=== PATIENT | female | born 1960 | race Caucasian/White ===

== ENCOUNTER 2016-07-12 14:56 | Inpatient (IN) | payer MEDICARE, MEDICAID ==
[~2016-07-12] VITALS: Ht 160 cm; Wt 114.6 kg
[~2016-07-12 14:56] MED LIST: ACHD5005 PO; ALPR0.25 PO; ALPR0.254 PO; ARFO15VI2 NEB; ASP325T PO; ASPI-587 PO; ASPI-875 PO; BUDE0.5A2 IH; BUDE10.2 INH; BUDE6HFA IH; CEPH500C PO; CMBV14.7IN; CYCL10TA9 PO; DARI7.5T2; DIPH25CA79 PO; EPIN0.3P3 IM; ESTR0.5T PO; ESTR0.5T3 PO; FESO4TAB PO; FLUO20CA25 PO; GABA-488 PO; HYDR-2858 PO; HYDR-2890 PO; HYDR-32; HYDR-3820 PO; HYDR1TAB86 PO; HYDR50TA3 PO; IBP800T PO; IPRA4AER IH; LEVO500T69 PO; MELO-195 PO; MNTL10T; MNTL10T PO; MONT10TA24 PO; NITR100C10 PO; NITR100C44 PO; NTR.4SL SL; OMEP20CA12 PO; ONDA-42 SL; ONDA4TAB10 PO; OXYB5TAB9 PO; OXYC-471 PO; OXYC1TAB25 PO; PHEN100T17 PO; PHEN200T27 PO; PRD20T PO; PREMPRO; PROP1TAB77; QUIN10TA23 PO; QUIN20TA15 PO; RANI150T11 PO; RNT150T PO; ROPI0.5T2 PO; RT-ALBUINH INH; SERT25TA5 PO; SIMV40TA4 PO; SOLI5TAB4 PO; TIOT18CA2 IH; TR1C15 TOP; TRAM-21 PO; [UNRECOGNIZED DRUG - OTHER]
--- OUTSIDE RECORDS SUMMARY | 2016-07-12 15:02 | XMS REPORT | Continuity of Care Document ---
Author Author [facility] Organization [facility] 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 If you do not see the information that you expected, contact Release of Information in the Health Information Management department at [phone] for further assistance in locating additional records.[facility] Active Allergies and Adverse Reactions Allergen Noted Date Severity Reactions Comments Bactrim 04/01/2015 Medium SEE COMMENTS "I couldn't move for 2 days - I felt like I was going to get sick" Bees 04/01/2015 High ANAPHYLAXIS Codeine 06/17/2014 Medium RASH Current Medications Prescription Sig. Disp. Refills Start End Date Status Date simvastatin (ZOCOR) 40 mg Take 40 mg by mouth Active tablet daily. quinapril(+) (ACCUPRIL) Take 20 mg by mouth Active 20 mg tablet daily. omeprazole DR(+) Take 20 mg by mouth Active (PRILOSEC) 20 mg capsule daily. rOPINIRole (REQUIP) 0.5 Take 0.5 mg by mouth at Active mg tablet bedtime daily. budesonide/formoterol Inhale 2 Puffs by mouth Active (SYMBICORT) 160/4.5 mcg twice daily. HFAA inhalation budesonide respule Inhale 0.25 mg solution Active (PULMICORT) 0.25 mg/2 mL as directed twice daily. nebulizer solution ranitidine(+) (ZANTAC) Take 150 mg by mouth Active 150 mg tablet twice daily. IPRATROPIUM/ALBUTEROL Inhale 2 Puffs by mouth Active SULFATE (COMBIVENT IN) every 8 hours as needed. hydrOXYzine (ATARAX) 50 Take 50 mg by mouth twice Active mg tablet daily. epinephrine(+) (EPIPEN) 1 Inject 0.3 mg to area(s) Active mg/mL injection pen as directed once as needed. OXYGEN-AIR DELIVERY Use as directed. Active SYSTEMS MISC HYDROcodone-acetaminophen Take 1 Tab by mouth every 60 Tab 0 07/22/19 Active (+) (NORCO) 10-325 mg 6 hours as needed for 15 tablet Pain. estrogens, conjugated(+) Apply a finger tip to 1 Container 11 Active (PREMARIN) 0.625 mg/g vaginal area three times 15 vaginal cream a week Arformoterol (BROVANA) 15 Inhale 15 mcg by mouth Active mcg/2 mL nebu twice daily. montelukast (SINGULAIR) Take 10 mg by mouth at Active 10 mg tablet bedtime daily. estradiol (ESTRACE) 0.5 Take 0.5 mg by mouth Active mg tablet daily. loratadine (CLARITIN) 10 Take 10 mg by mouth Active mg tablet daily. aspirin EC 81 mg tablet Take 81 mg by mouth Active daily. gabapentin (NEURONTIN) Take 300 mg by mouth at Active 300 mg capsule bedtime daily. nitrofurantoin SR Take 1 Cap by mouth every 14 Cap 0 04/21/20 Active (MACROBID) 100 mg capsule 12 hours. 15 Active Problems Problem Noted Date Recurrent UTI 11/22/2014 Overview: - Recurrent UTI since macroplastique injections 09/23/14. L ast Assessment & Plan: - estrogen cream tiw - timed and double voiding Mixed stress and urge urinary incontinence 11/22/2014 Overview: - UUI=VINCE - macroplastique 09/23/14 (VINCE improved, yet incomplete emptying) - 4 depends/ day UDS (03/22/15): small capacity; complete emptying; +DO; +LPP; sensory urgency; dyssinergia Cystoscopy was unremarkable. 04/23/15: 100u botox L ast Assessment & Plan: - rtc 4 months - patient to do cic post-void q3. 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 REPRESENTATIVE Pulse 81 04/13/2015 12:05 PM U.[employer]. REPRESENTATIVE Temperature 36.5 C (97.7 F) 04/13/2015 12:05 PM U.S. REPRESENTATIVE Respiratory Rate 16 03/22/2015 3:32 PM CDT Height 1.626 m (5' 4") 04/13/2015 9:11 AM U.[employer]. REPRESENTATIVE Weight 115 kg (253 lb 8.5 oz) 04/13/2015 9:11 AM U.[employer]. REPRESENTATIVE Body Mass Index 43.5 04/13/2015 9:11 AM U.[employer]. REPRESENTATIVE Oxygen Saturation 96% 04/13/2015 12:05 PM U.S. REPRESENTATIVE Plan of Care Health Maintenance Due Date Last Done Comments Physical (Comprehensive) 1969 Exam Pertussis Vaccine 1973 Tetanus Vaccine 1979 Cervical Cancer Screening 1983 Breast Cancer Screening 2002 Colorectal Cancer 2012 Screening Influenza Vaccine 02/10/2016 Results from Last 3 Months Not on file
[2016-07-12] MEDS ORDERED: NS IV 1000 ML 1,000 ML IV ONE (15:07)
--- NOTE | 2016-07-12 15:10 | ED General ---
General Chief Complaint: Head/Cervical Problems Stated Complaint: FALL Nursing Triage Note: PT TO [facility] BY [facility] WITH CC OF NECK AND BACK PAIN. PT WAS FOUND UNRESPONSIVE ON THE GROUND, AFTER WAKING UP STATED IV METH USE THIS A.M. PT STATES SHE SHOOTS UP IN HER BREAST, RT BREAST RED FROM INJECTION. Nursing Sepsis Screen: No Definite Risk Source of Information: Patient Exam Limitations: No Limitations History of Present Illness Time Seen by Provider: 15:02 Initial Comments Here by EMS with report of being found in a doorway unresponsive. On EMS arrival, patient was awake and complaining of head and neck pain. C-collar was applied by them. She later admitted to using methamphetamine by injecting it into her breast. She does have pain to the right breast. Caregiver called and stated that she was okay earlier. Patient admits to shooting up meth and multiple areas including bilateral breast and legs. Timing/Duration: 1/2 Hour Severity: Moderate Associated Systoms: No Chest Pain, No Cough, Fever/ChillsNo Nausea/Vomiting, No Shortness of Air, Weakness Allergies and Home Medications Allergies Coded Allergies: codeine (Unverified Allergy, Severe, ANAPHYLAXIS BUT PT CAN TAKE MORPHINE , 11/11/14) sulfamethoxazole (Unverified Allergy, Severe, 03/04/14) "STROKE-LIKE" SYMPTOMS trimethoprim (Unverified Allergy, Severe, 03/04/14) "STROKE-LIKE" SYMPTOMS venom-honey bee (Unverified Allergy, Unknown, 09/16/14) Home Medications Albuterol Sulfate 18 Gm Hfa.aer.ad 2 PUFF INH TID PRN PRN SHORTNESS OF BREATH ( Reported) Alprazolam 0.25 Mg Tablet 0.25 MG PO BID (Reported) Budesonide/Formoterol Fumarate 10.2 Gm Hfa.aer.ad 2 PUFF INH BID (Reported) Cyclobenzaprine HCl 10 Mg Tablet 10 MG PO BID (Reported) Epinephrine 0.3 Mg/0.3 Ml Pen.injctr 0.3 MG IM DAILY PRN PRN BEE STINGS ( Reported) Estradiol 0.5 Mg Tablet 0.5 MG PO HS (Reported) Fesoterodine Fumarate 4 Mg Tab.sr.24h 4 MG PO DAILY (Reported) Fluoxetine HCl 20 Mg Capsule 20 MG PO DAILY (Reported) Gabapentin 300 Mg Capsule 300 MG PO HS (Reported) Hydrochlorothiazide 50 Mg Tablet #30 25 MG PO HS Prescribed by: LAURA DUFFY on 04/13/16 1535 Hydrocodone/Acetaminophen 1 Each Tablet 1 TAB PO Q4H PRN PRN PAIN (Reported) Montelukast Sodium 10 Mg Tablet 10 MG PO HS (Reported) Nitrofurantoin Monohyd/M-Cryst 100 Mg Capsule 100 MG PO 1700 (Reported) Omeprazole 20 Mg Capsule.dr 20 MG PO HS (Reported) Ondansetron HCl 4 Mg Tablet 4 MG PO TID PRN PRN NAUSEA (Reported) Quinapril HCl 10 Mg Tablet 20 MG PO DAILY (Reported) TAKES 2 (10MG) TABLETS Ranitidine HCl 150 Mg Tablet 150 MG PO BID (Reported) Ropinirole HCl 0.5 Mg Tablet 0.5 MG PO HS (Reported) Simvastatin 40 Mg Tablet 40 MG PO DAILY (Reported) Constitutional: see HPI chillsNo fever, weakness EENTM: no symptoms reported Respiratory: No short of breath, No wheezing Cardiovascular: No chest pain, No edema Gastrointestinal: no symptoms reportedNo nausea, No vomiting Genitourinary: no symptoms reported Musculoskeletal: No back pain, muscle pain neck pain Skin: see HPI lesions lumps rash Psychiatric/Neurological: Anxiety Weakness Hematologic/Lymphatic: No Symptoms Reported Immunological/Allergic: no symptoms reported All Other Systems Reviewed Negative Unless Noted: Yes Past Kudsgbz-Hudomz-Zrclis Hx Patient Social History Type Used: Cigarettes Recent Foreign Travel: No Contact w/Someone Who Travel: No Recent Infectious Disease Expo: No Recent Hopitalizations: No Immunizations Up To Date Date of Pneumonia Vaccine: Feb 11, 2012 Date of Influenza Vaccine: Mar 16, 2016 Seasonal Allergies Seasonal Allergies: No Surgeries HX Surgeries: Yes (RIGHT TKR, LEFT KNEE SCOPE, HEART CATH, LEFT SHOULDER SCOPE , BILAT CTR) Surgeries: Hysterectomy Respiratory Hx Respiratory Disorders: Yes Respiratory Disorders: Asthma, COPD Cardiovascular Hx Cardiac Disorders: Yes (RECENT HEART CATH CLEAN) Cardiac Disorders: High Cholesterol, Hypertension Neurological Hx Neurological Disorders: Yes Reproductive System Hx Reproductive Disorders: No (HYTERECTOMY) Sexually Transmitted Disease: No HIV/AIDS: No Female Reproductive Disorders: Denies ENVIRONMENTAL INTERN History: Hysterectomy Genitourinary Hx Genitourinary Disorders: No Genitourinary Disorders: Bladder Infection, Neurogenic Bladder Gastrointestinal Hx Gastrointestinal Disorders: Yes Gastrointestinal Disorders: Gastroesophageal Reflux Musculoskeletal Hx Musculoskeletal Disorders: Yes (BACK PROBLEMS) Musculoskeletal Disorders: Degenerate Disk Disease, Arthritis, Chronic Back Pain Endocrine Hx Endocrine Disorders: No HEENT HX ENT Disorders: Yes (READING GLASSES) HEENT Disorders: Cataract Loss of Vision: Denies Hearing Impairment: Denies Cancer Hx Cancer: No Psychosocial Hx Psychiatric Problems: Yes Behavioral Health Disorders: Anxiety Integumentary HX Skin/Integumentary Disorder: Yes Skin/Integumentary Disorders: Psoriasis Blood Transfusions Hx Blood Disorders: No Adverse Reaction to a Blood Tr: No (N/A) Reviewed Nursing Assessment Reviewed/Agree w Nursing PMH: Yes Family Medical History Significant Family History: No Pertinent Family Hx Family Medial History: Patient reports no known family medical history. Physical Exam Vital Signs Vital Sign - Last 12Hours 07/12/16 07/12/16 15:01 15:20 Temp 97.2 Pulse 87 Resp 20 B/P 119/75 Pulse Ox 96 O2 Delivery Room Air O2 Flow Rate 2 Capillary Refill : Less Than 3 Seconds General Appearance: WD/WN Mild Distress HEENT: TMs Normal Pharynx Normal Other (pupils were pinpoint bilaterally and equal) Neck: Non Tender Supple Respiratory: Lungs Clear Normal Breath Sounds Cardiovascular: Regular Rate, Rhythm No Murmur Gastrointestinal: Non Tender Soft Back: Normal Inspection No CVA Tenderness No Vertebral Tenderness Extremity: Non Tender No Calf Tenderness Neurologic/Psychiatric: Alert Other (twitching movements and moaning but does answer questions and moves all 4 extremities.) Skin: Warm/Dry Erythema (erythema to the breast bilateral and bilateral outer thighs. Also noted to have erythema across the lower abdomen anteriorly.) Other (8 x 8 cm area of induration and erythema to the right breast with smaller area of induration and bruising noted to the left breast both in the upper medial area. She has a 6 x 6 area of induration to the right outer thigh with injection rodriguez and 10 x 8 cm area of induration and erythema to the left outer thigh with 3 x 3 cm area of necrotic skin to the central portion. She reports these her injection sites for methamphetamine.) Lumen: triple Central Line Procedure: betadine prep sterile drapes applied sterile dressing applied Position: internal jugular (R) Anesthesia: Lidocaine Volume Anesthetic (ccs): 3 Complications: none Post Position: sutured, good blood return, position confirmed w/ CXR Progress Placed via ultrasound guidance [address] with no complications. Good flush and draw noted. Progress/Results/Core Measures Results/Orders Lab Results Laboratory Tests Test 07/12/16 15:20 07/12/16 15:43 07/12/16 15:50 Range/Units Acetaminophen Level < 10 L 10-30 UG/ML Alanine Aminotransferase (ALT/SGPT) 26 0-55 U/L Albumin 3.7 3.2-4.5 G/DL Alkaline Phosphatase 66 40-136 U/L Anion Gap 13 5-14 MMOL/L Aspartate Amino Transf (AST/SGOT) 30 5-34 U/L BUN/Creatinine Ratio 12 Basophils # (Auto) 0.0 0.0-0.1 10^3/uL Basophils (%) (Auto) 0 0-10 % Blood Urea Nitrogen 12 7-18 MG/DL Calcium Level 9.2 8.5-10.1 MG/DL Carbon Dioxide Level 31 21-32 MMOL/L Chloride Level 93 L 98-107 MMOL/L Creatinine 0.98 0.60-1.30 MG/DL Eosinophils # (Auto) 0.1 0.0-0.3 10^3/uL Eosinophils (%) (Auto) 1 0-10 % Estimat Glomerular Filtration Rate 59 Glucose Level 117 H 70-105 MG/DL Hematocrit 39 35-52 % Hemoglobin 13.4 11.5-16.0 G/DL Lymphocytes # (Auto) 2.0 1.0-4.0 X 10^3 Lymphocytes (%) (Auto) 21 12-44 % Magnesium Level 1.7 L 1.8-2.4 MG/DL Mean Corpuscular Hemoglobin 30 25-34 PG Mean Corpuscular Hemoglobin Concent 34 32-36 G/DL Mean Corpuscular Volume 86 80-99 FL Mean Platelet Volume 11.6 H 7.4-10.4 FL Monocytes # (Auto) 1.3 H 0.0-1.0 X 10^3 Monocytes (%) (Auto) 13 H 0-12 % Neutrophils # (Auto) 6.4 1.8-7.8 X 10^3 Neutrophils (%) (Auto) 65 42-75 % Platelet Count 221 130-400 10^3/uL Potassium Level 2.0 *L 3.6-5.0 MMOL/L Red Blood Count 4.53 4.35-5.85 10^6/uL Red Cell Distribution Width 15.6 H 10.0-14.5 % Salicylates Level < 5.0 L 5.0-20.0 MG/DL Serum Alcohol < 10 <10 MG/DL Sodium Level 137 135-145 MMOL/L Thyroid Stimulating Hormone (TSH) 1.46 0.35-4.94 UIU/ML Total Bilirubin 0.6 0.1-1.0 MG/DL Total Protein 6.9 6.4-8.2 G/DL Valproic Acid (Depakene) Level < 2.0 L 50.0-100.0 UG/ML White Blood Count 9.8 4.3-11.0 10^3/uL Ur Tricyclic Antidepressants Screen NEGATIVE NEGATIVE Urine Amphetamines Screen POSITIVE H NEGATIVE Urine Barbiturates Screen NEGATIVE NEGATIVE Urine Benzodiazepines Screen POSITIVE H NEGATIVE Urine Cannabinoids Screen NEGATIVE NEGATIVE Urine Cocaine Screen NEGATIVE NEGATIVE Urine Methadone Screen NEGATIVE NEGATIVE Urine Methamphetamines Screen POSITIVE H NEGATIVE Urine Opiates Screen POSITIVE H NEGATIVE Urine Oxycodone Screen NEGATIVE NEGATIVE Urine Phencyclidine Screen NEGATIVE NEGATIVE Urine Propoxyphene Screen NEGATIVE NEGATIVE Lactic Acid Level 1.9 0.5-2.0 MMOL/L My Orders Orders-JUANA GODWIN MD Ct Head/Cervical Spine Wo (07/12/16 15:07) Acetaminophen (07/12/16 15:07) Alcohol (07/12/16 15:07) Cbc With Automated Diff (07/12/16 15:07) Comprehensive Metabolic Panel (07/12/16 15:07) Drug Screen Stat (Urine) (07/12/16 15:07) Magnesium (07/12/16 15:07) Salicylate (07/12/16 15:07) Thyroid Stimulating Hormone (07/12/16 15:07) Valproic Acid (07/12/16 15:07) Chest 1 View, Ap/Pa Only (07/12/16 15:07) Saline Lock/Iv-Start (07/12/16 15:07) Ns Iv 1000 Ml (Sodium Chloride 0.9%) (07/12/16 15:07) Ekg Tracing (07/12/16 15:07) O2 (07/12/16 15:07) Monitor-Rhythm Ecg Trace Only (07/12/16 15:07) Blood Culture (07/12/16 15:39) Lactic Acid Analyzer (07/12/16 15:39) Potassium Cl 10meq/50ml Ivpb (Kcl 10 Meq (2/1/17 17:15) Ceftriaxone Injection (Rocephin Injectio (07/12/16 17:15) Chest 1 View, Ap/Pa Only (07/12/16 17:07) Catheter(Urinary) Insert & Ass ,15 (07/12/16 17:07) Medications Given in ED Current Medications Medications Dose Ordered Sig/Alfred Route Start Time Stop Time Status Last Admin Dose Admin Sodium Chloride 1,000 ml @ 0 mls/hr Q0M ONCE IV 07/12/16 15:07 07/12/16 15:10 DC 07/12/16 16:43 1,000 MLS/HR Vital Signs/I&O Vital Sign - Last 12Hours 07/12/16 07/12/16 15:01 15:20 Temp 97.2 Pulse 87 Resp 20 B/P 119/75 Pulse Ox 96 94 O2 Delivery Room Air Nasal Cannula O2 Flow Rate 2 Blood Pressure Mean: 90 Progress Note : Progress Note Seen and evaluated. IV, labs, UA via catheter that was kept in place. CT head and neck ordered. Normal saline 1 L bolus. Due to multiple skin site infections, blood cultures and lactic acid ordered. Monitor patient. Potassium of 2.[address] negative. Patient had c-collar removed at [address] neck negative. Nexus criteria negative. Patient will need potassium and magnesium replacement as well as antibiotics do to wounds on legs and progressed. 1658: Case discussed with Dr. Riggins. She accepts patient for admission, inpatient status. We will initiate Rocephin 1 g IV after central line placement by me. Central line placed due to requirement of potassium replacement and patient has very poor IV access due to methamphetamine abuse and poor veins. Patient was very drowsy. Central line placed under emergent conditions for requirement of medication administration and frequent blood draws. Tolerated the procedure well with no complications. Potassium 10 mEq IV ordered as well as Rocephin 1 g IV ordered here. She will continue potassium , magnesium and antibiotics after admission to ICU. ICU admission due to critically low potassium. ECG Initial ECG Impression Date: Jul 12, 2016 Initial ECG Impression Time: 15:32 Initial ECG Rate: 87 Initial ECG Rhythm: Normal Sinus Comment Sinus rhythm with right ventricular hypertrophy. Right axis deviation. No evidence of ST elevation KS. Prolonged QT interval noted but similar to previous. Interpreted by me. Diagnostic Imaging Diagonstic Imaging: CT Plain Films/CT/US/NM/MRI: c-spine, head Comments NAME: ELLIOT GREENBERG [facility] REC#: [id number] PT STATUS: REG ER : 1960 PHYSICIAN: JUANA GODWIN MD ADMIT DATE: 07/12/16/ER Draft Date of Exam:07/12/16 CT HEAD/CERVICAL SPINE WO PROCEDURE: CT head and CT cervical spine without contrast. TECHNIQUE: Multiple contiguous axial images were obtained through the brain and cervical spine without the use of intravenous contrast. Sagittal and coronal reformations through the cervical spine were then performed. INDICATION: Fall. FINDINGS: CT HEAD: There is no intracranial hemorrhage, edema, or mass effect. The brain parenchyma and pacheco/white matter differentiation are preserved. There is no hydrocephalus. No extra-axial fluid collection is seen. The calvarium appears grossly unremarkable. There is minimal fluid in the right maxillary sinus. The orbits appear grossly unremarkable. CT CERVICAL SPINE: There is satisfactory alignment of the posterior spinal line. There are preserved vertebral body heights and disc heights. No widening of the predental space. There is satisfactory alignment of the lateral masses of C1 and C2 as well as of the atlantooccipital joints. No fracture is seen. IMPRESSION: CT HEAD: No intracranial hemorrhage. CT CERVICAL SPINE: No fracture is seen. Dictated on workstation # [id number] Dict: 07/12/16 1610 Trans: 07/12/16 1617 [id number] Interpreted by: TOAN GREY MD Electronically signed by: Cari Imaging: Xray Plain Films/CT/US/NM/MRI: chest Comments VIA [facility], [facility]. [place], [place] NAME: ELLIOT GREENBERG [facility] REC#: [id number] PT STATUS: REG ER : 1960 PHYSICIAN: JUANA GODWIN MD ADMIT DATE: 07/12/16/ER Draft Date of Exam:07/12/16 CHEST 1 VIEW, AP/PA ONLY EXAMINATION: Portable supine radiograph of the chest. INDICATION: Fall. FINDINGS: The lungs appear clear. The heart size is normal. No effusion or pneumothorax on this supine radiograph. The mediastinum and jian appear unremarkable. IMPRESSION: Unremarkable exam. Dictated on workstation # [id number] Dict: 07/12/16 1615 Trans: 07/12/16 1618 [id number] Interpreted by: TOAN GREY MD Electronically signed by: Departure Communication Time/Spoke to Admitting Phy: 16:58 Impression Impression: Primary Impression: Hypokalemia Additional Impressions: Methamphetamine abuse Multiple wounds of skin Disposition: ADMITTED INPATIENT Condition: Critical Decision to Admit Reason: Admit from ER (General) Decision to Admit/Date: Jul 12, 2016 Time/Decision to Admit Time: 16:58 Departure-Patient Inst. Referrals: [facility] (PCP/Family) Primary Care Physician JUANA GODWIN MD Jul 12, 2016 15:10
[2016-07-12 15:33] LABS: BASOPHILS % (AUTO) 0 % (0-10); EOSINOPHILS # (AUTO) 0.1 10^3/uL (0.0-0.3); EOSINOPHILS % (AUTO) 1 % (0-10); LYMPHOCYTES % (AUTO) 21 % (12-44); MEAN CORPUSCULAR HEMOGLOBIN 30 PG (25-34); MEAN CORPUSCULAR HGB CONC 34 G/DL (32-36); MEAN CORPUSCULAR VOLUME 86 FL (80-99); MEAN PLATELET VOLUME 11.6 FL (7.4-10.4); MONOCYTES # (AUTO) 1.3 X 10^3 (0.0-1.0); MONOCYTES % (AUTO) 13 % (0-12); NEUTROPHILS # (AUTO) 6.4 X 10^3 (1.8-7.8); NEUTROPHILS % (AUTO) 65 % (42-75); PLATELET COUNT 221 10^3/uL (130-400); RED BLOOD COUNT 4.53 10^6/uL (4.35-5.85); RED CELL DISTRIBUTION WIDTH 15.6 % (10.0-14.5); WHITE BLOOD COUNT 9.8 10^3/uL (4.3-11.0)
[2016-07-12 15:57] LABS: ALANINE AMINOTRANSFERASE 26 U/L (0-55); ALBUMIN 3.7 G/DL (3.2-4.5); ANION GAP 13 MMOL/L (5-14); ASPARTATE AMINO TRANSFERASE 30 U/L (5-34); BILIRUBIN,TOTAL 0.6 MG/DL (0.1-1.0); BLOOD UREA NITROGEN 12 MG/DL (7-18); BUN/CREATININE RATIO 12; CALCIUM 9.2 MG/DL (8.5-10.1); CARBON DIOXIDE 31 MMOL/L (21-32); CHLORIDE 93 MMOL/L (98-107); CREATININE SERUM 0.98 MG/DL (0.60-1.30); GFR ESTIMATED 59; GLUCOSE 117 MG/DL (70-105); MAGNESIUM 1.7 MG/DL (1.8-2.4); SALICYLATE < 5.0 MG/DL (5.0-20.0); SODIUM 137 MMOL/L (135-145); TOTAL PROTEIN 6.9 G/DL (6.4-8.2)
[2016-07-12 16:04] LABS: ACETAMINOPHEN < 10 UG/ML (10-30); ALCOHOL < 10 MG/DL (<10)
[2016-07-12 16:16] LABS: THYROID STIMULATING HORMONE 1.46 UIU/ML (0.35-4.94)
--- NOTE | 2016-07-12 16:18 | Diagnostic Imaging Report ---
EXAMINATION: Portable supine radiograph of the chest. INDICATION: Fall. FINDINGS: The lungs appear clear. The heart size is normal. No effusion or pneumothorax on this supine radiograph. The mediastinum and jian appear unremarkable. IMPRESSION: Unremarkable exam. Dictated by: Dictated on workstation # [id number]
--- NOTE | 2016-07-12 16:18 | Diagnostic Imaging Report ---
PROCEDURE: CT head and CT cervical spine without contrast. TECHNIQUE: Multiple contiguous axial images were obtained through the brain and cervical spine without the use of intravenous contrast. Sagittal and coronal reformations through the cervical spine were then performed. INDICATION: Fall. FINDINGS: CT HEAD: There is no intracranial hemorrhage, edema, or mass effect. The brain parenchyma and pacheco/white matter differentiation are preserved. There is no hydrocephalus. No extra-axial fluid collection is seen. The calvarium appears grossly unremarkable. There is minimal fluid in the right maxillary sinus. The orbits appear grossly unremarkable. CT CERVICAL SPINE: There is satisfactory alignment of the posterior spinal line. There are preserved vertebral body heights and disc heights. No widening of the predental space. There is satisfactory alignment of the lateral masses of C1 and C2 as well as of the atlantooccipital joints. No fracture is seen. IMPRESSION: CT HEAD: No intracranial hemorrhage. CT CERVICAL SPINE: No fracture is seen. Dictated by: Dictated on workstation # [id number]
[2016-07-12 16:25] LABS: VALPROIC ACID < 2.0 UG/ML (50.0-100.0)
[2016-07-12] MEDS ORDERED: POTASSIUM CL 10MEQ/50ML IVPB 50 ML IV ONE (17:15)
[2016-07-12] MEDS ORDERED: cefTRIAXone INJECTION 1,000 MG in NS (IVPB) 50 ML IV ONE (17:15)
--- NOTE | 2016-07-12 18:06 | Diagnostic Imaging Report ---
EXAMINATION: Portable chest. INDICATION: Line placement. COMPARISON: Prior study from earlier the same day. FINDINGS: A new right internal jugular line has been placed and terminates within the distal SVC. There is no pneumothorax. Appearance of the chest is otherwise not significantly changed. There is suggestion that there may be some slight increased prominence of the pulmonary interstitium and mild interstitial edema cannot be completely excluded. There is no alveolar consolidation. There is no effusion. There is no pneumothorax. IMPRESSION: 1. The right internal jugular line has been placed and terminates within the SVC. There is no pneumothorax. 2. There is very subtle prominence of the basilar interstitial markings. Mild interstitial edema cannot be completely excluded. Dictated by: Dictated on workstation # [id number]
[2016-07-12 19:00] VITALS: BP 110/56
[2016-07-12] MEDS ORDERED: CATHETER FLUSH 10 ML SYR IV PRN (19:00)
[2016-07-12] MEDS ORDERED: VANCOMYCIN 2000 MG/NS 500 ML IVPB IV NR ×2 (19:00)
[2016-07-12 20:00] VITALS: BP 96/63
[2016-07-12] MEDS: NS IV 1000 ML 1,000 ML IV SCH (20:40)
[2016-07-12] MEDS: POTASSIUM CL 10 MEQ/50 ML IVPB (PRE-MIX) IV SCH ×5 (20:40→23:02)
[2016-07-12] MEDS: MAGNESIUM 1 GM/D5W 100 ML IVPB IV SCH ×2 (20:41→21:45)
[2016-07-12 21:00] VITALS: BP 104/43
[2016-07-12] MEDS ORDERED: RT-ALBUTEROL SULF 2.5 MG/3 ML PRE-MIX VIAL INH PRN (21:00)
[2016-07-12 22:00] VITALS: BP 94/49
[2016-07-12 23:00] VITALS: BP 94/49
[2016-07-13] VITALS (22 sets, daily range): BP systolic 84–129; BP diastolic 44–91
[2016-07-13] MEDS: POTASSIUM CL 10 MEQ/50 ML IVPB (PRE-MIX) IV SCH ×7 (00:07→07:48)
[2016-07-13 04:26] LABS: BASOPHILS % (AUTO) 0 % (0-10); EOSINOPHILS # (AUTO) 0.2 10^3/uL (0.0-0.3); EOSINOPHILS % (AUTO) 3 % (0-10); LYMPHOCYTES # (AUTO) 1.4 X 10^3 (1.0-4.0); LYMPHOCYTES % (AUTO) 22 % (12-44); MEAN CORPUSCULAR HEMOGLOBIN 30 PG (25-34); MEAN CORPUSCULAR HGB CONC 33 G/DL (32-36); MEAN CORPUSCULAR VOLUME 89 FL (80-99); MEAN PLATELET VOLUME 11.3 FL (7.4-10.4); MONOCYTES # (AUTO) 0.9 X 10^3 (0.0-1.0); MONOCYTES % (AUTO) 13 % (0-12); NEUTROPHILS % (AUTO) 62 % (42-75); PLATELET COUNT 186 10^3/uL (130-400); RED BLOOD COUNT 4.02 10^6/uL (4.35-5.85); WHITE BLOOD COUNT 6.4 10^3/uL (4.3-11.0)
[2016-07-13 04:40] LABS: ALANINE AMINOTRANSFERASE 20 U/L (0-55); ALBUMIN 2.9 G/DL (3.2-4.5); ANION GAP 11 MMOL/L (5-14); ASPARTATE AMINO TRANSFERASE 26 U/L (5-34); BILIRUBIN,TOTAL 0.6 MG/DL (0.1-1.0); BLOOD UREA NITROGEN 7 MG/DL (7-18); BUN/CREATININE RATIO 10; CALCIUM 7.8 MG/DL (8.5-10.1); CARBON DIOXIDE 29 MMOL/L (21-32); CHLORIDE 101 MMOL/L (98-107); CREATININE SERUM 0.72 MG/DL (0.60-1.30); GFR ESTIMATED > 60; GLUCOSE 115 MG/DL (70-105); SODIUM 141 MMOL/L (135-145); TOTAL PROTEIN 5.7 G/DL (6.4-8.2)
[2016-07-13] MEDS: NS IV 1000 ML 1,000 ML IV SCH ×3 (04:49→22:26)
[2016-07-13 04:50] LABS: POTASSIUM 2.4 MMOL/L (3.6-5.0)
[2016-07-13] MEDS ORDERED: KCL 20 MEQ TAB (K-DUR) PO ONE (05:30)
[2016-07-13] MEDS ORDERED: POTASSIUM CL 10MEQ/50ML IVPB 50 ML IV SCH ×2 (05:30)
[2016-07-13] MEDS: POTASSIUM CL 10MEQ/50ML IVPB 50 ML IV SCH (05:34)
[2016-07-13] MEDS: KCL 20 MEQ TAB (K-DUR) PO SCH ×4 (05:35→18:42)
[2016-07-13] MEDS: MAGNESIUM 1 GM/100 ML IVPB 100 ML IV SCH (05:35)
[2016-07-13] MEDS: RT-ADVAIR HFA 115/21 MCG PER PUFF IH SCH ×2 (06:16→19:56)
[2016-07-13] MEDS: VANCOMYCIN 1250 MG/NS 250 ML IVPB IV SCH ×4 (06:30→19:42)
[2016-07-13] MEDS ORDERED: METO-270 PO (09:50)
[2016-07-13] MEDS ORDERED: HYDR-3812 PO (09:50)
[2016-07-13] MEDS ORDERED: SERT25TA5 PO (09:50)
[2016-07-13] MEDS ORDERED: HYDR25TA4 PO (09:50)
--- NOTE | 2016-07-13 11:48 | History & Physicial (CHS) ---
HPI History of Present Illness: 56 yo F that was admitted from ER brought in by ambulance because she was unresponsive after injecting Meth. This AM patient is awake and alert. States that she was not trying to hurt herself. States that she was very depressed and that is why she went and got Meth. States that she only uses Meth about once every other week. She says that she has been under alot of stress. She is on anti depressants but says that they makes her have hallucinations so she stopped taking them. She did not tell her PCP Stuart this so that they could adjust her medication. Redness and pain to Right breast. This is an area that she has been using to shoot the meth. She has a large black eschar on her Left thigh that she states has been present for a couple months. She states that she has not used this area for her drug use. Upon arrival she was found to be profoundly hypokalemic without ECG changes. She was replaced in ER and placed on protocol overnight. Source: patient, RN/MD, old records Exam Limitations: no limitations Date seen by provider: Jul 13, 2016 Attending Physician Yamilet Riggins [place] [facility] [place] Date of Admission Jul 12, 2016 at 18:16 Home Medications Home Medications Reviewed patient Home Medication Reconciliation Form Allergies Coded Allergies: codeine (Unverified Allergy, Severe, ANAPHYLAXIS BUT PT CAN TAKE MORPHINE , 11/11/14) sulfamethoxazole (Unverified Allergy, Severe, 03/04/14) "STROKE-LIKE" SYMPTOMS trimethoprim (Unverified Allergy, Severe, 03/04/14) "STROKE-LIKE" SYMPTOMS venom-honey bee (Unverified Allergy, Unknown, 09/16/14) NUS-Gotgse-Rbefee Hx Patient Social History Living Status: Alone in home Alcohol Use: Regular Use Recreational Drug Use: Yes (Meth) Drug of Choice: meth Smoking Status: Current Everyday Smoker (1/2 ppd) Type Used: Cigarettes Recent Foreign Travel: No Contact w/other who traveled: No Recent Hopitalizations: No (UNKNOWN) Recent Infectious Disease Expo: No Physical Abuse Screen: No Sexual Abuse: No Immunizations Up To Date Date of Pneumonia Vaccine: Feb 11, 2012 Date of Influenza Vaccine: Mar 16, 2016 Past Medical History COPD HTN Substance Abuse (Meth) Depression Family Medical History Significant Family History: No Pertinent Family Hx Family History: Patient reports no known family medical history. Review of Systems ([facility]) Constitutional: no symptoms reportedNo chills, No dizziness, No fever EENTM: no symptoms reported Respiratory: no symptoms reported dyspnea on exertion (baseline)No orthopnea, No short of breath, No wheezing Cardiovascular: no symptoms reportedNo chest pain, No edema, No palpitations Gastrointestinal: no symptoms reportedNo abdominal pain, No constipation, No diarrhea, No hematemesis, No nausea, No vomiting Genitourinary: no symptoms reportedNo dysuria, No frequency, No hematuria, No incontinence : No Musculoskeletal: back pain (chronic) Skin: lesions (Wounds present on Left thigh and Right breast) Psychiatric/Neurological: Anxiety DepressedDenies Headache, Denies Seizure, Denies Tingling, Denies Tremors, Denies Weakness Reviewed Test Results Reviewed Test Results Lab Laboratory Tests Test 07/12/16 15:20 07/12/16 15:43 07/12/16 15:50 07/13/16 04:11 Range/Units Acetaminophen Level < 10 L 10-30 UG/ML Alanine Aminotransferase (ALT/SGPT) 26 20 0-55 U/L Albumin 3.7 2.9 L 3.2-4.5 G/DL Alkaline Phosphatase 66 52 40-136 U/L Anion Gap 13 11 5-14 MMOL/L Aspartate Amino Transf (AST/SGOT) 30 26 5-34 U/L BUN/Creatinine Ratio 12 10 Basophils # (Auto) 0.0 0.0 0.0-0.1 10^3/uL Basophils (%) (Auto) 0 0 0-10 % Blood Urea Nitrogen 12 7 7-18 MG/DL Calcium Level 9.2 7.8 L 8.5-10.1 MG/DL Carbon Dioxide Level 31 29 21-32 MMOL/L Chloride Level 93 L 101 98-107 MMOL/L Creatinine 0.98 0.72 0.60-1.30 MG/DL Eosinophils # (Auto) 0.1 0.2 0.0-0.3 10^3/uL Eosinophils (%) (Auto) 1 3 0-10 % Estimat Glomerular Filtration Rate 59 > 60 Glucose Level 117 H 115 H 70-105 MG/DL Hematocrit 39 36 35-52 % Hemoglobin 13.4 11.9 11.5-16.0 G/DL Lymphocytes # (Auto) 2.0 1.4 1.0-4.0 X 10^3 Lymphocytes (%) (Auto) 21 22 12-44 % Magnesium Level 1.7 L 2.1 1.8-2.4 MG/DL Mean Corpuscular Hemoglobin 30 30 25-34 PG Mean Corpuscular Hemoglobin Concent 34 33 32-36 G/DL Mean Corpuscular Volume 86 89 80-99 FL Mean Platelet Volume 11.6 H 11.3 H 7.4-10.4 FL Monocytes # (Auto) 1.3 H 0.9 0.0-1.0 X 10^3 Monocytes (%) (Auto) 13 H 13 H 0-12 % Neutrophils # (Auto) 6.4 4.0 1.8-7.8 X 10^3 Neutrophils (%) (Auto) 65 62 42-75 % Platelet Count 221 186 130-400 10^3/uL Potassium Level 2.0 *L 2.4 *L 3.6-5.0 MMOL/L Red Blood Count 4.53 4.02 L 4.35-5.85 10^6/uL Red Cell Distribution Width 15.6 H 16.0 H 10.0-14.5 % Salicylates Level < 5.0 L 5.0-20.0 MG/DL Serum Alcohol < 10 <10 MG/DL Sodium Level 137 141 135-145 MMOL/L Thyroid Stimulating Hormone (TSH) 1.46 0.35-4.94 UIU/ML Total Bilirubin 0.6 0.6 0.1-1.0 MG/DL Total Protein 6.9 5.7 L 6.4-8.2 G/DL Valproic Acid (Depakene) Level < 2.0 L 50.0-100.0 UG/ML White Blood Count 9.8 6.4 4.3-11.0 10^3/uL Ur Tricyclic Antidepressants Screen NEGATIVE NEGATIVE Urine Amphetamines Screen POSITIVE H NEGATIVE Urine Barbiturates Screen NEGATIVE NEGATIVE Urine Benzodiazepines Screen POSITIVE H NEGATIVE Urine Cannabinoids Screen NEGATIVE NEGATIVE Urine Cocaine Screen NEGATIVE NEGATIVE Urine Methadone Screen NEGATIVE NEGATIVE Urine Methamphetamines Screen POSITIVE H NEGATIVE Urine Opiates Screen POSITIVE H NEGATIVE Urine Oxycodone Screen NEGATIVE NEGATIVE Urine Phencyclidine Screen NEGATIVE NEGATIVE Urine Propoxyphene Screen NEGATIVE NEGATIVE Lactic Acid Level 1.9 0.5-2.0 MMOL/L Radiology Date of Exam: 07/12/16 CHEST 1 VIEW, AP/PA ONLY EXAMINATION: Portable chest. INDICATION: Line placement. COMPARISON: Prior study from earlier the same day. FINDINGS: A new right internal jugular line has been placed and terminates within the distal SVC. There is no pneumothorax. Appearance of the chest is otherwise not significantly changed. There is suggestion that there may be some slight increased prominence of the pulmonary interstitium and mild interstitial edema cannot be completely excluded. There is no alveolar consolidation. There is no effusion. There is no pneumothorax. IMPRESSION: 1. The right internal jugular line has been placed and terminates within the SVC. There is no pneumothorax. 2. There is very subtle prominence of the basilar interstitial markings. Mild interstitial edema cannot be completely excluded. Date of Exam: 07/12/16 CT HEAD/CERVICAL SPINE WO PROCEDURE: CT head and CT cervical spine without contrast. TECHNIQUE: Multiple contiguous axial images were obtained through the brain and cervical spine without the use of intravenous contrast. Sagittal and coronal reformations through the cervical spine were then performed. INDICATION: Fall. FINDINGS: CT HEAD: There is no intracranial hemorrhage, edema, or mass effect. The brain parenchyma and pacheco/white matter differentiation are preserved. There is no hydrocephalus. No extra-axial fluid collection is seen. The calvarium appears grossly unremarkable. There is minimal fluid in the right maxillary sinus. The orbits appear grossly unremarkable. CT CERVICAL SPINE: There is satisfactory alignment of the posterior spinal line. There are preserved vertebral body heights and disc heights. No widening of the predental space. There is satisfactory alignment of the lateral masses of C1 and C2 as well as of the atlantooccipital joints. No fracture is seen. IMPRESSION: CT HEAD: No intracranial hemorrhage. CT CERVICAL SPINE: No fracture is seen. Physical Exam-([facility]) Physical Exam Vital Signs VS - Last 72 Hours, by Label 07/12/16 07/12/16 07/12/16 07/12/16 15:01 15:20 18:50 19:00 Temp 97.2 97.4 Pulse 87 83 80 Resp 20 18 B/P 119/75 Pulse Ox 96 94 97 O2 Delivery Room Air Nasal Cannula O2 Flow Rate 2 2 07/12/16 07/12/16 07/12/16 07/12/16 19:00 20:00 20:07 20:42 Temp 98.1 Pulse 82 76 Resp 19 19 B/P 110/56 96/63 Pulse Ox 97 97 97 98 O2 Delivery Nasal Cannula Nasal Cannula O2 Flow Rate 2.00 2.00 2.00 2.50 07/12/16 07/12/16 07/12/16 07/12/16 20:43 21:00 22:00 23:00 Pulse 77 77 80 Resp 20 16 21 B/P 104/43 94/49 94/49 Pulse Ox 98 97 96 96 O2 Delivery Nasal Cannula Nasal Cannula Nasal Cannula O2 Flow Rate 2.00 2.00 2.00 07/13/16 07/13/16 07/13/16 07/13/16 00:00 00:07 01:00 01:09 Temp 97.7 Pulse 82 84 82 Resp 17 15 B/P 101/47 98/57 Pulse Ox 95 96 O2 Delivery Nasal Cannula Nasal Cannula O2 Flow Rate 2.00 2.00 2.00 07/13/16 07/13/16 07/13/16 07/13/16 02:00 03:00 04:00 04:16 Temp 98.7 Pulse 82 90 87 Resp 27 13 22 B/P 105/57 101/57 104/58 Pulse Ox 97 95 94 O2 Delivery Nasal Cannula Nasal Cannula Nasal Cannula O2 Flow Rate 2.00 2.00 2.00 2.00 07/13/16 07/13/16 07/13/16 07/13/16 06:17 07:00 07:00 08:24 Pulse 86 86 Resp 20 B/P 94/59 Pulse Ox 95 93 O2 Delivery Nasal Cannula O2 Flow Rate 0.50 2.00 2.00 07/13/16 07/13/16 07/13/16 07/13/16 08:24 09:00 10:00 11:07 Temp 97.7 Pulse 85 87 86 Resp 14 21 23 B/P 85/62 87/63 95/60 Pulse Ox 97 94 96 93 O2 Delivery Nasal Cannula Nasal Cannula Nasal Cannula O2 Flow Rate 2.00 2.00 2.00 0.50 Capillary Refill : Less Than 3 Seconds General Appearance: WD/WN no apparent distress Eyes: Bilateral Eye EOMI, Bilateral Eye Normal Inspection, Bilateral Eye PERRL Neck: non-tender (Right IJ line in place) full range of motion supple normal inspection Respiratory: chest non-tender normal breath sounds no respiratory distress no accessory muscle useNo accessory muscle use, No crackles, wheezing expiration Cardiovascular: normal peripheral pulses regular rate, rhythm no edema no gallop no JVD no murmur Gastrointestinal: normal bowel sounds non tender soft no organomegaly no pulsatile mass Extremities: normal range of motion non-tender normal inspection no pedal edema no calf tenderness normal capillary refill Neurologic/Psychiatric: entertainment lawyer II-XII nml as tested no motor/sensory deficits alert normal mood/affect oriented x 3 Skin: other (Right breast: + Erythema with some induration, ttp. Left thigh: large black eschar present, very ttp, mild erythema around edges, no streaking, no drainage) Lymphatic: no adenopathy Assessment/Plan Assessment/Plan Admission Dx Altered Mental Status Severe Hypokalemia Left thigh Eschar Right breast Cellulitis Substance Abuse H/o HTN COPD Depression Plan 56 yo F that was brought into ER after being found unresponsive after drug overdose found to be severely hypokalemic Altered Mental Status: Patient is not back to her baseline, likely 2/2 drug overdose Severe Hypokalemia - Replacing per IV protocol - No ECG changes this AM Left thigh Eschar - Would care consulted, will likely need surgical debridement - Continue Antibiotics Right breast Cellulitis Substance Abuse - Patient states that she was not trying to hurt herself, offered outpatient substance abuse treatment at [facility] H/o HTN - Hold home BP medications at this time because of hypotension COPD - A/A nebs PRN Depression - Continue home medications FEN: Heart healthy diet DVT PPX: lovenox Dispo: Admit to ICU for severe hypokalemia and large replacement Diagnosis/Problems: Clinical Quality Measures DVT/VTE Risk/Contraindication: Risk Factor Score Per Nursin RFS Level Per Nursing on Admit: 4+=Very High Copy Copies To 1: [facility] YAMILET Malloy MD Jul 13, 2016 11:48
--- NOTE | 2016-07-13 13:18 | Wound Care Progress Note ---
Subjective Subjective Subjective/Events-last exam 56 year old female with a necrotic ulcer of L lateral thigh, with surrounding cellulitis. The patient admits to skin popping on R breast, but denies doing the same on her L thigh. PMH: COPD, HTN. SH: Smokes. Current methamphetamine use. FH: Non-contributory. Review of Systems General: Chills Pulmonary: No Dyspnea Cardiovascular: No: Chest Pain Gastrointestinal: : Nausea Objective Exam Last Set of Vital Signs Vital Signs Date Time Temp Pulse Resp B/P Pulse Ox O2 Delivery O2 Flow Rate FiO2 07/13/16 11:07 93 0.50 07/13/16 10:00 86 23 95/60 Nasal Cannula 07/13/16 08:24 97.7 Capillary Refill : Less Than 3 Seconds I&O Bad tableGeneral: Alert, Mild Distress Lungs: Normal Air Movement Skin: Other (L thigh wound -- 2.7 x 2.5 x 1.6 cm,100% dry eschar.) Results Lab Laboratory Tests 07/12/16 15:20: Acetaminophen Level < 10L, Alanine Aminotransferase (ALT/SGPT) 26, Albumin 3.7, Alkaline Phosphatase 66, Anion Gap 13, Aspartate Amino Transf (AST/SGOT) 30, BUN /Creatinine Ratio 12, Basophils # (Auto) 0.0, Basophils (%) (Auto) 0, Blood Urea Nitrogen 12, Calcium Level 9.2, Carbon Dioxide Level 31, Chloride Level 93L , Creatinine 0.98, Eosinophils # (Auto) 0.1, Eosinophils (%) (Auto) 1, Estimat Glomerular Filtration Rate 59, Glucose Level 117H, Hematocrit 39, Hemoglobin 13.4, Lymphocytes # (Auto) 2.0, Lymphocytes (%) (Auto) 21, Magnesium Level 1.7L , Mean Corpuscular Hemoglobin 30, Mean Corpuscular Hemoglobin Concent 34, Mean Corpuscular Volume 86, Mean Platelet Volume 11.6H, Monocytes # (Auto) 1.3H, Monocytes (%) (Auto) 13H, Neutrophils # (Auto) 6.4, Neutrophils (%) (Auto) 65, Platelet Count 221, Potassium Level 2.0*L, Red Blood Count 4.53, Red Cell Distribution Width 15.6H, Salicylates Level < 5.0L, Serum Alcohol < 10, Sodium Level 137, Thyroid Stimulating Hormone (TSH) 1.46, Total Bilirubin 0.6, Total Protein 6.9, Valproic Acid (Depakene) Level < 2.0L, White Blood Count 9.8 07/12/16 15:43: Ur Tricyclic Antidepressants Screen NEGATIVE, Urine Amphetamines Screen POSITIVEH, Urine Barbiturates Screen NEGATIVE, Urine Benzodiazepines Screen POSITIVEH, Urine Cannabinoids Screen NEGATIVE, Urine Cocaine Screen NEGATIVE, Urine Methadone Screen NEGATIVE, Urine Methamphetamines Screen POSITIVEH, Urine Opiates Screen POSITIVEH, Urine Oxycodone Screen NEGATIVE, Urine Phencyclidine Screen NEGATIVE, Urine Propoxyphene Screen NEGATIVE 07/12/16 15:50: Lactic Acid Level 1.9 07/13/16 04:11: Alanine Aminotransferase (ALT/SGPT) 20, Albumin 2.9L, Alkaline Phosphatase 52, Anion Gap 11, Aspartate Amino Transf (AST/SGOT) 26, BUN/Creatinine Ratio 10, Basophils # (Auto) 0.0, Basophils (%) (Auto) 0, Blood Urea Nitrogen 7, Calcium Level 7.8L, Carbon Dioxide Level 29, Chloride Level 101, Creatinine 0.72, Eosinophils # (Auto) 0.2, Eosinophils (%) (Auto) 3, Estimat Glomerular Filtration Rate > 60, Glucose Level 115H, Hematocrit 36, Hemoglobin 11.9, Lymphocytes # (Auto) 1.4, Lymphocytes (%) (Auto) 22, Magnesium Level 2.1, Mean Corpuscular Hemoglobin 30, Mean Corpuscular Hemoglobin Concent 33, Mean Corpuscular Volume 89, Mean Platelet Volume 11.3H, Monocytes # (Auto) 0.9, Monocytes (%) (Auto) 13H, Neutrophils # (Auto) 4.0, Neutrophils (%) (Auto) 62, Platelet Count 186, Potassium Level 2.4*L, Red Blood Count 4.02L, Red Cell Distribution Width 16.0H, Sodium Level 141, Total Bilirubin 0.6, Total Protein 5.7L, White Blood Count 6.4 Assessment/Plan Assessment/Plan Assessment/Plan 1. Ulcer, L thigh, full thickness. 2. Drug abuse. 3. cellulitis L thigh and R breast. Plan: will observe and use protective dressing to L thigh. SOSA RESENDIZ MD Jul 13, 2016 13:18
[2016-07-13] MEDS: SERTRALINE 50 MG (ZOLOFT) TABLET PO SCH (13:28)
[2016-07-13] MEDS: ENOXAPARIN 40 MG/0.4 ML (LOVENOX) SYR SC SCH (13:29)
[2016-07-13] MEDS ORDERED: LIDOCAINE/EPI 1%-1:100,000 (XYLOCAINE) 20ML INJ ONE (13:30)
[2016-07-13 13:58] LABS: ANION GAP 7 MMOL/L (5-14); BLOOD UREA NITROGEN 8 MG/DL (7-18); BUN/CREATININE RATIO 12; CALCIUM 7.8 MG/DL (8.5-10.1); CARBON DIOXIDE 30 MMOL/L (21-32); CHLORIDE 102 MMOL/L (98-107); CREATININE SERUM 0.68 MG/DL (0.60-1.30); GFR ESTIMATED > 60; GLUCOSE 103 MG/DL (70-105); POTASSIUM 2.7 MMOL/L (3.6-5.0); SODIUM 139 MMOL/L (135-145)
[2016-07-13] MEDS ORDERED: TROUGH ORDER-PHARMACY XX NR (18:00)
[2016-07-13] MEDS ORDERED: POVIDONE (BETADINE) 10% SOLN 240 ML BTL TOP SCH (18:00)
[2016-07-13] MEDS: ALPRAZolam 0.25 MG (XANAX) TAB PO SCH (20:24)
[2016-07-13] MEDS: MONTELUKAST 10 MG (SINGULAIR) TAB PO SCH (20:24)
[2016-07-13] MEDS: FAMOTIDINE 20 MG (PEPCID) TABLET PO SCH (20:24)
[2016-07-13] MEDS: rOPINIRole 0.25 MG (REQUIP) TAB PO SCH (20:25)
[2016-07-13] MEDS: GABAPENTIN 300 MG (NEURONTIN) CAP PO SCH (20:25)
[2016-07-13 23:03] LABS: ANION GAP 7 MMOL/L (5-14); BLOOD UREA NITROGEN 7 MG/DL (7-18); BUN/CREATININE RATIO 10; CALCIUM 7.6 MG/DL (8.5-10.1); CARBON DIOXIDE 28 MMOL/L (21-32); CHLORIDE 107 MMOL/L (98-107); CREATININE SERUM 0.67 MG/DL (0.60-1.30); GFR ESTIMATED > 60; GLUCOSE 104 MG/DL (70-105); POTASSIUM 3.4 MMOL/L (3.6-5.0); SODIUM 142 MMOL/L (135-145)
[2016-07-14] VITALS (18 sets, daily range): BP systolic 88–123; BP diastolic 48–81
[2016-07-14 04:43] LABS: BASOPHILS % (AUTO) 0 % (0-10); EOSINOPHILS # (AUTO) 0.2 10^3/uL (0.0-0.3); EOSINOPHILS % (AUTO) 3 % (0-10); LYMPHOCYTES # (AUTO) 1.8 X 10^3 (1.0-4.0); LYMPHOCYTES % (AUTO) 28 % (12-44); MEAN CORPUSCULAR HEMOGLOBIN 30 PG (25-34); MEAN CORPUSCULAR HGB CONC 33 G/DL (32-36); MEAN CORPUSCULAR VOLUME 91 FL (80-99); MEAN PLATELET VOLUME 11.1 FL (7.4-10.4); MONOCYTES # (AUTO) 0.6 X 10^3 (0.0-1.0); MONOCYTES % (AUTO) 10 % (0-12); NEUTROPHILS # (AUTO) 3.8 X 10^3 (1.8-7.8); NEUTROPHILS % (AUTO) 60 % (42-75); PLATELET COUNT 185 10^3/uL (130-400); RED CELL DISTRIBUTION WIDTH 16.8 % (10.0-14.5); WHITE BLOOD COUNT 6.4 10^3/uL (4.3-11.0)
[2016-07-14 05:09] LABS: ANION GAP 8 MMOL/L (5-14); BLOOD UREA NITROGEN 6 MG/DL (7-18); BUN/CREATININE RATIO 9; CALCIUM 7.5 MG/DL (8.5-10.1); CARBON DIOXIDE 26 MMOL/L (21-32); CHLORIDE 110 MMOL/L (98-107); CREATININE SERUM 0.67 MG/DL (0.60-1.30); GFR ESTIMATED > 60; GLUCOSE 104 MG/DL (70-105); MAGNESIUM 1.8 MG/DL (1.8-2.4); PHOSPHORUS 2.3 MG/DL (2.3-4.7); POTASSIUM 3.3 MMOL/L (3.6-5.0); SODIUM 144 MMOL/L (135-145)
[2016-07-14] MEDS: KCL 20 MEQ TAB (K-DUR) PO SCH (06:00)
[2016-07-14] MEDS: POTASSIUM CL 10MEQ/50ML IVPB 50 ML IV SCH (06:00)
[2016-07-14] MEDS: MAGNESIUM 1 GM/100 ML IVPB 100 ML IV SCH (06:00)
[2016-07-14] MEDS: VANCOMYCIN 1250 MG/NS 250 ML IVPB IV SCH ×4 (06:17→20:20)
[2016-07-14] MEDS: NS IV 1000 ML 1,000 ML IV SCH ×3 (06:41→16:38)
[2016-07-14] MEDS ORDERED: KCL 20 MEQ TAB (K-DUR) PO NR ×2 (07:28→09:15)
--- NOTE | 2016-07-14 07:40 | Diagnostic Imaging Report ---
Portable upright radiograph of the chest. INDICATION: Shortness of breath. FINDINGS: There is developing right basilar infiltrate or atelectasis. The heart size is normal. There is no effusion or pneumothorax. The mediastinum and jian appear unremarkable. Right internal jugular venous line is seen. IMPRESSION: Developing right basilar infiltrate or atelectasis. Dictated by: Dictated on workstation # [id number]
[2016-07-14] MEDS: RT-ADVAIR HFA 115/21 MCG PER PUFF IH SCH ×2 (08:15→20:33)
[2016-07-14] MEDS ORDERED: NON-FORMULARY MEDICATION 1 EA EA (Fesoterodine Fumarate (Toviaz) 4 MG) PO SCH (09:00)
[2016-07-14] MEDS: ALPRAZolam 0.25 MG (XANAX) TAB PO SCH ×2 (09:45→20:21)
[2016-07-14] MEDS: TOLTERODINE LA 2 MG (DETROL LA) CAP PO SCH (09:46)
[2016-07-14] MEDS: FAMOTIDINE 20 MG (PEPCID) TABLET PO SCH ×2 (09:46→20:20)
[2016-07-14] MEDS: SERTRALINE 50 MG (ZOLOFT) TABLET PO SCH (09:46)
[2016-07-14] MEDS: SIMvastatin 40 MG (ZOCOR) TAB PO SCH (09:46)
--- NOTE | 2016-07-14 12:51 | Progress Note (SOAP) ---
Subjective Subjective/Events-last exam Pt denies complaints. Wants to go home. Date seen by provider: Jul 14, 2016 Time seen by provider: 12:49 Objective Exam Last Set of Vital Signs Vital Signs Date Time Temp Pulse Resp B/P Pulse Ox O2 Delivery O2 Flow Rate FiO2 07/14/16 11:39 99.2 85 14 105/61 95 Nasal Cannula 2.00 Capillary Refill : Less Than 3 Seconds I&O Intake and Output 07/14/16 00:00 Intake Total 4418.5 ml Output Total 2675 ml Balance 1743.5 ml Intake Oral 1856 ml IV Total 2562.5 ml Output Urine Total 2675 ml General: Alert, Oriented X3, Cooperative Skin: Other (erythema to the R breast; bruising noted not R thigh) Psych/Mental Status: Mental Status NL Results/Procedures Lab Laboratory Tests 07/13/16 13:30: Anion Gap 7, BUN/Creatinine Ratio 12, Blood Urea Nitrogen 8, Calcium Level 7.8L , Carbon Dioxide Level 30, Chloride Level 102, Creatinine 0.68, Estimat Glomerular Filtration Rate > 60, Glucose Level 103, Potassium Level 2.7L, Sodium Level 139 07/13/16 17:58: Vancomycin Level Trough 15.0 07/13/16 22:35: Anion Gap 7, BUN/Creatinine Ratio 10, Blood Urea Nitrogen 7, Calcium Level 7.6L , Carbon Dioxide Level 28, Chloride Level 107, Creatinine 0.67, Estimat Glomerular Filtration Rate > 60, Glucose Level 104, Potassium Level 3.4L, Sodium Level 142 07/14/16 04:35: Anion Gap 8, BUN/Creatinine Ratio 9, Blood Urea Nitrogen 6L, Calcium Level 7.5L , Carbon Dioxide Level 26, Chloride Level 110H, Creatinine 0.67, Estimat Glomerular Filtration Rate > 60, Glucose Level 104, Potassium Level 3.3L, Sodium Level 144, Basophils # (Auto) 0.0, Basophils (%) (Auto) 0, Eosinophils # (Auto) 0.2, Eosinophils (%) (Auto) 3, Hematocrit 34L, Hemoglobin 11.0L, Hemoglobin A1c 6.2, Lymphocytes # (Auto) 1.8, Lymphocytes (%) (Auto) 28, Magnesium Level 1.8, Mean Corpuscular Hemoglobin 30, Mean Corpuscular Hemoglobin Concent 33, Mean Corpuscular Volume 91, Mean Platelet Volume 11.1H, Monocytes # (Auto) 0.6, Monocytes (%) (Auto) 10, Neutrophils # (Auto) 3.8, Neutrophils (%) (Auto) 60, Phosphorus Level 2.3, Platelet Count 185, Red Blood Count 3.70L, Red Cell Distribution Width 16.8H, White Blood Count 6.4 Microbiology 07/12/16 Blood Culture - Preliminary, Resulted No growth 07/12/16 MRSA Screen - Final, Complete MRSA not isolated 07/13/16 Gram Stain - Final, Resulted 07/13/16 Wound Culture - Preliminary, Resulted Bacillus Species Radiology Date of Exam: 07/12/16 CHEST 1 VIEW, AP/PA ONLY EXAMINATION: Portable chest. INDICATION: Line placement. COMPARISON: Prior study from earlier the same day. FINDINGS: A new right internal jugular line has been placed and terminates within the distal SVC. There is no pneumothorax. Appearance of the chest is otherwise not significantly changed. There is suggestion that there may be some slight increased prominence of the pulmonary interstitium and mild interstitial edema cannot be completely excluded. There is no alveolar consolidation. There is no effusion. There is no pneumothorax. IMPRESSION: 1. The right internal jugular line has been placed and terminates within the SVC. There is no pneumothorax. 2. There is very subtle prominence of the basilar interstitial markings. Mild interstitial edema cannot be completely excluded. Date of Exam: 07/12/16 CT HEAD/CERVICAL SPINE WO PROCEDURE: CT head and CT cervical spine without contrast. TECHNIQUE: Multiple contiguous axial images were obtained through the brain and cervical spine without the use of intravenous contrast. Sagittal and coronal reformations through the cervical spine were then performed. INDICATION: Fall. FINDINGS: CT HEAD: There is no intracranial hemorrhage, edema, or mass effect. The brain parenchyma and pacheco/white matter differentiation are preserved. There is no hydrocephalus. No extra-axial fluid collection is seen. The calvarium appears grossly unremarkable. There is minimal fluid in the right maxillary sinus. The orbits appear grossly unremarkable. CT CERVICAL SPINE: There is satisfactory alignment of the posterior spinal line. There are preserved vertebral body heights and disc heights. No widening of the predental space. There is satisfactory alignment of the lateral masses of C1 and C2 as well as of the atlantooccipital joints. No fracture is seen. IMPRESSION: CT HEAD: No intracranial hemorrhage. CT CERVICAL SPINE: No fracture is seen. Assessment/Plan Assessment/Plan Admission Dx Altered Mental Status Severe Hypokalemia Left thigh Eschar Right breast Cellulitis Substance Abuse H/o HTN COPD Depression Plan 56 yo F that was brought into ER after being found unresponsive after drug overdose found to be severely hypokalemic Altered Mental Status: Patient is not back to her baseline, likely 2/2 drug overdose -RESOLVED Severe Hypokalemia - Replacing per IV protocol - No ECG changes this AM 2/3 - K 3.3 - continue to replace and monitor Left thigh Eschar - Would care consulted, will likely need surgical debridement - Continue Antibiotics Right breast Cellulitis Substance Abuse - Patient states that she was not trying to hurt herself, offered outpatient substance abuse treatment at [facility] 2/3 - pt states she is not interested in addiction treatment services. H/o HTN - Hold home BP medications at this time because of hypotension COPD - A/A nebs PRN Depression - Continue home medications FEN: Heart healthy diet DVT PPX: lovenox Dispo: Transfer to [facility] medical Diagnosis/Problems: Clinical Quality Measures DVT/VTE Risk/Contraindication: Risk Factor Score Per Nursin RFS Level Per Nursing on Admit: 4+=Very High JACK YUAN DO Jul 14, 2016 12:51
[2016-07-14] MEDS: ENOXAPARIN 40 MG/0.4 ML (LOVENOX) SYR SC SCH (13:19)
[2016-07-14] MEDS: NICOTINE 14 MG (NICODERM) PATCH TD SCH (14:38)
[2016-07-14] MEDS: GABAPENTIN 300 MG (NEURONTIN) CAP PO SCH (20:20)
[2016-07-14] MEDS: rOPINIRole 0.25 MG (REQUIP) TAB PO SCH (20:21)
[2016-07-14] MEDS: MONTELUKAST 10 MG (SINGULAIR) TAB PO SCH (20:21)
[2016-07-15] VITALS: BP 119/71
[2016-07-15] MEDS: NS IV 1000 ML 1,000 ML IV SCH ×2 (02:50→11:00)
[2016-07-15 04:00] VITALS: BP 120/68
[2016-07-15 05:57] LABS: BASOPHILS % (AUTO) 0 % (0-10); EOSINOPHILS # (AUTO) 0.3 10^3/uL (0.0-0.3); EOSINOPHILS % (AUTO) 5 % (0-10); LYMPHOCYTES # (AUTO) 1.8 X 10^3 (1.0-4.0); LYMPHOCYTES % (AUTO) 29 % (12-44); MEAN CORPUSCULAR HEMOGLOBIN 29 PG (25-34); MEAN CORPUSCULAR HGB CONC 32 G/DL (32-36); MEAN CORPUSCULAR VOLUME 92 FL (80-99); MEAN PLATELET VOLUME 11.2 FL (7.4-10.4); MONOCYTES # (AUTO) 0.5 X 10^3 (0.0-1.0); MONOCYTES % (AUTO) 9 % (0-12); NEUTROPHILS # (AUTO) 3.5 X 10^3 (1.8-7.8); NEUTROPHILS % (AUTO) 57 % (42-75); PLATELET COUNT 187 10^3/uL (130-400); RED BLOOD COUNT 3.65 10^6/uL (4.35-5.85); RED CELL DISTRIBUTION WIDTH 16.4 % (10.0-14.5); WHITE BLOOD COUNT 6.1 10^3/uL (4.3-11.0)
[2016-07-15 06:07] LABS: ANISOCYTOSIS SLIGHT; BAND NEUTROPHILS 0 %; BASOPHILS % (MANUAL) 0 %; EOSINOPHILS % (MANUAL) 9 %; LYMPHOCYTES % (MANUAL) 31 %; MICROCYTOSIS SLIGHT; NEUTROPHILS % (MANUAL) 46 %; POLYCHROMASIA SLIGHT; REACTIVE LYMPHOCYTES 7 %; SPHEROCYTES SLIGHT
[2016-07-15 06:25] LABS: ALANINE AMINOTRANSFERASE 13 U/L (0-55); ALBUMIN 2.5 G/DL (3.2-4.5); ANION GAP 7 MMOL/L (5-14); ASPARTATE AMINO TRANSFERASE 13 U/L (5-34); BILIRUBIN,TOTAL 0.3 MG/DL (0.1-1.0); BLOOD UREA NITROGEN 9 MG/DL (7-18); BUN/CREATININE RATIO 14; CALCIUM 7.5 MG/DL (8.5-10.1); CARBON DIOXIDE 25 MMOL/L (21-32); CHLORIDE 110 MMOL/L (98-107); CREATININE SERUM 0.65 MG/DL (0.60-1.30); GFR ESTIMATED > 60; GLUCOSE 93 MG/DL (70-105); MAGNESIUM 1.5 MG/DL (1.8-2.4); POTASSIUM 3.8 MMOL/L (3.6-5.0); SODIUM 142 MMOL/L (135-145); TOTAL PROTEIN 5.3 G/DL (6.4-8.2)
[2016-07-15] MEDS: VANCOMYCIN 1250 MG/NS 250 ML IVPB IV SCH ×2 (06:44)
[2016-07-15] MEDS: RT-ADVAIR HFA 115/21 MCG PER PUFF IH SCH (07:23)
[2016-07-15] MEDS ORDERED: RT-ALBUTEROL SULF 2.5 MG/3 ML PRE-MIX VIAL INH PRN (07:30)
[2016-07-15 08:52] VITALS: BP 133/72
[2016-07-15] MEDS: SERTRALINE 50 MG (ZOLOFT) TABLET PO SCH (08:54)
[2016-07-15] MEDS: TOLTERODINE LA 2 MG (DETROL LA) CAP PO SCH (08:54)
[2016-07-15] MEDS: FAMOTIDINE 20 MG (PEPCID) TABLET PO SCH (08:54)
[2016-07-15] MEDS: ALPRAZolam 0.25 MG (XANAX) TAB PO SCH (08:54)
[2016-07-15] MEDS: NICOTINE 14 MG (NICODERM) PATCH TD SCH (08:54)
[2016-07-15] MEDS: SIMvastatin 40 MG (ZOCOR) TAB PO SCH (08:54)
[2016-07-15] MEDS ORDERED: PATCH REMOVAL TP SCH (08:59)
[2016-07-15] MEDS ORDERED: MAGNESIUM OXIDE (MAG-OX)400 MG TAB PO ONE (10:15)
[2016-07-15] MEDS: ENOXAPARIN 40 MG/0.4 ML (LOVENOX) SYR SC SCH (11:45)
[2016-07-15] MEDS ORDERED: CLIN300C11 PO (12:07)
--- NOTE | 2016-07-15 12:11 | Discharge Instructions ---
Discharge [facility] Discharge Medications New, Converted or Re-Newed RX: Call to Patients Pharmacy New Medications: Clindamycin HCl (Clindamycin HCl) 300 Mg Capsule 300 MG PO QID Days 10 CAP Continued Medications: Albuterol Sulfate (Ventolin Hfa) 18 Gm Hfa.aer.ad 2 PUFF INH TID PRN SHORTNESS OF BREATH INHALER Alprazolam (Alprazolam) 0.25 Mg Tablet 0.25 MG PO BID TAB Budesonide/Formoterol Fumarate (Symbicort 160-4.5 Mcg Inhaler) 10.2 Gm Hfa.aer.ad 2 PUFF INH BID INHALER Cyclobenzaprine HCl (Cyclobenzaprine HCl) 10 Mg Tablet 10 MG PO BID TAB Estradiol (Estradiol Tablet) 0.5 Mg Tablet 0.5 MG PO HS TAB Fesoterodine Fumarate (Toviaz) 4 Mg Tab.sr.24h 4 MG PO DAILY TAB Gabapentin (Gabapentin) 300 Mg Capsule 300 MG PO HS CAP Hydrocodone/Acetaminophen (Hydrocodon -Acetaminophen 5-325) 1 Each Tablet 1-2 TAB PO EVERY 4-6 HOURS PRN PAIN Metoprolol Succinate (Metoprolol Succinate) 25 Mg Tab.er.24h 25 MG PO HS Montelukast Sodium (Montelukast Sodium) 10 Mg Tablet 10 MG PO HS TAB Ranitidine HCl (Ranitidine HCl) 150 Mg Tablet 150 MG PO BID TAB Ropinirole HCl (Ropinirole HCl) 0.5 Mg Tablet 0.5 MG PO HS TAB Sertraline HCl (Sertraline HCl) 25 Mg Tablet 25 MG PO DAILY Simvastatin (Simvastatin) 40 Mg Tablet 40 MG PO DAILY TAB Discontinued Medications: Hydrochlorothiazide (Hydrochlorothiazide) 25 Mg Tablet 25 MG PO HS TAB Nitrofurantoin Monohyd/M-Cryst (Nitrofurantoin [place]-Mcr 100 mg) 100 Mg Capsule 100 MG PO 1700 CAP Patient Instructions Goal/Follow Up Appt: We will call you to get you a follow up appt with Ms Davidson Patient Instructions: I have adjusted your blood pressure medication due to your low potassium, You will need you blood pressure monitored at the clinic Make sure to complete all your antibiotics for the skin infection Discussed the need to stop using Meth, offered our [facility] clinic, She will discuss with Fariha at appt Return to The Hospital For: Unable to tolerate antitiotics Severe pain in wounds Activity & Diet Discharge Diet: Cardiac Diet Activity as Tolerated: Yes Copy Copies To 1: Stuart ROSS HOLLY R MD Jul 15, 2016 12:11
--- NOTE | 2016-07-15 12:12 | Discharge Summary ---
Diagnosis/Chief Complaint Date of Admission Jul 12, 2016 at 18:16 Date of Discharge 07/15/2016 Admission Diagnosis Admission Diagnosis Altered Mental Status Severe Hypokalemia Left thigh Eschar Right breast Cellulitis Substance Abuse H/o HTN COPD Depression Hypomagnesium Discharge Diagnosis See above Chief Complaint/HPI Chief Complaint/HPI 56 yo F that was admitted from ER brought in by ambulance because she was unresponsive after injecting Meth. This AM patient is awake and alert. States that she was not trying to hurt herself. States that she was very depressed and that is why she went and got Meth. States that she only uses Meth about once every other week. She says that she has been under alot of stress. She is on anti depressants but says that they makes her have hallucinations so she stopped taking them. She did not tell her PCP Stuart this so that they could adjust her medication. Redness and pain to Right breast. This is an area that she has been using to shoot the meth. She has a large black eschar on her Left thigh that she states has been present for a couple months. She states that she has not used this area for her drug use. Upon arrival she was found to be profoundly hypokalemic without ECG changes. She was replaced in ER and placed on protocol overnight. Discharge Summary-Simple/Stand Consultations None Discharge Physical Examination Allergies: Coded Allergies: codeine (Unverified Allergy, Severe, ANAPHYLAXIS BUT PT CAN TAKE MORPHINE , 11/11/14) sulfamethoxazole (Unverified Allergy, Severe, 03/04/14) "STROKE-LIKE" SYMPTOMS trimethoprim (Unverified Allergy, Severe, 03/04/14) "STROKE-LIKE" SYMPTOMS venom-honey bee (Unverified Allergy, Unknown, 09/16/14) Vitals & I&Os Vital Sign - Last 12Hours Date Time Temp Pulse Resp B/P Pulse Ox O2 Delivery O2 Flow Rate FiO2 07/15/16 08:52 98.0 85 22 133/72 94 Nasal Cannula 2.00 Intake and Output 07/15/16 00:00 Intake Total 1162.5 ml Output Total 1350 ml Balance -187.5 ml General Appearance: Alert, Oriented X3, Cooperative, No Acute Distress HEENT: Atraumatic, PERRLA, EOMI, Mucous Memb Moist/Bier Respiratory: Clear to Auscultation, Normal Air Movement Cardiovascular: Regular Rate, Normal S1, Normal S2, No Murmurs Abdominal: Normal Bowel Sounds, Soft, No Tenderness, No Masses Extremities: No Clubbing, No Edema, No Tenderness/Swelling Skin: Other (Left thigh wound: debrided during visit) Neuro: Normal Gait, Normal Speech, Strength at 5/5 X4 Ext, Sensation Intact, Cranial Nerves 3-12 NL Psych/Mental Status: Mental Status NL, Mood NL Hospital Course See final discharge diagnosis. Pending Labs None Radiology Reviewed Date of Exam: 07/12/16 CHEST 1 VIEW, AP/PA ONLY EXAMINATION: Portable chest. INDICATION: Line placement. COMPARISON: Prior study from earlier the same day. FINDINGS: A new right internal jugular line has been placed and terminates within the distal SVC. There is no pneumothorax. Appearance of the chest is otherwise not significantly changed. There is suggestion that there may be some slight increased prominence of the pulmonary interstitium and mild interstitial edema cannot be completely excluded. There is no alveolar consolidation. There is no effusion. There is no pneumothorax. IMPRESSION: 1. The right internal jugular line has been placed and terminates within the SVC. There is no pneumothorax. 2. There is very subtle prominence of the basilar interstitial markings. Mild interstitial edema cannot be completely excluded. Date of Exam: 07/12/16 CT HEAD/CERVICAL SPINE WO PROCEDURE: CT head and CT cervical spine without contrast. TECHNIQUE: Multiple contiguous axial images were obtained through the brain and cervical spine without the use of intravenous contrast. Sagittal and coronal reformations through the cervical spine were then performed. INDICATION: Fall. FINDINGS: CT HEAD: There is no intracranial hemorrhage, edema, or mass effect. The brain parenchyma and pacheco/white matter differentiation are preserved. There is no hydrocephalus. No extra-axial fluid collection is seen. The calvarium appears grossly unremarkable. There is minimal fluid in the right maxillary sinus. The orbits appear grossly unremarkable. CT CERVICAL SPINE: There is satisfactory alignment of the posterior spinal line. There are preserved vertebral body heights and disc heights. No widening of the predental space. There is satisfactory alignment of the lateral masses of C1 and C2 as well as of the atlantooccipital joints. No fracture is seen. IMPRESSION: CT HEAD: No intracranial hemorrhage. CT CERVICAL SPINE: No fracture is seen. Discussion & Recommendations 6 yo F that was brought into ER after being found unresponsive after drug overdose found to be severely hypokalemic Altered Mental Status: Patient is not back to her baseline, likely 2/2 drug overdose: resolved at time of discharge Severe Hypokalemia: replaced, no ECG changes Left thigh Eschar: wound care consulted and debrided wound, need close outpatient follow up - d/c on PO antibiotics Right breast Cellulitis: Stable, needs close follow up Substance Abuse - Patient states that she was not trying to hurt herself, offered outpatient substance abuse treatment at [facility] 2/3 - pt states she is not interested in addiction treatment services, states that his episode scared her and that she was not going to use anymore H/o HTN: Controlled at discharge COPD - A/A nebs PRN Depression - Continue home medications Follow up: - needs close follow up for substance abuse - needs close wound follow up for healing progression Discharge Condition at discharge stable Instructions to patient/family Please see electonic discharge instructions given to patient. Discharge Medications Reviewed and agree with Discharge Medication list on patient's Discharge Instruction sheet Clinical Quality Measures DVT/VTE Risk/Contraindication: Risk Factor Score Per Nursin RFS Level Per Nursing on Admit: 4+=Very High Copy Copies To 1: [facility], YAMILET Malloy MD Jul 15, 2016 12:12
[2016-07-15 12:30] VITALS: BP 125/76
[2016-07-15 13:35] VITALS: BP 125/76
[2016-07-15] MEDS ORDERED: RT-ALBUTEROL SULF 2.5 MG/3 ML PRE-MIX VIAL INH SCH (14:00)
[2016-07-15] MEDS ORDERED: TROUGH ORDER-PHARMACY XX NR (18:00)
== END 2016-07-15 13:40 | disposition home or self-care (01) | DRG 918 ==
LOC: EDUNIT# 14:56 → ER 14:57 → ICU 18:16 → 4TH 07-14 19:41
PROVIDERS: ADMIT Family Medicine; ATTEND Family Medicine
PROC: 02HV33Z Insertion of Infusion Device into Superior Vena Cava, Percutaneous Approach (ICD-10-PCS; principal; 2016-07-12)
DX: T43.621A Poisoning by amphetamines, accidental (unintentional), initial encounter (principal); F15.10 Other stimulant abuse, uncomplicated; E87.6 Hypokalemia; L97.129 Non-pressure chronic ulcer of left thigh with unspecified severity; L03.116 Cellulitis of left lower limb; N61.0 Mastitis without abscess; F32.9 Major depressive disorder, single episode, unspecified; J44.9 Chronic obstructive pulmonary disease, unspecified; J45.909 Unspecified asthma, uncomplicated; M54.2 Cervicalgia; F17.210 Nicotine dependence, cigarettes, uncomplicated; R51 Headache; I10 Essential (primary) hypertension; N31.9 Neuromuscular dysfunction of bladder, unspecified; K21.9 Gastro-esophageal reflux disease without esophagitis; M19.91 Primary osteoarthritis, unspecified site; M54.9 Dorsalgia, unspecified; Z91.81 History of falling; F41.9 Anxiety disorder, unspecified
CPT/HCPCS: 36415; 36556; 51702; 70450; 71010; 72125; 80048; 80053; 80164; 80202; 80306; 80320; 80329; 83036; 83605; 83735; 84100; 84132; 84443; 85007; 85025; 85027; 87040; 87070; 87081; 87205; 93005; 93041; 94640; 94760; 96361; 96365; 96367

== ENCOUNTER → 2016-07-29 | Outpatient (CLI) | payer MEDICARE, MEDICAID ==
[~2016-07-29] MED LIST changes: +CLIN300C11 PO; +HYDR-3812 PO; +HYDR25TA4 PO; +METO-270 PO
--- OUTSIDE RECORDS SUMMARY | 2016-07-29 07:47 | XMS REPORT | Continuity of Care Document ---
Author Author [facility] Organization [facility] Address Unknown Phone Unavailable Care Team Providers Care Street Flusher Driver Name Role Phone Winston De Santiago PCP [phone] Source Comments Some departments are not documenting in the electronic medical record. If you do not see the information that you expected, contact Release of Information in the Health Information Management department at [phone] for further assistance in locating additional records.[facility] Active Allergies and Adverse Reactions Allergen Noted [...] Taken Blood Pressure 128/75 04/13/2015 12:05 PM TOWING PILOT Pulse 81 04/13/2015 12:05 PM TOWING PILOT Temperature 36.5 C (97.7 F) 04/13/2015 12:05 PM TOWING PILOT Respiratory Rate 16 03/22/2015 3:32 PM CDT Height 1.626 m (5' 4") 04/13/2015 9:11 AM TOWING PILOT Weight 115 kg (253 lb 8.5 oz) 04/13/2015 9:11 AM TOWING PILOT Body Mass Index 43.5 04/13/2015 9:11 AM TOWING PILOT Oxygen Saturation 96% 04/13/2015 12:05 PM TOWING PILOT Plan of Care Health Maintenance Due Date Last Done Comments Physical (Comprehensive) 1969 Exam Pertussis Vaccine 1973 Tetanus Vaccine 1979 Cervical Cancer Screening 1983 Breast Cancer Screening 2002 Colorectal Cancer 2012 Screening Influenza Vaccine 02/10/2016 Results from Last 3 Months Not on file
--- NOTE | 2016-07-29 11:07 | Diagnostic Imaging Report ---
PROCEDURE: MRI right joint upper extremity without contrast. Technique: Multiplanar, multisequence MR imaging of the right shoulder was performed without contrast. Comparison: None available. Indication: Right shoulder pain. Prior shoulder arthroscopy approximately one year ago. Findings: Rotator cuff: No high-grade partial or full-thickness rotator cuff tear. There is a focal linear low-grade, partial thickness interstitial tear in the anterior supraspinatus fibers. There is mild tendinopathy of the supraspinatus as well. No rotator cuff muscle atrophy. Glenoid labrum: By non-arthrogram imaging, the glenoid labrum is intact. Long head of biceps: Long head of biceps is normal in position and intracapsular segment is diminutive in size, likely due to high-grade partial tearing. Bones and cartilage: No fracture or concerning marrow replacement. Patchy red marrow signal seen around the humeral metaphysis. Prior distal clavicular resection. There is a small amount of edema-like signal within the operative bed. Soft tissues: No glenohumeral joint effusion. No MRI findings to suggest adhesive capsulitis. Minimal inflammation in the subacromial subdeltoid bursa suggests minimal bursitis. IMPRESSION: 1. No high-grade partial or full-thickness rotator cuff tear. Supraspinatus tendinopathy with low-grade partial-thickness interstitial tear of the anterior insertional fibers. 2. High-grade partial versus complete tear of the intracapsular segment of the long head of the biceps. 3. Prior distal clavicular resection. Dictated by: Dictated on workstation # [id number]
== END ==
LOC: RAD 07:42
PROVIDERS: ATTEND Orthopaedic Surgery
DX: M75.121 Complete rotator cuff tear or rupture of right shoulder, not specified as traumatic (principal)
CPT/HCPCS: 73221

== ENCOUNTER 2016-09-08 08:23 | Outpatient (RCR) | payer MEDICARE, MEDICAID ==
--- OUTSIDE RECORDS SUMMARY | 2016-08-01 13:17 | XMS REPORT | Continuity of Care Document ---
Author Author [facility] Organization [facility] Address Unknown Phone Unavailable Care Team Providers Care Master At Arms Name Role Phone Winston De Santiago PCP [phone] Source Comments Some departments are not documenting in the electronic medical record. If you do not see the information that you expected, contact Release of Information in the Health Information Management department at [phone] for further assistance in locating additional records.[facility] Active Allergies and Adverse Reactions Allergen Noted [...] Taken Blood Pressure 128/75 04/13/2015 12:05 PM RAILROAD AUDITOR Pulse 81 04/13/2015 12:05 PM RAILROAD AUDITOR Temperature 36.5 C (97.7 F) 04/13/2015 12:05 PM RAILROAD AUDITOR Respiratory Rate 16 03/22/2015 3:32 PM CDT Height 1.626 m (5' 4") 04/13/2015 9:11 AM RAILROAD AUDITOR Weight 115 kg (253 lb 8.5 oz) 04/13/2015 9:11 AM RAILROAD AUDITOR Body Mass Index 43.5 04/13/2015 9:11 AM RAILROAD AUDITOR Oxygen Saturation 96% 04/13/2015 12:05 PM RAILROAD AUDITOR Plan of Care Health Maintenance Due Date Last Done Comments Physical (Comprehensive) 1967 Exam Pertussis Vaccine 1973 Tetanus Vaccine 1979 Cervical Cancer Screening 1983 Breast Cancer Screening 2002 Colorectal Cancer 2012 Screening Influenza Vaccine 02/10/2016 Results from Last 3 Months Not on file
== END 2016-09-08 14:54 | disposition home or self-care (01) ==
LOC: WOUNDCARE 08:23
PROVIDERS: ATTEND Surgery
DX: L97.122 Non-pressure chronic ulcer of left thigh with fat layer exposed (principal); L03.818 Cellulitis of other sites; F15.10 Other stimulant abuse, uncomplicated
CPT/HCPCS: 11042; 87070; 87075; 87205; 99212

== ENCOUNTER → 2016-10-25 | Outpatient (CLI) | payer MEDICARE, MEDICAID ==
[2016-10-25 10:29] LABS: ANION GAP 9 MMOL/L (5-14); BLOOD UREA NITROGEN 14 MG/DL (7-18); BUN/CREATININE RATIO 19; CARBON DIOXIDE 21 MMOL/L (21-32); CHLORIDE 107 MMOL/L (98-107); CREATININE SERUM 0.74 MG/DL (0.60-1.30); GFR ESTIMATED > 60; GLUCOSE 113 MG/DL (70-105); SODIUM 137 MMOL/L (135-145)
== END ==
LOC: LAB 09:50
PROVIDERS: ATTEND Family Medicine
DX: Z51.81 Encounter for therapeutic drug level monitoring (principal); Z79.899 Other long term (current) drug therapy
CPT/HCPCS: 36415; 80048

== ENCOUNTER → 2017-05-01 | Outpatient (CLI) | payer MEDICARE, MEDICAID ==
[~2017-05-01] MED LIST changes: -METO-270 PO; +METO-387 PO; +QUIN10TA14 PO; -QUIN10TA23 PO
[2017-05-01 08:49] LABS: MEAN PLATELET VOLUME 11.5 FL (7.4-10.4); RED BLOOD COUNT 4.7 10^6/uL (4.35-5.85); RED CELL DISTRIBUTION WIDTH 13.3 % (10.0-14.5); WHITE BLOOD COUNT 4.4 10^3/uL (4.3-11.0)
[2017-05-01 09:11] LABS: ALANINE AMINOTRANSFERASE 15 U/L (0-55); ALBUMIN 3.6 GM/DL (3.2-4.5); ANION GAP 11 MMOL/L (5-14); ASPARTATE AMINO TRANSFERASE 17 U/L (5-34); BILIRUBIN,TOTAL 0.3 MG/DL (0.1-1.0); BLOOD UREA NITROGEN 27 MG/DL (7-18); BUN/CREATININE RATIO 36; CALCIUM 8.9 MG/DL (8.5-10.1); CARBON DIOXIDE 20 MMOL/L (21-32); CHLORIDE 110 MMOL/L (98-107); CREATININE SERUM 0.75 MG/DL (0.60-1.30); GFR ESTIMATED > 60; GLUCOSE 94 MG/DL (70-105); POTASSIUM 4.1 MMOL/L (3.6-5.0); SODIUM 141 MMOL/L (135-145); TOTAL PROTEIN 6.7 GM/DL (6.4-8.2)
== END ==
LOC: LAB 08:15
PROVIDERS: ATTEND Orthopaedic Surgery
DX: M25.811 Other specified joint disorders, right shoulder (principal)
CPT/HCPCS: 36415; 80053; 85027

== ENCOUNTER → 2017-05-08 | Outpatient (CLI) | payer MEDICARE, MEDICAID ==
--- NOTE | 2017-05-09 18:32 | Diagnostic Imaging Report ---
Bilateral screening mammogram 2D views with tomosynthesis The current study was also evaluated with a Computer Aided Detection (CAD) system. Indication: Screening. No current complaints stated on the questionnaire. COMPARISON: 04/03/2016 FINDINGS: The breasts are composed of scattered fibroglandular densities. There are scattered benign-appearing calcifications. Allowing for technique and positional differences, no suspicious change is seen. IMPRESSION: No significant change. ACR BI-RADS Category 2: Benign findings. Result letter will be mailed to the patient. Note: At least 10% of breast cancer is not imaged by mammography. Dictated by: Dictated on workstation # [id number]
== END ==
LOC: RAD 09:13
PROVIDERS: ATTEND Family Medicine
DX: Z12.31 Encounter for screening mammogram for malignant neoplasm of breast (principal)
CPT/HCPCS: 77067

== ENCOUNTER → 2017-05-10 | Outpatient (CLI) | payer MEDICARE, MEDICAID ==
[~2017-05-10] MED LIST changes: +CATHETER FLUSH 10 ML SYR IV PRN; +REGADENOSON 0.4 MG/5 ML SYR (LEXISCAN) IV ONE
[2017-05-10 08:41] VITALS: BP 138/80
== END ==
LOC: CARD 07:08
PROVIDERS: ATTEND Internal Medicine Cardiovascular Disease
DX: I10 Essential (primary) hypertension (principal); J43.8 Other emphysema; E78.4 Other hyperlipidemia; R06.02 Shortness of breath; Z72.0 Tobacco use
CPT/HCPCS: 78452; 93017

== ENCOUNTER → 2017-05-21 | Outpatient (CLI) | payer MEDICARE, MEDICAID ==
[~2017-05-21] MED LIST changes: -CATHETER FLUSH 10 ML SYR IV PRN; -REGADENOSON 0.4 MG/5 ML SYR (LEXISCAN) IV ONE
== END ==
LOC: WOUNDCARE 08:43
PROVIDERS: ATTEND Surgery
DX: L97.422 Non-pressure chronic ulcer of left heel and midfoot with fat layer exposed (principal); T65.222D Toxic effect of tobacco cigarettes, intentional self-harm, subsequent encounter
CPT/HCPCS: 99214

== ENCOUNTER → 2017-05-28 | Outpatient (CLI) | payer MEDICARE, MEDICAID | LOC: WOUNDCARE 10:12 | PROVIDERS: ATTEND Surgery | DX: L97.422 Non-pressure chronic ulcer of left heel and midfoot with fat layer exposed (principal); T65.222D Toxic effect of tobacco cigarettes, intentional self-harm, subsequent encounter | CPT/HCPCS: 99212 ==

== ENCOUNTER 2017-07-19 16:25 | Emergency (ER) | payer MEDICARE, MEDICAID ==
[~2017-07-19] VITALS: Ht 160 cm; Wt 106.0 kg
[~2017-07-19 16:25] MED LIST changes: -HYDR-3812 PO
[2017-07-19] MEDS ORDERED: FAMOTIDINE 20 MG (PEPCID) TABLET PO STA (18:41)
[2017-07-19] MEDS ORDERED: ONDANSETRON 4 MG/2 ML (SDV) Z0FRAN IVP ONE (18:45)
[2017-07-19] MEDS ORDERED: RT-ALBUTEROL/IPRATROPIUM 3 ML (DUONEB) VIAL INH ONE (18:45)
[2017-07-19] MEDS ORDERED: LIDOCAINE 2% VISCOUS 15 ML UDC PO ONE (18:45)
[2017-07-19] MEDS ORDERED: ANTACID SUSP 30 ML UDC (MYLANTA) PO ONE (18:45)
--- NOTE | 2017-07-19 18:54 | ED General ---
General Chief Complaint: Cough/Cold/Flu Symptoms Stated Complaint: VOMITING, CANT EAT Nursing Triage Note: PT STATES SHE'S BEEN COUGHING "GREEN" STUFF. VOMITS WHEN SHE EATS, C/O EPIGASTRIC PAIN, BURNING SENSATION. HASN'T BEEN ABLE TO EAT BECAUSE OF THE PAIN. ALSO C/O WEAKNESS, NOT WANTING TO GET OUT OF BED. Nursing Sepsis Screen: No Definite Risk Source of Information: Patient Exam Limitations: No Limitations History of Present Illness Date Seen by Provider: Jul 19, 2017 Time Seen by Provider: 18:30 Initial Comments This 57-year-old woman presents to the emergency room with complaints of epigastric pain with eating, cough, and wheezing. Symptoms have been present for 2 days. Patient does have COPD and uses nebulizer treatments at home. She used one treatment earlier today that did help. She also has nocturnal hypoxia from sleep apnea and uses O2 while sleeping. She is a smoker of about one half pack per day. She denies any nausea, vomiting, or diarrhea. She has been afebrile. Allergies and Home Medications Allergies Coded Allergies: codeine (Unverified Allergy, Severe, ANAPHYLAXIS BUT PT CAN TAKE MORPHINE , 11/11/14) sulfamethoxazole (Unverified Allergy, Severe, 03/04/14) "STROKE-LIKE" SYMPTOMS trimethoprim (Unverified Allergy, Severe, 03/04/14) "STROKE-LIKE" SYMPTOMS venom-honey bee (Unverified Allergy, Unknown, 09/16/14) Home Medications Albuterol Sulfate 18 Gm Hfa.aer.ad, 2 PUFF INH TID PRN for SHORTNESS OF BREATH, (Reported) Alprazolam 0.25 Mg Tablet, 0.25 MG PO BID, (Reported) Budesonide/Formoterol Fumarate 10.2 Gm Hfa.aer.ad, 2 PUFF INH BID, (Reported) Clindamycin HCl 300 Mg Capsule, 300 MG PO QID for 10 Days Prescribed by: YAMILET SEGAL on 07/15/16 1207 Cyclobenzaprine HCl 10 Mg Tablet, 10 MG PO BID, (Reported) Estradiol 0.5 Mg Tablet, 0.5 MG PO HS, (Reported) Fesoterodine Fumarate 4 Mg Tab.sr.24h, 4 MG PO DAILY, (Reported) Gabapentin 300 Mg Capsule, 300 MG PO HS, (Reported) Hydrocodone Bit/Acetaminophen 1 Each Tablet, 1-2 TAB PO EVERY 4-6 HOURS PRN for PAIN, (Reported) Metoprolol Succinate 25 Mg Tab.er.24h, 25 MG PO HS, (Reported) Montelukast Sodium 10 Mg Tablet, 10 MG PO HS, (Reported) Omeprazole 20 Mg Tablet.dr, 20 MG PO BID, #60 Prescribed by: GERMAN VALDES on 07/19/172045 Ondansetron 4 Mg Tab.rapdis, 4 MG SL Q4H PRN for NAUSEA/VOMITING-1ST LINE, #10 Prescribed by: GERMAN VALDES on 07/19/172046 Ranitidine HCl 150 Mg Tablet, 150 MG PO BID, (Reported) Ropinirole HCl 0.5 Mg Tablet, 0.5 MG PO HS, (Reported) Sertraline HCl 25 Mg Tablet, 25 MG PO DAILY, (Reported) Simvastatin 40 Mg Tablet, 40 MG PO DAILY, (Reported) Constitutional: no symptoms reported EENTM: no symptoms reported Respiratory: see HPI Cardiovascular: no symptoms reported Gastrointestinal: see HPI Genitourinary: no symptoms reported : No Musculoskeletal: no symptoms reported Skin: no symptoms reported Psychiatric/Neurological: No Symptoms Reported Hematologic/Lymphatic: No Symptoms Reported Past Usnknat-Ekkjlb-Ycfpyp Hx Patient Social History Alcohol Use: Denies Use Recreational Drug Use: No Drug of Choice: meth Smoking Status: Current Everyday Smoker Type Used: Cigarettes Recent Foreign Travel: No Contact w/Someone Who Travel: No Recent Infectious Disease Expo: No Recent Hopitalizations: No Immunizations Up To Date Tetanus Booster (TDap): Unknown Date of Pneumonia Vaccine: Feb 11, 2012 Date of Influenza Vaccine: Mar 11, 2017 Seasonal Allergies Seasonal Allergies: No Surgeries History of Surgeries: Yes (RIGHT TKR, LEFT KNEE SCOPE, HEART CATH, LEFT SHOULDER SCOPE, BILAT CTR) Surgeries: Hysterectomy, Orthopedic Respiratory History of Respiratory Disorde: Yes Respiratory Disorders: Asthma, Sleep Apnea (with nocturnal hypoxia), COPD Cardiovascular History of Cardiac Disorders: Yes (negative heart catheter 2013, negative stress test 2016) Cardiac Disorders: High Cholesterol, Hypertension Neurological History of Neurological Disord: Yes Reproductive System Hx Reproductive Disorders: No (HYTERECTOMY) Sexually Transmitted Disease: No HIV/AIDS: No Female Reproductive Disorders: Denies MANAGEMENT CONSULTING History: Hysterectomy Genitourinary History of Genitourinary Disor: Yes Genitourinary Disorders: Bladder Infection, Neurogenic Bladder Gastrointestinal History of Gastrointestinal Di: Yes Gastrointestinal Disorders: Gastroesophageal Reflux Musculoskeletal History of Musculoskeletal Dis: Yes (BACK PROBLEMS) Musculoskeletal Disorders: Degenerate Disk Disease, Arthritis, Chronic Back Pain Endocrine History of Endocrine Disorders: No HEENT History of HEENT Disorders: Yes HEENT Disorders: Cataract Loss of Vision: Denies Hearing Impairment: Denies Cancer History of Cancer: No Psychosocial History of Psychiatric Problem: Yes Behavioral Health Disorders: Anxiety Integumentary History of Skin or Integumenta: Yes Skin/Integumentary Disorders: Psoriasis Blood Transfusions History of Blood Disorders: No Adverse Reaction to a Blood Tr: No (N/A) Family Medical History Significant Family History: No Pertinent Family Hx Family Medial History: Patient reports no known family medical history. Physical Exam Vital Signs Vital Signs - First Documented 07/19/17 16:59 Temp 98.3 Pulse 87 Resp 20 B/P (MAP) 119/64 (82) Pulse Ox 97 O2 Delivery Room Air Capillary Refill : Less Than 3 Seconds General Appearance: No Apparent Distress, WD/WN, Obese HEENT: PERRL/EOMI, Normal ENT Inspection, Pharynx Normal Neck: Normal Inspection Respiratory: No Accessory Muscle Use, No Respiratory Distress, No Crackles, Wheezing Cardiovascular: Regular Rate, Rhythm, No Edema, No Murmur, Normal Peripheral Pulses Gastrointestinal: Normal Bowel Sounds, Soft, Tenderness (epigastrium and left upper quadrant) Extremity: Normal Inspection, No Pedal Edema Neurologic/Psychiatric: Alert, Oriented x3, No Motor/Sensory Deficits, Normal Mood/Affect, professor of nursing II-XII Norm as Tested Skin: Normal Color, Warm/Dry Progress/Results/Core Measures Suspected Sepsis Recent Fever Within 48 Hours: Yes Infection Criteria Present: Suspected New Infection New/Unexplained Altered Menta: No Sepsis Screen: No Definite Risk Sepsis Diagnosis: SIRS Temperature:98.3 Pulse: 87 Respiratory Rate: 20 Laboratory Tests 07/19/17 19:00: White Blood Count 7.2 Blood Pressure 119 /64 Mean: 82 Laboratory Tests 07/19/17 19:00: Creatinine 0.81, Platelet Count 150, Total Bilirubin 0.3 Results/Orders Lab Results Laboratory Tests Test 07/19/17 19:00 Range/Units White Blood Count 7.2 4.3-11.0 10^3/uL Red Blood Count 4.46 4.35-5.85 10^6/uL Hemoglobin 13.5 11.5-16.0 G/DL Hematocrit 40 35-52 % Mean Corpuscular Volume 89 80-99 FL Mean Corpuscular Hemoglobin 30 25-34 PG Mean Corpuscular Hemoglobin Concent 34 32-36 G/DL Red Cell Distribution Width 13.5 10.0-14.5 % Platelet Count 150 130-400 10^3/uL Mean Platelet Volume 11.0 H 7.4-10.4 FL Neutrophils (%) (Auto) 48 42-75 % Lymphocytes (%) (Auto) 34 12-44 % Monocytes (%) (Auto) 11 0-12 % Eosinophils (%) (Auto) 8 0-10 % Basophils (%) (Auto) 0 0-10 % Neutrophils # (Auto) 3.5 1.8-7.8 X 10^3 Lymphocytes # (Auto) 2.4 1.0-4.0 X 10^3 Monocytes # (Auto) 0.8 0.0-1.0 X 10^3 Eosinophils # (Auto) 0.5 H 0.0-0.3 10^3/uL Basophils # (Auto) 0.0 0.0-0.1 10^3/uL Sodium Level 142 135-145 MMOL/L Potassium Level 4.3 3.6-5.0 MMOL/L Chloride Level 107 98-107 MMOL/L Carbon Dioxide Level 25 21-32 MMOL/L Anion Gap 10 5-14 MMOL/L Blood Urea Nitrogen 20 H 7-18 MG/DL Creatinine 0.81 0.60-1.30 MG/DL Estimat Glomerular Filtration Rate > 60 BUN/Creatinine Ratio 25 Glucose Level 96 70-105 MG/DL Calcium Level 8.9 8.5-10.1 MG/DL Total Bilirubin 0.3 0.1-1.0 MG/DL Aspartate Amino Transf (AST/SGOT) 18 5-34 U/L Alanine Aminotransferase (ALT/SGPT) 16 0-55 U/L Alkaline Phosphatase 70 40-136 U/L Total Protein 6.9 6.4-8.2 GM/DL Albumin 3.8 3.2-4.5 GM/DL Lipase 21 8-78 U/L Micro Results My Orders Orders - GERMAN HENDERSON MD Cbc With Automated Diff (07/19/17 18:41) Comprehensive Metabolic Panel (07/19/17 18:41) Lipase (2/8/18 18:41) Albuterol/Ipra Inhalation Soln (Duoneb I (07/19/17 18:45) Chest Pa/Lat (2 View) (07/19/17 18:41) Saline Lock/Iv-Start (07/19/17 18:41) Svn Sm Volume Nebulizer Rt-Rfs (07/19/17 18:41) Ondansetron Injection (Zofran Injectio (07/19/17 18:45) Lidocaine 2% Viscous 15 Ml (Xylocaine Vi (07/19/17 18:45) Famotidine Tablet (Pepcid Tablet) (07/19/17 18:41) Antacid Suspension (Mylanta Suspension (07/19/17 18:45) Methylprednisolone Sod Succ (Solu-Medrol (07/19/17 20:45) Iv Push Channel Cementer Outsole Machine Ed (07/19/17 ) Medications Given in ED Vital Signs/I&O Capillary Refill : Less Than 3 Seconds Blood Pressure Mean: 82 Progress Note #1: Time: 18:54 Progress Note She was seen and examined. Labs are pending. Epigastric pain will be treated with Pepcid, Zofran, and GI cocktail. Wheezing will be treated with a DuoNeb treatment. Influenza screen was negative. Progress Note #2: Progress Note Abdominal/GI symptoms resolved with GI cocktail, Pepcid, and Zofran. DuoNeb treatment helped the wheezing. Solu-Medrol was administered for COPD exacerbation. See discharge instructions. Diagnostic Imaging Diagonstic Imaging: Xray Plain Films/CT/US/NM/MRI: chest Comments Chest x-ray viewed by me and report reviewed. See report below: NAME: ELLIOT GREENBERG [facility] REC#: [id number] PT STATUS: REG ER : 1960 PHYSICIAN: GERMAN HENDERSON MD ADMIT DATE: 07/19/17/ER Draft Date of Exam:07/19/17 CHEST PA/LAT (2 VIEW) INDICATION: Cough for 2 days. PA and lateral views of the chest are obtained. Comparison is made study of 07/14/2016. FINDINGS: Heart size and pulmonary vascularity are within normal limits, and the lungs are clear, bilaterally. IMPRESSION: Unremarkable chest. Dictated on workstation # [id number] Dict: 07/19/171949 Trans: 07/19/171950 [id number] Interpreted by: CRISSY WHITNEY MD Departure Impression Impression: Primary Impression: COPD exacerbation Additional Impression: Epigastric pain Disposition: HOME, SELF-CARE Condition: Improved Departure-Patient Inst. Decision time for Depature: 20:40 Referrals: MEDARDO DUFFY MD (PCP/Family) Primary Care Physician Patient Instructions: Acute Abdomen (Belly Pain), Chronic Obstructive Pulmonary Disease (COPD), Including Emphysema Add. Discharge Instructions: Reduce smoking as much as possible and work toward quitting. You may substitute nicotine with patches, gum, or lozenges. However, do not replace with inhaled nicotine products. Take omeprazole twice daily as prescribed. Avoid the following: Eating close to bedtime, eating large meals, tobacco products, alcohol, tomato products, citrus fruits and juices, chocolate, caffeine, carbonation, mints, spicy foods, fatty or greasy foods, or anything else you know irritates your stomach. Return to emergency room if symptoms worsen. Please follow-up with your primary care provider soon as possible. Use your nebulizer treatments up to once every 4 hours at home as needed for shortness of air and wheezing. All discharge instructions reviewed with patient and/or family. Voiced understanding. Scripts Ondansetron (Zofran Odt) 4 Mg Tab.rapdis 4 MG SL Q4H Y for NAUSEA/VOMITING-1ST LINE, #10 TAB Prov: GERMAN HENDERSON MD 07/19/17 Omeprazole (Omeprazole) 20 Mg Tablet. 20 MG PO BID, #60 TAB Prov: GERMAN HENDERSON MD 07/19/17 Copy Copies To 1: MEDARDO DUFFY MD, JOSHUA T MD Jul 19, 2017 18:54
[2017-07-19 19:10] LABS: BASOPHILS % (AUTO) 0 % (0-10); EOSINOPHILS # (AUTO) 0.5 10^3/uL (0.0-0.3); EOSINOPHILS % (AUTO) 8 % (0-10); HEMATOCRIT 40 % (35-52); HEMOGLOBIN 13.5 G/DL (11.5-16.0); LYMPHOCYTES # (AUTO) 2.4 X 10^3 (1.0-4.0); LYMPHOCYTES % (AUTO) 34 % (12-44); MEAN CORPUSCULAR HEMOGLOBIN 30 PG (25-34); MEAN CORPUSCULAR HGB CONC 34 G/DL (32-36); MEAN CORPUSCULAR VOLUME 89 FL (80-99); MONOCYTES # (AUTO) 0.8 X 10^3 (0.0-1.0); MONOCYTES % (AUTO) 11 % (0-12); NEUTROPHILS # (AUTO) 3.5 X 10^3 (1.8-7.8); NEUTROPHILS % (AUTO) 48 % (42-75); PLATELET COUNT 150 10^3/uL (130-400); RED BLOOD COUNT 4.46 10^6/uL (4.35-5.85); RED CELL DISTRIBUTION WIDTH 13.5 % (10.0-14.5); WHITE BLOOD COUNT 7.2 10^3/uL (4.3-11.0)
[2017-07-19 19:30] LABS: ALANINE AMINOTRANSFERASE 16 U/L (0-55); ALBUMIN 3.8 GM/DL (3.2-4.5); ALKALINE PHOSPHATASE 70 U/L (40-136); BILIRUBIN,TOTAL 0.3 MG/DL (0.1-1.0); BUN/CREATININE RATIO 25; CALCIUM 8.9 MG/DL (8.5-10.1); CARBON DIOXIDE 25 MMOL/L (21-32); CHLORIDE 107 MMOL/L (98-107); CREATININE SERUM 0.81 MG/DL (0.60-1.30); GFR ESTIMATED > 60; GLUCOSE 96 MG/DL (70-105); LIPASE 21 U/L (8-78); POTASSIUM 4.3 MMOL/L (3.6-5.0); SODIUM 142 MMOL/L (135-145); TOTAL PROTEIN 6.9 GM/DL (6.4-8.2)
--- NOTE | 2017-07-19 19:51 | Diagnostic Imaging Report ---
INDICATION: Cough for 2 days. PA and lateral views of the chest are obtained. Comparison is made study of 07/14/2016. FINDINGS: Heart size and pulmonary vascularity are within normal limits, and the lungs are clear, bilaterally. IMPRESSION: Unremarkable chest. Dictated by: Dictated on workstation # [id number]
[2017-07-19] MEDS ORDERED: methylPREDNISolone 125 MG (Solu-MEDROL) VIAL IVP ONE (20:45)
[2017-07-19] MEDS ORDERED: OMEP20TA7 PO (20:46)
[2017-07-19] MEDS ORDERED: ONDA4TAB8 SL (20:47)
[2017-07-19 20:52] VITALS: BP 122/64
--- OUTSIDE RECORDS SUMMARY | 2017-07-22 06:55 | XMS REPORT ---
Author Author RASHEED RAHMAN [facility] Address [address] [place] [address] Care Team Providers Care Dicer Operator Name Role Phone RASHEED RAHMAN Unavailable PROBLEMS Type Condition ICD9-CM Code [id number] Code Onset Dates Condition Status SNOMED Code Problem Fatigue R53.83 Active 84005765 Problem Upper respiratory tract infection, unspecified type J06.9 Active 05140358 Problem Varicose veins of both lower extremities I83.93 Active 40663091 Problem Neuropathy G62.9 Active 783666146 Problem Essential hypertension I10 Active 11514500 Problem Other chronic pain G89.29 Active 08516638 Problem Mild persistent asthma without complication J45.30 Active 623632120 Problem On home oxygen therapy Z99.81 Active 507372458019 Problem Mild chronic obstructive pulmonary disease J44.9 Active 712504665 Problem Snoring R06.83 Active 69353542 Problem Impaired circulation I99.9 Active 93424008 Problem Dysthymic disorder F34.1 Active 50620303 Problem MRSA (methicillin resistant staph aureus) culture positive Z22.322 Active 510627922 Problem 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 Active 09364404 Problem History of illicit drug use Z87.898 Active 054720560 Problem Panic disorder without agoraphobia F41.0 Active 35563049 ALLERGIES Substance Reaction Event Type Date Status Sulfamethoxazole-Trimethoprim Unknown Drug Allergy Jul, Active Codeine Phosphate swelling Drug Allergy Jul, Active SOCIAL HISTORY Never Assessed PLAN OF CARE Activity Details Follow Up prn Reason: VITAL SIGNS Height 64 in 2016-07-24 Weight 245.0 lbs 2016-07-24 Temperature 98.7 degrees Fahrenheit 2016-07-24 Heart Rate 80 bpm 2016-07-24 Respiratory Rate 22 2016-07-24 BMI 42.05 kg/m2 2016-07-24 Blood pressure systolic 128 mmHg 2016-07-24 Blood pressure diastolic 80 mmHg 2016-07-24 MEDICATIONS Medication Instructions Dosage Frequency Start Date End Date Duration Status Simvastatin 40 MG Orally Once a day 1 tablet in the evening 24h Active Cyclobenzaprine HCl 10 mg Orally 2 times a day 1 tablet 12h Mar, 30 day(s) Active Albuterol Sulfate (2.5 MG/3ML) 0.083% Inhalation every 6 hrs 3 ml as needed 6h Apr, Active Oxygen ... 2L with nasal cannula Active Nebulizer - as directed for use with inhaled medications Mar, lifetime Active Toprol XL 25 MG Orally Once a day 1 tablet at bedtime 24h Apr, Active Ropinirole HCl 0.5 MG Orally Once a day 1 tablet at bedtime 24h 30 days Active Xanax 0.25 MG Orally 2 times a day 1 tablet 12h Aug, 28 days Active Hydrochlorothiazide 50 MG Orally Once a day 1 tablet 24h Active Toviaz 4 MG Orally Once a day 1 tablet 24h Active Estradiol 0.5 MG Orally Once a day 1 tablet 24h Active Ranitidine HCl 150 MG 1 Tablet by Oral route 2 times per day Active Nitrofurantoin Monohyd Macro 100 MG Orally every 12 hrs 1 capsule with food 12h Active Gabapentin 300 MG Orally Once a day 1 capsule 24h Active Montelukast Sodium 10 MG Orally Once a day 1 tablet in the evening 24h Active Symbicort 160-4.5 MCG/ACT Inhalation Twice a day 2 puffs 12h Active Ventolin HFA 108 (90 Base) MCG/ACT Inhalation every 4 hrs 2 puffs as needed 4h Dec, Active Clindamycin HCl 300 MG Orally 4 times a day 1 capsule 6h Jul, Jul, 10 days Active RESULTS No Results PROCEDURES Procedure Date Ordered Result Body Site [facility] VISIT ESTABLISHED PATIENT Jul 24, 2016 IMMUNIZATIONS No Known Immunizations MEDICAL (GENERAL) HISTORY Type Description Date Medical History Anxiety disorder Medical History depression Medical History acid reflux Medical History asthma Surgical History carpal tunnel release bilateral Surgical History cholecystectomy Surgical History right knee replacement Surgical History left knee arthroscopy Surgical History hysterectomy, total with bilateral salpingo-oophorectomy (BSO ) Hospitalization History Surgeries only Hospitalization History hypotension, dizziness--[facility] 04/12/2016 Hospitalization History Colonoscopy 01/30/2014
--- OUTSIDE RECORDS SUMMARY | 2017-07-22 06:55 | XMS REPORT ---
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 Active Problem Dysthymic disorder F34.1 Active Problem Other chronic pain G89.29 Active Problem Mild persistent asthma without complication J45.30 Active Problem Mild chronic obstructive pulmonary disease J44.9 Active Problem Fatigue R53.83 Active Problem Panic disorder without agoraphobia F41.0 Active Problem Upper respiratory tract infection, unspecified type J06.9 Active Problem Varicose veins of both lower extremities I83.93 Active Problem Unspecified hereditary and idiopathic peripheral neuropathy 356.9 Active Problem 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
--- OUTSIDE RECORDS SUMMARY | 2017-07-22 06:55 | XMS REPORT | Clinical Summary ---
Author Author [facility] Address Unknown Phone Unavailable Care Team Providers Care Assembler Fishing Floats Name Role Phone Sayra Nickerson MD Unavailable Margot Nguyen MD Unavailable Sonya Rodriguez RN Unavailable Unavailable Winston De Santiago DO PCP Kenna Owens RN Unavailable Unavailable Nikki Sorensen RN Unavailable Unavailable Source Comments Some departments are not documenting in the electronic medical record. If you do not see the information that you expected, contact Release of Information in the Health Information Management department at [phone] for further assistance in locating additional records.[facility] Allergies Active Allergy Reactions Severity Noted Date Comments Sulfamethoxazole-Trimetho SEE COMMENTS Medium 04/01/2015 "I couldn't move for 2 prim days - I felt like I was going to get sick" Bumble Bee ANAPHYLAXIS High 04/01/2015 Codeine RASH Medium 06/17/2014 Current Medications Prescription Sig. Disp. Refills Start [...] mg 6 hours as needed for 15 tabletIndications: Knee Pain. 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) estrogens, conjugated(+) Apply a finger tip to [...] Ready to Quit: No; Counseling Given: Yes Alcohol Use Drinks/Week oz/Week Comments Yes 1 Cans of 0.6 beer Sex Assigned at Date Recorded Not on file Last Filed Vital Signs Vital Sign Reading Time Taken Blood Pressure 128/75 04/13/2015 12:05 PM ADMINISTRATIVE RECEPTIONIST Pulse 81 04/13/2015 12:05 PM ADMINISTRATIVE RECEPTIONIST Temperature 36.5 C (97.7 F) 04/13/2015 12:05 PM ADMINISTRATIVE RECEPTIONIST Respiratory Rate 16 03/22/2015 3:32 PM CDT Oxygen Saturation 96% 04/13/2015 12:05 PM ADMINISTRATIVE RECEPTIONIST Inhaled Oxygen - - Concentration Weight 115 kg (253 lb 8.5 oz) 04/13/2015 9:11 AM ADMINISTRATIVE RECEPTIONIST Height 162.6 cm (5' 4") 04/13/2015 9:11 AM ADMINISTRATIVE RECEPTIONIST Body Mass Index 43.52 04/13/2015 9:11 AM ADMINISTRATIVE RECEPTIONIST Plan of Treatment Health Maintenance Due Date Last Done Comments HEPATITIS C SCREENING 1962 PHYSICAL (COMPREHENSIVE) 1969 EXAM PERTUSSIS VACCINE 1973 TETANUS VACCINE 1979 CERVICAL CANCER SCREENING 1992 BREAST CANCER SCREENING 2002 COLORECTAL CANCER 2012 SCREENING INFLUENZA VACCINE 01/09/2017 Results Not on filefrom Last 3 Months
--- OUTSIDE RECORDS SUMMARY | 2017-07-22 06:56 | XMS REPORT ---
Author Author RASHEED RAHMAN [facility] Address [address] [place] [address] Care Team Providers Care Angle Shear Set Up Operator Name Role Phone RASHEED RAHMAN Unavailable PROBLEMS Type Condition ICD9-CM Code [id number] Code Onset Dates Condition Status SNOMED Code Problem Fatigue R53.83 Active 93527254 Problem Upper respiratory tract infection, unspecified type J06.9 Active 16904998 Problem Varicose veins of both lower extremities I83.93 Active 76951128 Problem Neuropathy G62.9 Active 766567197 Problem Essential hypertension I10 Active 68815024 Problem Other chronic pain G89.29 Active 84641559 Problem Mild persistent asthma without complication J45.30 Active 212288603 Problem On home oxygen therapy Z99.81 Active 846006119307 Problem Mild chronic obstructive pulmonary disease J44.9 Active 934922750 Problem Snoring R06.83 Active 99854036 Problem Impaired circulation I99.9 Active 15666849 Problem Dysthymic disorder F34.1 Active 14956773 Problem MRSA (methicillin resistant staph aureus) culture positive Z22.322 Active 748965996 Problem 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
--- OUTSIDE RECORDS SUMMARY | 2017-07-22 06:56 | XMS REPORT ---
Author Author RASHEED RAHMAN [facility] Address [address] [place] [address] Care Team Providers Care Form Setter Steel Forms Name Role Phone RASHEED RAHMAN Unavailable PROBLEMS Type Condition ICD9-CM Code [id number] Code Onset Dates Condition Status SNOMED Code Problem Fatigue R53.83 Active 18744362 Problem Upper respiratory tract infection, unspecified type J06.9 Active 50555685 Problem Varicose veins of both lower extremities I83.93 Active 07152232 Problem Neuropathy G62.9 Active 517353521 Problem Essential hypertension I10 Active 25070776 Problem Other chronic pain G89.29 Active 85788347 Problem Mild persistent asthma without complication J45.30 Active 348255171 Problem On home oxygen therapy Z99.81 Active 321103053560 Problem Mild chronic obstructive pulmonary disease J44.9 Active 759869355 Problem Snoring R06.83 Active 22952937 Problem Impaired circulation I99.9 Active 52575929 Problem Dysthymic disorder F34.1 Active 72153582 Problem MRSA (methicillin resistant staph aureus) culture positive Z22.322 Active 528016739 Problem 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
--- OUTSIDE RECORDS SUMMARY | 2017-07-22 06:56 | XMS REPORT ---
Author Author RASHEED RAHMAN [facility] Address [address] [place] [address] Care Team Providers Care Tow Bar Driver Name Role Phone RASHEED RAHMAN Unavailable PROBLEMS Type Condition ICD9-CM Code [id number] Code Onset Dates Condition Status SNOMED Code Problem Fatigue R53.83 Active 77356144 Problem Upper respiratory tract infection, unspecified type J06.9 Active 16248853 Problem Varicose veins of both lower extremities I83.93 Active 61064036 Problem Neuropathy G62.9 Active 998294976 Problem Essential hypertension I10 Active 62102336 Problem Other chronic pain G89.29 Active 47107849 Problem Mild persistent asthma without complication J45.30 Active 826738449 Problem On home oxygen therapy Z99.81 Active 935258382695 Problem Mild chronic obstructive pulmonary disease J44.9 Active 291717628 Problem Snoring R06.83 Active 49258899 Problem Impaired circulation I99.9 Active 72814076 Problem Dysthymic disorder F34.1 Active 91636602 Problem MRSA (methicillin resistant staph aureus) culture positive Z22.322 Active 463507160 Problem 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
--- OUTSIDE RECORDS SUMMARY | 2017-07-22 06:56 | XMS REPORT ---
Author Author RASHEED RAHMAN [facility] Address [address] [place] [address] Care Team Providers Care Director Cost Name Role Phone RASHEED RAHMAN Unavailable PROBLEMS Type Condition ICD9-CM Code [id number] Code Onset Dates Condition Status SNOMED Code Problem Methicillin resistant Staphylococcus aureus 041.12 Active 564286878 Problem Dysthymic disorder F34.1 Active 39687437 Problem Impaired circulation I99.9 Active 82765285 Problem Snoring R06.83 Active 85029533 Problem Unspecified hereditary and idiopathic peripheral neuropathy 356.9 Active 713545362 Problem Mild persistent asthma without complication J45.30 Active 919702894 Problem Upper respiratory tract infection, unspecified type J06.9 Active 75225839 Problem Panic disorder without agoraphobia F41.0 Active 79968381 Problem 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
--- OUTSIDE RECORDS SUMMARY | 2017-07-22 06:56 | XMS REPORT ---
Author Author RASHEED RAHMAN Organization [employer] Address Unknown Phone Unavailable Care Team Providers Care Forge Utility Worker Name Role Phone RASHEED RAHMAN CP Unavailable [...] 696.1 Active Problem Snoring R06.83 Active Medications Medication Code System Code Instructions Start Date End Date Status Dosage Xanax [facility] [address]-96 0.25 MG Orally 2 times a day August 31, 2015 1 tablet Results No Known Results Summary Purpose [employer] Submission
--- OUTSIDE RECORDS SUMMARY | 2017-07-22 06:56 | XMS REPORT ---
Author Author RASHEED RAHMAN Organization [employer] Address Unknown Phone Unavailable Care Team Providers Care Sanitation Superintendent Name Role Phone RASHEED RAHMAN CP Unavailable Allergies, Adverse Reactions, Alerts Substance Reaction Event Type Hydrocodone-acetaminophen 10-325 Mg Tablet BROKE PAIN CONTRACT Non Drug Allergy Bactrim Ds 800-160 Mg Tablet numbness in hands Non Drug Allergy Problems Problem Type Condition ICD-9 Code Onset Dates Condition Status Assessment Anxiety 300.00 Active Assessment Allergic rhinitis due to pollen 477.0 Active Assessment Unspecified breast screening V76.10 Active Assessment Family history of coronary arteriosclerosis V17.3 Active Problem Unspecified breast screening V76.10 Active Problem Methicillin resistant Staphylococcus aureus 041.12 Active Problem Allergic rhinitis due to pollen 477.0 Active Problem 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 79656084466 150 MG 1 Tablet by Oral route 2 times per day ZyrTEC [facility] [address]-37 10 MG Orally Once a day Feb 23, 2015 Jun 23, 2015 1 tablet as needed HydrOXYzine HCl [facility] [address]-80 50 MG 2 times a day December 17, 2013 1 Tablet by Oral route 2 times per day for anxiety PT NEEDS AN APPT FOR FURTHER REFILLS Procedures Procedure Coding System Code Date Office Visit, Est Pt., Level 3 CPT-4 48114 Feb 23, 2015 [facility] VISIT ESTABLISHED PATIENT CPT-4 G0467 Feb 23, 2015 Vital Signs Date/Time: Feb 23, 2015 Temperature 97.7 F Weight 253 lbs Height 64 in BMI 43.42 Index Blood Pressure Diastolic 70 mmHg Blood Pressure Systolic 122 mmHg Cardiac Monitoring Heart Rate 78 bpm Results No Known Results Summary Purpose [employer]Works Submission
--- OUTSIDE RECORDS SUMMARY | 2017-07-22 06:56 | XMS REPORT ---
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 Assessment Mild chronic obstructive pulmonary disease J44.9 Active Problem Methicillin resistant Staphylococcus aureus 041.12 Active Problem Unspecified breast screening V76.10 Active Problem Pain in joint, shoulder region 719.41 Active Problem Allergic rhinitis due to pollen 477.0 Active Problem Other psoriasis 696.1 Active Problem Snoring R06.83 Active Medications Medication Code System Code Instructions Start Date End Date Status Dosage Estradiol [facility] 74340651922 0.5 MG TAKE 1 TABLET BY MOUTH DAILY Albuterol Sulfate [facility] [address]-87 (2.5 MG/3ML) 0.083% Inhalation every 6 hrs Apr 11, 2016 3 ml as needed HydrOXYzine HCl [facility] [address]-87 50 mg Orally 2 times a day December 17, 2013 1 tablet Ranitidine HCl [facility] 73634662936 150 MG 1 Tablet by Oral route 2 times per day Cyclobenzaprine HCl [facility] [address]-15 10 mg Orally 2 times a day Mar 30, 2016 May 29, 2016 1 tablet Ventolin HFA [facility] [address]-18 108 (90 Base) MCG/ACT Inhalation every 4 hrs December 16, 2015 2 puffs as needed Prozac [facility] [address]-61 20 mg Orally Once a day September 02, 2015 1 capsule in the morning Nebulizer [facility] 25534-[address]12 - Apr 10, 2016 as directed for use with inhaled medications Symbicort [facility] [address]-61 160-4.5 mcg/actuation Inhalation Twice a day September 02, 2014 2 puffs Xanax [facility] [address]-86 0.25 MG Orally 2 times a day August 31, 2015 1 tablet Ranitidine HCl [facility] [address]-42 150 MG Orally twice a day Mar 30, 2016 1 tablet Results No Known Results Summary Purpose [employer]ClinicalWorks Submission
--- OUTSIDE RECORDS SUMMARY | 2017-07-22 06:56 | XMS REPORT ---
Author Author RASHEED RAHMAN Organization [employer] Address Unknown Phone Unavailable Care Team Providers Care Supervisor Patching Name Role Phone RASHEED RAHMAN CP Unavailable Allergies No Known Allergies Problems Problem Type Condition Code Onset Dates Condition Status Problem Methicillin resistant Staphylococcus aureus 041.12 Active Problem Allergic rhinitis due to pollen 477.0 Active Problem Unspecified breast screening V76.10 Active Problem Fatigue R53.83 Active Problem Panic disorder without agoraphobia F41.0 Active Problem Varicose veins of both lower extremities I83.93 Active Problem Impaired circulation I99.9 Active Problem 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
--- OUTSIDE RECORDS SUMMARY | 2017-07-22 06:56 | XMS REPORT ---
Author Author RASHEED RAHMAN [facility] Address [address] [place] [address] Care Team Providers Care Maritime Engineer Name Role Phone RASHEED RAHMAN Unavailable PROBLEMS Type Condition ICD9-CM Code [id number] Code Onset Dates Condition Status SNOMED Code Problem Fatigue R53.83 Active 80081866 Problem Upper respiratory tract infection, unspecified type J06.9 Active 49695336 Problem Varicose veins of both lower extremities I83.93 Active 12901263 Problem Neuropathy G62.9 Active 670557375 Problem Essential hypertension I10 Active 26986965 Problem Other chronic pain G89.29 Active 62662002 Problem Mild persistent asthma without complication J45.30 Active 756292687 Problem On home oxygen therapy Z99.81 Active 519339758173 Problem Mild chronic obstructive pulmonary disease J44.9 Active 800138594 Problem Snoring R06.83 Active 80652904 Problem Impaired circulation I99.9 Active 94161143 Problem Dysthymic disorder F34.1 Active 19112684 Problem MRSA (methicillin resistant staph aureus) culture positive Z22.322 Active 255828587 Problem 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
--- OUTSIDE RECORDS SUMMARY | 2017-07-22 06:56 | XMS REPORT ---
Author Author RASHEED RAHMAN [facility] Address [address] [place] [address] Care Team Providers Care Building Performance Consultant Name Role Phone RASHEED RAHMAN Unavailable PROBLEMS Type Condition ICD9-CM Code [id number] Code Onset Dates Condition Status SNOMED Code Problem Panic disorder without agoraphobia F41.0 Active 03073068 Problem Varicose veins of both lower extremities I83.93 Active 57122219 Problem Fatigue R53.83 Active 72117312 Problem Essential hypertension I10 Active 52797707 Problem On home oxygen therapy Z99.81 Active 257523359856 Problem Mild persistent asthma without complication J45.30 Active 533227590 Problem Upper respiratory tract infection, unspecified type J06.9 Active 73763325 Problem Mild chronic obstructive pulmonary disease J44.9 Active 876608553 Problem Other chronic pain G89.29 Active 92193673 Problem Methicillin resistant Staphylococcus aureus 041.12 Active 488778743 Problem Impaired circulation I99.9 Active 51092292 Problem Snoring R06.83 Active 64160697 Problem Dysthymic disorder F34.1 Active 56521825 Problem Unspecified hereditary and idiopathic peripheral neuropathy 356.9 Active 533051868 Problem 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
--- OUTSIDE RECORDS SUMMARY | 2017-07-22 06:56 | XMS REPORT ---
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 Active Problem Fatigue R53.83 Active Problem Panic disorder without agoraphobia F41.0 Active Problem On home oxygen therapy Z99.81 Active Problem Mild chronic obstructive pulmonary disease J44.9 Active Problem Essential hypertension I10 Active Problem Upper respiratory tract infection, unspecified type J06.9 Active Problem Varicose veins of both lower extremities I83.93 Active Problem Other chronic pain G89.29 Active Problem Mild persistent asthma without complication J45.30 Active Problem Pain in joint, shoulder region 719.41 Active Problem Other psoriasis 696.1 Active Problem Unspecified hereditary and idiopathic peripheral neuropathy 356.9 Active Problem 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
--- OUTSIDE RECORDS SUMMARY | 2017-07-22 06:56 | XMS REPORT ---
Author Author IVAN HINOJOSA Organization [facility] Address [address] [place] [address] Care Team Providers Care Physical Design Engineer Name Role Phone MICAELA IVAN Unavailable PROBLEMS Type Condition ICD9-CM Code [id number] Code Onset Dates Condition Status SNOMED Code Problem Panic disorder without agoraphobia F41.0 Active 78626351 Problem Varicose veins of both lower extremities I83.93 Active 29815590 Problem Fatigue R53.83 Active 55096912 Problem Essential hypertension I10 Active 07480868 Problem On home oxygen therapy Z99.81 Active 684224558079 Problem Mild persistent asthma without complication J45.30 Active 664701384 Problem Upper respiratory tract infection, unspecified type J06.9 Active 77453818 Problem Mild chronic obstructive pulmonary disease J44.9 Active 144502192 Problem Other chronic pain G89.29 Active 40086853 Problem Snoring R06.83 Active 06609357 Problem Impaired circulation I99.9 Active 96233163 Problem History of illicit drug use Z87.898 Active 022801879 Problem Dysthymic disorder F34.1 Active 32215276 Problem MRSA (methicillin resistant staph aureus) culture positive Z22.322 Active 324171021 Problem 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 Active 81242015 ALLERGIES Unknown Allergies SOCIAL HISTORY No smoking Hx information available PLAN OF CARE Activity Details Follow Up 3 Months Reason: VITAL SIGNS MEDICATIONS Unknown Medications RESULTS No Results PROCEDURES Procedure Date Ordered Related Diagnosis Body Site DEBRIDE NAIL, 6 OR MORE May 12, 2016 [facility]MERLY [facility], [facility]–1983 VISIT ESTABLISHED PATIENT May 12, 2016 Office Visit, Est Pt., Level 3 May 12, 2016 IMMUNIZATIONS No Known Immunizations
--- OUTSIDE RECORDS SUMMARY | 2017-07-22 06:56 | XMS REPORT ---
Author Author RASHEED RAHMAN Organization [employer] Address Unknown Phone Unavailable Care Team Providers Care Footwear Stitcher Name Role Phone RASHEED RAHMAN CP Unavailable Allergies No Known Allergies Problems Problem Type Condition Code Onset Dates Condition Status Problem Allergic rhinitis due to pollen 477.0 Active Problem Impaired circulation I99.9 Active Problem Snoring R06.83 Active Problem Upper respiratory tract infection, unspecified type J06.9 Active Problem Varicose veins of both lower extremities I83.93 Active Problem Mild persistent asthma without complication J45.30 Active Problem 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 Active Problem Dysthymic disorder F34.1 Active Problem Fatigue R53.83 Active Problem Panic disorder without agoraphobia F41.0 Active Assessment 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 Active Problem Pain in joint, shoulder region 719.41 Active Problem Other psoriasis 696.1 Active Problem Unspecified hereditary and idiopathic peripheral neuropathy 356.9 Active Problem Methicillin resistant Staphylococcus aureus 041.12 Active Problem 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
--- OUTSIDE RECORDS SUMMARY | 2017-07-22 06:56 | XMS REPORT ---
Author Author RASHEED RAHMAN [facility] e[employer] Address Unknown Phone Unavailable Care Team Providers Care Feather Trimmer Name Role Phone RASHEED RAHMAN Unavailable Allergies, Adverse Reactions, Alerts Substance Reaction Event Type Sulfamethoxazole-Trimethoprim Info Not Available Drug Allergy Codeine Phosphate swelling Drug Allergy Problems Problem Type Condition Code Onset Dates [...] Panic disorder without agoraphobia F41.0 Active Assessment Dysthymic disorder F34.1 Active Assessment Mild persistent asthma without complication J45.30 Active Assessment Upper respiratory tract infection, unspecified type J06.9 Active Problem Pain in joint, shoulder region 719.41 Active Problem Other psoriasis 696.1 Active Problem Unspecified hereditary and idiopathic peripheral neuropathy 356.9 Active Problem Methicillin resistant Staphylococcus aureus 041.12 Active Problem 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 Problem Unspecified breast screening V76.10 Active Medications Medication Code System Code Instructions Start Date End Date Status Dosage Xanax [facility] [address]-56 0.25 MG Orally 2 times a day August 31, 2015 1 tablet Zithromax Z-Mihir [facility] [address]-55 250 MG Orally Once a day December 16, 2015 December 21, 2015 2 tablets on the first day, then 1 tablet daily for 4 days Ventolin HFA [facility] [address]-60 108 (90 Base) MCG/ACT Inhalation every 4 hrs December 16, 2015 2 puffs as needed Estradiol [facility] 66102469116 0.5 MG TAKE 1 TABLET BY MOUTH DAILY Symbicort [facility] [address]-41 160-4.5 mcg/actuation Inhalation Twice a day September 02, 2014 2 puffs HydrOXYzine HCl [facility] [address]-81 50 mg Orally 2 times a day December 17, 2013 1 tablet Prozac [facility] [address]-24 20 mg Orally Once a day September 02, 2015 1 capsule in the morning Ranitidine HCl [facility] 67047806413 150 MG 1 Tablet by Oral route 2 times per day Procedures Procedure Coding System Code Date Office Visit, Est Pt., Level 3 CPT-4 39715 December 16, 2015 [facility] VISIT ESTABLISHED PATIENT CPT-4 G0467 December 16, 2015 Vital Signs Date/Time: December 16, 2015 Cardiac Monitoring Heart Rate 70 bpm Weight 233 lbs Height 64 in BMI 39.99 Index Blood Pressure Diastolic 70 mmHg Blood Pressure Systolic 110 mmHg Results No Known Results Summary Purpose eClinicalWorks Submission
--- OUTSIDE RECORDS SUMMARY | 2017-07-22 06:57 | XMS REPORT ---
Author Author RASHEED RAHMAN [facility] Address [address] [place] [address] Care Team Providers Care Fur Polisher Name Role Phone RASHEED RAHMAN Unavailable PROBLEMS Type Condition ICD9-CM Code [id number] Code Onset Dates Condition Status SNOMED Code Problem Fatigue R53.83 Active 70774080 Problem Upper respiratory tract infection, unspecified type J06.9 Active 84990890 Problem Varicose veins of both lower extremities I83.93 Active 96563256 Problem Neuropathy G62.9 Active 082713998 Problem Essential hypertension I10 Active 39490321 Problem Other chronic pain G89.29 Active 33711847 Problem Mild persistent asthma without complication J45.30 Active 778485767 Problem On home oxygen therapy Z99.81 Active 179795547251 Problem Mild chronic obstructive pulmonary disease J44.9 Active 514070669 Problem Snoring R06.83 Active 88949469 Problem Impaired circulation I99.9 Active 88007234 Problem Dysthymic disorder F34.1 Active 88571348 Problem MRSA (methicillin resistant staph aureus) culture positive Z22.322 Active 992918626 Problem 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 Active 37708209 Problem History of illicit drug use Z87.898 Active 770792433 Problem Panic disorder without agoraphobia F41.0 Active 82472296 ALLERGIES No Information SOCIAL HISTORY Never Assessed PLAN OF CARE VITAL SIGNS MEDICATIONS Medication Instructions Dosage Frequency Start Date End Date Duration Status Wound Dressings - Externally every 3 days completely cover wound with pad 17 Jul, 2016 30 days Active RESULTS No Results PROCEDURES No [...]
--- OUTSIDE RECORDS SUMMARY | 2017-07-22 06:57 | XMS REPORT ---
Author Author RASHEED RAHMAN [facility] Address [address] [place] [address] Care Team Providers Care Stain Wiper Name Role Phone RASHEED RAHMAN Unavailable PROBLEMS Type Condition ICD9-CM Code [id number] Code Onset Dates Condition Status SNOMED Code Problem Methicillin resistant Staphylococcus aureus 041.12 Active 448629678 Problem Dysthymic disorder F34.1 Active 35533266 Problem Impaired circulation I99.9 Active 18702366 Problem Snoring R06.83 Active 12299165 Problem Unspecified hereditary and idiopathic peripheral neuropathy 356.9 Active 846479640 Problem Mild persistent asthma without complication J45.30 Active 207138603 Problem Upper respiratory tract infection, unspecified type J06.9 Active 72912247 Problem Panic disorder without agoraphobia F41.0 Active 18491069 Problem 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 Active 82148363 Problem Varicose veins of both lower extremities I83.93 Active 33676963 Problem Fatigue R53.83 Active 83973651 ALLERGIES Unknown Allergies SOCIAL HISTORY No smoking Hx information available PLAN OF CARE VITAL SIGNS MEDICATIONS Unknown Medications RESULTS No Results PROCEDURES No Known procedures IMMUNIZATIONS No Known Immunizations
--- OUTSIDE RECORDS SUMMARY | 2017-07-22 06:57 | XMS REPORT ---
Author Author RASHEED RAHMAN [facility] Address [address] [place] [address] Care Team Providers Care Concrete Buildings Assembler Name Role Phone RASHEED RAHMAN Unavailable PROBLEMS Type Condition ICD9-CM Code [id number] Code Onset Dates Condition Status SNOMED Code Problem Panic disorder without agoraphobia F41.0 Active 92688333 Problem Varicose veins of both lower extremities I83.93 Active 49635140 Problem Fatigue R53.83 Active 63056627 Problem Essential hypertension I10 Active 45514655 Problem On home oxygen therapy Z99.81 Active 934171042598 Problem Mild persistent asthma without complication J45.30 Active 603567145 Problem Upper respiratory tract infection, unspecified type J06.9 Active 70414391 Problem Mild chronic obstructive pulmonary disease J44.9 Active 429400953 Problem Other chronic pain G89.29 Active 46310785 Assessment Dizziness R42 14 Apr, 2016 Active 479052355 Assessment Shortness of breath R06.02 14 Apr, 2016 Active 268198093 Problem Methicillin resistant Staphylococcus aureus 041.12 Active 923472929 Problem Impaired circulation I99.9 Active 24398692 Problem Snoring R06.83 Active 87952493 Problem Dysthymic disorder F34.1 Active 20427738 Problem Unspecified hereditary and idiopathic peripheral neuropathy 356.9 Active 669859273 Problem 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 Active 13223617 ALLERGIES Substance Reaction Event Type Date Status Sulfamethoxazole-Trimethoprim Unknown Drug Allergy Apr, Active Codeine Phosphate swelling Drug Allergy Apr, Active SOCIAL HISTORY No smoking Hx information available PLAN OF CARE VITAL SIGNS Height 64 in 2016-04-24 Weight 243.4 lbs 2016-04-24 Heart Rate 84 bpm 2016-04-24 Respiratory Rate 20 2016-04-24 BMI 41.77 kg/m2 2016-04-24 Blood pressure systolic 128 mmHg 2016-04-24 Blood pressure diastolic 78 mmHg 2016-04-24 MEDICATIONS Medication Instructions Dosage Frequency Start Date End Date Duration Status Ventolin HFA 108 (90 Base) MCG/ACT Inhalation every 4 hrs 2 puffs as needed 4h 07 Dec, 2015 Active Montelukast Sodium 10 MG Orally Once a day 1 tablet in the evening 24h Active Simvastatin 40 MG Orally Once a day 1 tablet in the evening 24h Active Toprol XL 25 MG Orally Once a day at bedtime 1 tablet 14 Apr, 2016 Active Albuterol Sulfate (2.5 MG/3ML) 0.083% Inhalation every 6 hrs 3 ml as needed 6h 01 Apr, 2016 Active Symbicort 160-4.5 mcg/actuation Inhalation Twice a day 2 puffs 12h 25 Aug, 2014 Active HydrOXYzine HCl 50 mg Orally 2 times a day 1 tablet 12h Dec, 90 days Active Gabapentin 300 MG Orally Once a day 1 capsule 24h Active Ropinirole HCl 0.5 MG Active Xanax 0.25 MG Orally 2 times a day 1 tablet 12h Aug, 28 days Active Cyclobenzaprine HCl 10 mg Orally 2 times a day 1 tablet 12h 20 Mar, 2016 May, 30 day(s) Active Estradiol 0.5 MG TAKE 1 TABLET BY MOUTH DAILY 90 days Active Prozac 20 mg Orally Once a day 1 capsule in the morning 24h 24 Aug, 2015 90 days Active Oxygen Active Ranitidine HCl 150 MG 1 Tablet by Oral route 2 times per day Active RESULTS No Results PROCEDURES Procedure Date Ordered Related Diagnosis Body Site [facility] VISIT ESTABLISHED PATIENT Apr 24, 2016 Office Visit, Est Pt., Level 3 Apr 24, 2016 IMMUNIZATIONS No Known Immunizations
--- OUTSIDE RECORDS SUMMARY | 2017-07-22 06:57 | XMS REPORT ---
Author Author RASHEED RAHMAN [facility] Address [address] [place] [address] Care Team Providers Care Groundsman Name Role Phone RASHEED RAHMAN Unavailable PROBLEMS Type Condition ICD9-CM Code [id number] Code Onset Dates Condition Status SNOMED Code Problem Fatigue R53.83 Active 94200606 Problem Upper respiratory tract infection, unspecified type J06.9 Active 45910001 Problem Varicose veins of both lower extremities I83.93 Active 39271026 Problem Neuropathy G62.9 Active 386037950 Problem Essential hypertension I10 Active 83121248 Problem Other chronic pain G89.29 Active 62923351 Problem Mild persistent asthma without complication J45.30 Active 261987190 Problem On home oxygen therapy Z99.81 Active 757127501453 Problem Mild chronic obstructive pulmonary disease J44.9 Active 082927679 Problem Snoring R06.83 Active 94956042 Problem Impaired circulation I99.9 Active 13154742 Problem Dysthymic disorder F34.1 Active 36478196 Problem MRSA (methicillin resistant staph aureus) culture positive Z22.322 Active 589458339 Problem 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 Active 81220138 Problem History of illicit drug use Z87.898 Active 836848204 Problem Panic disorder without agoraphobia F41.0 Active 39765684 ALLERGIES No Information SOCIAL HISTORY Never Assessed PLAN OF CARE VITAL SIGNS MEDICATIONS Medication Instructions Dosage Frequency Start Date End Date Duration Status Ventolin HFA 108 (90 Base) MCG/ACT Inhalation every 4 hrs 2 puffs as needed 4h Dec, 90 days Active Gabapentin 300 MG Orally Once a day 1 capsule 24h 90 days Active Simvastatin 40 MG Orally Once a day 1 tablet in the evening 24h 90 days Active Estradiol 0.5 MG Orally Once a day 1 tablet 24h 90 days Active Montelukast Sodium 10 MG Orally Once a day 1 tablet in the evening 24h 90 days Active Symbicort 160-4.5 MCG/ACT Inhalation Twice a day 2 puffs 12h 90 days Active RESULTS No Results PROCEDURES No [...]
--- OUTSIDE RECORDS SUMMARY | 2017-07-22 06:57 | XMS REPORT ---
Author Author RASHEED RAHMAN [facility] Address [address] [place] [address] Care Team Providers Care Star Route Mail Driver Name Role Phone RASHEED RAHMAN Unavailable PROBLEMS Type Condition ICD9-CM Code HCV33-BD Code Onset Dates Condition Status SNOMED Code Problem Panic disorder without agoraphobia F41.0 Active 55169624 Problem Varicose veins of both lower extremities I83.93 Active 13045589 Problem Fatigue R53.83 Active 66069230 Problem Essential hypertension I10 Active 82669793 Problem On home oxygen therapy Z99.81 Active 257830562841 Problem Mild persistent asthma without complication J45.30 Active 853895731 Problem Upper respiratory tract infection, unspecified type J06.9 Active 20407329 Problem Mild chronic obstructive pulmonary disease J44.9 Active 817783788 Problem Other chronic pain G89.29 Active 74014972 Assessment Shortness of breath R06.02 May, Active 602088438 Problem Methicillin resistant Staphylococcus aureus 041.12 Active 234254495 Problem Impaired circulation I99.9 Active 41615026 Problem Snoring R06.83 Active 04522016 Problem Dysthymic disorder F34.1 Active 90400480 Problem Unspecified hereditary and idiopathic peripheral neuropathy 356.9 Active 037652881 Problem 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 Active 92209557 ALLERGIES Unknown Allergies SOCIAL HISTORY No smoking Hx information available PLAN OF CARE VITAL SIGNS MEDICATIONS Unknown Medications RESULTS No Results PROCEDURES Procedure Date Ordered Related Diagnosis Body Site PULMONARY FUNCTION TEST (IN-HOUSE) 2016-05-15 Abnormal RESPIRATORY FLOW VOLUME LOOP May 15, 2016 NEB/MDI DEMO May 15, 2016 SPRIOMETRY CHALLENGE May 15, 2016 SPIROMETRY May 15, 2016 IMMUNIZATIONS No Known Immunizations
--- OUTSIDE RECORDS SUMMARY | 2017-07-22 06:57 | XMS REPORT ---
Author Author LAURA DUFFY [facility] eClinicalWorks Address Unknown Phone Unavailable Care Team Providers Care Deputy Director Of Finance Name Role Phone LAURA DUFFY Unavailable Allergies No Known Allergies Problems Problem [...] Date End Date Status Dosage Ranitidine HCl [facility] 03556776107 150 MG 1 Tablet by Oral route 2 times per day Ranitidine HCl [facility] [address]-96 150 MG Orally twice a day Mar 30, 2016 1 tablet Simvastatin [facility] [address]-11 40 MG Orally Once a day 1 tablet in the evening Symbicort [facility] [address]-80 160-4.5 mcg/actuation Inhalation Twice a day September 02, 2014 2 puffs Gabapentin [facility] [address]-26 300 MG Orally Once a day 1 capsule Ropinirole HCl [facility] [address]-05 0.5 MG Orally not defined Albuterol Sulfate [facility] [address]-12 (2.5 MG/3ML) 0.083% Inhalation every 6 hrs Apr 11, 2016 3 ml as needed Nebulizer [facility] [address]26 - Apr 10, 2016 as directed for use with inhaled medications Estradiol [facility] 03464423582 0.5 MG TAKE 1 TABLET BY MOUTH DAILY Prozac [facility] [address]-30 20 mg Orally Once a day September 02, 2015 1 capsule in the morning Montelukast Sodium [facility] [address]-83 10 MG Orally Once a day 1 tablet in the evening Ventolin HFA [facility] [address]-60 108 (90 Base) MCG/ACT Inhalation every 4 hrs December 16, 2015 2 puffs as needed Quinapril HCl [facility] [address]-04 10 MG Orally Once a day 1 tablet Cyclobenzaprine HCl [facility] [address]-83 10 mg Orally 2 times a day Mar 30, 2016 May 29, 2016 1 tablet Xanax [facility] [address]-05 0.25 MG Orally 2 times a day August 31, 2015 1 tablet HydrOXYzine HCl [facility] [address]-35 50 mg Orally 2 times a day December 17, 2013 1 tablet Results No Known Results Summary Purpose eClinicalWorks Submission
--- OUTSIDE RECORDS SUMMARY | 2017-07-22 06:57 | XMS REPORT ---
Author Author RASHEED RAHMAN [facility] Address [address] [place] [address] Care Team Providers Care Official Court Interpreter Name Role Phone RASHEED RAHMAN Unavailable PROBLEMS Type Condition ICD9-CM Code KTL36-CT Code Onset Dates Condition Status SNOMED Code Problem Fatigue R53.83 Active 13706174 Problem Upper respiratory tract infection, unspecified type J06.9 Active 33093130 Problem Varicose veins of both lower extremities I83.93 Active 11489315 Problem Neuropathy G62.9 Active 510603876 Problem Essential hypertension I10 Active 96587821 Problem Other chronic pain G89.29 Active 17433158 Problem Mild persistent asthma without complication J45.30 Active 327265239 Problem On home oxygen therapy Z99.81 Active 813290984153 Problem Mild chronic obstructive pulmonary disease J44.9 Active 469830060 Problem Snoring R06.83 Active 66154624 Problem Impaired circulation I99.9 Active 18039071 Problem Dysthymic disorder F34.1 Active 74386609 Problem MRSA (methicillin resistant staph aureus) culture positive Z22.322 Active 702716569 Problem 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 Active 50849712 Problem History of illicit drug use Z87.898 Active 876490163 Problem Panic disorder without agoraphobia F41.0 Active 16214743 ALLERGIES No Information SOCIAL HISTORY Never Assessed [...]
--- OUTSIDE RECORDS SUMMARY | 2017-07-22 06:57 | XMS REPORT ---
Author Author RASHEED RAHMAN [facility] Address [address] [place] [address] Care Team Providers Care Member Service Specialist Name Role Phone RASHEED RAHMAN Unavailable PROBLEMS Type Condition ICD9-CM Code FXF59-FB Code Onset Dates Condition Status SNOMED Code Problem Fatigue R53.83 Active 64314429 Problem Upper respiratory tract infection, unspecified type J06.9 Active 84420279 Problem Varicose veins of both lower extremities I83.93 Active 97756086 Problem Neuropathy G62.9 Active 580514482 Problem Essential hypertension I10 Active 25796588 Problem Other chronic pain G89.29 Active 16795256 Problem Mild persistent asthma without complication J45.30 Active 385053060 Problem On home oxygen therapy Z99.81 Active 923317050600 Problem Mild chronic obstructive pulmonary disease J44.9 Active 863814331 Problem Snoring R06.83 Active 16909191 Problem Impaired circulation I99.9 Active 33837586 Problem Dysthymic disorder F34.1 Active 70404348 Problem MRSA (methicillin resistant staph aureus) culture positive Z22.322 Active 034581719 Problem 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 Active 32071843 Problem History of illicit drug use Z87.898 Active 722495299 Problem Panic disorder without agoraphobia F41.0 Active 99337683 ALLERGIES Unknown Allergies SOCIAL HISTORY No smoking Hx information available PLAN OF CARE VITAL SIGNS MEDICATIONS Medication Instructions Dosage Frequency Start Date End Date Duration Status Ventolin HFA 108 (90 Base) MCG/ACT Inhalation every 4 hrs 2 puffs as needed 4h Dec, Active Cyclobenzaprine HCl 10 mg Orally 2 times a day 1 tablet 12h 20 Mar, 2016 30 day(s) Active Gabapentin 300 MG Orally Once a day 1 capsule 24h Active Albuterol Sulfate (2.5 MG/3ML) 0.083% Inhalation every 6 hrs 3 ml as needed 6h Apr, Active Xanax 0.25 MG Orally 2 times a day 1 tablet 12h Aug, 28 days Active Nebulizer - as directed for use with inhaled medications Mar, lifetime Active Toviaz 4 MG Orally Once a day 1 tablet 24h Active Montelukast Sodium 10 MG Orally Once a day 1 tablet in the evening 24h Active Ropinirole HCl 0.5 MG Active Estradiol 0.5 MG Orally Once a day 1 tablet 24h Active Nitrofurantoin Monohyd Macro 100 MG Orally every 12 hrs 1 capsule with food 12h Active Simvastatin 40 MG Orally Once a day 1 tablet in the evening 24h Active Ranitidine HCl 150 MG 1 Tablet by Oral route 2 times per day Active Oxygen ... 2L with nasal cannula Active Toprol XL 25 MG Orally Once a day 1 tablet at bedtime 24h Apr, Active Hydrochlorothiazide 50 MG Orally Once a day 1 tablet 24h Active RESULTS No Results PROCEDURES No Known procedures IMMUNIZATIONS No Known Immunizations
--- OUTSIDE RECORDS SUMMARY | 2017-07-22 06:57 | XMS REPORT ---
Author Author RASHEED RAHMAN [facility] Address [address] [place] [address] Care Team Providers Care Food And Beverage Manager Name Role Phone RASHEED RAHMAN Unavailable PROBLEMS Type Condition ICD9-CM Code [id number] Code Onset Dates Condition Status SNOMED Code Problem Fatigue R53.83 Active 55465854 Problem Upper respiratory tract infection, unspecified type J06.9 Active 98093902 Problem Varicose veins of both lower extremities I83.93 Active 66786831 Problem Neuropathy G62.9 Active 170987689 Problem Essential hypertension I10 Active 09082807 Problem Other chronic pain G89.29 Active 19560786 Problem Mild persistent asthma without complication J45.30 Active 492984208 Problem On home oxygen therapy Z99.81 Active 898291900010 Problem Mild chronic obstructive pulmonary disease J44.9 Active 128837055 Problem Snoring R06.83 Active 24813562 Problem Impaired circulation I99.9 Active 79608909 Problem Dysthymic disorder F34.1 Active 52539010 Problem MRSA (methicillin resistant staph aureus) culture positive Z22.322 Active 641964850 Problem 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 Active 34307711 Problem History of illicit drug use Z87.898 Active 824595821 Problem Panic disorder without agoraphobia F41.0 Active 32532139 ALLERGIES Substance Reaction Event Type Date Status Sulfamethoxazole-Trimethoprim Unknown Drug Allergy Jun, Active Codeine Phosphate swelling Drug Allergy Jun, Active SOCIAL HISTORY No smoking Hx information available PLAN OF CARE Activity Details Follow Up 3 Months Reason:epigastric pain VITAL SIGNS Height 64 in 2016-06-14 Weight 245 lbs 2016-06-14 Temperature 97.6 degrees Fahrenheit 2016-06-14 Heart Rate 78 bpm 2016-06-14 Respiratory Rate 20 2016-06-14 BMI 42.05 kg/m2 2016-06-14 Blood pressure systolic 120 mmHg 2016-06-14 Blood pressure diastolic 72 mmHg 2016-06-14 MEDICATIONS Medication Instructions Dosage Frequency Start Date End Date Duration Status Ventolin HFA 108 (90 Base) MCG/ACT Inhalation every 4 hrs 2 puffs as needed 4h Dec, Active Brovana 15 MCG/2ML Inhalation Twice a day 2 ml 12h Active PredniSONE 20 mg Orally Once a day 1 tablet 24h Jun, Jun, 05 days Active Montelukast Sodium 10 MG Orally Once a day 1 tablet in the evening 24h Active Albuterol Sulfate (2.5 MG/3ML) 0.083% Inhalation every 6 hrs 3 ml as needed 6h Apr, Active HydrOXYzine HCl 50 mg Orally 2 times a day 1 tablet 12h Dec, 90 days Active Budesonide 0.5 MG/2ML Inhalation Twice a day 2 ml 12h Active Cyclobenzaprine HCl 10 mg Orally 2 times a day 1 tablet 12h Mar, 30 day(s) Active Gabapentin 300 MG Orally Once a day 1 capsule 24h Active Oxygen Active Meclizine HCl 25 MG Orally every 8 hours as needed 1 tablet as needed Apr, 7 days Active Ranitidine HCl 150 MG 1 Tablet by Oral route 2 times per day Active Xanax 0.25 MG Orally 2 times a day 1 tablet 12h Aug, 28 days Active Simvastatin 40 MG Orally Once a day 1 tablet in the evening 24h Active Prozac 20 mg Orally Once a day 1 capsule in the morning 24h 24 Aug, 2015 90 days Active Ropinirole HCl 0.5 MG Active Toprol XL 25 MG Orally Once a day at bedtime 1 tablet Apr, Active Estradiol 0.5 MG TAKE 1 TABLET BY MOUTH DAILY 90 Active RESULTS No Results PROCEDURES Procedure Date Ordered Related Diagnosis Body Site [facility] VISIT ESTABLISHED PATIENT Jun 14, 2016 Office Visit, Est Pt., Level 3 Jun 14, 2016 IMMUNIZATIONS No Known Immunizations
--- OUTSIDE RECORDS SUMMARY | 2017-07-22 06:58 | XMS REPORT ---
Author Author YAMILET SEGAL Organization [facility] Address [address] [place] [address] Care Team Providers Care Learning And Development Specialist Name Role Phone YAMILET SEGAL Unavailable PROBLEMS Type Condition ICD9-CM Code [id number] Code Onset Dates Condition Status SNOMED Code Problem Fatigue R53.83 Active 43922560 Problem Upper respiratory tract infection, unspecified type J06.9 Active 79206712 Problem Varicose veins of both lower extremities I83.93 Active 11835152 Problem Neuropathy G62.9 Active 719777083 Problem Essential hypertension I10 Active 26020863 Problem Other chronic pain G89.29 Active 15385794 Problem Mild persistent asthma without complication J45.30 Active 567209576 Problem On home oxygen therapy Z99.81 Active 318538199093 Problem Mild chronic obstructive pulmonary disease J44.9 Active 632436157 Problem Snoring R06.83 Active 08940004 Problem Impaired circulation I99.9 Active 70367547 Problem Dysthymic disorder F34.1 Active 42080689 Problem MRSA (methicillin resistant staph aureus) culture positive Z22.322 Active 840064520 Problem 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
--- OUTSIDE RECORDS SUMMARY | 2017-07-22 06:58 | XMS REPORT ---
Author Author RASHEED RAHMAN [facility] Address [address] [place] [address] Care Team Providers Care Drier And Pulverizer Tender Name Role Phone RASHEED RAHMAN Unavailable PROBLEMS Type Condition ICD9-CM Code [id number] Code Onset Dates Condition Status SNOMED Code Problem Fatigue R53.83 Active 85208733 Problem Upper respiratory tract infection, unspecified type J06.9 Active 45344157 Problem Varicose veins of both lower extremities I83.93 Active 08557258 Problem Neuropathy G62.9 Active 457333094 Problem Essential hypertension I10 Active 88543409 Problem Other chronic pain G89.29 Active 03361493 Problem Mild persistent asthma without complication J45.30 Active 180384109 Problem On home oxygen therapy Z99.81 Active 010695736903 Problem Mild chronic obstructive pulmonary disease J44.9 Active 580641358 Problem Snoring R06.83 Active 53259378 Problem Impaired circulation I99.9 Active 82267608 Problem Dysthymic disorder F34.1 Active 54526183 Problem MRSA (methicillin resistant staph aureus) culture positive Z22.322 Active 713206560 Problem 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 Active 84410355 Problem History of illicit drug use Z87.898 Active 443987613 Problem Panic disorder without agoraphobia F41.0 Active 82089135 ALLERGIES No Information SOCIAL HISTORY Never Assessed [...]
--- OUTSIDE RECORDS SUMMARY | 2017-07-22 06:58 | XMS REPORT ---
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
--- OUTSIDE RECORDS SUMMARY | 2017-07-22 06:58 | XMS REPORT ---
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
--- OUTSIDE RECORDS SUMMARY | 2017-07-22 06:58 | XMS REPORT ---
Author Author RASHEED RAHMAN [facility] Address [address] [place] [address] Care Team Providers Care Marine Steam Fitter Name Role Phone RASHEED RAHMAN Unavailable PROBLEMS Type Condition ICD9-CM Code [id number] Code Onset Dates Condition Status SNOMED Code Problem Panic disorder without agoraphobia F41.0 Active 20336957 Problem Varicose veins of both lower extremities I83.93 Active 43161044 Problem Fatigue R53.83 Active 09281866 Problem Essential hypertension I10 Active 91894505 Problem On home oxygen therapy Z99.81 Active 684421532996 Problem Mild persistent asthma without complication J45.30 Active 079385043 Problem Upper respiratory tract infection, unspecified type J06.9 Active 07625193 Problem Mild chronic obstructive pulmonary disease J44.9 Active 980634444 Problem Other chronic pain G89.29 Active 51878342 Problem Snoring R06.83 Active 42159383 Problem Impaired circulation I99.9 Active 40269289 Problem History of illicit drug use Z87.898 Active 721277445 Problem Dysthymic disorder F34.1 Active 52900693 Problem MRSA (methicillin resistant staph aureus) culture positive Z22.322 Active 720356508 Problem 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
--- OUTSIDE RECORDS SUMMARY | 2017-07-22 06:58 | XMS REPORT ---
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
--- OUTSIDE RECORDS SUMMARY | 2017-07-22 06:58 | XMS REPORT ---
Author Author RASHEED RAHMAN [facility] Address [address] [place] [address] Care Team Providers Care Collections Attorney Name Role Phone RASHEED RAHMAN Unavailable PROBLEMS Type Condition ICD9-CM Code [id number] Code Onset Dates Condition Status SNOMED Code Problem Fatigue R53.83 Active 74932543 Problem Upper respiratory tract infection, unspecified type J06.9 Active 16802637 Problem Varicose veins of both lower extremities I83.93 Active 07125256 Problem Neuropathy G62.9 Active 804884533 Problem Essential hypertension I10 Active 04549807 Problem Other chronic pain G89.29 Active 03977786 Problem Mild persistent asthma without complication J45.30 Active 930242246 Problem On home oxygen therapy Z99.81 Active 488237020494 Problem Mild chronic obstructive pulmonary disease J44.9 Active 707212356 Problem Snoring R06.83 Active 74034125 Problem Impaired circulation I99.9 Active 69334689 Problem Dysthymic disorder F34.1 Active 12187754 Problem MRSA (methicillin resistant staph aureus) culture positive Z22.322 Active 646957516 Problem 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
--- OUTSIDE RECORDS SUMMARY | 2017-07-22 06:58 | XMS REPORT ---
Author Author RASHEED RAHMAN [facility] [employer] Address Unknown Phone Unavailable Care Team Providers Care Commercial Real Estate Assistant Name Role Phone RASHEED RAHMAN Unavailable Allergies, Adverse Reactions, Alerts Substance Reaction Event Type Sulfamethoxazole-Trimethoprim Info Not Available Drug Allergy Codeine Phosphate swelling Drug Allergy Problems Problem Type Condition Code Onset Dates Condition Status Problem Snoring R06.83 Active Problem Dysthymic disorder F34.1 Active Problem Impaired circulation I99.9 Active Problem Mild persistent asthma without complication J45.30 Active Assessment Breast cancer screening Z12.39 Active Problem Upper respiratory tract infection, unspecified type J06.9 Active Problem Other chronic pain G89.29 Active Problem Panic disorder without agoraphobia F41.0 Active Problem 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 Active Problem Varicose veins of both lower extremities I83.93 Active Problem Fatigue R53.83 Active Assessment Epigastric pain R10.13 Active Problem Unspecified hereditary and idiopathic peripheral neuropathy 356.9 Active Assessment Other chronic pain G89.29 Active Assessment Low back pain M54.5 Active Problem Other psoriasis 696.1 Active Problem Methicillin resistant Staphylococcus aureus 041.12 Active Problem 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 Problem Unspecified breast screening V76.10 Active Problem Pain in joint, shoulder region 719.41 Active Problem Allergic rhinitis due to pollen 477.0 Active Medications Medication Code System Code Instructions Start Date End Date Status Dosage Prozac [facility] [address]-73 20 mg Orally Once a day September 02, 2015 1 capsule in the morning Estradiol [facility] 19305544921 0.5 MG TAKE 1 TABLET BY MOUTH DAILY Xanax [facility] [address]-67 0.25 MG Orally 2 times a day August 31, 2015 1 tablet Ranitidine HCl [facility] [address]-05 150 MG Orally twice a day Mar 30, 2016 1 tablet Symbicort [facility] [address]-72 160-4.5 mcg/actuation Inhalation Twice a day September 02, 2014 2 puffs Ventolin HFA [facility] [address]-31 108 (90 Base) MCG/ACT Inhalation every 4 hrs December 16, 2015 2 puffs as needed Ranitidine HCl [facility] 52140112718 150 MG 1 Tablet by Oral route 2 times per day Cyclobenzaprine HCl [facility] [address]-70 10 mg Orally 2 times a day Mar 30, 2016 May 29, 2016 1 tablet HydrOXYzine HCl [facility] [address]-77 50 mg Orally 2 times a day December 17, 2013 1 tablet Procedures Procedure Coding System Code Date Office Visit, Est Pt., Level 3 CPT-4 21170 Mar 30, 2016 [facility] VISIT ESTABLISHED PATIENT CPT-4 G0467 Mar 30, 2016 Vital Signs Date/Time: Mar 30, 2016 Cardiac Monitoring Heart Rate 84 bpm Weight 241.6 lbs Height 64 in BMI 41.47 Index Blood Pressure Diastolic 80 mmHg Blood Pressure Systolic 114 mmHg Results Name Result Date Reference Range Unit Abnormality Flag Mammogram, Bilateral Screening Summary Purpose [employer] Submission
--- OUTSIDE RECORDS SUMMARY | 2017-07-22 06:59 | XMS REPORT ---
Author Author RASHEED RAHMAN Organization [employer] Address Unknown Phone Unavailable Care Team Providers Care Glass Blower Helper Name Role Phone RASHEED RAHMAN CP Unavailable [...] 719.41 Active Problem Other psoriasis 696.1 Active Medications No Known Medications Results No Known Results Summary Purpose [employer] Submission
--- OUTSIDE RECORDS SUMMARY | 2017-07-22 06:59 | XMS REPORT ---
Author Author RASHEED RAHMAN [facility] Address [address] [place] [address] Care Team Providers Care Animal Cop Name Role Phone RASHEED RAHMAN Unavailable PROBLEMS Type Condition ICD9-CM Code QJC40-UE Code Onset Dates Condition Status SNOMED Code Problem Fatigue R53.83 Active 81639381 Problem Upper respiratory tract infection, unspecified type J06.9 Active 08091004 Problem Varicose veins of both lower extremities I83.93 Active 80183612 Problem Neuropathy G62.9 Active 340547671 Problem Essential hypertension I10 Active 61701466 Problem Other chronic pain G89.29 Active 30468068 Problem Mild persistent asthma without complication J45.30 Active 258341600 Problem On home oxygen therapy Z99.81 Active 210126795557 Problem Mild chronic obstructive pulmonary disease J44.9 Active 148357976 Problem Snoring R06.83 Active 78118511 Problem Impaired circulation I99.9 Active 81055148 Problem Dysthymic disorder F34.1 Active 20078605 Problem MRSA (methicillin resistant staph aureus) culture positive Z22.322 Active 199580576 Problem 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 Active 15157179 Problem History of illicit drug use Z87.898 Active 355900877 Problem Panic disorder without agoraphobia F41.0 Active 75184261 ALLERGIES No Information SOCIAL HISTORY Never Assessed PLAN OF CARE VITAL SIGNS MEDICATIONS Medication Instructions Dosage Frequency Start Date End Date Duration Status Ibuprofen 200 MG Orally every 6 hrs 1 - 4 tablets as needed for pain 6h Jul, 30 days Active Wound Dressings - Externally every 3 days completely cover wound with pad Jul, 30 days [...]
--- OUTSIDE RECORDS SUMMARY | 2017-07-22 06:59 | XMS REPORT ---
Author Author RASHEED RAHMAN [facility] Address [address] [place] [address] Care Team Providers Care Staff Air Tactical Officer Name Role Phone RASHEED RAHMAN Unavailable PROBLEMS Type Condition ICD9-CM Code [id number] Code Onset Dates Condition Status SNOMED Code Problem Fatigue R53.83 Active 92897750 Problem Upper respiratory tract infection, unspecified type J06.9 Active 73677939 Problem Varicose veins of both lower extremities I83.93 Active 97354115 Problem Neuropathy G62.9 Active 510063871 Problem Essential hypertension I10 Active 14691542 Problem Other chronic pain G89.29 Active 97237534 Problem Mild persistent asthma without complication J45.30 Active 170655992 Problem On home oxygen therapy Z99.81 Active 290205695058 Problem Mild chronic obstructive pulmonary disease J44.9 Active 142180528 Problem Snoring R06.83 Active 17737203 Problem Impaired circulation I99.9 Active 11527873 Problem Dysthymic disorder F34.1 Active 34963966 Problem MRSA (methicillin resistant staph aureus) culture positive Z22.322 Active 849303550 Problem 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 Active 55025414 Problem History of illicit drug use Z87.898 Active 100910802 Problem Panic disorder without agoraphobia F41.0 Active 20906267 ALLERGIES No Information SOCIAL HISTORY Never Assessed [...]
--- OUTSIDE RECORDS SUMMARY | 2017-07-22 06:59 | XMS REPORT ---
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
--- OUTSIDE RECORDS SUMMARY | 2017-07-22 07:00 | XMS REPORT ---
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 Assessment Varicose veins of both lower extremities I83.93 Active Problem Pain in joint, shoulder region 719.41 Active Assessment Panic disorder without agoraphobia F41.0 Active Problem Other psoriasis 696.1 Active Medications Medication Code System Code Instructions Start Date End Date Status Dosage Xanax [facility] [address]-54 0.25 MG Orally 2 times a day August 31, 2015 1 tablet Symbicort [facility] [address]-23 160-4.5 mcg/actuation Inhalation Twice a day September 02, 2014 2 puffs Anoro Ellipta [facility] [address]-89 62.5-25 MCG/INH Inhalation Once a day Jul 30, 2015 September 28, 2015 1 puff HydrOXYzine HCl [facility] [address]-16 50 mg Orally 2 times a day December 17, 2013 1 tablet Prozac [facility] [address]-62 20 mg Orally Once a day September 02, 2015 1 capsule in the morning Ranitidine HCl [facility] 44917617719 150 MG 1 Tablet by Oral route 2 times per day Estradiol [facility] 24602030443 0.5 MG TAKE 1 TABLET BY MOUTH DAILY Procedures Procedure Coding System Code Date Office Visit, Est Pt., Level 3 CPT-4 35106 September 28, 2015 [facility] VISIT ESTABLISHED PATIENT CPT-4 G0467 September 28, 2015 Vital Signs Date/Time: September 28, 2015 Temperature 98.1 F Weight 243.5 lbs Height 64 in BMI 41.79 Index Blood Pressure Diastolic 70 mmHg Blood Pressure Systolic 112 mmHg Cardiac Monitoring Heart Rate 92 bpm Results No Known Results Summary Purpose [employer] Submission
--- OUTSIDE RECORDS SUMMARY | 2017-07-22 07:00 | XMS REPORT ---
Author Author RASHEED RAHMAN Organization [employer] Address Unknown Phone Unavailable Care Team Providers Care Service Delivery Manager Name Role Phone RASHEED RAHMAN CP Unavailable Allergies No Known Allergies Problems Problem Type Condition Code Onset Dates Condition Status Problem Unspecified breast screening V76.10 Active Problem Impaired circulation I99.9 Active Problem Allergic rhinitis due to pollen 477.0 Active Problem Upper respiratory tract infection, unspecified type J06.9 Active Problem Varicose veins of both lower extremities I83.93 Active Problem Mild persistent asthma without complication J45.30 Active Problem 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 Active Problem Dysthymic disorder F34.1 Active Problem Fatigue R53.83 Active Problem Panic disorder without agoraphobia F41.0 Active Problem 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
--- OUTSIDE RECORDS SUMMARY | 2017-07-22 07:00 | XMS REPORT ---
Author Author RASHEED RAHMAN [facility] [employer] Address Unknown Phone Unavailable Care Team Providers Care Consumer Safety Inspector Name Role Phone RASHEED RAHMAN CP Unavailable [...] Problem Unspecified breast screening V76.10 Active Medications No Known Medications Results No Known Results Summary Purpose [employer] Submission
--- OUTSIDE RECORDS SUMMARY | 2017-07-22 07:00 | XMS REPORT ---
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 Problem Allergic rhinitis due to pollen 477.0 Active Problem Unspecified breast screening V76.10 Active Problem 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 Problem Pain in joint, shoulder region 719.41 Active Problem 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
--- OUTSIDE RECORDS SUMMARY | 2017-07-22 07:04 | XMS REPORT | Continuity of Care Document ---
Author Author [facility] Address Unknown Phone Unavailable Allergies Active Description Code Type Severity Reaction Onset Reported/Identified Relationship to Patient Clinical Status Yes codeine [id number] Drug Allergy Mild N/A 05/27/2008 Yes codeine Drug Allergy N/A N/A 08/10/2008 Yes codeine Drug Allergy 08/10/2008 Yes bees OA N/A N/A 12/14/2008 Yes bees OA 12/14/2008 Yes Bactrim DS 800-160 mg tablet Drug Allergy N/A N/A 01/06/2014 Yes sulfamethoxazole [id number] Drug Allergy Severe N/A 03/04/2014 Yes trimethoprim [id number] Drug Allergy Severe N/A 03/04/2014 Yes hydrocodone-acetaminophen 10-325 mg tablet Drug Allergy N/A N/A 2014 Yes bee venom (honey bee) [id number] Drug Allergy Unknown N/A 09/16/2014 Yes venom-honey bee [id number] Drug Allergy Unknown N/A 09/16/2014 Yes codeine [id number] Drug Allergy Severe ANAPHYLAXIS BUT 11/11/2014 Medications There is no data. 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 05/10/1453 SOSA RESENDIZ MD, Ot F15.10 OTHER STIMULANT ABUSE, UNCOMPLICATED 05/10/1453 SOSA RESENDIZ MD, Ot L03.818 CELLULITIS OF OTHER SITES 05/10/1453 SOSA RESENDIZ MD, Ot L97.122 NON-PRESSURE CHRONIC ULCER OF LEFT THIGH 01/10/2008 RASHEED RAHMAN APRN 724.5 Backache Unspecified 01/10/2008 724.5 Backache Unspecified 01/10/2008 RASHEED RAHMAN APRN 724.5 Backache Unspecified 01/10/2008 724.5 Backache Unspecified 01/10/2008 724.5 Backache Unspecified 01/10/2008 JOSIAH QUALITY IMPROVEMENT COORDINATOR, RASHEED S 724.5 Backache Unspecified 01/10/2008 JOSIAH QUALITY IMPROVEMENT COORDINATOR, RASHEED S 724.5 Backache Unspecified 01/10/2008 JOSIAH QUALITY IMPROVEMENT COORDINATOR, RASHEED S 724.5 Backache Unspecified 01/10/2008 JOSIAH QUALITY IMPROVEMENT COORDINATOR, RASHEED S 724.5 Backache Unspecified 01/10/2008 JOSIAH QUALITY IMPROVEMENT COORDINATOR, RASHEED S 724.5 Backache Unspecified 01/10/2008 BYRON ESCOTO, AMINA Marr 724.5 Backache Unspecified 01/10/2008 JACK YUAN DO K 724.5 Backache Unspecified 01/10/2008 JOSIAH QUALITY IMPROVEMENT COORDINATOR, RASHEED S 724.5 Backache Unspecified 01/10/2008 NAKIA RAHMAN APRNNDA S 724.5 Backache Unspecified 01/10/2008 BERTHA ANAYA APRNA L 724.5 Backache Unspecified 01/10/2008 JOSIAH QUALITY IMPROVEMENT COORDINATOR, RASHEED S 724.5 Backache Unspecified 01/10/2008 NAKIA RAHMAN APRNNDA S 724.5 Backache Unspecified 01/10/2008 INDER YUAN DOA K 724.5 Backache Unspecified 01/10/2008 JOSIAH QUALITY IMPROVEMENT COORDINATOR, RASHEED S 724.5 Backache Unspecified 01/10/2008 NAKIA RAHMAN APRNNDA S 724.5 Backache Unspecified 01/10/2008 ARIAS GRAJEDA MD 724.5 Backache Unspecified 01/10/2008 JOSIAH QUALITY IMPROVEMENT COORDINATOR, RASHEED S 724.5 Backache Unspecified 01/10/2008 JOSIAH QUALITY IMPROVEMENT COORDINATOR, RASHEED S 724.5 Backache Unspecified 01/10/2008 INDER YUAN DOA K 724.5 Backache Unspecified 01/10/2008 JOSIAH QUALITY IMPROVEMENT COORDINATOR, RASHEED S 724.5 Backache Unspecified 01/10/2008 JOSIAH QUALITY IMPROVEMENT COORDINATORNAKIA LockwoodNDA S 724.5 Backache Unspecified 01/10/2008 JOSIAH QUALITY IMPROVEMENT COORDINATOR, RASHEED S 724.5 Backache Unspecified 02/18/2008 JOSIAH QUALITY IMPROVEMENT COORDINATOR, RASHEED S 729.1 MYALGIA AND MYOSITIS UNSPECIFIED 02/18/2008 729.1 MYALGIA AND MYOSITIS UNSPECIFIED 02/18/2008 JOSIAH QUALITY IMPROVEMENT COORDINATOR, RASHEED S 729.1 MYALGIA AND MYOSITIS UNSPECIFIED 02/18/2008 729.1 MYALGIA AND MYOSITIS UNSPECIFIED 02/18/2008 729.1 MYALGIA AND MYOSITIS UNSPECIFIED 02/18/2008 JOSIAH QUALITY IMPROVEMENT COORDINATOR, RASHEED S 729.1 MYALGIA AND MYOSITIS UNSPECIFIED 02/18/2008 JOSIAH QUALITY IMPROVEMENT COORDINATOR, RASHEED S 729.1 MYALGIA AND MYOSITIS UNSPECIFIED 02/18/2008 JOSIAH QUALITY IMPROVEMENT COORDINATOR, RASHEED S 729.1 MYALGIA AND MYOSITIS UNSPECIFIED 02/18/2008 NAKIA RAHMAN APRNNDA S 729.1 MYALGIA AND MYOSITIS UNSPECIFIED 02/18/2008 JOSIAH LERNER, RASHEED S 729.1 MYALGIA AND MYOSITIS UNSPECIFIED 02/18/2008 BYRON ESCOTO, AMINA Marr 729.1 MYALGIA AND MYOSITIS UNSPECIFIED 02/18/2008 JACK YUAN DO 729.1 MYALGIA AND MYOSITIS UNSPECIFIED 02/18/2008 JOSIAH LERNER, RASHEED S 729.1 MYALGIA AND MYOSITIS UNSPECIFIED 02/18/2008 JOSIAH LERNER RASHEED S 729.1 MYALGIA AND MYOSITIS UNSPECIFIED 02/18/2008 NANCY ANAYA APRN 729.1 MYALGIA AND MYOSITIS UNSPECIFIED 02/18/2008 JOSIAH LERNER RASHEED S 729.1 MYALGIA AND MYOSITIS UNSPECIFIED 02/18/2008 JOSIAH QUALITY IMPROVEMENT COORDINATOR, RASHEED S 729.1 MYALGIA AND MYOSITIS UNSPECIFIED 02/18/2008 JACK YUAN DO K 729.1 MYALGIA AND MYOSITIS UNSPECIFIED 02/18/2008 JOSIAH LERNER RASHEED S 729.1 MYALGIA AND MYOSITIS UNSPECIFIED 02/18/2008 JOSIAH QUALITY IMPROVEMENT COORDINATOR, RASHEED S 729.1 MYALGIA AND MYOSITIS UNSPECIFIED 02/18/2008 NICCI ESCOTO, ARIAS 729.1 MYALGIA AND MYOSITIS UNSPECIFIED 02/18/2008 JOSIAH QUALITY IMPROVEMENT COORDINATOR, RASHEED S 729.1 MYALGIA AND MYOSITIS UNSPECIFIED 02/18/2008 JOSIAH QUALITY IMPROVEMENT COORDINATOR, RASHEED S 729.1 MYALGIA AND MYOSITIS UNSPECIFIED 02/18/2008 JACK YUAN DO 729.1 MYALGIA AND MYOSITIS UNSPECIFIED 02/18/2008 JOSIAH QUALITY IMPROVEMENT COORDINATOR, RASHEED S 729.1 MYALGIA AND MYOSITIS UNSPECIFIED 02/18/2008 JOSIAH QUALITY IMPROVEMENT COORDINATOR, RASHEED S 729.1 MYALGIA AND MYOSITIS UNSPECIFIED 02/18/2008 JOSIAH QUALITY IMPROVEMENT COORDINATOR, RASHEED S 729.1 MYALGIA AND MYOSITIS UNSPECIFIED 06/22/2008 JOSIAH QUALITY IMPROVEMENT COORDINATOR, RASHEED S 782.1 Rash 06/22/2008 782.1 Rash 06/22/2008 JOSIAH QUALITY IMPROVEMENT COORDINATOR, RASHEED S 782.1 Rash 06/22/2008 782.1 Rash 06/22/2008 782.1 Rash 06/22/2008 JOSIAH QUALITY IMPROVEMENT COORDINATOR, RASHEED S 782.1 Rash 06/22/2008 JOSIAH QUALITY IMPROVEMENT COORDINATOR, RASHEED S 782.1 Rash 06/22/2008 JOSIAH QUALITY IMPROVEMENT COORDINATOR, RASHEED S 782.1 Rash 06/22/2008 JOSIAH QUALITY IMPROVEMENT COORDINATOR, RASHEED S 782.1 Rash 06/22/2008 JOSIAH QUALITY IMPROVEMENT COORDINATOR, RASHEED S 782.1 Rash 06/22/2008 BYRON ESCOTO, AMINA Marr 782.1 Rash 06/22/2008 JACK YUAN DO 782.1 Rash 06/22/2008 JOSIAH QUALITY IMPROVEMENT COORDINATOR, RASHEED S 782.1 Rash 06/22/2008 JOSIAH QUALITY IMPROVEMENT COORDINATOR, RASHEED S 782.1 Rash 06/22/2008 MADEvan QUALITY IMPROVEMENT COORDINATOR, NANCY L 782.1 Rash 06/22/2008 JOSIAH QUALITY IMPROVEMENT COORDINATOR, RASHEED S 782.1 Rash 06/22/2008 JOSIAH QUALITY IMPROVEMENT COORDINATOR, RASHEED S 782.1 Rash 06/22/2008 YUAN DO, JACK K 782.1 Rash 06/22/2008 JOSIAH QUALITY IMPROVEMENT COORDINATOR, RASHEED S 782.1 Rash 06/22/2008 JOSIAH QUALITY IMPROVEMENT COORDINATOR, RASHEED S 782.1 Rash 06/22/2008 ARIAS GRAJEDA MD 782.1 Rash 06/22/2008 JOSIAH QUALITY IMPROVEMENT COORDINATOR, RASHEED S 782.1 Rash 06/22/2008 JOSIAH QUALITY IMPROVEMENT COORDINATOR, RASHEED S 782.1 Rash 06/22/2008 YUAN DO, JACK K 782.1 Rash 06/22/2008 JOSIAH QUALITY IMPROVEMENT COORDINATOR, RASHEED S 782.1 Rash 06/22/2008 JOSIAH QUALITY IMPROVEMENT COORDINATOR, RASHEED S 782.1 Rash 06/22/2008 JOSIAH QUALITY IMPROVEMENT COORDINATOR, RASHEED S 782.1 Rash 08/10/2008 JOSIAH QUALITY IMPROVEMENT COORDINATOR, RASHEED S 708.9 Unspecified Urticaria 08/10/2008 708.9 Unspecified Urticaria 08/10/2008 JOSIAH QUALITY IMPROVEMENT COORDINATOR, RASHEED S 708.9 Unspecified Urticaria 08/10/2008 708.9 Unspecified Urticaria 08/10/2008 708.9 Unspecified Urticaria 08/10/2008 JOSIAH QUALITY IMPROVEMENT COORDINATOR, RASHEED S 708.9 Unspecified Urticaria 08/10/2008 JOSIAH QUALITY IMPROVEMENT COORDINATOR, RASHEED S 708.9 Unspecified Urticaria 08/10/2008 JOSIAH QUALITY IMPROVEMENT COORDINATOR, RASHEED S 708.9 Unspecified Urticaria 08/10/2008 JOSIAH QUALITY IMPROVEMENT COORDINATOR, RASHEED S 708.9 Unspecified Urticaria 08/10/2008 JOSIAH QUALITY IMPROVEMENT COORDINATOR, RASHEED S 708.9 Unspecified Urticaria 08/10/2008 BYRON ESCOTO, AMINA Marr 708.9 Unspecified Urticaria 08/10/2008 YUAN DO, JACK K 708.9 Unspecified Urticaria 08/10/2008 JOSIAH QUALITY IMPROVEMENT COORDINATOR, RASHEED S 708.9 Unspecified Urticaria 08/10/2008 JOSIAH QUALITY IMPROVEMENT COORDINATOR, RASHEED S 708.9 Unspecified Urticaria 08/10/2008 JACLYN QUALITY IMPROVEMENT COORDINATOR, NANCY Gordon 708.9 Unspecified Urticaria 08/10/2008 JOSIAH QUALITY IMPROVEMENT COORDINATOR, RASHEED S 708.9 Unspecified Urticaria 08/10/2008 JOSIAH QUALITY IMPROVEMENT COORDINATOR, RASHEED S 708.9 Unspecified Urticaria 08/10/2008 YUAN DO, JACK K 708.9 Unspecified Urticaria 08/10/2008 JOSIAH QUALITY IMPROVEMENT COORDINATOR, RASHEED S 708.9 Unspecified Urticaria 08/10/2008 JOSIAH QUALITY IMPROVEMENT COORDINATOR, RASHEED S 708.9 Unspecified Urticaria 08/10/2008 NICCI ESCOTO, ARIAS 708.9 Unspecified Urticaria 08/10/2008 JOSIAH QUALITY IMPROVEMENT COORDINATOR, RASHEED S 708.9 Unspecified Urticaria 08/10/2008 JOSIAH QUALITY IMPROVEMENT COORDINATOR, RASHEED S 708.9 Unspecified Urticaria 08/10/2008 YUAN DO, JACK K 708.9 Unspecified Urticaria 08/10/2008 JOSIAH QUALITY IMPROVEMENT COORDINATOR, RASHEED S 708.9 Unspecified Urticaria 08/10/2008 JOSIAH QUALITY IMPROVEMENT COORDINATOR, RASHEED S 708.9 Unspecified Urticaria 08/10/2008 JOSIAH QUALITY IMPROVEMENT COORDINATOR, RASHEED S 708.9 Unspecified Urticaria 08/17/2008 NAKIA RAHMAN APRNNDA S 465.9 Acute Upper Respiratory Infections Of Unspecified Site 08/17/2008 JOSIAH QUALITY IMPROVEMENT COORDINATORNAKIA LockwoodNDA S 692.81 Dermatitis Due To Cosmetics 08/17/2008 465.9 Acute Upper Respiratory Infections Of Unspecified Site 08/17/2008 692.81 Dermatitis Due To Cosmetics 08/17/2008 JOSIAH COVARRUBIASN RASHEED S 465.9 Acute Upper Respiratory Infections Of Unspecified Site 08/17/2008 JOSIAH QUALITY IMPROVEMENT COORDINATOR, RASHEED S 692.81 Dermatitis Due To Cosmetics 08/17/2008 465.9 Acute Upper Respiratory Infections Of Unspecified Site 08/17/2008 692.81 Dermatitis Due To Cosmetics 08/17/2008 465.9 Acute Upper Respiratory Infections Of Unspecified Site 08/17/2008 692.81 Dermatitis Due To Cosmetics 08/17/2008 NAKIA RAHMAN APRNNDA S 465.9 Acute Upper Respiratory Infections Of Unspecified Site 08/17/2008 JOSIAH QUALITY IMPROVEMENT COORDINATOR, RASHEED S 692.81 Dermatitis Due To Cosmetics 08/17/2008 JOSIAH QUALITY IMPROVEMENT COORDINATOR, RASHEED S 465.9 Acute Upper Respiratory Infections Of Unspecified Site 08/17/2008 JOSIAH QUALITY IMPROVEMENT COORDINATOR, RASHEED S 692.81 Dermatitis Due To Cosmetics 08/17/2008 JOSIAH QUALITY IMPROVEMENT COORDINATOR, RASHEED S 465.9 Acute Upper Respiratory Infections Of Unspecified Site 08/17/2008 JOSIAH QUALITY IMPROVEMENT COORDINATOR, RASHEED S 692.81 Dermatitis Due To Cosmetics 08/17/2008 JOSIAH QUALITY IMPROVEMENT COORDINATOR, RASHEED S 465.9 Acute Upper Respiratory Infections Of Unspecified Site 08/17/2008 JOSIAH QUALITY IMPROVEMENT COORDINATOR, RASHEED S 692.81 Dermatitis Due To Cosmetics 08/17/2008 JOSIAH QUALITY IMPROVEMENT COORDINATOR, RASHEED S 465.9 Acute Upper Respiratory Infections Of Unspecified Site 08/17/2008 JOSIAH QUALITY IMPROVEMENT COORDINATOR, RASHEED S 692.81 Dermatitis Due To Cosmetics 08/17/2008 AMINA MATTHEWS MD M 465.9 Acute Upper Respiratory Infections Of Unspecified Site 08/17/2008 AMINA MATTHEWS MD M 692.81 Dermatitis Due To Cosmetics 08/17/2008 YUAN DO, JACK K 465.9 Acute Upper Respiratory Infections Of Unspecified Site 08/17/2008 YUAN DO, JACK K 692.81 Dermatitis Due To Cosmetics 08/17/2008 JOSIAH QUALITY IMPROVEMENT COORDINATOR, RASHEED S 465.9 Acute Upper Respiratory Infections Of Unspecified Site 08/17/2008 JOSIAH QUALITY IMPROVEMENT COORDINATOR, RASHEED S 692.81 Dermatitis Due To Cosmetics 08/17/2008 JOSIAH QUALITY IMPROVEMENT COORDINATOR, RASHEED S 465.9 Acute Upper Respiratory Infections Of Unspecified Site 08/17/2008 JOSIAH QUALITY IMPROVEMENT COORDINATOR, RASHEED S 692.81 Dermatitis Due To Cosmetics 08/17/2008 MADL QUALITY IMPROVEMENT COORDINATOR, NANCY L 465.9 Acute Upper Respiratory Infections Of Unspecified Site 08/17/2008 MADL QUALITY IMPROVEMENT COORDINATOR, NANCY L 692.81 Dermatitis Due To Cosmetics 08/17/2008 JOSIAH QUALITY IMPROVEMENT COORDINATOR, RASHEED S 465.9 Acute Upper Respiratory Infections Of Unspecified Site 08/17/2008 JOSIAH QUALITY IMPROVEMENT COORDINATOR, RASHEED S 692.81 Dermatitis Due To Cosmetics 08/17/2008 JOSIAH QUALITY IMPROVEMENT COORDINATOR, RASHEED S 465.9 Acute Upper Respiratory Infections Of Unspecified Site 08/17/2008 JOSIAH QUALITY IMPROVEMENT COORDINATOR, RASHEED S 692.81 Dermatitis Due To Cosmetics 08/17/2008 YUAN DO, JACK K 465.9 Acute Upper Respiratory Infections Of Unspecified Site 08/17/2008 YUAN DO, JACK K 692.81 Dermatitis Due To Cosmetics 08/17/2008 JOSIAH QUALITY IMPROVEMENT COORDINATOR, RASHEED S 465.9 Acute Upper Respiratory Infections Of Unspecified Site 08/17/2008 JOSIAH QUALITY IMPROVEMENT COORDINATOR, RASHEED S 692.81 Dermatitis Due To Cosmetics 08/17/2008 JOSIAH QUALITY IMPROVEMENT COORDINATOR, RASHEED S 465.9 Acute Upper Respiratory Infections Of Unspecified Site 08/17/2008 JOSIAH QUALITY IMPROVEMENT COORDINATOR, RASHEED S 692.81 Dermatitis Due To Cosmetics 08/17/2008 ARIAS GRAJEDA MD 465.9 Acute Upper Respiratory Infections Of Unspecified Site 08/17/2008 ARIAS GRAJEDA MD 692.81 Dermatitis Due To Cosmetics 08/17/2008 JOSIAH QUALITY IMPROVEMENT COORDINATOR, RASHEED S 465.9 Acute Upper Respiratory Infections Of Unspecified Site 08/17/2008 JOSIAH QUALITY IMPROVEMENT COORDINATOR, RASHEED S 692.81 Dermatitis Due To Cosmetics 08/17/2008 JOSIAH QUALITY IMPROVEMENT COORDINATOR, RASHEED S 465.9 Acute Upper Respiratory Infections Of Unspecified Site 08/17/2008 JOSIAH QUALITY IMPROVEMENT COORDINATOR, RASHEED S 692.81 Dermatitis Due To Cosmetics 08/17/2008 YUAN DO, JAKC K 465.9 Acute Upper Respiratory Infections Of Unspecified Site 08/17/2008 YUAN DO, JACK K 692.81 Dermatitis Due To Cosmetics 08/17/2008 JOSIAH QUALITY IMPROVEMENT COORDINATOR, RASHEED S 465.9 Acute Upper Respiratory Infections Of Unspecified Site 08/17/2008 JOSIAH QUALITY IMPROVEMENT COORDINATOR, RASHEED S 692.81 Dermatitis Due To Cosmetics 08/17/2008 JOSIAH QUALITY IMPROVEMENT COORDINATOR, RASHEED S 465.9 Acute Upper Respiratory Infections Of Unspecified Site 08/17/2008 JOSIAH QUALITY IMPROVEMENT COORDINATOR, RASHEED S 692.81 Dermatitis Due To Cosmetics 08/17/2008 JOSIAH QUALITY IMPROVEMENT COORDINATOR, RASHEED S 465.9 Acute Upper Respiratory Infections Of Unspecified Site 08/17/2008 JOSIAH QUALITY IMPROVEMENT COORDINATOR, RASHEED S 692.81 Dermatitis Due To Cosmetics 10/27/2008 JOSIAH LERNER, RASHEED S 696.1 Other Psoriasis And Similar Disorders 10/27/2008 JOSIAH QUALITY IMPROVEMENT COORDINATOR, RASHEED S 704.00 Alopecia Unspecified 10/27/2008 696.1 Other Psoriasis And Similar Disorders 10/27/2008 704.00 Alopecia Unspecified 10/27/2008 JOSIAH LERNER, RASHEED S 696.1 Other Psoriasis And Similar Disorders 10/27/2008 JOSIAH QUALITY IMPROVEMENT COORDINATOR, RASHEED S 704.00 Alopecia Unspecified 10/27/2008 696.1 Other Psoriasis And Similar Disorders 10/27/2008 704.00 Alopecia Unspecified 10/27/2008 696.1 Other Psoriasis And Similar Disorders 10/27/2008 704.00 Alopecia Unspecified 10/27/2008 JOSIAH LERNER, RASHEED S 696.1 Other Psoriasis And Similar Disorders 10/27/2008 JOSIAH LERNER, ARSHEED S 704.00 Alopecia Unspecified 10/27/2008 JOSIAH QUALITY IMPROVEMENT COORDINATOR, RASHEED S 696.1 Other Psoriasis And Similar Disorders 10/27/2008 JOSIAH LERNER, RASHEED S 704.00 Alopecia Unspecified 10/27/2008 JOSIAH QUALITY IMPROVEMENT COORDINATOR, RASHEED S 696.1 Other Psoriasis And Similar Disorders 10/27/2008 JOSIAH QUALITY IMPROVEMENT COORDINATOR, RASHEED S 704.00 Alopecia Unspecified 10/27/2008 JOSIAH LERNER, RASHEED S 696.1 Other Psoriasis And Similar Disorders 10/27/2008 JOSIAH QUALITY IMPROVEMENT COORDINATOR, RASHEED S 704.00 Alopecia Unspecified 10/27/2008 JOSIAH QUALITY IMPROVEMENT COORDINATOR, RASHEED S 696.1 Other Psoriasis And Similar Disorders 10/27/2008 JOSIAH LERNER, RASHEED S 704.00 Alopecia Unspecified 10/27/2008 AMINA MATTHEWS MD 696.1 Other Psoriasis And Similar Disorders 10/27/2008 AMINA MATTHEWS MD 704.00 Alopecia Unspecified 10/27/2008 JACK YUAN DO 696.1 Other Psoriasis And Similar Disorders 10/27/2008 YUAN DO, JACK K 704.00 Alopecia Unspecified 10/27/2008 JOSIAH QUALITY IMPROVEMENT COORDINATOR, RASHEED S 696.1 Other Psoriasis And Similar Disorders 10/27/2008 JOSIAH QUALITY IMPROVEMENT COORDINATOR, RASHEED S 704.00 Alopecia Unspecified 10/27/2008 JOSIAH QUALITY IMPROVEMENT COORDINATOR, RASHEED S 696.1 Other Psoriasis And Similar Disorders 10/27/2008 JOSIAH QUALITY IMPROVEMENT COORDINATOR, RASHEED S 704.00 Alopecia Unspecified 10/27/2008 MADL QUALITY IMPROVEMENT COORDINATOR, NANCY L 696.1 Other Psoriasis And Similar Disorders 10/27/2008 MADL QUALITY IMPROVEMENT COORDINATOR, NANCY L 704.00 Alopecia Unspecified 10/27/2008 JOSIAH QUALITY IMPROVEMENT COORDINATOR, RASHEED S 696.1 Other Psoriasis And Similar Disorders 10/27/2008 JOSIAH QUALITY IMPROVEMENT COORDINATOR, RASHEED S 704.00 Alopecia Unspecified 10/27/2008 JOSIAH QUALITY IMPROVEMENT COORDINATOR, RASHEED S 696.1 Other Psoriasis And Similar Disorders 10/27/2008 JOSIAH QUALITY IMPROVEMENT COORDINATOR, RASHEED S 704.00 Alopecia Unspecified 10/27/2008 YUAN DO, JACK K 696.1 Other Psoriasis And Similar Disorders 10/27/2008 YUAN DO, JACK K 704.00 Alopecia Unspecified 10/27/2008 JOSIAH QUALITY IMPROVEMENT COORDINATOR, RASHEED S 696.1 Other Psoriasis And Similar Disorders 10/27/2008 JOSIAH QUALITY IMPROVEMENT COORDINATOR, RASHEED S 704.00 Alopecia Unspecified 10/27/2008 JOSIAH COVARRUBIASN, RASHEED S 696.1 Other Psoriasis And Similar Disorders 10/27/2008 JOSIAH QUALITY IMPROVEMENT COORDINATOR, RASHEED S 704.00 Alopecia Unspecified 10/27/2008 ARIAS GRAEJDA MD 696.1 Other Psoriasis And Similar Disorders 10/27/2008 ARIAS GRAJEDA MD 704.00 Alopecia Unspecified 10/27/2008 JOSIAH COVARRUBIASN, RASHEED S 696.1 Other Psoriasis And Similar Disorders 10/27/2008 JOSIAH QUALITY IMPROVEMENT COORDINATOR, RASHEED S 704.00 Alopecia Unspecified 10/27/2008 JOSIAH COVARRUBIASN, RASHEED S 696.1 Other Psoriasis And Similar Disorders 10/27/2008 JOSIAH QUALITY IMPROVEMENT COORDINATOR, RASHEED S 704.00 Alopecia Unspecified 10/27/2008 YUAN DO JACK K 696.1 Other Psoriasis And Similar Disorders 10/27/2008 KWABENA HDEZ JACK K 704.00 Alopecia Unspecified 10/27/2008 JOSIAH QUALITY IMPROVEMENT COORDINATOR, RASHEED S 696.1 Other Psoriasis And Similar Disorders 10/27/2008 JOSIAH QUALITY IMPROVEMENT COORDINATOR, RASHEED S 704.00 Alopecia Unspecified 10/27/2008 JOSIAH QUALITY IMPROVEMENT COORDINATOR, RASHEED S 696.1 Other Psoriasis And Similar Disorders 10/27/2008 JOSIAH QUALITY IMPROVEMENT COORDINATOR, RASHEED S 704.00 Alopecia Unspecified 10/27/2008 JOSIAH QUALITY IMPROVEMENT COORDINATOR, RASHEED S 696.1 Other Psoriasis And Similar Disorders 10/27/2008 JOSIAH QUALITY IMPROVEMENT COORDINATOR, RASHEED S 704.00 Alopecia Unspecified 12/14/2008 JOSIAH QUALITY IMPROVEMENT COORDINATOR, RASHEED S 682.3 Cellulitis And Abscess Of Upper Arm And Forearm 12/14/2008 682.3 Cellulitis And Abscess Of Upper Arm And Forearm 12/14/2008 JOSIAH QUALITY IMPROVEMENT COORDINATOR, RASHEED S 682.3 Cellulitis And Abscess Of Upper Arm And Forearm 12/14/2008 682.3 Cellulitis And Abscess Of Upper Arm And Forearm 12/14/2008 682.3 Cellulitis And Abscess Of Upper Arm And Forearm 12/14/2008 JOSIAH QUALITY IMPROVEMENT COORDINATOR, RASHEED S 682.3 Cellulitis And Abscess Of Upper Arm And Forearm 12/14/2008 JOSIAH QUALITY IMPROVEMENT COORDINATOR, RASHEED S 682.3 Cellulitis And Abscess Of Upper Arm And Forearm 12/14/2008 JOSIAH QUALITY IMPROVEMENT COORDINATOR, RASHEED S 682.3 Cellulitis And Abscess Of Upper Arm And Forearm 12/14/2008 JOSIAH QUALITY IMPROVEMENT COORDINATOR, RASHEED S 682.3 Cellulitis And Abscess Of Upper Arm And Forearm 12/14/2008 JOSIAH QUALITY IMPROVEMENT COORDINATOR, RASHEED S 682.3 Cellulitis And Abscess Of Upper Arm And Forearm 12/14/2008 BYRON ESCOTO, AMINA Marr 682.3 Cellulitis And Abscess Of Upper Arm And Forearm 12/14/2008 YUAN INDER HDEZA K 682.3 Cellulitis And Abscess Of Upper Arm And Forearm 12/14/2008 JOSIAH QUALITY IMPROVEMENT COORDINATOR, RASHEED S 682.3 Cellulitis And Abscess Of Upper Arm And Forearm 12/14/2008 JOSIAH QUALITY IMPROVEMENT COORDINATOR, RASHEED S 682.3 Cellulitis And Abscess Of Upper Arm And Forearm 12/14/2008 NANCY ANAYA APRN 682.3 Cellulitis And Abscess Of Upper Arm And Forearm 12/14/2008 JOSIAH QUALITY IMPROVEMENT COORDINATOR, RASHEED S 682.3 Cellulitis And Abscess Of Upper Arm And Forearm 12/14/2008 JOSIAH QUALITY IMPROVEMENT COORDINATOR, RASHEED S 682.3 Cellulitis And Abscess Of Upper Arm And Forearm 12/14/2008 JACK YUAN DO 682.3 Cellulitis And Abscess Of Upper Arm And Forearm 12/14/2008 JOSIAH QUALITY IMPROVEMENT COORDINATOR, RASHEED S 682.3 Cellulitis And Abscess Of Upper Arm And Forearm 12/14/2008 JOSIAH QUALITY IMPROVEMENT COORDINATOR, RASHEED S 682.3 Cellulitis And Abscess Of Upper Arm And Forearm 12/14/2008 ARIAS GRAJEDA MD 682.3 Cellulitis And Abscess Of Upper Arm And Forearm 12/14/2008 JOSIAH QUALITY IMPROVEMENT COORDINATOR, RASHEED S 682.3 Cellulitis And Abscess Of Upper Arm And Forearm 12/14/2008 JOSIAH QUALITY IMPROVEMENT COORDINATOR, RASHEED S 682.3 Cellulitis And Abscess Of Upper Arm And Forearm 12/14/2008 JACK YUAN DO K 682.3 Cellulitis And Abscess Of Upper Arm And Forearm 12/14/2008 JOSIAH QUALITY IMPROVEMENT COORDINATOR, RASHEED S 682.3 Cellulitis And Abscess Of Upper Arm And Forearm 12/14/2008 JOSIAH QUALITY IMPROVEMENT COORDINATOR, RASHEED S 682.3 Cellulitis And Abscess Of Upper Arm And Forearm 12/14/2008 JOSIAH QUALITY IMPROVEMENT COORDINATOR, ARSHEED S 682.3 Cellulitis And Abscess Of Upper Arm And Forearm 08/03/2009 JOSIAH QUALITY IMPROVEMENT COORDINATOR, RASHEED S 496 CHRONIC OBSTRUCTIVE PULMONARY DISEASE 08/03/2009 496 CHRONIC OBSTRUCTIVE PULMONARY DISEASE 08/03/2009 JOSIAH QUALITY IMPROVEMENT COORDINATOR, RASHEED S 496 CHRONIC OBSTRUCTIVE PULMONARY DISEASE 08/03/2009 496 CHRONIC OBSTRUCTIVE PULMONARY DISEASE 08/03/2009 496 CHRONIC OBSTRUCTIVE PULMONARY DISEASE 08/03/2009 JOSIAH QUALITY IMPROVEMENT COORDINATOR, RASHEED S 496 CHRONIC OBSTRUCTIVE PULMONARY DISEASE 08/03/2009 JOSIAH QUALITY IMPROVEMENT COORDINATOR, RASHEED S 496 CHRONIC OBSTRUCTIVE PULMONARY DISEASE 08/03/2009 JOSIAH QUALITY IMPROVEMENT COORDINATOR, RASHEED S 496 CHRONIC OBSTRUCTIVE PULMONARY DISEASE 08/03/2009 JOSIAH QUALITY IMPROVEMENT COORDINATOR, RASHEED S 496 CHRONIC OBSTRUCTIVE PULMONARY DISEASE 08/03/2009 JOSIAH QUALITY IMPROVEMENT COORDINATOR, RASHEED S 496 CHRONIC OBSTRUCTIVE PULMONARY DISEASE 08/03/2009 BYRON ESCOTO, AMINA Marr 496 CHRONIC OBSTRUCTIVE PULMONARY DISEASE 08/03/2009 KWABENA DOJACK K 496 CHRONIC OBSTRUCTIVE PULMONARY DISEASE 08/03/2009 JOSIAH QUALITY IMPROVEMENT COORDINATOR, RASHEED S 496 CHRONIC OBSTRUCTIVE PULMONARY DISEASE 08/03/2009 JOSIAH QUALITY IMPROVEMENT COORDINATOR, RASHEED S 496 CHRONIC OBSTRUCTIVE PULMONARY DISEASE 08/03/2009 JACLYN QUALITY IMPROVEMENT COORDINATOR, NANCY Gordon 496 CHRONIC OBSTRUCTIVE PULMONARY DISEASE 08/03/2009 JOSIAH QUALITY IMPROVEMENT COORDINATOR, RASHEED S 496 CHRONIC OBSTRUCTIVE PULMONARY DISEASE 08/03/2009 JOSIAH QUALITY IMPROVEMENT COORDINATOR, RASHEED S 496 CHRONIC OBSTRUCTIVE PULMONARY DISEASE 08/03/2009 KWABENA DOJACK K 496 CHRONIC OBSTRUCTIVE PULMONARY DISEASE 08/03/2009 JOSIAH QUALITY IMPROVEMENT COORDINATOR, RASHEED S 496 CHRONIC OBSTRUCTIVE PULMONARY DISEASE 08/03/2009 JOSIAH QUALITY IMPROVEMENT COORDINATOR, RASHEED S 496 CHRONIC OBSTRUCTIVE PULMONARY DISEASE 08/03/2009 NICCI ESCOTO, ARIAS 496 CHRONIC OBSTRUCTIVE PULMONARY DISEASE 08/03/2009 JOSIAH QUALITY IMPROVEMENT COORDINATOR, RASHEED S 496 CHRONIC OBSTRUCTIVE PULMONARY DISEASE 08/03/2009 JOSIAH QUALITY IMPROVEMENT COORDINATOR, RASHEED S 496 CHRONIC OBSTRUCTIVE PULMONARY DISEASE 08/03/2009 KWABENA DO, JACK K 496 CHRONIC OBSTRUCTIVE PULMONARY DISEASE 08/03/2009 JOSIAH QUALITY IMPROVEMENT COORDINATOR, RASHEED S 496 CHRONIC OBSTRUCTIVE PULMONARY DISEASE 08/03/2009 JOSIAH QUALITY IMPROVEMENT COORDINATOR, RASHEED S 496 CHRONIC OBSTRUCTIVE PULMONARY DISEASE 08/03/2009 JOSIAH QUALITY IMPROVEMENT COORDINATOR, RASHEED S 496 CHRONIC OBSTRUCTIVE PULMONARY DISEASE 04/05/2010 JOSIAH QUALITY IMPROVEMENT COORDINATOR, RASHEED S 535.40 Other Specified Gastritis (without Hemorrhage) 04/05/2010 535.40 Other Specified Gastritis (without Hemorrhage) 04/05/2010 JOSIAH QUALITY IMPROVEMENT COORDINATOR, RASHEED S 535.40 Other Specified Gastritis (without Hemorrhage) 04/05/2010 535.40 Other Specified Gastritis (without Hemorrhage) 04/05/2010 535.40 Other Specified Gastritis (without Hemorrhage) 04/05/2010 JOSIAH QUALITY IMPROVEMENT COORDINATOR, RASHEED S 535.40 Other Specified Gastritis (without Hemorrhage) 04/05/2010 JOSIAH QUALITY IMPROVEMENT COORDINATOR, RASHEED S 535.40 Other Specified Gastritis (without Hemorrhage) 04/05/2010 JOSIAH QUALITY IMPROVEMENT COORDINATOR, RASHEED S 535.40 Other Specified Gastritis (without Hemorrhage) 04/05/2010 JOSIAH QUALITY IMPROVEMENT COORDINATOR, RASHEED S 535.40 Other Specified Gastritis (without Hemorrhage) 04/05/2010 JOSIAH QUALITY IMPROVEMENT COORDINATOR, RASHEED S 535.40 Other Specified Gastritis (without Hemorrhage) 04/05/2010 AMINA MATTHEWS MD 535.40 Other Specified Gastritis (without Hemorrhage) 04/05/2010 JACK YUAN DO 535.40 Other Specified Gastritis (without Hemorrhage) 04/05/2010 JOSIAH QUALITY IMPROVEMENT COORDINATOR, RASHEED S 535.40 Other Specified Gastritis (without Hemorrhage) 04/05/2010 JOSIAH QUALITY IMPROVEMENT COORDINATOR, RASHEED S 535.40 Other Specified Gastritis (without Hemorrhage) 04/05/2010 NANCY ANAYA APRN L 535.40 Other Specified Gastritis (without Hemorrhage) 04/05/2010 JOSIAH QUALITY IMPROVEMENT COORDINATOR, RASHEED S 535.40 Other Specified Gastritis (without Hemorrhage) 04/05/2010 JOSIAH QUALITY IMPROVEMENT COORDINATOR, RASHEED S 535.40 Other Specified Gastritis (without Hemorrhage) 04/05/2010 JACK YUAN DO 535.40 Other Specified Gastritis (without Hemorrhage) 04/05/2010 JOSIAH QUALITY IMPROVEMENT COORDINATOR, RASHEED S 535.40 Other Specified Gastritis (without Hemorrhage) 04/05/2010 JOSIAH QUALITY IMPROVEMENT COORDINATOR, RASHEED S 535.40 Other Specified Gastritis (without Hemorrhage) 04/05/2010 ARIAS GRAJEDA MD 535.40 Other Specified Gastritis (without Hemorrhage) 04/05/2010 JOSIAH QUALITY IMPROVEMENT COORDINATOR, RASHEED S 535.40 Other Specified Gastritis (without Hemorrhage) 04/05/2010 JOSIAH QUALITY IMPROVEMENT COORDINATOR, RASHEED S 535.40 Other Specified Gastritis (without Hemorrhage) 04/05/2010 JACK YUAN DO 535.40 Other Specified Gastritis (without Hemorrhage) 04/05/2010 JOSIAH QUALITY IMPROVEMENT COORDINATOR, RASHEED S 535.40 Other Specified Gastritis (without Hemorrhage) 04/05/2010 JOSIAH QUALITY IMPROVEMENT COORDINATOR, RASHEED S 535.40 Other Specified Gastritis (without Hemorrhage) 04/05/2010 JOSIAH QUALITY IMPROVEMENT COORDINATOR, RASHEED S 535.40 Other Specified Gastritis (without Hemorrhage) 05/23/2010 JOSIAH QUALITY IMPROVEMENT COORDINATOR, RASHEED S V18.0 FAM HX DIABETES MELLITUS 05/23/2010 V18.0 FAM HX DIABETES MELLITUS 05/23/2010 JOSIAH QUALITY IMPROVEMENT COORDINATOR, RASHEED S V18.0 FAM HX DIABETES MELLITUS 05/23/2010 V18.0 FAM HX DIABETES MELLITUS 05/23/2010 V18.0 FAM HX DIABETES MELLITUS 05/23/2010 JOSIAH QUALITY IMPROVEMENT COORDINATOR, RASHEED S V18.0 FAM HX DIABETES MELLITUS 05/23/2010 JOSIAH QUALITY IMPROVEMENT COORDINATOR, RASHEED S V18.0 FAM HX DIABETES MELLITUS 05/23/2010 JOSIAH QUALITY IMPROVEMENT COORDINATOR, RASHEED S V18.0 FAM HX DIABETES MELLITUS 05/23/2010 NAKIA RAHMAN APRNNDA S V18.0 FAM HX DIABETES MELLITUS 05/23/2010 NAKIA RAHMAN APRNNDA S V18.0 FAM HX DIABETES MELLITUS 05/23/2010 AMINA MATTHEWS MD V18.0 FAM HX DIABETES MELLITUS 05/23/2010 YUAN DO JACK K V18.0 FAM HX DIABETES MELLITUS 05/23/2010 JOSIAH LERNER RASHEED S V18.0 FAM HX DIABETES MELLITUS 05/23/2010 NAKIA RAHMAN APRNNDA S V18.0 FAM HX DIABETES MELLITUS 05/23/2010 [facility] NANCY LERNER L V18.0 FAM HX DIABETES MELLITUS 05/23/2010 JOSIAH LERNER RASHEED S V18.0 FAM HX DIABETES MELLITUS 05/23/2010 JOSIAH QUALITY IMPROVEMENT COORDINATORNAKIARASHEED S V18.0 FAM HX DIABETES MELLITUS 05/23/2010 YUAN DO, JACK K V18.0 FAM HX DIABETES MELLITUS 05/23/2010 JOSIAH QUALITY IMPROVEMENT COORDINATOR RASHEED S V18.0 FAM HX DIABETES MELLITUS 05/23/2010 JOSIAH QUALITY IMPROVEMENT COORDINATOR, RASHEED S V18.0 FAM HX DIABETES MELLITUS 05/23/2010 ARIAS GRAJEDA MD V18.0 FAM HX DIABETES MELLITUS 05/23/2010 JOSIAH LERNER RASHEED S V18.0 FAM HX DIABETES MELLITUS 05/23/2010 NAKIA RAHMAN APRNNDA S V18.0 FAM HX DIABETES MELLITUS 05/23/2010 JACK YUAN DO V18.0 FAM HX DIABETES MELLITUS 05/23/2010 JOSIAH LERNER, RASHEED S V18.0 FAM HX DIABETES MELLITUS 05/23/2010 NAKIA RAHMAN APRNNDA S V18.0 FAM HX DIABETES MELLITUS 05/23/2010 NAKIA RAHMAN APRNNDA S V18.0 FAM HX DIABETES MELLITUS 10/25/2010 NAKIA RAHMAN APRNNDA S 780.57 Unspecified Sleep Apnea 10/25/2010 NAKIA RAHMAN APRNNDA S 780.79 Fatigue 10/25/2010 NAKIA RAHMAN APRNNDA S 787.91 Diarrhea 10/25/2010 NAKIA RAHMAN APRNNDA S 788.1 Dysuria 10/25/2010 NAKIA RAHMAN APRNNDA S 799.02 Hypoxemia 10/25/2010 780.57 Unspecified Sleep Apnea 10/25/2010 780.79 Fatigue 10/25/2010 787.91 Diarrhea 10/25/2010 788.1 Dysuria 10/25/2010 799.02 Hypoxemia 10/25/2010 NAKIA RAHMAN APRNNDA S 780.57 Unspecified Sleep Apnea 10/25/2010 NAKIA RAHMAN APRNNDA S 780.79 Fatigue 10/25/2010 NAKIA RAHMAN APRNNDA S 787.91 Diarrhea 10/25/2010 NAKIA RAHMAN APRNNDA S 788.1 Dysuria 10/25/2010 NAKIA RAHMAN APRNNDA S 799.02 Hypoxemia 10/25/2010 780.57 Unspecified Sleep Apnea 10/25/2010 780.79 Fatigue 10/25/2010 787.91 Diarrhea 10/25/2010 788.1 Dysuria 10/25/2010 799.02 Hypoxemia 10/25/2010 780.57 Unspecified Sleep Apnea 10/25/2010 780.79 Fatigue 10/25/2010 787.91 Diarrhea 10/25/2010 788.1 Dysuria 10/25/2010 799.02 Hypoxemia 10/25/2010 NAKIA RAHMAN APRNNDA S 780.57 Unspecified Sleep Apnea 10/25/2010 JOSIAH QUALITY IMPROVEMENT COORDINATOR, RASHEED S 780.79 Fatigue 10/25/2010 JOSIAH QUALITY IMPROVEMENT COORDINATOR, RASHEED S 787.91 Diarrhea 10/25/2010 JOSIAH QUALITY IMPROVEMENT COORDINATOR, RASHEED S 788.1 Dysuria 10/25/2010 JOSIAH QUALITY IMPROVEMENT COORDINATOR, RASHEED S 799.02 Hypoxemia 10/25/2010 JOSIAH QUALITY IMPROVEMENT COORDINATOR, RASHEED S 780.57 Unspecified Sleep Apnea 10/25/2010 JOSIAH QUALITY IMPROVEMENT COORDINATOR, RASHEED S 780.79 Fatigue 10/25/2010 JOSIAH QUALITY IMPROVEMENT COORDINATOR, RASHEED S 787.91 Diarrhea 10/25/2010 JOSIAH QUALITY IMPROVEMENT COORDINATOR, RASHEED S 788.1 Dysuria 10/25/2010 JOSIAH QUALITY IMPROVEMENT COORDINATOR, RASHEED S 799.02 Hypoxemia 10/25/2010 JOSIAH QUALITY IMPROVEMENT COORDINATOR, RASHEED S 780.57 Unspecified Sleep Apnea 10/25/2010 JOSIAH QUALITY IMPROVEMENT COORDINATOR, RASHEED S 780.79 Fatigue 10/25/2010 JOSIAH QUALITY IMPROVEMENT COORDINATOR, RASHEED S 787.91 Diarrhea 10/25/2010 JOSIAH QUALITY IMPROVEMENT COORDINATOR, RASHEED S 788.1 Dysuria 10/25/2010 JOSIAH QUALITY IMPROVEMENT COORDINATOR, RASHEED S 799.02 Hypoxemia 10/25/2010 JOSIAH QUALITY IMPROVEMENT COORDINATOR, RASHEED S 780.57 Unspecified Sleep Apnea 10/25/2010 JOSIAH QUALITY IMPROVEMENT COORDINATOR, RASHEED S 780.79 Fatigue 10/25/2010 JOSIAH QUALITY IMPROVEMENT COORDINATOR, RASHEED S 787.91 Diarrhea 10/25/2010 JOSIAH QUALITY IMPROVEMENT COORDINATOR, RASHEED S 788.1 Dysuria 10/25/2010 JOSIAH QUALITY IMPROVEMENT COORDINATOR, RASHEED S 799.02 Hypoxemia 10/25/2010 JOSIAH QUALITY IMPROVEMENT COORDINATOR, RASHEED S 780.57 Unspecified Sleep Apnea 10/25/2010 JOSIAH QUALITY IMPROVEMENT COORDINATOR, RASHEED S 780.79 Fatigue 10/25/2010 JOSIAH QUALITY IMPROVEMENT COORDINATOR, RASHEED S 787.91 Diarrhea 10/25/2010 JOSIAH QUALITY IMPROVEMENT COORDINATOR, RASHEED S 788.1 Dysuria 10/25/2010 JOSIAH QUALITY IMPROVEMENT COORDINATOR, RASHEED S 799.02 Hypoxemia 10/25/2010 BYRON ESCOTO, AMINA Marr 780.57 Unspecified Sleep Apnea 10/25/2010 AMINA MATTHEWS MD 780.79 Fatigue 10/25/2010 AMINA MATTHEWS MD 787.91 Diarrhea 10/25/2010 AMINA MATTHEWS MD 788.1 Dysuria 10/25/2010 AMINA MATTHEWS MD 799.02 Hypoxemia 10/25/2010 YUAN DO, JACK K 780.57 Unspecified Sleep Apnea 10/25/2010 YUAN DO, JACK K 780.79 Fatigue 10/25/2010 YUAN DO, JACK K 787.91 Diarrhea 10/25/2010 YUAN DO, JACK K 788.1 Dysuria 10/25/2010 YUAN DO, JACK K 799.02 Hypoxemia 10/25/2010 JOSIAH QUALITY IMPROVEMENT COORDINATOR, RASHEED S 780.57 Unspecified Sleep Apnea 10/25/2010 JOSIAH QUALITY IMPROVEMENT COORDINATOR, RASHEED S 780.79 Fatigue 10/25/2010 JOSIAH QUALITY IMPROVEMENT COORDINATOR, RASHEED S 787.91 Diarrhea 10/25/2010 JOSIAH QUALITY IMPROVEMENT COORDINATOR, RASHEED S 788.1 Dysuria 10/25/2010 JOSIAH QUALITY IMPROVEMENT COORDINATOR, RASHEED S 799.02 Hypoxemia 10/25/2010 JOSIAH QUALITY IMPROVEMENT COORDINATOR, RASHEED S 780.57 Unspecified Sleep Apnea 10/25/2010 JOSIAH QUALITY IMPROVEMENT COORDINATOR, RASHEED S 780.79 Fatigue 10/25/2010 JOSIAH QUALITY IMPROVEMENT COORDINATOR, RASHEED S 787.91 Diarrhea 10/25/2010 JOSIAH QUALITY IMPROVEMENT COORDINATOR, RASHEED S 788.1 Dysuria 10/25/2010 JOSIAH QUALITY IMPROVEMENT COORDINATOR, RASHEED S 799.02 Hypoxemia 10/25/2010 MADL QUALITY IMPROVEMENT COORDINATOR, NANCY L 780.57 Unspecified Sleep Apnea 10/25/2010 MADL QUALITY IMPROVEMENT COORDINATOR, NANCY L 780.79 Fatigue 10/25/2010 MADL QUALITY IMPROVEMENT COORDINATOR, NANCY L 787.91 Diarrhea 10/25/2010 MADL QUALITY IMPROVEMENT COORDINATOR, NANCY L 788.1 Dysuria 10/25/2010 MADL QUALITY IMPROVEMENT COORDINATOR, NANCY L 799.02 Hypoxemia 10/25/2010 JOSIAH QUALITY IMPROVEMENT COORDINATOR, RASHEED S 780.57 Unspecified Sleep Apnea 10/25/2010 JOSIAH QUALITY IMPROVEMENT COORDINATOR, RASHEED S 780.79 Fatigue 10/25/2010 JOSIAH QUALITY IMPROVEMENT COORDINATOR, RASHEED S 787.91 Diarrhea 10/25/2010 JOSIAH QUALITY IMPROVEMENT COORDINATOR, RASHEED S 788.1 Dysuria 10/25/2010 JOSIAH QUALITY IMPROVEMENT COORDINATOR, RASHEED S 799.02 Hypoxemia 10/25/2010 JOSIAH QUALITY IMPROVEMENT COORDINATOR, RASHEED S 780.57 Unspecified Sleep Apnea 10/25/2010 JOSIAH QUALITY IMPROVEMENT COORDINATOR, RASHEED S 780.79 Fatigue 10/25/2010 JOSIAH QUALITY IMPROVEMENT COORDINATOR, RASHEED S 787.91 Diarrhea 10/25/2010 JOSIAH QUALITY IMPROVEMENT COORDINATOR, RASHEED S 788.1 Dysuria 10/25/2010 JOSIAH QUALITY IMPROVEMENT COORDINATOR, RASHEED S 799.02 Hypoxemia 10/25/2010 YUAN DO, JACK K 780.57 Unspecified Sleep Apnea 10/25/2010 YUAN DO, JACK K 780.79 Fatigue 10/25/2010 YUAN DO, JACK K 787.91 Diarrhea 10/25/2010 YUAN DO, JACK K 788.1 Dysuria 10/25/2010 YUAN DO, JACK K 799.02 Hypoxemia 10/25/2010 JOSIAH QUALITY IMPROVEMENT COORDINATOR, RASHEED S 780.57 Unspecified Sleep Apnea 10/25/2010 JOSIAH QUALITY IMPROVEMENT COORDINATOR, RASHEED S 780.79 Fatigue 10/25/2010 JOSIAH QUALITY IMPROVEMENT COORDINATOR, RASHEED S 787.91 Diarrhea 10/25/2010 JOSIAH QUALITY IMPROVEMENT COORDINATOR, RASHEED S 788.1 Dysuria 10/25/2010 JOSIAH QUALITY IMPROVEMENT COORDINATOR, RASHEED S 799.02 Hypoxemia 10/25/2010 JOSIAH QUALITY IMPROVEMENT COORDINATOR, RASHEED S 780.57 Unspecified Sleep Apnea 10/25/2010 JOSIAH QUALITY IMPROVEMENT COORDINATOR, RAHSEED S 780.79 Fatigue 10/25/2010 JOSIAH QUALITY IMPROVEMENT COORDINATOR, RASHEED S 787.91 Diarrhea 10/25/2010 JOSIAH QUALITY IMPROVEMENT COORDINATOR, RASHEED S 788.1 Dysuria 10/25/2010 JOSIAH QUALITY IMPROVEMENT COORDINATOR, RASHEED S 799.02 Hypoxemia 10/25/2010 NICCI ESCOTO, ARIAS 780.57 Unspecified Sleep Apnea 10/25/2010 ARIAS GRAJEDA MD 780.79 Fatigue 10/25/2010 ARIAS GRAJEDA MD 787.91 Diarrhea 10/25/2010 ARIAS GRAJEDA MD 788.1 Dysuria 10/25/2010 ARIAS GRAJEDA MD 799.02 Hypoxemia 10/25/2010 JOSIAH QUALITY IMPROVEMENT COORDINATOR, RASHEED S 780.57 Unspecified Sleep Apnea 10/25/2010 JOSIAH QUALITY IMPROVEMENT COORDINATOR, RASHEED S 780.79 Fatigue 10/25/2010 JOSIAH QUALITY IMPROVEMENT COORDINATOR, RASHEED S 787.91 Diarrhea 10/25/2010 JOSIAH QUALITY IMPROVEMENT COORDINATOR, RASHEED S 788.1 Dysuria 10/25/2010 JOSIAH QUALITY IMPROVEMENT COORDINATOR, RASHEED S 799.02 Hypoxemia 10/25/2010 JOSIAH QUALITY IMPROVEMENT COORDINATOR, RASHEED S 780.57 Unspecified Sleep Apnea 10/25/2010 JOSIAH QUALITY IMPROVEMENT COORDINATOR, RASHEED S 780.79 Fatigue 10/25/2010 JOSIAH QUALITY IMPROVEMENT COORDINATOR, RASHEED S 787.91 Diarrhea 10/25/2010 JOSIAH QUALITY IMPROVEMENT COORDINATOR, RASHEED S 788.1 Dysuria 10/25/2010 JOSIAH QUALITY IMPROVEMENT COORDINATOR, RASHEED S 799.02 Hypoxemia 10/25/2010 YUAN DO, JACK K 780.57 Unspecified Sleep Apnea 10/25/2010 YUAN DO, JACK K 780.79 Fatigue 10/25/2010 YUAN DO, JACK K 787.91 Diarrhea 10/25/2010 YUAN DO, JACK K 788.1 Dysuria 10/25/2010 YUAN DO, JACK K 799.02 Hypoxemia 10/25/2010 JOSIAH QUALITY IMPROVEMENT COORDINATOR, RASHEED S 780.57 Unspecified Sleep Apnea 10/25/2010 JOSIAH QUALITY IMPROVEMENT COORDINATOR, RASHEED S 780.79 Fatigue 10/25/2010 JOSIAH QUALITY IMPROVEMENT COORDINATOR, RASHEED S 787.91 Diarrhea 10/25/2010 JOSIAH QUALITY IMPROVEMENT COORDINATOR, RASHEED S 788.1 Dysuria 10/25/2010 JOSIAH QUALITY IMPROVEMENT COORDINATOR, RASHEED S 799.02 Hypoxemia 10/25/2010 JOSIAH QUALITY IMPROVEMENT COORDINATOR, RASHEED S 780.57 Unspecified Sleep Apnea 10/25/2010 JOSIAH QUALITY IMPROVEMENT COORDINATOR, RASHEED S 780.79 Fatigue 10/25/2010 JOSIAH QUALITY IMPROVEMENT COORDINATOR, RASHEED S 787.91 Diarrhea 10/25/2010 JOSIAH QUALITY IMPROVEMENT COORDINATOR, RASHEED S 788.1 Dysuria 10/25/2010 JOSIAH QUALITY IMPROVEMENT COORDINATOR, RASHEED S 799.02 Hypoxemia 10/25/2010 JOSIAH QUALITY IMPROVEMENT COORDINATOR, RASHEED S 780.57 Unspecified Sleep Apnea 10/25/2010 JOSIAH QUALITY IMPROVEMENT COORDINATOR, RASHEED S 780.79 Fatigue 10/25/2010 JOSIAH QUALITY IMPROVEMENT COORDINATOR, RASHEED S 787.91 Diarrhea 10/25/2010 JOSIAH QUALITY IMPROVEMENT COORDINATOR, RASHEED S 788.1 Dysuria 10/25/2010 JOSIAH QUALITY IMPROVEMENT COORDINATOR, RASHEED S 799.02 Hypoxemia 12/20/2010 JOSIAH QUALITY IMPROVEMENT COORDINATOR, RASHEED S 719.46 joint pain, localized in the knee 12/20/2010 719.46 joint pain, localized in the knee 12/20/2010 JOSIAH QUALITY IMPROVEMENT COORDINATOR, RASHEED S 719.46 joint pain, localized in the knee 12/20/2010 719.46 joint pain, localized in the knee 12/20/2010 719.46 joint pain, localized in the knee 12/20/2010 JOSIAH QUALITY IMPROVEMENT COORDINATOR, RASHEED S 719.46 joint pain, localized in the knee 12/20/2010 JOSIAH QUALITY IMPROVEMENT COORDINATOR, RASHEED S 719.46 joint pain, localized in the knee 12/20/2010 JOSIAH QUALITY IMPROVEMENT COORDINATOR, RASHEED S 719.46 joint pain, localized in the knee 12/20/2010 JOSIAH QUALITY IMPROVEMENT COORDINATOR, RASHEED S 719.46 joint pain, localized in the knee 12/20/2010 JOSIAH QUALITY IMPROVEMENT COORDINATOR, RASHEED S 719.46 joint pain, localized in the knee 12/20/2010 AMINA MATTHEWS MD 719.46 joint pain, localized in the knee 12/20/2010 JACK YUAN DO 719.46 joint pain, localized in the knee 12/20/2010 JOSIAH QUALITY IMPROVEMENT COORDINATOR, RASHEED S 719.46 joint pain, localized in the knee 12/20/2010 JOSIAH QUALITY IMPROVEMENT COORDINATOR, RASHEED S 719.46 joint pain, localized in the knee 12/20/2010 NANCY ANAYA APRN 719.46 joint pain, localized in the knee 12/20/2010 JOSIAH QUALITY IMPROVEMENT COORDINATOR, RASHEED S 719.46 joint pain, localized in the knee 12/20/2010 JOSIAH QUALITY IMPROVEMENT COORDINATOR, RASHEED S 719.46 joint pain, localized in the knee 12/20/2010 JACK YUAN DO K 719.46 joint pain, localized in the knee 12/20/2010 JOSIAH QUALITY IMPROVEMENT COORDINATOR, RASHEED S 719.46 joint pain, localized in the knee 12/20/2010 JOSIAH QUALITY IMPROVEMENT COORDINATOR, RASHEED S 719.46 joint pain, localized in the knee 12/20/2010 NICCI ESCOTO, ARIAS 719.46 joint pain, localized in the knee 12/20/2010 JOSIAH QUALITY IMPROVEMENT COORDINATOR, RASHEED S 719.46 joint pain, localized in the knee 12/20/2010 JOSIAH QUALITY IMPROVEMENT COORDINATOR, RASHEED S 719.46 joint pain, localized in the knee 12/20/2010 JACK YUAN DO 719.46 joint pain, localized in the knee 12/20/2010 JOSIAH QUALITY IMPROVEMENT COORDINATOR, RASHEED S 719.46 joint pain, localized in the knee 12/20/2010 JOSIAH QUALITY IMPROVEMENT COORDINATOR, RASHEED S 719.46 joint pain, localized in the knee 12/20/2010 JOSIAH QUALITY IMPROVEMENT COORDINATOR, RASHEED S 719.46 joint pain, localized in the knee 03/28/2011 NICOLA RAHMAN APRNA S 401.1 ESSENTIAL HYPERTENSION BENIGN 03/28/2011 NICOLA RAHMAN APRNA S 724.2 LUMBAGO 03/28/2011 NICOLA RAHMAN APRNA S V04.81 Flu Dx (3 Yrs And Above, Im) 03/28/2011 401.1 ESSENTIAL HYPERTENSION BENIGN 03/28/2011 724.2 LUMBAGO 03/28/2011 V04.81 Flu Dx (3 Yrs And Above, Im) 03/28/2011 NICOLA RAHMAN APRNA S 401.1 ESSENTIAL HYPERTENSION BENIGN 03/28/2011 NAKIA RAHMAN APRNNDA S 724.2 LUMBAGO 03/28/2011 NAKIA RAHMAN APRNNDA S V04.81 Flu Dx (3 Yrs And Above, Im) 03/28/2011 401.1 ESSENTIAL HYPERTENSION BENIGN 03/28/2011 724.2 LUMBAGO 03/28/2011 V04.81 Flu Dx (3 Yrs And Above, Im) 03/28/2011 401.1 ESSENTIAL HYPERTENSION BENIGN 03/28/2011 724.2 LUMBAGO 03/28/2011 V04.81 Flu Dx (3 Yrs And Above, Im) 03/28/2011 JOSIAHPONCHO COVARRUBIASN, RASHEED S 401.1 ESSENTIAL HYPERTENSION BENIGN 03/28/2011 JOSIAH QUALITY IMPROVEMENT COORDINATOR, RASHEED S 724.2 LUMBAGO 03/28/2011 JOSIAH QUALITY IMPROVEMENT COORDINATOR, RASHEED S V04.81 Flu Dx (3 Yrs And Above, Im) 03/28/2011 JOSIAH QUALITY IMPROVEMENT COORDINATOR, RASHEED S 401.1 ESSENTIAL HYPERTENSION BENIGN 03/28/2011 JOSIAH QUALITY IMPROVEMENT COORDINATOR, RASHEED S 724.2 LUMBAGO 03/28/2011 JOSIAH QUALITY IMPROVEMENT COORDINATOR, RASHEED S V04.81 Flu Dx (3 Yrs And Above, Im) 03/28/2011 JOSIAH QUALITY IMPROVEMENT COORDINATOR, RASHEED S 401.1 ESSENTIAL HYPERTENSION BENIGN 03/28/2011 JOSIAH QUALITY IMPROVEMENT COORDINATOR, RASHEED S 724.2 LUMBAGO 03/28/2011 JOSIAHPONCHO COVARRUBIASN, RASHEED S V04.81 Flu Dx (3 Yrs And Above, Im) 03/28/2011 JOSIAH QUALITY IMPROVEMENT COORDINATOR, RASHEED S 401.1 ESSENTIAL HYPERTENSION BENIGN 03/28/2011 JOSIAH QUALITY IMPROVEMENT COORDINATOR, RASHEED S 724.2 LUMBAGO 03/28/2011 JOSIAH QUALITY IMPROVEMENT COORDINATOR, RASHEED S V04.81 Flu Dx (3 Yrs And Above, Im) 03/28/2011 JOSIAH QUALITY IMPROVEMENT COORDINATOR, RASHEED S 401.1 ESSENTIAL HYPERTENSION BENIGN 03/28/2011 JOSIAH QUALITY IMPROVEMENT COORDINATOR, RASHEED S 724.2 LUMBAGO 03/28/2011 JOSIAH QUALITY IMPROVEMENT COORDINATOR, RASHEED S V04.81 Flu Dx (3 Yrs And Above, Im) 03/28/2011 AMINA MATTHEWS MD 401.1 ESSENTIAL HYPERTENSION BENIGN 03/28/2011 AMINA MATTHEWS MD 724.2 LUMBAGO 03/28/2011 AMINA MATTHEWS MD V04.81 Flu Dx (3 Yrs And Above, Im) 03/28/2011 JACK YUAN DO 401.1 ESSENTIAL HYPERTENSION BENIGN 03/28/2011 YUAN DO, JACK K 724.2 LUMBAGO 03/28/2011 YUAN DO, JACK K V04.81 Flu Dx (3 Yrs And Above, Im) 03/28/2011 JOSIAH QUALITY IMPROVEMENT COORDINATOR, RASHEED S 401.1 ESSENTIAL HYPERTENSION BENIGN 03/28/2011 JOSIAH QUALITY IMPROVEMENT COORDINATOR, RASHEED S 724.2 LUMBAGO 03/28/2011 JOSIAH QUALITY IMPROVEMENT COORDINATOR, RASHEED S V04.81 Flu Dx (3 Yrs And Above, Im) 03/28/2011 JOSIAH QUALITY IMPROVEMENT COORDINATOR, RASHEED S 401.1 ESSENTIAL HYPERTENSION BENIGN 03/28/2011 JOSIAH QUALITY IMPROVEMENT COORDINATOR, RASHEED S 724.2 LUMBAGO 03/28/2011 JOSIAH QUALITY IMPROVEMENT COORDINATOR, RASHEED S V04.81 Flu Dx (3 Yrs And Above, Im) 03/28/2011 MADL QUALITY IMPROVEMENT COORDINATOR, NANCY L 401.1 ESSENTIAL HYPERTENSION BENIGN 03/28/2011 MADL QUALITY IMPROVEMENT COORDINATOR, NANCY L 724.2 LUMBAGO 03/28/2011 MADL QUALITY IMPROVEMENT COORDINATOR, NANCY L V04.81 Flu Dx (3 Yrs And Above, Im) 03/28/2011 JOSIAH QUALITY IMPROVEMENT COORDINATOR, RASHEED S 401.1 ESSENTIAL HYPERTENSION BENIGN 03/28/2011 JOSIAH QUALITY IMPROVEMENT COORDINATOR, RASHEED S 724.2 LUMBAGO 03/28/2011 JOSIAH QUALITY IMPROVEMENT COORDINATOR, RASHEED S V04.81 Flu Dx (3 Yrs And Above, Im) 03/28/2011 JOSIAH QUALITY IMPROVEMENT COORDINATOR, RASHEED S 401.1 ESSENTIAL HYPERTENSION BENIGN 03/28/2011 JOSIAH QUALITY IMPROVEMENT COORDINATOR, RASHEED S 724.2 LUMBAGO 03/28/2011 JOSIAH QUALITY IMPROVEMENT COORDINATOR, RASHEED S V04.81 Flu Dx (3 Yrs And Above, Im) 03/28/2011 YUAN DO, JACK K 401.1 ESSENTIAL HYPERTENSION BENIGN 03/28/2011 YUAN DO, JACK K 724.2 LUMBAGO 03/28/2011 YUAN DO, JACK K V04.81 Flu Dx (3 Yrs And Above, Im) 03/28/2011 JOSIAH QUALITY IMPROVEMENT COORDINATOR, RASHEED S 401.1 ESSENTIAL HYPERTENSION BENIGN 03/28/2011 JOSIAH QUALITY IMPROVEMENT COORDINATOR, RASHEED S 724.2 LUMBAGO 03/28/2011 JOSIAH LERNER RASHEED S V04.81 Flu Dx (3 Yrs And Above, Im) 03/28/2011 JOSIAH LERNER RASHEED S 401.1 ESSENTIAL HYPERTENSION BENIGN 03/28/2011 JOSIAH QUALITY IMPROVEMENT COORDINATOR, RASHEED S 724.2 LUMBAGO 03/28/2011 JOSIAH COVARRUBIASN, RASHEED S V04.81 Flu Dx (3 Yrs And Above, Im) 03/28/2011 ARIAS GRAJEDA MD 401.1 ESSENTIAL HYPERTENSION BENIGN 03/28/2011 ARIAS GRAJEDA MD 724.2 [place]UM[place] 03/28/2011 ARIAS GRAJEDA MD V04.81 Flu Dx (3 Yrs And Above, Im) 03/28/2011 NAKIA RAHMAN APRNNDA S 401.1 ESSENTIAL HYPERTENSION BENIGN 03/28/2011 NICOLA RAHMAN APRNA S 724.2 [place] 03/28/2011 NAKIA RAHMAN APRNNDA S V04.81 Flu Dx (3 Yrs And Above, Im) 03/28/2011 NICOLA RAHMAN APRNA S 401.1 ESSENTIAL HYPERTENSION BENIGN 03/28/2011 JOSIAH LERNER RASHEED S 724.2 [place] 03/28/2011 NAKIA RAHMAN APRNNDA S V04.81 Flu Dx (3 Yrs And Above, Im) 03/28/2011 YUAN DO, JACK K 401.1 ESSENTIAL HYPERTENSION BENIGN 03/28/2011 YUAN DO, JACK K 724.2 [place]UM[place] 03/28/2011 YUAN DO, JACK K V04.81 Flu Dx (3 Yrs And Above, Im) 03/28/2011 JOSIAH LERNER RASHEED S 401.1 ESSENTIAL HYPERTENSION BENIGN 03/28/2011 JOSIAH LERNER, RASHEED S 724.2 [place] 03/28/2011 JOSIAH LERNER RASHEED S V04.81 Flu Dx (3 Yrs And Above, Im) 03/28/2011 JOSIAH LERNER RASHEED S 401.1 ESSENTIAL HYPERTENSION BENIGN 03/28/2011 JOSIAH LERNER RASHEED S 724.2 [place] 03/28/2011 JOSIAH LERNER RASHEED S V04.81 Flu Dx (3 Yrs And Above, Im) 03/28/2011 JOSIAH QUALITY IMPROVEMENT COORDINATOR, RASHEED S 401.1 ESSENTIAL HYPERTENSION BENIGN 03/28/2011 JOSIAH QUALITY IMPROVEMENT COORDINATOR, RASHEED S 724.2 [place] 03/28/2011 JOSIAH QUALITY IMPROVEMENT COORDINATOR, RASHEED S V04.81 Flu Dx (3 Yrs And Above, Im) 07/20/2011 JOSIAH QUALITY IMPROVEMENT COORDINATOR, RASHEED S 786.05 SHORTNESS OF BREATH 07/20/2011 786.05 SHORTNESS OF BREATH 07/20/2011 JOSIAH QUALITY IMPROVEMENT COORDINATOR, RASHEED S 786.05 SHORTNESS OF BREATH 07/20/2011 786.05 SHORTNESS OF BREATH 07/20/2011 786.05 SHORTNESS OF BREATH 07/20/2011 JOSIAH QUALITY IMPROVEMENT COORDINATOR, RASHEED S 786.05 SHORTNESS OF BREATH 07/20/2011 JOSIAH QUALITY IMPROVEMENT COORDINATOR, RASHEED S 786.05 SHORTNESS OF BREATH 07/20/2011 JOSIAH QUALITY IMPROVEMENT COORDINATOR, RASHEED S 786.05 SHORTNESS OF BREATH 07/20/2011 JOSIAH QUALITY IMPROVEMENT COORDINATOR, RASHEED S 786.05 SHORTNESS OF BREATH 07/20/2011 JOSIAH QUALITY IMPROVEMENT COORDINATOR, RASHEED S 786.05 SHORTNESS OF BREATH 07/20/2011 BYRON ESCOTO, AMINA Marr 786.05 SHORTNESS OF BREATH 07/20/2011 JACK YUAN DO 786.05 SHORTNESS OF BREATH 07/20/2011 JOSIAH QUALITY IMPROVEMENT COORDINATOR, RASHEED S 786.05 SHORTNESS OF BREATH 07/20/2011 JOSIAH QUALITY IMPROVEMENT COORDINATOR, RASHEED S 786.05 SHORTNESS OF BREATH 07/20/2011 NANCY ANAYA APRN L 786.05 SHORTNESS OF BREATH 07/20/2011 JOSIAH QUALITY IMPROVEMENT COORDINATOR, RASHEED S 786.05 SHORTNESS OF BREATH 07/20/2011 JOSIAH QUALITY IMPROVEMENT COORDINATOR, RASHEED S 786.05 SHORTNESS OF BREATH 07/20/2011 JACK YUAN DO 786.05 SHORTNESS OF BREATH 07/20/2011 JOSIAH QUALITY IMPROVEMENT COORDINATOR, RASHEED S 786.05 SHORTNESS OF BREATH 07/20/2011 JOSIAH QUALITY IMPROVEMENT COORDINATOR, RASHEED S 786.05 SHORTNESS OF BREATH 07/20/2011 NICCI ESCOTO, ARIAS 786.05 SHORTNESS OF BREATH 07/20/2011 RASHEED RAHMAN APRN S 786.05 SHORTNESS OF BREATH 07/20/2011 RASHEED RAHMAN APRN S 786.05 SHORTNESS OF BREATH 07/20/2011 KWABENA HDEZ JACK Christianne 786.05 SHORTNESS OF BREATH 07/20/2011 RASHEED RAHMAN APRN S 786.05 SHORTNESS OF BREATH 07/20/2011 RASHEED RAHMAN APRN S 786.05 SHORTNESS OF BREATH 07/20/2011 NICOLA RAHMAN APRNA S 786.05 SHORTNESS OF BREATH 08/15/2011 Ot 272.4 HYPERLIPIDEMIA NEC/NOS 08/15/2011 Ot 276.50 VOLUME DEPLETION, UNSPECIFIED 08/15/2011 Ot 287.5 THROMBOCYTOPENIA NOS 08/15/2011 Ot 305.1 TOBACCO USE DISORDER 08/15/2011 Ot 401.9 HYPERTENSION NOS 08/15/2011 Ot 458.9 HYPOTENSION NOS 08/15/2011 Ot 493.22 CHRONIC OBSTRUCTIVE ASTHMA, W (ACUTE) EX 08/15/2011 Ot 584.9 ACUTE RENAL FAILURE, UNSPECIFIED 08/15/2011 Ot 715.89 OSTEOARTHROSIS-MULT SITE 08/15/2011 Ot 787.91 DIARRHEA 08/15/2011 Ot 790.29 OTHER ABNORMAL GLUCOSE 08/15/2011 Ot E932.0 ADV EFF CORTICOSTEROIDS 08/15/2011 Ot V02.54 CARRIER, SUSP ESPINOSA METHICILLIN RESISTN S 08/24/2011 RASHEED RAHMAN APRN S 041.12 MRSA, METHICILLIN RESISTANT 08/24/2011 NICOLA RAHMAN APRNA S 780.4 dizziness 08/24/2011 NICOLA RAHMAN APRNA S 788.33 URGE AND STRESS INCONTINENCE 08/24/2011 041.12 MRSA, METHICILLIN RESISTANT 08/24/2011 780.4 dizziness 08/24/2011 788.33 URGE AND STRESS INCONTINENCE 08/24/2011 NICOLA RAHMAN APRNA S 041.12 MRSA, METHICILLIN RESISTANT 08/24/2011 NAKIA RAHMAN APRNNDA S 780.4 dizziness 08/24/2011 NAKIA RAHMAN APRNNDA S 788.33 URGE AND STRESS INCONTINENCE 08/24/2011 041.12 MRSA, METHICILLIN RESISTANT 08/24/2011 780.4 dizziness 08/24/2011 788.33 URGE AND STRESS INCONTINENCE 08/24/2011 041.12 MRSA, METHICILLIN RESISTANT 08/24/2011 780.4 dizziness 08/24/2011 788.33 URGE AND STRESS INCONTINENCE 08/24/2011 JOSIAH QUALITY IMPROVEMENT COORDINATOR, RASHEED S 041.12 MRSA, METHICILLIN RESISTANT 08/24/2011 JOSIAH QUALITY IMPROVEMENT COORDINATOR, RASHEED S 780.4 dizziness 08/24/2011 JOSIAH QUALITY IMPROVEMENT COORDINATOR, RASHEED S 788.33 URGE AND STRESS INCONTINENCE 08/24/2011 JOSIAH QUALITY IMPROVEMENT COORDINATOR, RASHEED S 041.12 MRSA, METHICILLIN RESISTANT 08/24/2011 JOSIAH QUALITY IMPROVEMENT COORDINATOR, RASHEED S 780.4 dizziness 08/24/2011 JOSIAH QUALITY IMPROVEMENT COORDINATOR, RASHEED S 788.33 URGE AND STRESS INCONTINENCE 08/24/2011 JOSIAH QUALITY IMPROVEMENT COORDINATOR, RASHEED S 041.12 MRSA, METHICILLIN RESISTANT 08/24/2011 JOSIAH QUALITY IMPROVEMENT COORDINATOR, RASHEED S 780.4 dizziness 08/24/2011 JOSIAH QUALITY IMPROVEMENT COORDINATOR, RASHEED S 788.33 URGE AND STRESS INCONTINENCE 08/24/2011 JOSIAH QUALITY IMPROVEMENT COORDINATOR, RASHEED S 041.12 MRSA, METHICILLIN RESISTANT 08/24/2011 JOSIAH QUALITY IMPROVEMENT COORDINATOR, RASHEED S 780.4 dizziness 08/24/2011 JOSIAH QUALITY IMPROVEMENT COORDINATOR, RASHEED S 788.33 URGE AND STRESS INCONTINENCE 08/24/2011 JOSIAH QUALITY IMPROVEMENT COORDINATOR, RASHEED S 041.12 MRSA, METHICILLIN RESISTANT 08/24/2011 JOSIAH QUALITY IMPROVEMENT COORDINATOR, RASHEED S 780.4 dizziness 08/24/2011 JOSIAH LERNER, RASHEED S 788.33 URGE AND STRESS INCONTINENCE 08/24/2011 AMINA MATTHEWS MD 041.12 MRSA, METHICILLIN RESISTANT 08/24/2011 AMINA MATTHEWS MD 780.4 dizziness 08/24/2011 AMINA MATTHEWS MD 788.33 URGE AND STRESS INCONTINENCE 08/24/2011 YUAN JACK HDEZ K 041.12 MRSA, METHICILLIN RESISTANT 08/24/2011 YUAN DO JACK K 780.4 dizziness 08/24/2011 YUAN DO JACK K 788.33 URGE AND STRESS INCONTINENCE 08/24/2011 JOSIAH LERNER, RASHEED S 041.12 MRSA, METHICILLIN RESISTANT 08/24/2011 JOSIAH QUALITY IMPROVEMENT COORDINATOR, RASHEED S 780.4 DIZZINESS 08/24/2011 JOSIAH QUALITY IMPROVEMENT COORDINATOR, RASHEED S 788.33 URGE AND STRESS INCONTINENCE 08/24/2011 JOSIAH QUALITY IMPROVEMENT COORDINATOR, RASHEED S 041.12 MRSA, METHICILLIN RESISTANT 08/24/2011 JOSIAH QUALITY IMPROVEMENT COORDINATOR, RASHEED S 780.4 DIZZINESS 08/24/2011 JOSIAH QUALITY IMPROVEMENT COORDINATOR, RASHEED S 788.33 URGE AND STRESS INCONTINENCE 08/24/2011 MADL QUALITY IMPROVEMENT COORDINATOR, NANCY L 041.12 MRSA, METHICILLIN RESISTANT 08/24/2011 MADL QUALITY IMPROVEMENT COORDINATOR, NANCY L 780.4 DIZZINESS 08/24/2011 MADL QUALITY IMPROVEMENT COORDINATOR, NANCY L 788.33 URGE AND STRESS INCONTINENCE 08/24/2011 JOSIAH QUALITY IMPROVEMENT COORDINATOR, RASHEED S 041.12 MRSA, METHICILLIN RESISTANT 08/24/2011 JOSIAH QUALITY IMPROVEMENT COORDINATOR, RASHEED S 780.4 DIZZINESS 08/24/2011 JOSIAH QUALITY IMPROVEMENT COORDINATOR, RASHEDE S 788.33 URGE AND STRESS INCONTINENCE 08/24/2011 JOSIAH QUALITY IMPROVEMENT COORDINATOR, RASHEED S 041.12 MRSA, METHICILLIN RESISTANT 08/24/2011 JOSIAH QUALITY IMPROVEMENT COORDINATOR, RASHEED S 780.4 DIZZINESS 08/24/2011 JOSIAH QUALITY IMPROVEMENT COORDINATOR, RASHEED S 788.33 URGE AND STRESS INCONTINENCE 08/24/2011 YUAN DO, JACK K 041.12 MRSA, METHICILLIN RESISTANT 08/24/2011 YUAN DO, JACK K 780.4 DIZZINESS 08/24/2011 YUAN DO, JACK K 788.33 URGE AND STRESS INCONTINENCE 08/24/2011 JOSIAH QUALITY IMPROVEMENT COORDINATOR, RASHEED S 041.12 MRSA, METHICILLIN RESISTANT 08/24/2011 JOSIAH QUALITY IMPROVEMENT COORDINATOR, RASHEED S 780.4 DIZZINESS 08/24/2011 JOSIAH QUALITY IMPROVEMENT COORDINATOR, RASHEED S 788.33 URGE AND STRESS INCONTINENCE 08/24/2011 JOSIAH QUALITY IMPROVEMENT COORDINATOR, RASHEED S 041.12 MRSA, METHICILLIN RESISTANT 08/24/2011 JOSIAH QUALITY IMPROVEMENT COORDINATOR, RASHEED S 780.4 DIZZINESS 08/24/2011 JOSIAH QUALITY IMPROVEMENT COORDINATOR, RASHEED S 788.33 URGE AND STRESS INCONTINENCE 08/24/2011 ARIAS GRAJEDA MD 041.12 MRSA, METHICILLIN RESISTANT 08/24/2011 ARIAS GRAJEDA MD 780.4 DIZZINESS 08/24/2011 ARIAS GRAJEDA MD 788.33 URGE AND STRESS INCONTINENCE 08/24/2011 JOSIAH LERNER, RASHEED S 041.12 MRSA, METHICILLIN RESISTANT 08/24/2011 JOSIAH QUALITY IMPROVEMENT COORDINATOR, RASHEED S 780.4 DIZZINESS 08/24/2011 JOSIAH QUALITY IMPROVEMENT COORDINATOR, RASHEED S 788.33 URGE AND STRESS INCONTINENCE 08/24/2011 JOSIAH LERNER RASHEED S 041.12 MRSA, METHICILLIN RESISTANT 08/24/2011 JOSIAH QUALITY IMPROVEMENT COORDINATOR, RASHEED S 780.4 DIZZINESS 08/24/2011 JOSIAH QUALITY IMPROVEMENT COORDINATOR, RASHEED S 788.33 URGE AND STRESS INCONTINENCE 08/24/2011 YUAN DO JACK K 041.12 MRSA, METHICILLIN RESISTANT 08/24/2011 YUAN DO, JACK K 780.4 DIZZINESS 08/24/2011 YUAN DO, JACK K 788.33 URGE AND STRESS INCONTINENCE 08/24/2011 JOSIAH LERNER, RASHEED S 041.12 MRSA, METHICILLIN RESISTANT 08/24/2011 JOSIAH QUALITY IMPROVEMENT COORDINATOR, RASHEED S 780.4 DIZZINESS 08/24/2011 JOSIAH QUALITY IMPROVEMENT COORDINATOR, RASHEED S 788.33 URGE AND STRESS INCONTINENCE 08/24/2011 JOSIAH QUALITY IMPROVEMENT COORDINATOR, RASHEED S 041.12 MRSA, METHICILLIN RESISTANT 08/24/2011 JOSIAH QUALITY IMPROVEMENT COORDINATOR, RASHEED S 780.4 DIZZINESS 08/24/2011 JOSIAH QUALITY IMPROVEMENT COORDINATOR, RASHEED S 788.33 URGE AND STRESS INCONTINENCE 08/24/2011 JOSIAH LERNER, RASHEED S 041.12 MRSA, METHICILLIN RESISTANT 08/24/2011 JOSIAH QUALITY IMPROVEMENT COORDINATOR, RASHEED S 780.4 DIZZINESS 08/24/2011 JOSIAH QUALITY IMPROVEMENT COORDINATOR, RASHEED S 788.33 URGE AND STRESS INCONTINENCE 10/26/2011 Ot 287.5 THROMBOCYTOPENIA NOS 10/26/2011 Ot 305.1 TOBACCO USE DISORDER 10/26/2011 Ot 327.23 OBSTRUCTIVE SLEEP APNEA (ADULT) (PEDIATR 10/26/2011 Ot 401.9 HYPERTENSION NOS 10/26/2011 Ot 496 CHR AIRWAY OBSTRUCT NEC 10/26/2011 Ot 596.51 HYPERTONICITY OF BLADDER 10/26/2011 Ot 715.36 LOC OSTEOARTH NOS-L/LEG 01/18/2012 Ot V43.65 KNEE JOINT REPLACEMENT STATUS 01/18/2012 Ot V54.81 AFTERCARE FOLLOWING JOINT REPLACEMENT 01/18/2012 Ot V57.1 PHYSICAL THERAPY NEC 04/02/2012 JOSIAH COVARRUBIASN, RASHEED S 079.99 VIRAL SYNDROME 04/02/2012 JOSIAH QUALITY IMPROVEMENT COORDINATOR, RASHEED S 466.0 BRONCHITIS, ACUTE 04/02/2012 079.99 VIRAL SYNDROME 04/02/2012 466.0 BRONCHITIS, ACUTE 04/02/2012 JOSIAH QUALITY IMPROVEMENT COORDINATOR, RASHEED S 079.99 VIRAL SYNDROME 04/02/2012 JOSIAH QUALITY IMPROVEMENT COORDINATOR, RASHEED S 466.0 BRONCHITIS, ACUTE 04/02/2012 079.99 VIRAL SYNDROME 04/02/2012 466.0 BRONCHITIS, ACUTE 04/02/2012 079.99 VIRAL SYNDROME 04/02/2012 466.0 BRONCHITIS, ACUTE 04/02/2012 JOSIAH QUALITY IMPROVEMENT COORDINATOR, RASHEED S 079.99 VIRAL SYNDROME 04/02/2012 JOSIAH COVARRUBIASN, RASHEED S 466.0 BRONCHITIS, ACUTE 04/02/2012 JOSIAH QUALITY IMPROVEMENT COORDINATOR, RASHEED S 079.99 VIRAL SYNDROME 04/02/2012 JOSIAH QUALITY IMPROVEMENT COORDINATOR, RASHEED S 466.0 BRONCHITIS, ACUTE 04/02/2012 JOSIAH QUALITY IMPROVEMENT COORDINATOR, RASHEED S 079.99 VIRAL SYNDROME 04/02/2012 JOSIAH QUALITY IMPROVEMENT COORDINATOR, RASHEED S 466.0 BRONCHITIS, ACUTE 04/02/2012 JOSIAH QUALITY IMPROVEMENT COORDINATOR, RASHEED S 079.99 VIRAL SYNDROME 04/02/2012 JOSIAH COVARRUBIASN, RASHEED S 466.0 BRONCHITIS, ACUTE 04/02/2012 JOSIAH QUALITY IMPROVEMENT COORDINATOR, RASHEED S 079.99 VIRAL SYNDROME 04/02/2012 JOSIAH LERNER, RASHEED S 466.0 BRONCHITIS, ACUTE 04/02/2012 AMINA MATTHEWS MD 079.99 VIRAL SYNDROME 04/02/2012 AMINA MATTHEWS MD 466.0 BRONCHITIS, ACUTE 04/02/2012 YUAN DOJACK K 079.99 VIRAL SYNDROME 04/02/2012 YUAN DOJACK K 466.0 BRONCHITIS, ACUTE 04/02/2012 JOSIAH LERNER, RASHEED S 079.99 VIRAL SYNDROME 04/02/2012 JOSIAH QUALITY IMPROVEMENT COORDINATOR, RASHEED S 466.0 BRONCHITIS, ACUTE 04/02/2012 JOSIAH QUALITY IMPROVEMENT COORDINATOR, RASHEED S 079.99 VIRAL SYNDROME 04/02/2012 JOSIAH QUALITY IMPROVEMENT COORDINATOR, RASHEED S 466.0 BRONCHITIS, ACUTE 04/02/2012 MADL QUALITY IMPROVEMENT COORDINATOR, NANCY L 079.99 VIRAL SYNDROME 04/02/2012 MADL QUALITY IMPROVEMENT COORDINATOR, NANCY L 466.0 BRONCHITIS, ACUTE 04/02/2012 JOSIAH QUALITY IMPROVEMENT COORDINATOR, RASHEED S 079.99 VIRAL SYNDROME 04/02/2012 JOSIAH QUALITY IMPROVEMENT COORDINATOR, RASHEED S 466.0 BRONCHITIS, ACUTE 04/02/2012 JOSIAH QUALITY IMPROVEMENT COORDINATOR, RASHEED S 079.99 VIRAL SYNDROME 04/02/2012 JOSIAH QUALITY IMPROVEMENT COORDINATOR, RASHEED S 466.0 BRONCHITIS, ACUTE 04/02/2012 YUAN DO, JACK K 079.99 VIRAL SYNDROME 04/02/2012 YUAN DO, JACK K 466.0 BRONCHITIS, ACUTE 04/02/2012 JOSIAH QUALITY IMPROVEMENT COORDINATOR, RASHEED S 079.99 VIRAL SYNDROME 04/02/2012 JOSIAH QUALITY IMPROVEMENT COORDINATOR, RASHEED S 466.0 BRONCHITIS, ACUTE 04/02/2012 JOSIAH QUALITY IMPROVEMENT COORDINATOR, RASHEED S 079.99 VIRAL SYNDROME 04/02/2012 JOSIAH QUALITY IMPROVEMENT COORDINATOR, RASHEED S 466.0 BRONCHITIS, ACUTE 04/02/2012 ARIAS GRAJEDA MD 079.99 VIRAL SYNDROME 04/02/2012 ARIAS GRAJEDA MD 466.0 BRONCHITIS, ACUTE 04/02/2012 JOSIAH QUALITY IMPROVEMENT COORDINATOR, RASHEED S 079.99 VIRAL SYNDROME 04/02/2012 JOSIAH QUALITY IMPROVEMENT COORDINATOR, RASHEED S 466.0 BRONCHITIS, ACUTE 04/02/2012 JOSIAH QUALITY IMPROVEMENT COORDINATOR, RASHEED S 079.99 VIRAL SYNDROME 04/02/2012 JOSIAH QUALITY IMPROVEMENT COORDINATOR, RASHEED S 466.0 BRONCHITIS, ACUTE 04/02/2012 YUAN DO, JACK K 079.99 VIRAL SYNDROME 04/02/2012 YUAN DO, JACK K 466.0 BRONCHITIS, ACUTE 04/02/2012 JOSIAH QUALITY IMPROVEMENT COORDINATOR, RASHEED S 079.99 VIRAL SYNDROME 04/02/2012 JOSIAH QUALITY IMPROVEMENT COORDINATOR, RASHEED S 466.0 BRONCHITIS, ACUTE 04/02/2012 JOSIAH QUALITY IMPROVEMENT COORDINATOR, RASHEED S 079.99 VIRAL SYNDROME 04/02/2012 JOSIAH QUALITY IMPROVEMENT COORDINATOR, RASHEED S 466.0 BRONCHITIS, ACUTE 04/02/2012 JOSIAH QUALITY IMPROVEMENT COORDINATOR, RASHEED S 079.99 VIRAL SYNDROME 04/02/2012 JOSIAH QUALITY IMPROVEMENT COORDINATOR, RASHEED S 466.0 BRONCHITIS, ACUTE 01/07/2013 V07.4 HORMONE REPLACEMENT THERAPY (POSTMENOPAUSAL) 01/07/2013 JOSIAH QUALITY IMPROVEMENT COORDINATOR, RASHEED S V07.4 HORMONE REPLACEMENT THERAPY (POSTMENOPAUSAL) 01/07/2013 JOSIAH QUALITY IMPROVEMENT COORDINATOR, RASHEED S V07.4 HORMONE REPLACEMENT THERAPY (POSTMENOPAUSAL) 01/07/2013 JOSIAH QUALITY IMPROVEMENT COORDINATOR, RASHEED S V07.4 HORMONE REPLACEMENT THERAPY (POSTMENOPAUSAL) 01/07/2013 JOSIAH QUALITY IMPROVEMENT COORDINATOR, RASHEED S V07.4 HORMONE REPLACEMENT THERAPY (POSTMENOPAUSAL) 01/07/2013 JOSIAH LERNER, RASHEED S V07.4 HORMONE REPLACEMENT THERAPY (POSTMENOPAUSAL) 01/07/2013 BYRON ESCOTO, AMINA Marr V07.4 HORMONE REPLACEMENT THERAPY (POSTMENOPAUSAL) 01/07/2013 JACK YUAN DO V07.4 HORMONE REPLACEMENT THERAPY (POSTMENOPAUSAL) 01/07/2013 JOSIAH LERNER, RASHEED S V07.4 HORMONE REPLACEMENT THERAPY (POSTMENOPAUSAL) 01/07/2013 JOSIAH LERNER, RASHEED S V07.4 HORMONE REPLACEMENT THERAPY (POSTMENOPAUSAL) 01/07/2013 NANCY ANAYA APRN V07.4 HORMONE REPLACEMENT THERAPY (POSTMENOPAUSAL) 01/07/2013 JOSIAH LERNER, RASHEED S V07.4 HORMONE REPLACEMENT THERAPY (POSTMENOPAUSAL) 01/07/2013 JOSIAH LERNER, RASHEED S V07.4 HORMONE REPLACEMENT THERAPY (POSTMENOPAUSAL) 01/07/2013 JACK YUAN DO V07.4 HORMONE REPLACEMENT THERAPY (POSTMENOPAUSAL) 01/07/2013 JOSIAH LERNER, RASHEED S V07.4 HORMONE REPLACEMENT THERAPY (POSTMENOPAUSAL) 01/07/2013 JOSIAH LERNER, RASHEED S V07.4 HORMONE REPLACEMENT THERAPY (POSTMENOPAUSAL) 01/07/2013 NICCI ESCOTO, ARIAS V07.4 HORMONE REPLACEMENT THERAPY (POSTMENOPAUSAL) 01/07/2013 JOSIAH QUALITY IMPROVEMENT COORDINATOR, RASHEED S V07.4 HORMONE REPLACEMENT THERAPY (POSTMENOPAUSAL) 01/07/2013 JOSIAH QUALITY IMPROVEMENT COORDINATOR, RASHEED S V07.4 HORMONE REPLACEMENT THERAPY (POSTMENOPAUSAL) 01/07/2013 JACK YUAN DO V07.4 HORMONE REPLACEMENT THERAPY (POSTMENOPAUSAL) 01/07/2013 JOSIAH QUALITY IMPROVEMENT COORDINATOR, RASHEED S V07.4 HORMONE REPLACEMENT THERAPY (POSTMENOPAUSAL) 01/07/2013 JOSIAH QUALITY IMPROVEMENT COORDINATOR, RASHEED S V07.4 HORMONE REPLACEMENT THERAPY (POSTMENOPAUSAL) 01/07/2013 JOSIAH QUALITY IMPROVEMENT COORDINATOR, RASHEED S V07.4 HORMONE REPLACEMENT THERAPY (POSTMENOPAUSAL) 06/02/2013 JOSIAH QUALITY IMPROVEMENT COORDINATOR, RASHEED S 696.1 PSORIASIS 06/02/2013 JOSIAH QUALITY IMPROVEMENT COORDINATOR, RASEHED S V73.81 HPV SCREENING 06/02/2013 JOSIAH QUALITY IMPROVEMENT COORDINATOR, RASHEED S V76.10 BREAST CANCER SCREENING 06/02/2013 JOSIAH QUALITY IMPROVEMENT COORDINATOR, RASHEED S V76.2 CERVICAL CANCER SCREENING (PAP SMEAR) 06/02/2013 JOSIAH LERNER RASHEED S 696.1 PSORIASIS 06/02/2013 JOSIAH QUALITY IMPROVEMENT COORDINATOR, RASHEED S V73.81 HPV SCREENING 06/02/2013 JOSIAH QUALITY IMPROVEMENT COORDINATOR, RASHEED S V76.10 BREAST CANCER SCREENING 06/02/2013 JOSIAH QUALITY IMPROVEMENT COORDINATOR, RASHEED S V76.2 CERVICAL CANCER SCREENING (PAP SMEAR) 06/02/2013 JOSIAH QUALITY IMPROVEMENT COORDINATOR, RASHEED S 696.1 PSORIASIS 06/02/2013 JOSIAH LERNER RASHEED S V73.81 HPV SCREENING 06/02/2013 JOSIAH LERNER, RASHEED S V76.10 BREAST CANCER SCREENING 06/02/2013 JOSIAH QUALITY IMPROVEMENT COORDINATOR, RASHEED S V76.2 CERVICAL CANCER SCREENING (PAP SMEAR) 06/02/2013 AMINA MATTHEWS MD 696.1 PSORIASIS 06/02/2013 AMINA MATTHEWS MD V73.81 HPV SCREENING 06/02/2013 AMINA MATTHEWS MD V76.10 BREAST CANCER SCREENING 06/02/2013 AMINA MATTHEWS MD V76.2 CERVICAL CANCER SCREENING (PAP SMEAR) 06/02/2013 YUAN DO, JACK K 696.1 PSORIASIS 06/02/2013 YUAN DO, JACK K V73.81 HPV SCREENING 06/02/2013 YUAN DO, JACK K V76.10 BREAST CANCER SCREENING 06/02/2013 YUAN DO, JACK K V76.2 CERVICAL CANCER SCREENING (PAP SMEAR) 06/02/2013 JOSIAH LERNER, RASHEED S 696.1 PSORIASIS 06/02/2013 JOSIAH QUALITY IMPROVEMENT COORDINATOR, RASHEED S V73.81 HPV SCREENING 06/02/2013 JOSIAH COVARRUBIASN, RASHEED S V76.10 BREAST CANCER SCREENING 06/02/2013 JOSIAH QUALITY IMPROVEMENT COORDINATOR, RASHEED S V76.2 CERVICAL CANCER SCREENING (PAP SMEAR) 06/02/2013 JOSIAH LERNER RASHEED S 696.1 PSORIASIS 06/02/2013 JOSIAH QUALITY IMPROVEMENT COORDINATOR, RASHEED S V73.81 HPV SCREENING 06/02/2013 JOSIAH LERNER, RASHEED S V76.10 BREAST CANCER SCREENING 06/02/2013 JOSIAH LERNER RASHEED S V76.2 CERVICAL CANCER SCREENING (PAP SMEAR) 06/02/2013 MADL QUALITY IMPROVEMENT COORDINATOR, NANCY L 696.1 PSORIASIS 06/02/2013 MADL QUALITY IMPROVEMENT COORDINATOR, NANCY L V73.81 HPV SCREENING 06/02/2013 MADEvan QUALITY IMPROVEMENT COORDINATOR, NANCY L V76.10 BREAST CANCER SCREENING 06/02/2013 MADL QUALITY IMPROVEMENT COORDINATOR, NANCY L V76.2 CERVICAL CANCER SCREENING (PAP SMEAR) 06/02/2013 JOSIAH LERNER RASHEED S 696.1 PSORIASIS 06/02/2013 JOSIAH LERNER, RASHEED S V73.81 HPV SCREENING 06/02/2013 JOSIAH LERNER, RASHEED S V76.10 BREAST CANCER SCREENING 06/02/2013 JOSIAH QUALITY IMPROVEMENT COORDINATOR, RASHEED S V76.2 CERVICAL CANCER SCREENING (PAP SMEAR) 06/02/2013 JOSIAH LERNER RASHEED S 696.1 PSORIASIS 06/02/2013 JOSIAH QUALITY IMPROVEMENT COORDINATOR, RASHEED S V73.81 HPV SCREENING 06/02/2013 JOSIAH QUALITY IMPROVEMENT COORDINATOR, RASHEED S V76.10 BREAST CANCER SCREENING 06/02/2013 JOSIAH LERNER RASHEED S V76.2 CERVICAL CANCER SCREENING (PAP SMEAR) 06/02/2013 YUAN DO, JACK K 696.1 PSORIASIS 06/02/2013 YUAN DO, JACK K V73.81 HPV SCREENING 06/02/2013 YUAN DO, JACK K V76.10 BREAST CANCER SCREENING 06/02/2013 YUAN DO, JACK K V76.2 CERVICAL CANCER SCREENING (PAP SMEAR) 06/02/2013 JOSIAH QUALITY IMPROVEMENT COORDINATOR, RASHEED S 696.1 PSORIASIS 06/02/2013 JOSIAH LERNER RASHEED S V73.81 HPV SCREENING 06/02/2013 JOSIAH QUALITY IMPROVEMENT COORDINATOR, RASHEED S V76.10 BREAST CANCER SCREENING 06/02/2013 JOSIAH QUALITY IMPROVEMENT COORDINATOR, RASHEED S V76.2 CERVICAL CANCER SCREENING (PAP SMEAR) 06/02/2013 JOSIAH LERNER RASHEED S 696.1 PSORIASIS 06/02/2013 JOSIAH LERNER RASHEED S V73.81 HPV SCREENING 06/02/2013 JOSIAH LERNER RASHEED S V76.10 BREAST CANCER SCREENING 06/02/2013 JOSIAH LERNER RASHEED S V76.2 CERVICAL CANCER SCREENING (PAP SMEAR) 06/02/2013 ARIAS GRAJEDA MD 696.1 PSORIASIS 06/02/2013 ARIAS GRAJEDA MD V73.81 HPV SCREENING 06/02/2013 ARIAS GRAJEDA MD V76.10 BREAST CANCER SCREENING 06/02/2013 ARIAS GRAJEDA MD V76.2 CERVICAL CANCER SCREENING (PAP SMEAR) 06/02/2013 JOSIAH LERNER RASHEED S 696.1 PSORIASIS 06/02/2013 JOSIAH LERNER RASHEED S V73.81 HPV SCREENING 06/02/2013 JOSIAH LERNER RASHEED S V76.10 BREAST CANCER SCREENING 06/02/2013 JOSIAH LERNER RASHEED S V76.2 CERVICAL CANCER SCREENING (PAP SMEAR) 06/02/2013 JOSIAH LERNER RASHEED S 696.1 PSORIASIS 06/02/2013 JOSIAH LERNER RASHEED S V73.81 HPV SCREENING 06/02/2013 JOSIAH QUALITY IMPROVEMENT COORDINATOR, RASHEED S V76.10 BREAST CANCER SCREENING 06/02/2013 JOSIAH LERNER RASHEED S V76.2 CERVICAL CANCER SCREENING (PAP SMEAR) 06/02/2013 YUAN DO, JACK K 696.1 PSORIASIS 06/02/2013 YUAN DO JACK K V73.81 HPV SCREENING 06/02/2013 YUAN DO JACK K V76.10 BREAST CANCER SCREENING 06/02/2013 YUAN DO, JACK K V76.2 CERVICAL CANCER SCREENING (PAP SMEAR) 06/02/2013 JOSIAH QUALITY IMPROVEMENT COORDINATOR, RASHEED S 696.1 PSORIASIS 06/02/2013 JOSIAH QUALITY IMPROVEMENT COORDINATOR, RASHEED S V73.81 HPV SCREENING 06/02/2013 JOSIAH QUALITY IMPROVEMENT COORDINATOR, RASHEED S V76.10 BREAST CANCER SCREENING 06/02/2013 JOSIAH QUALITY IMPROVEMENT COORDINATOR, RASHEED S V76.2 CERVICAL CANCER SCREENING (PAP SMEAR) 06/02/2013 JOSIAH QUALITY IMPROVEMENT COORDINATOR, RASHEED S 696.1 PSORIASIS 06/02/2013 JOSIAH QUALITY IMPROVEMENT COORDINATOR, RASHEED S V73.81 HPV SCREENING 06/02/2013 JOSIAH QUALITY IMPROVEMENT COORDINATOR, RASHEED S V76.10 BREAST CANCER SCREENING 06/02/2013 JOSIAH QUALITY IMPROVEMENT COORDINATOR, RASHEED S V76.2 CERVICAL CANCER SCREENING (PAP SMEAR) 06/02/2013 JOSIAH QUALITY IMPROVEMENT COORDINATOR, RASHEED S 696.1 PSORIASIS 06/02/2013 JOSIAH QUALITY IMPROVEMENT COORDINATOR, RASHEED S V73.81 HPV SCREENING 06/02/2013 JOSIAH QUALITY IMPROVEMENT COORDINATOR, RASHEED S V76.10 BREAST CANCER SCREENING 06/02/2013 JOSIAH QUALITY IMPROVEMENT COORDINATOR, RASHEED S V76.2 CERVICAL CANCER SCREENING (PAP SMEAR) 07/03/2013 JOSIAH LERNER RASHEED S 682.6 CELLULITIS AND ABSCESS OF LEG EXCEPT FOOT 07/03/2013 AMINA MATTHEWS MD 682.6 CELLULITIS AND ABSCESS OF LEG EXCEPT FOOT 07/03/2013 JACK YUAN DO 682.6 CELLULITIS AND ABSCESS OF LEG EXCEPT FOOT 07/03/2013 JOSIAH LERNER RASHEED S 682.6 CELLULITIS AND ABSCESS OF LEG EXCEPT FOOT 07/03/2013 JOSIAH LERNER RASHEED S 682.6 CELLULITIS AND ABSCESS OF LEG EXCEPT FOOT 07/03/2013 NANCY ANAYA APRN 682.6 CELLULITIS AND ABSCESS OF LEG EXCEPT FOOT 07/03/2013 JOSIAH QUALITY IMPROVEMENT COORDINATOR, RASHEED S 682.6 CELLULITIS AND ABSCESS OF LEG EXCEPT FOOT 07/03/2013 JOSIAH QUALITY IMPROVEMENT COORDINATOR, RASHEED S 682.6 CELLULITIS AND ABSCESS OF LEG EXCEPT FOOT 07/03/2013 JACK YUAN DO K 682.6 CELLULITIS AND ABSCESS OF LEG EXCEPT FOOT 07/03/2013 JOSIAH QUALITY IMPROVEMENT COORDINATOR, RASHEED S 682.6 CELLULITIS AND ABSCESS OF LEG EXCEPT FOOT 07/03/2013 JOSIAH QUALITY IMPROVEMENT COORDINATOR, RASHEED S 682.6 CELLULITIS AND ABSCESS OF LEG EXCEPT FOOT 07/03/2013 NICCI ESCOTO, ARIAS 682.6 CELLULITIS AND ABSCESS OF LEG EXCEPT FOOT 07/03/2013 JOSIAH QUALITY IMPROVEMENT COORDINATOR, RASHEED S 682.6 CELLULITIS AND ABSCESS OF LEG EXCEPT FOOT 07/03/2013 JOSIAH QUALITY IMPROVEMENT COORDINATOR, RASHEED S 682.6 CELLULITIS AND ABSCESS OF LEG EXCEPT FOOT 07/03/2013 JACK YUAN DO K 682.6 CELLULITIS AND ABSCESS OF LEG EXCEPT FOOT 07/03/2013 JOSIAH QUALITY IMPROVEMENT COORDINATOR, RASHEED S 682.6 CELLULITIS AND ABSCESS OF LEG EXCEPT FOOT 07/03/2013 JOSIAH QUALITY IMPROVEMENT COORDINATOR, RASHEED S 682.6 CELLULITIS AND ABSCESS OF LEG EXCEPT FOOT 07/03/2013 JOSIAH QUALITY IMPROVEMENT COORDINATOR, RASHEED S 682.6 CELLULITIS AND ABSCESS OF LEG EXCEPT FOOT 08/15/2013 BYRON ESCOTO, AMINA Marr 461.9 SINUSITIS ACUTE 08/15/2013 JACK YUAN DO K 461.9 SINUSITIS ACUTE 08/15/2013 JOSIAH QUALITY IMPROVEMENT COORDINATOR, RASHEED S 461.9 SINUSITIS ACUTE 08/15/2013 JOSIAH QUALITY IMPROVEMENT COORDINATOR, RASHEED S 461.9 SINUSITIS ACUTE 08/15/2013 NANCY ANAYA APRN 461.9 SINUSITIS ACUTE 08/15/2013 JOSIAH QUALITY IMPROVEMENT COORDINATOR, RASHEED S 461.9 SINUSITIS ACUTE 08/15/2013 JOSIAH QUALITY IMPROVEMENT COORDINATOR, RASHEED S 461.9 SINUSITIS ACUTE 08/15/2013 JACK YUAN DO K 461.9 SINUSITIS ACUTE 08/15/2013 JOSIAH QUALITY IMPROVEMENT COORDINATOR, RASHEED S 461.9 SINUSITIS ACUTE 08/15/2013 JOSIAH QUALITY IMPROVEMENT COORDINATOR, RASHEED S 461.9 SINUSITIS ACUTE 08/15/2013 NICCI ESCOTO, ARIAS 461.9 SINUSITIS ACUTE 08/15/2013 JOSIAH QUALITY IMPROVEMENT COORDINATOR, RASHEED S 461.9 SINUSITIS ACUTE 08/15/2013 JOSIAH QUALITY IMPROVEMENT COORDINATOR, RASHEED S 461.9 SINUSITIS ACUTE 08/15/2013 KWABENA HDEZ JACK K 461.9 SINUSITIS ACUTE 08/15/2013 JOSIAH QUALITY IMPROVEMENT COORDINATOR, RASHEED S 461.9 SINUSITIS ACUTE 08/15/2013 JOSIAH QUALITY IMPROVEMENT COORDINATOR, RASHEED S 461.9 SINUSITIS ACUTE 08/15/2013 JOSIAH QUALITY IMPROVEMENT COORDINATOR, RASHEED S 461.9 SINUSITIS ACUTE 09/04/2013 YUAN DO JACK K 733.92 CHONDROMALACIA 09/04/2013 JOSIAH QUALITY IMPROVEMENT COORDINATOR, RASHEED S 733.92 CHONDROMALACIA 09/04/2013 JOSIAH COVARRUBIASN, RASHEED S 733.92 CHONDROMALACIA 09/04/2013 JACLYN LERNER, NANCY L 733.92 CHONDROMALACIA 09/04/2013 JOSIAH QUALITY IMPROVEMENT COORDINATOR, RASHEED S 733.92 CHONDROMALACIA 09/04/2013 JOSIAH QUALITY IMPROVEMENT COORDINATOR, RASHEED S 733.92 CHONDROMALACIA 09/04/2013 YUAN DO JACK K 733.92 CHONDROMALACIA 09/04/2013 JOSIAH QUALITY IMPROVEMENT COORDINATOR, RASHEED S 733.92 CHONDROMALACIA 09/04/2013 JOSIAH COVARRUBIASN, RASHEED S 733.92 CHONDROMALACIA 09/04/2013 ARIAS GRAJEDA MD 733.92 CHONDROMALACIA 09/04/2013 JOSIAH QUALITY IMPROVEMENT COORDINATOR, RASHEED S 733.92 CHONDROMALACIA 09/04/2013 JOSIAH QUALITY IMPROVEMENT COORDINATOR, RASHEED S 733.92 CHONDROMALACIA 09/04/2013 KWABENA HDEZ JACK K 733.92 CHONDROMALACIA 09/04/2013 JOSIAH QUALITY IMPROVEMENT COORDINATOR, RASHEED S 733.92 CHONDROMALACIA 09/04/2013 JOSIAH QUALITY IMPROVEMENT COORDINATOR, RASHEED S 733.92 CHONDROMALACIA 09/04/2013 JOSIAH QUALITY IMPROVEMENT COORDINATOR, RASHEED S 733.92 CHONDROMALACIA 09/11/2013 JOSIAH QUALITY IMPROVEMENT COORDINATOR, RASHEED S 477.0 ALLERGIC RHINITIS DUE TO POLLEN 09/11/2013 JOSIAH QUALITY IMPROVEMENT COORDINATOR, RASHEED S 477.0 ALLERGIC RHINITIS DUE TO POLLEN 09/11/2013 MADL QUALITY IMPROVEMENT COORDINATOR, NANCY L 477.0 ALLERGIC RHINITIS DUE TO POLLEN 09/11/2013 JOSIAH QUALITY IMPROVEMENT COORDINATOR, RASHEED S 477.0 ALLERGIC RHINITIS DUE TO POLLEN 09/11/2013 JOSIAH QUALITY IMPROVEMENT COORDINATOR, RASHEED S 477.0 ALLERGIC RHINITIS DUE TO POLLEN 09/11/2013 YUAN DO, JACK K 477.0 ALLERGIC RHINITIS DUE TO POLLEN 09/11/2013 JOSIAH QUALITY IMPROVEMENT COORDINATOR, RASHEED S 477.0 ALLERGIC RHINITIS DUE TO POLLEN 09/11/2013 JOSIAH QUALITY IMPROVEMENT COORDINATOR, RASHEED S 477.0 ALLERGIC RHINITIS DUE TO POLLEN 09/11/2013 ARIAS GRAJEDA MD 477.0 ALLERGIC RHINITIS DUE TO POLLEN 09/11/2013 JOSIAH QUALITY IMPROVEMENT COORDINATOR, RASHEED S 477.0 ALLERGIC RHINITIS DUE TO POLLEN 09/11/2013 JOSIAH QUALITY IMPROVEMENT COORDINATOR, RASHEED S 477.0 ALLERGIC RHINITIS DUE TO POLLEN 09/11/2013 YUAN DO, JACK K 477.0 ALLERGIC RHINITIS DUE TO POLLEN 09/11/2013 JOSIAH QUALITY IMPROVEMENT COORDINATOR, RASHEED S 477.0 ALLERGIC RHINITIS DUE TO POLLEN 09/11/2013 JOSIAH QUALITY IMPROVEMENT COORDINATOR, RASHEED S 477.0 ALLERGIC RHINITIS DUE TO POLLEN 09/11/2013 JOSIAH QUALITY IMPROVEMENT COORDINATOR, RASHEED S 477.0 ALLERGIC RHINITIS DUE TO POLLEN 10/31/2013 DINO TILLMAN POSTMASTER RELIEF Ot 715.36 LOC OSTEOARTH NOS-L/LEG 10/31/2013 DINO TILLMAN POSTMASTER RELIEF Ot 729.89 MUSCSKEL SYMPT LIMB NEC 10/31/2013 DINO TILLMAN POSTMASTER RELIEF Ot 733.92 CHONDROMALACIA 10/31/2013 DINO TILLMAN POSTMASTER RELIEF Ot V43.65 KNEE JOINT REPLACEMENT STATUS 10/31/2013 DINO TILLMAN POSTMASTER RELIEF Ot V54.81 AFTERCARE FOLLOWING JOINT REPLACEMENT 10/31/2013 DINO TILLMAN POSTMASTER RELIEF Ot V57.1 PHYSICAL THERAPY NEC 11/17/2013 MADL QUALITY IMPROVEMENT COORDINATOR, NANCY L 578.1 BLOOD IN STOOL 11/17/2013 MADL QUALITY IMPROVEMENT COORDINATOR, NANCY L 789.06 ABDOMINAL PAIN EPIGASTRIC 11/17/2013 JOSIAH QUALITY IMPROVEMENT COORDINATOR, RASHEED S 578.1 BLOOD IN STOOL 11/17/2013 JOSIAH QUALITY IMPROVEMENT COORDINATOR, RASHEED S 789.06 ABDOMINAL PAIN EPIGASTRIC 11/17/2013 JOSIAH QUALITY IMPROVEMENT COORDINATOR, RASHEED S 578.1 BLOOD IN STOOL 11/17/2013 JOSIAH QUALITY IMPROVEMENT COORDINATOR, RASHEED S 789.06 ABDOMINAL PAIN EPIGASTRIC 11/17/2013 YUAN DO, JACK K 578.1 BLOOD IN STOOL 11/17/2013 YUAN DO, JACK K 789.06 ABDOMINAL PAIN EPIGASTRIC 11/17/2013 JOSIAH QUALITY IMPROVEMENT COORDINATOR, RASHEED S 578.1 BLOOD IN STOOL 11/17/2013 JOSIAH QUALITY IMPROVEMENT COORDINATOR, RASHEED S 789.06 ABDOMINAL PAIN EPIGASTRIC 11/17/2013 JOSIAH QUALITY IMPROVEMENT COORDINATOR, RASHEED S 578.1 BLOOD IN STOOL 11/17/2013 JOSIAH QUALITY IMPROVEMENT COORDINATOR, RASHEED S 789.06 ABDOMINAL PAIN EPIGASTRIC 11/17/2013 ARIAS GRAJEDA MD 578.1 BLOOD IN STOOL 11/17/2013 ARIAS GRAJEDA MD 789.06 ABDOMINAL PAIN EPIGASTRIC 11/17/2013 JOSIAH QUALITY IMPROVEMENT COORDINATOR, RASHEED S 578.1 BLOOD IN STOOL 11/17/2013 JOSIAH QUALITY IMPROVEMENT COORDINATOR, RASHEED S 789.06 ABDOMINAL PAIN EPIGASTRIC 11/17/2013 JOSIAH QUALITY IMPROVEMENT COORDINATOR, RASHEED S 578.1 BLOOD IN STOOL 11/17/2013 JOSIAH QUALITY IMPROVEMENT COORDINATOR, RASHEED S 789.06 ABDOMINAL PAIN EPIGASTRIC 11/17/2013 YUAN DO, JACK K 578.1 BLOOD IN STOOL 11/17/2013 YUAN DO, JACK K 789.06 ABDOMINAL PAIN EPIGASTRIC 11/17/2013 JOSIAH QUALITY IMPROVEMENT COORDINATOR, RASHEED S 578.1 BLOOD IN STOOL 11/17/2013 JOSIAH QUALITY IMPROVEMENT COORDINATOR, RASHEED S 789.06 ABDOMINAL PAIN EPIGASTRIC 11/17/2013 JOSIAH QUALITY IMPROVEMENT COORDINATOR, RASHEED S 578.1 BLOOD IN STOOL 11/17/2013 JOSIAH QUALITY IMPROVEMENT COORDINATOR, RASHEED S 789.06 ABDOMINAL PAIN EPIGASTRIC 11/17/2013 JOSIAH QUALITY IMPROVEMENT COORDINATOR, RASHEED S 578.1 BLOOD IN STOOL 11/17/2013 JOSIAH QUALITY IMPROVEMENT COORDINATOR, RASHEED S 789.06 ABDOMINAL PAIN EPIGASTRIC 12/17/2013 JACK YUAN DO K 354.0 CARPAL TUNNEL SYNDROME 12/17/2013 JOSIAH QUALITY IMPROVEMENT COORDINATOR, RASHEED S 354.0 CARPAL TUNNEL SYNDROME 12/17/2013 JOSIAH QUALITY IMPROVEMENT COORDINATOR, RASHEED S 354.0 CARPAL TUNNEL SYNDROME 12/17/2013 ARIAS GRAJEDA MD 354.0 CARPAL TUNNEL SYNDROME 12/17/2013 JOSIAH QUALITY IMPROVEMENT COORDINATOR, RASHEED S 354.0 CARPAL TUNNEL SYNDROME 12/17/2013 JOSIAH QUALITY IMPROVEMENT COORDINATOR, RASHEED S 354.0 CARPAL TUNNEL SYNDROME 12/17/2013 JACK YUAN DO K 354.0 CARPAL TUNNEL SYNDROME 12/17/2013 JOSIAH QUALITY IMPROVEMENT COORDINATOR, RASHEED S 354.0 CARPAL TUNNEL SYNDROME 12/17/2013 JOSIAH QUALITY IMPROVEMENT COORDINATOR, RASHEED S 354.0 CARPAL TUNNEL SYNDROME 12/17/2013 JOSIAH QUALITY IMPROVEMENT COORDINATOR, RASHEED S 354.0 CARPAL TUNNEL SYNDROME 12/18/2013 JACK YUAN DO K V76.10 BREAST CANCER SCREENING 12/18/2013 JOSIAH COVARRUBIASN, RASHEED S V76.10 BREAST CANCER SCREENING 12/18/2013 JOSIAH LERNER, RASHEED S V76.10 BREAST CANCER SCREENING 12/18/2013 ARIAS GRAJEDA MD V76.10 BREAST CANCER SCREENING 12/18/2013 JOSIAH QUALITY IMPROVEMENT COORDINATOR, RASHEED S V76.10 BREAST CANCER SCREENING 12/18/2013 JOSIAH QUALITY IMPROVEMENT COORDINATOR, RASHEED S V76.10 BREAST CANCER SCREENING 12/18/2013 JACK YUAN DO K V76.10 BREAST CANCER SCREENING 12/18/2013 JOSIAH QUALITY IMPROVEMENT COORDINATOR, RASHEED S V76.10 BREAST CANCER SCREENING 12/18/2013 JOSIAH QUALITY IMPROVEMENT COORDINATOR, RASHEED S V76.10 BREAST CANCER SCREENING 12/18/2013 JOSIAH QUALITY IMPROVEMENT COORDINATOR, RASHEED S V76.10 BREAST CANCER SCREENING 01/05/2014 JOSIAH QUALITY IMPROVEMENT COORDINATOR, RASHEED S 356.9 NEUROPATHY 01/05/2014 JOSIAH QUALITY IMPROVEMENT COORDINATOR, RASHEED S 599.0 URINARY TRACT INFECTION 01/05/2014 JOSIAH QUALITY IMPROVEMENT COORDINATOR, RASHEED S 719.47 PAIN- FOOT 01/05/2014 JOSIAH QUALITY IMPROVEMENT COORDINATOR, RASHEED S 356.9 NEUROPATHY 01/05/2014 JOSIAH QUALITY IMPROVEMENT COORDINATOR, RASHEED S 599.0 URINARY TRACT INFECTION 01/05/2014 JOSIAH QUALITY IMPROVEMENT COORDINATOR, RASHEED S 719.47 PAIN- FOOT 01/05/2014 ARIAS GRAJEDA MD 356.9 NEUROPATHY 01/05/2014 ARIAS GRAJEDA MD 599.0 URINARY TRACT INFECTION 01/05/2014 ARIAS GRAJEDA MD 719.47 PAIN- FOOT 01/05/2014 JOSIAH QUALITY IMPROVEMENT COORDINATOR, RASHEED S 356.9 NEUROPATHY 01/05/2014 JOSIAH QUALITY IMPROVEMENT COORDINATOR, RASHEED S 599.0 URINARY TRACT INFECTION 01/05/2014 JOSIAH QUALITY IMPROVEMENT COORDINATOR, RASHEED S 719.47 PAIN- FOOT 01/05/2014 JOSIAH QUALITY IMPROVEMENT COORDINATOR, RASHEED S 356.9 NEUROPATHY 01/05/2014 JOSIAH QUALITY IMPROVEMENT COORDINATOR, RASHEED S 599.0 URINARY TRACT INFECTION 01/05/2014 JOSIAH QUALITY IMPROVEMENT COORDINATOR, RASHEED S 719.47 PAIN- FOOT 01/05/2014 YUAN DO, JACK K 356.9 NEUROPATHY 01/05/2014 YUAN DO, JACK K 599.0 URINARY TRACT INFECTION 01/05/2014 YUAN DO, JACK K 719.47 PAIN- FOOT 01/05/2014 JOSIAH QUALITY IMPROVEMENT COORDINATOR, RASHEED S 356.9 NEUROPATHY 01/05/2014 JOSIAH QUALITY IMPROVEMENT COORDINATOR, RASHEED S 599.0 URINARY TRACT INFECTION 01/05/2014 JOSIAH QUALITY IMPROVEMENT COORDINATOR, RASHEED S 719.47 PAIN- FOOT 01/05/2014 JOSIAH QUALITY IMPROVEMENT COORDINATOR, RASHEED S 356.9 NEUROPATHY 01/05/2014 JOSIAH QUALITY IMPROVEMENT COORDINATOR, RASHEED S 599.0 URINARY TRACT INFECTION 01/05/2014 JOSIAH QUALITY IMPROVEMENT COORDINATOR, RASHEED S 719.47 PAIN- FOOT 01/05/2014 JOSIAH QUALITY IMPROVEMENT COORDINATOR, RASHEED S 356.9 NEUROPATHY 01/05/2014 JOSIAH QUALITY IMPROVEMENT COORDINATOR, RASHEED S 599.0 URINARY TRACT INFECTION 01/05/2014 JOSIAH QUALITY IMPROVEMENT COORDINATOR, RASHEED S 719.47 PAIN- FOOT 01/30/2014 JAMIE BRASHER MD Ot 211.3 BENIGN NEOPLASM LG BOWEL 01/30/2014 JAMIE BRASHER MD Ot 455.0 INT HEMORRHOID W/O COMPL 01/30/2014 JAMIE BRASHER MD Ot 455.3 EXT HEMORRHOID W/O COMPL 01/30/2014 JAMIE BRASHER MD Ot 562.10 DIVERTICULOSIS COLON (W/O MENT OF HEMORR 01/30/2014 JAMIE BRASHER MD Ot 564.00 UNSPEC CONSTIPATION 01/30/2014 JAMIE BRASHER MD Ot 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 02/02/2014 ARIAS GRAJEDA MD 211.9 POLYP- GI 02/02/2014 ARIAS GRAJEDA MD 455.6 HEMORRHOIDS NOS 02/02/2014 JOSIAH QUALITY IMPROVEMENT COORDINATOR, RASHEED S 211.9 POLYP- GI 02/02/2014 JOSIAH QUALITY IMPROVEMENT COORDINATOR, RASHEED S 455.6 HEMORRHOIDS NOS 02/02/2014 JOSIAH QUALITY IMPROVEMENT COORDINATOR, RASHEED S 211.9 POLYP- GI 02/02/2014 JOSIAH QUALITY IMPROVEMENT COORDINATOR, RASHEED S 455.6 HEMORRHOIDS NOS 02/02/2014 YUAN DO, JACK K 211.9 POLYP- GI 02/02/2014 YUAN DO, JACK K 455.6 HEMORRHOIDS NOS 02/02/2014 JOSIAH QUALITY IMPROVEMENT COORDINATOR, RASHEED S 211.9 POLYP- GI 02/02/2014 JOSIAH QUALITY IMPROVEMENT COORDINATOR, RASHEED S 455.6 HEMORRHOIDS NOS 02/02/2014 JOSIAH QUALITY IMPROVEMENT COORDINATOR, RASHEED S 211.9 POLYP- GI 02/02/2014 JOSIAH QUALITY IMPROVEMENT COORDINATOR, RASHEED S 455.6 HEMORRHOIDS NOS 02/02/2014 JOSIAH QUALITY IMPROVEMENT COORDINATOR, RASHEED S 211.9 POLYP- GI 02/02/2014 JOSIAH QUALITY IMPROVEMENT COORDINATOR, RASHEED S 455.6 HEMORRHOIDS NOS 02/10/2014 JOSEE ESCOTO FACC, ROGER KIMP CCDS Ot 272.4 HYPERLIPIDEMIA NEC/NOS 02/10/2014 JOSEE ESCOTO FACC, ROGER KIMP CCDS Ot 278.00 OBESITY, NOS 02/10/2014 JOSEE ESCOTO FACC, ROGER MARIE CCDS Ot 305.1 TOBACCO USE DISORDER 02/10/2014 JOSEE ESCOTO FACC, ALI FACP CCDS Ot 401.9 HYPERTENSION NOS 02/10/2014 JOSEE ESCOTO [facility], ALI FACP CCDS Ot 530.81 ESOPHAGEAL REFLUX 02/10/2014 JOSEE ESCOTO [facility], ALI FACP CCDS Ot 786.50 CHEST PAIN NOS 02/10/2014 JOSEE ESCOTO [facility], ALI FACP CCDS Ot V17.3 FAM HX-ISCHEM HEART DIS 02/10/2014 JOSEE ESCOTO [facility], ROGRE FACP CCDS Ot V58.69 OTH MED,LT,CURRENT USE 02/10/2014 JOSEE ESCOTO [facility], ALI FACP CCDS Ot V85.37 BODY MASS INDEX 37.0-37.9, ADULT 03/04/2014 NESS ESCOTO, SOSA Shelby Ot 496 CHR AIRWAY OBSTRUCT NEC 03/04/2014 SOSA ARZOLA MD Ot 717.40 DERANG LAT MENISCUS NOS 03/04/2014 SOSA AROZLA MD Ot V57.1 PHYSICAL THERAPY NEC 03/04/2014 SOSA ARZOLA MD Ot V58.69 OTH MED,LT,CURRENT USE 03/19/2014 NAKIA RAHMAN APRNNDA S 729.82 CRAMP OF LIMB 03/19/2014 NAKIA RAHMAN APRNNDA S V04.81 FLU SHOT 03/19/2014 NAKIA RAHMAN APRNNDA S V15.82 NICOTINE ABUSE 03/19/2014 YUAN DO JACK K 729.82 CRAMP OF LIMB 03/19/2014 YUAN DO JACK K V04.81 FLU SHOT 03/19/2014 YUAN DO JACK K V15.82 NICOTINE ABUSE 03/19/2014 JOSIAH LERNER RASHEED S 729.82 CRAMP OF LIMB 03/19/2014 JOSIAH LERNER RASHEED S V04.81 FLU SHOT 03/19/2014 JOSIAH LERNER RASHEED S V15.82 NICOTINE ABUSE 03/19/2014 JOSIAH LERNER RASHEED S 729.82 CRAMP OF LIMB 03/19/2014 JOSIAH LERNER RASHEED S V04.81 FLU SHOT 03/19/2014 NAKIA RAHMAN APRNNDA S V15.82 NICOTINE ABUSE 03/19/2014 JOSIAH QUALITY IMPROVEMENT COORDINATOR, RASHEED S 729.82 CRAMP OF LIMB 03/19/2014 JOSIAH LERNER, RASHEED S V04.81 FLU SHOT 03/19/2014 JOSIAH LERNER, RASHEED S V15.82 NICOTINE ABUSE 03/26/2014 JOSIAH QUALITY IMPROVEMENT COORDINATOR, RASHEED S 788.1 DYSURIA 03/26/2014 YUAN DO, JACK K 788.1 DYSURIA 03/26/2014 JOSIAH QUALITY IMPROVEMENT COORDINATOR, RASHEED S 788.1 DYSURIA 03/26/2014 JOSIAH LERNER, RASHEED S 788.1 DYSURIA 03/26/2014 JOSIAH LERNER, RASHEED S 788.1 DYSURIA 04/07/2014 RASHEED RAHMAN POSTMASTER RELIEF Ot 719.46 JOINT PAIN-L/LEG 04/07/2014 RASHEED RAHMAN POSTMASTER RELIEF Ot V57.1 PHYSICAL THERAPY NEC 04/10/2014 LIBERTY SANDOVAL QUALITY IMPROVEMENT COORDINATOR Ot 491.21 OBSTR CHRONIC BRONCHITIS, W (ACUTE) EXAC 04/10/2014 LIBERTY SANDOVAL QUALITY IMPROVEMENT COORDINATOR Ot 786.05 SHORTNESS OF BREATH 04/10/2014 LIBERTY SANDOVAL QUALITY IMPROVEMENT COORDINATOR Ot 787.02 NAUSEA ALONE 04/10/2014 LIBERTY SANDOVAL QUALITY IMPROVEMENT COORDINATOR Ot 787.91 DIARRHEA 04/17/2014 YUAN DO, JACK K 110.1 ONYCHOMYCOSIS 04/17/2014 YUAN DO, JACK K 706.8 XEROSIS 04/17/2014 JOSIAH QUALITY IMPROVEMENT COORDINATOR, RASHEED S 110.1 ONYCHOMYCOSIS 04/17/2014 JOSIAH LERNER, RASHEED S 706.8 XEROSIS 04/17/2014 JOSIAH QUALITY IMPROVEMENT COORDINATOR, RASHEED S 110.1 ONYCHOMYCOSIS 04/17/2014 JOSIAH QUALITY IMPROVEMENT COORDINATOR, RASHEED S 706.8 XEROSIS 04/17/2014 JOSIAH QUALITY IMPROVEMENT COORDINATOR, RASHEED S 110.1 ONYCHOMYCOSIS 04/17/2014 JOSIAH QUALITY IMPROVEMENT COORDINATOR, RASHEED S 706.8 XEROSIS 06/03/2014 JOSIAH QUALITY IMPROVEMENT COORDINATOR, RASHEED S 466.0 BRONCHITIS, ACUTE 06/03/2014 JOSIAH QUALITY IMPROVEMENT COORDINATOR, RASHEED S 466.0 BRONCHITIS, ACUTE 06/03/2014 JOSIAH QUALITY IMPROVEMENT COORDINATOR, RASHEED S 466.0 BRONCHITIS, ACUTE 07/06/2014 JOSIAH LERNER RASHEED S 719.41 PAIN- SHOULDER 07/27/2014 Ot 786.50 07/27/2014 Ot 715.36 07/27/2014 Ot 791.9 07/27/2014 Ot V57.1 07/27/2014 Ot V57.21 07/27/2014 Ot V72.63 07/27/2014 Ot V74.8 07/27/2014 RASHEED RAHMANP Ot V76.12 07/27/2014 RASHEED RAHMAN Ot V76.12 07/27/2014 SAMEERA ESCOTO, JAMIE Ot V72.84 07/27/2014 NESS ESCOTO, SOSA Shelby Ot 717.7 07/27/2014 NESS ESCOTO, SOSA Shelby Ot V72.84 07/27/2014 NESS ESCOTO, SOSA Shelby Ot V74.8 09/23/2014 KAREN ESCOTO, RYAN Moeller Ot 272.4 HYPERLIPIDEMIA NEC/NOS 09/23/2014 KAREN ESCOTO, RYAN Moeller Ot 401.9 HYPERTENSION NOS 09/23/2014 KAREN ESCOTO, RYAN Moeller Ot 496 CHR AIRWAY OBSTRUCT NEC 09/23/2014 KAREN ESCOTO, RYAN Moeller Ot 530.81 ESOPHAGEAL REFLUX 09/23/2014 KAREN ESCOTO, RYAN Moeller Ot 596.51 HYPERTONICITY OF BLADDER 09/23/2014 KAREN ESCOTO, RYAN Moeller Ot 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 09/23/2014 KAREN ESCOTO, RYAN Moeller Ot 788.30 UNSPECIFIED URINARY INCONTINENCE 10/12/2014 Ot 786.50 10/12/2014 Ot 715.36 10/12/2014 Ot 791.9 10/12/2014 Ot V57.1 10/12/2014 Ot V57.21 10/12/2014 Ot V72.63 10/12/2014 Ot V74.8 10/12/2014 RASHEED RAHMAN POSTMASTER RELIEF Ot V76.12 10/12/2014 RASHEED RAHMAN Ot V76.12 10/12/2014 SAMEERA ESCOTO, JAMIE Ot V72.84 10/12/2014 NESS ESCOTO, SOSA Shelby Ot 717.7 10/12/2014 NESS ESCOTO, SOSA P Ot V72.84 10/12/2014 NESS ESCOTO, SOSA P Ot V74.8 10/12/2014 NESS ESCOTO, SOSA P Ot 727.61 10/12/2014 KAREN ESCOTO, RYAN Moeller Ot 599.82 10/12/2014 KAREN ESCOTO, RYAN Moeller Ot 788.30 10/12/2014 KAREN ESCOTO, RYAN A Ot V72.84 10/12/2014 KAREN ESCOTO, RYAN A Ot V74.8 10/29/2014 Ot 786.50 10/29/2014 Ot 715.36 10/29/2014 Ot 791.9 10/29/2014 Ot V57.1 10/29/2014 Ot V57.21 10/29/2014 Ot V72.63 10/29/2014 Ot V74.8 10/29/2014 RASHEED RAHMAN Ot V76.12 10/29/2014 RASHEED RAHMANP Ot V76.12 10/29/2014 SAMEERA ESCOTO, JAMIE Ot V72.84 10/29/2014 NESS ESCOTO, SOSA Shelby Ot 717.7 10/29/2014 NESS ESCOTO, SOSA P Ot V72.84 10/29/2014 NESS ESCOTO, SOSA P Ot V74.8 10/29/2014 NESS ESCOTO, SOSA Shelby Ot 727.61 10/29/2014 KAREN ESCOTO, RYAN Moeller Ot 599.82 10/29/2014 KAREN ESCOTO, RYAN Moeller Ot 788.30 10/29/2014 KAREN ESCOTO, RYAN A Ot V72.84 10/29/2014 KAREN ESCOTO, RYAN A Ot V74.8 10/29/2014 GELLENDER DO, MORAIMA A Ot 719.46 10/29/2014 GELLENDER DO, MORAIMA A Ot 724.2 10/29/2014 GELLENDER DO, MORAIMA A Ot 959.7 10/29/2014 GELLENDER DO, MORAIMA A Ot E000.8 10/29/2014 GELLENDER DO, MORAIMA A Ot E849.0 10/29/2014 GELLENDER DO, MORAIMA A Ot E888.9 10/29/2014 GELLENDER DO, MORAIMA A Ot 789.01 11/09/2014 GELLENDER DO, MORAIMA Moeller Ot 719.46 11/09/2014 GELLENDER DO, MORAIMA A Ot 724.2 11/09/2014 GELLENDER DO, MORAIMA Moeller Ot 959.7 11/09/2014 GELLENDER DO, MORAIMA Moeller Ot E000.8 11/09/2014 GELLENDER DO, MORAIMA Moeller Ot E849.0 11/09/2014 GELLENDER DO, MORAIMA Moeller Ot E888.9 11/11/2014 RUFINA ESCOTO, NARAYAN Marr Ot 575.11 CHRONIC CHOLECYSTITIS 11/11/2014 RUFINA ESCOTO, NARAYAN Marr Ot V74.8 SCREEN-BACTERIAL DIS NEC 11/20/2014 GELLENDER DO, MORAIMA A Ot 789.01 11/20/2014 GELLENDER DO, MORAIMA Moeller Ot 719.46 11/20/2014 GELLENDER DO, MORAIMA Moeller Ot 724.2 11/20/2014 GELLENDER DO, MORAIMA Moeller Ot 959.7 11/20/2014 GELLENDER DO, MORAIMA Moeller Ot E000.8 11/20/2014 GELLENDER DO, MORAIMA Moeller Ot E849.0 11/20/2014 GELLENDER DO, MORAIMA Moeller Ot E888.9 11/23/2014 GELLENDER DO, MORAIMA Moeller Ot 789.01 12/01/2014 GELLENDER DO, MORAIMA Moeller Ot 575.8 12/02/2014 RUFINA ESCOTO, NARAYAN Marr Ot 575.8 12/02/2014 RUFINA ESCOTO, NARAYAN Marr Ot V72.63 12/02/2014 RUFINA ESCOTO, NARAYAN Marr Ot V72.81 12/02/2014 RUFINA ESCOTO, NARAYAN Marr Ot V74.8 12/03/2014 GELLENDER DO, MORAIMA Moeller Ot 575.8 12/05/2014 RUFINA ESCOTO, NARAYAN Marr Ot 575.8 12/05/2014 RUFINA ESCOTO, NARAYAN Marr Ot V72.63 12/05/2014 RUFINA ESCOTO, NARAYAN Marr Ot V72.81 12/05/2014 RUFINA ESCOTO, NARAYAN Marr Ot V74.8 01/13/2015 NESS ESCOTO, SOSA Shelby Ot 272.4 HYPERLIPIDEMIA NEC/NOS 01/13/2015 NESS ESCOTO, SOSA Shelby Ot 305.1 TOBACCO USE DISORDER 01/13/2015 NESS ESCOTO, SOSA Shelby Ot 401.9 HYPERTENSION NOS 01/13/2015 NESS ESCOTO, SOSA Shelby Ot 496 CHR AIRWAY OBSTRUCT NEC 01/13/2015 NESS ESCOTO, SOSA Shelby Ot 715.31 LOC OSTEOARTH NOS-SHLDER 01/13/2015 NESS ESCOTO, SOSA Shelby Ot 840.7 (SLAP) SUPERIOR GLENOID LABRUM LESIONS 01/13/2015 NESS ESCOTO, SOSA Shelby Ot V58.69 OT MED,LT,CURRENT USE 01/19/2015 NESS ESCOTO, SOSA Shelby Ot 727.61 01/19/2015 NESS ESCOTO, SOSA Shelby Ot V57.1 01/19/2015 NESS ESCOTO, SOSA Shelby Ot V58.78 01/19/2015 NESS ESCOTO, SOSA Shelby Ot 727.61 01/19/2015 NESS ESCOTO, SOSA Shelby Ot V57.1 01/19/2015 NESS ESCOTO, SOSA Shelby Ot V58.78 02/10/2015 NESS ESCOTO, SOSA Shelby Ot 727.61 ROTATOR CUFF RUPTURE 02/10/2015 NESS ESCOTO, SOSA Shelby Ot V57.1 PHYSICAL THERAPY NEC 02/10/2015 NESS ESCOTO, SOSA Shelby Ot V58.78 AFTERCARE POST SURGERY MUSCULOSKELETAL S 03/17/2015 Ot 786.50 03/17/2015 Ot 715.36 03/17/2015 Ot 791.9 03/17/2015 Ot V57.1 03/17/2015 Ot V57.21 03/17/2015 Ot V72.63 03/17/2015 Ot V74.8 03/17/2015 RASHEED RAHMAN Ot V76.12 03/17/2015 RASHEED RAHMAN Ot V76.12 03/17/2015 SAMEERA ESCOTO, JAMIE Ot V72.84 03/17/2015 NESS ESCOTO, SOSA Shelby Ot 717.7 03/17/2015 NESS ESCOTO, SOSA Shelby Ot V72.84 03/17/2015 NESS ESCOTO, SOSA Shelby Ot V74.8 03/17/2015 NESS ESCOTO, SOSA Shelby Ot 727.61 03/17/2015 KAREN ESCOTO, RYAN Moeller Ot 599.82 03/17/2015 KAREN ESCOTO, RYAN Moeller Ot 788.30 03/17/2015 KAREN ESCOTO, RYAN Moeller Ot V72.84 03/17/2015 KAREN ESCOTO, RYAN Moeller Ot V74.8 03/17/2015 GELLENDER DO, MORAIMA Moeller Ot 719.46 03/17/2015 GELLENDER DO, MORAIMA A Ot 724.2 03/17/2015 GELLENDER DO, MORAIMA Moeller Ot 959.7 03/17/2015 GELLENDER DO, MORAIMA Moeller Ot E000.8 03/17/2015 GELLENDER DO, MORAIMA A Ot E849.0 03/17/2015 GELLENDER DO, MORAIMA A Ot E888.9 03/17/2015 GELLENDER DO, MORAIMA Moeller Ot 789.01 03/17/2015 GELLENDER DO, MORAIMA A Ot 575.8 03/17/2015 RUFINA ESCOTO, NARAYAN Mrar Ot 575.8 03/17/2015 RUFINA ESCOTO, NARAYAN Marr Ot V72.63 03/17/2015 RUFINA ESCOTO, NARAYAN M Ot V72.81 03/17/2015 RUFINA ESCOTO, NARAYAN M Ot V74.8 03/17/2015 NESS ESCOTO, SOSA Shelby Ot 715.31 03/17/2015 NESS ESCOTO, SOSA P Ot 727.61 03/17/2015 NESS ESCOTO, SOSA Shelby Ot 840.7 03/17/2015 NESS ESCOTO, SOSA Shelby Ot V72.83 03/24/2015 SOSA ARZOLA MD Ot E78.5 HYPERLIPIDEMIA, UNSPECIFIED 03/24/2015 NESS ESCOTO, SOSA Shelby Ot G56.02 CARPAL TUNNEL SYNDROME, LEFT UPPER LIMB 03/24/2015 SOSA ARZOLA MD Ot I10 ESSENTIAL (PRIMARY) HYPERTENSION 03/24/2015 NESS ESCOTO, SOSA Shelby Ot J44.9 CHRONIC OBSTRUCTIVE PULMONARY DISEASE, U 04/08/2015 RASHEED RAHMAN Ot Z12.31 04/13/2015 RASHEED RAHMAN POSTMASTER RELIEF Ot Z12.31 04/21/2015 NESS ESCOTO, SOSA Shelby Ot E78.5 HYPERLIPIDEMIA, UNSPECIFIED 04/21/2015 NESS ESCOTO, SOSA Shelby Ot G56.01 CARPAL TUNNEL SYNDROME, RIGHT UPPER LIMB 04/21/2015 NESS ESCOTO, SOSA Shelby Ot I10 ESSENTIAL (PRIMARY) HYPERTENSION 04/21/2015 SOSA ARZOLA MD Ot J44.9 CHRONIC OBSTRUCTIVE PULMONARY DISEASE, U 04/21/2015 SOSA ARZOLA MD Ot Z11.2 ENCOUNTER FOR SCREENING FOR OTHER BACTER 04/23/2015 GELLENDER DO, MORAIMA A Ot Z13.89 04/23/2015 GELLENDER DO, MORAIMA A Ot Z13.89 05/21/2015 GELLENDER DO, MORAIMA A Ot J40 05/21/2015 GELLENDER DO, MORAIMA A Ot J44.9 05/25/2015 GELLENDER DO, MORAIMA A Ot J40 05/25/2015 GELLENDER DO, MORAIMA A Ot J44.9 05/28/2015 GELLENDER DO, MORAIMA A Ot N39.0 06/16/2015 GELLENDER DO, MORAIMA A Ot N39.0 06/22/2015 GELLENDER DO, MORAIMA A Ot N39.0 11/25/2015 SOSA ARZOLA MD Ot M12.9 ARTHROPATHY, UNSPECIFIED 11/25/2015 SOSA ARZOLA MD Ot Z01.818 ENCOUNTER FOR OTHER PREPROCEDURAL EXAMIN 11/25/2015 SOSA ARZOLA MD Ot Z11.2 ENCOUNTER FOR SCREENING FOR OTHER BACTER 11/26/2015 SOSA ARZOLA MD Ot M12.9 ARTHROPATHY, UNSPECIFIED 11/26/2015 SOSA ARZOLA MD Ot Z01.818 ENCOUNTER FOR OTHER PREPROCEDURAL EXAMIN 11/26/2015 SOSA ARZOLA MD Ot Z11.2 ENCOUNTER FOR SCREENING FOR OTHER BACTER 12/08/2015 SOSA ARZOLA MD Ot E78.5 HYPERLIPIDEMIA, UNSPECIFIED 12/08/2015 SOSA ARZOLA MD Ot I10 ESSENTIAL (PRIMARY) HYPERTENSION 12/08/2015 SOSA ARZOLA MD Ot J44.9 CHRONIC OBSTRUCTIVE PULMONARY DISEASE, U 12/08/2015 SOSA ARZOLA MD Ot M19.012 PRIMARY OSTEOARTHRITIS, LEFT SHOULDER 12/08/2015 SOSA ARZOLA MD Ot M75.41 IMPINGEMENT SYNDROME OF RIGHT SHOULDER 12/08/2015 SOSA ARZOLA MD Ot 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 12/09/2015 SOSA ARZOLA MD Ot E78.5 HYPERLIPIDEMIA, UNSPECIFIED 12/09/2015 SOSA ARZOLA MD Ot I10 ESSENTIAL (PRIMARY) HYPERTENSION 12/09/2015 SOSA ARZOLA MD Ot J44.9 CHRONIC OBSTRUCTIVE PULMONARY DISEASE, U 12/09/2015 SOSA ARZOLA MD Ot M19.012 PRIMARY OSTEOARTHRITIS, LEFT SHOULDER 12/09/2015 SOSA ARZOLA MD Ot M75.41 IMPINGEMENT SYNDROME OF RIGHT SHOULDER 12/09/2015 SOSA ARZOLA MD Ot 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 12/10/2015 SOSA ARZOLA MD Ot E78.5 HYPERLIPIDEMIA, UNSPECIFIED 12/10/2015 SOSA ARZOLA MD Ot I10 ESSENTIAL (PRIMARY) HYPERTENSION 12/10/2015 SOSA ARZOLA MD, Ot J44.9 CHRONIC OBSTRUCTIVE PULMONARY DISEASE, U 12/10/2015 SOSA ARZOLA MD, Ot M19.012 PRIMARY OSTEOARTHRITIS, LEFT SHOULDER 12/10/2015 SOSA ARZOLA MD Ot M75.41 IMPINGEMENT SYNDROME OF RIGHT SHOULDER 12/10/2015 SOSA ARZOLA MD Ot 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 12/14/2015 SOSA ARZOLA MD Ot S43.431D SUPERIOR GLENOID LABRUM LESION OF RIGHT 12/28/2015 RASHEED RAHMAN Ot G47.10 HYPERSOMNIA, UNSPECIFIED 12/28/2015 RASHEED RAHMAN Ot G47.33 OBSTRUCTIVE SLEEP APNEA (ADULT) (PEDIATR 12/28/2015 RASHEED RAHMAN Ot R06.83 SNORING 01/03/2016 SOSA ARZOLA MD Ot S43.431D SUPERIOR GLENOID LABRUM LESION OF RIGHT 01/04/2016 LIBERTY SANDOVAL QUALITY IMPROVEMENT COORDINATOR Ot F17.210 NICOTINE DEPENDENCE, CIGARETTES, UNCOMPL 01/04/2016 LIBERTY SANDOVAL QUALITY IMPROVEMENT COORDINATOR Ot T78.40XA ALLERGY, UNSPECIFIED, INITIAL ENCOUNTER 01/04/2016 Ot 715.36 LOC OSTEOARTH NOS-L/LEG 01/04/2016 Ot 791.9 ABN URINE FINDINGS NEC 01/04/2016 Ot V57.1 PHYSICAL THERAPY NEC 01/04/2016 Ot V57.21 ENCOUNTER FOR OCCUPATIONAL THERAPY 01/04/2016 Ot V72.63 PRE- PROCEDURAL LABORATORY EXAMINATION 01/04/2016 Ot V74.8 SCREEN- BACTERIAL DIS NEC 01/04/2016 RASHEED RAHMANP Ot V76.12 OTH SCREEN MAMMO-MALIGN NEOPLASM OF SAMANTHA 01/04/2016 RASHEED RAHMAN DIAMOND Ot V76.12 OTH SCREEN MAMMO-MALIGN NEOPLASM OF SAMANTHA 01/04/2016 SAMEERA ESCOTO, JAMIE Ot V72.84 EXAM PRE-OPERATIVE NOS 01/04/2016 NESS ESCOTO, SOSA Shelby Ot 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 PATELLAE 01/04/2016 NESS ESCOTO, SOSA Shelby Ot V72.84 EXAM PRE-OPERATIVE NOS 01/04/2016 NESS ESCOTO, SOSA Shelby Ot V74.8 SCREEN-BACTERIAL DIS NEC 01/04/2016 NESS ESCOTO, SOSA Shelby Ot 727.61 ROTATOR CUFF RUPTURE 01/04/2016 KAREN ESCOTO, RYAN Moeller Ot 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 01/04/2016 KAREN ESCOTO, RYAN Moeller Ot 788.30 UNSPECIFIED URINARY INCONTINENCE 01/04/2016 KAREN ESCOTO, RYAN Moeller Ot V72.84 EXAM PRE-OPERATIVE NOS 01/04/2016 KAREN ESCOTO, RYAN Moeller Ot V74.8 SCREEN-BACTERIAL DIS NEC 01/04/2016 GELLENDER DO, MORAIMA Moeller Ot 719.46 JOINT PAIN-L/LEG 01/04/2016 MORAIMA NOEL DO Ot 724.2 LUMBAGO 01/04/2016 MAXIMUSDER MORAIMA HDEZ Ot 959.7 LOWER LEG INJURY NOS 01/04/2016 MORAIMA NOEL DO Ot E000.8 OTHER EXTERNAL CAUSE STATUS 01/04/2016 MAXIMUSDER MORAIMA HDEZ Ot E849.0 ACCIDENT IN HOME 01/04/2016 MAXIMUSDER MORAIMA HDEZ Ot E888.9 FALL NOS 01/04/2016 GELYOUSUFDER DOMORAIMA Ot 789.01 ABDOMINAL PAIN, RIGHT UPPER QUADRANT 01/04/2016 MORAIMA NOEL DO A Ot 575.8 DIS OF GALLBLADDER NEC 01/04/2016 RUFINA ESCOTO, NARAYAN Marr Ot 575.8 DIS OF GALLBLADDER NEC 01/04/2016 RUFINA ESCOTO, NARAYAN Marr Ot V72.63 PRE-PROCEDURAL LABORATORY EXAMINATION 01/04/2016 RUFINA ESCOTO, NARAYAN Marr Ot V72.81 [id number] CARDIOVASCULAR 01/04/2016 RUFINA ESCOTO, NARAYAN Marr Ot V74.8 SCREEN-BACTERIAL DIS NEC 01/04/2016 NESS ESCOTO, SOSA Shelby Ot 715.31 LOC OSTEOARTH NOS-SHLDER 01/04/2016 NESS ESCOTO, SOSA Shelby Ot 727.61 ROTATOR CUFF RUPTURE 01/04/2016 SOSA ARZOLA MD Ot 840.7 (SLAP) SUPERIOR GLENOID LABRUM LESIONS 01/04/2016 SOSA ARZOLA MD Ot V72.83 EXAM PRE-OPERATIVE NEC 01/04/2016 Ot G56.02 CARPAL TUNNEL SYNDROME, LEFT UPPER LIMB 01/04/2016 Ot Z01.818 ENCOUNTER FOR OTHER PREPROCEDURAL EXAMIN 01/04/2016 Ot Z11.2 ENCOUNTER FOR SCREENING FOR OTHER BACTER 01/04/2016 RASHEED RAHMAN Ot Z12.31 ENCNTR SCREEN MAMMOGRAM FOR MALIGNANT NE 01/04/2016 MORAIMA NOEL DO Ot Z13.89 ENCOUNTER FOR SCREENING FOR OTHER DISORD 01/04/2016 SOSA ARZOLA MD Ot G56.01 CARPAL TUNNEL SYNDROME, RIGHT UPPER LIMB 01/04/2016 SOSA ARZOLA MD Ot Z01.818 ENCOUNTER FOR OTHER PREPROCEDURAL EXAMIN 01/04/2016 MORAIMA NOEL DO Ot J40 BRONCHITIS, NOT SPECIFIED ACUTE OR CH 01/04/2016 MORAIMA NOEL DO Ot J44.9 CHRONIC OBSTRUCTIVE PULMONARY DISEASE, U 01/04/2016 MORAIMA NOEL DO Ot N39.0 URINARY TRACT INFECTION, SITE NOT SPECIF 01/04/2016 SOSA ARZOLA MD Ot S43.431D SUPERIOR GLENOID LABRUM LESION OF RIGHT 01/05/2016 LIBERTY SANDOVAL APRN Ot F17.210 NICOTINE DEPENDENCE, CIGARETTES, UNCOMPL 01/05/2016 LIBERTY SANDOVAL APRN Ot T78.40XA ALLERGY, UNSPECIFIED, INITIAL ENCOUNTER 01/13/2016 DINO TILLMAN Ot R22.31 LOCALIZED SWELLING, MASS AND LUMP, RIGHT 02/04/2016 SOSA ARZOLA MD Ot S43.431D SUPERIOR GLENOID LABRUM LESION OF RIGHT 02/04/2016 SOSA ARZOLA MD Ot S43.431D SUPERIOR GLENOID LABRUM LESION OF RIGHT 02/04/2016 DINO TILLMAN Ot R22.31 LOCALIZED SWELLING, MASS AND LUMP, RIGHT 02/08/2016 NESS ESCOTO, SOSA Shelby Ot S43.431D SUPERIOR GLENOID LABRUM LESION OF RIGHT 02/08/2016 DINO TILLMAN Ot R22.31 LOCALIZED SWELLING, MASS AND LUMP, RIGHT 02/21/2016 NESS ESCOTO, SOSA Shelby Ot S43.431D SUPERIOR GLENOID LABRUM LESION OF RIGHT 04/03/2016 Ot 715.36 LOC OSTEOARTH NOS-L/LEG 04/03/2016 Ot 791.9 ABN URINE FINDINGS NEC 04/03/2016 Ot V57.1 PHYSICAL THERAPY NEC 04/03/2016 Ot V57.21 ENCOUNTER FOR OCCUPATIONAL THERAPY 04/03/2016 Ot V72.63 PRE- PROCEDURAL LABORATORY EXAMINATION 04/03/2016 Ot V74.8 SCREEN- BACTERIAL DIS NEC 04/03/2016 RASHEED RAHMANP Ot V76.12 OTH SCREEN MAMMO-MALIGN NEOPLASM OF SAMANTHA 04/03/2016 RASHEED RAHMANP Ot V76.12 OTH SCREEN MAMMO-MALIGN NEOPLASM OF SAMANTHA 04/03/2016 SAMEERA ESCOTO, JAMIE Ot V72.84 EXAM PRE-OPERATIVE NOS 04/03/2016 NESS ESCOTO, SOSA Shelby Ot 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 PATELLAE 04/03/2016 SOSA ARZOLA MD Ot V72.84 EXAM PRE-OPERATIVE NOS 04/03/2016 SOSA ARZOLA MD Ot V74.8 SCREEN-BACTERIAL DIS NEC 04/03/2016 SOSA ARZOLA MD Ot 727.61 ROTATOR CUFF RUPTURE 04/03/2016 KAREN ESCOTO, RYAN Moeller Ot 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 04/03/2016 RYAN JONES MD Ot 788.30 UNSPECIFIED URINARY INCONTINENCE 04/03/2016 RYAN JONES MD Ot V72.84 EXAM PRE-OPERATIVE NOS 04/03/2016 RYAN JONES MD Ot V74.8 SCREEN-BACTERIAL DIS NEC 04/03/2016 MORAIMA NOEL DO Ot 719.46 JOINT PAIN-L/LEG 04/03/2016 MORAIMA NOEL DO Ot 724.2 LUMBAGO 04/03/2016 MORAIMA NOEL DO Ot 959.7 LOWER LEG INJURY NOS 04/03/2016 MORAIMA NOEL DO Ot E000.8 OTHER EXTERNAL CAUSE STATUS 04/03/2016 MORAIMA NOEL DO Ot E849.0 ACCIDENT IN HOME 04/03/2016 MORAIMA NOEL DO Ot E888.9 FALL NOS 04/03/2016 MORAIMA NOEL DO Ot 789.01 ABDOMINAL PAIN, RIGHT UPPER QUADRANT 04/03/2016 BERT HDEZ MORAIMA Moeller Ot 575.8 DIS OF GALLBLADDER NEC 04/03/2016 RUFINA ESCOTO, NARAYAN Marr Ot 575.8 DIS OF GALLBLADDER NEC 04/03/2016 RUFINA ESCOTO, NARAYAN Marr Ot V72.63 PRE-PROCEDURAL LABORATORY EXAMINATION 04/03/2016 RUFINA ESCOTO, NARAYAN Marr Ot V72.81 XURO-NLD-HREGGPSRO CARDIOVASCULAR 04/03/2016 RUFINA ESCOTO, NARAYAN Marr Ot V74.8 SCREEN-BACTERIAL DIS NEC 04/03/2016 NESS ESCOTO, SOSA Shelby Ot 715.31 LOC OSTEOARTH NOS-SHLDER 04/03/2016 NESS ESCOTO, SOSA Shelby Ot 727.61 ROTATOR CUFF RUPTURE 04/03/2016 NESS ESCOTO, SOSA Shelby Ot 840.7 (SLAP) SUPERIOR GLENOID LABRUM LESIONS 04/03/2016 NESS ESCOTO, SOSA Shelby Ot V72.83 EXAM PRE-OPERATIVE NEC 04/03/2016 Ot G56.02 CARPAL TUNNEL SYNDROME, LEFT UPPER LIMB 04/03/2016 Ot Z01.818 ENCOUNTER FOR OTHER PREPROCEDURAL EXAMIN 04/03/2016 Ot Z11.2 ENCOUNTER FOR SCREENING FOR OTHER BACTER 04/03/2016 RASHEED RAHMAN Ot Z12.31 ENCNTR SCREEN MAMMOGRAM FOR MALIGNANT NE 04/03/2016 BERT HDEZ MORAIMA Moeller Ot Z13.89 ENCOUNTER FOR SCREENING FOR OTHER DISORD 04/03/2016 NESS ESCOTO, SOSA Shelby Ot G56.01 CARPAL TUNNEL SYNDROME, RIGHT UPPER LIMB 04/03/2016 NESS ESCOTO, SOSA Shelby Ot Z01.818 ENCOUNTER FOR OTHER PREPROCEDURAL EXAMIN 04/03/2016 BERT HDEZMORAIMA Ot J40 BRONCHITIS, NOT SPECIFIED ACUTE OR CH 04/03/2016 BERT HDEZMORAIMA Ot J44.9 CHRONIC OBSTRUCTIVE PULMONARY DISEASE, U 04/03/2016 MORAIMA NOEL DO Ot N39.0 URINARY TRACT INFECTION, SITE NOT SPECIF 04/03/2016 DINO TILLMAN Radu POSTMASTER RELIEF Ot R22.31 LOCALIZED SWELLING, MASS AND LUMP, RIGHT 04/03/2016 NAKIA RAHMANNDA DIAMOND Ot Z12.31 ENCNTR SCREEN MAMMOGRAM FOR MALIGNANT NE 04/03/2016 JOSIAH RASHEED FIELDS Ot Z12.31 ENCNTR SCREEN MAMMOGRAM FOR MALIGNANT NE 04/04/2016 JOSIAH RASHEED FIELDS Ot Z12.31 ENCNTR SCREEN MAMMOGRAM FOR MALIGNANT NE 04/12/2016 Ot 715.36 LOC OSTEOARTH NOS-L/LEG 04/12/2016 Ot 791.9 ABN URINE FINDINGS NEC 04/12/2016 Ot V57.1 PHYSICAL THERAPY NEC 04/12/2016 Ot V57.21 ENCOUNTER FOR OCCUPATIONAL THERAPY 04/12/2016 Ot V72.63 PRE- PROCEDURAL LABORATORY EXAMINATION 04/12/2016 Ot V74.8 SCREEN- BACTERIAL DIS NEC 04/12/2016 RASHEED RAHMAN Ot V76.12 OTH SCREEN MAMMO-MALIGN NEOPLASM OF SAMANTHA 04/12/2016 RASHEED RAHMAN Ot V76.12 OTH SCREEN MAMMO-MALIGN NEOPLASM OF SAMANTHA 04/12/2016 SAMEERA ESCOTO, JAMIE Ot V72.84 EXAM PRE-OPERATIVE NOS 04/12/2016 NESS ESCOTO, SOSA Shelby Ot 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 PATELLAE 04/12/2016 NESS ESCOTO, SOSA Shelby Ot V72.84 EXAM PRE-OPERATIVE NOS 04/12/2016 NESS ESCOTO, SOSA Shelby Ot V74.8 SCREEN-BACTERIAL DIS NEC 04/12/2016 NESS ESCOTO, SOSA Shelby Ot 727.61 ROTATOR CUFF RUPTURE 04/12/2016 KAREN ESCOTO, RYAN Moeller Ot 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 04/12/2016 RYAN JONES MD Ot 788.30 UNSPECIFIED URINARY INCONTINENCE 04/12/2016 RYAN JONES MD Ot V72.84 EXAM PRE-OPERATIVE NOS 04/12/2016 RYAN JONES MD Ot V74.8 SCREEN-BACTERIAL DIS NEC 04/12/2016 MORAIMA NOEL DO Ot 719.46 JOINT PAIN-L/LEG 04/12/2016 MORAIMA NOEL DO Ot 724.2 LUMBAGO 04/12/2016 MORAIMA NOEL DO Ot 959.7 LOWER LEG INJURY NOS 04/12/2016 MORAIMA NOEL DO Ot E000.8 OTHER EXTERNAL CAUSE STATUS 04/12/2016 MORAIMA NOEL DO Ot E849.0 ACCIDENT IN HOME 04/12/2016 MORAIMA NOEL DO Ot E888.9 FALL NOS 04/12/2016 MORAIMA NOEL DO Ot 789.01 ABDOMINAL PAIN, RIGHT UPPER QUADRANT 04/12/2016 MORAIMA NOEL DO Ot 575.8 DIS OF GALLBLADDER NEC 04/12/2016 RUFINA ESCOTO, NARAYAN Marr Ot 575.8 DIS OF GALLBLADDER NEC 04/12/2016 RUFINA ESCOTO, NARAYAN Marr Ot V72.63 PRE-PROCEDURAL LABORATORY EXAMINATION 04/12/2016 RUFINA ESCOTO, NARAYAN Marr Ot V72.81 [id number] CARDIOVASCULAR 04/12/2016 RUFINA ESCOTO, NARAYAN Marr Ot V74.8 SCREEN-BACTERIAL DIS NEC 04/12/2016 NESS ESCOTO, SOSA Shelby Ot 715.31 LOC OSTEOARTH NOS-SHLDER 04/12/2016 NESS ESCOTO, SOSA Shelby Ot 727.61 ROTATOR CUFF RUPTURE 04/12/2016 NESS ESCOTO, SOSA Shelby Ot 840.7 (SLAP) SUPERIOR GLENOID LABRUM LESIONS 04/12/2016 NESS ESCOTO, SOSA Shelby Ot V72.83 EXAM PRE-OPERATIVE NEC 04/12/2016 Ot G56.02 CARPAL TUNNEL SYNDROME, LEFT UPPER LIMB 04/12/2016 Ot Z01.818 ENCOUNTER FOR OTHER PREPROCEDURAL EXAMIN 04/12/2016 Ot Z11.2 ENCOUNTER FOR SCREENING FOR OTHER BACTER 04/12/2016 RASHEED RAHMAN Ot Z12.31 ENCNTR SCREEN MAMMOGRAM FOR MALIGNANT NE 04/12/2016 MORAIMA NOEL DO Ot Z13.89 ENCOUNTER FOR SCREENING FOR OTHER DISORD 04/12/2016 NESS ESCOTO, SOSA Shelby Ot G56.01 CARPAL TUNNEL SYNDROME, RIGHT UPPER LIMB 04/12/2016 NESS ESCOTO, SOSA Shelby Ot Z01.818 ENCOUNTER FOR OTHER PREPROCEDURAL EXAMIN 04/12/2016 MORAIMA NOEL DO Ot J40 BRONCHITIS, NOT SPECIFIED ACUTE OR CH 04/12/2016 MORAIMA NOEL DO Ot J44.9 CHRONIC OBSTRUCTIVE PULMONARY DISEASE, U 04/12/2016 MORAIMA NOEL DO Ot N39.0 URINARY TRACT INFECTION, SITE NOT SPECIF 04/12/2016 TILLMAN DINO Radu FIELDS Ot R22.31 LOCALIZED SWELLING, MASS AND LUMP, RIGHT 04/12/2016 RASHEED RAHMAN Ot Z12.31 ENCNTR SCREEN MAMMOGRAM FOR MALIGNANT NE 04/13/2016 RASHEED RAHMAN Ot Z12.31 ENCNTR SCREEN MAMMOGRAM FOR MALIGNANT NE 04/13/2016 LAURA ROBLERO MD Ot E78.00 PURE HYPERCHOLESTEROLEMIA, UNSPECIFIED 04/13/2016 LAURA ROBLERO MD Ot E86.0 DEHYDRATION 04/13/2016 LAURA ROBLERO MD Ot F17.210 NICOTINE DEPENDENCE, CIGARETTES, UNCOMPL 04/13/2016 LAURA ROBLERO MD Ot F41.9 ANXIETY DISORDER, UNSPECIFIED 04/13/2016 LAURA ROBLERO MD Ot I10 ESSENTIAL (PRIMARY) HYPERTENSION 04/13/2016 LAURA ROBLERO MD Ot I95.9 HYPOTENSION, UNSPECIFIED 04/13/2016 LAURA ROBLERO MD, Ot J44.9 CHRONIC OBSTRUCTIVE PULMONARY DISEASE, U 04/13/2016 LAURA ROBLERO MD, Ot J45.909 UNSPECIFIED ASTHMA, UNCOMPLICATED 04/13/2016 LAURA ROBLERO MD, Ot K21.9 GASTRO-ESOPHAGEAL REFLUX DISEASE WITHOUT 04/13/2016 LAURA ROBLERO MD Ot L40.9 PSORIASIS, UNSPECIFIED 04/13/2016 LAURA ROBLERO MD Ot M19.90 UNSPECIFIED OSTEOARTHRITIS, UNSPECIFIED 04/13/2016 LAURA ROBLERO MD Ot M54.9 DORSALGIA, UNSPECIFIED 04/13/2016 LAURA ROBLERO MD Ot N17.9 ACUTE KIDNEY FAILURE, UNSPECIFIED 04/13/2016 LAURA ROBLERO MD, Ot N31.9 NEUROMUSCULAR DYSFUNCTION OF BLADDER, UN 04/13/2016 LAURA ROBLERO MD Ot Z96.651 PRESENCE OF RIGHT ARTIFICIAL KNEE JOINT 06/01/2016 JOSIAH, RASHEED POSTMASTER RELIEF Ot Z12.31 ENCNTR SCREEN MAMMOGRAM FOR MALIGNANT NE 07/13/2016 YAMILET SEGAL MD Ot E87.6 HYPOKALEMIA 07/13/2016 YAMILET SEGAL MD Ot F15.10 OTHER STIMULANT ABUSE, UNCOMPLICATED 07/13/2016 YAMILET SEGAL MD Ot F17.210 NICOTINE DEPENDENCE, CIGARETTES, UNCOMPL 07/13/2016 YAMILET SEGAL MD Ot F41.9 ANXIETY DISORDER, UNSPECIFIED 07/13/2016 YAMILET SEGAL MD Ot I10 ESSENTIAL (PRIMARY) HYPERTENSION 07/13/2016 YAMILET SEGAL MD Ot J44.9 CHRONIC OBSTRUCTIVE PULMONARY DISEASE, U 07/13/2016 YAMILET SEGAL MD Ot J45.909 UNSPECIFIED ASTHMA, UNCOMPLICATED 07/13/2016 YAMILET SEGAL MD Ot K21.9 GASTRO-ESOPHAGEAL REFLUX DISEASE WITHOUT 07/13/2016 YAMILET SEGAL MD Ot L08.9 LOCAL INFECTION OF THE SKIN AND SUBCUTAN 07/13/2016 YAMILET SEGAL MD Ot M19.91 PRIMARY OSTEOARTHRITIS, UNSPECIFIED SITE 07/13/2016 YAMILET SEGAL MD Ot M54.2 CERVICALGIA 07/13/2016 YAMILET SEGAL MD Ot M54.9 DORSALGIA, UNSPECIFIED 07/13/2016 YAMILET SEGAL MD Ot N31.9 NEUROMUSCULAR DYSFUNCTION OF BLADDER, UN 07/13/2016 YAMILET SEGAL MD Ot R51 HEADACHE 07/13/2016 YAMILET SEGAL MD Ot Z91.81 HISTORY OF FALLING 07/13/2016 YAMILET SEGAL MD Ot E87.6 HYPOKALEMIA 07/13/2016 YAMILET SEGAL MD Ot F15.10 OTHER STIMULANT ABUSE, UNCOMPLICATED 07/13/2016 YAMILET SEGAL MD Ot F17.210 NICOTINE DEPENDENCE, CIGARETTES, UNCOMPL 07/13/2016 YAMILET SEGAL MD Ot F41.9 ANXIETY DISORDER, UNSPECIFIED 07/13/2016 YAMILET SEGAL MD Ot I10 ESSENTIAL (PRIMARY) HYPERTENSION 07/13/2016 YAMILET SEGAL MD Ot J44.9 CHRONIC OBSTRUCTIVE PULMONARY DISEASE, U 07/13/2016 YAMILET SEGAL MD Ot J45.909 UNSPECIFIED ASTHMA, UNCOMPLICATED 07/13/2016 YAMILET SEGAL MD Ot K21.9 GASTRO-ESOPHAGEAL REFLUX DISEASE WITHOUT 07/13/2016 YAMILET SEGAL MD Ot L08.9 LOCAL INFECTION OF THE SKIN AND SUBCUTAN 07/13/2016 YAMILET SEGAL MD Ot M19.91 PRIMARY OSTEOARTHRITIS, UNSPECIFIED SITE 07/13/2016 YAMILET SEGAL MD Ot M54.2 CERVICALGIA 07/13/2016 YAMILET SEGAL MD, Ot M54.9 DORSALGIA, UNSPECIFIED 07/13/2016 YAMILET SEGAL MD Ot N31.9 NEUROMUSCULAR DYSFUNCTION OF BLADDER, UN 07/13/2016 YAMILET SEGAL MD Ot R51 HEADACHE 07/13/2016 YAMILET SEGAL MD Ot Z91.81 HISTORY OF FALLING 07/13/2016 YAMILET SEGAL MD Ot E87.6 HYPOKALEMIA 07/13/2016 YAMILET SEGAL MD Ot F15.10 OTHER STIMULANT ABUSE, UNCOMPLICATED 07/13/2016 YAMILET SEGAL MD Ot F17.210 NICOTINE DEPENDENCE, CIGARETTES, UNCOMPL 07/13/2016 YAMILET SEGAL MD Ot F41.9 ANXIETY DISORDER, UNSPECIFIED 07/13/2016 YAMILET SEGAL MD Ot I10 ESSENTIAL (PRIMARY) HYPERTENSION 07/13/2016 YAMILET SEGAL MD Ot J44.9 CHRONIC OBSTRUCTIVE PULMONARY DISEASE, U 07/13/2016 YAMILET SEGAL MD Ot J45.909 UNSPECIFIED ASTHMA, UNCOMPLICATED 07/13/2016 YAMILET SEGAL MD Ot K21.9 GASTRO-ESOPHAGEAL REFLUX DISEASE WITHOUT 07/13/2016 YAMILET SEGAL MD Ot L08.9 LOCAL INFECTION OF THE SKIN AND SUBCUTAN 07/13/2016 YAMILET SEGAL MD Ot M19.91 PRIMARY OSTEOARTHRITIS, UNSPECIFIED SITE 07/13/2016 YAMILET SEGAL MD Ot M54.2 CERVICALGIA 07/13/2016 YAMILET SEGAL MD Ot M54.9 DORSALGIA, UNSPECIFIED 07/13/2016 YAMILET SEGAL MD Ot N31.9 NEUROMUSCULAR DYSFUNCTION OF BLADDER, UN 07/13/2016 YAMILET SEGAL MD Ot R51 HEADACHE 07/13/2016 YAMILET SEGAL MD Ot Z91.81 HISTORY OF FALLING 07/13/2016 YAMILET SEGAL MD Ot E87.6 HYPOKALEMIA 07/13/2016 YAMILET SEGAL MD Ot F15.10 OTHER STIMULANT ABUSE, UNCOMPLICATED 07/13/2016 YAMILET SEGAL MD Ot F17.210 NICOTINE DEPENDENCE, CIGARETTES, UNCOMPL 07/13/2016 YAMILET SEGAL MD Ot F41.9 ANXIETY DISORDER, UNSPECIFIED 07/13/2016 YAMILET SEGAL MD Ot I10 ESSENTIAL (PRIMARY) HYPERTENSION 07/13/2016 YAMILET SEGAL MD Ot J44.9 CHRONIC OBSTRUCTIVE PULMONARY DISEASE, U 07/13/2016 YAMILET SEGAL MD Ot J45.909 UNSPECIFIED ASTHMA, UNCOMPLICATED 07/13/2016 YAMILET SEGAL MD Ot K21.9 GASTRO-ESOPHAGEAL REFLUX DISEASE WITHOUT 07/13/2016 YAMILET SEGAL MD Ot L08.9 LOCAL INFECTION OF THE SKIN AND SUBCUTAN 07/13/2016 YAMILET SEGAL MD Ot M19.91 PRIMARY OSTEOARTHRITIS, UNSPECIFIED SITE 07/13/2016 YAMILET SEGAL MD Ot M54.2 CERVICALGIA 07/13/2016 YAMILET SEGAL MD Ot M54.9 DORSALGIA, UNSPECIFIED 07/13/2016 YAMILET SEGAL MD Ot N31.9 NEUROMUSCULAR DYSFUNCTION OF BLADDER, UN 07/13/2016 YAMILET SEGAL MD Ot R51 HEADACHE 07/13/2016 YAMILET ESGAL MD Ot Z91.81 HISTORY OF FALLING 07/14/2016 YAMILET SEGAL MD Ot E87.6 HYPOKALEMIA 07/14/2016 YAMILET SEGAL MD Ot F15.10 OTHER STIMULANT ABUSE, UNCOMPLICATED 07/14/2016 YAMILET SEGAL MD Ot F17.210 NICOTINE DEPENDENCE, CIGARETTES, UNCOMPL 07/14/2016 YAMILET SEGAL MD Ot F41.9 ANXIETY DISORDER, UNSPECIFIED 07/14/2016 YAMILET SEGAL MD Ot I10 ESSENTIAL (PRIMARY) HYPERTENSION 07/14/2016 YAMILET SEGAL MD Ot J44.9 CHRONIC OBSTRUCTIVE PULMONARY DISEASE, U 07/14/2016 YAMILET SEGAL MD Ot J45.909 UNSPECIFIED ASTHMA, UNCOMPLICATED 07/14/2016 YAMILET SEGAL MD Ot K21.9 GASTRO-ESOPHAGEAL REFLUX DISEASE WITHOUT 07/14/2016 YAMILET SEGAL MD Ot L08.9 LOCAL INFECTION OF THE SKIN AND SUBCUTAN 07/14/2016 YAMILET SEGAL MD Ot M19.91 PRIMARY OSTEOARTHRITIS, UNSPECIFIED SITE 07/14/2016 YAMILET SEGAL MD Ot M54.2 CERVICALGIA 07/14/2016 YAMILET SEGAL MD Ot M54.9 DORSALGIA, UNSPECIFIED 07/14/2016 YAMILET SEGAL MD Ot N31.9 NEUROMUSCULAR DYSFUNCTION OF BLADDER, UN 07/14/2016 YAMILET SEGAL MD Ot R51 HEADACHE 07/14/2016 YAMILET SEGAL MD Ot Z91.81 HISTORY OF FALLING 07/14/2016 YAMILET SEGAL MD Ot E87.6 HYPOKALEMIA 07/14/2016 YAMILET SEGAL MD Ot F15.10 OTHER STIMULANT ABUSE, UNCOMPLICATED 07/14/2016 YAMILET SEGAL MD Ot F17.210 NICOTINE DEPENDENCE, CIGARETTES, UNCOMPL 07/14/2016 YAMILET SEGAL MD Ot F41.9 ANXIETY DISORDER, UNSPECIFIED 07/14/2016 YAMILET SEGAL MD Ot I10 ESSENTIAL (PRIMARY) HYPERTENSION 07/14/2016 YAMILET SEGAL MD Ot J44.9 CHRONIC OBSTRUCTIVE PULMONARY DISEASE, U 07/14/2016 YAMILET SEGAL MD Ot J45.909 UNSPECIFIED ASTHMA, UNCOMPLICATED 07/14/2016 YAMILET SEGAL MD Ot K21.9 GASTRO-ESOPHAGEAL REFLUX DISEASE WITHOUT 07/14/2016 YAMILET SEGAL MD Ot L08.9 LOCAL INFECTION OF THE SKIN AND SUBCUTAN 07/14/2016 YAMILET SEGAL MD Ot M19.91 PRIMARY OSTEOARTHRITIS, UNSPECIFIED SITE 07/14/2016 YAMILET SEGAL MD Ot M54.2 CERVICALGIA 07/14/2016 YAMILET SEGAL MD Ot M54.9 DORSALGIA, UNSPECIFIED 07/14/2016 YAMILET SEGAL MD Ot N31.9 NEUROMUSCULAR DYSFUNCTION OF BLADDER, UN 07/14/2016 YAMILET SEGAL MD Ot R51 HEADACHE 07/14/2016 YAMILET SEGAL MD Ot Z91.81 HISTORY OF FALLING 07/14/2016 YAMILET SEGAL MD Ot E87.6 HYPOKALEMIA 07/14/2016 YAMILET SEGAL MD Ot F15.10 OTHER STIMULANT ABUSE, UNCOMPLICATED 07/14/2016 YAMILET SEGAL MD Ot F17.210 NICOTINE DEPENDENCE, CIGARETTES, UNCOMPL 07/14/2016 YAMILET SEGAL MD Ot F41.9 ANXIETY DISORDER, UNSPECIFIED 07/14/2016 YAMILET SEGAL MD Ot I10 ESSENTIAL (PRIMARY) HYPERTENSION 07/14/2016 YAMILET SEGAL MD Ot J44.9 CHRONIC OBSTRUCTIVE PULMONARY DISEASE, U 07/14/2016 YAMILET SEGAL MD Ot J45.909 UNSPECIFIED ASTHMA, UNCOMPLICATED 07/14/2016 YAMILET SEGAL MD Ot K21.9 GASTRO-ESOPHAGEAL REFLUX DISEASE WITHOUT 07/14/2016 YAMILET SEGAL MD Ot L08.9 LOCAL INFECTION OF THE SKIN AND SUBCUTAN 07/14/2016 YAMILET SEGAL MD Ot M19.91 PRIMARY OSTEOARTHRITIS, UNSPECIFIED SITE 07/14/2016 YAMILET SEGAL MD Ot M54.2 CERVICALGIA 07/14/2016 YAMILET SEGAL MD Ot M54.9 DORSALGIA, UNSPECIFIED 07/14/2016 YAMILET SEGAL MD Ot N31.9 NEUROMUSCULAR DYSFUNCTION OF BLADDER, UN 07/14/2016 YAMILET SEGAL MD Ot R51 HEADACHE 07/14/2016 YAMILET SEGAL MD Ot Z91.81 HISTORY OF FALLING 07/15/2016 YAMILET SEGAL MD Ot E87.6 HYPOKALEMIA 07/15/2016 YAMILET SEGAL MD Ot F15.10 OTHER STIMULANT ABUSE, UNCOMPLICATED 07/15/2016 YAMILET SEGAL MD Ot F17.210 NICOTINE DEPENDENCE, CIGARETTES, UNCOMPL 07/15/2016 YAMILET SEGAL MD Ot F41.9 ANXIETY DISORDER, UNSPECIFIED 07/15/2016 YAMILET SEGAL MD Ot I10 ESSENTIAL (PRIMARY) HYPERTENSION 07/15/2016 YAMILET SEGAL MD Ot J44.9 CHRONIC OBSTRUCTIVE PULMONARY DISEASE, U 07/15/2016 YAMILET SEGAL MD Ot J45.909 UNSPECIFIED ASTHMA, UNCOMPLICATED 07/15/2016 YAMILET SEGAL MD Ot K21.9 GASTRO-ESOPHAGEAL REFLUX DISEASE WITHOUT 07/15/2016 YAMILET SEGAL MD Ot L08.9 LOCAL INFECTION OF THE SKIN AND SUBCUTAN 07/15/2016 YAMILET SEGAL MD Ot M19.91 PRIMARY OSTEOARTHRITIS, UNSPECIFIED SITE 07/15/2016 YAMILET SEGAL MD Ot M54.2 CERVICALGIA 07/15/2016 YAMILET SEGAL MD, Ot M54.9 DORSALGIA, UNSPECIFIED 07/15/2016 YAMILET SEGAL MD Ot N31.9 NEUROMUSCULAR DYSFUNCTION OF BLADDER, UN 07/15/2016 YAMILET SEGAL MD Ot R51 HEADACHE 07/15/2016 YAMILET SEGAL MD Ot Z91.81 HISTORY OF FALLING 07/15/2016 YAMILET SEGAL MD Ot E87.6 HYPOKALEMIA 07/15/2016 YAMILET SEGAL MD Ot F15.10 OTHER STIMULANT ABUSE, UNCOMPLICATED 07/15/2016 YAMILET SEGAL MD Ot F17.210 NICOTINE DEPENDENCE, CIGARETTES, UNCOMPL 07/15/2016 YAMILET SEGAL MD Ot F32.9 MAJOR DEPRESSIVE DISORDER, SINGLE EPISOD 07/15/2016 YAMILET SEGAL MD, Ot F41.9 ANXIETY DISORDER, UNSPECIFIED 07/15/2016 YAMILET SEGAL MD Ot I10 ESSENTIAL (PRIMARY) HYPERTENSION 07/15/2016 YAMILET SEGAL MD Ot J44.9 CHRONIC OBSTRUCTIVE PULMONARY DISEASE, U 07/15/2016 YAMILET SEGAL MD Ot J45.909 UNSPECIFIED ASTHMA, UNCOMPLICATED 07/15/2016 YAMILET SEGAL MD Ot K21.9 GASTRO-ESOPHAGEAL REFLUX DISEASE WITHOUT 07/15/2016 YAMILET SEGAL MD Ot L03.116 CELLULITIS OF LEFT LOWER LIMB 07/15/2016 YAMILET SEGAL MD Ot L08.9 LOCAL INFECTION OF THE SKIN AND SUBCUTAN 07/15/2016 YAMILET SEGAL MD Ot L97.129 NON-PRESSURE CHRONIC ULCER OF LEFT THIGH 07/15/2016 YAMILET SEGAL MD Ot M19.91 PRIMARY OSTEOARTHRITIS, UNSPECIFIED SITE 07/15/2016 YAMILET SEGAL MD Ot M54.2 CERVICALGIA 07/15/2016 YAMILET SEGAL MD, Ot M54.9 DORSALGIA, UNSPECIFIED 07/15/2016 YAMILET SEGAL MD Ot N31.9 NEUROMUSCULAR DYSFUNCTION OF BLADDER, UN 07/15/2016 GAULT MD, YAMILET R Ot N61.0 MASTITIS WITHOUT ABSCESS 07/15/2016 LUZMA ESCOTO, YAMILET R Ot R51 HEADACHE 07/15/2016 LUZMA ESCOTO, YAMILET R Ot T43.621A POISONING BY AMPHETAMINES, ACCIDENTAL (U 07/15/2016 LUZMA ESCOTO, YAMILET R Ot Z91.81 HISTORY OF FALLING 07/29/2016 Ot 715.36 LOC OSTEOARTH NOS-L/LEG 07/29/2016 Ot 791.9 ABN URINE FINDINGS NEC 07/29/2016 Ot V57.1 PHYSICAL THERAPY NEC 07/29/2016 Ot V57.21 ENCOUNTER FOR OCCUPATIONAL THERAPY 07/29/2016 Ot V72.63 PRE- PROCEDURAL LABORATORY EXAMINATION 07/29/2016 Ot V74.8 SCREEN- BACTERIAL DIS NEC 07/29/2016 RASHEED RAHMAN Ot V76.12 OTH SCREEN MAMMO-MALIGN NEOPLASM OF SAMANTHA 07/29/2016 RASHEED RAHMAN Ot V76.12 OTH SCREEN MAMMO-MALIGN NEOPLASM OF SAMANTHA 07/29/2016 JAMIE BRASHER MD Ot V72.84 EXAM PRE-OPERATIVE NOS 07/29/2016 SOSA ARZOLA MD Ot 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 PATELLAE 07/29/2016 SOSA ARZOLA MD Ot V72.84 EXAM PRE-OPERATIVE NOS 07/29/2016 SOSA ARZOLA MD Ot V74.8 SCREEN-BACTERIAL DIS NEC 07/29/2016 SOSA ARZOLA MD Ot 727.61 ROTATOR CUFF RUPTURE 07/29/2016 RYAN JONES MD Ot 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 07/29/2016 RYAN JONES MD Ot 788.30 UNSPECIFIED URINARY INCONTINENCE 07/29/2016 RYAN JONES MD Ot V72.84 EXAM PRE-OPERATIVE NOS 07/29/2016 RYAN JONES MD Ot V74.8 SCREEN-BACTERIAL DIS NEC 07/29/2016 MORAIMA NOEL DO Ot 719.46 JOINT PAIN-L/LEG 07/29/2016 MORAIMA NOEL DO Ot 724.2 LUMBAGO 07/29/2016 MORAIMA NOEL DO Ot 959.7 LOWER LEG INJURY NOS 07/29/2016 MORAIMA NOEL DO Ot E000.8 OTHER EXTERNAL CAUSE STATUS 07/29/2016 MORAIMA NOEL DO Sunni Ot E849.0 ACCIDENT IN HOME 07/29/2016 BERT HDEZ MORAIMA Moeller Ot E888.9 FALL NOS 07/29/2016 BERT HDEZ MORAIMA Moeller Ot 789.01 ABDOMINAL PAIN, RIGHT UPPER QUADRANT 07/29/2016 BERT HDEZMORAIMA Ot 575.8 DIS OF GALLBLADDER NEC 07/29/2016 RUFINA ESCOTO, NARAYAN Marr Ot 575.8 DIS OF GALLBLADDER NEC 07/29/2016 RUFINA ESCOTO, NARAYAN Marr Ot V72.63 PRE-PROCEDURAL LABORATORY EXAMINATION 07/29/2016 RUFINA ESCOTO, NARAYAN Marr Ot V72.81 [id number] CARDIOVASCULAR 07/29/2016 RUFINA ESCOTO, NARAYAN Marr Ot V74.8 SCREEN-BACTERIAL DIS NEC 07/29/2016 NESS ESCOTO, SOSA Shelby Ot 715.31 LOC OSTEOARTH NOS-SHLDER 07/29/2016 NESS ESCOTO, SOSA Shelby Ot 727.61 ROTATOR CUFF RUPTURE 07/29/2016 NESS ESCOTO, SOSA Shelby Ot 840.7 (SLAP) SUPERIOR GLENOID LABRUM LESIONS 07/29/2016 NESS ESCOTO, SOSA Shelby Ot V72.83 EXAM PRE-OPERATIVE NEC 07/29/2016 Ot G56.02 CARPAL TUNNEL SYNDROME, LEFT UPPER LIMB 07/29/2016 Ot Z01.818 ENCOUNTER FOR OTHER PREPROCEDURAL EXAMIN 07/29/2016 Ot Z11.2 ENCOUNTER FOR SCREENING FOR OTHER BACTER 07/29/2016 RASHEED RAHMAN Ot Z12.31 ENCNTR SCREEN MAMMOGRAM FOR MALIGNANT NE 07/29/2016 BERT HDEZMORAIMA Ot Z13.89 ENCOUNTER FOR SCREENING FOR OTHER DISORD 07/29/2016 NESS ESCOTO, SOSA Shelby Ot G56.01 CARPAL TUNNEL SYNDROME, RIGHT UPPER LIMB 07/29/2016 NESS ESCOTO, SOSA Shelby Ot Z01.818 ENCOUNTER FOR OTHER PREPROCEDURAL EXAMIN 07/29/2016 TRAVISYOUSUFEPIFANIO MORAIMA HDEZ Ot J40 BRONCHITIS, NOT SPECIFIED ACUTE OR CH 07/29/2016 TRAVISYOUSUFEPIFANIO MORAIMA HDEZ Ot J44.9 CHRONIC OBSTRUCTIVE PULMONARY DISEASE, U 07/29/2016 TRAVISYOUSUFLLOYDMORAIMA Ot N39.0 URINARY TRACT INFECTION, SITE NOT SPECIF 07/29/2016 DINO TILLMAN DIAMOND Ot R22.31 LOCALIZED SWELLING, MASS AND LUMP, RIGHT 07/29/2016 RASHEED RAHMAN Ot Z12.31 ENCNTR SCREEN MAMMOGRAM FOR MALIGNANT NE 07/31/2016 SOSA ARZOLA MD Ot M75.121 COMPLETE ROTATR-CUFF TEAR/RUPTR OF R JOSSY 08/03/2016 SOSA ARZOLA MD Ot M75.121 COMPLETE ROTATR-CUFF TEAR/RUPTR OF R JOSSY 08/04/2016 SOSA ARZOLA MD Ot M75.121 COMPLETE ROTATR-CUFF TEAR/RUPTR OF R JOSSY 08/21/2016 SOSA ARZOLA MD Ot M75.121 COMPLETE ROTATR-CUFF TEAR/RUPTR OF R JOSSY 08/25/2016 SOSA ARZOLA MD Ot M75.121 COMPLETE ROTATR-CUFF TEAR/RUPTR OF R JOSSY 09/05/2016 SOSA RESENDIZ MD Ot F15.10 OTHER STIMULANT ABUSE, UNCOMPLICATED 09/05/2016 SOSA RESENDIZ MD Ot L03.818 CELLULITIS OF OTHER SITES 09/05/2016 SOSA RESENDIZ MD Ot L97.122 NON-PRESSURE CHRONIC ULCER OF LEFT THIGH 09/08/2016 SOSA RESENDIZ MD Ot F15.10 OTHER STIMULANT ABUSE, UNCOMPLICATED 09/08/2016 SOSA RESENDIZ MD Ot L03.818 CELLULITIS OF OTHER SITES 09/08/2016 SOSA RESENDIZ MD Ot L97.122 NON-PRESSURE CHRONIC ULCER OF LEFT THIGH 10/25/2016 Ot 715.36 LOC OSTEOARTH NOS-L/LEG 10/25/2016 Ot 791.9 ABN URINE FINDINGS NEC 10/25/2016 Ot V57.1 PHYSICAL THERAPY NEC 10/25/2016 Ot V57.21 ENCOUNTER FOR OCCUPATIONAL THERAPY 10/25/2016 Ot V72.63 PRE- PROCEDURAL LABORATORY EXAMINATION 10/25/2016 Ot V74.8 SCREEN- BACTERIAL DIS NEC 10/25/2016 RASHEED RAHMAN Ot V76.12 OTH SCREEN MAMMO-MALIGN NEOPLASM OF SAMANTHA 10/25/2016 RASHEED RAHMAN Ot V76.12 OTH SCREEN MAMMO-MALIGN NEOPLASM OF SAMANTHA 10/25/2016 JAMIE BRASHER MD Ot V72.84 EXAM PRE-OPERATIVE NOS 10/25/2016 NESS ESCOTO, SOSA Shelby Ot 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 PATELLAE 10/25/2016 NESS ESCOTO, SOSA Shelby Ot V72.84 EXAM PRE-OPERATIVE NOS 10/25/2016 NESS ESCOTO, SOSA Shelby Ot V74.8 SCREEN-BACTERIAL DIS NEC 10/25/2016 NESS ESCOTO, SOSA Shelby Ot 727.61 ROTATOR CUFF RUPTURE 10/25/2016 KAREN ESCOTO, RYAN Moeller Ot 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 10/25/2016 KAREN ESCOTO, RYAN Moeller Ot 788.30 UNSPECIFIED URINARY INCONTINENCE 10/25/2016 KAREN ESCOTO, RYAN Moeller Ot V72.84 EXAM PRE-OPERATIVE NOS 10/25/2016 KAREN ESCOTO, RYAN Moeller Ot V74.8 SCREEN-BACTERIAL DIS NEC 10/25/2016 BERT HDEZ, MORAIMA Sunni Ot 719.46 JOINT PAIN-L/LEG 10/25/2016 BERT DOMORAIMA Ot 724.2 LUMBAGO 10/25/2016 TRAVISLENDER DO, MORAIMA Moeller Ot 959.7 LOWER LEG INJURY NOS 10/25/2016 BERT HDEZ, MORAIMA Sunni Ot E000.8 OTHER EXTERNAL CAUSE STATUS 10/25/2016 BERT HDEZ, MORAIMA Moeller Ot E849.0 ACCIDENT IN HOME 10/25/2016 BERT HDEZMORAIMA Ot E888.9 FALL NOS 10/25/2016 MORAIMA NOEL DO Ot 789.01 ABDOMINAL PAIN, RIGHT UPPER QUADRANT 10/25/2016 BERT HDEZMORAIMA Ot 575.8 DIS OF GALLBLADDER NEC 10/25/2016 RUFINA ESCOTO, NARAYAN Marr Ot 575.8 DIS OF GALLBLADDER NEC 10/25/2016 RUFINA ESCOTO, NARAYAN Marr Ot V72.63 PRE-PROCEDURAL LABORATORY EXAMINATION 10/25/2016 RUFINA ESCOTO, NARAYAN Marr Ot V72.81 [id number] CARDIOVASCULAR 10/25/2016 RUFINA ESCOTO, NARAYAN Marr Ot V74.8 SCREEN-BACTERIAL DIS NEC 10/25/2016 NESS ESCOTO, SOSA Shelby Ot 715.31 LOC OSTEOARTH NOS-SHLDER 10/25/2016 NESS ESCOTO, SOSA Shelby Ot 727.61 ROTATOR CUFF RUPTURE 10/25/2016 SOSA ARZOLA MD Ot 840.7 (SLAP) SUPERIOR GLENOID LABRUM LESIONS 10/25/2016 SOSA ARZOLA MD Ot V72.83 EXAM PRE-OPERATIVE NEC 10/25/2016 Ot G56.02 CARPAL TUNNEL SYNDROME, LEFT UPPER LIMB 10/25/2016 Ot Z01.818 ENCOUNTER FOR OTHER PREPROCEDURAL EXAMIN 10/25/2016 Ot Z11.2 ENCOUNTER FOR SCREENING FOR OTHER BACTER 10/25/2016 RASHEED RAHMAN Ot Z12.31 ENCNTR SCREEN MAMMOGRAM FOR MALIGNANT NE 10/25/2016 MORAIMA NOEL DO Ot Z13.89 ENCOUNTER FOR SCREENING FOR OTHER DISORD 10/25/2016 SOSA ARZOLA MD Ot G56.01 CARPAL TUNNEL SYNDROME, RIGHT UPPER LIMB 10/25/2016 SOSA ARZOLA MD Ot Z01.818 ENCOUNTER FOR OTHER PREPROCEDURAL EXAMIN 10/25/2016 MORAIMA NOEL DO Ot J40 BRONCHITIS, NOT SPECIFIED ACUTE OR CH 10/25/2016 MORAIMA NOEL DO Ot J44.9 CHRONIC OBSTRUCTIVE PULMONARY DISEASE, U 10/25/2016 MORAIMA NOEL DO Ot N39.0 URINARY TRACT INFECTION, SITE NOT SPECIF 10/25/2016 DINO TILLMAN Ot R22.31 LOCALIZED SWELLING, MASS AND LUMP, RIGHT 10/25/2016 RASHEED RAHMAN Ot Z12.31 ENCNTR SCREEN MAMMOGRAM FOR MALIGNANT NE 10/25/2016 SOSA ARZOLA MD Ot M75.121 COMPLETE ROTATR-CUFF TEAR/RUPTR OF R JOSSY 10/31/2016 MEDARDO DUFFY MD Ot Z51.81 ENCOUNTER FOR THERAPEUTIC DRUG LEVEL MON 10/31/2016 MEDARDO DUFFY MD Ot Z79.899 OTHER PENITENTIARY (CURRENT) DRUG THERAPY 11/17/2016 MEDARDO DUFFY MD Ot Z51.81 ENCOUNTER FOR THERAPEUTIC DRUG LEVEL MON 11/17/2016 MEDARDO DUFFY MD Ot Z79.899 OTHER ANIMAL GENETICIST (CURRENT) DRUG THERAPY 11/21/2016 MEDARDO DUFFY MD Ot Z51.81 ENCOUNTER FOR THERAPEUTIC DRUG LEVEL MON 11/21/2016 MEDARDO DUFFY MD Ot Z79.899 OTHER ANIMAL GENETICIST (CURRENT) DRUG THERAPY 05/01/2017 JOSIAH, RASHEED POSTMASTER RELIEF Ot V76.12 OTH SCREEN MAMMO-MALIGN NEOPLASM OF SAMANTHA 05/01/2017 RASHEED RAHMAN [employer]MA[employer] RELIEF Ot V76.12 OTH SCREEN MAMMO-MALIGN NEOPLASM OF SAMANTHA 05/01/2017 SAMEERA ESCOTO, JAMIE Ot V72.84 EXAM PRE-OPERATIVE NOS 05/01/2017 NESS ESCOTO, SOSA Shelby Ot 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 PATELLAE 05/01/2017 NESS ESCOTO, SOSA Shelby Ot V72.84 EXAM PRE-OPERATIVE NOS 05/01/2017 NESS ESCOTO, SOSA Shelby Ot V74.8 SCREEN-BACTERIAL DIS NEC 05/01/2017 NESS ESCOTO, SOSA Shelby Ot 727.61 ROTATOR CUFF RUPTURE 05/01/2017 KAREN ESCOTO, RYAN Moeller Ot 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 05/01/2017 KAREN ESCOTO, RYAN Moeller Ot 788.30 UNSPECIFIED URINARY INCONTINENCE 05/01/2017 KAREN ESCOTO, RYAN Moeller Ot V72.84 EXAM PRE-OPERATIVE NOS 05/01/2017 KAREN ESCOTO, RYAN Moeller Ot V74.8 SCREEN-BACTERIAL DIS NEC 05/01/2017 GELYOUSUFDER DO, MORAIMA Moeller Ot 719.46 JOINT PAIN-L/LEG 05/01/2017 MORAIMA NOEL DO Ot 724.2 LUMBAGO 05/01/2017 MAXIMUSEPIFANIO MORAIMA HDEZ A Ot 959.7 LOWER LEG INJURY NOS 05/01/2017 BERT HDEZ MORAIMA A Ot E000.8 OTHER EXTERNAL CAUSE STATUS 05/01/2017 BERT HDEZ MORAIMA A Ot E849.0 ACCIDENT IN HOME 05/01/2017 BERT MORAIMA HDEZ Ot E888.9 FALL NOS 05/01/2017 BERT HDEZ, MORAIMA A Ot 789.01 ABDOMINAL PAIN, RIGHT UPPER QUADRANT 05/01/2017 GELYOUSUFDER DOMORAIMA A Ot 575.8 DIS OF GALLBLADDER NEC 05/01/2017 RUFINA ESCOTO, NARAYAN Marr Ot 575.8 DIS OF GALLBLADDER NEC 05/01/2017 RUFINA ESCOTO, NARAYAN Marr Ot V72.63 PRE-PROCEDURAL LABORATORY EXAMINATION 05/01/2017 RUFINA ESCOTO, NARAYAN Marr Ot V72.81 [id number] CARDIOVASCULAR 05/01/2017 RUFINA ESCOTO, NARAYAN Marr Ot V74.8 SCREEN-BACTERIAL DIS NEC 05/01/2017 SOSA ARZOLA MD Ot 715.31 LOC OSTEOARTH NOS-SHLDER 05/01/2017 SOSA ARZOLA MD Ot 727.61 ROTATOR CUFF RUPTURE 05/01/2017 SOSA ARZOLA MD Ot 840.7 (SLAP) SUPERIOR GLENOID LABRUM LESIONS 05/01/2017 SOSA ARZOLA MD Ot V72.83 EXAM PRE-OPERATIVE NEC 05/01/2017 Ot G56.02 CARPAL TUNNEL SYNDROME, LEFT UPPER LIMB 05/01/2017 Ot Z01.818 ENCOUNTER FOR OTHER PREPROCEDURAL EXAMIN 05/01/2017 Ot Z11.2 ENCOUNTER FOR SCREENING FOR OTHER BACTER 05/01/2017 RASHEED RAHMAN Ot Z12.31 ENCNTR SCREEN MAMMOGRAM FOR MALIGNANT NE 05/01/2017 MORAIMA NOEL DO Ot Z13.89 ENCOUNTER FOR SCREENING FOR OTHER DISORD 05/01/2017 SOSA ARZOLA MD Ot G56.01 CARPAL TUNNEL SYNDROME, RIGHT UPPER LIMB 05/01/2017 SOSA ARZOLA MD Ot Z01.818 ENCOUNTER FOR OTHER PREPROCEDURAL EXAMIN 05/01/2017 MORAIMA NOEL DO Ot J40 BRONCHITIS, NOT SPECIFIED ACUTE OR CH 05/01/2017 MORAIMA NOEL DO Ot J44.9 CHRONIC OBSTRUCTIVE PULMONARY DISEASE, U 05/01/2017 MORAIMA NOEL DO Ot N39.0 URINARY TRACT INFECTION, SITE NOT SPECIF 05/01/2017 DINO TILLMAN Ot R22.31 LOCALIZED SWELLING, MASS AND LUMP, RIGHT 05/01/2017 RASHEED RAHMAN Ot Z12.31 ENCNTR SCREEN MAMMOGRAM FOR MALIGNANT NE 05/01/2017 SOSA ARZOLA MD Ot M75.121 COMPLETE ROTATR-CUFF TEAR/RUPTR OF R JOSSY 05/01/2017 MEDARDO DUFFY MD Ot Z51.81 ENCOUNTER FOR THERAPEUTIC DRUG LEVEL MON 05/01/2017 MEDARDO DUFFY MD Ot Z79.899 OTHER ANIMAL GENETICIST (CURRENT) DRUG THERAPY 05/01/2017 MEDARDO DUFFY MD, Ot Z12.31 ENCNTR SCREEN MAMMOGRAM FOR MALIGNANT NE 05/02/2017 PAMELA ESCOTO, JEN Zhong Ot M25.811 OTHER SPECIFIED JOINT DISORDERS, RIGHT S 05/11/2017 JOSEE ESCOTO [facility] [place], ROGER FACP CCDS Ot E78.4 OTHER HYPERLIPIDEMIA 05/11/2017 JOSEE ESCOTO FAC, ROGER FACP CCDS Ot I10 ESSENTIAL (PRIMARY) HYPERTENSION 05/11/2017 JOSEE ESCOTO FAC, ALI FACP CCDS Ot J43.8 OTHER EMPHYSEMA 05/11/2017 JOSEE KIM, ROGER FACP CCDS Ot R06.02 SHORTNESS OF BREATH 05/11/2017 JOSEE KIM, ALI FACP CCDS Ot Z72.0 TOBACCO USE 05/21/2017 RASHEED RAHMAN Ot V76.12 OTH SCREEN MAMMO-MALIGN NEOPLASM OF SAMANTHA 05/21/2017 RASHEED RAHMAN Ot V76.12 OTH SCREEN MAMMO-MALIGN NEOPLASM OF SAMANTHA 05/21/2017 JAMIE BRASHER MD Ot V72.84 EXAM PRE-OPERATIVE NOS 05/21/2017 SOSA ARZOLA MD Ot 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 PATELLAE 05/21/2017 SOSA ARZOLA MD Ot V72.84 EXAM PRE-OPERATIVE NOS 05/21/2017 SOSA ARZOLA MD Ot V74.8 SCREEN-BACTERIAL DIS NEC 05/21/2017 SOSA ARZOLA MD Ot 727.61 ROTATOR CUFF RUPTURE 05/21/2017 RYAN JONES MD Ot 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 05/21/2017 RYAN JONES MD Ot 788.30 UNSPECIFIED URINARY INCONTINENCE 05/21/2017 RYAN JONES MD Ot V72.84 EXAM PRE-OPERATIVE NOS 05/21/2017 RYAN JONES MD Ot V74.8 SCREEN-BACTERIAL DIS NEC 05/21/2017 MORAIMA NOEL DO Ot 719.46 JOINT PAIN-L/LEG 05/21/2017 MORAIMA NOEL DO Ot 724.2 LUMBAGO 05/21/2017 MORAIMA NOEL DO Ot 959.7 LOWER LEG INJURY NOS 05/21/2017 MORAIMA NOEL DO Ot E000.8 OTHER EXTERNAL CAUSE STATUS 05/21/2017 MORAIMA NOEL DO Ot E849.0 ACCIDENT IN HOME 05/21/2017 MORAIMA NOEL DO Ot E888.9 FALL NOS 05/21/2017 MORAIMA NOEL DO Ot 789.01 ABDOMINAL PAIN, RIGHT UPPER QUADRANT 05/21/2017 MORAIMA NOEL DO Ot 575.8 DIS OF GALLBLADDER NEC 05/21/2017 RUFINA ESCOTO, NARAYAN Marr Ot 575.8 DIS OF GALLBLADDER NEC 05/21/2017 RUFINA ESCOTO, NARAYAN Marr Ot V72.63 PRE-PROCEDURAL LABORATORY EXAMINATION 05/21/2017 RUFINA ESCOTO, NARAYAN Marr Ot V72.81 [id number] CARDIOVASCULAR 05/21/2017 RUFINA ESCOTO, NARAYAN Marr Ot V74.8 SCREEN-BACTERIAL DIS NEC 05/21/2017 NESS ESCOTO, SOSA Shelby Ot 715.31 LOC OSTEOARTH NOS-SHLDER 05/21/2017 NESS ESCOTO, SOSA Shelby Ot 727.61 ROTATOR CUFF RUPTURE 05/21/2017 SOSA ARZOLA MD Ot 840.7 (SLAP) SUPERIOR GLENOID LABRUM LESIONS 05/21/2017 SOSA ARZOLA MD Ot V72.83 EXAM PRE-OPERATIVE NEC 05/21/2017 Ot G56.02 CARPAL TUNNEL SYNDROME, LEFT UPPER LIMB 05/21/2017 Ot Z01.818 ENCOUNTER FOR OTHER PREPROCEDURAL EXAMIN 05/21/2017 Ot Z11.2 ENCOUNTER FOR SCREENING FOR OTHER BACTER 05/21/2017 RASHEED RAHMAN Ot Z12.31 ENCNTR SCREEN MAMMOGRAM FOR MALIGNANT NE 05/21/2017 MORAIMA NOEL DO Ot Z13.89 ENCOUNTER FOR SCREENING FOR OTHER DISORD 05/21/2017 NESS ESCOTO, SOSA Shelby Ot G56.01 CARPAL TUNNEL SYNDROME, RIGHT UPPER LIMB 05/21/2017 NESS ESCOTO, SOSA Shelby Ot Z01.818 ENCOUNTER FOR OTHER PREPROCEDURAL EXAMIN 05/21/2017 MORAIMA NOEL DO Ot J40 BRONCHITIS, NOT SPECIFIED ACUTE OR CH 05/21/2017 MORAIMA NOEL DO Ot J44.9 CHRONIC OBSTRUCTIVE PULMONARY DISEASE, U 05/21/2017 MORAIMA NOEL DO Ot N39.0 URINARY TRACT INFECTION, SITE NOT SPECIF 05/21/2017 DINO TILLMAN Ot R22.31 LOCALIZED SWELLING, MASS AND LUMP, RIGHT 05/21/2017 RASHEED RAHMAN Ot Z12.31 ENCNTR SCREEN MAMMOGRAM FOR MALIGNANT NE 05/21/2017 NESS ESCOTO, SOSA Shelby Ot M75.121 COMPLETE ROTATR-CUFF TEAR/RUPTR OF R JOSSY 05/21/2017 MEDARDO DUFFY MD Ot Z51.81 ENCOUNTER FOR THERAPEUTIC DRUG LEVEL MON 05/21/2017 MEDARDO DUFFY MD Ot Z79.899 OTHER ANIMAL GENETICIST (CURRENT) DRUG THERAPY 05/21/2017 MEDARDO DUFFY MD Ot Z12.31 ENCNTR SCREEN MAMMOGRAM FOR MALIGNANT NE 05/21/2017 JEN SANTIAGO MD Ot M25.811 OTHER SPECIFIED JOINT DISORDERS, RIGHT S 05/21/2017 JOSEE ESCOTO FACC, ALI FACP CCDS Ot E78.4 OTHER HYPERLIPIDEMIA 05/21/2017 JOSEE KIMC, ALI FACP CCDS Ot I10 ESSENTIAL (PRIMARY) HYPERTENSION 05/21/2017 JOSEE KIMC, ALI FACP CCDS Ot J43.8 OTHER EMPHYSEMA 05/21/2017 JOSEE KIMC, ALI FACP CCDS Ot R06.02 SHORTNESS OF BREATH 05/21/2017 JOSEE KIMC, ALI FACP CCDS Ot Z72.0 TOBACCO USE 05/22/2017 JEN SANTIAGO MD Ot M25.811 OTHER SPECIFIED JOINT DISORDERS, RIGHT S 05/29/2017 MEDARDO DUFFY MD Ot Z12.31 ENCNTR SCREEN MAMMOGRAM FOR MALIGNANT NE 05/30/2017 JEN SANTIAGO MD Ot M25.811 OTHER SPECIFIED JOINT DISORDERS, RIGHT S 05/30/2017 JEN SANTIAGO MD Ot M25.512 PAIN IN LEFT SHOULDER 05/30/2017 JEN SANTIAGO MD Ot Z47.89 ENCOUNTER FOR OTHER ORTHOPEDIC AFTERCARE 06/01/2017 JOSEE ESCOTO FACC, ALI FACP CCDS Ot E78.4 OTHER HYPERLIPIDEMIA 06/01/2017 JOSEE KIMC, ALI FACP CCDS Ot I10 ESSENTIAL (PRIMARY) HYPERTENSION 06/01/2017 JOSEE ESCOTO FACC, ALI FACP CCDS Ot J43.8 OTHER EMPHYSEMA 06/01/2017 JOSEE KIMC, ALI FACP CCDS Ot R06.02 SHORTNESS OF BREATH 06/01/2017 JOSEE KIMC, ALI FACP CCDS Ot Z72.0 TOBACCO USE 06/05/2017 MEDARDO DUFFY MD Ot Z12.31 ENCNTR SCREEN MAMMOGRAM FOR MALIGNANT NE 06/05/2017 JEN SANTIAGO MD Ot M25.512 PAIN IN LEFT SHOULDER 06/05/2017 JEN SANTIAGO MD Ot Z47.89 ENCOUNTER FOR OTHER ORTHOPEDIC AFTERCARE 06/08/2017 JOSEE ESCOTO FACC, ALI FACP CCDS Ot E78.4 OTHER HYPERLIPIDEMIA 06/08/2017 JOSEE ESCOTO FACC, ALI FACP CCDS Ot I10 ESSENTIAL (PRIMARY) HYPERTENSION 06/08/2017 JOSEE ESCOTO FACC, ALI FACP CCDS Ot J43.8 OTHER EMPHYSEMA 06/08/2017 JOSEE ESCOTO FACC, ALI FACP CCDS Ot R06.02 SHORTNESS OF BREATH 06/08/2017 JOSEE ESCOTO FACC, ALI FACP CCDS Ot Z72.0 TOBACCO USE 06/13/2017 SOSA RESENDIZ MD Ot 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512 PAIN IN LEFT SHOULDER 07/09/2017 JEN SANTIAGO MD Ot Z47.89 ENCOUNTER FOR OTHER ORTHOPEDIC AFTERCARE 07/10/2017 JEN SANTIAGO MD Ot M25.512 PAIN IN LEFT SHOULDER 07/10/2017 JEN SANTIAGO MD Ot Z47.89 ENCOUNTER FOR OTHER ORTHOPEDIC AFTERCARE 07/11/2017 JEN SANTIAGO MD Ot M25.512 PAIN IN LEFT SHOULDER 07/11/2017 JEN SANTIAGO MD Ot Z47.89 ENCOUNTER FOR OTHER ORTHOPEDIC AFTERCARE 07/11/2017 JEN SANTIAGO MD Ot M25.512 PAIN IN LEFT SHOULDER 07/11/2017 JEN SANTIAGO MD Ot Z47.89 ENCOUNTER FOR OTHER ORTHOPEDIC AFTERCARE Procedures Code Description Performed By Performed On 38.93 VENOUS CATHETERIZATION NEC 08/13/2011 81.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 10/23/2011 34812 XRAY KNEE RIGHT 1 OR 2 VIEWS 02/12/2013 Q0091 PAP SMEAR OBTAIN SMEAR 06/02/2013 07929 HEMOCCULT 06/02/2013 70002 PAP SMEAR 06/05/2013 18853 CULTURE WOUND (AEROBIC) 07/06/2013 89338 URINE DRUG SCREEN (IN-HOUSE ) 09/11/2013 72181 URINE METH/AMPHETAMINE GC/ MS 09/18/2013 04467 ROUTINE VENIPUNCTURE 11/17/2013 06505 CBC 11/17/2013 OrthopedSosa Slaughter 11/20/2013 85596 HEMOCCULT 11/20/2013 75672 HEMOCCULT 11/20/2013 86156 XRAY KNEE LEFT, 1 OR 2 VIEWS 11/20/2013 53885 MAMMOGRAM, SCREENING 11/21/2013 95919 AMERITOX 11/21/2013 General S WillardGucci vegsaa 11/21/2013 70599 ROUTINE VENIPUNCTURE 12/02/2013 91972 CBC 12/02/2013 4207641 GFR CALC (RESULT ONLY) 12/02/2013 38509 CMP 12/02/2013 74386 LIPID PANEL 12/02/2013 15590 XRAY FOOT LEFT COMP MIN 3 VIEWS 01/05/2014 Cardiolog Roger Tripp 01/05/2014 35506 XRAY FOOT RIGHT COMP MIN 3 VIEWS 01/05/2014 56060 UA W/ CULTURE IF INDICATED 01/05/2014 54076 CULTURE URINE 01/06/2014 57322 ROUTINE VENIPUNCTURE 03/19/2014 G0008 FLU ADMINISTRATION ( MEDICARE ONLY) 03/19/2014 03183 PULMONARY EDUCATION 03/19/2014 G0437 TOBACCO-USE CONSTRUCTION TECHNICIAN>10MIN 03/19/2014 [id number] GFR CALC (RESULT ONLY) 03/19/2014 15486 BMP 03/19/2014 72558 MAGNESIUM 03/19/2014 Physical Physical Therapy, [facility] 03/30/2014 96629 DEBRIDE NAIL >6 04/17/2014 48545 OXIMETRY 06/03/2014 43078 AMERITOX 07/08/2014 [id number] INSERTION OF INFUSION DEV INTO SUP VENA 07/12/2016 Results Test Result Range Bacterial blood culture - 04/12/16 10:00 Bacterial blood culture NG NR PT panel in platelet poor plasma by coagulation assay - 04/12/16 10:10 Prothrombin time (PT) in platelet poor plasma by coagulation assay 13.3 s 12.2-14.7 INR in platelet poor plasma or blood by coagulation assay 1.0 0.8-1.4 Activated partial thromboplastin time (aPTT) in platelet poor plasma bycoagulation assay - 04/12/16 10:10 Activated partial thromboplastin time (aPTT) in platelet poor plasma bycoagulation assay 26 s 24-35 Blood lactic acid measurement (moles/volume) - 04/12/16 10:10 Blood lactic acid measurement (moles/volume) 1.8 mmol/L 0.5-2.0 Comprehensive metabolic panel - 04/12/16 10:10 Serum or plasma sodium measurement (moles/volume) 135 mmol/L 135-145 Serum or plasma potassium measurement (moles/volume) 3.1 mmol/L 3.6-5.0 Serum or plasma chloride measurement (moles/volume) 97 mmol/L 98-107 Carbon dioxide 28 mmol/L 21-32 Serum or plasma anion gap determination (moles/volume) 10 mmol/L 5-14 Serum or plasma urea nitrogen measurement (mass/volume) 33 mg/dL 7-18 Serum or plasma creatinine measurement (mass/volume) 1.77 mg/dL 0.60-1.30 Serum or plasma urea nitrogen/creatinine mass ratio 19 NRG Serum or plasma creatinine measurement with calculation of estimated glomerular filtration rate 30 NRG Serum or plasma glucose measurement (mass/volume) 99 mg/dL 70-105 Serum or plasma calcium measurement (mass/volume) 8.3 mg/dL 8.5-10.1 Serum or plasma total bilirubin measurement (mass/volume) 0.4 mg/dL 0.1-1.0 Serum or plasma alkaline phosphatase measurement (enzymatic activity/volume) 73 U/L 40-136 Serum or plasma aspartate aminotransferase measurement (enzymatic activity/ volume) 20 U/L 5-34 Serum or plasma alanine aminotransferase measurement (enzymatic activity/volume ) 18 U/L 0-55 Serum or plasma protein measurement (mass/volume) 6.5 g/dL 6.4-8.2 Serum or plasma albumin measurement (mass/volume) 3.6 g/dL 3.2-4.5 Serum or plasma troponin i.cardiac measurement (mass/volume) - 04/12/16 10:10 Serum or plasma troponin i.cardiac measurement (mass/volume) < ng/ mL <0.30 Serum or plasma C reactive protein measurement (mass/volume) - 04/12/16 10:10 Serum or plasma C reactive protein measurement (mass/volume) 4.67 mg /dL 0.00-0.50 Bacterial blood culture - 04/12/16 10:10 Bacterial blood culture NG NRG Activated partial thromboplastin time (aPTT) in platelet poor plasma bycoagulation assay - 04/12/16 16:00 Activated partial thromboplastin time (aPTT) in platelet poor plasma bycoagulation assay 56 s 24-35 Whole blood basic metabolic panel - 04/12/16 17:21 Serum or plasma sodium measurement (moles/volume) 139 mmol/L 135-145 Serum or plasma potassium measurement (moles/volume) 3.2 mmol/L 3.6-5.0 Serum or plasma chloride measurement (moles/volume) 104 mmol/L 98-107 Carbon dioxide 26 mmol/L 21-32 Serum or plasma anion gap determination (moles/volume) 9 mmol/L 5-14 Serum or plasma urea nitrogen measurement (mass/volume) 29 mg/dL 7-18 Serum or plasma creatinine measurement (mass/volume) 1.26 mg/dL 0.60-1.30 Serum or plasma urea nitrogen/creatinine mass ratio 23 NRG Serum or plasma creatinine measurement with calculation of estimated glomerular filtration rate 44 NRG Serum or plasma glucose measurement (mass/volume) 114 mg/dL 70-105 Serum or plasma calcium measurement (mass/volume) 7.7 mg/dL 8.5-10.1 Activated partial thromboplastin time (aPTT) in platelet poor plasma bycoagulation assay - 04/12/16 23:11 Activated partial thromboplastin time (aPTT) in platelet poor plasma bycoagulation assay 29 s 24-35 Complete blood count (CBC) with automated white blood cell (WBC) differential - 04/13/16 05:03 Blood leukocytes automated count (number/volume) 4.7 10*3/uL 4.3-11.0 Blood erythrocytes automated count (number/volume) 3.86 10*6/uL 4.35-5.85 Venous blood hemoglobin measurement (mass/volume) 11.4 g/dL 11.5-16.0 Blood hematocrit (volume fraction) 34 % 35-52 Automated erythrocyte mean corpuscular volume 89 [foz_us] 80-99 Automated erythrocyte mean corpuscular hemoglobin (mass per erythrocyte) 30 pg 25-34 Automated erythrocyte mean corpuscular hemoglobin concentration measurement ( mass/volume) 33 g/dL 32-36 Automated erythrocyte distribution width ratio 13.7 % 10.0-14.5 Automated blood platelet count (count/volume) 122 10*3/uL 130-400 Automated blood platelet mean volume measurement 11.6 [foz_us] 7.4-10.4 Automated blood neutrophils/100 leukocytes 47 % 42-75 Automated blood lymphocytes/100 leukocytes 35 % 12-44 Blood monocytes/100 leukocytes 12 % 0-12 Automated blood eosinophils/100 leukocytes 6 % 0-10 Automated blood basophils/100 leukocytes 0 % 0-10 Blood neutrophils automated count (number/volume) 2.2 10*3 1.8-7.8 Blood lymphocytes automated count (number/volume) 1.7 10*3 1.0-4.0 Blood monocytes automated count (number/volume) 0.6 10*3 0.0-1.0 Automated eosinophil count 0.3 10*3/uL 0.0-0.3 Automated blood basophil count (count/volume) 0.0 10*3/uL 0.0-0.1 Comprehensive metabolic panel - 04/13/16 05:10 Serum or plasma sodium measurement (moles/volume) 140 mmol/L 135-145 Serum or plasma potassium measurement (moles/volume) 3.3 mmol/L 3.6-5.0 Serum or plasma chloride measurement (moles/volume) 106 mmol/L 98-107 Carbon dioxide 24 mmol/L 21-32 Serum or plasma anion gap determination (moles/volume) 10 mmol/L 5-14 Serum or plasma urea nitrogen measurement (mass/volume) 21 mg/dL 7-18 Serum or plasma creatinine measurement (mass/volume) 0.84 mg/dL 0.60-1.30 Serum or plasma urea nitrogen/creatinine mass ratio 25 NRG Serum or plasma creatinine measurement with calculation of estimated glomerular filtration rate > NRG Serum or plasma glucose measurement (mass/volume) 98 mg/dL 70-105 Serum or plasma calcium measurement (mass/volume) 7.9 mg/dL 8.5-10.1 Serum or plasma total bilirubin measurement (mass/volume) 0.3 mg/dL 0.1-1.0 Serum or plasma alkaline phosphatase measurement (enzymatic activity/volume) 60 U/L 40-136 Serum or plasma aspartate aminotransferase measurement (enzymatic activity/ volume) 13 U/L 5-34 Serum or plasma alanine aminotransferase measurement (enzymatic activity/volume ) 16 U/L 0-55 Serum or plasma protein measurement (mass/volume) 5.4 g/dL 6.4-8.2 Serum or plasma albumin measurement (mass/volume) 3.0 g/dL 3.2-4.5 Complete blood count (CBC) with automated white blood cell (WBC) differential - 07/12/16 15:20 Blood leukocytes automated count (number/volume) 9.8 10*3/uL 4.3-11.0 Blood erythrocytes automated count (number/volume) 4.53 10*6/uL 4.35-5.85 Venous blood hemoglobin measurement (mass/volume) 13.4 g/dL 11.5-16.0 Blood hematocrit (volume fraction) 39 % 35-52 Automated erythrocyte mean corpuscular volume 86 [foz_us] 80-99 Automated erythrocyte mean corpuscular hemoglobin (mass per erythrocyte) 30 pg 25-34 Automated erythrocyte mean corpuscular hemoglobin concentration measurement ( mass/volume) 34 g/dL 32-36 Automated erythrocyte distribution width ratio 15.6 % 10.0-14.5 Automated blood platelet count (count/volume) 221 10*3/uL 130-400 Automated blood platelet mean volume measurement 11.6 [foz_us] 7.4-10.4 Automated blood neutrophils/100 leukocytes 65 % 42-75 Automated blood lymphocytes/100 leukocytes 21 % 12-44 Blood monocytes/100 leukocytes 13 % 0-12 Automated blood eosinophils/100 leukocytes 1 % 0-10 Automated blood basophils/100 leukocytes 0 % 0-10 Blood neutrophils automated count (number/volume) 6.4 10*3 1.8-7.8 Blood lymphocytes automated count (number/volume) 2.0 10*3 1.0-4.0 Blood monocytes automated count (number/volume) 1.3 10*3 0.0-1.0 Automated eosinophil count 0.1 10*3/uL 0.0-0.3 Automated blood basophil count (count/volume) 0.0 10*3/uL 0.0-0.1 Comprehensive metabolic panel - 07/12/16 15:20 Serum or plasma sodium measurement (moles/volume) 137 mmol/L 135-145 Serum or plasma potassium measurement (moles/volume) 2.0 mmol/L 3.6-5.0 Serum or plasma chloride measurement (moles/volume) 93 mmol/L 98-107 Carbon dioxide 31 mmol/L 21-32 Serum or plasma anion gap determination (moles/volume) 13 mmol/L 5-14 Serum or plasma urea nitrogen measurement (mass/volume) 12 mg/dL 7-18 Serum or plasma creatinine measurement (mass/volume) 0.98 mg/dL 0.60-1.30 Serum or plasma urea nitrogen/creatinine mass ratio 12 NRG Serum or plasma creatinine measurement with calculation of estimated glomerular filtration rate 59 NRG Serum or plasma glucose measurement (mass/volume) 117 mg/dL 70-105 Serum or plasma calcium measurement (mass/volume) 9.2 mg/dL 8.5-10.1 Serum or plasma total bilirubin measurement (mass/volume) 0.6 mg/dL 0.1-1.0 Serum or plasma alkaline phosphatase measurement (enzymatic activity/volume) 66 U/L 40-136 Serum or plasma aspartate aminotransferase measurement (enzymatic activity/ volume) 30 U/L 5-34 Serum or plasma alanine aminotransferase measurement (enzymatic activity/volume ) 26 U/L 0-55 Serum or plasma protein measurement (mass/volume) 6.9 g/dL 6.4-8.2 Serum or plasma albumin measurement (mass/volume) 3.7 g/dL 3.2-4.5 Magnesium - 07/12/16 15:20 Magnesium 1.7 mg/dL 1.8-2.4 THYROID STIMULATING HORMONE - 07/12/16 15:20 THYROID STIMULATING HORMONE 1.46 u[iU]/mL 0.35-4.94 Serum or plasma salicylates measurement (mass/volume) - 07/12/16 15:20 Serum or plasma salicylates measurement (mass/volume) < mg/dL 5.0-20.0 Serum or plasma acetaminophen measurement (mass/volume) - 07/12/16 15:20 Serum or plasma acetaminophen measurement (mass/volume) < ug/mL 10-30 Valproic acid - 07/12/16 15:20 Valproic acid < ug/mL 50.0-100.0 Serum or plasma ethanol measurement (mass/volume) - 07/12/16 15:20 Serum or plasma ethanol measurement (mass/volume) < mg/dL <10 Urine drug screening test - 07/12/16 15:43 Urine phencyclidine detection by screening method NEGATIVE NEGATIVE Urine benzodiazepines detection by screening method POSITIVE NEGATIVE Urine cocaine detection NEGATIVE NEGATIVE Urine amphetamines detection by screening method POSITIVE NEGATIVE Urine methamphetamine detection by screening method POSITIVE NEGATIVE Urine cannabinoids detection by screening method NEGATIVE NEGATIVE Urine opiates detection by screening method POSITIVE NEGATIVE Urine barbiturates detection NEGATIVE NEGATIVE Screening urine tricyclic antidepressants detection NEGATIVE NEGATIVE Urine methadone detection by screening method NEGATIVE NEGATIVE Urine oxycodone detection NEGATIVE NEGATIVE Urine propoxyphene detection NEGATIVE NEGATIVE Blood lactic acid measurement (moles/volume) - 07/12/16 15:50 Blood lactic acid measurement (moles/volume) 1.9 mmol/L 0.5-2.0 Bacterial blood culture - 07/12/16 15:50 Bacterial blood culture NG NRG Bacterial blood culture - 07/12/16 16:37 Bacterial blood culture NG NRG Methicillin resistant Staphylococcus aureus (MRSA) screening culture - 21:50 Methicillin resistant Staphylococcus aureus (MRSA) screening culture NEG NRG Complete blood count (CBC) with automated white blood cell (WBC) differential - 07/13/16 04:11 Blood leukocytes automated count (number/volume) 6.4 10*3/uL 4.3-11.0 Blood erythrocytes automated count (number/volume) 4.02 10*6/uL 4.35-5.85 Venous blood hemoglobin measurement (mass/volume) 11.9 g/dL 11.5-16.0 Blood hematocrit (volume fraction) 36 % 35-52 Automated erythrocyte mean corpuscular volume 89 [foz_us] 80-99 Automated erythrocyte mean corpuscular hemoglobin (mass per erythrocyte) 30 pg 25-34 Automated erythrocyte mean corpuscular hemoglobin concentration measurement ( mass/volume) 33 g/dL 32-36 Automated erythrocyte distribution width ratio 16.0 % 10.0-14.5 Automated blood platelet count (count/volume) 186 10*3/uL 130-400 Automated blood platelet mean volume measurement 11.3 [foz_us] 7.4-10.4 Automated blood neutrophils/100 leukocytes 62 % 42-75 Automated blood lymphocytes/100 leukocytes 22 % 12-44 Blood monocytes/100 leukocytes 13 % 0-12 Automated blood eosinophils/100 leukocytes 3 % 0-10 Automated blood basophils/100 leukocytes 0 % 0-10 Blood neutrophils automated count (number/volume) 4.0 10*3 1.8-7.8 Blood lymphocytes automated count (number/volume) 1.4 10*3 1.0-4.0 Blood monocytes automated count (number/volume) 0.9 10*3 0.0-1.0 Automated eosinophil count 0.2 10*3/uL 0.0-0.3 Automated blood basophil count (count/volume) 0.0 10*3/uL 0.0-0.1 Comprehensive metabolic panel - 07/13/16 04:11 Serum or plasma sodium measurement (moles/volume) 141 mmol/L 135-145 Serum or plasma potassium measurement (moles/volume) 2.4 mmol/L 3.6-5.0 Serum or plasma chloride measurement (moles/volume) 101 mmol/L 98-107 Carbon dioxide 29 mmol/L 21-32 Serum or plasma anion gap determination (moles/volume) 11 mmol/L 5-14 Serum or plasma urea nitrogen measurement (mass/volume) 7 mg/dL 7-18 Serum or plasma creatinine measurement (mass/volume) 0.72 mg/dL 0.60-1.30 Serum or plasma urea nitrogen/creatinine mass ratio 10 NRG Serum or plasma creatinine measurement with calculation of estimated glomerular filtration rate > NRG Serum or plasma glucose measurement (mass/volume) 115 mg/dL 70-105 Serum or plasma calcium measurement (mass/volume) 7.8 mg/dL 8.5-10.1 Serum or plasma total bilirubin measurement (mass/volume) 0.6 mg/dL 0.1-1.0 Serum or plasma alkaline phosphatase measurement (enzymatic activity/volume) 52 U/L 40-136 Serum or plasma aspartate aminotransferase measurement (enzymatic activity/ volume) 26 U/L 5-34 Serum or plasma alanine aminotransferase measurement (enzymatic activity/volume ) 20 U/L 0-55 Serum or plasma protein measurement (mass/volume) 5.7 g/dL 6.4-8.2 Serum or plasma albumin measurement (mass/volume) 2.9 g/dL 3.2-4.5 Magnesium - 07/13/16 04:11 Magnesium 2.1 mg/dL 1.8-2.4 Whole blood basic metabolic panel - 07/13/16 13:30 Serum or plasma sodium measurement (moles/volume) 139 mmol/L 135-145 Serum or plasma potassium measurement (moles/volume) 2.7 mmol/L 3.6-5.0 Serum or plasma chloride measurement (moles/volume) 102 mmol/L 98-107 Carbon dioxide 30 mmol/L 21-32 Serum or plasma anion gap determination (moles/volume) 7 mmol/L 5-14 Serum or plasma urea nitrogen measurement (mass/volume) 8 mg/dL 7-18 Serum or plasma creatinine measurement (mass/volume) 0.68 mg/dL 0.60-1.30 Serum or plasma urea nitrogen/creatinine mass ratio 12 NRG Serum or plasma creatinine measurement with calculation of estimated glomerular filtration rate > NRG Serum or plasma glucose measurement (mass/volume) 103 mg/dL 70-105 Serum or plasma calcium measurement (mass/volume) 7.8 mg/dL 8.5-10.1 Vancomycin trough - 07/13/16 17:58 Vancomycin trough 15.0 ug/mL 10.0-20.0 Gram stain microscopy - 07/13/16 17:58 GRAM STAIN RESULT FEW WBC'S, NO BACTERIA OBSERVED NRG Bacteria identification in wound by culture - 07/13/16 17:58 Bacteria identification in wound by culture [id number] NRG QUANTITY OF GROWTH Scant Growth NRG Whole blood basic metabolic panel - 07/13/16 22:35 Serum or plasma sodium measurement (moles/volume) 142 mmol/L 135-145 Serum or plasma potassium measurement (moles/volume) 3.4 mmol/L 3.6-5.0 Serum or plasma chloride measurement (moles/volume) 107 mmol/L 98-107 Carbon dioxide 28 mmol/L 21-32 Serum or plasma anion gap determination (moles/volume) 7 mmol/L 5-14 Serum or plasma urea nitrogen measurement (mass/volume) 7 mg/dL 7-18 Serum or plasma creatinine measurement (mass/volume) 0.67 mg/dL 0.60-1.30 Serum or plasma urea nitrogen/creatinine mass ratio 10 NRG Serum or plasma creatinine measurement with calculation of estimated glomerular filtration rate > NRG Serum or plasma glucose measurement (mass/volume) 104 mg/dL 70-105 Serum or plasma calcium measurement (mass/volume) 7.6 mg/dL 8.5-10.1 Complete blood count (CBC) with automated white blood cell (WBC) differential - 07/14/16 04:35 Blood leukocytes automated count (number/volume) 6.4 10*3/uL 4.3-11.0 Blood erythrocytes automated count (number/volume) 3.70 10*6/uL 4.35-5.85 Venous blood hemoglobin measurement (mass/volume) 11.0 g/dL 11.5-16.0 Blood hematocrit (volume fraction) 34 % 35-52 Automated erythrocyte mean corpuscular volume 91 [foz_us] 80-99 Automated erythrocyte mean corpuscular hemoglobin (mass per erythrocyte) 30 pg 25-34 Automated erythrocyte mean corpuscular hemoglobin concentration measurement ( mass/volume) 33 g/dL 32-36 Automated erythrocyte distribution width ratio 16.8 % 10.0-14.5 Automated blood platelet count (count/volume) 185 10*3/uL 130-400 Automated blood platelet mean volume measurement 11.1 [foz_us] 7.4-10.4 Automated blood neutrophils/100 leukocytes 60 % 42-75 Automated blood lymphocytes/100 leukocytes 28 % 12-44 Blood monocytes/100 leukocytes 10 % 0-12 Automated blood eosinophils/100 leukocytes 3 % 0-10 Automated blood basophils/100 leukocytes 0 % 0-10 Blood neutrophils automated count (number/volume) 3.8 10*3 1.8-7.8 Blood lymphocytes automated count (number/volume) 1.8 10*3 1.0-4.0 Blood monocytes automated count (number/volume) 0.6 10*3 0.0-1.0 Automated eosinophil count 0.2 10*3/uL 0.0-0.3 Automated blood basophil count (count/volume) 0.0 10*3/uL 0.0-0.1 Whole blood basic metabolic panel - 07/14/16 04:35 Serum or plasma sodium measurement (moles/volume) 144 mmol/L 135-145 Serum or plasma potassium measurement (moles/volume) 3.3 mmol/L 3.6-5.0 Serum or plasma chloride measurement (moles/volume) 110 mmol/L 98-107 Carbon dioxide 26 mmol/L 21-32 Serum or plasma anion gap determination (moles/volume) 8 mmol/L 5-14 Serum or plasma urea nitrogen measurement (mass/volume) 6 mg/dL 7-18 Serum or plasma creatinine measurement (mass/volume) 0.67 mg/dL 0.60-1.30 Serum or plasma urea nitrogen/creatinine mass ratio 9 NRG Serum or plasma creatinine measurement with calculation of estimated glomerular filtration rate > NRG Serum or plasma glucose measurement (mass/volume) 104 mg/dL 70-105 Serum or plasma calcium measurement (mass/volume) 7.5 mg/dL 8.5-10.1 Serum or plasma phosphate measurement (mass/volume) - 07/14/16 04:35 Serum or plasma phosphate measurement (mass/volume) 2.3 mg/dL 2.3-4.7 Magnesium - 07/14/16 04:35 Magnesium 1.8 mg/dL 1.8-2.4 Hemoglobin A1c - 07/14/16 04:35 Hemoglobin A1c 6.2 % 4.5-6.2 Serum or plasma potassium measurement (moles/volume) - 07/14/16 14:37 Serum or plasma potassium measurement (moles/volume) 3.9 mmol/L 3.6-5.0 Blood CBC with ordered manual differential panel - 07/15/16 05:45 Blood leukocytes automated count (number/volume) 6.1 10*3/uL 4.3-11.0 Blood erythrocytes automated count (number/volume) 3.65 10*6/uL 4.35-5.85 Venous blood hemoglobin measurement (mass/volume) 10.7 g/dL 11.5-16.0 Blood hematocrit (volume fraction) 33 % 35-52 Automated erythrocyte mean corpuscular volume 92 [foz_us] 80-99 Automated erythrocyte mean corpuscular hemoglobin (mass per erythrocyte) 29 pg 25-34 Automated erythrocyte mean corpuscular hemoglobin concentration measurement ( mass/volume) 32 g/dL 32-36 Automated erythrocyte distribution width ratio 16.4 % 10.0-14.5 Automated blood platelet count (count/volume) 187 10*3/uL 130-400 Automated blood platelet mean volume measurement 11.2 [foz_us] 7.4-10.4 Automated blood neutrophils/100 leukocytes 57 % 42-75 Automated blood lymphocytes/100 leukocytes 29 % 12-44 Blood monocytes/100 leukocytes 7 % NRG Automated blood eosinophils/100 leukocytes 5 % 0-10 Automated blood basophils/100 leukocytes 0 % 0-10 Blood neutrophils automated count (number/volume) 3.5 10*3 1.8-7.8 Blood lymphocytes automated count (number/volume) 1.8 10*3 1.0-4.0 Blood monocytes automated count (number/volume) 0.5 10*3 0.0-1.0 Automated eosinophil count 0.3 10*3/uL 0.0-0.3 Automated blood basophil count (count/volume) 0.0 10*3/uL 0.0-0.1 Manual blood segmented neutrophils/100 leukocytes 46 % NRG Blood band neutrophils/100 leukocytes 0 % NRG Manual blood lymphocytes/100 leukocytes 31 % NRG Manual eosinophils/100 leukocytes in nose 9 % NRG Manual blood basophils/100 leukocytes 0 % NRG Blood lymphocytes variant/100 leukocytes 7 % NRG Blood polychromasia detection by light microscopy SLIGHT NRG Blood anisocytosis detection by light microscopy SLIGHT NRG Blood macrocytes detection by light microscopy SLIGHT NRG Blood microcytes detection by light microscopy SLIGHT NRG Blood spherocytes detection by light microscopy SLIGHT NRG Comprehensive metabolic panel - 07/15/16 05:45 Serum or plasma sodium measurement (moles/volume) 142 mmol/L 135-145 Serum or plasma potassium measurement (moles/volume) 3.8 mmol/L 3.6-5.0 Serum or plasma chloride measurement (moles/volume) 110 mmol/L 98-107 Carbon dioxide 25 mmol/L 21-32 Serum or plasma anion gap determination (moles/volume) 7 mmol/L 5-14 Serum or plasma urea nitrogen measurement (mass/volume) 9 mg/dL 7-18 Serum or plasma creatinine measurement (mass/volume) 0.65 mg/dL 0.60-1.30 Serum or plasma urea nitrogen/creatinine mass ratio 14 NRG Serum or plasma creatinine measurement with calculation of estimated glomerular filtration rate > NRG Serum or plasma glucose measurement (mass/volume) 93 mg/dL 70-105 Serum or plasma calcium measurement (mass/volume) 7.5 mg/dL 8.5-10.1 Serum or plasma total bilirubin measurement (mass/volume) 0.3 mg/dL 0.1-1.0 Serum or plasma alkaline phosphatase measurement (enzymatic activity/volume) 51 U/L 40-136 Serum or plasma aspartate aminotransferase measurement (enzymatic activity/ volume) 13 U/L 5-34 Serum or plasma alanine aminotransferase measurement (enzymatic activity/volume ) 13 U/L 0-55 Serum or plasma protein measurement (mass/volume) 5.3 g/dL 6.4-8.2 Serum or plasma albumin measurement (mass/volume) 2.5 g/dL 3.2-4.5 Magnesium - 07/15/16 05:45 Magnesium 1.5 mg/dL 1.8-2.4 Bacteria identification in isolate by anaerobe culture - 08/08/16 09:37 Bacteria identification in isolate by anaerobe culture NOANA NRG Gram stain microscopy - 08/08/16 09:37 GRAM STAIN RESULT NO BACTERIA NRG Bacteria identification in wound by culture - 08/08/16 09:37 Bacteria identification in wound by culture [id number] NR FREE TEXT EXTERNAL (NOT JK) NRG QUANTITY OF GROWTH Scant Growth NRG Whole blood basic metabolic panel - 10/25/16 10:02 Serum or plasma sodium measurement (moles/volume) 137 mmol/L 135-145 Serum or plasma potassium measurement (moles/volume) 4.0 mmol/L 3.6-5.0 Serum or plasma chloride measurement (moles/volume) 107 mmol/L 98-107 Carbon dioxide 21 mmol/L 21-32 Serum or plasma anion gap determination (moles/volume) 9 mmol/L 5-14 Serum or plasma urea nitrogen measurement (mass/volume) 14 mg/dL 7-18 Serum or plasma creatinine measurement (mass/volume) 0.74 mg/dL 0.60-1.30 Serum or plasma urea nitrogen/creatinine mass ratio 19 NRG Serum or plasma creatinine measurement with calculation of estimated glomerular filtration rate > NRG Serum or plasma glucose measurement (mass/volume) 113 mg/dL 70-105 Serum or plasma calcium measurement (mass/volume) 9.0 mg/dL 8.5-10.1 Automated blood complete blood count (hemogram) panel - 05/01/17 08:42 Blood leukocytes automated count (number/volume) 4.4 10*3/uL 4.3-11.0 Blood erythrocytes automated count (number/volume) 4.70 10*6/uL 4.35-5.85 Venous blood hemoglobin measurement (mass/volume) 14.2 g/dL 11.5-16.0 Blood hematocrit (volume fraction) 42 % 35-52 Automated erythrocyte mean corpuscular volume 88 [foz_us] 80-99 Automated erythrocyte mean corpuscular hemoglobin (mass per erythrocyte) 30 pg 25-34 Automated erythrocyte mean corpuscular hemoglobin concentration measurement ( mass/volume) 34 g/dL 32-36 Automated erythrocyte distribution width ratio 13.3 % 10.0-14.5 Automated blood platelet count (count/volume) 138 10*3/uL 130-400 Automated blood platelet mean volume measurement 11.5 [foz_us] 7.4-10.4 Comprehensive metabolic panel - 05/01/17 08:42 Serum or plasma sodium measurement (moles/volume) 141 mmol/L 135-145 Serum or plasma potassium measurement (moles/volume) 4.1 mmol/L 3.6-5.0 Serum or plasma chloride measurement (moles/volume) 110 mmol/L 98-107 Carbon dioxide 20 mmol/L 21-32 Serum or plasma anion gap determination (moles/volume) 11 mmol/L 5-14 Serum or plasma urea nitrogen measurement (mass/volume) 27 mg/dL 7-18 Serum or plasma creatinine measurement (mass/volume) 0.75 mg/dL 0.60-1.30 Serum or plasma urea nitrogen/creatinine mass ratio 36 NRG Serum or plasma creatinine measurement with calculation of estimated glomerular filtration rate > NR Serum or plasma glucose measurement (mass/volume) 94 mg/dL 70-105 Serum or plasma calcium measurement (mass/volume) 8.9 mg/dL 8.5-10.1 Serum or plasma total bilirubin measurement (mass/volume) 0.3 mg/dL 0.1-1.0 Serum or plasma alkaline phosphatase measurement (enzymatic activity/volume) 55 U/L 40-136 Serum or plasma aspartate aminotransferase measurement (enzymatic activity/ volume) 17 U/L 5-34 Serum or plasma alanine aminotransferase measurement (enzymatic activity/volume ) 15 U/L 0-55 Serum or plasma protein measurement (mass/volume) 6.7 g/dL 6.4-8.2 Serum or plasma albumin measurement (mass/volume) 3.6 g/dL 3.2-4.5 Influenza virus A and B antigen detection - 07/19/17 17:05 FLU RESULT NEGATIVE FOR INFLUENZA A AND B ANTIGENS BY [facility] Complete blood count (CBC) with automated white blood cell (WBC) differential - 07/19/17 19:00 Blood leukocytes automated count (number/volume) 7.2 10*3/uL 4.3-11.0 Blood erythrocytes automated count (number/volume) 4.46 10*6/uL 4.35-5.85 Venous blood hemoglobin measurement (mass/volume) 13.5 g/dL 11.5-16.0 Blood hematocrit (volume fraction) 40 % 35-52 Automated erythrocyte mean corpuscular volume 89 [foz_us] 80-99 Automated erythrocyte mean corpuscular hemoglobin (mass per erythrocyte) 30 pg 25-34 Automated erythrocyte mean corpuscular hemoglobin concentration measurement ( mass/volume) 34 g/dL 32-36 Automated erythrocyte distribution width ratio 13.5 % 10.0-14.5 Automated blood platelet count (count/volume) 150 10*3/uL 130-400 Automated blood platelet mean volume measurement 11.0 [foz_us] 7.4-10.4 Automated blood neutrophils/100 leukocytes 48 % 42-75 Automated blood lymphocytes/100 leukocytes 34 % 12-44 Blood monocytes/100 leukocytes 11 % 0-12 Automated blood eosinophils/100 leukocytes 8 % 0-10 Automated blood basophils/100 leukocytes 0 % 0-10 Blood neutrophils automated count (number/volume) 3.5 10*3 1.8-7.8 Blood lymphocytes automated count (number/volume) 2.4 10*3 1.0-4.0 Blood monocytes automated count (number/volume) 0.8 10*3 0.0-1.0 Automated eosinophil count 0.5 10*3/uL 0.0-0.3 Automated blood basophil count (count/volume) 0.0 10*3/uL 0.0-0.1 Comprehensive metabolic panel - 07/19/17 19:00 Serum or plasma sodium measurement (moles/volume) 142 mmol/L 135-145 Serum or plasma potassium measurement (moles/volume) 4.3 mmol/L 3.6-5.0 Serum or plasma chloride measurement (moles/volume) 107 mmol/L 98-107 Carbon dioxide 25 mmol/L 21-32 Serum or plasma anion gap determination (moles/volume) 10 mmol/L 5-14 Serum or plasma urea nitrogen measurement (mass/volume) 20 mg/dL 7-18 Serum or plasma creatinine measurement (mass/volume) 0.81 mg/dL 0.60-1.30 Serum or plasma urea nitrogen/creatinine mass ratio 25 NRG Serum or plasma creatinine measurement with calculation of estimated glomerular filtration rate > NRG Serum or plasma glucose measurement (mass/volume) 96 mg/dL 70-105 Serum or plasma calcium measurement (mass/volume) 8.9 mg/dL 8.5-10.1 Serum or plasma total bilirubin measurement (mass/volume) 0.3 mg/dL 0.1-1.0 Serum or plasma alkaline phosphatase measurement (enzymatic activity/volume) 70 U/L 40-136 Serum or plasma aspartate aminotransferase measurement (enzymatic activity/ volume) 18 U/L 5-34 Serum or plasma alanine aminotransferase measurement (enzymatic activity/volume ) 16 U/L 0-55 Serum or plasma protein measurement (mass/volume) 6.9 g/dL 6.4-8.2 Serum or plasma albumin measurement (mass/volume) 3.8 g/dL 3.2-4.5 Lipase - 07/19/17 19:00 Lipase 21 U/L 8-78 Encounters ACCT No. Visit Date/Time Discharge Status Pt. Type Provider Facility Loc./Unit Complaint [id number] 07/06/2014 11:51:00 07/06/2014 23:59:59 CLS Outpatient RASHEED RAHMAN APRN [id number] 06/03/2014 10:36:00 06/03/2014 23:59:59 CLS Outpatient RASHEED RAHMAN APRN [id number] 06/03/2014 10:36:00 06/03/2014 23:59:59 CLS Outpatient RASHEED RAHMAN APRN [id number] 04/17/2014 10:45:00 04/17/2014 23:59:59 CLS Outpatient JACK YUAN DO [id number] 03/19/2014 11:26:00 03/19/2014 23:59:59 CLS Outpatient RASHEED RAHMAN APRN [id number] 01/22/2014 13:09:00 01/22/2014 23:59:59 CLS Outpatient ARIAS GRAJEDA MD [id number] 01/05/2014 09:23:00 01/05/2014 23:59:59 CLS Outpatient RASHEED RAHMAN APRN [id number] 01/05/2014 09:23:00 01/05/2014 23:59:59 CLS Outpatient JOSIAH QUALITY IMPROVEMENT COORDINATORNAKIARASHEED S [id number] 12/02/2013 11:14:00 12/02/2013 23:59:59 CLS Outpatient JOSIAH QUALITY IMPROVEMENT COORDINATORNAKIARASHEED S [id number] 11/20/2013 13:23:00 11/20/2013 23:59:59 CLS Outpatient JOSIAH QUALITY IMPROVEMENT COORDINATORNAKIARASHEED S [id number] 11/20/2013 13:23:00 11/20/2013 23:59:59 CLS Outpatient JOSIAH QUALITY IMPROVEMENT COORDINATOR, RASHEED S [id number] 11/20/2013 12:59:00 11/20/2013 23:59:59 CLS Outpatient YUAN JACK [id number] 11/17/2013 10:47:00 11/17/2013 23:59:59 CLS Outpatient LILLYL QUALITY IMPROVEMENT COORDINATORNANCY [id number] 09/11/2013 08:36:00 09/11/2013 23:59:59 CLS Outpatient JOSIAH QUALITY IMPROVEMENT COORDINATORNAKIARASHEED S [id number] 09/11/2013 08:36:00 09/11/2013 23:59:59 CLS Outpatient JOSIAH QUALITY IMPROVEMENT COORDINATORNAKIARASHEED S [id number] 09/04/2013 15:45:00 09/04/2013 23:59:59 CLS Outpatient KWABENA HDEZ JACK Faust [id number] 08/15/2013 08:26:00 08/15/2013 23:59:59 CLS Outpatient AMINA MATTHEWS MD [id number] 07/10/2013 13:22:00 07/10/2013 23:59:59 CLS Outpatient JOSIAH QUALITY IMPROVEMENT COORDINATORNAKIARASHEED S [id number] 06/02/2013 09:17:00 06/02/2013 23:59:59 CLS Outpatient JOSIAH QUALITY IMPROVEMENT COORDINATORNAKIARASHEED S [id number] 06/02/2013 09:17:00 06/02/2013 23:59:59 CLS Outpatient JOSIAH QUALITY IMPROVEMENT COORDINATOR, RASHEED S [id number] 02/12/2013 13:47:00 02/12/2013 23:59:59 CLS Outpatient JOSIAH QUALITY IMPROVEMENT COORDINATOR, RASHEED S [id number] 02/12/2013 13:47:00 02/12/2013 23:59:59 CLS Outpatient JOSIAH QUALITY IMPROVEMENT COORDINATOR, RASHEED S [id number] 06/27/2012 09:44:00 06/27/2012 23:59:59 CLS Outpatient RASHEED RAHMAN APRN Brainna [id number] 04/02/2012 09:21:00 04/02/2012 23:59:59 CLS Outpatient [id number] 04/02/2012 09:21:00 04/02/2012 23:59:59 CLS Outpatient RASHEED RAHMAN APRN [id number] 01/07/2013 09:53:00 Document Registration [id number] 10/15/2012 10:07:00 Document Registration [id number] 07/10/2017 09:24:00 07/10/2017 23:59:59 CLS Outpatient JEN SANTIAGO MD [facility] REHAB LT SHOULDER RCR [id number] 05/28/2017 10:12:00 05/28/2017 23:59:59 CLS Outpatient SOSA RESENDIZ MD [facility] WOUNDCARE [id number] 05/21/2017 08:43:00 05/21/2017 23:59:59 CLS Outpatient SOSA RESENDIZ MD [facility] WOUNDCARE [id number] 05/10/2017 07:08:00 05/10/2017 23:59:59 CLS Outpatient JOSEE ESCOTO FACC, ROGER MARIE CCDS [facility] CARD R06.02 SOB [id number] 05/08/2017 09:13:00 05/08/2017 23:59:59 CLS Outpatient MEDARDO DUFFY MD [facility] RAD SCREENING [id number] 05/01/2017 08:15:00 05/01/2017 23:59:59 CLS Outpatient JEN SANTIAGO MD [facility] LAB PRE OP LABS [id number] 11/22/2016 11:00:00 11/22/2016 23:59:59 CLS Preadmit SOSA ARZOLA MD [facility] RAD SHOULDER JOINT PAIN M25.512 [id number] 10/25/2016 09:50:00 10/25/2016 23:59:59 CLS Outpatient MEDARDO DUFFY MD [facility] LAB [id number] 09/08/2016 08:23:00 09/08/2016 14:54:00 DIS Outpatient SOSA RESENDIZ MD [facility] WOUNDCARE [id number] 07/29/2016 07:42:00 07/29/2016 23:59:59 CLS Outpatient SOSA ARZOLA MD [facility] RAD COMPLETE ROTATOR CUFF TEAR OR RUPTURE [id number] 07/12/2016 18:16:00 07/15/2016 13:40:00 DIS Inpatient YAMILET SEGAL MD [facility] 4TH HYPOKALEMIA, NEUROTIC SKIN WOUND LEFT THIGH [id number] 04/12/2016 11:25:00 04/13/2016 16:00:00 DIS Inpatient LAURA ROBLERO MD [facility] ICU HYPOTENSION DIZZINESS ACUTE RENAL FAILURE [id number] 04/03/2016 09:24:00 04/03/2016 23:59:59 CLS Outpatient RASHEED RAHMAN [facility] RAD BREAST CANCER SCREENING [id number] 01/05/2016 10:45:00 02/21/2016 13:49:00 DIS Outpatient SOSA ARZOLA MD [facility] REHAB R SHOULDER SCOPE; BICEP TENOTOMY;DCE;SAD [id number] 01/12/2016 15:26:00 01/12/2016 23:59:59 CLS Outpatient DINO TILLMAN [facility] RAD R PROXIMAL FOREARM MAS [id number] 01/04/2016 09:53:00 01/04/2016 10:47:00 DIS Emergency LIBERTY SANDOVAL APRN [facility] ER BEE STING [id number] 12/27/2015 19:50:00 12/28/2015 05:30:00 DIS Outpatient RASHEED RAHMAN [facility] SLEEP SNORING,CHOKING/ GASPING,DAYTIME SLEEPINESS [id number] 12/08/2015 10:23:00 12/08/2015 15:32:00 DIS Outpatient SOSA ARZOLA MD [facility] SDC ARTHRITIS [id number] 11/25/2015 13:03:00 11/25/2015 13:32:00 DIS Outpatient SOSA ARZOLA MD [facility] PREOP ARTHRITIS [id number] 05/17/2015 10:40:00 05/17/2015 23:59:59 CLS Outpatient MORAIMA NOEL DO [facility] LAB INFECTION [id number] 04/30/2015 10:56:00 04/30/2015 23:59:59 CLS Outpatient MORAIMA NOEL DO [facility] RAD COPD,BRONCHITIS [id number] 04/21/2015 07:48:00 04/21/2015 11:40:00 DIS Outpatient SOSA ARZOLA MD [facility] RIGHT CARPAL TUNNEL SYNDROME [id number] 04/12/2015 08:19:00 04/12/2015 23:59:59 CLS Outpatient SOSA ARZOLA MD [facility] PREOP RIGHT CARPAL TUNNEL RELEASE [id number] 03/30/2015 10:44:00 03/30/2015 23:59:59 CLS Outpatient MORAIMA NOEL DO [facility] LAB CHECK FOR DRUGS [id number] 03/24/2015 09:00:00 03/24/2015 13:15:00 DIS Outpatient SOSA ARZOLA MD [facility] LEFT CARPAL TUNNEL SYNDROME [id number] 03/19/2015 10:46:00 03/19/2015 23:59:59 CLS Outpatient RASHEED RAHMAN [facility] RAD SCREENING [id number] 02/10/2015 10:43:00 02/10/2015 11:26:00 DIS Outpatient SOSA ARZOLA MD [facility] REHAB L SHOULDER; BICEP TENOTOMY; OPEN RC REPAIR [id number] 01/13/2015 06:00:00 01/13/2015 10:55:00 DIS Outpatient SOSA ARZOLA MD [facility] LEFT SHOULDER SLAP TEAR; ROTATOR CUFF TEAR [id number] 01/07/2015 09:59:00 01/07/2015 23:59:59 CLS Outpatient SOSA ARZOLA MD [facility] PREOP LEFT SHOULDER SLAP TEAR; ROTATOR CUFF TEAR [id number] 11/11/2014 08:36:00 11/11/2014 13:50:00 DIS Outpatient NARAYAN ALMARAZ MD [facility] DYSKNESIA [id number] 11/06/2014 12:39:00 11/06/2014 23:59:59 CLS Outpatient NARAYAN ALMARAZ MD [facility] PREOP DYSKNESIA [id number] 10/29/2014 09:26:00 10/29/2014 23:59:59 CLS Outpatient MORAIMA NOEL DO [facility] CARD PAIN IN RIGHT UPPER QUADRANT [id number] 10/22/2014 08:21:00 10/22/2014 23:59:59 CLS Outpatient MORAIMA NOEL DO [facility] RAD RUQ PAIN [id number] 10/12/2014 10:02:00 10/12/2014 23:59:59 CLS Outpatient MORAIMA NOEL DO [facility] RAD FELL RT KNEE PAIN, LOWER BACK PAIN [id number] 09/23/2014 06:00:00 09/23/2014 10:20:00 DIS Outpatient RYAN JONES MD [facility] INTRINSIC SPHINCTER DEFICIENCY; INCONTINENCE [id number] 09/16/2014 10:27:00 09/16/2014 23:59:59 CLS Outpatient RYAN JONES MD [facility] PREOP INTRINSIC SPHINCTER DEFICIENCY; INCONTINENCE [id number] 07/28/2014 09:04:00 07/28/2014 23:59:59 CLS Outpatient SOSA ARZOLA MD [facility] RAD LEFT SHOULDER RTC [id number] 04/10/2014 14:46:00 04/10/2014 15:58:00 DIS Emergency LIBERTY SANDOVAL APRN [facility] ER FEVER, SOA, DIARRHEA [id number] 04/07/2014 13:56:00 04/07/2014 17:00:00 DIS Outpatient RASHEED RAHMAN [facility] REHAB KNEE PAIN [id number] 03/04/2014 06:00:00 03/04/2014 10:10:00 DIS Outpatient SOSA ARZOLA MD [facility] LEFT KNEE CHONDROMALASIA [id number] 02/27/2014 11:49:00 02/27/2014 23:59:59 CLS Outpatient SOSA ARZOLA MD [facility] PREOP LEFT KNEE CHONDROMALASIA [id number] 02/10/2014 09:42:00 02/10/2014 17:00:00 DIS Outpatient ROGER TRIPP MD, FACC, FACP CCDS [facility] CATH ANGINA SOB DIZZINESS [id number] 02/03/2014 09:43:00 02/03/2014 23:59:59 CLS Outpatient RASHEED RAHMAN [facility] RAD SCREENING [id number] 01/30/2014 08:46:00 01/30/2014 23:59:59 CLS Outpatient JAMIE BRASHER MD [facility] RECTAL BLEEDING [id number] 01/29/2014 09:11:00 01/29/2014 23:59:59 CLS Outpatient JAMIE BRASHER MD [facility] PREOP RECTAL BLEEDING [id number] 10/15/2013 08:45:00 10/31/2013 12:22:00 DIS Outpatient DINO TILLMAN [facility] REHAB B LE WEAKNESS;S/P R TKA ;SEVERE L DJD [id number] 01/09/2013 11:24:00 01/09/2013 23:59:59 CLS Outpatient RASHEED RAHMAN [facility] RAD SCREENING [id number] 07/19/2017 17:29:00 Document Registration [id number] 03/17/2015 09:34:00 Document Registration [id number] 07/27/2014 13:00:00 Document Registration [id number] 01/15/2012 10:47:00 Document Registration [id number] 10/23/2011 05:44:00 Document Registration [id number] 10/20/2011 09:40:00 Document Registration [id number] 08/12/2011 21:58:00 Document Registration [id number] 05/12/2010 11:10:00 Document Registration
== END 2017-07-19 20:52 | disposition home or self-care (01) ==
LOC: EDUNIT# 16:25 → ER 16:27
DX: J44.1 Chronic obstructive pulmonary disease with (acute) exacerbation (principal); R10.13 Epigastric pain; G47.30 Sleep apnea, unspecified; E78.00 Pure hypercholesterolemia, unspecified; I10 Essential (primary) hypertension; K21.9 Gastro-esophageal reflux disease without esophagitis; F41.9 Anxiety disorder, unspecified; F15.10 Other stimulant abuse, uncomplicated; F17.210 Nicotine dependence, cigarettes, uncomplicated; Z88.5 Allergy status to narcotic agent; Z96.651 Presence of right artificial knee joint; Z90.710 Acquired absence of both cervix and uterus; Z87.448 Personal history of other diseases of urinary system; Z88.2 Allergy status to sulfonamides; Z88.8 Allergy status to other drugs, medicaments and biological substances
CPT/HCPCS: 36415; 71046; 80053; 83690; 85025; 87804; 94640; 96374; 96375

== ENCOUNTER 2017-08-23 08:00 | Outpatient (RCR) | payer MEDICARE, MEDICAID ==
[~2017-08-23 08:00] MED LIST changes: +OMEP20TA7 PO; +ONDA4TAB8 SL
== END 2017-08-27 | disposition home or self-care (01) ==
PROVIDERS: ATTEND Orthopaedic Surgery
DX: Z47.89 Encounter for other orthopedic aftercare (principal); M25.512 Pain in left shoulder

== ENCOUNTER 2017-09-12 08:19 | Outpatient (RCR) | payer MEDICARE, MEDICAID | END 2017-11-09 10:48 | disposition home or self-care (01) | PROVIDERS: ATTEND Orthopaedic Surgery | DX: Z47.89 Encounter for other orthopedic aftercare (principal); M25.512 Pain in left shoulder; M25.612 Stiffness of left shoulder, not elsewhere classified ==

== ENCOUNTER → 2018-03-05 | Outpatient (CLI) | payer MEDICARE, MEDICAID ==
[~2018-03-05] MED LIST changes: +ASPI-586 PO; +FLUO20CA42 PO; +HYDR50CA3 PO; +MELO7.5T46 PO; +NITR100C PO; +QUIN20TA16 PO
== END ==
LOC: RAD 11:40
PROVIDERS: ATTEND Nurse Practitioner Family
DX: I70.213 Atherosclerosis of native arteries of extremities with intermittent claudication, bilateral legs (principal); I10 Essential (primary) hypertension; E78.4 Other hyperlipidemia; F17.200 Nicotine dependence, unspecified, uncomplicated
CPT/HCPCS: 93923

== ENCOUNTER 2018-03-17 10:54 | Emergency (ER) | payer MEDICARE, MEDICAID ==
[~2018-03-17] VITALS: Ht 160 cm; Wt 120.2 kg
[~2018-03-17 10:54] MED LIST changes: -ASPI-586 PO; -FLUO20CA42 PO; -HYDR50CA3 PO; -MELO7.5T46 PO; -NITR100C PO; -QUIN20TA16 PO
--- OUTSIDE RECORDS SUMMARY | 2018-03-17 11:02 | XMS REPORT ---
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 Name Role Phone THOMAS JENNINGS Unavailable PROBLEMS Type Condition ICD9-CM Code BLX01-JL Code Onset Dates Condition Status SNOMED Code Problem Mild chronic obstructive pulmonary disease J44.9 Active 635897840 Problem Essential hypertension I10 Active 19434261 Problem On home oxygen therapy Z99.81 Active 965283372644 Problem Exertional asthma J45.990 Active 47398783 Problem Snoring R06.83 Active 15314478 Problem COPD (chronic obstructive pulmonary disease) with chronic bronchitis J44.9 Active 944314330 Problem History of illicit drug use Z87.898 Active 944532937 Problem Major depressive disorder, recurrent episode, moderate F33.1 Active 426246045 Problem Neuropathy G62.9 Active 104889140 Problem COPD exacerbation J44.1 Active 561811258 Problem 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 Active 49379416 Problem 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 Active 32321083 Problem Dysthymic disorder F34.1 Active 76402897 Problem MRSA (methicillin resistant staph aureus) culture positive Z22.322 Active 533129711 Problem Impaired circulation I99.9 Active 53683644 Problem Varicose veins of both lower extremities I83.93 Active 14421358 Problem Upper respiratory tract infection, unspecified type J06.9 Active 57619272 Problem Panic disorder without agoraphobia F41.0 Active 28953702 Problem Mild persistent asthma without complication J45.30 Active 152498636 Problem Fatigue R53.83 Active 01653568 Problem Other chronic pain G89.29 Active 71649992 ALLERGIES No Information ENCOUNTERS Encounter Location Date Diagnosis [facility] [address] [facility] [id number] [address] May, [facility] [address] [facility] [id number] [place] [address] 80725- 1105 Feb, [facility] [address] [address]- 1351 Feb, Low back pain M54.5 ; Other chronic pain G89.29 ; Exertional asthma J45.990 and Encounter for immunization Z23 [facility] [address] [address]- 8215 Feb, Skin fissures R23.4 ; Neuropathy G62.9 and Onychomycosis B35.1 [place] [address] [address]- 1149 05 Feb, 2018 Dysthymic disorder F34.1 [place] [address] 34236- 8415 Feb, [place] [address] 79335- 5833 Jan, [place] [address] 61557- 9871 Jan, Abrasion of right elbow, initial encounter S50.311A ; Abrasion, right knee, initial encounter S80.211A and Sprain of other ligament of right ankle, initial encounter S93.491A [facility] [address] [place] [id number] [place] [address] 90927- 8858 Jan, [facility] [address] [address]31 Jan, Injury of left ankle, initial encounter S99.912A ; Fall down stairs, initial encounter W10.8XXA and BMI 45.0-49.9, adult Z68.42 [place] [address] 79253- 2082 Jan, COPD exacerbation J44.1 [place] [address] 50863- 6881 Jan, Dysfunction of both eustachian 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 [place] [address] [place] [id number] [place] [address] 44862- 0007 08 Jan, 2018 Bronchitis J40 and Acute suppurative otitis media of left ear without spontaneous rupture of tympanic membrane, recurrence not specified H66.002 [place] [address] [place] [id number] [place] [address] 14314- 7129 Jan, [place] [address] 55071- 2827 Jan, Bronchitis J40 and BMI 40.0-44.9, adult Z68.41 [place] [address] 28879- 6095 Jan, [place] [address] 32533- 9375 Dec, Gastric pain R10.9 [place] [address] 76325- 2760 Dec, [place] [address] 26088- 1624 Dec, History of illicit drug use Z87.898 ; Neuropathy G62.9 ; COPD (chronic obstructive pulmonary disease) with chronic bronchitis J44.9 and Acute pain of right knee M25.561 [place] [address] [place] [id number] [place] [address] 20142- 9252 Nov, [place] [address] [place] [id number] [place] [address] 90701- 4434 Nov, Onychomycosis B35.1 and Contusion of left foot, subsequent encounter S90.32XD [place] [address] 20870- 2332 Nov, COPD exacerbation J44.1 [place] [address] [place] [id number] [place] [address] 89317- 6263 Sep, [place] [address] 14684- 4367 Sep, Dysthymic disorder F34.1 ; Tobacco abuse Z72.0 ; Pain in right knee M25.561 ; Pain in left knee M25.562 ; Other chronic pain G89.29 and BMI 40.0-44.9, adult Z68.41 [place] [address] [place] [id number] [place] [address] 48226- 0764 Aug, Major depressive disorder, recurrent episode, moderate F33.1 and 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 [place] [address] 84527- 9861 14 Aug, 2017 Dysthymic disorder F34.1 ; Non-pressure chronic ulcer of left thigh, unspecified ulcer stage L97.129 ; Tobacco abuse Z72.0 ; Mild chronic obstructive pulmonary disease J44.9 and Forgetfulness R68.[address] 91585- 5267 Aug, Onychomycosis B35.1 ; Fissure in skin of foot R23.4 and Foot callus L84 [facility] [place] [address] 49[address] -9899 Jul, Right medial knee pain M25.561 ; Upper respiratory tract infection, unspecified type J06.9 and BMI 40.0-44.9, adult Z68.41 [facility] [place] [id number] [place] [address] 72535 -2965 08 Jul, 2017 Nausea and vomiting, intractability of vomiting not specified, unspecified vomiting type R11.2 ; Left ear pain H92.02 and Gastric pain R10.9 [place] [address] [place] [id number] [place] [address] 67064- 8293 Apr, Encounter for immunization Z23 [place] [address] 04712- 7881 Apr, Onychomycosis B35.1 ; Xerosis of skin L85.3 ; Neuropathy G62.9 and 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 [facility] [address], [place] [address] 5[address] Jan, Onychomycosis B35.1 and Neuropathy G62.9 [facility] [address], [place] [address]- 1131 Dec, [facility] [address] [place] [id number] [place] [address] 27176- 0952 Dec, [facility] [address] [place] [id number] [place] [address] 03415- 3352 Nov, [facility] [id number] [place] [address], [place] [address]- 5192 Aug, [facility] [address] [place] [id number] [place] [address] 56016- 5944 Aug, [facility] [id number] [place] [address] 23643- 3593 Jul, [facility] [address], [place] [address]- 4471 Jul, [facility] [id number] [place] [address] 78564- 6898 Jul, Decubitus ulcer of left thigh, stage 2 L89.892 [facility] [address], [place] [address]- 7266 Jul, Decubitus ulcer of left thigh, stage 2 L89.892 [facility] [address], [place] [address]- 1666 Jul, [facility] [address], [place] [address]- 9017 Jul, Decubitus ulcer of left thigh, stage 2 L89.892 [facility] [address], [place] [address]- 5276 Jul, [facility] [id number] [place] [address] 03561- 6285 Jul, Cellulitis of other specified site L03.818 ; Illicit drug use F19.90 and Decubitus ulcer of left thigh, stage 2 L89.892 [facility] [id number] [place] [address] 99336- 2613 08 Jul, 2016 [facility] [address] [place] [id number] [place] [address] 79806- 9967 Jul, Cellulitis of right breast N61.0 [facility] [address] [place] [id number] [place] [address] 60568- 8031 Jun, [facility] [address] [place] [id number] [place] [address] 32695- 4188 Jun, [facility] [address] [place] [id number] [place] [address] 95623- 1107 Jun, Wheezing R06.2 and Arthralgia, unspecified joint M25.50 [facility] [address] [place] [id number] [place] [address] 69467- 2554 May, [facility] [address] [place] [id number] [place] [address] 44900- 9734 May, [facility] [address] [place] [id number] [place] [address] 00726- 4156 May, [place] [address] [place] [id number] [place] [address] 66588- 6493 May, Shortness of breath R06.02 [facility] [address] [place] [id number] [place] [address] 81619- 0835 May, Onychomycosis B35.1 and Fissure in skin of foot R23.4 [facility] [address] [place] [id number] [place] [address] 32674- 7409 Apr, [facility] [id number] [place] [address] 15602 -6987 Apr, Dizziness R42 [facility] [address], [place] [address]- 4738 14 Apr, 2016 Shortness of breath R06.02 ; Essential hypertension I10 ; Dizziness R42 and On home oxygen therapy Z99.81 [facility] [address], [place] [address]- 4364 10 Apr, 2016 [facility] [address] [place] [id number] [place] [address] 12931- 5337 08 Apr, 2016 [facility] [address] [place] [id number] [place] [address] 34482- 0622 Apr, [facility] [address] [place] [id number] [place] [address] 13155- 3241 Apr, [facility] [address] [place] [id number] [place] [address] 00115- 6726 Apr, [facility] [address] [place] [id number] [place] [address] 54784- 6637 Apr, [facility] [address] [place] [id number] [place] [address] 11952- 1575 Apr, [facility] [address] [place] [id number] [place] [address] 66259- 7702 Mar, Mild chronic obstructive pulmonary disease J44.9 [facility] [address], [place] [address]- 4464 Mar, [facility] [address] [place] [id number] [place] [address] 59425- 4169 Mar, Epigastric pain R10.13 ; Low back pain M54.5 ; Other chronic pain G89.29 and Breast cancer screening Z12.39 [facility] [address] [place] [id number] [place] [address] 33837- 1135 Mar, [facility] [address], [place] [address]- 5826 Mar, [facility] [address] [place] [id number] [place] [address] 83018- 5662 Feb, [facility] [address], [place] [address]- 2514 Feb, [facility] [address] [place] [id number] [place] [address] 33636- 4883 Feb, Fissure in skin of foot R23.4 and Onychomycosis B35.1 [facility] [id number] [place] [address] 13257- 7770 Jan, 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 [facility] [id number] [place] [address] 85831- 2561 Dec, 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 [place] [id number] [place] [address] 55750- 6006 Dec, Mild persistent asthma without complication J45.30 ; Dysthymic disorder F34.1 and Upper respiratory tract infection, unspecified type J06.9 [place] [id number] [place] [address] 68661- 0024 Nov, 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 [place] [address] [place] [id number] [place] [address] 10536- 4718 October, 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 [place] [id number] [place] [address] 24337- 6872 Sep, Panic disorder without agoraphobia F41.0 ; 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 and Dysthymic disorder F34.1 [facility] [address], [place] [address]- 0222 Sep, Panic attacks F41.0 [facility] [address] [place] [id number] [place] [address] 47597- 8499 Sep, [facility] [id number] [place] [address] 61685- 4711 Sep, Panic disorder without agoraphobia F41.0 ; Varicose veins of both lower extremities I83.93 and Fatigue R53.83 [place] [address], [place] [address]- 3875 14 Sep, 2015 Fatigue R53.83 [place] [address] [place] [id number] [place] [address] 50538- 8123 05 Sep, 2015 [place] [address], [place] [address]- 0837 Aug, [place] [address] [place] [id number] [place] [address] 89360- 5118 Aug, [place] [address] [place] [id number] [place] [address] 14553- 5374 Aug, 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 [place] [address] [place] [id number] [place] [address] 74014- 5849 Aug, Panic disorder without agoraphobia F41.0 ; 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 and Dysthymic disorder F34.1 [place] [address], [place] [address]- 8090 Aug, Shortness of breath R06.02 ; Panic attacks F41.0 ; COPD ( chronic obstructive pulmonary disease) J44.9 ; Tobacco abuse Z72.0 ; Family history of diabetes mellitus Z83.3 and Weight gain R63.5 [place] [address], [place] [address]- 4226 Aug, [place] [address], [place] [address]- 2765 Jul, [place] [address], [place] [address]- 1491 Jun, Onychomycosis B35.1 ; Neuropathy G62.9 and Impaired circulation I99.9 [place] [address], [place] [address]- 9567 09 Mar, 2015 Fissure in skin of foot R23.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 [facility] [address], [place] [address]- 4199 18 Feb, 2015 Family history of coronary arteriosclerosis V17.3 [facility] [address] [place] [id number] [place] [address] 97877- 6498 15 Feb, 2015 Allergic rhinitis due to pollen 477.0 ; Unspecified breast screening V76.10 ; Anxiety 300.00 and Family history of coronary arteriosclerosis V17.3 [facility] [address] [place] [id number] [place] [address] 51503- 5983 Jan, [facility] [address] [place] [id number] [place] [address] 81994- 2617 Dec, [facility] [address] [place] [id number] [place] [address] 57823- 7563 Dec, Onychomycosis 110.1 and Skin fissures 709.8 [facility] [address] [place] [id number] [place] [address] 19237- 1948 Sep, [facility] [address] [place] [id number] [place] [address] 67649- 1621 Sep, [facility] [address] [place] [id number] [place] [address] 42814- 4495 Aug, [facility] [address], [place] [address]- 6970 Aug, [facility] [address] [place] [id number] [place] [address] 98374- 9246 Jul, [facility] [address], [place] [address]- 4517 Jul, [facility] [address] [place] [id number] [place] [address] 18546- 5926 Jun, [facility] [address] [place] [id number] [address]- 0322 Jun, [facility] [address] [place] [id number] [place] [address]- 2665 Jun, [facility] [place] [facility] [address] [id number] [place] [address]- 0035 Jun, [facility] [place] [facility] [address] [id number] [place] [address]- 2875 Jun, [facility] [place] [facility] [address] [id number] [place] [address]- 1915 May, [facility] [place] [facility] [address] [id number] [place] [address]- 1976 May, [facility] [place] [facility] [address] [id number] [place] [address]- 1253 May, [facility] [place] [facility] [address] [id number] [place] [address]- 9818 May, [facility] [place] [facility] [address] [id number] [place] [address]- 1287 May, [facility] [place] [facility] [address] [id number] [place] [address]- 1882 May, [facility] [place] [facility] [address] [id number] [place] [address]- 1350 May, [facility] [place] [facility] [address] [id number] [place] [address]- 9637 May, [facility] [place] [facility] [address] [id number] [place] [address]- 3882 Apr, [facility] [place] [facility] [address] [id number] [place] [address]- 4999 Apr, [facility] [place] [facility] [address] [id number] [place] [address]- 6912 Apr, [facility] [place] [facility] [address] [id number] [place] [address]- 8358 Apr, [facility] [place] [facility] [address] [id number] [place] [address]- 1240 Apr, [facility] [place] [facility] [address] [id number] [place] [address]- 9168 Apr, [facility] [place] [facility] [address] [id number] [place] [address]- 0207 Apr, [facility] [place] [facility] [address] [id number] [place] [address]- 5615 Apr, [facility] [place] [facility] [address] [id number] [place] [address]- 0335 Apr, [facility] [place] [facility] [address] [id number] [place] [address]- 8196 Apr, [facility] [place] [facility] [address] [id number] [place] [address]- 7238 Mar, [facility] [place] [facility] [address] [id number] [place] [address]- 9775 Mar, [facility] [place] [facility] [address] [id number] [place] [address]- 3276 Mar, [facility] [place] [facility] [address] [id number] [place] [address]- 0990 Mar, [facility] [place] [facility] [address] [id number] [place] [address]- 9688 Mar, [facility] [place] [facility] [address] [id number] [place] [address]- 0156 Mar, [facility] [place] [facility] [address] [id number] [place] [address]- 5402 Mar, [facility] [place] [facility] [address] [id number] [place] [address]- 8599 Mar, [facility] [place] [facility] [address] [id number] [place] [address]- 6591 Mar, [facility] [place] [facility] [address] [id number] [place] [address]- 5391 Mar, [facility] [place] [facility] [address] [id number] [place] [address]- 6155 Mar, [facility] [place] [facility] [address] [id number] [place] [address]- 7846 Mar, [facility] [place] [facility] [address] [id number] [place] [address]- 2415 Mar, [facility] [place] [facility] [address] [id number] [place] [address]- 3556 Mar, [facility] [place] [facility] [address] [id number] [place] [address]- 7354 Mar, [facility] [place] [facility] [address] [id number] [place] [address]- 5525 Mar, [facility] [place] [facility] [address] [id number] [place] [address]- 3862 20 Mar, 2014 [facility] [place] [facility] [address] [id number] [place] [address]- 1818 16 Mar, 2014 [facility] [place] [facility] [address] [id number] [place] [address]- 3746 16 Mar, 2014 [facility] [place] [facility] [address] [id number] [place] [address]- 5617 15 Mar, 2014 [facility] [place] [facility] [address] [id number] [place] [address]- 8898 14 Mar, 2014 [facility] [place] [facility] [address] [id number], [place] [address]- 6854 14 Mar, 2014 [facility] [place] [facility] [address] [id number], [place] [address]- 5933 14 Mar, 2014 [facility] [place] [facility] [address] [id number] [place] [address]- 3933 14 Mar, 2014 [facility] [place] [facility] [address] [id number], [place] [address]- 0049 09 Mar, 2014 [facility] [place] [facility] [address] [id number] [place] [address]- 5906 09 Mar, 2014 [facility] [place] [facility] [address] [id number] [place] [address]- 6112 Mar, 2013 [facility] [place] [facility] [address] [id number] [place] [address]- 7689 Mar, 2013 [facility] [place] [facility] [address] [id number] [place] [address]- 5012 Feb, 2013 [facility] [place] [facility] [address] [id number] [place] [address]- 8351 30 Feb, 2013 [facility] [place] [facility] [address] [id number] [place] [address]- 8412 30 Feb, 2013 [facility] [place] [facility] [address] [id number] [place] [address]- 0190 30 Feb, 2013 [facility] [place] [facility] [address] [id number] [place] [address]- 8690 Feb, 2013 [facility] [place] [facility] [address] [id number] [place] [address] Feb, 2013 [facility] [place] [facility] [address] [id number] [place] [address] Feb, 2013 [facility] [place] [facility] [address] [id number] [place] [address] Feb, 2013 [facility] [place] [facility] [address] [id number] [place] [address] Feb, 2013 [facility] [place] [facility] [address] [id number] [place] [address] Feb, 2013 [facility] [place] [facility] [address] [id number] [place] [address] Feb, 2013 [facility] [place] [facility] [address] [id number] [place] [address] Feb, 2013 [facility] [place] [facility] [address] [id number] [place] [address] Jan, [facility] [place] [facility] [address] [id number] [place] [address] Jan, [facility] [place] [facility] [address] [id number] [place] [address] Jan, [facility] [place] [facility] [address] [id number] [place] [address] Jan, [facility] [place] [facility] [address] [id number] [place] [address] Jan, [facility] [place] [facility] [address] [id number] [place] [address] Jan, [facility] [place] [facility] [address] [id number] [place] [address] Jan, [facility] [place] [facility] [address] [id number] [place] [address] Jan, [facility] [place] [facility] [address] [id number] [place] [address] Jan, [facility] [place] [facility] [address] [id number] [place] [address] Jan, [facility] [place] [facility] [address] [id number] [place] [address] Jan, [facility] [place] [facility] [address] [id number] [place] [address] Jan, [facility] [place] [facility] [address] [id number] [place] [address] Jan, [facility] [place] [facility] [address] [id number] [place] [address] Dec, [facility] [place] [facility] [address] [id number] [place] [address] Dec, [facility] [place] [facility] [address] [id number] [place] [address] Dec, [facility] [place] [facility] [address] [id number] [place] [address] Dec, [facility] [place] [facility] [address] [id number] [place] [address] Dec, 2013 [facility] [place] [facility] [address] [id number] [place] [address] Dec, [facility] [place] [facility] [address] [id number] [place] [address] Dec, [facility] [place] [facility] [address] [id number] [place] [address] Dec, [facility] [place] [facility] [address] [id number] [place] [address] Dec, [facility] [place] [facility] [address] [id number] [place] [address] Dec, [facility] [place] [facility] [address] [id number] [place] [address] Dec, [facility] [place] [facility] [address] [id number] [place] [address] Dec, [facility] [place] [facility] [address] [id number] [place] [address] Dec, [facility] [place] [facility] [address] [id number] [place] [address] Dec, [facility] [place] [facility] [address] [id number] [place] [address] Dec, [facility] [place] [facility] [address] [id number] [place] [address] Dec, [facility] [place] [facility] [address] [id number] [place] [address] Dec, [facility] [place] [facility] [address] [id number] [place] [address] Dec, [facility] [place] [facility] [address] [id number] [place] [address] Nov, [facility] [facility] [address] [id number] [place] [address] Nov, [facility] [place] [facility] [address] [id number] [place] [address] Nov, [facility] [place] [facility] [address] [id number] [place] [address] Nov, [facility] [place] [facility] [address] [id number] [place] [address] Nov, [facility] [place] [facility] [address] [id number] [place] [address] 63[address] Nov, [facility] [place] [facility] [address] [id number] [place] [address] 49[address] Nov, [facility] [place] [facility] [address] [id number] [place] [address] Nov, [facility] [place] [facility] [address] [id number] [place] [address] 06[address] Nov, [facility] [place] [facility] [address] [id number] [place] [address] 2312 Nov, [facility] [place] [facility] [address] [id number] [place] [address] 7075 Nov, [facility] [place] [facility] [address] [id number] [place] [address]262 Nov, [facility] [place] [facility] [address] [id number] [place] [address] 5986 Nov, [facility] [place] [facility] [address] [id number] [place] [address]- 8433 Nov, [facility] [place] [facility] [address] [id number] [place] [address] 3141 Nov, [facility] [place] [facility] [address] [id number] [place] [address]- 8589 Nov, [facility] [place] [facility] [address] [id number] [place] [address]- 7329 Nov, [facility] [place] [facility] [address] [id number] [place] [address]- 5752 Nov, [facility] [place] [facility] [address] [id number] [place] [address]- 5018 Nov, [facility] [place] [facility] [address] [id number] [place] [address]- 0103 Nov, [facility] [place] [address] [id number] [place] [address]- 5141 October, [facility] [place] [facility] [address] [id number] [place] [address] 3442 October, [facility] [place] [facility] [address] [id number] [place] [address]- 1691 October, [facility] [place] [address] [id number] [place] [address]- 6319 October, [facility] [place] [address] [id number] [place] [address]- 0845 Sep, [facility] [place] [address] [id number] [place] [address]- 3898 Sep, [facility] [address] [id number] [place] [address]- 4985 Sep, [facility] [place] [address] [id number] [place] [address]- 4751 Sep, [facility] [place] [facility] [address] [id number] [place] [address]- 7055 Sep, [facility] [address] [id number], [place] [address] 48[address] Sep, [facility] [address] [id number] [place] [address]- 7774 Sep, [facility] [place] [address] [id number] [place] [address] Sep, [facility] [address] [id number] [place] [address]- 5929 Sep, [facility] [address] [id number] [place] [address]- 1111 27 Aug, 2013 [facility] [address] [id number] [place] [address]- 4062 Aug, [facility] [address] [id number] [place] [address]- 2846 Aug, [facility] [address] [id number] [place] [address]- 0286 Aug, [facility] [place] [address] [id number] [place] [address]- 0600 Aug, [facility] [address] [id number] [place] [address]- 3682 Aug, [facility] [address] [id number] [place] [address]- 7511 Aug, [facility] [address] [id number] [place] [address]- 4910 Aug, [facility] [address] [id number] [place] [address]- 3321 Jul, [facility] [address] [id number] [place] [address]- 0298 Jul, [facility] [address] [id number] [place] [address]- 0647 Jun, [facility] [address] [id number] [place] [address]- 8394 Jun, [facility] [address] [id number] [place] [address]- 8984 Jun, [facility] [address] [id number] [place] [address]- 1339 Jun, [facility] [address] [id number] [place] [address]- 9409 Jun, [facility] [address] [id number] [place] [address]- 1597 Jun, [facility] [address] [id number] [place] [address]- 5135 Jun, [facility] [address] [id number] [place] [address]- 0656 Jun, [facility] [address] [id number] [place] [address]- 8268 Jun, [facility] [address] [id number] [place] [address]- 7800 Jun, [facility] [address] [id number] [place] [address]- 2871 Jun, [facility] [address] [id number] [place] [address]- 8025 Jun, [facility] [address] [id number] [place] [address]- 6844 May, [facility] [address] [id number] [place] [address]- 8393 May, [facility] [address] [id number] [place] [address]- 8895 May, [facility] [address] [id number] [place] [address]- 5131 May, [facility] [address] [id number] [place] [address]- 4270 May, [facility] [address] [id number] [place] [address]- 8904 May, [facility] [address] [id number] [place] [address]- 9485 May, [facility] [address] [id number] [place] [address] May, [facility] [address] [id number] [place] [address]- 5978 May, [facility] [address] [id number] [place] [address]- 6536 May, [facility] [address] [id number] [place] [address]- 5608 May, [facility] [address] [id number] [place] [address]- 9465 May, [facility] [address] [id number] [place] [address] May, [facility] [address] [id number] [place] [address]- 0821 Apr, [facility] [address] [id number] [place] [address]- 4633 Apr, [facility] [address] [id number] [place] [address]- 7341 Mar, [facility] [address] [id number] [place] [address]- 5310 Mar, [facility] [address] [id number] [place] [address]- 3052 24 Feb, 2013 [facility] [address] [id number] [place] [address]- 4628 Feb, [facility] [address] [id number] [place] [address]- 5773 Feb, [facility] [address] [id number] [place] [address]- 0492 Feb, [facility] [address] [id number] [place] [address]- 2526 Jan, [facility] [address] [id number] [place] [address]- 6956 Jan, [facility] [address] [id number] [place] [address]34 Jan, [facility] [address] [id number] [place] [address]- 8452 Jan, [facility] [address] [id number] [place] [address]- 2546 Jan, [facility] [address] [id number] [place] [address]- 5186 Jan, [facility] [address] [id number] [place] [address]- 2546 Dec, [facility] [address] [id number] [place] [address]- 6656 Dec, [facility] [address] [id number] [place] [address]- 5935 Dec, [facility] [address] [id number] [place] [address]- 7509 Dec, [facility] [address] [id number] [place] [address]- 7106 Nov, [facility] [address] [id number] [place] [address]- 3056 October, [facility] [address] [id number] [place] [address]- 7291 October, [facility] [address] [id number] [place] [address]- 6256 October, [facility] [address] [id number] [place] [address]- 2440 Sep, [facility] [address] [id number] [place] [address]- 2546 Sep, [facility] [address] [id number] [place] [address]- 7401 Jun, [facility] [address] [id number] [place] [address]- 2546 Jun, [facility] [address] [id number] [place] [address]- 2546 Jun, [facility] [address] [id number] [place] [address]- 6178 Apr, [facility] [address] [id number] [place] [address]- 5801 Apr, [facility] [address] [id number] [place] [address]- 8425 Apr, [facility] [address] [id number] [place] Apr, [facility] [address] [id number] [place] [address]- 0357 Mar, [facility] [address] [id number] [place] [address]- 5709 Mar, [facility] [address] [id number] [place] [address]- 7938 Mar, [facility] [address] [id number] [place] [address]- 7622 Mar, [facility] [address] [id number] [place] [address]- 8320 Feb, [facility] [address] [id number] [place] [address]- 9000 Feb, [facility] [address] [id number] [place] [address]- 2467 Feb, [facility] [address] [id number] [place] [address]- 5174 Jan, [facility] [address] [id number], [place] [address]- 8720 Jan, [facility] [address] [id number] [place] [address]- 6439 Jan, [facility] [address] [id number] [place] [address]- 6679 Jan, [facility] [address] [id number] [place] [address]- 3341 Dec, [facility] [address] [id number] [place] [address]- 8203 Dec, [facility] [address] [id number] [place] [address]- 0854 Nov, [facility] [address] [id number] [place] [address]- 7492 Nov, [facility] [address] [id number] [place] [address]- 7960 October, [facility] [address] [id number] [place] [address]- 7866 October, [facility] [address] [id number] [place] [address]- 5508 October, [facility] [address] [id number] [place] [address]- 9110 Sep, [facility] [address] [id number] [place] [address]- 9963 Sep, [facility] [address] [id number] [place] [address]- 1157 Sep, [facility] [address] [id number] [place] [address]- 4604 Aug, [facility] [address] [facility] [id number] [place] [address]- 2021 Aug, [facility] [address] [id number] [place] [address]- 6401 Aug, [facility] [address] [id number] [place] [address]- 7586 Aug, [facility] [address] [id number] [place] [address]- 5441 Aug, [facility] [address] [id number] [place] [address]- 1900 Jul, [facility] [address] [id number] [place] [address]- 0785 16 Jul, 2011 [facility] [address] [id number] [place] [address]- 7144 Jul, [facility] [address] [id number] [place] [address]- 1666 Jul, [facility] [address] [id number] [place] [address]- 9776 Jul, [facility] [address] [id number] [place] [address]- 5253 Jul, [facility] [address] [id number] [place] [address]- 2803 Jul, [facility] [facility] [address] [id number] [place] [address]- 9016 Jul, [facility] [address] [id number] [place] [address]- 9199 Jun, [facility] [address] [id number] [place] [address]- 2937 Jun, [facility] [address] [id number] [place] [address]- 4513 May, [facility] [address] [id number] [place] [address]- 2899 May, [facility] [address] [id number] [place] [address]- 2612 May, [facility] [facility] [address] [id number] [place] [address]- 3363 May, [facility] [place] [facility] [address] [id number] [place] [address]- 8578 Apr, [facility] [place] [facility] [address] [id number] [place] [address]- 2008 Apr, [facility] [place] [facility] [address] [id number] [place] [address]- 6850 Apr, [facility] [place] [facility] [address] [id number] [place] 18 Mar, 2011 [facility] [place] [facility] [address] [id number] [place] [address]- 2876 18 Mar, 2011 [facility] [place] [facility] [address] [id number] [place]6 18 Mar, 2011 [facility] [place] [facility] [address] [id number] [place] [address]- 6096 2011 [facility] [place] [facility] [address] [id number] [place] [address]- 6515 12 Dec, 2010 [facility] [place] [facility] [address] [id number] [place] 5217 October, [facility] [place] [facility] [address] [id number] [place] [address]- 0636 28 May, 2010 [facility] [place] [facility] [address] [id number] [place] [address]- 9705 13 May, 2010 [facility] [place] [facility] [address] [id number] [place] [address]- 8521 13 May, 2010 [facility] [place] [facility] [address] [id number] [place] [address]- 9306 06 May, 2010 [facility] [place] [facility] [address] [facility] [id number] [place] [address]- 7119 26 Mar, 2010 [facility] [place] [facility] [address] [id number] [place] [address]- 4727 25 Mar, 2010 [facility] [place] [facility] [address] [id number] [place] [address]- 2543 31 May, 2009 [facility] [place] [facility] [address] [id number] [place] [address]- 9547 30 May, 2009 [facility] [place] [facility] [address] [facility] [id number] [place] [address]- 2546 08 May, 2009 [facility] [place] [facility] [address] [facility] [id number] [place] 5597 08 May, 2009 [facility] [place] [facility] [address] [facility] [id number] [place] [address]- 6297 Apr, [facility] [address] [facility] [id number], [place] [address]- 0272 Apr, [facility] [address] [facility] [id number] [place] [address] October, IMMUNIZATIONS No Known Immunizations SOCIAL HISTORY Never Assessed REASON FOR VISIT Refill request PLAN OF CARE VITAL SIGNS MEDICATIONS Unknown Medications RESULTS No Results PROCEDURES No Known procedures INSTRUCTIONS MEDICATIONS ADMINISTERED No Known Medications MEDICAL (GENERAL) HISTORY Type Description Date Medical History Anxiety disorder Medical History depression Medical History acid reflux Medical History asthma Surgical History carpal tunnel release bilateral Surgical History cholecystectomy Surgical History right knee replacement Surgical History left knee arthroscopy Surgical History hysterectomy, total with bilateral salpingo-oophorectomy (BSO ) Surgical History left rotator cuff surgery 05/17/2017 Hospitalization History Surgeries only Hospitalization History hypotension, dizziness--[facility] 04/12/2016 Hospitalization History Colonoscopy 01/30/2014
--- OUTSIDE RECORDS SUMMARY | 2018-03-17 11:02 | XMS REPORT | Clinical Summary ---
Author Author [facility] Organization [facility] Address Unknown Phone Unavailable Care Team Providers Care Script Supervisor Name Role Phone Sayra Nickerson MD Unavailable [...] in the Health Information Management department at [phone] for further assistance in locating additional records.[facility] Allergies Active Allergy Reactions Severity Noted Date [...] Taken Blood Pressure 128/75 04/13/2015 12:05 PM [employer] Pulse 81 04/13/2015 12:05 PM [employer] Temperature 36.5 C (97.7 F) 04/13/2015 12:05 PM [employer] Respiratory Rate 16 03/22/2015 3:32 PM CDT Oxygen Saturation 96% 04/13/2015 12:05 PM [employer] Inhaled Oxygen - - Concentration Weight 115 kg (253 lb 8.5 oz) 04/13/2015 9:11 AM [employer] Height 162.6 cm (5' 4") 04/13/2015 9:11 AM [employer] Body Mass Index 43.52 04/13/2015 9:11 AM [employer] Plan of Treatment Health Maintenance Due Date Last Done Comments HEPATITIS C SCREENING 1962 PHYSICAL (COMPREHENSIVE) 1969 EXAM PERTUSSIS VACCINE 1973 HIV SCREENING 1977 TETANUS VACCINE 1979 CERVICAL CANCER SCREENING 1992 BREAST CANCER SCREENING 2002 COLORECTAL CANCER 2012 SCREENING SHINGLES RECOMBINANT 2012 VACCINE (1 of 2) INFLUENZA VACCINE 01/09/2018 Results Not on filefrom Last 3 Months
--- OUTSIDE RECORDS SUMMARY | 2018-03-17 11:03 | XMS REPORT ---
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 Name Role Phone THOMAS JENNINGS Unavailable PROBLEMS Type Condition ICD9-CM Code YRA41-DQ Code Onset Dates Condition Status SNOMED Code Problem Other chronic pain G89.29 Active 66345388 Problem On home oxygen therapy Z99.81 Active 456991147567 Problem Mild chronic obstructive pulmonary disease J44.9 Active 312982734 Problem COPD (chronic obstructive pulmonary disease) with chronic bronchitis J44.9 Active 208669771 Problem History of illicit drug use Z87.898 Active 220564671 Problem COPD exacerbation J44.1 Active 877838128 Problem Neuropathy G62.9 Active 242255476 Problem Essential hypertension I10 Active 79039196 Problem 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 Active 78400400 Problem Major depressive disorder, recurrent episode, moderate F33.1 Active 674661585 Problem Impaired circulation I99.9 Active 33412965 Problem 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 Active 97787265 Problem Snoring R06.83 Active 68633205 Problem MRSA (methicillin resistant staph aureus) culture positive Z22.322 Active 010024367 Problem Fatigue R53.83 Active 51716469 Problem Varicose veins of both lower extremities I83.93 Active 31848509 Problem Dysthymic disorder F34.1 Active 91308974 Problem Upper respiratory tract infection, unspecified type J06.9 Active 10458519 Problem Panic disorder without agoraphobia F41.0 Active 52682904 Problem Mild persistent asthma without complication J45.30 Active 853404041 ALLERGIES No Information ENCOUNTERS Encounter Location Date Diagnosis [facility] [address] [facility] [id number] [address] May, [facility] [address] [facility] [id number] [address] Feb, [place] [id number] [place] [address] 26133- 9843 Feb, Skin fissures R23.4 ; Neuropathy G62.9 and Onychomycosis B35.1 [place] [address] [address]- 2261 Feb, Dysthymic disorder F34.1 [place] [address] [address]- 7733 Feb, [place] [address] [address]- 5026 Jan, [place] [address] 16596- 9441 Jan, Abrasion of right elbow, initial encounter S50.311A ; Abrasion, right knee, initial encounter S80.211A and Sprain of other ligament of right ankle, initial encounter S93.491A [place] [address] [address]- [address] Jan, [facility] [address] [address] Jan, Injury of left ankle, initial encounter S99.912A ; Fall down stairs, initial encounter W10.8XXA and BMI 45.0-49.9, adult Z68.42 [place] [address] [address]- 0057 Jan, COPD exacerbation J44.1 [place] [address] 79007- 9546 13 Jan, 2018 Dysfunction of both eustachian 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 [place] [address] [address]27- 7628 08 Jan, 2018 Bronchitis J40 and Acute suppurative otitis media of left ear without spontaneous rupture of tympanic membrane, recurrence not specified H66.002 [place] [address] [place] [address]- 78[address] Jan, [facility] [id number] [place] [address] 00734- 1703 Jan, Bronchitis J40 and BMI 40.0-44.9, adult Z68.41 [facility] [place] [id number] [place] [address] 41925- 8298 Jan, [facility] [place] [id number] [place] [address] 60444- 2551 Dec, Gastric pain R10.9 [facility] [id number] [place] [address] 20971- 4862 Dec, [facility] [id number] [place] [address] 39030- 4726 Dec, History of illicit drug use Z87.898 ; Neuropathy G62.9 ; COPD (chronic obstructive pulmonary disease) with chronic bronchitis J44.9 and Acute pain of right knee M25.561 [place] [id number] [place] [address] 82100- 5416 Nov, [facility] [place] [id number] [place] [address] 56421- 1815 Nov, Onychomycosis B35.1 and Contusion of left foot, subsequent encounter S90.32XD [facility] [facility] [id number] [place] [address] 05305- 0066 Nov, COPD exacerbation J44.1 [place] [id number] [place] [address] 16541- 6780 Sep, [place] [id number] [place] [address] 01088- 3862 Sep, Dysthymic disorder F34.1 ; Tobacco abuse Z72.0 ; Pain in right knee M25.561 ; Pain in left knee M25.562 ; Other chronic pain G89.29 and BMI 40.0-44.9, adult Z68.41 [place] [id number] [place] [address] 34632- 0060 Aug, Major depressive disorder, recurrent episode, moderate F33.1 and 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 [place] [address] 62814- 7842 14 Aug, 2017 Dysthymic disorder F34.1 ; Non-pressure chronic ulcer of left thigh, unspecified ulcer stage L97.129 ; Tobacco abuse Z72.0 ; Mild chronic obstructive pulmonary disease J44.9 and Forgetfulness R68.89 [place] [address] 16146- 5638 Aug, Onychomycosis B35.1 ; Fissure in skin of foot R23.4 and Foot callus L84 [facility] [address] [address] Jul, Right medial knee pain M25.561 ; Upper respiratory tract infection, unspecified type J06.9 and BMI 40.0-44.9, adult Z68.41 [facility] [address] [address] Jul, Nausea and vomiting, intractability of vomiting not specified, unspecified vomiting type R11.2 ; Left ear pain H92.02 and Gastric pain R10.[address] [address]- 4[address] Apr, Encounter for immunization Z23 [address] [address]- 9330 Apr, Onychomycosis B35.1 ; Xerosis of skin L85.3 ; Neuropathy G62.9 and 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 [place] [address] 90588- 0558 Jan, Onychomycosis B35.1 and Neuropathy G62.9 [place] [address] 60766- 6481 Dec, [facility] [address] [address] 5[address] Dec, [facility] [address] [place] [address] 5723 Nov, [facility] [address] [address] Aug, [facility] [address] [address] Aug, [facility] [address] [place] [address]- 6065 Jul, [facility] [address] [place] [address]- 6705 Jul, [facility] [address] [address]- 0110 Jul, Decubitus ulcer of left thigh, stage 2 L89.892 [facility] [address] [address]- 6739 17 Jul, 2016 Decubitus ulcer of left thigh, stage 2 L89.892 [facility] [address] [address]- 5276 17 Jul, 2016 [facility] [id number] [address]- 1916 15 Jul, 2016 Decubitus ulcer of left thigh, stage 2 L89.892 [facility] [id number] [address]- 4799 14 Jul, 2016 [facility] [address] [address]- 5609 13 Jul, 2016 Cellulitis of other specified site L03.818 ; Illicit drug use F19.90 and Decubitus ulcer of left thigh, stage 2 L89.892 [facility] [id number] [address]- 0960 08 Jul, 2016 [facility] [id number] [place] [address] 62343- 6026 Jul, Cellulitis of right breast N61.0 [facility] [id number] [place] [address] 90157- 5624 Jun, [facility] [id number] [place] [address] 06977- 8149 Jun, [facility] [address] 54157- 9272 Jun, Wheezing R06.2 and Arthralgia, unspecified joint M25.50 [place] [id number] [place] [address] 32745- 4891 May, [place] [id number] [place] [address] 26996- 0352 May, [place] [id number] [place] [address] 78640- 8455 May, [place] [id number] [place] [address] 22005- 7740 May, Shortness of breath R06.02 [place] [id number] [place] [address] 80635- 8199 May, Onychomycosis B35.1 and Fissure in skin of foot R23.4 [place] [id number] [place] [address] 23592- 6072 Apr, [facility] [id number] [place] [address] 75681 -4831 18 Apr, 2016 Dizziness R42 [place] [id number] [place] [address] 02736- 8567 14 Apr, 2016 Shortness of breath R06.02 ; Essential hypertension I10 ; Dizziness R42 and On home oxygen therapy Z99.81 [place] [id number] [place] [address] 27733- 8607 Apr, [facility] [address] [address]- 2070 Apr, [facility] [id number] [place] [address] 14466- 5962 Apr, [facility] [id number] [place] [address] 23917- 8428 Apr, [facility] [id number] [place] [address] 75995- 7096 Apr, [facility] [id number] [place] [address] 80283- 1933 Apr, [facility] [id number] [place] [address] 51506- 9702 Apr, [facility] [id number] [place] [address] 22483- 1996 Mar, Mild chronic obstructive pulmonary disease J44.9 [facility] [id number] [place] [address] 89980- 6484 Mar, [facility] [id number] [place] [address] 99478- 1671 Mar, Epigastric pain R10.13 ; Low back pain M54.5 ; Other chronic pain G89.29 and Breast cancer screening Z12.39 [facility] [id number] [place] [address] 86858- 7415 Mar, [facility] [address] [address]- 2293 Mar, [facility] [id number] [place] [address] 59849- 6211 Feb, [facility] [id number] [place] [address] 22789- 7012 Feb, [facility] [address] [address]- 6411 Feb, 2016 Fissure in skin of foot R23.4 and Onychomycosis B35.1 [place] [id number] [place] [address] 80838- 6749 Jan, 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 [place] [id number] [place] [address] 95360- 6563 Dec, 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 [place] [id number] [place] [address] 74838- 1471 Dec, Mild persistent asthma without complication J45.30 ; Dysthymic disorder F34.1 and Upper respiratory tract infection, unspecified type J06.9 [place] [id number] [place] [address] 78831- 7227 Nov, 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 [place] [id number] [place] [address] 64862- 3548 October, 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 [place] [id number] [place] [address] 89315- 3426 Sep, Panic disorder without agoraphobia F41.0 ; 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 and Dysthymic disorder F34.1 [place] [id number] [place] [address] 75696- 6555 Sep, Panic attacks F41.0 [place] [id number] [place] [address] 80760- 0378 Sep, [place] [id number] [place] [address] 85525- 5618 Sep, Panic disorder without agoraphobia F41.0 ; Varicose veins of both lower extremities I83.93 and Fatigue R53.83 [place] [id number] [place] [address] 86031- 0204 Sep, Fatigue R53.83 [place] [id number] [place] [address] 82849- 1757 Sep, [place] [id number] [place] [address] 69862- 4182 Aug, [place] [id number] [place] [address] 23818- 1840 Aug, [place] [id number] [place] [address] 97022- 7613 Aug, 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 [place] [id number] [place] [address] 18862- 7193 Aug, Panic disorder without agoraphobia F41.0 ; 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 and Dysthymic disorder F34.1 [place] [id number] [place] [address] 07897- 2506 Aug, Shortness of breath R06.02 ; Panic attacks F41.0 ; COPD ( chronic obstructive pulmonary disease) J44.9 ; Tobacco abuse Z72.0 ; Family history of diabetes mellitus Z83.3 and Weight gain R63.5 [place] [id number] [place] [address] 98731- 4992 Aug, [place] [id number] [place] [address] 76538- 3162 Jul, [place] [id number] [place] [address] 84851- 9357 Jun, Onychomycosis B35.1 ; Neuropathy G62.9 and Impaired circulation I99.9 [place] [id number] [place] [address] 90494- 7046 Mar, Fissure in skin of foot R23.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 [place] [id number] [place] [address] 22216- 0760 18 Feb, 2015 Family history of coronary arteriosclerosis V17.3 [place] [id number] [place] [address] 41644- 0223 Feb, Allergic rhinitis due to pollen 477.0 ; Unspecified breast screening V76.10 ; Anxiety 300.00 and Family history of coronary arteriosclerosis V17.3 [facility] [address] [address]- 0226 Jan, [facility] [id number] [address]- 7031 Dec, [facility] [id number] [place] [address] 20983- 5449 Dec, Onychomycosis 110.1 and Skin fissures 709.8 [facility] [id number] [place] [address] 21095- 8406 Sep, [facility] [id number] [place] [address] 54301- 2782 Sep, [facility] [id number] [place] [address] 01717- 3178 Aug, [facility] [address] [address]- 8208 Aug, [facility] [address] [address]- 1996 Jul, [facility] [address] [address]- 6977 Jul, [facility] [address] [address]- 2599 Jun, [facility] [address] 7949 Jun, [facility] [id number] [place] [address] 499657- 6244 Jun, [facility] [address] 9118 Jun, [facility] [address] [place] [address] 57682- 7694 Jun, [facility] [place] [facility] [address] [id number] [place] [address]- 6788 May, [facility] [place] [facility] [address] [id number] [place] [address]- 9463 May, [facility] [place] [facility] [address] [facility] [id number] [place] [address]- 8339 May, [facility] [place] [facility] [address] [id number] [place] [address]- 5190 May, [facility] [place] [facility] [address] [id number] [place] [address]- 4342 May, [facility] [place] [facility] [address] [id number] [place] [address]- 7719 May, [facility] [place] [facility] [address] [id number] [place] [address]- 3379 May, [facility] [place] [facility] [address] [id number] [place] [address]- 8087 May, [facility] [place] [facility] [address] [id number] [place] [address]- 4691 Apr, [facility] [place] [facility] [address] [id number] [place] [address]- 2032 Apr, [facility] [place] [facility] [address] [id number] [address]- 7904 Apr, [facility] [place] [facility] [address] [id number] [address]- 7674 Apr, [facility] [place] [facility] [address] [id number] [place] [address]- 4780 Apr, [facility] [place] [facility] [address] [id number] [place] [address]- 5745 Apr, [facility] [place] [facility] [address] [facility] [id number] [place] [address]- 7808 Apr, [facility] [place] [facility] [address] [id number] [place] [address]- 5640 Apr, [facility] [place] [facility] [address] [id number] [place] [address]- 4139 Apr, [facility] [place] [facility] [address] [id number] [place] [address]- 4320 Apr, [facility] [place] [facility] [address] [id number] [place] [address]- 4934 Mar, [facility] [place] [facility] [address] [id number] [place] [address]- 0588 Mar, [facility] [place] [facility] [address] [id number] [place] [address]- 5253 Mar, [facility] [place] [facility] [address] [id number] [place] [address]- 0089 Mar, [facility] [place] [facility] [address] [id number] [place] [address]- 0778 Mar, [facility] [place] [facility] [address] [id number] [place] [address]- 8042 Mar, [facility] [place] [facility] [address] [id number] [place] [address]- 1085 Mar, [facility] [place] [facility] [address] [id number] [place] [address]- 4996 Mar, [facility] [place] [facility] [address] [id number] [place] [address]- 0998 24 Mar, 2014 [facility] [place] [facility] [address] [id number] [place] [address]- 5693 Mar, [facility] [place] [facility] [address] [id number] [place] [address]- 8230 Mar, [facility] [place] [facility] [address] [id number] [place] [address]- 7523 Mar, [facility] [place] [facility] [address] [id number] [place] [address]- 7044 Mar, [facility] [place] [facility] [address] [id number] [place] [address]- 9367 Mar, 2013 [facility] [place] [facility] [address] [id number] [place] [address]- 6156 22 Mar, 2014 [facility] [place] [facility] [address] [id number] [place] [address]- 2905 20 Mar, 2014 [facility] [place] [facility] [address] [id number] [place] [address]- 2391 20 Mar, 2014 [facility] [place] [facility] [address] [id number] [place] [address]- 1511 16 Mar, 2014 [facility] [place] [facility] [address] [id number] [place] [address]- 5063 16 Mar, 2014 [facility] [place] [facility] [address] [id number] [place] [address]- 4845 15 Mar, 2014 [facility] [place] [facility] [address] [id number] [place] [address]- 4346 14 Mar, 2014 [facility] [place] [facility] [address] [id number] [place] [address]- 5521 14 Mar, 2014 [facility] [place] [facility] [address] [id number] [place] [address]- 0243 14 Mar, 2014 [facility] [place] [facility] [address] [id number] [place] [address]- 9065 14 Mar, 2014 [facility] [place] [facility] [address] [id number] [address]- 1314 Mar, [facility] [place] [facility] [address] [id number] [place] [address]- 8750 Mar, [facility] [place] [facility] [address] [id number] [place] [address]- 1562 Mar, [facility] [place] [facility] [address] [id number] [place] [address]- 9928 Mar, [facility] [place] [facility] [address] [id number] [address]- 5179 30 Feb, 2013 [facility] [place] [facility] [address] [id number] [place] [address] 2546 30 Feb, 2013 [facility] [place] [facility] [address] [id number] [place] [address] 2546 30 Feb, 2013 [facility] [place] [facility] [address] [id number] [place] [address] 2549 30 Feb, 2013 [facility] [place] [facility] [address] [id number] [place] [address] 2545 Feb, 2013 [facility] [place] [facility] [address] [id number] [place] [address]- 9854 Feb, 2013 [facility] [place] [facility] [address] [id number] [place] [address]- 2031 Feb, 2013 [facility] [place] [facility] [address] [id number] [place] [address]- 3885 Feb, 2013 [facility] [place] [facility] [address] [id number] [place] [address]- 9050 Feb, 2013 [facility] [place] [facility] [address] [id number] [place] [address]- 1587 Feb, 2013 [facility] [place] [facility] [address] [id number] [place] [address]- 2262 Feb, 2013 [facility] [place] [facility] [address] [id number] [place] [address] Feb, 2013 [facility] [place] [facility] [address] [id number] [place] [address] Jan, [facility] [place] [facility] [address] [id number] [place] [address] Jan, [facility] [place] [facility] [address] [id number] [place] [address] Jan, [facility] [place] [facility] [address] [id number] [place] [address] Jan, [facility] [place] [facility] [address] [id number] [place] [address] Jan, [facility] [place] [facility] [address] [id number] [place] [address] Jan, [facility] [place] [facility] [address] [id number] [place] [address] Jan, [facility] [place] [facility] [address] [id number] [place] [address] Jan, [facility] [place] [facility] [address] [id number] [place] [address] Jan, [facility] [place] [facility] [address] [id number] [place] [address] Jan, [facility] [place] [facility] [address] [id number] [place] [address] Jan, [facility] [place] [facility] [address] [id number] [place] [address] Jan, [facility] [place] [facility] [address] [id number] [place] [address] Jan, [facility] [place] [facility] [address] [id number] [place] [address] Dec, [facility] [place] [facility] [address] [id number] [place] [address] Dec, [facility] [place] [facility] [address] [id number] [place] [address] Dec, [facility] [place] [facility] [address] [id number] [place] [address] Dec, [facility] [place] [facility] [address] [id number] [place] [address] Dec, [facility] [place] [facility] [address] [id number] [place] [address] Dec, [facility] [place] [facility] [address] [id number] [place] [address] Dec, [facility] [place] [facility] [address] [id number] [place] [address] Dec, 2013 [facility] [place] [facility] [address] [id number] [place] [address] Dec, [facility] [place] [facility] [address] [id number] [place] [address] Dec, 2013 [facility] [place] [facility] [address] [id number] [place] [address] Dec, 2013 [facility] [place] [facility] [address] [id number] [place] [address] Dec, [facility] [place] [facility] [address] [id number] [place] [address] Dec, [facility] [place] [facility] [address] [id number] [place] [address] Dec, [facility] [place] [facility] [address] [id number] [place] [address] Dec, [facility] [place] [facility] [address] [id number] [place] [address] Dec, [facility] [place] [facility] [address] [id number] [place] [address] Dec, [facility] [place] [facility] [address] [id number] [place] [address] Dec, [facility] [place] [facility] [address] [id number] [place] [address] Nov, [facility] [place] [facility] [address] [id number] [place] [address] Nov, [facility] [place] [facility] [address] [id number] [place] [address] Nov, [facility] [place] [facility] [address] [id number] [place] [address] Nov, [facility] [place] [facility] [address] [id number] [place] [address] Nov, [facility] [place] [facility] [address] [id number] [place] [address] Nov, [facility] [place] [facility] [address] [id number] [place] [address] Nov, [facility] [place] [facility] [address] [id number] [place] [address] Nov, [facility] [place] [facility] [address] [id number] [place] [address] 2467 Nov, [facility] [place] [facility] [address] [id number] [place] [address] 3294 Nov, [facility] [place] [facility] [address] [id number] [place] [address] 9825 Nov, [facility] [place] [facility] [address] [id number] [place] [address] 3614 Nov, [facility] [place] [facility] [address] [id number] [place] [address]113 Nov, [facility] [place] [facility] [address] [id number] [place] [address] 7795 Nov, [facility] [place] [facility] [address] [id number] [place] [address] 8841 Nov, [facility] [place] [facility] [address] [id number] [place] [address] 7880 Nov, [facility] [place] [facility] [address] [id number] [address] Nov, [facility] [place] [facility] [address] [id number] [place] [address]- 9643 Nov, [facility] [place] [facility] [address] [id number] [place] [address]- 2229 Nov, [facility] [place] [facility] [address] [id number] [place] [address]- 0334 Nov, [facility] [place] [facility] [address] [id number] [place] [address]- 4718 October, [facility] [place] [facility] [address] [id number] [place] [address]- 7805 October, [facility] [place] [facility] [address] [id number] [place] [address]- 9709 October, [facility] [place] [facility] [address] [id number] [place] [address]- 0407 October, [facility] [place] [facility] [address] [id number] [place] [address] 2796 Sep, [facility] [place] [facility] [address] [id number] [place] [address]- 3542 Sep, [facility] [place] [facility] [address] [id number] [place] [address] 1608 Sep, [facility] [place] [facility] [address] [id number] [place] [address]- 4312 Sep, [facility] [place] [facility] [address] [id number] [place] [address]- 7299 Sep, [facility] [place] [facility] [address] [id number] [place] [address]- 2889 Sep, [facility] [place] [facility] [address] [id number] [place] [address]- 5473 Sep, [facility] [place] [facility] [address] [id number] [place] [address]- 1850 Sep, [facility] [place] [facility] [address] [id number] [place] [address]- 8683 Sep, [facility] [place] [facility] [address] [id number] [place] [address]- 2275 Aug, [facility] [place] [facility] [address] [id number] [place] [address]- 9642 Aug, [facility] [place] [facility] [address] [id number] [place] [address]- 5453 Aug, [facility] [place] [facility] [address] [id number] [place] [address]- 1731 Aug, [facility] [place] [facility] [address] [id number] [place] [address]- 0603 Aug, [facility] [place] [facility] [address] [id number] [place] [address] Aug, [facility] [place] [facility] [address] [id number] [place] [address]- 8622 Aug, [facility] [place] [facility] [address] [id number] [place] [address]- 1582 Aug, [facility] [place] [facility] [address] [id number] [place] [address]- 4578 Jul, [facility] [place] [facility] [address] [id number] [place] [address] 1912 Jul, [facility] [place] [facility] [address] [id number] [place] [address]- 9927 Jun, [facility] [place] [facility] [address] [id number] [place] [address]- 6272 Jun, [facility] [place] [facility] [address] [id number] [place] [address]- 0833 Jun, [facility] [place] [facility] [address] [id number] [place] [address]- 3807 Jun, [facility] [place] [facility] [address] [id number] [place] [address]- 4202 Jun, [facility] [place] [facility] [address] [id number] [place] [address]- 3626 Jun, [facility] [place] [facility] [address] [id number] [place] [address]- 7849 Jun, [facility] [place] [facility] [address] [id number] [place] [address]- 0309 Jun, [facility] [place] [facility] [address] [id number] [place] [address]- 9613 15 Jun, 2013 [facility] [address] [id number] [place] [address] 3214 14 Jun, 2013 [facility] [address] [id number] [place] [address]- 7939 Jun, [facility] [address] [id number] [place] [address]- 7680 Jun, [facility] [address] [id number] [place] [address]- 3329 31 May, 2013 [facility] [address] [id number] [place] [address]- 6588 May, [facility] [address] [id number] [place] [address]- 5598 May, [facility] [address] [id number] [place] [address]- 6409 31 May, 2013 [facility] [address] [id number] [place] [address]- 3227 31 May, 2013 [facility] [address] [id number] [place] [address]- 8403 31 May, 2013 [facility] [address] [id number] [place] [address]- 5914 26 May, 2013 [facility] [address] [id number] [place] [address] 2549 23 May, 2013 [facility] [address] [id number] [place] [address] 2548 23 May, 2013 [facility] [address] [id number] [place] [address]- 9094 16 May, 2013 [facility] [address] [id number] [place] [address]- 6069 16 May, 2013 [facility] [address] [id number] [place] [address]- 3184 May, [facility] [place] [facility] [address] [id number] [place] [address]- 2336 May, [facility] [place] [facility] [address] [id number] [place] [address]- 2029 Apr, [facility] [place] [facility] [address] [id number] [place] [address]- 8487 Apr, [facility] [place] [facility] [address] [id number] [place] [address]- 4320 Mar, [facility] [place] [facility] [address] [id number] [place] [address]- 4473 Mar, [facility] [place] [facility] [address] [id number] [place] [address]- 6136 24 Feb, 2013 [facility] [place] [facility] [address] [id number] [place] [address]- 6667 Feb, [facility] [place] [facility] [address] [id number] [place] [address]- 7381 Feb, [facility] [place] [facility] [address] [id number] [place] [address]- 4042 Feb, [facility] [place] [facility] [address] [id number] [place] [address]- 0697 Jan, [facility] [place] [facility] [address] [id number] [place] [address]- 3322 Jan, [facility] [place] [facility] [address] [id number] [place] [address]- 1411 Jan, [facility] [place] [facility] [address] [id number] [place] [address]- 4788 Jan, [facility] [place] [facility] [address] [id number] [place] [address]- 6047 Jan, [facility] [place] [facility] [address] [id number] [place] [address]- 5563 Jan, [facility] [place] [facility] [address] [id number] [place] [address]- 7391 Dec, [facility] [address] [id number] [place] [address]- 0979 Dec, [facility] [place] [facility] [address] [id number] [place] [address]- 0626 Dec, [facility] [address] [id number] [place] [address]- 9573 Dec, [facility] [address] [id number] [place] [address]- 4414 Nov, [facility] [address] [id number] [place] [address]- 5520 October, [facility] [address] [id number] [place] [address]- 2208 October, [facility] [address] [id number] [place] [address]- 4374 October, [facility] [address] [id number] [place] [address]- 8226 Sep, [facility] [address] [id number] [place] [address]- 6278 Sep, [facility] [place] [facility] [address] [id number] [place] [address]- 4818 Jun, [facility] [address] [id number] [place] [address]- 0531 Jun, [facility] [place] [facility] [address] [id number] [place] [address]- 7294 Jun, [facility] [place] [facility] [address] [id number] [place] [address]- 5085 Apr, [facility] [place] [facility] [address] [id number] [place] [address]- 1547 Apr, [facility] [place] [facility] [address] [id number] [place] [address]- 7981 Apr, [facility] [place] [facility] [address] [id number] [place] [address]- 0113 Apr, [facility] [place] [facility] [address] [id number] [place] [address]- 2792 Mar, [facility] [place] [facility] [address] [id number] [place] [address]- 5286 Mar, [facility] [place] [facility] [address] [id number] [place] [address]- 6254 Mar, [facility] [place] [facility] [address] [id number] [place] [address]- 9354 Mar, [facility] [place] [facility] [address] [id number] [place] [address]- 6751 Feb, [facility] [place] [facility] [address] [id number] [place] [address]- 4112 Feb, [facility] [place] [facility] [address] [id number] [place] [address]- 8082 Feb, [facility] [place] [facility] [address] [id number] [place] [address]- 9926 Jan, [facility] [place] [facility] [address] [id number] [place] [address]- 4281 Jan, [facility] [place] [facility] [address] [id number] [place] [address]- 1707 Jan, [facility] [place] [facility] [address] [id number] [place] [address]- 9655 Jan, [facility] [place] [facility] [address] [id number] [place] [address]- 7854 Dec, [facility] [place] [facility] [address] [id number] [place] [address]- 5426 Dec, [facility] [place] [facility] [address] [id number] [place] [address]- 2546 Nov, [facility] [place] [facility] [address] [id number] [place] [address]- 2126 Nov, [facility] [place] [facility] [address] [id number] [place] [address]- 7176 October, [facility] [place] [facility] [address] [id number] [place] [address]- 3897 October, [facility] [place] [facility] [address] [id number] [place] [address]- 7916 October, [facility] [place] [facility] [address] [id number] [place] [address]- 9693 Sep, [facility] [place] [facility] [address] [id number] [place] [address]- 0436 Sep, [facility] [place] [facility] [address] [id number] [place] [address]- 6761 Sep, [facility] [place] [facility] [address] [facility] [id number] [place] [address]- 5358 Aug, [facility] [place] [facility] [address] [id number] [place] [address]- 6199 Aug, [facility] [place] [facility] [address] [id number] [place] [address]- 2136 Aug, [facility] [place] [facility] [address] [facility] [id number] [place] [address]- 0430 Aug, [facility] [place] [facility] [address] [id number] [place] [address]- 6492 Aug, [facility] [place] [facility] [address] [id number] [place] [address]- 4578 Jul, [facility] [place] [facility] [address] [id number] [place] [address]- 6848 16 Jul, 2011 [facility] [place] [facility] [address] [id number] [place] [address]- 1345 Jul, [facility] [place] [facility] [address] [facility] [id number] [place] [address]- 5756 Jul, [facility] [place] [facility] [address] [id number] [place] [address]- 4225 07 Jul, 2011 [facility] [address] [id number] [place] [address]- 2296 Jul, [facility] [place] [facility] [address] [id number] [place] [address]- 2546 Jul, [facility] [place] [facility] [address] [id number] [place] [address]- 1736 Jul, [facility] [place] [facility] [address] [id number] [place] [address]- 3782 Jun, [facility] [place] [facility] [address] [id number] [place] [address]- 5607 Jun, [facility] [place] [facility] [address] [facility] [id number] [place] 4427 May, [facility] [place] [facility] [address] [id number] [place] [address]- 2251 May, [facility] [place] [facility] [address] [id number] [place] [address]- 8001 May, [facility] [place] [facility] [address] [facility] [id number] [place] [address]137 May, [facility] [place] [facility] [address] [facility] [id number] [place] [address]- 8495 Apr, [facility] [place] [facility] [address] [id number] [place] [address]- 2954 Apr, [facility] [place] [facility] [address] [id number] [place] [address]- 6444 Apr, [facility] [place] [facility] [address] [facility] [id number] [place] [address]- 4416 Mar, [facility] [place] [facility] [address] [id number] [place] [address]- 9516 Mar, [facility] [place] [facility] [address] [facility] [id number] [place] [address]- 4692 18 Mar, 2011 [facility] [place] [facility] [address] [id number] [place] [address]- 5077 2011 [facility] [place] [facility] [address] [id number] [place] [address]- 8036 Dec, [facility] [place] [facility] [address] [id number] [place] [address]- 7426 October, [facility] [place] [facility] [address] [id number] [place] [address]- 1761 28 May, 2010 [facility] [place] [facility] [address] [id number] [place] [address]- 4978 13 May, 2010 [facility] [place] [facility] [address] [id number] [place] [address]- 3851 13 May, 2010 [facility] [place] [facility] [address] [id number] [place] [address]- 5776 May, [facility] [place] [facility] [address] [id number] [place] [address]- 1287 Mar, [facility] [place] [facility] [address] [id number] [place] [address]- 8740 Mar, [facility] [place] [facility] [address] [id number] [place] [address]- 4200 31 May, 2009 [facility] [place] [facility] [address] [id number] [place] [address]- 3645 30 May, 2009 [facility] [place] [facility] [address] [id number] [place] [address]- 7323 08 May, 2009 [facility] [place] [facility] [address] [id number] [place] [address]- 0566 May, [facility] [place] [facility] [address] [id number] [place] [address]- 9937 Apr, [facility] [place] [facility] [address] [id number] [place] [address]- 1750 Apr, [facility] [place] [facility] [address] [facility] [id number] [place] [address] [address] October, IMMUNIZATIONS No Known Immunizations SOCIAL HISTORY Never Assessed REASON FOR VISIT Refill request PLAN OF CARE VITAL SIGNS MEDICATIONS Medication Instructions Dosage Frequency Start Date End Date Duration Status Fluoxetine HCl 20 mg Orally Once a day 1 capsule in the morning 24h Aug 90 days Active RESULTS No Results PROCEDURES [...]
--- OUTSIDE RECORDS SUMMARY | 2018-03-17 11:04 | XMS REPORT ---
Author Author THOMAS JENNINGS Organization [facility] Address [address] [place] [address] Care Team Providers Care Practical Nurse Name Role Phone THOMAS JENNINGS Unavailable PROBLEMS Type Condition ICD9-CM Code IPY68-TF Code Onset Dates Condition Status SNOMED Code Problem Other chronic pain G89.29 Active 91787275 Problem On home oxygen therapy Z99.81 Active 274719411328 Problem Mild chronic obstructive pulmonary disease J44.9 Active 359314409 Problem COPD (chronic obstructive pulmonary disease) with chronic bronchitis J44.9 Active 004937493 Problem History of illicit drug use Z87.898 Active 792599290 Problem COPD exacerbation J44.1 Active 561536381 Problem Neuropathy G62.9 Active 969355294 Problem Essential hypertension I10 Active 23579004 Problem 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 Active 27108451 Problem Major depressive disorder, recurrent episode, moderate F33.1 Active 758388983 Problem Impaired circulation I99.9 Active 57476954 Problem 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 Active 67229466 Problem Snoring R06.83 Active 27833793 Problem MRSA (methicillin resistant staph aureus) culture positive Z22.322 Active 739255173 Problem Fatigue R53.83 Active 83850652 Problem Varicose veins of both lower extremities I83.93 Active 66813594 Problem Dysthymic disorder F34.1 Active 71570164 Problem Upper respiratory tract infection, unspecified type J06.9 Active 04189060 Problem Panic disorder without agoraphobia F41.0 Active 62762526 Problem Mild persistent asthma without complication J45.30 Active 027935327 ALLERGIES No Information ENCOUNTERS Encounter Location Date Diagnosis [facility] [address] [facility] [id number] [address] May, [facility] [address] [facility] [id number] [address] Feb, [place] [id number] [place] [address] 14206- 4878 Feb, Skin fissures R23.4 ; Neuropathy G62.9 and Onychomycosis B35.1 [place] [address] [address]- 4539 Feb, Dysthymic disorder F34.1 [place] [address] 94479- 0228 Feb, [place] [address] 76981- 9023 Jan, [place] [address] 80742- 7564 Jan, Abrasion of right elbow, initial encounter S50.311A ; Abrasion, right knee, initial encounter S80.211A and Sprain of other ligament of right ankle, initial encounter S93.491A [place] [address] [address]- [address] Jan, [facility] [address] [address] Jan, Injury of left ankle, initial encounter S99.912A ; Fall down stairs, initial encounter W10.8XXA and BMI 45.0-49.9, adult Z68.42 [place] [address] 61374- 2243 Jan, COPD exacerbation J44.1 [place] [address] 49843- 1412 13 Jan, 2018 Dysfunction of both eustachian 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 [place] [address] 85681- 2373 08 Jan, 2018 Bronchitis J40 and Acute suppurative otitis media of left ear without spontaneous rupture of tympanic membrane, recurrence not specified H66.002 [place] [address] [place] [address]- 5541 Jan, [place] [id number] [place] [address] 84073- 3359 Jan, Bronchitis J40 and BMI 40.0-44.9, adult Z68.41 [place] [id number] [place] [address] 54206- 7611 Jan, [place] [id number] [place] [address] 74023- 6413 Dec, Gastric pain R10.9 [place] [id number] [place] [address] 54693- 1108 Dec, [place] [id number] [place] [address] 74579- 1049 Dec, History of illicit drug use Z87.898 ; Neuropathy G62.9 ; COPD (chronic obstructive pulmonary disease) with chronic bronchitis J44.9 and Acute pain of right knee M25.561 [place] [id number] [place] [address] 00111- 4508 Nov, [place] [id number] [place] [address] 87949- 0413 Nov, Onychomycosis B35.1 and Contusion of left foot, subsequent encounter S90.32XD [facility] [id number] [place] [address] 71194- 4434 Nov, COPD exacerbation J44.1 [place] [id number] [place] [address] 31221- 6278 Sep, [place] [id number] [place] [address] 05468- 1449 Sep, Dysthymic disorder F34.1 ; Tobacco abuse Z72.0 ; Pain in right knee M25.561 ; Pain in left knee M25.562 ; Other chronic pain G89.29 and BMI 40.0-44.9, adult Z68.41 [place] [id number] [place] [address] 72343- 9025 Aug, Major depressive disorder, recurrent episode, moderate F33.1 and 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 [place] [address] 68986- 3467 14 Aug, 2017 Dysthymic disorder F34.1 ; Non-pressure chronic ulcer of left thigh, unspecified ulcer stage L97.129 ; Tobacco abuse Z72.0 ; Mild chronic obstructive pulmonary disease J44.9 and Forgetfulness R68.89 [place] [address] 51292- 5542 Aug, Onychomycosis B35.1 ; Fissure in skin of foot R23.4 and Foot callus L84 [facility] [address] [address] Jul, Right medial knee pain M25.561 ; Upper respiratory tract infection, unspecified type J06.9 and BMI 40.0-44.9, adult Z68.41 [facility] [address] [address] -[address] Jul, Nausea and vomiting, intractability of vomiting not specified, unspecified vomiting type R11.2 ; Left ear pain H92.02 and Gastric pain R10.[address] [address]- 2651 Apr, Encounter for immunization Z23 [address] [address]- 0050 Apr, Onychomycosis B35.1 ; Xerosis of skin L85.3 ; Neuropathy G62.9 and 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 [place] [address] 76784- 8201 Jan, Onychomycosis B35.1 and Neuropathy G62.9 [place] [address] 73196- 1153 Dec, [facility] [address] [address] 3559 Dec, [facility] [address] [place] [address]- 3306 Nov, [facility] [address] 4986 Aug, [facility] [address] 1836 Aug, [facility] [address] [place] [address]- 7223 Jul, [facility] [address] [place] [address]- 6670 Jul, [facility] [address], [place] [address]- 1371 Jul, Decubitus ulcer of left thigh, stage 2 L89.892 [facility] [address], [place] [address]- 9885 17 Jul, 2016 Decubitus ulcer of left thigh, stage 2 L89.892 [facility] [address], [place] [address]- 1602 17 Jul, 2016 [facility] [id number] [address]- 2560 15 Jul, 2016 Decubitus ulcer of left thigh, stage 2 L89.892 [facility] [id number] [address]- 6725 14 Jul, 2016 [facility] [address], [place] [address]- 6905 13 Jul, 2016 Cellulitis of other specified site L03.818 ; Illicit drug use F19.90 and Decubitus ulcer of left thigh, stage 2 L89.892 [facility] [id number] [address]- 8376 08 Jul, 2016 [facility] [id number] [place] [address] 04829- 3271 Jul, Cellulitis of right breast N61.0 [facility] [id number] [place] [address] 18578- 9823 Jun, [facility] [id number] [place] [address] 00959- 3887 Jun, [facility] [address] 15874- 1215 Jun, Wheezing R06.2 and Arthralgia, unspecified joint M25.50 [place] [id number] [place] [address] 61716- 8642 May, [place] [id number] [place] [address] 08915- 6621 May, [place] [id number] [place] [address] 65426- 5911 May, [place] [id number] [place] [address] 96565- 8940 May, Shortness of breath R06.02 [place] [id number] [place] [address] 12176- 9707 May, Onychomycosis B35.1 and Fissure in skin of foot R23.4 [place] [id number] [place] [address] 32414- 0960 Apr, [facility] [id number] [place] [address] 45833 -3650 18 Apr, 2016 Dizziness R42 [place] [id number] [place] [address] 70634- 5192 14 Apr, 2016 Shortness of breath R06.02 ; Essential hypertension I10 ; Dizziness R42 and On home oxygen therapy Z99.81 [place] [id number] [place] [address] 37477- 4491 Apr, [facility] [address], [place] [address]- 6095 Apr, [facility] [id number] [place] [address] 84780- 8057 Apr, [facility] [id number] [place] [address] 19543- 3077 Apr, [facility] [id number] [place] [address] 78252- 6165 Apr, [facility] [id number] [place] [address] 03321- 4203 Apr, [facility] [id number] [place] [address] 34145- 9213 Apr, [facility] [id number] [place] [address] 78545- 1495 Mar, Mild chronic obstructive pulmonary disease J44.9 [facility] [id number] [place] [address] 85613- 4094 Mar, [facility] [id number] [place] [address] 77060- 1852 Mar, Epigastric pain R10.13 ; Low back pain M54.5 ; Other chronic pain G89.29 and Breast cancer screening Z12.39 [facility] [address] [place] [address] 90909- 5709 Mar, [facility] [address], [place] [address]- 6754 Mar, [facility] [id number] [place] [address] 49052- 6135 Feb, [facility] [id number] [place] [address] 89119- 2791 Feb, [facility] [address], [place] [address]- 0047 Feb, 2016 Fissure in skin of foot R23.4 and Onychomycosis B35.1 [place] [id number] [place] [address] 86543- 8968 Jan, 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 [place] [id number] [place] [address] 05768- 4431 Dec, 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 [place] [id number] [place] [address] 59904- 3721 Dec, Mild persistent asthma without complication J45.30 ; Dysthymic disorder F34.1 and Upper respiratory tract infection, unspecified type J06.9 [place] [id number] [place] [address] 84896- 6406 Nov, 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 [place] [id number] [place] [address] 82240- 4302 October, 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 [place] [id number] [place] [address] 21925- 1498 Sep, Panic disorder without agoraphobia F41.0 ; 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 and Dysthymic disorder F34.1 [place] [id number] [place] [address] 57898- 4652 Sep, Panic attacks F41.0 [place] [id number] [place] [address] 56490- 6671 Sep, [place] [id number] [place] [address] 72224- 1068 Sep, Panic disorder without agoraphobia F41.0 ; Varicose veins of both lower extremities I83.93 and Fatigue R53.83 [place] [id number] [place] [address] 23645- 7475 Sep, Fatigue R53.83 [place] [id number] [place] [address] 10582- 4209 Sep, [place] [address] [place] [address] 38429- 5807 Aug, [place] [id number] [place] [address] 64403- 1001 Aug, [place] [id number] [place] [address] 36008- 9762 Aug, 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 [place] [id number] [place] [address] 14488- 8930 Aug, Panic disorder without agoraphobia F41.0 ; 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 and Dysthymic disorder F34.1 [place] [id number] [place] [address] 58257- 8696 Aug, Shortness of breath R06.02 ; Panic attacks F41.0 ; COPD ( chronic obstructive pulmonary disease) J44.9 ; Tobacco abuse Z72.0 ; Family history of diabetes mellitus Z83.3 and Weight gain R63.5 [place] [id number] [place] [address] 96284- 8145 Aug, [place] [id number] [place] [address] 23204- 9993 Jul, [place] [id number] [place] [address] 58456- 6423 Jun, Onychomycosis B35.1 ; Neuropathy G62.9 and Impaired circulation I99.9 [place] [id number] [place] [address] 56119- 6243 Mar, Fissure in skin of foot R23.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 [place] [address] [place] [address] 12601- 5613 18 Feb, 2015 Family history of coronary arteriosclerosis V17.3 [place] [id number] [place] [address] 93733- 5679 Feb, Allergic rhinitis due to pollen 477.0 ; Unspecified breast screening V76.10 ; Anxiety 300.00 and Family history of coronary arteriosclerosis V17.3 [facility] [address], [place] [address]- 4386 Jan, [facility] [id number] [address]- 6603 Dec, [facility] [id number] [place] [address] 32231- 9859 Dec, Onychomycosis 110.1 and Skin fissures 709.8 [facility] [id number] [place] [address] 25034- 7346 Sep, [facility] [id number] [place] [address] 52511- 4833 Sep, [facility] [id number] [place] [address] 17479- 3099 Aug, [facility] [address], [place] [address]- 4796 Aug, [facility] [address], [place] [address]- 9906 Jul, [facility] [address], [place] [address]- 1030 Jul, [facility] [address], [place] [address]- 6033 Jun, [facility] [address] 0305 Jun, [facility] [id number] [place] [address] 282934- 7519 Jun, [facility] [address]- 7569 Jun, [facility] [address] [place] [address] 21100- 4401 Jun, [facility] [place] [facility] [address] [id number] [place] [address]- 9469 May, [facility] [place] [facility] [address] [id number] [place] [address]- 5276 May, [facility] [place] [facility] [address] [facility] [id number] [place] [address]- 0259 May, [facility] [place] [facility] [address] [id number] [place] [address]- 5856 May, [facility] [place] [facility] [address] [id number] [place] [address]- 5262 May, [facility] [place] [facility] [address] [id number] [place] [address]- 1337 May, [facility] [place] [facility] [address] [id number] [place] [address]- 3535 May, [facility] [place] [facility] [address] [id number] [place] [address]- 5236 May, [facility] [place] [facility] [address] [id number] [place] [address]- 4700 Apr, [facility] [place] [facility] [address] [id number] [place] [address]- 0135 Apr, [facility] [place] [facility] [address] [id number] [address]- 8996 Apr, [facility] [place] [facility] [address] [id number], [place] [address]- 1917 Apr, [facility] [place] [facility] [address] [id number] [place] [address]- 7896 Apr, [facility] [place] [facility] [address] [id number], [place] [address]- 1447 Apr, [facility] [place] [facility] [address] [facility] [id number] [place] [address]- 5580 Apr, [facility] [place] [facility] [address] [id number] [place] [address]- 4124 Apr, [facility] [place] [facility] [address] [id number] [place] [address]- 8561 Apr, [facility] [place] [facility] [address] [id number] [place] [address]- 5481 Apr, [facility] [place] [facility] [address] [id number] [place] [address]- 7391 Mar, [facility] [place] [facility] [address] [id number] [place] [address]- 5615 Mar, [facility] [place] [facility] [address] [id number] [place] [address]- 3892 Mar, [facility] [place] [facility] [address] [id number] [place] [address]- 8361 Mar, [facility] [place] [facility] [address] [id number] [place] [address]- 0635 Mar, [facility] [place] [facility] [address] [id number] [place] [address]- 7840 Mar, [facility] [place] [facility] [address] [id number] [place] [address]- 3330 Mar, [facility] [place] [facility] [address] [id number] [place] [address]- 5657 Mar, [facility] [place] [facility] [address] [id number] [place] [address]- 5397 24 Mar, 2014 [facility] [place] [facility] [address] [id number] [place] [address]- 2591 Mar, [facility] [place] [facility] [address] [id number] [place] [address]- 7102 Mar, [facility] [place] [facility] [address] [id number] [place] [address]- 4800 Mar, [facility] [place] [facility] [address] [id number] [place] [address]- 2591 Mar, [facility] [place] [facility] [address] [id number] [place] [address]- 2059 Mar, 2013 [facility] [place] [facility] [address] [id number] [place] [address]- 5133 22 Mar, 2014 [facility] [place] [facility] [address] [id number] [place] [address]- 5785 20 Mar, 2014 [facility] [place] [facility] [address] [id number] [place] [address]- 9218 20 Mar, 2014 [facility] [place] [facility] [address] [id number] [place] [address]- 4123 16 Mar, 2014 [facility] [place] [facility] [address] [id number] [place] [address]- 5973 16 Mar, 2014 [facility] [place] [facility] [address] [id number] [place] [address]- 9490 15 Mar, 2014 [facility] [place] [facility] [address] [id number] [place] [address]- 5128 14 Mar, 2014 [facility] [place] [facility] [address] [id number] [place] [address]- 2257 14 Mar, 2014 [facility] [place] [facility] [address] [id number] [place] [address]- 8279 14 Mar, 2014 [facility] [place] [facility] [address] [id number] [place] [address]- 5246 14 Mar, 2014 [facility] [place] [facility] [address] [id number], [place] [address]- 8781 Mar, [facility] [place] [facility] [address] [id number] [place] [address]- 5563 Mar, [facility] [place] [facility] [address] [id number] [place] [address]- 0209 Mar, [facility] [place] [facility] [address] [id number] [place] [address]- 9731 Mar, [facility] [place] [facility] [address] [id number], [place] [address]- 7064 30 Feb, 2013 [facility] [place] [facility] [address] [id number] [place] [address] 2546 30 Feb, 2013 [facility] [place] [facility] [address] [id number] [place] [address] 2546 30 Feb, 2013 [facility] [place] [facility] [address] [id number] [place] [address] 2540 30 Feb, 2013 [facility] [place] [facility] [address] [id number] [place] [address] 2540 Feb, 2013 [facility] [place] [facility] [address] [id number] [place] [address]- 2207 Feb, 2013 [facility] [place] [facility] [address] [id number] [place] [address]- 6217 Feb, 2013 [facility] [place] [facility] [address] [id number] [place] [address]- 6625 Feb, 2013 [facility] [place] [facility] [address] [id number] [place] [address] Feb, 2013 [facility] [place] [facility] [address] [id number] [place] [address] Feb, 2013 [facility] [place] [facility] [address] [id number] [place] [address] Feb, 2013 [facility] [place] [facility] [address] [id number] [place] [address] Feb, 2013 [facility] [place] [facility] [address] [id number] [place] [address] Jan, [facility] [place] [facility] [address] [id number] [place] [address] Jan, [facility] [place] [facility] [address] [id number] [place] [address] Jan, [facility] [place] [facility] [address] [id number] [place] [address] Jan, [facility] [place] [facility] [address] [id number] [place] [address] Jan, [facility] [place] [facility] [address] [id number] [place] [address] Jan, [facility] [place] [facility] [address] [id number] [place] [address] Jan, [facility] [place] [facility] [address] [id number] [place] [address] Jan, [facility] [place] [facility] [address] [id number] [place] [address] Jan, [facility] [place] [facility] [address] [id number] [place] [address]- [address] Jan, [facility] [place] [facility] [address] [id number] [place] [address]- [address] Jan, [facility] [place] [facility] [address] [id number] [place] [address] Jan, [facility] [place] [facility] [address] [id number] [place] [address] Jan, [facility] [place] [facility] [address] [id number] [place] [address] Dec, [facility] [place] [facility] [address] [id number] [place] [address]- [address] Dec, [facility] [place] [facility] [address] [id number] [place] [address] Dec, [facility] [place] [facility] [address] [id number] [place] [address] Dec, [facility] [place] [facility] [address] [id number] [place] [address]- [address] Dec, [facility] [place] [facility] [address] [id number] [place] [address]- [address] Dec, [facility] [place] [facility] [address] [id number] [place] [address] Dec, [facility] [place] [facility] [address] [id number] [place] [address] Dec, 2013 [facility] [place] [facility] [address] [id number] [place] [address]- [address] Dec, [facility] [place] [facility] [address] [id number] [place] [address]- [address] Dec, 2013 [facility] [place] [facility] [address] [id number] [place] [address] Dec, 2013 [facility] [place] [facility] [address] [id number] [place] [address] Dec, [facility] [place] [facility] [address] [id number] [place] [address]- [address] Dec, [facility] [place] [facility] [address] [id number] [place] [address] Dec, [facility] [place] [facility] [address] [id number] [place] [address] Dec, [facility] [place] [facility] [address] [id number] [place] [address]- [address] Dec, [facility] [place] [facility] [address] [id number] [place] [address] Dec, [facility] [place] [facility] [address] [id number] [place] [address]- [address] Dec, [facility] [place] [facility] [address] [id number] [place] [address] Nov, [facility] [place] [facility] [address] [id number] [place] [address] Nov, [facility] [place] [facility] [address] [id number] [place] [address] Nov, [facility] [place] [facility] [address] [id number] [place] [address] Nov, [facility] [place] [facility] [address] [id number] [place] [address] Nov, [facility] [place] [facility] [address] [id number] [place] [address] Nov, [facility] [place] [facility] [address] [id number] [place] [address] 6869 Nov, [facility] [place] [facility] [address] [id number] [place] [address] 48[address] Nov, [facility] [place] [facility] [address] [id number] [place] [address]- 4[address] Nov, [facility] [place] [facility] [address] [id number] [place] [address] 4247 Nov, [facility] [place] [facility] [address] [id number] [place] [address]- 9104 Nov, [facility] [place] [facility] [address] [id number] [place] [address]- 9088 Nov, [facility] [place] [facility] [address] [id number] [place] [address]- 0499 Nov, [facility] [place] [facility] [address] [id number] [place] [address]- 8748 Nov, [facility] [place] [facility] [address] [id number] [place] [address]- 3338 Nov, [facility] [place] [facility] [address] [id number] [place] [address]- 4467 Nov, [facility] [place] [facility] [address] [id number], [place] [address]- [address] Nov, [facility] [place] [facility] [address] [id number] [place] [address]- 0190 Nov, [facility] [place] [facility] [address] [id number] [place] [address]- 2351 Nov, [facility] [place] [facility] [address] [id number] [place] [address]- 0807 Nov, [facility] [place] [facility] [address] [id number] [place] [address]- 0577 October, [facility] [place] [facility] [address] [id number] [place] [address]- 3956 October, [facility] [place] [facility] [address] [id number] [place] [address]- 0914 October, [facility] [place] [facility] [address] [id number] [place] [address]- 3671 October, [facility] [place] [facility] [address] [id number] [place] [address]- 489[address] Sep, [facility] [place] [facility] [address] [id number] [place] [address]- 5117 Sep, [facility] [place] [facility] [address] [id number] [place] [address]- 2867 Sep, [facility] [place] [facility] [address] [id number] [place] [address]- 0788 Sep, [facility] [place] [facility] [address] [id number] [place] [address]- 3278 Sep, [facility] [place] [facility] [address] [id number] [place] [address]- 1793 Sep, [facility] [place] [facility] [address] [id number] [place] [address]- 1894 Sep, [facility] [place] [facility] [address] [id number] [place] [address]- 3542 Sep, [facility] [place] [facility] [address] [id number] [place] [address]- 5681 Sep, [facility] [place] [facility] [address] [id number] [place] [address]- 4197 Aug, [facility] [place] [facility] [address] [id number] [place] [address]- 5042 Aug, [facility] [place] [facility] [address] [id number] [place] [address]- 4519 Aug, [facility] [place] [facility] [address] [id number] [place] [address]- 9925 Aug, [facility] [place] [facility] [address] [id number] [place] [address]- 3555 Aug, [facility] [place] [facility] [address] [id number] [place] [address] Aug, [facility] [place] [facility] [address] [id number] [place] [address]- 7878 Aug, [facility] [place] [facility] [address] [id number] [place] [address]- 6047 Aug, [facility] [place] [facility] [address] [id number] [place] [address]- 3909 Jul, [facility] [place] [facility] [address] [id number] [place] [address]- 7942 Jul, [facility] [place] [facility] [address] [id number] [place] [address]- 7883 Jun, [facility] [place] [facility] [address] [id number] [place] [address]- 5960 Jun, [facility] [place] [facility] [address] [id number] [place] [address]- 8357 Jun, [facility] [place] [facility] [address] [id number] [place] [address]- 6903 Jun, [facility] [place] [facility] [address] [id number] [place] [address]- 6954 Jun, [facility] [place] [facility] [address] [id number] [place] [address]- 1293 Jun, [facility] [place] [facility] [address] [id number] [place] [address]- 2816 Jun, [facility] [place] [facility] [address] [id number] [place] [address]- 0242 Jun, [facility] [place] [facility] [address] [id number] [place] [address]- 5252 15 Jun, 2013 [facility] [address] [id number] [place] [address]- 9828 14 Jun, 2013 [facility] [address] [id number] [place] [address]- 6438 Jun, [facility] [address] [id number] [place] [address]- 1872 Jun, [facility] [address] [id number] [place] [address]- 9352 31 May, 2013 [facility] [address] [id number] [place] [address]- 6979 May, [facility] [address] [id number] [place] [address]- 5902 May, [facility] [address] [id number] [place] [address]- 1778 31 May, 2013 [facility] [address] [id number] [place] [address]- 2843 31 May, 2013 [facility] [address] [id number] [place] [address]- 1496 31 May, 2013 [facility] [address] [id number] [place] [address]- 5980 26 May, 2013 [facility] [address] [id number] [place] [address] 2540 23 May, 2013 [facility] [address] [id number] [place] [address] 2542 23 May, 2013 [facility] [address] [id number] [place] [address]- 0472 16 May, 2013 [facility] [address] [id number] [place] [address]- 7479 16 May, 2013 [facility] [address] [id number] [place] [address]- 3970 May, [facility] [place] [facility] [address] [id number] [place] [address]- 9462 May, [facility] [place] [facility] [address] [id number] [place] [address]- 2346 Apr, [facility] [place] [facility] [address] [id number] [place] [address]- 8092 Apr, [facility] [place] [facility] [address] [id number] [place] [address]- 0271 Mar, [facility] [place] [facility] [address] [id number] [place] [address]- 4083 Mar, [facility] [place] [facility] [address] [id number] [place] [address]- 3796 24 Feb, 2013 [facility] [place] [facility] [address] [id number] [place] [address]- 4278 Feb, [facility] [place] [facility] [address] [id number] [place] [address]- 8579 Feb, [facility] [place] [facility] [address] [id number] [place] [address]- 6811 Feb, [facility] [place] [facility] [address] [id number], [place] [address]- 7863 Jan, [facility] [place] [facility] [address] [id number], [place] [address]- 9539 Jan, [facility] [place] [facility] [address] [id number], [place] [address]- 8432 Jan, [facility] [place] [facility] [address] [id number] [place] [address]- 2159 Jan, [facility] [place] [facility] [address] [id number], [place] [address]- 0722 Jan, [facility] [place] [facility] [address] [id number], [place] [address]- 1017 Jan, [facility] [place] [facility] [address] [id number], [place] [address]- 6036 Dec, [facility] [address] [id number] [place] [address]- 8846 Dec, [facility] [place] [facility] [address] [id number] [place] [address]- 6184 Dec, [facility] [address] [id number] [place] [address]- 8687 Dec, [facility] [address] [id number] [place] [address]- 1838 Nov, [facility] [address] [id number] [place] [address]- 2871 October, [facility] [address] [id number] [place] [address]- 4222 October, [facility] [address] [id number] [place] [address]- 7448 October, [facility] [address] [id number] [place] [address]- 9892 Sep, [facility] [address] [id number] [place] [address]- 1004 Sep, [facility] [place] [facility] [address] [id number] [place] [address]- 3990 Jun, [facility] [address] [id number] [place] [address]- 0713 Jun, [facility] [place] [facility] [address] [id number] [place] [address]- 8292 Jun, [facility] [place] [facility] [address] [id number] [place] [address]- 5306 Apr, [facility] [place] [facility] [address] [id number] [place] [address]- 6794 Apr, [facility] [place] [facility] [address] [id number] [place] [address]- 2224 Apr, [facility] [place] [facility] [address] [id number] [place] [address]- 1817 Apr, [facility] [place] [facility] [address] [id number] [place] [address]- 6006 Mar, [facility] [place] [facility] [address] [id number] [place] [address]- 1156 Mar, [facility] [place] [facility] [address] [id number] [place] [address]- 9200 Mar, [facility] [place] [facility] [address] [id number] [place] [address]- 5083 Mar, [facility] [place] [facility] [address] [id number] [place] [address]- 7898 Feb, [facility] [place] [facility] [address] [id number] [place] [address]- 6826 Feb, [facility] [place] [facility] [address] [id number] [place] [address]- 4255 Feb, [facility] [place] [facility] [address] [id number] [place] [address]- 3240 Jan, [facility] [place] [facility] [address] [id number] [place] [address]- 9692 Jan, [facility] [place] [facility] [address] [id number] [place] [address]- 5683 Jan, [facility] [place] [facility] [address] [id number] [place] [address]- 2317 Jan, [facility] [place] [facility] [address] [id number] [place] [address]- 2555 Dec, [facility] [place] [facility] [address] [id number] [place] [address]- 3486 Dec, [facility] [place] [facility] [address] [id number] [place] [address]- 2546 Nov, [facility] [place] [facility] [address] [id number] [place] [address]- 5749 Nov, [facility] [place] [facility] [address] [id number] [place] [address]- 5775 October, [facility] [place] [facility] [address] [id number] [place] [address]- 0307 October, [facility] [place] [facility] [address] [id number] [place] [address]- 8300 October, [facility] [place] [facility] [address] [id number] [place] [address]- 2848 Sep, [facility] [place] [facility] [address] [id number] [place] [address]- 6074 Sep, [facility] [place] [facility] [address] [id number] [place] [address]- 4853 Sep, [facility] [place] [facility] [address] [facility] [id number] [place] [address]- 2487 Aug, [facility] [place] [facility] [address] [id number] [place] [address]- 8838 Aug, [facility] [place] [facility] [address] [id number] [place] [address]- 1672 Aug, [facility] [place] [facility] [address] [facility] [id number] [place] [address]- 4363 Aug, [facility] [place] [facility] [address] [id number] [place] [address]- 0162 Aug, [facility] [place] [facility] [address] [id number], [place] [address]- 9203 Jul, [facility] [place] [facility] [address] [id number] [place] [address]- 4030 16 Jul, 2011 [facility] [place] [facility] [address] [id number] [place] [address]- 9336 Jul, [facility] [place] [facility] [address] [facility] [id number] [place] [address]- 1556 Jul, [facility] [place] [facility] [address] [id number] [place] [address]- 2557 07 Jul, 2011 [facility] [address] [id number] [place] [address]- 0196 Jul, [facility] [place] [facility] [address] [id number] [place] [address]- 2546 Jul, [facility] [place] [facility] [address] [id number] [place] [address]- 2556 Jul, [facility] [place] [facility] [address] [id number] [place] [address]- 3509 Jun, [facility] [place] [facility] [address] [id number] [place] [address]- 0277 Jun, [facility] [place] [facility] [address] [facility] [id number] [place] [address] May, [facility] [place] [facility] [address] [id number] [place] [address]- 9223 May, [facility] [place] [facility] [address] [id number] [place] [address]- 3862 May, [facility] [place] [facility] [address] [facility] [id number] [place] 9793 May, [facility] [place] [facility] [address] [facility] [id number] [place] [address]- 5688 Apr, [facility] [place] [facility] [address] [id number] [place] [address]- 8334 Apr, [facility] [place] [facility] [address] [id number] [place] [address]- 5324 Apr, [facility] [place] [facility] [address] [facility] [id number] [place] [address]- 2536 Mar, [facility] [place] [facility] [address] [id number] [place] [address]- 8666 Mar, [facility] [place] [facility] [address] [facility] [id number] [place] [address]- 2114 18 Mar, 2011 [facility] [place] [facility] [address] [id number] [place] [address]- 3264 2011 [facility] [place] [facility] [address] [id number] [place] [address]- 4566 Dec, [facility] [place] [facility] [address] [id number] [place] [address]- 4151 October, [facility] [place] [facility] [address] [id number] [place] [address]- 1990 28 May, 2010 [facility] [place] [facility] [address] [id number] [place] [address]- 9957 13 May, 2010 [facility] [place] [facility] [address] [id number] [place] [address]- 2907 13 May, 2010 [facility] [place] [facility] [address] [id number] [place] [address]- 9784 May, [facility] [place] [facility] [address] [id number] [place] [address]- 2558 Mar, [facility] [place] [facility] [address] [id number] [place] [address]- 5400 Mar, [facility] [place] [facility] [address] [id number] [place] [address]- 9497 31 May, 2009 [facility] [place] [facility] [address] [id number], [place] [address]- 7192 30 May, 2009 [facility] [place] [facility] [address] [id number], [place] [address]- 3820 08 May, 2009 [facility] [place] [facility] [address] [id number] [place] [address]- 6142 May, [facility] [place] [facility] [address] [id number], [place] [address]- 4397 Apr, [facility] [place] [facility] [address] [id number] [place] [address]- 2723 Apr, [facility] [place] [facility] [address] [facility] [id number] [place] [address]- 6102 October, IMMUNIZATIONS No Known Immunizations SOCIAL HISTORY Never Assessed REASON FOR VISIT Medication refill request PLAN OF CARE VITAL SIGNS MEDICATIONS Medication Instructions Dosage Frequency Start Date End Date Duration Status Montelukast Sodium 10 MG Orally Once a day 1 tablet in the evening 24h 90 days Active RESULTS No Results PROCEDURES [...]
--- OUTSIDE RECORDS SUMMARY | 2018-03-17 11:05 | XMS REPORT ---
Author Author THOMAS JENNINGS Organization [facility] Address [address] [place] [address] Care Team Providers Care Supervisor Train Operations Name Role Phone MICHAELA THOMAS Unavailable PROBLEMS Type Condition ICD9-CM Code RYR39-GY Code Onset Dates Condition Status SNOMED Code Problem Other chronic pain G89.29 Active 26853612 Problem On home oxygen therapy Z99.81 Active 753333181950 Problem Mild chronic obstructive pulmonary disease J44.9 Active 112286516 Problem COPD (chronic obstructive pulmonary disease) with chronic bronchitis J44.9 Active 504383516 Problem History of illicit drug use Z87.898 Active 333102622 Problem COPD exacerbation J44.1 Active 655577461 Problem Neuropathy G62.9 Active 558266413 Problem Essential hypertension I10 Active 94930097 Problem 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 Active 59527451 Problem Major depressive disorder, recurrent episode, moderate F33.1 Active 056888501 Problem Impaired circulation I99.9 Active 10472573 Problem 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 Active 79282983 Problem Snoring R06.83 Active 52981912 Problem MRSA (methicillin resistant staph aureus) culture positive Z22.322 Active 392721275 Problem Fatigue R53.83 Active 87988767 Problem Varicose veins of both lower extremities I83.93 Active 71424532 Problem Dysthymic disorder F34.1 Active 72850177 Problem Upper respiratory tract infection, unspecified type J06.9 Active 50595706 Problem Panic disorder without agoraphobia F41.0 Active 87390352 Problem Mild persistent asthma without complication J45.30 Active 020243476 ALLERGIES Substance Reaction Event Type Date Status Sulfamethoxazole-Trimethoprim Unknown Drug Allergy Jan, Active Codeine Phosphate swelling Drug Allergy Jan, Active ENCOUNTERS Encounter Location Date Diagnosis [facility] [address] [facility] [id number] [address] May, [facility] [id number] [place] [address] 82995- 7270 Feb, [facility] [address] [address]- [address] Feb, Skin fissures R23.4 ; Neuropathy G62.9 and Onychomycosis B35.1 [facility] [address] [address]- 3896 05 Feb, 2018 Dysthymic disorder F34.1 [facility] [id number] [place] [address] 28583- 5901 Feb, [place] [address] [address]- [address] Jan, [place] [address] 6[address]- 8376 Jan, Abrasion of right elbow, initial encounter S50.311A ; Abrasion, right knee, initial encounter S80.211A and Sprain of other ligament of right ankle, initial encounter S93.491A [place] [id number] [place] [address] 49428- 9836 Jan, [facility] [id number] [place] [address] 06548 -7082 Jan, Injury of left ankle, initial encounter S99.912A ; Fall down stairs, initial encounter W10.8XXA and BMI 45.0-49.9, adult Z68.42 [place] [id number] [place] [address] 99425- 9213 Jan, COPD exacerbation J44.1 [place] [address] 96796- 8689 Jan, Dysfunction of both eustachian 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 [place] [address] [id number] [place] [address] 44293- 2263 Jan, Bronchitis J40 and Acute suppurative otitis media of left ear without spontaneous rupture of tympanic membrane, recurrence not specified H66.002 [place] [id number] [place] [address] 65149- 9121 Jan, [place] [address] 05518- 6967 Jan, Bronchitis J40 and BMI 40.0-44.9, adult Z68.41 [place] [address] 88790- 7880 Jan, [place] [address] 39475- 6271 Dec, Gastric pain R10.9 [place] [address] 90618- 8120 Dec, [place] [address] 46719- 0098 Dec, History of illicit drug use Z87.898 ; Neuropathy G62.9 ; COPD (chronic obstructive pulmonary disease) with chronic bronchitis J44.9 and Acute pain of right knee M25.561 [place] [address] 17829- 2624 Nov, [place] [id number] [place] [address] 99044- 1338 Nov, Onychomycosis B35.1 and Contusion of left foot, subsequent encounter S90.32XD [place] [id number] [place] [address] 53750- 9293 Nov, COPD exacerbation J44.1 [place] [id number] [place] [address] 63746- 6815 Sep, [place] [id number] [place] [address] 36469- 4253 Sep, Dysthymic disorder F34.1 ; Tobacco abuse Z72.0 ; Pain in right knee M25.561 ; Pain in left knee M25.562 ; Other chronic pain G89.29 and BMI 40.0-44.9, adult Z68.41 [place] [address] 06162- 5194 Aug, Major depressive disorder, recurrent episode, moderate F33.1 and 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 [place] [address] 12895- 9675 14 Aug, 2017 Dysthymic disorder F34.1 ; Non-pressure chronic ulcer of left thigh, unspecified ulcer stage L97.129 ; Tobacco abuse Z72.0 ; Mild chronic obstructive pulmonary disease J44.9 and Forgetfulness R68.89 [place] [address] 44640- 7042 Aug, Onychomycosis B35.1 ; Fissure in skin of foot R23.4 and Foot callus L84 [facility] [address] [address] Jul, Right medial knee pain M25.561 ; Upper respiratory tract infection, unspecified type J06.9 and BMI 40.0-44.9, adult Z68.41 [facility] [place] [address] [address]48 08 Jul, 2017 Nausea and vomiting, intractability of vomiting not specified, unspecified vomiting type R11.2 ; Left ear pain H92.02 and Gastric pain R10.9 [place] [address] 29609- 5942 Apr, Encounter for immunization Z23 [place] [address] 34077- 7251 Apr, Onychomycosis B35.1 ; Xerosis of skin L85.3 ; Neuropathy G62.9 and 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 [place] [address] 28029- 1153 Jan, Onychomycosis B35.1 and Neuropathy G62.9 [place] [address] [address] 28[address] Dec, [facility] [address] [address] 67[address] Dec, [facility] [address] [address] 6946 Nov, [facility] [address] [address] 7006 Aug, [facility] [address] [address] 6692 Aug, [facility] [address] [address] 1346 Jul, [facility] [address] [address] Jul, [facility] [address] [address] 4421 Jul, Decubitus ulcer of left thigh, stage 2 L89.892 [facility] [address] [address] 17 Jul, 2016 Decubitus ulcer of left thigh, stage 2 L89.892 [facility] [address] [address]- 6696 17 Jul, 2016 [facility] [address] [place] [id number] [address]- 1629 15 Jul, 2016 Decubitus ulcer of left thigh, stage 2 L89.892 [facility] [address] [address] [id number] [address]- 2786 14 Jul, 2016 [facility] [address] [id number] [address]- 8681 13 Jul, 2016 Cellulitis of other specified site L03.818 ; Illicit drug use F19.90 and Decubitus ulcer of left thigh, stage 2 L89.892 [place] [id number] [place] [address] 00327- 1013 Jul, [facility] [address] [id number] [place] [address] 87164- 7902 Jul, Cellulitis of right breast N61.0 [facility] [id number] [place] [address] 20957- 1888 Jun, [place] [id number] [place] [address] 41836- 3775 Jun, [place] [id number] [place] [address] 56221- 7767 Jun, Wheezing R06.2 and Arthralgia, unspecified joint M25.50 [place] [id number] [place] [address] 21407- 3542 May, [place] [address] 91058- 6729 May, [place] [id number] [place] [address] 47429- 7433 May, [place] [id number] [place] [address] 51030- 1805 May, Shortness of breath R06.02 [place] [id number] [place] [address] 28574- 0965 May, Onychomycosis B35.1 and Fissure in skin of foot R23.4 [place] [id number] [place] [address] 66370- 0501 Apr, [facility] [id number] [place] [address] 99830 -0769 18 Apr, 2016 Dizziness R42 [place] [id number] [place] [address] 25233- 8876 14 Apr, 2016 Shortness of breath R06.02 ; Essential hypertension I10 ; Dizziness R42 and On home oxygen therapy Z99.81 [facility] [address] [id number] [address]- 6994 Apr, [facility] [address] [facility] [id number] [address]- 7119 Apr, [facility] [address] [facility] [id number] [address]- 0027 Apr, [facility] [address] [facility] [id number] [address]- 5488 Apr, [facility] [address] [facility] [id number] [place] [address]- 5152 Apr, [facility] [address] [facility] [id number] [place] [address]- 6610 Apr, [facility] [address] [place] [address] [id number] [address]- 3005 Apr, [facility] [address] [address]- 9031 Mar, Mild chronic obstructive pulmonary disease J44.9 [facility] [address] [address]- 9528 Mar, [facility] [address] [address]- 8802 Mar, Epigastric pain R10.13 ; Low back pain M54.5 ; Other chronic pain G89.29 and Breast cancer screening Z12.39 [facility] [address] [address]- 7402 Mar, [facility] [address] [id number] [address]- 0311 Mar, [facility] [address] [id number] [address]- 7880 Feb, [facility] [address] [id number] [address]- 0945 Feb, [facility] [address] [address]- 6948 Feb, Fissure in skin of foot R23.4 and Onychomycosis B35.1 [place] [address] [place] [address] 40628- 7624 Jan, 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 [place] [address] [place] [address] 57004- 4168 Dec, 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 [place] [address] [place] [address] 36829- 6341 Dec, Mild persistent asthma without complication J45.30 ; Dysthymic disorder F34.1 and Upper respiratory tract infection, unspecified type J06.9 [place] [address] [place] [address] 02791- 4034 Nov, 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 [place] [address] [id number] [place] [address] 16859- 5352 October, 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 [place] [address] [address] [id number] [place] [address] 66567- 2661 Sep, Panic disorder without agoraphobia F41.0 ; 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 and Dysthymic disorder F34.1 [place] [address] [place] [address] 56307- 9609 Sep, Panic attacks F41.0 [place] [address] [place] [id number] [place] [address] 03570- 0721 Sep, [place] [address] [place] [id number] [place] [address] 97165- 5815 Sep, Panic disorder without agoraphobia F41.0 ; Varicose veins of both lower extremities I83.93 and Fatigue R53.83 [place] [address] [address]- 8312 Sep, Fatigue R53.83 [place] [address] [place] [address] [id number] [place] [address] 48082- 7148 Sep, [place] [address] [id number] [place] [address] 57266- 1897 Aug, [place] [address] [place] [id number] [place] [address] 12871- 2166 Aug, [place] [id number] [place] [address] 02792- 3890 Aug, 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 [place] [address] [place] [address] [id number] [place] [address] 88905- 2696 Aug, Panic disorder without agoraphobia F41.0 ; 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 and Dysthymic disorder F34.1 [place] [address] [id number] [place] [address] 80177- 5916 Aug, Shortness of breath R06.02 ; Panic attacks F41.0 ; COPD ( chronic obstructive pulmonary disease) J44.9 ; Tobacco abuse Z72.0 ; Family history of diabetes mellitus Z83.3 and Weight gain R63.5 [place] [address] [place] [id number] [place] [address] 43113- 7703 Aug, [place] [address] [place] [id number] [place] [address] 09359- 2558 Jul, [place] [address] [place] [id number] [place] [address] 58721- 6447 Jun, Onychomycosis B35.1 ; Neuropathy G62.9 and Impaired circulation I99.9 [place] [address] [place] [id number] [place] [address] 99135- 3468 Mar, Fissure in skin of foot R23.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 [place] [address] [place] [id number] [place] [address] 28627- 8447 Feb, Family history of coronary arteriosclerosis V17.3 [facility] [address] [address]- 9023 15 Feb, 2015 Allergic rhinitis due to pollen 477.0 ; Unspecified breast screening V76.10 ; Anxiety 300.00 and Family history of coronary arteriosclerosis V17.3 [facility] [address] 3394 Jan, [facility] [id number] [place] [address] 98305- 2160 Dec, [facility] [id number] [place] [address] 74682- 4382 Dec, Onychomycosis 110.1 and Skin fissures 709.8 [facility] [address] [address]- 9279 Sep, [facility] [id number] [place] [address] 41103- 3005 Sep, [facility] [address] [address]- 8089 Aug, [facility] [address] [address]- 2494 Aug, [facility] [address] [address]- 6906 Jul, [facility] [address] [address]- 1564 Jul, [facility] [address] [address]- 4228 Jun, [facility] [address] 0399 Jun, [facility] [address] [address]- 1550 Jun, [facility] [address]- 2264 Jun, [facility] [place] [facility] [address] [id number] [place] [address]- 1034 Jun, [facility] [place] [facility] [address] [id number] [place] [address]- 2921 May, [facility] [place] [facility] [address] [id number] [place] [address]- 7913 May, [facility] [place] [facility] [address] [id number] [place] [address]- 0709 May, [facility] [place] [facility] [address] [id number] [place] [address]- 8571 May, [facility] [place] [facility] [address] [id number] [place] [address]- 3187 May, [facility] [place] [facility] [address] [id number] [place] [address]- 1725 May, [facility] [place] [facility] [address] [id number] [place] [address]- 4370 May, [facility] [place] [facility] [address] [id number] [place] [address]- 8435 May, [facility] [place] [facility] [address] [id number] [place] [address]- 4809 Apr, [facility] [place] [facility] [address] [id number] [place] [address]- 2831 Apr, [facility] [place] [facility] [address] [id number] [place] [address]- 9576 Apr, [facility] [place] [facility] [address] [id number] [place] [address]- 9978 Apr, [facility] [place] [facility] [address] [id number] [place] [address]- 0165 Apr, [facility] [place] [facility] [address] [id number] [place] [address]- 8403 Apr, [facility] [place] [facility] [address] [id number] [place] [address]- 2094 07 Apr, 2014 [facility] [place] [facility] [address] [id number] [place] [address]- 3873 Apr, [facility] [place] [facility] [address] [id number] [place] [address]- 0606 Apr, [facility] [place] [facility] [address] [id number] [place] [address]- 5976 Apr, [facility] [place] [facility] [address] [id number] [place] [address]- 2351 Mar, [facility] [place] [facility] [address] [id number] [place] [address]- 5726 Mar, [facility] [place] [facility] [address] [id number] [place] [address]- 0495 Mar, [facility] [place] [facility] [address] [id number] [place] [address]- 7543 Mar, [facility] [place] [facility] [address] [id number] [place] [address]- 4260 Mar, [facility] [place] [facility] [address] [id number] [place] [address]- 0433 Mar, [facility] [place] [facility] [address] [id number] [place] [address]- 3637 Mar, [facility] [place] [facility] [address] [id number] [place] [address]- 9836 Mar, [facility] [place] [facility] [address] [id number] [address]- 9782 24 Mar, 2014 [facility] [place] [facility] [address] [id number] [place] [address]- 0575 Mar, [facility] [place] [facility] [address] [id number] [place] [address]- 2836 Mar, [facility] [place] [facility] [address] [id number] [place] [address]- 5753 Mar, [facility] [place] [facility] [address] [id number] [place] [address]- 9234 22 Mar, 2013 [facility] [place] [facility] [address] [id number] [place] [address]- 2387 22 Mar, 2013 [facility] [place] [facility] [address] [id number] [place] [address]- 4224 22 Mar, 2013 [facility] [place] [facility] [address] [id number] [place] [address]- 7755 20 Mar, 2013 [facility] [place] [facility] [address] [id number] [place] [address]- 7653 20 Mar, 2013 [facility] [place] [facility] [address] [id number] [place] [address]- 6067 16 Mar, 2013 [facility] [place] [facility] [address] [id number] [place] [address]- 8712 16 Mar, 2014 [facility] [place] [facility] [address] [id number] [place] [address]- 7649 15 Mar, 2014 [facility] [place] [facility] [address] [id number] [place] [address]- 3702 14 Mar, 2014 [facility] [place] [facility] [address] [id number] [place] [address]- 6875 14 Mar, 2014 [facility] [place] [facility] [address] [id number] [place] [address]- 0518 14 Mar, 2014 [facility] [place] [facility] [address] [id number] [place] [address]- 7481 14 Mar, 2014 [facility] [place] [facility] [address] [id number] [place] [address]- 6975 09 Mar, 2014 [facility] [place] [facility] [address] [id number] [place] [address]- 1928 09 Mar, 2014 [facility] [place] [facility] [address] [id number] [place] [address]- 3932 09 Mar, 2014 [facility] [place] [facility] [address] [id number] [place] [address]- 2119 Mar, 2013 [facility] [place] [facility] [address] [id number] [place] [address]- 4192 30 Feb, 2013 [facility] [place] [facility] [address] [id number] [place] [address]- 5406 30 Feb, 2013 [facility] [place] [facility] [address] [id number] [place] [address]- 0346 30 Feb, 2013 [facility] [place] [facility] [address] [id number] [place] [address]- 1749 30 Feb, 2013 [facility] [place] [facility] [address] [id number] [place] [address]- 0091 Feb, 2013 [facility] [place] [facility] [address] [id number] [place] [address]- 0852 Feb, 2013 [facility] [place] [facility] [address] [id number] [place] [address]- 5580 Feb, 2013 [facility] [place] [facility] [address] [id number] [address]- 3904 Feb, 2013 [facility] [place] [facility] [address] [id number] [place] [address]- 4152 Feb, 2013 [facility] [place] [facility] [address] [id number] [place] [address] Feb, 2013 [facility] [place] [facility] [address] [id number] [place] [address] Feb, 2013 [facility] [place] [facility] [address] [id number] [place] [address] Feb, 2013 [facility] [place] [facility] [address] [id number] [place] [address] Jan, [facility] [place] [facility] [address] [id number] [place] [address] Jan, [facility] [place] [facility] [address] [id number] [place] [address] Jan, [facility] [place] [facility] [address] [id number] [place] [address] Jan, [facility] [place] [facility] [address] [id number] [place] [address] Jan, [facility] [place] [facility] [address] [id number] [place] [address] Jan, [facility] [place] [facility] [address] [id number] [place] [address] Jan, [facility] [place] [facility] [address] [id number] [place] [address] Jan, [facility] [place] [facility] [address] [id number] [place] [address] Jan, [facility] [place] [facility] [address] [id number] [place] [address] Jan, [facility] [place] [facility] [address] [id number] [place] [address] Jan, [facility] [place] [facility] [address] [id number] [place] [address] Jan, [facility] [place] [facility] [address] [id number] [place] [address] Jan, [facility] [place] [facility] [address] [id number] [place] [address] Dec, [facility] [place] [facility] [address] [id number] [place] [address] Dec, [facility] [place] [facility] [address] [id number] [place] [address] Dec, [facility] [place] [facility] [address] [id number] [place] [address] Dec, [facility] [place] [facility] [address] [id number] [place] [address] Dec, [facility] [place] [facility] [address] [id number] [place] [address] Dec, [facility] [place] [facility] [address] [id number] [place] [address] Dec, 2013 [facility] [place] [facility] [address] [id number] [place] [address] Dec, 2013 [facility] [place] [facility] [address] [id number] [place] [address] Dec, 2013 [facility] [place] [facility] [address] [id number] [place] [address] Dec, 2013 [facility] [place] [facility] [address] [id number] [place] [address] Dec, [facility] [place] [facility] [address] [id number] [place] [address] Dec, 2013 [facility] [place] [facility] [address] [id number] [place] [address] Dec, 2013 [facility] [place] [facility] [address] [id number] [place] [address] Dec, 2013 [facility] [place] [facility] [address] [id number] [place] [address] Dec, [facility] [place] [facility] [address] [id number] [place] [address] Dec, [facility] [place] [facility] [address] [id number] [place] [address] Dec, [facility] [place] [facility] [address] [id number] [place] [address] Dec, [facility] [place] [facility] [address] [id number] [place] [address] Nov, [facility] [place] [facility] [address] [id number] [place] [address] Nov, [facility] [place] [facility] [address] [id number] [place] [address] Nov, [facility] [place] [facility] [address] [id number] [place] [address] Nov, [facility] [place] [facility] [address] [id number] [place] [address] Nov, [facility] [place] [facility] [address] [id number] [place] [address] Nov, [facility] [place] [facility] [address] [address] [id number] [place] [address] Nov, [facility] [place] [facility] [address] [id number] [place] [address] Nov, [facility] [place] [facility] [address] [id number] [place] [address] Nov, [facility] [place] [facility] [address] [id number] [place] [address]692 Nov, [facility] [place] [facility] [address] [id number] [place] [address] Nov, [facility] [place] [facility] [address] [id number] [place] [address]- [address] Nov, [facility] [place] [facility] [address] [id number] [place] [address] 2671 Nov, [facility] [place] [facility] [address] [id number] [place] [address] 2370 Nov, [facility] [place] [facility] [address] [id number] [place] [address] 8705 Nov, [facility] [place] [facility] [address] [id number] [place] [address] 5775 Nov, [facility] [place] [facility] [address] [id number] [place] [address] 2668 Nov, [facility] [place] [facility] [address] [id number] [place] [address]- 7962 Nov, [facility] [place] [facility] [address] [id number] [place] [address]- 9643 Nov, [facility] [place] [facility] [address] [id number] [place] [address]- 150[address] Nov, [facility] [address] [id number] [place] [address] 65[address] October, [facility] [place] [facility] [address] [id number] [place] [address] 3864 October, [facility] [address] [id number] [place] [address]- 4634 October, [facility] [place] [facility] [address] [id number] [place] [address]- 0176 October, [facility] [address] [id number] [place] [address]- 75[address] Sep, [facility] [place] [facility] [address] [id number] [place] [address] 6362 Sep, [facility] [address] [id number] [place] [address]- 7338 Sep, [facility] [address] [id number] [place] [address]- 7171 Sep, [facility] [place] [facility] [address] [id number] [place] [address]- 8921 Sep, [facility] [address] [id number] [place] [address]- 2597 Sep, [facility] [place] [facility] [address] [id number] [place] [address]- 9212 Sep, [facility] [place] [facility] [address] [id number] [place] [address]- 6902 Sep, [facility] [place] [facility] [address] [id number] [place] [address]- 4210 Sep, [facility] [place] [facility] [address] [id number] [place] [address]- 7089 Aug, [facility] [place] [facility] [address] [id number] [place] [address]- 1523 Aug, [facility] [place] [facility] [address] [id number] [place] [address]- 6195 Aug, [facility] [place] [facility] [address] [id number] [place] [address]- 1675 Aug, [facility] [place] [facility] [address] [id number] [place] [address]- 8585 Aug, [facility] [place] [facility] [address] [id number] [place] [address]- 7618 Aug, [facility] [place] [facility] [address] [id number] [place] [address]- 3664 Aug, [facility] [place] [facility] [address] [id number] [place] [address]- 7329 Aug, [facility] [place] [facility] [address] [id number] [place] [address]- 8244 Jul, [facility] [place] [facility] [address] [id number] [place] [address]- 8917 Jul, [facility] [place] [facility] [address] [id number] [place] [address]- 0144 Jun, [facility] [place] [facility] [address] [id number] [place] [address]- 0991 Jun, [facility] [place] [facility] [address] [id number] [place] [address]- 3030 Jun, [facility] [place] [facility] [address] [id number] [place] [address]- 3226 Jun, [facility] [place] [facility] [address] [id number] [place] [address]- 7002 Jun, [facility] [place] [facility] [address] [id number] [place] [address]- 7496 Jun, [facility] [place] [facility] [address] [id number] [place] [address]- 4582 Jun, [facility] [place] [facility] [address] [id number] [place] [address]- 9033 15 Jun, 2013 [facility] [address] [id number] [place] [address]- 7419 15 Jun, 2013 [facility] [address] [id number] [place] [address]- 9775 14 Jun, 2013 [facility] [address] [id number] [place] [address]- 0486 02 Jun, 2013 [facility] [address] [id number] [place] [address]- 1216 02 Jun, 2013 [facility] [address] [id number] [place] [address]- 0905 31 May, 2013 [facility] [address] [id number] [place] [address]- 3751 31 May, 2013 [facility] [address] [id number] [place] [address]- 2889 31 May, 2013 [facility] [address] [id number] [place] [address]- [address] 31 May, 2013 [facility] [address] [id number] [place] [address]- 2536 31 May, 2013 [facility] [address] [id number] [place] [address]- 8275 31 May, 2013 [facility] [address] [id number] [place] [address]- 7041 26 May, 2013 [facility] [place] [facility] [address] [id number] [place] [address]- 2540 23 May, 2013 [facility] [place] [facility] [address] [id number] [place] [address]- 1433 23 May, 2013 [facility] [place] [facility] [address] [id number] [place] [address] 16 May, 2013 [facility] [place] [facility] [address] [id number] [place] [address] 16 May, 2013 [facility] [place] [facility] [address] [id number] [place] [address]- 1254 May, [facility] [place] [facility] [address] [id number] [place] [address]- 3648 May, [facility] [place] [facility] [address] [id number] [place] [address]- 9437 Apr, [facility] [place] [facility] [address] [id number] [place] [address]- 4030 Apr, [facility] [place] [facility] [address] [id number] [place] [address]- 4293 Mar, [facility] [place] [facility] [address] [id number] [place] [address]- 8592 Mar, [facility] [place] [facility] [address] [id number] [place] [address]- 2331 Feb, [facility] [place] [facility] [address] [id number] [place] [address]- 4146 Feb, [facility] [place] [facility] [address] [id number] [place] [address]- 7690 Feb, [facility] [place] [facility] [address] [id number] [place] [address]- 8897 Feb, [facility] [place] [facility] [address] [id number] [place] [address]- 7456 Jan, [facility] [place] [facility] [address] [id number] [place] [address]- 5841 Jan, [facility] [place] [facility] [address] [id number] [place] [address]- 3339 Jan, [facility] [place] [facility] [address] [id number] [place] [address]- 6073 Jan, [facility] [place] [facility] [address] [id number] [place] [address]- 0112 Jan, [facility] [place] [facility] [address] [id number] [place] [address]- 8156 Jan, [facility] [address] [id number] [place] [address]- 0056 Dec, [facility] [place] [facility] [address] [id number] [place] [address]- 5126 Dec, [facility] [place] [facility] [address] [id number] [place] [address]- 0561 Dec, [facility] [place] [facility] [address] [id number] [place] [address]- 8310 Dec, [facility] [address] [id number] [place] [address]- 0282 Nov, [facility] [place] [facility] [address] [id number] [place] [address]- 4173 October, [facility] [place] [facility] [address] [id number] [place] [address]- 9142 October, [facility] [place] [facility] [address] [id number] [place] [address]- 5134 October, [facility] [address] [id number] [place] [address]- 8025 Sep, [facility] [place] [facility] [address] [id number] [place] [address]- 5187 Sep, [facility] [place] [facility] [address] [id number] [place] [address]- 2674 Jun, [facility] [place] [facility] [address] [id number] [place] [address]- 6398 Jun, [facility] [place] [facility] [address] [id number] [place] [address]- 6630 Jun, [facility] [place] [facility] [address] [id number] [place] [address]- 3658 Apr, [facility] [place] [facility] [address] [id number] [place] [address]- 0736 Apr, [facility] [place] [facility] [address] [id number] [place] [address]- 2546 Apr, [facility] [place] [facility] [address] [id number] [place] [address]- 6048 Apr, [facility] [place] [facility] [address] [id number] [place] [address]- 4996 Mar, [facility] [place] [facility] [address] [id number] [place] [address]- 8442 Mar, [facility] [place] [facility] [address] [id number] [place] [address]- 1927 Mar, [facility] [place] [facility] [address] [id number] [place] [address], [place] [address]- 7319 Mar, [facility] [place] [facility] [address] [id number] [place] [address]- 9747 Feb, [facility] [place] [facility] [address] [id number] [place] [address]- 1746 Feb, [facility] [place] [facility] [address] [id number] [place] [address]- 8327 Feb, [facility] [place] [facility] [address] [id number] [place] [address]- 5667 Jan, [facility] [place] [facility] [address] [id number] [place] [address]- 7255 Jan, [facility] [place] [facility] [address] [id number] [place] [address]- 9429 Jan, [facility] [place] [facility] [address] [id number] [place] [address]- 6746 Jan, [facility] [place] [facility] [address] [id number] [place] [address]- 4712 Dec, [facility] [place] [facility] [address] [id number] [place] [address]- 2546 Dec, [facility] [place] [facility] [address] [id number] [place] [address]- 0332 Nov, [facility] [address] [id number] [place] [address]- 1545 Nov, [facility] [place] [facility] [address] [id number] [place] [address]- 2480 October, [facility] [place] [facility] [address] [id number] [place] [address]- 0064 October, [facility] [place] [facility] [address] [id number] [place] [address]- 4826 October, [facility] [place] [facility] [address] [id number] [place] [address]- 7240 Sep, [facility] [place] [facility] [address] [id number] [place] [address]- 5306 Sep, [facility] [place] [facility] [address] [id number] [place] [address]- 6683 Sep, [facility] [place] [facility] [address] [id number] [place] [address]- 2807 Aug, [facility] [place] [facility] [address] [id number] [place] [address]- 9434 Aug, [facility] [place] [facility] [address] [id number] [place] [address]- 5662 Aug, [facility] [place] [facility] [address] [id number] [place] [address]- 5767 Aug, [facility] [place] [facility] [address] [id number] [place] [address]- 3220 Aug, [facility] [place] [facility] [address] [id number] [place] [address]- 5731 Jul, [facility] [place] [facility] [address] [id number] [place] [address]- 7966 16 Jul, 2011 [facility] [place] [facility] [address] [id number] [place] [address]- 9896 13 Jul, 2011 [facility] [place] [facility] [address] [id number] [place] [address]- 2769 09 Jul, 2011 [facility] [address] [id number] [place] [address]- 4852 Jul, [facility] [place] [facility] [address] [id number] [place] [address]- 1576 Jul, [facility] [address] [id number] [place] [address]- 6646 Jul, [facility] [place] [facility] [address] [id number] [place] [address], [place] [address]- 0050 Jul, [facility] [address] [id number] [place] [address], [place] [address]- 7231 Jun, [facility] [address] [id number] [place] [address]- 2187 Jun, [facility] [id number] [address]- 2236 May, [facility] [address] [id number] [place] [address]- 3141 May, [facility] [place] [facility] [id number] [address]- 2549 May, [facility] [address] [id number] [place] [address]- 6418 May, [facility] [place] [facility] [address] [id number] [place] [address]- 2690 Apr, [facility] [place] [facility] [address] [id number] [place] [address]- 8635 Apr, [facility] [place] [facility] [address] [id number] [place] [address]- 2945 Apr, [facility] [place] [facility] [address] [id number] [place] [address]- 6416 Mar, [facility] [place] [facility] [address] [id number] [place] [address]- 5886 Mar, [facility] [place] [facility] [address] [id number] [place] [address]- 9910 18 Mar, 2011 [facility] [place] [facility] [address] [id number] [place] [address]- 6286 2011 [facility] [place] [facility] [address] [id number] [place] [address]- 7231 Dec, [facility] [place] [facility] [address] [id number] [place] [address]- 4736 October, [facility] [place] [facility] [address] [id number] [place] [address]- 6694 28 May, 2010 [facility] [place] [facility] [address] [id number] [place] [address]- 9865 13 May, 2010 [facility] [place] [facility] [address] [id number] [place] [address]- 5513 13 May, 2010 [facility] [place] [facility] [address] [id number] [place] [address]- 4508 06 May, 2010 [facility] [place] [facility] [address] [id number] [place] [address]- 7986 Mar, [facility] [place] [facility] [address] [id number] [place] [address]- 4396 Mar, [facility] [place] [facility] [address] [id number] [place] [address]- 1561 31 May, 2009 [facility] [place] [facility] [address] [id number] [place] [address]- 2591 30 May, 2009 [facility] [place] [facility] [address] [id number] [place] [address]- 1022 May, [facility] [place] [facility] [address] [id number] [place] [address]- 5755 08 May, 2009 [facility] [place] [facility] [address] [id number] [place] [address]- 1606 Apr, [facility] [place] [facility] [address] [id number] [place] [address]- 2546 Apr, [facility] [address] [id number] [place] [address]- 2546 October, IMMUNIZATIONS No Known Immunizations SOCIAL HISTORY Never Assessed REASON FOR VISIT toes c/o AJAY Gaspar PLAN OF CARE VITAL SIGNS Height 64 in 2018-02-01 Weight 267.7 lbs 2018-02-01 Temperature 98.6 degrees Fahrenheit 2018-02-01 Heart Rate 82 bpm 2018-02-01 Respiratory Rate 22 2018-02-01 Oximetry 99 % 2018-02-01 BMI 45.95 kg/m2 2018-02-01 Blood pressure systolic 122 mmHg 2018-02-01 Blood pressure diastolic 62 mmHg 2018-02-01 MEDICATIONS Medication Instructions Dosage Frequency Start Date End Date Duration Status Meloxicam 7.5 MG Orally Once a day 1 tablet 24h Active Estradiol 0.5 MG Orally Once a day 1 tablet 24h Active Oxygen ... 2L with nasal cannula Active Simvastatin 40 mg Orally Once a day 1 tablet in the evening 24h 30 Active Cetirizine HCl 10 mg Orally Once a day 1 tablet 24h Jan, Jul, 30 day(s) Active Fluoxetine HCl 20 mg Orally Once a day 1 capsule in the morning 24h Aug 90 days Active Toviaz 4 MG Orally Once a day 1 tablet 24h Active Symbicort 160-4.5 MCG/ACT Inhalation Twice a day 2 puffs 12h 16 Jun, 2018 90 days Active Omeprazole 20 MG Orally Once a day 1 capsule 24h Jan, 30 day(s ) Active Guaifenesin 400 mg Orally every 4 hrs 1 tablet as needed 4h Jan, Active HydrOXYzine HCl 50 MG Orally 2 times a day 1 tablet 12h 30 days Active Ketorolac Tromethamine 10 mg Orally every 6 hrs 1 tablet with food or milk as needed 6h Jan, Jan, 5 day(s) Active Albuterol Sulfate (2.5 MG/3ML) 0.083% Inhalation every 6 hrs 3 ml as needed 6h Apr, Active Nebulizer - as directed for use with inhaled medications Mar, lifetime Active Gabapentin 300 MG Orally Three times a day 1 capsule 8h Active Montelukast Sodium 10 MG Orally Once a day 1 tablet in the evening 24h 90 days Active Nitrofurantoin Monohyd Macro 100 mg Orally Once a day 1 capsule with supper 24h Active Quinapril HCl 20 mg Orally Once a day 2 tablets 24h Active Ropinirole HCl 0.5 MG Orally Once a day 1 tablet 1 to 3 hours before bedtime 24h 30 days Active Ventolin HFA 108 (90 Base) MCG/ACT Inhalation every 4 hrs 2 puffs as needed 4h Dec, 90 days Active Cyclobenzaprine HCl 10 mg Orally Three times a day 1 tablet as needed for spasms 8h Active Ranitidine HCl 150 MG Orally 2 times a day 1 tablet 12h 30 days Active RESULTS No Results PROCEDURES Procedure Date Ordered Result Body Site [facility] VISIT ESTABLISHED PATIENT Feb 01, 2018 INSTRUCTIONS MEDICATIONS ADMINISTERED No Known Medications MEDICAL [...]
--- OUTSIDE RECORDS SUMMARY | 2018-03-17 11:05 | XMS REPORT ---
Author Author SUNITHA SALAZAR [facility] WALK IN [facility] Address [address] [place] [address] Care Team Providers Care Internet Marketing Consultant Name Role Phone SUNITHA SALAZAR Unavailable PROBLEMS Type Condition ICD9-CM Code XLY50-RT Code Onset Dates Condition Status SNOMED Code Problem Other chronic pain G89.29 Active 10858510 Problem On home oxygen therapy Z99.81 Active 880748380995 Problem Mild chronic obstructive pulmonary disease J44.9 Active 298160362 Problem COPD (chronic obstructive pulmonary disease) with chronic bronchitis J44.9 Active 338079262 Problem History of illicit drug use Z87.898 Active 538002194 Problem COPD exacerbation J44.1 Active 487165816 Problem Neuropathy G62.9 Active 449415159 Problem Essential hypertension I10 Active 37999835 Problem 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 Active 63711531 Problem Major depressive disorder, recurrent episode, moderate F33.1 Active 589854240 Problem Impaired circulation I99.9 Active 42262828 Problem 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 Active 40831885 Problem Snoring R06.83 Active 02815786 Problem MRSA (methicillin resistant staph aureus) culture positive Z22.322 Active 096293412 Problem Fatigue R53.83 Active 04282304 Problem Varicose veins of both lower extremities I83.93 Active 85923221 Problem Dysthymic disorder F34.1 Active 20612048 Problem Upper respiratory tract infection, unspecified type J06.9 Active 66665120 Problem Panic disorder without agoraphobia F41.0 Active 89697216 Problem Mild persistent asthma without complication J45.30 Active 048356141 ALLERGIES Substance Reaction Event Type Date Status Sulfamethoxazole-Trimethoprim Unknown Drug Allergy Jan, Active Codeine Phosphate swelling Drug Allergy Jan, Active ENCOUNTERS Encounter Location Date Diagnosis [facility] [address] [facility] [id number] [address] May, [facility] [id number] [place] [address] 33029- 6177 Feb, [facility] [id number] [place] [address] 15633- 8314 Feb, Skin fissures R23.4 ; Neuropathy G62.9 and Onychomycosis B35.1 [facility] [address] [address]- 6360 05 Feb, 2018 Dysthymic disorder F34.1 [facility] [id number] [place] [address] 09698- 0413 Feb, [facility] [id number] [place] [address] 46352- 8703 Jan, [facility] [id number] [place] [address] 29786- 7070 Jan, Abrasion of right elbow, initial encounter S50.311A ; Abrasion, right knee, initial encounter S80.211A and Sprain of other ligament of right ankle, initial encounter S93.491A [facility] [id number] [place] [address] 25327- 7306 Jan, [facility] WALK IN [facility] [id number] [place] [address] 54079 -6840 Jan, Injury of left ankle, initial encounter S99.912A ; Fall down stairs, initial encounter W10.8XXA and BMI 45.0-49.9, adult Z68.42 [facility] [id number] [place] [address] 98545- 6894 Jan, COPD exacerbation J44.1 [facility] [id number] [place] [address] 05782- 7940 Jan, Dysfunction of both eustachian 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 [facility] [id number] [place] [address] 44273- 4520 Jan, Bronchitis J40 and Acute suppurative otitis media of left ear without spontaneous rupture of tympanic membrane, recurrence not specified H66.002 [facility] [id number] [place] [address] 16826- 0960 Jan, [facility] [address] 14011- 2916 Jan, Bronchitis J40 and BMI 40.0-44.9, adult Z68.41 [facility] [address] 45056- 5769 Jan, [facility] [address] 85312- 9304 Dec, Gastric pain R10.9 [facility] [address] 05768- 0460 Dec, [facility] [address] 60124- 1014 Dec, History of illicit drug use Z87.898 ; Neuropathy G62.9 ; COPD (chronic obstructive pulmonary disease) with chronic bronchitis J44.9 and Acute pain of right knee M25.561 [facility] [address] 28138- 1029 Nov, [facility] [id number] [place] [address] 92604- 3522 Nov, Onychomycosis B35.1 and Contusion of left foot, subsequent encounter S90.32XD [facility] [id number] [place] [address] 74555- 9954 Nov, COPD exacerbation J44.1 [facility] [address] 10582- 3813 Sep, [facility] [address] 15542- 5610 Sep, Dysthymic disorder F34.1 ; Tobacco abuse Z72.0 ; Pain in right knee M25.561 ; Pain in left knee M25.562 ; Other chronic pain G89.29 and BMI 40.0-44.9, adult Z68.41 [facility] [address] 23424- 8779 Aug, Major depressive disorder, recurrent episode, moderate F33.1 and 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 [facility] [address] 52181- 8418 14 Aug, 2017 Dysthymic disorder F34.1 ; Non-pressure chronic ulcer of left thigh, unspecified ulcer stage L97.129 ; Tobacco abuse Z72.0 ; Mild chronic obstructive pulmonary disease J44.9 and Forgetfulness R68.[address] 87396- 3518 09 Aug, 2017 Onychomycosis B35.1 ; Fissure in skin of foot R23.4 and Foot callus L84 [facility] WALK IN [address] 26356 -3712 26 Jul, 2017 Right medial knee pain M25.561 ; Upper respiratory tract infection, unspecified type J06.9 and BMI 40.0-44.9, adult Z68.41 [facility] WALK IN [address] 51102 -0811 08 Jul, 2017 Nausea and vomiting, intractability of vomiting not specified, unspecified vomiting type R11.2 ; Left ear pain H92.02 and Gastric pain R10.[address] 93105- 8408 Apr, Encounter for immunization Z23 [address] 53691- 4970 Apr, Onychomycosis B35.1 ; Xerosis of skin L85.3 ; Neuropathy G62.9 and 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 41711- 1515 Jan, Onychomycosis B35.1 and Neuropathy G62.9 [facility] [address], [place] [address] 28[address] Dec, [facility] [address], [place] [address] 6516 Dec, [facility] [address], [place] [address] 2546 Nov, [facility] [address], [place] [address] 2546 Aug, [facility] [address], [place] [address] 2546 Aug, [facility] [address], [place] [address]- 8221 Jul, [facility] [address], [place] [address]- 6996 Jul, [facility] [address], [place] [address]- 2233 Jul, Decubitus ulcer of left thigh, stage 2 L89.892 [facility] [address], [place] [address] 2546 17 Jul, 2016 Decubitus ulcer of left thigh, stage 2 L89.892 [facility] [address], [place] [address]- 6606 17 Jul, 2016 [facility] [id number], [place] [address]- 2545 15 Jul, 2016 Decubitus ulcer of left thigh, stage 2 L89.892 [facility] [address], [place] [address] 2546 14 Jul, 2016 [facility] [id number], [place] [address]- 2546 13 Jul, 2016 Cellulitis of other specified site L03.818 ; Illicit drug use F19.90 and Decubitus ulcer of left thigh, stage 2 L89.892 [facility] [id number] [place] [address] 17269- 1120 Jul, [facility] [id number] [place] [address] 54440- 7935 Jul, Cellulitis of right breast N61.0 [facility] [id number] [place] [address] 30354- 7812 Jun, [facility] [id number] [place] [address] 98729- 3114 Jun, [facility] [id number] [place] [address] 33857- 2607 Jun, Wheezing R06.2 and Arthralgia, unspecified joint M25.50 [facility] [id number] [place] [address] 62604- 0544 May, [facility] [address] 02815- 0810 May, [facility] [id number] [place] [address] 76956- 3243 May, [facility] [id number] [place] [address] 29636- 4554 May, Shortness of breath R06.02 [facility] [id number] [place] [address] 24941- 3976 May, Onychomycosis B35.1 and Fissure in skin of foot R23.4 [facility] [id number] [place] [address] 70194- 7910 Apr, [facility] [id number] [place] [address] 68512 -1673 18 Apr, 2016 Dizziness R42 [facility] [id number] [place] [address] 78822- 5152 14 Apr, 2016 Shortness of breath R06.02 ; Essential hypertension I10 ; Dizziness R42 and On home oxygen therapy Z99.81 [facility] [address], [place] [address]- 6282 Apr, [facility] [id number] [place] [address] 60322- 1106 Apr, [facility] [address], [place] [address]- 0364 Apr, [facility] [id number] [place] [address] 62873- 8041 Apr, [facility] [id number] [place] [address] 45396- 5843 Apr, [facility] [id number] [place] [address] 60493- 3531 Apr, [facility] [id number] [place] [address] 11611- 9115 Apr, [facility] [id number] [place] [address] 88823- 1157 Mar, Mild chronic obstructive pulmonary disease J44.9 [facility] [id number] [place] [address] 85548- 5138 Mar, [facility] [address], [place] [address]- 1993 Mar, Epigastric pain R10.13 ; Low back pain M54.5 ; Other chronic pain G89.29 and Breast cancer screening Z12.39 [facility] [address], [place] [address]- 4023 Mar, [facility] [id number] [place] [address] 55745- 6677 Mar, [facility] [address], [place] [address]- 7418 Feb, [facility] [address], [place] [address]- 6875 Feb, [facility] [address], [place] [address]- 8744 02 Feb, 2016 Fissure in skin of foot R23.4 and Onychomycosis B35.1 [facility] [address] [place] [address] 00056- 0633 Jan, 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 [facility] [id number] [place] [address] 35356- 0564 Dec, 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 [facility] [id number] [place] [address] 33216- 7172 Dec, Mild persistent asthma without complication J45.30 ; Dysthymic disorder F34.1 and Upper respiratory tract infection, unspecified type J06.9 [facility] [id number] [place] [address] 79917- 1408 Nov, 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 [facility] [id number] [place] [address] 59845- 2090 October, 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 [facility] [id number] [place] [address] 74121- 5304 Sep, Panic disorder without agoraphobia F41.0 ; 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 and Dysthymic disorder F34.1 [facility] [address] [place] [address] 35302- 6224 Sep, Panic attacks F41.0 [facility] [id number] [place] [address] 56146- 3045 Sep, [facility] [id number] [place] [address] 93213- 6366 Sep, Panic disorder without agoraphobia F41.0 ; Varicose veins of both lower extremities I83.93 and Fatigue R53.83 [facility] [id number] [place] [address] 28258- 9544 14 Apr, 2016 Fatigue R53.83 [facility] [address] [place] [address] 15571- 1275 Sep, [facility] [id number] [place] [address] 06214- 3171 Aug, [facility] [id number] [place] [address] 58289- 9876 Aug, [facility] [id number] [place] [address] 91524- 8162 Aug, 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 [facility] [id number] [place] [address] 94534- 2183 Aug, Panic disorder without agoraphobia F41.0 ; 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 and Dysthymic disorder F34.1 [facility] [id number] [place] [address] 78405- 1699 Aug, Shortness of breath R06.02 ; Panic attacks F41.0 ; COPD ( chronic obstructive pulmonary disease) J44.9 ; Tobacco abuse Z72.0 ; Family history of diabetes mellitus Z83.3 and Weight gain R63.5 [facility] [id number] [place] [address] 65024- 6346 Aug, [facility] [id number] [place] [address] 99870- 9278 Jul, [facility] [id number] [place] [address] 73057- 8781 Jun, Onychomycosis B35.1 ; Neuropathy G62.9 and Impaired circulation I99.9 [facility] [id number] [place] [address] 48203- 7485 09 Mar, 2015 Fissure in skin of foot R23.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 [facility] [id number] [place] [address] 98479- 2311 Feb, Family history of coronary arteriosclerosis V17.3 [facility] [address], [place] [address]- 1675 Feb, Allergic rhinitis due to pollen 477.0 ; Unspecified breast screening V76.10 ; Anxiety 300.00 and Family history of coronary arteriosclerosis V17.3 [facility] [address], [place] [address]- 8220 Jan, [facility] [id number] [place] [address] 92524- 8819 Dec, [facility] [id number] [place] [address] 24151- 8747 Dec, Onychomycosis 110.1 and Skin fissures 709.8 [facility] [id number] [place] [address] 86203- 5429 Sep, [facility] [id number] [place] [address] 81530- 2591 Sep, [facility] [address], [place] [address]- 0390 Aug, [facility] [id number] [place] [address] 53363- 6546 Aug, [facility] [address], [place] [address]- 9561 Jul, [facility] [address], [place] [address]- 4159 Jul, [facility] [address], [place] [address]- 5550 Jun, [facility] [id number] [place] [address] 78649- 1312 Jun, [facility] [address], [place] [address]- 1309 Jun, [facility] [id number] [place] [address] 53057- 2106 Jun, [facility] [place] [facility] [address] [id number] [place] [address]- 5593 Jun, [facility] [place] [facility] [address] [id number] [place] [address]- 4453 May, [facility] [place] [facility] [address] [id number] [place] [address]- 8194 May, [facility] [place] [facility] [address] [id number] [place] [address]- 9895 May, [facility] [place] [facility] [address] [id number] [place] [address]- 4426 May, [facility] [place] [facility] [address] [id number] [place] [address]- 4783 May, [facility] [place] [facility] [address] [id number] [place] [address]- 5285 May, [facility] [place] [facility] [address] [id number] [place] [address]- 6160 May, [facility] [place] [facility] [address] [id number] [place] [address]- 0266 May, [facility] [place] [facility] [address] [id number] [place] [address]- 0006 Apr, [facility] [place] [facility] [address] [id number] [place] [address]- 9505 Apr, [facility] [place] [facility] [address] [id number], [place] [address]- 7878 Apr, [facility] [place] [facility] [address] [id number] [place] [address]- 9303 Apr, [facility] [place] [facility] [address] [id number] [place] [address]- 4060 Apr, [facility] [place] [facility] [address] [id number] [place] [address]- 8210 Apr, [facility] [place] [facility] [address] [id number] [place] [address]- 4721 07 Apr, 2013 [facility] [place] [facility] [address] [id number] [place] [address]- 6955 Apr, [facility] [place] [facility] [address] [id number] [place] [address]- 2551 Apr, [facility] [place] [facility] [address] [id number] [place] [address]- 6216 Apr, [facility] [place] [facility] [address] [id number] [place] [address]- 2180 Mar, [facility] [place] [facility] [address] [id number] [place] [address]- 2946 Mar, [facility] [place] [facility] [address] [id number] [place] [address]- 5804 Mar, [facility] [place] [facility] [address] [id number] [place] [address]- 3655 Mar, [facility] [place] [facility] [address] [id number] [place] [address]- 3749 Mar, [facility] [place] [facility] [address] [id number] [place] [address]- 8377 Mar, [facility] [place] [facility] [address] [id number] [place] [address]- 1827 Mar, [facility] [place] [facility] [address] [id number] [place] [address]- 1067 Mar, [facility] [place] [facility] [address] [id number] [place] [address]- 3608 24 Mar, 2014 [facility] [place] [facility] [address] [id number] [place] [address]- 2513 Mar, [facility] [place] [facility] [address] [id number] [place] [address]- 0089 Mar, [facility] [place] [facility] [address] [id number] [place] [address]- 2484 Mar, [facility] [place] [facility] [address] [id number] [place] [address]- 0910 22 Mar, 2013 [facility] [place] [facility] [address] [id number] [place] [address]- 7345 22 Mar, 2014 [facility] [place] [facility] [address] [id number] [place] [address]- 8335 22 Mar, 2014 [facility] [place] [facility] [address] [id number] [place] [address]- 1257 20 Mar, 2014 [facility] [place] [facility] [address] [id number] [place] [address]- 3841 20 Mar, 2014 [facility] [place] [facility] [address] [id number] [place] [address]- 8752 16 Mar, 2014 [facility] [place] [facility] [address] [id number] [place] [address]- 1536 16 Mar, 2014 [facility] [place] [facility] [address] [id number], [place] [address]- 8299 15 Mar, 2014 [facility] [place] [facility] [address] [id number] [place] [address]- 5216 14 Mar, 2014 [facility] [place] [facility] [address] [id number], [place] [address]- 5191 14 Mar, 2014 [facility] [place] [facility] [address] [id number], [place] [address]- 5460 14 Mar, 2014 [facility] [place] [facility] [address] [id number], [place] [address]- 9385 14 Mar, 2014 [facility] [place] [facility] [address] [id number], [place] [address]- 7772 09 Mar, 2014 [facility] [place] [facility] [address] [id number], [place] [address]- 7999 09 Mar, 2014 [facility] [place] [facility] [address] [id number], [place] [address]- 9240 09 Mar, 2014 [facility] [place] [facility] [address] [id number], [place] [address]- 1378 Mar, [facility] [place] [facility] [address] [id number] [place] [address]- 7007 30 Feb, 2013 [facility] [place] [facility] [address] [id number] [place] [address]- 2376 30 Feb, 2013 [facility] [place] [facility] [address] [id number] [place] [address]- 2648 30 Feb, 2013 [facility] [place] [facility] [address] [id number] [place] [address]- 8777 30 Feb, 2013 [facility] [place] [facility] [address] [id number] [place] [address]- 6392 Feb, 2013 [facility] [place] [facility] [address] [id number] [place] [address]- 9106 Feb, 2013 [facility] [place] [facility] [address] [id number] [place] [address]- 2852 Feb, 2013 [facility] [place] [facility] [address] [id number] [place] [address]- 6430 Feb, 2013 [facility] [place] [facility] [address] [id number] [place] [address]- 3363 Feb, 2013 [facility] [place] [facility] [address] [id number] [place] [address]- 5487 Feb, 2013 [facility] [place] [facility] [address] [id number] [place] [address]- 4564 Feb, 2013 [facility] [place] [facility] [address] [id number] [place] [address]- 2543 Feb, 2013 [facility] [place] [facility] [address] [id number] [place] [address]- 2826 Jan, [facility] [place] [facility] [address] [id number] [place] [address]- 8194 Jan, [facility] [place] [facility] [address] [id number] [place] [address] Jan, [facility] [place] [facility] [address] [id number] [place] [address] Jan, [facility] [place] [facility] [address] [id number] [place] [address] Jan, [facility] [place] [facility] [address] [id number] [place] [address] Jan, [facility] [place] [facility] [address] [id number] [place] [address] Jan, [facility] [place] [facility] [address] [id number] [place] [address] Jan, [facility] [place] [facility] [address] [id number] [place] [address] Jan, [facility] [place] [facility] [address] [id number] [place] [address] Jan, [facility] [place] [facility] [address] [id number] [place] [address] Jan, [facility] [place] [facility] [address] [id number] [place] [address] Jan, [facility] [place] [facility] [address] [id number] [place] [address] Jan, [facility] [place] [facility] [address] [id number] [place] [address] Dec, [facility] [place] [facility] [address] [id number] [place] [address] Dec, [facility] [place] [facility] [address] [id number] [place] [address] Dec, [facility] [place] [facility] [address] [id number] [place] [address] Dec, [facility] [place] [facility] [address] [id number] [place] [address] Dec, [facility] [place] [facility] [address] [id number] [place] [address] Dec, [facility] [place] [facility] [address] [id number] [place] [address] Dec, [facility] [place] [facility] [address] [id number] [place] [address] Dec, [facility] [place] [facility] [address] [id number] [place] [address] Dec, [facility] [place] [facility] [address] [id number] [place] [address] Dec, [facility] [place] [facility] [address] [id number] [place] [address] Dec, [facility] [place] [facility] [address] [id number] [place] [address] Dec, [facility] [place] [facility] [address] [id number] [place] [address]- [address] Dec, [facility] [place] [facility] [address] [id number] [place] [address]- [address] Dec, [facility] [place] [facility] [address] [id number] [place] [address] Dec, [facility] [place] [facility] [address] [id number] [place] [address]- [address] Dec, [facility] [place] [facility] [address] [id number] [place] [address] Dec, [facility] [place] [facility] [address] [id number] [place] [address] Dec, [facility] [place] [facility] [address] [id number] [place] [address] Nov, [facility] [place] [facility] [address] [id number] [place] [address] Nov, [facility] [place] [facility] [address] [id number] [place] [address] Nov, [facility] [place] [facility] [address] [id number] [place] [address] Nov, [facility] [place] [facility] [address] [id number] [place] [address] Nov, [facility] [place] [facility] [address] [id number] [place] [address] Nov, [facility] [place] [facility] [address] [id number] [place] [address] Nov, [facility] [place] [facility] [address] [id number] [place] [address] Nov, [facility] [place] [facility] [address] [id number] [place] [address] Nov, [facility] [facility] [address] [id number] [place] [address] Nov, [facility] [place] [facility] [address] [id number] [place] [address] Nov, [facility] [place] [facility] [address] [id number] [place] [address] Nov, [facility] [place] [facility] [address] [id number] [place] [address] Nov, [facility] [place] [facility] [address] [id number] [place] [address] Nov, [facility] [place] [facility] [address] [id number] [place] [address] Nov, [facility] [place] [facility] [address] [id number] [place] [address] Nov, [facility] [place] [facility] [address] [id number] [place] [address] Nov, [facility] [place] [facility] [address] [id number] [place] [address] Nov, [facility] [place] [facility] [address] [id number] [place] [address] Nov, [facility] [place] [facility] [address] [id number] [place] [address] Nov, [facility] [place] [facility] [address] [id number] [place] [address] October, [facility] [place] [facility] [address] [id number] [place] [address] 8463 October, [facility] [place] [facility] [address] [id number] [place] [address] 7939 October, [facility] [place] [facility] [address] [id number] [place] [address] October, [facility] [place] [facility] [address] [id number] [place] [address] 60[address] Sep, [facility] [address] [id number] [place] [address] 9316 Sep, [facility] [place] [facility] [address] [id number] [place] [address]- 4[address] Sep, [facility] [place] [facility] [address] [id number] [place] [address]- 2366 Sep, [facility] [place] [facility] [address] [id number] [place] [address]- 5451 Sep, [facility] [place] [facility] [address] [id number] [place] [address]- 6301 Sep, [facility] [place] [facility] [address] [id number] [place] [address]- 8585 Sep, [facility] [address] [id number] [place] [address]- 6412 Sep, [facility] [facility] [address] [id number] [place] [address]- 9177 Sep, [facility] [address] [id number] [place] [address]- 7664 Aug, [facility] [address] [id number] [place] [address]- 2612 Aug, [facility] [address] [id number] [place] [address]- 9849 Aug, [facility] [facility] [address] [id number] [place] [address] Aug, [facility] [address] [id number] [place] [address]- 5006 Aug, [facility] [address] [id number] [place] [address]- 7143 Aug, [facility] [facility] [address] [id number] [place] [address]- 2472 Aug, [facility] [address] [id number] [place] [address]- 7540 Aug, [facility] [address] [id number] [place] [address]- 6210 Jul, [facility] [address] [id number] [place] [address]- 0[address] Jul, [facility] [address] [id number] [place] [address]- 5925 Jun, [facility] [address] [id number] [place] [address]- 2067 Jun, [facility] [address] [id number], [place] [address] Jun, [facility] [address] [id number] [place] [address]- 9424 Jun, [facility] [address] [id number] [place] [address]- 7034 Jun, [facility] [address] [id number] [place] [address]- 6290 Jun, [facility] [address] [id number] [place] [address]- 0373 Jun, [facility] [address] [id number] [place] [address]- 9009 15 Jun, 2013 [facility] [address] [id number] [place] [address]- 6365 15 Jun, 2013 [facility] [address] [id number] [place] [address]- 1641 14 Jun, 2013 [facility] [address] [id number] [place] [address]- 6[address] Jun, [facility] [address] [id number] [place] [address]- 5891 Jun, [facility] [address] [id number] [place] [address]- 3439 May, [facility] [address] [id number] [place] [address]- 8625 May, [facility] [address] [id number] [place] [address]- 1578 31 May, 2013 [facility] [address] [id number] [place] [address]- 1306 31 May, 2013 [facility] [address] [id number] [place] [address]- 7681 May, [facility] [address] [id number] [place] [address]- 7721 31 May, 2013 [facility] [address] [id number] [place] [address]- 8515 26 May, 2013 [facility] [address] [id number] [place] [address] 2548 23 May, 2013 [facility] [address] [id number] [place] [address]- 5635 23 May, 2013 [facility] [address] [id number] [place] [address]- 2396 16 May, 2013 [facility] [address] [id number] [place] [address]- 9015 May, [facility] [address] [id number] [place] [address]- 9266 May, [facility] [address] [id number] [place] [address]- 1706 May, [facility] [address] [id number] [place] [address]- 5696 Apr, [facility] [address] [id number] [place] [address]- 8453 Apr, [facility] [address] [id number] [place] [address]- 5265 Mar, [facility] [address] [id number] [place] [address]- 7288 Mar, [facility] [address] [id number] [place] [address]- 6612 Feb, [facility] [address] [id number] [place] [address]- 6988 Feb, [facility] [address] [id number] [place] [address]- 7950 Feb, [facility] [address] [id number] [place] [address]- 8581 Feb, [facility] [address] [id number] [place] [address]- 0557 Jan, [facility] [address] [id number] [place] [address]- 4375 Jan, [facility] [address] [id number] [place] [address]- 5617 Jan, [facility] [address] [id number] [place] [address]- 8920 Jan, [facility] [address] [id number] [place] [address]- 8661 Jan, [facility] [address] [id number] [place] [address]- 0993 Jan, [facility] [address] [id number] [place] [address]- 4280 Dec, [facility] [address] [id number] [place] [address]- 6395 Dec, [facility] [address] [id number] [place] [address]- 3477 Dec, [facility] [address] [id number] [place] [address]- 7281 Dec, [facility] [address] [id number] [place] [address]- 7126 Nov, [facility] [address] [id number] [place] [address]- 2681 October, [facility] [address] [id number] [place] [address]- 0986 October, [facility] [address] [id number] [place] [address]- 5394 October, [facility] [address] [id number] [place] [address]- 4041 Sep, [facility] [address] [id number] [place] [address]- 6163 Sep, [facility] [address] [id number] [place] [address]- 3164 Jun, [facility] [address] [id number] [place] [address]- 1289 Jun, [facility] [address] [id number] [place] [address]- 4365 Jun, [facility] [address] [id number] [place] [address]- 6533 Apr, [facility] [address] [id number] [place] [address]- 9936 Apr, [facility] [address] [id number] [place] [address]- 6377 Apr, [facility] [address] [id number] [place] [address]- 5036 Apr, [facility] [address] [id number] [place] [address]- 2866 Mar, [facility] [address] [id number] [place] [address]- 7036 Mar, [facility] [address] [id number] [place] [address]- 0288 Mar, [facility] [address] [id number] [place] [address]- 6126 Mar, [facility] [address] [id number] [place] [address]- 8252 Feb, [facility] [address] [id number] [place] [address]- 1265 Feb, [facility] [address] [id number] [place] [address]- 1899 Feb, [facility] [address] [id number] [place] [address]- 8421 Jan, [facility] [address] [id number] [place] [address]- 8368 Jan, [facility] [address] [id number] [place] [address]- 8667 Jan, [facility] [address] [id number] [place] [address]- 5815 Jan, [facility] [address] [id number] [place] [address]- 0386 Dec, [facility] [address] [id number] [place] [address] 2546 Dec, [facility] [address] [id number] [place] [address]- 2991 Nov, [facility] [address] [id number] [place] [address]- 6464 Nov, [facility] [address] [id number] [place] [address]- 9437 October, [facility] [address] [id number] [place] [address]- 9580 October, [facility] [address] [id number] [place] [address]- 9709 October, [facility] [address] [id number] [place] [address]- 5392 Sep, [facility] [address] [id number] [place] [address]- 0720 Sep, [facility] [address] [id number] [place] [address]- 5883 Sep, [facility] [address] [id number] [place] [address]- 9662 Aug, [facility] [address] [id number] [place] [address]- 7960 Aug, [facility] [address] [id number] [place] [address]- 9440 Aug, [facility] [address] [id number] [place] [address]- 5730 Aug, [facility] [address] [id number] [place] [address]- 7389 Aug, [facility] [address] [id number] [place] [address]- 5229 Jul, [facility] [address] [id number] [place] [address]- 6926 16 Jul, 2011 [facility] [address] [id number] [place] [address]- 5976 13 Jul, 2011 [facility] [address] [id number] [place] [address]- 4358 09 Jul, 2011 [facility] [facility] [address] [id number] [place] [address]- 8186 Jul, [facility] [address] [id number] [place] [address]- 2546 06 Jul, 2011 [facility] [address] [id number] [place] [address] 2546 Jul, [facility] [address] [id number] [place] [address] 2548 Jul, [facility] [address] [id number] [place] [address]- 1443 Jun, [facility] [address] [id number] [place] [address]- 0032 Jun, [facility] [address] [facility] [id number] [place] [address]- 9705 May, [facility] [address] [id number] [place] [address]- 0493 May, [facility] [address] [facility] [id number] [place] [address]- 6689 May, [facility] [address] [facility] [id number] [place] [address]- 5667 May, [facility] [address] [facility] [id number] [place] [address]- 8950 Apr, [facility] [facility] [address] [id number] [place] [address] 2541 Apr, [facility] [address] [facility] [id number] [place] [address]- 2546 Apr, [facility] [address] [facility] [id number] [place] [address]- 2546 Mar, [facility] [address] [id number] [place] [address]- 2488 18 Mar, 2011 [facility] [address] [id number] [place] [address]- 6586 18 Mar, 2011 [facility] [facility] [address] [id number] [place] [address]- 0656 2011 [facility] [facility] [address] [id number] [place] [address]- 1836 Dec, [facility] [place] [facility] [address] [id number] [place] [address]- 4326 October, [facility] [facility] [address] [id number] [place] [address] 28 May, 2010 [facility] [facility] [address] [id number] [place] [address]- 6311 13 May, 2010 [facility] [facility] [address] [id number] [place] [address]- 5938 13 May, 2010 [facility] [place] [facility] [address] [id number], [place] [address]- 7846 06 May, 2010 [facility] [facility] [address] [id number] [place] [address]- 4224 Mar, [facility] [place] [facility] [address] [id number] [place] [address]- 3317 Mar, [facility] [place] [facility] [address] [id number], [place] [address]- 5309 31 May, 2009 [facility] [place] [facility] [address] [id number], [place] [address] 2543 30 May, 2009 [facility] [place] [facility] [address] [id number] [place] [address]- 2396 08 May, 2009 [facility] [place] [facility] [address] [id number], [place] [address]- 2230 08 May, 2009 [facility] [place] [facility] [address] [id number], [place] [address]- 9404 Apr, [facility] [place] [facility] [address] [facility] [id number] [place] [address]- 7426 Apr, [facility] [address] [facility] [id number] [place] [address]- 4732 October, IMMUNIZATIONS No Known Immunizations SOCIAL HISTORY Never Assessed REASON FOR VISIT recent fall-The patient was taking her dog out about an hour ago and slipped and fell down two steps. She has abrasions on her right knee and elbow and is complaining of left foot pain and swelling.--AJAY Chand PLAN OF CARE Activity Details Follow Up 4 Weeks, prn w/ Gino Sloan Reason:left ankle injury VITAL SIGNS Height 64 in 2018-01-31 Weight 268.4 lbs 2018-01-31 Temperature 97.0 degrees Fahrenheit 2018-01-31 Heart Rate 88 bpm 2018-01-31 Respiratory Rate 24 2018-01-31 BMI 46.07 kg/m2 2018-01-31 Blood pressure systolic 112 mmHg 2018-01-31 Blood pressure diastolic 68 mmHg 2018-01-31 MEDICATIONS Medication Instructions Dosage Frequency Start Date End Date Duration Status Nitrofurantoin Monohyd Macro 100 mg Orally Once a day 1 capsule with supper 24h Active Ventolin HFA 108 (90 Base) MCG/ACT Inhalation every 4 hrs 2 puffs as needed 4h Dec, 90 days Active Montelukast Sodium 10 MG Orally Once a day 1 tablet in the evening 24h 90 days Active Meloxicam 7.5 MG Orally Once a day 1 tablet 24h Active Cetirizine HCl 10 mg Orally Once a day 1 tablet 24h Jan, Jul, 30 day(s) Active Fluoxetine HCl 20 mg Orally Once a day 1 capsule in the morning 24h Aug 90 days Active Toviaz 4 MG Orally Once a day 1 tablet 24h Active Cyclobenzaprine HCl 10 mg Orally Three times a day 1 tablet as needed for spasms 8h Active Omeprazole 20 MG Orally Once a day 1 capsule 24h Jan, 30 day(s ) Active Ropinirole HCl 0.5 MG Orally Once a day 1 tablet 1 to 3 hours before bedtime 24h 30 days Active Quinapril HCl 20 mg Orally Once a day 2 tablets 24h Active Nebulizer - as directed for use with inhaled medications Mar, lifetime Active Oxygen ... 2L with nasal cannula Active Gabapentin 300 MG Orally Three times a day 1 capsule 8h Active HydrOXYzine HCl 50 MG Orally 2 times a day 1 tablet 12h 30 days Active Simvastatin 40 mg Orally Once a day 1 tablet in the evening 24h 30 Active Estradiol 0.5 MG Orally Once a day 1 tablet 24h Active Albuterol Sulfate (2.5 MG/3ML) 0.083% Inhalation every 6 hrs 3 ml as needed 6h Apr, Active Guaifenesin 400 mg Orally every 4 hrs 1 tablet as needed 4h 20 Jan, 2018 Active Symbicort 160-4.5 MCG/ACT Inhalation Twice a day 2 puffs 12h 16 Jun, 2018 90 days Active Ranitidine HCl 150 MG Orally 2 times a day 1 tablet 12h 30 days Active RESULTS Name Result Date Reference Range Xray : Ankle, Left, 3 views (IN HOUSE) 2018-01-31 PROCEDURES Procedure Date Ordered Result Body Site X-RAY EXAM OF ANKLE Jan 31, 2018 [facility] VISIT ESTABLISHED PATIENT Jan 31, 2018 INSTRUCTIONS MEDICATIONS ADMINISTERED No Known Medications [...]
--- OUTSIDE RECORDS SUMMARY | 2018-03-17 11:06 | XMS REPORT ---
Author Author THOMAS JENNINGS Organization [facility] Address [address] [place] [address] Care Team Providers Care Director Compensation Name Role Phone THOMAS JENNINGS Unavailable PROBLEMS Type Condition ICD9-CM Code BAL01-KD Code Onset Dates Condition Status SNOMED Code Problem Other chronic pain G89.29 Active 44732384 Problem On home oxygen therapy Z99.81 Active 278917333314 Problem Mild chronic obstructive pulmonary disease J44.9 Active 134523978 Problem COPD (chronic obstructive pulmonary disease) with chronic bronchitis J44.9 Active 208105965 Problem History of illicit drug use Z87.898 Active 037358635 Problem COPD exacerbation J44.1 Active 054298837 Problem Neuropathy G62.9 Active 260515951 Problem Essential hypertension I10 Active 23908525 Problem 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 Active 55130613 Problem Major depressive disorder, recurrent episode, moderate F33.1 Active 013082278 Problem Impaired circulation I99.9 Active 12925203 Problem 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 Active 52066251 Problem Snoring R06.83 Active 32350227 Problem MRSA (methicillin resistant staph aureus) culture positive Z22.322 Active 736275095 Problem Fatigue R53.83 Active 24702945 Problem Varicose veins of both lower extremities I83.93 Active 24873903 Problem Dysthymic disorder F34.1 Active 98797881 Problem Upper respiratory tract infection, unspecified type J06.9 Active 32704241 Problem Panic disorder without agoraphobia F41.0 Active 04012266 Problem Mild persistent asthma without complication J45.30 Active 803415290 ALLERGIES No Information ENCOUNTERS Encounter Location Date Diagnosis [facility] [address] [facility] [id number] [address] May, [facility] [address] [facility] [id number] [address] Feb, [place] [address] [id number] [place] [address] 14716- 2064 Feb, Skin fissures R23.4 ; Neuropathy G62.9 and Onychomycosis B35.1 [place] [address] [address]- 7390 Feb, Dysthymic disorder F34.1 [place] [address] [address]- 1856 Feb, [place] [address] 17[address]- 7350 Jan, [place] [address] [address]82- 3020 Jan, Abrasion of right elbow, initial encounter S50.311A ; Abrasion, right knee, initial encounter S80.211A and Sprain of other ligament of right ankle, initial encounter S93.491A [place] [address] [address]- [address] Jan, [facility] [address] [address] Jan, Injury of left ankle, initial encounter S99.912A ; Fall down stairs, initial encounter W10.8XXA and BMI 45.0-49.9, adult Z68.42 [place] [address] [address]- 9078 Jan, COPD exacerbation J44.1 [place] [address] 04235- 8134 13 Jan, 2018 Dysfunction of both eustachian 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 [place] [address] 56979- 4464 08 Jan, 2018 Bronchitis J40 and Acute suppurative otitis media of left ear without spontaneous rupture of tympanic membrane, recurrence not specified H66.002 [place] [address] [place] [address]- 5012 Jan, [facility] [address] [place] [id number] [place] [address] 10939- 8333 Jan, Bronchitis J40 and BMI 40.0-44.9, adult Z68.41 [facility] [address] [place] [id number] [place] [address] 89132- 7494 Jan, [facility] [address] [id number] [place] [address] 16269- 1853 Dec, Gastric pain R10.9 [facility] [address] [id number] [place] [address] 59861- 3417 Dec, [facility] [address] [place] [id number] [place] [address] 98723- 5606 Dec, History of illicit drug use Z87.898 ; Neuropathy G62.9 ; COPD (chronic obstructive pulmonary disease) with chronic bronchitis J44.9 and Acute pain of right knee M25.561 [facility] [address] [place] [id number] [place] [address] 05611- 8925 Nov, [facility] [address] [id number] [place] [address] 28281- 2969 Nov, Onychomycosis B35.1 and Contusion of left foot, subsequent encounter S90.32XD [facility] [address] [id number] [place] [address] 93055- 5873 Nov, COPD exacerbation J44.1 [facility] [address] [place] [id number] [place] [address] 12085- 5730 Sep, [facility] [id number] [place] [address] 24992- 5097 Sep, Dysthymic disorder F34.1 ; Tobacco abuse Z72.0 ; Pain in right knee M25.561 ; Pain in left knee M25.562 ; Other chronic pain G89.29 and BMI 40.0-44.9, adult Z68.41 [facility] [address] [id number] [place] [address] 16319- 2343 Aug, Major depressive disorder, recurrent episode, moderate F33.1 and 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 [place] [address] 09781- 1380 14 Aug, 2017 Dysthymic disorder F34.1 ; Non-pressure chronic ulcer of left thigh, unspecified ulcer stage L97.129 ; Tobacco abuse Z72.0 ; Mild chronic obstructive pulmonary disease J44.9 and Forgetfulness R68.89 [place] [address] 51156- 0086 Aug, Onychomycosis B35.1 ; Fissure in skin of foot R23.4 and Foot callus L84 [facility] [address] [address] Jul, Right medial knee pain M25.561 ; Upper respiratory tract infection, unspecified type J06.9 and BMI 40.0-44.9, adult Z68.41 [facility] [address] [address] -[address] Jul, Nausea and vomiting, intractability of vomiting not specified, unspecified vomiting type R11.2 ; Left ear pain H92.02 and Gastric pain R10.[address] [address]- 8919 Apr, Encounter for immunization Z23 [address] [address]- 6366 Apr, Onychomycosis B35.1 ; Xerosis of skin L85.3 ; Neuropathy G62.9 and 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 [place] [address] 40226- 5075 Jan, Onychomycosis B35.1 and Neuropathy G62.9 [place] [address] 39618- 9458 Dec, [facility] [address] [address] 0[address] Dec, [facility] [address] [place] [address]- 4858 Nov, [facility] [address] [address] Aug, [facility] [address] 8098 Aug, [facility] [address] [place] [address]- 2533 Jul, [facility] [address] [place] [address]- 2951 Jul, [facility] [address] [address]- 8278 Jul, Decubitus ulcer of left thigh, stage 2 L89.892 [facility] [address], [place] [address]- 0666 17 Jul, 2016 Decubitus ulcer of left thigh, stage 2 L89.892 [facility] [address] [address]- 3577 17 Jul, 2016 [facility] [id number] [address]- 8932 15 Jul, 2016 Decubitus ulcer of left thigh, stage 2 L89.892 [facility] [id number] [address]- 7722 14 Jul, 2016 [facility] [address] [address]- 4007 13 Jul, 2016 Cellulitis of other specified site L03.818 ; Illicit drug use F19.90 and Decubitus ulcer of left thigh, stage 2 L89.892 [facility] [id number] [address]- 2882 08 Jul, 2016 [facility] [id number] [place] [address] 99355- 9902 Jul, Cellulitis of right breast N61.0 [facility] [id number] [place] [address] 98766- 7137 Jun, [facility] [address] [id number] [place] [address] 51624- 0954 Jun, [facility] [address] 15796- 0613 Jun, Wheezing R06.2 and Arthralgia, unspecified joint M25.50 [place] [address] [id number] [place] [address] 91670- 0822 May, [place] [id number] [place] [address] 55900- 7938 May, [facility] [address] [id number] [place] [address] 02307- 6496 May, [facility] [id number] [place] [address] 42373- 9221 May, Shortness of breath R06.02 [place] [address] [id number] [place] [address] 70975- 0818 May, Onychomycosis B35.1 and Fissure in skin of foot R23.4 [place] [address] [id number] [place] [address] 18941- 4138 Apr, [facility] [id number] [place] [address] 83975 -4241 18 Apr, 2016 Dizziness R42 [place] [address] [id number] [place] [address] 38096- 9354 14 Apr, 2016 Shortness of breath R06.02 ; Essential hypertension I10 ; Dizziness R42 and On home oxygen therapy Z99.81 [place] [address] [id number] [place] [address] 45711- 1798 Apr, [facility] [address], [place] [address]- 3706 Apr, [facility] [id number] [place] [address] 43804- 0536 Apr, [facility] [id number] [place] [address] 95702- 1223 Apr, [facility] [id number] [place] [address] 80030- 1730 Apr, [facility] [id number] [place] [address] 96035- 8328 Apr, [facility] [id number] [place] [address] 73394- 4835 Apr, [facility] [id number] [place] [address] 54827- 8361 Mar, Mild chronic obstructive pulmonary disease J44.9 [facility] [id number] [place] [address] 22935- 4173 Mar, [facility] [id number] [place] [address] 52216- 7561 Mar, Epigastric pain R10.13 ; Low back pain M54.5 ; Other chronic pain G89.29 and Breast cancer screening Z12.39 [facility] [address] [place] [address] 37388- 0587 Mar, [facility] [address], [place] [address]- 9855 Mar, [facility] [id number] [place] [address] 03579- 5357 Feb, [facility] [id number] [place] [address] 68689- 8634 Feb, [facility] [address] [address]- 3357 Feb, 2016 Fissure in skin of foot R23.4 and Onychomycosis B35.1 [place] [address] [place] [address] 53247- 0073 Jan, 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 [place] [address] [id number] [place] [address] 52071- 2363 Dec, 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 [place] [address] [id number] [place] [address] 76888- 3202 Dec, Mild persistent asthma without complication J45.30 ; Dysthymic disorder F34.1 and Upper respiratory tract infection, unspecified type J06.9 [place] [address] [place] [id number] [place] [address] 37116- 2995 Nov, 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 [place] [address] [id number] [place] [address] 71790- 3074 October, 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 [place] [address] [id number] [place] [address] 62166- 6899 Sep, Panic disorder without agoraphobia F41.0 ; 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 and Dysthymic disorder F34.1 [place] [address] [place] [id number] [place] [address] 91451- 9127 Sep, Panic attacks F41.0 [place] [address] [id number] [place] [address] 35316- 6754 Sep, [place] [address] [id number] [place] [address] 97912- 5337 Sep, Panic disorder without agoraphobia F41.0 ; Varicose veins of both lower extremities I83.93 and Fatigue R53.83 [place] [address] [id number] [place] [address] 59024- 2053 Sep, Fatigue R53.83 [facility] [address] [id number] [place] [address] 93973- 5795 Sep, [place] [address] [place] [address] 49108- 3689 Aug, [place] [address] [id number] [place] [address] 52949- 4815 Aug, [place] [address] [id number] [place] [address] 27901- 4512 Aug, 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 [place] [address] [id number] [place] [address] 51978- 6245 Aug, Panic disorder without agoraphobia F41.0 ; 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 and Dysthymic disorder F34.1 [place] [address] [id number] [place] [address] 48632- 2667 Aug, Shortness of breath R06.02 ; Panic attacks F41.0 ; COPD ( chronic obstructive pulmonary disease) J44.9 ; Tobacco abuse Z72.0 ; Family history of diabetes mellitus Z83.3 and Weight gain R63.5 [place] [address] [address] [id number] [place] [address] 38747- 1392 Aug, [place] [address] [id number] [place] [address] 97817- 6266 Jul, [place] [address] [id number] [place] [address] 38399- 8936 Jun, Onychomycosis B35.1 ; Neuropathy G62.9 and Impaired circulation I99.9 [place] [address] [id number] [place] [address] 29304- 0106 Mar, Fissure in skin of foot R23.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 [place] [address] [place] [address] 89822- 1499 18 Feb, 2015 Family history of coronary arteriosclerosis V17.3 [place] [address] [id number] [place] [address] 13204- 2239 Feb, Allergic rhinitis due to pollen 477.0 ; Unspecified breast screening V76.10 ; Anxiety 300.00 and Family history of coronary arteriosclerosis V17.3 [facility] [address] [address]- 7396 Jan, [facility] [id number] [address]- 1618 Dec, [facility] [id number] [place] [address] 94737- 1006 Dec, Onychomycosis 110.1 and Skin fissures 709.8 [facility] [id number] [place] [address] 67255- 7526 Sep, [facility] [id number] [place] [address] 17443- 9395 Sep, [facility] [id number] [place] [address] 45023- 2404 Aug, [facility] [address], [place] [address]- 8727 Aug, [facility] [address] [address]- 1303 Jul, [facility] [address] [address]- 5500 Jul, [facility] [address], [place] [address]- 1834 Jun, [facility] [address] 8779 Jun, [facility] [id number] [place] [address] 117983- 6621 Jun, [facility] [address] 2412 Jun, [facility] [address] [place] [address] 38359- 7206 Jun, [facility] [place] [facility] [address] [id number] [place] [address]- 0919 May, [facility] [place] [facility] [address] [id number] [place] [address]- 6626 May, [facility] [place] [facility] [address] [facility] [id number] [place] [address]- 6770 May, [facility] [place] [facility] [address] [id number] [place] [address]- 2935 May, [facility] [place] [facility] [address] [id number] [place] [address]- 4851 May, [facility] [place] [facility] [address] [id number] [place] [address]- 5979 May, [facility] [place] [facility] [address] [id number] [place] [address]- 2884 May, [facility] [place] [facility] [address] [id number] [place] [address]- 3006 May, [facility] [place] [facility] [address] [id number] [place] [address]- 5857 Apr, [facility] [place] [facility] [address] [id number] [place] [address]- 6700 Apr, [facility] [place] [facility] [address] [id number] [address]- 5222 Apr, [facility] [place] [facility] [address] [id number], [place] [address]- 5027 Apr, [facility] [place] [facility] [address] [id number] [place] [address]- 9858 Apr, [facility] [place] [facility] [address] [id number], [place] [address]- 3555 Apr, [facility] [place] [facility] [address] [facility] [id number] [place] [address]- 1358 Apr, [facility] [place] [facility] [address] [id number] [place] [address]- 3535 Apr, [facility] [place] [facility] [address] [id number] [place] [address]- 9025 Apr, [facility] [place] [facility] [address] [id number] [place] [address]- 1488 Apr, [facility] [place] [facility] [address] [id number] [place] [address]- 5826 Mar, [facility] [place] [facility] [address] [id number] [place] [address]- 4992 Mar, [facility] [place] [facility] [address] [id number] [place] [address]- 4337 Mar, [facility] [place] [facility] [address] [id number] [place] [address]- 4808 Mar, [facility] [place] [facility] [address] [id number] [place] [address]- 6272 Mar, [facility] [place] [facility] [address] [id number] [place] [address]- 7467 Mar, [facility] [place] [facility] [address] [id number] [place] [address]- 8315 Mar, [facility] [place] [facility] [address] [id number] [place] [address]- 4768 Mar, [facility] [place] [facility] [address] [id number] [place] [address]- 5663 24 Mar, 2014 [facility] [place] [facility] [address] [id number] [place] [address]- 3127 Mar, [facility] [place] [facility] [address] [id number] [place] [address]- 5976 Mar, [facility] [place] [facility] [address] [id number] [place] [address]- 5416 Mar, [facility] [place] [facility] [address] [id number] [place] [address]- 8632 Mar, [facility] [place] [facility] [address] [id number] [place] [address]- 8188 Mar, 2013 [facility] [place] [facility] [address] [id number] [place] [address]- 8925 22 Mar, 2014 [facility] [place] [facility] [address] [id number] [place] [address]- 7494 20 Mar, 2014 [facility] [place] [facility] [address] [id number] [place] [address]- 4907 20 Mar, 2014 [facility] [place] [facility] [address] [id number] [place] [address]- 6130 16 Mar, 2014 [facility] [place] [facility] [address] [id number] [place] [address]- 2580 16 Mar, 2014 [facility] [place] [facility] [address] [id number] [place] [address]- 0176 15 Mar, 2014 [facility] [place] [facility] [address] [id number] [place] [address]- 9102 14 Mar, 2014 [facility] [place] [facility] [address] [id number] [place] [address]- 2621 14 Mar, 2014 [facility] [place] [facility] [address] [id number] [place] [address]- 3084 14 Mar, 2014 [facility] [place] [facility] [address] [id number] [place] [address]- 1960 14 Mar, 2014 [facility] [place] [facility] [address] [id number] [address]- 9312 Mar, [facility] [place] [facility] [address] [id number] [place] [address]- 4625 Mar, [facility] [place] [facility] [address] [id number] [place] [address]- 0526 Mar, [facility] [place] [facility] [address] [id number] [place] [address]- 7749 Mar, [facility] [place] [facility] [address] [id number] [address]- 3445 30 Feb, 2013 [facility] [place] [facility] [address] [id number] [place] [address] 2546 30 Feb, 2013 [facility] [place] [facility] [address] [id number] [place] [address] 2546 30 Feb, 2013 [facility] [place] [facility] [address] [id number] [place] [address] 2542 30 Feb, 2013 [facility] [place] [facility] [address] [id number] [place] [address] 2549 Feb, 2013 [facility] [place] [facility] [address] [id number] [place] [address]- 1376 Feb, 2013 [facility] [place] [facility] [address] [id number] [place] [address]- 2480 Feb, 2013 [facility] [place] [facility] [address] [id number] [place] [address] Feb, 2013 [facility] [place] [facility] [address] [id number] [place] [address] Feb, 2013 [facility] [place] [facility] [address] [id number] [place] [address] Feb, 2013 [facility] [place] [facility] [address] [id number] [place] [address] Feb, 2013 [facility] [place] [facility] [address] [id number] [place] [address] Feb, 2013 [facility] [place] [facility] [address] [id number] [place] [address] Jan, [facility] [place] [facility] [address] [id number] [place] [address] Jan, [facility] [place] [facility] [address] [id number] [place] [address] Jan, [facility] [place] [facility] [address] [id number] [place] [address] Jan, [facility] [place] [facility] [address] [id number] [place] [address] Jan, [facility] [place] [facility] [address] [id number] [place] [address] Jan, [facility] [place] [facility] [address] [id number] [place] [address] Jan, [facility] [place] [facility] [address] [id number] [place] [address] Jan, [facility] [place] [facility] [address] [id number] [place] [address] Jan, [facility] [place] [facility] [address] [id number] [place] [address] Jan, [facility] [place] [facility] [address] [id number] [place] [address] Jan, [facility] [place] [facility] [address] [id number] [place] [address] Jan, [facility] [place] [facility] [address] [id number] [place] [address] Jan, [facility] [place] [facility] [address] [id number] [place] [address] Dec, [facility] [place] [facility] [address] [id number] [place] [address] Dec, [facility] [place] [facility] [address] [id number] [place] [address] Dec, [facility] [place] [facility] [address] [id number] [place] [address] Dec, [facility] [place] [facility] [address] [id number] [place] [address] Dec, [facility] [place] [facility] [address] [id number] [place] [address] Dec, [facility] [place] [facility] [address] [id number] [place] [address] Dec, [facility] [place] [facility] [address] [id number] [place] [address]- [address] Dec, 2013 [facility] [place] [facility] [address] [id number] [place] [address]- [address] Dec, [facility] [place] [facility] [address] [id number] [place] [address]- [address] Dec, 2013 [facility] [place] [facility] [address] [id number] [place] [address]- [address] Dec, 2013 [facility] [place] [facility] [address] [id number] [place] [address] Dec, [facility] [place] [facility] [address] [id number] [place] [address] Dec, [facility] [place] [facility] [address] [id number] [place] [address] Dec, [facility] [place] [facility] [address] [id number] [place] [address] Dec, [facility] [place] [facility] [address] [id number] [place] [address] Dec, [facility] [place] [facility] [address] [id number] [place] [address] Dec, [facility] [place] [facility] [address] [id number] [place] [address] Dec, [facility] [place] [facility] [address] [id number] [place] [address] Nov, [facility] [place] [facility] [address] [id number] [place] [address] Nov, [facility] [place] [facility] [address] [id number] [place] [address] Nov, [facility] [place] [facility] [address] [id number] [place] [address] 9747 Nov, [facility] [place] [facility] [address] [id number] [place] [address] Nov, [facility] [place] [facility] [address] [id number] [place] [address] 9196 Nov, [facility] [place] [facility] [address] [id number] [place] [address] 6540 Nov, [facility] [place] [facility] [address] [id number] [place] [address]- 9066 Nov, [facility] [place] [facility] [address] [id number] [place] [address]- 9735 Nov, [facility] [place] [facility] [address] [id number] [place] [address] 6089 Nov, [facility] [place] [facility] [address] [id number] [place] [address] 3601 Nov, [facility] [place] [facility] [address] [id number] [place] [address]- 4408 Nov, [facility] [place] [facility] [address] [id number] [place] [address]- 4162 Nov, [facility] [place] [facility] [address] [id number] [place] [address]- 4025 Nov, [facility] [place] [facility] [address] [id number] [place] [address]- 1419 Nov, [facility] [place] [facility] [address] [id number] [place] [address]- 6201 Nov, [facility] [place] [facility] [address] [id number] [address]2 Nov, [facility] [place] [facility] [address] [id number] [place] [address]- 4193 Nov, [facility] [place] [facility] [address] [id number] [place] [address]- 0159 Nov, [facility] [place] [facility] [address] [id number] [place] [address]- 5523 Nov, [facility] [place] [facility] [address] [id number] [place] [address]- 3367 October, [facility] [place] [facility] [address] [id number] [place] [address]- 3185 October, [facility] [place] [facility] [address] [id number] [place] [address]- 0790 October, [facility] [place] [facility] [address] [id number] [place] [address]- 4848 October, [facility] [place] [facility] [address] [id number] [place] [address]- 5225 Sep, [facility] [place] [facility] [address] [id number] [place] [address]- 1161 Sep, [facility] [place] [facility] [address] [id number] [place] [address]- 0833 Sep, [facility] [place] [facility] [address] [id number] [place] [address]- 0249 Sep, [facility] [place] [facility] [address] [id number] [place] [address]- 1868 Sep, [facility] [place] [facility] [address] [id number] [place] [address]- 0395 Sep, [facility] [place] [facility] [address] [id number] [place] [address]- 8703 Sep, [facility] [place] [facility] [address] [id number] [place] [address]- 7995 Sep, [facility] [place] [facility] [address] [id number] [place] [address]- 7538 Sep, [facility] [place] [facility] [address] [id number] [place] [address]- 0854 Aug, [facility] [place] [facility] [address] [id number] [place] [address]- 6163 Aug, [facility] [place] [facility] [address] [id number] [place] [address]- 9717 Aug, [facility] [place] [facility] [address] [id number] [place] [address]- 9954 Aug, [facility] [place] [facility] [address] [id number] [place] [address]- 9764 Aug, [facility] [place] [facility] [address] [id number] [place] [address] Aug, [facility] [place] [facility] [address] [id number] [place] [address]- 6326 Aug, [facility] [place] [facility] [address] [id number] [place] [address]- 2880 Aug, [facility] [place] [facility] [address] [id number] [place] [address]- 5569 Jul, [facility] [place] [facility] [address] [id number] [place] [address]- 6831 Jul, [facility] [place] [facility] [address] [id number] [place] [address]- 5999 Jun, [facility] [place] [facility] [address] [id number] [place] [address]- 4804 Jun, [facility] [place] [facility] [address] [id number] [place] [address]- 6708 Jun, [facility] [place] [facility] [address] [id number] [place] [address]- 3439 Jun, [facility] [place] [facility] [address] [id number] [place] [address]- 4158 Jun, [facility] [place] [facility] [address] [id number] [place] [address]- 3198 Jun, [facility] [place] [facility] [address] [id number] [place] [address]- 7709 Jun, [facility] [place] [facility] [address] [id number] [place] [address]- 9436 Jun, [facility] [place] [facility] [address] [id number] [place] [address]- 2521 15 Jun, 2013 [facility] [address] [id number] [place] [address]- 1420 14 Jun, 2013 [facility] [address] [id number] [place] [address]- 1436 Jun, [facility] [address] [id number] [place] [address]- 8847 Jun, [facility] [address] [id number] [place] [address]- 2361 31 May, 2013 [facility] [address] [id number] [place] [address] 1973 May, [facility] [address] [id number] [place] [address]- 9037 May, [facility] [address] [id number] [place] [address]- 8990 31 May, 2013 [facility] [address] [id number] [place] [address]- 8349 31 May, 2013 [facility] [address] [id number] [place] [address]- 4110 31 May, 2013 [facility] [address] [id number] [place] [address]- 0767 26 May, 2013 [facility] [address] [id number] [place] [address] 2544 23 May, 2013 [facility] [address] [id number] [place] [address] 254 23 May, 2013 [facility] [address] [id number] [place] [address]- 0542 16 May, 2013 [facility] [address] [id number] [place] [address]- 8802 16 May, 2013 [facility] [address] [id number] [place] [address]- 3057 May, [facility] [place] [facility] [address] [id number] [place] [address]- 2555 May, [facility] [place] [facility] [address] [id number] [place] [address]- 7358 Apr, [facility] [place] [facility] [address] [id number] [place] [address]- 4555 Apr, [facility] [place] [facility] [address] [id number] [place] [address]- 2607 Mar, [facility] [place] [facility] [address] [id number] [place] [address]- 6020 Mar, [facility] [place] [facility] [address] [id number] [place] [address]- 1264 24 Feb, 2013 [facility] [place] [facility] [address] [id number] [place] [address]- 5860 Feb, [facility] [place] [facility] [address] [id number] [place] [address]- 3606 Feb, [facility] [place] [facility] [address] [id number] [place] [address]- 3226 Feb, [facility] [place] [facility] [address] [id number] [address]- 2369 Jan, [facility] [place] [facility] [address] [id number], [place] [address]- 1881 Jan, [facility] [place] [facility] [address] [id number], [place] [address]- 6923 Jan, [facility] [place] [facility] [address] [id number] [place] [address]- 1638 Jan, [facility] [place] [facility] [address] [id number][place] [address]- 5971 Jan, [facility] [place] [facility] [address] [id number], [place] [address]- 3979 Jan, [facility] [place] [facility] [address] [id number], [place] [address]- 1403 Dec, [facility] [address] [id number] [place] [address]- 6301 Dec, [facility] [place] [facility] [address] [id number] [place] [address]- 9653 Dec, [facility] [address] [id number] [place] [address]- 8801 Dec, [facility] [address] [id number] [place] [address]- 7511 Nov, [facility] [address] [id number] [place] [address]- 4190 October, [facility] [address] [id number] [place] [address]- 9853 October, [facility] [address] [id number] [place] [address]- 3670 October, [facility] [address] [id number] [place] [address]- 2114 Sep, [facility] [address] [id number] [place] [address]- 3542 Sep, [facility] [place] [facility] [address] [id number] [place] [address]- 4128 Jun, [facility] [address] [id number] [place] [address]- 6889 Jun, [facility] [place] [facility] [address] [id number] [place] [address]- 0633 Jun, [facility] [place] [facility] [address] [id number] [place] [address]- 5767 Apr, [facility] [place] [facility] [address] [id number] [place] [address]- 9039 Apr, [facility] [place] [facility] [address] [id number] [place] [address]- 9753 Apr, [facility] [place] [facility] [address] [id number] [place] [address]- 5006 Apr, [facility] [place] [facility] [address] [id number] [place] [address]- 3115 Mar, [facility] [place] [facility] [address] [id number] [place] [address]- 0766 Mar, [facility] [place] [facility] [address] [id number] [place] [address]- 9876 Mar, [facility] [place] [facility] [address] [id number] [place] [address]- 8542 Mar, [facility] [place] [facility] [address] [id number] [place] [address]- 7284 Feb, [facility] [place] [facility] [address] [id number] [place] [address]- 9488 Feb, [facility] [place] [facility] [address] [id number] [place] [address]- 8986 Feb, [facility] [place] [facility] [address] [id number] [place] [address]- 9728 Jan, [facility] [place] [facility] [address] [id number] [place] [address]- 4596 Jan, [facility] [place] [facility] [address] [id number] [place] [address]- 6151 Jan, [facility] [place] [facility] [address] [id number] [place] [address]- 2201 Jan, [facility] [place] [facility] [address] [id number] [place] [address]- 0397 Dec, [facility] [place] [facility] [address] [id number] [place] [address]- 5416 Dec, [facility] [place] [facility] [address] [id number] [place] [address]- 2546 Nov, [facility] [place] [facility] [address] [id number] [place] [address]- 1019 Nov, [facility] [place] [facility] [address] [id number] [place] [address]- 0133 October, [facility] [place] [facility] [address] [id number] [place] [address]- 2238 October, [facility] [place] [facility] [address] [id number] [place] [address]- 5917 October, [facility] [place] [facility] [address] [id number] [place] [address]- 4713 Sep, [facility] [place] [facility] [address] [id number] [place] [address]- 5835 Sep, [facility] [place] [facility] [address] [id number] [place] [address]- 5236 Sep, [facility] [place] [facility] [address] [facility] [id number] [place] [address]- 3824 Aug, [facility] [place] [facility] [address] [id number] [place] [address]- 6811 Aug, [facility] [place] [facility] [address] [id number] [place] [address]- 5786 Aug, [facility] [place] [facility] [address] [facility] [id number] [place] [address]- 9605 Aug, [facility] [place] [facility] [address] [id number] [place] [address]- 7366 Aug, [facility] [place] [facility] [address] [id number], [place] [address]- 4195 Jul, [facility] [place] [facility] [address] [id number] [place] [address]- 8238 16 Jul, 2011 [facility] [place] [facility] [address] [id number] [place] [address]- 2656 Jul, [facility] [place] [facility] [address] [facility] [id number] [place] [address]- 8496 Jul, [facility] [place] [facility] [address] [id number] [place] [address]- 4326 07 Jul, 2011 [facility] [address] [id number] [place] [address]- 0236 Jul, [facility] [place] [facility] [address] [id number] [place] [address]- 2546 Jul, [facility] [place] [facility] [address] [id number] [place] [address]- 1466 Jul, [facility] [place] [facility] [address] [id number] [place] [address]- 4735 Jun, [facility] [place] [facility] [address] [id number] [place] [address]- 4800 Jun, [facility] [place] [facility] [address] [facility] [id number] [place] [address]484 May, [facility] [place] [facility] [address] [id number] [place] [address]- 9966 May, [facility] [place] [facility] [address] [id number] [place] [address]- 5648 May, [facility] [place] [facility] [address] [facility] [id number] [place]2 May, [facility] [place] [facility] [address] [facility] [id number] [place] [address]- 2168 Apr, [facility] [place] [facility] [address] [id number] [place] [address]- 3312 Apr, [facility] [place] [facility] [address] [id number] [place] [address]- 8694 Apr, [facility] [place] [facility] [address] [facility] [id number] [place] [address]- 5496 Mar, [facility] [place] [facility] [address] [id number] [place] [address]- 0386 Mar, [facility] [place] [facility] [address] [facility] [id number] [place] [address]- 3023 18 Mar, 2011 [facility] [place] [facility] [address] [id number] [place] [address]- 3442 2011 [facility] [place] [facility] [address] [id number] [place] [address]- 9116 Dec, [facility] [place] [facility] [address] [id number] [place] [address]- 6121 October, [facility] [place] [facility] [address] [id number] [place] [address]- 4596 28 May, 2010 [facility] [place] [facility] [address] [id number] [place] [address]- 3298 13 May, 2010 [facility] [place] [facility] [address] [id number] [place] [address]- 2986 13 May, 2010 [facility] [place] [facility] [address] [id number] [place] [address]- 7936 May, [facility] [place] [facility] [address] [id number] [place] [address]- 8312 Mar, [facility] [place] [facility] [address] [id number] [place] [address]- 8347 Mar, [facility] [place] [facility] [address] [id number] [place] [address]- 6465 31 May, 2009 [facility] [place] [facility] [address] [id number], [place] [address]- 7304 30 May, 2009 [facility] [place] [facility] [address] [id number], [place] [address]- 4031 08 May, 2009 [facility] [place] [facility] [address] [id number] [place] [address]- 5625 May, [facility] [place] [facility] [address] [id number], [place] [address]- 8794 Apr, [facility] [place] [facility] [address] [id number] [place] [address]- 2691 Apr, [facility] [place] [facility] [address] [facility] [id number] [place] [address]- 8240 October, IMMUNIZATIONS No Known Immunizations SOCIAL HISTORY Never Assessed REASON FOR VISIT Triage PLAN OF CARE VITAL SIGNS MEDICATIONS Unknown [...]
--- OUTSIDE RECORDS SUMMARY | 2018-03-17 11:07 | XMS REPORT ---
Author Author THOMAS JENNINGS Organization [facility] Address [address] [place] [address] Care Team Providers Care Loan Servicing Officer Name Role Phone MICHAELA THOMAS Unavailable PROBLEMS Type Condition ICD9-CM Code IBZ43-HM Code Onset Dates Condition Status SNOMED Code Problem Other chronic pain G89.29 Active 59128511 Problem On home oxygen therapy Z99.81 Active 742913132019 Problem Mild chronic obstructive pulmonary disease J44.9 Active 594370385 Problem COPD (chronic obstructive pulmonary disease) with chronic bronchitis J44.9 Active 263570657 Problem History of illicit drug use Z87.898 Active 152059195 Problem COPD exacerbation J44.1 Active 584229555 Problem Neuropathy G62.9 Active 764878596 Problem Essential hypertension I10 Active 32645714 Problem 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 Active 94801885 Problem Major depressive disorder, recurrent episode, moderate F33.1 Active 965597271 Problem Impaired circulation I99.9 Active 27693689 Problem 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 Active 54410157 Problem Snoring R06.83 Active 98411394 Problem MRSA (methicillin resistant staph aureus) culture positive Z22.322 Active 549408924 Problem Fatigue R53.83 Active 11860193 Problem Varicose veins of both lower extremities I83.93 Active 32405532 Problem Dysthymic disorder F34.1 Active 69537059 Problem Upper respiratory tract infection, unspecified type J06.9 Active 55290608 Problem Panic disorder without agoraphobia F41.0 Active 43831098 Problem Mild persistent asthma without complication J45.30 Active 864263087 ALLERGIES Substance Reaction Event Type Date Status Sulfamethoxazole-Trimethoprim Unknown Drug Allergy Jan, Active Codeine Phosphate swelling Drug Allergy Jan, Active ENCOUNTERS Encounter Location Date Diagnosis [facility] [address] [facility] [id number] [address] May, [facility] [id number] [place] [address] 03407- 9456 Feb, [facility] [address] [address]- 7557 Feb, Skin fissures R23.4 ; Neuropathy G62.9 and Onychomycosis B35.1 [facility] [address] [address]- 5472 05 Feb, 2018 Dysthymic disorder F34.1 [facility] [id number] [place] [address] 00746- 0321 Feb, [place] [address] [address]- [address]241 Jan, [place] [address] [address]42- 8804 Jan, Abrasion of right elbow, initial encounter S50.311A ; Abrasion, right knee, initial encounter S80.211A and Sprain of other ligament of right ankle, initial encounter S93.491A [place] [id number] [place] [address] 79642- 4731 Jan, [facility] [id number] [place] [address] 88328 -2267 Jan, Injury of left ankle, initial encounter S99.912A ; Fall down stairs, initial encounter W10.8XXA and BMI 45.0-49.9, adult Z68.42 [place] [id number] [place] [address] 76689- 4200 Jan, COPD exacerbation J44.1 [place] [address] 70939- 1230 Jan, Dysfunction of both eustachian 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 [place] [id number] [place] [address] 10084- 4618 Jan, Bronchitis J40 and Acute suppurative otitis media of left ear without spontaneous rupture of tympanic membrane, recurrence not specified H66.002 [place] [id number] [place] [address] 03561- 7872 Jan, [place] [address] 45358- 2218 Jan, Bronchitis J40 and BMI 40.0-44.9, adult Z68.41 [place] [address] 81671- 1008 Jan, [place] [address] 90117- 6876 Dec, Gastric pain R10.9 [place] [address] 14913- 3254 Dec, [place] [address] 24755- 2245 Dec, History of illicit drug use Z87.898 ; Neuropathy G62.9 ; COPD (chronic obstructive pulmonary disease) with chronic bronchitis J44.9 and Acute pain of right knee M25.561 [place] [address] 82622- 1547 Nov, [place] [id number] [place] [address] 27169- 2394 Nov, Onychomycosis B35.1 and Contusion of left foot, subsequent encounter S90.32XD [place] [id number] [place] [address] 43282- 7022 Nov, COPD exacerbation J44.1 [place] [id number] [place] [address] 14899- 4776 Sep, [place] [id number] [place] [address] 61798- 2503 Sep, Dysthymic disorder F34.1 ; Tobacco abuse Z72.0 ; Pain in right knee M25.561 ; Pain in left knee M25.562 ; Other chronic pain G89.29 and BMI 40.0-44.9, adult Z68.41 [place] [address] 86135- 9572 Aug, Major depressive disorder, recurrent episode, moderate F33.1 and 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 [place] [address] 65928- 0800 14 Aug, 2017 Dysthymic disorder F34.1 ; Non-pressure chronic ulcer of left thigh, unspecified ulcer stage L97.129 ; Tobacco abuse Z72.0 ; Mild chronic obstructive pulmonary disease J44.9 and Forgetfulness R68.89 [place] [address] 02683- 3777 Aug, Onychomycosis B35.1 ; Fissure in skin of foot R23.4 and Foot callus L84 [facility] [address] [address] -[address] Jul, Right medial knee pain M25.561 ; Upper respiratory tract infection, unspecified type J06.9 and BMI 40.0-44.9, adult Z68.41 [facility] [address] [address] -[address]74 08 Jul, 2017 Nausea and vomiting, intractability of vomiting not specified, unspecified vomiting type R11.2 ; Left ear pain H92.02 and Gastric pain R10.9 [place] [address] [address]04- 1969 Apr, Encounter for immunization Z23 [place] [address] 72419- 5905 Apr, Onychomycosis B35.1 ; Xerosis of skin L85.3 ; Neuropathy G62.9 and 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 [place] [address] 16396- 9475 Jan, Onychomycosis B35.1 and Neuropathy G62.9 [place] [address], [place] [address] 35[address] Dec, [facility] [address], [place] [address] 1046 Dec, [facility] [address], [place] [address] 5246 Nov, [facility] [address], [place] [address] 1456 Aug, [facility] [address], [place] [address] 4417 Aug, [facility] [address] [address] 4359 Jul, [facility] [address] [address] Jul, [facility] [address], [place] [address] 3810 Jul, Decubitus ulcer of left thigh, stage 2 L89.892 [facility] [address] [address] 17 Jul, 2016 Decubitus ulcer of left thigh, stage 2 L89.892 [facility] [address], [place] [address]- 3786 17 Jul, 2016 [facility] [id number], [place] [address]- 4499 15 Jul, 2016 Decubitus ulcer of left thigh, stage 2 L89.892 [facility] [id number], [place] [address]- 4176 14 Jul, 2016 [facility] [id number], [place] [address]- 9221 13 Jul, 2016 Cellulitis of other specified site L03.818 ; Illicit drug use F19.90 and Decubitus ulcer of left thigh, stage 2 L89.892 [place] [id number] [place] [address] 55164- 9118 Jul, [facility] [id number] [place] [address] 20235- 4258 Jul, Cellulitis of right breast N61.0 [facility] [id number] [place] [address] 21139- 4952 Jun, [place] [id number] [place] [address] 82946- 8719 Jun, [place] [id number] [place] [address] 76954- 4662 Jun, Wheezing R06.2 and Arthralgia, unspecified joint M25.50 [place] [id number] [place] [address] 20936- 9149 May, [place] [address] 41298- 6499 May, [place] [id number] [place] [address] 52034- 8723 May, [place] [id number] [place] [address] 01462- 6854 May, Shortness of breath R06.02 [place] [id number] [place] [address] 38745- 8950 May, Onychomycosis B35.1 and Fissure in skin of foot R23.4 [place] [id number] [place] [address] 69238- 6772 Apr, [facility] [id number] [place] [address] 81634 -2650 18 Apr, 2016 Dizziness R42 [place] [id number] [place] [address] 74629- 4058 14 Apr, 2016 Shortness of breath R06.02 ; Essential hypertension I10 ; Dizziness R42 and On home oxygen therapy Z99.81 [facility] [address] [id number], [place] [address]- 3598 Apr, [facility] [address] [facility] [id number], [place] [address]- 8501 Apr, [facility] [address] [facility] [id number], [place] [address]- 2526 Apr, [facility] [address] [facility] [id number], [place] [address]- 3500 Apr, [facility] [address] [facility] [id number], [place] [address]- 8695 Apr, [facility] [address] [facility] [id number], [place] [address]- 8292 Apr, [facility] [id number], [place] [address]- 3270 Apr, [facility] [address], [place] [address]- 8287 Mar, Mild chronic obstructive pulmonary disease J44.9 [facility] [address], [place] [address]- 4949 Mar, [facility] [address], [place] [address]- 9088 Mar, Epigastric pain R10.13 ; Low back pain M54.5 ; Other chronic pain G89.29 and Breast cancer screening Z12.39 [facility] [address], [place] [address]- 9712 Mar, [facility] [id number], [place] [address]- 2278 Mar, [facility] [id number], [place] [address]- 1979 Feb, [facility] [id number], [place] [address]- 4371 Feb, [facility] [address], [place] [address]- 9644 Feb, Fissure in skin of foot R23.4 and Onychomycosis B35.1 [place] [address] [place] [address] 93119- 1981 Jan, 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 [place] [address] [place] [address] 34456- 3776 Dec, 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 [place] [address] [place] [address] 67484- 6184 Dec, Mild persistent asthma without complication J45.30 ; Dysthymic disorder F34.1 and Upper respiratory tract infection, unspecified type J06.9 [place] [address] [place] [address] 38851- 9587 Nov, 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 [place] [id number] [place] [address] 10403- 0113 October, 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 [place] [id number] [place] [address] 86103- 6014 Sep, Panic disorder without agoraphobia F41.0 ; 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 and Dysthymic disorder F34.1 [place] [address] [place] [address] 58094- 3428 Sep, Panic attacks F41.0 [place] [id number] [place] [address] 91336- 2505 Sep, [place] [id number] [place] [address] 09501- 0335 Sep, Panic disorder without agoraphobia F41.0 ; Varicose veins of both lower extremities I83.93 and Fatigue R53.83 [place] [address], [place] [address]- 2390 Sep, Fatigue R53.83 [place] [id number] [place] [address] 40269- 8519 Sep, [place] [id number] [place] [address] 72475- 4615 Aug, [place] [id number] [place] [address] 04472- 6588 Aug, [place] [id number] [place] [address] 97805- 5884 Aug, 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 [place] [id number] [place] [address] 32838- 5744 Aug, Panic disorder without agoraphobia F41.0 ; 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 and Dysthymic disorder F34.1 [place] [id number] [place] [address] 99885- 8456 Aug, Shortness of breath R06.02 ; Panic attacks F41.0 ; COPD ( chronic obstructive pulmonary disease) J44.9 ; Tobacco abuse Z72.0 ; Family history of diabetes mellitus Z83.3 and Weight gain R63.5 [place] [id number] [place] [address] 70807- 1437 Aug, [place] [id number] [place] [address] 59029- 0828 Jul, [place] [id number] [place] [address] 05447- 2840 Jun, Onychomycosis B35.1 ; Neuropathy G62.9 and Impaired circulation I99.9 [place] [id number] [place] [address] 19819- 9409 Mar, Fissure in skin of foot R23.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 [place] [id number] [place] [address] 34527- 0121 Feb, Family history of coronary arteriosclerosis V17.3 [facility] [address], [place] [address]- 7087 15 Feb, 2015 Allergic rhinitis due to pollen 477.0 ; Unspecified breast screening V76.10 ; Anxiety 300.00 and Family history of coronary arteriosclerosis V17.3 [facility] [address] 9460 Jan, [facility] [id number] [place] [address] 02856- 4056 Dec, [facility] [id number] [place] [address] 37181- 4233 Dec, Onychomycosis 110.1 and Skin fissures 709.8 [facility] [address], [place] [address]- 9798 Sep, [facility] [id number] [place] [address] 87125- 3115 Sep, [facility] [address], [place] [address]- 3643 Aug, [facility] [address], [place] [address]- 2671 Aug, [facility] [address], [place] [address]- 3029 Jul, [facility] [address], [place] [address]- 5505 Jul, [facility] [address], [place] [address]- 1360 Jun, [facility] [address] 9437 Jun, [facility] [address], [place] [address]- 4852 Jun, [facility] [address] 5014 Jun, [facility] [place] [facility] [address] [id number] [place] [address]- 0830 Jun, [facility] [place] [facility] [address] [id number] [place] [address]- 0955 May, [facility] [place] [facility] [address] [id number] [place] [address]- 4621 May, [facility] [place] [facility] [address] [id number] [place] [address]- 3941 May, [facility] [place] [facility] [address] [id number] [place] [address]- 3459 May, [facility] [place] [facility] [address] [id number] [place] [address]- 3487 May, [facility] [place] [facility] [address] [id number] [place] [address]- 5351 May, [facility] [place] [facility] [address] [id number] [place] [address]- 2554 May, [facility] [place] [facility] [address] [id number] [place] [address]- 8268 May, [facility] [place] [facility] [address] [id number] [place] [address]- 9586 Apr, [facility] [place] [facility] [address] [id number] [place] [address]- 7405 Apr, [facility] [place] [facility] [address] [id number] [place] [address]- 1362 Apr, [facility] [place] [facility] [address] [id number] [place] [address]- 0236 Apr, [facility] [place] [facility] [address] [id number] [place] [address]- 9557 Apr, [facility] [place] [facility] [address] [id number] [place] [address]- 1221 Apr, [facility] [place] [facility] [address] [id number] [place] [address]- 6397 07 Apr, 2014 [facility] [place] [facility] [address] [id number] [place] [address]- 4763 Apr, [facility] [place] [facility] [address] [id number] [place] [address]- 5003 Apr, [facility] [place] [facility] [address] [id number] [place] [address]- 0679 Apr, [facility] [place] [facility] [address] [id number] [place] [address]- 7955 Mar, [facility] [place] [facility] [address] [id number] [place] [address]- 5153 Mar, [facility] [place] [facility] [address] [id number] [place] [address]- 0881 Mar, [facility] [place] [facility] [address] [id number] [place] [address]- 7033 Mar, [facility] [place] [facility] [address] [id number] [place] [address]- 7885 Mar, [facility] [place] [facility] [address] [id number] [place] [address]- 8518 Mar, [facility] [place] [facility] [address] [id number] [place] [address]- 5281 Mar, [facility] [place] [facility] [address] [id number] [place] [address]- 7925 Mar, [facility] [place] [facility] [address] [id number], [place] [address]- 1901 24 Mar, 2014 [facility] [place] [facility] [address] [id number] [place] [address]- 4419 Mar, [facility] [place] [facility] [address] [id number] [place] [address]- 4108 Mar, [facility] [place] [facility] [address] [id number], [place] [address]- 4115 Mar, [facility] [place] [facility] [address] [id number] [place] [address]- 1947 22 Mar, 2013 [facility] [place] [facility] [address] [id number] [place] [address]- 3533 22 Mar, 2013 [facility] [place] [facility] [address] [id number] [place] [address]- 9660 22 Mar, 2013 [facility] [place] [facility] [address] [id number] [place] [address]- 9304 20 Mar, 2013 [facility] [place] [facility] [address] [id number] [place] [address]- 9200 20 Mar, 2013 [facility] [place] [facility] [address] [id number] [place] [address]- 7571 16 Mar, 2013 [facility] [place] [facility] [address] [id number] [place] [address]- 7940 16 Mar, 2014 [facility] [place] [facility] [address] [id number] [place] [address]- 3033 15 Mar, 2014 [facility] [place] [facility] [address] [id number] [place] [address]- 5972 14 Mar, 2014 [facility] [place] [facility] [address] [id number] [place] [address]- 5656 14 Mar, 2014 [facility] [place] [facility] [address] [id number] [place] [address]- 9673 14 Mar, 2014 [facility] [place] [facility] [address] [id number] [place] [address]- 0800 14 Mar, 2014 [facility] [place] [facility] [address] [id number] [place] [address]- 7717 09 Mar, 2014 [facility] [place] [facility] [address] [id number] [place] [address]- 7385 09 Mar, 2014 [facility] [place] [facility] [address] [id number] [place] [address]- 7022 09 Mar, 2014 [facility] [place] [facility] [address] [id number] [place] [address]- 1678 Mar, 2013 [facility] [place] [facility] [address] [id number] [place] [address]- 1664 30 Feb, 2013 [facility] [place] [facility] [address] [id number] [place] [address]- 8456 30 Feb, 2013 [facility] [place] [facility] [address] [id number] [place] [address]- 4456 30 Feb, 2013 [facility] [place] [facility] [address] [id number] [place] [address]- 6892 30 Feb, 2013 [facility] [place] [facility] [address] [id number] [place] [address]- 3683 Feb, 2013 [facility] [place] [facility] [address] [id number] [place] [address] Feb, 2013 [facility] [place] [facility] [address] [id number] [place] [address] Feb, 2013 [facility] [place] [facility] [address] [id number], [place] [address] Feb, 2013 [facility] [place] [facility] [address] [id number] [place] [address] Feb, 2013 [facility] [place] [facility] [address] [id number] [place] [address] Feb, 2013 [facility] [place] [facility] [address] [id number], [place] [address] Feb, 2013 [facility] [place] [facility] [address] [id number], [place] [address] Feb, 2013 [facility] [place] [facility] [address] [id number], [place] [address] Jan, [facility] [place] [facility] [address] [id number], [place] [address] Jan, [facility] [place] [facility] [address] [id number], [place] [address] Jan, [facility] [place] [facility] [address] [id number] [place] [address] Jan, [facility] [place] [facility] [address] [id number] [place] [address] Jan, [facility] [place] [facility] [address] [id number] [place] [address] Jan, [facility] [place] [facility] [address] [id number] [place] [address]- 8265 Jan, [facility] [place] [facility] [address] [id number] [place] [address] Jan, [facility] [place] [facility] [address] [id number] [place] [address]- [address] Jan, [facility] [place] [facility] [address] [id number] [place] [address] Jan, [facility] [place] [facility] [address] [id number] [place] [address]- [address] Jan, [facility] [place] [facility] [address] [id number] [place] [address] Jan, [facility] [place] [facility] [address] [id number] [place] [address]- [address] Jan, [facility] [place] [facility] [address] [id number] [place] [address]255 Dec, [facility] [place] [facility] [address] [id number] [place] [address]- [address] Dec, [facility] [place] [facility] [address] [id number] [place] [address]74 Dec, [facility] [place] [facility] [address] [id number] [place] [address]- 1671 Dec, [facility] [place] [facility] [address] [id number] [place] [address]- 9627 Dec, [facility] [place] [facility] [address] [id number] [place] [address]- [address] Dec, [facility] [place] [facility] [address] [id number] [place] [address] Dec, 2013 [facility] [place] [facility] [address] [id number] [place] [address]- [address] Dec, 2013 [facility] [place] [facility] [address] [id number] [place] [address]- [address] Dec, 2013 [facility] [place] [facility] [address] [id number] [place] [address]- 3581 Dec, 2013 [facility] [place] [facility] [address] [id number] [place] [address]- [address] Dec, [facility] [place] [facility] [address] [id number] [place] [address]- [address]17 Dec, 2013 [facility] [place] [facility] [address] [id number] [place] [address]- 1075 Dec, 2013 [facility] [place] [facility] [address] [id number] [place] [address]- [address] Dec, 2013 [facility] [place] [facility] [address] [id number] [place] [address]- 0610 Dec, [facility] [place] [facility] [address] [id number] [place] [address]- 8827 Dec, [facility] [place] [facility] [address] [id number] [place] [address]- [address]134 Dec, [facility] [place] [facility] [address] [id number] [place] [address]- 40[address] Dec, [facility] [place] [facility] [address] [address] [id number] [place] [address] Nov, [facility] [place] [facility] [address] [id number] [place] [address] Nov, [facility] [place] [facility] [address] [id number] [place] [address] 4665 Nov, [facility] [place] [facility] [address] [id number] [place] [address] 8[address] Nov, [facility] [place] [facility] [address] [id number] [place] [address] 9541 Nov, [facility] [place] [facility] [address] [id number] [place] [address] 5931 Nov, [facility] [place] [facility] [address] [id number] [place] [address]- 1780 Nov, [facility] [place] [facility] [address] [id number] [place] [address] 9937 Nov, [facility] [place] [facility] [address] [id number] [place] [address] 8911 Nov, [facility] [place] [facility] [address] [id number] [place] [address]- 1444 Nov, [facility] [place] [facility] [address] [id number] [place] [address] 7598 Nov, [facility] [place] [facility] [address] [id number] [place] [address]- 2604 Nov, [facility] [place] [facility] [address] [id number] [place] [address]- 6526 Nov, [facility] [place] [facility] [address] [id number] [place] [address]- 5673 Nov, [facility] [place] [facility] [address] [id number] [place] [address]- 1124 Nov, [facility] [place] [facility] [address] [id number] [place] [address]- 1785 Nov, [facility] [place] [facility] [address] [id number] [place] [address]- 6936 Nov, [facility] [place] [facility] [address] [id number] [place] [address]- 7163 Nov, [facility] [place] [facility] [address] [id number] [place] [address] 2650 Nov, [facility] [place] [facility] [address] [id number] [place] [address]- 4588 Nov, [facility] [address] [id number] [place] [address] 5004 October, [facility] [place] [facility] [address] [id number] [place] [address] 0887 October, [facility] [address] [id number] [place] [address]- 6875 October, [facility] [place] [facility] [address] [id number] [place] [address]- 9628 October, [facility] [address] [id number] [place] [address]- 7457 Sep, [facility] [place] [facility] [address] [id number] [place] [address]- 6761 Sep, [facility] [address] [id number] [place] [address]- 9780 Sep, [facility] [address] [id number] [place] [address]- 2582 Sep, [facility] [place] [facility] [address] [id number] [place] [address]- 4546 Sep, [facility] [address] [id number] [place] [address]- 0085 Sep, [facility] [place] [facility] [address] [id number] [place] [address]- 9135 Sep, [facility] [place] [facility] [address] [id number] [place] [address]- 2058 Sep, [facility] [place] [facility] [address] [id number] [place] [address]- 8683 Sep, [facility] [place] [facility] [address] [id number] [place] [address] 3064 Aug, [facility] [place] [facility] [address] [id number] [place] [address]- 5698 Aug, [facility] [place] [facility] [address] [id number] [place] [address] 1218 Aug, [facility] [place] [facility] [address] [id number] [place] [address]- 2076 Aug, [facility] [place] [facility] [address] [id number] [place] [address]- 3633 Aug, [facility] [place] [facility] [address] [id number] [place] [address] 2190 Aug, [facility] [place] [facility] [address] [id number] [place] [address]- 0489 Aug, [facility] [place] [facility] [address] [id number] [place] [address]- 9186 Aug, [facility] [place] [facility] [address] [id number] [place] [address]- 9214 Jul, [facility] [place] [facility] [address] [id number] [place] [address]- 7909 Jul, [facility] [place] [facility] [address] [id number] [place] [address]- 6170 Jun, [facility] [place] [facility] [address] [id number] [place] [address]- 7504 Jun, [facility] [place] [facility] [address] [id number] [place] [address]- 6191 Jun, [facility] [place] [facility] [address] [id number] [place] [address]- 3901 Jun, [facility] [place] [facility] [address] [id number] [place] [address]- 4258 Jun, [facility] [place] [facility] [address] [id number] [place] [address]- 5665 Jun, [facility] [place] [facility] [address] [id number] [place] [address]- 8039 Jun, [facility] [place] [facility] [address] [id number] [place] [address]- 4380 15 Jun, 2013 [facility] [address] [id number] [place] [address]- 8936 15 Jun, 2013 [facility] [address] [id number] [place] [address]- 3592 14 Jun, 2013 [facility] [address] [id number] [place] [address]- 8077 02 Jun, 2013 [facility] [address] [id number] [place] [address]- 7490 02 Jun, 2013 [facility] [address] [id number] [place] [address]- 4715 31 May, 2013 [facility] [address] [id number] [place] [address]- 3205 31 May, 2013 [facility] [address] [id number] [place] [address]- 6753 31 May, 2013 [facility] [address] [id number] [place] [address]- 9624 31 May, 2013 [facility] [address] [id number] [place] [address]- 5068 31 May, 2013 [facility] [address] [id number] [place] [address]- 0483 31 May, 2013 [facility] [address] [id number] [place] [address]- 4907 26 May, 2013 [facility] [place] [facility] [address] [id number] [place] [address]- 254 23 May, 2013 [facility] [place] [facility] [address] [id number] [place] [address]- 4393 23 May, 2013 [facility] [place] [facility] [address] [id number] [place] [address] 16 May, 2013 [facility] [place] [facility] [address] [id number] [place] [address] 16 May, 2013 [facility] [place] [facility] [address] [id number] [place] [address]- 6131 May, [facility] [place] [facility] [address] [id number] [place] [address]- 6081 May, [facility] [place] [facility] [address] [id number] [place] [address]- 1329 Apr, [facility] [place] [facility] [address] [id number] [place] [address]- 7785 Apr, [facility] [place] [facility] [address] [id number] [place] [address]- 4089 Mar, [facility] [place] [facility] [address] [id number] [place] [address]- 1555 Mar, [facility] [place] [facility] [address] [id number] [place] [address]- 8312 Feb, [facility] [place] [facility] [address] [id number] [place] [address]- 1156 Feb, [facility] [place] [facility] [address] [id number] [place] [address]- 3796 Feb, [facility] [place] [facility] [address] [id number] [place] [address]- 2318 Feb, [facility] [place] [facility] [address] [id number] [place] [address]- 2410 Jan, [facility] [place] [facility] [address] [id number] [place] [address]- 7002 Jan, [facility] [place] [facility] [address] [id number] [place] [address]- 2432 Jan, [facility] [place] [facility] [address] [id number] [place] [address]- 2503 Jan, [facility] [place] [facility] [address] [id number] [place] [address]- 1470 Jan, [facility] [place] [facility] [address] [id number] [place] [address]- 4336 Jan, [facility] [address] [id number] [place] [address]- 9399 Dec, [facility] [place] [facility] [address] [id number] [place] [address]- 5819 Dec, [facility] [place] [facility] [address] [id number] [place] [address]- 4901 Dec, [facility] [place] [facility] [address] [id number] [place] [address]- 6695 Dec, [facility] [address] [id number] [place] [address]- 6517 Nov, [facility] [place] [facility] [address] [id number] [place] [address]- 7753 October, [facility] [place] [facility] [address] [id number] [place] [address]- 6861 October, [facility] [place] [facility] [address] [id number] [place] [address]- 6846 October, [facility] [address] [id number] [place] [address]- 3237 Sep, [facility] [place] [facility] [address] [id number] [place] [address]- 9585 Sep, [facility] [place] [facility] [address] [id number] [place] [address]- 3659 Jun, [facility] [place] [facility] [address] [id number] [place] [address]- 8700 Jun, [facility] [place] [facility] [address] [id number] [place] [address]- 0857 Jun, [facility] [place] [facility] [address] [id number] [place] [address]- 7606 Apr, [facility] [place] [facility] [address] [id number] [place] [address]- 2776 Apr, [facility] [place] [facility] [address] [id number] [place] [address]- 2546 Apr, [facility] [place] [facility] [address] [id number] [place] [address]- 2498 Apr, [facility] [place] [facility] [address] [id number] [place] [address]- 0676 Mar, [facility] [place] [facility] [address] [id number] [place] [address]- 3308 Mar, [facility] [place] [facility] [address] [id number] [place] [address]- 2482 Mar, [facility] [place] [facility] [address] [id number] [place] [address], [place] [address]- 6201 Mar, [facility] [place] [facility] [address] [id number] [place] [address]- 9378 Feb, [facility] [place] [facility] [address] [id number] [place] [address]- 8576 Feb, [facility] [place] [facility] [address] [id number] [place] [address]- 2668 Feb, [facility] [place] [facility] [address] [id number] [place] [address]- 5557 Jan, [facility] [place] [facility] [address] [id number] [place] [address]- 2939 Jan, [facility] [place] [facility] [address] [id number] [place] [address]- 1504 Jan, [facility] [place] [facility] [address] [id number] [place] [address]- 8026 Jan, [facility] [place] [facility] [address] [id number] [place] [address]- 4636 Dec, [facility] [place] [facility] [address] [id number] [place] [address]- 2546 Dec, [facility] [place] [facility] [address] [id number] [place] [address]- 8688 Nov, [facility] [address] [id number] [place] [address]- 4505 Nov, [facility] [place] [facility] [address] [id number] [place] [address]- 6340 October, [facility] [place] [facility] [address] [id number] [place] [address]- 7356 October, [facility] [place] [facility] [address] [id number] [place] [address]- 1916 October, [facility] [place] [facility] [address] [id number] [place] [address]- 4725 Sep, [facility] [place] [facility] [address] [id number] [place] [address]- 7192 Sep, [facility] [place] [facility] [address] [id number] [place] [address]- 7641 Sep, [facility] [place] [facility] [address] [id number] [place] [address]- 9588 Aug, [facility] [place] [facility] [address] [id number] [place] [address]- 4203 Aug, [facility] [place] [facility] [address] [id number] [place] [address]- 2992 Aug, [facility] [place] [facility] [address] [id number] [place] [address]- 2278 Aug, [facility] [place] [facility] [address] [id number], [place] [address]- 8512 Aug, [facility] [place] [facility] [address] [id number] [place] [address]- 9720 Jul, [facility] [place] [facility] [address] [id number] [place] [address]- 4196 16 Jul, 2011 [facility] [place] [facility] [address] [id number] [place] [address]- 0397 13 Jul, 2011 [facility] [place] [facility] [address] [id number] [place] [address]- 8870 09 Jul, 2011 [facility] [address] [id number] [place] [address]- 6267 Jul, [facility] [place] [facility] [address] [id number] [place] [address]- 7686 Jul, [facility] [address] [id number] [place] [address]- 7026 Jul, [facility] [place] [facility] [address] [id number] [place] [address], [place] [address]- 8701 Jul, [facility] [address] [facility] [id number] [place] [address], [place] [address]- 9411 Jun, [facility] [address] [facility] [id number] [place] [address]- 6853 Jun, [facility] [id number] [address]- 7769 May, [facility] [address] [facility] [id number] [place] [address]- 8184 May, [facility] [place] [facility] [id number] [address]- 5890 May, [facility] [address] [facility] [id number] [place] [address]- 7726 May, [facility] [place] [facility] [address] [facility] [id number] [place] [address]- 7100 Apr, [facility] [place] [facility] [address] [facility] [id number] [place] [address]- 3665 Apr, [facility] [place] [facility] [address] [facility] [id number] [place] [address]- 6221 Apr, [facility] [place] [facility] [address] [facility] [id number] [place] [address]- 2656 Mar, [facility] [place] [facility] [address] [facility] [id number] [place] [address]- 6389 Mar, [facility] [place] [facility] [address] [id number] [place] [address]- 4824 18 Mar, 2011 [facility] [place] [facility] [address] [id number] [place] [address]- 5295 2011 [facility] [place] [facility] [address] [id number] [place] [address]- 2595 Dec, [facility] [place] [facility] [address] [id number] [place] [address]- 3076 October, [facility] [place] [facility] [address] [id number] [place] [address]- 7867 28 May, 2010 [facility] [place] [facility] [address] [id number] [place] [address]- 4012 13 May, 2010 [facility] [place] [facility] [address] [id number] [place] [address]- 8319 13 May, 2010 [facility] [place] [facility] [address] [id number] [place] [address]- 1284 06 May, 2010 [facility] [place] [facility] [address] [id number] [place] [address]- 2208 Mar, [facility] [place] [facility] [address] [facility] [id number] [place] [address]- 9122 Mar, [facility] [place] [facility] [address] [id number], [place] [address]- 0645 31 May, 2009 [facility] [place] [facility] [address] [id number], [place] [address]- [address] 30 May, 2009 [facility] [place] [facility] [address] [id number] [place] [address]- 5838 May, [facility] [place] [facility] [address] [id number] [place] [address]- 7821 08 May, 2009 [facility] [place] [facility] [address] [id number], [place] [address]- 0693 Apr, [facility] [place] [facility] [address] [id number], [place] [address]- 4756 Apr, [facility] [address] [facility] [id number] [place] [address]- 8396 October, IMMUNIZATIONS No Known Immunizations SOCIAL HISTORY Never Assessed REASON FOR VISIT Fever, n/v, earache, sob and coughing. CAIR Garcia PLAN OF CARE VITAL SIGNS Height 64 in 2018-01-28 Weight 265 lbs 2018-01-28 Temperature 97.0 degrees Fahrenheit 2018-01-28 Heart Rate 81 bpm 2018-01-28 Respiratory Rate 22 2018-01-28 Oximetry 97 % 2018-01-28 BMI 45.48 kg/m2 2018-01-28 Blood pressure systolic 96 mmHg 2018-01-28 Blood pressure diastolic 66 mmHg 2018-01-28 MEDICATIONS Medication Instructions Dosage Frequency Start Date End Date Duration Status Simvastatin 40 mg Orally Once a day 1 tablet in the evening 24h 30 Active Estradiol 0.5 MG Orally Once a day 1 tablet 24h Active Oxygen ... 2L with nasal cannula Active Nitrofurantoin Monohyd Macro 100 mg Orally Once a day 1 capsule with supper 24h Active Cyclobenzaprine HCl 10 mg Orally Three times a day 1 tablet as needed for spasms 8h Active Fluoxetine HCl 20 mg Orally Once a day 1 capsule in the morning 24h Aug 90 days Active Montelukast Sodium 10 MG Orally Once a day 1 tablet in the evening 24h 90 days Active Symbicort 160-4.5 MCG/ACT Inhalation Twice a day 2 puffs 12h 16 Jun, 2018 90 days Active Ropinirole HCl 0.5 MG Orally Once a day 1 tablet 1 to 3 hours before bedtime 24h 30 days Active Gabapentin 300 MG Orally Three times a day 1 capsule 8h Active Ranitidine HCl 150 MG Orally 2 times a day 1 tablet 12h 30 days Active Toviaz 4 MG Orally Once a day 1 tablet 24h Active Albuterol Sulfate (2.5 MG/3ML) 0.083% Inhalation every 6 hrs 3 ml as needed 6h Apr, Active Nebulizer - as directed for use with inhaled medications Mar, lifetime Active Ventolin HFA 108 (90 Base) MCG/ACT Inhalation every 4 hrs 2 puffs as needed 4h Dec, 90 days Active PredniSONE 20 mg Orally Once a day 2 tablets 24h Jan, 05 days Not-Taking Guaifenesin 400 mg Orally every 4 hrs 1 tablet as needed 4h Jan, Active Quinapril HCl 20 mg Orally Once a day 2 tablets 24h Active Omeprazole 20 MG Orally Once a day 1 capsule 24h Jan, 30 day(s ) Active Cetirizine HCl 10 mg Orally Once a day 1 tablet 24h 13 Jan, 2018 Jul, 30 day(s) Active Meloxicam 7.5 MG Orally Once a day 1 tablet 24h Active HydrOXYzine HCl 50 MG Orally 2 times a day 1 tablet 12h 30 days Active RESULTS Name Result Date Reference Range Xray : Chest 2 View (IN HOUSE) 2018-01-28 CBC 2018-01-28 WHITE BLOOD CELL COUNT 7.1 3.8-10.8 RED BLOOD CELL COUNT 4.61 3.80-5.10 HEMOGLOBIN 13.4 11.7-15.5 HEMATOCRIT 40.5 35.0-45.0 MCV 87.9 80.0-100.0 MCH 29.1 27.0-33.0 MCHC 33.1 32.0-36.0 RDW 14.1 11.0-15.0 PLATELET COUNT 153 140-400 MPV 12.1 7.5-12.5 ABSOLUTE NEUTROPHILS 4494 [id number] ABSOLUTE LYMPHOCYTES 8943 [id number] ABSOLUTE MONOCYTES 767 200-950 ABSOLUTE EOSINOPHILS 99 15-500 ABSOLUTE BASOPHILS 28 0-200 NEUTROPHILS 63.3 LYMPHOCYTES 24.1 MONOCYTES 10.8 EOSINOPHILS 1.4 BASOPHILS 0.4 PROCEDURES Procedure Date Ordered Result Body Site X-RAY EXAM CHEST 2 VIEWS Jan 28, 2018 [facility] VISIT ESTABLISHED PATIENT Jan 28, 2018 LAB NOT BILLED BY [facility] Jan 28, 2018 INSTRUCTIONS MEDICATIONS ADMINISTERED No Known Medications [...]
--- OUTSIDE RECORDS SUMMARY | 2018-03-17 11:08 | XMS REPORT ---
Author Author THOMAS JENNINGS Organization [facility] Address [address] [place] [address] Care Team Providers Care Process Excellence Manager Name Role Phone MICHAELA THOMAS Unavailable PROBLEMS Type Condition ICD9-CM Code MKB72-DP Code Onset Dates Condition Status SNOMED Code Problem Other chronic pain G89.29 Active 33502389 Problem On home oxygen therapy Z99.81 Active 593605407333 Problem Mild chronic obstructive pulmonary disease J44.9 Active 875650482 Problem COPD (chronic obstructive pulmonary disease) with chronic bronchitis J44.9 Active 602068144 Problem History of illicit drug use Z87.898 Active 078280122 Problem COPD exacerbation J44.1 Active 999578001 Problem Neuropathy G62.9 Active 127678258 Problem Essential hypertension I10 Active 27225523 Problem 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 Active 54365128 Problem Major depressive disorder, recurrent episode, moderate F33.1 Active 323303928 Problem Impaired circulation I99.9 Active 06551702 Problem 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 Active 94903899 Problem Snoring R06.83 Active 94167433 Problem MRSA (methicillin resistant staph aureus) culture positive Z22.322 Active 586025012 Problem Fatigue R53.83 Active 03466109 Problem Varicose veins of both lower extremities I83.93 Active 00590689 Problem Dysthymic disorder F34.1 Active 88575789 Problem Upper respiratory tract infection, unspecified type J06.9 Active 43008590 Problem Panic disorder without agoraphobia F41.0 Active 28288071 Problem Mild persistent asthma without complication J45.30 Active 488181058 ALLERGIES Substance Reaction Event Type Date Status Sulfamethoxazole-Trimethoprim Unknown Drug Allergy Jan, Active Codeine Phosphate swelling Drug Allergy Jan, Active ENCOUNTERS Encounter Location Date Diagnosis [facility] [address] [facility] [id number] [address] Feb, [facility] [id number] [place] [address] 99788- 6747 Feb, [facility] [id number] [place] [address] 42267- 3062 Feb, Dysthymic disorder F34.1 [place] [id number] [place] [address] 28255- 8986 Feb, [place] [address] 13185- 4204 Jan, [facility] [id number] [place] [address] 35356- 6972 Jan, Abrasion of right elbow, initial encounter S50.311A ; Abrasion, right knee, initial encounter S80.211A and Sprain of other ligament of right ankle, initial encounter S93.491A [facility] [facility] [id number] [place] [address] 98990- 6279 Jan, [facility] [id number] [place] [address] 67669 -3543 Jan, Injury of left ankle, initial encounter S99.912A ; Fall down stairs, initial encounter W10.8XXA and BMI 45.0-49.9, adult Z68.42 [place] [id number] [place] [address] 12162- 5126 Jan, COPD exacerbation J44.1 [place] [address] 81610- 3753 Jan, Dysfunction of both eustachian 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 [place] [place] [id number] [place] [address] 53327- 3747 Jan, Bronchitis J40 and Acute suppurative otitis media of left ear without spontaneous rupture of tympanic membrane, recurrence not specified H66.002 [place] [place] [id number] [place] [address] 86825- 0411 Jan, [place] [id number] [address]- 4929 Jan, Bronchitis J40 and BMI 40.0-44.9, adult Z68.41 [place] [place] [id number] [place] [address] 97864- 6438 Jan, [facility] [id number] [place] [address] 82805- 7139 Dec, Gastric pain R10.9 [place] [place] [id number] [place] [address] 74117- 2747 Dec, [place] [id number] [place] [address] 08150- 6605 Dec, History of illicit drug use Z87.898 ; Neuropathy G62.9 ; COPD (chronic obstructive pulmonary disease) with chronic bronchitis J44.9 and Acute pain of right knee M25.561 [place] [id number] [place] [address] 15409- 8811 Nov, [place] [id number] [place] [address] 51148- 7907 15 Nov, 2017 Onychomycosis B35.1 and Contusion of left foot, subsequent encounter S90.32XD [place] [id number] [place] [address] 84104- 3988 Nov, COPD exacerbation J44.1 [place] [id number] [place] [address] 94480- 3525 Sep, [place] [id number] [place] [address] 40304- 2251 Sep, Dysthymic disorder F34.1 ; Tobacco abuse Z72.0 ; Pain in right knee M25.561 ; Pain in left knee M25.562 ; Other chronic pain G89.29 and BMI 40.0-44.9, adult Z68.41 [place] [address] [place] [address] 37919- 9623 Aug, Major depressive disorder, recurrent episode, moderate F33.1 and 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 [place] [id number] [place] [address] 01882- 4937 14 Aug, 2017 Dysthymic disorder F34.1 ; Non-pressure chronic ulcer of left thigh, unspecified ulcer stage L97.129 ; Tobacco abuse Z72.0 ; Mild chronic obstructive pulmonary disease J44.9 and Forgetfulness R68.[address] 03820- 2654 09 Aug, 2017 Onychomycosis B35.1 ; Fissure in skin of foot R23.4 and Foot callus L84 [facility] [address] [address]67 -[address]83 Jul, Right medial knee pain M25.561 ; Upper respiratory tract infection, unspecified type J06.9 and BMI 40.0-44.9, adult Z68.41 [facility] [address] 13353 -2380 Jul, Nausea and vomiting, intractability of vomiting not specified, unspecified vomiting type R11.2 ; Left ear pain H92.02 and Gastric pain R10.[address] 84712- 6612 Apr, Encounter for immunization Z23 [address] 74420- 6816 Apr, Onychomycosis B35.1 ; Xerosis of skin L85.3 ; Neuropathy G62.9 and 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 [place] [address] 55031- 3156 Jan, Onychomycosis B35.1 and Neuropathy G62.9 [place] [address] 60829- 0804 Dec, [place] [address] 66875- 3917 Dec, [facility] [address] [address] 3030 Nov, [facility] [address] [address]- 4450 Aug, [facility] [address] 4362 Aug, [facility] [address] [place] [address] 21133- 5849 Jul, [facility] [address] [address]- 4676 Jul, [facility] [address] [address]- 9124 Jul, Decubitus ulcer of left thigh, stage 2 L89.892 [facility] [address] [address]- 6944 17 Jul, 2016 Decubitus ulcer of left thigh, stage 2 L89.892 [facility] [address] [address]- 0676 17 Jul, 2016 [facility] [address] [address]- 4336 15 Jul, 2016 Decubitus ulcer of left thigh, stage 2 L89.892 [facility] [address] [address]- 8373 14 Jul, 2016 [facility] [address] [address]- 8713 13 Jul, 2016 Cellulitis of other specified site L03.818 ; Illicit drug use F19.90 and Decubitus ulcer of left thigh, stage 2 L89.892 [facility] [address] [address]- 4432 08 Jul, 2016 [facility] [address] [place] [address] 90766- 0754 Jul, Cellulitis of right breast N61.0 [facility] [id number] [place] [address] 03958- 2390 Jun, [facility] [id number] [place] [address] 68259- 1434 Jun, [facility] [address] 68788- 7000 Jun, Wheezing R06.2 and Arthralgia, unspecified joint M25.50 [facility] [address] 35300- 6613 May, [place] [address] 66787- 4242 May, [place] [address] 12968- 6006 May, [facility] [address] 94696- 6749 May, Shortness of breath R06.02 [place] [address] 48928- 9059 May, Onychomycosis B35.1 and Fissure in skin of foot R23.4 [place] [id number] [place] [address] 84841- 2991 Apr, [facility] [address] 34300 -5606 18 Apr, 2016 Dizziness R42 [facility] [id number] [place] [address] 32128- 1729 14 Apr, 2016 Shortness of breath R06.02 ; Essential hypertension I10 ; Dizziness R42 and On home oxygen therapy Z99.81 [facility] [id number] [place] [address] 80840- 9694 Apr, [facility] [address] 75064- 2272 Apr, [facility] [address] [address]- 6924 Apr, [facility] [address] [address]- 3422 Apr, [facility] [address] [address]- 7616 Apr, [facility] [address] [address]- 8932 Apr, [facility] [address] [address]- 2387 Apr, [facility] [address] [address]- 1256 Mar, Mild chronic obstructive pulmonary disease J44.9 [facility] [id number] [address]- 8056 Mar, [facility] [address] [address]- 1334 Mar, Epigastric pain R10.13 ; Low back pain M54.5 ; Other chronic pain G89.29 and Breast cancer screening Z12.39 [facility] [address] [address]- 2309 Mar, [facility] [address] [address]- 7964 Mar, [facility] [address] [address]- 9449 Feb, [facility] [address] [address]- 9358 Feb, [facility] [address] [address]- 2262 Feb, 2016 Fissure in skin of foot R23.4 and Onychomycosis B35.1 [facility] [id number] [place] [address] 47460- 8550 Jan, 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 [facility] [id number] [place] [address] 09306- 9710 Dec, 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 [facility] [id number] [place] [address] 73625- 4620 07 Dec, 2015 Mild persistent asthma without complication J45.30 ; Dysthymic disorder F34.1 and Upper respiratory tract infection, unspecified type J06.9 [facility] [id number] [place] [address] 37646- 6853 Nov, 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 [facility] [id number] [place] [address] 78091- 9514 October, 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 [facility] [id number] [place] [address] 71039- 5988 Sep, Panic disorder without agoraphobia F41.0 ; 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 and Dysthymic disorder F34.1 [facility] [id number] [place] [address] 90652- 2289 Sep, Panic attacks F41.0 [facility] [id number] [place] [address] 13693- 2653 Sep, [facility] [id number] [place] [address] 49370- 6024 Sep, Panic disorder without agoraphobia F41.0 ; Varicose veins of both lower extremities I83.93 and Fatigue R53.83 [facility] [id number] [place] [address] 75553- 2791 14 Sep, 2015 Fatigue R53.83 [facility] [id number] [place] [address] 11753- 9783 05 Sep, 2015 [facility] [id number] [place] [address] 11906- 4379 Aug, [place] [address] [place] [address] 62110- 6437 Aug, [place] [id number] [place] [address] 44069- 2606 Aug, 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 [place] [id number] [place] [address] 21598- 4832 Aug, Panic disorder without agoraphobia F41.0 ; 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 and Dysthymic disorder F34.1 [place] [id number] [place] [address] 65569- 2658 Aug, Shortness of breath R06.02 ; Panic attacks F41.0 ; COPD ( chronic obstructive pulmonary disease) J44.9 ; Tobacco abuse Z72.0 ; Family history of diabetes mellitus Z83.3 and Weight gain R63.5 [place] [id number] [place] [address] 33284- 8711 Aug, [place] [id number] [place] [address] 83478- 3919 Jul, [place] [id number] [place] [address] 81921- 4923 Jun, Onychomycosis B35.1 ; Neuropathy G62.9 and Impaired circulation I99.9 [place] [id number] [place] [address] 02264- 8682 09 Mar, 2015 Fissure in skin of foot R23.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 [place] [id number] [place] [address] 14492- 4232 18 Feb, 2015 Family history of coronary arteriosclerosis V17.3 [place] [id number] [place] [address] 60656- 7172 15 Feb, 2015 Allergic rhinitis due to pollen 477.0 ; Unspecified breast screening V76.10 ; Anxiety 300.00 and Family history of coronary arteriosclerosis V17.3 [facility] [address] [facility] [place] [id number] [address]- 1195 Jan, [facility] [id number] [address]- 0159 Dec, [facility] [id number] [address]- 6684 Dec, Onychomycosis 110.1 and Skin fissures 709.8 [facility] [address] [id number] [address]- 9199 Sep, [facility] [address] [facility] [place] [id number] [place] [address] 54720- 9993 Sep, [facility] [address] [address]- 6042 Aug, [facility] [address] [address]- 1736 Aug, [facility] [address] [address]- 1067 Jul, [facility] [address] [address]- 8468 Jul, [facility] [address] [address]- 7981 Jun, [facility] [address] [address]- 4374 Jun, [facility] [address] [facility] [place] [id number] [address]- 1483 Jun, [facility] [id number] [address]- 7950 Jun, [facility] [id number] 3769 Jun, [facility] [address] [address]- 1549 May, [facility] [place] [facility] [address] [id number] [place] [address]- 9651 May, [facility] [place] [facility] [address] [id number] [place] [address]- 6933 May, [facility] [place] [facility] [address] [id number] [place] [address]- 4595 May, [facility] [place] [facility] [address] [id number] [place] [address]- 2196 May, [facility] [place] [facility] [address] [id number] [place] [address]- 7066 May, [facility] [place] [facility] [address] [id number] [place] [address]- 5485 May, [facility] [place] [facility] [address] [id number] [place] [address]- 7127 May, [facility] [place] [facility] [address] [id number] [place] [address]- 7245 Apr, [facility] [place] [facility] [address] [id number] [place] [address]- 3308 Apr, [facility] [place] [facility] [address] [id number] [place] [address]- 4542 Apr, [facility] [place] [facility] [address] [id number] [place] [address]- 6464 Apr, [facility] [place] [facility] [address] [id number] [place] [address]- 2932 Apr, [facility] [place] [facility] [address] [id number] [place] [address]- 9561 Apr, [facility] [place] [facility] [address] [id number] [place] [address]- 7094 Apr, [facility] [place] [facility] [address] [id number] [place] [address]- 6949 Apr, [facility] [place] [facility] [address] [id number] [place] [address]- 9487 Apr, [facility] [place] [facility] [address] [id number] [place] [address]- 0926 Apr, [facility] [place] [facility] [address] [id number] [place] [address]- 0016 Mar, [facility] [place] [facility] [address] [id number] [place] [address]- 1513 Mar, [facility] [place] [facility] [address] [id number] [place] [address]- 3774 Mar, [facility] [place] [facility] [address] [id number] [place] [address]- 0499 Mar, [facility] [place] [facility] [address] [id number] [place] [address]- 6693 Mar, [facility] [place] [facility] [address] [id number] [place] [address]- 5406 Mar, [facility] [place] [facility] [address] [id number] [place] [address]- 7372 Mar, [facility] [place] [facility] [address] [id number] [place] [address]- 7602 Mar, [facility] [place] [facility] [address] [id number] [place] [address]- 0272 Mar, [facility] [place] [facility] [address] [id number] [place] [address]- 6017 Mar, [facility] [place] [facility] [address] [id number] [place] [address]- 3673 Mar, [facility] [place] [facility] [address] [id number] [place] [address]- 4148 Mar, [facility] [place] [facility] [address] [id number] [place] [address]- 2620 Mar, [facility] [place] [facility] [address] [id number] [place] [address]- 1908 Mar, [facility] [place] [facility] [address] [id number] [place] [address]- 2869 22 Mar, 2013 [facility] [place] [facility] [address] [id number] [place] [address]- 6521 20 Mar, 2013 [facility] [place] [facility] [address] [id number] [place] [address]- 5894 20 Mar, 2014 [facility] [place] [facility] [address] [id number] [place] [address]- 5476 16 Mar, 2014 [facility] [place] [facility] [address] [id number] [place] [address]- 0563 16 Mar, 2014 [facility] [place] [facility] [address] [id number] [place] [address]- 7859 15 Mar, 2014 [facility] [place] [facility] [address] [id number] [place] [address]- 6779 14 Mar, 2014 [facility] [place] [facility] [address] [id number] [place] [address]- 5316 14 Mar, 2014 [facility] [place] [facility] [address] [id number] [place] [address]- 2375 14 Mar, 2014 [facility] [place] [facility] [address] [id number] [address]- 6819 14 Mar, 2014 [facility] [place] [facility] [address] [id number] [address]- 6866 09 Mar, 2014 [facility] [place] [facility] [address] [id number] [address]- 5679 09 Mar, 2014 [facility] [place] [facility] [address] [id number] [place] [address]- 6699 Mar, [facility] [place] [facility] [address] [id number] [address]- 2887 Mar, [facility] [place] [facility] [address] [id number] [place] [address]- 5737 30 Feb, 2014 [facility] [place] [facility] [address] [id number] [place] [address]- 6684 30 Sep, 2013 [facility] [place] [facility] [address] [id number] [place] [address]- 5515 30 Sep, 2013 [facility] [place] [facility] [address] [id number] [place] [address]- 1946 30 Feb, 2013 [facility] [place] [facility] [address] [id number] [place] [address]- 4771 Feb, 2013 [facility] [place] [facility] [address] [id number] [place] [address]- 2232 26 Feb, 2013 [facility] [place] [facility] [address] [id number] [place] [address]- 7668 Feb, 2013 [facility] [place] [facility] [address] [id number] [place] [address]- 3045 Feb, 2013 [facility] [place] [facility] [address] [id number] [place] [address]- 5582 Feb, 2013 [facility] [place] [facility] [address] [id number] [place] [address]- 3567 Feb, 2013 [facility] [place] [facility] [address] [id number] [place] [address]- 4054 Feb, 2013 [facility] [place] [facility] [address] [id number] [place] [address]- 4691 Feb, 2013 [facility] [place] [facility] [address] [id number] [place] [address]- 6870 Jan, [facility] [place] [facility] [address] [id number] [place] [address] Jan, [facility] [place] [facility] [address] [id number] [place] [address] Jan, [facility] [place] [facility] [address] [id number] [place] [address] Jan, [facility] [place] [facility] [address] [id number] [place] [address] Jan, [facility] [place] [facility] [address] [id number] [facility] [place] [address] Jan, [facility] [place] [facility] [address] [id number] [place] [address] Jan, [facility] [place] [facility] [address] [id number] [place] [address] Jan, [facility] [place] [facility] [address] [id number] [place] [address] Jan, [facility] [place] [facility] [address] [id number] [place] [address] Jan, [facility] [place] [facility] [address] [id number] [place] [address] Jan, [facility] [place] [facility] [address] [id number] [place] [address] Jan, [facility] [place] [facility] [address] [id number] [place] [address] Jan, [facility] [place] [facility] [address] [id number] [place] [address] Dec, [facility] [place] [facility] [address] [id number] [place] [address] Dec, [facility] [place] [facility] [address] [id number] [place] [address] Dec, [facility] [place] [facility] [address] [id number] [place] [address] Dec, [facility] [place] [facility] [address] [id number] [place] [address] Dec, [facility] [place] [facility] [address] [id number] [place] [address]- [address] Dec, [facility] [place] [facility] [address] [id number] [place] [address] Dec, [facility] [place] [facility] [address] [id number] [place] [address] Dec, [facility] [place] [facility] [address] [id number] [place] [address] Dec, [facility] [place] [facility] [address] [id number] [place] [address] Dec, [facility] [place] [facility] [address] [id number] [place] [address]- [address] Dec, 2013 [facility] [place] [facility] [address] [id number] [place] [address] Dec, 2013 [facility] [place] [facility] [address] [id number] [place] [address] Dec, [facility] [place] [facility] [address] [id number] [place] [address] Dec, [facility] [place] [facility] [address] [id number] [place] [address] Dec, [facility] [place] [facility] [address] [id number] [place] [address] Dec, [facility] [place] [facility] [address] [id number] [place] [address] Dec, [facility] [place] [facility] [address] [id number] [place] [address] Dec, [facility] [place] [facility] [address] [id number] [place] [address] Nov, [facility] [place] [facility] [address] [id number] [place] [address] Nov, [facility] [place] [facility] [address] [id number] [place] [address] Nov, [facility] [place] [facility] [address] [id number] [place] [address] Nov, [facility] [place] [facility] [address] [id number] [place] [address] Nov, [facility] [place] [facility] [address] [id number] [place] [address] Nov, [facility] [place] [facility] [address] [id number] [place] [address] 3766 Nov, [facility] [place] [facility] [address] [id number] [place] [address] Nov, [facility] [place] [facility] [address] [id number] [place] [address] 5414 Nov, [facility] [place] [facility] [address] [id number] [place] [address] 3[address] Nov, [facility] [place] [facility] [address] [id number] [place] [address] 7440 Nov, [facility] [place] [facility] [address] [id number] [place] [address] 9531 Nov, [facility] [place] [facility] [address] [id number] [place] [address]- 4469 Nov, [facility] [place] [facility] [address] [id number] [place] [address]- 7583 Nov, [facility] [place] [facility] [address] [id number] [place] [address]- [address]200 Nov, [facility] [place] [facility] [address] [id number] [place] [address]- 0141 Nov, [facility] [place] [facility] [address] [id number] [place] [address]- 9453 Nov, [facility] [place] [facility] [address] [id number] [place] [address]- 9842 Nov, [facility] [place] [facility] [address] [id number] [place] [address]- 9431 Nov, [facility] [place] [facility] [address] [id number] [place] [address]- 8166 Nov, [facility] [place] [facility] [address] [id number] [place] [address]- 1086 October, [facility] [place] [facility] [address] [id number] [place] [address]- 8266 October, [facility] [place] [facility] [address] [id number] [place] [address]- 7234 October, [facility] [place] [facility] [address] [id number] [place] [address] October, [facility] [place] [facility] [address] [id number] [place] [address]- 6063 Sep, [facility] [place] [facility] [address] [id number] [place] [address]- 9181 Sep, [facility] [place] [facility] [address] [id number] [place] [address]- 5998 Sep, [facility] [place] [facility] [address] [id number] [place] [address]- 3075 Sep, [facility] [place] [facility] [address] [id number] [place] [address]- 1497 Sep, [facility] [place] [facility] [address] [id number] [place] [address]- 2285 Sep, [facility] [place] [facility] [address] [id number] [place] [address]- 6527 Sep, [facility] [place] [facility] [address] [id number] [place] [address]- 0300 Sep, [facility] [place] [facility] [address] [id number] [place] [address]- 4631 Sep, [facility] [place] [facility] [address] [id number] [place] [address]- 2772 Aug, [facility] [place] [facility] [address] [id number] [place] [address]- 0478 Aug, [facility] [place] [facility] [address] [id number] [place] [address] Aug, [facility] [place] [facility] [address] [id number] [address] 1397 Aug, [facility] [place] [facility] [address] [id number] [place] [address]- 2709 Aug, [facility] [place] [facility] [address] [id number] [place] [address]- 9126 Aug, [facility] [place] [facility] [address] [id number] [place] [address]- 3582 Aug, [facility] [place] [facility] [address] [id number] [place] [address]- [address] Aug, [facility] [place] [facility] [address] [id number] [place] [address]- 6843 Jul, [facility] [place] [facility] [address] [id number] [place] [address]- 2203 Jul, [facility] [place] [facility] [address] [id number] [place] [address]- 6845 Jun, [facility] [place] [facility] [address] [id number] [place] [address]- 7146 Jun, [facility] [place] [facility] [address] [id number] [place] [address]- 8241 Jun, [facility] [place] [facility] [address] [id number] [place] [address]- 9848 Jun, [facility] [place] [facility] [address] [id number] [place] [address]- 6965 Jun, [facility] [place] [facility] [address] [id number] [place] [address]- 2097 Jun, [facility] [place] [facility] [address] [id number] [place] [address]- 6177 Jun, [facility] [place] [facility] [address] [id number] [place] [address]- 2630 Jun, [facility] [place] [facility] [address] [id number] [place] [address]- 0912 Jun, [facility] [place] [facility] [address] [id number] [place] [address]- 3406 Jun, [facility] [place] [facility] [address] [id number] [place] [address]- 2671 Jun, [facility] [place] [facility] [address] [id number] [place] [address]- 0486 Jun, [facility] [place] [facility] [address] [id number] [place] [address]- 6560 May, [facility] [place] [facility] [address] [id number] [place] [address]- 0144 May, [facility] [place] [facility] [address] [id number] [place] [address]- 1416 May, [facility] [place] [facility] [address] [id number] [place] [address]- 8788 May, [facility] [place] [facility] [address] [id number] [place] [address]- 3740 May, [facility] [place] [facility] [address] [id number] [place] [address]- 6304 May, [facility] [place] [facility] [address] [id number] [place] [address]- 2499 26 May, 2013 [facility] [place] [facility] [address] [id number] [place] [address] 1948 May, [facility] [place] [facility] [address] [id number] [place] [address]- 6218 23 May, 2013 [facility] [place] [facility] [address] [id number] [place] [address]- 0186 16 May, 2013 [facility] [place] [facility] [address] [id number] [place] [address]- 0566 16 May, 2013 [facility] [place] [facility] [address] [id number] [place] [address]- 5606 16 May, 2013 [facility] [place] [facility] [address] [id number] [place] [address] 8164 May, [facility] [place] [facility] [address] [id number] [place] [address]- 0690 Apr, [facility] [place] [facility] [address] [id number] [place] [address]- 7835 Apr, [facility] [place] [facility] [address] [id number] [place] [address] Mar, [facility] [place] [facility] [address] [id number] [place] [address]- 4408 Mar, [facility] [place] [facility] [address] [id number] [place] [address]- 9871 Feb, [facility] [place] [facility] [address] [id number] [place] [address]- 0996 Feb, [facility] [place] [facility] [address] [id number] [place] [address]- 1848 Feb, [facility] [place] [facility] [address] [id number] [place] [address]- 0081 Feb, [facility] [place] [facility] [address] [id number] [place] [address]- 1378 Jan, [facility] [place] [facility] [address] [id number] [place] [address]- 0140 Jan, [facility] [place] [facility] [address] [id number] [address]- 9481 Jan, [facility] [place] [facility] [address] [id number] [address]- 7038 Jan, [facility] [place] [facility] [address] [id number] [place] [address]- 3529 Jan, [facility] [place] [facility] [address] [id number] [place] [address]- 1795 Jan, [facility] [place] [facility] [address] [id number] [place] [address]- 2801 Dec, [facility] [place] [facility] [address] [id number] [place] [address]- 5349 Dec, [facility] [address] [id number] [place] [address]- 1983 Dec, [facility] [place] [facility] [address] [id number] [place] [address]- 6832 Dec, [facility] [address] [id number] [place] [address]- 3711 Nov, [facility] [place] [facility] [address] [id number] [place] [address]- 3416 October, [facility] [address] [id number] [place] [address]- 1040 October, [facility] [address] [id number] [place] [address]- 2189 October, [facility] [address] [id number] [place] [address]- 1631 Sep, [facility] [address] [id number] [place] [address]- 4153 Sep, [facility] [place] [facility] [address] [id number] [place] [address]- 1021 Jun, [facility] [address] [id number] [place] [address]- 5155 Jun, [facility] [address] [id number] [place] [address]- 2366 Jun, [facility] [place] [facility] [address] [id number] [place] [address]- 5131 Apr, [facility] [place] [facility] [address] [id number] [place] [address]- 3317 Apr, [facility] [place] [facility] [address] [id number] [place] [address]- 5403 Apr, [facility] [address] [id number] [place] [address]- 0977 Apr, [facility] [place] [facility] [address] [id number] [place] [address]- 4295 Mar, [facility] [place] [facility] [address] [id number] [place] [address]- 6360 Mar, [facility] [place] [facility] [address] [id number] [place] [address]- 1988 Mar, [facility] [place] [facility] [address] [id number] [place] [address], [place] [address]- 5385 Mar, [facility] [place] [facility] [address] [id number] [place] [address]- 8788 Feb, [facility] [place] [facility] [address] [id number] [place] [address]- 5073 Feb, [facility] [place] [facility] [address] [id number] [place] [address]- 5427 Feb, [facility] [place] [facility] [address] [id number] [place] [address]- 5427 Jan, [facility] [place] [facility] [address] [id number] [place] [address]- 7689 Jan, [facility] [place] [facility] [address] [id number] [place] [address]- 2239 Jan, [facility] [place] [facility] [address] [id number] [place] [address]- 1659 Jan, [facility] [place] [facility] [address] [id number] [place] [address]- 2042 Dec, [facility] [place] [facility] [address] [id number] [place] [address]- 3029 Dec, [facility] [place] [facility] [address] [id number] [place] [address]- 6879 Nov, [facility] [place] [facility] [address] [id number] [place] [address]- 7086 Nov, [facility] [place] [facility] [address] [id number] [place] [address]- 0816 October, [facility] [address] [id number] [place] [address]- 8785 October, [facility] [place] [facility] [address] [id number] [place] [address]- 7768 October, [facility] [place] [facility] [address] [id number] [place] [address]- 6717 Sep, [facility] [place] [facility] [address] [id number] [place] [address]- 6235 Sep, [facility] [place] [facility] [address] [id number] [place] [address]- 2262 Sep, [facility] [address] [id number] [place] [address]- 1579 Aug, [facility] [address] [id number] [place] [address]- 0424 Aug, [facility] [place] [facility] [address] [id number] [place] [address]- 3533 Aug, [facility] [place] [facility] [address] [id number] [place] [address]- 1179 Aug, [facility] [place] [facility] [address] [facility] [place] [id number] [place] [address]- 4761 Aug, [facility] [address] [id number] [place] [address]- 5375 Jul, [facility] [place] [facility] [address] [id number] [place] [address]- 3267 16 Jul, 2011 [facility] [place] [facility] [address] [id number] [place] [address]- 7451 Jul, [facility] [place] [facility] [address] [id number] [place] [address]- 4151 Jul, [facility] [place] [facility] [address] [facility] [place] [id number] [place] [address] 07 Jul, 2011 [facility] [place] [facility] [address] [id number] [place] [address]- 3647 Jul, [facility] [place] [facility] [address] [id number] [place] [address]- 2784 Jul, [facility] [place] [facility] [address] [id number] [place] [address]- 3209 Jul, [facility] [place] [facility] [address] [id number] [place] [address]- 8468 Jun, [facility] [place] [facility] [address] [id number] [place] [address]- 3221 Jun, [facility] [place] [facility] [address] [id number] [place] [address]- 7008 May, [facility] [place] [facility] [address] [id number] [place] [address]- 1971 May, [facility] [place] [facility] [address] [id number] [place] [address]- 7313 May, [facility] [place] [facility] [address] [id number] [place] [address]- 0493 May, [facility] [place] [facility] [address] [id number] [place] [address]- 1782 Apr, [facility] [place] [facility] [address] [id number] [place] [address]- 6261 Apr, [facility] [place] [facility] [address] [id number] [place] [address]- 6758 Apr, [facility] [place] [facility] [address] [id number] [place] [address]- 5357 Mar, [facility] [place] [facility] [address] [id number] [place] [address]- 7618 Mar, [facility] [place] [facility] [address] [id number] [place] [address]- 5502 Mar, [facility] [place] [facility] [address] [id number] [place] [address]- 2225 Mar, [facility] [address] [facility] [place] [id number] [address]- 8543 Dec, [facility] [address] [facility] [place] [id number] [place] [address]- 7726 October, [facility] [address] [facility] [place] [id number] [place] [address]- 1006 May, [facility] [address] [facility] [place] [id number] [address]- 8746 May, [facility] [address] [facility] [place] [id number] [place] [address]- 5371 May, [facility] [address] [facility] [place] [id number] [place] [address]- 7276 May, [facility] [address] [facility] [place] [id number] [place] [address]- 9379 Mar, [facility] [address] [facility] [place] [id number] [place] [address]- 7785 Mar, [facility] [address] [facility] [place] [id number] [place] 9441 May, [facility] [address] [facility] [place] [id number] [address]- 8674 May, [facility] [address] [facility] [place] [id number] [place] [address]- 5564 May, [facility] [address] [facility] [place] [id number] [place] [address]- 3039 May, [facility] [address] [facility] [place] [id number] [place] [address]- 6671 Apr, [facility] [address] [facility] [place] [id number] [place] [address]- 8174 Apr, [facility] [address] [facility] [place] [id number] [place] [address]- 5859 October, IMMUNIZATIONS No Known Immunizations SOCIAL HISTORY Never Assessed REASON FOR VISIT Dizziness and then falls. Reports has been happening for last few days. Reports with ambulation and getting up. She also reports has been sick for 2 weeks and has been seen here at clinic twice. Reports she is anemic.CBrumbackRN PLAN OF CARE VITAL SIGNS Height 64 in 2018-01-21 Weight 262.4 lbs 2018-01-21 Temperature 99.0 degrees Fahrenheit 2018-01-21 Heart Rate 82 bpm 2018-01-21 Respiratory Rate 22 2018-01-21 Oximetry on room air:94 % 2018-01-21 BMI 45.04 kg/m2 2018-01-21 Blood pressure systolic 104 mmHg 2018-01-21 Blood pressure diastolic 66 mmHg 2018-01-21 MEDICATIONS Medication Instructions Dosage Frequency Start Date End Date Duration Status Nitrofurantoin Monohyd Macro 100 mg Orally Once a day 1 capsule with supper 24h Active Symbicort 160-4.5 MCG/ACT Inhalation Twice a day 2 puffs 12h Jun, 90 days Active Oxygen ... 2L with nasal cannula Active Fluoxetine HCl 20 mg Orally Once a day 1 capsule in the morning 24h Aug 90 days Active Cetirizine HCl 10 mg Orally Once a day 1 tablet 24h Jan, Jul, 30 day(s) Active Simvastatin 40 mg Orally Once a day 1 tablet in the evening 24h 30 Active Montelukast Sodium 10 MG Orally Once a day 1 tablet in the evening 24h 90 days Active Ventolin HFA 108 (90 Base) MCG/ACT Inhalation every 4 hrs 2 puffs as needed 4h Dec, 90 days Active Omeprazole 20 MG Orally Once a day 1 capsule 24h Jan, 30 day(s ) Active Sudafed 30 MG Orally every 6 hrs 1 tablet as needed 6h Jan, Active Ropinirole HCl 0.5 MG Orally Once a day 1 tablet 1 to 3 hours before bedtime 24h 30 days Active Toviaz 4 MG Orally Once a day 1 tablet 24h Active Albuterol Sulfate (2.5 MG/3ML) 0.083% Inhalation every 6 hrs 3 ml as needed 6h Apr, Active Nebulizer - as directed for use with inhaled medications Mar, lifetime Active Estradiol 0.5 MG Orally Once a day 1 tablet 24h Active Ranitidine HCl 150 MG Orally 2 times a day 1 tablet 12h 30 days Active Quinapril HCl 20 mg Orally Once a day 2 tablets 24h Active Meloxicam 7.5 MG Orally Once a day 1 tablet 24h Active HydrOXYzine HCl 50 MG Orally 2 times a day 1 tablet 12h 30 days Active Gabapentin 300 MG Orally Three times a day 1 capsule 8h Active Cyclobenzaprine HCl 10 mg Orally Three times a day 1 tablet as needed for spasms 8h Active PredniSONE 20 mg Orally Once a day 2 tablets 24h Jan, 05 days Not-Taking RESULTS No Results PROCEDURES Procedure Date Ordered Result Body Site [facility] VISIT ESTABLISHED PATIENT Jan 21, 2018 INSTRUCTIONS MEDICATIONS ADMINISTERED No Known Medications [...]
--- OUTSIDE RECORDS SUMMARY | 2018-03-17 11:09 | XMS REPORT ---
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 Name Role Phone THOMAS JENNINGS Unavailable PROBLEMS Type Condition ICD9-CM Code MFQ47-VX Code Onset Dates Condition Status SNOMED Code Problem Other chronic pain G89.29 Active 60162405 Problem On home oxygen therapy Z99.81 Active 965443790135 Problem Mild chronic obstructive pulmonary disease J44.9 Active 855670159 Problem COPD (chronic obstructive pulmonary disease) with chronic bronchitis J44.9 Active 922186509 Problem History of illicit drug use Z87.898 Active 001301507 Problem COPD exacerbation J44.1 Active 577899153 Problem Neuropathy G62.9 Active 371790321 Problem Essential hypertension I10 Active 55794527 Problem 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 Active 99570805 Problem Major depressive disorder, recurrent episode, moderate F33.1 Active 010245887 Problem Impaired circulation I99.9 Active 98475549 Problem 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 Active 63165812 Problem Snoring R06.83 Active 35977875 Problem MRSA (methicillin resistant staph aureus) culture positive Z22.322 Active 393279326 Problem Fatigue R53.83 Active 77737716 Problem Varicose veins of both lower extremities I83.93 Active 01693618 Problem Dysthymic disorder F34.1 Active 69465165 Problem Upper respiratory tract infection, unspecified type J06.9 Active 64994604 Problem Panic disorder without agoraphobia F41.0 Active 58464754 Problem Mild persistent asthma without complication J45.30 Active 911929219 ALLERGIES No Information ENCOUNTERS Encounter Location Date Diagnosis [facility] [address] [facility] [id number], [place] [address] Feb, [facility] [address] [facility] [id number], [place] [address] Feb, [place] [address] [place] [id number] [place] [address] 50489- 3603 Feb, Dysthymic disorder F34.1 [place] [address] 6[address]91- 2995 Feb, [place] [address] 87668- 7747 Jan, [place] [address] [address]64- 8494 Jan, Abrasion of right elbow, initial encounter S50.311A ; Abrasion, right knee, initial encounter S80.211A and Sprain of other ligament of right ankle, initial encounter S93.491A [place] [address] 33262- 9449 Jan, [facility] [address] [address] Jan, Injury of left ankle, initial encounter S99.912A ; Fall down stairs, initial encounter W10.8XXA and BMI 45.0-49.9, adult Z68.42 [place] [address] 99459- 0126 Jan, COPD exacerbation J44.1 [place] [address] 59289- 9082 Jan, Dysfunction of both eustachian 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 [place] [address] 18121- 7265 Jan, Bronchitis J40 and Acute suppurative otitis media of left ear without spontaneous rupture of tympanic membrane, recurrence not specified H66.002 [place] [address] [place] [id number] [place] [address] 37367- 4668 Jan, [place] [address] 55777- 4635 Jan, Bronchitis J40 and BMI 40.0-44.9, adult Z68.41 [place] [address] [place] [id number] [place] [address] 55350- 6689 Jan, [place] [address] 65175- 7057 Dec, Gastric pain R10.9 [place] [address] 92195- 8905 Dec, [place] [address] 25976- 2821 Dec, History of illicit drug use Z87.898 ; Neuropathy G62.9 ; COPD (chronic obstructive pulmonary disease) with chronic bronchitis J44.9 and Acute pain of right knee M25.[address] [address]246- 6275 Nov, [address] 01485- 8346 Nov, Onychomycosis B35.1 and Contusion of left foot, subsequent encounter S90.32XD [address] 04111- 6021 Nov, COPD exacerbation J44.1 [place] [address] 31891- 1247 Sep, [address] 43893- 0660 Sep, Dysthymic disorder F34.1 ; Tobacco abuse Z72.0 ; Pain in right knee M25.561 ; Pain in left knee M25.562 ; Other chronic pain G89.29 and BMI 40.0-44.9, adult Z68.41 [place] [address] [place] [id number] [place] [address] 70529- 1988 Aug, Major depressive disorder, recurrent episode, moderate F33.1 and 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 [place] [address]- 8622 14 Aug, 2017 Dysthymic disorder F34.1 ; Non-pressure chronic ulcer of left thigh, unspecified ulcer stage L97.129 ; Tobacco abuse Z72.0 ; Mild chronic obstructive pulmonary disease J44.9 and Forgetfulness R68.89 [place] [address] [place] [id number] [place] [address] 51982- 0069 09 Aug, 2017 Onychomycosis B35.1 ; Fissure in skin of foot R23.4 and Foot callus L84 [facility] [place] [id number] [place] [address]50 -2479 Jul, Right medial knee pain M25.561 ; Upper respiratory tract infection, unspecified type J06.9 and BMI 40.0-44.9, adult Z68.41 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 [place] [address] [place] [id number] [place] [address] 16977- 0046 Jan, Onychomycosis B35.1 and Neuropathy G62.9 [place] [address] 06650- 4475 Dec, [place] [address] 99797- 9346 Dec, [place] [address] 79221- 5811 Nov, [facility] [address] [address] 1520 Aug, [facility] [address], [place] [address] 4285 Aug, [facility] [address], [place] [address] 3429 Jul, [facility] [address] [place] [address] 27617- 5709 Jul, [facility] [address] [place] [address] 08316- 8918 Jul, Decubitus ulcer of left thigh, stage 2 L89.892 [facility] [address], [place] [address] 2911 Jul, Decubitus ulcer of left thigh, stage 2 L89.892 [facility] [address], [place] [address]- 9452 17 Jul, 2016 [facility] [address] [place] [address] 22256- 3817 15 Jul, 2016 Decubitus ulcer of left thigh, stage 2 L89.892 [facility] [address], [place] [address]- 2876 14 Jul, 2016 [facility] [address], [place] [address]- 3979 13 Jul, 2016 Cellulitis of other specified site L03.818 ; Illicit drug use F19.90 and Decubitus ulcer of left thigh, stage 2 L89.892 [facility] [address], [place] [address]- 9797 08 Jul, 2016 [facility] [address], [place] [address]- 1431 06 Jul, 2016 Cellulitis of right breast N61.0 [facility] [address] [place] [id number] [place] [address] 35154- 4719 Jun, [facility] [address] [place] [id number] [place] [address] 07796- 7793 Jun, [facility] [address] [place] [id number] [place] [address] 75876- 9936 Jun, Wheezing R06.2 and Arthralgia, unspecified joint M25.50 [facility] [address] 87828- 6543 May, [facility] [address] [place] [id number] [place] [address] 65236- 6173 May, [place] [address] [place] [id number] [place] [address] 21142- 0768 May, [place] [address] [place] [id number] [place] [address] 99304- 9157 May, Shortness of breath R06.02 [facility] [address] [place] [id number] [place] [address] 27204- 9248 May, Onychomycosis B35.1 and Fissure in skin of foot R23.4 [place] [address] [place] [id number] [place] [address] 90977- 7868 Apr, [facility] [address] [place] [id number] [place] [address] 28008 -8019 Apr, Dizziness R42 [place] [address] [place] [id number] [place] [address] 20541- 2632 14 Apr, 2016 Shortness of breath R06.02 ; Essential hypertension I10 ; Dizziness R42 and On home oxygen therapy Z99.81 [place] [address] [place] [id number] [place] [address] 96466- 3008 Apr, [place] [address] [place] [id number] [place] [address] 17381- 6937 08 Apr, 2016 [facility] [address] [place] [id number] [place] [address] 03676- 1317 Apr, [facility] [address] [place] [id number] [place] [address] 00836- 8593 Apr, [facility] [address] [place] [id number] [place] [address] 59083- 1958 Apr, [facility] [address] [place] [id number] [place] [address] 27238- 2019 Apr, [facility] [address] [place] [id number] [place] [address] 76446- 4612 Apr, [facility] [address] [place] [id number] [place] [address] 94666- 6269 Mar, Mild chronic obstructive pulmonary disease J44.9 [facility] [address] [place] [id number] [place] [address] 11561- 0874 Mar, [facility] [address] [place] [id number] [place] [address] 01526- 2472 Mar, Epigastric pain R10.13 ; Low back pain M54.5 ; Other chronic pain G89.29 and Breast cancer screening Z12.39 [facility] [address] [place] [id number] [place] [address] 98722- 5217 Mar, [facility] [address] [place] [id number] [place] [address] 37413- 2710 Mar, [facility] [address] [place] [id number] [place] [address] 55561- 8843 Feb, [facility] [address] [place] [address] 69225- 0519 Feb, [facility] [address] [place] [id number] [place] [address] 67106- 2406 Feb, 2016 Fissure in skin of foot R23.4 and Onychomycosis B35.1 [facility] [address], [place] [address]- 0239 Jan, 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 [facility] [address] [place] [address] 18827- 8554 Dec, 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 [facility] [address] [place] [id number] [place] [address] 70042- 3286 Dec, Mild persistent asthma without complication J45.30 ; Dysthymic disorder F34.1 and Upper respiratory tract infection, unspecified type J06.9 [facility] [address] [place] [id number] [place] [address] 54011- 3843 Nov, 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 [facility] [address] [place] [id number] [place] [address] 63006- 1269 October, 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 [place] [address] [place] [id number] [place] [address] 89480- 6852 Sep, Panic disorder without agoraphobia F41.0 ; 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 and Dysthymic disorder F34.1 [place] [address] [place] [id number] [place] [address] 04479- 5654 Sep, Panic attacks F41.0 [place] [address] [place] [id number] [place] [address] 50894- 0253 Sep, [facility] [address] [place] [id number] [place] [address] 41237- 0605 Sep, Panic disorder without agoraphobia F41.0 ; Varicose veins of both lower extremities I83.93 and Fatigue R53.83 [facility] [address] [place] [id number] [place] [address] 69739- 3100 Sep, Fatigue R53.83 [facility] [address] [place] [id number] [place] [address] 54700- 3616 Sep, [facility] [address] [place] [id number] [place] [address] 97769- 3752 Aug, [facility] [address] [place] [id number] [place] [address] 34596- 6130 Aug, [place] [address] [place] [address] 27450- 0020 Aug, 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 [place] [address] [place] [id number] [place] [address] 80966- 8802 Aug, Panic disorder without agoraphobia F41.0 ; 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 and Dysthymic disorder F34.1 [place] [address] [place] [id number] [place] [address] 51022- 5578 Aug, Shortness of breath R06.02 ; Panic attacks F41.0 ; COPD ( chronic obstructive pulmonary disease) J44.9 ; Tobacco abuse Z72.0 ; Family history of diabetes mellitus Z83.3 and Weight gain R63.5 [place] [address] [place] [id number] [place] [address] 84396- 8268 Aug, [place] [address] 90282- 1779 Jul, [place] [address] 43806- 1263 Jun, Onychomycosis B35.1 ; Neuropathy G62.9 and Impaired circulation I99.9 [place] [id number] [place] [address] 23608- 5859 09 Mar, 2015 Fissure in skin of foot R23.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 [place] [address] [place] [id number] [place] [address] 06219- 4792 18 Feb, 2015 Family history of coronary arteriosclerosis V17.[address] 46816- 6064 15 Feb, 2015 Allergic rhinitis due to pollen 477.0 ; Unspecified breast screening V76.10 ; Anxiety 300.00 and Family history of coronary arteriosclerosis V17.3 [place] [address] [place] [address]- 0371 Jan, [facility] [address] [facility] [id number], [place] [address]- 4262 Dec, [facility] [address] [place] [id number] [address]- 8882 Dec, Onychomycosis 110.1 and Skin fissures 709.8 [facility] [address] [facility] [id number], [place] [address]- 5271 Sep, [facility] [address] [facility] [id number] [place] [address]- 5440 Sep, [facility] [address] [facility] [id number], [place] [address]- 1306 Aug, [facility] [address], [place] [address]- 3334 Aug, [facility] [address] [place] [id number], [place] [address]- 4555 Jul, [facility] [address] [place] [id number] [place] [address]- 6806 Jul, [facility] [address] [place] [id number], [place] [address]- 3819 Jun, [facility] [address] [place] [id number], [place] [address]- 4641 Jun, [facility] [address] [facility] [id number], [place] [address]- 6112 Jun, [facility] [place] [facility] [address] [facility] [id number] [place] [address]- 2599 Jun, [facility] [address] [facility] [id number], [place] [address]- 8513 Jun, [facility] [place] [facility] [address] [facility] [id number] [place] 6808 May, [facility] [address] [facility] [id number] [place] [address]- 6316 May, [facility] [place] [facility] [address] [id number] [place] [address]- 4853 May, [facility] [place] [facility] [address] [id number] [place] [address]- 8039 May, [facility] [place] [facility] [address] [id number] [place] [address]- 9390 May, [facility] [place] [facility] [address] [id number] [place] [address]- 5945 May, [facility] [place] [facility] [address] [id number] [place] [address]- 2726 May, [facility] [place] [facility] [address] [id number] [place] [address]- 0765 May, [facility] [place] [facility] [address] [id number] [place] [address]- 7566 Apr, [facility] [place] [facility] [address] [id number] [place] [address]- 4269 Apr, [facility] [place] [facility] [address] [id number] [place] [address]- 9914 Apr, [facility] [place] [facility] [address] [facility] [id number] [place] [address]- 3350 Apr, [facility] [place] [facility] [address] [id number] [place] [address]- 2819 Apr, [facility] [place] [facility] [address] [id number] [place] [address]- 3105 Apr, [facility] [place] [facility] [address] [id number] [place] [address]- 3883 Apr, [facility] [place] [facility] [address] [id number] [place] [address]- 5715 Apr, [facility] [place] [facility] [address] [id number] [place] [address]- 4836 Apr, [facility] [place] [facility] [address] [id number] [place] [address]- 0273 Apr, [facility] [place] [facility] [address] [id number] [place] [address]- 3487 Mar, [facility] [place] [facility] [address] [id number] [place] [address]- 8433 Mar, [facility] [place] [facility] [address] [id number] [place] [address]- 1471 Mar, [facility] [place] [facility] [address] [id number] [place] [address]- 5516 Mar, [facility] [place] [facility] [address] [id number] [place] [address]- 2247 Mar, [facility] [place] [facility] [address] [id number] [place] [address]- 6848 Mar, [facility] [place] [facility] [address] [id number] [place] [address]- 9787 Mar, [facility] [place] [facility] [address] [id number] [place] [address]- 4358 Mar, [facility] [place] [facility] [address] [id number] [place] [address]- 3832 Mar, [facility] [place] [facility] [address] [id number] [place] [address]- 7332 Mar, [facility] [place] [facility] [address] [id number] [place] [address]- 2278 Mar, [facility] [place] [facility] [address] [id number] [place] [address]- 1509 Mar, [facility] [place] [facility] [address] [id number] [place] [address]- 0810 Mar, [facility] [place] [facility] [address] [id number] [place] [address]- 3733 Mar, [facility] [place] [facility] [address] [id number] [place] [address]- 3563 Mar, [facility] [place] [facility] [address] [id number] [place] [address]- 3349 20 Mar, 2014 [facility] [place] [facility] [address] [id number] [place] [address]- 4161 20 Mar, 2014 [facility] [place] [facility] [address] [id number] [place] [address]- 5482 16 Mar, 2014 [facility] [place] [facility] [address] [id number] [place] [address]- 5515 16 Mar, 2013 [facility] [place] [facility] [address] [id number] [place] [address]- 8770 15 Mar, 2014 [facility] [place] [facility] [address] [id number] [place] [address]- 3746 14 Mar, 2014 [facility] [place] [facility] [address] [id number] [place] [address]- 3095 14 Mar, 2014 [facility] [place] [facility] [address] [id number] [place] [address]- 0971 14 Mar, 2013 [facility] [place] [facility] [address] [id number] [place] [address]- 1199 14 Mar, 2014 [facility] [place] [facility] [address] [id number] [place] [address]- 0701 09 Mar, 2013 [facility] [place] [facility] [address] [id number], [place] [address]- 8904 09 Mar, 2013 [facility] [place] [facility] [address] [id number], [place] [address]- 0127 09 Mar, 2013 [facility] [place] [facility] [address] [id number] [place] 5387 Mar, [facility] [place] [facility] [address] [id number], [place] [address]- 7142 30 Feb, 2014 [facility] [place] [facility] [address] [id number] [place] [address]- 3520 30 Feb, 2014 [facility] [place] [facility] [address] [id number] [place] [address]- 3119 30 Feb, 2013 [facility] [place] [facility] [address] [id number] [place] [address] 2546 30 Feb, 2013 [facility] [place] [facility] [address] [id number] [place] [address] 2546 Feb, 2013 [facility] [place] [facility] [address] [id number] [place] [address]- 0260 Feb, 2013 [facility] [place] [facility] [address] [id number] [place] [address]- 2543 Feb, 2013 [facility] [place] [facility] [address] [id number] [place] [address]- 3859 Feb, 2013 [facility] [place] [facility] [address] [id number] [place] [address]- 0956 Feb, 2013 [facility] [place] [facility] [address] [id number] [place] [address]- 8031 Feb, 2013 [facility] [place] [facility] [address] [id number] [place] [address]- 5770 Feb, 2013 [facility] [place] [facility] [address] [id number] [place] [address]- 5395 Feb, 2013 [facility] [place] [facility] [address] [id number] [place] [address]- 2987 Jan, [facility] [place] [facility] [address] [id number] [place] [address]- 2542 Jan, [facility] [place] [facility] [address] [id number] [place] [address] Jan, [facility] [place] [facility] [address] [id number] [place] [address] Jan, [facility] [place] [facility] [address] [id number] [place] [address] Jan, [facility] [place] [facility] [address] [id number] [place] [address] Jan, [facility] [place] [facility] [address] [id number] [place] [address] Jan, [facility] [place] [facility] [address] [id number] [place] [address] Jan, [facility] [place] [facility] [address] [id number] [place] [address] Jan, [facility] [place] [facility] [address] [id number] [place] [address] Jan, [facility] [place] [facility] [address] [id number] [place] [address] Jan, [facility] [place] [facility] [address] [id number] [place] [address] Jan, [facility] [place] [facility] [address] [id number] [place] [address] Jan, [facility] [place] [facility] [address] [id number] [place] [address] Dec, [facility] [place] [facility] [address] [id number] [place] [address] Dec, [facility] [place] [facility] [address] [id number] [place] [address] Dec, [facility] [place] [facility] [address] [id number] [place] [address] Dec, [facility] [place] [facility] [address] [id number] [place] [address] Dec, [facility] [place] [facility] [address] [id number] [place] [address] Dec, [facility] [place] [facility] [address] [id number] [place] [address] Dec, [facility] [place] [facility] [address] [id number] [place] [address] Dec, [facility] [place] [facility] [address] [id number] [place] [address] Dec, 2013 [facility] [place] [facility] [address] [id number] [place] [address] Dec, 2013 [facility] [place] [facility] [address] [id number] [place] [address] Dec, 2013 [facility] [place] [facility] [address] [id number] [place] [address]- [address] Dec, 2013 [facility] [place] [facility] [address] [id number] [place] [address]- [address] Dec, 2013 [facility] [place] [facility] [address] [id number] [place] [address]- [address] Dec, 2013 [facility] [place] [facility] [address] [id number] [place] [address]- [address] Dec, 2013 [facility] [place] [facility] [address] [id number] [place] [address] Dec, [facility] [place] [facility] [address] [id number] [place] [address]- [address] Dec, [facility] [place] [facility] [address] [id number] [place] [address] Dec, [facility] [place] [facility] [address] [id number] [place] [address] Nov, [facility] [place] [facility] [address] [id number] [place] [address] Nov, [facility] [place] [facility] [address] [id number] [place] [address]- [address] Nov, [facility] [place] [facility] [address] [id number] [place] [address] Nov, [facility] [place] [facility] [address] [id number] [place] [address] Nov, [facility] [place] [facility] [address] [id number] [place] [address] Nov, [facility] [place] [facility] [address] [id number] [place] [address] Nov, [facility] [place] [facility] [address] [id number] [place] [address] Nov, [facility] [place] [facility] [address] [id number] [place] [address] Nov, [facility] [place] [facility] [address] [id number] [place] [address] Nov, [facility] [place] [facility] [address] [id number] [place] [address] Nov, [facility] [place] [facility] [address] [id number] [place] [address]- [address] Nov, [facility] [place] [facility] [address] [id number] [place] [address] Nov, [facility] [place] [facility] [address] [id number] [place] [address] Nov, [facility] [place] [facility] [address] [id number] [place] [address] Nov, [facility] [place] [facility] [address] [id number] [place] [address] 8[address] Nov, [facility] [place] [facility] [address] [id number] [place] [address] 8320 Nov, [facility] [place] [facility] [address] [id number] [place] [address]- 3[address] Nov, [facility] [place] [facility] [address] [id number] [place] [address]- 7906 Nov, [facility] [place] [facility] [address] [id number] [place] [address]- [address] Nov, [facility] [place] [facility] [address] [id number] [place] [address]- 64[address] October, [facility] [place] [facility] [address] [id number] [place] [address] 7900 October, [facility] [place] [facility] [address] [id number] [place] [address]- 7776 October, [facility] [place] [facility] [address] [id number] [place] [address]- 7651 October, [facility] [place] [facility] [address] [id number] [place] [address]- 8[address] Sep, [facility] [place] [facility] [address] [id number] [place] [address]- 8790 Sep, [facility] [place] [facility] [address] [id number] [place] [address]- 9471 Sep, [facility] [place] [facility] [address] [id number] [place] [address]- 1319 Sep, [facility] [place] [facility] [address] [id number] [place] [address]- 3577 Sep, [facility] [place] [facility] [address] [id number] [place] [address]- 5863 Sep, [facility] [place] [facility] [address] [id number] [place] [address]- 2773 Sep, [facility] [place] [facility] [address] [id number] [place] [address]- 1172 Sep, [facility] [place] [facility] [address] [id number] [place] [address]- 7125 Sep, [facility] [place] [facility] [address] [id number] [place] [address]- 9844 Aug, [facility] [place] [facility] [address] [id number] [place] [address]- 9397 Aug, [facility] [place] [facility] [address] [id number] [place] [address]- 2541 Aug, [facility] [place] [facility] [address] [id number] [place] [address]- 4610 Aug, [facility] [place] [facility] [address] [id number] [place] [address]- 9895 07 Aug, 2013 [facility] [place] [facility] [address] [id number] [place] [address]- 0102 Aug, [facility] [place] [facility] [address] [id number] [place] [address]- 1798 Aug, [facility] [place] [facility] [address] [id number] [place] [address]- 5824 Aug, [facility] [place] [facility] [address] [id number] [place] [address]- 0090 Jul, [facility] [place] [facility] [address] [id number] [place] [address]- 4079 Jul, [facility] [place] [facility] [address] [id number] [place] [address]- 3779 Jun, [facility] [place] [facility] [address] [id number] [place] [address]- 3336 Jun, [facility] [place] [facility] [address] [id number] [place] [address]- 3243 Jun, [facility] [place] [facility] [address] [id number] [place] [address]- 2993 Jun, [facility] [place] [facility] [address] [id number] [place] [address]- 4604 Jun, [facility] [place] [facility] [address] [id number] [place] [address]- 9453 Jun, [facility] [place] [facility] [address] [id number] [place] [address]- 0239 Jun, [facility] [place] [facility] [address] [id number] [place] [address]- 5417 15 Jun, 2013 [facility] [place] [facility] [address] [id number] [place] [address]- 5491 15 Jun, 2013 [facility] [place] [facility] [address] [id number] [place] [address]- 6389 14 Jun, 2013 [facility] [place] [facility] [address] [id number] [place] [address]- 7196 Jun, [facility] [address] [id number] [place] [address] 1944 Jun, [facility] [address] [id number] [place] [address]- 4462 May, [facility] [address] [id number] [place] [address]- 3795 May, [facility] [address] [id number] [place] [address] May, [facility] [address] [id number] [place] [address]- 7800 May, [facility] [address] [id number] [place] [address]- 9988 May, [facility] [address] [id number] [place] [address]- 4983 May, [facility] [address] [id number] [place] [address]- 5394 May, [facility] [address] [id number] [place] [address]- 9756 May, [facility] [address] [id number] [place] [address]- 8860 May, [facility] [address] [id number] [place] [address]- 7615 16 May, 2013 [facility] [place] [facility] [address] [id number] [place] [address]- 6122 16 May, 2013 [facility] [place] [facility] [address] [id number] [place] [address]- 1356 16 May, 2013 [facility] [place] [facility] [address] [id number] [place] [address]- 2154 16 May, 2013 [facility] [place] [facility] [address] [id number] [place] [address]- 4820 Apr, [facility] [place] [facility] [address] [id number] [place] [address]- 9082 Apr, [facility] [place] [facility] [address] [id number] [place] [address]- [address] Mar, [facility] [place] [facility] [address] [id number] [place] [address]- 6409 Mar, [facility] [place] [facility] [address] [id number] [place] [address]- 6220 Feb, [facility] [place] [facility] [address] [id number] [place] [address] 1979 Feb, [facility] [place] [facility] [address] [id number] [place] [address]- 2010 Feb, [facility] [place] [facility] [address] [id number] [place] [address]- 3900 Feb, [facility] [place] [facility] [address] [id number] [place] [address]- 5339 Jan, [facility] [place] [facility] [address] [id number] [place] [address]- 4466 Jan, [facility] [place] [facility] [address] [id number] [place] [address]- 1823 Jan, [facility] [place] [facility] [address] [id number] [place] [address]- 9709 Jan, [facility] [place] [facility] [address] [id number] [place] [address]- 2771 Jan, [facility] [place] [facility] [address] [id number] [place] [address]- 9551 Jan, [facility] [place] [facility] [address] [id number] [place] [address]- 5374 Dec, [facility] [place] [facility] [address] [id number] [place] [address]- 4898 Dec, [facility] [place] [facility] [address] [id number] [place] [address]- 1976 Dec, [facility] [address] [id number] [place] [address]- 7111 Dec, [facility] [address] [id number] [place] [address]- 2546 Nov, [facility] [address] [id number] [place] [address]- 5686 October, [facility] [address] [id number] [place] [address]- 0017 October, [facility] [address] [id number] [place] [address]- 4316 October, [facility] [address] [id number] [place] [address]- 6025 Sep, [facility] [address] [id number] [place] [address]- 1376 Sep, [facility] [address] [id number] [place] [address]- 0263 Jun, [facility] [address] [id number] [place] [address]- 6574 Jun, [facility] [address] [id number] [place] [address]- 3729 Jun, [facility] [address] [id number] [place] [address]- 3425 Apr, [facility] [address] [id number] [place] [address]- 9782 Apr, [facility] [place] [facility] [address] [id number] [place] [address]- 4056 Apr, [facility] [address] [id number] [place] [address]- 8426 Apr, [facility] [address] [id number] [place] [address]- 8430 Mar, [facility] [place] [facility] [address] [id number] [place] [address]- 8662 Mar, [facility] [place] [facility] [address] [id number] [place] [address]- 6355 Mar, [facility] [place] [facility] [address] [id number] [place] [address]- 6711 Mar, [facility] [place] [facility] [address] [id number] [place] [address]- 9825 Feb, [facility] [place] [facility] [address] [id number] [place] [address]- 6572 Feb, [facility] [place] [facility] [address] [id number] [place] [address]- 1945 Feb, [facility] [place] [facility] [address] [id number] [place] [address]- 8711 Jan, [facility] [place] [facility] [address] [id number] [place] [address]- 6887 Jan, [facility] [place] [facility] [address] [id number] [place] [address]- 9137 Jan, [facility] [place] [facility] [address] [id number], [place] [address]- 3414 Jan, [facility] [place] [facility] [address] [id number] [place] [address]- 8129 Dec, [facility] [place] [facility] [address] [id number], [place] [address]- 4224 Dec, [facility] [place] [facility] [address] [id number] [place] [address]- 7758 Nov, [facility] [place] [facility] [address] [id number] [place] [address]- 0961 Nov, [facility] [place] [facility] [address] [id number] [place] [address]- 8566 October, [facility] [place] [facility] [address] [id number], [place] [address]- 0793 October, [facility] [address] [id number] [place] [address]- 7375 October, [facility] [place] [facility] [address] [id number] [place] [address]- 9849 Sep, [facility] [place] [facility] [address] [facility] [id number] [place] [address]- 4026 Sep, [facility] [place] [facility] [address] [facility] [id number] [place] [address]- 1593 Sep, [facility] [address] [id number] [place] [address]- 4958 27 Aug, 2011 [facility] [place] [facility] [address] [facility] [id number] [place] [address]- 0279 26 Aug, 2011 [facility] [id number] [place] [address]- 0948 Aug, [facility] [place] [facility] [address] [facility] [id number] [place] [address]- 5783 15 Aug, 2011 [facility] [address] [id number] [place] [address]- 9756 Aug, [facility] [address] [id number] [place] [address]- 8507 23 Jul, 2011 [facility] [place] [facility] [id number] [place] [address]- 3861 16 Jul, 2011 [facility] [place] [facility] [address] [facility] [id number] [place] [address]- 2575 13 Jul, 2011 [facility] [place] [facility] [address] [id number] [place] [address]- 4956 09 Jul, 2011 [facility] [place] [facility] [address] [facility] [id number] [place] [address]- 7528 07 Jul, 2011 [facility] [place] [facility] [address] [id number] [place] [address]- 0453 Jul, [facility] [place] [facility] [address] [id number] [place] [address]- 3292 Jul, [facility] [place] [facility] [address] [id number] [place] [address]- 4070 Jul, [facility] [place] [facility] [address] [id number] [place] [address]- 4095 Jun, [facility] [place] [facility] [address] [id number] [place] [address]- 3802 Jun, [facility] [place] [facility] [address] [id number] [place] [address]- 0899 May, [facility] [place] [facility] [address] [id number] [place] [address]- 3887 May, [facility] [place] [facility] [address] [id number] [place] [address]- 9235 May, [facility] [place] [facility] [address] [id number], [place] [address]- 3354 May, [facility] [place] [facility] [address] [id number] [place] [address]- 0552 Apr, [facility] [place] [facility] [address] [id number], [place] [address]- 6284 Apr, [facility] [place] [facility] [address] [id number], [place] [address]- 4857 Apr, [facility] [place] [facility] [address] [id number], [place] [address]- 3227 Mar, [facility] [place] [facility] [address] [id number], [place] [address]- 6864 Mar, [facility] [place] [facility] [address] [id number], [place] [address]- 2930 Mar, [facility] [place] [facility] [address] [facility] [id number], [place] [address]- 7487 Mar, [facility] [place] [facility] [address] [id number], [place] [address]- 7333 Dec, [facility] [id number], [place] [address]- 7895 October, [facility] [id number], [place] [address]- 2503 May, [facility] [address] [id number] 9097 May, [facility] [id number] [place] [address] 400800- 4730 May, [facility] [id number] [place] [address]- 5999 May, [facility] [id number] [place] [address] 030483- 2602 Mar, [facility] [id number] [place] [address] 928[address]- 6153 Mar, [facility] [id number], [place] [address]- 9744 May, [facility] [id number], [place] [address]- 4512 May, [facility] [id number], [place] [address]- 9297 May, [facility] [id number], [place] [address]- 6212 May, [facility] [id number], [place] [address]- 6988 Apr, [facility] [id number] [address] Apr, [facility] [id number] 7283 October, IMMUNIZATIONS No Known Immunizations SOCIAL HISTORY Never Assessed REASON FOR VISIT Requests return call PLAN OF CARE VITAL SIGNS MEDICATIONS Unknown [...]
--- OUTSIDE RECORDS SUMMARY | 2018-03-17 11:09 | XMS REPORT ---
Author Author THOMAS JENNINGS Organization [facility] Address [address] [place] [address] Care Team Providers [facility] [employer] Team Member Name Role Phone MICHAELA THOMAS Unavailable PROBLEMS Type Condition ICD9-CM Code HND96-JH Code Onset Dates Condition Status SNOMED Code Problem Other chronic pain G89.29 Active 32983411 Problem On home oxygen therapy Z99.81 Active 158806235140 Problem Mild chronic obstructive pulmonary disease J44.9 Active 296271266 Problem COPD (chronic obstructive pulmonary disease) with chronic bronchitis J44.9 Active 744336683 Problem History of illicit drug use Z87.898 Active 234582808 Problem COPD exacerbation J44.1 Active 299789302 Problem Neuropathy G62.9 Active 132095660 Problem Essential hypertension I10 Active 39752136 Problem 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 Active 97239071 Problem Major depressive disorder, recurrent episode, moderate F33.1 Active 194132088 Problem Impaired circulation I99.9 Active 37798120 Problem 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 Active 74850180 Problem Snoring R06.83 Active 57706516 Problem MRSA (methicillin resistant staph aureus) culture positive Z22.322 Active 841173714 Problem Fatigue R53.83 Active 47290236 Problem Varicose veins of both lower extremities I83.93 Active 84227908 Problem Dysthymic disorder F34.1 Active 07405098 Problem Upper respiratory tract infection, unspecified type J06.9 Active 86450719 Problem Panic disorder without agoraphobia F41.0 Active 65043566 Problem Mild persistent asthma without complication J45.30 Active 341357732 ALLERGIES Substance Reaction Event Type Date Status Sulfamethoxazole-Trimethoprim Unknown Drug Allergy Jan, Active Codeine Phosphate swelling Drug Allergy Jan, Active ENCOUNTERS Encounter Location Date Diagnosis [facility] [address] [facility] [id number] [address] Feb, [facility] [id number] [place] [address] 26739- 9311 Feb, [facility] [id number] [place] [address] 41842- 2648 Feb, Dysthymic disorder F34.1 [place] [id number] [place] [address] 44065- 0928 Feb, [place] [address] [address]- 5280 Jan, [facility] [place] [id number] [place] [address] 00653- 8290 Jan, Abrasion of right elbow, initial encounter S50.311A ; Abrasion, right knee, initial encounter S80.211A and Sprain of other ligament of right ankle, initial encounter S93.491A [facility] [id number] [place] [address] 02442- 2414 Jan, [facility] [id number] [place] [address] 48753 -4090 Jan, Injury of left ankle, initial encounter S99.912A ; Fall down stairs, initial encounter W10.8XXA and BMI 45.0-49.9, adult Z68.42 [place] [id number] [place] [address] 19228- 5341 Jan, COPD exacerbation J44.1 [place] [address] 91611- 7865 Jan, Dysfunction of both eustachian 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 [facility] [id number] [place] [address] 84245- 2066 Jan, Bronchitis J40 and Acute suppurative otitis media of left ear without spontaneous rupture of tympanic membrane, recurrence not specified H66.002 [place] [id number] [place] [address] 02171- 3420 Jan, [place] [address] [id number] [address] 1440 Jan, Bronchitis J40 and BMI 40.0-44.9, adult Z68.41 [place] [id number] [place] [address] 53581- 7666 Jan, [facility] [place] [id number] [place] [address] 86641- 5773 Dec, Gastric pain R10.9 [facility] [place] [id number] [place] [address] 08176- 3621 Dec, [facility] [place] [id number] [place] [address] 36628- 2258 Dec, History of illicit drug use Z87.898 ; Neuropathy G62.9 ; COPD (chronic obstructive pulmonary disease) with chronic bronchitis J44.9 and Acute pain of right knee M25.561 [place] [id number] [place] [address] 32312- 9251 Nov, [place] [id number] [place] [address] 90291- 2477 15 Nov, 2017 Onychomycosis B35.1 and Contusion of left foot, subsequent encounter S90.32XD [place] [id number] [place] [address] 97264- 5881 Nov, COPD exacerbation J44.1 [place] [id number] [place] [address] 48521- 7862 Sep, [place] [id number] [place] [address] 10513- 2560 Sep, Dysthymic disorder F34.1 ; Tobacco abuse Z72.0 ; Pain in right knee M25.561 ; Pain in left knee M25.562 ; Other chronic pain G89.29 and BMI 40.0-44.9, adult Z68.41 [place] [id number] [place] [address] 65886- 8065 Aug, Major depressive disorder, recurrent episode, moderate F33.1 and 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 [place] [id number] [place] [address] 19570- 3270 14 Aug, 2017 Dysthymic disorder F34.1 ; Non-pressure chronic ulcer of left thigh, unspecified ulcer stage L97.129 ; Tobacco abuse Z72.0 ; Mild chronic obstructive pulmonary disease J44.9 and Forgetfulness R68.[address] 29257- 5511 09 Aug, 2017 Onychomycosis B35.1 ; Fissure in skin of foot R23.4 and Foot callus L84 [facility] [address] [address] -1846 Jul, Right medial knee pain M25.561 ; Upper respiratory tract infection, unspecified type J06.9 and BMI 40.0-44.9, adult Z68.41 [facility] [address] 22489 -1759 Jul, Nausea and vomiting, intractability of vomiting not specified, unspecified vomiting type R11.2 ; Left ear pain H92.02 and Gastric pain R10.[address] 62037- 0015 Apr, Encounter for immunization Z23 [address] 56543- 0914 Apr, Onychomycosis B35.1 ; Xerosis of skin L85.3 ; Neuropathy G62.9 and 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 [place] [address] 94621- 2026 Jan, Onychomycosis B35.1 and Neuropathy G62.9 [place] [address] 68522- 8626 Dec, [place] [address] 10705- 5420 Dec, [facility] [address] [address] 1374 Nov, [facility] [address] [address] 7441 Aug, [facility] [address] 1843 Aug, [facility] [address] [place] [address] 40103- 5441 Jul, [facility] [address] [address]- 0083 Jul, [facility] [address] [address]- 2359 Jul, Decubitus ulcer of left thigh, stage 2 L89.892 [facility] [address] [address]- 2699 17 Jul, 2016 Decubitus ulcer of left thigh, stage 2 L89.892 [facility] [address] [address]- 8437 17 Jul, 2016 [facility] [address] [address]- 3354 15 Jul, 2016 Decubitus ulcer of left thigh, stage 2 L89.892 [facility] [address] [address]- 2969 14 Jul, 2016 [facility] [address] [address]- 1286 13 Jul, 2016 Cellulitis of other specified site L03.818 ; Illicit drug use F19.90 and Decubitus ulcer of left thigh, stage 2 L89.892 [facility] [address] [address]- 6990 08 Jul, 2016 [facility] [id number] [place] [address] 28554- 0741 Jul, Cellulitis of right breast N61.0 [facility] [id number] [place] [address] 15492- 5643 Jun, [facility] [id number] [place] [address] 65091- 2858 Jun, [facility] [address] 84692- 3560 Jun, Wheezing R06.2 and Arthralgia, unspecified joint M25.50 [facility] [address] 85572- 9627 May, [place] [address] 69800- 8204 May, [place] [address] 50639- 8195 May, [facility] [address] 68532- 6471 May, Shortness of breath R06.02 [place] [address] 90706- 9172 May, Onychomycosis B35.1 and Fissure in skin of foot R23.4 [place] [id number] [place] [address] 75894- 5587 Apr, [facility] [address] 87732 -5240 18 Apr, 2016 Dizziness R42 [facility] [id number] [place] [address] 55137- 1513 14 Apr, 2016 Shortness of breath R06.02 ; Essential hypertension I10 ; Dizziness R42 and On home oxygen therapy Z99.81 [facility] [id number] [place] [address] 52854- 4743 Apr, [facility] [address] 83449- 8272 Apr, [facility] [address] [address]- 2285 Apr, [facility] [address] [address]- 2661 Apr, [facility] [address] [address]- 5472 Apr, [facility] [address] [address]- 8247 Apr, [facility] [address], [place] [address]- 9732 Apr, [facility] [address], [place] [address]- 2946 Mar, Mild chronic obstructive pulmonary disease J44.9 [facility] [id number] [address]- 6327 Mar, [facility] [address] [address]- 6702 Mar, Epigastric pain R10.13 ; Low back pain M54.5 ; Other chronic pain G89.29 and Breast cancer screening Z12.39 [facility] [address], [place] [address]- 8162 Mar, [facility] [address], [place] [address]- 2333 Mar, [facility] [address] [address]- 1095 Feb, [facility] [address] [address]- 7122 Feb, [facility] [address] [address]- 4609 Feb, 2016 Fissure in skin of foot R23.4 and Onychomycosis B35.1 [facility] [id number] [place] [address] 70847- 8839 Jan, 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 [facility] [id number] [place] [address] 12388- 6736 Dec, 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 [facility] [id number] [place] [address] 30358- 7723 07 Dec, 2015 Mild persistent asthma without complication J45.30 ; Dysthymic disorder F34.1 and Upper respiratory tract infection, unspecified type J06.9 [facility] [id number] [place] [address] 18359- 6835 Nov, 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 [facility] [id number] [place] [address] 82205- 9515 October, 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 [facility] [id number] [place] [address] 71135- 5188 Sep, Panic disorder without agoraphobia F41.0 ; 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 and Dysthymic disorder F34.1 [facility] [id number] [place] [address] 93971- 4914 Sep, Panic attacks F41.0 [facility] [id number] [place] [address] 32483- 3495 Sep, [facility] [id number] [place] [address] 31755- 0727 Sep, Panic disorder without agoraphobia F41.0 ; Varicose veins of both lower extremities I83.93 and Fatigue R53.83 [facility] [id number] [place] [address] 02403- 0495 14 Sep, 2015 Fatigue R53.83 [facility] [id number] [place] [address] 13093- 2971 05 Sep, 2015 [facility] [id number] [place] [address] 40690- 4054 Aug, [place] [address] [place] [address] 90016- 1931 Aug, [place] [id number] [place] [address] 36281- 3584 Aug, 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 [place] [id number] [place] [address] 52927- 1406 Aug, Panic disorder without agoraphobia F41.0 ; 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 and Dysthymic disorder F34.1 [place] [id number] [place] [address] 00786- 8948 Aug, Shortness of breath R06.02 ; Panic attacks F41.0 ; COPD ( chronic obstructive pulmonary disease) J44.9 ; Tobacco abuse Z72.0 ; Family history of diabetes mellitus Z83.3 and Weight gain R63.5 [place] [id number] [place] [address] 61088- 3643 Aug, [place] [id number] [place] [address] 30384- 5973 Jul, [place] [id number] [place] [address] 05055- 8013 Jun, Onychomycosis B35.1 ; Neuropathy G62.9 and Impaired circulation I99.9 [place] [id number] [place] [address] 55703- 9306 09 Mar, 2015 Fissure in skin of foot R23.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 [place] [id number] [place] [address] 08436- 6259 18 Feb, 2015 Family history of coronary arteriosclerosis V17.3 [place] [id number] [place] [address] 33274- 3889 15 Feb, 2015 Allergic rhinitis due to pollen 477.0 ; Unspecified breast screening V76.10 ; Anxiety 300.00 and Family history of coronary arteriosclerosis V17.3 [facility] [address] [facility] [id number] [address]- 0360 Jan, [facility] [id number] [address]- 0163 Dec, [facility] [id number] [address]- 8210 Dec, Onychomycosis 110.1 and Skin fissures 709.8 [facility] [address] [id number] [address]- 8314 Sep, [facility] [address] [facility] [id number] [place] [address] 56471- 0561 Sep, [facility] [address] [address]- 3130 Aug, [facility] [address] [address]- 6750 Aug, [facility] [address] [address]- 2368 Jul, [facility] [address] [address]- 0515 Jul, [facility] [address] [address]- 0279 Jun, [facility] [address] [address]- 0633 Jun, [facility] [address] [facility] [id number], [place] [address]- 3355 Jun, [facility] [id number] [address]- 9164 Jun, [facility] [id number] 1160 Jun, [facility] [address] [address]- 7003 May, [facility] [place] [facility] [address] [id number] [place] [address]- 4994 May, [facility] [place] [facility] [address] [id number] [place] [address]- 8376 May, [facility] [place] [facility] [address] [id number] [place] [address]- 9672 May, [facility] [place] [facility] [address] [id number] [place] [address]- 9876 May, [facility] [place] [facility] [address] [id number] [place] [address]- 1297 May, [facility] [place] [facility] [address] [id number] [place] [address]- 9652 May, [facility] [place] [facility] [address] [id number] [place] [address]- 2698 May, [facility] [place] [facility] [address] [id number] [place] [address]- 8216 Apr, [facility] [place] [facility] [address] [id number] [place] [address]- 6043 Apr, [facility] [place] [facility] [address] [id number] [place] [address]- 2461 Apr, [facility] [place] [facility] [address] [id number] [place] [address]- 5889 Apr, [facility] [place] [facility] [address] [id number] [place] [address]- 5240 Apr, [facility] [place] [facility] [address] [id number] [place] [address]- 1527 Apr, [facility] [place] [facility] [address] [id number] [place] [address]- 3305 Apr, [facility] [place] [facility] [address] [id number] [place] [address]- 2754 Apr, [facility] [place] [facility] [address] [id number] [place] [address]- 1463 Apr, [facility] [place] [facility] [address] [id number] [place] [address]- 6211 Apr, [facility] [place] [facility] [address] [id number] [place] [address]- 3009 Mar, [facility] [place] [facility] [address] [id number] [place] [address]- 2654 Mar, [facility] [place] [facility] [address] [id number] [place] [address]- 2917 Mar, [facility] [place] [facility] [address] [id number] [place] [address]- 8913 Mar, [facility] [place] [facility] [address] [id number] [place] [address]- 9916 Mar, [facility] [place] [facility] [address] [id number] [place] [address]- 6428 Mar, [facility] [place] [facility] [address] [id number] [place] [address]- 0524 Mar, [facility] [place] [facility] [address] [id number] [place] [address]- 2351 Mar, [facility] [place] [facility] [address] [id number] [place] [address]- 2338 Mar, [facility] [place] [facility] [address] [id number] [place] [address]- 8376 Mar, [facility] [place] [facility] [address] [id number] [place] [address]- 5879 Mar, [facility] [place] [facility] [address] [id number] [place] [address]- 8192 Mar, [facility] [place] [facility] [address] [id number] [place] [address]- 0030 Mar, [facility] [place] [facility] [address] [id number] [place] [address]- 4532 Mar, [facility] [place] [facility] [address] [id number] [place] [address]- 4853 22 Mar, 2013 [facility] [place] [facility] [address] [id number] [place] [address]- 9905 20 Mar, 2013 [facility] [place] [facility] [address] [id number] [place] [address]- 0977 20 Mar, 2014 [facility] [place] [facility] [address] [id number] [place] [address]- 1670 16 Mar, 2014 [facility] [place] [facility] [address] [id number] [place] [address]- 3897 16 Mar, 2014 [facility] [place] [facility] [address] [id number] [place] [address]- 9312 15 Mar, 2014 [facility] [place] [facility] [address] [id number] [place] [address]- 3464 14 Mar, 2014 [facility] [place] [facility] [address] [id number] [place] [address]- 8264 14 Mar, 2014 [facility] [place] [facility] [address] [id number] [place] [address]- 3004 14 Mar, 2014 [facility] [place] [facility] [address] [id number], [place] [address]- 6400 14 Mar, 2014 [facility] [place] [facility] [address] [id number] [address]- 4093 09 Mar, 2014 [facility] [place] [facility] [address] [id number], [place] [address]- 6088 09 Mar, 2014 [facility] [place] [facility] [address] [id number] [place] [address]- 7996 Mar, [facility] [place] [facility] [address] [id number], [place] [address]- 5034 Mar, [facility] [place] [facility] [address] [id number] [place] [address]- 5897 30 Feb, 2014 [facility] [place] [facility] [address] [id number] [place] [address]- 8465 30 Sep, 2013 [facility] [place] [facility] [address] [id number] [place] [address]- 4557 30 Sep, 2013 [facility] [place] [facility] [address] [id number] [place] [address]- 1666 30 Feb, 2013 [facility] [place] [facility] [address] [id number] [place] [address]- 2228 Feb, 2013 [facility] [place] [facility] [address] [id number] [place] [address]- 3640 26 Feb, 2013 [facility] [place] [facility] [address] [id number] [place] [address]- 1059 Feb, 2013 [facility] [place] [facility] [address] [id number] [place] [address]- 1875 Feb, 2013 [facility] [place] [facility] [address] [id number] [place] [address]- 0518 Feb, 2013 [facility] [place] [facility] [address] [id number] [place] [address]- 5909 Feb, 2013 [facility] [place] [facility] [address] [id number] [place] [address]- 5291 Feb, 2013 [facility] [place] [facility] [address] [id number] [place] [address] Feb, 2013 [facility] [place] [facility] [address] [id number] [place] [address] Jan, [facility] [place] [facility] [address] [id number] [place] [address] Jan, [facility] [place] [facility] [address] [id number] [place] [address] Jan, [facility] [place] [facility] [address] [id number] [place] [address] Jan, [facility] [place] [facility] [address] [id number] [place] [address] Jan, [facility] [place] [facility] [address] [id number] [facility] [place] [address] Jan, [facility] [place] [facility] [address] [id number] [place] [address] Jan, [facility] [place] [facility] [address] [id number] [place] [address] Jan, [facility] [place] [facility] [address] [id number] [place] [address] Jan, [facility] [place] [facility] [address] [id number] [place] [address] Jan, [facility] [place] [facility] [address] [id number] [place] [address] Jan, [facility] [place] [facility] [address] [id number] [place] [address] Jan, [facility] [place] [facility] [address] [id number] [place] [address] Jan, [facility] [place] [facility] [address] [id number] [place] [address] Dec, [facility] [place] [facility] [address] [id number] [place] [address] Dec, [facility] [place] [facility] [address] [id number] [place] [address] Dec, [facility] [place] [facility] [address] [id number] [place] [address] Dec, [facility] [place] [facility] [address] [id number] [place] [address] Dec, [facility] [place] [facility] [address] [id number] [place] [address] Dec, [facility] [place] [facility] [address] [id number] [place] [address] Dec, [facility] [place] [facility] [address] [id number] [place] [address]- [address] Dec, [facility] [place] [facility] [address] [id number] [place] [address]- [address] Dec, [facility] [place] [facility] [address] [id number] [place] [address] Dec, [facility] [place] [facility] [address] [id number] [place] [address] Dec, 2013 [facility] [place] [facility] [address] [id number] [place] [address] Dec, 2013 [facility] [place] [facility] [address] [id number] [place] [address] Dec, [facility] [place] [facility] [address] [id number] [place] [address] Dec, [facility] [place] [facility] [address] [id number] [place] [address] Dec, [facility] [place] [facility] [address] [id number] [place] [address] Dec, [facility] [place] [facility] [address] [id number] [place] [address] Dec, [facility] [place] [facility] [address] [id number] [place] [address] Dec, [facility] [place] [facility] [address] [id number] [place] [address] Nov, [facility] [place] [facility] [address] [id number] [place] [address] Nov, [facility] [place] [facility] [address] [id number] [place] [address] Nov, [facility] [place] [facility] [address] [id number] [place] [address] Nov, [facility] [place] [facility] [address] [id number] [place] [address] Nov, [facility] [place] [facility] [address] [id number] [place] [address] Nov, [facility] [place] [facility] [address] [id number] [place] [address] Nov, [facility] [place] [facility] [address] [id number] [place] [address] Nov, [facility] [place] [facility] [address] [id number] [place] [address]23 Nov, [facility] [place] [facility] [address] [id number] [place] [address] 9934 Nov, [facility] [place] [facility] [address] [id number] [place] [address] 8257 Nov, [facility] [place] [facility] [address] [id number] [place] [address]- 7564 Nov, [facility] [place] [facility] [address] [id number] [place] [address] 1390 Nov, [facility] [place] [facility] [address] [id number] [place] [address]- 4[address] Nov, [facility] [place] [facility] [address] [id number] [place] [address]- 8692 Nov, [facility] [place] [facility] [address] [id number] [place] [address] 8272 Nov, [facility] [place] [facility] [address] [id number] [place] [address]- 0728 Nov, [facility] [place] [facility] [address] [id number] [place] [address]- 3633 Nov, [facility] [place] [facility] [address] [id number] [place] [address] 6104 Nov, [facility] [place] [facility] [address] [id number] [place] [address]- 6793 Nov, [facility] [place] [facility] [address] [id number] [place] [address] 1210 October, [facility] [place] [facility] [address] [id number] [place] [address]- 4566 October, [facility] [place] [facility] [address] [id number] [place] [address]- 0113 October, [facility] [place] [facility] [address] [id number] [place] [address] October, [facility] [place] [facility] [address] [id number] [place] [address]- 2185 Sep, [facility] [place] [facility] [address] [id number] [place] [address]- 9628 Sep, [facility] [place] [facility] [address] [id number] [place] [address]- 1569 Sep, [facility] [place] [facility] [address] [id number] [place] [address]- 6283 Sep, [facility] [place] [facility] [address] [id number] [place] [address]- 5979 Sep, [facility] [place] [facility] [address] [id number] [place] [address]- 1104 Sep, [facility] [place] [facility] [address] [id number] [place] [address]- 0265 Sep, [facility] [place] [facility] [address] [id number] [place] [address]- 1891 Sep, [facility] [place] [facility] [address] [id number] [place] [address]- 5586 Sep, [facility] [place] [facility] [address] [id number] [place] [address]- 1202 Aug, [facility] [place] [facility] [address] [id number] [place] [address]- 0651 Aug, [facility] [place] [facility] [address] [id number] [place] [address] Aug, [facility] [place] [facility] [address] [id number] [address] Aug, [facility] [place] [facility] [address] [id number] [place] [address]- 3508 Aug, [facility] [place] [facility] [address] [id number] [place] [address]- 9866 Aug, [facility] [place] [facility] [address] [id number] [place] [address]- 0366 Aug, [facility] [place] [facility] [address] [id number] [place] [address]- 8894 Aug, [facility] [place] [facility] [address] [id number] [place] [address]- 7841 Jul, [facility] [place] [facility] [address] [id number] [place] [address]- 2352 Jul, [facility] [place] [facility] [address] [id number] [place] [address]- 5331 Jun, [facility] [place] [facility] [address] [id number] [place] [address]- 1507 Jun, [facility] [place] [facility] [address] [id number] [place] [address]- 7221 Jun, [facility] [place] [facility] [address] [id number] [place] [address]- 4569 Jun, [facility] [place] [facility] [address] [id number] [place] [address]- 1434 Jun, [facility] [place] [facility] [address] [id number] [address]- 6665 Jun, [facility] [place] [facility] [address] [id number] [place] [address]- 7819 Jun, [facility] [place] [facility] [address] [id number] [place] [address]- 2958 Jun, [facility] [place] [facility] [address] [id number] [place] [address]- 7146 Jun, [facility] [place] [facility] [address] [id number] [place] [address]- 3434 Jun, [facility] [place] [facility] [address] [id number] [place] [address]- 4344 Jun, [facility] [place] [facility] [address] [id number] [place] [address]- 0026 Jun, [facility] [place] [facility] [address] [id number] [place] [address]- 3707 May, [facility] [place] [facility] [address] [id number] [place] [address]- 2156 May, [facility] [place] [facility] [address] [id number] [place] [address]- 1807 May, [facility] [place] [facility] [address] [id number] [place] [address]- 6176 May, [facility] [place] [facility] [address] [id number] [place] [address]- 9771 May, [facility] [place] [facility] [address] [id number] [place] [address]- 8837 May, [facility] [place] [facility] [address] [id number] [place] [address]- 2054 26 May, 2013 [facility] [place] [facility] [address] [id number] [place] [address] 8924 May, [facility] [place] [facility] [address] [id number] [place] [address]- 2349 23 May, 2013 [facility] [place] [facility] [address] [id number] [place] [address]- 4376 16 May, 2013 [facility] [place] [facility] [address] [id number] [place] [address]- 6556 16 May, 2013 [facility] [place] [facility] [address] [id number] [place] [address]- 6416 16 May, 2013 [facility] [place] [facility] [address] [id number] [place] [address] 3350 May, [facility] [place] [facility] [address] [id number] [place] [address]- 0947 Apr, [facility] [place] [facility] [address] [id number] [place] [address]- 2368 Apr, [facility] [place] [facility] [address] [id number] [place] [address] Mar, [facility] [place] [facility] [address] [id number] [place] [address]- 7126 Mar, [facility] [place] [facility] [address] [id number] [place] [address]- 7728 Feb, [facility] [place] [facility] [address] [id number] [place] [address]- 2236 Feb, [facility] [place] [facility] [address] [id number] [place] [address]- 6378 Feb, [facility] [place] [facility] [address] [id number] [place] [address]- 9599 Feb, [facility] [place] [facility] [address] [id number] [place] [address]- 3003 Jan, [facility] [place] [facility] [address] [id number] [place] [address]- 1727 Jan, [facility] [place] [facility] [address] [id number] [address]- 9916 Jan, [facility] [place] [facility] [address] [id number] [address]- 8136 Jan, [facility] [place] [facility] [address] [id number] [place] [address]- 0902 Jan, [facility] [place] [facility] [address] [id number] [address]- 2272 Jan, [facility] [place] [facility] [address] [id number] [place] [address]- 1087 Dec, [facility] [place] [facility] [address] [id number] [place] [address]- 2328 Dec, [facility] [address] [id number] [place] [address]- 6880 Dec, [facility] [place] [facility] [address] [id number] [place] [address]- 5161 Dec, [facility] [address] [id number] [place] [address]- 6998 Nov, [facility] [place] [facility] [address] [id number] [place] [address]- 0439 October, [facility] [address] [id number] [place] [address]- 0522 October, [facility] [address] [id number] [place] [address]- 3250 October, [facility] [address] [id number] [place] [address]- 3551 Sep, [facility] [address] [id number] [place] [address]- 5428 Sep, [facility] [place] [facility] [address] [id number] [place] [address]- 1804 Jun, [facility] [address] [id number] [place] [address]- 7222 Jun, [facility] [address] [id number] [place] [address]- 3683 Jun, [facility] [place] [facility] [address] [id number] [place] [address]- 0654 Apr, [facility] [place] [facility] [address] [id number] [place] [address]- 1186 Apr, [facility] [place] [facility] [address] [id number] [place] [address]- 6532 Apr, [facility] [address] [id number] [place] [address]- 8336 Apr, [facility] [place] [facility] [address] [id number] [place] [address]- 8781 Mar, [facility] [place] [facility] [address] [id number] [place] [address]- 8575 Mar, [facility] [place] [facility] [address] [id number] [place] [address]- 1642 Mar, [facility] [place] [facility] [address] [id number] [place] [address], [place] [address]- 5195 Mar, [facility] [place] [facility] [address] [id number] [place] [address]- 0070 Feb, [facility] [place] [facility] [address] [id number] [place] [address]- 9664 Feb, [facility] [place] [facility] [address] [id number] [place] [address]- 5161 Feb, [facility] [place] [facility] [address] [id number] [place] [address]- 7907 Jan, [facility] [place] [facility] [address] [id number] [place] [address]- 3561 Jan, [facility] [place] [facility] [address] [id number] [place] [address]- 3673 Jan, [facility] [place] [facility] [address] [id number] [place] [address]- 9859 Jan, [facility] [place] [facility] [address] [id number] [place] [address]- 0263 Dec, [facility] [place] [facility] [address] [id number] [place] [address]- 9170 Dec, [facility] [place] [facility] [address] [id number] [place] [address]- 6576 Nov, [facility] [place] [facility] [address] [id number] [place] [address]- 0771 Nov, [facility] [place] [facility] [address] [id number] [place] [address]- 4889 October, [facility] [address] [id number] [place] [address]- 4928 October, [facility] [place] [facility] [address] [id number] [place] [address]- 4498 October, [facility] [place] [facility] [address] [id number] [place] [address]- 6220 Sep, [facility] [place] [facility] [address] [id number] [place] [address]- 1773 Sep, [facility] [place] [facility] [address] [id number] [place] [address]- 9096 Sep, [facility] [address] [id number] [place] [address]- 7730 Aug, [facility] [address] [id number] [place] [address]- 4107 Aug, [facility] [place] [facility] [address] [id number] [place] [address]- 3669 Aug, [facility] [place] [facility] [address] [id number] [place] [address]- 9978 Aug, [facility] [place] [facility] [address] [facility] [id number] [place] [address]- 1927 Aug, [facility] [address] [id number] [place] [address]- 2072 Jul, [facility] [place] [facility] [address] [id number] [place] [address]- 1784 16 Jul, 2011 [facility] [place] [facility] [address] [id number] [place] [address]- 4251 Jul, [facility] [place] [facility] [address] [id number] [place] [address]- 6976 Jul, [facility] [place] [facility] [address] [facility] [id number] [place] [address] 07 Jul, 2011 [facility] [place] [facility] [address] [id number] [place] [address]- 6798 Jul, [facility] [place] [facility] [address] [id number] [place] [address]- 7123 Jul, [facility] [place] [facility] [address] [id number] [place] [address]- 8312 Jul, [facility] [place] [facility] [address] [id number] [place] [address]- 0501 Jun, [facility] [place] [facility] [address] [id number] [place] [address]- 0600 Jun, [facility] [place] [facility] [address] [id number] [place] [address]- 7152 May, [facility] [place] [facility] [address] [id number] [place] [address]- 8013 May, [facility] [place] [facility] [address] [id number] [place] [address]- 1922 May, [facility] [place] [facility] [address] [id number] [place] [address]- 2417 May, [facility] [place] [facility] [address] [id number] [place] [address]- 4245 Apr, [facility] [place] [facility] [address] [id number] [place] [address]- 2654 Apr, [facility] [place] [facility] [address] [id number], [place] [address]- 3975 Apr, [facility] [place] [facility] [address] [id number] [place] [address]- 0517 Mar, [facility] [place] [facility] [address] [id number] [place] [address]- 8494 Mar, [facility] [place] [facility] [address] [id number] [place] [address]- 0856 Mar, [facility] [place] [facility] [address] [id number], [place] [address] 2011 [facility] [address] [facility] [id number], [place] [address]- 0976 Dec, [facility] [address] [facility] [id number], [place] [address]- 5296 October, [facility] [address] [facility] [id number], [place] [address]- 6306 May, [facility] [address] [facility] [id number], [place] [address] 2546 May, [facility] [address] [facility] [id number] [place] [address]- 8296 May, [facility] [address] [facility] [id number], [place] [address]- 8436 May, [facility] [address] [facility] [id number] [address]- 5497 Mar, [facility] [address] [facility] [id number] [address]- 4865 Mar, [facility] [address] [facility] [id number] [address]- 9057 May, [facility] [address] [facility] [id number], [place] [address]- 4056 May, [facility] [address] [facility] [id number], [place] [address]- 6003 May, [facility] [address] [facility] [id number] 7088 May, [facility] [address] [facility] [id number][place] [address]- 1165 Apr, [facility] [address] [facility] [id number], [place] [address]- 2275 Apr, [facility] [address] [facility] [id number], [place] [address]- 8595 October, IMMUNIZATIONS No Known Immunizations SOCIAL HISTORY Never Assessed REASON FOR VISIT Stomach ache, cramping with regular bowel movements. CARI Garcia, Shortness of air. PLAN OF CARE VITAL SIGNS Height 64 in 2018-01-11 Weight 258.7 lbs 2018-01-11 Temperature 97 degrees Fahrenheit 2018-01-11 Heart Rate 83 bpm 2018-01-11 Respiratory Rate 24 2018-01-11 Oximetry 92 % 2018-01-11 BMI 44.40 kg/m2 2018-01-11 Blood pressure systolic 100 mmHg 2018-01-11 Blood pressure diastolic 70 mmHg 2018-01-11 MEDICATIONS Medication Instructions Dosage Frequency Start Date End Date Duration Status PredniSONE 20 mg Orally Once a day 2 tablets 24h Jan, Jan, 05 days Active Ranitidine HCl 150 MG Orally 2 times a day 1 tablet 12h 30 days Active Fluoxetine HCl 20 mg Orally Once a day 1 capsule in the morning 24h Aug 90 days Active Ventolin HFA 108 (90 Base) MCG/ACT Inhalation every 4 hrs 2 puffs as needed 4h Dec, 90 days Active Estradiol 0.5 MG 1 tablet Active Meloxicam 7.5 MG Orally Once a day 1 tablet 24h Active Nitrofurantoin Monohyd Macro 100 mg Orally Once a day 1 capsule with supper 24h Active Omeprazole 20 MG Orally Once a day 1 capsule 24h Jan, 30 day(s ) Active Gabapentin 300 MG Orally Once a day 1 capsule at bedtime 24h Active Cyclobenzaprine HCl 10 MG Orally every 6 hrs 1 tablet as needed for spasms 6h Active Montelukast Sodium 10 MG Orally Once a day 1 tablet in the evening 24h 90 days Active Albuterol Sulfate (2.5 MG/3ML) 0.083% Inhalation every 6 hrs 3 ml as needed 6h Apr, Active Quinapril HCl 20 mg Orally Once a day 2 tablets 24h Active Simvastatin 40 mg Orally Once a day 1 tablet in the evening 24h 30 Active Tramadol HCl 50 mg Orally 2 times a day 1 tablet as needed 12h Active Nebulizer - as directed for use with inhaled medications Mar, lifetime Active Symbicort 160-4.5 MCG/ACT Inhalation Twice a day 2 puffs 12h Jun, 90 days Active Ropinirole HCl 0.5 MG Orally Once a day 1 tablet 1 to 3 hours before bedtime 24h 30 days Active Oxygen ... 2L with nasal cannula Active HydrOXYzine HCl 50 MG Orally 2 times a day 1 tablet 12h 30 days Active Zithromax Z-Mihir 250 MG Orally Once a day 2 tablets on the first day, then 1 tablet daily for 4 days 24h Jan, Jan, 5 day(s) Active Toviaz 4 MG Orally Once a day 1 tablet 24h Active RESULTS No Results PROCEDURES Procedure Date Ordered Result Body Site NEBULIZER TREATMENT 2018-01-11 improved NEB/MDI RX INITIAL Jan 11, 2018 [facility] VISIT ESTABLISHED PATIENT Jan 11, 2018 INSTRUCTIONS MEDICATIONS ADMINISTERED No Known Medications [...]
--- OUTSIDE RECORDS SUMMARY | 2018-03-17 11:10 | XMS REPORT ---
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 Name Role Phone THOMAS JENNINGS Unavailable PROBLEMS Type Condition ICD9-CM Code BGX65-WP Code Onset Dates Condition Status SNOMED Code Problem Other chronic pain G89.29 Active 23343200 Problem On home oxygen therapy Z99.81 Active 828658817709 Problem Mild chronic obstructive pulmonary disease J44.9 Active 864527728 Problem COPD (chronic obstructive pulmonary disease) with chronic bronchitis J44.9 Active 586956877 Problem History of illicit drug use Z87.898 Active 806896168 Problem COPD exacerbation J44.1 Active 717279230 Problem Neuropathy G62.9 Active 799448063 Problem Essential hypertension I10 Active 93053058 Problem 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 Active 11066925 Problem Major depressive disorder, recurrent episode, moderate F33.1 Active 135600155 Problem Impaired circulation I99.9 Active 14728925 Problem 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 Active 13868039 Problem Snoring R06.83 Active 92623086 Problem MRSA (methicillin resistant staph aureus) culture positive Z22.322 Active 339644301 Problem Fatigue R53.83 Active 00302746 Problem Varicose veins of both lower extremities I83.93 Active 56706299 Problem Dysthymic disorder F34.1 Active 24777746 Problem Upper respiratory tract infection, unspecified type J06.9 Active 28417826 Problem Panic disorder without agoraphobia F41.0 Active 55999185 Problem Mild persistent asthma without complication J45.30 Active 059804693 ALLERGIES No Information ENCOUNTERS Encounter Location Date Diagnosis [facility] [address] [facility] [id number] [address] Feb, [facility] [address] [facility] [id number], [place] [address] Feb, [place] [address] [place] [id number] [place] [address] 90656- 6475 Feb, Dysthymic disorder F34.1 [place] [address] [address]- 9934 Feb, [place] [address] 7[address]98- 7339 Jan, [place] [address] 25062- 7596 Jan, Abrasion of right elbow, initial encounter S50.311A ; Abrasion, right knee, initial encounter S80.211A and Sprain of other ligament of right ankle, initial encounter S93.491A [place] [address] [address]- [address]605 Jan, [facility] IN [facility] [address] [address] Jan, Injury of left ankle, initial encounter S99.912A ; Fall down stairs, initial encounter W10.8XXA and BMI 45.0-49.9, adult Z68.42 [place] [address] 33896- 1603 Jan, COPD exacerbation J44.1 [place] [address] [address]- 5462 Jan, Dysfunction of both eustachian 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 [place] [address] 83895- 1412 Jan, Bronchitis J40 and Acute suppurative otitis media of left ear without spontaneous rupture of tympanic membrane, recurrence not specified H66.002 [place] [address] [place] [id number] [place] [address] 92068- 6228 Jan, [place] [address] 35354- 9661 Jan, Bronchitis J40 and BMI 40.0-44.9, adult Z68.41 [place] [address] [place] [id number] [place] [address] 73914- 2531 Jan, [place] [address] 93369- 4849 Dec, Gastric pain R10.9 [place] [address] 25655- 8293 Dec, [place] [address] 30092- 1330 Dec, History of illicit drug use Z87.898 ; Neuropathy G62.9 ; COPD (chronic obstructive pulmonary disease) with chronic bronchitis J44.9 and Acute pain of right knee M25.[address] [address]- 1001 Nov, [address] 8[address]79- 5777 Nov, Onychomycosis B35.1 and Contusion of left foot, subsequent encounter S90.32XD [address] 42460- 6352 Nov, COPD exacerbation J44.1 [place] [address] 82643- 0216 Sep, [address] 67[address]- 1042 Sep, Dysthymic disorder F34.1 ; Tobacco abuse Z72.0 ; Pain in right knee M25.561 ; Pain in left knee M25.562 ; Other chronic pain G89.29 and BMI 40.0-44.9, adult Z68.41 [place] [address] [place] [id number] [place] [address] 81994- 9655 Aug, Major depressive disorder, recurrent episode, moderate F33.1 and 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 [place] [address]- 6[address] 14 Aug, 2017 Dysthymic disorder F34.1 ; Non-pressure chronic ulcer of left thigh, unspecified ulcer stage L97.129 ; Tobacco abuse Z72.0 ; Mild chronic obstructive pulmonary disease J44.9 and Forgetfulness R68.89 [place] [address] [place] [id number] [place] [address] 77383- 2743 09 Aug, 2017 Onychomycosis B35.1 ; Fissure in skin of foot R23.4 and Foot callus L84 [facility] [place] [id number] [place] [address] 78906 -2202 Jul, Right medial knee pain M25.561 ; Upper respiratory tract infection, unspecified type J06.9 and BMI 40.0-44.9, adult Z68.41 [facility] [address] [address] Jul, Nausea and vomiting, intractability of vomiting not specified, unspecified vomiting type R11.2 ; Left ear pain H92.02 and Gastric pain R10.9 [place] [address] 44493- 8744 Apr, Encounter for immunization Z23 [place] [address] [place] [id number] [place] [address] 11768- 1199 Apr, Onychomycosis B35.1 ; Xerosis of skin L85.3 ; Neuropathy G62.9 and 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 [place] [address] [place] [id number] [place] [address] 75619- 8485 Jan, Onychomycosis B35.1 and Neuropathy G62.9 [place] [address] 12934- 6793 Dec, [place] [address] 60789- 4946 Dec, [place] [address] 79365- 6199 Nov, [facility] [address] [address] Aug, [facility] [address], [place] [address] 4232 Aug, [facility] [address], [place] [address] 8409 Jul, [facility] [address] [place] [address] 45860- 4457 Jul, [facility] [address] [place] [address] 41153- 7706 Jul, Decubitus ulcer of left thigh, stage 2 L89.892 [facility] [address], [place] [address]47 Jul, Decubitus ulcer of left thigh, stage 2 L89.892 [facility] [address], [place] [address]- 4626 17 Jul, 2016 [facility] [address] [place] [address] 74341- 9173 15 Jul, 2016 Decubitus ulcer of left thigh, stage 2 L89.892 [facility] [address], [place] [address]- 4939 14 Jul, 2016 [facility] [address], [place] [address]- 2691 13 Jul, 2016 Cellulitis of other specified site L03.818 ; Illicit drug use F19.90 and Decubitus ulcer of left thigh, stage 2 L89.892 [facility] [address], [place] [address]- 3278 08 Jul, 2016 [facility] [address], [place] [address]- 7048 06 Jul, 2016 Cellulitis of right breast N61.0 [facility] [address] [place] [id number] [place] [address] 26332- 2408 Jun, [facility] [address] [place] [id number] [place] [address] 13275- 9471 Jun, [facility] [address] [place] [id number] [place] [address] 08685- 2730 Jun, Wheezing R06.2 and Arthralgia, unspecified joint M25.50 [facility] [address] 05858- 0532 May, [facility] [address] [place] [id number] [place] [address] 32674- 8276 May, [place] [address] [place] [id number] [place] [address] 79916- 2025 May, [place] [address] [place] [id number] [place] [address] 93971- 0210 May, Shortness of breath R06.02 [facility] [address] [place] [id number] [place] [address] 87920- 6284 May, Onychomycosis B35.1 and Fissure in skin of foot R23.4 [place] [address] [place] [id number] [place] [address] 19251- 7077 Apr, [facility] [address] [place] [id number] [place] [address] 31984 -9369 Apr, Dizziness R42 [place] [address] [place] [id number] [place] [address] 17577- 6297 14 Apr, 2016 Shortness of breath R06.02 ; Essential hypertension I10 ; Dizziness R42 and On home oxygen therapy Z99.81 [place] [address] [place] [id number] [place] [address] 27791- 6835 Apr, [place] [address] [place] [id number] [place] [address] 35366- 9467 08 Apr, 2016 [facility] [address] [place] [id number] [place] [address] 53006- 6057 Apr, [facility] [address] [place] [id number] [place] [address] 31731- 8806 Apr, [facility] [address] [place] [id number] [place] [address] 65638- 7783 Apr, [facility] [address] [place] [id number] [place] [address] 82580- 8294 Apr, [facility] [address] [place] [id number] [place] [address] 13417- 1392 Apr, [facility] [address] [place] [id number] [place] [address] 63215- 0778 Mar, Mild chronic obstructive pulmonary disease J44.9 [facility] [address] [place] [id number] [place] [address] 34199- 6323 Mar, [facility] [address] [place] [id number] [place] [address] 13447- 8032 Mar, Epigastric pain R10.13 ; Low back pain M54.5 ; Other chronic pain G89.29 and Breast cancer screening Z12.39 [facility] [address] [place] [id number] [place] [address] 35190- 7289 Mar, [facility] [address] [place] [id number] [place] [address] 43729- 1339 Mar, [facility] [address] [place] [id number] [place] [address] 71603- 3652 Feb, [facility] [address] [place] [address] 58472- 8947 Feb, [facility] [address] [place] [id number] [place] [address] 43513- 2983 Feb, 2016 Fissure in skin of foot R23.4 and Onychomycosis B35.1 [facility] [address], [place] [address]- 8962 Jan, 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 [facility] [address] [place] [address] 60090- 4576 Dec, 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 [facility] [address] [place] [id number] [place] [address] 09320- 6223 Dec, Mild persistent asthma without complication J45.30 ; Dysthymic disorder F34.1 and Upper respiratory tract infection, unspecified type J06.9 [facility] [address] [place] [id number] [place] [address] 14711- 5632 Nov, 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 [facility] [address] [place] [id number] [place] [address] 20943- 6978 October, 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 [place] [address] [place] [id number] [place] [address] 24292- 9859 Sep, Panic disorder without agoraphobia F41.0 ; 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 and Dysthymic disorder F34.1 [place] [address] [place] [id number] [place] [address] 65267- 9214 Sep, Panic attacks F41.0 [place] [address] [place] [id number] [place] [address] 13641- 2906 Sep, [facility] [address] [place] [id number] [place] [address] 60217- 4433 Sep, Panic disorder without agoraphobia F41.0 ; Varicose veins of both lower extremities I83.93 and Fatigue R53.83 [facility] [address] [place] [id number] [place] [address] 67379- 7785 Sep, Fatigue R53.83 [facility] [address] [place] [id number] [place] [address] 08054- 3407 Sep, [facility] [address] [place] [id number] [place] [address] 75605- 4317 Aug, [facility] [address] [place] [id number] [place] [address] 06308- 9327 Aug, [place] [address] [place] [address] 08500- 9084 Aug, 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 [place] [address] [place] [id number] [place] [address] 01679- 2084 Aug, Panic disorder without agoraphobia F41.0 ; 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 and Dysthymic disorder F34.1 [place] [address] [place] [id number] [place] [address] 42573- 3350 Aug, Shortness of breath R06.02 ; Panic attacks F41.0 ; COPD ( chronic obstructive pulmonary disease) J44.9 ; Tobacco abuse Z72.0 ; Family history of diabetes mellitus Z83.3 and Weight gain R63.5 [place] [address] [place] [id number] [place] [address] 12511- 5167 Aug, [place] [address] 79760- 7801 Jul, [place] [address] 26189- 6311 Jun, Onychomycosis B35.1 ; Neuropathy G62.9 and Impaired circulation I99.9 [place] [id number] [place] [address] 16236- 1833 09 Mar, 2015 Fissure in skin of foot R23.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 [place] [address] [place] [id number] [place] [address] 14172- 9552 18 Feb, 2015 Family history of coronary arteriosclerosis V17.[address] 31195- 2174 15 Feb, 2015 Allergic rhinitis due to pollen 477.0 ; Unspecified breast screening V76.10 ; Anxiety 300.00 and Family history of coronary arteriosclerosis V17.3 [place] [address] [place] [address]- 7135 Jan, [facility] [address] [facility] [id number], [place] [address]- 2119 Dec, [facility] [address] [id number], [place] [address]- 0732 Dec, Onychomycosis 110.1 and Skin fissures 709.8 [facility] [address] [facility] [id number], [place] [address]- 3126 Sep, [facility] [address] [facility] [id number] [place] [address]- 4990 Sep, [facility] [address] [facility] [id number], [place] [address]- 3625 Aug, [facility] [address], [place] [address]- 7764 Aug, [facility] [address] [place] [id number], [place] [address]- 0600 Jul, [facility] [address] [place] [id number] [address]- 4889 Jul, [facility] [address] [place] [id number], [place] [address]- 4708 Jun, [facility] [address] [place] [id number], [place] [address]- 7726 Jun, [facility] [address] [facility] [id number], [place] [address]- 3538 Jun, [facility] [place] [facility] [address] [facility] [id number] [place] [address]- 0998 Jun, [facility] [address] [facility] [id number], [place] [address]- 4379 Jun, [facility] [place] [facility] [address] [facility] [id number] [place] 6188 May, [facility] [address] [facility] [id number] [place] [address]- 9265 May, [facility] [place] [facility] [address] [id number] [place] [address]- 3816 May, [facility] [place] [facility] [address] [id number] [place] [address]- 3037 May, [facility] [place] [facility] [address] [id number] [place] [address]- 1643 May, [facility] [place] [facility] [address] [id number] [place] [address]- 7630 May, [facility] [place] [facility] [address] [id number] [place] [address]- 6005 May, [facility] [place] [facility] [address] [id number] [place] [address]- 8697 May, [facility] [place] [facility] [address] [id number] [place] [address]- 0783 Apr, [facility] [place] [facility] [address] [id number] [place] [address]- 9855 Apr, [facility] [place] [facility] [address] [id number] [place] [address]- 2536 Apr, [facility] [place] [facility] [address] [facility] [id number] [place] [address]- 1074 Apr, [facility] [place] [facility] [address] [id number] [place] [address]- 7739 Apr, [facility] [place] [facility] [address] [id number] [place] [address]- 6771 Apr, [facility] [place] [facility] [address] [id number] [place] [address]- 4139 Apr, [facility] [place] [facility] [address] [id number] [place] [address]- 0992 Apr, [facility] [place] [facility] [address] [id number] [place] [address]- 8365 Apr, [facility] [place] [facility] [address] [id number] [place] [address]- 4011 Apr, [facility] [place] [facility] [address] [id number] [place] [address]- 7195 Mar, [facility] [place] [facility] [address] [id number] [place] [address]- 5269 Mar, [facility] [place] [facility] [address] [id number] [place] [address]- 0920 Mar, [facility] [place] [facility] [address] [id number] [place] [address]- 3828 Mar, [facility] [place] [facility] [address] [id number] [place] [address]- 3437 Mar, [facility] [place] [facility] [address] [id number] [place] [address]- 5565 Mar, [facility] [place] [facility] [address] [id number] [place] [address]- 0285 Mar, [facility] [place] [facility] [address] [id number] [place] [address]- 3833 Mar, [facility] [place] [facility] [address] [id number] [place] [address]- 5977 Mar, [facility] [place] [facility] [address] [id number] [place] [address]- 9599 Mar, [facility] [place] [facility] [address] [id number] [place] [address]- 8299 Mar, [facility] [place] [facility] [address] [id number] [place] [address]- 0473 Mar, [facility] [place] [facility] [address] [id number] [place] [address]- 7747 Mar, [facility] [place] [facility] [address] [id number] [place] [address]- 4797 Mar, [facility] [place] [facility] [address] [id number] [place] [address]- 4088 Mar, [facility] [place] [facility] [address] [id number] [place] [address]- 3922 20 Mar, 2014 [facility] [place] [facility] [address] [id number] [place] [address]- 7286 20 Mar, 2014 [facility] [place] [facility] [address] [id number] [place] [address]- 6720 16 Mar, 2014 [facility] [place] [facility] [address] [id number] [place] [address]- 6463 16 Mar, 2013 [facility] [place] [facility] [address] [id number] [place] [address]- 1920 15 Mar, 2014 [facility] [place] [facility] [address] [id number] [place] [address]- 3555 14 Mar, 2014 [facility] [place] [facility] [address] [id number] [place] [address]- 0942 14 Mar, 2014 [facility] [place] [facility] [address] [id number] [place] [address]- 9479 14 Mar, 2013 [facility] [place] [facility] [address] [id number] [place] [address]- 2046 14 Mar, 2014 [facility] [place] [facility] [address] [id number] [place] [address]- 9918 09 Mar, 2013 [facility] [place] [facility] [address] [id number], [place] [address]- 3723 09 Mar, 2013 [facility] [place] [facility] [address] [id number], [place] [address] 09 Mar, 2013 [facility] [place] [facility] [address] [id number] [place] [address] Mar, [facility] [place] [facility] [address] [id number], [place] [address] 30 Feb, 2014 [facility] [place] [facility] [address] [id number] [place] [address] 30 Feb, 2014 [facility] [place] [facility] [address] [id number] [place] [address] 30 Feb, 2013 [facility] [place] [facility] [address] [id number] [place] [address] 30 Feb, 2013 [facility] [place] [facility] [address] [id number] [place] [address] Feb, 2013 [facility] [place] [facility] [address] [id number] [place] [address] Feb, 2013 [facility] [place] [facility] [address] [id number] [place] [address] Feb, 2013 [facility] [place] [facility] [address] [id number] [place] [address] Feb, 2013 [facility] [place] [facility] [address] [id number] [place] [address] Feb, 2013 [facility] [place] [facility] [address] [id number] [place] [address] Feb, 2013 [facility] [place] [facility] [address] [id number] [place] [address] Feb, 2013 [facility] [place] [facility] [address] [id number] [place] [address] Feb, 2013 [facility] [place] [facility] [address] [id number] [place] [address] Jan, [facility] [place] [facility] [address] [id number] [place] [address] Jan, [facility] [place] [facility] [address] [id number] [place] [address] Jan, [facility] [place] [facility] [address] [id number] [place] [address] Jan, [facility] [place] [facility] [address] [id number] [place] [address] Jan, [facility] [place] [facility] [address] [id number] [place] [address] Jan, [facility] [place] [facility] [address] [id number] [place] [address] Jan, [facility] [place] [facility] [address] [id number] [place] [address] Jan, [facility] [place] [facility] [address] [id number] [place] [address] Jan, [facility] [place] [facility] [address] [id number] [place] [address] Jan, [facility] [place] [facility] [address] [id number] [place] [address] Jan, [facility] [place] [facility] [address] [id number] [place] [address] Jan, [facility] [place] [facility] [address] [id number] [place] [address] Jan, [facility] [place] [facility] [address] [id number] [place] [address] Dec, [facility] [place] [facility] [address] [id number] [place] [address] Dec, [facility] [place] [facility] [address] [id number] [place] [address] Dec, [facility] [place] [facility] [address] [id number] [place] [address] 0962 Dec, [facility] [place] [facility] [address] [id number] [place] [address]- 8294 Dec, [facility] [place] [facility] [address] [id number] [place] [address] 4861 Dec, [facility] [place] [facility] [address] [id number] [place] [address]- 6083 Dec, [facility] [place] [facility] [address] [id number] [place] [address] 9172 Dec, [facility] [place] [facility] [address] [id number] [place] [address] 3909 Dec, 2013 [facility] [place] [facility] [address] [id number] [place] [address]- 6021 Dec, 2013 [facility] [place] [facility] [address] [id number] [place] [address]- 3157 Dec, 2013 [facility] [place] [facility] [address] [id number] [place] [address]- 1687 Dec, 2013 [facility] [place] [facility] [address] [id number] [place] [address]- 5420 Dec, 2013 [facility] [place] [facility] [address] [id number] [place] [address]- 6274 Dec, 2013 [facility] [place] [facility] [address] [id number] [place] [address]- 0679 Dec, 2013 [facility] [place] [facility] [address] [id number] [place] [address]- 9686 Dec, [facility] [place] [facility] [address] [id number] [place] [address]- 8381 Dec, [facility] [place] [facility] [address] [id number] [place] [address]- 6621 Dec, [facility] [place] [facility] [address] [id number] [place] [address]- 4983 Nov, [facility] [place] [facility] [address] [id number] [place] [address]- 6600 Nov, [facility] [place] [facility] [address] [id number] [place] [address]- 9836 Nov, [facility] [place] [facility] [address] [id number] [place] [address]- 2352 Nov, [facility] [place] [facility] [address] [id number] [place] [address]- 1637 Nov, [facility] [place] [facility] [address] [id number] [place] [address]- 0358 Nov, [facility] [place] [facility] [address] [id number] [place] [address]- 1684 Nov, [facility] [place] [facility] [address] [id number] [place] [address]- 8436 Nov, [facility] [place] [facility] [address] [id number] [place] [address]- 8452 Nov, [facility] [place] [facility] [address] [id number] [place] [address]- 9510 Nov, [facility] [place] [facility] [address] [id number] [place] [address]- 6346 Nov, [facility] [place] [facility] [address] [id number] [place] [address]- 9386 Nov, [facility] [place] [facility] [address] [id number] [place] [address]- 2445 Nov, [facility] [place] [facility] [address] [id number] [place] [address]- 7421 Nov, [facility] [place] [facility] [address] [id number] [place] [address]- 6641 Nov, [facility] [place] [facility] [address] [id number] [place] [address]- 7796 Nov, [facility] [place] [facility] [address] [id number] [place] [address]- 5304 Nov, [facility] [place] [facility] [address] [id number] [place] [address]- 9979 Nov, [facility] [place] [facility] [address] [id number] [place] [address]- 4108 Nov, [facility] [place] [facility] [address] [id number] [place] [address]- 9172 Nov, [facility] [place] [facility] [address] [id number] [place] [address]- 8463 October, [facility] [place] [facility] [address] [id number] [place] [address]- 5793 October, [facility] [place] [facility] [address] [id number] [place] [address]- 1636 October, [facility] [place] [facility] [address] [id number] [place] [address]- 4468 October, [facility] [place] [facility] [address] [id number] [place] [address]- 3319 Sep, [facility] [place] [facility] [address] [id number] [place] [address]- 3312 Sep, [facility] [place] [facility] [address] [id number] [place] [address]- 8020 Sep, [facility] [place] [facility] [address] [id number] [place] [address]- 5573 Sep, [facility] [place] [facility] [address] [id number] [place] [address]- 9357 Sep, [facility] [place] [facility] [address] [id number] [place] [address]- 3305 Sep, [facility] [place] [facility] [address] [id number] [place] [address]- 9118 Sep, [facility] [place] [facility] [address] [id number] [place] [address]- 4434 Sep, [facility] [place] [facility] [address] [id number] [place] [address]- 7032 Sep, [facility] [place] [facility] [address] [id number] [place] [address]- 5120 Aug, [facility] [place] [facility] [address] [id number] [place] [address]- 1420 Aug, [facility] [place] [facility] [address] [id number] [place] [address]- 5431 Aug, [facility] [place] [facility] [address] [id number] [place] [address]- 2003 Aug, [facility] [place] [facility] [address] [id number] [place] [address]- 0723 07 Aug, 2013 [facility] [place] [facility] [address] [id number] [place] [address]- 6036 Aug, [facility] [place] [facility] [address] [id number] [place] [address]- 1316 Aug, [facility] [place] [facility] [address] [id number] [place] [address]- 0518 Aug, [facility] [place] [facility] [address] [id number] [place] [address]- 2321 Jul, [facility] [place] [facility] [address] [id number] [place] [address]- 6385 Jul, [facility] [place] [facility] [address] [id number] [place] [address]- 4589 Jun, [facility] [place] [facility] [address] [id number] [place] [address]- 0689 Jun, [facility] [place] [facility] [address] [id number] [place] [address]- 4981 Jun, [facility] [place] [facility] [address] [id number] [place] [address]- 7219 Jun, [facility] [place] [facility] [address] [id number] [place] [address]- 0692 Jun, [facility] [place] [facility] [address] [id number] [place] [address]- 0923 Jun, [facility] [place] [facility] [address] [id number] [place] [address]- 8816 Jun, [facility] [place] [facility] [address] [id number] [place] [address]- 8745 15 Jun, 2013 [facility] [place] [facility] [address] [id number] [place] [address]- 9702 15 Jun, 2013 [facility] [place] [facility] [address] [id number] [place] [address]- 1870 14 Jun, 2013 [facility] [place] [facility] [address] [id number] [place] [address]- 2244 Jun, [facility] [address] [id number] [place] [address]- 6449 Jun, [facility] [address] [id number] [place] [address]- 5001 May, [facility] [address] [id number] [place] [address]- 3696 May, [facility] [address] [id number] [place] [address]33 May, [facility] [address] [id number] [place] [address]- 2222 May, [facility] [address] [id number] [place] [address]- 1683 May, [facility] [address] [id number] [place] [address]- 9314 May, [facility] [address] [id number] [place] [address]- 4222 May, [facility] [address] [id number] [place] [address]- 6216 May, [facility] [address] [id number] [place] [address]- 0033 May, [facility] [address] [id number] [place] [address]- 7957 16 May, 2013 [facility] [place] [facility] [address] [id number] [place] [address]- 3443 16 May, 2013 [facility] [place] [facility] [address] [id number] [place] [address]- 6346 16 May, 2013 [facility] [place] [facility] [address] [id number] [place] [address]- 3988 16 May, 2013 [facility] [place] [facility] [address] [id number] [place] [address]- 8742 Apr, [facility] [place] [facility] [address] [id number] [place] [address]- 7678 Apr, [facility] [place] [facility] [address] [id number] [place] [address] Mar, [facility] [place] [facility] [address] [id number] [place] [address]- 2415 Mar, [facility] [place] [facility] [address] [id number] [place] [address]- 5330 Feb, [facility] [place] [facility] [address] [id number] [place] [address]- 8778 Feb, [facility] [place] [facility] [address] [id number] [place] [address]- 1261 Feb, [facility] [place] [facility] [address] [id number] [place] [address]- 6066 Feb, [facility] [place] [facility] [address] [id number] [place] [address]- 1326 Jan, [facility] [place] [facility] [address] [id number] [place] [address]- 4545 Jan, [facility] [place] [facility] [address] [id number] [place] [address]- 9910 Jan, [facility] [place] [facility] [address] [id number] [place] [address]- 5659 Jan, [facility] [place] [facility] [address] [id number] [place] [address]- 5548 Jan, [facility] [place] [facility] [address] [id number] [place] [address]- 5288 Jan, [facility] [place] [facility] [address] [id number] [place] [address]- 7207 Dec, [facility] [place] [facility] [address] [id number] [place] [address]- 2806 Dec, [facility] [place] [facility] [address] [id number] [place] [address]- 8607 Dec, [facility] [address] [id number] [place] [address]- 3933 Dec, [facility] [address] [id number] [place] [address]- 2546 Nov, [facility] [address] [id number] [place] [address]- 1926 October, [facility] [address] [id number] [place] [address]- 5861 October, [facility] [address] [id number] [place] [address]- 7006 October, [facility] [address] [id number] [place] [address]- 6492 Sep, [facility] [address] [id number] [place] [address]- 8444 Sep, [facility] [address] [id number] [place] [address]- 5031 Jun, [facility] [address] [id number] [place] [address]- 9831 Jun, [facility] [address] [id number] [place] [address]- 7900 Jun, [facility] [address] [id number] [place] [address]- 6724 Apr, [facility] [address] [id number] [place] [address]- 9434 Apr, [facility] [place] [facility] [address] [id number] [place] [address]- 4356 Apr, [facility] [address] [id number] [place] [address]- 8796 Apr, [facility] [address] [id number] [place] [address]- 3976 Mar, [facility] [place] [facility] [address] [id number] [place] [address]- 1471 Mar, [facility] [place] [facility] [address] [id number] [place] [address]- 7911 Mar, [facility] [place] [facility] [address] [id number] [place] [address]- 5584 Mar, [facility] [place] [facility] [address] [id number] [place] [address]- 6848 Feb, [facility] [place] [facility] [address] [id number] [place] [address]- 3221 Feb, [facility] [place] [facility] [address] [id number] [place] [address]- 9418 Feb, [facility] [place] [facility] [address] [id number] [place] [address]- 3481 Jan, [facility] [place] [facility] [address] [id number] [place] [address]- 5797 Jan, [facility] [place] [facility] [address] [id number] [place] [address]- 2730 Jan, [facility] [place] [facility] [address] [id number], [place] [address]- 1105 Jan, [facility] [place] [facility] [address] [id number] [place] [address]- 5776 Dec, [facility] [place] [facility] [address] [id number], [place] [address]- 1761 Dec, [facility] [place] [facility] [address] [id number] [place] [address]- 9492 Nov, [facility] [place] [facility] [address] [id number] [place] [address]- 8376 Nov, [facility] [place] [facility] [address] [id number] [place] [address]- 3208 October, [facility] [place] [facility] [address] [id number], [place] [address]- 7998 October, [facility] [address] [id number] [place] [address]- 1551 October, [facility] [place] [facility] [address] [id number] [place] [address]- 2090 Sep, [facility] [place] [facility] [address] [facility] [id number] [place] [address]- 7296 Sep, [facility] [place] [facility] [address] [facility] [id number] [place] [address]- 8381 Sep, [facility] [address] [id number] [place] [address]- 4935 27 Aug, 2011 [facility] [place] [facility] [address] [facility] [id number] [place] [address]- 2727 26 Aug, 2011 [facility] [id number] [place] [address]- 3831 Aug, [facility] [place] [facility] [address] [facility] [id number] [place] [address]- 5943 15 Aug, 2011 [facility] [address] [id number] [place] [address]- 1801 Aug, [facility] [address] [id number] [place] [address]- 9166 23 Jul, 2011 [facility] [place] [facility] [id number] [place] [address]- 1709 16 Jul, 2011 [facility] [place] [facility] [address] [facility] [id number] [place] [address]- 4775 13 Jul, 2011 [facility] [place] [facility] [address] [id number] [place] [address]- 4075 09 Jul, 2011 [facility] [place] [facility] [address] [facility] [id number] [place] [address]- 2256 07 Jul, 2011 [facility] [place] [facility] [address] [id number] [place] [address]- 5738 Jul, [facility] [place] [facility] [address] [id number] [place] [address]- 5393 Jul, [facility] [place] [facility] [address] [id number] [place] [address]- 5543 Jul, [facility] [place] [facility] [address] [id number] [place] [address]- 3975 Jun, [facility] [place] [facility] [address] [id number] [place] [address]- 0823 Jun, [facility] [place] [facility] [address] [id number] [place] [address]- 8690 May, [facility] [place] [facility] [address] [id number] [place] [address]- 5514 May, [facility] [place] [facility] [address] [id number] [place] [address]- 2200 May, [facility] [place] [facility] [address] [id number], [place] [address]- 6258 May, [facility] [place] [facility] [address] [id number] [place] [address]- 5154 Apr, [facility] [place] [facility] [address] [id number], [place] [address]- 9356 Apr, [facility] [place] [facility] [address] [id number], [place] [address]- 4791 Apr, [facility] [place] [facility] [address] [id number], [place] [address]- 3893 Mar, [facility] [place] [facility] [address] [id number], [place] [address]- 6580 Mar, [facility] [place] [facility] [address] [id number], [place] [address]- 4270 Mar, [facility] [place] [facility] [address] [facility] [id number], [place] [address]- 6789 Mar, [facility] [place] [facility] [address] [id number], [place] [address]- 7247 Dec, [facility] [id number], [place] [address]- 9152 October, [facility] [id number], [place] [address]- 9009 May, [facility] [id number] [place] [address] 431171- 6485 May, [facility] [id number] [place] [address] 974700- 7440 May, [facility] [id number] [place] [address] 25655- 2133 May, [facility] [id number] [place] [address] 449098- 2458 Mar, [facility] [id number] [place] [address] 59181- 2354 Mar, [facility] [id number], [place] [address]- 6348 May, [facility] [id number] [place] [address] 54398- 3785 May, [facility] [id number], [place] [address]- 0529 May, [facility] [id number], [place] [address]- 7515 May, [facility] [id number], [place] [address]- 4643 Apr, [facility] [id number], [place] [address]- 3495 Apr, [facility] [id number] 3310 October, IMMUNIZATIONS No Known Immunizations SOCIAL HISTORY Never Assessed REASON FOR VISIT Refill request PLAN OF CARE VITAL SIGNS MEDICATIONS Medication Instructions Dosage Frequency Start Date End Date Duration Status Ropinirole HCl 0.5 MG Orally Once a day 1 tablet 1 to 3 hours before bedtime 24h 30 days Active RESULTS No Results PROCEDURES [...]
--- OUTSIDE RECORDS SUMMARY | 2018-03-17 11:11 | XMS REPORT ---
Author Author THOMAS JENNINGS Organization [facility] Address [address] [place] [address] Care Team Providers Care Pension Manager Name Role Phone THOMAS JENNINGS Unavailable PROBLEMS Type Condition ICD9-CM Code [id number] Code Onset Dates Condition Status SNOMED Code Problem Other chronic pain G89.29 Active 50395329 Problem On home oxygen therapy Z99.81 Active 267599937754 Problem Mild chronic obstructive pulmonary disease J44.9 Active 644403820 Problem COPD (chronic obstructive pulmonary disease) with chronic bronchitis J44.9 Active 691093663 Problem History of illicit drug use Z87.898 Active 602129914 Problem COPD exacerbation J44.1 Active 676749172 Problem Neuropathy G62.9 Active 387605177 Problem Essential hypertension I10 Active 93490890 Problem 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 Active 94421662 Problem Major depressive disorder, recurrent episode, moderate F33.1 Active 263545454 Problem Impaired circulation I99.9 Active 16881198 Problem 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 Active 76843428 Problem Snoring R06.83 Active 17644059 Problem MRSA (methicillin resistant staph aureus) culture positive Z22.322 Active 459705411 Problem Fatigue R53.83 Active 87732869 Problem Varicose veins of both lower extremities I83.93 Active 22295182 Problem Dysthymic disorder F34.1 Active 53097717 Problem Upper respiratory tract infection, unspecified type J06.9 Active 24669011 Problem Panic disorder without agoraphobia F41.0 Active 34489932 Problem Mild persistent asthma without complication J45.30 Active 779569798 ALLERGIES No Information ENCOUNTERS Encounter Location Date Diagnosis [facility] [address] [facility] [id number] [address] Feb, [facility] [address] [facility] [id number] [place] [address] Feb, [place] [address] [place] [id number] [place] [address]70- 2558 Feb, Dysthymic disorder F34.1 [place] [address] [address]- [address] Feb, [place] [address] [address]- 6[address] Jan, [place] [address] [address]- 5[address] Jan, Abrasion of right elbow, initial encounter S50.311A ; Abrasion, right knee, initial encounter S80.211A and Sprain of other ligament of right ankle, initial encounter S93.491A [place] [address] [address]- 58[address] Jan, [facility] [address] [address] Jan, Injury of left ankle, initial encounter S99.912A ; Fall down stairs, initial encounter W10.8XXA and BMI 45.0-49.9, adult Z68.42 [place] [address] [address]- 5694 Jan, COPD exacerbation J44.1 [place] [address] 295[address]- 5402 Jan, Dysfunction of both eustachian 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 [place] [address] 6[address]- 3415 Jan, Bronchitis J40 and Acute suppurative otitis media of left ear without spontaneous rupture of tympanic membrane, recurrence not specified H66.002 [place] [address] [place] [id number] [place] [address] 90550- 9969 Jan, [place] [address] 36444- 0083 Jan, Bronchitis J40 and BMI 40.0-44.9, adult Z68.41 [place] [address] [place] [id number] [place] [address] 69612- 3572 Jan, [place] [address] 02799- 6668 Dec, Gastric pain R10.9 [place] [address] 99338- 1524 Dec, [place] [address] 00716- 4371 Dec, History of illicit drug use Z87.898 ; Neuropathy G62.9 ; COPD (chronic obstructive pulmonary disease) with chronic bronchitis J44.9 and Acute pain of right knee M25.[address] [address]- [address] Nov, [address] [address]- 5799 Nov, Onychomycosis B35.1 and Contusion of left foot, subsequent encounter S90.32XD [address] [address]- 7217 Nov, COPD exacerbation J44.1 [place] [address] 32[address]- 0865 Sep, [address] [address]- 9713 Sep, Dysthymic disorder F34.1 ; Tobacco abuse Z72.0 ; Pain in right knee M25.561 ; Pain in left knee M25.562 ; Other chronic pain G89.29 and BMI 40.0-44.9, adult Z68.41 [place] [address] [place] [id number] [place] [address] 20762- 4740 Aug, Major depressive disorder, recurrent episode, moderate F33.1 and 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 [place] [address]- 68[address] 14 Aug, 2017 Dysthymic disorder F34.1 ; Non-pressure chronic ulcer of left thigh, unspecified ulcer stage L97.129 ; Tobacco abuse Z72.0 ; Mild chronic obstructive pulmonary disease J44.9 and Forgetfulness R68.89 [place] [address] [place] [id number] [place] [address] 37855- 4540 09 Aug, 2017 Onychomycosis B35.1 ; Fissure in skin of foot R23.4 and Foot callus L84 [facility] [place] [id number] [place] [address] 46162 -5472 Jul, Right medial knee pain M25.561 ; Upper respiratory tract infection, unspecified type J06.9 and BMI 40.0-44.9, adult Z68.41 [facility] [address] [address] Jul, Nausea and vomiting, intractability of vomiting not specified, unspecified vomiting type R11.2 ; Left ear pain H92.02 and Gastric pain R10.9 [place] [address] 26826- 8627 Apr, Encounter for immunization Z23 [place] [address] [place] [id number] [place] [address] 16250- 4756 Apr, Onychomycosis B35.1 ; Xerosis of skin L85.3 ; Neuropathy G62.9 and 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 [place] [address] [place] [id number] [place] [address] 35292- 7242 Jan, Onychomycosis B35.1 and Neuropathy G62.9 [place] [address] 58568- 0395 Dec, [place] [address] 04498- 3326 Dec, [place] [address] 59154- 8500 Nov, [facility] [address] [address] 64[address] Aug, [facility] [address]65100[place] [address] 2[address] Aug, [facility] [address]65100[place] [address] 8439 Jul, [facility] [id number] [place] [address] 97823- 3465 Jul, [facility] [id number] [place] [address] 00339- 3627 Jul, Decubitus ulcer of left thigh, stage 2 L89.892 [facility] [address]65100[place] [address]- 7163 Jul, Decubitus ulcer of left thigh, stage 2 L89.892 [facility] [address]65100[place] [address]- 7192 17 Jul, 2016 [facility] [id number] [place] [address] 07141- 4049 15 Jul, 2016 Decubitus ulcer of left thigh, stage 2 L89.892 [facility] [address]65[address] [address]- 46[address] 14 Jul, 2016 [facility] [address] [address]- 2454 13 Jul, 2016 Cellulitis of other specified site L03.818 ; Illicit drug use F19.90 and Decubitus ulcer of left thigh, stage 2 L89.892 [facility] [address] [address]- 6830 08 Jul, 2016 [facility] [address] [address]- 2837 06 Jul, 2016 Cellulitis of right breast N61.0 [facility] [address] [place] [id number] [place] [address] 71449- 5296 Jun, [facility] [address] [place] [id number] [place] [address] 44928- 4738 Jun, [facility] [address] [place] [id number] [place] [address] 03771- 8473 Jun, Wheezing R06.2 and Arthralgia, unspecified joint M25.50 [facility] [address] 76846- 4500 May, [facility] [address] [place] [id number] [place] [address] 43785- 2259 May, [place] [address] [place] [id number] [place] [address] 41422- 9190 May, [place] [address] [place] [id number] [place] [address] 18085- 1774 May, Shortness of breath R06.02 [facility] [address] [place] [id number] [place] [address] 87294- 5773 May, Onychomycosis B35.1 and Fissure in skin of foot R23.4 [place] [address] [place] [id number] [place] [address] 31516- 7922 Apr, [facility] [address] [place] [id number] [place] [address] 09908 -3729 Apr, Dizziness R42 [place] [address] [place] [id number] [place] [address] 12374- 9952 14 Apr, 2016 Shortness of breath R06.02 ; Essential hypertension I10 ; Dizziness R42 and On home oxygen therapy Z99.81 [place] [address] [place] [id number] [place] [address] 23623- 5765 Apr, [place] [address] [place] [id number] [address] 98859- 8958 08 Apr, 2016 [facility] [address] [place] [id number] [place] [address] 07763- 6879 Apr, [facility] [address] [place] [id number] [place] [address] 25166- 9954 Apr, [facility] [address] [place] [id number] [place] [address] 66068- 2444 Apr, [facility] [address] [place] [id number] [place] [address] 21178- 0291 Apr, [facility] [address] [place] [id number] [place] [address] 83318- 5677 Apr, [facility] [address] [place] [id number] [place] [address] 59270- 0664 Mar, Mild chronic obstructive pulmonary disease J44.9 [facility] [address] [place] [id number] [place] [address] 60907- 4421 Mar, [facility] [address] [place] [id number] [place] [address] 35547- 6262 Mar, Epigastric pain R10.13 ; Low back pain M54.5 ; Other chronic pain G89.29 and Breast cancer screening Z12.39 [facility] [address] [place] [id number] [place] [address] 56013- 7363 Mar, [facility] [address] [place] [id number] [place] [address] 90350- 4283 Mar, [facility] [address] [place] [id number] [place] [address] 22743- 6446 Feb, [facility] [address] [place] [address] 36540- 5377 Feb, [facility] [address] [place] [id number] [place] [address] 66851- 8898 Feb, 2016 Fissure in skin of foot R23.4 and Onychomycosis B35.1 [facility] [address] [address]- 9742 Jan, 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 [facility] [id number] [place] [address] 51009- 6402 Dec, 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 [facility] [address] [place] [id number] [place] [address] 53813- 0369 Dec, Mild persistent asthma without complication J45.30 ; Dysthymic disorder F34.1 and Upper respiratory tract infection, unspecified type J06.9 [facility] [address] [place] [id number] [place] [address] 33675- 4058 Nov, 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 [facility] [address] [place] [id number] [place] [address] 97282- 5251 October, 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 [place] [address] [place] [id number] [place] [address] 88288- 4377 Sep, Panic disorder without agoraphobia F41.0 ; 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 and Dysthymic disorder F34.1 [place] [address] [place] [id number] [place] [address] 13090- 7639 Sep, Panic attacks F41.0 [place] [address] [place] [id number] [place] [address] 07698- 5079 Sep, [facility] [address] [place] [id number] [place] [address] 20227- 5506 Sep, Panic disorder without agoraphobia F41.0 ; Varicose veins of both lower extremities I83.93 and Fatigue R53.83 [facility] [address] [place] [id number] [place] [address] 00355- 1561 Sep, Fatigue R53.83 [facility] [address] [place] [id number] [place] [address] 27554- 4288 Sep, [facility] [address] [place] [id number] [place] [address] 69015- 2277 Aug, [facility] [address] [place] [id number] [place] [address] 27068- 0501 Aug, [place] [address] [place] [address] 01081- 8747 Aug, 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 [place] [address] [place] [id number] [place] [address] 66594- 9340 Aug, Panic disorder without agoraphobia F41.0 ; 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 and Dysthymic disorder F34.1 [place] [address] [place] [id number] [place] [address] 54197- 9117 Aug, Shortness of breath R06.02 ; Panic attacks F41.0 ; COPD ( chronic obstructive pulmonary disease) J44.9 ; Tobacco abuse Z72.0 ; Family history of diabetes mellitus Z83.3 and Weight gain R63.5 [place] [address] [place] [id number] [place] [address] 63867- 6035 Aug, [place] [address] 42440- 8171 Jul, [place] [address] 87616- 9085 Jun, Onychomycosis B35.1 ; Neuropathy G62.9 and Impaired circulation I99.9 [place] [id number] [place] [address] 92173- 4567 09 Mar, 2015 Fissure in skin of foot R23.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 [place] [address] [place] [id number] [place] [address] 71069- 6824 18 Feb, 2015 Family history of coronary arteriosclerosis V17.[address] 62997- 8438 15 Feb, 2015 Allergic rhinitis due to pollen 477.0 ; Unspecified breast screening V76.10 ; Anxiety 300.00 and Family history of coronary arteriosclerosis V17.3 [place] [address] [place] [address]- 6075 Jan, [facility] [address] [facility] [id number] [place] [address]- 4008 Dec, [facility] [address] [place] [id number] [address]- 0586 Dec, Onychomycosis 110.1 and Skin fissures 709.8 [facility] [address] [facility] [id number] [place] [address]- 4388 Sep, [facility] [address] [facility] [id number] [place] [address]- 0749 Sep, [facility] [address] [facility] [id number] [place] [address]- 4317 Aug, [facility] [address] [address]- 6607 Aug, [facility] [address] [place] [id number] [address]- 4154 Jul, [facility] [address] [place] [id number] [place] [address]- 3663 Jul, [facility] [address] [place] [id number] [address]- 8475 Jun, [facility] [address] [place] [id number] [address]- 0543 Jun, [facility] [address] [facility] [id number] [place] [address]- 3937 Jun, [facility] [place] [facility] [address] [facility] [id number] [place] [address]- 7444 Jun, [facility] [address] [facility] [id number] [place] [address]- 4839 Jun, [facility] [place] [facility] [address] [facility] [id number] [place]- 8347 May, [facility] [address] [facility] [id number] [place] [address]- 1919 May, [facility] [place] [facility] [address] [id number] [place] [address]- 6475 May, [facility] [place] [facility] [address] [id number] [place] [address]- 2726 May, [facility] [place] [facility] [address] [id number] [place] [address]- 3361 May, [facility] [place] [facility] [address] [id number] [place] [address]- 9976 May, [facility] [place] [facility] [address] [id number] [place] [address]- 6469 May, [facility] [place] [facility] [address] [id number] [place] [address]- 8023 May, [facility] [place] [facility] [address] [id number] [place] [address]- 3044 Apr, [facility] [place] [facility] [address] [id number] [place] [address]- 6990 Apr, [facility] [place] [facility] [address] [id number] [place] [address]- 9695 Apr, [facility] [place] [facility] [address] [facility] [id number] [place] [address]- 1913 Apr, [facility] [place] [facility] [address] [id number] [place] [address]- 1255 Apr, [facility] [place] [facility] [address] [id number] [place] [address]- 1269 Apr, [facility] [place] [facility] [address] [id number] [place] [address]- 2923 Apr, [facility] [place] [facility] [address] [id number] [place] [address]- 7323 Apr, [facility] [place] [facility] [address] [id number] [place] [address]- 2584 Apr, [facility] [place] [facility] [address] [id number] [place] [address]- 4882 Apr, [facility] [place] [facility] [address] [id number] [place] [address]- 5095 Mar, [facility] [place] [facility] [address] [id number] [place] [address]- 8438 Mar, [facility] [place] [facility] [address] [id number] [place] [address]- 9347 Mar, [facility] [place] [facility] [address] [id number] [place] [address]- 0951 Mar, [facility] [place] [facility] [address] [id number] [place] [address]- 8138 Mar, [facility] [place] [facility] [address] [id number] [place] [address]- 3373 Mar, [facility] [place] [facility] [address] [id number] [place] [address]- 1003 Mar, [facility] [place] [facility] [address] [id number] [place] [address]- 2812 Mar, [facility] [place] [facility] [address] [id number] [place] [address]- 5928 Mar, [facility] [place] [facility] [address] [id number] [place] [address]- 8791 Mar, [facility] [place] [facility] [address] [id number] [place] [address]- 0417 Mar, [facility] [place] [facility] [address] [id number] [place] [address]- 8538 Mar, [facility] [place] [facility] [address] [id number] [place] [address]- 9876 Mar, [facility] [place] [facility] [address] [id number] [place] [address]- 0676 Mar, [facility] [place] [facility] [address] [id number] [place] [address]- 0774 Mar, [facility] [place] [facility] [address] [id number] [place] [address]- 7572 20 Mar, 2014 [facility] [place] [facility] [address] [id number] [place] [address]- 4213 20 Mar, 2014 [facility] [place] [facility] [address] [id number] [place] [address]- 6636 16 Mar, 2014 [facility] [place] [facility] [address] [id number] [place] [address]- 9068 16 Mar, 2013 [facility] [place] [facility] [address] [id number] [place] [address]- 9772 15 Mar, 2014 [facility] [place] [facility] [address] [id number] [place] [address]- 9448 14 Mar, 2014 [facility] [place] [facility] [address] [id number] [place] [address]- 6556 14 Mar, 2014 [facility] [place] [facility] [address] [id number] [place] [address]- 2380 14 Mar, 2013 [facility] [place] [facility] [address] [id number] [place] [address]- 4403 14 Mar, 2014 [facility] [place] [facility] [address] [id number] [place] [address]- 7698 09 Mar, 2013 [facility] [place] [facility] [address] [id number] [place] [address]- 2064 09 Mar, 2013 [facility] [place] [facility] [address] [id number] [place] [address]- 0684 09 Mar, 2013 [facility] [place] [facility] [address] [id number] [place] [address] Mar, [facility] [place] [facility] [address] [id number] [place] [address] 30 Feb, 2014 [facility] [place] [facility] [address] [id number] [place] [address] 30 Feb, 2014 [facility] [place] [facility] [address] [id number] [place] [address] 30 Feb, 2013 [facility] [place] [facility] [address] [id number] [place] [address] 2546 30 Feb, 2013 [facility] [place] [facility] [address] [id number] [place] [address] 2546 Feb, 2013 [facility] [place] [facility] [address] [id number] [place] [address] Feb, 2013 [facility] [place] [facility] [address] [id number] [place] [address] Feb, 2013 [facility] [place] [facility] [address] [id number] [place] [address] Feb, 2013 [facility] [place] [facility] [address] [id number] [place] [address] Feb, 2013 [facility] [place] [facility] [address] [id number] [place] [address]- [address] Feb, 2013 [facility] [place] [facility] [address] [id number] [place] [address]- [address] Feb, 2013 [facility] [place] [facility] [address] [id number] [place] [address] Feb, 2013 [facility] [place] [facility] [address] [id number] [place] [address] Jan, [facility] [place] [facility] [address] [id number] [place] [address] 254 Jan, [facility] [place] [facility] [address] [id number] [place] [address]- [address] Jan, [facility] [place] [facility] [address] [id number] [place] [address] Jan, [facility] [place] [facility] [address] [id number] [place] [address]- [address] Jan, [facility] [place] [facility] [address] [id number] [place] [address]- [address] Jan, [facility] [place] [facility] [address] [id number] [place] [address]- [address] Jan, [facility] [place] [facility] [address] [id number] [place] [address]99 Jan, [facility] [place] [facility] [address] [id number] [place] [address] Jan, [facility] [place] [facility] [address] [id number] [place] [address]- [address] Jan, [facility] [place] [facility] [address] [id number] [place] [address]- [address] Jan, [facility] [place] [facility] [address] [id number] [place] [address]- [address] Jan, [facility] [place] [facility] [address] [id number] [place] [address] Jan, [facility] [place] [facility] [address] [id number] [place] [address]- [address]99 Dec, [facility] [place] [facility] [address] [id number] [place] [address]- 6983 Dec, [facility] [place] [facility] [address] [id number] [place] [address] Dec, [facility] [place] [facility] [address] [id number] [place] [address] Dec, [facility] [place] [facility] [address] [id number] [place] [address] Dec, [facility] [place] [facility] [address] [id number] [place] [address] Dec, [facility] [place] [facility] [address] [id number] [place] [address]- [address] Dec, [facility] [place] [facility] [address] [id number] [place] [address]169 Dec, [facility] [place] [facility] [address] [id number] [place] [address] Dec, 2013 [facility] [place] [facility] [address] [id number] [place] [address]- [address] Dec, 2013 [facility] [place] [facility] [address] [id number] [place] [address]- [address] Dec, 2013 [facility] [place] [facility] [address] [id number] [place] [address]- [address] Dec, 2013 [facility] [place] [facility] [address] [id number] [place] [address]- [address] Dec, 2013 [facility] [place] [facility] [address] [id number] [place] [address] Dec, 2013 [facility] [place] [facility] [address] [id number] [place] [address] Dec, 2013 [facility] [place] [facility] [address] [id number] [place] [address] 2916 Dec, [facility] [place] [facility] [address] [id number] [place] [address]- 6032 Dec, [facility] [place] [facility] [address] [id number] [place] [address]- 7666 Dec, [facility] [place] [facility] [address] [id number] [place] [address]- 4319 Nov, [facility] [place] [facility] [address] [id number] [place] [address]- 7410 Nov, [facility] [place] [facility] [address] [id number] [place] [address]- 0627 Nov, [facility] [place] [facility] [address] [id number] [place] [address]- 6822 Nov, [facility] [place] [facility] [address] [id number] [place] [address]- 1351 Nov, [facility] [place] [facility] [address] [id number] [place] [address]- 2648 Nov, [facility] [place] [facility] [address] [id number] [place] [address]- 5494 Nov, [facility] [place] [facility] [address] [id number] [place] [address]- 9130 Nov, [facility] [place] [facility] [address] [id number] [place] [address]- 8734 Nov, [facility] [place] [facility] [address] [id number] [place] [address]- 3766 Nov, [facility] [place] [facility] [address] [id number] [place] [address]- 2649 Nov, [facility] [place] [facility] [address] [id number] [place] [address]- 1445 Nov, [facility] [place] [facility] [address] [id number] [place] [address]- 4593 Nov, [facility] [place] [facility] [address] [id number] [place] [address]- 2507 Nov, [facility] [place] [facility] [address] [id number] [place] [address]- 4214 Nov, [facility] [place] [facility] [address] [id number] [place] [address]- 0316 Nov, [facility] [place] [facility] [address] [id number] [place] [address]- 0445 Nov, [facility] [place] [facility] [address] [id number] [place] [address]- 6658 Nov, [facility] [place] [facility] [address] [id number] [place] [address]- 8138 Nov, [facility] [place] [facility] [address] [id number] [place] [address]- 8076 Nov, [facility] [place] [facility] [address] [id number] [place] [address]- 7549 October, [facility] [place] [facility] [address] [id number] [place] [address]- 7529 October, [facility] [place] [facility] [address] [id number] [place] [address]- 7865 October, [facility] [place] [facility] [address] [id number] [place] [address]- 6163 October, [facility] [place] [facility] [address] [id number] [place] [address]- 0145 Sep, [facility] [place] [facility] [address] [id number] [place] [address]- 4110 Sep, [facility] [place] [facility] [address] [id number] [place] [address]- 0547 Sep, [facility] [place] [facility] [address] [id number] [place] [address]- 1262 Sep, [facility] [place] [facility] [address] [id number] [place] [address]- 0876 Sep, [facility] [place] [facility] [address] [id number] [place] [address]- 4782 Sep, [facility] [place] [facility] [address] [id number] [place] [address]- 4999 Sep, [facility] [place] [facility] [address] [id number] [place] [address]- 2524 Sep, [facility] [place] [facility] [address] [id number] [place] [address]- 1117 Sep, [facility] [place] [facility] [address] [id number] [place] [address]- 7527 Aug, [facility] [place] [facility] [address] [id number] [place] [address]- 1268 Aug, [facility] [place] [facility] [address] [id number] [place] [address]- 1548 Aug, [facility] [place] [facility] [address] [id number] [place] [address]- 5559 Aug, [facility] [place] [facility] [address] [id number] [place] [address]- 9414 07 Aug, 2013 [facility] [place] [facility] [address] [id number] [place] [address]- 4309 Aug, [facility] [place] [facility] [address] [id number] [place] [address]- 9041 Aug, [facility] [place] [facility] [address] [id number] [place] [address]- 6383 Aug, [facility] [place] [facility] [address] [id number] [place] [address]- 6483 Jul, [facility] [place] [facility] [address] [id number] [place] [address]- 5162 Jul, [facility] [place] [facility] [address] [id number] [place] [address]- 3786 Jun, [facility] [place] [facility] [address] [id number] [place] [address]- 7407 Jun, [facility] [place] [facility] [address] [id number] [place] [address]- 4880 Jun, [facility] [place] [facility] [address] [id number] [place] [address]- 6588 Jun, [facility] [place] [facility] [address] [id number] [place] [address]- 9511 Jun, [facility] [place] [facility] [address] [id number] [place] [address]- 9147 Jun, [facility] [place] [facility] [address] [id number] [place] [address]- 3903 Jun, [facility] [place] [facility] [address] [id number] [place] [address]- 2315 15 Jun, 2013 [facility] [place] [facility] [address] [id number] [place] [address]- 0899 15 Jun, 2013 [facility] [place] [facility] [address] [id number] [place] [address]- 0460 14 Jun, 2013 [facility] [place] [facility] [address] [id number] [place] [address]- 5757 Jun, [facility] [address] [id number] [place] [address]- 4602 Jun, [facility] [address] [id number] [place] [address]- 6875 May, [facility] [address] [id number] [place] [address]- 9279 May, [facility] [address] [id number] [place] [address] May, [facility] [address] [id number] [place] [address]- 9924 May, [facility] [address] [id number] [place] [address]- 8251 May, [facility] [address] [id number] [place] [address]- 3927 May, [facility] [address] [id number] [place] [address]- 2201 May, [facility] [address] [id number] [place] [address]- 2003 May, [facility] [address] [id number] [place] [address]- 6947 May, [facility] [address] [id number] [place] [address]- 1771 16 May, 2013 [facility] [place] [facility] [address] [id number] [place] [address]- 5551 16 May, 2013 [facility] [place] [facility] [address] [id number] [place] [address]- 0651 16 May, 2013 [facility] [place] [facility] [address] [id number] [place] [address]- 1587 16 May, 2013 [facility] [place] [facility] [address] [id number] [place] [address]- 5091 Apr, [facility] [place] [facility] [address] [id number] [place] [address]- 9335 Apr, [facility] [place] [facility] [address] [id number] [place] [address] Mar, [facility] [place] [facility] [address] [id number] [place] [address]- 3865 Mar, [facility] [place] [facility] [address] [id number] [place] [address]- 4885 Feb, [facility] [place] [facility] [address] [id number] [place] [address]- 7916 Feb, [facility] [place] [facility] [address] [id number] [place] [address]- 9317 Feb, [facility] [place] [facility] [address] [id number] [place] [address]- 5914 Feb, [facility] [place] [facility] [address] [id number] [place] [address]- 7406 Jan, [facility] [place] [facility] [address] [id number] [place] [address]- 8307 Jan, [facility] [place] [facility] [address] [id number] [place] [address]- 8835 Jan, [facility] [place] [facility] [address] [id number] [place] [address]- 9776 Jan, [facility] [place] [facility] [address] [id number] [place] [address]- 3496 Jan, [facility] [place] [facility] [address] [id number] [place] [address]- 5110 Jan, [facility] [place] [facility] [address] [id number] [place] [address]- 0560 Dec, [facility] [place] [facility] [address] [id number] [place] [address]- 3559 Dec, [facility] [place] [facility] [address] [id number] [place] [address]- 8910 Dec, [facility] [address] [id number] [place] [address]- 6586 Dec, [facility] [address] [id number] [place] [address]- 2546 Nov, [facility] [address] [id number] [place] [address]- 6196 October, [facility] [address] [id number] [place] [address]- 8589 October, [facility] [address] [id number] [place] [address]- 3646 October, [facility] [address] [id number] [place] [address]- 0790 Sep, [facility] [address] [id number] [place] [address]- 9458 Sep, [facility] [address] [id number] [place] [address]- 6351 Jun, [facility] [address] [id number] [place] [address]- 3054 Jun, [facility] [address] [id number] [place] [address]- 7463 Jun, [facility] [address] [id number] [place] [address]- 9673 Apr, [facility] [address] [id number] [place] [address]- 8182 Apr, [facility] [place] [facility] [address] [id number] [place] [address]- 0916 Apr, [facility] [address] [id number] [place] [address]- 3666 Apr, [facility] [address] [id number] [place] [address]- 8211 Mar, [facility] [place] [facility] [address] [id number] [place] [address]- 6361 Mar, [facility] [place] [facility] [address] [id number] [place] [address]- 9125 Mar, [facility] [place] [facility] [address] [id number] [place] [address]- 4041 Mar, [facility] [place] [facility] [address] [id number] [place] [address]- 4929 Feb, [facility] [place] [facility] [address] [id number] [place] [address]- 3972 Feb, [facility] [place] [facility] [address] [id number] [place] [address]- 7971 Feb, [facility] [place] [facility] [address] [id number] [place] [address]- 9779 Jan, [facility] [place] [facility] [address] [id number] [place] [address]- 8156 Jan, [facility] [place] [facility] [address] [id number] [place] [address]- 9215 Jan, [facility] [place] [facility] [address] [id number] [place] [address]- 5628 Jan, [facility] [place] [facility] [address] [id number] [place] [address]- 7865 Dec, [facility] [place] [facility] [address] [id number] [place] [address]- 8394 Dec, [facility] [place] [facility] [address] [id number] [place] [address]- 6895 Nov, [facility] [place] [facility] [address] [id number] [place] [address]- 8148 Nov, [facility] [place] [facility] [address] [id number] [place] [address]- 5044 October, [facility] [place] [facility] [address] [id number] [place] [address]- 0368 October, [facility] [address] [id number] [place] [address]- 8001 October, [facility] [place] [facility] [address] [id number] [place] [address]- 0815 Sep, [facility] [place] [facility] [address] [facility] [id number] [place] [address]- 4496 Sep, [facility] [place] [facility] [address] [facility] [id number] [place] [address]- 9847 Sep, [facility] [address] [id number] [place] [address]- 1167 27 Aug, 2011 [facility] [place] [facility] [address] [facility] [id number] [place] [address]- 3424 26 Aug, 2011 [facility] [id number] [place] [address]- 3578 Aug, [facility] [place] [facility] [address] [facility] [id number] [place] [address]- 7806 15 Aug, 2011 [facility] [address] [id number] [place] [address]- 4444 Aug, [facility] [address] [id number] [place] [address]- 5800 23 Jul, 2011 [facility] [place] [facility] [id number] [place] [address]- 8060 16 Jul, 2011 [facility] [place] [facility] [address] [facility] [id number] [place] [address]- 9030 13 Jul, 2011 [facility] [place] [facility] [address] [id number] [place] [address]- 7340 09 Jul, 2011 [facility] [place] [facility] [address] [facility] [id number] [place] [address]- 8788 07 Jul, 2011 [facility] [place] [facility] [address] [id number] [place] [address]- 2450 Jul, [facility] [place] [facility] [address] [id number] [place] [address]- 2453 Jul, [facility] [place] [facility] [address] [id number] [place] [address]- 0969 Jul, [facility] [place] [facility] [address] [id number] [place] [address]- 8063 Jun, [facility] [place] [facility] [address] [id number] [place] [address]- 4036 Jun, [facility] [place] [facility] [address] [id number] [place] [address]- 1667 May, [facility] [place] [facility] [address] [id number] [place] [address]- 8070 May, [facility] [place] [facility] [address] [id number] [place] [address]- 2220 May, [facility] [place] [facility] [address] [id number] [place] [address]- 7359 May, [facility] [place] [facility] [address] [id number] [place] [address]- 4325 Apr, [facility] [place] [facility] [address] [id number] [place] [address]- 0518 Apr, [facility] [place] [facility] [address] [id number] [place] [address]- 6147 Apr, [facility] [place] [facility] [address] [id number] [place] [address]- 5885 Mar, [facility] [place] [facility] [address] [id number] [place] [address]- 1171 Mar, [facility] [place] [facility] [address] [id number] [place] [address]- 6863 Mar, [facility] [place] [facility] [address] [facility] [id number] [place] [address]- 5629 Mar, [facility] [place] [facility] [address] [id number] [place] [address]- 2456 Dec, [facility] [id number] [address]- 3294 October, [facility] [id number] [address]- 1052 May, [facility] [id number] [address]- 9456 May, [facility] [id number] [address]- 8649 May, [facility] [id number] [place] [address]- 2655 May, [facility] [id number] [place] [address]- 1994 Mar, [facility] [id number] [place] [address]- 5774 Mar, [facility] [id number] [address]- 6759 May, [facility] [id number] 5428 May, [facility] [id number] [address]- 8525 May, [facility] [id number] [address]- 1138 May, [facility] [address] [id number] [address]- 2814 Apr, [facility] [id number] [address]- 6179 Apr, [facility] [id number] [address]- 4536 October, IMMUNIZATIONS No Known Immunizations SOCIAL HISTORY Never Assessed REASON FOR VISIT Prior Authorization Request PLAN OF CARE VITAL SIGNS MEDICATIONS Medication Instructions Dosage Frequency Start Date End Date Duration Status Omeprazole 20 MG Orally Once a day 1 capsule 24h Jan, 30 day(s ) Active HydrOXYzine HCl 50 MG Orally 2 times a day 1 tablet 12h 30 days Active Ranitidine HCl 150 MG Orally [...]
--- OUTSIDE RECORDS SUMMARY | 2018-03-17 11:12 | XMS REPORT ---
Author Author THOMAS JENNINGS Organization [facility] Address [address] [place] [address] Care Team Providers Care Automation Analyst Name Role Phone THOMAS JENNINGS Unavailable PROBLEMS Type Condition ICD9-CM Code HOB66-SZ Code Onset Dates Condition Status SNOMED Code Problem Other chronic pain G89.29 Active 70153782 Problem On home oxygen therapy Z99.81 Active 813184396575 Problem Mild chronic obstructive pulmonary disease J44.9 Active 295312286 Problem COPD (chronic obstructive pulmonary disease) with chronic bronchitis J44.9 Active 197935045 Problem History of illicit drug use Z87.898 Active 090870045 Problem COPD exacerbation J44.1 Active 608789536 Problem Neuropathy G62.9 Active 149492445 Problem Essential hypertension I10 Active 61467492 Problem 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 Active 19440252 Problem Major depressive disorder, recurrent episode, moderate F33.1 Active 176990598 Problem Impaired circulation I99.9 Active 48644063 Problem 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 Active 60438032 Problem Snoring R06.83 Active 14629807 Problem MRSA (methicillin resistant staph aureus) culture positive Z22.322 Active 251429593 Problem Fatigue R53.83 Active 48170224 Problem Varicose veins of both lower extremities I83.93 Active 53631520 Problem Dysthymic disorder F34.1 Active 88408651 Problem Upper respiratory tract infection, unspecified type J06.9 Active 01519465 Problem Panic disorder without agoraphobia F41.0 Active 68142301 Problem Mild persistent asthma without complication J45.30 Active 056899441 ALLERGIES No Information ENCOUNTERS Encounter Location Date Diagnosis [facility] [address] [facility] [id number], [place] [address] Feb, [facility] [address] [facility] [id number], [place] [address] Feb, [place] [address] [place] [id number] [place] [address] 60629- 9537 Feb, Dysthymic disorder F34.1 [place] [address] [address]- [address] Feb, [place] [address] [address]- 9020 Jan, [place] [address] 02285- 9966 Jan, Abrasion of right elbow, initial encounter S50.311A ; Abrasion, right knee, initial encounter S80.211A and Sprain of other ligament of right ankle, initial encounter S93.491A [place] [address] 6[address]- 7562 Jan, [facility] [address] [address] Jan, Injury of left ankle, initial encounter S99.912A ; Fall down stairs, initial encounter W10.8XXA and BMI 45.0-49.9, adult Z68.42 [place] [address] 73548- 2136 Jan, COPD exacerbation J44.1 [place] [address] 43215- 7415 Jan, Dysfunction of both eustachian 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 [place] [address] 04832- 7770 Jan, Bronchitis J40 and Acute suppurative otitis media of left ear without spontaneous rupture of tympanic membrane, recurrence not specified H66.002 [place] [address] [place] [id number] [place] [address] 98082- 1402 Jan, [place] [address] 90982- 1701 Jan, Bronchitis J40 and BMI 40.0-44.9, adult Z68.41 [place] [address] [place] [id number] [place] [address] 30327- 8571 Jan, [place] [address] 17928- 0301 Dec, Gastric pain R10.9 [place] [address] 46154- 5210 Dec, [place] [address] 53538- 4278 Dec, History of illicit drug use Z87.898 ; Neuropathy G62.9 ; COPD (chronic obstructive pulmonary disease) with chronic bronchitis J44.9 and Acute pain of right knee M25.[address] [address]- 6691 Nov, [address] 83042- 9841 Nov, Onychomycosis B35.1 and Contusion of left foot, subsequent encounter S90.32XD [address] 14574- 9777 Nov, COPD exacerbation J44.1 [place] [address] 72941- 8227 Sep, [address] 99978- 3724 Sep, Dysthymic disorder F34.1 ; Tobacco abuse Z72.0 ; Pain in right knee M25.561 ; Pain in left knee M25.562 ; Other chronic pain G89.29 and BMI 40.0-44.9, adult Z68.41 [place] [address] [place] [id number] [place] [address] 24977- 4265 Aug, Major depressive disorder, recurrent episode, moderate F33.1 and 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 [place] [address]- 0242 14 Aug, 2017 Dysthymic disorder F34.1 ; Non-pressure chronic ulcer of left thigh, unspecified ulcer stage L97.129 ; Tobacco abuse Z72.0 ; Mild chronic obstructive pulmonary disease J44.9 and Forgetfulness R68.89 [place] [address] [place] [id number] [place] [address] 37400- 1929 09 Aug, 2017 Onychomycosis B35.1 ; Fissure in skin of foot R23.4 and Foot callus L84 [facility] [place] [id number] [place] [address] -9924 Jul, Right medial knee pain M25.561 ; Upper respiratory tract infection, unspecified type J06.9 and BMI 40.0-44.9, adult Z68.41 [facility] [address] [address] Jul, Nausea and vomiting, intractability of vomiting not specified, unspecified vomiting type R11.2 ; Left ear pain H92.02 and Gastric pain R10.9 [place] [address] 71645- 5451 Apr, Encounter for immunization Z23 [place] [address] [place] [id number] [place] [address] 33277- 9423 Apr, Onychomycosis B35.1 ; Xerosis of skin L85.3 ; Neuropathy G62.9 and 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 [place] [address] [place] [id number] [place] [address] 40977- 8962 Jan, Onychomycosis B35.1 and Neuropathy G62.9 [place] [address] 06815- 2731 Dec, [place] [address] 77828- 2178 Dec, [place] [address] 22451- 7484 Nov, [facility] [address], [place] [address] 9[address] Aug, [facility] [address]65[address], [place] [address] 9597 Aug, [facility] [address], [place] [address]- 9453 Jul, [facility] [id number] [place] [address] 65011- 2495 Jul, [facility] [id number] [place] [address] 72303- 0958 Jul, Decubitus ulcer of left thigh, stage 2 L89.892 [facility] [address], [place] [address]- 6866 Jul, Decubitus ulcer of left thigh, stage 2 L89.892 [facility] [address]65[address], [place] [address]- 4753 17 Jul, 2016 [facility] [id number] [place] [address] 39505- 1856 15 Jul, 2016 Decubitus ulcer of left thigh, stage 2 L89.892 [facility] [address], [place] [address]- 9123 14 Jul, 2016 [facility] [address], [place] [address]- 5414 13 Jul, 2016 Cellulitis of other specified site L03.818 ; Illicit drug use F19.90 and Decubitus ulcer of left thigh, stage 2 L89.892 [facility] [address], [place] [address]- 8146 08 Jul, 2016 [facility] [address], [place] [address]- 8443 06 Jul, 2016 Cellulitis of right breast N61.0 [facility] [address] [place] [id number] [place] [address] 00117- 8821 Jun, [facility] [address] [place] [id number] [place] [address] 94917- 6934 Jun, [facility] [address] [place] [id number] [place] [address] 44851- 2003 Jun, Wheezing R06.2 and Arthralgia, unspecified joint M25.50 [facility] [address] 94569- 8759 May, [facility] [address] [place] [id number] [place] [address] 41904- 6757 May, [place] [address] [place] [id number] [place] [address] 28802- 1383 May, [place] [address] [place] [id number] [place] [address] 70531- 9890 May, Shortness of breath R06.02 [facility] [address] [place] [id number] [place] [address] 06717- 5007 May, Onychomycosis B35.1 and Fissure in skin of foot R23.4 [place] [address] [place] [id number] [place] [address] 40900- 0317 Apr, [facility] [address] [place] [id number] [place] [address] 64014 -9742 Apr, Dizziness R42 [place] [address] [place] [id number] [place] [address] 53430- 6718 14 Apr, 2016 Shortness of breath R06.02 ; Essential hypertension I10 ; Dizziness R42 and On home oxygen therapy Z99.81 [place] [address] [place] [id number] [place] [address] 21343- 1784 Apr, [place] [address] [place] [id number] [place] [address] 75875- 9939 08 Apr, 2016 [facility] [address] [place] [id number] [place] [address] 94092- 4197 Apr, [facility] [address] [place] [id number] [place] [address] 42230- 6859 Apr, [facility] [address] [place] [id number] [place] [address] 93146- 5191 Apr, [facility] [address] [place] [id number] [place] [address] 76858- 5542 Apr, [facility] [address] [place] [id number] [place] [address] 74234- 0881 Apr, [facility] [address] [place] [id number] [place] [address] 36483- 3501 Mar, Mild chronic obstructive pulmonary disease J44.9 [facility] [address] [place] [id number] [place] [address] 10910- 0846 Mar, [facility] [address] [place] [id number] [place] [address] 08842- 6147 Mar, Epigastric pain R10.13 ; Low back pain M54.5 ; Other chronic pain G89.29 and Breast cancer screening Z12.39 [facility] [address] [place] [id number] [place] [address] 70835- 8042 Mar, [facility] [address] [place] [id number] [place] [address] 61671- 5645 Mar, [facility] [address] [place] [id number] [place] [address] 27050- 1507 Feb, [facility] [id number] [place] [address] 12154- 2362 Feb, [facility] [address] [place] [id number] [place] [address] 71635- 6137 Feb, 2016 Fissure in skin of foot R23.4 and Onychomycosis B35.1 [facility] [address], [place] [address]- 7634 Jan, 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 [facility] [id number] [place] [address] 59109- 9520 Dec, 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 [facility] [address] [place] [id number] [place] [address] 04731- 9607 Dec, Mild persistent asthma without complication J45.30 ; Dysthymic disorder F34.1 and Upper respiratory tract infection, unspecified type J06.9 [facility] [address] [place] [id number] [place] [address] 72564- 9918 Nov, 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 [facility] [address] [place] [id number] [place] [address] 03615- 7935 October, 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 [place] [address] [place] [id number] [place] [address] 99814- 9743 Sep, Panic disorder without agoraphobia F41.0 ; 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 and Dysthymic disorder F34.1 [place] [address] [place] [id number] [place] [address] 75408- 2541 Sep, Panic attacks F41.0 [place] [address] [place] [id number] [place] [address] 99770- 6486 Sep, [facility] [address] [place] [id number] [place] [address] 34049- 7768 Sep, Panic disorder without agoraphobia F41.0 ; Varicose veins of both lower extremities I83.93 and Fatigue R53.83 [facility] [address] [place] [id number] [place] [address] 52860- 3198 Sep, Fatigue R53.83 [facility] [address] [place] [id number] [place] [address] 28101- 3535 Sep, [facility] [address] [place] [id number] [place] [address] 50448- 5571 Aug, [facility] [address] [place] [id number] [place] [address] 41775- 0030 Aug, [place] [id number] [place] [address] 29663- 2280 Aug, 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 [place] [address] [place] [id number] [place] [address] 51652- 1285 Aug, Panic disorder without agoraphobia F41.0 ; 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 and Dysthymic disorder F34.1 [place] [address] [place] [id number] [place] [address] 80840- 9103 Aug, Shortness of breath R06.02 ; Panic attacks F41.0 ; COPD ( chronic obstructive pulmonary disease) J44.9 ; Tobacco abuse Z72.0 ; Family history of diabetes mellitus Z83.3 and Weight gain R63.5 [place] [address] [place] [id number] [place] [address] 74864- 6830 Aug, [place] [address] 99305- 5714 Jul, [place] [address] 16001- 6353 Jun, Onychomycosis B35.1 ; Neuropathy G62.9 and Impaired circulation I99.9 [place] [id number] [place] [address] 73623- 9528 09 Mar, 2015 Fissure in skin of foot R23.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 [place] [address] [place] [id number] [place] [address] 72921- 7310 18 Feb, 2015 Family history of coronary arteriosclerosis V17.[address] 57369- 0206 15 Feb, 2015 Allergic rhinitis due to pollen 477.0 ; Unspecified breast screening V76.10 ; Anxiety 300.00 and Family history of coronary arteriosclerosis V17.3 [place] [address] [place] [address]- 1986 Jan, [facility] [address] [facility] [id number], [place] [address]- 4665 Dec, [facility] [address] [id number], [place] [address]- 5246 Dec, Onychomycosis 110.1 and Skin fissures 709.8 [facility] [address] [facility] [id number], [place] [address]- 8774 Sep, [facility] [address] [facility] [id number] [place] [address]- 3114 Sep, [facility] [address] [facility] [id number], [place] [address]- 3401 Aug, [facility] [address], [place] [address]- 8593 Aug, [facility] [address] [place] [id number], [place] [address]- 0879 Jul, [facility] [address] [place] [id number] [address]- 9989 Jul, [facility] [address] [id number], [place] [address]- 0348 Jun, [facility] [address] [place] [id number], [place] [address]- 8170 Jun, [facility] [address] [facility] [id number], [place] [address]- 3280 Jun, [facility] [place] [facility] [address] [facility] [id number] [place] [address]- 4415 Jun, [facility] [address] [facility] [id number], [place] [address]- 8170 Jun, [facility] [place] [facility] [address] [facility] [id number] [place] 7753 May, [facility] [address] [facility] [id number] [place] [address]- 7817 May, [facility] [place] [facility] [address] [id number] [place] [address]- 1480 May, [facility] [place] [facility] [address] [id number] [place] [address]- 7042 May, [facility] [place] [facility] [address] [id number] [place] [address]- 5836 May, [facility] [place] [facility] [address] [id number] [place] [address]- 6340 May, [facility] [place] [facility] [address] [id number] [place] [address]- 3293 May, [facility] [place] [facility] [address] [id number] [place] [address]- 1537 May, [facility] [place] [facility] [address] [id number] [place] [address]- 0659 Apr, [facility] [place] [facility] [address] [id number] [place] [address]- 8634 Apr, [facility] [place] [facility] [address] [id number] [place] [address]- 6060 Apr, [facility] [place] [facility] [address] [facility] [id number] [place] [address]- 7962 Apr, [facility] [place] [facility] [address] [id number] [place] [address]- 2114 Apr, [facility] [place] [facility] [address] [id number] [place] [address]- 5632 Apr, [facility] [place] [facility] [address] [id number] [place] [address]- 1697 Apr, [facility] [place] [facility] [address] [id number] [place] [address]- 7292 Apr, [facility] [place] [facility] [address] [id number] [place] [address]- 3827 Apr, [facility] [place] [facility] [address] [id number] [place] [address]- 6285 Apr, [facility] [place] [facility] [address] [id number] [place] [address]- 8171 Mar, [facility] [place] [facility] [address] [id number] [place] [address]- 7090 Mar, [facility] [place] [facility] [address] [id number] [place] [address]- 1105 Mar, [facility] [place] [facility] [address] [id number] [place] [address]- 4088 Mar, [facility] [place] [facility] [address] [id number] [place] [address]- 0563 Mar, [facility] [place] [facility] [address] [id number] [place] [address]- 9759 Mar, [facility] [place] [facility] [address] [id number] [place] [address]- 7418 Mar, [facility] [place] [facility] [address] [id number] [place] [address]- 7322 Mar, [facility] [place] [facility] [address] [id number] [place] [address]- 7986 Mar, [facility] [place] [facility] [address] [id number] [place] [address]- 5001 Mar, [facility] [place] [facility] [address] [id number] [place] [address]- 2317 Mar, [facility] [place] [facility] [address] [id number] [place] [address]- 0683 Mar, [facility] [place] [facility] [address] [id number] [place] [address]- 9626 Mar, [facility] [place] [facility] [address] [id number] [place] [address]- 6774 Mar, [facility] [place] [facility] [address] [id number] [place] [address]- 1639 Mar, [facility] [place] [facility] [address] [id number] [place] [address]- 8639 20 Mar, 2014 [facility] [place] [facility] [address] [id number] [place] [address]- 4435 20 Mar, 2014 [facility] [place] [facility] [address] [id number] [place] [address]- 7808 16 Mar, 2014 [facility] [place] [facility] [address] [id number] [place] [address]- 7699 16 Mar, 2013 [facility] [place] [facility] [address] [id number] [place] [address]- 6952 15 Mar, 2014 [facility] [place] [facility] [address] [id number] [place] [address]- 6722 14 Mar, 2014 [facility] [place] [facility] [address] [id number] [place] [address]- 2136 14 Mar, 2014 [facility] [place] [facility] [address] [id number] [place] [address]- 3298 14 Mar, 2013 [facility] [place] [facility] [address] [id number] [place] [address]- 3222 14 Mar, 2014 [facility] [place] [facility] [address] [id number] [place] [address]- 1424 09 Mar, 2013 [facility] [place] [facility] [address] [id number], [place] [address]- 7099 09 Mar, 2013 [facility] [place] [facility] [address] [id number], [place] [address]- 2722 09 Mar, 2013 [facility] [place] [facility] [address] [id number] [place] [address] Mar, [facility] [place] [facility] [address] [id number], [place] [address]- 8907 30 Feb, 2014 [facility] [place] [facility] [address] [id number] [place] [address]- 2059 30 Feb, 2014 [facility] [place] [facility] [address] [id number] [place] [address]- 8227 30 Feb, 2013 [facility] [place] [facility] [address] [id number] [place] [address] 2546 30 Feb, 2013 [facility] [place] [facility] [address] [id number] [place] [address] 2546 Feb, 2013 [facility] [place] [facility] [address] [id number] [place] [address]- 8826 Feb, 2013 [facility] [place] [facility] [address] [id number] [place] [address]- 2544 Feb, 2013 [facility] [place] [facility] [address] [id number] [place] [address]- 6219 Feb, 2013 [facility] [place] [facility] [address] [id number] [place] [address]- 6991 Feb, 2013 [facility] [place] [facility] [address] [id number] [place] [address]- 4239 Feb, 2013 [facility] [place] [facility] [address] [id number] [place] [address] Feb, 2013 [facility] [place] [facility] [address] [id number] [place] [address] Feb, 2013 [facility] [place] [facility] [address] [id number] [place] [address] Jan, [facility] [place] [facility] [address] [id number] [place] [address] Jan, [facility] [place] [facility] [address] [id number] [place] [address] Jan, [facility] [place] [facility] [address] [id number] [place] [address] Jan, [facility] [place] [facility] [address] [id number] [place] [address] Jan, [facility] [place] [facility] [address] [id number] [place] [address] Jan, [facility] [place] [facility] [address] [id number] [place] [address] Jan, [facility] [place] [facility] [address] [id number] [place] [address] Jan, [facility] [place] [facility] [address] [id number] [place] [address] Jan, [facility] [place] [facility] [address] [id number] [place] [address] Jan, [facility] [place] [facility] [address] [id number] [place] [address] Jan, [facility] [place] [facility] [address] [id number] [place] [address]- [address] Jan, [facility] [place] [facility] [address] [id number] [place] [address]- [address] Jan, [facility] [place] [facility] [address] [id number] [place] [address] Dec, [facility] [place] [facility] [address] [id number] [place] [address] Dec, [facility] [place] [facility] [address] [id number] [place] [address] Dec, [facility] [place] [facility] [address] [id number] [place] [address]- [address] Dec, [facility] [place] [facility] [address] [id number] [place] [address]- [address] Dec, [facility] [place] [facility] [address] [id number] [place] [address] Dec, [facility] [place] [facility] [address] [id number] [place] [address]- [address] Dec, [facility] [place] [facility] [address] [id number] [place] [address]- [address] Dec, [facility] [place] [facility] [address] [id number] [place] [address]- [address] Dec, 2013 [facility] [place] [facility] [address] [id number] [place] [address]- [address] Dec, 2013 [facility] [place] [facility] [address] [id number] [place] [address] Dec, 2013 [facility] [place] [facility] [address] [id number] [place] [address]- [address] Dec, 2013 [facility] [place] [facility] [address] [id number] [place] [address]- [address] Dec, 2013 [facility] [place] [facility] [address] [id number] [place] [address]- [address] Dec, 2013 [facility] [place] [facility] [address] [id number] [place] [address]- [address] Dec, 2013 [facility] [place] [facility] [address] [id number] [place] [address]- [address] Dec, [facility] [place] [facility] [address] [id number] [place] [address] Dec, [facility] [place] [facility] [address] [id number] [place] [address] Dec, [facility] [place] [facility] [address] [id number] [place] [address] Nov, [facility] [place] [facility] [address] [id number] [place] [address] Nov, [facility] [place] [facility] [address] [id number] [place] [address] Nov, [facility] [place] [facility] [address] [id number] [place] [address] Nov, [facility] [place] [facility] [address] [id number] [place] [address] Nov, [facility] [place] [facility] [address] [id number] [place] [address] 5647 Nov, [facility] [place] [facility] [address] [id number] [place] [address] 4833 Nov, [facility] [place] [facility] [address] [id number] [place] [address] 8498 Nov, [facility] [place] [facility] [address] [id number] [place] [address]- 7542 Nov, [facility] [place] [facility] [address] [id number] [place] [address]- 7677 Nov, [facility] [place] [facility] [address] [id number] [place] [address]- 3868 Nov, [facility] [place] [facility] [address] [id number] [place] [address]- 2984 Nov, [facility] [place] [facility] [address] [id number] [place] [address]- 5876 Nov, [facility] [place] [facility] [address] [id number] [place] [address] 7[address] Nov, [facility] [place] [facility] [address] [id number] [place] [address]- [address]64 Nov, [facility] [place] [facility] [address] [id number] [place] [address]- 2712 Nov, [facility] [place] [facility] [address] [id number] [place] [address] 6603 Nov, [facility] [place] [facility] [address] [id number] [place] [address]- 4223 Nov, [facility] [place] [facility] [address] [id number] [place] [address]- 9649 Nov, [facility] [place] [facility] [address] [id number] [place] [address]- 6937 Nov, [facility] [place] [facility] [address] [id number] [place] [address]- 1568 October, [facility] [place] [facility] [address] [id number] [place] [address]- 2206 October, [facility] [place] [facility] [address] [id number] [place] [address]- 6561 October, [facility] [place] [facility] [address] [id number] [place] [address]- 4943 October, [facility] [place] [facility] [address] [id number] [place] [address]- 6955 Sep, [facility] [place] [facility] [address] [id number] [place] [address]- 4609 Sep, [facility] [place] [facility] [address] [id number] [place] [address]- 4839 Sep, [facility] [place] [facility] [address] [id number] [place] [address]- 8739 Sep, [facility] [place] [facility] [address] [id number] [place] [address]- 4252 Sep, [facility] [place] [facility] [address] [id number] [place] [address]- 6743 Sep, [facility] [place] [facility] [address] [id number] [place] [address]- 6807 Sep, [facility] [place] [facility] [address] [id number] [place] [address]- 0216 Sep, [facility] [place] [facility] [address] [id number] [place] [address]- 0096 Sep, [facility] [place] [facility] [address] [id number] [place] [address]- 7562 Aug, [facility] [place] [facility] [address] [id number] [place] [address]- 7459 Aug, [facility] [place] [facility] [address] [id number] [place] [address]- 0898 Aug, [facility] [place] [facility] [address] [id number] [place] [address]- 0472 Aug, [facility] [place] [facility] [address] [id number] [place] [address]- 5[address] 07 Aug, 2013 [facility] [place] [facility] [address] [id number] [place] [address]- 0612 Aug, [facility] [place] [facility] [address] [id number] [place] [address]- 8000 Aug, [facility] [place] [facility] [address] [id number] [place] [address]- 1272 Aug, [facility] [place] [facility] [address] [id number] [place] [address]- 7257 Jul, [facility] [place] [facility] [address] [id number] [place] [address]- 9251 Jul, [facility] [place] [facility] [address] [id number] [place] [address]- 2175 Jun, [facility] [place] [facility] [address] [id number] [place] [address]- 3840 Jun, [facility] [place] [facility] [address] [id number] [place] [address]- 3282 Jun, [facility] [place] [facility] [address] [id number] [place] [address]- 8833 Jun, [facility] [place] [facility] [address] [id number] [place] [address]- 0310 Jun, [facility] [place] [facility] [address] [id number] [place] [address]- 4045 Jun, [facility] [place] [facility] [address] [id number] [place] [address]- 5321 Jun, [facility] [place] [facility] [address] [id number] [place] [address]- 9390 15 Jun, 2013 [facility] [place] [facility] [address] [id number] [place] [address]- 2058 15 Jun, 2013 [facility] [place] [facility] [address] [id number] [place] [address]- 6151 14 Jun, 2013 [facility] [place] [facility] [address] [id number] [place] [address]- 1079 Jun, [facility] [address] [id number] [place] [address]- 1763 Jun, [facility] [address] [id number] [place] [address]- 2820 May, [facility] [address] [id number] [place] [address]- 0220 May, [facility] [address] [id number] [place] [address] May, [facility] [address] [id number] [place] [address]- 8747 May, [facility] [address] [id number] [place] [address]- 7176 May, [facility] [address] [id number] [place] [address]- 1424 May, [facility] [address] [id number] [place] [address]- 4983 May, [facility] [address] [id number] [place] [address]- 9766 May, [facility] [address] [id number] [place] [address]- 2831 May, [facility] [address] [id number] [place] [address]- 6883 16 May, 2013 [facility] [place] [facility] [address] [id number] [place] [address]- 9108 16 May, 2013 [facility] [place] [facility] [address] [id number] [place] [address]- 6672 16 May, 2013 [facility] [place] [facility] [address] [id number] [place] [address]- 1458 16 May, 2013 [facility] [place] [facility] [address] [id number] [place] [address]- 5885 Apr, [facility] [place] [facility] [address] [id number] [place] [address]- 8166 Apr, [facility] [place] [facility] [address] [id number] [place] [address] Mar, [facility] [place] [facility] [address] [id number] [place] [address]- 2253 Mar, [facility] [place] [facility] [address] [id number] [place] [address]- 4345 Feb, [facility] [place] [facility] [address] [id number] [place] [address]- 0939 Feb, [facility] [place] [facility] [address] [id number] [place] [address]- 0593 Feb, [facility] [place] [facility] [address] [id number] [place] [address]- 6727 Feb, [facility] [place] [facility] [address] [id number] [place] [address]- 6184 Jan, [facility] [place] [facility] [address] [id number] [place] [address]- 7449 Jan, [facility] [place] [facility] [address] [id number] [place] [address]- 0748 Jan, [facility] [place] [facility] [address] [id number] [place] [address]- 1900 Jan, [facility] [place] [facility] [address] [id number] [place] [address]- 6890 Jan, [facility] [place] [facility] [address] [id number] [place] [address]- 1644 Jan, [facility] [place] [facility] [address] [id number] [place] [address]- 8141 Dec, [facility] [place] [facility] [address] [id number] [place] [address]- 6575 Dec, [facility] [place] [facility] [address] [id number] [place] [address]- 6596 Dec, [facility] [address] [id number] [place] [address]- 3027 Dec, [facility] [address] [id number] [place] [address]- 2546 Nov, [facility] [address] [id number] [place] [address]- 3236 October, [facility] [address] [id number] [place] [address]- 9726 October, [facility] [address] [id number] [place] [address]- 5886 October, [facility] [address] [id number] [place] [address]- 1407 Sep, [facility] [address] [id number] [place] [address]- 5955 Sep, [facility] [address] [id number] [place] [address]- 9782 Jun, [facility] [address] [id number] [place] [address]- 4829 Jun, [facility] [address] [id number] [place] [address]- 6884 Jun, [facility] [address] [id number] [place] [address]- 2483 Apr, [facility] [address] [id number] [place] [address]- 0155 Apr, [facility] [place] [facility] [address] [id number] [place] [address]- 4126 Apr, [facility] [address] [id number] [place] [address]- 5766 Apr, [facility] [address] [id number] [place] [address]- 5569 Mar, [facility] [place] [facility] [address] [id number] [place] [address]- 9379 Mar, [facility] [place] [facility] [address] [id number] [place] [address]- 0307 Mar, [facility] [place] [facility] [address] [id number] [place] [address]- 7886 Mar, [facility] [place] [facility] [address] [id number] [place] [address]- 8132 Feb, [facility] [place] [facility] [address] [id number] [place] [address]- 0196 Feb, [facility] [place] [facility] [address] [id number] [place] [address]- 1612 Feb, [facility] [place] [facility] [address] [id number] [place] [address]- 3563 Jan, [facility] [place] [facility] [address] [id number] [place] [address]- 6532 Jan, [facility] [place] [facility] [address] [id number] [place] [address]- 3042 Jan, [facility] [place] [facility] [address] [id number], [place] [address]- 4765 Jan, [facility] [place] [facility] [address] [id number] [place] [address]- 3054 Dec, [facility] [place] [facility] [address] [id number], [place] [address]- 7034 Dec, [facility] [place] [facility] [address] [id number] [place] [address]- 0156 Nov, [facility] [place] [facility] [address] [id number] [place] [address]- 3579 Nov, [facility] [place] [facility] [address] [id number] [place] [address]- 9234 October, [facility] [place] [facility] [address] [id number], [place] [address]- 4876 October, [facility] [address] [id number] [place] [address]- 3684 October, [facility] [place] [facility] [address] [id number] [place] [address]- 5304 Sep, [facility] [place] [facility] [address] [facility] [id number] [place] [address]- 9946 Sep, [facility] [place] [facility] [address] [facility] [id number] [place] [address]- 4282 Sep, [facility] [address] [id number] [place] [address]- 3282 27 Aug, 2011 [facility] [place] [facility] [address] [facility] [id number] [place] [address]- 3516 26 Aug, 2011 [facility] [id number] [address]- 4921 Aug, [facility] [place] [facility] [address] [facility] [id number] [place] [address]- 7169 15 Aug, 2011 [facility] [address] [id number] [address]- 9049 Aug, [facility] [address] [id number] [address]- 9426 23 Jul, 2011 [facility] [place] [facility] [id number] [address]- 7931 16 Jul, 2011 [facility] [place] [facility] [address] [facility] [id number] [place] [address]- 7690 13 Jul, 2011 [facility] [place] [facility] [address] [id number] [place] [address]- 9832 09 Jul, 2011 [facility] [place] [facility] [address] [facility] [id number] [place] [address]- 7151 07 Jul, 2011 [facility] [place] [facility] [address] [id number] [address]- 8304 Jul, [facility] [place] [facility] [address] [id number] [place] [address]- 5662 Jul, [facility] [place] [facility] [address] [id number] [place] [address]- 4940 Jul, [facility] [place] [facility] [address] [id number] [place] [address]- 0394 Jun, [facility] [place] [facility] [address] [id number] [place] [address]- 5424 Jun, [facility] [place] [facility] [address] [id number] [place] [address]- 9283 May, [facility] [place] [facility] [address] [id number] [place] [address]- 2239 May, [facility] [place] [facility] [address] [id number] [place] [address]- 3345 May, [facility] [place] [facility] [address] [id number], [place] [address]- 2755 May, [facility] [place] [facility] [address] [id number] [place] [address]- 9481 Apr, [facility] [place] [facility] [address] [id number], [place] [address]- 2272 Apr, [facility] [place] [facility] [address] [id number], [place] [address]- 2633 Apr, [facility] [place] [facility] [address] [id number], [place] [address]- 3489 Mar, [facility] [place] [facility] [address] [id number], [place] [address]- 9420 Mar, [facility] [place] [facility] [address] [id number], [place] [address]- 9899 Mar, [facility] [place] [facility] [address] [facility] [id number], [place] [address]- 2063 Mar, [facility] [place] [facility] [address] [id number], [place] [address]- 8138 Dec, [facility] [id number], [place] [address]- 6094 October, [facility] [id number], [place] [address]- 0736 May, [facility] [address] [id number] [address]30 May, [facility] [id number] [place] [address] 012499- 4147 May, [facility] [id number] [place] [address] 65776- 9889 May, [facility] [id number] [place] [address] 884628- 9594 Mar, [facility] [id number] [place] [address] 87684- 8661 Mar, [facility] [id number], [place] [address]- 1643 May, [facility] [id number], [place] [address]- 6252 May, [facility] [id number], [place] [address]- 4832 May, [facility] [id number], [place] [address]- 4089 May, [facility] [id number], [place] [address]- 2038 Apr, [facility] [id number] 7472 Apr, [facility] [id number] 2842 October, IMMUNIZATIONS No Known Immunizations SOCIAL HISTORY [...]
--- OUTSIDE RECORDS SUMMARY | 2018-03-17 11:13 | XMS REPORT ---
Author Author THOMAS JENNINGS Organization [facility] Address [address] [place] [address] Care Team Providers Care Supervisor [employer] Name Role Phone MICHAELA THOMAS Unavailable PROBLEMS Type Condition ICD9-CM Code LTR03-MR Code Onset Dates Condition Status SNOMED Code Problem Other chronic pain G89.29 Active 20467035 Problem On home oxygen therapy Z99.81 Active 385022375958 Problem Mild chronic obstructive pulmonary disease J44.9 Active 340152992 Problem COPD (chronic obstructive pulmonary disease) with chronic bronchitis J44.9 Active 599815202 Problem History of illicit drug use Z87.898 Active 298984344 Problem COPD exacerbation J44.1 Active 403578003 Problem Neuropathy G62.9 Active 681203914 Problem Essential hypertension I10 Active 54738143 Problem 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 Active 05971604 Problem Major depressive disorder, recurrent episode, moderate F33.1 Active 502685593 Problem Impaired circulation I99.9 Active 10733520 Problem 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 Active 25815614 Problem Snoring R06.83 Active 67699828 Problem MRSA (methicillin resistant staph aureus) culture positive Z22.322 Active 787474406 Problem Fatigue R53.83 Active 37978156 Problem Varicose veins of both lower extremities I83.93 Active 32010915 Problem Dysthymic disorder F34.1 Active 58688728 Problem Upper respiratory tract infection, unspecified type J06.9 Active 50999103 Problem Panic disorder without agoraphobia F41.0 Active 54867979 Problem Mild persistent asthma without complication J45.30 Active 654885572 ALLERGIES Substance Reaction Event Type Date Status Sulfamethoxazole-Trimethoprim Unknown Drug Allergy Dec, Active Codeine Phosphate swelling Drug Allergy Dec, Active ENCOUNTERS Encounter Location Date Diagnosis [facility] [address] [facility] [id number] [address] Feb, [facility] [id number] [place] [address] 08892- 6567 Feb, [facility] [id number] [place] [address] 13409- 5016 Feb, Dysthymic disorder F34.1 [place] [id number] [place] [address] 63447- 3525 Feb, [place] [address] [address]263- 8784 Jan, [place] [id number] [place] [address] 84597- 4866 Jan, Abrasion of right elbow, initial encounter S50.311A ; Abrasion, right knee, initial encounter S80.211A and Sprain of other ligament of right ankle, initial encounter S93.491A [place] [id number] [place] [address] 63644- 6619 Jan, [facility] [id number] [place] [address] 26137 -9579 Jan, Injury of left ankle, initial encounter S99.912A ; Fall down stairs, initial encounter W10.8XXA and BMI 45.0-49.9, adult Z68.42 [place] [id number] [place] [address] 28971- 2520 Jan, COPD exacerbation J44.1 [place] [address] 99704- 9632 Jan, Dysfunction of both eustachian 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 [place] [id number] [place] [address] 92833- 6134 Jan, Bronchitis J40 and Acute suppurative otitis media of left ear without spontaneous rupture of tympanic membrane, recurrence not specified H66.002 [place] [id number] [place] [address] 72747- 8128 Jan, [place] [address] [place] [address] 8660 Jan, Bronchitis J40 and BMI 40.0-44.9, adult Z68.41 [place] [id number] [place] [address] 66046- 1870 Jan, [place] [id number] [place] [address] 78640- 7409 Dec, Gastric pain R10.9 [place] [id number] [place] [address] 55008- 1440 Dec, [place] [id number] [place] [address] 30613- 1026 Dec, History of illicit drug use Z87.898 ; Neuropathy G62.9 ; COPD (chronic obstructive pulmonary disease) with chronic bronchitis J44.9 and Acute pain of right knee M25.561 [place] [id number] [place] [address] 28573- 0434 Nov, [place] [id number] [place] [address] 72734- 2125 15 Nov, 2017 Onychomycosis B35.1 and Contusion of left foot, subsequent encounter S90.32XD [place] [id number] [place] [address] 96308- 1926 Nov, COPD exacerbation J44.1 [place] [id number] [place] [address] 64251- 1873 Sep, [place] [id number] [place] [address] 39193- 9136 Sep, Dysthymic disorder F34.1 ; Tobacco abuse Z72.0 ; Pain in right knee M25.561 ; Pain in left knee M25.562 ; Other chronic pain G89.29 and BMI 40.0-44.9, adult Z68.41 [place] [address] [place] [address] 60388- 8410 Aug, Major depressive disorder, recurrent episode, moderate F33.1 and 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 [place] [id number] [place] [address] 23254- 7298 14 Aug, 2017 Dysthymic disorder F34.1 ; Non-pressure chronic ulcer of left thigh, unspecified ulcer stage L97.129 ; Tobacco abuse Z72.0 ; Mild chronic obstructive pulmonary disease J44.9 and Forgetfulness R68.[address] 13817- 7588 09 Aug, 2017 Onychomycosis B35.1 ; Fissure in skin of foot R23.4 and Foot callus L84 [facility] [address] [address] -[address] Jul, Right medial knee pain M25.561 ; Upper respiratory tract infection, unspecified type J06.9 and BMI 40.0-44.9, adult Z68.41 [facility] [address] [address]76 -1460 Jul, Nausea and vomiting, intractability of vomiting not specified, unspecified vomiting type R11.2 ; Left ear pain H92.02 and Gastric pain R10.[address] 70667- 4655 Apr, Encounter for immunization Z23 [address] 31838- 8869 Apr, Onychomycosis B35.1 ; Xerosis of skin L85.3 ; Neuropathy G62.9 and 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 [place] [address] 75274- 8014 Jan, Onychomycosis B35.1 and Neuropathy G62.9 [place] [address] 44020- 0097 Dec, [place] [address] 54900- 4324 Dec, [facility] [address] [address] 4701 Nov, [facility] [address] [address]- 5485 Aug, [facility] [address] 7937 Aug, [facility] [address] [place] [address] 59828- 2139 Jul, [facility] [address] [address]- 7701 Jul, [facility] [address], [place] [address]- 7441 Jul, Decubitus ulcer of left thigh, stage 2 L89.892 [facility] [address], [place] [address]- 8411 17 Jul, 2016 Decubitus ulcer of left thigh, stage 2 L89.892 [facility] [address] [address]- 5542 17 Jul, 2016 [facility] [address], [place] [address]- 9152 15 Jul, 2016 Decubitus ulcer of left thigh, stage 2 L89.892 [facility] [address], [place] [address]- 9300 14 Jul, 2016 [facility] [address], [place] [address]- 6191 13 Jul, 2016 Cellulitis of other specified site L03.818 ; Illicit drug use F19.90 and Decubitus ulcer of left thigh, stage 2 L89.892 [facility] [address] [address]- 3350 08 Jul, 2016 [facility] [address] [place] [address] 03602- 3648 Jul, Cellulitis of right breast N61.0 [facility] [id number] [place] [address] 72660- 4079 Jun, [facility] [id number] [place] [address] 82551- 4180 Jun, [facility] [address] 40743- 7521 Jun, Wheezing R06.2 and Arthralgia, unspecified joint M25.50 [facility] [address] 77297- 0615 May, [place] [address] 38552- 9443 May, [place] [address] 76785- 8647 May, [facility] [address] 26959- 5869 May, Shortness of breath R06.02 [place] [address] 23740- 4205 May, Onychomycosis B35.1 and Fissure in skin of foot R23.4 [place] [id number] [place] [address] 67943- 3614 Apr, [facility] [address] 41715 -6833 18 Apr, 2016 Dizziness R42 [facility] [id number] [place] [address] 00598- 3458 14 Apr, 2016 Shortness of breath R06.02 ; Essential hypertension I10 ; Dizziness R42 and On home oxygen therapy Z99.81 [facility] [id number] [place] [address] 23900- 1645 Apr, [facility] [address] 46899- 7067 Apr, [facility] [address], [place] [address]- 1796 Apr, [facility] [address], [place] [address]- 3252 Apr, [facility] [address], [place] [address]- 0313 Apr, [facility] [address], [place] [address]- 6068 Apr, [facility] [address], [place] [address]- 5850 Apr, [facility] [address], [place] [address]- 3852 Mar, Mild chronic obstructive pulmonary disease J44.9 [facility] [address] [address]- 3067 Mar, [facility] [address], [place] [address]- 6307 Mar, Epigastric pain R10.13 ; Low back pain M54.5 ; Other chronic pain G89.29 and Breast cancer screening Z12.39 [facility] [address], [place] [address]- 6670 Mar, [facility] [address], [place] [address]- 8897 Mar, [facility] [address], [place] [address]- 1080 Feb, [facility] [address], [place] [address]- 0495 Feb, [facility] [address], [place] [address]- 8791 Feb, 2016 Fissure in skin of foot R23.4 and Onychomycosis B35.1 [facility] [id number] [place] [address] 84045- 9832 Jan, 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 [facility] [id number] [place] [address] 46623- 1339 Dec, 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 [facility] [id number] [place] [address] 18827- 0171 07 Dec, 2015 Mild persistent asthma without complication J45.30 ; Dysthymic disorder F34.1 and Upper respiratory tract infection, unspecified type J06.9 [facility] [id number] [place] [address] 93109- 7038 Nov, 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 [facility] [id number] [place] [address] 61812- 5219 October, 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 [facility] [id number] [place] [address] 93532- 6897 Sep, Panic disorder without agoraphobia F41.0 ; 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 and Dysthymic disorder F34.1 [facility] [id number] [place] [address] 51230- 9547 Sep, Panic attacks F41.0 [facility] [id number] [place] [address] 80419- 5339 Sep, [facility] [id number] [place] [address] 78670- 3495 Sep, Panic disorder without agoraphobia F41.0 ; Varicose veins of both lower extremities I83.93 and Fatigue R53.83 [facility] [id number] [place] [address] 97875- 3559 14 Sep, 2015 Fatigue R53.83 [facility] [id number] [place] [address] 13279- 6086 05 Sep, 2015 [facility] [id number] [place] [address] 48034- 0993 Aug, [place] [address] [place] [address] 37371- 3947 Aug, [place] [address] [place] [address] 35086- 2472 Aug, 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 [place] [address] [place] [address] 16605- 9447 Aug, Panic disorder without agoraphobia F41.0 ; 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 and Dysthymic disorder F34.1 [place] [address] [place] [address] 12300- 6854 Aug, Shortness of breath R06.02 ; Panic attacks F41.0 ; COPD ( chronic obstructive pulmonary disease) J44.9 ; Tobacco abuse Z72.0 ; Family history of diabetes mellitus Z83.3 and Weight gain R63.5 [place] [id number] [place] [address] 91084- 3324 Aug, [place] [id number] [place] [address] 64295- 7918 Jul, [place] [id number] [place] [address] 84715- 4865 Jun, Onychomycosis B35.1 ; Neuropathy G62.9 and Impaired circulation I99.9 [place] [address] [place] [address] 11676- 5891 09 Mar, 2015 Fissure in skin of foot R23.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 [place] [id number] [place] [address] 36326- 0303 18 Feb, 2015 Family history of coronary arteriosclerosis V17.3 [place] [id number] [place] [address] 64765- 0927 15 Feb, 2015 Allergic rhinitis due to pollen 477.0 ; Unspecified breast screening V76.10 ; Anxiety 300.00 and Family history of coronary arteriosclerosis V17.3 [facility] [address] [facility] [id number] [address]- 3264 Jan, [facility] [id number] [address]- 3876 Dec, [facility] [address] [address]- 7499 Dec, Onychomycosis 110.1 and Skin fissures 709.8 [facility] [address] [id number] [address]- 0344 Sep, [facility] [address] [facility] [id number] [place] [address] 21513- 5850 Sep, [facility] [address], [place] [address]- 7423 Aug, [facility] [address], [place] [address]- 5399 Aug, [facility] [address], [place] [address]- 4954 Jul, [facility] [address], [place] [address]- 5859 Jul, [facility] [address], [place] [address]- 6564 Jun, [facility] [address], [place] [address]- 7214 Jun, [facility] [address] [facility] [id number], [place] [address]- 6360 Jun, [facility] [id number] [address]- 2151 Jun, [facility] [id number] 2651 Jun, [facility] [address], [place] [address]- 9741 May, [facility] [place] [facility] [address] [id number] [place] [address]- 6375 May, [facility] [place] [facility] [address] [id number] [place] [address]- 5169 May, [facility] [place] [facility] [address] [id number] [place] [address]- 3693 May, [facility] [place] [facility] [address] [id number] [place] [address]- 5682 May, [facility] [place] [facility] [address] [id number] [place] [address]- 8055 May, [facility] [place] [facility] [address] [id number] [place] [address]- 3304 May, [facility] [place] [facility] [address] [id number] [place] [address]- 3677 May, [facility] [place] [facility] [address] [id number] [place] [address]- 8231 Apr, [facility] [place] [facility] [address] [id number] [place] [address]- 6492 Apr, [facility] [place] [facility] [address] [id number] [place] [address]- 9776 Apr, [facility] [place] [facility] [address] [id number] [place] [address]- 0123 Apr, [facility] [place] [facility] [address] [id number] [place] [address]- 3956 Apr, [facility] [place] [facility] [address] [id number] [place] [address]- 7974 Apr, [facility] [place] [facility] [address] [id number] [place] [address]- 5495 Apr, [facility] [place] [facility] [address] [id number] [place] [address]- 1160 Apr, [facility] [place] [facility] [address] [id number] [place] [address]- 0147 Apr, [facility] [place] [facility] [address] [id number] [place] [address]- 1981 Apr, [facility] [place] [facility] [address] [id number] [place] [address]- 7341 Mar, [facility] [place] [facility] [address] [id number] [place] [address]- 5023 Mar, [facility] [place] [facility] [address] [id number] [place] [address]- 3565 Mar, [facility] [place] [facility] [address] [id number] [place] [address]- 0380 Mar, [facility] [place] [facility] [address] [id number] [place] [address]- 8643 Mar, [facility] [place] [facility] [address] [id number] [place] [address]- 1525 Mar, [facility] [place] [facility] [address] [id number] [place] [address]- 5219 Mar, [facility] [place] [facility] [address] [id number] [place] [address]- 9958 Mar, [facility] [place] [facility] [address] [id number] [place] [address]- 8189 Mar, [facility] [place] [facility] [address] [id number] [place] [address]- 8451 Mar, [facility] [place] [facility] [address] [id number] [place] [address]- 7576 Mar, [facility] [place] [facility] [address] [id number] [place] [address]- 7037 Mar, [facility] [place] [facility] [address] [id number] [place] [address]- 2551 Mar, [facility] [place] [facility] [address] [id number] [place] [address]- 2232 Mar, [facility] [place] [facility] [address] [id number] [place] [address]- 7013 22 Mar, 2013 [facility] [place] [facility] [address] [id number] [place] [address]- 4711 20 Mar, 2013 [facility] [place] [facility] [address] [id number] [place] [address]- 9664 20 Mar, 2014 [facility] [place] [facility] [address] [id number] [place] [address]- 5532 16 Mar, 2014 [facility] [place] [facility] [address] [id number] [place] [address]- 2116 16 Mar, 2014 [facility] [place] [facility] [address] [id number] [place] [address]- 8038 15 Mar, 2014 [facility] [place] [facility] [address] [id number] [place] [address]- 5909 14 Mar, 2014 [facility] [place] [facility] [address] [id number] [place] [address]- 6937 14 Mar, 2014 [facility] [place] [facility] [address] [id number] [place] [address]- 2557 14 Mar, 2014 [facility] [place] [facility] [address] [id number] [address]- 2055 14 Mar, 2014 [facility] [place] [facility] [address] [id number], [place] [address]- 3499 09 Mar, 2014 [facility] [place] [facility] [address] [id number], [place] [address]- 3444 09 Mar, 2014 [facility] [place] [facility] [address] [id number] [place] [address]- 4588 Mar, [facility] [place] [facility] [address] [id number], [place] [address]- 6968 Mar, [facility] [place] [facility] [address] [id number] [place] [address]- 3166 30 Feb, 2014 [facility] [place] [facility] [address] [id number] [place] [address]- 1640 30 Sep, 2013 [facility] [place] [facility] [address] [id number] [place] [address]- 3368 30 Sep, 2013 [facility] [place] [facility] [address] [id number] [place] [address]- 9486 30 Feb, 2013 [facility] [place] [facility] [address] [id number] [place] [address]- 1253 Feb, 2013 [facility] [place] [facility] [address] [id number] [place] [address]- 9612 26 Feb, 2013 [facility] [place] [facility] [address] [id number] [place] [address]- 9725 Feb, 2013 [facility] [place] [facility] [address] [id number] [place] [address]- 6551 Feb, 2013 [facility] [place] [facility] [address] [id number] [place] [address]- 8979 Feb, 2013 [facility] [place] [facility] [address] [id number] [place] [address]- 1590 Feb, 2013 [facility] [place] [facility] [address] [id number] [place] [address] Feb, 2013 [facility] [place] [facility] [address] [id number] [place] [address] Feb, 2013 [facility] [place] [facility] [address] [id number] [place] [address] Jan, [facility] [place] [facility] [address] [id number] [place] [address] Jan, [facility] [place] [facility] [address] [id number] [place] [address] Jan, [facility] [place] [facility] [address] [id number] [place] [address] Jan, [facility] [place] [facility] [address] [id number] [place] [address] Jan, [facility] [place] [facility] [address] [id number] [facility] [place] [address] Jan, [facility] [place] [facility] [address] [id number] [place] [address] Jan, [facility] [place] [facility] [address] [id number] [place] [address] Jan, [facility] [place] [facility] [address] [id number] [place] [address] Jan, [facility] [place] [facility] [address] [id number] [place] [address] Jan, [facility] [place] [facility] [address] [id number] [place] [address] Jan, [facility] [place] [facility] [address] [id number] [place] [address] Jan, [facility] [place] [facility] [address] [id number] [place] [address] Jan, [facility] [place] [facility] [address] [id number] [place] [address] Dec, [facility] [place] [facility] [address] [id number] [place] [address] Dec, [facility] [place] [facility] [address] [id number] [place] [address] Dec, [facility] [place] [facility] [address] [id number] [place] [address] Dec, [facility] [place] [facility] [address] [id number] [place] [address] Dec, [facility] [place] [facility] [address] [id number] [place] [address] Dec, [facility] [place] [facility] [address] [id number] [place] [address] Dec, [facility] [place] [facility] [address] [id number] [place] [address] Dec, [facility] [place] [facility] [address] [id number] [place] [address] Dec, [facility] [place] [facility] [address] [id number] [place] [address] Dec, [facility] [place] [facility] [address] [id number] [place] [address] Dec, 2013 [facility] [place] [facility] [address] [id number] [place] [address] Dec, 2013 [facility] [place] [facility] [address] [id number] [place] [address] Dec, [facility] [place] [facility] [address] [id number] [place] [address] Dec, [facility] [place] [facility] [address] [id number] [place] [address] Dec, [facility] [place] [facility] [address] [id number] [place] [address] Dec, [facility] [place] [facility] [address] [id number] [place] [address] Dec, [facility] [place] [facility] [address] [id number] [place] [address] Dec, [facility] [place] [facility] [address] [id number] [place] [address] Nov, [facility] [place] [facility] [address] [id number] [place] [address] Nov, [facility] [place] [facility] [address] [id number] [place] [address] 9665 Nov, [facility] [place] [facility] [address] [id number] [place] [address] Nov, [facility] [place] [facility] [address] [id number] [place] [address] 3581 Nov, [facility] [place] [facility] [address] [id number] [place] [address] 6[address] Nov, [facility] [place] [facility] [address] [id number] [place] [address] 9551 Nov, [facility] [place] [facility] [address] [id number] [place] [address] 5645 Nov, [facility] [place] [facility] [address] [id number] [place] [address] 7121 Nov, [facility] [place] [facility] [address] [id number] [place] [address]- 9634 Nov, [facility] [place] [facility] [address] [id number] [place] [address]- 6383 Nov, [facility] [place] [facility] [address] [id number] [place] [address]- 9145 Nov, [facility] [place] [facility] [address] [id number] [place] [address]- 7522 Nov, [facility] [place] [facility] [address] [id number] [place] [address]- 4570 Nov, [facility] [place] [facility] [address] [id number] [place] [address]- 1707 Nov, [facility] [place] [facility] [address] [id number] [place] [address]- 1215 Nov, [facility] [place] [facility] [address] [id number] [place] [address]- 5771 Nov, [facility] [place] [facility] [address] [id number] [place] [address]- 4403 Nov, [facility] [place] [facility] [address] [id number] [place] [address]- 4602 Nov, [facility] [place] [facility] [address] [id number] [place] [address]- 8214 Nov, [facility] [place] [facility] [address] [id number] [place] [address]- 1467 October, [facility] [place] [facility] [address] [id number] [place] [address] 1295 October, [facility] [place] [facility] [address] [id number] [place] [address]- 6830 October, [facility] [place] [facility] [address] [id number] [place] [address] October, [facility] [place] [facility] [address] [id number] [place] [address]- 4371 Sep, [facility] [place] [facility] [address] [id number] [place] [address]- 5138 Sep, [facility] [place] [facility] [address] [id number] [place] [address]- 5759 Sep, [facility] [place] [facility] [address] [id number] [place] [address]- 6359 Sep, [facility] [place] [facility] [address] [id number] [place] [address]- 6342 Sep, [facility] [place] [facility] [address] [id number] [place] [address]- 0443 Sep, [facility] [place] [facility] [address] [id number] [place] [address]- 1055 Sep, [facility] [place] [facility] [address] [id number] [place] [address]- 7922 Sep, [facility] [place] [facility] [address] [id number] [place] [address]- 2722 Sep, [facility] [place] [facility] [address] [id number] [place] [address]- 0364 Aug, [facility] [place] [facility] [address] [id number] [place] [address]- 0227 Aug, [facility] [place] [facility] [address] [id number] [place] [address] Aug, [facility] [place] [facility] [address] [id number][place] [address] 46[address] Aug, [facility] [place] [facility] [address] [id number] [place] [address]- 2119 Aug, [facility] [place] [facility] [address] [id number] [place] [address]- 4956 Aug, [facility] [place] [facility] [address] [id number] [place] [address]- 6784 Aug, [facility] [place] [facility] [address] [id number] [place] [address]- 7808 Aug, [facility] [place] [facility] [address] [id number] [place] [address]- 5968 Jul, [facility] [place] [facility] [address] [id number] [place] [address]- 5830 Jul, [facility] [place] [facility] [address] [id number] [place] [address]- 3453 Jun, [facility] [place] [facility] [address] [id number] [place] [address]- 8530 Jun, [facility] [place] [facility] [address] [id number] [place] [address]- 4861 Jun, [facility] [place] [facility] [address] [id number] [place] [address]- 7620 Jun, [facility] [place] [facility] [address] [id number] [place] [address]- 9607 Jun, [facility] [place] [facility] [address] [id number][place] [address]- 7315 Jun, [facility] [place] [facility] [address] [id number] [place] [address]- 2243 Jun, [facility] [place] [facility] [address] [id number] [place] [address]- 8358 Jun, [facility] [place] [facility] [address] [id number] [place] [address]- 4628 Jun, [facility] [place] [facility] [address] [id number] [place] [address]- 2775 Jun, [facility] [place] [facility] [address] [id number] [place] [address]- 4295 Jun, [facility] [place] [facility] [address] [id number] [place] [address]- 1226 Jun, [facility] [place] [facility] [address] [id number] [place] [address]- 9491 May, [facility] [place] [facility] [address] [id number] [place] [address]- 3596 May, [facility] [place] [facility] [address] [id number] [place] [address]- 6771 May, [facility] [place] [facility] [address] [id number] [place] [address]- 7005 May, [facility] [place] [facility] [address] [id number] [place] [address]- 9506 May, [facility] [place] [facility] [address] [id number] [place] [address]- 3404 May, [facility] [place] [facility] [address] [id number] [place] [address]- 8008 26 May, 2013 [facility] [place] [facility] [address] [id number] [place] [address]- 2634 May, [facility] [place] [facility] [address] [id number] [place] [address]- 9496 23 May, 2013 [facility] [place] [facility] [address] [id number] [place] [address]- 8466 16 May, 2013 [facility] [place] [facility] [address] [id number] [place] [address]- 7916 16 May, 2013 [facility] [place] [facility] [address] [id number] [place] [address]- 5246 16 May, 2013 [facility] [place] [facility] [address] [id number] [place] [address] 9030 May, [facility] [place] [facility] [address] [id number] [place] [address]- 5258 Apr, [facility] [place] [facility] [address] [id number] [place] [address]- 5053 Apr, [facility] [place] [facility] [address] [id number] [place] [address] Mar, [facility] [place] [facility] [address] [id number] [place] [address]- 2055 Mar, [facility] [place] [facility] [address] [id number] [place] [address]- 0596 Feb, [facility] [place] [facility] [address] [id number] [place] [address]- 5077 Feb, [facility] [place] [facility] [address] [id number] [place] [address]- 0097 Feb, [facility] [place] [facility] [address] [id number] [place] [address]- 9112 Feb, [facility] [place] [facility] [address] [id number] [place] [address]- 4322 Jan, [facility] [place] [facility] [address] [id number] [place] [address]- 4980 Jan, [facility] [place] [facility] [address] [id number], [place] [address]- 7886 Jan, [facility] [place] [facility] [address] [id number][place] [address]- 3495 Jan, [facility] [place] [facility] [address] [id number] [place] [address]- 1282 Jan, [facility] [place] [facility] [address] [id number][place] [address]- 8500 Jan, [facility] [place] [facility] [address] [id number] [place] [address]- 6302 Dec, [facility] [place] [facility] [address] [id number] [place] [address]- 1408 Dec, [facility] [address] [id number] [place] [address]- 7632 Dec, [facility] [place] [facility] [address] [id number] [place] [address]- 1826 Dec, [facility] [address] [id number] [place] [address]- 6768 Nov, [facility] [place] [facility] [address] [id number] [place] [address]- 4665 October, [facility] [address] [id number] [place] [address]- 8929 October, [facility] [address] [id number] [place] [address]- 3461 October, [facility] [address] [id number] [place] [address]- 6773 Sep, [facility] [address] [id number] [place] [address]- 3036 Sep, [facility] [place] [facility] [address] [id number] [place] [address]- 6250 Jun, [facility] [address] [id number] [place] [address]- 3379 Jun, [facility] [address] [id number] [place] [address]- 5958 Jun, [facility] [place] [facility] [address] [id number] [place] [address]- 2549 Apr, [facility] [place] [facility] [address] [id number] [place] [address]- 9582 Apr, [facility] [place] [facility] [address] [id number] [place] [address]- 5261 Apr, [facility] [address] [id number] [place] [address]- 5296 Apr, [facility] [place] [facility] [address] [id number] [place] [address]- 2381 Mar, [facility] [place] [facility] [address] [id number] [place] [address]- 7426 Mar, [facility] [place] [facility] [address] [id number] [place] [address]- 2500 Mar, [facility] [place] [facility] [address] [id number] [place] [address], [place] [address]- 9682 Mar, [facility] [place] [facility] [address] [id number] [place] [address]- 0577 Feb, [facility] [place] [facility] [address] [id number] [place] [address]- 3518 Feb, [facility] [place] [facility] [address] [id number] [place] [address]- 6599 Feb, [facility] [place] [facility] [address] [id number] [place] [address]- 2951 Jan, [facility] [place] [facility] [address] [id number] [place] [address]- 4331 Jan, [facility] [place] [facility] [address] [id number] [place] [address]- 3317 Jan, [facility] [place] [facility] [address] [id number] [place] [address]- 3502 Jan, [facility] [place] [facility] [address] [id number] [place] [address]- 1819 Dec, [facility] [place] [facility] [address] [id number] [place] [address]- 1850 Dec, [facility] [place] [facility] [address] [id number] [place] [address]- 6395 Nov, [facility] [place] [facility] [address] [id number] [place] [address]- 8443 Nov, [facility] [place] [facility] [address] [id number] [place] [address]- 4735 October, [facility] [address] [id number] [place] [address]- 4265 October, [facility] [place] [facility] [address] [id number] [place] [address]- 5084 October, [facility] [place] [facility] [address] [id number] [place] [address]- 9093 Sep, [facility] [place] [facility] [address] [id number] [place] [address]- 0651 Sep, [facility] [place] [facility] [address] [id number] [place] [address]- 6550 Sep, [facility] [address] [id number] [place] [address]- 8356 Aug, [facility] [address] [id number] [place] [address]- 3180 Aug, [facility] [place] [facility] [address] [id number] [place] [address]- 7587 Aug, [facility] [place] [facility] [address] [id number] [place] [address]- 5416 Aug, [facility] [place] [facility] [address] [facility] [id number] [place] [address]- 3456 Aug, [facility] [address] [id number] [place] [address]- 1457 Jul, [facility] [place] [facility] [address] [id number] [place] [address]- 5625 16 Jul, 2011 [facility] [place] [facility] [address] [id number] [place] [address]- 7383 Jul, [facility] [place] [facility] [address] [id number] [place] [address]- 3874 Jul, [facility] [place] [facility] [address] [facility] [id number] [place] [address] 07 Jul, 2011 [facility] [place] [facility] [address] [id number] [place] [address]- 3322 Jul, [facility] [place] [facility] [address] [id number] [place] [address]- 1037 Jul, [facility] [place] [facility] [address] [id number] [place] [address]- 1832 Jul, [facility] [place] [facility] [address] [id number] [place] [address]- 6899 Jun, [facility] [place] [facility] [address] [id number] [place] [address]- 7745 Jun, [facility] [place] [facility] [address] [id number] [place] [address]- 2771 May, [facility] [place] [facility] [address] [id number] [place] [address]- 9434 May, [facility] [place] [facility] [address] [id number] [place] [address]- 9319 May, [facility] [place] [facility] [address] [id number] [place] [address]- 0564 May, [facility] [place] [facility] [address] [id number] [place] [address]- 1017 Apr, [facility] [place] [facility] [address] [id number] [place] [address]- 2911 Apr, [facility] [place] [facility] [address] [id number][place] [address]- 4336 Apr, [facility] [place] [facility] [address] [id number] [place] [address]- 9341 Mar, [facility] [place] [facility] [address] [id number] [place] [address]- 2676 Mar, [facility] [place] [facility] [address] [id number] [place] [address]- 3073 Mar, [facility] [place] [facility] [address] [id number], [place] [address]- [address]885 2011 [facility] [address] [facility] [id number][place] [address]- 7296 Dec, [facility] [address] [facility] [id number], [place] [address]- 5126 October, [facility] [address] [facility] [id number] [place] [address]- 7946 May, [facility] [address] [facility] [id number], [place] [address] 2546 May, [facility] [address] [facility] [id number] [place] [address]- 2856 May, [facility] [address] [facility] [id number][place] [address]- 3600 May, [facility] [address] [facility] [id number], [place] [address]- 1834 Mar, [facility] [address] [facility] [id number], [place] [address]- 6245 Mar, [facility] [address] [facility] [id number], [place] [address]- 7256 May, [facility] [address] [facility] [id number], [place] [address]- 5293 30 May, 2009 [facility] [address] [facility] [id number], [place] [address]- 7350 May, [facility] [address] [facility] [id number] 5769 May, [facility] [address] [facility] [id number], [place] [address]- 9091 Apr, [facility] [address] [facility] [id number], [place] [address]- 3414 Apr, [facility] [address] [facility] [id number], [place] [address]- 8106 October, IMMUNIZATIONS No Known Immunizations SOCIAL HISTORY Never Assessed REASON FOR VISIT Transition of Care, med refills, lab work requested, PT fell 4 days ago and hurt her right leg-Debbi MOSS PLAN OF CARE VITAL SIGNS Height 64 in 2017-12-28 Weight 256.6 lbs 2017-12-28 Temperature 98.0 degrees Fahrenheit 2017-12-28 Heart Rate 80 bpm 2017-12-28 Respiratory Rate 22 2017-12-28 Oximetry on room air:96 % 2017-12-28 BMI 44.04 kg/m2 2017-12-28 Blood pressure systolic 142 mmHg 2017-12-28 Blood pressure diastolic 88 mmHg 2017-12-28 MEDICATIONS Medication Instructions Dosage Frequency Start Date End Date Duration Status Quinapril HCl 20 mg Orally Once a day 2 tablets 24h Active Ventolin HFA 108 (90 Base) MCG/ACT Inhalation every 4 hrs 2 puffs as needed 4h Dec, 90 days Active Simvastatin 40 mg Orally Once a day 1 tablet in the evening 24h 30 Active Nebulizer - as directed for use with inhaled medications Mar, lifetime Active Oxygen ... 2L with nasal cannula Active Gabapentin 300 MG Orally Once a day 1 capsule at bedtime 24h Active Fluoxetine HCl 20 mg Orally Once a day 1 capsule in the morning 24h Aug 90 days Active Estradiol 0.5 MG 1 tablet Active Cyclobenzaprine HCl 10 MG Orally every 6 hrs 1 tablet as needed for spasms 6h Active Ropinirole HCl 0.5 MG Orally Once a day 1 tablet 1 to 3 hours before bedtime 24h Active Toviaz 4 MG Orally Once a day 1 tablet 24h Active Montelukast Sodium 10 MG Orally Once a day 1 tablet in the evening 24h 90 days Active Nitrofurantoin Monohyd Macro 100 mg Orally Once a day 1 capsule with supper 24h Active Ranitidine HCl 150 MG Orally 2 times a day 1 tablet 12h Active Albuterol Sulfate (2.5 MG/3ML) 0.083% Inhalation every 6 hrs 3 ml as needed 6h Apr, Active Meloxicam 7.5 MG Orally Once a day 1 tablet 24h Active Tramadol HCl 50 mg Orally 2 times a day 1 tablet as needed 12h Active Symbicort 160-4.5 MCG/ACT Inhalation Twice a day 2 puffs 12h 16 Jun, 2018 90 days Active HydrOXYzine HCl 50 mg Orally 2 times a day 1 tablet 12h Active RESULTS No Results PROCEDURES Procedure Date Ordered Result Body Site X-RAY EXAM OF KNEE, 3 December 28, 2017 [facility] December [facility], 2017 [facility] VISIT ESTABLISHED PATIENT December 28, 2017 INSTRUCTIONS MEDICATIONS ADMINISTERED No Known Medications MEDICAL [...]
--- OUTSIDE RECORDS SUMMARY | 2018-03-17 11:14 | XMS REPORT ---
Author Author RASHEED RAHMAN [facility] Address [address] [place] [address] Care Team Providers Care Senior Qa Analyst Name Role Phone RASHEED RAHMAN Unavailable PROBLEMS Type Condition ICD9-CM Code DOJ07-LU Code Onset Dates Condition Status SNOMED Code Problem Other chronic pain G89.29 Active 33328309 Problem On home oxygen therapy Z99.81 Active 614577669831 Problem Mild chronic obstructive pulmonary disease J44.9 Active 717874457 Problem COPD (chronic obstructive pulmonary disease) with chronic bronchitis J44.9 Active 636369859 Problem History of illicit drug use Z87.898 Active 714981184 Problem COPD exacerbation J44.1 Active 297172966 Problem Neuropathy G62.9 Active 833797182 Problem Essential hypertension I10 Active 08127793 Problem 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 Active 21110063 Problem Major depressive disorder, recurrent episode, moderate F33.1 Active 580242955 Problem Impaired circulation I99.9 Active 47299504 Problem 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 Active 08828636 Problem Snoring R06.83 Active 01358903 Problem MRSA (methicillin resistant staph aureus) culture positive Z22.322 Active 250792059 Problem Fatigue R53.83 Active 09932118 Problem Varicose veins of both lower extremities I83.93 Active 86146744 Problem Dysthymic disorder F34.1 Active 72385259 Problem Upper respiratory tract infection, unspecified type J06.9 Active 80593306 Problem Panic disorder without agoraphobia F41.0 Active 99557183 Problem Mild persistent asthma without complication J45.30 Active 799336665 ALLERGIES No Information ENCOUNTERS Encounter Location Date Diagnosis [facility] [address] [facility] [id number], [place] [address] 28 Feb, 2018 [facility] [address] [facility] [id number], [place] [address] Feb, [place] [address] [id number] [place] [address] 85105- 7137 Jan, [place] [address] 04997- 3794 Jan, Abrasion of right elbow, initial encounter S50.311A ; Abrasion, right knee, initial encounter S80.211A and Sprain of other ligament of right ankle, initial encounter S93.491A [place] [address] 03029- 9017 Jan, [facility] [address] [address]60 Jan, Injury of left ankle, initial encounter S99.912A ; Fall down stairs, initial encounter W10.8XXA and BMI 45.0-49.9, adult Z68.42 [place] [address] 40031- 6524 Jan, COPD exacerbation J44.1 [place] [address] 28840- 0789 Jan, Dysfunction of both eustachian 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 [place] [id number] [place] [address] 32645- 0183 Jan, Bronchitis J40 and Acute suppurative otitis media of left ear without spontaneous rupture of tympanic membrane, recurrence not specified H66.002 [place] [id number] [place] [address] 62806- 5620 Jan, [place] [address] 36671- 8476 03 Jan, 2018 Bronchitis J40 and BMI 40.0-44.9, adult Z68.41 [place] [address] 10209- 3949 Jan, [place] [address] 58527- 2739 Dec, Gastric pain R10.9 [place] [id number] [place] [address] 71280- 2113 Dec, [place] [id number] [place] [address] 81005- 7142 Dec, History of illicit drug use Z87.898 ; Neuropathy G62.9 ; COPD (chronic obstructive pulmonary disease) with chronic bronchitis J44.9 and Acute pain of right knee M25.561 [place] [id number] [place] [address] 57760- 7910 Nov, [place] [id number] [place] [address] 02335- 6898 Nov, Onychomycosis B35.1 and Contusion of left foot, subsequent encounter S90.32XD [address] 7[address]35- 3725 Nov, COPD exacerbation J44.1 [place] [id number] [place] [address] 86537- 6728 Sep, [place] [id number] [place] [address] 54628- 9601 Sep, Dysthymic disorder F34.1 ; Tobacco abuse Z72.0 ; Pain in right knee M25.561 ; Pain in left knee M25.562 ; Other chronic pain G89.29 and BMI 40.0-44.9, adult Z68.41 [address] [place] [address] 72825- 5211 Aug, Major depressive disorder, recurrent episode, moderate F33.1 and 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 [place] [id number] [place] [address] 19718- 5385 Aug, Dysthymic disorder F34.1 ; Non-pressure chronic ulcer of left thigh, unspecified ulcer stage L97.129 ; Tobacco abuse Z72.0 ; Mild chronic obstructive pulmonary disease J44.9 and Forgetfulness R68.89 [place] [id number] [place] [address] 52608- 2826 Aug, Onychomycosis B35.1 ; Fissure in skin of foot R23.4 and Foot callus L84 [facility] [id number] [place] [address] 08672 -7993 Jul, Right medial knee pain M25.561 ; Upper respiratory tract infection, unspecified type J06.9 and BMI 40.0-44.9, adult Z68.41 [facility] [id number] [place] [address] 18711 -4458 Jul, Nausea and vomiting, intractability of vomiting not specified, unspecified vomiting type R11.2 ; Left ear pain H92.02 and Gastric pain R10.9 [place] [address] [address] [id number] [place] [address] 38498- 2317 Apr, Encounter for immunization Z23 [place] [address] 13530- 2231 Apr, Onychomycosis B35.1 ; Xerosis of skin L85.3 ; Neuropathy G62.9 and 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 [place] [id number] [place] [address] 50612- 7719 Jan, Onychomycosis B35.1 and Neuropathy G62.9 [place] [address] [id number] [place] [address] 37356- 1682 Dec, [place] [address] [id number] [place] [address] 79596- 5846 Dec, [place] [address] 88515- 8824 Nov, [place] [address] [id number] [place] [address] 83336- 4725 Aug, [place] [address] 68014- 0455 Aug, [facility] [address] [address]- 3471 Jul, [facility] [address], [place] [address]- 6237 Jul, [facility] [address], [place] [address]- 0004 Jul, Decubitus ulcer of left thigh, stage 2 L89.892 [facility] [address], [place] [address] 7214 Jul, Decubitus ulcer of left thigh, stage 2 L89.892 [facility] [address] [place] [address] 81733- 7347 Jul, [facility] [address] [place] [address] 94613- 3388 15 Jul, 2016 Decubitus ulcer of left thigh, stage 2 L89.892 [facility] [address], [place] [address]- 6977 14 Jul, 2016 [facility] [address] [place] [address] 01152- 3250 Jul, Cellulitis of other specified site L03.818 ; Illicit drug use F19.90 and Decubitus ulcer of left thigh, stage 2 L89.892 [facility] [address], [place] [address]- 0946 Jul, [facility] [address], [place] [address]- 6540 Jul, Cellulitis of right breast N61.0 [facility] [address], [place] [address]- 6383 Jun, [facility] [address], [place] [address]- 9974 Jun, [facility] [id number] [place] [address] 82571- 2450 Jun, Wheezing R06.2 and Arthralgia, unspecified joint M25.50 [facility] [address] [id number] [place] [address] 56809- 5862 May, [facility] [address] [id number] [place] [address] 76162- 2457 May, [facility] [id number] [place] [address] 13205- 5005 May, [place] [id number] [place] [address] 44909- 7011 05 May, 2016 Shortness of breath R06.02 [place] [address] [id number] [place] [address] 82518- 6220 02 May, 2016 Onychomycosis B35.1 and Fissure in skin of foot R23.4 [place] [id number] [place] [address] 25878- 1830 Apr, [facility] [id number] [place] [address] 20211 -9055 18 Apr, 2016 Dizziness R42 [place] [address] [id number] [place] [address] 38572- 8988 14 Apr, 2016 Shortness of breath R06.02 ; Essential hypertension I10 ; Dizziness R42 and On home oxygen therapy Z99.81 [place] [id number] [place] [address] 22159- 4959 Apr, [place] [id number] [place] [address] 07618- 7330 08 Apr, 2016 [place] [id number] [place] [address] 22255- 9683 07 Apr, 2016 [facility] [id number] [place] [address] 99480- 3459 04 Apr, 2016 [facility] [address] [place] [address]- 6675 Apr, [facility] [id number] [place] [address] 84766- 4343 Apr, [facility] [id number] [place] [address] 14658- 2394 Apr, [facility] [id number] [place] [address] 44657- 2851 Mar, Mild chronic obstructive pulmonary disease J44.9 [facility] [id number] [place] [address] 38029- 0343 Mar, [facility] [id number] [place] [address] 52338- 2882 Mar, Epigastric pain R10.13 ; Low back pain M54.5 ; Other chronic pain G89.29 and Breast cancer screening Z12.39 [facility] [address] [id number] [place] [address] 67599- 9416 Mar, [facility] [id number] [place] [address] 96123- 0927 Mar, [facility] [id number] [place] [address] 68739- 4920 Feb, [facility] [id number] [place] [address] 47408- 5551 Feb, [facility] [id number] [place] [address] 34763- 7691 Feb, Fissure in skin of foot R23.4 and Onychomycosis B35.1 [facility] [address] [address] [id number] [place] [address] 50536- 7919 Jan, 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 [facility] [id number] [place] [address] 86386- 8169 14 Dec, 2015 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 [facility] [id number] [place] [address] 61763- 4633 Dec, Mild persistent asthma without complication J45.30 ; Dysthymic disorder F34.1 and Upper respiratory tract infection, unspecified type J06.9 [place] [address] [address] [id number] [place] [address] 26881- 6145 Nov, 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 [place] [address] [address] [id number] [place] [address] 10194- 6736 October, 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 [place] [address] [id number] [place] [address] 01589- 2389 Sep, Panic disorder without agoraphobia F41.0 ; 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 and Dysthymic disorder F34.1 [place] [address] [address] [id number] [place] [address] 28018- 5550 Sep, Panic attacks F41.0 [place] [address] [place] [address] [id number] [place] [address] 28479- 6326 Sep, [place] [address] [address] [id number] [place] [address] 59892- 4536 Sep, Panic disorder without agoraphobia F41.0 ; Varicose veins of both lower extremities I83.93 and Fatigue R53.83 [place] [address] [place] [id number] [place] [address] 35191- 5595 Sep, Fatigue R53.83 [place] [address] [address] [id number] [place] [address] 04728- 2872 Sep, [place] [address] [address] [id number] [place] [address] 01422- 1249 Aug, [place] [address] [address] [id number] [place] [address] 21223- 7548 Aug, [place] [address] [address] [id number] [place] [address] 18873- 5073 Aug, 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 [place] [address] [place] [id number] [address]- 7853 Aug, Panic disorder without agoraphobia F41.0 ; 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 and Dysthymic disorder F34.1 [place] [address] [id number] [place] [address] 56752- 7062 Aug, Shortness of breath R06.02 ; Panic attacks F41.0 ; COPD ( chronic obstructive pulmonary disease) J44.9 ; Tobacco abuse Z72.0 ; Family history of diabetes mellitus Z83.3 and Weight gain R63.5 [place] [address] 75334- 3880 Aug, [place] [address] 32347- 6983 Jul, [place] [address] 11499- 2136 Jun, Onychomycosis B35.1 ; Neuropathy G62.9 and Impaired circulation I99.9 [place] [address] [place] [id number] [place] [address] 97259- 2917 Mar, Fissure in skin of foot R23.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 [place] [address] [place] [id number] [place] [address] 51326- 2490 Feb, Family history of coronary arteriosclerosis V17.3 [place] [address] [id number] [place] [address] 15288- 0491 15 Feb, 2015 Allergic rhinitis due to pollen 477.0 ; Unspecified breast screening V76.10 ; Anxiety 300.00 and Family history of coronary arteriosclerosis V17.3 [place] [address] 47467- 7191 Jan, [place] [address] 38693- 8441 Dec, [place] [address] [place] [address]- 9162 Dec, Onychomycosis 110.1 and Skin fissures 709.8 [facility] [address] [facility] [id number] [place] [address]- 9446 14 Sep, 2014 [facility] [address] [facility] [id number] [place] [address]- 4952 Sep, [facility] [address] [facility] [id number] [place] [address]- 1658 Aug, [facility] [address] [facility] [id number] [place] [address]- 0892 Aug, [facility] [address] [facility] [id number] [place] [address]- 0119 Jul, [facility] [address] [place] [id number] [place] [address]- 6905 Jul, [facility] [address] [address] [id number] [address]- 0114 Jun, [facility] [address] [facility] [id number] [place] [address]- 0410 Jun, [facility] [address] [place] [id number], [place] [address]- 9097 Jun, [facility] [address] [facility] [id number], [place] [address]- 7065 Jun, [facility] [address] [facility] [id number], [place] [address]- 2090 Jun, [facility] [address] [facility] [id number] [place] [address]- 9596 May, [facility] [address] [facility] [id number] 4125 May, [facility] [address] [facility] [id number] [place] 3851 May, [facility] [address] [facility] [id number] [place] [address]- 7595 May, [facility] [place] [facility] [address] [id number] [place] [address]- 4807 May, [facility] [place] [facility] [address] [id number] [place] [address]- 7081 May, [facility] [place] [facility] [address] [id number] [place] [address]- 7302 May, [facility] [place] [facility] [address] [id number] [place] [address]- 1155 May, [facility] [place] [facility] [address] [id number] [place] [address]- 1846 Apr, [facility] [place] [facility] [address] [id number] [place] [address]- 1767 Apr, [facility] [place] [facility] [address] [id number] [place] [address]- 7784 Apr, [facility] [place] [facility] [address] [id number] [place] [address]- 5401 Apr, [facility] [place] [facility] [address] [id number] [place] [address]- 5873 Apr, [facility] [place] [facility] [address] [facility] [id number] [place] [address]- 0285 Apr, [facility] [place] [facility] [address] [id number] [place] [address]- 8252 Apr, [facility] [place] [facility] [address] [id number], [place] [address]- 2748 Apr, [facility] [place] [facility] [address] [id number] [place] [address]- 6492 Apr, [facility] [place] [facility] [address] [id number] [place] [address]- 0221 Apr, [facility] [place] [facility] [address] [id number] [place] [address]- 5729 Mar, [facility] [place] [facility] [address] [id number] [place] [address]- 6174 Mar, [facility] [place] [facility] [address] [id number] [place] [address]- 0176 Mar, [facility] [place] [facility] [address] [id number] [place] [address]- 8007 Mar, [facility] [place] [facility] [address] [id number] [place] [address]- 1300 Mar, [facility] [place] [facility] [address] [id number] [place] [address]- 3030 Mar, [facility] [place] [facility] [address] [id number] [place] [address]- 3984 Mar, [facility] [place] [facility] [address] [id number] [place] [address]- 1940 Mar, [facility] [place] [facility] [address] [id number] [place] [address]- 9787 Mar, [facility] [place] [facility] [address] [id number] [place] [address]- 9888 Mar, [facility] [place] [facility] [address] [id number] [place] [address]- 7074 Mar, [facility] [place] [facility] [address] [id number] [place] [address]- 1598 Mar, [facility] [place] [facility] [address] [id number] [place] [address]- 8083 Mar, [facility] [place] [facility] [address] [id number] [place] [address]- 6054 Mar, [facility] [place] [facility] [address] [id number] [place] [address]- 7102 Mar, [facility] [place] [facility] [address] [id number] [place] [address]- 0315 Mar, [facility] [place] [facility] [address] [id number] [place] [address]- 0710 20 Mar, 2014 [facility] [place] [facility] [address] [id number] [place] [address]- 1701 16 Mar, 2014 [facility] [place] [facility] [address] [id number] [place] [address]- 9070 16 Mar, 2014 [facility] [place] [facility] [address] [id number] [place] [address]- 3165 15 Mar, 2014 [facility] [place] [facility] [address] [id number] [place] [address]- 4846 14 Mar, 2014 [facility] [place] [facility] [address] [id number] [place] [address]- 8568 14 Mar, 2014 [facility] [place] [facility] [address] [id number] [place] [address]- 7964 14 Mar, 2014 [facility] [place] [facility] [address] [id number] [place] [address]- 5030 14 Mar, 2014 [facility] [place] [facility] [address] [id number] [place] [address]- 7986 09 Mar, 2013 [facility] [place] [facility] [address] [id number] [place] [address]- 5308 09 Mar, 2014 [facility] [place] [facility] [address] [id number], [place] [address]- 6263 09 Mar, 2013 [facility] [place] [facility] [address] [id number], [place] [address]- 5364 09 Mar, 2014 [facility] [place] [facility] [address] [id number], [place] [address]- 1907 30 Feb, 2013 [facility] [place] [facility] [address] [id number] [place] [address]- 5910 30 Feb, 2013 [facility] [place] [facility] [address] [id number] [place] [address]- 8351 30 Feb, 2013 [facility] [place] [facility] [address] [id number] [place] [address]- 3617 30 Feb, 2013 [facility] [place] [facility] [address] [id number] [place] [address]- 7276 Feb, 2013 [facility] [place] [facility] [address] [id number] [place] [address]- 9608 Feb, 2013 [facility] [place] [facility] [address] [id number] [place] [address]- 2546 Feb, 2013 [facility] [place] [facility] [address] [id number] [place] [address]- 0063 Feb, 2013 [facility] [place] [facility] [address] [id number] [place] [address]- 3169 Feb, 2013 [facility] [place] [facility] [address] [id number] [place] [address]- 0047 Feb, 2013 [facility] [place] [facility] [address] [id number] [place] [address]- 9238 Feb, 2013 [facility] [place] [facility] [address] [id number] [place] [address]- 3334 Feb, 2013 [facility] [place] [facility] [address] [id number] [place] [address]- 5389 Jan, [facility] [place] [facility] [address] [id number] [place] [address]- 4796 Jan, [facility] [place] [facility] [address] [id number] [place] [address]- 9195 Jan, [facility] [place] [facility] [address] [id number] [place] [address]- 4261 Jan, [facility] [place] [facility] [address] [id number] [place] [address] Jan, [facility] [place] [facility] [address] [id number] [place] [address] Jan, [facility] [place] [facility] [address] [id number] [place] [address] Jan, [facility] [place] [facility] [address] [id number] [place] [address] Jan, [facility] [place] [facility] [address] [id number] [place] [address] Jan, [facility] [place] [facility] [address] [id number] [place] [address] Jan, [facility] [place] [facility] [address] [id number] [place] [address] Jan, [facility] [place] [facility] [address] [id number] [place] [address] 94[address] Jan, [facility] [place] [facility] [address] [id number] [place] [address] Jan, [facility] [place] [facility] [address] [id number] [place] [address] Dec, [facility] [place] [facility] [address] [id number] [place] [address] Dec, [facility] [place] [facility] [address] [id number] [place] [address] Dec, [facility] [place] [facility] [address] [id number] [place] [address]- [address] Dec, [facility] [place] [facility] [address] [id number] [place] [address] Dec, [facility] [place] [facility] [address] [id number] [place] [address]- [address] Dec, [facility] [place] [facility] [address] [id number] [place] [address]- [address] Dec, [facility] [place] [facility] [address] [id number] [place] [address]- [address] Dec, [facility] [place] [facility] [address] [id number] [place] [address]- [address] Dec, [facility] [place] [facility] [address] [id number] [place] [address]- [address] Dec, [facility] [place] [facility] [address] [id number] [place] [address]- [address] Dec, 2013 [facility] [place] [facility] [address] [id number] [place] [address]- [address] Dec, 2013 [facility] [place] [facility] [address] [id number] [place] [address]- [address] Dec, 2013 [facility] [place] [facility] [address] [id number] [place] [address]- [address] Dec, 2013 [facility] [place] [facility] [address] [id number] [place] [address]- [address] Dec, 2013 [facility] [place] [facility] [address] [id number] [place] [address]- [address] Dec, 2013 [facility] [place] [facility] [address] [id number] [place] [address]- [address] Dec, [facility] [place] [facility] [address] [id number] [place] [address] Dec, [facility] [place] [facility] [address] [id number] [place] [address] Nov, [facility] [place] [facility] [address] [id number] [place] [address]- [address] Nov, [facility] [place] [facility] [address] [id number] [place] [address]- [address] Nov, [facility] [place] [facility] [address] [id number] [place] [address]- [address] Nov, [facility] [place] [facility] [address] [id number] [place] [address] Nov, [facility] [place] [facility] [address] [id number] [place] [address]- [address] Nov, [facility] [place] [facility] [address] [id number] [place] [address]- [address] Nov, [facility] [place] [facility] [address] [id number] [place] [address] Nov, [facility] [place] [facility] [address] [id number] [place] [address] Nov, [facility] [place] [facility] [address] [id number] [place] [address]- [address] Nov, [facility] [place] [facility] [address] [id number] [place] [address]- [address] Nov, [facility] [place] [facility] [address] [id number] [place] [address] Nov, [facility] [place] [facility] [address] [address] [id number] [place] [address] Nov, [facility] [place] [facility] [address] [id number] [place] [address] Nov, [facility] [place] [facility] [address] [id number] [place] [address] Nov, [facility] [place] [facility] [address] [id number] [place] [address] Nov, [facility] [place] [facility] [address] [id number] [place] [address]796 Nov, [facility] [place] [facility] [address] [id number] [place] [address] 2408 Nov, [facility] [place] [facility] [address] [id number] [place] [address] 8877 Nov, [facility] [place] [facility] [address] [id number] [place] [address] 8948 Nov, [facility] [place] [facility] [address] [id number] [place] [address] 9245 October, [facility] [place] [facility] [address] [id number] [place] [address]691 October, [facility] [place] [facility] [address] [id number] [place] [address]- 8843 October, [facility] [place] [facility] [address] [id number] [place] [address] 3167 October, [facility] [place] [facility] [address] [id number] [place] [address]- 2480 Sep, [facility] [place] [facility] [address] [id number] [place] [address]- 9157 Sep, [facility] [place] [facility] [address] [id number] [place] [address]- 9275 Sep, [facility] [place] [facility] [address] [id number] [place] [address]- 1056 Sep, [facility] [place] [facility] [address] [id number] [place] [address]- 8872 Sep, [facility] [place] [facility] [address] [id number] [place] [address]- 4826 Sep, [facility] [place] [facility] [address] [id number] [place] [address]- 3187 Sep, [facility] [place] [facility] [address] [id number] [place] [address]- 2214 Sep, [facility] [place] [facility] [address] [id number] [place] [address] 1901 Sep, [facility] [place] [facility] [address] [id number] [place] [address] 8810 Aug, [facility] [place] [facility] [address] [id number] [place] [address] 1628 Aug, [facility] [place] [facility] [address] [id number] [place] [address] 1200 Aug, [facility] [place] [facility] [address] [id number] [place] [address]- 7827 Aug, [facility] [place] [facility] [address] [id number] [place] [address]- 9502 Aug, [facility] [place] [facility] [address] [id number] [place] [address]- 6928 Aug, [facility] [place] [facility] [address] [id number] [place] [address]- 5916 07 Aug, 2013 [facility] [place] [facility] [address] [id number] [place] [address]- 6893 Aug, [facility] [place] [facility] [address] [id number] [place] [address] 4388 Jul, [facility] [place] [facility] [address] [id number] [place] [address]- 3236 Jul, [facility] [place] [facility] [address] [id number] [place] [address]- 6948 Jun, [facility] [place] [facility] [address] [id number] [place] [address]- 6916 Jun, [facility] [place] [facility] [address] [id number] [place] [address]- 9470 Jun, [facility] [place] [facility] [address] [id number] [place] [address]- 5037 Jun, [facility] [place] [facility] [address] [id number] [place] [address]- 5102 Jun, [facility] [place] [facility] [address] [id number] [place] [address]- 6955 Jun, [facility] [place] [facility] [address] [id number] [place] [address]- 3333 Jun, [facility] [place] [facility] [address] [id number] [place] [address]- 3416 Jun, [facility] [place] [facility] [address] [id number] [place] [address]- 9156 Jun, [facility] [place] [facility] [address] [id number] [place] [address] 1988 Jun, [facility] [place] [facility] [address] [id number] [place] [address]- 6[address] Jun, [facility] [place] [facility] [address] [id number] [place] [address]- 6280 Jun, [facility] [place] [facility] [address] [id number] [place] [address]- 8124 May, [facility] [address] [id number] [place] [address]- 1227 May, [facility] [address] [id number] [place] [address]- 3399 May, [facility] [address] [id number] [place] [address]- 7841 May, [facility] [address] [id number] [place] [address] May, [facility] [address] [id number] [place] [address] May[facility] [address] [id number] [place] [address] May, [facility] [address] [id number] [place] [address]- 6485 May, [facility] [address] [id number] [place] [address]- 4263 May, [facility] [address] [id number] [place] [address]- 9208 May, [facility] [address] [id number] [place] [address]- 7164 16 May, 2013 [facility] [place] [facility] [address] [id number] [place] [address]- 7316 May, [facility] [place] [facility] [address] [id number] [place] [address]- 8768 May, [facility] [place] [facility] [address] [id number] [place] [address]- 5165 Apr, [facility] [place] [facility] [address] [id number] [place] [address]- 5785 29 Apr, 2013 [facility] [place] [facility] [address] [id number] [place] [address]- 4176 Mar, [facility] [place] [facility] [address] [id number] [place] [address]- 0766 Mar, [facility] [place] [facility] [address] [id number] [place] [address]- 2261 Feb, [facility] [place] [facility] [address] [id number] [place] [address] Feb, [facility] [place] [facility] [address] [id number] [place] [address]- 7393 Feb, [facility] [place] [facility] [address] [id number] [place] [address]- 4853 Feb, [facility] [place] [facility] [address] [id number] [place] [address]- 3729 Jan, [facility] [place] [facility] [address] [id number] [place] [address]- 3463 Jan, [facility] [place] [facility] [address] [id number] [place] [address]- 4820 Jan, [facility] [place] [facility] [address] [id number] [place] [address]- 1387 Jan, [facility] [place] [facility] [address] [id number] [place] [address]- 0227 Jan, [facility] [place] [facility] [address] [id number] [place] [address]- 1524 Jan, [facility] [place] [facility] [address] [id number] [place] [address]- 3352 Dec, [facility] [place] [facility] [address] [id number] [place] [address]- 8704 Dec, [facility] [place] [facility] [address] [id number] [place] [address]- 0594 Dec, [facility] [place] [facility] [address] [id number] [place] [address]- 3861 Dec, [facility] [place] [facility] [address] [id number] [place] [address]- 3091 Nov, [facility] [address] [id number] [place] [address]- 6564 October, [facility] [address] [id number] [place] [address]- 8306 October, [facility] [address] [id number] [place] [address]- 1540 October, [facility] [address] [id number] [place] [address]- 8857 Sep, [facility] [address] [id number] [place] [address]- 7096 Sep, [facility] [address] [id number] [place] [address]- 9792 Jun, [facility] [address] [id number] [place] [address]- 9837 Jun, [facility] [address] [id number] [place] [address]- 4703 Jun, [facility] [address] [id number] [place] [address]- 9147 Apr, [facility] [address] [id number] [place] [address]- 4919 Apr, [facility] [address] [id number] [place] [address]- 5417 Apr, [facility] [address] [id number] [place] [address]- 3760 Apr, [facility] [place] [facility] [address] [id number] [place] [address]- 1542 Mar, [facility] [place] [facility] [address] [id number] [place] [address]- 8836 Mar, [facility] [address] [id number] [place] [address]- 2477 Mar, [facility] [place] [facility] [address] [id number] [place] [address]- 2520 Mar, [facility] [place] [facility] [address] [id number] [place] [address]- 2589 29 Feb, 2012 [facility] [place] [facility] [address] [id number] [place] [address]- 5941 27 Feb, 2012 [facility] [place] [facility] [address] [id number] [place] [address]- 1986 20 Feb, 2012 [facility] [place] [facility] [address] [id number] [place] [address]- 9506 Jan, [facility] [place] [facility] [address] [id number] [place] [address]- 8321 Jan, [facility] [place] [facility] [address] [id number] [place] [address]- 0695 Jan, [facility] [place] [facility] [address] [id number] [place] [address]- 4949 Jan, [facility] [place] [facility] [address] [id number] [place] [address]- 5647 Dec, [facility] [place] [facility] [address] [id number] [place] [address]- 2155 Dec, [facility] [place] [facility] [address] [id number] [place] [address]- 0583 Nov, [facility] [place] [facility] [address] [id number], [place] [address]- 6777 Nov, [facility] [place] [facility] [address] [id number] [place] [address]- 7849 October, [facility] [place] [facility] [address] [id number] [place] [address] October, [facility] [place] [facility] [address] [id number] [place] [address]- 5108 October, [facility] [place] [facility] [address] [id number], [place] [address]- [address]307 09 Sep, 2011 [facility] [address] [id number] [place] [address]- 5626 Sep, [facility] [place] [facility] [address] [facility] [id number] [place] [address]- 1796 Sep, [facility] [id number] [place] [address]- 0266 27 Aug, 2011 [facility] [place] [facility] [address] [facility] [id number] [place] [address]- 6674 26 Aug, 2011 [facility] [address] [id number] [place] [address]- 1096 15 Aug, 2011 [facility] [place] [facility] [address] [facility] [id number] [place] [address]- 9078 15 Aug, 2011 [facility] [id number] [place] [address]- 2659 Aug, [facility] [place] [facility] [address] [id number] [place] [address]- 4976 23 Jul, 2011 [facility] [id number] [place] [address]- 3537 16 Jul, 2011 [facility] [id number] [place] [address]- 4453 13 Jul, 2011 [facility] [place] [facility] [id number] [place] [address]- 3646 Jul, [facility] [place] [facility] [address] [id number] [address]- 9516 07 Jul, 2011 [facility] [place] [facility] [address] [facility] [id number] [place] [address]- 5081 06 Jul, 2011 [facility] [place] [facility] [address] [facility] [id number] [place] [address]- 6326 03 Jul, 2011 [facility] [place] [facility] [id number] [place] [address]- 7360 Jul, [facility] [place] [facility] [address] [id number] [place] [address]- 4532 Jun, [facility] [place] [facility] [address] [id number] [place] [address]- 3746 Jun, [facility] [place] [facility] [address] [id number] [place] [address]- 8276 May, [facility] [place] [facility] [address] [id number] [place] [address]- 4516 May, [facility] [place] [facility] [address] [id number] [place] [address]- 6465 May, [facility] [place] [facility] [address] [id number] [place] [address]- 5616 May, [facility] [place] [facility] [address] [id number] [place] [address]- 8136 Apr, [facility] [place] [facility] [address] [id number] [place] [address]- 6952 Apr, [facility] [place] [facility] [address] [id number] [place] [address]- 2605 Apr, [facility] [place] [facility] [address] [facility] [id number], [place] [address]- 4419 Mar, [facility] [place] [facility] [address] [id number], [place] [address]- 6396 Mar, [facility] [place] [facility] [address] [id number], [place] [address]- 3194 Mar, [facility] [place] [facility] [address] [id number], [place] [address]- 7045 Mar, [facility] [place] [facility] [address] [id number], [place] [address]- 9726 Dec, [facility] [place] [facility] [address] [facility] [id number], [place] [address]- 0806 October, [facility] [place] [facility] [address] [id number], [place] [address]- 9724 May, [facility] [address]005[address], [place] [address]- 1611 May, [facility] [id number] [address]194 May, [facility] [id number] 7367 May, [facility] [id number] [address] Mar, [facility] [id number] [place] [address]- 7147 Mar, [facility] [id number] 7316 May, [facility] [id number], [place] [address]- 5068 May, [facility] [id number], [place] [address]- 2921 May, [facility] [id number], [place] [address]- 8106 May, [facility] [address]00565[address], [place] [address]- 6390 Apr, [facility] [address]00565[address], [place] [address]- 8446 Apr, [facility] [id number], [place] [address]- 8537 October, IMMUNIZATIONS No Known Immunizations SOCIAL HISTORY Never Assessed REASON FOR VISIT Other PLAN OF CARE VITAL SIGNS MEDICATIONS Unknown [...]
--- OUTSIDE RECORDS SUMMARY | 2018-03-17 11:14 | XMS REPORT ---
Author Author IVAN HINOJOSA Organization [facility] Address [address] [place] [address] Care Team Providers Care Grain Unloader Name Role Phone CHEYANNE HINOJOSAIN Unavailable PROBLEMS Type Condition ICD9-CM Code RAU77-RH Code Onset Dates Condition Status SNOMED Code Problem Other chronic pain G89.29 Active 90000088 Problem On home oxygen therapy Z99.81 Active 614402551345 Problem Mild chronic obstructive pulmonary disease J44.9 Active 233448217 Problem COPD (chronic obstructive pulmonary disease) with chronic bronchitis J44.9 Active 347216996 Problem History of illicit drug use Z87.898 Active 349303675 Problem COPD exacerbation J44.1 Active 377150441 Problem Neuropathy G62.9 Active 800856175 Problem Essential hypertension I10 Active 28335780 Problem 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 Active 93138052 Problem Major depressive disorder, recurrent episode, moderate F33.1 Active 100329562 Problem Impaired circulation I99.9 Active 97272128 Problem 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 Active 19403684 Problem Snoring R06.83 Active 04551112 Problem MRSA (methicillin resistant staph aureus) culture positive Z22.322 Active 653003232 Problem Fatigue R53.83 Active 98796346 Problem Varicose veins of both lower extremities I83.93 Active 62722527 Problem Dysthymic disorder F34.1 Active 51317183 Problem Upper respiratory tract infection, unspecified type J06.9 Active 66792278 Problem Panic disorder without agoraphobia F41.0 Active 73014520 Problem Mild persistent asthma without complication J45.30 Active 804143502 ALLERGIES Substance Reaction Event Type Date Status Sulfamethoxazole-Trimethoprim Unknown Drug Allergy Nov, Active Codeine Phosphate swelling Drug Allergy Nov, Active ENCOUNTERS Encounter Location Date Diagnosis [facility] [address] [facility] [id number] [address] Feb, [facility] [id number] [place] [address] 65634- 9727 Feb, [facility] [address] [address]- 7016 Jan, [place] [id number] [place] [address] 11267- 3799 Jan, Abrasion of right elbow, initial encounter S50.311A ; Abrasion, right knee, initial encounter S80.211A and Sprain of other ligament of right ankle, initial encounter S93.491A [facility] [id number] [place] [address] 49838- 1218 Jan, [facility] [id number] [place] [address] 19382 -8950 Jan, Injury of left ankle, initial encounter S99.912A ; Fall down stairs, initial encounter W10.8XXA and BMI 45.0-49.9, adult Z68.42 [place] [id number] [place] [address] 42556- 9911 Jan, COPD exacerbation J44.1 [place] [address] 12853- 8891 Jan, Dysfunction of both eustachian 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 [place] [id number] [place] [address] 69154- 5011 Jan, Bronchitis J40 and Acute suppurative otitis media of left ear without spontaneous rupture of tympanic membrane, recurrence not specified H66.002 [place] [id number] [place] [address] 75316- 2412 Jan, [place] [address] 24025- 2571 Jan, Bronchitis J40 and BMI 40.0-44.9, adult Z68.41 [place] [address] 45883- 7227 Jan, [place] [address] [address] 2714 Dec, Gastric pain R10.9 [place] [id number] [place] [address] 18293- 0982 Dec, [place] [id number] [place] [address] 27277- 3345 Dec, History of illicit drug use Z87.898 ; Neuropathy G62.9 ; COPD (chronic obstructive pulmonary disease) with chronic bronchitis J44.9 and Acute pain of right knee M25.561 [place] [id number] [place] [address] 74979- 9955 Nov, [place] [id number] [place] [address] 15528- 4048 Nov, Onychomycosis B35.1 and Contusion of left foot, subsequent encounter S90.32XD [facility] [id number] [place] [address] 54791- 0469 Nov, COPD exacerbation J44.1 [place] [id number] [place] [address] 04698- 1830 Sep, [place] [id number] [place] [address] 45826- 5975 Sep, Dysthymic disorder F34.1 ; Tobacco abuse Z72.0 ; Pain in right knee M25.561 ; Pain in left knee M25.562 ; Other chronic pain G89.29 and BMI 40.0-44.9, adult Z68.41 [place] [address] [address] 6056 Aug, Major depressive disorder, recurrent episode, moderate F33.1 and 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 [place] [id number] [place] [address] 98252- 1224 Aug, Dysthymic disorder F34.1 ; Non-pressure chronic ulcer of left thigh, unspecified ulcer stage L97.129 ; Tobacco abuse Z72.0 ; Mild chronic obstructive pulmonary disease J44.9 and Forgetfulness R68.89 [place] [address] 23343- 6580 Aug, Onychomycosis B35.1 ; Fissure in skin of foot R23.4 and Foot callus L84 [facility] [address] [address] -0922 Jul, Right medial knee pain M25.561 ; Upper respiratory tract infection, unspecified type J06.9 and BMI 40.0-44.9, adult Z68.41 [facility] [address] [address] -[address] Jul, Nausea and vomiting, intractability of vomiting not specified, unspecified vomiting type R11.2 ; Left ear pain H92.02 and Gastric pain R10.9 [place] [address] 57788- 5530 Apr, Encounter for immunization Z23 [place] [address] 51716- 2307 Apr, Onychomycosis B35.1 ; Xerosis of skin L85.3 ; Neuropathy G62.9 and 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 [place] [address] 55667- 7815 Jan, Onychomycosis B35.1 and Neuropathy G62.9 [place] [address] 93548- 3029 Dec, [place] [address] 79340- 0957 Dec, [place] [address] 92992- 4354 Nov, [place] [address] 34468- 3229 Aug, [facility] [address] [address]- 7001 Aug, [facility] [address] [place] [address] 44786- 9614 Jul, [facility] [address] [address]- 6380 Jul, [facility] [address] [place] [address] 29048- 7391 Jul, Decubitus ulcer of left thigh, stage 2 L89.892 [facility] [address] [place] [address] 10849- 9216 17 Jul, 2016 Decubitus ulcer of left thigh, stage 2 L89.892 [facility] [address] [place] [address] 99010- 2276 17 Jul, 2016 [facility] [address] [place] [address] 58985- 5033 15 Jul, 2016 Decubitus ulcer of left thigh, stage 2 L89.892 [facility] [address] [place] [address] 14193- 5279 14 Jul, 2016 [facility] [address] [address]- 7606 13 Jul, 2016 Cellulitis of other specified site L03.818 ; Illicit drug use F19.90 and Decubitus ulcer of left thigh, stage 2 L89.892 [facility] [address] [address]- 9122 Jul, [facility] [address] [place] [address] 53358- 4383 06 Jul, 2016 Cellulitis of right breast N61.0 [facility] [address] [address]- 5066 Jun, [facility] [id number] [place] [address] 83938- 6148 Jun, [facility] [id number] [place] [address] 75626- 1421 Jun, Wheezing R06.2 and Arthralgia, unspecified joint M25.50 [facility] [id number] [place] [address] 04785- 4886 May, [facility] [address] 55841- 1437 May, [facility] [id number] [place] [address] 64157- 7260 May, [facility] [address] 04914- 1203 05 May, 2016 Shortness of breath R06.02 [facility] [id number] [place] [address] 05007- 7578 02 May, 2016 Onychomycosis B35.1 and Fissure in skin of foot R23.4 [facility] [id number] [place] [address] 12215- 4024 28 Apr, 2016 [facility] [id number] [place] [address] 38546 -4798 18 Apr, 2016 Dizziness R42 [facility] [id number] [place] [address] 72188- 5152 14 Apr, 2016 Shortness of breath R06.02 ; Essential hypertension I10 ; Dizziness R42 and On home oxygen therapy Z99.81 [facility] [id number] [place] [address] 45830- 4108 10 Apr, 2016 [facility] [address] 20677- 9278 08 Apr, 2016 [facility] [id number] [place] [address] 27112- 6287 07 Apr, 2016 [facility] [address] 32781- 1390 Apr, [facility] [address] [address]- 9695 Apr, [facility] [address] [place] [address] 49224- 1130 Apr, [facility] [id number] [place] [address] 27994- 1669 Apr, [facility] [id number] [place] [address] 62322- 2721 Mar, Mild chronic obstructive pulmonary disease J44.9 [facility] [id number] [place] [address] 21240- 3977 Mar, [facility] [id number] [place] [address] 96473- 1973 Mar, Epigastric pain R10.13 ; Low back pain M54.5 ; Other chronic pain G89.29 and Breast cancer screening Z12.39 [facility] [address] [address]- 5121 Mar, [facility] [id number] [place] [address] 11941- 7258 Mar, [facility] [address] [address]- 1825 Feb, [facility] [address] [place] [address] 76454- 3031 Feb, [facility] [address] [place] [address] 13490- 0300 Feb, Fissure in skin of foot R23.4 and Onychomycosis B35.1 [facility] [address] [address]- 6627 Jan, 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 [facility] [address] [address]- 5089 Dec, 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 [place] [address] [place] [address] 38398- 9220 Dec, Mild persistent asthma without complication J45.30 ; Dysthymic disorder F34.1 and Upper respiratory tract infection, unspecified type J06.9 [place] [id number] [place] [address] 99137- 7694 Nov, 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 [place] [id number] [place] [address] 67593- 8078 October, 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 [place] [id number] [place] [address] 53899- 8569 Sep, Panic disorder without agoraphobia F41.0 ; 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 and Dysthymic disorder F34.1 [place] [id number] [place] [address] 05703- 9724 Sep, Panic attacks F41.0 [place] [id number] [place] [address] 82500- 9427 Sep, [place] [id number] [place] [address] 82336- 0066 Sep, Panic disorder without agoraphobia F41.0 ; Varicose veins of both lower extremities I83.93 and Fatigue R53.83 [place] [id number] [place] [address] 40789- 7280 Sep, Fatigue R53.83 [place] [id number] [place] [address] 75554- 2693 Sep, [place] [id number] [place] [address] 27349- 4820 Aug, [facility] [id number] [place] [address] 54306- 1706 Aug, [place] [id number] [place] [address] 91709- 2542 Aug, 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 [place] [id number] [place] [address] 16377- 7449 Aug, Panic disorder without agoraphobia F41.0 ; 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 and Dysthymic disorder F34.1 [place] [id number] [place] [address] 33418- 7485 Aug, Shortness of breath R06.02 ; Panic attacks F41.0 ; COPD ( chronic obstructive pulmonary disease) J44.9 ; Tobacco abuse Z72.0 ; Family history of diabetes mellitus Z83.3 and Weight gain R63.5 [place] [address] 36799- 7560 Aug, [place] [address] 96966- 8938 Jul, [place] [address] 81109- 1498 Jun, Onychomycosis B35.1 ; Neuropathy G62.9 and Impaired circulation I99.9 [place] [address] 34412- 4411 Mar, Fissure in skin of foot R23.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 [place] [id number] [place] [address] 78983- 2325 Feb, Family history of coronary arteriosclerosis V17.3 [place] [id number] [place] [address] 50872- 8585 15 Feb, 2015 Allergic rhinitis due to pollen 477.0 ; Unspecified breast screening V76.10 ; Anxiety 300.00 and Family history of coronary arteriosclerosis V17.3 [place] [id number] [place] [address] 17063- 3192 Jan, [place] [address] 69630- 2546 Dec, [facility] [address] [id number] [place] 3322 Dec, Onychomycosis 110.1 and Skin fissures 709.8 [facility] [address] [id number] [place] [address]- 8716 14 Sep, 2014 [facility] [address] [id number] [place] [address]- 3650 Sep, [facility] [address] [id number] [place] 8637 Aug, [facility] [address] [id number] [place] [address]- 7179 Aug, [facility] [address] [facility] [id number] [place] 7615 Jul, [facility] [address] [facility] [id number] [place] [address]- 9337 Jul, [facility] [address] [facility] [id number] [place] [address]- 1154 Jun, [facility] [address] [facility] [id number] [place] [address]- 2723 Jun, [facility] [address] [facility] [id number] [place] [address]- 6921 Jun, [facility] [address] [facility] [id number] [place] [address]- 6566 Jun, [facility] [address] [facility] [id number] [place] [address]- 5890 Jun, [facility] [address] [facility] [id number] [place] [address]- 3012 May, [facility] [address] [id number] [place] 2071 May, [facility] [address] [facility] [id number] [place] [address]- 8894 May, [facility] [place] [facility] [address] [id number] [place] [address]- 6954 May, [facility] [place] [facility] [address] [id number] [place] [address]- 7471 May, [facility] [place] [facility] [address] [id number] [place] [address]- 6718 May, [facility] [place] [facility] [address] [id number] [place] [address]- 8209 May, [facility] [place] [facility] [address] [id number] [place] [address]- 3507 May, [facility] [place] [facility] [address] [id number] [place] [address]- 6828 Apr, [facility] [place] [facility] [address] [id number] [place] [address]- 0520 Apr, [facility] [place] [facility] [address] [id number] [place] [address]- 6070 Apr, [facility] [place] [facility] [address] [id number] [place] [address]- 3461 Apr, [facility] [place] [facility] [address] [id number] [place] [address]- 7491 Apr, [facility] [place] [facility] [address] [id number] [address]- 9072 Apr, [facility] [place] [facility] [address] [id number] [address]- 6689 Apr, [facility] [place] [facility] [address] [id number] [place] [address]- 2737 Apr, [facility] [place] [facility] [address] [id number] [address]- 8438 Apr, [facility] [place] [facility] [address] [id number] [address]- 2909 Apr, [facility] [place] [facility] [address] [id number] [place] [address]- 1154 Mar, [facility] [place] [facility] [address] [id number] [place] [address]- 2707 Mar, [facility] [place] [facility] [address] [id number] [place] [address]- 1258 Mar, [facility] [place] [facility] [address] [id number] [place] [address]- 0851 Mar, [facility] [place] [facility] [address] [id number] [place] [address]- 5119 Mar, [facility] [place] [facility] [address] [id number] [place] [address]- 9547 Mar, [facility] [place] [facility] [address] [id number] [place] [address]- 4330 Mar, [facility] [place] [facility] [address] [id number] [place] [address]- 6063 Mar, [facility] [place] [facility] [address] [id number] [place] [address]- 8877 24 Mar, 2014 [facility] [place] [facility] [address] [id number] [place] [address]- 3876 Mar, [facility] [place] [facility] [address] [id number] [place] [address]- 9358 Mar, [facility] [place] [facility] [address] [id number] [place] [address]- 8377 Mar, [facility] [place] [facility] [address] [id number] [place] [address]- 5253 Mar, [facility] [place] [facility] [address] [id number] [place] [address]- 2307 Mar, [facility] [place] [facility] [address] [id number] [place] [address]- 9491 Mar, [facility] [place] [facility] [address] [id number] [place] [address]- 1133 Mar, [facility] [place] [facility] [address] [id number] [place] [address]- 9444 20 Mar, 2013 [facility] [place] [facility] [address] [id number] [place] [address]- 8956 16 Mar, 2013 [facility] [place] [facility] [address] [id number] [place] [address]- 5092 16 Mar, 2013 [facility] [place] [facility] [address] [id number] [place] [address]- 5406 15 Mar, 2013 [facility] [place] [facility] [address] [id number] [place] [address]- 1620 14 Mar, 2014 [facility] [place] [facility] [address] [id number] [place] [address]- 0161 14 Mar, 2013 [facility] [place] [facility] [address] [id number] [place] [address]- 4436 14 Mar, 2013 [facility] [place] [facility] [address] [id number] [place] [address]- 7939 14 Mar, 2013 [facility] [place] [facility] [address] [id number] [place] [address]- 2636 09 Mar, 2014 [facility] [place] [facility] [address] [id number] [place] [address]- 4735 09 Mar, 2013 [facility] [place] [facility] [address] [id number] [place] [address]- 1720 Mar, [facility] [place] [facility] [address] [id number] [address]- 4928 Mar, 2013 [facility] [place] [facility] [address] [id number] [place] [address] 30 Feb, 2013 [facility] [place] [facility] [address] [id number] [place] [address] 30 Feb, 2013 [facility] [place] [facility] [address] [id number] [address] 30 Feb, 2013 [facility] [place] [facility] [address] [id number] [place] [address] 30 Feb, 2013 [facility] [place] [facility] [address] [id number] [place] [address] Feb, 2013 [facility] [place] [facility] [address] [id number] [place] [address] Feb, 2013 [facility] [place] [facility] [address] [id number] [place] [address] Feb, 2013 [facility] [place] [facility] [address] [id number] [place] [address] Feb, 2013 [facility] [place] [facility] [address] [id number] [place] [address] Feb, 2013 [facility] [place] [facility] [address] [id number] [place] [address] Feb, 2013 [facility] [place] [facility] [address] [id number] [place] [address] Feb, 2013 [facility] [place] [facility] [address] [id number] [place] [address] Feb, 2013 [facility] [place] [facility] [address] [id number] [place] [address] Jan, [facility] [place] [facility] [address] [id number] [place] [address] Jan, [facility] [place] [facility] [address] [id number] [place] [address] Jan, [facility] [place] [facility] [address] [id number] [place] [address] 2003 Jan, [facility] [place] [facility] [address] [id number] [place] [address] Jan, [facility] [place] [facility] [address] [id number] [place] [address] Jan, [facility] [place] [facility] [address] [id number] [place] [address] Jan, [facility] [place] [facility] [address] [id number] [place] [address] Jan, [facility] [place] [facility] [address] [id number] [place] [address] Jan, [facility] [place] [facility] [address] [id number] [place] [address] Jan, [facility] [place] [facility] [address] [id number] [place] [address]- [address] Jan, [facility] [place] [facility] [address] [id number] [place] [address]- [address] Jan, [facility] [place] [facility] [address] [id number] [place] [address] Jan, [facility] [place] [facility] [address] [id number] [place] [address] Dec, [facility] [place] [facility] [address] [id number] [place] [address] Dec, [facility] [place] [facility] [address] [id number] [place] [address] Dec, [facility] [place] [facility] [address] [id number] [place] [address] Dec, [facility] [place] [facility] [address] [id number] [place] [address] Dec, [facility] [place] [facility] [address] [id number] [place] [address] Dec, [facility] [place] [facility] [address] [id number] [place] [address] Dec, [facility] [place] [facility] [address] [id number] [place] [address] Dec, [facility] [place] [facility] [address] [id number] [place] [address] Dec, [facility] [place] [facility] [address] [id number] [place] [address] Dec, [facility] [place] [facility] [address] [id number] [place] [address] Dec, 2013 [facility] [place] [facility] [address] [id number] [place] [address] Dec, 2013 [facility] [place] [facility] [address] [id number] [place] [address]- [address] Dec, 2013 [facility] [place] [facility] [address] [id number] [place] [address] Dec, 2013 [facility] [place] [facility] [address] [id number] [place] [address] Dec, 2013 [facility] [place] [facility] [address] [id number] [place] [address] Dec, 2013 [facility] [facility] [address] [id number] [place] [address] Dec, [facility] [place] [facility] [address] [id number] [place] [address] Dec, [facility] [place] [facility] [address] [id number] [place] [address]1 Nov, [facility] [place] [facility] [address] [id number] [place] [address] 6285 Nov, [facility] [place] [facility] [address] [id number] [place] [address] 5167 Nov, [facility] [place] [facility] [address] [id number] [place] [address] 3017 Nov, [facility] [place] [facility] [address] [id number] [place] [address] 4422 Nov, [facility] [place] [facility] [address] [id number] [place] [address] 4866 Nov, [facility] [place] [facility] [address] [id number] [place] [address] 8519 Nov, [facility] [place] [facility] [address] [id number] [place] [address]327 Nov, [facility] [place] [facility] [address] [id number] [place] [address] 2676 Nov, [facility] [place] [facility] [address] [id number] [place] [address] 8150 Nov, [facility] [place] [facility] [address] [id number] [place] [address] 8017 Nov, [facility] [place] [facility] [address] [id number] [place] [address]- 6332 Nov, [facility] [place] [facility] [address] [id number] [place] [address]- 7955 Nov, [facility] [place] [facility] [address] [id number] [place] [address] 5002 Nov, [facility] [place] [facility] [address] [id number] [place] [address]- 8276 Nov, [facility] [place] [facility] [address] [id number] [place] [address]- 1587 Nov, [facility] [place] [facility] [address] [id number] [place] [address]- 2687 Nov, [facility] [place] [facility] [address] [id number] [place] [address]- 5098 Nov, [facility] [place] [facility] [address] [id number] [place] [address]- 0029 Nov, [facility] [place] [facility] [address] [id number] [place] [address] 6268 Nov, [facility] [place] [facility] [address] [id number] [place] [address] 8743 October, [facility] [place] [facility] [address] [id number] [place] [address]- 3119 October, [facility] [place] [facility] [address] [id number] [place] [address]- 9025 October, [facility] [place] [address] [id number] [place] [address]- 1609 October, [facility] [place] [facility] [address] [id number] [place] [address] 3196 Sep, [facility] [place] [facility] [address] [id number] [place] [address] 2820 Sep, [facility] [address] [id number] [place] [address] Sep, [facility] [place] [address] [id number] [place] [address]- 5689 Sep, [facility] [place] [facility] [address] [id number] [place] [address]- 2601 Sep, [facility] [place] [address] [id number] [place] [address]- 9641 Sep, [facility] [address] [id number] [place] [address]- 0661 Sep, [facility] [address] [id number] [place] [address] 8559 Sep, [facility] [address] [id number] [place] [address]- 4622 Sep, [facility] [address] [id number] [place] [address]- 6449 Aug, [facility] [address] [id number] [place] [address]- 9947 Aug, [facility] [address] [id number] [place] [address]- 4334 Aug, [facility] [address] [id number] [place] [address]- 9474 Aug, [facility] [address] [id number] [place] [address]- 0176 Aug, [facility] [address] [id number] [place] [address]- 0446 Aug, [facility] [address] [id number] [place] [address]- 0900 Aug, [facility] [address] [id number] [place] [address]- 3508 Aug, [facility] [address] [id number] [place] [address]- 0831 Jul, [facility] [address] [id number] [place] [address]- 8655 Jul, [facility] [address] [id number] [place] [address]- 1235 Jun, [facility] [address] [id number] [place] [address]- 0126 Jun, [facility] [address] [id number] [place] [address]- 7097 Jun, [facility] [address] [id number] [place] [address]- 0430 Jun, [facility] [address] [id number] [place] [address]- 8367 Jun, [facility] [address] [id number] [place] [address]- 4242 Jun, [facility] [address] [id number] [place] [address]- 7323 Jun, [facility] [address] [id number] [place] [address]- 6048 Jun, [facility] [address] [id number] [place] [address]- 8127 Jun, [facility] [address] [id number] [place] [address]- 9427 Jun, [facility] [address] [id number] [place] [address]- 2159 Jun, [facility] [address] [id number] [place] [address]- 3026 Jun, [facility] [address] [id number] [place] [address]- 1844 May, [facility] [address] [id number] [place] [address]- 7459 May, [facility] [address] [id number] [place] [address]- 6731 May, [facility] [address] [id number] [place] [address]- 9308 May, [facility] [address] [id number] [place] [address]- 7416 May, [facility] [address] [id number] [place] [address]- 8796 May, [facility] [address] [id number] [place] [address]- 1149 May, [facility] [address] [id number] [place] [address]- 8626 May, [facility] [address] [id number] [place] [address]- 8131 May, [facility] [address] [id number] [place] [address]- 4513 16 May, 2013 [facility] [address] [id number] [place] [address]- 1701 16 May, 2013 [facility] [address] [id number] [place] [address]- 7163 May, [facility] [address] [id number] [place] [address]- 1188 May, [facility] [address] [id number] [place] [address]- 2546 Apr, [facility] [address] [id number] [place] [address]- 2398 Apr, [facility] [address] [id number] [place] [address]- 4989 Mar, [facility] [address] [id number] [place] [address]- 6373 Mar, [facility] [address] [id number] [place] [address]- 6352 Feb, [facility] [address] [id number] [place] [address]- 8180 Feb, [facility] [address] [id number] [place] [address]- 2737 Feb, [facility] [address] [id number] [place] [address]- 5925 Feb, [facility] [address] [id number] [place] [address]- 6169 Jan, [facility] [address] [id number] [place] [address]- 2863 Jan, [facility] [address] [id number] [place] [address]- 5286 Jan, [facility] [address] [id number] [address]- 2527 Jan, [facility] [address] [id number] [place] [address]- 4226 Jan, [facility] [address] [id number] [place] [address]- 7797 Jan, [facility] [address] [id number] [place] [address]- 6362 Dec, [facility] [address] [id number] [place] [address]- 5784 Dec, [facility] [address] [id number] [place] [address]- 0000 Dec, [facility] [address] [id number] [place] [address]- 9283 Dec, [facility] [address] [id number] [place] [address]- 9431 Nov, [facility] [address] [id number] [place] [address]- 1160 October, [facility] [address] [facility] [id number] [place] [address]- 4192 October, [facility] [address] [id number] [place] [address]- 8422 October, [facility] [address] [id number] [place] [address]- 9750 Sep, [facility] [address] [id number] [place] [address]- 5837 Sep, [facility] [id number] [address]- 8717 Jun, [facility] [address] [id number] [place] [address]- 5543 Jun, [facility] [address] [id number] [address]- 4176 Jun, [facility] [address] [id number] [address]- 5218 Apr, [facility] [address] [id number] [place] [address]- 0609 Apr, [facility] [address] [id number] [place] [address]- 4950 Apr, [facility] [address] [id number] [place] [address]- 7287 Apr, [facility] [address] [facility] [id number] [place] [address]- 6199 Mar, [facility] [address] [id number] [address]- 7605 Mar, [facility] [address] [id number] [place] [address]- 4343 Mar, [facility] [address] [id number] [place] [address]- 3016 Mar, [facility] [address] [id number] [place] [address]- 0536 29 Feb, 2012 [facility] [address] [id number] [place] [address]- 8146 27 Feb, 2012 [facility] [address] [id number] [place] [address]- 1477 20 Feb, 2012 [facility] [address] [id number] [place] [address]- 0872 30 Jan, 2012 [facility] [address] [id number] [place] [address]- 8179 Jan, [facility] [address] [id number] [place] [address]- 4608 Jan, [facility] [address] [id number] [place] [address]- 3331 Jan, [facility] [address] [id number] [place] [address]- 3776 Dec, [facility] [address] [id number] [place] [address]- 0051 Dec, [facility] [address] [id number] [place] [address]- 8396 Nov, [facility] [place] [address] [id number] [place] [address]- 9678 Nov, [facility] [address] [id number] [place] [address]- 0934 October, [facility] [place] [facility] [address] [id number] [place] [address]- 1257 October, [facility] [facility] [address] [id number] [place] [address]- 3209 October, [facility] [address] [id number] [place] [address]- 0653 Sep, [facility] [place] [address] [id number] [place] [address]- 1236 Sep, [facility] [address] [facility] [id number] [place] [address]- 4046 Sep, [facility] [address] [id number] [place] [address]- 9457 27 Aug, 2011 [facility] [address] [id number] [place] [address]- 4550 26 Aug, 2011 [facility] [address] [facility] [id number] [place] [address]- 9410 15 Aug, 2011 [facility] [address] [facility] [id number] [place] [address]- 5279 Aug, [facility] [address] [facility] [id number] [place] [address]- 5077 Aug, [facility] [facility] [address] [facility] [id number] [place] [address]- 9099 Jul, [facility] [place] [facility] [address] [facility] [id number] [place] [address]- 1869 16 Jul, 2011 [facility] [facility] [address] [facility] [id number] [place] [address]- 3564 Jul, [facility] [place] [facility] [address] [facility] [id number] [place] [address]- 4243 Jul, [facility] [place] [facility] [address] [facility] [id number] [place] [address]- 6179 07 Jul, 2011 [facility] [place] [facility] [address] [facility] [id number] [place] [address]- 0840 06 Jul, 2011 [facility] [place] [facility] [address] [facility] [id number] [place] [address]- 3906 Jul, [facility] [place] [facility] [address] [id number] [place] [address]- 2121 Jul, [facility] [place] [facility] [address] [id number] [place] [address]- 0694 Jun, [facility] [place] [facility] [address] [id number] [place] [address]- 2546 Jun, [facility] [place] [facility] [address] [id number] [place] [address]- 7000 May, [facility] [place] [facility] [address] [id number] [place] [address]- 3268 May, [facility] [place] [facility] [address] [id number] [place] [address]- 9379 May, [facility] [place] [facility] [address] [id number] [place] [address]- 4442 May, [facility] [place] [facility] [address] [id number] [place] [address]- 2606 Apr, [facility] [place] [facility] [address] [id number] [place] [address]- 7765 Apr, [facility] [place] [facility] [address] [id number] [place] [address]- 3799 Apr, [facility] [facility] [address] [id number] [place] [address]- 0283 Mar, [facility] [place] [facility] [address] [id number] [place] [address]- 1462 Mar, [facility] [place] [facility] [address] [id number] [place] [address]- 0621 Mar, [facility] [place] [facility] [address] [id number] [place] [address]- 6765 Mar, [facility] [place] [facility] [address] [id number] [place] [address]- 1785 Dec, [facility] [place] [facility] [address] [id number] [place] [address]- 4905 October, [facility] [address] [id number] [address]- 2555 May, [facility] [id number] [address]- 3406 May, [facility] [id number] [address]- 0076 May, [facility] [id number] [place] [address] 04[address]- 4917 May, [facility] [id number] [place] [address]- 1404 Mar, [facility] [id number] [place] [address]- 1078 Mar, [facility] [id number] [address]- 1144 May, [facility] [id number] 8854 May, [facility] [id number] 2204 May, [facility] [id number] [address]- 6214 May, [facility] [id number] [address]- 4773 Apr, [facility] [address] [id number] [address]- 8640 Apr, [facility] [address] [id number] [address]- 2927 October, IMMUNIZATIONS No Known Immunizations SOCIAL HISTORY Never Assessed REASON FOR VISIT 3 MO F/U, left foot swelling all day along with pain-Debbi MOSS PLAN OF CARE Activity Details Follow Up 3 Months Reason: VITAL SIGNS Height 64 in 2017-11-23 Blood pressure systolic 122 mmHg 2017-11-23 Blood pressure diastolic 68 mmHg 2017-11-23 MEDICATIONS Medication Instructions Dosage Frequency Start Date End Date Duration Status Ranitidine HCl 150 MG Orally 2 times a day 1 tablet 12h Active Ventolin HFA 108 (90 Base) MCG/ACT Inhalation every 4 hrs 2 puffs as needed 4h 07 Dec, 2015 90 days Active Estradiol 0.5 MG 1 tablet Active Gabapentin 300 MG Orally Once a day 1 capsule at bedtime 24h Active Symbicort 160-4.5 MCG/ACT Inhalation Twice a day 2 puffs 12h 90 days Active Ropinirole HCl 0.5 MG Orally Once a day 1 tablet 1 to 3 hours before bedtime 24h Active Tramadol HCl 50 mg Orally 2 times a day 1 tablet as needed 12h Active Albuterol Sulfate (2.5 MG/3ML) 0.083% Inhalation every 6 hrs 3 ml as needed 6h Apr, Active Fluoxetine HCl 20 mg Orally Once a day 1 capsule in the morning 24h Aug 90 days Active Quinapril HCl 20 mg Orally Once a day 2 tablets 24h Active Meloxicam 7.5 MG Orally Once a day 1 tablet 24h Active HydrOXYzine HCl 50 mg Orally 2 times a day 1 tablet 12h Active PredniSONE 20 mg Orally Once a day 2 tablets 24h Nov, Nov, 05 days Active Oxygen ... 2L with nasal cannula Active Simvastatin 40 MG Orally Once a day 1 tablet in the evening 24h 30 Active Montelukast Sodium 10 MG Orally Once a day 1 tablet in the evening 24h 90 days Active Cyclobenzaprine HCl 10 MG Orally every 6 hrs 1 tablet as needed for spasms 6h Active Doxycycline Hyclate 100 mg Orally Twice a day 1 capsule 12h Nov, Nov, 10 day(s) Active Nebulizer - as directed for use with inhaled medications Mar, lifetime Active Toviaz 4 MG Orally Once a day 1 tablet 24h Active Nitrofurantoin Monohyd Macro 100 mg Orally Once a day 1 capsule with supper 24h Active RESULTS Name Result Date Reference Range Xray : Foot, Left 3 views (IN HOUSE) 2017-11-23 PROCEDURES Procedure Date Ordered Result Body Site DEBRIDE NAIL, 6 OR MORE November 23, 2017 X-RAY EXAM OF FOOT November 23, 2017 [facility] VISIT ESTABLISHED PATIENT November 23, 2017 INSTRUCTIONS MEDICATIONS ADMINISTERED No Known Medications [...]
--- OUTSIDE RECORDS SUMMARY | 2018-03-17 11:15 | XMS REPORT ---
Author Author THOMAS JENNINGS Organization [facility] Address [address] [place] [address] Care Team Providers Care Managed Care Provider Name Role Phone MICHAELA THOMAS Unavailable PROBLEMS Type Condition ICD9-CM Code KOI66-CY Code Onset Dates Condition Status SNOMED Code Problem Other chronic pain G89.29 Active 44777224 Problem On home oxygen therapy Z99.81 Active 520122525874 Problem Mild chronic obstructive pulmonary disease J44.9 Active 874893215 Problem COPD (chronic obstructive pulmonary disease) with chronic bronchitis J44.9 Active 044228898 Problem History of illicit drug use Z87.898 Active 365967345 Problem COPD exacerbation J44.1 Active 528385019 Problem Neuropathy G62.9 Active 976093714 Problem Essential hypertension I10 Active 47486123 Problem 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 Active 80359898 Problem Major depressive disorder, recurrent episode, moderate F33.1 Active 456066202 Problem Impaired circulation I99.9 Active 04690751 Problem 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 Active 35538586 Problem Snoring R06.83 Active 00692847 Problem MRSA (methicillin resistant staph aureus) culture positive Z22.322 Active 693635484 Problem Fatigue R53.83 Active 32703985 Problem Varicose veins of both lower extremities I83.93 Active 39944038 Problem Dysthymic disorder F34.1 Active 53236510 Problem Upper respiratory tract infection, unspecified type J06.9 Active 10586286 Problem Panic disorder without agoraphobia F41.0 Active 93342823 Problem Mild persistent asthma without complication J45.30 Active 202641729 ALLERGIES Substance Reaction Event Type Date Status Sulfamethoxazole-Trimethoprim Unknown Drug Allergy Nov, Active Codeine Phosphate swelling Drug Allergy Nov, Active ENCOUNTERS Encounter Location Date Diagnosis [facility] [address] [facility] [id number] [address] Feb, [facility] [id number] [place] [address] 80550- 1382 Feb, [facility] [address] [id number] [place] [address] 70799- 7326 Jan, [facility] [id number] [place] [address] 88568- 1668 Jan, Abrasion of right elbow, initial encounter S50.311A ; Abrasion, right knee, initial encounter S80.211A and Sprain of other ligament of right ankle, initial encounter S93.491A [facility] [id number] [place] [address] 26464- 0649 Jan, [facility] [id number] [place] [address] 80683 -4290 Jan, Injury of left ankle, initial encounter S99.912A ; Fall down stairs, initial encounter W10.8XXA and BMI 45.0-49.9, adult Z68.42 [place] [id number] [place] [address] 62335- 7165 Jan, COPD exacerbation J44.1 [facility] [address] [id number] [place] [address] 28283- 5297 Jan, Dysfunction of both eustachian 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 [facility] [address] [id number] [place] [address] 65127- 5927 Jan, Bronchitis J40 and Acute suppurative otitis media of left ear without spontaneous rupture of tympanic membrane, recurrence not specified H66.002 [facility] [id number] [place] [address] 39762- 5276 Jan, [place] [address] [address] [id number] [place] [address] 33417- 4570 Jan, Bronchitis J40 and BMI 40.0-44.9, adult Z68.41 [facility] [address] [place] [id number] [place] [address] 52231- 6388 Jan, [place] [id number] [place] [address] 05929- 4889 Dec, Gastric pain R10.9 [place] [address] [place] [id number] [place] [address] 52469- 6511 Dec, [place] [address] [address] [id number] [place] [address] 36215- 7899 Dec, History of illicit drug use Z87.898 ; Neuropathy G62.9 ; COPD (chronic obstructive pulmonary disease) with chronic bronchitis J44.9 and Acute pain of right knee M25.561 [facility] [address] [place] [id number] [place] [address] 12219- 6179 Nov, [facility] [address] [place] [id number] [place] [address] 50281- 4412 Nov, Onychomycosis B35.1 and Contusion of left foot, subsequent encounter S90.32XD [facility] [address] [id number] [place] [address] 98211- 7106 Nov, COPD exacerbation J44.1 [place] [address] [id number] [place] [address] 65288- 6489 Sep, [facility] [address] [id number] [place] [address] 68607- 8890 Sep, Dysthymic disorder F34.1 ; Tobacco abuse Z72.0 ; Pain in right knee M25.561 ; Pain in left knee M25.562 ; Other chronic pain G89.29 and BMI 40.0-44.9, adult Z68.41 [facility] [id number] [place] [address] 27710- 9568 Aug, Major depressive disorder, recurrent episode, moderate F33.1 and 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 [facility] [id number] [place] [address] 63707- 4108 Aug, Dysthymic disorder F34.1 ; Non-pressure chronic ulcer of left thigh, unspecified ulcer stage L97.129 ; Tobacco abuse Z72.0 ; Mild chronic obstructive pulmonary disease J44.9 and Forgetfulness R68.89 [facility] [address] [id number] [place] [address] 68277- 8341 Aug, Onychomycosis B35.1 ; Fissure in skin of foot R23.4 and Foot callus L84 [facility] [place] [id number] [place] [address] 66994 -8681 Jul, Right medial knee pain M25.561 ; Upper respiratory tract infection, unspecified type J06.9 and BMI 40.0-44.9, adult Z68.41 [facility] [address] 04142 -6012 Jul, Nausea and vomiting, intractability of vomiting not specified, unspecified vomiting type R11.2 ; Left ear pain H92.02 and Gastric pain R10.9 [place] [address] 42528- 6338 Apr, Encounter for immunization Z23 [facility] [address] [id number] [place] [address] 47621- 1955 Apr, Onychomycosis B35.1 ; Xerosis of skin L85.3 ; Neuropathy G62.9 and 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 [facility] [address] [id number] [place] [address] 16254- 4094 Jan, Onychomycosis B35.1 and Neuropathy G62.9 [place] [address] [id number] [place] [address] 65625- 5555 Dec, [facility] [address] 80970- 3010 Dec, [place] [address] [address] [id number] [place] [address] 81969- 5445 Nov, [place] [address] [id number] [place] [address] 59159- 1246 Aug, [facility] [address] [address] 0400 Aug, [facility] [address] [address]- 8086 Jul, [facility] [address] [address] 8026 Jul, [facility] [id number] [place] [address] 63793- 0642 Jul, Decubitus ulcer of left thigh, stage 2 L89.892 [facility] [address] [address]- 9166 17 Jul, 2016 Decubitus ulcer of left thigh, stage 2 L89.892 [facility] [address] [address]- 5613 17 Jul, 2016 [facility] [id number] [place] [address] 80681- 7785 15 Jul, 2016 Decubitus ulcer of left thigh, stage 2 L89.892 [facility] [address] [address]- 8908 14 Jul, 2016 [facility] [address] [address]- 2886 13 Jul, 2016 Cellulitis of other specified site L03.818 ; Illicit drug use F19.90 and Decubitus ulcer of left thigh, stage 2 L89.892 [facility] [address] [address]- 1725 Jul, [facility] [address] [address]- 5265 06 Jul, 2016 Cellulitis of right breast N61.0 [facility] [address] [address]- 4383 Jun, [facility] [id number] [place] [address] 63550- 8303 Jun, [facility] [id number] [place] [address] 82374- 5108 Jun, Wheezing R06.2 and Arthralgia, unspecified joint M25.50 [facility] [id number] [place] [address] 60339- 8746 May, [facility] [address] 26928- 1446 May, [facility] [id number] [place] [address] 03362- 9623 May, [facility] [address] 22984- 0099 05 May, 2016 Shortness of breath R06.02 [facility] [id number] [place] [address] 07526- 1000 May, Onychomycosis B35.1 and Fissure in skin of foot R23.4 [facility] [id number] [place] [address] 44753- 6381 28 Apr, 2016 [facility] [id number] [place] [address] 57165 -8619 18 Apr, 2016 Dizziness R42 [facility] [id number] [place] [address] 48577- 6382 14 Apr, 2016 Shortness of breath R06.02 ; Essential hypertension I10 ; Dizziness R42 and On home oxygen therapy Z99.81 [facility] [id number] [place] [address] 53090- 9354 Apr, [facility] [address] 51299- 0178 08 Apr, 2016 [facility] [id number] [place] [address] 56265- 0945 07 Apr, 2016 [facility] [id number] [place] [address] 13724- 1397 Apr, [facility] [address] [address]- 2304 Apr, [facility] [id number] [place] [address] 96221- 9900 Apr, [facility] [id number] [place] [address] 33791- 4493 Apr, [facility] [id number] [place] [address] 24230- 7185 Mar, Mild chronic obstructive pulmonary disease J44.9 [facility] [id number] [place] [address] 18319- 3152 Mar, [facility] [id number] [place] [address] 38349- 1499 Mar, Epigastric pain R10.13 ; Low back pain M54.5 ; Other chronic pain G89.29 and Breast cancer screening Z12.39 [facility] [id number] [place] [address] 82276- 0951 Mar, [facility] [id number] [place] [address] 46401- 8096 Mar, [facility] [id number] [place] [address] 84725- 2993 Feb, [facility] [id number] [place] [address] 70221- 8276 Feb, [facility] [id number] [place] [address] 68861- 2062 Feb, Fissure in skin of foot R23.4 and Onychomycosis B35.1 [facility] [address] [id number] [address]- 9302 Jan, 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 [facility] [address] [address]- 4248 Dec, 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 [facility] [address], [place] [address]- 9302 Dec, Mild persistent asthma without complication J45.30 ; Dysthymic disorder F34.1 and Upper respiratory tract infection, unspecified type J06.9 [facility] [address] [address]- 8791 Nov, 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 [place] [address] [id number] [place] [address] 32632- 4744 October, 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 [place] [address] [address] [id number] [place] [address] 33006- 4188 Sep, Panic disorder without agoraphobia F41.0 ; 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 and Dysthymic disorder F34.1 [place] [address] [place] [id number] [place] [address] 75895- 9826 Sep, Panic attacks F41.0 [place] [address] [address] [id number] [place] [address] 76473- 7384 Sep, [place] [address] [id number] [place] [address] 08479- 0143 Sep, Panic disorder without agoraphobia F41.0 ; Varicose veins of both lower extremities I83.93 and Fatigue R53.83 [place] [id number] [place] [address] 97425- 0503 Sep, Fatigue R53.83 [place] [id number] [place] [address] 88093- 7935 Sep, [place] [address] [id number] [place] [address] 25449- 0382 Aug, [place] [address] [place] [id number] [place] [address] 22422- 9770 Aug, [facility] [id number] [place] [address] 46418- 5429 Aug, 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 [place] [address] [place] [id number] [place] [address] 72967- 0783 Aug, Panic disorder without agoraphobia F41.0 ; 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 and Dysthymic disorder F34.1 [place] [address] [address] [id number] [place] [address] 84690- 6757 Aug, Shortness of breath R06.02 ; Panic attacks F41.0 ; COPD ( chronic obstructive pulmonary disease) J44.9 ; Tobacco abuse Z72.0 ; Family history of diabetes mellitus Z83.3 and Weight gain R63.5 [place] [address] 90617- 5023 Aug, [place] [address] 78736- 5838 Jul, [place] [address] 04376- 8416 Jun, Onychomycosis B35.1 ; Neuropathy G62.9 and Impaired circulation I99.9 [place] [address] 20342- 7683 Mar, Fissure in skin of foot R23.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 [place] [address] [id number] [place] [address] 76492- 5441 Feb, Family history of coronary arteriosclerosis V17.3 [place] [address] [place] [id number] [place] [address] 07025- 3140 15 Feb, 2015 Allergic rhinitis due to pollen 477.0 ; Unspecified breast screening V76.10 ; Anxiety 300.00 and Family history of coronary arteriosclerosis V17.3 [place] [address] [id number] [place] [address] 46570- 7461 Jan, [place] [address] 05452- 1992 Dec, [facility] [address] [facility] [id number] [place] [address]- 8018 Dec, Onychomycosis 110.1 and Skin fissures 709.8 [facility] [address] [id number] [place] [address]- 7136 14 Sep, 2014 [facility] [address] [facility] [id number] [place] [address]- 5926 Sep, [facility] [address] [id number] [place] [address]- 1190 Aug, [facility] [address] [id number] [place] [address]- 1195 Aug, [facility] [address] [facility] [id number] [place] [address]- 1926 Jul, [facility] [address] [place] [id number] [place] [address]- 2073 Jul, [facility] [address] [facility] [id number] [place] [address]- 0856 Jun, [facility] [address] [place] [id number] [place] [address]- 9530 Jun, [facility] [address] [place] [id number] [place] [address]- 4142 Jun, [facility] [address] [facility] [id number] [place] [address]- 3030 Jun, [facility] [address] [facility] [id number] [place] [address]- 0766 Jun, [facility] [address] [facility] [id number] [place] [address]- 3636 May, [facility] [address] [facility] [id number] [place] [address]- 2546 May, [facility] [address] [place] [address] [id number] [place] [address]- 1717 May, [facility] [place] [facility] [address] [id number] [place] [address]- 0679 May, [facility] [place] [facility] [address] [id number] [place] [address]- 7039 May, [facility] [place] [facility] [address] [id number] [place] [address]- 3301 May, [facility] [place] [facility] [address] [id number] [place] [address]- 7216 May, [facility] [place] [facility] [address] [id number] [place] [address]- 9993 May, [facility] [place] [facility] [address] [id number] [place] [address]- 6094 Apr, [facility] [place] [facility] [address] [id number] [place] [address]- 4866 Apr, [facility] [place] [facility] [address] [id number] [place] [address]- 3604 Apr, [facility] [place] [facility] [address] [id number] [place] [address]- 9383 Apr, [facility] [place] [facility] [address] [id number] [place] [address]- 4047 Apr, [facility] [place] [facility] [address] [id number], [place] [address]- 7277 Apr, [facility] [place] [facility] [address] [id number], [place] [address]- 7276 Apr, [facility] [place] [facility] [address] [id number] [place] [address]- 2485 Apr, [facility] [place] [facility] [address] [id number], [place] [address]- 2367 Apr, [facility] [place] [facility] [address] [id number] [place] [address]- 4066 Apr, [facility] [place] [facility] [address] [id number] [place] [address]- 4691 29 Mar, 2014 [facility] [place] [facility] [address] [id number] [place] [address]- 4753 29 Mar, 2014 [facility] [place] [facility] [address] [id number] [place] [address]- 5202 Mar, [facility] [place] [facility] [address] [id number] [place] [address]- 7999 Mar, [facility] [place] [facility] [address] [id number] [place] [address]- 4977 Mar, [facility] [place] [facility] [address] [id number] [place] [address]- 0014 Mar, [facility] [place] [facility] [address] [id number] [place] [address]- 4398 Mar, [facility] [place] [facility] [address] [id number] [place] [address]- 3805 Mar, [facility] [place] [facility] [address] [id number] [place] [address]- 9598 24 Mar, 2014 [facility] [place] [facility] [address] [id number] [place] [address]- 5237 Mar, [facility] [place] [facility] [address] [id number] [place] [address]- 8849 Mar, [facility] [place] [facility] [address] [id number] [place] [address]- 9292 Mar, [facility] [place] [facility] [address] [id number] [place] [address]- 2297 Mar, [facility] [place] [facility] [address] [id number] [place] [address]- 6038 Mar, [facility] [place] [facility] [address] [id number] [place] [address]- 7760 Mar, [facility] [place] [facility] [address] [id number] [place] [address]- 9339 Mar, [facility] [place] [facility] [address] [id number] [place] [address]- 4316 20 Mar, 2013 [facility] [place] [facility] [address] [id number] [place] [address]- 8911 16 Mar, 2013 [facility] [place] [facility] [address] [id number] [place] [address]- 5604 16 Mar, 2013 [facility] [place] [facility] [address] [id number] [place] [address]- 7166 15 Mar, 2013 [facility] [place] [facility] [address] [id number] [place] [address]- 6527 14 Mar, 2014 [facility] [place] [facility] [address] [id number] [place] [address]- 2037 14 Mar, 2014 [facility] [place] [facility] [address] [id number] [place] [address]- 6784 14 Mar, 2014 [facility] [place] [facility] [address] [id number] [place] [address]- 6955 14 Mar, 2014 [facility] [place] [facility] [address] [id number] [place] [address]- 8867 09 Mar, 2014 [facility] [place] [facility] [address] [id number] [place] [address]- 3074 09 Mar, 2013 [facility] [place] [facility] [address] [id number] [place] [address]- 0278 Mar, [facility] [place] [facility] [address] [id number] [place] [address] Mar, 2013 [facility] [place] [facility] [address] [id number] [place] [address] 30 Feb, 2014 [facility] [place] [facility] [address] [id number] [place] [address] 30 Feb, 2013 [facility] [place] [facility] [address] [id number] [place] [address] 30 Feb, 2013 [facility] [place] [facility] [address] [id number] [place] [address] 30 Feb, 2013 [facility] [place] [facility] [address] [id number] [place] [address] Feb, 2013 [facility] [place] [facility] [address] [id number] [place] [address] Feb, 2013 [facility] [place] [facility] [address] [id number] [place] [address] Feb, 2013 [facility] [place] [facility] [address] [id number] [place] [address] Feb, 2013 [facility] [place] [facility] [address] [id number] [place] [address] Feb, 2013 [facility] [place] [facility] [address] [id number] [place] [address] Feb, 2013 [facility] [place] [facility] [address] [id number] [place] [address] Feb, 2013 [facility] [place] [facility] [address] [id number] [place] [address] Feb, 2013 [facility] [place] [facility] [address] [id number] [place] [address] Jan, [facility] [place] [facility] [address] [id number] [place] [address] Jan, [facility] [place] [facility] [address] [id number] [place] [address]- [address] Jan, [facility] [place] [facility] [address] [id number] [place] [address] Jan, [facility] [place] [facility] [address] [id number] [place] [address]- [address] Jan, [facility] [place] [facility] [address] [id number] [place] [address]- [address] Jan, [facility] [place] [facility] [address] [id number] [place] [address] Jan, [facility] [place] [facility] [address] [id number] [place] [address] Jan, [facility] [place] [facility] [address] [id number] [place] [address] Jan, [facility] [place] [facility] [address] [id number] [place] [address] Jan, [facility] [place] [facility] [address] [id number] [place] [address]- [address] Jan, [facility] [place] [facility] [address] [id number] [place] [address] Jan, [facility] [place] [facility] [address] [id number] [place] [address]- [address] Jan, [facility] [place] [facility] [address] [id number] [place] [address] Dec, [facility] [place] [facility] [address] [id number] [place] [address] Dec, [facility] [place] [facility] [address] [id number] [place] [address]- [address] Dec, [facility] [place] [facility] [address] [id number] [place] [address] Dec, [facility] [place] [facility] [address] [id number] [place] [address]- [address] Dec, [facility] [place] [facility] [address] [id number] [place] [address] Dec, [facility] [place] [facility] [address] [id number] [place] [address] Dec, [facility] [place] [facility] [address] [id number] [place] [address] Dec, [facility] [place] [facility] [address] [id number] [place] [address] Dec, [facility] [place] [facility] [address] [id number] [place] [address] Dec, [facility] [place] [facility] [address] [id number] [place] [address]- [address] Dec, 2013 [facility] [place] [facility] [address] [id number] [place] [address]- [address] Dec, 2013 [facility] [place] [facility] [address] [address] [id number] [place] [address] Dec, 2013 [facility] [place] [facility] [address] [id number] [place] [address] Dec, 2013 [facility] [place] [facility] [address] [id number] [place] [address] Dec, 2013 [facility] [place] [facility] [address] [id number] [place] [address]131 Dec, 2013 [facility] [place] [facility] [address] [id number] [place] [address]179 Dec, 2013 [facility] [place] [facility] [address] [id number] [place] [address] 0120 Dec, 2013 [facility] [place] [facility] [address] [id number] [place] [address] 8470 Nov, [facility] [place] [facility] [address] [id number] [place] [address] 3114 Nov, [facility] [place] [facility] [address] [id number] [place] [address] 2610 Nov, [facility] [place] [facility] [address] [id number] [place] [address] 0359 Nov, [facility] [place] [facility] [address] [id number] [place] [address] 8044 Nov, [facility] [place] [facility] [address] [id number] [place] [address] 5707 Nov, [facility] [place] [facility] [address] [id number] [place] [address] Nov, [facility] [place] [facility] [address] [id number] [place] [address] 2114 Nov, [facility] [place] [facility] [address] [id number] [place] [address] 4631 Nov, [facility] [place] [facility] [address] [id number] [place] [address] 1516 Nov, [facility] [place] [facility] [address] [id number] [place] [address] 5022 Nov, [facility] [place] [facility] [address] [id number] [place] [address]- 1614 Nov, [facility] [place] [facility] [address] [id number] [place] [address]- 5015 Nov, [facility] [place] [facility] [address] [id number] [place] [address]- 3362 Nov, [facility] [place] [facility] [address] [id number] [place] [address] 5466 Nov, [facility] [place] [facility] [address] [id number] [place] [address]- 3921 Nov, [facility] [place] [facility] [address] [id number] [place] [address]- 9156 Nov, [facility] [place] [facility] [address] [id number] [place] [address]- 7820 Nov, [facility] [place] [facility] [address] [id number] [place] [address]- 5815 Nov, [facility] [place] [facility] [address] [id number] [place] [address]- 1765 Nov, [facility] [place] [facility] [address] [id number] [place] [address]- 9052 October, [facility] [place] [facility] [address] [id number] [place] [address]- 7397 October, [facility] [place] [facility] [address] [id number] [place] [address] 2997 October, [facility] [place] [facility] [address] [id number] [place] [address]- 1338 October, [facility] [place] [facility] [address] [id number] [place] [address]- 1106 Sep, [facility] [place] [facility] [address] [id number] [place] [address] 2046 Sep, [facility] [place] [facility] [address] [id number] [place] [address]- 8856 Sep, [facility] [place] [facility] [address] [id number] [place] [address]- 5853 Sep, [facility] [place] [facility] [address] [id number] [place] [address] 3929 Sep, [facility] [place] [facility] [address] [id number] [place] [address]- 7286 Sep, [facility] [place] [facility] [address] [id number] [place] [address]- 4828 Sep, [facility] [place] [facility] [address] [id number] [place] [address]- 0529 Sep, [facility] [place] [facility] [address] [id number] [place] [address]- 2746 Sep, [facility] [place] [facility] [address] [id number] [place] [address]- 6732 Aug, [facility] [place] [facility] [address] [id number] [place] [address]- 1790 Aug, [facility] [place] [facility] [address] [id number] [place] [address]- 9883 Aug, [facility] [place] [facility] [address] [id number] [place] [address] 3240 Aug, [facility] [place] [facility] [address] [id number] [place] [address]- 4646 Aug, [facility] [place] [facility] [address] [id number] [place] [address]- 4275 Aug, [facility] [place] [facility] [address] [id number] [place] [address]- 2846 Aug, [facility] [place] [facility] [address] [id number] [place] [address]- 0737 Aug, [facility] [place] [facility] [address] [id number] [place] [address]- 9687 Jul, [facility] [place] [facility] [address] [id number] [place] [address]- 4073 Jul, [facility] [place] [facility] [address] [id number] [place] [address]- 5195 Jun, [facility] [place] [facility] [address] [id number] [place] [address]- 8500 Jun, [facility] [place] [facility] [address] [id number] [place] [address]- 9088 Jun, [facility] [place] [facility] [address] [id number] [place] [address]- 4141 Jun, [facility] [place] [facility] [address] [id number] [place] [address]- 8680 Jun, [facility] [place] [facility] [address] [id number] [place] [address]- 6112 Jun, [facility] [place] [facility] [address] [id number] [place] [address]- 0703 Jun, [facility] [place] [facility] [address] [id number], [place] [address] 3476 Jun, [facility] [place] [facility] [address] [id number] [place] [address]- 5321 Jun, [facility] [place] [facility] [address] [id number] [place] [address]- 1472 Jun, [facility] [place] [facility] [address] [id number] [place] [address]- 0879 Jun, [facility] [place] [facility] [address] [id number] [place] [address]- 8569 Jun, [facility] [address] [id number] [place] [address]- 6913 31 May, 2013 [facility] [place] [facility] [address] [id number] [place] [address] 1936 May, [facility] [address] [id number] [place] [address]- 4810 May, [facility] [place] [facility] [address] [id number] [place] [address]- 7373 May, [facility] [address] [id number] [place] [address]- 1199 May, [facility] [address] [id number] [place] [address]- 4594 May, [facility] [address] [id number] [place] [address]- 6652 May, [facility] [address] [id number] [place] [address]- 0476 May, [facility] [place] [facility] [address] [id number] [place] [address]- 0390 May, [facility] [address] [id number] [place] [address] 16 May, 2013 [facility] [place] [facility] [address] [id number] [place] [address]- 1756 16 May, 2013 [facility] [place] [facility] [address] [id number] [place] [address]- 1084 16 May, 2013 [facility] [place] [facility] [address] [id number] [place] [address]- 5388 May, [facility] [place] [facility] [address] [id number] [place] [address]- 1694 Apr, [facility] [place] [facility] [address] [id number] [place] [address]- 1014 Apr, [facility] [place] [facility] [address] [id number] [place] [address]- 4601 Mar, [facility] [place] [facility] [address] [id number] [place] [address]- 8909 Mar, [facility] [place] [facility] [address] [id number] [place] [address]- 9806 Feb, [facility] [place] [facility] [address] [id number] [place] [address]- 8418 Feb, [facility] [address] [id number] [place] [address]- 3900 Feb, [facility] [place] [facility] [address] [id number] [place] [address]- 0128 Feb, [facility] [address] [id number] [place] [address]- 6674 Jan, [facility] [place] [facility] [address] [id number] [place] [address]- 6813 Jan, [facility] [place] [facility] [address] [id number] [place] [address]- 6702 Jan, [facility] [place] [facility] [address] [id number] [place] [address]- 5324 Jan, [facility] [place] [facility] [address] [id number] [place] [address]- 2008 Jan, [facility] [place] [facility] [address] [id number] [place] [address]- 7634 Jan, [facility] [place] [facility] [address] [id number] [place] [address]- 3256 Dec, [facility] [place] [facility] [address] [id number] [place] [address]- 5223 Dec, [facility] [place] [facility] [address] [id number] [place] [address]- 6928 Dec, [facility] [place] [facility] [address] [id number] [place] [address]- 6099 Dec, [facility] [place] [facility] [address] [id number] [place] [address]- 4562 Nov, [facility] [place] [facility] [address] [id number] [place] [address]- 4454 October, [facility] [place] [facility] [address] [id number] [place] [address]- 2079 October, [facility] [place] [facility] [address] [id number] [place] [address]- 1027 October, [facility] [place] [facility] [address] [id number] [place] [address]- 2832 Sep, [facility] [place] [facility] [address] [id number] [place] [address]- 2874 Sep, [facility] [place] [facility] [address] [id number] [place] [address]- 6110 Jun, [facility] [place] [facility] [address] [id number] [place] [address]- 1064 Jun, [facility] [place] [facility] [address] [id number] [place] [address]- 1797 Jun, [facility] [place] [facility] [address] [id number] [place] [address]- 2304 Apr, [facility] [place] [facility] [address] [id number], [place] [address]- 0844 Apr, [facility] [place] [facility] [address] [id number] [place] [address]- 2123 Apr, [facility] [place] [facility] [address] [id number] [place] [address]- 8935 Apr, [facility] [place] [facility] [address] [id number] [place] [address]- 9315 Mar, [facility] [place] [facility] [address] [id number] [place] [address]- 4114 Mar, [facility] [place] [facility] [address] [id number] [place] [address]- 7205 Mar, [facility] [address] [id number] [place] [address]- 6004 Mar, [facility] [place] [facility] [address] [id number] [place] [address]- 6176 29 Feb, 2012 [facility] [address] [id number] [place] [address]- 5584 Feb, [facility] [place] [facility] [address] [id number] [place] [address]- 3009 Feb, [facility] [address] [id number] [place] [address]- 6662 Jan, [facility] [place] [facility] [address] [id number] [place] [address]- 5459 Jan, [facility] [place] [facility] [address] [id number] [place] [address]- 8727 Jan, [facility] [address] [id number] [place] [address]- 8535 Jan, [facility] [place] [facility] [address] [id number] [place] [address]- 2465 Dec, [facility] [address] [id number] [place] [address]- 1047 Dec, [facility] [place] [facility] [address] [id number] [place] [address]- 9462 Nov, [facility] [place] [facility] [address] [id number] [place] [address]- 7155 Nov, [facility] [place] [facility] [address] [id number] [place] [address]- 6073 October, [facility] [place] [facility] [address] [id number] [place] [address]- 4936 October, [facility] [place] [facility] [address] [id number] [place] [address]- 6753 October, [facility] [address] [id number] [place] [address]- 4674 Sep, [facility] [place] [facility] [address] [id number] [place] [address]- 3672 Sep, [facility] [place] [facility] [address] [id number] [place] [address]- 5693 Sep, [facility] [place] [facility] [address] [id number] [place] [address]- 7930 Aug, [facility] [place] [facility] [address] [id number] [place] [address]- 7238 26 Aug, 2011 [facility] [place] [facility] [address] [id number] [place] [address]- 1151 15 Aug, 2011 [facility] [place] [facility] [address] [facility] [id number] [place] [address]- 5014 Aug, [facility] [place] [facility] [address] [id number] [place] [address]- 8010 Aug, [facility] [place] [facility] [address] [id number] [place] [address]- 1502 Jul, [facility] [place] [facility] [address] [facility] [id number] [place] [address]- 3260 16 Jul, 2011 [facility] [place] [facility] [address] [id number] [place] [address]- 0958 Jul, [facility] [place] [facility] [address] [id number], [place] [address]- 9068 Jul, [facility] [place] [facility] [address] [id number] [place] [address]641 Jul, [facility] [place] [facility] [address] [id number] [place] [address]151 06 Jul, 2011 [facility] [place] [facility] [address] [facility] [id number] [place] [address]- 5536 Jul, [facility] [place] [facility] [address] [id number] [place] [address]- 2546 Jul, [facility] [address] [id number] [place] [address]- 1405 Jun, [facility] [place] [facility] [address] [id number] [place] [address]- 2546 Jun, [facility] [address] [id number] [place] [address]- 9398 May, [facility] [address] [id number] [place] [address]- 4496 May, [facility] [address] [id number] [place] [address], [place] [address]- 8501 May, [facility] [address] [id number] [place] [address]- 9263 May, [facility] [address] [id number] [place] [address]- 7506 Apr, [facility] [address] [id number] [place] [address]- 4453 Apr, [facility] [address] [facility] [id number] [place] [address]- 2508 Apr, [facility] [address] [facility] [id number] [place] [address]- 7307 Mar, [facility] [place] [facility] [address] [id number] [place] [address]- 7005 Mar, [facility] [place] [facility] [address] [id number] [place] [address]- 3389 Mar, [facility] [place] [facility] [address] [id number] [place] [address]- 9050 Mar, [facility] [place] [facility] [address] [id number] [place] [address]- 2546 Dec, [facility] [place] [facility] [address] [id number] [place] [address]- 8844 October, [facility] [address] [id number], [place] [address]- 5567 May, [facility] [id number], [place] [address]- 8066 May, [facility] [id number], [place] [address]- 1698 May, [facility] [id number], [place] [address]- 3536 May, [facility] [id number] 1333 Mar, [facility] [id number] 1831 Mar, [facility] [id number] 7181 May, [facility] [id number], [place] [address]- 2072 May, [facility] [id number] 7132 May, [facility] [id number] 8930 May, [facility] [address] [id number], [place] [address]- 9539 Apr, [facility] [address] [id number], [place] [address]- 8623 Apr, [facility] [address] [id number], [place] [address]- 9377 October, IMMUNIZATIONS Vaccine Route Administration Date Status SOLUMEDROL (UP TO 125 MG) IM Intramuscular November 21, 2017 Administered SOCIAL HISTORY Never Assessed REASON FOR VISIT Faintin/dizziness WB-MA, PT claims she fell several times this weekend PLAN OF CARE VITAL SIGNS Height 64 in 2017-11-21 Weight 250 lbs 2017-11-21 Temperature 98.8 degrees Fahrenheit 2017-11-21 Heart Rate 94 bpm 2017-11-21 Respiratory Rate 20 2017-11-21 BMI 42.91 kg/m2 2017-11-21 Blood pressure systolic 128 mmHg 2017-11-21 Blood pressure diastolic 76 mmHg 2017-11-21 MEDICATIONS Medication Instructions Dosage Frequency Start Date End Date Duration Status Symbicort 160-4.5 MCG/ACT Inhalation Twice a day 2 puffs 12h 90 days Active Quinapril HCl 20 mg Orally Once a day 2 tablets 24h Active Toviaz 4 MG Orally Once a day 1 tablet 24h Active Oxygen ... 2L with nasal cannula Active PredniSONE 20 mg Orally Once a day 2 tablets 24h Nov, Nov, 05 days Active Nebulizer - as directed for use with inhaled medications Mar, lifetime Active Ranitidine HCl 150 MG Orally 2 times a day 1 tablet 12h Active Nitrofurantoin Monohyd Macro 100 mg Orally Once a day 1 capsule with supper 24h Active HydrOXYzine HCl 50 mg Orally 2 times a day 1 tablet 12h Active Meloxicam 7.5 MG Orally Once a day 1 tablet 24h Active Ropinirole HCl 0.5 MG Orally Once a day 1 tablet 1 to 3 hours before bedtime 24h Active Montelukast Sodium 10 MG Orally Once a day 1 tablet in the evening 24h 90 days Active Gabapentin 300 MG Orally Once a day 1 capsule at bedtime 24h Active Simvastatin 40 MG Orally Once a day 1 tablet in the evening 24h 30 Active Estradiol 0.5 MG 1 tablet Active Albuterol Sulfate (2.5 MG/3ML) 0.083% Inhalation every 6 hrs 3 ml as needed 6h Apr, Active Ventolin HFA 108 (90 Base) MCG/ACT Inhalation every 4 hrs 2 puffs as needed 4h Dec, 90 days Active Cyclobenzaprine HCl 10 MG Orally every 6 hrs 1 tablet as needed for spasms 6h Active Doxycycline Hyclate 100 mg Orally Twice a day 1 capsule 12h Nov, Nov, 10 day(s) Active Fluoxetine HCl 20 mg Orally Once a day 1 capsule in the morning 24h Aug 90 days Active Tramadol HCl 50 mg Orally 2 times a day 1 tablet as needed 12h Active RESULTS No Results PROCEDURES Procedure Date Ordered Result Body Site [facility] VISIT ESTABLISHED PATIENT November 21, 2017 THER/PROPH/DIAG INJ, SC/IM November 21, 2017 SOLUMEDROL (UP TO 125 MG) November 21, 2017 INSTRUCTIONS MEDICATIONS ADMINISTERED No Known Medications [...]
--- OUTSIDE RECORDS SUMMARY | 2018-03-17 11:16 | XMS REPORT ---
Author Author RASHEED RAHMAN [facility] Address [address] [place] [address] Care Team Providers Care Personal Lines Account Executive Name Role Phone RASHEED RAHMAN Unavailable PROBLEMS Type Condition ICD9-CM Code XTQ69-IS Code Onset Dates Condition Status SNOMED Code Problem Other chronic pain G89.29 Active 08653337 Problem On home oxygen therapy Z99.81 Active 599000715003 Problem Mild chronic obstructive pulmonary disease J44.9 Active 893694550 Problem COPD (chronic obstructive pulmonary disease) with chronic bronchitis J44.9 Active 323887926 Problem History of illicit drug use Z87.898 Active 764660774 Problem COPD exacerbation J44.1 Active 538900478 Problem Neuropathy G62.9 Active 540985685 Problem Essential hypertension I10 Active 55699911 Problem 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 Active 68809575 Problem Major depressive disorder, recurrent episode, moderate F33.1 Active 766801047 Problem Impaired circulation I99.9 Active 41382068 Problem 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 Active 61240968 Problem Snoring R06.83 Active 48718297 Problem MRSA (methicillin resistant staph aureus) culture positive Z22.322 Active 140521305 Problem Fatigue R53.83 Active 24621724 Problem Varicose veins of both lower extremities I83.93 Active 42978495 Problem Dysthymic disorder F34.1 Active 86652572 Problem Upper respiratory tract infection, unspecified type J06.9 Active 27739770 Problem Panic disorder without agoraphobia F41.0 Active 97302936 Problem Mild persistent asthma without complication J45.30 Active 569450712 ALLERGIES Substance Reaction Event Type Date Status Sulfamethoxazole-Trimethoprim Unknown Drug Allergy Sep, Active Codeine Phosphate swelling Drug Allergy Sep, Active ENCOUNTERS Encounter Location Date Diagnosis [facility] [address] [facility] [id number] [address] Feb, [place] [address] [place] [id number] [place] [address] 76085- 3895 Jan, Bronchitis J40 and Acute suppurative otitis media of left ear without spontaneous rupture of tympanic membrane, recurrence not specified H66.002 [place] [address] [place] [id number] [place] [address] 82820- 1012 Jan, [place] [address] [address]- 4[address] Jan, Bronchitis J40 and BMI 40.0-44.9, adult Z68.41 [place] [address] 94163- 4256 Jan, [place] [address] 76528- 4385 Dec, Gastric pain R10.9 [place] [address] 62350- 5951 Dec, [place] [address] 38031- 2452 Dec, History of illicit drug use Z87.898 ; Neuropathy G62.9 ; COPD (chronic obstructive pulmonary disease) with chronic bronchitis J44.9 and Acute pain of right knee M25.561 [place] [address] [place] [place] [id number] [place] [address] 17809- 3401 Nov, [place] [address] 03846- 9306 Nov, Onychomycosis B35.1 and Contusion of left foot, subsequent encounter S90.32XD [place] [address] 96257- 4764 Nov, COPD exacerbation J44.1 [place] [address] [place] [id number] [place] [address] 52796- 3719 Sep, [place] [address] 16069- 2683 Sep, Dysthymic disorder F34.1 ; Tobacco abuse Z72.0 ; Pain in right knee M25.561 ; Pain in left knee M25.562 ; Other chronic pain G89.29 and BMI 40.0-44.9, adult Z68.41 [place] [address] [place] [id number] [place] [address] 56677- 7203 Aug, Major depressive disorder, recurrent episode, moderate F33.1 and 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 [place] [address] 40179- 2465 14 Aug, 2017 Dysthymic disorder F34.1 ; Non-pressure chronic ulcer of left thigh, unspecified ulcer stage L97.129 ; Tobacco abuse Z72.0 ; Mild chronic obstructive pulmonary disease J44.9 and Forgetfulness R68.[address] [address]- 8450 Aug, Onychomycosis B35.1 ; Fissure in skin of foot R23.4 and Foot callus L84 [facility] [place] [id number] [place] [address] 71609 -6226 Jul, Right medial knee pain M25.561 ; Upper respiratory tract infection, unspecified type J06.9 and BMI 40.0-44.9, adult Z68.41 [facility] [place] [id number] [place] [address] 11827 -9431 Jul, Nausea and vomiting, intractability of vomiting not specified, unspecified vomiting type R11.2 ; Left ear pain H92.02 and Gastric pain R10.9 [place] [address] [place] [place] [id number] [place] [address] 01087- 6487 Apr, Encounter for immunization Z23 [place] [address] [place] [id number] [place] [address] 83713- 6067 Apr, Onychomycosis B35.1 ; Xerosis of skin L85.3 ; Neuropathy G62.9 and 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 [facility] [address] [address] 8[address] Jan, Onychomycosis B35.1 and Neuropathy G62.9 [facility] [address] [address]- 5925 Dec, [facility] [address], [place] [address] 8783 Dec, [facility] [address], [place] [address]- 8710 Nov, [facility] [address] [place] [address] 88364- 5125 Aug, [facility] [id number] [place] [address] 70000- 3330 Aug, [facility] [address] [place] [address] 94917- 5991 Jul, [facility] [address], [place] [address]- 7651 Jul, [facility] [address] [place] [address] 63540- 2717 Jul, Decubitus ulcer of left thigh, stage 2 L89.892 [facility] [address], [place] [address]- 0531 Jul, Decubitus ulcer of left thigh, stage 2 L89.892 [facility] [address], [place] [address]- 9886 Jul, [facility] [address], [place] [address]- 1508 15 Jul, 2016 Decubitus ulcer of left thigh, stage 2 L89.892 [facility] [address], [place] [address]- 6066 14 Jul, 2016 [facility] [id number] [place] [address] 99726- 3597 13 Jul, 2016 Cellulitis of other specified site L03.818 ; Illicit drug use F19.90 and Decubitus ulcer of left thigh, stage 2 L89.892 [facility] [address] [id number] [place] [address] 85339- 6901 08 Jul, 2016 [facility] [id number] [place] [address] 37580- 4811 Jul, Cellulitis of right breast N61.0 [facility] [id number] [place] [address] 11201- 5217 Jun, [facility] [address] [place] [id number] [place] [address] 54297- 7803 Jun, [facility] [id number] [place] [address] 47979- 2562 Jun, Wheezing R06.2 and Arthralgia, unspecified joint M25.50 [facility] [id number] [place] [address] 58863- 1482 May, [facility] [address] [place] [id number] [place] [address] 08596- 4893 May, [facility] [id number] [place] [address] 08370- 2647 May, [facility] [address] [place] [address] [id number] [place] [address] 99883- 4104 May, Shortness of breath R06.02 [facility] [id number] [place] [address] 31382- 0907 May, Onychomycosis B35.1 and Fissure in skin of foot R23.4 [facility] [id number] [place] [address] 23219- 4122 Apr, [facility] [id number] [place] [address] 23565 -5636 Apr, Dizziness R42 [facility] [address] [place] [address] 62267- 0569 14 Apr, 2016 Shortness of breath R06.02 ; Essential hypertension I10 ; Dizziness R42 and On home oxygen therapy Z99.81 [facility] [id number] [place] [address] 67242- 6314 10 Apr, 2016 [facility] [id number] [place] [address] 41599- 7585 08 Apr, 2016 [facility] [id number] [place] [address] 65704- 1092 Apr, [facility] [id number] [place] [address] 19499- 6813 Apr, [facility] [id number] [place] [address] 87167- 6864 Apr, [facility] [id number] [place] [address] 54782- 2994 Apr, [facility] [id number] [place] [address] 69098- 6630 Apr, [facility] [id number] [place] [address] 07447- 9629 Mar, Mild chronic obstructive pulmonary disease J44.9 [facility] [id number] [place] [address] 03033- 5779 Mar, [facility] [address] [id number] [place] [address] 29339- 9638 Mar, Epigastric pain R10.13 ; Low back pain M54.5 ; Other chronic pain G89.29 and Breast cancer screening Z12.39 [facility] [address] [id number] [place] [address] 76063- 9101 Mar, [facility] [id number] [place] [address] 23771- 0257 Mar, [facility] [id number] [place] [address] 46444- 2476 Feb, [facility] [address] [address]- 9520 Feb, [facility] [address] [place] [address] 06890- 6510 Feb, Fissure in skin of foot R23.4 and Onychomycosis B35.1 [facility] [address] [place] [address] 59022- 5914 Jan, 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 [facility] [address] [place] [address] 98116- 6383 Dec, 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 [facility] [address] [address]- 9672 Dec, Mild persistent asthma without complication J45.30 ; Dysthymic disorder F34.1 and Upper respiratory tract infection, unspecified type J06.9 [place] [address] [address]- 5004 Nov, 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 [place] [address] [place] [id number] [place] [address] 51584- 3251 October, 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 [place] [address] [address]- 1423 Sep, Panic disorder without agoraphobia F41.0 ; 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 and Dysthymic disorder F34.1 [facility] [address], [place] [address]- 2281 Sep, Panic attacks F41.0 [facility] [address], [place] [address]- 4409 Sep, [facility] [address], [place] [address]- 2946 Sep, Panic disorder without agoraphobia F41.0 ; Varicose veins of both lower extremities I83.93 and Fatigue R53.83 [place] [address], [place] [address]- 0239 14 Sep, 2015 Fatigue R53.83 [place] [address] [place] [id number] [place] [address] 57538- 4608 05 Sep, 2015 [place] [address] [place] [id number] [place] [address] 65520- 9435 Aug, [place] [address] [place] [id number] [place] [address] 46365- 3200 Aug, [place] [address] [place] [id number] [place] [address] 49820- 5037 Aug, 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 [place] [address] [place] [id number] [place] [address] 73002- 2548 Aug, Panic disorder without agoraphobia F41.0 ; 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 and Dysthymic disorder F34.1 [place] [address] [place] [address] 67283- 8607 Aug, Shortness of breath R06.02 ; Panic attacks F41.0 ; COPD ( chronic obstructive pulmonary disease) J44.9 ; Tobacco abuse Z72.0 ; Family history of diabetes mellitus Z83.3 and Weight gain R63.5 [place] [address] [place] [address] 92147- 0027 Aug, [place] [address] [place] [id number] [place] [address] 70352- 9017 Jul, [place] [address] [place] [id number] [place] [address] 33225- 4221 Jun, Onychomycosis B35.1 ; Neuropathy G62.9 and Impaired circulation I99.9 [place] [address], [place] [address]- 9504 Mar, Fissure in skin of foot R23.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 [facility] [address], [place] [address]- 5160 18 Feb, 2015 Family history of coronary arteriosclerosis V17.3 [facility] [address] 1401 15 Feb, 2015 Allergic rhinitis due to pollen 477.0 ; Unspecified breast screening V76.10 ; Anxiety 300.00 and Family history of coronary arteriosclerosis V17.3 [facility] [address] 7717 Jan, [facility] [address] [place] [id number] [place] [address] 69632- 7744 Dec, [facility] [address] [place] [id number] [place] [address] 61549- 6815 Dec, Onychomycosis 110.1 and Skin fissures 709.8 [facility] [address] [place] [address] [address]- 3723 Sep, [facility] [address] [place] [id number] [place] [address] 70403- 5358 Sep, [facility] [address] [address] [address]- 5078 Aug, [facility] [address], [place] [address]- 1875 Aug, [facility] [id number] [address]- 5107 Jul, [facility] [address] 8892 Jul, [facility] [address]- 2067 Jun, [facility] [address] 2910 Jun, [facility] [address] [facility] [id number] [place] [address]- 9401 Jun, [facility] [address] [id number] [place] [address]- 4085 Jun, [facility] [place] [facility] [address] [id number] [place] [address]- 2441 Jun, [facility] [place] [facility] [address] [id number] [place] [address]- 3602 May, [facility] [place] [facility] [address] [id number] [place] [address]- 2917 May, [facility] [place] [facility] [address] [id number] [place] [address]- 4918 May, [facility] [place] [facility] [address] [id number] [place] [address]- 5093 May, [facility] [place] [facility] [address] [id number] [place] [address]- 5361 May, [facility] [place] [facility] [address] [id number] [place] [address]- 2143 May, [facility] [place] [facility] [address] [id number] [place] [address]- 6176 May, [facility] [place] [facility] [address] [id number] [place] [address]- 5026 May, [facility] [place] [facility] [address] [id number] [place] [address]- 8223 Apr, [facility] [place] [facility] [address] [id number] [place] [address]- 8996 Apr, [facility] [place] [facility] [address] [id number] [place] [address]- 6560 Apr, [facility] [place] [facility] [address] [id number] [place] [address]- 3791 Apr, [facility] [place] [facility] [address] [id number] [place] [address]- 3845 Apr, [facility] [place] [facility] [address] [id number] [place] [address]- 6341 Apr, [facility] [place] [facility] [address] [id number] [place] [address]- 3051 Apr, [facility] [place] [facility] [address] [id number] [place] [address]- 5159 Apr, [facility] [place] [facility] [address] [id number] [place] [address]- 6897 Apr, [facility] [place] [facility] [address] [id number] [place] [address]- 0868 Apr, [facility] [place] [facility] [address] [id number] [place] [address]- 6969 Mar, [facility] [place] [facility] [address] [id number] [place] [address]- 9698 Mar, [facility] [place] [facility] [address] [id number], [place] [address]- 6451 Mar, [facility] [place] [facility] [address] [id number] [place] [address]- 5033 Mar, [facility] [place] [facility] [address] [id number], [place] [address]- 3875 Mar, [facility] [place] [facility] [address] [id number], [place] [address]- 3202 Mar, [facility] [place] [facility] [address] [id number], [place] [address]- 3734 Mar, [facility] [place] [facility] [address] [id number] [place] [address]- 0120 Mar, [facility] [place] [facility] [address] [id number], [place] [address]- 7837 Mar, [facility] [place] [facility] [address] [id number] [place] [address]- 5427 Mar, [facility] [place] [facility] [address] [id number] [place] [address]- 4846 23 Mar, 2013 [facility] [place] [facility] [address] [id number] [place] [address]- 7869 22 Mar, 2013 [facility] [place] [facility] [address] [id number] [place] [address]- 6314 22 Mar, 2013 [facility] [place] [facility] [address] [id number] [place] [address]- 5215 22 Mar, 2013 [facility] [place] [facility] [address] [id number] [place] [address]- 5735 22 Mar, 2013 [facility] [place] [facility] [address] [id number] [place] [address]- 3418 20 Mar, 2013 [facility] [place] [facility] [address] [id number] [place] [address]- 7601 20 Mar, 2013 [facility] [place] [facility] [address] [id number] [place] [address]- 4840 16 Mar, 2013 [facility] [place] [facility] [address] [id number] [place] [address]- 0728 16 Mar, 2013 [facility] [place] [facility] [address] [id number] [place] [address]- 5394 15 Mar, 2013 [facility] [place] [facility] [address] [id number] [place] [address]- 1612 14 Mar, 2013 [facility] [place] [facility] [address] [id number] [place] [address]- 7256 14 Mar, 2013 [facility] [place] [facility] [address] [id number] [place] [address]- 9760 14 Mar, 2013 [facility] [place] [facility] [address] [id number] [place] [address]- 0367 14 Mar, 2014 [facility] [place] [facility] [address] [id number] [place] [address]- 3138 09 Mar, 2013 [facility] [place] [facility] [address] [id number] [place] [address]- 2388 09 Mar, 2013 [facility] [place] [facility] [address] [id number] [place] [address]- 3943 Mar, 2013 [facility] [place] [facility] [address] [id number] [place] [address]- 5292 Mar, 2013 [facility] [place] [facility] [address] [id number] [place] [address]- 2670 Feb, 2013 [facility] [place] [facility] [address] [id number] [place] [address]- 8712 30 Feb, 2013 [facility] [place] [facility] [address] [id number] [place] [address]- 4968 30 Feb, 2013 [facility] [place] [facility] [address] [id number] [place] [address]- 3190 Feb, 2013 [facility] [place] [facility] [address] [id number] [place] [address]- 5465 Feb, 2013 [facility] [place] [facility] [address] [id number] [place] [address]- 1656 Feb, 2013 [facility] [place] [facility] [address] [id number] [place] [address]- 8091 Feb, 2013 [facility] [place] [facility] [address] [id number] [place] [address]- 7694 Feb, 2013 [facility] [place] [facility] [address] [id number] [place] [address]- 0822 Feb, 2013 [facility] [place] [facility] [address] [id number] [place] [address]- 2547 Feb, 2013 [facility] [place] [facility] [address] [id number] [place] [address] 2548 Feb, 2013 [facility] [place] [facility] [address] [id number] [place] [address]- 2541 Feb, 2013 [facility] [place] [facility] [address] [id number] [place] [address]- 5393 Jan, [facility] [place] [facility] [address] [id number] [place] [address]- 0530 Jan, [facility] [place] [facility] [address] [id number] [place] [address]- 5518 Jan, [facility] [place] [facility] [address] [id number] [place] [address]- 0212 Jan, [facility] [place] [facility] [address] [id number] [place] [address]- 2550 Jan, [facility] [place] [facility] [address] [id number] [place] [address]- 4803 Jan, [facility] [place] [facility] [address] [id number] [place] [address]- 3158 Jan, [facility] [place] [facility] [address] [id number] [place] [address] Jan, [facility] [place] [facility] [address] [id number] [place] [address] Jan, [facility] [place] [facility] [address] [id number] [place] [address] Jan, [facility] [place] [facility] [address] [id number] [place] [address] Jan, [facility] [place] [facility] [address] [id number] [place] [address] Jan, [facility] [place] [facility] [address] [id number] [place] [address] Jan, [facility] [place] [facility] [address] [id number] [place] [address] Dec, [facility] [place] [facility] [address] [id number] [place] [address] Dec, [facility] [place] [facility] [address] [id number] [place] [address] Dec, [facility] [place] [facility] [address] [id number] [place] [address] Dec, [facility] [place] [facility] [address] [id number] [place] [address] Dec, 2013 [facility] [place] [facility] [address] [id number] [place] [address] Dec, 2013 [facility] [place] [facility] [address] [id number] [place] [address] Dec, [facility] [place] [facility] [address] [id number] [place] [address] Dec, 2013 [facility] [place] [facility] [address] [id number] [place] [address] Dec, [facility] [place] [facility] [address] [id number] [place] [address] Dec, [facility] [place] [facility] [address] [id number] [place] [address] Dec, [facility] [place] [facility] [address] [id number] [place] [address] Dec, 2013 [facility] [facility] [address] [id number] [place] [address] Dec, [facility] [place] [facility] [address] [id number] [place] [address] Dec, 2013 [facility] [address] [id number] [place] [address] Dec, [facility] [place] [facility] [address] [id number] [place] [address] Dec, [facility] [place] [facility] [address] [id number] [place] [address]- [address] Dec, [facility] [place] [facility] [address] [id number] [place] [address] Dec, [facility] [place] [facility] [address] [id number] [place] [address] Nov, [facility] [place] [facility] [address] [id number] [place] [address] Nov, [facility] [place] [facility] [address] [id number] [place] [address] Nov, [facility] [place] [facility] [address] [id number] [place] [address] Nov, [facility] [place] [facility] [address] [id number] [place] [address] Nov, [facility] [place] [facility] [address] [id number] [place] [address] Nov, [facility] [place] [facility] [address] [id number] [place] [address] Nov, [facility] [place] [address] [id number] [place] [address] Nov, [facility] [place] [facility] [address] [id number] [place] [address] Nov, [facility] [place] [facility] [address] [id number] [place] [address] Nov, [facility] [place] [facility] [address] [id number] [place] [address] Nov, [facility] [place] [facility] [address] [id number] [place] [address] Nov, [facility] [place] [facility] [address] [id number] [place] [address] Nov, [facility] [address] [id number] [place] [address] Nov, [facility] [place] [address] [id number] [place] [address] Nov, [facility] [place] [facility] [address] [id number] [place] [address] Nov, [facility] [address] [id number] [place] [address] Nov, [facility] [place] [facility] [address] [id number] [place] [address] Nov, [facility] [place] [facility] [address] [id number] [place] [address] Nov, [facility] [place] [facility] [address] [id number] [place] [address] Nov, [facility] [place] [facility] [address] [id number] [place] [address] October, [facility] [place] [facility] [address] [id number] [place] [address] 8368 October, [facility] [place] [facility] [address] [id number] [place] [address] 2276 October, [facility] [place] [facility] [address] [id number] [place] [address]154 October, [facility] [place] [facility] [address] [id number] [place] [address] 93[address] Sep, [facility] [place] [facility] [address] [id number] [place] [address] Sep, [facility] [place] [facility] [address] [id number] [place] [address] 5108 Sep, [facility] [place] [facility] [address] [id number] [place] [address] 4820 Sep, [facility] [place] [facility] [address] [id number] [place] [address] 9024 Sep, [facility] [place] [facility] [address] [id number] [place] [address] 7657 Sep, [facility] [place] [facility] [address] [id number] [place] [address]- 9275 Sep, [facility] [place] [facility] [address] [id number] [place] [address] 0243 Sep, [facility] [place] [facility] [address] [id number] [place] [address]- 5458 Sep, [facility] [place] [facility] [address] [id number] [place] [address]- 1578 Aug, [facility] [place] [facility] [address] [id number] [place] [address]- 6194 Aug, [facility] [place] [facility] [address] [id number] [place] [address]- 7406 Aug, [facility] [place] [facility] [address] [id number] [place] [address] 9156 Aug, [facility] [place] [facility] [address] [id number] [place] [address] 8437 Aug, [facility] [place] [facility] [address] [id number] [place] [address]- 3476 Aug, [facility] [place] [facility] [address] [id number] [place] [address]- 7087 Aug, [facility] [place] [facility] [address] [id number] [place] [address] 8011 Aug, [facility] [place] [facility] [address] [id number] [place] [address]- 0711 Jul, [facility] [place] [facility] [address] [id number] [place] [address]- 5501 Jul, [facility] [place] [facility] [address] [id number] [place] [address]- 2[address] Jun, [facility] [place] [facility] [address] [id number] [place] [address]- 6374 Jun, [facility] [place] [facility] [address] [id number] [place] [address]- 9635 Jun, [facility] [place] [facility] [address] [id number] [place] [address]- 6201 Jun, [facility] [place] [facility] [address] [id number] [place] [address]- 3822 Jun, [facility] [place] [facility] [address] [id number] [place] [address]- 3268 Jun, [facility] [place] [facility] [address] [id number] [place] [address]- 4124 Jun, [facility] [place] [facility] [address] [id number] [place] [address]- 8139 Jun, [facility] [place] [facility] [address] [id number] [place] [address]- 3821 Jun, [facility] [place] [facility] [address] [id number] [place] [address]- 2916 Jun, [facility] [place] [facility] [address] [id number] [place] [address]- 4020 Jun, [facility] [place] [facility] [address] [id number] [place] [address]- 8543 Jun, [facility] [place] [facility] [address] [id number] [place] [address]- 0080 May, [facility] [place] [facility] [address] [id number] [place] [address]- 5473 May, [facility] [place] [facility] [address] [id number] [place] [address] 2001 May, [facility] [place] [facility] [address] [id number] [place] [address]- 2206 May, [facility] [place] [facility] [address] [id number] [place] [address]- 4481 May, [facility] [place] [facility] [address] [id number] [address] 5[address] May, [facility] [place] [facility] [address] [id number] [place] [address]- 5669 May, [facility] [place] [facility] [address] [id number] [place] [address]- 1546 May, [facility] [place] [facility] [address] [id number] [place] [address] May, [facility] [place] [facility] [address] [id number] [place] [address]- 0570 May, [facility] [place] [facility] [address] [id number] [place] [address] May, [facility] [place] [facility] [address] [id number] [place] [address] May, [facility] [place] [facility] [address] [id number] [place] [address]- 5057 May, [facility] [place] [facility] [address] [id number] [place] [address]- 0750 Apr, [facility] [place] [facility] [address] [id number] [place] [address] Apr, [facility] [place] [facility] [address] [id number] [place] [address]- 2090 Mar, [facility] [place] [facility] [address] [id number] [place] [address]- 3584 Mar, [facility] [place] [facility] [address] [id number] [place] [address]- 2979 24 Feb, 2013 [facility] [place] [facility] [address] [id number] [place] [address] 6417 Feb, [facility] [place] [facility] [address] [id number] [place] [address]- 8790 Feb, [facility] [place] [facility] [address] [id number] [place] [address]- 2509 Feb, [facility] [place] [facility] [address] [id number] [place] [address]- 2165 Jan, [facility] [place] [facility] [address] [id number] [place] [address]- 9069 Jan, [facility] [place] [facility] [address] [id number] [place] [address] 7825 Jan, [facility] [place] [facility] [address] [id number] [place] [address] Jan, [facility] [place] [facility] [address] [id number] [place] [address] 2547 Jan, [facility] [address] [id number] [place] [address]- 0136 Jan, [facility] [address] [id number] [place] [address] 5211 Dec, [facility] [address] [id number] [place] [address]- 0209 Dec, [facility] [address] [id number] [place] [address]- 2708 Dec, [facility] [address] [id number] [place] [address]- 4143 Dec, [facility] [address] [id number] [place] [address]- 8939 Nov, [facility] [address] [id number] [place] [address]- 5358 October, [facility] [address] [id number] [place] [address]- 2427 October, [facility] [address] [id number] [place] [address]- 4772 October, [facility] [address] [id number] [place] [address]- 3426 Sep, [facility] [address] [id number] [place] [address]- 8013 Sep, [facility] [address] [id number] [place] [address]- 3866 Jun, [facility] [place] [facility] [address] [id number] [place] [address]- 4596 Jun, [facility] [place] [facility] [address] [id number] [place] [address]- 4869 Jun, [facility] [place] [facility] [address] [id number] [place] [address]- 5791 Apr, [facility] [place] [facility] [address] [id number] [place] [address]- 5095 Apr, [facility] [place] [facility] [address] [id number] [place] [address]- 8926 Apr, [facility] [place] [facility] [address] [id number] [place] [address]- 5083 Apr, [facility] [place] [facility] [address] [id number] [place] [address]- 9730 Mar, [facility] [place] [facility] [address] [id number] [place] [address]- 1444 Mar, [facility] [place] [facility] [address] [id number] [place] [address]- 2366 Mar, [facility] [place] [facility] [address] [id number] [place] [address]- 6169 Mar, [facility] [place] [facility] [address] [id number] [place] [address]- 8260 Feb, [facility] [place] [facility] [address] [id number] [place] [address]- 9852 Feb, [facility] [place] [facility] [address] [id number] [place] [address]- 7873 Feb, [facility] [place] [facility] [address] [id number] [place] [address]- 7291 Jan, [facility] [place] [facility] [address] [id number] [place] [address]- 6640 Jan, [facility] [place] [facility] [address] [id number] [place] [address]- 9300 Jan, [facility] [place] [facility] [address] [id number] [place] Jan, [facility] [place] [facility] [address] [id number] [place] [address]- 8283 Dec, [facility] [place] [facility] [address] [id number] [place] [address] 2546 Dec, [facility] [address] [id number] [place] [address]- 8390 Nov, [facility] [address] [id number] [place] [address]- 8126 Nov, [facility] [address] [id number] [place] [address]- 8188 October, [facility] [address] [id number] [place] [address]- 7732 October, [facility] [address] [id number] [place] [address]- 7090 October, [facility] [address] [id number] [place] [address]- 4939 Sep, [facility] [address] [id number] [place] [address]- 6393 Sep, [facility] [address] [id number] [place] [address]- 8616 Sep, [facility] [address] [id number] [place] [address]- 5518 Aug, [facility] [address] [id number] [place] [address]- 8052 Aug, [facility] [address] [id number] [place] [address]- 2071 Aug, [facility] [address] [id number] [place] [address]- 8513 15 Aug, 2011 [facility] [place] [facility] [address] [id number] [place] [address]- 0056 07 Aug, 2011 [facility] [address] [id number] [place] [address]- 6726 23 Jul, 2011 [facility] [address] [id number] [place] [address]- 2456 16 Jul, 2011 [facility] [place] [facility] [address] [id number] [place] [address]- 3214 Jul, [facility] [place] [facility] [address] [id number] [place] [address]- 5286 Jul, [facility] [place] [facility] [address] [id number] [place] [address]- 8613 Jul, [facility] [place] [facility] [address] [id number] [place] [address]- 4530 Jul, [facility] [place] [facility] [address] [id number] [place] [address]- 4185 Jul, [facility] [place] [facility] [address] [id number] [place] [address]- 5774 Jul, [facility] [place] [facility] [address] [id number] [place] [address]- 7737 Jun, [facility] [place] [facility] [address] [id number] [place] [address]- 7899 Jun, [facility] [place] [facility] [address] [id number] [place] [address]- 1299 May, [facility] [place] [facility] [address] [id number] [place] [address]- 3766 May, [facility] [place] [facility] [address] [id number] [place] [address]- 6657 May, [facility] [place] [facility] [address] [id number] [place] [address]- 5078 May, [facility] [place] [facility] [address] [id number] [place] [address]- 2631 Apr, [facility] [place] [facility] [address] [id number] [place] [address]- 7832 Apr, [facility] [place] [facility] [address] [id number] [place] [address]- 6258 Apr, [facility] [place] [facility] [address] [id number] [place] [address]- 9048 18 Mar, 2011 [facility] [address] [id number] [place] [address]- 9416 18 Mar, 2011 [facility] [place] [facility] [address] [id number] [place] [address]- 1436 18 Mar, 2011 [facility] [address] [id number] [place] [address]- 5995 2011 [facility] [address] [id number] [place] [address]- 6500 Dec, [facility] [address] [id number] [place] [address]- 6131 October, [facility] [address] [id number] [place] [address]- 6868 May, [facility] [address] [id number] [place] [address]- 5268 13 May, 2010 [facility] [address] [id number] [place] [address]- 8423 13 May, 2010 [facility] [address] [id number] [place] [address]- 7942 May, [facility] [address] [id number] [place] [address]- 5723 Mar, [facility] [address] [id number] [place] [address]- 4570 Mar, [facility] [address] [id number] [place] [address] 2543 May, [facility] [place] [facility] [address] [id number] [place] [address]- 4235 30 May, 2009 [facility] [place] [facility] [address] [id number] [place] [address]- 2546 May, [facility] [place] [facility] [address] [id number] [place] [address]- 2873 May, [facility] [address] [id number] [place] [address]- 3486 Apr, [facility] [address] [id number] [address] 2546 Apr, [facility] [address] [id number], [place] [address] October, IMMUNIZATIONS No Known Immunizations SOCIAL HISTORY Never Assessed REASON FOR VISIT Blood Pressure/Depression----DBennettRN PLAN OF CARE Activity Details Follow Up 3 Months Reason:depression VITAL SIGNS Height 64 in 2017-10-08 Weight 250 lbs 2017-10-08 Temperature 98.2 degrees Fahrenheit 2017-10-08 Heart Rate 90 bpm 2017-10-08 Respiratory Rate 20 2017-10-08 BMI 42.91 kg/m2 2017-10-08 Blood pressure systolic 132 mmHg 2017-10-08 Blood pressure diastolic 80 mmHg 2017-10-08 MEDICATIONS Medication Instructions Dosage Frequency Start Date End Date Duration Status Quinapril HCl 20 mg Orally Once a day 2 tablets 24h Active Cyclobenzaprine HCl 10 MG Orally every 6 hrs 1 tablet as needed for spasms 6h Active Simvastatin 40 MG Orally Once a day 1 tablet in the evening 24h 30 Active Nitrofurantoin Monohyd Macro 100 mg Orally Once a day 1 capsule with supper 24h Active Fluoxetine HCl 20 mg Orally Once a day 1 capsule in the morning 24h Aug 90 days Active Symbicort 160-4.5 MCG/ACT Inhalation Twice a day 2 puffs 12h 90 days Active Tramadol HCl 50 mg Orally 2 times a day 1 tablet as needed 12h Active Toviaz 4 MG Orally Once a day 1 tablet 24h Active Ropinirole HCl 0.5 MG Orally Once a day 1 tablet 1 to 3 hours before bedtime 24h Active Ventolin HFA 108 (90 Base) MCG/ACT Inhalation every 4 hrs 2 puffs as needed 4h Dec, 90 days Active Oxygen ... 2L with nasal cannula Active Albuterol Sulfate (2.5 MG/3ML) 0.083% Inhalation every 6 hrs 3 ml as needed 6h Apr, Active Ranitidine HCl 150 MG Orally 2 times a day 1 tablet 12h Active Nebulizer - as directed for use with inhaled medications 31 Oct, 2016 lifetime Active Meloxicam 7.5 MG Orally Once a day 1 tablet 24h Active HydrOXYzine HCl 50 mg Orally 2 times a day 1 tablet 12h Active Montelukast Sodium 10 MG Orally Once a day 1 tablet in the evening 24h 90 days Active Estradiol 0.5 MG 1 tablet Active Gabapentin 300 MG Orally Once a day 1 capsule at bedtime 24h Active RESULTS No Results PROCEDURES Procedure Date Ordered Result Body Site [facility] VISIT ESTABLISHED PATIENT October 08, 2017 INSTRUCTIONS MEDICATIONS ADMINISTERED No Known Medications [...]
--- OUTSIDE RECORDS SUMMARY | 2018-03-17 11:17 | XMS REPORT ---
Author Author RASHEED RAHMAN [facility] Address [address] [place] [address] Care Team Providers Care Social Service Agency Director Name Role Phone RASHEED RAHMAN Unavailable PROBLEMS Type Condition ICD9-CM Code OPS93-BP Code Onset Dates Condition Status SNOMED Code Problem Other chronic pain G89.29 Active 03434846 Problem On home oxygen therapy Z99.81 Active 180850268604 Problem Mild chronic obstructive pulmonary disease J44.9 Active 785253362 Problem COPD (chronic obstructive pulmonary disease) with chronic bronchitis J44.9 Active 595100900 Problem History of illicit drug use Z87.898 Active 687512213 Problem COPD exacerbation J44.1 Active 017462870 Problem Neuropathy G62.9 Active 074734375 Problem Essential hypertension I10 Active 73302540 Problem 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 Active 71761642 Problem Major depressive disorder, recurrent episode, moderate F33.1 Active 407075964 Problem Impaired circulation I99.9 Active 61957930 Problem 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 Active 49303211 Problem Snoring R06.83 Active 25291417 Problem MRSA (methicillin resistant staph aureus) culture positive Z22.322 Active 199074006 Problem Fatigue R53.83 Active 07193208 Problem Varicose veins of both lower extremities I83.93 Active 47220105 Problem Dysthymic disorder F34.1 Active 39268768 Problem Upper respiratory tract infection, unspecified type J06.9 Active 54980049 Problem Panic disorder without agoraphobia F41.0 Active 49607890 Problem Mild persistent asthma without complication J45.30 Active 943110259 ALLERGIES No Information ENCOUNTERS Encounter Location Date Diagnosis [facility] [address] [facility]NOTE 3] [id number] [address] Feb, [facility] [address] [facility]NOTE 3] [id number] [address] Jan, Bronchitis J40 and BMI 40.0-44.9, adult Z68.41 [facility] [address] [id number] [place] [address] 20615- 9542 Jan, [facility] [address] [id number] [place] [address] 47853- 2636 Dec, Gastric pain R10.9 [facility] [address] [address]- 68[address] Dec, [facility] [address] 6[address]06- 6324 Dec, History of illicit drug use Z87.898 ; Neuropathy G62.9 ; COPD (chronic obstructive pulmonary disease) with chronic bronchitis J44.9 and Acute pain of right knee M25.[address] [address]- [address] Nov, [facility] [address] [address]- 1642 Nov, Onychomycosis B35.1 and Contusion of left foot, subsequent encounter S90.32XD [place] [id number] [place] [address] 25335- 2323 Nov, COPD exacerbation J44.1 [facility] [id number] [place] [address] 70241- 6890 Sep, [facility] [address] [address]69- 3121 Sep, Dysthymic disorder F34.1 ; Tobacco abuse Z72.0 ; Pain in right knee M25.561 ; Pain in left knee M25.562 ; Other chronic pain G89.29 and BMI 40.0-44.9, adult Z68.41 [facility] [id number] [place] [address] 74238- 1694 Aug, Major depressive disorder, recurrent episode, moderate F33.1 and 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 [facility] [id number] [place] [address] 98503- 8702 14 Aug, 2017 Dysthymic disorder F34.1 ; Non-pressure chronic ulcer of left thigh, unspecified ulcer stage L97.129 ; Tobacco abuse Z72.0 ; Mild chronic obstructive pulmonary disease J44.9 and Forgetfulness R68.89 [facility] [address] 71923- 4646 Aug, Onychomycosis B35.1 ; Fissure in skin of foot R23.4 and Foot callus L84 [facility] [address] [address] Jul, Right medial knee pain M25.561 ; Upper respiratory tract infection, unspecified type J06.9 and BMI 40.0-44.9, adult Z68.41 [facility] [address] [address] Jul, Nausea and vomiting, intractability of vomiting not specified, unspecified vomiting type R11.2 ; Left ear pain H92.02 and Gastric pain R10.9 [facility] [address] 93102- 2539 Apr, Encounter for immunization Z23 [facility] [id number] [place] [address] 54675- 3482 Apr, Onychomycosis B35.1 ; Xerosis of skin L85.3 ; Neuropathy G62.9 and 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 [facility] [id number] [place] [address] 33203- 3103 Jan, Onychomycosis B35.1 and Neuropathy G62.9 [facility] [address] 71350- 3246 Dec, [facility] [address] 94002- 1974 Dec, [facility] [address] [id number] [address] Nov, [facility] [address] [address] Aug, [facility] [address]005[place] [address] 8955 Aug, [facility] [address] [address]- 1494 Jul, [facility] [address] [address]- 6250 Jul, [facility] [address] [address] 9[address] Jul, Decubitus ulcer of left thigh, stage 2 L89.892 [facility] [address] [address] 6068 Jul, Decubitus ulcer of left thigh, stage 2 L89.892 [facility] [address] [address]- 9040 Jul, [facility] [address] [address]- 3418 15 Jul, 2016 Decubitus ulcer of left thigh, stage 2 L89.892 [facility] [address] [id number] [address]- 1556 14 Jul, 2016 [facility] [address] [id number] [address] 6671 13 Jul, 2016 Cellulitis of other specified site L03.818 ; Illicit drug use F19.90 and Decubitus ulcer of left thigh, stage 2 L89.892 [facility] [address] [id number] [address] 7515 08 Jul, 2016 [facility] [address] [id number] [address]- 5533 Jul, Cellulitis of right breast N61.0 [facility] [id number] [place] [address] 85310- 8039 Jun, [facility] [id number] [place] [address] 21113- 5865 Jun, [facility] [id number] [place] [address] 00501- 0048 Jun, Wheezing R06.2 and Arthralgia, unspecified joint M25.50 [facility] [id number] [place] [address] 50101- 3671 May, [facility] [address] 65517- 7331 May, [facility] [id number] [place] [address] 11930- 7144 May, [facility] [address] 07758- 2686 May, Shortness of breath R06.02 [facility] [id number] [place] [address] 22719- 0206 May, Onychomycosis B35.1 and Fissure in skin of foot R23.4 [facility] [id number] [place] [address] 96925- 3766 Apr, [facility] [id number] [place] [address] 31188 -8751 Apr, Dizziness R42 [facility] [id number] [place] [address] 58070- 9178 14 Apr, 2016 Shortness of breath R06.02 ; Essential hypertension I10 ; Dizziness R42 and On home oxygen therapy Z99.81 [facility] [id number] [place] [address] 77781- 5979 10 Apr, 2016 [facility] [id number] [place] [address] 03848- 6053 08 Apr, 2016 [facility] [address] [address]- 7502 Apr, [facility] [id number] [place] [address] 64410- 4492 Apr, [facility] [address] [address]- 1065 Apr, [facility] [id number] [place] [address] 01399- 6675 Apr, [facility] [id number] [place] [address] 63916- 2403 Apr, [facility] [id number] [place] [address] 00243- 3925 Mar, Mild chronic obstructive pulmonary disease J44.9 [facility] [id number] [place] [address] 71436- 6989 Mar, [facility] [id number] [place] [address] 30082- 5681 Mar, Epigastric pain R10.13 ; Low back pain M54.5 ; Other chronic pain G89.29 and Breast cancer screening Z12.39 [facility] [address] [address]- 4849 Mar, [facility] [address] [address]- 3472 Mar, [facility] [address] [address]- 8610 Feb, [facility] [address] [address]- 9172 08 Feb, 2016 [facility] [id number] [place] [address] 68176- 1457 02 Feb, 2016 Fissure in skin of foot R23.4 and Onychomycosis B35.1 [facility] [id number] [place] [address] 10756- 9936 Jan, 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 [facility] [address] [address]- 0072 Dec, 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 [facility] [id number] [place] [address] 76147- 4980 Dec, Mild persistent asthma without complication J45.30 ; Dysthymic disorder F34.1 and Upper respiratory tract infection, unspecified type J06.9 [facility] [id number] [place] [address] 85980- 8271 Nov, 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 [facility] [id number] [place] [address] 42121- 1907 October, 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 [facility] [id number] [place] [address] 07579- 1555 Sep, Panic disorder without agoraphobia F41.0 ; 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 and Dysthymic disorder F34.1 [facility] [id number] [place] [address] 90699- 0160 Sep, Panic attacks F41.0 [facility] [id number] [place] [address] 12875- 0203 Sep, [facility] [id number] [place] [address] 12615- 2771 Sep, Panic disorder without agoraphobia F41.0 ; Varicose veins of both lower extremities I83.93 and Fatigue R53.83 [facility] [address] [address]- 9070 Sep, Fatigue R53.83 [facility] [id number] [place] [address] 07908- 2550 Sep, [facility] [id number] [place] [address] 67729- 2461 Aug, [facility] [id number] [place] [address] 53217- 5931 Aug, [facility] [id number] [place] [address] 08696- 4576 Aug, 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 [facility] [id number] [place] [address] 63155- 0784 Aug, Panic disorder without agoraphobia F41.0 ; 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 and Dysthymic disorder F34.1 [facility] [id number] [place] [address] 88363- 2558 Aug, Shortness of breath R06.02 ; Panic attacks F41.0 ; COPD ( chronic obstructive pulmonary disease) J44.9 ; Tobacco abuse Z72.0 ; Family history of diabetes mellitus Z83.3 and Weight gain R63.5 [place] [id number] [place] [address] 81160- 3514 Aug, [facility] [id number] [place] [address] 77310- 8300 Jul, [facility] [id number] [place] [address] 15456- 9997 Jun, Onychomycosis B35.1 ; Neuropathy G62.9 and Impaired circulation I99.9 [place] [id number] [place] [address] 24364- 9555 09 Mar, 2015 Fissure in skin of foot R23.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 [facility] [id number] [place] [address] 72739- 7169 18 Feb, 2015 Family history of coronary arteriosclerosis V17.3 [facility] [id number] [place] [address] 90363- 8506 15 Feb, 2015 Allergic rhinitis due to pollen 477.0 ; Unspecified breast screening V76.10 ; Anxiety 300.00 and Family history of coronary arteriosclerosis V17.3 [facility] [address] [id number] [place] [address]- 5318 Jan, [facility] [address] [id number] [place] [address]- 5436 Dec, [facility] [address] [facility]NOTE 3] [id number] [place] [address] 2547 Dec, Onychomycosis 110.1 and Skin fissures 709.8 [facility] [address] [id number] [place] [address] 2546 Sep, [facility] [address] [id number] [place] [address]- 3376 Sep, [facility] [address] [facility]NOTE 3] [id number] [place] [address]- 2656 Aug, [facility] [address] [facility]NOTE 3] [id number] [place] [address]- 5896 Aug, [facility] [address] [id number] [place] [address]- 1870 Jul, [facility] [address] [facility] 3] [id number] [place] [address]- 6923 Jul, [facility] [address] [facility]NOTE 3] [id number] [place] [address]- 0647 Jun, [facility] [address] [id number] [place] [address] 2540 Jun, [facility] [address] [id number] [place] [address] 2548 Jun, [facility] [address] [id number] [place] [address]- 0342 Jun, [facility] [address] [facility]] [id number] [place] 2006 Jun, [facility] [address] [facility]] [id number] [place] [address]- 5674 May, [facility] [place] [facility] [address] [id number] [place] [address]- 5595 May, [facility] [place] [facility] [address] [id number] [place] [address]- 5362 May, [facility] [place] [facility] [address] [id number] [place] [address]- 2203 May, [facility] [place] [facility] [address] [id number] [place] [address]- 4764 May, [facility] [place] [facility] [address] [id number] [place] [address]- 2227 May, [facility] [place] [facility] [address] [id number] [place] [address]- 2054 May, [facility] [place] [facility] [address] [id number] [place] [address]- 0141 May, [facility] [place] [facility] [address] [id number] [place] [address]- 3216 Apr, [facility] [place] [facility] [address] [id number] [place] [address]- 9076 Apr, [facility] [place] [facility] [address] [id number] [place] [address]- 1564 Apr, [facility] [place] [facility] [address] [id number] [place] [address]- 1522 Apr, [facility] [place] [facility] [address] [id number] [address]- 6896 Apr, [facility] [place] [facility] [address] [id number] [place] [address]- 4906 Apr, [facility] [place] [facility] [address] [id number] [place] [address]- 3800 Apr, [facility] [place] [facility] [address] [id number] [place] [address]- 6056 Apr, [facility] [place] [facility] [address] [id number] [address]- 3664 Apr, [facility] [place] [facility] [address] [id number] [place] [address]- 8844 Apr, [facility] [place] [facility] [address] [id number] [place] [address]- 1947 Mar, [facility] [place] [facility] [address] [id number] [place] [address]- 5886 Mar, [facility] [place] [facility] [address] [id number] [place] [address]- 9404 Mar, [facility] [place] [facility] [address] [id number] [place] [address]- 2941 Mar, [facility] [place] [facility] [address] [id number] [place] [address]- 7147 Mar, [facility] [place] [facility] [address] [id number] [place] [address]- 2751 Mar, [facility] [place] [facility] [address] [id number] [place] [address]- 4281 Mar, [facility] [place] [facility] [address] [id number] [place] [address]- 8569 Mar, [facility] [place] [facility] [address] [id number] [place] [address]- 9951 Mar, [facility] [place] [facility] [address] [id number], [place] [address]- 2988 Mar, [facility] [place] [facility] [address] [id number], [place] [address]- 6211 Mar, [facility] [place] [facility] [address] [id number] [place] [address]- 5154 Mar, [facility] [place] [facility] [address] [id number] [place] [address]- 8240 Mar, [facility] [place] [facility] [address] [id number] [place] [address]- 2519 Mar, [facility] [place] [facility] [address] [id number] [place] [address]- 2049 22 Mar, 2013 [facility] [place] [facility] [address] [id number] [place] [address]- 9335 20 Mar, 2013 [facility] [place] [facility] [address] [id number] [place] [address]- 8860 20 Mar, 2013 [facility] [place] [facility] [address] [id number] [place] [address]- 5329 16 Mar, 2013 [facility] [place] [facility] [address] [id number] [place] [address]- 3425 16 Mar, 2013 [facility] [place] [facility] [address] [id number] [place] [address]- 1799 15 Mar, 2013 [facility] [place] [facility] [address] [id number] [place] [address]- 4417 14 Mar, 2013 [facility] [place] [facility] [address] [id number] [place] [address]- 3692 14 Mar, 2013 [facility] [place] [facility] [address] [id number] [place] [address]- 4233 14 Mar, 2014 [facility] [place] [facility] [address] [id number] [place] [address]- 0845 14 Mar, 2013 [facility] [place] [facility] [address] [id number] [place] [address]- 4690 09 Mar, 2013 [facility] [place] [facility] [address] [id number] [place] [address]- 7334 09 Mar, 2013 [facility] [place] [facility] [address] [id number] [place] [address]- 5438 Mar, 2013 [facility] [place] [facility] [address] [id number] [place] [address]- 2864 Mar, 2013 [facility] [place] [facility] [address] [id number] [place] [address]- 8280 30 Feb, 2013 [facility] [place] [facility] [address] [id number] [place] [address]- 2769 30 Feb, 2013 [facility] [place] [facility] [address] [id number] [place] [address]- 4483 30 Feb, 2013 [facility] [place] [facility] [address] [id number] [place] [address]- 3889 30 Feb, 2013 [facility] [place] [facility] [address] [id number] [place] [address]- 7501 Feb, 2013 [facility] [place] [facility] [address] [id number] [place] [address]- 8566 Feb, 2013 [facility] [place] [facility] [address] [id number] [place] [address]- 6699 Feb, 2013 [facility] [place] [facility] [address] [id number] [place] [address]- 5160 Feb, 2013 [facility] [place] [facility] [address] [id number] [place] [address]- 5310 Feb, 2013 [facility] [place] [facility] [address] [id number] [place] [address]- 9775 Feb, 2013 [facility] [place] [facility] [address] [id number] [place] [address]- 9382 Feb, 2013 [facility] [place] [facility] [address] [id number] [place] [address]- 1056 Feb, 2013 [facility] [place] [facility] [address] [id number] [place] [address]- 9161 Jan, [facility] [place] [facility] [address] [id number] [place] [address]- 5310 Jan, [facility] [place] [facility] [address] [id number] [place] [address]- 2919 Jan, [facility] [place] [facility] [address] [id number] [place] [address]- 8997 Jan, [facility] [place] [facility] [address] [id number] [place] [address]- 2794 Jan, [facility] [place] [facility] [address] [id number] [place] [address]- 6296 Jan, [facility] [place] [facility] [address] [id number] [place] [address]- 3140 Jan, [facility] [place] [facility] [address] [id number] [place] [address]- 1635 Jan, [facility] [place] [facility] [address] [id number] [place] [address]- 4543 Jan, [facility] [place] [facility] [address] [id number] [place] [address]- 1814 Jan, [facility] [place] [facility] [address] [id number] [place] [address]- 1142 Jan, [facility] [place] [facility] [address] [id number] [place] [address] Jan, [facility] [place] [facility] [address] [id number] [place] [address] Jan, [facility] [place] [facility] [address] [id number] [place] [address] Dec, [facility] [place] [facility] [address] [id number] [place] [address] Dec, [facility] [place] [facility] [address] [id number] [place] [address] Dec, [facility] [place] [facility] [address] [id number] [place] [address] Dec, [facility] [place] [facility] [address] [id number] [place] [address] Dec, [facility] [place] [facility] [address] [id number] [place] [address] Dec, [facility] [place] [facility] [address] [id number] [place] [address] Dec, [facility] [place] [facility] [address] [id number] [place] [address] Dec, [facility] [place] [facility] [address] [id number] [place] [address] Dec, 2013 [facility] [place] [facility] [address] [id number] [place] [address] Dec, 2013 [facility] [place] [facility] [address] [id number] [place] [address] Dec, 2013 [facility] [place] [facility] [address] [id number] [place] [address]- [address] Dec, 2013 [facility] [place] [facility] [address] [id number] [place] [address] Dec, 2013 [facility] [place] [facility] [address] [id number] [facility] [place] [address] Dec, 2013 [facility] [place] [facility] [address] [id number] [place] [address] Dec, 2013 [facility] [place] [facility] [address] [id number] [place] [address]- [address] Dec, [facility] [place] [facility] [address] [id number] [place] [address] Dec, [facility] [place] [facility] [address] [id number] [place] [address] Dec, [facility] [place] [facility] [address] [id number] [place] [address]- [address] Nov, [facility] [place] [facility] [address] [id number] [place] [address]- [address] Nov, [facility] [place] [facility] [address] [id number] [place] [address] Nov, [facility] [place] [facility] [address] [id number] [place] [address] Nov, [facility] [place] [facility] [address] [id number] [place] [address] 16 Nov, 2013 [facility] [place] [facility] [address] [id number] [place] [address] Nov, [facility] [place] [facility] [address] [id number] [place] [address] Nov, [facility] [place] [facility] [address] [id number] [place] [address]- [address] Nov, [facility] [place] [facility] [address] [id number] [place] [address]- [address] Nov, [facility] [place] [facility] [address] [id number] [place] [address]- [address] Nov, [facility] [place] [facility] [address] [id number] [place] [address]- [address] Nov, [facility] [place] [facility] [address] [id number] [place] [address] Nov, [facility] [place] [facility] [address] [id number] [place] [address] Nov, [facility] [place] [facility] [address] [id number] [place] [address] Nov, [facility] [place] [facility] [address] [id number] [place] [address] Nov, [facility] [place] [facility] [address] [id number] [place] [address] Nov, [facility] [place] [facility] [address] [id number] [place] [address] Nov, [facility] [place] [facility] [address] [id number] [address] Nov, [facility] [place] [facility] [address] [id number] [place] [address] 116[address] Nov, [facility] [place] [facility] [address] [id number] [place] [address]99 Nov, [facility] [place] [facility] [address] [id number] [place] [address] 50[address] October, [facility] [place] [facility] [address] [id number] [place] [address] October, [facility] [address] [id number] [place] [address] 78[address] October, [facility] [address] [id number] [place] [address] 7[address] October, [facility] [address] [id number] [place] [address] 17[address] Sep, [facility] [address] [id number] [place] [address]- [address] Sep, [facility] [address] [id number] [place] [address] 7[address] Sep, [facility] [address] [id number] [place] [address]- 4031 Sep, [facility] [address] [id number] [place] [address]- 9127 Sep, [facility] [address] [id number] [place] [address]- 6020 Sep, [facility] [address] [id number] [place] [address]- 6[address] Sep, [facility] [address] [id number] [place] [address]- 4126 Sep, [facility] [address] [id number] [place] [address]- 7039 Sep, [facility] [address] [id number] [place] [address]- 0511 Aug, [facility] [place] [facility] [address] [id number] [place] [address]- 7464 Aug, [facility] [place] [facility] [address] [id number] [place] [address] 36[address] Aug, [facility] [place] [facility] [address] [id number] [place] [address]- 0406 Aug, [facility] [place] [facility] [address] [id number] [place] [address]- 4[address] Aug, [facility] [place] [facility] [address] [id number] [place] [address]- 0951 Aug, [facility] [place] [facility] [address] [id number] [place] [address]- 1656 Aug, [facility] [place] [facility] [address] [id number] [place] [address]- 9531 Aug, [facility] [place] [facility] [address] [id number] [place] [address]- 29[address] Jul, [facility] [place] [facility] [address] [id number] [place] [address]- 8071 Jul, [facility] [place] [facility] [address] [id number] [place] [address]- 5319 Jun, [facility] [place] [facility] [address] [id number] [place] [address]- 5309 Jun, [facility] [place] [facility] [address] [id number] [place] [address]- 7856 Jun, [facility] [place] [facility] [address] [id number] [place] [address]- 4092 Jun, [facility] [place] [facility] [address] [id number], [place] [address]- [address] Jun, [facility] [place] [facility] [address] [id number], [place] [address]- 7[address] Jun, [facility] [place] [facility] [address] [id number] [place] [address]- 1227 Jun, [facility] [place] [facility] [address] [id number] [place] [address]- 4318 Jun, [facility] [place] [facility] [address] [id number], [place] [address]- 56[address] Jun, [facility] [place] [facility] [address] [id number], [place] [address]- 1501 Jun, [facility] [address] [id number] [place] [address]- 9885 Jun, [facility] [address] [id number] [place] [address]- 7858 Jun, [facility] [address] [facility]NOTE [facility] [id number] [place] [address] May, [facility] [address] [id number] [place] [address]- 1058 May, [facility] [address] [id number] [place] [address] May, [facility] [address] [id number] [place] [address]- 0400 May, [facility] [address] [id number] [place] [address]- 5326 May, [facility] [address] [id number] [place] [address]- 6355 May, [facility] [address] [id number] [place] [address]- 1157 26 May, 2013 [facility] [address] [id number] [place] [address]- 7352 May, [facility] [address] [id number] [place] [address]- 2777 23 May, 2013 [facility] [place] [facility] [address] [id number], [place] [address]- [address] 16 May, 2013 [facility] [place] [facility] [address] [id number] [place] [address]- 7817 16 May, 2013 [facility] [place] [facility] [address] [id number] [place] [address] 16 May, 2013 [facility] [place] [facility] [address] [facility]NOTE [facility]] [id number] [place] [address]- 1898 16 May, 2013 [facility] [place] [facility] [address] [id number] [place] [address]- 2835 Apr, [facility] [place] [facility] [address] [id number] [place] [address]- 6388 Apr, [facility] [place] [facility] [address] [id number] [place] [address]- 1373 Mar, [facility] [place] [facility] [address] [id number] [place] [address]- 6636 Mar, [facility] [place] [facility] [address] [id number] [place] [address]- 7732 Feb, [facility] [place] [facility] [address] [id number] [place] [address]- 4239 Feb, [facility] [place] [facility] [address] [id number] [place] [address]- 9090 Feb, [facility] [place] [facility] [address] [id number] [place] [address]- 1914 Feb, [facility] [place] [facility] [address] [id number] [place] [address]- 9371 Jan, [facility] [place] [facility] [address] [id number] [place] [address]- 9160 Jan, [facility] [place] [facility] [address] [id number] [place] [address]- 7512 Jan, [facility] [place] [facility] [address] [id number] [place] [address]- 7422 Jan, [facility] [place] [facility] [address] [id number] [place] [address]- 2415 Jan, [facility] [place] [facility] [address] [id number] [place] [address] Jan, [facility] [place] [facility] [address] [id number] [place] [address]- 1156 Dec, [facility] [place] [facility] [address] [id number] [place] [address]- 7828 Dec, [facility] [address] [id number] [place] [address]- 6079 Dec, [facility] [place] [facility] [address] [id number] [place] [address]- 1998 Dec, [facility] [address] [id number] [place] [address]- 1396 Nov, [facility] [place] [facility] [address] [id number] [place] [address]- 4195 October, [facility] [address] [id number] [place] [address]- 5918 October, [facility] [address] [id number] [place] [address]- 6678 October, [facility] [address] [id number] [place] [address]- 1240 Sep, [facility] [place] [facility] [address] [id number] [place] [address]- 0086 Sep, [facility] [place] [facility] [address] [id number] [place] [address]- 6989 Jun, [facility] [place] [facility] [address] [id number] [place] [address]- 6172 Jun, [facility] [place] [facility] [address] [id number], [place] [address]- 1213 Jun, [facility] [place] [facility] [address] [id number], [place] [address]- 6399 Apr, [facility] [place] [facility] [address] [id number] [place] [address]- 1264 Apr, [facility] [place] [facility] [address] [id number] [place] [address]- 3125 Apr, [facility] [place] [facility] [address] [id number] [place] [address]- 0036 Apr, [facility] [place] [facility] [address] [id number] [place] [address]- 8685 Mar, [facility] [place] [facility] [address] [id number] [place] [address]- 3958 Mar, [facility] [place] [facility] [address] [id number] [place] [address] Mar, [facility] [place] [facility] [address] [id number] [place] [address]- 5906 Mar, [facility] [place] [facility] [address] [id number] [place] [address]- 2595 29 Feb, 2012 [facility] [place] [facility] [address] [id number] [place] [address]- 6348 Feb, [facility] [place] [facility] [address] [id number] [place] [address]- 4896 Feb, [facility] [place] [facility] [address] [id number] [place] [address]- 0348 Jan, [facility] [place] [facility] [address] [id number] [place] [address]- 2482 Jan, [facility] [place] [facility] [address] [id number] [place] [address]- 0430 Jan, [facility] [place] [facility] [address] [facility]NOTE 3] [id number] [place] [address]- 0565 Jan, [facility] [place] [facility] [address] [id number] [place] [address]- 4698 Dec, [facility] [place] [facility] [address] [id number] [place] [address]- 4197 Dec, [facility] [place] [facility] [address] [id number] [place] [address]- 4284 Nov, [facility] [place] [facility] [address] [id number] [place] [address]- 2559 Nov, [facility] [place] [facility] [address] [id number] [place] [address]- 2463 October, [facility] [place] [facility] [address] [id number] [place] [address]- 3478 October, [facility] [place] [facility] [address] [id number] [place] [address]- 8645 October, [facility] [place] [facility] [address] [id number] [place] [address]- 1385 Sep, [facility] [place] [facility] [address] [id number] [place] [address]- 4014 Sep, [facility] [place] [facility] [address] [id number] [place] [address]- 9496 Sep, [facility] [place] [facility] [address] [id number] [place] [address]- 9873 Aug, [facility] [place] [facility] [address] [id number] [place] [address]- 7163 Aug, [facility] [place] [facility] [address] [id number] [place] [address]- 1418 Aug, [facility] [place] [facility] [address] [id number] [place] [address]- 4669 Aug, [facility] [place] [facility] [address] [id number] [place] [address]- 8858 Aug, [facility] [place] [facility] [address] [id number] [place] [address]- 3126 Jul, [facility] [place] [facility] [address] [id number] [place] [address]- 0195 16 Jul, 2011 [facility] [place] [facility] [address] [id number] [place] [address]- 5149 Jul, [facility] [place] [facility] [address] [id number] [place] [address]- 2626 Jul, [facility] [place] [facility] [address] [id number] [place] [address]- 7788 Jul, [facility] [place] [facility] [address] [id number] [place] [address]- 9264 06 Jul, 2011 [facility] [place] [facility] [address] [id number] [place] [address]- 9506 Jul, [facility] [place] [facility] [address] [id number] [place] [address]- 1514 Jul, [facility] [place] [facility] [address] [id number] [place] [address]- 7942 Jun, [facility] [place] [facility] [address] [id number] [place] [address]- 5266 Jun, [facility] [place] [facility] [address] [id number] [place] 1309 May, [facility] [place] [facility] [address] [id number] [place] [address]- 9646 May, [facility] [place] [facility] [address] [facility]NOTE 3] [id number] [place] [address]- 4940 May, [facility] [place] [facility] [address] [id number] [place] [address]- 0423 May, [facility] [place] [facility] [address] [facility]NOTE 3] [id number] [place] [address]- 8916 Apr, [facility] [place] [facility] [address] [facility]NOTE 3] [id number] [place] [address]- 1638 Apr, [facility] [place] [facility] [address] [facility]NOTE 3] [id number] [place] [address]- 1909 Apr, [facility] [place] [facility] [address] [id number] [address]- 3563 Mar, [facility] [place] [facility] [address] [id number] [place] [address]- 7831 Mar, [facility] [place] [facility] [address] [facility]NOTE 3] [id number] [place] [address]- 6767 Mar, [facility] [place] [facility] [address] [id number] [address] Mar, [facility] [address] [id number], [place] [address]- 6374 Dec, [facility] [address] [facility][NOTE 3] [id number], [place] [address]- 6777 October, [facility] [address] [facility]NOTE 3] [id number] [address]- 0287 May, [facility] [address] [facility][NOTE 3] [id number], [place] [address]- 5406 May, [facility] [address] [id number] 7833 May, [facility] [address] [facility][NOTE 3] [id number], [place] [address]- 5101 May, [facility] [address] [facility][NOTE 3] [id number][place] 5931 Mar, [facility] [address] [facility][NOTE 3] [id number], [place] [address]- 2429 Mar, [facility] [address] [facility][NOTE 3] [id number], [place] [address]- 1385 May, [facility] [address] [id number], [place] [address]- 9985 May, [facility] [id number], [place] [address]- 2475 May, [facility] [address] [facility][NOTE 3] [id number], [place] [address]- 5361 May, [facility] [address] [facility][NOTE 3] [id number], [place] [address]- 5052 Apr, [facility] [address] [facility][NOTE 3] [id number] [address]- 6717 Apr, [facility] [address] [facility][NOTE 3] [id number], [place] [address]- 7142 October, IMMUNIZATIONS No Known Immunizations SOCIAL HISTORY Never Assessed REASON FOR VISIT Multiple PCPs PLAN OF CARE VITAL SIGNS MEDICATIONS Unknown [...]
--- OUTSIDE RECORDS SUMMARY | 2018-03-17 11:18 | XMS REPORT ---
Author Author RASHEED RAHMAN [facility] Address [address] [place] [address] Care Team Providers Care Deputy County Attorney Name Role Phone RASHEED RAHMAN Unavailable PROBLEMS Type Condition ICD9-CM Code OOM09-XG Code Onset Dates Condition Status SNOMED Code Problem Other chronic pain G89.29 Active 31727816 Problem On home oxygen therapy Z99.81 Active 440042734556 Problem Mild chronic obstructive pulmonary disease J44.9 Active 632327363 Problem COPD (chronic obstructive pulmonary disease) with chronic bronchitis J44.9 Active 446346450 Problem History of illicit drug use Z87.898 Active 544314435 Problem COPD exacerbation J44.1 Active 334400240 Problem Neuropathy G62.9 Active 731199328 Problem Essential hypertension I10 Active 90445713 Problem 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 Active 75332826 Problem Major depressive disorder, recurrent episode, moderate F33.1 Active 901854268 Problem Impaired circulation I99.9 Active 64756856 Problem 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 Active 11137910 Problem Snoring R06.83 Active 99843376 Problem MRSA (methicillin resistant staph aureus) culture positive Z22.322 Active 780060409 Problem Fatigue R53.83 Active 09462949 Problem Varicose veins of both lower extremities I83.93 Active 05868315 Problem Dysthymic disorder F34.1 Active 19175948 Problem Upper respiratory tract infection, unspecified type J06.9 Active 42720615 Problem Panic disorder without agoraphobia F41.0 Active 80740418 Problem Mild persistent asthma without complication J45.30 Active 267397941 ALLERGIES Substance Reaction Event Type Date Status Sulfamethoxazole-Trimethoprim Unknown Drug Allergy Aug, Active Codeine Phosphate swelling Drug Allergy Aug, Active ENCOUNTERS Encounter Location Date Diagnosis [facility] [address] [facility] [id number] [address] Feb, [place] [id number] [place] [address] 70290- 8441 Dec, History of illicit drug use Z87.898 ; Neuropathy G62.9 ; COPD (chronic obstructive pulmonary disease) with chronic bronchitis J44.9 and Acute pain of right knee M25.561 [place] [id number] [place] [address] 95536- 9650 Nov, [place] [address] [address]157- 0025 Nov, Onychomycosis B35.1 and Contusion of left foot, subsequent encounter S90.32XD [address] [address]- [address] Nov, COPD exacerbation J44.[address] 0[address]72- 0941 Sep, [place] [address] [address]37- 2108 Sep, Dysthymic disorder F34.1 ; Tobacco abuse Z72.0 ; Pain in right knee M25.561 ; Pain in left knee M25.562 ; Other chronic pain G89.29 and BMI 40.0-44.9, adult Z68.41 [place] [id number] [place] [address] 87788- 7470 Aug, Major depressive disorder, recurrent episode, moderate F33.1 and 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 [place] [id number] [place] [address] 69170- 1608 Aug, Dysthymic disorder F34.1 ; Non-pressure chronic ulcer of left thigh, unspecified ulcer stage L97.129 ; Tobacco abuse Z72.0 ; Mild chronic obstructive pulmonary disease J44.9 and Forgetfulness R68.89 [place] [id number] [place] [address] 24934- 4428 Aug, Onychomycosis B35.1 ; Fissure in skin of foot R23.4 and Foot callus L84 [facility] [id number] [place] [address] 66719 -8594 Jul, Right medial knee pain M25.561 ; Upper respiratory tract infection, unspecified type J06.9 and BMI 40.0-44.9, adult Z68.41 [facility] [id number] [place] [address] 04290 -2873 Jul, Nausea and vomiting, intractability of vomiting not specified, unspecified vomiting type R11.2 ; Left ear pain H92.02 and Gastric pain R10.9 [place] [address] 26039- 4335 Apr, Encounter for immunization Z23 [place] [address] 05338- 4787 Apr, Onychomycosis B35.1 ; Xerosis of skin L85.3 ; Neuropathy G62.9 and 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 [place] [id number] [place] [address] 56744- 6787 Jan, Onychomycosis B35.1 and Neuropathy G62.9 [facility] [id number] [place] [address] 27218- 1789 Dec, [place] [id number] [place] [address] 90829- 5799 Dec, [facility] [id number] [place] [address] 35439- 8586 Nov, [place] [id number] [place] [address] 80426- 4448 Aug, [facility] [id number] [place] [address] 31903- 8580 Aug, [facility] [id number] [place] [address] 11973- 8448 Jul, [facility] [address] [address]- 6278 Jul, [facility] [address] [place] [address] 95028- 2446 17 Jul, 2016 Decubitus ulcer of left thigh, stage 2 L89.892 [facility] [address] [address]- 7776 17 Jul, 2016 Decubitus ulcer of left thigh, stage 2 L89.892 [facility] [address] [address]- 0346 17 Jul, 2016 [facility] [id number] [place] [address] 13621- 5826 15 Jul, 2016 Decubitus ulcer of left thigh, stage 2 L89.892 [facility] [address] [place] [address] 16612- 0760 14 Jul, 2016 [facility] [address] [place] [address] 63657- 0991 13 Jul, 2016 Cellulitis of other specified site L03.818 ; Illicit drug use F19.90 and Decubitus ulcer of left thigh, stage 2 L89.892 [facility] [address] [address]- 6937 08 Jul, 2016 [facility] [address] [place] [address] 62057- 3534 Jul, Cellulitis of right breast N61.0 [facility] [address] [address]- 7466 Jun, [facility] [address] [place] [address] 34303- 2236 Jun, [facility] [address] [address]- 6878 Jun, Wheezing R06.2 and Arthralgia, unspecified joint M25.50 [facility] [id number] [place] [address] 48171- 3595 30 May, 2016 [facility] [id number] [place] [address] 21588- 8362 May, [facility] [id number] [place] [address] 61468- 2659 May, [facility] [address] 33178- 5986 05 May, 2016 Shortness of breath R06.02 [facility] [id number] [place] [address] 32345- 0525 02 May, 2016 Onychomycosis B35.1 and Fissure in skin of foot R23.4 [place] [id number] [place] [address] 25139- 1471 28 Apr, [address] [facility] [id number] [place] [address] 66626 -2743 18 Apr, 2016 Dizziness R42 [facility] [id number] [place] [address] 18527- 8959 14 Apr, 2016 Shortness of breath R06.02 ; Essential hypertension I10 ; Dizziness R42 and On home oxygen therapy Z99.81 [facility] [id number] [place] [address] 52317- 1032 Apr, [facility] [id number] [place] [address] 72203- 3150 08 Apr, 2016 [facility] [id number] [place] [address] 35832- 9424 Apr, [facility] [id number] [place] [address] 16658- 5348 04 Apr, 2016 [facility] [id number] [place] [address] 32465- 7317 Apr, [facility] [id number] [place] [address] 42026- 2183 Apr, [facility] [address] [place] [address] 70108- 0339 Apr, [facility] [id number] [place] [address] 37142- 6037 Mar, Mild chronic obstructive pulmonary disease J44.9 [facility] [id number] [place] [address] 44026- 9843 Mar, [facility] [id number] [place] [address] 97376- 7290 Mar, Epigastric pain R10.13 ; Low back pain M54.5 ; Other chronic pain G89.29 and Breast cancer screening Z12.39 [place] [id number] [place] [address] 36040- 3884 Mar, [place] [id number] [place] [address] 60052- 6224 Mar, [facility] [id number] [place] [address] 30864- 9118 Feb, [facility] [id number] [place] [address] 18495- 7442 Feb, [facility] [id number] [place] [address] 89457- 4128 Feb, Fissure in skin of foot R23.4 and Onychomycosis B35.1 [place] [address] [place] [address] 34137- 1490 Jan, 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 [place] [id number] [place] [address] 08824- 2746 Dec, 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 [place] [id number] [place] [address] 80409- 7787 Dec, Mild persistent asthma without complication J45.30 ; Dysthymic disorder F34.1 and Upper respiratory tract infection, unspecified type J06.9 [place] [address] [address]- 2302 Nov, 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 [facility] [id number] [place] [address] 47556- 9324 October, 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 [facility] [address] [place] [address] 13945- 6018 Sep, Panic disorder without agoraphobia F41.0 ; 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 and Dysthymic disorder F34.1 [facility] [address] [place] [address] 52195- 5165 Sep, Panic attacks F41.0 [facility] [id number] [place] [address] 23705- 5051 Sep, [facility] [id number] [place] [address] 97184- 7274 Sep, Panic disorder without agoraphobia F41.0 ; Varicose veins of both lower extremities I83.93 and Fatigue R53.83 [facility] [address] [place] [address] 33822- 4419 Sep, Fatigue R53.83 [facility] [address] [place] [address] 09520- 8113 Sep, [facility] [address] [place] [address] 77557- 6729 Aug, [facility] [address] [address]- 9166 Aug, [facility] [address] [place] [address] 11732- 7208 Aug, Panic disorder without agoraphobia F41.0 ; 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 and Dysthymic disorder F34.1 [facility] [address] [address]- 7281 Aug, 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 [place] [address] [place] [address] 46907- 3912 Aug, Shortness of breath R06.02 ; Panic attacks F41.0 ; COPD ( chronic obstructive pulmonary disease) J44.9 ; Tobacco abuse Z72.0 ; Family history of diabetes mellitus Z83.3 and Weight gain R63.[address] 35139- 4789 Aug, [place] [id number] [place] [address] 16978- 9373 Jul, [address] 00052- 7371 Jun, Onychomycosis B35.1 ; Neuropathy G62.9 and Impaired circulation I99.[address] 51158- 5215 Mar, Fissure in skin of foot R23.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 [place] [id number] [place] [address] 90180- 1259 Feb, Family history of coronary arteriosclerosis V17.3 [place] [id number] [place] [address] 39764- 8578 15 Feb, 2015 Allergic rhinitis due to pollen 477.0 ; Unspecified breast screening V76.10 ; Anxiety 300.00 and Family history of coronary arteriosclerosis V17.3 [place] [id number] [place] [address] 76601- 6767 Jan, [place] [address] 38368- 2656 Dec, [place] [id number] [place] [address] 56371- 7427 Dec, Onychomycosis 110.1 and Skin fissures 709.[address] [place] [address]- 8074 14 Sep, 2014 [facility] [address] [id number] [place] [address]- 8440 Sep, [facility] [place] [facility] [address] [id number] [place] [address]- 6395 Aug, [facility] [place] [facility] [address] [id number] [place] [address]- 8439 Aug, [facility] [place] [facility] [address] [id number] [place] [address]- 8181 Jul, [facility] [place] [facility] [address] [id number] [place] [address]- 0596 Jul, [facility] [place] [facility] [address] [id number] [place] [address]- 4280 Jun, [facility] [place] [facility] [address] [id number] [place] [address]- 3568 Jun, [facility] [address] [id number] [place] [address]- 9744 Jun, [facility] [place] [facility] [address] [id number] [place] [address]- 4243 Jun, [facility] [address] [id number] [place] [address]- 3027 Jun, [facility] [place] [facility] [address] [id number] [place] [address]- 6192 May, [facility] [place] [facility] [address] [id number] [place] 4825 May, [facility] [place] [facility] [address] [id number] [place] [address]- 8355 May, [facility] [place] [facility] [address] [id number] [place] [address]- 5676 May, [facility] [place] [facility] [address] [id number] [place] [address]- 3158 May, [facility] [place] [facility] [address] [id number] [place] [address]- 7033 May, [facility] [place] [facility] [address] [id number] [place] [address]- 2149 May, [facility] [place] [facility] [address] [id number] [place] [address]- 4697 May, [facility] [place] [facility] [address] [id number] [place] [address]- 5669 Apr, [facility] [place] [facility] [address] [id number] [place] [address]- 0060 Apr, [facility] [place] [facility] [address] [id number] [place] [address]- 5249 Apr, [facility] [place] [facility] [address] [id number] [place] [address]- 6901 Apr, [facility] [place] [facility] [address] [id number] [place] [address]- 6542 Apr, [facility] [place] [facility] [address] [id number] [place] [address]- 0077 Apr, [facility] [place] [facility] [address] [id number] [address]- 1969 Apr, [facility] [place] [facility] [address] [id number] [address]- 5108 Apr, [facility] [place] [facility] [address] [id number] [address]- 5046 Apr, [facility] [place] [facility] [address] [id number] [place] [address]- 6293 Apr, [facility] [place] [facility] [address] [id number] [place] [address]- 0684 Mar, [facility] [place] [facility] [address] [id number] [place] [address]- 8976 Mar, [facility] [place] [facility] [address] [id number] [place] [address]- 5941 Mar, [facility] [place] [facility] [address] [id number] [place] [address]- 7191 Mar, [facility] [place] [facility] [address] [id number] [place] [address]- 8511 Mar, [facility] [place] [facility] [address] [id number] [place] [address]- 2937 Mar, [facility] [place] [facility] [address] [id number] [place] [address]- 7792 Mar, [facility] [place] [facility] [address] [id number] [place] [address]- 2433 Mar, [facility] [place] [facility] [address] [id number] [place] [address]- 5118 24 Mar, 2014 [facility] [place] [facility] [address] [id number] [place] [address]- 1261 Mar, [facility] [place] [facility] [address] [id number] [place] [address]- 1565 Mar, [facility] [place] [facility] [address] [id number] [place] [address]- 2019 Mar, [facility] [place] [facility] [address] [id number] [place] [address]- 4305 Mar, [facility] [place] [facility] [address] [id number] [place] [address]- 4967 Mar, [facility] [place] [facility] [address] [id number] [place] [address]- 5679 22 Mar, 2013 [facility] [place] [facility] [address] [id number] [place] [address]- 1412 20 Mar, 2014 [facility] [place] [facility] [address] [id number] [place] [address]- 5902 20 Mar, 2013 [facility] [place] [facility] [address] [id number] [place] [address]- 1626 16 Mar, 2013 [facility] [place] [facility] [address] [id number] [place] [address]- 8088 16 Mar, 2013 [facility] [place] [facility] [address] [id number] [place] [address]- 6440 15 Mar, 2014 [facility] [place] [facility] [address] [id number] [place] [address]- 4278 14 Mar, 2014 [facility] [place] [facility] [address] [id number] [place] [address]- 7569 14 Mar, 2014 [facility] [place] [facility] [address] [id number] [place] [address]- 2221 14 Mar, 2014 [facility] [place] [facility] [address] [id number] [place] [address]- 3949 14 Mar, 2014 [facility] [place] [facility] [address] [id number] [place] [address]- 6983 09 Mar, 2014 [facility] [place] [facility] [address] [id number] [place] [address]- 8525 09 Mar, 2013 [facility] [place] [facility] [address] [id number] [place] [address]- 4710 09 Mar, 2014 [facility] [place] [facility] [address] [id number] [place] [address]- 0509 09 Mar, 2013 [facility] [place] [facility] [address] [id number] [place] [address]- 5356 30 Feb, 2013 [facility] [place] [facility] [address] [id number] [place] [address]- 6714 30 Sep, 2013 [facility] [place] [facility] [address] [id number] [place] [address]- 1641 30 Sep, 2013 [facility] [place] [facility] [address] [id number] [place] [address]- 8194 30 Sep, 2013 [facility] [place] [facility] [address] [id number] [place] [address]- 6802 26 Sep, 2013 [facility] [place] [facility] [address] [id number] [place] [address]- 2349 Feb, 2013 [facility] [place] [facility] [address] [id number] [place] [address]- 3210 Feb, 2013 [facility] [place] [facility] [address] [id number] [place] [address]- 2390 Feb, 2013 [facility] [place] [facility] [address] [id number] [place] [address]- 2517 Feb, 2013 [facility] [place] [facility] [address] [id number] [place] [address]- 3665 Feb, 2013 [facility] [place] [facility] [address] [id number] [place] [address]- 7627 Feb, 2013 [facility] [place] [facility] [address] [id number] [place] [address]- 5880 Feb, 2013 [facility] [place] [facility] [address] [id number] [place] [address]- 5935 Jan, [facility] [place] [facility] [address] [id number] [place] [address]- 5402 Jan, [facility] [place] [facility] [address] [id number] [place] [address]- 2709 Jan, [facility] [place] [facility] [address] [id number] [place] [address]- 1976 Jan, [facility] [place] [facility] [address] [id number] [place] [address]- 1599 Jan, [facility] [place] [facility] [address] [id number] [place] [address]- 0939 Jan, [facility] [place] [facility] [address] [id number] [place] [address]- 3184 Jan, [facility] [place] [facility] [address] [id number] [place] [address]- 8834 Jan, [facility] [place] [facility] [address] [id number] [place] [address]- 6070 Jan, [facility] [place] [facility] [address] [id number] [place] [address]- 7480 Jan, [facility] [place] [facility] [address] [id number] [place] [address]- 8113 Jan, [facility] [place] [facility] [address] [id number] [place] [address]- 2704 Jan, [facility] [place] [facility] [address] [id number] [place] [address] Jan, [facility] [place] [facility] [address] [id number] [place] [address] Dec, [facility] [place] [facility] [address] [id number] [place] [address] Dec, [facility] [place] [facility] [address] [id number] [place] [address] Dec, [facility] [place] [facility] [address] [id number] [place] [address] Dec, [facility] [place] [facility] [address] [id number] [place] [address] Dec, [facility] [place] [facility] [address] [id number] [place] [address] Dec, [facility] [place] [facility] [address] [id number] [place] [address] Dec, [facility] [place] [facility] [address] [id number] [place] [address] Dec, [facility] [place] [facility] [address] [id number] [place] [address] Dec, [facility] [place] [facility] [address] [id number] [place] [address] Dec, [facility] [place] [facility] [address] [id number] [place] [address] Dec, [facility] [place] [facility] [address] [id number] [place] [address] Dec, [facility] [place] [facility] [address] [id number] [place] [address] Dec, 2013 [facility] [place] [facility] [address] [id number] [place] [address] Dec, 2013 [facility] [place] [facility] [address] [id number] [place] [address] Dec, 2013 [facility] [place] [facility] [address] [id number] [place] [address] Dec, 2013 [facility] [place] [facility] [address] [id number] [place] [address]- [address] Dec, [facility] [place] [facility] [address] [id number] [place] [address] Dec, [facility] [place] [facility] [address] [id number] [place] [address] Nov, [facility] [place] [facility] [address] [id number] [place] [address] Nov, [facility] [place] [facility] [address] [id number] [place] [address]- [address] Nov, [facility] [place] [facility] [address] [id number] [place] [address]- [address] Nov, [facility] [place] [facility] [address] [id number] [place] [address]- [address] Nov, [facility] [place] [facility] [address] [id number] [place] [address] Nov, [facility] [place] [address] [id number] [place] [address] Nov, [facility] [place] [address] [id number] [place] [address]- [address] Nov, [facility] [place] [facility] [address] [id number] [place] [address]- [address] Nov, [facility] [place] [facility] [address] [id number] [place] [address] Nov, [facility] [address] [id number] [place] [address]- [address] Nov, [facility] [place] [facility] [address] [id number] [place] [address]- [address] Nov, [facility] [address] [id number] [place] [address] Nov, [facility] [place] [address] [id number] [place] [address] Nov, [facility] [place] [facility] [address] [id number] [place] [address] Nov, [facility] [place] [address] [id number] [place] [address] Nov, [facility] [place] [address] [id number] [place] [address]- [address] Nov, [facility] [place] [facility] [address] [id number] [place] [address] Nov, [facility] [address] [id number] [place] [address] Nov, [facility] [place] [facility] [address] [id number] [place] [address] Nov, [facility] [place] [facility] [address] [id number] [place] [address] October, [facility] [place] [facility] [address] [id number] [place] [address] October, [facility] [place] [facility] [address] [id number] [place] [address] October, [facility] [place] [facility] [address] [id number] [place] [address] 38[address] October, [facility] [place] [facility] [address] [id number] [place] [address] Sep, [facility] [place] [facility] [address] [id number] [place] [address] Sep, [facility] [place] [facility] [address] [id number] [place] [address] 80[address] Sep, [facility] [place] [facility] [address] [id number] [place] [address] Sep, [facility] [place] [facility] [address] [id number] [place] [address] Sep, [facility] [place] [facility] [address] [id number] [place] [address] Sep, [facility] [place] [facility] [address] [id number] [place] [address] 39[address] Sep, [facility] [place] [facility] [address] [id number] [place] [address] Sep, [facility] [place] [facility] [address] [id number] [place] [address] Sep, [facility] [place] [facility] [address] [id number] [place] [address]- 68[address] Aug, [facility] [place] [facility] [address] [id number] [place] [address]- 0783 Aug, [facility] [place] [facility] [address] [id number] [place] [address]- 0440 Aug, [facility] [place] [facility] [address] [id number] [place] [address] 8682 Aug, [facility] [place] [facility] [address] [id number] [place] [address]157 Aug, [facility] [place] [facility] [address] [id number] [place] [address] 65[address] Aug, [facility] [place] [facility] [address] [id number] [place] [address] 1396 Aug, [facility] [place] [facility] [address] [id number] [place] [address]- 4770 Aug, [facility] [place] [facility] [address] [id number] [place] [address]- 8986 Jul, [facility] [place] [facility] [address] [id number] [place] [address]- 0890 Jul, [facility] [place] [facility] [address] [id number] [place] [address]- 8840 Jun, [facility] [place] [facility] [address] [id number] [place] [address]- 7681 Jun, [facility] [place] [facility] [address] [id number] [place] [address]- 7860 Jun, [facility] [place] [facility] [address] [id number] [place] [address]- [address] Jun, [facility] [place] [facility] [address] [id number] [place] [address]- 7889 Jun, [facility] [place] [facility] [address] [id number] [place] [address]- 4683 Jun, [facility] [place] [facility] [address] [id number] [place] [address]- 7845 Jun, [facility] [place] [facility] [address] [id number] [place] [address]- 2492 Jun, [facility] [place] [facility] [address] [id number] [address] 70[address] Jun, [facility] [place] [facility] [address] [id number] [place] [address] 7[address] Jun, [facility] [place] [facility] [address] [id number] [place] [address]- 4628 Jun, [facility] [place] [facility] [address] [id number] [place] [address]- 2967 Jun, [facility] [place] [facility] [address] [id number] [place] [address]- 7916 May, [facility] [place] [facility] [address] [id number] [place] [address]- 2139 31 May, 2013 [facility] [address] [id number] [place] [address]- 7630 31 May, 2013 [facility] [place] [facility] [address] [id number] [place] [address]- 5714 31 May, 2013 [facility] [address] [id number] [place] [address]- 8263 31 May, 2012 [facility] [place] [facility] [address] [id number] [place] [address]- 0457 31 May, 2013 [facility] [address] [id number] [place] [address] 26 May, 2013 [facility] [place] [facility] [address] [id number] [place] [address]- 9989 May, [facility] [address] [id number] [place] [address]- 2442 May, [facility] [place] [facility] [address] [id number] [place] [address]- 9128 16 May, 2013 [facility] [place] [facility] [address] [id number] [place] [address]- 1759 16 May, 2013 [facility] [place] [facility] [address] [facility] [id number] [place] [address]- 7384 16 May, 2013 [facility] [place] [facility] [address] [id number] [place] [address]- 0734 May, [facility] [place] [facility] [address] [id number] [place] [address] 3987 Apr, [facility] [place] [facility] [address] [id number] [place] [address]- 4344 Apr, [facility] [place] [facility] [address] [facility] [id number] [place] [address]- 3092 Mar, [facility] [place] [facility] [address] [id number] [place] [address]- 3382 Mar, [facility] [place] [facility] [address] [id number] [place] [address]- 9653 Feb, [facility] [place] [facility] [address] [id number] [place] [address]- 7830 Feb, [facility] [place] [facility] [address] [id number] [place] [address]- 7231 Feb, [facility] [place] [facility] [address] [id number] [place] [address]- 8037 Feb, [facility] [place] [facility] [address] [id number] [place] [address] 8467 Jan, [facility] [place] [facility] [address] [id number] [place] [address]- 0688 Jan, [facility] [place] [facility] [address] [id number] [place] [address]- 0611 Jan, [facility] [place] [facility] [address] [id number] [place] [address]- 4943 Jan, [facility] [place] [facility] [address] [id number] [place] [address]- 4458 Jan, [facility] [place] [facility] [address] [id number] [place] [address]- 6886 Jan, [facility] [place] [facility] [address] [id number] [place] [address] 7780 Dec, [facility] [place] [facility] [address] [id number] [place] [address]- 8479 Dec, [facility] [place] [facility] [address] [id number] [place] [address]- 3586 Dec, [facility] [place] [facility] [address] [id number] [place] [address]- 5724 Dec, [facility] [place] [facility] [address] [id number] [place] [address]- 4283 Nov, [facility] [place] [facility] [address] [id number] [place] [address]- 9519 October, [facility] [place] [facility] [address] [id number] [place] [address]- 5084 October, [facility] [place] [facility] [address] [id number] [place] [address]- 7986 October, [facility] [place] [facility] [address] [id number] [place] [address]- 6013 Sep, [facility] [place] [facility] [address] [id number] [place] [address]- 3214 Sep, [facility] [place] [facility] [address] [id number] [place] [address]- 7865 Jun, [facility] [place] [facility] [address] [id number] [place] [address]- 5439 Jun, [facility] [place] [facility] [address] [id number] [place] [address]- 3296 Jun, [facility] [place] [facility] [address] [id number] [place] [address]- 8668 Apr, [facility] [place] [facility] [address] [id number] [place] [address]- 3449 Apr, [facility] [place] [facility] [address] [id number] [place] [address]- 2445 Apr, [facility] [place] [facility] [address] [id number] [place] [address] 8509 Apr, [facility] [place] [facility] [address] [id number] [place] [address]- 1776 Mar, [facility] [place] [facility] [address] [id number] [place] [address] Mar, [facility] [place] [facility] [address] [id number] [place] [address]- 3579 Mar, [facility] [place] [facility] [address] [id number] [place] [address]- 5030 Mar, [facility] [place] [facility] [address] [id number] [place] [address]- 2374 29 Feb, 2012 [facility] [address] [id number] [place] [address]- 2657 27 Feb, 2012 [facility] [place] [facility] [address] [id number] [place] [address]- 5573 20 Feb, 2012 [facility] [address] [id number] [place] [address]- 2176 30 Jan, 2012 [facility] [address] [id number] [place] [address]- 6689 Jan, [facility] [address] [id number] [place] [address]- 0598 Jan, [facility] [address] [id number] [place] [address]- 0228 Jan, [facility] [address] [id number] [place] [address]- 3278 Dec, [facility] [address] [id number] [place] [address]- 6350 Dec, [facility] [address] [id number] [place] [address]- 9071 Nov, [facility] [address] [id number] [place] [address]- 5491 Nov, [facility] [place] [facility] [address] [id number] [place] [address]- 5848 October, [facility] [address] [id number] [place] [address]- 2348 October, [facility] [place] [facility] [address] [id number] [place] [address]- 8754 October, [facility] [place] [facility] [address] [id number] [place] [address]- 0266 Sep, [facility] [address] [id number] [place] [address]- 7884 Sep, [facility] [place] [facility] [address] [id number] [place] [address]- 1516 03 Sep, 2011 [facility] [place] [facility] [address] [id number] [place] [address]- 5571 27 Aug, 2011 [facility] [place] [facility] [address] [id number] [place] [address]- 4451 26 Aug, 2011 [facility] [place] [facility] [address] [id number] [place] [address]- 5472 15 Aug, 2011 [facility] [place] [facility] [address] [id number] [place] [address]- 8557 15 Aug, 2011 [facility] [place] [facility] [address] [id number] [place] [address]- 0841 07 Aug, 2011 [facility] [place] [facility] [address] [id number] [place] [address]- 9796 23 Jul, 2011 [facility] [place] [facility] [address] [id number] [place] [address]- 8499 16 Jul, 2011 [facility] [place] [facility] [address] [id number] [place] [address]- 4052 13 Jul, 2011 [facility] [place] [facility] [address] [id number] [place] [address]- 5268 09 Jul, 2011 [facility] [place] [facility] [address] [id number] [place] [address]- 2093 07 Jul, 2011 [facility] [place] [facility] [address] [id number] [place] [address]- 5360 06 Jul, 2011 [facility] [place] [facility] [address] [id number] [place] [address]- 0636 03 Jul, 2011 [facility] [place] [facility] [address] [id number] [place] [address]- 4766 Jul, [facility] [place] [facility] [address] [id number] [place] [address]- 3476 Jun, [facility] [place] [facility] [address] [id number] [place] [address]- 2546 Jun, [facility] [address] [id number] [place] [address]- 7284 May, [facility] [place] [facility] [address] [id number] [place] [address]- 2546 May, [facility] [address] [id number] [place] [address]- 2306 May, [facility] [place] [facility] [address] [id number] [place] [address]- 2542 May, [facility] [address] [id number] [place] [address]- 3125 Apr, [facility] [address] [id number] [place] [address]- 6114 Apr, [facility] [address] [id number] [place] [address]- 6250 Apr, [facility] [address] [id number] [place] [address]- 9853 Mar, [facility] [address] [id number] [place] [address]- 8411 Mar, [facility] [address] [id number] [place] [address]- 6373 Mar, [facility] [place] [facility] [address] [id number] [place] [address]- 8103 Mar, [facility] [address] [id number] [place] [address]- 7501 Dec, [facility] [place] [facility] [address] [id number] [place] [address]- 8967 October, [facility] [place] [facility] [address] [id number] [place] [address]- 0756 May, [facility] [place] [facility] [address] [id number] [place] [address]- 3267 May, [facility] [address] [id number] [address]- 4206 May, [facility] [id number] [address] May, [facility] [id number] [address]- 8867 Mar, [facility] [id number] [address]- 0552 Mar, [facility] [id number] [address]- 3965 May, [facility] [id number] [address]- 2907 May, [facility] [id number] [address]- 7894 May, [facility] [id number] [address]- 1383 May, [facility] [id number] [address]- 7265 Apr, [facility] [id number] [address]- 2847 Apr, [facility] [address] [id number] [address]- 9600 October, IMMUNIZATIONS No Known Immunizations SOCIAL HISTORY Never Assessed REASON FOR VISIT Blood Pressure-Debbi MOSS PLAN OF CARE Activity Details Follow Up 4 Weeks Reason:depression VITAL SIGNS Height 64 in 2017-08-22 Weight 240.7 lbs 2017-08-22 Temperature 98.3 degrees Fahrenheit 2017-08-22 Heart Rate 91 bpm 2017-08-22 Respiratory Rate 22 2017-08-22 Oximetry on room air:96 % 2017-08-22 BMI 41.31 kg/m2 2017-08-22 Blood pressure systolic 122 mmHg 2017-08-22 Blood pressure diastolic 80 mmHg 2017-08-22 MEDICATIONS Medication Instructions Dosage Frequency Start Date End Date Duration Status Albuterol Sulfate (2.5 MG/3ML) 0.083% Inhalation every 6 hrs 3 ml as needed 6h Apr, Active Oxygen ... 2L with nasal cannula Active Symbicort 160-4.5 MCG/ACT Inhalation Twice a day 2 puffs 12h 90 days Active Ventolin HFA 108 (90 Base) MCG/ACT Inhalation every 4 hrs 2 puffs as needed 4h Dec, 90 days Active Nebulizer - as directed for use with inhaled medications Mar, lifetime Active Cortisporin 3.5-45530-2 Otic Three times a day 4 drops into affected ear 8h Jul, 05 days Active Ranitidine HCl 150 MG Orally 2 times a day 1 tablet 12h Active Ropinirole HCl 0.5 MG Orally Once a day 1 tablet 1 to 3 hours before bedtime 24h Active Toviaz 4 MG Orally Once a day 1 tablet 24h Active Montelukast Sodium 10 MG Orally Once a day 1 tablet in the evening 24h 90 days Active Gabapentin 300 MG Orally Once a day 1 capsule at bedtime 24h Active Nitrofurantoin Monohyd Macro 100 mg Orally Once a day 1 capsule with supper 24h Active Cyclobenzaprine HCl 10 MG Orally every 6 hrs 1 tablet as needed for spasms 6h Active Simvastatin 40 MG Orally Once a day 1 tablet in the evening 24h 30 Active Fluoxetine HCl 20 mg Orally Once a day 1 capsule in the morning 24h Aug 90 days Active Estradiol 0.5 MG 1 tablet Active Quinapril HCl 20 mg Orally Once a day 2 tablets 24h Active HydrOXYzine HCl 50 mg Orally 2 times a day 1 tablet 12h Active RESULTS No Results PROCEDURES Procedure Date Ordered Result Body Site [facility] ESTABLISHED PATIENT August 22, 2017 INSTRUCTIONS MEDICATIONS ADMINISTERED No Known Medications [...]
--- OUTSIDE RECORDS SUMMARY | 2018-03-17 11:19 | XMS REPORT ---
Author Author ISACC FLORES Organization [facility] Address [address] [place] [address] Care Team Providers Care Material Planner Name Role Phone ISACC FLORES Unavailable PROBLEMS Type Condition ICD9-CM Code NIG85-SC Code Onset Dates Condition Status SNOMED Code Problem Other chronic pain G89.29 Active 13648597 Problem On home oxygen therapy Z99.81 Active 223579933924 Problem Mild chronic obstructive pulmonary disease J44.9 Active 015481251 Problem COPD (chronic obstructive pulmonary disease) with chronic bronchitis J44.9 Active 337644579 Problem History of illicit drug use Z87.898 Active 083551072 Problem COPD exacerbation J44.1 Active 659706580 Problem Neuropathy G62.9 Active 137868861 Problem Essential hypertension I10 Active 33575328 Problem 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 Active 02336889 Problem Major depressive disorder, recurrent episode, moderate F33.1 Active 400816383 Problem Impaired circulation I99.9 Active 42062477 Problem 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 Active 80483260 Problem Snoring R06.83 Active 90369981 Problem MRSA (methicillin resistant staph aureus) culture positive Z22.322 Active 122967418 Problem Fatigue R53.83 Active 43545651 Problem Varicose veins of both lower extremities I83.93 Active 70931475 Problem Dysthymic disorder F34.1 Active 75677915 Problem Upper respiratory tract infection, unspecified type J06.9 Active 64683907 Problem Panic disorder without agoraphobia F41.0 Active 12235431 Problem Mild persistent asthma without complication J45.30 Active 386095428 ALLERGIES No Information ENCOUNTERS Encounter Location Date Diagnosis [facility] [address] [facility] [id number] [address] Feb, [facility] [address] [facility] [id number] [address] Dec, History of illicit drug use Z87.898 ; Neuropathy G62.9 ; COPD (chronic obstructive pulmonary disease) with chronic bronchitis J44.9 and Acute pain of right knee M25.561 [place] [id number] [place] [address] 93681- 4088 Nov, [place] [address] 18772- 5775 Nov, Onychomycosis B35.1 and Contusion of left foot, subsequent encounter S90.32XD [place] [address] [address]35- 1962 Nov, COPD exacerbation J44.1 [place] [address] 15140- 7067 Sep, [place] [address] 09238- 3247 Sep, Dysthymic disorder F34.1 ; Tobacco abuse Z72.0 ; Pain in right knee M25.561 ; Pain in left knee M25.562 ; Other chronic pain G89.29 and BMI 40.0-44.9, adult Z68.41 [place] [id number] [place] [address] 55955- 3623 Aug, Major depressive disorder, recurrent episode, moderate F33.1 and 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 [place] [id number] [place] [address] 17614- 4699 Aug, Dysthymic disorder F34.1 ; Non-pressure chronic ulcer of left thigh, unspecified ulcer stage L97.129 ; Tobacco abuse Z72.0 ; Mild chronic obstructive pulmonary disease J44.9 and Forgetfulness R68.89 [place] [id number] [place] [address] 68408- 8527 09 Aug, 2017 Onychomycosis B35.1 ; Fissure in skin of foot R23.4 and Foot callus L84 [facility] [id number] [place] [address] 42575 -3553 Jul, Right medial knee pain M25.561 ; Upper respiratory tract infection, unspecified type J06.9 and BMI 40.0-44.9, adult Z68.41 [facility] [id number] [place] [address] 28324 -9511 Jul, Nausea and vomiting, intractability of vomiting not specified, unspecified vomiting type R11.2 ; Left ear pain H92.02 and Gastric pain R10.9 [facility] [id number] [place] [address] 55395- 1531 Apr, Encounter for immunization Z23 [facility] [address] [address]- 1276 Apr, Onychomycosis B35.1 ; Xerosis of skin L85.3 ; Neuropathy G62.9 and 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 [facility] [id number] [place] [address] 84968- 9206 Jan, Onychomycosis B35.1 and Neuropathy G62.9 [facility] [id number] [place] [address] 40718- 6825 Dec, [facility] [id number] [place] [address] 82118- 5658 Dec, [facility] [id number] [place] [address] 15480- 9836 Nov, [facility] [id number] [place] [address] 18618- 0902 Aug, [facility] [id number] [place] [address] 26902- 0171 Aug, [facility] [id number] [place] [address] 86826- 0098 Jul, [facility] [id number] [place] [address] 36089- 2472 Jul, [facility] [address] [address] 6[address] 17 Jul, 2016 Decubitus ulcer of left thigh, stage 2 L89.892 [facility] [id number] [place] [address] 74625- 3846 17 Jul, 2016 Decubitus ulcer of left thigh, stage 2 L89.892 [facility] [id number] [place] [address] 89190- 7266 17 Jul, 2016 [facility] [id number] [place] [address] 38024- 8231 15 Jul, 2016 Decubitus ulcer of left thigh, stage 2 L89.892 [facility] [id number] [place] [address] 44917- 3551 14 Jul, 2016 [facility] [address] [place] [address] 97685- 3453 13 Jul, 2016 Cellulitis of other specified site L03.818 ; Illicit drug use F19.90 and Decubitus ulcer of left thigh, stage 2 L89.892 [facility] [address] [place] [address] 62435- 7415 08 Jul, 2016 [facility] [id number] [place] [address] 67661- 1341 06 Jul, 2016 Cellulitis of right breast N61.0 [facility] [address] [place] [address] 93806- 1897 Jun, [facility] [id number] [place] [address] 31662- 6809 Jun, [facility] [id number] [place] [address] 31615- 6590 Jun, Wheezing R06.2 and Arthralgia, unspecified joint M25.50 [facility] [id number] [place] [address] 48888- 6561 May, [facility] [id number] [place] [address] 34096- 0719 May, [facility] [id number] [place] [address] 81399- 2327 May, [facility] [id number] [place] [address] 53485- 5870 05 May, 2016 Shortness of breath R06.02 [facility] [id number] [place] [address] 81292- 1691 02 May, 2016 Onychomycosis B35.1 and Fissure in skin of foot R23.4 [facility] [id number] [place] [address] 93722- 2132 Apr, [facility] [id number] [place] [address] 46583 -1479 18 Apr, 2016 Dizziness R42 [facility] [id number] [place] [address] 68834- 2762 14 Apr, 2016 Shortness of breath R06.02 ; Essential hypertension I10 ; Dizziness R42 and On home oxygen therapy Z99.81 [facility] [id number] [place] [address] 59761- 9434 Apr, [facility] [id number] [place] [address] 81625- 9607 08 Apr, 2016 [facility] [id number] [place] [address] 20563- 5701 Apr, [facility] [id number] [place] [address] 21119- 3592 Apr, [facility] [id number] [place] [address] 12136- 0351 Apr, [facility] [id number] [place] [address] 69070- 0572 Apr, [facility] [id number] [place] [address] 61194- 9432 Apr, [facility] [address] [address]- 4850 Mar, Mild chronic obstructive pulmonary disease J44.9 [facility] [id number] [place] [address] 55637- 7331 Mar, [facility] [id number] [place] [address] 54039- 8865 Mar, Epigastric pain R10.13 ; Low back pain M54.5 ; Other chronic pain G89.29 and Breast cancer screening Z12.39 [facility] [id number] [place] [address] 96043- 5871 Mar, [facility] [id number] [place] [address] 82183- 7075 Mar, [facility] [id number] [place] [address] 47997- 4027 Feb, [facility] [id number] [place] [address] 32043- 2322 Feb, [facility] [id number] [place] [address] 12520- 9713 Feb, Fissure in skin of foot R23.4 and Onychomycosis B35.1 [facility] [id number] [place] [address] 19440- 5009 Jan, 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 [place] [id number] [place] [address] 09130- 6159 Dec, 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 [place] [id number] [place] [address] 79553- 0209 Dec, Mild persistent asthma without complication J45.30 ; Dysthymic disorder F34.1 and Upper respiratory tract infection, unspecified type J06.9 [facility] [address] [address]- 0290 Nov, 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 [facility] [id number] [place] [address] 11766- 5672 October, 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 [facility] [id number] [place] [address] 22342- 2123 Sep, Panic disorder without agoraphobia F41.0 ; 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 and Dysthymic disorder F34.1 [place] [id number] [place] [address] 64262- 4047 Sep, Panic attacks F41.0 [place] [id number] [place] [address] 39531- 6954 Sep, [place] [id number] [place] [address] 06602- 4732 Sep, Panic disorder without agoraphobia F41.0 ; Varicose veins of both lower extremities I83.93 and Fatigue R53.83 [place] [id number] [place] [address] 76737- 5043 Sep, Fatigue R53.83 [place] [id number] [place] [address] 52676- 2456 Sep, [place] [id number] [place] [address] 69878- 4912 Aug, [place] [id number] [place] [address] 47721- 1333 Aug, [facility] [id number] [place] [address] 60025- 9576 Aug, 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 [facility] [id number] [place] [address] 12122- 9154 Aug, Panic disorder without agoraphobia F41.0 ; 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 and Dysthymic disorder F34.1 [place] [id number] [place] [address] 44279- 2131 Aug, Shortness of breath R06.02 ; Panic attacks F41.0 ; COPD ( chronic obstructive pulmonary disease) J44.9 ; Tobacco abuse Z72.0 ; Family history of diabetes mellitus Z83.3 and Weight gain R63.5 [place] [id number] [place] [address] 11356- 7029 Aug, [place] [address] 17945- 5340 Jul, [place] [address] 53590- 4548 Jun, Onychomycosis B35.1 ; Neuropathy G62.9 and Impaired circulation I99.9 [place] [id number] [place] [address] 04437- 5834 Mar, Fissure in skin of foot R23.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 [place] [id number] [place] [address] 29210- 1548 Feb, Family history of coronary arteriosclerosis V17.3 [place] [id number] [place] [address] 82127- 2976 Feb, Allergic rhinitis due to pollen 477.0 ; Unspecified breast screening V76.10 ; Anxiety 300.00 and Family history of coronary arteriosclerosis V17.3 [place] [id number] [place] [address] 62760- 3238 Jan, [place] [id number] [place] [address] 76484- 3944 Dec, [place] [id number] [place] [address] 62166- 0910 Dec, Onychomycosis 110.1 and Skin fissures 709.8 [place] [id number] [place] [address] 45312- 6712 Sep, [place] [address] [place] [id number] [address]- 7065 Sep, [facility] [address] [id number] [place] [address]- 6106 Aug, [facility] [place] [facility] [address] [id number] [place] [address]- 6507 Aug, [facility] [address] [id number] [place] [address]- 5095 Jul, [facility] [place] [facility] [address] [id number] [place] [address]- 0699 Jul, [facility] [address] [id number] [place] 8493 Jun, [facility] [address] [id number] [place] [address]- 7680 Jun, [facility] [address] [id number] [place] [address]- 9887 Jun, [facility] [address] [id number] [place] [address]- 0429 Jun, [facility] [address] [id number] [place] [address]- 5748 Jun, [facility] [address] [id number] [place] [address]- 5942 May, [facility] [place] [facility] [address] [id number] [place] [address]- 0855 May, [facility] [place] [facility] [address] [id number] [place] [address]- 3466 May, [facility] [place] [facility] [address] [id number] [place] [address] May, [facility] [place] [facility] [address] [id number] [place] [address]- 3024 May, [facility] [place] [facility] [address] [id number] [place] [address]- 8288 May, [facility] [place] [facility] [address] [id number] [place] [address]- 2202 May, [facility] [place] [facility] [address] [id number] [place] [address]- 5323 May, [facility] [place] [facility] [address] [id number] [place] [address]- 6663 Apr, [facility] [place] [facility] [address] [id number] [place] [address]- 6787 Apr, [facility] [place] [facility] [address] [id number] [place] [address]- 1638 Apr, [facility] [place] [facility] [address] [id number] [place] [address]- 6770 Apr, [facility] [place] [facility] [address] [id number] [place] [address]- 9567 Apr, [facility] [place] [facility] [address] [id number], [place] [address]- 0073 Apr, [facility] [place] [facility] [address] [id number] [place] [address]- 6679 Apr, [facility] [place] [facility] [address] [id number], [place] [address]- 1706 Apr, [facility] [place] [facility] [address] [id number], [place] [address]- 7793 Apr, [facility] [place] [facility] [address] [id number], [place] [address]- 8598 Apr, [facility] [place] [facility] [address] [id number] [place] [address]- 9364 Mar, [facility] [place] [facility] [address] [id number], [place] [address]- 4007 Mar, [facility] [place] [facility] [address] [id number], [place] [address]- 8098 Mar, [facility] [place] [facility] [address] [id number], [place] [address]- 2910 Mar, [facility] [place] [facility] [address] [id number] [place] [address]- 3631 Mar, 2013 [facility] [place] [facility] [address] [id number], [place] [address]- 4863 Mar, [facility] [place] [facility] [address] [id number] [place] [address]- 1464 Mar, [facility] [place] [facility] [address] [id number] [place] [address]- 0328 Mar, [facility] [place] [facility] [address] [id number] [place] [address]- 1384 24 Mar, 2014 [facility] [place] [facility] [address] [id number] [place] [address]- 4021 Mar, [facility] [place] [facility] [address] [id number], [place] [address]- 2615 Mar, [facility] [place] [facility] [address] [id number], [place] [address]- 3347 Mar, [facility] [place] [facility] [address] [id number] [place] [address]- 9143 Mar, [facility] [place] [facility] [address] [id number], [place] [address]- 9887 Mar, [facility] [place] [facility] [address] [id number], [place] [address]- 9821 Mar, 2013 [facility] [place] [facility] [address] [id number], [place] [address]- 8693 Mar, 2013 [facility] [place] [facility] [address] [id number] [place] [address]- 2307 20 Mar, 2013 [facility] [place] [facility] [address] [id number], [place] [address]- 6135 16 Mar, 2013 [facility] [place] [facility] [address] [id number], [place] [address]- 1330 16 Mar, 2013 [facility] [place] [facility] [address] [id number] [place] [address]- 8919 15 Mar, 2013 [facility] [place] [facility] [address] [id number] [place] [address]- 4401 14 Mar, 2013 [facility] [place] [facility] [address] [id number] [place] [address]- 9859 14 Mar, 2013 [facility] [place] [facility] [address] [id number] [place] [address]- 3406 14 Mar, 2013 [facility] [place] [facility] [address] [id number] [place] [address]- 6731 14 Mar, 2013 [facility] [place] [facility] [address] [id number] [place] [address]- 9961 09 Mar, 2013 [facility] [place] [facility] [address] [id number] [place] [address]- 6237 09 Mar, 2013 [facility] [place] [facility] [address] [id number] [place] [address]- 9965 09 Mar, 2013 [facility] [place] [facility] [address] [id number] [place] [address]- 7182 09 Mar, 2013 [facility] [place] [facility] [address] [id number] [place] [address]- 5097 30 Feb, 2013 [facility] [place] [facility] [address] [id number] [place] [address] 30 Sep, 2013 [facility] [place] [facility] [address] [id number] [place] [address] 30 Sep, 2013 [facility] [place] [facility] [address] [id number] [place] [address] 30 Sep, 2013 [facility] [place] [facility] [address] [id number] [place] [address] 26 Sep, 2013 [facility] [place] [facility] [address] [id number] [place] [address] 26 Sep, 2013 [facility] [place] [facility] [address] [id number] [place] [address] Feb, 2013 [facility] [place] [facility] [address] [id number] [place] [address] Feb, 2013 [facility] [place] [facility] [address] [id number] [place] [address] Feb, [facility] [place] [facility] [address] [id number] [place] [address] Feb, 2013 [facility] [place] [facility] [address] [id number] [place] [address] Feb, 2013 [facility] [place] [facility] [address] [id number] [place] [address] Feb, [facility] [place] [facility] [address] [id number] [place] [address] Jan, [facility] [place] [facility] [address] [id number] [place] [address] Jan, [facility] [place] [facility] [address] [id number] [place] [address] Jan, [facility] [place] [facility] [address] [id number] [place] [address] Jan, [facility] [place] [facility] [address] [id number] [place] [address] Jan, [facility] [place] [facility] [address] [id number] [address] Jan, [facility] [place] [facility] [address] [id number], [place] [address] Jan, [facility] [place] [facility] [address] [id number] [place] [address] Jan, [facility] [place] [facility] [address] [id number] [place] [address] Jan, [facility] [place] [facility] [address] [id number] [place] [address] Jan, [facility] [place] [facility] [address] [id number] [place] [address] Jan, [facility] [place] [facility] [address] [id number] [place] [address] Jan, [facility] [place] [facility] [address] [id number] [place] [address] Jan, [facility] [place] [facility] [address] [id number] [place] [address] Dec, [facility] [place] [facility] [address] [id number] [place] [address] Dec, [facility] [place] [facility] [address] [id number] [place] [address] Dec, [facility] [place] [facility] [address] [id number] [place] [address] Dec, [facility] [place] [facility] [address] [id number] [place] [address] Dec, [facility] [place] [facility] [address] [id number] [place] [address] Dec, [facility] [place] [facility] [address] [id number] [place] [address] Dec, [facility] [place] [facility] [address] [id number] [place] [address] Dec, [facility] [place] [facility] [address] [id number] [place] [address] Dec, [facility] [place] [facility] [address] [id number] [place] [address] Dec, [facility] [place] [facility] [address] [id number] [place] [address] Dec, [facility] [place] [facility] [address] [id number] [place] [address] Dec, [facility] [place] [facility] [address] [address] [id number] [place] [address] Dec, [facility] [place] [facility] [address] [id number] [place] [address] Dec, 2013 [facility] [place] [facility] [address] [id number] [place] [address] 7767 Dec, [facility] [place] [facility] [address] [id number] [place] [address] 8[address] Dec, 2013 [facility] [place] [facility] [address] [id number] [place] [address] 7[address] Dec, [facility] [place] [facility] [address] [id number] [place] [address] 94[address] Dec, [facility] [place] [facility] [address] [id number] [place] [address] 6848 Nov, [facility] [place] [facility] [address] [id number] [place] [address] 9045 Nov, [facility] [place] [facility] [address] [id number] [place] [address] 5039 Nov, [facility] [place] [facility] [address] [id number] [place] [address] 1426 Nov, [facility] [place] [facility] [address] [id number] [place] [address] 7556 Nov, [facility] [place] [facility] [address] [id number] [place] [address] 7214 Nov, [facility] [place] [facility] [address] [id number] [place] [address] 7645 Nov, [facility] [place] [facility] [address] [id number] [place] [address] 1977 Nov, [facility] [place] [facility] [address] [id number] [place] [address] 9196 Nov, [facility] [place] [facility] [address] [id number] [place] [address] 6950 Nov, [facility] [place] [facility] [address] [id number] [place] [address] 5770 Nov, [facility] [place] [facility] [address] [id number] [place] [address] 4964 Nov, [facility] [place] [facility] [address] [id number] [place] [address]- 7685 Nov, [facility] [place] [facility] [address] [id number] [place] [address]- 9461 Nov, [facility] [place] [facility] [address] [id number] [place] [address]- 6918 Nov, [facility] [place] [facility] [address] [id number] [place] [address]- 4222 Nov, [facility] [place] [facility] [address] [id number] [place] [address]- 0052 Nov, [facility] [place] [facility] [address] [id number] [place] [address]- 2988 Nov, [facility] [place] [facility] [address] [id number] [place] [address]- 7759 Nov, [facility] [place] [facility] [address] [id number] [place] [address]- 0310 Nov, [facility] [place] [facility] [address] [id number] [place] [address]- 9180 October, [facility] [place] [facility] [address] [id number] [place] [address]- 3261 October, [facility] [place] [facility] [address] [id number] [place] [address] 0609 October, [facility] [place] [facility] [address] [id number] [place] [address]- 7685 October, [facility] [place] [facility] [address] [id number] [place] [address]- 7545 Sep, [facility] [place] [facility] [address] [id number] [place] [address] 8211 Sep, [facility] [place] [facility] [address] [id number] [place] [address] 8155 17 Sep, 2013 [facility] [address] [id number] [place] [address]- 4747 17 Sep, 2013 [facility] [place] [facility] [address] [id number] [place] [address]- 5676 Sep, [facility] [address] [id number] [place] [address] 9518 Sep, [facility] [place] [facility] [address] [id number] [place] [address] 0709 Sep, [facility] [place] [facility] [address] [id number] [place] [address]- 1145 Sep, [facility] [place] [facility] [address] [id number] [place] [address]- 6154 Sep, [facility] [place] [facility] [address] [id number] [place] [address] 2119 Aug, [facility] [address] [id number] [place] [address] 0997 Aug, [facility] [place] [facility] [address] [id number] [place] [address]- 0872 Aug, [facility] [address] [id number] [place] [address] 8045 Aug, [facility] [place] [facility] [address] [id number] [place] [address]- 3900 Aug, [facility] [place] [facility] [address] [id number] [place] [address]- 0971 Aug, [facility] [place] [facility] [address] [id number] [place] [address]- 8180 Aug, [facility] [place] [facility] [address] [id number] [place] [address] 3756 Aug, [facility] [place] [facility] [address] [id number] [place] [address] Jul, [facility] [address] [id number] [place] [address]- 1769 Jul, [facility] [place] [facility] [address] [id number] [place] [address]- 0727 Jun, [facility] [place] [facility] [address] [id number] [place] [address]- 7901 Jun, [facility] [place] [facility] [address] [id number] [place] [address]- 2660 Jun, [facility] [place] [facility] [address] [id number] [place] [address]- 3749 Jun, [facility] [place] [facility] [address] [id number] [place] [address]- 3655 Jun, [facility] [place] [facility] [address] [id number] [place] [address]- 5391 Jun, [facility] [place] [facility] [address] [id number] [place] [address]- 4204 Jun, [facility] [place] [facility] [address] [id number] [place] [address]- 0002 Jun, [facility] [place] [facility] [address] [id number] [place] [address]- 3810 Jun, [facility] [place] [facility] [address] [id number] [place] [address]- 0878 Jun, [facility] [place] [facility] [address] [id number] [address] 7738 Jun, [facility] [place] [facility] [address] [id number] [place] [address]- 6795 Jun, [facility] [place] [facility] [address] [id number] [place] [address]- 1346 May, [facility] [place] [facility] [address] [id number] [place] [address]- 6280 May, [facility] [place] [facility] [address] [id number] [place] [address]- 6781 31 May, 2013 [facility] [address] [id number] [place] [address]- 6913 31 May, 2013 [facility] [place] [facility] [address] [id number] [place] [address] 31 May, 2013 [facility] [address] [id number] [place] [address]- 0416 31 May, 2013 [facility] [place] [facility] [address] [id number] [place] [address]- 8121 26 May, 2013 [facility] [address] [id number] [place] [address] May, [facility] [place] [facility] [address] [id number] [place] [address]- 4205 May, [facility] [address] [id number] [place] [address]- 9999 16 May, 2013 [facility] [place] [facility] [address] [id number] [place] [address]- 7536 16 May, 2013 [facility] [place] [facility] [address] [id number] [place] [address] May, [facility] [place] [facility] [address] [facility] [id number] [place] [address]- 7025 May, [facility] [place] [facility] [address] [id number] [place] [address]- 0212 Apr, [facility] [place] [facility] [address] [id number] [address]- 0229 Apr, [facility] [place] [facility] [address] [id number] [place] [address]- 4297 Mar, [facility] [place] [facility] [address] [id number] [place] [address]- 5059 Mar, [facility] [place] [facility] [address] [facility] [id number], [place] [address]- 0815 24 Feb, 2013 [facility] [place] [facility] [address] [id number] [place] [address]- 0089 Feb, [facility] [place] [facility] [address] [id number] [place] [address]- 5142 Feb, [facility] [place] [facility] [address] [id number] [place] [address]- 2500 Feb, [facility] [place] [facility] [address] [id number] [place] [address]- 8715 Jan, [facility] [place] [facility] [address] [id number] [place] [address]- 2412 Jan, [facility] [place] [facility] [address] [id number] [place] [address]- 2452 Jan, [facility] [place] [facility] [address] [id number] [place] [address]- 5070 Jan, [facility] [place] [facility] [address] [id number] [place] [address]- 2110 Jan, [facility] [place] [facility] [address] [id number] [place] [address]- 8269 Jan, [facility] [place] [facility] [address] [id number] [place] [address]- 0540 Dec, [facility] [place] [facility] [address] [id number] [place] [address]- 2877 Dec, [facility] [place] [facility] [address] [id number] [place] [address]- 9370 Dec, [facility] [place] [facility] [address] [id number] [place] [address]- 3580 Dec, [facility] [place] [facility] [address] [id number] [place] [address]- 6793 Nov, [facility] [place] [facility] [address] [id number] [place] [address]- 0646 October, [facility] [place] [facility] [address] [id number] [place] [address]- 4548 October, [facility] [place] [facility] [address] [id number] [place] [address]- 3879 October, [facility] [place] [facility] [address] [id number] [place] [address]- 9616 Sep, [facility] [place] [facility] [address] [id number] [place] [address]- 2950 Sep, [facility] [place] [facility] [address] [id number] [place] [address]- 1163 Jun, [facility] [place] [facility] [address] [id number] [place] [address]- 7511 Jun, [facility] [place] [facility] [address] [id number] [place] [address]- 1071 Jun, [facility] [place] [facility] [address] [id number] [place] [address]- 2957 Apr, [facility] [place] [facility] [address] [id number], [place] [address]- 7019 Apr, [facility] [place] [facility] [address] [id number] [place] [address]- 0022 Apr, [facility] [place] [facility] [address] [id number] [place] [address]- 3432 Apr, [facility] [place] [facility] [address] [id number], [place] [address]- 2579 Mar, [facility] [place] [facility] [address] [id number], [place] [address]- 8014 Mar, [facility] [place] [facility] [address] [id number] [place] [address]- 4979 Mar, [facility] [place] [facility] [address] [id number], [place] [address]- 8299 Mar, [facility] [place] [facility] [address] [id number] [place] [address]- 5011 Feb, [facility] [place] [facility] [address] [id number] [place] [address]- 4658 27 Feb, 2012 [facility] [address] [id number] [place] [address]- 2986 Feb, [facility] [address] [id number] [place] [address]- 9506 Jan, [facility] [address] [id number] [place] [address]- 9080 Jan, [facility] [address] [id number] [place] [address]- 7463 Jan, [facility] [address] [id number] [place] [address]- 2328 Jan, [facility] [address] [id number] [place] [address]- 8419 Dec, [facility] [address] [id number] [place] [address]- 6095 Dec, [facility] [address] [id number] [place] [address]- 3575 Nov, [facility] [address] [id number] [place] [address]- 9441 Nov, [facility] [address] [id number] [place] [address]- 6263 October, [facility] [address] [id number] [place] [address]- 0968 October, [facility] [address] [id number] [place] [address]- 2201 October, [facility] [place] [facility] [address] [id number] [place] [address]- 1663 Sep, [facility] [place] [facility] [address] [id number] [place] [address]- 1916 Sep, [facility] [address] [id number] [place] [address]- 0253 Sep, [facility] [place] [facility] [address] [id number] [place] [address]- 1120 27 Aug, 2011 [facility] [place] [facility] [address] [id number] [place] [address]- 0306 26 Aug, 2011 [facility] [place] [facility] [address] [id number] [place] [address]- 0376 15 Aug, 2011 [facility] [place] [facility] [address] [id number] [place] [address]- 3326 15 Aug, 2011 [facility] [place] [facility] [address] [id number] [place] [address]- 9623 07 Aug, 2011 [facility] [place] [facility] [address] [id number] [place] [address]- 6736 23 Jul, 2011 [facility] [place] [facility] [address] [facility] [id number] [place] [address]- 3832 16 Jul, 2011 [facility] [place] [facility] [address] [id number] [place] [address]- 2506 13 Jul, 2011 [facility] [place] [facility] [address] [id number] [place] [address]- 7294 Jul, [facility] [place] [facility] [address] [id number] [place] [address]- 1421 07 Jul, 2011 [facility] [place] [facility] [address] [id number] [place] [address]- 2856 Jul, [facility] [place] [facility] [address] [id number], [place] [address]- 4153 Jul, [facility] [place] [facility] [address] [id number] [place] [address]- 7954 Jul, [facility] [place] [facility] [address] [id number] [place] [address]- 0166 Jun, [facility] [place] [facility] [address] [id number] [place] [address] 2546 Jun, [facility] [place] [facility] [address] [id number] [place] [address]- 3859 May, [facility] [address] [id number] [place] [address]- 3062 May, [facility] [address] [id number] [place] [address]- 0726 May, [facility] [address] [id number] [place] [address]- 5380 May, [facility] [place] [facility] [address] [id number] [place] [address]- 1585 Apr, [facility] [address] [id number] [place] [address]- 2575 Apr, [facility] [address] [id number] [place] [address]- 5239 Apr, [facility] [address] [id number] [place] [address]- 9022 Mar, [facility] [address] [id number] [place] [address]- 3462 Mar, [facility] [address] [id number] [place] [address]- 8039 Mar, [facility] [address] [id number] [place] [address]- 0803 Mar, [facility] [address] [id number] [place] [address]- 2401 Dec, [facility] [address] [id number] [place] [address]- 5564 October, [facility] [place] [facility] [address] [id number] [place] [address]- 4393 May, [facility] [place] [facility] [address] [id number] [place] [address]- 3190 May, [facility] [place] [facility] [address] [id number] [place] [address]- 1237 May, [facility] [address] [id number] [address]- 6656 May, [facility] [id number], [place] [address]- 0456 Mar, [facility] [id number], [place] [address]- 9436 Mar, [facility] [id number], [place] [address]- 5202 May, [facility] [id number], [place] [address]- 5417 May, [facility] [id number], [place] [address]- 9466 May, [facility] [id number], [place] [address]- 6289 May, [facility] [id number], [place] [address]- 9985 Apr, [facility] [id number], [place] [address]- 2769 Apr, [facility] [address] [id number], [place] [address]- 9576 October, IMMUNIZATIONS No Known Immunizations SOCIAL HISTORY Never Assessed REASON FOR VISIT BH intake, "Depressed." PLAN OF CARE Activity Details Follow Up 1 Week Reason:depression VITAL SIGNS MEDICATIONS Medication Instructions Dosage Frequency Start Date End Date Duration Status Cyclobenzaprine HCl 10 MG Orally every 6 hrs 1 tablet as needed for spasms 6h Active Estradiol 0.5 MG 1 tablet Active Gabapentin 300 MG Orally Once a day 1 capsule at bedtime 24h Active HydrOXYzine HCl 50 mg Orally 2 times a day 1 tablet 12h Active Fluoxetine HCl 20 mg Orally Once a day 1 capsule in the morning 24h Aug 90 days Active Toviaz 4 MG Orally Once a day 1 tablet 24h Active Ventolin HFA 108 (90 Base) MCG/ACT Inhalation every 4 hrs 2 puffs as needed 4h 07 Dec, 2015 90 days Active Symbicort 160-4.5 MCG/ACT Inhalation Twice a day 2 puffs 12h 90 days Active Quinapril HCl 20 mg Orally Once a day 2 tablets 24h Active Cortisporin 3.5-87270-4 Otic Three times a day 4 drops into affected ear 8h Jul, 05 days Active Nitrofurantoin Monohyd Macro 100 mg Orally Once a day 1 capsule with supper 24h Active Montelukast Sodium 10 MG Orally Once a day 1 tablet in the evening 24h 90 days Active Oxygen ... 2L with nasal cannula Active Ropinirole HCl 0.5 MG Orally Once a day 1 tablet 1 to 3 hours before bedtime 24h Active Ranitidine HCl 150 MG Orally 2 times a day 1 tablet 12h Active Simvastatin 40 MG Orally Once a day 1 tablet in the evening 24h 30 Active Nebulizer - as directed for use with inhaled medications Mar, lifetime Active Albuterol Sulfate (2.5 MG/3ML) 0.083% Inhalation every 6 hrs 3 ml as needed 6h Apr, Active RESULTS No Results PROCEDURES Procedure Date Ordered Result Body Site [facility] VISIT MENTAL HEALTH ESTAB PT August 30, 2017 Psych diagnostic evaluation, established patient August 30, 2017 INSTRUCTIONS MEDICATIONS ADMINISTERED No Known Medications [...] Hospitalization History Surgeries only Hospitalization History hypotension, dizziness--VC 04/12/2016 Hospitalization History Colonoscopy 01/30/2014
--- OUTSIDE RECORDS SUMMARY | 2018-03-17 11:20 | XMS REPORT ---
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 Active 839897946 Problem History of illicit drug use Z87.898 Active 283577398 Problem COPD exacerbation J44.1 Active 597416086 Problem Neuropathy G62.9 Active 467762806 Problem Essential hypertension I10 Active 16513128 Problem 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 Active 43542062 Problem Major depressive disorder, recurrent episode, moderate F33.1 Active 529762383 Problem Impaired circulation I99.9 Active 20105448 Problem 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 Active 12942636 Problem Snoring R06.83 Active 29146731 Problem MRSA (methicillin resistant staph aureus) culture positive Z22.322 Active 867117805 Problem Fatigue R53.83 Active 13829255 Problem Varicose veins of both lower extremities I83.93 Active 86544848 Problem Dysthymic disorder F34.1 Active 47360803 Problem Upper respiratory tract infection, unspecified type J06.9 Active 51040246 Problem Panic disorder without agoraphobia F41.0 Active 57071136 Problem Mild persistent asthma without complication J45.30 Active 818862269 ALLERGIES Substance Reaction Event Type Date Status Sulfamethoxazole-Trimethoprim Unknown Drug Allergy Aug, Active Codeine Phosphate swelling Drug Allergy Aug, Active ENCOUNTERS Encounter Location Date Diagnosis [facility] [place] [address] 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 and Acute pain of right knee M25.561 [place] [address] [place] [id number] [place] [address] 37587- 0146 Nov, [address] 64361- 6755 Nov, Onychomycosis B35.1 and Contusion of left foot, subsequent encounter S90.32XD [address] 76422- 2496 Nov, COPD exacerbation J44.1 [place] [id number] [place] [address] 19013- 8230 Sep, [address] 86168- 0393 Sep, Dysthymic disorder F34.1 ; Tobacco abuse Z72.0 ; Pain in right knee M25.561 ; Pain in left knee M25.562 ; Other chronic pain G89.29 and BMI 40.0-44.9, adult Z68.41 [place] [id number] [place] [address] 24100- 0727 Aug, Major depressive disorder, recurrent episode, moderate F33.1 and 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 [address] [place] [id number] [place] [address] 51081 -0067 Jul, Right medial knee pain M25.561 ; Upper respiratory tract infection, unspecified type J06.9 and BMI 40.0-44.9, adult Z68.[address] 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 [place] [address] [place] [id number] [place] [address] 27968- 6896 Jan, Onychomycosis B35.1 and Neuropathy G62.9 [place] [address] [place] [id number] [place] [address] 63644- 4295 Dec, [place] [address] [place] [id number] [place] [address] 60264- 0721 Dec, [place] [address] [place] [id number] [place] [address] 47990- 1772 Nov, [place] [address] [place] [id number] [place] [address] 91007- 3032 Aug, [place] [address] 11102- 0480 Aug, [place] [address] [place] [id number] [place] [address] 80734- 3070 Jul, [place] [address] [address] 97[address] Jul, [facility] [place] [id number] [place] [address] 78451- 5236 17 Jul, 2016 Decubitus ulcer of left thigh, stage 2 L89.892 [facility] [place] [address] [address] 5296 17 Jul, 2016 Decubitus ulcer of left thigh, stage 2 L89.892 [facility] [place] [address] [address] 8006 17 Jul, 2016 [facility] [place] [address] [place] [id number] [place] [address] 05503- 3386 15 Jul, 2016 Decubitus ulcer of left thigh, stage 2 L89.892 [facility] [place] [address] [place] [address] 13094- 2276 14 Jul, 2016 [facility] [place] [address] [address] 6551 13 Jul, 2016 Cellulitis of other specified site L03.818 ; Illicit drug use F19.90 and Decubitus ulcer of left thigh, stage 2 L89.892 [facility] [place] [address] [address] 8501 08 Jul, 2016 [facility] [place] [address] [address] 3980 Jul, Cellulitis of right breast N61.0 [facility] [place] [address] [address] 4574 Jun, [facility] [place] [address] [place] [id number] [place] [address] 60057- 4956 Jun, [facility] [place] [address] [address]- 4975 Jun, Wheezing R06.2 and Arthralgia, unspecified joint M25.50 [facility] [place] [address] [id number] [address] 8684 30 May, 2016 [facility] [place] [address] [place] [id number] [place] [address] 17708- 9149 May, [facility] [place] [address] [place] [id number] [place] [address] 40138- 3615 May, [facility] [place] [address] [place] [id number] [place] [address] 76618- 4513 05 May, 2016 Shortness of breath R06.02 [facility] [place] [address] [place] [id number] [place] [address] 21383- 6132 02 May, 2016 Onychomycosis B35.1 and Fissure in skin of foot R23.4 [facility] [place] [address] [place] [id number] [place] [address] 60329- 6969 28 Apr, 2016 [facility] [address] [place] [id number] [place] [address] 32153 -5111 18 Apr, 2016 Dizziness R42 [facility] [place] [address] [place] [id number] [place] [address] 14938- 0209 14 Apr, 2016 Shortness of breath R06.02 ; Essential hypertension I10 ; Dizziness R42 and On home oxygen therapy Z99.81 [facility] [place] [address] [place] [address] 25870- 1164 10 Apr, 2016 [facility] [place] [address] [place] [id number] [place] [address] 24680- 0774 08 Apr, 2016 [facility] [place] [address] [place] [id number] [place] [address] 87371- 5787 Apr, [facility] [place] [address] [place] [id number] [place] [address] 05502- 2039 04 Apr, 2016 [facility] [place] [address] [place] [id number] [place] [address] 21683- 0047 04 Apr, 2016 [facility] [place] [address] [place] [id number] [place] [address] 98122- 6433 Apr, [facility] [place] [address] [address]- 0882 Apr, [facility] [place] [address] [place] [id number] [place] [address] 39663- 6948 Mar, Mild chronic obstructive pulmonary disease J44.9 [facility] [place] [address] [place] [id number] [place] [address] 26485- 4683 Mar, [facility] [place] [address] [place] [id number] [place] [address] 15744- 8601 Mar, Epigastric pain R10.13 ; Low back pain M54.5 ; Other chronic pain G89.29 and Breast cancer screening Z12.39 [place] [address] [place] [id number] [place] [address] 72038- 0425 Mar, [facility] [place] [address] [place] [id number] [place] [address] 43974- 5046 Mar, [facility] [place] [address] [place] [id number] [place] [address] 80314- 6581 Feb, [facility] [place] [address] [place] [id number] [place] [address] 21026- 6075 Feb, [place] [address] [place] [id number] [place] [address] 61324- 7906 Feb, Fissure in skin of foot R23.4 and Onychomycosis B35.1 [place] [address] [place] [address] 44645- 4184 Jan, 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 [place] [address] [place] [address] 55858- 7378 Dec, 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 [place] [address] [place] [address] 98375- 3086 Dec, Mild persistent asthma without complication J45.30 ; Dysthymic disorder F34.1 and Upper respiratory tract infection, unspecified type J06.9 [place] [address] [address]- 9538 Nov, 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 [facility] [place] [address] [place] [id number] [place] [address] 32968- 8670 October, 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 [facility] [place] [address] [place] [id number] [place] [address] 08811- 0852 Sep, Panic disorder without agoraphobia F41.0 ; 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 and Dysthymic disorder F34.1 [facility] [place] [address] [place] [id number] [place] [address] 54379- 8359 Sep, Panic attacks F41.0 [facility] [place] [address] [place] [id number] [place] [address] 96102- 6862 Sep, [facility] [place] [address] [place] [id number] [place] [address] 25650- 1605 Sep, Panic disorder without agoraphobia F41.0 ; Varicose veins of both lower extremities I83.93 and Fatigue R53.83 [facility] [place] [address] [place] [id number] [place] [address] 92599- 8750 Sep, Fatigue R53.83 [facility] [place] [address] [place] [id number] [place] [address] 94485- 4650 Sep, [facility] [place] [address] [place] [address] 18525- 1953 Aug, [facility] [place] [address] [place] [id number] [place] [address] 21256- 4119 Aug, [facility] [place] [address] [place] [id number] [place] [address] 49113- 2150 Aug, 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 [facility] [place] [address] [address]- 4338 Aug, Panic disorder without agoraphobia F41.0 ; 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 and Dysthymic disorder F34.1 [place] [address] [place] [id number] [place] [address] 49209- 6347 Aug, Shortness of breath R06.02 ; Panic attacks F41.0 ; COPD ( chronic obstructive pulmonary disease) J44.9 ; Tobacco abuse Z72.0 ; Family history of diabetes mellitus Z83.3 and Weight gain R63.[address] 60701- 0347 Aug, [place] [address] 00545- 7077 Jul, [address] 87760- 2429 Jun, Onychomycosis B35.1 ; Neuropathy G62.9 and Impaired circulation I99.[address] 45028- 4757 Mar, Fissure in skin of foot R23.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 44008- 7207 Feb, Family history of coronary arteriosclerosis V17.3 [place] [id number] [place] [address] 50768- 2187 Feb, Allergic rhinitis due to pollen 477.0 ; Unspecified breast screening V76.10 ; Anxiety 300.00 and Family history of coronary arteriosclerosis V17.3 [place] [address] [place] [id number] [place] [address] 43169- 9510 Jan, [address] 69664- 7432 Dec, [address] 21823- 1489 Dec, Onychomycosis 110.1 and Skin fissures 709.[address] [place] [address]- 4039 14 Sep, 2014 [facility] [address] [id number] [place] [address]- 2776 Sep, [facility] [place] [facility] [address] [id number] [place] [address]- 0667 Aug, [facility] [address] [id number] [place] 1959 Aug, [facility] [place] [facility] [address] [id number] [place] [address]- 6350 Jul, [facility] [place] [facility] [address] [id number] [place] 5003 Jul, [facility] [place] [facility] [address] [id number] [place] [address]- 7768 Jun, [facility] [address] [id number] [place] [address]- 6589 Jun, [facility] [address] [id number] [place] [address]- 3750 Jun, [facility] [address] [id number] [place] [address]- 1495 Jun, [facility] [address] [id number] [place] [address]- 1219 Jun, [facility] [address] [id number] [place] [address]- 3664 May, [facility] [place] [facility] [address] [id number] [place] [address]- 7019 May, [facility] [place] [facility] [address] [id number] [place] 6395 May, [facility] [place] [facility] [address] [id number] [place] [address]- 2164 May, [facility] [place] [facility] [address] [id number] [place] [address]- 1748 May, [facility] [place] [facility] [address] [id number] [place] [address]- 8256 May, [facility] [place] [facility] [address] [id number] [place] [address]- 6492 May, [facility] [place] [facility] [address] [id number] [place] [address]- 6922 May, [facility] [place] [facility] [address] [id number] [place] [address]- 2707 Apr, [facility] [place] [facility] [address] [id number] [place] [address]- 9450 Apr, [facility] [place] [facility] [address] [id number] [place] [address]- 7410 Apr, [facility] [place] [facility] [address] [id number] [place] [address]- 3538 Apr, [facility] [place] [facility] [address] [id number] [place] [address]- 1116 Apr, [facility] [place] [facility] [address] [id number] [place] [address]- 4093 Apr, [facility] [place] [facility] [address] [id number] [place] [address]- 6361 Apr, [facility] [place] [facility] [address] [id number] [place] [address]- 3732 Apr, [facility] [place] [facility] [address] [id number], [place] [address]- 6438 Apr, [facility] [place] [facility] [address] [id number] [place] [address]- 1614 Apr, [facility] [place] [facility] [address] [id number], [place] [address]- 0995 Mar, [facility] [place] [facility] [address] [id number], [place] [address]- 5579 Mar, [facility] [place] [facility] [address] [id number], [place] [address]- 2177 Mar, [facility] [place] [facility] [address] [id number] [place] [address]- 0302 Mar, [facility] [place] [facility] [address] [id number] [place] [address]- 1744 Mar, [facility] [place] [facility] [address] [id number] [place] [address]- 9972 Mar, [facility] [place] [facility] [address] [id number] [place] [address]- 5744 Mar, [facility] [place] [facility] [address] [id number] [place] [address]- 8304 Mar, [facility] [place] [facility] [address] [id number] [place] [address]- 1299 Mar, [facility] [place] [facility] [address] [id number] [place] [address]- 4187 Mar, [facility] [place] [facility] [address] [id number] [place] [address]- 6204 Mar, [facility] [place] [facility] [address] [id number] [place] [address]- 5483 Mar, [facility] [place] [facility] [address] [id number] [place] [address]- 7413 Mar, [facility] [place] [facility] [address] [id number], [place] [address]- 9874 Mar, [facility] [place] [facility] [address] [id number], [place] [address]- 2865 Mar, [facility] [place] [facility] [address] [id number] [place] [address]- 5145 Mar, [facility] [place] [facility] [address] [id number] [place] [address]- 1992 20 Mar, 2013 [facility] [place] [facility] [address] [id number] [place] [address]- 0494 16 Mar, 2014 [facility] [place] [facility] [address] [id number] [place] [address]- 5636 16 Mar, 2013 [facility] [place] [facility] [address] [id number] [place] [address]- 1153 15 Mar, 2014 [facility] [place] [facility] [address] [id number] [place] [address]- 7981 14 Mar, 2013 [facility] [place] [facility] [address] [id number] [place] [address]- 4634 14 Mar, 2013 [facility] [place] [facility] [address] [id number] [place] [address]- 8587 14 Mar, 2013 [facility] [place] [facility] [address] [id number] [place] [address]- 2741 14 Mar, 2013 [facility] [place] [facility] [address] [id number] [place] [address]- 5779 09 Mar, 2013 [facility] [place] [facility] [address] [id number] [place] [address]- 3406 09 Mar, 2013 [facility] [place] [facility] [address] [id number] [place] [address]- 0765 09 Mar, 2013 [facility] [place] [facility] [address] [id number] [place] [address]- 9360 09 Mar, 2013 [facility] [place] [facility] [address] [id number] [place] [address]- 3669 30 Feb, 2013 [facility] [place] [facility] [address] [id number] [place] [address]- 7746 30 Sep, 2013 [facility] [place] [facility] [address] [id number] [place] [address]- 8107 30 Sep, 2013 [facility] [place] [facility] [address] [id number] [place] [address]- 8510 30 Sep, 2013 [facility] [place] [facility] [address] [id number] [place] [address]- 0054 26 Sep, 2013 [facility] [place] [facility] [address] [id number] [place] [address]- 5350 Feb, 2013 [facility] [place] [facility] [address] [id number] [place] [address]- 6957 Feb, 2013 [facility] [place] [facility] [address] [id number] [place] [address] Feb, 2013 [facility] [place] [facility] [address] [id number] [place] [address] Feb, 2013 [facility] [place] [facility] [address] [id number] [place] [address] Feb, 2013 [facility] [place] [facility] [address] [id number] [place] [address] Feb, 2013 [facility] [place] [facility] [address] [id number] [place] [address] Feb, [facility] [place] [facility] [address] [id number] [place] [address] Jan, [facility] [place] [facility] [address] [id number] [place] [address] Jan, [facility] [place] [facility] [address] [id number] [place] [address] Jan, [facility] [place] [facility] [address] [id number] [place] [address] Jan, [facility] [place] [facility] [address] [id number] [place] [address] Jan, [facility] [place] [facility] [address] [id number] [place] [address] Jan, [facility] [place] [facility] [address] [id number] [place] [address] Jan, [facility] [place] [facility] [address] [id number] [place] [address] Jan, [facility] [place] [facility] [address] [id number] [place] [address] Jan, [facility] [place] [facility] [address] [id number] [place] [address] Jan, [facility] [place] [facility] [address] [id number] [place] [address] Jan, [facility] [place] [facility] [address] [id number] [place] [address] Jan, [facility] [place] [facility] [address] [id number] [place] [address] Jan, [facility] [place] [facility] [address] [id number] [place] [address] Dec, [facility] [place] [facility] [address] [id number] [place] [address] Dec, [facility] [place] [facility] [address] [id number] [place] [address] Dec, [facility] [place] [facility] [address] [id number] [place] [address] Dec, [facility] [place] [facility] [address] [id number] [place] [address] Dec, [facility] [place] [facility] [address] [id number] [place] [address] Dec, [facility] [place] [facility] [address] [id number] [place] [address] Dec, [facility] [place] [facility] [address] [id number] [place] [address] Dec, [facility] [place] [facility] [address] [id number] [place] [address] Dec, [facility] [place] [facility] [address] [id number] [place] [address]- [address] Dec, [facility] [place] [facility] [address] [id number] [place] [address] Dec, [facility] [place] [facility] [address] [id number] [place] [address] Dec, [facility] [place] [facility] [address] [id number] [place] [address] Dec, 2013 [facility] [place] [facility] [address] [id number] [place] [address] Dec, 2013 [facility] [place] [facility] [address] [id number] [place] [address] Dec, 2013 [facility] [place] [facility] [address] [id number] [place] [address] Dec, 2013 [facility] [place] [facility] [address] [id number] [place] [address] Dec, 2013 [facility] [place] [facility] [address] [id number] [place] [address] Dec, 2013 [facility] [place] [facility] [address] [id number] [place] [address] Nov, [facility] [place] [facility] [address] [id number] [place] [address] Nov, [facility] [place] [facility] [address] [id number] [place] [address] Nov, [facility] [place] [facility] [address] [id number] [place] [address] Nov, [facility] [place] [facility] [address] [id number] [place] [address] Nov, [facility] [place] [facility] [address] [id number] [place] [address] Nov, [facility] [place] [facility] [address] [id number] [place] [address] Nov, [facility] [place] [facility] [address] [id number] [place] [address] Nov, [facility] [place] [facility] [address] [id number] [place] [address] Nov, [facility] [place] [facility] [address] [id number] [place] [address] Nov, [facility] [place] [facility] [address] [id number] [place] [address] Nov, [facility] [place] [facility] [address] [id number] [place] [address] Nov, [facility] [place] [facility] [address] [id number] [place] [address] 6[address] Nov, [facility] [place] [facility] [address] [id number] [place] [address]852 Nov, [facility] [place] [facility] [address] [id number] [place] [address] 1097 Nov, [facility] [place] [facility] [address] [id number] [place] [address] 6066 Nov, [facility] [place] [facility] [address] [id number] [place] [address] 6034 Nov, [facility] [place] [facility] [address] [id number] [place] [address]37 Nov, [facility] [place] [facility] [address] [id number] [place] [address] 8[address] Nov, [facility] [place] [facility] [address] [id number] [place] [address] 8899 Nov, [facility] [place] [facility] [address] [id number] [place] [address] 9216 October, [facility] [place] [facility] [address] [id number], [place] [address] October, [facility] [place] [facility] [address] [id number] [place] [address]- 6669 October, [facility] [place] [facility] [address] [id number] [place] [address]- 6225 October, [facility] [place] [facility] [address] [id number] [place] [address]- 3979 Sep, [facility] [place] [facility] [address] [id number] [place] [address]- 0685 Sep, [facility] [address] [id number] [place] [address] 3316 Sep, [facility] [place] [facility] [address] [id number] [place] [address]- 2506 Sep, [facility] [address] [id number] [place] [address]- 7808 Sep, [facility] [place] [facility] [address] [id number] [place] [address]- 0579 Sep, [facility] [address] [id number] [place] [address]- 4570 Sep, [facility] [address] [id number] [place] [address] 0265 Sep, [facility] [address] [id number] [place] [address]- 4643 Sep, [facility] [address] [id number] [place] [address]- 3648 Aug, [facility] [place] [facility] [address] [id number] [place] [address]- 3400 Aug, [facility] [address] [id number] [place] [address]- 6943 Aug, [facility] [place] [facility] [address] [id number] [place] [address] 9238 Aug, [facility] [place] [facility] [address] [id number] [place] [address]- 0451 Aug, [facility] [place] [facility] [address] [id number] [place] [address]- 7041 Aug, [facility] [place] [facility] [address] [id number] [place] [address] 8388 Aug, [facility] [place] [facility] [address] [id number] [place] [address]- 8161 Aug, [facility] [place] [facility] [address] [id number] [place] [address]- 6269 Jul, [facility] [place] [facility] [address] [id number] [place] [address]- 2134 Jul, [facility] [place] [facility] [address] [id number] [place] [address]- 7012 Jun, [facility] [place] [facility] [address] [id number] [place] [address]- 6480 Jun, [facility] [place] [facility] [address] [id number] [place] [address]- 1247 Jun, [facility] [place] [facility] [address] [id number] [place] [address]- 3128 Jun, [facility] [place] [facility] [address] [id number] [place] [address]- 8033 Jun, [facility] [place] [facility] [address] [id number] [place] [address]- 7633 Jun, [facility] [place] [facility] [address] [id number] [place] [address]- 1334 Jun, [facility] [place] [facility] [address] [id number], [place] [address] 7[address] Jun, [facility] [place] [facility] [address] [id number], [place] [address]- 5895 Jun, [facility] [place] [facility] [address] [id number], [place] [address]- 2864 Jun, [facility] [place] [facility] [address] [id number] [place] [address]- 9924 Jun, [facility] [place] [facility] [address] [id number], [place] [address] Jun, [facility] [place] [facility] [address] [id number], [place] [address]- 9561 May, [facility] [place] [facility] [address] [id number], [place] [address]- 0160 31 May, 2013 [facility] [address] [id number] [place] [address]- 9606 31 May, 2013 [facility] [address] [facility] [id number] [place] [address] 31 May, 2013 [facility] [address] [facility] [id number] [place] [address] May, [facility] [address] [id number] [place] [address] 31 May, 2013 [facility] [address] [facility] [id number] [place] [address]- 8865 May, [facility] [address] [facility] [id number] [place] [address]- 0131 May, [facility] [address] [facility] [id number], [place] [address]- 0739 May, [facility] [address] [facility] [id number] [place] [address] 9319 16 May, 2013 [facility] [address] [facility] [id number] [place] [address]- 1858 16 May, 2013 [facility] [address] [facility] [id number] [place] [address]- 5402 16 May, 2013 [facility] [address] [facility] [id number], [place] [address] 3200 May, [facility] [place] [facility] [address] [id number], [place] [address]- 3317 Apr, [facility] [place] [facility] [address] [id number], [place] [address]- 1305 Apr, [facility] [place] [facility] [address] [facility] [id number], [place] [address]- 5164 Mar, [facility] [place] [facility] [address] [facility] [id number], [place] [address]- 7262 Mar, [facility] [place] [facility] [address] [id number] [place] [address]- 6019 24 Feb, 2012 [facility] [place] [facility] [address] [id number] [place] [address]- 6816 Feb, [facility] [place] [facility] [address] [id number] [place] [address] 2546 Feb, [facility] [place] [facility] [address] [id number] [place] [address]- 5601 Feb, [facility] [place] [facility] [address] [id number] [place] [address]- 2003 Jan, [facility] [place] [facility] [address] [id number] [place] [address]- 2855 Jan, [facility] [place] [facility] [address] [id number] [place] [address]- 9505 Jan, [facility] [place] [facility] [address] [id number] [place] [address]- 3294 Jan, [facility] [place] [facility] [address] [id number] [place] [address]- 4542 Jan, [facility] [place] [facility] [address] [id number] [place] [address]- 1849 Jan, [facility] [place] [facility] [address] [id number] [place] [address]- 2588 Dec, [facility] [place] [facility] [address] [id number] [place] [address]- 0168 Dec, [facility] [place] [facility] [address] [id number] [place] [address]- 7708 Dec, [facility] [place] [facility] [address] [id number] [place] [address]- 4533 Dec, [facility] [place] [facility] [address] [id number] [place] [address]- 1301 Nov, [facility] [place] [facility] [address] [id number] [place] [address]- 4440 October, [facility] [address] [id number] [place] [address]- 0653 October, [facility] [place] [facility] [address] [id number] [place] [address]- 0571 October, [facility] [place] [facility] [address] [id number] [place] [address]- 3473 Sep, [facility] [place] [facility] [address] [id number] [place] [address]- 2620 Sep, [facility] [place] [facility] [address] [id number] [place] [address]- 4035 Jun, [facility] [place] [facility] [address] [id number] [place] [address]- 7716 Jun, [facility] [place] [facility] [address] [id number] [place] [address]- 4927 Jun, [facility] [place] [facility] [address] [id number], [place] [address]- 4825 Apr, [facility] [place] [facility] [address] [id number] [place] [address]- 0917 Apr, [facility] [place] [facility] [address] [facility] [id number], [place] [address]- 3767 Apr, [facility] [place] [facility] [address] [id number], [place] [address]- 2559 Apr, [facility] [place] [facility] [address] [id number], [place] [address]- 5322 Mar, [facility] [place] [facility] [address] [id number] [place] [address]- 5615 Mar, [facility] [place] [facility] [address] [id number], [place] [address]- 2614 Mar, [facility] [place] [facility] [address] [id number], [place] [address]- 5384 Mar, [facility] [place] [facility] [address] [id number] [place] [address]- 0191 29 Feb, 2012 [facility] [place] [facility] [address] [id number] [place] [address]- 0956 27 Feb, 2012 [facility] [place] [facility] [address] [id number] [place] [address]- 4426 20 Feb, 2012 [facility] [place] [facility] [address] [id number] [place] [address]- 1646 30 Jan, 2012 [facility] [place] [facility] [address] [id number] [place] [address]- 0509 Jan, [facility] [place] [facility] [address] [id number] [place] [address]- 9739 Jan, [facility] [place] [facility] [address] [id number] [place] [address]- 1261 Jan, [facility] [place] [facility] [address] [id number] [place] [address]- 4595 Dec, [facility] [place] [facility] [address] [id number] [place] [address]- 7800 Dec, [facility] [place] [facility] [address] [id number] [place] [address]- 4824 Nov, [facility] [place] [facility] [address] [id number] [place] [address]- 7306 Nov, [facility] [place] [facility] [address] [id number] [place] [address]- 8890 October, [facility] [place] [facility] [address] [id number] [place] [address]- 3841 October, [facility] [place] [facility] [address] [id number] [place] [address]- 9957 October, [facility] [place] [facility] [address] [id number] [place] [address]- 0625 Sep, [facility] [place] [facility] [address] [id number] [place] [address]- 1248 Sep, [facility] [place] [facility] [address] [id number] [place] [address]- 8287 Sep, [facility] [place] [facility] [address] [id number] [place] [address]- 5186 27 Aug, 2011 [facility] [place] [facility] [address] [id number] [place] [address]- 4466 26 Aug, 2011 [facility] [place] [facility] [address] [id number] [place] [address]- 2146 15 Aug, 2011 [facility] [place] [facility] [address] [id number] [place] [address]- 1611 15 Aug, 2011 [facility] [place] [facility] [address] [id number] [place] [address]- 2626 Aug, [facility] [place] [facility] [address] [id number] [place] [address]- 0560 23 Jul, 2011 [facility] [place] [facility] [address] [id number] [place] [address]- 9059 16 Jul, 2011 [facility] [place] [facility] [address] [id number] [place] [address]- 2314 Jul, [facility] [place] [facility] [address] [id number] [place] [address]- 1396 Jul, [facility] [place] [facility] [address] [id number] [place] [address]- 4196 Jul, [facility] [place] [facility] [address] [id number] [place] [address]- 2657 Jul, [facility] [place] [facility] [address] [id number] [place] [address]- 2656 Jul, [facility] [place] [facility] [address] [id number] [place] [address]- 4566 Jul, [facility] [place] [facility] [address] [id number] [place] [address]- 3006 Jun, [facility] [place] [facility] [address] [id number] [place] [address]- 6787 Jun, [facility] [place] [facility] [address] [id number] [place] [address]- 5890 May, [facility] [place] [facility] [address] [id number] [place] [address]- 7796 May, [facility] [place] [facility] [address] [id number] [place] [address]- 9327 May, [facility] [place] [facility] [address] [id number] [place] [address]- 6373 May, [facility] [place] [facility] [address] [id number] [place] [address]- 2918 Apr, [facility] [place] [facility] [address] [id number] [place] [address]- 7426 Apr, [facility] [place] [facility] [address] [id number] [place] [address]- 4069 Apr, [facility] [place] [facility] [address] [id number] [place] [address]- 6005 Mar, [facility] [place] [facility] [address] [id number] [place] [address]- 8603 Mar, [facility] [place] [facility] [address] [facility] [id number] [place] [address]- 2133 Mar, [facility] [place] [facility] [address] [id number] [place] [address]- 6517 Mar, [facility] [place] [facility] [address] [id number] [place] [address]- 6740 Dec, [facility] [place] [facility] [address] [id number] [place] [address]- 7981 October, [facility] [place] [facility] [address] [id number] [place] [address]- 9898 May, [facility] [place] [facility] [address] [id number] [place] [address]- 6107 May, [facility] [place] [address], [place] [address]- 5173 May, [facility] [place] [id number], [place] [address]- 3596 May, [facility] [place] [address], [place] [address]- 5482 Mar, [facility] [place] [id number] [place] [address]- 1727 Mar, [facility] [place] [id number] [place] [address]27- 9120 May, [facility] [place] [id number] [place] [address]- 5247 May, [facility] [place] [id number] [place] [address] 00882- 1751 May, [facility] [place] [id number] [place] [address] 26438- 8600 May, [facility] [place] [address], [place] [address]- 0774 Apr, [facility] [place] [id number] [place] [address] 21234- 7434 Apr, [facility] [place] [address], [place] [address]- 1067 October, IMMUNIZATIONS No Known Immunizations SOCIAL HISTORY Never Assessed REASON FOR VISIT 3 month f/u. Consult Dr. Hinojosa;[facility] RT(R) PLAN OF CARE Activity Details Follow Up 3 Months Reason: VITAL SIGNS MEDICATIONS Medication Instructions Dosage Frequency Start Date End Date Duration Status Montelukast Sodium 10 MG Orally Once a day 1 tablet in the evening 24h 90 days Unknown Hydrochlorothiazide 50 MG Orally Once a day 1 tablet 24h Unknown Ropinirole HCl 0.5 MG TAKE ONE TABLET BY MOUTH ONCE DAILY AT BEDTIME. 30 Unknown Gabapentin 300 MG Orally Once a day 1 capsule 24h 90 days Unknown Ventolin HFA 108 (90 Base) MCG/ACT Inhalation every 4 hrs 2 puffs as needed 4h Dec, 90 days Unknown Drawtex 4"X4" - Externally every 3 days Completely cover wound with pad Jul, 30 days Unknown Albuterol Sulfate (2.5 MG/3ML) 0.083% Inhalation every 6 hrs 3 ml as needed 6h Apr, Unknown Zofran 8 MG Orally TID PRN 1 tablet Jul, 03 days Unknown Cortisporin 3.5-10810-7 Otic Three times a day 4 drops into affected ear 8h Jul, 05 days Unknown Ibuprofen 200 MG Orally every 6 hrs 1 - 4 tablets as needed for pain 6h Jul, 30 days Unknown Toprol XL 25 MG Orally Once a day at bedtime 1 tablet 30 Unknown Ranitidine HCl 150 MG 1 Tablet by Oral route 2 times per day 30 Unknown Nebulizer - as directed for use with inhaled medications Mar, lifetime Unknown Budesonide 0.25 mg/2 mL inhale 2 milliliters (0.25 mg) by nebulization route 2 times per day Mar, Unknown Symbicort 160-4.5 MCG/ACT Inhalation Twice a day 2 puffs 12h 90 days Unknown Nitrofurantoin Monohyd Macro 100 MG Orally every 12 hrs 1 capsule with food 12h Unknown Simvastatin 40 MG Orally Once a day 1 tablet in the evening 24h 30 Unknown Oxygen ... 2L with nasal cannula Unknown Toviaz 4 MG Orally Once a day 1 tablet 24h Unknown Cyclobenzaprine HCl 10 MG TAKE ONE TABLET BY MOUTH TWICE DAILY 30 Unknown RESULTS No Results PROCEDURES Procedure Date Ordered Result Body Site DEBRIDE NAIL, 6 OR MORE August 17, 2017 [facility] VISIT ESTABLISHED PATIENT August 17, 2017 INSTRUCTIONS MEDICATIONS ADMINISTERED No Known Medications [...]
--- OUTSIDE RECORDS SUMMARY | 2018-03-17 11:21 | XMS REPORT ---
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 Active 40328208 Problem On home oxygen therapy Z99.81 Active 946889977668 Problem Mild chronic obstructive pulmonary disease J44.9 Active 470662164 Problem Neuropathy G62.9 Active 370770718 Problem Essential hypertension I10 Active 11924950 Problem History of illicit drug use Z87.898 Active 620410585 Problem MRSA (methicillin resistant staph aureus) culture positive Z22.322 Active 907766646 Problem Snoring R06.83 Active 09101687 Problem 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 Active 34362043 Problem Panic disorder without agoraphobia F41.0 Active 16797425 Problem Impaired circulation I99.9 Active 10612476 Problem Fatigue R53.83 Active 82753335 Problem Dysthymic disorder F34.1 Active 69876450 Problem Varicose veins of both lower extremities I83.93 Active 66522543 ALLERGIES No Information ENCOUNTERS Encounter Location Date Diagnosis [facility] [address] [facility] [id number], [place] [address] Nov, [facility] [address] [facility] [id number], [place] [address] Sep, [facility] [address] [facility] [id number], [place] [address] Aug, Major depressive disorder, recurrent episode, moderate F33.1 and 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 [address]- [address] Jan, Onychomycosis B35.1 and Neuropathy G62.9 [place] [id number] [place] [address]- 0013 Dec, [address] [address] Dec, [facility] [address], [place] [address] Nov, [facility] [address], [place] [address] Aug, [facility] [address], [place] [address] Aug, [facility] [address], [place] [address] Jul, [facility] [address] [place] [id number] [place] [address] 242857- 1876 Jul, [facility] [address], [place] [address] Jul, Decubitus ulcer of left thigh, stage 2 L89.892 [facility] [address], [place] [address] 17 Jul, 2016 Decubitus ulcer of left thigh, stage 2 L89.892 [facility] [address], [place] [address] 17 Jul, 2016 [facility] [address], [place] [address] 15 Jul, 2016 Decubitus ulcer of left thigh, stage 2 L89.892 [facility] [address], [place] [address] 9[address] 14 Jul, 2016 [facility] [address] [place] [id number] [address] 28[address] 13 Jul, 2016 Cellulitis of other specified site L03.818 ; Illicit drug use F19.90 and Decubitus ulcer of left thigh, stage 2 L89.892 [facility] [address], [place] [address] 08 Jul, 2016 [facility] [address] [place] [id number] [place] [address] 73851- 2967 Jul, Cellulitis of right breast N61.0 [facility] [address] [place] [id number] [place] [address] 38017- 0385 Jun, [facility] [address] [place] [id number] [place] [address] 75312- 9716 Jun, [place] [address] [address] Jun, Wheezing R06.2 and Arthralgia, unspecified joint M25.50 [place] [address] [address]- 46[address] May, [place] [address] [place] [id number] [place] [address] 16590- 9983 May, [place] [address] [address]- 5999 May, [place] [address] [place] [id number] [place] [address] 96424- 8096 May, Shortness of breath R06.02 [place] [address] [place] [id number] [place] [address] 18950- 5053 May, Onychomycosis B35.1 and Fissure in skin of foot R23.4 [place] [address] [place] [id number] [place] [address] 95236- 7245 Apr, [facility] [address] [place] [id number] [place] [address] -6964 18 Apr, 2016 Dizziness R42 [place] [address] [address]- 2490 14 Apr, 2016 Shortness of breath R06.02 ; Essential hypertension I10 ; Dizziness R42 and On home oxygen therapy Z99.81 [place] [address] [place] [id number] [place] [address] 07668- 9293 10 Apr, 2016 [place] [address], [place] [address]- 8526 Apr, [facility] [address], [place] [address]- 2426 Apr, [facility] [address], [place] [address]- 6206 Apr, [facility] [address] [place] [id number] [place] [address] 17654- 9846 Apr, [facility] [address] [facility] [id number] [place] [address] 40777- 3727 Apr, [facility] [address] [place] [id number] [place] [address] 84408- 3794 Apr, [facility] [address] [id number] [address] 99[address] Mar, Mild chronic obstructive pulmonary disease J44.9 [facility] [address] [place] [id number] [place] [address] 27697- 9338 Mar, [facility] [address], [place] [address]- 2[address] Mar, Epigastric pain R10.13 ; Low back pain M54.5 ; Other chronic pain G89.29 and Breast cancer screening Z12.39 [facility] [address], [place] [address]- 3[address] Mar, [facility] [address], [place] [address]- 1031 Mar, [facility] [address], [place] [address]- 8827 Feb, [facility] [address], [place] [address]- 8243 Feb, [facility] [address], [place] [address]- 8556 Feb, 2016 Fissure in skin of foot R23.4 and Onychomycosis B35.1 [place] [address] [place] [address] 36255- 4413 Jan, 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 [place] [address] [place] [id number] [place] [address] 49386- 2326 Dec, 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 [place] [address] [place] [id number] [place] [address] 34176- 0545 Dec, Mild persistent asthma without complication J45.30 ; Dysthymic disorder F34.1 and Upper respiratory tract infection, unspecified type J06.9 [place] [address] [place] [id number] [place] [address] 15746- 6040 Nov, 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 [place] [address] [place] [id number] [place] [address] 22491- 7739 October, 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 [place] [address] [place] [id number] [place] [address] 44112- 0608 Sep, Panic disorder without agoraphobia F41.0 ; 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 and Dysthymic disorder F34.1 [place] [address] [place] [id number] [place] [address] 89078- 3680 Sep, Panic attacks F41.0 [place] [address] [place] [id number] [place] [address] 09850- 5566 Sep, [place] [address] [place] [id number] [place] [address] 32883- 6484 Sep, Panic disorder without agoraphobia F41.0 ; Varicose veins of both lower extremities I83.93 and Fatigue R53.83 [place] [address] [place] [id number] [place] [address] 63876- 0062 Sep, Fatigue R53.83 [facility] [address] [place] [id number] [place] [address] 70828- 3970 Sep, [place] [address] [place] [address]- 7103 Aug, [place] [address] [place] [address] 86865- 2945 Aug, [place] [address] [place] [id number] [place] [address] 73858- 3411 Aug, 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 [place] [address] [place] [id number] [place] [address] 17819- 1209 Aug, Panic disorder without agoraphobia F41.0 ; 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 and Dysthymic disorder F34.1 [place] [address] [place] [id number] [place] [address] 75236- 4550 Aug, Shortness of breath R06.02 ; Panic attacks F41.0 ; COPD ( chronic obstructive pulmonary disease) J44.9 ; Tobacco abuse Z72.0 ; Family history of diabetes mellitus Z83.3 and Weight gain R63.5 [place] [address] [place] [id number] [place] [address] 23580- 8434 Aug, [place] [address] [place] [id number] [place] [address] 88498- 1334 Jul, [place] [id number] [place] [address] 31417- 6471 Jun, Onychomycosis B35.1 ; Neuropathy G62.9 and Impaired circulation I99.9 [place] [address] [place] [address] 84065- 3411 Mar, Fissure in skin of foot R23.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 [place] [address] [place] [id number] [place] [address] 85582- 8367 18 Feb, 2015 Family history of coronary arteriosclerosis V17.3 [place] [id number] [place] [address] 48372- 6914 15 Feb, 2015 Allergic rhinitis due to pollen 477.0 ; Unspecified breast screening V76.10 ; Anxiety 300.00 and Family history of coronary arteriosclerosis V17.3 [facility] [address], [place] [address]- 4566 Jan, [facility] [address], [place] [address]- 0542 Dec, [facility] [address] [place] [id number] [place] [address] 54014- 4973 Dec, Onychomycosis 110.1 and Skin fissures 709.8 [facility] [address] [place] [id number] [place] [address] 93729- 1995 Sep, [facility] [address] [place] [id number] [address]- 3744 Sep, [facility] [address] [place] [id number] [place] [address] 73685- 4245 Aug, [facility] [address], [place] [address]- 8835 Aug, [facility] [address], [place] [address]- 9923 Jul, [facility] [address], [place] [address]- 1692 Jul, [facility] [address], [place] [address]- 6152 Jun, [facility] [address], [place] [address]- 6728 Jun, [facility] [address] 3512 Jun, [facility] [address]- 2977 Jun, [facility] [address] 0595 Jun, [facility] [place] [facility] [address] [id number] [place] [address]- 5937 May, [facility] [place] [facility] [address] [id number] [place] [address]- 0656 May, [facility] [place] [facility] [address] [id number] [place] [address]- 1751 May, [facility] [place] [facility] [address] [id number] [place] [address]- 6490 May, [facility] [place] [facility] [address] [id number] [place] [address]- 7121 May, [facility] [place] [facility] [address] [id number] [place] [address]- 3519 May, [facility] [place] [facility] [address] [id number] [place] [address]- 8374 May, [facility] [place] [facility] [address] [id number] [place] [address]- 1177 May, [facility] [place] [facility] [address] [id number] [place] [address]- 1443 Apr, [facility] [place] [facility] [address] [id number] [place] [address]- 7164 Apr, [facility] [place] [facility] [address] [id number] [place] [address]- 7677 Apr, [facility] [place] [facility] [address] [id number] [place] [address]- 1113 Apr, [facility] [place] [facility] [address] [id number] [place] [address]- 6010 Apr, [facility] [place] [facility] [address] [id number] [place] [address]- 8392 Apr, [facility] [place] [facility] [address] [id number] [place] [address]- 8803 Apr, [facility] [place] [facility] [address] [id number], [place] [address]- 6552 Apr, [facility] [place] [facility] [address] [id number] [place] [address]- 7122 Apr, [facility] [place] [facility] [address] [id number] [place] [address]- 3637 Apr, [facility] [place] [facility] [address] [id number] [place] [address]- 5427 Mar, [facility] [place] [facility] [address] [id number] [place] [address]- 2509 Mar, [facility] [place] [facility] [address] [id number] [place] [address]- 8864 Mar, [facility] [place] [facility] [address] [id number] [place] [address]- 8506 Mar, [facility] [place] [facility] [address] [id number] [place] [address]- 2029 Mar, [facility] [place] [facility] [address] [id number], [place] [address]- 0616 Mar, [facility] [place] [facility] [address] [id number] [place] [address]- 4466 Mar, [facility] [place] [facility] [address] [id number] [place] [address]- 6491 Mar, [facility] [place] [facility] [address] [id number], [place] [address]- 6897 Mar, [facility] [place] [facility] [address] [id number], [place] [address]- 9520 Mar, [facility] [place] [facility] [address] [id number] [place] [address]- 1210 Mar, [facility] [place] [facility] [address] [id number], [place] [address]- 2869 Mar, [facility] [place] [facility] [address] [id number], [place] [address]- 8708 Mar, [facility] [place] [facility] [address] [id number] [place] [address]- 7264 22 Mar, 2013 [facility] [place] [facility] [address] [id number] [place] [address]- 2660 22 Mar, 2013 [facility] [place] [facility] [address] [id number] [place] [address]- 6512 20 Mar, 2013 [facility] [place] [facility] [address] [id number] [place] [address]- 8810 20 Mar, 2014 [facility] [place] [facility] [address] [id number] [place] [address]- 8236 16 Mar, 2013 [facility] [place] [facility] [address] [id number] [place] [address]- 2201 16 Mar, 2014 [facility] [place] [facility] [address] [id number] [place] [address]- 6463 15 Mar, 2014 [facility] [place] [facility] [address] [id number] [place] [address]- 5801 14 Mar, 2014 [facility] [place] [facility] [address] [id number] [place] [address]- 1547 14 Mar, 2014 [facility] [place] [facility] [address] [id number] [place] [address]- 6402 14 Mar, 2014 [facility] [place] [facility] [address] [id number] [place] [address]- 6442 14 Mar, 2014 [facility] [place] [facility] [address] [id number] [place] [address]- 5353 Mar, [facility] [place] [facility] [address] [id number] [place] [address]- 4355 Mar, [facility] [place] [facility] [address] [id number] [place] [address]- 0557 Mar, 2013 [facility] [place] [facility] [address] [id number] [place] [address]- 1695 Mar, 2013 [facility] [place] [facility] [address] [id number] [place] [address]- 7557 30 Feb, 2014 [facility] [place] [facility] [address] [id number] [place] [address]- 5985 30 Feb, 2013 [facility] [place] [facility] [address] [id number] [place] [address]- 8536 30 Feb, 2013 [facility] [place] [facility] [address] [id number] [place] [address]- 8564 30 Feb, 2013 [facility] [place] [facility] [address] [id number] [place] [address]- 6192 Feb, 2013 [facility] [place] [facility] [address] [id number] [place] [address]- 0071 Feb, 2013 [facility] [place] [facility] [address] [id number] [place] [address]- 1399 Feb, 2013 [facility] [place] [facility] [address] [id number] [place] [address]- 9754 Feb, 2013 [facility] [place] [facility] [address] [id number] [place] [address]- 4574 Feb, 2013 [facility] [place] [facility] [address] [id number] [place] [address]- 5660 Feb, 2013 [facility] [place] [facility] [address] [id number] [place] [address]- 3249 Feb, 2013 [facility] [place] [facility] [address] [id number] [place] [address]- 5660 Feb, 2013 [facility] [place] [facility] [address] [id number], [place] [address]- 1149 Jan, [facility] [place] [facility] [address] [id number] [place] [address]- 0016 Jan, [facility] [place] [facility] [address] [id number] [place] [address]- 6623 Jan, [facility] [place] [facility] [address] [id number] [place] [address]- 6152 Jan, [facility] [place] [facility] [address] [id number] [place] [address]- 7868 Jan, [facility] [place] [facility] [address] [id number] [place] [address]- 8829 Jan, [facility] [place] [facility] [address] [id number] [place] [address]- 4791 Jan, [facility] [place] [facility] [address] [id number] [place] [address]- 7797 Jan, [facility] [place] [facility] [address] [id number] [place] [address]- 9893 Jan, [facility] [place] [facility] [address] [id number] [place] [address]- 8344 Jan, [facility] [place] [facility] [address] [id number] [place] [address]- 3469 Jan, [facility] [place] [facility] [address] [id number] [place] [address]- 5341 Jan, [facility] [place] [facility] [address] [id number] [place] [address]- 3588 Jan, [facility] [place] [facility] [address] [id number] [place] [address]- 6222 Dec, [facility] [place] [facility] [address] [id number] [place] [address]- 2249 Dec, [facility] [place] [facility] [address] [id number] [place] [address]- 0558 Dec, [facility] [place] [facility] [address] [id number] [place] [address]- 8007 Dec, [facility] [place] [facility] [address] [id number] [place] [address]- 5974 Dec, [facility] [place] [facility] [address] [id number] [place] [address]- 1842 Dec, [facility] [place] [facility] [address] [id number] [place] [address]- 7173 Dec, [facility] [place] [facility] [address] [id number] [place] [address]- 1221 Dec, 2013 [facility] [place] [facility] [address] [id number] [place] [address]- 5730 Dec, 2013 [facility] [place] [facility] [address] [id number] [place] [address]- 0446 Dec, 2013 [facility] [place] [facility] [address] [id number] [place] [address]- 3725 Dec, 2013 [facility] [place] [facility] [address] [id number] [place] [address]- 6480 Dec, 2013 [facility] [place] [facility] [address] [id number] [place] [address]- 8136 Dec, 2013 [facility] [place] [facility] [address] [id number] [place] [address]- 8792 Dec, 2013 [facility] [place] [facility] [address] [id number] [place] [address]- 8361 Dec, 2013 [facility] [place] [facility] [address] [id number] [place] [address]- 2049 Dec, [facility] [place] [facility] [address] [id number] [place] [address]- 5485 Dec, [facility] [place] [facility] [address] [id number] [place] [address]- 8044 Dec, [facility] [place] [facility] [address] [id number] [place] [address]- 2242 Nov, [facility] [place] [facility] [address] [id number] [place] [address]- 7059 Nov, [facility] [place] [facility] [address] [id number] [place] [address]- 4820 Nov, [facility] [place] [facility] [address] [id number] [place] [address]- 3160 Nov, [facility] [place] [facility] [address] [id number] [place] [address]- 3088 Nov, [facility] [place] [facility] [address] [id number] [place] [address]- 0466 Nov, [facility] [place] [facility] [address] [id number] [place] [address]- [address] Nov, [facility] [place] [facility] [address] [id number] [place] [address] Nov, [facility] [place] [facility] [address] [id number] [place] [address] Nov, [facility] [place] [facility] [address] [id number] [place] [address] Nov, [facility] [place] [facility] [address] [id number] [place] [address] Nov, [facility] [place] [facility] [address] [id number] [place] [address] Nov, [facility] [place] [facility] [address] [id number] [place] [address] Nov, [facility] [place] [facility] [address] [id number] [place] [address] Nov, [facility] [place] [facility] [address] [id number] [place] [address] Nov, [facility] [place] [facility] [address] [id number], [place] [address] Nov, [facility] [place] [facility] [address] [id number], [place] [address] Nov, [facility] [place] [facility] [address] [id number] [place] [address] Nov, [facility] [place] [facility] [address] [id number] [place] [address] Nov, [facility] [place] [facility] [address] [id number] [place] [address] Nov, [facility] [place] [facility] [address] [id number] [place] [address] October, [facility] [address] [id number] [place] [address] October, [facility] [place] [facility] [address] [id number] [place] [address] October, [facility] [place] [facility] [address] [id number] [place] [address] October, [facility] [place] [facility] [address] [id number] [place] [address] Sep, [facility] [place] [facility] [address] [id number] [place] [address] Sep, [facility] [place] [facility] [address] [id number] [place] [address] Sep, [facility] [place] [facility] [address] [id number] [place] [address] Sep, [facility] [place] [facility] [address] [id number] [place] [address]- [address] Sep, [facility] [place] [facility] [address] [id number] [place] [address] Sep, [facility] [place] [facility] [address] [id number] [place] [address]- [address] Sep, [facility] [place] [facility] [address] [id number] [place] [address] Sep, [facility] [place] [facility] [address] [id number] [place] [address] Sep, [facility] [place] [facility] [address] [id number] [place] [address] Aug, [facility] [place] [facility] [address] [id number] [place] [address] Aug, [facility] [place] [facility] [address] [id number] [place] [address] Aug, [facility] [place] [facility] [address] [id number] [place] [address] Aug, [facility] [place] [facility] [address] [id number] [place] [address] Aug, [facility] [place] [facility] [address] [id number] [place] [address] Aug, [facility] [place] [facility] [address] [id number] [place] [address] Aug, [facility] [place] [facility] [address] [id number] [place] [address] Aug, [facility] [place] [facility] [address] [id number] [place] [address] Jul, [facility] [place] [facility] [address] [id number] [place] [address] Jul, [facility] [place] [facility] [address] [id number] [place] [address] Jun, [facility] [place] [facility] [address] [id number] [place] [address] Jun, [facility] [place] [facility] [address] [id number] [place] [address] Jun, [facility] [place] [facility] [address] [id number] [place] [address]- [address] Jun, [facility] [place] [facility] [address] [id number] [place] [address] Jun, [facility] [place] [facility] [address] [id number] [place] [address] Jun, [facility] [place] [facility] [address] [id number] [place] [address] Jun, [facility] [place] [facility] [address] [id number] [place] [address] Jun, [facility] [place] [facility] [address] [id number] [place] [address] 15 Jun, 2013 [facility] [address] [id number] [place] [address] Jun, [facility] [place] [facility] [address] [id number] [place] [address] Jun, [facility] [place] [facility] [address] [id number] [place] [address] 7968 Jun, [facility] [place] [facility] [address] [id number] [place] [address] May, [facility] [place] [facility] [address] [id number] [place] [address] May, [facility] [place] [facility] [address] [id number] [place] [address] May, [facility] [place] [facility] [address] [id number] [place] [address] 94[address] May, [facility] [place] [facility] [address] [id number] [place] [address] 31 May, 2013 [facility] [address] [id number] [place] [address] 31 May, 2013 [facility] [place] [facility] [address] [id number] [place] [address]- [address] 26 May, 2013 [facility] [place] [facility] [address] [id number] [place] [address] 23 May, 2013 [facility] [place] [facility] [address] [id number] [place] [address]- 0[address] 23 May, 2013 [facility] [place] [facility] [address] [id number] [place] [address]- 9769 16 May, 2013 [facility] [place] [facility] [address] [id number] [place] [address]- 0413 16 May, 2013 [facility] [place] [facility] [address] [id number] [place] [address] 16 May, 2013 [facility] [place] [facility] [address] [id number] [place] [address]- [address]175 May, [facility] [address] [id number] [place] [address]- [address] Apr, [facility] [place] [facility] [address] [id number] [place] [address] 9474 Apr, [facility] [address] [id number] [place] [address]841 Mar, [facility] [place] [facility] [address] [id number] [place] [address]- 8073 Mar, [facility] [address] [id number] [place] [address] Feb, [facility] [place] [facility] [address] [id number] [place] [address] 6937 Feb, [facility] [place] [facility] [address] [id number] [place] [address] Feb, [facility] [address] [id number] [place] [address] Feb, [facility] [place] [facility] [address] [id number] [place] [address]- 12[address] Jan, [facility] [place] [facility] [address] [id number] [place] [address] Jan, [facility] [place] [facility] [address] [id number] [place] [address]- 1075 Jan, [facility] [place] [facility] [address] [id number] [place] [address]- 4100 Jan, [facility] [place] [facility] [address] [id number] [place] [address] 2687 Jan, [facility] [place] [facility] [address] [id number] [place] [address] 6486 Jan, [facility] [place] [facility] [address] [id number] [place] [address] 5908 Dec, [facility] [address] [id number] [place] [address]- 4453 Dec, [facility] [place] [facility] [address] [id number] [place] [address] 1347 Dec, [facility] [place] [facility] [address] [id number] [place] [address] 8320 Dec, [facility] [place] [facility] [address] [id number] [place] [address] 0257 Nov, [facility] [place] [facility] [address] [id number] [place] [address] 1504 October, [facility] [place] [facility] [address] [id number] [place] [address] 5[address] October, [facility] [place] [facility] [address] [id number] [place] [address]- 5360 October, [facility] [place] [facility] [address] [id number] [place] [address] 4167 Sep, [facility] [place] [facility] [address] [id number] [place] [address]- 3197 Sep, [facility] [place] [facility] [address] [id number] [place] [address]- 3856 Jun, [facility] [place] [facility] [address] [id number] [place] [address]- 6904 Jun, [facility] [place] [facility] [address] [id number] [place] [address]- 1214 Jun, [facility] [place] [facility] [address] [id number] [place] [address]- 4865 Apr, [facility] [place] [facility] [address] [id number] [place] [address]- 4586 Apr, [facility] [place] [facility] [address] [id number] [place] [address]- 8479 Apr, [facility] [place] [facility] [address] [id number] [place] [address] 6537 Apr, [facility] [place] [facility] [address] [id number] [place] [address] 1530 Mar, [facility] [place] [facility] [address] [id number] [place] [address]- 5347 Mar, [facility] [place] [facility] [address] [id number] [place] [address]- 1736 Mar, [facility] [place] [facility] [address] [id number] [place] [address]- 2852 Mar, [facility] [place] [facility] [address] [id number] [place] [address] Feb, [facility] [place] [facility] [address] [id number] [place] [address] 9742 Feb, [facility] [place] [facility] [address] [id number] [place] [address]- 2187 Feb, [facility] [place] [facility] [address] [id number] [place] [address] 8974 Jan, [facility] [place] [facility] [address] [id number] [place] [address] 2894 Jan, [facility] [place] [facility] [address] [id number] [place] [address]- 8682 Jan, [facility] [place] [facility] [address] [id number] [place] [address] 3348 Jan, [facility] [place] [facility] [address] [id number] [place] [address]- 7672 Dec, [facility] [place] [facility] [address] [id number] [place] [address]- 4320 Dec, [facility] [place] [facility] [address] [id number] [place] [address]- 9348 Nov, [facility] [place] [facility] [address] [id number] [place] [address]- 5373 Nov, [facility] [place] [facility] [address] [id number] [place] [address]- 4235 October, [facility] [place] [facility] [address] [id number] [place] [address]- 0376 October, [facility] [place] [facility] [address] [id number] [place] [address]- 0086 October, [facility] [place] [facility] [address] [id number] [place] [address]- 1454 Sep, [facility] [place] [facility] [address] [id number] [place] [address]- 7320 Sep, [facility] [place] [facility] [address] [id number] [place] [address]- 6517 Sep, [facility] [place] [facility] [address] [id number] [place] [address]- 2597 Aug, [facility] [place] [facility] [address] [id number] [place] [address]- 9383 Aug, [facility] [place] [facility] [address] [id number] [place] [address]- 3115 Aug, [facility] [place] [facility] [address] [id number] [place] [address]- 3381 Aug, [facility] [place] [facility] [address] [id number] [place] [address]- 5192 Aug, [facility] [place] [facility] [address] [id number] [place] [address]- 5070 Jul, [facility] [place] [facility] [address] [id number] [place] [address]- 8234 16 Jul, 2011 [facility] [place] [facility] [address] [id number] [place] [address]- 6363 13 Jul, 2011 [facility] [place] [facility] [address] [id number] [place] [address]- 3539 09 Jul, 2011 [facility] [place] [facility] [address] [id number] [place] [address]- 8333 Jul, [facility] [address] [id number] [place] [address]- 1115 Jul, [facility] [place] [facility] [address] [id number] [place] [address]- 4136 Jul, [facility] [place] [facility] [address] [facility] [id number] [place] [address]- 1243 Jul, [facility] [place] [facility] [address] [id number] [place] [address]- 8956 Jun, [facility] [address] [id number] [place] [address]- 6889 Jun, [facility] [place] [facility] [address] [id number] [place] [address]- 4335 May, [facility] [address] [facility] [id number] [place] [address]- 5763 May, [facility] [place] [facility] [address] [facility] [id number] [place] [address]- 3495 May, [facility] [place] [facility] [address] [facility] [id number] [place] [address]- 4595 May, [facility] [place] [facility] [address] [facility] [id number] [place] [address]- 1931 Apr, [facility] [place] [facility] [address] [facility] [id number] [place] [address]- 5673 Apr, [facility] [place] [facility] [address] [id number], [place] [address]- [address]600 Apr, [facility] [place] [facility] [address] [facility] [id number] [place] [address]- 1930 Mar, [facility] [place] [facility] [address] [facility] [id number] [place] [address]- 2984 Mar, [facility] [place] [facility] [address] [facility] [id number], [place] [address]- 6956 Mar, [facility] [place] [facility] [address] [id number] [place] [address]- 7516 2011 [facility] [place] [facility] [address] [id number] [place] [address]- 1866 Dec, [facility] [place] [facility] [address] [id number] [place] [address] 2546 October, [facility] [place] [facility] [address] [id number] [place] [address] 2546 28 May, 2010 [facility] [place] [facility] [address] [id number] [place] [address] 2546 13 May, 2010 [facility] [place] [facility] [address] [id number] [place] [address]- 6756 13 May, 2010 [facility] [place] [facility] [address] [id number] [place] [address]- 9636 May, [facility] [place] [facility] [address] [id number] [place] [address]- 7991 Mar, [facility] [place] [facility] [address] [id number] [place] [address]- 7870 Mar, [facility] [place] [facility] [address] [id number] [place] [address]- 6249 31 May, 2009 [facility] [place] [facility] [address] [id number] [place] [address]- 1446 30 May, 2009 [facility] [place] [facility] [address] [id number] [place] [address] 2546 May, [facility] [place] [facility] [address] [id number] [place] [address] 2546 May, [facility] [place] [facility] [address] [id number] [place] [address] 2546 Apr, [facility] [place] [facility] [address] [id number] [place] [address]- 2546 02 Apr, 2009 [facility] [place] [facility] [address] [id number] [place] [address]- 3751 October, IMMUNIZATIONS No Known Immunizations SOCIAL HISTORY Never Assessed REASON FOR VISIT Medication update PLAN OF CARE VITAL SIGNS MEDICATIONS Medication Instructions Dosage Frequency Start Date End Date Duration Status Simvastatin 40 MG Orally Once a day 1 tablet in the evening 24h Active RESULTS No Results PROCEDURES No [...]
--- OUTSIDE RECORDS SUMMARY | 2018-03-17 11:22 | XMS REPORT ---
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 Active 00031229 Problem On home oxygen therapy Z99.81 Active 075093675911 Problem Mild chronic obstructive pulmonary disease J44.9 Active 546901457 Problem Neuropathy G62.9 Active 350931065 Problem Essential hypertension I10 Active 28431578 Problem History of illicit drug use Z87.898 Active 994648154 Problem MRSA (methicillin resistant staph aureus) culture positive Z22.322 Active 040474607 Problem Snoring R06.83 Active 36324072 Problem 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 Active 57552548 Problem Panic disorder without agoraphobia F41.0 Active 04875153 Problem Impaired circulation I99.9 Active 99305403 Problem Fatigue R53.83 Active 96038429 Problem Dysthymic disorder F34.1 Active 74077372 Problem Varicose veins of both lower extremities I83.93 Active 97851252 ALLERGIES Substance Reaction Event Type Date Status Sulfamethoxazole-Trimethoprim Unknown Drug Allergy Jan, Active Codeine Phosphate swelling Drug Allergy Jan, Active ENCOUNTERS Encounter Location Date Diagnosis [facility] [address] [facility] [id number] [address] Nov, [facility] [address] [facility] [id number] [place] [address] Sep, [place] [address] [place] [id number] [place] [address] 86015- 2905 Aug, Major depressive disorder, recurrent episode, moderate F33.1 and 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 [place] [address] [place] [id number] [place] [address] 07849- 8131 14 Aug, 2017 Dysthymic disorder F34.1 ; Non-pressure chronic ulcer of left thigh, unspecified ulcer stage L97.129 ; Tobacco abuse Z72.0 ; Mild chronic obstructive pulmonary disease J44.9 and Forgetfulness R68.89 [place] [address] [address] Aug, Onychomycosis B35.1 ; Fissure in skin of foot R23.4 and Foot callus L84 [facility] [place] [id number] [place] [address]00 -9986 Jul, Right medial knee pain M25.561 ; Upper respiratory tract infection, unspecified type J06.9 and BMI 40.0-44.9, adult Z68.41 [facility] [place] [id number] [place] [address] -[address]137 08 Jul, 2017 Nausea and vomiting, intractability of vomiting not specified, unspecified vomiting type R11.2 ; Left ear pain H92.02 and Gastric pain R10.9 [place] [id number] [place] [address] 89833- 0461 Apr, Encounter for immunization Z23 [place] [address] [place] [address] [id number] [place] [address] 70485- 0118 Apr, Onychomycosis B35.1 ; Xerosis of skin L85.3 ; Neuropathy G62.9 and 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 [place] [address] [place] [id number] [place] [address] 95699- 8123 Jan, Onychomycosis B35.1 and Neuropathy G62.9 [place] [address] 02[address]- 4578 Dec, [facility] [address] [address] Dec, [facility] [address] [address] Nov, [facility] [address] [address] Aug, [facility] [address] [address] Aug, [facility] [address] [address] 0625 Jul, [facility] [address] [address] 9928 Jul, [facility] [address] [address] 65[address] Jul, Decubitus ulcer of left thigh, stage 2 L89.892 [facility] [address] [address] 8301 17 Jul, 2016 Decubitus ulcer of left thigh, stage 2 L89.892 [facility] [address] [address] 0385 17 Jul, 2016 [facility] [address] [place] [id number] [address] 6[address] 15 Jul, 2016 Decubitus ulcer of left thigh, stage 2 L89.892 [facility] [address] [place] [id number] [address] 9017 14 Jul, 2016 [facility] [address] [address] 64[address] 13 Jul, 2016 Cellulitis of other specified site L03.818 ; Illicit drug use F19.90 and Decubitus ulcer of left thigh, stage 2 L89.892 [facility] [address] [place] [address] [id number] [place] [address] 90877- 9262 08 Jul, 2016 [facility] [address] [address] [id number] [place] [address] 08650- 5983 Jul, Cellulitis of right breast N61.0 [facility] [address] [place] [address] [id number] [place] [address] 43713- 0696 Jun, [facility] [address] 12[address]- 6[address] Jun, [facility] [address] [address]15- 5465 Jun, Wheezing R06.2 and Arthralgia, unspecified joint M25.50 [place] [address] [place] [id number] [place] [address] 91794- 3149 May, [place] [address] 20523- 0359 May, [facility] [address] [place] [id number] [place] [address] 87952- 4652 May, [place] [address] 34911- 6165 May, Shortness of breath R06.02 [place] [address] [place] [address] [id number] [place] [address] 26158- 6680 02 May, 2016 Onychomycosis B35.1 and Fissure in skin of foot R23.4 [facility] [address] [place] [id number] [place] [address] 71564- 2099 Apr, [facility] [address] 68791 -1164 18 Apr, 2016 Dizziness R42 [place] [address] [address] [id number] [place] [address] 21164- 9536 14 Apr, 2016 Shortness of breath R06.02 ; Essential hypertension I10 ; Dizziness R42 and On home oxygen therapy Z99.81 [place] [address] [id number] [address]- 5105 Apr, [facility] [address] [facility] [id number] [place] [address] 9518 Apr, [facility] [address] [facility] [id number] [place] [address]- 2025 Apr, [facility] [id number] [place] [address] 16284- 9040 Apr, [facility] [address] [facility] [id number] [place] [address]- 6142 Apr, [facility] [id number] [place] [address] 66946- 8306 Apr, [facility] [address] [address]- 2679 Apr, [facility] [address] [place] [address] [id number] [place] [address] 66252- 5260 Mar, Mild chronic obstructive pulmonary disease J44.9 [facility] [address] [address]- 2834 Mar, [facility] [address] [address]- 6167 Mar, Epigastric pain R10.13 ; Low back pain M54.5 ; Other chronic pain G89.29 and Breast cancer screening Z12.39 [facility] [address] [address]- 3067 Mar, [facility] [address] [address]- 0066 Mar, [facility] [address] [address]- 3504 Feb, [facility] [address] [address]- 7972 08 Feb, 2016 [facility] [address] [address]- 9824 Feb, Fissure in skin of foot R23.4 and Onychomycosis B35.1 [place] [address] [place] [id number] [place] [address] 90759- 0081 Jan, 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 [place] [address] [place] [address] [id number] [place] [address] 52104- 2978 Dec, 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 [place] [address] 61524- 4407 Dec, Mild persistent asthma without complication J45.30 ; Dysthymic disorder F34.1 and Upper respiratory tract infection, unspecified type J06.9 [place] [address] [place] [id number] [place] [address] 02094- 8539 Nov, 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 [place] [address] [address] [id number] [place] [address] 08553- 2472 October, 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 [place] [address] [address] [id number] [place] [address] 54550- 7750 Sep, Panic disorder without agoraphobia F41.0 ; 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 and Dysthymic disorder F34.1 [place] [address] [place] [id number] [place] [address] 65050- 5168 Sep, Panic attacks F41.0 [place] [address] [place] [id number] [place] [address] 37943- 1343 Sep, [place] [address] [place] [id number] [place] [address] 11022- 1851 Sep, Panic disorder without agoraphobia F41.0 ; Varicose veins of both lower extremities I83.93 and Fatigue R53.83 [place] [address] [place] [id number] [place] [address] 20234- 6359 14 Sep, 2015 Fatigue R53.83 [place] [address] [place] [id number] [place] [address] 81973- 9985 Sep, [place] [address] [address]- 6277 Aug, [place] [id number] [place] [address] 53726- 0418 Aug, [place] [id number] [place] [address] 12668- 1775 Aug, 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 [place] [address] [address]- 0478 Aug, Panic disorder without agoraphobia F41.0 ; 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 and Dysthymic disorder F34.1 [place] [address] [address]- 9100 Aug, Shortness of breath R06.02 ; Panic attacks F41.0 ; COPD ( chronic obstructive pulmonary disease) J44.9 ; Tobacco abuse Z72.0 ; Family history of diabetes mellitus Z83.3 and Weight gain R63.5 [place] [id number] [place] [address] 22331- 1755 Aug, [place] [address] [address]- 1142 Jul, [place] [address] [address]- 2720 Jun, Onychomycosis B35.1 ; Neuropathy G62.9 and Impaired circulation I99.9 [place] [address] [address]- 1363 09 Mar, 2015 Fissure in skin of foot R23.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 [place] [address] [address]- 3472 Feb, Family history of coronary arteriosclerosis V17.3 [place] [address] [place] [address] [id number] [address]- 6710 15 Feb, 2015 Allergic rhinitis due to pollen 477.0 ; Unspecified breast screening V76.10 ; Anxiety 300.00 and Family history of coronary arteriosclerosis V17.3 [facility] [address] [address]- 8116 Jan, [facility] [address] 3767 Dec, [facility] [address] [place] [address] [id number] 9130 Dec, Onychomycosis 110.1 and Skin fissures 709.8 [facility] [address] [address]- 1999 Sep, [facility] [address] [address]- 8605 Sep, [facility] [address] [address]- 7753 Aug, [facility] [address] [address]- 5346 Aug, [facility] [address] [address]- 5171 Jul, [facility] [address] [address]- 7838 Jul, [facility] [address] [address]- 5503 Jun, [facility] [address] 6071 Jun, [facility] [address] 8173 Jun, [facility] [address] [place] [id number] 5626 Jun, [facility] [id number] [place] [address]- 7352 Jun, [facility] [address] [id number] [place] [address]- 2616 May, [facility] [place] [facility] [address] [id number] [place] [address]- 1702 May, [facility] [address] [id number] [place] [address]- 4229 May, [facility] [place] [facility] [address] [id number] [place] [address]- 3034 May, [facility] [address] [id number] [place] [address]- 3787 May, [facility] [place] [facility] [address] [id number] [place] [address]- 9590 May, [facility] [place] [facility] [address] [id number] [place] [address]- 5339 May, [facility] [address] [id number] [place] [address]- 9004 May, [facility] [place] [facility] [address] [id number] [place] [address]- 2487 Apr, [facility] [address] [id number] [place] [address]- 3838 Apr, [facility] [place] [facility] [address] [id number] [place] [address]- 6590 Apr, [facility] [place] [facility] [address] [id number] [place] [address]- 2404 Apr, [facility] [place] [facility] [address] [id number] [place] [address]- 9385 Apr, [facility] [place] [facility] [address] [id number] [place] [address]- 5748 Apr, [facility] [place] [facility] [address] [id number] [place] [address]- 4326 Apr, [facility] [place] [facility] [address] [id number] [place] [address]- 9061 Apr, [facility] [place] [facility] [address] [id number] [place] [address]- 6698 Apr, [facility] [place] [facility] [address] [id number] [place] [address]- 8930 Apr, [facility] [place] [facility] [address] [id number] [place] [address]- 2444 Mar, [facility] [place] [facility] [address] [id number] [place] [address]- 9539 Mar, [facility] [place] [facility] [address] [id number] [place] [address]- 8346 Mar, [facility] [place] [facility] [address] [id number] [place] [address]- 5421 Mar, [facility] [place] [facility] [address] [id number] [place] [address]- 1288 Mar, [facility] [place] [facility] [address] [id number] [place] [address]- 3271 Mar, [facility] [place] [facility] [address] [id number] [place] [address]- 2532 Mar, [facility] [place] [facility] [address] [id number] [place] [address]- 4237 Mar, [facility] [place] [facility] [address] [id number] [place] [address]- 8160 Mar, [facility] [place] [facility] [address] [id number] [place] [address]- 4209 Mar, [facility] [place] [facility] [address] [id number] [place] [address]- 6125 Mar, [facility] [place] [facility] [address] [id number] [place] [address]- 4657 Mar, [facility] [place] [facility] [address] [id number] [place] [address]- 5205 Mar, 2013 [facility] [place] [facility] [address] [id number] [place] [address]- 4810 22 Mar, 2013 [facility] [place] [facility] [address] [id number] [place] [address]- 2589 22 Mar, 2014 [facility] [place] [facility] [address] [id number] [place] [address]- 2916 20 Mar, 2014 [facility] [place] [facility] [address] [id number] [place] [address]- 2195 20 Mar, 2013 [facility] [place] [facility] [address] [id number] [place] [address]- 8270 16 Mar, 2013 [facility] [place] [facility] [address] [id number] [place] [address]- 9651 16 Mar, 2013 [facility] [place] [facility] [address] [id number] [place] [address]- 7352 15 Mar, 2014 [facility] [place] [facility] [address] [id number] [place] [address]- 9999 14 Mar, 2014 [facility] [place] [facility] [address] [id number] [place] [address]- 8397 14 Mar, 2014 [facility] [place] [facility] [address] [id number] [place] [address]- 9209 14 Mar, 2013 [facility] [place] [facility] [address] [id number] [place] [address]- 8096 14 Mar, 2013 [facility] [place] [facility] [address] [id number] [place] [address]- 0721 09 Mar, 2013 [facility] [place] [facility] [address] [id number] [place] [address]- 7200 09 Mar, 2013 [facility] [place] [facility] [address] [id number] [place] [address]- 9554 09 Mar, 2013 [facility] [place] [facility] [address] [id number] [place] [address]- 3019 09 Mar, 2013 [facility] [place] [facility] [address] [id number] [place] [address]- 6682 30 Sep, 2013 [facility] [place] [facility] [address] [id number] [place] [address] 2546 30 Sep, 2013 [facility] [place] [facility] [address] [id number] [place] [address] 2546 30 Feb, 2013 [facility] [place] [facility] [address] [id number] [place] [address] 2546 30 Feb, 2013 [facility] [place] [facility] [address] [id number] [place] [address]- 2549 26 Feb, 2013 [facility] [place] [facility] [address] [id number] [place] [address]- 6779 26 Feb, 2013 [facility] [place] [facility] [address] [id number] [place] [address]- 1145 09 Feb, 2013 [facility] [place] [facility] [address] [id number] [place] [address]- 7039 09 Feb, 2013 [facility] [place] [facility] [address] [id number] [place] [address] 2543 Feb, 2013 [facility] [place] [facility] [address] [id number] [place] [address]- 2543 Feb, 2013 [facility] [place] [facility] [address] [id number] [place] [address]- 9779 Feb, 2013 [facility] [place] [facility] [address] [id number] [place] [address]- 2545 Feb, 2013 [facility] [place] [facility] [address] [id number] [place] [address]- 2547 Jan, [facility] [place] [facility] [address] [id number] [place] [address]- 9674 Jan, [facility] [place] [facility] [address] [id number] [place] [address]- 6040 Jan, [facility] [place] [facility] [address] [id number] [place] [address]- 3595 Jan, [facility] [place] [facility] [address] [id number] [place] [address]- 1828 Jan, [facility] [place] [facility] [address] [id number] [place] [address]- 7390 Jan, [facility] [place] [facility] [address] [id number] [place] [address]- 8664 Jan, [facility] [place] [facility] [address] [id number] [place] [address]- 8517 Jan, [facility] [place] [facility] [address] [id number] [place] [address]- 5762 Jan, [facility] [place] [facility] [address] [id number] [place] [address]- 7239 Jan, [facility] [place] [facility] [address] [id number] [place] [address]- 5788 Jan, [facility] [place] [facility] [address] [id number] [place] [address]- 1800 Jan, [facility] [place] [facility] [address] [id number] [place] [address]- 0133 Jan, [facility] [place] [facility] [address] [id number] [place] [address]- 9711 Dec, [facility] [place] [facility] [address] [id number] [place] [address]- 3243 Dec, [facility] [place] [facility] [address] [id number] [place] [address]- 4488 Dec, [facility] [place] [facility] [address] [id number] [place] [address]- 4798 Dec, [facility] [place] [facility] [address] [id number] [place] [address]- 9193 Dec, [facility] [place] [facility] [address] [id number] [place] [address]- 6913 Dec, [facility] [place] [facility] [address] [id number] [place] [address]- 4972 Dec, 2013 [facility] [place] [facility] [address] [id number] [place] [address]- 8848 Dec, 2013 [facility] [place] [facility] [address] [id number] [place] [address]- 8139 Dec, 2013 [facility] [place] [facility] [address] [id number] [place] [address]- 3940 Dec, 2013 [facility] [place] [facility] [address] [id number] [place] [address]- 8517 Dec, 2013 [facility] [place] [facility] [address] [id number] [place] [address]- 9262 Dec, [facility] [place] [facility] [address] [id number] [place] [address] Dec, [facility] [place] [facility] [address] [id number] [place] [address] Dec, 2013 [facility] [place] [facility] [address] [id number] [place] [address] Dec, [facility] [place] [facility] [address] [id number] [place] [address] Dec, [facility] [place] [facility] [address] [id number] [place] [address] Dec, [facility] [place] [facility] [address] [id number] [place] [address] Dec, [facility] [place] [facility] [address] [id number] [place] [address] Nov, [facility] [place] [facility] [address] [id number] [place] [address] Nov, [facility] [place] [facility] [address] [id number] [place] [address] Nov, [facility] [place] [facility] [address] [id number] [place] [address] Nov, [facility] [place] [facility] [address] [id number] [place] [address] Nov, [facility] [place] [facility] [address] [id number] [place] [address] Nov, [facility] [place] [facility] [address] [id number] [place] [address] Nov, [facility] [place] [facility] [address] [id number] [place] [address] Nov, [facility] [place] [facility] [address] [id number] [place] [address] Nov, [facility] [place] [facility] [address] [id number] [place] [address] Nov, [facility] [place] [facility] [address] [id number] [place] [address] Nov, [facility] [place] [facility] [address] [id number] [place] [address] Nov, [facility] [place] [facility] [address] [id number] [place] [address] Nov, [facility] [place] [facility] [address] [id number] [place] [address] Nov, [facility] [place] [facility] [address] [id number] [place] [address] Nov, [facility] [place] [facility] [address] [id number] [place] [address] Nov, [facility] [place] [facility] [address] [id number] [place] [address] Nov, [facility] [place] [facility] [address] [id number] [place] [address] Nov, [facility] [place] [facility] [address] [id number] [place] [address] Nov, [facility] [place] [facility] [address] [id number] [place] [address] Nov, [facility] [place] [facility] [address] [id number] [place] [address] October, [facility] [place] [facility] [address] [id number] [place] [address] October, [facility] [place] [facility] [address] [id number] [place] [address] October, [facility] [place] [facility] [address] [id number] [place] [address] October, [facility] [place] [facility] [address] [id number] [place] [address] Sep, [facility] [place] [facility] [address] [id number] [place] [address] Sep, [facility] [place] [facility] [address] [id number] [place] [address] Sep, [facility] [place] [facility] [address] [id number] [place] [address] Sep, [facility] [place] [facility] [address] [id number] [place] [address] Sep, [facility] [place] [facility] [address] [id number] [place] [address] Sep, [facility] [place] [facility] [address] [id number] [place] [address] Sep, [facility] [place] [facility] [address] [id number] [place] [address] Sep, [facility] [place] [facility] [address] [id number] [place] [address] Sep, [facility] [place] [facility] [address] [id number] [place] [address] Aug, [facility] [place] [facility] [address] [id number] [place] [address] Aug, [facility] [place] [facility] [address] [id number] [place] [address] 20 Aug, 2013 [facility] [address] [id number] [place] [address] Aug, [facility] [place] [facility] [address] [id number] [place] [address] 07 Aug, 2013 [facility] [address] [id number] [place] [address] Aug, [facility] [place] [facility] [address] [id number] [place] [address] Aug, [facility] [address] [id number] [place] [address] Aug, [facility] [address] [id number] [place] [address] Jul, [facility] [place] [facility] [address] [id number] [place] [address] Jul, [facility] [address] [id number] [place] [address] 44[address] Jun, [facility] [place] [facility] [address] [id number] [place] [address] Jun, [facility] [address] [id number] [place] [address] Jun, [facility] [place] [facility] [address] [id number] [place] [address] Jun, [facility] [place] [facility] [address] [id number] [place] [address] Jun, [facility] [place] [facility] [address] [id number] [place] [address] 94[address] Jun, [facility] [place] [facility] [address] [id number] [place] [address] Jun, [facility] [place] [facility] [address] [id number] [place] [address]- 100[address] Jun, [facility] [address] [id number] [place] [address] 15 Jun, 2013 [facility] [place] [facility] [address] [id number] [place] [address] 69[address] Jun, [facility] [place] [facility] [address] [id number] [place] [address] 30[address] Jun, [facility] [place] [facility] [address] [id number] [place] [address]- 67[address] Jun, [facility] [place] [facility] [address] [id number] [place] [address] May, [facility] [place] [facility] [address] [id number] [place] [address]- [address] May, [facility] [place] [facility] [address] [id number] [place] [address]- 4049 May, [facility] [place] [facility] [address] [id number] [place] [address]- 84[address] May, [facility] [place] [facility] [address] [id number] [place] [address] 23[address] May, [facility] [place] [facility] [address] [id number] [place] [address]- 9772 May, [facility] [place] [facility] [address] [id number] [place] [address]- 2005 26 May, 2013 [facility] [place] [facility] [address] [id number] [place] [address]- 8626 23 May, 2013 [facility] [place] [facility] [address] [id number] [place] [address] 23 May, 2013 [facility] [place] [facility] [address] [id number] [place] [address]- 9097 16 May, 2013 [facility] [place] [facility] [address] [id number] [place] [address] 284[address] 16 May, 2013 [facility] [place] [facility] [address] [id number] [place] [address]- 6[address] May, [facility] [address] [id number] [place] [address] 9798 May, [facility] [place] [facility] [address] [id number] [place] [address]- 275[address] Apr, [facility] [place] [facility] [address] [id number] [place] [address] Apr, [facility] [place] [facility] [address] [id number] [place] [address] 0643 Mar, [facility] [place] [facility] [address] [id number] [place] [address]- 2518 Mar, [facility] [place] [facility] [address] [id number] [place] [address] 8[address] Feb, [facility] [place] [facility] [address] [id number] [place] [address]- 9183 Feb, [facility] [place] [facility] [address] [id number] [place] [address]- 3[address] Feb, [facility] [place] [facility] [address] [id number] [place] [address]- 1215 Feb, [facility] [place] [facility] [address] [id number] [place] [address] 5[address] Jan, [facility] [place] [facility] [address] [id number] [place] [address]- 6[address] Jan, [facility] [place] [facility] [address] [id number] [place] [address]- 9610 Jan, [facility] [place] [facility] [address] [id number] [place] [address]- 6655 Jan, [facility] [place] [facility] [address] [id number] [place] [address]- 1335 Jan, [facility] [place] [facility] [address] [id number] [place] [address]- [address] Jan, [facility] [place] [facility] [address] [id number] [place] [address] 1999 Dec, [facility] [place] [facility] [address] [id number] [place] [address]- 38[address] Dec, [facility] [place] [facility] [address] [id number] [place] [address]- 67[address] Dec, [facility] [place] [facility] [address] [id number] [place] [address]- 5065 Dec, [facility] [place] [facility] [address] [id number] [place] [address]- 6568 Nov, [facility] [place] [facility] [address] [id number] [place] [address] 4256 October, [facility] [place] [facility] [address] [id number] [place] [address] 8474 October, [facility] [address] [id number] [place] [address]- 7745 October, [facility] [address] [id number] [place] [address]- 6393 Sep, [facility] [place] [facility] [address] [id number] [place] [address]- 9254 Sep, [facility] [place] [facility] [address] [id number] [place] [address]- 0346 Jun, [facility] [place] [facility] [address] [id number] [place] [address] 7710 Jun, [facility] [place] [facility] [address] [id number] [place] [address]- 1512 Jun, [facility] [place] [facility] [address] [id number] [place] [address]- 2676 Apr, [facility] [place] [facility] [address] [id number] [place] [address]- 6006 Apr, [facility] [place] [facility] [address] [id number] [place] [address]- 6104 Apr, [facility] [place] [facility] [address] [id number] [place] [address] 9057 Apr, [facility] [place] [facility] [address] [id number] [place] [address] Mar, [facility] [place] [facility] [address] [facility] [id number] [place] [address] 2546 Mar, [facility] [place] [facility] [address] [id number] [place] [address]- 6842 Mar, [facility] [place] [facility] [address] [id number] [place] [address]- 4455 Mar, [facility] [place] [facility] [address] [id number] [place] [address]- 7559 Feb, [facility] [place] [facility] [address] [id number] [place] [address]- 4268 Feb, [facility] [place] [facility] [address] [id number] [place] [address]- 9768 Feb, [facility] [place] [facility] [address] [id number] [place] [address]- 2208 Jan, [facility] [place] [facility] [address] [facility] [id number] [place] [address]- 2571 Jan, [facility] [place] [facility] [address] [id number] [address] 14[address] Jan, [facility] [place] [facility] [address] [id number] [place] [address] 2546 Jan, [facility] [place] [facility] [address] [id number] [place] [address]- 2549 Dec, [facility] [place] [facility] [address] [facility] [id number] [place] [address]- 5406 Dec, [facility] [place] [facility] [address] [facility] [id number] [place] [address] 2546 Nov, [facility] [place] [facility] [address] [id number] [place] [address]- 6448 Nov, [facility] [address] [id number] [place] [address] October, [facility] [place] [facility] [address] [id number] [place] [address]- 9106 October, [facility] [address] [id number] [place] [address]- 2316 October, [facility] [place] [facility] [address] [id number] [place] [address]- 8258 Sep, [facility] [address] [id number] [place] [address]- 0275 Sep, [facility] [place] [facility] [address] [id number] [place] [address]- 6771 Sep, [facility] [address] [id number] [place] [address]- 7250 Aug, [facility] [address] [id number] [place] [address]- 6983 Aug, [facility] [place] [facility] [address] [id number] [place] [address]- 5515 Aug, [facility] [place] [facility] [address] [facility] [id number] [place] [address]- 2230 15 Aug, 2011 [facility] [place] [facility] [address] [id number] [place] [address]- 0567 Aug, [facility] [place] [facility] [address] [id number] [place] [address]- 2979 23 Jul, 2011 [facility] [place] [facility] [address] [id number] [place] [address]- 1649 16 Jul, 2011 [facility] [place] [facility] [address] [id number] [place] [address]- 8536 13 Jul, 2011 [facility] [place] [facility] [address] [facility] [id number] [place] [address]- 1854 Jul, [facility] [place] [facility] [address] [id number] [place] [address]- 4137 Jul, [facility] [place] [facility] [address] [id number] [place] [address]- 2186 Jul, [facility] [place] [facility] [address] [id number] [place] [address]- 6425 Jul, [facility] [place] [facility] [address] [id number] [place] [address]- 1184 Jul, [facility] [place] [facility] [address] [id number] [place] [address] Jun, [facility] [place] [facility] [address] [id number] [place] [address]- 6179 Jun, [facility] [place] [facility] [address] [id number] [place] [address]- 2948 May, [facility] [place] [facility] [address] [id number] [place] [address]- 5804 May, [facility] [place] [facility] [address] [id number] [place] [address]- 1706 May, [facility] [place] [facility] [address] [facility] [id number] [place] [address]- 5202 May, [facility] [place] [facility] [address] [id number] [place] [address]- 9077 Apr, [facility] [place] [facility] [address] [id number] [place] [address]- 6720 Apr, [facility] [place] [facility] [address] [id number] [place] [address]- 7281 Apr, [facility] [place] [facility] [address] [id number] [place] [address]- 2966 Mar, [facility] [place] [facility] [address] [id number] [place] [address]- 4351 Mar, [facility] [place] [facility] [address] [id number] [place] [address]- 3846 18 Mar, 2011 [facility] [address] [id number] [place] [address]- 5326 2011 [facility] [place] [facility] [address] [id number] [place] [address] 2546 Dec, [facility] [address] [id number] [place] [address] 2546 October, [facility] [place] [facility] [address] [id number] [place] [address] 2546 28 May, 2010 [facility] [address] [id number] [place] [address]- 0486 13 May, 2010 [facility] [place] [facility] [address] [id number] [place] [address]- 8066 13 May, 2010 [facility] [address] [id number] [place] [address]- 3619 06 May, 2010 [facility] [address] [id number] [place] [address]- 1987 26 Mar, 2010 [facility] [place] [facility] [address] [id number] [place] [address]- 7122 25 Mar, 2010 [facility] [address] [facility] [id number] [place] [address] 2544 31 May, 2009 [facility] [place] [facility] [address] [id number] [place] [address] 2546 30 May, 2009 [facility] [place] [facility] [address] [id number] [place] [address] 2546 08 May, 2009 [facility] [place] [facility] [address] [id number] [place] [address] 2546 May, [facility] [place] [facility] [address] [id number] [place] [address] 2546 Apr, [facility] [place] [facility] [address] [id number] [place] [address] 2542 Apr, [facility] [address] [facility] [id number] [place] [address] October, IMMUNIZATIONS No Known Immunizations SOCIAL HISTORY Never Assessed REASON FOR VISIT adebayol f/uPatel Stewart RN PLAN OF CARE Activity Details Follow Up 3 Months Reason: VITAL SIGNS Height 64 in 2017-02-02 Blood pressure systolic 132 mmHg 2017-02-02 Blood pressure diastolic 82 mmHg 2017-02-02 MEDICATIONS Medication Instructions Dosage Frequency Start Date End Date Duration Status Ventolin HFA 108 (90 Base) MCG/ACT Inhalation every 4 hrs 2 puffs as needed 4h Dec, 90 days Active Oxygen ... 2L with nasal cannula Active Gabapentin 300 MG Orally Once a day 1 capsule 24h 90 days Active Toviaz 4 MG Orally Once a day 1 tablet 24h Active Montelukast Sodium 10 MG Orally Once a day 1 tablet in the evening 24h 90 days Active Ibuprofen 200 MG Orally every 6 hrs 1 - 4 tablets as needed for pain 6h Jul, 30 days Active Albuterol Sulfate (2.5 MG/3ML) 0.083% Inhalation every 6 hrs 3 ml as needed 6h Apr, Active Simvastatin 40 MG Orally Once a day 1 tablet in the evening 24h Active Cyclobenzaprine HCl 10 MG TAKE ONE TABLET BY MOUTH TWICE DAILY 30 Active Ropinirole HCl 0.5 MG TAKE ONE TABLET BY MOUTH ONCE DAILY AT BEDTIME. 30 Active Estradiol 0.5 MG Orally Once a day 1 tablet 24h 90 days Active Drawtex 4"X4" - Externally every 3 days Completely cover wound with pad Jul, 30 days Active Hydrochlorothiazide 50 MG Orally Once a day 1 tablet 24h Active Ranitidine HCl 150 MG 1 Tablet by Oral route 2 times per day 30 Active Nitrofurantoin Monohyd Macro 100 MG Orally every 12 hrs 1 capsule with food 12h Active Symbicort 160-4.5 MCG/ACT Inhalation Twice a day 2 puffs 12h 90 days Active Budesonide 0.25 mg/2 mL inhale 2 milliliters (0.25 mg) by nebulization route 2 times per day Mar, Active Nebulizer - as directed for use with inhaled medications Mar, lifetime Active Toprol XL 25 MG Orally Once a day at bedtime 1 tablet 30 Active RESULTS No Results PROCEDURES Procedure Date Ordered Result Body Site DEBRIDE NAIL, 6 OR MORE Feb 02, 2017 [facility] VISIT ESTABLISHED PATIENT Feb 02, 2017 INSTRUCTIONS MEDICATIONS ADMINISTERED No Known Medications [...]
--- OUTSIDE RECORDS SUMMARY | 2018-03-17 11:24 | XMS REPORT ---
Author Author MICAELA IVAN Organization [facility] [place] Address [address] [place] [address] Care Team Providers Care Career Resource Specialist Name Role Phone IVAN HINOJOSA Unavailable PROBLEMS Type Condition ICD9-CM Code RVX03-GQ Code Onset Dates Condition Status SNOMED Code Problem Upper respiratory tract infection, unspecified type J06.9 Active 95107899 Problem Other chronic pain G89.29 Active 84841392 Problem Mild persistent asthma without complication J45.30 Active 668539454 Problem Major depressive disorder, recurrent episode, moderate F33.1 Active 064502619 Problem 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 Active 51010319 Problem On home oxygen therapy Z99.81 Active 831999848874 Problem Mild chronic obstructive pulmonary disease J44.9 Active 248584132 Problem Neuropathy G62.9 Active 225751398 Problem Essential hypertension I10 Active 09789035 Problem History of illicit drug use Z87.898 Active 412747139 Problem MRSA (methicillin resistant staph aureus) culture positive Z22.322 Active 959903213 Problem Snoring R06.83 Active 67551682 Problem Agoraphobia F40.00 Active 30330962 Problem Panic disorder without agoraphobia F41.0 Active 78748642 Problem Impaired circulation I99.9 Active 52888784 Problem Fatigue R53.83 Active 29855132 Problem Dysthymic disorder F34.1 Active 57105713 Problem Varicose veins of both lower extremities I83.93 Active 52058923 ALLERGIES No Information ENCOUNTERS Encounter Location Date Diagnosis [facility] [place] [address] [facility] [id number], [place] [address] Nov, [facility] [place] [address] [facility] [id number], [place] [address] Sep, [facility] [place] [address] [facility] [id number], [place] [address] Sep, Dysthymic disorder F34.1 ; Tobacco abuse Z72.0 ; Pain in right knee M25.561 ; Pain in left knee M25.562 ; Other chronic pain G89.29 and BMI 40.0-44.9, adult Z68.41 [place] [address] [address] [place] [id number] [place] [address] 98471- 3917 Aug, Major depressive disorder, recurrent episode, moderate F33.1 and 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 [place] [address] [address] 14 Aug, 2017 Dysthymic disorder F34.1 ; Non-pressure chronic ulcer of left thigh, unspecified ulcer stage L97.129 ; Tobacco abuse Z72.0 ; Mild chronic obstructive pulmonary disease J44.9 and Forgetfulness R68.[address] [address]- [address] Aug, Onychomycosis B35.1 ; Fissure in skin of foot R23.4 and Foot callus L84 [facility] [place] [address] [address] Jul, Right medial knee pain M25.561 ; Upper respiratory tract infection, unspecified type J06.9 and BMI 40.0-44.9, adult Z68.41 [facility] [place] [id number] [place] [address]2825 -[address]295 08 Jul, 2017 Nausea and vomiting, intractability of vomiting not specified, unspecified vomiting type R11.2 ; Left ear pain H92.02 and Gastric pain R10.9 [place] [address] [place] [id number] [place] [address] 74307- 7253 Apr, Encounter for immunization Z23 [place] [address] [address]- [address] Apr, Onychomycosis B35.1 ; Xerosis of skin L85.3 ; Neuropathy G62.9 and 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 [facility] [place] [address], [place] [address] Jan, Onychomycosis B35.1 and Neuropathy G62.9 [facility] [place] [address], [place] [address] Dec, [facility] [place] [address] [place] [id number] [place] [address] 31975- 9961 Dec, [facility] [place] [address] [place] [id number] [place] [address] 24259- 6757 Nov, [facility] [place] [id number] [place] [address], [place] [address] 49[address] Aug, [facility] [place] [address] [place] [id number] [place] [address] 81377- 3146 Aug, [facility] [place] [id number] [place] [address] 34211- 4577 Jul, [facility] [place] [address], [place] [address] 8586 Jul, [facility] [place] [id number] [place] [address] 17017- 7258 Jul, Decubitus ulcer of left thigh, stage 2 L89.892 [facility] [place] [address], [place] [address] Jul, Decubitus ulcer of left thigh, stage 2 L89.892 [facility] [place] [address], [place] [address] 7539 Jul, [facility] [place] [address], [place] [address] 6735 Jul, Decubitus ulcer of left thigh, stage 2 L89.892 [facility] [place] [address], [place] [address]- 4826 Jul, [facility] [place] [address] [place] [address] 46548- 5913 Jul, Cellulitis of other specified site L03.818 ; Illicit drug use F19.90 and Decubitus ulcer of left thigh, stage 2 L89.892 [facility] [place] [id number] [place] [address] 00539- 4148 08 Jul, 2016 [facility] [place] [address] [place] [id number] [place] [address] 68909- 8286 Jul, Cellulitis of right breast N61.0 [facility] [place] [address] [place] [id number] [place] [address] 75678- 8895 Jun, [facility] [place] [address] [place] [id number] [place] [address] 89184- 1076 Jun, [facility] [place] [address] [place] [id number] [place] [address] 53565- 2806 Jun, Wheezing R06.2 and Arthralgia, unspecified joint M25.50 [facility] [place] [address] [place] [id number] [place] [address] 89555- 1922 May, [facility] [place] [address] [place] [id number] [place] [address] 36552- 7421 May, [facility] [place] [address] [place] [id number] [place] [address] 76665- 6817 May, [place] [address] [place] [id number] [place] [address] 18129- 8635 May, Shortness of breath R06.02 [facility] [place] [address] [place] [id number] [place] [address] 48497- 5502 May, Onychomycosis B35.1 and Fissure in skin of foot R23.4 [facility] [place] [address] [place] [id number] [place] [address] 56418- 4524 Apr, [facility] [id number] [place] [address] 27667 -0853 Apr, Dizziness R42 [facility] [place] [address], [place] [address]- 9808 14 Apr, 2016 Shortness of breath R06.02 ; Essential hypertension I10 ; Dizziness R42 and On home oxygen therapy Z99.81 [facility] [place] [address], [place] [address]- 2245 10 Apr, 2016 [facility] [place] [address] [place] [id number] [place] [address] 70469- 8194 08 Apr, 2016 [facility] [place] [address] [place] [id number] [place] [address] 05960- 3674 Apr, [facility] [place] [address] [place] [id number] [place] [address] 84458- 8763 Apr, [facility] [place] [address] [place] [id number] [place] [address] 56381- 0089 Apr, [facility] [place] [address] [place] [id number] [place] [address] 30666- 7500 Apr, [facility] [place] [address] [place] [id number] [place] [address] 22810- 9234 Apr, [facility] [place] [address] [place] [id number] [place] [address] 31800- 8935 Mar, Mild chronic obstructive pulmonary disease J44.9 [facility] [place] [address], [place] [address]- 1103 Mar, [facility] [place] [address] [place] [id number] [place] [address] 66045- 4541 Mar, Epigastric pain R10.13 ; Low back pain M54.5 ; Other chronic pain G89.29 and Breast cancer screening Z12.39 [facility] [place] [address] [place] [id number] [place] [address] 62350- 1707 Mar, [facility] [place] [address], [place] [address]- 0509 Mar, [facility] [place] [address] [place] [id number] [place] [address] 58460- 2970 Feb, [facility] [place] [address], [place] [address]- 7383 Feb, [facility] [place] [address] [place] [id number] [place] [address] 67476- 8568 Feb, Fissure in skin of foot R23.4 and Onychomycosis B35.1 [facility] [place] [id number] [place] [address] 68014- 6571 Jan, Agoraphobia F40.00 [facility] [place] [id number] [place] [address] 68506- 4798 Dec, Agoraphobia F40.00 [place] [id number] [place] [address] 08126- 2063 Dec, Mild persistent asthma without complication J45.30 ; Dysthymic disorder F34.1 and Upper respiratory tract infection, unspecified type J06.9 [place] [id number] [place] [address] 40957- 3004 Nov, Agoraphobia F40.00 [place] [address] [place] [id number] [place] [address] 66152- 5326 October, Agoraphobia F40.00 [place] [id number] [place] [address] 71340- 9171 Sep, Panic disorder without agoraphobia F41.0 ; Agoraphobia F40.00 and Dysthymic disorder F34.1 [facility] [place] [address], [place] [address]- 4770 Sep, Panic attacks F41.0 [facility] [place] [address] [place] [id number] [place] [address] 39218- 0391 Sep, [facility] [place] [id number] [place] [address] 31534- 9540 Sep, Panic disorder without agoraphobia F41.0 ; Varicose veins of both lower extremities I83.93 and Fatigue R53.83 [place] [address], [place] [address]- 4065 14 Sep, 2015 Fatigue R53.83 [place] [address] [place] [id number] [place] [address] 47456- 0878 05 Sep, 2015 [place] [address], [place] [address]- 3956 Aug, [place] [address] [place] [id number] [place] [address] 38724- 1463 Aug, [place] [address] [place] [id number] [place] [address] 99729- 0403 Aug, 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 [place] [address] [place] [id number] [place] [address] 48913- 5006 Aug, Panic disorder without agoraphobia F41.0 ; Agoraphobia F40.00 and Dysthymic disorder F34.1 [place] [address], [place] [address]- 8317 Aug, Shortness of breath R06.02 ; Panic attacks F41.0 ; COPD ( chronic obstructive pulmonary disease) J44.9 ; Tobacco abuse Z72.0 ; Family history of diabetes mellitus Z83.3 and Weight gain R63.5 [place] [address], [place] [address]- 9412 Aug, [place] [address], [place] [address]- 2594 Jul, [place] [address], [place] [address]- 2699 Jun, Onychomycosis B35.1 ; Neuropathy G62.9 and Impaired circulation I99.9 [place] [address], [place] [address]- 8665 09 Mar, 2015 Fissure in skin of foot R23.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 [facility] [place] [address], [place] [address]- 5503 18 Feb, 2015 Family history of coronary arteriosclerosis V17.3 [facility] [place] [address] [place] [id number] [place] [address] 32803- 8325 15 Feb, 2015 Allergic rhinitis due to pollen 477.0 ; Unspecified breast screening V76.10 ; Anxiety 300.00 and Family history of coronary arteriosclerosis V17.3 [facility] [place] [address] [place] [id number] [place] [address] 36113- 9041 Jan, [facility] [place] [address] [place] [id number] [place] [address] 06083- 1749 Dec, [facility] [place] [address] [place] [id number] [place] [address] 99472- 2885 Dec, Onychomycosis 110.1 and Skin fissures 709.8 [facility] [place] [address] [place] [id number] [place] [address] 25984- 1373 Sep, [facility] [place] [address] [place] [id number] [place] [address] 84728- 7017 Sep, [facility] [place] [address] [place] [id number] [place] [address] 85129- 3465 Aug, [facility] [place] [address], [place] [address]- 6283 Aug, [facility] [place] [address] [place] [id number] [place] [address] 22229- 6558 Jul, [facility] [place] [address], [place] [address]- 3691 Jul, [facility] [place] [address] [place] [id number] [place] [address] 54391- 9489 Jun, [facility] [place] [address] [place] [id number] [address]- 5378 Jun, [facility] [place] [address] [place] [id number] [place] [address]- 6949 Jun, [facility] [place] [facility] [address] [id number] [place] [address]- 0804 Jun, [facility] [place] [facility] [address] [id number] [place] [address]- 0735 Jun, [facility] [place] [facility] [address] [id number] [place] [address]- 4865 May, [facility] [place] [facility] [address] [id number] [place] [address]- 4923 May, [facility] [place] [facility] [address] [id number] [place] [address]- 4566 May, [facility] [place] [facility] [address] [id number] [place] [address]- 7119 May, [facility] [place] [facility] [address] [id number] [place] [address]- 5831 May, [facility] [place] [facility] [address] [id number] [place] [address]- 0187 May, [facility] [place] [facility] [address] [id number] [place] [address]- 6909 May, [facility] [place] [facility] [address] [id number] [place] [address]- 7407 May, [facility] [place] [facility] [address] [id number] [place] [address]- 3570 Apr, [facility] [place] [facility] [address] [id number] [place] [address]- 8077 Apr, [facility] [place] [facility] [address] [id number] [place] [address]- 3486 Apr, [facility] [place] [facility] [address] [id number] [place] [address]- 6631 Apr, [facility] [place] [facility] [address] [id number] [place] [address]- 2332 Apr, [facility] [place] [facility] [address] [id number] [place] [address]- 1437 Apr, [facility] [place] [facility] [address] [id number] [place] [address]- 2683 Apr, [facility] [place] [facility] [address] [id number] [place] [address]- 3288 Apr, [facility] [place] [facility] [address] [id number] [place] [address]- 0885 Apr, [facility] [place] [facility] [address] [id number] [place] [address]- 6615 Apr, [facility] [place] [facility] [address] [id number] [place] [address]- 7381 Mar, [facility] [place] [facility] [address] [id number] [place] [address]- 6212 Mar, [facility] [place] [facility] [address] [id number] [place] [address]- 5670 Mar, [facility] [place] [facility] [address] [id number] [place] [address]- 4047 Mar, [facility] [place] [facility] [address] [id number] [place] [address]- 2066 Mar, [facility] [place] [facility] [address] [id number] [place] [address]- 8462 Mar, [facility] [place] [facility] [address] [id number] [place] [address]- 8283 Mar, [facility] [place] [facility] [address] [id number] [place] [address]- 3697 Mar, [facility] [place] [facility] [address] [id number] [place] [address]- 0805 Mar, [facility] [place] [facility] [address] [id number] [place] [address]- 2276 Mar, [facility] [place] [facility] [address] [id number] [place] [address]- 9888 Mar, [facility] [place] [facility] [address] [id number] [place] [address]- 5595 Mar, [facility] [place] [facility] [address] [id number] [place] [address]- 9006 Mar, [facility] [place] [facility] [address] [id number] [place] [address]- 0666 Mar, [facility] [place] [facility] [address] [id number] [place] [address]- 4923 Mar, [facility] [place] [facility] [address] [id number] [place] [address]- 0461 Mar, [facility] [place] [facility] [address] [id number] [place] [address]- 4674 20 Mar, 2014 [facility] [place] [facility] [address] [id number] [place] [address]- 6241 16 Mar, 2014 [facility] [place] [facility] [address] [id number] [place] [address]- 8968 16 Mar, 2014 [facility] [place] [facility] [address] [id number] [place] [address]- 1716 15 Mar, 2014 [facility] [place] [facility] [address] [id number] [place] [address]- 8717 14 Mar, 2014 [facility] [place] [facility] [address] [id number], [place] [address]- 8964 14 Mar, 2014 [facility] [place] [facility] [address] [id number], [place] [address]- 9723 14 Mar, 2014 [facility] [place] [facility] [address] [id number] [place] [address]- 8633 14 Mar, 2014 [facility] [place] [facility] [address] [id number], [place] [address]- 0247 09 Mar, 2014 [facility] [place] [facility] [address] [id number] [place] [address]- 3063 09 Mar, 2014 [facility] [place] [facility] [address] [id number] [place] [address]- 9010 Mar, 2013 [facility] [place] [facility] [address] [id number] [place] [address]- 5928 Mar, 2013 [facility] [place] [facility] [address] [id number] [place] [address]- 7058 Feb, 2013 [facility] [place] [facility] [address] [id number] [place] [address]- 8638 30 Feb, 2013 [facility] [place] [facility] [address] [id number] [place] [address]- 9303 30 Feb, 2013 [facility] [place] [facility] [address] [id number] [place] [address]- 9028 30 Feb, 2013 [facility] [place] [facility] [address] [id number] [place] [address]- 9593 Feb, 2013 [facility] [place] [facility] [address] [id number] [place] [address]- 5679 Feb, 2013 [facility] [place] [facility] [address] [id number] [place] [address]- 4854 Feb, 2013 [facility] [place] [facility] [address] [id number] [place] [address]- 7763 Feb, 2013 [facility] [place] [facility] [address] [id number] [place] [address]- 9779 Feb, 2013 [facility] [place] [facility] [address] [id number] [place] [address]- 2543 Feb, 2013 [facility] [place] [facility] [address] [id number] [place] [address]- 2549 Feb, 2013 [facility] [place] [facility] [address] [id number] [place] [address]- 6842 Feb, 2013 [facility] [place] [facility] [address] [id number] [place] [address]- 3513 Jan, [facility] [place] [facility] [address] [id number] [place] [address] Jan, [facility] [place] [facility] [address] [id number] [place] [address] Jan, [facility] [place] [facility] [address] [id number] [place] [address] Jan, [facility] [place] [facility] [address] [id number] [place] [address] Jan, [facility] [place] [facility] [address] [id number] [place] [address] Jan, [facility] [place] [facility] [address] [id number] [place] [address] Jan, [facility] [place] [facility] [address] [id number] [place] [address] Jan, [facility] [place] [facility] [address] [id number] [place] [address] Jan, [facility] [place] [facility] [address] [id number] [place] [address] Jan, [facility] [place] [facility] [address] [id number] [place] [address] Jan, [facility] [place] [facility] [address] [id number] [place] [address] Jan, [facility] [place] [facility] [address] [id number] [place] [address] Jan, [facility] [place] [facility] [address] [id number] [place] [address] Dec, [facility] [place] [facility] [address] [id number] [place] [address] Dec, [facility] [place] [facility] [address] [id number] [place] [address]- 47[address] Dec, [facility] [place] [facility] [address] [id number] [place] [address]- [address] Dec, [facility] [place] [facility] [address] [id number] [place] [address]- [address] Dec, 2013 [facility] [place] [facility] [address] [id number] [place] [address]- [address] Dec, [facility] [place] [facility] [address] [id number] [place] [address]- [address] Dec, [facility] [place] [facility] [address] [id number] [place] [address] Dec, [facility] [place] [facility] [address] [id number] [place] [address]- [address] Dec, [facility] [place] [facility] [address] [id number] [place] [address]- [address] Dec, [facility] [place] [facility] [address] [id number] [place] [address]- [address] Dec, [facility] [place] [facility] [address] [id number] [place] [address]- [address] Dec, [facility] [place] [facility] [address] [id number] [place] [address]- [address]684 Dec, [facility] [place] [facility] [address] [id number] [place] [address]- [address] Dec, [facility] [place] [facility] [address] [id number] [place] [address]- [address] Dec, [facility] [place] [facility] [address] [id number] [place] [address]- [address] Dec, [facility] [place] [facility] [address] [id number] [place] [address]- [address] Dec, [facility] [place] [facility] [address] [id number] [place] [address]- [address] Dec, [facility] [place] [facility] [address] [id number] [place] [address] Nov, [facility] [place] [facility] [address] [id number] [place] [address]- [address] Nov, [facility] [place] [facility] [address] [id number] [place] [address] Nov, [facility] [place] [facility] [address] [id number] [place] [address]- [address] Nov, [facility] [place] [facility] [address] [id number] [place] [address]- [address] Nov, [facility] [place] [facility] [address] [id number] [place] [address] Nov, [facility] [place] [facility] [address] [id number] [place] [address]- [address] Nov, [facility] [place] [facility] [address] [id number] [place] [address]- [address] Nov, [facility] [place] [facility] [address] [id number] [place] [address]- [address] Nov, [facility] [place] [facility] [address] [id number] [place] [place] [address] Nov, [facility] [place] [facility] [address] [id number] [place] [address] 84[address] Nov, [facility] [place] [facility] [address] [id number] [place] [address]- 0[address] Nov, [facility] [place] [facility] [address] [id number] [place] [address]116 Nov, [facility] [place] [facility] [address] [id number] [place] [address]- 5203 Nov, [facility] [place] [facility] [address] [id number] [place] [address]- 9355 Nov, [facility] [place] [facility] [address] [id number] [place] [address]- 9233 Nov, [facility] [place] [facility] [address] [id number] [place] [address]- 3837 Nov, [facility] [place] [facility] [address] [id number] [place] [address]- 7876 Nov, [facility] [place] [facility] [address] [id number] [place] [address]- 2092 Nov, [facility] [place] [facility] [address] [id number] [place] [address]- 9349 Nov, [facility] [place] [facility] [address] [id number] [place] [address]- 1827 October, [facility] [place] [facility] [address] [id number] [place] [address]- 8599 October, [facility] [place] [facility] [address] [id number] [place] [address]- 3504 October, [facility] [place] [facility] [address] [id number] [place] [address]- 9827 October, [facility] [place] [facility] [address] [id number] [place] [address]- 8038 Sep, [facility] [place] [facility] [address] [id number] [place] [address]- 4669 Sep, [facility] [place] [facility] [address] [id number] [place] [address]- 3133 Sep, [facility] [place] [facility] [address] [id number] [place] [address]- 7583 Sep, [facility] [place] [facility] [address] [id number] [place] [address]- 3150 Sep, [facility] [place] [facility] [address] [id number], [place] [address]- [address] Sep, [facility] [place] [facility] [address] [id number] [place] [address]- 2499 Sep, [facility] [place] [facility] [address] [id number] [place] [address]- 8933 Sep, [facility] [place] [facility] [address] [id number] [place] [address]- 5193 Sep, [facility] [place] [facility] [address] [id number] [place] [address]- 2715 27 Aug, 2013 [facility] [place] [facility] [address] [id number] [place] [address]- 5683 Aug, [facility] [place] [facility] [address] [id number] [place] [address]- 6296 Aug, [facility] [place] [facility] [address] [id number] [place] [address]- 9006 Aug, [facility] [place] [facility] [address] [id number] [place] [address]- 3623 Aug, [facility] [place] [facility] [address] [id number] [place] [address]- 0206 Aug, [facility] [place] [facility] [address] [id number] [place] [address]- 5646 Aug, [facility] [place] [facility] [address] [id number] [place] [address]- 0731 Aug, [facility] [place] [facility] [address] [id number] [place] [address]- 5433 Jul, [facility] [place] [facility] [address] [id number] [place] [address]- 4683 Jul, [facility] [place] [facility] [address] [id number] [place] [address]- 0235 Jun, [facility] [place] [facility] [address] [id number] [place] [address]- 3312 Jun, [facility] [place] [facility] [address] [id number] [place] [address]- 2544 Jun, [facility] [place] [facility] [address] [id number] [place] [address]- 3361 Jun, [facility] [place] [facility] [address] [id number] [place] [address]- 3093 Jun, [facility] [place] [facility] [address] [id number] [place] [address]- 3749 Jun, [facility] [place] [facility] [address] [id number] [place] [address]- 5998 Jun, [facility] [place] [facility] [address] [id number] [place] [address]- 6966 Jun, [facility] [place] [facility] [address] [id number] [place] [address]- 2335 Jun, [facility] [place] [facility] [address] [id number] [place] [address]- 1938 Jun, [facility] [address] [id number] [place] [address]- 7120 Jun, [facility] [place] [facility] [address] [id number] [place] [address]- 2348 Jun, [facility] [address] [id number] [place] [address]- 9860 May, [facility] [address] [id number] [place] [address]- 2621 May, [facility] [place] [facility] [address] [id number] [place] [address]- 6575 May, [facility] [place] [facility] [address] [id number] [place] [address]- 5862 May, [facility] [place] [facility] [address] [id number] [place] [address]- 2193 May, [facility] [place] [facility] [address] [id number] [place] [address]- 8592 May, [facility] [place] [facility] [address] [id number] [place] [address]- 9777 May, [facility] [place] [facility] [address] [id number] [place] [address] May, [facility] [place] [facility] [address] [id number] [place] [address]- 8401 May, [facility] [place] [facility] [address] [id number] [place] [address]- 7898 May, [facility] [place] [facility] [address] [id number] [place] [address]- 4013 May, [facility] [place] [facility] [address] [id number] [place] [address]- 7583 May, [facility] [place] [facility] [address] [id number] [place] [address]89 May, [facility] [place] [facility] [address] [id number] [place] [address]- 3781 Apr, [facility] [place] [facility] [address] [id number] [place] [address]- 8560 Apr, [facility] [place] [facility] [address] [id number] [place] [address]- 0399 Mar, [facility] [place] [facility] [address] [id number] [place] [address]- 2774 Mar, [facility] [place] [facility] [address] [id number] [place] [address]- 9815 24 Feb, 2013 [facility] [place] [facility] [address] [id number] [place] [address]- 7101 Feb, [facility] [place] [facility] [address] [id number] [place] [address]- 7000 Feb, [facility] [place] [facility] [address] [id number] [place] [address]- 2457 Feb, [facility] [place] [facility] [address] [id number] [place] [address]- 6090 Jan, [facility] [place] [facility] [address] [id number] [place] [address]- 9528 Jan, [facility] [place] [facility] [address] [id number] [place] [address]36 Jan, [facility] [place] [facility] [address] [id number] [place] [address]- 3533 Jan, [facility] [place] [facility] [address] [id number] [place] [address]- 2546 Jan, [facility] [address] [id number] [place] [address]- 7616 Jan, [facility] [place] [facility] [address] [id number] [place] [address]- 2546 Dec, [facility] [address] [id number] [place] [address]- 5966 Dec, [facility] [address] [id number] [place] [address]- 3942 Dec, [facility] [address] [id number] [place] [address]- 3736 Dec, [facility] [address] [id number] [place] [address]- 4826 Nov, [facility] [address] [id number] [place] [address]- 9016 October, [facility] [address] [id number] [place] [address]- 8271 October, [facility] [address] [id number] [place] [address]- 8246 October, [facility] [address] [id number] [place] [address]- 6280 Sep, [facility] [address] [id number] [place] [address]- 2546 Sep, [facility] [address] [id number] [place] [address]- 0721 Jun, [facility] [place] [facility] [address] [id number] [place] [address]- 2546 Jun, [facility] [place] [facility] [address] [id number] [place] [address]- 2546 Jun, [facility] [place] [facility] [address] [id number] [place] [address]- 7466 Apr, [facility] [place] [facility] [address] [id number] [place] [address]- 6052 Apr, [facility] [place] [facility] [address] [id number] [place] [address]- 8807 Apr, [facility] [place] [facility] [address] [id number] [place] [address]487 Apr, [facility] [place] [facility] [address] [id number] [place] [address]- 7906 Mar, [facility] [place] [facility] [address] [id number] [place] [address]- 2831 Mar, [facility] [place] [facility] [address] [id number] [place] [address]- 8092 Mar, [facility] [place] [facility] [address] [id number] [place] [address]- 8711 Mar, [facility] [place] [facility] [address] [id number] [place] [address]- 3431 Feb, [facility] [place] [facility] [address] [id number] [place] [address]- 9868 Feb, [facility] [place] [facility] [address] [id number] [place] [address]- 4012 Feb, [facility] [place] [facility] [address] [id number] [place] [address]- 8347 Jan, [facility] [place] [facility] [address] [id number] [address]- 9127 Jan, [facility] [place] [facility] [address] [id number] [place] [address]- 0299 Jan, [facility] [place] [facility] [address] [id number] [place] [address]- 4435 Jan, [facility] [place] [facility] [address] [id number] [place] [address]- 9718 Dec, [facility] [place] [facility] [address] [id number] [place] [address]- 9591 Dec, [facility] [address] [id number] [place] [address]- 3295 Nov, [facility] [place] [facility] [address] [id number] [place] [address]- 6588 Nov, [facility] [place] [facility] [address] [id number] [place] [address]- 4481 October, [facility] [place] [facility] [address] [id number] [place] [address]- 0345 October, [facility] [place] [facility] [address] [id number] [place] [address]- 7322 October, [facility] [place] [facility] [address] [id number] [place] [address]- 5737 Sep, [facility] [address] [id number] [place] [address]- 6473 Sep, [facility] [place] [facility] [address] [id number] [place] [address]- 4290 Sep, [facility] [place] [facility] [address] [id number] [place] [address]- 0131 Aug, [facility] [place] [facility] [address] [facility] [id number] [place] [address]- 3512 Aug, [facility] [place] [facility] [address] [id number] [place] [address]- 8001 Aug, [facility] [place] [facility] [address] [id number] [place] [address]- 4265 Aug, [facility] [place] [facility] [address] [id number] [place] [address]- 9315 Aug, [facility] [place] [facility] [address] [id number] [place] [address]- 0913 Jul, [facility] [place] [facility] [address] [id number] [place] [address]- 0210 16 Jul, 2011 [facility] [place] [facility] [address] [id number] [place] [address]- 5999 Jul, [facility] [place] [facility] [address] [id number] [place] [address]- 2466 Jul, [facility] [place] [facility] [address] [id number] [place] [address]- 6946 Jul, [facility] [place] [facility] [address] [id number] [place] [address]- 0808 Jul, [facility] [place] [facility] [address] [id number] [place] [address]- 3650 Jul, [facility] [place] [facility] [address] [id number] [place] [address]- 8700 Jul, [facility] [place] [facility] [address] [id number] [place] [address]- 0722 Jun, [facility] [place] [facility] [address] [id number] [place] [address]- 4761 Jun, [facility] [place] [facility] [address] [id number] [place] [address]- 8326 May, [facility] [place] [facility] [address] [id number] [place] [address]- 5558 May, [facility] [place] [facility] [address] [id number] [place] [address]- 3942 May, [facility] [place] [facility] [address] [id number] [place] [address]- 5315 May, [facility] [place] [facility] [address] [id number] [place] [address]- 0169 Apr, [facility] [place] [facility] [address] [id number] [place] [address]- 0944 Apr, [facility] [place] [facility] [address] [id number] [place] [address]- 0777 Apr, [facility] [place] [facility] [address] [id number] [place] [address]81 18 Mar, 2011 [facility] [place] [facility] [address] [id number] [place] [address]- 2106 18 Mar, 2011 [facility] [place] [facility] [address] [id number] [place] 2366 18 Mar, 2011 [facility] [place] [facility] [address] [id number] [place] [address]- 3456 2011 [facility] [place] [facility] [address] [id number] [place] [address]- 8533 12 Dec, 2010 [facility] [place] [facility] [address] [id number] [place] [address]84 October, [facility] [place] [facility] [address] [id number] [place] [address]- 5700 28 May, 2010 [facility] [place] [facility] [address] [id number] [place] [address]- 9917 13 May, 2010 [facility] [place] [facility] [address] [id number] [place] [address]- 2207 13 May, 2010 [facility] [place] [facility] [address] [id number] [place] [address]- 4881 06 May, 2010 [facility] [place] [facility] [address] [facility] [id number] [place] [address]- 2568 26 Mar, 2010 [facility] [place] [facility] [address] [id number] [place] [address]- 7321 25 Mar, 2010 [facility] [place] [facility] [address] [id number] [place] [address]- 2543 31 May, 2009 [facility] [place] [facility] [address] [id number] [place] [address]- 0567 30 May, 2009 [facility] [place] [facility] [address] [facility] [id number] [place] [address]- 2546 08 May, 2009 [facility] [place] [facility] [address] [facility] [id number] [place] 5643 08 May, 2009 [facility] [place] [facility] [address] [facility] [id number] [place] [address]- 9938 Apr, [facility] [address] [facility] [id number], [place] [address]- 2897 Apr, [facility] [address] [facility] [id number] [place] [address]- 4244 October, IMMUNIZATIONS No Known Immunizations SOCIAL HISTORY Never Assessed REASON FOR VISIT 3 mo f/u. Consult Dr. Hinojosa; Kavon RT(R) PLAN OF CARE Activity Details Follow Up 3 Months Reason: VITAL SIGNS MEDICATIONS Unknown Medications RESULTS No Results PROCEDURES Procedure Date Ordered Result Body Site DEBRIDE NAIL, 6 OR MORE Apr 27, 2017 [facility] VISIT ESTABLISHED PATIENT Apr 27, 2017 INSTRUCTIONS MEDICATIONS ADMINISTERED No Known Medications [...]
--- OUTSIDE RECORDS SUMMARY | 2018-03-17 11:26 | XMS REPORT ---
Author Author MICAELA IVAN Organization 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 Active 04060799 Problem On home oxygen therapy Z99.81 Active 239399207396 Problem Mild chronic obstructive pulmonary disease J44.9 Active 573924854 Problem Neuropathy G62.9 Active 514951161 Problem Essential hypertension I10 Active 09780365 Problem History of illicit drug use Z87.898 Active 858953170 Problem MRSA (methicillin resistant staph aureus) culture positive Z22.322 Active 186079324 Problem Snoring R06.83 Active 77369229 Problem Agoraphobia F40.00 Active 99643015 Problem Panic disorder without agoraphobia F41.0 Active 15619155 Problem Impaired circulation I99.9 Active 40186647 Problem Fatigue R53.83 Active 27446707 Problem Dysthymic disorder F34.1 Active 98966376 Problem Varicose veins of both lower extremities I83.93 Active 31243624 ALLERGIES No Information ENCOUNTERS Encounter Location Date Diagnosis [facility] [address] [facility] [id number], [place] [address] Nov, [facility] [address] [facility] [id number], [place] [address] Sep, 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 [place] [address] [place] [place] [id number] [place] [address] 91281- 5091 14 Aug, 2017 Dysthymic disorder F34.1 ; Non-pressure chronic ulcer of left thigh, unspecified ulcer stage L97.129 ; Tobacco abuse Z72.0 ; Mild chronic obstructive pulmonary disease J44.9 and Forgetfulness R68.89 [place] [id number] [place] [address] 34904- 4346 Aug, Onychomycosis B35.1 ; Fissure in skin of foot R23.4 and Foot callus L84 [facility] [place] [id number] [place] [address] 62600 -1326 Jul, Right medial knee pain M25.561 ; Upper respiratory tract infection, unspecified type J06.9 and BMI 40.0-44.9, adult Z68.41 [facility] [place] [id number] [place] [address] 13854 -1062 08 Jul, 2017 Nausea and vomiting, intractability of vomiting not specified, unspecified vomiting type R11.2 ; Left ear pain H92.02 and Gastric pain R10.9 [place] [id number] [place] [address] 49092- 1801 Apr, Encounter for immunization Z23 [place] [id number] [place] [address] 54564- 5832 Apr, Onychomycosis B35.1 ; Xerosis of skin L85.3 ; Neuropathy G62.9 and 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 [address]65[place] [address] Dec, [facility] [address] [address] Nov, [facility] [address] [address] Aug, [facility] [address], [place] [address] Aug, [facility] [address], [place] [address] Jul, [facility] [address], [place] [address] Jul, [facility] [address], [place] [address] 3834 Jul, Decubitus ulcer of left thigh, stage [address] [facility] [address], [place] [address] 1226 17 Jul, 2016 Decubitus ulcer of left thigh, stage [address] [facility] [address], [place] [address] 17 Jul, 2016 [facility] [address] [place] [id number], [place] [address] 6501 15 Jul, 2016 Decubitus ulcer of left thigh, stage [address] [facility] [address] [place] [id number], [place] [address]40 14 Jul, 2016 [facility] [address], [place] [address] 9837 13 Jul, 2016 Cellulitis of other specified site L03.818 ; Illicit drug use F19.90 and Decubitus ulcer of left thigh, stage [address] [facility] [address] [place] [place] [id number] [place] [address] 66401- 8370 08 Jul, 2016 [place] [address] [address]- 8397 Jul, Cellulitis of right breast N61.0 [place] [address] [place] [id number] [place] [address] 24558- 6602 Jun, [place] [address] 44439- 9079 Jun, [place] [address] [place] [id number] [place] [address] 48608- 5240 Jun, Wheezing R06.2 and Arthralgia, unspecified joint M25.50 [place] [address] [place] [id number] [place] [address] 35194- 6657 May, [place] [address] 39279- 2574 May, [place] [address] [place] [id number] [place] [address] 64679- 8833 May, [place] [address] [place] [id number] [place] [address] 99901- 1040 May, Shortness of breath R06.02 [place] [address] [place] [id number] [place] [address] 37247- 0768 May, Onychomycosis B35.1 and Fissure in skin of foot R23.4 [place] [address] [place] [id number] [place] [address] 04462- 8646 Apr, [facility] [id number] [place] [address] 95280 -3142 18 Apr, 2016 Dizziness R42 [place] [address] [place] [id number] [place] [address] 93855- 2802 14 Apr, 2016 Shortness of breath R06.02 ; Essential hypertension I10 ; Dizziness R42 and On home oxygen therapy Z99.81 [place] [address], [place] [address] Apr, [facility] [address], [place] [address] 0506 Apr, [facility] [address], [place] [address] [address] Apr, [facility] [address], [place] [address] [address] Apr, [facility] [address] [facility] [id number], [place] [address] [address] Apr, [facility] [address] [place] [address] 29652- 3462 Apr, [facility] [address], [place] [address]- 4702 Apr, [facility] [address] [place] [address] 48511- 1431 Mar, Mild chronic obstructive pulmonary disease J44.9 [facility] [address], [place] [address] 6097 Mar, [facility] [address], [place] [address]- 7884 Mar, Epigastric pain R10.13 ; Low back pain M54.5 ; Other chronic pain G89.29 and Breast cancer screening Z12.39 [facility] [address], [place] [address] 8[address] Mar, [facility] [address], [place] [address] Mar, [facility] [address], [place] [address]- [address]6 Feb, [facility] [address], [place] [address]- 6044 Feb, [facility] [address], [place] [address]- 4872 Feb, Fissure in skin of foot R23.4 and Onychomycosis B35.1 [place] [address] [place] [id number] [place] [address] 94891- 4335 Jan, Agoraphobia F40.00 [place] [address] [place] [address] 60266- 6501 Dec, Agoraphobia F40.00 [place] [address] [place] [id number] [place] [address] 95661- 3260 Dec, Mild persistent asthma without complication J45.30 ; Dysthymic disorder F34.1 and Upper respiratory tract infection, unspecified type J06.9 [place] [address] [place] [id number] [place] [address] 25920- 2868 Nov, Agoraphobia F40.00 [place] [address] [place] [id number] [place] [address] 95017- 1510 October, Agoraphobia F40.00 [place] [address] [place] [id number] [place] [address] 24676- 0985 Sep, Panic disorder without agoraphobia F41.0 ; Agoraphobia F40.00 and Dysthymic disorder F34.1 [place] [address] [place] [address] 74310- 3812 Sep, Panic attacks F41.0 [place] [address] [place] [id number] [place] [address] 44082- 7680 Sep, [place] [address] [place] [address] 74128- 2086 Sep, Panic disorder without agoraphobia F41.0 ; Varicose veins of both lower extremities I83.93 and Fatigue R53.83 [place] [address] [place] [address] 05571- 1067 14 Sep, 2015 Fatigue R53.83 [place] [address] [place] [id number] [place] [address] 71558- 8307 05 Sep, 2015 [place] [address] [place] [id number] [place] [address] 64358- 0155 Aug, [place] [address] [place] [id number] [place] [address] 18588- 4118 Aug, [place] [address] [place] [id number] [place] [address] 21775- 5567 Aug, 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 [place] [address] [place] [id number] [place] [address] 10381- 8552 Aug, Panic disorder without agoraphobia F41.0 ; Agoraphobia F40.00 and Dysthymic disorder F34.1 [place] [address] [place] [id number] [place] [address] 15559- 9845 Aug, Shortness of breath R06.02 ; Panic attacks F41.0 ; COPD ( chronic obstructive pulmonary disease) J44.9 ; Tobacco abuse Z72.0 ; Family history of diabetes mellitus Z83.3 and Weight gain R63.5 [place] [address] [place] [id number] [place] [address] 59203- 1473 Aug, [place] [address] [place] [id number] [place] [address] 81640- 4706 Jul, [place] [address] [place] [id number] [place] [address] 14041- 1143 Jun, Onychomycosis B35.1 ; Neuropathy G62.9 and Impaired circulation I99.9 [place] [address] [place] [id number] [place] [address] 61478- 3568 09 Mar, 2015 Fissure in skin of foot R23.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 [address], [place] [address]- 6687 Jan, [facility] [address] [place] [id number] [place] [address] 54453- 9991 Dec, [facility] [address], [place] [address]- 7135 Dec, Onychomycosis 110.1 and Skin fissures 709.8 [facility] [address], [place] [address]- 1458 Sep, [facility] [address] [place] [id number] [place] [address] 38126- 9214 Sep, [facility] [address], [place] [address]- 7554 Aug, [facility] [address], [place] [address]- 6078 Aug, [facility] [address], [place] [address]- 4706 Jul, [facility] [address], [place] [address]- 8387 Jul, [facility] [address], [place] [address]- 5190 Jun, [facility] [address]- 10[address] Jun, [facility] [address], [place] [address]- 8923 Jun, [facility] [address], [place] [address]- 5912 Jun, [facility] [place] [facility] [address] [id number] [place] [address]- 6306 Jun, [facility] [place] [facility] [address] [id number] [place] [address]- 8570 May, [facility] [place] [facility] [address] [id number] [place] [address]- 1522 May, [facility] [place] [facility] [address] [id number] [place] [address]- 4664 May, [facility] [place] [facility] [address] [id number] [place] [address]- 8824 May, [facility] [place] [facility] [address] [id number] [place] [address]- 0658 May, [facility] [place] [facility] [address] [id number] [place] [address]- 9596 May, [facility] [place] [facility] [address] [id number] [place] [address]- 6214 May, [facility] [place] [facility] [address] [id number] [place] [address]- 6290 May, [facility] [place] [facility] [address] [id number] [place] [address]- 1792 Apr, [facility] [place] [facility] [address] [id number] [place] [address]- 7213 Apr, [facility] [place] [facility] [address] [id number] [place] [address]- 8311 Apr, [facility] [place] [facility] [address] [id number] [place] [address]- 7484 Apr, [facility] [place] [facility] [address] [id number] [place] [address]- 4307 Apr, [facility] [place] [facility] [address] [id number] [place] [address]- 8742 Apr, [facility] [place] [facility] [address] [id number] [place] [address]- 3940 Apr, [facility] [place] [facility] [address] [id number] [place] [address]- 6306 Apr, [facility] [place] [facility] [address] [id number] [place] [address]- 7254 Apr, [facility] [place] [facility] [address] [id number] [place] [address]- 0288 Apr, [facility] [place] [facility] [address] [id number] [place] [address]- 9749 Mar, [facility] [place] [facility] [address] [id number] [place] [address]- 7351 Mar, [facility] [place] [facility] [address] [id number] [place] [address]- 0474 Mar, [facility] [place] [facility] [address] [id number] [place] [address]- 9163 Mar, [facility] [place] [facility] [address] [id number], [place] [address]- 3144 Mar, [facility] [place] [facility] [address] [id number] [place] [address]- 1395 Mar, [facility] [place] [facility] [address] [id number], [place] [address]- 9835 Mar, [facility] [place] [facility] [address] [id number], [place] [address]- 0656 Mar, [facility] [place] [facility] [address] [id number], [place] [address]- 8188 Mar, [facility] [place] [facility] [address] [id number] [place] [address]- 2956 Mar, [facility] [place] [facility] [address] [id number], [place] [address]- 5935 Mar, [facility] [place] [facility] [address] [id number], [place] [address]- 1615 Mar, [facility] [place] [facility] [address] [id number] [place] [address]- 7742 22 Mar, 2013 [facility] [place] [facility] [address] [id number] [place] [address]- 9426 22 Mar, 2013 [facility] [place] [facility] [address] [id number] [place] [address]- 9129 22 Mar, 2013 [facility] [place] [facility] [address] [id number] [place] [address]- 6416 20 Mar, 2013 [facility] [place] [facility] [address] [id number] [place] [address]- 5800 20 Mar, 2013 [facility] [place] [facility] [address] [id number] [place] [address]- 7768 16 Mar, 2013 [facility] [place] [facility] [address] [id number] [place] [address]- 7852 16 Mar, 2013 [facility] [place] [facility] [address] [id number] [place] [address]- 9606 15 Mar, 2013 [facility] [place] [facility] [address] [id number] [place] [address]- 1905 14 Mar, 2013 [facility] [place] [facility] [address] [id number] [place] [address]- 2540 14 Mar, 2013 [facility] [place] [facility] [address] [id number] [place] [address]- 2246 14 Mar, 2014 [facility] [place] [facility] [address] [id number] [place] [address]- 0958 14 Mar, 2013 [facility] [place] [facility] [address] [id number], [place] [address]- 5650 09 Mar, 2013 [facility] [place] [facility] [address] [id number] [place] [address]- 2862 09 Mar, 2013 [facility] [place] [facility] [address] [id number] [place] [address]- 3548 09 Mar, 2013 [facility] [place] [facility] [address] [id number], [place] [address]- 4353 09 Mar, 2014 [facility] [place] [facility] [address] [id number] [place] [address]- 2542 30 Feb, 2013 [facility] [place] [facility] [address] [id number] [place] [address] 2543 30 Feb, 2013 [facility] [place] [facility] [address] [id number] [place] [address]- 2095 30 Feb, 2013 [facility] [place] [facility] [address] [id number] [place] [address]- 6771 30 Feb, 2013 [facility] [place] [facility] [address] [id number] [place] [address]- 4725 Feb, 2013 [facility] [place] [facility] [address] [id number] [place] [address]- 8505 Feb, 2013 [facility] [place] [facility] [address] [id number] [place] [address]- 9197 Feb, 2013 [facility] [place] [facility] [address] [id number] [place] [address]- 3335 Feb, 2013 [facility] [place] [facility] [address] [id number] [place] [address]- 5063 Feb, 2013 [facility] [place] [facility] [address] [id number] [place] [address]- 0783 Feb, 2013 [facility] [place] [facility] [address] [id number] [place] [address]- 4632 Feb, 2013 [facility] [place] [facility] [address] [id number] [place] [address]- 2544 Feb, 2013 [facility] [place] [facility] [address] [id number] [place] [address]- 3902 Jan, [facility] [place] [facility] [address] [id number] [place] [address]- 0711 Jan, [facility] [place] [facility] [address] [id number] [place] [address]- 8739 14 Jan, 2014 [facility] [place] [facility] [address] [id number] [place] [address]- 9708 Jan, [facility] [place] [facility] [address] [id number] [place] [address]- 6734 Jan, [facility] [place] [facility] [address] [id number] [place] [address]- 7911 Jan, [facility] [place] [facility] [address] [id number] [place] [address]- 7273 Jan, [facility] [place] [facility] [address] [id number] [place] [address]- 5679 Jan, [facility] [place] [facility] [address] [id number] [place] [address]- 6585 Jan, [facility] [place] [facility] [address] [id number] [place] [address]- 4308 Jan, [facility] [place] [facility] [address] [id number] [place] [address]- 2835 Jan, [facility] [place] [facility] [address] [id number] [place] [address]- 7998 Jan, [facility] [place] [facility] [address] [id number] [place] [address]- 2811 Jan, [facility] [place] [facility] [address] [id number] [place] [address]- 6203 Dec, [facility] [place] [facility] [address] [id number] [place] [address]- 2545 Dec, [facility] [place] [facility] [address] [id number] [place] [address]- 4033 Dec, [facility] [place] [facility] [address] [id number] [place] [address]- 7180 Dec, [facility] [place] [facility] [address] [id number] [place] [address]- 2342 Dec, [facility] [place] [facility] [address] [id number] [place] [address]- 6413 Dec, [facility] [place] [facility] [address] [id number] [place] [address]- 0739 Dec, 2013 [facility] [place] [facility] [address] [id number] [place] [address]- 5993 Dec, 2013 [facility] [place] [facility] [address] [id number] [place] [address]- 4435 Dec, 2013 [facility] [place] [facility] [address] [id number] [place] [address] Dec, 2013 [facility] [place] [facility] [address] [id number] [place] [address] Dec, 2013 [facility] [place] [facility] [address] [id number] [place] [address] Dec, 2013 [facility] [place] [facility] [address] [id number] [place] [address] Dec, [facility] [place] [facility] [address] [id number] [place] [address] Dec, [facility] [place] [facility] [address] [id number] [place] [address] Dec, [facility] [place] [facility] [address] [id number] [place] [address] Dec, [facility] [place] [facility] [address] [id number] [place] [address] Dec, [facility] [place] [facility] [address] [id number] [place] [address] Dec, [facility] [place] [facility] [address] [id number] [place] [address] Nov, [facility] [place] [facility] [address] [id number] [place] [address] Nov, [facility] [place] [facility] [address] [id number] [place] [address] Nov, [facility] [place] [facility] [address] [id number] [place] [address] Nov, [facility] [place] [facility] [address] [id number] [place] [address] Nov, [facility] [place] [facility] [address] [id number] [place] [address] Nov, [facility] [place] [facility] [address] [id number] [place] [address] Nov, [facility] [place] [facility] [address] [id number] [place] [address] Nov, [facility] [place] [facility] [address] [id number] [place] [address] Nov, [facility] [place] [facility] [address] [id number] [place] [address] Nov, [facility] [place] [facility] [address] [id number] [place] [address] Nov, [facility] [place] [facility] [address] [id number] [place] [address] Nov, [facility] [place] [facility] [address] [id number] [place] [address] Nov, [facility] [place] [facility] [address] [id number] [place] [address] Nov, [facility] [place] [facility] [address] [id number] [place] [address] Nov, [facility] [address] [id number], [place] [address] Nov, [facility] [place] [address] [id number] [place] [address] Nov, [facility] [place] [facility] [address] [id number] [place] [address] Nov, [facility] [place] [facility] [address] [id number] [place] [address] Nov, [facility] [address] [id number], [place] [address] Nov, [facility] [address] [id number] [place] [address] October, [facility] [address] [id number] [place] [address] October, [facility] [address] [id number] [place] [address] October, [facility] [place] [facility] [address] [id number] [place] [address] October, [facility] [address] [id number] [place] [address] Sep, [facility] [address] [id number] [place] [address] Sep, [facility] [place] [address] [id number] [place] [address] Sep, [facility] [address] [id number] [place] [address] Sep, [facility] [address] [id number] [place] [address] Sep, [facility] [address] [id number] [place] [address] Sep, [facility] [address] [id number] [place] [address] Sep, [facility] [address] [id number] [place] [address] Sep, [facility] [address] [id number] [place] [address] Sep, [facility] [place] [facility] [address] [id number] [place] [address] Aug, [facility] [place] [facility] [address] [id number] [place] [address] Aug, [facility] [place] [facility] [address] [id number] [place] [address] Aug, [facility] [place] [facility] [address] [id number] [place] [address]77 Aug, [facility] [place] [facility] [address] [id number] [place] [address] Aug, [facility] [place] [facility] [address] [id number] [place] [address] 0[address] Aug, [facility] [place] [facility] [address] [id number] [place] [address]69 Aug, [facility] [place] [facility] [address] [id number] [place] [address] 295[address] Aug, [facility] [place] [facility] [address] [id number] [place] [address] 7527 Jul, [facility] [place] [facility] [address] [id number] [place] [address] 9676 Jul, [facility] [place] [facility] [address] [id number] [place] [address] 1495 Jun, [facility] [place] [facility] [address] [id number] [place] [address]- 7272 Jun, [facility] [place] [facility] [address] [id number] [place] [address]- 1780 Jun, [facility] [place] [facility] [address] [id number] [place] [address] 9258 Jun, [facility] [place] [facility] [address] [id number] [place] [address]- 9126 Jun, [facility] [place] [facility] [address] [id number] [place] [address]- 7712 Jun, [facility] [place] [facility] [address] [id number] [place] [address]- 8259 Jun, [facility] [place] [facility] [address] [id number] [place] [address]- 0[address] 15 Jun, 2013 [facility] [address] [id number] [place] [address]- 6989 15 Jun, 2013 [facility] [place] [facility] [address] [id number] [place] [address]- 7687 14 Jun, 2013 [facility] [place] [facility] [address] [facility] [id number] [place] [address]- 46[address] Jun, [facility] [place] [facility] [address] [id number] [place] [address]- 9466 Jun, [facility] [place] [facility] [address] [id number] [place] [address] May, [facility] [place] [facility] [address] [id number] [place] [address]- 6727 May, [facility] [place] [facility] [address] [id number] [place] [address]- 6740 May, [facility] [place] [facility] [address] [id number] [place] [address]- 0830 31 May, 2013 [facility] [place] [facility] [address] [id number] [place] [address]- 0749 31 May, 2013 [facility] [place] [facility] [address] [id number] [place] [address]- 2723 31 May, 2013 [facility] [place] [facility] [address] [id number], [place] [address] 26 May, 2013 [facility] [place] [facility] [address] [id number], [place] [address]- [address] 23 May, 2013 [facility] [place] [facility] [address] [id number] [place] [address]- 6833 23 May, 2013 [facility] [place] [facility] [address] [id number] [place] [address]- 6408 16 May, 2013 [facility] [place] [facility] [address] [id number] [place] [address]- 9335 16 May, 2013 [facility] [place] [facility] [address] [id number] [place] [address]- 8380 May, [facility] [place] [facility] [address] [id number] [place] [address]- [address] May, [facility] [place] [facility] [address] [id number] [place] [address]- 4354 Apr, [facility] [place] [facility] [address] [id number] [place] [address]- 8318 Apr, [facility] [place] [facility] [address] [id number] [place] [address]- 6979 Mar, [facility] [place] [facility] [address] [id number] [place] [address]- 2474 Mar, [facility] [place] [facility] [address] [id number] [place] [address]- 1514 Feb, [facility] [place] [facility] [address] [id number] [place] [address]- 6824 Feb, [facility] [place] [facility] [address] [id number] [place] [address]- 4015 Feb, [facility] [place] [facility] [address] [id number] [place] [address]- 4982 Feb, [facility] [place] [facility] [address] [id number] [place] [address]- 9504 Jan, [facility] [place] [facility] [address] [id number] [place] [address]- 3334 Jan, [facility] [place] [facility] [address] [id number] [place] [address]- 0056 Jan, [facility] [place] [facility] [address] [id number] [place] [address]- 3551 Jan, [facility] [place] [facility] [address] [id number] [place] [address]- 1148 Jan, [facility] [place] [facility] [address] [id number] [place] [address]- 3828 Jan, [facility] [place] [facility] [address] [id number] [place] [address]- 4753 Dec, [facility] [address] [id number] [place] [address]- 2537 Dec, [facility] [address] [id number] [place] [address]- 4698 Dec, [facility] [address] [id number] [place] [address]- 9328 Dec, [facility] [address] [id number] [place] [address]- 8703 Nov, [facility] [address] [id number] [place] [address]- 6839 October, [facility] [address] [id number] [place] [address]- 9627 October, [facility] [address] [id number] [place] [address]- 8724 October, [facility] [address] [id number] [place] [address]- 6827 Sep, [facility] [address] [id number] [place] [address]- 7110 Sep, [facility] [address] [id number] [place] [address]- 9189 Jun, [facility] [address] [id number] [place] [address]- 2186 Jun, [facility] [place] [facility] [address] [id number] [place] [address]- 2382 Jun, [facility] [place] [facility] [address] [id number] [place] [address]- 5896 Apr, [facility] [address] [id number] [place] [address]- 1240 Apr, [facility] [address] [id number] [place] [address]- 4843 Apr, [facility] [place] [facility] [address] [id number] [place] [address]- 6762 Apr, [facility] [place] [facility] [address] [id number] [place] [address]- 9029 Mar, [facility] [place] [facility] [address] [id number] [place] [address]- 7776 Mar, [facility] [place] [facility] [address] [id number] [place] [address]- 4187 Mar, [facility] [place] [facility] [address] [id number] [place] [address]- 6783 Mar, [facility] [place] [facility] [address] [id number] [place] [address]- 3099 Feb, [facility] [place] [facility] [address] [id number] [place] [address]- 6030 Feb, [facility] [place] [facility] [address] [id number] [place] [address]- 1812 Feb, [facility] [place] [facility] [address] [id number] [place] [address]- 5832 Jan, [facility] [place] [facility] [address] [id number] [place] [address]- 6643 Jan, [facility] [place] [facility] [address] [id number] [place] [address]- 8409 Jan, [facility] [place] [facility] [address] [id number] [place] [address]- 1033 Jan, [facility] [place] [facility] [address] [id number] [place] [address]- 8252 Dec, [facility] [place] [facility] [address] [id number] [place] [address]- 3274 Dec, [facility] [place] [facility] [address] [id number] [place] [address]- 8066 Nov, [facility] [place] [facility] [address] [id number] [place] [address]- 3673 Nov, [facility] [address] [id number] [place] [address]- 3629 October, [facility] [place] [facility] [address] [id number] [place] [address]- 4666 October, [facility] [address] [id number] [place] [address]- 7516 October, [facility] [address] [id number] [place] [address]- 2608 Sep, [facility] [address] [id number] [place] [address]- 1483 Sep, [facility] [address] [id number] [place] [address]- 8851 Sep, [facility] [address] [id number] [place] [address]- 5002 Aug, [facility] [address] [id number] [place] [address]- 4139 Aug, [facility] [address] [id number] [place] [address]- 2391 Aug, [facility] [address] [id number] [place] [address]- 1761 Aug, [facility] [place] [facility] [address] [id number] [place] [address]- 4778 Aug, [facility] [address] [id number] [place] [address]- 8918 23 Jul, 2011 [facility] [place] [facility] [address] [id number] [place] [address]- 0006 16 Jul, 2011 [facility] [place] [facility] [address] [id number] [place] [address]- 0146 13 Jul, 2011 [facility] [place] [facility] [address] [id number] [place] [address]- 5925 Jul, [facility] [place] [facility] [address] [id number] [place] [address]- 6165 Jul, [facility] [place] [facility] [address] [id number] [place] [address]- 8936 Jul, [facility] [place] [facility] [address] [facility] [id number] [place] [address]- 7326 Jul, [facility] [place] [facility] [address] [id number] [place] [address]- 1234 Jul, [facility] [place] [facility] [address] [id number] [place] [address]- 8278 Jun, [facility] [place] [facility] [address] [id number] [place] [address]- 7380 Jun, [facility] [place] [facility] [address] [id number] [place] [address]- 9296 May, [facility] [place] [facility] [address] [id number] [place] [address]- 8210 May, [facility] [place] [facility] [address] [facility] [id number] [place] [address]- 2692 May, [facility] [place] [facility] [address] [facility] [id number] [place] [address]- 2434 May, [facility] [place] [facility] [address] [id number], [place] [address]- 4484 Apr, [facility] [place] [facility] [address] [id number], [place] [address]- 4124 Apr, [facility] [place] [facility] [address] [id number], [place] [address]- 3107 Apr, [facility] [place] [facility] [address] [facility] [id number], [place] [address]- 6787 Mar, [facility] [place] [facility] [address] [facility] [id number] [place] [address]- 0859 Mar, [facility] [place] [facility] [address] [id number] [place] [address]- 0134 18 Mar, 2011 [facility] [address] [id number] [place] [address]- 1236 2011 [facility] [place] [facility] [address] [id number] [place] [address]- 9476 Dec, [facility] [address] [id number] [place] [address]- 7206 October, [facility] [address] [id number] [place] [address]- 5157 28 May, 2010 [facility] [address] [id number] [place] [address]- 1306 May, [facility] [address] [id number] [place] [address]- 8875 13 May, 2010 [facility] [address] [id number] [place] [address]- 2542 06 May, 2010 [facility] [address] [id number] [place] [address]- 4776 26 Mar, 2010 [facility] [address] [id number] [place] [address]- 0488 25 Mar, 2010 [facility] [address] [id number] [place] [address]- 8116 31 May, 2009 [facility] [address] [id number] [place] [address] 2543 30 May, 2009 [facility] [address] [id number] [place] [address] 2546 08 May, 2009 [facility] [place] [facility] [address] [id number] [place] [address] 2546 May, [facility] [address] [id number] [place] [address]- 2546 Apr, [facility] [address] [id number] [place] [address]- 1339 Apr, [facility] [address] [facility] [id number] [place] [id number] October, IMMUNIZATIONS No Known Immunizations SOCIAL HISTORY Never Assessed REASON FOR VISIT Micaela appt PLAN OF CARE VITAL SIGNS MEDICATIONS Unknown [...]
--- OUTSIDE RECORDS SUMMARY | 2018-03-17 11:37 | XMS REPORT | Continuity of Care Document ---
Author Author [facility] Address Unknown Phone Unavailable Allergies Active Description Code Type Severity Reaction Onset Reported/Identified Relationship to Patient Clinical Status Yes codeine [id number] Drug Allergy Mild N/A 05/27/2008 Yes codeine Drug Allergy N/A N/A 08/10/2008 Yes codeine Drug Allergy 08/10/2008 Yes bees OA N/A N/A 12/14/2008 Yes bees OA 12/14/2008 Yes Bactrim DS 800-160 mg tablet Drug Allergy N/A N/A 01/06/2014 Yes sulfamethoxazole [id number] Drug Allergy Severe N/A 03/04/2014 Yes trimethoprim [id number] Drug Allergy Severe N/A 03/04/2014 Yes hydrocodone-acetaminophen 10-325 mg tablet Drug Allergy N/A N/A 2014 Yes bee venom (honey bee) [id number] Drug Allergy Unknown N/A 09/16/2014 Yes venom-honey bee [id number] Drug Allergy Unknown N/A 09/16/2014 Yes codeine [id number] Drug Allergy Severe ANAPHYLAXIS BUT 11/11/2014 Medications There is no data. 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 05/10/1453 SOSA RESENDIZ MD, Ot F15.10 OTHER STIMULANT ABUSE, UNCOMPLICATED 05/10/1453 SOSA RESENDIZ MD Ot L03.818 CELLULITIS OF OTHER SITES 05/10/1453 MARTÍN MD, SOSA G Ot L97.122 NON-PRESSURE CHRONIC ULCER OF LEFT THIGH 01/10/2008 JOSIAH DIE ATTACHER, RASHEED S 724.5 Backache Unspecified 01/10/2008 724.5 Backache Unspecified 01/10/2008 JOSIAH DIE ATTACHER, RASHEED S 724.5 Backache Unspecified 01/10/2008 724.5 Backache Unspecified 01/10/2008 724.5 Backache Unspecified 01/10/2008 JOSIAH DIE ATTACHER, RASHEED S 724.5 Backache Unspecified 01/10/2008 JOSIAH DIE ATTACHER, RASHEED S 724.5 Backache Unspecified 01/10/2008 JOSIAH DIE ATTACHER, RASHEED S 724.5 Backache Unspecified 01/10/2008 JOSIAH DIE ATTACHER, RASHEED S 724.5 Backache Unspecified 01/10/2008 JOSIAH DIE ATTACHERNAKIA LockwoodNDA S 724.5 Backache Unspecified 01/10/2008 BYRON ESCOTO, AMINA Marr 724.5 Backache Unspecified 01/10/2008 JACK YUAN DO K 724.5 Backache Unspecified 01/10/2008 JOSIAH DIE ATTACHER, RASHEED S 724.5 Backache Unspecified 01/10/2008 JOSIAH DIE ATTACHERNAKIA LockwoodNDA S 724.5 Backache Unspecified 01/10/2008 NANCY ANAYA APRN 724.5 Backache Unspecified 01/10/2008 JOSIAH DIE ATTACHER, RASHEED S 724.5 Backache Unspecified 01/10/2008 NAKIA RAHMAN APRNNDA S 724.5 Backache Unspecified 01/10/2008 YUAN INDER HDEZA K 724.5 Backache Unspecified 01/10/2008 JOSIAH DIE ATTACHER, RASHEED S 724.5 Backache Unspecified 01/10/2008 JOSIAH DIE ATTACHER, RASHEED S 724.5 Backache Unspecified 01/10/2008 NICCI ESCOTO, ARIAS 724.5 Backache Unspecified 01/10/2008 JOSIAH DIE ATTACHER, RASHEED S 724.5 Backache Unspecified 01/10/2008 JOSIAH LERNER RASHEED S 724.5 Backache Unspecified 01/10/2008 JACK YUAN DO K 724.5 Backache Unspecified 01/10/2008 JOSIAH DIE ATTACHER, RASHEED S 724.5 Backache Unspecified 01/10/2008 JOSIAH DIE ATTACHER, RASHEED S 724.5 Backache Unspecified 01/10/2008 JOSIAH DIE ATTACHER, RASHEED S 724.5 Backache Unspecified 02/18/2008 JOSIAH DIE ATTACHER, RASHEED S 729.1 MYALGIA AND MYOSITIS UNSPECIFIED 02/18/2008 729.1 MYALGIA AND MYOSITIS UNSPECIFIED 02/18/2008 JOSIAH DIE ATTACHER, RASHEED S 729.1 MYALGIA AND MYOSITIS UNSPECIFIED 02/18/2008 729.1 MYALGIA AND MYOSITIS UNSPECIFIED 02/18/2008 729.1 MYALGIA AND MYOSITIS UNSPECIFIED 02/18/2008 JOSIAH DIE ATTACHER, RASHEED S 729.1 MYALGIA AND MYOSITIS UNSPECIFIED 02/18/2008 JOSIAH LERNER RASHEED S 729.1 MYALGIA AND MYOSITIS UNSPECIFIED 02/18/2008 JOSIAH DIE ATTACHER, RASHEED S 729.1 MYALGIA AND MYOSITIS UNSPECIFIED 02/18/2008 JOSIAH DIE ATTACHER, RASHEED S 729.1 MYALGIA AND MYOSITIS UNSPECIFIED 02/18/2008 JOSIAH DIE ATTACHER, RASHEED S 729.1 MYALGIA AND MYOSITIS UNSPECIFIED 02/18/2008 BYRON ESCOTO, AMINA Marr 729.1 MYALGIA AND MYOSITIS UNSPECIFIED 02/18/2008 JACK YUAN DO K 729.1 MYALGIA AND MYOSITIS UNSPECIFIED 02/18/2008 JOSIAH DIE ATTACHER, RASHEED S 729.1 MYALGIA AND MYOSITIS UNSPECIFIED 02/18/2008 JOSIAH DIE ATTACHER, RASHEED S 729.1 MYALGIA AND MYOSITIS UNSPECIFIED 02/18/2008 NANCY ANAYA APRN 729.1 MYALGIA AND MYOSITIS UNSPECIFIED 02/18/2008 JOSIAH LERNER RASHEED S 729.1 MYALGIA AND MYOSITIS UNSPECIFIED 02/18/2008 JOSIAH DIE ATTACHER, RASHEED S 729.1 MYALGIA AND MYOSITIS UNSPECIFIED 02/18/2008 JACK YUAN DO 729.1 MYALGIA AND MYOSITIS UNSPECIFIED 02/18/2008 JOSIAH DIE ATTACHER, RASHEED S 729.1 MYALGIA AND MYOSITIS UNSPECIFIED 02/18/2008 JOSIAH DIE ATTACHER, RASHEED S 729.1 MYALGIA AND MYOSITIS UNSPECIFIED 02/18/2008 ARIAS GRAJEDA MD 729.1 MYALGIA AND MYOSITIS UNSPECIFIED 02/18/2008 JOSIAH DIE ATTACHER, RASHEED S 729.1 MYALGIA AND MYOSITIS UNSPECIFIED 02/18/2008 JOSIAH DIE ATTACHER, RASHEED S 729.1 MYALGIA AND MYOSITIS UNSPECIFIED 02/18/2008 JACK YUAN DO K 729.1 MYALGIA AND MYOSITIS UNSPECIFIED 02/18/2008 JOSIAH DIE ATTACHER, RASHEED S 729.1 MYALGIA AND MYOSITIS UNSPECIFIED 02/18/2008 JOSIAH DIE ATTACHER, RASHEED S 729.1 MYALGIA AND MYOSITIS UNSPECIFIED 02/18/2008 JOSIAH DIE ATTACHER, RASHEED S 729.1 MYALGIA AND MYOSITIS UNSPECIFIED 06/22/2008 JOSIAH DIE ATTACHER, RASHEED S 782.1 Rash 06/22/2008 782.1 Rash 06/22/2008 JOSIAH DIE ATTACHER, RASHEED S 782.1 Rash 06/22/2008 782.1 Rash 06/22/2008 782.1 Rash 06/22/2008 JOSIAH DIE ATTACHER, RASHEED S 782.1 Rash 06/22/2008 JOSIAH DIE ATTACHER, RASHEED S 782.1 Rash 06/22/2008 JOSIAH DIE ATTACHER, RASHEED S 782.1 Rash 06/22/2008 JOSIAH DIE ATTACHER, RASHEED S 782.1 Rash 06/22/2008 JOSIAH DIE ATTACHER, RASHEED S 782.1 Rash 06/22/2008 BYRON ESCOTO, AMINA Marr 782.1 Rash 06/22/2008 JACK YUAN DO K 782.1 Rash 06/22/2008 JOSIAH DIE ATTACHER, RASHEED S 782.1 Rash 06/22/2008 JOSIAH DIE ATTACHER, RASHEED S 782.1 Rash 06/22/2008 MADL DIE ATTACHER, NANCY L 782.1 Rash 06/22/2008 JOSIAH DIE ATTACHER, RASHEED S 782.1 Rash 06/22/2008 JOSIAH DIE ATTACHER, RASHEED S 782.1 Rash 06/22/2008 YUAN DO, JACK K 782.1 Rash 06/22/2008 JOSIAH DIE ATTACHER, RASHEED S 782.1 Rash 06/22/2008 JOSIAH DIE ATTACHER, RASHEED S 782.1 Rash 06/22/2008 NICCI ESCOTO, ARIAS 782.1 Rash 06/22/2008 JOSIAH DIE ATTACHER, RASHEED S 782.1 Rash 06/22/2008 JOSIAH DIE ATTACHER, RASHEED S 782.1 Rash 06/22/2008 YUAN DO, JACK K 782.1 Rash 06/22/2008 JOSIAH DIE ATTACHER, RASHEED S 782.1 Rash 06/22/2008 JOSIAH DIE ATTACHER, RASHEED S 782.1 Rash 06/22/2008 JOSIAH DIE ATTACHER, RASHEED S 782.1 Rash 08/10/2008 JOSIAH DIE ATTACHER, RASHEED S 708.9 Unspecified Urticaria 08/10/2008 708.9 Unspecified Urticaria 08/10/2008 JOSIAH DIE ATTACHER, RASHEED S 708.9 Unspecified Urticaria 08/10/2008 708.9 Unspecified Urticaria 08/10/2008 708.9 Unspecified Urticaria 08/10/2008 JOSIAH DIE ATTACHER, RASHEED S 708.9 Unspecified Urticaria 08/10/2008 JOSIAH DIE ATTACHER, RASHEED S 708.9 Unspecified Urticaria 08/10/2008 JOSIAH DIE ATTACHER, RASHEED S 708.9 Unspecified Urticaria 08/10/2008 JOSIAH DIE ATTACHER, RASHEED S 708.9 Unspecified Urticaria 08/10/2008 JOSIAH DIE ATTACHER, RASHEED S 708.9 Unspecified Urticaria 08/10/2008 BYRON ESCOTO, AMINA Marr 708.9 Unspecified Urticaria 08/10/2008 YUAN DO, JACK K 708.9 Unspecified Urticaria 08/10/2008 JOSIAH DIE ATTACHER, RASHEED S 708.9 Unspecified Urticaria 08/10/2008 JOSIAH DIE ATTACHER, RASHEED S 708.9 Unspecified Urticaria 08/10/2008 MADL DIE ATTACHER, NANCY L 708.9 Unspecified Urticaria 08/10/2008 JOSIAH DIE ATTACHER, RASHEED S 708.9 Unspecified Urticaria 08/10/2008 JOSIAH DIE ATTACHER, RASHEED S 708.9 Unspecified Urticaria 08/10/2008 YUAN DO, JACK K 708.9 Unspecified Urticaria 08/10/2008 JOSIAH DIE ATTACHER, RASHEED S 708.9 Unspecified Urticaria 08/10/2008 JOSIAH DIE ATTACHER, RASHEED S 708.9 Unspecified Urticaria 08/10/2008 ARIAS GRAJEDA MD 708.9 Unspecified Urticaria 08/10/2008 JOSIAH DIE ATTACHER, RASHEED S 708.9 Unspecified Urticaria 08/10/2008 JOSIAH DIE ATTACHER, RASHEED S 708.9 Unspecified Urticaria 08/10/2008 YUAN DO, JACK K 708.9 Unspecified Urticaria 08/10/2008 JOSIAH DIE ATTACHER, RASHEED S 708.9 Unspecified Urticaria 08/10/2008 JOSIAH DIE ATTACHER, RASHEED S 708.9 Unspecified Urticaria 08/10/2008 JOSIAH DIE ATTACHER, RASHEED S 708.9 Unspecified Urticaria 08/17/2008 JOSIAH DIE ATTACHER, RASHEED S 465.9 Acute Upper Respiratory Infections Of Unspecified Site 08/17/2008 JOSIAH DIE ATTACHER, RASHEED S 692.81 Dermatitis Due To Cosmetics 08/17/2008 465.9 Acute Upper Respiratory Infections Of Unspecified Site 08/17/2008 692.81 Dermatitis Due To Cosmetics 08/17/2008 JOSAIH DIE ATTACHER, RASHEED S 465.9 Acute Upper Respiratory Infections Of Unspecified Site 08/17/2008 JOSIAH DIE ATTACHER, RASHEED S 692.81 Dermatitis Due To Cosmetics 08/17/2008 465.9 Acute Upper Respiratory Infections Of Unspecified Site 08/17/2008 692.81 Dermatitis Due To Cosmetics 08/17/2008 465.9 Acute Upper Respiratory Infections Of Unspecified Site 08/17/2008 692.81 Dermatitis Due To Cosmetics 08/17/2008 JOSIAH DIE ATTACHER, RASHEED S 465.9 Acute Upper Respiratory Infections Of Unspecified Site 08/17/2008 JOSIAH DIE ATTACHER, RASHEED S 692.81 Dermatitis Due To Cosmetics 08/17/2008 JOSIAH DIE ATTACHER, RASHEED S 465.9 Acute Upper Respiratory Infections Of Unspecified Site 08/17/2008 JOSIAH DIE ATTACHER, RASHEED S 692.81 Dermatitis Due To Cosmetics 08/17/2008 JOSIAH DIE ATTACHER, RASHEED S 465.9 Acute Upper Respiratory Infections Of Unspecified Site 08/17/2008 JOSIAH DIE ATTACHER, RASHEED S 692.81 Dermatitis Due To Cosmetics 08/17/2008 JOSIAH DIE ATTACHER, RASHEED S 465.9 Acute Upper Respiratory Infections Of Unspecified Site 08/17/2008 JOSIAH DIE ATTACHER, RASHEED S 692.81 Dermatitis Due To Cosmetics 08/17/2008 JOSIAH DIE ATTACHER, RASHEED S 465.9 Acute Upper Respiratory Infections Of Unspecified Site 08/17/2008 JOSIAH DIE ATTACHER, RASHEED S 692.81 Dermatitis Due To Cosmetics 08/17/2008 AMINA MATTHEWS MD 465.9 Acute Upper Respiratory Infections Of Unspecified Site 08/17/2008 AMINA MATTHEWS MD 692.81 Dermatitis Due To Cosmetics 08/17/2008 YUAN DO, JACK K 465.9 Acute Upper Respiratory Infections Of Unspecified Site 08/17/2008 YUAN DO, JACK K 692.81 Dermatitis Due To Cosmetics 08/17/2008 JOSIAH DIE ATTACHER, RASHEED S 465.9 Acute Upper Respiratory Infections Of Unspecified Site 08/17/2008 JOSIAH DIE ATTACHER, RASHEED S 692.81 Dermatitis Due To Cosmetics 08/17/2008 JOSIAH DIE ATTACHER, RASHEED S 465.9 Acute Upper Respiratory Infections Of Unspecified Site 08/17/2008 JOSIAH DIE ATTACHER, RASHEED S 692.81 Dermatitis Due To Cosmetics 08/17/2008 MADL DIE ATTACHER, NANCY L 465.9 Acute Upper Respiratory Infections Of Unspecified Site 08/17/2008 MADL DIE ATTACHER, NANCY L 692.81 Dermatitis Due To Cosmetics 08/17/2008 JOSIAH DIE ATTACHER, RASHEED S 465.9 Acute Upper Respiratory Infections Of Unspecified Site 08/17/2008 JOSIAH DIE ATTACHER, RASHEED S 692.81 Dermatitis Due To Cosmetics 08/17/2008 JOSIAH DIE ATTACHER, RASHEED S 465.9 Acute Upper Respiratory Infections Of Unspecified Site 08/17/2008 JOSIAH DIE ATTACHER, RASHEED S 692.81 Dermatitis Due To Cosmetics 08/17/2008 YUAN DO, JACK K 465.9 Acute Upper Respiratory Infections Of Unspecified Site 08/17/2008 YUAN DO, JACK K 692.81 Dermatitis Due To Cosmetics 08/17/2008 JOSIAH DIE ATTACHER, RASHEED S 465.9 Acute Upper Respiratory Infections Of Unspecified Site 08/17/2008 JOSIAH DIE ATTACHER, RASHEED S 692.81 Dermatitis Due To Cosmetics 08/17/2008 JOSIAH DIE ATTACHER, RASHEED S 465.9 Acute Upper Respiratory Infections Of Unspecified Site 08/17/2008 JOSIAH DIE ATTACHER, RASHEED S 692.81 Dermatitis Due To Cosmetics 08/17/2008 ARIAS GRAJEDA MD 465.9 Acute Upper Respiratory Infections Of Unspecified Site 08/17/2008 ARIAS GRAJEDA MD 692.81 Dermatitis Due To Cosmetics 08/17/2008 JOSIAH DIE ATTACHER, RASHEED S 465.9 Acute Upper Respiratory Infections Of Unspecified Site 08/17/2008 JOSIAH DIE ATTACHER, RASHEED S 692.81 Dermatitis Due To Cosmetics 08/17/2008 JOSIAH DIE ATTACHER, RASHEED S 465.9 Acute Upper Respiratory Infections Of Unspecified Site 08/17/2008 JOSIAH DIE ATTACHER, RASHEED S 692.81 Dermatitis Due To Cosmetics 08/17/2008 YUAN DO, JACK K 465.9 Acute Upper Respiratory Infections Of Unspecified Site 08/17/2008 YUAN DO, JACK K 692.81 Dermatitis Due To Cosmetics 08/17/2008 JOSIAH DIE ATTACHER, RASHEED S 465.9 Acute Upper Respiratory Infections Of Unspecified Site 08/17/2008 JOSIAH DIE ATTACHER, RASHEED S 692.81 Dermatitis Due To Cosmetics 08/17/2008 JOSIAH DIE ATTACHER, RASHEED S 465.9 Acute Upper Respiratory Infections Of Unspecified Site 08/17/2008 JOSIAH DIE ATTACHER, RASHEED S 692.81 Dermatitis Due To Cosmetics 08/17/2008 JOSIAH DIE ATTACHER, RASHEED S 465.9 Acute Upper Respiratory Infections Of Unspecified Site 08/17/2008 JOSIAH DIE ATTACHER, RASHEED S 692.81 Dermatitis Due To Cosmetics 10/27/2008 JOSIAH DIE ATTACHER, RASHEED S 696.1 Other Psoriasis And Similar Disorders 10/27/2008 JOSIAH DIE ATTACHER, RASHEED S 704.00 Alopecia Unspecified 10/27/2008 696.1 Other Psoriasis And Similar Disorders 10/27/2008 704.00 Alopecia Unspecified 10/27/2008 JOSIAH DIE ATTACHER, RASHEED S 696.1 Other Psoriasis And Similar Disorders 10/27/2008 JOSIAH COVARRUBIASN, RASHEED S 704.00 Alopecia Unspecified 10/27/2008 696.1 Other Psoriasis And Similar Disorders 10/27/2008 704.00 Alopecia Unspecified 10/27/2008 696.1 Other Psoriasis And Similar Disorders 10/27/2008 704.00 Alopecia Unspecified 10/27/2008 JOSIAH COVARRUBIASN, RASHEED S 696.1 Other Psoriasis And Similar Disorders 10/27/2008 JOSIAH DIE ATTACHER, RASHEED S 704.00 Alopecia Unspecified 10/27/2008 JOSIAH DIE ATTACHER, RASHEED S 696.1 Other Psoriasis And Similar Disorders 10/27/2008 JOSIAH DIE ATTACHER, RASHEED S 704.00 Alopecia Unspecified 10/27/2008 JOSIAH DIE ATTACHER, RASHEED S 696.1 Other Psoriasis And Similar Disorders 10/27/2008 JOSIAH DIE ATTACHER, RASHEED S 704.00 Alopecia Unspecified 10/27/2008 JOSIAH DIE ATTACHER, RASHEED S 696.1 Other Psoriasis And Similar Disorders 10/27/2008 JOSIAH DIE ATTACHER, RASHEED S 704.00 Alopecia Unspecified 10/27/2008 JOSIAH DIE ATTACHER, RASHEED S 696.1 Other Psoriasis And Similar Disorders 10/27/2008 JOSIAH DIE ATTACHER, RASHEED S 704.00 Alopecia Unspecified 10/27/2008 BYRON ESCOTO, AMINA Marr 696.1 Other Psoriasis And Similar Disorders 10/27/2008 BYRON ESCOTO, AMINA Marr 704.00 Alopecia Unspecified 10/27/2008 YUAN DO, JACK K 696.1 Other Psoriasis And Similar Disorders 10/27/2008 YUAN DO, JACK K 704.00 Alopecia Unspecified 10/27/2008 JOSIAH DIE ATTACHER, RASHEED S 696.1 Other Psoriasis And Similar Disorders 10/27/2008 JOSIAH DIE ATTACHER, RASHEED S 704.00 Alopecia Unspecified 10/27/2008 JOSIAH DIE ATTACHER, RASHEED S 696.1 Other Psoriasis And Similar Disorders 10/27/2008 JOSIAH DIE ATTACHER, RASHEED S 704.00 Alopecia Unspecified 10/27/2008 MADL DIE ATTACHER, NANCY L 696.1 Other Psoriasis And Similar Disorders 10/27/2008 MADL DIE ATTACHER, NANCY L 704.00 Alopecia Unspecified 10/27/2008 JOSIAH DIE ATTACHER, RASHEED S 696.1 Other Psoriasis And Similar Disorders 10/27/2008 JOSIAH DIE ATTACHER, RASHEED S 704.00 Alopecia Unspecified 10/27/2008 JOSIAH DIE ATTACHER, RASHEED S 696.1 Other Psoriasis And Similar Disorders 10/27/2008 JOSIAH DIE ATTACHER, RASHEED S 704.00 Alopecia Unspecified 10/27/2008 YUAN DO, JACK K 696.1 Other Psoriasis And Similar Disorders 10/27/2008 KWABENA HDEZ JACK K 704.00 Alopecia Unspecified 10/27/2008 JOSIAH DIE ATTACHER, RASHEED S 696.1 Other Psoriasis And Similar Disorders 10/27/2008 JOSIAH DIE ATTACHER, RASHEED S 704.00 Alopecia Unspecified 10/27/2008 JOSIAH DIE ATTACHER, RASHEED S 696.1 Other Psoriasis And Similar Disorders 10/27/2008 JOSIAH DIE ATTACHER, RASHEED S 704.00 Alopecia Unspecified 10/27/2008 NICCI ESCOTO, ARIAS 696.1 Other Psoriasis And Similar Disorders 10/27/2008 ARIAS GRAJEDA MD 704.00 Alopecia Unspecified 10/27/2008 JOSIAH DIE ATTACHER, RASHEED S 696.1 Other Psoriasis And Similar Disorders 10/27/2008 JOSIAH DIE ATTACHER, RASHEED S 704.00 Alopecia Unspecified 10/27/2008 JOSIAH DIE ATTACHER, RASHEED S 696.1 Other Psoriasis And Similar Disorders 10/27/2008 JOSIAH DIE ATTACHER, RASHEED S 704.00 Alopecia Unspecified 10/27/2008 YUAN DO, JACK K 696.1 Other Psoriasis And Similar Disorders 10/27/2008 YUAN DO, JACK K 704.00 Alopecia Unspecified 10/27/2008 JOSIAH DIE ATTACHER, RASHEED S 696.1 Other Psoriasis And Similar Disorders 10/27/2008 JOSIAH DIE ATTACHER, RASHEED S 704.00 Alopecia Unspecified 10/27/2008 JOSIAH DIE ATTACHER, RASHEED S 696.1 Other Psoriasis And Similar Disorders 10/27/2008 JOSIAH DIE ATTACHER, RASHEED S 704.00 Alopecia Unspecified 10/27/2008 JOSIAH DIE ATTACHER, RASHEED S 696.1 Other Psoriasis And Similar Disorders 10/27/2008 JOSIAH DIE ATTACHER, RASHEED S 704.00 Alopecia Unspecified 12/14/2008 JOSIAH DIE ATTACHER, RASHEED S 682.3 Cellulitis And Abscess Of Upper Arm And Forearm 12/14/2008 682.3 Cellulitis And Abscess Of Upper Arm And Forearm 12/14/2008 JOSIAH DIE ATTACHER, RASHEED S 682.3 Cellulitis And Abscess Of Upper Arm And Forearm 12/14/2008 682.3 Cellulitis And Abscess Of Upper Arm And Forearm 12/14/2008 682.3 Cellulitis And Abscess Of Upper Arm And Forearm 12/14/2008 JOSIAH DIE ATTACHER, RASHEED S 682.3 Cellulitis And Abscess Of Upper Arm And Forearm 12/14/2008 JOSIAH DIE ATTACHER, RASHEED S 682.3 Cellulitis And Abscess Of Upper Arm And Forearm 12/14/2008 JOSIAH DIE ATTACHER, RASHEED S 682.3 Cellulitis And Abscess Of Upper Arm And Forearm 12/14/2008 JOSIAH DIE ATTACHER, RASHEED S 682.3 Cellulitis And Abscess Of Upper Arm And Forearm 12/14/2008 JOSIAH DIE ATTACHER, RASHEED S 682.3 Cellulitis And Abscess Of Upper Arm And Forearm 12/14/2008 BYRON ESCOTO, AMINA Marr 682.3 Cellulitis And Abscess Of Upper Arm And Forearm 12/14/2008 JACK YUAN DO 682.3 Cellulitis And Abscess Of Upper Arm And Forearm 12/14/2008 JOSIAH DIE ATTACHER, RASHEED S 682.3 Cellulitis And Abscess Of Upper Arm And Forearm 12/14/2008 JOSIAH DIE ATTACHER, RASHEED S 682.3 Cellulitis And Abscess Of Upper Arm And Forearm 12/14/2008 JACLYN COVARRUBIASNNANCY 682.3 Cellulitis And Abscess Of Upper Arm And Forearm 12/14/2008 JOSIAH DIE ATTACHER, RASHEED S 682.3 Cellulitis And Abscess Of Upper Arm And Forearm 12/14/2008 JOSIAH DIE ATTACHER, RASHEED S 682.3 Cellulitis And Abscess Of Upper Arm And Forearm 12/14/2008 JACK YUAN DO 682.3 Cellulitis And Abscess Of Upper Arm And Forearm 12/14/2008 JOSIAH DIE ATTACHER, RASHEED S 682.3 Cellulitis And Abscess Of Upper Arm And Forearm 12/14/2008 JOSIAH DIE ATTACHER, RASHEED S 682.3 Cellulitis And Abscess Of Upper Arm And Forearm 12/14/2008 NICCI ESCOTO, ARIAS 682.3 Cellulitis And Abscess Of Upper Arm And Forearm 12/14/2008 JOSIAH DIE ATTACHER, RASHEED S 682.3 Cellulitis And Abscess Of Upper Arm And Forearm 12/14/2008 JOSIAH DIE ATTACHER, RASHEED S 682.3 Cellulitis And Abscess Of Upper Arm And Forearm 12/14/2008 JACK YUAN DO 682.3 Cellulitis And Abscess Of Upper Arm And Forearm 12/14/2008 JOSIAH DIE ATTACHER, RASHEED S 682.3 Cellulitis And Abscess Of Upper Arm And Forearm 12/14/2008 JOSIAH DIE ATTACHER, RASHEED S 682.3 Cellulitis And Abscess Of Upper Arm And Forearm 12/14/2008 JOSIAH DIE ATTACHER, RASHEED S 682.3 Cellulitis And Abscess Of Upper Arm And Forearm 08/03/2009 JOSIAH COVARRUBIASN, RASHEED S 496 CHRONIC OBSTRUCTIVE PULMONARY DISEASE 08/03/2009 496 CHRONIC OBSTRUCTIVE PULMONARY DISEASE 08/03/2009 JOSIAH DIE ATTACHER, RASHEED S 496 CHRONIC OBSTRUCTIVE PULMONARY DISEASE 08/03/2009 496 CHRONIC OBSTRUCTIVE PULMONARY DISEASE 08/03/2009 496 CHRONIC OBSTRUCTIVE PULMONARY DISEASE 08/03/2009 JOSIAH DIE ATTACHER, RASHEED S 496 CHRONIC OBSTRUCTIVE PULMONARY DISEASE 08/03/2009 JOSIAH DIE ATTACHER, RASHEED S 496 CHRONIC OBSTRUCTIVE PULMONARY DISEASE 08/03/2009 JOSIAH DIE ATTACHER, RASHEED S 496 CHRONIC OBSTRUCTIVE PULMONARY DISEASE 08/03/2009 JOSIAH DIE ATTACHER, RASHEED S 496 CHRONIC OBSTRUCTIVE PULMONARY DISEASE 08/03/2009 JOSIAH DIE ATTACHER, RASHEED S 496 CHRONIC OBSTRUCTIVE PULMONARY DISEASE 08/03/2009 BYRON ESCOTO, AMINA Marr 496 CHRONIC OBSTRUCTIVE PULMONARY DISEASE 08/03/2009 JACK YUAN DO 496 CHRONIC OBSTRUCTIVE PULMONARY DISEASE 08/03/2009 JOSIAH DIE ATTACHER, RASHEED S 496 CHRONIC OBSTRUCTIVE PULMONARY DISEASE 08/03/2009 JOSIAH DIE ATTACHER, RASHEED S 496 CHRONIC OBSTRUCTIVE PULMONARY DISEASE 08/03/2009 JACLYN DIE ATTACHER, NANCY Gordon 496 CHRONIC OBSTRUCTIVE PULMONARY DISEASE 08/03/2009 JOSIAH DIE ATTACHER, RASHEED S 496 CHRONIC OBSTRUCTIVE PULMONARY DISEASE 08/03/2009 JOSIAH DIE ATTACHER, RASHEED S 496 CHRONIC OBSTRUCTIVE PULMONARY DISEASE 08/03/2009 JACK YUAN DO K 496 CHRONIC OBSTRUCTIVE PULMONARY DISEASE 08/03/2009 JOSIAH DIE ATTACHER, RASHEED S 496 CHRONIC OBSTRUCTIVE PULMONARY DISEASE 08/03/2009 JOSIAH DIE ATTACHER, RASHEED S 496 CHRONIC OBSTRUCTIVE PULMONARY DISEASE 08/03/2009 ARIAS GRAJEDA MD 496 CHRONIC OBSTRUCTIVE PULMONARY DISEASE 08/03/2009 JOSIAH DIE ATTACHER, RASHEED S 496 CHRONIC OBSTRUCTIVE PULMONARY DISEASE 08/03/2009 JOSIAH DIE ATTACHER, RASHEED S 496 CHRONIC OBSTRUCTIVE PULMONARY DISEASE 08/03/2009 JACK YUAN DO K 496 CHRONIC OBSTRUCTIVE PULMONARY DISEASE 08/03/2009 JOSIAH DIE ATTACHER, RASHEED S 496 CHRONIC OBSTRUCTIVE PULMONARY DISEASE 08/03/2009 JOSIAH DIE ATTACHER, RASHEED S 496 CHRONIC OBSTRUCTIVE PULMONARY DISEASE 08/03/2009 JOSIAH DIE ATTACHER, RASHEED S 496 CHRONIC OBSTRUCTIVE PULMONARY DISEASE 04/05/2010 JOSIAH DIE ATTACHER, RASHEED S 535.40 Other Specified Gastritis (without Hemorrhage) 04/05/2010 535.40 Other Specified Gastritis (without Hemorrhage) 04/05/2010 JOSIAH DIE ATTACHER, RASHEED S 535.40 Other Specified Gastritis (without Hemorrhage) 04/05/2010 535.40 Other Specified Gastritis (without Hemorrhage) 04/05/2010 535.40 Other Specified Gastritis (without Hemorrhage) 04/05/2010 JOSIAH DIE ATTACHER, RASHEED S 535.40 Other Specified Gastritis (without Hemorrhage) 04/05/2010 JOSIAH DIE ATTACHER, RASHEED S 535.40 Other Specified Gastritis (without Hemorrhage) 04/05/2010 JOSIAH DIE ATTACHER, RASHEED S 535.40 Other Specified Gastritis (without Hemorrhage) 04/05/2010 JOSIAH DIE ATTACHER, RASHEED S 535.40 Other Specified Gastritis (without Hemorrhage) 04/05/2010 JOSIAH DIE ATTACHER, RASHEED S 535.40 Other Specified Gastritis (without Hemorrhage) 04/05/2010 AMINA MATTHEWS MD 535.40 Other Specified Gastritis (without Hemorrhage) 04/05/2010 JACK YUAN DO 535.40 Other Specified Gastritis (without Hemorrhage) 04/05/2010 JOSIAH DIE ATTACHER, RASHEED S 535.40 Other Specified Gastritis (without Hemorrhage) 04/05/2010 JOSIAH DIE ATTACHER, RASHEED S 535.40 Other Specified Gastritis (without Hemorrhage) 04/05/2010 NANCY ANAYA APRN L 535.40 Other Specified Gastritis (without Hemorrhage) 04/05/2010 JOSIAH DIE ATTACHER, RASHEED S 535.40 Other Specified Gastritis (without Hemorrhage) 04/05/2010 JOSIAH DIE ATTACHER, RASHEED S 535.40 Other Specified Gastritis (without Hemorrhage) 04/05/2010 JACK YUAN DO 535.40 Other Specified Gastritis (without Hemorrhage) 04/05/2010 JOSIAH DIE ATTACHER, RASHEED S 535.40 Other Specified Gastritis (without Hemorrhage) 04/05/2010 JOSIAH DIE ATTACHER, RASHEED S 535.40 Other Specified Gastritis (without Hemorrhage) 04/05/2010 ARIAS GRAJEDA MD 535.40 Other Specified Gastritis (without Hemorrhage) 04/05/2010 JOSIAH DIE ATTACHER, RASHEED S 535.40 Other Specified Gastritis (without Hemorrhage) 04/05/2010 JOSIAH DIE ATTACHER, RASHEED S 535.40 Other Specified Gastritis (without Hemorrhage) 04/05/2010 YUAN DO, JACK K 535.40 Other Specified Gastritis (without Hemorrhage) 04/05/2010 JOSIAH DIE ATTACHER, RASHEED S 535.40 Other Specified Gastritis (without Hemorrhage) 04/05/2010 JOSIAH DIE ATTACHER, RASHEED S 535.40 Other Specified Gastritis (without Hemorrhage) 04/05/2010 JOSIAH DIE ATTACHER RASHEED S 535.40 Other Specified Gastritis (without Hemorrhage) 05/23/2010 JOSIAH DIE ATTACHER, RASHEED S V18.0 FAM HX DIABETES MELLITUS 05/23/2010 V18.0 FAM HX DIABETES MELLITUS 05/23/2010 JOSIAH DIE ATTACHER RASHEED S V18.0 FAM HX DIABETES MELLITUS 05/23/2010 V18.0 FAM HX DIABETES MELLITUS 05/23/2010 V18.0 FAM HX DIABETES MELLITUS 05/23/2010 JOSIAH DIE ATTACHERNAKIARASHEED S V18.0 FAM HX DIABETES MELLITUS 05/23/2010 JOSIAH DIE ATTACHERNAKIARASHEED S V18.0 FAM HX DIABETES MELLITUS 05/23/2010 JOSIAH DIE ATTACHER RASHEED S V18.0 FAM HX DIABETES MELLITUS 05/23/2010 JOSIAH DIE ATTACHERNAKIARASHEED S V18.0 FAM HX DIABETES MELLITUS 05/23/2010 NAKIA RAHMAN APRNNDA S V18.0 FAM HX DIABETES MELLITUS 05/23/2010 AMINA MATTHEWS MD V18.0 FAM HX DIABETES MELLITUS 05/23/2010 JACK YUAN DO K V18.0 FAM HX DIABETES MELLITUS 05/23/2010 JOSIAH DIE ATTACHER RASHEED S V18.0 FAM HX DIABETES MELLITUS 05/23/2010 JOSIAH DIE ATTACHER RASHEED S V18.0 FAM HX DIABETES MELLITUS 05/23/2010 NANCY ANAYA APRN V18.0 FAM HX DIABETES MELLITUS 05/23/2010 JOSIAH DIE ATTACHER, RASHEED S V18.0 FAM HX DIABETES MELLITUS 05/23/2010 JOSIAH DIE ATTACHER, RASHEED S V18.0 FAM HX DIABETES MELLITUS 05/23/2010 JACK YUAN DO K V18.0 FAM HX DIABETES MELLITUS 05/23/2010 JOSIAH DIE ATTACHER RASHEED S V18.0 FAM HX DIABETES MELLITUS 05/23/2010 JOSIAH COVARRUBIASN, RASHEED S V18.0 FAM HX DIABETES MELLITUS 05/23/2010 ARIAS GRAJEDA MD V18.0 FAM HX DIABETES MELLITUS 05/23/2010 JOSIAH DIE ATTACHER, RASHEED S V18.0 FAM HX DIABETES MELLITUS 05/23/2010 JOSIAH DIE ATTACHER, RASHEED S V18.0 FAM HX DIABETES MELLITUS 05/23/2010 JACK YUAN DO V18.0 FAM HX DIABETES MELLITUS 05/23/2010 JOSIAH DIE ATTACHER, RASHEED S V18.0 FAM HX DIABETES MELLITUS 05/23/2010 JOSIAH DIE ATTACHER, RASHEED S V18.0 FAM HX DIABETES MELLITUS 05/23/2010 JOSIAH DIE ATTACHER, RASHEED S V18.0 FAM HX DIABETES MELLITUS 10/25/2010 JOSIAH LERNER RASHEED S 780.57 Unspecified Sleep Apnea 10/25/2010 JOSIAH LERNER, RASHEED S 780.79 Fatigue 10/25/2010 JOSIAH LERNER, RASHEED S 787.91 Diarrhea 10/25/2010 JOSIAH COVARRUBIASN, RASHEED S 788.1 Dysuria 10/25/2010 JOSIAH COVARRUBIASN, RASHEED S 799.02 Hypoxemia 10/25/2010 780.57 Unspecified Sleep Apnea 10/25/2010 780.79 Fatigue 10/25/2010 787.91 Diarrhea 10/25/2010 788.1 Dysuria 10/25/2010 799.02 Hypoxemia 10/25/2010 JOSIAH LRENER, RASHEED S 780.57 Unspecified Sleep Apnea 10/25/2010 JOSIAH COVARRUBIASN, RASHEED S 780.79 Fatigue 10/25/2010 JOSIAH DIE ATTACHER, RASHEED S 787.91 Diarrhea 10/25/2010 JOSIAH COVARRUBIASN, RASHEED S 788.1 Dysuria 10/25/2010 JOSIAH LERNER, RASHEED S 799.02 Hypoxemia 10/25/2010 780.57 Unspecified Sleep Apnea 10/25/2010 780.79 Fatigue 10/25/2010 787.91 Diarrhea 10/25/2010 788.1 Dysuria 10/25/2010 799.02 Hypoxemia 10/25/2010 780.57 Unspecified Sleep Apnea 10/25/2010 780.79 Fatigue 10/25/2010 787.91 Diarrhea 10/25/2010 788.1 Dysuria 10/25/2010 799.02 Hypoxemia 10/25/2010 JOSIAH DIE ATTACHER, RASHEED S 780.57 Unspecified Sleep Apnea 10/25/2010 JOSIAH DIE ATTACHER, RASHEED S 780.79 Fatigue 10/25/2010 JOSIAH DIE ATTACHER, RASHEED S 787.91 Diarrhea 10/25/2010 JOSIAH DIE ATTACHER, RASHEED S 788.1 Dysuria 10/25/2010 JOSIAH DIE ATTACHER, RASHEED S 799.02 Hypoxemia 10/25/2010 JOSIAH DIE ATTACHER, RASHEED S 780.57 Unspecified Sleep Apnea 10/25/2010 JOSIAH DIE ATTACHER, RASHEED S 780.79 Fatigue 10/25/2010 JOSIAH DIE ATTACHER, RASHEED S 787.91 Diarrhea 10/25/2010 JOSIAH DIE ATTACHER, RASHEED S 788.1 Dysuria 10/25/2010 JOSIAH DIE ATTACHER, RASHEED S 799.02 Hypoxemia 10/25/2010 JOSIAH DIE ATTACHER, RASHEED S 780.57 Unspecified Sleep Apnea 10/25/2010 JOSIAH DIE ATTACHER, RASHEED S 780.79 Fatigue 10/25/2010 JOSIAH DIE ATTACHER, RASHEED S 787.91 Diarrhea 10/25/2010 JOSIAH DIE ATTACHER, RASHEED S 788.1 Dysuria 10/25/2010 JOSIAH DIE ATTACHER, RASHEED S 799.02 Hypoxemia 10/25/2010 JOSIAH DIE ATTACHER, RASHEED S 780.57 Unspecified Sleep Apnea 10/25/2010 JOSIAH DIE ATTACHER, RASHEED S 780.79 Fatigue 10/25/2010 JOSIAH DIE ATTACHER, RASHEED S 787.91 Diarrhea 10/25/2010 JOSIAH DIE ATTACHER, RASHEED S 788.1 Dysuria 10/25/2010 JOSIAH DIE ATTACHER, RASHEED S 799.02 Hypoxemia 10/25/2010 JOSIAH DIE ATTACHER, RASHEED S 780.57 Unspecified Sleep Apnea 10/25/2010 JOSIAH DIE ATTACHER, RASHEED S 780.79 Fatigue 10/25/2010 JOSIAH DIE ATTACHER, RASHEED S 787.91 Diarrhea 10/25/2010 JOSIAH DIE ATTACHER, RASHEED S 788.1 Dysuria 10/25/2010 JOSIAH DIE ATTACHER, RASHEED S 799.02 Hypoxemia 10/25/2010 AMINA MATTHEWS MD 780.57 Unspecified Sleep Apnea 10/25/2010 AMINA MATTHEWS [...] DO, JACK K 799.02 Hypoxemia 10/25/2010 JOSIAH DIE ATTACHER, RASHEED S 780.57 Unspecified Sleep Apnea 10/25/2010 JOSIAH DIE ATTACHER, RASHEED S 780.79 Fatigue 10/25/2010 JOSIAH DIE ATTACHER, RASHEED S 787.91 Diarrhea 10/25/2010 JOSIAH DIE ATTACHER, RASHEED S 788.1 Dysuria 10/25/2010 JOSIAH DIE ATTACHER, RASHEED S 799.02 Hypoxemia 10/25/2010 JOSIAH DIE ATTACHER, RASHEED S 780.57 Unspecified Sleep Apnea 10/25/2010 JOSIAH DIE ATTACHER, RASHEED S 780.79 Fatigue 10/25/2010 JOSIAH DIE ATTACHER, RASHEED S 787.91 Diarrhea 10/25/2010 JOSIAH DIE ATTACHER, RASHEED S 788.1 Dysuria 10/25/2010 JOSIAH DIE ATTACHER, RASHEED S 799.02 Hypoxemia 10/25/2010 MADL DIE ATTACHER, NANCY L 780.57 Unspecified Sleep Apnea 10/25/2010 MADL DIE ATTACHER, NANCY L 780.79 Fatigue 10/25/2010 MADL DIE ATTACHER, NANCY L 787.91 Diarrhea 10/25/2010 MADL DIE ATTACHER, NANCY L 788.1 Dysuria 10/25/2010 MADL DIE ATTACHER, NANCY L 799.02 Hypoxemia 10/25/2010 JOSIAH DIE ATTACHER, RASHEED S 780.57 Unspecified Sleep Apnea 10/25/2010 JOSIAH DIE ATTACHER, RASHEED S 780.79 Fatigue 10/25/2010 JOSIAH DIE ATTACHER, RASHEED S 787.91 Diarrhea 10/25/2010 JOSIAH DIE ATTACHER, RASHEED S 788.1 Dysuria 10/25/2010 JOSIAH DIE ATTACHER, RASHEED S 799.02 Hypoxemia 10/25/2010 JOSIAH DIE ATTACHER, RASHEED S 780.57 Unspecified Sleep Apnea 10/25/2010 JOSIAH DIE ATTACHER, RASHEED S 780.79 Fatigue 10/25/2010 JOSIAH DIE ATTACHER, RASHEED S 787.91 Diarrhea 10/25/2010 JOSIAH DIE ATTACHER, RASHEED S 788.1 Dysuria 10/25/2010 JOSIAH DIE ATTACHER, RASHEED S 799.02 Hypoxemia 10/25/2010 YUAN DO, JACK K 780.57 Unspecified Sleep Apnea 10/25/2010 YUAN DO, JACK K 780.79 Fatigue 10/25/2010 YUAN DO, JACK K 787.91 Diarrhea 10/25/2010 YUAN DO, JACK K 788.1 Dysuria 10/25/2010 YUAN DO, JACK K 799.02 Hypoxemia 10/25/2010 JOSIAH DIE ATTACHER, RASHEED S 780.57 Unspecified Sleep Apnea 10/25/2010 JOSIAH DIE ATTACHER, RASHEED S 780.79 Fatigue 10/25/2010 JOSIAH DIE ATTACHER, RASHEED S 787.91 Diarrhea 10/25/2010 JOSIAH DIE ATTACHER, RASHEED S 788.1 Dysuria 10/25/2010 JOSIAH DIE ATTACHER, RASHEED S 799.02 Hypoxemia 10/25/2010 JOSIAH DIE ATTACHER, RASHEED S 780.57 Unspecified Sleep Apnea 10/25/2010 JOSIAH DIE ATTACHER, RASHEED S 780.79 Fatigue 10/25/2010 JOSIAH DIE ATTACHER, RASHEED S 787.91 Diarrhea 10/25/2010 JOSIAH DIE ATTACHER, RASHEED S 788.1 Dysuria 10/25/2010 JOSIAH DIE ATTACHER, RASHEED S 799.02 Hypoxemia 10/25/2010 ARIAS GRAJEDA MD 780.57 Unspecified Sleep Apnea 10/25/2010 NICCI ESCOTO, ARIAS 780.79 Fatigue 10/25/2010 NICCI ESCOTO, ARIAS 787.91 Diarrhea 10/25/2010 NICCI ESCOTO, ARIAS 788.1 Dysuria 10/25/2010 ARIAS GRAJEDA MD 799.02 Hypoxemia 10/25/2010 JOSIAH DIE ATTACHER, RASHEED S 780.57 Unspecified Sleep Apnea 10/25/2010 JOSIAH DIE ATTACHER, RASHEED S 780.79 Fatigue 10/25/2010 JOSIAH DIE ATTACHER, RASHEED S 787.91 Diarrhea 10/25/2010 JOSIAH DIE ATTACHER, RASHEED S 788.1 Dysuria 10/25/2010 JOSIAH DIE ATTACHER, RASHEED S 799.02 Hypoxemia 10/25/2010 JOSIAH DIE ATTACHER, RASHEED S 780.57 Unspecified Sleep Apnea 10/25/2010 JOSIAH DIE ATTACHER, RASHEED S 780.79 Fatigue 10/25/2010 JOSIAH DIE ATTACHER, RASHEED S 787.91 Diarrhea 10/25/2010 JOSIAH DIE ATTACHER, RASHEED S 788.1 Dysuria 10/25/2010 JOSIAH DIE ATTACHER, RASHEED S 799.02 Hypoxemia 10/25/2010 YUAN DO, JACK K 780.57 Unspecified Sleep Apnea 10/25/2010 YUAN DO, JACK K 780.79 Fatigue 10/25/2010 YUAN DO, JACK K 787.91 Diarrhea 10/25/2010 YUAN DO, JACK K 788.1 Dysuria 10/25/2010 YUAN DO, JACK K 799.02 Hypoxemia 10/25/2010 JOSIAH DIE ATTACHER, RASHEED S 780.57 Unspecified Sleep Apnea 10/25/2010 JOSIAH DIE ATTACHER, RASHEED S 780.79 Fatigue 10/25/2010 JOSIAH DIE ATTACHER, RASHEED S 787.91 Diarrhea 10/25/2010 JOSIAH DIE ATTACHER, RASHEED S 788.1 Dysuria 10/25/2010 JOSIAH DIE ATTACHER, RASHEED S 799.02 Hypoxemia 10/25/2010 JOSIAH DIE ATTACHER, RASHEED S 780.57 Unspecified Sleep Apnea 10/25/2010 JOSIAH DIE ATTACHER, RASHEED S 780.79 Fatigue 10/25/2010 JOSIAH DIE ATTACHER, RASHEED S 787.91 Diarrhea 10/25/2010 JOSIAH DIE ATTACHER, RASHEED S 788.1 Dysuria 10/25/2010 JOSIAH DIE ATTACHER, RASHEED S 799.02 Hypoxemia 10/25/2010 JOSIAH DIE ATTACHER, RASHEED S 780.57 Unspecified Sleep Apnea 10/25/2010 JOSIAH DIE ATTACHER, RASHEED S 780.79 Fatigue 10/25/2010 JOSIAH DIE ATTACHER, RASHEED S 787.91 Diarrhea 10/25/2010 JOSIAH DIE ATTACHER, RASHEED S 788.1 Dysuria 10/25/2010 JOSIAH DIE ATTACHER, RASHEED S 799.02 Hypoxemia 12/20/2010 JOSIAH DIE ATTACHER, RASHEED S 719.46 joint pain, localized in the knee 12/20/2010 719.46 joint pain, localized in the knee 12/20/2010 JOSIAH DIE ATTACHER, RASHEED S 719.46 joint pain, localized in the knee 12/20/2010 719.46 joint pain, localized in the knee 12/20/2010 719.46 joint pain, localized in the knee 12/20/2010 JOSIAH DIE ATTACHER, RASHEED S 719.46 joint pain, localized in the knee 12/20/2010 JOSIAH DIE ATTACHER, RASHEED S 719.46 joint pain, localized in the knee 12/20/2010 JOSIAH DIE ATTACHER, RASHEED S 719.46 joint pain, localized in the knee 12/20/2010 JOSIAH DIE ATTACHER, RASHEED S 719.46 joint pain, localized in the knee 12/20/2010 JOSIAH DIE ATTACHER, RASHEED S 719.46 joint pain, localized in the knee 12/20/2010 BYRON ESCOTO, AMINA Marr 719.46 joint pain, localized in the knee 12/20/2010 JACK YUAN DO 719.46 joint pain, localized in the knee 12/20/2010 JOSIAH DIE ATTACHER, RASHEED S 719.46 joint pain, localized in the knee 12/20/2010 JOSIAH DIE ATTACHER, RASHEED S 719.46 joint pain, localized in the knee 12/20/2010 LILLYL DIE ATTACHER, NANCY L 719.46 joint pain, localized in the knee 12/20/2010 JOSIAH DIE ATTACHER, RASHEED S 719.46 joint pain, localized in the knee 12/20/2010 JOSIAH DIE ATTACHER, RASHEED S 719.46 joint pain, localized in the knee 12/20/2010 YUAN DO JACK K 719.46 joint pain, localized in the knee 12/20/2010 JOSIAH DIE ATTACHER, RASHEED S 719.46 joint pain, localized in the knee 12/20/2010 JOSIAH DIE ATTACHER, RASHEED S 719.46 joint pain, localized in the knee 12/20/2010 ARIAS GRAJEDA MD 719.46 joint pain, localized in the knee 12/20/2010 JOSIAH DIE ATTACHER, RASHEED S 719.46 joint pain, localized in the knee 12/20/2010 JOSIAH DIE ATTACHER, RASHEED S 719.46 joint pain, localized in the knee 12/20/2010 YUAN DO JACK K 719.46 joint pain, localized in the knee 12/20/2010 JOSIAH DIE ATTACHER, RASHEED S 719.46 joint pain, localized in the knee 12/20/2010 JOSIAH DIE ATTACHER, RASHEED S 719.46 joint pain, localized in the knee 12/20/2010 JOSIAH DIE ATTACHER, RASHEED S 719.46 joint pain, localized in the knee 03/28/2011 JOSIAH LERNER, RASHEED S 401.1 ESSENTIAL HYPERTENSION BENIGN 03/28/2011 JOSIAH DIE ATTACHER, RASHEED S 724.2 LUMBAGO 03/28/2011 JOSIAH LERNER, RASHEED S V04.81 Flu Dx (3 Yrs And Above, Im) 03/28/2011 401.1 ESSENTIAL HYPERTENSION BENIGN 03/28/2011 724.2 LUMBAGO 03/28/2011 V04.81 Flu Dx (3 Yrs And Above, Im) 03/28/2011 JOSIAH LERNER RASHEED S 401.1 ESSENTIAL HYPERTENSION BENIGN 03/28/2011 JOSIAH COVARRUBIASN, RASHEED S 724.2 LUMBAGO 03/28/2011 JOSIAH DIE ATTACHER, RASHEED S V04.81 Flu Dx (3 Yrs And Above, Im) 03/28/2011 401.1 ESSENTIAL HYPERTENSION BENIGN 03/28/2011 724.2 LUMBAGO 03/28/2011 V04.81 Flu Dx (3 Yrs And Above, Im) 03/28/2011 401.1 ESSENTIAL HYPERTENSION BENIGN 03/28/2011 724.2 LUMBAGO 03/28/2011 V04.81 Flu Dx (3 Yrs And Above, Im) 03/28/2011 JOSIAH DIE ATTACHERNAKIARASHEED S 401.1 ESSENTIAL HYPERTENSION BENIGN 03/28/2011 JOSIAH DIE ATTACHER, RASHEED S 724.2 LUMBAGO 03/28/2011 JOSIAH DIE ATTACHER, RASHEED S V04.81 Flu Dx (3 Yrs And Above, Im) 03/28/2011 JOSIAH DIE ATTACHER, RASHEED S 401.1 ESSENTIAL HYPERTENSION BENIGN 03/28/2011 JOSIAH LERNER, RASHEED S 724.2 LUMBAGO 03/28/2011 JOSIAH DIE ATTACHER, RASHEED S V04.81 Flu Dx (3 Yrs And Above, Im) 03/28/2011 JOSIAH COVARRUBIASNNAKIARASHEED S 401.1 ESSENTIAL HYPERTENSION BENIGN 03/28/2011 JOSIAH DIE ATTACHER, RASHEED S 724.2 LUMBAGO 03/28/2011 JOSIAH DIE ATTACHER, RASHEED S V04.81 Flu Dx (3 Yrs And Above, Im) 03/28/2011 NAKIA RAHMAN APRNNDA S 401.1 ESSENTIAL HYPERTENSION BENIGN 03/28/2011 JOSIAH DIE ATTACHER, RASHEED S 724.2 LUMBAGO 03/28/2011 JOSIAH DIE ATTACHER, RASHEED S V04.81 Flu Dx (3 Yrs And Above, Im) 03/28/2011 JOSIAH DIE ATTACHER RASHEED S 401.1 ESSENTIAL HYPERTENSION BENIGN 03/28/2011 JOSIAH DIE ATTACHER, RASHEED S 724.2 LUMBAGO 03/28/2011 JOSIAH DIE ATTACHER, RASHEED S V04.81 Flu Dx (3 Yrs [...] (3 Yrs And Above, Im) 03/28/2011 JOSIAH DIE ATTACHER, RASHEED S 401.1 ESSENTIAL HYPERTENSION BENIGN 03/28/2011 JOSIAH DIE ATTACHER, RASHEED S 724.2 LUMBAGO 03/28/2011 JOSIAH DIE ATTACHER, RASHEED S V04.81 Flu Dx (3 Yrs And Above, Im) 03/28/2011 JOSIAH DIE ATTACHER, RASHEED S 401.1 ESSENTIAL HYPERTENSION BENIGN 03/28/2011 JOSIAH DIE ATTACHER, RASHEED S 724.2 LUMBAGO 03/28/2011 JOSIAH DIE ATTACHER, RASHEED S V04.81 Flu Dx (3 Yrs And Above, Im) 03/28/2011 MADL DIE ATTACHER, NANCY L 401.1 ESSENTIAL HYPERTENSION BENIGN 03/28/2011 MADL DIE ATTACHER, NANCY L 724.2 LUMBAGO 03/28/2011 MADL DIE ATTACHER, NANCY L V04.81 Flu Dx (3 Yrs And Above, Im) 03/28/2011 JOSIAH DIE ATTACHER, RASHEED S 401.1 ESSENTIAL HYPERTENSION BENIGN 03/28/2011 JOSIAH DIE ATTACHER, RASHEED S 724.2 LUMBAGO 03/28/2011 JOSIAH DIE ATTACHER, RASHEED S V04.81 Flu Dx (3 Yrs And Above, Im) 03/28/2011 JOSIAH DIE ATTACHER, RASHEED S 401.1 ESSENTIAL HYPERTENSION BENIGN 03/28/2011 JOSIAH DIE ATTACHER, RASHEED S 724.2 LUMBAGO 03/28/2011 JOSIAH DIE ATTACHER, RASHEED S V04.81 Flu Dx (3 Yrs And Above, Im) 03/28/2011 YUAN DO, JACK K 401.1 ESSENTIAL HYPERTENSION BENIGN 03/28/2011 YUAN DO, JACK K 724.2 LUMBAGO 03/28/2011 YUAN DO, JACK K V04.81 Flu Dx (3 Yrs And Above, Im) 03/28/2011 JOSIAH LERNER RASHEED S 401.1 ESSENTIAL HYPERTENSION BENIGN 03/28/2011 JOSIAH DIE ATTACHER, RASHEED S 724.2 LUMBAGO 03/28/2011 JOSIAH DIE ATTACHER, RASHEED S V04.81 Flu Dx (3 Yrs And Above, Im) 03/28/2011 JOSIAH COVARRUBIASN, RASHEED S 401.1 ESSENTIAL HYPERTENSION BENIGN 03/28/2011 JOSIAH DIE ATTACHER, RASHEED S 724.2 LUMBAGO 03/28/2011 JOSIAH DIE ATTACHER, RASHEED S V04.81 Flu Dx (3 Yrs And Above, Im) 03/28/2011 ARIAS GRAJEDA MD 401.1 ESSENTIAL HYPERTENSION BENIGN 03/28/2011 ARIAS GRAJEDA MD 724.2 LUMBAGO 03/28/2011 ARIAS GRAJEDA MD V04.81 Flu Dx (3 Yrs And Above, Im) 03/28/2011 JOSIAH LERNER RASHEED S 401.1 ESSENTIAL HYPERTENSION BENIGN 03/28/2011 JOSIAH COVARRUBIASN, RASHEED S 724.2 LUMBAGO 03/28/2011 JOSIAH COVARRUBIASN, RASHEED S V04.81 Flu Dx (3 Yrs And Above, Im) 03/28/2011 JOSIAH LERNER, RASHEED S 401.1 ESSENTIAL HYPERTENSION BENIGN 03/28/2011 JOSIAH LERNER, RASHEED S 724.2 LUMBAGO 03/28/2011 JOSIAH COVARRUBIASN, RASHEED S V04.81 Flu Dx (3 Yrs And Above, Im) 03/28/2011 YUAN DO, JACK K 401.1 ESSENTIAL HYPERTENSION BENIGN 03/28/2011 YUAN DO, JACK K 724.2 LUMBAGO 03/28/2011 YUAN DO, JACK K V04.81 Flu Dx (3 Yrs And Above, Im) 03/28/2011 JOSIAH LERNER, RASHEED S 401.1 ESSENTIAL HYPERTENSION BENIGN 03/28/2011 JOSIAH COVARRUBIASN, RASHEED S 724.2 LUMBAGO 03/28/2011 JOSIAH LERNER RASHEED S V04.81 Flu Dx (3 Yrs And Above, Im) 03/28/2011 JOSIAH COVARRUBIASN, RASHEED S 401.1 ESSENTIAL HYPERTENSION BENIGN 03/28/2011 JOSIHA DIE ATTACHER, RASHEED S 724.2 LUMBAGO 03/28/2011 JOSIAH DIE ATTACHER, RASHEED S V04.81 Flu Dx (3 Yrs And Above, Im) 03/28/2011 JOSIAH DIE ATTACHER, RASHEED S 401.1 ESSENTIAL HYPERTENSION BENIGN 03/28/2011 JOSIAH DIE ATTACHER, RASHEED S 724.2 LUMBAGO 03/28/2011 JOSIAH DIE ATTACHER, RASHEED S V04.81 Flu Dx (3 Yrs And Above, Im) 07/20/2011 JOSIAH DIE ATTACHER, RASHEED S 786.05 SHORTNESS OF BREATH 07/20/2011 786.05 SHORTNESS OF BREATH 07/20/2011 JOSIAH COVARRUBIASN, RASHEED S 786.05 SHORTNESS OF BREATH 07/20/2011 786.05 SHORTNESS OF BREATH 07/20/2011 786.05 SHORTNESS OF BREATH 07/20/2011 JOSIAH COVARRUBIASN, RASHEED S 786.05 SHORTNESS OF BREATH 07/20/2011 JOSIAH DIE ATTACHER, RASHEED S 786.05 SHORTNESS OF BREATH 07/20/2011 JOSIAH LERNER, RASHEED S 786.05 SHORTNESS OF BREATH 07/20/2011 JOSIAH DIE ATTACHER, RASHEED S 786.05 SHORTNESS OF BREATH 07/20/2011 JOSIAH DIE ATTACHER, RASHEED S 786.05 SHORTNESS OF BREATH 07/20/2011 BYRON ESCOTO, AMINA Marr 786.05 SHORTNESS OF BREATH 07/20/2011 JACK YUAN DO 786.05 SHORTNESS OF BREATH 07/20/2011 JOSIAH COVARRUBIASN, RASHEED S 786.05 SHORTNESS OF BREATH 07/20/2011 JOSIAH LERNER, RASHEED S 786.05 SHORTNESS OF BREATH 07/20/2011 NANCY ANAYA APRN 786.05 SHORTNESS OF BREATH 07/20/2011 JOSIAH DIE ATTACHER, RASHEED S 786.05 SHORTNESS OF BREATH 07/20/2011 JOSAIH LERNER RASHEED S 786.05 SHORTNESS OF BREATH 07/20/2011 YUAN DO, JACK K 786.05 SHORTNESS OF BREATH 07/20/2011 JOSIAH LERNER, RASHEED S 786.05 SHORTNESS OF BREATH 07/20/2011 NICOLA RAHMAN APRNA S 786.05 SHORTNESS OF BREATH 07/20/2011 NICCI ESCOTO, ARIAS 786.05 SHORTNESS OF BREATH 07/20/2011 RASHEED RAHMAN APRN S 786.05 SHORTNESS OF BREATH 07/20/2011 NICOLA RAHMAN APRNA S 786.05 SHORTNESS OF BREATH 07/20/2011 JACK YUAN DO 786.05 SHORTNESS OF BREATH 07/20/2011 JOSIAH LERNER, RASHEED S 786.05 SHORTNESS OF BREATH 07/20/2011 RASHEED [...] NICOLA RAHMAN APRNA S 780.4 dizziness 08/24/2011 NIOCLA RAHMAN APRNA S 788.33 URGE AND STRESS INCONTINENCE 08/24/2011 041.12 MRSA, METHICILLIN RESISTANT 08/24/2011 780.4 dizziness 08/24/2011 788.33 URGE AND STRESS INCONTINENCE 08/24/2011 NICOLA RAHMAN APRNA S 041.12 MRSA, METHICILLIN RESISTANT 08/24/2011 JOSIAH DIE ATTACHER, RASHEED S 780.4 dizziness 08/24/2011 JOSIAH DIE ATTACHER, RASHEED S 788.33 URGE AND STRESS INCONTINENCE 08/24/2011 041.12 MRSA, METHICILLIN RESISTANT 08/24/2011 780.4 dizziness 08/24/2011 788.33 URGE AND STRESS INCONTINENCE 08/24/2011 041.12 MRSA, METHICILLIN RESISTANT 08/24/2011 780.4 dizziness 08/24/2011 788.33 URGE AND STRESS INCONTINENCE 08/24/2011 JOSIAH DIE ATTACHER, RASHEED S 041.12 MRSA, METHICILLIN RESISTANT 08/24/2011 JOSIAH DIE ATTACHER, RASHEED S 780.4 dizziness 08/24/2011 JOSIAH DIE ATTACHER, RASHEED S 788.33 URGE AND STRESS INCONTINENCE 08/24/2011 JOSIAH DIE ATTACHER, RASHEED S 041.12 MRSA, METHICILLIN RESISTANT 08/24/2011 JOSIAH DIE ATTACHER, RASHEED S 780.4 dizziness 08/24/2011 JOSIAH DIE ATTACHER, RASHEED S 788.33 URGE AND STRESS INCONTINENCE 08/24/2011 JOSIAH DIE ATTACHER, RASHEED S 041.12 MRSA, METHICILLIN RESISTANT 08/24/2011 JOSIAH DIE ATTACHER, RASHEED S 780.4 dizziness 08/24/2011 JOSIAH DIE ATTACHER, RASHEED S 788.33 URGE AND STRESS INCONTINENCE 08/24/2011 JOSIAH DIE ATTACHER, RASHEED S 041.12 MRSA, METHICILLIN RESISTANT 08/24/2011 JOSIAH DIE ATTACHER, RASHEED S 780.4 dizziness 08/24/2011 JOSIAH DIE ATTACHER, RASHEED S 788.33 URGE AND STRESS INCONTINENCE 08/24/2011 JOSIAH DIE ATTACHER, RASHEED S 041.12 MRSA, METHICILLIN RESISTANT 08/24/2011 JOSIAH DIE ATTACHER, RASHEED S 780.4 dizziness 08/24/2011 JOSIAH DIE ATTACHER, RASHEED S 788.33 URGE AND STRESS INCONTINENCE 08/24/2011 AMINA MATTHEWS MD 041.12 MRSA, METHICILLIN RESISTANT 08/24/2011 AMINA MATTHEWS MD 780.4 dizziness 08/24/2011 AMINA MATTHEWS MD 788.33 URGE AND STRESS INCONTINENCE 08/24/2011 YUAN DO, JACK K 041.12 MRSA, METHICILLIN RESISTANT 08/24/2011 YUAN DO, JACK K 780.4 dizziness 08/24/2011 YUAN DO, JAKC K 788.33 URGE AND STRESS INCONTINENCE 08/24/2011 JOSIAH DIE ATTACHER, RASHEED S 041.12 MRSA, METHICILLIN RESISTANT 08/24/2011 JOSIAH DIE ATTACHER, RASHEED S 780.4 DIZZINESS 08/24/2011 JOSIAH DIE ATTACHER, RASHEED S 788.33 URGE AND STRESS INCONTINENCE 08/24/2011 JOSIAH DIE ATTACHER, RASHEED S 041.12 MRSA, METHICILLIN RESISTANT 08/24/2011 JOSIAH DIE ATTACHER, RASHEED S 780.4 DIZZINESS 08/24/2011 JOSIAH DIE ATTACHER, RASHEED S 788.33 URGE AND STRESS INCONTINENCE 08/24/2011 MADL DIE ATTACHER, NANCY L 041.12 MRSA, METHICILLIN RESISTANT 08/24/2011 MADL DIE ATTACHER, NANCY L 780.4 DIZZINESS 08/24/2011 MADL DIE ATTACHER, NANCY L 788.33 URGE AND STRESS INCONTINENCE 08/24/2011 JOSIAH DIE ATTACHER, RASHEED S 041.12 MRSA, METHICILLIN RESISTANT 08/24/2011 JOSIAH DIE ATTACHER, RASHEED S 780.4 DIZZINESS 08/24/2011 JOSIAH DIE ATTACHER, RASHEED S 788.33 URGE AND STRESS INCONTINENCE 08/24/2011 JOSIAH DIE ATTACHER, RASHEED S 041.12 MRSA, METHICILLIN RESISTANT 08/24/2011 JOSIAH DIE ATTACHER, RASHEED S 780.4 DIZZINESS 08/24/2011 JOSIAH DIE ATTACHER, RASHEED S 788.33 URGE AND STRESS INCONTINENCE 08/24/2011 YUAN DO, JACK K 041.12 MRSA, METHICILLIN RESISTANT 08/24/2011 YUAN DO, JACK K 780.4 DIZZINESS 08/24/2011 YUAN DO, JCAK K 788.33 URGE AND STRESS INCONTINENCE 08/24/2011 JOSIAH DIE ATTACHER, RASHEED S 041.12 MRSA, METHICILLIN RESISTANT 08/24/2011 JOSIAH DIE ATTACHER, RASHEED S 780.4 DIZZINESS 08/24/2011 JOSIAH DIE ATTACHER, RASHEED S 788.33 URGE AND STRESS INCONTINENCE 08/24/2011 JOSIAH DIE ATTACHER, RASHEED S 041.12 MRSA, METHICILLIN RESISTANT 08/24/2011 JOSIAH DIE ATTACHER, RASHEED S 780.4 DIZZINESS 08/24/2011 JOSIAH LERNER, RASHEED S 788.33 URGE AND STRESS INCONTINENCE 08/24/2011 ARIAS GRAJEDA MD 041.12 MRSA, METHICILLIN RESISTANT 08/24/2011 NICCI ESCOTO, ARIAS 780.4 DIZZINESS 08/24/2011 ARIAS GRAJEDA MD 788.33 URGE AND STRESS INCONTINENCE 08/24/2011 JOSIAH LERNER RASHEED S 041.12 MRSA, METHICILLIN RESISTANT 08/24/2011 JOSIAH DIE ATTACHER, RASHEED S 780.4 DIZZINESS 08/24/2011 JOSIAH DIE ATTACHER, RASHEED S 788.33 URGE AND STRESS INCONTINENCE 08/24/2011 JOSIAH DIE ATTACHER, RASHEED S 041.12 MRSA, METHICILLIN RESISTANT 08/24/2011 JOSIAH DIE ATTACHER, RASHEED S 780.4 DIZZINESS 08/24/2011 JOSIAH LERNER, RASHEED S 788.33 URGE AND STRESS INCONTINENCE 08/24/2011 YUAN DO, JACK K 041.12 MRSA, METHICILLIN RESISTANT 08/24/2011 YUAN DO, JACK K 780.4 DIZZINESS 08/24/2011 YUAN DO, JACK K 788.33 URGE AND STRESS INCONTINENCE 08/24/2011 JOSIAH DIE ATTACHER, RASHEED S 041.12 MRSA, METHICILLIN RESISTANT 08/24/2011 JOSIAH DIE ATTACHER, RASHEED S 780.4 DIZZINESS 08/24/2011 JOSIAH DIE ATTACHER, RASHEED S 788.33 URGE AND STRESS INCONTINENCE 08/24/2011 JOSIAH DIE ATTACHER, RASHEED S 041.12 MRSA, METHICILLIN RESISTANT 08/24/2011 JOSIAH DIE ATTACHER, RASHEED S 780.4 DIZZINESS 08/24/2011 JOSIAH DIE ATTACHER, RASHEED S 788.33 URGE AND STRESS INCONTINENCE 08/24/2011 JOSIAH DIE ATTACHER, RASHEED S 041.12 MRSA, METHICILLIN RESISTANT 08/24/2011 JOSIAH DIE ATTACHER, RASHEED S 780.4 DIZZINESS 08/24/2011 JOSIAH DIE ATTACHER, RASHEED S 788.33 URGE AND STRESS INCONTINENCE [...] Ot V57.1 PHYSICAL THERAPY NEC 04/02/2012 JOSIAH LERNER RASHEED S 079.99 VIRAL SYNDROME 04/02/2012 NAKIA RAHMAN APRNNDA S 466.0 BRONCHITIS, ACUTE 04/02/2012 079.99 VIRAL SYNDROME 04/02/2012 466.0 BRONCHITIS, ACUTE 04/02/2012 JOSIAH LERNER RASHEED S 079.99 VIRAL SYNDROME 04/02/2012 JOSIAH LERNER RASHEED S 466.0 BRONCHITIS, ACUTE 04/02/2012 079.99 VIRAL SYNDROME 04/02/2012 466.0 BRONCHITIS, ACUTE 04/02/2012 079.99 VIRAL SYNDROME 04/02/2012 466.0 BRONCHITIS, ACUTE 04/02/2012 JOSIAH LERNER RASHEED S 079.99 VIRAL SYNDROME 04/02/2012 JOSIAH LERNER RASHEED S 466.0 BRONCHITIS, ACUTE 04/02/2012 JOSIAH LERNER RASHEED S 079.99 VIRAL SYNDROME 04/02/2012 JOSIAH LERNER RASHEED S 466.0 BRONCHITIS, ACUTE 04/02/2012 JOSIAH LERNER RASHEED S 079.99 VIRAL SYNDROME 04/02/2012 JOSIAH LERNER RASHEED S 466.0 BRONCHITIS, ACUTE 04/02/2012 JOSIAH LERNER RASHEED S 079.99 VIRAL SYNDROME 04/02/2012 JOSIAH LERNER RASHEED S 466.0 BRONCHITIS, ACUTE 04/02/2012 JOSIAH LERNER RASHEED S 079.99 VIRAL SYNDROME 04/02/2012 JOSIAH LERNER RASHEED S 466.0 BRONCHITIS, ACUTE 04/02/2012 BYRON ESCOTO, AMINA Marr 079.99 VIRAL SYNDROME 04/02/2012 BYRON ESCOTO, AMINA Marr 466.0 BRONCHITIS, ACUTE 04/02/2012 YUAN DO, JACK K 079.99 VIRAL SYNDROME 04/02/2012 YUAN DO, JACK K 466.0 BRONCHITIS, ACUTE 04/02/2012 JOSIAH DIE ATTACHER, RASHEED S 079.99 VIRAL SYNDROME 04/02/2012 JOSIAH DIE ATTACHER, RASHEED S 466.0 BRONCHITIS, ACUTE 04/02/2012 JOSIAH DIE ATTACHER, RASHEED S 079.99 VIRAL SYNDROME 04/02/2012 JOSIAH DIE ATTACHER, RASHEED S 466.0 BRONCHITIS, ACUTE 04/02/2012 MADL DIE ATTACHER, NANCY L 079.99 VIRAL SYNDROME 04/02/2012 MADL DIE ATTACHER, NANCY L 466.0 BRONCHITIS, ACUTE 04/02/2012 JOSIAH DIE ATTACHER, RASHEED S 079.99 VIRAL SYNDROME 04/02/2012 JOSIAH DIE ATTACHER, RASHEED S 466.0 BRONCHITIS, ACUTE 04/02/2012 JOSIAH DIE ATTACHER, RASHEED S 079.99 VIRAL SYNDROME 04/02/2012 JOSIAH DIE ATTACHER, RASHEED S 466.0 BRONCHITIS, ACUTE 04/02/2012 YUAN DO, JACK K 079.99 VIRAL SYNDROME 04/02/2012 YUAN DO, JACK K 466.0 BRONCHITIS, ACUTE 04/02/2012 JOSIAH DIE ATTACHER, RASHEED S 079.99 VIRAL SYNDROME 04/02/2012 JOSIAH DIE ATTACHER, RASHEED S 466.0 BRONCHITIS, ACUTE 04/02/2012 JOSIAH DIE ATTACHER, RASHEED S 079.99 VIRAL SYNDROME 04/02/2012 JOSIAH DIE ATTACHER, RASHEED S 466.0 BRONCHITIS, ACUTE 04/02/2012 NICCI ESCOTO, ARIAS 079.99 VIRAL SYNDROME 04/02/2012 ARIAS GRAJEDA MD 466.0 BRONCHITIS, ACUTE 04/02/2012 JOSIAH DIE ATTACHER, RASHEED S 079.99 VIRAL SYNDROME 04/02/2012 JOSIAH DIE ATTACHER, RASHEED S 466.0 BRONCHITIS, ACUTE 04/02/2012 JOSIAH DIE ATTACHER, RASHEED S 079.99 VIRAL SYNDROME 04/02/2012 JOSIAH DIE ATTACHER, RASHEED S 466.0 BRONCHITIS, ACUTE 04/02/2012 YUAN DOINDERA K 079.99 VIRAL SYNDROME 04/02/2012 YUAN DOINDERA K 466.0 BRONCHITIS, ACUTE 04/02/2012 JOSIAH DIE ATTACHER, RASHEED S 079.99 VIRAL SYNDROME 04/02/2012 JOSIAH DIE ATTACHER, RASHEED S 466.0 BRONCHITIS, ACUTE 04/02/2012 JOSIAH DIE ATTACHER, RASHEED S 079.99 VIRAL SYNDROME 04/02/2012 JOSIAH DIE ATTACHER, RASHEED S 466.0 BRONCHITIS, ACUTE 04/02/2012 JOSIAH DIE ATTACHER, RASHEED S 079.99 VIRAL SYNDROME 04/02/2012 JOSIAH DIE ATTACHER, RASHEED S 466.0 BRONCHITIS, ACUTE 01/07/2013 V07.4 HORMONE REPLACEMENT THERAPY (POSTMENOPAUSAL) 01/07/2013 OJSIAH LERNER RASHEED S V07.4 HORMONE REPLACEMENT THERAPY (POSTMENOPAUSAL) 01/07/2013 JOSIAH LERNER RASHEED S V07.4 HORMONE REPLACEMENT THERAPY (POSTMENOPAUSAL) 01/07/2013 JOSIAH LERNER RASHEED S V07.4 HORMONE REPLACEMENT THERAPY (POSTMENOPAUSAL) 01/07/2013 JOSIAH LERNER RASHEED S V07.4 HORMONE REPLACEMENT THERAPY (POSTMENOPAUSAL) 01/07/2013 JOSIAH LERNER RASHEED S V07.4 HORMONE REPLACEMENT THERAPY (POSTMENOPAUSAL) 01/07/2013 AMINA MATTHEWS MD V07.4 HORMONE REPLACEMENT THERAPY (POSTMENOPAUSAL) 01/07/2013 JACK YUAN DO K V07.4 HORMONE REPLACEMENT THERAPY (POSTMENOPAUSAL) 01/07/2013 JOSIAH LERNER RASHEED S V07.4 HORMONE REPLACEMENT THERAPY (POSTMENOPAUSAL) 01/07/2013 JOSIAH LERNER RASHEED S V07.4 HORMONE REPLACEMENT THERAPY (POSTMENOPAUSAL) 01/07/2013 NANCY ANAYA APRN V07.4 HORMONE REPLACEMENT THERAPY (POSTMENOPAUSAL) 01/07/2013 JOSIAH LERNER RASHEED S V07.4 HORMONE REPLACEMENT THERAPY (POSTMENOPAUSAL) 01/07/2013 JOSIAH LERNER RASHEED S V07.4 HORMONE REPLACEMENT THERAPY (POSTMENOPAUSAL) 01/07/2013 JACK YUAN DO K V07.4 HORMONE REPLACEMENT THERAPY (POSTMENOPAUSAL) 01/07/2013 JOSIAH DIE ATTACHER, RASHEED S V07.4 HORMONE REPLACEMENT THERAPY (POSTMENOPAUSAL) 01/07/2013 JOSIAH LERNER, RASHEED S V07.4 HORMONE REPLACEMENT THERAPY (POSTMENOPAUSAL) 01/07/2013 ARIAS GRAJEDA MD V07.4 HORMONE REPLACEMENT THERAPY (POSTMENOPAUSAL) 01/07/2013 JOSIAH DIE ATTACHER, RASHEED S V07.4 HORMONE REPLACEMENT THERAPY (POSTMENOPAUSAL) 01/07/2013 JOSIAH LERNER, RASHEED S V07.4 HORMONE REPLACEMENT THERAPY (POSTMENOPAUSAL) 01/07/2013 JACK YUAN DO V07.4 HORMONE REPLACEMENT THERAPY (POSTMENOPAUSAL) 01/07/2013 JOSIAH DIE ATTACHER, RASHEED S V07.4 HORMONE REPLACEMENT THERAPY (POSTMENOPAUSAL) 01/07/2013 JOSIAH LERNER, RASHEED S V07.4 HORMONE REPLACEMENT THERAPY (POSTMENOPAUSAL) 01/07/2013 JOSIAH DIE ATTACHER, RASHEED S V07.4 HORMONE REPLACEMENT THERAPY (POSTMENOPAUSAL) 06/02/2013 JOSIAH LERNER, RASHEED S 696.1 PSORIASIS 06/02/2013 JOSIAH LERNER, RASHEED S V73.81 HPV SCREENING 06/02/2013 JOSIAH DIE ATTACHER, RASHEED S V76.10 BREAST CANCER SCREENING 06/02/2013 JOSIAH DIE ATTACHER, RASHEED S V76.2 CERVICAL CANCER SCREENING (PAP SMEAR) 06/02/2013 JOSIAH DIE ATTACHER, RASHEED S 696.1 PSORIASIS 06/02/2013 JOSIAH DIE ATTACHER, RASHEED S V73.81 HPV SCREENING 06/02/2013 JOSIAH LERNER, RASHEED S V76.10 BREAST CANCER SCREENING 06/02/2013 JOSIAH DIE ATTACHER, RASHEED S V76.2 CERVICAL CANCER SCREENING (PAP SMEAR) 06/02/2013 JOSIAH DIE ATTACHER, RASHEED S 696.1 PSORIASIS 06/02/2013 JOSIAH LERNER, RASHEED S V73.81 HPV SCREENING 06/02/2013 JOSIAH DIE ATTACHER, RASHEED S V76.10 BREAST CANCER SCREENING 06/02/2013 JOSIAH LERNER, RASHEED S V76.2 CERVICAL CANCER SCREENING (PAP SMEAR) 06/02/2013 AMINA MATTHEWS MD 696.1 PSORIASIS 06/02/2013 AMINA MATTHEWS MD V73.81 HPV SCREENING 06/02/2013 AMINA MATTHEWS MD V76.10 BREAST CANCER SCREENING 06/02/2013 AMINA MATTHEWS MD V76.2 CERVICAL CANCER SCREENING (PAP SMEAR) 06/02/2013 YUAN , JACK K 696.1 PSORIASIS 06/02/2013 YUAN , JACK K V73.81 HPV SCREENING 06/02/2013 YUAN JACK K V76.10 BREAST CANCER SCREENING 06/02/2013 YUAN DO, JACK K V76.2 CERVICAL CANCER SCREENING (PAP SMEAR) 06/02/2013 OJSIAH LERNER RASHEED S 696.1 PSORIASIS 06/02/2013 JOSIAH LERNER RASHEED S V73.81 HPV SCREENING 06/02/2013 JOSIAH LERNER RASHEED S V76.10 BREAST CANCER SCREENING 06/02/2013 JOSIAH DIE ATTACHER, RASHEED S V76.2 CERVICAL CANCER SCREENING (PAP SMEAR) 06/02/2013 JOSIAH LERNER RASHEED S 696.1 PSORIASIS 06/02/2013 JOSIAH LERNER RASHEED S V73.81 HPV SCREENING 06/02/2013 JOSIAH LERNER RASHEED S V76.10 BREAST CANCER SCREENING 06/02/2013 JOSIAH LERNER RASHEED S V76.2 CERVICAL CANCER SCREENING (PAP SMEAR) 06/02/2013 JACLYN LERNER, NANCY L 696.1 PSORIASIS 06/02/2013 MADL DIE ATTACHER, NANCY L V73.81 HPV SCREENING 06/02/2013 MADL DIE ATTACHER, NANCY L V76.10 BREAST CANCER SCREENING 06/02/2013 MADL DIE ATTACHER, NANCY L V76.2 CERVICAL CANCER SCREENING (PAP [...] S V76.10 BREAST CANCER SCREENING 06/02/2013 JOSIAH DIE ATTACHER, RASHEED S V76.2 CERVICAL CANCER SCREENING (PAP SMEAR) 06/02/2013 YUAN DO, JACK K 696.1 PSORIASIS 06/02/2013 YUAN DO, JACK K V73.81 HPV SCREENING 06/02/2013 YUAN DO, JACK K V76.10 BREAST CANCER SCREENING 06/02/2013 YUAN DO, JACK K V76.2 CERVICAL CANCER SCREENING (PAP SMEAR) 06/02/2013 JOSIAH LERNER RASHEED S 696.1 PSORIASIS 06/02/2013 JOSIAH DIE ATTACHER, RASHEED S V73.81 HPV SCREENING 06/02/2013 JOSIAH LERNER RASHEED S V76.10 BREAST CANCER SCREENING 06/02/2013 JOSIAH LERNER RASHEED S V76.2 CERVICAL CANCER SCREENING (PAP SMEAR) 06/02/2013 JOSIAH LERNER RASHEED S 696.1 PSORIASIS 06/02/2013 JOSIAH LERNER RASHEED S V73.81 HPV SCREENING 06/02/2013 NAKIA RAHMAN APRNNDA S V76.10 BREAST CANCER SCREENING 06/02/2013 JOSIAH [...] CERVICAL CANCER SCREENING (PAP SMEAR) 06/02/2013 JOSIAH DIE ATTACHER, RASHEED S 696.1 PSORIASIS 06/02/2013 JOSIAH LERNER, RASHEED S V73.81 HPV SCREENING 06/02/2013 JOSIAH LERNER RASHEED S V76.10 BREAST CANCER SCREENING 06/02/2013 JOSIAH DIE ATTACHER, RASHEED S V76.2 CERVICAL CANCER SCREENING (PAP SMEAR) 06/02/2013 YUAN DO, JACK K 696.1 PSORIASIS 06/02/2013 YUAN DO, JACK K V73.81 HPV SCREENING 06/02/2013 YUAN DO, JACK K V76.10 BREAST CANCER SCREENING 06/02/2013 YUAN DO, JACK K V76.2 CERVICAL CANCER SCREENING (PAP SMEAR) 06/02/2013 JOSIAH LERNER RASHEED S 696.1 PSORIASIS 06/02/2013 JOSIAH DIE ATTACHER, RASHEED S V73.81 HPV SCREENING 06/02/2013 JOSIAH LERNER RASHEED S V76.10 BREAST CANCER SCREENING 06/02/2013 NAKIA RAHMAN APRNNDA S V76.2 CERVICAL CANCER SCREENING (PAP SMEAR) 06/02/2013 JOSIAH LERNER RASHEED S 696.1 PSORIASIS 06/02/2013 JOSIAH LERNER, RASHEED S V73.81 HPV SCREENING 06/02/2013 JOSIAH LERNER RASHEED S V76.10 BREAST CANCER SCREENING 06/02/2013 JOSIAH DIE ATTACHER, RASHEED S V76.2 CERVICAL CANCER SCREENING (PAP SMEAR) 06/02/2013 JOSIAH LERNER RASHEED S 696.1 PSORIASIS 06/02/2013 JOSIAH LERNER RASHEED S V73.81 HPV SCREENING 06/02/2013 JOSIAH LERNER RASHEED S V76.10 BREAST CANCER SCREENING 06/02/2013 JOSIAH DIE ATTACHER, RASHEED S V76.2 CERVICAL CANCER SCREENING (PAP SMEAR) 07/03/2013 NAKIA RAHMAN APRNNDA S 682.6 CELLULITIS AND ABSCESS OF LEG EXCEPT FOOT 07/03/2013 BYRON ESCOTO, AMINA Marr 682.6 CELLULITIS AND ABSCESS OF LEG EXCEPT FOOT 07/03/2013 YUAN INDER HDEZA K 682.6 CELLULITIS AND ABSCESS OF LEG EXCEPT FOOT 07/03/2013 JOSIAH DIE ATTACHER, RASHEED S 682.6 CELLULITIS AND ABSCESS OF LEG EXCEPT FOOT 07/03/2013 JOSIAH DIE ATTACHER, RASHEED S 682.6 CELLULITIS AND ABSCESS OF LEG EXCEPT FOOT 07/03/2013 MADL DIE ATTACHERNANCY Lockwood L 682.6 CELLULITIS AND ABSCESS OF LEG EXCEPT FOOT 07/03/2013 JOSIAH DIE ATTACHER, RASHEED S 682.6 CELLULITIS AND ABSCESS OF LEG EXCEPT FOOT 07/03/2013 JOSIAH DIE ATTACHER, RASHEED S 682.6 CELLULITIS AND ABSCESS OF LEG EXCEPT FOOT 07/03/2013 JACK YUAN DO K 682.6 CELLULITIS AND ABSCESS OF LEG EXCEPT FOOT 07/03/2013 JOSIAH DIE ATTACHER, RASHEED S 682.6 CELLULITIS AND ABSCESS OF LEG EXCEPT FOOT 07/03/2013 JOSIAH DIE ATTACHER, RASHEED S 682.6 CELLULITIS AND ABSCESS OF LEG EXCEPT FOOT 07/03/2013 NICCI ESCOTO, ARIAS 682.6 CELLULITIS AND ABSCESS OF LEG EXCEPT FOOT 07/03/2013 JOSIAH DIE ATTACHER, RASHEED S 682.6 CELLULITIS AND ABSCESS OF LEG EXCEPT FOOT 07/03/2013 JOSIAH DIE ATTACHER, RASHEED S 682.6 CELLULITIS AND ABSCESS OF LEG EXCEPT FOOT 07/03/2013 JACK YUAN DO K 682.6 CELLULITIS AND ABSCESS OF LEG EXCEPT FOOT 07/03/2013 JOSIAH DIE ATTACHER, RASHEED S 682.6 CELLULITIS AND ABSCESS OF LEG EXCEPT FOOT 07/03/2013 JOSIAH DIE ATTACHER, RASHEED S 682.6 CELLULITIS AND ABSCESS OF LEG EXCEPT FOOT 07/03/2013 JOSIAH DIE ATTACHER, RASHEED S 682.6 CELLULITIS AND ABSCESS OF LEG EXCEPT FOOT 08/15/2013 BYRON ESCOTO, AMINA Marr 461.9 SINUSITIS ACUTE 08/15/2013 JACK YUAN DO K 461.9 SINUSITIS ACUTE 08/15/2013 JOSIAH DIE ATTACHER, RASHEED S 461.9 SINUSITIS ACUTE 08/15/2013 JOSIAH DIE ATTACHER, RASHEED S 461.9 SINUSITIS ACUTE 08/15/2013 JACLYN DIE ATTACHERNANCY Lockwood L 461.9 SINUSITIS ACUTE 08/15/2013 JOSIAH DIE ATTACHER, RASHEED S 461.9 SINUSITIS ACUTE 08/15/2013 JOSIAH DIE ATTACHER, RASHEED S 461.9 SINUSITIS ACUTE 08/15/2013 INDRE YUAN DOA K 461.9 SINUSITIS ACUTE 08/15/2013 JOSIAH DIE ATTACHER, RASHEED S 461.9 SINUSITIS ACUTE 08/15/2013 JOSIAH DIE ATTACHER, RASHEED S 461.9 SINUSITIS ACUTE 08/15/2013 ARIAS GRAJEDA MD 461.9 SINUSITIS ACUTE 08/15/2013 JOSIAH DIE ATTACHER, RASHEED S 461.9 SINUSITIS ACUTE 08/15/2013 JOSIAH DIE ATTACHER, RASHEED S 461.9 SINUSITIS ACUTE 08/15/2013 JACK YUAN DO K 461.9 SINUSITIS ACUTE 08/15/2013 JOSIAH DIE ATTACHER, RASHEED S 461.9 SINUSITIS ACUTE 08/15/2013 JOSIAH DIE ATTACHER, RASHEED S 461.9 SINUSITIS ACUTE 08/15/2013 JOSIAH DIE ATTACHER, RASHEED S 461.9 SINUSITIS ACUTE 09/04/2013 INDER YUAN DOA K 733.92 CHONDROMALACIA 09/04/2013 JOSIAH DIE ATTACHER, RASHEED S 733.92 CHONDROMALACIA 09/04/2013 JOSIAH DIE ATTACHER, RASHEED S 733.92 CHONDROMALACIA 09/04/2013 JACLYN LERNER, NANCY L 733.92 CHONDROMALACIA 09/04/2013 JOSIAH DIE ATTACHER, RASHEED S 733.92 CHONDROMALACIA 09/04/2013 JOSIAH DIE ATTACHER, RASHEED S 733.92 CHONDROMALACIA 09/04/2013 KWABENA HDEZ JACK K 733.92 CHONDROMALACIA 09/04/2013 JOSIAH DIE ATTACHER, RASHEED S 733.92 CHONDROMALACIA 09/04/2013 JOSIAH DIE ATTACHER, RASHEED S 733.92 CHONDROMALACIA 09/04/2013 ARIAS GRAJEDA MD 733.92 CHONDROMALACIA 09/04/2013 JOSIAH DIE ATTACHER, RASHEED S 733.92 CHONDROMALACIA 09/04/2013 JOSIAH DIE ATTACHER, RASHEED S 733.92 CHONDROMALACIA 09/04/2013 YUAN DO, JACK K 733.92 CHONDROMALACIA 09/04/2013 JOSIAH DIE ATTACHER, RASHEED S 733.92 CHONDROMALACIA 09/04/2013 JOSIAH DIE ATTACHER, RASHEED S 733.92 CHONDROMALACIA 09/04/2013 JOSIAH DIE ATTACHER, RASHEED S 733.92 CHONDROMALACIA 09/11/2013 JOSIAH DIE ATTACHER, RASHEED S 477.0 ALLERGIC RHINITIS DUE TO POLLEN 09/11/2013 JOSIAH DIE ATTACHER, RASHEED S 477.0 ALLERGIC RHINITIS DUE TO POLLEN 09/11/2013 MADL DIE ATTACHERKARINA LockwoodNYA L 477.0 ALLERGIC RHINITIS DUE TO POLLEN 09/11/2013 JOSIAH DIE ATTACHER, RASHEED S 477.0 ALLERGIC RHINITIS DUE TO POLLEN 09/11/2013 JOSIAH DIE ATTACHER, RASHEED S 477.0 ALLERGIC RHINITIS DUE TO POLLEN 09/11/2013 YUAN DO, JACK K 477.0 ALLERGIC RHINITIS DUE TO POLLEN 09/11/2013 JOSIAH DIE ATTACHER, RASHEED S 477.0 ALLERGIC RHINITIS DUE TO POLLEN 09/11/2013 JOSIAH DIE ATTACHER, RASHEED S 477.0 ALLERGIC RHINITIS DUE TO POLLEN 09/11/2013 ARIAS GRAJEDA MD 477.0 ALLERGIC RHINITIS DUE TO POLLEN 09/11/2013 JOSIAH DIE ATTACHER, RASHEED S 477.0 ALLERGIC RHINITIS DUE TO POLLEN 09/11/2013 JOSIAH DIE ATTACHER, RASHEED S 477.0 ALLERGIC RHINITIS DUE TO POLLEN 09/11/2013 YUAN DO, JACK K 477.0 ALLERGIC RHINITIS DUE TO POLLEN 09/11/2013 JOSIAH DIE ATTACHER, RASHEED S 477.0 ALLERGIC RHINITIS DUE TO POLLEN 09/11/2013 JOSIAH DIE ATTACHER, RASHEED S 477.0 ALLERGIC RHINITIS DUE TO POLLEN 09/11/2013 JOSIAH DIE ATTACHER, RASHEED S 477.0 ALLERGIC RHINITIS DUE TO POLLEN 10/31/2013 DINO TILLMAN LOCOMOTIVE PIPE FITTER Ot 715.36 LOC OSTEOARTH NOS-L/LEG 10/31/2013 DINO TILLMAN LOCOMOTIVE PIPE FITTER Ot 729.89 MUSCSKEL SYMPT LIMB NEC 10/31/2013 DINO TILLMAN LOCOMOTIVE PIPE FITTER Ot 733.92 CHONDROMALACIA 10/31/2013 DINO TILLMAN LOCOMOTIVE PIPE FITTER Ot V43.65 KNEE JOINT REPLACEMENT STATUS 10/31/2013 DINO TILLMAN LOCOMOTIVE PIPE FITTER Ot V54.81 AFTERCARE FOLLOWING JOINT REPLACEMENT 10/31/2013 DINO TILLMAN LOCOMOTIVE PIPE FITTER Ot V57.1 PHYSICAL THERAPY NEC 11/17/2013 MADL DIE ATTACHER, NANCY L 578.1 BLOOD IN STOOL 11/17/2013 MADL DIE ATTACHER, NANCY L 789.06 ABDOMINAL PAIN EPIGASTRIC 11/17/2013 JOSIAH DIE ATTACHER, RASHEED S 578.1 BLOOD IN STOOL 11/17/2013 JOSIAH DIE ATTACHER, RASHEED S 789.06 ABDOMINAL PAIN EPIGASTRIC 11/17/2013 JOSIAH DIE ATTACHER, RASHEED S 578.1 BLOOD IN STOOL 11/17/2013 JOSIAH DIE ATTACHER, RASHEED S 789.06 ABDOMINAL PAIN EPIGASTRIC 11/17/2013 YUAN DO, JACK K 578.1 BLOOD IN STOOL 11/17/2013 YUAN DO, JACK K 789.06 ABDOMINAL PAIN EPIGASTRIC 11/17/2013 JOSIAH DIE ATTACHER, RASHEED S 578.1 BLOOD IN STOOL 11/17/2013 JOSIAH DIE ATTACHER, RASHEED S 789.06 ABDOMINAL PAIN EPIGASTRIC 11/17/2013 JOSIAH DIE ATTACHER, RASHEED S 578.1 BLOOD IN STOOL 11/17/2013 JOSIAH DIE ATTACHER, RASHEED S 789.06 ABDOMINAL PAIN EPIGASTRIC 11/17/2013 ARIAS GRAJEDA MD 578.1 BLOOD IN STOOL 11/17/2013 ARIAS GRAJEAD MD 789.06 ABDOMINAL PAIN EPIGASTRIC 11/17/2013 JOSIAH DIE ATTACHER, RASHEED S 578.1 BLOOD IN STOOL 11/17/2013 JOSIAH DIE ATTACHER, RASHEED S 789.06 ABDOMINAL PAIN EPIGASTRIC 11/17/2013 JOSIAH DIE ATTACHER, RASHEED S 578.1 BLOOD IN STOOL 11/17/2013 JOSIAH DIE ATTACHER, RASHEED S 789.06 ABDOMINAL PAIN EPIGASTRIC 11/17/2013 YUAN DO, JACK K 578.1 BLOOD IN STOOL 11/17/2013 YUAN DO, JACK K 789.06 ABDOMINAL PAIN EPIGASTRIC 11/17/2013 JOSIAH DIE ATTACHER, RASHEED S 578.1 BLOOD IN STOOL 11/17/2013 JOSIAH DIE ATTACHER, RASHEED S 789.06 ABDOMINAL PAIN EPIGASTRIC 11/17/2013 JOSIAH DIE ATTACHER, RASHEED S 578.1 BLOOD IN STOOL 11/17/2013 JOSIAH DIE ATTACHER, RASHEED S 789.06 ABDOMINAL PAIN EPIGASTRIC 11/17/2013 JOSIAH DIE ATTACHER, RASHEED S 578.1 BLOOD IN STOOL 11/17/2013 JOSIAH DIE ATTACHER, RASHEED S 789.06 ABDOMINAL PAIN EPIGASTRIC 12/17/2013 JACK YUAN DO K 354.0 CARPAL TUNNEL SYNDROME 12/17/2013 JOSIAH DIE ATTACHER, RASHEED S 354.0 CARPAL TUNNEL SYNDROME 12/17/2013 JOSIAH DIE ATTACHER, RASHEED S 354.0 CARPAL TUNNEL SYNDROME 12/17/2013 ARIAS GRAJEDA MD 354.0 CARPAL TUNNEL SYNDROME 12/17/2013 JOSIAH DIE ATTACHER, RASHEED S 354.0 CARPAL TUNNEL SYNDROME 12/17/2013 JOSIAH DIE ATTACHER, RASHEED S 354.0 CARPAL TUNNEL SYNDROME 12/17/2013 INDER YUAN DOA K 354.0 CARPAL TUNNEL SYNDROME 12/17/2013 JOSIAH DIE ATTACHER, RASHEED S 354.0 CARPAL TUNNEL SYNDROME 12/17/2013 JOSIAH DIE ATTACHER, RASHEED S 354.0 CARPAL TUNNEL SYNDROME 12/17/2013 JOSIAH DIE ATTACHER, RASHEED S 354.0 CARPAL TUNNEL SYNDROME 12/18/2013 INDER YUAN DOA K V76.10 BREAST CANCER SCREENING 12/18/2013 JOSIAH COVARRUBIASN, RASHEED S V76.10 BREAST CANCER SCREENING 12/18/2013 JOSIAH DIE ATTACHER, RASHEED S V76.10 BREAST CANCER SCREENING 12/18/2013 ARIAS GRAJEDA MD V76.10 BREAST CANCER SCREENING 12/18/2013 JOSIAH DIE ATTACHER, RASHEED S V76.10 BREAST CANCER SCREENING 12/18/2013 JOSIAH DIE ATTACHER, RASHEED S V76.10 BREAST CANCER SCREENING 12/18/2013 KWABENA HDEZ JACK K V76.10 BREAST CANCER SCREENING 12/18/2013 JOSIAH DIE ATTACHER, RASHEED S V76.10 BREAST CANCER SCREENING 12/18/2013 JOSIAH DIE ATTACHER, RASHEED S V76.10 BREAST CANCER SCREENING 12/18/2013 JOSIAH DIE ATTACHER, RASHEED S V76.10 BREAST CANCER SCREENING 01/05/2014 JOSIAH DIE ATTACHER, RASHEED S 356.9 NEUROPATHY 01/05/2014 JOSIAH DIE ATTACHER, RASHEED S 599.0 URINARY TRACT INFECTION 01/05/2014 JOSIAH DIE ATTACHER, RASHEED S 719.47 PAIN- FOOT 01/05/2014 JOSIAH DIE ATTACHER, RASHEED S 356.9 NEUROPATHY 01/05/2014 JOSIAH DIE ATTACHER, RASHEED S 599.0 URINARY TRACT INFECTION 01/05/2014 JOSIAH DIE ATTACHER, RASHEED S 719.47 PAIN- FOOT 01/05/2014 ARIAS GRAJEDA MD 356.9 NEUROPATHY 01/05/2014 ARIAS GRAJEDA MD 599.0 URINARY TRACT INFECTION 01/05/2014 ARIAS GRAJEDA MD 719.47 PAIN- FOOT 01/05/2014 JOSIAH DIE ATTACHER, RASHEED S 356.9 NEUROPATHY 01/05/2014 JOSIAH DIE ATTACHER, RASHEED S 599.0 URINARY TRACT INFECTION 01/05/2014 JOSIAH DIE ATTACHER, RASHEED S 719.47 PAIN- FOOT 01/05/2014 JOSIAH DIE ATTACHER, RASHEED S 356.9 NEUROPATHY 01/05/2014 JOSIAH DIE ATTACHER, RASHEED S 599.0 URINARY TRACT INFECTION 01/05/2014 JOSIAH DIE ATTACHER, RASHEED S 719.47 PAIN- FOOT 01/05/2014 YUAN DO, JACK K 356.9 NEUROPATHY 01/05/2014 YUAN DO, JACK K 599.0 URINARY TRACT INFECTION 01/05/2014 YUAN DO, JACK K 719.47 PAIN- FOOT 01/05/2014 JOSIAH DIE ATTACHER, RASHEED S 356.9 NEUROPATHY 01/05/2014 JOSIAH DIE ATTACHER, RASHEED S 599.0 URINARY TRACT INFECTION 01/05/2014 JOSIAH DIE ATTACHER, RASHEED S 719.47 PAIN- FOOT 01/05/2014 JOSIAH DIE ATTACHER, RASHEED S 356.9 NEUROPATHY 01/05/2014 JOSIAH DIE ATTACHER, RASHEED S 599.0 URINARY TRACT INFECTION 01/05/2014 JOSIAH DIE ATTACHER, RASHEED S 719.47 PAIN- FOOT 01/05/2014 JOSIAH DIE ATTACHER, RASHEED S 356.9 NEUROPATHY 01/05/2014 JOSIAH DIE ATTACHER, RASHEED S 599.0 URINARY TRACT INFECTION 01/05/2014 JOSIAH DIE ATTACHER, RASHEED S 719.47 PAIN- FOOT 01/30/2014 JAMIE LOVE MD Ot 211.3 BENIGN NEOPLASM LG BOWEL 01/30/2014 JAMIE LOVE MD Ot 455.0 INT HEMORRHOID W/O COMPL 01/30/2014 JAMIE LOVE MD Ot 455.3 EXT HEMORRHOID W/O COMPL 01/30/2014 JAMIE LOVE MD Ot 562.10 DIVERTICULOSIS COLON (W/O MENT OF HEMORR 01/30/2014 JAMIE LOVE MD Ot 564.00 UNSPEC CONSTIPATION 01/30/2014 JAMIE LOVE MD Ot 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 02/02/2014 ARIAS GRAJEDA MD 211.9 POLYP- GI 02/02/2014 ARIAS GRAJEDA MD 455.6 HEMORRHOIDS NOS 02/02/2014 JOSIAH DIE ATTACHER, RASHEED S 211.9 POLYP- GI 02/02/2014 JOSIAH DIE ATTACHER, RASHEED S 455.6 HEMORRHOIDS NOS 02/02/2014 JOSIAH DIE ATTACHER, RASHEED S 211.9 POLYP- GI 02/02/2014 JOSIAH DIE ATTACHER, RASHEED S 455.6 HEMORRHOIDS NOS 02/02/2014 YUAN DO, JACK K 211.9 POLYP- GI 02/02/2014 YUAN DO, JACK K 455.6 HEMORRHOIDS NOS 02/02/2014 JOSIAH DIE ATTACHER, RASHEED S 211.9 POLYP- GI 02/02/2014 JOSIAH DIE ATTACHER, RASHEED S 455.6 HEMORRHOIDS NOS 02/02/2014 JOSIAH DIE ATTACHER, RASHEED S 211.9 POLYP- GI 02/02/2014 JOSIAH DIE ATTACHER, RASHEED S 455.6 HEMORRHOIDS NOS 02/02/2014 JOSIAH DIE ATTACHER, RASHEED S 211.9 POLYP- GI 02/02/2014 JOSIAH DIE ATTACHER, RASHEED S 455.6 HEMORRHOIDS NOS 02/10/2014 JOSEE ESCOTO [facility], ALI FACP CCDS Ot 272.4 HYPERLIPIDEMIA NEC/NOS 02/10/2014 JOSEE ESCOTO [facility], ALI FACP CCDS Ot 278.00 OBESITY, NOS 02/10/2014 JOSEE ESCOTO [facility], ALI FACP CCDS Ot 305.1 TOBACCO USE DISORDER 02/10/2014 JOSEE ESCOTO FAC, ALI FACP CCDS Ot 401.9 HYPERTENSION NOS 02/10/2014 JOSEE ESCOTO [facility], ALI FACP CCDS Ot 530.81 ESOPHAGEAL REFLUX 02/10/2014 JOSEE ESCOTO [facility], ALI FACP CCDS Ot 786.50 CHEST PAIN NOS 02/10/2014 JOSEE ESCOTO [facility], ALI FACP CCDS Ot V17.3 FAM HX-ISCHEM HEART DIS 02/10/2014 JOSEE ESCOTO [facility], ALI FACP CCDS Ot V58.69 OTH MED,LT,CURRENT USE 02/10/2014 JOSEE ESCOTO [facility], ALI FACP CCDS Ot V85.37 BODY MASS INDEX 37.0-37.9, ADULT 03/04/2014 SOSA GUSMAN MD Ot 496 CHR AIRWAY OBSTRUCT NEC 03/04/2014 SOSA GUSMAN MD Ot 717.40 DERANG LAT MENISCUS NOS 03/04/2014 SOSA GUSMAN MD Ot V57.1 PHYSICAL THERAPY NEC 03/04/2014 SOSA GUSMAN MD Ot V58.69 OTH MED,LT,CURRENT USE 03/19/2014 RASHEED RAHMAN APRN S 729.82 CRAMP OF LIMB 03/19/2014 RASHEED RAHMAN APRN S V04.81 FLU SHOT 03/19/2014 NICOLA RAHMAN APRNA S V15.82 NICOTINE ABUSE 03/19/2014 YUAN DO JACK K 729.82 CRAMP OF LIMB 03/19/2014 YUAN DO, JACK K V04.81 FLU SHOT 03/19/2014 YUAN DO, JACK K V15.82 NICOTINE ABUSE 03/19/2014 NICOLA RAHMAN APRNA S 729.82 CRAMP OF LIMB 03/19/2014 NICOLA RAHMAN APRNA S V04.81 FLU SHOT 03/19/2014 NICOLA RAHMAN APRNA S V15.82 NICOTINE ABUSE 03/19/2014 JOSIAH DIE ATTACHER, RASHEED S 729.82 CRAMP OF LIMB 03/19/2014 NAKIA RAHMAN APRNNDA S V04.81 FLU SHOT 03/19/2014 NAKIA RAHMAN APRNNDA S V15.82 NICOTINE ABUSE 03/19/2014 JOSIAH LERNER, RASHEED S 729.82 CRAMP OF LIMB 03/19/2014 NAKIA RAHMAN APRNNDA S V04.81 FLU SHOT 03/19/2014 NAKIA RAHMAN APRNNDA S V15.82 NICOTINE ABUSE 03/26/2014 NAKIA RAHMAN APRNNDA S 788.1 DYSURIA 03/26/2014 YUAN DO, JACK K 788.1 DYSURIA 03/26/2014 NAKIA RAHMAN APRNNDA S 788.1 DYSURIA 03/26/2014 NAKIA RAHMAN APRNNDA S 788.1 DYSURIA 03/26/2014 NICOLA RAHMAN APRNA S 788.1 DYSURIA 04/07/2014 RASHEED RAHMAN LOCOMOTIVE PIPE FITTER Ot 719.46 JOINT PAIN-L/LEG 04/07/2014 RASHEED RAHMANP Ot V57.1 PHYSICAL THERAPY NEC 04/10/2014 LIBERTY SANDOVAL DIE ATTACHER Ot 491.21 OBSTR CHRONIC BRONCHITIS, W (ACUTE) EXAC 04/10/2014 LIBERTY SANDOVAL DIE ATTACHER Ot 786.05 SHORTNESS OF BREATH 04/10/2014 LIBERTY SANDOVAL DIE ATTACHER Ot 787.02 NAUSEA ALONE 04/10/2014 LIBERTY SANDOVAL DIE ATTACHER Ot 787.91 DIARRHEA 04/17/2014 YUAN DO, JACK K 110.1 ONYCHOMYCOSIS 04/17/2014 YUAN DO, JACK K 706.8 XEROSIS 04/17/2014 NAKIA RAHMAN APRNNDA S 110.1 ONYCHOMYCOSIS 04/17/2014 NAKIA RAHMAN APRNNDA S 706.8 XEROSIS 04/17/2014 JOSIAH LERNER RASHEED S 110.1 ONYCHOMYCOSIS 04/17/2014 NAKIA RAHMAN APRNNDA S 706.8 XEROSIS 04/17/2014 NAKIA RAHMAN APRNNDA S 110.1 ONYCHOMYCOSIS 04/17/2014 JOSIAH LERNER RASHEED S 706.8 XEROSIS 06/03/2014 JOSIAH DIE ATTACHER, RASHEED S 466.0 BRONCHITIS, ACUTE 06/03/2014 JOSIAH DIE ATTACHER, RASHEED S 466.0 BRONCHITIS, ACUTE 06/03/2014 JOSIAH DIE ATTACHER, RASHEED S 466.0 BRONCHITIS, ACUTE 07/06/2014 JOSIAH DIE ATTACHER, RASHEED S 719.41 PAIN- SHOULDER 07/27/2014 Ot 786.50 07/27/2014 Ot 715.36 07/27/2014 Ot 791.9 07/27/2014 Ot V57.1 07/27/2014 Ot V57.21 07/27/2014 Ot V72.63 07/27/2014 Ot V74.8 07/27/2014 RASHEED RAHMAN Ot V76.12 07/27/2014 RASHEED RAHMAN Ot V76.12 [...] RYAN Moeller Ot 530.81 ESOPHAGEAL REFLUX 09/23/2014 RYAN JONES MD Ot 596.51 HYPERTONICITY OF BLADDER 09/23/2014 KAREN ESCOTO, RYAN Moeller Ot 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 09/23/2014 KAREN ESCOTO, RYAN Moeller Ot 788.30 UNSPECIFIED URINARY INCONTINENCE 10/12/2014 Ot 786.50 10/12/2014 Ot 715.36 10/12/2014 Ot 791.9 10/12/2014 Ot V57.1 10/12/2014 Ot V57.21 10/12/2014 Ot V72.63 10/12/2014 Ot V74.8 10/12/2014 RASHEED RAHMANP Ot V76.12 10/12/2014 RASHEED RAHMAN LOCOMOTIVE PIPE FITTER Ot V76.12 10/12/2014 SAMEERA ESCOTO, JAMIE Ot V72.84 10/12/2014 NESS ESCOTO, SOSA P Ot 717.7 10/12/2014 NESS ESCOTO, SOSA P Ot V72.84 10/12/2014 NESS ESCOTO, SOSA P Ot V74.8 10/12/2014 NESS ESCOTO, SOSA P Ot 727.61 10/12/2014 KAREN ESCOTO, RYAN A Ot 599.82 10/12/2014 KAREN ESCOTO, RYAN A Ot 788.30 10/12/2014 KAREN ESCOTO, RYAN A Ot V72.84 10/12/2014 KAREN ESCOTO, RYAN A Ot V74.8 10/29/2014 Ot 786.50 10/29/2014 Ot 715.36 10/29/2014 Ot 791.9 10/29/2014 Ot V57.1 10/29/2014 Ot V57.21 10/29/2014 Ot V72.63 10/29/2014 Ot V74.8 10/29/2014 RASHEED RAHMAN LOCOMOTIVE PIPE FITTER Ot V76.12 10/29/2014 RASHEED RAHMAN LOCOMOTIVE PIPE FITTER Ot V76.12 10/29/2014 SAMEERA ESCOTO, JAMIE Ot V72.84 10/29/2014 NESS ESCOTO, SOSA P Ot 717.7 10/29/2014 NESS ESCOTO, SOSA P Ot V72.84 10/29/2014 NESS ESCOTO, SOSA P Ot V74.8 10/29/2014 NESS ESCOTO, SOSA P Ot 727.61 10/29/2014 KAREN ESCOTO, RYAN A Ot 599.82 10/29/2014 KAREN ESCOTO, RYAN A Ot 788.30 10/29/2014 KAREN ESCOTO, RYAN A Ot V72.84 10/29/2014 KAREN ESCOTO, RYAN A Ot V74.8 10/29/2014 MOARIMA NOEL DO Ot 719.46 10/29/2014 MORAIMA NOEL DO Ot 724.2 10/29/2014 MORAIMA NOEL DO Ot 959.7 10/29/2014 GELLENDER DO, MORAIMA Moeller Ot E000.8 10/29/2014 GELLENDER DO, MORAIMA Moeller Ot E849.0 10/29/2014 GELLENDER DO, MORAIMA Moeller Ot E888.9 10/29/2014 GELLENDER DO, MORAIMA Moeller Ot 789.01 11/09/2014 GELLENDER DO, MORAIMA Moeller Ot 719.46 11/09/2014 GELLENDER DO, MORAIMA Moeller Ot 724.2 11/09/2014 GELLENDER DO, MORAIMA Moeller Ot 959.7 11/09/2014 GELLENDER DO, MORAIMA Moeller Ot E000.8 11/09/2014 GELLENDER DO, MORAIMA Moeller Ot E849.0 11/09/2014 GELLENDER DO, MORAIMA Moeller Ot E888.9 11/11/2014 RUFINA ESCOTO, NARAYAN Marr Ot 575.11 CHRONIC CHOLECYSTITIS 11/11/2014 RUFINA ESCOTO, NARAYAN Marr Ot V74.8 SCREEN-BACTERIAL DIS NEC 11/20/2014 GELLENDER DO, MORAIMA Moeller Ot 789.01 11/20/2014 GELLENDER DO, MORAIMA Moeller Ot 719.46 11/20/2014 GELLENDER DO, MORAIMA Moeller Ot 724.2 11/20/2014 GELLENDER DO, MORAIMA Moeller Ot 959.7 11/20/2014 GELLENDER DO, MORAIMA Moeller Ot E000.8 11/20/2014 GELLENDER DO, MORAIMA Moeller Ot E849.0 11/20/2014 GELLENDER DO, MORAIMA Moeller Ot E888.9 11/23/2014 GELLENDER DO, MORAIMA Moeller Ot 789.01 12/01/2014 GELLENDER DO, MORAIMA A Ot 575.8 12/02/2014 RUFINA ESCOTO, NARAYAN Marr Ot 575.8 12/02/2014 RUFINA ESCOTO, NARAYAN M Ot V72.63 12/02/2014 RUFINA ESCOTO, NARAYAN Marr [...] OT MED,LT,CURRENT USE 01/19/2015 NESS ESCOTO, SOSA P Ot 727.61 01/19/2015 NESS ESCOTO, SOSA Shelby Ot V57.1 01/19/2015 NESS ESCOTO, SOSA P Ot V58.78 01/19/2015 NESS ESCOTO, SOSA P Ot 727.61 01/19/2015 NESS ESCOTO, SOSA P Ot V57.1 01/19/2015 NESS ESCOTO, SOSA Shelby [...] Shelby Ot V72.84 03/17/2015 NESS ESCOTO, SOSA P Ot V74.8 03/17/2015 NESS ESCOTO, SOSA P Ot 727.61 03/17/2015 KAREN ESCOTO, RYAN A Ot 599.82 03/17/2015 KAREN ESCOTO, RYAN A Ot 788.30 03/17/2015 KAREN ESCOTO, RYAN A Ot V72.84 03/17/2015 KAREN ESCOTO, RYAN A Ot V74.8 03/17/2015 GELLENDER DO, MORAIMA A Ot 719.46 03/17/2015 GELLENDER DO, MORAIMA A Ot 724.2 03/17/2015 GELLENDER DO, MORAIMA A Ot 959.7 03/17/2015 GELLENDER DO, MORAIMA A Ot E000.8 03/17/2015 GELLENDER DO, MORAIMA A Ot E849.0 03/17/2015 GELLENDER DO, MORAIMA A Ot E888.9 03/17/2015 GELLENDER DO, MORAIMA A Ot 789.01 03/17/2015 GELLENDER DO, MORAIMA A Ot 575.8 03/17/2015 RUFINA ESCOTO, NARAYAN Marr Ot 575.8 03/17/2015 RUFINA ESCOTO, NARAYAN Marr Ot V72.63 03/17/2015 RUFINA ESCOTO, NARAYAN M Ot V72.81 03/17/2015 RUFINA ESCOTO, NARAYAN Marr Ot V74.8 03/17/2015 NESS ESCOTO, SOSA P Ot 715.31 03/17/2015 NESS ESCOTO, SOSA P Ot 727.61 03/17/2015 NESS ESCOTO, SOSA P Ot 840.7 03/17/2015 NESS ESCOTO, SOSA P Ot V72.83 03/24/2015 NESS ESCOTO, SOSA P Ot E78.5 HYPERLIPIDEMIA, UNSPECIFIED 03/24/2015 NESS ESCOTO, SSOA P Ot G56.02 CARPAL TUNNEL SYNDROME, LEFT UPPER LIMB 03/24/2015 NESS ESCOTO, SOSA P Ot I10 ESSENTIAL (PRIMARY) HYPERTENSION 03/24/2015 NESS ESCOTO, SOSA P Ot J44.9 CHRONIC OBSTRUCTIVE PULMONARY DISEASE, U 04/08/2015 RASHEED RAHMAN LOCOMOTIVE PIPE FITTER Ot Z12.31 04/13/2015 RASHEED RAHMAN LOCOMOTIVE PIPE FITTER Ot Z12.31 04/21/2015 SOSA GUSMAN MD Ot E78.5 HYPERLIPIDEMIA, UNSPECIFIED 04/21/2015 SOSA GUSMAN MD Ot G56.01 CARPAL TUNNEL SYNDROME, RIGHT UPPER LIMB 04/21/2015 SOSA GUSMAN MD Ot I10 ESSENTIAL (PRIMARY) HYPERTENSION 04/21/2015 SOSA GUSMAN MD Ot J44.9 CHRONIC OBSTRUCTIVE PULMONARY DISEASE, U 04/21/2015 SOSA GUSMAN MD Ot Z11.2 ENCOUNTER FOR SCREENING FOR [...] DO, MORAIMA A Ot N39.0 11/25/2015 SOSA GUSMAN MD Ot M12.9 ARTHROPATHY, UNSPECIFIED 11/25/2015 SOSA GUSMAN MD Ot Z01.818 ENCOUNTER FOR OTHER PREPROCEDURAL EXAMIN 11/25/2015 SOSA GUSMAN MD Ot Z11.2 ENCOUNTER FOR SCREENING FOR OTHER BACTER 11/26/2015 SOSA GUSMAN MD Ot M12.9 ARTHROPATHY, UNSPECIFIED 11/26/2015 SOSA GUSMAN MD Ot Z01.818 ENCOUNTER FOR OTHER PREPROCEDURAL EXAMIN 11/26/2015 SOSA GUSMAN MD Ot Z11.2 ENCOUNTER FOR SCREENING FOR OTHER BACTER 12/08/2015 SOSA GUSMAN MD Ot E78.5 HYPERLIPIDEMIA, UNSPECIFIED 12/08/2015 SOSA GUSMAN MD Ot I10 ESSENTIAL (PRIMARY) HYPERTENSION 12/08/2015 SOSA GUSMAN MD Ot J44.9 CHRONIC OBSTRUCTIVE PULMONARY DISEASE, U 12/08/2015 SOSA GUSMAN MD Ot M19.012 PRIMARY OSTEOARTHRITIS, LEFT SHOULDER 12/08/2015 SOSA GUSMAN MD Ot M75.41 IMPINGEMENT SYNDROME OF RIGHT SHOULDER 12/08/2015 SOSA GUSMAN MD Ot 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 12/09/2015 SOSA GUSMAN MD Ot E78.5 HYPERLIPIDEMIA, UNSPECIFIED 12/09/2015 SOSA GUSMAN MD Ot I10 ESSENTIAL (PRIMARY) HYPERTENSION 12/09/2015 SOSA GUSMAN MD Ot J44.9 CHRONIC OBSTRUCTIVE PULMONARY DISEASE, U 12/09/2015 SOSA GUSMAN MD Ot M19.012 PRIMARY OSTEOARTHRITIS, LEFT SHOULDER 12/09/2015 SOSA GUSMAN MD Ot M75.41 IMPINGEMENT SYNDROME OF RIGHT SHOULDER 12/09/2015 SOSA GUSMAN MD Ot 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 12/10/2015 SOSA GUSMAN MD Ot E78.5 HYPERLIPIDEMIA, UNSPECIFIED 12/10/2015 SOSA GUSMAN MD Ot I10 ESSENTIAL (PRIMARY) HYPERTENSION 12/10/2015 SOSA GUSMAN MD Ot J44.9 CHRONIC OBSTRUCTIVE PULMONARY DISEASE, U 12/10/2015 SOSA GUSMAN MD Ot M19.012 PRIMARY OSTEOARTHRITIS, LEFT SHOULDER 12/10/2015 SOSA GUSMAN MD Ot M75.41 IMPINGEMENT SYNDROME OF RIGHT SHOULDER 12/10/2015 SOSA GUSMAN MD Ot 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 12/14/2015 SOSA GUSMAN MD Ot S43.431D SUPERIOR GLENOID LABRUM LESION OF RIGHT 12/28/2015 RASHEED RAHMAN Ot G47.10 HYPERSOMNIA, UNSPECIFIED 12/28/2015 RASHEED RAHMAN Ot G47.33 OBSTRUCTIVE SLEEP APNEA (ADULT) (PEDIATR 12/28/2015 RASHEED RAHMAN Ot R06.83 SNORING 01/03/2016 SOSA GUSMAN MD Ot S43.431D SUPERIOR GLENOID LABRUM LESION OF RIGHT 01/04/2016 LIBERTY SANDOVAL APRN Ot F17.210 NICOTINE DEPENDENCE, CIGARETTES, UNCOMPL 01/04/2016 LIBERTY SANDOVAL APRN Ot T78.40XA ALLERGY, UNSPECIFIED, INITIAL ENCOUNTER 01/04/2016 Ot 715.36 LOC OSTEOARTH NOS-L/LEG 01/04/2016 Ot 791.9 ABN URINE FINDINGS NEC 01/04/2016 Ot V57.1 PHYSICAL THERAPY NEC 01/04/2016 Ot V57.21 ENCOUNTER FOR OCCUPATIONAL THERAPY 01/04/2016 Ot V72.63 PRE- PROCEDURAL LABORATORY EXAMINATION 01/04/2016 Ot V74.8 SCREEN- BACTERIAL DIS NEC 01/04/2016 RASHEED RAHMAN DIAMOND Ot V76.12 OTH SCREEN MAMMO-MALIGN NEOPLASM OF SAMANTHA 01/04/2016 JOSIAH RASHEED LOCOMOTIVE PIPE FITTER Ot V76.12 OTH SCREEN MAMMO-MALIGN NEOPLASM OF SAMANTHA 01/04/2016 SAMEERA ESCOTO, JAMIE Ot V72.84 EXAM PRE-OPERATIVE NOS 01/04/2016 NESS ESCOTO, SOSA Shelby Ot 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 PATELLAE 01/04/2016 NESS ESCOTO, SSOA Shelby Ot V72.84 EXAM PRE-OPERATIVE NOS 01/04/2016 [...] Moeller Ot V74.8 SCREEN-BACTERIAL DIS NEC 01/04/2016 MORAIMA NOEL DO Ot 719.46 JOINT PAIN-L/LEG 01/04/2016 MORAIMA NOEL DO Ot 724.2 LUMBAGO 01/04/2016 MAXIMUSDER MORAIMA HDEZ Ot 959.7 LOWER LEG INJURY NOS 01/04/2016 MORAIMA NOEL DO Ot E000.8 OTHER EXTERNAL CAUSE STATUS 01/04/2016 MORAIMA NOEL DO Ot E849.0 ACCIDENT IN HOME 01/04/2016 MORAIMA NOEL DO Ot E888.9 FALL NOS 01/04/2016 MORAIMA NOEL DO Ot 789.01 ABDOMINAL PAIN, RIGHT UPPER QUADRANT 01/04/2016 MORAIMA NOEL DO Ot 575.8 DIS OF GALLBLADDER NEC 01/04/2016 RUFINA ESCOTO, NARAYAN Marr Ot 575.8 DIS OF GALLBLADDER NEC 01/04/2016 RUFINA ESCOTO, NARAYAN Marr Ot V72.63 PRE-PROCEDURAL LABORATORY EXAMINATION 01/04/2016 RUFINA ESCOTO, NARAYAN Marr Ot V72.81 CSSO-[id number]-[id number] CARDIOVASCULAR 01/04/2016 RUFINA ESCOTO, NARAYAN Marr Ot V74.8 SCREEN-BACTERIAL DIS NEC 01/04/2016 NESS ESCOTO, SOSA Shelby Ot 715.31 LOC OSTEOARTH NOS-SHLDER 01/04/2016 NESS ESCOTO, SOSA Shelby Ot 727.61 ROTATOR CUFF RUPTURE 01/04/2016 NESS ESCOTO, SOSA Shelby Ot 840.7 (SLAP) SUPERIOR GLENOID LABRUM LESIONS 01/04/2016 NESS ESCOTO, SOSA Shelby Ot V72.83 EXAM PRE-OPERATIVE NEC 01/04/2016 Ot G56.02 CARPAL TUNNEL SYNDROME, LEFT UPPER LIMB 01/04/2016 Ot Z01.818 ENCOUNTER FOR OTHER PREPROCEDURAL EXAMIN 01/04/2016 Ot Z11.2 ENCOUNTER FOR SCREENING FOR OTHER BACTER 01/04/2016 RASHEED RAHMAN Ot Z12.31 ENCNTR SCREEN MAMMOGRAM FOR MALIGNANT NE 01/04/2016 MORAIMA NOEL DO Ot Z13.89 ENCOUNTER FOR SCREENING FOR OTHER DISORD 01/04/2016 NESS ESCOTO, SOSA Shelby Ot G56.01 CARPAL TUNNEL SYNDROME, RIGHT UPPER LIMB 01/04/2016 NESS ESCOTO, SOSA Shelby Ot Z01.818 ENCOUNTER FOR OTHER PREPROCEDURAL EXAMIN 01/04/2016 MORAIMA NOEL DO Ot J40 BRONCHITIS, NOT SPECIFIED ACUTE OR CH 01/04/2016 MORAIMA NOEL DO Ot J44.9 CHRONIC OBSTRUCTIVE PULMONARY DISEASE, U 01/04/2016 MORAIMA NOEL DO Ot N39.0 URINARY TRACT INFECTION, SITE NOT SPECIF 01/04/2016 NESS ESCOTO, SOSA Shelby Ot S43.431D SUPERIOR GLENOID LABRUM LESION OF RIGHT 01/05/2016 LIBERTY SANDOVAL APRN Ot F17.210 NICOTINE DEPENDENCE, CIGARETTES, UNCOMPL 01/05/2016 LIBERTY SANDOVAL APRN Ot T78.40XA ALLERGY, UNSPECIFIED, INITIAL ENCOUNTER 01/13/2016 TILLMAN, DINO D LOCOMOTIVE PIPE FITTER Ot R22.31 LOCALIZED SWELLING, MASS AND LUMP, RIGHT 02/04/2016 NESS ESCOTO, SOSA Shelby Ot S43.431D SUPERIOR GLENOID LABRUM LESION OF RIGHT 02/04/2016 NESS ESCOTO, SOSA Shelby Ot S43.431D SUPERIOR GLENOID LABRUM LESION OF RIGHT 02/04/2016 DINO TILLMAN LOCOMOTIVE PIPE FITTER Ot R22.31 LOCALIZED SWELLING, MASS AND LUMP, [...] V74.8 SCREEN- BACTERIAL DIS NEC 04/03/2016 RASHEED RAHMAN Ot V76.12 OTH SCREEN MAMMO-MALIGN NEOPLASM OF SAMANTHA 04/03/2016 RASHEED RAHMAN Ot V76.12 OTH SCREEN MAMMO-MALIGN NEOPLASM OF SAMANTHA 04/03/2016 SAMEERA ESCOTO, JAMIE Ot V72.84 EXAM PRE-OPERATIVE NOS 04/03/2016 NESS ESCOTO, SOSA Shelby Ot 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 PATELLAE 04/03/2016 SOSA GUSMAN MD Ot V72.84 EXAM PRE-OPERATIVE NOS 04/03/2016 SOSA GUSMAN MD Ot V74.8 SCREEN-BACTERIAL DIS NEC 04/03/2016 SOSA GUSMAN MD Ot 727.61 ROTATOR CUFF RUPTURE 04/03/2016 KAREN ESCOTO, RYAN Moeller Ot 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 04/03/2016 RYAN JONES MD Ot 788.30 UNSPECIFIED URINARY INCONTINENCE 04/03/2016 RYAN JONES MD Ot V72.84 EXAM PRE-OPERATIVE NOS 04/03/2016 KAREN ESCOTO, RYAN Moeller Ot V74.8 SCREEN-BACTERIAL DIS NEC 04/03/2016 MORAIMA [...] 789.01 ABDOMINAL PAIN, RIGHT UPPER QUADRANT 04/03/2016 MORAIMA NOEL DO Ot 575.8 DIS OF GALLBLADDER NEC 04/03/2016 RUFINA ESCOTO, NARAYAN Marr Ot 575.8 DIS OF GALLBLADDER NEC 04/03/2016 RUFINA ESCOTO, NARAYAN Marr Ot V72.63 PRE-PROCEDURAL LABORATORY EXAMINATION 04/03/2016 RUFINA ESCOTO, NARAYAN Marr Ot V72.81 [id number] CARDIOVASCULAR 04/03/2016 RUFINA ESCOTO, NARAYAN Marr Ot V74.8 SCREEN-BACTERIAL DIS NEC 04/03/2016 NESS ESCOTO, SOSA Shelby Ot 715.31 LOC OSTEOARTH NOS-SHLDER 04/03/2016 SOSA GUSMAN MD Ot 727.61 ROTATOR CUFF RUPTURE 04/03/2016 NESS [...] ENCNTR SCREEN MAMMOGRAM FOR MALIGNANT NE 04/03/2016 MORAIMA NOEL DO Ot Z13.89 ENCOUNTER FOR SCREENING FOR OTHER DISORD 04/03/2016 NESS ESCOTO, SOSA Shelby Ot G56.01 CARPAL TUNNEL SYNDROME, RIGHT UPPER LIMB 04/03/2016 NESS ESCOTO, SOSA Shelby Ot Z01.818 ENCOUNTER FOR OTHER PREPROCEDURAL EXAMIN 04/03/2016 MORAIMA NOEL DO Ot J40 BRONCHITIS, NOT SPECIFIED ACUTE OR CH 04/03/2016 MORAIMA NOEL DO Ot J44.9 CHRONIC OBSTRUCTIVE PULMONARY DISEASE, U 04/03/2016 MORAIMA NOEL DO Ot N39.0 URINARY TRACT INFECTION, SITE NOT SPECIF 04/03/2016 DINO TILLMAN LOCOMOTIVE PIPE FITTER Ot R22.31 LOCALIZED SWELLING, MASS AND LUMP, RIGHT 04/03/2016 RASHEED RAHMANP Ot Z12.31 ENCNTR SCREEN MAMMOGRAM FOR MALIGNANT NE 04/03/2016 RASHEED RAHMAN Ot Z12.31 ENCNTR SCREEN MAMMOGRAM FOR MALIGNANT NE 04/04/2016 RASHEED RAHMAN Ot Z12.31 ENCNTR SCREEN MAMMOGRAM [...] MD Ot 788.30 UNSPECIFIED URINARY INCONTINENCE 04/12/2016 KAREN ESCOTO, RYAN Moeller Ot V72.84 EXAM PRE-OPERATIVE NOS 04/12/2016 KAREN ESCOTO, RYAN Moeller Ot V74.8 SCREEN-BACTERIAL DIS NEC 04/12/2016 BERT HDEZ MORAIMA Moeller Ot 719.46 JOINT PAIN-L/LEG 04/12/2016 BERT HDEZMORAIMA Ot 724.2 LUMBAGO 04/12/2016 BERT HDEZ MORAIMA Moeller Ot 959.7 LOWER LEG INJURY NOS 04/12/2016 BERT HDEZ MORAIMA Moeller Ot E000.8 OTHER EXTERNAL CAUSE STATUS 04/12/2016 MORAIMA NOEL DO Ot E849.0 ACCIDENT IN HOME 04/12/2016 BERT HDEZ MORAIMA Moeller Ot E888.9 FALL NOS 04/12/2016 BERT HDEZ MORAIMA Moeller Ot 789.01 ABDOMINAL PAIN, RIGHT UPPER QUADRANT 04/12/2016 BERT HDEZMORAIMA Ot 575.8 DIS OF GALLBLADDER NEC 04/12/2016 RUFINA ESCOTO, NARAYAN Marr Ot 575.8 DIS OF GALLBLADDER NEC 04/12/2016 RUFINA ESCOTO, NARAYAN Marr Ot V72.63 PRE-PROCEDURAL LABORATORY EXAMINATION 04/12/2016 RUFINA ESCOTO, NARAYAN Marr Ot V72.81 [id number] CARDIOVASCULAR 04/12/2016 RUFINA ESCOTO, NARAYAN Marr Ot [...] ENCOUNTER FOR SCREENING FOR OTHER DISORD 04/12/2016 SOSA GUSMAN MD Ot G56.01 CARPAL TUNNEL SYNDROME, RIGHT UPPER LIMB 04/12/2016 SSOA GUSMAN MD Ot Z01.818 ENCOUNTER FOR OTHER PREPROCEDURAL EXAMIN 04/12/2016 MORAIMA NOEL DO Ot J40 BRONCHITIS, NOT SPECIFIED ACUTE OR CH 04/12/2016 MORAIMA NOEL DO Ot J44.9 CHRONIC OBSTRUCTIVE PULMONARY DISEASE, U 04/12/2016 MORAIMA NOEL DO Ot N39.0 URINARY TRACT INFECTION, SITE NOT SPECIF 04/12/2016 PRIMO DINO Radu FIELDS Ot R22.31 LOCALIZED SWELLING, MASS AND LUMP, RIGHT 04/12/2016 RASHEED RAHMAN Ot Z12.31 ENCNTR SCREEN MAMMOGRAM FOR MALIGNANT NE 04/13/2016 RASHEED RAHMAN Ot Z12.31 ENCNTR SCREEN MAMMOGRAM FOR MALIGNANT NE 04/13/2016 LAURA ROBLERO MD Ot E78.00 PURE HYPERCHOLESTEROLEMIA, UNSPECIFIED 04/13/2016 LAURA ROBLERO MD Ot E86.0 DEHYDRATION 04/13/2016 LAUAR ROBLERO MD Ot F17.210 NICOTINE DEPENDENCE, CIGARETTES, UNCOMPL 04/13/2016 LAURA ROBLERO MD Ot F41.9 ANXIETY DISORDER, UNSPECIFIED 04/13/2016 LAURA ROBLERO MD Ot I10 ESSENTIAL (PRIMARY) HYPERTENSION 04/13/2016 LAURA ROBLERO MD Ot I95.9 HYPOTENSION, UNSPECIFIED 04/13/2016 LAURA ROBLERO MD Ot J44.9 CHRONIC OBSTRUCTIVE PULMONARY DISEASE, U 04/13/2016 LAURA ROBLERO MD Ot J45.909 UNSPECIFIED ASTHMA, UNCOMPLICATED 04/13/2016 LAURA ROBLERO MD Ot K21.9 GASTRO-ESOPHAGEAL REFLUX DISEASE WITHOUT 04/13/2016 LAURA ROBLERO MD Ot L40.9 PSORIASIS, UNSPECIFIED 04/13/2016 LAURA ROBLERO MD Ot M19.90 UNSPECIFIED OSTEOARTHRITIS, UNSPECIFIED 04/13/2016 LAURA ROBLERO MD Ot M54.9 DORSALGIA, UNSPECIFIED 04/13/2016 LAURA ROBLERO MD Ot N17.9 ACUTE KIDNEY FAILURE, UNSPECIFIED 04/13/2016 LAURA ROBLERO MD Ot N31.9 NEUROMUSCULAR DYSFUNCTION OF BLADDER, UN 04/13/2016 ANNIKA ESCOTO, LAURA Moeller Ot Z96.651 PRESENCE OF RIGHT ARTIFICIAL KNEE JOINT 06/01/2016 RASHEED RAHMAN Ot Z12.31 ENCNTR SCREEN MAMMOGRAM [...] M19.91 PRIMARY OSTEOARTHRITIS, UNSPECIFIED SITE 07/13/2016 YAMILET SGEAL MD Ot M54.2 CERVICALGIA 07/13/2016 YAMILET SEGAL MD Ot M54.9 DORSALGIA, UNSPECIFIED 07/13/2016 YAMLIET SEGAL MD Ot N31.9 NEUROMUSCULAR DYSFUNCTION OF [...] Ot M54.9 DORSALGIA, UNSPECIFIED 07/14/2016 YAMILET SEGAL MD, Ot N31.9 NEUROMUSCULAR DYSFUNCTION OF BLADDER, [...] INFECTION OF THE SKIN AND SUBCUTAN 07/14/2016 AYMILET SEGAL MD Ot M19.91 PRIMARY OSTEOARTHRITIS, UNSPECIFIED SITE 07/14/2016 YAMILET SEGAL MD Ot M54.2 CERVICALGIA 07/14/2016 YAMILET SEGAL MD Ot M54.9 DORSALGIA, UNSPECIFIED 07/14/2016 YAMILET SEGAL MD Ot N31.9 NEUROMUSCULAR DYSFUNCTION OF BLADDER, UN 07/14/2016 YAMILET SEGAL MD Ot R51 HEADACHE 07/14/2016 YAMILET SEGAL MD Ot Z91.81 HISTORY OF FALLING 07/15/2016 AYMILET SEGAL MD Ot E87.6 HYPOKALEMIA 07/15/2016 YAMILET SEGAL MD Ot F15.10 OTHER STIMULANT ABUSE, UNCOMPLICATED 07/15/2016 YAMILET SEGAL MD Ot F17.210 NICOTINE DEPENDENCE, CIGARETTES, UNCOMPL 07/15/2016 YAMILET SEGAL MD Ot F41.9 ANXIETY DISORDER, UNSPECIFIED 07/15/2016 YAMILET SEGAL MD Ot I10 ESSENTIAL (PRIMARY) HYPERTENSION 07/15/2016 YMAILET SEGAL MD Ot J44.9 CHRONIC OBSTRUCTIVE PULMONARY DISEASE, U 07/15/2016 YAMILET SEGAL MD Ot J45.909 UNSPECIFIED ASTHMA, UNCOMPLICATED 07/15/2016 YAMILET SEGAL MD, Ot K21.9 GASTRO-ESOPHAGEAL REFLUX DISEASE WITHOUT 07/15/2016 YAMILET SEGAL MD, Ot L08.9 LOCAL INFECTION OF THE SKIN AND SUBCUTAN 07/15/2016 YAMILET SEGAL MD Ot M19.91 PRIMARY OSTEOARTHRITIS, UNSPECIFIED SITE 07/15/2016 YAMILET SEGAL MD Ot M54.2 CERVICALGIA 07/15/2016 YAMILET SEGAL MD, Ot M54.9 DORSALGIA, UNSPECIFIED 07/15/2016 YAMILET SEGAL MD Ot N31.9 NEUROMUSCULAR DYSFUNCTION OF BLADDER, UN 07/15/2016 YAMILET SEGAL MD Ot R51 HEADACHE 07/15/2016 YAMILET SEGAL MD, Ot Z91.81 HISTORY OF FALLING 07/15/2016 YAMILET [...] I10 ESSENTIAL (PRIMARY) HYPERTENSION 07/15/2016 YAMILET SEGAL MD, Ot J44.9 CHRONIC OBSTRUCTIVE PULMONARY DISEASE, U 07/15/2016 YAMILET SEGAL MD, Ot J45.909 UNSPECIFIED ASTHMA, UNCOMPLICATED 07/15/2016 YAMILET SEGAL MD, Ot K21.9 GASTRO-ESOPHAGEAL REFLUX DISEASE WITHOUT 07/15/2016 YAMILET SEGAL MD Ot L03.116 CELLULITIS OF LEFT LOWER LIMB 07/15/2016 YAMILET SEGAL MD, Ot L08.9 LOCAL INFECTION OF THE SKIN AND SUBCUTAN 07/15/2016 YAMILET SEGAL MD Ot L97.129 NON-PRESSURE CHRONIC ULCER OF LEFT THIGH 07/15/2016 YAMILET SEGAL MD Ot M19.91 PRIMARY OSTEOARTHRITIS, UNSPECIFIED SITE 07/15/2016 YAMILET SEGAL MD Ot M54.2 CERVICALGIA 07/15/2016 YAMILET SEGAL MD R Ot M54.9 DORSALGIA, UNSPECIFIED 07/15/2016 YAMILET SEGAL MD Ot N31.9 NEUROMUSCULAR DYSFUNCTION OF BLADDER, UN 07/15/2016 LUZMA ESCOTO, YAMILET Guevara Ot N61.0 MASTITIS WITHOUT ABSCESS 07/15/2016 LUZMA ESCOTO, YAMILET R Ot R51 HEADACHE 07/15/2016 LUZMA ESCOTO, YAMILET R Ot T43.621A POISONING BY AMPHETAMINES, ACCIDENTAL (U 07/15/2016 LUZMA ESCOTO, YAMILET Guevara Ot Z91.81 HISTORY OF FALLING 07/29/2016 Ot [...] OTH SCREEN MAMMO-MALIGN NEOPLASM OF SAMANTHA 07/29/2016 SAMEERA ESCOTO, JAMIE Ot V72.84 EXAM PRE-OPERATIVE NOS 07/29/2016 NESS ESCOTO, SOSA Shelby Ot 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 PATELLAE 07/29/2016 SOSA GUSMAN MD Ot V72.84 EXAM PRE-OPERATIVE NOS 07/29/2016 SOSA GUSMAN MD Ot V74.8 SCREEN-BACTERIAL DIS NEC 07/29/2016 SOSA GUSMAN MD Ot 727.61 ROTATOR CUFF RUPTURE 07/29/2016 [...] EXTERNAL CAUSE STATUS 07/29/2016 MORAIMA NOEL DO Ot E849.0 ACCIDENT IN HOME 07/29/2016 MORAIMA NOEL DO Ot E888.9 FALL NOS 07/29/2016 MORAIMA NOEL DO Ot 789.01 ABDOMINAL PAIN, RIGHT UPPER QUADRANT 07/29/2016 MORAIMA NOEL DO Ot 575.8 DIS OF GALLBLADDER NEC 07/29/2016 RUFINA ESCOTO, NARAYAN Marr Ot 575.8 DIS OF GALLBLADDER NEC 07/29/2016 RUFINA ESCOTO, NARAYAN Marr Ot V72.63 PRE-PROCEDURAL LABORATORY EXAMINATION 07/29/2016 RUFINA ESCOTO, NARAYAN Marr Ot V72.81 [id number] CARDIOVASCULAR 07/29/2016 RUFINA ESCOTO, NARAYAN Marr Ot [...] ENCNTR SCREEN MAMMOGRAM FOR MALIGNANT NE 07/29/2016 MORAIMA NOEL DO Ot Z13.89 ENCOUNTER FOR SCREENING FOR OTHER DISORD 07/29/2016 NESS ESCOTO, SOSA Shelby Ot G56.01 CARPAL TUNNEL SYNDROME, RIGHT UPPER LIMB 07/29/2016 NESS ESCOTO, SOSA Shelby Ot Z01.818 ENCOUNTER FOR OTHER PREPROCEDURAL EXAMIN 07/29/2016 MORAIMA NOEL DO Ot J40 BRONCHITIS, NOT SPECIFIED ACUTE OR CH 07/29/2016 TRAVISMORAIMA PETE DO Ot J44.9 CHRONIC OBSTRUCTIVE PULMONARY DISEASE, U 07/29/2016 TRAVISMORAIMA PETE DO Ot N39.0 URINARY TRACT INFECTION, SITE NOT SPECIF 07/29/2016 TILLMAN, DINO Radu FIELDS Ot R22.31 LOCALIZED SWELLING, MASS AND LUMP, RIGHT 07/29/2016 RASHEED RAHMAN Ot Z12.31 ENCNTR SCREEN MAMMOGRAM FOR MALIGNANT NE 07/31/2016 SOSA GUSMAN MD Ot M75.121 COMPLETE ROTATR-CUFF TEAR/RUPTR OF R JOSSY 08/03/2016 SOSA GUSMAN MD Ot M75.121 COMPLETE ROTATR-CUFF TEAR/RUPTR OF R JOSSY 08/04/2016 SOSA GUSMAN MD Ot M75.121 COMPLETE ROTATR-CUFF TEAR/RUPTR OF R JOSSY 08/21/2016 SOSA GUSMNA MD Ot M75.121 COMPLETE ROTATR-CUFF TEAR/RUPTR OF R JOSSY 08/25/2016 SOSA GUSMAN MD Ot M75.121 COMPLETE ROTATR-CUFF TEAR/RUPTR OF [...] OTH SCREEN MAMMO-MALIGN NEOPLASM OF SAMANTHA 10/25/2016 SAMEERA ESCOTO, JAMIE Ot V72.84 EXAM PRE-OPERATIVE NOS 10/25/2016 NESS ESCOTO, SOSA Shelby Ot 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 PATELLAE 10/25/2016 SOSA GUSMAN MD Ot V72.84 EXAM PRE-OPERATIVE NOS 10/25/2016 NESS ESCOTO, SOSA Shelby Ot V74.8 SCREEN-BACTERIAL DIS NEC 10/25/2016 NESS ESCOTO, SOSA Shelby Ot 727.61 ROTATOR CUFF RUPTURE 10/25/2016 KAREN ESCOTO, RYAN Moeller Ot 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 10/25/2016 RYAN JONES MD Ot 788.30 UNSPECIFIED URINARY INCONTINENCE 10/25/2016 RYAN JONES MD Ot V72.84 EXAM PRE-OPERATIVE NOS 10/25/2016 KAREN ESCOTO, RYAN Moeller Ot V74.8 SCREEN-BACTERIAL DIS NEC 10/25/2016 MORAIMA NOEL DO Ot 719.46 JOINT PAIN-L/LEG 10/25/2016 MORAIMA NOEL DO Ot 724.2 LUMBAGO 10/25/2016 MORAIMA NOEL DO Ot 959.7 LOWER LEG INJURY NOS 10/25/2016 BERT MORAIMA HDEZ Ot E000.8 OTHER EXTERNAL CAUSE STATUS 10/25/2016 MORAIMA NOEL DO Ot E849.0 ACCIDENT IN HOME 10/25/2016 MORAIMA NOEL DO Ot E888.9 FALL NOS 10/25/2016 BERT MORAIMA HDEZ Ot 789.01 ABDOMINAL PAIN, RIGHT UPPER QUADRANT 10/25/2016 MORAIMA NOEL DO Ot 575.8 DIS OF GALLBLADDER NEC 10/25/2016 RUFINA ESCOTO, NARAYAN Marr Ot 575.8 DIS OF GALLBLADDER NEC 10/25/2016 RUFINA ESCOTO, NARAYAN Marr Ot V72.63 PRE-PROCEDURAL LABORATORY EXAMINATION 10/25/2016 RUFINA ESCOTO, NARAYAN Marr Ot V72.81 [id number] CARDIOVASCULAR 10/25/2016 NARAYAN ALMARAZ MD Ot V74.8 SCREEN-BACTERIAL DIS NEC 10/25/2016 SOSA GUSMAN MD Ot 715.31 LOC OSTEOARTH NOS-SHLDER 10/25/2016 SOSA GUSMAN MD Ot 727.61 ROTATOR CUFF RUPTURE 10/25/2016 SOSA GUSMAN MD Ot 840.7 (SLAP) SUPERIOR GLENOID LABRUM LESIONS 10/25/2016 SOSA GUSMAN MD Ot V72.83 EXAM PRE-OPERATIVE NEC 10/25/2016 Ot G56.02 CARPAL TUNNEL SYNDROME, LEFT UPPER LIMB 10/25/2016 Ot Z01.818 ENCOUNTER FOR OTHER PREPROCEDURAL EXAMIN 10/25/2016 Ot Z11.2 ENCOUNTER FOR SCREENING FOR OTHER BACTER 10/25/2016 RASHEED RAHMAN Ot Z12.31 ENCNTR SCREEN MAMMOGRAM FOR MALIGNANT NE 10/25/2016 MORAIMA NOEL DO Ot Z13.89 ENCOUNTER FOR SCREENING FOR OTHER DISORD 10/25/2016 SOSA GUSMAN MD Ot G56.01 CARPAL TUNNEL SYNDROME, RIGHT UPPER LIMB 10/25/2016 SOSA GUSMAN MD Ot Z01.818 ENCOUNTER FOR OTHER PREPROCEDURAL EXAMIN 10/25/2016 MORIAMA NOEL DO Ot J40 BRONCHITIS, NOT SPECIFIED ACUTE OR CH 10/25/2016 MORAIMA NOEL DO Ot J44.9 CHRONIC OBSTRUCTIVE PULMONARY DISEASE, U 10/25/2016 MORAIMA NOEL DO Ot N39.0 URINARY TRACT INFECTION, SITE NOT SPECIF 10/25/2016 DINO TILLMAN Ot R22.31 LOCALIZED SWELLING, MASS AND LUMP, RIGHT 10/25/2016 RASHEED RAHMAN Ot Z12.31 ENCNTR SCREEN MAMMOGRAM FOR MALIGNANT NE 10/25/2016 SOSA GUSMAN MD Ot M75.121 COMPLETE ROTATR-CUFF TEAR/RUPTR OF R JOSSY 10/31/2016 MEDARDO DUFFY MD Ot Z51.81 ENCOUNTER FOR THERAPEUTIC DRUG LEVEL MON 10/31/2016 MEDARDO DUFFY MD Ot Z79.899 OTHER RETIREMENT (CURRENT) DRUG THERAPY 11/17/2016 MEDARDO DUFFY MD Ot Z51.81 ENCOUNTER FOR THERAPEUTIC DRUG LEVEL MON 11/17/2016 MEDARDO DUFFY MD Ot Z79.899 OTHER RETIREMENT (CURRENT) DRUG THERAPY 11/21/2016 CLIVE ESCOTO, MEDARDO Chowdhury Ot Z51.81 ENCOUNTER FOR THERAPEUTIC DRUG LEVEL MON 11/21/2016 CLIVE ESCOTO, MEDARDO Chowdhury Ot Z79.899 OTHER RETIREMENT (CURRENT) DRUG THERAPY 05/01/2017 RASHEED RAHMAN Ot V76.12 OTH SCREEN MAMMO-MALIGN NEOPLASM OF SAMANTHA 05/01/2017 RASHEED RAHMAN Ot V76.12 OTH SCREEN MAMMO-MALIGN NEOPLASM OF SAMANTHA 05/01/2017 SAMEERA ESCOTO, JAMIE Ot V72.84 EXAM PRE-OPERATIVE NOS 05/01/2017 NESS ESCOTO, SSOA Shelby Ot 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 PATELLAE 05/01/2017 SOSA GUSMAN MD Ot V72.84 EXAM PRE-OPERATIVE NOS 05/01/2017 SOAS GUSMAN MD Ot V74.8 SCREEN-BACTERIAL DIS NEC 05/01/2017 SOSA GUSMAN MD Ot 727.61 ROTATOR CUFF RUPTURE 05/01/2017 KAREN ESCOTO, RYAN Moeller Ot 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 05/01/2017 RYAN JONES MD Ot 788.30 UNSPECIFIED URINARY INCONTINENCE 05/01/2017 RYAN JONES MD Ot V72.84 EXAM PRE-OPERATIVE NOS 05/01/2017 KAREN ESCOTO, RYAN Moeller Ot V74.8 SCREEN-BACTERIAL DIS NEC 05/01/2017 MORAIMA NOEL DO Ot 719.46 JOINT PAIN-L/LEG 05/01/2017 MORAIMA NOEL DO Ot 724.2 LUMBAGO 05/01/2017 MORAIMA NOEL DO Ot 959.7 LOWER LEG INJURY NOS 05/01/2017 MORAIMA NOEL DO Ot E000.8 OTHER EXTERNAL CAUSE STATUS 05/01/2017 MORAIMA NOEL DO Ot E849.0 ACCIDENT IN HOME 05/01/2017 MORAIMA NOEL DO Ot E888.9 FALL NOS 05/01/2017 MORAMIA NOEL DO Ot 789.01 ABDOMINAL PAIN, RIGHT UPPER QUADRANT 05/01/2017 MORAIMA NOEL DO Ot 575.8 DIS OF GALLBLADDER NEC 05/01/2017 RUFINA ESCOTO, NARAYAN Marr Ot 575.8 DIS OF GALLBLADDER NEC 05/01/2017 RUFINA ESCOTO, NARAYAN Marr Ot V72.63 PRE-PROCEDURAL LABORATORY EXAMINATION 05/01/2017 RUFINA ESCOTO, NARAYAN Marr Ot V72.81 [id number] CARDIOVASCULAR 05/01/2017 RUFINA ESCOTO, NARAYAN Mrar Ot V74.8 SCREEN-BACTERIAL DIS NEC 05/01/2017 NESS ESCOTO, SOSA Shelby Ot 715.31 LOC OSTEOARTH NOS-SHLDER 05/01/2017 SOSA GUSMAN MD Ot 727.61 ROTATOR CUFF RUPTURE 05/01/2017 SOSA GUSMAN MD Ot 840.7 (SLAP) SUPERIOR GLENOID LABRUM LESIONS 05/01/2017 SOSA GUSMAN MD Ot V72.83 EXAM PRE-OPERATIVE NEC 05/01/2017 Ot G56.02 CARPAL TUNNEL SYNDROME, LEFT UPPER LIMB 05/01/2017 Ot Z01.818 ENCOUNTER FOR OTHER PREPROCEDURAL EXAMIN 05/01/2017 Ot Z11.2 ENCOUNTER FOR SCREENING FOR OTHER BACTER 05/01/2017 RASHEED RAHMAN Ot Z12.31 ENCNTR SCREEN MAMMOGRAM FOR MALIGNANT NE 05/01/2017 MORAIMA NOEL DO Ot Z13.89 ENCOUNTER FOR SCREENING FOR OTHER DISORD 05/01/2017 SOSA GUSMAN MD Ot G56.01 CARPAL TUNNEL SYNDROME, RIGHT UPPER LIMB 05/01/2017 SOSA GUSMAN MD Ot Z01.818 ENCOUNTER FOR OTHER PREPROCEDURAL [...] SCREEN MAMMOGRAM FOR MALIGNANT NE 05/01/2017 SOSA GUSMAN MD Ot M75.121 COMPLETE ROTATR-CUFF TEAR/RUPTR OF R JOSSY 05/01/2017 CLIVE ESCOTO, MEDARDO Chowdhury Ot Z51.81 ENCOUNTER FOR THERAPEUTIC DRUG LEVEL MON 05/01/2017 CLIVE ESCOTO, MEDARDO Chowdhury Ot Z79.899 OTHER RETIREMENT (CURRENT) DRUG THERAPY 05/01/2017 MEDARDO DUFFY MD Ot Z12.31 ENCNTR SCREEN MAMMOGRAM FOR MALIGNANT NE 05/02/2017 PAMELA ESCOTO, JEN Zhong Ot M25.811 OTHER SPECIFIED JOINT DISORDERS, RIGHT S 05/11/2017 JOSEE ESCOTO FAC, ALI FACP CCDS Ot E78.4 OTHER HYPERLIPIDEMIA 05/11/2017 JOSEE ESCOTO FACC, ALI FACP CCDS Ot I10 ESSENTIAL (PRIMARY) HYPERTENSION 05/11/2017 JOSEE ESCOTO FACC, ALI FACP CCDS Ot J43.8 OTHER EMPHYSEMA 05/11/2017 JOSEE ESCOTO FAC, ALI FACP CCDS Ot R06.02 SHORTNESS OF BREATH 05/11/2017 JOSEE ESCOTO FAC, ALI FACP CCDS Ot Z72.0 TOBACCO USE 05/21/2017 RASHEED RAHMAN Ot V76.12 OTH SCREEN MAMMO-MALIGN NEOPLASM OF SAMANTHA 05/21/2017 RASHEED RAHMAN LOCOMOTIVE PIPE FITTER Ot V76.12 OTH SCREEN MAMMO-MALIGN NEOPLASM OF SAMANTHA 05/21/2017 SAMEERA ESCOTO, JAMIE Ot V72.84 EXAM PRE-OPERATIVE NOS 05/21/2017 SOSA GUSMAN MD Ot 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 PATELLAE 05/21/2017 SOSA GUSMAN MD Ot V72.84 EXAM PRE-OPERATIVE NOS 05/21/2017 SOSA GUSMAN MD Ot V74.8 SCREEN-BACTERIAL DIS NEC 05/21/2017 SOSA GUSMAN MD Ot 727.61 ROTATOR CUFF RUPTURE 05/21/2017 [...] OF GALLBLADDER NEC 05/21/2017 RUFINA ESCOTO, NARAYAN Mrar Ot 575.8 DIS OF GALLBLADDER NEC 05/21/2017 RUFINA ESCOTO, NARAYAN Marr Ot V72.63 PRE-PROCEDURAL LABORATORY EXAMINATION 05/21/2017 RUFINA ESCOTO, NARAYAN Marr Ot V72.81 [id number] CARDIOVASCULAR 05/21/2017 RUFINA ESCOTO, NARAYAN Marr Ot V74.8 SCREEN-BACTERIAL DIS NEC 05/21/2017 NESS ESCOTO, SOSA Shelby Ot 715.31 LOC OSTEOARTH NOS-SHLDER 05/21/2017 NESS ESCOTO, SOSA Shelby Ot 727.61 ROTATOR CUFF RUPTURE 05/21/2017 NESS ESCOTO, SOSA Shelby Ot 840.7 (SLAP) SUPERIOR GLENOID LABRUM LESIONS 05/21/2017 SOSA GUSMAN MD Ot V72.83 EXAM PRE-OPERATIVE NEC 05/21/2017 Ot G56.02 CARPAL TUNNEL SYNDROME, LEFT UPPER LIMB 05/21/2017 Ot Z01.818 ENCOUNTER FOR OTHER PREPROCEDURAL EXAMIN 05/21/2017 Ot Z11.2 ENCOUNTER FOR SCREENING FOR OTHER BACTER 05/21/2017 RASHEED RAHMAN Ot Z12.31 ENCNTR SCREEN MAMMOGRAM FOR MALIGNANT NE 05/21/2017 BERT HDEZ MORAIMA Moeller Ot Z13.89 ENCOUNTER FOR SCREENING FOR OTHER DISORD 05/21/2017 NESS ESCOTO, SOSA Shelby Ot G56.01 CARPAL TUNNEL SYNDROME, RIGHT UPPER LIMB 05/21/2017 SOSA GUSMAN MD Ot Z01.818 ENCOUNTER FOR OTHER PREPROCEDURAL EXAMIN 05/21/2017 BERT HDEZ MORAIMA Moeller Ot J40 BRONCHITIS, NOT SPECIFIED ACUTE OR CH 05/21/2017 BERT HDEZMORAIMA Ot J44.9 CHRONIC OBSTRUCTIVE PULMONARY DISEASE, U 05/21/2017 MORAIMA NOEL DO Ot N39.0 URINARY TRACT INFECTION, SITE NOT SPECIF 05/21/2017 TILLMANDINO Gan Radu FIELDS Ot R22.31 LOCALIZED SWELLING, MASS AND LUMP, RIGHT 05/21/2017 RASHEED RAHMAN DIAMOND Ot Z12.31 ENCNTR SCREEN MAMMOGRAM FOR MALIGNANT NE 05/21/2017 NESS ESCOTO, SOSA Shelby Ot M75.121 COMPLETE ROTATR-CUFF TEAR/RUPTR OF R JOSSY 05/21/2017 MEDARDO DUFFY MD Ot Z51.81 ENCOUNTER FOR THERAPEUTIC DRUG LEVEL MON 05/21/2017 MEDARDO DUFFY MD Ot 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 05/21/2017 MEDARDO DUFFY MD, Ot Z12.31 ENCNTR SCREEN MAMMOGRAM FOR MALIGNANT NE 05/21/2017 JEN SANTIAGO MD Ot M25.811 OTHER SPECIFIED JOINT DISORDERS, RIGHT S 05/21/2017 JOSEE ESCOTO FACC, ROGER KIMP CCDS Ot E78.4 OTHER HYPERLIPIDEMIA 05/21/2017 JOSEE ESCOTO FACC, ALI FACP CCDS Ot I10 ESSENTIAL (PRIMARY) HYPERTENSION 05/21/2017 JOSEE ESCOTO FACC, ROGER FACP CCDS Ot J43.8 OTHER EMPHYSEMA 05/21/2017 JOSEE ESCOTO FACC, ROGER KIMP CCDS Ot R06.02 SHORTNESS OF BREATH 05/21/2017 ROGER TRIPP MD, FACCP CCDS Ot Z72.0 TOBACCO USE 05/22/2017 JEN [...] OTHER ORTHOPEDIC AFTERCARE 06/01/2017 JOSEE ESCOTO FACC, ROGER KIMP CCDS Ot E78.4 OTHER HYPERLIPIDEMIA 06/01/2017 JOSEE ESCOTO FACC, ALI FACP CCDS Ot I10 ESSENTIAL (PRIMARY) HYPERTENSION 06/01/2017 JOSEE MD FACC, ALI FACP CCDS Ot J43.8 OTHER EMPHYSEMA 06/01/2017 JOSEE ESCOTO FACC, ALI FACP CCDS Ot R06.02 SHORTNESS OF BREATH 06/01/2017 JOSEE ESCOTO FACC, ALI FACP CCDS [...] R06.02 SHORTNESS OF BREATH 06/08/2017 JOSEE ESCOTO [facility], ALI FACP CCDS Ot Z72.0 TOBACCO USE [...] LEFT HEEL AND MIDFO 07/03/2017 SOSA RESENDIZ MD Ot T65.222D TOXIC EFFECT OF TOBACCO CIGARETTES, SELF 07/09/2017 JEN SANTIAGO MD Ot M25.512 PAIN IN LEFT SHOULDER 07/09/2017 JEN SANTIAGO MD Ot Z47.89 ENCOUNTER FOR OTHER ORTHOPEDIC AFTERCARE 07/10/2017 JEN SANTIAGO MD, Ot M25.512 PAIN IN LEFT SHOULDER 07/10/2017 JEN SANTIAGO MD Ot Z47.89 ENCOUNTER FOR OTHER ORTHOPEDIC AFTERCARE 07/11/2017 JEN SANTIAGO MD Ot M25.512 PAIN IN LEFT SHOULDER 07/11/2017 JEN SANTIAGO MD Ot Z47.89 ENCOUNTER FOR OTHER ORTHOPEDIC AFTERCARE 07/11/2017 JEN SANTIAGO MD Ot M25.512 PAIN IN LEFT SHOULDER 07/11/2017 JEN SANTIAGO MD Ot Z47.89 ENCOUNTER FOR OTHER ORTHOPEDIC AFTERCARE 07/19/2017 GERMAN HENDERSON MD Ot E78.00 PURE HYPERCHOLESTEROLEMIA, UNSPECIFIED 07/19/2017 GERMAN HENDERSON MD Ot F15.10 OTHER STIMULANT ABUSE, UNCOMPLICATED 07/19/2017 GERMAN HENDERSON MD Ot F17.210 NICOTINE DEPENDENCE, CIGARETTES, UNCOMPL 07/19/2017 GERMAN HENDERSON MD Ot F41.9 ANXIETY DISORDER, UNSPECIFIED 07/19/2017 GERMAN HENDERSON MD Ot G47.30 SLEEP APNEA, UNSPECIFIED 07/19/2017 GERMAN HENDERSON MD Ot I10 ESSENTIAL (PRIMARY) HYPERTENSION 07/19/2017 GERMAN HENDERSON MD Ot J44.1 CHRONIC OBSTRUCTIVE PULMONARY DISEASE W 07/19/2017 GERMAN HENDERSON MD Ot K21.9 GASTRO-ESOPHAGEAL REFLUX DISEASE WITHOUT 07/19/2017 GERMAN HENDERSON MD Ot R10.13 EPIGASTRIC PAIN 07/19/2017 GERMAN HENDERSON MD Ot Z87.448 PERSONAL HISTORY OF OTHER DISEASES OF UR 07/19/2017 GERMAN HENDERSON MD, Ot Z88.2 ALLERGY STATUS TO SULFONAMIDES STATUS 07/19/2017 GERMAN HENDERSON MD, Ot Z88.5 ALLERGY STATUS TO NARCOTIC AGENT STATUS 07/19/2017 GERMAN HENDERSON MD, Ot Z88.8 ALLERGY STATUS TO OTH DRUG/MEDS/BIOL SUB 07/19/2017 GERMAN HENDERSON MD, Ot Z90.710 ACQUIRED ABSENCE OF BOTH CERVIX AND UTER 07/19/2017 GERMAN HENDERSON MD Ot Z96.651 PRESENCE OF RIGHT ARTIFICIAL KNEE JOINT 07/23/2017 GERMAN HENDERSON MD Ot E78.00 PURE HYPERCHOLESTEROLEMIA, UNSPECIFIED 07/23/2017 GERMAN HENDERSON MD Ot F15.10 OTHER STIMULANT ABUSE, UNCOMPLICATED 07/23/2017 GERMAN HENDERSON MD Ot F17.210 NICOTINE DEPENDENCE, CIGARETTES, UNCOMPL 07/23/2017 GERMAN HENDERSON MD Ot F41.9 ANXIETY DISORDER, UNSPECIFIED 07/23/2017 GERMAN HENDERSON MD Ot G47.30 SLEEP APNEA, UNSPECIFIED 07/23/2017 GERMAN HENDERSON MD Ot I10 ESSENTIAL (PRIMARY) HYPERTENSION 07/23/2017 GERMAN HENDERSON MD Ot J44.1 CHRONIC OBSTRUCTIVE PULMONARY DISEASE W 07/23/2017 GERMAN HENDERSON MD Ot K21.9 GASTRO-ESOPHAGEAL REFLUX DISEASE WITHOUT 07/23/2017 GERMAN HENDERSON MD Ot R10.13 EPIGASTRIC PAIN 07/23/2017 GERMAN HENDERSON MD Ot Z87.448 PERSONAL HISTORY OF OTHER DISEASES OF UR 07/23/2017 GERMAN HENDERSON MD, Ot Z88.2 ALLERGY STATUS TO SULFONAMIDES STATUS 07/23/2017 GERMAN HENDERSON MD Ot Z88.5 ALLERGY STATUS TO NARCOTIC AGENT STATUS 07/23/2017 GERMAN HENDERSON MD Ot Z88.8 ALLERGY STATUS TO OTH DRUG/MEDS/BIOL SUB 07/23/2017 GERMAN HENDERSON MD Ot Z90.710 ACQUIRED ABSENCE OF BOTH CERVIX AND UTER 07/23/2017 GERMAN HENDERSON MD Ot Z96.651 PRESENCE OF RIGHT ARTIFICIAL KNEE JOINT 08/02/2017 JEN SANTIAGO MD Ot M25.512 PAIN IN LEFT SHOULDER 08/02/2017 JEN SANTIAGO MD Ot Z47.89 ENCOUNTER FOR OTHER ORTHOPEDIC AFTERCARE 08/27/2017 JEN SANTIAGO MD Ot M25.512 PAIN IN LEFT SHOULDER 08/27/2017 JEN SANTIAGO MD Ot Z47.89 ENCOUNTER FOR OTHER ORTHOPEDIC AFTERCARE 08/28/2017 JEN SANTIAGO MD Ot M25.512 PAIN IN LEFT SHOULDER 08/28/2017 JEN SANTIAGO MD Ot Z47.89 ENCOUNTER FOR OTHER ORTHOPEDIC AFTERCARE 08/28/2017 JEN SANTIAGO MD Ot M25.512 PAIN IN LEFT SHOULDER 08/28/2017 JEN SANTIAGO MD Ot Z47.89 ENCOUNTER FOR OTHER ORTHOPEDIC AFTERCARE 09/05/2017 JEN SANTIAGO MD Ot M25.512 PAIN IN LEFT SHOULDER 09/05/2017 JEN SANTIAGO MD Ot Z47.89 ENCOUNTER FOR OTHER ORTHOPEDIC AFTERCARE 09/20/2017 JEN SANTIAGO MD Ot M25.512 PAIN IN LEFT SHOULDER 09/20/2017 JEN SANTIAGO MD Ot Z47.89 ENCOUNTER FOR OTHER ORTHOPEDIC AFTERCARE 10/08/2017 JEN SANTIAGO MD Ot M25.512 PAIN IN LEFT SHOULDER 10/08/2017 JEN SANTIAGO MD Ot M25.612 STIFFNESS OF LEFT SHOULDER, NOT ELSEWHER 10/08/2017 JEN SANTIAGO MD Ot Z47.89 ENCOUNTER FOR OTHER ORTHOPEDIC AFTERCARE 10/12/2017 JEN SANTIAGO MD Ot M25.512 PAIN IN LEFT SHOULDER 10/12/2017 JEN SANTIAGO MD Ot M25.612 STIFFNESS OF LEFT SHOULDER, NOT ELSEWHER 10/12/2017 JEN SANTIAGO MD Ot Z47.89 ENCOUNTER FOR OTHER ORTHOPEDIC AFTERCARE 11/09/2017 JEN SANTIAGO MD Ot M25.512 PAIN IN LEFT SHOULDER 11/09/2017 JEN SANTIAGO MD, Ot M25.612 STIFFNESS OF LEFT SHOULDER, NOT ELSEWHER 11/09/2017 JEN SANTIAGO MD Ot Z47.89 ENCOUNTER FOR OTHER ORTHOPEDIC AFTERCARE 02/26/2018 RASHEED RAHAMN Ot V76.12 OTH SCREEN MAMMO-MALIGN NEOPLASM OF SAMANTHA 02/26/2018 RASHEED RAHMAN Ot V76.12 OTH SCREEN MAMMO-MALIGN NEOPLASM OF SAMANTHA 02/26/2018 SAMEERA ESCOTO, JAMIE Ot V72.84 EXAM PRE-OPERATIVE NOS 02/26/2018 SOSA GUSMAN MD Ot 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 PATELLAE 02/26/2018 SOSA GUSMAN MD Ot V72.84 EXAM PRE-OPERATIVE NOS 02/26/2018 SOSA GUSMAN MD Ot V74.8 SCREEN-BACTERIAL DIS NEC 02/26/2018 NESS ESCOTO, SOSA Shelby Ot 727.61 ROTATOR CUFF RUPTURE 02/26/2018 KAREN ESCOTO, RYAN Moeller Ot 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 02/26/2018 RYAN JONES MD Ot 788.30 UNSPECIFIED URINARY INCONTINENCE 02/26/2018 RYAN JONES MD Ot V72.84 EXAM PRE-OPERATIVE NOS 02/26/2018 KAREN ESCOTO, RYAN Moeller Ot V74.8 SCREEN-BACTERIAL DIS NEC 02/26/2018 TRAVISLENDER DO, MORAIMA Moeller Ot 719.46 JOINT PAIN-L/LEG 02/26/2018 MAXIMUSDER DO, MORAIMA Moeller Ot 724.2 LUMBAGO 02/26/2018 BERT DO, MORAIMA Moeller Ot 959.7 LOWER LEG INJURY NOS 02/26/2018 BERT HDEZ, MORAIMA Moeller Ot E000.8 OTHER EXTERNAL CAUSE STATUS 02/26/2018 MORAIMA ONEL DO Ot E849.0 ACCIDENT IN HOME 02/26/2018 BERT HDEZ, MORAIMA Moeller Ot E888.9 FALL NOS 02/26/2018 BERT HDEZ, MORAIMA Moeller Ot 789.01 ABDOMINAL PAIN, RIGHT UPPER QUADRANT 02/26/2018 BERT HDEZ, MORAIMA Moeller Ot 575.8 DIS OF GALLBLADDER NEC 02/26/2018 RUFINA ESCOTO, NARAYAN Marr Ot 575.8 DIS OF GALLBLADDER NEC 02/26/2018 RUFINA ESCOTO, NARAYAN Marr Ot V72.63 PRE-PROCEDURAL LABORATORY EXAMINATION 02/26/2018 RUFINA ESCOTO, NARAYAN Marr Ot V72.81 [id number] CARDIOVASCULAR 02/26/2018 RUFINA ESCOTO, NARAYAN Marr Ot V74.8 SCREEN-BACTERIAL DIS NEC 02/26/2018 NESS ESCOTO, SOSA Shelby Ot 715.31 LOC OSTEOARTH NOS-SHLDER 02/26/2018 NESS ESCOTO, SOSA Shelby Ot 727.61 ROTATOR CUFF RUPTURE 02/26/2018 NESS ESCOTO, SOSA Shelby Ot 840.7 (SLAP) SUPERIOR GLENOID LABRUM LESIONS 02/26/2018 SOSA GUSMAN MD Ot V72.83 EXAM PRE-OPERATIVE NEC 02/26/2018 Ot G56.02 CARPAL TUNNEL SYNDROME, LEFT UPPER LIMB 02/26/2018 Ot Z01.818 ENCOUNTER FOR OTHER PREPROCEDURAL EXAMIN 02/26/2018 Ot Z11.2 ENCOUNTER FOR SCREENING FOR OTHER BACTER 02/26/2018 RASHEED RAHMAN Ot Z12.31 ENCNTR SCREEN MAMMOGRAM FOR MALIGNANT NE 02/26/2018 MORAIMA NOEL DO Ot Z13.89 ENCOUNTER FOR SCREENING FOR OTHER DISORD 02/26/2018 SOSA GUSMAN MD Ot G56.01 CARPAL TUNNEL SYNDROME, RIGHT UPPER LIMB 02/26/2018 SOSA GUSMAN MD Ot Z01.818 ENCOUNTER FOR OTHER PREPROCEDURAL EXAMIN 02/26/2018 MORAIMA NOEL DO Ot J40 BRONCHITIS, NOT SPECIFIED ACUTE OR CH 02/26/2018 MORAIMA NOEL DO Ot J44.9 CHRONIC OBSTRUCTIVE PULMONARY DISEASE, U 02/26/2018 MORAIMA NOEL DO Ot N39.0 URINARY TRACT INFECTION, SITE NOT SPECIF 02/26/2018 DINO TILLMAN Ot R22.31 LOCALIZED SWELLING, MASS AND LUMP, RIGHT 02/26/2018 RASHEED RAHMAN Ot Z12.31 ENCNTR SCREEN MAMMOGRAM FOR MALIGNANT NE 02/26/2018 SOSA GUSMAN MD Ot M75.121 COMPLETE ROTATR-CUFF TEAR/RUPTR OF R JOSSY 02/26/2018 CLIVE ESCOTO, MEDARDO Chowdhury Ot Z51.81 ENCOUNTER FOR THERAPEUTIC DRUG LEVEL MON 02/26/2018 MEDARDO DUFFY MD Ot 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 02/26/2018 MEDARDO DUFFY MD Ot Z12.31 ENCNTR SCREEN MAMMOGRAM FOR MALIGNANT NE 02/26/2018 PAMELA ESCOTO, JEN Zhong Ot M25.811 OTHER SPECIFIED JOINT DISORDERS, RIGHT S 02/26/2018 JOSEE ESCOTO FACC, ALI FACP CCDS Ot E78.4 OTHER HYPERLIPIDEMIA 02/26/2018 JOSEE ESCOTO FACC, ALI FACP CCDS Ot I10 ESSENTIAL (PRIMARY) HYPERTENSION 02/26/2018 JOSEE ESCOTO FACC, ALI FACP CCDS Ot J43.8 OTHER EMPHYSEMA 02/26/2018 JOSEE ESCOTO FACC, ALI FACP CCDS Ot R06.02 SHORTNESS OF BREATH 02/26/2018 JOSEE ESCOTO FACC, ALI FACP CCDS Ot Z72.0 TOBACCO USE 02/26/2018 SOSA RESENDIZ MD Ot 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 02/26/2018 SOSA RESENDIZ MD Ot T65.222D TOXIC EFFECT OF TOBACCO CIGARETTES, SELF 02/26/2018 SOSA RESENDIZ MD Ot 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 02/26/2018 SOSA RESENDIZ MD Ot T65.222D TOXIC EFFECT OF TOBACCO CIGARETTES, SELF 02/26/2018 BAIMA, COURTNEY L LOCOMOTIVE PIPE FITTER Ot 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 02/26/2018 BAIMA, COURTNEY L LOCOMOTIVE PIPE FITTER Ot 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 02/26/2018 BAIMA, COURTNEY L LOCOMOTIVE PIPE FITTER Ot 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 02/26/2018 RASHEED RAHMAN LOCOMOTIVE PIPE FITTER Ot V76.12 OTH SCREEN MAMMO-MALIGN NEOPLASM OF SAMANTHA 02/26/2018 RASHEED RAHMAN Ot V76.12 OTH SCREEN MAMMO-MALIGN NEOPLASM OF SAMANTHA 02/26/2018 SAMEERA ESCOTO, JAMIE Ot V72.84 EXAM PRE-OPERATIVE NOS 02/26/2018 SOSA GUSMAN MD Ot 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 PATELLAE 02/26/2018 SOSA GUSMAN MD Ot V72.84 EXAM PRE-OPERATIVE NOS 02/26/2018 SOSA GUSMAN MD Ot V74.8 SCREEN-BACTERIAL DIS NEC 02/26/2018 SOSA GUSMAN MD Ot 727.61 ROTATOR CUFF RUPTURE 02/26/2018 RYAN JONES MD Ot 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 02/26/2018 RYAN JONES MD Ot 788.30 UNSPECIFIED URINARY INCONTINENCE 02/26/2018 RYAN JONES MD Ot V72.84 EXAM PRE-OPERATIVE NOS 02/26/2018 RYAN JONES MD Ot V74.8 SCREEN-BACTERIAL DIS NEC 02/26/2018 MORAIMA NOEL DO Ot 719.46 JOINT PAIN-L/LEG 02/26/2018 MORAIMA NOEL DO Ot 724.2 LUMBAGO 02/26/2018 MORAIMA NOEL DO Ot 959.7 LOWER LEG INJURY NOS 02/26/2018 BERT HDEZ MORAIMA Moeller Ot E000.8 OTHER EXTERNAL CAUSE STATUS 02/26/2018 BERT HDEZ MORAIMA Moeller Ot E849.0 ACCIDENT IN HOME 02/26/2018 BERT HDEZMORAIMA Ot E888.9 FALL NOS 02/26/2018 BERT HDEZ MORAIMA Moeller Ot 789.01 ABDOMINAL PAIN, RIGHT UPPER QUADRANT 02/26/2018 BERT HDEZMORAIMA Ot 575.8 DIS OF GALLBLADDER NEC 02/26/2018 RUFINA ESCOTO, NARAYAN Marr Ot 575.8 DIS OF GALLBLADDER NEC 02/26/2018 RUFINA ESCOTO, NARAYAN Marr Ot V72.63 PRE-PROCEDURAL LABORATORY EXAMINATION 02/26/2018 RUFINA ESCOTO, NARAYAN Marr Ot V72.81 [id number] CARDIOVASCULAR 02/26/2018 RUFINA ESCOTO, NARAYAN Marr Ot V74.8 SCREEN-BACTERIAL DIS NEC 02/26/2018 NESS ESCOTO, SOSA Shelby Ot 715.31 LOC OSTEOARTH NOS-SHLDER 02/26/2018 NESS ESCOTO, SOSA Shelby Ot 727.61 ROTATOR CUFF RUPTURE 02/26/2018 NESS ESCOTO, SOSA Shelby Ot 840.7 (SLAP) SUPERIOR GLENOID LABRUM LESIONS 02/26/2018 SOSA GUSMAN MD Ot V72.83 EXAM PRE-OPERATIVE NEC 02/26/2018 Ot G56.02 CARPAL TUNNEL SYNDROME, LEFT UPPER LIMB 02/26/2018 Ot Z01.818 ENCOUNTER FOR OTHER PREPROCEDURAL EXAMIN 02/26/2018 Ot Z11.2 ENCOUNTER FOR SCREENING FOR OTHER BACTER 02/26/2018 RASHEED RAHMAN Ot Z12.31 ENCNTR SCREEN MAMMOGRAM FOR MALIGNANT NE 02/26/2018 BERT HDEZMORAIMA Ot Z13.89 ENCOUNTER FOR SCREENING FOR OTHER DISORD 02/26/2018 NESS ESCOTO, SOSA Shelby Ot G56.01 CARPAL TUNNEL SYNDROME, RIGHT UPPER LIMB 02/26/2018 NESS ESCOTO, SOSA Shelby Ot Z01.818 ENCOUNTER FOR OTHER PREPROCEDURAL EXAMIN 02/26/2018 BERT HDEZMORAIMA Ot J40 BRONCHITIS, NOT SPECIFIED ACUTE OR CH 02/26/2018 BERT HDEZMORAIMA Ot J44.9 CHRONIC OBSTRUCTIVE PULMONARY DISEASE, U 02/26/2018 GELLENDER MORAIMA HDEZ Ot N39.0 URINARY TRACT INFECTION, SITE NOT SPECIF 02/26/2018 DINO TILLMAN LOCOMOTIVE PIPE FITTER Ot R22.31 LOCALIZED SWELLING, MASS AND LUMP, RIGHT 02/26/2018 RASHEED RAHMAN Ot Z12.31 ENCNTR SCREEN MAMMOGRAM FOR MALIGNANT NE 02/26/2018 NESS ESCOTO, SOSA Shelby Ot M75.121 COMPLETE ROTATR-CUFF TEAR/RUPTR OF R JOSSY 02/26/2018 MEDARDO DUFFY MD Ot Z51.81 ENCOUNTER FOR THERAPEUTIC DRUG LEVEL MON 02/26/2018 MEDARDO DUFFY MD Ot 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 02/26/2018 MEDARDO DUFFY MD Ot Z12.31 ENCNTR SCREEN MAMMOGRAM FOR MALIGNANT NE 02/26/2018 PAMELA ESCOTO, JEN Zhong Ot M25.811 OTHER SPECIFIED JOINT DISORDERS, RIGHT S 02/26/2018 JOSEE ESCOTO FACC, ALI FACP CCDS Ot E78.4 OTHER HYPERLIPIDEMIA 02/26/2018 JOSEE ESCOTO FACC, ALI FACP CCDS Ot I10 ESSENTIAL (PRIMARY) HYPERTENSION 02/26/2018 JOSEE ESCOTO FACC, ALI FACP CCDS Ot J43.8 OTHER EMPHYSEMA 02/26/2018 JOSEE ESCOTO FACC, ALI FACP CCDS Ot R06.02 SHORTNESS OF BREATH 02/26/2018 JOSEE ESCOTO FACC, ALI FACP CCDS Ot Z72.0 TOBACCO USE 02/26/2018 SOSA RESENDIZ MD Ot 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 02/26/2018 SOSA RESENDIZ MD Ot T65.222D TOXIC EFFECT OF TOBACCO CIGARETTES, SELF 02/26/2018 SOSA RESENDIZ MD Ot 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 02/26/2018 SOSA RESENDIZ MD Ot T65.222D TOXIC EFFECT OF TOBACCO CIGARETTES, SELF 02/26/2018 COURTNEY HONG Ot 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 02/28/2018 RASHEED RAHMAN Ot V76.12 OTH SCREEN MAMMO-MALIGN NEOPLASM OF SAMANTHA 02/28/2018 RASHEED RAHMAN Ot V76.12 OTH SCREEN MAMMO-MALIGN NEOPLASM OF SAMANTHA 02/28/2018 SAMEERA ESCOTO, JAMIE Ot V72.84 EXAM PRE-OPERATIVE NOS 02/28/2018 NESS ESCOTO, SOSA Shelby Ot 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 PATELLAE 02/28/2018 NESS ESCOTO, SOSA Shelby Ot V72.84 EXAM PRE-OPERATIVE NOS 02/28/2018 NESS ESCOTO, SOSA Shelby Ot V74.8 SCREEN-BACTERIAL DIS NEC 02/28/2018 NESS ESCOTO, SOSA Shelby Ot 727.61 ROTATOR CUFF RUPTURE 02/28/2018 KAREN ESCOTO, RYAN Moeller Ot 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 02/28/2018 KAREN ESCOTO, RYAN Moeller Ot 788.30 UNSPECIFIED URINARY INCONTINENCE 02/28/2018 KAREN ESCOTO, RYAN Moeller Ot V72.84 EXAM PRE-OPERATIVE NOS 02/28/2018 KAREN ESCOTO, RYAN Moeller Ot V74.8 SCREEN-BACTERIAL DIS NEC 02/28/2018 GELLENDER DO, MORAIMA A Ot 719.46 JOINT PAIN-L/LEG 02/28/2018 GELLENDER DO, MORAIMA A Ot 724.2 LUMBAGO 02/28/2018 GELLENDER DO, MORAIMA A Ot 959.7 LOWER LEG INJURY NOS 02/28/2018 GELLENDER DO, MORAIMA A Ot E000.8 OTHER EXTERNAL CAUSE STATUS 02/28/2018 TRAVISLENDER DO, MORAIMA A Ot E849.0 ACCIDENT IN HOME 02/28/2018 TRAVISLENDER DO, MORAIMA A Ot E888.9 FALL NOS 02/28/2018 BERT DO, MORAIMA A Ot 789.01 ABDOMINAL PAIN, RIGHT UPPER QUADRANT 02/28/2018 GELLENDER DO, MORAIMA A Ot 575.8 DIS OF GALLBLADDER NEC 02/28/2018 RUFINA ESCOTO, NARAYAN Marr Ot 575.8 DIS OF GALLBLADDER NEC 02/28/2018 RUFINA ESCOTO, NARAYAN Marr Ot V72.63 PRE-PROCEDURAL LABORATORY EXAMINATION 02/28/2018 RUFINA ESCOTO, NARAYAN Marr Ot V72.81 [id number] CARDIOVASCULAR 02/28/2018 RUFINA ESCOTO, NARAYAN Marr Ot V74.8 SCREEN-BACTERIAL DIS NEC 02/28/2018 NESS ESCOTO, SOSA Shelby Ot 715.31 LOC OSTEOARTH NOS-SHLDER 02/28/2018 NESS ECSOTO, SOSA Shelby Ot 727.61 ROTATOR CUFF RUPTURE 02/28/2018 SOSA GUSMAN MD Ot 840.7 (SLAP) SUPERIOR GLENOID LABRUM LESIONS 02/28/2018 SOSA GUSMAN MD Ot V72.83 EXAM PRE-OPERATIVE NEC 02/28/2018 Ot G56.02 CARPAL TUNNEL SYNDROME, LEFT UPPER LIMB 02/28/2018 Ot Z01.818 ENCOUNTER FOR OTHER PREPROCEDURAL EXAMIN 02/28/2018 Ot Z11.2 ENCOUNTER FOR SCREENING FOR OTHER BACTER 02/28/2018 RASHEED RAHMAN Ot Z12.31 ENCNTR SCREEN MAMMOGRAM FOR MALIGNANT NE 02/28/2018 MORAIMA NOEL DO Ot Z13.89 ENCOUNTER FOR SCREENING FOR OTHER DISORD 02/28/2018 SOSA GUSMAN MD Ot G56.01 CARPAL TUNNEL SYNDROME, RIGHT UPPER LIMB 02/28/2018 SOSA GUSMAN MD Ot Z01.818 ENCOUNTER FOR OTHER PREPROCEDURAL EXAMIN 02/28/2018 MORAIMA NOEL DO Ot J40 BRONCHITIS, NOT SPECIFIED ACUTE OR CH 02/28/2018 MORAIMA NOEL DO Ot J44.9 CHRONIC OBSTRUCTIVE PULMONARY DISEASE, U 02/28/2018 MORAIMA NOEL DO Ot N39.0 URINARY TRACT INFECTION, SITE NOT SPECIF 02/28/2018 DINO TILLMAN Ot R22.31 LOCALIZED SWELLING, MASS AND LUMP, RIGHT 02/28/2018 RASHEED RAHMAN Ot Z12.31 ENCNTR SCREEN MAMMOGRAM FOR MALIGNANT NE 02/28/2018 SOSA GUSMAN MD Ot M75.121 COMPLETE ROTATR-CUFF TEAR/RUPTR OF R JOSSY 02/28/2018 MEDARDO DUFFY MD Ot Z51.81 ENCOUNTER FOR THERAPEUTIC DRUG LEVEL MON 02/28/2018 MEDARDO DUFFY MD Ot 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 02/28/2018 MEDARDO DUFFY MD Ot Z12.31 ENCNTR SCREEN MAMMOGRAM FOR MALIGNANT NE 02/28/2018 PAMELA ESCOTO, JEN Zhong Ot M25.811 OTHER SPECIFIED JOINT DISORDERS, RIGHT S 02/28/2018 JOSEE ESCOTO FACC, ALI FACP CCDS Ot E78.4 OTHER HYPERLIPIDEMIA 02/28/2018 JOSEE ESCOTO FACC, ALI FACP CCDS Ot I10 ESSENTIAL (PRIMARY) HYPERTENSION 02/28/2018 JOSEE ESCOTO [facility], [facility] CCDS Ot J43.8 OTHER EMPHYSEMA 02/28/2018 JOSEE ESCOTO [facility], [facility] CCDS Ot R06.02 SHORTNESS OF BREATH 02/28/2018 JOSEE ESCOTO [facility] CCDS Ot Z72.0 TOBACCO USE 02/28/2018 SOSA RESENDIZ MD Ot 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 02/28/2018 SOSA RESENDIZ MD Ot T65.222D TOXIC EFFECT OF TOBACCO CIGARETTES, SELF 02/28/2018 SOSA RESENDIZ MD Ot 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 02/28/2018 SOSA RESENDIZ MD Ot T65.222D TOXIC EFFECT OF TOBACCO CIGARETTES, SELF 02/28/2018 COURTNEY HONG Evan LOCOMOTIVE PIPE FITTER Ot 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 03/05/2018 RASHEED RAHMANP Ot V76.12 OTH SCREEN MAMMO-MALIGN NEOPLASM OF SAMANTHA 03/05/2018 RASHEED RAHMANP Ot V76.12 OTH SCREEN MAMMO-MALIGN NEOPLASM OF SAMANTHA 03/05/2018 SAMEERA ESCOTO, JAMIE Ot V72.84 EXAM PRE-OPERATIVE NOS 03/05/2018 SOSA GUSMAN MD Ot 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 PATELLAE 03/05/2018 SOSA GUSMAN MD Ot V72.84 EXAM PRE-OPERATIVE NOS 03/05/2018 SOSA GUSMAN MD Ot V74.8 SCREEN-BACTERIAL DIS NEC 03/05/2018 SOSA GUSMAN MD Ot 727.61 ROTATOR CUFF RUPTURE 03/05/2018 RYAN JONES MD Ot 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 03/05/2018 RYAN JONES MD Ot 788.30 UNSPECIFIED URINARY INCONTINENCE 03/05/2018 RYAN JONES MD Ot V72.84 EXAM PRE-OPERATIVE NOS 03/05/2018 RYAN JONES MD Ot V74.8 SCREEN-BACTERIAL DIS NEC 03/05/2018 MORAIMA NOEL DO Ot 719.46 JOINT PAIN-L/LEG 03/05/2018 MORAIMA NOEL DO Ot 724.2 LUMBAGO 03/05/2018 MORAIMA NOEL DO Ot 959.7 LOWER LEG INJURY NOS 03/05/2018 MORAIMA NOEL DO Ot E000.8 OTHER EXTERNAL CAUSE STATUS 03/05/2018 MORAIMA NOEL DO Ot E849.0 ACCIDENT IN HOME 03/05/2018 MORAIMA NOEL DO Ot E888.9 FALL NOS 03/05/2018 MORAIMA NOEL DO Ot 789.01 ABDOMINAL PAIN, RIGHT UPPER QUADRANT 03/05/2018 MORAIMA NOEL DO Ot 575.8 DIS OF GALLBLADDER NEC 03/05/2018 RUFINA ESCOTO, NARAYAN Marr Ot 575.8 DIS OF GALLBLADDER NEC 03/05/2018 RUFINA ESCOTO, NARAYAN Marr Ot V72.63 PRE-PROCEDURAL LABORATORY EXAMINATION 03/05/2018 RUFINA ESCOTO, NARAYAN Marr Ot V72.81 HRVB-YBS-ZVEEZQEIA CARDIOVASCULAR 03/05/2018 RUFINA ESCOTO, NARAYAN Marr Ot V74.8 SCREEN-BACTERIAL DIS NEC 03/05/2018 NESS ESCOTO, SOSA Shelby Ot 715.31 LOC OSTEOARTH NOS-SHLDER 03/05/2018 NESS ESCOTO, SOSA Shelby Ot 727.61 ROTATOR CUFF RUPTURE 03/05/2018 NESS ESCOTO, SOSA Shelby Ot 840.7 (SLAP) SUPERIOR GLENOID LABRUM LESIONS 03/05/2018 NESS ESCOTO, SOSA Shelby Ot V72.83 EXAM PRE-OPERATIVE NEC 03/05/2018 Ot G56.02 CARPAL TUNNEL SYNDROME, LEFT UPPER LIMB 03/05/2018 Ot Z01.818 ENCOUNTER FOR OTHER PREPROCEDURAL EXAMIN 03/05/2018 Ot Z11.2 ENCOUNTER FOR SCREENING FOR OTHER BACTER 03/05/2018 RASHEED RAHMAN Ot Z12.31 ENCNTR SCREEN MAMMOGRAM FOR MALIGNANT NE 03/05/2018 MORAIMA NOEL DO Ot Z13.89 ENCOUNTER FOR SCREENING FOR OTHER DISORD 03/05/2018 NESS ESCOTO, SOSA Shelby Ot G56.01 CARPAL TUNNEL SYNDROME, RIGHT UPPER LIMB 03/05/2018 NESS ESCOTO, SOSA Shelby Ot Z01.818 ENCOUNTER FOR OTHER PREPROCEDURAL EXAMIN 03/05/2018 MORAIMA NOEL DO Ot J40 BRONCHITIS, NOT SPECIFIED ACUTE OR CH 03/05/2018 MORAIMA NOEL DO Ot J44.9 CHRONIC OBSTRUCTIVE PULMONARY DISEASE, U 03/05/2018 MORAIMA NOEL DO Ot N39.0 URINARY TRACT INFECTION, SITE NOT SPECIF 03/05/2018 TILLMAN DINO Radu LOCOMOTIVE PIPE FITTER Ot R22.31 LOCALIZED SWELLING, MASS AND LUMP, RIGHT 03/05/2018 RASHEED RAHMAN LOCOMOTIVE PIPE FITTER Ot Z12.31 ENCNTR SCREEN MAMMOGRAM FOR MALIGNANT NE 03/05/2018 NESS ESCOTO, SOSA Shelby Ot M75.121 COMPLETE ROTATR-CUFF TEAR/RUPTR OF R JOSSY 03/05/2018 CLIVE ESCOTO, MEDARDO Chowdhury Ot Z51.81 ENCOUNTER FOR THERAPEUTIC DRUG LEVEL MON 03/05/2018 MEDARDO DUFFY MD Ot 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 03/05/2018 MEDARDO DUFFY MD Ot Z12.31 ENCNTR SCREEN MAMMOGRAM FOR MALIGNANT NE 03/05/2018 PAMELA ESCOTO, JEN Zhong Ot M25.811 OTHER SPECIFIED JOINT DISORDERS, RIGHT S 03/05/2018 JOSEE ESCOTO FACC, ALI FACP CCDS Ot E78.4 OTHER HYPERLIPIDEMIA 03/05/2018 JOSEE ESCOTO FACC, ALI FACP CCDS Ot I10 ESSENTIAL (PRIMARY) HYPERTENSION 03/05/2018 JOSEE ESCOTO FACC, ALI FACP CCDS Ot J43.8 OTHER EMPHYSEMA 03/05/2018 JOSEE ESCOTO FACC, ALI FACP CCDS Ot R06.02 SHORTNESS OF BREATH 03/05/2018 JOSEE ESCOTO FACC, ALI FACP CCDS Ot Z72.0 TOBACCO USE 03/05/2018 SOSA RESENDIZ MD Ot 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 03/05/2018 SOSA RESENDIZ MD Ot T65.222D TOXIC EFFECT OF TOBACCO CIGARETTES, SELF 03/05/2018 SOSA RESENDIZ MD Ot 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 03/05/2018 SOSA RESENDIZ MD Ot T65.222D TOXIC EFFECT OF TOBACCO CIGARETTES, SELF 03/05/2018 COURTNEY HONG Ot 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 03/05/2018 COURTNEY HONG Ot 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 Procedures Code Description Performed By Performed On 38.93 VENOUS CATHETERIZATION NEC 08/13/2011 81.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 10/23/2011 81252 XRAY KNEE RIGHT 1 OR 2 VIEWS 02/12/2013 Q0091 PAP SMEAR OBTAIN SMEAR 06/02/2013 10368 HEMOCCULT 06/02/2013 78372 PAP SMEAR 06/05/2013 55940 CULTURE WOUND (AEROBIC) 07/06/2013 49379 URINE DRUG SCREEN (IN-HOUSE ) 09/11/2013 83334 URINE METH/AMPHETAMINE GC/ MS 09/18/2013 78607 ROUTINE VENIPUNCTURE 11/17/2013 97090 CBC 11/17/2013 Orthopedi Sosa Gusman 11/20/2013 19051 HEMOCCULT 11/20/2013 63378 HEMOCCULT 11/20/2013 18731 XRAY KNEE LEFT, 1 OR 2 VIEWS 11/20/2013 17954 MAMMOGRAM, SCREENING 11/21/2013 71285 AMERITOX 11/21/2013 General S Darrel Love 11/21/2013 63098 ROUTINE VENIPUNCTURE 12/02/2013 78439 CBC 12/02/2013 5759867 GFR CALC (RESULT ONLY) 12/02/2013 24985 CMP 12/02/2013 28363 LIPID PANEL 12/02/2013 70914 XRAY FOOT LEFT COMP MIN 3 VIEWS 01/05/2014 Cardiolog Roger Tripp 01/05/2014 65586 XRAY FOOT RIGHT COMP MIN 3 VIEWS 01/05/2014 57995 UA W/ CULTURE IF INDICATED 01/05/2014 90958 CULTURE URINE 01/06/2014 70886 ROUTINE VENIPUNCTURE 03/19/2014 G0008 FLU ADMINISTRATION ( MEDICARE ONLY) 03/19/2014 86807 PULMONARY EDUCATION 03/19/2014 G0437 TOBACCO-USE TEST DESIGNER>10MIN 03/19/2014 0926773 GFR CALC (RESULT ONLY) 03/19/2014 92322 BMP 03/19/2014 92389 MAGNESIUM 03/19/2014 Physical Physical Therapy, [facility] 03/30/2014 32755 DEBRIDE NAIL >6 04/17/2014 10202 OXIMETRY 06/03/2014 15703 AMERITOX 07/08/2014 26PV86R INSERTION OF INFUSION DEV INTO SUP VENA 07/12/2016 Results Test Result Range Bacterial blood culture - 04/12/16 10:00 Bacterial blood culture NG NRG PT panel in platelet poor plasma by [...] 17:58 Bacteria identification in wound by culture [id number] NR QUANTITY OF GROWTH Scant Growth NR Whole blood basic metabolic panel - 07/13/16 [...] 09:37 Bacteria identification in wound by culture [id number] NRG FREE TEXT EXTERNAL (NOT JK) NRG QUANTITY [...] NRG Serum or plasma glucose measurement (mass/volume) 94 [...] FOR INFLUENZA A AND B ANTIGENS BY [facility] Complete blood count (CBC) with automated white [...] - 07/19/17 19:00 Lipase 21 U/L 8-78 TSH - 12/28/17 09:27 TSH 1.92 mIU/L NRG CBC - 01/28/18 10:19 WHITE BLOOD CELL COUNT 7.1 Thousand/uL 3.8-10.8 RED BLOOD CELL COUNT 4.61 Million/uL 3.80-5.10 HEMOGLOBIN 13.4 g/dL 11.7-15.5 HEMATOCRIT 40.5 % 35.0-45.0 MCV 87.9 fL 80.0-100.0 MCH 29.1 pg 27.0-33.0 MCHC 33.1 g/dL 32.0-36.0 RDW 14.1 % 11.0-15.0 PLATELET COUNT 153 Thousand/uL 140-400 MPV 12.1 fL 7.5-12.5 ABSOLUTE NEUTROPHILS 4494 cells/uL 9817-0854 ABSOLUTE LYMPHOCYTES 1711 cells/uL 850-3900 ABSOLUTE MONOCYTES 767 cells/uL 200-950 ABSOLUTE EOSINOPHILS 99 cells/uL 15-500 ABSOLUTE BASOPHILS 28 cells/uL 0-200 NEUTROPHILS 63.3 % NRG LYMPHOCYTES 24.1 % NRG MONOCYTES 10.8 % NRG EOSINOPHILS 1.4 % NRG BASOPHILS 0.4 % NRG Encounters ACCT No. Visit Date/Time Discharge Status Pt. Type Provider Facility Loc./Unit Complaint [id number] 07/06/2014 11:51:00 07/06/2014 23:59:59 [facility] Outpatient RASHEED RAHMAN APRN [id number] 06/03/2014 10:36:00 06/03/2014 23:59:59 CLS Outpatient JOSIAH DIE ATTACHERRASHEED [place] S [id number] 06/03/2014 10:36:00 06/03/2014 23:59:59 CLS Outpatient JOSIAH DIE ATTACHERNICOLAA S [id number] 04/17/2014 10:45:00 04/17/2014 23:59:59 CLS Outpatient JACK YUAN DO [id number] 03/19/2014 11:26:00 03/19/2014 23:59:59 CLS Outpatient JOSIAH DIE ATTACHERNAKIARASHEED S [id number] 01/22/2014 13:09:00 01/22/2014 23:59:59 CLS Outpatient ARIAS GRAJEDA MD [id number] 01/05/2014 09:23:00 01/05/2014 23:59:59 CLS Outpatient JOSIAH DIE ATTACHERNICOLAA S [id number] 01/05/2014 09:23:00 01/05/2014 23:59:59 CLS Outpatient JOSIAH DIE ATTACHERNICOLAA S [id number] 12/02/2013 11:14:00 12/02/2013 23:59:59 CLS Outpatient JOSIAH DIE ATTACHERNICOLAA S [id number] 11/20/2013 13:23:00 11/20/2013 23:59:59 CLS Outpatient JOSIAH DIE ATTACHERNICOLAA S [id number] 11/20/2013 13:23:00 11/20/2013 23:59:59 CLS Outpatient JOSIAH DIE ATTACHERNAKIARASHEED S [id number] 11/20/2013 12:59:00 11/20/2013 23:59:59 CLS Outpatient JACK YUAN DO [id number] 11/17/2013 10:47:00 11/17/2013 23:59:59 CLS Outpatient MADL DIE ATTACHERNANCY L [id number] 09/11/2013 08:36:00 09/11/2013 23:59:59 CLS Outpatient JOSIAH DIE ATTACHERNAKIARASHEED S [id number] 09/11/2013 08:36:00 09/11/2013 23:59:59 CLS Outpatient JOSIAH DIE ATTACHERNAKIARASHEED S [id number] 09/04/2013 15:45:00 09/04/2013 23:59:59 CLS Outpatient JACK YUAN DO [id number] 08/15/2013 08:26:00 08/15/2013 23:59:59 CLS Outpatient AMINA MATTHEWS MD [id number] 07/10/2013 13:22:00 07/10/2013 23:59:59 CLS Outpatient RASHEED RAHMAN APRN S [id number] 06/02/2013 09:17:00 06/02/2013 23:59:59 CLS Outpatient RASHEED RAHMAN APRN S [id number] 06/02/2013 09:17:00 06/02/2013 23:59:59 CLS Outpatient RASHEED RAHMAN APRN S [id number] 02/12/2013 13:47:00 02/12/2013 23:59:59 CLS Outpatient RASHEED RAHMNA APRN S [id number] 02/12/2013 13:47:00 02/12/2013 23:59:59 CLS Outpatient RASHEED RAHMAN APRN S [id number] 06/27/2012 09:44:00 06/27/2012 23:59:59 CLS Outpatient RASHEED RAHMAN APRN S [id number] 04/02/2012 09:21:00 04/02/2012 23:59:59 CLS Outpatient [id number] 04/02/2012 09:21:00 04/02/2012 23:59:59 CLS Outpatient RASHEED RAHMAN APRN S [id number] 01/07/2013 09:53:00 Document Registration [id number] 10/15/2012 10:07:00 Document Registration [id number] 01/16/2018 16:20:00 01/16/2018 23:59:59 CLS Outpatient THOMAS JENNINGS APRN [facility] [place] [id number] 01/28/2018 09:40:00 Document Registration [id number] 12/28/2017 09:00:00 Document Registration [id number] 03/05/2018 11:40:00 03/05/2018 23:59:59 CLS Outpatient COURTNEY HONG [facility] RAD I10 HTN [id number] 09/12/2017 08:19:00 11/09/2017 10:48:00 DIS Outpatient JEN SANTIAGO MD [facility] [id number] 08/23/2017 08:00:00 08/27/2017 00:01:00 DIS Outpatient JEN SANTIAGO MD [facility] REHAB LT SHOULDER RCR [id number] 07/19/2017 16:27:00 07/19/2017 20:52:00 DIS Emergency GERMAN HENDERSON MD [facility] ER VOMITING, CANT EAT [id number] 05/28/2017 10:12:00 05/28/2017 23:59:59 CLS Outpatient SOSA RESENDIZ MD [facility] WOUNDCARE [id number] 05/21/2017 08:43:00 05/21/2017 23:59:59 CLS Outpatient SOSA RESENDIZ MD [facility] WOUNDCARE [id number] 05/10/2017 07:08:00 05/10/2017 23:59:59 CLS Outpatient JOSEE ESCOTO FACC, ROGER MARIE CCDS [facility] CARD R06.02 SOB [id number] 05/08/2017 09:13:00 05/08/2017 23:59:59 CLS Outpatient MEDARDO DUFFY MD [facility] RAD SCREENING [id number] 05/01/2017 08:15:00 05/01/2017 23:59:59 CLS Outpatient JEN SANTIAGO MD [facility] LAB PRE OP LABS [id number] 11/22/2016 11:00:00 11/22/2016 23:59:59 CLS Preadmit SOSA GUSMAN MD [facility] RAD SHOULDER JOINT PAIN M25.512 [id number] 10/25/2016 09:50:00 10/25/2016 23:59:59 CLS Outpatient MEDARDO DUFFY MD [facility] LAB Z79.899 [id number] 09/08/2016 08:23:00 09/08/2016 14:54:00 DIS Outpatient SOSA RESENDIZ MD [facility] WOUNDCARE [id number] 07/29/2016 07:42:00 07/29/2016 23:59:59 CLS Outpatient SOSA GUSMAN MD [facility] RAD COMPLETE ROTATOR CUFF TEAR OR RUPTURE [id number] 07/12/2016 18:16:00 07/15/2016 13:40:00 DIS Inpatient LUZMA ESCOTO, YAMILET Guevara [facility] 4TH HYPOKALEMIA, NEUROTIC SKIN WOUND LEFT THIGH [id number] 04/12/2016 11:25:00 04/13/2016 16:00:00 DIS Inpatient LAURA ROBLERO MD [facility] ICU HYPOTENSION DIZZINESS ACUTE RENAL FAILURE [id number] 04/03/2016 09:24:00 04/03/2016 23:59:59 CLS Outpatient RASHEED RAHMAN [facility] RAD BREAST CANCER SCREENING [id number] 01/05/2016 10:45:00 02/21/2016 13:49:00 DIS Outpatient SOSA GUSMAN MD [facility] REHAB R SHOULDER SCOPE; BICEP TENOTOMY;DCE;SAD [id number] 01/12/2016 15:26:00 01/12/2016 23:59:59 CLS Outpatient DINO TILLMAN [facility] RAD R PROXIMAL FOREARM MAS [id number] 01/04/2016 09:53:00 01/04/2016 10:47:00 DIS Emergency LIBERTY SANDOVAL DIE ATTACHER [facility] ER BEE STING [id number] 12/27/2015 19:50:00 12/28/2015 05:30:00 DIS Outpatient RASHEED RAHMAN [facility] SLEEP SNORING,CHOKING/ GASPING,DAYTIME SLEEPINESS [id number] 12/08/2015 10:23:00 12/08/2015 15:32:00 DIS Outpatient SOSA GUSMAN MD [facility] SDC ARTHRITIS [id number] 11/25/2015 13:03:00 11/25/2015 13:32:00 DIS Outpatient SOSA GUSMAN MD [facility] PREOP ARTHRITIS [id number] 05/17/2015 10:40:00 05/17/2015 23:59:59 CLS Outpatient MORAIMA NOEL DO [facility] LAB INFECTION [id number] 04/30/2015 10:56:00 04/30/2015 23:59:59 CLS Outpatient MORAIMA NOEL DO [facility] RAD COPD,BRONCHITIS [id number] 04/21/2015 07:48:00 04/21/2015 11:40:00 DIS Outpatient SOSA GUSMAN MD [facility] RIGHT CARPAL TUNNEL SYNDROME [id number] 04/12/2015 08:19:00 04/12/2015 23:59:59 CLS Outpatient SOSA GUSMAN MD [facility] PREOP RIGHT CARPAL TUNNEL RELEASE [id number] 03/30/2015 10:44:00 03/30/2015 23:59:59 CLS Outpatient MORAIMA NOEL DO [facility] LAB CHECK FOR DRUGS [id number] 03/24/2015 09:00:00 03/24/2015 13:15:00 DIS Outpatient SOSA GUSMAN MD [facility] LEFT CARPAL TUNNEL SYNDROME [id number] 03/19/2015 10:46:00 03/19/2015 23:59:59 CLS Outpatient RASHEED RAHMAN [facility] RAD SCREENING [id number] 02/10/2015 10:43:00 02/10/2015 11:26:00 DIS Outpatient SOSA GUSMAN MD [facility] REHAB L SHOULDER; BICEP TENOTOMY; OPEN RC REPAIR [id number] 01/13/2015 06:00:00 01/13/2015 10:55:00 DIS Outpatient SOSA GUSMAN MD [facility] LEFT SHOULDER SLAP TEAR; ROTATOR CUFF TEAR [id number] 01/07/2015 09:59:00 01/07/2015 23:59:59 CLS Outpatient SOSA GUSMAN MD [facility] PREOP LEFT SHOULDER SLAP TEAR; ROTATOR CUFF TEAR [id number] 11/11/2014 08:36:00 11/11/2014 13:50:00 DIS Outpatient NARAYAN ALMARAZ MD [facility] DYSKNESIA [id number] 11/06/2014 12:39:00 11/06/2014 23:59:59 CLS Outpatient NARAYAN ALMARAZ MD [facility] PREOP DYSKNESIA [id number] 10/29/2014 09:26:00 10/29/2014 23:59:59 CLS Outpatient MORAIMA NOEL DO [facility] CARD PAIN IN RIGHT UPPER QUADRANT [id number] 10/22/2014 08:21:00 10/22/2014 23:59:59 CLS Outpatient MORAIMA NOEL DO [facility] RAD RUQ PAIN [id number] 10/12/2014 10:02:00 10/12/2014 23:59:59 CLS Outpatient BERT HDEZ MORAIMA Moeller [facility] RAD FELL RT KNEE PAIN, LOWER BACK PAIN [id number] 09/23/2014 06:00:00 09/23/2014 10:20:00 DIS Outpatient RYAN JONES MD [facility] INTRINSIC SPHINCTER DEFICIENCY; INCONTINENCE [id number] 09/16/2014 10:27:00 09/16/2014 23:59:59 CLS Outpatient RYAN JONES MD [facility] PREOP INTRINSIC SPHINCTER DEFICIENCY; INCONTINENCE [id number] 07/28/2014 09:04:00 07/28/2014 23:59:59 CLS Outpatient SOSA GUSMAN MD [facility] RAD LEFT SHOULDER RTC [id number] 04/10/2014 14:46:00 04/10/2014 15:58:00 DIS Emergency LIBERTY SANDOVAL APRN [facility] ER FEVER, SOA, DIARRHEA [id number] 04/07/2014 13:56:00 04/07/2014 17:00:00 DIS Outpatient RASHEED RAHMAN [facility] REHAB KNEE PAIN [id number] 03/04/2014 06:00:00 03/04/2014 10:10:00 DIS Outpatient SOSA GUSMAN MD [facility] LEFT KNEE CHONDROMALASIA [id number] 02/27/2014 11:49:00 02/27/2014 23:59:59 CLS Outpatient SOSA GUSMAN MD [facility] PREOP LEFT KNEE CHONDROMALASIA [id number] 02/10/2014 09:42:00 02/10/2014 17:00:00 DIS Outpatient JOSEE ESCOTO FACROGER Chowdhury FACP CCDS [facility] CATH ANGINA SOB DIZZINESS [id number] 02/03/2014 09:43:00 02/03/2014 23:59:59 CLS Outpatient RASHEED RAHMAN [facility] RAD SCREENING [id number] 01/30/2014 08:46:00 01/30/2014 23:59:59 CLS Outpatient JAMIE LOVE MD [facility] SDC RECTAL BLEEDING [id number] 01/29/2014 09:11:00 01/29/2014 23:59:59 CLS Outpatient JAMIE LOVE MD [facility] PREOP RECTAL BLEEDING [id number] 10/15/2013 08:45:00 10/31/2013 12:22:00 DIS Outpatient DINO TILLMAN [facility] REHAB B LE WEAKNESS;S/P R TKA ;SEVERE L DJD [id number] 01/09/2013 11:24:00 01/09/2013 23:59:59 CLS Outpatient RASHEED RAHMAN [facility] RAD SCREENING [id number] 03/17/2015 09:34:00 Document Registration [id number] 07/27/2014 13:00:00 Document Registration [id number] 01/15/2012 10:47:00 Document Registration [id number] 10/23/2011 05:44:00 Document Registration [id number] 10/20/2011 09:40:00 Document Registration [id number] 08/12/2011 21:58:00 Document Registration [id number] 05/12/2010 11:10:00 Document Registration [email or web address] 03/19/2015 10:47:36 ACT Document Registration
== END 2018-03-17 12:14 | disposition left against medical advice (07) ==
LOC: EDUNIT# 10:54 → ER 10:55
DX: T78.40XA Allergy, unspecified, initial encounter (principal); R06.02 Shortness of breath
CPT/HCPCS: 99281

== ENCOUNTER 2018-03-26 09:40 | Day surgery (SDC) | payer MEDICARE, MEDICAID ==
[2018-03-26] VITALS (12 sets, daily range): BP systolic 108–163; BP diastolic 45–93
[~2018-03-26] VITALS: Ht 160 cm; Wt 124.7 kg
[~2018-03-26 09:40] MED LIST changes: -ASPI-586 PO; -FLUO20CA42 PO; -HYDR50CA3 PO; -MELO7.5T46 PO; -NITR100C PO; -QUIN20TA16 PO
[2018-03-26] MEDS ORDERED: LIDOCAINE 1% INJ 20 ML 20 ML VIAL ONE (09:54)
[2018-03-26] MEDS ORDERED: NS IV 1000 ML 1,000 ML ONE (09:54)
[2018-03-26] MEDS ORDERED: HEParin (CATH LAB) 2,000 ML IV ONE (09:54)
--- OUTSIDE RECORDS SUMMARY | 2018-03-26 10:00 | XMS REPORT | Clinical Summary ---
Author Author [facility] Organization [facility] Address Unknown Phone Unavailable Care Team Providers Care Qa Tech Name Role Phone Sayra Nickerson MD Unavailable [...] in the Health Information Management department at [phone] for further assistance in locating additional records.[facility] Allergies Active Allergy Reactions Severity Noted Date [...] Taken Blood Pressure 128/75 04/13/2015 12:05 PM PRN PHYSICAL THERAPIST Pulse 81 04/13/2015 12:05 PM PRN PHYSICAL THERAPIST Temperature 36.5 C (97.7 F) 04/13/2015 12:05 PM PRN PHYSICAL THERAPIST Respiratory Rate 16 03/22/2015 3:32 PM CDT Oxygen Saturation 96% 04/13/2015 12:05 PM PRN PHYSICAL THERAPIST Inhaled Oxygen - - Concentration Weight 115 kg (253 lb 8.5 oz) 04/13/2015 9:11 AM PRN PHYSICAL THERAPIST Height 162.6 cm (5' 4") 04/13/2015 9:11 AM PRN PHYSICAL THERAPIST Body Mass Index 43.52 04/13/2015 9:11 AM PRN PHYSICAL THERAPIST Plan of Treatment Health Maintenance Due Date Last Done Comments HEPATITIS C SCREENING 1962 PHYSICAL (COMPREHENSIVE) 1969 EXAM PERTUSSIS VACCINE 1973 HIV SCREENING 1977 TETANUS VACCINE 1979 CERVICAL CANCER SCREENING 1992 BREAST CANCER SCREENING 2002 COLORECTAL CANCER 2012 SCREENING SHINGLES RECOMBINANT 2012 VACCINE (1 of 2) INFLUENZA VACCINE 01/09/2018 Results Not on filefrom Last 3 Months
--- OUTSIDE RECORDS SUMMARY | 2018-03-26 10:01 | XMS REPORT ---
Author Author THOMAS JENNINGS Organization [facility] Address [address] [place] [address] Care Team Providers Care Die Cast Die Maker Name Role Phone THOMAS JENNINGS Unavailable PROBLEMS Type Condition ICD9-CM Code [id number] Code Onset Dates Condition Status SNOMED Code Problem Mild chronic obstructive pulmonary disease J44.9 Active 933965191 Problem Essential hypertension I10 Active 54525844 Problem On home oxygen therapy Z99.81 Active 791833306727 Problem Exertional asthma J45.990 Active 03064427 Problem Snoring R06.83 Active 71884399 Problem COPD (chronic obstructive pulmonary disease) with chronic bronchitis J44.9 Active 463006587 Problem History of illicit drug use Z87.898 Active 235250938 Problem Major depressive disorder, recurrent episode, moderate F33.1 Active 380292429 Problem Neuropathy G62.9 Active 884300794 Problem COPD exacerbation J44.1 Active 218543655 Problem 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 Active 94265631 Problem Agoraphobia F40.00 Active 28158056 Problem Dysthymic disorder F34.1 Active 06737510 Problem MRSA (methicillin resistant staph aureus) culture positive Z22.322 Active 164999222 Problem Impaired circulation I99.9 Active 03863179 Problem Varicose veins of both lower extremities I83.93 Active 95700414 Problem Upper respiratory tract infection, unspecified type J06.9 Active 31410371 Problem Panic disorder without agoraphobia F41.0 Active 13366815 Problem Mild persistent asthma without complication J45.30 Active 416201424 Problem Fatigue R53.83 Active 61798559 Problem Other chronic pain G89.29 Active 79844284 ALLERGIES No Information ENCOUNTERS Encounter Location Date Diagnosis [facility] [address] [facility] [id number] [address] May, [facility] [address] [facility] [id number] [address] 63463- 4714 Feb, [facility] [address] [address]- [address]392 Feb, Low back pain M54.5 ; Other chronic pain G89.29 ; Exertional asthma J45.990 and Encounter for immunization Z23 [facility] [address] [address]- 4606 Feb, Skin fissures R23.4 ; Neuropathy G62.9 and Onychomycosis B35.1 [place] [address] 20716- 7857 05 Feb, 2018 Dysthymic disorder F34.1 [place] [address] 60449- 4540 Feb, [place] [address] 93119- 9635 Jan, [place] [address] 07594- 7718 Jan, Abrasion of right elbow, initial encounter S50.311A ; Abrasion, right knee, initial encounter S80.211A and Sprain of other ligament of right ankle, initial encounter S93.491A [facility] [address] [place] [id number] [address] 42452- 4590 Jan, [facility] [address] [address] Jan, Injury of left ankle, initial encounter S99.912A ; Fall down stairs, initial encounter W10.8XXA and BMI 45.0-49.9, adult Z68.42 [place] [address] 44566- 5037 Jan, COPD exacerbation J44.1 [place] [address] 67117- 1532 Jan, Dysfunction of both eustachian 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 [place] [address] [place] [id number] [address] 52248- 0687 08 Jan, 2018 Bronchitis J40 and Acute suppurative otitis media of left ear without spontaneous rupture of tympanic membrane, recurrence not specified H66.002 [place] [address] [place] [id number] [address] 05447- 0900 Jan, [place] [address] 08151- 4459 Jan, Bronchitis J40 and BMI 40.0-44.9, adult Z68.41 [place] [address] 56078- 2178 Jan, [place] [address] 65925- 2800 Dec, Gastric pain R10.9 [place] [address] 21596- 8052 Dec, [place] [address] 30671- 7952 Dec, History of illicit drug use Z87.898 ; Neuropathy G62.9 ; COPD (chronic obstructive pulmonary disease) with chronic bronchitis J44.9 and Acute pain of right knee M25.561 [place] [address] [place] [id number] [address] 99508- 4598 Nov, [place] [address] [place] [id number] [address] 09629- 1989 Nov, Onychomycosis B35.1 and Contusion of left foot, subsequent encounter S90.32XD [place] [address] 20002- 2415 Nov, COPD exacerbation J44.1 [place] [address] [place] [id number] [address] 71228- 5735 Sep, [place] [address] 53834- 7072 Sep, Dysthymic disorder F34.1 ; Tobacco abuse Z72.0 ; Pain in right knee M25.561 ; Pain in left knee M25.562 ; Other chronic pain G89.29 and BMI 40.0-44.9, adult Z68.41 [place] [address] [place] [id number] [address] 61400- 0917 Aug, Major depressive disorder, recurrent episode, moderate F33.1 and 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 [place] [address] 69465- 0322 14 Aug, 2017 Dysthymic disorder F34.1 ; Non-pressure chronic ulcer of left thigh, unspecified ulcer stage L97.129 ; Tobacco abuse Z72.0 ; Mild chronic obstructive pulmonary disease J44.9 and Forgetfulness R68.[address] [address]- 0742 Aug, Onychomycosis B35.1 ; Fissure in skin of foot R23.4 and Foot callus L84 [facility] [place] [address] [address] -[address]11 Jul, Right medial knee pain M25.561 ; Upper respiratory tract infection, unspecified type J06.9 and BMI 40.0-44.9, adult Z68.41 [facility] [place] [id number] [address] 79998 -8067 08 Jul, 2017 Nausea and vomiting, intractability of vomiting not specified, unspecified vomiting type R11.2 ; Left ear pain H92.02 and Gastric pain R10.9 [place] [address] [place] [id number] [address] 22566- 3290 Apr, Encounter for immunization Z23 [place] [address] 63257- 0785 Apr, Onychomycosis B35.1 ; Xerosis of skin L85.3 ; Neuropathy G62.9 and 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 [facility] [address]65[address] [address] Jan, Onychomycosis B35.1 and Neuropathy G62.9 [facility] [address]65[address] [address] 2694 Dec, [facility] [address] [place] [id number] [address] 26001- 3455 Dec, [facility] [address] [place] [id number] [address] 28373- 6002 Nov, [facility] [id number] [place] [address], [place] [address]- 3737 Aug, [facility] [address] [place] [id number] [address] 81720- 8831 Aug, [facility] [id number] [address] 40146- 8872 Jul, [facility] [address]65[address] [address]- 8221 Jul, [facility] [id number] [address] 43888- 4589 Jul, Decubitus ulcer of left thigh, stage 2 L89.892 [facility] [address]65[address] [address]- 3016 Jul, Decubitus ulcer of left thigh, stage 2 L89.892 [facility] [address] [address]- 2[address] Jul, [facility] [address] [address]- 9729 Jul, Decubitus ulcer of left thigh, stage 2 L89.892 [facility] [address]65[address] [address]- 6106 Jul, [facility] [id number] [address] 81271- 0459 Jul, Cellulitis of other specified site L03.818 ; Illicit drug use F19.90 and Decubitus ulcer of left thigh, stage 2 L89.892 [facility] [id number] [place] [address] 40289- 0207 08 Jul, 2016 [facility] [address] [place] [id number] [address] 19833- 5113 Jul, Cellulitis of right breast N61.0 [facility] [address] [place] [id number] [address] 19811- 3617 Jun, [facility] [address] [place] [id number] [address] 79586- 0090 Jun, [facility] [address] [place] [id number] [address] 09126- 3830 Jun, Wheezing R06.2 and Arthralgia, unspecified joint M25.50 [facility] [address] [place] [id number] [address] 79826- 3546 May, [facility] [address] [place] [id number] [address] 99674- 5922 May, [facility] [address] [place] [id number] [address] 06543- 8046 May, [place] [address] [place] [id number] [address] 35924- 3697 May, Shortness of breath R06.02 [facility] [address] [place] [id number] [address] 67821- 0874 May, Onychomycosis B35.1 and Fissure in skin of foot R23.4 [facility] [address] [place] [id number] [address] 23215- 8732 Apr, [facility] [id number] [place] [address] 99040 -7757 Apr, Dizziness R42 [facility] [address] [address]- 1911 14 Apr, 2016 Shortness of breath R06.02 ; Essential hypertension I10 ; Dizziness R42 and On home oxygen therapy Z99.81 [facility] [address] [address]- 7643 10 Apr, 2016 [facility] [address] [place] [id number] [address] 81560- 7663 08 Apr, 2016 [facility] [address] [place] [id number] [address] 69754- 0944 Apr, [facility] [address] [place] [id number] [address] 14879- 5373 Apr, [facility] [address] [place] [id number] [address] 23815- 6850 Apr, [facility] [address] [place] [id number] [address] 87766- 9617 Apr, [facility] [address] [place] [id number] [address] 78420- 5086 Apr, [facility] [address] [place] [id number] [address] 24430- 7855 Mar, Mild chronic obstructive pulmonary disease J44.9 [facility] [address] [address]- 4059 Mar, [facility] [address] [place] [id number] [address] 91146- 7170 Mar, Epigastric pain R10.13 ; Low back pain M54.5 ; Other chronic pain G89.29 and Breast cancer screening Z12.39 [facility] [address] [place] [id number] [address] 43956- 4633 Mar, [facility] [address] [address]- 0275 Mar, [facility] [address] [place] [id number] [address] 81881- 5529 Feb, [facility] [address] [address]- 1389 Feb, [facility] [address] [place] [id number] [address] 28867- 3136 Feb, Fissure in skin of foot R23.4 and Onychomycosis B35.1 [facility] [id number] [address] 24262- 2301 Jan, 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 [facility] [id number] [address] 12179- 3358 Dec, 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 [place] [id number] [address] 99653- 9705 Dec, Mild persistent asthma without complication J45.30 ; Dysthymic disorder F34.1 and Upper respiratory tract infection, unspecified type J06.9 [place] [id number] [address] 38197- 3243 Nov, 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 [place] [address] [place] [id number] [address] 18119- 8264 October, Agoraphobia 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 [place] [id number] [address] 18457- 7872 Sep, Panic disorder without agoraphobia F41.0 ; 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 and Dysthymic disorder F34.1 [facility] [address] [address]- 7412 Sep, Panic attacks F41.0 [facility] [address] [place] [id number] [address] 01641- 2613 Sep, [facility] [id number] [address] 92016- 5806 Sep, Panic disorder without agoraphobia F41.0 ; Varicose veins of both lower extremities I83.93 and Fatigue R53.83 [place] [address] [address]- 3977 14 Sep, 2015 Fatigue R53.83 [place] [address] [place] [id number] [address] 18134- 6790 05 Sep, 2015 [place] [address] [address]- 7902 Aug, [place] [address] [place] [id number] [address] 50458- 1708 Aug, [place] [address] [place] [id number] [address] 76521- 5636 Aug, 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 [place] [address] [place] [id number] [address] 90755- 6875 Aug, Panic disorder without agoraphobia F41.0 ; 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 and Dysthymic disorder F34.1 [place] [address] [address]- 1143 Aug, Shortness of breath R06.02 ; Panic attacks F41.0 ; COPD ( chronic obstructive pulmonary disease) J44.9 ; Tobacco abuse Z72.0 ; Family history of diabetes mellitus Z83.3 and Weight gain R63.5 [place] [address] [address]- 6165 Aug, [place] [address] [address]- 7469 Jul, [place] [address] [address]- 0292 Jun, Onychomycosis B35.1 ; Neuropathy G62.9 and Impaired circulation I99.9 [place] [address] [address]- 6051 09 Mar, 2015 Fissure in skin of foot R23.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 [facility] [address] [address]- 0673 18 Feb, 2015 Family history of coronary arteriosclerosis V17.3 [facility] [address] [place] [id number] [address] 95221- 4604 15 Feb, 2015 Allergic rhinitis due to pollen 477.0 ; Unspecified breast screening V76.10 ; Anxiety 300.00 and Family history of coronary arteriosclerosis V17.3 [facility] [address] [place] [id number] [address] 38184- 9678 Jan, [facility] [address] [place] [id number] [address] 69601- 7257 Dec, [facility] [address] [place] [id number] [address] 63293- 1557 Dec, Onychomycosis 110.1 and Skin fissures 709.8 [facility] [address] [place] [id number] [address] 70588- 7804 Sep, [facility] [address] [place] [id number] [address] 67139- 0060 Sep, [facility] [address] [place] [id number] [address] 40719- 6509 Aug, [facility] [address] [address]- 0953 Aug, [facility] [address] [place] [id number] [address] 69711- 5237 Jul, [facility] [address] [address]- 1751 Jul, [facility] [address] [place] [id number] [address] 48118- 1124 Jun, [facility] [address] [place] [id number] [address]- 9310 Jun, [facility] [address] [place] [id number] [address]- 1514 Jun, [facility] [place] [facility] [address] [id number] [place] [address]- 3741 Jun, [facility] [place] [facility] [address] [id number] [place] [address]- 5236 Jun, [facility] [place] [facility] [address] [id number] [place] [address]- 3878 May, [facility] [place] [facility] [address] [id number] [place] [address]- 7978 May, [facility] [place] [facility] [address] [id number] [place] [address]- 6216 May, [facility] [place] [facility] [address] [id number] [place] [address]- 4117 May, [facility] [place] [facility] [address] [id number] [place] [address]- 2081 May, [facility] [place] [facility] [address] [id number] [place] [address]- 0906 May, [facility] [place] [facility] [address] [id number] [place] [address]- 1034 May, [facility] [place] [facility] [address] [id number] [place] [address]- 9266 May, [facility] [place] [facility] [address] [id number] [place] [address]- 2290 Apr, [facility] [place] [facility] [address] [id number] [place] [address]- 2908 Apr, [facility] [place] [facility] [address] [id number] [place] [address]- 4289 Apr, [facility] [place] [facility] [address] [id number] [place] [address]- 0240 Apr, [facility] [place] [facility] [address] [id number] [place] [address]- 1951 Apr, [facility] [place] [facility] [address] [id number] [place] [address]- 1882 Apr, [facility] [place] [facility] [address] [id number] [place] [address]- 2425 Apr, [facility] [place] [facility] [address] [id number] [place] [address]- 7750 Apr, [facility] [place] [facility] [address] [id number] [place] [address]- 9571 Apr, [facility] [place] [facility] [address] [id number] [place] [address]- 7165 Apr, [facility] [place] [facility] [address] [id number] [place] [address]- 5193 Mar, [facility] [place] [facility] [address] [id number] [place] [address]- 7129 Mar, [facility] [place] [facility] [address] [id number] [place] [address]- 4201 Mar, [facility] [place] [facility] [address] [id number] [place] [address]- 5651 Mar, [facility] [place] [facility] [address] [id number] [place] [address]- 4133 Mar, [facility] [place] [facility] [address] [id number] [place] [address]- 6830 Mar, [facility] [place] [facility] [address] [id number] [place] [address]- 9836 Mar, [facility] [place] [facility] [address] [id number] [place] [address]- 4901 Mar, [facility] [place] [facility] [address] [id number] [place] [address]- 5138 Mar, [facility] [place] [facility] [address] [id number] [place] [address]- 5507 Mar, [facility] [place] [facility] [address] [id number] [place] [address]- 3875 Mar, [facility] [place] [facility] [address] [id number] [place] [address]- 9204 Mar, [facility] [place] [facility] [address] [id number] [place] [address]- 3368 Mar, [facility] [place] [facility] [address] [id number] [place] [address]- 7451 Mar, [facility] [place] [facility] [address] [id number] [place] [address]- 1351 Mar, [facility] [place] [facility] [address] [id number] [place] [address]- 3040 Mar, [facility] [place] [facility] [address] [id number] [place] [address]- 9377 20 Mar, 2014 [facility] [place] [facility] [address] [id number] [place] [address]- 7100 16 Mar, 2014 [facility] [place] [facility] [address] [id number] [place] [address]- 3807 16 Mar, 2014 [facility] [place] [facility] [address] [id number] [place] [address]- 9518 15 Mar, 2014 [facility] [place] [facility] [address] [id number] [place] [address]- 5102 14 Mar, 2014 [facility] [place] [facility] [address] [id number] [address]- 7984 14 Mar, 2014 [facility] [place] [facility] [address] [id number] [address]- 7652 14 Mar, 2014 [facility] [place] [facility] [address] [id number] [place] [address]- 4737 14 Mar, 2014 [facility] [place] [facility] [address] [id number] [address]- 0076 09 Mar, 2014 [facility] [place] [facility] [address] [id number] [place] [address]- 9595 09 Mar, 2014 [facility] [place] [facility] [address] [id number] [place] [address]- 8589 Mar, 2013 [facility] [place] [facility] [address] [id number] [place] [address]- 3941 Mar, 2013 [facility] [place] [facility] [address] [id number] [place] [address]- 7620 Feb, 2013 [facility] [place] [facility] [address] [id number] [place] [address]- 2161 30 Feb, 2013 [facility] [place] [facility] [address] [id number] [place] [address]- 1259 30 Feb, 2013 [facility] [place] [facility] [address] [id number] [place] [address]- 6783 30 Feb, 2013 [facility] [place] [facility] [address] [id number] [place] [address]- 5711 Feb, 2013 [facility] [place] [facility] [address] [id number] [place] [address]- 5895 Feb, 2013 [facility] [place] [facility] [address] [id number] [place] [address]- 4776 Feb, 2013 [facility] [place] [facility] [address] [id number] [place] [address]- 4417 Feb, 2013 [facility] [place] [facility] [address] [id number] [place] [address] Feb, 2013 [facility] [place] [facility] [address] [id number] [place] [address] Feb, 2013 [facility] [place] [facility] [address] [id number] [place] [address] Feb, 2013 [facility] [place] [facility] [address] [id number] [place] [address] Feb, 2013 [facility] [place] [facility] [address] [id number] [place] [address] Jan, [facility] [place] [facility] [address] [id number] [place] [address] Jan, [facility] [place] [facility] [address] [id number] [place] [address] Jan, [facility] [place] [facility] [address] [id number] [place] [address] Jan, [facility] [place] [facility] [address] [id number] [place] [address] Jan, [facility] [place] [facility] [address] [id number] [place] [address] Jan, [facility] [place] [facility] [address] [id number] [place] [address] Jan, [facility] [place] [facility] [address] [id number] [place] [address] Jan, [facility] [place] [facility] [address] [id number] [place] [address] Jan, [facility] [place] [facility] [address] [id number] [place] [address] Jan, [facility] [place] [facility] [address] [id number] [place] [address] Jan, [facility] [place] [facility] [address] [id number] [place] [address] Jan, [facility] [place] [facility] [address] [id number] [place] [address] Jan, [facility] [place] [facility] [address] [id number] [place] [address] Dec, [facility] [place] [facility] [address] [id number] [place] [address] Dec, [facility] [place] [facility] [address] [id number] [place] [address] Dec, [facility] [place] [facility] [address] [id number] [place] [address] Dec, [facility] [place] [facility] [address] [id number] [place] [address] Dec, 2013 [facility] [place] [facility] [address] [id number] [place] [address] Dec, [facility] [place] [facility] [address] [id number] [place] [address] Dec, [facility] [place] [facility] [address] [id number] [place] [address] Dec, [facility] [place] [facility] [address] [id number] [place] [address] Dec, [facility] [place] [facility] [address] [id number] [place] [address] Dec, [facility] [place] [facility] [address] [id number] [place] [address] Dec, [facility] [place] [facility] [address] [id number] [place] [address] Dec, [facility] [place] [facility] [address] [id number] [place] [address] Dec, [facility] [place] [facility] [address] [id number] [place] [address] Dec, [facility] [place] [facility] [address] [id number] [place] [address] Dec, [facility] [place] [facility] [address] [id number] [place] [address] Dec, [facility] [place] [facility] [address] [id number] [place] [address] 8765 Dec, [facility] [place] [facility] [address] [id number] [place] [address] 4[address] Dec, [facility] [place] [facility] [address] [id number] [place] [address] Nov, [facility] [place] [facility] [address] [id number] [place] [address] 2313 Nov, [facility] [place] [facility] [address] [id number] [place] [address] 2586 Nov, [facility] [place] [facility] [address] [id number] [place] [address] Nov, [facility] [place] [facility] [address] [id number] [place] [address] 6[address] Nov, [facility] [place] [facility] [address] [id number] [place] [address] 0644 Nov, [facility] [place] [facility] [address] [id number] [place] [address] 1315 Nov, [facility] [place] [facility] [address] [id number] [place] [address] 6592 Nov, [facility] [place] [facility] [address] [id number] [place] [address] 3633 Nov, [facility] [place] [facility] [address] [id number] [place] [address] 3068 Nov, [facility] [place] [facility] [address] [id number] [place] [address] 9961 Nov, [facility] [place] [facility] [address] [id number] [place] [address] 3663 Nov, [facility] [place] [facility] [address] [id number] [place] [address]- 2606 Nov, [facility] [place] [facility] [address] [id number] [place] [address]- 8958 Nov, [facility] [place] [facility] [address] [id number] [place] [address]- 7221 Nov, [facility] [place] [facility] [address] [id number] [place] [address]- 0596 Nov, [facility] [place] [facility] [address] [id number] [place] [address]- 1435 Nov, [facility] [place] [facility] [address] [id number] [place] [address]- 2254 Nov, [facility] [place] [facility] [address] [id number] [place] [address]- 2189 Nov, [facility] [place] [facility] [address] [id number] [place] [address]- 4281 Nov, [facility] [place] [facility] [address] [id number] [place] [address] 3326 October, [facility] [place] [facility] [address] [id number] [place] [address]- 6469 October, [facility] [place] [facility] [address] [id number] [place] [address]- 2633 October, [facility] [place] [facility] [address] [id number] [place] [address]- 9650 October, [facility] [place] [facility] [address] [id number] [place] [address]- 7049 Sep, [facility] [place] [facility] [address] [id number] [place] [address]- 5561 Sep, [facility] [place] [facility] [address] [id number] [place] [address]- 0129 Sep, [facility] [place] [facility] [address] [id number] [place] [address]- 2476 Sep, [facility] [place] [facility] [address] [id number] [place] [address]- 8179 Sep, [facility] [place] [facility] [address] [id number] [address] 82[address] Sep, [facility] [place] [facility] [address] [id number] [place] [address] 8840 Sep, [facility] [place] [facility] [address] [id number] [place] [address]- 7837 Sep, [facility] [place] [facility] [address] [id number] [place] [address] 5946 Sep, [facility] [place] [facility] [address] [id number] [place] [address]- 7102 27 Aug, 2013 [facility] [place] [facility] [address] [id number] [place] [address]- 9099 Aug, [facility] [place] [facility] [address] [id number] [place] [address]- 5026 Aug, [facility] [place] [facility] [address] [id number] [place] [address]- 5106 Aug, [facility] [place] [facility] [address] [id number] [place] [address]- 4559 Aug, [facility] [place] [facility] [address] [id number] [place] [address] 2388 Aug, [facility] [place] [facility] [address] [id number] [place] [address]- 3348 Aug, [facility] [place] [facility] [address] [id number] [place] [address] 6919 Aug, [facility] [place] [facility] [address] [id number] [place] [address]- 3697 Jul, [facility] [place] [facility] [address] [id number] [place] [address]- 7355 Jul, [facility] [place] [facility] [address] [id number] [place] [address]- 0384 Jun, [facility] [place] [facility] [address] [id number] [place] [address]- 2235 Jun, [facility] [place] [facility] [address] [id number] [place] [address]- 3146 Jun, [facility] [place] [facility] [address] [id number] [place] [address]- 7567 Jun, [facility] [place] [facility] [address] [id number] [place] [address]- 7107 Jun, [facility] [place] [facility] [address] [id number] [place] [address]- 3914 Jun, [facility] [place] [facility] [address] [id number] [place] [address]- 1626 Jun, [facility] [place] [facility] [address] [id number] [place] [address]- 1354 Jun, [facility] [place] [facility] [address] [id number] [place] [address]- 3095 Jun, [facility] [place] [facility] [address] [id number] [place] [address]- 9814 Jun, [facility] [address] [id number] [place] [address]- 1367 Jun, [facility] [place] [facility] [address] [id number] [place] [address]- 3984 Jun, [facility] [address] [id number] [place] [address] 3135 May, [facility] [address] [id number] [place] [address]- 9707 May, [facility] [place] [facility] [address] [id number] [place] [address]- 3414 May, [facility] [place] [facility] [address] [id number] [place] [address]- 5871 May, [facility] [place] [facility] [address] [id number] [place] [address]- 3571 May, [facility] [place] [facility] [address] [id number] [place] [address]- 7603 May, [facility] [place] [facility] [address] [id number] [place] [address]- 3698 May, [facility] [place] [facility] [address] [id number] [place] May, [facility] [place] [facility] [address] [id number] [place] [address]- 1579 May, [facility] [place] [facility] [address] [id number] [place] [address]- 9255 May, [facility] [place] [facility] [address] [id number] [place] [address]- 3418 May, [facility] [place] [facility] [address] [id number] [place] [address]- 5741 May, [facility] [place] [facility] [address] [id number] [place] [address] May, [facility] [place] [facility] [address] [id number] [place] [address]- 6549 Apr, [facility] [place] [facility] [address] [id number] [place] [address]- 0573 Apr, [facility] [place] [facility] [address] [id number] [place] [address]- 0552 Mar, [facility] [place] [facility] [address] [id number] [place] [address]- 9191 Mar, [facility] [place] [facility] [address] [id number] [place] [address]- 4335 24 Feb, 2013 [facility] [place] [facility] [address] [id number] [place] [address] 1920 Feb, [facility] [place] [facility] [address] [id number] [place] [address]- 2792 Feb, [facility] [place] [facility] [address] [id number] [place] [address]- 6873 Feb, [facility] [place] [facility] [address] [id number] [place] [address]- 4713 Jan, [facility] [place] [facility] [address] [id number] [place] [address]- 8790 Jan, [facility] [place] [facility] [address] [id number] [place] [address] Jan, [facility] [place] [facility] [address] [id number] [place] [address]- 8465 Jan, [facility] [place] [facility] [address] [id number] [place] [address]- 2546 Jan, [facility] [address] [id number] [place] [address]- 5226 Jan, [facility] [place] [facility] [address] [id number] [place] [address]- 2546 Dec, [facility] [address] [id number] [place] [address]- 5656 Dec, [facility] [address] [id number] [place] [address]- 6892 Dec, [facility] [address] [id number] [place] [address]- 5561 Dec, [facility] [address] [id number] [place] [address]- 9516 Nov, [facility] [address] [id number] [place] [address]- 7076 October, [facility] [address] [id number] [place] [address]- 2427 October, [facility] [address] [id number] [place] [address]- 2336 October, [facility] [address] [id number] [place] [address]- 4370 Sep, [facility] [address] [id number] [place] [address]- 2546 Sep, [facility] [address] [id number] [place] [address]- 2519 Jun, [facility] [place] [facility] [address] [id number] [place] [address]- 2546 Jun, [facility] [place] [facility] [address] [id number] [place] [address]- 2546 Jun, [facility] [place] [facility] [address] [id number] [place] [address]- 4601 Apr, [facility] [place] [facility] [address] [id number] [place] [address]- 6535 Apr, [facility] [place] [facility] [address] [id number] [place] [address]- 1569 Apr, [facility] [place] [facility] [address] [id number] [place] [address] Apr, [facility] [place] [facility] [address] [id number] [place] [address]- 3484 Mar, [facility] [place] [facility] [address] [id number] [place] [address]- 4783 Mar, [facility] [place] [facility] [address] [id number] [place] [address]- 1785 Mar, [facility] [place] [facility] [address] [id number] [place] [address]- 1634 Mar, [facility] [place] [facility] [address] [id number] [place] [address]- 7550 Feb, [facility] [place] [facility] [address] [id number] [place] [address]- 0817 Feb, [facility] [place] [facility] [address] [id number] [place] [address]- 0806 Feb, [facility] [place] [facility] [address] [id number] [place] [address]- 8061 Jan, [facility] [place] [facility] [address] [id number] [address]- 6738 Jan, [facility] [place] [facility] [address] [id number] [place] [address]- 7826 Jan, [facility] [place] [facility] [address] [id number] [place] [address]- 9451 Jan, [facility] [place] [facility] [address] [id number] [place] [address]- 2345 Dec, [facility] [place] [facility] [address] [id number] [place] [address]- 0152 Dec, [facility] [address] [id number] [place] [address]- 7102 Nov, [facility] [place] [facility] [address] [id number] [place] [address]- 4218 Nov, [facility] [place] [facility] [address] [id number] [place] [address]- 0892 October, [facility] [place] [facility] [address] [id number] [place] [address]- 2113 October, [facility] [place] [facility] [address] [id number] [place] [address]- 3447 October, [facility] [place] [facility] [address] [id number] [place] [address]- 0370 Sep, [facility] [address] [id number] [place] [address]- 7164 Sep, [facility] [place] [facility] [address] [id number] [place] [address]- 1541 Sep, [facility] [place] [facility] [address] [id number] [place] [address]- 3773 Aug, [facility] [place] [facility] [address] [facility] [id number] [place] [address]- 3894 Aug, [facility] [place] [facility] [address] [id number] [place] [address]- 9275 Aug, [facility] [place] [facility] [address] [id number] [place] [address]- 9678 Aug, [facility] [place] [facility] [address] [id number] [place] [address]- 6910 Aug, [facility] [place] [facility] [address] [id number] [place] [address]- 2038 Jul, [facility] [place] [facility] [address] [id number] [place] [address]- 2554 16 Jul, 2011 [facility] [place] [facility] [address] [id number] [place] [address]- 3464 Jul, [facility] [place] [facility] [address] [id number] [place] [address]- 7466 Jul, [facility] [place] [facility] [address] [id number] [place] [address]- 1336 Jul, [facility] [place] [facility] [address] [id number] [place] [address]- 8054 Jul, [facility] [place] [facility] [address] [id number] [place] [address]- 6761 Jul, [facility] [place] [facility] [address] [id number] [place] [address]- 2382 Jul, [facility] [place] [facility] [address] [id number] [place] [address]- 4624 Jun, [facility] [place] [facility] [address] [id number] [place] [address]- 7869 Jun, [facility] [place] [facility] [address] [id number] [place] [address]- 0941 May, [facility] [place] [facility] [address] [id number] [place] [address]- 5517 May, [facility] [place] [facility] [address] [id number] [place] [address]- 6895 May, [facility] [place] [facility] [address] [id number] [place] [address]- 1663 May, [facility] [place] [facility] [address] [id number] [place] [address]- 6819 Apr, [facility] [place] [facility] [address] [id number] [place] [address]- 7504 Apr, [facility] [place] [facility] [address] [id number] [place] [address]- 6044 Apr, [facility] [place] [facility] [address] [id number] [place] [address]393 18 Mar, 2011 [facility] [place] [facility] [address] [id number] [place] [address]- 2936 18 Mar, 2011 [facility] [place] [facility] [address] [id number] [place] [address]356 18 Mar, 2011 [facility] [place] [facility] [address] [id number] [place] [address]- 1686 2011 [facility] [place] [facility] [address] [id number] [place] [address]- 8552 12 Dec, 2010 [facility] [place] [facility] [address] [id number] [place] [address] October, [facility] [place] [facility] [address] [id number] [place] [address]- 0131 28 May, 2010 [facility] [place] [facility] [address] [id number] [place] [address]- 6575 13 May, 2010 [facility] [place] [facility] [address] [id number] [place] [address]- 5408 13 May, 2010 [facility] [place] [facility] [address] [id number] [place] [address]- 4162 06 May, 2010 [facility] [place] [facility] [address] [facility] [id number] [place] [address]- 1913 26 Mar, 2010 [facility] [place] [facility] [address] [id number] [place] [address]- 1629 25 Mar, 2010 [facility] [place] [facility] [address] [id number] [place] [address]- 2547 31 May, 2009 [facility] [place] [facility] [address] [id number] [place] [address]- 8212 30 May, 2009 [facility] [place] [facility] [address] [facility] [id number] [place] [address]- 2546 08 May, 2009 [facility] [place] [facility] [address] [facility] [id number] [place] 8838 08 May, 2009 [facility] [place] [facility] [address] [facility] [id number] [place] [address]- 5892 Apr, [facility] [address] [facility] [id number] [address]- 1785 Apr, [facility] [address] [facility] [id number] [id number] [address] October, IMMUNIZATIONS No Known Immunizations SOCIAL HISTORY Never Assessed REASON FOR VISIT medication PLAN OF CARE VITAL SIGNS MEDICATIONS Unknown [...]
[2018-03-26] MEDS ORDERED: NS IV 1000 ML 1,000 ML IV SCH ×2 (10:15→12:26)
[2018-03-26] MEDS ORDERED: QUIN20TA16 PO (10:25)
[2018-03-26 10:26] LABS: HEMOGLOBIN 13.8 G/DL (11.5-16.0); MEAN PLATELET VOLUME 10.9 FL (7.4-10.4); RED BLOOD COUNT 4.71 10^6/uL (4.35-5.85); RED CELL DISTRIBUTION WIDTH 14.4 % (10.0-14.5); WHITE BLOOD COUNT 6.5 10^3/uL (4.3-11.0)
[2018-03-26] MEDS ORDERED: OMEP20TA7 PO (10:28)
[2018-03-26] MEDS ORDERED: CYCL10TA9 PO (10:30)
[2018-03-26] MEDS ORDERED: NITR100C PO (10:31)
[2018-03-26] MEDS ORDERED: FESO4TAB PO (10:32)
--- OUTSIDE RECORDS SUMMARY | 2018-03-26 10:32 | XMS REPORT | Continuity of Care Document ---
Author Author [facility] Address Unknown Phone Unavailable Allergies Active Description Code Type Severity Reaction Onset Reported/Identified Relationship to Patient Clinical Status Yes codeine [id number] Drug Allergy Mild N/A 05/27/2008 Yes codeine Drug Allergy N/A N/A 08/10/2008 Yes codeine Drug Allergy 08/10/2008 Yes bees OA N/A N/A 12/14/2008 Yes bees OA 12/14/2008 Yes Bactrim DS 800-160 mg tablet Drug Allergy N/A N/A 01/06/2014 Yes sulfamethoxazole [id number] Drug Allergy Severe N/A 03/04/2014 Yes trimethoprim [id number] Drug Allergy Severe N/A 03/04/2014 Yes hydrocodone-acetaminophen 10-325 mg tablet Drug Allergy N/A N/A 2014 Yes bee venom (honey bee) [id number] Drug Allergy Unknown N/A 09/16/2014 Yes venom-honey bee [id number] Drug Allergy Unknown N/A 09/16/2014 Yes codeine [id number] Drug Allergy Severe ANAPHYLAXIS BUT 11/11/2014 Medications There is no data. 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 05/10/1453 SOSA RESENDIZ MD, Ot F15.10 OTHER STIMULANT ABUSE, UNCOMPLICATED 05/10/1453 SOSA RESENDIZ MD Ot L03.818 CELLULITIS OF OTHER SITES 05/10/1453 MARTÍN MD, SOSA G Ot L97.122 NON-PRESSURE CHRONIC ULCER OF LEFT THIGH 01/10/2008 JOSIAH SLOPE RUNNER, RASHEED S 724.5 Backache Unspecified 01/10/2008 724.5 Backache Unspecified 01/10/2008 JOSIAH SLOPE RUNNER, RASHEED S 724.5 Backache Unspecified 01/10/2008 724.5 Backache Unspecified 01/10/2008 724.5 Backache Unspecified 01/10/2008 JOSIAH SLOPE RUNNER, RASHEED S 724.5 Backache Unspecified 01/10/2008 JOSIAH SLOPE RUNNER, RASHEED S 724.5 Backache Unspecified 01/10/2008 JOSIAH SLOPE RUNNER, RASHEED S 724.5 Backache Unspecified 01/10/2008 JOSIAH SLOPE RUNNER, RASHEED S 724.5 Backache Unspecified 01/10/2008 JOSIAH SLOPE RUNNERNAKIA LockwoodNDA S 724.5 Backache Unspecified 01/10/2008 BYRON ESCOOT, AMINA Marr 724.5 Backache Unspecified 01/10/2008 JACK YUAN DO K 724.5 Backache Unspecified 01/10/2008 JOSIAH SLOPE RUNNER, RASHEED S 724.5 Backache Unspecified 01/10/2008 JOSIAH SLOPE RUNNERNAKIA LockwoodNDA S 724.5 Backache Unspecified 01/10/2008 NANCY ANAYA APRN 724.5 Backache Unspecified 01/10/2008 JOSIAH SLOPE RUNNER, RASHEED S 724.5 Backache Unspecified 01/10/2008 NAKIA RAHMAN APRNNDA S 724.5 Backache Unspecified 01/10/2008 YUAN INDER HDEZA K 724.5 Backache Unspecified 01/10/2008 JOSIAH SLOPE RUNNER, RASHEED S 724.5 Backache Unspecified 01/10/2008 JOSIAH SLOPE RUNNER, RASHEED S 724.5 Backache Unspecified 01/10/2008 NICCI ESCOTO, ARIAS 724.5 Backache Unspecified 01/10/2008 JOSIAH SLOPE RUNNER, RASHEED S 724.5 Backache Unspecified 01/10/2008 JOSIAH LERNER RASHEED S 724.5 Backache Unspecified 01/10/2008 JACK YUAN DO K 724.5 Backache Unspecified 01/10/2008 JOSIAH SLOPE RUNNER, RASHEED S 724.5 Backache Unspecified 01/10/2008 JOSIAH SLOPE RUNNER, RASHEED S 724.5 Backache Unspecified 01/10/2008 JOSIAH SLOPE RUNNER, RASHEED S 724.5 Backache Unspecified 02/18/2008 JOSIAH SLOPE RUNNER, RASHEED S 729.1 MYALGIA AND MYOSITIS UNSPECIFIED 02/18/2008 729.1 MYALGIA AND MYOSITIS UNSPECIFIED 02/18/2008 JOSIAH SLOPE RUNNER, RASHEED S 729.1 MYALGIA AND MYOSITIS UNSPECIFIED 02/18/2008 729.1 MYALGIA AND MYOSITIS UNSPECIFIED 02/18/2008 729.1 MYALGIA AND MYOSITIS UNSPECIFIED 02/18/2008 JOSIAH SLOPE RUNNER, RASHEED S 729.1 MYALGIA AND MYOSITIS UNSPECIFIED 02/18/2008 JOSIAH LERNER RASHEED S 729.1 MYALGIA AND MYOSITIS UNSPECIFIED 02/18/2008 JOSIAH SLOPE RUNNER, RASHEED S 729.1 MYALGIA AND MYOSITIS UNSPECIFIED 02/18/2008 JOSIAH SLOPE RUNNER, RASHEED S 729.1 MYALGIA AND MYOSITIS UNSPECIFIED 02/18/2008 JOSIAH SLOPE RUNNER, RASHEED S 729.1 MYALGIA AND MYOSITIS UNSPECIFIED 02/18/2008 BYRON ESCOTO, AMINA Marr 729.1 MYALGIA AND MYOSITIS UNSPECIFIED 02/18/2008 JACK YUAN DO K 729.1 MYALGIA AND MYOSITIS UNSPECIFIED 02/18/2008 JOSIAH SLOPE RUNNER, RASHEED S 729.1 MYALGIA AND MYOSITIS UNSPECIFIED 02/18/2008 JOSIAH SLOPE RUNNER, RASHEED S 729.1 MYALGIA AND MYOSITIS UNSPECIFIED 02/18/2008 NANCY ANAYA APRN 729.1 MYALGIA AND MYOSITIS UNSPECIFIED 02/18/2008 JOSIAH LERNER RASHEED S 729.1 MYALGIA AND MYOSITIS UNSPECIFIED 02/18/2008 JOSIAH SLOPE RUNNER, RASHEED S 729.1 MYALGIA AND MYOSITIS UNSPECIFIED 02/18/2008 JACK YUAN DO 729.1 MYALGIA AND MYOSITIS UNSPECIFIED 02/18/2008 JOSIAH SLOPE RUNNER, RASHEED S 729.1 MYALGIA AND MYOSITIS UNSPECIFIED 02/18/2008 JOSIAH SLOPE RUNNER, RASHEED S 729.1 MYALGIA AND MYOSITIS UNSPECIFIED 02/18/2008 ARIAS GRAJEDA MD 729.1 MYALGIA AND MYOSITIS UNSPECIFIED 02/18/2008 JOSIAH SLOPE RUNNER, RASHEED S 729.1 MYALGIA AND MYOSITIS UNSPECIFIED 02/18/2008 JOSIAH SLOPE RUNNER, RASHEED S 729.1 MYALGIA AND MYOSITIS UNSPECIFIED 02/18/2008 JACK YUAN DO K 729.1 MYALGIA AND MYOSITIS UNSPECIFIED 02/18/2008 JOSIAH SLOPE RUNNER, RASHEED S 729.1 MYALGIA AND MYOSITIS UNSPECIFIED 02/18/2008 JOSIAH SLOPE RUNNER, RASHEED S 729.1 MYALGIA AND MYOSITIS UNSPECIFIED 02/18/2008 JOSIAH SLOPE RUNNER, RASHEED S 729.1 MYALGIA AND MYOSITIS UNSPECIFIED 06/22/2008 JOSIAH SLOPE RUNNER, RASHEED S 782.1 Rash 06/22/2008 782.1 Rash 06/22/2008 JOSIAH SLOPE RUNNER, RASHEED S 782.1 Rash 06/22/2008 782.1 Rash 06/22/2008 782.1 Rash 06/22/2008 JOSIAH SLOPE RUNNER, RASHEED S 782.1 Rash 06/22/2008 JOSIAH SLOPE RUNNER, RASHEED S 782.1 Rash 06/22/2008 JOSIAH SLOPE RUNNER, RASHEED S 782.1 Rash 06/22/2008 JOSIAH SLOPE RUNNER, RASHEED S 782.1 Rash 06/22/2008 JOSIAH SLOPE RUNNER, RASHEED S 782.1 Rash 06/22/2008 BYRON ESCOTO, AMINA Marr 782.1 Rash 06/22/2008 JACK YUAN DO K 782.1 Rash 06/22/2008 JOSIAH SLOPE RUNNER, RASHEED S 782.1 Rash 06/22/2008 JOSIAH SLOPE RUNNER, RASHEED S 782.1 Rash 06/22/2008 MADL SLOPE RUNNER, NANCY L 782.1 Rash 06/22/2008 JOSIAH SLOPE RUNNER, RASHEED S 782.1 Rash 06/22/2008 JOSIAH SLOPE RUNNER, RASHEED S 782.1 Rash 06/22/2008 YUAN DO, JACK K 782.1 Rash 06/22/2008 JOSIAH SLOPE RUNNER, RASHEED S 782.1 Rash 06/22/2008 JOSIAH SLOPE RUNNER, RASHEED S 782.1 Rash 06/22/2008 NICCI ESCOTO, ARIAS 782.1 Rash 06/22/2008 JOSIAH SLOPE RUNNER, RASHEED S 782.1 Rash 06/22/2008 JOSIAH SLOPE RUNNER, RASHEED S 782.1 Rash 06/22/2008 YUAN DO, JACK K 782.1 Rash 06/22/2008 JOSIAH SLOPE RUNNER, RASHEED S 782.1 Rash 06/22/2008 JOSIAH SLOPE RUNNER, RASHEED S 782.1 Rash 06/22/2008 JOSIAH SLOPE RUNNER, RASHEED S 782.1 Rash 08/10/2008 JOSIAH SLOPE RUNNER, RASHEED S 708.9 Unspecified Urticaria 08/10/2008 708.9 Unspecified Urticaria 08/10/2008 JOSIAH SLOPE RUNNER, RASHEED S 708.9 Unspecified Urticaria 08/10/2008 708.9 Unspecified Urticaria 08/10/2008 708.9 Unspecified Urticaria 08/10/2008 JOSIAH SLOPE RUNNER, RASHEED S 708.9 Unspecified Urticaria 08/10/2008 JOSAIH SLOPE RUNNER, RASHEED S 708.9 Unspecified Urticaria 08/10/2008 JOSIAH SLOPE RUNNER, RASHEED S 708.9 Unspecified Urticaria 08/10/2008 JOSIAH SLOPE RUNNER, RASHEED S 708.9 Unspecified Urticaria 08/10/2008 JOSIAH SLOPE RUNNER, RASHEED S 708.9 Unspecified Urticaria 08/10/2008 BYRON ESCOTO, AMINA Marr 708.9 Unspecified Urticaria 08/10/2008 YUAN DO, JACK K 708.9 Unspecified Urticaria 08/10/2008 JOSIAH SLOPE RUNNER, RASHEED S 708.9 Unspecified Urticaria 08/10/2008 JOSIAH SLOPE RUNNER, RASHEED S 708.9 Unspecified Urticaria 08/10/2008 MADL SLOPE RUNNER, NANCY L 708.9 Unspecified Urticaria 08/10/2008 JOSIAH SLOPE RUNNER, RASHEED S 708.9 Unspecified Urticaria 08/10/2008 JOSIAH SLOPE RUNNER, RASHEED S 708.9 Unspecified Urticaria 08/10/2008 YUAN DO, JACK K 708.9 Unspecified Urticaria 08/10/2008 JOSIAH SLOPE RUNNER, RASHEED S 708.9 Unspecified Urticaria 08/10/2008 JOSIAH SLOPE RUNNER, RASHEED S 708.9 Unspecified Urticaria 08/10/2008 ARIAS GRAJEDA MD 708.9 Unspecified Urticaria 08/10/2008 JOSIAH SLOPE RUNNER, RASHEED S 708.9 Unspecified Urticaria 08/10/2008 JOSIAH SLOPE RUNNER, RASHEED S 708.9 Unspecified Urticaria 08/10/2008 YUAN DO, JACK K 708.9 Unspecified Urticaria 08/10/2008 JOSIAH SLOPE RUNNER, RASHEED S 708.9 Unspecified Urticaria 08/10/2008 JOSIAH SLOPE RUNNER, RASHEED S 708.9 Unspecified Urticaria 08/10/2008 JOSIAH SLOPE RUNNER, RASHEED S 708.9 Unspecified Urticaria 08/17/2008 JOISAH SLOPE RUNNER, RASHEED S 465.9 Acute Upper Respiratory Infections Of Unspecified Site 08/17/2008 JOSIAH SLOPE RUNNER, RASHEED S 692.81 Dermatitis Due To Cosmetics 08/17/2008 465.9 Acute Upper Respiratory Infections Of Unspecified Site 08/17/2008 692.81 Dermatitis Due To Cosmetics 08/17/2008 JOSIAH SLOPE RUNNER, RASHEED S 465.9 Acute Upper Respiratory Infections Of Unspecified Site 08/17/2008 JOSIAH SLOPE RUNNER, RASHEED S 692.81 Dermatitis Due To Cosmetics 08/17/2008 465.9 Acute Upper Respiratory Infections Of Unspecified Site 08/17/2008 692.81 Dermatitis Due To Cosmetics 08/17/2008 465.9 Acute Upper Respiratory Infections Of Unspecified Site 08/17/2008 692.81 Dermatitis Due To Cosmetics 08/17/2008 JOSIAH SLOPE RUNNER, RASHEED S 465.9 Acute Upper Respiratory Infections Of Unspecified Site 08/17/2008 JOSIAH SLOPE RUNNER, RASHEED S 692.81 Dermatitis Due To Cosmetics 08/17/2008 JOSIAH SLOPE RUNNER, RASHEED S 465.9 Acute Upper Respiratory Infections Of Unspecified Site 08/17/2008 JOSIAH SLOPE RUNNER, RASHEED S 692.81 Dermatitis Due To Cosmetics 08/17/2008 JOSIAH SLOPE RUNNER, RASHEED S 465.9 Acute Upper Respiratory Infections Of Unspecified Site 08/17/2008 JOSIAH SLOPE RUNNER, RASHEED S 692.81 Dermatitis Due To Cosmetics 08/17/2008 JOSIAH SLOPE RUNNER, RASHEED S 465.9 Acute Upper Respiratory Infections Of Unspecified Site 08/17/2008 JOSIAH SLOPE RUNNER, RASHEED S 692.81 Dermatitis Due To Cosmetics 08/17/2008 JOSIAH SLOPE RUNNER, RASHEED S 465.9 Acute Upper Respiratory Infections Of Unspecified Site 08/17/2008 JOSIAH SLOPE RUNNER, RASHEED S 692.81 Dermatitis Due To Cosmetics 08/17/2008 AMINA MATTHEWS MD 465.9 Acute Upper Respiratory Infections Of Unspecified Site 08/17/2008 AMINA MATTHEWS MD 692.81 Dermatitis Due To Cosmetics 08/17/2008 YUAN DO, JACK K 465.9 Acute Upper Respiratory Infections Of Unspecified Site 08/17/2008 YUAN DO, JACK K 692.81 Dermatitis Due To Cosmetics 08/17/2008 JOSIAH SLOPE RUNNER, RASHEED S 465.9 Acute Upper Respiratory Infections Of Unspecified Site 08/17/2008 JOSIAH SLOPE RUNNER, RASHEED S 692.81 Dermatitis Due To Cosmetics 08/17/2008 JOSIAH SLOPE RUNNER, RASHEED S 465.9 Acute Upper Respiratory Infections Of Unspecified Site 08/17/2008 JOSIAH SLOPE RUNNER, RASHEED S 692.81 Dermatitis Due To Cosmetics 08/17/2008 MADL SLOPE RUNNER, NANCY L 465.9 Acute Upper Respiratory Infections Of Unspecified Site 08/17/2008 MADL SLOPE RUNNER, NANCY L 692.81 Dermatitis Due To Cosmetics 08/17/2008 JOSIAH SLOPE RUNNER, RASHEED S 465.9 Acute Upper Respiratory Infections Of Unspecified Site 08/17/2008 JOSIAH SLOPE RUNNER, RASHEED S 692.81 Dermatitis Due To Cosmetics 08/17/2008 JOSIAH SLOPE RUNNER, RASHEED S 465.9 Acute Upper Respiratory Infections Of Unspecified Site 08/17/2008 JOSIAH SLOPE RUNNER, RASHEED S 692.81 Dermatitis Due To Cosmetics 08/17/2008 YUAN DO, JACK K 465.9 Acute Upper Respiratory Infections Of Unspecified Site 08/17/2008 YUAN DO, JACK K 692.81 Dermatitis Due To Cosmetics 08/17/2008 JOSIAH SLOPE RUNNER, RASHEED S 465.9 Acute Upper Respiratory Infections Of Unspecified Site 08/17/2008 JOSIAH SLOPE RUNNER, RASHEED S 692.81 Dermatitis Due To Cosmetics 08/17/2008 JOSIAH SLOPE RUNNER, RASHEED S 465.9 Acute Upper Respiratory Infections Of Unspecified Site 08/17/2008 JOSIAH SLOPE RUNNER, RASHEED S 692.81 Dermatitis Due To Cosmetics 08/17/2008 ARIAS GRAJEDA MD 465.9 Acute Upper Respiratory Infections Of Unspecified Site 08/17/2008 ARIAS GRAJEDA MD 692.81 Dermatitis Due To Cosmetics 08/17/2008 JOSIAH SLOPE RUNNER, RASHEED S 465.9 Acute Upper Respiratory Infections Of Unspecified Site 08/17/2008 JOSIAH SLOPE RUNNER, RASHEED S 692.81 Dermatitis Due To Cosmetics 08/17/2008 JOISAH SLOPE RUNNER, RASHEED S 465.9 Acute Upper Respiratory Infections Of Unspecified Site 08/17/2008 JOSIAH SLOPE RUNNER, RASHEED S 692.81 Dermatitis Due To Cosmetics 08/17/2008 YUAN DO, JACK K 465.9 Acute Upper Respiratory Infections Of Unspecified Site 08/17/2008 YUAN DO, JACK K 692.81 Dermatitis Due To Cosmetics 08/17/2008 JOSIAH SLOPE RUNNER, RASHEED S 465.9 Acute Upper Respiratory Infections Of Unspecified Site 08/17/2008 JOSIAH SLOPE RUNNER, RASHEED S 692.81 Dermatitis Due To Cosmetics 08/17/2008 JOSIAH SLOPE RUNNER, RASHEED S 465.9 Acute Upper Respiratory Infections Of Unspecified Site 08/17/2008 JOSIAH SLOPE RUNNER, RASHEED S 692.81 Dermatitis Due To Cosmetics 08/17/2008 JOSIAH SLOPE RUNNER, RASHEED S 465.9 Acute Upper Respiratory Infections Of Unspecified Site 08/17/2008 JOSIAH SLOPE RUNNER, RASHEED S 692.81 Dermatitis Due To Cosmetics 10/27/2008 JOSIAH SLOPE RUNNER, RASHEED S 696.1 Other Psoriasis And Similar Disorders 10/27/2008 JOSIAH SLOPE RUNNER, RASHEED S 704.00 Alopecia Unspecified 10/27/2008 696.1 Other Psoriasis And Similar Disorders 10/27/2008 704.00 Alopecia Unspecified 10/27/2008 JOSIAH SLOPE RUNNER, RASHEED S 696.1 Other Psoriasis And Similar Disorders 10/27/2008 JOSIAH COVARRUBIASN, RASHEED S 704.00 Alopecia Unspecified 10/27/2008 696.1 Other Psoriasis And Similar Disorders 10/27/2008 704.00 Alopecia Unspecified 10/27/2008 696.1 Other Psoriasis And Similar Disorders 10/27/2008 704.00 Alopecia Unspecified 10/27/2008 JOSIAH COVARRUBIASN, RASHEED S 696.1 Other Psoriasis And Similar Disorders 10/27/2008 JOSIAH SLOPE RUNNER, RASHEED S 704.00 Alopecia Unspecified 10/27/2008 JOSIAH SLOPE RUNNER, RASHEED S 696.1 Other Psoriasis And Similar Disorders 10/27/2008 JOSIAH SLOPE RUNNER, RASHEED S 704.00 Alopecia Unspecified 10/27/2008 JOSIAH SLOPE RUNNER, RASHEED S 696.1 Other Psoriasis And Similar Disorders 10/27/2008 JOSIAH SLOPE RUNNER, RASHEED S 704.00 Alopecia Unspecified 10/27/2008 JOSIAH SLOPE RUNNER, RASHEED S 696.1 Other Psoriasis And Similar Disorders 10/27/2008 JOSIAH SLOPE RUNNER, RASHEED S 704.00 Alopecia Unspecified 10/27/2008 JOSIAH SLOPE RUNNER, RASHEED S 696.1 Other Psoriasis And Similar Disorders 10/27/2008 JOSIAH SLOPE RUNNER, RASHEED S 704.00 Alopecia Unspecified 10/27/2008 BYRON ESCOTO, AMINA Marr 696.1 Other Psoriasis And Similar Disorders 10/27/2008 BYRON ESCOTO, AMINA Marr 704.00 Alopecia Unspecified 10/27/2008 YUAN DO, JACK K 696.1 Other Psoriasis And Similar Disorders 10/27/2008 YUAN DO, JACK K 704.00 Alopecia Unspecified 10/27/2008 JOSIAH SLOPE RUNNER, RASHEED S 696.1 Other Psoriasis And Similar Disorders 10/27/2008 JOSIAH SLOPE RUNNER, RASHEED S 704.00 Alopecia Unspecified 10/27/2008 JOSIAH SLOPE RUNNER, RASHEED S 696.1 Other Psoriasis And Similar Disorders 10/27/2008 JOSIAH SLOPE RUNNER, RASHEED S 704.00 Alopecia Unspecified 10/27/2008 MADL SLOPE RUNNER, NANCY L 696.1 Other Psoriasis And Similar Disorders 10/27/2008 MADL SLOPE RUNNER, NANCY L 704.00 Alopecia Unspecified 10/27/2008 JOSIAH SLOPE RUNNER, RASHEED S 696.1 Other Psoriasis And Similar Disorders 10/27/2008 JOSIAH SLOPE RUNNER, RASHEED S 704.00 Alopecia Unspecified 10/27/2008 JOSIAH SLOPE RUNNER, RASHEED S 696.1 Other Psoriasis And Similar Disorders 10/27/2008 JOSIAH SLOPE RUNNER, RASHEED S 704.00 Alopecia Unspecified 10/27/2008 YUAN DO, JACK K 696.1 Other Psoriasis And Similar Disorders 10/27/2008 KWABENA HDEZ JACK K 704.00 Alopecia Unspecified 10/27/2008 JOSIAH SLOPE RUNNER, RASHEED S 696.1 Other Psoriasis And Similar Disorders 10/27/2008 JOSIAH SLOPE RUNNER, RASHEED S 704.00 Alopecia Unspecified 10/27/2008 JOSIAH SLOPE RUNNER, RASHEED S 696.1 Other Psoriasis And Similar Disorders 10/27/2008 JOSIAH SLOPE RUNNER, RASHEED S 704.00 Alopecia Unspecified 10/27/2008 NICCI ESOCTO, ARIAS 696.1 Other Psoriasis And Similar Disorders 10/27/2008 ARIAS GRAJEDA MD 704.00 Alopecia Unspecified 10/27/2008 JOSIAH SLOPE RUNNER, RASHEED S 696.1 Other Psoriasis And Similar Disorders 10/27/2008 JOSIAH SLOPE RUNNER, RASHEED S 704.00 Alopecia Unspecified 10/27/2008 JOSIAH SLOPE RUNNER, RASHEED S 696.1 Other Psoriasis And Similar Disorders 10/27/2008 JOSIAH SLOPE RUNNER, RASHEED S 704.00 Alopecia Unspecified 10/27/2008 YUAN DO, JACK K 696.1 Other Psoriasis And Similar Disorders 10/27/2008 YUAN DO, JACK K 704.00 Alopecia Unspecified 10/27/2008 JOSIAH SLOPE RUNNER, RASHEED S 696.1 Other Psoriasis And Similar Disorders 10/27/2008 JOSIAH SLOPE RUNNER, RASHEED S 704.00 Alopecia Unspecified 10/27/2008 JOSIAH SLOPE RUNNER, RASHEED S 696.1 Other Psoriasis And Similar Disorders 10/27/2008 JOSIAH SLOPE RUNNER, RASHEED S 704.00 Alopecia Unspecified 10/27/2008 JOSIAH SLOPE RUNNER, RASHEED S 696.1 Other Psoriasis And Similar Disorders 10/27/2008 JOSIAH SLOPE RUNNER, RASHEED S 704.00 Alopecia Unspecified 12/14/2008 JOSIAH SLOPE RUNNER, RASHEED S 682.3 Cellulitis And Abscess Of Upper Arm And Forearm 12/14/2008 682.3 Cellulitis And Abscess Of Upper Arm And Forearm 12/14/2008 JOSIAH SLOPE RUNNER, RASHEED S 682.3 Cellulitis And Abscess Of Upper Arm And Forearm 12/14/2008 682.3 Cellulitis And Abscess Of Upper Arm And Forearm 12/14/2008 682.3 Cellulitis And Abscess Of Upper Arm And Forearm 12/14/2008 JOSIAH SLOPE RUNNER, RASHEED S 682.3 Cellulitis And Abscess Of Upper Arm And Forearm 12/14/2008 JOSIAH SLOPE RUNNER, RASHEED S 682.3 Cellulitis And Abscess Of Upper Arm And Forearm 12/14/2008 JOSIAH SLOPE RUNNER, RASHEED S 682.3 Cellulitis And Abscess Of Upper Arm And Forearm 12/14/2008 JOSIAH SLOPE RUNNER, RASHEED S 682.3 Cellulitis And Abscess Of Upper Arm And Forearm 12/14/2008 JOSIAH SLOPE RUNNER, RASHEED S 682.3 Cellulitis And Abscess Of Upper Arm And Forearm 12/14/2008 BYRON ESCOTO, AMINA Marr 682.3 Cellulitis And Abscess Of Upper Arm And Forearm 12/14/2008 JACK YUAN DO 682.3 Cellulitis And Abscess Of Upper Arm And Forearm 12/14/2008 JOSIAH SLOPE RUNNER, RASHEED S 682.3 Cellulitis And Abscess Of Upper Arm And Forearm 12/14/2008 JOSIAH SLOPE RUNNER, RASHEED S 682.3 Cellulitis And Abscess Of Upper Arm And Forearm 12/14/2008 JACLYN COVARRUBIASNNANCY 682.3 Cellulitis And Abscess Of Upper Arm And Forearm 12/14/2008 JOSIAH SLOPE RUNNER, RASHEED S 682.3 Cellulitis And Abscess Of Upper Arm And Forearm 12/14/2008 JOSIAH SLOPE RUNNER, RASHEED S 682.3 Cellulitis And Abscess Of Upper Arm And Forearm 12/14/2008 JACK YUAN DO 682.3 Cellulitis And Abscess Of Upper Arm And Forearm 12/14/2008 JOSIAH SLOPE RUNNER, RASHEED S 682.3 Cellulitis And Abscess Of Upper Arm And Forearm 12/14/2008 JOSIAH SLOPE RUNNER, RASHEED S 682.3 Cellulitis And Abscess Of Upper Arm And Forearm 12/14/2008 NICCI ESCOTO, ARIAS 682.3 Cellulitis And Abscess Of Upper Arm And Forearm 12/14/2008 JOSIAH SLOPE RUNNER, RASHEED S 682.3 Cellulitis And Abscess Of Upper Arm And Forearm 12/14/2008 OJSIAH SLOPE RUNNER, RASHEED S 682.3 Cellulitis And Abscess Of Upper Arm And Forearm 12/14/2008 JACK YUAN DO 682.3 Cellulitis And Abscess Of Upper Arm And Forearm 12/14/2008 JOSIAH SLOPE RUNNER, RASHEED S 682.3 Cellulitis And Abscess Of Upper Arm And Forearm 12/14/2008 JOSIAH SLOPE RUNNER, RASHEED S 682.3 Cellulitis And Abscess Of Upper Arm And Forearm 12/14/2008 JOSIAH SLOPE RUNNER, RASHEED S 682.3 Cellulitis And Abscess Of Upper Arm And Forearm 08/03/2009 JOSIAH COVARRUBIASN, RASHEED S 496 CHRONIC OBSTRUCTIVE PULMONARY DISEASE 08/03/2009 496 CHRONIC OBSTRUCTIVE PULMONARY DISEASE 08/03/2009 JOSIAH SLOPE RUNNER, RASHEED S 496 CHRONIC OBSTRUCTIVE PULMONARY DISEASE 08/03/2009 496 CHRONIC OBSTRUCTIVE PULMONARY DISEASE 08/03/2009 496 CHRONIC OBSTRUCTIVE PULMONARY DISEASE 08/03/2009 JOSIAH SLOPE RUNNER, RASHEED S 496 CHRONIC OBSTRUCTIVE PULMONARY DISEASE 08/03/2009 JOSIAH SLOPE RUNNER, RASHEED S 496 CHRONIC OBSTRUCTIVE PULMONARY DISEASE 08/03/2009 JOSIAH SLOPE RUNNER, RASHEED S 496 CHRONIC OBSTRUCTIVE PULMONARY DISEASE 08/03/2009 JOSIAH SLOPE RUNNER, RASHEED S 496 CHRONIC OBSTRUCTIVE PULMONARY DISEASE 08/03/2009 JOSIAH SLOPE RUNNER, RASHEED S 496 CHRONIC OBSTRUCTIVE PULMONARY DISEASE 08/03/2009 BYRON ESCOTO, AMINA Marr 496 CHRONIC OBSTRUCTIVE PULMONARY DISEASE 08/03/2009 JACK YUAN DO 496 CHRONIC OBSTRUCTIVE PULMONARY DISEASE 08/03/2009 JOSIAH SLOPE RUNNER, RASHEED S 496 CHRONIC OBSTRUCTIVE PULMONARY DISEASE 08/03/2009 JOSIAH SLOPE RUNNER, RASHEED S 496 CHRONIC OBSTRUCTIVE PULMONARY DISEASE 08/03/2009 JACLYN SLOPE RUNNER, NANCY Gordno 496 CHRONIC OBSTRUCTIVE PULMONARY DISEASE 08/03/2009 JOSIAH SLOPE RUNNER, RASHEED S 496 CHRONIC OBSTRUCTIVE PULMONARY DISEASE 08/03/2009 JOSIAH SLOPE RUNNER, RASHEED S 496 CHRONIC OBSTRUCTIVE PULMONARY DISEASE 08/03/2009 JACK YUAN DO K 496 CHRONIC OBSTRUCTIVE PULMONARY DISEASE 08/03/2009 JOSIAH SLOPE RUNNER, RASHEED S 496 CHRONIC OBSTRUCTIVE PULMONARY DISEASE 08/03/2009 JOSIAH SLOPE RUNNER, RASHEED S 496 CHRONIC OBSTRUCTIVE PULMONARY DISEASE 08/03/2009 ARIAS GRAJEDA MD 496 CHRONIC OBSTRUCTIVE PULMONARY DISEASE 08/03/2009 JOSIAH SLOPE RUNNER, RASHEED S 496 CHRONIC OBSTRUCTIVE PULMONARY DISEASE 08/03/2009 JOSIAH SLOPE RUNNER, RASHEED S 496 CHRONIC OBSTRUCTIVE PULMONARY DISEASE 08/03/2009 JACK YUAN DO K 496 CHRONIC OBSTRUCTIVE PULMONARY DISEASE 08/03/2009 JOSIAH SLOPE RUNNER, RASHEED S 496 CHRONIC OBSTRUCTIVE PULMONARY DISEASE 08/03/2009 JOSIAH SLOPE RUNNER, RASHEED S 496 CHRONIC OBSTRUCTIVE PULMONARY DISEASE 08/03/2009 JOSIAH SLOPE RUNNER, RASHEED S 496 CHRONIC OBSTRUCTIVE PULMONARY DISEASE 04/05/2010 JOSIAH SLOPE RUNNER, RASHEED S 535.40 Other Specified Gastritis (without Hemorrhage) 04/05/2010 535.40 Other Specified Gastritis (without Hemorrhage) 04/05/2010 JOSIAH SLOPE RUNNER, RASHEED S 535.40 Other Specified Gastritis (without Hemorrhage) 04/05/2010 535.40 Other Specified Gastritis (without Hemorrhage) 04/05/2010 535.40 Other Specified Gastritis (without Hemorrhage) 04/05/2010 JOSIAH SLOPE RUNNER, RASHEED S 535.40 Other Specified Gastritis (without Hemorrhage) 04/05/2010 JOSIAH SLOPE RUNNER, RASHEED S 535.40 Other Specified Gastritis (without Hemorrhage) 04/05/2010 JOSIAH SLOPE RUNNER, RASHEED S 535.40 Other Specified Gastritis (without Hemorrhage) 04/05/2010 JOSIAH SLOPE RUNNER, RASHEED S 535.40 Other Specified Gastritis (without Hemorrhage) 04/05/2010 JOSIAH SLOPE RUNNER, RASHEED S 535.40 Other Specified Gastritis (without Hemorrhage) 04/05/2010 AMINA MATTHEWS MD 535.40 Other Specified Gastritis (without Hemorrhage) 04/05/2010 JACK YUAN DO 535.40 Other Specified Gastritis (without Hemorrhage) 04/05/2010 JOSIAH SLOPE RUNNER, RASHEED S 535.40 Other Specified Gastritis (without Hemorrhage) 04/05/2010 JOSIAH SLOPE RUNNER, RASHEED S 535.40 Other Specified Gastritis (without Hemorrhage) 04/05/2010 NANCY ANAYA APRN L 535.40 Other Specified Gastritis (without Hemorrhage) 04/05/2010 JOSIAH SLOPE RUNNER, RASHEED S 535.40 Other Specified Gastritis (without Hemorrhage) 04/05/2010 JOSIAH SLOPE RUNNER, RASHEED S 535.40 Other Specified Gastritis (without Hemorrhage) 04/05/2010 JACK YUAN DO 535.40 Other Specified Gastritis (without Hemorrhage) 04/05/2010 JOSIAH SLOPE RUNNER, RASHEED S 535.40 Other Specified Gastritis (without Hemorrhage) 04/05/2010 JOSIAH SLOPE RUNNER, RASHEED S 535.40 Other Specified Gastritis (without Hemorrhage) 04/05/2010 ARIAS GRAJEDA MD 535.40 Other Specified Gastritis (without Hemorrhage) 04/05/2010 JOSIAH SLOPE RUNNER, RASHEED S 535.40 Other Specified Gastritis (without Hemorrhage) 04/05/2010 JOSIAH SLOPE RUNNER, RASHEED S 535.40 Other Specified Gastritis (without Hemorrhage) 04/05/2010 YUAN DO, JACK K 535.40 Other Specified Gastritis (without Hemorrhage) 04/05/2010 JOSIAH SLOPE RUNNER, RASHEED S 535.40 Other Specified Gastritis (without Hemorrhage) 04/05/2010 JOSIAH SLOPE RUNNER, RASHEED S 535.40 Other Specified Gastritis (without Hemorrhage) 04/05/2010 JOSIAH SLOPE RUNNER RASHEED S 535.40 Other Specified Gastritis (without Hemorrhage) 05/23/2010 JOSIAH SLOPE RUNNER, RASHEED S V18.0 FAM HX DIABETES MELLITUS 05/23/2010 V18.0 FAM HX DIABETES MELLITUS 05/23/2010 JOSIAH SLOPE RUNNER RASHEED S V18.0 FAM HX DIABETES MELLITUS 05/23/2010 V18.0 FAM HX DIABETES MELLITUS 05/23/2010 V18.0 FAM HX DIABETES MELLITUS 05/23/2010 JOSIAH SLOPE RUNNERNAKIARASHEED S V18.0 FAM HX DIABETES MELLITUS 05/23/2010 JOSIAH SLOPE RUNNERNAKIARASHEED S V18.0 FAM HX DIABETES MELLITUS 05/23/2010 JOSIAH SLOPE RUNNER RASHEED S V18.0 FAM HX DIABETES MELLITUS 05/23/2010 JOSIAH SLOPE RUNNERNAKIARASHEED S V18.0 FAM HX DIABETES MELLITUS 05/23/2010 NAKIA RAHMAN APRNNDA S V18.0 FAM HX DIABETES MELLITUS 05/23/2010 AMINA MATTHEWS MD V18.0 FAM HX DIABETES MELLITUS 05/23/2010 JACK YUAN DO K V18.0 FAM HX DIABETES MELLITUS 05/23/2010 JOSIAH SLOPE RUNNER RASHEED S V18.0 FAM HX DIABETES MELLITUS 05/23/2010 JOSIAH SLOPE RUNNER RASHEED S V18.0 FAM HX DIABETES MELLITUS 05/23/2010 NANCY ANAYA APRN V18.0 FAM HX DIABETES MELLITUS 05/23/2010 JOSIAH SLOPE RUNNER, RASHEED S V18.0 FAM HX DIABETES MELLITUS 05/23/2010 JOSIAH SLOPE RUNNER, RASHEED S V18.0 FAM HX DIABETES MELLITUS 05/23/2010 JACK YUAN DO K V18.0 FAM HX DIABETES MELLITUS 05/23/2010 JOSIAH SLOPE RUNNER RASHEED S V18.0 FAM HX DIABETES MELLITUS 05/23/2010 JOSIAH COVARRUBIASN, RASHEED S V18.0 FAM HX DIABETES MELLITUS 05/23/2010 ARIAS GRAJEDA MD V18.0 FAM HX DIABETES MELLITUS 05/23/2010 JOSIAH SLOPE RUNNER, RASHEED S V18.0 FAM HX DIABETES MELLITUS 05/23/2010 JOSIAH SLOPE RUNNER, RASHEED S V18.0 FAM HX DIABETES MELLITUS 05/23/2010 JACK YUAN DO V18.0 FAM HX DIABETES MELLITUS 05/23/2010 JOSIAH SLOPE RUNNER, RASHEED S V18.0 FAM HX DIABETES MELLITUS 05/23/2010 JOSIAH SLOPE RUNNER, RASHEED S V18.0 FAM HX DIABETES MELLITUS 05/23/2010 JOSIAH SLOPE RUNNER, RASHEED S V18.0 FAM HX DIABETES MELLITUS 10/25/2010 JOSIAH LERNER RASHEED S 780.57 Unspecified Sleep Apnea 10/25/2010 JOSIAH LERNER, RASHEED S 780.79 Fatigue 10/25/2010 JOSIAH LERNER, RASHEED S 787.91 Diarrhea 10/25/2010 JOSIAH COVARRUBIASN, RASHEED S 788.1 Dysuria 10/25/2010 JOSIAH COVARRUBIASN, RASHEED S 799.02 Hypoxemia 10/25/2010 780.57 Unspecified Sleep Apnea 10/25/2010 780.79 Fatigue 10/25/2010 787.91 Diarrhea 10/25/2010 788.1 Dysuria 10/25/2010 799.02 Hypoxemia 10/25/2010 JOSIAH LERNER, RASHEED S 780.57 Unspecified Sleep Apnea 10/25/2010 JOSIAH COVARRUBIASN, RASHEED S 780.79 Fatigue 10/25/2010 JOSIAH SLOPE RUNNER, RASHEED S 787.91 Diarrhea 10/25/2010 JOSIAH COVARRUBIASN, RASHEED S 788.1 Dysuria 10/25/2010 JOSIAH LERNER, RASHEED S 799.02 Hypoxemia 10/25/2010 780.57 Unspecified Sleep Apnea 10/25/2010 780.79 Fatigue 10/25/2010 787.91 Diarrhea 10/25/2010 788.1 Dysuria 10/25/2010 799.02 Hypoxemia 10/25/2010 780.57 Unspecified Sleep Apnea 10/25/2010 780.79 Fatigue 10/25/2010 787.91 Diarrhea 10/25/2010 788.1 Dysuria 10/25/2010 799.02 Hypoxemia 10/25/2010 JOSIAH SLOPE RUNNER, RASHEED S 780.57 Unspecified Sleep Apnea 10/25/2010 JOSIAH SLOPE RUNNER, RASHEED S 780.79 Fatigue 10/25/2010 JOSIAH SLOPE RUNNER, RASHEED S 787.91 Diarrhea 10/25/2010 JOSIAH SLOPE RUNNER, RASHEED S 788.1 Dysuria 10/25/2010 JOSIAH SLOPE RUNNER, RASHEED S 799.02 Hypoxemia 10/25/2010 JOSIAH SLOPE RUNNER, RASHEED S 780.57 Unspecified Sleep Apnea 10/25/2010 JOSIAH SLOPE RUNNER, RASHEED S 780.79 Fatigue 10/25/2010 JOSIAH SLOPE RUNNER, RASHEED S 787.91 Diarrhea 10/25/2010 JOSIAH SLOPE RUNNER, RASHEED S 788.1 Dysuria 10/25/2010 JOSIAH SLOPE RUNNER, RASHEED S 799.02 Hypoxemia 10/25/2010 JOSIAH SLOPE RUNNER, RASHEED S 780.57 Unspecified Sleep Apnea 10/25/2010 JOSIAH SLOPE RUNNER, RASHEED S 780.79 Fatigue 10/25/2010 JOSIAH SLOPE RUNNER, RASHEED S 787.91 Diarrhea 10/25/2010 JOSIAH SLOPE RUNNER, RASHEED S 788.1 Dysuria 10/25/2010 JOSIAH SLOPE RUNNER, RASHEED S 799.02 Hypoxemia 10/25/2010 JOSIAH SLOPE RUNNER, RASHEED S 780.57 Unspecified Sleep Apnea 10/25/2010 JOSIAH SLOPE RUNNER, RASHEED S 780.79 Fatigue 10/25/2010 JOSIAH SLOPE RUNNER, RASHEED S 787.91 Diarrhea 10/25/2010 JOSIAH SLOPE RUNNER, RASHEED S 788.1 Dysuria 10/25/2010 JOSIAH SLOPE RUNNER, RASHEED S 799.02 Hypoxemia 10/25/2010 JOSIAH SLOPE RUNNER, RASHEED S 780.57 Unspecified Sleep Apnea 10/25/2010 JOSIAH SLOPE RUNNER, RASHEED S 780.79 Fatigue 10/25/2010 JOSIAH SLOPE RUNNER, RASHEED S 787.91 Diarrhea 10/25/2010 JOSIAH SLOPE RUNNER, RASHEED S 788.1 Dysuria 10/25/2010 JOSIAH SLOPE RUNNER, RASHEED S 799.02 Hypoxemia 10/25/2010 AMINA MATTHEWS MD 780.57 Unspecified Sleep Apnea 10/25/2010 AMINA MATTHEWS MD 780.79 Fatigue 10/25/2010 AMINA MATTHEWS MD 787.91 Diarrhea 10/25/2010 AMINA MATTHESW MD 788.1 Dysuria 10/25/2010 AMINA MATTHEWS MD 799.02 Hypoxemia 10/25/2010 YUAN DO, JACK K 780.57 Unspecified Sleep Apnea 10/25/2010 YUAN DO, JACK K 780.79 Fatigue 10/25/2010 YUAN DO, JACK K 787.91 Diarrhea 10/25/2010 YUAN DO, JACK K 788.1 Dysuria 10/25/2010 YUAN DO, JACK K 799.02 Hypoxemia 10/25/2010 JOSIAH SLOPE RUNNER, RASHEED S 780.57 Unspecified Sleep Apnea 10/25/2010 JOSIAH SLOPE RUNNER, RASHEED S 780.79 Fatigue 10/25/2010 JOSIAH SLOPE RUNNER, RASHEED S 787.91 Diarrhea 10/25/2010 JOSIAH SLOPE RUNNER, RASHEED S 788.1 Dysuria 10/25/2010 JOSIAH SLOPE RUNNER, RASHEED S 799.02 Hypoxemia 10/25/2010 JOSIAH SLOPE RUNNER, RASHEED S 780.57 Unspecified Sleep Apnea 10/25/2010 JOSIAH SLOPE RUNNER, RASHEED S 780.79 Fatigue 10/25/2010 JOSIAH SLOPE RUNNER, RASHEED S 787.91 Diarrhea 10/25/2010 JOSIAH SLOPE RUNNER, RASHEED S 788.1 Dysuria 10/25/2010 JOSIAH SLOPE RUNNER, RASHEED S 799.02 Hypoxemia 10/25/2010 MADL SLOPE RUNNER, NANCY L 780.57 Unspecified Sleep Apnea 10/25/2010 MADL SLOPE RUNNER, NANCY L 780.79 Fatigue 10/25/2010 MADL SLOPE RUNNER, NANCY L 787.91 Diarrhea 10/25/2010 MADL SLOPE RUNNER, NANCY L 788.1 Dysuria 10/25/2010 MADL SLOPE RUNNER, NANCY L 799.02 Hypoxemia 10/25/2010 JOSIAH SLOPE RUNNER, RASHEED S 780.57 Unspecified Sleep Apnea 10/25/2010 JSOIAH SLOPE RUNNER, RASHEED S 780.79 Fatigue 10/25/2010 JOSIAH SLOPE RUNNER, RASHEED S 787.91 Diarrhea 10/25/2010 JOSIAH SLOPE RUNNER, RASHEED S 788.1 Dysuria 10/25/2010 JOSIAH SLOPE RUNNER, RASHEED S 799.02 Hypoxemia 10/25/2010 JOSIAH SLOPE RUNNER, RASHEED S 780.57 Unspecified Sleep Apnea 10/25/2010 JOSIAH SLOPE RUNNER, RASHEED S 780.79 Fatigue 10/25/2010 JOSIAH SLOPE RUNNER, RASHEED S 787.91 Diarrhea 10/25/2010 JOSIAH SLOPE RUNNER, RASHEED S 788.1 Dysuria 10/25/2010 JOSIAH SLOPE RUNNER, RASHEED S 799.02 Hypoxemia 10/25/2010 YUAN DO, JACK K 780.57 Unspecified Sleep Apnea 10/25/2010 YUAN DO, JACK K 780.79 Fatigue 10/25/2010 YUAN DO, JACK K 787.91 Diarrhea 10/25/2010 YUAN DO, JACK K 788.1 Dysuria 10/25/2010 YUAN DO, JACK K 799.02 Hypoxemia 10/25/2010 JOSIAH SLOPE RUNNER, RASHEED S 780.57 Unspecified Sleep Apnea 10/25/2010 JOSIAH SLOPE RUNNER, RASHEED S 780.79 Fatigue 10/25/2010 JOSIAH SLOPE RUNNER, RASHEED S 787.91 Diarrhea 10/25/2010 JOSIAH SLOPE RUNNER, RASHEED S 788.1 Dysuria 10/25/2010 JOSIAH SLOPE RUNNER, RASHEED S 799.02 Hypoxemia 10/25/2010 JOSIAH SLOPE RUNNER, RASHEED S 780.57 Unspecified Sleep Apnea 10/25/2010 JOSIAH SLOPE RUNNER, RASHEED S 780.79 Fatigue 10/25/2010 JOSIAH SLOPE RUNNER, RASHEED S 787.91 Diarrhea 10/25/2010 JOSIAH SLOPE RUNNER, RASHEED S 788.1 Dysuria 10/25/2010 JOSIAH SLOPE RUNNER, RASHEED S 799.02 Hypoxemia 10/25/2010 ARIAS GRAJEDA MD 780.57 Unspecified Sleep Apnea 10/25/2010 NICCI ESCOTO, ARIAS 780.79 Fatigue 10/25/2010 NICCI ESCOTO, ARISA 787.91 Diarrhea 10/25/2010 NICCI ESCOTO, ARIAS 788.1 Dysuria 10/25/2010 ARIAS GRAJEDA MD 799.02 Hypoxemia 10/25/2010 JOSIAH SLOPE RUNNER, RASHEED S 780.57 Unspecified Sleep Apnea 10/25/2010 JOSIAH SLOPE RUNNER, RASHEED S 780.79 Fatigue 10/25/2010 JOSIAH SLOPE RUNNER, RASHEED S 787.91 Diarrhea 10/25/2010 JOSIAH SLOPE RUNNER, RASHEED S 788.1 Dysuria 10/25/2010 JOSIAH SLOPE RUNNER, RASHEED S 799.02 Hypoxemia 10/25/2010 JOSIAH SLOPE RUNNER, RASHEED S 780.57 Unspecified Sleep Apnea 10/25/2010 JOSIAH SLOPE RUNNER, RASHEED S 780.79 Fatigue 10/25/2010 JOSIAH SLOPE RUNNER, RASHEED S 787.91 Diarrhea 10/25/2010 JOSIAH SLOPE RUNNER, RASHEED S 788.1 Dysuria 10/25/2010 JOSIAH SLOPE RUNNER, RASHEED S 799.02 Hypoxemia 10/25/2010 YUAN DO, JACK K 780.57 Unspecified Sleep Apnea 10/25/2010 YUAN DO, JACK K 780.79 Fatigue 10/25/2010 YUAN DO, JACK K 787.91 Diarrhea 10/25/2010 YUAN DO, JACK K 788.1 Dysuria 10/25/2010 YUAN DO, JACK K 799.02 Hypoxemia 10/25/2010 JOSIAH SLOPE RUNNER, RASHEED S 780.57 Unspecified Sleep Apnea 10/25/2010 JOSIAH SLOPE RUNNER, RASHEED S 780.79 Fatigue 10/25/2010 JOSIAH SLOPE RUNNER, RASHEED S 787.91 Diarrhea 10/25/2010 JOSIAH SLOPE RUNNER, RASHEED S 788.1 Dysuria 10/25/2010 JOSIAH SLOPE RUNNER, RASHEED S 799.02 Hypoxemia 10/25/2010 JOSIAH SLOPE RUNNER, RASHEED S 780.57 Unspecified Sleep Apnea 10/25/2010 JOSIAH SLOPE RUNNER, RASHEED S 780.79 Fatigue 10/25/2010 JOSIAH SLOPE RUNNER, RASHEED S 787.91 Diarrhea 10/25/2010 JOSIAH SLOPE RUNNER, RASHEED S 788.1 Dysuria 10/25/2010 JOSIAH SLOPE RUNNER, RASHEED S 799.02 Hypoxemia 10/25/2010 JOSIAH SLOPE RUNNER, RASHEED S 780.57 Unspecified Sleep Apnea 10/25/2010 JOSIAH SLOPE RUNNER, RASHEED S 780.79 Fatigue 10/25/2010 JOSIAH SLOPE RUNNER, RASHEED S 787.91 Diarrhea 10/25/2010 JOSIAH SLOPE RUNNER, RASHEED S 788.1 Dysuria 10/25/2010 JOSIAH SLOPE RUNNER, RASHEED S 799.02 Hypoxemia 12/20/2010 JOSIAH SLOPE RUNNER, RASHEED S 719.46 joint pain, localized in the knee 12/20/2010 719.46 joint pain, localized in the knee 12/20/2010 JOSIAH SLOPE RUNNER, RASHEED S 719.46 joint pain, localized in the knee 12/20/2010 719.46 joint pain, localized in the knee 12/20/2010 719.46 joint pain, localized in the knee 12/20/2010 JOSIAH SLOPE RUNNER, RASHEED S 719.46 joint pain, localized in the knee 12/20/2010 JOSIAH SLOPE RUNNER, RASHEED S 719.46 joint pain, localized in the knee 12/20/2010 JOSIAH SLOPE RUNNER, RASHEED S 719.46 joint pain, localized in the knee 12/20/2010 JOSIAH SLOPE RUNNER, RASHEED S 719.46 joint pain, localized in the knee 12/20/2010 JOSIAH SLOPE RUNNER, RASHEED S 719.46 joint pain, localized in the knee 12/20/2010 BYRON ESCOTO, AMINA Marr 719.46 joint pain, localized in the knee 12/20/2010 JACK YUAN DO 719.46 joint pain, localized in the knee 12/20/2010 JOSIAH SLOPE RUNNER, RASHEED S 719.46 joint pain, localized in the knee 12/20/2010 JOSIAH SLOPE RUNNER, RASHEED S 719.46 joint pain, localized in the knee 12/20/2010 LILLYL SLOPE RUNNER, NANCY L 719.46 joint pain, localized in the knee 12/20/2010 JOSIAH SLOPE RUNNER, RASHEED S 719.46 joint pain, localized in the knee 12/20/2010 JOSIAH SLOPE RUNNER, RASHEED S 719.46 joint pain, localized in the knee 12/20/2010 YUAN DO JACK K 719.46 joint pain, localized in the knee 12/20/2010 JOSIAH SLOPE RUNNER, RASHEED S 719.46 joint pain, localized in the knee 12/20/2010 JOSIAH SLOPE RUNNER, RASHEED S 719.46 joint pain, localized in the knee 12/20/2010 ARIAS GRAJEDA MD 719.46 joint pain, localized in the knee 12/20/2010 JOSIAH SLOPE RUNNER, RASHEED S 719.46 joint pain, localized in the knee 12/20/2010 JOSIAH SLOPE RUNNER, RASHEED S 719.46 joint pain, localized in the knee 12/20/2010 YUAN DO JACK K 719.46 joint pain, localized in the knee 12/20/2010 JOSIAH SLOPE RUNNER, RASHEED S 719.46 joint pain, localized in the knee 12/20/2010 JOSIAH SLOPE RUNNER, RASHEED S 719.46 joint pain, localized in the knee 12/20/2010 JOSIAH SLOPE RUNNER, RASHEED S 719.46 joint pain, localized in the knee 03/28/2011 JOSIAH LERNER, RASHEED S 401.1 ESSENTIAL HYPERTENSION BENIGN 03/28/2011 JOSIAH SLOPE RUNNER, RASHEED S 724.2 LUMBAGO 03/28/2011 JOSIAH LERNER, RASHEED S V04.81 Flu Dx (3 Yrs And Above, Im) 03/28/2011 401.1 ESSENTIAL HYPERTENSION BENIGN 03/28/2011 724.2 LUMBAGO 03/28/2011 V04.81 Flu Dx (3 Yrs And Above, Im) 03/28/2011 JOSIAH LERNER RASHEED S 401.1 ESSENTIAL HYPERTENSION BENIGN 03/28/2011 JOSIAH COVARRUBIASN, RASHEED S 724.2 LUMBAGO 03/28/2011 JOSIAH SLOPE RUNNER, RASHEED S V04.81 Flu Dx (3 Yrs And Above, Im) 03/28/2011 401.1 ESSENTIAL HYPERTENSION BENIGN 03/28/2011 724.2 LUMBAGO 03/28/2011 V04.81 Flu Dx (3 Yrs And Above, Im) 03/28/2011 401.1 ESSENTIAL HYPERTENSION BENIGN 03/28/2011 724.2 LUMBAGO 03/28/2011 V04.81 Flu Dx (3 Yrs And Above, Im) 03/28/2011 JOSIAH SLOPE RUNNERNAKIARASHEED S 401.1 ESSENTIAL HYPERTENSION BENIGN 03/28/2011 JOSIAH SLOPE RUNNER, RASHEED S 724.2 LUMBAGO 03/28/2011 JOSIAH SLOPE RUNNER, RASHEED S V04.81 Flu Dx (3 Yrs And Above, Im) 03/28/2011 JOSIAH SLOPE RUNNER, RASHEED S 401.1 ESSENTIAL HYPERTENSION BENIGN 03/28/2011 JOSIAH LERNER, RASHEED S 724.2 LUMBAGO 03/28/2011 JOSIAH SLOPE RUNNER, RASHEED S V04.81 Flu Dx (3 Yrs And Above, Im) 03/28/2011 JOSIAH COVARRUBIASNNAKIARASHEED S 401.1 ESSENTIAL HYPERTENSION BENIGN 03/28/2011 JOSIAH SLOPE RUNNER, RASHEED S 724.2 LUMBAGO 03/28/2011 JOSIAH SLOPE RUNNER, RASHEED S V04.81 Flu Dx (3 Yrs And Above, Im) 03/28/2011 NAKIA RAHMAN APRNNDA S 401.1 ESSENTIAL HYPERTENSION BENIGN 03/28/2011 JOSIAH SLOPE RUNNER, RASHEED S 724.2 LUMBAGO 03/28/2011 JOSIAH SLOPE RUNNER, RASHEED S V04.81 Flu Dx (3 Yrs And Above, Im) 03/28/2011 JOSIAH SLOPE RUNNER RASHEED S 401.1 ESSENTIAL HYPERTENSION BENIGN 03/28/2011 JOSIAH SLOPE RUNNER, RASHEED S 724.2 LUMBAGO 03/28/2011 JOSIAH SLOPE RUNNER, RASHEED S V04.81 Flu Dx (3 Yrs [...] (3 Yrs And Above, Im) 03/28/2011 JOSIAH SLOPE RUNNER, RASHEED S 401.1 ESSENTIAL HYPERTENSION BENIGN 03/28/2011 JOSIAH SLOPE RUNNER, RASHEED S 724.2 LUMBAGO 03/28/2011 JOSIAH SLOPE RUNNER, RASHEED S V04.81 Flu Dx (3 Yrs And Above, Im) 03/28/2011 JOSIAH SLOPE RUNNER, RASHEED S 401.1 ESSENTIAL HYPERTENSION BENIGN 03/28/2011 JOSIAH SLOPE RUNNER, RASHEED S 724.2 LUMBAGO 03/28/2011 JOSIAH SLOPE RUNNER, RASHEED S V04.81 Flu Dx (3 Yrs And Above, Im) 03/28/2011 MADL SLOPE RUNNER, NANCY L 401.1 ESSENTIAL HYPERTENSION BENIGN 03/28/2011 MADL SLOPE RUNNER, NANCY L 724.2 LUMBAGO 03/28/2011 MADL SLOPE RUNNER, NANCY L V04.81 Flu Dx (3 Yrs And Above, Im) 03/28/2011 JOSIAH SLOPE RUNNER, RASHEED S 401.1 ESSENTIAL HYPERTENSION BENIGN 03/28/2011 JOSIAH SLOPE RUNNER, RASHEED S 724.2 LUMBAGO 03/28/2011 JOSIAH SLOPE RUNNER, RASHEED S V04.81 Flu Dx (3 Yrs And Above, Im) 03/28/2011 JOSIAH SLOPE RUNNER, RASHEED S 401.1 ESSENTIAL HYPERTENSION BENIGN 03/28/2011 JOSIAH SLOPE RUNNER, RASHEED S 724.2 LUMBAGO 03/28/2011 JOSIAH SLOPE RUNNER, RASHEED S V04.81 Flu Dx (3 Yrs And Above, Im) 03/28/2011 YAUN DO, JACK K 401.1 ESSENTIAL HYPERTENSION BENIGN 03/28/2011 YUAN DO, JACK K 724.2 LUMBAGO 03/28/2011 YUAN DO, JACK K V04.81 Flu Dx (3 Yrs And Above, Im) 03/28/2011 JOSIAH LERNER RASHEED S 401.1 ESSENTIAL HYPERTENSION BENIGN 03/28/2011 JOSIAH SLOPE RUNNER, RASHEED S 724.2 LUMBAGO 03/28/2011 JOSIAH SLOPE RUNNER, RASHEED S V04.81 Flu Dx (3 Yrs And Above, Im) 03/28/2011 JOSIAH COVARRUBIASN, RASHEED S 401.1 ESSENTIAL HYPERTENSION BENIGN 03/28/2011 JOSIAH SLOPE RUNNER, RASHEED S 724.2 LUMBAGO 03/28/2011 JOSIAH SLOPE RUNNER, RASHEED S V04.81 Flu Dx (3 Yrs [...] S 401.1 ESSENTIAL HYPERTENSION BENIGN 03/28/2011 JOSIAH SLOPE RUNNER, RASHEED S 724.2 LUMBAGO 03/28/2011 JOSIAH SLOPE RUNNER, RASHEED S V04.81 Flu Dx (3 Yrs And Above, Im) 03/28/2011 JOSIAH SLOPE RUNNER, RASHEED S 401.1 ESSENTIAL HYPERTENSION BENIGN 03/28/2011 JOSIAH SLOPE RUNNER, RASHEED S 724.2 LUMBAGO 03/28/2011 JOSIAH SLOPE RUNNER, RASHEED S V04.81 Flu Dx (3 Yrs And Above, Im) 07/20/2011 JOSIAH SLOPE RUNNER, RASHEED S 786.05 SHORTNESS OF BREATH 07/20/2011 786.05 SHORTNESS OF BREATH 07/20/2011 JOSIAH COVARRUBIASN, RASHEED S 786.05 SHORTNESS OF BREATH 07/20/2011 786.05 SHORTNESS OF BREATH 07/20/2011 786.05 SHORTNESS OF BREATH 07/20/2011 JOSIAH COVARRUBIASN, RASHEED S 786.05 SHORTNESS OF BREATH 07/20/2011 JOSIAH SLOPE RUNNER, RASHEED S 786.05 SHORTNESS OF BREATH 07/20/2011 JOSIAH LERNER, RASHEED S 786.05 SHORTNESS OF BREATH 07/20/2011 JOSIAH SLOPE RUNNER, RASHEED S 786.05 SHORTNESS OF BREATH 07/20/2011 JOSIAH SLOPE RUNNER, RASHEED S 786.05 SHORTNESS OF BREATH 07/20/2011 BYRON ESCOTO, AMINA Marr 786.05 SHORTNESS OF BREATH 07/20/2011 JACK YUAN DO 786.05 SHORTNESS OF BREATH 07/20/2011 JOSIAH COVARRUBIASN, RASHEED S 786.05 SHORTNESS OF BREATH 07/20/2011 JOSIAH LERNER, RASHEED S 786.05 SHORTNESS OF BREATH 07/20/2011 NANCY ANAYA APRN 786.05 SHORTNESS OF BREATH 07/20/2011 JOSIAH SLOPE RUNNER, RASHEED S 786.05 SHORTNESS OF BREATH 07/20/2011 JOSIAH LERNER RASHEED S 786.05 SHORTNESS OF BREATH [...] S 041.12 MRSA, METHICILLIN RESISTANT 08/24/2011 JOSIAH SLOPE RUNNER, RASHEED S 780.4 dizziness 08/24/2011 JOSIAH SLOPE RUNNER, RASHEED S 788.33 URGE AND STRESS INCONTINENCE 08/24/2011 041.12 MRSA, METHICILLIN RESISTANT 08/24/2011 780.4 dizziness 08/24/2011 788.33 URGE AND STRESS INCONTINENCE 08/24/2011 041.12 MRSA, METHICILLIN RESISTANT 08/24/2011 780.4 dizziness 08/24/2011 788.33 URGE AND STRESS INCONTINENCE 08/24/2011 JOSIAH SLOPE RUNNER, RASHEED S 041.12 MRSA, METHICILLIN RESISTANT 08/24/2011 JOSIAH SLOPE RUNNER, RASHEED S 780.4 dizziness 08/24/2011 JOSIAH SLOPE RUNNER, RASHEED S 788.33 URGE AND STRESS INCONTINENCE 08/24/2011 JOSIAH SLOPE RUNNER, RASHEED S 041.12 MRSA, METHICILLIN RESISTANT 08/24/2011 JOSIAH SLOPE RUNNER, RASHEED S 780.4 dizziness 08/24/2011 JOSIAH SLOPE RUNNER, RASHEED S 788.33 URGE AND STRESS INCONTINENCE 08/24/2011 JOSIAH SLOPE RUNNER, RASHEED S 041.12 MRSA, METHICILLIN RESISTANT 08/24/2011 JOSIAH SLOPE RUNNER, RASHEED S 780.4 dizziness 08/24/2011 JOSIAH SLOPE RUNNER, RASHEED S 788.33 URGE AND STRESS INCONTINENCE 08/24/2011 JOSIAH SLOPE RUNNER, RASHEED S 041.12 MRSA, METHICILLIN RESISTANT 08/24/2011 JOSIAH SLOPE RUNNER, RASHEED S 780.4 dizziness 08/24/2011 JOSIAH SLOPE RUNNER, RASHEED S 788.33 URGE AND STRESS INCONTINENCE 08/24/2011 JOSIAH SLOPE RUNNER, RASHEED S 041.12 MRSA, METHICILLIN RESISTANT 08/24/2011 JOSIAH SLOPE RUNNER, RASHEED S 780.4 dizziness 08/24/2011 JOSIAH SLOPE RUNNER, RASHEED S 788.33 URGE AND STRESS INCONTINENCE 08/24/2011 AMINA MATTHEWS MD 041.12 MRSA, METHICILLIN RESISTANT 08/24/2011 AMINA MATTHEWS MD 780.4 dizziness 08/24/2011 AMINA MATTHEWS MD 788.33 URGE AND STRESS INCONTINENCE 08/24/2011 YUAN DO, JACK K 041.12 MRSA, METHICILLIN RESISTANT 08/24/2011 YUAN DO, JACK K 780.4 dizziness 08/24/2011 YUAN DO, JACK K 788.33 URGE AND STRESS INCONTINENCE 08/24/2011 JOSIAH SLOPE RUNNER, RASHEED S 041.12 MRSA, METHICILLIN RESISTANT 08/24/2011 JOSIAH SLOPE RUNNER, RASHEED S 780.4 DIZZINESS 08/24/2011 JOSIAH SLOPE RUNNER, RASHEED S 788.33 URGE AND STRESS INCONTINENCE 08/24/2011 JOSIAH SLOPE RUNNER, RASHEED S 041.12 MRSA, METHICILLIN RESISTANT 08/24/2011 JOSIAH SLOPE RUNNER, RASHEED S 780.4 DIZZINESS 08/24/2011 JOSIAH SLOPE RUNNER, RASHEED S 788.33 URGE AND STRESS INCONTINENCE 08/24/2011 MADL SLOPE RUNNER, NANCY L 041.12 MRSA, METHICILLIN RESISTANT 08/24/2011 MADL SLOPE RUNNER, NANCY L 780.4 DIZZINESS 08/24/2011 MADL SLOPE RUNNER, NANCY L 788.33 URGE AND STRESS INCONTINENCE 08/24/2011 JOSIAH SLOPE RUNNER, RASHEED S 041.12 MRSA, METHICILLIN RESISTANT 08/24/2011 JOSIAH SLOPE RUNNER, RASHEED S 780.4 DIZZINESS 08/24/2011 JOSIAH SLOPE RUNNER, RASHEED S 788.33 URGE AND STRESS INCONTINENCE 08/24/2011 JOSIAH SLOPE RUNNER, RASHEED S 041.12 MRSA, METHICILLIN RESISTANT 08/24/2011 JOSIAH SLOPE RUNNER, RASHEED S 780.4 DIZZINESS 08/24/2011 JOSIAH SLOPE RUNNER, RASHEED S 788.33 URGE AND STRESS INCONTINENCE 08/24/2011 YUAN DO, JACK K 041.12 MRSA, METHICILLIN RESISTANT 08/24/2011 YUAN DO, JACK K 780.4 DIZZINESS 08/24/2011 YUAN DO, JACK K 788.33 URGE AND STRESS INCONTINENCE 08/24/2011 JOSIAH SLOPE RUNNER, RASHEED S 041.12 MRSA, METHICILLIN RESISTANT 08/24/2011 JOSIAH SLOPE RUNNER, RASHEED S 780.4 DIZZINESS 08/24/2011 JOSIAH SLOPE RUNNER, RASHEED S 788.33 URGE AND STRESS INCONTINENCE 08/24/2011 JOSIAH SLOPE RUNNER, RASHEED S 041.12 MRSA, METHICILLIN RESISTANT 08/24/2011 JOSIAH SLOPE RUNNER, RASHEED S 780.4 DIZZINESS 08/24/2011 JOSIAH LERNER, RASHEED S 788.33 URGE AND STRESS INCONTINENCE 08/24/2011 ARIAS GRAJEDA MD 041.12 MRSA, METHICILLIN RESISTANT 08/24/2011 NICCI ESCOTO, ARIAS 780.4 DIZZINESS 08/24/2011 ARIAS GRAJEDA MD 788.33 URGE AND STRESS INCONTINENCE 08/24/2011 JOSIAH LERNER RASHEED S 041.12 MRSA, METHICILLIN RESISTANT 08/24/2011 JOSIAH SLOPE RUNNER, RASHEED S 780.4 DIZZINESS 08/24/2011 JOSIAH SLOPE RUNNER, RASHEED S 788.33 URGE AND STRESS INCONTINENCE 08/24/2011 JOSIAH SLOPE RUNNER, RASHEED S 041.12 MRSA, METHICILLIN RESISTANT 08/24/2011 JOSIAH SLOPE RUNNER, RASHEED S 780.4 DIZZINESS 08/24/2011 JOSIAH LERNER, RASHEED S 788.33 URGE AND STRESS INCONTINENCE 08/24/2011 YUAN DO, JACK K 041.12 MRSA, METHICILLIN RESISTANT 08/24/2011 YUAN DO, JACK K 780.4 DIZZINESS 08/24/2011 YUAN DO, JACK K 788.33 URGE AND STRESS INCONTINENCE 08/24/2011 JOSIAH SLOPE RUNNER, RASHEED S 041.12 MRSA, METHICILLIN RESISTANT 08/24/2011 JOSIAH SLOPE RUNNER, RASHEED S 780.4 DIZZINESS 08/24/2011 JOSIAH SLOPE RUNNER, RASHEED S 788.33 URGE AND STRESS INCONTINENCE 08/24/2011 JOSIAH SLOPE RUNNER, RASHEED S 041.12 MRSA, METHICILLIN RESISTANT 08/24/2011 JOSIAH SLOPE RUNNER, RASHEED S 780.4 DIZZINESS 08/24/2011 JOSIAH SLOPE RUNNER, RASHEED S 788.33 URGE AND STRESS INCONTINENCE 08/24/2011 JOSIAH SLOPE RUNNER, RASHEED S 041.12 MRSA, METHICILLIN RESISTANT 08/24/2011 JOSIAH SLOPE RUNNER, RASHEED S 780.4 DIZZINESS 08/24/2011 JOSIAH SLOPE RUNNER, RASHEED S 788.33 URGE AND STRESS INCONTINENCE [...] JACK K 466.0 BRONCHITIS, ACUTE 04/02/2012 JOSIAH SLOPE RUNNER, RASHEED S 079.99 VIRAL SYNDROME 04/02/2012 JOSIAH SLOPE RUNNER, RASHEED S 466.0 BRONCHITIS, ACUTE 04/02/2012 JOSIAH SLOPE RUNNER, RASHEED S 079.99 VIRAL SYNDROME 04/02/2012 JOSIAH SLOPE RUNNER, RASHEED S 466.0 BRONCHITIS, ACUTE 04/02/2012 MADL SLOPE RUNNER, NANCY L 079.99 VIRAL SYNDROME 04/02/2012 MADL SLOPE RUNNER, NANCY L 466.0 BRONCHITIS, ACUTE 04/02/2012 JOSIAH SLOPE RUNNER, RASHEED S 079.99 VIRAL SYNDROME 04/02/2012 JOSIAH SLOPE RUNNER, RASHEED S 466.0 BRONCHITIS, ACUTE 04/02/2012 JOSIAH SLOPE RUNNER, RASHEED S 079.99 VIRAL SYNDROME 04/02/2012 JOSIAH SLOPE RUNNER, RASHEED S 466.0 BRONCHITIS, ACUTE 04/02/2012 YUAN DO, JACK K 079.99 VIRAL SYNDROME 04/02/2012 YUAN DO, JACK K 466.0 BRONCHITIS, ACUTE 04/02/2012 JOSIAH SLOPE RUNNER, RASHEED S 079.99 VIRAL SYNDROME 04/02/2012 JOSIAH SLOPE RUNNER, RASHEED S 466.0 BRONCHITIS, ACUTE 04/02/2012 JOSIAH SLOPE RUNNER, RASHEED S 079.99 VIRAL SYNDROME 04/02/2012 JOSIAH SLOPE RUNNER, RASHEED S 466.0 BRONCHITIS, ACUTE 04/02/2012 NICCI ESCOTO, ARIAS 079.99 VIRAL SYNDROME 04/02/2012 ARIAS GRAJEDA MD 466.0 BRONCHITIS, ACUTE 04/02/2012 JOSIAH SLOPE RUNNER, RASHEED S 079.99 VIRAL SYNDROME 04/02/2012 JOSIAH SLOPE RUNNER, RASHEED S 466.0 BRONCHITIS, ACUTE 04/02/2012 JOSIAH SLOPE RUNNER, RASHEED S 079.99 VIRAL SYNDROME 04/02/2012 JOSIAH SLOPE RUNNER, RASHEED S 466.0 BRONCHITIS, ACUTE 04/02/2012 YUAN DOINDERA K 079.99 VIRAL SYNDROME 04/02/2012 YUAN DOINDERA K 466.0 BRONCHITIS, ACUTE 04/02/2012 JOSIAH SLOPE RUNNER, RASHEED S 079.99 VIRAL SYNDROME 04/02/2012 JOSIAH SLOPE RUNNER, RASHEED S 466.0 BRONCHITIS, ACUTE 04/02/2012 JOSIAH SLOPE RUNNER, RASHEED S 079.99 VIRAL SYNDROME 04/02/2012 JOSIAH SLOPE RUNNER, RASHEED S 466.0 BRONCHITIS, ACUTE 04/02/2012 JOSIAH SLOPE RUNNER, RASHEED S 079.99 VIRAL SYNDROME 04/02/2012 JOSIAH SLOPE RUNNER, RASHEED S 466.0 BRONCHITIS, ACUTE 01/07/2013 V07.4 [...] V07.4 HORMONE REPLACEMENT THERAPY (POSTMENOPAUSAL) 01/07/2013 JOSIAH SLOPE RUNNER, RASHEED S V07.4 HORMONE REPLACEMENT THERAPY (POSTMENOPAUSAL) 01/07/2013 JOSIAH LERNER, RASHEED S V07.4 HORMONE REPLACEMENT THERAPY (POSTMENOPAUSAL) 01/07/2013 ARIAS GRAJEDA MD V07.4 HORMONE REPLACEMENT THERAPY (POSTMENOPAUSAL) 01/07/2013 JOSIAH SLOPE RUNNER, RASHEED S V07.4 HORMONE REPLACEMENT THERAPY (POSTMENOPAUSAL) 01/07/2013 JOSIAH LERNER, RASHEED S V07.4 HORMONE REPLACEMENT THERAPY (POSTMENOPAUSAL) 01/07/2013 JACK YUAN DO V07.4 HORMONE REPLACEMENT THERAPY (POSTMENOPAUSAL) 01/07/2013 JOSIAH SLOPE RUNNER, RASHEED S V07.4 HORMONE REPLACEMENT THERAPY (POSTMENOPAUSAL) 01/07/2013 JOSIAH LERNER, RASHEED S V07.4 HORMONE REPLACEMENT THERAPY (POSTMENOPAUSAL) 01/07/2013 JOSIAH SLOPE RUNNER, RASHEED S V07.4 HORMONE REPLACEMENT THERAPY (POSTMENOPAUSAL) 06/02/2013 JOSIAH LERNER, RASHEED S 696.1 PSORIASIS 06/02/2013 JOSIAH LERNER, RASHEED S V73.81 HPV SCREENING 06/02/2013 JOSIAH SLOPE RUNNER, RASHEED S V76.10 BREAST CANCER SCREENING 06/02/2013 JOSIAH SLOPE RUNNER, RASHEED S V76.2 CERVICAL CANCER SCREENING (PAP SMEAR) 06/02/2013 JOSIAH SLOPE RUNNER, RASHEED S 696.1 PSORIASIS 06/02/2013 JOSIAH SLOPE RUNNER, RASHEED S V73.81 HPV SCREENING 06/02/2013 JOSIAH LERNER, RASHEED S V76.10 BREAST CANCER SCREENING 06/02/2013 JOSIAH SLOPE RUNNER, RASHEED S V76.2 CERVICAL CANCER SCREENING (PAP SMEAR) 06/02/2013 JOSIAH SLOPE RUNNER, RASHEED S 696.1 PSORIASIS 06/02/2013 JOSIAH LERNER, RASHEED S V73.81 HPV SCREENING 06/02/2013 JOSIAH SLOPE RUNNER, RASHEED S V76.10 BREAST CANCER SCREENING 06/02/2013 JOSIAH LERNER, RASHEED S V76.2 CERVICAL CANCER SCREENING (PAP SMEAR) 06/02/2013 AMINA MATTHEWS MD 696.1 PSORIASIS 06/02/2013 AMINA MATTHEWS MD V73.81 HPV SCREENING 06/02/2013 AMINA MATTHEWS MD V76.10 BREAST CANCER SCREENING 06/02/2013 AMINA MATTHEWS MD V76.2 CERVICAL CANCER SCREENING (PAP SMEAR) 06/02/2013 YUAN , JCAK K 696.1 PSORIASIS 06/02/2013 YUAN , JACK K V73.81 HPV SCREENING 06/02/2013 YUAN JACK K V76.10 BREAST CANCER SCREENING 06/02/2013 YUAN DO, JACK K V76.2 CERVICAL CANCER SCREENING (PAP SMEAR) 06/02/2013 JOSIAH LERNER RASHEED S 696.1 PSORIASIS 06/02/2013 JOSIAH LERNER RASHEED S V73.81 HPV SCREENING 06/02/2013 JOSIAH LERNER RASHEED S V76.10 BREAST CANCER SCREENING 06/02/2013 JOSIAH SLOPE RUNNER, RASHEED S V76.2 CERVICAL CANCER SCREENING (PAP SMEAR) 06/02/2013 JOSIAH LERNER RASHEED S 696.1 PSORIASIS 06/02/2013 JOSIAH LERNER RASHEED S V73.81 HPV SCREENING 06/02/2013 JOSIAH LERNER RASHEED S V76.10 BREAST CANCER SCREENING 06/02/2013 JOSIAH LERNER RASHEED S V76.2 CERVICAL CANCER SCREENING (PAP SMEAR) 06/02/2013 JACLYN LERNER, NANCY L 696.1 PSORIASIS 06/02/2013 MADL SLOPE RUNNER, NANCY L V73.81 HPV SCREENING 06/02/2013 MADL SLOPE RUNNER, NANCY L V76.10 BREAST CANCER SCREENING 06/02/2013 MADL SLOPE RUNNER, NANCY L V76.2 CERVICAL CANCER SCREENING (PAP [...] S V76.10 BREAST CANCER SCREENING 06/02/2013 JOSIAH SLOPE RUNNER, RASHEED S V76.2 CERVICAL CANCER SCREENING (PAP SMEAR) 06/02/2013 YUAN DO, JACK K 696.1 PSORIASIS 06/02/2013 YUAN DO, JACK K V73.81 HPV SCREENING 06/02/2013 YUAN DO, JACK K V76.10 BREAST CANCER SCREENING 06/02/2013 YUAN DO, JACK K V76.2 CERVICAL CANCER SCREENING (PAP SMEAR) 06/02/2013 JOSIAH LERNER RASHEED S 696.1 PSORIASIS 06/02/2013 JOSIAH SLOPE RUNNER, RASHEED S V73.81 HPV SCREENING 06/02/2013 JOSIAH [...] CERVICAL CANCER SCREENING (PAP SMEAR) 06/02/2013 JOSIAH SLOPE RUNNER, RASHEED S 696.1 PSORIASIS 06/02/2013 JOSIAH LERNER, RASHEED S V73.81 HPV SCREENING 06/02/2013 JOSIAH LERNER RASHEED S V76.10 BREAST CANCER SCREENING 06/02/2013 JOSIAH SLOPE RUNNER, RASHEED S V76.2 CERVICAL CANCER SCREENING (PAP SMEAR) 06/02/2013 YUAN DO, JACK K 696.1 PSORIASIS 06/02/2013 YUAN DO, JACK K V73.81 HPV SCREENING 06/02/2013 YUAN DO, JACK K V76.10 BREAST CANCER SCREENING 06/02/2013 YUAN DO, JACK K V76.2 CERVICAL CANCER SCREENING (PAP SMEAR) 06/02/2013 JOSIAH LERNER RASHEED S 696.1 PSORIASIS 06/02/2013 JOSIAH SLOPE RUNNER, RASHEED S V73.81 HPV SCREENING 06/02/2013 JOSIAH LERNER RASHEED S V76.10 BREAST CANCER SCREENING 06/02/2013 NAKIA RAHMAN APRNNDA S V76.2 CERVICAL CANCER SCREENING (PAP SMEAR) 06/02/2013 JOSIAH LERNER RASHEED S 696.1 PSORIASIS 06/02/2013 JOSIAH LERNER, RASHEED S V73.81 HPV SCREENING 06/02/2013 JOSIAH LERNER RASHEED S V76.10 BREAST CANCER SCREENING 06/02/2013 JOSIAH SLOPE RUNNER, RASHEED S V76.2 CERVICAL CANCER SCREENING (PAP SMEAR) 06/02/2013 JOSIAH LERNER RASHEED S 696.1 PSORIASIS 06/02/2013 JOSIAH LERNER RASHEED S V73.81 HPV SCREENING 06/02/2013 JOSIAH LERNER RASHEED S V76.10 BREAST CANCER SCREENING 06/02/2013 JOSIAH SLOPE RUNNER, RASHEED S V76.2 CERVICAL CANCER SCREENING (PAP SMEAR) 07/03/2013 NAKIA RAHMAN APRNNDA S 682.6 CELLULITIS AND ABSCESS OF LEG EXCEPT FOOT 07/03/2013 BYRON ESCOTO, AMINA Marr 682.6 CELLULITIS AND ABSCESS OF LEG EXCEPT FOOT 07/03/2013 YUAN INDER HDEZA K 682.6 CELLULITIS AND ABSCESS OF LEG EXCEPT FOOT 07/03/2013 JOSIAH SLOPE RUNNER, RASHEED S 682.6 CELLULITIS AND ABSCESS OF LEG EXCEPT FOOT 07/03/2013 JOSIAH SLOPE RUNNER, RASHEED S 682.6 CELLULITIS AND ABSCESS OF LEG EXCEPT FOOT 07/03/2013 MADL SLOPE RUNNERNANCY Lockwood L 682.6 CELLULITIS AND ABSCESS OF LEG EXCEPT FOOT 07/03/2013 JOSIAH SLOPE RUNNER, RASHEED S 682.6 CELLULITIS AND ABSCESS OF LEG EXCEPT FOOT 07/03/2013 JOSIAH SLOPE RUNNER, RASHEED S 682.6 CELLULITIS AND ABSCESS OF LEG EXCEPT FOOT 07/03/2013 JACK YUAN DO K 682.6 CELLULITIS AND ABSCESS OF LEG EXCEPT FOOT 07/03/2013 JOSIAH SLOPE RUNNER, RASHEED S 682.6 CELLULITIS AND ABSCESS OF LEG EXCEPT FOOT 07/03/2013 JOSIAH SLOPE RUNNER, RASHEED S 682.6 CELLULITIS AND ABSCESS OF LEG EXCEPT FOOT 07/03/2013 NICCI ESCOTO, ARIAS 682.6 CELLULITIS AND ABSCESS OF LEG EXCEPT FOOT 07/03/2013 JOSIAH SLOPE RUNNER, RASHEED S 682.6 CELLULITIS AND ABSCESS OF LEG EXCEPT FOOT 07/03/2013 JOSIAH SLOPE RUNNER, RASHEED S 682.6 CELLULITIS AND ABSCESS OF LEG EXCEPT FOOT 07/03/2013 JACK YUAN DO K 682.6 CELLULITIS AND ABSCESS OF LEG EXCEPT FOOT 07/03/2013 JOSIAH SLOPE RUNNER, RASHEED S 682.6 CELLULITIS AND ABSCESS OF LEG EXCEPT FOOT 07/03/2013 JOSIAH SLOPE RUNNER, RASHEED S 682.6 CELLULITIS AND ABSCESS OF LEG EXCEPT FOOT 07/03/2013 JOSIAH SLOPE RUNNER, RASHEED S 682.6 CELLULITIS AND ABSCESS OF LEG EXCEPT FOOT 08/15/2013 BYRON ESCOTO, AMINA Marr 461.9 SINUSITIS ACUTE 08/15/2013 JACK YUAN DO K 461.9 SINUSITIS ACUTE 08/15/2013 JOSIAH SLOPE RUNNER, RASHEED S 461.9 SINUSITIS ACUTE 08/15/2013 JOSIAH SLOPE RUNNER, RASHEED S 461.9 SINUSITIS ACUTE 08/15/2013 JACLYN SLOPE RUNNERNANCY Lockwood L 461.9 SINUSITIS ACUTE 08/15/2013 JOSIAH SLOPE RUNNER, RASHEED S 461.9 SINUSITIS ACUTE 08/15/2013 JOSIAH SLOPE RUNNER, RASHEED S 461.9 SINUSITIS ACUTE 08/15/2013 INDER YUAN DOA K 461.9 SINUSITIS ACUTE 08/15/2013 JOSIAH SLOPE RUNNER, RASHEED S 461.9 SINUSITIS ACUTE 08/15/2013 JOSIAH SLOPE RUNNER, RASHEED S 461.9 SINUSITIS ACUTE 08/15/2013 ARIAS GRAJEDA MD 461.9 SINUSITIS ACUTE 08/15/2013 JOSIAH SLOPE RUNNER, RASHEED S 461.9 SINUSITIS ACUTE 08/15/2013 JOSIAH SLOPE RUNNER, RASHEED S 461.9 SINUSITIS ACUTE 08/15/2013 JACK YUAN DO K 461.9 SINUSITIS ACUTE 08/15/2013 JOSIAH SLOPE RUNNER, RASHEED S 461.9 SINUSITIS ACUTE 08/15/2013 JOSIAH SLOPE RUNNER, RASHEED S 461.9 SINUSITIS ACUTE 08/15/2013 JOSIAH SLOPE RUNNER, RASHEED S 461.9 SINUSITIS ACUTE 09/04/2013 INDER YUAN DOA K 733.92 CHONDROMALACIA 09/04/2013 JOSIAH SLOPE RUNNER, RASHEED S 733.92 CHONDROMALACIA 09/04/2013 JOSIAH SLOPE RUNNER, RASHEED S 733.92 CHONDROMALACIA 09/04/2013 JACLYN LERNER, NANCY L 733.92 CHONDROMALACIA 09/04/2013 JOSIAH SLOPE RUNNER, RASHEED S 733.92 CHONDROMALACIA 09/04/2013 JOSIAH SLOPE RUNNER, RASHEED S 733.92 CHONDROMALACIA 09/04/2013 KWABENA HDEZ JACK K 733.92 CHONDROMALACIA 09/04/2013 JOSIAH SLOPE RUNNER, RASHEED S 733.92 CHONDROMALACIA 09/04/2013 JOSIAH SLOPE RUNNER, RASHEED S 733.92 CHONDROMALACIA 09/04/2013 ARIAS GRAJEDA MD 733.92 CHONDROMALACIA 09/04/2013 JOSIAH SLOPE RUNNER, RASHEED S 733.92 CHONDROMALACIA 09/04/2013 JOSIAH SLOPE RUNNER, RASHEED S 733.92 CHONDROMALACIA 09/04/2013 YUAN DO, JACK K 733.92 CHONDROMALACIA 09/04/2013 JOSIAH SLOPE RUNNER, RASHEED S 733.92 CHONDROMALACIA 09/04/2013 JOSIAH SLOPE RUNNER, RASHEED S 733.92 CHONDROMALACIA 09/04/2013 JOSIAH SLOPE RUNNER, RASHEED S 733.92 CHONDROMALACIA 09/11/2013 JOSIAH SLOPE RUNNER, RASHEED S 477.0 ALLERGIC RHINITIS DUE TO POLLEN 09/11/2013 JOSIAH SLOPE RUNNER, RASHEED S 477.0 ALLERGIC RHINITIS DUE TO POLLEN 09/11/2013 MADL SLOPE RUNNERKARINA LockwoodNYA L 477.0 ALLERGIC RHINITIS DUE TO POLLEN 09/11/2013 JOSIAH SLOPE RUNNER, RASHEED S 477.0 ALLERGIC RHINITIS DUE TO POLLEN 09/11/2013 JOSIAH SLOPE RUNNER, RASHEED S 477.0 ALLERGIC RHINITIS DUE TO POLLEN 09/11/2013 YUAN DO, JACK K 477.0 ALLERGIC RHINITIS DUE TO POLLEN 09/11/2013 JOSIAH SLOPE RUNNER, RASHEED S 477.0 ALLERGIC RHINITIS DUE TO POLLEN 09/11/2013 JOSIAH SLOPE RUNNER, RASHEED S 477.0 ALLERGIC RHINITIS DUE TO POLLEN 09/11/2013 ARIAS GRAJEDA MD 477.0 ALLERGIC RHINITIS DUE TO POLLEN 09/11/2013 JOSIAH SLOPE RUNNER, RASHEED S 477.0 ALLERGIC RHINITIS DUE TO POLLEN 09/11/2013 JOSIAH SLOPE RUNNER, RASHEED S 477.0 ALLERGIC RHINITIS DUE TO POLLEN 09/11/2013 YUAN DO, JACK K 477.0 ALLERGIC RHINITIS DUE TO POLLEN 09/11/2013 JOSIAH SLOPE RUNNER, RASHEED S 477.0 ALLERGIC RHINITIS DUE TO POLLEN 09/11/2013 JOSIAH SLOPE RUNNER, RASHEED S 477.0 ALLERGIC RHINITIS DUE TO POLLEN 09/11/2013 JOSIAH SLOPE RUNNER, RASHEED S 477.0 ALLERGIC RHINITIS DUE TO POLLEN 10/31/2013 [facility] Ot 715.36 LOC OSTEOARTH NOS-L/LEG 10/31/2013 [facility] Ot 729.89 MUSCSKEL SYMPT LIMB NEC 10/31/2013 [facility] Ot 733.92 CHONDROMALACIA 10/31/2013 [facility] Ot V43.65 KNEE JOINT REPLACEMENT STATUS 10/31/2013 [facility] Ot V54.81 AFTERCARE FOLLOWING JOINT REPLACEMENT 10/31/2013 [facility] Ot V57.1 PHYSICAL THERAPY NEC 11/17/2013 MADL SLOPE RUNNER, NANCY L 578.1 BLOOD IN STOOL 11/17/2013 MADL SLOPE RUNNER, NANCY L 789.06 ABDOMINAL PAIN EPIGASTRIC 11/17/2013 JOSIAH SLOPE RUNNER, RASHEED S 578.1 BLOOD IN STOOL 11/17/2013 JOSIAH SLOPE RUNNER, RASHEED S 789.06 ABDOMINAL PAIN EPIGASTRIC 11/17/2013 JOSIAH SLOPE RUNNER, RASHEED S 578.1 BLOOD IN STOOL 11/17/2013 JOSIAH SLOPE RUNNER, RASHEED S 789.06 ABDOMINAL PAIN EPIGASTRIC 11/17/2013 YUAN DO, JACK K 578.1 BLOOD IN STOOL 11/17/2013 YUAN DO, JACK K 789.06 ABDOMINAL PAIN EPIGASTRIC 11/17/2013 JOSIAH SLOPE RUNNER, RASHEED S 578.1 BLOOD IN STOOL 11/17/2013 JOSIAH SLOPE RUNNER, RASHEED S 789.06 ABDOMINAL PAIN EPIGASTRIC 11/17/2013 JOSIAH SLOPE RUNNER, RASHEED S 578.1 BLOOD IN STOOL 11/17/2013 JOSIAH SLOPE RUNNER, RASHEED S 789.06 ABDOMINAL PAIN EPIGASTRIC 11/17/2013 ARIAS GRAJEDA MD 578.1 BLOOD IN STOOL 11/17/2013 ARIAS GRAJEDA MD 789.06 ABDOMINAL PAIN EPIGASTRIC 11/17/2013 JOSIAH SLOPE RUNNER, RASHEED S 578.1 BLOOD IN STOOL 11/17/2013 JOSIAH SLOPE RUNNER, RASHEED S 789.06 ABDOMINAL PAIN EPIGASTRIC 11/17/2013 JOSIAH SLOPE RUNNER, RASHEED S 578.1 BLOOD IN STOOL 11/17/2013 JOSIAH SLOPE RUNNER, RASHEED S 789.06 ABDOMINAL PAIN EPIGASTRIC 11/17/2013 YUAN DO, JACK K 578.1 BLOOD IN STOOL 11/17/2013 YUAN DO, JACK K 789.06 ABDOMINAL PAIN EPIGASTRIC 11/17/2013 JOSIAH SLOPE RUNNER, RASHEED S 578.1 BLOOD IN STOOL 11/17/2013 JOSIAH SLOPE RUNNER, RASHEED S 789.06 ABDOMINAL PAIN EPIGASTRIC 11/17/2013 JOSIAH SLOPE RUNNER, RASHEED S 578.1 BLOOD IN STOOL 11/17/2013 JOSIAH SLOPE RUNNER, RASHEED S 789.06 ABDOMINAL PAIN EPIGASTRIC 11/17/2013 JOSIAH SLOPE RUNNER, RASHEED S 578.1 BLOOD IN STOOL 11/17/2013 JOSIAH SLOPE RUNNER, RASHEED S 789.06 ABDOMINAL PAIN EPIGASTRIC 12/17/2013 JACK YUAN DO K 354.0 CARPAL TUNNEL SYNDROME 12/17/2013 JOSIAH SLOPE RUNNER, RASEHED S 354.0 CARPAL TUNNEL SYNDROME 12/17/2013 JOSIAH SLOPE RUNNER, RASHEED S 354.0 CARPAL TUNNEL SYNDROME 12/17/2013 ARIAS GRAJEDA MD 354.0 CARPAL TUNNEL SYNDROME 12/17/2013 JOSIAH SLOPE RUNNER, RASHEED S 354.0 CARPAL TUNNEL SYNDROME 12/17/2013 JOSIAH SLOPE RUNNER, RASHEED S 354.0 CARPAL TUNNEL SYNDROME 12/17/2013 INDER YUAN DOA K 354.0 CARPAL TUNNEL SYNDROME 12/17/2013 JOSIAH SLOPE RUNNER, RASHEED S 354.0 CARPAL TUNNEL SYNDROME 12/17/2013 JOSIAH SLOPE RUNNER, RASHEED S 354.0 CARPAL TUNNEL SYNDROME 12/17/2013 JOSIAH SLOPE RUNNER, RASHEED S 354.0 CARPAL TUNNEL SYNDROME 12/18/2013 INDER YUAN DOA K V76.10 BREAST CANCER SCREENING 12/18/2013 JOSIAH COVARRUBIASN, RASHEED S V76.10 BREAST CANCER SCREENING 12/18/2013 JOSIAH SLOPE RUNNER, RASHEED S V76.10 BREAST CANCER SCREENING 12/18/2013 ARIAS GRAJEDA MD V76.10 BREAST CANCER SCREENING 12/18/2013 JOSIAH SLOPE RUNNER, RASHEED S V76.10 BREAST CANCER SCREENING 12/18/2013 JOSIAH SLOPE RUNNER, RASHEED S V76.10 BREAST CANCER SCREENING 12/18/2013 KWABENA HDEZ JACK K V76.10 BREAST CANCER SCREENING 12/18/2013 JOSIAH SLOPE RUNNER, RASHEED S V76.10 BREAST CANCER SCREENING 12/18/2013 JOSIAH SLOPE RUNNER, RASHEED S V76.10 BREAST CANCER SCREENING 12/18/2013 JOSIAH SLOPE RUNNER, RASHEED S V76.10 BREAST CANCER SCREENING 01/05/2014 JOSIAH SLOPE RUNNER, RASHEED S 356.9 NEUROPATHY 01/05/2014 JOSIAH SLOPE RUNNER, RASHEED S 599.0 URINARY TRACT INFECTION 01/05/2014 JOSIAH SLOPE RUNNER, RASHEED S 719.47 PAIN- FOOT 01/05/2014 JOSIAH SLOPE RUNNER, RASHEED S 356.9 NEUROPATHY 01/05/2014 JOSIAH SLOPE RUNNER, RASHEED S 599.0 URINARY TRACT INFECTION 01/05/2014 JOSIAH SLOPE RUNNER, RASHEED S 719.47 PAIN- FOOT 01/05/2014 ARIAS GRAJEDA MD 356.9 NEUROPATHY 01/05/2014 ARIAS GRAJEDA MD 599.0 URINARY TRACT INFECTION 01/05/2014 ARIAS GRAJEDA MD 719.47 PAIN- FOOT 01/05/2014 JOSIAH SLOPE RUNNER, RASHEED S 356.9 NEUROPATHY 01/05/2014 JOSIAH SLOPE RUNNER, RASHEED S 599.0 URINARY TRACT INFECTION 01/05/2014 JOSIAH SLOPE RUNNER, RASHEED S 719.47 PAIN- FOOT 01/05/2014 JOSIAH SLOPE RUNNER, RASHEED S 356.9 NEUROPATHY 01/05/2014 JOSIAH SLOPE RUNNER, RASHEED S 599.0 URINARY TRACT INFECTION 01/05/2014 JOSIAH SLOPE RUNNER, RASHEED S 719.47 PAIN- FOOT 01/05/2014 YUAN DO, JACK K 356.9 NEUROPATHY 01/05/2014 YUAN DO, JACK K 599.0 URINARY TRACT INFECTION 01/05/2014 YUAN DO, JACK K 719.47 PAIN- FOOT 01/05/2014 JOSIAH SLOPE RUNNER, RASHEED S 356.9 NEUROPATHY 01/05/2014 JOSIAH SLOPE RUNNER, RASHEED S 599.0 URINARY TRACT INFECTION 01/05/2014 JOSIAH SLOPE RUNNER, RASHEED S 719.47 PAIN- FOOT 01/05/2014 JOSIAH SLOPE RUNNER, RASHEED S 356.9 NEUROPATHY 01/05/2014 JOSIAH SLOPE RUNNER, RASHEED S 599.0 URINARY TRACT INFECTION 01/05/2014 JOSIAH SLOPE RUNNER, RASHEED S 719.47 PAIN- FOOT 01/05/2014 JOSIAH SLOPE RUNNER, RASHEED S 356.9 NEUROPATHY 01/05/2014 JOSIAH SLOPE RUNNER, RASHEED S 599.0 URINARY TRACT INFECTION 01/05/2014 JOSIAH SLOPE RUNNER, RASHEED S 719.47 PAIN- FOOT 01/30/2014 JAMIE [...] GRAJEDA MD 455.6 HEMORRHOIDS NOS 02/02/2014 JOSIAH SLOPE RUNNER, RASHEED S 211.9 POLYP- GI 02/02/2014 JOSIAH SLOPE RUNNER, RASHEED S 455.6 HEMORRHOIDS NOS 02/02/2014 JOSIAH SLOPE RUNNER, RASHEED S 211.9 POLYP- GI 02/02/2014 JOSIAH SLOPE RUNNER, RASHEED S 455.6 HEMORRHOIDS NOS 02/02/2014 YUAN DO, JACK K 211.9 POLYP- GI 02/02/2014 YUAN DO, JACK K 455.6 HEMORRHOIDS NOS 02/02/2014 JOSIAH SLOPE RUNNER, RASHEED S 211.9 POLYP- GI 02/02/2014 JOSIAH SLOPE RUNNER, RASHEED S 455.6 HEMORRHOIDS NOS 02/02/2014 JOSIAH SLOPE RUNNER, RASHEED S 211.9 POLYP- GI 02/02/2014 JOSIAH SLOPE RUNNER, RASHEED S 455.6 HEMORRHOIDS NOS 02/02/2014 JOSIAH SLOPE RUNNER, RASHEED S 211.9 POLYP- GI 02/02/2014 JOSIAH SLOPE RUNNER, RASHEED S 455.6 HEMORRHOIDS NOS 02/10/2014 JOSEE ESCOTO [facility], ALI FACP CCDS Ot 272.4 HYPERLIPIDEMIA NEC/NOS 02/10/2014 JOSEE ESCOTO [facility], ALI FACP CCDS Ot 278.00 OBESITY, NOS 02/10/2014 JOSEE ESCOTO [facility], ALI FACP CCDS Ot 305.1 TOBACCO USE DISORDER 02/10/2014 JOSEE ESCOTO FAC, ALI FACP CCDS Ot 401.9 HYPERTENSION NOS 02/10/2014 JOSEE ESCOTO [facility], ALI FACP CCDS Ot 530.81 ESOPHAGEAL REFLUX 02/10/2014 JOSEE ESCOTO [facility], ALI FACP CCDS Ot 786.50 CHEST PAIN NOS 02/10/2014 JOSEE ESCOTO [facility], ALI FACP CCDS Ot V17.3 FAM HX-ISCHEM HEART DIS 02/10/2014 JOSEE ESCOTO [facility], ALI FACP CCDS Ot V58.69 OTH MED,LT,CURRENT USE 02/10/2014 JOSEE ESCOTO [facility], ALI FACP CCDS Ot V85.37 BODY MASS INDEX 37.0-37.9, ADULT 03/04/2014 SOSA ARZOLA MD Ot 496 CHR AIRWAY OBSTRUCT NEC 03/04/2014 SOSA ARZOLA MD Ot 717.40 DERANG LAT MENISCUS NOS 03/04/2014 SOSA ARZOLA MD Ot V57.1 PHYSICAL THERAPY NEC 03/04/2014 [...] APRNA S V15.82 NICOTINE ABUSE 03/19/2014 JOSIAH SLOPE RUNNER, RASHEED S 729.82 CRAMP OF LIMB 03/19/2014 [...] APRNA S 788.1 DYSURIA 04/07/2014 [facility] Ot 719.46 JOINT PAIN-L/LEG 04/07/2014 RASHEED RAHMANP Ot V57.1 PHYSICAL THERAPY NEC 04/10/2014 LIBERTY SANDOVAL SLOPE RUNNER Ot 491.21 OBSTR CHRONIC BRONCHITIS, W (ACUTE) EXAC 04/10/2014 LIBERTY SANDOVAL SLOPE RUNNER Ot 786.05 SHORTNESS OF BREATH 04/10/2014 LIBERTY SANDOVAL SLOPE RUNNER Ot 787.02 NAUSEA ALONE 04/10/2014 LIBERTY SANDOVAL SLOPE RUNNER Ot 787.91 DIARRHEA 04/17/2014 YUAN DO, JACK K 110.1 ONYCHOMYCOSIS 04/17/2014 YUAN DO, JACK K 706.8 XEROSIS 04/17/2014 NAKIA RAHMAN APRNNDA S 110.1 ONYCHOMYCOSIS 04/17/2014 NAKIA RAHMAN APRNNDA S 706.8 XEROSIS 04/17/2014 JOSIAH LERNER RASHEED S 110.1 ONYCHOMYCOSIS 04/17/2014 NAKIA RAHMAN APRNNDA S 706.8 XEROSIS 04/17/2014 NAKIA RAHMAN APRNNDA S 110.1 ONYCHOMYCOSIS 04/17/2014 JOSIAH LERNER RASHEED S 706.8 XEROSIS 06/03/2014 JOSIAH SLOPE RUNNER, RASHEED S 466.0 BRONCHITIS, ACUTE 06/03/2014 JOSIAH SLOPE RUNNER, RASHEED S 466.0 BRONCHITIS, ACUTE 06/03/2014 JOSIAH SLOPE RUNNER, RASHEED S 466.0 BRONCHITIS, ACUTE 07/06/2014 JOSIAH SLOPE RUNNER, RASHEED S 719.41 PAIN- SHOULDER 07/27/2014 Ot [...] Ot 272.4 HYPERLIPIDEMIA NEC/NOS 09/23/2014 KAREN ESCOTO, YRAN Moeller Ot 401.9 HYPERTENSION NOS 09/23/2014 KAREN [...] RASHEED RAHMANP Ot V76.12 10/12/2014 [facility] Ot V76.12 10/12/2014 SAMEERA ESCOTO, JAMIE Ot [...] V72.63 10/29/2014 Ot V74.8 10/29/2014 [facility] Ot V76.12 10/29/2014 [facility] Ot V76.12 10/29/2014 SAMEERA ESCOTO, JAMIE Ot [...] KAREN ESCOTO, RYAN A Ot V74.8 10/29/2014 MORAIMA NOEL DO Ot 719.46 10/29/2014 MORAIMA NOEL DO Ot 724.2 10/29/2014 MORAIMA NOEL DO Ot 959.7 10/29/2014 GELLENDER DO, MORAIMA Moeller Ot E000.8 10/29/2014 GELLENDER DO, MORAIMA Moeller Ot E849.0 10/29/2014 GELLENDER DO, MORAIMA Moeller Ot E888.9 10/29/2014 GELLENDER DO, MORAIMA Moeller Ot 789.01 11/09/2014 GELLENDER DO, MORAIMA Moeller Ot 719.46 11/09/2014 GELLENDER DO, MORAIMA Moeller Ot 724.2 11/09/2014 GELLENDER DO, MOARIMA oMeller Ot 959.7 11/09/2014 GELLENDER DO, MORAIMA Moeller [...] NARAYAN Marr Ot V72.63 12/05/2014 RUFINA ESCOTO, NAARYAN Marr Ot V72.81 12/05/2014 RUFINA ESCOTO, NARAYAN [...] E78.5 HYPERLIPIDEMIA, UNSPECIFIED 03/24/2015 NESS ESCOTO, SOSA P Ot G56.02 CARPAL TUNNEL SYNDROME, LEFT UPPER LIMB 03/24/2015 NESS ESCOTO, SOSA P Ot I10 ESSENTIAL (PRIMARY) HYPERTENSION 03/24/2015 NESS ESCOTO, SOSA P Ot J44.9 CHRONIC OBSTRUCTIVE PULMONARY DISEASE, U 04/08/2015 [facility] Ot Z12.31 04/13/2015 [facility] Ot Z12.31 04/21/2015 SOSA ARZOLA MD Ot E78.5 HYPERLIPIDEMIA, UNSPECIFIED 04/21/2015 SOSA ARZOLA MD Ot G56.01 CARPAL TUNNEL SYNDROME, RIGHT UPPER LIMB 04/21/2015 SOSA ARZOLA MD Ot I10 ESSENTIAL (PRIMARY) HYPERTENSION 04/21/2015 [...] I10 ESSENTIAL (PRIMARY) HYPERTENSION 12/10/2015 SOSA ARZOLA MD Ot J44.9 CHRONIC OBSTRUCTIVE PULMONARY DISEASE, U 12/10/2015 SOSA ARZOLA MD Ot M19.012 PRIMARY OSTEOARTHRITIS, [...] MAMMO-MALIGN NEOPLASM OF SAMANTHA 01/04/2016 JOSIAH [facility] Ot V76.12 OTH SCREEN MAMMO-MALIGN NEOPLASM OF [...] 01/04/2016 RUFINA ESCOTO, NARAYAN Marr Ot V72.81 [id number] CARDIOVASCULAR 01/04/2016 RUFINA ESCOTO, NARAYAN Marr Ot [...] FOR SCREENING FOR OTHER BACTER 01/04/2016 [facility] RHAMAN Ot Z12.31 ENCNTR SCREEN MAMMOGRAM FOR MALIGNANT [...] UNSPECIFIED, INITIAL ENCOUNTER 01/13/2016 TILLMAN, DINO D [facility] SECRETARY Ot R22.31 LOCALIZED SWELLING, MASS AND LUMP, RIGHT 02/04/2016 NESS ESCOTO, SOSA Shelby Ot S43.431D SUPERIOR GLENOID LABRUM LESION OF RIGHT 02/04/2016 NESS ESCOTO, SOSA Shelby Ot S43.431D SUPERIOR GLENOID LABRUM LESION OF RIGHT 02/04/2016 [facility] SECRETARY Ot R22.31 LOCALIZED SWELLING, MASS AND LUMP, [...] 04/03/2016 RUFINA ESCOTO, NARAYAN Marr Ot V72.81 XUPF-TTY-HHOCXUONQ CARDIOVASCULAR 04/03/2016 RUFINA ESCOTO, NARAYAN Marr Ot V74.8 SCREEN-BACTERIAL DIS NEC 04/03/2016 NESS ESCOTO, SOSA Shelby Ot 715.31 LOC OSTEOARTH NOS-SHLDER 04/03/2016 SOSA ARZOLA MD Ot 727.61 ROTATOR [...] INFECTION, SITE NOT SPECIF 04/03/2016 [facility] SE[facility]ETARY Ot R22.31 LOCALIZED SWELLING, MASS AND LUMP, [...] 04/12/2016 RUFINA ESCOTO, NARAYAN Marr Ot V72.81 TSRG-JYG-LCVILXEPJ CARDIOVASCULAR 04/12/2016 RUFINA ESCOTO, NARAYAN Marr Ot [...] FOR SCREENING FOR OTHER DISORD 04/12/2016 SOSA ARZOLA MD Ot G56.01 CARPAL TUNNEL SYNDROME, RIGHT UPPER LIMB 04/12/2016 SOSA ARZOLA MD Ot Z01.818 ENCOUNTER FOR [...] MD Ot E78.00 PURE HYPERCHOLESTEROLEMIA, UNSPECIFIED 04/13/2016 ALURA ORBLERO MD Ot E86.0 DEHYDRATION 04/13/2016 LAURA ROBLERO [...] Ot F17.210 NICOTINE DEPENDENCE, CIGARETTES, UNCOMPL 07/13/2016 AYMILET SEGAL MD Ot F41.9 ANXIETY DISORDER, UNSPECIFIED [...] YAMILET SEGAL MD Ot M54.2 CERVICALGIA 07/13/2016 YAMILTE SEGAL MD, Ot M54.9 DORSALGIA, UNSPECIFIED 07/13/2016 [...] Shelby Ot 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 PATELLAE 07/29/2016 SOSA ARZOLA [...] 07/29/2016 RUFINA ESCOTO, NARAYAN Marr Ot V72.81 GBMR-JNZ-GWFGVQROF CARDIOVASCULAR 07/29/2016 RUFINA ESCOTO, NARAYAN Marr Ot [...] Shelby Ot 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 PATELLAE 10/25/2016 SOSA ARZOLA MD Ot V72.84 EXAM PRE-OPERATIVE NOS 10/25/2016 [...] 10/25/2016 RUFINA ESCOTO, NARAYAN Marr Ot V72.81 XNQR-PFI-VDMQROOAP CARDIOVASCULAR 10/25/2016 NARAYAN ALMARAZ MD Ot V74.8 SCREEN-BACTERIAL DIS NEC 10/25/2016 SOSA ARZOLA MD Ot 715.31 LOC OSTEOARTH NOS-SHLDER 10/25/2016 SOSA ARZOLA MD Ot 727.61 ROTATOR CUFF RUPTURE 10/25/2016 [...] 10/31/2016 MEDARDO DUFFY MD Ot Z79.899 OTHER RESIDENTIAL (CURRENT) DRUG THERAPY 11/17/2016 MEDARDO DUFFY MD Ot Z51.81 ENCOUNTER FOR THERAPEUTIC DRUG LEVEL MON 11/17/2016 MEDARDO DUFFY MD Ot Z79.899 OTHER RESIDENTIAL (CURRENT) DRUG THERAPY 11/21/2016 CLIVE ESCOTO, MEDARDO Chowdhury Ot Z51.81 ENCOUNTER FOR THERAPEUTIC DRUG LEVEL MON 11/21/2016 CLIVE ESCOTO, MEDARDO Chowdhury Ot Z79.899 OTHER RESIDENTIAL (CURRENT) DRUG THERAPY 05/01/2017 RASHEED RAHMAN Ot V76.12 OTH SCREEN MAMMO-MALIGN NEOPLASM OF SAMANTHA 05/01/2017 RASHEED RAHMAN Ot V76.12 OTH SCREEN MAMMO-MALIGN NEOPLASM OF SAMANTHA 05/01/2017 SAMEERA ESCOTO, JAMIE Ot V72.84 EXAM PRE-OPERATIVE NOS 05/01/2017 NESS ESCOTO, SOSA Shelby Ot 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 PATELLAE 05/01/2017 SOSA ARZOLA MD Ot V72.84 EXAM PRE-OPERATIVE NOS 05/01/2017 SOSA ARZOLA MD Ot V74.8 SCREEN-BACTERIAL DIS NEC 05/01/2017 SOSA ARZOLA MD Ot 727.61 ROTATOR [...] NOEL DO Ot E888.9 FALL NOS 05/01/2017 MORAIMA NOEL DO Ot 789.01 ABDOMINAL PAIN, RIGHT UPPER QUADRANT 05/01/2017 MORAIMA NOEL DO Ot 575.8 DIS OF GALLBLADDER NEC 05/01/2017 RUFINA ESCOTO, NARAYAN Marr Ot 575.8 DIS OF GALLBLADDER NEC 05/01/2017 RUFINA ESCOTO, NARAYAN Marr Ot V72.63 PRE-PROCEDURAL LABORATORY EXAMINATION 05/01/2017 RUFINA ESCOTO, NARAYAN Marr Ot V72.81 LQIY-GJM-XKZCRMWNH CARDIOVASCULAR 05/01/2017 RUFINA ESCOTO, NARAYAN Marr Ot V74.8 SCREEN-BACTERIAL DIS NEC 05/01/2017 NESS [...] CLIVE ESCOTO, MEDARDO Chowdhury Ot Z79.899 OTHER RESIDENTIAL (CURRENT) DRUG THERAPY 05/01/2017 MEDARDO DUFFY MD [...] MAMMO-MALIGN NEOPLASM OF SAMANTHA 05/21/2017 [facility] SE[facility]ETARY Ot V76.12 OTH SCREEN MAMMO-MALIGN NEOPLASM OF [...] 05/21/2017 RUFINA ESCOTO, NARAYAN Marr Ot V72.81 QKOG-DDY-JHJCJITDS CARDIOVASCULAR 05/21/2017 RUFINA ESCOTO, NARAYAN Marr Ot [...] TUNNEL SYNDROME, RIGHT UPPER LIMB 05/21/2017 SOSA ARZOLA MD Ot Z01.818 ENCOUNTER FOR [...] 05/21/2017 MEDARDO DUFFY MD Ot Z79.899 OTHER ANESTHESIOLOGY PHYSICIAN (CURRENT) DRUG THERAPY 05/21/2017 MEDARDO DUFFY MD, Ot Z12.31 ENCNTR SCREEN MAMMOGRAM FOR MALIGNANT NE 05/21/2017 JEN SANTIAGO MD Ot M25.811 OTHER SPECIFIED JOINT DISORDERS, RIGHT S 05/21/2017 JOSEE ESOCTO FACC, ROGER KIMP CCDS Ot E78.4 OTHER [...] M25.512 PAIN IN LEFT SHOULDER 06/05/2017 JEN SNATIAGO MD Ot Z47.89 ENCOUNTER FOR OTHER ORTHOPEDIC AFTERCARE 06/08/2017 JOSEE ESCOTO FACC, ALI FACP CCDS Ot E78.4 OTHER HYPERLIPIDEMIA 06/08/2017 JOSEE ESCOTO FACC, ALI FACP CCDS Ot I10 ESSENTIAL (PRIMARY) HYPERTENSION 06/08/2017 JOSEE ESCOTO FACC, ALI FACP CCDS Ot J43.8 OTHER EMPHYSEMA 06/08/2017 JOSEE ESCOTO FACC, ALI FACP CCDS Ot R06.02 SHORTNESS OF BREATH 06/08/2017 [facility], ALI FACP CCDS Ot Z72.0 TOBACCO [...] ALLERGY STATUS TO OTH DRUG/MEDS/BIOL SUB 07/19/2017 GEMRAN HENDERSON MD, Ot Z90.710 ACQUIRED ABSENCE OF [...] ENCOUNTER FOR OTHER ORTHOPEDIC AFTERCARE 02/26/2018 RASHEED RAHMAN Ot V76.12 OTH SCREEN MAMMO-MALIGN NEOPLASM OF SAMANTHA 02/26/2018 [facility] RAHMAN Ot V76.12 OTH SCREEN MAMMO-MALIGN NEOPLASM OF SAMANTHA 02/26/2018 SAMEERA ESCOTO, JAMIE Ot V72.84 EXAM PRE-OPERATIVE NOS 02/26/2018 SOSA ARZOLA MD Ot 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 PATELLAE 02/26/2018 SOSA ARZOLA MD Ot V72.84 EXAM PRE-OPERATIVE NOS 02/26/2018 SOSA ARZOLA MD Ot V74.8 SCREEN-BACTERIAL DIS NEC 02/26/2018 [...] E000.8 OTHER EXTERNAL CAUSE STATUS 02/26/2018 MORAIMA NOEL DO Ot E849.0 ACCIDENT IN HOME 02/26/2018 [...] 02/26/2018 RUFINA ESCOTO, NARAYAN Marr Ot V72.81 OVPO-BIP-KZPRXQETT CARDIOVASCULAR 02/26/2018 RUFINA ESCOTO, NARAYAN Marr Ot V74.8 SCREEN-BACTERIAL DIS NEC 02/26/2018 NESS ESCOTO, SOSA Shelby Ot 715.31 LOC OSTEOARTH NOS-SHLDER 02/26/2018 NESS ESCOTO, SOSA Shelby Ot 727.61 ROTATOR CUFF RUPTURE 02/26/2018 NESS ESCOTO, SOSA Shelby Ot 840.7 (SLAP) SUPERIOR GLENOID LABRUM LESIONS 02/26/2018 SOSA ARZOLA MD Ot V72.83 EXAM PRE-OPERATIVE NEC 02/26/2018 Ot G56.02 CARPAL TUNNEL SYNDROME, LEFT UPPER LIMB 02/26/2018 Ot Z01.818 ENCOUNTER FOR OTHER PREPROCEDURAL EXAMIN 02/26/2018 Ot Z11.2 ENCOUNTER FOR SCREENING FOR OTHER BACTER 02/26/2018 RASHEED RAHMAN Ot Z12.31 ENCNTR SCREEN MAMMOGRAM FOR MALIGNANT NE 02/26/2018 MORAIMA NOEL DO Ot Z13.89 ENCOUNTER FOR SCREENING FOR OTHER DISORD 02/26/2018 SOSA ARZOLA MD Ot G56.01 CARPAL TUNNEL SYNDROME, RIGHT UPPER LIMB 02/26/2018 SOSA ARZOLA MD Ot Z01.818 ENCOUNTER FOR [...] SCREEN MAMMOGRAM FOR MALIGNANT NE 02/26/2018 SOSA ARZOLA MD Ot M75.121 COMPLETE ROTATR-CUFF TEAR/RUPTR OF R JOSSY 02/26/2018 CLIVE ESCOTO, MEDARDO Chowdhury Ot Z51.81 ENCOUNTER FOR THERAPEUTIC DRUG LEVEL MON 02/26/2018 MEDARDO DUFFY MD Ot Z79.899 OTHER ANESTHESIOLOGY PHYSICIAN (CURRENT) DRUG THERAPY 02/26/2018 MEDARDO DUFFY MD [...] TOBACCO CIGARETTES, SELF 02/26/2018 BAIMA, COURTNEY L [facility] SECRETARY Ot I70.213 ATHSCL OSAGE ARTERIES OF EXTRM W INTRMT 02/26/2018 BAIMA, COURTNEY L [facility]OSP[facility] SECRETARY Ot I70.213 ATHSCL OSAGE ARTERIES OF EXTRM W INTRMT 02/26/2018 BAIMA, COURTNEY L HOSPITAL SECRETARY Ot I70.213 ATHSCL OSAGE ARTERIES OF EXTRM W INTRMT 02/26/2018 RASHEED RAHMAN HOSPITAL SECRETARY Ot V76.12 OTH SCREEN MAMMO-MALIGN NEOPLASM OF SAMANTHA 02/26/2018 RASHEED RAHMAN Ot V76.12 OTH SCREEN MAMMO-MALIGN NEOPLASM OF SAMANTHA 02/26/2018 SAMEERA ESCOTO, JAMIE Ot V72.84 EXAM PRE-OPERATIVE NOS 02/26/2018 SOSA ARZOLA MD Ot 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 PATELLAE 02/26/2018 SOSA ARZOLA MD Ot V72.84 EXAM PRE-OPERATIVE NOS 02/26/2018 SOSA ARZOLA MD Ot V74.8 SCREEN-BACTERIAL DIS NEC 02/26/2018 SOSA ARZOLA MD Ot 727.61 ROTATOR CUFF RUPTURE 02/26/2018 [...] 02/26/2018 RUFINA ESCOTO, NARAYAN Marr Ot V72.81 DOHP-PQO-AXNNKLQPY CARDIOVASCULAR 02/26/2018 RUFINA ESCOTO, NARAYAN Marr Ot V74.8 SCREEN-BACTERIAL DIS NEC 02/26/2018 NESS ESCOTO, SOSA Shelby Ot 715.31 LOC OSTEOARTH NOS-SHLDER 02/26/2018 NESS ESCOTO, SOSA Shelby Ot 727.61 ROTATOR CUFF RUPTURE 02/26/2018 NESS ESCOTO, SOSA Shelby Ot 840.7 (SLAP) SUPERIOR GLENOID LABRUM LESIONS 02/26/2018 SOSA ARZOLA MD Ot V72.83 EXAM PRE-OPERATIVE NEC 02/26/2018 [...] INFECTION, SITE NOT SPECIF 02/26/2018 DINO TILLMAN [facility] SECRETARY Ot R22.31 LOCALIZED SWELLING, MASS AND LUMP, RIGHT 02/26/2018 RASHEED RAHMAN Ot Z12.31 ENCNTR SCREEN MAMMOGRAM FOR MALIGNANT NE 02/26/2018 NESS ESCOTO, SOSA Shelby Ot M75.121 COMPLETE ROTATR-CUFF TEAR/RUPTR OF R JOSSY 02/26/2018 MEDARDO DUFFY MD Ot Z51.81 ENCOUNTER FOR THERAPEUTIC DRUG LEVEL MON 02/26/2018 MEDARDO DUFFY MD Ot Z79.899 OTHER ANESTHESIOLOGY PHYSICIAN (CURRENT) DRUG THERAPY 02/26/2018 MEDARDO DUFFY MD [...] SELF 02/26/2018 COURTNEY HONG Ot I70.213 ATHSCL OSAGE ARTERIES OF EXTRM W INTRMT 02/28/2018 RASHEED [...] 02/28/2018 RUFINA ESCOTO, NARAYAN Marr Ot V72.81 AJME-[id number]-OFMTCWALN CARDIOVASCULAR 02/28/2018 RUFINA ESCOTO, NARAYAN Marr Ot V74.8 SCREEN-BACTERIAL DIS NEC 02/28/2018 NESS ESCOTO, SOSA Shelby Ot 715.31 LOC OSTEOARTH NOS-SHLDER 02/28/2018 NESS ESCOTO, SOSA Shelby Ot 727.61 ROTATOR CUFF RUPTURE 02/28/2018 SOSA ARZOLA MD Ot 840.7 (SLAP) SUPERIOR GLENOID LABRUM LESIONS 02/28/2018 SOSA ARZOLA MD Ot V72.83 EXAM PRE-OPERATIVE NEC 02/28/2018 Ot G56.02 CARPAL TUNNEL SYNDROME, LEFT UPPER LIMB 02/28/2018 Ot Z01.818 ENCOUNTER FOR OTHER PREPROCEDURAL EXAMIN 02/28/2018 Ot Z11.2 ENCOUNTER FOR SCREENING FOR OTHER BACTER 02/28/2018 RASHEED RAHMAN Ot Z12.31 ENCNTR SCREEN MAMMOGRAM FOR MALIGNANT NE 02/28/2018 MORAIMA NOLE DO Ot Z13.89 ENCOUNTER FOR SCREENING FOR OTHER DISORD 02/28/2018 SOSA ARZOLA MD Ot G56.01 CARPAL TUNNEL SYNDROME, RIGHT UPPER LIMB 02/28/2018 SOSA ARZOLA MD Ot Z01.818 ENCOUNTER FOR [...] SCREEN MAMMOGRAM FOR MALIGNANT NE 02/28/2018 SOSA ARZOLA MD Ot M75.121 COMPLETE ROTATR-CUFF TEAR/RUPTR OF R JOSSY 02/28/2018 MEDARDO DUFFY MD Ot Z51.81 ENCOUNTER FOR THERAPEUTIC DRUG LEVEL MON 02/28/2018 MEDARDO DUFFY MD Ot Z79.899 OTHER ANESTHESIOLOGY PHYSICIAN (CURRENT) DRUG THERAPY 02/28/2018 MEDARDO DUFFY MD Ot Z12.31 ENCNTR SCREEN MAMMOGRAM FOR MALIGNANT NE 02/28/2018 PAMELA ESCOTO, JEN Zhong Ot M25.811 OTHER SPECIFIED JOINT DISORDERS, RIGHT S 02/28/2018 JOSEE ESCOTO FACC, ALI FACP CCDS Ot E78.4 OTHER HYPERLIPIDEMIA 02/28/2018 JOSEE ESCOTO FACC, ALI FACP CCDS Ot I10 ESSENTIAL (PRIMARY) HYPERTENSION 02/28/2018 JOSEE ESCOTO [facility] CCDS Ot J43.8 OTHER EMPHYSEMA 02/28/2018 JOSEE ESCOTO [facility], [facility] Ot R06.02 SHORTNESS OF BREATH 02/28/2018 JOSEE ESCOTO [facility] CCDS Ot Z72.0 TOBACCO USE 02/28/2018 SOSA RESENDIZ MD Ot 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 02/28/2018 SOSA RESENDIZ MD Ot T65.222D TOXIC EFFECT OF TOBACCO CIGARETTES, SELF 02/28/2018 SOSA RESENDIZ MD Ot 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 02/28/2018 SOSA RESENDIZ MD Ot T65.222D TOXIC EFFECT OF TOBACCO CIGARETTES, SELF 02/28/2018 COURTNEY HONG Evan HOSPITAL SECRETARY Ot I70.213 ATHSCL OSAGE ARTERIES OF EXTRM W INTRMT 03/05/2018 RASHEED RAHMANP Ot V76.12 OTH SCREEN MAMMO-MALIGN NEOPLASM OF SAMANTHA 03/05/2018 RASHEED RAHMANP Ot V76.12 OTH SCREEN MAMMO-MALIGN NEOPLASM OF SAMANTHA 03/05/2018 SAMEERA ESCOTO, JAMIE Ot V72.84 EXAM PRE-OPERATIVE NOS 03/05/2018 SOSA ARZOLA MD Ot 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 PATELLAE 03/05/2018 SOSA ARZOLA MD Ot V72.84 EXAM PRE-OPERATIVE NOS 03/05/2018 SOSA ARZOLA MD Ot V74.8 SCREEN-BACTERIAL DIS NEC 03/05/2018 SOSA ARZOLA MD Ot 727.61 ROTATOR CUFF RUPTURE 03/05/2018 [...] 03/05/2018 RUFINA ESCOTO, NARAYAN Marr Ot V72.81 SDAJ-JOS-HEFEDBFDM CARDIOVASCULAR 03/05/2018 RUFINA ESCOTO, NARAYAN Marr Ot [...] SITE NOT SPECIF 03/05/2018 TILLMAN DINO Radu HOSPITAL SECRETARY Ot R22.31 LOCALIZED SWELLING, MASS AND LUMP, RIGHT 03/05/2018 RASHEED RAHMAN HOSPITAL SECRETARY Ot Z12.31 ENCNTR SCREEN MAMMOGRAM FOR MALIGNANT NE 03/05/2018 NESS ESCOTO, SOSA Shelby Ot M75.121 COMPLETE ROTATR-CUFF TEAR/RUPTR OF R JOSSY 03/05/2018 CLIVE ESCOTO, MEDARDO Chowdhury Ot Z51.81 ENCOUNTER FOR THERAPEUTIC DRUG LEVEL MON 03/05/2018 MEDARDO DUFFY MD Ot Z79.899 OTHER ANESTHESIOLOGY PHYSICIAN (CURRENT) DRUG THERAPY 03/05/2018 MEDARDO DUFFY MD [...] SELF 03/05/2018 COURTNEY HONG Ot I70.213 ATHSCL OSAGE ARTERIES OF EXTRM W INTRMT 03/05/2018 COURTNEY HONG Ot I70.213 ATHSCL OSAGE ARTERIES OF EXTRM W INTRMT 03/19/2018 CITLALI ESCOTO, JUANA Lovelace Ot R06.02 SHORTNESS OF BREATH 03/19/2018 CITLALI ESCOTO, JUANA Lovelace Ot T78.40XA ALLERGY, UNSPECIFIED, INITIAL ENCOUNTER Procedures Code Description Performed By Performed On 38.93 VENOUS CATHETERIZATION NEC 08/13/2011 81.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 10/23/2011 18944 XRAY KNEE RIGHT 1 OR 2 VIEWS 02/12/2013 Q0091 PAP SMEAR OBTAIN SMEAR 06/02/2013 66335 HEMOCCULT 06/02/2013 87990 PAP SMEAR 06/05/2013 89538 CULTURE WOUND (AEROBIC) 07/06/2013 50017 URINE DRUG SCREEN (IN-HOUSE ) 09/11/2013 91945 URINE METH/AMPHETAMINE GC/ MS 09/18/2013 61660 ROUTINE VENIPUNCTURE 11/17/2013 54956 CBC 11/17/2013 OrthopedSosa Slaughter 11/20/2013 97417 HEMOCCULT 11/20/2013 14948 HEMOCCULT 11/20/2013 80280 XRAY KNEE LEFT, 1 OR 2 VIEWS 11/20/2013 99870 MAMMOGRAM, SCREENING 11/21/2013 78293 AMER[employer]OX 11/21/2013 General S Darrel Love 11/21/2013 12477 ROUTINE VENIPUNCTURE 12/02/2013 03586 CBC 12/02/2013 8767891 GFR CALC (RESULT ONLY) 12/02/2013 53319 CMP 12/02/2013 05639 LIPID PANEL 12/02/2013 49077 XRAY FOOT LEFT COMP MIN 3 VIEWS 01/05/2014 Cardiolog Roger Tripp 01/05/2014 03818 XRAY FOOT RIGHT COMP MIN 3 VIEWS 01/05/2014 62300 UA W/ CULTURE IF INDICATED 01/05/2014 72355 CULTURE URINE 01/06/2014 01529 ROUTINE VENIPUNCTURE 03/19/2014 G0008 FLU ADMINISTRATION ( MEDICARE ONLY) 03/19/2014 73671 PULMONARY EDUCATION 03/19/2014 G0437 TOBACCO-USE CLINICAL SUPPORT SPECIALIST>10MIN 03/19/2014 9494866 GFR CALC (RESULT ONLY) 03/19/2014 58576 BMP 03/19/2014 04734 MAGNESIUM 03/19/2014 Physical Physical Therapy, [facility] 03/30/2014 97010 DEBRIDE NAIL >6 04/17/2014 42321 OXIMETRY 06/03/2014 70220 [employer] 07/08/2014 57XR18D INSERTION OF INFUSION DEV INTO SUP VENA [...] 17:58 Bacteria identification in wound by culture [id number] NRG QUANTITY OF GROWTH Scant Growth NRG Whole blood basic metabolic panel - 07/13/16 22:35 Serum or plasma sodium measurement (moles/volume) 142 mmol/L 135-145 Serum or plasma potassium measurement (moles/volume) 3.4 mmol/L 3.6-5.0 Serum or plasma chloride measurement (moles/volume) 107 mmol/L 98-107 Carbon dioxide 28 mmol/L -32 Serum or plasma anion gap determination (moles/volume) [...] 08/08/16 09:37 GRAM STAIN RESULT NO [facility]ACTERIA [facility] Bacteria identification in wound by culture - 08/08/16 09:37 Bacteria identification in wound by culture [id number] NR FREE TEXT EXTERNAL (NOT JK) NRG [...] FOR INFLUENZA A AND B ANTIGENS BY [facility] Complete blood count (CBC) with [...] 12.1 fL 7.5-12.5 ABSOLUTE NEUTROPHILS 4494 cells/uL 2467-6826 ABSOLUTE LYMPHOCYTES 1711 cells/uL 850-3900 ABSOLUTE MONOCYTES 767 cells/uL 200-950 ABSOLUTE EOSINOPHILS 99 cells/uL 15-500 ABSOLUTE BASOPHILS 28 cells/uL 0-200 NEUTROPHILS 63.3 % NRG LYMPHOCYTES 24.1 % NRG MONOCYTES 10.8 % NRG EOSINOPHILS 1.4 % NRG BASOPHILS 0.4 % NRG Encounters ACCT No. Visit Date/Time Discharge Status Pt. Type Provider Facility Loc./Unit Complaint [id number] 07/06/2014 11:51:00 07/06/2014 23:59:59 CLS Outpatient JOSIAH SLOPE RUNNERNAKIARASHEED S [id number] 06/03/2014 10:36:00 06/03/2014 23:59:59 CLS Outpatient JOSIAH SLOPE RUNNER, RASHEED S [id number] 06/03/2014 10:36:00 06/03/2014 23:59:59 CLS Outpatient JOSIAH SLOPE RUNNER RASHEED S [id number] 04/17/2014 10:45:00 04/17/2014 23:59:59 CLS Outpatient JACK YUAN DO [id number] 03/19/2014 11:26:00 03/19/2014 23:59:59 CLS Outpatient JOSIAH SLOPE RUNNER, RASHEED S [id number] 01/22/2014 13:09:00 01/22/2014 23:59:59 CLS Outpatient ARIAS GRAJEDA MD [id number] 01/05/2014 09:23:00 01/05/2014 23:59:59 CLS Outpatient JOSIAH SLOPE RUNNER RASHEED S [id number] 01/05/2014 09:23:00 01/05/2014 23:59:59 CLS Outpatient JOSIAH SLOPE RUNNER RASHEED S [id number] 12/02/2013 11:14:00 12/02/2013 23:59:59 CLS Outpatient JOSIAH SLOPE RUNNER, RASHEED S [id number] 11/20/2013 13:23:00 11/20/2013 23:59:59 CLS Outpatient JOSIAH SLOPE RUNNER, RASHEED S [id number] 11/20/2013 13:23:00 11/20/2013 23:59:59 CLS Outpatient JOSIAH SLOPE RUNNER, RASHEED S [id number] 11/20/2013 12:59:00 11/20/2013 23:59:59 CLS Outpatient JACK YUAN DO [id number] 11/17/2013 10:47:00 11/17/2013 23:59:59 CLS Outpatient MADL SLOPE RUNNER, NANCY L [id number] 09/11/2013 08:36:00 09/11/2013 23:59:59 CLS Outpatient JOSIAH SLOPE RUNNER, RASHEED S [id number] 09/11/2013 08:36:00 09/11/2013 23:59:59 CLS Outpatient JOSIAH SLOPE RUNNER, RASHEED S [id number] 09/04/2013 15:45:00 09/04/2013 23:59:59 CLS Outpatient JACK YUAN DO [id number] 08/15/2013 08:26:00 08/15/2013 23:59:59 CLS Outpatient AMINA MATTHEWS MD [id number] 07/10/2013 13:22:00 07/10/2013 23:59:59 CLS Outpatient NAKIA RAHMAN APRNNDA S [id number] 06/02/2013 09:17:00 06/02/2013 23:59:59 CLS Outpatient NAKIA RAHMAN APRNNDA S [id number] 06/02/2013 09:17:00 06/02/2013 23:59:59 CLS Outpatient NICOLA RAHMAN APRNA S [id number] 02/12/2013 13:47:00 02/12/2013 23:59:59 CLS Outpatient NICOLA RAHMAN APRNA S [id number] 02/12/2013 13:47:00 02/12/2013 23:59:59 CLS Outpatient NAKIA RAHMAN APRNNDA S [id number] 06/27/2012 09:44:00 06/27/2012 23:59:59 CLS Outpatient NICOLA RAHMAN APRNA S [id number] 04/02/2012 09:21:00 04/02/2012 23:59:59 CLS Outpatient [id number] 04/02/2012 09:21:00 04/02/2012 23:59:59 CLS Outpatient NICOLA RAHMAN APRNA S [id number] 01/07/2013 09:53:00 Document Registration [id number] 10/15/2012 10:07:00 Document Registration [id number] 01/16/2018 16:20:00 01/16/2018 23:59:59 CLS Outpatient THOMAS JENNINGS APRN [facility] [id number] 01/28/2018 09:40:00 Document Registration [id number] 12/28/2017 09:00:00 Document Registration [id number] 03/17/2018 10:55:00 03/17/2018 12:14:00 DIS Outpatient CITLALI ESCOTO, JUANA Lovelace [facility] ER POSS ALLERGIC REACTION [id number] 03/05/2018 11:40:00 03/05/2018 23:59:59 CLS Outpatient COURTNEY HONG [facility] RAD I10 HTN [id number] 09/12/2017 08:19:00 11/09/2017 10:48:00 DIS Outpatient JEN SANTIAGO MD [facility] REHAB LT SHOULDER RCR [id number] 08/23/2017 08:00:00 08/27/2017 00:01:00 DIS Outpatient JEN SANTIAGO MD [facility] REHAB LT SHOULDER RCR [id number] 07/19/2017 16:27:00 07/19/2017 20:52:00 DIS Emergency GERMAN HENDERSON MD [facility] ER VOMITING, CANT EAT [id number] 05/28/2017 10:12:00 05/28/2017 23:59:59 CLS Outpatient SOSA RESENDIZ MD [facility] WOUNDCARE [id number] 05/21/2017 08:43:00 05/21/2017 23:59:59 CLS Outpatient SOSA RESENDIZ MD [facility] WOUNDCARE [id number] 05/10/2017 07:08:00 05/10/2017 23:59:59 CLS Outpatient JOSEE ESCOTO FACC, ROGER MARIE CCDS [facility] CARD R06.02 SOB [id number] 05/08/2017 09:13:00 05/08/2017 23:59:59 CLS Outpatient MEDARDO DUFFY MD [facility] RAD SCREENING [id number] 05/01/2017 08:15:00 05/01/2017 23:59:59 CLS Outpatient JEN SANTIAGO MD [facility] LAB PRE OP LABS [id number] 11/22/2016 11:00:00 11/22/2016 23:59:59 CLS Preadmit SOSA ARZOLA MD [facility] RAD SHOULDER JOINT PAIN M25.512 [id number] 10/25/2016 09:50:00 10/25/2016 23:59:59 CLS Outpatient MEDARDO DUFFY MD [facility] LAB Z79.899 [id number] 09/08/2016 08:23:00 09/08/2016 14:54:00 DIS Outpatient SOSA RESENDIZ MD [facility] WOUNDCARE [id number] 07/29/2016 07:42:00 07/29/2016 23:59:59 CLS Outpatient SOSA ARZOLA MD [facility] RAD COMPLETE ROTATOR CUFF TEAR OR RUPTURE [id number] 07/12/2016 18:16:00 07/15/2016 13:40:00 DIS Inpatient YAMILET SEGAL MD [facility] 4TH HYPOKALEMIA, NEUROTIC SKIN WOUND LEFT THIGH [id number] 04/12/2016 11:25:00 04/13/2016 16:00:00 DIS Inpatient LAURA ROBLERO MD [facility] ICU HYPOTENSION DIZZINESS ACUTE RENAL FAILURE [id number] 04/03/2016 09:24:00 04/03/2016 23:59:59 CLS Outpatient RASHEED RAHMAN [facility] RAD BREAST CANCER SCREENING [id number] 01/05/2016 10:45:00 02/21/2016 13:49:00 DIS Outpatient SOSA ARZOLA MD [facility] REHAB R SHOULDER SCOPE; BICEP TENOTOMY;DCE;SAD [id number] 01/12/2016 15:26:00 01/12/2016 23:59:59 CLS Outpatient DINO TILLMAN [facility] RAD R PROXIMAL FOREARM MAS [id number] 01/04/2016 09:53:00 01/04/2016 10:47:00 DIS Emergency LIBERTY SANDOVAL APRN [facility] ER BEE STING [id number] 12/27/2015 19:50:00 12/28/2015 05:30:00 DIS Outpatient RASHEED RAHMAN [facility] SLEEP SNORING,CHOKING/ GASPING,DAYTIME SLEEPINESS [id number] 12/08/2015 10:23:00 12/08/2015 15:32:00 DIS Outpatient SOSA ARZOLA MD [facility] SDC ARTHRITIS [id number] 11/25/2015 13:03:00 11/25/2015 13:32:00 DIS Outpatient SOSA ARZOLA MD [facility] PREOP ARTHRITIS [id number] 05/17/2015 10:40:00 05/17/2015 23:59:59 CLS Outpatient MORAIMA NOEL DO [facility] LAB INFECTION [id number] 04/30/2015 10:56:00 04/30/2015 23:59:59 CLS Outpatient MORAIMA NOEL DO [facility] RAD COPD,BRONCHITIS [id number] 04/21/2015 07:48:00 04/21/2015 11:40:00 DIS Outpatient SOSA ARZOLA MD [facility] RIGHT CARPAL TUNNEL SYNDROME [id number] 04/12/2015 08:19:00 04/12/2015 23:59:59 CLS Outpatient SOSA ARZOLA MD [facility] PREOP RIGHT CARPAL TUNNEL RELEASE [id number] 03/30/2015 10:44:00 03/30/2015 23:59:59 CLS Outpatient MORAIMA NOEL DO [facility] LAB CHECK FOR DRUGS [id number] 03/24/2015 09:00:00 03/24/2015 13:15:00 DIS Outpatient SOSA ARZOLA MD [facility] LEFT CARPAL TUNNEL SYNDROME [id number] 03/19/2015 10:46:00 03/19/2015 23:59:59 CLS Outpatient RASHEED RAHMAN [facility] RAD SCREENING [id number] 02/10/2015 10:43:00 02/10/2015 11:26:00 DIS Outpatient SOSA ARZOLA MD [facility] REHAB L SHOULDER; BICEP TENOTOMY; OPEN RC REPAIR [id number] 01/13/2015 06:00:00 01/13/2015 10:55:00 DIS Outpatient SOSA ARZOLA MD [facility] LEFT SHOULDER SLAP TEAR; ROTATOR CUFF TEAR [id number] 01/07/2015 09:59:00 01/07/2015 23:59:59 CLS Outpatient SOSA ARZOLA MD [facility] PREOP LEFT SHOULDER SLAP TEAR; ROTATOR CUFF TEAR [id number] 11/11/2014 08:36:00 11/11/2014 13:50:00 DIS Outpatient NARAYAN ALMARAZ MD [facility] DYSKNESIA [id number] 11/06/2014 12:39:00 11/06/2014 23:59:59 CLS Outpatient NARAYAN ALMARAZ MD [facility] PREOP DYSKNESIA [id number] 10/29/2014 09:26:00 10/29/2014 23:59:59 CLS Outpatient MORAIMA NOEL DO [facility] CARD PAIN IN RIGHT UPPER QUADRANT [id number] 10/22/2014 08:21:00 10/22/2014 23:59:59 CLS Outpatient MORAIMA NOEL DO [facility] RAD RUQ PAIN [id number] 10/12/2014 10:02:00 10/12/2014 23:59:59 CLS Outpatient MORAIMA NOEL DO [facility] RAD FELL RT KNEE PAIN, LOWER BACK PAIN [id number] 09/23/2014 06:00:00 09/23/2014 10:20:00 DIS Outpatient RYAN JONES MD [facility] INTRINSIC SPHINCTER DEFICIENCY; INCONTINENCE [id number] 09/16/2014 10:27:00 09/16/2014 23:59:59 CLS Outpatient RYAN JONES MD [facility] PREOP INTRINSIC SPHINCTER DEFICIENCY; INCONTINENCE [id number] 07/28/2014 09:04:00 07/28/2014 23:59:59 CLS Outpatient SOSA ARZOLA MD [facility] RAD LEFT SHOULDER RTC [id number] 04/10/2014 14:46:00 04/10/2014 15:58:00 DIS Emergency LIBERTY SANDOVAL APRN [facility] ER FEVER, SOA, DIARRHEA [id number] 04/07/2014 13:56:00 04/07/2014 17:00:00 DIS Outpatient RASHEED RAHMAN [facility] REHAB KNEE PAIN [id number] 03/04/2014 06:00:00 03/04/2014 10:10:00 DIS Outpatient SOSA ARZOLA MD [facility] LEFT KNEE CHONDROMALASIA [id number] 02/27/2014 11:49:00 02/27/2014 23:59:59 CLS Outpatient SOSA ARZOLA MD [facility] PREOP LEFT KNEE CHONDROMALASIA [id number] 02/10/2014 09:42:00 02/10/2014 17:00:00 DIS Outpatient ROGER TRIPP MD, FACC, FACP CCDS [facility] CATH ANGINA SOB DIZZINESS [id number] 02/03/2014 09:43:00 02/03/2014 23:59:59 CLS Outpatient RASHEED RAHMAN [facility] RAD SCREENING [id number] 01/30/2014 08:46:00 01/30/2014 23:59:59 CLS Outpatient JAMIE LOVE MD [facility] RECTAL BLEEDING [id number] 01/29/2014 09:11:00 01/29/2014 23:59:59 CLS Outpatient JAMIE LOVE MD [facility] PREOP RECTAL BLEEDING [id number] 10/15/2013 08:45:00 10/31/2013 12:22:00 DIS Outpatient DINO TILLMAN [facility] REHAB B LE WEAKNESS;S/P R TKA ;SEVERE L DJD [id number] 01/09/2013 11:24:00 01/09/2013 23:59:59 CLS Outpatient RASHEED RAHMAN [facility] RAD SCREENING [id number] 04/19/2018 11:00:00 PEN Preadmit COURTNEY HONG [facility] CARD OCCUSION AND STENOSIS OF BILAT CAROTID ARTERIES [id number] 03/26/2018 12:00:00 PEN Preadmit ROGER TRIPP MD, FACC, FACP CCDS [facility] CATH CLAUDICATION,SOB,BILAT LEG EDEMA [id number] 03/26/2018 09:00:00 PEN Preadmit COURTNEY HONG [facility] RAD OCCLUSION AND STENOSIS OF BILAT CAROTID ARTERIES [id number] 03/17/2015 09:34:00 Document Registration [id number] 07/27/2014 13:00:00 Document Registration [id number] 01/15/2012 10:47:00 Document Registration [id number] 10/23/2011 05:44:00 Document Registration [id number] 10/20/2011 09:40:00 Document Registration [id number] 08/12/2011 21:58:00 Document Registration [id number] 05/12/2010 11:10:00 Document Registration [email or web address] 03/19/2015 10:47:36 ACT Document Registration
[2018-03-26] MEDS ORDERED: MELO7.5T46 PO (10:36)
[2018-03-26] MEDS ORDERED: FLUO20CA42 PO (10:38)
[2018-03-26 10:42] LABS: ALANINE AMINOTRANSFERASE 21 U/L (0-55); ALBUMIN 3.9 GM/DL (3.2-4.5); ALKALINE PHOSPHATASE 63 U/L (40-136); BILIRUBIN,TOTAL 0.4 MG/DL (0.1-1.0); BUN/CREATININE RATIO 20; CALCIUM 9.4 MG/DL (8.5-10.1); CARBON DIOXIDE 24 MMOL/L (21-32); CHLORIDE 104 MMOL/L (98-107); CHOLESTEROL 152 MG/DL (< 200); CREATININE SERUM 0.88 MG/DL (0.60-1.30); GFR ESTIMATED > 60; GLUCOSE 95 MG/DL (70-105); HDL CHOLESTEROL 44 MG/DL (40-60); POTASSIUM 4.3 MMOL/L (3.6-5.0); SODIUM 138 MMOL/L (135-145); TOTAL PROTEIN 7.4 GM/DL (6.4-8.2); TRIGLYCERIDES 125 MG/DL (<150); VLDL CHOLESTEROL 25 MG/DL (5-40)
[2018-03-26] MEDS ORDERED: GABA-488 PO (10:45)
[2018-03-26] MEDS ORDERED: HYDR50CA3 PO (10:45)
[2018-03-26] MEDS ORDERED: ASPI-586 PO (10:47)
[2018-03-26] MEDS ORDERED: HEParin 1000 UNIT/ML (10ML VIAL) FOR BOLUS ONE (10:50)
[2018-03-26] MEDS ORDERED: MIDAZOLAM 5 MG/5 ML (VERSED) VIAL ONE ×2 (10:50→11:45)
[2018-03-26] MEDS ORDERED: fentaNYL INJECTION 100 MCG/2 ML AMP ONE ×2 (10:50→11:45)
--- NOTE | 2018-03-26 12:26 | Cardiac Procedure Note-CS/ASA ---
Pre-Procedure Note Pre-Op Procedure Note H&P Reviewed The H&P was reviewed, patient examined and no changes noted. Date H&P Reviewed: Mar 26, 2018 Time H&P Reviewed: 11:30 Conscious Sedation Pre-Proced Time 11:30 ASA Score 3 For ASA 3 and 4: Consider anesthesia and medical clearance. Also, for patients with a history of failed moderate sedation consider anesthesia. Airway Lungs Heart ASA score ASA 1: a normal healthy patient ASA 2: a patient with a mild systemic disease (mid diabetes, controlled hypertension, obesity ASA 3: a patient with a severe systemic disease that limits activity (angina , COPD, prior Myocardial infarction) ASA 4: a patient with an incapacitating disease that is a constant threat to life (CHF, renal failure) ASA 5: a moribund patient not expected to survive 24 hrs. (ruptured aneurysm) ASA 6: a declared brain patient whose organs are being harvested. For emergent operations, add the letter E after the classification Mallampati Classification Grade 3 Sedation Plan Analgesia, Amnesia, Plan communicated to team members, Discussed options with patient/fam, Discussed risks with patient/fam The patient is an appropriate candidate to undergo the planned procedure, sedation, and anesthesia. The patient immediately re-assessed prior to indication. DANIEL TRIPP MD FACP FAC CCDS Mar 26, 2018 12:26
[2018-03-26] MEDS ORDERED: PATIENT MAY USE OWN MEDS, ALL PO SCH (12:30)
--- NOTE | 2018-03-26 12:30 | Discharge Inst-Post CATH ---
Discharge Inst-CATH Post Cardiac Cath D/C Inst Follow Up/Plan F/u with Dr Doll in 2 weeks CARDIAC CATH DISCHARGE INSTRUCTIONS *Hold Metformin for 48 hours post heart cath. ACTIVITY * Go Home directly and rest. * Limit activity of the leg (or wrist if it was used) for 7 days including aerobics, swimming, jogging, bicycling, etc. * Restrict stair-climbing for 7 days if possible, if not, climb up with your non -cath leg, then bring together on the same step. * Avoid lifting, pushing, pulling or excessive movement of the affected extremity for 7 days. * Customary sexual activity may be resumed after 2 days-use caution not to use a position that strains or causes pain to the affected extremity. * No driving for 24 hours. * NO SMOKING. * Avoid straining for bowel movements for 7 days. * Gentle walking on level ground is allowed. * Returning to work will depend on the type of procedure and the results. Your doctor will discuss this with you. CALL YOUR DOCTOR FOR ANY OF THE FOLLOWING: *If bleeding from the puncture site occurs- Apply gentle pressure to site with clean cloth and call your doctor or EMS. * If a knot or lump forms under the skin, increases in size, or causes pain. * If bruising appears to be worsening or moving further down your leg instead of disappearing. * Temperature above 101 F. CARE OF YOUR GROIN INCISION; * Bruising or purple discoloration of the skin near the puncture site is common. * You may shower only, no bathtub bathing for 5 days. Be careful to avoid slipping as your leg may feel stiff. * If a closure device was used on your femoral artery, please see the attached guide regarding care of the device and your leg. * Leave the dressing on, until removed by office staff. CARE OF YOUR WRIST INCISION; * Bruising or purple discoloration of the skin near the puncture site is common. * You may shower. * DO NOT submerge wrist. * Leave dressing on, until removed by office staff.. DANIEL DOLL MD [facility] Mar 26, 2018 12:30
--- NOTE | 2018-03-26 12:30 | Discharge Inst-Cardiology ---
Discharge Inst-Cardiac Discharge Medications Continued Medications: Albuterol Sulfate (Ventolin Hfa) 18 Gm Hfa.aer.ad 2 PUFF INH TID PRN for SHORTNESS OF BREATH, INHALER Aspirin (Aspir 81) 81 Mg Tablet.dr 81 MG PO DAILY, TAB Budesonide/Formoterol Fumarate (Symbicort 160-4.5 Mcg Inhaler) 10.2 Gm Hfa.aer.ad 2 PUFF INH BID, INHALER Cyclobenzaprine HCl (Cyclobenzaprine HCl) 10 Mg Tablet 10 MG PO BID PRN for SPASMS, TAB Estradiol (Estradiol Tablet) 0.5 Mg Tablet 0.5 MG PO HS, TAB Fesoterodine Fumarate (Toviaz) 4 Mg Tab.sr.24h 4 MG PO BID, TAB Fluoxetine HCl (Prozac) 20 Mg Capsule 20 MG PO DAILY, CAP Gabapentin (Gabapentin) 300 Mg Capsule 300 MG PO TID, CAP Hydroxyzine Pamoate (Hydroxyzine Pamoate) 50 Mg Capsule 50 MG PO BID, CAP Meloxicam (Meloxicam) 7.5 Mg Tablet 7.5 MG PO DAILY, TAB Montelukast Sodium (Montelukast Sodium) 10 Mg Tablet 10 MG PO HS, TAB Nitrofurantoin Macrocrystal (Nitrofurantoin) 100 Mg Capsule 100 MG PO DAILY, CAP Omeprazole (Omeprazole) 20 Mg Tablet.dr 20 MG PO DAILY, TAB Ondansetron (Zofran Odt) 4 Mg Tab.rapdis 4 MG SL Q4H PRN for NAUSEA/VOMITING-1ST LINE, #10 TAB Quinapril HCl (Quinapril HCl) 20 Mg Tablet 20 MG PO BID, TAB Ranitidine HCl (Ranitidine HCl) 150 Mg Tablet 150 MG PO BID, TAB Ropinirole HCl (Ropinirole HCl) 0.5 Mg Tablet 0.5 MG PO HS, TAB Simvastatin (Simvastatin) 40 Mg Tablet 40 MG PO DAILY, TAB DANIEL TRIPP MD FACP [facility] Mar 26, 2018 12:30
--- NOTE | 2018-03-26 15:15 | OPERATIVE REPORT ---
DATE OF SERVICE: 03/26/2018 PERIPHERAL ANGIOGRAPHY REPORT INDICATIONS: The patient is a 58-year-old lady who reports symptoms of bilateral leg claudication. Recent noninvasive workup was suggestive of distal peripheral arterial disease. Given continuing symptoms of marked discomfort of the legs with walking, peripheral angiography was carried out today after having obtained an informed consent. DESCRIPTION OF PROCEDURE: She was brought to the cardiac catheterization laboratory in a fasting state. Right groin was prepared and draped in the usual sterile fashion. Lidocaine 1% with local anesthesia. Modified Seldinger technique was used to advance a 5-Dutch sheath into the right femoral artery. A 5-Dutch pigtail catheter was placed at the level of L1 and abdominal aortic angiography was performed. Subsequently, we used a crossover catheter to selectively engage the contralateral (left) superficial femoral artery and angiography was performed with runoff. The catheter was then pulled back to the left common iliac artery and angiography was performed. The catheter was then pulled to the right common iliac artery and angiography was performed with runoff. Runoffs were performed down to the level of ankles on both sides. At the end of the procedure, angiography of the right femoral artery was carried out through a sheath. The site of sheath insertion did not appear suitable for Mynx deployment. Manual pressure was used to achieve hemostasis. She tolerated the procedure well. ABDOMINAL AORTIC ANGIOGRAPHY: Abdominal aortic angiography indicates no significant abdominal aortic aneurysm. The renal arteries are identified. They appear intact without significant disease. The left renal artery system is a dual system. The aortoiliac bifurcation is intact and the proximal portions of both iliac arteries were also identified on this view and found to be intact. SELECTIVE ANGIOGRAPHY OF THE LEFT LEG ARTERIAL CIRCULATION: Left leg arterial circulation does not indicate significant disease. The left common iliac, internal iliac, external iliac, common femoral, superficial femoral and popliteal arteries appear intact. The popliteal artery trifurcates normally with good distal runoff. SELECTIVE ANGIOGRAPHY OF THE RIGHT COMMON ILIAC ARTERY WITH RUNOFF: The right common iliac artery does not exhibit significant obstructive disease. The external and internal iliacs are patent and free of significant disease. The common and superficial and deep femoral arteries are intact and without significant disease. The popliteal arteries are obscured by the presence of a right knee prosthesis. There appears to be a bifurcation of the popliteal artery with two-vessel runoff in the right leg. CONCLUSIONS: 1. No evidence of abdominal aortic aneurysm or renal artery stenosis. 2. Patent iliac and femoral arterial systems on both sides without any significant stenoses. 3. Three-vessel runoff in the left leg and two-vessel runoff in the right leg. Job ID: [id number] DocumentID: [id number] Dictated Date: 03/26/2018 12:00:55 Sexer Date: 03/26/2018 15:14:41 Dictated By: DANIEL TRIPP MD, MA, FACP, FACC,
== END 2018-03-26 16:00 | disposition home or self-care (01) ==
LOC: CATH 09:40 → SDC 12:37 → CATH 16:00
PROVIDERS: ATTEND Internal Medicine Cardiovascular Disease
DX: I73.9 Peripheral vascular disease, unspecified (principal); R60.0 Localized edema; R06.02 Shortness of breath; I10 Essential (primary) hypertension; E78.5 Hyperlipidemia, unspecified; K21.9 Gastro-esophageal reflux disease without esophagitis; E66.9 Obesity, unspecified; Z68.42 Body mass index [BMI] 45.0-49.9, adult; Z82.49 Family history of ischemic heart disease and other diseases of the circulatory system; Z79.82 Long term (current) use of aspirin; Z79.899 Other long term (current) drug therapy
CPT/HCPCS: 36415; 75625; 75716; 80053; 80061; 85027; 85610; 85730; 87081; 93005

== ENCOUNTER → 2018-03-26 | Outpatient (CLI) | payer MEDICARE, MEDICAID ==
[~2018-03-26] MED LIST changes: +ASPI-586 PO; +FLUO20CA42 PO; +HYDR50CA3 PO; +MELO7.5T46 PO; +NITR100C PO; +QUIN20TA16 PO
--- NOTE | 2018-03-26 10:43 | Diagnostic Imaging Report ---
CLINICAL INDICATION: Patient with bilateral lower extremity swelling and edema. Comparison: Ultrasound of the venous Doppler study of the bilateral lower extremities dated 04/12/2016. Procedure: Real-time bilateral lower extremity venous Doppler duplex evaluation is performed from the inguinal region through the popliteal fossa. The calf venous structures are also evaluated. Findings: The deep venous system is well visualized and is easily compressible. There is no evidence of deep venous thrombosis, valvular incompetence, or significant collateral circulation. Impression: There is no ultrasound Doppler evidence of deep venous thrombosis in the bilateral lower extremities. Dictated by: Dictated on workstation # [id number]
== END ==
LOC: RAD 08:36
PROVIDERS: ATTEND Nurse Practitioner Family
DX: I65.23 Occlusion and stenosis of bilateral carotid arteries (principal); I70.213 Atherosclerosis of native arteries of extremities with intermittent claudication, bilateral legs; R06.00 Dyspnea, unspecified; I10 Essential (primary) hypertension; E78.2 Mixed hyperlipidemia; R60.0 Localized edema
CPT/HCPCS: 93970

== ENCOUNTER → 2018-04-19 | Outpatient (CLI) | payer MEDICARE, MEDICAID ==
[~2018-04-19] MED LIST changes: +ASPI-586 PO; +FLUO20CA42 PO; +HYDR50CA3 PO; +MELO7.5T46 PO; +NITR100C PO; +QUIN20TA16 PO
== END ==
LOC: CARD 10:58
PROVIDERS: ATTEND Nurse Practitioner Family
DX: R06.09 Other forms of dyspnea (principal); R60.0 Localized edema; I65.23 Occlusion and stenosis of bilateral carotid arteries; I70.213 Atherosclerosis of native arteries of extremities with intermittent claudication, bilateral legs; I10 Essential (primary) hypertension; E78.2 Mixed hyperlipidemia
CPT/HCPCS: 93306

== ENCOUNTER 2018-05-19 10:55 | Emergency (ER) | payer MEDICARE, MEDICAID ==
[~2018-05-19] VITALS: Ht 160 cm; Wt 131.5 kg
--- OUTSIDE RECORDS SUMMARY | 2018-05-19 11:26 | XMS REPORT | Clinical Summary ---
Author Author [facility] Organization [facility] Address Unknown Phone Unavailable Care Team Providers Care Quality Measurement Specialist Name Role Phone Sayra Nickerson MD Unavailable [...] in the Health Information Management department at [phone] for further assistance in locating additional records.[facility] Allergies Comments Active Allergy Reactions Severity Noted Date "I couldn't move for 2 days - I felt like I was going to get sick" Sulfamethoxazole-Trimetho SEE COMMENTS Medium 04/01/2015 prim Bumble Bee ANAPHYLAXIS High 04/01/2015 Codeine RASH Medium 06/17/2014 Medications End Date Status Medication Sig Dispensed Refills Start Date Active simvastatin (ZOCOR) 40 mg Take 40 mg by 0 tablet mouth daily. Active quinapril(+) (ACCUPRIL) Take 20 mg by 0 20 mg tablet mouth daily. Active omeprazole DR(+) Take 20 mg by 0 (PRILOSEC) 20 mg capsule mouth daily. Active rOPINIRole (REQUIP) 0.5 Take 0.5 mg 0 mg tablet by mouth at bedtime daily. Active budesonide/formoterol Inhale 2 0 (SYMBICORT) 160/4.5 mcg Puffs by HFAA inhalation mouth twice daily. Active budesonide respule Inhale 0.25 0 (PULMICORT) 0.25 mg/2 mL mg solution nebulizer solution as directed twice daily. Active ranitidine(+) (ZANTAC) Take 150 mg 0 150 mg tablet by mouth twice daily. Active IPRATROPIUM/ALBUTEROL Inhale 2 0 SULFATE (COMBIVENT IN) Puffs by mouth every 8 hours as needed. Active hydrOXYzine (ATARAX) 50 Take 50 mg by 0 mg tablet mouth twice daily. Active epinephrine(+) (EPIPEN) 1 Inject 0.3 mg 0 mg/mL injection pen to area(s) as directed once as needed. Active OXYGEN-AIR DELIVERY Use as 0 SYSTEMS MISC directed. 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 Active montelukast (SINGULAIR) Take 10 mg by 0 10 mg tablet mouth at bedtime daily. Active estradiol (ESTRACE) 0.5 Take 0.5 mg 0 mg tablet by mouth daily. Active loratadine (CLARITIN) 10 Take 10 mg by 0 mg tablet mouth daily. Active aspirin EC 81 mg tablet Take 81 mg by 0 mouth daily. Active gabapentin (NEURONTIN) Take 300 mg 0 300 mg capsule by mouth at bedtime daily. Active nitrofurantoin SR Take 1 Cap by 14 Cap 0 (MACROBID) 100 mg capsule mouth every 5 12 hours. Active Problems Problem Noted Date Recurrent UTI [...] (BMI 30-39.9) Tobacco use disorder Social History Date Tobacco Use Types Packs/Day Years Used Started: 11/09/1993 Current Every Day Smoker Cigarettes, 0.5 21 Cigars Smokeless Tobacco: Never Used Tobacco Cessation: Ready to Quit: No; Counseling Given: Yes Alcohol Use Drinks/Week oz/Week Comments Yes 1 Cans of 0.6 beer Sex Assigned at Date Recorded Not on file Industry Job Start Date Occupation Not on file Not on file Not on file Travel End Travel History Travel Start No recent travel history available. Last Filed Vital Signs Time Taken Vital Sign Reading 04/13/2015 12:05 PM [facility] Blood Pressure 128/75 04/13/2015 12:05 PM [facility] Pulse 81 04/13/2015 12:05 PM [facility] Temperature 36.5 C (97.7 F) 03/22/2015 3:32 PM CDT Respiratory Rate 16 04/13/2015 12:05 PM [facility] Oxygen Saturation 96% - Inhaled Oxygen - Concentration 04/13/2015 9:11 AM [facility] Weight 115 kg (253 lb 8.5 oz) 04/13/2015 9:11 AM [facility] Height 162.6 cm (5' 4") 04/13/2015 9:11 AM [facility] Body Mass Index 43.52 Plan of Treatment Health Maintenance Due Date Last Done Comments HEPATITIS C SCREENING 1962 PHYSICAL (COMPREHENSIVE) 1969 EXAM HIV SCREENING 1977 DTAP/TDAP VACCINES (1 - 1980 Tdap) CERVICAL CANCER SCREENING 1992 BREAST CANCER SCREENING 2002 COLORECTAL CANCER 2012 SCREENING SHINGLES RECOMBINANT 2012 VACCINE (1 of 2) INFLUENZA VACCINE 01/09/2018 Results Not on filefrom Last 3 Months Insurance Payer Benefit Subscriber ID Type Phone Address Plan / Group MEDICARE MEDICARE xxxxxxxxxx Medicare PART A AND B [employer] [place] [facility] Medicaid [facility] xxxxxxxxxx [place] [facility] /[place]MEDI[place] Advance Directives Patient has advance care planning documents on file. For more information, please contact: [facility] [address] [place] [address]
--- OUTSIDE RECORDS SUMMARY | 2018-05-19 11:27 | XMS REPORT ---
Author Author IVAN HINOJOSA Organization [facility] Address [address] [place] [address] Care Team Providers Care Cupola Repairer Name Role Phone IVAN HINOJOSA Unavailable PROBLEMS Type Condition ICD9-CM Code KFR84-EP Code Onset Dates Condition Status SNOMED Code Problem Mild chronic obstructive pulmonary disease J44.9 Active 217072983 Problem Essential hypertension I10 Active 09067134 Problem On home oxygen therapy Z99.81 Active 072313722605 Problem Exertional asthma J45.990 Active 05985503 Problem Snoring R06.83 Active 33205635 Problem COPD (chronic obstructive pulmonary disease) with chronic bronchitis J44.9 Active 548673772 Problem History of illicit drug use Z87.898 Active 182667308 Problem Major depressive disorder, recurrent episode, moderate F33.1 Active 855344167 Problem Neuropathy G62.9 Active 570112160 Problem COPD exacerbation J44.1 Active 036749565 Problem 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 Active 55737857 Problem Agoraphobia F40.00 Active 91879768 Problem Dysthymic disorder F34.1 Active 57186954 Problem MRSA (methicillin resistant staph aureus) culture positive Z22.322 Active 360150589 Problem Impaired circulation I99.9 Active 65181316 Problem Varicose veins of both lower extremities I83.93 Active 83816280 Problem Upper respiratory tract infection, unspecified type J06.9 Active 97871119 Problem Panic disorder without agoraphobia F41.0 Active 49277710 Problem Mild persistent asthma without complication J45.30 Active 044686545 Problem Fatigue R53.83 Active 72454633 Problem Other chronic pain G89.29 Active 20868642 ALLERGIES No Information ENCOUNTERS Encounter Location Date Diagnosis [facility] [address] [facility] [id number] [address] May, [facility] [address] [place] [id number] [place] [address] 81775- 7664 Feb, [facility] [address] [address]- 7597 Feb, Low back pain M54.5 ; Other chronic pain G89.29 ; Exertional asthma J45.990 and Encounter for immunization Z23 [place] [address] [address]- [address] Feb, Skin fissures R23.4 ; Neuropathy G62.9 and Onychomycosis B35.1 [place] [address] 6[address]37- 3003 05 Feb, 2018 Dysthymic disorder F34.1 [place] [address] 99961- 7158 Feb, [place] [address] 27966- 9944 Jan, [place] [address] 09696- 7901 Jan, Abrasion of right elbow, initial encounter S50.311A ; Abrasion, right knee, initial encounter S80.211A and Sprain of other ligament of right ankle, initial encounter S93.491A [place] [address] [place] [id number] [place] [address] 01758- 2468 Jan, [facility] [address] [place] [id number] [place] [address] 57592 -0382 Jan, Injury of left ankle, initial encounter S99.912A ; Fall down stairs, initial encounter W10.8XXA and BMI 45.0-49.9, adult Z68.42 [place] [address] 97792- 0806 Jan, COPD exacerbation J44.1 [place] [address] [place] [id number] [place] [address] 95260- 3691 Jan, Dysfunction of both eustachian 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 [place] [address] [place] [id number] [place] [address] 81452- 3716 Jan, Bronchitis J40 and Acute suppurative otitis media of left ear without spontaneous rupture of tympanic membrane, recurrence not specified H66.002 [place] [address] [place] [id number] [place] [address] 36005- 1734 Jan, [place] [address] 19902- 1488 Jan, Bronchitis J40 and BMI 40.0-44.9, adult Z68.41 [place] [address] 54365- 3408 Jan, [place] [address] 54156- 1506 Dec, Gastric pain R10.9 [place] [address] 30718- 2869 Dec, [place] [address] 71605- 8026 Dec, History of illicit drug use Z87.898 ; Neuropathy G62.9 ; COPD (chronic obstructive pulmonary disease) with chronic bronchitis J44.9 and Acute pain of right knee M25.561 [place] [address] 95780- 5399 Nov, [place] [address] 19477- 0353 Nov, Onychomycosis B35.1 and Contusion of left foot, subsequent encounter S90.32XD [place] [address] 13344- 0169 Nov, COPD exacerbation J44.1 [place] [address] 88375- 7461 Sep, [place] [address] 46676- 3734 Sep, Dysthymic disorder F34.1 ; Tobacco abuse Z72.0 ; Pain in right knee M25.561 ; Pain in left knee M25.562 ; Other chronic pain G89.29 and BMI 40.0-44.9, adult Z68.41 [place] [address] [place] [id number] [place] [address] 29966- 5010 Aug, Major depressive disorder, recurrent episode, moderate F33.1 and 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 [place] [address] 68426- 9067 14 Aug, 2017 Dysthymic disorder F34.1 ; Non-pressure chronic ulcer of left thigh, unspecified ulcer stage L97.129 ; Tobacco abuse Z72.0 ; Mild chronic obstructive pulmonary disease J44.9 and Forgetfulness R68.[address] 42947- 4448 Aug, Onychomycosis B35.1 ; Fissure in skin of foot R23.4 and Foot callus L84 [facility] [place] [id number] [place] [address] 14150 -8090 Jul, Right medial knee pain M25.561 ; Upper respiratory tract infection, unspecified type J06.9 and BMI 40.0-44.9, adult Z68.41 [facility] [place] [id number] [place] [address] 98217 -7874 08 Jul, 2017 Nausea and vomiting, intractability of vomiting not specified, unspecified vomiting type R11.2 ; Left ear pain H92.02 and Gastric pain R10.9 [place] [address] 27835- 9342 Apr, Encounter for immunization Z23 [place] [address] 18015- 0954 Apr, Onychomycosis B35.1 ; Xerosis of skin L85.3 ; Neuropathy G62.9 and 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 [facility] [address] [address] Jan, Onychomycosis B35.1 and Neuropathy G62.9 [facility] [address] [address]- 4546 Dec, [facility] [address] [address]- 3597 Dec, [facility] [address] [place] [id number] [address]- 9125 Nov, [facility] [address] [place] [id number] [place] [address] 29717- 4091 Aug, [facility] [address] [place] [id number] [place] [address] 39565- 4649 Aug, [facility] [id number] [place] [address] 01074- 3387 Jul, [facility] [address] [address]- 1680 Jul, [facility] [address] [place] [address] 16773- 2302 Jul, Decubitus ulcer of left thigh, stage 2 L89.892 [facility] [address] [address]- 8936 Jul, Decubitus ulcer of left thigh, stage 2 L89.892 [facility] [address] [address]- 7933 Jul, [facility] [address] [address]- 0128 Jul, Decubitus ulcer of left thigh, stage 2 L89.892 [facility] [address] [address]- 4656 Jul, [facility] [address] [place] [address] 37847- 3953 Jul, Cellulitis of other specified site L03.818 ; Illicit drug use F19.90 and Decubitus ulcer of left thigh, stage 2 L89.892 [facility] [address] [place] [id number] [place] [address] 34815- 7025 08 Jul, 2016 [facility] [address] [place] [id number] [place] [address] 93076- 8396 Jul, Cellulitis of right breast N61.0 [facility] [address] [place] [id number] [place] [address] 15497- 5173 Jun, [facility] [address] 25839- 7473 Jun, [facility] [address] [place] [id number] [place] [address] 16045- 2736 Jun, Wheezing R06.2 and Arthralgia, unspecified joint M25.50 [facility] [address] [place] [id number] [place] [address] 83616- 0035 May, [facility] [address] [place] [id number] [place] [address] 37545- 7377 May, [facility] [address] [place] [id number] [place] [address] 20783- 6921 May, [place] [address] [place] [id number] [place] [address] 95370- 0779 May, Shortness of breath R06.02 [facility] [address] [place] [id number] [place] [address] 94284- 6118 May, Onychomycosis B35.1 and Fissure in skin of foot R23.4 [facility] [address] [place] [address] 67471- 7318 Apr, [facility] [address] [place] [id number] [place] [address] 71444 -8003 Apr, Dizziness R42 [place] [address] [place] [id number] [place] [address] 13037- 0848 14 Apr, 2016 Shortness of breath R06.02 ; Essential hypertension I10 ; Dizziness R42 and On home oxygen therapy Z99.81 [facility] [address] [place] [id number] [place] [address] 36621- 4859 10 Apr, 2016 [facility] [address] [place] [id number] [place] [address] 87466- 8893 08 Apr, 2016 [facility] [address] [place] [id number] [place] [address] 90392- 7181 Apr, [facility] [address] [place] [id number] [place] [address] 72241- 4724 Apr, [facility] [address] [place] [id number] [place] [address] 22956- 7293 Apr, [facility] [address] [place] [id number] [place] [address] 79283- 0111 Apr, [facility] [address] [place] [address] [id number] [place] [address] 14485- 9995 Apr, [facility] [address] [place] [id number] [place] [address] 01072- 3914 Mar, Mild chronic obstructive pulmonary disease J44.9 [facility] [address] [place] [id number] [place] [address] 46380- 8248 Mar, [facility] [address] [place] [id number] [place] [address] 34743- 0484 Mar, Epigastric pain R10.13 ; Low back pain M54.5 ; Other chronic pain G89.29 and Breast cancer screening Z12.39 [facility] [address] [place] [id number] [place] [address] 02936- 9078 Mar, [facility] [address] [place] [id number] [place] [address] 42241- 0349 Mar, [facility] [address] [place] [id number] [place] [address] 73121- 5268 Feb, [facility] [address] [place] [id number] [place] [address] 43286- 1273 Feb, [facility] [address] [place] [id number] [place] [address] 28124- 7089 Feb, Fissure in skin of foot R23.4 and Onychomycosis B35.1 [place] [address] [place] [id number] [place] [address] 38747- 1602 Jan, 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 [facility] [address] [place] [id number] [place] [address] 29738- 5458 Dec, Agoraphobia 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 [place] [address] [place] [id number] [place] [address] 94611- 4263 Dec, Mild persistent asthma without complication J45.30 ; Dysthymic disorder F34.1 and Upper respiratory tract infection, unspecified type J06.9 [place] [address] [place] [id number] [place] [address] 92549- 5804 Nov, 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 [place] [address] [place] [id number] [place] [address] 04695- 0715 October, 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 [place] [address] [place] [id number] [place] [address] 25805- 6707 Sep, Panic disorder without agoraphobia F41.0 ; Agoraphobia 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 and Dysthymic disorder F34.1 [facility] [id number] [place] [address] 49094- 1798 Sep, Panic attacks F41.0 [facility] [address] [place] [id number] [place] [address] 42764- 7003 Sep, [facility] [address] [place] [id number] [place] [address] 39722- 0201 Sep, Panic disorder without agoraphobia F41.0 ; Varicose veins of both lower extremities I83.93 and Fatigue R53.83 [place] [address] [address]- 2621 14 Sep, 2015 Fatigue R53.83 [place] [address] [place] [id number] [place] [address] 97457- 7082 05 Sep, 2015 [place] [address] [place] [id number] [place] [address] 72802- 6880 Aug, [place] [address] [place] [id number] [place] [address] 22538- 7217 Aug, [place] [address] [place] [id number] [place] [address] 92826- 8187 Aug, 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 [place] [address] [place] [id number] [place] [address] 07376- 1173 Aug, Panic disorder without agoraphobia F41.0 ; 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 and Dysthymic disorder F34.1 [place] [address] [place] [address] 97626- 3809 Aug, Shortness of breath R06.02 ; Panic attacks F41.0 ; COPD ( chronic obstructive pulmonary disease) J44.9 ; Tobacco abuse Z72.0 ; Family history of diabetes mellitus Z83.3 and Weight gain R63.5 [place] [address] [address]- 2218 Aug, [place] [address] [place] [id number] [place] [address] 82850- 1902 Jul, [place] [address] [place] [id number] [place] [address] 07318- 9154 Jun, Onychomycosis B35.1 ; Neuropathy G62.9 and Impaired circulation I99.9 [place] [address] [address]- 9897 09 Mar, 2015 Fissure in skin of foot R23.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 [facility] [address] [place] [id number] [address]- 2135 18 Feb, 2015 Family history of coronary arteriosclerosis V17.3 [facility] [address] [place] [id number] [place] [address] 19370- 8026 15 Feb, 2015 Allergic rhinitis due to pollen 477.0 ; Unspecified breast screening V76.10 ; Anxiety 300.00 and Family history of coronary arteriosclerosis V17.3 [facility] [address] [place] [id number] [address]- 7394 Jan, [facility] [address] [place] [id number] [place] [address] 74783- 5039 Dec, [facility] [address] [place] [id number] [place] [address] 32354- 9608 Dec, Onychomycosis 110.1 and Skin fissures 709.8 [facility] [address] [place] [id number] [place] [address] 92387- 1403 Sep, [facility] [address] [place] [id number] [place] [address] 59957- 1998 Sep, [facility] [address] [place] [address] [id number] [address]- 6812 Aug, [facility] [address] [address]- 5799 Aug, [facility] [address] [address]- 2909 Jul, [facility] [address] 6127 Jul, [facility] [address] [address]- 3258 Jun, [facility] [address] 2484 Jun, [facility] [address] [place] [address]- 3800 Jun, [facility] [address] [id number] [place] [address]- 6036 Jun, [facility] [place] [facility] [address] [id number] [place] [address]- 6439 Jun, [facility] [address] [id number] [place] [address]- 9985 May, [facility] [address] [id number] [place] [address]- 3186 May, [facility] [address] [id number] [place] [address]- 7063 May, [facility] [address] [id number] [place] [address]- 5057 May, [facility] [address] [id number] [place] [address]- 4448 May, [facility] [address] [id number] [place] [address]- 7126 May, [facility] [address] [id number] [place] [address]- 3078 May, [facility] [address] [id number] [place] [address]- 6412 May, [facility] [place] [facility] [address] [id number] [place] [address]- 7902 Apr, [facility] [place] [facility] [address] [id number] [place] [address]- 4597 Apr, [facility] [place] [facility] [address] [id number] [place] [address]- 6524 Apr, [facility] [place] [facility] [address] [id number] [place] [address]- 8793 Apr, [facility] [place] [facility] [address] [id number] [place] [address]- 9901 Apr, [facility] [place] [facility] [address] [id number] [place] [address]- 6054 Apr, [facility] [place] [facility] [address] [id number] [place] [address]- 9645 Apr, [facility] [place] [facility] [address] [id number] [place] [address]- 1253 Apr, [facility] [place] [facility] [address] [id number] [place] [address]- 5907 Apr, [facility] [place] [facility] [address] [id number] [place] [address]- 5025 Apr, [facility] [place] [facility] [address] [id number] [place] [address]- 2614 Mar, [facility] [place] [facility] [address] [id number] [place] [address]- 9795 Mar, [facility] [place] [facility] [address] [id number] [place] [address]- 3648 Mar, [facility] [place] [facility] [address] [id number] [place] [address]- 4369 Mar, [facility] [place] [facility] [address] [id number] [place] [address]- 5654 Mar, [facility] [place] [facility] [address] [id number] [place] [address]- 1570 Mar, [facility] [place] [facility] [address] [id number] [place] [address]- 7535 Mar, [facility] [place] [facility] [address] [id number] [place] [address]- 5945 Mar, [facility] [place] [facility] [address] [id number] [place] [address]- 3481 Mar, [facility] [place] [facility] [address] [id number] [place] [address]- 0885 Mar, [facility] [place] [facility] [address] [id number] [place] [address]- 2553 Mar, 2013 [facility] [place] [facility] [address] [id number] [place] [address]- 5215 22 Mar, 2013 [facility] [place] [facility] [address] [id number] [place] [address]- 3345 22 Mar, 2013 [facility] [place] [facility] [address] [id number] [place] [address]- 5016 22 Mar, 2013 [facility] [place] [facility] [address] [id number] [place] [address]- 4381 22 Mar, 2013 [facility] [place] [facility] [address] [id number] [place] [address]- 7199 20 Mar, 2013 [facility] [place] [facility] [address] [id number] [place] [address]- 1404 20 Mar, 2013 [facility] [place] [facility] [address] [id number] [place] [address]- 1666 16 Mar, 2013 [facility] [place] [facility] [address] [id number] [place] [address]- 6763 16 Mar, 2013 [facility] [place] [facility] [address] [id number] [place] [address]- 3131 15 Mar, 2013 [facility] [place] [facility] [address] [id number] [place] [address]- 8638 14 Mar, 2013 [facility] [place] [facility] [address] [id number] [place] [address]- 4751 14 Mar, 2013 [facility] [place] [facility] [address] [id number] [place] [address]- 9830 14 Mar, 2013 [facility] [place] [facility] [address] [id number] [place] [address]- 3871 14 Mar, 2014 [facility] [place] [facility] [address] [id number] [place] [address]- 0559 09 Mar, 2013 [facility] [place] [facility] [address] [id number] [place] [address]- 9214 09 Mar, 2013 [facility] [place] [facility] [address] [id number] [place] [address]- 6743 09 Mar, 2013 [facility] [place] [facility] [address] [id number] [place] [address]- 3546 Mar, 2013 [facility] [place] [facility] [address] [id number] [place] [address] 2546 30 Feb, 2013 [facility] [place] [facility] [address] [id number] [place] [address] 2546 30 Feb, 2013 [facility] [place] [facility] [address] [id number] [place] [address] 2549 30 Feb, 2013 [facility] [place] [facility] [address] [id number] [place] [address]- 3162 30 Feb, 2013 [facility] [place] [facility] [address] [id number] [place] [address]- 9936 Feb, 2013 [facility] [place] [facility] [address] [id number] [place] [address]- 2035 Feb, 2013 [facility] [place] [facility] [address] [id number] [place] [address]- 0464 Feb, 2013 [facility] [place] [facility] [address] [id number] [place] [address] 2544 Feb, 2013 [facility] [place] [facility] [address] [id number] [place] [address]- 8842 Feb, 2013 [facility] [place] [facility] [address] [id number] [place] [address]- 2544 Feb, 2013 [facility] [place] [facility] [address] [id number] [place] [address] 2540 Feb, 2013 [facility] [place] [facility] [address] [id number] [place] [address] 2546 Feb, 2013 [facility] [place] [facility] [address] [id number] [place] [address]- 3065 Jan, [facility] [place] [facility] [address] [id number] [place] [address]- 9256 Jan, [facility] [place] [facility] [address] [id number] [place] [address] Jan, [facility] [place] [facility] [address] [id number] [place] [address] Jan, [facility] [place] [facility] [address] [id number] [place] [address] Jan, [facility] [place] [facility] [address] [id number] [place] [address] Jan, [facility] [place] [facility] [address] [id number] [place] [address] Jan, [facility] [place] [facility] [address] [id number] [place] [address] Jan, [facility] [place] [facility] [address] [id number] [place] [address] Jan, [facility] [place] [facility] [address] [id number] [place] [address] Jan, [facility] [place] [facility] [address] [id number] [place] [address] Jan, [facility] [place] [facility] [address] [id number] [place] [address] Jan, [facility] [place] [facility] [address] [id number] [place] [address] Jan, [facility] [place] [facility] [address] [id number] [place] [address] Dec, [facility] [place] [facility] [address] [id number] [place] [address] Dec, [facility] [place] [facility] [address] [id number] [place] [address] Dec, [facility] [place] [facility] [address] [id number] [place] [address]- [address] Dec, [facility] [place] [facility] [address] [id number] [place] [address] Dec, 2013 [facility] [place] [facility] [address] [id number] [place] [address] Dec, 2013 [facility] [place] [facility] [address] [id number] [place] [address]- [address] Dec, 2013 [facility] [place] [facility] [address] [id number] [place] [address]- [address] Dec, 2013 [facility] [place] [facility] [address] [id number] [place] [address] Dec, 2013 [facility] [place] [facility] [address] [id number] [place] [address] Dec, 2013 [facility] [place] [facility] [address] [id number] [place] [address] Dec, 2013 [facility] [place] [facility] [address] [id number] [place] [address] Dec, 2013 [facility] [place] [facility] [address] [id number] [place] [address]- [address] Dec, 2013 [facility] [place] [facility] [address] [id number] [place] [address] Dec, 2013 [facility] [place] [facility] [address] [id number] [place] [address]- [address] Dec, [facility] [place] [facility] [address] [id number] [place] [address] Dec, [facility] [place] [facility] [address] [id number] [place] [address] Dec, [facility] [place] [facility] [address] [id number] [place] [address] Dec, [facility] [place] [facility] [address] [id number] [place] [address] Nov, [facility] [place] [facility] [address] [id number] [place] [address] Nov, [facility] [place] [facility] [address] [id number] [place] [address] Nov, [facility] [place] [facility] [address] [id number] [place] [address] Nov, [facility] [place] [facility] [address] [id number] [place] [address] Nov, [facility] [place] [facility] [address] [id number] [place] [address] Nov, [facility] [place] [facility] [address] [id number] [place] [address] 164[address] Nov, [facility] [place] [facility] [address] [id number] [place] [address] Nov, [facility] [place] [facility] [address] [id number] [place] [address] Nov, [facility] [place] [facility] [address] [id number] [place] [address] Nov, [facility] [place] [facility] [address] [id number] [place] [address] Nov, [facility] [place] [facility] [address] [id number] [place] [address] Nov, [facility] [place] [facility] [address] [id number] [place] [address] Nov, [facility] [place] [facility] [address] [id number] [place] [address] 8579 Nov, [facility] [place] [facility] [address] [id number] [place] [address] Nov, [facility] [place] [facility] [address] [id number] [place] [address] 49[address] Nov, [facility] [place] [facility] [address] [id number] [place] [address] 4269 Nov, [facility] [place] [facility] [address] [id number] [place] [address]- 1366 Nov, [facility] [place] [facility] [address] [id number] [place] [address]- [address] Nov, [facility] [place] [facility] [address] [id number] [place] [address] 50[address] Nov, [facility] [place] [facility] [address] [id number] [place] [address] 9[address] October, [facility] [place] [facility] [address] [id number] [place] [address] 57[address] October, [facility] [place] [facility] [address] [id number] [place] [address]- 99[address] October, [facility] [place] [facility] [address] [id number] [place] [address]- 7464 October, [facility] [place] [facility] [address] [id number] [place] [address]- 8[address] Sep, [facility] [place] [facility] [address] [id number] [place] [address]- 39[address] Sep, [facility] [place] [facility] [address] [id number] [place] [address]- 4970 Sep, [facility] [place] [facility] [address] [id number] [place] [address]- 3501 Sep, [facility] [place] [facility] [address] [id number] [place] [address]- 5[address] Sep, [facility] [place] [facility] [address] [id number] [place] [address]- 0416 Sep, [facility] [place] [facility] [address] [id number] [place] [address]- 3517 Sep, [facility] [place] [facility] [address] [id number] [place] [address]- 6728 Sep, [facility] [place] [facility] [address] [id number] [place] [address]- 1420 Sep, [facility] [place] [facility] [address] [id number] [place] [address]- 9[address] Aug, [facility] [address] [id number] [place] [address]- 4[address] Aug, [facility] [place] [facility] [address] [id number] [place] [address]- 7696 Aug, [facility] [place] [facility] [address] [id number] [place] [address]- 8022 Aug, [facility] [place] [facility] [address] [id number] [place] [address]- 4[address] Aug, [facility] [place] [facility] [address] [id number] [place] [address]- 3494 Aug, [facility] [place] [facility] [address] [id number] [place] [address]- 1875 Aug, [facility] [place] [facility] [address] [id number] [place] [address]- 6057 Aug, [facility] [address] [id number] [place] [address]- 264[address] Jul, [facility] [place] [facility] [address] [id number] [place] [address] 20[address] Jul, [facility] [place] [facility] [address] [id number] [place] [address]- 2967 Jun, [facility] [place] [facility] [address] [id number] [place] [address]- 9613 Jun, [facility] [place] [facility] [address] [id number] [place] [address]- 2836 Jun, [facility] [place] [facility] [address] [id number] [place] [address]- 6215 Jun, [facility] [place] [facility] [address] [id number] [place] [address]- 6066 Jun, [facility] [place] [facility] [address] [id number] [place] [address]- 4202 Jun, [facility] [address] [id number] [place] [address]- 2685 Jun, [facility] [place] [facility] [address] [id number] [place] [address]- 1794 Jun, [facility] [place] [facility] [address] [id number] [place] [address]- 6328 Jun, [facility] [place] [facility] [address] [id number] [place] [address]- 7332 Jun, [facility] [place] [facility] [address] [id number] [place] [address]- 9499 Jun, [facility] [place] [facility] [address] [id number] [place] [address]- [address] Jun, [facility] [place] [facility] [address] [id number] [place] [address]- 4750 May, [facility] [place] [facility] [address] [id number] [place] [address]- 4285 May, [facility] [place] [facility] [address] [id number] [place] [address]- 8719 May, [facility] [place] [facility] [address] [id number] [place] [address]- 8633 May, [facility] [place] [facility] [address] [id number] [place] [address]- 5911 May, [facility] [place] [facility] [address] [id number] [place] [address]- 5643 May, [facility] [place] [facility] [address] [id number] [place] [address]- 2782 May, [facility] [place] [facility] [address] [id number] [place] [address]- 7243 May, [facility] [place] [facility] [address] [id number] [place] [address]- 3601 May, [facility] [place] [facility] [address] [id number] [place] [address]- 6352 16 May, 2013 [facility] [place] [facility] [address] [id number] [place] [address]- 2360 May, [facility] [place] [facility] [address] [id number] [place] [address] May, [facility] [place] [facility] [address] [id number] [place] [address]- 6778 May, [facility] [place] [facility] [address] [id number] [place] [address]- 9375 Apr, [facility] [place] [facility] [address] [id number] [place] [address]- 2316 Apr, [facility] [place] [facility] [address] [id number] [place] [address]- 3917 Mar, [facility] [place] [facility] [address] [id number] [place] [address]- 9157 Mar, [facility] [place] [facility] [address] [id number] [place] [address]- [address]236 24 Feb, 2013 [facility] [place] [facility] [address] [id number] [place] [address]- 2242 Feb, [facility] [place] [facility] [address] [id number] [place] [address]- 1074 Feb, [facility] [place] [facility] [address] [id number] [place] [address]- 0391 Feb, [facility] [place] [facility] [address] [id number] [place] [address]- 3170 Jan, [facility] [place] [facility] [address] [id number] [place] [address]- 3392 Jan, [facility] [place] [facility] [address] [id number] [place] [address]- 7923 Jan, [facility] [place] [facility] [address] [id number] [place] [address]- 8982 Jan, [facility] [place] [facility] [address] [id number] [place] [address]- 5015 Jan, [facility] [address] [id number] [place] [address]- 4723 Jan, [facility] [place] [facility] [address] [id number] [place] [address]- 6361 Dec, [facility] [place] [facility] [address] [id number] [place] [address]- 8073 Dec, [facility] [address] [id number] [place] [address]- 6909 Dec, [facility] [address] [id number] [place] [address]- 9157 Dec, [facility] [address] [id number] [place] [address]- 8073 Nov, [facility] [address] [id number] [place] [address]- 6558 October, [facility] [address] [id number] [place] [address]- 8043 October, [facility] [address] [id number] [place] [address]- 7374 October, [facility] [address] [id number] [place] [address]- 3081 Sep, [facility] [place] [facility] [address] [id number] [place] [address]- 3803 Sep, [facility] [place] [facility] [address] [id number] [place] [address]- 9043 Jun, [facility] [place] [facility] [address] [id number] [place] [address]- 7918 Jun, [facility] [place] [facility] [address] [id number] [place] [address]- 9231 Jun, [facility] [place] [facility] [address] [id number] [place] [address]- 6455 Apr, [facility] [place] [facility] [address] [id number] [place] [address]- 7734 Apr, [facility] [place] [facility] [address] [id number] [place] [address]- 2206 Apr, [facility] [place] [facility] [address] [facility] [id number] [place] [address]- 8304 Apr, [facility] [place] [facility] [address] [id number] [place] [address]- 6401 Mar, [facility] [place] [facility] [address] [id number] [place] [address]- 7470 Mar, [facility] [place] [facility] [address] [id number] [place] [address]- 6481 Mar, [facility] [place] [facility] [address] [id number] [place] [address]- 6825 Mar, [facility] [place] [facility] [address] [id number] [place] [address]- 0958 Feb, [facility] [place] [facility] [address] [id number] [place] [address]- 9433 Feb, [facility] [place] [facility] [address] [id number] [place] [address]- 0343 Feb, [facility] [place] [facility] [address] [id number] [place] [address]- 7105 Jan, [facility] [place] [facility] [address] [id number] [place] [address]- 6648 Jan, [facility] [place] [facility] [address] [id number] [place] [address]- 5295 Jan, [facility] [place] [facility] [address] [facility] [id number] [place] [address]- 3640 Jan, [facility] [place] [facility] [address] [id number] [place] [address]- 7610 Dec, [facility] [place] [facility] [address] [id number] [place] [address]- 0900 Dec, [facility] [address] [id number] [place] [address]- 4853 Nov, [facility] [address] [id number] [place] [address]- 8530 Nov, [facility] [address] [id number] [place] [address]- 3611 October, [facility] [address] [id number] [place] [address]- 2799 October, [facility] [address] [id number] [place] [address]- 6561 October, [facility] [address] [id number] [place] [address]- 8601 Sep, [facility] [address] [id number] [place] [address]- 8525 Sep, [facility] [address] [id number] [place] [address]- 4359 Sep, [facility] [address] [id number] [place] [address]- 2649 Aug, [facility] [address] [id number] [place] [address]- 6372 Aug, [facility] [place] [facility] [address] [id number] [place] [address]- 6883 Aug, [facility] [address] [id number] [place] [address]- 3606 15 Aug, 2011 [facility] [place] [facility] [address] [id number] [place] [address]- 5115 Aug, [facility] [place] [facility] [address] [id number] [place] [address]- 7446 23 Jul, 2011 [facility] [address] [id number] [place] [address]- 9378 16 Jul, 2011 [facility] [place] [facility] [address] [id number] [place] [address]- 5486 13 Jul, 2011 [facility] [place] [facility] [address] [id number] [place] [address]- 1306 Jul, [facility] [place] [facility] [address] [id number] [place] [address]- 3656 Jul, [facility] [place] [facility] [address] [id number] [place] [address]- 3586 Jul, [facility] [place] [facility] [address] [id number] [place] [address]- 8526 Jul, [facility] [place] [facility] [address] [id number] [place] [address]- 7496 Jul, [facility] [place] [facility] [address] [id number] [place] [address]- 5096 Jun, [facility] [place] [facility] [address] [id number] [place] [address]- 3326 Jun, [facility] [place] [facility] [address] [id number] [place] [address]- 3716 May, [facility] [place] [facility] [address] [id number] [place] [address]- 6076 May, [facility] [place] [facility] [address] [facility] [id number] [place] [address]- 8996 May, [facility] [place] [facility] [address] [id number] [place] [address]- 9716 May, [facility] [place] [facility] [address] [id number] [place] [address]- 2606 Apr, [facility] [place] [facility] [address] [id number] [place] [address]- 3896 Apr, [facility] [place] [facility] [address] [facility] [id number] [place] [address]- 8426 Apr, [facility] [place] [facility] [address] [id number] [place] [address]- 2484 18 Mar, 2011 [facility] [address] [id number] [place] [address]- 7033 18 Mar, 2011 [facility] [address] [id number] [place] [address] 18 Mar, 2011 [facility] [address] [id number] [place] [address]- 4276 2011 [facility] [address] [id number] [place] [address]- 2544 Dec, [facility] [address] [id number] [place] [address]- 9371 October, [facility] [address] [id number] [place] [address]- 8971 28 May, 2010 [facility] [address] [id number] [place] [address]- 9007 13 May, 2010 [facility] [address] [id number] [place] [address]- 6172 13 May, 2010 [facility] [address] [id number] [place] [address]- 5184 06 May, 2010 [facility] [address] [facility] [id number] [place] [address]- 6410 26 Mar, 2010 [facility] [address] [id number] [place] [address]- 2543 25 Mar, 2010 [facility] [address] [id number] [place] [address]- 2543 31 May, 2009 [facility] [address] [id number] [place] [address] 2549 30 May, 2009 [facility] [place] [facility] [address] [id number] [place] [address]- 2546 08 May, 2009 [facility] [address] [id number] [place] [address]- 2543 May, [facility] [address] [facility] [id number] [place] [address] 2546 Apr, [facility] [address] [facility] [id number] [place] [address]- 2546 Apr, [facility] [address] [facility] [id number] [place] [address] 2546 October, IMMUNIZATIONS No Known Immunizations SOCIAL HISTORY Never Assessed REASON FOR VISIT 3 MO F/U Patel Garza MA PLAN OF CARE Activity Details Follow Up 3 Months Reason: VITAL SIGNS Height 64 in 2018-03-01 Blood pressure systolic 100 mmHg 2018-03-01 Blood pressure diastolic 56 mmHg 2018-03-01 MEDICATIONS Unknown Medications RESULTS No Results PROCEDURES Procedure Date Ordered Result Body Site DEBRIDE NAIL, 6 OR MORE Mar 01, 2018 INSTRUCTIONS MEDICATIONS ADMINISTERED No Known [...]
[2018-05-19] MEDS ORDERED: HYOSCYAMINE 0.125 MG (LEVSIN) TAB PO ONE (11:30)
[2018-05-19] MEDS ORDERED: ONDANSETRON 4 MG/2 ML (SDV) Z0FRAN IVP ONE (11:30)
[2018-05-19] MEDS ORDERED: NS IV 1000 ML 1,000 ML IV SCH (11:30)
--- NOTE | 2018-05-19 11:46 | ED Abdominal Pain ---
General Stated Complaint: VOMITING,DIARRHEA Source of Information: Patient Exam Limitations: No Limitations History of Present Illness Date Seen by Provider: May 19, 2018 Time Seen by Provider: 11:45 Initial Comments To ER per private vehicle with reports of vomiting and diarrhea for about 3 days. This began on of this past week. She did not vomit yesterday or today. However the diarrhea persists and is associated with lower abdominal cramping. No blood in the stools no fever no chills. Timing/Duration: 1-2 Days Severity/Quality: Moderate Location: Suprapubic Radiation: No Radiation Associated Symptoms: Nausea/Vomiting Allergies and Home Medications Allergies Coded Allergies: codeine (Unverified Allergy, Severe, ANAPHYLAXIS BUT PT CAN TAKE MORPHINE , 11/11/14) sulfamethoxazole (Unverified Allergy, Severe, 03/04/14) "STROKE-LIKE" SYMPTOMS trimethoprim (Unverified Allergy, Severe, 03/04/14) "STROKE-LIKE" SYMPTOMS venom-honey bee (Unverified Allergy, Unknown, 09/16/14) Home Medications Albuterol Sulfate 18 Gm Hfa.aer.ad, 2 PUFF INH TID PRN for SHORTNESS OF BREATH, (Reported) Aspirin 81 Mg Tablet.dr, 81 MG PO DAILY, (Reported) Budesonide/Formoterol Fumarate 10.2 Gm Hfa.aer.ad, 2 PUFF INH BID, (Reported) Cyclobenzaprine HCl 10 Mg Tablet, 10 MG PO BID PRN for SPASMS, (Reported) Estradiol 0.5 Mg Tablet, 0.5 MG PO HS, (Reported) Fesoterodine Fumarate 4 Mg Tab.sr.24h, 4 MG PO BID, (Reported) Fluoxetine HCl 20 Mg Capsule, 20 MG PO DAILY, (Reported) Gabapentin 300 Mg Capsule, 300 MG PO TID, (Reported) Hydroxyzine Pamoate 50 Mg Capsule, 50 MG PO BID, (Reported) Meloxicam 7.5 Mg Tablet, 7.5 MG PO DAILY, (Reported) Montelukast Sodium 10 Mg Tablet, 10 MG PO HS, (Reported) Nitrofurantoin Macrocrystal 100 Mg Capsule, 100 MG PO DAILY, (Reported) Omeprazole 20 Mg Tablet.dr, 20 MG PO DAILY, (Reported) Ondansetron 4 Mg Tab.rapdis, 4 MG SL Q4H PRN for NAUSEA/VOMITING-1ST LINE Prescribed by: GERMAN VALDES on 07/19/172046 Quinapril HCl 20 Mg Tablet, 20 MG PO BID, (Reported) Ranitidine HCl 150 Mg Tablet, 150 MG PO BID, (Reported) Ropinirole HCl 0.5 Mg Tablet, 0.5 MG PO HS, (Reported) Simvastatin 40 Mg Tablet, 40 MG PO DAILY, (Reported) Patient Home Medication List Home Medication List Reviewed: Yes Review of Systems Review of Systems Constitutional: see HPI EENTM: No Symptoms Reported Respiratory: No Symptoms Reported Cardiovascular: No Symptoms Reported Gastrointestinal: See HPI, Abdominal Pain, Diarrhea, Nausea Genitourinary: No Symptoms Reported Musculoskeletal: no symptoms reported Skin: no symptoms reported Psychiatric/Neurological: No Symptoms Reported Endocrine: No Symptoms Reported Past Tygmezr-Lxpbgv-Vqafqw Hx Patient Social History Drug of Choice: meth Type Used: Cigarettes Recent Foreign Travel: No Contact w/Someone Who Travel: No Recent Hopitalizations: No Immunizations Up To Date Tetanus Booster (TDap): Unknown Date of Pneumonia Vaccine: Feb 11, 2012 Date of Influenza Vaccine: Mar 12, 2018 Seasonal Allergies Seasonal Allergies: No Past Medical History Surgeries: Yes (RIGHT TKR, LEFT KNEE SCOPE, HEART CATH, LEFT SHOULDER SCOPE, BILAT CTR) Hysterectomy, Orthopedic Respiratory: Yes Asthma, Sleep Apnea, COPD Cardiac: Yes (negative heart catheter 2013, negative stress test 2016) High Cholesterol, Hypertension Neurological: Yes Reproductive Disorders: No (HYTERECTOMY) Female Reproductive Disorders: Denies [employer]CH[employer]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 No Pertinent Family Hx Physical Exam Vital Signs Vital Signs - First Documented 05/19/18 11:22 Temp 98.6 Pulse 94 Resp 17 B/P (MAP) 136/64 (88) Pulse Ox 95 O2 Delivery Room Air Capillary Refill : Height/Weight/BMI Height: 5'3.00" Weight: 275lbs. 0.0oz. 124.083174oo; 48.7 BMI Method:Stated General Appearance: WD/WN, no apparent distress, obese HEENT: PERRL/EOMI, normal ENT inspection Respiratory: normal breath sounds, no respiratory distress, no accessory muscle use Cardiovascular: regular rate, rhythm, no murmur Gastrointestinal: normal bowel sounds, soft, tenderness (suprapubic) Extremities: normal range of motion, non-tender Neurologic/Psychiatric: alert, normal mood/affect, oriented x 3 Skin: normal color, warm/dry Progress/Results/Core Measures Results/Orders Lab Results Laboratory Tests Test 05/19/18 11:35 05/19/18 12:32 05/19/18 13:01 Range/Units White Blood Count 8.3 4.3-11.0 10^3/uL Red Blood Count 5.07 4.35-5.85 10^6/uL Hemoglobin 14.3 11.5-16.0 G/DL Hematocrit 44 35-52 % Mean Corpuscular Volume 86 80-99 FL Mean Corpuscular Hemoglobin 28 25-34 PG Mean Corpuscular Hemoglobin Concent 33 32-36 G/DL Red Cell Distribution Width 14.6 H 10.0-14.5 % Platelet Count 162 130-400 10^3/uL Mean Platelet Volume 11.8 H 7.4-10.4 FL Neutrophils (%) (Auto) 64 42-75 % Lymphocytes (%) (Auto) 21 12-44 % Monocytes (%) (Auto) 11 0-12 % Eosinophils (%) (Auto) 4 0-10 % Basophils (%) (Auto) 0 0-10 % Neutrophils # (Auto) 5.3 1.8-7.8 X 10^3 Lymphocytes # (Auto) 1.8 1.0-4.0 X 10^3 Monocytes # (Auto) 0.9 0.0-1.0 X 10^3 Eosinophils # (Auto) 0.3 0.0-0.3 10^3/uL Basophils # (Auto) 0.0 0.0-0.1 10^3/uL Sodium Level 139 135-145 MMOL/L Potassium Level 4.8 3.6-5.0 MMOL/L Chloride Level 109 H 98-107 MMOL/L Carbon Dioxide Level 19 L 21-32 MMOL/L Anion Gap 11 5-14 MMOL/L Blood Urea Nitrogen 22 H 7-18 MG/DL Creatinine 0.91 0.60-1.30 MG/DL Estimat Glomerular Filtration Rate > 60 BUN/Creatinine Ratio 24 Glucose Level 94 70-105 MG/DL Calcium Level 8.6 8.5-10.1 MG/DL Corrected Calcium 8.9 8.5-10.1 MG/DL Total Bilirubin 0.3 0.1-1.0 MG/DL Aspartate Amino Transf (AST/SGOT) 18 5-34 U/L Alanine Aminotransferase (ALT/SGPT) 18 0-55 U/L Alkaline Phosphatase 65 40-136 U/L Total Protein 6.7 6.4-8.2 GM/DL Albumin 3.6 3.2-4.5 GM/DL Lipase 12 8-78 U/L Urine Color YELLOW Urine Clarity SLIGHTLY CLOUDY Urine pH 6.5 5-9 Urine Specific [place] 1.005 L 1.016-1.022 Urine Protein NEGATIVE NEGATIVE Urine Glucose (UA) NEGATIVE NEGATIVE Urine Ketones NEGATIVE NEGATIVE Urine Nitrite NEGATIVE NEGATIVE Urine Bilirubin NEGATIVE NEGATIVE Urine Urobilinogen NORMAL NORMAL MG/DL Urine Leukocyte Esterase NEGATIVE NEGATIVE Urine RBC (Auto) NEGATIVE NEGATIVE Urine RBC NONE /HPF Urine WBC NONE /HPF Urine Squamous Epithelial Cells 2-5 /HPF Urine Crystals NONE /LPF Urine Bacteria NEGATIVE /HPF Urine Casts NONE /LPF Urine Mucus NEGATIVE /LPF Urine Culture Indicated NO My Orders Orders - LIBERTY SANDOVAL APRN Cbc With Automated Diff (05/19/18 11:26) Comprehensive Metabolic Panel (05/19/18 11:26) Lipase (05/19/18 11:26) Ua Culture If Indicated (05/19/18 11:26) Iv Heplock-Insert (Order) (05/19/18 11:26) Ondansetron Injection (Zofran Injectio (05/19/18 11:30) Hyoscyamine Sl Tablet (Levsin Sl Tablet) (05/19/18 11:30) Ns Iv 1000 Ml (Sodium Chloride 0.9%) (05/19/18 11:30) Ct Abdomen/Pelvis Wo (05/19/18 11:48) Lactated Ringers (Lr 1000 Ml Iv Solution (05/19/18 12:45) Straight Cath (Urinary) (05/19/18 13:25) Diphenoxylate/Atropine Tablet (Lomotil T (05/19/18 13:30) Medications Given in ED Current Medications Medications Dose Ordered Sig/Alfred Route Start Time Stop Time Status Last Admin Dose Admin Diphenoxylate HCl/ Atropine 1 ea ONCE PRN PO 05/19/18 13:30 05/19/18 13:45 1 EA Hyoscyamine Sulfate 0.25 mg ONCE ONCE PO 05/19/18 11:30 05/19/18 11:31 DC 05/19/18 11:48 0.25 MG Ondansetron HCl 4 mg ONCE ONCE IVP 05/19/18 11:30 05/19/18 11:31 DC 05/19/18 11:48 4 MG Vital Signs/I&O 05/19/18 11:22 Temp 98.6 Pulse 94 Resp 17 B/P (MAP) 136/64 (88) Pulse Ox 95 O2 Delivery Room Air Diagnostic Imaging Diagonstic Imaging: CT Comments NAME: [facility]LLI[facility] REC#: [id number] PT STATUS: REG ER : 1960 PHYSICIAN: LIBERTY SANDOVAL APRN ADMIT DATE: 05/19/18/ER Draft Date of Exam:05/19/18 CT ABDOMEN/PELVIS WO PROCEDURE: CT abdomen and pelvis without contrast. TECHNIQUE: Multiple contiguous axial images were obtained through the abdomen and pelvis without the use of intravenous contrast. DATE: May 19, 2018. COMPARISON: CT abdomen and pelvis August 12, 2011. INDICATION: 58-year-old female, cough and diarrhea. FINDINGS: There are limitations for evaluation of the abdominal organs, neoplastic processes, abscess, and limited evaluation of the vasculature relating to the lack of intravenous contrast. There is mild dependent atelectasis in the lung bases. The heart is not enlarged. There is no pericardial effusion. The liver is normal in size and contour. The gallbladder is not seen and may be surgically absent. There is no intrahepatic or extrahepatic bile duct dilation. The main pancreatic duct is not abnormally dilated. Unremarkable appearance of the pancreatic parenchyma. The spleen is not enlarged. The adrenal glands are unremarkable. Unremarkable appearance of the renal parenchyma. Urinary collecting systems are not distended. There is no identified renal or ureteral stone. The urinary bladder is collapsed and not well evaluated. The uterus is not seen and may be surgically absent. The intestinal tract is not distended. There is no imaging finding to suggest acute appendicitis. There is no free intraperitoneal air. There is no drainable fluid collection. There is no free pelvic fluid. There are atherosclerotic calcifications. There is no identified abnormally enlarged lymph node within the abdomen or pelvis which meets CT size criteria for adenopathy. There is no identified acute bony abnormality. There are degenerative changes of the spine. IMPRESSION: CT ABDOMEN AND PELVIS. 1. No identified acute abnormality within the abdomen or pelvis. Dictated on workstation # [id number] Dict: 05/19/18 1205 Trans: 05/19/18 1211 [facility] [id number] Interpreted by: MASON HERRERA MD Electronically signed by: Departure Communication (Admissions) 1303-she was initially 130s systolic which dropped to as low as 85 systolic after she began to rest. Second IV was started and second liter of IV fluids were started. Blood pressure subsequently increased. 1422- remains alert and oriented, blood pressure is back up to 108/55. Heart rate is in the 90s. She has received 2 L of IV fluids. States she is feeling a bit better. We will discharge to home. Impression Primary Impression: Nausea, vomiting and diarrhea Disposition: HOME, SELF-CARE Condition: Improved Departure-Patient Inst. Decision time for Depature: 13:04 Referrals: [facility] (PCP) Primary Care Physician Patient Instructions: Dehydration, Diarrhea in Adolescents and Adults Add. Discharge Instructions: 1. Drink plenty of fluids to stay hydrated. Pedialyte is a great choice. Water is fine too. LIBERTY SANDOVAL [employer] May 19, 2018 11:46
[2018-05-19 11:49] LABS: BASOPHILS % (AUTO) 0 % (0-10); EOSINOPHILS # (AUTO) 0.3 10^3/uL (0.0-0.3); EOSINOPHILS % (AUTO) 4 % (0-10); HEMATOCRIT 44 % (35-52); HEMOGLOBIN 14.3 G/DL (11.5-16.0); LYMPHOCYTES # (AUTO) 1.8 X 10^3 (1.0-4.0); LYMPHOCYTES % (AUTO) 21 % (12-44); MEAN CORPUSCULAR HEMOGLOBIN 28 PG (25-34); MEAN CORPUSCULAR HGB CONC 33 G/DL (32-36); MEAN CORPUSCULAR VOLUME 86 FL (80-99); MEAN PLATELET VOLUME 11.8 FL (7.4-10.4); MONOCYTES # (AUTO) 0.9 X 10^3 (0.0-1.0); MONOCYTES % (AUTO) 11 % (0-12); NEUTROPHILS # (AUTO) 5.3 X 10^3 (1.8-7.8); NEUTROPHILS % (AUTO) 64 % (42-75); PLATELET COUNT 162 10^3/uL (130-400); RED BLOOD COUNT 5.07 10^6/uL (4.35-5.85); RED CELL DISTRIBUTION WIDTH 14.6 % (10.0-14.5); WHITE BLOOD COUNT 8.3 10^3/uL (4.3-11.0)
--- OUTSIDE RECORDS SUMMARY | 2018-05-19 11:55 | XMS REPORT | Continuity of Care Document ---
Author Author [facility] Address Unknown Phone Unavailable Allergies Active Description Code Type Severity Reaction Onset Reported/Identified Relationship to Patient Clinical Status Yes codeine [id number] Drug Allergy Mild N/A 05/27/2008 Yes codeine Drug Allergy N/A N/A 08/10/2008 Yes codeine Drug Allergy 08/10/2008 Yes bees OA N/A N/A 12/14/2008 Yes bees OA 12/14/2008 Yes Bactrim DS 800-160 mg tablet Drug Allergy N/A N/A 01/06/2014 Yes sulfamethoxazole [id number] Drug Allergy Severe N/A 03/04/2014 Yes trimethoprim [id number] Drug Allergy Severe N/A 03/04/2014 Yes hydrocodone-acetaminophen 10-325 mg tablet Drug Allergy N/A N/A 2014 Yes bee venom (honey bee) [id number] Drug Allergy Unknown N/A 09/16/2014 Yes venom-honey bee [id number] Drug Allergy Unknown N/A 09/16/2014 Yes codeine [id number] Drug Allergy Severe ANAPHYLAXIS BUT 11/11/2014 Medications [...] CHRONIC ULCER OF LEFT THIGH 01/10/2008 JOSIAH PEDIATRIC ANESTHESIOLOGIST, RASHEED S 724.5 Backache Unspecified 01/10/2008 724.5 Backache Unspecified 01/10/2008 JOSIAH PEDIATRIC ANESTHESIOLOGIST, RASHEED S 724.5 Backache Unspecified 01/10/2008 724.5 Backache Unspecified 01/10/2008 724.5 Backache Unspecified 01/10/2008 JOSIAH PEDIATRIC ANESTHESIOLOGIST, RASHEED S 724.5 Backache Unspecified 01/10/2008 JOSIAH PEDIATRIC ANESTHESIOLOGIST, RASHEED S 724.5 Backache Unspecified 01/10/2008 JOSIAH PEDIATRIC ANESTHESIOLOGIST, RASHEED S 724.5 Backache Unspecified 01/10/2008 JOSIAH PEDIATRIC ANESTHESIOLOGIST, RASHEED S 724.5 Backache Unspecified 01/10/2008 JOSIAH PEDIATRIC ANESTHESIOLOGISTNAKIA LockwoodNDA S 724.5 Backache Unspecified 01/10/2008 BYRON ESCOTO, AMINA Marr 724.5 Backache Unspecified 01/10/2008 JACK YUAN DO K 724.5 Backache Unspecified 01/10/2008 JOSIAH PEDIATRIC ANESTHESIOLOGIST, RASHEED S 724.5 Backache Unspecified 01/10/2008 JOSIAH PEDIATRIC ANESTHESIOLOGISTNAKIA LockwoodNDA S 724.5 Backache Unspecified 01/10/2008 NANCY ANAYA APRN 724.5 Backache Unspecified 01/10/2008 JOSIAH PEDIATRIC ANESTHESIOLOGIST, RASHEED S 724.5 Backache Unspecified 01/10/2008 NAKIA RAHMAN APRNNDA S 724.5 Backache Unspecified 01/10/2008 YUAN INDER HDEZA K 724.5 Backache Unspecified 01/10/2008 JOSIAH PEDIATRIC ANESTHESIOLOGIST, RASHEED S 724.5 Backache Unspecified 01/10/2008 JOSIAH PEDIATRIC ANESTHESIOLOGIST, RASHEED S 724.5 Backache Unspecified 01/10/2008 NICCI ESCOTO, ARIAS 724.5 Backache Unspecified 01/10/2008 JOSIAH PEDIATRIC ANESTHESIOLOGIST, RASHEED S 724.5 Backache Unspecified 01/10/2008 JOSIAH LERNER RASHEED S 724.5 Backache Unspecified 01/10/2008 JACK YUAN DO K 724.5 Backache Unspecified 01/10/2008 JOSIAH PEDIATRIC ANESTHESIOLOGIST, RASHEED S 724.5 Backache Unspecified 01/10/2008 JOSIAH PEDIATRIC ANESTHESIOLOGIST, RASHEED S 724.5 Backache Unspecified 01/10/2008 JOSIAH PEDIATRIC ANESTHESIOLOGIST, RASHEED S 724.5 Backache Unspecified 02/18/2008 JOSIAH PEDIATRIC ANESTHESIOLOGIST, RASHEED S 729.1 MYALGIA AND MYOSITIS UNSPECIFIED 02/18/2008 729.1 MYALGIA AND MYOSITIS UNSPECIFIED 02/18/2008 JOSIAH PEDIATRIC ANESTHESIOLOGIST, RASHEED S 729.1 MYALGIA AND MYOSITIS UNSPECIFIED 02/18/2008 729.1 MYALGIA AND MYOSITIS UNSPECIFIED 02/18/2008 729.1 MYALGIA AND MYOSITIS UNSPECIFIED 02/18/2008 JOSIAH PEDIATRIC ANESTHESIOLOGIST, RASHEED S 729.1 MYALGIA AND MYOSITIS UNSPECIFIED 02/18/2008 JOSIAH LERNER RASHEED S 729.1 MYALGIA AND MYOSITIS UNSPECIFIED 02/18/2008 JOSIAH PEDIATRIC ANESTHESIOLOGIST, RASHEED S 729.1 MYALGIA AND MYOSITIS UNSPECIFIED 02/18/2008 JOSIAH PEDIATRIC ANESTHESIOLOGIST, RASHEED S 729.1 MYALGIA AND MYOSITIS UNSPECIFIED 02/18/2008 JOSIAH PEDIATRIC ANESTHESIOLOGIST, RASHEED S 729.1 MYALGIA AND MYOSITIS UNSPECIFIED 02/18/2008 BYRON ESCOTO, AMINA Marr 729.1 MYALGIA AND MYOSITIS UNSPECIFIED 02/18/2008 JACK YUAN DO K 729.1 MYALGIA AND MYOSITIS UNSPECIFIED 02/18/2008 JOSIAH PEDIATRIC ANESTHESIOLOGIST, RASHEED S 729.1 MYALGIA AND MYOSITIS UNSPECIFIED 02/18/2008 JOSIAH PEDIATRIC ANESTHESIOLOGIST, RASHEED S 729.1 MYALGIA AND MYOSITIS UNSPECIFIED 02/18/2008 NANCY ANAYA APRN 729.1 MYALGIA AND MYOSITIS UNSPECIFIED 02/18/2008 JOSIAH LERNER RASHEED S 729.1 MYALGIA AND MYOSITIS UNSPECIFIED 02/18/2008 JOSIAH PEDIATRIC ANESTHESIOLOGIST, RASHEED S 729.1 MYALGIA AND MYOSITIS UNSPECIFIED 02/18/2008 JACK YUAN DO 729.1 MYALGIA AND MYOSITIS UNSPECIFIED 02/18/2008 JOSIAH PEDIATRIC ANESTHESIOLOGIST, RASHEED S 729.1 MYALGIA AND MYOSITIS UNSPECIFIED 02/18/2008 JOSIAH PEDIATRIC ANESTHESIOLOGIST, RASHEED S 729.1 MYALGIA AND MYOSITIS UNSPECIFIED 02/18/2008 ARIAS GRAJEDA MD 729.1 MYALGIA AND MYOSITIS UNSPECIFIED 02/18/2008 JOSIAH PEDIATRIC ANESTHESIOLOGIST, RASHEED S 729.1 MYALGIA AND MYOSITIS UNSPECIFIED 02/18/2008 JOSIAH PEDIATRIC ANESTHESIOLOGIST, RASHEED S 729.1 MYALGIA AND MYOSITIS UNSPECIFIED 02/18/2008 JACK YUAN DO K 729.1 MYALGIA AND MYOSITIS UNSPECIFIED 02/18/2008 JOSIAH PEDIATRIC ANESTHESIOLOGIST, RASHEED S 729.1 MYALGIA AND MYOSITIS UNSPECIFIED 02/18/2008 JOSIAH PEDIATRIC ANESTHESIOLOGIST, RASHEED S 729.1 MYALGIA AND MYOSITIS UNSPECIFIED 02/18/2008 JOSIAH PEDIATRIC ANESTHESIOLOGIST, RASHEED S 729.1 MYALGIA AND MYOSITIS UNSPECIFIED 06/22/2008 JOSIAH PEDIATRIC ANESTHESIOLOGIST, RASHEED S 782.1 Rash 06/22/2008 782.1 Rash 06/22/2008 JOSIAH PEDIATRIC ANESTHESIOLOGIST, RASHEED S 782.1 Rash 06/22/2008 782.1 Rash 06/22/2008 782.1 Rash 06/22/2008 JOSIAH PEDIATRIC ANESTHESIOLOGIST, RASHEED S 782.1 Rash 06/22/2008 JOSIAH PEDIATRIC ANESTHESIOLOGIST, RASHEED S 782.1 Rash 06/22/2008 JOSIAH PEDIATRIC ANESTHESIOLOGIST, RASHEED S 782.1 Rash 06/22/2008 JOSIAH PEDIATRIC ANESTHESIOLOGIST, RASHEED S 782.1 Rash 06/22/2008 JOSIAH PEDIATRIC ANESTHESIOLOGIST, RASHEED S 782.1 Rash 06/22/2008 BYRON ESCOTO, AMINA Marr 782.1 Rash 06/22/2008 JACK YUAN DO K 782.1 Rash 06/22/2008 JOSIAH PEDIATRIC ANESTHESIOLOGIST, RASHEED S 782.1 Rash 06/22/2008 JOSIAH PEDIATRIC ANESTHESIOLOGIST, RASHEED S 782.1 Rash 06/22/2008 MADL PEDIATRIC ANESTHESIOLOGIST, NANCY L 782.1 Rash 06/22/2008 JOSIAH PEDIATRIC ANESTHESIOLOGIST, RASHEED S 782.1 Rash 06/22/2008 JOSIAH PEDIATRIC ANESTHESIOLOGIST, RASHEED S 782.1 Rash 06/22/2008 YUAN DO, JACK K 782.1 Rash 06/22/2008 JOSIAH PEDIATRIC ANESTHESIOLOGIST, RASHEED S 782.1 Rash 06/22/2008 JOSIAH PEDIATRIC ANESTHESIOLOGIST, RASHEED S 782.1 Rash 06/22/2008 NICCI ESCOTO, ARIAS 782.1 Rash 06/22/2008 JOSIAH PEDIATRIC ANESTHESIOLOGIST, RASHEED S 782.1 Rash 06/22/2008 JOSIAH PEDIATRIC ANESTHESIOLOGIST, RASHEED S 782.1 Rash 06/22/2008 YUAN DO, JACK K 782.1 Rash 06/22/2008 JOSIAH PEDIATRIC ANESTHESIOLOGIST, RASHEED S 782.1 Rash 06/22/2008 JOSIAH PEDIATRIC ANESTHESIOLOGIST, RASHEED S 782.1 Rash 06/22/2008 JOSIAH PEDIATRIC ANESTHESIOLOGIST, RASHEED S 782.1 Rash 08/10/2008 JOSIAH PEDIATRIC ANESTHESIOLOGIST, RASHEED S 708.9 Unspecified Urticaria 08/10/2008 708.9 Unspecified Urticaria 08/10/2008 JOSIAH PEDIATRIC ANESTHESIOLOGIST, RASHEED S 708.9 Unspecified Urticaria 08/10/2008 708.9 Unspecified Urticaria 08/10/2008 708.9 Unspecified Urticaria 08/10/2008 JOSIAH PEDIATRIC ANESTHESIOLOGIST, RASHEED S 708.9 Unspecified Urticaria 08/10/2008 JOSIAH PEDIATRIC ANESTHESIOLOGIST, RASHEED S 708.9 Unspecified Urticaria 08/10/2008 JOSIAH PEDIATRIC ANESTHESIOLOGIST, RASHEED S 708.9 Unspecified Urticaria 08/10/2008 JOSIAH PEDIATRIC ANESTHESIOLOGIST, RASHEED S 708.9 Unspecified Urticaria 08/10/2008 JOSIAH PEDIATRIC ANESTHESIOLOGIST, RASHEED S 708.9 Unspecified Urticaria 08/10/2008 BYRON ESCOTO, AMINA Marr 708.9 Unspecified Urticaria 08/10/2008 YUAN DO, JACK K 708.9 Unspecified Urticaria 08/10/2008 JOSIAH PEDIATRIC ANESTHESIOLOGIST, RASHEED S 708.9 Unspecified Urticaria 08/10/2008 JOSIAH PEDIATRIC ANESTHESIOLOGIST, RASHEED S 708.9 Unspecified Urticaria 08/10/2008 MADL PEDIATRIC ANESTHESIOLOGIST, NANCY L 708.9 Unspecified Urticaria 08/10/2008 JOSIAH PEDIATRIC ANESTHESIOLOGIST, RASHEED S 708.9 Unspecified Urticaria 08/10/2008 JOSIAH PEDIATRIC ANESTHESIOLOGIST, RASHEED S 708.9 Unspecified Urticaria 08/10/2008 YUAN DO, JACK K 708.9 Unspecified Urticaria 08/10/2008 JOSIAH PEDIATRIC ANESTHESIOLOGIST, RASHEED S 708.9 Unspecified Urticaria 08/10/2008 JOSIAH PEDIATRIC ANESTHESIOLOGIST, RASHEED S 708.9 Unspecified Urticaria 08/10/2008 ARIAS GRAJEDA MD 708.9 Unspecified Urticaria 08/10/2008 JOSIAH PEDIATRIC ANESTHESIOLOGIST, RASHEED S 708.9 Unspecified Urticaria 08/10/2008 JOSIAH PEDIATRIC ANESTHESIOLOGIST, RASHEED S 708.9 Unspecified Urticaria 08/10/2008 YUAN DO, JACK K 708.9 Unspecified Urticaria 08/10/2008 JOSIAH PEDIATRIC ANESTHESIOLOGIST, RASHEED S 708.9 Unspecified Urticaria 08/10/2008 OJSIAH PEDIATRIC ANESTHESIOLOGIST, RASHEED S 708.9 Unspecified Urticaria 08/10/2008 JOSIAH PEDIATRIC ANESTHESIOLOGIST, RASHEED S 708.9 Unspecified Urticaria 08/17/2008 JOSIAH PEDIATRIC ANESTHESIOLOGIST, RASHEED S 465.9 Acute Upper Respiratory Infections Of Unspecified Site 08/17/2008 JOSIAH PEDIATRIC ANESTHESIOLOGIST, RASHEED S 692.81 Dermatitis Due To Cosmetics 08/17/2008 465.9 Acute Upper Respiratory Infections Of Unspecified Site 08/17/2008 692.81 Dermatitis Due To Cosmetics 08/17/2008 JOSIAH PEDIATRIC ANESTHESIOLOGIST, RASHEED S 465.9 Acute Upper Respiratory Infections Of Unspecified Site 08/17/2008 JOSIAH PEDIATRIC ANESTHESIOLOGIST, RASHEED S 692.81 Dermatitis Due To Cosmetics 08/17/2008 465.9 Acute Upper Respiratory Infections Of Unspecified Site 08/17/2008 692.81 Dermatitis Due To Cosmetics 08/17/2008 465.9 Acute Upper Respiratory Infections Of Unspecified Site 08/17/2008 692.81 Dermatitis Due To Cosmetics 08/17/2008 JOSIAH PEDIATRIC ANESTHESIOLOGIST, RASHEED S 465.9 Acute Upper Respiratory Infections Of Unspecified Site 08/17/2008 JOSIAH PEDIATRIC ANESTHESIOLOGIST, RASHEED S 692.81 Dermatitis Due To Cosmetics 08/17/2008 JOSIAH PEDIATRIC ANESTHESIOLOGIST, RASHEED S 465.9 Acute Upper Respiratory Infections Of Unspecified Site 08/17/2008 JOSIAH PEDIATRIC ANESTHESIOLOGIST, RASHEED S 692.81 Dermatitis Due To Cosmetics 08/17/2008 JOSIAH PEDIATRIC ANESTHESIOLOGIST, RASHEED S 465.9 Acute Upper Respiratory Infections Of Unspecified Site 08/17/2008 JOSIAH PEDIATRIC ANESTHESIOLOGIST, RASHEED S 692.81 Dermatitis Due To Cosmetics 08/17/2008 JOSIAH PEDIATRIC ANESTHESIOLOGIST, RASHEED S 465.9 Acute Upper Respiratory Infections Of Unspecified Site 08/17/2008 JOSIAH PEDIATRIC ANESTHESIOLOGIST, RASHEED S 692.81 Dermatitis Due To Cosmetics 08/17/2008 JOSIAH PEDIATRIC ANESTHESIOLOGIST, RASHEED S 465.9 Acute Upper Respiratory Infections Of Unspecified Site 08/17/2008 JOSIAH PEDIATRIC ANESTHESIOLOGIST, RASHEED S 692.81 Dermatitis Due To Cosmetics 08/17/2008 AMINA MATTHEWS MD 465.9 Acute Upper Respiratory Infections Of Unspecified Site 08/17/2008 AMINA MATTHEWS MD 692.81 Dermatitis Due To Cosmetics 08/17/2008 YUAN DO, JACK K 465.9 Acute Upper Respiratory Infections Of Unspecified Site 08/17/2008 YUAN DO, JACK K 692.81 Dermatitis Due To Cosmetics 08/17/2008 JOSIAH PEDIATRIC ANESTHESIOLOGIST, RASHEED S 465.9 Acute Upper Respiratory Infections Of Unspecified Site 08/17/2008 JOSIAH PEDIATRIC ANESTHESIOLOGIST, RASHEED S 692.81 Dermatitis Due To Cosmetics 08/17/2008 JOSIAH PEDIATRIC ANESTHESIOLOGIST, RASHEED S 465.9 Acute Upper Respiratory Infections Of Unspecified Site 08/17/2008 JOSIAH PEDIATRIC ANESTHESIOLOGIST, RASHEED S 692.81 Dermatitis Due To Cosmetics 08/17/2008 MADL PEDIATRIC ANESTHESIOLOGIST, NANCY L 465.9 Acute Upper Respiratory Infections Of Unspecified Site 08/17/2008 MADL PEDIATRIC ANESTHESIOLOGIST, NANCY L 692.81 Dermatitis Due To Cosmetics 08/17/2008 JOSIAH PEDIATRIC ANESTHESIOLOGIST, RASHEED S 465.9 Acute Upper Respiratory Infections Of Unspecified Site 08/17/2008 JOSIAH PEDIATRIC ANESTHESIOLOGIST, RASHEED S 692.81 Dermatitis Due To Cosmetics 08/17/2008 JOSIAH PEDIATRIC ANESTHESIOLOGIST, RASHEED S 465.9 Acute Upper Respiratory Infections Of Unspecified Site 08/17/2008 JOSIAH PEDIATRIC ANESTHESIOLOGIST, RASHEED S 692.81 Dermatitis Due To Cosmetics 08/17/2008 YUAN DO, JACK K 465.9 Acute Upper Respiratory Infections Of Unspecified Site 08/17/2008 YUAN DO, JACK K 692.81 Dermatitis Due To Cosmetics 08/17/2008 JOSIAH PEDIATRIC ANESTHESIOLOGIST, RASHEED S 465.9 Acute Upper Respiratory Infections Of Unspecified Site 08/17/2008 JOSIAH PEDIATRIC ANESTHESIOLOGIST, RASHEED S 692.81 Dermatitis Due To Cosmetics 08/17/2008 JOSIAH PEDIATRIC ANESTHESIOLOGIST, RASHEED S 465.9 Acute Upper Respiratory Infections Of Unspecified Site 08/17/2008 JOSIAH PEDIATRIC ANESTHESIOLOGIST, RASHEED S 692.81 Dermatitis Due To Cosmetics 08/17/2008 ARIAS GRAJEDA MD 465.9 Acute Upper Respiratory Infections Of Unspecified Site 08/17/2008 ARIAS GRAJEDA MD 692.81 Dermatitis Due To Cosmetics 08/17/2008 JOSIAH PEDIATRIC ANESTHESIOLOGIST, RASHEED S 465.9 Acute Upper Respiratory Infections Of Unspecified Site 08/17/2008 JOSIAH PEDIATRIC ANESTHESIOLOGIST, RASHEED S 692.81 Dermatitis Due To Cosmetics 08/17/2008 JOSIAH PEDIATRIC ANESTHESIOLOGIST, RASHEED S 465.9 Acute Upper Respiratory Infections Of Unspecified Site 08/17/2008 JOSIAH PEDIATRIC ANESTHESIOLOGIST, RASHEED S 692.81 Dermatitis Due To Cosmetics 08/17/2008 YUAN DO, JACK K 465.9 Acute Upper Respiratory Infections Of Unspecified Site 08/17/2008 YUAN DO, JACK K 692.81 Dermatitis Due To Cosmetics 08/17/2008 JOSIAH PEDIATRIC ANESTHESIOLOGIST, RASHEED S 465.9 Acute Upper Respiratory Infections Of Unspecified Site 08/17/2008 JOSIAH PEDIATRIC ANESTHESIOLOGIST, RASHEED S 692.81 Dermatitis Due To Cosmetics 08/17/2008 JOSIAH PEDIATRIC ANESTHESIOLOGIST, RASHEED S 465.9 Acute Upper Respiratory Infections Of Unspecified Site 08/17/2008 JOSIAH PEDIATRIC ANESTHESIOLOGIST, RASHEED S 692.81 Dermatitis Due To Cosmetics 08/17/2008 JOSIAH PEDIATRIC ANESTHESIOLOGIST, RASHEED S 465.9 Acute Upper Respiratory Infections Of Unspecified Site 08/17/2008 JOSIAH PEDIATRIC ANESTHESIOLOGIST, RASHEED S 692.81 Dermatitis Due To Cosmetics 10/27/2008 JOSIAH PEDIATRIC ANESTHESIOLOGIST, RASHEED S 696.1 Other Psoriasis And Similar Disorders 10/27/2008 JOSIAH PEDIATRIC ANESTHESIOLOGIST, RASHEED S 704.00 Alopecia Unspecified 10/27/2008 696.1 Other Psoriasis And Similar Disorders 10/27/2008 704.00 Alopecia Unspecified 10/27/2008 JOSIAH PEDIATRIC ANESTHESIOLOGIST, RASHEED S 696.1 Other Psoriasis And Similar Disorders 10/27/2008 JOSIAH COVARRUBIASN, RASHEED S 704.00 Alopecia Unspecified 10/27/2008 696.1 Other Psoriasis And Similar Disorders 10/27/2008 704.00 Alopecia Unspecified 10/27/2008 696.1 Other Psoriasis And Similar Disorders 10/27/2008 704.00 Alopecia Unspecified 10/27/2008 JOSIAH COVARRUBIASN, RASHEED S 696.1 Other Psoriasis And Similar Disorders 10/27/2008 JOSIAH PEDIATRIC ANESTHESIOLOGIST, RASHEED S 704.00 Alopecia Unspecified 10/27/2008 JOSIAH PEDIATRIC ANESTHESIOLOGIST, RASHEED S 696.1 Other Psoriasis And Similar Disorders 10/27/2008 JOSIAH PEDIATRIC ANESTHESIOLOGIST, RASHEED S 704.00 Alopecia Unspecified 10/27/2008 JOSIAH PEDIATRIC ANESTHESIOLOGIST, RASHEED S 696.1 Other Psoriasis And Similar Disorders 10/27/2008 JOSIAH PEDIATRIC ANESTHESIOLOGIST, RASHEED S 704.00 Alopecia Unspecified 10/27/2008 JOSIAH PEDIATRIC ANESTHESIOLOGIST, RASHEED S 696.1 Other Psoriasis And Similar Disorders 10/27/2008 JOSIAH PEDIATRIC ANESTHESIOLOGIST, RASHEED S 704.00 Alopecia Unspecified 10/27/2008 JOSIAH PEDIATRIC ANESTHESIOLOGIST, RASHEED S 696.1 Other Psoriasis And Similar Disorders 10/27/2008 JOSIAH PEDIATRIC ANESTHESIOLOGIST, RASHEED S 704.00 Alopecia Unspecified 10/27/2008 BYRON ESCOTO, AMINA Marr 696.1 Other Psoriasis And Similar Disorders 10/27/2008 BYRON ESCOTO, AMINA Marr 704.00 Alopecia Unspecified 10/27/2008 YUAN DO, JACK K 696.1 Other Psoriasis And Similar Disorders 10/27/2008 YUAN DO, JACK K 704.00 Alopecia Unspecified 10/27/2008 JOSIAH PEDIATRIC ANESTHESIOLOGIST, RASHEED S 696.1 Other Psoriasis And Similar Disorders 10/27/2008 JOSIAH PEDIATRIC ANESTHESIOLOGIST, RASHEED S 704.00 Alopecia Unspecified 10/27/2008 JOSIAH PEDIATRIC ANESTHESIOLOGIST, RASHEED S 696.1 Other Psoriasis And Similar Disorders 10/27/2008 JOSIAH PEDIATRIC ANESTHESIOLOGIST, RASHEED S 704.00 Alopecia Unspecified 10/27/2008 MADL PEDIATRIC ANESTHESIOLOGIST, NANCY L 696.1 Other Psoriasis And Similar Disorders 10/27/2008 MADL PEDIATRIC ANESTHESIOLOGIST, NANCY L 704.00 Alopecia Unspecified 10/27/2008 JOSIAH PEDIATRIC ANESTHESIOLOGIST, RASHEED S 696.1 Other Psoriasis And Similar Disorders 10/27/2008 JOSIAH PEDIATRIC ANESTHESIOLOGIST, RASHEED S 704.00 Alopecia Unspecified 10/27/2008 JOSIAH PEDIATRIC ANESTHESIOLOGIST, RASHEED S 696.1 Other Psoriasis And Similar Disorders 10/27/2008 JOSIAH PEDIATRIC ANESTHESIOLOGIST, RASHEED S 704.00 Alopecia Unspecified 10/27/2008 YUAN DO, JACK K 696.1 Other Psoriasis And Similar Disorders 10/27/2008 KWABENA HDEZ JACK K 704.00 Alopecia Unspecified 10/27/2008 JOSIAH PEDIATRIC ANESTHESIOLOGIST, RASHEED S 696.1 Other Psoriasis And Similar Disorders 10/27/2008 JOSIAH PEDIATRIC ANESTHESIOLOGIST, RASHEED S 704.00 Alopecia Unspecified 10/27/2008 JOSIAH PEDIATRIC ANESTHESIOLOGIST, RASHEED S 696.1 Other Psoriasis And Similar Disorders 10/27/2008 JOSIAH PEDIATRIC ANESTHESIOLOGIST, RASHEED S 704.00 Alopecia Unspecified 10/27/2008 NICCI ESCOTO, ARIAS 696.1 Other Psoriasis And Similar Disorders 10/27/2008 ARIAS GRAJEDA MD 704.00 Alopecia Unspecified 10/27/2008 JOSIAH PEDIATRIC ANESTHESIOLOGIST, RASHEED S 696.1 Other Psoriasis And Similar Disorders 10/27/2008 JOSIAH PEDIATRIC ANESTHESIOLOGIST, RASHEED S 704.00 Alopecia Unspecified 10/27/2008 JOSIAH PEDIATRIC ANESTHESIOLOGIST, RASHEED S 696.1 Other Psoriasis And Similar Disorders 10/27/2008 JOSIAH PEDIATRIC ANESTHESIOLOGIST, RASHEED S 704.00 Alopecia Unspecified 10/27/2008 YUAN DO, JACK K 696.1 Other Psoriasis And Similar Disorders 10/27/2008 YUAN DO, JACK K 704.00 Alopecia Unspecified 10/27/2008 JOSIAH PEDIATRIC ANESTHESIOLOGIST, RASHEED S 696.1 Other Psoriasis And Similar Disorders 10/27/2008 JOSIAH PEDIATRIC ANESTHESIOLOGIST, RASHEED S 704.00 Alopecia Unspecified 10/27/2008 JOSIAH PEDIATRIC ANESTHESIOLOGIST, RASHEED S 696.1 Other Psoriasis And Similar Disorders 10/27/2008 JOSIAH PEDIATRIC ANESTHESIOLOGIST, RASHEED S 704.00 Alopecia Unspecified 10/27/2008 JOSIAH PEDIATRIC ANESTHESIOLOGIST, RASHEED S 696.1 Other Psoriasis And Similar Disorders 10/27/2008 JOSIAH PEDIATRIC ANESTHESIOLOGIST, RASHEED S 704.00 Alopecia Unspecified 12/14/2008 JOSIAH PEDIATRIC ANESTHESIOLOGIST, RASHEED S 682.3 Cellulitis And Abscess Of Upper Arm And Forearm 12/14/2008 682.3 Cellulitis And Abscess Of Upper Arm And Forearm 12/14/2008 JOSIAH PEDIATRIC ANESTHESIOLOGIST, RASHEED S 682.3 Cellulitis And Abscess Of Upper Arm And Forearm 12/14/2008 682.3 Cellulitis And Abscess Of Upper Arm And Forearm 12/14/2008 682.3 Cellulitis And Abscess Of Upper Arm And Forearm 12/14/2008 JOSIAH PEDIATRIC ANESTHESIOLOGIST, RASHEED S 682.3 Cellulitis And Abscess Of Upper Arm And Forearm 12/14/2008 JOSIAH PEDIATRIC ANESTHESIOLOGIST, RASHEED S 682.3 Cellulitis And Abscess Of Upper Arm And Forearm 12/14/2008 JOSIAH PEDIATRIC ANESTHESIOLOGIST, RASHEED S 682.3 Cellulitis And Abscess Of Upper Arm And Forearm 12/14/2008 JOSIAH PEDIATRIC ANESTHESIOLOGIST, RASHEED S 682.3 Cellulitis And Abscess Of Upper Arm And Forearm 12/14/2008 JOSIAH PEDIATRIC ANESTHESIOLOGIST, RASHEED S 682.3 Cellulitis And Abscess Of Upper Arm And Forearm 12/14/2008 BYRON ESCOTO, AMINA Marr 682.3 Cellulitis And Abscess Of Upper Arm And Forearm 12/14/2008 JACK YUAN DO 682.3 Cellulitis And Abscess Of Upper Arm And Forearm 12/14/2008 JOSIAH PEDIATRIC ANESTHESIOLOGIST, RASHEED S 682.3 Cellulitis And Abscess Of Upper Arm And Forearm 12/14/2008 JOSIAH PEDIATRIC ANESTHESIOLOGIST, RASHEED S 682.3 Cellulitis And Abscess Of Upper Arm And Forearm 12/14/2008 JACLYN COVARRUBIASNNANCY 682.3 Cellulitis And Abscess Of Upper Arm And Forearm 12/14/2008 JOSIAH PEDIATRIC ANESTHESIOLOGIST, RASHEED S 682.3 Cellulitis And Abscess Of Upper Arm And Forearm 12/14/2008 JOSIAH PEDIATRIC ANESTHESIOLOGIST, RASHEED S 682.3 Cellulitis And Abscess Of Upper Arm And Forearm 12/14/2008 JACK YUAN DO 682.3 Cellulitis And Abscess Of Upper Arm And Forearm 12/14/2008 JOSIAH PEDIATRIC ANESTHESIOLOGIST, RASHEED S 682.3 Cellulitis And Abscess Of Upper Arm And Forearm 12/14/2008 JOSIAH PEDIATRIC ANESTHESIOLOGIST, RASHEED S 682.3 Cellulitis And Abscess Of Upper Arm And Forearm 12/14/2008 NICCI ESCOTO, ARIAS 682.3 Cellulitis And Abscess Of Upper Arm And Forearm 12/14/2008 JOSIAH PEDIATRIC ANESTHESIOLOGIST, RASHEED S 682.3 Cellulitis And Abscess Of Upper Arm And Forearm 12/14/2008 JOSIAH PEDIATRIC ANESTHESIOLOGIST, RASHEED S 682.3 Cellulitis And Abscess Of Upper Arm And Forearm 12/14/2008 JACK YUAN DO 682.3 Cellulitis And Abscess Of Upper Arm And Forearm 12/14/2008 JOSIAH PEDIATRIC ANESTHESIOLOGIST, RASHEED S 682.3 Cellulitis And Abscess Of Upper Arm And Forearm 12/14/2008 JOSIAH PEDIATRIC ANESTHESIOLOGIST, RASHEED S 682.3 Cellulitis And Abscess Of Upper Arm And Forearm 12/14/2008 JOSIAH PEDIATRIC ANESTHESIOLOGIST, RASHEED S 682.3 Cellulitis And Abscess Of Upper Arm And Forearm 08/03/2009 JOSIAH COVARRUBIASN, RASHEED S 496 CHRONIC OBSTRUCTIVE PULMONARY DISEASE 08/03/2009 496 CHRONIC OBSTRUCTIVE PULMONARY DISEASE 08/03/2009 JOSIAH PEDIATRIC ANESTHESIOLOGIST, RASHEED S 496 CHRONIC OBSTRUCTIVE PULMONARY DISEASE 08/03/2009 496 CHRONIC OBSTRUCTIVE PULMONARY DISEASE 08/03/2009 496 CHRONIC OBSTRUCTIVE PULMONARY DISEASE 08/03/2009 JOSIAH PEDIATRIC ANESTHESIOLOGIST, RASHEED S 496 CHRONIC OBSTRUCTIVE PULMONARY DISEASE 08/03/2009 JOSIAH PEDIATRIC ANESTHESIOLOGIST, RASHEED S 496 CHRONIC OBSTRUCTIVE PULMONARY DISEASE 08/03/2009 JOSIAH PEDIATRIC ANESTHESIOLOGIST, RASHEED S 496 CHRONIC OBSTRUCTIVE PULMONARY DISEASE 08/03/2009 JOSIAH PEDIATRIC ANESTHESIOLOGIST, RASHEED S 496 CHRONIC OBSTRUCTIVE PULMONARY DISEASE 08/03/2009 JOSIAH PEDIATRIC ANESTHESIOLOGIST, RASHEED S 496 CHRONIC OBSTRUCTIVE PULMONARY DISEASE 08/03/2009 BYRON ESCOTO, AMINA Marr 496 CHRONIC OBSTRUCTIVE PULMONARY DISEASE 08/03/2009 JACK YUAN DO 496 CHRONIC OBSTRUCTIVE PULMONARY DISEASE 08/03/2009 JOSIAH PEDIATRIC ANESTHESIOLOGIST, RASHEED S 496 CHRONIC OBSTRUCTIVE PULMONARY DISEASE 08/03/2009 JOSIAH PEDIATRIC ANESTHESIOLOGIST, RASHEED S 496 CHRONIC OBSTRUCTIVE PULMONARY DISEASE 08/03/2009 JACLYN PEDIATRIC ANESTHESIOLOGIST, NANCY Gordon 496 CHRONIC OBSTRUCTIVE PULMONARY DISEASE 08/03/2009 JOSIAH PEDIATRIC ANESTHESIOLOGIST, RASHEED S 496 CHRONIC OBSTRUCTIVE PULMONARY DISEASE 08/03/2009 JOSIAH PEDIATRIC ANESTHESIOLOGIST, RASHEED S 496 CHRONIC OBSTRUCTIVE PULMONARY DISEASE 08/03/2009 JACK YUAN DO K 496 CHRONIC OBSTRUCTIVE PULMONARY DISEASE 08/03/2009 JOSIAH PEDIATRIC ANESTHESIOLOGIST, RASHEED S 496 CHRONIC OBSTRUCTIVE PULMONARY DISEASE 08/03/2009 JOSIAH PEDIATRIC ANESTHESIOLOGIST, RASHEED S 496 CHRONIC OBSTRUCTIVE PULMONARY DISEASE 08/03/2009 ARIAS GRAJEDA MD 496 CHRONIC OBSTRUCTIVE PULMONARY DISEASE 08/03/2009 JOSIAH PEDIATRIC ANESTHESIOLOGIST, RASHEED S 496 CHRONIC OBSTRUCTIVE PULMONARY DISEASE 08/03/2009 JOSIAH PEDIATRIC ANESTHESIOLOGIST, RASHEED S 496 CHRONIC OBSTRUCTIVE PULMONARY DISEASE 08/03/2009 JACK YUAN DO K 496 CHRONIC OBSTRUCTIVE PULMONARY DISEASE 08/03/2009 JOSIAH PEDIATRIC ANESTHESIOLOGIST, RASHEED S 496 CHRONIC OBSTRUCTIVE PULMONARY DISEASE 08/03/2009 JOSIAH PEDIATRIC ANESTHESIOLOGIST, RASHEED S 496 CHRONIC OBSTRUCTIVE PULMONARY DISEASE 08/03/2009 JOSIAH PEDIATRIC ANESTHESIOLOGIST, RASHEED S 496 CHRONIC OBSTRUCTIVE PULMONARY DISEASE 04/05/2010 JOSIAH PEDIATRIC ANESTHESIOLOGIST, RASHEED S 535.40 Other Specified Gastritis (without Hemorrhage) 04/05/2010 535.40 Other Specified Gastritis (without Hemorrhage) 04/05/2010 JOSIHA PEDIATRIC ANESTHESIOLOGIST, RASHEED S 535.40 Other Specified Gastritis (without Hemorrhage) 04/05/2010 535.40 Other Specified Gastritis (without Hemorrhage) 04/05/2010 535.40 Other Specified Gastritis (without Hemorrhage) 04/05/2010 JOSIAH PEDIATRIC ANESTHESIOLOGIST, RASHEED S 535.40 Other Specified Gastritis (without Hemorrhage) 04/05/2010 JOSIAH PEDIATRIC ANESTHESIOLOGIST, RASHEED S 535.40 Other Specified Gastritis (without Hemorrhage) 04/05/2010 JOSIAH PEDIATRIC ANESTHESIOLOGIST, RASHEED S 535.40 Other Specified Gastritis (without Hemorrhage) 04/05/2010 JOSIAH PEDIATRIC ANESTHESIOLOGIST, RASHEED S 535.40 Other Specified Gastritis (without Hemorrhage) 04/05/2010 JOSIAH PEDIATRIC ANESTHESIOLOGIST, RASHEED S 535.40 Other Specified Gastritis (without Hemorrhage) 04/05/2010 AMINA MATTHEWS MD 535.40 Other Specified Gastritis (without Hemorrhage) 04/05/2010 JACK YUAN DO 535.40 Other Specified Gastritis (without Hemorrhage) 04/05/2010 JOSIAH PEDIATRIC ANESTHESIOLOGIST, RASHEED S 535.40 Other Specified Gastritis (without Hemorrhage) 04/05/2010 JOSIAH PEDIATRIC ANESTHESIOLOGIST, RASHEED S 535.40 Other Specified Gastritis (without Hemorrhage) 04/05/2010 NANCY ANAYA APRN L 535.40 Other Specified Gastritis (without Hemorrhage) 04/05/2010 JOSIAH PEDIATRIC ANESTHESIOLOGIST, RASHEED S 535.40 Other Specified Gastritis (without Hemorrhage) 04/05/2010 JOSIAH PEDIATRIC ANESTHESIOLOGIST, RASHEED S 535.40 Other Specified Gastritis (without Hemorrhage) 04/05/2010 JACK YUAN DO 535.40 Other Specified Gastritis (without Hemorrhage) 04/05/2010 JOSIAH PEDIATRIC ANESTHESIOLOGIST, RASHEED S 535.40 Other Specified Gastritis (without Hemorrhage) 04/05/2010 JOSIAH PEDIATRIC ANESTHESIOLOGIST, RASHEED S 535.40 Other Specified Gastritis (without Hemorrhage) 04/05/2010 ARIAS GRAJEDA MD 535.40 Other Specified Gastritis (without Hemorrhage) 04/05/2010 JOSIAH PEDIATRIC ANESTHESIOLOGIST, RASHEED S 535.40 Other Specified Gastritis (without Hemorrhage) 04/05/2010 JOSIAH PEDIATRIC ANESTHESIOLOGIST, RASHEED S 535.40 Other Specified Gastritis (without Hemorrhage) 04/05/2010 YUAN DO, JACK K 535.40 Other Specified Gastritis (without Hemorrhage) 04/05/2010 JOSIAH PEDIATRIC ANESTHESIOLOGIST, RASHEED S 535.40 Other Specified Gastritis (without Hemorrhage) 04/05/2010 JOSIAH PEDIATRIC ANESTHESIOLOGIST, RASHEED S 535.40 Other Specified Gastritis (without Hemorrhage) 04/05/2010 JOSIAH PEDIATRIC ANESTHESIOLOGIST RASHEED S 535.40 Other Specified Gastritis (without Hemorrhage) 05/23/2010 JOSIAH PEDIATRIC ANESTHESIOLOGIST, RASHEED S V18.0 FAM HX DIABETES MELLITUS 05/23/2010 V18.0 FAM HX DIABETES MELLITUS 05/23/2010 JOSIAH PEDIATRIC ANESTHESIOLOGIST RASHEED S V18.0 FAM HX DIABETES MELLITUS 05/23/2010 V18.0 FAM HX DIABETES MELLITUS 05/23/2010 V18.0 FAM HX DIABETES MELLITUS 05/23/2010 JOSIAH PEDIATRIC ANESTHESIOLOGISTNAKIARASHEED S V18.0 FAM HX DIABETES MELLITUS 05/23/2010 JOSIAH PEDIATRIC ANESTHESIOLOGISTNAKIARASHEED S V18.0 FAM HX DIABETES MELLITUS 05/23/2010 JOSIAH PEDIATRIC ANESTHESIOLOGIST RASHEED S V18.0 FAM HX DIABETES MELLITUS 05/23/2010 JOSIAH PEDIATRIC ANESTHESIOLOGISTNAKIARASHEED S V18.0 FAM HX DIABETES MELLITUS 05/23/2010 NAKIA RAHMAN APRNNDA S V18.0 FAM HX DIABETES MELLITUS 05/23/2010 AMINA MATTHEWS MD V18.0 FAM HX DIABETES MELLITUS 05/23/2010 JACK YUAN DO K V18.0 FAM HX DIABETES MELLITUS 05/23/2010 JOSIAH PEDIATRIC ANESTHESIOLOGIST RASHEED S V18.0 FAM HX DIABETES MELLITUS 05/23/2010 JOSIAH PEDIATRIC ANESTHESIOLOGIST RASHEED S V18.0 FAM HX DIABETES MELLITUS 05/23/2010 NANCY ANAYA APRN V18.0 FAM HX DIABETES MELLITUS 05/23/2010 JOSIAH PEDIATRIC ANESTHESIOLOGIST, RASHEED S V18.0 FAM HX DIABETES MELLITUS 05/23/2010 JOSIAH PEDIATRIC ANESTHESIOLOGIST, RASHEED S V18.0 FAM HX DIABETES MELLITUS 05/23/2010 JACK YUAN DO K V18.0 FAM HX DIABETES MELLITUS 05/23/2010 JOSIAH PEDIATRIC ANESTHESIOLOGIST RASHEED S V18.0 FAM HX DIABETES MELLITUS 05/23/2010 JOSIAH COVARRUBIASN, RASHEED S V18.0 FAM HX DIABETES MELLITUS 05/23/2010 ARIAS GRAJEDA MD V18.0 FAM HX DIABETES MELLITUS 05/23/2010 JOSIAH PEDIATRIC ANESTHESIOLOGIST, RASHEED S V18.0 FAM HX DIABETES MELLITUS 05/23/2010 JOSIAH PEDIATRIC ANESTHESIOLOGIST, RASHEED S V18.0 FAM HX DIABETES MELLITUS 05/23/2010 JACK YUAN DO V18.0 FAM HX DIABETES MELLITUS 05/23/2010 JOSIAH PEDIATRIC ANESTHESIOLOGIST, RASHEED S V18.0 FAM HX DIABETES MELLITUS 05/23/2010 JOSIAH PEDIATRIC ANESTHESIOLOGIST, RASHEED S V18.0 FAM HX DIABETES MELLITUS 05/23/2010 JOSIAH PEDIATRIC ANESTHESIOLOGIST, RASHEED S V18.0 FAM HX DIABETES MELLITUS [...] COVARRUBIASN, RASHEED S 780.79 Fatigue 10/25/2010 JOSIAH PEDIATRIC ANESTHESIOLOGIST, RASHEED S 787.91 Diarrhea 10/25/2010 JOSIAH COVARRUBIASN, RASHEED S 788.1 Dysuria 10/25/2010 JOSIAH LERNER, RASHEED S 799.02 Hypoxemia 10/25/2010 780.57 Unspecified Sleep Apnea 10/25/2010 780.79 Fatigue 10/25/2010 787.91 Diarrhea 10/25/2010 788.1 Dysuria 10/25/2010 799.02 Hypoxemia 10/25/2010 780.57 Unspecified Sleep Apnea 10/25/2010 780.79 Fatigue 10/25/2010 787.91 Diarrhea 10/25/2010 788.1 Dysuria 10/25/2010 799.02 Hypoxemia 10/25/2010 JOSIAH PEDIATRIC ANESTHESIOLOGIST, RASHEED S 780.57 Unspecified Sleep Apnea 10/25/2010 JOSIAH PEDIATRIC ANESTHESIOLOGIST, RASHEED S 780.79 Fatigue 10/25/2010 JOSIAH PEDIATRIC ANESTHESIOLOGIST, RASHEED S 787.91 Diarrhea 10/25/2010 JOSIAH PEDIATRIC ANESTHESIOLOGIST, RASHEED S 788.1 Dysuria 10/25/2010 JOSIAH PEDIATRIC ANESTHESIOLOGIST, RASHEED S 799.02 Hypoxemia 10/25/2010 JOSIAH PEDIATRIC ANESTHESIOLOGIST, RASHEED S 780.57 Unspecified Sleep Apnea 10/25/2010 JOSIAH PEDIATRIC ANESTHESIOLOGIST, RASHEED S 780.79 Fatigue 10/25/2010 JOSIAH PEDIATRIC ANESTHESIOLOGIST, RASHEED S 787.91 Diarrhea 10/25/2010 JOSIAH PEDIATRIC ANESTHESIOLOGIST, RASHEED S 788.1 Dysuria 10/25/2010 JOSIAH PEDIATRIC ANESTHESIOLOGIST, RASHEED S 799.02 Hypoxemia 10/25/2010 JOSIAH PEDIATRIC ANESTHESIOLOGIST, RASHEED S 780.57 Unspecified Sleep Apnea 10/25/2010 JOSIAH PEDIATRIC ANESTHESIOLOGIST, RASHEED S 780.79 Fatigue 10/25/2010 JOSIAH PEDIATRIC ANESTHESIOLOGIST, RASHEED S 787.91 Diarrhea 10/25/2010 JOSIAH PEDIATRIC ANESTHESIOLOGIST, RASHEED S 788.1 Dysuria 10/25/2010 JOSIAH PEDIATRIC ANESTHESIOLOGIST, RASHEED S 799.02 Hypoxemia 10/25/2010 JOSIAH PEDIATRIC ANESTHESIOLOGIST, RASHEED S 780.57 Unspecified Sleep Apnea 10/25/2010 JOSIAH PEDIATRIC ANESTHESIOLOGIST, RASHEED S 780.79 Fatigue 10/25/2010 JOSIAH PEDIATRIC ANESTHESIOLOGIST, RASHEED S 787.91 Diarrhea 10/25/2010 JOSIAH PEDIATRIC ANESTHESIOLOGIST, RASHEED S 788.1 Dysuria 10/25/2010 JOSIAH PEDIATRIC ANESTHESIOLOGIST, RASHEED S 799.02 Hypoxemia 10/25/2010 JOSIAH PEDIATRIC ANESTHESIOLOGIST, RASHEED S 780.57 Unspecified Sleep Apnea 10/25/2010 JOSIAH PEDIATRIC ANESTHESIOLOGIST, RASHEED S 780.79 Fatigue 10/25/2010 JOSIAH PEDIATRIC ANESTHESIOLOGIST, RASHEED S 787.91 Diarrhea 10/25/2010 JOSIAH PEDIATRIC ANESTHESIOLOGIST, RASHEED S 788.1 Dysuria 10/25/2010 JOSIAH PEDIATRIC ANESTHESIOLOGIST, RASHEED S 799.02 Hypoxemia 10/25/2010 AMINA MATTHEWS [...] DO, JACK K 799.02 Hypoxemia 10/25/2010 JOSIAH PEDIATRIC ANESTHESIOLOGIST, RASHEED S 780.57 Unspecified Sleep Apnea 10/25/2010 JOSIAH PEDIATRIC ANESTHESIOLOGIST, RASHEED S 780.79 Fatigue 10/25/2010 JOSIAH PEDIATRIC ANESTHESIOLOGIST, RASHEED S 787.91 Diarrhea 10/25/2010 JOSIAH PEDIATRIC ANESTHESIOLOGIST, RASHEED S 788.1 Dysuria 10/25/2010 JOSIAH PEDIATRIC ANESTHESIOLOGIST, RASHEED S 799.02 Hypoxemia 10/25/2010 JOSIAH PEDIATRIC ANESTHESIOLOGIST, RASHEED S 780.57 Unspecified Sleep Apnea 10/25/2010 JOSIAH PEDIATRIC ANESTHESIOLOGIST, RASHEED S 780.79 Fatigue 10/25/2010 JOSIAH PEDIATRIC ANESTHESIOLOGIST, RASHEED S 787.91 Diarrhea 10/25/2010 JOSIAH PEDIATRIC ANESTHESIOLOGIST, RASHEED S 788.1 Dysuria 10/25/2010 JOSIAH PEDIATRIC ANESTHESIOLOGIST, RASHEED S 799.02 Hypoxemia 10/25/2010 MADL PEDIATRIC ANESTHESIOLOGIST, NANCY L 780.57 Unspecified Sleep Apnea 10/25/2010 MADL PEDIATRIC ANESTHESIOLOGIST, NANCY L 780.79 Fatigue 10/25/2010 MADL PEDIATRIC ANESTHESIOLOGIST, NANCY L 787.91 Diarrhea 10/25/2010 MADL PEDIATRIC ANESTHESIOLOGIST, NANCY L 788.1 Dysuria 10/25/2010 MADL PEDIATRIC ANESTHESIOLOGIST, NANCY L 799.02 Hypoxemia 10/25/2010 JOSIAH PEDIATRIC ANESTHESIOLOGIST, RASHEED S 780.57 Unspecified Sleep Apnea 10/25/2010 JOSIAH PEDIATRIC ANESTHESIOLOGIST, RASHEED S 780.79 Fatigue 10/25/2010 JOSIAH PEDIATRIC ANESTHESIOLOGIST, RASHEED S 787.91 Diarrhea 10/25/2010 JOSIAH PEDIATRIC ANESTHESIOLOGIST, RASHEED S 788.1 Dysuria 10/25/2010 JOSIAH PEDIATRIC ANESTHESIOLOGIST, RASHEED S 799.02 Hypoxemia 10/25/2010 JOSIAH PEDIATRIC ANESTHESIOLOGIST, RASHEED S 780.57 Unspecified Sleep Apnea 10/25/2010 JOSIAH PEDIATRIC ANESTHESIOLOGIST, RASHEED S 780.79 Fatigue 10/25/2010 JOSIAH PEDIATRIC ANESTHESIOLOGIST, RASHEED S 787.91 Diarrhea 10/25/2010 JOSIAH PEDIATRIC ANESTHESIOLOGIST, RASHEED S 788.1 Dysuria 10/25/2010 JOSIAH PEDIATRIC ANESTHESIOLOGIST, RASHEED S 799.02 Hypoxemia 10/25/2010 YUAN DO, JACK K 780.57 Unspecified Sleep Apnea 10/25/2010 YUAN DO, JACK K 780.79 Fatigue 10/25/2010 YUAN DO, JACK K 787.91 Diarrhea 10/25/2010 YUAN DO, JACK K 788.1 Dysuria 10/25/2010 YUAN DO, JACK K 799.02 Hypoxemia 10/25/2010 JOSIAH PEDIATRIC ANESTHESIOLOGIST, RASHEED S 780.57 Unspecified Sleep Apnea 10/25/2010 JOSIAH PEDIATRIC ANESTHESIOLOGIST, RASHEED S 780.79 Fatigue 10/25/2010 JOSIAH PEDIATRIC ANESTHESIOLOGIST, RASHEED S 787.91 Diarrhea 10/25/2010 JOSIAH PEDIATRIC ANESTHESIOLOGIST, RASHEED S 788.1 Dysuria 10/25/2010 JOSIAH PEDIATRIC ANESTHESIOLOGIST, RASHEED S 799.02 Hypoxemia 10/25/2010 JOSIAH PEDIATRIC ANESTHESIOLOGIST, RASHEED S 780.57 Unspecified Sleep Apnea 10/25/2010 JOSIAH PEDIATRIC ANESTHESIOLOGIST, RASHEED S 780.79 Fatigue 10/25/2010 JOSIAH PEDIATRIC ANESTHESIOLOGIST, RASHEED S 787.91 Diarrhea 10/25/2010 JOSIAH PEDIATRIC ANESTHESIOLOGIST, RASHEED S 788.1 Dysuria 10/25/2010 JOSIAH PEDIATRIC ANESTHESIOLOGIST, RASHEED S 799.02 Hypoxemia 10/25/2010 ARIAS GRAJEDA MD 780.57 Unspecified Sleep Apnea 10/25/2010 NICCI ESCOTO, ARIAS 780.79 Fatigue 10/25/2010 NICCI ESCOTO, ARIAS 787.91 Diarrhea 10/25/2010 NICCI ESCOTO, ARIAS 788.1 Dysuria 10/25/2010 ARIAS GRAJEDA MD 799.02 Hypoxemia 10/25/2010 JOSIAH PEDIATRIC ANESTHESIOLOGIST, RASHEED S 780.57 Unspecified Sleep Apnea 10/25/2010 JOSIAH PEDIATRIC ANESTHESIOLOGIST, RASHEED S 780.79 Fatigue 10/25/2010 JOSIAH PEDIATRIC ANESTHESIOLOGIST, RASHEED S 787.91 Diarrhea 10/25/2010 JOSIAH PEDIATRIC ANESTHESIOLOGIST, RASHEED S 788.1 Dysuria 10/25/2010 JOSIAH PEDIATRIC ANESTHESIOLOGIST, RASHEED S 799.02 Hypoxemia 10/25/2010 JOSIAH PEDIATRIC ANESTHESIOLOGIST, RASHEED S 780.57 Unspecified Sleep Apnea 10/25/2010 JOSIAH PEDIATRIC ANESTHESIOLOGIST, RASHEED S 780.79 Fatigue 10/25/2010 JOSIAH PEDIATRIC ANESTHESIOLOGIST, RASHEED S 787.91 Diarrhea 10/25/2010 JOSIAH PEDIATRIC ANESTHESIOLOGIST, RASHEED S 788.1 Dysuria 10/25/2010 JOSIAH PEDIATRIC ANESTHESIOLOGIST, RASHEED S 799.02 Hypoxemia 10/25/2010 YUAN DO, JACK K 780.57 Unspecified Sleep Apnea 10/25/2010 YUAN DO, JACK K 780.79 Fatigue 10/25/2010 YUAN DO, JACK K 787.91 Diarrhea 10/25/2010 YUAN DO, JACK K 788.1 Dysuria 10/25/2010 YUAN DO, JACK K 799.02 Hypoxemia 10/25/2010 JOSIAH PEDIATRIC ANESTHESIOLOGIST, RASHEED S 780.57 Unspecified Sleep Apnea 10/25/2010 JOSIAH PEDIATRIC ANESTHESIOLOGIST, RASHEED S 780.79 Fatigue 10/25/2010 JOSIAH PEDIATRIC ANESTHESIOLOGIST, RASHEED S 787.91 Diarrhea 10/25/2010 JOSIAH PEDIATRIC ANESTHESIOLOGIST, RASHEED S 788.1 Dysuria 10/25/2010 JOSIAH PEDIATRIC ANESTHESIOLOGIST, RASHEED S 799.02 Hypoxemia 10/25/2010 JOSIAH PEDIATRIC ANESTHESIOLOGIST, RASHEED S 780.57 Unspecified Sleep Apnea 10/25/2010 JOSIAH PEDIATRIC ANESTHESIOLOGIST, RASHEED S 780.79 Fatigue 10/25/2010 JOSIAH PEDIATRIC ANESTHESIOLOGIST, RASHEED S 787.91 Diarrhea 10/25/2010 JOSIAH PEDIATRIC ANESTHESIOLOGIST, RASHEED S 788.1 Dysuria 10/25/2010 JOSIAH PEDIATRIC ANESTHESIOLOGIST, RASHEED S 799.02 Hypoxemia 10/25/2010 JOSIAH PEDIATRIC ANESTHESIOLOGIST, RASHEED S 780.57 Unspecified Sleep Apnea 10/25/2010 JOSIAH PEDIATRIC ANESTHESIOLOGIST, RASHEED S 780.79 Fatigue 10/25/2010 JOSIAH PEDIATRIC ANESTHESIOLOGIST, RASHEED S 787.91 Diarrhea 10/25/2010 JOSIAH PEDIATRIC ANESTHESIOLOGIST, RASHEED S 788.1 Dysuria 10/25/2010 JOSIAH PEDIATRIC ANESTHESIOLOGIST, RASHEED S 799.02 Hypoxemia 12/20/2010 JOSIAH PEDIATRIC ANESTHESIOLOGIST, RASHEED S 719.46 joint pain, localized in the knee 12/20/2010 719.46 joint pain, localized in the knee 12/20/2010 JOSIAH PEDIATRIC ANESTHESIOLOGIST, RASHEED S 719.46 joint pain, localized in the knee 12/20/2010 719.46 joint pain, localized in the knee 12/20/2010 719.46 joint pain, localized in the knee 12/20/2010 JOSIAH PEDIATRIC ANESTHESIOLOGIST, RASHEED S 719.46 joint pain, localized in the knee 12/20/2010 JOSIAH PEDIATRIC ANESTHESIOLOGIST, RASHEED S 719.46 joint pain, localized in the knee 12/20/2010 JOSIAH PEDIATRIC ANESTHESIOLOGIST, RASHEED S 719.46 joint pain, localized in the knee 12/20/2010 JOSIAH PEDIATRIC ANESTHESIOLOGIST, RASHEED S 719.46 joint pain, localized in the knee 12/20/2010 JOSIAH PEDIATRIC ANESTHESIOLOGIST, RASHEED S 719.46 joint pain, localized in the knee 12/20/2010 BYRON ESCOTO, AMINA Marr 719.46 joint pain, localized in the knee 12/20/2010 JACK YUAN DO 719.46 joint pain, localized in the knee 12/20/2010 JOSIAH PEDIATRIC ANESTHESIOLOGIST, RASHEED S 719.46 joint pain, localized in the knee 12/20/2010 JOSIAH PEDIATRIC ANESTHESIOLOGIST, RASHEED S 719.46 joint pain, localized in the knee 12/20/2010 LILLYL PEDIATRIC ANESTHESIOLOGIST, NANCY L 719.46 joint pain, localized in the knee 12/20/2010 JOSIAH PEDIATRIC ANESTHESIOLOGIST, RASHEED S 719.46 joint pain, localized in the knee 12/20/2010 JOSIAH PEDIATRIC ANESTHESIOLOGIST, RASHEED S 719.46 joint pain, localized in the knee 12/20/2010 YUAN DO JACK K 719.46 joint pain, localized in the knee 12/20/2010 JOSIAH PEDIATRIC ANESTHESIOLOGIST, RASHEED S 719.46 joint pain, localized in the knee 12/20/2010 JOSIAH PEDIATRIC ANESTHESIOLOGIST, RASHEED S 719.46 joint pain, localized in the knee 12/20/2010 ARIAS GRAJEDA MD 719.46 joint pain, localized in the knee 12/20/2010 JOSIAH PEDIATRIC ANESTHESIOLOGIST, RASHEED S 719.46 joint pain, localized in the knee 12/20/2010 JOSIAH PEDIATRIC ANESTHESIOLOGIST, RASHEED S 719.46 joint pain, localized in the knee 12/20/2010 YUAN DO JACK K 719.46 joint pain, localized in the knee 12/20/2010 JOSIAH PEDIATRIC ANESTHESIOLOGIST, RASHEED S 719.46 joint pain, localized in the knee 12/20/2010 JOSIAH PEDIATRIC ANESTHESIOLOGIST, RASHEED S 719.46 joint pain, localized in the knee 12/20/2010 JOSIAH PEDIATRIC ANESTHESIOLOGIST, RASHEED S 719.46 joint pain, localized in the knee 03/28/2011 JOSIAH LERNER, RASHEED S 401.1 ESSENTIAL HYPERTENSION BENIGN 03/28/2011 JOSIAH PEDIATRIC ANESTHESIOLOGIST, RASHEED S 724.2 LUMBAGO 03/28/2011 JOSIAH LERNER, RASHEED S V04.81 Flu Dx (3 Yrs And Above, Im) 03/28/2011 401.1 ESSENTIAL HYPERTENSION BENIGN 03/28/2011 724.2 LUMBAGO 03/28/2011 V04.81 Flu Dx (3 Yrs And Above, Im) 03/28/2011 JOSIAH LERNER RASHEED S 401.1 ESSENTIAL HYPERTENSION BENIGN 03/28/2011 JOSIAH COVARRUBIASN, RASHEED S 724.2 LUMBAGO 03/28/2011 JOSIAH PEDIATRIC ANESTHESIOLOGIST, RASHEED S V04.81 Flu Dx (3 Yrs And Above, Im) 03/28/2011 401.1 ESSENTIAL HYPERTENSION BENIGN 03/28/2011 724.2 LUMBAGO 03/28/2011 V04.81 Flu Dx (3 Yrs And Above, Im) 03/28/2011 401.1 ESSENTIAL HYPERTENSION BENIGN 03/28/2011 724.2 LUMBAGO 03/28/2011 V04.81 Flu Dx (3 Yrs And Above, Im) 03/28/2011 JOSIAH PEDIATRIC ANESTHESIOLOGISTNAKIARASHEED S 401.1 ESSENTIAL HYPERTENSION BENIGN 03/28/2011 JOSIAH PEDIATRIC ANESTHESIOLOGIST, RASHEED S 724.2 LUMBAGO 03/28/2011 JOSIAH PEDIATRIC ANESTHESIOLOGIST, RASHEED S V04.81 Flu Dx (3 Yrs And Above, Im) 03/28/2011 JOSIAH PEDIATRIC ANESTHESIOLOGIST, RASHEED S 401.1 ESSENTIAL HYPERTENSION BENIGN 03/28/2011 JOSIAH LERNER, RASHEED S 724.2 LUMBAGO 03/28/2011 JOSIAH PEDIATRIC ANESTHESIOLOGIST, RASHEED S V04.81 Flu Dx (3 Yrs And Above, Im) 03/28/2011 JOSIAH COVARRUBIASNNAKIARASHEED S 401.1 ESSENTIAL HYPERTENSION BENIGN 03/28/2011 JOSIAH PEDIATRIC ANESTHESIOLOGIST, RASHEED S 724.2 LUMBAGO 03/28/2011 JOSIAH PEDIATRIC ANESTHESIOLOGIST, RASHEED S V04.81 Flu Dx (3 Yrs And Above, Im) 03/28/2011 NAKIA RAHMAN APRNNDA S 401.1 ESSENTIAL HYPERTENSION BENIGN 03/28/2011 JOSIAH PEDIATRIC ANESTHESIOLOGIST, RASHEED S 724.2 LUMBAGO 03/28/2011 JOSIAH PEDIATRIC ANESTHESIOLOGIST, RASHEED S V04.81 Flu Dx (3 Yrs And Above, Im) 03/28/2011 JOSIAH PEDIATRIC ANESTHESIOLOGIST RASHEED S 401.1 ESSENTIAL HYPERTENSION BENIGN 03/28/2011 JOSIAH PEDIATRIC ANESTHESIOLOGIST, RASHEED S 724.2 LUMBAGO 03/28/2011 JOSIAH PEDIATRIC ANESTHESIOLOGIST, RASHEED S V04.81 Flu Dx (3 Yrs And Above, Im) 03/28/2011 AMINA MATTHEWS MD 401.1 ESSENTIAL HYPERTENSION BENIGN 03/28/2011 AMINA MATTHEWS MD 724.2 LUMBAGO 03/28/2011 AMINA MATTHEWS MD V04.81 Flu Dx (3 Yrs And Above, Im) 03/28/2011 YUNA DO, JACK K 401.1 ESSENTIAL HYPERTENSION BENIGN 03/28/2011 YUAN DO, JACK K 724.2 LUMBAGO 03/28/2011 YUAN DO, JACK K V04.81 Flu Dx (3 Yrs And Above, Im) 03/28/2011 OJSIAH PEDIATRIC ANESTHESIOLOGIST, RASHEED S 401.1 ESSENTIAL HYPERTENSION BENIGN 03/28/2011 JOSIAH PEDIATRIC ANESTHESIOLOGIST, RASHEED S 724.2 LUMBAGO 03/28/2011 JOSIAH PEDIATRIC ANESTHESIOLOGIST, RASHEED S V04.81 Flu Dx (3 Yrs And Above, Im) 03/28/2011 JOSIAH PEDIATRIC ANESTHESIOLOGIST, RASHEED S 401.1 ESSENTIAL HYPERTENSION BENIGN 03/28/2011 JOSIAH PEDIATRIC ANESTHESIOLOGIST, RASHEED S 724.2 LUMBAGO 03/28/2011 JOSIAH PEDIATRIC ANESTHESIOLOGIST, RASHEED S V04.81 Flu Dx (3 Yrs And Above, Im) 03/28/2011 MADL PEDIATRIC ANESTHESIOLOGIST, NANCY L 401.1 ESSENTIAL HYPERTENSION BENIGN 03/28/2011 MADL PEDIATRIC ANESTHESIOLOGIST, NANCY L 724.2 LUMBAGO 03/28/2011 MADL PEDIATRIC ANESTHESIOLOGIST, NANCY L V04.81 Flu Dx (3 Yrs And Above, Im) 03/28/2011 JOSIAH PEDIATRIC ANESTHESIOLOGIST, RASHEED S 401.1 ESSENTIAL HYPERTENSION BENIGN 03/28/2011 JOSIAH PEDIATRIC ANESTHESIOLOGIST, RASHEED S 724.2 LUMBAGO 03/28/2011 JOSIAH PEDIATRIC ANESTHESIOLOGIST, RASHEED S V04.81 Flu Dx (3 Yrs And Above, Im) 03/28/2011 JOSIAH PEDIATRIC ANESTHESIOLOGIST, RASHEED S 401.1 ESSENTIAL HYPERTENSION BENIGN 03/28/2011 JOSIAH PEDIATRIC ANESTHESIOLOGIST, RASHEED S 724.2 LUMBAGO 03/28/2011 JOSIAH PEDIATRIC ANESTHESIOLOGIST, RASHEED S V04.81 Flu Dx (3 Yrs And Above, Im) 03/28/2011 YUAN DO, JACK K 401.1 ESSENTIAL HYPERTENSION BENIGN 03/28/2011 YUAN DO, JACK K 724.2 LUMBAGO 03/28/2011 YUAN DO, JACK K V04.81 Flu Dx (3 Yrs And Above, Im) 03/28/2011 JOSIAH LERNER RASHEED S 401.1 ESSENTIAL HYPERTENSION BENIGN 03/28/2011 JOSIAH PEDIATRIC ANESTHESIOLOGIST, RASHEED S 724.2 LUMBAGO 03/28/2011 JOSIAH PEDIATRIC ANESTHESIOLOGIST, RASHEED S V04.81 Flu Dx (3 Yrs And Above, Im) 03/28/2011 JOSIAH COVARRUBIASN, RASHEED S 401.1 ESSENTIAL HYPERTENSION BENIGN 03/28/2011 JOSIAH PEDIATRIC ANESTHESIOLOGIST, RASHEED S 724.2 LUMBAGO 03/28/2011 JOSIAH PEDIATRIC ANESTHESIOLOGIST, RASHEED S V04.81 Flu Dx (3 Yrs [...] S 401.1 ESSENTIAL HYPERTENSION BENIGN 03/28/2011 JOSIAH PEDIATRIC ANESTHESIOLOGIST, RASHEED S 724.2 LUMBAGO 03/28/2011 JOSIAH PEDIATRIC ANESTHESIOLOGIST, RASHEED S V04.81 Flu Dx (3 Yrs And Above, Im) 03/28/2011 JOSIAH PEDIATRIC ANESTHESIOLOGIST, RASHEED S 401.1 ESSENTIAL HYPERTENSION BENIGN 03/28/2011 JOSIAH PEDIATRIC ANESTHESIOLOGIST, RASHEED S 724.2 LUMBAGO 03/28/2011 JOSIAH PEDIATRIC ANESTHESIOLOGIST, RASHEED S V04.81 Flu Dx (3 Yrs And Above, Im) 07/20/2011 JOSIAH PEDIATRIC ANESTHESIOLOGIST, RASHEED S 786.05 SHORTNESS OF BREATH 07/20/2011 786.05 SHORTNESS OF BREATH 07/20/2011 JOSIAH COVARRUBIASN, RASHEED S 786.05 SHORTNESS OF BREATH 07/20/2011 786.05 SHORTNESS OF BREATH 07/20/2011 786.05 SHORTNESS OF BREATH 07/20/2011 JOSIAH COVARRUBIASN, RASHEED S 786.05 SHORTNESS OF BREATH 07/20/2011 JOSIAH PEDIATRIC ANESTHESIOLOGIST, RASHEED S 786.05 SHORTNESS OF BREATH 07/20/2011 JOSIAH LERNER, RASHEED S 786.05 SHORTNESS OF BREATH 07/20/2011 JOSIAH PEDIATRIC ANESTHESIOLOGIST, RASHEED S 786.05 SHORTNESS OF BREATH 07/20/2011 JOSIAH PEDIATRIC ANESTHESIOLOGIST, RASHEED S 786.05 SHORTNESS OF BREATH 07/20/2011 BYRON ESCOTO, AMINA Marr 786.05 SHORTNESS OF BREATH 07/20/2011 JACK YUAN DO 786.05 SHORTNESS OF BREATH 07/20/2011 JOSIAH COVARRUBIASN, RASHEED S 786.05 SHORTNESS OF BREATH 07/20/2011 JOSIAH LERNER, RASHEED S 786.05 SHORTNESS OF BREATH 07/20/2011 NANCY ANAYA APRN 786.05 SHORTNESS OF BREATH 07/20/2011 JOSIAH PEDIATRIC ANESTHESIOLOGIST, RASHEED S 786.05 SHORTNESS OF BREATH 07/20/2011 [...] S 041.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, METHICILLIN RESISTANT 08/24/2011 JOSIAH PEDIATRIC ANESTHESIOLOGIST, RASHEED S 780.4 dizziness 08/24/2011 JOSIAH PEDIATRIC ANESTHESIOLOGIST, RASHEED S 788.33 URGE AND STRESS INCONTINENCE 08/24/2011 041.12 MRSA, METHICILLIN RESISTANT 08/24/2011 780.4 dizziness 08/24/2011 788.33 URGE AND STRESS INCONTINENCE 08/24/2011 041.12 MRSA, METHICILLIN RESISTANT 08/24/2011 780.4 dizziness 08/24/2011 788.33 URGE AND STRESS INCONTINENCE 08/24/2011 JOSIAH PEDIATRIC ANESTHESIOLOGIST, RASHEED S 041.12 MRSA, METHICILLIN RESISTANT 08/24/2011 JOSIAH PEDIATRIC ANESTHESIOLOGIST, RASHEED S 780.4 dizziness 08/24/2011 JOSIAH PEDIATRIC ANESTHESIOLOGIST, RASHEED S 788.33 URGE AND STRESS INCONTINENCE 08/24/2011 JOSIAH PEDIATRIC ANESTHESIOLOGIST, RASHEED S 041.12 MRSA, METHICILLIN RESISTANT 08/24/2011 JOSIAH PEDIATRIC ANESTHESIOLOGIST, RASHEED S 780.4 dizziness 08/24/2011 JOSIAH PEDIATRIC ANESTHESIOLOGIST, RASHEED S 788.33 URGE AND STRESS INCONTINENCE 08/24/2011 JOSIAH PEDIATRIC ANESTHESIOLOGIST, RASHEED S 041.12 MRSA, METHICILLIN RESISTANT 08/24/2011 JOSIAH PEDIATRIC ANESTHESIOLOGIST, RASHEED S 780.4 dizziness 08/24/2011 JOSIAH PEDIATRIC ANESTHESIOLOGIST, RASHEED S 788.33 URGE AND STRESS INCONTINENCE 08/24/2011 JOSIAH PEDIATRIC ANESTHESIOLOGIST, RASHEED S 041.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, METHICILLIN RESISTANT 08/24/2011 JOSIAH PEDIATRIC ANESTHESIOLOGIST, RASHEED S 780.4 dizziness 08/24/2011 JOSIAH PEDIATRIC ANESTHESIOLOGIST, RASHEED S 788.33 URGE AND STRESS INCONTINENCE 08/24/2011 JOSIAH PEDIATRIC ANESTHESIOLOGIST, RASHEED S 041.12 MRSA, METHICILLIN RESISTANT 08/24/2011 JOSIAH PEDIATRIC ANESTHESIOLOGIST, RASHEED S 780.4 dizziness 08/24/2011 JOSIAH PEDIATRIC ANESTHESIOLOGIST, RASHEED S 788.33 URGE AND STRESS INCONTINENCE 08/24/2011 AMINA MATTHEWS MD 041.12 MRSA, METHICILLIN RESISTANT 08/24/2011 AMINA MATTHEWS MD 780.4 dizziness 08/24/2011 AMINA MATTHEWS MD 788.33 URGE AND STRESS INCONTINENCE 08/24/2011 YUAN DO, JACK K 041.12 MRSA, METHICILLIN RESISTANT 08/24/2011 YUAN DO, JACK K 780.4 dizziness 08/24/2011 YUAN DO, JACK K 788.33 URGE AND STRESS INCONTINENCE 08/24/2011 JOSIAH PEDIATRIC ANESTHESIOLOGIST, RASHEED S 041.12 MRSA, METHICILLIN RESISTANT 08/24/2011 JOSIAH PEDIATRIC ANESTHESIOLOGIST, RSAHEED S 780.4 DIZZINESS 08/24/2011 JOSIAH PEDIATRIC ANESTHESIOLOGIST, RASHEED S 788.33 URGE AND STRESS INCONTINENCE 08/24/2011 JOSIAH PEDIATRIC ANESTHESIOLOGIST, RASHEED S 041.12 MRSA, METHICILLIN RESISTANT 08/24/2011 JOSIAH PEDIATRIC ANESTHESIOLOGIST, RASHEED S 780.4 DIZZINESS 08/24/2011 JOSIAH PEDIATRIC ANESTHESIOLOGIST, RASHEED S 788.33 URGE AND STRESS INCONTINENCE 08/24/2011 MADL PEDIATRIC ANESTHESIOLOGIST, NANCY L 041.12 MRSA, METHICILLIN RESISTANT 08/24/2011 MADL PEDIATRIC ANESTHESIOLOGIST, NANCY L 780.4 DIZZINESS 08/24/2011 MADL PEDIATRIC ANESTHESIOLOGIST, NANCY L 788.33 URGE AND STRESS INCONTINENCE 08/24/2011 JOSIAH PEDIATRIC ANESTHESIOLOGIST, RASHEED S 041.12 MRSA, METHICILLIN RESISTANT 08/24/2011 JOSIAH PEDIATRIC ANESTHESIOLOGIST, RASHEED S 780.4 DIZZINESS 08/24/2011 JOSIAH PEDIATRIC ANESTHESIOLOGIST, RASHEED S 788.33 URGE AND STRESS INCONTINENCE 08/24/2011 JOSIAH PEDIATRIC ANESTHESIOLOGIST, RASHEED S 041.12 MRSA, METHICILLIN RESISTANT 08/24/2011 JOSIAH PEDIATRIC ANESTHESIOLOGIST, RASHEED S 780.4 DIZZINESS 08/24/2011 JOSIAH PEDIATRIC ANESTHESIOLOGIST, RASHEED S 788.33 URGE AND STRESS INCONTINENCE 08/24/2011 YUAN DO, JACK K 041.12 MRSA, METHICILLIN RESISTANT 08/24/2011 YUAN DO, JACK K 780.4 DIZZINESS 08/24/2011 YUAN DO, JACK K 788.33 URGE AND STRESS INCONTINENCE 08/24/2011 JOSIAH PEDIATRIC ANESTHESIOLOGIST, RASHEED S 041.12 MRSA, METHICILLIN RESISTANT 08/24/2011 JOSIAH PEDIATRIC ANESTHESIOLOGIST, RASHEED S 780.4 DIZZINESS 08/24/2011 JOSIAH PEDIATRIC ANESTHESIOLOGIST, RASHEED S 788.33 URGE AND STRESS INCONTINENCE 08/24/2011 JOSIAH PEDIATRIC ANESTHESIOLOGIST, RASHEED S 041.12 MRSA, METHICILLIN RESISTANT 08/24/2011 JOSIAH PEDIATRIC ANESTHESIOLOGIST, RASHEED S 780.4 DIZZINESS 08/24/2011 JOSIAH LERNER, RASHEED S 788.33 URGE AND STRESS INCONTINENCE 08/24/2011 ARIAS GRAJEDA MD 041.12 MRSA, METHICILLIN RESISTANT 08/24/2011 NICCI ESCOTO, ARIAS 780.4 DIZZINESS 08/24/2011 ARIAS GRAJEDA MD 788.33 URGE AND STRESS INCONTINENCE 08/24/2011 JOSIAH LERNER RASHEED S 041.12 MRSA, METHICILLIN RESISTANT 08/24/2011 JOSIAH PEDIATRIC ANESTHESIOLOGIST, RASHEED S 780.4 DIZZINESS 08/24/2011 JOSIAH PEDIATRIC ANESTHESIOLOGIST, RASHEED S 788.33 URGE AND STRESS INCONTINENCE 08/24/2011 JOSIAH PEDIATRIC ANESTHESIOLOGIST, RASHEED S 041.12 MRSA, METHICILLIN RESISTANT 08/24/2011 JOSIAH PEDIATRIC ANESTHESIOLOGIST, RASHEED S 780.4 DIZZINESS 08/24/2011 JOSIAH LERNER, RASHEED S 788.33 URGE AND STRESS INCONTINENCE 08/24/2011 YUAN DO, JACK K 041.12 MRSA, METHICILLIN RESISTANT 08/24/2011 YUAN DO, JACK K 780.4 DIZZINESS 08/24/2011 YUAN DO, JACK K 788.33 URGE AND STRESS INCONTINENCE 08/24/2011 JOSIAH PEDIATRIC ANESTHESIOLOGIST, RASHEED S 041.12 MRSA, METHICILLIN RESISTANT 08/24/2011 JOSIAH PEDIATRIC ANESTHESIOLOGIST, RASHEED S 780.4 DIZZINESS 08/24/2011 JOSIAH PEDIATRIC ANESTHESIOLOGIST, RASHEED S 788.33 URGE AND STRESS INCONTINENCE 08/24/2011 JOSIAH PEDIATRIC ANESTHESIOLOGIST, RASHEED S 041.12 MRSA, METHICILLIN RESISTANT 08/24/2011 JOSIAH PEDIATRIC ANESTHESIOLOGIST, RASHEED S 780.4 DIZZINESS 08/24/2011 JOSIAH PEDIATRIC ANESTHESIOLOGIST, RASHEED S 788.33 URGE AND STRESS INCONTINENCE 08/24/2011 JOSIAH PEDIATRIC ANESTHESIOLOGIST, RASHEED S 041.12 MRSA, METHICILLIN RESISTANT 08/24/2011 JOSIAH PEDIATRIC ANESTHESIOLOGIST, RASHEED S 780.4 DIZZINESS 08/24/2011 JOSIAH PEDIATRIC ANESTHESIOLOGIST, RASHEED S 788.33 URGE AND STRESS INCONTINENCE [...] JACK K 466.0 BRONCHITIS, ACUTE 04/02/2012 JOSIAH PEDIATRIC ANESTHESIOLOGIST, RASHEED S 079.99 VIRAL SYNDROME 04/02/2012 JOSIAH PEDIATRIC ANESTHESIOLOGIST, RASHEED S 466.0 BRONCHITIS, ACUTE 04/02/2012 JOSIAH PEDIATRIC ANESTHESIOLOGIST, RASHEED S 079.99 VIRAL SYNDROME 04/02/2012 JOSIAH PEDIATRIC ANESTHESIOLOGIST, RASHEED S 466.0 BRONCHITIS, ACUTE 04/02/2012 MADL PEDIATRIC ANESTHESIOLOGIST, NANCY L 079.99 VIRAL SYNDROME 04/02/2012 MADL PEDIATRIC ANESTHESIOLOGIST, NANCY L 466.0 BRONCHITIS, ACUTE 04/02/2012 JOSIAH PEDIATRIC ANESTHESIOLOGIST, RASHEED S 079.99 VIRAL SYNDROME 04/02/2012 JOSIAH PEDIATRIC ANESTHESIOLOGIST, RASHEED S 466.0 BRONCHITIS, ACUTE 04/02/2012 JOSIAH PEDIATRIC ANESTHESIOLOGIST, RASHEED S 079.99 VIRAL SYNDROME 04/02/2012 JOSIAH PEDIATRIC ANESTHESIOLOGIST, RASHEED S 466.0 BRONCHITIS, ACUTE 04/02/2012 YUAN DO, JACK K 079.99 VIRAL SYNDROME 04/02/2012 YUAN DO, JACK K 466.0 BRONCHITIS, ACUTE 04/02/2012 JOSIAH PEDIATRIC ANESTHESIOLOGIST, RASHEED S 079.99 VIRAL SYNDROME 04/02/2012 JOSIAH PEDIATRIC ANESTHESIOLOGIST, RASHEED S 466.0 BRONCHITIS, ACUTE 04/02/2012 JOSIAH PEDIATRIC ANESTHESIOLOGIST, RASHEED S 079.99 VIRAL SYNDROME 04/02/2012 JOSIAH PEDIATRIC ANESTHESIOLOGIST, RASHEED S 466.0 BRONCHITIS, ACUTE 04/02/2012 NICCI ESCOTO, ARIAS 079.99 VIRAL SYNDROME 04/02/2012 ARIAS GRAJEDA MD 466.0 BRONCHITIS, ACUTE 04/02/2012 JOSIAH PEDIATRIC ANESTHESIOLOGIST, RASHEED S 079.99 VIRAL SYNDROME 04/02/2012 JOSIAH PEDIATRIC ANESTHESIOLOGIST, RASHEED S 466.0 BRONCHITIS, ACUTE 04/02/2012 JOSIAH PEDIATRIC ANESTHESIOLOGIST, RASHEED S 079.99 VIRAL SYNDROME 04/02/2012 JOSIAH PEDIATRIC ANESTHESIOLOGIST, RASHEED S 466.0 BRONCHITIS, ACUTE 04/02/2012 YUAN DOINDERA K 079.99 VIRAL SYNDROME 04/02/2012 YUAN DOINDERA K 466.0 BRONCHITIS, ACUTE 04/02/2012 JOSIAH PEDIATRIC ANESTHESIOLOGIST, RASHEED S 079.99 VIRAL SYNDROME 04/02/2012 JOSIAH PEDIATRIC ANESTHESIOLOGIST, RASHEED S 466.0 BRONCHITIS, ACUTE 04/02/2012 JOSIAH PEDIATRIC ANESTHESIOLOGIST, RASHEED S 079.99 VIRAL SYNDROME 04/02/2012 JOSIAH PEDIATRIC ANESTHESIOLOGIST, RASHEED S 466.0 BRONCHITIS, ACUTE 04/02/2012 JOSIAH PEDIATRIC ANESTHESIOLOGIST, RASHEED S 079.99 VIRAL SYNDROME 04/02/2012 JOSIAH PEDIATRIC ANESTHESIOLOGIST, RASHEED S 466.0 BRONCHITIS, ACUTE 01/07/2013 V07.4 [...] V07.4 HORMONE REPLACEMENT THERAPY (POSTMENOPAUSAL) 01/07/2013 JOSIAH PEDIATRIC ANESTHESIOLOGIST, RASHEED S V07.4 HORMONE REPLACEMENT THERAPY (POSTMENOPAUSAL) 01/07/2013 JOSIAH LERNER, RASHEED S V07.4 HORMONE REPLACEMENT THERAPY (POSTMENOPAUSAL) 01/07/2013 ARIAS GRAJEDA MD V07.4 HORMONE REPLACEMENT THERAPY (POSTMENOPAUSAL) 01/07/2013 JOSIAH PEDIATRIC ANESTHESIOLOGIST, RASHEED S V07.4 HORMONE REPLACEMENT THERAPY (POSTMENOPAUSAL) 01/07/2013 JOSIAH LERNER, RASHEED S V07.4 HORMONE REPLACEMENT THERAPY (POSTMENOPAUSAL) 01/07/2013 JACK YUAN DO V07.4 HORMONE REPLACEMENT THERAPY (POSTMENOPAUSAL) 01/07/2013 JOSIAH PEDIATRIC ANESTHESIOLOGIST, RASHEED S V07.4 HORMONE REPLACEMENT THERAPY (POSTMENOPAUSAL) 01/07/2013 JOSIAH LERNER, RASHEED S V07.4 HORMONE REPLACEMENT THERAPY (POSTMENOPAUSAL) 01/07/2013 JOSIAH PEDIATRIC ANESTHESIOLOGIST, RASHEED S V07.4 HORMONE REPLACEMENT THERAPY (POSTMENOPAUSAL) 06/02/2013 JOSIAH LERNER, RASHEED S 696.1 PSORIASIS 06/02/2013 JOSIAH LERNER, RASHEED S V73.81 HPV SCREENING 06/02/2013 JOSIAH PEDIATRIC ANESTHESIOLOGIST, RASHEED S V76.10 BREAST CANCER SCREENING 06/02/2013 JOSIAH PEDIATRIC ANESTHESIOLOGIST, RASHEED S V76.2 CERVICAL CANCER SCREENING (PAP SMEAR) 06/02/2013 JOSIAH PEDIATRIC ANESTHESIOLOGIST, RASHEED S 696.1 PSORIASIS 06/02/2013 JOSIAH PEDIATRIC ANESTHESIOLOGIST, RASHEED S V73.81 HPV SCREENING 06/02/2013 JOSIAH LERNER, RASHEED S V76.10 BREAST CANCER SCREENING 06/02/2013 JOSIAH PEDIATRIC ANESTHESIOLOGIST, RASHEED S V76.2 CERVICAL CANCER SCREENING (PAP SMEAR) 06/02/2013 JOSIAH PEDIATRIC ANESTHESIOLOGIST, RASHEED S 696.1 PSORIASIS 06/02/2013 JOSIAH LERNER, RASHEED S V73.81 HPV SCREENING 06/02/2013 JOSIAH PEDIATRIC ANESTHESIOLOGIST, RASHEED S V76.10 BREAST CANCER SCREENING 06/02/2013 [...] S V76.10 BREAST CANCER SCREENING 06/02/2013 JOSIAH PEDIATRIC ANESTHESIOLOGIST, RASHEED S V76.2 CERVICAL CANCER SCREENING (PAP SMEAR) 06/02/2013 JOSIAH LERNER RASHEED S 696.1 PSORIASIS 06/02/2013 JOSIAH LERNER RASHEED S V73.81 HPV SCREENING 06/02/2013 JOSIAH LERNER RASHEED S V76.10 BREAST CANCER SCREENING 06/02/2013 JOSIAH LERNER RASHEED S V76.2 CERVICAL CANCER SCREENING (PAP SMEAR) 06/02/2013 JACLYN LERNER, NANCY L 696.1 PSORIASIS 06/02/2013 MADL PEDIATRIC ANESTHESIOLOGIST, NANCY L V73.81 HPV SCREENING 06/02/2013 MADL PEDIATRIC ANESTHESIOLOGIST, NANCY L V76.10 BREAST CANCER SCREENING 06/02/2013 MADL PEDIATRIC ANESTHESIOLOGIST, NANCY L V76.2 CERVICAL CANCER SCREENING (PAP SMEAR) 06/02/2013 JOSIAH LERNER RASHEED S 696.1 PSORIASIS 06/02/2013 JOSIAH LERNER RASHEED S V73.81 HPV SCREENING 06/02/2013 JOSIAH LERNER, RASHEED S V76.10 BREAST CANCER SCREENING 06/02/2013 JOSIAH LERNER RASHEED S V76.2 CERVICAL CANCER SCREENING (PAP SMEAR) 06/02/2013 JOSIHA LERNER RASHEED S 696.1 PSORIASIS 06/02/2013 JOSIAH LERNER, RASHEED S V73.81 HPV SCREENING 06/02/2013 JOSIAH LERNER RASHEED S V76.10 BREAST CANCER SCREENING 06/02/2013 JOSIAH PEDIATRIC ANESTHESIOLOGIST, RASHEED S V76.2 CERVICAL CANCER SCREENING (PAP SMEAR) 06/02/2013 YUAN DO, JACK K 696.1 PSORIASIS 06/02/2013 YUAN DO, JACK K V73.81 HPV SCREENING 06/02/2013 YUAN DO, JACK K V76.10 BREAST CANCER SCREENING 06/02/2013 YUAN DO, JACK K V76.2 CERVICAL CANCER SCREENING (PAP SMEAR) 06/02/2013 JOSIAH LERNER RASHEED S 696.1 PSORIASIS 06/02/2013 JOSIAH PEDIATRIC ANESTHESIOLOGIST, RASHEED S V73.81 HPV SCREENING 06/02/2013 JOSIAH LERNER ARSHEED S V76.10 BREAST CANCER SCREENING 06/02/2013 JOSIAH [...] CERVICAL CANCER SCREENING (PAP SMEAR) 06/02/2013 JOSIAH PEDIATRIC ANESTHESIOLOGIST, RASHEED S 696.1 PSORIASIS 06/02/2013 JOSIAH LERNER, RASHEED S V73.81 HPV SCREENING 06/02/2013 JOSIAH LERNER RASHEED S V76.10 BREAST CANCER SCREENING 06/02/2013 JOSIAH PEDIATRIC ANESTHESIOLOGIST, RASHEED S V76.2 CERVICAL CANCER SCREENING (PAP SMEAR) 06/02/2013 YUAN DO, JACK K 696.1 PSORIASIS 06/02/2013 YUAN DO, JACK K V73.81 HPV SCREENING 06/02/2013 YUAN DO, JACK K V76.10 BREAST CANCER SCREENING 06/02/2013 YUAN DO, JACK K V76.2 CERVICAL CANCER SCREENING (PAP SMEAR) 06/02/2013 JOSIAH LERNER RASHEED S 696.1 PSORIASIS 06/02/2013 JOSIAH PEDIATRIC ANESTHESIOLOGIST, RASHEED S V73.81 HPV SCREENING 06/02/2013 JOSIAH LERNER RASHEED S V76.10 BREAST CANCER SCREENING 06/02/2013 NAKIA RAHMAN APRNNDA S V76.2 CERVICAL CANCER SCREENING (PAP SMEAR) 06/02/2013 JOSIAH LERNER RASHEED S 696.1 PSORIASIS 06/02/2013 JOSIAH LERNER, RASHEED S V73.81 HPV SCREENING 06/02/2013 JOSIAH LERNER RASHEED S V76.10 BREAST CANCER SCREENING 06/02/2013 JOSIAH PEDIATRIC ANESTHESIOLOGIST, RASHEED S V76.2 CERVICAL CANCER SCREENING (PAP SMEAR) 06/02/2013 JOSIAH LERNER RASHEED S 696.1 PSORIASIS 06/02/2013 JOSIAH LERNER RASHEED S V73.81 HPV SCREENING 06/02/2013 JOSIAH LERNER RASHEED S V76.10 BREAST CANCER SCREENING 06/02/2013 JOSIAH PEDIATRIC ANESTHESIOLOGIST, RASHEED S V76.2 CERVICAL CANCER SCREENING (PAP SMEAR) 07/03/2013 NAKIA RAHMAN APRNNDA S 682.6 CELLULITIS AND ABSCESS OF LEG EXCEPT FOOT 07/03/2013 BYRON ESCOTO, AMINA Marr 682.6 CELLULITIS AND ABSCESS OF LEG EXCEPT FOOT 07/03/2013 YUAN INDER HDEZA K 682.6 CELLULITIS AND ABSCESS OF LEG EXCEPT FOOT 07/03/2013 JOSIAH PEDIATRIC ANESTHESIOLOGIST, RASHEED S 682.6 CELLULITIS AND ABSCESS OF LEG EXCEPT FOOT 07/03/2013 JOSIAH PEDIATRIC ANESTHESIOLOGIST, RASHEED S 682.6 CELLULITIS AND ABSCESS OF LEG EXCEPT FOOT 07/03/2013 MADL PEDIATRIC ANESTHESIOLOGISTNANCY Lockwood L 682.6 CELLULITIS AND ABSCESS OF LEG EXCEPT FOOT 07/03/2013 JOSIAH PEDIATRIC ANESTHESIOLOGIST, RASHEED S 682.6 CELLULITIS AND ABSCESS OF LEG EXCEPT FOOT 07/03/2013 JOSIAH PEDIATRIC ANESTHESIOLOGIST, RASHEED S 682.6 CELLULITIS AND ABSCESS OF LEG EXCEPT FOOT 07/03/2013 JACK YUAN DO K 682.6 CELLULITIS AND ABSCESS OF LEG EXCEPT FOOT 07/03/2013 JOSIAH PEDIATRIC ANESTHESIOLOGIST, RASHEED S 682.6 CELLULITIS AND ABSCESS OF LEG EXCEPT FOOT 07/03/2013 JOSIAH PEDIATRIC ANESTHESIOLOGIST, RASHEED S 682.6 CELLULITIS AND ABSCESS OF LEG EXCEPT FOOT 07/03/2013 NICCI ESCOTO, ARIAS 682.6 CELLULITIS AND ABSCESS OF LEG EXCEPT FOOT 07/03/2013 JOSIAH PEDIATRIC ANESTHESIOLOGIST, RASHEED S 682.6 CELLULITIS AND ABSCESS OF LEG EXCEPT FOOT 07/03/2013 JOSIAH PEDIATRIC ANESTHESIOLOGIST, RASHEED S 682.6 CELLULITIS AND ABSCESS OF LEG EXCEPT FOOT 07/03/2013 JACK YUAN DO K 682.6 CELLULITIS AND ABSCESS OF LEG EXCEPT FOOT 07/03/2013 JOSIAH PEDIATRIC ANESTHESIOLOGIST, RASHEED S 682.6 CELLULITIS AND ABSCESS OF LEG EXCEPT FOOT 07/03/2013 JOSIAH PEDIATRIC ANESTHESIOLOGIST, RASHEED S 682.6 CELLULITIS AND ABSCESS OF LEG EXCEPT FOOT 07/03/2013 JOSIAH PEDIATRIC ANESTHESIOLOGIST, RASHEED S 682.6 CELLULITIS AND ABSCESS OF LEG EXCEPT FOOT 08/15/2013 BYRON ESCOTO, AMINA Marr 461.9 SINUSITIS ACUTE 08/15/2013 JACK YUAN DO K 461.9 SINUSITIS ACUTE 08/15/2013 JOSIAH PEDIATRIC ANESTHESIOLOGIST, RASHEED S 461.9 SINUSITIS ACUTE 08/15/2013 JOSIAH PEDIATRIC ANESTHESIOLOGIST, RASHEED S 461.9 SINUSITIS ACUTE 08/15/2013 JACLYN PEDIATRIC ANESTHESIOLOGISTNANCY Lockwood L 461.9 SINUSITIS ACUTE 08/15/2013 JOSIAH PEDIATRIC ANESTHESIOLOGIST, RASHEED S 461.9 SINUSITIS ACUTE 08/15/2013 JOSIAH PEDIATRIC ANESTHESIOLOGIST, RASHEED S 461.9 SINUSITIS ACUTE 08/15/2013 INDER YUAN DOA K 461.9 SINUSITIS ACUTE 08/15/2013 JOSIAH PEDIATRIC ANESTHESIOLOGIST, RASHEED S 461.9 SINUSITIS ACUTE 08/15/2013 JOSIAH PEDIATRIC ANESTHESIOLOGIST, RASHEED S 461.9 SINUSITIS ACUTE 08/15/2013 ARIAS GRAJEDA MD 461.9 SINUSITIS ACUTE 08/15/2013 JOSIAH PEDIATRIC ANESTHESIOLOGIST, RASHEED S 461.9 SINUSITIS ACUTE 08/15/2013 JOSIAH PEDIATRIC ANESTHESIOLOGIST, RASHEED S 461.9 SINUSITIS ACUTE 08/15/2013 JACK YUAN DO K 461.9 SINUSITIS ACUTE 08/15/2013 JOSIAH PEDIATRIC ANESTHESIOLOGIST, RASHEED S 461.9 SINUSITIS ACUTE 08/15/2013 JOSIAH PEDIATRIC ANESTHESIOLOGIST, RASHEED S 461.9 SINUSITIS ACUTE 08/15/2013 JOSIAH PEDIATRIC ANESTHESIOLOGIST, RASHEED S 461.9 SINUSITIS ACUTE 09/04/2013 INDER YUAN DOA K 733.92 CHONDROMALACIA 09/04/2013 JOSIAH PEDIATRIC ANESTHESIOLOGIST, RASHEED S 733.92 CHONDROMALACIA 09/04/2013 JOSIAH PEDIATRIC ANESTHESIOLOGIST, RASHEED S 733.92 CHONDROMALACIA 09/04/2013 JACLYN LERNER, NANCY L 733.92 CHONDROMALACIA 09/04/2013 JOSIAH PEDIATRIC ANESTHESIOLOGIST, RASHEED S 733.92 CHONDROMALACIA 09/04/2013 JOSIAH PEDIATRIC ANESTHESIOLOGIST, RASHEED S 733.92 CHONDROMALACIA 09/04/2013 KWABENA HDEZ JACK K 733.92 CHONDROMALACIA 09/04/2013 JOSIAH PEDIATRIC ANESTHESIOLOGIST, RASHEED S 733.92 CHONDROMALACIA 09/04/2013 JOSIAH PEDIATRIC ANESTHESIOLOGIST, RASHEED S 733.92 CHONDROMALACIA 09/04/2013 ARIAS GRAJEDA MD 733.92 CHONDROMALACIA 09/04/2013 JOSIAH PEDIATRIC ANESTHESIOLOGIST, RASHEED S 733.92 CHONDROMALACIA 09/04/2013 JOSIAH PEDIATRIC ANESTHESIOLOGIST, RASHEED S 733.92 CHONDROMALACIA 09/04/2013 YUAN DO, JACK K 733.92 CHONDROMALACIA 09/04/2013 JOSIAH PEDIATRIC ANESTHESIOLOGIST, RASHEED S 733.92 CHONDROMALACIA 09/04/2013 JOSIAH PEDIATRIC ANESTHESIOLOGIST, RASHEED S 733.92 CHONDROMALACIA 09/04/2013 JOSIAH PEDIATRIC ANESTHESIOLOGIST, RASHEED S 733.92 CHONDROMALACIA 09/11/2013 JOSIAH PEDIATRIC ANESTHESIOLOGIST, RASHEED S 477.0 ALLERGIC RHINITIS DUE TO POLLEN 09/11/2013 JOSIAH PEDIATRIC ANESTHESIOLOGIST, RASHEED S 477.0 ALLERGIC RHINITIS DUE TO POLLEN 09/11/2013 MADL PEDIATRIC ANESTHESIOLOGISTKARINA LockwoodNYA L 477.0 ALLERGIC RHINITIS DUE TO POLLEN 09/11/2013 JOSIAH PEDIATRIC ANESTHESIOLOGIST, RASHEED S 477.0 ALLERGIC RHINITIS DUE TO POLLEN 09/11/2013 JOSIAH PEDIATRIC ANESTHESIOLOGIST, RASHEED S 477.0 ALLERGIC RHINITIS DUE TO POLLEN 09/11/2013 YUAN DO, JACK K 477.0 ALLERGIC RHINITIS DUE TO POLLEN 09/11/2013 JOSIAH PEDIATRIC ANESTHESIOLOGIST, RASHEED S 477.0 ALLERGIC RHINITIS DUE TO POLLEN 09/11/2013 JOSIAH PEDIATRIC ANESTHESIOLOGIST, RASHEED S 477.0 ALLERGIC RHINITIS DUE TO POLLEN 09/11/2013 ARIAS GRAJEDA MD 477.0 ALLERGIC RHINITIS DUE TO POLLEN 09/11/2013 JOSIAH PEDIATRIC ANESTHESIOLOGIST, RASHEED S 477.0 ALLERGIC RHINITIS DUE TO POLLEN 09/11/2013 JOSIAH PEDIATRIC ANESTHESIOLOGIST, RASHEED S 477.0 ALLERGIC RHINITIS DUE TO POLLEN 09/11/2013 YUAN DO, JACK K 477.0 ALLERGIC RHINITIS DUE TO POLLEN 09/11/2013 JOSIAH PEDIATRIC ANESTHESIOLOGIST, RASHEED S 477.0 ALLERGIC RHINITIS DUE TO POLLEN 09/11/2013 JOSIAH PEDIATRIC ANESTHESIOLOGIST, RASHEED S 477.0 ALLERGIC RHINITIS DUE TO POLLEN 09/11/2013 JOSIAH PEDIATRIC ANESTHESIOLOGIST, RASHEED S 477.0 ALLERGIC RHINITIS DUE TO POLLEN 10/31/2013 DINO TILLMAN PROPERTY SPECIALIST Ot 715.36 LOC OSTEOARTH NOS-L/LEG 10/31/2013 DINO TILLMAN PROPERTY SPECIALIST Ot 729.89 MUSCSKEL SYMPT LIMB NEC 10/31/2013 DINO TILLMAN PROPERTY SPECIALIST Ot 733.92 CHONDROMALACIA 10/31/2013 DINO TILLMAN PROPERTY SPECIALIST Ot V43.65 KNEE JOINT REPLACEMENT STATUS 10/31/2013 DINO TILLMAN PROPERTY SPECIALIST Ot V54.81 AFTERCARE FOLLOWING JOINT REPLACEMENT 10/31/2013 DINO TILLMAN PROPERTY SPECIALIST Ot V57.1 PHYSICAL THERAPY NEC 11/17/2013 MADL PEDIATRIC ANESTHESIOLOGIST, NANCY L 578.1 BLOOD IN STOOL 11/17/2013 MADL PEDIATRIC ANESTHESIOLOGIST, NANCY L 789.06 ABDOMINAL PAIN EPIGASTRIC 11/17/2013 JOSIAH PEDIATRIC ANESTHESIOLOGIST, RASHEED S 578.1 BLOOD IN STOOL 11/17/2013 JOSIAH PEDIATRIC ANESTHESIOLOGIST, RASHEED S 789.06 ABDOMINAL PAIN EPIGASTRIC 11/17/2013 JOSIAH PEDIATRIC ANESTHESIOLOGIST, RASHEED S 578.1 BLOOD IN STOOL 11/17/2013 JOSIAH PEDIATRIC ANESTHESIOLOGIST, RASHEED S 789.06 ABDOMINAL PAIN EPIGASTRIC 11/17/2013 YUAN DO, JACK K 578.1 BLOOD IN STOOL 11/17/2013 YUAN DO, JACK K 789.06 ABDOMINAL PAIN EPIGASTRIC 11/17/2013 JOSIAH PEDIATRIC ANESTHESIOLOGIST, RASHEED S 578.1 BLOOD IN STOOL 11/17/2013 JOSIAH PEDIATRIC ANESTHESIOLOGIST, RASHEED S 789.06 ABDOMINAL PAIN EPIGASTRIC 11/17/2013 JOSIAH PEDIATRIC ANESTHESIOLOGIST, RASHEED S 578.1 BLOOD IN STOOL 11/17/2013 JOSIAH PEDIATRIC ANESTHESIOLOGIST, RASHEED S 789.06 ABDOMINAL PAIN EPIGASTRIC 11/17/2013 ARIAS GRAJEDA MD 578.1 BLOOD IN STOOL 11/17/2013 ARIAS GRAJEDA MD 789.06 ABDOMINAL PAIN EPIGASTRIC 11/17/2013 JOSIAH PEDIATRIC ANESTHESIOLOGIST, RASHEED S 578.1 BLOOD IN STOOL 11/17/2013 JOSIAH PEDIATRIC ANESTHESIOLOGIST, RASHEED S 789.06 ABDOMINAL PAIN EPIGASTRIC 11/17/2013 JOSIAH PEDIATRIC ANESTHESIOLOGIST, RASHEED S 578.1 BLOOD IN STOOL 11/17/2013 JOSIAH PEDIATRIC ANESTHESIOLOGIST, RASHEED S 789.06 ABDOMINAL PAIN EPIGASTRIC 11/17/2013 YUAN DO, JACK K 578.1 BLOOD IN STOOL 11/17/2013 YUAN DO, JACK K 789.06 ABDOMINAL PAIN EPIGASTRIC 11/17/2013 JOSIAH PEDIATRIC ANESTHESIOLOGIST, RASHEED S 578.1 BLOOD IN STOOL 11/17/2013 JOSIAH PEDIATRIC ANESTHESIOLOGIST, RASHEED S 789.06 ABDOMINAL PAIN EPIGASTRIC 11/17/2013 JOSIAH PEDIATRIC ANESTHESIOLOGIST, RASHEED S 578.1 BLOOD IN STOOL 11/17/2013 JOSIAH PEDIATRIC ANESTHESIOLOGIST, RASHEED S 789.06 ABDOMINAL PAIN EPIGASTRIC 11/17/2013 JOSIAH PEDIATRIC ANESTHESIOLOGIST, RASHEED S 578.1 BLOOD IN STOOL 11/17/2013 JOSIAH PEDIATRIC ANESTHESIOLOGIST, RASHEED S 789.06 ABDOMINAL PAIN EPIGASTRIC 12/17/2013 JACK YUAN DO K 354.0 CARPAL TUNNEL SYNDROME 12/17/2013 JOSIAH PEDIATRIC ANESTHESIOLOGIST, RASHEED S 354.0 CARPAL TUNNEL SYNDROME 12/17/2013 JOSIAH PEDIATRIC ANESTHESIOLOGIST, RASHEED S 354.0 CARPAL TUNNEL SYNDROME 12/17/2013 ARIAS GRAJEDA MD 354.0 CARPAL TUNNEL SYNDROME 12/17/2013 JOSIAH PEDIATRIC ANESTHESIOLOGIST, RASHEED S 354.0 CARPAL TUNNEL SYNDROME 12/17/2013 JOSIAH PEDIATRIC ANESTHESIOLOGIST, RASHEED S 354.0 CARPAL TUNNEL SYNDROME 12/17/2013 INDER YUAN DOA K 354.0 CARPAL TUNNEL SYNDROME 12/17/2013 JOSIAH PEDIATRIC ANESTHESIOLOGIST, RASHEED S 354.0 CARPAL TUNNEL SYNDROME 12/17/2013 JOSIAH PEDIATRIC ANESTHESIOLOGIST, RAHSEED S 354.0 CARPAL TUNNEL SYNDROME 12/17/2013 JOSIAH PEDIATRIC ANESTHESIOLOGIST, RASHEED S 354.0 CARPAL TUNNEL SYNDROME 12/18/2013 INDER YUAN DOA K V76.10 BREAST CANCER SCREENING 12/18/2013 JOSIAH COVARRUBIASN, RASHEED S V76.10 BREAST CANCER SCREENING 12/18/2013 JOSIAH PEDIATRIC ANESTHESIOLOGIST, RASHEED S V76.10 BREAST CANCER SCREENING 12/18/2013 ARIAS GRAJEDA MD V76.10 BREAST CANCER SCREENING 12/18/2013 JOSIAH PEDIATRIC ANESTHESIOLOGIST, RASHEED S V76.10 BREAST CANCER SCREENING 12/18/2013 JOSIAH PEDIATRIC ANESTHESIOLOGIST, RASHEED S V76.10 BREAST CANCER SCREENING 12/18/2013 KWABENA HDEZ JACK K V76.10 BREAST CANCER SCREENING 12/18/2013 JOSIAH PEDIATRIC ANESTHESIOLOGIST, RASHEED S V76.10 BREAST CANCER SCREENING 12/18/2013 JOSIAH PEDIATRIC ANESTHESIOLOGIST, RASHEED S V76.10 BREAST CANCER SCREENING 12/18/2013 JOSIAH PEDIATRIC ANESTHESIOLOGIST, RASHEED S V76.10 BREAST CANCER SCREENING 01/05/2014 JOSIAH PEDIATRIC ANESTHESIOLOGIST, RASHEED S 356.9 NEUROPATHY 01/05/2014 JOSIAH PEDIATRIC ANESTHESIOLOGIST, RASHEED S 599.0 URINARY TRACT INFECTION 01/05/2014 JOSIAH PEDIATRIC ANESTHESIOLOGIST, RASHEED S 719.47 PAIN- FOOT 01/05/2014 JOSIAH PEDIATRIC ANESTHESIOLOGIST, RASHEED S 356.9 NEUROPATHY 01/05/2014 JOSIAH PEDIATRIC ANESTHESIOLOGIST, RASHEED S 599.0 URINARY TRACT INFECTION 01/05/2014 JOSIAH PEDIATRIC ANESTHESIOLOGIST, RASHEED S 719.47 PAIN- FOOT 01/05/2014 ARIAS GRAJEDA MD 356.9 NEUROPATHY 01/05/2014 ARIAS GRAJEDA MD 599.0 URINARY TRACT INFECTION 01/05/2014 ARIAS GRAJEDA MD 719.47 PAIN- FOOT 01/05/2014 JOSIAH PEDIATRIC ANESTHESIOLOGIST, RASHEED S 356.9 NEUROPATHY 01/05/2014 JOSIAH PEDIATRIC ANESTHESIOLOGIST, RASHEED S 599.0 URINARY TRACT INFECTION 01/05/2014 JOSIAH PEDIATRIC ANESTHESIOLOGIST, RASHEED S 719.47 PAIN- FOOT 01/05/2014 JOSIAH PEDIATRIC ANESTHESIOLOGIST, RASHEED S 356.9 NEUROPATHY 01/05/2014 JOSIAH PEDIATRIC ANESTHESIOLOGIST, RASHEED S 599.0 URINARY TRACT INFECTION 01/05/2014 JOSIAH PEDIATRIC ANESTHESIOLOGIST, RASHEED S 719.47 PAIN- FOOT 01/05/2014 YUAN DO, JACK K 356.9 NEUROPATHY 01/05/2014 YUAN DO, JACK K 599.0 URINARY TRACT INFECTION 01/05/2014 YUAN DO, JACK K 719.47 PAIN- FOOT 01/05/2014 JOSIAH PEDIATRIC ANESTHESIOLOGIST, RASHEED S 356.9 NEUROPATHY 01/05/2014 JOSIAH PEDIATRIC ANESTHESIOLOGIST, RASHEED S 599.0 URINARY TRACT INFECTION 01/05/2014 JOSIAH PEDIATRIC ANESTHESIOLOGIST, RASHEED S 719.47 PAIN- FOOT 01/05/2014 JOSIAH PEDIATRIC ANESTHESIOLOGIST, RASHEED S 356.9 NEUROPATHY 01/05/2014 JOSIAH PEDIATRIC ANESTHESIOLOGIST, RASHEED S 599.0 URINARY TRACT INFECTION 01/05/2014 JOSIAH PEDIATRIC ANESTHESIOLOGIST, RASHEED S 719.47 PAIN- FOOT 01/05/2014 JOSIAH PEDIATRIC ANESTHESIOLOGIST, RASHEED S 356.9 NEUROPATHY 01/05/2014 JOSIAH PEDIATRIC ANESTHESIOLOGIST, RASHEED S 599.0 URINARY TRACT INFECTION 01/05/2014 JOSIAH PEDIATRIC ANESTHESIOLOGIST, RASHEED S 719.47 PAIN- FOOT 01/30/2014 JAMIE [...] GRAJEDA MD 455.6 HEMORRHOIDS NOS 02/02/2014 JOSIAH PEDIATRIC ANESTHESIOLOGIST, RASHEED S 211.9 POLYP- GI 02/02/2014 JOSIAH PEDIATRIC ANESTHESIOLOGIST, RASHEDE S 455.6 HEMORRHOIDS NOS 02/02/2014 JOSIAH PEDIATRIC ANESTHESIOLOGIST, RASHEED S 211.9 POLYP- GI 02/02/2014 JOSIAH PEDIATRIC ANESTHESIOLOGIST, RASHEED S 455.6 HEMORRHOIDS NOS 02/02/2014 YUAN DO, JACK K 211.9 POLYP- GI 02/02/2014 YUAN DO, JACK K 455.6 HEMORRHOIDS NOS 02/02/2014 JOISAH PEDIATRIC ANESTHESIOLOGIST, RASHEED S 211.9 POLYP- GI 02/02/2014 JOSIAH PEDIATRIC ANESTHESIOLOGIST, RASHEED S 455.6 HEMORRHOIDS NOS 02/02/2014 JOSIAH PEDIATRIC ANESTHESIOLOGIST, RASHEED S 211.9 POLYP- GI 02/02/2014 JOSIAH PEDIATRIC ANESTHESIOLOGIST, RASHEED S 455.6 HEMORRHOIDS NOS 02/02/2014 JOSIAH PEDIATRIC ANESTHESIOLOGIST, RASHEED S 211.9 POLYP- GI 02/02/2014 JOSIAH PEDIATRIC ANESTHESIOLOGIST, RASHEED S 455.6 HEMORRHOIDS NOS 02/10/2014 JOSEE ESCOTO [facility], ALI FACP CCDS Ot 272.4 HYPERLIPIDEMIA NEC/NOS 02/10/2014 JOSEE ESCOTO [facility], ALI FACP CCDS Ot 278.00 OBESITY, NOS 02/10/2014 JOSEE ESCOTO [facility], ALI FACP CCDS Ot 305.1 TOBACCO USE DISORDER 02/10/2014 JOSEE ESCOTO FAC, ALI FACP CCDS Ot 401.9 HYPERTENSION NOS 02/10/2014 JOSEE ESCOTO [facility], ALI FACP CCDS Ot 530.81 ESOPHAGEAL REFLUX 02/10/2014 JOSEE ESCOTO [facility], ALI FACP CCDS Ot 786.50 CHEST PAIN NOS 02/10/2014 JOSEE ESCOTO [facility], ALI FACP CCDS Ot V17.3 FAM HX-ISCHEM HEART DIS 02/10/2014 JOSEE ESCOTO [facility], ALI FACP CCDS Ot V58.69 OTH MED,LT,CURRENT USE 02/10/2014 JOSEE ESCOTO [facility], ALI FACP CCDS Ot V85.37 BODY [...] APRNA S V15.82 NICOTINE ABUSE 03/19/2014 JOSIAH PEDIATRIC ANESTHESIOLOGIST, RASHEED S 729.82 CRAMP OF LIMB 03/19/2014 [...] APRNA S 788.1 DYSURIA 04/07/2014 RASHEED RAHMAN PROPERTY SPECIALIST Ot 719.46 JOINT PAIN-L/LEG 04/07/2014 RASHEED RAHMANP Ot V57.1 PHYSICAL THERAPY NEC 04/10/2014 LIBERTY SANDOVAL PEDIATRIC ANESTHESIOLOGIST Ot 491.21 OBSTR CHRONIC BRONCHITIS, W (ACUTE) EXAC 04/10/2014 LIBERTY SANDOVAL PEDIATRIC ANESTHESIOLOGIST Ot 786.05 SHORTNESS OF BREATH 04/10/2014 LIBERTY SANDOVAL PEDIATRIC ANESTHESIOLOGIST Ot 787.02 NAUSEA ALONE 04/10/2014 LIBERTY SANDOVAL PEDIATRIC ANESTHESIOLOGIST Ot 787.91 DIARRHEA 04/17/2014 YUAN DO, JACK K 110.1 ONYCHOMYCOSIS 04/17/2014 YUAN DO, JACK K 706.8 XEROSIS 04/17/2014 NAKIA RAHMAN APRNNDA S 110.1 ONYCHOMYCOSIS 04/17/2014 NAKIA RAHMAN APRNNDA S 706.8 XEROSIS 04/17/2014 JOSIAH LERNER RASHEED S 110.1 ONYCHOMYCOSIS 04/17/2014 NAKIA RAHMAN APRNNDA S 706.8 XEROSIS 04/17/2014 NAKIA RAHMAN APRNNDA S 110.1 ONYCHOMYCOSIS 04/17/2014 JOSIAH LERNER RASHEED S 706.8 XEROSIS 06/03/2014 JOSIAH PEDIATRIC ANESTHESIOLOGIST, RASHEED S 466.0 BRONCHITIS, ACUTE 06/03/2014 JOSIAH PEDIATRIC ANESTHESIOLOGIST, RASHEED S 466.0 BRONCHITIS, ACUTE 06/03/2014 JOSIAH PEDIATRIC ANESTHESIOLOGIST, RASHEED S 466.0 BRONCHITIS, ACUTE 07/06/2014 JOSIAH PEDIATRIC ANESTHESIOLOGIST, RASHEED S 719.41 PAIN- SHOULDER 07/27/2014 Ot 786.50 07/27/2014 Ot 715.36 07/27/2014 Ot 791.9 07/27/2014 Ot V57.1 07/27/2014 Ot V57.21 07/27/2014 Ot V72.63 07/27/2014 Ot V74.8 07/27/2014 RASHEED RAHMAN Ot V76.12 07/27/2014 RASHEED RAHMAN Ot V76.12 07/27/2014 SAMEERA ESCOTO, JAMIE Ot V72.84 07/27/2014 NASEEM ESCOTO, SOSA Shelby Ot 717.7 07/27/2014 NASEEM ESCOTO, SOSA Shelby Ot V72.84 07/27/2014 NASEEM ESCOTO, SOSA hSelby Ot V74.8 09/23/2014 KAREN ESCOTO, RYAN Moeller [...] RASHEED RAHMANP Ot V76.12 10/12/2014 RASHEED RAHMAN PROPERTY SPECIALIST Ot V76.12 10/12/2014 SAMEERA ESCOTO, JAMIE Ot V72.84 10/12/2014 NASEEM ESCOTO, SOSA P Ot 717.7 10/12/2014 NASEEM ESCOTO, SOSA P Ot V72.84 10/12/2014 NASEEM ESCOTO, SOSA P Ot V74.8 10/12/2014 NASEEM ESCOTO, SOSA P Ot 727.61 10/12/2014 KAREN ESCOTO, RYAN A Ot 599.82 10/12/2014 KAREN ESCOTO, RYAN A Ot 788.30 10/12/2014 KAREN ESCOTO, RYAN A Ot V72.84 10/12/2014 KAREN ESCOTO, RYAN A Ot V74.8 10/29/2014 Ot 786.50 10/29/2014 Ot 715.36 10/29/2014 Ot 791.9 10/29/2014 Ot V57.1 10/29/2014 Ot V57.21 10/29/2014 Ot V72.63 10/29/2014 Ot V74.8 10/29/2014 RASHEED RAHMAN PROPERTY SPECIALIST Ot V76.12 10/29/2014 RASHEED RAHMAN PROPERTY SPECIALIST Ot V76.12 10/29/2014 SAMEERA ESCOTO, JAMIE Ot V72.84 10/29/2014 NASEEM ESCOTO, SOSA P Ot 717.7 10/29/2014 NASEEM ESCOTO, SOSA P Ot V72.84 10/29/2014 NASEEM ESCOTO, SOSA P Ot V74.8 10/29/2014 NASEEM ESCOTO, SOSA P Ot 727.61 10/29/2014 KAREN [...] RUFINA ESCOTO, NARAYAN Marr Ot V74.8 01/13/2015 NASEEM ESCOTO, SOSA Shelby Ot 272.4 HYPERLIPIDEMIA NEC/NOS 01/13/2015 NASEEM ESCOTO, SOSA Shelby Ot 305.1 TOBACCO USE DISORDER 01/13/2015 NASEEM ESCOTO, SOSA Shelby Ot 401.9 HYPERTENSION NOS 01/13/2015 NASEEM ESCOTO, SOSA Shelby Ot 496 CHR AIRWAY OBSTRUCT NEC 01/13/2015 NASEEM ESCOTO, SOSA Shelby Ot 715.31 LOC OSTEOARTH NOS-SHLDER 01/13/2015 NASEEM ESCOTO, SOSA Shelby Ot 840.7 (SLAP) SUPERIOR GLENOID LABRUM LESIONS 01/13/2015 NASEEM ESCOTO, SOSA Shelby Ot V58.69 OT MED,LT,CURRENT USE 01/19/2015 NASEEM ESCOTO, SOSA P Ot 727.61 01/19/2015 NASEEM ESCOTO, SOSA Shelby Ot V57.1 01/19/2015 NASEEM ESCOTO, SOSA P Ot V58.78 01/19/2015 NASEEM ESCOTO, SOSA P Ot 727.61 01/19/2015 NASEEM ESCOTO, SOSA P Ot V57.1 01/19/2015 NASEEM ESCOTO, SOSA Shelby Ot V58.78 02/10/2015 NASEEM ESCOTO, SOSA Shelby Ot 727.61 ROTATOR CUFF RUPTURE 02/10/2015 NASEEM ESCOTO, SOSA Shelby Ot V57.1 PHYSICAL THERAPY NEC 02/10/2015 NASEEM ESCOTO, SOSA Shelby Ot V58.78 AFTERCARE POST SURGERY MUSCULOSKELETAL S 03/17/2015 Ot 786.50 03/17/2015 Ot 715.36 03/17/2015 Ot 791.9 03/17/2015 Ot V57.1 03/17/2015 Ot V57.21 03/17/2015 Ot V72.63 03/17/2015 Ot V74.8 03/17/2015 RASHEED RAHMAN Ot V76.12 03/17/2015 RASHEED RAHMAN Ot V76.12 03/17/2015 SAMEERA ESCOTO, JAMIE Ot V72.84 03/17/2015 NASEEM ESCOTO, SOSA Shelby Ot 717.7 03/17/2015 NASEEM ESCOTO, SOSA Shelby Ot V72.84 03/17/2015 NASEEM ESCOTO, SOSA P Ot V74.8 03/17/2015 NASEEM ESCOTO, SOSA P Ot 727.61 03/17/2015 KAREN [...] RUFINA ESCOTO, NARAYAN Marr Ot V74.8 03/17/2015 NASEEM ESCOTO, SOSA P Ot 715.31 03/17/2015 NASEEM ESCOTO, SOSA P Ot 727.61 03/17/2015 NASEEM ESCOTO, SOSA P Ot 840.7 03/17/2015 NASEEM ESCOTO, SOSA P Ot V72.83 03/24/2015 NASEEM ESCOTO, SOSA P Ot E78.5 HYPERLIPIDEMIA, UNSPECIFIED 03/24/2015 NASEEM ESCOTO, SOSA P Ot G56.02 CARPAL TUNNEL SYNDROME, LEFT UPPER LIMB 03/24/2015 NASEEM ESCOTO, SOSA P Ot I10 ESSENTIAL (PRIMARY) HYPERTENSION 03/24/2015 NASEEM ESCOTO, SOSA P Ot J44.9 CHRONIC OBSTRUCTIVE PULMONARY DISEASE, U 04/08/2015 RASHEED RAHMAN PROPERTY SPECIALIST Ot Z12.31 04/13/2015 RASHEED RAHMAN PROPERTY SPECIALIST Ot Z12.31 04/21/2015 SOSA ARZOLA MD Ot [...] MAMMO-MALIGN NEOPLASM OF SAMANTHA 01/04/2016 JOSIAH RASHEED PROPERTY SPECIALIST Ot V76.12 OTH SCREEN MAMMO-MALIGN NEOPLASM OF SAMANTHA 01/04/2016 SAMEERA ESCOTO, JAMIE Ot V72.84 EXAM PRE-OPERATIVE NOS 01/04/2016 NASEEM ESCOTO, SOSA Shelby Ot 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 PATELLAE 01/04/2016 NASEEM ESCOTO, SOSA Shelby Ot V72.84 EXAM PRE-OPERATIVE NOS 01/04/2016 NASEEM ESCOTO, SOSA Shelby Ot V74.8 SCREEN-BACTERIAL DIS NEC 01/04/2016 NASEEM ESCOTO, SOSA Shelby Ot 727.61 ROTATOR CUFF [...] 01/04/2016 RUFINA ESCOTO, NARAYAN Marr Ot V72.81 RTRK-BZK-[id number] CARDIOVASCULAR 01/04/2016 RUFINA ESCOTO, NARAYAN Marr Ot V74.8 SCREEN-BACTERIAL DIS NEC 01/04/2016 NASEEM ESCOTO, SOSA Shelby Ot 715.31 LOC OSTEOARTH NOS-SHLDER 01/04/2016 NASEEM ESCOTO, SOSA Shelby Ot 727.61 ROTATOR CUFF RUPTURE 01/04/2016 NASEEM ESCOTO, SOSA Shelby Ot 840.7 (SLAP) SUPERIOR GLENOID LABRUM LESIONS 01/04/2016 NASEEM ESCOTO, SOSA Shelby Ot V72.83 EXAM PRE-OPERATIVE NEC 01/04/2016 Ot G56.02 CARPAL TUNNEL SYNDROME, LEFT UPPER LIMB 01/04/2016 Ot Z01.818 ENCOUNTER FOR OTHER PREPROCEDURAL EXAMIN 01/04/2016 Ot Z11.2 ENCOUNTER FOR SCREENING FOR OTHER BACTER 01/04/2016 RASHEED RAHMAN Ot Z12.31 ENCNTR SCREEN MAMMOGRAM FOR MALIGNANT NE 01/04/2016 MORAIMA NOEL DO Ot Z13.89 ENCOUNTER FOR SCREENING FOR OTHER DISORD 01/04/2016 NASEEM ESCOTO, SOSA Shelby Ot G56.01 CARPAL TUNNEL SYNDROME, RIGHT UPPER LIMB 01/04/2016 NASEEM ESCOTO, SOSA Shelby Ot Z01.818 ENCOUNTER FOR OTHER PREPROCEDURAL EXAMIN 01/04/2016 MORAIMA NOEL DO Ot J40 BRONCHITIS, NOT SPECIFIED ACUTE OR CH 01/04/2016 MORAIMA NOEL DO Ot J44.9 CHRONIC OBSTRUCTIVE PULMONARY DISEASE, U 01/04/2016 MORAIMA NOEL DO Ot N39.0 URINARY TRACT INFECTION, SITE NOT SPECIF 01/04/2016 NASEEM ESCOTO, SOSA Shelby Ot S43.431D SUPERIOR GLENOID LABRUM LESION OF RIGHT 01/05/2016 LIBERTY SANDOVAL APRN Ot F17.210 NICOTINE DEPENDENCE, CIGARETTES, UNCOMPL 01/05/2016 LIBERTY SANDOVAL APRN Ot T78.40XA ALLERGY, UNSPECIFIED, INITIAL ENCOUNTER 01/13/2016 TILLMAN, DINO D PROPERTY SPECIALIST Ot R22.31 LOCALIZED SWELLING, MASS AND LUMP, RIGHT 02/04/2016 NASEEM ESCOTO, SOSA Shelby Ot S43.431D SUPERIOR GLENOID LABRUM LESION OF RIGHT 02/04/2016 NASEEM ESCOTO, SOSA Shelby Ot S43.431D SUPERIOR GLENOID LABRUM LESION OF RIGHT 02/04/2016 DINO TILLMAN PROPERTY SPECIALIST Ot R22.31 LOCALIZED SWELLING, MASS AND LUMP, RIGHT 02/08/2016 NASEEM ESCOTO, SOSA Shelby Ot S43.431D SUPERIOR GLENOID LABRUM LESION OF RIGHT 02/08/2016 DINO TILLMAN Ot R22.31 LOCALIZED SWELLING, MASS AND LUMP, RIGHT 02/21/2016 NASEEM ESCOTO, SOSA Shelby Ot S43.431D SUPERIOR GLENOID [...] JAMIE Ot V72.84 EXAM PRE-OPERATIVE NOS 04/03/2016 NASEEM ESCOTO, SOSA Shelby Ot 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 PATELLAE [...] 04/03/2016 RUFINA ESCOTO, NARAYAN Marr Ot V72.81 JKRO-EEI-MHLZEJIJI CARDIOVASCULAR 04/03/2016 RUFINA ESCOTO, NARAYAN Marr Ot V74.8 SCREEN-BACTERIAL DIS NEC 04/03/2016 NASEEM ESCOTO, SOSA Shelby Ot 715.31 LOC OSTEOARTH NOS-SHLDER 04/03/2016 SOSA ARZOLA MD Ot 727.61 ROTATOR CUFF RUPTURE 04/03/2016 NASEEM ESCOTO, SOSA Shelby Ot 840.7 (SLAP) SUPERIOR GLENOID LABRUM LESIONS 04/03/2016 NASEEM ESCOTO, SOSA Shelby Ot V72.83 EXAM PRE-OPERATIVE NEC 04/03/2016 Ot G56.02 CARPAL TUNNEL SYNDROME, LEFT UPPER LIMB 04/03/2016 Ot Z01.818 ENCOUNTER FOR OTHER PREPROCEDURAL EXAMIN 04/03/2016 Ot Z11.2 ENCOUNTER FOR SCREENING FOR OTHER BACTER 04/03/2016 RASHEED RAHMAN Ot Z12.31 ENCNTR SCREEN MAMMOGRAM FOR MALIGNANT NE 04/03/2016 MORAIMA NOEL DO Ot Z13.89 ENCOUNTER FOR SCREENING FOR OTHER DISORD 04/03/2016 NASEEM ESCOTO, SOSA Shelby Ot G56.01 CARPAL TUNNEL SYNDROME, RIGHT UPPER LIMB 04/03/2016 NASEEM ESCOTO, SOSA Shelby Ot Z01.818 ENCOUNTER FOR OTHER PREPROCEDURAL EXAMIN 04/03/2016 MORAIMA NOEL DO Ot J40 BRONCHITIS, NOT SPECIFIED ACUTE OR CH 04/03/2016 MORAIMA NOEL DO Ot J44.9 CHRONIC OBSTRUCTIVE PULMONARY DISEASE, U 04/03/2016 MORAIMA NOEL DO Ot N39.0 URINARY TRACT INFECTION, SITE NOT SPECIF 04/03/2016 DINO TILLMAN PROPERTY SPECIALIST Ot R22.31 LOCALIZED SWELLING, MASS AND LUMP, [...] JAMIE Ot V72.84 EXAM PRE-OPERATIVE NOS 04/12/2016 NASEEM ESCOTO, SOSA Shelby Ot 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 PATELLAE 04/12/2016 NASEEM ESCOTO, SOSA Shelby Ot V72.84 EXAM PRE-OPERATIVE NOS 04/12/2016 NASEEM ESCOTO, SOSA Shelby Ot V74.8 SCREEN-BACTERIAL DIS NEC 04/12/2016 NASEEM ESCOTO, SOSA Shelby Ot 727.61 ROTATOR CUFF [...] 04/12/2016 RUFINA ESCOTO, NARAYAN Marr Ot V72.81 TPXU-WMC-NUCZQGAFX CARDIOVASCULAR 04/12/2016 RUFINA ESCOTO, NARAYAN Marr Ot V74.8 SCREEN-BACTERIAL DIS NEC 04/12/2016 NASEEM ESCOTO, SOSA Shelby Ot 715.31 LOC OSTEOARTH NOS-SHLDER 04/12/2016 NASEEM ESCOTO, SOSA Shelby Ot 727.61 ROTATOR CUFF RUPTURE 04/12/2016 NASEEM ESCOTO, SOSA Shelby Ot 840.7 (SLAP) SUPERIOR GLENOID LABRUM LESIONS 04/12/2016 NASEEM ESCOTO, SOSA Shelby Ot V72.83 EXAM PRE-OPERATIVE [...] NEUROMUSCULAR DYSFUNCTION OF BLADDER, UN 07/13/2016 YAMILET SEGLA MD Ot R51 HEADACHE 07/13/2016 YAMILET SEGAL [...] N31.9 NEUROMUSCULAR DYSFUNCTION OF BLADDER, UN 07/14/2016 YAIMLET SEAGL MD Ot R51 HEADACHE 07/14/2016 YAMILET SEGAL [...] L03.116 CELLULITIS OF LEFT LOWER LIMB 07/15/2016 YAMILTE SEGAL MD, Ot L08.9 LOCAL INFECTION OF [...] JAMIE Ot V72.84 EXAM PRE-OPERATIVE NOS 07/29/2016 NASEEM ESCOTO, SOSA Shelby Ot 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 PATELLAE [...] 07/29/2016 RUFINA ESCOTO, NARAYAN Marr Ot V72.81 YUFY-CKM-ZOQVUMQNC CARDIOVASCULAR 07/29/2016 RUFINA ESCOTO, NARAYAN Marr Ot V74.8 SCREEN-BACTERIAL DIS NEC 07/29/2016 NASEEM ESCOTO, SOSA Shelby Ot 715.31 LOC OSTEOARTH NOS-SHLDER 07/29/2016 NASEEM ESCOTO, SOSA Shelby Ot 727.61 ROTATOR CUFF RUPTURE 07/29/2016 NASEEM ESCOTO, SOSA Shelby Ot 840.7 (SLAP) SUPERIOR GLENOID LABRUM LESIONS 07/29/2016 NASEEM ESCOTO, SOSA Shelby Ot V72.83 EXAM PRE-OPERATIVE NEC 07/29/2016 Ot G56.02 CARPAL TUNNEL SYNDROME, LEFT UPPER LIMB 07/29/2016 Ot Z01.818 ENCOUNTER FOR OTHER PREPROCEDURAL EXAMIN 07/29/2016 Ot Z11.2 ENCOUNTER FOR SCREENING FOR OTHER BACTER 07/29/2016 RASHEED RAHMAN Ot Z12.31 ENCNTR SCREEN MAMMOGRAM FOR MALIGNANT NE 07/29/2016 MORAIMA NOEL DO Ot Z13.89 ENCOUNTER FOR SCREENING FOR OTHER DISORD 07/29/2016 NASEEM ESCOTO, SOSA Shelby Ot G56.01 CARPAL TUNNEL SYNDROME, RIGHT UPPER LIMB 07/29/2016 NASEEM ESCOTO, SOSA Shelby Ot Z01.818 ENCOUNTER FOR [...] JAMIE Ot V72.84 EXAM PRE-OPERATIVE NOS 10/25/2016 NASEEM ESCOTO, SOSA Shelby Ot 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 PATELLAE 10/25/2016 SOSA ARZOLA MD Ot V72.84 EXAM PRE-OPERATIVE NOS 10/25/2016 NASEEM ESCOTO, SOSA Shelby Ot V74.8 SCREEN-BACTERIAL DIS NEC 10/25/2016 NASEEM ESCOTO, SOSA Shelby Ot 727.61 ROTATOR CUFF RUPTURE 10/25/2016 KAREN ESCOTO, RYNA Moeller Ot 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 [...] Ot V72.63 PRE-PROCEDURAL LABORATORY EXAMINATION 10/25/2016 RUFINA ESCTOO, NARAYAN Marr Ot V72.81 ZGPK-SEB-HPTGVWCKA CARDIOVASCULAR 10/25/2016 NARAYAN ALMARAZ MD Ot V74.8 [...] 11/17/2016 MEDARDO DUFFY MD Ot Z79.899 OTHER PENITENTIARY (CURRENT) DRUG THERAPY 11/21/2016 CLIVE ESCOTO, MEDARDO Chowdhury Ot Z51.81 ENCOUNTER FOR THERAPEUTIC DRUG LEVEL MON 11/21/2016 CLIVE ESCOTO, MEDARDO Chowdhury Ot Z79.899 OTHER PENITENTIARY (CURRENT) DRUG THERAPY 05/01/2017 RASHEED RAHMAN Ot V76.12 OTH SCREEN MAMMO-MALIGN NEOPLASM OF SAMANTHA 05/01/2017 RASHEED RAHMAN Ot V76.12 OTH SCREEN MAMMO-MALIGN NEOPLASM OF SAMANTHA 05/01/2017 SAMEERA ESCOTO, JAMIE Ot V72.84 EXAM PRE-OPERATIVE NOS 05/01/2017 NASEEM ESCOTO, SOSA Shelby Ot 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 PATELLAE [...] NOEL DO Ot E888.9 FALL NOS 05/01/2017 MORIAMA NOEL DO Ot 789.01 ABDOMINAL PAIN, RIGHT UPPER QUADRANT 05/01/2017 MORAIMA NOEL DO Ot 575.8 DIS OF GALLBLADDER NEC 05/01/2017 RUFINA ESCOTO, NARAYAN Marr Ot 575.8 DIS OF GALLBLADDER NEC 05/01/2017 RUFINA ESCOTO, NARAYAN Marr Ot V72.63 PRE-PROCEDURAL LABORATORY EXAMINATION 05/01/2017 RUFINA ESCOTO, NARAYAN Marr Ot V72.81 ZDFU-TMW-COCSMGIVN CARDIOVASCULAR 05/01/2017 RUFINA ESCOTO, NARAYAN Marr Ot V74.8 SCREEN-BACTERIAL DIS NEC 05/01/2017 NASEEM ESCOTO, SOSA Shelby Ot 715.31 LOC OSTEOARTH NOS-SHLDER 05/01/2017 SOSA AZROLA MD Ot 727.61 ROTATOR CUFF RUPTURE 05/01/2017 [...] CLIVE ESCOTO, MEDARDO Chowdhury Ot Z79.899 OTHER PENITENTIARY (CURRENT) DRUG THERAPY 05/01/2017 MEDARDO DUFFY MD [...] MAMMO-MALIGN NEOPLASM OF SAMANTHA 05/21/2017 RASHEED RAHMAN PROPERTY SPECIALIST Ot V76.12 OTH SCREEN MAMMO-MALIGN NEOPLASM OF [...] 05/21/2017 RUFINA ESCOTO, NARAYAN Marr Ot V72.81 NCQH-PRT-MDXMRKUFY CARDIOVASCULAR 05/21/2017 RUFINA ESCOTO, NARAYAN Marr Ot V74.8 SCREEN-BACTERIAL DIS NEC 05/21/2017 NASEEM ESCOTO, SOSA Shelby Ot 715.31 LOC OSTEOARTH NOS-SHLDER 05/21/2017 NASEEM ESCOTO, SOSA Shelby Ot 727.61 ROTATOR CUFF RUPTURE 05/21/2017 NASEEM ESCOTO, SOSA Shelby Ot 840.7 (SLAP) SUPERIOR [...] ENCOUNTER FOR SCREENING FOR OTHER DISORD 05/21/2017 NASEEM ESCOTO, SOSA Shelby Ot G56.01 CARPAL TUNNEL [...] ENCNTR SCREEN MAMMOGRAM FOR MALIGNANT NE 05/21/2017 NASEEM ESCOTO, SOSA Shelby Ot M75.121 COMPLETE ROTATR-CUFF TEAR/RUPTR OF R JOSSY 05/21/2017 MEDARDO DUFFY MD Ot Z51.81 ENCOUNTER FOR THERAPEUTIC DRUG LEVEL MON 05/21/2017 MEDARDO DUFFY MD Ot Z79.899 OTHER STEAM SHOVELMAN (CURRENT) DRUG THERAPY 05/21/2017 MEDARDO DUFFY MD, [...] R06.02 SHORTNESS OF BREATH 06/08/2017 JOSEE ESCOTO [facility], ALI FACP CCDS Ot Z72.0 TOBACCO [...] MD Ot V74.8 SCREEN-BACTERIAL DIS NEC 02/26/2018 NASEEM ESCOTO, SOSA Shelby Ot 727.61 ROTATOR CUFF RUPTURE 02/26/2018 KAREN ESCOTO, RYNA Moeller Ot 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 [...] 02/26/2018 RUFINA ESCOTO, NARAYAN Marr Ot V72.81 YWWG-LWQ-NJNCTPEJL CARDIOVASCULAR 02/26/2018 RUFINA ESCOTO, NARAYAN Marr Ot V74.8 SCREEN-BACTERIAL DIS NEC 02/26/2018 NASEEM ESCOTO, SOSA Shelby Ot 715.31 LOC OSTEOARTH NOS-SHLDER 02/26/2018 NASEEM ESCOTO, SOSA Shelby Ot 727.61 ROTATOR CUFF RUPTURE 02/26/2018 NASEEM ESCOTO, SOSA Shelby Ot 840.7 (SLAP) SUPERIOR [...] 02/26/2018 MEDARDO DUFFY MD Ot Z79.899 OTHER STEAM SHOVELMAN (CURRENT) DRUG THERAPY 02/26/2018 MEDARDO DUFFY MD [...] TOBACCO CIGARETTES, SELF 02/26/2018 BAIMA, COURTNEY L PROPERTY SPECIALIST Ot 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 02/26/2018 BAIMA, COURTNEY L PROPERTY SPECIALIST Ot 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 02/26/2018 BAIMA, COURTNEY L PROPERTY SPECIALIST Ot 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 02/26/2018 RASHEED RAHMAN PROPERTY SPECIALIST Ot V76.12 OTH SCREEN MAMMO-MALIGN NEOPLASM OF [...] 02/26/2018 RUFINA ESCOTO, NARAYAN Marr Ot V72.81 GWQL-KLW-XKQJIAPYX CARDIOVASCULAR 02/26/2018 RUFINA ESCOTO, NARAYAN Marr Ot V74.8 SCREEN-BACTERIAL DIS NEC 02/26/2018 NASEEM ESCOTO, SOSA Shelby Ot 715.31 LOC OSTEOARTH NOS-SHLDER 02/26/2018 NASEEM ESCOTO, SOSA Shelby Ot 727.61 ROTATOR CUFF RUPTURE 02/26/2018 NASEEM ESCOTO, SOSA Shelby Ot 840.7 (SLAP) SUPERIOR [...] ENCOUNTER FOR SCREENING FOR OTHER DISORD 02/26/2018 NASEEM ESCOTO, SOSA Shelby Ot G56.01 CARPAL TUNNEL SYNDROME, RIGHT UPPER LIMB 02/26/2018 NASEEM ESCOTO, SOSA Shelby Ot Z01.818 ENCOUNTER FOR OTHER PREPROCEDURAL EXAMIN 02/26/2018 BERT HDEZMORAIMA Ot J40 BRONCHITIS, NOT SPECIFIED ACUTE OR CH 02/26/2018 BERT HDEZMORAIMA Ot J44.9 CHRONIC OBSTRUCTIVE PULMONARY DISEASE, U 02/26/2018 GELLENDER MORAIMA HDEZ Ot N39.0 URINARY TRACT INFECTION, SITE NOT SPECIF 02/26/2018 DINO TILLMAN PROPERTY SPECIALIST Ot R22.31 LOCALIZED SWELLING, MASS AND LUMP, RIGHT 02/26/2018 RASHEED RAHMAN Ot Z12.31 ENCNTR SCREEN MAMMOGRAM FOR MALIGNANT NE 02/26/2018 NASEEM ESCOTO, SOSA Shelby Ot M75.121 COMPLETE ROTATR-CUFF TEAR/RUPTR OF R JOSSY 02/26/2018 MEDARDO DUFFY MD Ot Z51.81 ENCOUNTER FOR THERAPEUTIC DRUG LEVEL MON 02/26/2018 MEDARDO DUFFY MD Ot Z79.899 OTHER STEAM SHOVELMAN (CURRENT) DRUG THERAPY 02/26/2018 MEDARDO DUFFY MD [...] SELF 02/26/2018 COURTNEY HONG Ot 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 02/28/2018 RASHEED RAHMAN Ot V76.12 OTH SCREEN MAMMO-MALIGN NEOPLASM OF SAMANTHA 02/28/2018 RASHEED RAHMAN Ot V76.12 OTH SCREEN MAMMO-MALIGN NEOPLASM OF SAMANTHA 02/28/2018 SAMEERA ESCOTO, JAMIE Ot V72.84 EXAM PRE-OPERATIVE NOS 02/28/2018 NASEEM ESCOTO, SOSA Shelby Ot 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 PATELLAE 02/28/2018 NASEEM ESCOTO, SOSA Shelby Ot V72.84 EXAM PRE-OPERATIVE NOS 02/28/2018 NASEEM ESCOTO, SOSA Shelby Ot V74.8 SCREEN-BACTERIAL DIS NEC 02/28/2018 NASEEM ESCOTO, SOSA Shelby Ot 727.61 ROTATOR CUFF [...] 02/28/2018 RUFINA ESCOTO, NARAYAN Marr Ot V72.81 QSCK-PSG-RGACUXOCU CARDIOVASCULAR 02/28/2018 RUFINA ESCOTO, NARAYAN Marr Ot V74.8 SCREEN-BACTERIAL DIS NEC 02/28/2018 NASEEM ESCOTO, SOSA Shelby Ot 715.31 LOC OSTEOARTH NOS-SHLDER 02/28/2018 NASEEM ESCOTO, SOSA Shelby Ot 727.61 ROTATOR CUFF [...] 02/28/2018 MEDARDO DUFFY MD Ot Z79.899 OTHER STEAM SHOVELMAN (CURRENT) DRUG THERAPY 02/28/2018 MEDARDO DUFFY MD Ot Z12.31 ENCNTR SCREEN MAMMOGRAM FOR MALIGNANT NE 02/28/2018 PAMELA ESCOTO, JEN Zhong Ot M25.811 OTHER SPECIFIED JOINT DISORDERS, RIGHT S 02/28/2018 JOSEE ESCOTO FACC, ALI FACP CCDS Ot E78.4 OTHER HYPERLIPIDEMIA 02/28/2018 JOSEE ESCOTO FACC, ALI FACP CCDS Ot I10 ESSENTIAL (PRIMARY) HYPERTENSION 02/28/2018 JOSEE ESCOTO [facility], [facility] CCDS Ot J43.8 OTHER EMPHYSEMA 02/28/2018 JOSEE ESCOTO 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 03/05/2018 RASHEED [...] 03/05/2018 RUFINA ESCOTO, NARAYAN Marr Ot V72.81 TIIO-DJR-OFVBXXMNI CARDIOVASCULAR 03/05/2018 RUFINA ESCOTO, NARAYAN Marr Ot V74.8 SCREEN-BACTERIAL DIS NEC 03/05/2018 NASEEM ESCOTO, SOSA Shelby Ot 715.31 LOC OSTEOARTH NOS-SHLDER 03/05/2018 NASEEM ESCOTO, SOSA Shelby Ot 727.61 ROTATOR CUFF RUPTURE 03/05/2018 NASEEM ESCOTO, SOSA Shelby Ot 840.7 (SLAP) SUPERIOR GLENOID LABRUM LESIONS 03/05/2018 NASEEM ESCOTO, SOSA Shelby Ot V72.83 EXAM PRE-OPERATIVE NEC 03/05/2018 Ot G56.02 CARPAL TUNNEL SYNDROME, LEFT UPPER LIMB 03/05/2018 Ot Z01.818 ENCOUNTER FOR OTHER PREPROCEDURAL EXAMIN 03/05/2018 Ot Z11.2 ENCOUNTER FOR SCREENING FOR OTHER BACTER 03/05/2018 RASHEED RAHMAN Ot Z12.31 ENCNTR SCREEN MAMMOGRAM FOR MALIGNANT NE 03/05/2018 MORAIMA NOEL DO Ot Z13.89 ENCOUNTER FOR SCREENING FOR OTHER DISORD 03/05/2018 NASEEM ESCOTO, SOSA Shelby Ot G56.01 CARPAL TUNNEL SYNDROME, RIGHT UPPER LIMB 03/05/2018 NASEEM ESCOTO, SOSA Shelby Ot Z01.818 ENCOUNTER FOR OTHER PREPROCEDURAL EXAMIN 03/05/2018 MORAIMA NOEL DO Ot J40 BRONCHITIS, NOT SPECIFIED ACUTE OR CH 03/05/2018 MORAIMA NOEL DO Ot J44.9 CHRONIC OBSTRUCTIVE PULMONARY DISEASE, U 03/05/2018 MORAIMA NOEL DO Ot N39.0 URINARY TRACT INFECTION, SITE NOT SPECIF 03/05/2018 TILLMAN DINO Radu PROPERTY SPECIALIST Ot R22.31 LOCALIZED SWELLING, MASS AND LUMP, RIGHT 03/05/2018 RASHEED RAHMAN PROPERTY SPECIALIST Ot Z12.31 ENCNTR SCREEN MAMMOGRAM FOR MALIGNANT NE 03/05/2018 NASEEM ESCOTO, SOSA Shelby Ot M75.121 COMPLETE ROTATR-CUFF TEAR/RUPTR OF R JOSSY 03/05/2018 CLIVE ESCOTO, MEDARDO Chowdhury Ot Z51.81 ENCOUNTER FOR THERAPEUTIC DRUG LEVEL MON 03/05/2018 MEDARDO DUFFY MD Ot Z79.899 OTHER STEAM SHOVELMAN (CURRENT) DRUG THERAPY 03/05/2018 MEDARDO DUFFY MD [...] SELF 03/05/2018 COURTNEY HONG Ot 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 03/05/2018 COURTNEY HONG Ot 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 03/17/2018 JUANA GODWIN MD Ot R06.02 SHORTNESS OF BREATH 03/17/2018 JUANA GODWIN MD Ot T78.40XA ALLERGY, UNSPECIFIED, INITIAL ENCOUNTER 03/19/2018 JUANA GODWIN MD Ot R06.02 SHORTNESS OF BREATH 03/19/2018 JUANA GODWIN MD Ot T78.40XA ALLERGY, UNSPECIFIED, INITIAL ENCOUNTER 03/26/2018 JOSEE ESCOTO FACC, ALI FACP CCDS Ot E66.9 OBESITY, UNSPECIFIED 03/26/2018 JOSEE ESCOTO FACC, ALI FACP CCDS Ot E78.5 HYPERLIPIDEMIA, UNSPECIFIED 03/26/2018 JOSEE ESCOTO FACC, ALI FACP CCDS Ot I10 ESSENTIAL (PRIMARY) HYPERTENSION 03/26/2018 JOSEE ESCOTO FACC, ALI FACP CCDS Ot I73.9 PERIPHERAL VASCULAR DISEASE, UNSPECIFIED 03/26/2018 JOSEE ESCOTO FACC, ALI FACP CCDS Ot K21.9 GASTRO-ESOPHAGEAL REFLUX DISEASE WITHOUT 03/26/2018 JOSEE ESCOTO FACC, ALI FACP CCDS Ot R06.02 SHORTNESS OF BREATH 03/26/2018 JOSEE ESCOTO FACC, ALI FACP CCDS Ot R60.0 LOCALIZED EDEMA 03/26/2018 JOSEE ESCOTO FACC, ALI FACP CCDS Ot Z68.42 BODY MASS INDEX (BMI) 45.0-49.9, ADULT 03/26/2018 JOSEE ESCOTO FACC, ALI FACP CCDS Ot Z79.82 PENITENTIARY (CURRENT) USE OF ASPIRIN 03/26/2018 JOSEE ESCOTO FACC, ALI FACP CCDS Ot Z79.899 OTHER STEAM SHOVELMAN (CURRENT) DRUG THERAPY 03/26/2018 JOSEE ESCOTO FACC, ALI FACP CCDS Ot Z82.49 FAMILY HX OF ISCHEM HEART DIS AND OTH DI 03/29/2018 JOSEE ESCOTO FACC, ALI FACP CCDS Ot E66.9 OBESITY, UNSPECIFIED 03/29/2018 JOSEE ESCOTO FACC, ALI FACP CCDS Ot E78.5 HYPERLIPIDEMIA, UNSPECIFIED 03/29/2018 JOSEE ESCOTO FACC, ALI FACP CCDS Ot I10 ESSENTIAL (PRIMARY) HYPERTENSION 03/29/2018 JOSEE ESCOTO FACC, ALI FACP CCDS Ot I73.9 PERIPHERAL VASCULAR DISEASE, UNSPECIFIED 03/29/2018 JOSEE ESCOTO FACC, ALI FACP CCDS Ot K21.9 GASTRO-ESOPHAGEAL REFLUX DISEASE WITHOUT 03/29/2018 JOSEE ESCOTO FACC, ALI FACP CCDS Ot R06.02 SHORTNESS OF BREATH 03/29/2018 JOSEE ESCOTO FACC, ALI FACP CCDS Ot R60.0 LOCALIZED EDEMA 03/29/2018 JOSEE ESCOTO FACC, ALI FACP CCDS Ot Z68.42 BODY MASS INDEX (BMI) 45.0-49.9, ADULT 03/29/2018 JOSEE ESCOTO FACC, ALI FACP CCDS Ot Z79.82 PENITENTIARY (CURRENT) USE OF ASPIRIN 03/29/2018 JOSEE ESCOTO FACC, ALI FACP CCDS Ot Z79.899 OTHER STEAM SHOVELMAN (CURRENT) DRUG THERAPY 03/29/2018 JOSEE ESCOTO FACC, ALI FACP CCDS Ot Z82.49 FAMILY HX OF ISCHEM HEART DIS AND OTH DI 04/02/2018 BAIMA, COURTNEY L PROPERTY SPECIALIST Ot E78.4 OTHER HYPERLIPIDEMIA 04/02/2018 BAIMA, COURTNEY L PROPERTY SPECIALIST Ot F17.200 NICOTINE DEPENDENCE, UNSPECIFIED, UNCOMP 04/02/2018 BAIMA, COURTNEY L PROPERTY SPECIALIST Ot I10 ESSENTIAL (PRIMARY) HYPERTENSION 04/02/2018 BAIMA, COURTNEY L PROPERTY SPECIALIST Ot I70.213 ATHSCL [place] ARTERIES OF [facility] W [facility] 04/05/2018 BAIMA, COURTNEY L PROPERTY SPECIALIST Ot E78.2 MIXED HYPERLIPIDEMIA 04/05/2018 BAIMA, COURTNEY L PROPERTY SPECIALIST Ot I10 ESSENTIAL (PRIMARY) HYPERTENSION 04/05/2018 BAIMA, COURTNEY L PROPERTY SPECIALIST Ot I65.23 OCCLUSION AND STENOSIS OF BILATERAL [place] 04/05/2018 BAIMA, COURTNEY L PROPERTY SPECIALIST Ot I70.213 ATHSCL [place] ARTERIES OF EXTRM W [facility] 04/05/2018 BAIMA, COURTNEY L PROPERTY SPECIALIST Ot R06.00 DYSPNEA, UNSPECIFIED 04/05/2018 BAIMA, COURTNEY L PROPERTY SPECIALIST Ot R60.0 LOCALIZED EDEMA 04/09/2018 BAIMA, COURTNEY L PROPERTY SPECIALIST Ot E78.4 OTHER HYPERLIPIDEMIA 04/09/2018 BAIMA, COURTNEY L PROPERTY SPECIALIST Ot F17.200 NICOTINE DEPENDENCE, UNSPECIFIED, UNCOMP 04/09/2018 BAIMA, COURTNEY L PROPERTY SPECIALIST Ot I10 ESSENTIAL (PRIMARY) HYPERTENSION 04/09/2018 BAICOURTNEY MOSS PROPERTY SPECIALIST Ot 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 04/18/2018 BAICOURTNEY MOSS L PROPERTY SPECIALIST Ot E78.2 MIXED HYPERLIPIDEMIA 04/18/2018 BAIAJAY COURTNEY L PROPERTY SPECIALIST Ot I10 ESSENTIAL (PRIMARY) HYPERTENSION 04/18/2018 BAICOURTNEY MOSS L PROPERTY SPECIALIST Ot I65.23 OCCLUSION AND STENOSIS OF BILATERAL [place] 04/18/2018 BAIAJAY COURTNEY L PROPERTY SPECIALIST Ot 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 04/18/2018 BAICOURTNEY MOSS PROPERTY SPECIALIST Ot R06.00 DYSPNEA, UNSPECIFIED 04/18/2018 BAICOURTNEY MOSS PROPERTY SPECIALIST Ot R60.0 LOCALIZED EDEMA 04/19/2018 JOSIAHNAKIARASHEED PROPERTY SPECIALIST Ot V76.12 OTH SCREEN MAMMO-MALIGN NEOPLASM OF SAMANTHA 04/19/2018 RASHEED RAHMAN PROPERTY SPECIALIST Ot V76.12 OTH SCREEN MAMMO-MALIGN NEOPLASM OF SAMANTHA 04/19/2018 SAMEERA ESCOTO, JAMIE Ot V72.84 EXAM PRE-OPERATIVE NOS 04/19/2018 NASEEM ESCOTO, SOSA Shelby Ot 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 PATELLAE 04/19/2018 SOSA ARZOLA MD Ot V72.84 EXAM PRE-OPERATIVE NOS 04/19/2018 NASEEM ESCOTO, SOSA Shelby Ot V74.8 SCREEN-BACTERIAL DIS NEC 04/19/2018 SOSA ARZOLA MD Ot 727.61 ROTATOR CUFF RUPTURE 04/19/2018 RYAN JONES MD Ot 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 04/19/2018 RYAN JONES MD Ot 788.30 UNSPECIFIED URINARY INCONTINENCE 04/19/2018 RYAN JONES MD Ot V72.84 EXAM PRE-OPERATIVE NOS 04/19/2018 RYAN JONES MD Ot V74.8 SCREEN-BACTERIAL DIS NEC 04/19/2018 MORAIMA NOEL DO Ot 719.46 JOINT PAIN-L/LEG 04/19/2018 MORAIMA NOEL DO Ot 724.2 LUMBAGO 04/19/2018 MORAIMA NOEL DO Ot 959.7 LOWER LEG INJURY NOS 04/19/2018 MORAIMA NOEL DO Ot E000.8 OTHER EXTERNAL CAUSE STATUS 04/19/2018 MORAIMA NOEL DO Ot E849.0 ACCIDENT IN HOME 04/19/2018 MORAIMA NOEL DO Ot E888.9 FALL NOS 04/19/2018 MORAIMA NOEL DO Ot 789.01 ABDOMINAL PAIN, RIGHT UPPER QUADRANT 04/19/2018 BERT HDEZ MORAIMA Moeller Ot 575.8 DIS OF GALLBLADDER NEC 04/19/2018 RUFINA ESCOTO, NARAYAN Marr Ot 575.8 DIS OF GALLBLADDER NEC 04/19/2018 RUFINA ESCOTO, NARAYAN Marr Ot V72.63 PRE-PROCEDURAL LABORATORY EXAMINATION 04/19/2018 RUFINA ESCOTO, NARAYAN Marr Ot V72.81 UFGX-IID-NVPUISREZ CARDIOVASCULAR 04/19/2018 RUFINA ESCOTO, NARAYAN Marr Ot V74.8 SCREEN-BACTERIAL DIS NEC 04/19/2018 NASEEM ESCOTO, SOSA Shelby Ot 715.31 LOC OSTEOARTH NOS-SHLDER 04/19/2018 NASEEM ESCOTO, SOSA Shelby Ot 727.61 ROTATOR CUFF RUPTURE 04/19/2018 NASEEM ESCOTO, SOSA Shelby Ot 840.7 (SLAP) SUPERIOR GLENOID LABRUM LESIONS 04/19/2018 NASEEM ESCOTO, SOSA Shelby Ot V72.83 EXAM PRE-OPERATIVE NEC 04/19/2018 Ot G56.02 CARPAL TUNNEL SYNDROME, LEFT UPPER LIMB 04/19/2018 Ot Z01.818 ENCOUNTER FOR OTHER PREPROCEDURAL EXAMIN 04/19/2018 Ot Z11.2 ENCOUNTER FOR SCREENING FOR OTHER BACTER 04/19/2018 RASHEED RAHMAN Ot Z12.31 ENCNTR SCREEN MAMMOGRAM FOR MALIGNANT NE 04/19/2018 BERT HDEZ MORAIMA Moeller Ot Z13.89 ENCOUNTER FOR SCREENING FOR OTHER DISORD 04/19/2018 NASEEM ESCOTO, SOSA Shelby Ot G56.01 CARPAL TUNNEL SYNDROME, RIGHT UPPER LIMB 04/19/2018 NASEEM ESCOTO, SOSA Shelby Ot Z01.818 ENCOUNTER FOR OTHER PREPROCEDURAL EXAMIN 04/19/2018 BERT HDEZMORAIMA Ot J40 BRONCHITIS, NOT SPECIFIED ACUTE OR CH 04/19/2018 BERT HDEZMORAIMA Ot J44.9 CHRONIC OBSTRUCTIVE PULMONARY DISEASE, U 04/19/2018 BERT HDEZ, MORAIMA A Ot N39.0 URINARY TRACT INFECTION, SITE NOT SPECIF 04/19/2018 DINO TILLMAN PROPERTY SPECIALIST Ot R22.31 LOCALIZED SWELLING, MASS AND LUMP, RIGHT 04/19/2018 RASHEED RAHMAN PROPERTY SPECIALIST Ot Z12.31 ENCNTR SCREEN MAMMOGRAM FOR MALIGNANT NE 04/19/2018 NASEEM ESCOTO, SOSA Shelby Ot M75.121 COMPLETE ROTATR-CUFF TEAR/RUPTR OF R JOSSY 04/19/2018 MEDARDO DUFFY MD Ot Z51.81 ENCOUNTER FOR THERAPEUTIC DRUG LEVEL MON 04/19/2018 MEDARDO DUFFY MD Ot Z79.899 OTHER PENITENTIARY (CURRENT) DRUG THERAPY 04/19/2018 MEDARDO DUFFY MD Ot Z12.31 ENCNTR SCREEN MAMMOGRAM FOR MALIGNANT NE 04/19/2018 PAMELA ESCOTO, JEN Zhong Ot M25.811 OTHER SPECIFIED JOINT DISORDERS, RIGHT S 04/19/2018 JOSEE ESCOTO FACC, ALI FACP CCDS Ot E78.4 OTHER HYPERLIPIDEMIA 04/19/2018 JOSEE ESCOTO FACC, ALI FACP CCDS Ot I10 ESSENTIAL (PRIMARY) HYPERTENSION 04/19/2018 JOSEE ESCOTO FACC, ALI FACP CCDS Ot J43.8 OTHER EMPHYSEMA 04/19/2018 JOSEE ESCOTO FACC, ALI FACP CCDS Ot R06.02 SHORTNESS OF BREATH 04/19/2018 JOSEE ESCOTO FACC, ALI FACP CCDS Ot Z72.0 TOBACCO USE 04/19/2018 SOSA RESENDIZ MD Ot 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 04/19/2018 SOSA RESENDIZ MD Ot T65.222D TOXIC EFFECT OF TOBACCO CIGARETTES, SELF 04/19/2018 SOSA RESENDIZ MD Ot 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 04/19/2018 SOSA RESENDIZ MD Ot T65.222D TOXIC EFFECT OF TOBACCO CIGARETTES, SELF 04/19/2018 COURTNEY HONG PROPERTY SPECIALIST Ot E78.4 OTHER HYPERLIPIDEMIA 04/19/2018 COURTNEY HONG PROPERTY SPECIALIST Ot F17.200 NICOTINE DEPENDENCE, UNSPECIFIED, UNCOMP 04/19/2018 COURTNEY HONG PROPERTY SPECIALIST Ot I10 ESSENTIAL (PRIMARY) HYPERTENSION 04/19/2018 COURTNEY HONG PROPERTY SPECIALIST Ot 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 04/19/2018 BAIMA, COURTNEY L PROPERTY SPECIALIST Ot E78.2 MIXED HYPERLIPIDEMIA 04/19/2018 BAIMA, COURTNEY L PROPERTY SPECIALIST Ot I10 ESSENTIAL (PRIMARY) HYPERTENSION 04/19/2018 BAIMA, COURTNEY L PROPERTY SPECIALIST Ot I65.23 OCCLUSION AND STENOSIS OF BILATERAL [place] 04/19/2018 BAIMA, COURTNEY L PROPERTY SPECIALIST Ot I70.213 ATHSCL EKWOK ARTERIES OF [facility] 04/19/2018 BAIMA, COURTNEY L PROPERTY SPECIALIST Ot R06.00 DYSPNEA, UNSPECIFIED 04/19/2018 BAIMA, COURTNEY L PROPERTY SPECIALIST Ot R60.0 LOCALIZED EDEMA 04/23/2018 BAIMA, COURTNEY L PROPERTY SPECIALIST Ot E78.2 MIXED HYPERLIPIDEMIA 04/23/2018 BAIMA, COURTNEY L PROPERTY SPECIALIST Ot I10 ESSENTIAL (PRIMARY) HYPERTENSION 04/23/2018 BAIMA, COURTNEY L PROPERTY SPECIALIST Ot I65.23 OCCLUSION AND STENOSIS OF BILATERAL [place] 04/23/2018 BAIMA, COURTNEY L PROPERTY SPECIALIST Ot I70.213 ATHSCL EKWOK ARTERIES OF [facility] 04/23/2018 BAIMA, COURTNEY L PROPERTY SPECIALIST Ot R06.09 OTHER FORMS OF DYSPNEA 04/23/2018 BAIMA, COURTNEY L PROPERTY SPECIALIST Ot R60.0 LOCALIZED EDEMA 05/01/2018 BAIMA, COURTNEY L PROPERTY SPECIALIST Ot E78.2 MIXED HYPERLIPIDEMIA 05/01/2018 BAIMA, COURTNEY L PROPERTY SPECIALIST Ot I10 ESSENTIAL (PRIMARY) HYPERTENSION 05/01/2018 BAIMA, COURTNEY L PROPERTY SPECIALIST Ot I65.23 OCCLUSION AND STENOSIS OF BILATERAL [place] 05/01/2018 BAIMA, COURTNEY L PROPERTY SPECIALIST Ot I70.213 ATHSCL EKWOK ARTERIES OF [facility] 05/01/2018 BAIMA, COURTNEY L PROPERTY SPECIALIST Ot R06.09 OTHER FORMS OF DYSPNEA 05/01/2018 BAIMA, COURTNEY L PROPERTY SPECIALIST Ot R60.0 LOCALIZED EDEMA Procedures Code Description Performed By Performed On 38.93 VENOUS CATHETERIZATION NEC 08/13/2011 81.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 10/23/2011 78316 XRAY KNEE RIGHT 1 OR 2 VIEWS 02/12/2013 Q0091 PAP SMEAR OBTAIN SMEAR 06/02/2013 45290 HEMOCCULT 06/02/2013 54318 PAP SMEAR 06/05/2013 36432 CULTURE WOUND (AEROBIC) 07/06/2013 15786 URINE DRUG SCREEN (IN-HOUSE ) 09/11/2013 12849 URINE METH/AMPHETAMINE GC/ MS 09/18/2013 84257 ROUTINE VENIPUNCTURE 11/17/2013 64865 CBC 11/17/2013 Orthopedi Naseem Sosa 11/20/2013 52219 HEMOCCULT 11/20/2013 54400 HEMOCCULT 11/20/2013 23869 XRAY KNEE LEFT, 1 OR 2 VIEWS 11/20/2013 56756 MAMMOGRAM, SCREENING 11/21/2013 22877 AMERITOX 11/21/2013 General S Darrel Love 11/21/2013 37559 ROUTINE VENIPUNCTURE 12/02/2013 47242 CBC 12/02/2013 5326603 GFR CALC (RESULT ONLY) 12/02/2013 44023 CMP 12/02/2013 90866 LIPID PANEL 12/02/2013 44456 XRAY FOOT LEFT COMP MIN 3 VIEWS 01/05/2014 Cardiolog Roger Tripp 01/05/2014 19751 XRAY FOOT RIGHT COMP MIN 3 VIEWS 01/05/2014 09161 UA W/ CULTURE IF INDICATED 01/05/2014 48778 CULTURE URINE 01/06/2014 94259 ROUTINE VENIPUNCTURE 03/19/2014 G0008 FLU ADMINISTRATION ( MEDICARE ONLY) 03/19/2014 02991 PULMONARY EDUCATION 03/19/2014 G0437 TOBACCO-USE SEISMIC PROSPECTING OBSERVER>10MIN 03/19/2014 9793529 GFR CALC (RESULT ONLY) 03/19/2014 86914 BMP 03/19/2014 11006 MAGNESIUM 03/19/2014 Physical Physical Therapy, [facility] 03/30/2014 24788 DEBRIDE NAIL >6 04/17/2014 30419 OXIMETRY 06/03/2014 21719 [employer] 07/08/2014 [id number] INSERTION OF INFUSION DEV INTO SUP VENA [...] 17:58 Bacteria identification in wound by culture [id number] NRG QUANTITY OF GROWTH Scant Growth NRG [...] identification in isolate by anaerobe culture NOANA NR Gram stain microscopy - 08/08/16 09:37 GRAM STAIN RESULT NO [facility]IA [facility] Bacteria identification in wound by culture - 08/08/16 09:37 Bacteria identification in wound by culture [id number] NR FREE TEXT EXTERNAL (NOT JK) NRG [...] FOR INFLUENZA A AND B ANTIGENS BY [facility] Complete blood count (CBC) with [...] 12.1 fL 7.5-12.5 ABSOLUTE NEUTROPHILS 4494 cells/uL 3300-3660 ABSOLUTE LYMPHOCYTES 1711 cells/uL 850-3900 ABSOLUTE MONOCYTES 767 cells/uL 200-950 ABSOLUTE EOSINOPHILS 99 cells/uL 15-500 ABSOLUTE BASOPHILS 28 cells/uL 0-200 NEUTROPHILS 63.3 % NRG LYMPHOCYTES 24.1 % NRG MONOCYTES 10.8 % NRG EOSINOPHILS 1.4 % NRG BASOPHILS 0.4 % NRG Automated blood complete blood count (hemogram) panel - 03/26/18 10:15 Blood leukocytes automated count (number/volume) 6.5 10*3/uL 4.3-11.0 Blood erythrocytes automated count (number/volume) 4.71 10*6/uL 4.35-5.85 Venous blood hemoglobin measurement (mass/volume) 13.8 g/dL 11.5-16.0 Blood hematocrit (volume fraction) 42 % 35-52 Automated erythrocyte mean corpuscular volume 89 [foz_us] 80-99 Automated erythrocyte mean corpuscular hemoglobin (mass per erythrocyte) 29 pg 25-34 Automated erythrocyte mean corpuscular hemoglobin concentration measurement ( mass/volume) 33 g/dL 32-36 Automated erythrocyte distribution width ratio 14.4 % 10.0-14.5 Automated blood platelet count (count/volume) 168 10*3/uL 130-400 Automated blood platelet mean volume measurement 10.9 [foz_us] 7.4-10.4 PT panel in platelet poor plasma by coagulation assay - 03/26/18 10:15 Prothrombin time (PT) in platelet poor plasma by coagulation assay 13.0 s 12.2-14.7 INR in platelet poor plasma or blood by coagulation assay 1.0 0.8-1.4 Activated partial thromboplastin time (aPTT) in platelet poor plasma bycoagulation assay - 03/26/18 10:15 Activated partial thromboplastin time (aPTT) in platelet poor plasma bycoagulation assay 28 s 24-35 Comprehensive metabolic panel - 03/26/18 10:15 Serum or plasma sodium measurement (moles/volume) 138 mmol/L 135-145 Serum or plasma potassium measurement (moles/volume) 4.3 mmol/L 3.6-5.0 Serum or plasma chloride measurement (moles/volume) 104 mmol/L 98-107 Carbon dioxide 24 mmol/L 21-32 Serum or plasma anion gap determination (moles/volume) 10 mmol/L 5-14 Serum or plasma urea nitrogen measurement (mass/volume) 18 mg/dL 7-18 Serum or plasma creatinine measurement (mass/volume) 0.88 mg/dL 0.60-1.30 Serum or plasma urea nitrogen/creatinine mass ratio 20 NRG Serum or plasma creatinine measurement with calculation of estimated glomerular filtration rate > NRG Serum or plasma glucose measurement (mass/volume) 95 mg/dL 70-105 Serum or plasma calcium measurement (mass/volume) 9.4 mg/dL 8.5-10.1 Serum or plasma total bilirubin measurement (mass/volume) 0.4 mg/dL 0.1-1.0 Serum or plasma alkaline phosphatase measurement (enzymatic activity/volume) 63 U/L 40-136 Serum or plasma aspartate aminotransferase measurement (enzymatic activity/ volume) 24 U/L 5-34 Serum or plasma alanine aminotransferase measurement (enzymatic activity/volume ) 21 U/L 0-55 Serum or plasma protein measurement (mass/volume) 7.4 g/dL 6.4-8.2 Serum or plasma albumin measurement (mass/volume) 3.9 g/dL 3.2-4.5 CALCIUM CORRECTED 9.5 mg/dL 8.5-10.1 Lipid 1996 panel - 03/26/18 10:15 Serum or plasma triglyceride measurement (mass/volume) 125 mg/dL <150 Serum or plasma cholesterol measurement (mass/volume) 152 mg/dL < 200 Serum or plasma cholesterol in HDL measurement (mass/volume) 44 mg/ dL 40-60 Cholesterol in LDL [mass/volume] in serum or plasma by direct assay 92 mg/dL 1-129 Serum or plasma cholesterol in VLDL measurement (mass/volume) 25 mg/ dL 5-40 Methicillin resistant Staphylococcus aureus (MRSA) screening culture - 10:15 Methicillin resistant Staphylococcus aureus (MRSA) screening culture NEG NRG Encounters ACCT No. Visit Date/Time Discharge Status Pt. Type Provider Facility Loc./Unit Complaint [id number] 07/06/2014 11:51:00 07/06/2014 23:59:59 CLS Outpatient RASHEED RAHMAN APRN [id number] 06/03/2014 10:36:00 06/03/2014 23:59:59 CLS Outpatient RASHEED RAHMAN APRN [id number] 06/03/2014 10:36:00 06/03/2014 23:59:59 CLS Outpatient RASHEED RAHMAN APRN [id number] 04/17/2014 10:45:00 04/17/2014 23:59:59 CLS Outpatient JACK YUAN DO [id number] 03/19/2014 11:26:00 03/19/2014 23:59:59 CLS Outpatient RASHEED RAHMAN APRN [id number] 01/22/2014 13:09:00 01/22/2014 23:59:59 CLS Outpatient ARIAS GRAJEDA MD [id number] 01/05/2014 09:23:00 01/05/2014 23:59:59 CLS Outpatient RASHEED RAHMAN APRN [id number] 01/05/2014 09:23:00 01/05/2014 23:59:59 CLS Outpatient RASHEED RAHMAN APRN [id number] 12/02/2013 11:14:00 12/02/2013 23:59:59 CLS Outpatient RASHEED RAHMAN APRN [id number] 11/20/2013 13:23:00 11/20/2013 23:59:59 CLS Outpatient JOSIAH COVARRUBIASNICOLA LockwoodA S [id number] 11/20/2013 13:23:00 11/20/2013 23:59:59 CLS Outpatient JOSIAHNICOLA PETER APRNA S [id number] 11/20/2013 12:59:00 11/20/2013 23:59:59 CLS Outpatient JACK YUAN DO [id number] 11/17/2013 10:47:00 11/17/2013 23:59:59 CLS Outpatient JACLYN PEDIATRIC ANESTHESIOLOGISTNANCY Lockwood [id number] 09/11/2013 08:36:00 09/11/2013 23:59:59 CLS Outpatient JOSIAH PEDIATRIC ANESTHESIOLOGISTNAKIARASHEED S [id number] 09/11/2013 08:36:00 09/11/2013 23:59:59 CLS Outpatient JOSIAH PEDIATRIC ANESTHESIOLOGISTNICOLAA S [id number] 09/04/2013 15:45:00 09/04/2013 23:59:59 CLS Outpatient JACK YUAN DO [id number] 08/15/2013 08:26:00 08/15/2013 23:59:59 CLS Outpatient AMINA MATTHEWS MD [id number] 07/10/2013 13:22:00 07/10/2013 23:59:59 CLS Outpatient JOSIAH PEDIATRIC ANESTHESIOLOGISTNICOLAA S [id number] 06/02/2013 09:17:00 06/02/2013 23:59:59 CLS Outpatient JOSIAH PEDIATRIC ANESTHESIOLOGISTNICOLAA S [id number] 06/02/2013 09:17:00 06/02/2013 23:59:59 CLS Outpatient JOSIAH PEDIATRIC ANESTHESIOLOGISTNICOLAA S [id number] 02/12/2013 13:47:00 02/12/2013 23:59:59 CLS Outpatient JOSIAH PEDIATRIC ANESTHESIOLOGISTNAKIARASHEED S [id number] 02/12/2013 13:47:00 02/12/2013 23:59:59 CLS Outpatient JOSIAH PEDIATRIC ANESTHESIOLOGISTNAKIARASHEED S [id number] 06/27/2012 09:44:00 06/27/2012 23:59:59 CLS Outpatient JOSIAH PEDIATRIC ANESTHESIOLOGISTNAKIARASHEED S [id number] 04/02/2012 09:21:00 04/02/2012 23:59:59 CLS Outpatient [id number] 04/02/2012 09:21:00 04/02/2012 23:59:59 CLS Outpatient RASHEED RAHMAN APRN [id number] 01/07/2013 09:53:00 Document Registration [id number] 10/15/2012 10:07:00 Document Registration [id number] 01/16/2018 16:20:00 01/16/2018 23:59:59 CLS Outpatient [facility]ENNINGS [facility]N [facility] [id number] 01/28/2018 09:40:00 Document Registration [id number] 12/28/2017 09:00:00 Document Registration [id number] 04/19/2018 10:58:00 04/19/2018 23:59:59 CLS Outpatient COURTNEY HONG L PROPERTY SPECIALIST [facility] CARD OCCUSION AND STENOSIS OF BILAT CAROTID ARTERIES [id number] 03/26/2018 08:36:00 03/26/2018 23:59:59 CLS Outpatient COURTNEY HONG L PROPERTY SPECIALIST [facility] RAD OCCLUSION AND STENOSIS OF BILAT CAROTID ARTERIES [id number] 03/26/2018 09:40:00 03/26/2018 16:00:00 DIS Outpatient JOSEE ESCOTO FACC, ROGER FACHeron CCDS [facility] CATH CLAUDICATION, SOB,BILAT LEG EDEMA [id number] 03/17/2018 10:55:00 03/17/2018 12:14:00 DIS Emergency JUANA GODWIN MD [facility] ER POSS ALLERGIC REACTION [id number] 03/05/2018 11:40:00 03/05/2018 23:59:59 CLS Outpatient COURTNEY HONG L PROPERTY SPECIALIST [facility] RAD I10 HTN [id number] 09/12/2017 08:19:00 11/09/2017 10:48:00 DIS Outpatient JEN SANTIAGO MD [facility] REHAB LT SHOULDER RCR [id number] 08/23/2017 08:00:00 08/27/2017 00:01:00 DIS Outpatient JEN SANTIAGO MD [facility] REHAB LT SHOULDER RCR [id number] 07/19/2017 16:27:00 07/19/2017 20:52:00 DIS Emergency GERMAN HENDERSON MD [facility] ER VOMITING, CANT EAT [id number] 05/28/2017 10:12:00 05/28/2017 23:59:59 CLS Outpatient SOSA RESENDIZ MD [facility] WOUNDCARE [id number] 05/21/2017 08:43:00 05/21/2017 23:59:59 CLS Outpatient SOSA RESENDIZ MD [facility] WOUNDCARE [id number] 05/10/2017 07:08:00 05/10/2017 23:59:59 CLS Outpatient JOSEE ESCOTO FACC, ROGER MARIE CCDS [facility] CARD R06.02 SOB [id number] 05/08/2017 09:13:00 05/08/2017 23:59:59 CLS Outpatient MEDARDO DUFFY MD [facility] RAD SCREENING [id number] 05/01/2017 08:15:00 05/01/2017 23:59:59 CLS Outpatient JEN SANTIAGO MD [facility] LAB PRE OP LABS [id number] 11/22/2016 11:00:00 11/22/2016 23:59:59 CLS Preadmit SOSA ARZOLA MD [facility] RAD SHOULDER JOINT PAIN M25.512 [id number] 10/25/2016 09:50:00 10/25/2016 23:59:59 CLS Outpatient MEDARDO DUFFY MD [facility] LAB Z79.899 [id number] 09/08/2016 08:23:00 09/08/2016 14:54:00 DIS Outpatient SOSA RESENDIZ MD [facility] WOUNDCARE [id number] 07/29/2016 07:42:00 07/29/2016 23:59:59 CLS Outpatient SOSA ARZOLA MD [facility] RAD COMPLETE ROTATOR CUFF TEAR OR RUPTURE [id number] 07/12/2016 18:16:00 07/15/2016 13:40:00 DIS Inpatient YAMILET SEGAL MD [facility] 4TH HYPOKALEMIA, NEUROTIC SKIN WOUND LEFT THIGH [id number] 04/12/2016 11:25:00 04/13/2016 16:00:00 DIS Inpatient LAURA ROBLERO MD [facility] ICU HYPOTENSION DIZZINESS ACUTE RENAL FAILURE [id number] 04/03/2016 09:24:00 04/03/2016 23:59:59 CLS Outpatient RASHEED RAHMAN [facility] RAD BREAST CANCER SCREENING [id number] 01/05/2016 10:45:00 02/21/2016 13:49:00 DIS Outpatient SOSA ARZOLA MD [facility] REHAB R SHOULDER SCOPE; BICEP TENOTOMY;DCE;SAD [id number] 01/12/2016 15:26:00 01/12/2016 23:59:59 CLS Outpatient DINO TILLMAN [facility] RAD R PROXIMAL FOREARM MAS [id number] 01/04/2016 09:53:00 01/04/2016 10:47:00 DIS Emergency LIBERTY SANDOVAL APRN [facility] ER BEE STING [id number] 12/27/2015 19:50:00 12/28/2015 05:30:00 DIS Outpatient RASHEED RAHMAN [facility] SLEEP SNORING,CHOKING/ GASPING,DAYTIME SLEEPINESS [id number] 12/08/2015 10:23:00 12/08/2015 15:32:00 DIS Outpatient SOSA ARZOLA MD [facility] SDC ARTHRITIS [id number] 11/25/2015 13:03:00 11/25/2015 13:32:00 DIS Outpatient SOSA ARZOLA MD [facility] PREOP ARTHRITIS [id number] 05/17/2015 10:40:00 05/17/2015 23:59:59 CLS Outpatient MORAIMA NOEL DO [facility] LAB INFECTION [id number] 04/30/2015 10:56:00 04/30/2015 23:59:59 CLS Outpatient MORAIMA NOEL DO [facility] RAD COPD,BRONCHITIS [id number] 04/21/2015 07:48:00 04/21/2015 11:40:00 DIS Outpatient SOSA ARZOLA MD [facility] SDC RIGHT CARPAL TUNNEL SYNDROME [id number] 04/12/2015 08:19:00 04/12/2015 23:59:59 CLS Outpatient SOSA ARZOLA MD [facility] PREOP RIGHT CARPAL TUNNEL RELEASE [id number] 03/30/2015 10:44:00 03/30/2015 23:59:59 CLS Outpatient MORAIMA NOEL DO [facility] LAB CHECK FOR DRUGS [id number] 03/24/2015 09:00:00 03/24/2015 13:15:00 DIS Outpatient SOSA ARZOLA MD [facility] LEFT CARPAL TUNNEL SYNDROME [id number] 03/19/2015 10:46:00 03/19/2015 23:59:59 CLS Outpatient RASHEED RAHMAN [facility] RAD SCREENING [id number] 02/10/2015 10:43:00 02/10/2015 11:26:00 DIS Outpatient SOSA ARZOLA MD [facility] REHAB L SHOULDER; BICEP TENOTOMY; OPEN RC REPAIR [id number] 01/13/2015 06:00:00 01/13/2015 10:55:00 DIS Outpatient SOSA ARZOLA MD [facility] LEFT SHOULDER SLAP TEAR; ROTATOR CUFF TEAR [id number] 01/07/2015 09:59:00 01/07/2015 23:59:59 CLS Outpatient SOSA ARZOLA MD [facility] PREOP LEFT SHOULDER SLAP TEAR; ROTATOR CUFF TEAR [id number] 11/11/2014 08:36:00 11/11/2014 13:50:00 DIS Outpatient NARAYAN ALMARAZ MD [facility] DYSKNESIA [id number] 11/06/2014 12:39:00 11/06/2014 23:59:59 CLS Outpatient NARAYAN ALMARAZ MD [facility] PREOP DYSKNESIA [id number] 10/29/2014 09:26:00 10/29/2014 23:59:59 CLS Outpatient MORAIMA NOEL DO [facility] CARD PAIN IN RIGHT UPPER QUADRANT [id number] 10/22/2014 08:21:00 10/22/2014 23:59:59 CLS Outpatient BERT HDEZ MORAIMA Sunni [facility] RAD RUQ PAIN [id number] 10/12/2014 10:02:00 10/12/2014 23:59:59 CLS Outpatient MAXIMUSLLOYD MORAIMA Sunni [facility] RAD FELL RT KNEE PAIN, LOWER BACK PAIN [id number] 09/23/2014 06:00:00 09/23/2014 10:20:00 DIS Outpatient RYAN JONES MD [facility] INTRINSIC SPHINCTER DEFICIENCY; INCONTINENCE [id number] 09/16/2014 10:27:00 09/16/2014 23:59:59 CLS Outpatient RYAN JONES MD [facility] PREOP INTRINSIC SPHINCTER DEFICIENCY; INCONTINENCE [id number] 07/28/2014 09:04:00 07/28/2014 23:59:59 CLS Outpatient SOSA ARZOLA MD [facility] RAD LEFT SHOULDER RTC [id number] 04/10/2014 14:46:00 04/10/2014 15:58:00 DIS Emergency LIBERTY SANDOVAL APRN [facility] ER FEVER, SOA, DIARRHEA [id number] 04/07/2014 13:56:00 04/07/2014 17:00:00 DIS Outpatient RASHEED RAHMAN [facility] REHAB KNEE PAIN [id number] 03/04/2014 06:00:00 03/04/2014 10:10:00 DIS Outpatient SOSA ARZOLA MD [facility] SDC LEFT KNEE CHONDROMALASIA [id number] 02/27/2014 11:49:00 02/27/2014 23:59:59 CLS Outpatient SOSA ARZOLA MD [facility] PREOP LEFT KNEE CHONDROMALASIA [id number] 02/10/2014 09:42:00 02/10/2014 17:00:00 DIS Outpatient ROGER TRIPP MD, FACC, FACP CCDS [facility] CATH ANGINA SOB DIZZINESS [id number] 02/03/2014 09:43:00 02/03/2014 23:59:59 CLS Outpatient RASHEED RAHMAN [facility] RAD SCREENING [id number] 01/30/2014 08:46:00 01/30/2014 23:59:59 CLS Outpatient JAMIE LOVE MD [facility] SDC RECTAL BLEEDING [id number] 01/29/2014 09:11:00 01/29/2014 23:59:59 CLS Outpatient JAMIE LOVE MD [facility] PREOP RECTAL BLEEDING [id number] 10/15/2013 08:45:00 10/31/2013 12:22:00 DIS Outpatient DINO TILLMAN PROPERTY SPECIALIST [facility] REHAB B LE WEAKNESS;S/P R TKA ;SEVERE L DJD [id number] 01/09/2013 11:24:00 01/09/2013 23:59:59 CLS Outpatient RASHEED RAHMAN [facility] RAD SCREENING [id number] 05/22/2018 14:26:00 PEN Preadmit JEN SANTIAGO MD [facility] REHAB S/P SHOULDER SURGERY [id number] 03/17/2015 09:34:00 Document Registration [id number] 07/27/2014 13:00:00 Document Registration [id number] 01/15/2012 10:47:00 Document Registration [id number] 10/23/2011 05:44:00 Document Registration [id number] 10/20/2011 09:40:00 Document Registration [id number] 08/12/2011 21:58:00 Document Registration [id number] 05/12/2010 11:10:00 Document Registration [email or web address] 03/19/2015 10:47:36 ACT Document Registration
--- NOTE | 2018-05-19 12:12 | Diagnostic Imaging Report ---
PROCEDURE: CT abdomen and pelvis without contrast. TECHNIQUE: Multiple contiguous axial images were obtained through the abdomen and pelvis without the use of intravenous contrast. DATE: May 19, 2018. COMPARISON: CT abdomen and pelvis August 12, 2011. INDICATION: 58-year-old female, cough and diarrhea. FINDINGS: There are limitations for evaluation of the abdominal organs, neoplastic processes, abscess, and limited evaluation of the vasculature relating to the lack of intravenous contrast. There is mild dependent atelectasis in the lung bases. The heart is not enlarged. There is no pericardial effusion. The liver is normal in size and contour. The gallbladder is not seen and may be surgically absent. There is no intrahepatic or extrahepatic bile duct dilation. The main pancreatic duct is not abnormally dilated. Unremarkable appearance of the pancreatic parenchyma. The spleen is not enlarged. The adrenal glands are unremarkable. Unremarkable appearance of the renal parenchyma. Urinary collecting systems are not distended. There is no identified renal or ureteral stone. The urinary bladder is collapsed and not well evaluated. The uterus is not seen and may be surgically absent. The intestinal tract is not distended. There is no imaging finding to suggest acute appendicitis. There is no free intraperitoneal air. There is no drainable fluid collection. There is no free pelvic fluid. There are atherosclerotic calcifications. There is no identified abnormally enlarged lymph node within the abdomen or pelvis which meets CT size criteria for adenopathy. There is no identified acute bony abnormality. There are degenerative changes of the spine. IMPRESSION: CT ABDOMEN AND PELVIS. 1. No identified acute abnormality within the abdomen or pelvis. Dictated by: Dictated on workstation # [id number]
[2018-05-19] MEDS ORDERED: LACTATED RINGERS 1,000 ML IV SCH (12:45)
[2018-05-19 12:59] LABS: ALANINE AMINOTRANSFERASE 18 U/L (0-55); ALBUMIN 3.6 GM/DL (3.2-4.5); ALKALINE PHOSPHATASE 65 U/L (40-136); BILIRUBIN,TOTAL 0.3 MG/DL (0.1-1.0); BUN/CREATININE RATIO 24; CALCIUM 8.6 MG/DL (8.5-10.1); CARBON DIOXIDE 19 MMOL/L (21-32); CHLORIDE 109 MMOL/L (98-107); CREATININE SERUM 0.91 MG/DL (0.60-1.30); GFR ESTIMATED > 60; GLUCOSE 94 MG/DL (70-105); LIPASE 12 U/L (8-78); POTASSIUM 4.8 MMOL/L (3.6-5.0); SODIUM 139 MMOL/L (135-145); TOTAL PROTEIN 6.7 GM/DL (6.4-8.2)
[2018-05-19] MEDS ORDERED: DIPHENOXYLATE/ATROPINE 2.5MG/0.025MG (LOMOTIL) TAB PO PRN (13:30)
[2018-05-19 14:04] LABS: BILIRUBIN,URINE NEGATIVE (NEGATIVE); CLARITY,URINE SLIGHTLY CLOUDY; COLOR,URINE YELLOW; GLUCOSE, URINE (UA) NEGATIVE (NEGATIVE); KETONES,URINE NEGATIVE (NEGATIVE); LEUKOCYTE ESTERASE ,URINE NEGATIVE (NEGATIVE); NITRITE,URINE NEGATIVE (NEGATIVE); PH,URINE 6.5 (5-9); PROTEIN,URINE NEGATIVE (NEGATIVE); UROBILINOGEN,URINE NORMAL (NORMAL)
[2018-05-19 14:13] LABS: BACTERIA,URINE NEGATIVE /HPF
[2018-05-19 14:27] VITALS: BP 108/55
== END 2018-05-19 14:27 | disposition home or self-care (01) ==
LOC: EDUNIT# 10:55 → ER 10:58
DX: R11.2 Nausea with vomiting, unspecified (principal); R19.7 Diarrhea, unspecified; J44.9 Chronic obstructive pulmonary disease, unspecified; G47.30 Sleep apnea, unspecified; I10 Essential (primary) hypertension; E78.00 Pure hypercholesterolemia, unspecified; K21.9 Gastro-esophageal reflux disease without esophagitis; F41.9 Anxiety disorder, unspecified; Z87.448 Personal history of other diseases of urinary system; Z88.5 Allergy status to narcotic agent; Z88.2 Allergy status to sulfonamides; Z88.8 Allergy status to other drugs, medicaments and biological substances; Z79.52 Long term (current) use of systemic steroids; Z79.82 Long term (current) use of aspirin; Z96.651 Presence of right artificial knee joint; Z95.9 Presence of cardiac and vascular implant and graft, unspecified; Z90.710 Acquired absence of both cervix and uterus
CPT/HCPCS: 36415; 51702; 74176; 80053; 81000; 83690; 85025

== ENCOUNTER → 2018-05-28 | Outpatient (CLI) | payer MEDICARE, MEDICAID ==
--- NOTE | 2018-05-28 13:45 | Diagnostic Imaging Report ---
INDICATION: Routine screening. COMPARISON: Comparison is made with prior mammograms from 05/08/2017 and 04/03/2016. TECHNIQUE: 2D and 3D bilateral screening mammography was performed with computer-aided detection (CAD) system. FINDINGS: Scattered fibroglandular densities are identified bilaterally. The overall parenchymal pattern is stable. No dominant mass or malignant-appearing microcalcifications are seen. There are benign calcifications bilaterally. Axillae are unremarkable. IMPRESSION: No mammographic features suspicious for malignancy are identified. ACR BI-RADS Category 2: Benign findings. Result letter will be mailed to the patient. Note: At least 10% of breast cancer is not imaged by mammography. Dictated by: Dictated on workstation # [id number]
== END ==
LOC: RAD 09:00
PROVIDERS: ATTEND Nurse Practitioner Family
DX: Z12.31 Encounter for screening mammogram for malignant neoplasm of breast (principal)
CPT/HCPCS: 77067

== ENCOUNTER 2018-06-06 09:20 | Outpatient (RCR) | payer MEDICARE, MEDICAID | END 2018-06-10 16:20 | disposition home or self-care (01) | PROVIDERS: ATTEND Orthopaedic Surgery | DX: Z47.89 Encounter for other orthopedic aftercare (principal); M25.512 Pain in left shoulder ==

== ENCOUNTER 2018-07-03 11:28 | Outpatient (RCR) | payer MEDICARE, MEDICAID | END 2018-07-03 12:13 | disposition home or self-care (01) | PROVIDERS: ATTEND Orthopaedic Surgery | DX: Z47.89 Encounter for other orthopedic aftercare (principal); M25.512 Pain in left shoulder ==

== ENCOUNTER → 2018-07-15 | Outpatient (CLI) | payer MEDICARE, MEDICAID ==
[~2018-07-15] MED LIST changes: +CATHETER FLUSH 10 ML SYR IV PRN; +IOHEXOL 350 MG/ML 100 ML (OMNIPAQUE 350) VIAL IV ONE; +NS 100 ML (IVPB) BAG IV ONE; +RECEIVED CONTRAST (Hold Metformin) IV SCH
[2018-07-15 12:01] LABS: BUN/CREATININE RATIO 16; CREATININE SERUM 0.82 MG/DL (0.60-1.30); GFR ESTIMATED > 60
--- NOTE | 2018-07-15 12:42 | Diagnostic Imaging Report ---
PROCEDURE: CT chest with contrast only. TECHNIQUE: Multiple contiguous axial images were obtained through the chest after administration of intravenous contrast. INDICATION: Shortness of air in tobacco user. COMPARISON: No prior CT chest studies are available for comparison. FINDINGS: No axillary lymphadenopathy is seen. Small lymph nodes in the mediastinum and jian are noted but no pathologically enlarged nodes are seen. No pericardial or pleural fluid is identified. Parenchymal evaluation does show a 5 mm noncalcified nodule in the left upper lobe, image #25 laterally located. This is indeterminate. Tiny subpleural nodule right middle lobe laterally is noted, image #36 measuring 3 mm. Right lower lobe nodular density adjacent to the major fissure is seen on image #32 measuring 5 mm. No other masses or infiltrates are detected. Upper abdomen is unremarkable. IMPRESSION: 1. No evidence of thoracic lymphadenopathy. There are several tiny nodular densities in both lungs, described above and indeterminate. Close followup is recommended with repeat CT chest in 3-6 months to confirm stability. Dictated by: Dictated on workstation # [id number]
== END ==
LOC: RAD 11:27
PROVIDERS: ATTEND Nurse Practitioner Family
DX: R91.8 Other nonspecific abnormal finding of lung field (principal); J44.9 Chronic obstructive pulmonary disease, unspecified; G47.50 Parasomnia, unspecified; E66.09 Other obesity due to excess calories; R29.818 Other symptoms and signs involving the nervous system; Z72.0 Tobacco use
CPT/HCPCS: 36415; 71260; 82565; 84520

== ENCOUNTER → 2018-07-26 | Outpatient (CLI) | payer MEDICARE, MEDICAID ==
[~2018-07-26] MED LIST changes: -CATHETER FLUSH 10 ML SYR IV PRN; -IOHEXOL 350 MG/ML 100 ML (OMNIPAQUE 350) VIAL IV ONE; -NS 100 ML (IVPB) BAG IV ONE; -RECEIVED CONTRAST (Hold Metformin) IV SCH; +RT-ALBUTEROL SULF 2.5 MG/3 ML PRE-MIX VIAL INH ONE
== END ==
LOC: RT 12:52
PROVIDERS: ATTEND Nurse Practitioner Family
DX: J43.8 Other emphysema (principal); R06.02 Shortness of breath; E66.09 Other obesity due to excess calories; G47.50 Parasomnia, unspecified; G47.10 Hypersomnia, unspecified; Z72.0 Tobacco use
CPT/HCPCS: 94060; 94726; 94729

== ENCOUNTER 2018-07-27 19:07 | Outpatient (CLI) | payer MEDICARE, MEDICAID ==
[~2018-07-27 19:07] MED LIST changes: -RT-ALBUTEROL SULF 2.5 MG/3 ML PRE-MIX VIAL INH ONE
== END 2018-07-28 06:04 | disposition home or self-care (01) ==
LOC: SLEEP 19:07
PROVIDERS: ATTEND Nurse Practitioner Family
DX: G47.10 Hypersomnia, unspecified (principal); G47.50 Parasomnia, unspecified; R06.02 Shortness of breath; E66.09 Other obesity due to excess calories; J43.8 Other emphysema; Z72.0 Tobacco use
CPT/HCPCS: 95811

== ENCOUNTER → 2018-07-29 | Outpatient (CLI) | payer MEDICARE, MEDICAID ==
[2018-07-29 10:51] LABS: ABG BASE EXCESS 2.5 MMOL/L (-2.5-2.5); ABG OXYGEN SATURATION 93 % (94-100); ABG PCO2 44 MMHG (35-45); ABG PO2 61 MMHG (79-93); ABG TCO2 28.4 MMOL/L (21.0-31.0)
[2018-07-29 10:52] LABS: ALLENS TEST YES-POS; INSPIRED O2 ROOM AIR; PATIENT TEMP 97.6; VENTILATOR NO
== END ==
LOC: LAB 10:19
PROVIDERS: ATTEND Nurse Practitioner Family
DX: J44.9 Chronic obstructive pulmonary disease, unspecified (principal); R06.02 Shortness of breath; G47.33 Obstructive sleep apnea (adult) (pediatric); G47.10 Hypersomnia, unspecified; G47.50 Parasomnia, unspecified; E66.9 Obesity, unspecified; Z68.42 Body mass index [BMI] 45.0-49.9, adult; Z72.0 Tobacco use
CPT/HCPCS: 36600; 82805

== ENCOUNTER 2018-08-26 09:05 | Outpatient (RCR) | payer MEDICAID, MEDICARE ==
[2018-09-17 12:53] VITALS: BP 120/60
[2018-09-17 13:37] VITALS: BP 115/60
[2018-09-19 13:00] VITALS: BP 120/60
[2018-09-19 14:00] VITALS: BP 125/60
[2018-09-26 13:00] VITALS: BP 120/60
[2018-10-01 13:00] VITALS: BP 100/70
[2018-10-01 14:00] VITALS: BP 138/60
[2018-10-08 13:00] VITALS: BP 120/60
[2018-10-08 14:00] VITALS: BP 130/60
[2018-10-10 13:00] VITALS: BP 114/68
[2018-10-10 14:00] VITALS: BP 98/70
[2018-10-29 12:20] VITALS: BP 124/70
[2018-10-29 13:19] VITALS: BP 136/60
== END 2018-11-24 | disposition home or self-care (01) ==
LOC: RT 09:05
PROVIDERS: ATTEND Nurse Practitioner Family
DX: J44.9 Chronic obstructive pulmonary disease, unspecified (principal); R06.02 Shortness of breath; G47.10 Hypersomnia, unspecified; G47.50 Parasomnia, unspecified; G47.33 Obstructive sleep apnea (adult) (pediatric); E66.9 Obesity, unspecified; Z68.42 Body mass index [BMI] 45.0-49.9, adult; Z72.0 Tobacco use
CPT/HCPCS: 99211

== ENCOUNTER → 2018-10-21 | Outpatient (CLI) | payer MEDICARE, MEDICAID ==
--- NOTE | 2018-10-21 12:33 | Diagnostic Imaging Report ---
PROCEDURE: CT chest without contrast. TECHNIQUE: Multiple contiguous axial images were obtained through the chest without the use of intravenous contrast. Auto Exposure Controls were utilized during the CT exam to meet ALARA standards for radiation dose reduction. INDICATION: COPD, cough, and shortness of air. COMPARISON: Correlation is made with prior CT chest from 07/15/2018. FINDINGS: No axillary lymphadenopathy is seen. Hilar and mediastinal evaluation is limited without intravenous contrast. No pericardial or pleural fluid is identified. Centrilobular emphysematous change is again noted. The left upper lobe nodule previously seen is stable at approximately 5 mm, image 18. Tiny subpleural nodule in the lateral aspect of the right middle lobe is stable, image 24. Tiny nodule in the region of the major fissure on the right appears stable. No new parenchymal nodule is seen. Upper abdomen is unremarkable. IMPRESSION: Stable noncontrast CT chest when compared with exam from 07/15/2018. Previously noted nodules are stable. Followup at 6-12 months could be performed to confirm stability. Dictated by: Dictated on workstation # [id number]
== END ==
LOC: RAD 11:02
PROVIDERS: ATTEND Nurse Practitioner Family
DX: J44.9 Chronic obstructive pulmonary disease, unspecified (principal); G47.33 Obstructive sleep apnea (adult) (pediatric); G47.10 Hypersomnia, unspecified; E66.09 Other obesity due to excess calories; G47.50 Parasomnia, unspecified; R91.1 Solitary pulmonary nodule; Z72.0 Tobacco use
CPT/HCPCS: 71250

== ENCOUNTER → 2018-11-28 | Outpatient (CLI) | payer MEDICARE, MEDICAID ==
[~2018-11-28] MED LIST changes: +BARIUM SUSPENSION 105% (LIQUID POLIBAR PLUS) 240 ML/DOSE PO ONE; +BARIUM SUSPENSION 60% (LIQUID EZ PAQUE) 240 ML DOSE PO ONE
--- NOTE | 2018-11-28 11:16 | Diagnostic Imaging Report ---
Indication: Difficulty swallowing all meals with occasional choking episodes for the last 2 months. Patient ingested effervescent crystals as well as thin and thick barium and imaging of the esophagus was performed. One minute and 22 seconds of fluoroscopic time was utilized. The preliminary radiograph of the chest is unremarkable. The esophagus has a smooth contour. No mass or stricture is identified. No gastroesophageal reflux was seen. There is a very small sliding-type hiatal hernia. Images of the stomach are unremarkable. Impression: Small sliding-type hiatal hernia. The study is otherwise unremarkable. Dictated by: Dictated on workstation # [id number]
== END ==
LOC: RAD 08:52
PROVIDERS: ATTEND Nurse Practitioner Community Health
DX: K44.9 Diaphragmatic hernia without obstruction or gangrene (principal)
CPT/HCPCS: 74220

== ENCOUNTER 2019-01-13 10:02 | Inpatient (IN) | payer MEDICARE, MEDICAID ==
[~2019-01-13] VITALS: Ht 160 cm; Wt 144.0 kg
[~2019-01-13 10:02] MED LIST changes: -BARIUM SUSPENSION 105% (LIQUID POLIBAR PLUS) 240 ML/DOSE PO ONE; -BARIUM SUSPENSION 60% (LIQUID EZ PAQUE) 240 ML DOSE PO ONE
--- OUTSIDE RECORDS SUMMARY | 2019-01-13 10:07 | XMS REPORT | Clinical Summary ---
Author Author [facility] Organization [facility] Address Unknown Phone Unavailable Care Team Providers Care Caustic Operator Name Role Phone Sayra Nickerson MD Unavailable Margot Nguyen MD Unavailable Sonya Rodriguez RN Unavailable Unavailable Winston De Santiago DO PCP Kenna Owens RN Unavailable Unavailable Nikki Sorensen RN Unavailable Unavailable Source Comments Some departments are not documenting in the electronic medical record. If you d o not see the information that you expected, contact Release of Information in [facility] [employer] Information Management department at [phone] for further assistan ce in locating additional records.[facility] Allergies Comments Active Allergy Reactions Severity Noted [...] Ready to Quit: No; Counseling Given: Yes Drinks/Week oz/Week Comments Alcohol Use 1 Cans of beer 0.6 Yes Sex Assigned at Date Recorded Not on file Industry Job Start Date Occupation Not on file Not on file Not on file Travel End Travel History Travel Start No recent travel history available. Last Filed Vital Signs Reading Time Taken Comments Vital Sign 128/75 04/13/2015 12:05 PM AMORTIZATION CLERK Blood Pressure 81 04/13/2015 12:05 PM AMORTIZATION CLERK Pulse 36.5 C (97.7 F) 04/13/2015 12:05 PM AMORTIZATION CLERK Temperature 16 03/22/2015 3:32 PM CDT Respiratory Rate 96% 04/13/2015 12:05 PM AMORTIZATION CLERK Oxygen Saturation - - Inhaled Oxygen Concentration 115 kg (253 lb 8.5 oz) 04/13/2015 9:11 AM AMORTIZATION CLERK Weight 162.6 cm (5' 4") 04/13/2015 9:11 AM AMORTIZATION CLERK Height 43.52 04/13/2015 9:11 AM AMORTIZATION CLERK Body Mass Index Plan of Treatment Health Maintenance Due Date Last Done Comments HEPATITIS C SCREENING 1962 PHYSICAL (COMPREHENSIVE) 1969 EXAM HIV SCREENING 1977 DTAP/TDAP VACCINES (1 - 1980 Tdap) CERVICAL CANCER SCREENING 1992 BREAST CANCER SCREENING 2002 COLORECTAL CANCER 2012 SCREENING SHINGLES RECOMBINANT 2012 VACCINE (1 of 2) INFLUENZA VACCINE 2019 Results Not on filefrom Last 3 Months Insurance Type Payer Benefit Subscriber ID Effective Phone Address Plan / Dates Group Medicare MEDICARE MEDICARE xxxxxxxxxx [id number] PART A AND resent B [facility]/HO xxxxxxxxxx 2014-P MD resent HEALTH/SNF /DETENTION Advance Directives 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
--- OUTSIDE RECORDS SUMMARY | 2019-01-13 10:09 | XMS REPORT ---
Author Author Migration, Doctor Organization [facility] Address Unknown Phone Unavailable Care Team Providers Care Merchandising Assistant Name Role Phone Migration, Doctor Unavailable Unavailable PROBLEMS Type Condition ICD9-CM Code LVN07-AI Code Onset Dates Condition Status SNOMED Code Problem MRSA (methicillin resistant staph aureus) culture positive Z22.322 Active 342697222 Problem History of illicit drug use Z87.898 Active 826210303 Problem Snoring R06.83 Active 57962069 Problem Dysthymic disorder F34.1 Active 65233243 Problem Impaired circulation I99.9 Active 04966560 Problem 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 Active 89356535 Problem Major depressive disorder, recurrent episode, moderate F33.1 Active 641893163 Problem Mild persistent asthma without complication J45.30 Active 609551530 Problem Fatigue R53.83 Active 31210956 Problem Other chronic pain G89.29 Active 43254094 Problem Upper respiratory tract infection, unspecified type J06.9 Active 06743354 Problem On home oxygen therapy Z99.81 Active 956084176771 Problem Mild chronic obstructive pulmonary disease J44.9 Active 830028954 Problem Neuropathy G62.9 Active 578808875 Problem Essential hypertension I10 Active 16605809 Problem COPD exacerbation J44.1 Active 630774534 Problem COPD (chronic obstructive pulmonary disease) with chronic bronchitis J44.9 Active 303508710 Problem Exertional asthma J45.990 Active 35710014 Problem Swallowing problem R13.10 Active 070352704 Problem Agoraphobia F40.00 Active 19344246 Problem Hypertension, benign I10 Active 69328680 Problem Panic disorder without agoraphobia F41.0 Active 26555146 Problem Varicose veins of both lower extremities I83.93 Active 88406843 Problem 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 853285236 Problem Arthritis M19.90 Active 2172470 Problem Mood disorder F39 Active 04361986 Problem Psychotic disorder F29 Active 64885714 ALLERGIES No Information ENCOUNTERS Encounter Location Date Diagnosis [facility] [address], [place] [address] Feb, [facility] [address], [place] [address] Jan, [facility] [address], [place] [address] Dec, [facility] [address] [place] [address] Dec, [facility] [address], [place] [address] Dec, Morbid obesity E66.01 [facility] [address], [place] [address] Dec, Major depressive disorder, recurrent episode, moderate F33.1 and Panic disorder without agoraphobia F41.0 [facility] [address], [place] [address] Dec, [facility] [address], [place] [address] Dec, Major depressive disorder, recurrent episode, moderate F33.1 [facility] [address], [place] [address] Nov, Major depressive disorder, recurrent episode, moderate F33.1 ; Panic disorder without agoraphobia F41.0 and Morbid obesity E66.01 [facility] [address], [place] [address] Nov, Morbid obesity E66.01 [facility] [id number] [address] Nov, Major depressive disorder, recurrent episode, moderate F33.1 and Panic disorder without agoraphobia F41.0 [facility] [id number] [address] Nov, Allergic reaction, initial encounter T78.40XA and Morbid obesity E66.01 [place] [address] [id number] [place] [address] 18 Nov, 2018 [place] [address] [address] Nov, Morbid obesity E66.01 ; Swallowing problem R13.10 and Hypertension, benign I10 [facility] [address] [address] Nov, Morbid obesity E66.01 ; COPD exacerbation J44.1 and Non-recurrent acute suppurative otitis media of left ear without spontaneous rupture of tympanic membrane H66.002 [place] [address] [address] Nov, Onychomycosis B35.1 ; Neuropathy G62.9 and Fissure in skin of foot R23.4 [place] [address] [address] October, Major depressive disorder, recurrent episode, moderate F33.1 ; Panic disorder without agoraphobia F41.0 and Morbid obesity E66.01 [facility] [id number] [place] [address] October, Viral upper respiratory tract infection J06.9 [place] [id number] [place] [address] October, [place] [id number] [place] [address] October, Major depressive disorder, recurrent episode, moderate F33.1 and Panic disorder without agoraphobia F41.0 [place] [id number] [place] [address] October, [place] [id number] [place] [address] October, [place] [id number] [place] [address] October, [facility] [address], [place] [address] October, [facility] [id number] [place] [address] October, [facility] [address] [place] [address] October, [facility] [id number] [place] [address] October, Major depressive disorder, recurrent episode, moderate F33.1 and Panic disorder without agoraphobia F41.0 [facility] [id number] [place] [address] Sep, Morbid obesity E66.01 and Lumbar neuritis M54.16 [facility] [id number] [place] [address] Sep, Panic disorder without agoraphobia F41.0 and Major depressive disorder, recurrent episode, moderate F33.1 [facility] [address] [place] [address] Sep, Gastroenteritis K52.9 ; Low back pain M54.5 ; Other chronic pain G89.29 and Morbid obesity E66.01 [facility] [address] [place] [address] Sep, Major depressive disorder, recurrent episode, moderate F33.1 ; Panic disorder without agoraphobia F41.0 and 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 [facility] [address] [place] [address] Sep, Panic disorder without agoraphobia F41.0 [facility] [id number] [place] [address] Sep, Panic disorder without agoraphobia F41.0 [facility] [address] [place] [address] Aug, Panic disorder without agoraphobia F41.0 ; Major depressive disorder, recurrent episode, moderate F33.1 ; 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 ; Psychotic disorder F29 ; Tardive dyskinesia G24.01 and Morbid obesity E66.01 [place] [id number] [place] [address] Aug, Dysthymic disorder F34.1 and Psychotic disorder F29 [place] [address] [address] Aug, Encounter for Medicare annual wellness exam Z00.00 ; Morbid obesity E66.01 and 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 [place] [address] [address] Aug, Dysthymic disorder F34.1 and Psychotic disorder F29 [address] [address] Aug, Neuropathy G62.9 ; Onychomycosis B35.1 and Xerosis of skin L85.3 [place] [address] [address] Jul, [place] [address] [address] Jul, Mood disorder F39 ; Wheezing R06.2 ; Choking, initial encounter T17.308A and Coughing R05 [address] [address] Jul, Low back pain M54.5 [facility] [address] [address] Jun, Flu-like symptoms R68.89 ; BMI 45.0-49.9, adult Z68.42 ; COPD exacerbation J44.1 and Acute bronchitis J20.[address] [address] Jun, [place] [address] [address] May, [place] [address] [address] May, Onychomycosis B35.1 and 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 [place] [address] [address] May, Low back pain M54.5 and Edema leg R60.0 [place] [address] [address] May, BMI 45.0-49.9, adult Z68.42 ; Well woman exam with routine gynecological exam Z01.419 and Breast cancer screening Z12.[address] [address] Apr, Arthritis M19.90 [place] [address] [address] 16 Apr, 2018 Arthritis M19.90 and Otalgia of both ears H92.03 [place] [address] [address] Feb, [place] [address] [address] 28 Feb, 2018 Low back pain M54.5 ; Other chronic pain G89.29 ; Exertional asthma J45.990 and Encounter for immunization Z23 [place] [address] [address] Feb, Skin fissures R23.4 ; Neuropathy G62.9 and Onychomycosis B35.1 [place] [address] [address] 05 Feb, 2018 Dysthymic disorder F34.1 [place] [address] [address] 04 Feb, 2018 [place] [id number] [place] [address] Jan, [place] [address] [address] Jan, Abrasion of right elbow, initial encounter S50.311A ; Abrasion, right knee, initial encounter S80.211A and Sprain of other ligament of right ankle, initial encounter S93.491A [place] [address] [address] Jan, [facility] [id number] [place] [address] Jan, Injury of left ankle, initial encounter S99.912A ; Fall down stairs, initial encounter W10.8XXA and BMI 45.0-49.9, adult Z68.42 [place] [address] [address] Jan, COPD exacerbation J44.1 [place] [address] [address] Jan, Dysfunction of both eustachian 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 [place] [id number] [place] [address] Jan, Bronchitis J40 and Acute suppurative otitis media of left ear without spontaneous rupture of tympanic membrane, recurrence not specified H66.002 [place] [id number] [place] [address] Jan, [place] [id number] [place] [address] Jan, Bronchitis J40 and BMI 40.0-44.9, adult Z68.41 [place] [id number] [place] [address] Jan, [place] [id number] [place] [address] Dec, Gastric pain R10.9 [place] [id number] [place] [address] Dec, [place] [id number] [place] [address] Dec, History of illicit drug use Z87.898 ; Neuropathy G62.9 ; COPD (chronic obstructive pulmonary disease) with chronic bronchitis J44.9 and Acute pain of right knee M25.561 [place] [address] [address] Nov, [place] [id number] [place] [address] Nov, Onychomycosis B35.1 and Contusion of left foot, subsequent encounter S90.32XD [place] [id number] [place] [address] Nov, COPD exacerbation J44.1 [place] [id number] [place] [address] Sep, [place] [address] [place] [address] Sep, Dysthymic disorder F34.1 ; Tobacco abuse Z72.0 ; Pain in right knee M25.561 ; Pain in left knee M25.562 ; Other chronic pain G89.29 and BMI 40.0- 44.9, adult Z68.41 [place] [id number] [place] [address] Aug, Major depressive disorder, recurrent episode, moderate F33.1 and 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 [place] [id number] [place] [address] Aug, Dysthymic disorder F34.1 ; Non-pressure chronic ulcer of left thigh, unspecified ulcer stage L97.129 ; Tobacco abuse Z72.0 ; Mild chronic obstructive pulmonary disease J44.9 and Forgetfulness R68.89 [place] [id number] [place] [address] Aug, Onychomycosis B35.1 ; Fissure in skin of foot R23.4 and Foot callus L84 [facility] [place] [id number] [place] [address] Jul, Right medial knee pain M25.561 ; Upper respiratory tract infection, unspecified type J06.9 and BMI 40.0-44.9, adult Z68.41 [facility] [place] [address] [address] Jul, Nausea and vomiting, intractability of vomiting not specified, unspecified vomiting type R11.2 ; Left ear pain H92.02 and Gastric pain R10.9 [place] [address] [address] Apr, Encounter for immunization Z23 [place] [address] [address] Apr, Onychomycosis B35.1 ; Xerosis of skin L85.3 ; Neuropathy G62.9 and 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 [place] [address] [address] Jan, Onychomycosis B35.1 and Neuropathy G62.9 [place] [address] [address] Dec, [place] [address] [address] Dec, [place] [address] [address] Nov, [place] [address] [address] Aug, [place] [address] [address] Aug, [place] [address], [place] [address] Jul, [facility] [address] [place] [address] Jul, [facility] [address], [place] [address] Jul, Decubitus ulcer of left thigh, stage 2 L89.892 [facility] [address], [place] [address] 17 Jul, 2016 Decubitus ulcer of left thigh, stage 2 L89.892 [facility] [address] [place] [address] 17 Jul, 2016 [facility] [address] [place] [address] 15 Jul, 2016 Decubitus ulcer of left thigh, stage 2 L89.892 [facility] [address], [place] [address] 14 Jul, 2016 [facility] [address] [place] [address] 13 Jul, 2016 Cellulitis of other specified site L03.818 ; Illicit drug use F19.90 and Decubitus ulcer of left thigh, stage 2 L89.892 [facility] [address], [place] [address] 08 Jul, 2016 [facility] [address], [place] [address] 06 Jul, 2016 Cellulitis of right breast N61.0 [facility] [address], [place] [address] Jun, [facility] [address], [place] [address] Jun, [facility] [address] [place] [address] Jun, Wheezing R06.2 and Arthralgia, unspecified joint M25.50 [place] [id number] [place] [address] May, [facility] [id number] [place] [address] May, [place] [address] [address] May, [place] [id number] [place] [address] May, Shortness of breath R06.02 [place] [id number] [place] [address] May, Onychomycosis B35.1 and Fissure in skin of foot R23.4 [place] [id number] [place] [address] Apr, [facility] [id number] [place] [address] Apr, Dizziness R42 [place] [id number] [place] [address] 14 Apr, 2016 Shortness of breath R06.02 ; Essential hypertension I10 ; Dizziness R42 and On home oxygen therapy Z99.81 [place] [id number] [place] [address] Apr, [place] [id number] [place] [address] Apr, [place] [address] [address] Apr, [place] [id number] [place] [address] Apr, [place] [address] [address] Apr, [facility] [address], [place] [address] Apr, [facility] [id number] [place] [address] Apr, [facility] [address] [place] [address] Mar, Mild chronic obstructive pulmonary disease J44.9 [facility] [id number] [place] [address] Mar, [facility] [id number] [place] [address] Mar, Epigastric pain R10.13 ; Low back pain M54.5 ; Other chronic pain G89.29 and Breast cancer screening Z12.39 [facility] [id number] [place] [address] Mar, [facility] [id number] [place] [address] Mar, [facility] [address] [place] [address] Feb, [facility] [id number] [place] [address] Feb, [facility] [address] [place] [address] Feb, Fissure in skin of foot R23.4 and Onychomycosis B35.1 [facility] [address], [place] [address] Jan, Agoraphobia F40.00 [facility] [id number] [place] [address] 14 Dec, 2015 Agoraphobia F40.00 [facility] [address], [place] [address] Dec, Mild persistent asthma without complication J45.30 ; Dysthymic disorder F34.1 and Upper respiratory tract infection, unspecified type J06.9 [place] [id number] [place] [address] Nov, Agoraphobia F40.00 [place] [id number] [place] [address] October, Agoraphobia F40.00 [place] [id number] [place] [address] Sep, Panic disorder without agoraphobia F41.0 ; Agoraphobia F40.00 and Dysthymic disorder F34.1 [place] [id number] [place] [address] Sep, Panic attacks F41.0 [place] [address] [address] Sep, [place] [address] [address] Sep, Panic disorder without agoraphobia F41.0 ; Varicose veins of both lower extremities I83.93 and Fatigue R53.83 [place] [id number] [place] [address] Sep, Fatigue R53.83 [place] [id number] [place] [address] 05 Sep, 2015 [place] [id number] [place] [address] Aug, [place] [id number] [place] [address] Aug, [place] [id number] [place] [address] Aug, 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 [place] [address] [address] Aug, Panic disorder without agoraphobia F41.0 ; Agoraphobia F40.00 and Dysthymic disorder F34.1 [place] [id number] [place] [address] Aug, Shortness of breath R06.02 ; Panic attacks F41.0 ; COPD (chronic obstructive pulmonary disease) J44.9 ; Tobacco abuse Z72.0 ; Family history of diabetes mellitus Z83.3 and Weight gain R63.[address] [address] Aug, [address] [address] Jul, [address] [address] Jun, Onychomycosis B35.1 ; Neuropathy G62.9 and Impaired circulation I99.[address] [address] Mar, Fissure in skin of foot R23.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 [place] [id number] [place] [address] Feb, Family history of coronary arteriosclerosis V17.3 [place] [id number] [place] [address] 15 Feb, 2015 Allergic rhinitis due to pollen 477.0 ; Unspecified breast screening V76.10 ; Anxiety 300.00 and Family history of coronary arteriosclerosis V17.[address] [address] Jan, [place] [id number] [place] [address] Dec, [address] [address] Dec, Onychomycosis 110.1 and Skin fissures 709.8 [facility] [address] [id number] [place] [address] 14 Sep, 2014 [facility] [address] [id number] [place] [address] Sep, [facility] [address] [facility] [id number] [place] [address] Aug, [facility] [address] [id number] [place] [address] Aug, [facility] [address] [facility] [id number] [place] [address], [place] [address] Jul, [facility] [address] [facility] [id number] [place] [address] Jul, [facility] [address] [place] [id number] [place] [address] Jun, [facility] [address] [facility] [id number] [place] [address] Jun, [facility] [address] [place] [address] [id number] [place] [address] Jun, [facility] [address] [facility] [id number] [place] [address] Jun, [facility] [address] [facility] [id number] [place] [address] Jun, [facility] [address] [facility] [id number] [address] May, [facility] [address] [facility] [id number] [place] [address] May, [facility] [address] [facility] [id number] [place] [address] May, [facility] [address] [place] [id number] [place] [address] May, [facility] [place] [facility] [address] [id number] [place] [address] May, [facility] [place] [facility] [address] [id number] [place] [address] May, [facility] [place] [facility] [address] [id number] [place] [address] May, [facility] [place] [facility] [address] [id number] [place] [address] May, [facility] [place] [facility] [address] [id number] [place] [address] Apr, [facility] [place] [facility] [address] [id number] [place] [address] Apr, [facility] [place] [facility] [address] [id number] [place] [address] Apr, [facility] [place] [facility] [address] [id number] [place] [address] Apr, [facility] [place] [facility] [address] [id number] [place] [address] Apr, [facility] [place] [facility] [address] [id number] [place] [address] Apr, [facility] [place] [facility] [address] [id number] [place] [address] Apr, [facility] [place] [facility] [address] [id number], [place] [address] Apr, [facility] [place] [facility] [address] [id number] [place] [address] Apr, [facility] [place] [facility] [address] [id number] [place] [address] Apr, [facility] [place] [facility] [address] [id number] [place] [address] Mar, [facility] [place] [facility] [address] [id number] [place] [address] Mar, [facility] [place] [facility] [address] [id number] [place] [address] Mar, [facility] [place] [facility] [address] [id number] [place] [address] Mar, [facility] [place] [facility] [address] [id number] [place] [address] Mar, [facility] [place] [facility] [address] [id number] [place] [address] Mar, [facility] [place] [facility] [address] [id number] [place] [address] Mar, [facility] [place] [facility] [address] [id number] [place] [address] Mar, [facility] [place] [facility] [address] [id number] [place] [address] Mar, [facility] [place] [facility] [address] [id number] [place] [address] Mar, [facility] [place] [facility] [address] [id number] [place] [address] Mar, [facility] [place] [facility] [address] [id number] [place] [address] Mar, [facility] [place] [facility] [address] [id number] [place] [address] Mar, [facility] [place] [facility] [address] [id number], [place] [address] Mar, [facility] [place] [facility] [address] [id number] [place] [address] Mar, [facility] [place] [facility] [address] [id number], [place] [address] Mar, [facility] [place] [facility] [address] [id number], [place] [address] Mar, [facility] [place] [facility] [address] [id number] [place] [address] 16 Mar, 2013 [facility] [place] [facility] [address] [id number] [place] [address] 16 Mar, 2014 [facility] [place] [facility] [address] [id number] [place] [address] 15 Mar, 2014 [facility] [place] [facility] [address] [id number] [place] [address] 14 Mar, 2014 [facility] [place] [facility] [address] [id number] [place] [address] 14 Mar, 2014 [facility] [place] [facility] [address] [id number] [place] [address] 14 Mar, 2014 [facility] [place] [facility] [address] [id number] [place] [address] 14 Mar, 2014 [facility] [place] [facility] [address] [id number] [place] [address] 09 Mar, 2014 [facility] [place] [facility] [address] [id number] [place] [address] 09 Mar, 2014 [facility] [place] [facility] [address] [id number] [place] [address] 09 Mar, 2014 [facility] [place] [facility] [address] [id number] [place] [address] 09 Mar, 2014 [facility] [place] [facility] [address] [id number] [place] [address] 30 Feb, 2013 [facility] [place] [facility] [address] [id number] [place] [address] 30 Sep, 2013 [facility] [place] [facility] [address] [id number] [place] [address] 30 Feb, 2013 [facility] [place] [facility] [address] [id number] [place] [address] 30 Feb, 2013 [facility] [place] [facility] [address] [id number] [place] [address] Feb, 2013 [facility] [place] [facility] [address] [id number] [place] [address] Feb, 2013 [facility] [place] [facility] [address] [id number] [place] [address] Feb, 2013 [facility] [place] [facility] [address] [id number] [place] [address] Feb, 2013 [facility] [place] [facility] [address] [id number] [place] [address] Feb, 2013 [facility] [place] [facility] [address] [id number] [place] [address] Feb, 2013 [facility] [place] [facility] [address] [id number] [place] [address] Feb, 2013 [facility] [place] [facility] [address] [id number] [place] [address] Feb, 2013 [facility] [place] [facility] [address] [id number] [place] [address] Jan, [facility] [place] [facility] [address] [id number] [place] [address] Jan, [facility] [place] [facility] [address] [id number] [place] [address] Jan, [facility] [place] [facility] [address] [id number], [place] [address] Jan, [facility] [place] [facility] [address] [id number], [place] [address] Jan, [facility] [place] [facility] [address] [id number] [place] [address] Jan, [facility] [place] [facility] [address] [id number] [place] [address] Jan, [facility] [place] [facility] [address] [id number] [place] [address] Jan, [facility] [place] [facility] [address] [id number] [place] [address] Jan, [facility] [place] [facility] [address] [id number] [facility] [address] Jan, [facility] [place] [facility] [address] [id number] [place] [address] Jan, [facility] [place] [facility] [address] [id number] [place] [address] Jan, [facility] [place] [facility] [address] [id number] [place] [address] Jan, [facility] [place] [facility] [address] [id number] [place] [address] Dec, [facility] [place] [facility] [address] [id number] [place] [address] Dec, [facility] [place] [facility] [address] [id number] [place] [address] Dec, [facility] [place] [facility] [address] [id number] [place] [address] Dec, [facility] [place] [facility] [address] [id number] [place] [address] Dec, [facility] [place] [facility] [address] [id number] [place] [address] Dec, [facility] [place] [facility] [address] [id number] [place] [address] Dec, [facility] [place] [facility] [address] [id number] [place] [address] Dec, [facility] [place] [facility] [address] [id number] [place] [address] Dec, [facility] [place] [facility] [address] [id number] [place] [address] Dec, [facility] [place] [facility] [address] [id number] [place] [address] Dec, [facility] [place] [facility] [address] [id number] [place] [address] Dec, 2013 [facility] [place] [facility] [address] [id number] [place] [address] Dec, 2013 [facility] [place] [facility] [address] [id number] [place] [address] Dec, 2013 [facility] [place] [facility] [address] [id number] [place] [address] Dec, 2013 [facility] [place] [facility] [address] [id number] [place] [address] Dec, 2013 [facility] [place] [facility] [address] [id number] [place] [address] Dec, 2013 [facility] [place] [facility] [address] [id number] [place] [address] Dec, 2013 [facility] [place] [facility] [address] [id number] [place] [address] Nov, [facility] [place] [facility] [address] [id number] [place] [address] Nov, [facility] [place] [facility] [address] [id number] [place] [address] Nov, [facility] [place] [facility] [address] [id number] [place] [address] Nov, [facility] [place] [facility] [address] [id number] [place] [address] Nov, [facility] [place] [facility] [address] [id number] [place] [address] Nov, [facility] [place] [facility] [address] [id number] [place] [address] Nov, [facility] [place] [facility] [address] [id number] [place] [address] Nov, [facility] [place] [facility] [address] [id number] [place] [address] Nov, [facility] [place] [facility] [address] [id number] [place] [address] Nov, [facility] [place] [facility] [address] [id number] [place] [address] Nov, [facility] [place] [facility] [address] [id number] [place] [address] Nov, [facility] [place] [facility] [address] [id number] [place] [address] Nov, [facility] [place] [facility] [address] [id number] [place] [address] Nov, [facility] [place] [facility] [address] [id number] [place] [address] Nov, [facility] [place] [facility] [address] [id number] [place] [address] Nov, [facility] [place] [facility] [address] [id number] [place] [address] Nov, [facility] [place] [facility] [address] [id number] [place] [address] Nov, [facility] [place] [facility] [address] [id number] [place] [address] Nov, [facility] [place] [facility] [address] [id number] [place] [address] Nov, [facility] [place] [facility] [address] [id number] [place] [address] October, [facility] [place] [facility] [address] [id number] [place] [address] October, [facility] [place] [facility] [address] [id number] [place] [address] October, [facility] [place] [facility] [address] [id number] [place] [address] October, [facility] [place] [facility] [address] [id number] [place] [address] Sep, [facility] [address] [id number] [place] [address] Sep, [facility] [place] [facility] [address] [id number] [place] [address] Sep, [facility] [address] [id number] [place] [address] Sep, [facility] [place] [facility] [address] [id number] [place] [address] Sep, [facility] [address] [id number] [place] [address] Sep, [facility] [place] [facility] [address] [id number] [place] [address] Sep, [facility] [place] [facility] [address] [id number] [place] [address] Sep, [facility] [address] [id number] [place] [address] Sep, [facility] [place] [facility] [address] [id number] [place] [address] Aug, [facility] [address] [id number] [place] [address] Aug, [facility] [place] [facility] [address] [id number] [place] [address] Aug, [facility] [place] [facility] [address] [id number] [place] [address] Aug, [facility] [place] [facility] [address] [id number] [place] [address] 07 Aug, 2013 [facility] [place] [facility] [address] [id number] [place] [address] 07 Aug, 2013 [facility] [place] [facility] [address] [id number] [place] [address] Aug, [facility] [place] [facility] [address] [id number] [place] [address] Aug, [facility] [place] [facility] [address] [id number] [place] [address] Jul, [facility] [place] [facility] [address] [id number] [place] [address] Jul, [facility] [place] [facility] [address] [id number] [place] [address] Jun, [facility] [place] [facility] [address] [id number] [place] [address] Jun, [facility] [place] [facility] [address] [id number] [place] [address] Jun, [facility] [place] [facility] [address] [id number] [place] [address] Jun, [facility] [place] [facility] [address] [id number] [place] [address] Jun, [facility] [place] [facility] [address] [id number] [place] [address] Jun, [facility] [place] [facility] [address] [id number] [place] [address] Jun, [facility] [place] [facility] [address] [id number], [place] [address] Jun, [facility] [place] [facility] [address] [id number], [place] [address] Jun, [facility] [place] [facility] [address] [id number] [place] [address] Jun, [facility] [place] [facility] [address] [id number], [place] [address] Jun, [facility] [place] [facility] [address] [id number] [place] [address] Jun, [facility] [place] [facility] [address] [id number] [place] [address] 31 May, 2012 [facility] [address] [id number] [place] [address] 31 May, 2012 [facility] [place] [facility] [address] [id number] [place] [address] 31 May, 2013 [facility] [address] [id number] [place] [address] 31 May, 2012 [facility] [place] [facility] [address] [id number] [place] [address] 31 May, 2013 [facility] [address] [id number] [place] [address] 31 May, 2013 [facility] [address] [id number] [place] [address] 26 May, 2013 [facility] [address] [id number] [place] [address] May, [facility] [place] [facility] [address] [id number] [place] [address] 23 May, 2013 [facility] [place] [facility] [address] [id number] [place] [address] 16 May, 2013 [facility] [address] [id number] [place] [address] 16 May, 2013 [facility] [place] [facility] [address] [id number] [place] [address] 16 May, 2013 [facility] [place] [facility] [address] [id number] [place] [address] 16 May, 2013 [facility] [place] [facility] [address] [id number] [place] [address] 29 Apr, 2013 [facility] [place] [facility] [address] [id number] [place] [address] 29 Apr, 2013 [facility] [place] [facility] [address] [id number], [place] [address] 25 Mar, 2013 [facility] [place] [facility] [address] [id number] [place] [address] Mar, [facility] [place] [facility] [address] [id number] [place] [address] Feb, [facility] [place] [facility] [address] [id number] [place] [address] Feb, [facility] [place] [facility] [address] [id number] [place] [address] Feb, [facility] [place] [facility] [address] [id number] [place] [address] Feb, [facility] [place] [facility] [address] [id number] [place] [address] Jan, [facility] [place] [facility] [address] [id number] [place] [address] Jan, [facility] [place] [facility] [address] [id number] [place] [address] Jan, [facility] [place] [facility] [address] [id number] [place] [address] Jan, [facility] [place] [facility] [address] [id number] [place] [address] Jan, [facility] [place] [facility] [address] [id number] [place] [address] Jan, [facility] [place] [facility] [address] [id number] [place] [address] Dec, [facility] [place] [facility] [address] [id number] [place] [address] Dec, [facility] [place] [facility] [address] [id number] [place] [address] Dec, [facility] [place] [facility] [address] [id number] [place] [address] Dec, [facility] [place] [facility] [address] [id number], [place] [address] Nov, [facility] [address] [id number] [place] [address] October, [facility] [place] [facility] [address] [id number] [place] [address] October, [facility] [place] [facility] [address] [facility] [id number] [place] [address] October, [facility] [place] [facility] [address] [id number], [place] [address] Sep, [facility] [place] [facility] [address] [id number] [place] [address] Sep, [facility] [place] [facility] [address] [id number] [place] [address] Jun, [facility] [place] [facility] [address] [id number], [place] [address] Jun, [facility] [place] [facility] [address] [id number], [place] [address] Jun, [facility] [place] [facility] [address] [id number], [place] [address] Apr, [facility] [place] [facility] [address] [id number], [place] [address] Apr, [facility] [place] [facility] [address] [id number], [place] [address] Apr, [facility] [place] [facility] [address] [id number], [place] [address] Apr, [facility] [place] [facility] [address] [id number], [place] [address] Mar, [facility] [place] [facility] [address] [id number], [place] [address] Mar, [facility] [place] [facility] [address] [id number], [place] [address] Mar, [facility] [place] [facility] [address] [id number] [place] [address] Mar, [facility] [address] [id number] [place] [address] 29 Feb, 2012 [facility] [place] [facility] [address] [id number] [place] [address] 27 Feb, 2012 [facility] [address] [id number] [place] [address] 20 Feb, 2012 [facility] [address] [id number] [place] [address] 30 Jan, 2012 [facility] [address] [id number] [place] [address] Jan, [facility] [address] [id number] [place] [address] Jan, [facility] [address] [id number] [place] [address] Jan, [facility] [address] [id number] [place] [address] Dec, [facility] [address] [id number] [place] [address] Dec, [facility] [address] [id number] [place] [address] Nov, [facility] [place] [facility] [address] [id number] [place] [address] Nov, [facility] [address] [id number] [place] [address] October, [facility] [place] [facility] [address] [id number] [place] [address] October, [facility] [place] [facility] [address] [id number] [place] [address] October, [facility] [address] [id number] [place] [address] Sep, [facility] [address] [id number] [place] [address] Sep, [facility] [place] [facility] [address] [id number] [place] [address] Sep, [facility] [place] [facility] [address] [id number] [place] [address] 27 Aug, 2011 [facility] [place] [facility] [address] [id number] [place] [address] 26 Aug, 2011 [facility] [place] [facility] [address] [id number] [place] [address] 15 Aug, 2011 [facility] [place] [facility] [address] [id number] [place] [address] 15 Aug, 2011 [facility] [place] [facility] [address] [facility] [id number] [place] [address] Aug, [facility] [place] [facility] [address] [id number] [place] [address] Jul, [facility] [place] [facility] [address] [id number] [place] [address] 16 Jul, 2011 [facility] [place] [facility] [address] [facility] [id number] [place] [address] Jul, [facility] [place] [facility] [address] [facility] [id number] [place] [address] Jul, [facility] [place] [facility] [address] [id number], [place] [address] Jul, [facility] [place] [facility] [address] [id number] [place] [address] 06 Jul, 2011 [facility] [place] [facility] [address] [id number] [place] [address] Jul, [facility] [place] [facility] [id number] [place] [address] Jul, [facility] [place] [facility] [address] [id number] [place] [address] Jun, [facility] [address] [id number] [place] [address] Jun, [facility] [address] [id number] [place] [address] May, [facility] [address] [id number] [place] [address] May, [facility] [address] [id number] [place] [address] May, [facility] [address] [id number] [place] [address] May, [facility] [address] [id number] [place] [address] Apr, [facility] [address] [id number] [place] [address] Apr, [facility] [address] [id number] [place] [address] Apr, [facility] [address] [id number] [place] [address] Mar, [facility] [address] [id number] [place] [address] Mar, [facility] [place] [facility] [address] [id number] [place] [address] Mar, [facility] [address] [id number] [place] [address] Mar, [facility] [place] [facility] [address] [id number] [place] [address] Dec, [facility] [place] [facility] [address] [id number] [place] [address] October, [facility] [address] [id number] [place] [address] May, [facility] [id number], [place] [address] May, [facility] [id number], [place] [address] May, [facility] [address] [id number], [place] [address] May, [facility] [address] [facility] [id number], [place] [address] Mar, [facility] [address] [facility] [id number], [place] [address] Mar, [facility] [id number], [place] [address] May, [facility] [id number], [place] [address] May, [facility] [id number], [place] [address] May, [facility] [id number], [place] [address] May, [facility] [id number], [place] [address] Apr, [facility] [address] [id number], [place] [address] Apr, [facility] [address] [id number], [place] [address] October, IMMUNIZATIONS No Known Immunizations SOCIAL HISTORY Never Assessed REASON FOR VISIT PLAN OF CARE VITAL SIGNS MEDICATIONS Unknown Medications RESULTS No Results PROCEDURES No Known procedures INSTRUCTIONS MEDICATIONS ADMINISTERED No Known Medications MEDICAL (GENERAL) HISTORY Type Description Date Medical History Anxiety disorder Medical History depression Medical History acid reflux Medical History asthma Medical History copd Medical History hypertenison Medical History hyperlipidemia Surgical History carpal tunnel release bilateral Surgical History cholecystectomy Surgical History right knee replacement Surgical History left knee arthroscopy Surgical History hysterectomy, total with bilateral salpingo-oophorectomy (BSO) Surgical History left rotator cuff surgery 05/17/2017 Surgical History colonoscopy 01/30/2014 Hospitalization History Surgeries only Hospitalization History hypotension, dizziness--[facility] 04/12/2016 Hospitalization History Colonoscopy 01/30/2014
--- OUTSIDE RECORDS SUMMARY | 2019-01-13 10:09 | XMS REPORT ---
Author Author RASHEED RAHMAN [facility] Address [address] [place] [address] Care Team Providers Care Lidar Technician Name Role Phone RASHEED RAHMAN Unavailable PROBLEMS Type Condition ICD9-CM Code [id number] Code Onset Dates Condition Status SNOMED Code Problem MRSA (methicillin resistant staph aureus) culture positive Z22.322 Active 601798814 Problem History of illicit drug use Z87.898 Active 451153384 Problem Snoring R06.83 Active 25081948 Problem Dysthymic disorder F34.1 Active 82460147 Problem Impaired circulation I99.9 Active 55864737 Problem 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 Active 74956531 Problem Major depressive disorder, recurrent episode, moderate F33.1 Active 525263932 Problem Mild persistent asthma without complication J45.30 Active 019417384 Problem Fatigue R53.83 Active 60176611 Problem Other chronic pain G89.29 Active 19344602 Problem Upper respiratory tract infection, unspecified type J06.9 Active 75540337 Problem On home oxygen therapy Z99.81 Active 180992646752 Problem Mild chronic obstructive pulmonary disease J44.9 Active 865575396 Problem Neuropathy G62.9 Active 185540867 Problem Essential hypertension I10 Active 58903593 Problem COPD exacerbation J44.1 Active 917130264 Problem COPD (chronic obstructive pulmonary disease) with chronic bronchitis J44.9 Active 699232920 Problem Exertional asthma J45.990 Active 46409983 Problem Swallowing problem R13.10 Active 653597720 Problem Agoraphobia F40.00 Active 09969940 Problem Hypertension, benign I10 Active 74523632 Problem Panic disorder without agoraphobia F41.0 Active 97254027 Problem Varicose veins of both lower extremities I83.93 Active 30778977 Problem 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 743304734 Problem Arthritis M19.90 Active 6567648 Problem Mood disorder F39 Active 25699076 Problem Psychotic disorder F29 Active 28391330 ALLERGIES No Information ENCOUNTERS Encounter Location Date Diagnosis [facility] [address], [place] [address] Feb, [facility] [address], [place] [address] Jan, [facility] [id number] [place] [address] Dec, [facility] [id number] [place] [address] Dec, [facility] [id number] [place] [address] Dec, Major depressive disorder, recurrent episode, moderate F33.1 and Panic disorder without agoraphobia F41.0 [facility] [id number] [place] [address] Dec, [facility] [address] [place] [address] Dec, Major depressive disorder, recurrent episode, moderate F33.1 [facility] [id number] [place] [address] Nov, Major depressive disorder, recurrent episode, moderate F33.1 ; Panic disorder without agoraphobia F41.0 and Morbid obesity E66.01 [facility] [address], [place] [address] Nov, Morbid obesity E66.01 [facility] [address], [place] [address] Nov, Major depressive disorder, recurrent episode, moderate F33.1 and Panic disorder without agoraphobia F41.0 [facility] [address], [place] [address] Nov, Allergic reaction, initial encounter T78.40XA and Morbid obesity E66.01 [facility] [id number] [place] [address] 18 Nov, 2018 [facility] [id number] [place] [address] Nov, Morbid obesity E66.01 ; Swallowing problem R13.10 and Hypertension, benign I10 [facility] [id number] [place] [address] Nov, Morbid obesity E66.01 ; COPD exacerbation J44.1 and Non-recurrent acute suppurative otitis media of left ear without spontaneous rupture of tympanic membrane H66.002 [place] [id number] [place] [address] Nov, Onychomycosis B35.1 ; Neuropathy G62.9 and Fissure in skin of foot R23.4 [facility] [id number] [place] [address] October, Major depressive disorder, recurrent episode, moderate F33.1 ; Panic disorder without agoraphobia F41.0 and Morbid obesity E66.01 [facility] [id number] [place] [address] October, Viral upper respiratory tract infection J06.9 [facility] [id number] [place] [address] October, [facility] [id number] [place] [address] October, Major depressive disorder, recurrent episode, moderate F33.1 and Panic disorder without agoraphobia F41.0 [facility] [id number] [place] [address] October, [facility] [id number] [place] [address] October, [facility] [id number] [place] [address] October, [facility] [address], [place] [address] October, [facility] [id number] [place] [address] October, [facility] [address], [place] [address] October, [facility] [id number] [place] [address] October, Major depressive disorder, recurrent episode, moderate F33.1 and Panic disorder without agoraphobia F41.0 [facility] [address] [place] [address] Sep, Morbid obesity E66.01 and Lumbar neuritis M54.16 [facility] [address], [place] [address] Sep, Panic disorder without agoraphobia F41.0 and Major depressive disorder, recurrent episode, moderate F33.1 [facility] [address], [place] [address] Sep, Gastroenteritis K52.9 ; Low back pain M54.5 ; Other chronic pain G89.29 and Morbid obesity E66.01 [facility] [address], [place] [address] Sep, Major depressive disorder, recurrent episode, moderate F33.1 ; Panic disorder without agoraphobia F41.0 and 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 [facility] [address], [place] [address] Sep, Panic disorder without agoraphobia F41.0 [facility] [id number] [place] [address] Sep, Panic disorder without agoraphobia F41.0 [facility] [address], [place] [address] Aug, Panic disorder without agoraphobia F41.0 ; Major depressive disorder, recurrent episode, moderate F33.1 ; 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 ; Psychotic disorder F29 ; Tardive dyskinesia G24.01 and Morbid obesity E66.01 [place] [address] [address] Aug, Dysthymic disorder F34.1 and Psychotic disorder F29 [place] [address] [address] Aug, Encounter for Medicare annual wellness exam Z00.00 ; Morbid obesity E66.01 and 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 [place] [address] [address] Aug, Dysthymic disorder F34.1 and Psychotic disorder F29 [place] [address] [address] Aug, Neuropathy G62.9 ; Onychomycosis B35.1 and Xerosis of skin L85.3 [place] [address] [address] Jul, [facility] [address] [address] Jul, Mood disorder F39 ; Wheezing R06.2 ; Choking, initial encounter T17.308A and Coughing R05 [place] [address] [address] Jul, Low back pain M54.5 [facility] [address] [address] Jun, Flu-like symptoms R68.89 ; BMI 45.0-49.9, adult Z68.42 ; COPD exacerbation J44.1 and Acute bronchitis J20.9 [place] [address] [address] Jun, [place] [address] [address] May, [place] [address] [address] May, Onychomycosis B35.1 and 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5 ; Other chronic pain G89.29 ; Exertional asthma J45.990 and Encounter for immunization Z23 [place] [address] [address] Feb, Skin fissures R23.4 ; Neuropathy G62.9 and Onychomycosis B35.1 [place] [address] [address] 05 Feb, 2018 Dysthymic disorder F34.1 [place] [address] [address] 04 Feb, 2018 [place] [id number] [place] [address] Jan, [facility] [id number] [place] [address] Jan, Abrasion of right elbow, initial encounter S50.311A ; Abrasion, right knee, initial encounter S80.211A and Sprain of other ligament of right ankle, initial encounter S93.491A [place] [address] [address] Jan, [facility] [id number] [place] [address] Jan, Injury of left ankle, initial encounter S99.912A ; Fall down stairs, initial encounter W10.8XXA and BMI 45.0-49.9, adult Z68.42 [place] [address] [address] Jan, COPD exacerbation J44.1 [place] [address] [address] Jan, Dysfunction of both eustachian 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 [place] [address] [address] Jan, Bronchitis J40 and Acute suppurative otitis media of left ear without spontaneous rupture of tympanic membrane, recurrence not specified H66.002 [facility] [id number] [place] [address] Jan, [facility] [id number] [place] [address] Jan, Bronchitis J40 and BMI 40.0-44.9, adult Z68.41 [facility] [id number] [place] [address] Jan, [facility] [id number] [place] [address] Dec, Gastric pain R10.9 [place] [id number] [place] [address] Dec, [address] [address] Dec, History of illicit drug use Z87.898 ; Neuropathy G62.9 ; COPD (chronic obstructive pulmonary disease) with chronic bronchitis J44.9 and Acute pain of right knee M25.[address] [address] Nov, [address] [address] Nov, Onychomycosis B35.1 and Contusion of left foot, subsequent encounter S90.32XD [address] [address] Nov, COPD exacerbation J44.[address] [address] Sep, [place] [id number] [place] [address] Sep, Dysthymic disorder F34.1 ; Tobacco abuse Z72.0 ; Pain in right knee M25.561 ; Pain in left knee M25.562 ; Other chronic pain G89.29 and BMI 40.0- 44.9, adult Z68.41 [place] [id number] [place] [address] Aug, Major depressive disorder, recurrent episode, moderate F33.1 and 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 [place] [id number] [place] [address] Aug, Dysthymic disorder F34.1 ; Non-pressure chronic ulcer of left thigh, unspecified ulcer stage L97.129 ; Tobacco abuse Z72.0 ; Mild chronic obstructive pulmonary disease J44.9 and Forgetfulness R68.89 [place] [id number] [place] [address] Aug, Onychomycosis B35.1 ; Fissure in skin of foot R23.4 and Foot callus L84 [facility] [id number] [place] [address] Jul, Right medial knee pain M25.561 ; Upper respiratory tract infection, unspecified type J06.9 and BMI 40.0-44.9, adult Z68.41 [facility] [address] [address] Jul, Nausea and vomiting, intractability of vomiting not specified, unspecified vomiting type R11.2 ; Left ear pain H92.02 and Gastric pain R10.9 [place] [id number] [place] [address] Apr, Encounter for immunization Z23 [place] [id number] [place] [address] Apr, Onychomycosis B35.1 ; Xerosis of skin L85.3 ; Neuropathy G62.9 and 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 [place] [id number] [place] [address] Jan, Onychomycosis B35.1 and Neuropathy G62.9 [place] [id number] [place] [address] Dec, [place] [address] [address] Dec, [place] [id number] [place] [address] Nov, [facility] [place] [id number] [place] [address] Aug, [place] [id number] [place] [address] Aug, [place] [address] [address] Jul, [facility] [address], [place] [address] Jul, [facility] [address], [place] [address] 17 Jul, 2016 Decubitus ulcer of left thigh, stage 2 L89.892 [facility] [address], [place] [address] 17 Jul, 2016 Decubitus ulcer of left thigh, stage 2 L89.892 [facility] [address], [place] [address] 17 Jul, 2016 [facility] [address], [place] [address] 15 Jul, 2016 Decubitus ulcer of left thigh, stage 2 L89.892 [facility] [address], [place] [address] 14 Jul, 2016 [facility] [address], [place] [address] 13 Jul, 2016 Cellulitis of other specified site L03.818 ; Illicit drug use F19.90 and Decubitus ulcer of left thigh, stage 2 L89.892 [facility] [address], [place] [address] 08 Jul, 2016 [facility] [address], [place] [address] Jul, Cellulitis of right breast N61.0 [facility] [address], [place] [address] Jun, [facility] [address], [place] [address] Jun, [facility] [address], [place] [address] Jun, Wheezing R06.2 and Arthralgia, unspecified joint M25.50 [facility] [id number] [place] [address] May, [facility] [address] [address] May, [place] [address] [address] May, [facility] [address] [address] May, Shortness of breath R06.02 [place] [address] [address] May, Onychomycosis B35.1 and Fissure in skin of foot R23.4 [place] [address] [address] Apr, [facility] [address] [address] 18 Apr, 2016 Dizziness R42 [place] [address] [address] 14 Apr, 2016 Shortness of breath R06.02 ; Essential hypertension I10 ; Dizziness R42 and On home oxygen therapy Z99.81 [place] [address] [address] Apr, [place] [address] [address] Apr, [place] [address] [address] Apr, [facility] [address] [address] Apr, [facility] [address] [address] Apr, [place] [address], [place] [address] Apr, [facility] [id number] [place] [address] Apr, [facility] [address], [place] [address] Mar, Mild chronic obstructive pulmonary disease J44.9 [facility] [id number] [place] [address] Mar, [facility] [address] [place] [address] Mar, Epigastric pain R10.13 ; Low back pain M54.5 ; Other chronic pain G89.29 and Breast cancer screening Z12.39 [facility] [id number] [place] [address] Mar, [facility] [id number] [place] [address] Mar, [facility] [address] [place] [address] Feb, [facility] [id number] [place] [address] Feb, [facility] [address], [place] [address] Feb, Fissure in skin of foot R23.4 and Onychomycosis B35.1 [facility] [address], [place] [address] Jan, Agoraphobia F40.00 [facility] [id number] [place] [address] Dec, Agoraphobia F40.00 [facility] [address], [place] [address] Dec, Mild persistent asthma without complication J45.30 ; Dysthymic disorder F34.1 and Upper respiratory tract infection, unspecified type J06.9 [facility] [id number] [place] [address] Nov, Agoraphobia F40.00 [facility] [id number] [place] [address] October, Agoraphobia F40.00 [facility] [id number] [place] [address] Sep, Panic disorder without agoraphobia F41.0 ; Agoraphobia F40.00 and Dysthymic disorder F34.1 [place] [id number] [place] [address] Sep, Panic attacks F41.0 [place] [id number] [place] [address] Sep, [place] [address] [address] Sep, Panic disorder without agoraphobia F41.0 ; Varicose veins of both lower extremities I83.93 and Fatigue R53.83 [place] [id number] [place] [address] Sep, Fatigue R53.83 [place] [id number] [place] [address] Sep, [place] [id number] [place] [address] Aug, [facility] [id number] [place] [address] Aug, [place] [id number] [place] [address] Aug, 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 [place] [id number] [place] [address] Aug, Panic disorder without agoraphobia F41.0 ; Agoraphobia F40.00 and Dysthymic disorder F34.1 [place] [address] [address] Aug, Shortness of breath R06.02 ; Panic attacks F41.0 ; COPD (chronic obstructive pulmonary disease) J44.9 ; Tobacco abuse Z72.0 ; Family history of diabetes mellitus Z83.3 and Weight gain R63.[address] [address] Aug, [address] [address] Jul, [address] [address] Jun, Onychomycosis B35.1 ; Neuropathy G62.9 and Impaired circulation I99.[address] [address] Mar, Fissure in skin of foot R23.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 [address] Feb, Family history of coronary arteriosclerosis V17.[address] [address] Feb, Allergic rhinitis due to pollen 477.0 ; Unspecified breast screening V76.10 ; Anxiety 300.00 and Family history of coronary arteriosclerosis V17.[address] [address] Jan, [address] [address] Dec, [address] [address] Dec, Onychomycosis 110.1 and Skin fissures 709.8 [facility] [address] [facility] [id number] [place] [address] Sep, [facility] [address] [facility] [id number] [place] [address] Sep, [facility] [address] [facility] [id number] [place] [address] Aug, [facility] [address] [facility] [id number] [place] [address] Aug, [facility] [address] [facility] [id number] [place] [address] Jul, [facility] [address] [facility] [id number] [place] [address] Jul, [facility] [id number] [address] Jun, [facility] [address] [facility] [id number] [place] [address] Jun, [facility] [address] [id number] [place] [address] Jun, [facility] [address] [facility] [id number] [place] [address] Jun, [facility] [id number] [address] Jun, [facility] [address] [facility] [id number] [address] May, [facility] [address] [facility] [id number] [place] [address] May, [facility] [address] [facility] [id number] [place] [address] May, [facility] [id number] [address] May, [facility] [place] [facility] [address] [id number] [place] [address] May, [facility] [place] [facility] [address] [id number] [place] [address] May, [facility] [place] [facility] [address] [id number] [place] [address] May, [facility] [place] [facility] [address] [id number] [place] [address] May, [facility] [place] [facility] [address] [id number] [place] [address] Apr, [facility] [place] [facility] [address] [id number] [place] [address] Apr, [facility] [place] [facility] [address] [id number] [place] [address] Apr, [facility] [place] [facility] [address] [id number] [place] [address] Apr, [facility] [place] [facility] [address] [id number] [place] [address] Apr, [facility] [place] [facility] [address] [id number] [place] [address] Apr, [facility] [place] [facility] [address] [id number] [place] [address] Apr, [facility] [place] [facility] [address] [id number] [place] [address] Apr, [facility] [place] [facility] [address] [id number] [place] [address] Apr, [facility] [place] [facility] [address] [id number] [place] [address] Apr, [facility] [place] [facility] [address] [id number] [place] [address] Mar, [facility] [place] [facility] [address] [id number] [place] [address] Mar, [facility] [place] [facility] [address] [id number] [place] [address] Mar, [facility] [place] [facility] [address] [id number] [place] [address] Mar, [facility] [place] [facility] [address] [address] [id number] [place] [address] Mar, [facility] [place] [facility] [address] [id number] [place] [address] Mar, [facility] [place] [facility] [address] [id number] [place] [address] Mar, [facility] [place] [facility] [address] [id number] [place] [address] Mar, [facility] [place] [facility] [address] [id number] [place] [address] Mar, [facility] [place] [facility] [address] [id number][place] [address] Mar, [facility] [place] [facility] [address] [id number], [place] [address] Mar, [facility] [place] [facility] [address] [id number], [place] [address] Mar, [facility] [place] [facility] [address] [id number][place] [address] Mar, [facility] [place] [facility] [address] [id number], [place] [address] Mar, [facility] [place] [facility] [address] [id number], [place] [address] Mar, [facility] [place] [facility] [address] [id number], [place] [address] Mar, [facility] [place] [facility] [address] [id number], [place] [address] Mar, [facility] [place] [facility] [address] [id number] [place] [address] 16 Mar, 2013 [facility] [place] [facility] [address] [id number] [place] [address] 16 Mar, 2013 [facility] [place] [facility] [address] [id number] [place] [address] 15 Mar, 2013 [facility] [place] [facility] [address] [id number] [place] [address] 14 Mar, 2014 [facility] [place] [facility] [address] [id number] [place] [address] 14 Mar, 2013 [facility] [place] [facility] [address] [id number] [place] [address] 14 Mar, 2014 [facility] [place] [facility] [address] [id number] [place] [address] 14 Mar, 2014 [facility] [place] [facility] [address] [id number] [place] [address] 09 Mar, 2013 [facility] [place] [facility] [address] [id number] [place] [address] 09 Mar, 2013 [facility] [place] [facility] [address] [id number] [place] [address] 09 Mar, 2013 [facility] [place] [facility] [address] [id number] [place] [address] 09 Mar, 2013 [facility] [place] [facility] [address] [id number] [place] [address] 30 Feb, 2013 [facility] [place] [facility] [address] [id number] [place] [address] 30 Sep, 2013 [facility] [place] [facility] [address] [id number] [place] [address] 30 Sep, 2013 [facility] [place] [facility] [address] [id number] [place] [address] 30 Sep, 2013 [facility] [place] [facility] [address] [id number] [place] [address] 26 Sep, 2013 [facility] [place] [facility] [address] [id number] [place] [address] Feb, 2013 [facility] [place] [facility] [address] [id number] [place] [address] Feb, 2013 [facility] [place] [facility] [address] [id number] [place] [address] Feb, 2013 [facility] [place] [facility] [address] [id number] [place] [address] Feb, 2013 [facility] [place] [facility] [address] [id number] [place] [address] Feb, 2013 [facility] [place] [facility] [address] [id number] [place] [address] Feb, 2013 [facility] [place] [facility] [address] [id number] [place] [address] Feb, 2013 [facility] [place] [facility] [address] [id number] [place] [address] Jan, [facility] [place] [facility] [address] [id number] [place] [address] Jan, [facility] [place] [facility] [address] [id number] [place] [address] Jan, [facility] [place] [facility] [address] [id number] [place] [address] Jan, [facility] [place] [facility] [address] [id number] [place] [address] Jan, [facility] [place] [facility] [address] [id number] [place] [address] Jan, [facility] [place] [facility] [address] [id number] [place] [address] Jan, [facility] [place] [facility] [address] [id number] [place] [address] Jan, [facility] [place] [facility] [address] [id number] [place] [address] Jan, [facility] [place] [facility] [address] [id number] [place] [address] Jan, [facility] [place] [facility] [address] [id number] [place] [address] Jan, [facility] [place] [facility] [address] [id number] [place] [address] Jan, [facility] [place] [facility] [address] [id number] [place] [address] Jan, [facility] [place] [facility] [address] [id number] [place] [address] Dec, [facility] [place] [facility] [address] [id number] [place] [address] Dec, [facility] [place] [facility] [address] [id number] [place] [address] Dec, [facility] [place] [facility] [address] [id number] [place] [address] Dec, [facility] [place] [facility] [address] [id number] [place] [address] Dec, [facility] [place] [facility] [address] [id number] [place] [address] Dec, [facility] [place] [facility] [address] [id number] [place] [address] Dec, [facility] [place] [facility] [address] [id number] [place] [address] Dec, [facility] [place] [facility] [address] [id number] [place] [address] Dec, [facility] [place] [facility] [address] [id number] [place] [address] Dec, [facility] [place] [facility] [address] [id number] [place] [address] Dec, [facility] [place] [facility] [address] [id number] [place] [address] Dec, 2013 [facility] [place] [facility] [address] [id number] [place] [address] Dec, 2013 [facility] [place] [facility] [address] [id number] [place] [address] Dec, 2013 [facility] [place] [facility] [address] [id number] [place] [address] Dec, 2013 [facility] [place] [facility] [address] [id number] [place] [address] Dec, 2013 [facility] [place] [facility] [address] [id number] [place] [address] Dec, 2013 [facility] [place] [facility] [address] [id number] [place] [address] Dec, 2013 [facility] [place] [facility] [address] [id number] [place] [address] Nov, [facility] [place] [facility] [address] [id number] [place] [address] Nov, [facility] [place] [facility] [address] [id number] [place] [address] Nov, [facility] [place] [facility] [address] [id number] [place] [address] Nov, [facility] [place] [facility] [address] [id number] [place] [address] Nov, [facility] [place] [facility] [address] [id number] [place] [address] Nov, [facility] [place] [facility] [address] [id number] [place] [address] Nov, [facility] [place] [facility] [address] [id number] [place] [address] Nov, [facility] [place] [facility] [address] [id number] [place] [address] Nov, [facility] [place] [facility] [address] [id number] [place] [address] Nov, [facility] [place] [facility] [address] [id number] [place] [address] Nov, [facility] [place] [facility] [address] [id number] [place] [address] Nov, [facility] [place] [facility] [address] [id number] [place] [address] Nov, [facility] [place] [facility] [address] [id number] [place] [address] Nov, [facility] [place] [facility] [address] [id number] [place] [address] Nov, [facility] [place] [facility] [address] [id number] [place] [address] Nov, [facility] [place] [facility] [address] [id number] [place] [address] Nov, [facility] [place] [facility] [address] [id number] [place] [address] Nov, [facility] [place] [facility] [address] [id number] [place] [address] Nov, [facility] [place] [facility] [address] [id number] [place] [address] Nov, [facility] [place] [facility] [address] [id number] [place] [address] October, [facility] [place] [facility] [address] [id number] [place] [address] October, [facility] [place] [facility] [address] [id number] [place] [address] October, [facility] [place] [facility] [address] [id number] [place] [address] October, [facility] [place] [facility] [address] [id number] [place] [address] Sep, [facility] [place] [facility] [address] [id number] [place] [address] Sep, [facility] [place] [facility] [address] [id number] [place] [address] Sep, [facility] [place] [facility] [address] [id number] [place] [address] Sep, [facility] [place] [facility] [address] [id number] [place] [address] Sep, [facility] [place] [facility] [address] [id number] [place] [address] Sep, [facility] [place] [facility] [address] [id number] [place] [address] Sep, [facility] [place] [facility] [address] [id number] [place] [address] Sep, [facility] [place] [facility] [address] [id number] [place] [address] Sep, [facility] [place] [facility] [address] [id number] [place] [address] Aug, [facility] [place] [facility] [address] [id number] [place] [address] Aug, [facility] [place] [facility] [address] [id number] [place] [address] Aug, [facility] [place] [facility] [address] [id number] [place] [address] Aug, [facility] [place] [facility] [address] [id number] [place] [address] 07 Aug, 2013 [facility] [place] [facility] [address] [id number] [place] [address] 07 Aug, 2013 [facility] [place] [facility] [address] [id number] [place] [address] 07 Aug, 2013 [facility] [place] [facility] [address] [id number] [place] [address] Aug, [facility] [place] [facility] [address] [id number] [place] [address] Jul, [facility] [place] [facility] [address] [id number] [place] [address] Jul, [facility] [place] [facility] [address] [id number] [place] [address] Jun, [facility] [place] [facility] [address] [id number] [place] [address] Jun, [facility] [place] [facility] [address] [id number] [place] [address] Jun, [facility] [place] [facility] [address] [id number] [place] [address] Jun, [facility] [place] [facility] [address] [id number] [place] [address] Jun, [facility] [place] [facility] [address] [id number] [place] [address] Jun, [facility] [place] [facility] [address] [id number] [place] [address] Jun, [facility] [place] [facility] [address] [id number] [place] [address] Jun, [facility] [place] [facility] [address] [id number] [place] [address] Jun, [facility] [place] [facility] [address] [id number] [place] [address] Jun, [facility] [place] [facility] [address] [id number] [place] [address] Jun, [facility] [place] [facility] [address] [id number] [place] [address] Jun, [facility] [place] [facility] [address] [id number], [place] [address] 31 May, 2013 [facility] [address] [id number] [place] [address] 31 May, 2013 [facility] [place] [facility] [address] [id number] [place] [address] 31 May, 2013 [facility] [place] [facility] [address] [facility] [id number] [place] [address] May, [facility] [place] [facility] [address] [id number] [place] [address] 31 May, 2013 [facility] [place] [facility] [address] [id number] [place] [address] 31 May, 2013 [facility] [place] [facility] [address] [id number] [place] [address] May, [facility] [place] [facility] [address] [id number] [place] [address] May, [facility] [place] [facility] [address] [id number] [place] [address] May, [facility] [place] [facility] [address] [id number] [place] [address] 16 May, 2013 [facility] [place] [facility] [address] [id number] [place] [address] 16 May, 2013 [facility] [place] [facility] [address] [id number], [place] [address] 16 May, 2013 [facility] [place] [facility] [address] [id number], [place] [address] 16 May, 2013 [facility] [place] [facility] [address] [id number] [place] [address] Apr, [facility] [place] [facility] [address] [id number], [place] [address] 29 Apr, 2013 [facility] [place] [facility] [address] [id number], [place] [address] Mar, [facility] [place] [facility] [address] [id number] [place] [address] Mar, [facility] [address] [id number] [place] [address] 24 Feb, 2013 [facility] [place] [facility] [address] [id number] [place] [address] Feb, [facility] [address] [id number] [place] [address] Feb, [facility] [place] [facility] [address] [id number] [place] [address] Feb, [facility] [address] [id number] [place] [address] Jan, [facility] [address] [id number] [place] [address] Jan, [facility] [address] [id number] [place] [address] Jan, [facility] [address] [id number] [place] [address] Jan, [facility] [place] [facility] [address] [id number] [place] [address] Jan, [facility] [address] [id number] [place] [address] Jan, [facility] [place] [facility] [address] [id number] [place] [address] Dec, [facility] [place] [facility] [address] [id number] [place] [address] Dec, [facility] [place] [facility] [address] [id number] [place] [address] Dec, [facility] [place] [facility] [address] [id number] [place] [address] Dec, [facility] [place] [facility] [address] [id number] [place] [address] Nov, [facility] [address] [id number] [place] [address] October, [facility] [place] [facility] [address] [id number] [place] [address] October, [facility] [place] [facility] [address] [id number] [place] [address] October, [facility] [place] [facility] [address] [id number] [place] [address] Sep, [facility] [place] [facility] [address] [id number] [place] [address] Sep, [facility] [place] [facility] [address] [id number] [place] [address] Jun, [facility] [place] [facility] [address] [facility] [id number] [place] [address] Jun, [facility] [place] [facility] [address] [id number], [place] [address] Jun, [facility] [place] [facility] [address] [id number], [place] [address] Apr, [facility] [place] [facility] [address] [id number], [place] [address] Apr, [facility] [place] [facility] [address] [facility] [id number], [place] [address] Apr, [facility] [place] [facility] [address] [id number], [place] [address] Apr, [facility] [place] [facility] [address] [id number], [place] [address] Mar, [facility] [place] [facility] [address] [id number], [place] [address] Mar, [facility] [place] [facility] [address] [facility] [id number], [place] [address] Mar, [facility] [place] [facility] [address] [id number], [place] [address] Mar, [facility] [place] [facility] [address] [id number] [place] [address] 29 Feb, 2012 [facility] [place] [facility] [address] [id number] [place] [address] 27 Feb, 2012 [facility] [place] [facility] [address] [id number] [place] [address] 20 Feb, 2012 [facility] [place] [facility] [address] [id number] [place] [address] 30 Jan, 2012 [facility] [place] [facility] [address] [id number] [place] [address] Jan, [facility] [place] [facility] [address] [id number] [place] [address] Jan, [facility] [place] [facility] [address] [facility] [id number] [place] [address] Jan, [facility] [place] [facility] [address] [id number] [place] [address] Dec, [facility] [place] [facility] [address] [id number] [place] [address] Dec, [facility] [place] [facility] [address] [facility] [id number] [place] [address] Nov, [facility] [place] [facility] [address] [id number] [place] [address] Nov, [facility] [place] [facility] [address] [id number] [place] [address] October, [facility] [place] [facility] [address] [id number] [place] [address] October, [facility] [place] [facility] [address] [facility] [id number] [place] [address] October, [facility] [place] [facility] [address] [facility] [id number] [place] [address] Sep, [facility] [place] [facility] [address] [id number] [place] [address] 03 Sep, 2011 [facility] [place] [facility] [address] [id number] [place] [address] 03 Sep, 2011 [facility] [place] [facility] [address] [id number] [place] [address] 27 Aug, 2011 [facility] [place] [facility] [address] [id number] [place] [address] 26 Aug, 2011 [facility] [place] [facility] [address] [id number] [place] [address] 15 Aug, 2011 [facility] [place] [facility] [address] [id number] [place] [address] 15 Aug, 2011 [facility] [place] [facility] [address] [facility] [id number] [place] [address] 07 Aug, 2011 [facility] [place] [facility] [address] [id number] [place] [address] 23 Jul, 2011 [facility] [place] [facility] [address] [id number] [place] [address] 16 Jul, 2011 [facility] [place] [facility] [id number] [place] [address] 13 Jul, 2011 [facility] [place] [facility] [id number] [place] [address] Jul, [facility] [place] [facility] [address] [facility] [id number], [place] [address] 07 Jul, 2011 [facility] [place] [facility] [address] [facility] [id number] [place] [address] 06 Jul, 2011 [facility] [place] [facility] [address] [id number] [place] [address] 03 Jul, 2011 [facility] [place] [facility] [address] [facility] [id number] [place] [address] Jul, [facility] [place] [facility] [address] [facility] [id number], [place] [address] Jun, [facility] [place] [facility] [address] [id number] [place] [address] Jun, [facility] [place] [facility] [address] [id number] [place] [address] May, [facility] [place] [facility] [address] [facility] [id number] [place] [address] May, [facility] [place] [facility] [address] [id number] [place] [address] May, [facility] [place] [facility] [address] [id number] [place] [address] May, [facility] [place] [facility] [address] [id number] [place] [address] Apr, [facility] [place] [facility] [address] [facility] [id number] [place] [address] Apr, [facility] [place] [facility] [address] [id number] [place] [address] Apr, [facility] [place] [facility] [address] [facility] [id number] [place] [address] Mar, [facility] [place] [facility] [address] [facility] [id number] [place] [address] Mar, [facility] [place] [facility] [address] [id number] [place] [address] Mar, [facility] [place] [facility] [address] [id number] [place] [address] Mar, [facility] [place] [facility] [address] [id number] [place] [address] Dec, [facility] [place] [facility] [address] [facility] [id number] [place] [address] October, [facility] [place] [facility] [address] [facility] [id number] [place] [address] May, [facility] [place] [facility] [id number], [place] [address] 13 May, 2010 [facility] [id number], [place] [address] May, [facility] [id number], [place] [address] May, [facility] [id number], [place] [address] Mar, [facility] [id number], [place] [address] Mar, [facility] [id number] [place] [address] May, [facility] [id number], [place] [address] May, [facility] [id number] [place] [address] May, [facility] [id number], [place] [address] May, [facility] [id number], [place] [address] Apr, [facility] [address] [id number], [place] [address] Apr, [facility] [address] [id number], [place] [address] October, IMMUNIZATIONS No Known Immunizations SOCIAL HISTORY [...]
--- OUTSIDE RECORDS SUMMARY | 2019-01-13 10:10 | XMS REPORT ---
Author Author RASHEED RAHMAN [facility] Address [address] [place] [address] Care Team Providers Care Principal Trainer Name Role Phone RASHEED RAHMAN Unavailable PROBLEMS Type Condition ICD9-CM Code OYF82-YC Code Onset Dates Condition Status SNOMED Code Problem MRSA (methicillin resistant staph aureus) culture positive Z22.322 Active 237550017 Problem History of illicit drug use Z87.898 Active 214489586 Problem Snoring R06.83 Active 34962917 Problem Dysthymic disorder F34.1 Active 64022906 Problem Impaired circulation I99.9 Active 56831349 Problem 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 Active 02239441 Problem Major depressive disorder, recurrent episode, moderate F33.1 Active 367884925 Problem Mild persistent asthma without complication J45.30 Active 661408271 Problem Fatigue R53.83 Active 72487380 Problem Other chronic pain G89.29 Active 08423578 Problem Upper respiratory tract infection, unspecified type J06.9 Active 38659820 Problem On home oxygen therapy Z99.81 Active 760529053171 Problem Mild chronic obstructive pulmonary disease J44.9 Active 157958801 Problem Neuropathy G62.9 Active 912522136 Problem Essential hypertension I10 Active 47607757 Problem COPD exacerbation J44.1 Active 377310837 Problem COPD (chronic obstructive pulmonary disease) with chronic bronchitis J44.9 Active 625037484 Problem Exertional asthma J45.990 Active 79713917 Problem Swallowing problem R13.10 Active 898745813 Problem Agoraphobia F40.00 Active 45132505 Problem Hypertension, benign I10 Active 77179384 Problem Panic disorder without agoraphobia F41.0 Active 16019347 Problem Varicose veins of both lower extremities I83.93 Active 90982038 Problem 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 415109853 Problem Arthritis M19.90 Active 7354458 Problem Mood disorder F39 Active 45279940 Problem Psychotic disorder F29 Active 55986642 ALLERGIES No Information ENCOUNTERS Encounter Location Date Diagnosis [facility] [id number] [place] [address] Feb, [facility] [id number] [place] [address] Dec, [facility] [id number] [place] [address] Dec, [facility] [id number] [place] [address] Dec, [facility] [id number] [place] [address] Dec, Major depressive disorder, recurrent episode, moderate F33.1 [facility] [id number] [place] [address] Nov, Major depressive disorder, recurrent episode, moderate F33.1 ; Panic disorder without agoraphobia F41.0 and Morbid obesity E66.01 [facility] [id number] [place] [address] Nov, Morbid obesity E66.01 [facility] [id number] [place] [address] Nov, Major depressive disorder, recurrent episode, moderate F33.1 and Panic disorder without agoraphobia F41.0 [facility] [id number] [place] [address] Nov, Allergic reaction, initial encounter T78.40XA and Morbid obesity E66.01 [facility] [id number] [place] [address] Nov, [facility] [id number] [place] [address] 13 Nov, 2018 Morbid obesity E66.01 ; Swallowing problem R13.10 and Hypertension, benign I10 [facility] [id number], [place] [address] Nov, Morbid obesity E66.01 ; COPD exacerbation J44.1 and Non-recurrent acute suppurative otitis media of left ear without spontaneous rupture of tympanic membrane H66.002 [facility] [address], [place] [address] Nov, Onychomycosis B35.1 ; Neuropathy G62.9 and Fissure in skin of foot R23.4 [facility] [id number] [place] [address] October, Major depressive disorder, recurrent episode, moderate F33.1 ; Panic disorder without agoraphobia F41.0 and Morbid obesity E66.01 [facility] [address], [place] [address] October, Viral upper respiratory tract infection J06.9 [facility] [id number] [place] [address] October, [facility] [id number] [place] [address] October, Major depressive disorder, recurrent episode, moderate F33.1 and Panic disorder without agoraphobia F41.0 [facility] [address], [place] [address] October, [facility] [address], [place] [address] October, [facility] [address], [place] [address] October, [facility] [id number] [place] [address] October, [facility] [id number] [place] [address] October, [facility] [id number] [place] [address] October, [facility] [id number] [place] [address] October, Major depressive disorder, recurrent episode, moderate F33.1 and Panic disorder without agoraphobia F41.0 [facility] [id number] [place] [address] Sep, Morbid obesity E66.01 and Lumbar neuritis M54.16 [facility] [id number] [place] [address] Sep, Panic disorder without agoraphobia F41.0 and Major depressive disorder, recurrent episode, moderate F33.1 [facility] [id number] [place] [address] Sep, Gastroenteritis K52.9 ; Low back pain M54.5 ; Other chronic pain G89.29 and Morbid obesity E66.01 [facility] [id number] [place] [address] Sep, Major depressive disorder, recurrent episode, moderate F33.1 ; Panic disorder without agoraphobia F41.0 and 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 [facility] [id number] [place] [address] Sep, Panic disorder without agoraphobia F41.0 [facility] [id number] [place] [address] Sep, Panic disorder without agoraphobia F41.0 [facility] [id number] [place] [address] Aug, Panic disorder without agoraphobia F41.0 ; Major depressive disorder, recurrent episode, moderate F33.1 ; 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 ; Psychotic disorder F29 ; Tardive dyskinesia G24.01 and Morbid obesity E66.01 [facility] [id number] [place] [address] Aug, Dysthymic disorder F34.1 and Psychotic disorder F29 [facility] [id number] [place] [address] 28 Aug, 2018 Encounter for Medicare annual wellness exam Z00.00 ; Morbid obesity E66.01 and 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 [facility] [id number] [place] [address] 12 Aug, 2018 Dysthymic disorder F34.1 and Psychotic disorder F29 [facility] [address] [address] Aug, Neuropathy G62.9 ; Onychomycosis B35.1 and Xerosis of skin L85.3 [facility] [address] [address] 13 Jul, 2018 [facility] [address] [address] Jul, Mood disorder F39 ; Wheezing R06.2 ; Choking, initial encounter T17.308A and Coughing R05 [facility] [id number] [place] [address] Jul, Low back pain M54.5 [facility] [id number] [place] [address] Jun, Flu-like symptoms R68.89 ; BMI 45.0-49.9, adult Z68.42 ; COPD exacerbation J44.1 and Acute bronchitis J20.9 [facility] [id number] [place] [address] Jun, [facility] [id number] [place] [address] May, [facility] [address] [address] May, Onychomycosis B35.1 and 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 [facility] [id number] [place] [address] 17 May, 2018 Low back pain M54.5 and Edema leg R60.[address] [address] 11 May, 2018 BMI 45.0-49.9, adult Z68.42 ; Well woman exam with routine gynecological exam Z01.419 and Breast cancer screening Z12.31 [facility] [address] [address] 19 Apr, 2018 Arthritis M19.90 [facility] [address] [address] 16 Apr, 2018 Arthritis M19.90 and Otalgia of both ears H92.[address] [address] 28 Feb, 2018 [place] [facility] [address] [address] 28 Feb, 2018 Low back pain M54.5 ; Other chronic pain G89.29 ; Exertional asthma J45.990 and Encounter for immunization Z23 [address] [address] 21 Feb, 2018 Skin fissures R23.4 ; Neuropathy G62.9 and Onychomycosis B35.[address] [address] 05 Feb, 2018 Dysthymic disorder F34.1 [place] [address] [address] 04 Feb, 2018 [place] [address] [address] Jan, [facility] [address] [address] Jan, Abrasion of right elbow, initial encounter S50.311A ; Abrasion, right knee, initial encounter S80.211A and Sprain of other ligament of right ankle, initial encounter S93.491A [facility] [id number] [place] [address] Jan, [facility] [id number] [place] [address] Jan, Injury of left ankle, initial encounter S99.912A ; Fall down stairs, initial encounter W10.8XXA and BMI 45.0-49.9, adult Z68.42 [facility] [id number] [place] [address] Jan, COPD exacerbation J44.1 [facility] [address] [address] Jan, Dysfunction of both eustachian 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 [facility] [address] [address] 08 Jan, 2018 Bronchitis J40 and Acute suppurative otitis media of left ear without spontaneous rupture of tympanic membrane, recurrence not specified H66.002 [facility] [id number] [place] [address] Jan, [facility] [address] [address] Jan, Bronchitis J40 and BMI 40.0-44.9, adult Z68.41 [facility] [id number] [place] [address] Jan, [facility] [id number] [place] [address] Dec, Gastric pain R10.9 [facility] [address] [address] Dec, [facility] [id number] [place] [address] Dec, History of illicit drug use Z87.898 ; Neuropathy G62.9 ; COPD (chronic obstructive pulmonary disease) with chronic bronchitis J44.9 and Acute pain of right knee M25.561 [facility] [id number] [place] [address] Nov, [facility] [id number] [place] [address] 15 Nov, 2017 Onychomycosis B35.1 and Contusion of left foot, subsequent encounter S90.32XD [place] [address] [address] Nov, COPD exacerbation J44.1 [facility] [id number] [place] [address] Sep, [facility] [id number] [place] [address] Sep, Dysthymic disorder F34.1 ; Tobacco abuse Z72.0 ; Pain in right knee M25.561 ; Pain in left knee M25.562 ; Other chronic pain G89.29 and BMI 40.0- 44.9, adult Z68.41 [facility] [id number] [place] [address] Aug, Major depressive disorder, recurrent episode, moderate F33.1 and 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 [facility] [id number] [place] [address] Aug, Dysthymic disorder F34.1 ; Non-pressure chronic ulcer of left thigh, unspecified ulcer stage L97.129 ; Tobacco abuse Z72.0 ; Mild chronic obstructive pulmonary disease J44.9 and Forgetfulness R68.89 [facility] [facility] [id number] [place] [address] Aug, Onychomycosis B35.1 ; Fissure in skin of foot R23.4 and Foot callus L84 [facility] [id number] [place] [address] Jul, Right medial knee pain M25.561 ; Upper respiratory tract infection, unspecified type J06.9 and BMI 40.0-44.9, adult Z68.41 [facility] [address], [place] [address] Jul, Nausea and vomiting, intractability of vomiting not specified, unspecified vomiting type R11.2 ; Left ear pain H92.02 and Gastric pain R10.9 [facility] [id number] [place] [address] Apr, Encounter for immunization Z23 [facility] [id number] [place] [address] Apr, Onychomycosis B35.1 ; Xerosis of skin L85.3 ; Neuropathy G62.9 and 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 [facility] [id number] [place] [address] Jan, Onychomycosis B35.1 and Neuropathy G62.9 [facility] [id number] [place] [address] Dec, [facility] [id number] [place] [address] Dec, [facility] [id number] [place] [address] Nov, [facility] [id number] [place] [address] Aug, [facility] [id number] [place] [address] Aug, [facility] [id number] [place] [address] Jul, [facility] [id number] [place] [address] Jul, [facility] [id number] [place] [address] Jul, Decubitus ulcer of left thigh, stage 2 L89.892 [facility] [address], [place] [address] 17 Jul, 2016 Decubitus ulcer of left thigh, stage 2 L89.892 [facility] [address], [place] [address] 17 Jul, 2016 [facility] [id number] [place] [address] 15 Jul, 2016 Decubitus ulcer of left thigh, stage 2 L89.892 [facility] [id number] [place] [address] 14 Jul, 2016 [facility] [id number] [place] [address] 13 Jul, 2016 Cellulitis of other specified site L03.818 ; Illicit drug use F19.90 and Decubitus ulcer of left thigh, stage 2 L89.892 [facility] [address], [place] [address] 08 Jul, 2016 [facility] [id number] [place] [address] 06 Jul, 2016 Cellulitis of right breast N61.0 [facility] [address], [place] [address] Jun, [facility] [id number] [place] [address] Jun, [facility] [address], [place] [address] Jun, Wheezing R06.2 and Arthralgia, unspecified joint M25.50 [facility] [address], [place] [address] May, [facility] [id number] [place] [address] May, [facility] [id number] [place] [address] May, [facility] [id number] [place] [address] 05 May, 2016 Shortness of breath R06.02 [facility] [id number] [place] [address] 02 May, 2016 Onychomycosis B35.1 and Fissure in skin of foot R23.4 [facility] [id number] [place] [address] Apr, [facility] [address] [address] 18 Apr, 2016 Dizziness R42 [facility] [id number] [place] [address] 14 Apr, 2016 Shortness of breath R06.02 ; Essential hypertension I10 ; Dizziness R42 and On home oxygen therapy Z99.81 [facility] [id number] [place] [address] Apr, [facility] [id number] [place] [address] 08 Apr, 2016 [facility] [id number] [place] [address] 07 Apr, 2016 [facility] [id number] [place] [address] Apr, [facility] [id number] [place] [address] Apr, [facility] [address] [address] Apr, [facility] [id number] [place] [address] Apr, [facility] [id number] [place] [address] Mar, Mild chronic obstructive pulmonary disease J44.9 [facility] [id number] [place] [address] Mar, [facility] [id number] [place] [address] Mar, Epigastric pain R10.13 ; Low back pain M54.5 ; Other chronic pain G89.29 and Breast cancer screening Z12.39 [facility] [id number] [place] [address] Mar, [facility] [id number] [place] [address] Mar, [facility] [id number] [place] [address] Feb, [facility] [id number] [place] [address] Feb, [facility] [id number] [place] [address] Feb, Fissure in skin of foot R23.4 and Onychomycosis B35.1 [facility] [id number] [place] [address] Jan, Agoraphobia F40.00 [facility] [id number] [place] [address] Dec, Agoraphobia F40.00 [facility] [id number] [place] [address] Dec, Mild persistent asthma without complication J45.30 ; Dysthymic disorder F34.1 and Upper respiratory tract infection, unspecified type J06.9 [facility] [id number] [place] [address] Nov, Agoraphobia F40.00 [facility] [id number] [place] [address] October, Agoraphobia F40.00 [facility] [id number] [place] [address] Sep, Panic disorder without agoraphobia F41.0 ; Agoraphobia F40.00 and Dysthymic disorder F34.1 [facility] [id number] [place] [address] Sep, Panic attacks F41.0 [facility] [facility] [address] [address] Sep, [facility] [id number] [place] [address] Sep, Panic disorder without agoraphobia F41.0 ; Varicose veins of both lower extremities I83.93 and Fatigue R53.83 [facility] [id number] [place] [address] Sep, Fatigue R53.83 [facility] [id number] [place] [address] Sep, [facility] [facility] [address] [address] Aug, [facility] [id number] [place] [address] Aug, [facility] [id number] [place] [address] Aug, 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 [facility] [id number] [place] [address] Aug, Panic disorder without agoraphobia F41.0 ; Agoraphobia F40.00 and Dysthymic disorder F34.1 [facility] [id number] [place] [address] Aug, Shortness of breath R06.02 ; Panic attacks F41.0 ; COPD (chronic obstructive pulmonary disease) J44.9 ; Tobacco abuse Z72.0 ; Family history of diabetes mellitus Z83.3 and Weight gain R63.5 [facility] [id number] [place] [address] Aug, [facility] [id number] [place] [address] Jul, [facility] [id number] [place] [address] Jun, Onychomycosis B35.1 ; Neuropathy G62.9 and Impaired circulation I99.9 [facility] [facility] [address] [address] Mar, Fissure in skin of foot R23.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 [facility] [id number] [place] [address] Feb, Family history of coronary arteriosclerosis V17.3 [facility] [id number] [place] [address] 15 Feb, 2015 Allergic rhinitis due to pollen 477.0 ; Unspecified breast screening V76.10 ; Anxiety 300.00 and Family history of coronary arteriosclerosis V17.3 [facility] [id number] [place] [address] Jan, [facility] [id number] [place] [address] Dec, [facility] [id number] [place] [address] Dec, Onychomycosis 110.1 and Skin fissures 709.8 [facility] [id number] [place] [address] Sep, [facility] [id number] [place] [id number] Sep, [place] [address] [place] [id number] [place] [address] Aug, [facility] [address] [id number] [place] [address] Aug, [facility] [place] [facility] [address] [id number] [place] [address] Jul, [facility] [address] [id number] [place] [address] Jul, [facility] [address] [id number] [place] [address] Jun, [facility] [address] [id number] [place] [address] Jun, [facility] [address] [id number] [place] [address] Jun, [facility] [address] [id number] [place] [address] Jun, [facility] [address] [id number] [place] [address] Jun, [facility] [address] [id number] [place] [address] May, [facility] [address] [id number] [place] [address] May, [facility] [place] [facility] [address] [id number] [place] [address] May, [facility] [place] [facility] [address] [id number] [place] [address] May, [facility] [place] [facility] [address] [id number] [place] [address] May, [facility] [place] [facility] [address] [id number] [place] [address] May, [facility] [place] [facility] [address] [id number] [place] [address] May, [facility] [place] [facility] [address] [id number] [place] [address] May, [facility] [place] [facility] [address] [id number] [place] [address] Apr, [facility] [place] [facility] [address] [address] [id number] [place] [address] Apr, [facility] [place] [facility] [address] [id number] [place] [address] Apr, [facility] [place] [facility] [address] [id number] [place] [address] Apr, [facility] [place] [facility] [address] [id number] [place] [address] Apr, [facility] [place] [facility] [address] [id number] [place] [address] Apr, [facility] [place] [facility] [address] [id number] [place] [address] Apr, [facility] [place] [facility] [address] [id number] [place] [address] Apr, [facility] [place] [facility] [address] [id number] [place] [address] Apr, [facility] [place] [facility] [address] [id number] [place] [address] Apr, [facility] [place] [facility] [address] [id number], [place] [address] Mar, [facility] [place] [facility] [address] [id number] [place] [address] Mar, [facility] [place] [facility] [address] [id number] [place] [address] Mar, [facility] [place] [facility] [address] [id number] [place] [address] Mar, [facility] [place] [facility] [address] [id number] [place] [address] Mar, 2013 [facility] [place] [facility] [address] [id number] [place] [address] Mar, 2013 [facility] [place] [facility] [address] [id number] [place] [address] Mar, [facility] [place] [facility] [address] [id number] [place] [address] Mar, 2013 [facility] [place] [facility] [address] [id number] [place] [address] 24 Mar, 2014 [facility] [place] [facility] [address] [id number] [place] [address] Mar, [facility] [place] [facility] [address] [id number] [place] [address] Mar, 2013 [facility] [place] [facility] [address] [id number] [place] [address] Mar, [facility] [place] [facility] [address] [id number] [place] [address] Mar, 2013 [facility] [place] [facility] [address] [id number] [place] [address] Mar, 2013 [facility] [place] [facility] [address] [id number] [place] [address] Mar, 2013 [facility] [place] [facility] [address] [id number] [place] [address] 20 Mar, 2013 [facility] [place] [facility] [address] [id number], [place] [address] 20 Mar, 2013 [facility] [place] [facility] [address] [id number], [place] [address] 16 Mar, 2013 [facility] [place] [facility] [address] [id number], [place] [address] 16 Mar, 2013 [facility] [place] [facility] [address] [id number], [place] [address] 15 Mar, 2013 [facility] [place] [facility] [address] [id number] [place] [address] 14 Mar, 2013 [facility] [place] [facility] [address] [id number] [place] [address] 14 Mar, 2013 [facility] [place] [facility] [address] [id number] [place] [address] 14 Mar, 2013 [facility] [place] [facility] [address] [id number] [place] [address] 14 Mar, 2013 [facility] [place] [facility] [address] [id number] [place] [address] Mar, 2013 [facility] [place] [facility] [address] [id number] [place] [address] Mar, 2013 [facility] [place] [facility] [address] [id number] [place] [address] Mar, 2013 [facility] [place] [facility] [address] [id number] [place] [address] 09 Mar, 2013 [facility] [place] [facility] [address] [id number] [place] [address] 30 Sep, 2013 [facility] [place] [facility] [address] [id number] [place] [address] 30 Sep, 2013 [facility] [place] [facility] [address] [id number] [place] [address] 30 Sep, 2013 [facility] [place] [facility] [address] [id number] [place] [address] 30 Sep, 2013 [facility] [place] [facility] [address] [id number] [place] [address] 26 Sep, 2013 [facility] [place] [facility] [address] [id number] [place] [address] 26 Sep, 2013 [facility] [place] [facility] [address] [id number] [place] [address] 09 Sep, 2013 [facility] [place] [facility] [address] [id number] [place] [address] Feb, 2013 [facility] [place] [facility] [address] [id number] [place] [address] Feb, 2013 [facility] [place] [facility] [address] [id number] [place] [address] Feb, 2013 [facility] [place] [facility] [address] [id number] [place] [address] Feb, 2013 [facility] [place] [facility] [address] [id number] [place] [address] Feb, 2013 [facility] [place] [facility] [address] [id number] [place] [address] Jan, [facility] [place] [facility] [address] [id number] [place] [address] Jan, [facility] [place] [facility] [address] [id number] [place] [address] Jan, [facility] [place] [facility] [address] [id number] [place] [address] Jan, [facility] [place] [facility] [address] [id number] [place] [address] Jan, [facility] [place] [facility] [address] [id number] [place] [address] Jan, [facility] [place] [facility] [address] [id number], [place] [address] Jan, [facility] [place] [facility] [address] [id number], [place] [address] Jan, [facility] [place] [facility] [address] [id number] [place] [address] Jan, [facility] [place] [facility] [address] [id number] [place] [address] Jan, [facility] [place] [facility] [address] [id number] [place] [address] Jan, [facility] [place] [facility] [address] [id number] [place] [address] Jan, [facility] [place] [facility] [address] [id number] [place] [address] Jan, [facility] [place] [facility] [address] [id number] [place] [address] Dec, [facility] [place] [facility] [address] [id number] [place] [address] Dec, [facility] [place] [facility] [address] [id number] [place] [address] Dec, [facility] [place] [facility] [address] [id number] [place] [address] Dec, [facility] [place] [facility] [address] [id number] [place] [address] Dec, [facility] [place] [facility] [address] [id number] [place] [address] Dec, [facility] [place] [facility] [address] [id number] [place] [address] Dec, [facility] [place] [facility] [address] [id number] [place] [address] Dec, [facility] [place] [facility] [address] [id number] [place] [address] Dec, [facility] [place] [facility] [address] [id number] [place] [address] Dec, [facility] [place] [facility] [address] [id number] [place] [address] Dec, [facility] [place] [facility] [address] [id number] [place] [address] Dec, [facility] [place] [facility] [address] [id number] [place] [address] Dec, [facility] [place] [facility] [address] [id number] [place] [address] Dec, [facility] [place] [facility] [address] [id number] [place] [address] Dec, 2013 [facility] [place] [facility] [address] [id number] [place] [address] Dec, [facility] [place] [facility] [address] [id number] [place] [address] Dec, [facility] [place] [facility] [address] [id number] [place] [address] Dec, [facility] [place] [facility] [address] [id number] [place] [address] Nov, [facility] [place] [facility] [address] [id number] [place] [address] Nov, [facility] [place] [facility] [address] [id number] [place] [address] Nov, [facility] [place] [facility] [address] [id number] [place] [address] Nov, [facility] [place] [facility] [address] [id number] [place] [address] Nov, [facility] [place] [facility] [address] [id number] [place] [address] Nov, [facility] [place] [facility] [address] [id number] [place] [address] Nov, [facility] [place] [facility] [address] [id number] [place] [address] Nov, [facility] [place] [facility] [address] [id number] [place] [address] Nov, [facility] [place] [facility] [address] [id number] [place] [address] Nov, [facility] [place] [facility] [address] [id number] [place] [address] Nov, [facility] [place] [facility] [address] [id number] [place] [address] Nov, [facility] [place] [facility] [address] [id number] [place] [address] Nov, [facility] [place] [facility] [address] [id number] [place] [address] Nov, [facility] [place] [facility] [address] [id number] [place] [address] Nov, [facility] [place] [facility] [address] [id number] [place] [address] Nov, [facility] [place] [facility] [address] [id number] [place] [address] Nov, [facility] [place] [facility] [address] [id number] [place] [address] Nov, [facility] [place] [facility] [address] [id number] [place] [address] Nov, [facility] [place] [facility] [address] [id number] [place] [address] Nov, [facility] [place] [facility] [address] [id number] [place] [address] October, [facility] [place] [facility] [address] [id number] [place] [address] October, [facility] [place] [facility] [address] [id number] [place] [address] October, [facility] [place] [facility] [address] [id number] [place] [address] October, [facility] [place] [facility] [address] [id number] [place] [address] Sep, [facility] [place] [facility] [address] [id number] [place] [address] Sep, [facility] [place] [facility] [address] [id number] [place] [address] Sep, [facility] [place] [facility] [address] [id number] [place] [address] 17 Sep, 2013 [facility] [address] [id number] [place] [address] 10 Sep, 2013 [facility] [place] [facility] [address] [id number] [place] [address] Sep, [facility] [place] [facility] [address] [id number] [place] [address] Sep, [facility] [place] [facility] [address] [id number] [place] [address] Sep, [facility] [place] [facility] [address] [id number] [place] [address] Sep, [facility] [place] [facility] [address] [id number] [place] [address] Aug, [facility] [place] [facility] [address] [id number] [place] [address] Aug, [facility] [place] [facility] [address] [id number] [place] [address] Aug, [facility] [place] [facility] [address] [id number] [place] [address] Aug, [facility] [place] [facility] [address] [id number] [place] [address] Aug, [facility] [place] [facility] [address] [id number] [place] [address] Aug, [facility] [place] [facility] [address] [id number] [place] [address] Aug, [facility] [place] [facility] [address] [id number] [place] [address] Aug, [facility] [place] [facility] [address] [id number] [place] [address] Jul, [facility] [place] [facility] [address] [id number] [place] [address] Jul, [facility] [place] [facility] [address] [id number] [place] [address] Jun, [facility] [place] [facility] [address] [id number] [place] [address] Jun, [facility] [place] [facility] [address] [id number] [place] [address] Jun, [facility] [place] [facility] [address] [id number] [place] [address] Jun, [facility] [place] [facility] [address] [id number] [place] [address] Jun, [facility] [place] [facility] [address] [id number] [place] [address] Jun, [facility] [place] [facility] [address] [id number] [place] [address] Jun, [facility] [place] [facility] [address] [id number] [place] [address] Jun, [facility] [place] [facility] [address] [id number] [place] [address] Jun, [facility] [place] [facility] [address] [id number] [place] [address] Jun, [facility] [place] [facility] [address] [id number], [place] [address] Jun, [facility] [place] [facility] [address] [id number], [place] [address] Jun, [facility] [place] [facility] [address] [id number] [place] [address] May, [facility] [place] [facility] [address] [id number] [place] [address] May, [facility] [place] [facility] [address] [id number] [place] [address] May, [facility] [place] [facility] [address] [id number] [place] [address] 31 May, 2013 [facility] [address] [id number] [place] [address] 31 May, 2013 [facility] [address] [id number] [place] [address] 31 May, 2013 [facility] [address] [id number] [place] [address] 26 May, 2013 [facility] [place] [facility] [address] [id number] [place] [address] May, [facility] [address] [id number] [place] [address] May, [facility] [address] [id number] [place] [address] 16 May, 2013 [facility] [address] [id number] [place] [address] 16 May, 2013 [facility] [address] [id number] [place] [address] May, [facility] [address] [id number] [place] [address] May, [facility] [address] [id number] [place] [address] Apr, [facility] [place] [facility] [address] [id number] [place] [address] Apr, [facility] [place] [facility] [address] [id number], [place] [address] Mar, [facility] [place] [facility] [address] [id number] [place] [address] Mar, [facility] [place] [facility] [address] [id number] [place] [address] 24 Feb, 2013 [facility] [place] [facility] [address] [id number], [place] [address] 23 Feb, 2013 [facility] [place] [facility] [address] [id number] [place] [address] Feb, [facility] [place] [facility] [address] [id number] [place] [address] Feb, [facility] [place] [facility] [address] [id number] [place] [address] Jan, [facility] [place] [facility] [address] [id number] [place] [address] Jan, [facility] [place] [facility] [address] [id number] [place] [address] Jan, [facility] [place] [facility] [address] [id number] [place] [address] Jan, [facility] [place] [facility] [address] [id number] [place] [address] Jan, [facility] [place] [facility] [address] [id number] [place] [address] Jan, [facility] [place] [facility] [address] [id number] [place] [address] Dec, [facility] [place] [facility] [address] [id number] [place] [address] Dec, [facility] [place] [facility] [address] [id number] [place] [address] Dec, [facility] [place] [facility] [address] [id number] [place] [address] Dec, [facility] [place] [facility] [address] [id number] [place] [address] Nov, [facility] [place] [facility] [address] [id number] [place] [address] October, [facility] [place] [facility] [address] [id number] [place] [address] October, [facility] [place] [facility] [address] [id number], [place] [address] October, [facility] [place] [facility] [address] [id number] [place] [address] Sep, [facility] [place] [facility] [address] [id number] [place] [address] Sep, [facility] [place] [facility] [address] [facility] [id number] [place] [address] Jun, [facility] [place] [facility] [address] [id number] [place] [address] Jun, [facility] [place] [facility] [address] [id number] [place] [address] Jun, [facility] [place] [facility] [address] [id number] [place] [address] Apr, [facility] [place] [facility] [address] [id number] [place] [address] Apr, [facility] [place] [facility] [address] [id number] [place] [address] Apr, [facility] [place] [facility] [address] [id number] [place] [address] Apr, [facility] [place] [facility] [address] [id number] [place] [address] Mar, [facility] [place] [facility] [address] [id number], [place] [address] Mar, [facility] [place] [facility] [address] [id number], [place] [address] Mar, [facility] [place] [facility] [address] [id number] [place] [address] Mar, [facility] [place] [facility] [address] [facility] [id number], [place] [address] Feb, [facility] [place] [facility] [address] [id number] [place] [address] Feb, [facility] [place] [facility] [address] [id number] [place] [address] Feb, [facility] [address] [id number] [place] [address] Jan, [facility] [address] [id number] [place] [address] Jan, [facility] [address] [id number] [place] [address] Jan, [facility] [address] [id number] [place] [address] Jan, [facility] [address] [id number] [place] [address] Dec, [facility] [address] [id number] [place] [address] Dec, [facility] [address] [id number] [place] [address] Nov, [facility] [address] [id number] [place] [address] Nov, [facility] [address] [id number] [place] [address] October, [facility] [address] [id number] [place] [address] October, [facility] [address] [id number] [place] [address] October, [facility] [address] [id number] [place] [address] Sep, [facility] [place] [facility] [address] [id number] [place] [address] Sep, [facility] [place] [facility] [address] [id number] [place] [address] Sep, [facility] [address] [id number] [place] [address] Aug, [facility] [address] [id number] [place] [address] 26 Aug, 2011 [facility] [place] [facility] [address] [id number] [place] [address] 15 Aug, 2011 [facility] [place] [facility] [address] [id number] [place] [address] 15 Aug, 2011 [facility] [place] [facility] [address] [id number] [place] [address] 07 Aug, 2011 [facility] [place] [facility] [address] [id number] [place] [address] 23 Jul, 2011 [facility] [place] [facility] [address] [id number] [place] [address] 16 Jul, 2011 [facility] [place] [facility] [address] [id number] [place] [address] 13 Jul, 2011 [facility] [place] [facility] [address] [id number] [place] [address] Jul, [facility] [place] [facility] [address] [id number] [place] [address] 07 Jul, 2011 [facility] [place] [facility] [address] [id number] [place] [address] 06 Jul, 2011 [facility] [place] [facility] [address] [id number] [place] [address] Jul, [facility] [place] [facility] [address] [id number] [place] [address] Jul, [facility] [place] [facility] [address] [id number] [place] [address] Jun, [facility] [place] [facility] [address] [id number] [place] [address] Jun, [facility] [place] [facility] [address] [id number] [place] [address] May, [facility] [place] [facility] [address] [id number] [place] [address] May, [facility] [address] [id number] [place] [address] May, [facility] [address] [id number] [place] [address] May, [facility] [address] [id number] [place] [address] Apr, [facility] [place] [facility] [address] [id number] [place] [address] Apr, [facility] [address] [id number] [place] [address] Apr, [facility] [address] [id number] [place] [address] Mar, [facility] [address] [id number] [place] [address] Mar, [facility] [address] [id number] [place] [address] Mar, [facility] [address] [id number] [place] [address] Mar, [facility] [address] [id number] [place] [address] Dec, [facility] [address] [id number] [place] [address] October, [facility] [address] [id number] [place] [address] May, [facility] [place] [facility] [address] [id number] [place] [address] May, [facility] [place] [facility] [address] [id number] [place] [address] May, [facility] [place] [facility] [address] [id number] [place] [address] May, [facility] [address] [id number] [address] Mar, [facility] [id number] [place] [address] Mar, [facility] [address] [id number] [address] May, [facility] [id number] [place] [address] May, [facility] [id number], [place] [address] May, [facility] [id number], [place] [address] May, [facility] [id number], [place] [address] Apr, [facility] [address] [id number] [address] Apr, [facility] [address] [id number] [address] October, IMMUNIZATIONS No Known Immunizations SOCIAL HISTORY [...]
--- OUTSIDE RECORDS SUMMARY | 2019-01-13 10:11 | XMS REPORT ---
Author Author RASHEED RAHMAN [facility] Address [address] [place] [address] Care Team Providers Care Sap Payroll Consultant Name Role Phone RASHEED RAHMAN Unavailable PROBLEMS Type Condition ICD9-CM Code [id number] Code Onset Dates Condition Status SNOMED Code Problem MRSA (methicillin resistant staph aureus) culture positive Z22.322 Active 517824781 Problem History of illicit drug use Z87.898 Active 334227399 Problem Snoring R06.83 Active 71264214 Problem Dysthymic disorder F34.1 Active 85125859 Problem Impaired circulation I99.9 Active 68203739 Problem 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 Active 88698251 Problem Major depressive disorder, recurrent episode, moderate F33.1 Active 432415371 Problem Mild persistent asthma without complication J45.30 Active 787316619 Problem Fatigue R53.83 Active 22943493 Problem Other chronic pain G89.29 Active 52324939 Problem Upper respiratory tract infection, unspecified type J06.9 Active 15853323 Problem On home oxygen therapy Z99.81 Active 736029373330 Problem Mild chronic obstructive pulmonary disease J44.9 Active 081785148 Problem Neuropathy G62.9 Active 964975355 Problem Essential hypertension I10 Active 59658342 Problem COPD exacerbation J44.1 Active 397328989 Problem COPD (chronic obstructive pulmonary disease) with chronic bronchitis J44.9 Active 550425432 Problem Exertional asthma J45.990 Active 20732971 Problem Swallowing problem R13.10 Active 415979016 Problem Agoraphobia F40.00 Active 27095458 Problem Hypertension, benign I10 Active 61596940 Problem Panic disorder without agoraphobia F41.0 Active 39787010 Problem Varicose veins of both lower extremities I83.93 Active 10736194 Problem 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 086241922 Problem Arthritis M19.90 Active 2180798 Problem Mood disorder F39 Active 68194098 Problem Psychotic disorder F29 Active 35590865 ALLERGIES No Information ENCOUNTERS Encounter Location Date Diagnosis [facility] [id number] [place] [address] Feb, [facility] [id number] [place] [address] Dec, [facility] [id number] [place] [address] Dec, [facility] [id number] [place] [address] Dec, [facility] [id number] [place] [address] Dec, Major depressive disorder, recurrent episode, moderate F33.1 [facility] [id number] [place] [address] Nov, Major depressive disorder, recurrent episode, moderate F33.1 ; Panic disorder without agoraphobia F41.0 and Morbid obesity E66.01 [facility] [id number] [place] [address] Nov, Morbid obesity E66.01 [facility] [id number] [place] [address] Nov, Major depressive disorder, recurrent episode, moderate F33.1 and Panic disorder without agoraphobia F41.0 [facility] [address] [place] [address] Nov, Allergic reaction, initial encounter T78.40XA and Morbid obesity E66.01 [facility] [id number] [place] [address] Nov, [facility] [id number] [place] [address] 13 Nov, 2018 Morbid obesity E66.01 ; Swallowing problem R13.10 and Hypertension, benign I10 [facility] [id number] [address] Nov, Morbid obesity E66.01 ; COPD exacerbation J44.1 and Non-recurrent acute suppurative otitis media of left ear without spontaneous rupture of tympanic membrane H66.002 [facility] [address], [place] [address] Nov, Onychomycosis B35.1 ; Neuropathy G62.9 and Fissure in skin of foot R23.4 [facility] [id number] [place] [address] October, Major depressive disorder, recurrent episode, moderate F33.1 ; Panic disorder without agoraphobia F41.0 and Morbid obesity E66.01 [facility] [address], [place] [address] October, Viral upper respiratory tract infection J06.9 [facility] [id number] [place] [address] October, [facility] [id number] [place] [address] October, Major depressive disorder, recurrent episode, moderate F33.1 and Panic disorder without agoraphobia F41.0 [facility] [address] [address] October, [facility] [address] [place] [address] October, [facility] [address] [place] [address] October, [facility] [id number] [place] [address] October, [facility] [id number] [place] [address] October, [facility] [id number] [place] [address] October, [facility] [address] [place] [address] October, Major depressive disorder, recurrent episode, moderate F33.1 and Panic disorder without agoraphobia F41.0 [facility] [id number] [place] [address] Sep, Morbid obesity E66.01 and Lumbar neuritis M54.16 [facility] [id number] [place] [address] Sep, Panic disorder without agoraphobia F41.0 and Major depressive disorder, recurrent episode, moderate F33.1 [facility] [id number] [place] [address] Sep, Gastroenteritis K52.9 ; Low back pain M54.5 ; Other chronic pain G89.29 and Morbid obesity E66.01 [facility] [id number] [place] [address] Sep, Major depressive disorder, recurrent episode, moderate F33.1 ; Panic disorder without agoraphobia F41.0 and 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 [facility] [id number] [place] [address] Sep, Panic disorder without agoraphobia F41.0 [facility] [id number] [place] [address] Sep, Panic disorder without agoraphobia F41.0 [facility] [id number] [place] [address] Aug, Panic disorder without agoraphobia F41.0 ; Major depressive disorder, recurrent episode, moderate F33.1 ; 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 ; Psychotic disorder F29 ; Tardive dyskinesia G24.01 and Morbid obesity E66.01 [facility] [id number] [place] [address] Aug, Dysthymic disorder F34.1 and Psychotic disorder F29 [facility] [id number] [place] [address] 28 Aug, 2018 Encounter for Medicare annual wellness exam Z00.00 ; Morbid obesity E66.01 and 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 [facility] [id number] [place] [address] 12 Aug, 2018 Dysthymic disorder F34.1 and Psychotic disorder F29 [facility] [address] [address] Aug, Neuropathy G62.9 ; Onychomycosis B35.1 and Xerosis of skin L85.3 [facility] [address] [address] 13 Jul, 2018 [facility] [address] [address] Jul, Mood disorder F39 ; Wheezing R06.2 ; Choking, initial encounter T17.308A and Coughing R05 [facility] [id number] [place] [address] Jul, Low back pain M54.5 [facility] [id number] [place] [address] Jun, Flu-like symptoms R68.89 ; BMI 45.0-49.9, adult Z68.42 ; COPD exacerbation J44.1 and Acute bronchitis J20.9 [facility] [id number] [place] [address] Jun, [facility] [id number] [place] [address] May, [facility] [address] [address] May, Onychomycosis B35.1 and 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 [facility] [id number] [place] [address] 17 May, 2018 Low back pain M54.5 and Edema leg R60.[address] [address] 11 May, 2018 BMI 45.0-49.9, adult Z68.42 ; Well woman exam with routine gynecological exam Z01.419 and Breast cancer screening Z12.31 [facility] [address] [address] 19 Apr, 2018 Arthritis M19.90 [facility] [address] [address] 16 Apr, 2018 Arthritis M19.90 and Otalgia of both ears H92.[address] [address] 28 Feb, 2018 [facility] [address] [address] 28 Feb, 2018 Low back pain M54.5 ; Other chronic pain G89.29 ; Exertional asthma J45.990 and Encounter for immunization Z23 [address] [address] 21 Feb, 2018 Skin fissures R23.4 ; Neuropathy G62.9 and Onychomycosis B35.[address] [address] 05 Feb, 2018 Dysthymic disorder F34.1 [facility] [address] [address] 04 Feb, 2018 [facility] [address] [address] Jan, [facility] [address] [address] Jan, Abrasion of right elbow, initial encounter S50.311A ; Abrasion, right knee, initial encounter S80.211A and Sprain of other ligament of right ankle, initial encounter S93.491A [facility] [id number] [place] [address] Jan, [facility] [id number] [place] [address] Jan, Injury of left ankle, initial encounter S99.912A ; Fall down stairs, initial encounter W10.8XXA and BMI 45.0-49.9, adult Z68.42 [facility] [id number] [place] [address] Jan, COPD exacerbation J44.1 [facility] [address] [address] Jan, Dysfunction of both eustachian 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 [facility] [address] [address] 08 Jan, 2018 Bronchitis J40 and Acute suppurative otitis media of left ear without spontaneous rupture of tympanic membrane, recurrence not specified H66.002 [facility] [id number] [place] [address] Jan, [facility] [address] [address] Jan, Bronchitis J40 and BMI 40.0-44.9, adult Z68.41 [facility] [id number] [place] [address] Jan, [facility] [id number] [place] [address] Dec, Gastric pain R10.9 [facility] [address] [address] Dec, [facility] [id number] [place] [address] Dec, History of illicit drug use Z87.898 ; Neuropathy G62.9 ; COPD (chronic obstructive pulmonary disease) with chronic bronchitis J44.9 and Acute pain of right knee M25.561 [facility] [id number] [place] [address] Nov, [facility] [id number] [place] [address] 15 Nov, 2017 Onychomycosis B35.1 and Contusion of left foot, subsequent encounter S90.32XD [facility] [address] [address] Nov, COPD exacerbation J44.1 [facility] [id number] [place] [address] Sep, [facility] [id number] [place] [address] Sep, Dysthymic disorder F34.1 ; Tobacco abuse Z72.0 ; Pain in right knee M25.561 ; Pain in left knee M25.562 ; Other chronic pain G89.29 and BMI 40.0- 44.9, adult Z68.41 [facility] [id number] [place] [address] Aug, Major depressive disorder, recurrent episode, moderate F33.1 and 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 [facility] [id number] [place] [address] Aug, Dysthymic disorder F34.1 ; Non-pressure chronic ulcer of left thigh, unspecified ulcer stage L97.129 ; Tobacco abuse Z72.0 ; Mild chronic obstructive pulmonary disease J44.9 and Forgetfulness R68.89 [facility] [address] [place] [address] Aug, Onychomycosis B35.1 ; Fissure in skin of foot R23.4 and Foot callus L84 [facility] [address] [place] [address] Jul, Right medial knee pain M25.561 ; Upper respiratory tract infection, unspecified type J06.9 and BMI 40.0-44.9, adult Z68.41 [facility] [address], [place] [address] Jul, Nausea and vomiting, intractability of vomiting not specified, unspecified vomiting type R11.2 ; Left ear pain H92.02 and Gastric pain R10.9 [facility] [id number] [place] [address] Apr, Encounter for immunization Z23 [facility] [id number] [place] [address] Apr, Onychomycosis B35.1 ; Xerosis of skin L85.3 ; Neuropathy G62.9 and 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 [facility] [id number] [place] [address] Jan, Onychomycosis B35.1 and Neuropathy G62.9 [facility] [id number] [place] [address] Dec, [facility] [id number] [place] [address] Dec, [facility] [id number] [place] [address] Nov, [facility] [id number] [place] [address] Aug, [facility] [id number] [place] [address] Aug, [facility] [id number] [place] [address] Jul, [facility] [id number] [place] [address] Jul, [facility] [id number] [place] [address] Jul, Decubitus ulcer of left thigh, stage 2 L89.892 [facility] [address], [place] [address] 17 Jul, 2016 Decubitus ulcer of left thigh, stage 2 L89.892 [facility] [address], [place] [address] 17 Jul, 2016 [facility] [id number] [place] [address] 15 Jul, 2016 Decubitus ulcer of left thigh, stage 2 L89.892 [facility] [address] [place] [address] 14 Jul, 2016 [facility] [address] [place] [address] 13 Jul, 2016 Cellulitis of other specified site L03.818 ; Illicit drug use F19.90 and Decubitus ulcer of left thigh, stage 2 L89.892 [facility] [address], [place] [address] 08 Jul, 2016 [facility] [id number] [place] [address] 06 Jul, 2016 Cellulitis of right breast N61.0 [facility] [address], [place] [address] Jun, [facility] [address] [place] [address] Jun, [facility] [address], [place] [address] Jun, Wheezing R06.2 and Arthralgia, unspecified joint M25.50 [facility] [address], [place] [address] May, [facility] [address] [place] [address] May, [facility] [id number] [place] [address] May, [facility] [id number] [place] [address] 05 May, 2016 Shortness of breath R06.02 [facility] [id number] [place] [address] 02 May, 2016 Onychomycosis B35.1 and Fissure in skin of foot R23.4 [facility] [id number] [place] [address] Apr, [facility] [address] [address] 18 Apr, 2016 Dizziness R42 [facility] [id number] [place] [address] 14 Apr, 2016 Shortness of breath R06.02 ; Essential hypertension I10 ; Dizziness R42 and On home oxygen therapy Z99.81 [facility] [id number] [place] [address] Apr, [facility] [id number] [place] [address] 08 Apr, 2016 [facility] [id number] [place] [address] 07 Apr, 2016 [facility] [id number] [place] [address] Apr, [facility] [id number] [place] [address] Apr, [facility] [address] [address] Apr, [facility] [id number] [place] [address] Apr, [facility] [id number] [place] [address] Mar, Mild chronic obstructive pulmonary disease J44.9 [facility] [address] [place] [address] Mar, [facility] [address] [place] [address] Mar, Epigastric pain R10.13 ; Low back pain M54.5 ; Other chronic pain G89.29 and Breast cancer screening Z12.39 [facility] [address] [place] [address] Mar, [facility] [id number] [place] [address] Mar, [facility] [id number] [place] [address] Feb, [facility] [id number] [place] [address] Feb, [facility] [id number] [place] [address] Feb, Fissure in skin of foot R23.4 and Onychomycosis B35.1 [facility] [id number] [place] [address] Jan, Agoraphobia F40.00 [facility] [id number] [place] [address] Dec, Agoraphobia F40.00 [facility] [id number] [place] [address] Dec, Mild persistent asthma without complication J45.30 ; Dysthymic disorder F34.1 and Upper respiratory tract infection, unspecified type J06.9 [facility] [id number] [place] [address] Nov, Agoraphobia F40.00 [facility] [id number] [place] [address] October, Agoraphobia F40.00 [facility] [id number] [place] [address] Sep, Panic disorder without agoraphobia F41.0 ; Agoraphobia F40.00 and Dysthymic disorder F34.1 [facility] [id number] [place] [address] Sep, Panic attacks F41.0 [facility] [address] [address] Sep, [facility] [id number] [place] [address] Sep, Panic disorder without agoraphobia F41.0 ; Varicose veins of both lower extremities I83.93 and Fatigue R53.83 [facility] [id number] [place] [address] Sep, Fatigue R53.83 [facility] [id number] [place] [address] Sep, [facility] [address] [address] Aug, [facility] [id number] [place] [address] Aug, [facility] [id number] [place] [address] Aug, Panic disorder without agoraphobia F41.0 ; Agoraphobia F40.00 and Dysthymic disorder F34.1 [facility] [id number] [place] [address] Aug, 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 [facility] [id number] [place] [address] Aug, Shortness of breath R06.02 ; Panic attacks F41.0 ; COPD (chronic obstructive pulmonary disease) J44.9 ; Tobacco abuse Z72.0 ; Family history of diabetes mellitus Z83.3 and Weight gain R63.5 [facility] [id number] [place] [address] Aug, [facility] [id number] [place] [address] Jul, [facility] [id number] [place] [address] Jun, Onychomycosis B35.1 ; Neuropathy G62.9 and Impaired circulation I99.9 [facility] [address] [address] Mar, Fissure in skin of foot R23.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 [facility] [id number] [place] [address] Feb, Family history of coronary arteriosclerosis V17.3 [facility] [id number] [place] [address] 15 Feb, 2015 Allergic rhinitis due to pollen 477.0 ; Unspecified breast screening V76.10 ; Anxiety 300.00 and Family history of coronary arteriosclerosis V17.3 [facility] [address] [place] [address] Jan, [facility] [id number] [place] [address] Dec, [facility] [id number] [place] [address] Dec, Onychomycosis 110.1 and Skin fissures 709.8 [facility] [id number] [place] [address] Sep, [facility] [address] [place] [address] Sep, [facility] [id number] [place] [address] Aug, [facility] [address] [id number] [place] [address] Aug, [facility] [place] [facility] [address] [id number] [place] [address] Jul, [facility] [address] [id number] [place] [address] Jul, [facility] [address] [id number] [place] [address] Jun, [facility] [address] [id number] [place] [address] Jun, [facility] [address] [id number] [place] [address] Jun, [facility] [address] [id number] [place] [address] Jun, [facility] [address] [id number] [place] [address] Jun, [facility] [address] [id number] [place] [address] May, [facility] [address] [id number] [place] [address] May, [facility] [place] [facility] [address] [id number] [place] [address] May, [facility] [place] [facility] [address] [id number] [place] [address] May, [facility] [place] [facility] [address] [id number] [place] [address] May, [facility] [place] [facility] [address] [id number] [place] [address] May, [facility] [place] [facility] [address] [id number] [place] [address] May, [facility] [place] [facility] [address] [id number] [place] [address] May, [facility] [place] [facility] [address] [id number] [place] [address] Apr, [facility] [place] [facility] [address] [id number] [place] [address] Apr, [facility] [place] [facility] [address] [id number] [place] [address] Apr, [facility] [place] [facility] [address] [id number] [place] [address] Apr, [facility] [place] [facility] [address] [id number] [place] [address] Apr, [facility] [place] [facility] [address] [id number] [place] [address] Apr, [facility] [place] [facility] [address] [id number] [place] [address] Apr, [facility] [place] [facility] [address] [id number] [place] [address] Apr, [facility] [place] [facility] [address] [id number] [place] [address] Apr, [facility] [place] [facility] [address] [id number] [place] [address] Apr, [facility] [place] [facility] [address] [id number], [place] [address] Mar, [facility] [place] [facility] [address] [id number] [place] [address] Mar, [facility] [place] [facility] [address] [id number] [place] [address] Mar, [facility] [place] [facility] [address] [id number] [place] [address] Mar, [facility] [place] [facility] [address] [id number] [place] [address] Mar, 2013 [facility] [place] [facility] [address] [id number] [place] [address] Mar, 2013 [facility] [place] [facility] [address] [id number] [place] [address] Mar, [facility] [place] [facility] [address] [id number] [place] [address] Mar, 2013 [facility] [place] [facility] [address] [id number] [place] [address] 24 Mar, 2014 [facility] [place] [facility] [address] [id number] [place] [address] Mar, [facility] [place] [facility] [address] [id number] [place] [address] Mar, 2013 [facility] [place] [facility] [address] [id number] [place] [address] Mar, [facility] [place] [facility] [address] [id number] [place] [address] Mar, 2013 [facility] [place] [facility] [address] [id number] [place] [address] Mar, 2013 [facility] [place] [facility] [address] [id number] [place] [address] Mar, 2013 [facility] [place] [facility] [address] [id number] [place] [address] 20 Mar, 2013 [facility] [place] [facility] [address] [id number], [place] [address] 20 Mar, 2013 [facility] [place] [facility] [address] [id number], [place] [address] 16 Mar, 2013 [facility] [place] [facility] [address] [id number], [place] [address] 16 Mar, 2013 [facility] [place] [facility] [address] [id number], [place] [address] 15 Mar, 2013 [facility] [place] [facility] [address] [id number] [place] [address] 14 Mar, 2013 [facility] [place] [facility] [address] [id number] [place] [address] 14 Mar, 2013 [facility] [place] [facility] [address] [id number] [place] [address] 14 Mar, 2013 [facility] [place] [facility] [address] [id number] [place] [address] 14 Mar, 2013 [facility] [place] [facility] [address] [id number] [place] [address] Mar, 2013 [facility] [place] [facility] [address] [id number] [place] [address] Mar, 2013 [facility] [place] [facility] [address] [id number] [place] [address] Mar, 2013 [facility] [place] [facility] [address] [id number] [place] [address] 09 Mar, 2013 [facility] [place] [facility] [address] [id number] [place] [address] 30 Sep, 2013 [facility] [place] [facility] [address] [id number] [place] [address] 30 Sep, 2013 [facility] [place] [facility] [address] [id number] [place] [address] 30 Sep, 2013 [facility] [place] [facility] [address] [id number] [place] [address] 30 Sep, 2013 [facility] [place] [facility] [address] [id number] [place] [address] 26 Sep, 2013 [facility] [place] [facility] [address] [id number] [place] [address] 26 Sep, 2013 [facility] [place] [facility] [address] [id number] [place] [address] 09 Sep, 2013 [facility] [place] [facility] [address] [id number] [place] [address] Feb, 2013 [facility] [place] [facility] [address] [id number] [place] [address] Feb, 2013 [facility] [place] [facility] [address] [id number] [place] [address] Feb, 2013 [facility] [place] [facility] [address] [id number] [place] [address] Feb, 2013 [facility] [place] [facility] [address] [id number] [place] [address] Feb, 2013 [facility] [place] [facility] [address] [id number] [place] [address] Jan, [facility] [place] [facility] [address] [id number] [place] [address] Jan, [facility] [place] [facility] [address] [id number] [place] [address] Jan, [facility] [place] [facility] [address] [id number] [place] [address] Jan, [facility] [place] [facility] [address] [id number] [place] [address] Jan, [facility] [place] [facility] [address] [id number] [place] [address] Jan, [facility] [place] [facility] [address] [id number], [place] [address] Jan, [facility] [place] [facility] [address] [id number], [place] [address] Jan, [facility] [place] [facility] [address] [id number] [place] [address] Jan, [facility] [place] [facility] [address] [id number] [place] [address] Jan, [facility] [place] [facility] [address] [id number] [place] [address] Jan, [facility] [place] [facility] [address] [id number] [place] [address] Jan, [facility] [place] [facility] [address] [id number] [place] [address] Jan, [facility] [place] [facility] [address] [id number] [place] [address] Dec, [facility] [place] [facility] [address] [id number] [place] [address] Dec, [facility] [place] [facility] [address] [id number] [place] [address] Dec, [facility] [place] [facility] [address] [id number] [place] [address] Dec, [facility] [place] [facility] [address] [id number] [place] [address] Dec, [facility] [place] [facility] [address] [id number] [place] [address] Dec, [facility] [place] [facility] [address] [id number] [place] [address] Dec, [facility] [place] [facility] [address] [id number] [place] [address] Dec, [facility] [place] [facility] [address] [id number] [place] [address] Dec, [facility] [place] [facility] [address] [id number] [place] [address] Dec, [facility] [place] [facility] [address] [id number] [place] [address] Dec, [facility] [place] [facility] [address] [id number] [place] [address] Dec, [facility] [place] [facility] [address] [id number] [place] [address] Dec, [facility] [place] [facility] [address] [id number] [place] [address] Dec, [facility] [place] [facility] [address] [id number] [place] [address] Dec, 2013 [facility] [place] [facility] [address] [id number] [place] [address] Dec, [facility] [place] [facility] [address] [id number] [place] [address] Dec, [facility] [place] [facility] [address] [id number] [place] [address] Dec, [facility] [place] [facility] [address] [id number] [place] [address] Nov, [facility] [place] [facility] [address] [id number] [place] [address] Nov, [facility] [place] [facility] [address] [id number] [place] [address] Nov, [facility] [place] [facility] [address] [id number] [place] [address] Nov, [facility] [place] [facility] [address] [id number] [place] [address] Nov, [facility] [place] [facility] [address] [id number] [place] [address] Nov, [facility] [place] [facility] [address] [id number] [place] [address] Nov, [facility] [place] [facility] [address] [id number] [place] [address] Nov, [facility] [place] [facility] [address] [id number] [place] [address] Nov, [facility] [place] [facility] [address] [id number] [place] [address] Nov, [facility] [place] [facility] [address] [id number] [place] [address] Nov, [facility] [place] [facility] [address] [id number] [place] [address] Nov, [facility] [place] [facility] [address] [id number] [place] [address] Nov, [facility] [place] [facility] [address] [id number] [place] [address] Nov, [facility] [place] [facility] [address] [id number] [place] [address] Nov, [facility] [place] [facility] [address] [id number] [place] [address] Nov, [facility] [place] [facility] [address] [id number] [place] [address] Nov, [facility] [place] [facility] [address] [id number] [place] [address] Nov, [facility] [place] [facility] [address] [id number] [place] [address] Nov, [facility] [place] [facility] [address] [id number] [place] [address] Nov, [facility] [place] [facility] [address] [id number] [place] [address] October, [facility] [place] [facility] [address] [id number] [place] [address] October, [facility] [place] [facility] [address] [id number] [place] [address] October, [facility] [place] [facility] [address] [id number] [place] [address] October, [facility] [place] [facility] [address] [id number] [place] [address] Sep, [facility] [place] [facility] [address] [id number] [place] [address] Sep, [facility] [place] [facility] [address] [id number] [place] [address] Sep, [facility] [place] [facility] [address] [id number] [place] [address] 17 Sep, 2013 [facility] [address] [id number] [place] [address] 10 Sep, 2013 [facility] [place] [facility] [address] [id number] [place] [address] Sep, [facility] [place] [facility] [address] [id number] [place] [address] Sep, [facility] [place] [facility] [address] [id number] [place] [address] Sep, [facility] [place] [facility] [address] [id number] [place] [address] Sep, [facility] [place] [facility] [address] [id number] [place] [address] Aug, [facility] [place] [facility] [address] [id number] [place] [address] Aug, [facility] [place] [facility] [address] [id number] [place] [address] Aug, [facility] [place] [facility] [address] [id number] [place] [address] Aug, [facility] [place] [facility] [address] [id number] [place] [address] Aug, [facility] [place] [facility] [address] [id number] [place] [address] Aug, [facility] [place] [facility] [address] [id number] [place] [address] Aug, [facility] [place] [facility] [address] [id number] [place] [address] Aug, [facility] [place] [facility] [address] [id number] [place] [address] Jul, [facility] [place] [facility] [address] [id number] [place] [address] Jul, [facility] [place] [facility] [address] [id number] [place] [address] Jun, [facility] [place] [facility] [address] [id number] [place] [address] Jun, [facility] [place] [facility] [address] [id number] [place] [address] Jun, [facility] [place] [facility] [address] [id number] [place] [address] Jun, [facility] [place] [facility] [address] [id number] [place] [address] Jun, [facility] [place] [facility] [address] [id number] [place] [address] Jun, [facility] [place] [facility] [address] [id number] [place] [address] Jun, [facility] [place] [facility] [address] [id number] [place] [address] Jun, [facility] [place] [facility] [address] [id number] [place] [address] Jun, [facility] [place] [facility] [address] [id number] [place] [address] Jun, [facility] [place] [facility] [address] [id number], [place] [address] Jun, [facility] [place] [facility] [address] [id number], [place] [address] Jun, [facility] [place] [facility] [address] [id number] [place] [address] May, [facility] [place] [facility] [address] [id number] [place] [address] May, [facility] [place] [facility] [address] [id number] [place] [address] May, [facility] [place] [facility] [address] [id number] [place] [address] 31 May, 2013 [facility] [address] [id number] [place] [address] 31 May, 2013 [facility] [address] [id number] [place] [address] 31 May, 2013 [facility] [address] [id number] [place] [address] 26 May, 2013 [facility] [place] [facility] [address] [id number] [place] [address] May, [facility] [address] [id number] [place] [address] May, [facility] [address] [id number] [place] [address] 16 May, 2013 [facility] [address] [id number] [place] [address] 16 May, 2013 [facility] [address] [id number] [place] [address] May, [facility] [address] [id number] [place] [address] May, [facility] [address] [id number] [place] [address] Apr, [facility] [place] [facility] [address] [id number] [place] [address] Apr, [facility] [place] [facility] [address] [id number], [place] [address] Mar, [facility] [place] [facility] [address] [id number] [place] [address] Mar, [facility] [place] [facility] [address] [id number] [place] [address] 24 Feb, 2013 [facility] [place] [facility] [address] [id number], [place] [address] 23 Feb, 2013 [facility] [place] [facility] [address] [id number] [place] [address] Feb, [facility] [place] [facility] [address] [id number] [place] [address] Feb, [facility] [place] [facility] [address] [id number] [place] [address] Jan, [facility] [place] [facility] [address] [id number] [place] [address] Jan, [facility] [place] [facility] [address] [id number] [place] [address] Jan, [facility] [place] [facility] [address] [id number] [place] [address] Jan, [facility] [place] [facility] [address] [id number] [place] [address] Jan, [facility] [place] [facility] [address] [id number] [place] [address] Jan, [facility] [place] [facility] [address] [id number] [place] [address] Dec, [facility] [place] [facility] [address] [id number] [place] [address] Dec, [facility] [place] [facility] [address] [id number] [place] [address] Dec, [facility] [place] [facility] [address] [id number] [place] [address] Dec, [facility] [place] [facility] [address] [id number] [place] [address] Nov, [facility] [place] [facility] [address] [id number] [place] [address] October, [facility] [place] [facility] [address] [id number] [place] [address] October, [facility] [place] [facility] [address] [id number], [place] [address] October, [facility] [place] [facility] [address] [id number] [place] [address] Sep, [facility] [place] [facility] [address] [id number] [place] [address] Sep, [facility] [place] [facility] [address] [facility] [id number] [place] [address] Jun, [facility] [place] [facility] [address] [id number] [place] [address] Jun, [facility] [place] [facility] [address] [id number] [place] [address] Jun, [facility] [place] [facility] [address] [id number] [place] [address] Apr, [facility] [place] [facility] [address] [id number] [place] [address] Apr, [facility] [place] [facility] [address] [id number] [place] [address] Apr, [facility] [place] [facility] [address] [id number] [place] [address] Apr, [facility] [place] [facility] [address] [id number] [place] [address] Mar, [facility] [place] [facility] [address] [id number], [place] [address] Mar, [facility] [place] [facility] [address] [id number], [place] [address] Mar, [facility] [place] [facility] [address] [id number] [place] [address] Mar, [facility] [place] [facility] [address] [facility] [id number], [place] [address] Feb, [facility] [place] [facility] [address] [id number] [place] [address] Feb, [facility] [place] [facility] [address] [id number] [place] [address] Feb, [facility] [address] [id number] [place] [address] Jan, [facility] [address] [id number] [place] [address] Jan, [facility] [address] [id number] [place] [address] Jan, [facility] [address] [id number] [place] [address] Jan, [facility] [address] [id number] [place] [address] Dec, [facility] [address] [id number] [place] [address] Dec, [facility] [address] [id number] [place] [address] Nov, [facility] [address] [id number] [place] [address] Nov, [facility] [address] [id number] [place] [address] October, [facility] [address] [id number] [place] [address] October, [facility] [address] [id number] [place] [address] October, [facility] [address] [id number] [place] [address] Sep, [facility] [place] [facility] [address] [id number] [place] [address] Sep, [facility] [place] [facility] [address] [id number] [place] [address] Sep, [facility] [address] [id number] [place] [address] Aug, [facility] [address] [id number] [place] [address] 26 Aug, 2011 [facility] [place] [facility] [address] [id number] [place] [address] 15 Aug, 2011 [facility] [place] [facility] [address] [id number] [place] [address] 15 Aug, 2011 [facility] [place] [facility] [address] [id number] [place] [address] 07 Aug, 2011 [facility] [place] [facility] [address] [id number] [place] [address] 23 Jul, 2011 [facility] [place] [facility] [address] [id number] [place] [address] 16 Jul, 2011 [facility] [place] [facility] [address] [id number] [place] [address] 13 Jul, 2011 [facility] [place] [facility] [address] [id number] [place] [address] Jul, [facility] [place] [facility] [address] [id number] [place] [address] 07 Jul, 2011 [facility] [place] [facility] [address] [id number] [place] [address] 06 Jul, 2011 [facility] [place] [facility] [address] [id number] [place] [address] Jul, [facility] [place] [facility] [address] [id number] [place] [address] Jul, [facility] [place] [facility] [address] [id number] [place] [address] Jun, [facility] [place] [facility] [address] [id number] [place] [address] Jun, [facility] [place] [facility] [address] [id number] [place] [address] May, [facility] [place] [facility] [address] [id number] [place] [address] May, [facility] [address] [id number] [place] [address] May, [facility] [address] [id number] [place] [address] May, [facility] [address] [id number] [place] [address] Apr, [facility] [place] [facility] [address] [id number] [place] [address] Apr, [facility] [address] [id number] [place] [address] Apr, [facility] [address] [id number] [place] [address] Mar, [facility] [address] [id number] [place] [address] Mar, [facility] [address] [id number] [place] [address] Mar, [facility] [address] [id number] [place] [address] Mar, [facility] [address] [id number] [place] [address] Dec, [facility] [address] [id number] [place] [address] October, [facility] [address] [id number] [place] [address] May, [facility] [place] [facility] [address] [id number] [place] [address] May, [facility] [place] [facility] [address] [id number] [place] [address] May, [facility] [place] [facility] [address] [id number] [place] [address] May, [facility] [address] [id number] [address] Mar, [facility] [id number] [place] [address] Mar, [facility] [address] [id number] [address] May, [facility] [id number] [place] [address] May, [facility] [id number] [place] [address] May, [facility] [id number] [place] [address] May, [facility] [id number] [place] [address] Apr, [facility] [address] [id number] [address] Apr, [facility] [address] [id number] [address] October, IMMUNIZATIONS No Known Immunizations SOCIAL HISTORY [...]
--- OUTSIDE RECORDS SUMMARY | 2019-01-13 10:12 | XMS REPORT ---
Author Author RASHEED RAHMAN [facility] Address [address] [place] [address] Care Team Providers Care Identity Management Developer Name Role Phone RASHEED RAHMAN Unavailable PROBLEMS Type Condition ICD9-CM Code [id number] Code Onset Dates Condition Status SNOMED Code Problem MRSA (methicillin resistant staph aureus) culture positive Z22.322 Active 382893655 Problem History of illicit drug use Z87.898 Active 990869956 Problem Snoring R06.83 Active 39746417 Problem Dysthymic disorder F34.1 Active 67265460 Problem Impaired circulation I99.9 Active 43261368 Problem 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 Active 51306459 Problem Major depressive disorder, recurrent episode, moderate F33.1 Active 354511493 Problem Mild persistent asthma without complication J45.30 Active 192335635 Problem Fatigue R53.83 Active 01966915 Problem Other chronic pain G89.29 Active 85397176 Problem Upper respiratory tract infection, unspecified type J06.9 Active 24477519 Problem On home oxygen therapy Z99.81 Active 422764139478 Problem Mild chronic obstructive pulmonary disease J44.9 Active 061945132 Problem Neuropathy G62.9 Active 435002901 Problem Essential hypertension I10 Active 35330750 Problem COPD exacerbation J44.1 Active 306915949 Problem COPD (chronic obstructive pulmonary disease) with chronic bronchitis J44.9 Active 902124508 Problem Exertional asthma J45.990 Active 36781997 Problem Swallowing problem R13.10 Active 069341754 Problem Agoraphobia F40.00 Active 76697202 Problem Hypertension, benign I10 Active 55605206 Problem Panic disorder without agoraphobia F41.0 Active 07332361 Problem Varicose veins of both lower extremities I83.93 Active 63308335 Problem 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 451737906 Problem Arthritis M19.90 Active 5882259 Problem Mood disorder F39 Active 56626172 Problem Psychotic disorder F29 Active 97866067 ALLERGIES No Information ENCOUNTERS Encounter Location Date Diagnosis [facility] [id number] [place] [address] Feb, [facility] [id number] [place] [address] Dec, [facility] [id number] [place] [address] Dec, [facility] [id number] [place] [address] Dec, [facility] [id number] [place] [address] Nov, Major depressive disorder, recurrent episode, moderate F33.1 ; Panic disorder without agoraphobia F41.0 and Morbid obesity E66.01 [facility] [id number] [place] [address] Nov, Morbid obesity E66.01 [facility] [id number] [place] [address] Nov, Major depressive disorder, recurrent episode, moderate F33.1 and Panic disorder without agoraphobia F41.0 [facility] [id number] [place] [address] 18 Nov, 2018 Allergic reaction, initial encounter T78.40XA and Morbid obesity E66.01 [facility] [id number] [place] [address] 18 Nov, 2018 [facility] [id number] [place] [address] 13 Nov, 2018 Morbid obesity E66.01 ; Swallowing problem R13.10 and Hypertension, benign I10 [facility] [address] [place] [address] 07 Nov, 2018 Morbid obesity E66.01 ; COPD exacerbation J44.1 and Non-recurrent acute suppurative otitis media of left ear without spontaneous rupture of tympanic membrane H66.002 [facility] [address], [place] [address] Nov, Onychomycosis B35.1 ; Neuropathy G62.9 and Fissure in skin of foot R23.4 [facility] [address], [place] [address] October, Major depressive disorder, recurrent episode, moderate F33.1 ; Panic disorder without agoraphobia F41.0 and Morbid obesity E66.01 [facility] [address], [place] [address] October, Viral upper respiratory tract infection J06.9 [facility] [id number] [place] [address] October, [facility] [id number] [place] [address] October, Major depressive disorder, recurrent episode, moderate F33.1 and Panic disorder without agoraphobia F41.0 [facility] [address], [place] [address] October, [facility] [id number] [address] October, [facility] [address] [place] [address] October, [facility] [address], [place] [address] October, [facility] [address] [place] [address] October, [facility] [id number] [address] October, [facility] [address], [place] [address] October, Major depressive disorder, recurrent episode, moderate F33.1 and Panic disorder without agoraphobia F41.0 [facility] [address], [place] [address] Sep, Morbid obesity E66.01 and Lumbar neuritis M54.16 [facility] [id number] [place] [address] Sep, Panic disorder without agoraphobia F41.0 and Major depressive disorder, recurrent episode, moderate F33.1 [facility] [id number] [place] [address] Sep, Gastroenteritis K52.9 ; Low back pain M54.5 ; Other chronic pain G89.29 and Morbid obesity E66.01 [facility] [id number] [place] [address] Sep, Major depressive disorder, recurrent episode, moderate F33.1 ; Panic disorder without agoraphobia F41.0 and 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 [facility] [id number] [place] [address] Sep, Panic disorder without agoraphobia F41.0 [facility] [id number] [place] [address] Sep, Panic disorder without agoraphobia F41.0 [facility] [id number] [place] [address] Aug, Panic disorder without agoraphobia F41.0 ; Major depressive disorder, recurrent episode, moderate F33.1 ; 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 ; Psychotic disorder F29 ; Tardive dyskinesia G24.01 and Morbid obesity E66.01 [facility] [id number] [place] [address] Aug, Dysthymic disorder F34.1 and Psychotic disorder F29 [facility] [id number] [place] [address] Aug, Encounter for Medicare annual wellness exam Z00.00 ; Morbid obesity E66.01 and 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 [facility] [id number] [place] [address] Aug, Dysthymic disorder F34.1 and Psychotic disorder F29 [facility] [id number] [place] [address] Aug, Neuropathy G62.9 ; Onychomycosis B35.1 and Xerosis of skin L85.3 [facility] [address] [address] Jul, [facility] [address] [address] Jul, Mood disorder F39 ; Wheezing R06.2 ; Choking, initial encounter T17.308A and Coughing R05 [facility] [address] [address] Jul, Low back pain M54.5 [facility] [address] [address] Jun, Flu-like symptoms R68.89 ; BMI 45.0-49.9, adult Z68.42 ; COPD exacerbation J44.1 and Acute bronchitis J20.9 [facility] [id number] [place] [address] Jun, [facility] [id number] [place] [address] May, [facility] [id number] [place] [address] May, Onychomycosis B35.1 and 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 [facility] [id number] [place] [address] May, Low back pain M54.5 and Edema leg R60.0 [facility] [place] [address] [place] [address] May, BMI 45.0-49.9, adult Z68.42 ; Well woman exam with routine gynecological exam Z01.419 and Breast cancer screening Z12.31 [facility] [place] [address] [address] 19 Apr, 2018 Arthritis M19.90 [facility] [address] [address] 16 Apr, 2018 Arthritis M19.90 and Otalgia of both ears H92.03 [facility] [address] [address] 28 Feb, 2018 [facility] [place] [address] [address] 28 Feb, 2018 Low back pain M54.5 ; Other chronic pain G89.29 ; Exertional asthma J45.990 and Encounter for immunization Z23 [facility] [address] [address] 21 Feb, 2018 Skin fissures R23.4 ; Neuropathy G62.9 and Onychomycosis B35.1 [facility] [address] [address] 05 Feb, 2018 Dysthymic disorder F34.1 [facility] [address] [address] Feb, [facility] [address] [address] Jan, [facility] [address] [address] Jan, Abrasion of right elbow, initial encounter S50.311A ; Abrasion, right knee, initial encounter S80.211A and Sprain of other ligament of right ankle, initial encounter S93.491A [facility] [address] [address] Jan, [facility] [id number] [place] [address] Jan, Injury of left ankle, initial encounter S99.912A ; Fall down stairs, initial encounter W10.8XXA and BMI 45.0-49.9, adult Z68.42 [facility] [place] [address] [address] Jan, COPD exacerbation J44.1 [facility] [address] [address] Jan, Dysfunction of both eustachian 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 [facility] [address] [address] Jan, Bronchitis J40 and Acute suppurative otitis media of left ear without spontaneous rupture of tympanic membrane, recurrence not specified H66.002 [facility] [address] [address] Jan, [facility] [address] [address] Jan, Bronchitis J40 and BMI 40.0-44.9, adult Z68.41 [facility] [address] [address] Jan, [facility] [address] [address] Dec, Gastric pain R10.9 [facility] [address] [address] Dec, [facility] [address] [address] Dec, History of illicit drug use Z87.898 ; Neuropathy G62.9 ; COPD (chronic obstructive pulmonary disease) with chronic bronchitis J44.9 and Acute pain of right knee M25.561 [facility] [address] [address] Nov, [facility] [id number] [place] [address] 15 Nov, 2017 Onychomycosis B35.1 and Contusion of left foot, subsequent encounter S90.32XD [facility] [place] [address] [address] 13 Nov, 2017 COPD exacerbation J44.[address] [address] Sep, [address] [address] Sep, Dysthymic disorder F34.1 ; Tobacco abuse Z72.0 ; Pain in right knee M25.561 ; Pain in left knee M25.562 ; Other chronic pain G89.29 and BMI 40.0- 44.9, adult Z68.[address] [address] Aug, Major depressive disorder, recurrent episode, moderate F33.1 and 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 [address] Aug, Dysthymic disorder F34.1 ; Non-pressure chronic ulcer of left thigh, unspecified ulcer stage L97.129 ; Tobacco abuse Z72.0 ; Mild chronic obstructive pulmonary disease J44.9 and Forgetfulness R68.89 [id number] [place] [address] Aug, Onychomycosis B35.1 ; Fissure in skin of foot R23.4 and Foot callus L84 [facility] [address] [address] Jul, Right medial knee pain M25.561 ; Upper respiratory tract infection, unspecified type J06.9 and BMI 40.0-44.9, adult Z68.41 [facility] [address] [address] Jul, Nausea and vomiting, intractability of vomiting not specified, unspecified vomiting type R11.2 ; Left ear pain H92.02 and Gastric pain R10.9 [facility] [id number] [place] [address] Apr, Encounter for immunization Z23 [facility] [id number] [place] [address] Apr, Onychomycosis B35.1 ; Xerosis of skin L85.3 ; Neuropathy G62.9 and 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 [facility] [address] [address] Jan, Onychomycosis B35.1 and Neuropathy G62.9 [facility] [id number] [place] [address] Dec, [facility] [address] [address] Dec, [facility] [id number] [place] [address] Nov, [facility] [id number] [place] [address] Aug, [facility] [id number] [place] [address] Aug, [facility] [id number] [place] [address] Jul, [facility] [id number] [place] [address] Jul, [facility] [id number] [place] [address] Jul, Decubitus ulcer of left thigh, stage 2 L89.892 [facility] [id number] [place] [address] Jul, Decubitus ulcer of left thigh, stage 2 L89.892 [facility] [address], [place] [address] 17 Jul, 2016 [facility] [id number] [place] [address] 15 Jul, 2016 Decubitus ulcer of left thigh, stage 2 L89.892 [facility] [address] [place] [address] 14 Jul, 2016 [facility] [address] [place] [address] 13 Jul, 2016 Cellulitis of other specified site L03.818 ; Illicit drug use F19.90 and Decubitus ulcer of left thigh, stage 2 L89.892 [facility] [address] [place] [address] 08 Jul, 2016 [facility] [id number] [place] [address] 06 Jul, 2016 Cellulitis of right breast N61.0 [facility] [address] [place] [address] Jun, [facility] [address] [place] [address] Jun, [facility] [address] [place] [address] Jun, Wheezing R06.2 and Arthralgia, unspecified joint M25.50 [facility] [address], [place] [address] May, [facility] [id number] [place] [address] May, [facility] [address] [place] [address] May, [facility] [id number] [place] [address] 05 May, 2016 Shortness of breath R06.02 [facility] [id number] [place] [address] 02 May, 2016 Onychomycosis B35.1 and Fissure in skin of foot R23.4 [facility] [id number] [place] [address] 28 Apr, 2016 [facility] [address] [address] 18 Apr, 2016 Dizziness R42 [facility] [address] [address] 14 Apr, 2016 Shortness of breath R06.02 ; Essential hypertension I10 ; Dizziness R42 and On home oxygen therapy Z99.81 [facility] [id number] [place] [address] Apr, [facility] [id number] [place] [address] 08 Apr, 2016 [facility] [id number] [place] [address] Apr, [facility] [id number] [place] [address] Apr, [facility] [id number] [place] [address] Apr, [facility] [id number] [place] [address] Apr, [facility] [id number] [place] [address] Apr, [facility] [id number] [place] [address] Mar, Mild chronic obstructive pulmonary disease J44.9 [facility] [id number] [place] [address] Mar, [facility] [address] [place] [address] Mar, Epigastric pain R10.13 ; Low back pain M54.5 ; Other chronic pain G89.29 and Breast cancer screening Z12.39 [facility] [id number] [place] [address] Mar, [place] [address] [address] Mar, [facility] [id number] [place] [address] Feb, [facility] [id number] [place] [address] Feb, [facility] [id number] [place] [address] Feb, Fissure in skin of foot R23.4 and Onychomycosis B35.1 [facility] [id number] [place] [address] Jan, Agoraphobia F40.00 [facility] [id number] [place] [address] Dec, Agoraphobia F40.00 [facility] [id number] [place] [address] Dec, Mild persistent asthma without complication J45.30 ; Dysthymic disorder F34.1 and Upper respiratory tract infection, unspecified type J06.9 [place] [address] [place] [address] Nov, Agoraphobia F40.00 [facility] [id number] [place] [address] October, Agoraphobia F40.00 [facility] [id number] [place] [address] Sep, Panic disorder without agoraphobia F41.0 ; Agoraphobia F40.00 and Dysthymic disorder F34.1 [place] [address] [address] Sep, Panic attacks F41.0 [place] [address] [address] Sep, [place] [address] [address] Sep, Panic disorder without agoraphobia F41.0 ; Varicose veins of both lower extremities I83.93 and Fatigue R53.83 [place] [address] [address] Sep, Fatigue R53.83 [place] [address] [address] Sep, [place] [address] [address] Aug, [place] [address] [address] Aug, [place] [address] [address] Aug, 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 [place] [address] [address] Aug, Panic disorder without agoraphobia F41.0 ; Agoraphobia F40.00 and Dysthymic disorder F34.1 [facility] [id number] [place] [address] Aug, Shortness of breath R06.02 ; Panic attacks F41.0 ; COPD (chronic obstructive pulmonary disease) J44.9 ; Tobacco abuse Z72.0 ; Family history of diabetes mellitus Z83.3 and Weight gain R63.5 [place] [address] [address] Aug, [facility] [id number] [place] [address] Jul, [facility] [id number] [place] [address] Jun, Onychomycosis B35.1 ; Neuropathy G62.9 and Impaired circulation I99.9 [place] [address] [address] Mar, Fissure in skin of foot R23.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 [facility] [place] [id number] [place] [address] 18 Feb, 2015 Family history of coronary arteriosclerosis V17.3 [place] [address] [address] 15 Feb, 2015 Allergic rhinitis due to pollen 477.0 ; Unspecified breast screening V76.10 ; Anxiety 300.00 and Family history of coronary arteriosclerosis V17.3 [facility] [id number] [place] [address] Jan, [place] [place] [id number] [place] [address] Dec, [place] [id number] [place] [address] Dec, Onychomycosis 110.1 and Skin fissures 709.8 [place] [id number] [place] [address] Sep, [place] [address] [address] Sep, [facility] [id number] [place] [address] Aug, [facility] [address] [address] Aug, [facility] [address] [id number] [place] [address] Jul, [facility] [place] [facility] [address] [id number] [place] [address] Jul, [facility] [place] [facility] [address] [id number] [place] [address] Jun, [facility] [place] [facility] [address] [id number] [place] [address] Jun, [facility] [place] [facility] [address] [id number] [place] [address] Jun, [facility] [place] [facility] [address] [id number] [place] [address] Jun, [facility] [place] [facility] [address] [id number] [place] [address] Jun, [facility] [place] [facility] [address] [id number] [place] [address] May, [facility] [place] [facility] [address] [id number] [place] [address] May, [facility] [place] [facility] [address] [id number] [place] [address] May, [facility] [place] [facility] [address] [id number] [place] [address] May, [facility] [place] [facility] [address] [id number] [place] [address] May, [facility] [place] [facility] [address] [id number] [place] [address] May, [facility] [place] [facility] [address] [id number] [place] [address] May, [facility] [place] [facility] [address] [id number] [place] [address] May, [facility] [place] [facility] [address] [id number] [place] [address] Apr, [facility] [place] [facility] [address] [id number] [place] [address] Apr, [facility] [place] [facility] [address] [id number] [place] [address] Apr, [facility] [place] [facility] [address] [id number] [place] [address] Apr, [facility] [place] [facility] [address] [id number] [place] [address] Apr, [facility] [place] [facility] [address] [id number] [place] [address] Apr, [facility] [place] [facility] [address] [id number] [place] [address] Apr, [facility] [place] [facility] [address] [id number] [place] [address] Apr, [facility] [place] [facility] [address] [id number] [place] [address] Apr, [facility] [place] [facility] [address] [id number] [place] [address] Apr, [facility] [place] [facility] [address] [facility] [id number] [place] [address] Mar, [facility] [place] [facility] [address] [address] [id number] [place] [address] Mar, [facility] [place] [facility] [address] [id number], [place] [address] Mar, [facility] [place] [facility] [address] [id number] [place] [address] Mar, [facility] [place] [facility] [address] [id number] [place] [address] Mar, [facility] [place] [facility] [address] [id number] [place] [address] Mar, [facility] [place] [facility] [address] [id number] [place] [address] Mar, [facility] [place] [facility] [address] [id number] [place] [address] Mar, [facility] [place] [facility] [address] [id number] [place] [address] Mar, [facility] [place] [facility] [address] [id number] [place] [address] Mar, [facility] [place] [facility] [address] [id number] [place] [address] Mar, [facility] [place] [facility] [address] [id number] [place] [address] Mar, [facility] [place] [facility] [address] [id number] [place] [address] Mar, [facility] [place] [facility] [address] [id number] [place] [address] Mar, [facility] [place] [facility] [address] [id number] [place] [address] Mar, [facility] [place] [facility] [address] [id number] [place] [address] Mar, [facility] [place] [facility] [address] [id number] [place] [address] 20 Mar, 2014 [facility] [place] [facility] [address] [id number], [place] [address] 16 Mar, 2014 [facility] [place] [facility] [address] [id number] [place] [address] 16 Mar, 2014 [facility] [place] [facility] [address] [id number] [place] [address] 15 Mar, 2014 [facility] [place] [facility] [address] [id number] [place] [address] 14 Mar, 2014 [facility] [place] [facility] [address] [id number] [place] [address] 14 Mar, 2013 [facility] [place] [facility] [address] [id number] [place] [address] 14 Mar, 2013 [facility] [place] [facility] [address] [id number] [place] [address] 14 Mar, 2013 [facility] [place] [facility] [address] [id number] [place] [address] 09 Mar, 2013 [facility] [place] [facility] [address] [id number] [place] [address] 09 Mar, 2013 [facility] [place] [facility] [address] [id number] [place] [address] 09 Mar, 2013 [facility] [place] [facility] [address] [id number] [place] [address] 09 Mar, 2013 [facility] [place] [facility] [address] [id number], [place] [address] 30 Sep, 2013 [facility] [place] [facility] [address] [id number] [place] [address] 30 Sep, 2013 [facility] [place] [facility] [address] [id number] [place] [address] 30 Sep, 2013 [facility] [place] [facility] [address] [id number] [place] [address] 30 Sep, 2013 [facility] [place] [facility] [address] [id number] [place] [address] 26 Sep, 2013 [facility] [place] [facility] [address] [id number], [place] [address] 26 Sep, 2013 [facility] [place] [facility] [address] [id number] [place] [address] 09 Sep, 2013 [facility] [place] [facility] [address] [id number], [place] [address] 09 Sep, 2013 [facility] [place] [facility] [address] [id number], [place] [address] 03 Sep, 2013 [facility] [place] [facility] [address] [id number] [place] [address] Feb, 2013 [facility] [place] [facility] [address] [id number] [place] [address] Feb, [facility] [place] [facility] [address] [id number] [place] [address] Feb, [facility] [place] [facility] [address] [id number] [place] [address] Jan, [facility] [place] [facility] [address] [id number] [place] [address] Jan, [facility] [place] [facility] [address] [id number] [place] [address] Jan, [facility] [place] [facility] [address] [id number] [place] [address] Jan, [facility] [place] [facility] [address] [id number] [place] [address] Jan, [facility] [place] [facility] [address] [id number] [place] [address] Jan, [facility] [place] [facility] [address] [id number] [place] [address] Jan, [facility] [place] [facility] [address] [id number] [place] [address] Jan, [facility] [place] [facility] [address] [id number] [place] [address] Jan, [facility] [place] [facility] [address] [id number] [place] [address] Jan, [facility] [place] [facility] [address] [id number] [place] [address] Jan, [facility] [place] [facility] [address] [id number] [place] [address] Jan, [facility] [place] [facility] [address] [id number] [place] [address] Jan, [facility] [place] [facility] [address] [id number] [place] [address] Dec, [facility] [place] [facility] [address] [id number] [place] [address] Dec, [facility] [place] [facility] [address] [id number] [place] [address] Dec, [facility] [place] [facility] [address] [id number] [place] [address] Dec, [facility] [place] [facility] [address] [id number] [place] [address] Dec, [facility] [place] [facility] [address] [id number] [place] [address] Dec, [facility] [place] [facility] [address] [id number] [place] [address] Dec, [facility] [place] [facility] [address] [id number] [place] [address] Dec, [facility] [place] [facility] [address] [id number] [place] [address] Dec, [facility] [place] [facility] [address] [id number] [place] [address] Dec, [facility] [place] [facility] [address] [id number] [place] [address] Dec, [facility] [place] [facility] [address] [id number] [place] [address] Dec, [facility] [place] [facility] [address] [id number] [place] [address] Dec, [facility] [place] [facility] [address] [id number] [place] [address] Dec, [facility] [place] [facility] [address] [id number] [place] [address] Dec, [facility] [place] [facility] [address] [id number] [place] [address] Dec, [facility] [place] [facility] [address] [id number] [place] [address] Dec, [facility] [place] [facility] [address] [id number] [place] [address] Dec, [facility] [place] [facility] [address] [id number] [place] [address] Nov, [facility] [place] [facility] [address] [id number] [place] [address] Nov, [facility] [place] [facility] [address] [id number] [place] [address] Nov, [facility] [place] [facility] [address] [id number] [place] [address] Nov, [facility] [place] [facility] [address] [id number] [place] [address] Nov, [facility] [place] [facility] [address] [id number] [place] [address] Nov, [facility] [place] [facility] [address] [id number] [place] [address] Nov, [facility] [place] [facility] [address] [id number] [place] [address] Nov, [facility] [place] [facility] [address] [id number] [place] [address] Nov, [facility] [place] [facility] [address] [id number] [place] [address] Nov, [facility] [place] [facility] [address] [id number] [place] [address] Nov, [facility] [place] [facility] [address] [id number] [place] [address] Nov, [facility] [place] [facility] [address] [id number] [place] [address] Nov, [facility] [place] [facility] [address] [id number] [place] [address] Nov, [facility] [place] [facility] [address] [id number] [place] [address] Nov, [facility] [place] [facility] [address] [id number] [place] [address] Nov, [facility] [place] [facility] [address] [id number] [place] [address] Nov, [facility] [place] [facility] [address] [id number] [place] [address] Nov, [facility] [place] [facility] [address] [id number] [place] [address] Nov, [facility] [place] [facility] [address] [id number] [place] [address] Nov, [facility] [place] [facility] [address] [id number] [place] [address] October, [facility] [place] [facility] [address] [id number] [place] [address] October, [facility] [place] [facility] [address] [id number] [place] [address] October, [facility] [place] [facility] [address] [id number] [place] [address] October, [facility] [place] [facility] [address] [id number] [place] [address] Sep, [facility] [place] [facility] [address] [id number] [place] [address] Sep, [facility] [place] [facility] [address] [id number] [place] [address] Sep, [facility] [place] [facility] [address] [id number] [place] [address] Sep, [facility] [place] [facility] [address] [id number] [place] [address] Sep, [facility] [place] [facility] [address] [id number] [place] [address] Sep, [facility] [place] [facility] [address] [id number] [place] [address] Sep, [facility] [place] [facility] [address] [id number] [place] [address] Sep, [facility] [place] [facility] [address] [id number] [place] [address] Sep, [facility] [place] [facility] [address] [id number] [place] [address] Aug, [facility] [place] [facility] [address] [id number] [place] [address] Aug, [facility] [place] [facility] [address] [id number] [place] [address] Aug, [facility] [place] [facility] [address] [id number] [place] [address] Aug, [facility] [place] [facility] [address] [id number] [place] [address] Aug, [facility] [place] [facility] [address] [id number] [place] [address] Aug, [facility] [place] [facility] [address] [id number] [place] [address] Aug, [facility] [place] [facility] [address] [id number] [place] [address] Aug, [facility] [place] [facility] [address] [id number] [place] [address] Jul, [facility] [place] [facility] [address] [id number] [place] [address] Jul, [facility] [place] [facility] [address] [id number] [place] [address] Jun, [facility] [place] [facility] [address] [id number] [place] [address] 30 Jun, 2013 [facility] [place] [facility] [address] [id number] [place] [address] Jun, [facility] [place] [facility] [address] [id number] [place] [address] Jun, [facility] [place] [facility] [address] [id number] [place] [address] Jun, [facility] [place] [facility] [address] [id number] [place] [address] Jun, [facility] [place] [facility] [address] [id number] [place] [address] Jun, [facility] [place] [facility] [address] [id number] [place] [address] Jun, [facility] [place] [facility] [address] [id number] [place] [address] Jun, [facility] [place] [facility] [address] [id number] [place] [address] Jun, [facility] [place] [facility] [address] [id number] [place] [address] Jun, [facility] [place] [facility] [address] [id number] [place] [address] Jun, [facility] [place] [facility] [address] [id number] [place] [address] May, [facility] [place] [facility] [address] [id number] [place] [address] May, [facility] [place] [facility] [address] [id number] [place] [address] May, [facility] [place] [facility] [address] [id number] [place] [address] May, [facility] [place] [facility] [address] [id number] [place] [address] May, [facility] [place] [facility] [address] [id number] [place] [address] May, [facility] [place] [facility] [address] [id number] [place] [address] May, [facility] [place] [facility] [address] [id number] [place] [address] May, [facility] [place] [facility] [address] [id number] [place] [address] May, [facility] [place] [facility] [address] [id number] [place] [address] May, [facility] [place] [facility] [address] [id number] [place] [address] May, [facility] [place] [facility] [address] [id number] [place] [address] May, [facility] [place] [facility] [address] [id number] [place] [address] May, [facility] [place] [facility] [address] [id number] [place] [address] Apr, [facility] [place] [facility] [address] [id number] [place] [address] Apr, [facility] [place] [facility] [address] [id number], [place] [address] Mar, [facility] [place] [facility] [address] [id number], [place] [address] Mar, [facility] [place] [facility] [address] [id number] [place] [address] 24 Feb, 2013 [facility] [place] [facility] [address] [id number], [place] [address] Feb, [facility] [place] [facility] [address] [id number] [place] [address] Feb, [facility] [place] [facility] [address] [id number] [place] [address] Feb, [facility] [address] [id number] [place] [address] Jan, [facility] [place] [facility] [address] [id number] [place] [address] Jan, [facility] [address] [id number] [place] [address] Jan, [facility] [place] [facility] [address] [id number] [place] [address] Jan, [facility] [place] [facility] [address] [id number] [place] [address] Jan, [facility] [place] [facility] [address] [id number] [place] [address] Jan, [facility] [address] [id number] [place] [address] Dec, [facility] [address] [id number] [place] [address] Dec, [facility] [address] [id number] [place] [address] Dec, [facility] [address] [id number] [place] [address] Dec, [facility] [address] [id number] [place] [address] Nov, [facility] [place] [facility] [address] [id number] [place] [address] October, [facility] [place] [facility] [address] [id number] [place] [address] October, [facility] [place] [facility] [address] [id number] [place] [address] October, [facility] [place] [facility] [address] [id number] [place] [address] Sep, [facility] [place] [facility] [address] [id number] [place] [address] Sep, [facility] [place] [facility] [address] [id number] [place] [address] Jun, [facility] [place] [facility] [address] [id number] [place] [address] Jun, [facility] [place] [facility] [address] [id number] [place] [address], [place] [address] Jun, [facility] [place] [facility] [address] [id number] [place] [address] Apr, [facility] [place] [facility] [address] [id number] [place] [address] Apr, [facility] [place] [facility] [address] [id number] [place] [address] Apr, [facility] [place] [facility] [address] [id number] [place] [address] Apr, [facility] [place] [facility] [address] [id number] [place] [address] Mar, [facility] [place] [facility] [address] [id number] [place] [address] Mar, [facility] [place] [facility] [address] [id number] [place] [address] Mar, [facility] [place] [facility] [address] [id number] [place] [address] Mar, [facility] [place] [facility] [address] [id number] [place] [address] 29 Feb, 2012 [facility] [place] [facility] [address] [id number] [place] [address] 27 Feb, 2012 [facility] [place] [facility] [address] [id number] [place] [address] 20 Feb, 2012 [facility] [place] [facility] [address] [id number] [place] [address] Jan, [facility] [place] [facility] [address] [id number] [place] [address] Jan, [facility] [place] [facility] [address] [id number] [place] [address] Jan, [facility] [place] [facility] [address] [id number] [place] [address] Jan, [facility] [place] [facility] [address] [id number] [place] [address] Dec, [facility] [place] [facility] [address] [id number] [place] [address] Dec, [facility] [place] [facility] [address] [id number] [place] [address] Nov, [facility] [place] [facility] [address] [id number] [place] [address] Nov, [facility] [place] [facility] [address] [id number] [place] [address] October, [facility] [place] [facility] [address] [id number] [place] [address] October, [facility] [place] [facility] [address] [id number] [place] [address] October, [facility] [place] [facility] [address] [id number] [place] [address] Sep, [facility] [place] [facility] [address] [id number] [place] [address] Sep, [facility] [place] [facility] [address] [id number] [place] [address] Sep, [facility] [place] [facility] [address] [id number] [place] [address] Aug, [facility] [place] [facility] [address] [id number] [place] [address] Aug, [facility] [place] [facility] [address] [id number] [place] [address] 15 Aug, 2011 [facility] [address] [id number] [place] [address] 15 Aug, 2011 [facility] [place] [facility] [address] [id number] [place] [address] 07 Aug, 2011 [facility] [address] [id number] [place] [address] 23 Jul, 2011 [facility] [place] [facility] [address] [id number] [place] [address] 16 Jul, 2011 [facility] [address] [id number] [place] [address] 13 Jul, 2011 [facility] [address] [id number] [place] [address] 09 Jul, 2011 [facility] [place] [facility] [address] [id number] [place] [address] Jul, [facility] [address] [id number] [place] [address] Jul, [facility] [place] [facility] [address] [id number] [place] [address] Jul, [facility] [place] [facility] [address] [id number] [place] [address] Jul, [facility] [place] [facility] [address] [id number] [place] [address] Jun, [facility] [place] [facility] [address] [id number] [place] [address] Jun, [facility] [place] [facility] [address] [id number] [place] [address] May, [facility] [place] [facility] [address] [id number] [place] [address] May, [facility] [place] [facility] [address] [id number] [place] [address] 08 May, 2011 [facility] [place] [facility] [address] [id number] [place] [address] 08 May, 2011 [facility] [place] [facility] [address] [id number] [place] [address] Apr, [facility] [place] [facility] [address] [id number] [place] [address] Apr, [facility] [place] [facility] [address] [id number] [place] [address] Apr, [facility] [place] [facility] [address] [id number] [place] [address] Mar, [facility] [place] [facility] [address] [id number] [place] [address] Mar, [facility] [place] [facility] [address] [id number] [place] [address] Mar, [facility] [place] [facility] [address] [id number] [place] [address] Mar, [facility] [place] [facility] [address] [id number] [place] [address] Dec, [facility] [place] [facility] [address] [id number] [place] [address] October, [facility] [place] [facility] [address] [id number], [place] [address] May, [facility] [place] [facility] [address] [id number] [place] [address] May, [facility] [place] [facility] [address] [id number] [place] [address] May, [facility] [place] [facility] [address] [id number] [place] [address] 06 May, 2010 [facility] [place] [facility] [address] [id number] [place] [address] Mar, [facility] [place] [facility] [address] [id number], [place] [address] Mar, [facility] [address] [id number], [place] [address] May, [facility] [address] [id number], [place] [address] May, [facility] [address] [id number], [place] [address] May, [facility] [address] [id number], [place] [address] May, [facility] [id number], [place] [address] Apr, [facility] [address] [id number], [place] [address] Apr, [facility] [address] [id number], [place] [address] October, IMMUNIZATIONS No Known Immunizations SOCIAL HISTORY Never Assessed REASON FOR VISIT PLAN OF CARE VITAL SIGNS Height 64 in 2014-07-06 Weight 232 lbs 2014-07-06 Temperature 98.8 degrees Fahrenheit 2014-07-06 Heart Rate 80 bpm 2014-07-06 Respiratory Rate 24 2014-07-06 Blood pressure systolic 108 mmHg 2014-07-06 Blood pressure diastolic 68 mmHg 2014-07-06 MEDICATIONS Unknown Medications RESULTS No Results PROCEDURES Procedure Date Ordered Result Body Site VISIT Jul 06, 2014 INSTRUCTIONS MEDICATIONS ADMINISTERED No Known Medications MEDICAL [...]
--- OUTSIDE RECORDS SUMMARY | 2019-01-13 10:13 | XMS REPORT ---
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 Name Role Phone LEIDY REY Unavailable PROBLEMS Type Condition ICD9-CM Code BJE50-CO Code Onset Dates Condition Status SNOMED Code Problem MRSA (methicillin resistant staph aureus) culture positive Z22.322 Active 389409887 Problem History of illicit drug use Z87.898 Active 496245484 Problem Snoring R06.83 Active 75880989 Problem Dysthymic disorder F34.1 Active 81796340 Problem Impaired circulation I99.9 Active 45469792 Problem 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 Active 73695547 Problem Major depressive disorder, recurrent episode, moderate F33.1 Active 791289597 Problem Mild persistent asthma without complication J45.30 Active 502959853 Problem Fatigue R53.83 Active 32117330 Problem Other chronic pain G89.29 Active 61565022 Problem Upper respiratory tract infection, unspecified type J06.9 Active 09581756 Problem On home oxygen therapy Z99.81 Active 039423186674 Problem Mild chronic obstructive pulmonary disease J44.9 Active 458806763 Problem Neuropathy G62.9 Active 597302859 Problem Essential hypertension I10 Active 67511491 Problem COPD exacerbation J44.1 Active 746701294 Problem COPD (chronic obstructive pulmonary disease) with chronic bronchitis J44.9 Active 943176667 Problem Exertional asthma J45.990 Active 07630256 Problem Swallowing problem R13.10 Active 381705356 Problem Agoraphobia F40.00 Active 00986270 Problem Hypertension, benign I10 Active 88239758 Problem Panic disorder without agoraphobia F41.0 Active 42152994 Problem Varicose veins of both lower extremities I83.93 Active 09622071 Problem 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 253422454 Problem Arthritis M19.90 Active 1641867 Problem Mood disorder F39 Active 13411142 Problem Psychotic disorder F29 Active 67765372 ALLERGIES No Information ENCOUNTERS Encounter Location Date Diagnosis [facility] [address] [address] Feb, [facility] [address] [id number] [place] [address] Dec, [facility] [address] [address] Dec, [facility] [address] [address] Nov, [place] [address] [address] Nov, Morbid obesity E66.01 [facility] [address] [address] 19 Nov, 2018 Major depressive disorder, recurrent episode, moderate F33.1 and Panic disorder without agoraphobia F41.0 [facility] [id number] [place] [address] 18 Nov, 2018 Allergic reaction, initial encounter T78.40XA and Morbid obesity E66.01 [facility] [id number] [place] [address] 18 Nov, 2018 [facility] [id number] [place] [address] 13 Nov, 2018 Morbid obesity E66.01 ; Swallowing problem R13.10 and Hypertension, benign I10 [facility] [id number] [place] [address] 07 Nov, 2018 Morbid obesity E66.01 ; COPD exacerbation J44.1 and Non-recurrent acute suppurative otitis media of left ear without spontaneous rupture of tympanic membrane H66.002 [facility] [id number] [place] [address] 07 Nov, 2018 Onychomycosis B35.1 ; Neuropathy G62.9 and Fissure in skin of foot R23.4 [facility] [address] [address] October, Major depressive disorder, recurrent episode, moderate F33.1 ; Panic disorder without agoraphobia F41.0 and Morbid obesity E66.01 [facility] [address] [address] October, Viral upper respiratory tract infection J06.9 [facility] [id number] [place] [address] October, [facility] [id number] [place] [address] October, Major depressive disorder, recurrent episode, moderate F33.1 and Panic disorder without agoraphobia F41.0 [facility] [address] [address] October, [facility] [id number] [place] [address] October, [facility] [id number] [place] [address] October, [facility] [id number] [place] [address] October, [facility] [address] [address] October, [facility] [id number] [place] [address] October, [facility] [address] [address] October, Major depressive disorder, recurrent episode, moderate F33.1 and Panic disorder without agoraphobia F41.0 [facility] [address] [address] Sep, Morbid obesity E66.01 and Lumbar neuritis M54.16 [facility] [address] [place] [address] Sep, Panic disorder without agoraphobia F41.0 and Major depressive disorder, recurrent episode, moderate F33.1 [facility] [id number] [place] [address] Sep, Gastroenteritis K52.9 ; Low back pain M54.5 ; Other chronic pain G89.29 and Morbid obesity E66.01 [facility] [id number] [place] [address] Sep, Major depressive disorder, recurrent episode, moderate F33.1 ; Panic disorder without agoraphobia F41.0 and 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 [place] [id number] [place] [address] Sep, Panic disorder without agoraphobia F41.0 [facility] [id number] [place] [address] Sep, Panic disorder without agoraphobia F41.0 [facility] [id number] [place] [address] Aug, Panic disorder without agoraphobia F41.0 ; Major depressive disorder, recurrent episode, moderate F33.1 ; 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 ; Psychotic disorder F29 ; Tardive dyskinesia G24.01 and Morbid obesity E66.01 [facility] [id number] [place] [address] Aug, Dysthymic disorder F34.1 and Psychotic disorder F29 [facility] [id number] [place] [address] Aug, Encounter for Medicare annual wellness exam Z00.00 ; Morbid obesity E66.01 and 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 [facility] [id number] [place] [address] Aug, Dysthymic disorder F34.1 and Psychotic disorder F29 [place] [id number] [place] [address] Aug, Neuropathy G62.9 ; Onychomycosis B35.1 and Xerosis of skin L85.3 [place] [address] [address] Jul, [place] [address] [address] Jul, Mood disorder F39 ; Wheezing R06.2 ; Choking, initial encounter T17.308A and Coughing R05 [place] [address] [address] Jul, Low back pain M54.5 [facility] [address] [address] Jun, Flu-like symptoms R68.89 ; BMI 45.0-49.9, adult Z68.42 ; COPD exacerbation J44.1 and Acute bronchitis J20.9 [place] [address] [address] Jun, [place] [address] [address] May, [place] [address] [address] May, Onychomycosis B35.1 and 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 [place] [id number] [place] [address] May, Low back pain M54.5 and Edema leg R60.[address] [address] May, BMI 45.0-49.9, adult Z68.42 ; Well woman exam with routine gynecological exam Z01.419 and Breast cancer screening Z12.31 [place] [address] [place] [address] Apr, Arthritis M19.90 [place] [address] [address] 16 Apr, 2018 Arthritis M19.90 and Otalgia of both ears H92.03 [place] [address] [address] 28 Feb, 2018 [place] [address] [address] Feb, Low back pain M54.5 ; Other chronic pain G89.29 ; Exertional asthma J45.990 and Encounter for immunization Z23 [place] [address] [address] Feb, Skin fissures R23.4 ; Neuropathy G62.9 and Onychomycosis B35.1 [place] [address] [address] 05 Feb, 2018 Dysthymic disorder F34.1 [place] [address] [address] 04 Feb, 2018 [place] [address] [address] Jan, [place] [address] [address] Jan, Abrasion of right elbow, initial encounter S50.311A ; Abrasion, right knee, initial encounter S80.211A and Sprain of other ligament of right ankle, initial encounter S93.491A [place] [address] [address] Jan, [facility] [address] [address] Jan, Injury of left ankle, initial encounter S99.912A ; Fall down stairs, initial encounter W10.8XXA and BMI 45.0-49.9, adult Z68.42 [place] [id number] [place] [address] Jan, COPD exacerbation J44.1 [place] [id number] [place] [address] Jan, Dysfunction of both eustachian 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 [place] [address] [address] 08 Jan, 2018 Bronchitis J40 and Acute suppurative otitis media of left ear without spontaneous rupture of tympanic membrane, recurrence not specified H66.002 [place] [id number] [place] [address] Jan, [place] [address] [place] [address] [id number] [place] [address] Jan, Bronchitis J40 and BMI 40.0-44.9, adult Z68.41 [place] [address] [address] Jan, [place] [address] [address] [id number] [place] [address] Dec, Gastric pain R10.9 [place] [address] [id number] [place] [address] Dec, [place] [id number] [place] [address] Dec, History of illicit drug use Z87.898 ; Neuropathy G62.9 ; COPD (chronic obstructive pulmonary disease) with chronic bronchitis J44.9 and Acute pain of right knee M25.561 [place] [id number] [place] [address] Nov, [place] [id number] [place] [address] Nov, Onychomycosis B35.1 and Contusion of left foot, subsequent encounter S90.32XD [facility] [place] [id number] [place] [address] Nov, COPD exacerbation J44.[address] [address] Sep, [place] [id number] [place] [address] Sep, Dysthymic disorder F34.1 ; Tobacco abuse Z72.0 ; Pain in right knee M25.561 ; Pain in left knee M25.562 ; Other chronic pain G89.29 and BMI 40.0- 44.9, adult Z68.[address] [address] Aug, Major depressive disorder, recurrent episode, moderate F33.1 and 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 [address] Aug, Dysthymic disorder F34.1 ; Non-pressure chronic ulcer of left thigh, unspecified ulcer stage L97.129 ; Tobacco abuse Z72.0 ; Mild chronic obstructive pulmonary disease J44.9 and Forgetfulness R68.89 [place] [id number] [place] [address] Aug, Onychomycosis B35.1 ; Fissure in skin of foot R23.4 and Foot callus L84 [facility] [place] [id number] [place] [address] Jul, Right medial knee pain M25.561 ; Upper respiratory tract infection, unspecified type J06.9 and BMI 40.0-44.9, adult Z68.41 [facility] [place] [id number] [place] [address] 08 Jul, 2017 Nausea and vomiting, intractability of vomiting not specified, unspecified vomiting type R11.2 ; Left ear pain H92.02 and Gastric pain R10.[address] [address] Apr, Encounter for immunization Z23 [facility] [address] [address] Apr, Onychomycosis B35.1 ; Xerosis of skin L85.3 ; Neuropathy G62.9 and 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 [facility] [id number] [place] [address] Jan, Onychomycosis B35.1 and Neuropathy G62.9 [facility] [id number] [place] [address] Dec, [facility] [id number] [place] [address] Dec, [facility] [id number] [place] [address] Nov, [facility] [id number] [place] [address] Aug, [facility] [id number] [place] [address] Aug, [facility] [address] [place] [address] Jul, [facility] [address] [address] Jul, [facility] [address] [address] Jul, Decubitus ulcer of left thigh, stage 2 L89.892 [facility] [address] [place] [address] Jul, Decubitus ulcer of left thigh, stage 2 L89.892 [facility] [address] [address] Jul, [facility] [address] [address] 15 Jul, 2016 Decubitus ulcer of left thigh, stage 2 L89.892 [facility] [id number] [place] [address] 14 Jul, 2016 [facility] [address] [place] [address] 13 Jul, 2016 Cellulitis of other specified site L03.818 ; Illicit drug use F19.90 and Decubitus ulcer of left thigh, stage 2 L89.892 [facility] [address] [place] [address] 08 Jul, 2016 [facility] [address] [place] [id number] [place] [address] 06 Jul, 2016 Cellulitis of right breast N61.0 [facility] [address] [id number] [place] [address] Jun, [facility] [id number] [place] [address] Jun, [facility] [id number] [place] [address] Jun, Wheezing R06.2 and Arthralgia, unspecified joint M25.50 [facility] [address] [place] [address] May, [facility] [id number] [place] [address] May, [facility] [address] [place] [address] May, [facility] [address] [place] [address] May, Shortness of breath R06.02 [facility] [address] [address] May, Onychomycosis B35.1 and Fissure in skin of foot R23.4 [facility] [address] [address] 28 Apr, 2016 [facility] [id number] [place] [address] 18 Apr, 2016 Dizziness R42 [facility] [id number] [place] [address] 14 Apr, 2016 Shortness of breath R06.02 ; Essential hypertension I10 ; Dizziness R42 and On home oxygen therapy Z99.81 [facility] [id number] [place] [address] Apr, [facility] [address] [id number] [place] [address] 08 Apr, 2016 [facility] [id number] [place] [address] Apr, [facility] [id number] [place] [address] Apr, [facility] [id number] [place] [address] Apr, [facility] [id number] [place] [address] Apr, [facility] [id number] [place] [address] Apr, [facility] [id number] [place] [address] Mar, Mild chronic obstructive pulmonary disease J44.9 [facility] [id number] [place] [address] Mar, [facility] [id number] [place] [address] Mar, Epigastric pain R10.13 ; Low back pain M54.5 ; Other chronic pain G89.29 and Breast cancer screening Z12.39 [place] [address] [address] Mar, [facility] [address] [place] [address] Mar, [facility] [address] [address] Feb, [facility] [id number] [place] [address] Feb, [facility] [address] [place] [address] Feb, Fissure in skin of foot R23.4 and Onychomycosis B35.1 [facility] [address] [address] Jan, Agoraphobia F40.00 [place] [address] [place] [address] Dec, Agoraphobia F40.00 [facility] [address] [address] Dec, Mild persistent asthma without complication J45.30 ; Dysthymic disorder F34.1 and Upper respiratory tract infection, unspecified type J06.9 [facility] [address] [address] Nov, Agoraphobia F40.00 [facility] [address] [address] October, Agoraphobia F40.00 [facility] [address] [address] Sep, Panic disorder without agoraphobia F41.0 ; Agoraphobia F40.00 and Dysthymic disorder F34.1 [facility] [address] [address] Sep, Panic attacks F41.0 [place] [address] [place] [id number] [place] [address] Sep, [place] [address] [place] [id number] [place] [address] Sep, Panic disorder without agoraphobia F41.0 ; Varicose veins of both lower extremities I83.93 and Fatigue R53.83 [place] [address] [place] [id number] [place] [address] Sep, Fatigue R53.83 [place] [address] [place] [id number] [place] [address] Sep, [place] [address] [place] [id number] [place] [address] Aug, [place] [address] [place] [id number] [place] [address] Aug, [place] [address] [place] [id number] [place] [address] Aug, 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 [place] [address] [place] [id number] [place] [address] Aug, Panic disorder without agoraphobia F41.0 ; Agoraphobia F40.00 and Dysthymic disorder F34.1 [place] [address] [place] [id number] [place] [address] Aug, Shortness of breath R06.02 ; Panic attacks F41.0 ; COPD (chronic obstructive pulmonary disease) J44.9 ; Tobacco abuse Z72.0 ; Family history of diabetes mellitus Z83.3 and Weight gain R63.5 [place] [address] [place] [id number] [place] [address] Aug, [place] [address] [place] [id number] [place] [address] Jul, [place] [address] [address] Jun, Onychomycosis B35.1 ; Neuropathy G62.9 and Impaired circulation I99.9 [place] [address] [address] 09 Mar, 2015 Fissure in skin of foot R23.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 [place] [address] [address] 18 Feb, 2015 Family history of coronary arteriosclerosis V17.3 [place] [address] [address] 15 Feb, 2015 Allergic rhinitis due to pollen 477.0 ; Unspecified breast screening V76.10 ; Anxiety 300.00 and Family history of coronary arteriosclerosis V17.3 [place] [address] [address] Jan, [place] [address] [address] Dec, [place] [address] [address] Dec, Onychomycosis 110.1 and Skin fissures 709.8 [place] [address] [address] [place] [id number] [place] [address] Sep, [place] [address] [place] [id number] [place] [address] Sep, [place] [address] [place] [id number] [place] [address] Aug, [facility] [address] [address] Aug, [facility] [address] [place] [id number] [place] [address] Jul, [place] [address] [address] Jul, [facility] [place] [facility] [address] [id number] [place] [address] Jun, [facility] [place] [facility] [address] [id number] [place] [address] Jun, [facility] [place] [facility] [address] [id number] [place] [address] Jun, [facility] [place] [facility] [address] [id number] [place] [address] Jun, [facility] [place] [facility] [address] [id number] [place] [address] Jun, [facility] [place] [facility] [address] [id number] [place] [address] May, [facility] [place] [facility] [address] [id number] [place] [address] May, [facility] [place] [facility] [address] [id number] [place] [address] May, [facility] [place] [facility] [address] [id number] [place] [address] May, [facility] [place] [facility] [address] [id number] [place] [address] May, [facility] [place] [facility] [address] [id number] [place] [address] May, [facility] [place] [facility] [address] [id number] [place] [address] May, [facility] [place] [facility] [address] [id number] [place] [address] May, [facility] [place] [facility] [address] [id number] [place] [address] Apr, [facility] [place] [facility] [address] [id number] [place] [address] Apr, [facility] [place] [facility] [address] [id number] [place] [address] Apr, [facility] [place] [facility] [address] [id number] [place] [address] Apr, [facility] [place] [facility] [address] [id number] [place] [address] Apr, [facility] [place] [facility] [address] [id number] [place] [address] Apr, [facility] [place] [facility] [address] [id number] [place] [address] Apr, [facility] [place] [facility] [address] [id number] [place] [address] Apr, [facility] [place] [facility] [address] [id number] [place] [address] Apr, [facility] [place] [facility] [address] [facility] [id number] [place] [address] Apr, [facility] [place] [facility] [address] [id number] [place] [address] Mar, [facility] [place] [facility] [address] [facility] [id number] [place] [address] Mar, [facility] [place] [facility] [address] [facility] [id number] [place] [address] Mar, [facility] [place] [facility] [address] [id number] [place] [address] Mar, [facility] [place] [facility] [address] [id number] [place] [address] Mar, [facility] [place] [facility] [address] [id number] [place] [address] Mar, [facility] [place] [facility] [address] [facility] [id number] [place] [address] Mar, [facility] [place] [facility] [address] [facility] [id number] [place] [address] Mar, [facility] [place] [facility] [address] [id number] [place] [address] 24 Mar, 2014 [facility] [place] [facility] [address] [id number] [place] [address] Mar, [facility] [place] [facility] [address] [id number] [place] [address] Mar, [facility] [place] [facility] [address] [id number] [place] [address] Mar, [facility] [place] [facility] [address] [id number] [place] [address] Mar, [facility] [place] [facility] [address] [id number] [place] [address] Mar, [facility] [place] [facility] [address] [id number] [place] [address] Mar, [facility] [place] [facility] [address] [id number] [place] [address] Mar, [facility] [place] [facility] [address] [id number] [place] [address] 20 Mar, 2014 [facility] [place] [facility] [address] [id number] [address] 16 Mar, 2014 [facility] [place] [facility] [address] [id number] [address] 16 Mar, 2014 [facility] [place] [facility] [address] [id number] [place] [address] 15 Mar, 2014 [facility] [place] [facility] [address] [id number] [place] [address] 14 Mar, 2014 [facility] [place] [facility] [address] [id number] [place] [address] 14 Mar, 2014 [facility] [place] [facility] [address] [id number] [address] 14 Mar, 2014 [facility] [place] [facility] [address] [id number] [address] 14 Mar, 2013 [facility] [place] [facility] [address] [id number] [place] [address] 09 Mar, 2013 [facility] [place] [facility] [address] [id number] [place] [address] Mar, 2013 [facility] [place] [facility] [address] [id number] [place] [address] 09 Mar, 2013 [facility] [place] [facility] [address] [id number] [place] [address] Mar, 2013 [facility] [place] [facility] [address] [id number] [place] [address] 30 Sep, 2013 [facility] [place] [facility] [address] [id number] [place] [address] 30 Sep, 2013 [facility] [place] [facility] [address] [id number] [place] [address] 30 Sep, 2013 [facility] [place] [facility] [address] [id number] [place] [address] 30 Sep, 2013 [facility] [place] [facility] [address] [id number] [place] [address] 26 Sep, 2013 [facility] [place] [facility] [address] [id number] [place] [address] 26 Sep, 2013 [facility] [place] [facility] [address] [id number] [address] 09 Sep, 2013 [facility] [place] [facility] [address] [id number] [address] 09 Sep, 2013 [facility] [place] [facility] [address] [id number] [place] [address] 03 Sep, 2013 [facility] [place] [facility] [address] [id number] [place] [address] 03 Sep, 2013 [facility] [place] [facility] [address] [id number] [place] [address] 03 Sep, 2013 [facility] [place] [facility] [address] [id number] [place] [address] Feb, [facility] [place] [facility] [address] [id number] [place] [address] Jan, [facility] [place] [facility] [address] [id number] [place] [address] Jan, [facility] [place] [facility] [address] [id number] [place] [address] Jan, [facility] [place] [facility] [address] [id number] [place] [address] Jan, [facility] [place] [facility] [address] [id number] [place] [address] Jan, [facility] [place] [facility] [address] [id number] [place] [address] Jan, [facility] [place] [facility] [address] [id number] [place] [address] Jan, [facility] [place] [facility] [address] [id number] [place] [address] Jan, [facility] [place] [facility] [address] [id number] [place] [address] Jan, [facility] [place] [facility] [address] [id number] [place] [address] Jan, [facility] [place] [facility] [address] [id number] [place] [address] Jan, [facility] [place] [facility] [address] [id number] [place] [address] Jan, [facility] [place] [facility] [address] [id number] [place] [address] Jan, [facility] [place] [facility] [address] [id number] [place] [address] Dec, [facility] [place] [facility] [address] [id number] [place] [address] Dec, [facility] [place] [facility] [address] [id number] [place] [address] Dec, [facility] [place] [facility] [address] [id number] [place] [address] Dec, [facility] [place] [facility] [address] [id number] [place] [address] Dec, [facility] [place] [facility] [address] [id number] [place] [address] Dec, [facility] [place] [facility] [address] [id number] [place] [address] Dec, [facility] [place] [facility] [address] [id number] [place] [address] Dec, [facility] [place] [facility] [address] [id number] [place] [address] Dec, [facility] [place] [facility] [address] [id number] [place] [address] Dec, [facility] [place] [facility] [address] [id number] [place] [address] Dec, [facility] [place] [facility] [address] [id number] [place] [address] Dec, [facility] [place] [facility] [address] [id number] [place] [address] Dec, [facility] [place] [facility] [address] [id number] [place] [address] Dec, [facility] [place] [facility] [address] [id number] [place] [address] Dec, [facility] [place] [facility] [address] [id number] [place] [address] Dec, [facility] [place] [facility] [address] [id number] [place] [address] Dec, 2013 [facility] [place] [facility] [address] [id number] [place] [address] 08 Dec, 2013 [facility] [place] [facility] [address] [id number] [place] [address] Nov, [facility] [place] [facility] [address] [id number] [place] [address] Nov, [facility] [place] [facility] [address] [id number] [place] [address] Nov, [facility] [place] [facility] [address] [id number] [place] [address] Nov, [facility] [place] [facility] [address] [id number] [place] [address] Nov, [facility] [place] [facility] [address] [id number] [place] [address] Nov, [facility] [place] [facility] [address] [id number] [place] [address] Nov, [facility] [place] [facility] [address] [id number] [place] [address] Nov, [facility] [place] [facility] [address] [id number] [place] [address] Nov, [facility] [place] [facility] [address] [id number] [place] [address] Nov, [facility] [place] [facility] [address] [id number] [place] [address] Nov, [facility] [place] [facility] [address] [id number] [place] [address] Nov, [facility] [place] [facility] [address] [id number] [place] [address] Nov, [facility] [place] [facility] [address] [id number] [place] [address] Nov, [facility] [place] [facility] [address] [id number] [place] [address] Nov, [facility] [place] [facility] [address] [id number] [place] [address] Nov, [facility] [place] [facility] [address] [id number] [place] [address] Nov, [facility] [place] [facility] [address] [id number] [place] [address] Nov, [facility] [place] [facility] [address] [id number] [place] [address] Nov, [facility] [place] [facility] [address] [id number] [place] [address] Nov, [facility] [place] [facility] [address] [id number] [place] [address] October, [facility] [place] [facility] [address] [id number] [place] [address] October, [facility] [place] [facility] [address] [id number] [place] [address] October, [facility] [place] [facility] [address] [id number] [place] [address] October, [facility] [place] [facility] [address] [id number] [place] [address] Sep, [facility] [place] [facility] [address] [id number] [place] [address] Sep, [facility] [place] [facility] [address] [id number] [place] [address] Sep, [facility] [place] [facility] [address] [id number] [place] [address] Sep, [facility] [place] [facility] [address] [id number] [place] [address] Sep, [facility] [place] [facility] [address] [id number] [place] [address] Sep, [facility] [place] [facility] [address] [id number] [place] [address] Sep, [facility] [place] [facility] [address] [id number] [place] [address] Sep, [facility] [place] [facility] [address] [id number] [place] [address] Sep, [facility] [place] [facility] [address] [id number] [place] [address] Aug, [facility] [place] [facility] [address] [id number] [place] [address] Aug, [facility] [place] [facility] [address] [id number] [place] [address] Aug, [facility] [place] [facility] [address] [id number] [place] [address] Aug, [facility] [place] [facility] [address] [id number] [place] [address] Aug, [facility] [place] [facility] [address] [id number] [place] [address] Aug, [facility] [place] [facility] [address] [id number] [place] [address] Aug, [facility] [place] [facility] [address] [id number] [place] [address] Aug, [facility] [place] [facility] [address] [id number] [place] [address] Jul, [facility] [place] [facility] [address] [id number] [place] [address] Jul, [facility] [place] [facility] [address] [id number] [place] [address] Jun, [facility] [place] [facility] [address] [id number] [place] [address] Jun, [facility] [place] [facility] [address] [id number] [place] [address] Jun, [facility] [place] [facility] [address] [id number] [place] [address] Jun, [facility] [address] [id number] [place] [address] Jun, [facility] [address] [id number] [place] [address] Jun, [facility] [address] [id number] [place] [address] Jun, [facility] [address] [id number] [place] [address] Jun, [facility] [address] [id number] [place] [address] Jun, [facility] [address] [id number] [place] [address] Jun, [facility] [address] [id number] [place] [address] Jun, [facility] [address] [id number] [place] [address] Jun, [facility] [address] [id number] [place] [address] May, [facility] [address] [id number] [place] [address] May, [facility] [address] [id number] [place] [address] May, [facility] [address] [id number] [place] [address] May, [facility] [place] [facility] [address] [id number] [place] [address] May, [facility] [address] [id number] [place] [address] May, [facility] [address] [id number] [place] [address] May, [facility] [place] [facility] [address] [id number] [place] [address] May, [facility] [place] [facility] [address] [id number] [place] [address] May, [facility] [place] [facility] [address] [id number] [place] [address] May, [facility] [place] [facility] [address] [id number] [place] [address] May, [facility] [place] [facility] [address] [id number] [place] [address] May, [facility] [place] [facility] [address] [id number] [place] [address] May, [facility] [place] [facility] [address] [id number] [place] [address] Apr, [facility] [place] [facility] [address] [id number] [place] [address] Apr, [facility] [place] [facility] [address] [id number] [place] [address] Mar, [facility] [place] [facility] [address] [id number] [place] [address] Mar, [facility] [place] [facility] [address] [id number] [place] [address] 24 Feb, 2013 [facility] [place] [facility] [address] [id number] [address] Feb, [facility] [place] [facility] [address] [id number] [place] [address] 05 Feb, 2013 [facility] [place] [facility] [address] [id number] [place] [address] 04 Feb, 2013 [facility] [place] [facility] [address] [id number] [place] [address] Jan, [facility] [place] [facility] [address] [id number] [place] [address] Jan, [facility] [address] [id number] [place] [address] Jan, [facility] [address] [id number] [place] [address] Jan, [facility] [address] [id number] [place] [address] Jan, [facility] [place] [facility] [address] [id number] [place] [address] Jan, [facility] [address] [id number] [place] [address] Dec, [facility] [address] [id number] [place] [address] Dec, [facility] [address] [id number] [place] [address] Dec, [facility] [address] [id number] [place] [address] Dec, [facility] [address] [id number] [place] [address] Nov, [facility] [address] [id number] [place] [address] October, [facility] [address] [id number] [place] [address] October, [facility] [place] [facility] [address] [id number] [place] [address] October, [facility] [place] [facility] [address] [id number] [place] [address] Sep, [facility] [place] [facility] [address] [id number] [place] [address] Sep, [facility] [place] [facility] [address] [id number] [place] [address] Jun, [facility] [place] [facility] [address] [id number] [place] [address] Jun, [facility] [place] [facility] [address] [id number] [place] [address] Jun, [facility] [place] [facility] [address] [id number] [place] [address] Apr, [facility] [place] [facility] [address] [id number] [place] [address] Apr, [facility] [place] [facility] [address] [id number] [place] [address] Apr, [facility] [place] [facility] [address] [id number] [place] [address] Apr, [facility] [place] [facility] [address] [id number] [place] [address] Mar, [facility] [place] [facility] [address] [id number] [place] [address] Mar, [facility] [place] [facility] [address] [id number] [place] [address] Mar, [facility] [place] [facility] [address] [id number] [place] [address] Mar, [facility] [place] [facility] [address] [id number] [place] [address] 29 Feb, 2012 [facility] [place] [facility] [address] [id number] [place] [address] 27 Feb, 2012 [facility] [place] [facility] [address] [id number] [place] [address] 20 Feb, 2012 [facility] [place] [facility] [address] [id number] [place] [address] 30 Jan, 2012 [facility] [place] [facility] [address] [id number] [place] [address] 16 Jan, 2012 [facility] [place] [facility] [address] [id number] [place] [address] Jan, [facility] [address] [id number] [place] [address] Jan, [facility] [place] [facility] [address] [id number] [place] [address] Dec, [facility] [place] [facility] [address] [id number] [place] [address] Dec, [facility] [place] [facility] [address] [id number] [place] [address] Nov, [facility] [place] [facility] [address] [id number] [place] [address] Nov, [facility] [place] [facility] [address] [id number] [place] [address] October, [facility] [place] [facility] [address] [id number] [place] [address] October, [facility] [place] [facility] [address] [id number] [place] [address] October, [facility] [place] [facility] [address] [id number] [place] [address] Sep, [facility] [place] [facility] [address] [id number] [place] [address] Sep, [facility] [place] [facility] [address] [id number] [address] Sep, [facility] [place] [facility] [address] [id number] [address] Aug, [facility] [place] [facility] [address] [id number] [place] [address] Aug, [facility] [place] [facility] [address] [id number] [place] [address] Aug, [facility] [place] [facility] [address] [id number] [place] [address] Aug, [facility] [place] [facility] [address] [id number] [place] [address] Aug, [facility] [place] [facility] [address] [id number] [place] [address] Jul, [facility] [place] [facility] [address] [id number] [place] [address] 16 Jul, 2011 [facility] [place] [facility] [address] [id number] [place] [address] Jul, [facility] [place] [facility] [address] [id number] [place] [address] Jul, [facility] [place] [facility] [address] [id number] [place] [address] Jul, [facility] [place] [facility] [address] [id number] [place] [address] Jul, [facility] [place] [facility] [address] [id number] [place] [address] Jul, [facility] [place] [facility] [address] [id number] [place] [address] Jul, [facility] [place] [facility] [address] [facility] [id number] [place] [address] Jun, [facility] [place] [facility] [address] [facility] [id number] [place] [address] Jun, [facility] [place] [facility] [address] [id number] [place] [address] May, [facility] [place] [facility] [address] [id number] [place] [address] May, [facility] [place] [facility] [address] [id number] [place] [address] May, [facility] [place] [facility] [address] [id number] [place] [address] May, [facility] [place] [facility] [address] [id number] [place] [address] Apr, [facility] [place] [facility] [address] [id number] [place] [address] Apr, [facility] [place] [facility] [address] [id number] [place] [address] Apr, [facility] [place] [facility] [address] [id number] [place] [address] Mar, [facility] [place] [facility] [address] [id number] [place] [address] Mar, [facility] [place] [facility] [address] [id number] [place] [address] Mar, [facility] [place] [facility] [address] [id number] [place] [address] Mar, [facility] [place] [facility] [address] [id number] [place] [address] Dec, [facility] [place] [facility] [address] [id number] [place] [address] October, [facility] [place] [facility] [address] [id number] [place] [address] May, [facility] [place] [facility] [address] [id number] [place] [address] May, [facility] [place] [facility] [address] [id number] [address] 13 May, 2010 [facility] [place] [facility] [address] [id number] [address] 06 May, 2010 [facility] [place] [facility] [address] [id number] [place] [address] Mar, [facility] [place] [facility] [address] [id number] [place] [address] Mar, [facility] [place] [facility] [address] [id number] [place] [address] 31 May, 2009 [facility] [place] [facility] [address] [facility] [id number] [place] [address] May, [facility] [address] [facility] [id number] [place] [address] May, [facility] [address] [facility] [id number] [place] [address] May, [facility] [address] [facility] [id number] [place] [address] Apr, [facility] [address] [facility] [id number] [place] [address] Apr, [facility] [address] [facility] [id number] [place] [address] October, IMMUNIZATIONS No Known Immunizations SOCIAL HISTORY Never Assessed REASON FOR VISIT Intake PLAN OF CARE Activity Details Follow Up 2 Weeks Reason: VITAL SIGNS MEDICATIONS Medication Instructions Dosage Frequency Start Date End Date Duration Status Simvastatin 40 mg Orally Once a day 1 tablet in the evening 24h 30 Active Ventolin HFA 108 (90 Base) MCG/ACT Inhalation every 4 hrs 2 puffs as needed 4h 07 Dec, 2015 90 days Active Meloxicam 7.5 MG Orally Once a day 1 tablet 24h 30 Active Quinapril HCl 20 mg Orally Once a day 2 tablets 24h 30 Active Azithromycin 500 MG Orally Once a day as directed 24h Jun, 3 days Active Guaifenesin 400 mg Orally every 4 hrs 1 tablet as needed 4h 10 Active Gabapentin 300 MG Orally Three times a day 1 capsule 8h 30 Active HydrOXYzine HCl 50 MG Orally 2 times a day 1 tablet 12h 30 days Active Cetirizine HCl 10 mg Orally Once a day 1 tablet 24h 30 Active Estradiol 0.5 MG Orally Once a day 1 tablet 24h 30 Active Nebulizer - as directed for use with inhaled medications Mar, lifetime Active Spironolactone 25 MG 1 tablet 30 Active Oxygen Active Omeprazole 20 MG Orally Once a day 1 capsule 24h 90 Active PredniSONE 20 MG Orally Once a day 2 tablet 24h Jun, 5 days Active Cyclobenzaprine HCl 10 mg Orally Three times a day 1 tablet as needed for spasms 8h 30 Active Ranitidine HCl 150 MG Orally 2 times a day 1 tablet 12h 30 Active Albuterol Sulfate (2.5 mg/3ml) 0.083% Inhalation every 6 hrs 3 ml as needed 6h Active Lexapro 10 MG Orally Once a day 1 tablet 24h 13 Jul, 2018 30 day(s) Active Ropinirole HCl 0.5 MG Orally Once a day 1 tablet 1 to 3 hours before bedtime 24h 30 Active Montelukast Sodium 10 MG Orally Once a day 1 tablet in the evening 24h 90 Active Toviaz 4 MG Orally Once a day 1 tablet 24h Active Spiriva HandiHaler 18 MCG Inhalation Once a day 1 capsule 24h 28 Feb, 2018 Active RESULTS No Results PROCEDURES Procedure Date Ordered Result Body Site Psych diagnostic evaluation, established patient August 20, 2018 INSTRUCTIONS MEDICATIONS ADMINISTERED No Known Medications [...]
--- OUTSIDE RECORDS SUMMARY | 2019-01-13 10:14 | XMS REPORT ---
Author Author Migration, Doctor Organization 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 Name Role Phone Migration, Doctor Unavailable Unavailable PROBLEMS Type Condition ICD9-CM Code PRI72-YA Code Onset Dates Condition Status SNOMED Code Problem MRSA (methicillin resistant staph aureus) culture positive Z22.322 Active 427355826 Problem History of illicit drug use Z87.898 Active 056910906 Problem Snoring R06.83 Active 05623623 Problem Dysthymic disorder F34.1 Active 12226819 Problem Impaired circulation I99.9 Active 08058990 Problem 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 Active 14359583 Problem Major depressive disorder, recurrent episode, moderate F33.1 Active 284902793 Problem Mild persistent asthma without complication J45.30 Active 691326421 Problem Fatigue R53.83 Active 72733988 Problem Other chronic pain G89.29 Active 04589381 Problem Upper respiratory tract infection, unspecified type J06.9 Active 15760967 Problem On home oxygen therapy Z99.81 Active 740980769716 Problem Mild chronic obstructive pulmonary disease J44.9 Active 337074248 Problem Neuropathy G62.9 Active 734743392 Problem Essential hypertension I10 Active 49470113 Problem COPD exacerbation J44.1 Active 804563755 Problem COPD (chronic obstructive pulmonary disease) with chronic bronchitis J44.9 Active 205043743 Problem Exertional asthma J45.990 Active 32526307 Problem Swallowing problem R13.10 Active 625880687 Problem Agoraphobia F40.00 Active 04751203 Problem Hypertension, benign I10 Active 22585247 Problem Panic disorder without agoraphobia F41.0 Active 04929464 Problem Varicose veins of both lower extremities I83.93 Active 72025272 Problem 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 176330582 Problem Arthritis M19.90 Active 4901958 Problem Mood disorder F39 Active 24363160 Problem Psychotic disorder F29 Active 59287980 ALLERGIES Substance Reaction Event Type Date Status Hydrocodone-acetaminophen 10-325 Mg Tablet [employer] Non Drug Allergy Sep, Active Bactrim Ds 800-160 Mg Tablet numbness in hands Non Drug Allergy Sep, Active ENCOUNTERS Encounter Location Date Diagnosis [place] [id number] [place] [id number] Feb, [facility] [id number] [place] [address] Dec, [facility] [address] [address] Dec, [place] [id number] [place] [address] Nov, [place] [id number] [place] [address] Nov, Morbid obesity E66.01 [place] [address] [address] Nov, Major depressive disorder, recurrent episode, moderate F33.1 and Panic disorder without agoraphobia F41.0 [facility] [id number] [place] [id number] Nov, Allergic reaction, initial encounter T78.40XA and Morbid obesity E66.01 [facility] [id number] [place] [id number] 18 Nov, 2018 [facility] [id number] [place] [address] 13 Nov, 2018 Morbid obesity E66.01 ; Swallowing problem R13.10 and Hypertension, benign I10 [facility] [id number] [place] [address] 07 Nov, 2018 Morbid obesity E66.01 ; COPD exacerbation J44.1 and Non-recurrent acute suppurative otitis media of left ear without spontaneous rupture of tympanic membrane H66.002 [facility] [id number] [place] [id number] 07 Nov, 2018 Onychomycosis B35.1 ; Neuropathy G62.9 and Fissure in skin of foot R23.4 [facility] [id number] [address] October, Major depressive disorder, recurrent episode, moderate F33.1 ; Panic disorder without agoraphobia F41.0 and Morbid obesity E66.01 [facility] [id number] [address] October, Viral upper respiratory tract infection J06.9 [facility] [id number] [address] October, [facility] [id number] [place] [id number] October, Major depressive disorder, recurrent episode, moderate F33.1 and Panic disorder without agoraphobia F41.0 [facility] [id number] [place] [id number] October, [facility] [id number] [place] [address] October, [facility] [id number] [place] [address] October, [facility] [id number] [address] October, [facility] [id number] [address] October, [facility] [id number] [address] October, [facility] [id number] [place] [id number] October, Major depressive disorder, recurrent episode, moderate F33.1 and Panic disorder without agoraphobia F41.0 [facility] [address] [address] Sep, Morbid obesity E66.01 and Lumbar neuritis M54.16 [facility] [id number] [place] [address] Sep, Panic disorder without agoraphobia F41.0 and Major depressive disorder, recurrent episode, moderate F33.1 [facility] [id number] [place] [address] Sep, Gastroenteritis K52.9 ; Low back pain M54.5 ; Other chronic pain G89.29 and Morbid obesity E66.01 [facility] [id number] [place] [address] Sep, Major depressive disorder, recurrent episode, moderate F33.1 ; Panic disorder without agoraphobia F41.0 and 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 [place] [id number] [place] [address] Sep, Panic disorder without agoraphobia F41.0 [facility] [id number] [place] [address] Sep, Panic disorder without agoraphobia F41.0 [place] [id number] [place] [address] Aug, Panic disorder without agoraphobia F41.0 ; Major depressive disorder, recurrent episode, moderate F33.1 ; 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 ; Psychotic disorder F29 ; Tardive dyskinesia G24.01 and Morbid obesity E66.01 [facility] [id number] [place] [address] Aug, Dysthymic disorder F34.1 and Psychotic disorder F29 [place] [address] [address] Aug, Encounter for Medicare annual wellness exam Z00.00 ; Morbid obesity E66.01 and 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 [place] [id number] [place] [address] Aug, Dysthymic disorder F34.1 and Psychotic disorder F29 [place] [id number] [place] [address] Aug, Neuropathy G62.9 ; Onychomycosis B35.1 and Xerosis of skin L85.3 [place] [address] [address] Jul, [place] [address] [address] Jul, Mood disorder F39 ; Wheezing R06.2 ; Choking, initial encounter T17.308A and Coughing R05 [place] [address] [address] Jul, Low back pain M54.5 [facility] [address] [address] Jun, Flu-like symptoms R68.89 ; BMI 45.0-49.9, adult Z68.42 ; COPD exacerbation J44.1 and Acute bronchitis J20.[address] [address] Jun, [place] [id number] [place] [id number] May, [place] [address] [address] May, Onychomycosis B35.1 and 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 [place] [id number] [place] [address] May, Low back pain M54.5 and Edema leg R60.0 [place] [address] [address] May, BMI 45.0-49.9, adult Z68.42 ; Well woman exam with routine gynecological exam Z01.419 and Breast cancer screening Z12.31 [place] [id number] [place] [id number] 19 Apr, 2018 Arthritis M19.90 [place] [address] [address] 16 Apr, 2018 Arthritis M19.90 and Otalgia of both ears H92.[address] [address] 28 Feb, 2018 [place] [address] [address] 28 Feb, 2018 Low back pain M54.5 ; Other chronic pain G89.29 ; Exertional asthma J45.990 and Encounter for immunization Z23 [place] [address] [address] 21 Feb, 2018 Skin fissures R23.4 ; Neuropathy G62.9 and Onychomycosis B35.1 [place] [address] [address] 05 Feb, 2018 Dysthymic disorder F34.[address] [address] 04 Feb, 2018 [place] [address] [address] Jan, [place] [address] [address] Jan, Abrasion of right elbow, initial encounter S50.311A ; Abrasion, right knee, initial encounter S80.211A and Sprain of other ligament of right ankle, initial encounter S93.491A [place] [address] [address] Jan, [facility] [id number] [place] [address] Jan, Injury of left ankle, initial encounter S99.912A ; Fall down stairs, initial encounter W10.8XXA and BMI 45.0-49.9, adult Z68.42 [place] [address] [address] Jan, COPD exacerbation J44.1 [place] [address] [address] 13 Jan, 2018 Dysfunction of both eustachian 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 [place] [address] [address] Jan, Bronchitis J40 and Acute suppurative otitis media of left ear without spontaneous rupture of tympanic membrane, recurrence not specified H66.002 [place] [address] [address] Jan, [place] [address] [address] Jan, Bronchitis J40 and BMI 40.0-44.9, adult Z68.41 [place] [address] [address] Jan, [place] [address] [address] Dec, Gastric pain R10.9 [place] [address] [address] Dec, [place] [address] [address] Dec, History of illicit drug use Z87.898 ; Neuropathy G62.9 ; COPD (chronic obstructive pulmonary disease) with chronic bronchitis J44.9 and Acute pain of right knee M25.561 [place] [address] [address] Nov, [place] [address] [address] Nov, Onychomycosis B35.1 and Contusion of left foot, subsequent encounter S90.32XD [place] [address] [address] Nov, COPD exacerbation J44.[address] [address] Sep, [address] [address] Sep, Dysthymic disorder F34.1 ; Tobacco abuse Z72.0 ; Pain in right knee M25.561 ; Pain in left knee M25.562 ; Other chronic pain G89.29 and BMI 40.0- 44.9, adult Z68.[address] [address] Aug, Major depressive disorder, recurrent episode, moderate F33.1 and 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 [address] Aug, Dysthymic disorder F34.1 ; Non-pressure chronic ulcer of left thigh, unspecified ulcer stage L97.129 ; Tobacco abuse Z72.0 ; Mild chronic obstructive pulmonary disease J44.9 and Forgetfulness R68.89 [place] [id number] [place] [address] Aug, Onychomycosis B35.1 ; Fissure in skin of foot R23.4 and Foot callus L[address] [facility] [address] [address] Jul, Right medial knee pain M25.561 ; Upper respiratory tract infection, unspecified type J06.9 and BMI 40.0-44.9, adult Z68.[address] 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 [facility] [id number] [place] [address] Jan, Onychomycosis B35.1 and Neuropathy G62.9 [facility] [id number] [place] [address] Dec, [facility] [id number] [place] [address] Dec, [facility] [id number] [place] [address] Nov, [facility] [id number] [place] [address] Aug, [facility] [id number] [place] [address] Aug, [facility] [id number] [address] Jul, [facility] [id number] [place] [address] Jul, [facility] [id number] [address] Jul, Decubitus ulcer of left thigh, stage 2 L89.892 [facility] [id number] [address] Jul, Decubitus ulcer of left thigh, stage 2 L89.892 [facility] [id number] [place] [address] Jul, [facility] [id number] [place] [address] 15 Jul, 2016 Decubitus ulcer of left thigh, stage 2 L89.892 [facility] [id number] [place] [address] 14 Jul, 2016 [facility] [id number] [place] [address] 13 Jul, 2016 Cellulitis of other specified site L03.818 ; Illicit drug use F19.90 and Decubitus ulcer of left thigh, stage 2 L89.892 [facility] [id number] [place] [address] 08 Jul, 2016 [facility] [id number] [place] [address] 06 Jul, 2016 Cellulitis of right breast N61.0 [facility] [id number] [place] [address] Jun, [facility] [id number] [place] [address] Jun, [facility] [id number] [place] [address] Jun, Wheezing R06.2 and Arthralgia, unspecified joint M25.50 [facility] [id number] [place] [address] May, [facility] [id number] [place] [address] May, [facility] [id number] [place] [address] May, [facility] [id number] [place] [address] May, Shortness of breath R06.02 [facility] [id number] [place] [address] May, Onychomycosis B35.1 and Fissure in skin of foot R23.4 [facility] [id number] [place] [address] Apr, [facility] [id number] [place] [address] 18 Apr, 2016 Dizziness R42 [facility] [address] [address] 14 Apr, 2016 Shortness of breath R06.02 ; Essential hypertension I10 ; Dizziness R42 and On home oxygen therapy Z99.81 [facility] [address] [address] Apr, [facility] [id number] [place] [address] 08 Apr, 2016 [facility] [id number] [place] [address] Apr, [facility] [id number] [place] [address] Apr, [facility] [id number] [place] [address] Apr, [facility] [id number] [place] [address] Apr, [facility] [id number] [place] [address] Apr, [facility] [id number] [place] [address] Mar, Mild chronic obstructive pulmonary disease J44.9 [facility] [id number] [place] [address] Mar, [facility] [id number] [place] [address] Mar, Epigastric pain R10.13 ; Low back pain M54.5 ; Other chronic pain G89.29 and Breast cancer screening Z12.39 [place] [id number] [place] [address] Mar, [place] [id number] [place] [address] Mar, [place] [id number] [place] [address] Feb, [place] [id number] [place] [address] Feb, [place] [id number] [place] [address] Feb, Fissure in skin of foot R23.4 and Onychomycosis B35.1 [place] [id number] [place] [address] Jan, Agoraphobia F40.00 [place] [id number] [place] [address] Dec, Agoraphobia F40.00 [place] [id number] [place] [address] Dec, Mild persistent asthma without complication J45.30 ; Dysthymic disorder F34.1 and Upper respiratory tract infection, unspecified type J06.9 [place] [id number] [place] [address] Nov, Agoraphobia F40.00 [place] [id number] [place] [address] October, Agoraphobia F40.00 [place] [id number] [place] [address] Sep, Panic disorder without agoraphobia F41.0 ; Agoraphobia F40.00 and Dysthymic disorder F34.1 [place] [id number] [place] [address] Sep, Panic attacks F41.0 [place] [id number] [place] [address] Sep, [facility] [id number] [place] [address] Sep, Panic disorder without agoraphobia F41.0 ; Varicose veins of both lower extremities I83.93 and Fatigue R53.83 [place] [id number] [place] [address] Sep, Fatigue R53.83 [place] [id number] [place] [address] Sep, [place] [id number] [place] [address] Aug, [place] [id number] [place] [address] Aug, [place] [id number] [place] [address] Aug, 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 [place] [id number] [place] [address] Aug, Panic disorder without agoraphobia F41.0 ; Agoraphobia F40.00 and Dysthymic disorder F34.1 [place] [id number] [place] [address] Aug, Shortness of breath R06.02 ; Panic attacks F41.0 ; COPD (chronic obstructive pulmonary disease) J44.9 ; Tobacco abuse Z72.0 ; Family history of diabetes mellitus Z83.3 and Weight gain R63.5 [place] [id number] [place] [address] Aug, [place] [id number] [place] [address] Jul, [place] [id number] [place] [address] 08 Jun, 2015 Onychomycosis B35.1 ; Neuropathy G62.9 and Impaired circulation I99.9 [facility] [id number] [place] [address] 09 Mar, 2015 Fissure in skin of foot R23.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 [place] [id number] [place] [address] 18 Feb, 2015 Family history of coronary arteriosclerosis V17.3 [place] [address] [address] 15 Feb, 2015 Allergic rhinitis due to pollen 477.0 ; Unspecified breast screening V76.10 ; Anxiety 300.00 and Family history of coronary arteriosclerosis V17.3 [place] [id number] [place] [address] Jan, [place] [id number] [place] [address] Dec, [place] [id number] [place] [address] Dec, Onychomycosis 110.1 and Skin fissures 709.8 [place] [id number] [place] [address] Sep, [place] [id number] [place] [address] Sep, [place] [id number] [place] [address] Aug, [place] [id number] [place] [id number] Aug, [place] [id number] [place] [id number] Jul, [place] [address] [id number] [place] [address] Jul, [facility] [place] [facility] [address] [id number] [place] [address] Jun, [facility] [place] [facility] [address] [id number] [place] [address] Jun, [facility] [place] [facility] [address] [id number] [place] [address] Jun, [facility] [place] [facility] [address] [id number] [place] [address] Jun, [facility] [place] [facility] [address] [id number] [place] [address] Jun, [facility] [place] [facility] [address] [id number] [place] [address] May, [facility] [place] [facility] [address] [id number] [place] [address] May, [facility] [place] [facility] [address] [id number] [place] [address] May, [facility] [place] [facility] [address] [id number] [place] [address] May, [facility] [place] [facility] [address] [id number] [place] [address] May, [facility] [place] [facility] [address] [id number] [place] [address] May, [facility] [place] [facility] [address] [id number] [place] [address] May, [facility] [place] [facility] [address] [id number] [place] [address] May, [facility] [place] [facility] [address] [id number] [place] [address] Apr, [facility] [place] [facility] [address] [id number] [place] [address] Apr, [facility] [place] [facility] [address] [id number] [place] [address] Apr, [facility] [place] [facility] [address] [id number] [place] [address] Apr, [facility] [place] [facility] [address] [facility] [id number] [place] [address] Apr, [facility] [place] [facility] [address] [id number] [place] [address] Apr, [facility] [place] [facility] [address] [id number] [place] [address] Apr, [facility] [place] [facility] [address] [id number] [place] [address] Apr, [facility] [place] [facility] [address] [id number] [place] [address] Apr, [facility] [place] [facility] [address] [id number] [address] Apr, [facility] [place] [facility] [address] [id number] [place] [address] Mar, [facility] [place] [facility] [address] [id number] [place] [address] Mar, [facility] [place] [facility] [address] [id number] [address] Mar, [facility] [place] [facility] [address] [id number] [address] Mar, [facility] [place] [facility] [address] [id number] [place] [address] Mar, [facility] [place] [facility] [address] [id number] [address] Mar, [facility] [place] [facility] [address] [id number] [address] Mar, [facility] [place] [facility] [address] [id number] [place] [address] 27 Mar, 2013 [facility] [place] [facility] [address] [id number] [place] [address] 24 Mar, 2014 [facility] [place] [facility] [address] [id number] [place] [address] 23 Mar, 2014 [facility] [place] [facility] [address] [id number] [place] [address] 23 Mar, 2014 [facility] [place] [facility] [address] [id number] [place] [address] Mar, [facility] [place] [facility] [address] [id number] [place] [address] Mar, [facility] [place] [facility] [address] [id number] [place] [address] Mar, [facility] [place] [facility] [address] [id number] [place] [address] 22 Mar, 2014 [facility] [place] [facility] [address] [id number] [place] [address] 20 Mar, 2014 [facility] [place] [facility] [address] [id number] [place] [address] 20 Mar, 2014 [facility] [place] [facility] [address] [id number] [place] [address] 16 Mar, 2014 [facility] [place] [facility] [address] [id number] [place] [address] 16 Mar, 2013 [facility] [place] [facility] [address] [id number] [place] [address] 15 Mar, 2014 [facility] [place] [facility] [address] [id number] [place] [address] 14 Mar, 2014 [facility] [place] [facility] [address] [id number] [place] [address] 14 Mar, 2014 [facility] [place] [facility] [address] [id number] [place] [address] 14 Mar, 2014 [facility] [place] [facility] [address] [id number] [place] [address] 14 Mar, 2013 [facility] [place] [facility] [address] [id number] [place] [address] 09 Mar, 2013 [facility] [place] [facility] [address] [id number] [place] [address] 09 Mar, 2013 [facility] [place] [facility] [address] [id number] [place] [address] 09 Mar, 2013 [facility] [place] [facility] [address] [id number] [place] [address] 09 Mar, 2013 [facility] [place] [facility] [address] [id number] [place] [address] 30 Feb, 2013 [facility] [place] [facility] [address] [id number] [place] [address] 30 Sep, 2013 [facility] [place] [facility] [address] [id number] [place] [address] 30 Sep, 2013 [facility] [place] [facility] [address] [id number] [place] [address] 30 Sep, 2013 [facility] [place] [facility] [address] [id number] [place] [address] 26 Sep, 2013 [facility] [place] [facility] [address] [id number] [address] 26 Sep, 2013 [facility] [place] [facility] [address] [id number] [address] 09 Sep, 2013 [facility] [place] [facility] [address] [id number] [place] [address] 09 Sep, 2013 [facility] [place] [facility] [address] [id number] [place] [address] 03 Sep, 2013 [facility] [place] [facility] [address] [id number] [address] 03 Sep, 2013 [facility] [place] [facility] [address] [id number] [address] Feb, [facility] [place] [facility] [address] [id number] [place] [address] Feb, [facility] [place] [facility] [address] [id number] [place] [address] Jan, [facility] [place] [facility] [address] [id number] [place] [address] Jan, [facility] [place] [facility] [address] [id number] [place] [address] Jan, [facility] [place] [facility] [address] [id number] [place] [address] Jan, [facility] [place] [facility] [address] [id number] [place] [address] Jan, [facility] [place] [facility] [address] [id number] [place] [address] Jan, [facility] [place] [facility] [address] [id number] [place] [address] Jan, [facility] [place] [facility] [address] [id number] [place] [address] Jan, [facility] [place] [facility] [address] [id number] [place] [address] Jan, [facility] [place] [facility] [address] [id number] [place] [address] Jan, [facility] [place] [facility] [address] [id number] [place] [address] Jan, [facility] [place] [facility] [address] [id number] [place] [address] Jan, [facility] [place] [facility] [address] [id number] [place] [address] Jan, [facility] [place] [facility] [address] [id number] [place] [address] Dec, [facility] [place] [facility] [address] [id number] [facility] [address] Dec, 2013 [facility] [place] [facility] [address] [id number] [facility] [place] [address] Dec, [facility] [place] [facility] [address] [id number] [place] [address] Dec, [facility] [place] [facility] [address] [id number] [place] [address] Dec, 2013 [facility] [place] [facility] [address] [id number] [place] [address] Dec, [facility] [place] [facility] [address] [id number] [place] [address] Dec, [facility] [place] [facility] [address] [id number] [place] [address] Dec, 2013 [facility] [place] [facility] [address] [id number] [place] [address] Dec, 2013 [facility] [place] [facility] [address] [id number] [place] [address] Dec, [facility] [place] [facility] [address] [id number] [place] [address] Dec, [facility] [place] [facility] [address] [id number] [place] [address] Dec, [facility] [place] [facility] [address] [id number] [place] [address] Dec, 2013 [facility] [place] [facility] [address] [id number] [place] [address] Dec, 2013 [facility] [place] [facility] [address] [id number] [place] [address] Dec, 2013 [facility] [place] [facility] [address] [id number] [place] [address] Dec, [facility] [place] [facility] [address] [id number] [place] [address] Dec, [facility] [place] [facility] [address] [id number] [place] [address] Dec, [facility] [place] [facility] [address] [id number] [place] [address] Nov, [facility] [place] [facility] [address] [id number] [place] [address] Nov, [facility] [place] [facility] [address] [id number] [place] [address] Nov, [facility] [place] [facility] [address] [id number] [place] [address] Nov, [facility] [place] [facility] [address] [id number] [place] [address] Nov, [facility] [place] [facility] [address] [id number] [place] [address] Nov, [facility] [place] [facility] [address] [id number] [place] [address] Nov, [facility] [place] [facility] [address] [id number] [place] [address] Nov, [facility] [place] [facility] [address] [id number] [place] [address] Nov, [facility] [place] [facility] [address] [id number] [place] [address] Nov, [facility] [place] [facility] [address] [id number] [place] [address] Nov, [facility] [place] [facility] [address] [id number] [place] [address] Nov, [facility] [place] [facility] [address] [id number] [place] [address] Nov, [facility] [place] [facility] [address] [id number] [place] [address] Nov, [facility] [place] [facility] [address] [id number] [place] [address] Nov, [facility] [place] [facility] [address] [id number] [place] [address] Nov, [facility] [place] [facility] [address] [id number] [place] [address] Nov, [facility] [place] [facility] [address] [id number] [place] [address] Nov, [facility] [place] [facility] [address] [id number] [place] [address] Nov, [facility] [place] [facility] [address] [id number] [place] [address] Nov, [facility] [place] [facility] [address] [id number] [place] [address] October, [facility] [place] [facility] [address] [id number] [place] [address] October, [facility] [place] [facility] [address] [id number] [place] [address] October, [facility] [place] [facility] [address] [id number] [place] [address] October, [facility] [place] [facility] [address] [id number] [place] [address] Sep, [facility] [place] [facility] [address] [id number] [place] [address] Sep, [facility] [place] [facility] [address] [id number] [place] [address] Sep, [facility] [place] [facility] [address] [id number] [place] [address] Sep, [facility] [place] [facility] [address] [id number] [place] [address] Sep, [facility] [place] [facility] [address] [id number] [place] [address] Sep, [facility] [place] [facility] [address] [id number] [place] [address] Sep, [facility] [place] [facility] [address] [id number] [place] [address] Sep, [facility] [place] [facility] [address] [id number] [place] [address] Sep, [facility] [place] [facility] [address] [id number] [place] [address] Aug, [facility] [place] [facility] [address] [id number] [place] [address] Aug, [facility] [place] [facility] [address] [id number] [place] [address] Aug, [facility] [place] [facility] [address] [id number] [place] [address] Aug, [facility] [place] [facility] [address] [id number] [place] [address] Aug, [facility] [place] [facility] [address] [id number] [place] [address] Aug, [facility] [place] [facility] [address] [id number] [place] [address] Aug, [facility] [place] [facility] [address] [id number] [place] [address] Aug, [facility] [place] [facility] [address] [id number] [place] [address] Jul, [facility] [place] [facility] [address] [id number] [place] [address] Jul, [facility] [place] [facility] [address] [id number] [place] [address] Jun, [facility] [place] [facility] [address] [id number] [place] [address] Jun, [facility] [place] [facility] [address] [id number] [place] [address] Jun, [facility] [place] [facility] [address] [id number] [place] [address] Jun, [facility] [place] [facility] [address] [id number] [place] [address] Jun, [facility] [place] [facility] [address] [id number] [place] [address] Jun, [facility] [place] [facility] [address] [id number] [place] [address] Jun, [facility] [place] [facility] [address] [id number] [place] [address] Jun, [facility] [place] [facility] [address] [id number] [place] [address] Jun, [facility] [place] [facility] [address] [id number] [place] [address] Jun, [facility] [place] [facility] [address] [id number] [place] [address] Jun, [facility] [place] [facility] [address] [id number] [place] [address] Jun, [facility] [place] [facility] [address] [id number] [place] [address] May, [facility] [place] [facility] [address] [id number] [place] [address] May, [facility] [place] [facility] [address] [id number] [place] [address] May, [facility] [place] [facility] [address] [id number] [place] [address] May, [facility] [place] [facility] [address] [id number] [place] [address] May, [facility] [place] [facility] [address] [id number] [place] [address] May, [facility] [place] [facility] [address] [id number] [place] [address] May, [facility] [address] [id number] [place] [address] May, [facility] [address] [id number] [place] [address] May, [facility] [address] [id number] [place] [address] May, [facility] [address] [id number] [place] [address] May, [facility] [address] [id number] [place] [address] May, [facility] [address] [id number] [place] [address] May, [facility] [address] [id number] [place] [address] Apr, [facility] [address] [id number] [place] [address] Apr, [facility] [address] [id number] [place] [address] Mar, [facility] [address] [id number] [place] [address] Mar, [facility] [address] [id number] [place] [address] 24 Feb, 2013 [facility] [address] [id number] [place] [address] 23 Feb, 2013 [facility] [place] [facility] [address] [id number] [place] [address] 05 Feb, 2013 [facility] [place] [facility] [address] [id number] [place] [address] 04 Feb, 2013 [facility] [place] [facility] [address] [id number] [place] [address] Jan, [facility] [place] [facility] [address] [id number] [place] [address] Jan, [facility] [place] [facility] [address] [id number] [place] [address] Jan, [facility] [place] [facility] [address] [id number] [place] [address] Jan, [facility] [place] [facility] [address] [id number] [place] [address] Jan, [facility] [place] [facility] [address] [id number] [place] [address] Jan, [facility] [place] [facility] [address] [id number] [place] [address] Dec, [facility] [place] [facility] [address] [id number] [place] [address] Dec, [facility] [place] [facility] [address] [id number] [place] [address] Dec, [facility] [place] [facility] [address] [id number] [place] [address] Dec, [facility] [place] [facility] [address] [id number] [place] [address] Nov, [facility] [place] [facility] [address] [id number] [place] [address] October, [facility] [place] [facility] [address] [id number] [place] [address] October, [facility] [place] [facility] [address] [id number] [place] [address] October, [facility] [place] [facility] [address] [id number] [place] [address] Sep, [facility] [place] [facility] [address] [id number] [place] [address] Sep, [facility] [place] [facility] [address] [id number] [address] Jun, [facility] [place] [facility] [address] [id number] [place] [address] Jun, [facility] [place] [facility] [address] [facility] [id number] [place] [address] Jun, [facility] [place] [facility] [id number] [place] [address] Apr, [facility] [place] [facility] [address] [id number] [place] [address] Apr, [facility] [place] [facility] [address] [id number] [place] [address], [place] [address] Apr, [facility] [place] [facility] [address] [facility] [id number] [place] [address] Apr, [facility] [place] [facility] [id number] [place] [address], [place] [address] Mar, [facility] [place] [facility] [address] [id number] [place] [address] Mar, [facility] [place] [facility] [address] [id number] [place] [address] Mar, [facility] [place] [facility] [address] [id number] [place] [address] Mar, [facility] [place] [facility] [address] [facility] [id number] [place] [address] 29 Feb, 2012 [facility] [place] [facility] [address] [id number] [address] 27 Feb, 2012 [facility] [place] [facility] [address] [id number] [place] [address] 20 Feb, 2012 [facility] [place] [facility] [address] [facility] [id number] [place] [address] 30 Jan, 2012 [facility] [place] [facility] [address] [id number] [place] [address] 16 Jan, 2012 [facility] [place] [facility] [address] [id number] [place] [address] Jan, [facility] [place] [facility] [address] [id number] [place] [address] Jan, [facility] [place] [facility] [address] [id number] [place] [address] Dec, [facility] [place] [facility] [address] [id number] [place] [address] Dec, [facility] [place] [facility] [address] [id number] [place] [address] Nov, [facility] [place] [facility] [address] [id number] [place] [address] Nov, [facility] [place] [facility] [address] [id number] [place] [address] October, [facility] [place] [facility] [address] [id number] [place] [address] October, [facility] [place] [facility] [address] [id number] [place] [address] October, [facility] [place] [facility] [address] [id number] [place] [address] Sep, [facility] [place] [facility] [address] [id number] [place] [address] Sep, [facility] [place] [facility] [address] [id number] [place] [address] Sep, [facility] [place] [facility] [address] [id number] [place] [address] Aug, [facility] [place] [facility] [address] [id number] [place] [address] Aug, [facility] [place] [facility] [address] [id number] [place] [address] Aug, [facility] [place] [facility] [address] [id number] [place] [address] 15 Aug, 2011 [facility] [address] [id number] [place] [address] 07 Aug, 2011 [facility] [place] [facility] [address] [id number] [place] [address] Jul, [facility] [place] [facility] [address] [facility] [id number] [place] [address] 16 Jul, 2011 [facility] [place] [facility] [address] [id number] [place] [address] Jul, [facility] [place] [facility] [address] [id number] [place] [address] Jul, [facility] [place] [facility] [address] [facility] [id number] [place] [address] Jul, [facility] [address] [facility] [id number] [place] [address] Jul, [facility] [place] [facility] [address] [facility] [id number] [place] [address] Jul, [facility] [place] [facility] [address] [facility] [id number] [place] [address] Jul, [facility] [place] [facility] [address] [facility] [id number] [place] [address] Jun, [facility] [place] [facility] [address] [facility] [id number] [place] [address] Jun, [facility] [place] [facility] [address] [facility] [id number] [place] [address] May, [facility] [place] [facility] [address] [facility] [id number] [place] [address] May, [facility] [place] [facility] [address] [facility] [id number] [place] [address] May, [facility] [place] [facility] [address] [facility] [id number] [place] [address] May, [facility] [place] [facility] [address] [id number] [place] [address] 30 Apr, 2011 [facility] [place] [facility] [address] [id number] [place] [address] Apr, [facility] [place] [facility] [address] [id number] [place] [address] Apr, [facility] [place] [facility] [address] [id number] [place] [address] Mar, [facility] [place] [facility] [address] [id number] [place] [address] Mar, [facility] [place] [facility] [address] [id number] [place] [address] Mar, [facility] [place] [facility] [address] [id number] [place] [address] Mar, [facility] [place] [facility] [address] [id number] [place] [address] Dec, [facility] [place] [facility] [address] [id number] [place] [address] October, [facility] [place] [facility] [address] [id number] [place] [address] May, [facility] [place] [facility] [address] [id number] [place] [address] 13 May, 2010 [facility] [place] [facility] [address] [id number] [place] [address] 13 May, 2010 [facility] [place] [facility] [address] [id number] [place] [address] 06 May, 2010 [facility] [place] [facility] [address] [id number] [place] [address] Mar, [facility] [place] [facility] [address] [id number] [place] [address] 25 Mar, 2010 [facility] [place] [facility] [address] [id number] [place] [address] May, [facility] [address] [facility] [id number] [address] May, [facility] [address] [facility] [id number] [place] [address] May, [facility] [address] [facility] [id number] [place] [address] May, [facility] [id number] [address] Apr, [facility] [address] [facility] [id number] [place] [address] Apr, [facility] [address] [facility] [id number] [place] [address] October, IMMUNIZATIONS No Known Immunizations SOCIAL HISTORY Never Assessed REASON FOR VISIT EMR-[facility] [place] PLAN OF CARE VITAL SIGNS MEDICATIONS Medication Instructions Dosage Frequency Start Date End Date Duration Status Requip 0.5 mg 1 tablet by Oral route 1 time per day at 29 May, 2014 Active Budesonide 0.25 mg/2 mL inhale 2 milliliters (0.25 mg) by nebulization route 2 times per day Mar, Active PredniSONE 10 mg take 2 tablets by Oral route 1 time per day for 4 daysThen 1 tab daily for 4 days. 15 Aug, 2011 Active Magnesium Gluconate 29.25 mg (500 mg) 1 tablet by Oral route 2 times per day Mar, Active Singulair 10 mg take 1 tablet by Oral route in the evening 1 time per day Feb, Active PredniSONE 20 mg 2 tablet by Oral route 1 time per day for 5 day(s) Aug, Active Oxybutynin Chloride 5 mg 1 tablet by Oral route 2 times per day Apr, Active Symbicort 160-4.5 mcg/actuation inhale 2 puffs by inhalation route 2 times per day in the morning and evening Aug, Active Bactroban 2 % 1 sudhir by Topical route 2 times per day for 7 day(s) put in each nare twice a day for all people in the household Jun, Active Bactrim DS 800-160 mg 1 tablet by Oral route 2 times per day for 10 day(s) Jun, Active EPINEPHrine 0.3 mg/0.3 mL (1:1,000) 0.3 mg by Intramuscular route 1 time per day PRN Sep, Active Simvastatin 40 mg 1 tablet by Oral route 1 time per day Apr, Active Macrodantin 100 mg 1 capsule by Oral route 2 times per day for 5 days Dec, Active Combivent Respimat 20-100 mcg/actuation inhale 1 puff and PRN by Inhalation route not to exceed 6 puffs in 24hrs 4 times per day Dec, Active Zithromax Z-Mihir 250 mg 2 tablet by Oral route 1 time per day for 1 days then take 1 tab daily on days 2-5 May, Active quinapril 20 mg 1 tablet by Oral route 1 time per day for 30 day(s) Dec, Active Estradiol 0.5 mg take 1 tablet (0.5 mg) by oral route once daily Feb, Active Triamcinolone Acetonide 0.1 % 1 Ointment by Topical route 2 times per day PRN apply thin layer to affected area BID 60 gr Feb, Active HydrOXYzine HCl 50 mg 1 Tablet by Oral route 2 times per day for anxiety Dec, Active Azithromycin 250 mg 1 Capsule 1 time per day for 4 days Aug, Active Omeprazole 20 mg take 1 capsule (20 mg) by oral route once daily before a meal Apr, Active Brovana 15 mcg/2 mL inhale 2 milliliters (15 mcg) by inhalation route 2 times per day Mar, Active Lasix 40 mg 1 tablet by Oral route 1 time per day for 5 day Jul, Active RESULTS No Results PROCEDURES No Known [...]
--- OUTSIDE RECORDS SUMMARY | 2019-01-13 10:14 | XMS REPORT ---
Author Author Migration, Doctor Organization [facility] Address Unknown Phone Unavailable Care Team Providers Care Compliance Nurse Name Role Phone Migration, Doctor Unavailable Unavailable PROBLEMS Type Condition ICD9-CM Code JLZ15-DE Code Onset Dates Condition Status SNOMED Code Problem History of illicit drug use Z87.898 Active 058839686 Problem MRSA (methicillin resistant staph aureus) culture positive Z22.322 Active 227209585 Problem Snoring R06.83 Active 20231957 Problem Neuropathy G62.9 Active 090845369 Problem Essential hypertension I10 Active 13731309 Problem Fatigue R53.83 Active 65319596 Problem Panic disorder without agoraphobia F41.0 Active 52284068 Problem Upper respiratory tract infection, unspecified type J06.9 Active 77469478 Problem Varicose veins of both lower extremities I83.93 Active 15240721 Problem Other chronic pain G89.29 Active 30485032 Problem Mild persistent asthma without complication J45.30 Active 272088590 Problem On home oxygen therapy Z99.81 Active 465148144193 Problem Mild chronic obstructive pulmonary disease J44.9 Active 959473802 Problem Major depressive disorder, recurrent episode, moderate F33.1 Active 117174849 Problem 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 Active 85579369 Problem COPD exacerbation J44.1 Active 785826360 Problem Mood disorder F39 Active 39596664 Problem Dysthymic disorder F34.1 Active 89450461 Problem Psychotic disorder F29 Active 53205651 Problem Impaired circulation I99.9 Active 77493206 Problem Agoraphobia F40.00 Active 16179079 Problem COPD (chronic obstructive pulmonary disease) with chronic bronchitis J44.9 Active 380388797 Problem Exertional asthma J45.990 Active 48814013 Problem 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 115441904 Problem Arthritis M19.90 Active 6875627 ALLERGIES No Information ENCOUNTERS Encounter Location Date Diagnosis [facility] [address] [facility] [id number] [address] Nov, [facility] [id number] [address] Nov, [facility] [address] [address] Nov, [facility] [address] [address] October, [facility] [address] [address] October, Viral upper respiratory tract infection J06.9 [facility] [address] [address] October, [facility] [address] [address] October, Major depressive disorder, recurrent episode, moderate F33.1 and Panic disorder without agoraphobia F41.0 [facility] [address] [address] October, [facility] [address] [address] October, [facility] [address] [address] October, [facility] [address] [address] October, [facility] [address] [address] October, [facility] [id number] [address] October, [facility] [address] [address] October, Major depressive disorder, recurrent episode, moderate F33.1 and Panic disorder without agoraphobia F41.0 [facility] [address] [place] [address] Sep, Morbid obesity E66.01 and Lumbar neuritis M54.16 [place] [id number] [place] [address] Sep, Panic disorder without agoraphobia F41.0 and Major depressive disorder, recurrent episode, moderate F33.1 [facility] [id number] [place] [address] Sep, Gastroenteritis K52.9 ; Low back pain M54.5 ; Other chronic pain G89.29 and Morbid obesity E66.01 [place] [id number] [place] [address] Sep, Major depressive disorder, recurrent episode, moderate F33.1 ; Panic disorder without agoraphobia F41.0 and 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 [place] [id number] [place] [address] Sep, Panic disorder without agoraphobia F41.0 [place] [id number] [place] [address] Sep, Panic disorder without agoraphobia F41.0 [place] [id number] [place] [address] Aug, Panic disorder without agoraphobia F41.0 ; Major depressive disorder, recurrent episode, moderate F33.1 ; 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 ; Psychotic disorder F29 ; Tardive dyskinesia G24.01 and Morbid obesity E66.01 [place] [id number] [place] [address] Aug, Dysthymic disorder F34.1 and Psychotic disorder F29 [place] [address] [address] Aug, Encounter for Medicare annual wellness exam Z00.00 ; Morbid obesity E66.01 and 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89 ; BMI 45.0-49.9, adult Z68.42 ; COPD exacerbation J44.1 and Acute bronchitis J20.9 [place] [address] [address] Jun, [place] [address] [address] May, [place] [address] [address] May, Onychomycosis B35.1 and 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 [place] [address] [address] May, Low back pain M54.5 and Edema leg R60.0 [place] [address] [address] May, BMI 45.0-49.9, adult Z68.42 ; Well woman exam with routine gynecological exam Z01.419 and Breast cancer screening Z12.31 [place] [address] [address] 19 Apr, 2018 Arthritis M19.90 [place] [address] [address] 16 Apr, 2018 Arthritis M19.90 and Otalgia of both ears H92.03 [place] [address] [address] 28 Feb, 2018 [place] [address] [address] 28 Feb, 2018 Low back pain M54.5 ; Other chronic pain G89.29 ; Exertional asthma J45.990 and Encounter for immunization Z23 [place] [address] [address] Feb, Skin fissures R23.4 ; Neuropathy G62.9 and Onychomycosis B35.1 [place] [address] [address] 05 Feb, 2018 Dysthymic disorder F34.1 [place] [address] [address] 04 Feb, 2018 [place] [address] [address] Jan, [place] [address] [address] Jan, Abrasion of right elbow, initial encounter S50.311A ; Abrasion, right knee, initial encounter S80.211A and Sprain of other ligament of right ankle, initial encounter S93.491A [place] [address] [address] Jan, [facility] [address] [address] Jan, Injury of left ankle, initial encounter S99.912A ; Fall down stairs, initial encounter W10.8XXA and BMI 45.0-49.9, adult Z68.42 [place] [address] [address] Jan, COPD exacerbation J44.1 [place] [address] [address] Jan, Dysfunction of both eustachian 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 [place] [address] [address] Jan, Bronchitis J40 and Acute suppurative otitis media of left ear without spontaneous rupture of tympanic membrane, recurrence not specified H66.002 [place] [address] [address] Jan, [place] [address] [address] Jan, Bronchitis J40 and BMI 40.0-44.9, adult Z68.41 [place] [address] [address] Jan, [place] [address] [address] Dec, Gastric pain R10.9 [place] [address] [address] Dec, [place] [address] [address] Dec, History of illicit drug use Z87.898 ; Neuropathy G62.9 ; COPD (chronic obstructive pulmonary disease) with chronic bronchitis J44.9 and Acute pain of right knee M25.561 [place] [address] [address] Nov, [place] [address] [address] Nov, Onychomycosis B35.1 and Contusion of left foot, subsequent encounter S90.32XD [address] [address] 13 Nov, 2017 COPD exacerbation J44.1 [place] [id number] [place] [address] Sep, [address] [address] Sep, Dysthymic disorder F34.1 ; Tobacco abuse Z72.0 ; Pain in right knee M25.561 ; Pain in left knee M25.562 ; Other chronic pain G89.29 and BMI 40.0- 44.9, adult Z68.41 [place] [address] [address] Aug, Major depressive disorder, recurrent episode, moderate F33.1 and 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 [address] 14 Aug, 2017 Dysthymic disorder F34.1 ; Non-pressure chronic ulcer of left thigh, unspecified ulcer stage L97.129 ; Tobacco abuse Z72.0 ; Mild chronic obstructive pulmonary disease J44.9 and Forgetfulness R68.89 [place] [id number] [place] [address] Aug, Onychomycosis B35.1 ; Fissure in skin of foot R23.4 and Foot callus L84 [facility] [address] [place] [id number] [place] [address] Jul, Right medial knee pain M25.561 ; Upper respiratory tract infection, unspecified type J06.9 and BMI 40.0-44.9, adult Z68.41 [facility] [place] [id number] [place] [address] 08 Jul, 2017 Nausea and vomiting, intractability of vomiting not specified, unspecified vomiting type R11.2 ; Left ear pain H92.02 and Gastric pain R10.9 [facility] [address] [address] Apr, Encounter for immunization Z23 [facility] [id number] [place] [address] Apr, Onychomycosis B35.1 ; Xerosis of skin L85.3 ; Neuropathy G62.9 and 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 [facility] [id number] [place] [address] Jan, Onychomycosis B35.1 and Neuropathy G62.9 [facility] [id number] [place] [address] Dec, [facility] [id number] [place] [address] Dec, [facility] [id number] [place] [address] Nov, [facility] [id number] [place] [address] Aug, [facility] [id number] [place] [address] Aug, [facility] [address] [address] Jul, [facility] [id number] [place] [address] Jul, [facility] [address] [address] Jul, Decubitus ulcer of left thigh, stage 2 L89.892 [facility] [address], [place] [address] Jul, Decubitus ulcer of left thigh, stage 2 L89.892 [facility] [id number] [address] 17 Jul, 2016 [facility] [id number] [place] [address] 15 Jul, 2016 Decubitus ulcer of left thigh, stage 2 L89.892 [facility] [address] [place] [address] 14 Jul, 2016 [facility] [id number] [place] [address] 13 Jul, 2016 Cellulitis of other specified site L03.818 ; Illicit drug use F19.90 and Decubitus ulcer of left thigh, stage 2 L89.892 [facility] [id number] [place] [address] 08 Jul, 2016 [facility] [id number] [place] [address] 06 Jul, 2016 Cellulitis of right breast N61.0 [facility] [id number] [place] [address] Jun, [facility] [id number] [place] [address] Jun, [facility] [address] [place] [address] Jun, Wheezing R06.2 and Arthralgia, unspecified joint M25.50 [facility] [id number] [place] [address] May, [facility] [address] [place] [address] May, [facility] [id number] [place] [address] May, [facility] [id number] [place] [address] May, Shortness of breath R06.02 [facility] [id number] [place] [address] 02 May, 2016 Onychomycosis B35.1 and Fissure in skin of foot R23.4 [facility] [id number] [place] [address] 28 Apr, 2016 [facility] [id number] [place] [address] 18 Apr, 2016 Dizziness R42 [facility] [id number] [place] [address] 14 Apr, 2016 Shortness of breath R06.02 ; Essential hypertension I10 ; Dizziness R42 and On home oxygen therapy Z99.81 [facility] [id number] [place] [address] 10 Apr, 2016 [place] [id number] [place] [address] 08 Apr, 2016 [facility] [id number] [place] [address] Apr, [facility] [id number] [place] [address] Apr, [facility] [id number] [place] [address] Apr, [facility] [id number] [place] [address] Apr, [facility] [id number] [place] [address] Apr, [facility] [id number] [place] [address] Mar, Mild chronic obstructive pulmonary disease J44.9 [facility] [id number] [place] [address] Mar, [facility] [id number] [place] [address] Mar, Epigastric pain R10.13 ; Low back pain M54.5 ; Other chronic pain G89.29 and Breast cancer screening Z12.39 [place] [id number] [place] [address] Mar, [place] [id number] [place] [address] Mar, [place] [address] [address] Feb, [place] [id number] [place] [address] Feb, [place] [id number] [place] [address] Feb, Fissure in skin of foot R23.4 and Onychomycosis B35.1 [place] [id number] [place] [address] Jan, Agoraphobia F40.00 [place] [id number] [place] [address] Dec, Agoraphobia F40.00 [place] [id number] [place] [address] Dec, Mild persistent asthma without complication J45.30 ; Dysthymic disorder F34.1 and Upper respiratory tract infection, unspecified type J06.9 [place] [id number] [place] [address] Nov, Agoraphobia F40.00 [place] [id number] [place] [address] October, Agoraphobia F40.00 [place] [id number] [place] [address] Sep, Panic disorder without agoraphobia F41.0 ; Agoraphobia F40.00 and Dysthymic disorder F34.1 [place] [address] [address] Sep, Panic attacks F41.0 [place] [id number] [place] [address] Sep, [place] [id number] [place] [address] Sep, Panic disorder without agoraphobia F41.0 ; Varicose veins of both lower extremities I83.93 and Fatigue R53.83 [place] [id number] [place] [address] 14 Sep, 2015 Fatigue R53.83 [place] [id number] [place] [address] Sep, [place] [id number] [place] [address] Aug, [place] [id number] [place] [address] Aug, [place] [id number] [place] [address] Aug, 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 [place] [id number] [place] [address] Aug, Panic disorder without agoraphobia F41.0 ; Agoraphobia F40.00 and Dysthymic disorder F34.1 [place] [id number] [place] [address] Aug, Shortness of breath R06.02 ; Panic attacks F41.0 ; COPD (chronic obstructive pulmonary disease) J44.9 ; Tobacco abuse Z72.0 ; Family history of diabetes mellitus Z83.3 and Weight gain R63.5 [place] [id number] [place] [address] Aug, [place] [id number] [place] [address] Jul, [facility] [id number] [place] [address] Jun, Onychomycosis B35.1 ; Neuropathy G62.9 and Impaired circulation I99.9 [facility] [id number] [place] [address] 09 Mar, 2015 Fissure in skin of foot R23.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 [place] [id number] [place] [address] 18 Feb, 2015 Family history of coronary arteriosclerosis V17.3 [place] [id number] [place] [address] 15 Feb, 2015 Allergic rhinitis due to pollen 477.0 ; Unspecified breast screening V76.10 ; Anxiety 300.00 and Family history of coronary arteriosclerosis V17.3 [place] [id number] [place] [address] Jan, [place] [id number] [place] [address] Dec, [place] [id number] [place] [address] Dec, Onychomycosis 110.1 and Skin fissures 709.8 [place] [id number] [place] [address] Sep, [place] [id number] [place] [address] Sep, [facility] [id number] [place] [address] Aug, [facility] [id number] [place] [address] Aug, [facility] [id number] [place] [address] Jul, [facility] [address] [id number] [place] [address] Jul, [facility] [place] [facility] [address] [id number] [place] [address] Jun, [facility] [place] [facility] [address] [id number] [place] [address] Jun, [facility] [place] [facility] [address] [id number] [place] [address] Jun, [facility] [place] [facility] [address] [id number] [place] [address] Jun, [facility] [place] [facility] [address] [id number] [place] [address] Jun, [facility] [place] [facility] [address] [id number] [place] [address] May, [facility] [place] [facility] [address] [id number] [place] [address] May, [facility] [place] [facility] [address] [id number] [place] [address] May, [facility] [place] [facility] [address] [id number] [place] [address] May, [facility] [place] [facility] [address] [id number] [place] [address] May, [facility] [place] [facility] [address] [id number] [place] [address] May, [facility] [place] [facility] [address] [id number] [place] [address] May, [facility] [place] [facility] [address] [id number] [place] [address] May, [facility] [place] [facility] [address] [id number] [place] [address] Apr, [facility] [place] [facility] [address] [id number] [place] [address] Apr, [facility] [place] [facility] [address] [id number] [place] [address] Apr, [facility] [place] [facility] [address] [id number] [place] [address] Apr, [facility] [place] [facility] [address] [id number] [place] [address] Apr, [facility] [place] [facility] [address] [id number] [place] [address] Apr, [facility] [place] [facility] [address] [id number] [place] [address] Apr, [facility] [place] [facility] [address] [id number] [place] [address] Apr, [facility] [place] [facility] [address] [id number] [place] [address] Apr, [facility] [place] [facility] [address] [id number] [place] [address] Apr, [facility] [place] [facility] [address] [id number] [place] [address] Mar, [facility] [place] [facility] [address] [id number] [place] [address] Mar, [facility] [place] [facility] [address] [id number] [place] [address] Mar, [facility] [place] [facility] [address] [id number] [place] [address] Mar, [facility] [place] [facility] [address] [id number] [place] [address] Mar, [facility] [place] [facility] [address] [id number] [place] [address] Mar, [facility] [place] [facility] [address] [id number] [place] [address] Mar, [facility] [place] [facility] [address] [id number] [place] [address] Mar, [facility] [place] [facility] [address] [id number] [place] [address] 24 Mar, 2014 [facility] [place] [facility] [address] [id number] [place] [address] Mar, [facility] [place] [facility] [address] [id number] [place] [address] Mar, [facility] [place] [facility] [address] [id number] [place] [address] Mar, [facility] [place] [facility] [address] [id number] [place] [address] Mar, [facility] [place] [facility] [address] [id number] [place] [address] Mar, [facility] [place] [facility] [address] [id number] [place] [address] Mar, [facility] [place] [facility] [address] [id number] [place] [address] Mar, [facility] [place] [facility] [address] [id number] [place] [address] Mar, [facility] [place] [facility] [address] [id number] [place] [address] 16 Mar, 2014 [facility] [place] [facility] [address] [id number] [address] 16 Mar, 2014 [facility] [place] [facility] [address] [id number] [place] [address] 15 Mar, 2014 [facility] [place] [facility] [address] [id number] [place] [address] 14 Mar, 2014 [facility] [place] [facility] [address] [id number] [place] [address] 14 Mar, 2014 [facility] [place] [facility] [address] [id number] [place] [address] 14 Mar, 2013 [facility] [place] [facility] [address] [id number] [place] [address] 14 Mar, 2013 [facility] [place] [facility] [address] [id number] [place] [address] 09 Mar, 2013 [facility] [place] [facility] [address] [id number] [place] [address] 09 Mar, 2013 [facility] [place] [facility] [address] [id number] [place] [address] 09 Mar, 2013 [facility] [place] [facility] [address] [id number] [place] [address] 09 Mar, 2013 [facility] [place] [facility] [address] [id number] [place] [address] 30 Sep, 2013 [facility] [place] [facility] [address] [id number] [place] [address] 30 Sep, 2013 [facility] [place] [facility] [address] [id number] [place] [address] 30 Sep, 2013 [facility] [place] [facility] [address] [id number] [place] [address] 30 Sep, 2013 [facility] [place] [facility] [address] [id number] [place] [address] 26 Sep, 2013 [facility] [place] [facility] [address] [id number] [place] [address] 26 Sep, 2013 [facility] [place] [facility] [address] [id number] [address] 09 Sep, 2013 [facility] [place] [facility] [address] [id number] [place] [address] 09 Sep, 2013 [facility] [place] [facility] [address] [id number][place] [address] 03 Sep, 2013 [facility] [place] [facility] [address] [id number], [place] [address] 03 Sep, 2013 [facility] [place] [facility] [address] [id number] [place] [address] Feb, [facility] [place] [facility] [address] [id number] [place] [address] Feb, [facility] [place] [facility] [address] [id number] [place] [address] Jan, [facility] [place] [facility] [address] [id number] [place] [address] Jan, [facility] [place] [facility] [address] [id number] [place] [address] Jan, [facility] [place] [facility] [address] [id number] [place] [address] Jan, [facility] [place] [facility] [address] [id number] [place] [address] Jan, [facility] [place] [facility] [address] [id number] [place] [address] Jan, [facility] [place] [facility] [address] [id number] [place] [address] Jan, [facility] [place] [facility] [address] [id number] [place] [address] Jan, [facility] [place] [facility] [address] [id number] [place] [address] Jan, [facility] [place] [facility] [address] [id number] [place] [address] Jan, [facility] [place] [facility] [address] [id number] [place] [address] Jan, [facility] [place] [facility] [address] [id number] [place] [address] Jan, [facility] [place] [facility] [address] [id number] [place] [address] Jan, [facility] [place] [facility] [address] [id number] [place] [address] Dec, 2013 [facility] [place] [facility] [address] [id number] [place] [address] Dec, [facility] [place] [facility] [address] [id number] [place] [address] Dec, [facility] [place] [facility] [address] [id number] [place] [address] Dec, [facility] [place] [facility] [address] [id number] [place] [address] Dec, [facility] [place] [facility] [address] [id number] [place] [address] Dec, [facility] [place] [facility] [address] [id number] [place] [address] Dec, [facility] [place] [facility] [address] [id number] [place] [address] Dec, [facility] [place] [facility] [address] [id number] [place] [address] Dec, [facility] [place] [facility] [address] [id number] [place] [address] Dec, [facility] [place] [facility] [address] [id number] [place] [address] Dec, [facility] [place] [facility] [address] [id number] [place] [address] Dec, [facility] [place] [facility] [address] [id number] [place] [address] Dec, 2013 [facility] [place] [facility] [address] [id number] [place] [address] Dec, 2013 [facility] [place] [facility] [address] [id number] [place] [address] Dec, 2013 [facility] [place] [facility] [address] [id number] [place] [address] Dec, 2013 [facility] [place] [facility] [address] [id number] [place] [address] 08 Dec, 2013 [facility] [place] [facility] [address] [id number] [place] [address] Dec, [facility] [place] [facility] [address] [id number] [place] [address] Nov, [facility] [place] [facility] [address] [id number] [place] [address] Nov, [facility] [place] [facility] [address] [id number] [place] [address] Nov, [facility] [place] [facility] [address] [id number] [place] [address] Nov, [facility] [place] [facility] [address] [id number] [place] [address] Nov, [facility] [place] [facility] [address] [id number] [place] [address] Nov, [facility] [place] [facility] [address] [id number] [place] [address] Nov, [facility] [place] [facility] [address] [id number] [place] [address] Nov, [facility] [place] [facility] [address] [id number] [place] [address] Nov, [facility] [place] [facility] [address] [id number] [place] [address] Nov, [facility] [place] [facility] [address] [id number] [place] [address] Nov, [facility] [place] [facility] [address] [id number] [place] [address] Nov, [facility] [place] [facility] [address] [id number] [place] [address] Nov, [facility] [place] [facility] [address] [id number] [place] [address] Nov, [facility] [place] [facility] [address] [id number] [place] [address] Nov, [facility] [place] [facility] [address] [id number] [place] [address] Nov, [facility] [place] [facility] [address] [id number] [place] [address] Nov, [facility] [place] [facility] [address] [id number] [place] [address] Nov, [facility] [place] [facility] [address] [id number] [place] [address] Nov, [facility] [place] [facility] [address] [id number] [place] [address] Nov, [facility] [place] [facility] [address] [id number] [place] [address] October, [facility] [place] [facility] [address] [id number] [place] [address] October, [facility] [place] [facility] [address] [id number] [place] [address] October, [facility] [place] [facility] [address] [id number] [place] [address] October, [facility] [place] [facility] [address] [id number] [place] [address] Sep, [facility] [place] [facility] [address] [id number] [place] [address] Sep, [facility] [place] [facility] [address] [id number] [place] [address] Sep, [facility] [place] [facility] [address] [id number] [place] [address] Sep, [facility] [place] [facility] [address] [id number] [place] [address] Sep, [facility] [place] [facility] [address] [id number] [place] [address] Sep, [facility] [place] [facility] [address] [id number] [place] [address] Sep, [facility] [place] [facility] [address] [id number] [place] [address] Sep, [facility] [place] [facility] [address] [id number] [place] [address] Sep, [facility] [place] [facility] [address] [id number] [place] [address] Aug, [facility] [place] [facility] [address] [id number] [place] [address] Aug, [facility] [place] [facility] [address] [id number] [place] [address] Aug, [facility] [place] [facility] [address] [id number] [place] [address] Aug, [facility] [place] [facility] [address] [id number] [place] [address] Aug, [facility] [place] [facility] [address] [id number] [place] [address] Aug, [facility] [place] [facility] [address] [id number] [place] [address] Aug, [facility] [place] [facility] [address] [id number] [place] [address] Aug, [facility] [place] [facility] [address] [id number] [place] [address] Jul, [facility] [place] [facility] [address] [id number] [place] [address] Jul, [facility] [place] [facility] [address] [id number] [place] [address] Jun, [facility] [place] [facility] [address] [id number] [place] [address] Jun, [facility] [place] [facility] [address] [id number] [place] [address] Jun, [facility] [place] [facility] [address] [id number] [place] [address] Jun, [facility] [place] [facility] [address] [id number] [place] [address] Jun, [facility] [place] [facility] [address] [id number] [place] [address] Jun, [facility] [place] [facility] [address] [id number] [place] [address] Jun, [facility] [place] [facility] [address] [id number] [place] [address] Jun, [facility] [place] [facility] [address] [id number] [place] [address] Jun, [facility] [place] [facility] [address] [id number] [place] [address] Jun, [facility] [place] [facility] [address] [id number] [place] [address] Jun, [facility] [place] [facility] [address] [id number] [place] [address] Jun, [facility] [place] [facility] [address] [id number] [place] [address] May, [facility] [place] [facility] [address] [id number] [place] [address] May, [facility] [place] [facility] [address] [id number] [place] [address] May, [facility] [place] [facility] [address] [id number] [place] [address] May, [facility] [place] [facility] [address] [id number] [place] [address] May, [facility] [place] [facility] [address] [id number] [place] [address] May, [facility] [place] [facility] [address] [id number] [place] [address] May, [facility] [place] [facility] [address] [id number] [place] [address] May, [facility] [place] [facility] [address] [id number] [place] [address] May, [facility] [place] [facility] [address] [id number] [place] [address] May, [facility] [place] [facility] [address] [id number] [place] [address] May, [facility] [place] [facility] [address] [id number] [place] [address] May, [facility] [place] [facility] [address] [id number] [place] [address] May, [facility] [place] [facility] [address] [id number] [place] [address] Apr, [facility] [place] [facility] [address] [id number] [place] [address] Apr, [facility] [place] [facility] [address] [id number], [place] [address] Mar, [facility] [place] [facility] [address] [id number], [place] [address] Mar, [facility] [place] [facility] [address] [id number], [place] [address] 24 Feb, 2013 [facility] [place] [facility] [address] [id number] [place] [address] 23 Feb, 2013 [facility] [place] [facility] [address] [id number][place] [address] 05 Feb, 2013 [facility] [place] [facility] [address] [id number], [place] [address] 04 Feb, 2013 [facility] [place] [facility] [address] [id number] [place] [address] Jan, [facility] [address] [id number] [place] [address] Jan, [facility] [place] [facility] [address] [id number] [place] [address] Jan, [facility] [place] [facility] [address] [id number] [place] [address] Jan, [facility] [place] [facility] [address] [id number] [place] [address] Jan, [facility] [place] [facility] [address] [id number] [place] [address] Jan, [facility] [place] [facility] [address] [id number] [place] [address] Dec, [facility] [address] [id number] [place] [address] Dec, [facility] [place] [facility] [address] [id number] [place] [address] Dec, [facility] [place] [facility] [address] [id number] [place] [address] Dec, [facility] [place] [facility] [address] [id number] [place] [address] Nov, [facility] [place] [facility] [address] [id number] [place] [address] October, [facility] [place] [facility] [address] [id number] [place] [address] October, [facility] [place] [facility] [address] [id number] [place] [address] October, [facility] [place] [facility] [address] [id number] [place] [address] Sep, [facility] [place] [facility] [address] [id number] [place] [address] Sep, [facility] [place] [facility] [address] [id number] [place] [address] Jun, [facility] [place] [facility] [address] [id number] [place] [address] Jun, [facility] [place] [facility] [address] [id number] [place] [address] Jun, [facility] [place] [facility] [address] [id number] [place] [address], [place] [address] Apr, [facility] [place] [facility] [address] [id number] [place] [address] Apr, [facility] [place] [facility] [address] [id number] [place] [address] Apr, [facility] [place] [facility] [address] [id number] [place] [address] Apr, [facility] [place] [facility] [address] [id number] [place] [address] Mar, [facility] [place] [facility] [address] [id number] [place] [address] Mar, [facility] [place] [facility] [address] [id number] [place] [address] Mar, [facility] [place] [facility] [address] [id number] [place] [address] Mar, [facility] [place] [facility] [address] [id number] [place] [address] 29 Feb, 2012 [facility] [place] [facility] [address] [id number] [place] [address] 27 Feb, 2012 [facility] [place] [facility] [address] [id number] [place] [address] 20 Feb, 2012 [facility] [place] [facility] [address] [id number] [place] [address] 30 Jan, 2012 [facility] [place] [facility] [address] [id number] [place] [address] Jan, [facility] [place] [facility] [address] [id number] [place] [address] Jan, [facility] [place] [facility] [address] [id number] [place] [address] Jan, [facility] [place] [facility] [address] [id number] [place] [address] Dec, [facility] [place] [facility] [address] [id number] [place] [address] Dec, [facility] [place] [facility] [address] [id number] [place] [address] Nov, [facility] [place] [facility] [address] [id number] [place] [address] Nov, [facility] [place] [facility] [address] [id number] [place] [address] October, [facility] [place] [facility] [address] [id number] [place] [address] October, [facility] [place] [facility] [address] [id number] [place] [address] October, [facility] [place] [facility] [address] [id number] [place] [address] Sep, [facility] [place] [facility] [address] [id number] [place] [address] Sep, [facility] [place] [facility] [address] [id number] [place] [address] Sep, [facility] [place] [facility] [address] [id number] [place] [address] Aug, [facility] [place] [facility] [address] [id number] [place] [address] Aug, [facility] [place] [facility] [address] [id number] [place] [address] Aug, [facility] [place] [facility] [address] [id number] [place] [address] 15 Aug, 2011 [facility] [address] [id number] [place] [address] Aug, [facility] [place] [facility] [address] [id number] [place] [address] 23 Jul, 2011 [facility] [address] [id number] [place] [address] 16 Jul, 2011 [facility] [place] [facility] [address] [id number] [place] [address] 13 Jul, 2011 [facility] [place] [facility] [address] [id number] [place] [address] Jul, [facility] [place] [facility] [address] [id number] [place] [address] Jul, [facility] [place] [facility] [address] [id number] [place] [address] Jul, [facility] [address] [id number] [place] [address] Jul, [facility] [place] [facility] [address] [facility] [id number] [place] [address] Jul, [facility] [place] [facility] [address] [facility] [id number] [place] [address] Jun, [facility] [place] [facility] [address] [id number] [place] [address] Jun, [facility] [place] [facility] [address] [id number] [place] [address] May, [facility] [place] [facility] [address] [id number] [place] [address] May, [facility] [place] [facility] [address] [id number] [place] [address] May, [facility] [place] [facility] [address] [id number] [address] 08 May, 2011 [facility] [place] [facility] [address] [id number] [place] [address] 30 Apr, 2011 [facility] [place] [facility] [address] [id number] [place] [address] Apr, [facility] [place] [facility] [address] [id number] [place] [address] Apr, [facility] [place] [facility] [address] [id number] [place] [address] Mar, [facility] [place] [facility] [address] [id number] [place] [address] Mar, [facility] [place] [facility] [address] [id number] [place] [address] Mar, [facility] [place] [facility] [address] [id number] [place] [address] Mar, [facility] [place] [facility] [address] [id number] [place] [address] Dec, [facility] [place] [facility] [address] [id number] [place] [address] October, [facility] [place] [facility] [address] [id number] [place] [address] May, [facility] [place] [facility] [address] [id number] [address] May, [facility] [place] [facility] [address] [id number] [address] May, [facility] [place] [facility] [address] [id number] [place] [address] May, [facility] [place] [facility] [address] [id number] [place] [address] Mar, [facility] [place] [facility] [address] [id number] [place] [address] Mar, [facility] [place] [facility] [address] [id number] [address] May, [facility] [address] [id number] [address] May, [facility] [address] [id number] [address] May, [facility] [address] [id number] [address] May, [facility] [id number] [address] Apr, [facility] [id number] [address] Apr, [facility] [address] [id number] [address] October, IMMUNIZATIONS No Known Immunizations SOCIAL HISTORY Never Assessed [place] [place] VITAL SIGNS MEDICATIONS Unknown [...]
--- OUTSIDE RECORDS SUMMARY | 2019-01-13 10:15 | XMS REPORT ---
Author Author Migration, Doctor Organization [facility] Address Unknown Phone Unavailable Care Team Providers Care Gear Straightener Name Role Phone Migration, Doctor Unavailable Unavailable PROBLEMS Type Condition ICD9-CM Code XLO87-EF Code Onset Dates Condition Status SNOMED Code Problem History of illicit drug use Z87.898 Active 206265146 Problem MRSA (methicillin resistant staph aureus) culture positive Z22.322 Active 584568048 Problem Snoring R06.83 Active 80758517 Problem Neuropathy G62.9 Active 060574867 Problem Essential hypertension I10 Active 29626529 Problem Fatigue R53.83 Active 08059674 Problem Panic disorder without agoraphobia F41.0 Active 29602151 Problem Upper respiratory tract infection, unspecified type J06.9 Active 98065299 Problem Varicose veins of both lower extremities I83.93 Active 00507233 Problem Other chronic pain G89.29 Active 78539829 Problem Mild persistent asthma without complication J45.30 Active 602950207 Problem On home oxygen therapy Z99.81 Active 205017053731 Problem Mild chronic obstructive pulmonary disease J44.9 Active 962063153 Problem Major depressive disorder, recurrent episode, moderate F33.1 Active 581940919 Problem 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 Active 79778677 Problem COPD exacerbation J44.1 Active 777691284 Problem Mood disorder F39 Active 61781879 Problem Dysthymic disorder F34.1 Active 64062898 Problem Psychotic disorder F29 Active 25848147 Problem Impaired circulation I99.9 Active 73045843 Problem Agoraphobia F40.00 Active 40001501 Problem COPD (chronic obstructive pulmonary disease) with chronic bronchitis J44.9 Active 048455654 Problem Exertional asthma J45.990 Active 55370364 Problem 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 337012294 Problem Arthritis M19.90 Active 9415906 ALLERGIES No Information ENCOUNTERS Encounter Location Date Diagnosis [facility] [address] [facility] [id number] [address] Nov, [facility] [address] [address] Nov, [facility] [address] [place] [id number] [place] [address] Nov, [facility] [id number] [place] [address] October, [facility] [id number] [place] [address] October, [facility] [id number] [place] [address] October, Major depressive disorder, recurrent episode, moderate F33.1 and Panic disorder without agoraphobia F41.0 [facility] [id number] [place] [address] October, [facility] [id number] [place] [address] October, [facility] [id number] [place] [address] October, [facility] [id number] [place] [address] October, [facility] [address] [address] October, [facility] [id number] [place] [address] October, [facility] [address] [address] October, Major depressive disorder, recurrent episode, moderate F33.1 and Panic disorder without agoraphobia F41.0 [facility] [address] [address] Sep, Morbid obesity E66.01 and Lumbar neuritis M54.16 [facility] [id number] [place] [address] Sep, Panic disorder without agoraphobia F41.0 and Major depressive disorder, recurrent episode, moderate F33.1 [facility] [id number] [place] [address] Sep, Gastroenteritis K52.9 ; Low back pain M54.5 ; Other chronic pain G89.29 and Morbid obesity E66.01 [place] [id number] [place] [address] Sep, Major depressive disorder, recurrent episode, moderate F33.1 ; Panic disorder without agoraphobia F41.0 and 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 [place] [id number] [place] [address] Sep, Panic disorder without agoraphobia F41.0 [place] [address] [id number] [place] [address] Sep, Panic disorder without agoraphobia F41.0 [place] [id number] [place] [address] Aug, Panic disorder without agoraphobia F41.0 ; Major depressive disorder, recurrent episode, moderate F33.1 ; 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 ; Psychotic disorder F29 ; Tardive dyskinesia G24.01 and Morbid obesity E66.01 [place] [id number] [place] [address] Aug, Dysthymic disorder F34.1 and Psychotic disorder F29 [place] [address] [id number] [place] [address] Aug, Encounter for Medicare annual wellness exam Z00.00 ; Morbid obesity E66.01 and 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 [place] [id number] [place] [address] Aug, Dysthymic disorder F34.1 and Psychotic disorder F29 [place] [address] [id number] [place] [address] Aug, Neuropathy G62.9 ; Onychomycosis B35.1 and Xerosis of skin L85.3 [place] [address] [address] Jul, [place] [address] [address] Jul, Mood disorder F39 ; Wheezing R06.2 ; Choking, initial encounter T17.308A and Coughing R05 [place] [address] [address] Jul, Low back pain M54.5 [facility] [id number] [place] [address] Jun, Flu-like symptoms R68.89 ; BMI 45.0-49.9, adult Z68.42 ; COPD exacerbation J44.1 and Acute bronchitis J20.9 [place] [address] [address] Jun, [place] [address] [address] May, [place] [address] [address] May, Onychomycosis B35.1 and 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 [place] [address] [id number] [place] [address] May, Low back pain M54.5 and Edema leg R60.[address] [address] May, BMI 45.0-49.9, adult Z68.42 ; Well woman exam with routine gynecological exam Z01.419 and Breast cancer screening Z12.[address] [address] 19 Apr, 2018 Arthritis M19.90 [place] [address] [address] 16 Apr, 2018 Arthritis M19.90 and Otalgia of both ears H92.03 [place] [address] [address] 28 Feb, 2018 [place] [address] [address] 28 Feb, 2018 Low back pain M54.5 ; Other chronic pain G89.29 ; Exertional asthma J45.990 and Encounter for immunization Z23 [place] [address] [address] 21 Feb, 2018 Skin fissures R23.4 ; Neuropathy G62.9 and Onychomycosis B35.1 [place] [address] [address] 05 Feb, 2018 Dysthymic disorder F34.1 [place] [address] [address] 04 Feb, 2018 [place] [address] [address] Jan, [place] [address] [address] Jan, Abrasion of right elbow, initial encounter S50.311A ; Abrasion, right knee, initial encounter S80.211A and Sprain of other ligament of right ankle, initial encounter S93.491A [place] [address] [address] Jan, [facility] [address] [address] Jan, Injury of left ankle, initial encounter S99.912A ; Fall down stairs, initial encounter W10.8XXA and BMI 45.0-49.9, adult Z68.42 [place] [address] [place] [id number] [place] [address] Jan, COPD exacerbation J44.1 [place] [address] [address] Jan, Dysfunction of both eustachian 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 [place] [address] [address] 08 Jan, 2018 Bronchitis J40 and Acute suppurative otitis media of left ear without spontaneous rupture of tympanic membrane, recurrence not specified H66.002 [place] [address] [address] Jan, [place] [address] [address] Jan, Bronchitis J40 and BMI 40.0-44.9, adult Z68.41 [place] [address] [address] Jan, [place] [address] [address] Dec, Gastric pain R10.9 [place] [address] [address] Dec, [place] [address] [address] Dec, History of illicit drug use Z87.898 ; Neuropathy G62.9 ; COPD (chronic obstructive pulmonary disease) with chronic bronchitis J44.9 and Acute pain of right knee M25.561 [place] [address] [address] Nov, [place] [address] [address] Nov, Onychomycosis B35.1 and Contusion of left foot, subsequent encounter S90.32XD [place] [address] [address] Nov, COPD exacerbation J44.1 [place] [address] [id number] [place] [address] Sep, [facility] [place] [id number] [place] [address] Sep, Dysthymic disorder F34.1 ; Tobacco abuse Z72.0 ; Pain in right knee M25.561 ; Pain in left knee M25.562 ; Other chronic pain G89.29 and BMI 40.0- 44.9, adult Z68.41 [place] [address] [id number] [place] [address] Aug, Major depressive disorder, recurrent episode, moderate F33.1 and 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 [place] [id number] [place] [address] 14 Aug, 2017 Dysthymic disorder F34.1 ; Non-pressure chronic ulcer of left thigh, unspecified ulcer stage L97.129 ; Tobacco abuse Z72.0 ; Mild chronic obstructive pulmonary disease J44.9 and Forgetfulness R68.89 [place] [id number] [place] [address] 09 Aug, 2017 Onychomycosis B35.1 ; Fissure in skin of foot R23.4 and Foot callus L84 [facility] [place] [id number] [place] [address] Jul, Right medial knee pain M25.561 ; Upper respiratory tract infection, unspecified type J06.9 and BMI 40.0-44.9, adult Z68.41 [facility] [place] [id number] [place] [address] 08 Jul, 2017 Nausea and vomiting, intractability of vomiting not specified, unspecified vomiting type R11.2 ; Left ear pain H92.02 and Gastric pain R10.9 [place] [id number] [place] [address] Apr, Encounter for immunization Z23 [facility] [address], [place] [address] Apr, Onychomycosis B35.1 ; Xerosis of skin L85.3 ; Neuropathy G62.9 and 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 [facility] [id number] [address] Jan, Onychomycosis B35.1 and Neuropathy G62.9 [facility] [id number] [place] [address] Dec, [facility] [id number] [place] [address] Dec, [facility] [id number] [place] [address] Nov, [facility] [id number] [place] [address] Aug, [facility] [address] [place] [address] Aug, [facility] [id number] [place] [address] Jul, [facility] [address], [place] [address] Jul, [facility] [address], [place] [address] Jul, Decubitus ulcer of left thigh, stage 2 L89.892 [facility] [address], [place] [address] Jul, Decubitus ulcer of left thigh, stage 2 L89.892 [facility] [address], [place] [address] Jul, [facility] [id number] [place] [address] 15 Jul, 2016 Decubitus ulcer of left thigh, stage 2 L89.892 [facility] [id number] [place] [address] 14 Jul, 2016 [facility] [id number] [place] [address] 13 Jul, 2016 Cellulitis of other specified site L03.818 ; Illicit drug use F19.90 and Decubitus ulcer of left thigh, stage 2 L89.892 [facility] [id number] [place] [address] 08 Jul, 2016 [facility] [address] [address] [id number] [place] [address] 06 Jul, 2016 Cellulitis of right breast N61.0 [facility] [address] [id number] [place] [address] Jun, [facility] [id number] [place] [address] Jun, [facility] [id number] [place] [address] Jun, Wheezing R06.2 and Arthralgia, unspecified joint M25.50 [facility] [id number] [place] [address] May, [facility] [id number] [place] [address] May, [facility] [address] [place] [address] May, [facility] [id number] [place] [address] May, Shortness of breath R06.02 [facility] [address] [place] [address] May, Onychomycosis B35.1 and Fissure in skin of foot R23.4 [facility] [address], [place] [address] 28 Apr, 2016 [facility] [id number] [place] [address] 18 Apr, 2016 Dizziness R42 [facility] [id number] [place] [address] 14 Apr, 2016 Shortness of breath R06.02 ; Essential hypertension I10 ; Dizziness R42 and On home oxygen therapy Z99.81 [facility] [id number] [address] 10 Apr, 2016 [facility] [id number] [place] [address] 08 Apr, 2016 [facility] [id number] [place] [address] Apr, [facility] [id number] [place] [address] Apr, [facility] [id number] [place] [address] Apr, [facility] [id number] [place] [address] Apr, [facility] [address] [address] Apr, [facility] [id number] [place] [address] Mar, Mild chronic obstructive pulmonary disease J44.9 [facility] [address] [place] [address] Mar, [facility] [id number] [place] [address] Mar, Epigastric pain R10.13 ; Low back pain M54.5 ; Other chronic pain G89.29 and Breast cancer screening Z12.39 [facility] [id number] [address] Mar, [facility] [address], [place] [address] Mar, [facility] [address], [place] [address] Feb, [facility] [address] [id number] [place] [address] Feb, [facility] [id number] [place] [address] Feb, Fissure in skin of foot R23.4 and Onychomycosis B35.1 [place] [address] [place] [address] Jan, Agoraphobia F40.00 [place] [address] [place] [address] Dec, Agoraphobia F40.00 [place] [address] [place] [address] Dec, Mild persistent asthma without complication J45.30 ; Dysthymic disorder F34.1 and Upper respiratory tract infection, unspecified type J06.9 [place] [address] [address] Nov, Agoraphobia F40.00 [place] [address] [place] [address] October, Agoraphobia F40.00 [facility] [address], [place] [address] Sep, Panic disorder without agoraphobia F41.0 ; Agoraphobia F40.00 and Dysthymic disorder F34.1 [facility] [address], [place] [address] Sep, Panic attacks F41.0 [place] [address], [place] [address] Sep, [place] [address] [place] [address] [id number] [place] [address] Sep, Panic disorder without agoraphobia F41.0 ; Varicose veins of both lower extremities I83.93 and Fatigue R53.83 [place] [address] [place] [address] [id number] [place] [address] Sep, Fatigue R53.83 [place] [address] [address] [id number] [place] [address] Sep, [place] [address] [address] [id number] [place] [address] Aug, [place] [address] [place] [id number] [place] [address] Aug, [place] [address] [address] [id number] [place] [address] Aug, 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 [place] [address] [place] [address] [id number] [place] [address] Aug, Panic disorder without agoraphobia F41.0 ; Agoraphobia F40.00 and Dysthymic disorder F34.1 [place] [address] [address] [id number] [place] [address] Aug, Shortness of breath R06.02 ; Panic attacks F41.0 ; COPD (chronic obstructive pulmonary disease) J44.9 ; Tobacco abuse Z72.0 ; Family history of diabetes mellitus Z83.3 and Weight gain R63.5 [place] [address] [address] [id number] [place] [address] Aug, [place] [address] [address] [id number] [place] [address] Jul, [place] [address] [place] [address] [id number] [place] [address] Jun, Onychomycosis B35.1 ; Neuropathy G62.9 and Impaired circulation I99.9 [place] [address] [address] [id number] [place] [address] Mar, Fissure in skin of foot R23.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 [place] [address] [id number] [place] [address] Feb, Family history of coronary arteriosclerosis V17.3 [place] [address] [place] [address] [id number] [place] [address] 15 Feb, 2015 Allergic rhinitis due to pollen 477.0 ; Unspecified breast screening V76.10 ; Anxiety 300.00 and Family history of coronary arteriosclerosis V17.3 [place] [address] [place] [id number] [place] [address] Jan, [place] [address] [address] Dec, [place] [address] [place] [id number] [place] [address] Dec, Onychomycosis 110.1 and Skin fissures 709.8 [place] [address] [place] [id number] [place] [address] Sep, [place] [address] [place] [id number] [place] [address] Sep, [place] [address] [place] [id number] [place] [address] Aug, [place] [address] [place] [id number] [place] [address] Aug, [facility] [address] [place] [id number] [place] [address] Jul, [place] [address] [place] [id number] [place] [address] Jul, [facility] [address] [id number] [place] [address] Jun, [facility] [place] [facility] [address] [id number] [place] [address] Jun, [facility] [place] [facility] [address] [id number] [place] [address] Jun, [facility] [place] [facility] [address] [id number] [place] [address] Jun, [facility] [place] [facility] [address] [id number] [place] [address] Jun, [facility] [place] [facility] [address] [id number] [place] [address] May, [facility] [place] [facility] [address] [id number] [place] [address] May, [facility] [place] [facility] [address] [id number] [place] [address] May, [facility] [place] [facility] [address] [id number] [place] [address] May, [facility] [place] [facility] [address] [id number] [place] [address] May, [facility] [place] [facility] [address] [id number] [place] [address] May, [facility] [place] [facility] [address] [id number], [place] [address] May, [facility] [place] [facility] [address] [id number] [place] [address] May, [facility] [place] [facility] [address] [id number] [place] [address] Apr, [facility] [place] [facility] [address] [id number] [address] Apr, [facility] [place] [facility] [address] [id number], [place] [address] Apr, [facility] [place] [facility] [address] [id number] [place] [address] Apr, [facility] [place] [facility] [address] [id number] [place] [address] Apr, [facility] [place] [facility] [address] [facility] [id number] [place] [address] Apr, [facility] [place] [facility] [address] [id number] [place] [address] Apr, [facility] [place] [facility] [address] [facility] [id number] [place] [address] Apr, [facility] [place] [facility] [address] [facility] [id number] [place] [address] Apr, [facility] [place] [facility] [address] [facility] [id number] [place] [address] Apr, [facility] [place] [facility] [address] [facility] [id number] [place] [address] Mar, [facility] [place] [facility] [address] [facility] [id number] [place] [address] Mar, [facility] [place] [facility] [address] [facility] [id number] [place] [address] Mar, [facility] [place] [facility] [address] [facility] [id number][place] [address] Mar, [facility] [place] [facility] [address] [facility] [id number], [place] [address] Mar, [facility] [place] [facility] [address] [id number], [place] [address] Mar, [facility] [place] [facility] [address] [facility] [id number], [place] [address] Mar, [facility] [place] [facility] [address] [facility] [id number], [place] [address] Mar, [facility] [place] [facility] [address] [id number] [place] [address] 24 Mar, 2013 [facility] [place] [facility] [address] [id number] [place] [address] 23 Mar, 2014 [facility] [place] [facility] [address] [id number] [place] [address] 23 Mar, 2014 [facility] [place] [facility] [address] [id number] [place] [address] 22 Mar, 2014 [facility] [place] [facility] [address] [id number] [place] [address] 22 Mar, 2013 [facility] [place] [facility] [address] [id number] [place] [address] 22 Mar, 2014 [facility] [place] [facility] [address] [id number] [place] [address] 22 Mar, 2014 [facility] [place] [facility] [address] [id number] [place] [address] 20 Mar, 2014 [facility] [place] [facility] [address] [id number] [place] [address] 20 Mar, 2014 [facility] [place] [facility] [address] [id number] [place] [address] 16 Mar, 2013 [facility] [place] [facility] [address] [id number] [place] [address] 16 Mar, 2014 [facility] [place] [facility] [address] [id number] [place] [address] 15 Mar, 2014 [facility] [place] [facility] [address] [id number] [place] [address] 14 Mar, 2014 [facility] [place] [facility] [address] [id number] [place] [address] 14 Mar, 2014 [facility] [place] [facility] [address] [id number] [place] [address] 14 Mar, 2014 [facility] [place] [facility] [address] [id number] [place] [address] 14 Mar, 2013 [facility] [place] [facility] [address] [id number] [place] [address] 09 Mar, 2013 [facility] [place] [facility] [address] [id number] [place] [address] Mar, 2013 [facility] [place] [facility] [address] [id number] [place] [address] Mar, 2013 [facility] [place] [facility] [address] [id number] [place] [address] Mar, 2013 [facility] [place] [facility] [address] [id number] [place] [address] 30 Sep, 2013 [facility] [place] [facility] [address] [id number] [place] [address] 30 Feb, 2013 [facility] [place] [facility] [address] [id number] [place] [address] 30 Feb, 2013 [facility] [place] [facility] [address] [id number] [place] [address] 30 Feb, 2013 [facility] [place] [facility] [address] [id number] [place] [address] Sep, 2013 [facility] [place] [facility] [address] [id number] [place] [address] Sep, 2013 [facility] [place] [facility] [address] [id number], [place] [address] Sep, 2013 [facility] [place] [facility] [address] [id number], [place] [address] Sep, 2013 [facility] [place] [facility] [address] [id number] [place] [address] Sep, 2013 [facility] [place] [facility] [address] [id number], [place] [address] Sep, 2013 [facility] [place] [facility] [address] [id number], [place] [address] Sep, 2013 [facility] [place] [facility] [address] [id number] [place] [address] Feb, [facility] [place] [facility] [address] [id number] [place] [address] Jan, [facility] [place] [facility] [address] [id number] [place] [address] Jan, [facility] [place] [facility] [address] [id number] [place] [address] Jan, [facility] [place] [facility] [address] [id number] [place] [address] Jan, [facility] [place] [facility] [address] [id number] [place] [address] Jan, [facility] [place] [facility] [address] [id number] [place] [address] Jan, [facility] [place] [facility] [address] [id number] [place] [address] Jan, [facility] [place] [facility] [address] [id number] [place] [address] Jan, [facility] [place] [facility] [address] [id number] [place] [address] Jan, [facility] [place] [facility] [address] [id number] [place] [address] Jan, [facility] [place] [facility] [address] [id number] [place] [address] Jan, [facility] [place] [facility] [address] [id number] [place] [address] Jan, [facility] [place] [facility] [address] [id number] [place] [address] Jan, [facility] [place] [facility] [address] [id number] [place] [address] Dec, [facility] [place] [facility] [address] [id number] [place] [address] Dec, [facility] [place] [facility] [address] [id number] [place] [address] Dec, 2013 [facility] [place] [facility] [address] [id number] [place] [address] Dec, [facility] [place] [facility] [address] [id number] [place] [address] Dec, [facility] [place] [facility] [address] [id number] [place] [address] Dec, [facility] [place] [facility] [address] [id number] [place] [address] Dec, [facility] [place] [facility] [address] [id number] [place] [address] Dec, [facility] [place] [facility] [address] [id number] [place] [address] Dec, [facility] [place] [facility] [address] [id number] [place] [address] Dec, [facility] [place] [facility] [address] [id number] [place] [address] Dec, [facility] [place] [facility] [address] [id number] [place] [address] Dec, [facility] [place] [facility] [address] [id number] [place] [address] Dec, [facility] [place] [facility] [address] [id number] [place] [address] Dec, [facility] [place] [facility] [address] [id number] [place] [address] Dec, [facility] [place] [facility] [address] [id number] [place] [address] Dec, [facility] [place] [facility] [address] [id number] [place] [address] Dec, [facility] [place] [facility] [address] [id number] [place] [address] Dec, [facility] [place] [facility] [address] [id number] [place] [address] Nov, [facility] [place] [facility] [address] [id number] [place] [address] Nov, [facility] [place] [facility] [address] [id number] [place] [address] Nov, [facility] [place] [facility] [address] [id number] [place] [address] Nov, [facility] [place] [facility] [address] [id number] [place] [address] Nov, [facility] [place] [facility] [address] [id number] [place] [address] Nov, [facility] [place] [facility] [address] [id number] [place] [address] Nov, [facility] [place] [facility] [address] [id number] [place] [address] Nov, [facility] [place] [facility] [address] [id number] [place] [address] Nov, [facility] [place] [facility] [address] [id number] [place] [address] Nov, [facility] [place] [facility] [address] [id number] [place] [address] Nov, [facility] [place] [facility] [address] [id number] [place] [address] Nov, [facility] [place] [facility] [address] [id number] [place] [address] Nov, [facility] [place] [facility] [address] [id number] [place] [address] Nov, [facility] [place] [facility] [address] [id number] [place] [address] Nov, [facility] [place] [facility] [address] [id number] [place] [address] Nov, [facility] [address] [id number] [place] [address] Nov, [facility] [place] [facility] [address] [id number] [place] [address] Nov, [facility] [address] [id number] [place] [address] Nov, [facility] [place] [facility] [address] [id number] [place] [address] Nov, [facility] [address] [id number] [place] [address] October, [facility] [place] [facility] [address] [id number] [place] [address] October, [facility] [place] [facility] [address] [id number] [place] [address] October, [facility] [address] [id number] [place] [address] October, [facility] [place] [facility] [address] [id number] [place] [address] Sep, [facility] [address] [id number] [place] [address] Sep, [facility] [place] [facility] [address] [id number] [place] [address] Sep, [facility] [place] [facility] [address] [id number] [place] [address] Sep, [facility] [place] [facility] [address] [id number] [place] [address] Sep, [facility] [place] [facility] [address] [id number] [place] [address] Sep, [facility] [place] [facility] [address] [id number] [place] [address] Sep, [facility] [place] [facility] [address] [id number] [place] [address] Sep, [facility] [place] [facility] [address] [id number] [place] [address] Sep, [facility] [place] [facility] [address] [id number] [place] [address] Aug, [facility] [place] [facility] [address] [id number] [place] [address] Aug, [facility] [place] [facility] [address] [id number] [place] [address] Aug, [facility] [place] [facility] [address] [id number] [place] [address] Aug, [facility] [place] [facility] [address] [id number] [place] [address] Aug, [facility] [place] [facility] [address] [id number] [place] [address] Aug, [facility] [place] [facility] [address] [id number] [place] [address] Aug, [facility] [place] [facility] [address] [id number] [place] [address] Aug, [facility] [place] [facility] [address] [id number] [place] [address] Jul, [facility] [place] [facility] [address] [id number] [place] [address] Jul, [facility] [place] [facility] [address] [id number] [place] [address] Jun, [facility] [place] [facility] [address] [id number] [place] [address] Jun, [facility] [place] [facility] [address] [id number] [place] [address] Jun, [facility] [place] [facility] [address] [id number] [place] [address] Jun, [facility] [address] [id number] [place] [address] Jun, [facility] [place] [facility] [address] [id number] [place] [address] Jun, [facility] [address] [id number] [place] [address] Jun, [facility] [place] [facility] [address] [id number] [place] [address] Jun, [facility] [address] [id number] [place] [address] Jun, [facility] [place] [facility] [address] [id number] [place] [address] Jun, [facility] [address] [id number] [place] [address] Jun, [facility] [address] [id number] [place] [address] Jun, [facility] [address] [id number] [place] [address] May, [facility] [place] [facility] [address] [id number] [place] [address] May, [facility] [place] [facility] [address] [id number] [place] [address] May, [facility] [place] [facility] [address] [id number] [place] [address] May, [facility] [place] [facility] [address] [id number] [place] [address] May, [facility] [place] [facility] [address] [id number] [place] [address] May, [facility] [place] [facility] [address] [id number] [place] [address] May, [facility] [place] [facility] [address] [id number] [place] [address] May, [facility] [place] [facility] [address] [id number] [place] [address] May, [facility] [place] [facility] [address] [id number] [place] [address] May, [facility] [place] [facility] [address] [id number] [place] [address] May, [facility] [place] [facility] [address] [id number] [place] [address] May, [facility] [place] [facility] [address] [id number] [place] [address] May, [facility] [place] [facility] [address] [id number] [place] [address] Apr, [facility] [place] [facility] [address] [id number] [place] [address] Apr, [facility] [place] [facility] [address] [id number] [place] [address] Mar, [facility] [place] [facility] [address] [id number] [place] [address] Mar, [facility] [place] [facility] [address] [id number] [place] [address] 24 Feb, 2013 [facility] [place] [facility] [address] [id number] [place] [address] 23 Feb, 2013 [facility] [place] [facility] [address] [id number] [place] [address] 05 Feb, 2013 [facility] [place] [facility] [address] [id number] [place] [address] 04 Feb, 2013 [facility] [place] [facility] [address] [id number] [place] [address] Jan, [facility] [place] [facility] [address] [id number] [place] [address] Jan, [facility] [address] [id number] [place] [address] Jan, [facility] [place] [facility] [address] [id number] [place] [address] Jan, [facility] [place] [facility] [address] [id number] [place] [address] Jan, [facility] [place] [facility] [address] [id number] [place] [address] Jan, [facility] [place] [facility] [address] [id number] [place] [address] Dec, [facility] [place] [facility] [address] [id number] [place] [address] Dec, [facility] [place] [facility] [address] [id number] [place] [address] Dec, [facility] [place] [facility] [address] [id number] [place] [address] Dec, [facility] [place] [facility] [address] [id number] [place] [address] Nov, [facility] [place] [facility] [address] [id number] [place] [address] October, [facility] [place] [facility] [address] [id number] [place] [address] October, [facility] [place] [facility] [address] [id number], [place] [address] October, [facility] [place] [facility] [address] [id number] [place] [address] Sep, [facility] [place] [facility] [address] [id number] [place] [address] Sep, [facility] [place] [facility] [address] [id number] [place] [address] Jun, [facility] [place] [facility] [address] [id number] [place] [address] Jun, [facility] [place] [facility] [address] [id number] [place] [address] Jun, [facility] [place] [facility] [address] [id number] [place] [address] Apr, [facility] [place] [facility] [address] [id number] [place] [address] Apr, [facility] [place] [facility] [address] [id number] [place] [address] Apr, [facility] [place] [facility] [address] [id number] [place] [address] Apr, [facility] [place] [facility] [address] [id number] [place] [address] Mar, [facility] [place] [facility] [address] [id number] [place] [address] Mar, [facility] [place] [facility] [address] [id number] [place] [address] Mar, [facility] [place] [facility] [address] [id number] [place] [address] Mar, [facility] [place] [facility] [address] [id number] [place] [address] 29 Feb, 2012 [facility] [place] [facility] [address] [id number] [place] [address] 27 Feb, 2012 [facility] [place] [facility] [address] [id number] [place] [address] 20 Feb, 2012 [facility] [place] [facility] [address] [id number] [place] [address] 30 Jan, 2012 [facility] [place] [facility] [address] [id number] [place] [address] 16 Jan, 2012 [facility] [place] [facility] [address] [id number] [place] [address] Jan, [facility] [place] [facility] [address] [id number] [place] [address] Jan, [facility] [address] [id number] [place] [address] Dec, [facility] [address] [id number] [place] [address] Dec, [facility] [address] [id number] [place] [address] Nov, [facility] [address] [id number] [place] [address] Nov, [facility] [address] [id number] [place] [address] October, [facility] [address] [id number] [place] [address] October, [facility] [address] [id number] [place] [address] October, [facility] [address] [id number] [place] [address] Sep, [facility] [address] [id number] [place] [address] Sep, [facility] [place] [facility] [address] [id number] [place] [address] Sep, [facility] [place] [facility] [address] [id number] [place] [address] Aug, [facility] [place] [facility] [address] [id number] [place] [address] Aug, [facility] [place] [facility] [address] [id number] [place] [address] Aug, [facility] [place] [facility] [address] [id number] [place] [address] Aug, [facility] [place] [facility] [address] [id number] [place] [address] Aug, [facility] [address] [id number] [place] [address] Jul, [facility] [place] [facility] [address] [id number] [place] [address] 16 Jul, 2011 [facility] [place] [facility] [address] [id number] [place] [address] Jul, [facility] [place] [facility] [address] [id number] [place] [address] Jul, [facility] [place] [facility] [address] [id number] [place] [address] Jul, [facility] [place] [facility] [address] [id number] [place] [address] 06 Jul, 2011 [facility] [address] [id number] [place] [address] Jul, [facility] [place] [facility] [address] [id number] [place] [address] Jul, [facility] [place] [facility] [address] [id number] [place] [address] Jun, [facility] [address] [id number] [place] [address] Jun, [facility] [address] [id number] [place] [address] May, [facility] [place] [facility] [address] [id number] [place] [address] May, [facility] [place] [facility] [address] [id number] [place] [address] May, [facility] [place] [facility] [address] [id number] [place] [address] May, [facility] [place] [facility] [address] [id number] [place] [address] Apr, [facility] [place] [facility] [address] [id number] [place] [address] Apr, [facility] [place] [facility] [address] [id number] [place] [address] Apr, [facility] [place] [facility] [address] [id number] [place] [address] Mar, [facility] [place] [facility] [address] [id number] [place] [address] Mar, [facility] [place] [facility] [address] [id number] [place] [address] Mar, [facility] [place] [facility] [address] [id number] [place] [address] Mar, [facility] [address] [id number] [place] [address] Dec, [facility] [address] [id number] [place] [address] October, [facility] [place] [facility] [address] [id number] [place] [address] May, [facility] [place] [facility] [address] [id number] [place] [address] May, [facility] [place] [facility] [address] [id number] [place] [address] May, [facility] [place] [facility] [address] [id number] [place] [address] 06 May, 2010 [facility] [place] [facility] [address] [id number] [place] [address] Mar, [facility] [place] [facility] [address] [id number] [place] [address] Mar, [facility] [place] [facility] [address] [id number] [place] [address] 31 May, 2009 [facility] [place] [facility] [address] [id number] [place] [address] May, [facility] [address] [facility] [id number], [place] [address] May, [facility] [address] [facility] [id number], [place] [address] May, [facility] [address] [facility] [id number], [place] [address] Apr, [facility] [address] [facility] [id number], [place] [address] Apr, [facility] [address] [facility] [id number], [place] [address] October, IMMUNIZATIONS No Known Immunizations SOCIAL HISTORY Never Assessed REASON FOR VISIT [facility] [place] VITAL SIGNS MEDICATIONS Unknown [...] Hospitalization History Surgeries only Hospitalization History hypotension, dizziness--[facility] 04/12/2016 Hospitalization History Colonoscopy 01/30/2014
--- OUTSIDE RECORDS SUMMARY | 2019-01-13 10:16 | XMS REPORT ---
Author Author Migration, Doctor Organization [facility] Address Unknown Phone Unavailable Care Team Providers Care Mission Systems Engineer Name Role Phone Migration, Doctor Unavailable Unavailable PROBLEMS Type Condition ICD9-CM Code URM97-[place] Code Onset Dates Condition Status SNOMED Code Problem History of illicit drug use Z87.898 Active 288044824 Problem MRSA (methicillin resistant staph aureus) culture positive Z22.322 Active 596374334 Problem Snoring R06.83 Active 97233638 Problem Neuropathy G62.9 Active 060517066 Problem Essential hypertension I10 Active 97481870 Problem Fatigue R53.83 Active 33098084 Problem Panic disorder without agoraphobia F41.0 Active 50726881 Problem Upper respiratory tract infection, unspecified type J06.9 Active 21495380 Problem Varicose veins of both lower extremities I83.93 Active 53782724 Problem Other chronic pain G89.29 Active 84529714 Problem Mild persistent asthma without complication J45.30 Active 831307232 Problem On home oxygen therapy Z99.81 Active 683728317073 Problem Mild chronic obstructive pulmonary disease J44.9 Active 237003986 Problem Major depressive disorder, recurrent episode, moderate F33.1 Active 654326548 Problem 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 Active 15264618 Problem COPD exacerbation J44.1 Active 888978853 Problem Mood disorder F39 Active 22306587 Problem Dysthymic disorder F34.1 Active 69899726 Problem Psychotic disorder F29 Active 11633493 Problem Impaired circulation I99.9 Active 34065869 Problem Agoraphobia F40.00 Active 37616724 Problem COPD (chronic obstructive pulmonary disease) with chronic bronchitis J44.9 Active 766704049 Problem Exertional asthma J45.990 Active 97194389 Problem 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 550327157 Problem Arthritis M19.90 Active 8058175 ALLERGIES No Information ENCOUNTERS Encounter Location Date Diagnosis [facility] [address] [facility] [id number] [address] Nov, [facility] [id number] [place] [address] Nov, [facility] [address] [place] [id number] [place] [address] October, [facility] [address] [place] [id number] [place] [address] October, [facility] [address] [place] [id number] [place] [address] October, Major depressive disorder, recurrent episode, moderate F33.1 and Panic disorder without agoraphobia F41.0 [facility] [address] [place] [id number] [place] [address] Sep, Morbid obesity E66.01 and Lumbar neuritis M54.16 [facility] [address] [place] [id number] [place] [address] Sep, Panic disorder without agoraphobia F41.0 and Major depressive disorder, recurrent episode, moderate F33.1 [facility] [address] [id number] [place] [address] Sep, Gastroenteritis K52.9 ; Low back pain M54.5 ; Other chronic pain G89.29 and Morbid obesity E66.01 [facility] [address] [place] [address] Sep, Major depressive disorder, recurrent episode, moderate F33.1 ; Panic disorder without agoraphobia F41.0 and 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 [facility] [address] [place] [address] Sep, Panic disorder without agoraphobia F41.0 [facility] [address] [place] [place] [id number] [place] [address] Sep, Panic disorder without agoraphobia F41.0 [facility] [address] [place] [id number] [place] [address] Aug, Panic disorder without agoraphobia F41.0 ; Major depressive disorder, recurrent episode, moderate F33.1 ; 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 ; Psychotic disorder F29 ; Tardive dyskinesia G24.01 and Morbid obesity E66.01 [place] [address] [address] Aug, Dysthymic disorder F34.1 and Psychotic disorder F29 [place] [address] [address] Aug, Encounter for Medicare annual wellness exam Z00.00 ; Morbid obesity E66.01 and 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 [place] [address] [address] Aug, Dysthymic disorder F34.1 and Psychotic disorder F29 [place] [address] [address] Aug, Neuropathy G62.9 ; Onychomycosis B35.1 and Xerosis of skin L85.[address] [address] Jul, [place] [address] [address] Jul, Mood disorder F39 ; Wheezing R06.2 ; Choking, initial encounter T17.308A and Coughing R05 [place] [address] [address] Jul, Low back pain M54.5 [facility] [address] [address] Jun, Flu-like symptoms R68.89 ; BMI 45.0-49.9, adult Z68.42 ; COPD exacerbation J44.1 and Acute bronchitis J20.[address] [address] Jun, [place] [address] [place] [id number] [place] [address] May, [place] [address] [address] May, Onychomycosis B35.1 and 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 [place] [address] [address] May, Low back pain M54.5 and Edema leg R60.[address] [address] May, BMI 45.0-49.9, adult Z68.42 ; Well woman exam with routine gynecological exam Z01.419 and Breast cancer screening Z12.[address] [address] Apr, Arthritis M19.[address] [address] 16 Apr, 2018 Arthritis M19.90 and Otalgia of both ears H92.[address] [address] Feb, [place] [address] [address] Feb, Low back pain M54.5 ; Other chronic pain G89.29 ; Exertional asthma J45.990 and Encounter for immunization Z23 [place] [address] [address] Feb, Skin fissures R23.4 ; Neuropathy G62.9 and Onychomycosis B35.1 [place] [address] [address] 05 Feb, 2018 Dysthymic disorder F34.1 [place] [address] [address] Feb, [place] [address] [place] [id number] [place] [address] Jan, [place] [address] [address] Jan, Abrasion of right elbow, initial encounter S50.311A ; Abrasion, right knee, initial encounter S80.211A and Sprain of other ligament of right ankle, initial encounter S93.491A [place] [address] [address] Jan, [facility] [address] [address] Jan, Injury of left ankle, initial encounter S99.912A ; Fall down stairs, initial encounter W10.8XXA and BMI 45.0-49.9, adult Z68.42 [place] [address] [address] Jan, COPD exacerbation J44.1 [place] [address] [address] Jan, Dysfunction of both eustachian 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 [place] [address] [place] [id number] [place] [address] Jan, Bronchitis J40 and Acute suppurative otitis media of left ear without spontaneous rupture of tympanic membrane, recurrence not specified H66.002 [place] [address] [place] [id number] [place] [address] Jan, [place] [address] [address] 03 Jan, 2018 Bronchitis J40 and BMI 40.0-44.9, adult Z68.41 [place] [address] [place] [id number] [place] [address] Jan, [place] [address] [place] [id number] [place] [address] Dec, Gastric pain R10.9 [place] [address] [place] [id number] [place] [address] Dec, [place] [address] [place] [id number] [place] [address] Dec, History of illicit drug use Z87.898 ; Neuropathy G62.9 ; COPD (chronic obstructive pulmonary disease) with chronic bronchitis J44.9 and Acute pain of right knee M25.561 [place] [address] [place] [id number] [place] [address] Nov, [address] [address] Nov, Onychomycosis B35.1 and Contusion of left foot, subsequent encounter S90.32XD [address] [address] Nov, COPD exacerbation J44.1 [place] [address] [place] [id number] [place] [address] Sep, [address] [address] Sep, Dysthymic disorder F34.1 ; Tobacco abuse Z72.0 ; Pain in right knee M25.561 ; Pain in left knee M25.562 ; Other chronic pain G89.29 and BMI 40.0- 44.9, adult Z68.41 [place] [id number] [place] [address] Aug, Major depressive disorder, recurrent episode, moderate F33.1 and 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 [place] [id number] [place] [address] Aug, Dysthymic disorder F34.1 ; Non-pressure chronic ulcer of left thigh, unspecified ulcer stage L97.129 ; Tobacco abuse Z72.0 ; Mild chronic obstructive pulmonary disease J44.9 and Forgetfulness R68.[address] [place] [id number] [place] [address] Aug, Onychomycosis B35.1 ; Fissure in skin of foot R23.4 and Foot callus L84 [facility] [place] [address] [place] [id number] [place] [address] Jul, Right medial knee pain M25.561 ; Upper respiratory tract infection, unspecified type J06.9 and BMI 40.0-44.9, adult Z68.41 [facility] [address] [place] [id number] [place] [address] Jul, Nausea and vomiting, intractability of vomiting not specified, unspecified vomiting type R11.2 ; Left ear pain H92.02 and Gastric pain R10.9 [place] [address] [address] Apr, Encounter for immunization Z23 [place] [address] [address] Apr, Onychomycosis B35.1 ; Xerosis of skin L85.3 ; Neuropathy G62.9 and 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 [place] [address] [place] [id number] [place] [address] Jan, Onychomycosis B35.1 and Neuropathy G62.9 [place] [address] [place] [id number] [place] [address] Dec, [place] [address] [address] Dec, [place] [address] [address] Nov, [place] [address] [place] [id number] [place] [address] Aug, [place] [address] [address] Aug, [facility] [address] [address] Jul, [facility] [address] [address] Jul, [facility] [address] [address] Jul, Decubitus ulcer of left thigh, stage 2 L89.892 [facility] [address] [address] 17 Jul, 2016 Decubitus ulcer of left thigh, stage 2 L89.892 [facility] [address] [place] [address] 17 Jul, 2016 [facility] [address] [address] 15 Jul, 2016 Decubitus ulcer of left thigh, stage 2 L89.892 [facility] [address] [address] 14 Jul, 2016 [facility] [address] [address] 13 Jul, 2016 Cellulitis of other specified site L03.818 ; Illicit drug use F19.90 and Decubitus ulcer of left thigh, stage 2 L89.892 [facility] [address] [address] Jul, [facility] [address] [address] Jul, Cellulitis of right breast N61.0 [facility] [address] [address] Jun, [facility] [address] [address] Jun, [facility] [address] [place] [id number] [place] [address] 04 Jun, 2016 Wheezing R06.2 and Arthralgia, unspecified joint M25.50 [place] [address] [address] May, [facility] [address] [address] May, [facility] [address] [address] May, [place] [address] [address] 05 May, 2016 Shortness of breath R06.02 [place] [address] [address] May, Onychomycosis B35.1 and Fissure in skin of foot R23.4 [place] [address] [address] Apr, [facility] [address] [address] 18 Apr, 2016 Dizziness R42 [place] [address] [address] 14 Apr, 2016 Shortness of breath R06.02 ; Essential hypertension I10 ; Dizziness R42 and On home oxygen therapy Z99.81 [place] [address] [place] [id number] [place] [address] Apr, [place] [address] [address] 08 Apr, 2016 [place] [address] [address] 07 Apr, 2016 [place] [address] [address] 04 Apr, 2016 [place] [address] [address] Apr, [facility] [address] [place] [address] Apr, [facility] [address] [place] [id number] [place] [address] Apr, [facility] [address] [place] [id number] [place] [address] Mar, Mild chronic obstructive pulmonary disease J44.9 [facility] [address] [place] [id number] [place] [address] Mar, [facility] [address] [place] [address] [place] [address] Mar, Epigastric pain R10.13 ; Low back pain M54.5 ; Other chronic pain G89.29 and Breast cancer screening Z12.39 [facility] [address] [place] [id number] [place] [address] Mar, [facility] [address] [place] [id number] [place] [address] Mar, [facility] [address] [place] [id number] [place] [address] Feb, [facility] [address] [place] [id number] [place] [address] Feb, [facility] [address] [place] [id number] [place] [address] Feb, 2016 Fissure in skin of foot R23.4 and Onychomycosis B35.1 [facility] [address] [place] [address] Jan, Agoraphobia F40.00 [facility] [address] [place] [id number] [place] [address] 14 Dec, 2015 Agoraphobia F40.00 [facility] [address] [place] [id number] [place] [address] Dec, Mild persistent asthma without complication J45.30 ; Dysthymic disorder F34.1 and Upper respiratory tract infection, unspecified type J06.9 [place] [address] [address] Nov, Agoraphobia F40.00 [place] [address] [address] October, Agoraphobia F40.00 [place] [address] [address] Sep, Panic disorder without agoraphobia F41.0 ; Agoraphobia F40.00 and Dysthymic disorder F34.1 [place] [address] [place] [address] [place] [address] Sep, Panic attacks F41.0 [place] [address] [address] Sep, [place] [address] [address] Sep, Panic disorder without agoraphobia F41.0 ; Varicose veins of both lower extremities I83.93 and Fatigue R53.83 [place] [address] [place] [address] [place] [address] Sep, Fatigue R53.83 [place] [address] [place] [address] [place] [address] Sep, [place] [address] [place] [address] [place] [address] Aug, [place] [address] [address] Aug, [place] [address] [place] [id number] [place] [address] Aug, 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 [place] [address] [address] Aug, Panic disorder without agoraphobia F41.0 ; Agoraphobia F40.00 and Dysthymic disorder F34.1 [place] [address] [place] [address] [place] [address] Aug, Shortness of breath R06.02 ; Panic attacks F41.0 ; COPD (chronic obstructive pulmonary disease) J44.9 ; Tobacco abuse Z72.0 ; Family history of diabetes mellitus Z83.3 and Weight gain R63.[address] [address] Aug, [place] [address] [address] Jul, [address] [address] Jun, Onychomycosis B35.1 ; Neuropathy G62.9 and Impaired circulation I99.[address] [address] Mar, Fissure in skin of foot R23.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 [place] [address] [place] [address] Feb, Family history of coronary arteriosclerosis V17.3 [place] [address] [place] [id number] [place] [address] Feb, Allergic rhinitis due to pollen 477.0 ; Unspecified breast screening V76.10 ; Anxiety 300.00 and Family history of coronary arteriosclerosis V17.3 [place] [address] [address] Jan, [place] [address] [address] Dec, [place] [address] [address] Dec, Onychomycosis 110.1 and Skin fissures 709.8 [facility] [address] [facility] [id number] [place] [address] 14 Sep, 2014 [facility] [address] [facility] [id number] [place] [address] Sep, [facility] [address] [facility] [id number] [place] [address] Aug, [facility] [address] [facility] [id number] [place] [address] Aug, [facility] [address] [facility] [id number] [place] [address] Jul, [facility] [address] [place] [id number] [place] [address] Jul, [facility] [address] [place] [id number] [place] [address] Jun, [facility] [address] [place] [id number] [place] [address] Jun, [facility] [address] [place] [id number] [place] [address] Jun, [facility] [address] [facility] [id number] [place] [address] Jun, [facility] [address] [facility] [id number], [place] [address] Jun, [facility] [address] [facility] [id number] [place] [address] May, [facility] [address] [facility] [id number] [place] [address] May, [facility] [address] [facility] [id number], [place] [address] May, [facility] [address] [facility] [id number], [place] [address] May, [facility] [place] [facility] [address] [id number] [place] [address] May, [facility] [place] [facility] [address] [id number] [place] [address] May, [facility] [place] [facility] [address] [id number] [place] [address] May, [facility] [place] [facility] [address] [id number] [place] [address] May, [facility] [place] [facility] [address] [id number] [place] [address] Apr, [facility] [place] [facility] [address] [id number] [place] [address] Apr, [facility] [place] [facility] [address] [id number] [place] [address] Apr, [facility] [place] [facility] [address] [id number], [place] [address] Apr, [facility] [place] [facility] [address] [id number], [place] [address] Apr, [facility] [place] [facility] [address] [id number] [place] [address] Apr, [facility] [place] [facility] [address] [id number], [place] [address] Apr, [facility] [place] [facility] [address] [id number], [place] [address] Apr, [facility] [place] [facility] [address] [id number] [place] [address] Apr, [facility] [place] [facility] [address] [id number], [place] [address] Apr, [facility] [place] [facility] [address] [id number] [place] [address] Mar, [facility] [place] [facility] [address] [id number] [place] [address] Mar, [facility] [place] [facility] [address] [id number] [place] [address] Mar, [facility] [place] [facility] [address] [id number] [place] [address] Mar, [facility] [place] [facility] [address] [id number] [place] [address] Mar, [facility] [place] [facility] [address] [id number] [place] [address] Mar, [facility] [place] [facility] [address] [id number] [place] [address] Mar, [facility] [place] [facility] [address] [id number] [place] [address] Mar, [facility] [place] [facility] [address] [id number] [place] [address] Mar, [facility] [place] [facility] [address] [id number] [place] [address] Mar, [facility] [place] [facility] [address] [id number] [place] [address] Mar, [facility] [place] [facility] [address] [id number] [place] [address] Mar, [facility] [place] [facility] [address] [id number] [place] [address] Mar, [facility] [place] [facility] [address] [id number] [place] [address] Mar, [facility] [place] [facility] [address] [id number] [place] [address] Mar, [facility] [place] [facility] [address] [id number] [place] [address] Mar, [facility] [place] [facility] [address] [id number] [place] [address] Mar, [facility] [place] [facility] [address] [id number] [place] [address] 16 Mar, 2014 [facility] [place] [facility] [address] [id number] [place] [address] 16 Mar, 2014 [facility] [place] [facility] [address] [id number] [place] [address] 15 Mar, 2014 [facility] [place] [facility] [address] [id number] [place] [address] 14 Mar, 2014 [facility] [place] [facility] [address] [id number] [place] [address] 14 Mar, 2014 [facility] [place] [facility] [address] [id number] [place] [address] 14 Mar, 2014 [facility] [place] [facility] [address] [id number] [place] [address] 14 Mar, 2014 [facility] [place] [facility] [address] [id number] [place] [address] 09 Mar, 2014 [facility] [place] [facility] [address] [id number] [place] [address] 09 Mar, 2014 [facility] [place] [facility] [address] [id number], [place] [address] 09 Mar, 2014 [facility] [place] [facility] [address] [id number], [place] [address] 09 Mar, 2014 [facility] [place] [facility] [address] [id number], [place] [address] 30 Feb, 2013 [facility] [place] [facility] [address] [id number] [place] [address] 30 Sep, 2013 [facility] [place] [facility] [address] [id number] [place] [address] 30 Feb, 2013 [facility] [place] [facility] [address] [id number], [place] [address] 30 Feb, 2013 [facility] [place] [facility] [address] [id number], [place] [address] Feb, 2013 [facility] [place] [facility] [address] [id number] [place] [address] Feb, 2013 [facility] [place] [facility] [address] [id number] [place] [address] Feb, 2013 [facility] [place] [facility] [address] [id number] [place] [address] Feb, 2013 [facility] [place] [facility] [address] [id number] [place] [address] Feb, 2013 [facility] [place] [facility] [address] [id number] [place] [address] Feb, 2013 [facility] [place] [facility] [address] [id number] [place] [address] Feb, 2013 [facility] [place] [facility] [address] [address] [id number] [place] [address] Feb, 2013 [facility] [place] [facility] [address] [id number] [place] [address] Jan, [facility] [place] [facility] [address] [id number] [place] [address] Jan, [facility] [place] [facility] [address] [id number] [place] [address] Jan, [facility] [place] [facility] [address] [id number] [place] [address] Jan, [facility] [place] [facility] [address] [id number] [place] [address] Jan, [facility] [place] [facility] [address] [id number] [place] [address] Jan, [facility] [place] [facility] [address] [id number] [place] [address] Jan, [facility] [place] [facility] [address] [id number] [place] [address] Jan, [facility] [place] [facility] [address] [id number] [place] [address] Jan, [facility] [place] [facility] [address] [id number] [place] [address] Jan, [facility] [place] [facility] [address] [id number] [place] [address] Jan, [facility] [place] [facility] [address] [id number] [place] [address] Jan, [facility] [place] [facility] [address] [id number] [place] [address] Jan, [facility] [place] [facility] [address] [id number] [place] [address] Dec, [facility] [place] [facility] [address] [id number] [place] [address] Dec, [facility] [place] [facility] [address] [id number] [place] [address] Dec, [facility] [place] [facility] [address] [id number] [place] [address] Dec, [facility] [place] [facility] [address] [id number] [facility] [address] Dec, [facility] [place] [facility] [address] [id number] [place] [address] Dec, [facility] [place] [facility] [address] [id number] [place] [address] Dec, [facility] [place] [facility] [address] [id number] [place] [address] Dec, [facility] [place] [facility] [address] [id number] [place] [address] Dec, [facility] [place] [facility] [address] [id number] [place] [address] Dec, [facility] [place] [facility] [address] [id number] [place] [address] Dec, 2013 [facility] [place] [facility] [address] [id number] [place] [address] Dec, 2013 [facility] [place] [facility] [address] [id number] [place] [address] Dec, [facility] [place] [facility] [address] [id number] [place] [address] Dec, 2013 [facility] [place] [facility] [address] [id number] [place] [address] Dec, 2013 [facility] [place] [facility] [address] [id number] [place] [address] Dec, [facility] [place] [facility] [address] [id number] [place] [address] Dec, [facility] [place] [facility] [address] [id number] [place] [address] Dec, [facility] [place] [facility] [address] [id number] [place] [address] Nov, [facility] [place] [facility] [address] [id number] [place] [address] Nov, [facility] [place] [facility] [address] [id number] [place] [address] Nov, [facility] [place] [facility] [address] [id number] [place] [address] Nov, [facility] [place] [facility] [address] [id number] [place] [address] Nov, [facility] [place] [facility] [address] [id number] [place] [address] Nov, [facility] [place] [facility] [address] [id number] [place] [address] Nov, [facility] [place] [facility] [address] [id number] [place] [address] Nov, [facility] [place] [facility] [address] [id number] [place] [address] Nov, [facility] [place] [facility] [address] [id number] [place] [address] Nov, [facility] [place] [facility] [address] [id number] [place] [address] Nov, [facility] [place] [facility] [address] [id number] [place] [address] Nov, [facility] [place] [facility] [address] [id number] [place] [address] Nov, [facility] [place] [facility] [address] [id number] [place] [address] Nov, [facility] [place] [facility] [address] [id number] [place] [address] Nov, [facility] [place] [facility] [address] [id number] [place] [address] Nov, [facility] [place] [facility] [address] [id number] [place] [address] Nov, [facility] [place] [facility] [address] [id number] [place] [address] Nov, [facility] [place] [facility] [address] [id number] [place] [address] Nov, [facility] [place] [facility] [address] [id number] [place] [address] Nov, [facility] [place] [facility] [address] [id number] [place] [address] October, [facility] [place] [facility] [address] [id number] [place] [address] October, [facility] [place] [facility] [address] [id number] [place] [address] October, [facility] [place] [facility] [address] [id number] [place] [address] October, [facility] [place] [facility] [address] [id number] [place] [address] Sep, [facility] [place] [facility] [address] [id number] [place] [address] Sep, [facility] [place] [facility] [address] [id number] [place] [address] Sep, [facility] [place] [facility] [address] [id number] [place] [address] Sep, [facility] [place] [facility] [address] [id number] [place] [address] Sep, [facility] [place] [facility] [address] [id number] [place] [address] Sep, [facility] [place] [facility] [address] [id number] [place] [address] Sep, [facility] [place] [facility] [address] [id number] [place] [address] Sep, [facility] [place] [facility] [address] [id number] [place] [address] Sep, [facility] [place] [facility] [address] [id number] [place] [address] Aug, [facility] [place] [facility] [address] [id number] [place] [address] Aug, [facility] [place] [facility] [address] [id number] [place] [address] Aug, [facility] [place] [facility] [address] [id number] [place] [address] Aug, [facility] [place] [facility] [address] [id number] [place] [address] 07 Aug, 2013 [facility] [place] [facility] [address] [id number] [place] [address] 07 Aug, 2013 [facility] [place] [facility] [address] [id number] [place] [address] Aug, [facility] [address] [id number] [place] [address] Aug, [facility] [place] [facility] [address] [id number] [place] [address] Jul, [facility] [place] [facility] [address] [id number] [place] [address] Jul, [facility] [place] [facility] [address] [id number] [place] [address] Jun, [facility] [place] [facility] [address] [id number] [place] [address] Jun, [facility] [place] [facility] [address] [id number] [place] [address] Jun, [facility] [place] [facility] [address] [id number] [place] [address] Jun, [facility] [place] [facility] [address] [id number] [place] [address] Jun, [facility] [place] [facility] [address] [id number] [place] [address] Jun, [facility] [place] [facility] [address] [id number] [place] [address] Jun, [facility] [place] [facility] [address] [id number], [place] [address] Jun, [facility] [place] [facility] [address] [id number] [place] [address] Jun, [facility] [place] [facility] [address] [id number] [place] [address] Jun, [facility] [place] [facility] [address] [id number] [place] [address] Jun, [facility] [place] [facility] [address] [id number] [place] [address] Jun, [facility] [place] [facility] [address] [id number] [place] [address] 31 May, 2012 [facility] [address] [id number] [place] [address] 31 May, 2013 [facility] [address] [id number] [place] [address] 31 May, 2013 [facility] [address] [id number] [place] [address] 31 May, 2013 [facility] [address] [id number] [place] [address] 31 May, 2013 [facility] [address] [id number] [place] [address] May, [facility] [address] [id number] [place] [address] 26 May, 2013 [facility] [address] [id number] [place] [address] May, [facility] [address] [id number] [place] [address] 23 May, 2013 [facility] [address] [id number] [place] [address] 16 May, 2013 [facility] [address] [id number] [place] [address] 16 May, 2013 [facility] [address] [id number] [place] [address] 16 May, 2013 [facility] [address] [id number] [place] [address] 16 May, 2013 [facility] [place] [facility] [address] [id number] [place] [address] Apr, [facility] [address] [id number] [place] [address] 29 Apr, 2013 [facility] [address] [id number] [place] [address] Mar, [facility] [place] [facility] [address] [id number] [place] [address] Mar, [facility] [place] [facility] [address] [id number] [place] [address] Feb, [facility] [place] [facility] [address] [id number] [place] [address] Feb, [facility] [place] [facility] [address] [id number] [place] [address] Feb, [facility] [place] [facility] [address] [id number] [place] [address] Feb, [facility] [place] [facility] [address] [id number] [place] [address] Jan, [facility] [place] [facility] [address] [id number] [place] [address] Jan, [facility] [place] [facility] [address] [id number] [place] [address] Jan, [facility] [place] [facility] [address] [id number] [place] [address] Jan, [facility] [place] [facility] [address] [id number] [place] [address] Jan, [facility] [place] [facility] [address] [id number] [place] [address] Jan, [facility] [place] [facility] [address] [id number] [place] [address] Dec, [facility] [place] [facility] [address] [id number] [place] [address] Dec, [facility] [place] [facility] [address] [id number] [place] [address] Dec, [facility] [place] [facility] [address] [id number] [place] [address] Dec, [facility] [place] [facility] [address] [id number], [place] [address] Nov, [facility] [address] [id number] [place] [address] October, [facility] [place] [facility] [address] [id number] [place] [address] October, [facility] [address] [id number] [place] [address] October, [facility] [place] [facility] [address] [id number] [place] [address] Sep, [facility] [address] [id number] [place] [address] Sep, [facility] [place] [facility] [address] [id number] [place] [address] Jun, [facility] [address] [id number], [place] [address] Jun, [facility] [place] [facility] [address] [id number], [place] [address] Jun, [facility] [address] [id number] [place] [address] Apr, [facility] [place] [facility] [address] [id number] [place] [address] Apr, [facility] [place] [facility] [address] [id number] [place] [address] Apr, [facility] [place] [facility] [address] [id number], [place] [address] Apr, [facility] [place] [facility] [address] [id number], [place] [address] Mar, [facility] [place] [facility] [address] [id number] [place] [address] Mar, [facility] [place] [facility] [address] [id number], [place] [address] Mar, [facility] [place] [facility] [address] [id number] [place] [address] 23 Mar, 2012 [facility] [place] [facility] [address] [id number] [place] [address] 29 Feb, 2012 [facility] [place] [facility] [address] [id number] [place] [address] 27 Feb, 2012 [facility] [place] [facility] [address] [id number] [place] [address] 20 Feb, 2012 [facility] [place] [facility] [address] [id number] [place] [address] 30 Jan, 2012 [facility] [place] [facility] [address] [id number] [place] [address] Jan, [facility] [place] [facility] [address] [id number] [place] [address] Jan, [facility] [place] [facility] [address] [id number] [place] [address] Jan, [facility] [place] [facility] [address] [id number] [place] [address] Dec, [facility] [place] [facility] [address] [id number] [place] [address] Dec, [facility] [place] [facility] [address] [id number] [place] [address] Nov, [facility] [place] [facility] [address] [id number] [place] [address] Nov, [facility] [place] [facility] [address] [id number] [place] [address] October, [facility] [place] [facility] [address] [id number] [place] [address] October, [facility] [place] [facility] [address] [id number] [place] [address] October, [facility] [place] [facility] [address] [id number] [place] [address] Sep, [facility] [address] [facility] [id number] [place] [address] Sep, [facility] [place] [facility] [address] [id number] [place] [address] Sep, [facility] [place] [facility] [address] [facility] [id number] [place] [address] 27 Aug, 2011 [facility] [place] [facility] [address] [facility] [id number] [place] [address] 26 Aug, 2011 [facility] [place] [facility] [address] [facility] [id number] [place] [address] 15 Aug, 2011 [facility] [place] [facility] [address] [facility] [id number] [place] [address] 15 Aug, 2011 [facility] [id number] [place] [address] Aug, [facility] [place] [facility] [address] [facility] [id number] [place] [address] Jul, [facility] [place] [facility] [id number] [place] [address] 16 Jul, 2011 [facility] [place] [facility] [address] [facility] [id number] [place] [address] Jul, [facility] [place] [facility] [id number], [place] [address] Jul, [facility] [place] [facility] [address] [facility] [id number], [place] [address] Jul, [facility] [place] [facility] [address] [facility] [id number] [place] [address] 06 Jul, 2011 [facility] [place] [facility] [address] [facility] [id number] [place] [address] 03 Jul, 2011 [facility] [place] [facility] [id number] [place] [address] Jul, [facility] [place] [facility] [address] [id number] [place] [address] Jun, [facility] [place] [facility] [address] [id number] [place] [address] Jun, [facility] [place] [facility] [address] [id number] [place] [address] May, [facility] [place] [facility] [address] [id number] [place] [address] May, [facility] [place] [facility] [address] [id number] [place] [address] May, [facility] [place] [facility] [address] [id number] [place] [address] May, [facility] [place] [facility] [address] [id number] [place] [address] Apr, [facility] [place] [facility] [address] [id number] [place] [address] Apr, [facility] [place] [facility] [address] [id number] [place] [address] Apr, [facility] [place] [facility] [address] [id number] [place] [address] Mar, [facility] [place] [facility] [address] [id number] [place] [address] Mar, [facility] [place] [facility] [address] [id number] [place] [address] Mar, [facility] [place] [facility] [address] [id number] [place] [address] Mar, [facility] [place] [facility] [address] [id number] [place] [address] Dec, [facility] [place] [facility] [address] [id number] [place] [address] October, [facility] [place] [facility] [address] [id number] [place] [address] May, [facility] [id number], [place] [address] May, [facility] [id number], [place] [address] May, [facility] [id number], [place] [address] May, [facility] [id number], [place] [address] Mar, [facility] [id number], [place] [address] Mar, [facility] [id number] [place] [address] May, [facility] [id number], [place] [address] May, [facility] [id number], [place] [address] May, [facility] [id number], [place] [address] May, [facility] [address], [place] [address] Apr, [facility] [address], [place] [address] Apr, [facility] [id number], [place] [address] October, IMMUNIZATIONS No Known Immunizations SOCIAL HISTORY Never Assessed REASON FOR VISIT EMR-[facility] PLAN OF CARE VITAL SIGNS MEDICATIONS Unknown [...]
--- OUTSIDE RECORDS SUMMARY | 2019-01-13 10:17 | XMS REPORT ---
Author Author Migration, Doctor Organization [facility] Address Unknown Phone Unavailable Care Team Providers Care Halal Butcher Name Role Phone Migration, Doctor Unavailable Unavailable PROBLEMS Type Condition ICD9-CM Code KHA60-PW Code Onset Dates Condition Status SNOMED Code Problem History of illicit drug use Z87.898 Active 200198569 Problem MRSA (methicillin resistant staph aureus) culture positive Z22.322 Active 357175220 Problem Snoring R06.83 Active 78250431 Problem Neuropathy G62.9 Active 509868106 Problem Essential hypertension I10 Active 52108051 Problem Fatigue R53.83 Active 95733041 Problem Panic disorder without agoraphobia F41.0 Active 27082897 Problem Upper respiratory tract infection, unspecified type J06.9 Active 32872949 Problem Varicose veins of both lower extremities I83.93 Active 87189015 Problem Other chronic pain G89.29 Active 83029653 Problem Mild persistent asthma without complication J45.30 Active 516175144 Problem On home oxygen therapy Z99.81 Active 551779531056 Problem Mild chronic obstructive pulmonary disease J44.9 Active 725025620 Problem Major depressive disorder, recurrent episode, moderate F33.1 Active 847353601 Problem 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 Active 45692866 Problem COPD exacerbation J44.1 Active 917433783 Problem Mood disorder F39 Active 05523008 Problem Dysthymic disorder F34.1 Active 37195990 Problem Psychotic disorder F29 Active 75483245 Problem Impaired circulation I99.9 Active 16868192 Problem Agoraphobia F40.00 Active 02788356 Problem COPD (chronic obstructive pulmonary disease) with chronic bronchitis J44.9 Active 820469956 Problem Exertional asthma J45.990 Active 36678076 Problem 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 051281791 Problem Arthritis M19.90 Active 4764118 ALLERGIES No Information ENCOUNTERS Encounter Location Date Diagnosis [facility] [address] [facility] [id number] [address] Nov, [facility] [id number] [place] [address] October, [facility] [id number] [place] [address] October, [facility] [id number] [place] [address] Sep, Morbid obesity E66.01 and Lumbar neuritis M54.16 [facility] [id number] [place] [address] Sep, Panic disorder without agoraphobia F41.0 and Major depressive disorder, recurrent episode, moderate F33.1 [facility] [id number] [place] [address] Sep, Gastroenteritis K52.9 ; Low back pain M54.5 ; Other chronic pain G89.29 and Morbid obesity E66.01 [place] [id number] [place] [address] Sep, Major depressive disorder, recurrent episode, moderate F33.1 ; Panic disorder without agoraphobia F41.0 and 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 [place] [id number] [place] [address] Sep, Panic disorder without agoraphobia F41.0 [facility] [id number] [place] [address] Sep, Panic disorder without agoraphobia F41.0 [facility] [id number] [place] [address] Aug, Panic disorder without agoraphobia F41.0 ; Major depressive disorder, recurrent episode, moderate F33.1 ; 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 ; Psychotic disorder F29 ; Tardive dyskinesia G24.01 and Morbid obesity E66.01 [place] [id number] [place] [address] Aug, Dysthymic disorder F34.1 and Psychotic disorder F29 [facility] [id number] [place] [address] Aug, Encounter for Medicare annual wellness exam Z00.00 ; Morbid obesity E66.01 and 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 [facility] [id number] [place] [address] Aug, Dysthymic disorder F34.1 and Psychotic disorder F29 [facility] [place] [id number] [place] [address] Aug, Neuropathy G62.9 ; Onychomycosis B35.1 and Xerosis of skin L85.3 [facility] [place] [id number] [place] [address] Jul, [facility] [place] [address] [address] Jul, Mood disorder F39 ; Wheezing R06.2 ; Choking, initial encounter T17.308A and Coughing R05 [place] [place] [id number] [place] [address] 07 Jul, 2018 Low back pain M54.5 [facility] [id number] [place] [address] Jun, Flu-like symptoms R68.89 ; BMI 45.0-49.9, adult Z68.42 ; COPD exacerbation J44.1 and Acute bronchitis J20.9 [facility] [id number] [place] [address] Jun, [facility] [id number] [place] [address] May, [place] [place] [id number] [place] [address] May, Onychomycosis B35.1 and 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 [facility] [place] [id number] [place] [address] 17 May, 2018 Low back pain M54.5 and Edema leg R60.0 [place] [address] [address] May, BMI 45.0-49.9, adult Z68.42 ; Well woman exam with routine gynecological exam Z01.419 and Breast cancer screening Z12.31 [place] [address] [address] 19 Apr, 2018 [address] M19.[address] [address] 16 Apr, 2018 Arthritis M19.90 and Otalgia of both ears H92.[address] [address] 28 Feb, [address] [address] 28 Feb, 2018 Low back pain M54.5 ; Other chronic pain G89.29 ; Exertional asthma J45.990 and Encounter for immunization Z23 [address] [address] 21 Feb, 2018 Skin fissures R23.4 ; Neuropathy G62.9 and Onychomycosis B35.[address] [address] 05 Feb, 2018 Dysthymic disorder F34.[address] [address] 04 Feb, 2018 [place] [address] [address] Jan, [facility] [address] [address] Jan, Abrasion of right elbow, initial encounter S50.311A ; Abrasion, right knee, initial encounter S80.211A and Sprain of other ligament of right ankle, initial encounter S93.491A [facility] [address] [address] Jan, [facility] [address] [address] Jan, Injury of left ankle, initial encounter S99.912A ; Fall down stairs, initial encounter W10.8XXA and BMI 45.0-49.9, adult Z68.42 [facility] [address] [address] Jan, COPD exacerbation J44.1 [place] [address] [address] Jan, Dysfunction of both eustachian 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 [place] [address] [address] 08 Jan, 2018 Bronchitis J40 and Acute suppurative otitis media of left ear without spontaneous rupture of tympanic membrane, recurrence not specified H66.002 [place] [address] [address] Jan, [place] [address] [address] Jan, Bronchitis J40 and BMI 40.0-44.9, adult Z68.41 [facility] [address] [address] Jan, [place] [address] [address] Dec, Gastric pain R10.9 [place] [address] [address] Dec, [place] [place] [address] [address] Dec, History of illicit drug use Z87.898 ; Neuropathy G62.9 ; COPD (chronic obstructive pulmonary disease) with chronic bronchitis J44.9 and Acute pain of right knee M25.561 [facility] [place] [id number] [place] [address] 30 Nov, 2017 [place] [address] [address] 15 Nov, 2017 Onychomycosis B35.1 and Contusion of left foot, subsequent encounter S90.32XD [place] [address] [address] Nov, COPD exacerbation J44.1 [place] [address] [address] Sep, [place] [address] [address] Sep, Dysthymic disorder F34.1 ; Tobacco abuse Z72.0 ; Pain in right knee M25.561 ; Pain in left knee M25.562 ; Other chronic pain G89.29 and BMI 40.0- 44.9, adult Z68.[address] [address] Aug, Major depressive disorder, recurrent episode, moderate F33.1 and 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 [place] [id number] [place] [address] Aug, Dysthymic disorder F34.1 ; Non-pressure chronic ulcer of left thigh, unspecified ulcer stage L97.129 ; Tobacco abuse Z72.0 ; Mild chronic obstructive pulmonary disease J44.9 and Forgetfulness R68.89 [place] [address] [address] 09 Aug, 2017 Onychomycosis B35.1 ; Fissure in skin of foot R23.4 and Foot callus L84 [facility] [id number] [place] [address] Jul, Right medial knee pain M25.561 ; Upper respiratory tract infection, unspecified type J06.9 and BMI 40.0-44.9, adult Z68.41 [facility] [id number] [place] [address] Jul, Nausea and vomiting, intractability of vomiting not specified, unspecified vomiting type R11.2 ; Left ear pain H92.02 and Gastric pain R10.9 [facility] [id number] [place] [address] Apr, Encounter for immunization Z23 [facility] [address] [address] Apr, Onychomycosis B35.1 ; Xerosis of skin L85.3 ; Neuropathy G62.9 and 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 [facility] [id number] [place] [address] Jan, Onychomycosis B35.1 and Neuropathy G62.9 [facility] [id number] [place] [address] Dec, [facility] [id number] [place] [address] Dec, [facility] [id number] [place] [address] Nov, [facility] [id number] [place] [address] Aug, [facility] [id number] [place] [address] Aug, [facility] [id number] [place] [address] Jul, [facility] [id number] [place] [address] Jul, [facility] [id number] [place] [address] 17 Jul, 2016 Decubitus ulcer of left thigh, stage 2 L89.892 [facility] [id number] [place] [address] 17 Jul, 2016 Decubitus ulcer of left thigh, stage 2 L89.892 [facility] [id number] [place] [address] 17 Jul, 2016 [facility] [id number] [place] [address] 15 Jul, 2016 Decubitus ulcer of left thigh, stage 2 L89.892 [facility] [id number] [place] [address] 14 Jul, 2016 [facility] [id number] [place] [address] 13 Jul, 2016 Cellulitis of other specified site L03.818 ; Illicit drug use F19.90 and Decubitus ulcer of left thigh, stage 2 L89.892 [facility] [id number] [place] [address] Jul, [facility] [id number] [place] [address] 06 Jul, 2016 Cellulitis of right breast N61.0 [facility] [id number] [place] [address] Jun, [facility] [id number] [place] [address] Jun, [facility] [id number] [place] [address] Jun, Wheezing R06.2 and Arthralgia, unspecified joint M25.50 [facility] [id number] [place] [address] May, [facility] [id number] [place] [address] May, [facility] [id number] [place] [address] May, [facility] [id number] [place] [address] 05 May, 2016 Shortness of breath R06.02 [facility] [id number] [place] [address] 02 May, 2016 Onychomycosis B35.1 and Fissure in skin of foot R23.4 [facility] [id number] [place] [address] Apr, [facility] [id number] [place] [address] 18 Apr, 2016 Dizziness R42 [facility] [id number] [place] [address] 14 Apr, 2016 Shortness of breath R06.02 ; Essential hypertension I10 ; Dizziness R42 and On home oxygen therapy Z99.81 [facility] [id number] [place] [address] Apr, [facility] [id number] [place] [address] 08 Apr, 2016 [facility] [id number] [place] [address] Apr, [facility] [id number] [place] [address] Apr, [facility] [id number] [place] [address] Apr, [facility] [id number] [place] [address] Apr, [facility] [id number] [place] [address] Apr, [facility] [id number] [place] [address] Mar, Mild chronic obstructive pulmonary disease J44.9 [place] [id number] [place] [address] Mar, [facility] [id number] [place] [address] Mar, Epigastric pain R10.13 ; Low back pain M54.5 ; Other chronic pain G89.29 and Breast cancer screening Z12.39 [place] [id number] [place] [address] Mar, [place] [id number] [place] [address] Mar, [place] [id number] [place] [address] Feb, [place] [id number] [place] [address] Feb, [place] [id number] [place] [address] Feb, Fissure in skin of foot R23.4 and Onychomycosis B35.1 [place] [id number] [place] [address] Jan, Agoraphobia F40.00 [place] [id number] [place] [address] 14 Dec, 2015 Agoraphobia F40.00 [place] [id number] [place] [address] 07 Dec, 2015 Mild persistent asthma without complication J45.30 ; Dysthymic disorder F34.1 and Upper respiratory tract infection, unspecified type J06.9 [place] [id number] [place] [address] 16 Nov, 2015 Agoraphobia F40.00 [place] [id number] [place] [address] October, Agoraphobia F40.00 [facility] [id number] [place] [address] Sep, Panic disorder without agoraphobia F41.0 ; Agoraphobia F40.00 and Dysthymic disorder F34.1 [place] [address] [address] Sep, Panic attacks F41.0 [facility] [address] [address] Sep, [facility] [address] [address] Sep, Panic disorder without agoraphobia F41.0 ; Varicose veins of both lower extremities I83.93 and Fatigue R53.83 [place] [address] [address] Sep, Fatigue R53.83 [facility] [id number] [place] [address] Sep, [facility] [address] [address] Aug, [facility] [id number] [place] [address] Aug, [facility] [id number] [place] [address] Aug, 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 [facility] [id number] [place] [address] Aug, Panic disorder without agoraphobia F41.0 ; Agoraphobia F40.00 and Dysthymic disorder F34.1 [facility] [id number] [place] [address] Aug, Shortness of breath R06.02 ; Panic attacks F41.0 ; COPD (chronic obstructive pulmonary disease) J44.9 ; Tobacco abuse Z72.0 ; Family history of diabetes mellitus Z83.3 and Weight gain R63.5 [place] [id number] [place] [address] Aug, [place] [id number] [place] [address] Jul, [place] [address] [address] Jun, Onychomycosis B35.1 ; Neuropathy G62.9 and Impaired circulation I99.[address] [address] Mar, Fissure in skin of foot R23.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 [place] [address] [address] Feb, Family history of coronary arteriosclerosis V17.3 [place] [address] [address] Feb, Allergic rhinitis due to pollen 477.0 ; Unspecified breast screening V76.10 ; Anxiety 300.00 and Family history of coronary arteriosclerosis V17.3 [place] [id number] [place] [address] Jan, [place] [id number] [place] [address] Dec, [place] [id number] [place] [address] Dec, Onychomycosis 110.1 and Skin fissures 709.8 [place] [id number] [place] [address] Sep, [place] [address] [address] Sep, [facility] [place] [facility] [address] [id number] [place] [address] Aug, [facility] [place] [facility] [address] [id number] [place] [address] Aug, [facility] [place] [facility] [address] [id number] [place] [address] Jul, [facility] [place] [facility] [address] [id number] [place] [address] Jul, [facility] [place] [facility] [address] [id number] [place] [address] Jun, [facility] [place] [facility] [address] [id number] [place] [address] Jun, [facility] [place] [facility] [address] [id number] [place] [address] Jun, [facility] [place] [facility] [address] [id number] [place] [address] Jun, [facility] [place] [facility] [address] [id number] [place] [address] Jun, [facility] [place] [facility] [address] [id number] [place] [address] May, [facility] [place] [facility] [address] [id number], [place] [address] May, [facility] [place] [facility] [address] [id number], [place] [address] May, [facility] [place] [facility] [address] [id number] [place] [address] May, [facility] [place] [facility] [address] [id number] [place] [address] May, [facility] [place] [facility] [address] [id number] [place] [address] May, [facility] [place] [facility] [address] [id number] [place] [address] May, [facility] [place] [facility] [address] [id number] [place] [address] May, [facility] [place] [facility] [address] [id number] [place] [address] Apr, [facility] [place] [facility] [address] [id number] [place] [address] Apr, [facility] [place] [facility] [address] [id number] [place] [address] Apr, [facility] [place] [facility] [address] [id number] [place] [address] Apr, [facility] [place] [facility] [address] [id number] [place] [address] Apr, [facility] [place] [facility] [address] [id number] [place] [address] Apr, [facility] [place] [facility] [address] [id number] [place] [address] Apr, [facility] [place] [facility] [address] [id number] [place] [address] Apr, [facility] [place] [facility] [address] [facility] [id number] [place] [address] Apr, [facility] [place] [facility] [address] [id number] [place] [address] Apr, [facility] [place] [facility] [address] [id number], [place] [address] Mar, [facility] [place] [facility] [address] [id number] [place] [address] Mar, [facility] [place] [facility] [address] [id number] [place] [address] Mar, [facility] [place] [facility] [address] [id number], [place] [address] Mar, [facility] [place] [facility] [address] [id number] [place] [address] Mar, [facility] [place] [facility] [address] [id number] [place] [address] Mar, [facility] [place] [facility] [address] [id number] [place] [address] Mar, [facility] [place] [facility] [address] [id number] [place] [address] Mar, [facility] [place] [facility] [address] [id number] [place] [address] Mar, [facility] [place] [facility] [address] [id number] [place] [address] Mar, [facility] [place] [facility] [address] [id number] [place] [address] Mar, [facility] [place] [facility] [address] [id number] [place] [address] Mar, [facility] [place] [facility] [address] [id number] [place] [address] Mar, [facility] [place] [facility] [address] [id number] [place] [address] Mar, [facility] [place] [facility] [address] [id number] [place] [address] Mar, [facility] [place] [facility] [address] [id number] [place] [address] Mar, [facility] [place] [facility] [address] [id number] [place] [address] Mar, [facility] [place] [facility] [address] [id number] [place] [address] Mar, [facility] [place] [facility] [address] [id number] [place] [address] 16 Mar, 2014 [facility] [place] [facility] [address] [id number], [place] [address] 15 Mar, 2014 [facility] [place] [facility] [address] [id number] [place] [address] 14 Mar, 2014 [facility] [place] [facility] [address] [id number] [place] [address] 14 Mar, 2014 [facility] [place] [facility] [address] [id number] [place] [address] 14 Mar, 2014 [facility] [place] [facility] [address] [id number] [place] [address] 14 Mar, 2014 [facility] [place] [facility] [address] [id number] [place] [address] Mar, [facility] [place] [facility] [address] [id number] [place] [address] Mar, [facility] [place] [facility] [address] [address] [id number] [place] [address] Mar, [facility] [place] [facility] [address] [id number], [place] [address] 09 Mar, 2014 [facility] [place] [facility] [address] [id number], [place] [address] 30 Feb, 2013 [facility] [place] [facility] [address] [id number] [place] [address] 30 Sep, 2013 [facility] [place] [facility] [address] [id number], [place] [address] 30 Sep, 2013 [facility] [place] [facility] [address] [id number], [place] [address] 30 Sep, 2013 [facility] [place] [facility] [address] [id number] [place] [address] 26 Sep, 2013 [facility] [place] [facility] [address] [id number] [place] [address] 26 Feb, 2013 [facility] [place] [facility] [address] [id number], [place] [address] 09 Feb, 2013 [facility] [place] [facility] [address] [id number] [place] [address] 09 Feb, 2013 [facility] [place] [facility] [address] [id number] [place] [address] Feb, 2013 [facility] [place] [facility] [address] [id number] [place] [address] Feb, 2013 [facility] [place] [facility] [address] [id number] [place] [address] Feb, 2013 [facility] [place] [facility] [address] [id number] [place] [address] Feb, 2013 [facility] [place] [facility] [address] [id number] [place] [address] Jan, [facility] [place] [facility] [address] [id number] [place] [address] Jan, [facility] [place] [facility] [address] [id number] [place] [address] Jan, [facility] [place] [facility] [address] [id number] [place] [address] Jan, [facility] [place] [facility] [address] [id number] [place] [address] Jan, [facility] [place] [facility] [address] [id number] [place] [address] Jan, [facility] [place] [facility] [address] [id number] [place] [address] Jan, [facility] [place] [facility] [address] [id number] [place] [address] Jan, [facility] [place] [facility] [address] [id number] [place] [address] Jan, [facility] [place] [facility] [address] [id number] [place] [address] Jan, [facility] [place] [facility] [address] [id number] [place] [address] Jan, [facility] [place] [facility] [address] [id number] [place] [address] Jan, [facility] [place] [facility] [address] [id number] [place] [address] Jan, [facility] [place] [facility] [address] [id number] [place] [address] Dec, [facility] [place] [facility] [address] [id number] [place] [address] Dec, [facility] [place] [facility] [address] [id number] [place] [address] Dec, [facility] [place] [facility] [address] [id number] [place] [address] Dec, [facility] [place] [facility] [address] [id number] [place] [address] Dec, [facility] [place] [facility] [address] [id number] [place] [address] Dec, [facility] [place] [facility] [address] [id number] [place] [address] Dec, [facility] [place] [facility] [address] [id number] [place] [address] Dec, [facility] [place] [facility] [address] [id number] [place] [address] Dec, [facility] [place] [facility] [address] [id number] [place] [address] Dec, [facility] [place] [facility] [address] [id number] [place] [address] Dec, [facility] [place] [facility] [address] [id number] [place] [address] Dec, [facility] [place] [facility] [address] [id number] [place] [address] Dec, [facility] [place] [facility] [address] [id number] [place] [address] Dec, [facility] [place] [facility] [address] [id number] [place] [address] Dec, [facility] [place] [facility] [address] [id number] [place] [address] Dec, [facility] [place] [facility] [address] [id number] [place] [address] Dec, [facility] [place] [facility] [address] [id number] [place] [address] Dec, [facility] [place] [facility] [address] [id number] [place] [address] Nov, [facility] [place] [facility] [address] [id number] [place] [address] Nov, [facility] [place] [facility] [address] [id number] [place] [address] Nov, [facility] [place] [facility] [address] [id number] [place] [address] Nov, [facility] [place] [facility] [address] [id number] [place] [address] Nov, [facility] [place] [facility] [address] [id number] [place] [address] Nov, [facility] [place] [facility] [address] [id number] [place] [address] Nov, [facility] [place] [facility] [address] [id number] [place] [address] Nov, [facility] [place] [facility] [address] [id number] [place] [address] Nov, [facility] [place] [facility] [address] [id number] [place] [address] Nov, [facility] [place] [facility] [address] [id number] [place] [address] Nov, [facility] [place] [facility] [address] [id number] [place] [address] Nov, [facility] [place] [facility] [address] [id number] [place] [address] Nov, [facility] [place] [facility] [address] [id number] [place] [address] Nov, [facility] [place] [facility] [address] [id number] [place] [address] Nov, [facility] [place] [facility] [address] [id number] [place] [address] Nov, [facility] [place] [facility] [address] [id number] [place] [address] Nov, [facility] [place] [facility] [address] [id number] [place] [address] Nov, [facility] [place] [facility] [address] [id number] [place] [address] Nov, [facility] [place] [facility] [address] [id number] [place] [address] Nov, [facility] [place] [facility] [address] [id number] [place] [address] October, [facility] [place] [facility] [address] [id number] [place] [address] October, [facility] [place] [facility] [address] [id number] [place] [address] October, [facility] [place] [facility] [address] [id number] [place] [address] October, [facility] [place] [facility] [address] [id number] [place] [address] Sep, [facility] [place] [facility] [address] [id number] [place] [address] Sep, [facility] [place] [facility] [address] [id number] [place] [address] Sep, [facility] [place] [facility] [address] [id number] [place] [address] Sep, [facility] [place] [facility] [address] [id number] [place] [address] Sep, [facility] [place] [facility] [address] [id number] [place] [address] Sep, [facility] [place] [facility] [address] [id number] [place] [address] Sep, [facility] [place] [facility] [address] [id number] [place] [address] Sep, [facility] [place] [facility] [address] [id number] [place] [address] Sep, [facility] [place] [facility] [address] [id number] [place] [address] Aug, [facility] [place] [facility] [address] [id number] [place] [address] Aug, [facility] [place] [facility] [address] [id number] [place] [address] Aug, [facility] [place] [facility] [address] [id number] [place] [address] Aug, [facility] [place] [facility] [address] [id number] [place] [address] Aug, [facility] [place] [facility] [address] [id number] [place] [address] Aug, [facility] [place] [facility] [address] [id number] [place] [address] Aug, [facility] [place] [facility] [address] [id number] [place] [address] Aug, [facility] [place] [facility] [address] [id number] [place] [address] Jul, [facility] [place] [facility] [address] [id number] [place] [address] Jul, [facility] [address] [id number] [place] [address] Jun, [facility] [place] [facility] [address] [id number] [place] [address] Jun, [facility] [address] [id number] [place] [address] Jun, [facility] [place] [facility] [address] [id number] [place] [address] Jun, [facility] [address] [id number] [place] [address] Jun, [facility] [place] [facility] [address] [id number] [place] [address] Jun, [facility] [address] [id number] [place] [address] Jun, [facility] [address] [id number] [place] [address] Jun, [facility] [place] [facility] [address] [id number] [place] [address] Jun, [facility] [address] [id number] [place] [address] Jun, [facility] [place] [facility] [address] [id number] [place] [address] Jun, [facility] [place] [facility] [address] [id number] [place] [address] Jun, [facility] [place] [facility] [address] [id number] [place] [address] May, [facility] [place] [facility] [address] [id number] [place] [address] May, [facility] [place] [facility] [address] [id number] [place] [address] May, [facility] [place] [facility] [address] [id number] [place] [address] May, [facility] [address] [id number] [place] [address] May, [facility] [address] [id number] [place] [address] May, [facility] [place] [facility] [address] [id number] [place] [address] May, [facility] [address] [id number] [place] [address] May, [facility] [address] [id number] [place] [address] May, [facility] [address] [id number] [place] [address] May, [facility] [address] [id number] [place] [address] May, [facility] [address] [id number] [place] [address] May, [facility] [address] [id number] [place] [address] May, [facility] [address] [id number] [place] [address] Apr, [facility] [place] [facility] [address] [id number], [place] [address] Apr, [facility] [place] [facility] [address] [id number] [place] [address] Mar, [facility] [place] [facility] [address] [id number] [place] [address] Mar, [facility] [place] [facility] [address] [id number] [place] [address] 24 Feb, 2013 [facility] [place] [facility] [address] [id number], [place] [address] Feb, [facility] [place] [facility] [address] [id number] [place] [address] Feb, [facility] [place] [facility] [address] [id number] [place] [address] Feb, [facility] [place] [facility] [address] [id number] [place] [address] Jan, [facility] [place] [facility] [address] [id number] [place] [address] Jan, [facility] [place] [facility] [address] [id number] [place] [address] Jan, [facility] [place] [facility] [address] [id number] [place] [address] Jan, [facility] [place] [facility] [address] [id number] [place] [address] Jan, [facility] [place] [facility] [address] [id number] [place] [address] Jan, [facility] [place] [facility] [address] [id number] [place] [address] Dec, [facility] [place] [facility] [address] [id number] [place] [address] Dec, [facility] [place] [facility] [address] [id number] [place] [address] Dec, [facility] [place] [facility] [address] [id number] [place] [address] Dec, [facility] [place] [facility] [address] [id number] [place] [address] Nov, [facility] [place] [facility] [address] [id number] [place] [address] October, [facility] [place] [facility] [address] [id number] [place] [address] October, [facility] [place] [facility] [address] [id number] [place] [address] October, [facility] [address] [id number] [place] [address] Sep, [facility] [place] [facility] [address] [id number] [place] [address] Sep, [facility] [address] [id number] [place] [address] Jun, [facility] [place] [facility] [address] [id number] [place] [address] Jun, [facility] [address] [id number] [place] [address] Jun, [facility] [address] [id number] [place] [address] Apr, [facility] [address] [id number] [place] [address] Apr, [facility] [address] [id number] [place] [address] Apr, [facility] [address] [id number] [place] [address] Apr, [facility] [address] [id number] [place] [address] Mar, [facility] [place] [facility] [address] [id number] [place] [address] Mar, [facility] [address] [id number] [place] [address] Mar, [facility] [place] [facility] [address] [id number] [place] [address] Mar, [facility] [place] [facility] [address] [id number] [place] [address] 29 Feb, 2012 [facility] [place] [facility] [address] [id number] [place] [address] Feb, [facility] [place] [facility] [address] [id number] [place] [address] Feb, [facility] [place] [facility] [address] [id number] [place] [address] Jan, [facility] [place] [facility] [address] [id number] [place] [address] Jan, [facility] [place] [facility] [address] [id number] [place] [address] Jan, [facility] [place] [facility] [address] [id number] [place] [address] Jan, [facility] [place] [facility] [address] [id number] [place] [address] Dec, [facility] [place] [facility] [address] [id number] [place] [address] Dec, [facility] [place] [facility] [address] [id number] [place] [address] Nov, [facility] [place] [facility] [address] [id number] [place] [address] Nov, [facility] [place] [facility] [address] [id number] [place] [address] October, [facility] [place] [facility] [address] [id number] [place] [address] October, [facility] [place] [facility] [address] [id number] [place] [address] October, [facility] [place] [facility] [address] [id number] [place] [address] Sep, [facility] [place] [facility] [address] [id number] [place] [address] Sep, [facility] [place] [facility] [address] [id number] [place] [address] Sep, [facility] [place] [facility] [address] [id number] [place] [address] 27 Aug, 2011 [facility] [address] [id number] [place] [address] 26 Aug, 2011 [facility] [place] [facility] [address] [id number] [place] [address] 15 Aug, 2011 [facility] [address] [id number] [place] [address] 15 Aug, 2011 [facility] [place] [facility] [address] [id number] [place] [address] 07 Aug, 2011 [facility] [address] [id number] [place] [address] 23 Jul, 2011 [facility] [place] [facility] [address] [id number] [place] [address] 16 Jul, 2011 [facility] [address] [id number] [place] [address] 13 Jul, 2011 [facility] [address] [id number] [place] [address] 09 Jul, 2011 [facility] [place] [facility] [address] [id number] [place] [address] 07 Jul, 2011 [facility] [address] [id number] [place] [address] 06 Jul, 2011 [facility] [place] [facility] [address] [id number] [place] [address] Jul, [facility] [address] [id number] [place] [address] Jul, [facility] [place] [facility] [address] [id number] [place] [address] Jun, [facility] [place] [facility] [address] [id number] [place] [address] Jun, [facility] [place] [facility] [address] [id number] [place] [address] May, [facility] [place] [facility] [address] [id number] [place] [address] May, [facility] [place] [facility] [address] [id number] [place] [address] May, [facility] [place] [facility] [address] [id number] [place] [address] May, [facility] [place] [facility] [address] [id number] [place] [address] Apr, [facility] [place] [facility] [address] [id number] [place] [address] Apr, [facility] [place] [facility] [address] [id number] [place] [address] Apr, [facility] [place] [facility] [address] [id number] [place] [address] Mar, [facility] [place] [facility] [address] [id number] [place] [address] Mar, [facility] [place] [facility] [address] [id number] [place] [address] Mar, [facility] [place] [facility] [address] [id number] [place] [address] Mar, [facility] [place] [facility] [address] [id number] [place] [address] Dec, [facility] [place] [facility] [address] [id number] [place] [address] October, [facility] [place] [facility] [address] [id number] [place] [address] May, [facility] [place] [facility] [address] [id number] [place] [address] May, [facility] [place] [facility] [address] [id number] [place] [address] May, [facility] [place] [facility] [address] [id number] [address] May, [facility] [id number] [address] Mar, [facility] [id number] [address] Mar, [facility] [id number], [place] [address] May, [facility] [id number] [address] May, [facility] [id number] [place] [address] May, [facility] [id number] [address] May, [facility] [id number], [place] [address] Apr, [facility] [id number] [address] Apr, [facility] [id number], [place] [address] October, IMMUNIZATIONS No Known Immunizations SOCIAL HISTORY Never Assessed REASON FOR VISIT EMR-[facility] [place] PLAN OF CARE VITAL SIGNS MEDICATIONS Unknown [...]
--- OUTSIDE RECORDS SUMMARY | 2019-01-13 10:17 | XMS REPORT ---
Author Author Migration, Doctor Organization [facility] Address Unknown Phone Unavailable Care Team Providers Care Batter Out Name Role Phone Migration, Doctor Unavailable Unavailable PROBLEMS Type Condition ICD9-CM Code [id number] Code Onset Dates Condition Status SNOMED Code Problem History of illicit drug use Z87.898 Active 128833793 Problem MRSA (methicillin resistant staph aureus) culture positive Z22.322 Active 542906465 Problem Snoring R06.83 Active 65382470 Problem Neuropathy G62.9 Active 813426913 Problem Essential hypertension I10 Active 86711406 Problem Fatigue R53.83 Active 75293509 Problem Panic disorder without agoraphobia F41.0 Active 50526639 Problem Upper respiratory tract infection, unspecified type J06.9 Active 01775501 Problem Varicose veins of both lower extremities I83.93 Active 19790128 Problem Other chronic pain G89.29 Active 84125021 Problem Mild persistent asthma without complication J45.30 Active 204651708 Problem On home oxygen therapy Z99.81 Active 234283915975 Problem Mild chronic obstructive pulmonary disease J44.9 Active 841152173 Problem Major depressive disorder, recurrent episode, moderate F33.1 Active 371551016 Problem 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 Active 45038022 Problem COPD exacerbation J44.1 Active 004260029 Problem Mood disorder F39 Active 27001732 Problem Dysthymic disorder F34.1 Active 53129942 Problem Psychotic disorder F29 Active 50975682 Problem Impaired circulation I99.9 Active 85433224 Problem Agoraphobia F40.00 Active 18326512 Problem COPD (chronic obstructive pulmonary disease) with chronic bronchitis J44.9 Active 131148052 Problem Exertional asthma J45.990 Active 60789008 Problem 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 [id number] [place] [address] Sep, Gastroenteritis K52.9 ; Low back pain M54.5 ; Other chronic pain G89.29 and Morbid obesity E66.01 [facility] [id number] [place] [address] Sep, Major depressive disorder, recurrent episode, moderate F33.1 ; Panic disorder without agoraphobia F41.0 and 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 [place] [id number] [place] [address] Sep, Panic disorder without agoraphobia F41.0 [facility] [id number] [place] [address] Sep, Panic disorder without agoraphobia F41.0 [facility] [id number] [place] [address] Aug, Panic disorder without agoraphobia F41.0 ; Major depressive disorder, recurrent episode, moderate F33.1 ; 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 ; Psychotic disorder F29 ; Tardive dyskinesia G24.01 and Morbid obesity E66.01 [facility] [id number] [place] [address] Aug, Dysthymic disorder F34.1 and Psychotic disorder F29 [facility] [id number] [place] [address] Aug, Encounter for Medicare annual wellness exam Z00.00 ; Morbid obesity E66.01 and 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 [place] [id number] [place] [address] Aug, Dysthymic disorder F34.1 and Psychotic disorder F29 [place] [id number] [place] [address] Aug, Neuropathy G62.9 ; Onychomycosis B35.1 and Xerosis of skin L85.3 [place] [id number] [place] [address] Jul, [place] [address] [address] Jul, Mood disorder F39 ; Wheezing R06.2 ; Choking, initial encounter T17.308A and Coughing R05 [place] [id number] [place] [address] Jul, Low back pain M54.5 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 [place] [id number] [place] [address] May, Low back pain M54.5 and Edema leg R60.0 [place] [id number] [place] [address] May, BMI 45.0-49.9, adult Z68.42 ; Well woman exam with routine gynecological exam Z01.419 and Breast cancer screening Z12.31 [place] [address] [address] 19 Apr, 2018 Arthritis M19.90 [place] [address] [address] 16 Apr, 2018 Arthritis M19.90 and Otalgia of both ears H92.03 [place] [address] [address] 28 Feb, 2018 [place] [address] [address] 28 Feb, 2018 Low back pain M54.5 ; Other chronic pain G89.29 ; Exertional asthma J45.990 and Encounter for immunization Z23 [place] [address] [address] 21 Feb, 2018 Skin fissures R23.4 ; Neuropathy G62.9 and Onychomycosis B35.1 [place] [address] [address] 05 Feb, 2018 Dysthymic disorder F34.1 [place] [address] [address] 04 Feb, 2018 [place] [address] [address] Jan, [place] [address] [address] Jan, Abrasion of right elbow, initial encounter S50.311A ; Abrasion, right knee, initial encounter S80.211A and Sprain of other ligament of right ankle, initial encounter S93.491A [place] [address] [address] Jan, [facility] [address] [place] [address] Jan, Injury of left ankle, initial encounter S99.912A ; Fall down stairs, initial encounter W10.8XXA and BMI 45.0-49.9, adult Z68.42 [place] [id number] [place] [address] Jan, COPD exacerbation J44.1 [place] [address] [address] Jan, Dysfunction of both eustachian 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 [place] [address] [address] Jan, Bronchitis J40 and Acute suppurative otitis media of left ear without spontaneous rupture of tympanic membrane, recurrence not specified H66.002 [place] [id number] [place] [address] Jan, [place] [address] [address] Jan, Bronchitis J40 and BMI 40.0-44.9, adult Z68.41 [place] [id number] [place] [address] Jan, [place] [id number] [place] [address] Dec, Gastric pain R10.9 [place] [address] [address] Dec, [place] [id number] [place] [address] Dec, History of illicit drug use Z87.898 ; Neuropathy G62.9 ; COPD (chronic obstructive pulmonary disease) with chronic bronchitis J44.9 and Acute pain of right knee M25.561 [place] [id number] [place] [address] Nov, [place] [address] [place] [id number] [place] [address] 15 Nov, 2017 Onychomycosis B35.1 and Contusion of left foot, subsequent encounter S90.32XD [address] [address] 13 Nov, 2017 COPD exacerbation J44.[address] [address] Sep, [address] [address] Sep, Dysthymic disorder F34.1 ; Tobacco abuse Z72.0 ; Pain in right knee M25.561 ; Pain in left knee M25.562 ; Other chronic pain G89.29 and BMI 40.0- 44.9, adult Z68.[address] [address] Aug, Major depressive disorder, recurrent episode, moderate F33.1 and 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 [address] Aug, Dysthymic disorder F34.1 ; Non-pressure chronic ulcer of left thigh, unspecified ulcer stage L97.129 ; Tobacco abuse Z72.0 ; Mild chronic obstructive pulmonary disease J44.9 and Forgetfulness R68.[address] [address] Aug, Onychomycosis B35.1 ; Fissure in skin of foot R23.4 and Foot callus L84 [facility] [place] [id number] [place] [address] Jul, Right medial knee pain M25.561 ; Upper respiratory tract infection, unspecified type J06.9 and BMI 40.0-44.9, adult Z68.41 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 [facility] [id number] [place] [address] Jan, Onychomycosis B35.1 and Neuropathy G62.9 [facility] [id number] [place] [address] Dec, [facility] [id number] [place] [address] Dec, [facility] [id number] [place] [address] Nov, [facility] [id number] [place] [address] Aug, [facility] [address] [id number] [address] Aug, [facility] [id number] [place] [address] Jul, [facility] [address] [place] [address] Jul, [facility] [id number] [place] [address] Jul, Decubitus ulcer of left thigh, stage 2 L89.892 [facility] [address] [address] Jul, Decubitus ulcer of left thigh, stage 2 L89.892 [facility] [address] [address] 17 Jul, 2016 [facility] [address] [place] [address] 15 Jul, 2016 Decubitus ulcer of left thigh, stage 2 L89.892 [facility] [address] [place] [address] 14 Jul, 2016 [facility] [address] [place] [address] 13 Jul, 2016 Cellulitis of other specified site L03.818 ; Illicit drug use F19.90 and Decubitus ulcer of left thigh, stage 2 L89.892 [facility] [address] [place] [address] 08 Jul, 2016 [facility] [id number] [place] [address] 06 Jul, 2016 Cellulitis of right breast N61.0 [facility] [address] [place] [address] Jun, [facility] [id number] [place] [address] Jun, [facility] [address] [place] [address] Jun, Wheezing R06.2 and Arthralgia, unspecified joint M25.50 [facility] [address] [address] May, [facility] [id number] [place] [address] May, [facility] [address], [place] [address] May, [facility] [address] [place] [address] May, Shortness of breath R06.02 [facility] [address], [place] [address] 02 May, 2016 Onychomycosis B35.1 and Fissure in skin of foot R23.4 [facility] [address] [address] 28 Apr, 2016 [facility] [id number] [place] [address] 18 Apr, 2016 Dizziness R42 [facility] [id number] [place] [address] 14 Apr, 2016 Shortness of breath R06.02 ; Essential hypertension I10 ; Dizziness R42 and On home oxygen therapy Z99.81 [facility] [id number] [place] [address] Apr, [facility] [id number] [place] [address] Apr, [facility] [id number] [place] [address] Apr, [facility] [id number] [place] [address] Apr, [facility] [id number] [place] [address] Apr, [facility] [id number] [place] [address] Apr, [facility] [id number] [place] [address] Apr, [facility] [id number] [place] [address] Mar, Mild chronic obstructive pulmonary disease J44.9 [facility] [id number] [place] [address] Mar, [facility] [address] [place] [address] [place] [address] Mar, Epigastric pain R10.13 ; Low back pain M54.5 ; Other chronic pain G89.29 and Breast cancer screening Z12.39 [place] [id number] [place] [address] Mar, [place] [address] [id number] [place] [address] Mar, [place] [address] [id number] [place] [address] Feb, [place] [address] [address] Feb, [place] [id number] [place] [address] Feb, Fissure in skin of foot R23.4 and Onychomycosis B35.1 [place] [id number] [place] [address] Jan, Agoraphobia F40.00 [place] [address] [id number] [place] [address] Dec, Agoraphobia F40.00 [place] [id number] [place] [address] Dec, Mild persistent asthma without complication J45.30 ; Dysthymic disorder F34.1 and Upper respiratory tract infection, unspecified type J06.9 [place] [id number] [place] [address] Nov, Agoraphobia F40.00 [place] [id number] [place] [address] October, Agoraphobia F40.00 [place] [id number] [place] [address] Sep, Panic disorder without agoraphobia F41.0 ; Agoraphobia F40.00 and Dysthymic disorder F34.1 [place] [id number] [place] [address] Sep, Panic attacks F41.0 [facility] [id number] [place] [address] Sep, [facility] [id number] [place] [address] Sep, Panic disorder without agoraphobia F41.0 ; Varicose veins of both lower extremities I83.93 and Fatigue R53.83 [place] [address] [place] [id number] [place] [address] Sep, Fatigue R53.83 [place] [address] [place] [id number] [place] [address] Sep, [place] [address] [place] [id number] [place] [address] Aug, [place] [address] [place] [id number] [place] [address] Aug, [place] [address] [id number] [place] [address] Aug, Panic disorder without agoraphobia F41.0 ; Agoraphobia F40.00 and Dysthymic disorder F34.1 [place] [address] [place] [id number] [place] [address] Aug, 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 [place] [address] [place] [id number] [place] [address] Aug, Shortness of breath R06.02 ; Panic attacks F41.0 ; COPD (chronic obstructive pulmonary disease) J44.9 ; Tobacco abuse Z72.0 ; Family history of diabetes mellitus Z83.3 and Weight gain R63.5 [place] [address] [place] [id number] [place] [address] Aug, [facility] [id number] [place] [address] Jul, [facility] [address] [address] Jun, Onychomycosis B35.1 ; Neuropathy G62.9 and Impaired circulation I99.9 [place] [address] [address] Mar, Fissure in skin of foot R23.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 [place] [address] [place] [id number] [place] [address] Feb, Family history of coronary arteriosclerosis V17.3 [place] [address] [place] [id number] [place] [address] Feb, Allergic rhinitis due to pollen 477.0 ; Unspecified breast screening V76.10 ; Anxiety 300.00 and Family history of coronary arteriosclerosis V17.3 [place] [address] [place] [id number] [place] [address] Jan, [place] [address] [place] [id number] [place] [address] Dec, [place] [address] [id number] [place] [address] Dec, Onychomycosis 110.1 and Skin fissures 709.8 [facility] [id number] [place] [address] Sep, [place] [address] [place] [id number] [place] [address] Sep, [facility] [id number] [place] [address] Aug, [facility] [id number] [place] [address] Aug, [facility] [address] [id number] [place] [address] Jul, [facility] [place] [facility] [address] [id number] [place] [address] Jul, [facility] [place] [facility] [address] [id number] [place] [address] Jun, [facility] [place] [facility] [address] [id number] [place] [address] Jun, [facility] [place] [facility] [address] [id number] [place] [address] Jun, [facility] [place] [facility] [address] [id number] [place] [address] Jun, [facility] [address] [id number] [place] [address] Jun, [facility] [address] [id number] [place] [address] May, [facility] [place] [facility] [address] [id number] [place] [address] May, [facility] [place] [facility] [address] [id number] [place] [address] May, [facility] [place] [facility] [address] [id number] [place] [address] May, [facility] [place] [facility] [address] [id number] [place] [address] May, [facility] [place] [facility] [address] [id number] [place] [address] May, [facility] [place] [facility] [address] [id number] [place] [address] May, [facility] [place] [facility] [address] [id number] [place] [address] May, [facility] [place] [facility] [address] [id number], [place] [address] Apr, [facility] [place] [facility] [address] [id number] [place] [address] Apr, [facility] [place] [facility] [address] [id number], [place] [address] Apr, [facility] [place] [facility] [address] [id number] [place] [address] Apr, [facility] [place] [facility] [address] [id number], [place] [address] Apr, [facility] [place] [facility] [address] [id number] [place] [address] Apr, [facility] [place] [facility] [address] [id number] [place] [address] Apr, [facility] [place] [facility] [address] [id number], [place] [address] Apr, [facility] [place] [facility] [address] [id number], [place] [address] Apr, [facility] [place] [facility] [address] [id number], [place] [address] Apr, [facility] [place] [facility] [address] [id number], [place] [address] Mar, [facility] [place] [facility] [address] [id number], [place] [address] Mar, [facility] [place] [facility] [address] [id number], [place] [address] Mar, [facility] [place] [facility] [address] [id number], [place] [address] Mar, [facility] [place] [facility] [address] [id number], [place] [address] Mar, [facility] [place] [facility] [address] [id number] [place] [address] Mar, [facility] [place] [facility] [address] [id number] [place] [address] Mar, 2013 [facility] [place] [facility] [address] [id number] [place] [address] Mar, [facility] [place] [facility] [address] [id number] [place] [address] 24 Mar, 2014 [facility] [place] [facility] [address] [id number] [place] [address] Mar, [facility] [place] [facility] [address] [id number] [place] [address] Mar, [facility] [place] [facility] [address] [id number] [place] [address] Mar, [facility] [place] [facility] [address] [id number] [place] [address] Mar, [facility] [place] [facility] [address] [id number] [place] [address] Mar, [facility] [place] [facility] [address] [id number] [place] [address] Mar, [facility] [place] [facility] [address] [id number] [place] [address] 20 Mar, 2014 [facility] [place] [facility] [address] [id number] [place] [address] 20 Mar, 2014 [facility] [place] [facility] [address] [id number] [place] [address] 16 Mar, 2013 [facility] [place] [facility] [address] [id number] [place] [address] 16 Mar, 2013 [facility] [place] [facility] [address] [id number] [place] [address] 15 Mar, 2014 [facility] [place] [facility] [address] [id number] [place] [address] 14 Mar, 2014 [facility] [place] [facility] [address] [id number] [place] [address] 14 Mar, 2013 [facility] [place] [facility] [address] [id number] [place] [address] 14 Mar, 2013 [facility] [place] [facility] [address] [id number] [place] [address] 14 Mar, 2014 [facility] [place] [facility] [address] [id number] [place] [address] Mar, 2013 [facility] [place] [facility] [address] [id number] [place] [address] Mar, 2013 [facility] [place] [facility] [address] [id number] [place] [address] Mar, [facility] [place] [facility] [address] [id number] [place] [address] Mar, [facility] [place] [facility] [address] [id number] [place] [address] 30 Feb, 2013 [facility] [place] [facility] [address] [id number] [place] [address] 30 Feb, 2013 [facility] [place] [facility] [address] [id number] [place] [address] 30 Feb, 2013 [facility] [place] [facility] [address] [id number] [place] [address] 30 Feb, 2013 [facility] [place] [facility] [address] [id number] [place] [address] 26 Sep, 2013 [facility] [place] [facility] [address] [id number] [address] 26 Sep, 2013 [facility] [place] [facility] [address] [id number] [place] [address] 09 Sep, 2013 [facility] [place] [facility] [address] [id number] [place] [address] 09 Sep, 2013 [facility] [place] [facility] [address] [id number] [place] [address] 03 Sep, 2013 [facility] [place] [facility] [address] [id number] [place] [address] Feb, 2013 [facility] [facility] [address] [id number] [place] [address] Feb, 2013 [facility] [place] [facility] [address] [id number] [place] [address] Feb, [facility] [place] [facility] [address] [id number] [place] [address] Jan, [facility] [place] [facility] [address] [id number] [place] [address] Jan, [facility] [place] [facility] [address] [id number] [place] [address] Jan, [facility] [place] [facility] [address] [id number] [place] [address] Jan, [facility] [place] [facility] [address] [id number] [place] [address] Jan, [facility] [place] [facility] [address] [id number] [place] [address] Jan, [facility] [place] [facility] [address] [id number] [place] [address] Jan, [facility] [place] [facility] [address] [id number] [place] [address] Jan, [facility] [place] [facility] [address] [id number] [place] [address] Jan, [facility] [place] [facility] [address] [id number] [place] [address] Jan, [facility] [place] [facility] [address] [id number] [place] [address] Jan, [facility] [place] [facility] [address] [id number] [place] [address] Jan, [facility] [place] [facility] [address] [id number] [place] [address] Jan, [facility] [place] [facility] [address] [id number] [facility] [place] [address] Dec, [facility] [place] [address] [id number] [place] [address] Dec, [facility] [place] [facility] [address] [id number] [place] [address] Dec, [facility] [place] [facility] [address] [id number] [place] [address] Dec, [facility] [place] [facility] [address] [id number] [place] [address] Dec, [facility] [place] [facility] [address] [id number] [place] [address] Dec, [facility] [place] [facility] [address] [id number] [place] [address] Dec, [facility] [place] [facility] [address] [id number] [place] [address] Dec, [facility] [place] [facility] [address] [id number] [place] [address] Dec, [facility] [place] [facility] [address] [id number] [place] [address] Dec, [facility] [place] [facility] [address] [id number] [place] [address] Dec, [facility] [place] [facility] [address] [id number] [place] [address] Dec, [facility] [place] [facility] [address] [id number] [place] [address] Dec, [facility] [place] [facility] [address] [id number] [place] [address] Dec, [facility] [place] [facility] [address] [id number] [place] [address] Dec, [facility] [place] [facility] [address] [id number] [place] [address] Dec, [facility] [place] [facility] [address] [id number] [place] [address] Dec, [facility] [place] [facility] [address] [id number] [place] [address] Dec, [facility] [place] [facility] [address] [id number] [place] [address] Nov, [facility] [place] [facility] [address] [id number] [place] [address] Nov, [facility] [place] [address] [id number] [place] [address] Nov, [facility] [place] [facility] [address] [id number] [place] [address] Nov, [facility] [place] [facility] [address] [id number] [place] [address] Nov, [facility] [place] [address] [id number] [place] [address] Nov, [facility] [place] [facility] [address] [id number] [place] [address] Nov, [facility] [place] [facility] [address] [id number] [place] [address] Nov, [facility] [address] [id number], [place] [address] Nov, [facility] [address] [id number], [place] [address] Nov, [facility] [address] [id number] [place] [address] Nov, [facility] [address] [id number] [place] [address] Nov, [facility] [address] [id number] [place] [address] Nov, [facility] [address] [id number] [place] [address] Nov, [facility] [address] [id number] [place] [address] Nov, [facility] [address] [id number] [place] [address] Nov, [facility] [address] [id number] [place] [address] Nov, [facility] [address] [id number] [place] [address] Nov, [facility] [address] [id number] [place] [address] Nov, [facility] [address] [id number] [place] [address] Nov, [facility] [address] [id number] [place] [address] October, [facility] [address] [id number] [place] [address] October, [facility] [address] [id number] [place] [address] October, [facility] [address] [id number] [place] [address] October, [facility] [place] [facility] [address] [id number] [place] [address] Sep, [facility] [address] [id number] [place] [address] Sep, [facility] [address] [id number] [place] [address] Sep, [facility] [address] [id number] [place] [address] Sep, [facility] [address] [id number] [place] [address] Sep, [facility] [address] [id number] [place] [address] Sep, [facility] [address] [id number] [place] [address] Sep, [facility] [address] [id number] [place] [address] Sep, [facility] [address] [id number] [place] [address] Sep, [facility] [address] [id number] [place] [address] Aug, [facility] [address] [id number] [place] [address] Aug, [facility] [address] [id number] [place] [address] Aug, [facility] [address] [id number] [place] [address] Aug, [facility] [address] [id number] [place] [address] Aug, [facility] [address] [id number] [place] [address] Aug, [facility] [address] [id number] [place] [address] Aug, [facility] [address] [id number] [place] [address] Aug, [facility] [address] [id number] [place] [address] Jul, [facility] [address] [id number] [place] [address] Jul, [facility] [address] [id number] [place] [address] Jun, [facility] [address] [id number], [place] [address] Jun, [facility] [address] [id number] [place] [address] Jun, [facility] [address] [id number] [place] [address] Jun, [facility] [address] [id number] [place] [address] Jun, [facility] [address] [id number] [place] [address] Jun, [facility] [address] [id number] [place] [address] Jun, [facility] [address] [id number] [place] [address] Jun, [facility] [address] [id number] [place] [address] Jun, [facility] [address] [id number] [place] [address] Jun, [facility] [address] [id number] [place] [address] Jun, [facility] [address] [facility] [id number] [place] [address] Jun, [facility] [address] [id number] [place] [address] May, [facility] [address] [id number] [place] [address] May, [facility] [address] [id number] [place] [address] May, [facility] [address] [id number] [place] [address] May, [facility] [address] [id number] [place] [address] May, [facility] [address] [id number] [place] [address] 31 May, 2013 [facility] [address] [id number] [place] [address] May, [facility] [address] [id number] [place] [address] May, [facility] [address] [id number] [place] [address] May, [facility] [address] [id number] [place] [address] May, [facility] [address] [id number] [place] [address] May, [facility] [address] [id number] [place] [address] May, [facility] [address] [id number] [place] [address] May, [facility] [address] [id number] [place] [address] Apr, [facility] [address] [id number] [place] [address] Apr, [facility] [address] [id number] [place] [address] Mar, [facility] [address] [id number] [place] [address] Mar, [facility] [address] [id number] [place] [address] 24 Feb, 2013 [facility] [address] [id number] [place] [address] 23 Feb, 2013 [facility] [address] [id number] [place] [address] 05 Feb, 2013 [facility] [address] [id number] [place] [address] Feb, [facility] [address] [id number] [place] [address] Jan, [facility] [address] [id number] [place] [address] Jan, [facility] [address] [id number] [place] [address] Jan, [facility] [address] [id number] [place] [address] Jan, [facility] [address] [id number] [place] [address] Jan, [facility] [place] [address] [id number] [place] [address] Jan, [facility] [address] [id number] [place] [address] Dec, [facility] [address] [id number] [place] [address] Dec, [facility] [address] [id number] [place] [address] Dec, [facility] [address] [id number] [place] [address] Dec, [facility] [address] [id number] [place] [address] Nov, [facility] [place] [facility] [address] [id number] [place] [address] October, [facility] [facility] [address] [id number] [place] [address] October, [facility] [facility] [address] [id number] [place] [address] October, [facility] [facility] [address] [id number] [place] [address] Sep, [facility] [facility] [address] [id number] [place] [address] Sep, [facility] [address] [id number] [place] [address] Jun, [facility] [address] [id number] [place] [address] Jun, [facility] [facility] [address] [id number] [place] [address] Jun, [facility] [address] [id number] [place] [address] Apr, [facility] [facility] [address] [id number] [place] [address] Apr, [facility] [facility] [address] [id number] [place] [address] Apr, [facility] [place] [facility] [address] [id number] [place] [address] Apr, [facility] [place] [facility] [address] [id number] [place] [address] Mar, [facility] [place] [facility] [address] [id number] [place] [address] Mar, [facility] [place] [facility] [address] [id number] [place] [address] Mar, [facility] [place] [facility] [address] [id number] [place] [address] Mar, [facility] [place] [facility] [address] [id number] [place] [address] 29 Feb, 2012 [facility] [place] [facility] [address] [id number] [place] [address] 27 Feb, 2012 [facility] [facility] [address] [id number] [place] [address] Feb, [facility] [place] [facility] [address] [id number] [place] [address] Jan, [facility] [place] [facility] [address] [id number] [place] [address] Jan, [facility] [place] [facility] [address] [id number] [place] [address] Jan, [facility] [place] [facility] [address] [id number] [place] [address] Jan, [facility] [place] [facility] [address] [id number] [place] [address] Dec, [facility] [place] [facility] [address] [id number] [place] [address] Dec, [facility] [place] [facility] [address] [id number] [place] [address] Nov, [facility] [place] [facility] [address] [id number] [place] [address] Nov, [facility] [place] [facility] [address] [id number] [place] [address] October, [facility] [place] [facility] [address] [id number] [place] [address] October, [facility] [place] [facility] [address] [id number] [place] [address] October, [facility] [address] [id number] [place] [address] Sep, [facility] [place] [facility] [address] [id number] [place] [address] Sep, [facility] [place] [facility] [address] [id number] [place] [address] Sep, [facility] [place] [facility] [address] [id number] [place] [address] Aug, [facility] [place] [facility] [address] [id number] [place] [address] Aug, [facility] [place] [facility] [address] [id number] [place] [address] 15 Aug, 2011 [facility] [address] [id number] [place] [address] 15 Aug, 2011 [facility] [address] [id number] [place] [address] 07 Aug, 2011 [facility] [address] [id number] [place] [address] 23 Jul, 2011 [facility] [address] [id number] [place] [address] 16 Jul, 2011 [facility] [address] [id number] [place] [address] 13 Jul, 2011 [facility] [address] [id number] [place] [address] 09 Jul, 2011 [facility] [address] [facility] [id number] [place] [address] 07 Jul, 2011 [facility] [address] [id number] [place] [address] 06 Jul, 2011 [facility] [address] [id number] [place] [address] Jul, [facility] [address] [facility] [id number] [place] [address] Jul, [facility] [address] [facility] [id number] [place] [address] Jun, [facility] [address] [id number] [place] [address] Jun, [facility] [address] [id number] [place] [address] May, [facility] [place] [facility] [address] [id number] [place] [address] May, [facility] [address] [facility] [id number], [place] [address] May, [facility] [place] [facility] [address] [id number] [place] [address] 08 May, 2011 [facility] [place] [facility] [address] [id number] [place] [address] 30 Apr, 2011 [facility] [place] [facility] [address] [id number] [place] [address] Apr, [facility] [place] [facility] [address] [id number] [place] [address] Apr, [facility] [place] [facility] [address] [id number] [place] [address] Mar, [facility] [place] [facility] [address] [id number] [place] [address] Mar, [facility] [place] [facility] [address] [id number] [place] [address] Mar, [facility] [place] [facility] [address] [id number] [place] [address] Mar, [facility] [place] [facility] [address] [id number] [place] [address] Dec, [facility] [place] [facility] [address] [id number] [place] [address] October, [facility] [place] [facility] [address] [id number] [place] [address] May, [facility] [place] [facility] [address] [id number] [place] [address] May, [facility] [place] [facility] [address] [id number] [place] [address] May, [facility] [place] [facility] [address] [id number] [place] [address] 06 May, 2010 [facility] [place] [facility] [address] [id number] [place] [address] 26 Mar, 2010 [facility] [place] [facility] [address] [id number], [place] [address] Mar, [facility] [address] [id number], [place] [address] May, [facility] [address] [id number], [place] [address] May, [facility] [address] [id number], [place] [address] May, [facility] [address] [id number], [place] [address] May, [facility] [address] [id number], [place] [address] Apr, [facility] [id number], [place] [address] Apr, [facility] [address] [id number], [place] [address] October, IMMUNIZATIONS No Known Immunizations SOCIAL HISTORY Never Assessed REASON FOR VISIT [facility] PLAN OF CARE [...]
--- OUTSIDE RECORDS SUMMARY | 2019-01-13 10:18 | XMS REPORT ---
Author Author Migration, Doctor Organization [facility] Address Unknown Phone Unavailable Care Team Providers [employer] Name Role Phone Migration, Doctor Unavailable Unavailable PROBLEMS Type Condition ICD9-CM Code KUG75-IC Code Onset Dates Condition Status SNOMED Code Problem History of illicit drug use Z87.898 Active 805052254 Problem MRSA (methicillin resistant staph aureus) culture positive Z22.322 Active 699021607 Problem Snoring R06.83 Active 22511765 Problem Neuropathy G62.9 Active 347108626 Problem Essential hypertension I10 Active 98472581 Problem Fatigue R53.83 Active 54228147 Problem Panic disorder without agoraphobia F41.0 Active 78156880 Problem Upper respiratory tract infection, unspecified type J06.9 Active 48273636 Problem Varicose veins of both lower extremities I83.93 Active 10328327 Problem Other chronic pain G89.29 Active 66350184 Problem Mild persistent asthma without complication J45.30 Active 866480507 Problem On home oxygen therapy Z99.81 Active 586841515866 Problem Mild chronic obstructive pulmonary disease J44.9 Active 719417032 Problem Major depressive disorder, recurrent episode, moderate F33.1 Active 606779532 Problem 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 Active 83670381 Problem COPD exacerbation J44.1 Active 845655829 Problem Mood disorder F39 Active 69866270 Problem Dysthymic disorder F34.1 Active 00754590 Problem Psychotic disorder F29 Active 83111776 Problem Impaired circulation I99.9 Active 05304526 Problem Agoraphobia F40.00 Active 53187633 Problem COPD (chronic obstructive pulmonary disease) with chronic bronchitis J44.9 Active 011186478 Problem Exertional asthma J45.990 Active 57631984 Problem 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 674502140 Problem Arthritis M19.90 Active 5401148 ALLERGIES No Information ENCOUNTERS Encounter Location Date Diagnosis [facility] [address] [facility] [id number] [address] Nov, [facility] [id number] [place] [address] October, [facility] [id number] [place] [address] Sep, [facility] [id number] [place] [address] Sep, [facility] [id number] [place] [address] Sep, Gastroenteritis K52.9 ; Low back pain M54.5 ; Other chronic pain G89.29 and Morbid obesity E66.01 [facility] [id number] [place] [address] Sep, Major depressive disorder, recurrent episode, moderate F33.1 ; Panic disorder without agoraphobia F41.0 and 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 [place] [place] [id number] [place] [address] Sep, Panic disorder without agoraphobia F41.0 [facility] [id number] [place] [address] Sep, Panic disorder without agoraphobia F41.0 [facility] [id number] [place] [address] Aug, Panic disorder without agoraphobia F41.0 ; Major depressive disorder, recurrent episode, moderate F33.1 ; 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 ; Psychotic disorder F29 ; Tardive dyskinesia G24.01 and Morbid obesity E66.01 [facility] [id number] [place] [address] Aug, Dysthymic disorder F34.1 and Psychotic disorder F29 [facility] [id number] [place] [address] Aug, Encounter for Medicare annual wellness exam Z00.00 ; Morbid obesity E66.01 and 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 [place] [id number] [place] [id number] [place] [address] Aug, Dysthymic disorder F34.1 and Psychotic disorder F29 [facility] [place] [address] [id number] [place] [address] Aug, Neuropathy G62.9 ; Onychomycosis B35.1 and Xerosis of skin L85.3 [facility] [place] [address] [place] [id number] [place] [address] Jul, [place] [address] [address] Jul, Mood disorder F39 ; Wheezing R06.2 ; Choking, initial encounter T17.308A and Coughing R05 [facility] [place] [id number] [place] [address] Jul, Low back pain M54.5 [facility] [id number] [place] [address] Jun, Flu-like symptoms R68.89 ; BMI 45.0-49.9, adult Z68.42 ; COPD exacerbation J44.1 and Acute bronchitis J20.9 [facility] [place] [id number] [place] [address] Jun, [place] [place] [id number] [place] [address] May, [facility] [id number] [place] [address] May, Onychomycosis B35.1 and 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 [place] [id number] [place] [address] May, Low back pain M54.5 and Edema leg R60.0 [place] [address] [place] [id number] [place] [address] May, BMI 45.0-49.9, adult Z68.42 ; Well woman exam with routine gynecological exam Z01.419 and Breast cancer screening Z12.31 [place] [address] [address] 19 Apr, 2018 Arthritis M19.90 [place] [address] [address] 16 Apr, 2018 Arthritis M19.90 and Otalgia of both ears H92.03 [place] [address] [address] 28 Feb, 2018 [place] [address] [address] 28 Feb, 2018 Low back pain M54.5 ; Other chronic pain G89.29 ; Exertional asthma J45.990 and Encounter for immunization Z23 [place] [address] [address] 21 Feb, 2018 Skin fissures R23.4 ; Neuropathy G62.9 and Onychomycosis B35.1 [place] [address] [address] 05 Feb, 2018 Dysthymic disorder F34.1 [place] [address] [address] 04 Feb, 2018 [place] [address] [address] Jan, [place] [address] [address] Jan, Abrasion of right elbow, initial encounter S50.311A ; Abrasion, right knee, initial encounter S80.211A and Sprain of other ligament of right ankle, initial encounter S93.491A [place] [address] [address] Jan, [facility] [address] [place] [address] Jan, Injury of left ankle, initial encounter S99.912A ; Fall down stairs, initial encounter W10.8XXA and BMI 45.0-49.9, adult Z68.42 [facility] [place] [address] [place] [id number] [place] [address] Jan, COPD exacerbation J44.1 [place] [address] [address] Jan, Dysfunction of both eustachian 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 [place] [address] [address] Jan, Bronchitis J40 and Acute suppurative otitis media of left ear without spontaneous rupture of tympanic membrane, recurrence not specified H66.002 [facility] [place] [address] [place] [id number] [place] [address] Jan, [place] [address] [address] Jan, Bronchitis J40 and BMI 40.0-44.9, adult Z68.41 [facility] [place] [address] [place] [id number] [place] [address] Jan, [facility] [place] [id number] [place] [address] Dec, Gastric pain R10.9 [facility] [place] [address] [address] Dec, [facility] [place] [address] [id number] [place] [address] Dec, History of illicit drug use Z87.898 ; Neuropathy G62.9 ; COPD (chronic obstructive pulmonary disease) with chronic bronchitis J44.9 and Acute pain of right knee M25.561 [facility] [place] [id number] [place] [address] Nov, [place] [address] [place] [id number] [place] [address] 15 Nov, 2017 Onychomycosis B35.1 and Contusion of left foot, subsequent encounter S90.32XD [address] [address] 13 Nov, 2017 COPD exacerbation J44.[address] [address] Sep, [address] [address] Sep, Dysthymic disorder F34.1 ; Tobacco abuse Z72.0 ; Pain in right knee M25.561 ; Pain in left knee M25.562 ; Other chronic pain G89.29 and BMI 40.0- 44.9, adult Z68.[address] [address] Aug, Major depressive disorder, recurrent episode, moderate F33.1 and 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 [address] Aug, Dysthymic disorder F34.1 ; Non-pressure chronic ulcer of left thigh, unspecified ulcer stage L97.129 ; Tobacco abuse Z72.0 ; Mild chronic obstructive pulmonary disease J44.9 and Forgetfulness R68.[address] [address] Aug, Onychomycosis B35.1 ; Fissure in skin of foot R23.4 and Foot callus L84 [facility] [place] [id number] [place] [address] Jul, Right medial knee pain M25.561 ; Upper respiratory tract infection, unspecified type J06.9 and BMI 40.0-44.9, adult Z68.41 [facility] [place] [id number] [place] [address] Jul, Nausea and vomiting, intractability of vomiting not specified, unspecified vomiting type R11.2 ; Left ear pain H92.02 and Gastric pain R10.9 [facility] [id number] [place] [address] Apr, Encounter for immunization Z23 [facility] [id number] [place] [address] Apr, Onychomycosis B35.1 ; Xerosis of skin L85.3 ; Neuropathy G62.9 and 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 [facility] [id number] [place] [address] Jan, Onychomycosis B35.1 and Neuropathy G62.9 [facility] [id number] [place] [address] Dec, [facility] [id number] [place] [address] Dec, [facility] [id number] [place] [address] Nov, [facility] [id number] [place] [address] Aug, [facility] [id number] [address] Aug, [facility] [id number] [place] [address] Jul, [facility] [id number] [place] [address] Jul, [facility] [id number] [place] [address] Jul, Decubitus ulcer of left thigh, stage 2 L89.892 [facility] [address] [address] Jul, Decubitus ulcer of left thigh, stage 2 L89.892 [facility] [address] [address] 17 Jul, 2016 [facility] [id number] [place] [address] 15 Jul, 2016 Decubitus ulcer of left thigh, stage 2 L89.892 [facility] [id number] [place] [address] 14 Jul, 2016 [facility] [id number] [place] [address] 13 Jul, 2016 Cellulitis of other specified site L03.818 ; Illicit drug use F19.90 and Decubitus ulcer of left thigh, stage 2 L89.892 [facility] [id number] [place] [address] 08 Jul, 2016 [facility] [id number] [place] [address] 06 Jul, 2016 Cellulitis of right breast N61.0 [facility] [id number] [place] [address] Jun, [facility] [id number] [place] [address] Jun, [facility] [id number] [place] [address] Jun, Wheezing R06.2 and Arthralgia, unspecified joint M25.50 [facility] [address] [address] May, [facility] [id number] [place] [address] May, [facility] [address] [address] May, [facility] [id number] [place] [address] May, Shortness of breath R06.02 [facility] [address] [address] 02 May, 2016 Onychomycosis B35.1 and Fissure in skin of foot R23.4 [facility] [address] [address] 28 Apr, 2016 [facility] [id number] [place] [address] 18 Apr, 2016 Dizziness R42 [facility] [id number] [place] [address] 14 Apr, 2016 Shortness of breath R06.02 ; Essential hypertension I10 ; Dizziness R42 and On home oxygen therapy Z99.81 [facility] [id number] [place] [address] Apr, [facility] [id number] [place] [address] Apr, [facility] [id number] [place] [address] Apr, [facility] [id number] [place] [address] Apr, [facility] [id number] [place] [address] Apr, [facility] [id number] [place] [address] Apr, [facility] [id number] [place] [address] Apr, [facility] [id number] [place] [address] Mar, Mild chronic obstructive pulmonary disease J44.9 [facility] [id number] [place] [address] Mar, [facility] [address] [id number] [place] [address] Mar, Epigastric pain R10.13 ; Low back pain M54.5 ; Other chronic pain G89.29 and Breast cancer screening Z12.39 [place] [address] [place] [place] [id number] [place] [address] Mar, [place] [address] [id number] [place] [address] Mar, [place] [address] [place] [id number] [place] [address] Feb, [place] [address] [address] Feb, [place] [address] [place] [place] [id number] [place] [address] Feb, Fissure in skin of foot R23.4 and Onychomycosis B35.1 [place] [address] [place] [id number] [place] [address] Jan, Agoraphobia F40.00 [place] [address] [place] [id number] [place] [address] Dec, Agoraphobia F40.00 [place] [address] [place] [place] [id number] [place] [address] Dec, Mild persistent asthma without complication J45.30 ; Dysthymic disorder F34.1 and Upper respiratory tract infection, unspecified type J06.9 [place] [address] [place] [id number] [place] [address] Nov, Agoraphobia F40.00 [place] [address] [place] [place] [id number] [place] [address] October, Agoraphobia F40.00 [place] [address] [place] [id number] [place] [address] Sep, Panic disorder without agoraphobia F41.0 ; Agoraphobia F40.00 and Dysthymic disorder F34.1 [facility] [id number] [place] [address] Sep, Panic attacks F41.0 [facility] [address] [place] [id number] [place] [address] Sep, [facility] [id number] [place] [address] Sep, Panic disorder without agoraphobia F41.0 ; Varicose veins of both lower extremities I83.93 and Fatigue R53.83 [place] [address] [place] [id number] [place] [address] Sep, Fatigue R53.83 [place] [address] [place] [id number] [place] [address] Sep, [place] [address] [place] [id number] [place] [address] Aug, [place] [address] [place] [place] [id number] [place] [address] Aug, [place] [address] [place] [place] [id number] [place] [address] Aug, 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 [place] [address] [place] [id number] [place] [address] Aug, Panic disorder without agoraphobia F41.0 ; Agoraphobia F40.00 and Dysthymic disorder F34.1 [place] [address] [place] [id number] [place] [address] Aug, Shortness of breath R06.02 ; Panic attacks F41.0 ; COPD (chronic obstructive pulmonary disease) J44.9 ; Tobacco abuse Z72.0 ; Family history of diabetes mellitus Z83.3 and Weight gain R63.5 [place] [address] [place] [id number] [place] [address] Aug, [facility] [id number] [place] [address] Jul, [facility] [address] [address] Jun, Onychomycosis B35.1 ; Neuropathy G62.9 and Impaired circulation I99.9 [place] [address] [address] Mar, Fissure in skin of foot R23.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 [place] [address] [place] [id number] [place] [address] Feb, Family history of coronary arteriosclerosis V17.3 [place] [address] [place] [id number] [place] [address] Feb, Allergic rhinitis due to pollen 477.0 ; Unspecified breast screening V76.10 ; Anxiety 300.00 and Family history of coronary arteriosclerosis V17.3 [place] [address] [place] [id number] [place] [address] Jan, [place] [address] [place] [id number] [place] [address] Dec, [place] [address] [place] [id number] [place] [address] Dec, Onychomycosis 110.1 and Skin fissures 709.8 [facility] [address] [place] [place] [id number] [place] [address] Sep, [place] [address] [place] [id number] [place] [address] Sep, [facility] [address] [place] [place] [id number] [place] [address] Aug, [facility] [address] [place] [id number] [place] [address] Aug, [facility] [address] [id number] [place] [address] Jul, [facility] [place] [facility] [address] [id number] [place] [address] Jul, [facility] [place] [facility] [address] [id number] [place] [address] Jun, [facility] [place] [facility] [address] [id number] [place] [address] Jun, [facility] [place] [facility] [address] [id number] [place] [address] Jun, [facility] [place] [facility] [address] [id number] [place] [address] Jun, [facility] [address] [id number] [place] [address] Jun, [facility] [address] [id number] [place] [address] May, [facility] [place] [facility] [address] [id number] [place] [address] May, [facility] [place] [facility] [address] [id number] [place] [address] May, [facility] [place] [facility] [address] [id number] [place] [address] May, [facility] [place] [facility] [address] [id number] [place] [address] May, [facility] [place] [facility] [address] [id number] [place] [address] May, [facility] [place] [facility] [address] [id number] [place] [address] May, [facility] [place] [facility] [address] [id number] [place] [address] May, [facility] [place] [facility] [address] [id number], [place] [address] Apr, [facility] [place] [facility] [address] [id number] [place] [address] Apr, [facility] [place] [facility] [address] [id number], [place] [address] Apr, [facility] [place] [facility] [address] [id number] [place] [address] Apr, [facility] [place] [facility] [address] [id number], [place] [address] Apr, [facility] [place] [facility] [address] [id number] [place] [address] Apr, [facility] [place] [facility] [address] [id number] [place] [address] Apr, [facility] [place] [facility] [address] [id number], [place] [address] Apr, [facility] [place] [facility] [address] [id number], [place] [address] Apr, [facility] [place] [facility] [address] [id number], [place] [address] Apr, [facility] [place] [facility] [address] [id number], [place] [address] Mar, [facility] [place] [facility] [address] [id number], [place] [address] Mar, [facility] [place] [facility] [address] [id number], [place] [address] Mar, [facility] [place] [facility] [address] [id number], [place] [address] Mar, [facility] [place] [facility] [address] [id number], [place] [address] Mar, [facility] [place] [facility] [address] [id number] [place] [address] Mar, [facility] [place] [facility] [address] [id number] [place] [address] Mar, 2013 [facility] [place] [facility] [address] [id number] [place] [address] Mar, [facility] [place] [facility] [address] [id number] [place] [address] 24 Mar, 2014 [facility] [place] [facility] [address] [id number] [place] [address] Mar, [facility] [place] [facility] [address] [id number] [place] [address] Mar, [facility] [place] [facility] [address] [id number] [place] [address] Mar, [facility] [place] [facility] [address] [id number] [place] [address] Mar, [facility] [place] [facility] [address] [id number] [place] [address] Mar, [facility] [place] [facility] [address] [id number] [place] [address] Mar, [facility] [place] [facility] [address] [id number] [place] [address] 20 Mar, 2014 [facility] [place] [facility] [address] [id number] [place] [address] 20 Mar, 2014 [facility] [place] [facility] [address] [id number] [place] [address] 16 Mar, 2013 [facility] [place] [facility] [address] [id number] [place] [address] 16 Mar, 2013 [facility] [place] [facility] [address] [id number] [place] [address] 15 Mar, 2014 [facility] [place] [facility] [address] [id number] [place] [address] 14 Mar, 2014 [facility] [place] [facility] [address] [id number] [place] [address] 14 Mar, 2013 [facility] [place] [facility] [address] [id number] [place] [address] 14 Mar, 2013 [facility] [place] [facility] [address] [id number] [place] [address] 14 Mar, 2014 [facility] [place] [facility] [address] [id number] [place] [address] Mar, 2013 [facility] [place] [facility] [address] [id number] [place] [address] Mar, 2013 [facility] [place] [facility] [address] [id number] [place] [address] Mar, [facility] [place] [facility] [address] [id number] [place] [address] Mar, [facility] [place] [facility] [address] [id number] [place] [address] 30 Feb, 2013 [facility] [place] [facility] [address] [id number] [place] [address] 30 Feb, 2013 [facility] [place] [facility] [address] [id number] [place] [address] 30 Feb, 2013 [facility] [place] [facility] [address] [id number] [place] [address] 30 Feb, 2013 [facility] [place] [facility] [address] [id number] [place] [address] 26 Sep, 2013 [facility] [place] [facility] [address] [id number] [address] 26 Sep, 2013 [facility] [place] [facility] [address] [id number] [place] [address] 09 Sep, 2013 [facility] [place] [facility] [address] [id number] [place] [address] 09 Sep, 2013 [facility] [place] [facility] [address] [id number] [place] [address] 03 Sep, 2013 [facility] [place] [facility] [address] [id number] [place] [address] Feb, 2013 [facility] [place] [facility] [address] [id number] [place] [address] Feb, 2013 [facility] [place] [facility] [address] [id number] [place] [address] Feb, [facility] [place] [facility] [address] [id number] [place] [address] Jan, [facility] [place] [facility] [address] [id number] [place] [address] Jan, [facility] [place] [facility] [address] [id number] [place] [address] Jan, [facility] [place] [facility] [address] [id number] [place] [address] Jan, [facility] [place] [facility] [address] [id number] [place] [address] Jan, [facility] [place] [facility] [address] [id number] [place] [address] Jan, [facility] [place] [facility] [address] [id number] [place] [address] Jan, [facility] [place] [facility] [address] [id number] [place] [address] Jan, [facility] [place] [facility] [address] [id number] [place] [address] Jan, [facility] [place] [facility] [address] [id number] [place] [address] Jan, [facility] [place] [facility] [address] [id number] [place] [address] Jan, [facility] [place] [facility] [address] [id number] [place] [address] Jan, [facility] [place] [facility] [address] [id number] [place] [address] Jan, [facility] [place] [facility] [address] [id number] [facility] [address] Dec, [facility] [place] [facility] [address] [id number] [place] [address] Dec, [facility] [place] [facility] [address] [id number] [place] [address] Dec, [facility] [place] [facility] [address] [id number] [place] [address] Dec, [facility] [place] [facility] [address] [id number] [place] [address] Dec, [facility] [place] [facility] [address] [id number] [place] [address] Dec, [facility] [place] [facility] [address] [id number] [place] [address] Dec, [facility] [place] [facility] [address] [id number] [place] [address] Dec, [facility] [place] [facility] [address] [id number] [place] [address] Dec, [facility] [place] [facility] [address] [id number] [place] [address] Dec, [facility] [place] [facility] [address] [id number] [place] [address] Dec, [facility] [place] [facility] [address] [id number] [place] [address] Dec, [facility] [place] [facility] [address] [id number] [place] [address] Dec, [facility] [place] [facility] [address] [id number] [place] [address] Dec, [facility] [place] [facility] [address] [id number] [place] [address] Dec, [facility] [place] [facility] [address] [id number] [place] [address] Dec, [facility] [place] [facility] [address] [id number] [place] [address] Dec, [facility] [place] [facility] [address] [id number] [place] [address] Dec, [facility] [place] [facility] [address] [id number] [place] [address] Nov, [facility] [place] [facility] [address] [id number] [place] [address] Nov, [facility] [place] [facility] [address] [id number] [place] [address] Nov, [facility] [place] [facility] [address] [id number] [place] [address] Nov, [facility] [place] [facility] [address] [id number] [place] [address] Nov, [facility] [place] [facility] [address] [id number] [place] [address] Nov, [facility] [place] [facility] [address] [id number] [place] [address] Nov, [facility] [place] [facility] [address] [id number] [place] [address] Nov, [facility] [place] [facility] [address] [id number], [place] [address] Nov, [facility] [place] [facility] [address] [id number], [place] [address] Nov, [facility] [place] [facility] [address] [id number] [place] [address] Nov, [facility] [place] [facility] [address] [id number] [place] [address] Nov, [facility] [place] [facility] [address] [id number] [place] [address] Nov, [facility] [place] [facility] [address] [id number] [place] [address] Nov, [facility] [place] [facility] [address] [id number] [place] [address] Nov, [facility] [place] [facility] [address] [id number] [place] [address] Nov, [facility] [place] [facility] [address] [id number] [place] [address] Nov, [facility] [place] [facility] [address] [id number] [place] [address] Nov, [facility] [place] [facility] [address] [id number] [place] [address] Nov, [facility] [place] [facility] [address] [id number] [place] [address] Nov, [facility] [place] [facility] [address] [id number] [place] [address] October, [facility] [place] [facility] [address] [id number] [place] [address] October, [facility] [place] [facility] [address] [id number] [place] [address] October, [facility] [place] [facility] [address] [id number] [place] [address] October, [facility] [place] [facility] [address] [id number] [place] [address] Sep, [facility] [place] [facility] [address] [id number] [place] [address] Sep, [facility] [place] [facility] [address] [id number] [place] [address] Sep, [facility] [place] [facility] [address] [id number] [place] [address] Sep, [facility] [place] [facility] [address] [id number] [place] [address] Sep, [facility] [place] [facility] [address] [id number] [place] [address] Sep, [facility] [place] [facility] [address] [id number] [place] [address] Sep, [facility] [place] [facility] [address] [id number] [place] [address] Sep, [facility] [place] [facility] [address] [id number] [place] [address] Sep, [facility] [place] [facility] [address] [id number] [place] [address] Aug, [facility] [place] [facility] [address] [id number] [place] [address] Aug, [facility] [place] [facility] [address] [id number] [place] [address] Aug, [facility] [place] [facility] [address] [id number] [place] [address] Aug, [facility] [place] [facility] [address] [id number] [place] [address] Aug, [facility] [place] [facility] [address] [id number] [place] [address] Aug, [facility] [place] [facility] [address] [id number] [place] [address] Aug, [facility] [place] [facility] [address] [id number] [place] [address] Aug, [facility] [place] [facility] [address] [id number] [place] [address] Jul, [facility] [place] [facility] [address] [id number] [place] [address] Jul, [facility] [place] [facility] [address] [id number] [place] [address] Jun, [facility] [place] [facility] [address] [id number], [place] [address] Jun, [facility] [address] [id number] [place] [address] Jun, [facility] [place] [facility] [address] [id number] [place] [address] Jun, [facility] [place] [facility] [address] [id number] [place] [address] Jun, [facility] [place] [facility] [address] [id number] [place] [address] Jun, [facility] [place] [facility] [address] [id number] [place] [address] Jun, [facility] [place] [facility] [address] [id number] [place] [address] Jun, [facility] [place] [facility] [address] [id number] [place] [address] Jun, [facility] [place] [facility] [address] [id number] [place] [address] Jun, [facility] [place] [facility] [address] [id number] [place] [address] Jun, [facility] [place] [facility] [address] [facility] [id number] [place] [address] Jun, [facility] [place] [facility] [address] [id number] [place] [address] May, [facility] [place] [facility] [address] [id number] [place] [address] May, [facility] [place] [facility] [address] [id number] [place] [address] May, [facility] [place] [facility] [address] [id number] [place] [address] May, [facility] [place] [facility] [address] [id number] [place] [address] May, [facility] [place] [facility] [address] [id number] [place] [address] 31 May, 2013 [facility] [address] [id number] [place] [address] May, [facility] [place] [facility] [address] [id number] [place] [address] May, [facility] [place] [facility] [address] [id number] [place] [address] May, [facility] [place] [facility] [address] [id number] [place] [address] May, [facility] [place] [facility] [address] [id number] [place] [address] May, [facility] [place] [facility] [address] [id number] [place] [address] May, [facility] [place] [facility] [address] [id number] [place] [address] May, [facility] [place] [facility] [address] [id number] [place] [address] Apr, [facility] [place] [facility] [address] [id number] [place] [address] Apr, [facility] [place] [facility] [address] [id number] [place] [address] Mar, [facility] [place] [facility] [address] [id number] [place] [address] Mar, [facility] [place] [facility] [address] [id number] [place] [address] 24 Feb, 2013 [facility] [place] [facility] [address] [id number] [place] [address] 23 Feb, 2013 [facility] [place] [facility] [address] [id number] [place] [address] 05 Feb, 2013 [facility] [place] [facility] [address] [id number] [place] [address] Feb, [facility] [place] [facility] [address] [id number] [place] [address] Jan, [facility] [place] [facility] [address] [id number] [place] [address] Jan, [facility] [place] [facility] [address] [id number] [place] [address] Jan, [facility] [place] [facility] [address] [id number] [place] [address] Jan, [facility] [place] [facility] [address] [id number] [place] [address] Jan, [facility] [place] [facility] [address] [id number] [place] [address] Jan, [facility] [place] [facility] [address] [id number] [place] [address] Dec, [facility] [place] [facility] [address] [id number] [place] [address] Dec, [facility] [place] [facility] [address] [id number] [place] [address] Dec, [facility] [place] [facility] [address] [id number] [place] [address] Dec, [facility] [place] [facility] [address] [id number] [place] [address] Nov, [facility] [place] [facility] [address] [id number] [place] [address] October, [facility] [place] [facility] [address] [id number] [place] [address] October, [facility] [place] [facility] [address] [id number] [place] [address] October, [facility] [place] [facility] [address] [id number] [place] [address] Sep, [facility] [place] [facility] [address] [id number] [place] [address] Sep, [facility] [place] [facility] [address] [id number] [place] [address] Jun, [facility] [place] [facility] [address] [id number] [place] [address] Jun, [facility] [place] [facility] [address] [id number] [place] [address] Jun, [facility] [place] [facility] [address] [id number] [place] [address] Apr, [facility] [place] [facility] [address] [id number] [place] [address] Apr, [facility] [place] [facility] [address] [id number] [place] [address] Apr, [facility] [place] [facility] [address] [id number] [place] [address] Apr, [facility] [place] [facility] [address] [id number] [place] [address] Mar, [facility] [place] [facility] [address] [id number] [place] [address] Mar, [facility] [place] [facility] [address] [id number] [place] [address] Mar, [facility] [place] [facility] [address] [id number] [place] [address] Mar, [facility] [place] [facility] [address] [id number] [place] [address] 29 Feb, 2012 [facility] [place] [facility] [address] [id number] [place] [address] 27 Feb, 2012 [facility] [place] [facility] [address] [id number] [place] [address] Feb, [facility] [place] [facility] [address] [id number] [place] [address] Jan, [facility] [place] [facility] [address] [id number] [place] [address] Jan, [facility] [place] [facility] [address] [id number] [place] [address] Jan, [facility] [place] [facility] [address] [id number] [place] [address] Jan, [facility] [place] [facility] [address] [id number] [place] [address] Dec, [facility] [place] [facility] [address] [id number] [place] [address] Dec, [facility] [place] [facility] [address] [id number] [place] [address] Nov, [facility] [place] [facility] [address] [id number] [place] [address] Nov, [facility] [place] [facility] [address] [id number] [place] [address] October, [facility] [place] [facility] [address] [id number] [place] [address] October, [facility] [place] [facility] [address] [id number] [place] [address] October, [facility] [place] [facility] [address] [id number] [place] [address] Sep, [facility] [place] [facility] [address] [id number] [place] [address] Sep, [facility] [place] [facility] [address] [id number] [place] [address] Sep, [facility] [place] [facility] [address] [id number] [place] [address] Aug, [facility] [place] [facility] [address] [id number] [place] [address] Aug, [facility] [place] [facility] [address] [id number] [place] [address] 15 Aug, 2011 [facility] [address] [id number] [place] [address] 15 Aug, 2011 [facility] [address] [id number] [place] [address] 07 Aug, 2011 [facility] [address] [id number] [place] [address] 23 Jul, 2011 [facility] [address] [id number] [place] [address] 16 Jul, 2011 [facility] [address] [id number] [place] [address] 13 Jul, 2011 [facility] [address] [id number] [place] [address] 09 Jul, 2011 [facility] [address] [facility] [id number] [place] [address] 07 Jul, 2011 [facility] [address] [id number] [place] [address] 06 Jul, 2011 [facility] [address] [id number] [place] [address] Jul, [facility] [address] [facility] [id number] [place] [address] Jul, [facility] [address] [facility] [id number] [place] [address] Jun, [facility] [address] [id number] [place] [address] Jun, [facility] [address] [id number] [place] [address] May, [facility] [place] [facility] [address] [id number] [place] [address] May, [facility] [address] [facility] [id number], [place] [address] May, [facility] [place] [facility] [address] [id number] [place] [address] 08 May, 2011 [facility] [place] [facility] [address] [id number] [place] [address] 30 Apr, 2011 [facility] [place] [facility] [address] [id number] [place] [address] Apr, [facility] [place] [facility] [address] [id number] [place] [address] Apr, [facility] [place] [facility] [address] [id number] [place] [address] Mar, [facility] [place] [facility] [address] [id number] [place] [address] Mar, [facility] [place] [facility] [address] [id number] [place] [address] Mar, [facility] [place] [facility] [address] [id number] [place] [address] Mar, [facility] [place] [facility] [address] [id number] [place] [address] Dec, [facility] [place] [facility] [address] [id number] [place] [address] October, [facility] [place] [facility] [address] [id number] [place] [address] May, [facility] [place] [facility] [address] [id number] [place] [address] May, [facility] [place] [facility] [address] [id number] [place] [address] May, [facility] [place] [facility] [address] [id number] [place] [address] 06 May, 2010 [facility] [place] [facility] [address] [id number] [place] [address] 26 Mar, 2010 [facility] [place] [facility] [address] [id number], [place] [address] Mar, [facility] [address] [id number] [address] May, [facility] [address] [id number] [address] May, [facility] [address] [id number], [place] [address] May, [facility] [address] [id number] [address] May, [facility] [address] [id number], [place] [address] Apr, [facility] [id number], [place] [address] Apr, [facility] [address] [id number], [place] [address] October, IMMUNIZATIONS No Known Immunizations SOCIAL HISTORY Never Assessed REASON FOR VISIT [facility] [place]AN [place] CARE VITAL [...]
--- OUTSIDE RECORDS SUMMARY | 2019-01-13 10:19 | XMS REPORT ---
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 Name Role Phone Migration, Doctor Unavailable Unavailable PROBLEMS Type Condition ICD9-CM Code WDA20-WW Code Onset Dates Condition Status SNOMED Code Problem History of illicit drug use Z87.898 Active 981970810 Problem MRSA (methicillin resistant staph aureus) culture positive Z22.322 Active 737753881 Problem Snoring R06.83 Active 78847765 Problem Neuropathy G62.9 Active 203839192 Problem Essential hypertension I10 Active 35735298 Problem Fatigue R53.83 Active 18270560 Problem Panic disorder without agoraphobia F41.0 Active 46820208 Problem Upper respiratory tract infection, unspecified type J06.9 Active 18083424 Problem Varicose veins of both lower extremities I83.93 Active 02573549 Problem Other chronic pain G89.29 Active 00520714 Problem Mild persistent asthma without complication J45.30 Active 927508137 Problem On home oxygen therapy Z99.81 Active 174873581206 Problem Mild chronic obstructive pulmonary disease J44.9 Active 428404780 Problem Major depressive disorder, recurrent episode, moderate F33.1 Active 543486678 Problem 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 Active 40304271 Problem COPD exacerbation J44.1 Active 891281296 Problem Mood disorder F39 Active 54127991 Problem Dysthymic disorder F34.1 Active 73466656 Problem Psychotic disorder F29 Active 79382748 Problem Impaired circulation I99.9 Active 80314864 Problem Agoraphobia F40.00 Active 37226871 Problem COPD (chronic obstructive pulmonary disease) with chronic bronchitis J44.9 Active 836685133 Problem Exertional asthma J45.990 Active 03992473 Problem 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 753278333 Problem Arthritis M19.90 Active 5500557 ALLERGIES No Information ENCOUNTERS Encounter Location Date Diagnosis [facility] [address] [facility] [id number] [address] Nov, [facility] [id number] [place] [address] October, [facility] [id number] [place] [address] Sep, [facility] [id number] [place] [address] Sep, [facility] [id number] [place] [address] Sep, Gastroenteritis K52.9 ; Low back pain M54.5 ; Other chronic pain G89.29 and Morbid obesity E66.01 [facility] [id number] [place] [address] Sep, Major depressive disorder, recurrent episode, moderate F33.1 ; Panic disorder without agoraphobia F41.0 and 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 [place] [id number] [place] [address] Sep, Panic disorder without agoraphobia F41.0 [facility] [id number] [place] [address] Sep, Panic disorder without agoraphobia F41.0 [facility] [id number] [place] [address] Aug, Panic disorder without agoraphobia F41.0 ; Major depressive disorder, recurrent episode, moderate F33.1 ; 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 ; Psychotic disorder F29 ; Tardive dyskinesia G24.01 and Morbid obesity E66.01 [facility] [id number] [place] [address] Aug, Dysthymic disorder F34.1 and Psychotic disorder F29 [facility] [id number] [place] [address] Aug, Encounter for Medicare annual wellness exam Z00.00 ; Morbid obesity E66.01 and 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 [place] [id number] [place] [address] Aug, Dysthymic disorder F34.1 and Psychotic disorder F29 [place] [id number] [place] [address] Aug, Neuropathy G62.9 ; Onychomycosis B35.1 and Xerosis of skin L85.3 [place] [id number] [place] [address] Jul, [place] [address] [address] Jul, Mood disorder F39 ; Wheezing R06.2 ; Choking, initial encounter T17.308A and Coughing R05 [place] [id number] [place] [address] Jul, Low back pain M54.5 [facility] [id number] [place] [address] Jun, Flu-like symptoms R68.89 ; BMI 45.0-49.9, adult Z68.42 ; COPD exacerbation J44.1 and Acute bronchitis J20.9 [place] [id number] [place] [address] Jun, [place] [id number] [place] [address] May, [place] [id number] [place] [address] May, Onychomycosis B35.1 and 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 [place] [id number] [place] [address] May, Low back pain M54.5 and Edema leg R60.0 [place] [id number] [place] [address] May, BMI 45.0-49.9, adult Z68.42 ; Well woman exam with routine gynecological exam Z01.419 and Breast cancer screening Z12.31 [place] [address] [address] 19 Apr, 2018 Arthritis M19.90 [place] [address] [address] 16 Apr, 2018 Arthritis M19.90 and Otalgia of both ears H92.03 [place] [address] [address] 28 Feb, 2018 [place] [address] [address] 28 Feb, 2018 Low back pain M54.5 ; Other chronic pain G89.29 ; Exertional asthma J45.990 and Encounter for immunization Z23 [place] [address] [address] 21 Feb, 2018 Skin fissures R23.4 ; Neuropathy G62.9 and Onychomycosis B35.1 [place] [address] [address] 05 Feb, 2018 Dysthymic disorder F34.1 [place] [address] [address] 04 Feb, 2018 [place] [address] [address] Jan, [place] [address] [address] Jan, Abrasion of right elbow, initial encounter S50.311A ; Abrasion, right knee, initial encounter S80.211A and Sprain of other ligament of right ankle, initial encounter S93.491A [place] [address] [address] Jan, [facility] [address] [place] [address] Jan, Injury of left ankle, initial encounter S99.912A ; Fall down stairs, initial encounter W10.8XXA and BMI 45.0-49.9, adult Z68.42 [place] [id number] [place] [address] Jan, COPD exacerbation J44.1 [place] [address] [address] Jan, Dysfunction of both eustachian 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 [place] [address] [address] Jan, Bronchitis J40 and Acute suppurative otitis media of left ear without spontaneous rupture of tympanic membrane, recurrence not specified H66.002 [place] [id number] [place] [address] Jan, [place] [address] [address] Jan, Bronchitis J40 and BMI 40.0-44.9, adult Z68.41 [place] [id number] [place] [address] Jan, [place] [id number] [place] [address] Dec, Gastric pain R10.9 [place] [address] [address] Dec, [place] [id number] [place] [address] Dec, History of illicit drug use Z87.898 ; Neuropathy G62.9 ; COPD (chronic obstructive pulmonary disease) with chronic bronchitis J44.9 and Acute pain of right knee M25.561 [place] [id number] [place] [address] Nov, [place] [address] [place] [id number] [place] [address] 15 Nov, 2017 Onychomycosis B35.1 and Contusion of left foot, subsequent encounter S90.32XD [address] [address] 13 Nov, 2017 COPD exacerbation J44.[address] [address] Sep, [address] [address] Sep, Dysthymic disorder F34.1 ; Tobacco abuse Z72.0 ; Pain in right knee M25.561 ; Pain in left knee M25.562 ; Other chronic pain G89.29 and BMI 40.0- 44.9, adult Z68.[address] [address] Aug, Major depressive disorder, recurrent episode, moderate F33.1 and 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 [address] Aug, Dysthymic disorder F34.1 ; Non-pressure chronic ulcer of left thigh, unspecified ulcer stage L97.129 ; Tobacco abuse Z72.0 ; Mild chronic obstructive pulmonary disease J44.9 and Forgetfulness R68.[address] [address] Aug, Onychomycosis B35.1 ; Fissure in skin of foot R23.4 and Foot callus L84 [facility] [place] [id number] [place] [address] Jul, Right medial knee pain M25.561 ; Upper respiratory tract infection, unspecified type J06.9 and BMI 40.0-44.9, adult Z68.41 [facility] [place] [id number] [place] [address] Jul, Nausea and vomiting, intractability of vomiting not specified, unspecified vomiting type R11.2 ; Left ear pain H92.02 and Gastric pain R10.9 [facility] [id number] [place] [address] Apr, Encounter for immunization Z23 [facility] [id number] [place] [address] Apr, Onychomycosis B35.1 ; Xerosis of skin L85.3 ; Neuropathy G62.9 and 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 [facility] [id number] [place] [address] Jan, Onychomycosis B35.1 and Neuropathy G62.9 [facility] [id number] [place] [address] Dec, [facility] [id number] [place] [address] Dec, [facility] [id number] [place] [address] Nov, [facility] [id number] [place] [address] Aug, [facility] [id number] [address] Aug, [facility] [id number] [place] [address] Jul, [facility] [id number] [place] [address] Jul, [facility] [id number] [place] [address] Jul, Decubitus ulcer of left thigh, stage 2 L89.892 [facility] [address] [address] Jul, Decubitus ulcer of left thigh, stage 2 L89.892 [facility] [address] [address] 17 Jul, 2016 [facility] [id number] [place] [address] 15 Jul, 2016 Decubitus ulcer of left thigh, stage 2 L89.892 [facility] [id number] [place] [address] 14 Jul, 2016 [facility] [address] [place] [address] 13 Jul, 2016 Cellulitis of other specified site L03.818 ; Illicit drug use F19.90 and Decubitus ulcer of left thigh, stage 2 L89.892 [facility] [address] [place] [address] 08 Jul, 2016 [facility] [id number] [place] [address] 06 Jul, 2016 Cellulitis of right breast N61.0 [facility] [address] [place] [address] Jun, [facility] [id number] [place] [address] Jun, [facility] [address] [place] [address] Jun, Wheezing R06.2 and Arthralgia, unspecified joint M25.50 [facility] [address] [address] May, [facility] [id number] [place] [address] May, [facility] [address] [address] May, [facility] [id number] [place] [address] May, Shortness of breath R06.02 [facility] [address] [address] 02 May, 2016 Onychomycosis B35.1 and Fissure in skin of foot R23.4 [facility] [address] [address] 28 Apr, 2016 [facility] [id number] [place] [address] 18 Apr, 2016 Dizziness R42 [facility] [id number] [place] [address] 14 Apr, 2016 Shortness of breath R06.02 ; Essential hypertension I10 ; Dizziness R42 and On home oxygen therapy Z99.81 [facility] [id number] [place] [address] Apr, [facility] [id number] [place] [address] Apr, [facility] [id number] [place] [address] Apr, [facility] [id number] [place] [address] Apr, [facility] [id number] [place] [address] Apr, [facility] [id number] [place] [address] Apr, [facility] [id number] [place] [address] Apr, [facility] [id number] [place] [address] Mar, Mild chronic obstructive pulmonary disease J44.9 [facility] [id number] [place] [address] Mar, [facility] [address] [place] [id number] [place] [address] Mar, Epigastric pain R10.13 ; Low back pain M54.5 ; Other chronic pain G89.29 and Breast cancer screening Z12.39 [place] [id number] [place] [address] Mar, [place] [id number] [place] [address] Mar, [place] [id number] [place] [address] Feb, [place] [address] [address] Feb, [place] [id number] [place] [address] Feb, Fissure in skin of foot R23.4 and Onychomycosis B35.1 [place] [id number] [place] [address] Jan, Agoraphobia F40.00 [place] [id number] [place] [address] Dec, Agoraphobia F40.00 [place] [id number] [place] [address] Dec, Mild persistent asthma without complication J45.30 ; Dysthymic disorder F34.1 and Upper respiratory tract infection, unspecified type J06.9 [place] [id number] [place] [address] Nov, Agoraphobia F40.00 [place] [id number] [place] [address] October, Agoraphobia F40.00 [place] [id number] [place] [address] Sep, Panic disorder without agoraphobia F41.0 ; Agoraphobia F40.00 and Dysthymic disorder F34.1 [facility] [id number] [place] [address] Sep, Panic attacks F41.0 [facility] [id number] [place] [address] Sep, [facility] [id number] [place] [address] Sep, Panic disorder without agoraphobia F41.0 ; Varicose veins of both lower extremities I83.93 and Fatigue R53.83 [place] [id number] [place] [address] Sep, Fatigue R53.83 [place] [id number] [place] [address] Sep, [place] [id number] [place] [address] Aug, [place] [id number] [place] [address] Aug, [place] [id number] [place] [address] Aug, 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 [place] [id number] [place] [address] Aug, Panic disorder without agoraphobia F41.0 ; Agoraphobia F40.00 and Dysthymic disorder F34.1 [place] [id number] [place] [address] Aug, Shortness of breath R06.02 ; Panic attacks F41.0 ; COPD (chronic obstructive pulmonary disease) J44.9 ; Tobacco abuse Z72.0 ; Family history of diabetes mellitus Z83.3 and Weight gain R63.5 [place] [id number] [place] [address] Aug, [facility] [id number] [place] [address] Jul, [facility] [address] [address] Jun, Onychomycosis B35.1 ; Neuropathy G62.9 and Impaired circulation I99.9 [place] [address] [address] Mar, Fissure in skin of foot R23.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 [place] [id number] [place] [address] Feb, Family history of coronary arteriosclerosis V17.3 [place] [id number] [place] [address] Feb, Allergic rhinitis due to pollen 477.0 ; Unspecified breast screening V76.10 ; Anxiety 300.00 and Family history of coronary arteriosclerosis V17.3 [place] [id number] [place] [address] Jan, [place] [id number] [place] [address] Dec, [place] [id number] [place] [address] Dec, Onychomycosis 110.1 and Skin fissures 709.8 [facility] [id number] [place] [address] Sep, [place] [id number] [place] [address] Sep, [facility] [id number] [place] [address] Aug, [facility] [id number] [place] [address] Aug, [facility] [address] [id number] [place] [address] Jul, [facility] [place] [facility] [address] [id number] [place] [address] Jul, [facility] [place] [facility] [address] [id number] [place] [address] Jun, [facility] [place] [facility] [address] [id number] [place] [address] Jun, [facility] [place] [facility] [address] [id number] [place] [address] Jun, [facility] [place] [facility] [address] [id number] [place] [address] Jun, [facility] [address] [id number] [place] [address] Jun, [facility] [address] [id number] [place] [address] May, [facility] [place] [facility] [address] [id number] [place] [address] May, [facility] [place] [facility] [address] [id number] [place] [address] May, [facility] [place] [facility] [address] [id number] [place] [address] May, [facility] [place] [facility] [address] [id number] [place] [address] May, [facility] [place] [facility] [address] [id number] [place] [address] May, [facility] [place] [facility] [address] [id number] [place] [address] May, [facility] [place] [facility] [address] [id number] [place] [address] May, [facility] [place] [facility] [address] [id number] [place] [address] Apr, [facility] [place] [facility] [address] [id number] [place] [address] Apr, [facility] [place] [facility] [address] [id number] [place] [address] Apr, [facility] [place] [facility] [address] [id number] [place] [address] Apr, [facility] [place] [facility] [address] [id number] [place] [address] Apr, [facility] [place] [facility] [address] [id number] [place] [address] Apr, [facility] [place] [facility] [address] [id number] [place] [address] Apr, [facility] [place] [facility] [address] [id number] [place] [address] Apr, [facility] [place] [facility] [address] [id number] [place] [address] Apr, [facility] [place] [facility] [address] [id number] [place] [address] Apr, [facility] [place] [facility] [address] [id number] [place] [address] Mar, [facility] [place] [facility] [address] [id number] [place] [address] Mar, [facility] [place] [facility] [address] [id number] [place] [address] Mar, [facility] [place] [facility] [address] [id number] [place] [address] Mar, [facility] [place] [facility] [address] [id number] [place] [address] Mar, [facility] [place] [facility] [address] [id number] [place] [address] Mar, [facility] [place] [facility] [address] [id number] [place] [address] Mar, 2013 [facility] [place] [facility] [address] [id number] [place] [address] Mar, [facility] [place] [facility] [address] [id number] [place] [address] 24 Mar, 2014 [facility] [place] [facility] [address] [id number] [place] [address] Mar, [facility] [place] [facility] [address] [id number] [place] [address] Mar, [facility] [place] [facility] [address] [id number] [place] [address] Mar, [facility] [place] [facility] [address] [id number] [place] [address] Mar, [facility] [place] [facility] [address] [id number] [place] [address] Mar, [facility] [place] [facility] [address] [id number] [place] [address] Mar, [facility] [place] [facility] [address] [id number] [place] [address] 20 Mar, 2014 [facility] [place] [facility] [address] [id number] [place] [address] 20 Mar, 2014 [facility] [place] [facility] [address] [id number] [place] [address] 16 Mar, 2013 [facility] [place] [facility] [address] [id number] [place] [address] 16 Mar, 2013 [facility] [place] [facility] [address] [id number] [place] [address] 15 Mar, 2014 [facility] [place] [facility] [address] [id number] [place] [address] 14 Mar, 2014 [facility] [place] [facility] [address] [id number] [place] [address] 14 Mar, 2013 [facility] [place] [facility] [address] [id number] [place] [address] 14 Mar, 2013 [facility] [place] [facility] [address] [id number] [place] [address] 14 Mar, 2014 [facility] [place] [facility] [address] [id number] [place] [address] Mar, 2013 [facility] [place] [facility] [address] [id number] [place] [address] Mar, 2013 [facility] [place] [facility] [address] [id number] [place] [address] Mar, [facility] [place] [facility] [address] [id number] [place] [address] Mar, [facility] [place] [facility] [address] [id number] [place] [address] 30 Feb, 2013 [facility] [place] [facility] [address] [id number] [place] [address] 30 Feb, 2013 [facility] [place] [facility] [address] [id number] [place] [address] 30 Feb, 2013 [facility] [place] [facility] [address] [id number] [place] [place] [address] 30 Feb, 2013 [facility] [place] [facility] [address] [id number] [place] [address] 26 Sep, 2013 [facility] [place] [facility] [address] [id number] [address] 26 Sep, 2013 [facility] [place] [facility] [address] [id number] [place] [address] 09 Sep, 2013 [facility] [place] [facility] [address] [id number] [place] [address] 09 Sep, 2013 [facility] [place] [facility] [address] [id number] [place] [address] 03 Sep, 2013 [facility] [place] [facility] [address] [id number] [place] [address] Feb, 2013 [facility] [place] [facility] [address] [id number] [place] [address] Feb, 2013 [facility] [place] [facility] [address] [id number] [place] [address] Feb, [facility] [place] [facility] [address] [id number] [place] [address] Jan, [facility] [place] [facility] [address] [id number] [place] [address] Jan, [facility] [place] [facility] [address] [id number] [place] [address] Jan, [facility] [place] [facility] [address] [id number] [place] [address] Jan, [facility] [place] [facility] [address] [id number] [place] [address] Jan, [facility] [place] [facility] [address] [id number] [place] [address] Jan, [facility] [place] [facility] [address] [id number] [place] [address] Jan, [facility] [place] [facility] [address] [id number] [place] [address] Jan, [facility] [place] [facility] [address] [id number] [place] [address] Jan, [facility] [place] [facility] [address] [id number] [place] [address] Jan, [facility] [place] [facility] [address] [id number] [place] [address] Jan, [facility] [place] [facility] [address] [id number] [place] [address] Jan, [facility] [place] [facility] [address] [id number] [place] [address] Jan, [facility] [place] [facility] [address] [id number] [facility] [place] [address] Dec, [facility] [place] [facility] [address] [id number] [place] [address] Dec, [facility] [place] [facility] [address] [id number] [place] [address] Dec, [facility] [place] [facility] [address] [id number] [place] [address] Dec, [facility] [place] [facility] [address] [id number] [place] [address] Dec, [facility] [place] [facility] [address] [id number] [place] [address] Dec, [facility] [place] [facility] [address] [id number] [place] [address] Dec, [facility] [place] [facility] [address] [id number] [place] [address] Dec, [facility] [place] [facility] [address] [id number] [place] [address] Dec, [facility] [place] [facility] [address] [id number] [place] [address] Dec, [facility] [place] [facility] [address] [id number] [place] [address] Dec, [facility] [place] [facility] [address] [id number] [place] [address] Dec, [facility] [place] [facility] [address] [id number] [place] [address] Dec, [facility] [place] [facility] [address] [id number] [place] [address] Dec, [facility] [place] [facility] [address] [id number] [place] [address] Dec, [facility] [place] [facility] [address] [id number] [place] [address] Dec, [facility] [place] [facility] [address] [id number] [place] [address] Dec, [facility] [place] [facility] [address] [id number] [place] [address] Dec, [facility] [place] [facility] [address] [id number] [place] [address] Nov, [facility] [place] [facility] [address] [id number] [place] [address] Nov, [facility] [place] [facility] [address] [id number] [place] [address] Nov, [facility] [place] [facility] [address] [id number] [place] [address] Nov, [facility] [place] [facility] [address] [id number] [place] [address] Nov, [facility] [place] [facility] [address] [id number] [place] [address] Nov, [facility] [place] [facility] [address] [id number] [place] [address] Nov, [facility] [place] [facility] [address] [id number] [place] [address] Nov, [facility] [place] [facility] [address] [id number] [address] Nov, [facility] [place] [facility] [address] [id number] [place] [address] Nov, [facility] [place] [facility] [address] [id number] [place] [address] Nov, [facility] [place] [facility] [address] [id number] [place] [address] Nov, [facility] [place] [facility] [address] [id number] [place] [address] Nov, [facility] [place] [facility] [address] [id number] [place] [address] Nov, [facility] [place] [facility] [address] [id number] [place] [address] Nov, [facility] [place] [facility] [address] [id number] [place] [address] Nov, [facility] [place] [facility] [address] [id number] [place] [address] Nov, [facility] [place] [facility] [address] [id number] [place] [address] Nov, [facility] [place] [facility] [address] [id number] [place] [address] Nov, [facility] [place] [facility] [address] [id number] [place] [address] Nov, [facility] [place] [facility] [address] [id number] [place] [address] October, [facility] [place] [facility] [address] [id number] [place] [address] October, [facility] [place] [facility] [address] [id number] [place] [address] October, [facility] [place] [facility] [address] [id number] [place] [address] October, [facility] [place] [facility] [address] [id number] [place] [address] Sep, [facility] [place] [facility] [address] [id number] [place] [address] Sep, [facility] [place] [facility] [address] [id number] [place] [address] Sep, [facility] [place] [facility] [address] [id number] [place] [address] Sep, [facility] [place] [facility] [address] [id number] [place] [address] Sep, [facility] [place] [facility] [address] [id number] [place] [address] Sep, [facility] [place] [facility] [address] [id number] [place] [address] Sep, [facility] [place] [facility] [address] [id number] [place] [address] Sep, [facility] [place] [facility] [address] [id number] [place] [address] Sep, [facility] [place] [facility] [address] [id number] [place] [address] Aug, [facility] [place] [facility] [address] [id number] [place] [address] Aug, [facility] [place] [facility] [address] [id number] [place] [address] Aug, [facility] [place] [facility] [address] [id number] [place] [address] Aug, [facility] [place] [facility] [address] [id number] [place] [address] Aug, [facility] [place] [facility] [address] [id number] [place] [address] Aug, [facility] [place] [facility] [address] [id number] [place] [address] Aug, [facility] [place] [facility] [address] [id number] [place] [address] Aug, [facility] [place] [facility] [address] [id number] [place] [address] Jul, [facility] [place] [facility] [address] [id number] [place] [address] Jul, [facility] [place] [facility] [address] [id number] [place] [address] Jun, [facility] [place] [facility] [address] [id number] [place] [address] Jun, [facility] [address] [id number] [place] [address] Jun, [facility] [place] [facility] [address] [id number] [place] [address] Jun, [facility] [place] [facility] [address] [id number] [place] [address] Jun, [facility] [place] [facility] [address] [id number] [place] [address] Jun, [facility] [place] [facility] [address] [id number] [place] [address] Jun, [facility] [place] [facility] [address] [id number] [place] [address] Jun, [facility] [place] [facility] [address] [id number] [place] [address] Jun, [facility] [place] [facility] [address] [id number] [place] [address] Jun, [facility] [place] [facility] [address] [id number] [place] [address] Jun, [facility] [place] [facility] [address] [facility] [id number] [place] [address] Jun, [facility] [place] [facility] [address] [id number] [place] [address] May, [facility] [place] [facility] [address] [id number] [place] [address] May, [facility] [place] [facility] [address] [id number] [place] [address] May, [facility] [place] [facility] [address] [id number] [place] [address] May, [facility] [place] [facility] [address] [id number] [place] [address] May, [facility] [place] [facility] [address] [id number] [place] [address] 31 May, 2013 [facility] [address] [id number] [place] [address] May, [facility] [place] [facility] [address] [id number] [place] [address] May, [facility] [place] [facility] [address] [id number] [place] [address] May, [facility] [place] [facility] [address] [id number] [place] [address] May, [facility] [place] [facility] [address] [id number] [place] [address] May, [facility] [place] [facility] [address] [id number] [place] [address] May, [facility] [place] [facility] [address] [id number] [place] [address] May, [facility] [place] [facility] [address] [id number] [place] [address] Apr, [facility] [place] [facility] [address] [id number] [place] [address] Apr, [facility] [place] [facility] [address] [id number] [place] [address] Mar, [facility] [place] [facility] [address] [id number] [place] [address] Mar, [facility] [place] [facility] [address] [id number] [place] [address] 24 Feb, 2013 [facility] [place] [facility] [address] [id number] [place] [address] 23 Feb, 2013 [facility] [place] [facility] [address] [id number] [place] [address] 05 Feb, 2013 [facility] [place] [facility] [address] [id number] [place] [address] Feb, [facility] [place] [facility] [address] [id number] [place] [address] Jan, [facility] [place] [facility] [address] [id number] [place] [address] Jan, [facility] [place] [facility] [address] [id number] [place] [address] Jan, [facility] [place] [facility] [address] [id number] [place] [address] Jan, [facility] [place] [facility] [address] [id number] [place] [address] Jan, [facility] [place] [facility] [address] [id number] [place] [address] Jan, [facility] [place] [facility] [address] [id number] [place] [address] Dec, [facility] [place] [facility] [address] [id number] [place] [address] Dec, [facility] [place] [facility] [address] [id number] [place] [address] Dec, [facility] [place] [facility] [address] [id number] [place] [address] Dec, [facility] [place] [facility] [address] [id number] [place] [address] Nov, [facility] [place] [facility] [address] [id number] [place] [address] October, [facility] [place] [facility] [address] [id number] [place] [address] October, [facility] [place] [facility] [address] [id number] [place] [address] October, [facility] [place] [facility] [address] [id number] [place] [address] Sep, [facility] [place] [facility] [address] [id number] [place] [address] Sep, [facility] [place] [facility] [address] [id number] [place] [address] Jun, [facility] [place] [facility] [address] [id number] [place] [address] Jun, [facility] [place] [facility] [address] [id number] [place] [address] Jun, [facility] [place] [facility] [address] [id number] [place] [address] Apr, [facility] [place] [facility] [address] [id number] [place] [address] Apr, [facility] [place] [facility] [address] [id number] [place] [address] Apr, [facility] [place] [facility] [address] [id number] [place] [address] Apr, [facility] [place] [facility] [address] [id number] [place] [address] Mar, [facility] [place] [facility] [address] [id number] [place] [address] Mar, [facility] [place] [facility] [address] [id number] [place] [address] Mar, [facility] [place] [facility] [address] [id number] [place] [address] Mar, [facility] [place] [facility] [address] [id number] [place] [address] 29 Feb, 2012 [facility] [place] [facility] [address] [id number] [place] [address] 27 Feb, 2012 [facility] [place] [facility] [address] [id number] [place] [address] Feb, [facility] [place] [facility] [address] [id number] [place] [address] Jan, [facility] [place] [facility] [address] [id number] [place] [address] Jan, [facility] [place] [facility] [address] [id number] [place] [address] Jan, [facility] [place] [facility] [address] [id number] [place] [address] Jan, [facility] [place] [facility] [address] [id number] [place] [address] Dec, [facility] [place] [facility] [address] [id number] [place] [address] Dec, [facility] [place] [facility] [address] [id number] [place] [address] Nov, [facility] [place] [facility] [address] [id number] [place] [address] Nov, [facility] [place] [facility] [address] [id number] [place] [address] October, [facility] [place] [facility] [address] [id number] [place] [address] October, [facility] [place] [facility] [address] [id number] [place] [address] October[facility] [place] [facility] [address] [id number] [place] [address] Sep, [facility] [place] [facility] [address] [id number] [place] [address] Sep, [facility] [place] [facility] [address] [id number] [place] [address] Sep, [facility] [place] [facility] [address] [id number] [place] [address] Aug, [facility] [place] [facility] [address] [id number] [place] [address] Aug, [facility] [place] [facility] [address] [id number] [place] [address] 15 Aug, 2011 [facility] [address] [id number] [place] [address] 15 Aug, 2011 [facility] [address] [id number] [place] [address] 07 Aug, 2011 [facility] [address] [id number] [place] [address] 23 Jul, 2011 [facility] [address] [id number] [place] [address] 16 Jul, 2011 [facility] [address] [id number] [place] [address] 13 Jul, 2011 [facility] [address] [id number] [place] [address] 09 Jul, 2011 [facility] [address] [facility] [id number] [place] [address] 07 Jul, 2011 [facility] [address] [id number] [place] [address] 06 Jul, 2011 [facility] [address] [id number] [place] [address] Jul, [facility] [address] [facility] [id number] [place] [address] Jul, [facility] [address] [facility] [id number] [place] [address] Jun, [facility] [address] [id number] [place] [address] Jun, [facility] [address] [id number] [place] [address] May, [facility] [place] [facility] [address] [id number] [place] [address] May, [facility] [address] [facility] [id number] [place] [address] May, [facility] [place] [facility] [address] [id number] [place] [address] 08 May, 2011 [facility] [place] [facility] [address] [id number] [place] [address] 30 Apr, 2011 [facility] [place] [facility] [address] [id number] [place] [address] Apr, [facility] [place] [facility] [address] [id number] [place] [address] Apr, [facility] [place] [facility] [address] [id number] [place] [address] Mar, [facility] [place] [facility] [address] [id number] [place] [address] Mar, [facility] [place] [facility] [address] [id number] [place] [address] Mar, [facility] [place] [facility] [address] [id number] [place] [address] Mar, [facility] [place] [facility] [address] [id number] [place] [address] Dec, [facility] [place] [facility] [address] [id number] [place] [address] October, [facility] [place] [facility] [address] [id number] [place] [address] May, [facility] [place] [facility] [address] [id number] [place] [address] May, [facility] [place] [facility] [address] [id number] [place] [address] May, [facility] [place] [facility] [address] [id number] [place] [address] 06 May, 2010 [facility] [place] [facility] [address] [id number] [place] [address] 26 Mar, 2010 [facility] [place] [facility] [address] [id number] [address] Mar, [facility] [address] [id number] [address] May, [facility] [address] [id number] [address] May, [facility] [address] [id number] [address] May, [facility] [address] [id number] [address] May, [facility] [address] [id number] [address] Apr, [facility] [id number] [address] Apr, [facility] [address] [id number] [address] October, IMMUNIZATIONS No Known Immunizations SOCIAL HISTORY Never Assessed REASON FOR VISIT [facility] [place] PLAN OF CARE VITAL [...]
--- OUTSIDE RECORDS SUMMARY | 2019-01-13 10:20 | XMS REPORT ---
Author Author Migration, Doctor Organization [facility] Address Unknown Phone Unavailable Care Team Providers Care Food And Beverage Lead Name Role Phone Migration, Doctor Unavailable Unavailable PROBLEMS Type Condition ICD9-CM Code ILI99-IL Code Onset Dates Condition Status SNOMED Code Problem History of illicit drug use Z87.898 Active 694683638 Problem MRSA (methicillin resistant staph aureus) culture positive Z22.322 Active 488201245 Problem Snoring R06.83 Active 75912727 Problem Neuropathy G62.9 Active 679211317 Problem Essential hypertension I10 Active 68982688 Problem Fatigue R53.83 Active 37462882 Problem Panic disorder without agoraphobia F41.0 Active 73404698 Problem Upper respiratory tract infection, unspecified type J06.9 Active 55350714 Problem Varicose veins of both lower extremities I83.93 Active 68012806 Problem Other chronic pain G89.29 Active 95998613 Problem Mild persistent asthma without complication J45.30 Active 159872581 Problem On home oxygen therapy Z99.81 Active 928222017326 Problem Mild chronic obstructive pulmonary disease J44.9 Active 530213717 Problem Major depressive disorder, recurrent episode, moderate F33.1 Active 371463560 Problem 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 Active 66320754 Problem COPD exacerbation J44.1 Active 115211302 Problem Mood disorder F39 Active 07625553 Problem Dysthymic disorder F34.1 Active 04911763 Problem Psychotic disorder F29 Active 06442508 Problem Impaired circulation I99.9 Active 67627202 Problem Agoraphobia F40.00 Active 16146267 Problem COPD (chronic obstructive pulmonary disease) with chronic bronchitis J44.9 Active 501735786 Problem Exertional asthma J45.990 Active 97063309 Problem 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 044400498 Problem Arthritis M19.90 Active 3523642 ALLERGIES No Information ENCOUNTERS Encounter Location Date Diagnosis [facility] [address] [facility] [id number] [address] Nov, [facility] [id number] [place] [address] October, [facility] [id number] [place] [address] Sep, [facility] [id number] [place] [address] Sep, [facility] [id number] [place] [address] Sep, Gastroenteritis K52.9 ; Low back pain M54.5 ; Other chronic pain G89.29 and Morbid obesity E66.01 [facility] [id number] [place] [address] Sep, Major depressive disorder, recurrent episode, moderate F33.1 ; Panic disorder without agoraphobia F41.0 and 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 [place] [id number] [place] [address] Sep, Panic disorder without agoraphobia F41.0 [facility] [id number] [place] [address] Sep, Panic disorder without agoraphobia F41.0 [facility] [id number] [place] [address] Aug, Panic disorder without agoraphobia F41.0 ; Major depressive disorder, recurrent episode, moderate F33.1 ; 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 ; Psychotic disorder F29 ; Tardive dyskinesia G24.01 and Morbid obesity E66.01 [facility] [id number] [place] [address] Aug, Dysthymic disorder F34.1 and Psychotic disorder F29 [facility] [id number] [place] [address] Aug, Encounter for Medicare annual wellness exam Z00.00 ; Morbid obesity E66.01 and 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 [place] [address] [id number] [place] [address] Aug, Dysthymic disorder F34.1 and Psychotic disorder F29 [place] [id number] [place] [address] Aug, Neuropathy G62.9 ; Onychomycosis B35.1 and Xerosis of skin L85.3 [place] [id number] [place] [address] Jul, [place] [address] [address] Jul, Mood disorder F39 ; Wheezing R06.2 ; Choking, initial encounter T17.308A and Coughing R05 [place] [id number] [place] [address] Jul, Low back pain M54.5 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 [place] [id number] [place] [address] May, Low back pain M54.5 and Edema leg R60.0 [place] [id number] [place] [address] May, BMI 45.0-49.9, adult Z68.42 ; Well woman exam with routine gynecological exam Z01.419 and Breast cancer screening Z12.31 [place] [address] [address] 19 Apr, 2018 Arthritis M19.90 [place] [address] [address] 16 Apr, 2018 Arthritis M19.90 and Otalgia of both ears H92.03 [place] [address] [address] 28 Feb, 2018 [place] [address] [address] 28 Feb, 2018 Low back pain M54.5 ; Other chronic pain G89.29 ; Exertional asthma J45.990 and Encounter for immunization Z23 [place] [address] [address] 21 Feb, 2018 Skin fissures R23.4 ; Neuropathy G62.9 and Onychomycosis B35.1 [place] [address] [address] 05 Feb, 2018 Dysthymic disorder F34.1 [place] [address] [address] 04 Feb, 2018 [place] [address] [address] Jan, [place] [address] [address] Jan, Abrasion of right elbow, initial encounter S50.311A ; Abrasion, right knee, initial encounter S80.211A and Sprain of other ligament of right ankle, initial encounter S93.491A [place] [address] [address] Jan, [facility] [address] [place] [address] Jan, Injury of left ankle, initial encounter S99.912A ; Fall down stairs, initial encounter W10.8XXA and BMI 45.0-49.9, adult Z68.42 [place] [id number] [place] [address] Jan, COPD exacerbation J44.1 [place] [address] [address] Jan, Dysfunction of both eustachian 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 [place] [address] [address] Jan, Bronchitis J40 and Acute suppurative otitis media of left ear without spontaneous rupture of tympanic membrane, recurrence not specified H66.002 [place] [id number] [place] [address] Jan, [place] [address] [address] Jan, Bronchitis J40 and BMI 40.0-44.9, adult Z68.41 [place] [id number] [place] [address] Jan, [place] [id number] [place] [address] Dec, Gastric pain R10.9 [place] [address] [address] Dec, [place] [id number] [place] [address] Dec, History of illicit drug use Z87.898 ; Neuropathy G62.9 ; COPD (chronic obstructive pulmonary disease) with chronic bronchitis J44.9 and Acute pain of right knee M25.561 [place] [id number] [place] [address] Nov, [place] [address] [place] [id number] [place] [address] 15 Nov, 2017 Onychomycosis B35.1 and Contusion of left foot, subsequent encounter S90.32XD [address] [address] 13 Nov, 2017 COPD exacerbation J44.[address] [address] Sep, [address] [address] Sep, Dysthymic disorder F34.1 ; Tobacco abuse Z72.0 ; Pain in right knee M25.561 ; Pain in left knee M25.562 ; Other chronic pain G89.29 and BMI 40.0- 44.9, adult Z68.[address] [address] Aug, Major depressive disorder, recurrent episode, moderate F33.1 and 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 [address] Aug, Dysthymic disorder F34.1 ; Non-pressure chronic ulcer of left thigh, unspecified ulcer stage L97.129 ; Tobacco abuse Z72.0 ; Mild chronic obstructive pulmonary disease J44.9 and Forgetfulness R68.[address] [address] Aug, Onychomycosis B35.1 ; Fissure in skin of foot R23.4 and Foot callus L84 [facility] [place] [id number] [place] [address] Jul, Right medial knee pain M25.561 ; Upper respiratory tract infection, unspecified type J06.9 and BMI 40.0-44.9, adult Z68.41 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 [facility] [id number] [place] [address] Jan, Onychomycosis B35.1 and Neuropathy G62.9 [facility] [id number] [place] [address] Dec, [facility] [id number] [place] [address] Dec, [facility] [id number] [place] [address] Nov, [facility] [id number] [place] [address] Aug, [facility] [address] [id number] [address] Aug, [facility] [id number] [place] [address] Jul, [facility] [id number] [place] [address] Jul, [facility] [id number] [place] [address] Jul, Decubitus ulcer of left thigh, stage 2 L89.892 [facility] [address] [address] Jul, Decubitus ulcer of left thigh, stage 2 L89.892 [facility] [address] [address] 17 Jul, 2016 [facility] [id number] [place] [address] 15 Jul, 2016 Decubitus ulcer of left thigh, stage 2 L89.892 [facility] [id number] [place] [address] 14 Jul, 2016 [facility] [id number] [place] [address] 13 Jul, 2016 Cellulitis of other specified site L03.818 ; Illicit drug use F19.90 and Decubitus ulcer of left thigh, stage 2 L89.892 [facility] [address] [place] [address] 08 Jul, 2016 [facility] [id number] [place] [address] 06 Jul, 2016 Cellulitis of right breast N61.0 [facility] [id number] [place] [address] Jun, [facility] [id number] [place] [address] Jun, [facility] [id number] [place] [address] Jun, Wheezing R06.2 and Arthralgia, unspecified joint M25.50 [facility] [address] [address] May, [facility] [id number] [place] [address] May, [facility] [address] [address] May, [facility] [address] [place] [address] May, Shortness of breath R06.02 [facility] [address] [address] 02 May, 2016 Onychomycosis B35.1 and Fissure in skin of foot R23.4 [facility] [address] [address] 28 Apr, 2016 [facility] [id number] [place] [address] 18 Apr, 2016 Dizziness R42 [facility] [id number] [place] [address] 14 Apr, 2016 Shortness of breath R06.02 ; Essential hypertension I10 ; Dizziness R42 and On home oxygen therapy Z99.81 [facility] [id number] [place] [address] Apr, [facility] [id number] [place] [address] Apr, [facility] [id number] [place] [address] Apr, [facility] [id number] [place] [address] Apr, [facility] [id number] [place] [address] Apr, [facility] [id number] [place] [address] Apr, [facility] [id number] [place] [address] Apr, [facility] [id number] [place] [address] Mar, Mild chronic obstructive pulmonary disease J44.9 [facility] [id number] [place] [address] Mar, [facility] [address] [place] [id number] [place] [address] Mar, Epigastric pain R10.13 ; Low back pain M54.5 ; Other chronic pain G89.29 and Breast cancer screening Z12.39 [place] [id number] [place] [address] Mar, [place] [id number] [place] [address] Mar, [place] [id number] [place] [address] Feb, [place] [address] [address] Feb, [place] [id number] [place] [address] Feb, Fissure in skin of foot R23.4 and Onychomycosis B35.1 [place] [id number] [place] [address] Jan, Agoraphobia F40.00 [place] [id number] [place] [address] Dec, Agoraphobia F40.00 [place] [id number] [place] [address] Dec, Mild persistent asthma without complication J45.30 ; Dysthymic disorder F34.1 and Upper respiratory tract infection, unspecified type J06.9 [place] [id number] [place] [address] Nov, Agoraphobia F40.00 [place] [id number] [place] [address] October, Agoraphobia F40.00 [place] [id number] [place] [address] Sep, Panic disorder without agoraphobia F41.0 ; Agoraphobia F40.00 and Dysthymic disorder F34.1 [facility] [id number] [place] [address] Sep, Panic attacks F41.0 [facility] [id number] [place] [address] Sep, [facility] [id number] [place] [address] Sep, Panic disorder without agoraphobia F41.0 ; Varicose veins of both lower extremities I83.93 and Fatigue R53.83 [place] [id number] [place] [address] Sep, Fatigue R53.83 [place] [id number] [place] [address] Sep, [place] [id number] [place] [address] Aug, [place] [id number] [place] [address] Aug, [place] [id number] [place] [address] Aug, 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 [place] [id number] [place] [address] Aug, Panic disorder without agoraphobia F41.0 ; Agoraphobia F40.00 and Dysthymic disorder F34.1 [place] [id number] [place] [address] Aug, Shortness of breath R06.02 ; Panic attacks F41.0 ; COPD (chronic obstructive pulmonary disease) J44.9 ; Tobacco abuse Z72.0 ; Family history of diabetes mellitus Z83.3 and Weight gain R63.5 [place] [id number] [place] [address] Aug, [facility] [id number] [place] [address] Jul, [facility] [address] [address] Jun, Onychomycosis B35.1 ; Neuropathy G62.9 and Impaired circulation I99.9 [place] [address] [address] Mar, Fissure in skin of foot R23.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 [place] [id number] [place] [address] Feb, Family history of coronary arteriosclerosis V17.3 [place] [id number] [place] [address] Feb, Allergic rhinitis due to pollen 477.0 ; Unspecified breast screening V76.10 ; Anxiety 300.00 and Family history of coronary arteriosclerosis V17.3 [place] [id number] [place] [address] Jan, [place] [address] [id number] [place] [address] Dec, [place] [address] [id number] [place] [address] Dec, Onychomycosis 110.1 and Skin fissures 709.8 [facility] [id number] [place] [address] Sep, [place] [address] [id number] [place] [address] Sep, [facility] [id number] [place] [address] Aug, [facility] [id number] [place] [address] Aug, [facility] [address] [id number] [place] [address] Jul, [facility] [place] [facility] [address] [id number] [place] [address] Jul, [facility] [place] [facility] [address] [id number] [place] [address] Jun, [facility] [place] [facility] [address] [id number] [place] [address] Jun, [facility] [place] [facility] [address] [id number] [place] [address] Jun, [facility] [place] [facility] [address] [id number] [place] [address] Jun, [facility] [address] [id number] [place] [address] Jun, [facility] [address] [id number] [place] [address] May, [facility] [place] [facility] [address] [id number] [place] [address] May, [facility] [place] [facility] [address] [id number] [place] [address] May, [facility] [place] [facility] [address] [id number] [place] [address] May, [facility] [place] [facility] [address] [id number] [place] [address] May, [facility] [place] [facility] [address] [id number] [place] [address] May, [facility] [place] [facility] [address] [id number] [place] [address] May, [facility] [place] [facility] [address] [id number] [place] [address] May, [facility] [place] [facility] [address] [id number] [address] Apr, [facility] [place] [facility] [address] [id number] [place] [address] Apr, [facility] [place] [facility] [address] [id number] [address] Apr, [facility] [place] [facility] [address] [id number] [place] [address] Apr, [facility] [place] [facility] [address] [id number], [place] [address] Apr, [facility] [place] [facility] [address] [id number] [place] [address] Apr, [facility] [place] [facility] [address] [id number] [place] [address] Apr, [facility] [place] [facility] [address] [id number] [address] Apr, [facility] [place] [facility] [address] [id number], [place] [address] Apr, [facility] [place] [facility] [address] [id number], [place] [address] Apr, [facility] [place] [facility] [address] [id number], [place] [address] Mar, [facility] [place] [facility] [address] [id number], [place] [address] Mar, [facility] [place] [facility] [address] [id number], [place] [address] Mar, [facility] [place] [facility] [address] [id number], [place] [address] Mar, [facility] [place] [facility] [address] [id number], [place] [address] Mar, [facility] [place] [facility] [address] [id number] [place] [address] Mar, [facility] [place] [facility] [address] [id number] [place] [address] Mar, 2013 [facility] [place] [facility] [address] [id number] [place] [address] Mar, [facility] [place] [facility] [address] [id number] [place] [address] 24 Mar, 2014 [facility] [place] [facility] [address] [id number] [place] [address] Mar, [facility] [place] [facility] [address] [id number] [place] [address] Mar, [facility] [place] [facility] [address] [id number] [place] [address] Mar, [facility] [place] [facility] [address] [id number] [place] [address] Mar, [facility] [place] [facility] [address] [id number] [place] [address] Mar, [facility] [place] [facility] [address] [id number] [place] [address] Mar, [facility] [place] [facility] [address] [id number] [place] [address] 20 Mar, 2014 [facility] [place] [facility] [address] [id number] [place] [address] 20 Mar, 2014 [facility] [place] [facility] [address] [id number] [place] [address] 16 Mar, 2013 [facility] [place] [facility] [address] [id number] [place] [address] 16 Mar, 2013 [facility] [place] [facility] [address] [id number] [place] [address] 15 Mar, 2014 [facility] [place] [facility] [address] [id number] [place] [address] 14 Mar, 2014 [facility] [place] [facility] [address] [id number] [place] [address] 14 Mar, 2013 [facility] [place] [facility] [address] [id number] [place] [address] 14 Mar, 2013 [facility] [place] [facility] [address] [id number] [place] [address] 14 Mar, 2014 [facility] [place] [facility] [address] [id number] [place] [address] Mar, 2013 [facility] [place] [facility] [address] [id number] [place] [address] Mar, 2013 [facility] [place] [facility] [address] [id number] [place] [address] Mar, [facility] [place] [facility] [address] [id number] [place] [address] Mar, [facility] [place] [facility] [address] [id number] [place] [address] 30 Feb, 2013 [facility] [place] [facility] [address] [id number] [place] [address] 30 Feb, 2013 [facility] [place] [facility] [address] [id number] [place] [address] 30 Feb, 2013 [facility] [place] [facility] [address] [id number] [place] [address] 30 Feb, 2013 [facility] [place] [facility] [address] [id number] [place] [address] 26 Sep, 2013 [facility] [place] [facility] [address] [id number] [address] 26 Sep, 2013 [facility] [place] [facility] [address] [id number] [place] [address] 09 Sep, 2013 [facility] [place] [facility] [address] [id number] [place] [address] 09 Sep, 2013 [facility] [place] [facility] [address] [id number] [place] [address] 03 Sep, 2013 [facility] [place] [facility] [address] [id number] [place] [address] Feb, 2013 [facility] [place] [facility] [address] [id number] [place] [address] Feb, 2013 [facility] [place] [facility] [address] [id number] [place] [address] Feb, [facility] [place] [facility] [address] [id number] [place] [address] Jan, [facility] [place] [facility] [address] [id number] [place] [address] Jan, [facility] [place] [facility] [address] [id number] [place] [address] Jan, [facility] [place] [facility] [address] [id number] [place] [address] Jan, [facility] [place] [facility] [address] [id number] [place] [address] Jan, [facility] [place] [facility] [address] [id number] [place] [address] Jan, [facility] [place] [facility] [address] [id number] [place] [address] Jan, [facility] [place] [facility] [address] [id number] [place] [address] Jan, [facility] [place] [facility] [address] [id number] [place] [address] Jan, [facility] [place] [facility] [address] [id number] [place] [address] Jan, [facility] [place] [facility] [address] [id number] [place] [address] Jan, [facility] [place] [facility] [address] [id number] [place] [address] Jan, [facility] [place] [facility] [address] [id number] [place] [address] Jan, [facility] [place] [facility] [address] [id number] [facility] [place] [address] Dec, [facility] [place] [facility] [address] [id number] [place] [address] Dec, [facility] [place] [facility] [address] [id number] [place] [address] Dec, [facility] [place] [facility] [address] [id number] [place] [address] Dec, [facility] [place] [facility] [address] [id number] [place] [address] Dec, [facility] [place] [facility] [address] [id number] [place] [address] Dec, [facility] [place] [facility] [address] [id number] [place] [address] Dec, [facility] [place] [facility] [address] [id number] [place] [address] Dec, [facility] [place] [facility] [address] [id number] [place] [address] Dec, [facility] [place] [facility] [address] [id number] [place] [address] Dec, [facility] [place] [facility] [address] [id number] [place] [address] Dec, [facility] [place] [facility] [address] [id number] [place] [address] Dec, [facility] [place] [facility] [address] [id number] [place] [address] Dec, [facility] [place] [facility] [address] [id number] [place] [address] Dec, [facility] [place] [facility] [address] [id number] [place] [address] Dec, [facility] [place] [facility] [address] [id number] [place] [address] Dec, [facility] [place] [facility] [address] [id number] [place] [address] Dec, [facility] [place] [facility] [address] [id number] [place] [address] Dec, [facility] [place] [facility] [address] [id number] [place] [address] Nov, [facility] [place] [facility] [address] [id number] [place] [address] Nov, [facility] [place] [facility] [address] [id number] [place] [address] Nov, [facility] [place] [facility] [address] [id number] [place] [address] Nov, [facility] [place] [facility] [address] [id number] [place] [address] Nov, [facility] [place] [facility] [address] [id number] [place] [address] Nov, [facility] [place] [facility] [address] [id number] [place] [address] Nov, [facility] [place] [facility] [address] [id number] [place] [address] Nov, [facility] [place] [facility] [address] [id number] [address] Nov, [facility] [place] [facility] [address] [id number], [place] [address] Nov, [facility] [place] [facility] [address] [id number] [place] [address] Nov, [facility] [place] [facility] [address] [id number] [place] [address] Nov, [facility] [place] [facility] [address] [id number] [place] [address] Nov, [facility] [place] [facility] [address] [id number] [place] [address] Nov, [facility] [place] [facility] [address] [id number] [place] [address] Nov, [facility] [place] [facility] [address] [id number] [place] [address] Nov, [facility] [place] [facility] [address] [id number] [place] [address] Nov, [facility] [place] [facility] [address] [id number] [place] [address] Nov, [facility] [place] [facility] [address] [id number] [place] [address] Nov, [facility] [place] [facility] [address] [id number] [place] [address] Nov, [facility] [place] [facility] [address] [id number] [place] [address] October, [facility] [place] [facility] [address] [id number] [place] [address] October, [facility] [place] [facility] [address] [id number] [place] [address] October, [facility] [place] [facility] [address] [id number] [place] [address] October, [facility] [place] [facility] [address] [id number] [place] [address] Sep, [facility] [place] [facility] [address] [id number] [place] [address] Sep, [facility] [place] [facility] [address] [id number] [place] [address] Sep, [facility] [place] [facility] [address] [id number] [place] [address] Sep, [facility] [place] [facility] [address] [id number] [place] [address] Sep, [facility] [place] [facility] [address] [id number] [place] [address] Sep, [facility] [place] [facility] [address] [id number] [place] [address] Sep, [facility] [place] [facility] [address] [id number] [place] [address] Sep, [facility] [place] [facility] [address] [id number] [place] [address] Sep, [facility] [place] [facility] [address] [id number] [place] [address] Aug, [facility] [place] [facility] [address] [id number] [place] [address] Aug, [facility] [place] [facility] [address] [id number] [place] [address] Aug, [facility] [place] [facility] [address] [id number] [place] [address] Aug, [facility] [place] [facility] [address] [id number] [place] [address] Aug, [facility] [place] [facility] [address] [id number] [place] [address] Aug, [facility] [place] [facility] [address] [id number] [place] [address] Aug, [facility] [place] [facility] [address] [id number] [place] [address] Aug, [facility] [place] [facility] [address] [id number] [place] [address] Jul, [facility] [place] [facility] [address] [id number] [place] [address] Jul, [facility] [place] [facility] [address] [id number] [place] [address] Jun, [facility] [place] [facility] [address] [id number] [address] Jun, [facility] [address] [id number] [place] [address] Jun, [facility] [place] [facility] [address] [id number] [place] [address] Jun, [facility] [place] [facility] [address] [id number] [place] [address] Jun, [facility] [place] [facility] [address] [id number] [place] [address] Jun, [facility] [place] [facility] [address] [id number] [place] [address] Jun, [facility] [place] [facility] [address] [id number] [place] [address] Jun, [facility] [place] [facility] [address] [id number] [place] [address] Jun, [facility] [place] [facility] [address] [id number] [place] [address] Jun, [facility] [place] [facility] [address] [id number] [place] [address] Jun, [facility] [place] [facility] [address] [facility] [id number] [place] [address] Jun, [facility] [place] [facility] [address] [id number] [place] [address] May, [facility] [place] [facility] [address] [id number] [place] [address] May, [facility] [place] [facility] [address] [id number] [place] [address] May, [facility] [place] [facility] [address] [id number] [place] [address] May, [facility] [place] [facility] [address] [id number] [place] [address] May, [facility] [place] [facility] [address] [id number] [place] [address] 31 May, 2013 [facility] [address] [id number] [place] [address] May, [facility] [place] [facility] [address] [id number] [place] [address] May, [facility] [place] [facility] [address] [id number] [place] [address] May, [facility] [place] [facility] [address] [id number] [place] [address] May, [facility] [place] [facility] [address] [id number] [place] [address] May, [facility] [place] [facility] [address] [id number] [place] [address] May, [facility] [place] [facility] [address] [id number] [place] [address] May, [facility] [place] [facility] [address] [id number] [place] [address] Apr, [facility] [place] [facility] [address] [id number] [place] [address] Apr, [facility] [place] [facility] [address] [id number] [place] [address] Mar, [facility] [place] [facility] [address] [id number] [place] [address] Mar, [facility] [place] [facility] [address] [id number] [place] [address] 24 Feb, 2013 [facility] [place] [facility] [address] [id number] [place] [address] 23 Feb, 2013 [facility] [place] [facility] [address] [id number] [place] [address] 05 Feb, 2013 [facility] [place] [facility] [address] [id number] [place] [address] Feb, [facility] [place] [facility] [address] [id number] [place] [address] Jan, [facility] [place] [facility] [address] [id number] [place] [address] Jan, [facility] [place] [facility] [address] [id number] [place] [address] Jan, [facility] [place] [facility] [address] [id number] [place] [address] Jan, [facility] [place] [facility] [address] [id number] [place] [address] Jan, [facility] [place] [facility] [address] [id number] [place] [address] Jan, [facility] [place] [facility] [address] [id number] [place] [address] Dec, [facility] [place] [facility] [address] [id number] [place] [address] Dec, [facility] [place] [facility] [address] [id number] [place] [address] Dec, [facility] [place] [facility] [address] [id number] [place] [address] Dec, [facility] [place] [facility] [address] [id number] [place] [address] Nov, [facility] [place] [facility] [address] [id number] [place] [address] October, [facility] [place] [facility] [address] [id number] [place] [address] October, [facility] [place] [facility] [address] [id number] [place] [address] October, [facility] [place] [facility] [address] [id number] [place] [address] Sep, [facility] [place] [facility] [address] [id number] [place] [address] Sep, [facility] [place] [facility] [address] [id number] [place] [address] Jun, [facility] [place] [facility] [address] [id number] [place] [address] Jun, [facility] [place] [facility] [address] [id number] [place] [address] Jun, [facility] [place] [facility] [address] [id number] [place] [address] Apr, [facility] [place] [facility] [address] [id number] [place] [address] Apr, [facility] [place] [facility] [address] [id number] [place] [address] Apr, [facility] [place] [facility] [address] [id number] [place] [address] Apr, [facility] [place] [facility] [address] [id number] [place] [address] Mar, [facility] [place] [facility] [address] [id number] [place] [address] Mar, [facility] [place] [facility] [address] [id number] [place] [address] Mar, [facility] [place] [facility] [address] [id number] [place] [address] Mar, [facility] [place] [facility] [address] [id number] [place] [address] 29 Feb, 2012 [facility] [place] [facility] [address] [id number] [place] [address] 27 Feb, 2012 [facility] [place] [facility] [address] [id number] [place] [address] Feb, [facility] [place] [facility] [address] [id number] [place] [address] Jan, [facility] [place] [facility] [address] [id number] [place] [address] Jan, [facility] [place] [facility] [address] [id number] [place] [address] Jan, [facility] [place] [facility] [address] [id number] [place] [address] Jan, [facility] [place] [facility] [address] [id number] [place] [address] Dec, [facility] [place] [facility] [address] [id number] [place] [address] Dec, [facility] [place] [facility] [address] [id number] [place] [address] Nov, [facility] [place] [facility] [address] [id number] [place] [address] Nov, [facility] [place] [facility] [address] [id number] [place] [address] October, [facility] [place] [facility] [address] [id number] [place] [address] October, [facility] [place] [facility] [address] [id number] [place] [address] October, [facility] [place] [facility] [address] [id number] [place] [address] Sep, [facility] [place] [facility] [address] [id number] [place] [address] Sep, [facility] [place] [facility] [address] [id number] [place] [address] Sep, [facility] [place] [facility] [address] [id number] [place] [address] Aug, [facility] [place] [facility] [address] [id number] [place] [address] Aug, [facility] [place] [facility] [address] [id number] [place] [address] 15 Aug, 2011 [facility] [address] [id number] [place] [address] 15 Aug, 2011 [facility] [address] [id number] [place] [address] 07 Aug, 2011 [facility] [address] [id number] [place] [address] 23 Jul, 2011 [facility] [address] [id number] [place] [address] 16 Jul, 2011 [facility] [address] [id number] [place] [address] 13 Jul, 2011 [facility] [address] [id number] [place] [address] 09 Jul, 2011 [facility] [address] [facility] [id number] [place] [address] 07 Jul, 2011 [facility] [address] [id number] [place] [address] 06 Jul, 2011 [facility] [address] [id number] [place] [address] Jul, [facility] [address] [facility] [id number] [place] [address] Jul, [facility] [address] [facility] [id number] [place] [address] Jun, [facility] [address] [id number] [place] [address] Jun, [facility] [address] [id number] [place] [address] May, [facility] [place] [facility] [address] [id number] [place] [address] May, [facility] [address] [facility] [id number] [address] May, [facility] [place] [facility] [address] [id number] [place] [address] 08 May, 2011 [facility] [place] [facility] [address] [id number] [place] [address] 30 Apr, 2011 [facility] [place] [facility] [address] [id number] [place] [address] Apr, [facility] [place] [facility] [address] [id number] [place] [address] Apr, [facility] [place] [facility] [address] [id number] [place] [address] Mar, [facility] [place] [facility] [address] [id number] [place] [address] Mar, [facility] [place] [facility] [address] [id number] [place] [address] Mar, [facility] [place] [facility] [address] [id number] [place] [address] Mar, [facility] [place] [facility] [address] [id number] [place] [address] Dec, [facility] [place] [facility] [address] [id number] [place] [address] October, [facility] [place] [facility] [address] [id number] [place] [address] May, [facility] [place] [facility] [address] [id number] [place] [address] May, [facility] [place] [facility] [address] [id number] [place] [address] May, [facility] [place] [facility] [address] [id number] [place] [address] 06 May, 2010 [facility] [place] [facility] [address] [id number] [place] [address] 26 Mar, 2010 [facility] [place] [facility] [address] [id number], [place] [address] Mar, [facility] [address] [id number] [address] May, [facility] [address] [id number] [address] May, [facility] [address] [id number] [address] May, [facility] [address] [id number] [address] May, [facility] [address] [id number] [address] Apr, [facility] [id number] [address] Apr, [facility] [address] [id number] [address] October, IMMUNIZATIONS No Known Immunizations SOCIAL HISTORY Never Assessed REASON FOR VISIT [facility] [place] PLAN OF CARE VITAL SIGNS MEDICATIONS Unknown [...]
--- OUTSIDE RECORDS SUMMARY | 2019-01-13 10:21 | XMS REPORT ---
Author Author Migration, Doctor Organization [facility] Address Unknown Phone Unavailable Care Team Providers Care Seo Strategist Name Role Phone Migration, Doctor Unavailable Unavailable PROBLEMS Type Condition ICD9-CM Code IHN78-VB Code Onset Dates Condition Status SNOMED Code Problem History of illicit drug use Z87.898 Active 594294594 Problem MRSA (methicillin resistant staph aureus) culture positive Z22.322 Active 610955941 Problem Snoring R06.83 Active 35651354 Problem Neuropathy G62.9 Active 917384423 Problem Essential hypertension I10 Active 85678802 Problem Fatigue R53.83 Active 85615046 Problem Panic disorder without agoraphobia F41.0 Active 40382647 Problem Upper respiratory tract infection, unspecified type J06.9 Active 57559008 Problem Varicose veins of both lower extremities I83.93 Active 46401523 Problem Other chronic pain G89.29 Active 74424513 Problem Mild persistent asthma without complication J45.30 Active 564426594 Problem On home oxygen therapy Z99.81 Active 893164606140 Problem Mild chronic obstructive pulmonary disease J44.9 Active 200641827 Problem Major depressive disorder, recurrent episode, moderate F33.1 Active 901379923 Problem 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 Active 00090165 Problem COPD exacerbation J44.1 Active 073162659 Problem Mood disorder F39 Active 10274839 Problem Dysthymic disorder F34.1 Active 30936908 Problem Psychotic disorder F29 Active 66692353 Problem Impaired circulation I99.9 Active 81958626 Problem Agoraphobia F40.00 Active 72925850 Problem COPD (chronic obstructive pulmonary disease) with chronic bronchitis J44.9 Active 219163824 Problem Exertional asthma J45.990 Active 62380898 Problem 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 663860595 Problem Arthritis M19.90 Active 3762454 ALLERGIES No Information ENCOUNTERS Encounter Location Date Diagnosis [facility] [address] [facility] [id number] [address] Nov, [facility] [address] [address] Sep, [facility] [address] [id number] [place] [address] Sep, [place] [id number] [place] [address] Sep, Panic disorder without agoraphobia F41.0 [place] [id number] [place] [address] Sep, Panic disorder without agoraphobia F41.0 [place] [id number] [place] [address] Aug, Panic disorder without agoraphobia F41.0 ; Major depressive disorder, recurrent episode, moderate F33.1 ; 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 ; Psychotic disorder F29 ; Tardive dyskinesia G24.01 and Morbid obesity E66.01 [place] [address] [place] [address] Aug, Dysthymic disorder F34.1 and Psychotic disorder F29 [place] [id number] [place] [address] Aug, Encounter for Medicare annual wellness exam Z00.00 ; Morbid obesity E66.01 and 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 [place] [address] [place] [address] Aug, Dysthymic disorder F34.1 and Psychotic disorder F29 [place] [address] [place] [address] Aug, Neuropathy G62.9 ; Onychomycosis B35.1 and Xerosis of skin L85.3 [place] [address] [place] [address] Jul, [place] [address] [place] [address] 13 Jul, 2018 Mood disorder F39 ; Wheezing R06.2 ; Choking, initial encounter T17.308A and Coughing R05 [place] [address] [address] 07 Jul, 2018 Low back pain M54.5 [facility] [address] [address] Jun, Flu-like symptoms R68.89 ; BMI 45.0-49.9, adult Z68.42 ; COPD exacerbation J44.1 and Acute bronchitis J20.9 [place] [address] [address] Jun, [place] [address] [address] May, [place] [address] [address] May, Onychomycosis B35.1 and 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 [place] [address] [address] May, Low back pain M54.5 and Edema leg R60.0 [place] [address] [address] May, BMI 45.0-49.9, adult Z68.42 ; Well woman exam with routine gynecological exam Z01.419 and Breast cancer screening Z12.31 [place] [id number] [place] [address] Apr, Arthritis M19.[address] [address] 16 Apr, 2018 Arthritis M19.90 and Otalgia of both ears H92.03 [place] [address] [address] Feb, [facility] [id number] [place] [address] Feb, Low back pain M54.5 ; Other chronic pain G89.29 ; Exertional asthma J45.990 and Encounter for immunization Z23 [facility] [id number] [place] [address] Feb, Skin fissures R23.4 ; Neuropathy G62.9 and Onychomycosis B35.1 [place] [address] [address] 05 Feb, 2018 Dysthymic disorder F34.1 [place] [address] [address] 04 Feb, 2018 [place] [address] [address] Jan, [place] [address] [address] Jan, Abrasion of right elbow, initial encounter S50.311A ; Abrasion, right knee, initial encounter S80.211A and Sprain of other ligament of right ankle, initial encounter S93.491A [place] [address] [address] Jan, [facility] [address] [address] Jan, Injury of left ankle, initial encounter S99.912A ; Fall down stairs, initial encounter W10.8XXA and BMI 45.0-49.9, adult Z68.42 [place] [address] [address] Jan, COPD exacerbation J44.1 [place] [address] [address] 13 Jan, 2018 Dysfunction of both eustachian 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 [place] [address] [address] Jan, Bronchitis J40 and Acute suppurative otitis media of left ear without spontaneous rupture of tympanic membrane, recurrence not specified H66.002 [place] [id number] [place] [address] Jan, [place] [address] [address] Jan, Bronchitis J40 and BMI 40.0-44.9, adult Z68.41 [place] [address] [address] Jan, [place] [address] [address] Dec, Gastric pain R10.9 [place] [address] [address] Dec, [place] [address] [address] Dec, History of illicit drug use Z87.898 ; Neuropathy G62.9 ; COPD (chronic obstructive pulmonary disease) with chronic bronchitis J44.9 and Acute pain of right knee M25.561 [place] [id number] [place] [address] Nov, [place] [address] [id number] [place] [address] Nov, Onychomycosis B35.1 and Contusion of left foot, subsequent encounter S90.32XD [place] [address] [address] Nov, COPD exacerbation J44.1 [place] [address] [address] Sep, [place] [id number] [place] [address] Sep, Dysthymic disorder F34.1 ; Tobacco abuse Z72.0 ; Pain in right knee M25.561 ; Pain in left knee M25.562 ; Other chronic pain G89.29 and BMI 40.0- 44.9, adult Z68.41 [place] [id number] [place] [address] Aug, Major depressive disorder, recurrent episode, moderate F33.1 and 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 [address] 14 Aug, 2017 Dysthymic disorder F34.1 ; Non-pressure chronic ulcer of left thigh, unspecified ulcer stage L97.129 ; Tobacco abuse Z72.0 ; Mild chronic obstructive pulmonary disease J44.9 and Forgetfulness R68.[address] [address] 09 Aug, 2017 Onychomycosis B35.1 ; Fissure in skin of foot R23.4 and Foot callus L84 [facility] [address] [address] Jul, Right medial knee pain M25.561 ; Upper respiratory tract infection, unspecified type J06.9 and BMI 40.0-44.9, adult Z68.41 [facility] [place] [id number] [place] [address] 08 Jul, 2017 Nausea and vomiting, intractability of vomiting not specified, unspecified vomiting type R11.2 ; Left ear pain H92.02 and Gastric pain R10.9 [place] [id number] [place] [address] Apr, Encounter for immunization Z23 [address] [address] Apr, Onychomycosis B35.1 ; Xerosis of skin L85.3 ; Neuropathy G62.9 and 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 [address] Jan, Onychomycosis B35.1 and Neuropathy G62.9 [facility] [address] [address] Dec, [facility] [address] [address] Dec, [facility] [id number] [place] [address] Nov, [facility] [address] [address] Aug, [facility] [address] [place] [address] Aug, [facility] [address] [address] Jul, [facility] [address] [address] Jul, [facility] [address] [address] Jul, Decubitus ulcer of left thigh, stage 2 L89.892 [facility] [address] [address] 17 Jul, 2016 Decubitus ulcer of left thigh, stage 2 L89.892 [facility] [address] [address] 17 Jul, 2016 [facility] [address] [place] [id number] [address] 15 Jul, 2016 Decubitus ulcer of left thigh, stage 2 L89.892 [facility] [address] [place] [id number] [address] 14 Jul, 2016 [facility] [address] [address] 13 Feb, 2017 Cellulitis of other specified site L03.818 ; Illicit drug use F19.90 and Decubitus ulcer of left thigh, stage 2 L89.892 [facility] [address] [address] Jul, [facility] [id number] [place] [address] Jul, Cellulitis of right breast N61.0 [facility] [id number] [place] [address] Jun, [facility] [id number] [place] [address] Jun, [place] [id number] [place] [address] Jun, Wheezing R06.2 and Arthralgia, unspecified joint M25.50 [place] [address] [address] May, [facility] [id number] [place] [address] May, [place] [address] [id number] [place] [address] May, [place] [address] [id number] [place] [address] May, Shortness of breath R06.02 [facility] [id number] [place] [address] May, Onychomycosis B35.1 and Fissure in skin of foot R23.4 [facility] [id number] [place] [address] Apr, [facility] [id number] [place] [address] 18 Apr, 2016 Dizziness R42 [facility] [address] [address] 14 Apr, 2016 Shortness of breath R06.02 ; Essential hypertension I10 ; Dizziness R42 and On home oxygen therapy Z99.81 [facility] [id number] [place] [address] Apr, [facility] [address] [address] 08 Apr, 2016 [facility] [id number] [place] [address] Apr, [facility] [address] [place] [address] Apr, [facility] [id number] [place] [address] Apr, [facility] [address] [place] [address] Apr, [facility] [id number] [place] [address] Apr, [facility] [address] [place] [address] Mar, Mild chronic obstructive pulmonary disease J44.9 [facility] [address] [address] Mar, [facility] [address] [address] Mar, Epigastric pain R10.13 ; Low back pain M54.5 ; Other chronic pain G89.29 and Breast cancer screening Z12.39 [facility] [address] [address] Mar, [facility] [address] [place] [address] Mar, [facility] [address] [address] Feb, [facility] [id number] [address] 08 Feb, 2016 [facility] [address] [place] [address] Feb, Fissure in skin of foot R23.4 and Onychomycosis B35.1 [place] [address] [address] Jan, Agoraphobia F40.00 [place] [address] [id number] [place] [address] Dec, Agoraphobia F40.00 [place] [address] [place] [address] Dec, Mild persistent asthma without complication J45.30 ; Dysthymic disorder F34.1 and Upper respiratory tract infection, unspecified type J06.9 [place] [address] [id number] [place] [address] Nov, Agoraphobia F40.00 [place] [address] [address] October, Agoraphobia F40.00 [place] [address] [place] [address] Sep, Panic disorder without agoraphobia F41.0 ; Agoraphobia F40.00 and Dysthymic disorder F34.1 [place] [address] [address] Sep, Panic attacks F41.0 [place] [address] [place] [address] Sep, [place] [address] [place] [address] Sep, Panic disorder without agoraphobia F41.0 ; Varicose veins of both lower extremities I83.93 and Fatigue R53.83 [place] [id number] [address] 14 Sep, 2015 Fatigue R53.83 [place] [address] [id number] [place] [address] 05 Sep, 2015 [place] [address] [id number] [place] [address] Aug, [place] [id number] [place] [address] Aug, [place] [address] [id number] [place] [address] Aug, 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 [place] [address] [id number] [place] [address] Aug, Panic disorder without agoraphobia F41.0 ; Agoraphobia F40.00 and Dysthymic disorder F34.1 [place] [id number] [place] [address] Aug, Shortness of breath R06.02 ; Panic attacks F41.0 ; COPD (chronic obstructive pulmonary disease) J44.9 ; Tobacco abuse Z72.0 ; Family history of diabetes mellitus Z83.3 and Weight gain R63.[address] [place] [address] Aug, [address] [place] [address] Jul, [address] [place] [address] Jun, Onychomycosis B35.1 ; Neuropathy G62.9 and Impaired circulation I99.9 [address] [place] [address] Mar, Fissure in skin of foot R23.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 [place] [address] [address] 18 Feb, 2015 Family history of coronary arteriosclerosis V17.3 [facility] [id number] [place] [address] 15 Feb, 2015 Allergic rhinitis due to pollen 477.0 ; Unspecified breast screening V76.10 ; Anxiety 300.00 and Family history of coronary arteriosclerosis V17.3 [facility] [id number] [place] [address] Jan, [facility] [id number] [place] [address] Dec, [facility] [id number] [place] [address] Dec, Onychomycosis 110.1 and Skin fissures 709.8 [facility] [id number] [place] [address] Sep, [facility] [id number] [address] Sep, [facility] [address] [place] [address] Aug, [facility] [address] [address] Aug, [facility] [address] [address] Jul, [facility] [address] [address] Jul, [facility] [id number] [place] [address] Jun, [facility] [address] [address] Jun, [facility] [address] [address] Jun, [facility] [place] [facility] [address] [id number] [place] [address] Jun, [facility] [place] [facility] [address] [id number] [place] [address] Jun, [facility] [place] [facility] [address] [id number] [place] [address] May, [facility] [place] [facility] [address] [id number] [place] [address] May, [facility] [place] [facility] [address] [id number] [place] [address] May, [facility] [place] [facility] [address] [id number] [place] [address] May, [facility] [place] [facility] [address] [id number] [place] [address] May, [facility] [place] [facility] [address] [id number] [place] [address] May, [facility] [place] [facility] [address] [id number] [place] [address] May, [facility] [place] [facility] [address] [id number] [place] [address] May, [facility] [place] [facility] [address] [id number] [place] [address] Apr, [facility] [place] [facility] [address] [id number] [address] Apr, [facility] [place] [facility] [address] [id number] [place] [address] Apr, [facility] [place] [facility] [address] [id number] [place] [address] Apr, [facility] [place] [facility] [address] [id number] [place] [address] Apr, [facility] [place] [facility] [address] [id number] [address] Apr, [facility] [place] [facility] [address] [id number] [place] [address] Apr, [facility] [place] [facility] [address] [id number] [place] [address] Apr, [facility] [place] [facility] [address] [facility] [id number] [place] [address] Apr, [facility] [place] [facility] [address] [id number] [place] [address] Apr, [facility] [place] [facility] [address] [id number] [place] [address] Mar, [facility] [place] [facility] [address] [id number] [place] [address] Mar, [facility] [place] [facility] [address] [id number] [address] Mar, [facility] [place] [facility] [address] [id number] [address] Mar, [facility] [place] [facility] [address] [facility] [id number] [address] Mar, [facility] [place] [facility] [address] [facility] [id number] [address] Mar, [facility] [place] [facility] [address] [id number] [address] Mar, [facility] [place] [facility] [address] [id number] [address] Mar, [facility] [place] [facility] [address] [id number] [address] Mar, [facility] [place] [facility] [address] [facility] [id number] [place] [address] Mar, [facility] [place] [facility] [address] [facility] [id number] [place] [address] Mar, [facility] [place] [facility] [address] [id number] [place] [address] 22 Mar, 2013 [facility] [place] [facility] [address] [id number] [place] [address] 22 Mar, 2013 [facility] [place] [facility] [address] [id number] [place] [address] 22 Mar, 2013 [facility] [place] [facility] [address] [id number] [place] [address] 22 Mar, 2013 [facility] [place] [facility] [address] [id number] [place] [address] 20 Mar, 2013 [facility] [place] [facility] [address] [id number] [place] [address] 20 Mar, 2013 [facility] [place] [facility] [address] [id number] [place] [address] 16 Mar, 2014 [facility] [place] [facility] [address] [id number] [place] [address] 16 Mar, 2014 [facility] [place] [facility] [address] [id number] [place] [address] 15 Mar, 2014 [facility] [place] [facility] [address] [id number] [place] [address] 14 Mar, 2014 [facility] [place] [facility] [address] [id number] [place] [address] 14 Mar, 2014 [facility] [place] [facility] [address] [id number] [place] [address] 14 Mar, 2014 [facility] [place] [facility] [address] [id number] [place] [address] 14 Mar, 2014 [facility] [place] [facility] [address] [id number] [place] [address] 09 Mar, 2014 [facility] [place] [facility] [address] [id number] [place] [address] 09 Mar, 2014 [facility] [place] [facility] [address] [id number] [place] [address] Mar, [facility] [place] [facility] [address] [id number] [place] [address] Mar, 2013 [facility] [place] [facility] [address] [id number] [place] [address] Feb, 2013 [facility] [place] [facility] [address] [id number] [place] [address] Feb, 2013 [facility] [place] [facility] [address] [id number] [place] [address] 30 Feb, 2013 [facility] [place] [facility] [address] [id number] [place] [address] Feb, 2013 [facility] [place] [facility] [address] [id number] [place] [address] Feb, 2013 [facility] [place] [facility] [address] [id number] [place] [address] Feb, 2013 [facility] [place] [facility] [address] [id number] [place] [address] Feb, 2013 [facility] [place] [facility] [address] [id number] [place] [address] Feb, 2013 [facility] [place] [facility] [address] [id number] [place] [address] Feb, 2013 [facility] [place] [facility] [address] [id number] [address] Feb, 2013 [facility] [place] [facility] [address] [id number] [place] [address] Feb, 2013 [facility] [place] [facility] [address] [id number] [place] [address] Feb, 2013 [facility] [place] [facility] [address] [id number] [place] [address] Jan, [facility] [place] [facility] [address] [id number] [place] [address] Jan, [facility] [place] [facility] [address] [id number] [place] [address] Jan, [facility] [place] [facility] [address] [id number] [place] [address] Jan, [facility] [place] [facility] [address] [id number] [place] [address] Jan, [facility] [place] [facility] [address] [id number] [place] [address] Jan, [facility] [place] [facility] [address] [id number] [place] [address] Jan, [facility] [place] [facility] [address] [id number] [place] [address] Jan, [facility] [place] [facility] [address] [id number] [place] [address] Jan, [facility] [place] [facility] [address] [id number] [place] [address] Jan, [facility] [place] [facility] [address] [id number] [place] [address] Jan, [facility] [place] [facility] [address] [id number] [place] [address] Jan, [facility] [place] [facility] [address] [id number] [place] [address] Jan, [facility] [place] [facility] [address] [id number] [place] [address] Dec, [facility] [place] [facility] [address] [id number] [place] [address] Dec, [facility] [place] [facility] [address] [id number] [place] [address] Dec, [facility] [place] [facility] [address] [id number] [place] [address] Dec, [facility] [place] [facility] [address] [id number] [place] [address] Dec, [facility] [place] [facility] [address] [id number] [place] [address] Dec, [facility] [place] [facility] [address] [id number] [place] [address] Dec, [facility] [place] [facility] [address] [id number] [place] [address] Dec, [facility] [place] [facility] [address] [id number] [place] [address] Dec, [facility] [place] [facility] [address] [id number] [place] [address] Dec, [facility] [place] [facility] [address] [id number] [place] [address] Dec, [facility] [place] [facility] [address] [id number] [place] [address] Dec, [facility] [place] [facility] [address] [id number] [place] [address] Dec, [facility] [place] [facility] [address] [id number] [place] [address] Dec, [facility] [place] [facility] [address] [id number] [place] [address] Dec, [facility] [place] [facility] [address] [id number] [place] [address] Dec, [facility] [place] [facility] [address] [id number] [place] [address] Dec, [facility] [place] [facility] [address] [id number] [place] [address] Dec, [facility] [place] [facility] [address] [id number] [place] [address] Nov, [facility] [place] [facility] [address] [id number] [place] [address] Nov, [facility] [place] [facility] [address] [id number] [place] [address] Nov, [facility] [place] [facility] [address] [id number] [place] [address] Nov, [facility] [place] [facility] [address] [id number] [place] [address] Nov, [facility] [place] [facility] [address] [id number] [place] [address] Nov, [facility] [place] [facility] [address] [id number] [place] [address] Nov, [facility] [place] [facility] [address] [id number] [place] [address] Nov, [facility] [place] [facility] [address] [id number] [place] [address] Nov, [facility] [place] [facility] [address] [id number] [place] [address] Nov, [facility] [place] [facility] [address] [id number] [place] [address] Nov, [facility] [place] [facility] [address] [id number] [place] [address] Nov, [facility] [place] [facility] [address] [id number] [place] [address] Nov, [facility] [place] [facility] [address] [id number] [place] [address] Nov, [facility] [place] [facility] [address] [id number] [place] [address] Nov, [facility] [place] [facility] [address] [id number] [place] [address] Nov, [facility] [place] [facility] [address] [id number] [place] [address] Nov, [facility] [place] [facility] [address] [id number] [place] [address] Nov, [facility] [place] [facility] [address] [id number] [place] [address] Nov, [facility] [address] [id number] [place] [address] Nov, [facility] [place] [facility] [address] [id number] [place] [address] October, [facility] [address] [id number] [place] [address] October, [facility] [place] [facility] [address] [id number] [place] [address] October, [facility] [address] [id number] [place] [address] October, [facility] [address] [id number] [place] [address] Sep, [facility] [address] [id number] [place] [address] Sep, [facility] [address] [id number] [place] [address] Sep, [facility] [address] [id number] [place] [address] Sep, [facility] [address] [id number] [place] [address] Sep, [facility] [place] [facility] [address] [id number] [place] [address] Sep, [facility] [place] [facility] [address] [id number] [place] [address] Sep, [facility] [place] [facility] [address] [id number] [place] [address] Sep, [facility] [place] [facility] [address] [id number] [place] [address] Sep, [facility] [place] [facility] [address] [id number] [place] [address] Aug, [facility] [place] [facility] [address] [id number] [place] [address] Aug, [facility] [place] [facility] [address] [id number] [place] [address] Aug, [facility] [place] [facility] [address] [id number] [place] [address] Aug, [facility] [place] [facility] [address] [id number] [place] [address] Aug, [facility] [place] [facility] [address] [id number] [place] [address] Aug, [facility] [place] [facility] [address] [id number] [place] [address] Aug, [facility] [place] [facility] [address] [id number] [place] [address] Aug, [facility] [place] [facility] [address] [id number] [place] [address] Jul, [facility] [place] [facility] [address] [id number] [place] [address] Jul, [facility] [place] [facility] [address] [id number] [place] [address] Jun, [facility] [place] [facility] [address] [id number] [place] [address] Jun, [facility] [place] [facility] [address] [id number] [place] [address] Jun, [facility] [place] [facility] [address] [id number] [place] [address] Jun, [facility] [place] [facility] [address] [id number] [place] [address] Jun, [facility] [place] [facility] [address] [id number] [place] [address] Jun, [facility] [place] [facility] [address] [id number] [place] [address] Jun, [facility] [address] [id number] [place] [address] 15 Jun, 2013 [facility] [place] [facility] [address] [id number] [place] [address] 15 Jun, 2013 [facility] [address] [id number] [place] [address] 14 Jun, 2013 [facility] [place] [facility] [address] [id number] [place] [address] Jun, [facility] [place] [facility] [address] [id number] [place] [address] Jun, [facility] [place] [facility] [address] [id number] [place] [address] 31 May, 2013 [facility] [address] [id number] [place] [address] 31 May, 2013 [facility] [place] [facility] [address] [id number] [place] [address] 31 May, 2013 [facility] [place] [facility] [address] [id number] [place] [address] 31 May, 2013 [facility] [place] [facility] [address] [id number] [place] [address] 31 May, 2013 [facility] [place] [facility] [address] [id number] [place] [address] 31 May, 2013 [facility] [place] [facility] [address] [id number] [place] [address] 26 May, 2013 [facility] [place] [facility] [address] [id number] [place] [address] 23 May, 2013 [facility] [place] [facility] [address] [id number] [place] [address] 23 May, 2013 [facility] [place] [facility] [address] [id number] [place] [address] 16 May, 2013 [facility] [place] [facility] [address] [id number] [place] [address] May, [facility] [place] [facility] [address] [id number] [place] [address] May, [facility] [place] [facility] [address] [id number] [place] [address] May, [facility] [place] [facility] [address] [id number] [place] [address] Apr, [facility] [place] [facility] [address] [id number] [place] [address] Apr, [facility] [place] [facility] [address] [id number] [place] [address] Mar, [facility] [place] [facility] [address] [id number] [place] [address] Mar, [facility] [place] [facility] [address] [id number] [place] [address] Feb, [facility] [place] [facility] [address] [id number] [place] [address] Feb, [facility] [place] [facility] [address] [id number] [place] [address] Feb, [facility] [place] [facility] [address] [id number] [place] [address] Feb, [facility] [place] [facility] [address] [id number] [place] [address] Jan, [facility] [place] [facility] [address] [id number] [place] [address] Jan, [facility] [place] [facility] [address] [id number] [place] [address] Jan, [facility] [place] [facility] [address] [id number] [place] [address] Jan, [facility] [place] [facility] [address] [id number] [place] [address] Jan, [facility] [address] [id number] [place] [address] Jan, [facility] [place] [facility] [address] [id number] [place] [address] Dec, [facility] [place] [facility] [address] [id number] [place] [address] Dec, [facility] [place] [facility] [address] [id number] [place] [address] Dec, [facility] [place] [facility] [address] [id number] [place] [address] Dec, [facility] [place] [facility] [address] [id number] [place] [address] Nov, [facility] [place] [facility] [address] [id number] [place] [address] October, [facility] [place] [facility] [address] [id number] [place] [address] October, [facility] [place] [facility] [address] [id number] [place] [address] October, [facility] [place] [facility] [address] [id number] [place] [address] Sep, [facility] [place] [facility] [address] [id number] [place] [address] Sep, [facility] [place] [facility] [address] [id number] [place] [address] Jun, [facility] [place] [facility] [address] [id number] [place] [address] Jun, [facility] [place] [facility] [address] [id number] [place] [address] Jun, [facility] [place] [facility] [address] [id number] [place] [address] Apr, [facility] [place] [facility] [address] [id number] [place] [address] Apr, [facility] [place] [facility] [address] [id number] [place] [address] Apr, [facility] [place] [facility] [address] [id number] [place] [address] Apr, [facility] [place] [facility] [address] [id number] [place] [address] Mar, [facility] [place] [facility] [address] [id number] [place] [address] Mar, [facility] [place] [facility] [address] [id number] [place] [address] Mar, [facility] [place] [facility] [address] [id number] [place] [address] Mar, [facility] [place] [facility] [address] [id number] [place] [address] Feb, [facility] [place] [facility] [address] [id number] [place] [address] Feb, [facility] [place] [facility] [address] [id number] [place] [address] Feb, [facility] [place] [facility] [address] [id number] [place] [address] Jan, [facility] [place] [facility] [address] [id number] [place] [address] Jan, [facility] [place] [facility] [address] [id number] [place] [address] Jan, [facility] [place] [facility] [address] [id number] [place] [address] Jan, [facility] [place] [facility] [address] [id number] [place] [address] Dec, [facility] [place] [facility] [address] [id number] [place] [address] Dec, [facility] [place] [facility] [address] [id number] [place] [address] Nov, [facility] [place] [facility] [address] [id number] [place] [address] Nov, [facility] [place] [facility] [address] [id number] [place] [address] October, [facility] [place] [facility] [address] [id number] [place] [address] October, [facility] [place] [facility] [address] [id number] [place] [address] October, [facility] [place] [facility] [address] [id number] [place] [address] Sep, [facility] [place] [facility] [address] [id number] [place] [address] Sep, [facility] [place] [facility] [address] [id number] [place] [address] Sep, [facility] [place] [facility] [address] [id number] [place] [address] Aug, [facility] [place] [facility] [address] [id number] [place] [address] Aug, [facility] [place] [facility] [address] [id number] [place] [address] Aug, [facility] [place] [facility] [address] [id number] [address] Aug, [facility] [place] [facility] [address] [id number] [place] [address] Aug, [facility] [place] [facility] [address] [id number] [place] [address] Jul, [facility] [place] [facility] [address] [id number] [place] [address] 16 Jul, 2011 [facility] [place] [facility] [address] [id number] [place] [address] 13 Jul, 2011 [facility] [address] [id number] [place] [address] 09 Jul, 2011 [facility] [address] [id number] [place] [address] 07 Jul, 2011 [facility] [address] [id number] [place] [address] Jul, [facility] [place] [facility] [address] [id number] [place] [address] Jul, [facility] [address] [id number] [place] [address] Jul, [facility] [address] [id number] [place] [address] Jun, [facility] [address] [id number] [address] Jun, [facility] [address] [id number] [place] [address] May, [facility] [address] [id number] [place] [address] May, [facility] [address] [facility] [id number] [place] [address] May, [facility] [address] [id number] [place] [address] May, [facility] [place] [facility] [address] [id number] [place] [address] Apr, [facility] [place] [facility] [address] [id number] [place] [address] Apr, [facility] [place] [facility] [address] [id number] [place] [address] Apr, [facility] [place] [facility] [address] [id number] [place] [address] Mar, [facility] [place] [facility] [address] [id number] [place] [address] 18 Mar, 2011 [facility] [place] [facility] [address] [id number] [place] [address] 18 Mar, 2011 [facility] [place] [facility] [address] [id number] [place] [address] 2011 [facility] [place] [facility] [address] [id number] [place] [address] Dec, [facility] [place] [facility] [address] [id number] [place] [address] October, [facility] [place] [facility] [address] [id number] [place] [address] 28 May, 2010 [facility] [place] [facility] [address] [id number] [place] [address] 13 May, 2010 [facility] [place] [facility] [address] [id number] [place] [address] 13 May, 2010 [facility] [place] [facility] [address] [id number] [place] [address] 06 May, 2010 [facility] [place] [facility] [address] [id number] [place] [address] Mar, [facility] [place] [facility] [address] [id number] [place] [address] Mar, [facility] [place] [facility] [address] [id number] [place] [address] 31 May, 2009 [facility] [place] [facility] [address] [id number] [place] [address] 30 May, 2009 [facility] [place] [facility] [address] [id number] [place] [address] 08 May, 2009 [facility] [place] [facility] [address] [id number] [place] [address] 08 May, 2009 [facility] [place] [facility] [address] [id number] [place] [address] Apr, [facility] [address] [facility] [id number] [place] [address] Apr, [facility] [address] [facility] [id number] [place] [address] October, IMMUNIZATIONS No Known Immunizations SOCIAL HISTORY Never Assessed REASON FOR VISIT EMR[place] [place] PLAN OF CARE VITAL SIGNS MEDICATIONS Unknown [...]
--- OUTSIDE RECORDS SUMMARY | 2019-01-13 10:22 | XMS REPORT ---
Author Author Migration, Doctor Organization [facility] Address Unknown Phone Unavailable Care Team Providers Care Spanish Lecturer Name Role Phone Migration, Doctor Unavailable Unavailable PROBLEMS Type Condition ICD9-CM Code SQT80-ZZ Code Onset Dates Condition Status SNOMED Code Problem History of illicit drug use Z87.898 Active 116518141 Problem MRSA (methicillin resistant staph aureus) culture positive Z22.322 Active 929721452 Problem Snoring R06.83 Active 55519946 Problem Neuropathy G62.9 Active 043644621 Problem Essential hypertension I10 Active 72829303 Problem Fatigue R53.83 Active 07443880 Problem Panic disorder without agoraphobia F41.0 Active 87380388 Problem Upper respiratory tract infection, unspecified type J06.9 Active 73777470 Problem Varicose veins of both lower extremities I83.93 Active 44379946 Problem Other chronic pain G89.29 Active 55584180 Problem Mild persistent asthma without complication J45.30 Active 571069940 Problem On home oxygen therapy Z99.81 Active 952392042032 Problem Mild chronic obstructive pulmonary disease J44.9 Active 088237582 Problem Major depressive disorder, recurrent episode, moderate F33.1 Active 665419587 Problem 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 Active 34322098 Problem COPD exacerbation J44.1 Active 395134888 Problem Mood disorder F39 Active 69076594 Problem Dysthymic disorder F34.1 Active 47386382 Problem Psychotic disorder F29 Active 03348201 Problem Impaired circulation I99.9 Active 66074814 Problem Agoraphobia F40.00 Active 99031683 Problem COPD (chronic obstructive pulmonary disease) with chronic bronchitis J44.9 Active 666360331 Problem Exertional asthma J45.990 Active 32624477 Problem 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 571361125 Problem Arthritis M19.90 Active 1322837 ALLERGIES No Information ENCOUNTERS Encounter Location Date Diagnosis [facility] [address] [facility] [id number] [address] Nov, [place] [id number] [place] [address] Sep, [place] [address] [place] [id number] [place] [address] Sep, [place] [address] [place] [id number] [place] [address] Sep, Panic disorder without agoraphobia F41.0 [place] [address] [place] [id number] [place] [address] Aug, Panic disorder without agoraphobia F41.0 ; Major depressive disorder, recurrent episode, moderate F33.1 ; 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 ; Psychotic disorder F29 ; Tardive dyskinesia G24.01 and Morbid obesity E66.01 [place] [address] [place] [id number] [place] [address] Aug, Dysthymic disorder F34.1 and Psychotic disorder F29 [place] [address] [place] [id number] [place] [address] Aug, Encounter for Medicare annual wellness exam Z00.00 ; Morbid obesity E66.01 and 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 [place] [id number] [place] [address] Aug, Dysthymic disorder F34.1 and Psychotic disorder F29 [place] [address] [place] [id number] [place] [address] Aug, Neuropathy G62.9 ; Onychomycosis B35.1 and Xerosis of skin L85.3 [place] [address] [place] [id number] [place] [address] Jul, [place] [address] [place] [id number] [place] [address] Jul, Mood disorder F39 ; Wheezing R06.2 ; Choking, initial encounter T17.308A and Coughing R05 [place] [address] [place] [id number] [place] [address] 07 Jul, 2018 Low back pain M54.5 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 [place] [address] [address] May, Low back pain M54.5 and Edema leg R60.[address] [address] May, BMI 45.0-49.9, adult Z68.42 ; Well woman exam with routine gynecological exam Z01.419 and Breast cancer screening Z12.[address] [address] Apr, Arthritis M19.90 [place] [address] [place] [id number] [place] [address] 16 Apr, 2018 Arthritis M19.90 and Otalgia of both ears H92.[address] [address] Feb, [place] [address] [address] Feb, Low back pain M54.5 ; Other chronic pain G89.29 ; Exertional asthma J45.990 and Encounter for immunization Z23 [facility] [address] [address] Feb, Skin fissures R23.4 ; Neuropathy G62.9 and Onychomycosis B35.1 [facility] [address] [address] 05 Feb, 2018 Dysthymic disorder F34.1 [place] [address] [address] 04 Feb, 2018 [place] [address] [address] Jan, [place] [address] [address] Jan, Abrasion of right elbow, initial encounter S50.311A ; Abrasion, right knee, initial encounter S80.211A and Sprain of other ligament of right ankle, initial encounter S93.491A [place] [address] [address] Jan, [facility] [address] [address] Jan, Injury of left ankle, initial encounter S99.912A ; Fall down stairs, initial encounter W10.8XXA and BMI 45.0-49.9, adult Z68.42 [place] [address] [place] [id number] [place] [address] Jan, COPD exacerbation J44.1 [place] [address] [address] Jan, Dysfunction of both eustachian 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 [place] [address] [address] Jan, Bronchitis J40 and Acute suppurative otitis media of left ear without spontaneous rupture of tympanic membrane, recurrence not specified H66.002 [place] [address] [place] [id number] [place] [address] Jan, [place] [address] [place] [id number] [place] [address] Jan, Bronchitis J40 and BMI 40.0-44.9, adult Z68.41 [place] [address] [address] Jan, [place] [address] [place] [id number] [place] [address] Dec, Gastric pain R10.9 [place] [address] [address] Dec, [place] [address] [place] [id number] [place] [address] Dec, History of illicit drug use Z87.898 ; Neuropathy G62.9 ; COPD (chronic obstructive pulmonary disease) with chronic bronchitis J44.9 and Acute pain of right knee M25.561 [place] [address] [place] [id number] [place] [address] Nov, [place] [address] [place] [id number] [place] [address] Nov, Onychomycosis B35.1 and Contusion of left foot, subsequent encounter S90.32XD [place] [address] [place] [id number] [place] [address] Nov, COPD exacerbation J44.1 [place] [address] [place] [id number] [place] [address] Sep, [place] [address] [place] [id number] [place] [address] Sep, Dysthymic disorder F34.1 ; Tobacco abuse Z72.0 ; Pain in right knee M25.561 ; Pain in left knee M25.562 ; Other chronic pain G89.29 and BMI 40.0- 44.9, adult Z68.41 [place] [address] [place] [id number] [place] [address] 22 Aug, 2017 Major depressive disorder, recurrent episode, moderate F33.1 and 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 [place] [address] [place] [id number] [place] [address] 14 Aug, 2017 Dysthymic disorder F34.1 ; Non-pressure chronic ulcer of left thigh, unspecified ulcer stage L97.129 ; Tobacco abuse Z72.0 ; Mild chronic obstructive pulmonary disease J44.9 and Forgetfulness R68.89 [place] [address] [address] 09 Aug, 2017 Onychomycosis B35.1 ; Fissure in skin of foot R23.4 and Foot callus L84 [facility] [address] [address] 26 Jul, 2017 Right medial knee pain M25.561 ; Upper respiratory tract infection, unspecified type J06.9 and BMI 40.0-44.9, adult Z68.41 [facility] [address] [address] 08 Jul, 2017 Nausea and vomiting, intractability of vomiting not specified, unspecified vomiting type R11.2 ; Left ear pain H92.02 and Gastric pain R10.[address] [address] Apr, Encounter for immunization Z23 [place] [address] [address] Apr, Onychomycosis B35.1 ; Xerosis of skin L85.3 ; Neuropathy G62.9 and 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 [place] [address] [place] [id number] [place] [address] Jan, Onychomycosis B35.1 and Neuropathy G62.[address] [place] [address] Dec, [facility] [address] [address] Dec, [facility] [address] [address] Nov, [facility] [address] [address] Aug, [facility] [address] [address] Aug, [facility] [address] [address] Jul, [facility] [address] [address] Jul, [facility] [address] [address] Jul, Decubitus ulcer of left thigh, stage 2 L89.892 [facility] [address] [address] 17 Jul, 2016 Decubitus ulcer of left thigh, stage 2 L89.892 [facility] [address] [address] 17 Jul, 2016 [facility] [address] [place] [id number] [address] 15 Jul, 2016 Decubitus ulcer of left thigh, stage 2 L89.892 [facility] [address] [place] [id number] [address] 14 Jul, 2016 [facility] [address] [address] 13 Jul, 2016 Cellulitis of other specified site L03.818 ; Illicit drug use F19.90 and Decubitus ulcer of left thigh, stage 2 L89.892 [facility] [address] [place] [id number] [place] [address] 08 Jul, 2016 [facility] [address] [place] [id number] [place] [address] Jul, Cellulitis of right breast N61.0 [facility] [address] [place] [id number] [place] [address] Jun, [facility] [address] [address] Jun, [facility] [address] [place] [id number] [place] [address] Jun, Wheezing R06.2 and Arthralgia, unspecified joint M25.50 [place] [address] [place] [id number] [place] [address] May, [place] [address] [address] May, [facility] [address] [place] [id number] [place] [address] May, [place] [address] [place] [id number] [place] [address] May, Shortness of breath R06.02 [place] [address] [place] [id number] [place] [address] May, Onychomycosis B35.1 and Fissure in skin of foot R23.4 [place] [address] [place] [id number] [place] [address] Apr, [facility] [address] [place] [id number] [place] [address] 18 Apr, 2016 Dizziness R42 [place] [address] [place] [id number] [place] [address] 14 Apr, 2016 Shortness of breath R06.02 ; Essential hypertension I10 ; Dizziness R42 and On home oxygen therapy Z99.81 [place] [address] [address] Apr, [facility] [address] [address] Apr, [facility] [address] [place] [address] Apr, [facility] [address] [place] [id number] [place] [address] Apr, [facility] [address] [place] [id number] [place] [address], [place] [address] Apr, [facility] [address] [place] [id number] [place] [address], [place] [address] Apr, [facility] [address] [place] [id number] [place] [address] Apr, [facility] [address] [place] [id number] [place] [address] Mar, Mild chronic obstructive pulmonary disease J44.9 [facility] [address] [address] Mar, [facility] [id number] [place] [address] Mar, Epigastric pain R10.13 ; Low back pain M54.5 ; Other chronic pain G89.29 and Breast cancer screening Z12.39 [facility] [address] [address] Mar, [facility] [address] [address] Mar, [facility] [address] [address] Feb, [facility] [address] [address] Feb, [facility] [address] [place] [address] Feb, Fissure in skin of foot R23.4 and Onychomycosis B35.1 [place] [address] [place] [id number] [place] [address] Jan, Agoraphobia F40.00 [place] [address] [place] [id number] [place] [address] Dec, Agoraphobia F40.00 [place] [address] [address] Dec, Mild persistent asthma without complication J45.30 ; Dysthymic disorder F34.1 and Upper respiratory tract infection, unspecified type J06.9 [place] [address] [place] [id number] [place] [address] Nov, Agoraphobia F40.00 [place] [address] [place] [id number] [place] [address] October, Agoraphobia F40.00 [place] [address] [place] [id number] [place] [address] Sep, Panic disorder without agoraphobia F41.0 ; Agoraphobia F40.00 and Dysthymic disorder F34.1 [place] [address] [place] [id number] [place] [address] Sep, Panic attacks F41.0 [place] [address] [place] [id number] [place] [address] Sep, [place] [address] [place] [id number] [place] [address] Sep, Panic disorder without agoraphobia F41.0 ; Varicose veins of both lower extremities I83.93 and Fatigue R53.83 [place] [address] [place] [id number] [place] [address] 14 Sep, 2015 Fatigue R53.83 [place] [address] [place] [id number] [place] [address] Sep, [place] [address] [address] Aug, [place] [address] [place] [address] Aug, [place] [address] [place] [id number] [place] [address] Aug, 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 [place] [address] [place] [id number] [place] [address] Aug, Panic disorder without agoraphobia F41.0 ; Agoraphobia F40.00 and Dysthymic disorder F34.1 [place] [address] [address] Aug, Shortness of breath R06.02 ; Panic attacks F41.0 ; COPD (chronic obstructive pulmonary disease) J44.9 ; Tobacco abuse Z72.0 ; Family history of diabetes mellitus Z83.3 and Weight gain R63.5 [place] [address] [place] [address] Aug, [place] [address] [address] Jul, [place] [address] [place] [address] Jun, Onychomycosis B35.1 ; Neuropathy G62.9 and Impaired circulation I99.9 [place] [address] [address] 09 Mar, 2015 Fissure in skin of foot R23.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 [place] [address] [address] 18 Feb, 2015 Family history of coronary arteriosclerosis V17.3 [place] [address] [address] 15 Feb, 2015 Allergic rhinitis due to pollen 477.0 ; Unspecified breast screening V76.10 ; Anxiety 300.00 and Family history of coronary arteriosclerosis V17.3 [facility] [address] [address] Jan, [facility] [address] [address] Dec, [facility] [address] [address] Dec, Onychomycosis 110.1 and Skin fissures 709.8 [facility] [address] [address] Sep, [facility] [address] [address] Sep, [facility] [address] [address] Aug, [facility] [address] [address] Aug, [facility] [address] [address] Jul, [facility] [address] [address] Jul, [facility] [address] [address] Jun, [facility] [address] [address] Jun, [facility] [address] [address] Jun, [facility] [address] [address] Jun, [facility] [address] [place] [id number] [place] [address] Jun, [facility] [address] [id number] [place] [address] May, [facility] [place] [facility] [address] [id number] [place] [address] May, [facility] [place] [facility] [address] [id number] [place] [address] May, [facility] [place] [facility] [address] [id number] [place] [address] May, [facility] [place] [facility] [address] [id number] [place] [address] May, [facility] [place] [facility] [address] [id number] [place] [address] May, [facility] [place] [facility] [address] [id number] [place] [address] May, [facility] [address] [id number] [place] [address] May, [facility] [place] [facility] [address] [id number] [place] [address] Apr, [facility] [place] [facility] [address] [id number] [place] [address] Apr, [facility] [place] [facility] [address] [id number] [place] [address] Apr, [facility] [place] [facility] [address] [id number] [place] [address] Apr, [facility] [place] [facility] [address] [id number] [place] [address] Apr, [facility] [place] [facility] [address] [id number] [place] [address] Apr, [facility] [place] [facility] [address] [id number] [place] [address] Apr, [facility] [place] [facility] [address] [id number] [place] [address] Apr, [facility] [place] [facility] [address] [id number] [place] [address] Apr, [facility] [place] [facility] [address] [id number] [place] [address] Apr, [facility] [place] [facility] [address] [id number] [place] [address] Mar, [facility] [place] [facility] [address] [id number] [place] [address] Mar, [facility] [place] [facility] [address] [id number] [place] [address] Mar, [facility] [place] [facility] [address] [id number] [place] [address] Mar, [facility] [place] [facility] [address] [id number] [place] [address] Mar, [facility] [place] [facility] [address] [id number] [place] [address] Mar, [facility] [place] [facility] [address] [id number] [place] [address] Mar, [facility] [place] [facility] [address] [id number] [place] [address] Mar, [facility] [place] [facility] [address] [id number] [address] Mar, [facility] [place] [facility] [address] [id number] [place] [address] Mar, [facility] [place] [facility] [address] [id number] [place] [address] Mar, [facility] [place] [facility] [address] [id number] [place] [address] Mar, [facility] [place] [facility] [address] [id number] [place] [address] 22 Mar, 2013 [facility] [place] [facility] [address] [id number] [place] [address] 22 Mar, 2013 [facility] [place] [facility] [address] [id number] [place] [address] 22 Mar, 2013 [facility] [place] [facility] [address] [id number] [place] [address] 20 Mar, 2013 [facility] [place] [facility] [address] [id number] [place] [address] 20 Mar, 2013 [facility] [place] [facility] [address] [id number] [place] [address] 16 Mar, 2013 [facility] [place] [facility] [address] [id number] [place] [address] 16 Mar, 2013 [facility] [place] [facility] [address] [id number] [place] [address] 15 Mar, 2013 [facility] [place] [facility] [address] [id number] [place] [address] 14 Mar, 2013 [facility] [place] [facility] [address] [id number] [place] [address] 14 Mar, 2013 [facility] [place] [facility] [address] [id number] [place] [address] 14 Mar, 2013 [facility] [place] [facility] [address] [id number] [place] [address] 14 Mar, 2013 [facility] [place] [facility] [address] [id number] [place] [address] 09 Mar, 2013 [facility] [place] [facility] [address] [id number] [place] [address] 09 Mar, 2013 [facility] [place] [facility] [address] [id number] [place] [address] 09 Mar, 2013 [facility] [place] [facility] [address] [id number] [place] [address] 09 Mar, 2013 [facility] [place] [facility] [address] [id number] [place] [address] 30 Sep, 2013 [facility] [place] [facility] [address] [id number] [place] [address] 30 Sep, 2013 [facility] [place] [facility] [address] [id number] [place] [address] 30 Feb, 2013 [facility] [place] [facility] [address] [id number] [place] [address] 30 Sep, 2013 [facility] [place] [facility] [address] [id number] [place] [address] 26 Sep, 2013 [facility] [place] [facility] [address] [id number] [place] [address] 26 Feb, 2013 [facility] [place] [facility] [address] [id number] [place] [address] 09 Feb, 2013 [facility] [place] [facility] [address] [id number] [place] [address] 09 Feb, 2013 [facility] [place] [facility] [address] [id number] [place] [address] 03 Feb, 2013 [facility] [place] [facility] [address] [id number] [place] [address] 03 Feb, 2013 [facility] [place] [facility] [address] [id number] [place] [address] Feb, 2013 [facility] [place] [facility] [address] [id number] [place] [address] 03 Feb, 2013 [facility] [place] [facility] [address] [id number] [place] [address] Jan, [facility] [place] [facility] [address] [id number] [place] [address] Jan, [facility] [place] [facility] [address] [id number] [place] [address] 14 Jan, 2014 [facility] [place] [facility] [address] [id number] [place] [address] Jan, [facility] [place] [facility] [address] [id number] [place] [address] Jan, [facility] [place] [facility] [address] [id number] [place] [address] Jan, [facility] [place] [facility] [address] [id number] [place] [address] Jan, [facility] [place] [facility] [address] [id number] [place] [address] Jan, [facility] [place] [facility] [address] [id number] [place] [address] Jan, [facility] [place] [facility] [address] [id number] [place] [address] Jan, [facility] [place] [facility] [address] [id number] [place] [address] Jan, [facility] [place] [facility] [address] [id number] [place] [address] Jan, [facility] [place] [facility] [address] [id number] [place] [address] Jan, [facility] [place] [facility] [address] [id number] [place] [address] Dec, [facility] [place] [facility] [address] [id number] [place] [address] Dec, [facility] [place] [facility] [address] [id number] [place] [address] Dec, [facility] [place] [facility] [address] [id number] [place] [address] Dec, [facility] [place] [facility] [address] [id number] [place] [address] Dec, [facility] [place] [facility] [address] [id number] [place] [address] Dec, [facility] [place] [facility] [address] [id number] [place] [address] Dec, 2013 [facility] [place] [facility] [address] [id number] [place] [address] Dec, 2013 [facility] [place] [facility] [address] [id number] [place] [address] Dec, 2013 [facility] [place] [facility] [address] [id number] [place] [address] Dec, 2013 [facility] [place] [facility] [address] [id number] [place] [address] Dec, 2013 [facility] [place] [facility] [address] [id number] [place] [address] Dec, [facility] [place] [facility] [address] [id number] [place] [address] Dec, [facility] [place] [facility] [address] [id number] [place] [address] Dec, [facility] [place] [facility] [address] [id number] [place] [address] Dec, [facility] [place] [facility] [address] [id number] [place] [address] Dec, [facility] [place] [facility] [address] [id number] [place] [address] Dec, [facility] [place] [facility] [address] [id number] [place] [address] Dec, [facility] [place] [facility] [address] [id number] [place] [address] Nov, [facility] [place] [facility] [address] [id number] [place] [address] Nov, [facility] [place] [facility] [address] [id number] [place] [address] Nov, [facility] [place] [facility] [address] [id number] [place] [address] Nov, [facility] [place] [facility] [address] [id number] [place] [address] Nov, [facility] [place] [facility] [address] [id number] [place] [address] Nov, [facility] [place] [facility] [address] [id number] [place] [address] Nov, [facility] [place] [facility] [address] [id number] [place] [address] Nov, [facility] [place] [facility] [address] [id number] [place] [address] Nov, [facility] [place] [facility] [address] [id number] [place] [address] Nov, [facility] [place] [facility] [address] [id number] [place] [address] Nov, [facility] [place] [facility] [address] [id number] [place] [address] Nov, [facility] [place] [facility] [address] [id number] [place] [address] Nov, [facility] [place] [facility] [address] [id number] [place] [address] Nov, [facility] [place] [facility] [address] [id number] [place] [address] Nov, [facility] [place] [facility] [address] [id number] [place] [address] Nov, [facility] [place] [facility] [address] [id number] [place] [address] Nov, [facility] [place] [facility] [address] [id number] [place] [address] Nov, [facility] [place] [facility] [address] [id number] [place] [address] Nov, [facility] [place] [facility] [address] [id number] [place] [address] Nov, [facility] [place] [facility] [address] [id number] [place] [address] October, [facility] [place] [facility] [address] [id number] [place] [address] October, [facility] [place] [facility] [address] [id number] [place] [address] October, [facility] [place] [facility] [address] [id number] [place] [address] October, [facility] [place] [facility] [address] [id number] [place] [address] Sep, [facility] [place] [facility] [address] [id number] [place] [address] Sep, [facility] [place] [facility] [address] [id number] [place] [address] Sep, [facility] [place] [facility] [address] [id number] [place] [address] Sep, [facility] [place] [facility] [address] [id number] [place] [address] Sep, [facility] [place] [facility] [address] [id number] [place] [address] Sep, [facility] [place] [facility] [address] [id number] [place] [address] Sep, [facility] [place] [facility] [address] [id number] [place] [address] Sep, [facility] [place] [facility] [address] [id number] [place] [address] Sep, [facility] [place] [facility] [address] [id number] [place] [address] Aug, [facility] [place] [facility] [address] [id number] [place] [address] Aug, [facility] [place] [facility] [address] [id number] [place] [address] Aug, [facility] [address] [id number] [place] [address] Aug, [facility] [place] [facility] [address] [id number] [place] [address] Aug, [facility] [place] [facility] [address] [id number] [place] [address] Aug, [facility] [place] [facility] [address] [id number] [place] [address] Aug, [facility] [place] [facility] [address] [id number] [place] [address] Aug, [facility] [place] [facility] [address] [id number] [place] [address] Jul, [facility] [place] [facility] [address] [id number] [place] [address] Jul, [facility] [place] [facility] [address] [id number] [place] [address] Jun, [facility] [place] [facility] [address] [id number] [place] [address] Jun, [facility] [place] [facility] [address] [id number] [place] [address] Jun, [facility] [place] [facility] [address] [id number] [place] [address] Jun, [facility] [place] [facility] [address] [id number] [place] [address] Jun, [facility] [place] [facility] [address] [id number] [place] [address] Jun, [facility] [place] [facility] [address] [id number] [place] [address] Jun, [facility] [place] [facility] [address] [id number] [place] [address] 15 Jun, 2013 [facility] [address] [id number] [place] [address] 15 Jun, 2013 [facility] [place] [facility] [address] [id number] [place] [address] 14 Jun, 2013 [facility] [place] [facility] [address] [id number] [place] [address] Jun, [facility] [place] [facility] [address] [id number] [place] [address] Jun, [facility] [place] [facility] [address] [id number] [place] [address] May, [facility] [place] [facility] [address] [id number] [place] [address] May, [facility] [place] [facility] [address] [id number] [place] [address] May, [facility] [place] [facility] [address] [id number] [place] [address] 31 May, 2013 [facility] [place] [facility] [address] [id number] [place] [address] 31 May, 2013 [facility] [place] [facility] [address] [id number] [place] [address] 31 May, 2013 [facility] [place] [facility] [address] [id number] [place] [address] 26 May, 2013 [facility] [place] [facility] [address] [id number] [address] 23 May, 2013 [facility] [place] [facility] [address] [id number] [place] [address] 23 May, 2013 [facility] [place] [facility] [address] [id number] [place] [address] 16 May, 2013 [facility] [place] [facility] [address] [id number] [place] [address] 16 May, 2013 [facility] [place] [facility] [address] [id number] [place] [address] May, [facility] [address] [id number] [place] [address] May, [facility] [place] [facility] [address] [id number] [place] [address] Apr, [facility] [place] [facility] [address] [id number] [place] [address] Apr, [facility] [place] [facility] [address] [id number] [place] [address] Mar, [facility] [place] [facility] [address] [id number] [place] [address] Mar, [facility] [place] [facility] [address] [id number] [place] [address] Feb, [facility] [place] [facility] [address] [id number] [place] [address] Feb, [facility] [place] [facility] [address] [id number] [place] [address] Feb, [facility] [place] [facility] [address] [id number] [place] [address] Feb, [facility] [place] [facility] [address] [id number] [place] [address] Jan, [facility] [place] [facility] [address] [id number] [place] [address] Jan, [facility] [place] [facility] [address] [id number] [place] [address] Jan, [facility] [place] [facility] [address] [id number] [place] [address] Jan, [facility] [place] [facility] [address] [id number] [place] [address] Jan, [facility] [place] [facility] [address] [id number] [place] [address] Jan, [facility] [place] [facility] [address] [id number] [place] [address] Dec, [facility] [address] [id number] [place] [address] Dec, [facility] [place] [facility] [address] [id number] [place] [address] Dec, [facility] [address] [id number] [place] [address] Dec, [facility] [address] [id number] [place] [address] Nov, [facility] [place] [facility] [address] [id number] [place] [address] October, [facility] [address] [id number] [place] [address] October, [facility] [address] [id number] [place] [address] October, [facility] [address] [id number] [place] [address] Sep, [facility] [address] [id number] [place] [address] Sep, [facility] [place] [facility] [address] [id number] [place] [address] Jun, [facility] [place] [facility] [address] [id number] [place] [address] Jun, [facility] [place] [facility] [address] [id number] [place] [address] Jun, [facility] [place] [facility] [address] [id number] [place] [address] Apr, [facility] [place] [facility] [address] [id number] [place] [address] Apr, [facility] [place] [facility] [address] [id number] [place] [address] Apr, [facility] [place] [facility] [address] [id number] [place] [address] Apr, [facility] [place] [facility] [address] [id number] [place] [address] Mar, [facility] [place] [facility] [address] [id number] [place] [address] Mar, [facility] [place] [facility] [address] [id number] [place] [address] Mar, [facility] [place] [facility] [address] [id number] [place] [address] Mar, [facility] [place] [facility] [address] [id number] [place] [address] Feb, [facility] [place] [facility] [address] [id number] [place] [address] Feb, [facility] [place] [facility] [address] [id number] [place] [address] Feb, [facility] [place] [facility] [address] [id number] [place] [address] Jan, [facility] [place] [facility] [address] [id number] [place] [address] Jan, [facility] [place] [facility] [address] [id number] [place] [address] Jan, [facility] [place] [facility] [address] [id number] [place] [address] Jan, [facility] [place] [facility] [address] [id number] [place] [address] Dec, [facility] [place] [facility] [address] [facility] [id number] [place] [address] Dec, [facility] [place] [facility] [address] [facility] [id number] [place] [address] Nov, [facility] [place] [facility] [address] [id number] [place] [address] Nov, [facility] [address] [id number] [place] [address] October, [facility] [address] [id number] [place] [address] October, [facility] [address] [id number] [place] [address] October, [facility] [address] [id number] [place] [address] Sep, [facility] [address] [id number] [place] [address] Sep, [facility] [address] [id number] [place] [address] Sep, [facility] [address] [id number] [place] [address] Aug, [facility] [address] [id number] [place] [address] Aug, [facility] [address] [id number] [place] [address] Aug, [facility] [address] [facility] [id number] [place] [address] 15 Aug, 2011 [facility] [address] [id number] [place] [address] Aug, [facility] [address] [id number] [place] [address] 23 Jul, 2011 [facility] [address] [id number] [place] [address] 16 Jul, 2011 [facility] [address] [id number] [place] [address] 13 Jul, 2011 [facility] [address] [id number] [place] [address] Jul, [facility] [place] [facility] [address] [id number] [place] [address] Jul, [facility] [place] [facility] [address] [id number] [place] [address] Jul, [facility] [place] [facility] [address] [id number] [place] [address] Jul, [facility] [place] [facility] [address] [id number] [place] [address] Jul, [facility] [place] [facility] [address] [id number] [place] [address] Jun, [facility] [place] [facility] [address] [id number] [place] [address] Jun, [facility] [place] [facility] [address] [id number] [place] [address] May, [facility] [place] [facility] [address] [id number] [place] [address] May, [facility] [place] [facility] [address] [id number] [place] [address] May, [facility] [place] [facility] [address] [facility] [id number] [place] [address] May, [facility] [place] [facility] [address] [facility] [id number] [address] Apr, [facility] [place] [facility] [address] [id number] [place] [address] Apr, [facility] [place] [facility] [address] [id number] [place] [address] Apr, [facility] [place] [facility] [address] [facility] [id number] [place] [address] Mar, [facility] [place] [facility] [address] [facility] [id number] [place] [address] Mar, [facility] [place] [facility] [address] [id number] [place] [address] 18 Mar, 2011 [facility] [address] [id number] [place] [address] 2011 [facility] [address] [id number] [place] [address] Dec, [facility] [address] [id number] [place] [address] October, [facility] [address] [id number] [place] [address] 28 May, 2010 [facility] [address] [id number] [place] [address] 13 May, 2010 [facility] [address] [id number] [place] [address] 13 May, 2010 [facility] [address] [facility] [id number] [place] [address] 06 May, 2010 [facility] [address] [id number] [place] [address] 26 Mar, 2010 [facility] [address] [facility] [id number] [place] [address] 25 Mar, 2010 [facility] [address] [facility] [id number] [place] [address] 31 May, 2009 [facility] [address] [id number] [place] [address] 30 May, 2009 [facility] [address] [id number] [place] [address] 08 May, 2009 [facility] [address] [id number] [place] [address] 08 May, 2009 [facility] [address] [facility] [id number] [place] [address] Apr, [facility] [address] [facility] [id number] [place] [address] Apr, [facility] [address] [facility] [id number] [place] [address] October, IMMUNIZATIONS No Known Immunizations SOCIAL HISTORY Never Assessed REASON FOR VISIT EMR-[facility] PLAN OF CARE VITAL SIGNS MEDICATIONS Unknown [...]
--- OUTSIDE RECORDS SUMMARY | 2019-01-13 10:23 | XMS REPORT ---
Author Author Migration, Doctor Organization [facility] Address Unknown Phone Unavailable Care Team Providers Care Bait Packer Name Role Phone Migration, Doctor Unavailable Unavailable PROBLEMS Type Condition ICD9-CM Code RJE09-DT Code Onset Dates Condition Status SNOMED Code Problem History of illicit drug use Z87.898 Active 352901539 Problem MRSA (methicillin resistant staph aureus) culture positive Z22.322 Active 811868651 Problem Snoring R06.83 Active 09741728 Problem Neuropathy G62.9 Active 271058395 Problem Essential hypertension I10 Active 79920919 Problem Fatigue R53.83 Active 54503503 Problem Panic disorder without agoraphobia F41.0 Active 75427701 Problem Upper respiratory tract infection, unspecified type J06.9 Active 98342197 Problem Varicose veins of both lower extremities I83.93 Active 92485904 Problem Other chronic pain G89.29 Active 98117687 Problem Mild persistent asthma without complication J45.30 Active 469233054 Problem On home oxygen therapy Z99.81 Active 215264576326 Problem Mild chronic obstructive pulmonary disease J44.9 Active 524562574 Problem Major depressive disorder, recurrent episode, moderate F33.1 Active 814903126 Problem 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 Active 11525904 Problem COPD exacerbation J44.1 Active 230421962 Problem Mood disorder F39 Active 88592049 Problem Dysthymic disorder F34.1 Active 87229697 Problem Psychotic disorder F29 Active 15038372 Problem Impaired circulation I99.9 Active 27962174 Problem Agoraphobia F40.00 Active 47790525 Problem COPD (chronic obstructive pulmonary disease) with chronic bronchitis J44.9 Active 238374359 Problem Exertional asthma J45.990 Active 44806675 Problem 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 428446362 Problem Arthritis M19.90 Active 2065277 ALLERGIES No Information ENCOUNTERS Encounter Location Date Diagnosis [facility] [address] [facility] [id number] [address] Nov, [place] [id number] [place] [address] Sep, [place] [address] [place] [id number] [place] [address] Sep, [place] [address] [place] [id number] [place] [address] Sep, Panic disorder without agoraphobia F41.0 [place] [address] [place] [id number] [place] [address] Aug, Panic disorder without agoraphobia F41.0 ; Major depressive disorder, recurrent episode, moderate F33.1 ; 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 ; Psychotic disorder F29 ; Tardive dyskinesia G24.01 and Morbid obesity E66.01 [place] [address] [place] [id number] [place] [address] Aug, Dysthymic disorder F34.1 and Psychotic disorder F29 [place] [address] [place] [id number] [place] [address] Aug, Encounter for Medicare annual wellness exam Z00.00 ; Morbid obesity E66.01 and 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 [place] [address] [place] [address] Aug, Dysthymic disorder F34.1 and Psychotic disorder F29 [place] [address] [place] [id number] [place] [address] Aug, Neuropathy G62.9 ; Onychomycosis B35.1 and Xerosis of skin L85.3 [place] [address] [place] [id number] [place] [address] Jul, [place] [address] [place] [id number] [place] [address] Jul, Mood disorder F39 ; Wheezing R06.2 ; Choking, initial encounter T17.308A and Coughing R05 [place] [address] [place] [id number] [place] [address] 07 Jul, 2018 Low back pain M54.5 [facility] [address] [place] [id number] [place] [address] Jun, Flu-like symptoms R68.89 ; BMI 45.0-49.9, adult Z68.42 ; COPD exacerbation J44.1 and Acute bronchitis J20.9 [place] [address] [address] Jun, [place] [address] [address] May, [place] [address] [address] May, Onychomycosis B35.1 and 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 [place] [address] [address] May, Low back pain M54.5 and Edema leg R60.[address] [address] May, BMI 45.0-49.9, adult Z68.42 ; Well woman exam with routine gynecological exam Z01.419 and Breast cancer screening Z12.[address] [address] Apr, Arthritis M19.90 [place] [address] [place] [id number] [place] [address] 16 Apr, 2018 Arthritis M19.90 and Otalgia of both ears H92.[address] [address] Feb, [place] [address] [address] Feb, Low back pain M54.5 ; Other chronic pain G89.29 ; Exertional asthma J45.990 and Encounter for immunization Z23 [facility] [address] [address] Feb, Skin fissures R23.4 ; Neuropathy G62.9 and Onychomycosis B35.1 [facility] [address] [address] 05 Feb, 2018 Dysthymic disorder F34.1 [place] [address] [address] 04 Feb, 2018 [place] [address] [address] Jan, [place] [address] [address] Jan, Abrasion of right elbow, initial encounter S50.311A ; Abrasion, right knee, initial encounter S80.211A and Sprain of other ligament of right ankle, initial encounter S93.491A [place] [address] [address] Jan, [facility] [address] [address] Jan, Injury of left ankle, initial encounter S99.912A ; Fall down stairs, initial encounter W10.8XXA and BMI 45.0-49.9, adult Z68.42 [place] [address] [place] [id number] [place] [address] Jan, COPD exacerbation J44.1 [place] [address] [address] Jan, Dysfunction of both eustachian 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 [place] [address] [address] Jan, Bronchitis J40 and Acute suppurative otitis media of left ear without spontaneous rupture of tympanic membrane, recurrence not specified H66.002 [place] [address] [place] [id number] [place] [address] Jan, [place] [address] [place] [id number] [place] [address] Jan, Bronchitis J40 and BMI 40.0-44.9, adult Z68.41 [place] [address] [address] Jan, [place] [address] [place] [id number] [place] [address] Dec, Gastric pain R10.9 [place] [address] [address] Dec, [place] [address] [place] [id number] [place] [address] Dec, History of illicit drug use Z87.898 ; Neuropathy G62.9 ; COPD (chronic obstructive pulmonary disease) with chronic bronchitis J44.9 and Acute pain of right knee M25.561 [place] [address] [place] [id number] [place] [address] Nov, [place] [address] [place] [id number] [place] [address] Nov, Onychomycosis B35.1 and Contusion of left foot, subsequent encounter S90.32XD [place] [address] [place] [id number] [place] [address] Nov, COPD exacerbation J44.1 [place] [address] [place] [id number] [place] [address] Sep, [place] [address] [place] [id number] [place] [address] Sep, Dysthymic disorder F34.1 ; Tobacco abuse Z72.0 ; Pain in right knee M25.561 ; Pain in left knee M25.562 ; Other chronic pain G89.29 and BMI 40.0- 44.9, adult Z68.41 [place] [address] [place] [id number] [place] [address] 22 Aug, 2017 Major depressive disorder, recurrent episode, moderate F33.1 and 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 [place] [address] [place] [id number] [place] [address] 14 Aug, 2017 Dysthymic disorder F34.1 ; Non-pressure chronic ulcer of left thigh, unspecified ulcer stage L97.129 ; Tobacco abuse Z72.0 ; Mild chronic obstructive pulmonary disease J44.9 and Forgetfulness R68.89 [place] [address] [address] 09 Aug, 2017 Onychomycosis B35.1 ; Fissure in skin of foot R23.4 and Foot callus L84 [facility] [address] [address] 26 Jul, 2017 Right medial knee pain M25.561 ; Upper respiratory tract infection, unspecified type J06.9 and BMI 40.0-44.9, adult Z68.41 [facility] [address] [address] 08 Jul, 2017 Nausea and vomiting, intractability of vomiting not specified, unspecified vomiting type R11.2 ; Left ear pain H92.02 and Gastric pain R10.[address] [address] Apr, Encounter for immunization Z23 [place] [address] [address] Apr, Onychomycosis B35.1 ; Xerosis of skin L85.3 ; Neuropathy G62.9 and 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 [place] [address] [place] [id number] [place] [address] Jan, Onychomycosis B35.1 and Neuropathy G62.[address] [place] [address] Dec, [facility] [address] [address] Dec, [facility] [address] [address] Nov, [facility] [address], [place] [address] Aug, [facility] [address] [address] Aug, [facility] [address], [place] [address] Jul, [facility] [address] [address] Jul, [facility] [address] [address] Jul, Decubitus ulcer of left thigh, stage 2 L89.892 [facility] [address], [place] [address] 17 Jul, 2016 Decubitus ulcer of left thigh, stage 2 L89.892 [facility] [address], [place] [address] 17 Jul, 2016 [facility] [address] [place] [id number] [address] 15 Jul, 2016 Decubitus ulcer of left thigh, stage 2 L89.892 [facility] [address] [place] [id number] [address] 14 Jul, 2016 [facility] [address] [address] 13 Jul, 2016 Cellulitis of other specified site L03.818 ; Illicit drug use F19.90 and Decubitus ulcer of left thigh, stage 2 L89.892 [facility] [address] [place] [id number] [place] [address] 08 Jul, 2016 [facility] [address] [place] [id number] [place] [address] Jul, Cellulitis of right breast N61.0 [facility] [address] [place] [id number] [place] [address] Jun, [facility] [address] [address] Jun, [facility] [address] [place] [id number] [place] [address] Jun, Wheezing R06.2 and Arthralgia, unspecified joint M25.50 [place] [address] [place] [id number] [place] [address] May, [place] [address] [address] May, [facility] [address] [place] [id number] [place] [address] May, [place] [address] [place] [id number] [place] [address] May, Shortness of breath R06.02 [place] [address] [place] [id number] [place] [address] May, Onychomycosis B35.1 and Fissure in skin of foot R23.4 [place] [address] [place] [id number] [place] [address] Apr, [facility] [address] [place] [id number] [place] [address] 18 Apr, 2016 Dizziness R42 [place] [address] [place] [id number] [place] [address] 14 Apr, 2016 Shortness of breath R06.02 ; Essential hypertension I10 ; Dizziness R42 and On home oxygen therapy Z99.81 [place] [address], [place] [address] Apr, [facility] [address], [place] [address] Apr, [facility] [address] [address] Apr, [facility] [address] [place] [id number] [place] [address] Apr, [facility] [address] [place] [id number] [place] [address], [place] [address] Apr, [facility] [address] [place] [id number] [place] [address], [place] [address] Apr, [facility] [address] [place] [id number] [place] [address] Apr, [facility] [address] [place] [id number] [place] [address] Mar, Mild chronic obstructive pulmonary disease J44.9 [facility] [address], [place] [address] Mar, [facility] [address] [place] [address] Mar, Epigastric pain R10.13 ; Low back pain M54.5 ; Other chronic pain G89.29 and Breast cancer screening Z12.39 [facility] [address], [place] [address] Mar, [facility] [address], [place] [address] Mar, [facility] [address], [place] [address] Feb, [facility] [address], [place] [address] Feb, [facility] [address] [place] [address] Feb, Fissure in skin of foot R23.4 and Onychomycosis B35.1 [place] [address] [place] [id number] [place] [address] Jan, Agoraphobia F40.00 [place] [address] [place] [id number] [place] [address] Dec, Agoraphobia F40.00 [place] [address] [address] Dec, Mild persistent asthma without complication J45.30 ; Dysthymic disorder F34.1 and Upper respiratory tract infection, unspecified type J06.9 [place] [address] [place] [id number] [place] [address] Nov, Agoraphobia F40.00 [place] [address] [place] [id number] [place] [address] October, Agoraphobia F40.00 [place] [address] [place] [id number] [place] [address] Sep, Panic disorder without agoraphobia F41.0 ; Agoraphobia F40.00 and Dysthymic disorder F34.1 [place] [address] [place] [id number] [place] [address] Sep, Panic attacks F41.0 [place] [address] [place] [id number] [place] [address] Sep, [place] [address] [place] [id number] [place] [address] Sep, Panic disorder without agoraphobia F41.0 ; Varicose veins of both lower extremities I83.93 and Fatigue R53.83 [place] [address] [place] [id number] [place] [address] 14 Sep, 2015 Fatigue R53.83 [place] [address] [place] [id number] [place] [address] Sep, [place] [address], [place] [address] Aug, [place] [address] [place] [address] Aug, [place] [address] [place] [id number] [place] [address] Aug, 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 [place] [address] [place] [id number] [place] [address] Aug, Panic disorder without agoraphobia F41.0 ; Agoraphobia F40.00 and Dysthymic disorder F34.1 [place] [address], [place] [address] Aug, Shortness of breath R06.02 ; Panic attacks F41.0 ; COPD (chronic obstructive pulmonary disease) J44.9 ; Tobacco abuse Z72.0 ; Family history of diabetes mellitus Z83.3 and Weight gain R63.5 [place] [address] [place] [address] Aug, [place] [address], [place] [address] Jul, [place] [address] [place] [address] Jun, Onychomycosis B35.1 ; Neuropathy G62.9 and Impaired circulation I99.9 [place] [address], [place] [address] 09 Mar, 2015 Fissure in skin of foot R23.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 [place] [address], [place] [address] 18 Feb, 2015 Family history of coronary arteriosclerosis V17.3 [place] [address], [place] [address] 15 Feb, 2015 Allergic rhinitis due to pollen 477.0 ; Unspecified breast screening V76.10 ; Anxiety 300.00 and Family history of coronary arteriosclerosis V17.3 [facility] [address], [place] [address] Jan, [facility] [address], [place] [address] Dec, [facility] [address], [place] [address] Dec, Onychomycosis 110.1 and Skin fissures 709.8 [facility] [address], [place] [address] Sep, [facility] [address], [place] [address] Sep, [facility] [address], [place] [address] Aug, [facility] [address], [place] [address] Aug, [facility] [address], [place] [address] Jul, [facility] [address], [place] [address] Jul, [facility] [address], [place] [address] Jun, [facility] [address], [place] [address] Jun, [facility] [address], [place] [address] Jun, [facility] [address], [place] [address] Jun, [facility] [address] [id number] [address] Jun, [facility] [address] [id number] [place] [address] May, [facility] [place] [facility] [address] [id number] [place] [address] May, [facility] [place] [facility] [address] [id number] [place] [address] May, [facility] [place] [facility] [address] [id number] [place] [address] May, [facility] [place] [facility] [address] [id number] [place] [address] May, [facility] [place] [facility] [address] [id number] [place] [address] May, [facility] [place] [facility] [address] [id number] [place] [address] May, [facility] [address] [id number] [place] [address] May, [facility] [place] [facility] [address] [id number] [place] [address] Apr, [facility] [place] [facility] [address] [id number] [place] [address] Apr, [facility] [place] [facility] [address] [id number] [place] [address] Apr, [facility] [place] [facility] [address] [id number] [place] [address] Apr, [facility] [place] [facility] [address] [id number] [place] [address] Apr, [facility] [place] [facility] [address] [id number] [place] [address] Apr, [facility] [place] [facility] [address] [id number] [place] [address] Apr, [facility] [place] [facility] [address] [id number] [place] [address] Apr, [facility] [place] [facility] [address] [id number] [place] [address] Apr, [facility] [place] [facility] [address] [id number] [place] [address] Apr, [facility] [place] [facility] [address] [id number] [place] [address] Mar, [facility] [place] [facility] [address] [id number] [place] [address] Mar, [facility] [place] [facility] [address] [id number] [place] [address] Mar, [facility] [place] [facility] [address] [id number] [place] [address] Mar, [facility] [place] [facility] [address] [id number] [place] [address] Mar, [facility] [place] [facility] [address] [id number] [place] [address] Mar, [facility] [place] [facility] [address] [id number] [place] [address] Mar, [facility] [place] [facility] [address] [id number] [place] [address] Mar, [facility] [place] [facility] [address] [id number] [address] Mar, [facility] [place] [facility] [address] [id number] [place] [address] Mar, [facility] [place] [facility] [address] [id number] [place] [address] Mar, [facility] [place] [facility] [address] [id number] [place] [address] Mar, [facility] [place] [facility] [address] [id number] [place] [address] 22 Mar, 2013 [facility] [place] [facility] [address] [id number] [place] [address] 22 Mar, 2013 [facility] [place] [facility] [address] [id number] [place] [address] 22 Mar, 2013 [facility] [place] [facility] [address] [id number] [place] [address] 20 Mar, 2013 [facility] [place] [facility] [address] [id number] [place] [address] 20 Mar, 2013 [facility] [place] [facility] [address] [id number] [place] [address] 16 Mar, 2013 [facility] [place] [facility] [address] [id number] [place] [address] 16 Mar, 2013 [facility] [place] [facility] [address] [id number] [place] [address] 15 Mar, 2013 [facility] [place] [facility] [address] [id number] [place] [address] 14 Mar, 2013 [facility] [place] [facility] [address] [id number] [place] [address] 14 Mar, 2013 [facility] [place] [facility] [address] [id number] [place] [address] 14 Mar, 2013 [facility] [place] [facility] [address] [id number] [place] [address] 14 Mar, 2013 [facility] [place] [facility] [address] [id number], [place] [address] 09 Mar, 2013 [facility] [place] [facility] [address] [id number] [place] [address] 09 Mar, 2013 [facility] [place] [facility] [address] [id number], [place] [address] 09 Mar, 2013 [facility] [place] [facility] [address] [id number], [place] [address] 09 Mar, 2013 [facility] [place] [facility] [address] [id number] [place] [address] 30 Sep, 2013 [facility] [place] [facility] [address] [id number] [place] [address] 30 Sep, 2013 [facility] [place] [facility] [address] [id number] [place] [address] 30 Feb, 2013 [facility] [place] [facility] [address] [id number] [place] [address] 30 Sep, 2013 [facility] [place] [facility] [address] [id number] [place] [address] 26 Sep, 2013 [facility] [place] [facility] [address] [id number] [place] [address] 26 Feb, 2013 [facility] [place] [facility] [address] [id number] [place] [address] 09 Feb, 2013 [facility] [place] [facility] [address] [id number] [place] [address] 09 Feb, 2013 [facility] [place] [facility] [address] [id number] [place] [address] 03 Feb, 2013 [facility] [place] [facility] [address] [id number] [place] [address] 03 Feb, 2013 [facility] [place] [facility] [address] [id number] [place] [address] Feb, 2013 [facility] [place] [facility] [address] [id number] [place] [address] 03 Feb, 2013 [facility] [place] [facility] [address] [id number] [place] [address] Jan, [facility] [place] [facility] [address] [id number] [place] [address] Jan, [facility] [place] [facility] [address] [id number] [place] [address] 14 Jan, 2014 [facility] [place] [facility] [address] [id number] [place] [address] Jan, [facility] [place] [facility] [address] [id number] [place] [address] Jan, [facility] [place] [facility] [address] [id number] [place] [address] Jan, [facility] [place] [facility] [address] [id number] [place] [place] [address] Jan, [facility] [place] [facility] [address] [id number] [place] [address] Jan, [facility] [place] [facility] [address] [id number] [place] [address] Jan, [facility] [place] [facility] [address] [id number] [place] [address] Jan, [facility] [place] [facility] [address] [id number] [place] [address] Jan, [facility] [place] [facility] [address] [id number] [place] [address] Jan, [facility] [place] [facility] [address] [id number] [place] [address] Jan, [facility] [place] [facility] [address] [id number] [place] [address] Dec, [facility] [place] [facility] [address] [id number] [place] [address] Dec, [facility] [place] [facility] [address] [id number] [place] [address] Dec, [facility] [place] [facility] [address] [id number] [place] [address] Dec, [facility] [place] [facility] [address] [id number] [place] [address] Dec, [facility] [place] [facility] [address] [id number] [place] [address] Dec, [facility] [place] [facility] [address] [id number] [place] [address] Dec, 2013 [facility] [place] [facility] [address] [id number] [place] [address] Dec, 2013 [facility] [place] [facility] [address] [id number] [place] [address] Dec, 2013 [facility] [place] [facility] [address] [id number] [place] [address] Dec, 2013 [facility] [place] [facility] [address] [id number] [place] [address] Dec, 2013 [facility] [place] [facility] [address] [id number] [place] [address] Dec, [facility] [place] [facility] [address] [id number] [place] [address] Dec, [facility] [place] [facility] [address] [id number] [place] [address] Dec, [facility] [place] [facility] [address] [id number] [place] [address] Dec, [facility] [place] [facility] [address] [id number] [place] [address] Dec, [facility] [place] [facility] [address] [id number] [place] [address] Dec, [facility] [place] [facility] [address] [id number] [place] [address] Dec, [facility] [place] [facility] [address] [id number] [place] [address] Nov, [facility] [place] [facility] [address] [id number] [place] [address] Nov, [facility] [place] [facility] [address] [id number] [place] [address] Nov, [facility] [place] [facility] [address] [id number] [place] [address] Nov, [facility] [place] [facility] [address] [id number] [place] [address] Nov, [facility] [place] [facility] [address] [id number] [place] [address] Nov, [facility] [place] [facility] [address] [id number] [place] [address] Nov, [facility] [place] [facility] [address] [id number] [place] [address] Nov, [facility] [place] [facility] [address] [id number] [place] [address] Nov, [facility] [place] [facility] [address] [id number] [place] [address] Nov, [facility] [place] [facility] [address] [id number] [place] [address] Nov, [facility] [place] [facility] [address] [id number] [place] [address] Nov, [facility] [place] [facility] [address] [id number] [place] [address] Nov, [facility] [place] [facility] [address] [id number] [place] [address] Nov, [facility] [place] [facility] [address] [id number] [place] [address] Nov, [facility] [place] [facility] [address] [id number] [place] [address] Nov, [facility] [place] [facility] [address] [id number] [place] [address] Nov, [facility] [place] [facility] [address] [id number] [place] [address] Nov, [facility] [place] [facility] [address] [id number] [place] [address] Nov, [facility] [place] [facility] [address] [id number] [place] [address] Nov, [facility] [place] [facility] [address] [id number] [place] [address] October, [facility] [place] [facility] [address] [id number] [place] [address] October, [facility] [place] [facility] [address] [id number] [place] [address] October, [facility] [place] [facility] [address] [id number] [place] [address] October, [facility] [place] [facility] [address] [id number] [place] [address] Sep, [facility] [place] [facility] [address] [id number] [place] [address] Sep, [facility] [place] [facility] [address] [id number] [place] [address] Sep, [facility] [place] [facility] [address] [id number] [place] [address] Sep, [facility] [place] [facility] [address] [id number] [place] [address] Sep, [facility] [place] [facility] [address] [id number] [place] [address] Sep, [facility] [place] [facility] [address] [id number] [place] [address] Sep, [facility] [place] [facility] [address] [id number] [place] [address] Sep, [facility] [place] [facility] [address] [id number] [place] [address] Sep, [facility] [place] [facility] [address] [id number] [place] [address] Aug, [facility] [place] [facility] [address] [id number] [place] [address] Aug, [facility] [place] [facility] [address] [id number] [place] [address] Aug, [facility] [address] [id number] [place] [address] Aug, [facility] [place] [facility] [address] [id number] [place] [address] Aug, [facility] [place] [facility] [address] [id number] [place] [address] Aug, [facility] [place] [facility] [address] [id number] [place] [address] Aug, [facility] [place] [facility] [address] [id number] [place] [address] Aug, [facility] [place] [facility] [address] [id number] [place] [address] Jul, [facility] [place] [facility] [address] [id number] [place] [address] Jul, [facility] [place] [facility] [address] [id number] [place] [address] Jun, [facility] [place] [facility] [address] [id number] [place] [address] Jun, [facility] [place] [facility] [address] [id number] [place] [address] Jun, [facility] [place] [facility] [address] [id number] [place] [address] Jun, [facility] [place] [facility] [address] [id number] [place] [address] Jun, [facility] [place] [facility] [address] [id number] [place] [address] Jun, [facility] [place] [facility] [address] [id number] [place] [address] Jun, [facility] [place] [facility] [address] [id number] [place] [address] 15 Jun, 2013 [facility] [address] [id number] [place] [address] 15 Jun, 2013 [facility] [place] [facility] [address] [id number] [place] [address] 14 Jun, 2013 [facility] [place] [facility] [address] [id number] [place] [address] Jun, [facility] [place] [facility] [address] [id number] [place] [address] Jun, [facility] [place] [facility] [address] [id number] [place] [address] May, [facility] [place] [facility] [address] [id number] [place] [address] May, [facility] [place] [facility] [address] [id number] [place] [address] May, [facility] [place] [facility] [address] [id number] [place] [address] 31 May, 2013 [facility] [place] [facility] [address] [id number] [place] [address] 31 May, 2013 [facility] [place] [facility] [address] [id number] [place] [address] 31 May, 2013 [facility] [place] [facility] [address] [id number] [place] [address] 26 May, 2013 [facility] [place] [facility] [address] [id number], [place] [address] 23 May, 2013 [facility] [place] [facility] [address] [id number] [place] [address] 23 May, 2013 [facility] [place] [facility] [address] [id number] [place] [address] 16 May, 2013 [facility] [place] [facility] [address] [id number] [place] [address] 16 May, 2013 [facility] [place] [facility] [address] [id number] [place] [address] May, [facility] [address] [id number] [place] [address] May, [facility] [place] [facility] [address] [id number] [place] [address] Apr, [facility] [place] [facility] [address] [id number] [place] [address] Apr, [facility] [place] [facility] [address] [id number] [place] [address] Mar, [facility] [place] [facility] [address] [id number] [place] [address] Mar, [facility] [place] [facility] [address] [id number] [place] [address] Feb, [facility] [place] [facility] [address] [id number] [place] [address] Feb, [facility] [place] [facility] [address] [id number] [place] [address] Feb, [facility] [place] [facility] [address] [id number] [place] [address] Feb, [facility] [place] [facility] [address] [id number] [place] [address] Jan, [facility] [place] [facility] [address] [id number] [place] [address] Jan, [facility] [place] [facility] [address] [id number] [place] [address] Jan, [facility] [place] [facility] [address] [id number] [place] [address] Jan, [facility] [place] [facility] [address] [id number] [place] [address] Jan, [facility] [place] [facility] [address] [id number] [place] [address] Jan, [facility] [place] [facility] [address] [id number] [place] [address] Dec, [facility] [address] [id number] [place] [address] Dec, [facility] [place] [facility] [address] [id number] [place] [address] Dec, [facility] [address] [id number] [place] [address] Dec, [facility] [address] [id number] [place] [address] Nov, [facility] [place] [facility] [address] [id number] [place] [address] October, [facility] [address] [id number] [place] [address] October, [facility] [address] [id number] [place] [address] October, [facility] [address] [id number] [place] [address] Sep, [facility] [address] [id number] [place] [address] Sep, [facility] [place] [facility] [address] [id number] [place] [address] Jun, [facility] [place] [facility] [address] [id number] [place] [address] Jun, [facility] [place] [facility] [address] [id number] [place] [address] Jun, [facility] [place] [facility] [address] [id number] [place] [address] Apr, [facility] [place] [facility] [address] [id number] [place] [address] Apr, [facility] [place] [facility] [address] [id number] [place] [address] Apr, [facility] [place] [facility] [address] [id number] [place] [address] Apr, [facility] [place] [facility] [address] [id number] [place] [address] Mar, [facility] [place] [facility] [address] [id number] [place] [address] Mar, [facility] [place] [facility] [address] [id number] [place] [address] Mar, [facility] [place] [facility] [address] [id number] [place] [address] Mar, [facility] [place] [facility] [address] [id number] [place] [address] Feb, [facility] [place] [facility] [address] [id number] [place] [address] Feb, [facility] [place] [facility] [address] [id number] [place] [address] Feb, [facility] [place] [facility] [address] [id number] [place] [address] Jan, [facility] [place] [facility] [address] [id number] [place] [address] Jan, [facility] [place] [facility] [address] [id number] [place] [address] Jan, [facility] [place] [facility] [address] [id number] [place] [address] Jan, [facility] [place] [facility] [address] [id number] [place] [address] Dec, [facility] [place] [facility] [address] [facility] [id number] [place] [address] Dec, [facility] [place] [facility] [address] [facility] [id number] [place] [address] Nov, [facility] [place] [facility] [address] [id number] [place] [address] Nov, [facility] [address] [id number] [place] [address] October, [facility] [address] [id number] [place] [address] October, [facility] [address] [id number] [place] [address] October, [facility] [address] [id number] [place] [address] Sep, [facility] [address] [id number] [place] [address] Sep, [facility] [address] [id number] [place] [address] Sep, [facility] [address] [id number] [place] [address] Aug, [facility] [address] [id number] [place] [address] Aug, [facility] [address] [id number] [place] [address] Aug, [facility] [address] [facility] [id number] [place] [address] 15 Aug, 2011 [facility] [address] [id number] [place] [address] Aug, [facility] [address] [id number] [place] [address] 23 Jul, 2011 [facility] [address] [id number] [place] [address] 16 Jul, [address] [facility] [address] [id number] [place] [address] 13 Jul, 2011 [facility] [address] [id number] [place] [address] Jul, [facility] [place] [facility] [address] [id number] [place] [address] Jul, [facility] [place] [facility] [address] [id number] [place] [address] Jul, [facility] [place] [facility] [address] [id number] [place] [address] Jul, [facility] [place] [facility] [address] [id number] [place] [address] Jul, [facility] [place] [facility] [address] [id number] [place] [address] Jun, [facility] [place] [facility] [address] [id number] [place] [address] Jun, [facility] [place] [facility] [address] [id number] [place] [address] May, [facility] [place] [facility] [address] [id number] [place] [address] May, [facility] [place] [facility] [address] [id number] [place] [address] May, [facility] [place] [facility] [address] [facility] [id number] [place] [address] May, [facility] [place] [facility] [address] [facility] [id number], [place] [address] Apr, [facility] [place] [facility] [address] [id number] [place] [address] Apr, [facility] [place] [facility] [address] [id number] [place] [address] Apr, [facility] [place] [facility] [address] [facility] [id number] [place] [address] Mar, [facility] [place] [facility] [address] [facility] [id number] [place] [address] Mar, [facility] [place] [facility] [address] [id number] [place] [address] 18 Mar, 2011 [facility] [address] [id number] [place] [address] 2011 [facility] [address] [id number] [place] [address] Dec, [facility] [address] [id number] [place] [address] October, [facility] [address] [id number] [place] [address] 28 May, 2010 [facility] [address] [id number] [place] [address] 13 May, 2010 [facility] [address] [id number] [place] [address] 13 May, 2010 [facility] [address] [facility] [id number] [place] [address] 06 May, [address] [facility] [address] [id number] [place] [address] 26 Mar, 2010 [facility] [address] [facility] [id number] [place] [address] 25 Mar, 2010 [facility] [address] [facility] [id number] [place] [address] 31 May, 2009 [facility] [address] [id number] [place] [address] 30 May, 2009 [facility] [address] [id number] [place] [address] 08 May, 2009 [facility] [address] [id number] [place] [address] 08 May, 2009 [facility] [address] [facility] [id number] [place] [address] Apr, [facility] [address] [facility] [id number] [place] [address] Apr, [facility] [address] [facility] [id number] [place] [address] October, IMMUNIZATIONS No Known Immunizations SOCIAL HISTORY Never Assessed REASON FOR VISIT EMR-[facility] PLAN OF CARE VITAL SIGNS MEDICATIONS Unknown [...]
--- OUTSIDE RECORDS SUMMARY | 2019-01-13 10:24 | XMS REPORT ---
Author Author Migration, Doctor Organization [facility] Address Unknown Phone Unavailable Care Team Providers Care Receiving Manager Name Role Phone Migration, Doctor Unavailable Unavailable PROBLEMS Type Condition ICD9-CM Code UTW54-GS Code Onset Dates Condition Status SNOMED Code Problem History of illicit drug use Z87.898 Active 856165894 Problem MRSA (methicillin resistant staph aureus) culture positive Z22.322 Active 895930378 Problem Snoring R06.83 Active 94831796 Problem Neuropathy G62.9 Active 513491035 Problem Essential hypertension I10 Active 95461077 Problem Fatigue R53.83 Active 21934373 Problem Panic disorder without agoraphobia F41.0 Active 00739900 Problem Upper respiratory tract infection, unspecified type J06.9 Active 71335596 Problem Varicose veins of both lower extremities I83.93 Active 56536984 Problem Other chronic pain G89.29 Active 13225242 Problem Mild persistent asthma without complication J45.30 Active 562085252 Problem On home oxygen therapy Z99.81 Active 697138455695 Problem Mild chronic obstructive pulmonary disease J44.9 Active 269002504 Problem Major depressive disorder, recurrent episode, moderate F33.1 Active 390472131 Problem 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 Active 95757296 Problem COPD exacerbation J44.1 Active 777001768 Problem Mood disorder F39 Active 20034914 Problem Dysthymic disorder F34.1 Active 06488604 Problem Psychotic disorder F29 Active 57220093 Problem Impaired circulation I99.9 Active 95476552 Problem Agoraphobia F40.00 Active 24881574 Problem COPD (chronic obstructive pulmonary disease) with chronic bronchitis J44.9 Active 346217842 Problem Exertional asthma J45.990 Active 45958688 Problem 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 381902503 Problem Arthritis M19.90 Active 4985001 ALLERGIES No Information ENCOUNTERS Encounter Location Date Diagnosis [facility] [address] [facility] [id number] [address] Nov, [place] [address] [place] [address] Sep, [place] [address] [place] [id number] [place] [address] Sep, [place] [address] [place] [id number] [place] [address] Sep, Panic disorder without agoraphobia F41.0 [place] [address] [place] [id number] [place] [address] Aug, Panic disorder without agoraphobia F41.0 ; Major depressive disorder, recurrent episode, moderate F33.1 ; 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 ; Psychotic disorder F29 ; Tardive dyskinesia G24.01 and Morbid obesity E66.01 [place] [address] [place] [id number] [place] [address] Aug, Dysthymic disorder F34.1 and Psychotic disorder F29 [place] [address] [place] [id number] [place] [address] Aug, Encounter for Medicare annual wellness exam Z00.00 ; Morbid obesity E66.01 and 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 [place] [address] [place] [address] Aug, Dysthymic disorder F34.1 and Psychotic disorder F29 [place] [address] [place] [id number] [place] [address] Aug, Neuropathy G62.9 ; Onychomycosis B35.1 and Xerosis of skin L85.3 [place] [address] [place] [id number] [place] [address] Jul, [place] [address] [place] [id number] [place] [address] Jul, Mood disorder F39 ; Wheezing R06.2 ; Choking, initial encounter T17.308A and Coughing R05 [place] [address] [place] [id number] [place] [address] 07 Jul, 2018 Low back pain M54.5 [facility] [address] [place] [id number] [place] [address] Jun, Flu-like symptoms R68.89 ; BMI 45.0-49.9, adult Z68.42 ; COPD exacerbation J44.1 and Acute bronchitis J20.9 [place] [address] [address] Jun, [place] [address] [address] May, [place] [address] [address] May, Onychomycosis B35.1 and 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 [place] [address] [address] May, Low back pain M54.5 and Edema leg R60.[address] [address] May, BMI 45.0-49.9, adult Z68.42 ; Well woman exam with routine gynecological exam Z01.419 and Breast cancer screening Z12.[address] [address] Apr, Arthritis M19.90 [place] [address] [place] [id number] [place] [address] 16 Apr, 2018 Arthritis M19.90 and Otalgia of both ears H92.[address] [address] Feb, [place] [address] [address] Feb, Low back pain M54.5 ; Other chronic pain G89.29 ; Exertional asthma J45.990 and Encounter for immunization Z23 [facility] [address] [address] Feb, Skin fissures R23.4 ; Neuropathy G62.9 and Onychomycosis B35.1 [facility] [address] [address] 05 Feb, 2018 Dysthymic disorder F34.1 [place] [address] [address] 04 Feb, 2018 [place] [address] [address] Jan, [place] [address] [address] Jan, Abrasion of right elbow, initial encounter S50.311A ; Abrasion, right knee, initial encounter S80.211A and Sprain of other ligament of right ankle, initial encounter S93.491A [place] [address] [address] Jan, [facility] [address] [address] Jan, Injury of left ankle, initial encounter S99.912A ; Fall down stairs, initial encounter W10.8XXA and BMI 45.0-49.9, adult Z68.42 [place] [address] [place] [id number] [place] [address] Jan, COPD exacerbation J44.1 [place] [address] [address] Jan, Dysfunction of both eustachian 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 [place] [address] [address] Jan, Bronchitis J40 and Acute suppurative otitis media of left ear without spontaneous rupture of tympanic membrane, recurrence not specified H66.002 [place] [address] [place] [id number] [place] [address] Jan, [place] [address] [place] [id number] [place] [address] Jan, Bronchitis J40 and BMI 40.0-44.9, adult Z68.41 [place] [address] [address] Jan, [place] [address] [place] [id number] [place] [address] Dec, Gastric pain R10.9 [place] [address] [address] Dec, [place] [address] [place] [id number] [place] [address] Dec, History of illicit drug use Z87.898 ; Neuropathy G62.9 ; COPD (chronic obstructive pulmonary disease) with chronic bronchitis J44.9 and Acute pain of right knee M25.561 [place] [address] [place] [id number] [place] [address] Nov, [place] [address] [place] [id number] [place] [address] Nov, Onychomycosis B35.1 and Contusion of left foot, subsequent encounter S90.32XD [place] [address] [place] [id number] [place] [address] Nov, COPD exacerbation J44.1 [place] [address] [place] [id number] [place] [address] Sep, [place] [address] [place] [id number] [place] [address] Sep, Dysthymic disorder F34.1 ; Tobacco abuse Z72.0 ; Pain in right knee M25.561 ; Pain in left knee M25.562 ; Other chronic pain G89.29 and BMI 40.0- 44.9, adult Z68.41 [place] [address] [place] [id number] [place] [address] 22 Aug, 2017 Major depressive disorder, recurrent episode, moderate F33.1 and 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 [place] [address] [place] [id number] [place] [address] 14 Aug, 2017 Dysthymic disorder F34.1 ; Non-pressure chronic ulcer of left thigh, unspecified ulcer stage L97.129 ; Tobacco abuse Z72.0 ; Mild chronic obstructive pulmonary disease J44.9 and Forgetfulness R68.89 [place] [address] [address] 09 Aug, 2017 Onychomycosis B35.1 ; Fissure in skin of foot R23.4 and Foot callus L84 [facility] [address] [address] 26 Jul, 2017 Right medial knee pain M25.561 ; Upper respiratory tract infection, unspecified type J06.9 and BMI 40.0-44.9, adult Z68.41 [facility] [address] [address] 08 Jul, 2017 Nausea and vomiting, intractability of vomiting not specified, unspecified vomiting type R11.2 ; Left ear pain H92.02 and Gastric pain R10.[address] [address] Apr, Encounter for immunization Z23 [place] [address] [address] Apr, Onychomycosis B35.1 ; Xerosis of skin L85.3 ; Neuropathy G62.9 and 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 [place] [address] [place] [id number] [place] [address] Jan, Onychomycosis B35.1 and Neuropathy G62.[address] [place] [address] Dec, [facility] [address] [address] Dec, [facility] [address] [address] Nov, [facility] [address] [address] Aug, [facility] [address] [address] Aug, [facility] [address] [address] Jul, [facility] [address] [address] Jul, [facility] [address] [address] Jul, Decubitus ulcer of left thigh, stage 2 L89.892 [facility] [address] [address] 17 Jul, 2016 Decubitus ulcer of left thigh, stage 2 L89.892 [facility] [address] [address] 17 Jul, 2016 [facility] [address] [place] [id number] [address] 15 Jul, 2016 Decubitus ulcer of left thigh, stage 2 L89.892 [facility] [address] [place] [id number] [address] 14 Jul, 2016 [facility] [address] [address] 13 Jul, 2016 Cellulitis of other specified site L03.818 ; Illicit drug use F19.90 and Decubitus ulcer of left thigh, stage 2 L89.892 [facility] [address] [place] [id number] [place] [address] 08 Jul, 2016 [facility] [address] [place] [id number] [place] [address] Jul, Cellulitis of right breast N61.0 [facility] [address] [place] [id number] [place] [address] Jun, [facility] [address] [address] Jun, [facility] [address] [place] [id number] [place] [address] Jun, Wheezing R06.2 and Arthralgia, unspecified joint M25.50 [place] [address] [place] [id number] [place] [address] May, [place] [address] [address] May, [facility] [address] [place] [id number] [place] [address] May, [place] [address] [place] [id number] [place] [address] May, Shortness of breath R06.02 [place] [address] [place] [address] [place] [address] May, Onychomycosis B35.1 and Fissure in skin of foot R23.4 [place] [address] [place] [id number] [place] [address] Apr, [facility] [address] [place] [id number] [place] [address] 18 Apr, 2016 Dizziness R42 [place] [address] [place] [id number] [place] [address] 14 Apr, 2016 Shortness of breath R06.02 ; Essential hypertension I10 ; Dizziness R42 and On home oxygen therapy Z99.81 [place] [address] [address] Apr, [facility] [address] [address] Apr, [facility] [address] [place] [address] Apr, [facility] [address] [place] [id number] [place] [address] Apr, [facility] [address] [place] [id number] [place] [address], [place] [address] Apr, [facility] [address] [place] [id number] [place] [address], [place] [address] Apr, [facility] [address] [place] [id number] [place] [address] Apr, [facility] [address] [place] [id number] [place] [address] Mar, Mild chronic obstructive pulmonary disease J44.9 [facility] [address] [address] Mar, [facility] [address] [place] [address] Mar, Epigastric pain R10.13 ; Low back pain M54.5 ; Other chronic pain G89.29 and Breast cancer screening Z12.39 [facility] [address] [address] Mar, [facility] [address] [address] Mar, [facility] [address] [address] Feb, [facility] [address] [address] Feb, [facility] [address] [place] [address] Feb, Fissure in skin of foot R23.4 and Onychomycosis B35.1 [place] [address] [place] [address] [place] [address] Jan, Agoraphobia F40.00 [place] [address] [place] [address] [place] [address] Dec, Agoraphobia F40.00 [place] [address] [address] Dec, Mild persistent asthma without complication J45.30 ; Dysthymic disorder F34.1 and Upper respiratory tract infection, unspecified type J06.9 [place] [address] [place] [address] [place] [address] Nov, Agoraphobia F40.00 [place] [address] [place] [id number] [place] [address] October, Agoraphobia F40.00 [place] [address] [place] [address] [place] [address] Sep, Panic disorder without agoraphobia F41.0 ; Agoraphobia F40.00 and Dysthymic disorder F34.1 [place] [address] [place] [address] [place] [address] Sep, Panic attacks F41.0 [place] [address] [place] [address] [place] [address] Sep, [place] [address] [place] [address] [place] [address] Sep, Panic disorder without agoraphobia F41.0 ; Varicose veins of both lower extremities I83.93 and Fatigue R53.83 [place] [address] [place] [address] [place] [address] 14 Sep, 2015 Fatigue R53.83 [place] [address] [place] [id number] [place] [address] Sep, [place] [address] [place] [address] Aug, [place] [address] [place] [id number] [place] [address] Aug, [place] [address] [place] [address] [place] [address] Aug, Panic disorder without agoraphobia F41.0 ; Agoraphobia F40.00 and Dysthymic disorder F34.1 [place] [address] [place] [address] [place] [address] Aug, 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 [place] [address] [place] [address] [place] [address] Aug, Shortness of breath R06.02 ; Panic attacks F41.0 ; COPD (chronic obstructive pulmonary disease) J44.9 ; Tobacco abuse Z72.0 ; Family history of diabetes mellitus Z83.3 and Weight gain R63.5 [place] [address] [place] [address] [place] [address] Aug, [place] [address] [place] [id number] [place] [address] Jul, [place] [address] [place] [address] Jun, Onychomycosis B35.1 ; Neuropathy G62.9 and Impaired circulation I99.9 [place] [address] [address] 09 Mar, 2015 Fissure in skin of foot R23.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 [place] [address] [address] 18 Feb, 2015 Family history of coronary arteriosclerosis V17.3 [place] [address] [address] 15 Feb, 2015 Allergic rhinitis due to pollen 477.0 ; Unspecified breast screening V76.10 ; Anxiety 300.00 and Family history of coronary arteriosclerosis V17.3 [facility] [address] [address] Jan, [facility] [address] [address] Dec, [facility] [address] [address] Dec, Onychomycosis 110.1 and Skin fissures 709.8 [facility] [address] [address] Sep, [facility] [address] [address] Sep, [facility] [address] [address] Aug, [facility] [address] [address] Aug, [facility] [address] [address] Jul, [facility] [address] [address] Jul, [facility] [address] [address] Jun, [facility] [address] [address] Jun, [facility] [address] [address] Jun, [facility] [address] [address] Jun, [facility] [address] [place] [id number] [place] [address] Jun, [facility] [address] [id number] [place] [address] May, [facility] [place] [facility] [address] [id number] [place] [address] May, [facility] [place] [facility] [address] [id number] [place] [address] May, [facility] [place] [facility] [address] [id number] [place] [address] May, [facility] [place] [facility] [address] [id number] [place] [address] May, [facility] [place] [facility] [address] [id number] [place] [address] May, [facility] [place] [facility] [address] [id number] [place] [address] May, [facility] [address] [id number] [place] [address] May, [facility] [place] [facility] [address] [id number] [place] [address] Apr, [facility] [place] [facility] [address] [id number] [place] [address] Apr, [facility] [place] [facility] [address] [id number] [place] [address] Apr, [facility] [place] [facility] [address] [id number] [place] [address] Apr, [facility] [place] [facility] [address] [id number] [place] [address] Apr, [facility] [place] [facility] [address] [id number] [place] [address] Apr, [facility] [place] [facility] [address] [id number] [place] [address] Apr, [facility] [place] [facility] [address] [id number] [place] [address] Apr, [facility] [place] [facility] [address] [id number] [place] [address] Apr, [facility] [place] [facility] [address] [id number] [place] [address] Apr, [facility] [place] [facility] [address] [id number] [place] [address] Mar, [facility] [place] [facility] [address] [id number] [place] [address] Mar, [facility] [place] [facility] [address] [id number] [place] [address] Mar, [facility] [place] [facility] [address] [id number] [place] [address] Mar, [facility] [place] [facility] [address] [id number] [place] [address] Mar, [facility] [place] [facility] [address] [id number] [place] [address] Mar, [facility] [place] [facility] [address] [id number] [place] [address] Mar, [facility] [place] [facility] [address] [id number] [place] [address] Mar, [facility] [place] [facility] [address] [id number] [address] Mar, [facility] [place] [facility] [address] [id number] [place] [address] Mar, [facility] [place] [facility] [address] [id number] [place] [address] Mar, [facility] [place] [facility] [address] [id number] [place] [address] Mar, [facility] [place] [facility] [address] [id number] [place] [address] 22 Mar, 2013 [facility] [place] [facility] [address] [id number] [place] [address] 22 Mar, 2013 [facility] [place] [facility] [address] [id number] [place] [address] 22 Mar, 2013 [facility] [place] [facility] [address] [id number] [place] [address] 20 Mar, 2013 [facility] [place] [facility] [address] [id number] [place] [address] 20 Mar, 2013 [facility] [place] [facility] [address] [id number] [place] [address] 16 Mar, 2013 [facility] [place] [facility] [address] [id number] [place] [address] 16 Mar, 2013 [facility] [place] [facility] [address] [id number] [place] [address] 15 Mar, 2013 [facility] [place] [facility] [address] [id number] [place] [address] 14 Mar, 2013 [facility] [place] [facility] [address] [id number] [place] [address] 14 Mar, 2013 [facility] [place] [facility] [address] [id number] [place] [address] 14 Mar, 2013 [facility] [place] [facility] [address] [id number] [place] [address] 14 Mar, 2013 [facility] [place] [facility] [address] [id number] [address] 09 Mar, 2013 [facility] [place] [facility] [address] [id number] [place] [address] 09 Mar, 2013 [facility] [place] [facility] [address] [id number] [place] [address] 09 Mar, 2013 [facility] [place] [facility] [address] [id number] [address] 09 Mar, 2013 [facility] [place] [facility] [address] [id number] [place] [address] 30 Sep, 2013 [facility] [place] [facility] [address] [id number] [place] [address] 30 Sep, 2013 [facility] [place] [facility] [address] [id number] [place] [address] 30 Feb, 2013 [facility] [place] [facility] [address] [id number] [place] [address] 30 Sep, 2013 [facility] [place] [facility] [address] [id number] [place] [address] 26 Sep, 2013 [facility] [place] [facility] [address] [id number] [place] [address] 26 Feb, 2013 [facility] [facility] [address] [id number] [place] [address] 09 Feb, 2013 [facility] [place] [facility] [address] [id number] [place] [address] 09 Feb, 2013 [facility] [place] [facility] [address] [id number] [place] [address] 03 Feb, 2013 [facility] [place] [facility] [address] [id number] [place] [address] 03 Feb, 2013 [facility] [place] [facility] [address] [id number] [place] [address] Feb, 2013 [facility] [place] [facility] [address] [id number] [place] [address] 03 Feb, 2013 [facility] [place] [facility] [address] [id number] [place] [address] Jan, [facility] [place] [facility] [address] [id number] [place] [address] Jan, [facility] [place] [facility] [address] [id number] [place] [address] 14 Jan, 2014 [facility] [place] [facility] [address] [id number] [place] [address] Jan, [facility] [place] [facility] [address] [id number] [place] [address] Jan, [facility] [place] [facility] [address] [id number] [place] [address] Jan, [facility] [place] [facility] [address] [id number] [place] [address] Jan, [facility] [place] [facility] [address] [id number] [place] [address] Jan, [facility] [place] [facility] [address] [id number] [place] [address] Jan, [facility] [place] [facility] [address] [id number] [place] [address] Jan, [facility] [place] [facility] [address] [id number] [place] [address] Jan, [facility] [place] [facility] [address] [id number] [place] [address] Jan, [facility] [place] [facility] [address] [id number] [place] [address] Jan, [facility] [place] [facility] [address] [id number] [place] [address] Dec, [facility] [place] [facility] [address] [id number] [place] [address] Dec, [facility] [place] [facility] [address] [id number] [place] [address] Dec, [facility] [place] [facility] [address] [id number] [place] [address] Dec, [facility] [place] [facility] [address] [id number] [place] [address] Dec, [facility] [place] [facility] [address] [id number] [place] [address] Dec, [facility] [place] [facility] [address] [id number] [place] [address] Dec, 2013 [facility] [place] [facility] [address] [id number] [place] [address] Dec, 2013 [facility] [facility] [address] [id number] [place] [address] Dec, 2013 [facility] [place] [address] [id number] [place] [address] Dec, 2013 [facility] [place] [facility] [address] [id number] [place] [address] Dec, 2013 [facility] [address] [id number] [place] [address] Dec, [facility] [address] [id number] [place] [address] Dec, [facility] [place] [address] [id number] [place] [address] Dec, [facility] [place] [address] [id number] [place] [address] Dec, [facility] [address] [id number] [place] [address] Dec, [facility] [address] [id number] [place] [address] Dec, [facility] [place] [facility] [address] [id number] [place] [address] Dec, [facility] [place] [facility] [address] [id number] [place] [address] Nov, [facility] [place] [facility] [address] [id number] [place] [address] Nov, [facility] [address] [id number] [place] [address] Nov, [facility] [place] [facility] [address] [id number] [place] [address] Nov, [facility] [address] [id number] [place] [address] Nov, [facility] [address] [id number] [place] [address] Nov, [facility] [address] [id number] [place] [address] Nov, [facility] [address] [id number] [place] [address] Nov, [facility] [address] [id number] [place] [address] Nov, [facility] [address] [id number] [place] [address] Nov, [facility] [address] [id number] [place] [address] Nov, [facility] [address] [id number] [place] [address] Nov, [facility] [address] [id number] [place] [address] Nov, [facility] [address] [id number] [place] [address] Nov, [facility] [address] [id number] [place] [address] Nov, [facility] [address] [id number] [place] [address] Nov, [facility] [address] [id number] [place] [address] Nov, [facility] [address] [id number] [place] [address] Nov, [facility] [address] [id number] [place] [address] Nov, [facility] [address] [id number] [place] [address] Nov, [facility] [address] [id number] [place] [address] October, [facility] [address] [id number] [place] [address] October, [facility] [address] [id number] [place] [address] October, [facility] [address] [id number] [place] [address] October, [facility] [address] [id number] [place] [address] Sep, [facility] [address] [id number] [place] [address] Sep, [facility] [address] [id number] [place] [address] Sep, [facility] [address] [id number] [place] [address] Sep, [facility] [address] [id number] [place] [address] Sep, [facility] [address] [id number] [place] [address] Sep, [facility] [address] [id number] [place] [address] Sep, [facility] [address] [id number] [place] [address] Sep, [facility] [address] [id number] [place] [address] Sep, [facility] [address] [id number] [place] [address] Aug, [facility] [address] [id number] [place] [address] Aug, [facility] [address] [id number] [place] [address] Aug, [facility] [address] [id number] [place] [address] Aug, [facility] [address] [id number] [place] [address] Aug, [facility] [address] [id number] [place] [address] Aug, [facility] [address] [id number] [place] [address] Aug, [facility] [address] [id number] [place] [address] Aug, [facility] [address] [id number] [place] [address] Jul, [facility] [address] [id number] [place] [address] Jul, [facility] [address] [id number] [place] [address] Jun, [facility] [address] [id number] [place] [address] Jun, [facility] [address] [id number] [place] [address] Jun, [facility] [address] [id number] [place] [address] Jun, [facility] [address] [id number] [place] [address] Jun, [facility] [address] [id number] [place] [address] Jun, [facility] [address] [id number] [place] [address] Jun, [facility] [address] [id number] [place] [address] 15 Jun, 2013 [facility] [address] [id number] [place] [address] 15 Jun, 2013 [facility] [address] [id number] [place] [address] 14 Jun, 2013 [facility] [address] [id number] [place] [address] Jun, [facility] [address] [id number] [place] [address] Jun, [facility] [address] [id number] [place] [address] May, [facility] [address] [id number] [place] [address] May, [facility] [address] [id number] [place] [address] May, [facility] [address] [id number] [place] [address] 31 May, 2013 [facility] [address] [id number] [place] [address] 31 May, 2013 [facility] [address] [id number] [place] [address] 31 May, 2013 [facility] [address] [id number] [place] [address] 26 May, 2013 [facility] [address] [id number] [address] 23 May, 2013 [facility] [address] [id number] [place] [address] 23 May, 2013 [facility] [address] [id number] [place] [address] 16 May, 2013 [facility] [address] [id number] [place] [address] 16 May, 2013 [facility] [address] [id number] [place] [address] May, [facility] [address] [id number] [place] [address] May, [facility] [address] [id number] [place] [address] Apr, [facility] [address] [id number] [place] [address] Apr, [facility] [address] [id number] [place] [address] Mar, [facility] [address] [id number] [place] [address] Mar, [facility] [address] [id number] [place] [address] Feb, [facility] [address] [id number] [place] [address] Feb, [facility] [address] [id number] [place] [address] Feb, [facility] [address] [id number] [place] [address] Feb, [facility] [address] [id number] [place] [address] Jan, [facility] [address] [id number] [place] [address] Jan, [facility] [address] [id number] [place] [address] Jan, [facility] [address] [id number] [place] [address] Jan, [facility] [address] [id number] [place] [address] Jan, [facility] [address] [id number] [place] [address] Jan, [facility] [address] [id number] [place] [address] Dec, [facility] [address] [id number] [place] [address] Dec, [facility] [address] [id number] [place] [address] Dec, [facility] [address] [id number] [place] [address] Dec, [facility] [address] [id number] [place] [address] Nov, [facility] [address] [id number] [place] [address] October, [facility] [address] [id number] [place] [address] October, [facility] [address] [id number] [place] [address] October, [facility] [address] [id number] [place] [address] Sep, [facility] [address] [id number] [place] [address] Sep, [facility] [address] [id number] [place] [address] Jun, [facility] [address] [id number] [place] [address] Jun, [facility] [address] [id number] [place] [address] Jun, [facility] [facility] [address] [id number] [place] [address] Apr, [facility] [address] [id number] [place] [address] Apr, [facility] [address] [id number] [place] [address] Apr, [facility] [facility] [address] [id number] [place] [address] Apr, [facility] [facility] [address] [id number] [place] [address] Mar, [facility] [place] [facility] [address] [id number] [place] [address] Mar, [facility] [place] [facility] [address] [id number] [place] [address] Mar, [facility] [place] [facility] [address] [id number] [place] [address] Mar, [facility] [place] [facility] [address] [id number] [place] [address] Feb, [facility] [place] [facility] [address] [id number] [place] [address] Feb, [facility] [place] [facility] [address] [id number] [place] [address] Feb, [facility] [place] [facility] [address] [id number] [place] [address] Jan, [facility] [place] [facility] [address] [id number] [place] [address] Jan, [facility] [place] [facility] [address] [id number] [place] [address] Jan, [facility] [place] [facility] [address] [id number] [place] [address] Jan, [facility] [place] [facility] [address] [id number] [place] [address] Dec, [facility] [place] [facility] [address] [facility] [id number] [place] [address] Dec, [facility] [place] [facility] [address] [facility] [id number] [place] [address] Nov, [facility] [place] [facility] [address] [id number] [place] [address] Nov, [facility] [address] [id number] [place] [address] October, [facility] [address] [id number] [place] [address] October, [facility] [address] [id number] [place] [address] October, [facility] [address] [id number] [place] [address] Sep, [facility] [address] [id number] [place] [address] Sep, [facility] [address] [id number] [place] [address] Sep, [facility] [address] [id number] [place] [address] Aug, [facility] [address] [id number] [place] [address] Aug, [facility] [address] [id number] [place] [address] Aug, [facility] [address] [facility] [id number] [place] [address] 15 Aug, 2011 [facility] [address] [id number] [place] [address] Aug, [facility] [address] [id number] [place] [address] 23 Jul, 2011 [facility] [address] [id number] [place] [address] 16 Jul, 2011 [facility] [address] [id number] [place] [address] 13 Jul, 2011 [facility] [address] [id number] [place] [address] Jul, [facility] [place] [facility] [address] [id number] [place] [address] Jul, [facility] [place] [facility] [address] [id number] [place] [address] Jul, [facility] [place] [facility] [address] [id number] [place] [address] Jul, [facility] [place] [facility] [address] [id number] [place] [address] Jul, [facility] [place] [facility] [address] [id number] [place] [address] Jun, [facility] [place] [facility] [address] [id number] [place] [address] Jun, [facility] [place] [facility] [address] [id number] [place] [address] May, [facility] [place] [facility] [address] [id number] [place] [address] May, [facility] [place] [facility] [address] [id number] [place] [address] May, [facility] [place] [facility] [address] [facility] [id number] [place] [address] May, [facility] [place] [facility] [address] [facility] [id number] [address] Apr, [facility] [place] [facility] [address] [id number] [place] [address] Apr, [facility] [place] [facility] [address] [id number] [place] [address] Apr, [facility] [place] [facility] [address] [facility] [id number] [place] [address] Mar, [facility] [place] [facility] [address] [facility] [id number] [place] [address] Mar, [facility] [place] [facility] [address] [id number] [place] [address] 18 Mar, 2011 [facility] [address] [id number] [place] [address] 2011 [facility] [address] [id number] [place] [address] Dec, [facility] [address] [id number] [place] [address] October, [facility] [address] [id number] [place] [address] 28 May, 2010 [facility] [address] [id number] [place] [address] 13 May, 2010 [facility] [address] [id number] [place] [address] 13 May, 2010 [facility] [address] [facility] [id number] [place] [address] 06 May, 2010 [facility] [address] [id number] [place] [address] 26 Mar, 2010 [facility] [address] [facility] [id number] [place] [address] 25 Mar, 2010 [facility] [address] [facility] [id number] [place] [address] 31 May, 2009 [facility] [address] [id number] [place] [address] 30 May, 2009 [facility] [address] [id number] [place] [address] 08 May, 2009 [facility] [address] [id number] [place] [address] 08 May, 2009 [facility] [address] [facility] [id number] [place] [address] Apr, [facility] [address] [facility] [id number] [place] [address] Apr, [facility] [address] [facility] [id number] [place] [address] October, IMMUNIZATIONS No Known Immunizations SOCIAL HISTORY Never Assessed [place] [place] VITAL SIGNS MEDICATIONS Unknown [...]
--- OUTSIDE RECORDS SUMMARY | 2019-01-13 10:24 | XMS REPORT ---
Author Author Migration, Doctor Organization [facility] Address Unknown Phone Unavailable Care Team Providers Care Support Service Tech Name Role Phone Migration, Doctor Unavailable Unavailable PROBLEMS Type Condition ICD9-CM Code ROU44-KP Code Onset Dates Condition Status SNOMED Code Problem History of illicit drug use Z87.898 Active 587139857 Problem MRSA (methicillin resistant staph aureus) culture positive Z22.322 Active 642950265 Problem Snoring R06.83 Active 16704339 Problem Neuropathy G62.9 Active 133412078 Problem Essential hypertension I10 Active 65734574 Problem Fatigue R53.83 Active 69800679 Problem Panic disorder without agoraphobia F41.0 Active 42627822 Problem Upper respiratory tract infection, unspecified type J06.9 Active 33627681 Problem Varicose veins of both lower extremities I83.93 Active 07412060 Problem Other chronic pain G89.29 Active 78221042 Problem Mild persistent asthma without complication J45.30 Active 973852943 Problem On home oxygen therapy Z99.81 Active 339739873062 Problem Mild chronic obstructive pulmonary disease J44.9 Active 626998878 Problem Major depressive disorder, recurrent episode, moderate F33.1 Active 957287410 Problem 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 Active 30258145 Problem COPD exacerbation J44.1 Active 754947840 Problem Mood disorder F39 Active 39370534 Problem Dysthymic disorder F34.1 Active 99789592 Problem Psychotic disorder F29 Active 90578841 Problem Impaired circulation I99.9 Active 64249430 Problem Agoraphobia F40.00 Active 07021234 Problem COPD (chronic obstructive pulmonary disease) with chronic bronchitis J44.9 Active 437701312 Problem Exertional asthma J45.990 Active 74394165 Problem 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 467473892 Problem Arthritis M19.90 Active [id number] ALLERGIES No Information ENCOUNTERS Encounter Location Date Diagnosis [facility] [address] [facility] [id number] [address] Nov, [place] [id number] [place] [address] Sep, [place] [address] [place] [id number] [place] [address] Sep, [place] [address] [place] [id number] [place] [address] Sep, Panic disorder without agoraphobia F41.0 [place] [address] [place] [id number] [place] [address] Aug, Panic disorder without agoraphobia F41.0 ; Major depressive disorder, recurrent episode, moderate F33.1 ; 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 ; Psychotic disorder F29 ; Tardive dyskinesia G24.01 and Morbid obesity E66.01 [place] [address] [place] [id number] [place] [address] Aug, Dysthymic disorder F34.1 and Psychotic disorder F29 [place] [address] [place] [id number] [place] [address] Aug, Encounter for Medicare annual wellness exam Z00.00 ; Morbid obesity E66.01 and 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 [place] [id number] [place] [address] Aug, Dysthymic disorder F34.1 and Psychotic disorder F29 [place] [address] [place] [id number] [place] [address] Aug, Neuropathy G62.9 ; Onychomycosis B35.1 and Xerosis of skin L85.3 [place] [address] [place] [id number] [place] [address] Jul, [place] [address] [place] [id number] [place] [address] Jul, Mood disorder F39 ; Wheezing R06.2 ; Choking, initial encounter T17.308A and Coughing R05 [place] [address] [place] [id number] [place] [address] 07 Jul, 2018 Low back pain M54.5 [facility] [address] [place] [id number] [place] [address] Jun, Flu-like symptoms R68.89 ; BMI 45.0-49.9, adult Z68.42 ; COPD exacerbation J44.1 and Acute bronchitis J20.9 [place] [address] [address] Jun, [place] [address] [address] May, [place] [address] [address] May, Onychomycosis B35.1 and 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990 and Encounter for immunization Z23 [facility] [address] [address] Feb, Skin fissures R23.4 ; Neuropathy G62.9 and Onychomycosis B35.1 [facility] [address] [address] 05 Feb, 2018 Dysthymic disorder F34.1 [place] [address] [address] 04 Feb, 2018 [place] [address] [address] Jan, [place] [address] [address] Jan, Abrasion of right elbow, initial encounter S50.311A ; Abrasion, right knee, initial encounter S80.211A and Sprain of other ligament of right ankle, initial encounter S93.491A [place] [address] [address] Jan, [facility] [address] [address] Jan, Injury of left ankle, initial encounter S99.912A ; Fall down stairs, initial encounter W10.8XXA and BMI 45.0-49.9, adult Z68.42 [place] [address] [place] [id number] [place] [address] Jan, COPD exacerbation J44.1 [place] [address] [address] Jan, Dysfunction of both eustachian 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 [place] [address] [address] Jan, Bronchitis J40 and Acute suppurative otitis media of left ear without spontaneous rupture of tympanic membrane, recurrence not specified H66.002 [place] [address] [place] [id number] [place] [address] Jan, [place] [address] [place] [id number] [place] [address] Jan, Bronchitis J40 and BMI 40.0-44.9, adult Z68.41 [place] [address] [address] Jan, [place] [address] [place] [id number] [place] [address] Dec, Gastric pain R10.9 [place] [address] [address] Dec, [place] [address] [place] [id number] [place] [address] Dec, History of illicit drug use Z87.898 ; Neuropathy G62.9 ; COPD (chronic obstructive pulmonary disease) with chronic bronchitis J44.9 and Acute pain of right knee M25.561 [place] [address] [place] [id number] [place] [address] Nov, [place] [address] [place] [id number] [place] [address] Nov, Onychomycosis B35.1 and Contusion of left foot, subsequent encounter S90.32XD [place] [address] [place] [id number] [place] [address] Nov, COPD exacerbation J44.1 [place] [address] [place] [id number] [place] [address] Sep, [place] [address] [place] [id number] [place] [address] Sep, Dysthymic disorder F34.1 ; Tobacco abuse Z72.0 ; Pain in right knee M25.561 ; Pain in left knee M25.562 ; Other chronic pain G89.29 and BMI 40.0- 44.9, adult Z68.41 [place] [address] [place] [id number] [place] [address] 22 Aug, 2017 Major depressive disorder, recurrent episode, moderate F33.1 and 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 [place] [address] [place] [id number] [place] [address] 14 Aug, 2017 Dysthymic disorder F34.1 ; Non-pressure chronic ulcer of left thigh, unspecified ulcer stage L97.129 ; Tobacco abuse Z72.0 ; Mild chronic obstructive pulmonary disease J44.9 and Forgetfulness R68.89 [place] [address] [address] 09 Aug, 2017 Onychomycosis B35.1 ; Fissure in skin of foot R23.4 and Foot callus L84 [facility] [address] [address] 26 Jul, 2017 Right medial knee pain M25.561 ; Upper respiratory tract infection, unspecified type J06.9 and BMI 40.0-44.9, adult Z68.41 [facility] [address] [address] 08 Jul, 2017 Nausea and vomiting, intractability of vomiting not specified, unspecified vomiting type R11.2 ; Left ear pain H92.02 and Gastric pain R10.[address] [address] Apr, Encounter for immunization Z23 [place] [address] [address] Apr, Onychomycosis B35.1 ; Xerosis of skin L85.3 ; Neuropathy G62.9 and 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 [place] [address] [place] [id number] [place] [address] Jan, Onychomycosis B35.1 and Neuropathy G62.[address] [place] [address] Dec, [facility] [address] [address] Dec, [facility] [address] [address] Nov, [facility] [address] [address] Aug, [facility] [address] [address] Aug, [facility] [address] [address] Jul, [facility] [address] [address] Jul, [facility] [address] [address] Jul, Decubitus ulcer of left thigh, stage 2 L89.892 [facility] [address] [address] 17 Jul, 2016 Decubitus ulcer of left thigh, stage 2 L89.892 [facility] [address] [address] 17 Jul, 2016 [facility] [address] [place] [id number] [address] 15 Jul, 2016 Decubitus ulcer of left thigh, stage 2 L89.892 [facility] [address] [place] [id number] [address] 14 Jul, 2016 [facility] [address] [address] 13 Jul, 2016 Cellulitis of other specified site L03.818 ; Illicit drug use F19.90 and Decubitus ulcer of left thigh, stage 2 L89.892 [facility] [address] [place] [id number] [place] [address] 08 Jul, 2016 [facility] [address] [place] [id number] [place] [address] Jul, Cellulitis of right breast N61.0 [facility] [address] [place] [id number] [place] [address] Jun, [facility] [address] [address] Jun, [facility] [address] [place] [id number] [place] [address] Jun, Wheezing R06.2 and Arthralgia, unspecified joint M25.50 [place] [address] [place] [id number] [place] [address] May, [place] [address] [address] May, [facility] [address] [place] [id number] [place] [address] May, [place] [address] [place] [id number] [place] [address] May, Shortness of breath R06.02 [place] [address] [place] [id number] [place] [address] May, Onychomycosis B35.1 and Fissure in skin of foot R23.4 [place] [address] [place] [id number] [place] [address] Apr, [facility] [address] [place] [id number] [place] [address] 18 Apr, 2016 Dizziness R42 [place] [address] [place] [id number] [place] [address] 14 Apr, 2016 Shortness of breath R06.02 ; Essential hypertension I10 ; Dizziness R42 and On home oxygen therapy Z99.81 [place] [address] [address] Apr, [facility] [address] [address] Apr, [facility] [id number] [place] [address] Apr, [facility] [address] [place] [id number] [place] [address] Apr, [facility] [address] [place] [id number] [place] [address], [place] [address] Apr, [facility] [address] [place] [id number] [place] [address], [place] [address] Apr, [facility] [address] [place] [id number] [place] [address] Apr, [facility] [address] [place] [id number] [place] [address] Mar, Mild chronic obstructive pulmonary disease J44.9 [facility] [address] [address] Mar, [facility] [id number] [place] [address] Mar, Epigastric pain R10.13 ; Low back pain M54.5 ; Other chronic pain G89.29 and Breast cancer screening Z12.39 [facility] [address] [address] Mar, [facility] [address] [address] Mar, [facility] [address] [address] Feb, [facility] [address] [address] Feb, [facility] [id number] [place] [address] Feb, Fissure in skin of foot R23.4 and Onychomycosis B35.1 [place] [address] [place] [id number] [place] [address] Jan, Agoraphobia F40.00 [place] [address] [place] [id number] [place] [address] Dec, Agoraphobia F40.00 [place] [address] [address] Dec, Mild persistent asthma without complication J45.30 ; Dysthymic disorder F34.1 and Upper respiratory tract infection, unspecified type J06.9 [place] [address] [place] [id number] [place] [address] Nov, Agoraphobia F40.00 [place] [address] [place] [id number] [place] [address] October, Agoraphobia F40.00 [place] [address] [place] [id number] [place] [address] Sep, Panic disorder without agoraphobia F41.0 ; Agoraphobia F40.00 and Dysthymic disorder F34.1 [place] [address] [place] [id number] [place] [address] Sep, Panic attacks F41.0 [place] [address] [place] [id number] [place] [address] Sep, [place] [address] [place] [id number] [place] [address] Sep, Panic disorder without agoraphobia F41.0 ; Varicose veins of both lower extremities I83.93 and Fatigue R53.83 [place] [address] [place] [id number] [place] [address] 14 Sep, 2015 Fatigue R53.83 [place] [address] [place] [id number] [place] [address] Sep, [place] [address] [address] Aug, [place] [id number] [place] [address] Aug, [place] [address] [place] [id number] [place] [address] Aug, 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 [place] [address] [place] [id number] [place] [address] Aug, Panic disorder without agoraphobia F41.0 ; Agoraphobia F40.00 and Dysthymic disorder F34.1 [place] [address] [address] Aug, Shortness of breath R06.02 ; Panic attacks F41.0 ; COPD (chronic obstructive pulmonary disease) J44.9 ; Tobacco abuse Z72.0 ; Family history of diabetes mellitus Z83.3 and Weight gain R63.5 [place] [id number] [place] [address] Aug, [place] [address] [address] Jul, [place] [id number] [place] [address] Jun, Onychomycosis B35.1 ; Neuropathy G62.9 and Impaired circulation I99.9 [place] [address] [address] 09 Mar, 2015 Fissure in skin of foot R23.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 [place] [address] [address] 18 Feb, 2015 Family history of coronary arteriosclerosis V17.3 [place] [address] [address] 15 Feb, 2015 Allergic rhinitis due to pollen 477.0 ; Unspecified breast screening V76.10 ; Anxiety 300.00 and Family history of coronary arteriosclerosis V17.3 [facility] [address], [place] [address] Jan, [facility] [address] [address] Dec, [facility] [address] [address] Dec, Onychomycosis 110.1 and Skin fissures 709.8 [facility] [address] [address] Sep, [facility] [address] [address] Sep, [facility] [address] [address] Aug, [facility] [address], [place] [address] Aug, [facility] [address] [address] Jul, [facility] [address], [place] [address] Jul, [facility] [address], [place] [address] Jun, [facility] [address], [place] [address] Jun, [facility] [address], [place] [address] Jun, [facility] [address] [address] Jun, [facility] [address] [id number] [place] [address] Jun, [facility] [address] [id number] [place] [address] May, [facility] [place] [facility] [address] [id number] [place] [address] May, [facility] [place] [facility] [address] [id number] [place] [address] May, [facility] [place] [facility] [address] [id number] [place] [address] May, [facility] [place] [facility] [address] [id number] [place] [address] May, [facility] [place] [facility] [address] [id number] [place] [address] May, [facility] [place] [facility] [address] [id number] [place] [address] May, [facility] [address] [id number] [place] [address] May, [facility] [place] [facility] [address] [id number] [place] [address] Apr, [facility] [place] [facility] [address] [id number] [place] [address] Apr, [facility] [place] [facility] [address] [id number] [place] [address] Apr, [facility] [place] [facility] [address] [id number] [place] [address] Apr, [facility] [place] [facility] [address] [id number] [place] [address] Apr, [facility] [place] [facility] [address] [id number] [place] [address] Apr, [facility] [place] [facility] [address] [id number] [place] [address] Apr, [facility] [place] [facility] [address] [id number] [place] [address] Apr, [facility] [place] [facility] [address] [id number] [place] [address] Apr, [facility] [place] [facility] [address] [id number] [place] [address] Apr, [facility] [place] [facility] [address] [id number] [place] [address] Mar, [facility] [place] [facility] [address] [id number] [place] [address] Mar, [facility] [place] [facility] [address] [id number] [place] [address] Mar, [facility] [place] [facility] [address] [id number] [place] [address] Mar, [facility] [place] [facility] [address] [id number] [place] [address] Mar, [facility] [place] [facility] [address] [id number] [place] [address] Mar, [facility] [place] [facility] [address] [id number] [place] [address] Mar, [facility] [place] [facility] [address] [id number] [place] [address] Mar, [facility] [place] [facility] [address] [id number], [place] [address] Mar, [facility] [place] [facility] [address] [id number] [place] [address] Mar, [facility] [place] [facility] [address] [id number] [place] [address] Mar, [facility] [place] [facility] [address] [id number] [place] [address] Mar, [facility] [place] [facility] [address] [id number] [place] [address] 22 Mar, 2013 [facility] [place] [facility] [address] [id number] [place] [address] 22 Mar, 2013 [facility] [place] [facility] [address] [id number] [place] [address] 22 Mar, 2013 [facility] [place] [facility] [address] [id number] [place] [address] 20 Mar, 2013 [facility] [place] [facility] [address] [id number] [place] [address] 20 Mar, 2013 [facility] [place] [facility] [address] [id number] [place] [address] 16 Mar, 2013 [facility] [place] [facility] [address] [id number] [place] [address] 16 Mar, 2013 [facility] [place] [facility] [address] [id number] [place] [address] 15 Mar, 2013 [facility] [place] [facility] [address] [id number] [place] [address] 14 Mar, 2013 [facility] [place] [facility] [address] [id number] [place] [address] 14 Mar, 2013 [facility] [place] [facility] [address] [id number] [place] [address] 14 Mar, 2013 [facility] [place] [facility] [address] [id number] [place] [address] 14 Mar, 2013 [facility] [place] [facility] [address] [id number], [place] [address] 09 Mar, 2013 [facility] [place] [facility] [address] [id number] [place] [address] 09 Mar, 2013 [facility] [place] [facility] [address] [id number], [place] [address] 09 Mar, 2013 [facility] [place] [facility] [address] [id number], [place] [address] 09 Mar, 2013 [facility] [place] [facility] [address] [id number] [place] [address] 30 Sep, 2013 [facility] [place] [facility] [address] [id number] [place] [address] 30 Sep, 2013 [facility] [place] [facility] [address] [id number] [place] [address] 30 Feb, 2013 [facility] [place] [facility] [address] [id number] [place] [address] 30 Sep, 2013 [facility] [place] [facility] [address] [id number] [place] [address] 26 Sep, 2013 [facility] [place] [facility] [address] [id number] [place] [address] 26 Feb, 2013 [facility] [place] [facility] [address] [id number] [place] [address] 09 Feb, 2013 [facility] [place] [facility] [address] [id number] [place] [address] 09 Feb, 2013 [facility] [place] [facility] [address] [id number] [place] [address] 03 Feb, 2013 [facility] [place] [facility] [address] [id number] [place] [address] 03 Feb, 2013 [facility] [place] [facility] [address] [id number] [place] [address] Feb, 2013 [facility] [place] [facility] [address] [id number] [place] [address] 03 Feb, 2013 [facility] [place] [facility] [address] [id number] [place] [address] Jan, [facility] [place] [facility] [address] [id number] [place] [address] Jan, [facility] [place] [facility] [address] [id number] [place] [address] 14 Jan, 2014 [facility] [place] [facility] [address] [id number] [place] [address] Jan, [facility] [place] [facility] [address] [id number] [place] [address] Jan, [facility] [place] [facility] [address] [id number] [place] [address] Jan, [facility] [place] [facility] [address] [id number] [place] [address] Jan, [facility] [place] [facility] [address] [id number] [place] [address] Jan, [facility] [place] [facility] [address] [id number] [place] [address] Jan, [facility] [place] [facility] [address] [id number] [place] [address] Jan, [facility] [place] [facility] [address] [id number] [place] [address] Jan, [facility] [place] [facility] [address] [id number] [place] [address] Jan, [facility] [place] [facility] [address] [id number] [place] [address] Jan, [facility] [place] [facility] [address] [id number] [place] [address] Dec, [facility] [place] [facility] [address] [id number] [place] [address] Dec, [facility] [place] [facility] [address] [id number] [place] [address] Dec, [facility] [place] [facility] [address] [id number] [place] [address] Dec, [facility] [place] [facility] [address] [id number] [place] [address] Dec, [facility] [place] [facility] [address] [id number] [place] [address] Dec, [facility] [place] [facility] [address] [id number] [place] [address] Dec, 2013 [facility] [place] [facility] [address] [id number] [place] [address] Dec, 2013 [facility] [place] [facility] [address] [id number] [place] [address] Dec, 2013 [facility] [place] [facility] [address] [id number] [place] [address] Dec, 2013 [facility] [place] [facility] [address] [id number] [place] [address] Dec, 2013 [facility] [place] [facility] [address] [id number] [place] [address] Dec, [facility] [place] [facility] [address] [id number] [place] [address] Dec, [facility] [place] [facility] [address] [id number] [place] [address] Dec, [facility] [place] [facility] [address] [id number] [place] [address] Dec, [facility] [place] [facility] [address] [id number] [place] [address] Dec, [facility] [place] [facility] [address] [id number] [place] [address] Dec, [facility] [place] [facility] [address] [id number] [place] [address] Dec, [facility] [place] [facility] [address] [id number] [place] [address] Nov, [facility] [place] [facility] [address] [id number] [place] [address] Nov, [facility] [place] [facility] [address] [id number] [place] [address] Nov, [facility] [place] [facility] [address] [id number] [place] [address] Nov, [facility] [place] [facility] [address] [id number] [place] [address] Nov, [facility] [place] [facility] [address] [id number] [place] [address] Nov, [facility] [place] [facility] [address] [id number] [place] [address] Nov, [facility] [place] [facility] [address] [id number] [place] [address] Nov, [facility] [place] [facility] [address] [id number] [place] [address] Nov, [facility] [place] [facility] [address] [id number] [place] [address] Nov, [facility] [place] [facility] [address] [id number] [place] [address] Nov, [facility] [place] [facility] [address] [id number] [place] [address] Nov, [facility] [place] [facility] [address] [id number] [place] [address] Nov, [facility] [place] [facility] [address] [id number] [place] [address] Nov, [facility] [place] [facility] [address] [id number] [place] [address] Nov, [facility] [place] [facility] [address] [id number] [place] [address] Nov, [facility] [place] [facility] [address] [id number] [place] [address] Nov, [facility] [place] [facility] [address] [id number] [place] [address] Nov, [facility] [place] [facility] [address] [id number] [place] [address] Nov, [facility] [place] [facility] [address] [id number] [place] [address] Nov, [facility] [place] [facility] [address] [id number] [place] [address] October, [facility] [place] [facility] [address] [id number] [place] [address] October, [facility] [place] [facility] [address] [id number] [place] [address] October, [facility] [place] [facility] [address] [id number] [place] [address] October, [facility] [place] [facility] [address] [id number] [place] [address] Sep, [facility] [place] [facility] [address] [id number] [place] [address] Sep, [facility] [place] [facility] [address] [id number] [place] [address] Sep, [facility] [place] [facility] [address] [id number] [place] [address] Sep, [facility] [place] [facility] [address] [id number] [place] [address] Sep, [facility] [place] [facility] [address] [id number] [place] [address] Sep, [facility] [place] [facility] [address] [id number] [place] [address] Sep, [facility] [place] [facility] [address] [id number] [place] [address] Sep, [facility] [place] [facility] [address] [id number] [place] [address] Sep, [facility] [place] [facility] [address] [id number] [place] [address] Aug, [facility] [place] [facility] [address] [id number] [place] [address] Aug, [facility] [place] [facility] [address] [id number] [place] [address] Aug, [facility] [address] [id number] [place] [address] Aug, [facility] [place] [facility] [address] [id number] [place] [address] Aug, [facility] [place] [facility] [address] [id number] [place] [address] Aug, [facility] [place] [facility] [address] [id number] [place] [address] Aug, [facility] [place] [facility] [address] [id number] [place] [address] Aug, [facility] [place] [facility] [address] [id number] [place] [address] Jul, [facility] [place] [facility] [address] [id number] [place] [address] Jul, [facility] [place] [facility] [address] [id number] [place] [address] Jun, [facility] [place] [facility] [address] [id number] [place] [address] Jun, [facility] [place] [facility] [address] [id number] [place] [address] Jun, [facility] [place] [facility] [address] [id number] [place] [address] Jun, [facility] [place] [facility] [address] [id number] [place] [address] Jun, [facility] [place] [facility] [address] [id number] [place] [address] Jun, [facility] [place] [facility] [address] [id number] [place] [address] Jun, [facility] [place] [facility] [address] [id number] [place] [address] 15 Jun, 2013 [facility] [address] [id number] [place] [address] 15 Jun, 2013 [facility] [place] [facility] [address] [id number] [place] [address] 14 Jun, 2013 [facility] [place] [facility] [address] [id number] [place] [address] Jun, [facility] [place] [facility] [address] [id number] [place] [address] Jun, [facility] [place] [facility] [address] [id number] [place] [address] May, [facility] [place] [facility] [address] [id number] [place] [address] May, [facility] [place] [facility] [address] [id number] [place] [address] May, [facility] [place] [facility] [address] [id number] [place] [address] 31 May, 2013 [facility] [place] [facility] [address] [id number] [place] [address] 31 May, 2013 [facility] [place] [facility] [address] [id number] [place] [address] 31 May, 2013 [facility] [place] [facility] [address] [id number] [place] [address] 26 May, 2013 [facility] [place] [facility] [address] [id number] [address] 23 May, 2013 [facility] [place] [facility] [address] [id number] [place] [address] 23 May, 2013 [facility] [place] [facility] [address] [id number] [place] [address] 16 May, 2013 [facility] [place] [facility] [address] [id number] [place] [address] 16 May, 2013 [facility] [place] [facility] [address] [id number] [place] [address] May, [facility] [address] [id number] [place] [address] May, [facility] [place] [facility] [address] [id number] [place] [address] Apr, [facility] [place] [facility] [address] [id number] [place] [address] Apr, [facility] [place] [facility] [address] [id number] [place] [address] Mar, [facility] [place] [facility] [address] [id number] [place] [address] Mar, [facility] [place] [facility] [address] [id number] [place] [address] Feb, [facility] [place] [facility] [address] [id number] [place] [address] Feb, [facility] [place] [facility] [address] [id number] [place] [address] Feb, [facility] [place] [facility] [address] [id number] [place] [address] Feb, [facility] [place] [facility] [address] [id number] [place] [address] Jan, [facility] [place] [facility] [address] [id number] [place] [address] Jan, [facility] [place] [facility] [address] [id number] [place] [address] Jan, [facility] [place] [facility] [address] [id number] [place] [address] Jan, [facility] [place] [facility] [address] [id number] [place] [address] Jan, [facility] [place] [facility] [address] [id number] [place] [address] Jan, [facility] [place] [facility] [address] [id number] [place] [address] Dec, [facility] [address] [id number] [place] [address] Dec, [facility] [place] [facility] [address] [id number] [place] [address] Dec, [facility] [address] [id number] [place] [address] Dec, [facility] [address] [id number] [place] [address] Nov, [facility] [place] [facility] [address] [id number] [place] [address] October, [facility] [address] [id number] [place] [address] October, [facility] [address] [id number] [place] [address] October, [facility] [address] [id number] [place] [address] Sep, [facility] [address] [id number] [place] [address] Sep, [facility] [place] [facility] [address] [id number] [place] [address] Jun, [facility] [place] [facility] [address] [id number] [place] [address] Jun, [facility] [place] [facility] [address] [id number] [place] [address] Jun, [facility] [place] [facility] [address] [id number] [place] [address] Apr, [facility] [place] [facility] [address] [id number] [place] [address] Apr, [facility] [place] [facility] [address] [id number] [place] [address] Apr, [facility] [place] [facility] [address] [id number] [place] [address] Apr, [facility] [place] [facility] [address] [id number] [place] [address] Mar, [facility] [place] [facility] [address] [id number] [place] [address] Mar, [facility] [place] [facility] [address] [id number] [place] [address] Mar, [facility] [place] [facility] [address] [id number] [place] [address] Mar, [facility] [place] [facility] [address] [id number] [place] [address] Feb, [facility] [place] [facility] [address] [id number] [place] [address] Feb, [facility] [place] [facility] [address] [id number] [place] [address] Feb, [facility] [place] [facility] [address] [id number] [place] [address] Jan, [facility] [place] [facility] [address] [id number] [place] [address] Jan, [facility] [place] [facility] [address] [id number] [place] [address] Jan, [facility] [place] [facility] [address] [id number] [place] [address] Jan, [facility] [place] [facility] [address] [id number] [place] [address] Dec, [facility] [place] [facility] [address] [facility] [id number] [place] [address] Dec, [facility] [place] [facility] [address] [facility] [id number] [place] [address] Nov, [facility] [place] [facility] [address] [id number] [place] [address] Nov, [facility] [address] [id number] [place] [address] October, [facility] [address] [id number] [place] [address] October, [facility] [address] [id number] [place] [address] October, [facility] [address] [id number] [place] [address] Sep, [facility] [address] [id number] [place] [address] Sep, [facility] [address] [id number] [place] [address] Sep, [facility] [address] [id number] [place] [address] Aug, [facility] [address] [id number] [place] [address] Aug, [facility] [address] [id number] [place] [address] Aug, [facility] [address] [facility] [id number] [place] [address] 15 Aug, 2011 [facility] [address] [id number] [place] [address] Aug, [facility] [address] [id number] [place] [address] 23 Jul, 2011 [facility] [address] [id number] [place] [address] 16 Jul, 2011 [facility] [address] [id number] [place] [address] 13 Jul, 2011 [facility] [address] [id number] [place] [address] Jul, [facility] [place] [facility] [address] [id number] [place] [address] Jul, [facility] [place] [facility] [address] [id number] [place] [address] Jul, [facility] [place] [facility] [address] [id number] [place] [address] Jul, [facility] [place] [facility] [address] [id number] [place] [address] Jul, [facility] [place] [facility] [address] [id number] [place] [address] Jun, [facility] [place] [facility] [address] [id number] [place] [address] Jun, [facility] [place] [facility] [address] [id number] [place] [address] May, [facility] [place] [facility] [address] [id number] [place] [address] May, [facility] [place] [facility] [address] [id number] [place] [address] May, [facility] [place] [facility] [address] [facility] [id number] [place] [address] May, [facility] [place] [facility] [address] [facility] [id number] [address] Apr, [facility] [place] [facility] [address] [id number] [place] [address] Apr, [facility] [place] [facility] [address] [id number] [place] [address] Apr, [facility] [place] [facility] [address] [facility] [id number] [place] [address] Mar, [facility] [place] [facility] [address] [facility] [id number] [place] [address] Mar, [facility] [place] [facility] [address] [id number] [place] [address] 18 Mar, 2011 [facility] [address] [id number] [place] [address] 2011 [facility] [address] [id number] [place] [address] Dec, [facility] [address] [id number] [place] [address] October, [facility] [address] [id number] [place] [address] 28 May, 2010 [facility] [address] [id number] [place] [address] 13 May, 2010 [facility] [address] [id number] [place] [address] 13 May, 2010 [facility] [address] [facility] [id number] [place] [address] 06 May, 2010 [facility] [address] [id number] [place] [address] 26 Mar, 2010 [facility] [address] [facility] [id number] [place] [address] 25 Mar, 2010 [facility] [address] [facility] [id number] [place] [address] 31 May, 2009 [facility] [address] [id number] [place] [address] 30 May, 2009 [facility] [address] [id number] [place] [address] 08 May, 2009 [facility] [address] [id number] [place] [address] 08 May, 2009 [facility] [address] [facility] [id number] [place] [address] Apr, [facility] [address] [facility] [id number] [place] [address] Apr, [facility] [address] [facility] [id number] [place] [address] October, IMMUNIZATIONS No Known Immunizations SOCIAL HISTORY Never Assessed REASON FOR VISIT EMR-[facility] PLAN OF CARE [...]
--- OUTSIDE RECORDS SUMMARY | 2019-01-13 10:25 | XMS REPORT ---
Author Author Migration, Doctor Organization [facility] Address Unknown Phone Unavailable Care Team Providers Care Inside Steward/Stewardess Name Role Phone Migration, Doctor Unavailable Unavailable PROBLEMS Type Condition ICD9-CM Code OLA54-CK Code Onset Dates Condition Status SNOMED Code Problem History of illicit drug use Z87.898 Active 469677410 Problem MRSA (methicillin resistant staph aureus) culture positive Z22.322 Active 817206586 Problem Snoring R06.83 Active 02759318 Problem Neuropathy G62.9 Active 354645918 Problem Essential hypertension I10 Active 20166247 Problem Fatigue R53.83 Active 35182263 Problem Panic disorder without agoraphobia F41.0 Active 25026402 Problem Upper respiratory tract infection, unspecified type J06.9 Active 09744725 Problem Varicose veins of both lower extremities I83.93 Active 02833267 Problem Other chronic pain G89.29 Active 33719132 Problem Mild persistent asthma without complication J45.30 Active 576598413 Problem On home oxygen therapy Z99.81 Active 921806995194 Problem Mild chronic obstructive pulmonary disease J44.9 Active 914318005 Problem Major depressive disorder, recurrent episode, moderate F33.1 Active 405742350 Problem 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 Active 65135748 Problem COPD exacerbation J44.1 Active 955053849 Problem Mood disorder F39 Active 18382817 Problem Dysthymic disorder F34.1 Active 23476865 Problem Psychotic disorder F29 Active 81580687 Problem Impaired circulation I99.9 Active 02078950 Problem Agoraphobia F40.00 Active 80362907 Problem COPD (chronic obstructive pulmonary disease) with chronic bronchitis J44.9 Active 799120869 Problem Exertional asthma J45.990 Active 74664401 Problem 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 199894119 Problem Arthritis M19.90 Active 9154098 ALLERGIES No Information ENCOUNTERS Encounter Location Date Diagnosis [facility] [address] [facility] [id number] [address] Nov, [place] [id number] [place] [address] Sep, [place] [address] [place] [id number] [place] [address] Sep, [place] [address] [place] [id number] [place] [address] Sep, Panic disorder without agoraphobia F41.0 [place] [address] [place] [id number] [place] [address] Aug, Panic disorder without agoraphobia F41.0 ; Major depressive disorder, recurrent episode, moderate F33.1 ; 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 ; Psychotic disorder F29 ; Tardive dyskinesia G24.01 and Morbid obesity E66.01 [place] [address] [place] [id number] [place] [address] Aug, Dysthymic disorder F34.1 and Psychotic disorder F29 [place] [address] [place] [id number] [place] [address] Aug, Encounter for Medicare annual wellness exam Z00.00 ; Morbid obesity E66.01 and 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 [place] [id number] [place] [address] Aug, Dysthymic disorder F34.1 and Psychotic disorder F29 [place] [address] [place] [id number] [place] [address] Aug, Neuropathy G62.9 ; Onychomycosis B35.1 and Xerosis of skin L85.3 [place] [address] [place] [id number] [place] [address] Jul, [place] [address] [place] [id number] [place] [address] Jul, Mood disorder F39 ; Wheezing R06.2 ; Choking, initial encounter T17.308A and Coughing R05 [place] [address] [place] [id number] [place] [address] 07 Jul, 2018 Low back pain M54.5 [facility] [address] [place] [id number] [place] [address] Jun, Flu-like symptoms R68.89 ; BMI 45.0-49.9, adult Z68.42 ; COPD exacerbation J44.1 and Acute bronchitis J20.9 [place] [address] [address] Jun, [place] [address] [address] May, [place] [address] [address] May, Onychomycosis B35.1 and 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 [place] [address] [address] May, Low back pain M54.5 and Edema leg R60.[address] [address] May, BMI 45.0-49.9, adult Z68.42 ; Well woman exam with routine gynecological exam Z01.419 and Breast cancer screening Z12.[address] [address] Apr, Arthritis M19.90 [place] [address] [place] [id number] [place] [address] 16 Apr, 2018 Arthritis M19.90 and Otalgia of both ears H92.[address] [address] Feb, [place] [address] [address] Feb, Low back pain M54.5 ; Other chronic pain G89.29 ; Exertional asthma J45.990 and Encounter for immunization Z23 [facility] [address] [address] Feb, Skin fissures R23.4 ; Neuropathy G62.9 and Onychomycosis B35.1 [facility] [address] [address] 05 Feb, 2018 Dysthymic disorder F34.1 [place] [address] [address] 04 Feb, 2018 [place] [address] [address] Jan, [place] [address] [address] Jan, Abrasion of right elbow, initial encounter S50.311A ; Abrasion, right knee, initial encounter S80.211A and Sprain of other ligament of right ankle, initial encounter S93.491A [place] [address] [address] Jan, [facility] [address] [address] Jan, Injury of left ankle, initial encounter S99.912A ; Fall down stairs, initial encounter W10.8XXA and BMI 45.0-49.9, adult Z68.42 [place] [address] [place] [id number] [place] [address] Jan, COPD exacerbation J44.1 [place] [address] [address] Jan, Dysfunction of both eustachian 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 [place] [address] [address] Jan, Bronchitis J40 and Acute suppurative otitis media of left ear without spontaneous rupture of tympanic membrane, recurrence not specified H66.002 [place] [address] [place] [id number] [place] [address] Jan, [place] [address] [place] [id number] [place] [address] Jan, Bronchitis J40 and BMI 40.0-44.9, adult Z68.41 [place] [address] [address] Jan, [place] [address] [place] [id number] [place] [address] Dec, Gastric pain R10.9 [place] [address] [address] Dec, [place] [address] [place] [id number] [place] [address] Dec, History of illicit drug use Z87.898 ; Neuropathy G62.9 ; COPD (chronic obstructive pulmonary disease) with chronic bronchitis J44.9 and Acute pain of right knee M25.561 [place] [address] [place] [id number] [place] [address] Nov, [place] [address] [place] [id number] [place] [address] Nov, Onychomycosis B35.1 and Contusion of left foot, subsequent encounter S90.32XD [place] [address] [place] [id number] [place] [address] Nov, COPD exacerbation J44.1 [place] [address] [place] [id number] [place] [address] Sep, [place] [address] [place] [id number] [place] [address] Sep, Dysthymic disorder F34.1 ; Tobacco abuse Z72.0 ; Pain in right knee M25.561 ; Pain in left knee M25.562 ; Other chronic pain G89.29 and BMI 40.0- 44.9, adult Z68.41 [place] [address] [place] [id number] [place] [address] 22 Aug, 2017 Major depressive disorder, recurrent episode, moderate F33.1 and 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 [place] [address] [place] [id number] [place] [address] 14 Aug, 2017 Dysthymic disorder F34.1 ; Non-pressure chronic ulcer of left thigh, unspecified ulcer stage L97.129 ; Tobacco abuse Z72.0 ; Mild chronic obstructive pulmonary disease J44.9 and Forgetfulness R68.89 [place] [address] [address] 09 Aug, 2017 Onychomycosis B35.1 ; Fissure in skin of foot R23.4 and Foot callus L84 [facility] [address] [address] 26 Jul, 2017 Right medial knee pain M25.561 ; Upper respiratory tract infection, unspecified type J06.9 and BMI 40.0-44.9, adult Z68.41 [facility] [address] [address] 08 Jul, 2017 Nausea and vomiting, intractability of vomiting not specified, unspecified vomiting type R11.2 ; Left ear pain H92.02 and Gastric pain R10.[address] [address] Apr, Encounter for immunization Z23 [place] [address] [address] Apr, Onychomycosis B35.1 ; Xerosis of skin L85.3 ; Neuropathy G62.9 and 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 [place] [address] [place] [id number] [place] [address] Jan, Onychomycosis B35.1 and Neuropathy G62.[address] [place] [address] Dec, [facility] [address] [address] Dec, [facility] [address] [address] Nov, [facility] [address] [address] Aug, [facility] [address] [address] Aug, [facility] [address], [place] [address] Jul, [facility] [address], [place] [address] Jul, [facility] [address] [address] Jul, Decubitus ulcer of left thigh, stage 2 L89.892 [facility] [address] [address] 17 Jul, 2016 Decubitus ulcer of left thigh, stage 2 L89.892 [facility] [address], [place] [address] 17 Jul, 2016 [facility] [address] [place] [id number] [address] 15 Jul, 2016 Decubitus ulcer of left thigh, stage 2 L89.892 [facility] [address] [place] [id number] [address] 14 Jul, 2016 [facility] [address] [address] 13 Jul, 2016 Cellulitis of other specified site L03.818 ; Illicit drug use F19.90 and Decubitus ulcer of left thigh, stage 2 L89.892 [facility] [address] [place] [id number] [place] [address] 08 Jul, 2016 [facility] [address] [place] [id number] [place] [address] Jul, Cellulitis of right breast N61.0 [facility] [address] [place] [id number] [place] [address] Jun, [facility] [address] [address] Jun, [facility] [address] [place] [id number] [place] [address] Jun, Wheezing R06.2 and Arthralgia, unspecified joint M25.50 [place] [address] [place] [id number] [place] [address] May, [place] [address] [address] May, [facility] [address] [place] [id number] [place] [address] May, [place] [address] [place] [id number] [place] [address] May, Shortness of breath R06.02 [place] [address] [place] [id number] [place] [address] May, Onychomycosis B35.1 and Fissure in skin of foot R23.4 [place] [address] [place] [id number] [place] [address] Apr, [facility] [address] [place] [id number] [place] [address] 18 Apr, 2016 Dizziness R42 [place] [address] [place] [id number] [place] [address] 14 Apr, 2016 Shortness of breath R06.02 ; Essential hypertension I10 ; Dizziness R42 and On home oxygen therapy Z99.81 [place] [address] [address] Apr, [facility] [address], [place] [address] Apr, [facility] [address] [place] [address] Apr, [facility] [address] [place] [id number] [place] [address] Apr, [facility] [address] [place] [id number] [place] [address], [place] [address] Apr, [facility] [address] [place] [id number] [place] [address], [place] [address] Apr, [facility] [address] [place] [id number] [place] [address] Apr, [facility] [address] [place] [id number] [place] [address] Mar, Mild chronic obstructive pulmonary disease J44.9 [facility] [address], [place] [address] Mar, [facility] [id number] [place] [address] Mar, Epigastric pain R10.13 ; Low back pain M54.5 ; Other chronic pain G89.29 and Breast cancer screening Z12.39 [facility] [address], [place] [address] Mar, [facility] [address], [place] [address] Mar, [facility] [address], [place] [address] Feb, [facility] [address], [place] [address] Feb, [facility] [id number] [place] [address] Feb, Fissure in skin of foot R23.4 and Onychomycosis B35.1 [place] [address] [place] [id number] [place] [address] Jan, Agoraphobia F40.00 [place] [address] [place] [id number] [place] [address] Dec, Agoraphobia F40.00 [place] [address] [address] Dec, Mild persistent asthma without complication J45.30 ; Dysthymic disorder F34.1 and Upper respiratory tract infection, unspecified type J06.9 [place] [address] [place] [id number] [place] [address] Nov, Agoraphobia F40.00 [place] [address] [place] [id number] [place] [address] October, Agoraphobia F40.00 [place] [address] [place] [id number] [place] [address] Sep, Panic disorder without agoraphobia F41.0 ; Agoraphobia F40.00 and Dysthymic disorder F34.1 [place] [address] [place] [id number] [place] [address] Sep, Panic attacks F41.0 [place] [address] [place] [id number] [place] [address] Sep, [place] [address] [place] [id number] [place] [address] Sep, Panic disorder without agoraphobia F41.0 ; Varicose veins of both lower extremities I83.93 and Fatigue R53.83 [place] [address] [place] [id number] [place] [address] 14 Sep, 2015 Fatigue R53.83 [place] [address] [place] [id number] [place] [address] Sep, [place] [address], [place] [address] Aug, [place] [id number] [place] [address] Aug, [place] [address] [place] [id number] [place] [address] Aug, 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 [place] [address] [place] [id number] [place] [address] Aug, Panic disorder without agoraphobia F41.0 ; Agoraphobia F40.00 and Dysthymic disorder F34.1 [place] [address], [place] [address] Aug, Shortness of breath R06.02 ; Panic attacks F41.0 ; COPD (chronic obstructive pulmonary disease) J44.9 ; Tobacco abuse Z72.0 ; Family history of diabetes mellitus Z83.3 and Weight gain R63.5 [place] [id number] [place] [address] Aug, [place] [address], [place] [address] Jul, [place] [id number] [place] [address] Jun, Onychomycosis B35.1 ; Neuropathy G62.9 and Impaired circulation I99.9 [place] [address], [place] [address] 09 Mar, 2015 Fissure in skin of foot R23.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 [place] [address], [place] [address] 18 Feb, 2015 Family history of coronary arteriosclerosis V17.3 [place] [address], [place] [address] 15 Feb, 2015 Allergic rhinitis due to pollen 477.0 ; Unspecified breast screening V76.10 ; Anxiety 300.00 and Family history of coronary arteriosclerosis V17.3 [facility] [address], [place] [address] Jan, [facility] [address], [place] [address] Dec, [facility] [address], [place] [address] Dec, Onychomycosis 110.1 and Skin fissures 709.8 [facility] [address], [place] [address] Sep, [facility] [address], [place] [address] Sep, [facility] [address], [place] [address] Aug, [facility] [address], [place] [address] Aug, [facility] [address], [place] [address] Jul, [facility] [address], [place] [address] Jul, [facility] [address], [place] [address] Jun, [facility] [address], [place] [address] Jun, [facility] [address], [place] [address] Jun, [facility] [address], [place] [address] Jun, [facility] [address] [place] [id number] [place] [address] Jun, [facility] [address] [id number] [place] [address] May, [facility] [place] [facility] [address] [id number] [place] [address] May, [facility] [place] [facility] [address] [id number] [place] [address] May, [facility] [place] [facility] [address] [id number] [place] [address] May, [facility] [place] [facility] [address] [id number] [place] [address] May, [facility] [place] [facility] [address] [id number] [place] [address] May, [facility] [place] [facility] [address] [id number] [place] [address] May, [facility] [address] [id number] [place] [address] May, [facility] [place] [facility] [address] [id number] [place] [address] Apr, [facility] [place] [facility] [address] [id number] [place] [address] Apr, [facility] [place] [facility] [address] [id number] [place] [address] Apr, [facility] [place] [facility] [address] [id number] [place] [address] Apr, [facility] [place] [facility] [address] [id number] [place] [address] Apr, [facility] [place] [facility] [address] [id number] [place] [address] Apr, [facility] [place] [facility] [address] [id number] [place] [address] Apr, [facility] [place] [facility] [address] [id number] [place] [address] Apr, [facility] [place] [facility] [address] [id number] [place] [address] Apr, [facility] [place] [facility] [address] [id number] [place] [address] Apr, [facility] [place] [facility] [address] [id number] [place] [address] Mar, [facility] [place] [facility] [address] [id number] [place] [address] Mar, [facility] [place] [facility] [address] [id number] [place] [address] Mar, [facility] [place] [facility] [address] [id number] [place] [address] Mar, [facility] [place] [facility] [address] [id number] [place] [address] Mar, [facility] [place] [facility] [address] [id number] [place] [address] Mar, [facility] [place] [facility] [address] [id number] [place] [address] Mar, [facility] [place] [facility] [address] [id number] [place] [address] Mar, [facility] [place] [facility] [address] [id number], [place] [address] Mar, [facility] [place] [facility] [address] [id number] [place] [address] Mar, [facility] [place] [facility] [address] [id number] [place] [address] Mar, [facility] [place] [facility] [address] [id number] [place] [address] Mar, [facility] [place] [facility] [address] [id number] [place] [address] 22 Mar, 2013 [facility] [place] [facility] [address] [id number] [place] [address] 22 Mar, 2013 [facility] [place] [facility] [address] [id number] [place] [address] 22 Mar, 2013 [facility] [place] [facility] [address] [id number] [place] [address] 20 Mar, 2013 [facility] [place] [facility] [address] [id number] [place] [address] 20 Mar, 2013 [facility] [place] [facility] [address] [id number] [place] [address] 16 Mar, 2013 [facility] [place] [facility] [address] [id number] [place] [address] 16 Mar, 2013 [facility] [place] [facility] [address] [id number] [place] [address] 15 Mar, 2013 [facility] [place] [facility] [address] [id number] [place] [address] 14 Mar, 2013 [facility] [place] [facility] [address] [id number] [place] [address] 14 Mar, 2013 [facility] [place] [facility] [address] [id number] [place] [address] 14 Mar, 2013 [facility] [place] [facility] [address] [id number] [place] [address] 14 Mar, 2013 [facility] [place] [facility] [address] [id number], [place] [address] 09 Mar, 2013 [facility] [place] [facility] [address] [id number] [place] [address] 09 Mar, 2013 [facility] [place] [facility] [address] [id number], [place] [address] 09 Mar, 2013 [facility] [place] [facility] [address] [id number], [place] [address] 09 Mar, 2013 [facility] [place] [facility] [address] [id number] [place] [address] 30 Sep, 2013 [facility] [place] [facility] [address] [id number] [place] [address] 30 Sep, 2013 [facility] [place] [facility] [address] [id number] [place] [address] 30 Feb, 2013 [facility] [place] [facility] [address] [id number] [place] [address] 30 Sep, 2013 [facility] [place] [facility] [address] [id number] [place] [address] 26 Sep, 2013 [facility] [place] [facility] [address] [id number] [place] [address] 26 Feb, 2013 [facility] [place] [facility] [address] [id number] [place] [address] 09 Feb, 2013 [facility] [place] [facility] [address] [id number] [place] [address] 09 Feb, 2013 [facility] [place] [facility] [address] [id number] [place] [address] 03 Feb, 2013 [facility] [place] [facility] [address] [id number] [place] [address] 03 Feb, 2013 [facility] [place] [facility] [address] [id number] [place] [address] Feb, 2013 [facility] [place] [facility] [address] [id number] [place] [address] 03 Feb, 2013 [facility] [place] [facility] [address] [id number] [place] [address] Jan, [facility] [place] [facility] [address] [id number] [place] [address] Jan, [facility] [place] [facility] [address] [id number] [place] [address] 14 Jan, 2014 [facility] [place] [facility] [address] [id number] [place] [address] Jan, [facility] [place] [facility] [address] [id number] [place] [address] Jan, [facility] [place] [facility] [address] [id number] [place] [address] Jan, [facility] [place] [facility] [address] [id number] [place] [address] Jan, [facility] [place] [facility] [address] [id number] [place] [address] Jan, [facility] [place] [facility] [address] [id number] [place] [address] Jan, [facility] [place] [facility] [address] [id number] [place] [address] Jan, [facility] [place] [facility] [address] [id number] [place] [address] Jan, [facility] [place] [facility] [address] [id number] [place] [address] Jan, [facility] [place] [facility] [address] [id number] [place] [address] Jan, [facility] [place] [facility] [address] [id number] [place] [address] Dec, [facility] [place] [facility] [address] [id number] [place] [address] Dec, [facility] [place] [facility] [address] [id number] [place] [address] Dec, [facility] [place] [facility] [address] [id number] [place] [address] Dec, [facility] [place] [facility] [address] [id number] [place] [address] Dec, [facility] [place] [facility] [address] [id number] [place] [address] Dec, [facility] [place] [facility] [address] [id number] [place] [address] Dec, 2013 [facility] [place] [facility] [address] [id number] [place] [address] Dec, 2013 [facility] [place] [facility] [address] [id number] [place] [address] Dec, 2013 [facility] [place] [facility] [address] [id number] [place] [address] Dec, 2013 [facility] [place] [facility] [address] [id number] [place] [address] Dec, 2013 [facility] [place] [facility] [address] [id number] [place] [address] Dec, [facility] [place] [facility] [address] [id number] [place] [address] Dec, [facility] [place] [facility] [address] [id number] [place] [address] Dec, [facility] [place] [facility] [address] [id number] [place] [address] Dec, [facility] [place] [facility] [address] [id number] [place] [address] Dec, [facility] [place] [facility] [address] [id number] [place] [address] Dec, [facility] [place] [facility] [address] [id number] [place] [address] Dec, [facility] [place] [facility] [address] [id number] [place] [address] Nov, [facility] [place] [facility] [address] [id number] [place] [address] Nov, [facility] [place] [facility] [address] [id number] [place] [address] Nov, [facility] [place] [facility] [address] [id number] [place] [address] Nov, [facility] [place] [facility] [address] [id number] [place] [address] Nov, [facility] [place] [facility] [address] [id number] [place] [address] Nov, [facility] [place] [facility] [address] [id number] [place] [address] Nov, [facility] [place] [facility] [address] [id number] [place] [address] Nov, [facility] [place] [facility] [address] [id number] [place] [address] Nov, [facility] [place] [facility] [address] [id number] [place] [address] Nov, [facility] [place] [facility] [address] [id number] [place] [address] Nov, [facility] [place] [facility] [address] [id number] [place] [address] Nov, [facility] [place] [facility] [address] [id number] [place] [address] Nov, [facility] [place] [facility] [address] [id number] [place] [address] Nov, [facility] [place] [facility] [address] [id number] [place] [address] Nov, [facility] [place] [facility] [address] [id number] [place] [address] Nov, [facility] [place] [facility] [address] [id number] [place] [address] Nov, [facility] [place] [facility] [address] [id number] [place] [address] Nov, [facility] [place] [facility] [address] [id number] [place] [address] Nov, [facility] [place] [facility] [address] [id number] [place] [address] Nov, [facility] [place] [facility] [address] [id number] [place] [address] October, [facility] [place] [facility] [address] [id number] [place] [address] October, [facility] [place] [facility] [address] [id number] [place] [address] October, [facility] [place] [facility] [address] [id number] [place] [address] October, [facility] [place] [facility] [address] [id number] [place] [address] Sep, [facility] [place] [facility] [address] [id number] [place] [address] Sep, [facility] [place] [facility] [address] [id number] [place] [address] Sep, [facility] [place] [facility] [address] [id number] [place] [address] Sep, [facility] [place] [facility] [address] [id number] [place] [address] Sep, [facility] [place] [facility] [address] [id number] [place] [address] Sep, [facility] [place] [facility] [address] [id number] [place] [address] Sep, [facility] [place] [facility] [address] [id number] [place] [address] Sep, [facility] [place] [facility] [address] [id number] [place] [address] Sep, [facility] [place] [facility] [address] [id number] [place] [address] Aug, [facility] [place] [facility] [address] [id number] [place] [address] Aug, [facility] [place] [facility] [address] [id number] [place] [address] Aug, [facility] [address] [id number] [place] [address] Aug, [facility] [place] [facility] [address] [id number] [place] [address] Aug, [facility] [place] [facility] [address] [id number] [place] [address] Aug, [facility] [place] [facility] [address] [id number] [place] [address] Aug, [facility] [place] [facility] [address] [id number] [place] [address] Aug, [facility] [place] [facility] [address] [id number] [place] [address] Jul, [facility] [place] [facility] [address] [id number] [place] [address] Jul, [facility] [place] [facility] [address] [id number] [place] [address] Jun, [facility] [place] [facility] [address] [id number] [place] [address] Jun, [facility] [place] [facility] [address] [id number] [place] [address] Jun, [facility] [place] [facility] [address] [id number] [place] [address] Jun, [facility] [place] [facility] [address] [id number] [place] [address] Jun, [facility] [place] [facility] [address] [id number] [place] [address] Jun, [facility] [place] [facility] [address] [id number] [place] [address] Jun, [facility] [place] [facility] [address] [id number] [place] [address] 15 Jun, 2013 [facility] [address] [id number] [place] [address] 15 Jun, 2013 [facility] [place] [facility] [address] [id number] [place] [address] 14 Jun, 2013 [facility] [place] [facility] [address] [id number] [place] [address] Jun, [facility] [place] [facility] [address] [id number] [place] [address] Jun, [facility] [place] [facility] [address] [id number] [place] [address] May, [facility] [place] [facility] [address] [id number] [place] [address] May, [facility] [place] [facility] [address] [id number] [place] [address] May, [facility] [place] [facility] [address] [id number] [place] [address] 31 May, 2013 [facility] [place] [facility] [address] [id number] [place] [address] 31 May, 2013 [facility] [place] [facility] [address] [id number] [place] [address] 31 May, 2013 [facility] [place] [facility] [address] [id number] [place] [address] 26 May, 2013 [facility] [place] [facility] [address] [id number], [place] [address] 23 May, 2013 [facility] [place] [facility] [address] [id number] [place] [address] 23 May, 2013 [facility] [place] [facility] [address] [id number] [place] [address] 16 May, 2013 [facility] [place] [facility] [address] [id number] [place] [address] 16 May, 2013 [facility] [place] [facility] [address] [id number] [place] [address] May, [facility] [address] [id number] [place] [address] May, [facility] [place] [facility] [address] [id number] [place] [address] Apr, [facility] [place] [facility] [address] [id number] [place] [address] Apr, [facility] [place] [facility] [address] [id number] [place] [address] Mar, [facility] [place] [facility] [address] [id number] [place] [address] Mar, [facility] [place] [facility] [address] [id number] [place] [address] Feb, [facility] [place] [facility] [address] [id number] [place] [address] Feb, [facility] [place] [facility] [address] [id number] [place] [address] Feb, [facility] [place] [facility] [address] [id number] [place] [address] Feb, [facility] [place] [facility] [address] [id number] [place] [address] Jan, [facility] [place] [facility] [address] [id number] [place] [address] Jan, [facility] [place] [facility] [address] [id number] [place] [address] Jan, [facility] [place] [facility] [address] [id number] [place] [address] Jan, [facility] [place] [facility] [address] [id number] [place] [address] Jan, [facility] [place] [facility] [address] [id number] [place] [address] Jan, [facility] [place] [facility] [address] [id number] [place] [address] Dec, [facility] [address] [id number] [place] [address] Dec, [facility] [place] [facility] [address] [id number] [place] [address] Dec, [facility] [address] [id number] [place] [address] Dec, [facility] [address] [id number] [place] [address] Nov, [facility] [place] [facility] [address] [id number] [place] [address] October, [facility] [address] [id number] [place] [address] October, [facility] [address] [id number] [place] [address] October, [facility] [address] [id number] [place] [address] Sep, [facility] [address] [id number] [place] [address] Sep, [facility] [place] [facility] [address] [id number] [place] [address] Jun, [facility] [place] [facility] [address] [id number] [place] [address] Jun, [facility] [place] [facility] [address] [id number] [place] [address] Jun, [facility] [place] [facility] [address] [id number] [place] [address] Apr, [facility] [place] [facility] [address] [id number] [place] [address] Apr, [facility] [place] [facility] [address] [id number] [place] [address] Apr, [facility] [place] [facility] [address] [id number] [place] [address] Apr, [facility] [place] [facility] [address] [id number] [place] [address] Mar, [facility] [place] [facility] [address] [id number] [place] [address] Mar, [facility] [place] [facility] [address] [id number] [place] [address] Mar, [facility] [place] [facility] [address] [id number] [place] [address] Mar, [facility] [place] [facility] [address] [id number] [place] [address] Feb, [facility] [place] [facility] [address] [id number] [place] [address] Feb, [facility] [place] [facility] [address] [id number] [place] [address] Feb, [facility] [place] [facility] [address] [id number] [place] [address] Jan, [facility] [place] [facility] [address] [id number] [place] [address] Jan, [facility] [place] [facility] [address] [id number] [place] [address] Jan, [facility] [place] [facility] [address] [id number] [place] [address] Jan, [facility] [place] [facility] [address] [id number] [place] [address] Dec, [facility] [place] [facility] [address] [facility] [id number] [place] [address] Dec, [facility] [place] [facility] [address] [facility] [id number] [place] [address] Nov, [facility] [place] [facility] [address] [id number] [place] [address] Nov, [facility] [address] [id number] [place] [address] October, [facility] [address] [id number] [place] [address] October, [facility] [address] [id number] [place] [address] October, [facility] [address] [id number] [place] [address] Sep, [facility] [address] [id number] [place] [address] Sep, [facility] [address] [id number] [place] [address] Sep, [facility] [address] [id number] [place] [address] Aug, [facility] [address] [id number] [place] [address] Aug, [facility] [address] [id number] [place] [address] Aug, [facility] [address] [facility] [id number] [place] [address] 15 Aug, 2011 [facility] [address] [id number] [place] [address] Aug, [facility] [address] [id number] [place] [address] 23 Jul, 2011 [facility] [address] [id number] [place] [address] 16 Jul, 2011 [facility] [address] [id number] [place] [address] 13 Jul, 2011 [facility] [address] [id number] [place] [address] Jul, [facility] [place] [facility] [address] [id number] [place] [address] Jul, [facility] [place] [facility] [address] [id number] [place] [address] Jul, [facility] [place] [facility] [address] [id number] [place] [address] Jul, [facility] [place] [facility] [address] [id number] [place] [address] Jul, [facility] [place] [facility] [address] [id number] [place] [address] Jun, [facility] [place] [facility] [address] [id number] [place] [address] Jun, [facility] [place] [facility] [address] [id number] [place] [address] May, [facility] [place] [facility] [address] [id number] [place] [address] May, [facility] [place] [facility] [address] [id number] [place] [address] May, [facility] [place] [facility] [address] [facility] [id number] [place] [address] May, [facility] [place] [facility] [address] [facility] [id number] [address] Apr, [facility] [place] [facility] [address] [id number] [place] [address] Apr, [facility] [place] [facility] [address] [id number] [place] [address] Apr, [facility] [place] [facility] [address] [facility] [id number] [place] [address] Mar, [facility] [place] [facility] [address] [facility] [id number] [place] [address] Mar, [facility] [place] [facility] [address] [id number] [place] [address] 18 Mar, 2011 [facility] [address] [id number] [place] [address] 2011 [facility] [address] [id number] [place] [address] Dec, [facility] [address] [id number] [place] [address] October, [facility] [address] [id number] [place] [address] 28 May, 2010 [facility] [address] [id number] [place] [address] 13 May, 2010 [facility] [address] [id number] [place] [address] 13 May, 2010 [facility] [address] [facility] [id number] [place] [address] 06 May, 2010 [facility] [address] [id number] [place] [address] 26 Mar, 2010 [facility] [address] [facility] [id number] [place] [address] 25 Mar, 2010 [facility] [address] [facility] [id number] [place] [address] 31 May, 2009 [facility] [address] [id number] [place] [address] 30 May, 2009 [facility] [address] [id number] [place] [address] 08 May, 2009 [facility] [address] [id number] [place] [address] 08 May, 2009 [facility] [address] [facility] [id number] [place] [address] Apr, [facility] [address] [facility] [id number] [place] [address] Apr, [facility] [address] [facility] [id number] [place] [address] October, IMMUNIZATIONS No Known Immunizations SOCIAL HISTORY Never Assessed REASON FOR VISIT EMR-[facility] PLAN OF CARE VITAL SIGNS MEDICATIONS Unknown [...]
--- OUTSIDE RECORDS SUMMARY | 2019-01-13 10:26 | XMS REPORT ---
Author Author Migration, Doctor Organization 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 Name Role Phone Migration, Doctor Unavailable Unavailable PROBLEMS Type Condition ICD9-CM Code AFG83-FV Code Onset Dates Condition Status SNOMED Code Problem History of illicit drug use Z87.898 Active 942229088 Problem MRSA (methicillin resistant staph aureus) culture positive Z22.322 Active 664715243 Problem Snoring R06.83 Active 02516641 Problem Neuropathy G62.9 Active 257910987 Problem Essential hypertension I10 Active 49740552 Problem Fatigue R53.83 Active 77189529 Problem Panic disorder without agoraphobia F41.0 Active 80711702 Problem Upper respiratory tract infection, unspecified type J06.9 Active 76210302 Problem Varicose veins of both lower extremities I83.93 Active 01204414 Problem Other chronic pain G89.29 Active 92866015 Problem Mild persistent asthma without complication J45.30 Active 234954165 Problem On home oxygen therapy Z99.81 Active 363775458038 Problem Mild chronic obstructive pulmonary disease J44.9 Active 482667263 Problem Major depressive disorder, recurrent episode, moderate F33.1 Active 656830754 Problem 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 Active 59045970 Problem COPD exacerbation J44.1 Active 051469937 Problem Mood disorder F39 Active 28316984 Problem Dysthymic disorder F34.1 Active 45248517 Problem Psychotic disorder F29 Active 08898402 Problem Impaired circulation I99.9 Active 51070451 Problem Agoraphobia F40.00 Active 19716647 Problem COPD (chronic obstructive pulmonary disease) with chronic bronchitis J44.9 Active 921019772 Problem Exertional asthma J45.990 Active 84430190 Problem 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 843669023 Problem Arthritis M19.90 Active 1135115 ALLERGIES No Information ENCOUNTERS Encounter Location Date Diagnosis [facility] [address] [facility]NOTE 3[facility] [id number] [address] Nov, [place] [id number] [place] [address] Sep, [place] [address] [place] [id number] [place] [address] Sep, [place] [address] [place] [id number] [place] [address] Sep, Panic disorder without agoraphobia F41.0 [place] [address] [place] [id number] [place] [address] Aug, Panic disorder without agoraphobia F41.0 ; Major depressive disorder, recurrent episode, moderate F33.1 ; 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 ; Psychotic disorder F29 ; Tardive dyskinesia G24.01 and Morbid obesity E66.01 [place] [address] [place] [id number] [place] [address] Aug, Dysthymic disorder F34.1 and Psychotic disorder F29 [place] [address] [place] [id number] [place] [address] Aug, Encounter for Medicare annual wellness exam Z00.00 ; Morbid obesity E66.01 and 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 [place] [id number] [place] [address] Aug, Dysthymic disorder F34.1 and Psychotic disorder F29 [place] [address] [place] [id number] [place] [address] Aug, Neuropathy G62.9 ; Onychomycosis B35.1 and Xerosis of skin L85.3 [place] [address] [place] [id number] [place] [address] Jul, [place] [address] [place] [id number] [place] [address] Jul, Mood disorder F39 ; Wheezing R06.2 ; Choking, initial encounter T17.308A and Coughing R05 [place] [address] [place] [id number] [place] [address] 07 Jul, 2018 Low back pain M54.5 [facility] [address] [place] [id number] [place] [address] Jun, Flu-like symptoms R68.89 ; BMI 45.0-49.9, adult Z68.42 ; COPD exacerbation J44.1 and Acute bronchitis J20.9 [place] [address] [address] Jun, [place] [address] [address] May, [place] [address] [address] May, Onychomycosis B35.1 and 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 [place] [address] [address] May, Low back pain M54.5 and Edema leg R60.[address] [address] May, BMI 45.0-49.9, adult Z68.42 ; Well woman exam with routine gynecological exam Z01.419 and Breast cancer screening Z12.[address] [address] Apr, Arthritis M19.90 [place] [address] [place] [id number] [place] [address] 16 Apr, 2018 Arthritis M19.90 and Otalgia of both ears H92.[address] [address] Feb, [place] [address] [address] Feb, Low back pain M54.5 ; Other chronic pain G89.29 ; Exertional asthma J45.990 and Encounter for immunization Z23 [facility] [address] [address] Feb, Skin fissures R23.4 ; Neuropathy G62.9 and Onychomycosis B35.1 [facility] [address] [address] 05 Feb, 2018 Dysthymic disorder F34.1 [place] [address] [address] 04 Feb, 2018 [place] [address] [address] Jan, [place] [address] [address] Jan, Abrasion of right elbow, initial encounter S50.311A ; Abrasion, right knee, initial encounter S80.211A and Sprain of other ligament of right ankle, initial encounter S93.491A [place] [address] [address] Jan, [facility] [address] [address] Jan, Injury of left ankle, initial encounter S99.912A ; Fall down stairs, initial encounter W10.8XXA and BMI 45.0-49.9, adult Z68.42 [place] [address] [place] [id number] [place] [address] Jan, COPD exacerbation J44.1 [place] [address] [address] Jan, Dysfunction of both eustachian 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 [place] [address] [address] Jan, Bronchitis J40 and Acute suppurative otitis media of left ear without spontaneous rupture of tympanic membrane, recurrence not specified H66.002 [place] [address] [place] [id number] [place] [address] Jan, [place] [address] [place] [id number] [place] [address] Jan, Bronchitis J40 and BMI 40.0-44.9, adult Z68.41 [place] [address] [address] Jan, [place] [address] [place] [id number] [place] [address] Dec, Gastric pain R10.9 [place] [address] [address] Dec, [place] [address] [place] [id number] [place] [address] Dec, History of illicit drug use Z87.898 ; Neuropathy G62.9 ; COPD (chronic obstructive pulmonary disease) with chronic bronchitis J44.9 and Acute pain of right knee M25.561 [place] [address] [place] [id number] [place] [address] Nov, [place] [address] [place] [id number] [place] [address] Nov, Onychomycosis B35.1 and Contusion of left foot, subsequent encounter S90.32XD [place] [address] [place] [id number] [place] [address] Nov, COPD exacerbation J44.1 [place] [address] [place] [id number] [place] [address] Sep, [place] [address] [place] [id number] [place] [address] Sep, Dysthymic disorder F34.1 ; Tobacco abuse Z72.0 ; Pain in right knee M25.561 ; Pain in left knee M25.562 ; Other chronic pain G89.29 and BMI 40.0- 44.9, adult Z68.41 [place] [address] [place] [id number] [place] [address] 22 Aug, 2017 Major depressive disorder, recurrent episode, moderate F33.1 and 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 [place] [address] [place] [id number] [place] [address] 14 Aug, 2017 Dysthymic disorder F34.1 ; Non-pressure chronic ulcer of left thigh, unspecified ulcer stage L97.129 ; Tobacco abuse Z72.0 ; Mild chronic obstructive pulmonary disease J44.9 and Forgetfulness R68.89 [place] [address] [address] 09 Aug, 2017 Onychomycosis B35.1 ; Fissure in skin of foot R23.4 and Foot callus L84 [facility] [address] [address] 26 Jul, 2017 Right medial knee pain M25.561 ; Upper respiratory tract infection, unspecified type J06.9 and BMI 40.0-44.9, adult Z68.41 [facility] [address] [address] 08 Jul, 2017 Nausea and vomiting, intractability of vomiting not specified, unspecified vomiting type R11.2 ; Left ear pain H92.02 and Gastric pain R10.[address] [address] Apr, Encounter for immunization Z23 [place] [address] [address] Apr, Onychomycosis B35.1 ; Xerosis of skin L85.3 ; Neuropathy G62.9 and 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 [place] [address] [place] [id number] [place] [address] Jan, Onychomycosis B35.1 and Neuropathy G62.[address] [place] [address] Dec, [facility] [address] [address] Dec, [facility] [address] [address] Nov, [facility] [address] [address] Aug, [facility] [address] [address] Aug, [facility] [address] [address] Jul, [facility] [address] [address] Jul, [facility] [address] [address] Jul, Decubitus ulcer of left thigh, stage 2 L89.892 [facility] [address] [address] 17 Jul, 2016 Decubitus ulcer of left thigh, stage 2 L89.892 [facility] [address] [address] 17 Jul, 2016 [facility] [address] [place] [id number] [address] 15 Jul, 2016 Decubitus ulcer of left thigh, stage 2 L89.892 [facility] [address] [place] [id number] [address] 14 Jul, 2016 [facility] [address] [address] 13 Jul, 2016 Cellulitis of other specified site L03.818 ; Illicit drug use F19.90 and Decubitus ulcer of left thigh, stage 2 L89.892 [facility] [address] [place] [id number] [place] [address] 08 Jul, 2016 [facility] [address] [place] [id number] [place] [address] Jul, Cellulitis of right breast N61.0 [facility] [address] [place] [id number] [place] [address] Jun, [facility] [address] [address] Jun, [facility] [address] [place] [id number] [place] [address] Jun, Wheezing R06.2 and Arthralgia, unspecified joint M25.50 [place] [address] [place] [id number] [place] [address] May, [place] [address] [address] May, [facility] [address] [place] [id number] [place] [address] May, [place] [address] [place] [id number] [place] [address] May, Shortness of breath R06.02 [place] [address] [place] [id number] [place] [address] May, Onychomycosis B35.1 and Fissure in skin of foot R23.4 [place] [address] [place] [id number] [place] [address] Apr, [facility] [address] [place] [id number] [place] [address] 18 Apr, 2016 Dizziness R42 [place] [address] [place] [id number] [place] [address] 14 Apr, 2016 Shortness of breath R06.02 ; Essential hypertension I10 ; Dizziness R42 and On home oxygen therapy Z99.81 [place] [address] [address] Apr, [facility] [address] [address] Apr, [facility] [address] [place] [address] Apr, [facility] [address] [place] [id number] [place] [address] Apr, [facility] [address] [place] [id number] [place] [address], [place] [address] Apr, [facility] [address] [place] [id number] [place] [address], [place] [address] Apr, [facility] [address] [place] [id number] [place] [address] Apr, [facility] [address] [place] [id number] [place] [address] Mar, Mild chronic obstructive pulmonary disease J44.9 [facility] [address] [address] Mar, [facility] [id number] [place] [address] Mar, Epigastric pain R10.13 ; Low back pain M54.5 ; Other chronic pain G89.29 and Breast cancer screening Z12.39 [facility] [address] [address] Mar, [facility] [address] [address] Mar, [facility] [address] [address] Feb, [facility] [address] [address] Feb, [facility] [id number] [place] [address] Feb, Fissure in skin of foot R23.4 and Onychomycosis B35.1 [place] [address] [place] [id number] [place] [address] Jan, Agoraphobia F40.00 [place] [address] [place] [id number] [place] [address] Dec, Agoraphobia F40.00 [place] [address] [address] Dec, Mild persistent asthma without complication J45.30 ; Dysthymic disorder F34.1 and Upper respiratory tract infection, unspecified type J06.9 [place] [address] [place] [id number] [place] [address] Nov, Agoraphobia F40.00 [place] [address] [place] [id number] [place] [address] October, Agoraphobia F40.00 [place] [address] [place] [id number] [place] [address] Sep, Panic disorder without agoraphobia F41.0 ; Agoraphobia F40.00 and Dysthymic disorder F34.1 [place] [address] [place] [id number] [place] [address] Sep, Panic attacks F41.0 [place] [address] [place] [id number] [place] [address] Sep, [place] [address] [place] [id number] [place] [address] Sep, Panic disorder without agoraphobia F41.0 ; Varicose veins of both lower extremities I83.93 and Fatigue R53.83 [place] [address] [place] [id number] [place] [address] 14 Sep, 2015 Fatigue R53.83 [place] [address] [place] [id number] [place] [address] Sep, [place] [address] [address] Aug, [place] [id number] [place] [address] Aug, [place] [address] [place] [id number] [place] [address] Aug, 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 [place] [address] [place] [id number] [place] [address] Aug, Panic disorder without agoraphobia F41.0 ; Agoraphobia F40.00 and Dysthymic disorder F34.1 [place] [address] [address] Aug, Shortness of breath R06.02 ; Panic attacks F41.0 ; COPD (chronic obstructive pulmonary disease) J44.9 ; Tobacco abuse Z72.0 ; Family history of diabetes mellitus Z83.3 and Weight gain R63.5 [place] [address] [place] [address] Aug, [place] [address] [address] Jul, [place] [id number] [place] [address] Jun, Onychomycosis B35.1 ; Neuropathy G62.9 and Impaired circulation I99.9 [place] [address] [address] 09 Mar, 2015 Fissure in skin of foot R23.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 [place] [address] [address] 18 Feb, 2015 Family history of coronary arteriosclerosis V17.3 [place] [address] [address] 15 Feb, 2015 Allergic rhinitis due to pollen 477.0 ; Unspecified breast screening V76.10 ; Anxiety 300.00 and Family history of coronary arteriosclerosis V17.3 [facility] [address], [place] [address] Jan, [facility] [address] [address] Dec, [facility] [address], [place] [address] Dec, Onychomycosis 110.1 and Skin fissures 709.8 [facility] [address], [place] [address] Sep, [facility] [address], [place] [address] Sep, [facility] [address], [place] [address] Aug, [facility] [address], [place] [address] Aug, [facility] [address], [place] [address] Jul, [facility] [address] [address] Jul, [facility] [address], [place] [address] Jun, [facility] [address], [place] [address] Jun, [facility] [address], [place] [address] Jun, [facility] [address] [address] Jun, [facility] [address] [place] [id number] [place] [address] Jun, [facility] [address] [id number] [place] [address] May, [facility] [place] [facility] [address] [id number] [place] [address] May, [facility] [place] [facility] [address] [id number] [place] [address] May, [facility] [place] [facility] [address] [id number] [place] [address] May, [facility] [place] [facility] [address] [id number] [place] [address] May, [facility] [place] [facility] [address] [id number] [place] [address] May, [facility] [place] [facility] [address] [id number] [place] [address] May, [facility] [address] [id number] [place] [address] May, [facility] [place] [facility] [address] [id number] [place] [address] Apr, [facility] [place] [facility] [address] [id number] [place] [address] Apr, [facility] [place] [facility] [address] [id number] [place] [address] Apr, [facility] [place] [facility] [address] [id number] [place] [address] Apr, [facility] [place] [facility] [address] [id number] [place] [address] Apr, [facility] [place] [facility] [address] [id number] [place] [address] Apr, [facility] [place] [facility] [address] [id number] [place] [address] Apr, [facility] [place] [facility] [address] [id number] [place] [address] Apr, [facility] [place] [facility] [address] [id number] [place] [address] Apr, [facility] [place] [facility] [address] [id number] [place] [address] Apr, [facility] [place] [facility] [address] [id number] [place] [address] Mar, [facility] [place] [facility] [address] [id number] [place] [address] Mar, [facility] [place] [facility] [address] [id number] [place] [address] Mar, [facility] [place] [facility] [address] [id number] [place] [address] Mar, [facility] [place] [facility] [address] [id number] [place] [address] Mar, [facility] [place] [facility] [address] [id number] [place] [address] Mar, [facility] [place] [facility] [address] [id number] [place] [address] Mar, [facility] [place] [facility] [address] [id number] [place] [address] Mar, [facility] [place] [facility] [address] [id number] [address] Mar, [facility] [place] [facility] [address] [id number] [place] [address] Mar, [facility] [place] [facility] [address] [id number] [place] [address] Mar, [facility] [place] [facility] [address] [id number] [place] [address] Mar, [facility] [place] [facility] [address] [id number] [place] [address] 22 Mar, 2013 [facility] [place] [facility] [address] [id number] [place] [address] 22 Mar, 2013 [facility] [place] [facility] [address] [id number] [place] [address] 22 Mar, 2013 [facility] [place] [facility] [address] [id number] [place] [address] 20 Mar, 2013 [facility] [place] [facility] [address] [id number] [place] [address] 20 Mar, 2013 [facility] [place] [facility] [address] [id number] [place] [address] 16 Mar, 2013 [facility] [place] [facility] [address] [id number] [place] [address] 16 Mar, 2013 [facility] [place] [facility] [address] [id number] [place] [address] 15 Mar, 2013 [facility] [place] [facility] [address] [id number] [place] [address] 14 Mar, 2013 [facility] [place] [facility] [address] [id number] [place] [address] 14 Mar, 2013 [facility] [place] [facility] [address] [id number] [place] [address] 14 Mar, 2013 [facility] [place] [facility] [address] [id number] [place] [address] 14 Mar, 2013 [facility] [place] [facility] [address] [id number] [address] 09 Mar, 2013 [facility] [place] [facility] [address] [id number] [place] [address] 09 Mar, 2013 [facility] [place] [facility] [address] [id number] [address] 09 Mar, 2013 [facility] [place] [facility] [address] [id number], [place] [address] 09 Mar, 2013 [facility] [place] [facility] [address] [id number] [place] [address] 30 Sep, 2013 [facility] [place] [facility] [address] [id number] [place] [address] 30 Sep, 2013 [facility] [place] [facility] [address] [id number] [place] [address] 30 Feb, 2013 [facility] [place] [facility] [address] [id number] [place] [address] 30 Sep, 2013 [facility] [place] [facility] [address] [id number] [place] [address] 26 Sep, 2013 [facility] [place] [facility] [address] [id number] [place] [address] 26 Feb, 2013 [facility] [place] [facility] [address] [id number] [place] [address] 09 Feb, 2013 [facility] [place] [facility] [address] [id number] [place] [address] 09 Feb, 2013 [facility] [place] [facility] [address] [id number] [place] [address] 03 Feb, 2013 [facility] [place] [facility] [address] [id number] [place] [address] 03 Feb, 2013 [facility] [place] [facility] [address] [id number] [place] [address] Feb, 2013 [facility] [place] [facility] [address] [id number] [place] [address] 03 Feb, 2013 [facility] [place] [facility] [address] [id number] [place] [address] Jan, [facility] [place] [facility] [address] [id number] [place] [address] Jan, [facility] [place] [facility] [address] [id number] [place] [address] 14 Jan, 2014 [facility] [place] [facility] [address] [id number] [place] [address] Jan, [facility] [place] [facility] [address] [id number] [place] [address] Jan, [facility] [place] [facility] [address] [id number] [place] [address] Jan, [facility] [place] [facility] [address] [id number] [place] [address] Jan, [facility] [place] [facility] [address] [id number] [place] [address] Jan, [facility] [place] [facility] [address] [id number] [place] [address] Jan, [facility] [place] [facility] [address] [id number] [place] [address] Jan, [facility] [place] [facility] [address] [id number] [place] [address] Jan, [facility] [place] [facility] [address] [id number] [place] [address] Jan, [facility] [place] [facility] [address] [id number] [place] [address] Jan, [facility] [place] [facility] [address] [id number] [place] [address] Dec, [facility] [place] [facility] [address] [id number] [place] [address] Dec, [facility] [place] [facility] [address] [id number] [place] [address] Dec, [facility] [place] [facility] [address] [id number] [place] [address] Dec, [facility] [place] [facility] [address] [id number] [place] [address] Dec, [facility] [place] [facility] [address] [address] [id number] [place] [address] Dec, [facility] [place] [facility] [address] [id number] [place] [address] Dec, 2013 [facility] [place] [facility] [address] [id number] [place] [address] Dec, 2013 [facility] [place] [facility] [address] [id number] [place] [address] Dec, 2013 [facility] [place] [facility] [address] [id number] [place] [address] Dec, 2013 [facility] [place] [facility] [address] [id number] [place] [address] Dec, 2013 [facility] [place] [facility] [address] [id number] [place] [address] Dec, [facility] [place] [facility] [address] [id number] [place] [address] Dec, [facility] [place] [facility] [address] [id number] [place] [address] Dec, [facility] [place] [facility] [address] [id number] [place] [address] Dec, [facility] [place] [facility] [address] [id number] [place] [address] Dec, [facility] [place] [facility] [address] [id number] [place] [address] Dec, [facility] [place] [facility] [address] [id number] [place] [address] Dec, [facility] [place] [facility] [address] [id number] [place] [address] Nov, [facility] [place] [facility] [address] [id number] [place] [address] Nov, [facility] [place] [facility] [address] [id number] [place] [address] Nov, [facility] [place] [facility] [address] [id number] [place] [address] Nov, [facility] [place] [facility] [address] [id number] [place] [address] Nov, [facility] [place] [facility] [address] [id number] [place] [address] Nov, [facility] [place] [facility] [address] [id number] [place] [address] Nov, [facility] [place] [facility] [address] [id number] [place] [address] Nov, [facility] [place] [facility] [address] [id number] [place] [address] Nov, [facility] [place] [facility] [address] [id number] [place] [address] Nov, [facility] [place] [facility] [address] [id number] [place] [address] Nov, [facility] [place] [facility] [address] [id number] [place] [address] Nov, [facility] [place] [facility] [address] [id number] [place] [address] Nov, [facility] [place] [facility] [address] [id number] [place] [address] Nov, [facility] [place] [facility] [address] [id number] [place] [address] Nov, [facility] [place] [facility] [address] [id number] [place] [address] Nov, [facility] [place] [facility] [address] [id number] [place] [address] Nov, [facility] [place] [facility] [address] [id number] [place] [address] Nov, [facility] [place] [facility] [address] [id number] [place] [address] Nov, [facility] [place] [facility] [address] [id number] [place] [address] Nov, [facility] [place] [facility] [address] [id number] [place] [address] October, [facility] [place] [facility] [address] [id number] [place] [address] October, [facility] [place] [facility] [address] [id number] [place] [address] October, [facility] [place] [facility] [address] [id number] [place] [address] October, [facility] [place] [facility] [address] [id number] [place] [address] Sep, [facility] [place] [facility] [address] [id number] [place] [address] Sep, [facility] [place] [facility] [address] [id number] [place] [address] Sep, [facility] [place] [facility] [address] [id number] [place] [address] Sep, [facility] [place] [facility] [address] [id number] [place] [address] Sep, [facility] [place] [facility] [address] [id number] [place] [address] Sep, [facility] [place] [facility] [address] [id number] [place] [address] Sep, [facility] [place] [facility] [address] [id number] [place] [address] Sep, [facility] [place] [facility] [address] [id number] [place] [address] Sep, [facility] [place] [facility] [address] [id number] [place] [address] Aug, [facility] [place] [facility] [address] [id number] [place] [address] Aug, [facility] [place] [facility] [address] [id number] [place] [address] Aug, [facility] [address] [id number] [place] [address] Aug, [facility] [place] [facility] [address] [id number] [place] [address] Aug, [facility] [place] [facility] [address] [id number] [place] [address] Aug, [facility] [place] [facility] [address] [id number] [place] [address] Aug, [facility] [place] [facility] [address] [id number] [place] [address] Aug, [facility] [place] [facility] [address] [id number] [place] [address] Jul, [facility] [place] [facility] [address] [id number] [place] [address] Jul, [facility] [place] [facility] [address] [id number] [place] [address] Jun, [facility] [place] [facility] [address] [id number] [place] [address] Jun, [facility] [place] [facility] [address] [id number] [place] [address] Jun, [facility] [place] [facility] [address] [id number] [place] [address] Jun, [facility] [place] [facility] [address] [id number] [place] [address] Jun, [facility] [place] [facility] [address] [id number] [place] [address] Jun, [facility] [place] [facility] [address] [id number] [place] [address] Jun, [facility] [place] [facility] [address] [id number] [place] [address] 15 Jun, 2013 [facility] [address] [id number] [place] [address] 15 Jun, 2013 [facility] [place] [facility] [address] [id number] [place] [address] 14 Jun, 2013 [facility] [place] [facility] [address] [id number] [place] [address] Jun, [facility] [place] [facility] [address] [id number] [place] [address] Jun, [facility] [place] [facility] [address] [id number] [place] [address] May, [facility] [place] [facility] [address] [id number] [place] [address] May, [facility] [place] [facility] [address] [id number] [place] [address] May, [facility] [place] [facility] [address] [id number] [place] [address] 31 May, 2013 [facility] [place] [facility] [address] [id number] [place] [address] 31 May, 2013 [facility] [place] [facility] [address] [id number] [place] [address] 31 May, 2013 [facility] [place] [facility] [address] [id number] [place] [address] 26 May, 2013 [facility] [place] [facility] [address] [id number] [address] 23 May, 2013 [facility] [place] [facility] [address] [id number] [place] [address] 23 May, 2013 [facility] [place] [facility] [address] [id number] [place] [address] 16 May, 2013 [facility] [place] [facility] [address] [id number] [place] [address] 16 May, 2013 [facility] [place] [facility] [address] [id number] [place] [address] May, [facility] [address] [id number] [place] [address] May, [facility] [place] [facility] [address] [id number] [place] [address] Apr, [facility] [place] [facility] [address] [id number] [place] [address] Apr, [facility] [place] [facility] [address] [id number] [place] [address] Mar, [facility] [place] [facility] [address] [id number] [place] [address] Mar, [facility] [place] [facility] [address] [id number] [place] [address] Feb, [facility] [place] [facility] [address] [id number] [place] [address] Feb, [facility] [place] [facility] [address] [id number] [place] [address] Feb, [facility] [place] [facility] [address] [id number] [place] [address] Feb, [facility] [place] [facility] [address] [id number] [place] [address] Jan, [facility] [place] [facility] [address] [id number] [place] [address] Jan, [facility] [place] [facility] [address] [id number] [place] [address] Jan, [facility] [place] [facility] [address] [id number] [place] [address] Jan, [facility] [place] [facility] [address] [id number] [place] [address] Jan, [facility] [place] [facility] [address] [id number] [place] [address] Jan, [facility] [place] [facility] [address] [id number] [place] [address] Dec, [facility] [address] [id number] [place] [address] Dec, [facility] [place] [facility] [address] [id number] [place] [address] Dec, [facility] [address] [id number] [place] [address] Dec, [facility] [address] [id number] [place] [address] Nov, [facility] [place] [facility] [address] [id number] [place] [address] October, [facility] [address] [id number] [place] [address] October, [facility] [address] [id number] [place] [address] October, [facility] [address] [id number] [place] [address] Sep, [facility] [address] [id number] [place] [address] Sep, [facility] [place] [facility] [address] [id number] [place] [address] Jun, [facility] [place] [facility] [address] [id number] [place] [address] Jun, [facility] [place] [facility] [address] [id number] [place] [address] Jun, [facility] [place] [facility] [address] [id number] [place] [address] Apr, [facility] [place] [facility] [address] [id number] [place] [address] Apr, [facility] [place] [facility] [address] [id number] [place] [address] Apr, [facility] [place] [facility] [address] [id number] [place] [address] Apr, [facility] [place] [facility] [address] [id number] [place] [address] Mar, [facility] [place] [facility] [address] [id number] [place] [address] Mar, [facility] [place] [facility] [address] [id number] [place] [address] Mar, [facility] [place] [facility] [address] [id number] [place] [address] Mar, [facility] [place] [facility] [address] [id number] [place] [address] Feb, [facility] [place] [facility] [address] [id number] [place] [address] Feb, [facility] [place] [facility] [address] [id number] [place] [address] Feb, [facility] [place] [facility] [address] [id number] [place] [address] Jan, [facility] [place] [facility] [address] [id number] [place] [address] Jan, [facility] [place] [facility] [address] [id number] [place] [address] Jan, [facility] [place] [facility] [address] [id number] [place] [address] Jan, [facility] [place] [facility] [address] [id number] [place] [address] Dec, [facility] [place] [facility] [address] [facility] [id number] [place] [address] Dec, [facility] [place] [facility] [address] [facility]] [id number] [place] [address] Nov, [facility] [place] [facility] [address] [id number] [place] [address] Nov, [facility] [address] [id number] [place] [address] October, [facility] [address] [id number] [place] [address] October, [facility] [address] [id number] [place] [address] October, [facility] [address] [id number] [place] [address] Sep, [facility] [address] [id number] [place] [address] Sep, [facility] [address] [id number] [place] [address] Sep, [facility] [address] [id number] [place] [address] Aug, [facility] [address] [id number] [place] [address] Aug, [facility] [address] [id number] [place] [address] Aug, [facility] [address] [facility]] [id number] [place] [address] 15 Aug, 2011 [facility] [address] [id number] [place] [address] Aug, [facility] [address] [id number] [place] [address] 23 Jul, 2011 [facility] [address] [id number] [place] [address] 16 Jul, 2011 [facility] [address] [id number] [place] [address] 13 Jul, 2011 [facility] [address] [id number] [place] [address] Jul, [facility] [place] [facility] [address] [id number] [place] [address] Jul, [facility] [place] [facility] [address] [id number] [place] [address] Jul, [facility] [place] [facility] [address] [id number] [place] [address] Jul, [facility] [place] [facility] [address] [id number] [place] [address] Jul, [facility] [place] [facility] [address] [id number] [place] [address] Jun, [facility] [place] [facility] [address] [id number] [place] [address] Jun, [facility] [place] [facility] [address] [id number] [place] [address] May, [facility] [place] [facility] [address] [id number] [place] [address] May, [facility] [place] [facility] [address] [id number] [place] [address] May, [facility] [place] [facility] [address] [facility]] [id number] [place] [address] May, [facility] [place] [facility] [address] [facility]NOTE 3] [id number] [address] Apr, [facility] [place] [facility] [address] [id number] [place] [address] Apr, [facility] [place] [facility] [address] [id number] [place] [address] Apr, [facility] [place] [facility] [address] [facility]] [id number] [place] [address] Mar, [facility] [place] [facility] [address] [facility]NOTE 3] [id number] [place] [address] Mar, [facility] [place] [facility] [address] [id number] [place] [address] 18 Mar, 2011 [facility] [address] [id number] [place] [address] 2011 [facility] [address] [id number] [place] [address] Dec, [facility] [address] [id number] [place] [address] October, [facility] [address] [id number] [place] [address] 28 May, 2010 [facility] [address] [id number] [place] [address] 13 May, 2010 [facility] [address] [id number] [place] [address] 13 May, 2010 [facility] [address] [facility]] [id number] [place] [address] 06 May, 2010 [facility] [address] [id number] [place] [address] 26 Mar, 2010 [facility] [address] [facility]] [id number] [place] [address] [address], [address] [facility] [address] [facility]NOTE 3] [id number] [place] [address] 31 May, 2009 [facility] [address] [id number] [place] [address] 30 May, 2009 [facility] [address] [id number] [place] [address] 08 May, 2009 [facility] [address] [id number] [place] [address] 08 May, 2009 [facility] [address] [facility] 3] [id number] [place] [address] Apr, [facility] [address] [facility]NOTE 3] [id number] [place] [address] Apr, [facility] [address] [facility]NOTE 3] [id number] [place] [address] October, IMMUNIZATIONS No Known Immunizations SOCIAL HISTORY Never Assessed REASON FOR VISIT [place] [place] VITAL SIGNS MEDICATIONS Unknown [...]
--- OUTSIDE RECORDS SUMMARY | 2019-01-13 10:27 | XMS REPORT ---
Author Author Migration, Doctor Organization [facility] Address Unknown Phone Unavailable Care Team Providers Care All Round Logger Name Role Phone Migration, Doctor Unavailable Unavailable PROBLEMS Type Condition ICD9-CM Code NDF87-RK Code Onset Dates Condition Status SNOMED Code Problem History of illicit drug use Z87.898 Active 104425065 Problem MRSA (methicillin resistant staph aureus) culture positive Z22.322 Active 812682875 Problem Snoring R06.83 Active 84146359 Problem Neuropathy G62.9 Active 111342739 Problem Essential hypertension I10 Active 94806212 Problem Fatigue R53.83 Active 94279802 Problem Panic disorder without agoraphobia F41.0 Active 05375025 Problem Upper respiratory tract infection, unspecified type J06.9 Active 67611709 Problem Varicose veins of both lower extremities I83.93 Active 35553520 Problem Other chronic pain G89.29 Active 06312100 Problem Mild persistent asthma without complication J45.30 Active 448611929 Problem On home oxygen therapy Z99.81 Active 348460793745 Problem Mild chronic obstructive pulmonary disease J44.9 Active 109959334 Problem Major depressive disorder, recurrent episode, moderate F33.1 Active 619906493 Problem 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 Active 79445441 Problem COPD exacerbation J44.1 Active 964128453 Problem Mood disorder F39 Active 69736817 Problem Dysthymic disorder F34.1 Active 20016465 Problem Psychotic disorder F29 Active 52577423 Problem Impaired circulation I99.9 Active 16826000 Problem Agoraphobia F40.00 Active 69143751 Problem COPD (chronic obstructive pulmonary disease) with chronic bronchitis J44.9 Active 314344369 Problem Exertional asthma J45.990 Active 76161877 Problem 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 309122698 Problem Arthritis M19.90 Active 0145813 ALLERGIES No Information ENCOUNTERS Encounter Location Date Diagnosis [facility] [address] [facility] [id number] [address] Nov, [facility] [address] [id number] [place] [address] Sep, [facility] [address] [address] Sep, [facility] [id number] [place] [address] Aug, [facility] [address] [address] Aug, [place] [address] [address] Aug, Dysthymic disorder F34.1 and Psychotic disorder F29 [place] [id number] [place] [address] Aug, Neuropathy G62.9 ; Onychomycosis B35.1 and Xerosis of skin L85.3 [place] [address] [address] Jul, [place] [address] [address] Jul, Mood disorder F39 ; Wheezing R06.2 ; Choking, initial encounter T17.308A and Coughing R05 [place] [id number] [place] [address] Jul, Low back pain M54.5 [facility] [id number] [place] [address] Jun, Flu-like symptoms R68.89 ; BMI 45.0-49.9, adult Z68.42 ; COPD exacerbation J44.1 and Acute bronchitis J20.9 [place] [id number] [place] [address] Jun, [facility] [id number] [place] [address] May, [place] [address] [address] May, Onychomycosis B35.1 and 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 [place] [address] [address] May, Low back pain M54.5 and Edema leg R60.[address] [address] May, BMI 45.0-49.9, adult Z68.42 ; Well woman exam with routine gynecological exam Z01.419 and Breast cancer screening Z12.[address] [address] Apr, Arthritis M19.[address] [address] 16 Apr, 2018 Arthritis M19.90 and Otalgia of both ears H92.03 [place] [address] [address] Feb, [address] [address] Feb, Low back pain M54.5 ; Other chronic pain G89.29 ; Exertional asthma J45.990 and Encounter for immunization Z23 [address] [address] Feb, Skin fissures R23.4 ; Neuropathy G62.9 and Onychomycosis B35.1 [place] [address] [address] 05 Feb, 2018 Dysthymic disorder F34.1 [place] [address] [address] Feb, [place] [address] [address] Jan, [place] [id number] [place] [address] Jan, Abrasion of right elbow, initial encounter S50.311A ; Abrasion, right knee, initial encounter S80.211A and Sprain of other ligament of right ankle, initial encounter S93.491A [facility] [address] [address] Jan, [facility] [address] [address] Jan, Injury of left ankle, initial encounter S99.912A ; Fall down stairs, initial encounter W10.8XXA and BMI 45.0-49.9, adult Z68.42 [place] [address] [address] Jan, COPD exacerbation J44.1 [place] [address] [address] Jan, Dysfunction of both eustachian 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 [place] [address] [address] Jan, Bronchitis J40 and Acute suppurative otitis media of left ear without spontaneous rupture of tympanic membrane, recurrence not specified H66.002 [place] [address] [address] Jan, [place] [address] [address] Jan, Bronchitis J40 and BMI 40.0-44.9, adult Z68.41 [place] [address] [address] Jan, [place] [address] [address] Dec, Gastric pain R10.9 [place] [address] [address] Dec, [place] [id number] [place] [address] Dec, History of illicit drug use Z87.898 ; Neuropathy G62.9 ; COPD (chronic obstructive pulmonary disease) with chronic bronchitis J44.9 and Acute pain of right knee M25.561 [place] [id number] [place] [address] Nov, [place] [address] [address] Nov, Onychomycosis B35.1 and Contusion of left foot, subsequent encounter S90.32XD [address] [address] Nov, COPD exacerbation J44.[address] [address] Sep, [place] [id number] [place] [address] Sep, Dysthymic disorder F34.1 ; Tobacco abuse Z72.0 ; Pain in right knee M25.561 ; Pain in left knee M25.562 ; Other chronic pain G89.29 and BMI 40.0- 44.9, adult Z68.41 [place] [id number] [place] [address] Aug, Major depressive disorder, recurrent episode, moderate F33.1 and 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 [place] [id number] [place] [address] Aug, Dysthymic disorder F34.1 ; Non-pressure chronic ulcer of left thigh, unspecified ulcer stage L97.129 ; Tobacco abuse Z72.0 ; Mild chronic obstructive pulmonary disease J44.9 and Forgetfulness R68.89 [place] [id number] [place] [address] Aug, Onychomycosis B35.1 ; Fissure in skin of foot R23.4 and Foot callus L84 [facility] [id number] [place] [address] Jul, Right medial knee pain M25.561 ; Upper respiratory tract infection, unspecified type J06.9 and BMI 40.0-44.9, adult Z68.41 [facility] [address] [address] Jul, Nausea and vomiting, intractability of vomiting not specified, unspecified vomiting type R11.2 ; Left ear pain H92.02 and Gastric pain R10.9 [place] [address] [address] Apr, Encounter for immunization Z23 [place] [address] [address] Apr, Onychomycosis B35.1 ; Xerosis of skin L85.3 ; Neuropathy G62.9 and 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 [place] [address] [address] Jan, Onychomycosis B35.1 and Neuropathy G62.9 [place] [address] [address] Dec, [place] [address] [address] Dec, [place] [address] [id number] [place] [address] Nov, [place] [address] [address] Aug, [place] [address] [address] Aug, [place] [address] [address] Jul, [facility] [address] [address] Jul, [facility] [address] [place] [address] Jul, Decubitus ulcer of left thigh, stage 2 L89.892 [facility] [address] [place] [address] 17 Jul, 2016 Decubitus ulcer of left thigh, stage 2 L89.892 [facility] [address], [place] [address] Jul, [facility] [id number] [place] [address] 15 Jul, 2016 Decubitus ulcer of left thigh, stage 2 L89.892 [facility] [address] [place] [address] 14 Jul, 2016 [facility] [address], [place] [address] Jul, Cellulitis of other specified site L03.818 ; Illicit drug use F19.90 and Decubitus ulcer of left thigh, stage 2 L89.892 [facility] [address], [place] [address] Jul, [facility] [address] [place] [address] Jul, Cellulitis of right breast N61.0 [facility] [address], [place] [address] Jun, [facility] [id number] [place] [address] Jun, [facility] [address], [place] [address] Jun, Wheezing R06.2 and Arthralgia, unspecified joint M25.50 [facility] [id number] [place] [address] May, [facility] [id number] [place] [address] May, [facility] [id number] [place] [address] May, [facility] [address] [address] 05 May, 2016 Shortness of breath R06.02 [facility] [id number] [place] [address] May, Onychomycosis B35.1 and Fissure in skin of foot R23.4 [facility] [id number] [place] [address] Apr, [facility] [address] [address] 18 Apr, 2016 Dizziness R42 [facility] [id number] [place] [address] 14 Apr, 2016 Shortness of breath R06.02 ; Essential hypertension I10 ; Dizziness R42 and On home oxygen therapy Z99.81 [facility] [id number] [place] [address] Apr, [facility] [id number] [place] [address] Apr, [facility] [id number] [place] [address] Apr, [facility] [address] [address] Apr, [facility] [id number] [place] [address] Apr, [facility] [address] [address] Apr, [facility] [id number] [place] [address] Apr, [facility] [address] [place] [address] Mar, Mild chronic obstructive pulmonary disease J44.9 [facility] [id number] [place] [address] Mar, [facility] [id number] [place] [address] Mar, Epigastric pain R10.13 ; Low back pain M54.5 ; Other chronic pain G89.29 and Breast cancer screening Z12.39 [facility] [id number] [place] [address] Mar, [facility] [id number] [place] [address] Mar, [facility] [id number] [place] [address] Feb, [facility] [id number] [place] [address] Feb, [facility] [address] [place] [address] Feb, Fissure in skin of foot R23.4 and Onychomycosis B35.1 [facility] [address] [place] [address] Jan, Agoraphobia F40.00 [facility] [id number] [place] [address] 14 Dec, 2015 Agoraphobia F40.00 [facility] [address] [place] [address] Dec, Mild persistent asthma without complication J45.30 ; Dysthymic disorder F34.1 and Upper respiratory tract infection, unspecified type J06.9 [facility] [id number] [place] [address] Nov, Agoraphobia F40.00 [facility] [id number] [place] [address] October, Agoraphobia F40.00 [facility] [id number] [place] [address] Sep, Panic disorder without agoraphobia F41.0 ; Agoraphobia F40.00 and Dysthymic disorder F34.1 [facility] [id number] [place] [address] Sep, Panic attacks F41.0 [facility] [id number] [place] [address] Sep, [facility] [address] [address] Sep, Panic disorder without agoraphobia F41.0 ; Varicose veins of both lower extremities I83.93 and Fatigue R53.83 [facility] [id number] [place] [address] Sep, Fatigue R53.83 [facility] [id number] [place] [address] Sep, [facility] [id number] [place] [address] Aug, [facility] [id number] [place] [address] Aug, [facility] [id number] [place] [address] Aug, 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 [facility] [id number] [place] [address] Aug, Panic disorder without agoraphobia F41.0 ; Agoraphobia F40.00 and Dysthymic disorder F34.1 [place] [id number] [place] [address] Aug, Shortness of breath R06.02 ; Panic attacks F41.0 ; COPD (chronic obstructive pulmonary disease) J44.9 ; Tobacco abuse Z72.0 ; Family history of diabetes mellitus Z83.3 and Weight gain R63.[address] [address] Aug, [place] [address] [address] Jul, [address] [address] Jun, Onychomycosis B35.1 ; Neuropathy G62.9 and Impaired circulation I99.[address] [address] Mar, Fissure in skin of foot R23.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 [address] Feb, Family history of coronary arteriosclerosis V17.3 [place] [id number] [place] [address] 15 Feb, 2015 Allergic rhinitis due to pollen 477.0 ; Unspecified breast screening V76.10 ; Anxiety 300.00 and Family history of coronary arteriosclerosis V17.3 [place] [id number] [place] [address] Jan, [address] [address] Dec, [place] [id number] [place] [address] Dec, Onychomycosis 110.1 and Skin fissures 709.8 [facility] [place] [facility] [address] [id number] [place] [address] 14 Sep, 2014 [facility] [place] [facility] [address] [id number] [place] [address] Sep, [facility] [place] [facility] [address] [id number] [place] [address] Aug, [facility] [place] [facility] [address] [id number] [place] [address] Aug, [facility] [place] [facility] [address] [id number] [place] [address] Jul, [facility] [place] [facility] [address] [id number] [place] [address] Jul, [facility] [place] [facility] [address] [id number] [place] [address] Jun, [facility] [place] [facility] [address] [id number] [place] [address] Jun, [facility] [place] [facility] [address] [id number] [place] [address] Jun, [facility] [place] [facility] [address] [id number] [place] [address] Jun, [facility] [place] [facility] [address] [id number] [place] [address] Jun, [facility] [place] [facility] [address] [id number] [place] [address] May, [facility] [place] [facility] [address] [id number] [place] [address] May, [facility] [place] [facility] [address] [id number] [place] [address] May, [facility] [place] [facility] [address] [id number] [place] [address] May, [facility] [place] [facility] [address] [id number], [place] [address] May, [facility] [place] [facility] [address] [id number] [place] [address] May, [facility] [place] [facility] [address] [id number] [place] [address] May, [facility] [place] [facility] [address] [id number] [place] [address] May, [facility] [place] [facility] [address] [id number] [place] [address] Apr, [facility] [place] [facility] [address] [id number] [place] [address] Apr, [facility] [place] [facility] [address] [id number] [place] [address] Apr, [facility] [place] [facility] [address] [id number] [place] [address] Apr, [facility] [place] [facility] [address] [id number] [place] [address] Apr, [facility] [place] [facility] [address] [id number] [place] [address] Apr, [facility] [place] [facility] [address] [id number] [place] [address] Apr, [facility] [place] [facility] [address] [id number], [place] [address] Apr, [facility] [place] [facility] [address] [id number], [place] [address] Apr, [facility] [place] [facility] [address] [id number], [place] [address] Apr, [facility] [place] [facility] [address] [id number], [place] [address] Mar, [facility] [place] [facility] [address] [id number] [place] [address] Mar, [facility] [place] [facility] [address] [id number] [place] [address] Mar, [facility] [place] [facility] [address] [id number] [place] [address] Mar, [facility] [place] [facility] [address] [id number] [place] [address] Mar, [facility] [place] [facility] [address] [id number] [place] [address] Mar, [facility] [place] [facility] [address] [id number] [place] [address] Mar, [facility] [place] [facility] [address] [id number] [place] [address] Mar, [facility] [place] [facility] [address] [id number] [place] [address] Mar, [facility] [place] [facility] [address] [id number] [place] [address] Mar, [facility] [place] [facility] [address] [id number] [place] [address] Mar, [facility] [place] [facility] [address] [id number] [place] [address] Mar, [facility] [place] [facility] [address] [id number] [place] [address] Mar, [facility] [place] [facility] [address] [id number] [place] [address] Mar, [facility] [place] [facility] [address] [id number] [place] [address] Mar, [facility] [place] [facility] [address] [id number] [place] [address] Mar, [facility] [place] [facility] [address] [id number] [place] [address] 20 Mar, 2014 [facility] [place] [facility] [address] [id number] [place] [address] 16 Mar, 2014 [facility] [place] [facility] [address] [id number] [place] [address] 16 Mar, 2014 [facility] [place] [facility] [address] [id number] [place] [address] 15 Mar, 2014 [facility] [place] [facility] [address] [id number] [place] [address] 14 Mar, 2014 [facility] [place] [facility] [address] [id number] [place] [address] 14 Mar, 2013 [facility] [place] [facility] [address] [id number] [place] [address] 14 Mar, 2014 [facility] [place] [facility] [address] [id number] [place] [address] 14 Mar, 2014 [facility] [place] [facility] [address] [id number] [place] [address] 09 Mar, 2014 [facility] [place] [facility] [address] [id number] [place] [address] 09 Mar, 2014 [facility] [place] [facility] [address] [id number] [place] [address] 09 Mar, 2014 [facility] [place] [facility] [address] [id number] [place] [address] 09 Mar, 2014 [facility] [place] [facility] [address] [id number], [place] [address] 30 Feb, 2013 [facility] [place] [facility] [address] [id number], [place] [address] 30 Sep, 2013 [facility] [place] [facility] [address] [id number] [place] [address] 30 Sep, 2013 [facility] [place] [facility] [address] [id number] [place] [address] 30 Sep, 2013 [facility] [place] [facility] [address] [id number] [place] [address] 26 Feb, 2013 [facility] [place] [facility] [address] [id number] [place] [address] Feb, 2013 [facility] [place] [facility] [address] [id number] [place] [address] Sep, 2013 [facility] [place] [facility] [address] [id number] [place] [address] Feb, 2013 [facility] [place] [facility] [address] [id number] [place] [address] Feb, 2013 [facility] [place] [facility] [address] [id number] [place] [address] Feb, 2013 [facility] [place] [facility] [address] [id number] [place] [address] Feb, 2013 [facility] [place] [facility] [address] [id number] [place] [address] Feb, 2013 [facility] [place] [facility] [address] [id number] [place] [address] Jan, 2013 [facility] [place] [facility] [address] [id number] [place] [address] Jan, [facility] [place] [facility] [address] [id number] [place] [address] Jan, [facility] [place] [facility] [address] [id number] [place] [address] Jan, [facility] [place] [facility] [address] [id number] [place] [address] Jan, [facility] [place] [facility] [address] [id number] [place] [address] Jan, [facility] [place] [facility] [address] [id number] [place] [address] Jan, [facility] [place] [facility] [address] [id number] [place] [address] Jan, [facility] [place] [facility] [address] [id number] [place] [address] Jan, [facility] [place] [facility] [address] [id number] [place] [address] Jan, [facility] [place] [facility] [address] [id number] [place] [address] Jan, [facility] [place] [facility] [address] [id number] [place] [address] Jan, [facility] [place] [facility] [address] [id number] [place] [address] Jan, [facility] [place] [facility] [address] [id number] [place] [address] Dec, [facility] [place] [facility] [address] [id number] [place] [address] Dec, [facility] [place] [facility] [address] [id number] [place] [address] Dec, [facility] [place] [facility] [address] [id number] [place] [address] Dec, [facility] [place] [facility] [address] [id number] [place] [address] Dec, [facility] [place] [facility] [address] [id number] [place] [address] Dec, [facility] [place] [facility] [address] [id number] [place] [address] Dec, [facility] [place] [facility] [address] [id number] [facility] [place] [address] Dec, [facility] [place] [facility] [address] [id number] [facility] [place] [address] Dec, [facility] [place] [facility] [address] [id number] [place] [address] Dec, [facility] [place] [facility] [address] [id number] [place] [address] Dec, [facility] [place] [facility] [address] [id number] [place] [address] Dec, 2013 [facility] [place] [facility] [address] [id number] [place] [address] Dec, 2013 [facility] [place] [facility] [address] [id number] [place] [address] Dec, 2013 [facility] [place] [facility] [address] [id number] [place] [address] Dec, 2013 [facility] [place] [facility] [address] [id number] [place] [address] Dec, 2013 [facility] [place] [facility] [address] [id number] [place] [address] Dec, [facility] [place] [facility] [address] [id number] [place] [address] Dec, [facility] [place] [facility] [address] [id number] [place] [address] Nov, [facility] [place] [facility] [address] [id number] [place] [address] Nov, [facility] [place] [facility] [address] [id number] [place] [address] Nov, [facility] [place] [facility] [address] [id number] [place] [address] Nov, [facility] [place] [facility] [address] [id number], [place] [address] Nov, [facility] [place] [facility] [address] [id number], [place] [address] Nov, [facility] [place] [facility] [address] [id number] [place] [address] Nov, [facility] [place] [facility] [address] [id number] [place] [address] Nov, [facility] [place] [facility] [address] [id number] [place] [address] Nov, [facility] [place] [facility] [address] [id number] [place] [address] Nov, [facility] [place] [facility] [address] [id number] [place] [address] Nov, [facility] [place] [facility] [address] [id number] [place] [address] Nov, [facility] [place] [facility] [address] [id number] [place] [address] Nov, [facility] [place] [facility] [address] [id number] [place] [address] Nov, [facility] [place] [facility] [address] [id number] [place] [address] Nov, [facility] [place] [facility] [address] [id number] [place] [address] Nov, [facility] [place] [facility] [address] [id number] [place] [address] Nov, [facility] [place] [facility] [address] [id number] [place] [address] Nov, [facility] [place] [facility] [address] [id number] [place] [address] Nov, [facility] [place] [facility] [address] [id number] [place] [address] Nov, [facility] [place] [facility] [address] [id number] [place] [address] October, [facility] [place] [facility] [address] [id number] [place] [address] October, [facility] [place] [facility] [address] [id number] [place] [address] October, [facility] [place] [facility] [address] [id number] [place] [address] October, [facility] [place] [facility] [address] [id number] [place] [address] Sep, [facility] [place] [facility] [address] [id number] [place] [address] Sep, [facility] [place] [facility] [address] [id number] [place] [address] Sep, [facility] [place] [facility] [address] [id number] [place] [address] Sep, [facility] [place] [facility] [address] [id number] [place] [address] Sep, [facility] [place] [facility] [address] [id number] [place] [address] Sep, [facility] [place] [facility] [address] [id number] [place] [address] Sep, [facility] [place] [facility] [address] [id number] [place] [address] Sep, [facility] [place] [facility] [address] [id number] [place] [address] Sep, [facility] [place] [facility] [address] [id number] [place] [address] Aug, [facility] [place] [facility] [address] [id number] [place] [address] Aug, [facility] [place] [facility] [address] [id number] [place] [address] Aug, [facility] [place] [facility] [address] [id number] [place] [address] Aug, [facility] [place] [facility] [address] [id number] [place] [address] Aug, [facility] [place] [facility] [address] [id number] [place] [address] Aug, [facility] [place] [facility] [address] [id number] [place] [address] Aug, [facility] [place] [facility] [address] [id number], [place] [address] Aug, [facility] [address] [id number] [place] [address] Jul, [facility] [place] [facility] [address] [id number] [place] [address] Jul, [facility] [place] [facility] [address] [id number] [place] [address] Jun, [facility] [place] [facility] [address] [id number] [place] [address] Jun, [facility] [place] [facility] [address] [id number] [place] [address] Jun, [facility] [place] [facility] [address] [id number] [place] [address] Jun, [facility] [place] [facility] [address] [id number] [place] [address] Jun, [facility] [place] [facility] [address] [id number] [place] [address] Jun, [facility] [place] [facility] [address] [id number] [place] [address] Jun, [facility] [place] [facility] [address] [id number] [place] [address] Jun, [facility] [place] [facility] [address] [id number] [place] [address] Jun, [facility] [place] [facility] [address] [id number] [place] [address] Jun, [facility] [place] [facility] [address] [id number] [place] [address] Jun, [facility] [place] [facility] [address] [id number] [place] [address] Jun, [facility] [place] [facility] [address] [id number] [place] [address] May, [facility] [place] [facility] [address] [id number] [place] [address] 31 May, 2013 [facility] [place] [facility] [address] [id number] [place] [address] May, [facility] [place] [facility] [address] [id number] [place] [address] May, [facility] [place] [facility] [address] [id number] [place] [address] May, [facility] [place] [facility] [address] [id number] [place] [address] 31 May, 2013 [facility] [place] [facility] [address] [id number] [place] [address] May, [facility] [place] [facility] [address] [id number] [place] [address] May, [facility] [place] [facility] [address] [id number] [place] [address] May, [facility] [place] [facility] [address] [id number] [place] [address] 16 May, 2013 [facility] [place] [facility] [address] [id number] [place] [address] May, [facility] [place] [facility] [address] [id number] [place] [address] 16 May, 2013 [facility] [place] [facility] [address] [id number] [place] [address] May, [facility] [place] [facility] [address] [id number] [place] [address] Apr, [facility] [place] [facility] [address] [id number] [place] [address] Apr, [facility] [place] [facility] [address] [id number] [place] [address] Mar, [facility] [place] [facility] [address] [id number] [place] [address] Mar, [facility] [place] [facility] [address] [id number] [place] [address] Feb, [facility] [place] [facility] [address] [id number] [place] [address] Feb, [facility] [place] [facility] [address] [id number] [place] [address] Feb, [facility] [place] [facility] [address] [id number] [place] [address] Feb, [facility] [place] [facility] [address] [id number] [place] [address] Jan, [facility] [place] [facility] [address] [id number] [place] [address] Jan, [facility] [place] [facility] [address] [id number] [place] [address] Jan, [facility] [place] [facility] [address] [id number] [place] [address] Jan, [facility] [place] [facility] [address] [id number] [place] [address] Jan, [facility] [place] [facility] [address] [id number] [place] [address] Jan, [facility] [place] [facility] [address] [id number] [place] [address] Dec, [facility] [place] [facility] [address] [id number], [place] [address] Dec, [facility] [place] [facility] [address] [id number] [place] [address] Dec, [facility] [place] [facility] [address] [id number] [place] [address] Dec, [facility] [place] [facility] [address] [id number] [place] [address] Nov, [facility] [place] [facility] [address] [id number] [place] [address] October, [facility] [address] [id number] [place] [address] October, [facility] [place] [facility] [address] [id number] [place] [address] October, [facility] [place] [facility] [address] [id number] [place] [address] Sep, [facility] [place] [facility] [address] [id number] [place] [address] Sep, [facility] [place] [facility] [address] [id number] [place] [address] Jun, [facility] [place] [facility] [address] [id number] [place] [address] Jun, [facility] [address] [id number] [place] [address] Jun, [facility] [place] [facility] [address] [id number] [place] [address] Apr, [facility] [place] [facility] [address] [id number] [place] [address] Apr, [facility] [place] [facility] [address] [facility] [id number] [place] [address] Apr, [facility] [place] [facility] [address] [id number] [place] [address] Apr, [facility] [place] [facility] [address] [id number] [place] [address] Mar, [facility] [place] [facility] [address] [id number] [place] [address] Mar, [facility] [place] [facility] [address] [id number] [place] [address] Mar, [facility] [place] [facility] [address] [id number] [place] [address] Mar, [facility] [place] [facility] [address] [id number] [place] [address] 29 Feb, 2012 [facility] [place] [facility] [address] [id number] [place] [address] 27 Feb, 2012 [facility] [place] [facility] [address] [id number] [place] [address] 20 Feb, 2012 [facility] [place] [facility] [address] [id number] [place] [address] 30 Jan, 2012 [facility] [place] [facility] [address] [id number] [place] [address] Jan, [facility] [place] [facility] [address] [id number] [place] [address] Jan, [facility] [place] [facility] [address] [id number] [place] [address] Jan, [facility] [place] [facility] [address] [id number] [place] [address] Dec, [facility] [place] [facility] [address] [id number] [place] [address] Dec, [facility] [place] [facility] [address] [id number] [place] [address] Nov, [facility] [place] [facility] [address] [id number] [place] [address] Nov, [facility] [place] [facility] [address] [id number] [place] [address] October, [facility] [place] [facility] [address] [id number] [place] [address] October, [facility] [place] [facility] [address] [id number] [place] [address] October, [facility] [place] [facility] [address] [id number] [place] [address] Sep, [facility] [place] [facility] [address] [id number], [place] [address] Sep, [facility] [address] [id number] [place] [address] Sep, [facility] [address] [id number] [place] [address] 27 Aug, 2011 [facility] [address] [facility] [id number] [place] [address] 26 Aug, 2011 [facility] [address] [id number] [place] [address] 15 Aug, 2011 [facility] [address] [id number] [place] [address] 15 Aug, 2011 [facility] [address] [facility] [id number] [place] [address] 07 Aug, 2011 [facility] [address] [facility] [id number] [place] [address] 23 Jul, 2011 [facility] [place] [facility] [address] [id number] [place] [address] 16 Jul, 2011 [facility] [address] [id number] [place] [address] 13 Jul, 2011 [facility] [address] [facility] [id number] [place] [address] Jul, [facility] [place] [facility] [address] [facility] [id number] [place] [address] 07 Jul, 2011 [facility] [place] [facility] [address] [id number], [place] [address] 06 Jul, 2011 [facility] [place] [facility] [address] [id number] [place] [address] 03 Jul, 2011 [facility] [place] [facility] [address] [id number] [place] [address] Jul, [facility] [place] [facility] [address] [facility] [id number], [place] [address] Jun, [facility] [place] [facility] [address] [id number] [place] [address] Jun, [facility] [place] [facility] [address] [id number] [place] [address] May, [facility] [place] [facility] [address] [id number] [place] [address] May, [facility] [place] [facility] [address] [id number] [place] [address] May, [facility] [place] [facility] [address] [id number] [place] [address] May, [facility] [place] [facility] [address] [id number] [place] [address] Apr, [facility] [place] [facility] [address] [id number] [place] [address] Apr, [facility] [place] [facility] [address] [id number] [place] [address] Apr, [facility] [place] [facility] [address] [id number] [place] [address] Mar, [facility] [place] [facility] [address] [id number] [place] [address] Mar, [facility] [place] [facility] [address] [id number] [place] [address] Mar, [facility] [place] [facility] [address] [id number] [place] [address] Mar, [facility] [place] [facility] [address] [id number] [place] [address] Dec, [facility] [place] [facility] [address] [id number] [place] [address] October, [facility] [place] [facility] [address] [id number] [place] [address] May, [facility] [place] [facility] [address] [id number], [place] [address] 13 May, 2010 [facility] [address] [facility] [id number], [place] [address] May, [facility] [address] [facility] [id number], [place] [address] May, [facility] [id number], [place] [address] Mar, [facility] [address] [facility] [id number], [place] [address] Mar, [facility] [address] [facility] [id number], [place] [address] May, [facility] [id number], [place] [address] May, [facility] [id number], [place] [address] May, [facility] [id number], [place] [address] May, [facility] [id number], [place] [address] Apr, [facility] [id number], [place] [address] Apr, [facility] [address] [id number], [place] [address] October, IMMUNIZATIONS No Known Immunizations SOCIAL HISTORY Never Assessed REASON FOR VISIT [facility] PLAN OF CARE VITAL SIGNS MEDICATIONS Unknown [...]
--- OUTSIDE RECORDS SUMMARY | 2019-01-13 10:27 | XMS REPORT ---
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 324937583 Problem MRSA (methicillin resistant staph aureus) culture positive Z22.322 Active 713826434 Problem Snoring R06.83 Active 56057544 Problem COPD exacerbation J44.1 Active 179290787 Problem Major depressive disorder, recurrent episode, moderate F33.1 Active 198518432 Problem Exertional asthma J45.990 Active 95499594 Problem COPD (chronic obstructive pulmonary disease) with chronic bronchitis J44.9 Active 900589350 Problem Dysthymic disorder F34.1 Active 32361604 Problem Fatigue R53.83 Active 56757980 Problem Panic disorder without agoraphobia F41.0 Active 52391867 Problem Agoraphobia F40.00 Active 43878708 Problem Mild persistent asthma without complication J45.30 Active 623452257 Problem Other chronic pain G89.29 Active 96216894 Problem Varicose veins of both lower extremities I83.93 Active 90965098 Problem Mild chronic obstructive pulmonary disease J44.9 Active 697591139 Problem History of illicit drug use Z87.898 Active 732092761 Problem Upper respiratory tract infection, unspecified type J06.9 Active 27392550 Problem On home oxygen therapy Z99.81 Active [id number] ALLERGIES No Information ENCOUNTERS Encounter Location Date Diagnosis [facility] [address] [facility] [id number] [place] [address] Aug, [place] [address] [place] [id number] [place] [address] May, [place] [address] [address] May, Onychomycosis B35.1 and 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 [place] [address] [address] May, Low back pain M54.5 and Edema leg R60.[address] [address] May, BMI 45.0-49.9, adult Z68.42 ; Well woman exam with routine gynecological exam Z01.419 and Breast cancer screening Z12.[address] [address] 19 Apr, 2018 Arthritis M19.90 [place] [address] [address] 16 Apr, 2018 Arthritis M19.90 and Otalgia of both ears H92.03 [place] [address] [address] 28 Feb, 2018 [place] [address] [address] 28 Feb, 2018 Low back pain M54.5 ; Other chronic pain G89.29 ; Exertional asthma J45.990 and Encounter for immunization Z23 [place] [address] [address] 21 Feb, 2018 Skin fissures R23.4 ; Neuropathy G62.9 and Onychomycosis B35.1 [place] [address] [address] 05 Feb, 2018 Dysthymic disorder F34.1 [place] [address] [place] [address] Feb, [facility] [address] [address] Jan, [place] [address] [address] Jan, Abrasion of right elbow, initial encounter S50.311A ; Abrasion, right knee, initial encounter S80.211A and Sprain of other ligament of right ankle, initial encounter S93.491A [facility] [address] [address] Jan, [facility] [address] [address] Jan, Injury of left ankle, initial encounter S99.912A ; Fall down stairs, initial encounter W10.8XXA and BMI 45.0-49.9, adult Z68.42 [place] [address] [address] Jan, COPD exacerbation J44.1 [place] [address] [address] Jan, Dysfunction of both eustachian 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 [place] [address] [address] 08 Jan, 2018 Bronchitis J40 and Acute suppurative otitis media of left ear without spontaneous rupture of tympanic membrane, recurrence not specified H66.002 [place] [address] [address] Jan, [place] [address] [address] Jan, Bronchitis J40 and BMI 40.0-44.9, adult Z68.41 [place] [address] [address] Jan, [place] [address] [place] [address] Dec, Gastric pain R10.9 [place] [address] [place] [id number] [place] [address] Dec, [place] [address] [place] [id number] [place] [address] Dec, History of illicit drug use Z87.898 ; Neuropathy G62.9 ; COPD (chronic obstructive pulmonary disease) with chronic bronchitis J44.9 and Acute pain of right knee M25.561 [place] [address] [place] [id number] [place] [address] Nov, [place] [address] [place] [id number] [place] [address] Nov, Onychomycosis B35.1 and Contusion of left foot, subsequent encounter S90.32XD [place] [address] [place] [id number] [place] [address] Nov, COPD exacerbation J44.1 [place] [address] [place] [id number] [place] [address] Sep, [place] [address] [place] [id number] [place] [address] Sep, Dysthymic disorder F34.1 ; Tobacco abuse Z72.0 ; Pain in right knee M25.561 ; Pain in left knee M25.562 ; Other chronic pain G89.29 and BMI 40.0- 44.9, adult Z68.41 [place] [id number] [place] [address] Aug, Major depressive disorder, recurrent episode, moderate F33.1 and 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 [place] [id number] [place] [address] Aug, Dysthymic disorder F34.1 ; Non-pressure chronic ulcer of left thigh, unspecified ulcer stage L97.129 ; Tobacco abuse Z72.0 ; Mild chronic obstructive pulmonary disease J44.9 and Forgetfulness R68.89 [place] [address] [place] [id number] [place] [address] Aug, Onychomycosis B35.1 ; Fissure in skin of foot R23.4 and Foot callus L84 [facility] [address] [address] [id number] [place] [address] Jul, Right medial knee pain M25.561 ; Upper respiratory tract infection, unspecified type J06.9 and BMI 40.0-44.9, adult Z68.41 [facility] [address] [place] [id number] [place] [address] Jul, Nausea and vomiting, intractability of vomiting not specified, unspecified vomiting type R11.2 ; Left ear pain H92.02 and Gastric pain R10.9 [place] [address] [address] Apr, Encounter for immunization Z23 [place] [address] [address] Apr, Onychomycosis B35.1 ; Xerosis of skin L85.3 ; Neuropathy G62.9 and 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 [place] [address] [place] [id number] [place] [address] Jan, Onychomycosis B35.1 and Neuropathy G62.9 [place] [address] [place] [id number] [place] [address] Dec, [place] [address] [place] [id number] [place] [address] Dec, [place] [address] [address] Nov, [place] [address] [place] [id number] [place] [address] Aug, [place] [address] [place] [address] Aug, [facility] [address] [address] Jul, [facility] [address] [address] Jul, [facility] [address] [address] Jul, Decubitus ulcer of left thigh, stage 2 L89.892 [facility] [address] [address] 17 Jul, 2016 Decubitus ulcer of left thigh, stage 2 L89.892 [facility] [address] [address] 17 Jul, 2016 [facility] [address] [place] [id number] [address] 15 Jul, 2016 Decubitus ulcer of left thigh, stage 2 L89.892 [facility] [address] [address] 14 Jul, 2016 [facility] [address] [address] 13 Jul, 2016 Cellulitis of other specified site L03.818 ; Illicit drug use F19.90 and Decubitus ulcer of left thigh, stage 2 L89.892 [facility] [address] [address] 08 Jul, 2016 [facility] [address] [address] 06 Jul, 2016 Cellulitis of right breast N61.0 [facility] [address] [address] Jun, [facility] [address] [address] Jun, [facility] [address] [place] [id number] [place] [address] Jun, Wheezing R06.2 and Arthralgia, unspecified joint M25.50 [facility] [address] [place] [id number] [place] [address] May, [facility] [address] [place] [id number] [place] [address] May, [facility] [address] [place] [id number] [place] [address] May, [place] [address] [place] [id number] [place] [address] 05 May, 2016 Shortness of breath R06.02 [place] [address] [place] [id number] [place] [address] 02 May, 2016 Onychomycosis B35.1 and Fissure in skin of foot R23.4 [facility] [address] [place] [id number] [place] [address] 28 Apr, 2016 [facility] [address] [place] [id number] [place] [address] 18 Apr, 2016 Dizziness R42 [place] [address] [place] [id number] [place] [address] 14 Apr, 2016 Shortness of breath R06.02 ; Essential hypertension I10 ; Dizziness R42 and On home oxygen therapy Z99.81 [facility] [address] [place] [id number] [place] [address] Apr, [place] [address] [place] [id number] [place] [address] 08 Apr, 2016 [facility] [address] [place] [id number] [place] [address] 07 Apr, 2016 [facility] [address] [place] [id number] [place] [address] Apr, [facility] [address] [place] [id number] [place] [address] Apr, [facility] [address] [place] [id number] [place] [address] Apr, [facility] [address] [place] [id number] [place] [address] Apr, [facility] [address] [place] [id number] [place] [address] Mar, Mild chronic obstructive pulmonary disease J44.9 [facility] [address] [place] [id number] [place] [address] Mar, [facility] [address] [place] [id number] [place] [address] Mar, Epigastric pain R10.13 ; Low back pain M54.5 ; Other chronic pain G89.29 and Breast cancer screening Z12.39 [facility] [address] [place] [id number] [place] [address] Mar, [facility] [address] [place] [id number] [place] [address] Mar, [facility] [address] [place] [id number] [place] [address] Feb, [facility] [address] [place] [id number] [place] [address] Feb, [facility] [address] [place] [id number] [place] [address] Feb, Fissure in skin of foot R23.4 and Onychomycosis B35.1 [facility] [address] [place] [id number] [place] [address] Jan, Agoraphobia F40.00 [facility] [id number] [place] [address] Dec, Agoraphobia F40.00 [facility] [address] [place] [id number] [place] [address] Dec, Mild persistent asthma without complication J45.30 ; Dysthymic disorder F34.1 and Upper respiratory tract infection, unspecified type J06.9 [place] [address] [place] [id number] [place] [address] Nov, Agoraphobia F40.00 [place] [address] [place] [id number] [place] [address] October, Agoraphobia F40.00 [place] [address] [place] [id number] [place] [address] Sep, Panic disorder without agoraphobia F41.0 ; Agoraphobia F40.00 and Dysthymic disorder F34.1 [place] [address] [place] [id number] [place] [address] Sep, Panic attacks F41.0 [place] [address] [place] [id number] [place] [address] Sep, [place] [address] [place] [id number] [place] [address] Sep, Panic disorder without agoraphobia F41.0 ; Varicose veins of both lower extremities I83.93 and Fatigue R53.83 [place] [address] [place] [id number] [place] [address] Sep, Fatigue R53.83 [place] [address] [place] [id number] [place] [address] 05 Sep, 2015 [place] [address] [place] [id number] [place] [address] Aug, [place] [address] [place] [id number] [place] [address] Aug, [place] [address] [place] [id number] [place] [address] Aug, 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 [place] [address] [place] [id number] [place] [address] Aug, Panic disorder without agoraphobia F41.0 ; Agoraphobia F40.00 and Dysthymic disorder F34.1 [place] [address] [place] [id number] [place] [address] Aug, Shortness of breath R06.02 ; Panic attacks F41.0 ; COPD (chronic obstructive pulmonary disease) J44.9 ; Tobacco abuse Z72.0 ; Family history of diabetes mellitus Z83.3 and Weight gain R63.5 [place] [id number] [place] [address] Aug, [place] [address] [place] [id number] [place] [address] Jul, [address] [address] Jun, Onychomycosis B35.1 ; Neuropathy G62.9 and Impaired circulation I99.9 [place] [id number] [place] [address] Mar, Fissure in skin of foot R23.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 [place] [address] [place] [id number] [place] [address] Feb, Family history of coronary arteriosclerosis V17.3 [place] [address] [place] [id number] [place] [address] 15 Feb, 2015 Allergic rhinitis due to pollen 477.0 ; Unspecified breast screening V76.10 ; Anxiety 300.00 and Family history of coronary arteriosclerosis V17.3 [place] [address] [place] [id number] [place] [address] Jan, [place] [address] [place] [id number] [place] [address] Dec, [place] [address] [facility] [id number] [place] [address] 10 Dec, 2014 Onychomycosis 110.1 and Skin fissures 709.8 [facility] [address] [id number] [place] [address] 14 Sep, 2014 [facility] [address] [place] [id number] [place] [address] Sep, [facility] [address] [id number] [place] [address] Aug, [facility] [address] [id number] [place] [address] Aug, [facility] [address] [facility] [id number] [place] [address] Jul, [facility] [address] [place] [address] Jul, [facility] [address] [place] [id number] [place] [address] Jun, [facility] [address] [id number] [place] [address] Jun, [facility] [address] [place] [id number] [place] [address] Jun, [facility] [address] [place] [id number] [place] [address] Jun, [facility] [address] [place] [id number] [address] Jun, [facility] [address] [facility] [id number] [place] [address] May, [facility] [address] [facility] [id number] [place] [address] May, [facility] [address] [place] [id number] [place] [address] May, [facility] [place] [facility] [address] [id number] [place] [address] May, [facility] [place] [facility] [address] [id number] [place] [address] May, [facility] [place] [facility] [address] [id number] [place] [address] May, [facility] [place] [facility] [address] [id number] [place] [address] May, [facility] [place] [facility] [address] [id number] [place] [address] May, [facility] [place] [facility] [address] [id number] [place] [address] Apr, [facility] [place] [facility] [address] [id number] [place] [address] Apr, [facility] [place] [facility] [address] [id number] [place] [address] Apr, [facility] [place] [facility] [address] [id number] [place] [address] Apr, [facility] [place] [facility] [address] [id number] [place] [address] Apr, [facility] [place] [facility] [address] [id number] [place] [address] Apr, [facility] [place] [facility] [address] [id number] [place] [address] Apr, [facility] [place] [facility] [address] [id number] [place] [address] Apr, [facility] [place] [facility] [address] [id number] [place] [address] Apr, [facility] [place] [facility] [address] [id number] [place] [address] Apr, [facility] [place] [facility] [address] [id number] [place] [address] Mar, [facility] [place] [facility] [address] [id number] [place] [address] Mar, [facility] [place] [facility] [address] [id number] [place] [address] Mar, [facility] [place] [facility] [address] [id number] [place] [address] Mar, [facility] [place] [facility] [address] [id number] [place] [address] Mar, [facility] [place] [facility] [address] [id number] [place] [address] Mar, [facility] [place] [facility] [address] [id number] [place] [address] Mar, [facility] [place] [facility] [address] [id number] [place] [address] Mar, [facility] [place] [facility] [address] [id number] [place] [address] Mar, [facility] [place] [facility] [address] [id number] [place] [address] Mar, [facility] [place] [facility] [address] [id number] [place] [address] Mar, [facility] [place] [facility] [address] [id number] [place] [address] Mar, [facility] [place] [facility] [address] [id number] [address] Mar, [facility] [place] [facility] [address] [id number] [place] [address] Mar, [facility] [place] [facility] [address] [id number] [place] [address] Mar, [facility] [place] [facility] [address] [id number] [place] [address] Mar, [facility] [place] [facility] [address] [id number] [place] [address] 20 Mar, 2013 [facility] [place] [facility] [address] [id number] [place] [address] 16 Mar, 2013 [facility] [place] [facility] [address] [id number] [place] [address] 16 Mar, 2013 [facility] [place] [facility] [address] [id number] [place] [address] 15 Mar, 2013 [facility] [place] [facility] [address] [id number] [place] [address] 14 Mar, 2013 [facility] [place] [facility] [address] [id number] [place] [address] 14 Mar, 2013 [facility] [place] [facility] [address] [id number] [place] [address] 14 Mar, 2013 [facility] [place] [facility] [address] [id number] [place] [address] 14 Mar, 2013 [facility] [place] [facility] [address] [id number] [place] [address] 09 Mar, 2013 [facility] [place] [facility] [address] [id number] [place] [address] 09 Mar, 2013 [facility] [place] [facility] [address] [id number] [place] [address] 09 Mar, 2013 [facility] [place] [facility] [address] [id number] [place] [address] 09 Mar, 2013 [facility] [place] [facility] [address] [id number], [place] [address] 30 Feb, 2013 [facility] [place] [facility] [address] [id number] [place] [address] 30 Sep, 2013 [facility] [place] [facility] [address] [id number], [place] [address] 30 Sep, 2013 [facility] [place] [facility] [address] [id number], [place] [address] 30 Sep, 2013 [facility] [place] [facility] [address] [id number] [place] [address] Feb, 2013 [facility] [place] [facility] [address] [id number] [place] [address] Feb, 2013 [facility] [place] [facility] [address] [id number] [place] [address] Feb, 2013 [facility] [place] [facility] [address] [id number] [place] [address] Feb, 2013 [facility] [place] [facility] [address] [id number] [place] [address] Feb, 2013 [facility] [place] [facility] [address] [id number] [place] [address] Feb, 2013 [facility] [place] [facility] [address] [id number] [place] [address] Feb, 2013 [facility] [place] [facility] [address] [id number] [place] [address] Feb, 2013 [facility] [place] [facility] [address] [id number] [place] [address] Jan, [facility] [place] [facility] [address] [id number] [place] [address] Jan, [facility] [place] [facility] [address] [id number] [place] [address] Jan, [facility] [place] [facility] [address] [id number] [place] [address] Jan, [facility] [place] [facility] [address] [id number] [place] [address] Jan, [facility] [place] [facility] [address] [id number] [place] [address] Jan, [facility] [place] [facility] [address] [id number] [place] [address] Jan, [facility] [place] [facility] [address] [id number] [place] [address] Jan, [facility] [place] [facility] [address] [id number] [place] [address] Jan, [facility] [place] [facility] [address] [id number] [place] [address] Jan, [facility] [place] [facility] [address] [id number] [place] [address] Jan, [facility] [place] [facility] [address] [id number] [place] [address] Jan, [facility] [place] [facility] [address] [id number] [place] [address] Jan, [facility] [place] [facility] [address] [id number] [place] [address] Dec, [facility] [place] [facility] [address] [id number] [place] [address] Dec, [facility] [place] [facility] [address] [id number] [place] [address] Dec, [facility] [place] [facility] [address] [id number] [place] [address] Dec, [facility] [place] [facility] [address] [id number] [place] [address] Dec, [facility] [place] [facility] [address] [id number] [place] [address] Dec, [facility] [place] [facility] [address] [id number] [place] [address] Dec, [facility] [place] [facility] [address] [id number] [place] [address] Dec, [facility] [place] [facility] [address] [id number] [place] [address] Dec, [facility] [place] [facility] [address] [id number] [place] [address] Dec, [facility] [place] [facility] [address] [id number] [place] [address] Dec, 2013 [facility] [place] [facility] [address] [id number] [place] [address] Dec, 2013 [facility] [place] [facility] [address] [id number] [place] [address] Dec, 2013 [facility] [place] [facility] [address] [id number] [place] [address] Dec, 2013 [facility] [place] [facility] [address] [id number] [place] [address] Dec, 2013 [facility] [place] [facility] [address] [id number] [place] [address] Dec, 2013 [facility] [place] [facility] [address] [id number] [place] [address] Dec, [facility] [place] [facility] [address] [id number] [place] [address] Dec, 2013 [facility] [place] [facility] [address] [id number] [place] [address] Nov, [facility] [place] [facility] [address] [id number] [place] [address] Nov, [facility] [place] [facility] [address] [id number] [place] [address] Nov, [facility] [place] [facility] [address] [id number] [place] [address] Nov, [facility] [place] [facility] [address] [id number] [place] [address] Nov, [facility] [place] [facility] [address] [id number] [place] [address] Nov, [facility] [place] [facility] [address] [id number] [place] [address] Nov, [facility] [place] [facility] [address] [id number] [place] [address] Nov, [facility] [place] [facility] [address] [id number] [place] [address] Nov, [facility] [place] [facility] [address] [id number] [place] [address] Nov, [facility] [place] [facility] [address] [id number] [place] [address] Nov, [facility] [place] [facility] [address] [id number] [place] [address] Nov, [facility] [place] [facility] [address] [id number] [place] [address] Nov, [facility] [place] [facility] [address] [id number] [place] [address] Nov, [facility] [place] [facility] [address] [id number] [place] [address] Nov, [facility] [place] [facility] [address] [id number] [place] [address] Nov, [facility] [place] [facility] [address] [id number] [place] [address] Nov, [facility] [place] [facility] [address] [id number] [place] [address] Nov, [facility] [place] [facility] [address] [id number] [place] [address] Nov, [facility] [place] [facility] [address] [id number] [place] [address] Nov, [facility] [place] [facility] [address] [id number] [place] [address] October, [facility] [place] [facility] [address] [id number] [place] [address] October, [facility] [place] [facility] [address] [id number] [place] [address] October, [facility] [place] [facility] [address] [id number] [place] [address] October, [facility] [place] [facility] [address] [id number] [place] [address] Sep, [facility] [place] [facility] [address] [id number] [place] [address] Sep, [facility] [place] [facility] [address] [id number] [place] [address] Sep, [facility] [place] [facility] [address] [id number] [place] [address] Sep, [facility] [place] [facility] [address] [id number] [place] [address] Sep, [facility] [place] [facility] [address] [id number] [place] [address] Sep, [facility] [place] [facility] [address] [id number] [place] [address] Sep, [facility] [place] [facility] [address] [id number] [place] [address] Sep, [facility] [place] [facility] [address] [id number] [place] [address] Sep, [facility] [place] [facility] [address] [id number] [place] [address] Aug, [facility] [place] [facility] [address] [id number] [place] [address] Aug, [facility] [place] [facility] [address] [id number] [place] [address] Aug, [facility] [place] [facility] [address] [id number] [place] [address] Aug, [facility] [place] [facility] [address] [id number] [place] [address] Aug, [facility] [place] [facility] [address] [id number] [place] [address] Aug, [facility] [place] [facility] [address] [id number] [place] [address] Aug, [facility] [address] [id number] [place] [address] Aug, [facility] [place] [facility] [address] [id number] [place] [address] Jul, [facility] [place] [facility] [address] [id number] [place] [address] Jul, [facility] [place] [facility] [address] [id number] [place] [address] Jun, [facility] [place] [facility] [address] [id number] [place] [address] Jun, [facility] [place] [facility] [address] [id number] [place] [address] Jun, [facility] [place] [facility] [address] [id number] [place] [address] Jun, [facility] [place] [facility] [address] [id number] [place] [address] Jun, [facility] [place] [facility] [address] [id number] [place] [address] Jun, [facility] [place] [facility] [address] [id number] [place] [address] Jun, [facility] [place] [facility] [address] [id number] [place] [address] Jun, [facility] [place] [facility] [address] [id number] [place] [address] Jun, [facility] [place] [facility] [address] [id number] [place] [address] Jun, [facility] [place] [facility] [address] [id number] [place] [address] Jun, [facility] [place] [facility] [address] [id number] [place] [address] Jun, [facility] [address] [id number] [place] [address] May, [facility] [place] [facility] [address] [id number] [place] [address] May, [facility] [place] [facility] [address] [id number] [place] [address] May, [facility] [place] [facility] [address] [id number] [place] [address] May, [facility] [place] [facility] [address] [id number] [place] [address] May, [facility] [place] [facility] [address] [id number] [place] [address] May, [facility] [place] [facility] [address] [id number] [place] [address] May, [facility] [place] [facility] [address] [id number] [place] [address] May, [facility] [place] [facility] [address] [id number] [place] [address] May, [facility] [place] [facility] [address] [id number] [place] [address] 16 May, 2013 [facility] [place] [facility] [address] [id number], [place] [address] 16 May, 2013 [facility] [place] [facility] [address] [id number], [place] [address] May, [facility] [place] [facility] [address] [id number] [place] [address] May, [facility] [place] [facility] [address] [id number], [place] [address] Apr, [facility] [place] [facility] [address] [id number] [place] [address] Apr, [facility] [place] [facility] [address] [id number] [place] [address] Mar, [facility] [address] [id number] [place] [address] Mar, [facility] [place] [facility] [address] [id number] [place] [address] Feb, [facility] [place] [facility] [address] [id number] [place] [address] Feb, [facility] [place] [facility] [address] [id number] [place] [address] Feb, [facility] [place] [facility] [address] [id number] [place] [address] Feb, [facility] [place] [facility] [address] [id number] [place] [address] Jan, [facility] [place] [facility] [address] [id number] [place] [address] Jan, [facility] [place] [facility] [address] [id number] [place] [address] Jan, [facility] [place] [facility] [address] [id number] [place] [address] Jan, [facility] [place] [facility] [address] [id number] [place] [address] Jan, [facility] [place] [facility] [address] [id number] [place] [address] Jan, [facility] [place] [facility] [address] [id number] [place] [address] Dec, [facility] [place] [facility] [address] [id number] [place] [address] Dec, [facility] [place] [facility] [address] [id number] [place] [address] Dec, [facility] [place] [facility] [address] [id number] [place] [address] Dec, [facility] [place] [facility] [address] [id number] [place] [address] Nov, [facility] [place] [facility] [address] [id number] [place] [address] October, [facility] [place] [facility] [address] [id number] [place] [address] October, [facility] [place] [facility] [address] [id number] [place] [address] October, [facility] [place] [facility] [address] [id number] [place] [address] Sep, [facility] [place] [facility] [address] [id number] [place] [address] Sep, [facility] [address] [id number] [place] [address] Jun, [facility] [place] [facility] [address] [id number] [place] [address] Jun, [facility] [place] [facility] [address] [id number] [place] [address] Jun, [facility] [place] [facility] [address] [id number] [place] [address] Apr, [facility] [place] [facility] [address] [id number] [place] [address] Apr, [facility] [place] [facility] [address] [id number] [place] [address] Apr, [facility] [place] [facility] [address] [id number] [place] [address] Apr, [facility] [place] [facility] [address] [id number] [place] [address] Mar, [facility] [place] [facility] [address] [id number] [place] [address] Mar, [facility] [place] [facility] [address] [id number] [place] [address] Mar, [facility] [place] [facility] [address] [id number] [place] [address] Mar, [facility] [place] [facility] [address] [id number] [place] [address] 29 Feb, 2012 [facility] [place] [facility] [address] [id number] [place] [address] 27 Feb, 2012 [facility] [place] [facility] [address] [id number] [place] [address] 20 Feb, 2012 [facility] [place] [facility] [address] [id number] [place] [address] Jan, [facility] [place] [facility] [address] [id number] [place] [address] Jan, [facility] [place] [facility] [address] [id number] [place] [address] Jan, [facility] [place] [facility] [address] [id number] [place] [address] Jan, [facility] [place] [facility] [address] [id number] [place] [address] Dec, [facility] [place] [facility] [address] [id number] [place] [address] Dec, [facility] [place] [facility] [address] [id number] [place] [address] Nov, [facility] [place] [facility] [address] [id number] [place] [address] Nov, [facility] [place] [facility] [address] [id number] [place] [address] October, [facility] [place] [facility] [address] [id number] [place] [address] October, [facility] [place] [facility] [address] [id number] [place] [address] October, [facility] [place] [facility] [address] [id number] [place] [address] 09 Sep, 2011 [facility] [address] [id number] [place] [address] Sep, [facility] [address] [id number] [place] [address] Sep, [facility] [address] [id number] [place] [address] 27 Aug, 2011 [facility] [address] [id number] [place] [address] 26 Aug, 2011 [facility] [address] [id number] [place] [address] 15 Aug, 2011 [facility] [address] [facility] [id number] [place] [address] 15 Aug, 2011 [facility] [address] [facility] [id number] [place] [address] Aug, [facility] [address] [id number] [place] [address] 23 Jul, 2011 [facility] [address] [id number] [place] [address] 16 Jul, 2011 [facility] [address] [facility] [id number] [place] [address] 13 Jul, 2011 [facility] [address] [facility] [id number] [place] [address] Jul, [facility] [address] [id number] [place] [address] 07 Jul, 2011 [facility] [place] [facility] [address] [id number] [place] [address] 06 Jul, 2011 [facility] [address] [facility] [id number] [place] [address] 03 Jul, 2011 [facility] [place] [facility] [address] [facility] [id number] [place] [address] Jul, [facility] [place] [facility] [address] [id number] [place] [address] Jun, [facility] [place] [facility] [address] [id number] [place] [address] Jun, [facility] [place] [facility] [address] [facility] [id number] [place] [address] May, [facility] [place] [facility] [address] [id number] [place] [address] May, [facility] [place] [facility] [address] [id number] [place] [address] May, [facility] [place] [facility] [address] [id number] [place] [address] May, [facility] [place] [facility] [address] [id number] [place] [address] Apr, [facility] [place] [facility] [address] [id number] [place] [address] Apr, [facility] [place] [facility] [address] [id number] [place] [address] Apr, [facility] [place] [facility] [address] [id number] [place] [address] Mar, [facility] [place] [facility] [address] [id number], [place] [address] Mar, [facility] [place] [facility] [address] [id number], [place] [address] Mar, [facility] [place] [facility] [address] [id number], [place] [address] Mar, [facility] [place] [facility] [address] [facility] [id number], [place] [address] Dec, [facility] [place] [facility] [address] [facility] [id number], [place] [address] October, [facility] [place] [facility] [id number], [place] [address] 28 May, 2010 [facility] [id number], [place] [address] May, [facility] [id number], [place] [address] May, [facility] [id number], [place] [address] May, [facility] [id number], [place] [address] Mar, [facility] [id number] [place] [address] Mar, [facility] [id number], [place] [address] May, [facility] [id number] [place] [address] May, [facility] [id number], [place] [address] May, [facility] [id number], [place] [address] May, [facility] [id number], [place] [address] Apr, [facility] [id number], [place] [address] Apr, [facility] [address] [id number] [address] October, IMMUNIZATIONS No Known Immunizations SOCIAL HISTORY Never Assessed REASON FOR VISIT update history PLAN OF CARE VITAL SIGNS MEDICATIONS Unknown [...]
--- OUTSIDE RECORDS SUMMARY | 2019-01-13 10:28 | XMS REPORT ---
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 Name Role Phone BRENT PARRATA Unavailable PROBLEMS Type Condition ICD9-CM Code KBY33-XG Code Onset Dates Condition Status SNOMED Code Problem On home oxygen therapy Z99.81 Active 564780951017 Problem Neuropathy G62.9 Active 050868371 Problem Essential hypertension I10 Active 92687657 Problem Arthritis M19.90 Active 7523355 Problem MRSA (methicillin resistant staph aureus) culture positive Z22.322 Active 718760901 Problem Exertional asthma J45.990 Active 59591098 Problem Snoring R06.83 Active 90335126 Problem History of illicit drug use Z87.898 Active 532937742 Problem Major depressive disorder, recurrent episode, moderate F33.1 Active 730266886 Problem 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 Active 38894474 Problem COPD (chronic obstructive pulmonary disease) with chronic bronchitis J44.9 Active 394471545 Problem COPD exacerbation J44.1 Active 053083472 Problem Agoraphobia 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 Active 71908766 Problem Dysthymic disorder F34.1 Active 82089272 Problem Impaired circulation I99.9 Active 29122824 Problem Panic disorder without agoraphobia F41.0 Active 00519437 Problem Upper respiratory tract infection, unspecified type J06.9 Active 88854534 Problem Mild persistent asthma without complication J45.30 Active 320964150 Problem Fatigue R53.83 Active 42090675 Problem Other chronic pain G89.29 Active 92734953 Problem Varicose veins of both lower extremities I83.93 Active 40846852 Problem Mild chronic obstructive pulmonary disease J44.9 Active 035127404 ALLERGIES Substance Reaction Event Type Date Status Sulfamethoxazole-Trimethoprim Unknown Drug Allergy May, Active Codeine Phosphate swelling Drug Allergy May, Active ENCOUNTERS Encounter Location Date Diagnosis [facility] [place] [id number] [place] [address] May, [place] [address] [address] May, [place] [address] [address] May, BMI 45.0-49.9, adult Z68.42 ; Well woman exam with routine gynecological exam Z01.419 and Breast cancer screening Z12.[address] [address] Apr, Arthritis M19.[address] [address] 16 Apr, 2018 Arthritis M19.90 and Otalgia of both ears H92.[address] [address] Feb, [place] [address] [address] 28 Feb, 2018 Low back pain M54.5 ; Other chronic pain G89.29 ; Exertional asthma J45.990 and Encounter for immunization Z23 [place] [id number] [place] [address] Feb, Skin fissures R23.4 ; Neuropathy G62.9 and Onychomycosis B35.1 [place] [id number] [place] [address] 05 Feb, 2018 Dysthymic disorder F34.1 [place] [address] [address] 04 Feb, 2018 [place] [id number] [place] [address] Jan, [place] [id number] [place] [address] Jan, Abrasion of right elbow, initial encounter S50.311A ; Abrasion, right knee, initial encounter S80.211A and Sprain of other ligament of right ankle, initial encounter S93.491A [facility] [place] [id number] [place] [address] Jan, [facility] [id number] [place] [address] Jan, Injury of left ankle, initial encounter S99.912A ; Fall down stairs, initial encounter W10.8XXA and BMI 45.0-49.9, adult Z68.42 [facility] [place] [address] [address] Jan, COPD exacerbation J44.1 [place] [address] [address] Jan, Dysfunction of both eustachian 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 [place] [address] [address] 08 Jan, 2018 Bronchitis J40 and Acute suppurative otitis media of left ear without spontaneous rupture of tympanic membrane, recurrence not specified H66.002 [place] [id number] [place] [address] Jan, [place] [id number] [place] [address] Jan, Bronchitis J40 and BMI 40.0-44.9, adult Z68.41 [facility] [place] [id number] [place] [address] Jan, [place] [address] [address] Dec, Gastric pain R10.9 [place] [id number] [place] [address] Dec, [place] [address] [address] Dec, History of illicit drug use Z87.898 ; Neuropathy G62.9 ; COPD (chronic obstructive pulmonary disease) with chronic bronchitis J44.9 and Acute pain of right knee M25.561 [place] [address] [address] Nov, [place] [address] [address] Nov, Onychomycosis B35.1 and Contusion of left foot, subsequent encounter S90.32XD [place] [address] [address] Nov, COPD exacerbation J44.1 [place] [address] [address] Sep, [place] [address] [address] Sep, Dysthymic disorder F34.1 ; Tobacco abuse Z72.0 ; Pain in right knee M25.561 ; Pain in left knee M25.562 ; Other chronic pain G89.29 and BMI 40.0- 44.9, adult Z68.41 [place] [address] [address] Aug, Major depressive disorder, recurrent episode, moderate F33.1 and 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 [place] [address] [address] Aug, Dysthymic disorder F34.1 ; Non-pressure chronic ulcer of left thigh, unspecified ulcer stage L97.129 ; Tobacco abuse Z72.0 ; Mild chronic obstructive pulmonary disease J44.9 and Forgetfulness R68.89 [place] [id number] [place] [address] 09 Aug, 2017 Onychomycosis B35.1 ; Fissure in skin of foot R23.4 and Foot callus L84 [facility] [id number] [place] [address] Jul, Right medial knee pain M25.561 ; Upper respiratory tract infection, unspecified type J06.9 and BMI 40.0-44.9, adult Z68.41 [facility] [id number] [place] [address] Jul, Nausea and vomiting, intractability of vomiting not specified, unspecified vomiting type R11.2 ; Left ear pain H92.02 and Gastric pain R10.9 [facility] [place] [id number] [place] [address] Apr, Encounter for immunization Z23 [place] [address] [address] Apr, Onychomycosis B35.1 ; Xerosis of skin L85.3 ; Neuropathy G62.9 and 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 [facility] [place] [id number] [place] [address] Jan, Onychomycosis B35.1 and Neuropathy G62.9 [facility] [place] [id number] [place] [address] Dec, [place] [id number] [place] [address] Dec, [facility] [place] [id number] [place] [address] Nov, [facility] [place] [id number] [place] [address] Aug, [facility] [place] [id number] [place] [address] Aug, [facility] [place] [id number] [place] [address] Jul, [facility] [place] [id number] [place] [address] Jul, [facility] [place] [address] [address] 17 Jul, 2016 Decubitus ulcer of left thigh, stage 2 L89.892 [facility] [place] [address] [address] 17 Jul, 2016 Decubitus ulcer of left thigh, stage 2 L89.892 [facility] [place] [address] [place] [address] 17 Jul, 2016 [facility] [place] [id number] [place] [address] 15 Jul, 2016 Decubitus ulcer of left thigh, stage 2 L89.892 [facility] [place] [id number] [place] [address] 14 Jul, 2016 [facility] [place] [id number] [place] [address] 13 Jul, 2016 Cellulitis of other specified site L03.818 ; Illicit drug use F19.90 and Decubitus ulcer of left thigh, stage 2 L89.892 [facility] [place] [id number] [place] [address] 08 Jul, 2016 [facility] [place] [address] [address] 06 Jul, 2016 Cellulitis of right breast N61.0 [facility] [place] [address] [address] Jun, [facility] [place] [id number] [place] [address] Jun, [facility] [place] [id number] [place] [address] Jun, Wheezing R06.2 and Arthralgia, unspecified joint M25.50 [facility] [place] [id number] [place] [address] May, [facility] [place] [id number] [place] [address] May, [facility] [place] [id number] [place] [address] May, [facility] [place] [id number] [place] [address] 05 May, 2016 Shortness of breath R06.02 [facility] [place] [id number] [place] [address] 02 May, 2016 Onychomycosis B35.1 and Fissure in skin of foot R23.4 [facility] [place] [id number] [place] [address] 28 Apr, 2016 [facility] [id number] [place] [address] 18 Apr, 2016 Dizziness R42 [facility] [place] [id number] [place] [address] 14 Apr, 2016 Shortness of breath R06.02 ; Essential hypertension I10 ; Dizziness R42 and On home oxygen therapy Z99.81 [facility] [place] [id number] [place] [address] Apr, [facility] [place] [id number] [place] [address] 08 Apr, 2016 [facility] [place] [id number] [place] [address] Apr, [facility] [place] [id number] [place] [address] Apr, [facility] [place] [id number] [place] [address] Apr, [facility] [place] [id number] [place] [address] Apr, [facility] [place] [id number] [place] [address] Apr, [facility] [place] [address] [address] Mar, Mild chronic obstructive pulmonary disease J44.9 [facility] [place] [id number] [place] [address] Mar, [facility] [place] [id number] [place] [address] Mar, Epigastric pain R10.13 ; Low back pain M54.5 ; Other chronic pain G89.29 and Breast cancer screening Z12.39 [facility] [place] [id number] [place] [address] Mar, [facility] [place] [id number] [place] [address] Mar, [facility] [place] [id number] [place] [address] Feb, [facility] [place] [id number] [place] [address] Feb, [facility] [place] [id number] [place] [address] Feb, Fissure in skin of foot R23.4 and Onychomycosis B35.1 [place] [address] [address] Jan, 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 [place] [id number] [place] [address] Dec, Agoraphobia 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 [place] [id number] [place] [address] Dec, Mild persistent asthma without complication J45.30 ; Dysthymic disorder F34.1 and Upper respiratory tract infection, unspecified type J06.9 [facility] [place] [address] [address] Nov, 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 [place] [id number] [place] [address] October, 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 [place] [id number] [place] [address] Sep, Panic disorder without agoraphobia F41.0 ; Agoraphobia 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 and Dysthymic disorder F34.1 [place] [id number] [place] [address] Sep, Panic attacks F41.0 [place] [id number] [place] [address] Sep, [place] [id number] [place] [address] Sep, Panic disorder without agoraphobia F41.0 ; Varicose veins of both lower extremities I83.93 and Fatigue R53.83 [place] [id number] [place] [address] Sep, Fatigue R53.83 [place] [id number] [place] [address] Sep, [place] [id number] [place] [address] Aug, [place] [id number] [place] [address] Aug, [place] [id number] [place] [address] Aug, 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 [place] [id number] [place] [address] Aug, Panic disorder without agoraphobia F41.0 ; Agoraphobia 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 and Dysthymic disorder F34.1 [place] [id number] [place] [address] Aug, Shortness of breath R06.02 ; Panic attacks F41.0 ; COPD (chronic obstructive pulmonary disease) J44.9 ; Tobacco abuse Z72.0 ; Family history of diabetes mellitus Z83.3 and Weight gain R63.5 [place] [id number] [place] [address] Aug, [place] [address] [address] Jul, [place] [address] [address] Jun, Onychomycosis B35.1 ; Neuropathy G62.9 and Impaired circulation I99.[address] [address] Mar, Fissure in skin of foot R23.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1 and Skin fissures 709.8 [place] [address] [address] Sep, [place] [address] [place] [address] Sep, [facility] [place] [facility] [address] [id number] [place] [address] Aug, [facility] [place] [facility] [address] [id number] [place] [address] Aug, [facility] [place] [facility] [address] [id number] [place] [address] Jul, [facility] [place] [facility] [address] [id number] [place] [address] Jul, [facility] [place] [facility] [address] [id number] [place] [address] Jun, [facility] [place] [facility] [address] [id number] [place] [address] Jun, [facility] [place] [facility] [address] [id number] [place] [address] Jun, [facility] [place] [facility] [address] [id number] [place] [address] Jun, [facility] [place] [facility] [address] [id number] [place] [address] Jun, [facility] [place] [facility] [address] [facility] [id number] [place] [address] May, [facility] [place] [facility] [address] [id number] [place] [address] May, [facility] [place] [facility] [address] [id number] [place] [address] May, [facility] [place] [facility] [address] [id number] [place] [address] May, [facility] [place] [facility] [address] [id number] [place] [address] May, [facility] [place] [facility] [address] [id number] [place] [address] May, [facility] [place] [facility] [address] [id number] [place] [address] May, [facility] [place] [facility] [address] [id number] [place] [address] May, [facility] [place] [facility] [address] [id number] [place] [address] Apr, [facility] [place] [facility] [address] [id number] [place] [address] Apr, [facility] [place] [facility] [address] [id number] [place] [address] Apr, [facility] [place] [facility] [address] [id number] [place] [address] Apr, [facility] [place] [facility] [address] [id number] [place] [address] Apr, [facility] [place] [facility] [address] [id number] [place] [address] Apr, [facility] [place] [facility] [address] [id number] [place] [address] Apr, [facility] [place] [facility] [address] [id number] [place] [address] Apr, [facility] [place] [facility] [address] [id number] [place] [address] Apr, [facility] [place] [facility] [address] [id number] [place] [address] Apr, [facility] [place] [facility] [address] [id number] [place] [address] Mar, [facility] [place] [facility] [address] [id number] [place] [address] Mar, [facility] [place] [facility] [address] [id number] [place] [address] Mar, [facility] [place] [facility] [address] [id number] [place] [address] Mar, [facility] [place] [facility] [address] [id number] [place] [address] Mar, [facility] [place] [facility] [address] [id number] [place] [address] Mar, [facility] [place] [facility] [address] [id number] [place] [address] Mar, [facility] [place] [facility] [address] [id number] [place] [address] Mar, [facility] [place] [facility] [address] [id number] [place] [address] Mar, [facility] [place] [facility] [address] [id number] [place] [address] Mar, [facility] [place] [facility] [address] [id number] [place] [address] Mar, [facility] [place] [facility] [address] [id number] [place] [address] Mar, [facility] [place] [facility] [address] [id number] [place] [address] Mar, [facility] [place] [facility] [address] [id number] [place] [address] Mar, [facility] [place] [facility] [address] [id number], [place] [address] Mar, [facility] [place] [facility] [address] [id number], [place] [address] Mar, [facility] [place] [facility] [address] [id number] [place] [address] Mar, [facility] [place] [facility] [address] [id number] [place] [address] Mar, [facility] [place] [facility] [address] [id number] [place] [address] 16 Mar, 2014 [facility] [place] [facility] [address] [id number] [place] [address] 15 Mar, 2013 [facility] [place] [facility] [address] [id number] [place] [address] 14 Mar, 2013 [facility] [place] [facility] [address] [id number] [place] [address] 14 Mar, 2013 [facility] [place] [facility] [address] [id number] [place] [address] 14 Mar, 2013 [facility] [place] [facility] [address] [id number] [place] [address] 14 Mar, 2013 [facility] [place] [facility] [address] [id number] [place] [address] 09 Mar, 2013 [facility] [place] [facility] [address] [id number] [place] [address] 09 Mar, 2013 [facility] [place] [facility] [address] [id number] [place] [address] 09 Mar, 2013 [facility] [place] [facility] [address] [id number] [place] [address] 09 Mar, 2013 [facility] [place] [facility] [address] [id number] [place] [address] 30 Feb, 2013 [facility] [place] [facility] [address] [id number] [place] [address] 30 Sep, 2013 [facility] [place] [facility] [address] [id number] [place] [address] 30 Sep, 2013 [facility] [place] [facility] [address] [id number] [place] [address] 30 Sep, 2013 [facility] [place] [facility] [address] [id number] [place] [address] 26 Sep, 2013 [facility] [place] [facility] [address] [id number] [place] [address] 26 Sep, 2013 [facility] [place] [facility] [address] [id number] [place] [address] 09 Sep, 2013 [facility] [place] [facility] [address] [id number] [place] [address] Feb, 2013 [facility] [place] [facility] [address] [id number] [place] [address] Feb, 2013 [facility] [place] [facility] [address] [id number] [place] [address] Feb, 2013 [facility] [place] [facility] [address] [id number] [place] [address] Feb, 2013 [facility] [place] [facility] [address] [id number] [place] [address] Feb, 2013 [facility] [place] [facility] [address] [id number] [address] Jan, [facility] [place] [facility] [address] [id number] [place] [address] Jan, [facility] [place] [facility] [address] [id number] [place] [address] Jan, [facility] [place] [facility] [address] [id number] [place] [address] Jan, [facility] [place] [facility] [address] [id number] [place] [address] Jan, [facility] [place] [facility] [address] [id number] [place] [address] Jan, [facility] [place] [facility] [address] [id number] [place] [address] Jan, [facility] [place] [facility] [address] [id number] [place] [address] Jan, [facility] [place] [facility] [address] [id number] [place] [address] Jan, [facility] [place] [facility] [address] [id number] [place] [address] Jan, [facility] [place] [facility] [address] [id number], [place] [address] Jan, [facility] [place] [facility] [address] [id number] [place] [address] Jan, [facility] [place] [facility] [address] [id number] [place] [address] Jan, [facility] [place] [facility] [address] [id number] [place] [address] Dec, [facility] [place] [facility] [address] [id number] [place] [address] Dec, [facility] [place] [facility] [address] [id number] [place] [address] Dec, [facility] [place] [facility] [address] [id number] [place] [address] Dec, [facility] [place] [facility] [address] [id number] [place] [address] Dec, [facility] [place] [facility] [address] [id number] [place] [address] Dec, [facility] [place] [facility] [address] [id number] [place] [address] Dec, [facility] [place] [facility] [address] [id number] [place] [address] Dec, [facility] [place] [facility] [address] [id number] [place] [address] Dec, [facility] [place] [facility] [address] [id number] [place] [address] Dec, [facility] [place] [facility] [address] [id number] [place] [address] Dec, [facility] [place] [facility] [address] [id number] [place] [address] Dec, [facility] [place] [facility] [address] [id number] [place] [address] Dec, [facility] [place] [facility] [address] [id number] [place] [address] Dec, 2013 [facility] [place] [facility] [address] [id number] [place] [address] Dec, 2013 [facility] [place] [facility] [address] [id number] [place] [address] Dec, 2013 [facility] [place] [facility] [address] [id number] [place] [address] Dec, [facility] [place] [facility] [address] [id number] [place] [address] Dec, [facility] [place] [facility] [address] [id number] [place] [address] Nov, [facility] [place] [facility] [address] [id number] [place] [address] Nov, [facility] [place] [facility] [address] [id number] [place] [address] Nov, [facility] [place] [facility] [address] [id number] [place] [address] Nov, [facility] [place] [facility] [address] [id number] [place] [address] Nov, [facility] [place] [facility] [address] [id number] [place] [address] Nov, [facility] [place] [facility] [address] [id number] [place] [address] Nov, [facility] [place] [facility] [address] [id number] [place] [address] Nov, [facility] [place] [facility] [address] [id number] [place] [address] Nov, [facility] [place] [facility] [address] [id number] [place] [address] Nov, [facility] [place] [facility] [address] [id number] [place] [address] Nov, [facility] [place] [facility] [address] [id number] [place] [address] Nov, [facility] [place] [facility] [address] [id number] [place] [address] Nov, [facility] [place] [facility] [address] [id number] [place] [address] Nov, [facility] [place] [facility] [address] [id number] [place] [address] Nov, [facility] [place] [facility] [address] [id number] [place] [address] Nov, [facility] [place] [facility] [address] [id number] [place] [address] Nov, [facility] [place] [facility] [address] [id number] [place] [address] Nov, [facility] [place] [facility] [address] [id number] [place] [address] Nov, [facility] [place] [facility] [address] [id number] [place] [address] Nov, [facility] [place] [facility] [address] [id number] [place] [address] October, [facility] [place] [facility] [address] [id number] [place] [address] October, [facility] [place] [facility] [address] [id number], [place] [address] October, [facility] [place] [facility] [address] [id number] [place] [address] October, [facility] [place] [facility] [address] [id number] [place] [address] Sep, [facility] [place] [facility] [address] [id number] [place] [address] Sep, [facility] [place] [facility] [address] [id number] [place] [address] 17 Sep, 2013 [facility] [place] [facility] [address] [id number] [place] [address] 17 Sep, 2013 [facility] [place] [facility] [address] [id number] [place] [address] Sep, [facility] [place] [facility] [address] [id number] [place] [address] Sep, [facility] [place] [facility] [address] [id number] [place] [address] Sep, [facility] [place] [facility] [address] [id number] [place] [address] Sep, [facility] [place] [facility] [address] [id number] [place] [address] Sep, [facility] [place] [facility] [address] [id number] [place] [address] Aug, [facility] [place] [facility] [address] [id number] [place] [address] Aug, [facility] [place] [facility] [address] [id number] [place] [address] Aug, [facility] [place] [facility] [address] [id number] [place] [address] Aug, [facility] [place] [facility] [address] [id number] [place] [address] Aug, [facility] [place] [facility] [address] [id number] [place] [address] Aug, [facility] [place] [facility] [address] [id number] [place] [address] Aug, [facility] [place] [facility] [address] [id number] [place] [address] Aug, [facility] [place] [facility] [address] [id number] [place] [address] Jul, [facility] [place] [facility] [address] [id number] [place] [address] Jul, [facility] [place] [facility] [address] [id number] [place] [address] Jun, [facility] [place] [facility] [address] [id number] [place] [address] Jun, [facility] [place] [facility] [address] [id number] [place] [address] Jun, [facility] [place] [facility] [address] [id number] [place] [address] Jun, [facility] [place] [facility] [address] [id number] [place] [address] Jun, [facility] [place] [facility] [address] [id number] [place] [address] Jun, [facility] [place] [facility] [address] [id number] [place] [address] Jun, [facility] [place] [facility] [address] [id number] [place] [address] Jun, [facility] [place] [facility] [address] [id number] [place] [address] Jun, [facility] [place] [facility] [address] [id number] [place] [address] Jun, [facility] [place] [facility] [address] [id number], [place] [address] Jun, [facility] [place] [facility] [address] [id number] [place] [address] Jun, [facility] [place] [facility] [address] [id number] [place] [address] May, [facility] [place] [facility] [address] [id number] [place] [address] May, [facility] [place] [facility] [address] [id number], [place] [address] May, [facility] [address] [id number] [place] [address] May, [facility] [place] [facility] [address] [id number] [place] [address] May, [facility] [address] [id number] [place] [address] May, [facility] [place] [facility] [address] [id number] [place] [address] May, [facility] [address] [id number] [place] [address] May, [facility] [place] [facility] [address] [id number] [place] [address] May, [facility] [address] [id number] [place] [address] May, [facility] [place] [facility] [address] [id number] [place] [address] May, [facility] [address] [id number] [place] [address] May, [facility] [place] [facility] [address] [id number] [place] [address] May, [facility] [place] [facility] [address] [id number], [place] [address] Apr, [facility] [place] [facility] [address] [id number], [place] [address] Apr, [facility] [place] [facility] [address] [id number], [place] [address] Mar, [facility] [place] [facility] [address] [id number], [place] [address] Mar, [facility] [place] [facility] [address] [id number] [place] [address] 24 Feb, 2013 [facility] [place] [facility] [address] [id number] [place] [address] Feb, [facility] [address] [id number] [place] [address] Feb, [facility] [place] [facility] [address] [id number] [place] [address] Feb, [facility] [place] [facility] [address] [id number] [place] [address] Jan, [facility] [place] [facility] [address] [id number] [place] [address] Jan, [facility] [place] [facility] [address] [id number] [place] [address] Jan, [facility] [place] [facility] [address] [id number] [place] [address] Jan, [facility] [place] [facility] [address] [id number] [place] [address] Jan, [facility] [place] [facility] [address] [id number] [place] [address] Jan, [facility] [place] [facility] [address] [id number] [place] [address] Dec, [facility] [place] [facility] [address] [id number] [place] [address] Dec, [facility] [place] [facility] [address] [id number] [place] [address] Dec, [facility] [place] [facility] [address] [id number] [place] [address] Dec, [facility] [place] [facility] [address] [id number] [place] [address] Nov, [facility] [place] [facility] [address] [id number] [place] [address] October, [facility] [place] [facility] [address] [id number] [place] [address] October, [facility] [place] [facility] [address] [id number] [place] [address] October, [facility] [place] [facility] [address] [id number] [place] [address] Sep, [facility] [place] [facility] [address] [id number] [place] [address] Sep, [facility] [place] [facility] [address] [id number] [place] [address] Jun, [facility] [place] [facility] [address] [id number] [place] [address] Jun, [facility] [place] [facility] [address] [id number] [place] [address] Jun, [facility] [place] [facility] [address] [id number] [place] [address] Apr, [facility] [place] [facility] [address] [id number], [place] [address] Apr, [facility] [place] [facility] [address] [id number] [place] [address] Apr, [facility] [place] [facility] [address] [id number], [place] [address] Apr, [facility] [place] [facility] [address] [id number], [place] [address] Mar, [facility] [place] [facility] [address] [id number], [place] [address] Mar, [facility] [place] [facility] [address] [id number] [place] [address] Mar, [facility] [place] [facility] [address] [id number], [place] [address] Mar, [facility] [place] [facility] [address] [id number] [place] [address] Feb, [facility] [place] [facility] [address] [id number] [place] [address] 27 Feb, 2012 [facility] [place] [facility] [address] [id number] [place] [address] 20 Feb, 2012 [facility] [place] [facility] [address] [id number] [place] [address] Jan, [facility] [place] [facility] [address] [id number] [place] [address] Jan, [facility] [place] [facility] [address] [id number] [place] [address] Jan, [facility] [place] [facility] [address] [id number] [place] [address] Jan, [facility] [place] [facility] [address] [id number] [place] [address] Dec, [facility] [place] [facility] [address] [id number] [place] [address] Dec, [facility] [place] [facility] [address] [id number] [place] [address] Nov, [facility] [place] [facility] [address] [id number] [place] [address] Nov, [facility] [place] [facility] [address] [id number] [place] [address] October, [facility] [place] [facility] [address] [id number] [place] [address] October, [facility] [place] [facility] [address] [id number] [place] [address] October, [facility] [place] [facility] [address] [id number] [place] [address] Sep, [facility] [place] [facility] [address] [id number] [place] [address] Sep, [facility] [place] [facility] [address] [id number] [place] [address] Sep, [facility] [place] [facility] [address] [id number] [place] [address] 27 Aug, 2011 [facility] [place] [facility] [address] [id number] [place] [address] 26 Aug, 2011 [facility] [place] [facility] [address] [id number] [place] [address] 15 Aug, 2011 [facility] [place] [facility] [address] [id number] [place] [address] 15 Aug, 2011 [facility] [place] [facility] [address] [id number] [place] [address] 07 Aug, 2011 [facility] [place] [facility] [address] [id number] [place] [address] 23 Jul, 2011 [facility] [place] [facility] [address] [id number] [place] [address] 16 Jul, 2011 [facility] [place] [facility] [address] [id number] [place] [address] 13 Jul, 2011 [facility] [place] [facility] [address] [id number] [place] [address] Jul, [facility] [place] [facility] [address] [id number] [place] [address] 07 Jul, 2011 [facility] [place] [facility] [address] [id number] [place] [address] Jul, [facility] [place] [facility] [address] [id number] [place] [address] Jul, [facility] [place] [facility] [address] [id number] [place] [address] Jul, [facility] [place] [facility] [address] [id number] [place] [address] Jun, [facility] [place] [facility] [address] [id number] [place] [address] Jun, [facility] [place] [facility] [address] [id number] [place] [address] 27 May, 2011 [facility] [place] [facility] [address] [id number] [place] [address] May, [facility] [place] [facility] [address] [id number] [place] [address] May, [facility] [place] [facility] [address] [id number] [place] [address] May, [facility] [place] [facility] [address] [id number] [place] [address] Apr, [facility] [place] [facility] [address] [id number] [place] [address] Apr, [facility] [place] [facility] [address] [id number] [place] [address] Apr, [facility] [place] [facility] [address] [id number] [place] [address] Mar, [facility] [place] [facility] [address] [id number] [place] [address] Mar, [facility] [place] [facility] [address] [id number] [place] [address] Mar, [facility] [place] [facility] [address] [facility] [id number] [place] [address] Mar, [facility] [place] [facility] [address] [id number] [place] [address] Dec, [facility] [place] [facility] [address] [id number] [place] [address] October, [facility] [place] [facility] [address] [id number] [place] [address] May, [facility] [place] [facility] [address] [id number] [place] [address] May, [facility] [place] [facility] [address] [facility] [id number] [place] [address] May, [facility] [place] [facility] [id number], [place] [address] May, [facility] [place] [id number], [place] [address] Mar, [facility] [place] [id number], [place] [address] Mar, [facility] [place] [id number] [place] [address] May, [facility] [place] [id number] [place] [address] May, [facility] [place] [id number] [place] [address] May, [facility] [place] [id number] [place] [phone] May, [facility] [place], [facility] [id number] [place] [id number] Apr, [facility] [place], [facility] [id number] [place] [phone] Apr, [facility] [place], [facility] [id number] [phone] October, IMMUNIZATIONS No Known Immunizations SOCIAL HISTORY Never Assessed REASON FOR VISIT Well Woman Exam Christianne Landeros MA, Needs pap PLAN OF CARE Activity Details Follow Up 1 Year or as indicated by labs Reason:WWE Pending Test PAP AND HPV Pending Test Mammogram, Bilateral Screening VITAL SIGNS Height 64 in 2018-05-21 Weight 277.3 lbs 2018-05-21 Temperature 97.6 degrees Fahrenheit 2018-05-21 Heart Rate 90 bpm 2018-05-21 Respiratory Rate 22 2018-05-21 BMI 47.59 kg/m2 2018-05-21 Blood pressure systolic 120 mmHg 2018-05-21 Blood pressure diastolic 68 mmHg 2018-05-21 MEDICATIONS Medication Instructions Dosage Frequency Start Date End Date Duration Status Ventolin HFA 108 (90 Base) MCG/ACT Inhalation every 4 hrs 2 puffs as needed 4h Dec, 90 days Active Nabumetone 500 MG Orally Twice a day 1 tablet 12h 16 Apr, 2018 30 day(s) Active Oxygen ... 2L with nasal cannula Active Simvastatin 40 mg Orally Once a day 1 tablet in the evening 24h 30 Active Albuterol Sulfate (2.5 mg/3ml) 0.083% Inhalation every 6 hrs 3 ml as needed 6h Active Quinapril HCl 20 mg Orally Once a day 2 tablets 24h Active HydrOXYzine HCl 50 MG Orally 2 times a day 1 tablet 12h 30 days Active Estradiol 0.5 MG Orally Once a day 1 tablet 24h Active Omeprazole 20 MG Orally Once a day 1 capsule 24h 90 Active Gabapentin 300 MG Orally Three times a day 1 capsule 8h 30 Active Montelukast Sodium 10 MG Orally Once a day 1 tablet in the evening 24h 90 days Active Toviaz 4 MG Orally Once a day 1 tablet 24h Active Nebulizer - as directed for use with inhaled medications Mar, lifetime Active Guaifenesin 400 mg Orally every 4 hrs 1 tablet as needed 4h 20 Jan, 2018 Active Ropinirole HCl 0.5 MG Orally Once a day 1 tablet 1 to 3 hours before bedtime 24h 30 Active Nitrofurantoin Monohyd Macro 100 mg Orally Once a day 1 capsule with supper 24h Active Symbicort 160-4.5 MCG/ACT Inhalation Twice a day 2 puffs 12h 16 Jun, 2018 90 days Active Fluoxetine HCl 20 mg Orally Once a day 1 capsule in the morning 24h 14 Aug, 2017 90 days Active Cyclobenzaprine HCl 10 mg Orally Three times a day 1 tablet as needed for spasms 8h 30 Active Spiriva HandiHaler 18 MCG Inhalation Once a day 1 capsule 24h 28 Feb, 2018 Active Ranitidine HCl 150 MG Orally 2 times a day 1 tablet 12h 30 Active RESULTS No Results PROCEDURES Procedure Date Ordered Result Body Site SPECIMEN HANDLING May 21, 2018 INSTRUCTIONS MEDICATIONS ADMINISTERED No Known [...]
[2019-01-13] MEDS ORDERED: NS IV 500 ML 500 ML ONE (10:35)
[2019-01-13] MEDS ORDERED: RT-ALBUTEROL SULF 2.5 MG/3 ML PRE-MIX VIAL INH STA ×2 (10:43→11:45)
[2019-01-13] MEDS ORDERED: NS IV 500 ML 500 ML IV ONE (10:43)
[2019-01-13] MEDS ORDERED: ACETAMINOPHEN 500 MG TAB (TYLENOL) PO PRN (10:45)
[2019-01-13] MEDS ORDERED: RT-ALBUTEROL/IPRATROPIUM 3 ML (DUONEB) VIAL INH ONE (10:45)
[2019-01-13 10:48] LABS: BASOPHILS % (AUTO) 0 % (0-10); EOSINOPHILS % (AUTO) 0 % (0-10); HEMATOCRIT 40 % (35-52); HEMOGLOBIN 12.3 G/DL (11.5-16.0); LYMPHOCYTES # (AUTO) 1.4 X 10^3 (1.0-4.0); LYMPHOCYTES % (AUTO) 8 % (12-44); MEAN CORPUSCULAR HEMOGLOBIN 28 PG (25-34); MEAN CORPUSCULAR HGB CONC 31 G/DL (32-36); MEAN CORPUSCULAR VOLUME 92 FL (80-99); MEAN PLATELET VOLUME 10.5 FL (7.4-10.4); MONOCYTES # (AUTO) 1.5 X 10^3 (0.0-1.0); MONOCYTES % (AUTO) 8 % (0-12); NEUTROPHILS # (AUTO) 15.9 X 10^3 (1.8-7.8); NEUTROPHILS % (AUTO) 84 % (42-75); PLATELET COUNT 194 10^3/uL (130-400); RED CELL DISTRIBUTION WIDTH 15.1 % (10.0-14.5); WHITE BLOOD COUNT 18.9 10^3/uL (4.3-11.0)
--- NOTE | 2019-01-13 10:48 | ED General ---
General Chief Complaint: Coughing up blood Stated Complaint: SPITTING UP BLOOD Nursing Triage Note: Pt ambulates to Rm 3 with complaints of coughing up blood since yesterday. Pt reports blood was a light red yesterday around 1600 and is now dark red. Pt was short of air (81%) upon arrival without wearing O2 and reports she wears 2L NC at home so I put her on 2L and is now 93%. Nursing Sepsis Screen: Possible Sepsis Risk Source of Information: Patient Exam Limitations: No Limitations History of Present Illness Date Seen by Provider: Jan 13, 2019 Time Seen by Provider: 10:35 Initial Comments Here with report of 2 days of cough and has coughed up some sputum that appears to be blood tinged and that seems to be getting worse per her. Arrives with O2 sat 81% on room air. She normally wears 2 L via nasal cannula. That did improve her O2 saturations. She is quite dyspneic and also noted to be febrile. She reports sore throat and runny nose as well as the cough. Runny nose and cough are her main complaints. Overall, states she feels weak and tired and not well. Does complain of some typical swelling of her feet but not worsened normal. Timing/Duration: 2-3 Days Severity: Moderate Associated Systoms: No Chest Pain; Cough, Fever/Chills; No Nausea/Vomiting; Shortness of Air, Weakness Allergies and Home Medications Allergies Coded Allergies: codeine (Unverified Allergy, Severe, ANAPHYLAXIS BUT PT CAN TAKE MORPHINE, 11/11/14) sulfamethoxazole (Unverified Allergy, Severe, 03/04/14) "STROKE-LIKE" SYMPTOMS trimethoprim (Unverified Allergy, Severe, 03/04/14) "STROKE-LIKE" SYMPTOMS venom-honey bee (Unverified Allergy, Unknown, 09/16/14) Home Medications Albuterol Sulfate 18 Gm Hfa.aer.ad, 2 PUFF INH TID PRN for SHORTNESS OF BREATH, (Reported) Aspirin 81 Mg Tablet.dr, 81 MG PO DAILY, (Reported) Budesonide/Formoterol Fumarate 10.2 Gm Hfa.aer.ad, 2 PUFF INH BID, (Reported) Cyclobenzaprine HCl 10 Mg Tablet, 10 MG PO BID PRN for SPASMS, (Reported) Estradiol 0.5 Mg Tablet, 0.5 MG PO HS, (Reported) Fesoterodine Fumarate 4 Mg Tab.sr.24h, 4 MG PO BID, (Reported) Fluoxetine HCl 20 Mg Capsule, 20 MG PO DAILY, (Reported) Gabapentin 300 Mg Capsule, 300 MG PO TID, (Reported) Hydroxyzine Pamoate 50 Mg Capsule, 50 MG PO BID, (Reported) Meloxicam 7.5 Mg Tablet, 7.5 MG PO DAILY, (Reported) Montelukast Sodium 10 Mg Tablet, 10 MG PO HS, (Reported) Nitrofurantoin Macrocrystal 100 Mg Capsule, 100 MG PO DAILY, (Reported) Omeprazole 20 Mg Tablet.dr, 20 MG PO DAILY, (Reported) Ondansetron 4 Mg Tab.rapdis, 4 MG SL Q4H PRN for NAUSEA/VOMITING-1ST LINE Prescribed by: GERMAN VALDES on 07/19/172046 Quinapril HCl 20 Mg Tablet, 20 MG PO BID, (Reported) Ranitidine HCl 150 Mg Tablet, 150 MG PO BID, (Reported) Ropinirole HCl 0.5 Mg Tablet, 0.5 MG PO HS, (Reported) Simvastatin 40 Mg Tablet, 40 MG PO DAILY, (Reported) Patient Home Medication List Home Medication List Reviewed: Yes Review of Systems Review of Systems Constitutional: see HPI, chills, fever, malaise EENTM: nose congestion, throat pain Respiratory: cough, hemoptysis, phlegm, short of breath Cardiovascular: No chest pain; edema; No palpitations Gastrointestinal: No abdominal pain, No nausea, No vomiting Genitourinary: no symptoms reported Musculoskeletal: No muscle pain; muscle weakness Skin: no symptoms reported Psychiatric/Neurological: No Symptoms Reported All Other Systems Reviewed Negative Unless Noted: Yes Past Qpmqdxa-Qayptz-Chfyky Hx Past Med/Social Hx: Reviewed Nursing Past Med/Soc Hx Patient Social History Alcohol Use: Denies Use Drug of Choice: meth Smoking Status: Current Everyday Smoker Type Used: Cigarettes 2nd Hand Smoke Exposure: Yes Recent Foreign Travel: No Contact w/Someone Who Travel: No Recent Infectious Disease Expo: No Recent Hopitalizations: No Immunizations Up To Date Tetanus Booster (TDap): Unknown Date of Pneumonia Vaccine: Feb 11, 2012 Date of Influenza Vaccine: Mar 12, 2018 Seasonal Allergies Seasonal Allergies: No Past Medical History Surgeries: Yes (RIGHT TKR, LEFT KNEE SCOPE, HEART CATH, LEFT SHOULDER SCOPE, BILAT CTR) Hysterectomy, Orthopedic Respiratory: Yes (02 AT NIGHT AND PRN) Asthma, Sleep Apnea, COPD Cardiac: Yes (negative heart catheter 2013, negative stress test 2017) High Cholesterol, Hypertension Neurological: No Reproductive Disorders: No (HYTERECTOMY) Female Reproductive Disorders: Denies [employer] History: Hysterectomy Sexually Transmitted Disease: No HIV/AIDS: No Genitourinary: Yes Bladder Infection, Neurogenic Bladder Gastrointestinal: Yes Gastroesophageal Reflux Musculoskeletal: Yes (BACK PROBLEMS) Degenerate Disk Disease, Arthritis, Chronic Back Pain Endocrine: No HEENT: Yes Cataract Loss of Vision: Denies Hearing Impairment: Denies Cancer: No Psychosocial: Yes Anxiety Integumentary: Yes Psoriasis Blood Disorders: No Adverse Reaction/Blood Tranf: No (N/A) Family Medical History Reviewed Nursing Family Hx Patient reports no known family medical history. No Pertinent Family Hx Physical Exam-Suspected Sepsis Physical Exam Vital Signs Vital Signs - First Documented 01/13/19 10:27 Temp 101.8 Pulse 98 Resp 22 B/P (MAP) 130/83 (99) Pulse Ox 94 O2 Delivery Nasal Cannula O2 Flow Rate 2.00 Capillary Refill : Less Than 3 Seconds Blood Pressure Mean: 99 Height, Weight, BMI Height: 5'3.00" Weight: 309lbs. 0.0oz. [id number]; 48.7 BMI Method:Stated General Appearance: WD/WN, Mild Distress, Obese HEENT: PERRL/EOMI, Pharyngeal Erythema Neck: Non Tender, Supple Respiratory: Decreased Breath Sounds, Expiration, Respiratory Distress (mild tachypnea), Wheezing Cardiovascular: No Murmur, Tachycardia Gastrointestinal: Non Tender, Soft, Other (obese) Back: Normal Inspection, No CVA Tenderness, No Vertebral Tenderness Extremity: Normal Range of Motion, Non Tender, Pedal Edema (1+ to ankles bilaterally) Neurologic/Psychiatric: Alert, Oriented x3 Skin: normal color, warm/dry Focused Exam Lactate Level 01/13/19 10:36: Lactic Acid Level 1.33 Lactic Acid Level Laboratory Tests Test 01/13/19 10:36 Lactic Acid Level 1.33 MMOL/L (0.50-2.00) Progress/Results/Core Measures Suspected Sepsis Recent Fever Within 48 Hours: Yes Infection Criteria Present: Suspected New Infection New/Unexplained Altered Menta: No Sepsis Screen: Possible Sepsis Risk SIRS Temperature:101.8 Pulse: 98 Respiratory Rate: 22 Laboratory Tests 01/13/19 10:36: White Blood Count 18.9H Blood Pressure 130 /83 Mean: 99 01/13/19 10:36: Lactic Acid Level 1.33 Laboratory Tests 01/13/19 10:36: Creatinine 1.02, INR Comment 1.1, Platelet Count 194, Total Bilirubin 0.5 Results/Orders Lab Results Laboratory Tests Test 01/13/19 10:36 01/13/19 10:57 01/13/19 11:50 Range/Units White Blood Count 18.9 H 4.3-11.0 10^3/uL Red Blood Count 4.35 4.35-5.85 10^6/uL Hemoglobin 12.3 11.5-16.0 G/DL Hematocrit 40 35-52 % Mean Corpuscular Volume 92 80-99 FL Mean Corpuscular Hemoglobin 28 25-34 PG Mean Corpuscular Hemoglobin Concent 31 L 32-36 G/DL Red Cell Distribution Width 15.1 H 10.0-14.5 % Platelet Count 194 130-400 10^3/uL Mean Platelet Volume 10.5 H 7.4-10.4 FL Neutrophils (%) (Auto) 84 H 42-75 % Lymphocytes (%) (Auto) 8 L 12-44 % Monocytes (%) (Auto) 8 0-12 % Eosinophils (%) (Auto) 0 0-10 % Basophils (%) (Auto) 0 0-10 % Neutrophils # (Auto) 15.9 H 1.8-7.8 X 10^3 Lymphocytes # (Auto) 1.4 1.0-4.0 X 10^3 Monocytes # (Auto) 1.5 H 0.0-1.0 X 10^3 Eosinophils # (Auto) 0.0 0.0-0.3 10^3/uL Basophils # (Auto) 0.0 0.0-0.1 10^3/uL Neutrophils % (Manual) 83 % Lymphocytes % (Manual) 9 % Monocytes % (Manual) 5 % Eosinophils % (Manual) 0 % Basophils % (Manual) 0 % Band Neutrophils 3 % Anisocytosis SLIGHT Prothrombin Time 14.2 12.2-14.7 SEC INR Comment 1.1 0.8-1.4 Activated Partial Thromboplast Time 32 24-35 SEC Sodium Level 139 135-145 MMOL/L Potassium Level 3.9 3.6-5.0 MMOL/L Chloride Level 105 98-107 MMOL/L Carbon Dioxide Level 25 21-32 MMOL/L Anion Gap 9 5-14 MMOL/L Blood Urea Nitrogen 20 H 7-18 MG/DL Creatinine 1.02 0.60-1.30 MG/DL Estimat Glomerular Filtration Rate 56 BUN/Creatinine Ratio 20 Glucose Level 140 H 70-105 MG/DL Lactic Acid Level 1.33 0.50-2.00 MMOL/L Calcium Level 9.0 8.5-10.1 MG/DL Corrected Calcium 9.5 8.5-10.1 MG/DL Total Bilirubin 0.5 0.1-1.0 MG/DL Aspartate Amino Transf (AST/SGOT) 11 5-34 U/L Alanine Aminotransferase (ALT/SGPT) 13 0-55 U/L Alkaline Phosphatase 81 40-136 U/L Total Protein 7.1 6.4-8.2 GM/DL Albumin 3.4 3.2-4.5 GM/DL Blood Gas Puncture Site R RAD Blood Gas Patient Temperature 101.8 Arterial Blood pH 7.32 *L 7.37-7.43 Arterial Blood Partial Pressure CO2 57 H 35-45 MMHG Arterial Blood Partial Pressure O2 35 *L 79-93 MMHG Arterial Blood HCO3 28 H 23-27 MMOL/L Arterial Blood Total CO2 29.8 21.0-31.0 MMOL/L Arterial Blood Oxygen Saturation 54 L 94-100 % Arterial Blood Base Excess 3.0 H -2.5-2.5 MMOL/L Deshaun Test YES-POS Blood Gas Ventilator Setting NO Blood Gas Inspired Oxygen 22 Urine Color YELLOW Urine Clarity VERY CLOUDY H Urine pH 8 5-9 Urine Specific [place] 1.015 L 1.016-1.022 Urine Protein NEGATIVE NEGATIVE Urine Glucose (UA) NEGATIVE NEGATIVE Urine Ketones NEGATIVE NEGATIVE Urine Nitrite NEGATIVE NEGATIVE Urine Bilirubin NEGATIVE NEGATIVE Urine Urobilinogen 1 NORMAL MG/DL Urine Leukocyte Esterase 2+ H NEGATIVE Urine RBC (Auto) 3+ H NEGATIVE Urine RBC 10-25 H /HPF Urine WBC 2-5 /HPF Urine Squamous Epithelial Cells 5-10 /HPF Urine Crystals PRESENT H /LPF Urine Amorphous Sediment FEW KINZA PHOSPHATE H /LPF Urine Bacteria MODERATE H /HPF Urine Casts NONE /LPF Urine Mucus NEGATIVE /LPF Urine Culture Indicated CULTURE PENDING My Orders Orders - JUANA GODWIN MD Cbc With Automated Diff (01/13/19 10:38) Comprehensive Metabolic Panel (01/13/19 10:38) Blood Culture (01/13/19 10:38) Sputum Culture (01/13/19 10:38) Urinalysis (01/13/19 10:38) Urine Culture (01/13/19 10:38) Protime With Inr (01/13/19 10:38) Partial Thromboplastin Time (01/13/19 10:38) Chest 1 View, Ap/Pa Only (01/13/19 10:38) Acetaminophen Tablet (Tylenol Tablet) (01/13/19 10:45) Ed Iv/Invasive Line Start (01/13/19 10:38) Ed Iv/Invasive Line Start (01/13/19 10:38) Vital Signs Adult Sepsis Patie Q15M (01/13/19 10:38) O2 (01/13/19 10:38) Remove Rings In Anticipation O (01/13/19 10:38) Lactic Acid Analyzer (01/13/19 10:38) Ns Iv 500 Ml (Sodium Chloride 0.9%) (01/13/19 10:35) Ed Iv/Invasive Line Start (01/13/19 10:43) Ns Iv 500 Ml (Sodium Chloride 0.9%) (01/13/19 10:43) Albuterol Pre-Mix Nebs (Rt) (Proventil (01/13/19 10:43) Albuterol/Ipra Inhalation Soln (Duoneb I (01/13/19 10:45) Svn Small Volume Nebulizer (01/13/19 10:43) Svn Small Volume Nebulizer (01/13/19 10:43) Manual Differential (01/13/19 10:36) Arterial Blood Gas (01/13/19 10:56) Ceftriaxone For Iv Use (Rocephin For I (01/13/19 11:45) Albuterol Pre-Mix Nebs (Rt) (Proventil (01/13/19 11:45) Svn Small Volume Nebulizer (01/13/19 11:45) Methylprednisolone Sod Succ (Solu-Medrol (01/13/19 11:45) Medications Given in ED Current Medications Medications Dose Ordered Sig/Alfred Route Start Time Stop Time Status Last Admin Dose Admin Acetaminophen 1,000 mg ONCE PRN PO 01/13/19 10:45 01/13/19 10:45 DC 01/13/19 10:43 1,000 MG Albuterol/ Ipratropium 3 ml ONCE ONCE INH 01/13/19 10:45 01/13/19 10:46 DC 01/13/19 11:37 3 ML Ceftriaxone Sodium 1000 mg/ Sterile Water 10 ml @ 200 mls/hr ONCE ONCE IV 01/13/19 11:45 01/13/19 11:47 DC 01/13/19 11:51 200 MLS/HR Sodium Chloride 500 ml @ 0 mls/hr Q0M ONCE IV 01/13/19 10:43 01/13/19 10:45 DC 01/13/19 10:51 0 MLS/HR Vital Signs/I&O 01/13/19 01/13/19 01/13/19 01/13/19 10:27 10:40 11:38 11:52 Temp 101.8 Pulse 98 Resp 22 B/P (MAP) 130/83 (99) Pulse Ox 94 94 93 96 O2 Delivery Nasal Cannula Nasal Cannula Nasal Cannula Nasal Cannula O2 Flow Rate 2.00 2.00 2.00 2.00 01/13/19 01/13/19 01/13/19 12:17 12:17 12:18 Temp 99.6 99.6 Pulse 94 94 Resp 22 22 B/P (MAP) 105/74 105/74 (84) Pulse Ox 96 96 O2 Delivery Nasal Cannula Nasal Cannula O2 Flow Rate 2.00 2.00 2.00 2.00 2.00 Capillary Refill : Less Than 3 Seconds Blood Pressure Mean: 99 Progress Note : Progress Note Seen and evaluated. IV, labs, UA, chest x-ray, blood cultures, lactic acid, normal saline 500 mL bolus, ABG, DuoNeb, albuterol neb and O2 ordered. Acetaminophen 1000 mg by mouth due to fever. Monitor patient. 1158: Pneumonia noted. Lactic acid not elevated. ABG results noted and the anus findings. Patient is doing better but did require 2 more albuterol treatments. Rocephin 1 g IV ordered and given. Solu-Medrol 125 mg IV ordered and given. I did discuss the case with Dr. Riggins who accepts patient for admission, inpatient status. Patient and family agree with plan. Diagnostic Imaging Diagonstic Imaging: Xray Plain Films/CT/US/NM/MRI: chest Comments [facility] [place], [place] NAME: ELLIOT GREENBERG [facility] REC#: [id number] PT STATUS: REG ER : 1960 PHYSICIAN: JUANA GODWIN MD ADMIT DATE: 01/13/19/ER Draft Date of Exam:01/13/19 CHEST 1 VIEW, AP/PA ONLY INDICATION: Coughing up blood. Patient also complains of shortness of air. Time of exam: 10:49 AM Correlation is made with prior chest from 07/19/2017. Heart size is stable. There appears to be some infiltrate in the right base medially. Otherwise, the lungs are clear. The pulmonary vascularity is normal. No effusion or pneumothorax is seen. IMPRESSION: Right basilar infiltrate. Dictated on workstation # [id number] Dict: 01/13/19 1102 Trans: 01/13/19 1105 RAMIN [id number] Interpreted by: RAQUEL MONTOYA MD Electronically signed by: Reviewed: Reviewed by Me Departure Communication (Admissions) Time/Spoke to Admitting Phy: 11:58 Impression Primary Impression: Right lower lobe pneumonia Qualified Codes: J18.1 - Lobar pneumonia, unspecified organism Additional Impression: COPD (chronic obstructive pulmonary disease) Qualified Codes: J41.1 - Mucopurulent chronic bronchitis Disposition: ADMITTED INPATIENT Condition: Stable Admissions Decision to Admit Reason: Admit from ER (General) Decision to Admit/Date: Jan 13, 2019 Time/Decision to Admit Time: 11:58 Departure-Patient Inst. Referrals: [facility] [place] ([place]P) Primary Care Physician THOMAS JENNINGS (Family) Primary Care Physician JUANA GODWIN MD Jan 13, 2019 10:48
--- OUTSIDE RECORDS SUMMARY | 2019-01-13 10:58 | XMS REPORT | Continuity of Care Document ---
Author Organization Unknown Address Unknown Phone Unavailable Allergies Active Description Code Type Severity Reaction Onset Reported/Identified Relationship to Patient Clinical Status Yes codeine [id number] Drug Allergy Mild N/A 05/27/2008 Yes codeine Drug Allergy N/A N/A 08/10/2008 Yes codeine Drug Allergy 08/10/2008 Yes bees OA N/A N/A 12/14/2008 Yes bees OA 12/14/2008 Yes Bactrim DS 800-160 mg tablet Drug Allergy N/A N/A 01/06/2014 Yes sulfamethoxazole [id number] Drug Allergy Severe N/A 03/04/2014 Yes trimethoprim [id number] Drug Allergy Severe N/A 03/04/2014 Yes hydrocodone-acetaminophen 10-325 mg tablet Drug Allergy N/A N/A 07/16/2014 Yes bee venom (honey bee) [id number] Drug Allergy Unknown N/A 09/16/2014 Yes venom-honey bee [id number] Drug Allergy Unknown N/A 09/16/2014 Yes codeine [id number] Drug Allergy Severe ANAPHYLAXIS BUT 11/11/2014 Medications There is no data. 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 05/10/1453 SOSA RESENDIZ MD, Ot F15.10 OTHER STIMULANT ABUSE, UNCOMPLICATED 05/10/1453 SOSA RESENDIZ MD, Ot L03.818 CELLULITIS OF OTHER SITES 05/10/1453 MARTÍN ESCOTO, SOSA Tellez Ot L97.122 NON-PRESSURE CHRONIC ULCER OF LEFT THIGH 05/10/1619 JEN SANTIAGO MD Ot M25.512 PAIN IN LEFT SHOULDER 05/10/1619 JEN SANTIAGO MD Ot Z47.89 ENCOUNTER FOR OTHER ORTHOPEDIC AFTERCARE 01/10/2008 JOSIAH ROCK LATHERNAKIA LockwoodNDA S 724.5 Backache Unspecified 01/10/2008 724.5 Backache Unspecified 01/10/2008 NAKIA RAHMAN APRNNDA S 724.5 Backache Unspecified 01/10/2008 724.5 Backache Unspecified 01/10/2008 724.5 Backache Unspecified 01/10/2008 NAKIA RAHMAN APRNNDA S 724.5 Backache Unspecified 01/10/2008 JOSIAH ROCK LATHERNAKIA LockwoodNDA S 724.5 Backache Unspecified 01/10/2008 NAKIA RAHMAN APRNNDA S 724.5 Backache Unspecified 01/10/2008 JOSIAH ROCK LATHERNAKIA LockwoodNDA S 724.5 Backache Unspecified 01/10/2008 JOSIAH LERNER RASHEED S 724.5 Backache Unspecified 01/10/2008 BYRON ESCOTO, AMINA Marr 724.5 Backache Unspecified 01/10/2008 JACK YUAN DO 724.5 Backache Unspecified 01/10/2008 JOSIAH ROCK LATHER, RASHEED S 724.5 Backache Unspecified 01/10/2008 NAKIA RAHMAN APRNNDA S 724.5 Backache Unspecified 01/10/2008 NANCY ANAYA APRN 724.5 Backache Unspecified 01/10/2008 JOSIAH LERNER RASHEED S 724.5 Backache Unspecified 01/10/2008 NAKIA RAHMAN APRNNDA S 724.5 Backache Unspecified 01/10/2008 JACK YUAN DO 724.5 Backache Unspecified 01/10/2008 JOSIAH ROCK LATHERNAKIA LockwoodNDA S 724.5 Backache Unspecified 01/10/2008 NAKIA RAHMAN APRNNDA S 724.5 Backache Unspecified 01/10/2008 NICCI ESCOTO, ARIAS 724.5 Backache Unspecified 01/10/2008 JOSIAH ROCK LATHER, RASHEED S 724.5 Backache Unspecified 01/10/2008 JOSIAH ROCK LATHER, RASHEED S 724.5 Backache Unspecified 01/10/2008 JACK YUAN DO 724.5 Backache Unspecified 01/10/2008 JOSIAH ROCK LATHER, RASHEED S 724.5 Backache Unspecified 01/10/2008 JOSIAH ROCK LATHER, RASHEED S 724.5 Backache Unspecified 01/10/2008 JOSIAH ROCK LATHER, RASHEED S 724.5 Backache Unspecified 02/18/2008 JOSIAH ROCK LATHER, RASHEED S 729.1 MYALGIA AND MYOSITIS UNSPECIFIED 02/18/2008 729.1 MYALGIA AND MYOSITIS UNSPECIFIED 02/18/2008 JOSIAH ROCK LATHER, RASHEED S 729.1 MYALGIA AND MYOSITIS UNSPECIFIED 02/18/2008 729.1 MYALGIA AND MYOSITIS UNSPECIFIED 02/18/2008 729.1 MYALGIA AND MYOSITIS UNSPECIFIED 02/18/2008 JOSIAH ROCK LATHER, RASHEED S 729.1 MYALGIA AND MYOSITIS UNSPECIFIED 02/18/2008 JOSIAH ROCK LATHER, RASHEED S 729.1 MYALGIA AND MYOSITIS UNSPECIFIED 02/18/2008 JOSIAH ROCK LATHER, RASHEED S 729.1 MYALGIA AND MYOSITIS UNSPECIFIED 02/18/2008 JOSIAH ROCK LATHER, RASHEED S 729.1 MYALGIA AND MYOSITIS UNSPECIFIED 02/18/2008 JOSIAH ROCK LATHER, RASHEED S 729.1 MYALGIA AND MYOSITIS UNSPECIFIED 02/18/2008 BYRON ESCOTO, AMINA aMrr 729.1 MYALGIA AND MYOSITIS UNSPECIFIED 02/18/2008 JACK YUAN DO 729.1 MYALGIA AND MYOSITIS UNSPECIFIED 02/18/2008 JOSIAH ROCK LATHER, RASHEED S 729.1 MYALGIA AND MYOSITIS UNSPECIFIED 02/18/2008 JOSIAH ROCK LATHER, RASHEED S 729.1 MYALGIA AND MYOSITIS UNSPECIFIED 02/18/2008 NANCY ANAYA APRN 729.1 MYALGIA AND MYOSITIS UNSPECIFIED 02/18/2008 JOSIAH ROCK LATHER, RASHEED S 729.1 MYALGIA AND MYOSITIS UNSPECIFIED 02/18/2008 JOSIAH ROCK LATHER, RASHEED S 729.1 MYALGIA AND MYOSITIS UNSPECIFIED 02/18/2008 INDER YUAN DOA K 729.1 MYALGIA AND MYOSITIS UNSPECIFIED 02/18/2008 JOSIAH ROCK LATHER, RASHEED S 729.1 MYALGIA AND MYOSITIS UNSPECIFIED 02/18/2008 JOSIAH ROCK LATHER, RASHEED S 729.1 MYALGIA AND MYOSITIS UNSPECIFIED 02/18/2008 ARIAS GRAJEDA MD 729.1 MYALGIA AND MYOSITIS UNSPECIFIED 02/18/2008 JOSIAH ROCK LATHER, RASHEED S 729.1 MYALGIA AND MYOSITIS UNSPECIFIED 02/18/2008 JOSIAH ROCK LATHER, RASHEED S 729.1 MYALGIA AND MYOSITIS UNSPECIFIED 02/18/2008 INDER YUAN DOA K 729.1 MYALGIA AND MYOSITIS UNSPECIFIED 02/18/2008 JOSIAH ROCK LATHER, RASHEED S 729.1 MYALGIA AND MYOSITIS UNSPECIFIED 02/18/2008 JOSIAH ROCK LATHER, RASHEED S 729.1 MYALGIA AND MYOSITIS UNSPECIFIED 02/18/2008 JOSIAH ROCK LATHER, RASHEED S 729.1 MYALGIA AND MYOSITIS UNSPECIFIED 06/22/2008 JOSIAH ROCK LATHER, RASHEED S 782.1 Rash 06/22/2008 782.1 Rash 06/22/2008 JOSIAH ROCK LATHER, RASHEED S 782.1 Rash 06/22/2008 782.1 Rash 06/22/2008 782.1 Rash 06/22/2008 JOSIAH ROCK LATHER, RASHEED S 782.1 Rash 06/22/2008 JOSIAH ROCK LATHER, RASHEED S 782.1 Rash 06/22/2008 JOSIAH ROCK LATHER, RASHEED S 782.1 Rash 06/22/2008 JOSIAH ROCK LATHER, RASHEED S 782.1 Rash 06/22/2008 JOSIAH ROCK LATHER, RASHEED S 782.1 Rash 06/22/2008 BYRON ESCOTO, AMINA Marr 782.1 Rash 06/22/2008 YUAN DO, JACK K 782.1 Rash 06/22/2008 JOSIAH ROCK LATHER, RASHEED S 782.1 Rash 06/22/2008 JOSIAH ROCK LATHER, RASHEED S 782.1 Rash 06/22/2008 MADL ROCK LATHER, NANCY L 782.1 Rash 06/22/2008 JOSIAH ROCK LATHER, RASHEED S 782.1 Rash 06/22/2008 JOSIAH ROCK LATHER, RASHEED S 782.1 Rash 06/22/2008 YUAN DO, JACK K 782.1 Rash 06/22/2008 JOSIAH ROCK LATHER, RASHEED S 782.1 Rash 06/22/2008 JOSIAH ROCK LATHER, RASHEED S 782.1 Rash 06/22/2008 ARIAS GRAJEDA MD 782.1 Rash 06/22/2008 JOSIAH ROCK LATHER, RASHEED S 782.1 Rash 06/22/2008 JOSIAH ROCK LATHER, RASHEED S 782.1 Rash 06/22/2008 YUAN DO, JACK K 782.1 Rash 06/22/2008 JOSIAH ROCK LATHER, RASHEED S 782.1 Rash 06/22/2008 JOSIAH ROCK LATHER, RASHEED S 782.1 Rash 06/22/2008 JOSIAH ROCK LATHER, RASHEED S 782.1 Rash 08/10/2008 JOSIAH ROCK LATHER, RASHEED S 708.9 Unspecified Urticaria 08/10/2008 708.9 Unspecified Urticaria 08/10/2008 JOSIAH ROCK LATHER, RASHEED S 708.9 Unspecified Urticaria 08/10/2008 708.9 Unspecified Urticaria 08/10/2008 708.9 Unspecified Urticaria 08/10/2008 JOSIAH ROCK LATHER, RASHEED S 708.9 Unspecified Urticaria 08/10/2008 JOSIAH ROCK LATHER, RASHEED S 708.9 Unspecified Urticaria 08/10/2008 JOSIAH ROCK LATHER, RASHEED S 708.9 Unspecified Urticaria 08/10/2008 JOSIAH ROCK LATHER, RASHEED S 708.9 Unspecified Urticaria 08/10/2008 JOSIAH ROCK LATHER, RASHEED S 708.9 Unspecified Urticaria 08/10/2008 BYRON ESCOTO, AMINA Marr 708.9 Unspecified Urticaria 08/10/2008 YUAN DO, JACK K 708.9 Unspecified Urticaria 08/10/2008 JOSIAH ROCK LATHER, RASHEED S 708.9 Unspecified Urticaria 08/10/2008 JOSIAH ROCK LATHER, RASHEED S 708.9 Unspecified Urticaria 08/10/2008 JACLYN ROCK LATHER, NANCY Gordon 708.9 Unspecified Urticaria 08/10/2008 JOSIAH ROCK LATHER, RASHEED S 708.9 Unspecified Urticaria 08/10/2008 JOSIAH ROCK LATHER, RASHEED S 708.9 Unspecified Urticaria 08/10/2008 YUAN DO, JACK K 708.9 Unspecified Urticaria 08/10/2008 JOSIAH ROCK LATHER, RASHEED S 708.9 Unspecified Urticaria 08/10/2008 JOSIAH ROCK LATHER, RASHEED S 708.9 Unspecified Urticaria 08/10/2008 NICCI ESCOTO, ARIAS 708.9 Unspecified Urticaria 08/10/2008 JOSIAH ROCK LATHER, RASHEED S 708.9 Unspecified Urticaria 08/10/2008 JOSIAH ROCK LATHER, RASHEED S 708.9 Unspecified Urticaria 08/10/2008 YUAN DO, JACK K 708.9 Unspecified Urticaria 08/10/2008 JOSIAH ROCK LATHER, RASHEED S 708.9 Unspecified Urticaria 08/10/2008 JOSIAH ROCK LATHER, RASHEED S 708.9 Unspecified Urticaria 08/10/2008 JOSIAH ROCK LATHER, RASHEED S 708.9 Unspecified Urticaria 08/17/2008 JOSIAH ROCK LATHER, RASHEED S 465.9 Acute Upper Respiratory Infections Of Unspecified Site 08/17/2008 JOSIAH ROCK LATHER, RASHEED S 692.81 Dermatitis Due To Cosmetics 08/17/2008 465.9 Acute Upper Respiratory Infections Of Unspecified Site 08/17/2008 692.81 Dermatitis Due To Cosmetics 08/17/2008 JOSIAH ROCK LATHER, RASHEED S 465.9 Acute Upper Respiratory Infections Of Unspecified Site 08/17/2008 JOSIAH ROCK LATHER, RASHEED S 692.81 Dermatitis Due To Cosmetics 08/17/2008 465.9 Acute Upper Respiratory Infections Of Unspecified Site 08/17/2008 692.81 Dermatitis Due To Cosmetics 08/17/2008 465.9 Acute Upper Respiratory Infections Of Unspecified Site 08/17/2008 692.81 Dermatitis Due To Cosmetics 08/17/2008 JOSIAH ROCK LATHER, RASHEED S 465.9 Acute Upper Respiratory Infections Of Unspecified Site 08/17/2008 JOSIAH ROCK LATHER, RASHEED S 692.81 Dermatitis Due To Cosmetics 08/17/2008 JOSIAH ROCK LATHER RASHEED S 465.9 Acute Upper Respiratory Infections Of Unspecified Site 08/17/2008 JOSIAH ROCK LATHER RASHEED S 692.81 Dermatitis Due To Cosmetics 08/17/2008 JOSIAH ROCK LATHER RASHEED S 465.9 Acute Upper Respiratory Infections Of Unspecified Site 08/17/2008 JOSIAH ROCK LATHER RASHEED S 692.81 Dermatitis Due To Cosmetics 08/17/2008 JOSIAH ROCK LATHER, RASHEED S 465.9 Acute Upper Respiratory Infections Of Unspecified Site 08/17/2008 JOSIAH ROCK LATHER RASHEED S 692.81 Dermatitis Due To Cosmetics 08/17/2008 JOSIAH ROCK LATHER, RASHEED S 465.9 Acute Upper Respiratory Infections Of Unspecified Site 08/17/2008 JOSIAH LERNER RASHEED S 692.81 Dermatitis Due To Cosmetics 08/17/2008 AMINA MATTHEWS MD 465.9 Acute Upper Respiratory Infections Of Unspecified Site 08/17/2008 AMIAN MATTHEWS MD 692.81 Dermatitis Due To Cosmetics 08/17/2008 JACK YUAN DO K 465.9 Acute Upper Respiratory Infections Of Unspecified Site 08/17/2008 YUAN JACK HDEZ K 692.81 Dermatitis Due To Cosmetics 08/17/2008 JOSIAH ROCK LATHER RASHEED S 465.9 Acute Upper Respiratory Infections Of Unspecified Site 08/17/2008 JOSIAH LERNER RASHEED S 692.81 Dermatitis Due To Cosmetics 08/17/2008 JOSIAH ROCK LATHER, RASHEED S 465.9 Acute Upper Respiratory Infections Of Unspecified Site 08/17/2008 JOSIAH ROCK LATHER, RASHEED S 692.81 Dermatitis Due To Cosmetics 08/17/2008 MADL ROCK LATHER, NANCY L 465.9 Acute Upper Respiratory Infections Of Unspecified Site 08/17/2008 MADL ROCK LATHER, NANCY L 692.81 Dermatitis Due To Cosmetics 08/17/2008 JOSIAH ROCK LATHER, RASHEED S 465.9 Acute Upper Respiratory Infections Of Unspecified Site 08/17/2008 JOSIAH ROCK LATHER, RASHEED S 692.81 Dermatitis Due To Cosmetics 08/17/2008 JOSIAH ROCK LATHER, RASHEED S 465.9 Acute Upper Respiratory Infections Of Unspecified Site 08/17/2008 JOSIAH ROCK LATHER, RASHEED S 692.81 Dermatitis Due To Cosmetics 08/17/2008 YUAN DO, JACK K 465.9 Acute Upper Respiratory Infections Of Unspecified Site 08/17/2008 YUAN DO, JACK K 692.81 Dermatitis Due To Cosmetics 08/17/2008 JOSIAH ROCK LATHER, RASHEED S 465.9 Acute Upper Respiratory Infections Of Unspecified Site 08/17/2008 JOSIAH ROCK LATHER, RASHEED S 692.81 Dermatitis Due To Cosmetics 08/17/2008 JOSIAH ROCK LATHER, RASHEED S 465.9 Acute Upper Respiratory Infections Of Unspecified Site 08/17/2008 JOSIAH ROCK LATHER, RASHEED S 692.81 Dermatitis Due To Cosmetics 08/17/2008 ARIAS GRAJEDA MD 465.9 Acute Upper Respiratory Infections Of Unspecified Site 08/17/2008 ARIAS GRAJEDA MD 692.81 Dermatitis Due To Cosmetics 08/17/2008 JOSIAH ROCK LATHER, RASHEED S 465.9 Acute Upper Respiratory Infections Of Unspecified Site 08/17/2008 JOSIAH ROCK LATHER, RASHEED S 692.81 Dermatitis Due To Cosmetics 08/17/2008 JOSIAH ROCK LATHER, RASHEED S 465.9 Acute Upper Respiratory Infections Of Unspecified Site 08/17/2008 JOSIAH ROCK LATHER, RASHEED S 692.81 Dermatitis Due To Cosmetics 08/17/2008 YUAN DO, JACK K 465.9 Acute Upper Respiratory Infections Of Unspecified Site 08/17/2008 YUAN DO, JACK K 692.81 Dermatitis Due To Cosmetics 08/17/2008 JOSIAH ROCK LATHER, RASHEED S 465.9 Acute Upper Respiratory Infections Of Unspecified Site 08/17/2008 JOSIAH ROCK LATHER, RASHEED S 692.81 Dermatitis Due To Cosmetics 08/17/2008 JOSIHA ROCK LATHER, RASHEED S 465.9 Acute Upper Respiratory Infections Of Unspecified Site 08/17/2008 JOSIAH ROCK LATHER, RASHEED S 692.81 Dermatitis Due To Cosmetics 08/17/2008 JOSIAH ROCK LATHER, RASHEED S 465.9 Acute Upper Respiratory Infections Of Unspecified Site 08/17/2008 JOSIAH ROCK LATHER, RASHEED S 692.81 Dermatitis Due To Cosmetics 10/27/2008 JOSIAH ROCK LATHER, RASHEED S 696.1 Other Psoriasis And Similar Disorders 10/27/2008 JOSIAH ROCK LATHER, RASHEED S 704.00 Alopecia Unspecified 10/27/2008 696.1 Other Psoriasis And Similar Disorders 10/27/2008 704.00 Alopecia Unspecified 10/27/2008 JOSIAH ROCK LATHER, RASHEED S 696.1 Other Psoriasis And Similar Disorders 10/27/2008 JOSIAH ROCK LATHER, RASHEED S 704.00 Alopecia Unspecified 10/27/2008 696.1 Other Psoriasis And Similar Disorders 10/27/2008 704.00 Alopecia Unspecified 10/27/2008 696.1 Other Psoriasis And Similar Disorders 10/27/2008 704.00 Alopecia Unspecified 10/27/2008 JOSIAH ROCK LATHER, RASHEED S 696.1 Other Psoriasis And Similar Disorders 10/27/2008 JOSIAH ROCK LATHER, RASHEED S 704.00 Alopecia Unspecified 10/27/2008 JOSIAH ROCK LATHER, RASHEED S 696.1 Other Psoriasis And Similar Disorders 10/27/2008 JOSIAH ROCK LATHER, RASHEED S 704.00 Alopecia Unspecified 10/27/2008 JOSIAH ROCK LATHER, RASHEED S 696.1 Other Psoriasis And Similar Disorders 10/27/2008 JOSIAH ROCK LATHER, RASHEED S 704.00 Alopecia Unspecified 10/27/2008 JOSIAH ROCK LATHER, RASHEED S 696.1 Other Psoriasis And Similar Disorders 10/27/2008 JOSIAH ROCK LATHER, RASHEED S 704.00 Alopecia Unspecified 10/27/2008 JOSIAH ROCK LATHER, RASHEED S 696.1 Other Psoriasis And Similar Disorders 10/27/2008 JOSIAH ROCK LATHER, RASHEED S 704.00 Alopecia Unspecified 10/27/2008 AMINA MATTHEWS MD 696.1 Other Psoriasis And Similar Disorders 10/27/2008 AMINA MATTHEWS MD 704.00 Alopecia Unspecified 10/27/2008 YUAN DO JACK K 696.1 Other Psoriasis And Similar Disorders 10/27/2008 YUAN DO JACK K 704.00 Alopecia Unspecified 10/27/2008 JOSIAH COVARRUBIASN RASHEED S 696.1 Other Psoriasis And Similar Disorders 10/27/2008 JOSIAH COVARRUBIASN, RASHEED S 704.00 Alopecia Unspecified 10/27/2008 JOSIAH LERNER RASHEED S 696.1 Other Psoriasis And Similar Disorders 10/27/2008 JOSIAH ROCK LATHER, RASHEED S 704.00 Alopecia Unspecified 10/27/2008 MADL ROCK LATHER, NANCY L 696.1 Other Psoriasis And Similar Disorders 10/27/2008 MADL ROCK LATHER, NANCY L 704.00 Alopecia Unspecified 10/27/2008 JOSIAH ROCK LATHER, RASHEED S 696.1 Other Psoriasis And Similar Disorders 10/27/2008 JOSIAH ROCK LATHER, RASHEED S 704.00 Alopecia Unspecified 10/27/2008 JOSIAH COVARRUBIASN, RASHEED S 696.1 Other Psoriasis And Similar Disorders 10/27/2008 JOSIAH ROCK LATHER, RASHEED S 704.00 Alopecia Unspecified 10/27/2008 YUAN DO, JACK K 696.1 Other Psoriasis And Similar Disorders 10/27/2008 YUAN DO JACK K 704.00 Alopecia Unspecified 10/27/2008 JOSIAH ROCK LATHER, RASHEED S 696.1 Other Psoriasis And Similar Disorders 10/27/2008 JOSIAH ROCK LATHER, RASHEED S 704.00 Alopecia Unspecified 10/27/2008 JOSIAH LERNER, RASHEED S 696.1 Other Psoriasis And Similar Disorders 10/27/2008 JOSIAH LERNER, RASHEED S 704.00 Alopecia Unspecified 10/27/2008 ARIAS GRAJEDA MD 696.1 Other Psoriasis And Similar Disorders 10/27/2008 ARIAS GRAJEDA MD 704.00 Alopecia Unspecified 10/27/2008 JOSIAH LERNER, RASHEED S 696.1 Other Psoriasis And Similar Disorders 10/27/2008 JOSIAH COVARRUBIASN, RASHEED S 704.00 Alopecia Unspecified 10/27/2008 JOSIAH COVARRUBIASN, RASHEED S 696.1 Other Psoriasis And Similar Disorders 10/27/2008 JOSIAH ROCK LATHER, RASHEED S 704.00 Alopecia Unspecified 10/27/2008 YUAN DO, JACK K 696.1 Other Psoriasis And Similar Disorders 10/27/2008 YUAN DO, JACK K 704.00 Alopecia Unspecified 10/27/2008 JOSIAH ROCK LATHER, RASHEED S 696.1 Other Psoriasis And Similar Disorders 10/27/2008 JOSIAH LERNER, RASHEED S 704.00 Alopecia Unspecified 10/27/2008 JOSIAH COVARRUBIASN, RASHEED S 696.1 Other Psoriasis And Similar Disorders 10/27/2008 JOSIAH COVARRUBIASN, RASHEED S 704.00 Alopecia Unspecified 10/27/2008 JOSIAH LERNER, RASHEED S 696.1 Other Psoriasis And Similar Disorders 10/27/2008 JOSIAH LERNER, RASHEED S 704.00 Alopecia Unspecified 12/14/2008 JOSIAH LERNER RASHEED S 682.3 Cellulitis And Abscess Of Upper Arm And Forearm 12/14/2008 682.3 Cellulitis And Abscess Of Upper Arm And Forearm 12/14/2008 JOSIAH LERNER RASHEED S 682.3 Cellulitis And Abscess Of Upper Arm And Forearm 12/14/2008 682.3 Cellulitis And Abscess Of Upper Arm And Forearm 12/14/2008 682.3 Cellulitis And Abscess Of Upper Arm And Forearm 12/14/2008 JOSIAH LERNER RASHEED S 682.3 Cellulitis And Abscess Of Upper Arm And Forearm 12/14/2008 JOSIAH LERNER RASHEED S 682.3 Cellulitis And Abscess Of Upper Arm And Forearm 12/14/2008 JOSIAH ROCK LATHER, RASHEED S 682.3 Cellulitis And Abscess Of Upper Arm And Forearm 12/14/2008 JOSIAH ROCK LATHER, RASHEED S 682.3 Cellulitis And Abscess Of Upper Arm And Forearm 12/14/2008 JOSIAH ROCK LATHER, RASHEED S 682.3 Cellulitis And Abscess Of Upper Arm And Forearm 12/14/2008 BYRON ESCOTO, AMINA Marr 682.3 Cellulitis And Abscess Of Upper Arm And Forearm 12/14/2008 JACK YUAN DO 682.3 Cellulitis And Abscess Of Upper Arm And Forearm 12/14/2008 JOSIAH ROCK LATHER, RASHEED S 682.3 Cellulitis And Abscess Of Upper Arm And Forearm 12/14/2008 JOSIAH ROCK LATHER, RASHEED S 682.3 Cellulitis And Abscess Of Upper Arm And Forearm 12/14/2008 NANCY ANAYA APRN 682.3 Cellulitis And Abscess Of Upper Arm And Forearm 12/14/2008 JOSIAH ROCK LATHER, RASHEED S 682.3 Cellulitis And Abscess Of Upper Arm And Forearm 12/14/2008 JOSIAH ROCK LATHER, RASHEED S 682.3 Cellulitis And Abscess Of Upper Arm And Forearm 12/14/2008 JACK YUAN DO 682.3 Cellulitis And Abscess Of Upper Arm And Forearm 12/14/2008 JOSIAH ROCK LATHER, RASHEED S 682.3 Cellulitis And Abscess Of Upper Arm And Forearm 12/14/2008 JOSIAH ROCK LATHER, RASHEED S 682.3 Cellulitis And Abscess Of Upper Arm And Forearm 12/14/2008 ARIAS GRAJEDA MD 682.3 Cellulitis And Abscess Of Upper Arm And Forearm 12/14/2008 JOSIAH ROCK LATHER, RASHEED S 682.3 Cellulitis And Abscess Of Upper Arm And Forearm 12/14/2008 JOSIAH ROCK LATHER, RASHEED S 682.3 Cellulitis And Abscess Of Upper Arm And Forearm 12/14/2008 JACK YUAN DO 682.3 Cellulitis And Abscess Of Upper Arm And Forearm 12/14/2008 JOSIAH ROCK LATHER, RASHEED S 682.3 Cellulitis And Abscess Of Upper Arm And Forearm 12/14/2008 JOSIAH ROCK LATHER, RASHEED S 682.3 Cellulitis And Abscess Of Upper Arm And Forearm 12/14/2008 JOSIAH ROCK LATHER, RASHEED S 682.3 Cellulitis And Abscess Of Upper Arm And Forearm 08/03/2009 JOSIAH ROCK LATHER, RASHEED S 496 CHRONIC OBSTRUCTIVE PULMONARY DISEASE 08/03/2009 496 CHRONIC OBSTRUCTIVE PULMONARY DISEASE 08/03/2009 JOSIAH ROCK LATHER, RASHEED S 496 CHRONIC OBSTRUCTIVE PULMONARY DISEASE 08/03/2009 496 CHRONIC OBSTRUCTIVE PULMONARY DISEASE 08/03/2009 496 CHRONIC OBSTRUCTIVE PULMONARY DISEASE 08/03/2009 JOSIAH ROCK LATHER, RASHEED S 496 CHRONIC OBSTRUCTIVE PULMONARY DISEASE 08/03/2009 JOSIAH ROCK LATHER, RASHEED S 496 CHRONIC OBSTRUCTIVE PULMONARY DISEASE 08/03/2009 JOSIAH ROCK LATHER, RASHEED S 496 CHRONIC OBSTRUCTIVE PULMONARY DISEASE 08/03/2009 JOSIAH ROCK LATHER, ARSHEED S 496 CHRONIC OBSTRUCTIVE PULMONARY DISEASE 08/03/2009 JOSIAH ROCK LATHER, RASHEED S 496 CHRONIC OBSTRUCTIVE PULMONARY DISEASE 08/03/2009 BYRON ESCOTO, AMINA Marr 496 CHRONIC OBSTRUCTIVE PULMONARY DISEASE 08/03/2009 JACK YUAN DO K 496 CHRONIC OBSTRUCTIVE PULMONARY DISEASE 08/03/2009 JOSIAH ROCK LATHER, RASHEED S 496 CHRONIC OBSTRUCTIVE PULMONARY DISEASE 08/03/2009 JOSAIH ROCK LATHER, RASHEED S 496 CHRONIC OBSTRUCTIVE PULMONARY DISEASE 08/03/2009 JACLYN ROCK LATHER, NANCY L 496 CHRONIC OBSTRUCTIVE PULMONARY DISEASE 08/03/2009 JOSIAH ROCK LATHER, RASHEED S 496 CHRONIC OBSTRUCTIVE PULMONARY DISEASE 08/03/2009 JOSIAH ROCK LATHER, RASHEED S 496 CHRONIC OBSTRUCTIVE PULMONARY DISEASE 08/03/2009 JACK YUAN DO K 496 CHRONIC OBSTRUCTIVE PULMONARY DISEASE 08/03/2009 JOSIAH ROCK LATHER, RASHEED S 496 CHRONIC OBSTRUCTIVE PULMONARY DISEASE 08/03/2009 JOSIAH ROCK LATHER, RASHEED S 496 CHRONIC OBSTRUCTIVE PULMONARY DISEASE 08/03/2009 ARIAS GRAJEDA MD 496 CHRONIC OBSTRUCTIVE PULMONARY DISEASE 08/03/2009 JOSIAH ROCK LATHER, RASHEED S 496 CHRONIC OBSTRUCTIVE PULMONARY DISEASE 08/03/2009 JOSIAH ROCK LATHER, RASHEED S 496 CHRONIC OBSTRUCTIVE PULMONARY DISEASE 08/03/2009 JACK YUAN DO K 496 CHRONIC OBSTRUCTIVE PULMONARY DISEASE 08/03/2009 JOSIAH ROCK LATHER, RASHEED S 496 CHRONIC OBSTRUCTIVE PULMONARY DISEASE 08/03/2009 JOSIAH ROCK LATHER, RASHEED S 496 CHRONIC OBSTRUCTIVE PULMONARY DISEASE 08/03/2009 JOSIAH ROCK LATHER, RASHEED S 496 CHRONIC OBSTRUCTIVE PULMONARY DISEASE 04/05/2010 JOSIAH ROCK LATHER, RASHEED S 535.40 Other Specified Gastritis (without Hemorrhage) 04/05/2010 535.40 Other Specified Gastritis (without Hemorrhage) 04/05/2010 JOSIAH ROCK LATHER, RASHEED S 535.40 Other Specified Gastritis (without Hemorrhage) 04/05/2010 535.40 Other Specified Gastritis (without Hemorrhage) 04/05/2010 535.40 Other Specified Gastritis (without Hemorrhage) 04/05/2010 JOSIAH ROCK LATHER, RASHEED S 535.40 Other Specified Gastritis (without Hemorrhage) 04/05/2010 JOSIAH ROCK LATHER, RASHEED S 535.40 Other Specified Gastritis (without Hemorrhage) 04/05/2010 JOSIAH ROCK LATHER, RASHEED S 535.40 Other Specified Gastritis (without Hemorrhage) 04/05/2010 JOSIAH ROCK LATHER, RASHEED S 535.40 Other Specified Gastritis (without Hemorrhage) 04/05/2010 JOSIAH ROCK LATHER, RASHEED S 535.40 Other Specified Gastritis (without Hemorrhage) 04/05/2010 AMINA MATTHEWS MD 535.40 Other Specified Gastritis (without Hemorrhage) 04/05/2010 JACK YUAN DO 535.40 Other Specified Gastritis (without Hemorrhage) 04/05/2010 JOSIAH ROCK LATHER, RASHEED S 535.40 Other Specified Gastritis (without Hemorrhage) 04/05/2010 JOSIAH ROCK LATHER, RASHEED S 535.40 Other Specified Gastritis (without Hemorrhage) 04/05/2010 JACLYN ROCK LATHER, NANCY L 535.40 Other Specified Gastritis (without Hemorrhage) 04/05/2010 JOSIAH ROCK LATHER, RASHEED S 535.40 Other Specified Gastritis (without Hemorrhage) 04/05/2010 JOSIAH ROCK LATHER, RASHEED S 535.40 Other Specified Gastritis (without Hemorrhage) 04/05/2010 JACK YUAN DO 535.40 Other Specified Gastritis (without Hemorrhage) 04/05/2010 JOSIAH ROCK LATHER, RASHEED S 535.40 Other Specified Gastritis (without Hemorrhage) 04/05/2010 JOSIAH ROCK LATHER, RASHEED S 535.40 Other Specified Gastritis (without Hemorrhage) 04/05/2010 ARIAS GRAJEDA MD 535.40 Other Specified Gastritis (without Hemorrhage) 04/05/2010 JOSIAH ROCK LATHER, RASHEED S 535.40 Other Specified Gastritis (without Hemorrhage) 04/05/2010 JOSIAH ROCK LATHER, RASHEED S 535.40 Other Specified Gastritis (without Hemorrhage) 04/05/2010 JACK YUAN DO 535.40 Other Specified Gastritis (without Hemorrhage) 04/05/2010 JOSIAH ROCK LATHER, RASHEED S 535.40 Other Specified Gastritis (without Hemorrhage) 04/05/2010 JOSIAH ROCK LATHER, RASHEED S 535.40 Other Specified Gastritis (without Hemorrhage) 04/05/2010 JOSIAH ROCK LATHER, RASHEED S 535.40 Other Specified Gastritis (without Hemorrhage) 05/23/2010 JOSIAH ROCK LATHER RASHEED S V18.0 FAM HX DIABETES MELLITUS 05/23/2010 V18.0 FAM HX DIABETES MELLITUS 05/23/2010 JOSIAH ROCK LATHER RASHEED S V18.0 FAM HX DIABETES MELLITUS 05/23/2010 V18.0 FAM HX DIABETES MELLITUS 05/23/2010 V18.0 FAM HX DIABETES MELLITUS 05/23/2010 JOSIAH ROCK LATHER, RASHEED S V18.0 FAM HX DIABETES MELLITUS 05/23/2010 JOSIAH ROCK LATHER, RASHEED S V18.0 FAM HX DIABETES MELLITUS 05/23/2010 JOSIAH ROCK LATHER, RASHEED S V18.0 FAM HX DIABETES MELLITUS 05/23/2010 JOSIAH LERNER RASHEED S V18.0 FAM HX DIABETES MELLITUS 05/23/2010 JOSIAH ROCK LATHER, RASHEED S V18.0 FAM HX DIABETES MELLITUS 05/23/2010 AMINA MATTHEWS MD V18.0 FAM HX DIABETES MELLITUS 05/23/2010 JACK YUAN DO V18.0 FAM HX DIABETES MELLITUS 05/23/2010 JOSIAH ROCK LATHER, RASHEED S V18.0 FAM HX DIABETES MELLITUS 05/23/2010 JOSIAH ROCK LATHER, RASHEED S V18.0 FAM HX DIABETES MELLITUS 05/23/2010 JACLYN COVARRUBIASNNANCY V18.0 FAM HX DIABETES MELLITUS 05/23/2010 JOSIAH ROCK LATHER, RASHEED S V18.0 FAM HX DIABETES MELLITUS 05/23/2010 JOSIAH ROCK LATHER, RASHEED S V18.0 FAM HX DIABETES MELLITUS 05/23/2010 YUAN DO, JACK K V18.0 FAM HX DIABETES MELLITUS 05/23/2010 JOSIAH ROCK LATHER, RASHEED S V18.0 FAM HX DIABETES MELLITUS 05/23/2010 JOSIAH LERNER, RASHEED S V18.0 FAM HX DIABETES MELLITUS 05/23/2010 ARIAS GRAJEDA MD V18.0 FAM HX DIABETES MELLITUS 05/23/2010 JOSIAH ROCK LATHER, RASHEED S V18.0 FAM HX DIABETES MELLITUS 05/23/2010 JOSIAH ROCK LATHER, RASHEED S V18.0 FAM HX DIABETES MELLITUS 05/23/2010 YUAN DO, JACK K V18.0 FAM HX DIABETES MELLITUS 05/23/2010 JOSIAH ROCK LATHER, RASHEED S V18.0 FAM HX DIABETES MELLITUS 05/23/2010 NAKIA RAHMAN APRNNDA S V18.0 FAM HX DIABETES MELLITUS 05/23/2010 JOSIAH COVARRUBIASN, RASHEED S V18.0 FAM HX DIABETES MELLITUS 10/25/2010 JOSIAH LERNER, RASHEED S 780.57 Unspecified Sleep Apnea 10/25/2010 JOSIAH LERNER, RASHEED S 780.79 Fatigue 10/25/2010 JOSIAH LERNER, RASHEED S 787.91 Diarrhea 10/25/2010 JOSIAH LERNER, RASHEED S 788.1 Dysuria 10/25/2010 JOSIAH LERNER RASHEED S 799.02 Hypoxemia 10/25/2010 780.57 Unspecified Sleep Apnea 10/25/2010 780.79 Fatigue 10/25/2010 787.91 Diarrhea 10/25/2010 788.1 Dysuria 10/25/2010 799.02 Hypoxemia 10/25/2010 JOSIAH LERNER, RASHEED S 780.57 Unspecified Sleep Apnea 10/25/2010 JOSIAH LERNER, RASHEED S 780.79 Fatigue 10/25/2010 JOSIAH LERNER, RASHEED S 787.91 Diarrhea 10/25/2010 JOSIAH LERNER RASHEED S 788.1 Dysuria 10/25/2010 JOSIAH ROCK LATHER, RASHEED S 799.02 Hypoxemia 10/25/2010 780.57 Unspecified Sleep Apnea 10/25/2010 780.79 Fatigue 10/25/2010 787.91 Diarrhea 10/25/2010 788.1 Dysuria 10/25/2010 799.02 Hypoxemia 10/25/2010 780.57 Unspecified Sleep Apnea 10/25/2010 780.79 Fatigue 10/25/2010 787.91 Diarrhea 10/25/2010 788.1 Dysuria 10/25/2010 799.02 Hypoxemia 10/25/2010 JOSIAH ROCK LATHER, RASHEED S 780.57 Unspecified Sleep Apnea 10/25/2010 JOSIAH ROCK LATHER, RASHEED S 780.79 Fatigue 10/25/2010 JOSIAH ROCK LATHER, RASHEED S 787.91 Diarrhea 10/25/2010 JOSIAH ROCK LATHER, RASHEED S 788.1 Dysuria 10/25/2010 JOSIAH ROCK LATHER, RASHEED S 799.02 Hypoxemia 10/25/2010 JOSIAH ROCK LATHER, RASHEED S 780.57 Unspecified Sleep Apnea 10/25/2010 JOSIAH ROCK LATHER, RASHEED S 780.79 Fatigue 10/25/2010 JOSIAH ROCK LATHER, RASHEED S 787.91 Diarrhea 10/25/2010 JOSIAH ROCK LATHER, RASHEED S 788.1 Dysuria 10/25/2010 JOSIAH ROCK LATHER, RASHEED S 799.02 Hypoxemia 10/25/2010 JOSIAH ROCK LATHER, RASHEED S 780.57 Unspecified Sleep Apnea 10/25/2010 JOSIAH ROCK LATHER, RASHEED S 780.79 Fatigue 10/25/2010 JOSIAH ROCK LATHER, RASHEED S 787.91 Diarrhea 10/25/2010 JOSIAH ROCK LATHER, RASHEED S 788.1 Dysuria 10/25/2010 JOSIAH ROCK LATHER, RASHEED S 799.02 Hypoxemia 10/25/2010 JOSIAH ROCK LATHER, RASHEED S 780.57 Unspecified Sleep Apnea 10/25/2010 JOSIAH ROCK LATHER, RASHEED S 780.79 Fatigue 10/25/2010 JOSIAH ROCK LATHER, RASHEED S 787.91 Diarrhea 10/25/2010 JOSIAH ROCK LATHER, RASHEED S 788.1 Dysuria 10/25/2010 JOSIAH ROCK LATHER, RASHEED S 799.02 Hypoxemia 10/25/2010 JOSIAH ROCK LATHER, RASHEED S 780.57 Unspecified Sleep Apnea 10/25/2010 JOSIAH ROCK LATHER, RASHEED S 780.79 Fatigue 10/25/2010 JOSIAH ROCK LATHER, RASHEED S 787.91 Diarrhea 10/25/2010 JOSIAH ROCK LATHER, RASHEED S 788.1 Dysuria 10/25/2010 JOSIAH ROCK LATHER, RASHEED S 799.02 Hypoxemia 10/25/2010 AMINA MATTHEWS [...] DO, JACK K 799.02 Hypoxemia 10/25/2010 JOSIAH ROCK LATHER, RASHEED S 780.57 Unspecified Sleep Apnea 10/25/2010 JOSIAH ROCK LATHER, RASHEED S 780.79 Fatigue 10/25/2010 JOSIAH ROCK LATHER, RASHEED S 787.91 Diarrhea 10/25/2010 JOSIAH ROCK LATHER, RASHEED S 788.1 Dysuria 10/25/2010 JOSIAH ROCK LATHER, RASHEED S 799.02 Hypoxemia 10/25/2010 JOSIAH ROCK LATHER, RASHEED S 780.57 Unspecified Sleep Apnea 10/25/2010 JOSIAH ROCK LATHER, RASHEED S 780.79 Fatigue 10/25/2010 JOSIAH ROCK LATHER, ARSHEED S 787.91 Diarrhea 10/25/2010 JOSIAH ROCK LATHER, RASHEED S 788.1 Dysuria 10/25/2010 JOSIAH ROCK LATHER, RASHEED S 799.02 Hypoxemia 10/25/2010 MADL ROCK LATHER, NANCY L 780.57 Unspecified Sleep Apnea 10/25/2010 MADL ROCK LATHER, NANCY L 780.79 Fatigue 10/25/2010 MADL ROCK LATHER, NANCY L 787.91 Diarrhea 10/25/2010 MADL ROCK LATHER, NANCY L 788.1 Dysuria 10/25/2010 MADL ROCK LATHER, NANCY L 799.02 Hypoxemia 10/25/2010 JOSIAH ROCK LATHER, RASHEED S 780.57 Unspecified Sleep Apnea 10/25/2010 JOSIAH ROCK LATHER, RASHEED S 780.79 Fatigue 10/25/2010 JOSIAH ROCK LATHER, RASHEED S 787.91 Diarrhea 10/25/2010 JOSIAH ROCK LATHER, RASHEED S 788.1 Dysuria 10/25/2010 JOSIAH ROCK LATHER, RASHEED S 799.02 Hypoxemia 10/25/2010 JOSIAH ROCK LATHER, RASHEED S 780.57 Unspecified Sleep Apnea 10/25/2010 JOSIAH ROCK LATHER, RASHEED S 780.79 Fatigue 10/25/2010 JOSIAH ROCK LATHER, RASHEED S 787.91 Diarrhea 10/25/2010 JOSIAH ROCK LATHER, RASHEED S 788.1 Dysuria 10/25/2010 JOSIAH ROCK LATHER, RASHEED S 799.02 Hypoxemia 10/25/2010 YUAN DO, JACK K 780.57 Unspecified Sleep Apnea 10/25/2010 YUAN DO, JACK K 780.79 Fatigue 10/25/2010 YUAN DO, JACK K 787.91 Diarrhea 10/25/2010 YUAN DO, JACK K 788.1 Dysuria 10/25/2010 YUAN DO, JACK K 799.02 Hypoxemia 10/25/2010 JOSIAH ROCK LATHER, RASHEED S 780.57 Unspecified Sleep Apnea 10/25/2010 JOSIAH ROCK LATHER, RASHEED S 780.79 Fatigue 10/25/2010 JOSIAH ROCK LATHER, RASHEED S 787.91 Diarrhea 10/25/2010 JOSIAH ROCK LATHER, RASHEED S 788.1 Dysuria 10/25/2010 JOSIAH ROCK LATHER, RASHEED S 799.02 Hypoxemia 10/25/2010 JOSIAH ROCK LATHER, RASHEED S 780.57 Unspecified Sleep Apnea 10/25/2010 JOSIAH ROCK LATHER, RASHEED S 780.79 Fatigue 10/25/2010 JOSIAH ROCK LATHER, RASHEED S 787.91 Diarrhea 10/25/2010 JOSIAH ROCK LATHER, RASHEED S 788.1 Dysuria 10/25/2010 JOSIAH ROCK LATHER, RASHEED S 799.02 Hypoxemia 10/25/2010 ARIAS GRAJEDA MD 780.57 Unspecified Sleep Apnea 10/25/2010 NICCI ESCOTO, ARIAS 780.79 Fatigue 10/25/2010 ARIAS GRAJEDA MD 787.91 Diarrhea 10/25/2010 ARIAS GRAJEDA MD 788.1 Dysuria 10/25/2010 ARIAS GRAJEDA MD 799.02 Hypoxemia 10/25/2010 JOSIAH COVARRUBIASN, RASHEED S 780.57 Unspecified Sleep Apnea 10/25/2010 JOSIAH COVARRUBIASN, RASHEED S 780.79 Fatigue 10/25/2010 JOSIAH COVARRUBIASN, RASHEED S 787.91 Diarrhea 10/25/2010 JOSIAH ROCK LATHER, RASHEED S 788.1 Dysuria 10/25/2010 JOSIAH ROCK LATHER, RASHEED S 799.02 Hypoxemia 10/25/2010 JOSIAH ROCK LATHER, RASHEED S 780.57 Unspecified Sleep Apnea 10/25/2010 JOSIAH ROCK LATHER, RASHEED S 780.79 Fatigue 10/25/2010 JOSIAH ROCK LATHER, RASHEED S 787.91 Diarrhea 10/25/2010 JOSIAH ROCK LATHER, RASHEED S 788.1 Dysuria 10/25/2010 JOSIAH ROCK LATHER, RASHEED S 799.02 Hypoxemia 10/25/2010 YUAN DO, JACK K 780.57 Unspecified Sleep Apnea 10/25/2010 YUAN DO, JACK K 780.79 Fatigue 10/25/2010 YUAN DO, JACK K 787.91 Diarrhea 10/25/2010 YUAN DO, JACK K 788.1 Dysuria 10/25/2010 YUAN DO, JACK K 799.02 Hypoxemia 10/25/2010 JOSIAH ROCK LATHER, RASHEED S 780.57 Unspecified Sleep Apnea 10/25/2010 JOSIAH ROCK LATHER, RASHEED S 780.79 Fatigue 10/25/2010 JOSIAH ROCK LATHER, RASHEED S 787.91 Diarrhea 10/25/2010 JOSIAH ROCK LATHER, RASHEED S 788.1 Dysuria 10/25/2010 JOSIAH ROCK LATHER, RASHEED S 799.02 Hypoxemia 10/25/2010 JOSIAH ROCK LATHER, RASHEED S 780.57 Unspecified Sleep Apnea 10/25/2010 JOSIAH ROCK LATHER, RASHEED S 780.79 Fatigue 10/25/2010 JOSIAH ROCK LATHER, RASHEED S 787.91 Diarrhea 10/25/2010 JOSIAH ROCK LATHER, RASHEED S 788.1 Dysuria 10/25/2010 JOSIAH ROCK LATHER, RASHEED S 799.02 Hypoxemia 10/25/2010 JOSIAH ROCK LATHER, RASHEED S 780.57 Unspecified Sleep Apnea 10/25/2010 JOSIAH ROCK LATHER, RASHEED S 780.79 Fatigue 10/25/2010 JOSIAH ROCK LATHER, RASHEED S 787.91 Diarrhea 10/25/2010 JOSIAH ROCK LATHER, RASHEED S 788.1 Dysuria 10/25/2010 JOSIAH ROCK LATHER, RASHEED S 799.02 Hypoxemia 12/20/2010 JOSIAH ROCK LATHER, RASHEED S 719.46 joint pain, localized in the knee 12/20/2010 719.46 joint pain, localized in the knee 12/20/2010 JOSIAH ROCK LATHER, ARSHEED S 719.46 joint pain, localized in the knee 12/20/2010 719.46 joint pain, localized in the knee 12/20/2010 719.46 joint pain, localized in the knee 12/20/2010 JOSIAH ROCK LATHER, RASHEED S 719.46 joint pain, localized in the knee 12/20/2010 JOSIAH ROCK LATHER, RASHEED S 719.46 joint pain, localized in the knee 12/20/2010 JOSIAH ROCK LATHER, RASHEED S 719.46 joint pain, localized in the knee 12/20/2010 JOSIAH ROCK LATHER, RASHEED S 719.46 joint pain, localized in the knee 12/20/2010 JOSIAH ROCK LATHER, RASHEED S 719.46 joint pain, localized in the knee 12/20/2010 BYRON ESCOTO, AMINA Marr 719.46 joint pain, localized in the knee 12/20/2010 YUAN JACK HDEZ 719.46 joint pain, localized in the knee 12/20/2010 JOSIAH ROCK LATHER, RASHEED S 719.46 joint pain, localized in the knee 12/20/2010 JOSIAH ROCK LATHER, RASHEED S 719.46 joint pain, localized in the knee 12/20/2010 LILLYL NANCY LERNER 719.46 joint pain, localized in the knee 12/20/2010 JOSIAH ROCK LATHER, RASHEED S 719.46 joint pain, localized in the knee 12/20/2010 JOSIAH ROCK LATHER, RASHEED S 719.46 joint pain, localized in the knee 12/20/2010 YUAN DOINDERA K 719.46 joint pain, localized in the knee 12/20/2010 JOSIAH ROCK LATHER, RASHEED S 719.46 joint pain, localized in the knee 12/20/2010 JOSIAH ROCK LATHER, RASHEED S 719.46 joint pain, localized in the knee 12/20/2010 NICCI ESCOTO, ARIAS 719.46 joint pain, localized in the knee 12/20/2010 JOSIAH ROCK LATHER, RASHEED S 719.46 joint pain, localized in the knee 12/20/2010 JOSIAH ROCK LATHER, RASHEED S 719.46 joint pain, localized in the knee 12/20/2010 YUAN DOINDERA K 719.46 joint pain, localized in the knee 12/20/2010 JOSIAH ROCK LATHER, RASHEED S 719.46 joint pain, localized in the knee 12/20/2010 JOSIAH ROCK LATHER, RASHEED S 719.46 joint pain, localized in the knee 12/20/2010 JOSIAH ROCK LATHER, RASHEED S 719.46 joint pain, localized in the knee 03/28/2011 JOSIAH ROCK LATHER, RASHEED S 401.1 ESSENTIAL HYPERTENSION BENIGN 03/28/2011 JOSIAH ROCK LATHER, RASHEED S 724.2 LUMBAGO 03/28/2011 JOSIAH COVARRUBIASN, RASHEED S V04.81 Flu Dx (3 Yrs And Above, Im) 03/28/2011 401.1 ESSENTIAL HYPERTENSION BENIGN 03/28/2011 724.2 LUMBAGO 03/28/2011 V04.81 Flu Dx (3 Yrs And Above, Im) 03/28/2011 NAKIA RAHMAN APRNNDA S 401.1 ESSENTIAL HYPERTENSION BENIGN 03/28/2011 JOSIAH ROCK LATHER, RASHEED S 724.2 LUMBAGO 03/28/2011 JOSIAH ROCK LATHER, RASHEED S V04.81 Flu Dx (3 Yrs And Above, Im) 03/28/2011 401.1 ESSENTIAL HYPERTENSION BENIGN 03/28/2011 724.2 LUMBAGO 03/28/2011 V04.81 Flu Dx (3 Yrs And Above, Im) 03/28/2011 401.1 ESSENTIAL HYPERTENSION BENIGN 03/28/2011 724.2 LUMBAGO 03/28/2011 V04.81 Flu Dx (3 Yrs And Above, Im) 03/28/2011 NICOLA RAHMAN APRNA S 401.1 ESSENTIAL HYPERTENSION BENIGN 03/28/2011 NAKIA RAHMAN APRNNDA S 724.2 LUMBAGO 03/28/2011 JOSIAH ROCK LATHERNAKIARASHEED S V04.81 Flu Dx (3 Yrs And Above, Im) 03/28/2011 NAKIA RAHMAN APRNNDA S 401.1 ESSENTIAL HYPERTENSION BENIGN 03/28/2011 JOSIAH ROCK LATHER, RASHEED S 724.2 LUMBAGO 03/28/2011 JOSIAH ROCK LATHERNAKIARASHEED S V04.81 Flu Dx (3 Yrs And Above, Im) 03/28/2011 NAKIA RAHMAN APRNNDA S 401.1 ESSENTIAL HYPERTENSION BENIGN 03/28/2011 JOSIAH COVARRUBIASN, RASHEED S 724.2 LUMBAGO 03/28/2011 JOSIAH ROCK LATHER, RASHEED S V04.81 Flu Dx (3 Yrs And Above, Im) 03/28/2011 NAKIA RAHMAN APRNNDA S 401.1 ESSENTIAL HYPERTENSION BENIGN 03/28/2011 JOSIAH ROCK LATHER RASHEED S 724.2 LUMBAGO 03/28/2011 JOSIAH ROCK LATHERNAKIA LockwoodNDA S V04.81 Flu Dx (3 Yrs And Above, Im) 03/28/2011 NAKIA RAHMAN APRNNDA S 401.1 ESSENTIAL HYPERTENSION BENIGN 03/28/2011 JOSIAH ROCK LATHER, RASHEED S 724.2 LUMBAGO 03/28/2011 JOSIAH ROCK LATHER, RASHEED S V04.81 Flu Dx (3 Yrs And Above, Im) 03/28/2011 BYRON ESCOTO, AMINA Marr 401.1 ESSENTIAL HYPERTENSION BENIGN 03/28/2011 BYRON ESCOTO, AMINA Marr 724.2 LUMBAGO 03/28/2011 BYRON ESCOTO, AMINA Marr V04.81 Flu Dx (3 Yrs And Above, Im) 03/28/2011 YUAN DO, JACK K 401.1 ESSENTIAL HYPERTENSION BENIGN 03/28/2011 YUAN DO, JACK K 724.2 LUMBAGO 03/28/2011 YUAN DO, JACK K V04.81 Flu Dx (3 Yrs And Above, Im) 03/28/2011 JOSIAH COVARRUBIASN, RASHEED S 401.1 ESSENTIAL HYPERTENSION BENIGN 03/28/2011 JOSIAH COVARRUBIASN, RASHEED S 724.2 LUMBAGO 03/28/2011 JOSIAH ROCK LATHER, RASHEED S V04.81 Flu Dx (3 Yrs And Above, Im) 03/28/2011 JOSIAH ROCK LATHER, RASHEED S 401.1 ESSENTIAL HYPERTENSION BENIGN 03/28/2011 JOSIAH ROCK LATHER, RASHEED S 724.2 LUMBAGO 03/28/2011 JOSIAH ROCK LATHER, RASHEED S V04.81 Flu Dx (3 Yrs And Above, Im) 03/28/2011 MADL ROCK LATHER, NANCY L 401.1 ESSENTIAL HYPERTENSION BENIGN 03/28/2011 MADL ROCK LATHER, NANCY L 724.2 LUMBAGO 03/28/2011 MADL ROCK LATHER, NANCY L V04.81 Flu Dx (3 Yrs And Above, Im) 03/28/2011 JOSIAH ROCK LATHER, RASHEED S 401.1 ESSENTIAL HYPERTENSION BENIGN 03/28/2011 JOSIAH ROCK LATHER, RASHEED S 724.2 LUMBAGO 03/28/2011 JOSIAH ROCK LATHER, RASHEED S V04.81 Flu Dx (3 Yrs And Above, Im) 03/28/2011 JOSIAH LERNER, RASHEED S 401.1 ESSENTIAL HYPERTENSION BENIGN 03/28/2011 JOSIAH ROCK LATHER, RASHEED S 724.2 LUMBAGO 03/28/2011 JOSIAH ROCK LATHER, RASHEED S V04.81 Flu Dx (3 Yrs And Above, Im) 03/28/2011 YUAN DO, JACK K 401.1 ESSENTIAL HYPERTENSION BENIGN 03/28/2011 YUAN DO, JACK K 724.2 LUMBAGO 03/28/2011 YUAN DO, JACK K V04.81 Flu Dx (3 Yrs And Above, Im) 03/28/2011 JOSIAH LERNER, RASHEED S 401.1 ESSENTIAL HYPERTENSION BENIGN 03/28/2011 JOSIAH ROCK LATHER, RASHEED S 724.2 LUMBAGO 03/28/2011 JOSIAH ROCK LATHER, RASHEED S V04.81 Flu Dx (3 Yrs [...] LERNER, RASHEED S 724.2 LUMBAGO 03/28/2011 JOSIAH ROCK LATHER, RASHEED S V04.81 Flu Dx (3 Yrs And Above, Im) 03/28/2011 YUAN DO, JACK K 401.1 ESSENTIAL HYPERTENSION BENIGN 03/28/2011 YUAN DO, JACK K 724.2 LUMBAGO 03/28/2011 YUAN DO, JACK K V04.81 Flu Dx (3 Yrs And Above, Im) 03/28/2011 JOSIAH ROCK LATHER, RASHEED S 401.1 ESSENTIAL HYPERTENSION BENIGN 03/28/2011 JOSIAH ROCK LATHER, RASHEED S 724.2 LUMBAGO 03/28/2011 JOSIAH ROCK LATHER, RASHEED S V04.81 Flu Dx (3 Yrs And Above, Im) 03/28/2011 JOSIAH ROCK LATHER, RASHEED S 401.1 ESSENTIAL HYPERTENSION BENIGN 03/28/2011 JOSIAH ROCK LATHER, RASHEED S 724.2 LUMBAGO 03/28/2011 JOSIAH ROCK LATHER, RASHEED S V04.81 Flu Dx (3 Yrs And Above, Im) 03/28/2011 JOSIAH ROCK LATHER, RASHEED S 401.1 ESSENTIAL HYPERTENSION BENIGN 03/28/2011 JOSIAH ROCK LATHER, RASHEED S 724.2 LUMBAGO 03/28/2011 JOSIAH ROCK LATHER, RASHEED S V04.81 Flu Dx (3 Yrs And Above, Im) 07/20/2011 JOSIAH COVARRUBIASN, RASHEED S 786.05 SHORTNESS OF BREATH 07/20/2011 786.05 SHORTNESS OF BREATH 07/20/2011 JOSIAH ROCK LATHER, RASHEED S 786.05 SHORTNESS OF BREATH 07/20/2011 786.05 SHORTNESS OF BREATH 07/20/2011 786.05 SHORTNESS OF BREATH 07/20/2011 JOSIAH ROCK LATHER, RASHEED S 786.05 SHORTNESS OF BREATH 07/20/2011 JOSIAH ROCK LATHER, RASHEED S 786.05 SHORTNESS OF BREATH 07/20/2011 JOSIAH ROCK LATHER, RASHEED S 786.05 SHORTNESS OF BREATH 07/20/2011 JOSIAH ROCK LATHER, RASHEED S 786.05 SHORTNESS OF BREATH 07/20/2011 JOSIAH ROCK LATHER, RASHEED S 786.05 SHORTNESS OF BREATH 07/20/2011 BYRON ESCOTO, AMINA Marr 786.05 SHORTNESS OF BREATH 07/20/2011 JACK YUAN DO 786.05 SHORTNESS OF BREATH 07/20/2011 JOSIAH ROCK LATHER, RASHEED S 786.05 SHORTNESS OF BREATH 07/20/2011 JOSIAH LERNER, RASHEED S 786.05 SHORTNESS OF BREATH 07/20/2011 JACLYN LERNER NANCY L 786.05 SHORTNESS OF BREATH 07/20/2011 RASHEED RAHMAN APRN S 786.05 SHORTNESS OF BREATH 07/20/2011 NICOLA RAHMAN APRNA S 786.05 SHORTNESS OF BREATH 07/20/2011 JACK YUAN DO 786.05 SHORTNESS OF BREATH 07/20/2011 NAKIA RAHMAN APRNNDA S 786.05 SHORTNESS OF BREATH 07/20/2011 NICOLA RAHMAN APRNA S 786.05 SHORTNESS OF BREATH 07/20/2011 ARIAS GRAJEDA MD 786.05 SHORTNESS OF BREATH 07/20/2011 RASHEED RAHMAN APRN S 786.05 SHORTNESS OF BREATH 07/20/2011 RASHEED RAHMAN APRN S 786.05 SHORTNESS OF BREATH 07/20/2011 JACK YUAN DO 786.05 SHORTNESS OF BREATH 07/20/2011 NICOLA RAHMAN APRNA S 786.05 SHORTNESS OF BREATH 07/20/2011 NICOLA RAHMAN APRNA S 786.05 SHORTNESS OF BREATH 07/20/2011 NICOLA [...] ACUTE RENAL FAILURE, UNSPECIFIED 08/15/2011 Ot 715.89 OSTEOARTHROSIS- MULT SITE 08/15/2011 Ot 787.91 DIARRHEA 08/15/2011 Ot 790.29 OTHER ABNORMAL GLUCOSE 08/15/2011 Ot E932.0 ADV EFF CORTICOSTEROIDS 08/15/2011 Ot V02.54 CARRIER, SUSP ESPINOSA METHICILLIN RESISTN S 08/24/2011 RASHEED RAHMAN APRN S 041.12 MRSA, METHICILLIN RESISTANT 08/24/2011 RASHEED RAHMAN APRN S 780.4 dizziness 08/24/2011 JOSIAH ROCK LATHER, RASHEED S 788.33 URGE AND STRESS INCONTINENCE 08/24/2011 041.12 MRSA, METHICILLIN RESISTANT 08/24/2011 780.4 dizziness 08/24/2011 788.33 URGE AND STRESS INCONTINENCE 08/24/2011 JOSIAH ROCK LATHER, RASHEED S 041.12 MRSA, METHICILLIN RESISTANT 08/24/2011 JOSIAH ROCK LATHER, RASHEED S 780.4 dizziness 08/24/2011 JOSIAH ROCK LATHER, RASHEED S 788.33 URGE AND STRESS INCONTINENCE 08/24/2011 041.12 MRSA, METHICILLIN RESISTANT 08/24/2011 780.4 dizziness 08/24/2011 788.33 URGE AND STRESS INCONTINENCE 08/24/2011 041.12 MRSA, METHICILLIN RESISTANT 08/24/2011 780.4 dizziness 08/24/2011 788.33 URGE AND STRESS INCONTINENCE 08/24/2011 JOSIAH ROCK LATHER, RASHEED S 041.12 MRSA, METHICILLIN RESISTANT 08/24/2011 JOSIAH ROCK LATHER, RASHEED S 780.4 dizziness 08/24/2011 JOSIAH ROCK LATHER, RASHEED S 788.33 URGE AND STRESS INCONTINENCE 08/24/2011 JOSIAH ROCK LATHER, RASHEED S 041.12 MRSA, METHICILLIN RESISTANT 08/24/2011 JOSIAH ROCK LATHER, RASHEED S 780.4 dizziness 08/24/2011 JOSIAH ROCK LATHER, RASHEED S 788.33 URGE AND STRESS INCONTINENCE 08/24/2011 JOSIAH ROCK LATHER, RASHEED S 041.12 MRSA, METHICILLIN RESISTANT 08/24/2011 JOSIAH ROCK LATHER, RASHEED S 780.4 dizziness 08/24/2011 JOSIAH ROCK LATHER, RASHEED S 788.33 URGE AND STRESS INCONTINENCE 08/24/2011 JOSIAH ROCK LATHER, RASHEED S 041.12 MRSA, METHICILLIN RESISTANT 08/24/2011 JOSIAH ROCK LATHER, RASHEED S 780.4 dizziness 08/24/2011 JOSIAH ROCK LATHER, RASHEED S 788.33 URGE AND STRESS INCONTINENCE 08/24/2011 JOSIAH ROCK LATHER, RASHEED S 041.12 MRSA, METHICILLIN RESISTANT 08/24/2011 JOSIAH ROCK LATHER, RASHEED S 780.4 dizziness 08/24/2011 JOSIAH ROCK LATHER, RASHEED S 788.33 URGE AND STRESS INCONTINENCE 08/24/2011 AMINA MATTHEWS MD 041.12 MRSA, METHICILLIN RESISTANT 08/24/2011 AMINA MATTHEWS MD 780.4 dizziness 08/24/2011 AMINA MATTHEWS MD 788.33 URGE AND STRESS INCONTINENCE 08/24/2011 YUAN DO, JACK K 041.12 MRSA, METHICILLIN RESISTANT 08/24/2011 YUAN DO, JACK K 780.4 dizziness 08/24/2011 YUAN DO, JACK K 788.33 URGE AND STRESS INCONTINENCE 08/24/2011 JOSIAH ROCK LATHER, RASHEED S 041.12 MRSA, METHICILLIN RESISTANT 08/24/2011 JOSIAH ROCK LATHER, RASHEED S 780.4 DIZZINESS 08/24/2011 JOSIAH ROCK LATHER, RASHEED S 788.33 URGE AND STRESS INCONTINENCE 08/24/2011 JOSIAH ROCK LATHER, RASHEED S 041.12 MRSA, METHICILLIN RESISTANT 08/24/2011 JOSIAH ROCK LATHER, RASHEED S 780.4 DIZZINESS 08/24/2011 JOSIAH ROCK LATHER, RASHEED S 788.33 URGE AND STRESS INCONTINENCE 08/24/2011 MADL ROCK LATHER, NANCY L 041.12 MRSA, METHICILLIN RESISTANT 08/24/2011 MADL ROCK LATHER, NANCY L 780.4 DIZZINESS 08/24/2011 MADL ROCK LATHER, NANCY L 788.33 URGE AND STRESS INCONTINENCE 08/24/2011 JOSIAH ROCK LATHER, RASHEED S 041.12 MRSA, METHICILLIN RESISTANT 08/24/2011 JOSIAH ROCK LATHER, RASHEED S 780.4 DIZZINESS 08/24/2011 JOSIAH ROCK LATHER, RASHEED S 788.33 URGE AND STRESS INCONTINENCE 08/24/2011 JOSIAH ROCK LATHER, RASHEED S 041.12 MRSA, METHICILLIN RESISTANT 08/24/2011 JOSIAH ROCK LATHER, RASHEED S 780.4 DIZZINESS 08/24/2011 JOSIAH ROCK LATHER, RASHEED S 788.33 URGE AND STRESS INCONTINENCE 08/24/2011 YUAN DO, JACK K 041.12 MRSA, METHICILLIN RESISTANT 08/24/2011 YUAN DO, JACK K 780.4 DIZZINESS 08/24/2011 YUAN DO, JACK K 788.33 URGE AND STRESS INCONTINENCE 08/24/2011 JOSIAH ROCK LATHER, RASHEED S 041.12 MRSA, METHICILLIN RESISTANT 08/24/2011 JOSIAH ROCK LATHER, RASHEED S 780.4 DIZZINESS 08/24/2011 JOSIAH ROCK LATHER, RASHEED S 788.33 URGE AND STRESS INCONTINENCE 08/24/2011 JOSIAH ROCK LATHER, RASHEED S 041.12 MRSA, METHICILLIN RESISTANT 08/24/2011 JOSIAH ROCK LATHER, RASHEED S 780.4 DIZZINESS 08/24/2011 JOSIAH ROCK LATHER, RASHEED S 788.33 URGE AND STRESS INCONTINENCE 08/24/2011 ARIAS GRAJEDA MD 041.12 MRSA, METHICILLIN RESISTANT 08/24/2011 ARIAS GRAJEDA MD 780.4 DIZZINESS 08/24/2011 ARIAS GRAJEDA MD 788.33 URGE AND STRESS INCONTINENCE 08/24/2011 JOSIAH COVARRUBIASN, RASHEED S 041.12 MRSA, METHICILLIN RESISTANT 08/24/2011 JOSIAH LERNER RASHEED S 780.4 DIZZINESS 08/24/2011 JOSIAH LERNER RASHEED S 788.33 URGE AND STRESS INCONTINENCE 08/24/2011 JOSIAH COVARRUBIASN, RASHEED S 041.12 MRSA, METHICILLIN RESISTANT 08/24/2011 JOSIAH COVARRUBIASN, RASHEED S 780.4 DIZZINESS 08/24/2011 JOSIAH COVARRUBIASN, RASHEED S 788.33 URGE AND STRESS INCONTINENCE 08/24/2011 YUAN DO, JACK K 041.12 MRSA, METHICILLIN RESISTANT 08/24/2011 YUAN DO, JACK K 780.4 DIZZINESS 08/24/2011 YUAN DO, JACK K 788.33 URGE AND STRESS INCONTINENCE 08/24/2011 JOSIAH ROCK LATHER, RASHEED S 041.12 MRSA, METHICILLIN RESISTANT 08/24/2011 JOSIAH ROCK LATHER, RASHEED S 780.4 DIZZINESS 08/24/2011 JOSIAH ROCK LATHER, RASHEED S 788.33 URGE AND STRESS INCONTINENCE 08/24/2011 JOSIAH ROCK LATHER, RASHEED S 041.12 MRSA, METHICILLIN RESISTANT 08/24/2011 JOSIAH ROCK LATHER, RASHEED S 780.4 DIZZINESS 08/24/2011 JOSIAH ROCK LATHER, RASHEED S 788.33 URGE AND STRESS INCONTINENCE 08/24/2011 RASHEED RAHMAN APRN S 041.12 MRSA, METHICILLIN RESISTANT 08/24/2011 RASHEED RAHMAN APRN S 780.4 DIZZINESS 08/24/2011 RASHEED RAHMAN APRN S 788.33 URGE AND STRESS INCONTINENCE 10/26/2011 [...] 01/18/2012 Ot V57.1 PHYSICAL THERAPY NEC 04/02/2012 RASHEED RAHMAN APRN S 079.99 VIRAL SYNDROME 04/02/2012 NICOLA RAHMAN APRNA S 466.0 BRONCHITIS, ACUTE 04/02/2012 079.99 VIRAL SYNDROME 04/02/2012 466.0 BRONCHITIS, ACUTE 04/02/2012 NICOLA RAHMAN APRNA S 079.99 VIRAL SYNDROME 04/02/2012 NICOLA RAHMAN APRNA S 466.0 BRONCHITIS, ACUTE 04/02/2012 079.99 VIRAL SYNDROME 04/02/2012 466.0 BRONCHITIS, ACUTE 04/02/2012 079.99 VIRAL SYNDROME 04/02/2012 466.0 BRONCHITIS, ACUTE 04/02/2012 NICOLA RAHMAN APRNA S 079.99 VIRAL SYNDROME 04/02/2012 NAKIA RAHMAN APRNNDA S 466.0 BRONCHITIS, ACUTE 04/02/2012 NAKIA RAHMAN APRNNDA S 079.99 VIRAL SYNDROME 04/02/2012 NICOLA RAHMAN APRNA S 466.0 BRONCHITIS, ACUTE 04/02/2012 NAKIA RAHMAN APRNNDA S 079.99 VIRAL SYNDROME 04/02/2012 NAKIA RAHMAN APRNNDA S 466.0 BRONCHITIS, ACUTE 04/02/2012 NICOLA RAHMAN APRNA S 079.99 VIRAL SYNDROME 04/02/2012 JOSIAH ROCK LATHER, RASHEED S 466.0 BRONCHITIS, ACUTE 04/02/2012 JOSIAH ROCK LATHER, RASHEED S 079.99 VIRAL SYNDROME 04/02/2012 JOSIAH ROCK LATHER, RASHEED S 466.0 BRONCHITIS, ACUTE 04/02/2012 BYRON ESCOTO, AMINA Marr 079.99 VIRAL SYNDROME 04/02/2012 BYRON ESCOTO, AMINA Marr 466.0 BRONCHITIS, ACUTE 04/02/2012 YUAN DO, JACK K 079.99 VIRAL SYNDROME 04/02/2012 YUAN DO, JACK K 466.0 BRONCHITIS, ACUTE 04/02/2012 JOSIAH ROCK LATHER, RASHEED S 079.99 VIRAL SYNDROME 04/02/2012 JOSIAH ROCK LATHER, RASHEED S 466.0 BRONCHITIS, ACUTE 04/02/2012 JOSIAH ROCK LATHER, RASHEED S 079.99 VIRAL SYNDROME 04/02/2012 JOSIAH ROCK LATHER, RASHEED S 466.0 BRONCHITIS, ACUTE 04/02/2012 MADL ROCK LATHER, NANCY L 079.99 VIRAL SYNDROME 04/02/2012 MADL ROCK LATHER, NANCY L 466.0 BRONCHITIS, ACUTE 04/02/2012 JOSIAH ROCK LATHER, RASHEED S 079.99 VIRAL SYNDROME 04/02/2012 JOSIAH ROCK LATHER, RASHEED S 466.0 BRONCHITIS, ACUTE 04/02/2012 JOSIAH ROCK LATHER, RASHEED S 079.99 VIRAL SYNDROME 04/02/2012 JOSIAH ROCK LATHER, RASHEED S 466.0 BRONCHITIS, ACUTE 04/02/2012 YUAN DO, JACK K 079.99 VIRAL SYNDROME 04/02/2012 YUAN DO, JACK K 466.0 BRONCHITIS, ACUTE 04/02/2012 JOSIAH ROCK LATHER, RASHEED S 079.99 VIRAL SYNDROME 04/02/2012 JOSIAH ROCK LATHER, RASHEED S 466.0 BRONCHITIS, ACUTE 04/02/2012 JOSIAH ROCK LATHER, RASHEED S 079.99 VIRAL SYNDROME 04/02/2012 JOSIAH ROCK LATHER, RASHEED S 466.0 BRONCHITIS, ACUTE 04/02/2012 ARIAS GRAJEDA MD 079.99 VIRAL SYNDROME 04/02/2012 NICCI ESCOTO, ARIAS 466.0 BRONCHITIS, ACUTE 04/02/2012 JOSIAH ROCK LATHER, RASHEED S 079.99 VIRAL SYNDROME 04/02/2012 JOSIAH ROCK LATHER, RASHEED S 466.0 BRONCHITIS, ACUTE 04/02/2012 JOSIAH ROCK LATHER, RASHEED S 079.99 VIRAL SYNDROME 04/02/2012 JOSIAH ROCK LATHER, RASHEED S 466.0 BRONCHITIS, ACUTE 04/02/2012 YUAN DO, JACK K 079.99 VIRAL SYNDROME 04/02/2012 YUAN DO, JACK K 466.0 BRONCHITIS, ACUTE 04/02/2012 JOSIAH ROCK LATHER, RASHEED S 079.99 VIRAL SYNDROME 04/02/2012 JOSIAH ROCK LATHER, RASHEED S 466.0 BRONCHITIS, ACUTE 04/02/2012 JOSIAH ROCK LATHER, RASHEED S 079.99 VIRAL SYNDROME 04/02/2012 JOSIAH ROCK LATHER, RASHEED S 466.0 BRONCHITIS, ACUTE 04/02/2012 JOSIAH ROCK LATHER, RASHEED S 079.99 VIRAL SYNDROME 04/02/2012 JOSIAH ROCK LATHER, RASHEED S 466.0 BRONCHITIS, ACUTE 01/07/2013 V07.4 HORMONE REPLACEMENT THERAPY (POSTMENOPAUSAL) 01/07/2013 NAKIA RAHMAN APRNNDA S V07.4 HORMONE REPLACEMENT THERAPY (POSTMENOPAUSAL) 01/07/2013 NAKIA RAHMAN APRNNDA S V07.4 HORMONE REPLACEMENT THERAPY (POSTMENOPAUSAL) 01/07/2013 NAKIA RAHMAN APRNNDA S V07.4 HORMONE REPLACEMENT THERAPY (POSTMENOPAUSAL) 01/07/2013 NAKIA RAHMAN APRNNDA S V07.4 HORMONE REPLACEMENT THERAPY (POSTMENOPAUSAL) 01/07/2013 NAKIA RAHMAN APRNNDA S V07.4 HORMONE REPLACEMENT THERAPY (POSTMENOPAUSAL) 01/07/2013 AMINA MATTHEWS MD V07.4 HORMONE REPLACEMENT THERAPY (POSTMENOPAUSAL) 01/07/2013 YUAN DO, JACK K V07.4 HORMONE REPLACEMENT THERAPY (POSTMENOPAUSAL) 01/07/2013 NAKIA RAHMAN APRNNDA S V07.4 HORMONE REPLACEMENT THERAPY (POSTMENOPAUSAL) 01/07/2013 NAKIA RAHMAN APRNNDA S V07.4 HORMONE REPLACEMENT THERAPY (POSTMENOPAUSAL) 01/07/2013 NANCY ANAYA APRN V07.4 HORMONE REPLACEMENT THERAPY (POSTMENOPAUSAL) 01/07/2013 JOSIAH ROCK LATHER, RASHEED S V07.4 HORMONE REPLACEMENT THERAPY (POSTMENOPAUSAL) 01/07/2013 JOSIAH LERNER, RASHEED S V07.4 HORMONE REPLACEMENT THERAPY (POSTMENOPAUSAL) 01/07/2013 JACK YUAN DO V07.4 HORMONE REPLACEMENT THERAPY (POSTMENOPAUSAL) 01/07/2013 JOSIAH ROCK LATHER, RASHEED S V07.4 HORMONE REPLACEMENT THERAPY (POSTMENOPAUSAL) 01/07/2013 NAKIA RAHMAN APRNNDA S V07.4 HORMONE REPLACEMENT THERAPY (POSTMENOPAUSAL) 01/07/2013 ARIAS GRAJEDA MD V07.4 HORMONE REPLACEMENT THERAPY (POSTMENOPAUSAL) 01/07/2013 JOSIAH LERNER, RASHEED S V07.4 HORMONE REPLACEMENT THERAPY (POSTMENOPAUSAL) 01/07/2013 JOSIAH LERNER, RASHEED S V07.4 HORMONE REPLACEMENT THERAPY (POSTMENOPAUSAL) 01/07/2013 JACK YUAN DO V07.4 HORMONE REPLACEMENT THERAPY (POSTMENOPAUSAL) 01/07/2013 NAKIA RAHMAN APRNNDA S V07.4 HORMONE REPLACEMENT THERAPY (POSTMENOPAUSAL) 01/07/2013 JOSIAH LERNER, RASHEED S V07.4 HORMONE REPLACEMENT THERAPY (POSTMENOPAUSAL) 01/07/2013 JOSIAH LERNER, RASHEED S V07.4 HORMONE REPLACEMENT THERAPY (POSTMENOPAUSAL) 06/02/2013 JOSIAH LERNER RASHEED S 696.1 PSORIASIS 06/02/2013 NAKIA RAHMAN APRNNDA S V73.81 HPV SCREENING 06/02/2013 JOSIAH LERNER, RASHEED S V76.10 BREAST CANCER SCREENING 06/02/2013 JOSIAH LERNER, RASHEED S V76.2 CERVICAL CANCER SCREENING (PAP SMEAR) 06/02/2013 JOSIAH LERNER, RASHEED S 696.1 PSORIASIS 06/02/2013 JOSIAH LERNER, RASHEED S V73.81 HPV SCREENING 06/02/2013 JOSIAH LERNER, RASHEED S V76.10 BREAST CANCER SCREENING 06/02/2013 JOSIAH ROCK LATHER, RASHEED S V76.2 CERVICAL CANCER SCREENING (PAP [...] CERVICAL CANCER SCREENING (PAP SMEAR) 06/02/2013 YUAN DO JACK K 696.1 PSORIASIS 06/02/2013 YUAN DO JACK K V73.81 HPV SCREENING 06/02/2013 YUAN DO JACK K V76.10 BREAST CANCER SCREENING 06/02/2013 YUAN DO, JACK K V76.2 CERVICAL CANCER SCREENING (PAP SMEAR) 06/02/2013 JOSIAH LERNER RASHEED S 696.1 PSORIASIS 06/02/2013 NAKIA RAHMAN APRNNDA S V73.81 HPV SCREENING 06/02/2013 NAKIA RAHMAN APRNNDA S V76.10 BREAST CANCER SCREENING 06/02/2013 JOSIAH LERNER RASHEED S V76.2 CERVICAL CANCER SCREENING (PAP SMEAR) 06/02/2013 JOSIAH LERNER RASHEED S 696.1 PSORIASIS 06/02/2013 JOSIAH LERNER RASHEED S V73.81 HPV SCREENING 06/02/2013 JOSIAH LERNER RASHEED S V76.10 BREAST CANCER SCREENING 06/02/2013 JOSIAH LERNER RASHEED S V76.2 CERVICAL CANCER SCREENING (PAP SMEAR) 06/02/2013 MADL ROCK LATHER, NANCY L 696.1 PSORIASIS 06/02/2013 MADL ROCK LATHER, NANCY L V73.81 HPV SCREENING 06/02/2013 MADL ROCK LATHER, NANCY L V76.10 BREAST CANCER SCREENING 06/02/2013 MADL ROCK LATHER, NANCY L V76.2 CERVICAL CANCER SCREENING (PAP SMEAR) 06/02/2013 JOSIAH LERNER RASHEED S 696.1 PSORIASIS 06/02/2013 JOSIAH ROCK LATHER, RASHEED S V73.81 HPV SCREENING 06/02/2013 JOSIAH [...] LERNER RASHEED S 696.1 PSORIASIS 06/02/2013 JOSIAH ROCK LATHER, RASHEED S V73.81 HPV SCREENING 06/02/2013 JOSIAH ROCK LATHER, RASHEED S V76.10 BREAST CANCER SCREENING 06/02/2013 JOSIAH ROCK LATHER, RASHEED S V76.2 CERVICAL CANCER SCREENING (PAP SMEAR) 06/02/2013 JOSIAH ROCK LATHER, RASHEED S 696.1 PSORIASIS 06/02/2013 JOSIAH ROCK LATHER, RASHEED S V73.81 HPV SCREENING 06/02/2013 JOSIAH COVARRUBIASN, RASHEED S V76.10 BREAST CANCER SCREENING 06/02/2013 JOSIAH ROCK LATHER, RASHEED S V76.2 CERVICAL CANCER SCREENING (PAP [...] S V76.10 BREAST CANCER SCREENING 06/02/2013 JOSIAH ROCK LATHER, RASHEED S V76.2 CERVICAL CANCER SCREENING (PAP SMEAR) 06/02/2013 JOSIAH ROCK LATHER, RASHEED S 696.1 PSORIASIS 06/02/2013 JOSIAH ROCK LATHER, RASHEED S V73.81 HPV SCREENING 06/02/2013 JOSIAH ROCK LATHER, RASHEED S V76.10 BREAST CANCER SCREENING 06/02/2013 JOSIAH ROCK LATHER, RASHEED S V76.2 CERVICAL CANCER SCREENING (PAP SMEAR) 07/03/2013 JOSIAH ROCK LATHER, RASHEED S 682.6 CELLULITIS AND ABSCESS OF LEG EXCEPT FOOT 07/03/2013 BYRON ESCOTO, AMINA Marr 682.6 CELLULITIS AND ABSCESS OF LEG EXCEPT FOOT 07/03/2013 JACK YUAN DO 682.6 CELLULITIS AND ABSCESS OF LEG EXCEPT FOOT 07/03/2013 JOSIAH ROCK LATHER, RASHEED S 682.6 CELLULITIS AND ABSCESS OF LEG EXCEPT FOOT 07/03/2013 JOSIAH ROCK LATHER, RASHEED S 682.6 CELLULITIS AND ABSCESS OF LEG EXCEPT FOOT 07/03/2013 NANCY ANAYA APRN 682.6 CELLULITIS AND ABSCESS OF LEG EXCEPT FOOT 07/03/2013 JOSIAH ROCK LATHER, RASHEED S 682.6 CELLULITIS AND ABSCESS OF LEG EXCEPT FOOT 07/03/2013 JOSIAH ROCK LATHER, RASHEED S 682.6 CELLULITIS AND ABSCESS OF LEG EXCEPT FOOT 07/03/2013 JACK YUAN DO K 682.6 CELLULITIS AND ABSCESS OF LEG EXCEPT FOOT 07/03/2013 JOSIAH ROCK LATHER, RASHEED S 682.6 CELLULITIS AND ABSCESS OF LEG EXCEPT FOOT 07/03/2013 JOSIAH ROCK LATHER, RASHEED S 682.6 CELLULITIS AND ABSCESS OF LEG EXCEPT FOOT 07/03/2013 NICCI ESCOTO, ARIAS 682.6 CELLULITIS AND ABSCESS OF LEG EXCEPT FOOT 07/03/2013 JOSIAH ROCK LATHER, RASHEED S 682.6 CELLULITIS AND ABSCESS OF LEG EXCEPT FOOT 07/03/2013 JOSIAH COVARRUBIASN, RASHEED S 682.6 CELLULITIS AND ABSCESS OF LEG EXCEPT FOOT 07/03/2013 JACK YUAN DO K 682.6 CELLULITIS AND ABSCESS OF LEG EXCEPT FOOT 07/03/2013 JOSIAH ROCK LATHER, RASHEED S 682.6 CELLULITIS AND ABSCESS OF LEG EXCEPT FOOT 07/03/2013 JOSIAH COVARRUBIASN, RASHEED S 682.6 CELLULITIS AND ABSCESS OF LEG EXCEPT FOOT 07/03/2013 JOSIAH ROCK LATHER, RASHEED S 682.6 CELLULITIS AND ABSCESS OF LEG EXCEPT FOOT 08/15/2013 BYRON ESCOTO, AMINA Marr 461.9 SINUSITIS ACUTE 08/15/2013 JACK YUAN DO 461.9 SINUSITIS ACUTE 08/15/2013 JOSIAH ROCK LATHER, RASHEED S 461.9 SINUSITIS ACUTE 08/15/2013 JOSIAH ROCK LATHER, RASHEED S 461.9 SINUSITIS ACUTE 08/15/2013 MADL ROCK LATHER, NANCY L 461.9 SINUSITIS ACUTE 08/15/2013 JOSIAH ROCK LATHER, RASHEED S 461.9 SINUSITIS ACUTE 08/15/2013 JOSIAH ROCK LATHER, RASHEED S 461.9 SINUSITIS ACUTE 08/15/2013 YUAN DO, JACK K 461.9 SINUSITIS ACUTE 08/15/2013 JOSIAH ROCK LATHER, RASHEED S 461.9 SINUSITIS ACUTE 08/15/2013 JOSIAH ROCK LATHER, RASHEED S 461.9 SINUSITIS ACUTE 08/15/2013 NICCI ESCOTO, ARIAS 461.9 SINUSITIS ACUTE 08/15/2013 JOSIAH ROCK LATHER, RASHEED S 461.9 SINUSITIS ACUTE 08/15/2013 JOSIAH ROCK LATHER, RASHEED S 461.9 SINUSITIS ACUTE 08/15/2013 KWABENA DO JACK K 461.9 SINUSITIS ACUTE 08/15/2013 JOSIAH ROCK LATHER, RASHEED S 461.9 SINUSITIS ACUTE 08/15/2013 JOSIAH ROCK LATHER, RASHEED S 461.9 SINUSITIS ACUTE 08/15/2013 JOSIAH ROCK LATHER, RASHEED S 461.9 SINUSITIS ACUTE 09/04/2013 YUAN DO, JACK K 733.92 CHONDROMALACIA 09/04/2013 JOSIAH ROCK LATHER, RASHEED S 733.92 CHONDROMALACIA 09/04/2013 JOSIAH ROCK LATHER, RASHEED S 733.92 CHONDROMALACIA 09/04/2013 MADL ROCK LATHER, NANCY L 733.92 CHONDROMALACIA 09/04/2013 JOSIAH ROCK LATHER, RASHEED S 733.92 CHONDROMALACIA 09/04/2013 JOSIAH ROCK LATHER, RASHEED S 733.92 CHONDROMALACIA 09/04/2013 YUAN DO, JACK K 733.92 CHONDROMALACIA 09/04/2013 JOSIAH ROCK LATHER, RASHEED S 733.92 CHONDROMALACIA 09/04/2013 JOSIHA ROCK LATHER, RASHEED S 733.92 CHONDROMALACIA 09/04/2013 ARIAS GRAJEDA MD 733.92 CHONDROMALACIA 09/04/2013 JOSIAH ROCK LATHER, RASHEED S 733.92 CHONDROMALACIA 09/04/2013 JOSIAH ROCK LATHER, RASHEED S 733.92 CHONDROMALACIA 09/04/2013 YUAN DO, JACK K 733.92 CHONDROMALACIA 09/04/2013 JOSIAH ROCK LATHER, RASHEED S 733.92 CHONDROMALACIA 09/04/2013 JOSIAH ROCK LATHER, RASHEED S 733.92 CHONDROMALACIA 09/04/2013 JOSIAH ROCK LATHER, RASHEED S 733.92 CHONDROMALACIA 09/11/2013 JOSIAH ROCK LATHER, RASHEED S 477.0 ALLERGIC RHINITIS DUE TO POLLEN 09/11/2013 JOSIAH ROCK LATHER, RASHEED S 477.0 ALLERGIC RHINITIS DUE TO POLLEN 09/11/2013 MADBERTHA Gordon APRNA L 477.0 ALLERGIC RHINITIS DUE TO POLLEN 09/11/2013 JOSIAH ROCK LATHER, RASHEED S 477.0 ALLERGIC RHINITIS DUE TO POLLEN 09/11/2013 JOSIAH ROCK LATHER, RASHEED S 477.0 ALLERGIC RHINITIS DUE TO POLLEN 09/11/2013 YUAN DO, JACK K 477.0 ALLERGIC RHINITIS DUE TO POLLEN 09/11/2013 JOSIAH ROCK LATHER, RASHEED S 477.0 ALLERGIC RHINITIS DUE TO POLLEN 09/11/2013 JOSIAH ROCK LATHER, RASHEED S 477.0 ALLERGIC RHINITIS DUE TO POLLEN 09/11/2013 ARIAS GRAJEDA MD 477.0 ALLERGIC RHINITIS DUE TO POLLEN 09/11/2013 JOSIAH ROCK LATHER, RASHEED S 477.0 ALLERGIC RHINITIS DUE TO POLLEN 09/11/2013 JOSIAH ROCK LATHER, RASHEED S 477.0 ALLERGIC RHINITIS DUE TO POLLEN 09/11/2013 YUAN DO, JACK K 477.0 ALLERGIC RHINITIS DUE TO POLLEN 09/11/2013 JOSIAH ROCK LATHER, RASHEED S 477.0 ALLERGIC RHINITIS DUE TO POLLEN 09/11/2013 JOSIAH ROCK LATHER, RASHEED S 477.0 ALLERGIC RHINITIS DUE TO POLLEN 09/11/2013 JOSIAH ROCK LATHER, RASHEED S 477.0 ALLERGIC RHINITIS DUE TO POLLEN 10/31/2013 DINO TILLMAN LIABILITY CLAIMS ADJUSTER Ot 715.36 LOC OSTEOARTH NOS-L/LEG 10/31/2013 DINO TILLMAN LIABILITY CLAIMS ADJUSTER Ot 729.89 MUSCSKEL SYMPT LIMB NEC 10/31/2013 DINO TILLMAN LIABILITY CLAIMS ADJUSTER Ot 733.92 CHONDROMALACIA 10/31/2013 DINO TILLMAN LIABILITY CLAIMS ADJUSTER Ot V43.65 KNEE JOINT REPLACEMENT STATUS 10/31/2013 DINO TILLMAN LIABILITY CLAIMS ADJUSTER Ot V54.81 AFTERCARE FOLLOWING JOINT REPLACEMENT 10/31/2013 DINO TILLMAN LIABILITY CLAIMS ADJUSTER Ot V57.1 PHYSICAL THERAPY NEC 11/17/2013 MADL ROCK LATHER, NANCY L 578.1 BLOOD IN STOOL 11/17/2013 MADL ROCK LATHER, NANCY L 789.06 ABDOMINAL PAIN EPIGASTRIC 11/17/2013 JOSIAH LERNER RASHEED S 578.1 BLOOD IN STOOL 11/17/2013 JOSIAH LERNER RASHEED S 789.06 ABDOMINAL PAIN EPIGASTRIC 11/17/2013 JOSAIH LERNER RASHEED S 578.1 BLOOD IN STOOL 11/17/2013 JOSIAH LERNER RASHEED S 789.06 ABDOMINAL PAIN EPIGASTRIC 11/17/2013 YUAN DO, JACK K 578.1 BLOOD IN STOOL 11/17/2013 YUAN DO, JACK K 789.06 ABDOMINAL PAIN EPIGASTRIC 11/17/2013 JOSIAH LERNER RASHEED S 578.1 BLOOD IN STOOL 11/17/2013 JOSIAH LERNER RASHEED S 789.06 ABDOMINAL PAIN EPIGASTRIC 11/17/2013 JOSIAH LERNER RASHEED S 578.1 BLOOD IN STOOL 11/17/2013 JOSIAH LERNER RASHEED S 789.06 ABDOMINAL PAIN EPIGASTRIC 11/17/2013 ARIAS GRAJEDA MD 578.1 BLOOD IN STOOL 11/17/2013 ARIAS GRAJEDA MD 789.06 ABDOMINAL PAIN EPIGASTRIC 11/17/2013 JOSIAH LERNER RASHEED S 578.1 BLOOD IN STOOL 11/17/2013 JOSIAH LERNER RASHEED S 789.06 ABDOMINAL PAIN EPIGASTRIC 11/17/2013 JOSIAH LERNER RASHEED S 578.1 BLOOD IN STOOL 11/17/2013 JOSIAH ROCK LATHER, RASHEED S 789.06 ABDOMINAL PAIN EPIGASTRIC 11/17/2013 YUAN DO, JACK K 578.1 BLOOD IN STOOL 11/17/2013 YUAN DO, JACK K 789.06 ABDOMINAL PAIN EPIGASTRIC 11/17/2013 JOSIAH ROCK LATHER, RASHEED S 578.1 BLOOD IN STOOL 11/17/2013 JOSIAH ROCK LATHER, RASHEED S 789.06 ABDOMINAL PAIN EPIGASTRIC 11/17/2013 JOSIAH ROCK LATHER, RASHEED S 578.1 BLOOD IN STOOL 11/17/2013 JOSIAH ROCK LATHER, RASHEED S 789.06 ABDOMINAL PAIN EPIGASTRIC 11/17/2013 JOSIAH ROCK LATHER, RASHEED S 578.1 BLOOD IN STOOL 11/17/2013 JOSIAH ROCK LATHER, ARSHEED S 789.06 ABDOMINAL PAIN EPIGASTRIC 12/17/2013 YUAN DO, JACK K 354.0 CARPAL TUNNEL SYNDROME 12/17/2013 JOSIAH LERNER, RASHEED S 354.0 CARPAL TUNNEL SYNDROME 12/17/2013 JOSIAH COVARRUBIASN, RASHEED S 354.0 CARPAL TUNNEL SYNDROME 12/17/2013 ARIAS GRAJEDA MD 354.0 CARPAL TUNNEL SYNDROME 12/17/2013 JOSIAH LERNER, RASHEED S 354.0 CARPAL TUNNEL SYNDROME 12/17/2013 JOSIAH ROCK LATHER, RASHEED S 354.0 CARPAL TUNNEL SYNDROME 12/17/2013 KWABENA HDEZ JACK K 354.0 CARPAL TUNNEL SYNDROME 12/17/2013 JOSIAH LERNER, RASHEED S 354.0 CARPAL TUNNEL SYNDROME 12/17/2013 JOSIAH COVARRUBIASN, RASHEED S 354.0 CARPAL TUNNEL SYNDROME 12/17/2013 JOSIAH ROCK LATHER, RASHEED S 354.0 CARPAL TUNNEL SYNDROME 12/18/2013 YUAN DO JACK K V76.10 BREAST CANCER SCREENING 12/18/2013 JOSIAH LERNER RASHEED S V76.10 BREAST CANCER SCREENING 12/18/2013 JOSIAH LERNER, RASHEED S V76.10 BREAST CANCER SCREENING 12/18/2013 ARIAS GRAJEDA MD V76.10 BREAST CANCER SCREENING 12/18/2013 NAKIA RAHMAN APRNNDA S V76.10 BREAST CANCER SCREENING 12/18/2013 JOSIAH ROCK LATHER, RASHEED S V76.10 BREAST CANCER SCREENING 12/18/2013 YUAN DO, JACK K V76.10 BREAST CANCER SCREENING 12/18/2013 JOSIAH ROCK LATHER, RASHEDE S V76.10 BREAST CANCER SCREENING 12/18/2013 JOSIAH ROCK LATHER, RASHEED S V76.10 BREAST CANCER SCREENING 12/18/2013 JOSIAH ROCK LATHER, RASHEED S V76.10 BREAST CANCER SCREENING 01/05/2014 JOSIAH ROCK LATHER, RASHEED S 356.9 NEUROPATHY 01/05/2014 JOSIAH ROCK LATHER, RASHEED S 599.0 URINARY TRACT INFECTION 01/05/2014 JOSIAH ROCK LATHER, RASHEED S 719.47 PAIN- FOOT 01/05/2014 JOSIAH ROCK LATHER, RASHEED S 356.9 NEUROPATHY 01/05/2014 JOSIAH ROCK LATHER, RASHEED S 599.0 URINARY TRACT INFECTION 01/05/2014 JOSIAH ROCK LATHER, RASHEED S 719.47 PAIN- FOOT 01/05/2014 ARIAS GRAJEDA MD 356.9 NEUROPATHY 01/05/2014 ARIAS GRAJEDA MD 599.0 URINARY TRACT INFECTION 01/05/2014 ARIAS GRAJEDA MD 719.47 PAIN- FOOT 01/05/2014 JOSIAH ROCK LATHER, RASHEED S 356.9 NEUROPATHY 01/05/2014 JOSIAH ROCK LATHER, RASHEED S 599.0 URINARY TRACT INFECTION 01/05/2014 JOSIAH ROCK LATHER, RASHEED S 719.47 PAIN- FOOT 01/05/2014 JOSIAH ROCK LATHER, RASHEED S 356.9 NEUROPATHY 01/05/2014 JOSIAH ROCK LATHER, RASHEED S 599.0 URINARY TRACT INFECTION 01/05/2014 JOSIAH ROCK LATHER, RASHEED S 719.47 PAIN- FOOT 01/05/2014 YUAN DO, JACK K 356.9 NEUROPATHY 01/05/2014 YUAN DO, JACK K 599.0 URINARY TRACT INFECTION 01/05/2014 YUAN DO, JACK K 719.47 PAIN- FOOT 01/05/2014 JOSIAH ROCK LATHER, RASHEED S 356.9 NEUROPATHY 01/05/2014 JOSIAH ROCK LATHER, RASHEED S 599.0 URINARY TRACT INFECTION 01/05/2014 JOSIAH ROCK LATHER, RASHEED S 719.47 PAIN- FOOT 01/05/2014 JOSIAH ROCK LATHER, RASHEED S 356.9 NEUROPATHY 01/05/2014 JOSIAH ROCK LATHER, RASHEED S 599.0 URINARY TRACT INFECTION 01/05/2014 JOSIAH ROCK LATHER, RASHEED S 719.47 PAIN- FOOT 01/05/2014 JOSIAH ROCK LATHER, RASHEED S 356.9 NEUROPATHY 01/05/2014 JOSIAH ROCK LATHER, RASHEED S 599.0 URINARY TRACT INFECTION 01/05/2014 JOSIAH ROCK LATHER, RASHEED S 719.47 PAIN- FOOT 01/30/2014 SAMEERA ESCOTO, JAMIE Ot 211.3 BENIGN NEOPLASM LG BOWEL 01/30/2014 SAMEERA ESCOTO, JAMIE Ot 455.0 INT HEMORRHOID W/O COMPL 01/30/2014 JAMIE LOVE MD Ot 455.3 EXT HEMORRHOID W/O COMPL 01/30/2014 SAMEERA ESCOTO, JAMIE Ot 562.10 DIVERTICULOSIS COLON (W/O MENT OF HEMORR 01/30/2014 SAMEERA ESCOTO, JAMIE Ot 564.00 UNSPEC CONSTIPATION 01/30/2014 SAMEERA ESCOTO, JAMIE Ot 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 02/02/2014 ARIAS GRAJEDA MD 211.9 POLYP- GI 02/02/2014 ARIAS GRAJEDA MD 455.6 HEMORRHOIDS NOS 02/02/2014 JOSIAH ROCK LATHER, RASHEED S 211.9 POLYP- GI 02/02/2014 JOSIAH ROCK LATHER, RASHEED S 455.6 HEMORRHOIDS NOS 02/02/2014 JOSIAH ROCK LATHER, RASHEED S 211.9 POLYP- GI 02/02/2014 JOSIAH ROCK LATHER, RASHEED S 455.6 HEMORRHOIDS NOS 02/02/2014 YUAN DO JACK K 211.9 POLYP- GI 02/02/2014 YUAN DO JACK K 455.6 HEMORRHOIDS NOS 02/02/2014 JOSIAH ROCK LATHER, RASHEED S 211.9 POLYP- GI 02/02/2014 JOSIAH ROCK LATHER, RASHEED S 455.6 HEMORRHOIDS NOS 02/02/2014 JOSIAH ROCK LATHER, RASHEED S 211.9 POLYP- GI 02/02/2014 RASHEED RAHMAN APRN S 455.6 HEMORRHOIDS NOS 02/02/2014 RASHEED RAHMAN APRN S 211.9 POLYP- GI 02/02/2014 NICOLA RAHMAN APRNA S 455.6 HEMORRHOIDS NOS 02/10/2014 JOSEE KIM, ALI FACP CCDS Ot 272.4 HYPERLIPIDEMIA NEC/NOS 02/10/2014 JOSEE ESCOTO FACC, ALI FACP CCDS Ot 278.00 OBESITY, NOS 02/10/2014 JOSEE ESCOTO FAC, ALI FACP CCDS Ot 305.1 TOBACCO USE DISORDER 02/10/2014 JOSEE ESCOTO FACC, ALI FACP CCDS Ot 401.9 HYPERTENSION NOS 02/10/2014 JOSEE KIMC, ALI FACP CCDS Ot 530.81 ESOPHAGEAL REFLUX 02/10/2014 JOSEE ESCOTO [facility], ALI FACP CCDS Ot 786.50 CHEST PAIN NOS 02/10/2014 JOSEE KIMC, ALI FACP CCDS Ot V17.3 FAM HX-ISCHEM HEART DIS 02/10/2014 JOSEE KIM, ALI FACP CCDS Ot V58.69 OTH MED,LT,CURRENT USE 02/10/2014 JOSEE KIM, ALI FACP CCDS Ot V85.37 BODY MASS INDEX 37.0-37.9, ADULT 03/04/2014 SOSA GUSMAN MD Ot 496 CHR AIRWAY OBSTRUCT NEC 03/04/2014 SOSA GUSMAN MD Ot 717.40 DERANG LAT MENISCUS NOS 03/04/2014 SOSA GUSMNA MD Ot V57.1 PHYSICAL THERAPY NEC 03/04/2014 SOSA GUSMAN MD Ot V58.69 OTH MED,LT,CURRENT USE 03/19/2014 RASHEED RAHMAN APRN S 729.82 CRAMP OF LIMB 03/19/2014 RASHEED RAHMAN APRN S V04.81 FLU SHOT 03/19/2014 RASHEED RAHMAN APRN S V15.82 NICOTINE ABUSE 03/19/2014 JACK YUAN DO K 729.82 CRAMP OF LIMB 03/19/2014 YUAN JACK HDEZ K V04.81 FLU SHOT 03/19/2014 JACK YUAN DO K V15.82 NICOTINE ABUSE 03/19/2014 JOSIAH COVARRUBIASN, RASHEED S 729.82 CRAMP OF LIMB 03/19/2014 JOSIAH ROCK LATHER, RASHEED S V04.81 FLU SHOT 03/19/2014 JOSIAH ROCK LATHER, RASHEED S V15.82 NICOTINE ABUSE 03/19/2014 JOSIAH ROCK LATHER, RASHEED S 729.82 CRAMP OF LIMB 03/19/2014 JOSIAH ROCK LATHER, RASHEED S V04.81 FLU SHOT 03/19/2014 JOSIAH ROCK LATHER, RASHEED S V15.82 NICOTINE ABUSE 03/19/2014 JOSIAH ROCK LATHER, RASHEED S 729.82 CRAMP OF LIMB 03/19/2014 JOSIAH ROCK LATHER, RASHEED S V04.81 FLU SHOT 03/19/2014 JOSIAH ROCK LATHER, RASHEED S V15.82 NICOTINE ABUSE 03/26/2014 JOSIAH LERNER RASHEED S 788.1 DYSURIA 03/26/2014 YUAN INDER HDEZA K 788.1 DYSURIA 03/26/2014 JOSIAH LERNER RASHEED S 788.1 DYSURIA 03/26/2014 JOSIAH LERNER RASHEED S 788.1 DYSURIA 03/26/2014 JOSIAH LERNER RASHEED S 788.1 DYSURIA 04/07/2014 RASHEED RAHMAN LIABILITY CLAIMS ADJUSTER Ot 719.46 JOINT PAIN-L/LEG 04/07/2014 RASHEED RAHMAN LIABILITY CLAIMS ADJUSTER Ot V57.1 PHYSICAL THERAPY NEC 04/10/2014 LIBERTY SANDOVAL ROCK LATHER Ot 491.21 OBSTR CHRONIC BRONCHITIS, W (ACUTE) EXAC 04/10/2014 LIBERTY SANDOVAL ROCK LATHER Ot 786.05 SHORTNESS OF BREATH 04/10/2014 LIBERTY SANDOVAL ROCK LATHER Ot 787.02 NAUSEA ALONE 04/10/2014 LIBERTY SANDOVAL ROCK LATHER Ot 787.91 DIARRHEA 04/17/2014 YUAN DOINDERA K 110.1 ONYCHOMYCOSIS 04/17/2014 YUAN DO JACK K 706.8 XEROSIS 04/17/2014 NAKIA RAHMAN APRNNDA S 110.1 ONYCHOMYCOSIS 04/17/2014 NAKIA RAHMAN APRNNDA S 706.8 XEROSIS 04/17/2014 JOSIAH ROCK LATHER, RASHEED S 110.1 ONYCHOMYCOSIS 04/17/2014 JOSIAH ROCK LATHER, RASHEED S 706.8 XEROSIS 04/17/2014 JOSIAH ROCK LATHER, RASHEED S 110.1 ONYCHOMYCOSIS 04/17/2014 JOSIAH ROCK LATHER, RASHEED S 706.8 XEROSIS 06/03/2014 JOSIAH ROCK LATHER, RASHEED S 466.0 BRONCHITIS, ACUTE 06/03/2014 JOSIAH ROCK LATHER, RASHEED S 466.0 BRONCHITIS, ACUTE 06/03/2014 JOSIAH ROCK LATHER, RASHEED S 466.0 BRONCHITIS, ACUTE 07/06/2014 JOSIAH ROCK LATHER, RASHEED S 719.41 PAIN- SHOULDER 07/27/2014 Ot 786.50 07/27/2014 Ot 715.36 07/27/2014 Ot 791.9 07/27/2014 Ot V57.1 07/27/2014 Ot V57.21 07/27/2014 Ot V72.63 07/27/2014 Ot V74.8 07/27/2014 RASHEED RAHMANP Ot V76.12 07/27/2014 RASEHED RAHMAN LIABILITY CLAIMS ADJUSTER Ot V76.12 07/27/2014 SAMEERA ESCOTO, JAMIE Ot V72.84 07/27/2014 NESS ESCOTO, SOSA Shelby Ot 717.7 07/27/2014 NESS ESCOTO, SOSA Shelby Ot V72.84 07/27/2014 NESS ESCOTO, SOSA Shelby Ot V74.8 09/23/2014 RYAN JONES MD Ot 272.4 HYPERLIPIDEMIA NEC/NOS 09/23/2014 RYAN JONES MD Ot 401.9 HYPERTENSION NOS 09/23/2014 RYAN JONES MD Ot 496 CHR AIRWAY OBSTRUCT NEC 09/23/2014 RYAN JONES MD Ot 530.81 ESOPHAGEAL REFLUX 09/23/2014 RYAN JONES MD Ot 596.51 HYPERTONICITY OF BLADDER 09/23/2014 RYAN JONES MD Ot 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 09/23/2014 KAREN ESCOTO, RYAN Moeller Ot 788.30 UNSPECIFIED URINARY INCONTINENCE 10/12/2014 Ot 786.50 10/12/2014 Ot 715.36 10/12/2014 Ot 791.9 10/12/2014 Ot V57.1 10/12/2014 Ot V57.21 10/12/2014 Ot V72.63 10/12/2014 Ot V74.8 10/12/2014 RASHEED RAHMANP Ot V76.12 10/12/2014 RASHEED RAHMANP Ot V76.12 10/12/2014 SAMEERA ESCOTO, JAMIE Ot [...] 10/29/2014 RASHEED RAHMAN Ot V76.12 10/29/2014 RASHEED RAHMAN Ot V76.12 10/29/2014 SAMEERA ESCOTO, JAMIE Ot V72.84 10/29/2014 NESS ESCOTO, SOSA P Ot 717.7 10/29/2014 NESS ESCOTO, SOSA P Ot V72.84 10/29/2014 NESS ESCOTO, SOSA P Ot V74.8 10/29/2014 NESS ESCOTO, SOSA P Ot 727.61 10/29/2014 KAREN ESCOTO, RYAN A Ot 599.82 10/29/2014 KAREN ESCOTO, RYAN A Ot 788.30 10/29/2014 KAREN ESCOTO, RYAN A Ot V72.84 10/29/2014 KAREN ESCOTO, RYAN Moeller Ot V74.8 10/29/2014 GELLENDER DO, MORAIMA Moeller Ot 719.46 10/29/2014 GELLENDER DO, MORAIMA Moeller Ot 724.2 10/29/2014 GELLENDER DO, MORAIMA Moeller Ot 959.7 10/29/2014 GELLENDER DO, MORAIMA Moeller [...] Moeller Ot E888.9 11/23/2014 GELLENDER DO, MORAIMA Sunni Ot 789.01 12/01/2014 GELLENDER DO, MORAIMA Moeller Ot 575.8 12/02/2014 RUFINA ESCOTO, NARAYAN Marr Ot 575.8 12/02/2014 RUFINA ESCOTO, NARAYAN Marr Ot V72.63 12/02/2014 RUFINA ESCOTO, NARAYAN Marr Ot V72.81 12/02/2014 RUFINA ESCOTO, NARAYAN Marr Ot V74.8 12/03/2014 BERT MORAIMA HDEZ Ot 575.8 12/05/2014 RUFINA ESCOTO, NARAYAN Marr [...] 01/13/2015 NESS ESCOTO, SOSA Shelby Ot V58.69 OTH MED,LT,CURRENT USE 01/19/2015 NESS ESCOTO, SOSA P Ot 727.61 01/19/2015 NESS ESCOTO, SOSA Shelby Ot V57.1 01/19/2015 NESS ESCOTO, SOSA P Ot V58.78 01/19/2015 NESS ESCOTO, SOSA P Ot 727.61 01/19/2015 NESS ESCOTO, SOSA Shelby Ot V57.1 01/19/2015 NESS ESCOTO, SOSA Shelby Ot V58.78 02/10/2015 NESS ESCOTO, SOSA hSelby Ot 727.61 ROTATOR CUFF RUPTURE 02/10/2015 SOSA GUSMAN MD Ot V57.1 PHYSICAL THERAPY NEC 02/10/2015 NESS ESCOTO, SOSA Shelby Ot V58.78 AFTERCARE POST SURGERY MUSCULOSKELETAL S 03/17/2015 Ot 786.50 03/17/2015 Ot 715.36 03/17/2015 Ot 791.9 03/17/2015 Ot V57.1 03/17/2015 Ot V57.21 03/17/2015 Ot V72.63 03/17/2015 Ot V74.8 03/17/2015 RASHEED RAHMAN Ot V76.12 03/17/2015 JOSIAH RASHEED DIAMOND Ot V76.12 03/17/2015 SAMEERA ESCOTO, JAMIE Ot V72.84 03/17/2015 NESS ESCOTO, SOSA Shelby Ot 717.7 03/17/2015 NESS ESCOTO, SOSA Shelby Ot V72.84 03/17/2015 NESS ESCOTO, SOSA P Ot V74.8 03/17/2015 NESS ESCOTO, SOSA Shelby Ot 727.61 03/17/2015 KAREN ESCOTO, RYAN A [...] Marr Ot V72.63 03/17/2015 RUFINA ESCOTO, NARAYAN Marr Ot V72.81 03/17/2015 RUFINA ESCOTO, NARAYAN Marr Ot V74.8 03/17/2015 NESS ESCOTO, SOSA Shelby Ot 715.31 03/17/2015 NESS ESCOTO, SOSA Shelby Ot 727.61 03/17/2015 NESS ESCOTO, SOSA Shelby Ot 840.7 03/17/2015 NESS ESCOTO, SOSA Shelby Ot V72.83 03/24/2015 NESS ESCOTO, SOSA Shelby Ot E78.5 HYPERLIPIDEMIA, UNSPECIFIED 03/24/2015 NESS ESCOTO, SOSA Shelby Ot G56.02 CARPAL TUNNEL SYNDROME, LEFT UPPER LIMB 03/24/2015 SOSA GUSMAN MD Ot I10 ESSENTIAL (PRIMARY) HYPERTENSION 03/24/2015 NESS ESCOTO, SOSA Shelby Ot J44.9 CHRONIC OBSTRUCTIVE PULMONARY DISEASE, U 04/08/2015 RASHEED RAHMAN Ot Z12.31 04/13/2015 RASHEED RAHMAN Ot Z12.31 04/21/2015 SOSA GUSMAN MD Ot [...] LABRUM LESION OF RIGHT 01/04/2016 LIBERTY SANDOVAL ROCK LATHER Ot F17.210 NICOTINE DEPENDENCE, CIGARETTES, UNCOMPL 01/04/2016 LIBERTY S[place]OVAL [place]OCK LATHER Ot T78.40XA ALLERGY, UNSPECIFIED, INITIAL ENCOUNTER 01/04/2016 Ot 715.36 LOC OSTEOARTH NOS-L/LEG 01/04/2016 Ot 791.9 ABN URINE FINDINGS NEC 01/04/2016 Ot V57.1 PHYSICAL THERAPY NEC 01/04/2016 Ot V57.21 ENCOUNTER FOR OCCUPATIONAL THERAPY 01/04/2016 Ot V72.63 PRE-PROCEDURAL LABORATORY EXAMINATION 01/04/2016 Ot V74.8 SCREEN-BACTERIAL DIS NEC 01/04/2016 RASHEED RAHMAN Ot V76.12 OTH SCREEN MAMMO-MALIGN NEOPLASM OF SAMANTHA 01/04/2016 RASHEED RAHMAN Ot V76.12 OTH SCREEN MAMMO-MALIGN NEOPLASM OF SAMANTHA 01/04/2016 SAMEERA ESCOTO, JAMIE Ot V72.84 EXAM PRE-OPERATIVE NOS 01/04/2016 NESS ESCOTO, SOSA Shelby Ot 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 PATELLAE 01/04/2016 NESS ESCOTO, SOSA Shelby Ot V72.84 EXAM PRE-OPERATIVE NOS 01/04/2016 NESS ESCOTO, SOSA Shelby Ot V74.8 SCREEN-BACTERIAL DIS NEC 01/04/2016 SOSA GUSMAN MD Ot 727.61 ROTATOR CUFF RUPTURE 01/04/2016 KAREN ESCOTO, RYAN Moeller Ot 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 01/04/2016 RYAN JONES MD Ot 788.30 UNSPECIFIED URINARY INCONTINENCE 01/04/2016 RYAN JONES MD Ot V72.84 EXAM PRE-OPERATIVE NOS 01/04/2016 RYAN JONES MD Ot V74.8 SCREEN-BACTERIAL DIS NEC 01/04/2016 MORAIMA NOEL DO Ot 719.46 JOINT PAIN-L/LEG 01/04/2016 MORAIMA NOEL DO Ot 724.2 LUMBAGO 01/04/2016 MORAIMA NOEL DO Ot 959.7 LOWER LEG INJURY NOS 01/04/2016 MORAIMA NOEL DO Ot E000.8 OTHER EXTERNAL CAUSE STATUS 01/04/2016 MORAIMA NOEL DO Ot E849.0 ACCIDENT IN HOME 01/04/2016 BERT HDEZMORAIMA Ot E888.9 FALL NOS 01/04/2016 MORAIMA NOEL DO Ot 789.01 ABDOMINAL PAIN, RIGHT UPPER QUADRANT 01/04/2016 MORAIMA NOEL DO Ot 575.8 DIS OF GALLBLADDER NEC 01/04/2016 RUFINA ESCOTO, NARAYAN Marr Ot 575.8 DIS OF GALLBLADDER NEC 01/04/2016 RUFINA ESCOTO, NARAYAN Marr Ot V72.63 PRE-PROCEDURAL LABORATORY EXAMINATION 01/04/2016 RUFINA ESCOTO, NARAYAN Marr Ot V72.81 UGBO-[id number]-[id number] CARDIOVASCULAR 01/04/2016 RUFINA ESCOTO, NARAYAN Marr Ot [...] TRACT INFECTION, SITE NOT SPECIF 01/04/2016 SOSA GUSMAN MD Ot S43.431D SUPERIOR GLENOID LABRUM LESION OF RIGHT 01/05/2016 LIBERTY S[place]AL [place]OCK LATHER Ot F17.210 NICOTINE DEPENDENCE, CIGARETTES, UNCOMPL 01/05/2016 LIBERTY [place] LATHER Ot T78.40XA ALLERGY, UNSPECIFIED, INITIAL ENCOUNTER 01/13/2016 DINO TILLMAN Ot R22.31 LOCALIZED SWELLING, MASS AND LUMP, RIGHT 02/04/2016 NESS ESCOTO, SOSA Shelby Ot S43.431D SUPERIOR GLENOID LABRUM LESION OF RIGHT 02/04/2016 NESS ESCOTO, SOSA Shelby Ot S43.431D SUPERIOR GLENOID LABRUM LESION OF RIGHT 02/04/2016 DINO TILLMAN Ot R22.31 LOCALIZED SWELLING, MASS AND LUMP, RIGHT 02/08/2016 SOSA GUSMAN MD Ot S43.431D SUPERIOR GLENOID LABRUM LESION OF RIGHT 02/08/2016 DINO TILLMAN Ot R22.31 LOCALIZED SWELLING, MASS AND LUMP, RIGHT 02/21/2016 SOSA GUSMAN MD Ot S43.431D SUPERIOR GLENOID LABRUM LESION OF RIGHT 04/03/2016 Ot 715.36 LOC OSTEOARTH NOS-L/LEG 04/03/2016 Ot 791.9 ABN URINE FINDINGS NEC 04/03/2016 Ot V57.1 PHYSICAL THERAPY NEC 04/03/2016 Ot V57.21 ENCOUNTER FOR OCCUPATIONAL THERAPY 04/03/2016 Ot V72.63 PRE-PROCEDURAL LABORATORY EXAMINATION 04/03/2016 Ot V74.8 SCREEN-BACTERIAL DIS NEC 04/03/2016 RASHEED RAHMAN Ot V76.12 OTH SCREEN MAMMO-MALIGN NEOPLASM OF SAMANTHA 04/03/2016 RASHEED RAHMAN Ot V76.12 OTH SCREEN MAMMO-MALIGN NEOPLASM OF SAMANTHA 04/03/2016 SAMEERA ESCOTO, JAMIE Ot V72.84 EXAM PRE-OPERATIVE NOS 04/03/2016 SOSA GUSMAN MD Ot 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 PATELLAE 04/03/2016 SOSA GUSMAN MD Ot V72.84 EXAM PRE-OPERATIVE NOS 04/03/2016 SOSA GUSMAN MD Ot V74.8 SCREEN-BACTERIAL DIS NEC 04/03/2016 SOSA GUSMAN MD Ot 727.61 ROTATOR CUFF RUPTURE 04/03/2016 KAREN ESCOTO, RYAN Moeller Ot 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 04/03/2016 KAREN ESCOTO, RYAN Moeller Ot 788.30 UNSPECIFIED URINARY INCONTINENCE 04/03/2016 RYAN JONES MD Ot V72.84 EXAM PRE-OPERATIVE NOS 04/03/2016 KAREN ESCOTO, RYAN Moeller Ot V74.8 SCREEN-BACTERIAL DIS NEC 04/03/2016 BERT HDEZ MORAIMA Moeller Ot 719.46 JOINT PAIN-L/LEG 04/03/2016 BERT HDEZ MORAIMA Moeller Ot 724.2 LUMBAGO 04/03/2016 BERT HDEZ MORAIMA Moeller Ot 959.7 LOWER LEG INJURY NOS 04/03/2016 MORAIMA NOEL DO Ot E000.8 OTHER EXTERNAL CAUSE STATUS 04/03/2016 MORAIMA NOEL DO Ot E849.0 ACCIDENT IN HOME 04/03/2016 BERT HDEZ MORAIMA Moeller Ot E888.9 FALL NOS 04/03/2016 BERT HDEZ MORAIMA Moeller Ot 789.01 ABDOMINAL PAIN, RIGHT UPPER QUADRANT 04/03/2016 BERT HDEZ MORAIMA Moeller Ot 575.8 DIS OF GALLBLADDER NEC 04/03/2016 RUFINA ESCOTO, NARAYAN Marr Ot 575.8 DIS OF GALLBLADDER NEC 04/03/2016 RUFINA ESCOTO, NARAYAN Marr Ot V72.63 PRE-PROCEDURAL LABORATORY EXAMINATION 04/03/2016 RUFINA ESCOTO, NARAYAN Marr Ot V72.81 KHFL-GPZ-PRQBONYYT CARDIOVASCULAR 04/03/2016 RUFINA ESCOTO, NARAYAN Marr Ot V74.8 SCREEN-BACTERIAL DIS NEC 04/03/2016 NESS ESCOTO, SOSA Shelby Ot 715.31 LOC OSTEOARTH NOS-SHLDER 04/03/2016 NESS ESCOTO, SOSA Shelby Ot 727.61 ROTATOR CUFF RUPTURE 04/03/2016 SOSA GUSMAN MD Ot 840.7 (SLAP) SUPERIOR GLENOID LABRUM LESIONS 04/03/2016 SOSA GUSMAN MD Ot V72.83 EXAM PRE-OPERATIVE NEC 04/03/2016 Ot [...] INFECTION, SITE NOT SPECIF 04/03/2016 DINO TILLMAN Ot R22.31 LOCALIZED SWELLING, MASS AND LUMP, RIGHT 04/03/2016 RASHEED RAHMAN Ot Z12.31 ENCNTR SCREEN MAMMOGRAM FOR MALIGNANT NE 04/03/2016 RASHEED RAHMAN Ot Z12.31 ENCNTR SCREEN MAMMOGRAM FOR MALIGNANT NE 04/04/2016 RASHEED RAHMAN Ot Z12.31 ENCNTR SCREEN MAMMOGRAM FOR MALIGNANT NE 04/12/2016 Ot 715.36 LOC OSTEOARTH NOS-L/LEG 04/12/2016 Ot 791.9 ABN URINE FINDINGS NEC 04/12/2016 Ot V57.1 PHYSICAL THERAPY NEC 04/12/2016 Ot V57.21 ENCOUNTER FOR OCCUPATIONAL THERAPY 04/12/2016 Ot V72.63 PRE-PROCEDURAL LABORATORY EXAMINATION 04/12/2016 Ot V74.8 SCREEN-BACTERIAL DIS NEC 04/12/2016 RASHEED RAHMAN Ot V76.12 OTH SCREEN MAMMO-MALIGN NEOPLASM OF SAMANTHA 04/12/2016 RASHEED RAHMAN Ot V76.12 OTH SCREEN MAMMO-MALIGN NEOPLASM OF SAMANTHA 04/12/2016 JAMIE LOVE MD Ot V72.84 EXAM PRE-OPERATIVE NOS 04/12/2016 NESS ESCOTO, SOSA Shelby Ot 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 PATELLAE 04/12/2016 SOSA GUSMAN MD Ot V72.84 EXAM PRE-OPERATIVE NOS 04/12/2016 NESS [...] Moeller Ot V74.8 SCREEN-BACTERIAL DIS NEC 04/12/2016 MORAIMA NOEL DO Sunni Ot 719.46 JOINT PAIN-L/LEG 04/12/2016 BERT HDEZ MORAIMA Moeller Ot 724.2 LUMBAGO 04/12/2016 BERT HDEZ MORAIMA Moeller Ot 959.7 LOWER LEG INJURY NOS 04/12/2016 MORAIMA NOEL DO Ot E000.8 OTHER EXTERNAL CAUSE STATUS 04/12/2016 BERT HDEZ MORAIMA Moeller Ot E849.0 ACCIDENT IN HOME 04/12/2016 BERT HDEZ MORAIMA Moeller Ot E888.9 FALL NOS 04/12/2016 MORAIMA NOEL DO Ot 789.01 ABDOMINAL PAIN, RIGHT UPPER QUADRANT 04/12/2016 BERT HDEZ MORAIMA Moeller Ot 575.8 DIS OF GALLBLADDER NEC 04/12/2016 RUFINA ESCOTO, NARAYAN Marr Ot 575.8 DIS OF GALLBLADDER NEC 04/12/2016 RUFINA ESCOTO, NARAYAN Marr Ot V72.63 PRE-PROCEDURAL LABORATORY EXAMINATION 04/12/2016 RUFINA ESCOTO, NARAYAN Marr Ot V72.81 [id number]-HBK-[id number] CARDIOVASCULAR 04/12/2016 RUFINA ESCOTO, NARAYAN Marr Ot [...] TUNNEL SYNDROME, RIGHT UPPER LIMB 04/12/2016 SOSA GUSMAN MD Ot Z01.818 ENCOUNTER FOR OTHER PREPROCEDURAL EXAMIN 04/12/2016 MORAIMA NOEL DO Ot J40 BRONCHITIS, NOT SPECIFIED ACUTE OR CH 04/12/2016 MORAIMA NOEL DO Ot J44.9 CHRONIC OBSTRUCTIVE PULMONARY DISEASE, U 04/12/2016 MORAIMA NOEL DO Ot N39.0 URINARY TRACT INFECTION, SITE NOT SPECIF 04/12/2016 DINO TILLMAN Ot R22.31 LOCALIZED SWELLING, MASS [...] M19.90 UNSPECIFIED OSTEOARTHRITIS, UNSPECIFIED 04/13/2016 LAURA ROBLERO MD, Ot M54.9 DORSALGIA, UNSPECIFIED 04/13/2016 LAURA ROBLERO MD, Ot N17.9 ACUTE KIDNEY FAILURE, UNSPECIFIED 04/13/2016 LAURA ROBLERO MD, Ot N31.9 NEUROMUSCULAR DYSFUNCTION OF BLADDER, UN 04/13/2016 LAURA ROBLERO MD Ot Z96.651 PRESENCE OF RIGHT ARTIFICIAL KNEE JOINT 06/01/2016 RASHEED RAHMANP Ot Z12.31 ENCNTR SCREEN MAMMOGRAM FOR MALIGNANT NE 07/13/2016 YAMILET SEGAL MD Ot E87.6 HYPOKALEMIA 07/13/2016 YAMILET SEGAL MD Ot F15.10 OTHER STIMULANT ABUSE, UNCOMPLICATED 07/13/2016 YAMILET SEGAL MD Ot F17.210 NICOTINE DEPENDENCE, CIGARETTES, UNCOMPL 07/13/2016 YAMILET SEGAL MD Ot F41.9 ANXIETY DISORDER, UNSPECIFIED 07/13/2016 YAMILET SEGAL MD Ot I10 ESSENTIAL (PRIMARY) HYPERTENSION 07/13/2016 YAMILET SEGAL MD, Ot J44.9 CHRONIC OBSTRUCTIVE PULMONARY DISEASE, U 07/13/2016 YAMILET SEGAL MD, Ot J45.909 UNSPECIFIED ASTHMA, UNCOMPLICATED 07/13/2016 YAMILET SEGAL MD, Ot K21.9 GASTRO-ESOPHAGEAL REFLUX DISEASE WITHOUT 07/13/2016 YAMILET SEGAL MD Ot L08.9 LOCAL INFECTION OF THE SKIN AND SUBCUTAN 07/13/2016 YAMILET SEGAL MD Ot M19.91 PRIMARY OSTEOARTHRITIS, UNSPECIFIED SITE 07/13/2016 YAMILET SEGAL MD, Ot M54.2 CERVICALGIA 07/13/2016 YAMILET SEGAL MD, Ot M54.9 DORSALGIA, UNSPECIFIED 07/13/2016 YAMILET SEGAL MD, Ot N31.9 NEUROMUSCULAR DYSFUNCTION [...] Ot K21.9 GASTRO-ESOPHAGEAL REFLUX DISEASE WITHOUT 07/13/2016 GAULT MD, YAMILET R Ot L08.9 LOCAL INFECTION OF THE SKIN [...] M19.91 PRIMARY OSTEOARTHRITIS, UNSPECIFIED SITE 07/14/2016 YAMILET SEAGL MD Ot M54.2 CERVICALGIA 07/14/2016 YAMILET SEGAL [...] Ot F15.10 OTHER STIMULANT ABUSE, UNCOMPLICATED 07/15/2016 GAULT MD, YAMILET R Ot F17.210 NICOTINE DEPENDENCE, CIGARETTES, UNCOMPL 07/15/2016 YAMILET SEGAL MD Ot F41.9 ANXIETY DISORDER, UNSPECIFIED 07/15/2016 YAMILET SEGAL MD, Ot I10 ESSENTIAL (PRIMARY) HYPERTENSION 07/15/2016 YAMILET [...] Ot M54.2 CERVICALGIA 07/15/2016 YAMILET SEGAL MD Ot M54.9 DORSALGIA, UNSPECIFIED 07/15/2016 YAMILET SEGAL [...] DEPRESSIVE DISORDER, SINGLE EPISOD 07/15/2016 YAMILET SEGAL MD Ot F41.9 ANXIETY [...] BLADDER, UN 07/15/2016 YAMILET SEGAL MD Ot N61.0 MASTITIS WITHOUT ABSCESS 07/15/2016 YAMILET SEGAL MD Ot R51 HEADACHE 07/15/2016 YAMILET SEGAL MD Ot T43.621A POISONING BY AMPHETAMINES, ACCIDENTAL (U 07/15/2016 YAMILET SEGAL MD Ot Z91.81 HISTORY OF FALLING 07/29/2016 Ot 715.36 LOC OSTEOARTH NOS-L/LEG 07/29/2016 Ot 791.9 ABN URINE FINDINGS NEC 07/29/2016 Ot V57.1 PHYSICAL THERAPY NEC 07/29/2016 Ot V57.21 ENCOUNTER FOR OCCUPATIONAL THERAPY 07/29/2016 Ot V72.63 PRE-PROCEDURAL LABORATORY EXAMINATION 07/29/2016 Ot V74.8 SCREEN-BACTERIAL DIS NEC 07/29/2016 RASHEED RAHMAN Ot V76.12 OTH SCREEN MAMMO-MALIGN NEOPLASM OF SAMANTHA 07/29/2016 RASHEED RAHMAN Ot V76.12 OTH SCREEN MAMMO-MALIGN NEOPLASM OF SAMANTHA 07/29/2016 JAMIE LOVE MD Ot V72.84 EXAM PRE-OPERATIVE NOS 07/29/2016 SOSA GUSMAN MD Ot 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 PATELLAE 07/29/2016 SOSA GUSMAN MD Ot V72.84 EXAM PRE-OPERATIVE NOS 07/29/2016 SOSA GUSMAN MD Ot V74.8 SCREEN-BACTERIAL DIS NEC 07/29/2016 SOSA GUSMAN MD Ot 727.61 ROTATOR CUFF RUPTURE 07/29/2016 RYAN JONES MD Ot 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 07/29/2016 RYAN JONES MD Ot 788.30 UNSPECIFIED URINARY INCONTINENCE 07/29/2016 KAREN ESCOTO, RYAN Moeller Ot V72.84 EXAM PRE-OPERATIVE NOS 07/29/2016 KAREN ESCOTO, RYAN Moeller Ot V74.8 SCREEN-BACTERIAL DIS NEC 07/29/2016 MORAIMA NOEL DO Ot 719.46 JOINT PAIN-L/LEG 07/29/2016 BERT HDEZ MORAIMA Moeller Ot 724.2 LUMBAGO 07/29/2016 BERT HDEZ, MORAIMA Moeller Ot 959.7 LOWER LEG INJURY NOS 07/29/2016 MORAIMA NOEL DO Ot E000.8 OTHER EXTERNAL CAUSE STATUS 07/29/2016 MORAIMA NOEL DO Ot E849.0 ACCIDENT IN HOME 07/29/2016 MORAIMA NOEL DO Ot E888.9 FALL NOS 07/29/2016 MORAIMA NOEL DO Ot 789.01 ABDOMINAL PAIN, RIGHT UPPER QUADRANT 07/29/2016 BERT HDEZ MORAIMA Moeller Ot 575.8 DIS OF GALLBLADDER NEC 07/29/2016 RUFINA ESCOTO, NARAYAN Marr Ot 575.8 DIS OF GALLBLADDER NEC 07/29/2016 RUFINA ESCOTO, NARAYAN Marr Ot V72.63 PRE-PROCEDURAL LABORATORY EXAMINATION 07/29/2016 RUFINA ESCOTO, NARAYAN Marr Ot V72.81 IRYI-RPC-VBQZZOWUU CARDIOVASCULAR 07/29/2016 RUFINA ESCOTO, NARAYAN Marr Ot V74.8 SCREEN-BACTERIAL DIS NEC 07/29/2016 NESS ESCOTO, SOSA Shelby Ot 715.31 LOC OSTEOARTH NOS-SHLDER 07/29/2016 NESS ESCOTO, SOSA Shelby Ot 727.61 ROTATOR CUFF RUPTURE 07/29/2016 SOSA GUSMAN MD Ot 840.7 (SLAP) SUPERIOR [...] ENCOUNTER FOR SCREENING FOR OTHER DISORD 07/29/2016 SOSA GUSMAN MD Ot G56.01 CARPAL TUNNEL SYNDROME, RIGHT UPPER LIMB 07/29/2016 SOSA GUSMAN MD Ot Z01.818 ENCOUNTER FOR OTHER PREPROCEDURAL EXAMIN 07/29/2016 MORAIMA NOEL DO Ot J40 BRONCHITIS, NOT SPECIFIED ACUTE OR CH 07/29/2016 MORAIMA NOEL DO Ot J44.9 CHRONIC OBSTRUCTIVE PULMONARY DISEASE, U 07/29/2016 MORAIMA NOEL DO Ot N39.0 URINARY TRACT INFECTION, SITE NOT SPECIF 07/29/2016 TILLMAN DINO Radu FIELDS Ot R22.31 LOCALIZED SWELLING, MASS AND LUMP, RIGHT 07/29/2016 RASHEED RAHMAN Ot Z12.31 ENCNTR SCREEN MAMMOGRAM FOR MALIGNANT NE 07/31/2016 SOSA GUSMAN MD Ot M75.121 COMPLETE ROTATR-CUFF TEAR/RUPTR OF R JOSSY 08/03/2016 SOSA GUSMAN MD Ot M75.121 COMPLETE ROTATR-CUFF TEAR/RUPTR OF R JOSSY 08/04/2016 SOSA GUSMAN MD Ot M75.121 COMPLETE ROTATR-CUFF TEAR/RUPTR OF R JOSSY 08/21/2016 SOSA GUSMAN MD Ot M75.121 COMPLETE ROTATR-CUFF [...] ENCOUNTER FOR OCCUPATIONAL THERAPY 10/25/2016 Ot V72.63 PRE-PROCEDURAL LABORATORY EXAMINATION 10/25/2016 Ot V74.8 SCREEN-BACTERIAL DIS NEC 10/25/2016 RASHEED RAHMAN DIAMOND Ot V76.12 OTH SCREEN MAMMO-MALIGN NEOPLASM OF SAMANTHA 10/25/2016 RASHEED RAHMAN DIAMOND Ot V76.12 OTH SCREEN [...] Ot 959.7 LOWER LEG INJURY NOS 10/25/2016 MORAIMA NOEL DO Ot E000.8 OTHER EXTERNAL CAUSE STATUS 10/25/2016 MORAIMA NOEL DO Ot E849.0 ACCIDENT IN HOME 10/25/2016 MORAIMA NOEL DO Ot E888.9 FALL NOS 10/25/2016 TRAVISMORAIMA PETE DO Ot 789.01 ABDOMINAL PAIN, RIGHT UPPER QUADRANT 10/25/2016 MORAIMA NOEL DO Ot 575.8 DIS OF GALLBLADDER NEC 10/25/2016 RUFINA ESCOTO, NARAYAN Marr Ot 575.8 DIS OF GALLBLADDER NEC 10/25/2016 RUFINA ESCOTO, NARAYAN Marr Ot V72.63 PRE-PROCEDURAL LABORATORY EXAMINATION 10/25/2016 RUFINA ESCOTO, NARAYAN Marr Ot V72.81 EPGC-UQC-NHSHYEMNF CARDIOVASCULAR 10/25/2016 RUFINA ESCOTO, NARAYAN Marr Ot V74.8 SCREEN-BACTERIAL DIS NEC 10/25/2016 SOSA [...] COMPLETE ROTATR-CUFF TEAR/RUPTR OF R JOSSY 10/31/2016 CLIVE ESCOTO, MEDARDO C Ot Z51.81 ENCOUNTER FOR THERAPEUTIC DRUG LEVEL MON 10/31/2016 MEDARDO DUFFY MD Ot Z79.899 OTHER PROPELLER ENGINEER (CURRENT) DRUG THERAPY 11/17/2016 MEDARDO DUFFY MD Ot Z51.81 ENCOUNTER FOR THERAPEUTIC DRUG LEVEL MON 11/17/2016 MEDARDO DUFFY MD Ot Z79.899 OTHER ASSISTED (CURRENT) DRUG THERAPY 11/21/2016 MEDARDO DUFFY MD Ot Z51.81 ENCOUNTER FOR THERAPEUTIC DRUG LEVEL MON 11/21/2016 MEDARDO DUFFY MD Ot Z79.899 OTHER PROPELLER ENGINEER (CURRENT) DRUG THERAPY 05/01/2017 RASHEED RAHMAN Ot V76.12 OTH SCREEN MAMMO-MALIGN NEOPLASM OF SAMANTHA 05/01/2017 RASHEED RAHMAN Ot V76.12 OTH SCREEN MAMMO-MALIGN NEOPLASM OF SAMANTHA 05/01/2017 JAMIE LOVE MD Ot V72.84 EXAM PRE-OPERATIVE NOS 05/01/2017 ENSS ESCOTO, SOSA Shelby Ot 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 PATELLAE 05/01/2017 SOSA GUSMAN MD Ot V72.84 EXAM PRE-OPERATIVE NOS 05/01/2017 SOSA GUSMAN MD Ot V74.8 SCREEN-BACTERIAL DIS NEC 05/01/2017 SOSA GUSMAN MD Ot 727.61 ROTATOR CUFF RUPTURE 05/01/2017 KAREN ESCOTO, RYAN Moeller Ot 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 05/01/2017 RYAN JONES MD Ot 788.30 UNSPECIFIED URINARY INCONTINENCE 05/01/2017 RYAN JONES MD Ot V72.84 EXAM PRE-OPERATIVE NOS 05/01/2017 RYAN JONES MD Ot V74.8 SCREEN-BACTERIAL DIS NEC 05/01/2017 MOARIMA NOEL DO Ot 719.46 JOINT PAIN-L/LEG 05/01/2017 [...] 05/01/2017 RUFINA ESCOTO, NARAYAN Marr Ot V72.81 WYGN-YCX-RHCQYSJLE CARDIOVASCULAR 05/01/2017 RUFINA ESCOTO, NARAYAN Marr Ot V74.8 SCREEN-BACTERIAL DIS NEC 05/01/2017 NESS ESCOTO, SOSA Shelby Ot 715.31 LOC OSTEOARTH NOS-SHLDER 05/01/2017 NESS ESCOTO, SOSA Shelby Ot 727.61 ROTATOR CUFF RUPTURE 05/01/2017 NESS ESCOTO, SOSA Shelby Ot 840.7 (SLAP) [...] ENCOUNTER FOR SCREENING FOR OTHER DISORD 05/01/2017 NESS ESCOTO, SOSA Shelby Ot G56.01 CARPAL TUNNEL SYNDROME, RIGHT UPPER LIMB 05/01/2017 NESS ESCOTO, SOSA Shelby Ot Z01.818 ENCOUNTER [...] ENCNTR SCREEN MAMMOGRAM FOR MALIGNANT NE 05/01/2017 NESS ESCOTO, SOSA Shelby Ot M75.121 COMPLETE ROTATR-CUFF TEAR/RUPTR OF R JOSSY 05/01/2017 MEDARDO DUFFY MD Ot Z51.81 ENCOUNTER FOR THERAPEUTIC DRUG LEVEL MON 05/01/2017 MEDARDO DUFFY MD Ot Z79.899 OTHER PROPELLER ENGINEER (CURRENT) DRUG THERAPY 05/01/2017 MEDARDO DUFFY MD Ot Z12.31 ENCNTR SCREEN MAMMOGRAM FOR MALIGNANT NE 05/02/2017 PAMELA ESCOTO, JEN Zhong Ot M25.811 OTHER SPECIFIED JOINT DISORDERS, RIGHT S 05/11/2017 JOSEE ESCOTO FACC, ALI FACP CCDS Ot E78.4 OTHER HYPERLIPIDEMIA 05/11/2017 JOSEE ESCOTO FACC, ALI FACP CCDS Ot I10 ESSENTIAL (PRIMARY) HYPERTENSION 05/11/2017 JOSEE ESCOTO FACC, ALI FACP CCDS Ot J43.8 OTHER EMPHYSEMA 05/11/2017 JOSEE ESCOTO FACC, ALI FACP CCDS Ot R06.02 SHORTNESS OF BREATH 05/11/2017 JOSEE ESCOTO FACC, ALI FACP CCDS [...] MD Ot V72.84 EXAM PRE-OPERATIVE NOS 05/21/2017 KAREN ESCOTO, RYAN Moeller Ot V74.8 SCREEN-BACTERIAL DIS NEC 05/21/2017 MORAIMA [...] 05/21/2017 RUFINA ESCOTO, NARAYAN Marr Ot V72.81 DKBG-PGB-CPGWHIIYF CARDIOVASCULAR 05/21/2017 RUFINA ESCOTO, NARAYAN Marr Ot V74.8 SCREEN-BACTERIAL DIS NEC 05/21/2017 NESS ESCOTO, SOSA Shebly Ot 715.31 LOC OSTEOARTH NOS-SHLDER 05/21/2017 SOSA GUSMAN MD Ot 727.61 ROTATOR CUFF RUPTURE 05/21/2017 SOSA GUSMAN MD Ot 840.7 (SLAP) SUPERIOR [...] URINARY TRACT INFECTION, SITE NOT SPECIF 05/21/2017 PRIMO DINO Radu LIABILITY CLAIMS ADJUSTER Ot R22.31 LOCALIZED SWELLING, MASS AND LUMP, RIGHT 05/21/2017 RASHEED RAHMAN Ot Z12.31 ENCNTR SCREEN MAMMOGRAM FOR MALIGNANT NE 05/21/2017 SOSA GUSMAN MD Ot M75.121 COMPLETE ROTATR-CUFF TEAR/RUPTR OF R JOSSY 05/21/2017 MEDARDO DUFFY MD Ot Z51.81 ENCOUNTER FOR THERAPEUTIC DRUG LEVEL MON 05/21/2017 MEDARDO DUFFY MD Ot Z79.899 OTHER ASSISTED (CURRENT) DRUG THERAPY 05/21/2017 MEDARDO DUFFY MD, Ot Z12.31 ENCNTR SCREEN MAMMOGRAM FOR MALIGNANT NE 05/21/2017 JEN SANTIAGO MD Ot M25.811 OTHER SPECIFIED JOINT DISORDERS, RIGHT S 05/21/2017 JOSEE ESCOTO FACC, ALI FACP CCDS Ot E78.4 OTHER HYPERLIPIDEMIA 05/21/2017 JOSEE ESCOTO FACC, ALI FACP CCDS Ot I10 ESSENTIAL (PRIMARY) HYPERTENSION 05/21/2017 JOSEE ESCOTO FACC, ALI FACP CCDS Ot J43.8 OTHER EMPHYSEMA 05/21/2017 JOSEE ESCOTO FACC, ALI FACP CCDS Ot R06.02 SHORTNESS OF BREATH 05/21/2017 JOSEE ESCOTO FACC, ALI FACP CCDS Ot Z72.0 TOBACCO USE 05/22/2017 JEN SANTIAGO MD Ot M25.811 OTHER SPECIFIED JOINT DISORDERS, RIGHT S 05/29/2017 MEDARDO DUFFY MD, Ot Z12.31 ENCNTR SCREEN [...] FACP CCDS Ot Z72.0 TOBACCO USE 06/05/2017 CLIVE ESCOTO, MEDARDO Chowdhury Ot Z12.31 ENCNTR SCREEN MAMMOGRAM FOR MALIGNANT [...] OF TOBACCO CIGARETTES, SELF 06/22/2017 SOSA RESENDIZ MD, Ot 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 06/22/2017 SOSA RESENDIZ MD, Ot T65.222D TOXIC EFFECT OF TOBACCO CIGARETTES, SELF 07/03/2017 SOSA RESENDIZ MD, Ot 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 07/03/2017 MARTÍN ESCOTO SOSA Tellez Ot T65.222D TOXIC EFFECT OF TOBACCO CIGARETTES, [...] Ot R10.13 EPIGASTRIC PAIN 07/19/2017 GERMAN HENDERSON MD, Ot Z87.448 PERSONAL HISTORY OF OTHER DISEASES OF UR 07/19/2017 GERMAN HENDERSON MD, Ot Z88.2 ALLERGY STATUS TO SULFONAMIDES STATUS 07/19/2017 GERMAN HENDERSON MD, Ot Z88.5 ALLERGY STATUS TO NARCOTIC AGENT STATUS 07/19/2017 GERMAN HENDERSON MD, Ot Z88.8 ALLERGY STATUS TO OTH DRUG/MEDS/BIOL SUB 07/19/2017 GERMAN HENDERSON MD Ot Z90.710 ACQUIRED ABSENCE [...] Ot R10.13 EPIGASTRIC PAIN 07/23/2017 GERMAN HENDERSON MD, Ot Z87.448 PERSONAL HISTORY OF OTHER DISEASES OF UR 07/23/2017 GERMAN HENDERSON MD Ot Z88.2 ALLERGY STATUS TO SULFONAMIDES STATUS [...] PAIN IN LEFT SHOULDER 11/09/2017 JEN SANTIAGO MD Ot M25.612 STIFFNESS OF LEFT SHOULDER, NOT ELSEWHER 11/09/2017 JEN SANTIAGO MD Ot Z47.89 ENCOUNTER FOR OTHER ORTHOPEDIC AFTERCARE 02/26/2018 RASHEED RAHMAN Ot V76.12 OTH SCREEN MAMMO-MALIGN NEOPLASM OF SAMANTHA 02/26/2018 RASHEED RAHMAN Ot V76.12 OTH SCREEN MAMMO-MALIGN NEOPLASM OF SAMANTHA 02/26/2018 JAMIE LOVE MD Ot V72.84 EXAM PRE-OPERATIVE NOS 02/26/2018 NESS ESCOTO, SOSA Shelby Ot 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 PATELLAE 02/26/2018 NESS ESCOTO, SOSA Shelby Ot V72.84 EXAM PRE-OPERATIVE NOS 02/26/2018 NESS ESCOTO, SOSA Shelby Ot V74.8 SCREEN-BACTERIAL DIS NEC 02/26/2018 NESS ESCOTO, SOSA Shelby Ot 727.61 ROTATOR CUFF RUPTURE 02/26/2018 KAREN ESCOTO, RYAN Moeller Ot 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 02/26/2018 KAREN ESCOTO, RYAN Moeller Ot 788.30 UNSPECIFIED URINARY INCONTINENCE 02/26/2018 KAREN ESCOTO, RYAN A Ot V72.84 EXAM PRE-OPERATIVE NOS 02/26/2018 KAREN ESCOTO, RYAN A Ot V74.8 SCREEN-BACTERIAL DIS NEC 02/26/2018 GELLENDER DO, MORAIMA A Ot 719.46 JOINT PAIN-L/LEG 02/26/2018 TRAVISLENDER DO, MORAIMA Moeller Ot 724.2 LUMBAGO 02/26/2018 GELLENDER DO, MORAIMA A Ot 959.7 LOWER LEG INJURY NOS 02/26/2018 GELLENDER DO, MORAIMA A Ot E000.8 OTHER EXTERNAL CAUSE STATUS 02/26/2018 MAXIMUSDER DO, MORAIMA Moeller Ot E849.0 ACCIDENT IN HOME 02/26/2018 TRAVISLENDER DO, MORAIMA A Ot E888.9 FALL NOS 02/26/2018 TRAVISLENDER DO, MORAIMA Moeller Ot 789.01 ABDOMINAL PAIN, RIGHT UPPER QUADRANT 02/26/2018 MAXIMUSDER DO, MORAIMA A Ot 575.8 DIS OF GALLBLADDER NEC 02/26/2018 RUFINA ESCOTO, NARAYAN Marr Ot 575.8 DIS OF GALLBLADDER NEC 02/26/2018 RUFINA ESCOTO, NARAYAN Marr Ot V72.63 PRE-PROCEDURAL LABORATORY EXAMINATION 02/26/2018 RUFINA ESCOTO, NARAYAN Marr Ot V72.81 [id number] CARDIOVASCULAR 02/26/2018 RUFINA ESCOTO, NARAYAN Marr Ot [...] Ot M75.121 COMPLETE ROTATR-CUFF TEAR/RUPTR OF R JSOSY 02/26/2018 MEDARDO DUFFY MD Ot Z51.81 ENCOUNTER FOR THERAPEUTIC DRUG LEVEL MON 02/26/2018 MEDARDO DUFFY MD Ot Z79.899 OTHER ASSISTED (CURRENT) DRUG THERAPY 02/26/2018 MEDARDO DUFFY MD Ot Z12.31 ENCNTR SCREEN MAMMOGRAM FOR MALIGNANT NE 02/26/2018 JEN SANTIAGO MD Ot M25.811 OTHER SPECIFIED JOINT DISORDERS, RIGHT S 02/26/2018 JOSEE ESCOTO FACC, ALI FACP CCDS Ot E78.4 OTHER HYPERLIPIDEMIA 02/26/2018 JOSEE ESCOTO FACC, ALI FACP CCDS Ot I10 ESSENTIAL (PRIMARY) HYPERTENSION 02/26/2018 JOSEE ESCOTO FACC, ALI FACP CCDS Ot J43.8 OTHER EMPHYSEMA 02/26/2018 JOSEE ESCOTO [facility] FACP CCDS Ot R06.02 SHORTNESS OF BREATH 02/26/2018 JOSEE ESCOTO [facility] FACP CCDS Ot Z72.0 TOBACCO USE 02/26/2018 SOSA RESENDIZ MD Ot 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 02/26/2018 SOSA RESENDIZ MD Ot T65.222D TOXIC EFFECT OF TOBACCO CIGARETTES, SELF 02/26/2018 SOSA RESENDIZ MD Ot 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 02/26/2018 SOSA RESENDIZ MD Ot T65.222D TOXIC EFFECT OF TOBACCO CIGARETTES, SELF 02/26/2018 COURTNEY HONG LIABILITY CLAIMS ADJUSTER Ot I70.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 02/26/2018 BAICOURTNEY MOSS LIABILITY CLAIMS ADJUSTER Ot I70.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 02/26/2018 BAIMACOURTNEY LIABILITY CLAIMS ADJUSTER Ot I70.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 02/26/2018 RASHEED RAHMAN Ot V76.12 OTH SCREEN MAMMO-MALIGN NEOPLASM OF SAMANTHA 02/26/2018 RASHEED RAHMAN Ot V76.12 OTH SCREEN MAMMO-MALIGN NEOPLASM OF SAMANTHA 02/26/2018 JAMIE LOVE MD Ot V72.84 EXAM PRE-OPERATIVE NOS 02/26/2018 [...] Ot V72.84 EXAM PRE-OPERATIVE NOS 02/26/2018 KAREN MD, RYAN A Ot V74.8 SCREEN-BACTERIAL DIS NEC 02/26/2018 BERT HDEZ, MORAIMA Moeller Ot 719.46 JOINT PAIN-L/LEG 02/26/2018 MORAIMA NOEL DO Ot 724.2 LUMBAGO 02/26/2018 MORAIMA NOEL DO Ot 959.7 LOWER LEG INJURY NOS 02/26/2018 MORAIMA NOEL DO Ot E000.8 OTHER EXTERNAL CAUSE STATUS 02/26/2018 MORAIMA NOEL DO Ot E849.0 ACCIDENT IN HOME 02/26/2018 MORAIMA NOEL DO Ot E888.9 FALL NOS 02/26/2018 MORAIMA NOEL DO Ot 789.01 ABDOMINAL PAIN, RIGHT UPPER QUADRANT 02/26/2018 MORAIMA NOEL DO Ot 575.8 DIS OF GALLBLADDER NEC 02/26/2018 RUFINA ESCOTO, NARAYAN Marr Ot 575.8 DIS OF GALLBLADDER NEC 02/26/2018 RUFINA ESCOTO, NARAYAN Marr Ot V72.63 PRE-PROCEDURAL LABORATORY EXAMINATION 02/26/2018 RUFINA ESCOTO, NARAYAN Marr Ot V72.81 [id number] CARDIOVASCULAR 02/26/2018 RUFINA ESCOTO, NARAYAN Marr Ot V74.8 SCREEN-BACTERIAL DIS NEC 02/26/2018 NESS ESCOTO, SOAS Shelby Ot 715.31 LOC OSTEOARTH NOS-SHLDER 02/26/2018 NESS ESCOTO, SOSA Shelby Ot 727.61 ROTATOR CUFF RUPTURE 02/26/2018 NESS ESCOTO, SOSA Shelby Ot 840.7 (SLAP) SUPERIOR GLENOID LABRUM LESIONS 02/26/2018 NESS ESCOTO, SOSA Shelby Ot V72.83 EXAM PRE-OPERATIVE NEC 02/26/2018 Ot [...] URINARY TRACT INFECTION, SITE NOT SPECIF 02/26/2018 TILLMAN DINO Radu LIABILITY CLAIMS ADJUSTER Ot R22.31 LOCALIZED SWELLING, MASS AND LUMP, RIGHT 02/26/2018 RASHEED RAHMANP Ot Z12.31 ENCNTR SCREEN MAMMOGRAM FOR MALIGNANT NE 02/26/2018 NESS ESCOTO, SOSA Shelby Ot M75.121 COMPLETE ROTATR-CUFF TEAR/RUPTR OF R JOSSY 02/26/2018 CLIVE ESCOTO, MEDARDO Chowdhury Ot Z51.81 ENCOUNTER FOR THERAPEUTIC DRUG LEVEL MON 02/26/2018 CLIVE ESCOTO, MEDARDO Chowdhury Ot Z79.899 OTHER ASSISTED (CURRENT) DRUG THERAPY 02/26/2018 MEDARDO DUFFY MD [...] TOBACCO CIGARETTES, SELF 02/26/2018 BAIMA, COURTNEY L LIABILITY CLAIMS ADJUSTER Ot I70.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 02/28/2018 RASHEED RAHMAN LIABILITY CLAIMS ADJUSTER Ot V76.12 OTH SCREEN MAMMO-MALIGN NEOPLASM OF SAMANTHA 02/28/2018 RASHEED RAHMAN LIABILITY CLAIMS ADJUSTER Ot V76.12 OTH SCREEN MAMMO-MALIGN NEOPLASM OF SAMANTHA 02/28/2018 SAMEERA ESCOTO, JAMIE Ot V72.84 EXAM PRE-OPERATIVE NOS 02/28/2018 NESS ESCOTO, SOSA Shelby Ot 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 PATELLAE 02/28/2018 NESS ESCOTO, SOSA Shelby Ot V72.84 EXAM PRE-OPERATIVE NOS 02/28/2018 NESS ESCOTO, SOSA Shelby Ot V74.8 SCREEN-BACTERIAL DIS NEC 02/28/2018 NESS ECSOTO, SOSA Shelby Ot 727.61 ROTATOR CUFF RUPTURE 02/28/2018 KAREN ESCOTO, RYAN Moeller Ot 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 02/28/2018 KAREN ESCOTO, RYAN Moeller Ot 788.30 UNSPECIFIED URINARY INCONTINENCE 02/28/2018 RYAN JONES MD Ot V72.84 EXAM PRE-OPERATIVE NOS 02/28/2018 KAREN ESCOTO, RYAN Moeller Ot V74.8 SCREEN-BACTERIAL DIS NEC 02/28/2018 MAXIMUSDER , MORAIMA Moeller Ot 719.46 JOINT PAIN-L/LEG 02/28/2018 MORAIMA NOEL DO Ot 724.2 LUMBAGO 02/28/2018 MORAIMA NOEL DO Ot 959.7 LOWER LEG INJURY NOS 02/28/2018 MORAIMA NOEL DO Ot E000.8 OTHER EXTERNAL CAUSE STATUS 02/28/2018 MAXIMUSDER MORAIMA HDEZ Ot E849.0 ACCIDENT IN HOME 02/28/2018 MORAIMA NOEL DO Ot E888.9 FALL NOS 02/28/2018 MAXIMUSDER MORAIMA HDEZ Ot 789.01 ABDOMINAL PAIN, RIGHT UPPER QUADRANT 02/28/2018 MORAIMA NOEL DO Ot 575.8 DIS OF GALLBLADDER NEC 02/28/2018 RUFINA ESCOTO, NARAYAN Marr Ot 575.8 DIS OF GALLBLADDER NEC 02/28/2018 RUFINA ESCOTO, NARAYAN Marr Ot V72.63 PRE-PROCEDURAL LABORATORY EXAMINATION 02/28/2018 RUFINA ESCOTO, NARAYAN Marr Ot V72.81 [id number] CARDIOVASCULAR 02/28/2018 RUFINA ESCOTO, NARAYAN Marr Ot V74.8 SCREEN-BACTERIAL DIS NEC 02/28/2018 NESS ESCOTO, SOSA Shelby Ot 715.31 LOC OSTEOARTH NOS-SHLDER 02/28/2018 SOSA GUSMAN MD Ot 727.61 ROTATOR CUFF RUPTURE 02/28/2018 SOSA [...] 02/28/2018 MEDARDO DUFFY MD Ot Z79.899 OTHER ASSISTED (CURRENT) DRUG THERAPY 02/28/2018 MEDARDO DUFFY MD Ot Z12.31 ENCNTR SCREEN MAMMOGRAM FOR MALIGNANT NE 02/28/2018 PAMELA ESCOTO, JEN Zhong Ot M25.811 OTHER SPECIFIED JOINT DISORDERS, RIGHT S 02/28/2018 JOSEE ESCOTO FAC, ALI FACP CCDS Ot E78.4 OTHER HYPERLIPIDEMIA 02/28/2018 JOSEE ESCOTO FAC, ALI FACP CCDS Ot I10 ESSENTIAL (PRIMARY) HYPERTENSION 02/28/2018 JOSEE ESCOTO FAC, ALI FACP CCDS Ot J43.8 OTHER EMPHYSEMA 02/28/2018 JOSEE ESCOTO FAC, ALI FACP CCDS Ot R06.02 SHORTNESS OF BREATH 02/28/2018 JOSEE ESCOTO FAC, ALI FACP CCDS Ot Z72.0 TOBACCO USE 02/28/2018 SOSA RESENDIZ MD Ot 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 02/28/2018 SOSA RESENDIZ MD Ot T65.222D TOXIC EFFECT OF TOBACCO CIGARETTES, SELF 02/28/2018 SOSA RESENDIZ MD Ot 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 02/28/2018 SOSA RESENDIZ MD Ot T65.222D TOXIC EFFECT OF TOBACCO CIGARETTES, SELF 02/28/2018 COURTNEY HONG LIABILITY CLAIMS ADJUSTER Ot I70.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 03/05/2018 RASHEED RAHMAN LIABILITY CLAIMS ADJUSTER Ot V76.12 OTH SCREEN MAMMO-MALIGN NEOPLASM OF SAMANTHA 03/05/2018 RASHEED RAHMAN Ot V76.12 OTH SCREEN MAMMO-MALIGN NEOPLASM OF SAMANTHA 03/05/2018 JAMIE LOVE MD Ot V72.84 EXAM PRE-OPERATIVE NOS 03/05/2018 SOSA GUSMAN MD Ot 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 PATELLAE 03/05/2018 SOSA GUSMAN MD Ot V72.84 EXAM PRE-OPERATIVE NOS 03/05/2018 SOSA GUSMAN MD Ot V74.8 SCREEN-BACTERIAL DIS NEC 03/05/2018 SOSA GUSMAN MD Ot 727.61 ROTATOR CUFF RUPTURE 03/05/2018 RYAN JONES MD Ot 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 03/05/2018 RYAN JONES MD Ot 788.30 UNSPECIFIED URINARY INCONTINENCE 03/05/2018 YUMIKO JONES MDAS A Ot V72.84 EXAM PRE-OPERATIVE NOS 03/05/2018 KAREN ESCOTO, RYAN Moeller Ot V74.8 SCREEN-BACTERIAL DIS NEC 03/05/2018 BERT HDEZ, MORAIMA Moeller Ot 719.46 JOINT PAIN-L/LEG 03/05/2018 BERT HDEZ, MORAIMA Moeller Ot 724.2 LUMBAGO 03/05/2018 BERT HDEZ, MORAIMA Moeller Ot 959.7 LOWER LEG INJURY NOS 03/05/2018 BERT HDEZ, MORAIMA Moeller Ot E000.8 OTHER EXTERNAL CAUSE STATUS 03/05/2018 BERT HDEZ, MORAIMA Moeller Ot E849.0 ACCIDENT IN HOME 03/05/2018 BERT HDEZ, MORAIMA Moeller Ot E888.9 FALL NOS 03/05/2018 BERT HDEZ, MORAIMA Moeller Ot 789.01 ABDOMINAL PAIN, RIGHT UPPER QUADRANT 03/05/2018 BERT HDEZ, MORAIMA Moeller Ot 575.8 DIS OF GALLBLADDER NEC 03/05/2018 RUFINA ESCOTO, NARAYAN Marr Ot 575.8 DIS OF GALLBLADDER NEC 03/05/2018 RUFINA ESCOTO, NARAYAN Marr Ot V72.63 PRE-PROCEDURAL LABORATORY EXAMINATION 03/05/2018 RUFINA ESCOTO, NARAYAN Marr Ot V72.81 [id number] CARDIOVASCULAR 03/05/2018 RUFINA ESCOTO, NARAYAN Marr Ot V74.8 SCREEN-BACTERIAL DIS NEC 03/05/2018 NESS ESCOTO, SOSA Shelby Ot 715.31 LOC OSTEOARTH NOS-SHLDER 03/05/2018 NESS ESCOTO, SOSA Shelby Ot 727.61 ROTATOR CUFF RUPTURE 03/05/2018 NESS ESCOTO, SOSA Shelby Ot 840.7 (SLAP) SUPERIOR GLENOID LABRUM LESIONS 03/05/2018 SOSA GUSMAN MD Ot V72.83 EXAM PRE-OPERATIVE NEC 03/05/2018 Ot G56.02 CARPAL TUNNEL SYNDROME, LEFT UPPER LIMB 03/05/2018 Ot Z01.818 ENCOUNTER FOR OTHER PREPROCEDURAL EXAMIN 03/05/2018 Ot Z11.2 ENCOUNTER FOR SCREENING FOR OTHER BACTER 03/05/2018 RASHEED RAHMAN Ot Z12.31 ENCNTR SCREEN MAMMOGRAM FOR MALIGNANT NE 03/05/2018 MORAIMA NOEL DO Ot Z13.89 ENCOUNTER FOR SCREENING FOR OTHER DISORD 03/05/2018 SOSA GUSMAN MD Ot G56.01 CARPAL TUNNEL SYNDROME, RIGHT UPPER LIMB 03/05/2018 SOSA GUSMAN MD Ot Z01.818 ENCOUNTER FOR OTHER PREPROCEDURAL EXAMIN 03/05/2018 MORAIMA NOEL DO Ot J40 BRONCHITIS, NOT SPECIFIED ACUTE OR CH 03/05/2018 MORAIMA NOEL DO Ot J44.9 CHRONIC OBSTRUCTIVE PULMONARY DISEASE, U 03/05/2018 MORAIMA NOEL DO Ot N39.0 URINARY TRACT INFECTION, SITE NOT SPECIF 03/05/2018 PRIMO DINOALE FIELDS Ot R22.31 LOCALIZED SWELLING, MASS AND LUMP, RIGHT 03/05/2018 RASHEED RAHMAN Ot Z12.31 ENCNTR SCREEN MAMMOGRAM FOR MALIGNANT NE 03/05/2018 SOSA GUSMAN MD Ot M75.121 COMPLETE ROTATR-CUFF TEAR/RUPTR OF R JOSSY 03/05/2018 MEDARDO DUFFY MD Ot Z51.81 ENCOUNTER FOR THERAPEUTIC DRUG LEVEL MON 03/05/2018 MEDARDO DUFFY MD Ot Z79.899 OTHER ASSISTED (CURRENT) DRUG THERAPY 03/05/2018 MEDARDO DUFFY MD Ot Z12.31 ENCNTR SCREEN MAMMOGRAM FOR MALIGNANT NE 03/05/2018 PAMELA ESCOTO, JEN Zhong Ot M25.811 OTHER SPECIFIED JOINT DISORDERS, RIGHT S 03/05/2018 JOSEE ESCOTO FAC, ALI FACP CCDS Ot E78.4 OTHER HYPERLIPIDEMIA 03/05/2018 JOSEE ESCOTO FACC, ALI FACP CCDS Ot I10 ESSENTIAL (PRIMARY) HYPERTENSION 03/05/2018 JOSEE ESCOTO FACC, ALI FACP CCDS Ot J43.8 OTHER EMPHYSEMA 03/05/2018 JOSEE ESCOTO FACC, ALI FACP CCDS Ot R06.02 SHORTNESS OF BREATH 03/05/2018 JOSEE ESCOTO FACC, ALI FACP CCDS Ot Z72.0 TOBACCO USE 03/05/2018 SOSA RESENDIZ MD, Ot 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 03/05/2018 SOSA RESENDIZ MD Ot T65.222D TOXIC EFFECT OF TOBACCO CIGARETTES, SELF 03/05/2018 SOSA RESENDIZ MD, Ot 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 03/05/2018 SOSA RESENDIZ MD Ot T65.222D TOXIC EFFECT OF TOBACCO CIGARETTES, SELF 03/05/2018 COURTNEY HONG LIABILITY CLAIMS ADJUSTER Ot I70.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 03/05/2018 COURTNEY HONG LIABILITY CLAIMS ADJUSTER Ot I70.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 03/17/2018 JUANA [...] ESCOTO FACC, ALI FACP CCDS Ot Z79.82 PROPELLER ENGINEER (CURRENT) USE OF ASPIRIN 03/26/2018 JOSEE ESCOTO FACC, ALI FACP CCDS Ot Z79.899 OTHER PROPELLER ENGINEER (CURRENT) DRUG THERAPY 03/26/2018 JOSEE ESCOTO FACC, [...] ESCOTO FACC, ALI FACP CCDS Ot Z79.82 ASSISTED (CURRENT) USE OF ASPIRIN 03/29/2018 JOSEE ESCOTO FACC, ALI FACP CCDS Ot Z79.899 OTHER ASSISTED (CURRENT) DRUG THERAPY 03/29/2018 JOSEE ESCOTO FACC, ALI FACP CCDS Ot Z82.49 FAMILY HX OF ISCHEM HEART DIS AND OTH DI 04/02/2018 GELY, COURTNEY L LIABILITY CLAIMS ADJUSTER Ot E78.4 OTHER HYPERLIPIDEMIA 04/02/2018 BAIMA, COURTNEY L LIABILITY CLAIMS ADJUSTER Ot F17.200 NICOTINE DEPENDENCE, UNSPECIFIED, UNCOMP 04/02/2018 BAIMA, COURTNEY L LIABILITY CLAIMS ADJUSTER Ot I10 ESSENTIAL (PRIMARY) HYPERTENSION 04/02/2018 BAIMA, COURTNEY L LIABILITY CLAIMS ADJUSTER Ot I70.213 ATHSCL [place] ARTERIES OF [facility] 04/05/2018 BAIMA, COURTNEY L LIABILITY CLAIMS ADJUSTER Ot E78.2 MIXED HYPERLIPIDEMIA 04/05/2018 BAIMA, COURTNEY L LIABILITY CLAIMS ADJUSTER Ot I10 ESSENTIAL (PRIMARY) HYPERTENSION 04/05/2018 BAIMA, COURTNEY L LIABILITY CLAIMS ADJUSTER Ot I65.23 OCCLUSION AND STENOSIS OF BILATERAL [place] 04/05/2018 BAIMA, COURTNEY L LIABILITY CLAIMS ADJUSTER Ot I70.213 ATHSCL [place] ARTERIES OF 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 04/18/2018 BAIMA, COURTNEY L LIABILITY CLAIMS ADJUSTER Ot E78.2 MIXED HYPERLIPIDEMIA 04/18/2018 BAIMA, COURTNEY L LIABILITY CLAIMS ADJUSTER Ot I10 ESSENTIAL (PRIMARY) HYPERTENSION 04/18/2018 BAIMA, COURTNEY L LIABILITY CLAIMS ADJUSTER Ot I65.23 OCCLUSION AND STENOSIS OF BILATERAL [place] 04/18/2018 BAIMA, COURTNEY L LIABILITY CLAIMS ADJUSTER Ot I70.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 04/18/2018 BAIMA, COURTNEY L LIABILITY CLAIMS ADJUSTER Ot R06.00 DYSPNEA, UNSPECIFIED 04/18/2018 BAIMA, COURTNEY L LIABILITY CLAIMS ADJUSTER Ot R60.0 LOCALIZED EDEMA 04/19/2018 RASHEED RAHMAN LIABILITY CLAIMS ADJUSTER Ot V76.12 OTH SCREEN MAMMO-MALIGN NEOPLASM OF SAMANTHA 04/19/2018 RASHEED RAHMAN LIABILITY CLAIMS ADJUSTER Ot V76.12 OTH SCREEN MAMMO-MALIGN NEOPLASM OF SAMANTHA 04/19/2018 SAMEERA ESCOTO, JAMIE Ot V72.84 EXAM PRE-OPERATIVE NOS 04/19/2018 NESS ESCOTO, SOSA Shelby Ot 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 PATELLAE 04/19/2018 SOSA GUSMAN MD Ot V72.84 EXAM PRE-OPERATIVE NOS 04/19/2018 SOSA GUSMAN MD Ot V74.8 SCREEN-BACTERIAL DIS NEC 04/19/2018 SOSA GUSMAN MD Ot 727.61 ROTATOR CUFF RUPTURE 04/19/2018 KAREN ESCOTO, RYAN Moeller Ot 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 04/19/2018 RYAN JONES MD Ot 788.30 UNSPECIFIED URINARY INCONTINENCE 04/19/2018 RYAN JONES MD Ot V72.84 EXAM PRE-OPERATIVE NOS 04/19/2018 KAREN ESCOTO, RYAN Moeller Ot V74.8 SCREEN-BACTERIAL DIS NEC 04/19/2018 MORAIMA [...] 789.01 ABDOMINAL PAIN, RIGHT UPPER QUADRANT 04/19/2018 MORAIMA NOEL DO Ot 575.8 DIS OF GALLBLADDER NEC 04/19/2018 RUFINA ESCOTO, NARAYAN Marr Ot 575.8 DIS OF GALLBLADDER NEC 04/19/2018 RUFINA ESCOTO, NARAYAN Marr Ot V72.63 PRE-PROCEDURAL LABORATORY EXAMINATION 04/19/2018 RUFINA ESCOTO, NARAYAN Marr Ot V72.81 [id number] CARDIOVASCULAR 04/19/2018 RUFINA ESCOTO, NARAYAN Marr Ot V74.8 SCREEN-BACTERIAL DIS NEC 04/19/2018 NESS ESCOTO, SOSA Shelby Ot 715.31 LOC OSTEOARTH NOS-SHLDER 04/19/2018 NESS ESCOTO, SOSA Shelby Ot 727.61 ROTATOR CUFF RUPTURE 04/19/2018 SOSA GUSMAN MD Ot 840.7 (SLAP) SUPERIOR GLENOID LABRUM LESIONS 04/19/2018 SOSA GUSMAN MD Ot V72.83 EXAM PRE-OPERATIVE NEC 04/19/2018 Ot G56.02 CARPAL TUNNEL SYNDROME, LEFT UPPER LIMB 04/19/2018 Ot Z01.818 ENCOUNTER FOR OTHER PREPROCEDURAL EXAMIN 04/19/2018 Ot Z11.2 ENCOUNTER FOR SCREENING FOR OTHER BACTER 04/19/2018 RASHEED RAHMAN Ot Z12.31 ENCNTR SCREEN MAMMOGRAM FOR MALIGNANT NE 04/19/2018 MORAIMA NOEL DO Ot Z13.89 ENCOUNTER FOR SCREENING FOR OTHER DISORD 04/19/2018 NESS ESCOTO, SOSA Shelby Ot G56.01 CARPAL TUNNEL SYNDROME, RIGHT UPPER LIMB 04/19/2018 SOSA GUSMAN MD Ot Z01.818 ENCOUNTER FOR OTHER PREPROCEDURAL EXAMIN 04/19/2018 MORAIMA NOEL DO Ot J40 BRONCHITIS, NOT SPECIFIED ACUTE OR CH 04/19/2018 MORAIMA NOEL DO Ot J44.9 CHRONIC OBSTRUCTIVE PULMONARY DISEASE, U 04/19/2018 MORAIMA NOEL DO Ot N39.0 URINARY TRACT INFECTION, SITE NOT SPECIF 04/19/2018 TILLMAN DINO Radu LIABILITY CLAIMS ADJUSTER Ot R22.31 LOCALIZED SWELLING, MASS AND LUMP, RIGHT 04/19/2018 RASHEED RAHMAN LIABILITY CLAIMS ADJUSTER Ot Z12.31 ENCNTR SCREEN MAMMOGRAM FOR MALIGNANT NE 04/19/2018 NESS ESCOTO, SOSA Shelby Ot M75.121 COMPLETE ROTATR-CUFF TEAR/RUPTR OF R JOSSY 04/19/2018 CLIVE ESCOTO, MEDARDO Chowdhury Ot Z51.81 ENCOUNTER FOR THERAPEUTIC DRUG LEVEL MON 04/19/2018 MEDARDO DUFFY MD Ot Z79.899 OTHER PROPELLER ENGINEER (CURRENT) DRUG THERAPY 04/19/2018 MEDARDO DUFFY MD [...] TOXIC EFFECT OF TOBACCO CIGARETTES, SELF 04/19/2018 COURTENY HONG LIABILITY CLAIMS ADJUSTER Ot E78.4 OTHER HYPERLIPIDEMIA 04/19/2018 BAIMA, COURTNEY L LIABILITY CLAIMS ADJUSTER Ot F17.200 NICOTINE DEPENDENCE, UNSPECIFIED, UNCOMP 04/19/2018 BAIMA, COURTNEY L LIABILITY CLAIMS ADJUSTER Ot I10 ESSENTIAL (PRIMARY) HYPERTENSION 04/19/2018 BAIMA, COURTNEY L LIABILITY CLAIMS ADJUSTER Ot I70.213 ATHSCL [place] [facility] 04/19/2018 BAIMA, COURTNEY L LIABILITY CLAIMS ADJUSTER Ot E78.2 MIXED HYPERLIPIDEMIA 04/19/2018 BAIMA, COURTNEY L LIABILITY CLAIMS ADJUSTER Ot I10 ESSENTIAL (PRIMARY) HYPERTENSION 04/19/2018 BAIMA, COURTNEY L LIABILITY CLAIMS ADJUSTER Ot I65.23 OCCLUSION AND STENOSIS OF BILATERAL [place] 04/19/2018 BAIMA, COURTNEY L LIABILITY CLAIMS ADJUSTER Ot I70.213 ATHSCL [place] [facility] 04/19/2018 BAIMA, COURTNEY L LIABILITY CLAIMS ADJUSTER Ot R06.00 DYSPNEA, UNSPECIFIED 04/19/2018 BAIMA, COURTNEY L LIABILITY CLAIMS ADJUSTER Ot R60.0 LOCALIZED EDEMA 04/23/2018 BAIMA, COURTNEY L LIABILITY CLAIMS ADJUSTER Ot E78.2 MIXED HYPERLIPIDEMIA 04/23/2018 BAIMA, COURTNEY L LIABILITY CLAIMS ADJUSTER Ot I10 ESSENTIAL (PRIMARY) HYPERTENSION 04/23/2018 BAIMA, COURTNEY L LIABILITY CLAIMS ADJUSTER Ot I65.23 OCCLUSION AND STENOSIS OF [place]ILATERAL [place] 04/23/2018 BAIMA, COURTNEY L LIABILITY CLAIMS ADJUSTER Ot I70.213 ATHSCL [place] ARTERIES OF [facility] 04/23/2018 BAIMA, COURTNEY L LIABILITY CLAIMS ADJUSTER Ot R06.09 OTHER FORMS OF DYSPNEA 04/23/2018 BAIMA, COURTNEY L LIABILITY CLAIMS ADJUSTER Ot R60.0 LOCALIZED EDEMA 05/01/2018 BAIMA, COURTNEY L LIABILITY CLAIMS ADJUSTER Ot E78.2 MIXED HYPERLIPIDEMIA 05/01/2018 BAIMA, COURTNEY L LIABILITY CLAIMS ADJUSTER Ot I10 ESSENTIAL (PRIMARY) HYPERTENSION 05/01/2018 BAIMA, COURTNEY L LIABILITY CLAIMS ADJUSTER Ot I65.23 OCCLUSION AND STENOSIS OF BILATERAL [place] 05/01/2018 BAIMA, COURTNEY L LIABILITY CLAIMS ADJUSTER Ot I70.213 ATHSCL [place] ARTERIES OF [facility] 05/01/2018 BAIMA, COURTNEY L LIABILITY CLAIMS ADJUSTER Ot R06.09 OTHER FORMS OF DYSPNEA 05/01/2018 BAIMA, COURTNEY L LIABILITY CLAIMS ADJUSTER Ot R60.0 LOCALIZED EDEMA 05/19/2018 LIBERTY SANDOVAL APRN Ot E78.00 PURE HYPERCHOLESTEROLEMIA, UNSPECIFIED 05/19/2018 LIBERTY SANDOVAL APRN Ot F41.9 ANXIETY DISORDER, UNSPECIFIED 05/19/2018 LIBERTY SANDOVAL APRN Ot G47.30 SLEEP APNEA, UNSPECIFIED 05/19/2018 LIBERTY SANDOVAL APRN Ot I10 ESSENTIAL (PRIMARY) HYPERTENSION 05/19/2018 LIBERTY SANDOVAL APRN Ot J44.9 CHRONIC OBSTRUCTIVE PULMONARY DISEASE, U 05/19/2018 LIBERTY SANDOVAL APRN Ot K21.9 GASTRO-ESOPHAGEAL REFLUX DISEASE WITHOUT 05/19/2018 LIBERTY SANDOVAL APRN Ot R11.2 NAUSEA WITH VOMITING, UNSPECIFIED 05/19/2018 LIBERTY SANDOVAL APRN Ot R19.7 DIARRHEA, UNSPECIFIED 05/19/2018 LIBERTY SANDOVAL APRN Ot Z79.52 PROPELLER ENGINEER (CURRENT) USE OF SYSTEMIC STER 05/19/2018 LIBERTY SANDVOAL APRN Ot Z79.82 PROPELLER ENGINEER (CURRENT) USE OF ASPIRIN 05/19/2018 LIBERTY SANDOVAL APRN Ot Z87.448 PERSONAL HISTORY OF OTHER DISEASES OF UR 05/19/2018 LIBERTY SANDOVAL APRN Ot Z88.2 ALLERGY STATUS TO SULFONAMIDES STATUS 05/19/2018 LIBERTY SANDOVAL APRN Ot Z88.5 ALLERGY STATUS TO NARCOTIC AGENT STATUS 05/19/2018 LIBERTY SANDOVAL APRN Ot Z88.8 ALLERGY STATUS TO OTH DRUG/MEDS/BIOL SUB 05/19/2018 LIBERTY SANDOVAL APRN Ot Z90.710 ACQUIRED ABSENCE OF BOTH CERVIX AND UTER 05/19/2018 LIBERTY SANDOVAL APRN Ot Z95.9 PRESENCE OF CARDIAC AND VASCULAR IMPLANT 05/19/2018 LIBERTY SANDOVAL APRN Ot Z96.651 PRESENCE OF RIGHT ARTIFICIAL KNEE JOINT 05/22/2018 LIBERTY SANDOVAL APRN Ot E78.00 PURE HYPERCHOLESTEROLEMIA, UNSPECIFIED 05/22/2018 LIBERTY SANDOVAL APRN Ot F41.9 ANXIETY DISORDER, UNSPECIFIED 05/22/2018 LIBERTY SANDOVAL APRN Ot G47.30 SLEEP APNEA, UNSPECIFIED 05/22/2018 LIBERTY SANDOVAL APRN Ot I10 ESSENTIAL (PRIMARY) HYPERTENSION 05/22/2018 LIBERTY SANDOVAL APRN Ot J44.9 CHRONIC OBSTRUCTIVE PULMONARY DISEASE, U 05/22/2018 LIBERTY SANDOVAL APRN Ot K21.9 GASTRO-ESOPHAGEAL REFLUX DISEASE WITHOUT 05/22/2018 LIBERTY SANDOVAL APRN Ot R11.2 NAUSEA WITH VOMITING, UNSPECIFIED 05/22/2018 LIBERTY SANDOVAL APRN Ot R19.7 DIARRHEA, UNSPECIFIED 05/22/2018 LIBERTY SANDOVAL APRN Ot Z79.52 ASSISTED (CURRENT) USE OF SYSTEMIC STER 05/22/2018 LIBERTY SANDOVAL APRN Ot Z79.82 PROPELLER ENGINEER (CURRENT) USE OF ASPIRIN 05/22/2018 LIBERTY SANDOVAL APRN Ot Z87.448 PERSONAL HISTORY OF OTHER DISEASES OF UR 05/22/2018 LIBERTY SANDOVAL APRN Ot Z88.2 ALLERGY STATUS TO SULFONAMIDES STATUS 05/22/2018 LIBERTY SANDOVAL APRN Ot Z88.5 ALLERGY STATUS TO NARCOTIC AGENT STATUS 05/22/2018 LIBERTY SANDOVAL APRN Ot Z88.8 ALLERGY STATUS TO OTH DRUG/MEDS/BIOL SUB 05/22/2018 LIBERTY SANDOVAL APRN Ot Z90.710 ACQUIRED ABSENCE OF BOTH CERVIX AND UTER 05/22/2018 LIBERTY SANDOVAL APRN Ot Z95.9 PRESENCE OF CARDIAC AND VASCULAR IMPLANT 05/22/2018 LIBERTY SANDOVAL APRN Ot Z96.651 PRESENCE OF RIGHT ARTIFICIAL KNEE JOINT 05/29/2018 SAKINA PARRA [place]OCK LATHER Ot Z12.31 ENCNTR SCREEN MAMMOGRAM FOR MALIGNANT NE 06/03/2018 SAKINA [place] LATHER Ot Z12.31 ENCNTR SCREEN MAMMOGRAM FOR MALIGNANT NE 06/07/2018 SAKINA [place] LATHER Ot Z12.31 ENCNTR SCREEN MAMMOGRAM FOR MALIGNANT NE 06/10/2018 JEN SANTIAGO MD Ot M25.512 PAIN IN LEFT SHOULDER 06/10/2018 JEN SANTIAGO MD Ot Z47.89 ENCOUNTER FOR OTHER ORTHOPEDIC AFTERCARE 06/12/2018 JEN SANTIAGO MD, Ot M25.512 PAIN IN LEFT SHOULDER 06/12/2018 JEN SANTIAGO MD Ot Z47.89 ENCOUNTER FOR OTHER ORTHOPEDIC AFTERCARE 07/02/2018 JEN SANTIAGO MD, Ot M25.512 PAIN IN LEFT SHOULDER 07/02/2018 JEN SANTIAGO MD Ot Z47.89 ENCOUNTER FOR OTHER ORTHOPEDIC AFTERCARE 07/03/2018 JEN SANTIAGO MD, Ot M25.512 PAIN IN LEFT SHOULDER 07/03/2018 PMAELA ESCOTO, JEN Zhong Ot Z47.89 ENCOUNTER FOR OTHER ORTHOPEDIC AFTERCARE 07/27/2018 LEANNA VILLA [place]OCK LATHER Ot G47.9 SLEEP DISORDER, UNSPECIFIED 07/27/2018 DAISY, LEANNA E [place] LATHER Ot G47.9 SLEEP DISORDER, UNSPECIFIED 07/28/2018 DAISY, LEANNA E [place]OCK LATHER Ot G47.9 SLEEP DISORDER, UNSPECIFIED 07/28/2018 DAISY, LEANNA E [place]OCK LATHER Ot G47.9 SLEEP DISORDER, UNSPECIFIED 07/28/2018 DAISY, LEANNA E [place]OCK LATHER Ot G47.9 SLEEP DISORDER, UNSPECIFIED 07/28/2018 DAISY, LEANNA E [place]OCK LATHER Ot E66.09 OTHER OBESITY DUE TO EXCESS CALORIES 07/28/2018 DAISY, LEANNA E [place]OCK LATHER Ot G47.10 HYPERSOMNIA, UNSPECIFIED 07/28/2018 YA VILLAINE E ROCK LATHER Ot G47.50 PARASOMNIA, UNSPECIFIED 07/28/2018 YA VILLAINE E ROCK LATHER Ot J43.8 OTHER EMPHYSEMA 07/28/2018 DAISY, LEANNA E [place]OCK LATHER Ot R06.02 SHORTNESS OF BREATH 07/28/2018 DAISY, LEANNA E [place] LATHER Ot Z72.0 TOBACCO USE 07/29/2018 DAISY, LEANNA E [place]OCK LATHER Ot E66.09 OTHER OBESITY DUE TO EXCESS CALORIES 07/29/2018 DAISY, LEANNA E ROCK LATHER Ot G47.10 HYPERSOMNIA, UNSPECIFIED 07/29/2018 DAISY, LEANNA E [place]OCK LATHER Ot G47.50 PARASOMNIA, UNSPECIFIED 07/29/2018 YA VILLAINE E ROCK LATHER Ot J43.8 OTHER EMPHYSEMA 07/29/2018 DAISY, LEANNA E ROCK LATHER Ot R06.02 SHORTNESS OF BREATH 07/29/2018 DAISY, LEANNA E [place]OCK LATHER Ot Z72.0 TOBACCO USE 07/29/2018 DAISY, LEANNA E ROCK LATHER Ot E66.09 OTHER OBESITY DUE TO EXCESS CALORIES 07/29/2018 DIASY LEANNA E [place]OCK LATHER Ot G47.10 HYPERSOMNIA, UNSPECIFIED 07/29/2018 DAISY LEANNA E [place]OCK LATHER Ot G47.50 PARASOMNIA, UNSPECIFIED 07/29/2018 DAISY LEANNA E ROCK LATHER Ot J43.8 OTHER EMPHYSEMA 07/29/2018 LEANNA VILLA APRN Ot R06.02 SHORTNESS OF BREATH 07/29/2018 LEANNA VILLA [place] LATHER Ot Z72.0 TOBACCO USE 07/31/2018 Ot E66.9 OBESITY, UNSPECIFIED 07/31/2018 Ot G47.10 HYPERSOMNIA, UNSPECIFIED 07/31/2018 Ot G47.33 OBSTRUCTIVE SLEEP APNEA (ADULT) (PEDIATR 07/31/2018 Ot G47.50 PARASOMNIA, UNSPECIFIED 07/31/2018 Ot J44.9 CHRONIC OBSTRUCTIVE PULMONARY DISEASE, U 07/31/2018 Ot R06.02 SHORTNESS OF BREATH 07/31/2018 Ot Z68.42 BODY MASS INDEX (BMI) 45.0-49.9, ADULT 07/31/2018 Ot Z72.0 TOBACCO USE 08/08/2018 LEANNA VILLA APRN Ot E66.09 OTHER OBESITY DUE TO EXCESS CALORIES 08/08/2018 LEANNA VILLA [place] LATHER Ot G47.10 HYPERSOMNIA, UNSPECIFIED 08/08/2018 LEANNA VILLA ROCK LATHER Ot G47.50 PARASOMNIA, UNSPECIFIED 08/08/2018 LEANNA VILLA ROCK LATHER Ot J43.8 OTHER EMPHYSEMA 08/08/2018 LEANNA VILLA [place]OCK LATHER Ot R06.02 SHORTNESS OF BREATH 08/08/2018 LEANNA VILLA ROCK LATHER Ot Z72.0 TOBACCO USE 08/26/2018 JOSIAHNAKIARASHEED DIAMOND Ot V76.12 OTH SCREEN MAMMO-MALIGN NEOPLASM OF SAMANTHA 08/26/2018 SAMEERA ESCOTO, JAMIE Ot V72.84 EXAM PRE-OPERATIVE NOS 08/26/2018 SOSA GUSMAN MD Ot 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 PATELLAE 08/26/2018 SOSA GUSMAN MD Ot V72.84 EXAM PRE-OPERATIVE NOS 08/26/2018 SOSA GUSMAN MD Ot V74.8 SCREEN-BACTERIAL DIS NEC 08/26/2018 SOSA GUSMAN MD Ot 727.61 ROTATOR CUFF RUPTURE 08/26/2018 RYAN JONES MD Ot 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 08/26/2018 RYAN JONES MD Ot 788.30 UNSPECIFIED URINARY INCONTINENCE 08/26/2018 RYAN JONES MD Ot V72.84 EXAM PRE-OPERATIVE NOS 08/26/2018 KAREN ESCOTO, RYAN Moeller Ot V74.8 SCREEN-BACTERIAL DIS NEC 08/26/2018 BERT HDEZ, MORAIMA Moeller Ot 719.46 JOINT PAIN-L/LEG 08/26/2018 BERT HDEZ, MORAIMA Moeller Ot 724.2 LUMBAGO 08/26/2018 BERT HDEZ, MORAIMA Moeller Ot 959.7 LOWER LEG INJURY NOS 08/26/2018 MORAIMA NOEL DO Ot E000.8 OTHER EXTERNAL CAUSE STATUS 08/26/2018 MORAIMA NOEL DO Ot E849.0 ACCIDENT IN HOME 08/26/2018 BERT HDEZ, MORAIMA Moeller Ot E888.9 FALL NOS 08/26/2018 MORAIMA NOEL DO Ot 789.01 ABDOMINAL PAIN, RIGHT UPPER QUADRANT 08/26/2018 MORAIMA NOEL DO Ot 575.8 DIS OF GALLBLADDER NEC 08/26/2018 RUFINA ESCOTO, NARAYAN Marr Ot 575.8 DIS OF GALLBLADDER NEC 08/26/2018 RUFINA ESCOTO, NARAYAN Marr Ot V72.63 PRE-PROCEDURAL LABORATORY EXAMINATION 08/26/2018 RUFINA ESCOTO, NARAYAN Marr Ot V72.81 [id number] CARDIOVASCULAR 08/26/2018 RUFINA ESCOTO, NARAYAN Marr Ot V74.8 SCREEN-BACTERIAL DIS NEC 08/26/2018 NESS ESCOTO, SOSA Shelby Ot 715.31 LOC OSTEOARTH NOS-SHLDER 08/26/2018 NESS ESCOTO, SOSA Shelby Ot 727.61 ROTATOR CUFF RUPTURE 08/26/2018 NESS ESCOTO, SOSA Shelby Ot 840.7 (SLAP) SUPERIOR GLENOID LABRUM LESIONS 08/26/2018 NESS ESCOTO, SOSA Shelby Ot V72.83 EXAM PRE-OPERATIVE NEC 08/26/2018 Ot G56.02 CARPAL TUNNEL SYNDROME, LEFT UPPER LIMB 08/26/2018 Ot Z01.818 ENCOUNTER FOR OTHER PREPROCEDURAL EXAMIN 08/26/2018 Ot Z11.2 ENCOUNTER FOR SCREENING FOR OTHER BACTER 08/26/2018 RASHEED RAHMAN Ot Z12.31 ENCNTR SCREEN MAMMOGRAM FOR MALIGNANT NE 08/26/2018 MORAIMA NOEL DO Sunni Ot Z13.89 ENCOUNTER FOR SCREENING FOR OTHER DISORD 08/26/2018 NESS ESCOTO, SOSA P Ot G56.01 CARPAL TUNNEL SYNDROME, RIGHT UPPER LIMB 08/26/2018 SOSA GUSMAN MD Ot Z01.818 ENCOUNTER FOR OTHER PREPROCEDURAL EXAMIN 08/26/2018 MORAIMA NOEL DO Ot J40 BRONCHITIS, NOT SPECIFIED ACUTE OR CH 08/26/2018 MORAIMA NOEL DO Ot J44.9 CHRONIC OBSTRUCTIVE PULMONARY DISEASE, U 08/26/2018 MORAIMA NOEL DO Ot N39.0 URINARY TRACT INFECTION, SITE NOT SPECIF 08/26/2018 DINO TILLMAN LIABILITY CLAIMS ADJUSTER Ot R22.31 LOCALIZED SWELLING, MASS AND LUMP, RIGHT 08/26/2018 RASHEED RAHMAN LIABILITY CLAIMS ADJUSTER Ot Z12.31 ENCNTR SCREEN MAMMOGRAM FOR MALIGNANT NE 08/26/2018 SOSA GUSMAN MD Ot M75.121 COMPLETE ROTATR-CUFF TEAR/RUPTR OF R JOSSY 08/26/2018 CLIVE ESCOTO, MEDARDO Chowdhury Ot Z51.81 ENCOUNTER FOR THERAPEUTIC DRUG LEVEL MON 08/26/2018 MEDARDO DUFFY MD Ot Z79.899 OTHER PROPELLER ENGINEER (CURRENT) DRUG THERAPY 08/26/2018 MEDARDO DUFFY MD Ot Z12.31 ENCNTR SCREEN MAMMOGRAM FOR MALIGNANT NE 08/26/2018 PAMELA ESCOTO, JEN Zhong Ot M25.811 OTHER SPECIFIED JOINT DISORDERS, RIGHT S 08/26/2018 JOSEE ESCOTO FACC, ALI FACP CCDS Ot E78.4 OTHER HYPERLIPIDEMIA 08/26/2018 JOSEE ESCOTO FACC, ALI FACP CCDS Ot I10 ESSENTIAL (PRIMARY) HYPERTENSION 08/26/2018 JOSEE ESCOTO FACC, ALI FACP CCDS Ot J43.8 OTHER EMPHYSEMA 08/26/2018 JOSEE ESCOTO FACC, ALI FACP CCDS Ot R06.02 SHORTNESS OF BREATH 08/26/2018 JOSEE ESCOTO FACC, ALI FACP CCDS Ot Z72.0 TOBACCO USE 08/26/2018 SOSA RESENDIZ MD Ot 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 08/26/2018 SOSA RESENDIZ MD, Ot T65.222D TOXIC EFFECT OF TOBACCO CIGARETTES, SELF 08/26/2018 SOSA RESENDIZ MD, Ot 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 08/26/2018 SOSA RESENDIZ MD, Ot T65.222D TOXIC EFFECT OF TOBACCO CIGARETTES, SELF 08/26/2018 BAICOURTNEY MOSS L LIABILITY CLAIMS ADJUSTER Ot E78.4 OTHER HYPERLIPIDEMIA 08/26/2018 BAIMA, COURTNEY L LIABILITY CLAIMS ADJUSTER Ot F17.200 NICOTINE DEPENDENCE, UNSPECIFIED, UNCOMP 08/26/2018 BAIMA, COURTNEY L LIABILITY CLAIMS ADJUSTER Ot I10 ESSENTIAL (PRIMARY) HYPERTENSION 08/26/2018 BAIMA, COURTNEY L LIABILITY CLAIMS ADJUSTER Ot I70.213 ATHSCL [place] [facility] 08/26/2018 BAIMA, COURTNEY L LIABILITY CLAIMS ADJUSTER Ot E78.2 MIXED HYPERLIPIDEMIA 08/26/2018 BAIMA, COURTNEY L LIABILITY CLAIMS ADJUSTER Ot I10 ESSENTIAL (PRIMARY) HYPERTENSION 08/26/2018 BAIMA, COURTNEY L LIABILITY CLAIMS ADJUSTER Ot I65.23 OCCLUSION AND STENOSIS OF BILATERAL [place] 08/26/2018 BAIMA, COURTNEY L LIABILITY CLAIMS ADJUSTER Ot I70.213 ATHSCL [place] [facility] 08/26/2018 BAIMA, COURTNEY L LIABILITY CLAIMS ADJUSTER Ot R06.00 DYSPNEA, UNSPECIFIED 08/26/2018 BAIMA, COURTNEY L LIABILITY CLAIMS ADJUSTER Ot R60.0 LOCALIZED EDEMA 08/26/2018 BAIMA, COURTNEY L LIABILITY CLAIMS ADJUSTER Ot E78.2 MIXED HYPERLIPIDEMIA 08/26/2018 BAIMA, COURTNEY L LIABILITY CLAIMS ADJUSTER Ot I10 ESSENTIAL (PRIMARY) HYPERTENSION 08/26/2018 BAIMA, COURTNEY L LIABILITY CLAIMS ADJUSTER Ot I65.23 OCCLUSION AND STENOSIS OF BILATERAL [place] 08/26/2018 BAIMA, COURTNEY L LIABILITY CLAIMS ADJUSTER Ot I70.213 ATHSCL [place] [facility] 08/26/2018 BAIMA, COURTNEY L LIABILITY CLAIMS ADJUSTER Ot R06.09 OTHER FORMS OF DYSPNEA 08/26/2018 BAIMA, COURTNEY L LIABILITY CLAIMS ADJUSTER Ot R60.0 LOCALIZED EDEMA 08/26/2018 SAKINA PARRA APRN Ot Z12.31 ENCNTR SCREEN MAMMOGRAM FOR MALIGNANT NE 08/26/2018 LEANNA VILLA APRN Ot E66.09 OTHER OBESITY DUE TO EXCESS CALORIES 08/26/2018 LEANNA VILLA APRN Ot G47.50 PARASOMNIA, UNSPECIFIED 08/26/2018 LEANNA VILLA APRN Ot J44.9 CHRONIC OBSTRUCTIVE PULMONARY DISEASE, U 08/26/2018 LEANNA VILLA APRN Ot R29.818 OTHER SYMPTOMS AND SIGNS INVOLVING THE N 08/26/2018 DAISY LEANNA Sheridan ROCK LATHER Ot R91.8 OTHER NONSPECIFIC ABNORMAL FINDING OF LISA 08/26/2018 LEANNA VILLA ROCK LATHER Ot Z72.0 TOBACCO USE 08/26/2018 YA VILLAINE Arvin ROCK LATHER Ot E66.09 OTHER OBESITY DUE TO EXCESS CALORIES 08/26/2018 YA VILLAINE E ROCK LATHER Ot G47.10 HYPERSOMNIA, UNSPECIFIED 08/26/2018 LEANNA VILLA ROCK LATHER Ot G47.50 PARASOMNIA, UNSPECIFIED 08/26/2018 YA VILLAINE Arvin ROCK LATHER Ot J43.8 OTHER EMPHYSEMA 08/26/2018 YA VILLAINE Arvin ROCK LATHER Ot R06.02 SHORTNESS OF BREATH 08/26/2018 LEANNA VILLA ROCK LATHER Ot Z72.0 TOBACCO USE 08/26/2018 Ot E66.9 OBESITY, UNSPECIFIED 08/26/2018 Ot G47.10 HYPERSOMNIA, UNSPECIFIED 08/26/2018 Ot G47.33 OBSTRUCTIVE SLEEP APNEA (ADULT) (PEDIATR 08/26/2018 Ot G47.50 PARASOMNIA, UNSPECIFIED 08/26/2018 Ot J44.9 CHRONIC OBSTRUCTIVE PULMONARY DISEASE, U 08/26/2018 Ot R06.02 SHORTNESS OF BREATH 08/26/2018 Ot Z68.42 BODY MASS INDEX (BMI) 45.0-49.9, ADULT 08/26/2018 Ot Z72.0 TOBACCO USE 08/26/2018 LEANNA VILLA ROCK LATHER Ot E66.09 OTHER OBESITY DUE TO EXCESS CALORIES 08/26/2018 LEANNA VILLA ROCK LATHER Ot G47.10 HYPERSOMNIA, UNSPECIFIED 08/26/2018 LEANNA VILLA ROCK LATHER Ot G47.50 PARASOMNIA, UNSPECIFIED 08/26/2018 LEANNA VILLA ROCK LATHER Ot J43.8 OTHER EMPHYSEMA 08/26/2018 YA VILLAINE Arvin ROCK LATHER Ot R06.02 SHORTNESS OF BREATH 08/26/2018 LEANNA VILLA ROCK LATHER Ot Z72.0 TOBACCO USE 08/26/2018 Ot E66.9 OBESITY, UNSPECIFIED 08/26/2018 Ot G47.10 HYPERSOMNIA, UNSPECIFIED 08/26/2018 Ot G47.33 OBSTRUCTIVE SLEEP APNEA (ADULT) (PEDIATR 08/26/2018 Ot G47.50 PARASOMNIA, UNSPECIFIED 08/26/2018 Ot J44.9 CHRONIC OBSTRUCTIVE PULMONARY DISEASE, U 08/26/2018 Ot R06.02 SHORTNESS OF BREATH 08/26/2018 Ot Z68.42 BODY MASS INDEX (BMI) 45.0-49.9, ADULT 08/26/2018 Ot Z72.0 TOBACCO USE 08/30/2018 YA VILLAINE Arvin ROCK LATHER Ot E66.09 OTHER OBESITY DUE TO EXCESS CALORIES 08/30/2018 YA VILLAINE E ROCK LATHER Ot G47.50 PARASOMNIA, UNSPECIFIED 08/30/2018 YA VILLAINE E ROCK LATHER Ot J44.9 CHRONIC OBSTRUCTIVE PULMONARY DISEASE, U 08/30/2018 YA VILLAINE E ROCK LATHER Ot R29.818 OTHER SYMPTOMS AND SIGNS INVOLVING THE N 08/30/2018 YA VILLAINE E ROCK LATHER Ot R91.8 OTHER NONSPECIFIC ABNORMAL FINDING OF LISA 08/30/2018 YA VILLAINE Arvin ROCK LATHER Ot Z72.0 TOBACCO USE 09/16/2018 YA VILLAINE E ROCK LATHER Ot E66.9 OBESITY, UNSPECIFIED 09/16/2018 YA VILLAINE E ROCK LATHER Ot G47.10 HYPERSOMNIA, UNSPECIFIED 09/16/2018 DAISYYA CHAIREZINE E ROCK LATHER Ot G47.33 OBSTRUCTIVE SLEEP APNEA (ADULT) (PEDIATR 09/16/2018 YA VILLAINE E ROCK LATHER Ot G47.50 PARASOMNIA, UNSPECIFIED 09/16/2018 YA VILLAINE E ROCK LATHER Ot J44.9 CHRONIC OBSTRUCTIVE PULMONARY DISEASE, U 09/16/2018 YA VILLAINE E ROCK LATHER Ot R06.02 SHORTNESS OF BREATH 09/16/2018 YA VILLAINE E ROCK LATHER Ot Z68.42 BODY MASS INDEX (BMI) 45.0-49.9, ADULT 09/16/2018 YA VILLAINE E ROCK LATHER Ot Z72.0 TOBACCO USE 09/17/2018 YA VILLAINE E ROCK LATHER Ot E66.9 OBESITY, UNSPECIFIED 09/17/2018 DAISYYA CHAIREZINE E ROCK LATHER Ot G47.10 HYPERSOMNIA, UNSPECIFIED 09/17/2018 DAISY, LEANNA E ROCK LATHER Ot G47.33 OBSTRUCTIVE SLEEP APNEA (ADULT) (PEDIATR 09/17/2018 YA VILLAINE E ROCK LATHER Ot G47.50 PARASOMNIA, UNSPECIFIED 09/17/2018 DAISY, LEANNA E ROCK LATHER Ot J44.9 CHRONIC OBSTRUCTIVE PULMONARY DISEASE, U 09/17/2018 DAISY, LEANNA E ROCK LATHER Ot R06.02 SHORTNESS OF BREATH 09/17/2018 DAISY, LEANNA E ROCK LATHER Ot Z68.42 BODY MASS INDEX (BMI) 45.0-49.9, ADULT 09/17/2018 DAISY, LEANNA E ROCK LATHER Ot Z72.0 TOBACCO USE 09/19/2018 DAISY, LEANNA E ROCK LATHER Ot E66.9 OBESITY, UNSPECIFIED 09/19/2018 DAISY, LEANNA E ROCK LATHER Ot G47.10 HYPERSOMNIA, UNSPECIFIED 09/19/2018 DAISY, LEANNA E ROCK LATHER Ot G47.33 OBSTRUCTIVE SLEEP APNEA (ADULT) (PEDIATR 09/19/2018 DAISY, LEANNA E ROCK LATHER Ot G47.50 PARASOMNIA, UNSPECIFIED 09/19/2018 DAISY, LEANNA E ROCK LATHER Ot J44.9 CHRONIC OBSTRUCTIVE PULMONARY DISEASE, U 09/19/2018 DAISY, LEANNA E ROCK LATHER Ot R06.02 SHORTNESS OF BREATH 09/19/2018 DAISY, LEANNA E ROCK LATHER Ot Z68.42 BODY MASS INDEX (BMI) 45.0-49.9, ADULT 09/19/2018 DAISY, LEANNA E ROCK LATHER Ot Z72.0 TOBACCO USE 09/26/2018 DAISY, LEANNA E ROCK LATHER Ot E66.9 OBESITY, UNSPECIFIED 09/26/2018 DAISY, LEANNA E ROCK LATHER Ot G47.10 HYPERSOMNIA, UNSPECIFIED 09/26/2018 DAISY, LEANNA E ROCK LATHER Ot G47.33 OBSTRUCTIVE SLEEP APNEA (ADULT) (PEDIATR 09/26/2018 DAISY, LEANNA E ROCK LATHER Ot G47.50 PARASOMNIA, UNSPECIFIED 09/26/2018 DAISY, LEANNA E ROCK LATHER Ot J44.9 CHRONIC OBSTRUCTIVE PULMONARY DISEASE, U 09/26/2018 DAISY, LEANNA E ROCK LATHER Ot R06.02 SHORTNESS OF BREATH 09/26/2018 DAISY, LEANNA E ROCK LATHER Ot Z68.42 BODY MASS INDEX (BMI) 45.0-49.9, ADULT 09/26/2018 DAISY, LEANNA E ROCK LATHER Ot Z72.0 TOBACCO USE 10/01/2018 DAISY, LEANNA E ROCK LATHER Ot E66.9 OBESITY, UNSPECIFIED 10/01/2018 DAISY, LEANNA E ROCK LATHER Ot G47.10 HYPERSOMNIA, UNSPECIFIED 10/01/2018 DAISY, LEANNA E ROCK LATHER Ot G47.33 OBSTRUCTIVE SLEEP APNEA (ADULT) (PEDIATR 10/01/2018 DAISY, LEANNA E ROCK LATHER Ot G47.50 PARASOMNIA, UNSPECIFIED 10/01/2018 DAISY, LEANNA E ROCK LATHER Ot J44.9 CHRONIC OBSTRUCTIVE PULMONARY DISEASE, U 10/01/2018 DAISY, LEANNA E ROCK LATHER Ot R06.02 SHORTNESS OF BREATH 10/01/2018 DAISY, LEANNA E ROCK LATHER Ot Z68.42 BODY MASS INDEX (BMI) 45.0-49.9, ADULT 10/01/2018 DAISY, LEANNA E ROCK LATHER Ot Z72.0 TOBACCO USE 10/08/2018 DAISY, LEANNA E ROCK LATHER Ot E66.9 OBESITY, UNSPECIFIED 10/08/2018 DAISY, LEANNA E ROCK LATHER Ot G47.10 HYPERSOMNIA, UNSPECIFIED 10/08/2018 DAISY, LEANNA E ROCK LATHER Ot G47.33 OBSTRUCTIVE SLEEP APNEA (ADULT) (PEDIATR 10/08/2018 DAISY, LEANNA E ROCK LATHER Ot G47.50 PARASOMNIA, UNSPECIFIED 10/08/2018 DAISY, LEANNA E ROCK LATHER Ot J44.9 CHRONIC OBSTRUCTIVE PULMONARY DISEASE, U 10/08/2018 DAISY, LEANNA E ROCK LATHER Ot R06.02 SHORTNESS OF BREATH 10/08/2018 DAISY, LEANNA E ROCK LATHER Ot Z68.42 BODY MASS INDEX (BMI) 45.0-49.9, ADULT 10/08/2018 DAISY, LEANNA E ROCK LATHER Ot Z72.0 TOBACCO USE 10/10/2018 DAISY, LEANNA E ROCK LATHER Ot E66.9 OBESITY, UNSPECIFIED 10/10/2018 DAISY, LEANNA E ROCK LATHER Ot G47.10 HYPERSOMNIA, UNSPECIFIED 10/10/2018 DAISY, LEANNA E ROCK LATHER Ot G47.33 OBSTRUCTIVE SLEEP APNEA (ADULT) (PEDIATR 10/10/2018 DAISY, LEANNA E ROCK LATHER Ot G47.50 PARASOMNIA, UNSPECIFIED 10/10/2018 DAISY, LEANNA E ROCK LATHER Ot J44.9 CHRONIC OBSTRUCTIVE PULMONARY DISEASE, U 10/10/2018 DAISY, LEANNA E ROCK LATHER Ot R06.02 SHORTNESS OF BREATH 10/10/2018 DAISY, LEANNA E ROCK LATHER Ot Z68.42 BODY MASS INDEX (BMI) 45.0-49.9, ADULT 10/10/2018 DAISY, LEANNA E ROCK LATHER Ot Z72.0 TOBACCO USE 10/10/2018 DAISY, LEANNA E ROCK LATHER Ot E66.9 OBESITY, UNSPECIFIED 10/10/2018 DAISY, LEANNA E ROCK LATHER Ot G47.10 HYPERSOMNIA, UNSPECIFIED 10/10/2018 DAISY, LEANNA E ROCK LATHER Ot G47.33 OBSTRUCTIVE SLEEP APNEA (ADULT) (PEDIATR 10/10/2018 DAISY, LEANNA E ROCK LATHER Ot G47.50 PARASOMNIA, UNSPECIFIED 10/10/2018 YA VILLAINE E ROCK LATHER Ot J44.9 CHRONIC OBSTRUCTIVE PULMONARY DISEASE, U 10/10/2018 YA VILLAINE E ROCK LATHER Ot R06.02 SHORTNESS OF BREATH 10/10/2018 YA VILLAINE E ROCK LATHER Ot Z68.42 BODY MASS INDEX (BMI) 45.0-49.9, ADULT 10/10/2018 LEANNA VILLA ROCK LATHER Ot Z72.0 TOBACCO USE 10/22/2018 DAISY, LEANNA E ROCK LATHER Ot E66.09 OTHER OBESITY DUE TO EXCESS CALORIES 10/22/2018 YA VILLAINE E ROCK LATHER Ot G47.10 HYPERSOMNIA, UNSPECIFIED 10/22/2018 DAISY, LEANNA E ROCK LATHER Ot G47.33 OBSTRUCTIVE SLEEP APNEA (ADULT) (PEDIATR 10/22/2018 YA VILLAINE E ROCK LATHER Ot G47.50 PARASOMNIA, UNSPECIFIED 10/22/2018 YA VILLAINE E ROCK LATHER Ot J44.9 CHRONIC OBSTRUCTIVE PULMONARY DISEASE, U 10/22/2018 DAISY, LEANNA E ROCK LATHER Ot R91.1 SOLITARY PULMONARY NODULE 10/22/2018 YA VILLAINE E ROCK LATHER Ot Z72.0 TOBACCO USE 10/28/2018 DAISY, LEANNA E ROCK LATHER Ot E66.09 OTHER OBESITY DUE TO EXCESS CALORIES 10/28/2018 DAISY, LEANNA E ROCK LATHER Ot G47.10 HYPERSOMNIA, UNSPECIFIED 10/28/2018 DAISY, LEANNA E ROCK LATHER Ot G47.33 OBSTRUCTIVE SLEEP APNEA (ADULT) (PEDIATR 10/28/2018 DAISYYA CHAIREZINE E ROCK LATHER Ot G47.50 PARASOMNIA, UNSPECIFIED 10/28/2018 YA VILLAINE E ROCK LATHER Ot J44.9 CHRONIC OBSTRUCTIVE PULMONARY DISEASE, U 10/28/2018 YA VILLAINE E ROCK LATHER Ot R91.1 SOLITARY PULMONARY NODULE 10/28/2018 DAISY, LEANNA E ROCK LATHER Ot Z72.0 TOBACCO USE 10/29/2018 DAISY, LEANNA E ROCK LATHER Ot E66.9 OBESITY, UNSPECIFIED 10/29/2018 DAISY, LEANNA E ROCK LATHER Ot G47.10 HYPERSOMNIA, UNSPECIFIED 10/29/2018 DAISY, LEANNA E ROCK LATHER Ot G47.33 OBSTRUCTIVE SLEEP APNEA (ADULT) (PEDIATR 10/29/2018 YA VILLAINE E ROCK LATHER Ot G47.50 PARASOMNIA, UNSPECIFIED 10/29/2018 YA VILLAINE E ROCK LATHER Ot J44.9 CHRONIC OBSTRUCTIVE PULMONARY DISEASE, U 10/29/2018 DAISY, LEANNA E ROCK LATHER Ot R06.02 SHORTNESS OF BREATH 10/29/2018 YA VILLAINE E ROCK LATHER Ot Z68.42 BODY MASS INDEX (BMI) 45.0-49.9, ADULT 10/29/2018 DAISY, LEANNA E ROCK LATHER Ot Z72.0 TOBACCO USE 10/29/2018 DAISY, LEANNA E ROCK LATHER Ot E66.9 OBESITY, UNSPECIFIED 10/29/2018 DAISY, LEANNA E ROCK LATHER Ot G47.10 HYPERSOMNIA, UNSPECIFIED 10/29/2018 DAISY, LEANNA E ROCK LATHER Ot G47.33 OBSTRUCTIVE SLEEP APNEA (ADULT) (PEDIATR 10/29/2018 YA VILLAINE E ROCK LATHER Ot G47.50 PARASOMNIA, UNSPECIFIED 10/29/2018 DAISY, LEANNA E ROCK LATHER Ot J44.9 CHRONIC OBSTRUCTIVE PULMONARY DISEASE, U 10/29/2018 DAISY, LEANNA E ROCK LATHER Ot R06.02 SHORTNESS OF BREATH 10/29/2018 DAISY, LEANNA E ROCK LATHER Ot Z68.42 BODY MASS INDEX (BMI) 45.0-49.9, ADULT 10/29/2018 DAISY, LEANNA E ROCK LATHER Ot Z72.0 TOBACCO USE 11/06/2018 DAISY, LEANNA E ROCK LATHER Ot E66.9 OBESITY, UNSPECIFIED 11/06/2018 DAISY, LEANNA E ROCK LATHER Ot G47.10 HYPERSOMNIA, UNSPECIFIED 11/06/2018 DAISY, LEANNA E ROCK LATHER Ot G47.33 OBSTRUCTIVE SLEEP APNEA (ADULT) (PEDIATR 11/06/2018 DAISY, LEANNA E ROCK LATHER Ot G47.50 PARASOMNIA, UNSPECIFIED 11/06/2018 DAISY, LEANNA E ROCK LATHER Ot J44.9 CHRONIC OBSTRUCTIVE PULMONARY DISEASE, U 11/06/2018 DAISY, LEANNA E ROCK LATHER Ot R06.02 SHORTNESS OF BREATH 11/06/2018 DAISY, LEANNA E ROCK LATHER Ot Z68.42 BODY MASS INDEX (BMI) 45.0-49.9, ADULT 11/06/2018 DAISY, LEANNA E ROCK LATHER Ot Z72.0 TOBACCO USE 11/07/2018 DAISY, LEANNA E ROCK LATHER Ot E66.9 OBESITY, UNSPECIFIED 11/07/2018 DAISY, LEANNA E ROCK LATHER Ot G47.10 HYPERSOMNIA, UNSPECIFIED 11/07/2018 DAISY, LEANNA E ROCK LATHER Ot G47.33 OBSTRUCTIVE SLEEP APNEA (ADULT) (PEDIATR 11/07/2018 DAISY, LEANNA E ROCK LATHER Ot G47.50 PARASOMNIA, UNSPECIFIED 11/07/2018 DAISY, LEANNA E ROCK LATHER Ot J44.9 CHRONIC OBSTRUCTIVE PULMONARY DISEASE, U 11/07/2018 DAISY, LEANNA E ROCK LATHER Ot R06.02 SHORTNESS OF BREATH 11/07/2018 DAISY, LEANNA E ROCK LATHER Ot Z68.42 BODY MASS INDEX (BMI) 45.0-49.9, ADULT 11/07/2018 DAISY, LEANNA E ROCK LATHER Ot Z72.0 TOBACCO USE 11/15/2018 DAISY, LEANNA E ROCK LATHER Ot E66.9 OBESITY, UNSPECIFIED 11/15/2018 DAISY, LEANNA E ROCK LATHER Ot G47.10 HYPERSOMNIA, UNSPECIFIED 11/15/2018 DAISY, LEANNA E ROCK LATHER Ot G47.33 OBSTRUCTIVE SLEEP APNEA (ADULT) (PEDIATR 11/15/2018 DAISY, LEANNA E ROCK LATHER Ot G47.50 PARASOMNIA, UNSPECIFIED 11/15/2018 DAISY, LEANNA E ROCK LATHER Ot J44.9 CHRONIC OBSTRUCTIVE PULMONARY DISEASE, U 11/15/2018 DAISY, LEANNA E ROCK LATHER Ot R06.02 SHORTNESS OF BREATH 11/15/2018 DAISY, LEANNA E ROCK LATHER Ot Z68.42 BODY MASS INDEX (BMI) 45.0-49.9, ADULT 11/15/2018 LEANNA VILLA ROCK LATHER Ot Z72.0 TOBACCO USE 11/24/2018 LEANNA VILLA ROCK LATHER Ot E66.9 OBESITY, UNSPECIFIED 11/24/2018 LEANNA VILLA ROCK LATHER Ot G47.10 HYPERSOMNIA, UNSPECIFIED 11/24/2018 DAISYLEANNA CHAIREZ ROCK LATHER Ot G47.33 OBSTRUCTIVE SLEEP APNEA (ADULT) (PEDIATR 11/24/2018 DAISYLEANNA CHAIREZ ROCK LATHER Ot G47.50 PARASOMNIA, UNSPECIFIED 11/24/2018 LEANNA VILLA ROCK LATHER Ot J44.9 CHRONIC OBSTRUCTIVE PULMONARY DISEASE, U 11/24/2018 LEANNA VILLA ROCK LATHER Ot R06.02 SHORTNESS OF BREATH 11/24/2018 LEANNA VILLA ROCK LATHER Ot Z68.42 BODY MASS INDEX (BMI) 45.0-49.9, ADULT 11/24/2018 LEANNA VILLA ROCK LATHER Ot Z72.0 TOBACCO USE 11/28/2018 RASHEED RAHMAN Ot V76.12 OT SCREEN MAMMO-MALIGN NEOPLASM OF SAMANTHA 11/28/2018 SAMEERA ESCOTO, JAMIE Ot V72.84 EXAM PRE-OPERATIVE NOS 11/28/2018 SOSA GUSMAN MD Ot 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 PATELLAE 11/28/2018 SOSA GUSMAN MD Ot V72.84 EXAM PRE-OPERATIVE NOS 11/28/2018 SOSA GUSMAN MD Ot V74.8 SCREEN-BACTERIAL DIS NEC 11/28/2018 SOSA GUSMAN MD Ot 727.61 ROTATOR CUFF RUPTURE 11/28/2018 RYAN JONES MD Ot 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 11/28/2018 RYAN JONES MD Ot 788.30 UNSPECIFIED URINARY INCONTINENCE 11/28/2018 RYAN JONES MD Ot V72.84 EXAM PRE-OPERATIVE NOS 11/28/2018 RYAN JONES MD Ot V74.8 SCREEN-BACTERIAL DIS NEC 11/28/2018 MORAIMA NOEL DO Ot 719.46 JOINT PAIN-L/LEG 11/28/2018 MORAIMA NOEL DO Ot 724.2 LUMBAGO 11/28/2018 BERT HDEZ, MORAIMA Moeller Ot 959.7 LOWER LEG INJURY NOS 11/28/2018 BERT HDEZ MORAIMA Moeller Ot E000.8 OTHER EXTERNAL CAUSE STATUS 11/28/2018 BERT HDEZ MORAIMA Moeller Ot E849.0 ACCIDENT IN HOME 11/28/2018 BERT HDEZ MORAIMA Moeller Ot E888.9 FALL NOS 11/28/2018 BERT HDEZ MORAIMA Moeller Ot 789.01 ABDOMINAL PAIN, RIGHT UPPER QUADRANT 11/28/2018 BERT HDEZMORAIMA Ot 575.8 DIS OF GALLBLADDER NEC 11/28/2018 RUFINA ESCOTO, NARAYAN Marr Ot 575.8 DIS OF GALLBLADDER NEC 11/28/2018 RUFINA ESCOTO, NARAYAN Marr Ot V72.63 PRE-PROCEDURAL LABORATORY EXAMINATION 11/28/2018 RUFINA ESCOTO, NARAYAN Marr Ot V72.81 [id number] CARDIOVASCULAR 11/28/2018 RUFINA ESCOTO, NARAYAN Marr Ot V74.8 SCREEN-BACTERIAL DIS NEC 11/28/2018 NESS ESCOTO, SOSA Shelby Ot 715.31 LOC OSTEOARTH NOS-SHLDER 11/28/2018 NESS ESCOTO, SOSA Shelby Ot 727.61 ROTATOR CUFF RUPTURE 11/28/2018 NESS ESCOTO, SOSA Shelby Ot 840.7 (SLAP) SUPERIOR GLENOID LABRUM LESIONS 11/28/2018 NESS ESCOTO, SOSA Shelby Ot V72.83 EXAM PRE-OPERATIVE NEC 11/28/2018 Ot G56.02 CARPAL TUNNEL SYNDROME, LEFT UPPER LIMB 11/28/2018 Ot Z01.818 ENCOUNTER FOR OTHER PREPROCEDURAL EXAMIN 11/28/2018 Ot Z11.2 ENCOUNTER FOR SCREENING FOR OTHER BACTER 11/28/2018 RASHEED RAHMAN Ot Z12.31 ENCNTR SCREEN MAMMOGRAM FOR MALIGNANT NE 11/28/2018 BERT HDEZ MORAIMA Moeller Ot Z13.89 ENCOUNTER FOR SCREENING FOR OTHER DISORD 11/28/2018 NESS ESCOTO, SOSA Shelby Ot G56.01 CARPAL TUNNEL SYNDROME, RIGHT UPPER LIMB 11/28/2018 NESS ESCOTO, SOSA Shelby Ot Z01.818 ENCOUNTER FOR OTHER PREPROCEDURAL EXAMIN 11/28/2018 BERT HDEZMORAIMA Ot J40 BRONCHITIS, NOT SPECIFIED ACUTE OR CH 11/28/2018 GELMORAIMA PETE DO Ot J44.9 CHRONIC OBSTRUCTIVE PULMONARY DISEASE, U 11/28/2018 MORAIMA NOEL DO Ot N39.0 URINARY TRACT INFECTION, SITE NOT SPECIF 11/28/2018 TILLMAN DINO Radu LIABILITY CLAIMS ADJUSTER Ot R22.31 LOCALIZED SWELLING, MASS AND LUMP, RIGHT 11/28/2018 RASHEED RAHMAN DIAMOND Ot Z12.31 ENCNTR SCREEN MAMMOGRAM FOR MALIGNANT NE 11/28/2018 NESS ESCOTO, SOSA Shelby Ot M75.121 COMPLETE ROTATR-CUFF TEAR/RUPTR OF R JOSSY 11/28/2018 MEDARDO DUFFY MD Ot Z51.81 ENCOUNTER FOR THERAPEUTIC DRUG LEVEL MON 11/28/2018 MEDARDO DUFFY MD, Ot Z79.899 OTHER PROPELLER ENGINEER (CURRENT) DRUG THERAPY 11/28/2018 MEDARDO DUFFY MD, Ot Z12.31 ENCNTR SCREEN MAMMOGRAM FOR MALIGNANT NE 11/28/2018 PAMELA ESCOTO, JEN Zhong Ot M25.811 OTHER SPECIFIED JOINT DISORDERS, RIGHT S 11/28/2018 JOSEE ESCOTO FACC, ALI FACP CCDS Ot E78.4 OTHER HYPERLIPIDEMIA 11/28/2018 JOSEE ESCOTO FACC, ALI FACP CCDS Ot I10 ESSENTIAL (PRIMARY) HYPERTENSION 11/28/2018 JOSEE ESCOTO FACC, ALI FACP CCDS Ot J43.8 OTHER EMPHYSEMA 11/28/2018 JOSEE ESCOTO FACC, ALI FACP CCDS Ot R06.02 SHORTNESS OF BREATH 11/28/2018 JOSEE ESCOTO FACC, ALI FACP CCDS Ot Z72.0 TOBACCO USE 11/28/2018 SOSA RESENDIZ MD Ot 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 11/28/2018 SOSA RESENDIZ MD Ot T65.222D TOXIC EFFECT OF TOBACCO CIGARETTES, SELF 11/28/2018 SOSA RESENDIZ MD Ot 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 11/28/2018 SOSA RESENDIZ MD Ot T65.222D TOXIC EFFECT OF TOBACCO CIGARETTES, SELF 11/28/2018 COURTNEY HONG LIABILITY CLAIMS ADJUSTER Ot E78.4 OTHER HYPERLIPIDEMIA 11/28/2018 COURTNEY HONG LIABILITY CLAIMS ADJUSTER Ot F17.200 NICOTINE DEPENDENCE, UNSPECIFIED, UNCOMP 11/28/2018 COURTNEY HONG LIABILITY CLAIMS ADJUSTER Ot I10 ESSENTIAL (PRIMARY) HYPERTENSION 11/28/2018 BAIMA, COURTNEY L LIABILITY CLAIMS ADJUSTER Ot I70.213 ATHSCL [place] ARTERIES OF [facility] 11/28/2018 BAIMA, COURTNEY L LIABILITY CLAIMS ADJUSTER Ot E78.2 MIXED HYPERLIPIDEMIA 11/28/2018 BAIMA, COURTNEY L LIABILITY CLAIMS ADJUSTER Ot I10 ESSENTIAL (PRIMARY) HYPERTENSION 11/28/2018 BAIMA, COURTNEY L LIABILITY CLAIMS ADJUSTER Ot I65.23 OCCLUSION AND STENOSIS OF BILATERAL [place] 11/28/2018 BAIMA, COURTNEY L LIABILITY CLAIMS ADJUSTER Ot I70.213 ATHSCL [place] ARTERIES OF [facility] 11/28/2018 BAIMA, COURTNEY L LIABILITY CLAIMS ADJUSTER Ot R06.00 DYSPNEA, UNSPECIFIED 11/28/2018 BAIMA, COURTNEY L LIABILITY CLAIMS ADJUSTER Ot R60.0 LOCALIZED EDEMA 11/28/2018 BAIMA, COURTNEY L LIABILITY CLAIMS ADJUSTER Ot E78.2 MIXED HYPERLIPIDEMIA 11/28/2018 BAIMA, COURTNEY L LIABILITY CLAIMS ADJUSTER Ot I10 ESSENTIAL (PRIMARY) HYPERTENSION 11/28/2018 BAIMA, COURTNEY L LIABILITY CLAIMS ADJUSTER Ot I65.23 OCCLUSION AND STENOSIS OF BILATERAL [place] 11/28/2018 BAIMA, COURTNEY L LIABILITY CLAIMS ADJUSTER Ot I70.213 ATHSCL [place] [facility]ERIES OF [facility] 11/28/2018 BAIMA, COURTNEY L LIABILITY CLAIMS ADJUSTER Ot R06.09 OTHER FORMS OF DYSPNEA 11/28/2018 BAIMA, COURTNEY L LIABILITY CLAIMS ADJUSTER Ot R60.0 LOCALIZED EDEMA 11/28/2018 SAKINA PARRA ROCK LATHER Ot Z12.31 ENCNTR SCREEN MAMMOGRAM FOR MALIGNANT NE 11/28/2018 LEANNA VILLA APRN Ot E66.09 OTHER OBESITY DUE TO EXCESS CALORIES 11/28/2018 LEANNA VILLA ROCK LATHER Ot G47.50 PARASOMNIA, UNSPECIFIED 11/28/2018 LEANNA VILLA ROCK LATHER Ot J44.9 CHRONIC OBSTRUCTIVE PULMONARY DISEASE, U 11/28/2018 LEANNA VILLA ROCK LATHER Ot R29.818 OTHER SYMPTOMS AND SIGNS INVOLVING THE N 11/28/2018 LEANNA VILLA ROCK LATHER Ot R91.8 OTHER NONSPECIFIC ABNORMAL FINDING OF LISA 11/28/2018 LEANNA VILLA ROCK LATHER Ot Z72.0 TOBACCO USE 11/28/2018 LEANNA VILLA ROCK LATHER Ot E66.09 OTHER OBESITY DUE TO EXCESS CALORIES 11/28/2018 LEANNA VILLA ROCK LATHER Ot G47.10 HYPERSOMNIA, UNSPECIFIED 11/28/2018 DAISY, LEANNA Arvin ROCK LATHER Ot G47.50 PARASOMNIA, UNSPECIFIED 11/28/2018 LEANNA VILLA ROCK LATHER Ot J43.8 OTHER EMPHYSEMA 11/28/2018 DAISY, LEANNA Sheridan ROCK LATHER Ot R06.02 SHORTNESS OF BREATH 11/28/2018 LEANNA VILLA ROCK LATHER Ot Z72.0 TOBACCO USE 11/28/2018 Ot E66.9 OBESITY, UNSPECIFIED 11/28/2018 Ot G47.10 HYPERSOMNIA, UNSPECIFIED 11/28/2018 Ot G47.33 OBSTRUCTIVE SLEEP APNEA (ADULT) (PEDIATR 11/28/2018 Ot G47.50 PARASOMNIA, UNSPECIFIED 11/28/2018 Ot J44.9 CHRONIC OBSTRUCTIVE PULMONARY DISEASE, U 11/28/2018 Ot R06.02 SHORTNESS OF BREATH 11/28/2018 Ot Z68.42 BODY MASS INDEX (BMI) 45.0-49.9, ADULT 11/28/2018 Ot Z72.0 TOBACCO USE 11/28/2018 LEANNA VILLA ROCK LATHER Ot E66.09 OTHER OBESITY DUE TO EXCESS CALORIES 11/28/2018 YA VILLAINE E ROCK LATHER Ot G47.10 HYPERSOMNIA, UNSPECIFIED 11/28/2018 YA VILLAINE E ROCK LATHER Ot G47.33 OBSTRUCTIVE SLEEP APNEA (ADULT) (PEDIATR 11/28/2018 LEANNA VILLA ROCK LATHER Ot G47.50 PARASOMNIA, UNSPECIFIED 11/28/2018 LEANNA VILLA ROCK LATHER Ot J44.9 CHRONIC OBSTRUCTIVE PULMONARY DISEASE, U 11/28/2018 LEANNA VILLA ROCK LATHER Ot R91.1 SOLITARY PULMONARY NODULE 11/28/2018 LEANNA VILLA ROCK LATHER Ot Z72.0 TOBACCO USE 11/28/2018 YA VILLAINE E ROCK LATHER Ot E66.9 OBESITY, UNSPECIFIED 11/28/2018 YA VILLAINE E ROCK LATHER Ot G47.10 HYPERSOMNIA, UNSPECIFIED 11/28/2018 DAISY LEANNA E ROCK LATHER Ot G47.33 OBSTRUCTIVE SLEEP APNEA (ADULT) (PEDIATR 11/28/2018 LEANNA VILLA ROCK LATHER Ot G47.50 PARASOMNIA, UNSPECIFIED 11/28/2018 YA VILLAINE E ROCK LATHER Ot J44.9 CHRONIC OBSTRUCTIVE PULMONARY DISEASE, U 11/28/2018 DAISY, LEANNA E ROCK LATHER Ot R06.02 SHORTNESS OF BREATH 11/28/2018 DAISY, LEANNA E ROCK LATHER Ot Z68.42 BODY MASS INDEX (BMI) 45.0-49.9, ADULT 11/28/2018 YA VILLAINE E ROCK LATHER Ot Z72.0 TOBACCO USE 11/28/2018 DAISY, LEANNA E ROCK LATHER Ot E66.09 OTHER OBESITY DUE TO EXCESS CALORIES 11/28/2018 DAISY, LEANNA E ROCK LATHER Ot G47.10 HYPERSOMNIA, UNSPECIFIED 11/28/2018 DAISY, LEANNA E ROCK LATHER Ot G47.33 OBSTRUCTIVE SLEEP APNEA (ADULT) (PEDIATR 11/28/2018 DAISY, LEANNA E ROCK LATHER Ot G47.50 PARASOMNIA, UNSPECIFIED 11/28/2018 YA VILLAINE E ROCK LATHER Ot J44.9 CHRONIC OBSTRUCTIVE PULMONARY DISEASE, U 11/28/2018 YA VILLAINE E ROCK LATHER Ot R91.1 SOLITARY PULMONARY NODULE 11/28/2018 YA VILLAINE E ROCK LATHER Ot Z72.0 TOBACCO USE 11/28/2018 DAISY, LEANNA E ROCK LATHER Ot E66.09 OTHER OBESITY DUE TO EXCESS CALORIES 11/28/2018 YA VILLAINE E ROCK LATHER Ot G47.10 HYPERSOMNIA, UNSPECIFIED 11/28/2018 DAISY, LEANNA E ROCK LATHER Ot G47.33 OBSTRUCTIVE SLEEP APNEA (ADULT) (PEDIATR 11/28/2018 YA VILLAINE E ROCK LATHER Ot G47.50 PARASOMNIA, UNSPECIFIED 11/28/2018 YA VILLAINE E ROCK LATHER Ot J44.9 CHRONIC OBSTRUCTIVE PULMONARY DISEASE, U 11/28/2018 DAISY, LEANNA E ROCK LATHER Ot R91.1 SOLITARY PULMONARY NODULE 11/28/2018 DAISY, LEANNA E ROCK LATHER Ot Z72.0 TOBACCO USE 11/28/2018 DAISY, LEANNA E ROCK LATHER Ot E66.09 OTHER OBESITY DUE TO EXCESS CALORIES 11/28/2018 DAISY, LEANNA E ROCK LATHER Ot G47.10 HYPERSOMNIA, UNSPECIFIED 11/28/2018 DAISY, LEANNA E ROCK LATHER Ot G47.33 OBSTRUCTIVE SLEEP APNEA (ADULT) (PEDIATR 11/28/2018 DAISY, LEANNA E ROCK LATHER Ot G47.50 PARASOMNIA, UNSPECIFIED 11/28/2018 LEANNA VILLA APRN Ot J44.9 CHRONIC OBSTRUCTIVE PULMONARY DISEASE, U 11/28/2018 LEANNA VILLA APRN Ot R91.1 SOLITARY PULMONARY NODULE 11/28/2018 LEANNA VILLA ROCK LATHER Ot Z72.0 TOBACCO USE 11/29/2018 THOMAS JENNINGS Ot K44.9 DIAPHRAGMATIC HERNIA WITHOUT OBSTRUCTION 11/30/2018 LEANNA VILLA APRN Ot E66.9 OBESITY, UNSPECIFIED 11/30/2018 LEANNA VILLA ROCK LATHER Ot G47.10 HYPERSOMNIA, UNSPECIFIED 11/30/2018 LEANNA VILLA ROCK LATHER Ot G47.33 OBSTRUCTIVE SLEEP APNEA (ADULT) (PEDIATR 11/30/2018 LEANNA VILLA ROCK LATHER Ot G47.50 PARASOMNIA, UNSPECIFIED 11/30/2018 LEANNA VILLA APRN Ot J44.9 CHRONIC OBSTRUCTIVE PULMONARY DISEASE, U 11/30/2018 LEANNA VILLA APRN Ot R06.02 SHORTNESS OF BREATH 11/30/2018 LEANNA VILLA APRN Ot Z68.42 BODY MASS INDEX (BMI) 45.0-49.9, ADULT 11/30/2018 LEANNA VILLA APRN Ot Z72.0 TOBACCO USE 12/04/2018 THOMAS JENNINGS Ot K44.9 DIAPHRAGMATIC HERNIA WITHOUT OBSTRUCTION 01/03/2019 THOMAS JENNINGS Ot K44.9 DIAPHRAGMATIC HERNIA WITHOUT OBSTRUCTION Procedures Code Description Performed By Performed On 38.93 VENOUS CATHETERIZATION NEC 08/13/2011 81.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 10/23/2011 59604 XRAY KNEE RIGHT 1 OR 2 VIEWS 02/12/2013 Q0091 PAP SMEAR OBTAIN SMEAR 06/02/2013 74029 HEMOCCULT 06/02/2013 66126 PAP SMEAR 06/05/2013 71811 CULTURE WOUND (AEROBIC) 07/06/2013 14897 URINE DRUG SCREEN (IN-HOUSE) 09/11/2013 95308 URINE METH/AMPHETAMINE GC/MS 09/18/2013 16140 ROUTINE VENIPUNCTURE 11/17/2013 00382 CBC 11/17/2013 Orthophemanti Sosa Gusman 11/20/2013 05691 HEMOCCULT 11/20/2013 37623 HEMOCCULT 11/20/2013 45386 XRAY KNEE LEFT, 1 OR 2 VIEWS 11/20/2013 13988 MAMMOGRAM, SCREENING 11/21/2013 30058 AMERITOX 11/21/2013 General S Darrel Love 11/21/2013 70353 ROUTINE VENIPUNCTURE 12/02/2013 89136 CBC 12/02/2013 [id number] GFR CALC (RESULT ONLY) 12/02/2013 53891 CMP 12/02/2013 25777 LIPID PANEL 12/02/2013 02458 XRAY FOOT LEFT COMP MIN 3 VIEWS 01/05/2014 Cardiolog Josee, Ali 01/05/2014 08651 XRAY FOOT RIGHT COMP MIN 3 VIEWS 01/05/2014 89316 UA W/ CULTURE IF INDICATED 01/05/2014 90553 CULTURE URINE 01/06/2014 46390 ROUTINE VENIPUNCTURE 03/19/2014 G0008 FLU ADMINISTRATION (MEDICARE ONLY) 03/19/2014 02381 PULMONARY EDUCATION 03/19/2014 G0437 TOBACCO-USE CANE LOADER>10MIN 03/19/2014 2755092 GFR CALC (RESULT ONLY) 03/19/2014 38512 BMP 03/19/2014 14343 MAGNESIUM 03/19/2014 Physical Physical Therapy, [facility] 03/30/2014 15201 DEBRIDE NAIL >6 04/17/2014 72047 OXIMETRY 06/03/2014 98131 AMERITOX 07/08/2014 [id number] INSERTION OF INFUSION DEV INTO SUP VENA [...] Blood lactic acid measurement (moles/volume) 1.8 mmol/L 0.5- 2.0 Comprehensive metabolic panel - 04/12/16 10:10 Serum [...] Serum or plasma aspartate aminotransferase measurement (enzymatic activity/volume) 20 U/L 5-34 Serum or plasma alanine aminotransferase measurement (enzymatic activity/volume) 18 U/L 0-55 Serum or plasma protein measurement (mass/volume) 6.5 g/dL 6.4-8.2 Serum or plasma albumin measurement (mass/volume) 3.6 g/dL 3.2-4.5 Serum or plasma troponin i.cardiac measurement (mass/volume) - 04/12/16 10:10 Serum or plasma troponin i.cardiac measurement (mass/volume) < ng/mL <0.30 Serum or plasma C reactive protein measurement (mass/volume) - 04/12/16 10:10 Serum or plasma C reactive protein measurement (mass/volume) 4.67 mg/dL 0.00-0.50 Bacterial blood culture - 04/12/16 10:10 [...] Automated erythrocyte mean corpuscular hemoglobin concentration measurement (mass/volume) 33 g/dL 32-36 Automated erythrocyte distribution width ratio 13.7 % 10.0- 14.5 Automated blood platelet count (count/volume) 122 10*3/uL [...] Blood monocytes automated count (number/volume) 0.6 10*3 0.0- 1.0 Automated eosinophil count 0.3 10*3/uL 0.0-0.3 Automated [...] Serum or plasma aspartate aminotransferase measurement (enzymatic activity/volume) 13 U/L 5-34 Serum or plasma alanine aminotransferase measurement (enzymatic activity/volume) 16 U/L 0-55 Serum or plasma protein [...] Automated erythrocyte mean corpuscular hemoglobin concentration measurement (mass/volume) 34 g/dL 32-36 Automated erythrocyte distribution width ratio 15.6 % 10.0- 14.5 Automated blood platelet count (count/volume) 221 10*3/uL [...] Blood monocytes automated count (number/volume) 1.3 10*3 0.0- 1.0 Automated eosinophil count 0.1 10*3/uL 0.0-0.3 Automated [...] Serum or plasma aspartate aminotransferase measurement (enzymatic activity/volume) 30 U/L 5-34 Serum or plasma alanine aminotransferase measurement (enzymatic activity/volume) 26 U/L 0-55 Serum or plasma protein [...] Blood lactic acid measurement (moles/volume) 1.9 mmol/L 0.5- 2.0 Bacterial blood culture - 07/12/16 15:50 Bacterial blood culture NG NRG Bacterial blood culture - 07/12/16 16:37 Bacterial blood culture NG NRG Methicillin resistant Staphylococcus aureus (MRSA) screening culture - 07/12/16 21:50 Methicillin resistant Staphylococcus aureus (MRSA) screening [...] Automated erythrocyte mean corpuscular hemoglobin concentration measurement (mass/volume) 33 g/dL 32-36 Automated erythrocyte distribution width ratio 16.0 % 10.0- 14.5 Automated blood platelet count (count/volume) 186 10*3/uL [...] Blood monocytes automated count (number/volume) 0.9 10*3 0.0- 1.0 Automated eosinophil count 0.2 10*3/uL 0.0-0.3 Automated blood basophil count (count/volume) 0.0 10*3/uL 0.0-0.1 Comprehensive metabolic panel - 07/13/16 04:11 Serum or plasma sodium measurement (moles/volume) 141 mmol/L 135-145 Serum or plasma potassium measurement (moles/volume) 2.4 mmol/L 3.6-5.0 Serum or plasma chloride measurement (moles/volume) 101 mmol/L 98-107 Carbon dioxide 29 mmol/L -32 Serum or plasma anion gap [...] Serum or plasma aspartate aminotransferase measurement (enzymatic activity/volume) 26 U/L 5-34 Serum or plasma alanine aminotransferase measurement (enzymatic activity/volume) 20 U/L 0-55 Serum or plasma protein [...] 102 mmol/L 98-107 Carbon dioxide 30 mmol/L -32 Serum or plasma anion gap [...] 17:58 Bacteria identification in wound by culture [id number] NRG QUANTITY OF GROWTH Scant Growth NRG [...] Automated erythrocyte mean corpuscular hemoglobin concentration measurement (mass/volume) 33 g/dL 32-36 Automated erythrocyte distribution width ratio 16.8 % 10.0- 14.5 Automated blood platelet count (count/volume) 185 10*3/uL [...] Blood monocytes automated count (number/volume) 0.6 10*3 0.0- 1.0 Automated eosinophil count 0.2 10*3/uL 0.0-0.3 Automated [...] Automated erythrocyte mean corpuscular hemoglobin concentration measurement (mass/volume) 32 g/dL 32-36 Automated erythrocyte distribution width ratio 16.4 % 10.0- 14.5 Automated blood platelet count (count/volume) 187 10*3/uL [...] Blood monocytes automated count (number/volume) 0.5 10*3 0.0- 1.0 Automated eosinophil count 0.3 10*3/uL 0.0-0.3 Automated [...] Serum or plasma aspartate aminotransferase measurement (enzymatic activity/volume) 13 U/L 5-34 Serum or plasma alanine aminotransferase measurement (enzymatic activity/volume) 13 U/L 0-55 Serum or plasma protein [...] 09:37 Bacteria identification in wound by culture [id number] NR FREE TEXT EXTERNAL (NOT JK) NRG [...] Automated erythrocyte mean corpuscular hemoglobin concentration measurement (mass/volume) 34 g/dL 32-36 Automated erythrocyte distribution width ratio 13.3 % 10.0- 14.5 Automated blood platelet count (count/volume) 138 10*3/uL [...] Serum or plasma aspartate aminotransferase measurement (enzymatic activity/volume) 17 U/L 5-34 Serum or plasma alanine aminotransferase measurement (enzymatic activity/volume) 15 U/L 0-55 Serum or plasma protein measurement (mass/volume) 6.7 g/dL 6.4-8.2 Serum or plasma albumin measurement (mass/volume) 3.6 g/dL 3.2-4.5 Influenza virus A and B antigen detection - 07/19/17 17:05 FLU RESULT NEGATIVE FOR INFLUENZA A AND B ANTIGENS BY [facility] Complete blood count (CBC) with automated [...] Automated erythrocyte mean corpuscular hemoglobin concentration measurement (mass/volume) 34 g/dL 32-36 Automated erythrocyte distribution width ratio 13.5 % 10.0- 14.5 Automated blood platelet count (count/volume) 150 10*3/uL [...] Blood monocytes automated count (number/volume) 0.8 10*3 0.0- 1.0 Automated eosinophil count 0.5 10*3/uL 0.0-0.3 Automated [...] Serum or plasma aspartate aminotransferase measurement (enzymatic activity/volume) 18 U/L 5-34 Serum or plasma alanine aminotransferase measurement (enzymatic activity/volume) 16 U/L 0-55 Serum or plasma protein [...] 12.1 fL 7.5-12.5 ABSOLUTE NEUTROPHILS 4494 cells/uL 8739-9977 ABSOLUTE LYMPHOCYTES 1711 cells/uL 850-3900 ABSOLUTE MONOCYTES [...] Automated erythrocyte mean corpuscular hemoglobin concentration measurement (mass/volume) 33 g/dL 32-36 Automated erythrocyte distribution width ratio 14.4 % 10.0- 14.5 Automated blood platelet count (count/volume) 168 10*3/uL [...] Serum or plasma aspartate aminotransferase measurement (enzymatic activity/volume) 24 U/L 5-34 Serum or plasma alanine aminotransferase measurement (enzymatic activity/volume) 21 U/L 0-55 Serum or plasma protein measurement (mass/volume) 7.4 g/dL 6.4-8.2 Serum or plasma albumin measurement (mass/volume) 3.9 g/dL 3.2-4.5 CALCIUM CORRECTED 9.5 mg/dL 8.5-10.1 Lipid 1996 panel - 03/26/18 10:15 Serum or plasma triglyceride measurement (mass/volume) 125 mg/dL <150 Serum or plasma cholesterol measurement (mass/volume) 152 mg/dL < 200 Serum or plasma cholesterol in HDL measurement (mass/volume) 44 mg/dL 40-60 Cholesterol in LDL [mass/volume] in serum or plasma by direct assay 92 mg/dL 1-129 Serum or plasma cholesterol in VLDL measurement (mass/volume) 25 mg/dL 5-40 Methicillin resistant Staphylococcus aureus (MRSA) screening culture - 03/26/18 10:15 Methicillin resistant Staphylococcus aureus (MRSA) screening culture NEG NRG Complete blood count (CBC) with automated white blood cell (WBC) differential - 05/19/18 11:35 Blood leukocytes automated count (number/volume) 8.3 10*3/uL 4.3-11.0 Blood erythrocytes automated count (number/volume) 5.07 10*6/uL 4.35-5.85 Venous blood hemoglobin measurement (mass/volume) 14.3 g/dL 11.5-16.0 Blood hematocrit (volume fraction) 44 % 35-52 Automated erythrocyte mean corpuscular volume 86 [foz_us] 80-99 Automated erythrocyte mean corpuscular hemoglobin (mass per erythrocyte) 28 pg 25-34 Automated erythrocyte mean corpuscular hemoglobin concentration measurement (mass/volume) 33 g/dL 32-36 Automated erythrocyte distribution width ratio 14.6 % 10.0- 14.5 Automated blood platelet count (count/volume) 162 10*3/uL 130-400 Automated blood platelet mean volume measurement 11.8 [foz_us] 7.4-10.4 Automated blood neutrophils/100 leukocytes 64 % 42-75 Automated blood lymphocytes/100 leukocytes 21 % 12-44 Blood monocytes/100 leukocytes 11 % 0-12 Automated blood eosinophils/100 leukocytes 4 % 0-10 Automated blood basophils/100 leukocytes 0 % 0-10 Blood neutrophils automated count (number/volume) 5.3 10*3 1.8-7.8 Blood lymphocytes automated count (number/volume) 1.8 10*3 1.0-4.0 Blood monocytes automated count (number/volume) 0.9 10*3 0.0- 1.0 Automated eosinophil count 0.3 10*3/uL 0.0-0.3 Automated blood basophil count (count/volume) 0.0 10*3/uL 0.0-0.1 Comprehensive metabolic panel - 05/19/18 12:32 Serum or plasma sodium measurement (moles/volume) 139 mmol/L 135-145 Serum or plasma potassium measurement (moles/volume) 4.8 mmol/L 3.6-5.0 Serum or plasma chloride measurement (moles/volume) 109 mmol/L 98-107 Carbon dioxide 19 mmol/L 21-32 Serum or plasma anion gap determination (moles/volume) 11 mmol/L 5-14 Serum or plasma urea nitrogen measurement (mass/volume) 22 mg/dL 7-18 Serum or plasma creatinine measurement (mass/volume) 0.91 mg/dL 0.60-1.30 Serum or plasma urea nitrogen/creatinine mass ratio 24 NRG Serum or plasma creatinine measurement with calculation of estimated glomerular filtration rate > NRG Serum or plasma glucose measurement (mass/volume) 94 mg/dL 70-105 Serum or plasma calcium measurement (mass/volume) 8.6 mg/dL 8.5-10.1 Serum or plasma total bilirubin measurement (mass/volume) 0.3 mg/dL 0.1-1.0 Serum or plasma alkaline phosphatase measurement (enzymatic activity/volume) 65 U/L 40-136 Serum or plasma aspartate aminotransferase measurement (enzymatic activity/volume) 18 U/L 5-34 Serum or plasma alanine aminotransferase measurement (enzymatic activity/volume) 18 U/L 0-55 Serum or plasma protein measurement (mass/volume) 6.7 g/dL 6.4-8.2 Serum or plasma albumin measurement (mass/volume) 3.6 g/dL 3.2-4.5 CALCIUM CORRECTED 8.9 mg/dL 8.5-10.1 Lipase - 05/19/18 12:32 Lipase 12 U/L 8-78 Complete urinalysis with reflex to culture - 05/19/18 13:01 Urine color determination YELLOW NRG Urine clarity determination SLIGHTLY CLOUDY NRG Urine pH measurement by test strip 6.5 5-9 Specific gravity of urine by test strip 1.005 1.016-1.022 Urine protein assay by test strip, semi-quantitative NEGATIVE NEGATIVE Urine glucose detection by automated test strip NEGATIVE NEGATIVE Erythrocytes detection in urine sediment by light microscopy NEGATIVE NEGATIVE Urine ketones detection by automated test strip NEGATIVE NEGATIVE Urine nitrite detection by test strip NEGATIVE NEGATIVE Urine total bilirubin detection by test strip NEGATIVE NEGATIVE Urine urobilinogen measurement by automated test strip (mass/volume) NORMAL NORMAL Urine leukocyte esterase detection by dipstick NEGATIVE NEGATIVE Automated urine sediment erythrocyte count by microscopy (number/high power field) NONE NRG Automated urine sediment leukocyte count by microscopy (number/high power field) NONE NRG Bacteria detection in urine sediment by light microscopy NEGATIVE NRG Squamous epithelial cells detection in urine sediment by light microscopy 2-5 NRG Crystals detection in urine sediment by light microscopy NONE NRG Casts detection in urine sediment by light microscopy NONE NRG Mucus detection in urine sediment by light microscopy NEGATIVE NRG Complete urinalysis with reflex to culture NO NRG SUREPATH PAP AND HPV mRNA E6/E7 - 05/21/18 16:17 CLINICAL INFORMATION: NRG LMP: N/A NRG PREV. PAP: 2013- WNL NRG PREV. 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 HPV mRNA E6/E7, SUREPATH VIAL Not Detected NOT DETECTED COMMENT NRG Arterial blood gas measurement - 07/29/18 10:44 Blood pCO2 44 mm[Hg] 35-45 Blood pO2 61 mm[Hg] 79-93 Arterial blood bicarbonate measurement (moles/volume) 27 mmol/L 23-27 Arterial blood base excess by calculation 2.5 mmol/L -2.5-2.5 Arterial blood oxygen saturation measurement 93 % 94-100 * Inhaled oxygen flow rate ROOM AIR NRG Arterial blood pH measurement with patient temperature correction 7.40 7.37-7.43 Arterial blood carbon dioxide, total measurement (moles/volume) 28.4 mmol/L 21.0-31.0 Body site RT BRACH NRG Assessment of wrist artery patency prior to arterial puncture YES-POS NRG Setting of ventilation mode NO NRG Measurement of body temperature 97.6 NRG Encounters ACCT No. Visit Date/Time Discharge Status Pt. Type Provider Facility Loc./Unit Complaint [id number] 07/06/2014 11:51:00 07/06/2014 23:59:59 CLS Outpatient RASHEED RAHMAN APRN [id number] 06/03/2014 10:36:00 06/03/2014 23:59:59 CLS Outpatient RASEHED RAHMAN APRN [id number] 06/03/2014 10:36:00 06/03/2014 23:59:59 CLS Outpatient RASHEED RAHMAN APRN [id number] 04/17/2014 10:45:00 04/17/2014 23:59:59 CLS Outpatient JACK YUAN DO [id number] 03/19/2014 11:26:00 03/19/2014 23:59:59 CLS Outpatient RASHEED RAHMAN APRN S [id number] 01/22/2014 13:09:00 01/22/2014 23:59:59 CLS Outpatient ARIAS GRAJEDA MD [id number] 01/05/2014 09:23:00 01/05/2014 23:59:59 CLS Outpatient JOSIAH ROCK LATHERRASHEED S [id number] 01/05/2014 09:23:00 01/05/2014 23:59:59 CLS Outpatient JOSIAH ROCK LATHERRASHEED S [id number] 12/02/2013 11:14:00 12/02/2013 23:59:59 CLS Outpatient JOSIAH ROCK LATHERNICOLAA S [id number] 11/20/2013 13:23:00 11/20/2013 23:59:59 CLS Outpatient JOSIAH COVARRUBIASNRASHEED S [id number] 11/20/2013 13:23:00 11/20/2013 23:59:59 CLS Outpatient JOSIAH ROCK LATHERRASHEED S [id number] 11/20/2013 12:59:00 11/20/2013 23:59:59 CLS Outpatient YUAN DO JACK Faust [id number] 11/17/2013 10:47:00 11/17/2013 23:59:59 CLS Outpatient NANCY ANAYA APRN L [id number] 09/11/2013 08:36:00 09/11/2013 23:59:59 CLS Outpatient RASHEED RAHMAN APRN S [id number] 09/11/2013 08:36:00 09/11/2013 23:59:59 CLS Outpatient RASHEED RAHMAN APRN S [id number] 09/04/2013 15:45:00 09/04/2013 23:59:59 CLS Outpatient JACK YUAN DO Christianne [id number] 08/15/2013 08:26:00 08/15/2013 23:59:59 CLS Outpatient AMINA MATTHEWS MD [id number] 07/10/2013 13:22:00 07/10/2013 23:59:59 CLS Outpatient JOSIAH COVARRUBIASNRASHEED S [id number] 06/02/2013 09:17:00 06/02/2013 23:59:59 CLS Outpatient JOSIAH ROCK LATHERNICOLAA S [id number] 06/02/2013 09:17:00 06/02/2013 23:59:59 CLS Outpatient RASHEED RAHMAN APRN [id number] 02/12/2013 13:47:00 02/12/2013 23:59:59 CLS Outpatient RASHEED RAHMAN APRN [id number] 02/12/2013 13:47:00 02/12/2013 23:59:59 CLS Outpatient RASHEED RAHMAN APRN [id number] 06/27/2012 09:44:00 06/27/2012 23:59:59 CLS Outpatient RASHEED RAHMAN APRN [id number] 04/02/2012 09:21:00 04/02/2012 23:59:59 CLS Outpatient [id number] 04/02/2012 09:21:00 04/02/2012 23:59:59 CLS Outpatient RASHEED RAHMAN APRN [id number] 01/07/2013 09:53:00 Document Registration [id number] 10/15/2012 10:07:00 Document Registration [id number] 01/01/2019 09:20:00 01/01/2019 23:59:59 CLS Outpatient THOMAS JENNINGS APRN 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 [facility] RAD SWALLOWING PROBLEM [id number] 11/25/2018 00:12:00 11/25/2018 23:59:59 CLS Preadmit LEANNA VILLA APRN [facility] PULM COPD [id number] 08/26/2018 09:05:00 11/24/2018 00:01:00 DIS Outpatient LEANNA VILLA APRN [facility] PULM COPD [id number] 10/21/2018 11:02:00 10/21/2018 23:59:59 CLS Outpatient LEANNA VILLA ROCK LATHER [facility] RAD COPD, HYPERSOMNIA, SLEEP DISORDER [id number] 07/27/2018 19:07:00 07/28/2018 06:04:00 DIS Outpatient LEANNA VILLA ROCK LATHER [facility] SLEEP SOB [id number] 07/26/2018 12:52:00 07/26/2018 23:59:59 CLS Outpatient LEANNA VILLA ROCK LATHER [facility] RT SOB [id number] 07/15/2018 11:27:00 07/15/2018 23:59:59 CLS Outpatient LEANNA VILLA ROCK LATHER [facility] RAD SOB [id number] 07/03/2018 11:28:00 07/03/2018 12:13:00 DIS Outpatient JEN SANTIAGO MD [facility] REHAB S/P L RCR [id number] 07/01/2018 16:35:00 07/01/2018 23:59:59 CLS Preadmit LEANNA VILLA ROCK LATHER [facility] RT SOB [id number] 06/06/2018 09:20:00 06/10/2018 16:20:00 DIS Outpatient JEN SANTIAGO MD [facility] REHAB S/P RCR [id number] 05/28/2018 09:00:00 05/28/2018 23:59:59 CLS Outpatient SAKINA PARRA ROCK LATHER [facility] RAD SCREENING [id number] 05/19/2018 10:58:00 05/19/2018 14:27:00 DIS Emergency LIBERTY SANDOVAL ROCK LATHER [facility] ER VOMITING,DIARRHEA [id number] 04/19/2018 10:58:00 04/19/2018 23:59:59 CLS Outpatient COURTNEY HONG [facility] CARD OCCUSION AND STENOSIS OF BILAT CAROTID ARTERIES [id number] 03/26/2018 08:36:00 03/26/2018 23:59:59 CLS Outpatient COURTNEY HONG [facility] RAD OCCLUSION AND STENOSIS OF BILAT CAROTID ARTERIES [id number] 03/26/2018 09:40:00 03/26/2018 16:00:00 DIS Outpatient JOSEE ESCOTO FACC, DANIEL MARIE CCDS [facility] CATH CLAUDICATION,SOB,BILAT LEG EDEMA [id number] 03/17/2018 10:55:00 03/17/2018 12:14:00 DIS Emergency JUANA GODWIN MD [facility] ER POSS ALLERGIC REACTION [id number] 03/05/2018 11:40:00 03/05/2018 23:59:59 CLS Outpatient RUTHIECOURTNEY MOSS Evan LIABILITY CLAIMS ADJUSTER [facility] RAD I10 HTN [id number] 09/12/2017 08:19:00 11/09/2017 10:48:00 DIS Outpatient JEN SANTIAGO MD [facility] REHAB LT SHOULDER RCR [id number] 08/23/2017 08:00:00 08/27/2017 00:01:00 DIS Outpatient JEN SANTIAGO MD [facility] REHAB LT SHOULDER RCR [id number] 07/19/2017 16:27:00 07/19/2017 20:52:00 DIS Emergency GERMAN HENDERSON MD [facility] ER VOMITING, CANT EAT [id number] 05/28/2017 10:12:00 05/28/2017 23:59:59 CLS Outpatient SOSA RESENDIZ MD [facility] WOUNDCARE [id number] 05/21/2017 08:43:00 05/21/2017 23:59:59 CLS Outpatient SOSA RESENDIZ MD [facility] WOUNDCARE [id number] 05/10/2017 07:08:00 05/10/2017 23:59:59 CLS Outpatient JOSEE ESCOTO FACCDANIEL FACP CCDS [facility] CARD R06.02 SOB [id number] 05/08/2017 09:13:00 05/08/2017 23:59:59 CLS Outpatient MEDARDO DUFFY MD [facility] RAD SCREENING [id number] 05/01/2017 08:15:00 05/01/2017 23:59:59 CLS Outpatient JEN SANTIAGO MD [facility] LAB PRE OP LABS [id number] 11/22/2016 11:00:00 11/22/2016 23:59:59 CLS Preadmit SOSA GUSMAN MD [facility] RAD SHOULDER JOINT PAIN M25.512 [id number] 10/25/2016 09:50:00 10/25/2016 23:59:59 CLS Outpatient MEDARDO DUFFY MD [facility] LAB Z79.899 [id number] 09/08/2016 08:23:00 09/08/2016 14:54:00 DIS Outpatient SOSA RESENDIZ MD [facility] WOUNDCARE [id number] 07/29/2016 07:42:00 07/29/2016 23:59:59 CLS Outpatient SOSA GUSMAN MD [facility] RAD COMPLETE ROTATOR CUFF TEAR OR RUPTURE [id number] 07/12/2016 18:16:00 07/15/2016 13:40:00 DIS Inpatient YAMILET SEGAL MD [facility] 4TH HYPOKALEMIA, NEUROTIC SKIN WOUND LEFT THIGH [id number] 04/12/2016 11:25:00 04/13/2016 16:00:00 DIS Inpatient LAURA ROBLERO MD [facility] ICU HYPOTENSION DIZZINESS ACUTE RENAL FAILURE [id number] 04/03/2016 09:24:00 04/03/2016 23:59:59 CLS Outpatient RASHEED RAHMAN [facility] RAD BREAST CANCER SCREENING [id number] 01/05/2016 10:45:00 02/21/2016 13:49:00 DIS Outpatient SOSA GUSMAN MD [facility] REHAB R SHOULDER SCOPE;BICEP TENOTOMY;DCE;SAD [id number] 01/12/2016 15:26:00 01/12/2016 23:59:59 CLS Outpatient DINO TILLMAN [facility] RAD R PROXIMAL FOREARM MAS [id number] 01/04/2016 09:53:00 01/04/2016 10:47:00 DIS Emergency LIBERTY SANDOVAL APRN [facility] ER BEE STING [id number] 12/27/2015 19:50:00 12/28/2015 05:30:00 DIS Outpatient RASHEED RAHMAN [facility] SLEEP SNORING,CHOKING/GASPING,DAYTIME SLEEPINESS [id number] 12/08/2015 10:23:00 12/08/2015 15:32:00 DIS Outpatient SOSA UGSMAN MD [facility] ARTHRITIS [id number] 11/25/2015 13:03:00 11/25/2015 13:32:00 DIS Outpatient SOSA GUSMAN MD [facility] PREOP ARTHRITIS [id number] 05/17/2015 10:40:00 05/17/2015 23:59:59 CLS Outpatient MORAIMA NOEL DO [facility] LAB INFECTION [id number] 04/30/2015 10:56:00 04/30/2015 23:59:59 CLS Outpatient MORAIMA NOEL DO [facility] RAD COPD,BRONCHITIS [id number] 04/21/2015 07:48:00 04/21/2015 11:40:00 DIS Outpatient SOSA GUSMAN MD [facility] RIGHT CARPAL TUNNEL SYNDROME [id number] 04/12/2015 08:19:00 04/12/2015 23:59:59 CLS Outpatient SOSA GUSMAN MD [facility] PREOP RIGHT CARPAL TUNNEL RELEASE [id number] 03/30/2015 10:44:00 03/30/2015 23:59:59 CLS Outpatient MORAIMA NOEL DO [facility] LAB CHECK FOR DRUGS [id number] 03/24/2015 09:00:00 03/24/2015 13:15:00 DIS Outpatient SOSA GUSMAN MD [facility] LEFT CARPAL TUNNEL SYNDROME [id number] 03/19/2015 10:46:00 03/19/2015 23:59:59 CLS Outpatient RASHEED RAHMAN [facility] RAD SCREENING [id number] 02/10/2015 10:43:00 02/10/2015 11:26:00 DIS Outpatient SOSA GUSMAN MD [facility] REHAB L SHOULDER; BICEP TENOTOMY; OPEN RC REPAIR [id number] 01/13/2015 06:00:00 01/13/2015 10:55:00 DIS Outpatient SOSA GUSMAN MD [facility] LEFT SHOULDER SLAP TEAR; ROTATOR CUFF TEAR [id number] 01/07/2015 09:59:00 01/07/2015 23:59:59 CLS Outpatient SOSA GUSMAN MD [facility] PREOP LEFT SHOULDER SLAP TEAR; ROTATOR CUFF TEAR [id number] 11/11/2014 08:36:00 11/11/2014 13:50:00 DIS Outpatient NARAYAN ALMARAZ MD [facility] DYSKNESIA [id number] 11/06/2014 12:39:00 11/06/2014 23:59:59 CLS Outpatient NARAYAN ALMARAZ MD [facility] PREOP DYSKNESIA [id number] 10/29/2014 09:26:00 10/29/2014 23:59:59 CLS Outpatient MORAIMA NOEL DO [facility] CARD PAIN IN RIGHT UPPER QUADRANT [id number] 10/22/2014 08:21:00 10/22/2014 23:59:59 CLS Outpatient MORAIMA NOEL DO [facility] RAD RUQ PAIN [id number] 10/12/2014 10:02:00 10/12/2014 23:59:59 CLS Outpatient MORAIMA NOEL DO [facility] RAD FELL RT KNEE PAIN, LOWER BACK PAIN [id number] 09/23/2014 06:00:00 09/23/2014 10:20:00 DIS Outpatient RYAN JONES MD [facility] INTRINSIC SPHINCTER DEFICIENCY; INCONTINENCE [id number] 09/16/2014 10:27:00 09/16/2014 23:59:59 CLS Outpatient RYAN JONES MD [facility] PREOP INTRINSIC SPHINCTER DEFICIENCY; INCONTINENCE [id number] 07/28/2014 09:04:00 07/28/2014 23:59:59 CLS Outpatient SOSA GUSMAN MD [facility] RAD LEFT SHOULDER RTC [id number] 04/10/2014 14:46:00 04/10/2014 15:58:00 DIS Emergency LIBERTY SANDOVAL APRN [facility] ER FEVER, SOA, DIARRHEA [id number] 04/07/2014 13:56:00 04/07/2014 17:00:00 DIS Outpatient RASHEED RAHMAN [facility] REHAB KNEE PAIN [id number] 03/04/2014 06:00:00 03/04/2014 10:10:00 DIS Outpatient SOSA GUSMAN MD [facility] LEFT KNEE CHONDROMALASIA [id number] 02/27/2014 11:49:00 02/27/2014 23:59:59 CLS Outpatient SOSA GUSMAN MD [facility] PREOP LEFT KNEE CHONDROMALASIA [id number] 02/10/2014 09:42:00 02/10/2014 17:00:00 DIS Outpatient JOSEE ESCOTO FACCDANIEL FACP CCDS [facility] CATH ANGINA SOB DIZZINESS [id number] 02/03/2014 09:43:00 02/03/2014 23:59:59 CLS Outpatient RASHEED RAHMAN [facility] RAD SCREENING [id number] 01/30/2014 08:46:00 01/30/2014 23:59:59 CLS Outpatient JAMIE LOVE MD [facility] RECTAL BLEEDING [id number] 01/29/2014 09:11:00 01/29/2014 23:59:59 CLS Outpatient JAMIE LOVE MD [facility] PREOP RECTAL BLEEDING [id number] 10/15/2013 08:45:00 10/31/2013 12:22:00 DIS Outpatient DINO TILLMAN [facility] REHAB B LE WEAKNESS;S/P R TKA;SEVERE L DJD [id number] 01/09/2013 11:24:00 01/09/2013 23:59:59 CLS Outpatient RASHEED RAHMAN [facility] RAD SCREENING [id number] 07/29/2018 10:52:00 Document Registration [id number] 03/17/2015 09:34:00 Document Registration [id number] 07/27/2014 13:00:00 Document Registration [id number] 01/15/2012 10:47:00 Document Registration [id number] 10/23/2011 05:44:00 Document Registration [id number] 10/20/2011 09:40:00 Document Registration [id number] 08/12/2011 21:58:00 Document Registration [id number] 05/12/2010 11:10:00 Document Registration
[2019-01-13 11:00] LABS: ALBUMIN 3.4 GM/DL (3.2-4.5); BILIRUBIN,TOTAL 0.5 MG/DL (0.1-1.0); CREATININE SERUM 1.02 MG/DL (0.60-1.30); POTASSIUM 3.9 MMOL/L (3.6-5.0); TOTAL PROTEIN 7.1 GM/DL (6.4-8.2)
--- NOTE | 2019-01-13 11:05 | Diagnostic Imaging Report ---
INDICATION: Coughing up blood. Patient also complains of shortness of air. Time of exam: 10:49 AM Correlation is made with prior chest from 07/19/2017. Heart size is stable. There appears to be some infiltrate in the right base medially. Otherwise, the lungs are clear. The pulmonary vascularity is normal. No effusion or pneumothorax is seen. IMPRESSION: Right basilar infiltrate. Dictated by: Dictated on workstation # [id number]
[2019-01-13 11:09] LABS: INR 1.1 (0.8-1.4); PROTHROMBIN TIME PATIENT 14.2 SEC (12.2-14.7)
[2019-01-13 11:12] LABS: ABG OXYGEN SATURATION 54 % (94-100); ABG PCO2 57 MMHG (35-45); ABG TCO2 29.8 MMOL/L (21.0-31.0)
[2019-01-13 11:13] LABS: ALLENS TEST YES-POS; INSPIRED O2 22; PATIENT TEMP 101.8; VENTILATOR NO
[2019-01-13 11:14] LABS: ABG PH 7.32 (7.37-7.43); ABG PO2 35 MMHG (79-93)
[2019-01-13 11:23] LABS: BAND NEUTROPHILS 3 %; BASOPHILS % (MANUAL) 0 %; EOSINOPHILS % (MANUAL) 0 %; LYMPHOCYTES % (MANUAL) 9 %; MONOCYTES % (MANUAL) 5 %; NEUTROPHILS % (MANUAL) 83 %
[2019-01-13 11:24] LABS: ANISOCYTOSIS SLIGHT
[2019-01-13] MEDS ORDERED: cefTRIAXone FOR IV USE 1,000 MG in WATER (STERILE) FOR INJECTION 10 ML IV ONE (11:45)
[2019-01-13] MEDS ORDERED: methylPREDNISolone 125 MG (Solu-MEDROL) VIAL IV STA (11:45)
[2019-01-13 12:05] LABS: BILIRUBIN,URINE NEGATIVE (NEGATIVE); CLARITY,URINE VERY CLOUDY; COLOR,URINE YELLOW; GLUCOSE, URINE (UA) NEGATIVE (NEGATIVE); KETONES,URINE NEGATIVE (NEGATIVE); LEUKOCYTE ESTERASE ,URINE 2+ (NEGATIVE); NITRITE,URINE NEGATIVE (NEGATIVE); PH,URINE 8 (5-9); PROTEIN,URINE NEGATIVE (NEGATIVE); UROBILINOGEN,URINE 1 MG/DL (NORMAL)
--- NOTE | 2019-01-13 12:15 | NUR ---
Temp re assessed at this time - 99.6
[2019-01-13 12:18] VITALS: BP 105/74
[2019-01-13 12:28] LABS: BACTERIA,URINE MODERATE /HPF
[2019-01-13 12:29] LABS: AMORPHOUS SEDIMENT,UR FEW AMOR PHOSPHATE /LPF
[2019-01-13 12:30] VITALS: BP 115/68
[2019-01-13 12:35] VITALS: BP 115/68
--- NOTE | 2019-01-13 13:00 | NUR ---
ELLIOT MILLERPAMIsmael admitted to room 423-1, with an admitting diagnosis of PNEUMONIA, on 01/13/19 from ER via W/C, accompanied by STAFF.ELLIOT GREENBERG introduced to surroundings, call light, bed controls, phone, TV, temperature control, lights, meal times, smoking policy, visitor policy, side rail policy, bathrooms and showers. Patient Rights given to patient in the handbook.ELLIOT GREENBERG verbalizes understanding that [facility] is not responsible for the loss or damage to any personal effects or valuables that are kept in the patients posession during their hospitalization. The following Patient Care Plans were discussed with the PT: Discharge Planning, PAIN CONTROL,IV THERAPY AND ANTIBIOTIC TX, and MOBILITY. ELLIOT GREENBERG verbalizes understanding of Interdisciplinary Patient Education. Patient and/or family were informed about the Rapid Response Team and its purpose.
[2019-01-13] MEDS ORDERED: AZITHROMYCIN 500 MG/NS 250 ML IVPB IV NR ×2 (13:02)
[2019-01-13] MEDS: NICOTINE 21 MG (NICODERM) PATCH TD SCH (13:13)
[2019-01-13] MEDS: NS IV 1000 ML 1,000 ML IV SCH (13:14)
[2019-01-13] MEDS ORDERED: TOPI100T11 PO (13:20)
[2019-01-13] MEDS ORDERED: BUSP15TA60 PO (13:20)
[2019-01-13] MEDS ORDERED: PRD10T PO (13:20)
[2019-01-13] MEDS ORDERED: MIRA50TA PO (13:20)
[2019-01-13] MEDS ORDERED: HYDR-700 PO (13:20)
[2019-01-13] MEDS ORDERED: TRAM50TA2 PO (13:20)
[2019-01-13] MEDS ORDERED: TIZA2TAB4 PO (13:20)
[2019-01-13] MEDS ORDERED: ASEN5TAB7 SL (13:20)
[2019-01-13] MEDS ORDERED: ESCI20TA45 PO (13:20)
[2019-01-13] MEDS ORDERED: OXYB10TA PO (13:20)
[2019-01-13] MEDS ORDERED: OMEP20CA13 PO (13:20)
[2019-01-13] MEDS ORDERED: GABA-490 PO (13:20)
[2019-01-13] MEDS ORDERED: AMLO10TA7 PO (13:20)
[2019-01-13] MEDS ORDERED: SPIR25TA5 PO (13:20)
[2019-01-13] MEDS ORDERED: TIOT18CA2 INH (13:32)
[2019-01-13] MEDS ORDERED: RT-ALBUINH IH (13:32)
[2019-01-13] MEDS ORDERED: ALBU2.5V4 NEB (13:32)
--- NOTE | 2019-01-13 13:33 | NUR ---
WENT OVER THE EXT MED HX WITH THE PATIENT AND SHE VERIFIED HOW SHE TAKES EACH MEDICATION. SHE STATES SHE IS NO LONGER TAKING THE SAPHRIS 5MG THAT WAS FILLED #30 01-06-19. SHE TAKES ASPIRIN 81MG DAILY OTC.
[2019-01-13] MEDS ORDERED: RT-ALBUTEROL/IPRATROPIUM 3 ML (DUONEB) VIAL INH PRN (14:00)
[2019-01-13 16:00] VITALS: BP 123/59
[2019-01-13] MEDS: RT-ALBUTEROL/IPRATROPIUM 3 ML (DUONEB) VIAL INH SCH ×2 (19:01→23:05)
[2019-01-13] MEDS: busPIRone 15 MG (BUSPAR) TABLET PO SCH (19:52)
[2019-01-13] MEDS: MONTELUKAST 10 MG (SINGULAIR) TAB PO SCH (19:52)
[2019-01-13] MEDS: rOPINIRole 0.25 MG (REQUIP) TAB PO SCH (19:52)
[2019-01-13 20:04] VITALS: BP 127/58
[2019-01-13] MEDS ORDERED: NON-FORMULARY MEDICATION 1 EA EA (Mirabegron (Myrbetriq) 50 MG) PO SCH (21:00)
[2019-01-14] VITALS (7 sets, daily range): BP systolic 114–144; BP diastolic 67–82
[2019-01-14] MEDS: RT-ALBUTEROL/IPRATROPIUM 3 ML (DUONEB) VIAL INH SCH ×6 (03:11→22:50)
[2019-01-14 05:01] LABS: BASOPHILS % (AUTO) 0 % (0-10); EOSINOPHILS % (AUTO) 0 % (0-10); HEMATOCRIT 39 % (35-52); HEMOGLOBIN 12.2 G/DL (11.5-16.0); LYMPHOCYTES # (AUTO) 0.9 X 10^3 (1.0-4.0); LYMPHOCYTES % (AUTO) 6 % (12-44); MEAN CORPUSCULAR HEMOGLOBIN 29 PG (25-34); MEAN CORPUSCULAR HGB CONC 31 G/DL (32-36); MEAN CORPUSCULAR VOLUME 92 FL (80-99); MEAN PLATELET VOLUME 10.8 FL (7.4-10.4); MONOCYTES # (AUTO) 0.8 X 10^3 (0.0-1.0); MONOCYTES % (AUTO) 5 % (0-12); NEUTROPHILS # (AUTO) 13.9 X 10^3 (1.8-7.8); NEUTROPHILS % (AUTO) 89 % (42-75); PLATELET COUNT 172 10^3/uL (130-400); RED CELL DISTRIBUTION WIDTH 14.7 % (10.0-14.5); WHITE BLOOD COUNT 15.6 10^3/uL (4.3-11.0)
[2019-01-14 05:20] LABS: ALANINE AMINOTRANSFERASE 12 U/L (0-55); ALBUMIN 3.3 GM/DL (3.2-4.5); ALKALINE PHOSPHATASE 79 U/L (40-136); BILIRUBIN,TOTAL 0.3 MG/DL (0.1-1.0); BUN/CREATININE RATIO 26; CALCIUM 9.5 MG/DL (8.5-10.1); CARBON DIOXIDE 22 MMOL/L (21-32); CHLORIDE 110 MMOL/L (98-107); GFR ESTIMATED > 60; GLUCOSE 171 MG/DL (70-105); POTASSIUM 3.9 MMOL/L (3.6-5.0); SODIUM 142 MMOL/L (135-145); TOTAL PROTEIN 6.2 GM/DL (6.4-8.2)
[2019-01-14] MEDS: toPIRamate 100 MG (TOPAMAX) TAB PO SCH (10:32)
[2019-01-14] MEDS: busPIRone 15 MG (BUSPAR) TABLET PO SCH ×2 (10:32→20:53)
[2019-01-14] MEDS: MELOXICAM 7.5 MG (MOBIC) TABLET PO SCH (10:32)
[2019-01-14] MEDS: AZITHROMYCIN 250 MG TAB (ZITHROMAX) PO SCH (10:32)
[2019-01-14] MEDS: NICOTINE 21 MG (NICODERM) PATCH TD SCH (10:32)
[2019-01-14] MEDS: ASPIRIN E.C. 81 MG (ECOTRIN) TAB PO SCH (10:32)
[2019-01-14] MEDS: PATCH REMOVAL TP SCH (10:33)
[2019-01-14] MEDS: cefTRIAXone 1,000 MG/SWFI 10 ML IV PUSH IV SCH ×2 (10:33)
[2019-01-14] MEDS: NS IV 1000 ML 1,000 ML IV SCH (14:48)
--- NOTE | 2019-01-14 20:04 | History & Physical ---
HPI History of Present Illness: 58 yo F with known COPD and oxygen dependence that presented to ER with increasing shortness of breath and coughing up blood. States that she follows with Dr Delacruz. Denies any fever or chills. States that she has been coughing up blood for the last 48hrs. She has had to increase her oxygen use to 4 LPM and her baseline is 2-3LPM. States that she has not missed any of her breathing treatment or inhalers. She has been wearing her oxygen all the time. No recent sick contacts. Source: patient, RN/MD Exam Limitations: no limitations Date seen by provider: Jan 14, 2019 Time Seen by Provider: 11:25 Attending Physician Nell Riggins MD [facility] Consult Date of Admission Jan 13, 2019 at 12:14 Home Medications Home Medications Reviewed patient Home Medication Reconciliation performed by pharmacy medication reconciliations medtronics technician and/or nursing. Patients Allergies have been reviewed. Allergies Coded Allergies: codeine (Verified Allergy, Severe, ANAPHYLAXIS BUT PT CAN TAKE MORPHINE, 01/13/19) sulfamethoxazole (Verified Allergy, Severe, 01/13/19) "STROKE-LIKE" SYMPTOMS trimethoprim (Verified Allergy, Severe, 01/13/19) "STROKE-LIKE" SYMPTOMS venom-honey bee (Verified Allergy, Unknown, 01/13/19) DPH-Kkvbqv-Pqbvjo Hx Patient Social History Alcohol Use: Denies Use Recreational Drug Use: Yes Drug of Choice: meth Smoking Status: Current Everyday Smoker Type Used: Cigarettes 2nd Hand Smoke Exposure: Yes Recent Foreign Travel: No Contact w/other who traveled: No Recent Hopitalizations: No Recent Infectious Disease Expo: No Immunizations Up To Date Tetanus Booster (TDap): Unknown Date of Pneumonia Vaccine: Feb 11, 2012 Date of Influenza Vaccine: Mar 12, 2018 Past Medical History COPD with oxygen dependence baseline 2-3 LPM HTN Substance Abuse (Meth) Depression Family Medical History Significant Family History: No Pertinent Family Hx Family History: Cardiovascular disease 19 MOTHER FH: hepatic cirrhosis 19 FATHER, Myocardial infarction 19 FATHER, Rectal cancer 19 MOTHER Review of Systems (CHC) Constitutional: No chills, No fever; malaise EENTM: no symptoms reported; No mouth pain, No nose congestion, No throat pain Respiratory: cough, dyspnea on exertion, hemoptysis, short of breath Cardiovascular: no symptoms reported; No chest pain, No edema, No palpitations Gastrointestinal: no symptoms reported; No abdominal pain, No constipation, No diarrhea, No nausea, No vomiting Genitourinary: no symptoms reported; No dysuria, No frequency, No hematuria : No Musculoskeletal: no symptoms reported; No back pain, No joint pain, No muscle pain Skin: no symptoms reported; No lesions, No rash Psychiatric/Neurological: No Symptoms Reported; Denies Headache, Denies Numbness, Denies Weakness Reviewed Test Results Reviewed Test Results Lab Laboratory Tests Test 01/13/19 10:36 01/13/19 10:57 01/13/19 11:50 01/14/19 04:45 Range/Units White Blood Count 18.9 H 15.6 H 4.3-11.0 10^3/uL Red Blood Count 4.35 4.22 L 4.35-5.85 10^6/uL Hemoglobin 12.3 12.2 11.5-16.0 G/DL Hematocrit 40 39 35-52 % Mean Corpuscular Volume 92 92 80-99 FL Mean Corpuscular Hemoglobin 28 29 25-34 PG Mean Corpuscular Hemoglobin Concent 31 L 31 L 32-36 G/DL Red Cell Distribution Width 15.1 H 14.7 H 10.0-14.5 % Platelet Count 194 172 130-400 10^3/uL Mean Platelet Volume 10.5 H 10.8 H 7.4-10.4 FL Neutrophils (%) (Auto) 84 H 89 H 42-75 % Lymphocytes (%) (Auto) 8 L 6 L 12-44 % Monocytes (%) (Auto) 8 5 0-12 % Eosinophils (%) (Auto) 0 0 0-10 % Basophils (%) (Auto) 0 0 0-10 % Neutrophils # (Auto) 15.9 H 13.9 H 1.8-7.8 X 10^3 Lymphocytes # (Auto) 1.4 0.9 L 1.0-4.0 X 10^3 Monocytes # (Auto) 1.5 H 0.8 0.0-1.0 X 10^3 Eosinophils # (Auto) 0.0 0.0 0.0-0.3 10^3/uL Basophils # (Auto) 0.0 0.0 0.0-0.1 10^3/uL Neutrophils % (Manual) 83 % Lymphocytes % (Manual) 9 % Monocytes % (Manual) 5 % Eosinophils % (Manual) 0 % Basophils % (Manual) 0 % Band Neutrophils 3 % Anisocytosis SLIGHT Prothrombin Time 14.2 12.2-14.7 SEC INR Comment 1.1 0.8-1.4 Activated Partial Thromboplast Time 32 24-35 SEC Sodium Level 139 142 135-145 MMOL/L Potassium Level 3.9 3.9 3.6-5.0 MMOL/L Chloride Level 105 110 H 98-107 MMOL/L Carbon Dioxide Level 25 22 21-32 MMOL/L Anion Gap 9 10 5-14 MMOL/L Blood Urea Nitrogen 20 H 21 H 7-18 MG/DL Creatinine 1.02 0.80 0.60-1.30 MG/DL Estimat Glomerular Filtration Rate 56 > 60 BUN/Creatinine Ratio 20 26 Glucose Level 140 H 171 H 70-105 MG/DL Lactic Acid Level 1.33 0.50-2.00 MMOL/L Calcium Level 9.0 9.5 8.5-10.1 MG/DL Corrected Calcium 9.5 10.1 8.5-10.1 MG/DL Total Bilirubin 0.5 0.3 0.1-1.0 MG/DL Aspartate Amino Transf (AST/SGOT) 11 7 5-34 U/L Alanine Aminotransferase (ALT/SGPT) 13 12 0-55 U/L Alkaline Phosphatase 81 79 40-136 U/L Total Protein 7.1 6.2 L 6.4-8.2 GM/DL Albumin 3.4 3.3 3.2-4.5 GM/DL Blood Gas Puncture Site R RAD Blood Gas Patient Temperature 101.8 Arterial Blood pH 7.32 *L 7.37-7.43 Arterial Blood Partial Pressure CO2 57 H 35-45 MMHG Arterial Blood Partial Pressure O2 35 *L 79-93 MMHG Arterial Blood HCO3 28 H 23-27 MMOL/L Arterial Blood Total CO2 29.8 21.0-31.0 MMOL/L Arterial Blood Oxygen Saturation 54 L 94-100 % Arterial Blood Base Excess 3.0 H -2.5-2.5 MMOL/L Deshaun Test YES-POS Blood Gas Ventilator Setting NO Blood Gas Inspired Oxygen 22 Urine Color YELLOW Urine Clarity VERY CLOUDY H Urine pH 8 5-9 Urine Specific Ruby 1.015 L 1.016-1.022 Urine Protein NEGATIVE NEGATIVE Urine Glucose (UA) NEGATIVE NEGATIVE Urine Ketones NEGATIVE NEGATIVE Urine Nitrite NEGATIVE NEGATIVE Urine Bilirubin NEGATIVE NEGATIVE Urine Urobilinogen 1 NORMAL MG/DL Urine Leukocyte Esterase 2+ H NEGATIVE Urine RBC (Auto) 3+ H NEGATIVE Urine RBC 10-25 H /HPF Urine WBC 2-5 /HPF Urine Squamous Epithelial Cells 5-10 /HPF Urine Crystals PRESENT H /LPF Urine Amorphous Sediment FEW KINZA PHOSPHATE H /LPF Urine Bacteria MODERATE H /HPF Urine Casts NONE /LPF Urine Mucus NEGATIVE /LPF Urine Culture Indicated CULTURE PENDING Physical Exam-([facility]) Physical Exam Vital Signs VS - Last 72 Hours, by Label 01/13/19 01/13/19 01/13/19 01/13/19 10:27 10:39 10:40 11:38 Temp 101.8 Pulse 98 Resp 22 B/P (MAP) 130/83 (99) Pulse Ox 94 94 93 O2 Delivery Nasal Cannula Nasal Cannula Nasal Cannula Nasal Cannula O2 Flow Rate 2.00 3.00 2.00 2.00 01/13/19 01/13/19 01/13/19 01/13/19 11:52 12:17 12:17 12:18 Temp 99.6 99.6 Pulse 94 94 Resp 22 22 B/P (MAP) 105/74 105/74 (84) Pulse Ox 96 96 96 O2 Delivery Nasal Cannula Nasal Cannula Nasal Cannula O2 Flow Rate 2.00 2.00 2.00 2.00 2.00 2.00 01/13/19 01/13/19 01/13/19 01/13/19 12:30 12:32 12:35 13:09 Temp 99.8 99.6 99.8 Pulse 96 94 96 82 Resp 18 22 18 B/P (MAP) 115/68 (84) 105/74 (84) 115/68 Pulse Ox 98 96 98 93 O2 Delivery Nasal Cannula Nasal Cannula Nasal Cannula O2 Flow Rate 3.00 2.00 3.00 FiO2 32 01/13/19 01/13/19 01/13/19 01/13/19 13:54 16:00 19:01 19:50 Temp 99.4 Pulse 95 Resp 22 B/P (MAP) 123/59 (80) Pulse Ox 93 95 92 O2 Delivery Nasal Cannula Nasal Cannula Nasal Cannula Nasal Cannula O2 Flow Rate 3.00 3.00 3.00 3.00 01/13/19 01/13/19 01/14/19 01/14/19 20:04 23:05 00:00 04:00 Temp 99.6 97.8 97.0 Pulse 100 95 85 Resp 22 21 23 B/P (MAP) 127/58 (81) 135/67 (89) 117/74 (88) Pulse Ox 95 92 95 95 O2 Delivery Nasal Cannula Nasal Cannula Nasal Cannula Nasal Cannula O2 Flow Rate 3.00 3.00 3.00 3.00 01/14/19 01/14/19 01/14/19 01/14/19 07:05 08:00 08:00 10:48 Temp 97.9 Pulse 97 Resp 22 B/P (MAP) 114/82 (93) Pulse Ox 91 100 92 O2 Delivery Nasal Cannula Nasal Cannula Nasal Cannula Nasal Cannula O2 Flow Rate 3.50 3.00 3.00 3.50 01/14/19 01/14/19 01/14/19 01/14/19 12:00 14:53 16:00 18:38 Temp 98.1 99.2 Pulse 89 91 Resp 20 18 B/P (MAP) 127/75 (92) 144/80 (101) Pulse Ox 96 92 94 87 O2 Delivery Nasal Cannula Nasal Cannula Nasal Cannula Nasal Cannula O2 Flow Rate 3.00 3.50 4.00 4.00 Capillary Refill : Less Than 3 Seconds General Appearance: mild distress (with minimal activity), obese HEENT: PERRL/EOMI Neck: non-tender, full range of motion, supple Respiratory: accessory muscle use, wheezing, expiration Cardiovascular: normal peripheral pulses, regular rate, rhythm, no edema, no murmur Gastrointestinal: normal bowel sounds, non tender, soft, no organomegaly Back: no CVA tenderness, no vertebral tenderness Extremities: normal range of motion, non-tender, normal inspection, no pedal edema, no calf tenderness, normal capillary refill Neurologic/Psychiatric: utility aircrewman II-XII nml as tested, no motor/sensory deficits, alert, normal mood/affect, oriented x 3 Skin: normal color, warm/dry Lymphatic: no adenopathy Assessment/Plan Assessment/Plan Admission Status: Inpatient Order (span 2 midnights) Reason for Inpatient Admission: increase oxygen requirement, IV antibiotics (1) Acute and chronic respiratory failure with hypoxia Status: Acute Assessment & Plan: - MAT protocol, antibiotics, steroids, cultures pending, consult Dr Delacruz as she is a mutual patient (2) Right lower lobe pneumonia Status: Acute Qualifiers: Qualified Codes: J18.1 - Lobar pneumonia, unspecified organism (3) Hemoptysis Status: Acute Assessment & Plan: - No episodes since admission (4) COPD exacerbation Status: Acute (5) HTN (hypertension) Status: Chronic Assessment & Plan: - controlled will monitor Qualifiers: Qualified Codes: I10 - Essential (primary) hypertension (6) BMI 50.0-59.9, adult Status: Chronic (7) DVT prophylaxis Status: Acute Assessment & Plan: - Lovenox Clinical Quality Measures DVT/VTE Risk/Contraindication: Risk Factor Score Per Nursin RFS Level Per Nursing on Admit: 4+=Very High Copy Copies To 1: ENLL CM MD Jan 14, 2019 20:04
[2019-01-14] MEDS: MONTELUKAST 10 MG (SINGULAIR) TAB PO SCH (20:53)
[2019-01-14] MEDS: rOPINIRole 0.25 MG (REQUIP) TAB PO SCH (20:53)
[2019-01-15] MEDS: RT-ALBUTEROL/IPRATROPIUM 3 ML (DUONEB) VIAL INH SCH ×3 (02:30→10:33)
[2019-01-15 06:05] LABS: BASOPHILS % (AUTO) 0 % (0-10); EOSINOPHILS % (AUTO) 0 % (0-10); HEMATOCRIT 37 % (35-52); HEMOGLOBIN 11.5 G/DL (11.5-16.0); LYMPHOCYTES % (AUTO) 17 % (12-44); MEAN CORPUSCULAR HGB CONC 31 G/DL (32-36); MEAN CORPUSCULAR VOLUME 92 FL (80-99); MEAN PLATELET VOLUME 10.4 FL (7.4-10.4); MONOCYTES # (AUTO) 0.9 X 10^3 (0.0-1.0); MONOCYTES % (AUTO) 8 % (0-12); NEUTROPHILS % (AUTO) 76 % (42-75); PLATELET COUNT 182 10^3/uL (130-400); RED CELL DISTRIBUTION WIDTH 15.2 % (10.0-14.5)
[2019-01-15 06:09] LABS: MEAN CORPUSCULAR HEMOGLOBIN 28 PG (25-34)
[2019-01-15 06:22] LABS: BUN/CREATININE RATIO 28; CARBON DIOXIDE 23 MMOL/L (21-32); CHLORIDE 110 MMOL/L (98-107); GFR ESTIMATED > 60; GLUCOSE 121 MG/DL (70-105); POTASSIUM 3.9 MMOL/L (3.6-5.0); SODIUM 143 MMOL/L (135-145)
[2019-01-15] MEDS ORDERED: predniSONE 20 MG TAB PO SCH (07:00)
[2019-01-15 07:52] VITALS: BP 107/71
[2019-01-15] MEDS: AZITHROMYCIN 250 MG TAB (ZITHROMAX) PO SCH (08:28)
[2019-01-15] MEDS: busPIRone 15 MG (BUSPAR) TABLET PO SCH (08:28)
[2019-01-15] MEDS: toPIRamate 100 MG (TOPAMAX) TAB PO SCH (08:29)
[2019-01-15] MEDS: ASPIRIN E.C. 81 MG (ECOTRIN) TAB PO SCH (08:29)
[2019-01-15] MEDS: NICOTINE 21 MG (NICODERM) PATCH TD SCH (08:29)
[2019-01-15] MEDS: MELOXICAM 7.5 MG (MOBIC) TABLET PO SCH (08:29)
[2019-01-15] MEDS: PATCH REMOVAL TP SCH (08:30)
[2019-01-15] MEDS: cefTRIAXone 1,000 MG/SWFI 10 ML IV PUSH IV SCH ×2 (08:30)
--- NOTE | 2019-01-15 11:19 | Pulmonary Consultation ---
History of Present Illness History of Present Illness Date of Consultation 01/15/19 11:14 Time Seen by Provider: 11:14 Date of Admission History of Present Illness 58yo with hx of severe oxygen dependent COPD presented to ED secondary to worsening SOB and coughing up blood. Pt denies F/NS/Chills. Hemoptysis started 48hours prior to admission. PT also had to increase her oxygen to 4 l/min from baseline of 2-3 liters/min. I am consulted for pulmonary management. Allergies and Home Medications Allergies Coded Allergies: codeine (Verified Allergy, Severe, ANAPHYLAXIS BUT PT CAN TAKE MORPHINE, 01/13/19) sulfamethoxazole (Verified Allergy, Severe, 01/13/19) "STROKE-LIKE" SYMPTOMS trimethoprim (Verified Allergy, Severe, 01/13/19) "STROKE-LIKE" SYMPTOMS venom-honey bee (Verified Allergy, Unknown, 01/13/19) Home Medications Albuterol Sulfate 1 Puff Puff, 2 PUFF IH Q6H PRN for SHORTNESS OF BREATH, (Reported) 1 PUFF = 90 MCG Albuterol Sulfate 2.5 Mg/3 Ml Vial.neb, 2.5 MG NEB BID, (Reported) Albuterol Sulfate 2.5 Mg/3 Ml Vial.neb, 2.5 MG NEB BID PRN for SHORTNESS OF BREATH, (Reported) Amlodipine Besylate 10 Mg Tablet, 10 MG PO DAILY, (Reported) Aspirin 81 Mg Tablet.dr, 81 MG PO DAILY, (Reported) Budesonide/Formoterol Fumarate 10.2 Gm Hfa.aer.ad, 2 PUFF INH BID, (Reported) Buspirone HCl 15 Mg Tablet, 15 MG PO BID, (Reported) Cyclobenzaprine HCl 10 Mg Tablet, 10 MG PO TID PRN for MUSCLE SPASMS, (Reported) Escitalopram Oxalate 20 Mg Tablet, 20 MG PO DAILY, (Reported) Estradiol 0.5 Mg Tablet, 0.5 MG PO HS, (Reported) Gabapentin 400 Mg Capsule, 400 MG PO TID, (Reported) Hydroxyzine HCl 25 Mg Tablet, 25 MG PO TID PRN for ANXIETY, (Reported) Meloxicam 7.5 Mg Tablet, 7.5 MG PO DAILY, (Reported) Mirabegron 50 Mg Tab.er.24h, 50 MG PO HS, (Reported) Montelukast Sodium 10 Mg Tablet, 10 MG PO HS, (Reported) Nitrofurantoin Macrocrystal 100 Mg Capsule, 100 MG PO HS, (Reported) Omeprazole 20 Mg Capsule.dr, 20 MG PO 1200, (Reported) Oxybutynin Chloride 10 Mg Tab.er.24, 10 MG PO DAILY, (Reported) Prednisone 10 Mg Tab, 10 MG PO DAILY, (Reported) Ranitidine HCl 150 Mg Tablet, 150 MG PO BID, (Reported) Ropinirole HCl 0.5 Mg Tablet, 0.5 MG PO HS, (Reported) Simvastatin 40 Mg Tablet, 40 MG PO HS, (Reported) Spironolactone 25 Mg Tablet, 25 MG PO DAILY, (Reported) Tiotropium Atkins 1 Inh Aerp, 1 CAP INH DAILY, (Reported) Tizanidine HCl 2 Mg Tablet, 2 MG PO TID PRN for MUSCLE SPASMS, (Reported) Topiramate 100 Mg Tablet, 100 MG PO DAILY, (Reported) Tramadol HCl 50 Mg Tablet, 50 MG PO BID, (Reported) Past Zrakyak-Telxli-Mvbthw Hx Past Med/Social Hx: Reviewed Nursing Past Med/Soc Hx Patient Social History Alcohol Use: Denies Use Recreational Drug Use: Yes Drug of Choice: meth Smoking Status: Current Everyday Smoker Type Used: Cigarettes 2nd Hand Smoke Exposure: Yes Recent Foreign Travel: No Contact w/Someone Who Travel: No Recent Infectious Disease Expo: No Recent Hopitalizations: No Physical Abuse: No Sexual Abuse: No Mistreated: No Fear: No Immunizations Up To Date Tetanus Booster (TDap): Unknown Date of Pneumonia Vaccine: Feb 11, 2012 Date of Influenza Vaccine: Mar 12, 2018 Seasonal Allergies Seasonal Allergies: No Past Medical History Surgeries: Yes (RIGHT TKR, LEFT KNEE SCOPE, HEART CATH, LEFT SHOULDER SCOPE, BILAT CTR) Gallbladder, Hysterectomy, Orthopedic Respiratory: Yes (02 2L ) Asthma, Sleep Apnea, COPD Cardiac: Yes (negative heart catheter 2013, negative stress test 2016) High Cholesterol, Hypertension Neurological: No Reproductive Disorders: No (HYTERECTOMY) Female 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 Sexually Transmitted Disease: No HIV/AIDS: No Genitourinary: Yes Bladder Infection, Neurogenic Bladder Gastrointestinal: Yes Gastroesophageal Reflux Musculoskeletal: Yes (BACK PROBLEMS) Degenerate Disk Disease, Arthritis, Chronic Back Pain Endocrine: No HEENT: Yes Cataract Loss of Vision: Denies Hearing Impairment: Denies Cancer: No Psychosocial: Yes Anxiety Integumentary: Yes Psoriasis Blood Disorders: No Adverse Reaction/Blood Tranf: No (N/A) Family Medical History Reviewed Nursing Family Hx Cardiovascular disease 19 MOTHER FH: hepatic cirrhosis 19 FATHER, Myocardial infarction 19 FATHER, Rectal cancer 19 MOTHER No Pertinent Family Hx Sepsis Event Evaluation Height, Weight, BMI Height: 5'3.00" Weight: 317lbs. 8.0oz. 144.292050xl; 56.2 BMI Method:Stated Exam Exam Vital Signs Date Time Temp Pulse Resp B/P (MAP) Pulse Ox O2 Delivery O2 Flow Rate FiO2 01/15/19 10:34 93 Nasal Cannula 3.00 01/15/19 08:00 Nasal Cannula 5.00 01/15/19 07:52 97.0 88 20 107/71 (83) 95 Nasal Cannula 5.00 01/15/19 07:22 94 Nasal Cannula 5.00 01/15/19 02:30 92 Nasal Cannula 5.00 01/14/19 23:34 97.4 87 16 120/77 (91) 93 Nasal Cannula 4.00 01/14/19 22:50 94 Nasal Cannula 5.00 01/14/19 20:00 Nasal Cannula 3.00 01/14/19 20:00 98.0 92 18 116/75 (89) 95 Nasal Cannula 4.00 01/14/19 18:38 87 Nasal Cannula 4.00 01/14/19 16:00 99.2 91 18 144/80 (101) 94 Nasal Cannula 4.00 01/14/19 14:53 92 Nasal Cannula 3.50 01/14/19 12:00 98.1 89 20 127/75 (92) 96 Nasal Cannula 3.00 I & O 01/15/19 07:00 Intake Total 1160 ml Output Total 2150 ml Balance -990 ml Height & Weight Height: 5'3.00" Weight: 317lbs. 8.0oz. 144.601496lz; 56.2 BMI Method:Stated General Appearance: WD/WN, Mild Distress, Obese HEENT: PERRL/EOMI, Pharyngeal Erythema Neck: Non Tender, Supple Respiratory: Decreased Breath Sounds, Expiration, Respiratory Distress (mild tachypnea), Wheezing Cardiovascular: No Murmur, Tachycardia Capillary Refill: Less Than 3 Seconds Gastrointestinal: normal bowel sounds, non tender, soft, no organomegaly Extremity: Normal Range of Motion, Non Tender, Pedal Edema (1+ to ankles bilaterally) Neurologic/Psychiatric: Alert, Oriented x3 Results Lab Laboratory Tests 01/14/19 04:45 01/15/19 05:45 KACIE GOMEZ DO Jan 15, 2019 11:19
--- NOTE | 2019-01-15 11:54 | Discharge Summary ---
Diagnosis/Chief Complaint Date of Admission Jan 13, 2019 at 12:14 Date of Discharge 01/15/2019 Admission Diagnosis Admission Diagnosis See problem list Discharge Diagnosis See below Problems/Diagnosis: (1) Acute and chronic respiratory failure with hypoxia Assessment & Plan: - MAT protocol, antibiotics, steroids, cultures pending, consult Dr Delacruz as she is a mutual patient 01/15: Dr Delacruz saw patient and will have f.u appt next week, continue antibiotics and steroids at home and scheduled breathing treatment Status: Acute (2) Right lower lobe pneumonia Qualifiers: Qualified Codes: J18.1 - Lobar pneumonia, unspecified organism Status: Acute (3) Hemoptysis Assessment & Plan: - No episodes since admission 01/15: Will f.u with Dr Delacruz, if continues possible bronch Status: Acute (4) COPD exacerbation Status: Acute (5) HTN (hypertension) Assessment & Plan: - controlled will monitor Qualifiers: Qualified Codes: I10 - Essential (primary) hypertension Status: Chronic (6) BMI 50.0-59.9, adult Status: Chronic (7) DVT prophylaxis Assessment & Plan: - Lovenox Status: Acute Chief Complaint/HPI Chief Complaint/HPI 58 yo F with known COPD and oxygen dependence that presented to ER with increasing shortness of breath and coughing up blood. States that she follows with Dr Delacruz. Denies any fever or chills. States that she has been coughing up blood for the last 48hrs. She has had to increase her oxygen use to 4 LPM and her baseline is 2-3LPM. States that she has not missed any of her breathing treatment or inhalers. She has been wearing her oxygen all the time. No recent sick contacts. Discharge Summary-Simple/Stand Consultations Dr Delacruz, Pulmonology and critical care Discharge Physical Examination Allergies: Coded Allergies: codeine (Verified Allergy, Severe, ANAPHYLAXIS BUT PT CAN TAKE MORPHINE, 01/13/19) sulfamethoxazole (Verified Allergy, Severe, 01/13/19) "STROKE-LIKE" SYMPTOMS trimethoprim (Verified Allergy, Severe, 01/13/19) "STROKE-LIKE" SYMPTOMS venom-honey bee (Verified Allergy, Unknown, 01/13/19) Vitals & I&Os Vital Sign - Last 12Hours Date Time Temp Pulse Resp B/P (MAP) Pulse Ox O2 Delivery O2 Flow Rate FiO2 01/15/19 10:34 93 Nasal Cannula 3.00 8/7/19 07:52 97.0 88 20 107/71 (83) 01/13/19 13:09 32 Intake and Output 01/15/19 00:00 Intake Total 1110 ml Output Total 1250 ml Balance -140 ml General Appearance: Alert, Oriented X3, Cooperative, No Acute Distress HEENT: Mucous Memb Moist/[place] Respiratory: Clear to Auscultation, Normal Air Movement Cardiovascular: Regular Rate, No Murmurs Abdominal: Normal Bowel Sounds, Soft, No Tenderness, No Masses Extremities: No Edema, No Tenderness/Swelling Skin: No Rashes, No Breakdown Neuro: Strength at 5/5 X4 Ext, Cranial Nerves 3-12 NL Psych/Mental Status: Mental Status NL, Mood NL Hospital Course Was the Problem List Reviewed?: Yes See final discharge diagnosis. Discussion & Recommendations 58 yo F with COPD and oxygen dependence that was admitted with COPD exacerbation from PNA. Patient was initially on 5-6 L oxygen on admission and she has a home oxygen requirement of 2-3 lpm. She was started on antibiotics for her PNA and steroids for COPD exacerbation. She was able to be titrated down to her home oxygen. She has not had any more episodes or coughing up blood since admission. She will be discharged today with close f.u with Dr Delacruz and her PCP. Discharge Condition at discharge stable Instructions to patient/family Please see electronic discharge instructions given to patient. Discharge Medications Reviewed and agree with Discharge Medication list on patient's Discharge Instruction sheet Clinical Quality Measures DVT/VTE Risk/Contraindication: Risk Factor Score Per Nursin RFS Level Per Nursing on Admit: 4+=Very High Copy Copies To 1: ARIAS GRAJEDA MD, HOLLY R MD Jan 15, 2019 11:54
[2019-01-15] MEDS ORDERED: CEFD300C3 PO (11:57)
[2019-01-15] MEDS ORDERED: AZIT250T12 PO (11:57)
--- NOTE | 2019-01-15 11:59 | Discharge Instructions ---
Discharge [facility] Reconcile Patient Problems Problems Reviewed?: Yes Discharge Medications New, Converted or Re-Newed RX: Transmitted to Pharmacy New Medications: Cefdinir (Cefdinir) 300 Mg Capsule 300 MG PO BID for 5 Days, #10 CAP Azithromycin (Azithromycin) 250 Mg Tablet 250 MG PO DAILY for 3 Days, #3 TAB Continued Medications: Albuterol Sulfate (Proair Hfa) 1 Puff Puff 2 PUFF IH Q6H PRN for SHORTNESS OF BREATH, INHALER 1 PUFF = 90 MCG Albuterol Sulfate (Albuterol Sulfate) 2.5 Mg/3 Ml Vial.neb 2.5 MG NEB BID, EA Albuterol Sulfate (Albuterol Sulfate) 2.5 Mg/3 Ml Vial.neb 2.5 MG NEB BID PRN for SHORTNESS OF BREATH, EA Amlodipine Besylate (Amlodipine Besylate) 10 Mg Tablet 10 MG PO DAILY, TAB Aspirin (Aspir 81) 81 Mg Tablet.dr 81 MG PO DAILY, TAB Budesonide/Formoterol Fumarate (Symbicort 160-4.5 Mcg Inhaler) 10.2 Gm Hfa.aer.ad 2 PUFF INH BID, INHALER Buspirone HCl (Buspirone HCl) 15 Mg Tablet 15 MG PO BID, TAB Cyclobenzaprine HCl (Cyclobenzaprine HCl) 10 Mg Tablet 10 MG PO TID PRN for MUSCLE SPASMS, TAB Escitalopram Oxalate (Escitalopram Oxalate) 20 Mg Tablet 20 MG PO DAILY, TAB Estradiol (Estradiol Tablet) 0.5 Mg Tablet 0.5 MG PO HS, TAB Gabapentin (Gabapentin) 400 Mg Capsule 400 MG PO TID, CAP Hydroxyzine HCl (Hydroxyzine HCl) 25 Mg Tablet 25 MG PO TID PRN for ANXIETY, TAB Meloxicam (Meloxicam) 7.5 Mg Tablet 7.5 MG PO DAILY, TAB Mirabegron (Myrbetriq) 50 Mg Tab.er.24h 50 MG PO HS, TAB Montelukast Sodium (Montelukast Sodium) 10 Mg Tablet 10 MG PO HS, TAB Prednisone (Prednisone) 10 Mg Tab 10 MG PO DAILY, TAB Ranitidine HCl (Ranitidine HCl) 150 Mg Tablet 150 MG PO BID, TAB Ropinirole HCl (Ropinirole HCl) 0.5 Mg Tablet 0.5 MG PO HS, TAB Simvastatin (Simvastatin) 40 Mg Tablet 40 MG PO HS, TAB Spironolactone (Spironolactone) 25 Mg Tablet 25 MG PO DAILY, TAB Tiotropium [place] (Spiriva) 1 Inh Aerp 1 CAP INH DAILY, INHALER Tizanidine HCl (Tizanidine HCl) 2 Mg Tablet 2 MG PO TID PRN for MUSCLE SPASMS, TAB Topiramate (Topiramate) 100 Mg Tablet 100 MG PO DAILY, TAB Tramadol HCl (Tramadol HCl) 50 Mg Tablet 50 MG PO BID, TAB Discontinued Medications: Nitrofurantoin Macrocrystal (Nitrofurantoin) 100 Mg Capsule 100 MG PO HS, CAP Omeprazole (Omeprazole) 20 Mg Capsule.dr 20 MG PO 1200, CAP Oxybutynin Chloride (Oxybutynin Chloride ER) 10 Mg Tab.er.24 10 MG PO DAILY, TAB Patient Instructions Goal/Follow Up Appt: - F.u with Dr Delacruz next week - F.u with PCP in 1-2 weeks Patient Instructions: - Make sure to complete your antibiotics [facility] to [facility]: - Increasing shortness of breath Activity & Diet Discharge Diet: Cardiac Diet Activity as Tolerated: Yes Copy Copies To 1: YAMILET CM MD Jan 15, 2019 11:59
[2019-01-15 12:48] VITALS: BP 107/71
== END 2019-01-15 12:48 | disposition home or self-care (01) | DRG 193 ==
LOC: EDUNIT# 10:02 → ER 10:03 → 4TH 12:14
PROVIDERS: ADMIT Family Medicine; ATTEND Family Medicine
DX: J18.1 Lobar pneumonia, unspecified organism (principal); J44.0 Chronic obstructive pulmonary disease with (acute) lower respiratory infection; J96.21 Acute and chronic respiratory failure with hypoxia; R04.2 Hemoptysis; Z68.43 Body mass index [BMI] 50.0-59.9, adult; F17.210 Nicotine dependence, cigarettes, uncomplicated; I10 Essential (primary) hypertension; G47.30 Sleep apnea, unspecified; E78.00 Pure hypercholesterolemia, unspecified; N31.9 Neuromuscular dysfunction of bladder, unspecified; K21.9 Gastro-esophageal reflux disease without esophagitis; M19.91 Primary osteoarthritis, unspecified site; M54.9 Dorsalgia, unspecified; F41.9 Anxiety disorder, unspecified; E66.9 Obesity, unspecified; L40.9 Psoriasis, unspecified; Z99.81 Dependence on supplemental oxygen; Z96.651 Presence of right artificial knee joint
CPT/HCPCS: 36415; 71045; 80048; 80053; 81000; 82805; 83605; 85007; 85025; 85027; 85610; 85730; 87040; 87070; 87077; 87088; 87205; 94640; 94760

== ENCOUNTER → 2019-02-18 | Outpatient (CLI) | payer MEDICARE, MEDICAID ==
[~2019-02-18] MED LIST changes: +ALBU2.5V4 NEB; +AMLO10TA7 PO; +ASEN5TAB7 SL; +AZIT250T12 PO; +BUSP15TA60 PO; +CATHETER FLUSH 10 ML SYR IV PRN; +CEFD300C3 PO; +ESCI20TA45 PO; +GABA-490 PO; +HOLD METFORMIN - RECEIVED CONTRAST 20 ML VIAL IV SCH; +HYDR-700 PO; +IOHEXOL 350 MG/ML 100 ML (OMNIPAQUE 350) VIAL IV ONE; +MIRA50TA PO; +OMEP20CA13 PO; +OXYB10TA PO; +PRD10T PO; +RT-ALBUINH IH; +SPIR25TA5 PO; +TIOT18CA2 INH; +TIZA2TAB4 PO; +TOPI100T11 PO; +TRAM50TA2 PO
--- NOTE | 2019-02-18 09:51 | Diagnostic Imaging Report ---
PROCEDURE: CT neck soft tissue with contrast. TECHNIQUE: Multiple contiguous axial images were obtained through the neck after the administration of contrast. Auto Exposure Controls were utilized during the CT exam to meet ALARA standards for radiation dose reduction. INDICATION: Unilateral throat pain. Choking. Symptoms for one month. COMPARISON: Barium swallow esophagram on 11/28/2018. Findings: The visualized intracranial contents demonstrate no evidence of pathologic intracranial enhancement or intracranial mass effect. Visualized orbital contents are unremarkable. The visualized paranasal sinuses are clear. The mastoids and middle ears are clear. The posterior nasopharynx and oropharynx demonstrate appropriate symmetry. There is no displacement of the parapharyngeal fat planes. There is no abnormal process evident within the prevertebral or retropharyngeal space. There is no evidence of abnormal thickening of the epiglottis or aryepiglottic folds. The vocal folds appear symmetric. The parotid, submandibular and thyroid gland are unremarkable. No pathologically enlarged cervical lymph nodes are evident. No focal inflammatory changes are demonstrated. No soft tissue mass or fluid collection demonstrated. The vascular structures the neck demonstrate no evidence of high-grade stenosis on this nondedicated exam. The visualized lung apices are clear. There are mild degenerative features within the cervical spine without CT evidence of an acute or suspicious osseous abnormality. Cervical spine alignment appears within normal limits. Impression: 1. Appropriate symmetry of the aerodigestive tract. 2. No evidence of pathologic adenopathy. 3. No soft tissue mass, fluid collection or focal inflammatory changes demonstrated. Dictated by: Dictated on workstation # [id number]
== END ==
LOC: RAD 08:22
PROVIDERS: ATTEND Otolaryngology Otolaryngology/Facial Plastic Surgery
DX: R07.0 Pain in throat (principal); R09.89 Other specified symptoms and signs involving the circulatory and respiratory systems
CPT/HCPCS: 70491

== ENCOUNTER 2019-03-11 05:29 | Outpatient (CLI) | payer MEDICARE, MEDICAID ==
[~2019-03-11] VITALS: Ht 160 cm; Wt 145.0 kg
[~2019-03-11 05:29] MED LIST changes: -CATHETER FLUSH 10 ML SYR IV PRN; -HOLD METFORMIN - RECEIVED CONTRAST 20 ML VIAL IV SCH; -IOHEXOL 350 MG/ML 100 ML (OMNIPAQUE 350) VIAL IV ONE
[2019-03-18] MEDS ORDERED: PANT40TA2 PO (08:46)
== END 2019-03-11 10:13 | disposition home or self-care (01) ==
LOC: PREOP 05:29
PROVIDERS: ATTEND Surgery
DX: Z01.818 Encounter for other preprocedural examination (principal)

== ENCOUNTER 2019-03-18 05:56 | Day surgery (SDC) | payer MEDICARE, MEDICAID ==
[~2019-03-18] VITALS: Ht 160 cm; Wt 145.0 kg
[2019-03-18] MEDS ORDERED: LACTATED RINGERS 1,000 ML IV STA (07:06)
[2019-03-18] MEDS ORDERED: LACTATED RINGERS 1,000 ML IV ONE (07:09)
[2019-03-18] MEDS ORDERED: HURRICAINE EXT TUBE (BENZOCAINE) XX PRN (07:15)
[2019-03-18 07:17] VITALS: BP 139/111
[2019-03-18] MEDS ORDERED: KETAMINE/NaCl 50 MG/5 ML SYRINGE ONE (07:18)
[2019-03-18] MEDS ORDERED: MIDAZOLAM 2 MG/2 ML (VERSED) VIAL ONE (07:18)
[2019-03-18] MEDS ORDERED: PROPOFOL INJECTION 50 ML IV ONE (07:19)
[2019-03-18] MEDS ORDERED: LACTATED RINGERS 1,000 ML IV PRN (07:30)
[2019-03-18] MEDS ORDERED: CATHETER FLUSH 10 ML SYR IV PRN (07:30)
[2019-03-18] MEDS ORDERED: RT-ALBUTEROL SULF 2.5 MG/3 ML PRE-MIX VIAL INH ONE (07:30)
[2019-03-18] MEDS ORDERED: RT-ALBUTEROL SULF 2.5 MG/3 ML PRE-MIX VIAL ONE (07:33)
[2019-03-18] MEDS ORDERED: HURRICAINE EXT TUBE (BENZOCAINE) ONE (08:01)
--- NOTE | 2019-03-18 08:01 | Progress Note-Pre Operative ---
Pre-Operative Progress Note H&P Reviewed The H&P was reviewed, patient examined and no changes noted. Date Seen by Provider: Mar 18, 2019 Time Seen by Provider: 08: Date H&P Reviewed: Mar 18, 2019 Time H&P Reviewed: 08: Pre-Operative Diagnosis: epigastric abd pain, dysphagia, screening colon CESAR PATTON DO Mar 18, 2019 08:01
[2019-03-18 08:30] VITALS: BP 135/64
[2019-03-18 08:35] VITALS: BP 138/62
--- NOTE | 2019-03-18 08:41 | Progress Note-Post Operative ---
Post-Operative Progess Note Surgeon (s)/Upper Doubler (s) Surgeon CESAR PATTON DO Upper Doubler: na Pre-Operative Diagnosis epigastric abd pain, dysphagia, screening colon Post-Operative Diagnosis Gastritis, small hiatal hernia, esophagitis Procedure & Operative Findings Date of Procedure 03/18/19 Procedure Performed/Findings EGD, attempted colonoscopy but poor prep Anesthesia Type per pattern filer Estimated Blood Loss Estimated blood loss (mL): none Specimens/Packing Specimens Removed antrum, ge CESAR PATTON DO Mar 18, 2019 08:41
[2019-03-18] MEDS ORDERED: PANT40TA2 PO (08:46)
--- NOTE | 2019-03-18 08:48 | Discharge Inst-Simple/Standard ---
Discharge Inst-Standard Discharge Medications New, Converted or Re-Newed RX: Transmitted to Pharmacy Patient Instructions/Follow Up Plan of Care/Instructions/FU: Clear liquid diet today and nothing to drink after midnight. Go-lytely prep today, 8 oz every 10 min till gone Activity as Tolerated: Yes Discharge Diet: Regular Diet CESAR PATTON DO Mar 18, 2019 08:48
[2019-03-18 08:50] VITALS: BP 105/84
--- NOTE | 2019-03-18 09:00 | NUR ---
[facility] CALLED FOR GOLYTELY PER DR. PATTON, PATIENT INSTRUCED TO DRINK IT TODAY, RETURN AT 7 A.M. IN THE MORNING FOR REPEAT COLONOSCOPY.
[2019-03-18 09:16] VITALS: BP 105/84
--- NOTE | 2019-03-18 10:48 | Anesthesia-General Post-Op ---
MAC Patient Condition Mental Status/LOC: Same as Preop Cardiovascular: Satisfactory Nausea/Vomiting: Absent Respiratory: Satisfactory Pain: Controlled Complications: Absent Post Op Complications Complications None Follow Up Care/Instructions Patient Instructions None needed. Anesthesiology Discharge Order Discharge Order Patient is doing well, no complaints, stable vital signs, no apparent adverse anesthesia problems. No complications reported per nursing. GENEVIEVE LOZANO CRNA Mar 18, 2019 10:47
--- NOTE | 2019-03-18 15:11 | OPERATIVE REPORT ---
DATE OF SERVICE: 03/18/2019 PREOPERATIVE DIAGNOSES: Epigastric abdominal pain, gastroesophageal reflux disease and screening colonoscopy. POSTOPERATIVE DIAGNOSES: Slight gastritis, small hiatal hernia, esophagitis, poor prep. PROCEDURE: EGD with biopsies, attempted colonoscopy, poor prep. SURGEON: Cesar Altman DO ANESTHESIA: Per OPTICAL ADVISOR. ESTIMATED BLOOD LOSS: None. COMPLICATIONS: None. INDICATIONS: The patient is a 59-year-old female with epigastric abdominal pain, dysphagia and need for screening colonoscopy. She understands risks and benefits of procedure and wished to proceed with procedure. Consent was signed in the chart. DESCRIPTION OF PROCEDURE: The patient was taken to the endoscopy suite, placed in left lateral recumbent position. Timeout was performed. Scope was inserted in the mouth, down the esophagus, stomach and into the duodenum without difficulty. There were no polyps, masses or ulcerations in the duodenum. Scope was slowly retracted back to stomach where erythematous changes consistent with gastritis was present. Biopsy of the antrum was obtained. Scope was retroflexed noting a small hiatal hernia, no other pathology. Scope was returned to its normal position, slowly withdrawn to the distal esophagus, which had consistency of esophagitis. Biopsies were obtained. Scope was then slowly retracted back to completely removed noting no other pathology. Digital rectal exam was performed. There were no palpable polyps, masses or ulcerations. Scope was inserted in the rectum, a lot of stool was still present. Scope was continued to be advanced through the rectum and into the sigmoid with still a large amount of stool making visualization poor. Therefore, the scope was then slowly retracted back to completely removed noting no other pathology. The patient tolerated the procedure wells without any complications. She will repeat prep today and add on for tomorrow colonoscopy. Further recommendations are pending. We will also start her on Protonix 40 mg daily. We will stop ranitidine. Job ID: [id number] DocumentID: [id number] Dictated Date: 03/18/2019 08:51:10 Scaler Date: 03/18/2019 15:09:49 Dictated By: CESAR ALTMAN DO
== END 2019-03-18 09:15 | disposition home or self-care (01) ==
LOC: ENDO 05:56
PROVIDERS: ATTEND Surgery
DX: Z12.11 Encounter for screening for malignant neoplasm of colon (principal); K21.0 Gastro-esophageal reflux disease with esophagitis; K29.50 Unspecified chronic gastritis without bleeding; K44.9 Diaphragmatic hernia without obstruction or gangrene; J44.9 Chronic obstructive pulmonary disease, unspecified; I10 Essential (primary) hypertension; E78.5 Hyperlipidemia, unspecified; F17.210 Nicotine dependence, cigarettes, uncomplicated; G47.33 Obstructive sleep apnea (adult) (pediatric); I65.23 Occlusion and stenosis of bilateral carotid arteries; F32.9 Major depressive disorder, single episode, unspecified; E66.01 Morbid (severe) obesity due to excess calories; Z68.43 Body mass index [BMI] 50.0-59.9, adult; N31.2 Flaccid neuropathic bladder, not elsewhere classified; Z88.5 Allergy status to narcotic agent; Z88.1 Allergy status to other antibiotic agents; Z91.030 Bee allergy status; Z88.8 Allergy status to other drugs, medicaments and biological substances; Z79.51 Long term (current) use of inhaled steroids; Z79.891 Long term (current) use of opiate analgesic; Z79.899 Other long term (current) drug therapy; Z90.710 Acquired absence of both cervix and uterus; Z99.81 Dependence on supplemental oxygen; Z90.722 Acquired absence of ovaries, bilateral; Z96.651 Presence of right artificial knee joint
CPT/HCPCS: 94640

== ENCOUNTER 2019-04-11 12:50 | Outpatient (CLI) | payer MEDICARE, MEDICAID ==
[~2019-04-11] VITALS: Ht 160 cm; Wt 145.0 kg
[~2019-04-11 12:50] MED LIST changes: +FLUO20CA25 PO; -FLUO20CA45 PO; +METO-387 PO; -MTP25TSR PO; -OMEP-280 PO; +OMEP20CA13 PO; +OXYB10TA PO; -OXYB10TA2 PO; -SIMV40TA25 PO; +TRAM50TA2 PO; -TRM50T PO
== END 2019-04-11 13:14 | disposition home or self-care (01) ==
LOC: PREOP 12:50
PROVIDERS: ATTEND Surgery
DX: Z01.818 Encounter for other preprocedural examination (principal)

== ENCOUNTER → 2019-04-11 | Outpatient (CLI) | payer MEDICARE, MEDICAID ==
[~2019-04-11] MED LIST changes: -FLUO20CA25 PO; +FLUO20CA45 PO; -METO-387 PO; +MTP25TSR PO; +OMEP-280 PO; -OMEP20CA13 PO; -OXYB10TA PO; +OXYB10TA2 PO; +PANT40TA2 PO; +SIMV40TA25 PO; -TRAM50TA2 PO; +TRM50T PO
--- NOTE | 2019-04-11 09:27 | Diagnostic Imaging Report ---
CT CHEST WO TECHNIQUE: Multiple contiguous axial images were obtained through the chest without the use of intravenous contrast. All CT scans use one or more of the following dose optimizing techniques: automated exposure control, MA and/or KvP adjustment based on a patient size and exam type, or iterative reconstruction. INDICATION: Follow-up pulmonary nodule. COMPARISON: CT chest of 10/21/2018. FINDINGS: Lungs and airway: No endoluminal nodule within the trachea. Severe centrilobular emphysema is present. No pulmonary mass or consolidation. Scattered bilateral pulmonary nodules are unchanged. The largest include a 5 mm left upper lobe nodule (image 55, series 4) and a right middle lobe pleural 8 mm nodule (image 34, series 4). Scattered calcified granulomas are unchanged. There is a new cluster of small nodules in the left lower lobe with the largest measuring up to 9 mm (image 83, series 4). Pleura: No pleural effusion or pneumothorax. Heart and mediastinum: No mediastinal, hilar or juxtaphrenic lymphadenopathy. Heart is normal in size without pericardial effusion. Calcified plaques in the coronary arteries are unchanged. Normal caliber thoracic aorta. Thyroid is normal. No supraclavicular or axillary lymphadenopathy. Upper abdomen: No concerning abnormality in upper abdomen. Musculoskeletal: No lytic or blastic skeletal lesions. However, since prior examination, there has been development of a superior endplate compression fracture of T4 with approximately 25% height loss anteriorly. There is no fracture of the middle column or retropulsion of the posterior endplates. IMPRESSION: 1. New cluster of micronodules within the left lower lobe are highly likely infectious in etiology. Given patient is at high risk for lung cancer, an additional follow-up CT chest without contrast in three to six months is advised to ensure resolution. 2. New since prior CT October 2018, but otherwise age-indeterminate, is superior endplate compression fracture of T4 with approximately 25% height loss. Dictated by: Dictated on workstation # [id number]
== END ==
LOC: RAD 07:35
PROVIDERS: ATTEND Nurse Practitioner Family
DX: M48.54XA Collapsed vertebra, not elsewhere classified, thoracic region, initial encounter for fracture (principal); M51.34 Other intervertebral disc degeneration, thoracic region; J44.9 Chronic obstructive pulmonary disease, unspecified; R91.8 Other nonspecific abnormal finding of lung field; Z72.0 Tobacco use
CPT/HCPCS: 71250

== ENCOUNTER → 2019-05-12 | Outpatient (CLI) | payer MEDICARE, MEDICAID | LOC: WOUNDCARE 07:58 | PROVIDERS: ATTEND Surgery | DX: I87.323 Chronic venous hypertension (idiopathic) with inflammation of bilateral lower extremity (principal); E66.01 Morbid (severe) obesity due to excess calories; T65.222A Toxic effect of tobacco cigarettes, intentional self-harm, initial encounter; F17.218 Nicotine dependence, cigarettes, with other nicotine-induced disorders | CPT/HCPCS: 99213 ==

== ENCOUNTER 2019-07-01 05:36 | Outpatient (CLI) | payer MEDICARE, MEDICAID ==
[~2019-07-01] VITALS: Ht 160 cm; Wt 124.5 kg
[~2019-07-01 05:36] MED LIST changes: -FLUO20CA25 PO; +FLUO20CA45 PO; -METO-387 PO; +MTP25TSR PO; +OMEP-280 PO; -OMEP20CA13 PO; -OXYB10TA PO; +OXYB10TA2 PO; +SIMV40TA25 PO; -TRAM50TA2 PO; +TRM50T PO
== END 2019-07-01 13:10 | disposition home or self-care (01) ==
LOC: PREOP 05:36
PROVIDERS: ATTEND Surgery
DX: Z01.818 Encounter for other preprocedural examination (principal)

== ENCOUNTER 2019-07-08 08:31 | Day surgery (SDC) | payer MEDICARE, MEDICAID ==
[~2019-07-08] VITALS: Ht 160 cm; Wt 124.5 kg
[2019-07-08] MEDS ORDERED: LACTATED RINGERS 1,000 ML IV ONE (08:38)
[2019-07-08 08:50] VITALS: BP 149/85
--- NOTE | 2019-07-08 08:52 | Progress Note-Pre Operative ---
Pre-Operative Progress Note H&P Reviewed The H&P was reviewed, patient examined and no changes noted. Date Seen by Provider: Jul 08, 2019 Time Seen by Provider: 08:52 Date H&P Reviewed: Jul 08, 2019 Time H&P Reviewed: 08:52 Pre-Operative Diagnosis: chronic constipation, lower abdominal pain CESAR PATTON DO Jul 08, 2019 08:52
[2019-07-08] MEDS ORDERED: LACTATED RINGERS 1,000 ML IV STA (08:54)
[2019-07-08] MEDS ORDERED: PROPOFOL INJECTION 50 ML IV ONE (09:15)
[2019-07-08] MEDS ORDERED: MIDAZOLAM 2 MG/2 ML (VERSED) VIAL ONE (09:15)
[2019-07-08] MEDS ORDERED: proPOfol 200 MG/20 ML (DIPRIVAN) VIAL IV ONE (09:41)
[2019-07-08 10:05] VITALS: BP 117/62
--- NOTE | 2019-07-08 10:07 | Progress Note-Post Operative ---
Post-Operative Progess Note Surgeon (s)/Irs Agent (s) Surgeon CESAR PATTON DO Irs Agent: None Pre-Operative Diagnosis chronic constipation, lower abdominal pain Post-Operative Diagnosis Lipoma of ascending colon, poor prep Procedure & Operative Findings Date of Procedure 07/08/19 Procedure Performed/Findings Colonoscopy Anesthesia Type per shiftman Estimated Blood Loss Estimated blood loss (mL): None Specimens/Packing Specimens Removed None CESAR PATTON DO Jul 08, 2019 10:07
--- NOTE | 2019-07-08 10:08 | Discharge Inst-Simple/Standard ---
Discharge Inst-Standard Patient Instructions/Follow Up Plan of Care/Instructions/FU: 2 weeks renee Activity as Tolerated: Yes Discharge Diet: Regular Diet CESAR PATTON DO Jul 08, 2019 10:08
[2019-07-08 10:10] VITALS: BP_SYST 121; BP_SYST 132; BP_DIAS 58; BP_DIAS 72
[2019-07-08 10:40] VITALS: BP 153/70
[2019-07-08 10:47] VITALS: BP 153/70
--- NOTE | 2019-07-08 13:52 | OPERATIVE REPORT ---
DATE OF SERVICE: 07/08/2019 PREOPERATIVE DIAGNOSES: Chronic constipation and lower abdominal pain. POSTOPERATIVE DIAGNOSIS: Lipoma of the ascending colon, poor prep. PROCEDURE: Colonoscopy. SURGEON: Cesar Altman DO ANESTHESIA: Per YARN EXAMINER. ESTIMATED BLOOD LOSS: None. COMPLICATIONS: None. INDICATIONS: The patient is a 59-year-old female with chronic constipation and lower abdominal pain. She was discussed risks and benefits of having procedure performed. She understands risks and benefits and wishes to proceed. Consent was signed in the chart. DESCRIPTION OF PROCEDURE: The patient was taken to the endoscopy suite, placed in left lateral recumbent position. Timeout was performed. Digital rectal exam was performed. There were no palpable polyps, masses or ulcerations. Scope was inserted in the rectum, advanced all the way to cecum with minimal to moderate difficulty due to patient having poor prep. Lots of irrigation and suction was continued to be utilized. The scope was continued to be slowly retracted back once I had reached the cecum and continued to irrigate and suction trying to visualize the best of the mucosa as possible. There were no polyps, masses or ulcerations. No gross pathology noted in the cecum, ascending, transverse, descending and sigmoid colon. The scope was continued to be slowly retracted back into the rectum with no other gross pathology noted. Scope was inserted and retracted at multiple times, noting no other pathology. The scope was then slowly retracted until completely removed. The patient tolerated procedure well without any complications. She was taken to recovery room in stable condition. RECOMMENDATIONS: The patient with no large gross pathology noted, but due to the poor prep, would recommend repeat colonoscopy in one year. Any issues before that be seen at that time. Job ID: [id number] DocumentID: [id number] Dictated Date: 07/08/2019 10:13:47 Polysomnographic Tech Date: 07/08/2019 13:51:51 Dictated By: CESAR ALTMAN DO
== END 2019-07-08 10:45 | disposition home or self-care (01) ==
LOC: ENDO 08:31
PROVIDERS: ATTEND Surgery
DX: D17.79 Benign lipomatous neoplasm of other sites (principal); K59.09 Other constipation; K21.9 Gastro-esophageal reflux disease without esophagitis; I10 Essential (primary) hypertension; I65.23 Occlusion and stenosis of bilateral carotid arteries; E78.5 Hyperlipidemia, unspecified; J44.9 Chronic obstructive pulmonary disease, unspecified; G47.50 Parasomnia, unspecified; E66.01 Morbid (severe) obesity due to excess calories; F17.210 Nicotine dependence, cigarettes, uncomplicated; F41.9 Anxiety disorder, unspecified; Z88.5 Allergy status to narcotic agent; Z88.2 Allergy status to sulfonamides; Z88.1 Allergy status to other antibiotic agents; Z91.030 Bee allergy status; Z99.89 Dependence on other enabling machines and devices; Z68.42 Body mass index [BMI] 45.0-49.9, adult; Z79.899 Other long term (current) drug therapy; Z90.710 Acquired absence of both cervix and uterus; Z90.89 Acquired absence of other organs; Z83.3 Family history of diabetes mellitus; Z82.49 Family history of ischemic heart disease and other diseases of the circulatory system

== ENCOUNTER 2019-08-19 10:16 | Outpatient (CLI) | payer OTHER, MEDICAID ==
[~2019-08-19] VITALS: Ht 160 cm; Wt 137.0 kg
[~2019-08-19 10:16] MED LIST changes: +ACHYD1T PO; -FLUO20CA45 PO; +FLUO20CA46 PO; -HYDR-3820 PO; -MONT10TA24 PO; +MONT10TA26 PO; -OMEP-280 PO; +OMEP20CA18 PO; +ONDA-105 PO; -ONDA4TAB10 PO; -OXYB10TA2 PO; +OXYB10TA29 PO; +ROPI0.5T4 PO
== END 2019-08-19 10:55 | disposition home or self-care (01) ==
LOC: PREOP 10:16
PROVIDERS: ATTEND Urology
DX: Z01.818 Encounter for other preprocedural examination (principal)

== ENCOUNTER 2019-08-26 05:57 | Day surgery (SDC) | payer OTHER, MEDICAID ==
[2019-08-26] VITALS (9 sets, daily range): BP systolic 109–163; BP diastolic 55–77
[~2019-08-26] VITALS: Ht 160 cm; Wt 137.0 kg
[2019-08-26] MEDS ORDERED: RT-ALBUTEROL SULF 2.5 MG/3 ML PRE-MIX VIAL INH ONE (06:30)
[2019-08-26] MEDS ORDERED: RT-ALBUTEROL SULF 2.5 MG/3 ML PRE-MIX VIAL ONE (06:38)
[2019-08-26] MEDS ORDERED: LACTATED RINGERS 1,000 ML IV PRN (06:53)
[2019-08-26] MEDS ORDERED: cefTRIAXone FOR IV USE 1,000 MG in WATER (STERILE) FOR INJECTION 10 ML IV ONE (07:00)
[2019-08-26] MEDS ORDERED: SEVOFLURANE (ULTANE) 15 ML INHAL SOLN ONE ×2 (07:06→11:03)
[2019-08-26] MEDS ORDERED: proPOfol 200 MG/20 ML (DIPRIVAN) VIAL IV ONE (07:06)
[2019-08-26] MEDS ORDERED: MIDAZOLAM 2 MG/2 ML (VERSED) VIAL ONE (07:06)
[2019-08-26] MEDS ORDERED: LIDOCAINE PF 2% 5 ML (XYLOCAINE) VIAL ONE (07:06)
[2019-08-26] MEDS ORDERED: fentaNYL INJECTION 100 MCG/2 ML AMP ONE (07:06)
[2019-08-26] MEDS ORDERED: DEXAMETHASONE 10 MG/ML (DECADRON) 1 ML VIAL ONE (07:09)
[2019-08-26] MEDS ORDERED: ONDANSETRON 4 MG/2 ML (SDV) Z0FRAN ONE (07:09)
[2019-08-26] MEDS ORDERED: ONABOTULINUMTOXINA 100 UNIT (BOTOX) VIAL INJ ONE (07:15)
--- NOTE | 2019-08-26 07:23 | Progress Note-Pre Operative ---
Pre-Operative Progress Note H&P Reviewed The H&P was reviewed, patient examined and no changes noted. Date Seen by Provider: Aug 26, 2019 Time Seen by Provider: 07:23 Date H&P Reviewed: Aug 26, 2019 Time H&P Reviewed: 07:23 Pre-Operative Diagnosis: OAB AND SEVERE URGENCY REFRACTORY TO MEDICAL TREATMENT RYAN JONES MD Aug 26, 2019 07:23
--- NOTE | 2019-08-26 07:39 | Progress Note-Post Operative ---
Post-Operative Progess Note Surgeon (s)/Communications Attendant (s) Surgeon RYAN JONES MD Communications Attendant: NONE Pre-Operative Diagnosis OAB AND SEVERE URGENCY REFRACTORY TO MEDICAL TREATMENT Post-Operative Diagnosis SAME Procedure & Operative Findings Date of Procedure 08/26/19 Procedure Performed/Findings INTRAVESICAL BOTOX INJECTIONS Anesthesia Type GENERAL Estimated Blood Loss Estimated blood loss (mL): NEGLIGIBLE Specimens/Packing Specimens Removed NONE Packing: NONE RYAN JONES MD Aug 26, 2019 07:39
--- NOTE | 2019-08-26 07:41 | Discharge Inst-Urology ---
Discharge Inst-Urology Reconcile Patient Problems Problems Reviewed?: Yes Final Diagnosis OAB AND SEVERE URGENCY REFRACTORY TO MEDICAL TREATMENT Patient Instructions/Follow Up Plan/Assessment/Instructions Please make appointment to been seen in office in 4 weeks. Showers, no baths Keep bowels soft and moving Increase oral fluids for 48 hours and then as needed. Diet and Activity as tolerated. If questions or concerns contact your physician Or seek help at emergency department. RYAN JONES MD Aug 26, 2019 07:41
[2019-08-26] MEDS ORDERED: NITR-65 PO (08:25)
[2019-08-26] MEDS ORDERED: PHEN-640 PO (08:25)
[2019-08-26] MEDS ORDERED: ONDANSETRON 4 MG/2 ML (SDV) Z0FRAN IVP PRN (08:30)
[2019-08-26] MEDS ORDERED: morphine INJ 10 MG/ML 1ML (SYR OR VIAL) IVP ONE (08:30)
--- NOTE | 2019-08-26 08:59 | Anesthesia-General Post-Op ---
General Patient Condition Mental Status/LOC: Same as Preop Cardiovascular: Satisfactory Nausea/Vomiting: Absent Respiratory: Satisfactory Pain: Controlled Complications: Absent Post Op Complications Complications None Follow Up Care/Instructions Patient Instructions None needed. Anesthesia/Patient Condition Patient Condition Patient is doing well, no complaints, stable vital signs, no apparent adverse anesthesia problems. SUE SY DO Aug 26, 2019 08:59
--- NOTE | 2019-08-26 09:08 | OPERATIVE REPORT ---
DATE OF SERVICE: 08/26/2019 PREOPERATIVE DIAGNOSIS: Overactive bladder and severe urgency, refractory to medical treatment. POSTOPERATIVE DIAGNOSIS: Overactive bladder and severe urgency, refractory to medical treatment. OPERATION PERFORMED: Intravesical Botox injection. SURGEON: Barak Jones MD. ANESTHESIA: General. COMPLICATIONS: None. DESCRIPTION OF PROCEDURE: Under satisfactory general anesthesia, the patient in lithotomy position, genitalia were prepped and draped in the usual sterile fashion. Cystoscope was introduced in the bladder and the bladder was evacuated. Then, the bladder was filled with about 200 mL, was inspected, no abnormalities. I went ahead and injected the Botox starting just above and lateral to the left ureteral orifice 0.5 mL or 5 units at a time working my way all the way laterally to the right orifice and then moving up in rows until the whole 10 mL or 100 units of Botox were injected using the described technique with very minimal bleeding. The bladder was evacuated and the cystoscope was removed. The patient tolerated the procedure and anesthesia well and was sent to recovery room in a stable condition. Job ID: [id number] DocumentID: [id number] Dictated Date: 08/26/2019 08:26:12 Account Planner Date: 08/26/2019 09:07:43 Dictated By: BARAK JONES MD
== END 2019-08-26 10:03 | disposition home or self-care (01) ==
LOC: SDC 05:57
PROVIDERS: ATTEND Urology
DX: N32.81 Overactive bladder (principal); N39.41 Urge incontinence; J44.9 Chronic obstructive pulmonary disease, unspecified; I25.10 Atherosclerotic heart disease of native coronary artery without angina pectoris; K21.9 Gastro-esophageal reflux disease without esophagitis; M19.91 Primary osteoarthritis, unspecified site; I10 Essential (primary) hypertension; F17.210 Nicotine dependence, cigarettes, uncomplicated; G47.33 Obstructive sleep apnea (adult) (pediatric); Z99.81 Dependence on supplemental oxygen; Z96.651 Presence of right artificial knee joint; Z79.899 Other long term (current) drug therapy; Z88.2 Allergy status to sulfonamides; Z88.5 Allergy status to narcotic agent; Z11.2 Encounter for screening for other bacterial diseases
CPT/HCPCS: 87081; 94640

== ENCOUNTER → 2019-11-12 | Outpatient (CLI) | payer OTHER, MEDICAID ==
[~2019-11-12] MED LIST changes: +CATHETER FLUSH 10 ML SYR IV PRN; +HOLD METFORMIN - RECEIVED CONTRAST 20 ML VIAL IV SCH; +IOHEXOL 350 MG/ML 100 ML (OMNIPAQUE 350) VIAL IV ONE; +NITR-65 PO; +NS 100 ML (IVPB) BAG IV ONE; +PHEN-640 PO; -TIZA2TAB4 PO; +TIZA2TAB7 PO
[2019-11-12 10:43] LABS: CREATININE SERUM 0.88 MG/DL (0.60-1.30); GFR ESTIMATED > 60
[2019-11-12 10:44] LABS: BUN/CREATININE RATIO 18
--- NOTE | 2019-11-12 21:53 | Diagnostic Imaging Report ---
PROCEDURE: CT chest without contrast. TECHNIQUE: Multiple contiguous axial images were obtained through the chest without the use of intravenous contrast. Auto Exposure Controls were utilized during the CT exam to meet ALARA standards for radiation dose reduction. DATE: November 12, 2019. COMPARISON: CT chest April 11, 2019. October 21, 2018. July 15, 2018. INDICATION: 59-year-old female, history of shortness of breath. Follow-up pulmonary nodules. PROCEDURE: Axial noncontrasted CT images of the chest. Noncontrasted limits the evaluation of the mediastinum and vascular structures. FINDINGS: There is a pleurally based right middle lobe pulmonary nodule on axial image 69 which measures 13 mm in size. This measured 11 mm in size on April 11, 2019 and approximately 10 mm in size on July 15, 2018. The nodule is mildly increased in size over time. There are dependent predominantly linear opacities in the right lower lobe and right middle lobe and in the left lower lobe. There is a noncalcified 5 mm left upper lobe pulmonary nodule on axial image 53 which is unchanged since July 2018. There are upper lobe predominant findings of emphysema. There is no identified pneumothorax. There is no pleural effusion. The heart is not enlarged. There is no pericardial effusion. There are atherosclerotic calcifications. There is no identified abnormally enlarged mediastinal or axillary lymph node which meets CT size criteria for adenopathy. There is a nonobstructing left renal stone. Additional partially imaged portions of the upper abdomen are unremarkable in appearance. There is a fracture line in the T4 vertebral body with approximately 25% vertebral body height loss of T4. There is no retropulsed fracture fragment. There is no fracture involvement of the posterior elements. This fracture is unchanged in appearance since April 11, 2019. IMPRESSION: 1. There is a 13 mm pleurally based right middle lobe pulmonary nodule which is mildly increasing in size over time since July 15, 2018. This previously measured approximately 10 mm in size at that time. PET/CT is recommended for further evaluation. 2. Stable 5 mm noncalcified left upper lobe pulmonary nodule since July 2018. 3. Dependent linear opacities in the lungs most likely relating to atelectasis. 4. Redemonstrated T4 vertebral body fracture without interval change in appearance since April 11, 2019. 5. Resolution of previously noted tree-in-bud type nodules in the left lower lobe on prior CT chest most consistent with prior infectious bronchiolitis or aspiration. Dictated by: Dictated on workstation # [id number]
== END ==
LOC: RAD 10:03
PROVIDERS: ATTEND Nurse Practitioner Family
DX: J44.1 Chronic obstructive pulmonary disease with (acute) exacerbation (principal); J30.9 Allergic rhinitis, unspecified; R92.8 Other abnormal and inconclusive findings on diagnostic imaging of breast; S22.049A Unspecified fracture of fourth thoracic vertebra, initial encounter for closed fracture; F17.210 Nicotine dependence, cigarettes, uncomplicated
CPT/HCPCS: 36415; 71250; 82565; 84520

== ENCOUNTER → 2019-12-05 | Outpatient (CLI) | payer OTHER, MEDICAID ==
[~2019-12-05] VITALS: Ht 160 cm; Wt 135.0 kg
[~2019-12-05] MED LIST changes: -HOLD METFORMIN - RECEIVED CONTRAST 20 ML VIAL IV SCH; -IOHEXOL 350 MG/ML 100 ML (OMNIPAQUE 350) VIAL IV ONE; -NS 100 ML (IVPB) BAG IV ONE; +REGADENOSON 0.4 MG/5 ML SYR (LEXISCAN) IV ONE
--- NOTE | 2019-12-05 16:48 | STRESS TEST ---
DATE OF SERVICE: 12/05/2019 RESTING AND POST REGADENOSON TECHNETIUM-99M TETROFOSMIN SPECT CT IMAGING ORDERING PHYSICIAN: Dr. Doll. PRIMARY PHYSICIAN: [facility]. CLINICAL DIAGNOSIS: Shortness of breath. Baseline images were carried out after injection of 9.97 mCi of technetium-99m Tetrofosmin. This was followed by 0.4 mg Regadenoson and 30 mCi of technetium-99m Tetrofosmin for stress imaging. The electrocardiogram showed sinus rhythm at baseline. The electrocardiogram did not change significantly with regadenoson infusion. The patient tolerated the procedure well. Review of images at rest and following stress indicates a small basal inferior perfusion defect that appears transient. Gated images show normal global left ventricular systolic function with normal regional wall motion. Left ventricular ejection fraction is calculated to be 79%. Left ventricular end-diastolic volume is 42 mL. TID is absent (0.93). CONCLUSIONS: 1. This study is suggestive of a small amount of basal inferior ischemia. 2. Normal regional wall motion. 3. Normal global left ventricular systolic function with a calculated ejection fraction 79%. Job ID: [id number] DocumentID: [id number] Dictated Date: 12/05/2019 13:46:44 Carpet Technician Date: 12/05/2019 16:47:50 Dictated By: DANIEL DOLL MD, MA, FACP, FACC,
== END ==
LOC: CARD 07:14
PROVIDERS: ATTEND Internal Medicine Cardiovascular Disease
DX: J44.9 Chronic obstructive pulmonary disease, unspecified (principal); I77.89 Other specified disorders of arteries and arterioles; G47.33 Obstructive sleep apnea (adult) (pediatric); Z72.0 Tobacco use
CPT/HCPCS: 78452; 93017; A9502

== ENCOUNTER 2019-12-18 05:34 | Outpatient (RCR) | payer OTHER, MEDICAID ==
[~2019-12-18] VITALS: Ht 160 cm; Wt 124.5 kg
[~2019-12-18 05:34] MED LIST changes: -CATHETER FLUSH 10 ML SYR IV PRN; -REGADENOSON 0.4 MG/5 ML SYR (LEXISCAN) IV ONE
== END 2019-12-18 13:44 | disposition home or self-care (01) ==
LOC: PREOP 05:34
PROVIDERS: ATTEND Surgery
DX: Z01.812 Encounter for preprocedural laboratory examination (principal); Z20.828 Contact with and (suspected) exposure to other viral communicable diseases; R10.30 Lower abdominal pain, unspecified; R19.4 Change in bowel habit
CPT/HCPCS: 87635

== ENCOUNTER 2019-12-23 06:58 | Day surgery (SDC) | payer MEDICARE, MEDICAID ==
[~2019-12-23] VITALS: Ht 160 cm; Wt 124.5 kg
[2019-12-23] MEDS ORDERED: LACTATED RINGERS 1,000 ML IV ONE (07:13)
[2019-12-23] MEDS ORDERED: LACTATED RINGERS 1,000 ML IV STA (07:27)
[2019-12-23 07:51] VITALS: BP 138/84
[2019-12-23] MEDS ORDERED: proPOfol 200 MG/20 ML (DIPRIVAN) VIAL IV ONE (08:44)
[2019-12-23] MEDS ORDERED: MIDAZOLAM 2 MG/2 ML (VERSED) VIAL ONE ×2 (08:44→09:19)
[2019-12-23] MEDS ORDERED: KETAMINE/NaCl 50 MG/5 ML SYRINGE (ED ONLY) ONE (09:07)
--- NOTE | 2019-12-23 09:41 | Progress Note-Post Operative ---
Post-Operative Progess Note Surgeon (s)/Molder Closed Molds (s) Surgeon CESAR PATTON DO Molder Closed Molds: na Pre-Operative Diagnosis b/l lower abdominal pain, change in bowel habits Post-Operative Diagnosis rectal polyp x 2 Procedure & Operative Findings Date of Procedure 12/23/19 Procedure Performed/Findings colonoscopy c hot bx polypectomy x 2 Anesthesia Type per mda Estimated Blood Loss Estimated blood loss (mL): none Specimens/Packing Specimens Removed rectal polyps x2 CESAR PATTON DO Dec 23, 2019 09:41
--- NOTE | 2019-12-23 09:43 | Discharge Inst-Simple/Standard ---
Discharge Inst-Standard Patient Instructions/Follow Up Plan of Care/Instructions/FU: 2 weeks [place] Activity as Tolerated: Yes Discharge Diet: Regular Diet (high fiber) CESAR PATTON DO Dec 23, 2019 09:43
[2019-12-23 09:45] VITALS: BP 137/66
[2019-12-23 10:15] VITALS: BP 135/70
--- NOTE | 2019-12-23 10:29 | Anesthesia-General Post-Op ---
MAC Patient Condition Mental Status/LOC: Same as Preop Cardiovascular: Satisfactory Nausea/Vomiting: Absent Respiratory: Satisfactory Pain: Controlled Complications: Absent Post Op Complications Complications None Follow Up Care/Instructions Patient Instructions None needed. Anesthesiology Discharge Order Discharge Order Patient was seen after the procedure and she was doing well, no complaints, stable vital signs, no apparent adverse anesthesia problems. SUE SY DO Dec 23, 2019 10:29
[2019-12-23 10:46] VITALS: BP 135/70
--- NOTE | 2019-12-23 16:37 | OPERATIVE REPORT ---
DATE OF SERVICE: 12/23/2019 PREOPERATIVE DIAGNOSES: Bilateral lower quadrant abdominal pain, change in bowel habits. POSTOPERATIVE DIAGNOSIS: Rectal polyp x2. SURGEON: Cesar Atlman DO ANESTHESIA: Per MDA. PROCEDURE PERFORMED: Colonoscopy with hot biopsy polypectomy x2. ESTIMATED BLOOD LOSS: None. COMPLICATIONS: None. INDICATIONS FOR PROCEDURE: The patient is a 59-year-old female with bilateral lower quadrant abdominal pain. She is having slight change in bowel habits. She understands the risks and benefits of the procedure and wished to proceed with procedure. Consent was signed in the chart. DESCRIPTION OF PROCEDURE: The patient was taken to the endoscopy suite and placed in the left lateral recumbent position. Timeout was performed. Digital rectal exam was performed. There were no palpable polyps, masses or ulcerations. Scope was inserted in the rectum and advanced all the way to cecum with minimal difficulty. Prep was adequate with irrigation and suction. Scope was then slowly retracted back. There were no polyps, masses or ulcerations within the cecum, ascending, transverse and descending colon. No polyps, masses or ulcerations in the sigmoid colon. Once in the rectum, two small polyps were present, for which hot biopsy polypectomy was performed. Scope was retroflexed noting no other pathology. Scope was returned to its normal position, slowly withdrawn until completely removed. The patient tolerated the procedure well without any complications. She was taken to recovery room in stable condition. RECOMMENDATIONS: The patient will have repeat colonoscopy in 5 years. Any issues before that will be seen at that time. Job ID: [id number] DocumentID: [id number] Dictated Date: 12/23/2019 09:45:11 Jockey Agent Date: 12/23/2019 13:01:25 Dictated By: CESAR ALTMAN DO
== END 2019-12-23 10:45 | disposition home or self-care (01) ==
LOC: ENDO 06:58
PROVIDERS: ATTEND Surgery
DX: K62.1 Rectal polyp (principal); R19.4 Change in bowel habit; I10 Essential (primary) hypertension; J44.9 Chronic obstructive pulmonary disease, unspecified; F17.210 Nicotine dependence, cigarettes, uncomplicated; G47.33 Obstructive sleep apnea (adult) (pediatric); K21.9 Gastro-esophageal reflux disease without esophagitis; G89.18 Other acute postprocedural pain; M54.5 Low back pain; M06.9 Rheumatoid arthritis, unspecified; Z79.51 Long term (current) use of inhaled steroids; Z79.899 Other long term (current) drug therapy; Z88.5 Allergy status to narcotic agent; Z88.2 Allergy status to sulfonamides; Z91.030 Bee allergy status; Z88.8 Allergy status to other drugs, medicaments and biological substances

== ENCOUNTER → 2019-12-30 | Outpatient (CLI) | payer MEDICARE, MEDICAID ==
--- NOTE | 2019-12-30 13:26 | Diagnostic Imaging Report ---
INDICATION: Right middle lobe nodule. Serum blood glucose level at the time of injection is 109 mg/dL. Patient was administered 14.3 mCi F-18 FDG intravenously in the right arm and PET imaging was performed from the top of skull to mid thighs. Noncontrast CT was also performed for attenuation correction and anatomic correlation. No prior PET/CT studies are available for comparison. Comparison is made with recent conventional CT chest from 11/12/2019. There is symmetric activity throughout the brain. Soft tissues of the neck are unremarkable. No mediastinal or hilar hypermetabolism is identified. The pleural-based density in the lateral aspect of the right middle lobe does not demonstrate FDG avidity. No pulmonary parenchymal hypermetabolism is detected. Abdomen and pelvis demonstrate physiologic activity within the gastrointestinal genitourinary tracts. No suspicious hypermetabolism is identified. IMPRESSION: Unremarkable PET/CT study. No suspicious hypermetabolism is detected. Continued follow-up CT chest would be recommended with repeat exam in approximately 6 months to show continued stability of the pleural based density in the right middle lobe. Dictated by: Dictated on workstation # [id number]
== END ==
LOC: RAD 07:49
PROVIDERS: ATTEND Nurse Practitioner Family
DX: J44.9 Chronic obstructive pulmonary disease, unspecified (principal); J30.9 Allergic rhinitis, unspecified; J98.4 Other disorders of lung; G47.33 Obstructive sleep apnea (adult) (pediatric); R91.8 Other nonspecific abnormal finding of lung field; Z72.0 Tobacco use
CPT/HCPCS: 78815; A9552

== ENCOUNTER 2020-01-13 07:35 | Day surgery (SDC) | payer MEDICARE, MEDICAID ==
[2020-01-13] VITALS (11 sets, daily range): BP systolic 124–146; BP diastolic 53–82
[~2020-01-13] VITALS: Ht 160 cm; Wt 134.0 kg
[2020-01-13] MEDS ORDERED: LIDOCAINE 1% INJ 20 ML 20 ML VIAL ONE (07:38)
[2020-01-13] MEDS ORDERED: HEParin (CATH LAB) 2,000 ML IV ONE (07:38)
[2020-01-13] MEDS ORDERED: NS IV 1000 ML 1,000 ML ONE (07:38)
[2020-01-13] MEDS ORDERED: NS IV 1000 ML 1,000 ML IV SCH ×2 (07:45→10:40)
[2020-01-13] MEDS ORDERED: DOCU100C37 PO (08:07)
[2020-01-13] MEDS ORDERED: TIZA4CAP8 PO (08:07)
[2020-01-13] MEDS ORDERED: CETI10TA17 PO (08:07)
[2020-01-13] MEDS ORDERED: TRAZ-227 PO (08:07)
[2020-01-13] MEDS ORDERED: PANT40TA3 PO (08:07)
[2020-01-13] MEDS ORDERED: FAMO20TA25 PO (08:07)
[2020-01-13 08:35] LABS: HEMOGLOBIN 13.7 G/DL (11.5-16.0); MEAN PLATELET VOLUME 11.1 FL (7.4-10.4); RED CELL DISTRIBUTION WIDTH 15.6 % (10.0-14.5); WHITE BLOOD COUNT 8.8 10^3/uL (4.3-11.0)
[2020-01-13 08:46] LABS: INR 0.9 (0.8-1.4); PROTHROMBIN TIME PATIENT 12.4 SEC (12.2-14.7)
[2020-01-13 08:56] LABS: ALBUMIN 3.8 GM/DL (3.2-4.5); BILIRUBIN,TOTAL 0.4 MG/DL (0.1-1.0); CALCIUM 8.6 MG/DL (8.5-10.1); CREATININE SERUM 0.99 MG/DL (0.60-1.30); TOTAL PROTEIN 6.5 GM/DL (6.4-8.2)
[2020-01-13] MEDS ORDERED: fentaNYL INJECTION 100 MCG/2 ML AMP ONE (09:57)
[2020-01-13] MEDS ORDERED: MIDAZOLAM 5 MG/5 ML (VERSED) VIAL ONE (09:57)
--- NOTE | 2020-01-13 10:26 | Cardiac Procedure Note-CS/ASA ---
Pre-Procedure Note Pre-Op Procedure Note H&P Reviewed The H&P was reviewed, patient examined and no changes noted. Date H&P Reviewed: Jan 13, 2020 Time H&P Reviewed: 10:26 Conscious Sedation Pre-Proced Time 10:26 ASA Score 3 For ASA 3 and 4: Consider anesthesia and medical clearance. Also, for patients with a history of failed moderate sedation consider anesthesia. Airway Lungs Heart ASA score ASA 1: a normal healthy patient ASA 2: a patient with a mild systemic disease (mid diabetes, controlled hypertension, obesity ASA 3: a patient with a severe systemic disease that limits activity (angina, COPD, prior Myocardial infarction) ASA 4: a patient with an incapacitating disease that is a constant threat to life (CHF, renal failure) ASA 5: a moribund patient not expected to survive 24 hrs. (ruptured aneurysm) ASA 6: a declared brain- patient whose organs are being harvested. For emergent operations, add the letter E after the classification Mallampati Classification Grade 2 Sedation Plan Analgesia, Amnesia, Plan communicated to team members, Discussed options with patient/fam, Discussed risks with patient/fam The patient is an appropriate candidate to undergo the planned procedure, sedation, and anesthesia. The patient immediately re-assessed prior to indication. DANIEL TRIPP MD FACP FAC CCDS Jan 13, 2020 10:26
--- NOTE | 2020-01-13 10:43 | Discharge Inst-Cardiology ---
Discharge Inst-Cardiac Discharge Medications Continued Medications: Albuterol Sulfate (Proair Hfa) 1 Puff Puff 2 PUFF IH Q6H PRN for SHORTNESS OF BREATH, INHALER 1 PUFF = 90 MCG Albuterol Sulfate (Albuterol Sulfate) 2.5 Mg/3 Ml Vial.neb 2.5 MG NEB BID, EA Albuterol Sulfate (Albuterol Sulfate) 2.5 Mg/3 Ml Vial.neb 2.5 MG NEB BID PRN for SHORTNESS OF BREATH, EA Budesonide/Formoterol Fumarate (Symbicort 160-4.5 Mcg Inhaler) 10.2 Gm Hfa.aer.ad 2 PUFF INH BID, INHALER Buspirone HCl (Buspirone HCl) 15 Mg Tablet 15 MG PO TID, TAB Cetirizine HCl (Cetirizine HCl) 10 Mg Tablet 10 MG PO DAILY, TAB Docusate Sodium (Docusate Sodium) 100 Mg Capsule 100 MG PO DAILY, CAP Escitalopram Oxalate (Escitalopram Oxalate) 20 Mg Tablet 20 MG PO DAILY, TAB Famotidine (Heartburn Relief) 20 Mg Tablet 20 MG PO DAILY, TAB Gabapentin (Gabapentin) 400 Mg Capsule 400 MG PO TID, CAP Hydroxyzine HCl (Hydroxyzine HCl) 25 Mg Tablet 25 MG PO TID PRN for ANXIETY, TAB Meloxicam (Meloxicam) 7.5 Mg Tablet 7.5 MG PO DAILY, TAB Mirabegron (Myrbetriq) 50 Mg Tab.er.24h 50 MG PO HS, TAB Montelukast Sodium (Montelukast Sodium) 10 Mg Tablet 10 MG PO HS, TAB Pantoprazole Sodium (Pantoprazole Sodium) 40 Mg Tablet.dr 40 MG PO DAILY, TAB Ropinirole HCl (Ropinirole HCl) 0.5 Mg Tablet 0.5 MG PO HS, TAB Simvastatin (Simvastatin) 40 Mg Tablet 40 MG PO HS, TAB Tiotropium [place] (Spiriva) 1 Inh Aerp 1 CAP INH DAILY, INHALER Tizanidine HCl (Tizanidine HCl) 4 Mg Capsule 4 MG PO TID PRN for MUSCLE SPASMS, CAP Topiramate (Topiramate) 100 Mg Tablet 100 MG PO DAILY, TAB Tramadol HCl (Tramadol HCl) 50 Mg Tablet 50-100 MG PO TID, TAB Trazodone HCl (Trazodone HCl) 100 Mg Tablet 100 MG PO HS, TAB DANIEL TRIPP MD FACP FAC CCDS Jan 13, 2020 10:43
--- NOTE | 2020-01-13 10:44 | Discharge Inst-Post CATH ---
Discharge Inst-CATH/EP Post Cardiac Cath/EP D/C Inst Follow Up/Plan F/u with Dr Doll in 2 weeks <b>CARDIAC CATH/EP PROCEDURE DISCHARGE INSTRUCTIONS</b> ACTIVITY * Go Home directly and rest. * Limit activity of the leg (or wrist if it was used) for 7 days including aerobics, swimming, jogging, bicycling, etc. * Restrict stair-climbing for 7 days if possible, if not, climb up with your non-cath leg, then bring together on the same step. * Avoid lifting, pushing, pulling or excessive movement of the affected extremity for 7 days. * Customary sexual activity may be resumed after 2 days-use caution not to use a position that strains or causes pain to the affected extremity. * No driving for 24 hours. * NO SMOKING. * Avoid straining for bowel movements for 7 days. * Gentle walking on level ground is allowed. * Returning to work will depend on the type of procedure and the results. Your doctor will discuss this with you. CALL YOUR DOCTOR FOR ANY OF THE FOLLOWING: *If bleeding from the puncture site occurs- Apply gentle pressure to site with clean cloth and call your doctor or EMS. * If a knot or lump forms under the skin, increases in size, or causes pain. * If bruising appears to be worsening or moving further down your leg instead of disappearing. * Temperature above 101 F. CARE OF YOUR GROIN INCISION; * Bruising or purple discoloration of the skin near the puncture site is common. * You may shower only, no bathtub bathing for 5 days. Be careful to avoid slipping as your leg may feel stiff. * If a closure device was used on your femoral artery, please see the attached guide regarding care of the device and your leg. * Leave dressing on FOR 24 hours. CARE OF YOUR WRIST INCISION; * Bruising or purple discoloration of the skin near the puncture site is common. * You may shower. * DO NOT submerge wrist. * Leave dressing on FOR 24 hours. DANIEL DOLL MD [facility] CCDS Jan 13, 2020 10:44
[2020-01-13] MEDS ORDERED: PATIENT MAY USE OWN MEDS, ALL PO SCH (10:45)
--- NOTE | 2020-01-13 11:03 | CARDIAC CATHETERIZATION ---
DATE OF SERVICE: 01/13/2020 CARDIAC CATHETERIZATION REPORT INDICATIONS FOR PROCEDURE: The patient is a 59-year-old lady with multiple coronary artery disease risk factors, exertional chest discomfort and shortness of breath and an abnormal myocardial perfusion imaging study. Cardiac catheterization was carried out today after having obtained an informed consent. DESCRIPTION OF PROCEDURE: She was brought to the cardiac catheterization laboratory in a fasting state. Right groin was prepared and draped in the usual sterile fashion. Lidocaine 1% was used for local anesthesia. Modified Seldinger technique used to advance a 5-Maltese sheath in the right femoral artery, 5-Maltese JL4 catheter for left coronary angiography, 5-Maltese JR4 catheter for right coronary angiography, 5-Maltese pigtail catheter was used for left heart catheterization and left ventricular angiography. Angiography of the right femoral artery was carried out through the sheath. Mynx was used to achieve hemostasis following sheath removal. She tolerated the procedure well. HEMODYNAMICS: Left ventricular end-diastolic pressure following coronary angiography was 21 mmHg. There was no significant pressure gradient on pullback across the aortic valve. Ascending aortic pressure was 124/74 with a mean of 96 mmHg. CORONARY ANGIOGRAPHY: Left main coronary artery, left anterior descending artery, left circumflex artery and right coronary artery do not exhibit any significant coronary artery disease. Right coronary artery is dominant. LEFT VENTRICULAR ANGIOGRAPHY: Left ventricular angiography was carried out in the right anterior oblique projection. Global left ventricular systolic function normal. No regional wall motion abnormalities seen. Left ventricular ejection fraction is 50% to 55%. CONCLUSIONS: 1. No angiographically significant coronary artery disease. 2. Normal global left ventricular systolic function with an ejection fraction of 50% to 55%. 3. Elevated left ventricular end-diastolic pressure (21 mmHg). DISCUSSION AND RECOMMENDATIONS: Based on results of the study, it appears appropriate to continue a conservative approach. Risk factor modification has been reviewed. Current regimen is being continued. Outpatient followup is advised. Job ID: [id number] DocumentID: [id number] Dictated Date: 01/13/2020 10:48:53 Banquet Supervisor Date: 01/13/2020 11:02:33 Dictated By: DANIEL TRIPP MD, MA, FACP, FACC,
--- OUTSIDE RECORDS SUMMARY | 2020-01-13 11:35 | XMS REPORT ---
Author Author Monique GRAJEDA [facility] Address [address] [place] [address] Care Team Providers Care Bacon Skinner Name Role Phone ARIAS GRAJEDA Unavailable PROBLEMS Type Condition ICD9-CM Code OIO78-XD Code Onset Dates Condition S tatus SNOMED Code Problem Snoring R06.83 Active 58740333 Problem MRSA (methicillin resistant staph aureus) culture positive Z22.322 Active 698811736 Problem History of illicit drug use Z87.898 Ac tive 742288275 Problem Dysthymic disorder F34.1 Active 7 1119463 Problem Impaired circulation I99.9 Active 56976165 Problem Panic disorder without agoraphobia F41.0 Active 77155120 Problem Agoraphobia F40.00 Active 06362173 Problem Psychotic disorder F29 Active 6 2127312 Problem Mood disorder F39 Active 951064 05 Problem On home oxygen therapy Z99.81 Active 473379238592 Problem Mild chronic obstructive pulmonary disease J44.9 Active 335177216 Problem Neuropathy G62.9 Active 716360344 Problem Essential hypertension I10 Active 68895128 Problem Major depressive disorder, recurrent episode, moderate F33.1 Active 492981411 Problem 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 Active 037360 02 Problem Arthritis M19.90 Active 7203337 Problem 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 Active 788431074 Problem Hypertension, benign I10 Active 98600746 Problem Onychomycosis B35.1 Active 067378 008 Problem Major depressive disorder in full remission F32.5 Active 16881441 Problem Sciatica, left side M54.32 Active 23191375 Problem Varicose veins of both lower extremities I83.93 Active 56833180 Problem COPD exacerbation J44.1 Active 19 2137576 Problem Fatigue R53.83 Active 86092269 Problem Mild persistent asthma without complication J45.30 Active 293736825 Problem Slow transit constipation K59.01 Acti ve 30216173 Problem Chronic obstructive pulmonary disease, unspecified COPD ty pe J44.9 Active 89722561 Problem Body mass index (BMI) 40.0-44.9, adult Z68.41 Active 552542361 Problem Unspecified psychosis not du e to a substance or known physiological condition F29 Active 860423914 ALLERGIES No Information ENCOUNTERS Encounter Location Date Diagnosis [facility] [address] [facility] [id number] [address] [place] [address] Jan, [facility] [address] [place] [id number] [address] [place] [address] Dec, [facility] [address] [facility] [id number] [place] [address] Dec, [facility] [address] [place] [id number] [place] [address] Dec, [facility] [address] [address] Dec, [facility] [address] [place] [id number] [address] [place] [address] Dec, Abdominal pain, right upper quadrant R10.11 [facility] [address] [place] [id number] [address] [place] [address] Dec, [facility] [address] [place] [id number] [address] [place] [address] Dec, [facility] [address] [place] [id number] [address] [place] [address] Dec, Acute cystitis without hemat uria N30.00 [facility] [address] [place] [id number] [address] [place] [address] Nov, Major depressive disorder, r ecurrent episode, moderate F33.1 ; Panic disorder without agoraphobia F41.0 and Morbid obesity E66.01 [facility] [address] [facility] [id number] [address] [place] [address] Nov, Major depressive disorder, r ecurrent episode, moderate F33.1 and Panic disorder without agoraphobia F41.0 [facility] [address] [facility] [id number] [address] [place] [address] Nov, [facility] [address] [facility] [id number] [address] [place] [address] Nov, [facility] [address] [facility] [id number] [address] [place] [address] Nov, Essential hypertension I10 [facility] [address] [facility] [id number] [address] [place] [address] Nov, COPD exacerbation J44.1 ; Ex posure to viral disease Z20.828 ; Sore throat J02.9 and Community acquired pneumonia of right lower lobe of lung J18.9 [place] [address] [facility] [id number] [address] [place] [address] Nov, [facility] [id number] [place] [address] Nov, [facility] [address] 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 [id number] [address] [place] [address] 10 Nov, 2019 Abdominal pain, right upper quadrant R10.11 [facility] [address] [facility] [id number] [address] [place] [address] October, Major depressive disorder, r ecurrent episode, moderate F33.1 and Panic disorder without agoraphobia F41.0 [facility] [address] [facility] [id number] [address] [place] [address] 13 Oct, 2019 Abdominal pain, right upper quadrant R10.11 [facility] [address] [facility] [id number] [address] [place] [address] Sep, [facility] [place] [id number] [place] [address] Sep, [place] [address] [address] 15 Sep, 2019 Abdominal pain, right upper quadrant R10.11 [place] [address] [address] 06 Sep, 2019 Panic disorder without agora phobia F41.0 ; Major depressive disorder, recurrent episode, moderate F33.1 and Morbid obesity E66.01 [place] [address] [address] Aug, Bronchitis J40 [place] [address] [address] Aug, Sciatica, left side M54.32 a nd Morbid obesity E66.01 [place] [address] [address] Aug, [place] [address] [address] Aug, Sciatica, left side M54.32 [place] [address] [address] Aug, Neuropathy G62.9 ; Onychomyc osis B35.1 ; Callus of foot L84 and Skin fissures R23.4 [place] [address] [address] Jul, [place] [address] [address] Jul, Morbid obesity E66.01 [place] [address] [address] Jul, Unspecified psychosis not du e to a substance or known physiological condition F29 ; Chronic obstructive pulmonary disease, unspecified COPD type J44.9 and Body mass index (BMI) 40.0-44.9, adult Z68.41 [place] [address] [address] Jun, [place] [address] [facility] [id number] [address] [place] [address] Jun, Morbid obesity E66.01 [place] [address] [facility] [id number] [address] [place] [address] May, Morbid obesity E66.01 [place] [address] [place] [id number] [address] [place] [address] May, Encounter for immunization Z 23 [place] [address] [facility] [id number] [address] [place] [address] May, Major depressive disorder, r ecurrent episode, moderate F33.1 ; Panic disorder without agoraphobia F41.0 and Morbid obesity E66.01 [place] [address] [place] [id number] [place] [address] May, Major depressive disorder in full remission F32.5 and Panic disorder without agoraphobia F41.0 [place] [address] [place] [id number] [place] [address] Apr, Morbid obesity E66.01 [place] [address] [place] [id number] [place] [address] Apr, Slow transit constipation K5 9.01 and Cellulitis of left lower extremity L03.116 [place] [address] [place] [id number] [place] [address] Apr, Morbid obesity E66.01 [place] [address] [facility] [id number] [address] [place] [address] Apr, [place] [address] [facility] [id number] [address] [place] [address] Apr, Major depressive disorder, r ecurrent episode, moderate F33.1 and Panic disorder without agoraphobia F41.0 [place] [address] [facility] [id number] [address] [place] [address] Mar, Viral upper respiratory trac t infection J06.9 [place] [address] [place] [id number] [address] [place] [address] 10 Mar, 2019 Bronchitis J40 and Encounter for immunization Z23 [place] [address] [place] [id number] [place] [address] 08 Mar, 2019 Morbid obesity E66.01 [place] [address] [address] 11 Feb, 2019 Major depressive disorder, r ecurrent episode, moderate F33.1 and Panic disorder without agoraphobia F41.0 [place] [address] [place] [address] 10 Feb, 2019 Morbid obesity E66.01 [place] [address] [place] [address] 06 Feb, 2019 Onychomycosis B35.1 ; Type 2 diabetes mellitus with diabetic neuropathic arthropathy E11.610 and Xerosis of skin L85.3 [place] [address] [place] [address] 04 Feb, 2019 Major depressive disorder, r ecurrent episode, moderate F33.1 ; Panic disorder without agoraphobia F41.0 and Morbid obesity E66.01 [place] [address] [place] [id number] [place] [address] Jan, Major depressive disorder in full remission F32.5 and Panic disorder without agoraphobia F41.0 [place] [address] [place] [address] Jan, Pneumonia of both lower lobe s due to infectious organism J18.1 and Morbid obesity E66.01 [place] [address] [place] [address] Jan, [place] [address] [place] [id number] [place] [address] Jan, Major depressive disorder in full remission F32.5 and Panic disorder without agoraphobia F41.0 [place] [id number] [facility] [id number] [address] [place] [address] Jan, [facility] [address] [facility] [id number] [address] [place] [address] Jan, Major depressive disorder, r ecurrent episode, moderate F33.1 ; Panic disorder without agoraphobia F41.0 and Morbid obesity E66.01 [place] [address] [place] [id number] [place] [address] Dec, Bilious vomiting with nausea R11.14 ; Coughing R05 and Choking, subsequent encounter T17.308D [place] [address] [place] [id number] [place] [address] Dec, Morbid obesity E66.01 [place] [address] [place] [id number] [place] [address] Dec, Major depressive disorder, r ecurrent episode, moderate F33.1 and Panic disorder without agoraphobia F41.0 [place] [address] [place] [id number] [place] [address] Dec, [place] [address] [place] [id number] [place] [address] Dec, Major depressive disorder, r ecurrent episode, moderate F33.1 [place] [address] [place] [id number] [place] [address] Nov, Major depressive disorder, r ecurrent episode, moderate F33.1 ; Panic disorder without agoraphobia F41.0 and Morbid obesity E66.01 [facility] [address] [facility] [id number] [address] [place] [address] Nov, Morbid obesity E66.01 [facility] [address] [place] [id number] [place] [address] Nov, Major depressive disorder, r ecurrent episode, moderate F33.1 and Panic disorder without agoraphobia F41.0 [facility] [address] [place] [id number] [place] [address] Nov, Allergic reaction, initial e ncounter T78.40XA and Morbid obesity E66.01 [place] [address] [place] [id number] [place] [address] Nov, [place] [id number] [place] [id number] [place] [address] Nov, Morbid obesity E66.01 ; Swal lowing problem R13.10 and Hypertension, benign I10 [facility] [address] [place] [id number] [place] [address] 07 Nov, 2018 Morbid obesity E66.01 ; COPD exacerbation J44.1 and Non- recurrent acute suppurative otitis media of left ear without spontaneous rupture of tympanic membrane H66.002 [place] [address] [address] Nov, Onychomycosis B35.1 ; Neurop athy G62.9 and Fissure in skin of foot R23.4 [place] [address] [address] October, Major depressive disorder, r ecurrent episode, moderate F33.1 ; Panic disorder without agoraphobia F41.0 and Morbid obesity E66.01 [facility] [address] [address] October, Viral upper respiratory trac t infection J06.9 [place] [address] [place] [id number] [place] [address] October, [place] [address] [place] [id number] [place] [address] October, Major depressive disorder, r ecurrent episode, moderate F33.1 and Panic disorder without agoraphobia F41.0 [place] [address] [place] [id number] [place] [address] October, [place] [address] [place] [address] October, [facility] [address] [facility] [id number] [address] [place] [address] October, [facility] [address] [facility] [id number] [address] [place] [address] October, [facility] [address] [facility] [id number] [address] [place] [address] October, [facility] [address] [facility] [id number] [address] [place] [address] October, [facility] [address] [facility] [id number] [address] [place] [address] October, Major depressive disorder, r ecurrent episode, moderate F33.1 and Panic disorder without agoraphobia F41.0 [facility] [address] [address] Sep, Morbid obesity E66.01 and Vane mbar neuritis M54.16 [facility] [address] [place] [id number] [place] [address] Sep, Panic disorder without agora phobia F41.0 and Major depressive disorder, recurrent episode, moderate F33.1 [facility] [address] [facility] [id number] [address] [place] [address] Sep, Gastroenteritis K52.9 ; Low back pain M54.5 ; Other chronic pain G89.29 and Morbid obesity E66.01 [facility] [address] [facility] [id number] [address] [place] [address] Sep, Major depressive disorder, r ecurrent episode, moderate F33.1 ; Panic disorder without agoraphobia F41.0 and 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 [facility] [address] [facility] [id number] [address] [place] [address] Sep, Panic disorder without agora phobia F41.0 [facility] [address] [place] [id number] [place] [address] Sep, Panic disorder without agora phobia F41.0 [place] [address] [address] Aug, Panic disorder without agora phobia F41.0 ; Major depressive disorder, recurrent episode, moderate F33.1 ; 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 ; Psychotic disorder F29 ; Tardive dyskinesia G24.01 and Morbid obesity E66.01 [place] [address] [address] Aug, Dysthymic disorder F34.1 and Psychotic disorder F29 [place] [address] [address] Aug, [facility] ; Morbid obesity E66.01 and 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 [place] [address] [address] Aug, Dysthymic disorder F34.1 and Psychotic disorder F29 [place] [address] [address] Aug, Neuropathy G62.9 ; Onychomyc osis B35.1 and Xerosis of skin L85.3 [place] [address] [address] Jul, [place] [address] [address] Jul, Mood disorder F39 ; Wheezing R06.2 ; Choking, initial encounter T17.308A and Coughing R05 [place] [address] [address] 07 Jul, 2018 Low back pain M54.5 [facility] [address] [place] [id number] [address] [place] [address] Jun, Flu-like symptoms R68.89 ; B [place] 45.0-49.9, adult Z68.42 ; COPD exacerbation J44.1 and Acute bronchitis J20.9 [place] [address] [address] Jun, [place] [address] [place] [id number] [place] [address] May, [place] [address] [address] May, Onychomycosis B35.1 and 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 [place] [address] [address] May, Low back pain M54.5 and Abdoulaye a leg R60.0 [place] [address] [address] 11 May, 2018 BMI 45.0-49.9, adult Z68.42 ; Well woman exam with routine gynecological exam Z01.419 and Breast cancer screening Z12.31 [place] [address] [address] 19 Apr, 2018 Arthritis M19.90 [place] [address] [address] 16 Apr, 2018 Arthritis M19.90 and Otalgia of both ears H92.03 [place] [address] [address] 28 Feb, 2018 [place] [address] [address] 28 Feb, 2018 Low back pain M54.5 ; Other chronic pain G89.29 ; Exertional asthma J45.990 and Encounter for immunization Z23 [place] [address] [place] [id number] [place] [address] 21 Feb, 2018 Skin fissures R23.4 ; Neurop athy G62.9 and Onychomycosis B35.1 [place] [address] [address] 05 Feb, 2018 Dysthymic disorder F34.1 [facility] [address] [address] 04 Feb, 2018 [facility] [address] [address] Jan, [place] [address] [address] Jan, Abrasion of right elbow, ini tial encounter S50.311A ; Abrasion, right knee, initial encounter S80.211A and Sprain of other ligament of right ankle, initial encounter S93.491A [place] [address] [address] Jan, [facility] [address] [address] Jan, Injury of left ankle, initia l encounter S99.912A ; Fall down stairs, initial encounter W10.8XXA and BMI 45.0-49.9, adult Z68.42 [place] [address] [address] Jan, COPD exacerbation J44.1 [place] [address] [address] Jan, 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 [place] [address] [address] Jan, Bronchitis J40 and Acute sup purative otitis media of left ear without spontaneous rupture of tympanic membrane, recurrence not specified H66.002 [place] [address] [place] [id number] [place] [address] Jan, [place] [address] [address] Jan, Bronchitis J40 and BMI 40.0- 44.9, adult Z68.41 [place] [address] [address] Jan, [place] [address] [address] Dec, Gastric pain R10.9 [place] [address] [address] Dec, [place] [address] [address] Dec, History of illicit drug use Z87.898 ; Neuropathy G62.9 ; COPD (chronic obstructive pulmonary disease) with chronic bronchitis J44.9 and Acute pain of right knee M25.561 [place] [address] [address] Nov, [place] [address] [address] Nov, Onychomycosis B35.1 and Cont usion of left foot, subsequent encounter S90.32XD [place] [address] [address] Nov, COPD exacerbation J44.1 [place] [address] [address] Sep, [place] [address] [address] Sep, Dysthymic disorder F34.1 ; T obacco abuse Z72.0 ; Pain in right knee M25.561 ; Pain in left knee M25.562 ; Other chronic pain G89.29 and BMI 40.0- 44.9, adult Z68.41 [place] [address] [address] Aug, Major depressive disorder, r ecurrent episode, moderate F33.1 and 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 [place] [address] [address] 14 Aug, 2017 Dysthymic disorder F34.1 ; N on-pressure chronic ulcer of left thigh, unspecified ulcer stage L97.129 ; Tobacco abuse Z72.0 ; Mild chronic obstructive pulmonary disease J44.9 and Forgetfulness R68.89 [place] [address] [place] [address] 09 Aug, 2017 Onychomycosis B35.1 ; Fissur e in skin of foot R23.4 and Foot callus L84 [facility] [address] [place] [address] Jul, Right medial knee pain M25.5 61 ; Upper respiratory tract infection, unspecified type J06.9 and BMI 40.0-44.9, adult Z68.41 [facility] [place] [address] [address] Jul, Nausea and vomiting, intract ability of vomiting not specified, unspecified vomiting type R11.2 ; Left ear pain H92.02 and Gastric pain R10.9 [place] [address] [address] Apr, Encounter for immunization Z 23 [place] [address] [address] Apr, Onychomycosis B35.1 ; Xerosi s of skin L85.3 ; Neuropathy G62.9 and 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 [id number] [address] [place] [id number] Aug, [facility] [address] [facility] [id number] [address] [place] [id number] Aug, [facility] [address] [facility] [id number] [address] [place] [id number] Jul, [facility] [address] [facility] [id number] [address] [place] [id number] Jul, [facility] [address] [facility] [id number] [address] [place] [id number] Jul, Decubitus ulcer of left thig h, stage 2 L89.892 [facility] [address] [facility] [id number] [address] [place] [id number] Jul, Decubitus ulcer of left thig h, stage 2 L89.892 [facility] [address] [facility] [id number] [address] [place] [id number] Jul, [facility] [address] [facility] [id number] [address] [place] [id number] 15 Jul, 2016 Decubitus ulcer of left thig h, stage 2 L89.892 [facility] [address] [facility] [id number] [address] [place] [id number] 14 Jul, 2016 [facility] [address] [facility] [id number] 80 [place] [address] 13 Jul, 2016 Cellulitis of other specifie d site L03.818 ; Illicit drug use F19.90 and Decubitus ulcer of left thigh, stage 2 L89.892 [facility] [address] [facility] [id number] [address] [place] [address] 08 Jul, 2016 [facility] [address] [facility] [id number] [address] [place] [address] 06 Jul, 2016 Cellulitis of right breast N 61.0 [facility] [address] [id number] [address] [place] [address] Jun, [facility] [address] [facility] [id number] [address] [place] [address] Jun, [facility] [address] [facility] [id number] [address] [place] [address] Jun, Wheezing R06.2 and Arthralgi a, unspecified joint M25.50 [facility] [address] [facility] [id number] [address] [place] [address] May, [facility] [address] [facility] [id number] [address] [place] [address] May, [facility] [address] [facility] [id number] [address] [place] [address] May, [facility] [address] [place] [id number] [address] [place] [address] 05 May, 2016 Shortness of breath R06.02 [facility] [address] [facility] [id number] [address] [place] [address] May, Onychomycosis B35.1 and Fiss ure in skin of foot R23.4 [facility] [address] [facility] [id number] [address] [place] [address] Apr, [facility] [address] [facility] [id number] [address] [place] [address] 18 Apr, 2016 Dizziness R42 [facility] [address] [facility] [id number] [address] [place] [address] 14 Apr, 2016 Shortness of breath R06.02 ; Essential hypertension I10 ; Dizziness R42 and On home oxygen therapy Z99.81 [facility] [address] [facility] [id number] [address] [place] [address] Apr, [facility] [address] [facility] [id number] [address] [place] [address] 08 Apr, 2016 [facility] [address] [id number] [address] [place] [address] Apr, [facility] [address] [id number] [address] [place] [address] Apr, [facility] [address] [id number] [address] [place] [address] Apr, [facility] [address] [id number] [address] [place] [address] Apr, [facility] [address] [id number] [address] [place] [address] Apr, [facility] [address] [id number] [address] [place] [address] Mar, Mild chronic obstructive pul monary disease J44.9 [facility] [address] [id number] [address] [place] [address] Mar, [facility] [address] [facility] [id number] [address] [place] [address] Mar, Epigastric pain R10.13 ; Low back pain M54.5 ; Other chronic pain G89.29 and Breast cancer screening Z12.39 [facility] [address] [facility] [id number] [address] [place] [address] Mar, [facility] [address] [id number] [address] [place] [address] Mar, [facility] [address] [id number] [address] [place] [address] Feb, [facility] [address] [id number] [address] [place] [address] Feb, [facility] [address] [facility] [id number] [address] [place] [address] Feb, Fissure in skin of foot R23. 4 and Onychomycosis B35.1 [facility] [address] [id number] [address] [place] [address] Jan, Agoraphobia F40.00 [facility] [address] [facility] [id number] [address] [place] [address] Dec, Agoraphobia F40.00 [facility] [address] [facility] [id number] [address] [place] [address] Dec, Mild persistent asthma witho ut complication J45.30 ; Dysthymic disorder F34.1 and Upper respiratory tract infection, unspecified type J06.9 [facility] [address] [facility] [id number] [address] [place] [address] Nov, Agoraphobia F40.00 [facility] [address] [facility] [id number] [address] [place] [address] October, Agoraphobia F40.00 [facility] [address] [place] [id number] [address] [place] [address] Sep, Panic disorder without agora phobia F41.0 ; Agoraphobia F40.00 and Dysthymic disorder F34.1 [facility] [address] [facility] [id number] [address] [place] [address] Sep, Panic attacks F41.0 [facility] [address] [facility] [id number] [address] [place] [address] Sep, [facility] [address] [facility] [id number] [address] [place] [address] Sep, Panic disorder without agora phobia F41.0 ; Varicose veins of both lower extremities I83.93 and Fatigue R53.83 [facility] [address] [facility] [id number] [address] [place] [address] Sep, Fatigue R53.83 [facility] [address] [facility] [id number] [address] [place] [address] 05 Sep, 2015 [facility] [address] [facility] [id number] [address] [place] [address] Aug, [facility] [address] [address] Aug, [place] [address] [address] Aug, Type 2 diabetes mellitus wit h diabetic neuropathic arthropathy E11.610 [place] [address] [address] Aug, Panic disorder without agora phobia F41.0 ; Agoraphobia F40.00 and Dysthymic disorder F34.1 [place] [address] [address] Aug, Shortness of breath R06.02 ; Panic attacks F41.0 ; COPD (chronic obstructive pulmonary disease) J44.9 ; Tobacco abuse Z72.0 ; Family history of diabetes mellitus Z83.3 and Weight gain R63.[address] [address] Aug, [place] [address] [address] Jul, [address] [address] Jun, Onychomycosis B35.1 ; Neurop athy G62.9 and Impaired circulation I99.[address] [address] 09 Mar, 2015 Fissure in skin of foot R23. 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 [place] [address] [address] 18 Feb, 2015 Family history of coronary a rteriosclerosis V17.[address] [address] 15 Feb, 2015 Allergic rhinitis due to darien agnieszka 477.0 ; Unspecified breast screening V76.10 ; Anxiety 300.00 and Family history of coronary arteriosclerosis V17.3 [facility] [address] [id number] [address] [place] [address], [place] [address] Jan, [facility] [address] [id number] [address] [place] [address], [place] [address] Dec, [facility] [address] [id number] [address] [place] [address], [place] [address] Dec, Onychomycosis 110.1 and Skin fissures 709.8 [facility] [address] [id number] [address] [place] [address], [place] [address] Sep, [facility] [address] [id number] [address] [place] [address], [place] [address] Sep, [facility] [address] [id number] [address] [place] [address], [place] [address] Aug, [facility] [address] [id number] [address] [place] [address], [place] [address] Aug, [facility] [address] [id number] [address] [place] [address], [place] [address] Jul, [facility] [address] [id number] [address] [place] [address], [place] [address] Jul, [facility] [address] [id number] [address] [place] [address], [place] [address] Jun, [facility] [address] [id number] [address] [place] [address], [place] [address] Jun, [facility] [address] [id number] [address] [place] [address], [place] [address] Jun, [facility] [address] [id number] [address] [place] [address], [place] [address] Jun, [facility] [address] [id number] [address] [place] [address], [place] [address] Jun, [facility] [address] [id number] [address] [place] [address], [place] [address] May, [facility] [address] [id number] [address] [place] [address], [place] [address] May, [facility] [address] [id number] [address] [place] [address], [place] [address] May, [facility] [address] [id number] [address] [place] [address], [place] [address] May, [facility] [address] [id number] [address] [place] [address], [place] [address] May, [facility] [address] [id number] [address] [place] [address], [place] [address] May, [facility] [address] [id number] [address] [place] [address], [place] [address] May, [facility] [address] [id number] [address] [place] [address], [place] [address] May, [facility] [address] [id number] [address] [place] [address], [place] [address] Apr, [facility] [address] [id number] [address] [place] [address], [place] [address] Apr, [facility] [address] [id number] [address] [place] [address], [place] [address] Apr, [facility] [address] [id number] [address] [place] [address], [place] [address] Apr, [facility] [address] [id number] [address] [place] [address], [place] [address] Apr, [facility] [address] [id number] [address] [place] [address], [place] [address] Apr, [facility] [address] [id number] [address] [place] [address], [place] [address] Apr, [facility] [address] [id number] [address] [place] [address], [place] [address] Apr, [facility] [address] [id number] [address] [place] [address], [place] [address] 07 Apr, 2014 [facility] [address] [id number] [address] [place] [address], [place] [address] Apr, [facility] [address] [id number] [address] [place] [address], [place] [address] Mar, [facility] [address] [id number] [address] [place] [address], [place] [address] Mar, [facility] [address] [id number] [address] [place] [address], [place] [address] Mar, [facility] [address] [id number] [address] [place] [address], [place] [address] Mar, [facility] [address] [id number] [address] [place] [address], [place] [address] Mar, [facility] [address] [id number] [address] [place] [address], [place] [address] Mar, [facility] [address] [id number] [address] [place] [address], [place] [address] Mar, [facility] [address] [id number] [address] [place] [address], [place] [address] Mar, [facility] [address] [id number] [address] [place] [address], [place] [address] Mar, [facility] [address] [id number] [address] [place] [address], [place] [address] Mar, [facility] [address] [id number] [address] [place] [address], [place] [address] Mar, [facility] [address] [id number] [address] [place] [address], [place] [address] Mar, [facility] [address] [id number] [address] [place] [address], [place] [address] Mar, [facility] [address] [id number] [address] [place] [address], [place] [address] Mar, [facility] [address] [id number] [address] [place] [address], [place] [address] 22 Mar, 2013 [facility] [address] [id number] [address] [place] [address], [place] [address] 20 Mar, 2013 [facility] [address] [id number] [address] [place] [address], [place] [address] 20 Mar, 2013 [facility] [address] [id number] [address] [place] [address], [place] [address] 16 Mar, 2013 [facility] [address] [id number] [address] [place] [address], [place] [address] 16 Mar, 2013 [facility] [address] [id number] [address] [place] [address], [place] [address] 15 Mar, 2014 [facility] [address] [id number] [address] [place] [address], [place] [address] 14 Mar, 2014 [facility] [address] [id number] [address] [place] [address], [place] [address] 14 Mar, 2014 [facility] [address] [id number] [address] [place] [address], [place] [address] 14 Mar, 2014 [facility] [address] [id number] [address] [place] [address], [place] [address] 14 Mar, 2013 [facility] [address] [id number] [address] [place] [address], [place] [address] 09 Mar, 2013 [facility] [address] [id number] [address] [place] [address], [place] [address] 09 Mar, 2013 [facility] [address] [id number] [address] [place] [address], [place] [address] Mar, [facility] [address] [id number] [address] [place] [address], [place] [address] Mar, 2013 [facility] [address] [id number] [address] [place] [address], [place] [address] 30 Feb, 2014 [facility] [address] [id number] [address] [place] [address], [place] [address] 30 Feb, 2013 [facility] [address] [id number] [facility] [place] [address] 30 Feb, 2013 [facility] [address] [id number] [address] [place] [address], [place] [address] 30 Feb, 2013 [facility] [address] [id number] [address] [place] [address], [place] [address] Feb, 2013 [facility] [address] [id number] [address] [place] [address], [place] [address] Feb, 2013 [facility] [address] [id number] [address] [place] [address], [place] [address] Feb, 2013 [facility] [address] [id number] [address] [place] [address], [place] [address] Feb, 2013 [facility] [address] [id number] [address] [place] [address], [place] [address] Feb, 2013 [facility] [address] [id number] [address] [place] [address], [place] [address] Feb, 2013 [facility] [address] [id number] [address] [place] [address], [place] [address] Feb, 2013 [facility] [address] [id number] [address] [place] [address], [place] [address] Feb, 2013 [facility] [address] [id number] [address] [place] [address], [place] [address] Jan, [facility] [address] [id number] [address] [place] [address], [place] [address] Jan, [facility] [address] [id number] [address] [place] [address], [place] [address] Jan, [facility] [address] [id number] [address] [place] [address], [place] [address] Jan, [facility] [address] [id number] [address] [place] [address], [place] [address] Jan, [facility] [address] [id number] [facility] [place] [address] Jan, [facility] [address] [id number] [facility] [place] [address] Jan, [facility] [address] [id number] [facility] [place] [address] Jan, [facility] [address] [id number] [address] [place] [address], [place] [address] Jan, [facility] [address] [id number] [address] [place] [address], [place] [address] Jan, [facility] [address] [id number] [address] [place] [address], [place] [address] Jan, [facility] [address] [id number] [address] [place] [address], [place] [address] Jan, [facility] [address] [id number] [address] [place] [address], [place] [address] Jan, [facility] [address] [id number] [address] [place] [address], [place] [address] Dec, [facility] [address] [id number] [address] [place] [address], [place] [address] Dec, [facility] [address] [id number] [address] [place] [address], [place] [address] Dec, [facility] [address] [id number] [address] [place] [address], [place] [address] Dec, [facility] [address] [id number] [address] [place] [address], [place] [address] Dec, [facility] [address] [id number] [address] [place] [address], [place] [address] Dec, [facility] [address] [id number] [address] [place] [address], [place] [address] Dec, [facility] [address] [id number] [address] [place] [address], [place] [address] Dec, [facility] [address] [id number] [address] [place] [address], [place] [address] Dec, 2013 [facility] [address] [id number] [address] [place] [address], [place] [address] Dec, 2013 [facility] [address] [id number] [address] [place] [address], [place] [address] Dec, 2013 [facility] [address] [id number] [address] [place] [address], [place] [address] Dec, 2013 [facility] [address] [id number] [address] [place] [address], [place] [address] Dec, 2013 [facility] [address] [id number] [address] [place] [address], [place] [address] Dec, 2013 [facility] [address] [id number] [address] [place] [address], [place] [address] Dec, 2013 [facility] [address] [id number] [address] [place] [address], [place] [address] Dec, 2013 [facility] [address] [id number] [address] [place] [address], [place] [address] Dec, [facility] [address] [id number] [address] [place] [address], [place] [address] Dec, [facility] [address] [id number] [address] [place] [address], [place] [address] Nov, [facility] [address] [id number] [address] [place] [address], [place] [address] Nov, [facility] [address] [id number] [address] [place] [address], [place] [address] Nov, [facility] [address] [id number] [address] [place] [address], [place] [address] Nov, [facility] [address] [id number] [address] [place] [address], [place] [address] 16 Nov, 2013 [facility] [address] [id number] [address] [place] [address], [place] [address] Nov, [facility] [address] [id number] [facility] [place] [address] Nov, [facility] [address] [id number] [address] [place] [address], [place] [address] Nov, [facility] [address] [id number] [address] [place] [address], [place] [address] Nov, [facility] [address] [id number] [address] [place] [address], [place] [address] Nov, [facility] [address] [id number] [address] [place] [address], [place] [address] Nov, [facility] [address] [id number] [address] [place] [address], [place] [address] Nov, [facility] [address] [id number] [address] [place] [address], [place] [address] Nov, [facility] [address] [id number] [address] [place] [address], [place] [address] Nov, [facility] [address] [id number] [address] [place] [address], [place] [address] Nov, [facility] [address] [id number] [address] [place] [address], [place] [address] Nov, [facility] [address] [id number] [address] [place] [address], [place] [address] Nov, [facility] [address] [id number] [address] [place] [address], [place] [address] Nov, [facility] [address] [id number] [address] [place] [address], [place] [address] Nov, [facility] [address] [id number] [address] [place] [address], [place] [address] Nov, [facility] [address] [id number] [address] [place] [address], [place] [address] October, [facility] [address] [id number] [facility] [place] [address] October, [facility] [address] [id number] [address] [place] [address], [place] [address] October, [facility] [address] [id number] [address] [place] [address], [place] [address] October, [facility] [address] [id number] [address] [place] [address], [place] [address] Sep, [facility] [address] [id number] [address] [place] [address], [place] [address] Sep, [facility] [address] [id number] [address] [place] [address], [place] [address] Sep, [facility] [address] [id number] [address] [place] [address], [place] [address] Sep, [facility] [address] [id number] [address] [place] [address], [place] [address] Sep, [facility] [address] [id number] [address] [place] [address], [place] [address] Sep, [facility] [address] [id number] [address] [place] [address], [place] [address] Sep, [facility] [address] [id number] [address] [place] [address], [place] [address] Sep, [facility] [address] [id number] [address] [place] [address], [place] [address] Sep, [facility] [address] [id number] [address] [place] [address], [place] [address] Aug, [facility] [address] [id number] [address] [place] [address], [place] [address] Aug, [facility] [address] [id number] [address] [place] [address], [place] [address] Aug, [facility] [address] [id number] [address] [place] [address], [place] [address] Aug, [facility] [address] [id number] [facility], [place] [address] Aug, [facility] [address] [id number] [facility] [place] [address] Aug, [facility] [address] [id number] [facility] [place] [address] Aug, [facility] [address] [id number] [address] [place] [address], [place] [address] Aug, [facility] [address] [id number] [address] [place] [address], [place] [address] Jul, [facility] [address] [id number] [address] [place] [address], [place] [address] Jul, [facility] [address] [id number] [address] [place] [address], [place] [address] Jun, [facility] [address] [id number] [address] [place] [address], [place] [address] Jun, [facility] [address] [id number] [address] [place] [address], [place] [address] Jun, [facility] [address] [id number] [address] [place] [address], [place] [address] Jun, [facility] [address] [id number] [address] [place] [address], [place] [address] Jun, [facility] [address] [id number] [address] [place] [address], [place] [address] Jun, [facility] [address] [id number] [address] [place] [address], [place] [address] Jun, [facility] [address] [id number] [address] [place] [address], [place] [address] Jun, [facility] [address] [id number] [address] [place] [address], [place] [address] Jun, [facility] [address] [id number] [address] [place] [address], [place] [address] 14 Jun, 2013 [facility] [address] [id number] [address] [place] [address], [place] [address] Jun, [facility] [address] [id number] [address] [place] [address], [place] [address] Jun, [facility] [address] [id number] [address] [place] [address], [place] [address] 31 May, 2013 [facility] [address] [id number] [address] [place] [address], [place] [address] 31 May, 2013 [facility] [address] [id number] [address] [place] [address], [place] [address] May, [facility] [address] [id number] [address] [place] [address], [place] [address] May, [facility] [address] [id number] [address] [place] [address], [place] [address] 31 May, 2013 [facility] [address] [id number] [address] [place] [address], [place] [address] 31 May, 2013 [facility] [address] [id number] [address] [place] [address], [place] [address] 26 May, 2013 [facility] [address] [id number] [address] [place] [address], [place] [address] 23 May, 2013 [facility] [address] [id number] [address] [place] [address], [place] [address] 23 May, 2013 [facility] [address] [id number] [address] [place] [address], [place] [address] 16 May, 2013 [facility] [address] [id number] [address] [place] [address], [place] [address] 16 May, 2013 [facility] [address] [id number] [address] [place] [address], [place] [address] 16 May, 2013 [facility] [address] [id number] [address] [place] [address], [place] [address] May, [facility] [address] [id number] [address] [place] [address], [place] [address] Apr, [facility] [address] [id number] [address] [place] [address], [place] [address] Apr, [facility] [address] [id number] [address] [place] [address], [place] [address] Mar, [facility] [address] [id number] [address] [place] [address], [place] [address] Mar, [facility] [address] [id number] [address] [place] [address], [place] [address] Feb, [facility] [address] [id number] [address] [place] [address], [place] [address] Feb, [facility] [address] [id number] [address] [place] [address], [place] [address] Feb, [facility] [address] [id number] [address] [place] [address], [place] [address] Feb, [facility] [address] [id number] [address] [place] [address], [place] [address] Jan, [facility] [address] [id number] [address] [place] [address], [place] [address] Jan, [facility] [address] [id number] [address] [place] [address], [place] [address] Jan, [facility] [address] [id number] [address] [place] [address], [place] [address] Jan, [facility] [address] [id number] [address] [place] [address], [place] [address] Jan, [facility] [address] [id number] [address] [place] [address], [place] [address] Jan, [facility] [address] [id number] [address] [place] [address], [place] [address] Dec, [facility] [address] [id number] [address] [place] [address], [place] [address] Dec, [facility] [address] [id number] [address] [place] [address], [place] [address] Dec, [facility] [address] [id number] [address] [place] [address], [place] [address] Dec, [facility] [address] [id number] [address] [place] [address], [place] [address] Nov, [facility] [address] [id number] [address] [place] [address], [place] [address] October, [facility] [address] [id number] [address] [place] [address], [place] [address] October, [facility] [address] [id number] [address] [place] [address], [place] [address] October, [facility] [address] [id number] [address] [place] [address], [place] [address] Sep, [facility] [address] [id number] [address] [place] [address], [place] [address] Sep, [facility] [address] [id number] [address] [place] [address], [place] [address] Jun, [facility] [address] [id number] [address] [place] [address], [place] [address] Jun, [facility] [address] [id number] [address] [place] [address], [place] [address] Jun, [facility] [address] [id number] [address] [place] [address], [place] [address] Apr, [facility] [address] [id number] [address] [place] [address], [place] [address] Apr, [facility] [address] [id number] [address] [place] [address], [place] [address] Apr, [facility] [address] [id number] [address] [place] [address], [place] [address] Apr, [facility] [address] [id number] [address] [place] [address], [place] [address] Mar, [facility] [address] [id number] [address] [place] [address], [place] [address] Mar, [facility] [address] [id number] [address] [place] [address], [place] [address] Mar, [facility] [address] [id number] [address] [place] [address], [place] [address] Mar, [facility] [address] [id number] [address] [place] [address], [place] [address] Feb, [facility] [address] [id number] [address] [place] [address], [place] [address] Feb, [facility] [address] [id number] [address] [place] [address], [place] [address] Feb, [facility] [address] [id number] [address] [place] [address], [place] [address] Jan, [facility] [address] [id number] [address] [place] [address], [place] [address] Jan, [facility] [address] [id number] [address] [place] [address], [place] [address] Jan, [facility] [address] [id number] [address] [place] [address], [place] [address] Jan, [facility] [address] [id number] [address] [place] [address], [place] [address] Dec, [facility] [address] [id number] [address] [place] [address], [place] [address] Dec, [facility] [address] [id number] [address] [place] [address], [place] [address] Nov, [facility] [address] [id number] [address] [place] [address], [place] [address] Nov, [facility] [address] [id number] [address] [place] [address], [place] [address] October, [facility] [address] [id number] [address] [place] [address], [place] [address] October, [facility] [address] [id number] [address] [place] [address], [place] [address] October, [facility] [address] [id number] [address] [place] [address], [place] [address] Sep, [facility] [address] [id number] [address] [place] [address], [place] [address] Sep, [facility] [address] [id number] [address] [place] [address], [place] [address] Sep, [facility] [address] [id number] [address] [place] [address], [place] [address] Aug, [facility] [address] [id number] [address] [place] [address], [place] [address] Aug, [facility] [address] [id number] [address] [place] [address], [place] [address] Aug, [facility] [address] [id number] [address] [place] [address], [place] [address] Aug, [facility] [address] [id number] [address] [place] [address], [place] [address] Aug, [facility] [address] [id number] [address] [place] [address], [place] [address] Jul, [facility] [address] [id number] [address] [place] [address], [place] [address] 16 Jul, 2011 [facility] [address] [id number] [address] [place] [address], [place] [address] Jul, [facility] [address] [id number] [address] [place] [address], [place] [address] Jul, [facility] [address] [id number] [address] [place] [address], [place] [address] Jul, [facility] [address] [id number] [address] [place] [address], [place] [address] 06 Jul, 2011 [facility] [address] [id number] [address] [place] [address], [place] [address] Jul, [facility] [address] [id number] [address] [place] [address], [place] [address] Jul, [facility] [address] [id number] [address] [place] [address], [place] [address] Jun, [facility] [address] [id number] [address] [place] [address], [place] [address] Jun, [facility] [address] [id number] [address] [place] [address], [place] [address] May, [facility] [address] [id number] [address] [place] [address], [place] [address] May, [facility] [address] [id number] [address] [place] [address], [place] [address] May, [facility] [address] [id number] [address] [place] [address], [place] [address] May, [facility] [address] [id number] [address] [place] [address], [place] [address] Apr, [facility] [address] [id number] [address] [place] [address], [place] [address] Apr, [facility] [address] [id number] [address] [place] [address], [place] [address] Apr, [facility] [address] [id number] [address] [place] [address], [place] [address] Mar, [facility] [address] [id number] [address] [place] [address], [place] [address] Mar, [facility] [address] [id number] [address] [place] [address], [place] [address] Mar, [facility] [address] [id number] [address] [place] [address], [place] [address] Mar, [facility] [address] [id number] [address] [place] [address] Dec, [facility] [address] [id number] [address] [place] [address] October, [facility] [address] [id number] [address] [place] [address] May, [facility] [address] [id number] [address] [place] [address] May, [facility] [address] [id number] [address] [place] [address] May, [facility] [address] [id number] [address] [place] [address] May, [facility] [address] [id number] [address] [place] [address] Mar, [facility] [address] [id number] [address] [place] [address] Mar, [facility] [address] [id number] [address] [place] [address] May, [facility] [address] [id number] [address] [place] [address] May, [facility] [address] [id number] [address] [place] [address] May, [facility] [address] [id number] [address] [place] [address] May, [facility] [address] [id number] [address] [place] [address] Apr, [facility] [address] [id number] [address] [place] [address] Apr, [facility] [address] [id number] [address] [place] [address] October, IMMUNIZATIONS No Known Immunizations SOCIAL HISTORY Never Assessed REASON FOR VISIT PLAN OF CARE VITAL SIGNS Height 64 in 2011-12-05 Weight 238.5 lbs 2011-12-05 Temperature 98.3 degrees Fahrenheit 2011-12-05 Heart Rate 76 bpm 2011-12-05 Respiratory Rate 20 2011-12-05 Blood pressure systolic 140 mmHg 2011-12-05 Blood pressure diastolic 92 mmHg 2011-12-05 MEDICATIONS Unknown Medications RESULTS No Results PROCEDURES [...] arthroscopy Surgical History hysterectomy, total with bilateral salpi ayers-oophorectomy (BSO) Surgical History left rotator cuff surgery 05/17/2017 Surgical History colonoscopy 01/30/2014 Hospitalization History Surgeries only Hospitalization History hypotension, dizziness--[facility] 6 Hospitalization History Colonoscopy 01/30/2014 Hospitalization History pneumonia 01/2019
--- OUTSIDE RECORDS SUMMARY | 2020-01-13 11:35 | XMS REPORT ---
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 Name Role Phone RASHEED RAHMAN Unavailable PROBLEMS Type Condition ICD9-CM Code OWA79-SV Code Onset Dates Condition S tatus SNOMED Code Problem Snoring R06.83 Active 33781663 Problem MRSA (methicillin resistant staph aureus) culture positive Z22.322 Active 622797083 Problem History of illicit drug use Z87.898 Ac tive 413626303 Problem Dysthymic disorder F34.1 Active 7 3764966 Problem Impaired circulation I99.9 Active 68950402 Problem Panic disorder without agoraphobia F41.0 Active 57524908 Problem Agoraphobia F40.00 Active 73925183 Problem Psychotic disorder F29 Active 6 2698861 Problem Mood disorder F39 Active 186214 05 Problem On home oxygen therapy Z99.81 Active 225832265869 Problem Mild chronic obstructive pulmonary disease J44.9 Active 586480508 Problem Neuropathy G62.9 Active 324886141 Problem Essential hypertension I10 Active 59887681 Problem Major depressive disorder, recurrent episode, moderate F33.1 Active 444348758 Problem 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 Active 131049 02 Problem Arthritis M19.90 Active 7733953 Problem 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 Active 481280592 Problem Hypertension, benign I10 Active 70328807 Problem Onychomycosis B35.1 Active 094938 008 Problem Major depressive disorder in full remission F32.5 Active 81555756 Problem Sciatica, left side M54.32 Active 52965611 Problem Varicose veins of both lower extremities I83.93 Active 36458577 Problem COPD exacerbation J44.1 Active 19 0860099 Problem Fatigue R53.83 Active 58090429 Problem Mild persistent asthma without complication J45.30 Active 333469888 Problem Slow transit constipation K59.01 Acti ve 28580650 Problem Chronic obstructive pulmonary disease, unspecified COPD ty pe J44.9 Active 59086574 Problem Body mass index (BMI) 40.0-44.9, adult Z68.41 Active 087390287 Problem Unspecified psychosis not du e to a substance or known physiological condition F29 Active 537553425 ALLERGIES No Information ENCOUNTERS Encounter Location Date Diagnosis [facility] [address] [facility] [id number] [address] [place] [address] Jan, [facility] [address] [facility] [id number] [address] [place] [address] Dec, [facility] [address] [facility] [id number] [address] [place] [address] Dec, [facility] [address] [place] [id number] [place] [address] Dec, [facility] [address] [place] [id number] [place] [address] Dec, [facility] [address] [facility] [id number] [address] [place] [address] Dec, Abdominal pain, right upper quadrant R10.11 [place] [address] [facility] [id number] [address] [place] [address] Dec, [facility] [address] [facility] [id number] [address] [place] [address] Dec, [facility] [address] [facility] [id number] [address] [place] [address] Dec, Acute cystitis without hemat uria N30.00 [facility] [address] [facility] [id number] [address] [place] [address] Nov, Major depressive disorder, r ecurrent episode, moderate F33.1 ; Panic disorder without agoraphobia F41.0 and Morbid obesity E66.01 [facility] [address] [facility] [id number] [address] [place] [address] Nov, Major depressive disorder, r ecurrent episode, moderate F33.1 and Panic disorder without agoraphobia F41.0 [facility] [address] [facility] [id number] [address] [place] [address] Nov, [facility] [address] [facility] [id number] [address] [place] [address] 23 Nov, 2019 [facility] [address] [facility] [id number] [address] [place] [address] 12 Nov, 2019 COPD exacerbation J44.1 ; Ex posure to viral disease Z20.828 ; Sore throat J02.9 and Community acquired pneumonia of right lower lobe of lung J18.9 [place] [address] [facility] [id number] [address] [place] [address] Nov, Essential hypertension I10 [place] [address] [facility] [id number] [address] [place] [address] 12 Nov, 2019 [facility] [id number] [place] [phone] Nov, 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 arthropathy E11.610 [place] [address] [facility] [id number] [address] [place] [address] 10 Nov, 2019 Abdominal pain, right upper quadrant R10.11 [place] [address] [facility] [id number] [address] [place] [address] October, Major depressive disorder, r ecurrent episode, moderate F33.1 and Panic disorder without agoraphobia F41.0 [place] [address] [facility] [id number] [address] [place] [address] October, Abdominal pain, right upper quadrant R10.11 [place] [address] [facility] [id number] [address] [place] [address] Sep, [facility] [id number] [place] [address] Sep, [place] [address] [address] 15 Sep, 2019 Abdominal pain, right upper quadrant R10.11 [place] [address] [address] 06 Sep, 2019 Panic disorder without agora phobia F41.0 ; Major depressive disorder, recurrent episode, moderate F33.1 and Morbid obesity E66.01 [place] [address] [address] Aug, Bronchitis J40 [place] [address] [address] Aug, Sciatica, left side M54.32 a nd Morbid obesity E66.01 [place] [address] [address] Aug, [place] [address] [address] Aug, Sciatica, left side M54.32 [place] [address] [address] Aug, Neuropathy G62.9 ; Onychomyc osis B35.1 ; Callus of foot L84 and Skin fissures R23.4 [place] [address] [address] Jul, [place] [address] [address] Jul, Morbid obesity E66.01 [place] [address] [address] Jul, Unspecified psychosis not du e to a substance or known physiological condition F29 ; Chronic obstructive pulmonary disease, unspecified COPD type J44.9 and Body mass index (BMI) 40.0-44.9, adult Z68.41 [place] [address] [address] Jun, [facility] [address] [facility] [id number] [address] [place] [address] Jun, Morbid obesity E66.01 [place] [address] [facility] [id number] [address] [place] [address] May, Morbid obesity E66.01 [place] [address] [place] [id number] [place] [address] May, Encounter for immunization Z 23 [place] [address] [facility] [id number] [address] [place] [address] May, Major depressive disorder, r ecurrent episode, moderate F33.1 ; Panic disorder without agoraphobia F41.0 and Morbid obesity E66.01 [place] [address] [place] [id number] [place] [address] May, Major depressive disorder in full remission F32.5 and Panic disorder without agoraphobia F41.0 [place] [address] [place] [id number] [place] [address] Apr, Morbid obesity E66.01 [place] [address] [place] [id number] [place] [address] Apr, Slow transit constipation K5 9.01 and Cellulitis of left lower extremity L03.116 [place] [address] [place] [id number] [place] [address] Apr, Morbid obesity E66.01 [place] [address] [facility] [id number] [address] [place] [address] Apr, [place] [address] [place] [id number] [place] [address] Apr, Major depressive disorder, r ecurrent episode, moderate F33.1 and Panic disorder without agoraphobia F41.0 [place] [address] [place] [id number] [place] [address] Mar, Viral upper respiratory trac t infection J06.9 [place] [address] [place] [id number] [place] [address] 10 Mar, 2019 Bronchitis J40 and Encounter for immunization Z23 [place] [address] [place] [id number] [place] [address] 08 Mar, 2019 Morbid obesity E66.01 [place] [address] [address] 11 Feb, 2019 Major depressive disorder, r ecurrent episode, moderate F33.1 and Panic disorder without agoraphobia F41.0 [place] [address] [place] [id number] [place] [address] 10 Feb, 2019 Morbid obesity E66.01 [place] [address] [place] [id number] [place] [address] 06 Feb, 2019 Onychomycosis B35.1 ; Type 2 diabetes mellitus with diabetic neuropathic arthropathy E11.610 and Xerosis of skin L85.3 [place] [address] [place] [id number] [place] [address] 04 Feb, 2019 Major depressive disorder, r ecurrent episode, moderate F33.1 ; Panic disorder without agoraphobia F41.0 and Morbid obesity E66.01 [place] [address] [place] [id number] [place] [address] Jan, Major depressive disorder in full remission F32.5 and Panic disorder without agoraphobia F41.0 [place] [address] [place] [id number] [place] [address] Jan, Pneumonia of both lower lobe s due to infectious organism J18.1 and Morbid obesity E66.01 [place] [address] [place] [id number] [place] [address] Jan, [place] [address] [place] [id number] [place] [address] Jan, Major depressive disorder in full remission F32.5 and Panic disorder without agoraphobia F41.0 [place] [address] [facility] [id number] [address] [place] [address] Jan, [facility] [address] [place] [id number] [place] [address] Jan, Major depressive disorder, r ecurrent episode, moderate F33.1 ; Panic disorder without agoraphobia F41.0 and Morbid obesity E66.01 [facility] [address] [place] [id number] [place] [address] Dec, Bilious vomiting with nausea R11.14 ; Coughing R05 and Choking, subsequent encounter T17.308D [place] [address] [place] [id number] [place] [address] Dec, Morbid obesity E66.01 [place] [address] [place] [id number] [place] [address] Dec, Major depressive disorder, r ecurrent episode, moderate F33.1 and Panic disorder without agoraphobia F41.0 [place] [address] [place] [id number] [place] [address] Dec, [facility] [address] [place] [id number] [place] [address] Dec, Major depressive disorder, r ecurrent episode, moderate F33.1 [place] [address] [place] [id number] [place] [address] Nov, Major depressive disorder, r ecurrent episode, moderate F33.1 ; Panic disorder without agoraphobia F41.0 and Morbid obesity E66.01 [facility] [address] [facility] [id number] [address] [place] [address] Nov, Morbid obesity E66.01 [facility] [address] [place] [id number] [place] [address] Nov, Major depressive disorder, r ecurrent episode, moderate F33.1 and Panic disorder without agoraphobia F41.0 [facility] [address] [place] [id number] [place] [address] 18 Nov, 2018 Allergic reaction, initial e ncounter T78.40XA and Morbid obesity E66.01 [place] [address] [facility] [id number] [address] [place] [address] Nov, [place] [address] [address] 13 Nov, 2018 Morbid obesity E66.01 ; Swal lowing problem R13.10 and Hypertension, benign I10 [facility] [address] [place] [id number] [place] [address] 07 Nov, 2018 Morbid obesity E66.01 ; COPD exacerbation J44.1 and Non- recurrent acute suppurative otitis media of left ear without spontaneous rupture of tympanic membrane H66.002 [place] [address] [address] Nov, Onychomycosis B35.1 ; Neurop athy G62.9 and Fissure in skin of foot R23.4 [place] [id number] [place] [address] October, Major depressive disorder, r ecurrent episode, moderate F33.1 ; Panic disorder without agoraphobia F41.0 and Morbid obesity E66.01 [facility] [address] [place] [id number] [place] [address] October, Viral upper respiratory trac t infection J06.9 [place] [address] [place] [id number] [place] [address] October, [place] [address] [address] October, Major depressive disorder, r ecurrent episode, moderate F33.1 and Panic disorder without agoraphobia F41.0 [place] [id number] [place] [address] October, [place] [address] [place] [id number] [address] [place] [address] October, [facility] [address] [facility] [id number] [address] [place] [address] October, [facility] [address] [facility] [id number] [address] [place] [address] October, [facility] [address] [facility] [id number] [address] [place] [address] October, [facility] [address] [facility] [id number] [address] [place] [address] October, [facility] [address] [facility] [id number] [address] [place] [address] October, Major depressive disorder, r ecurrent episode, moderate F33.1 and Panic disorder without agoraphobia F41.0 [facility] [address] [facility] [id number] [address] [place] [address] Sep, Morbid obesity E66.01 and Vane mbar neuritis M54.16 [facility] [address] [facility] [id number] [address] [place] [address] Sep, Panic disorder without agora phobia F41.0 and Major depressive disorder, recurrent episode, moderate F33.1 [facility] [address] [facility] [id number] [address] [place] [address] Sep, Gastroenteritis K52.9 ; Low back pain M54.5 ; Other chronic pain G89.29 and Morbid obesity E66.01 [facility] [address] [facility] [id number] [address] [place] [address] Sep, Major depressive disorder, r ecurrent episode, moderate F33.1 ; Panic disorder without agoraphobia F41.0 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 [facility] [address] [facility] [id number] [address] [place] [address] Sep, Panic disorder without agora phobia F41.0 [facility] [address] [facility] [id number] [address] [place] [address] Sep, Panic disorder without agora phobia F41.0 [place] [address] [address] Aug, Panic disorder without agora phobia F41.0 ; Major depressive disorder, recurrent episode, moderate F33.1 ; 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 ; Psychotic disorder F29 ; Tardive dyskinesia G24.01 and Morbid obesity E66.01 [place] [address] [address] Aug, Dysthymic disorder F34.1 and Psychotic disorder F29 [place] [address] [address] Aug, Encounter for Medicare 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 [place] [address] [address] Aug, Dysthymic disorder F34.1 and Psychotic disorder F29 [place] [address] [address] Aug, Neuropathy G62.9 ; Onychomyc osis B35.1 and Xerosis of skin L85.3 [place] [address] [address] Jul, [place] [address] [address] Jul, Mood disorder F39 ; Wheezing R06.2 ; Choking, initial encounter T17.308A and Coughing R05 [place] [address] [address] 07 Jul, 2018 Low back pain M54.5 [facility] [address] [place] [id number] [address] [place] [address] Jun, Flu-like symptoms R68.89 ; B SC 45.0-49.9, adult Z68.42 ; COPD exacerbation J44.1 and Acute bronchitis J20.9 [place] [address] [address] Jun, [place] [address] [address] May, [place] [address] [address] May, Onychomycosis B35.1 and 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 [place] [address] [address] 17 May, 2018 Low back pain M54.5 and Abdoulaye a leg R60.0 [place] [address] [address] 11 May, 2018 BMI 45.0-49.9, adult Z68.42 ; Well woman exam with routine gynecological exam Z01.419 and Breast cancer screening Z12.31 [place] [address] [address] 19 Apr, 2018 Arthritis M19.90 [place] [address] [address] 16 Apr, 2018 Arthritis M19.90 and Otalgia of both ears H92.03 [place] [address] [address] Feb, [place] [address] [address] 28 Feb, 2018 Low back pain M54.5 ; Other chronic pain G89.29 ; Exertional asthma J45.990 and Encounter for immunization Z23 [place] [address] [place] [id number] [address] [place] [address] Feb, Skin fissures R23.4 ; Neurop athy G62.9 and Onychomycosis B35.1 [place] [address] [address] 05 Feb, 2018 Dysthymic disorder F34.1 [place] [address] [address] Feb, [place] [address] [address] Jan, [place] [address] [address] Jan, Abrasion of right elbow, ini tial encounter S50.311A ; Abrasion, right knee, initial encounter S80.211A and Sprain of other ligament of right ankle, initial encounter S93.491A [place] [address] [address] Jan, [facility] [address] [address] Jan, Injury of left ankle, initia l encounter S99.912A ; Fall down stairs, initial encounter W10.8XXA and BMI 45.0-49.9, adult Z68.42 [place] [address] [address] Jan, COPD exacerbation J44.1 [place] [address] [address] Jan, 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 [place] [address] [address] Jan, Bronchitis J40 and Acute sup purative otitis media of left ear without spontaneous rupture of tympanic membrane, recurrence not specified H66.002 [place] [address] [address] Jan, [place] [address] [address] Jan, Bronchitis J40 and BMI 40.0- 44.9, adult Z68.41 [place] [address] [address] Jan, [place] [address] [address] Dec, Gastric pain R10.9 [place] [address] [address] Dec, [place] [address] [address] Dec, History of illicit drug use Z87.898 ; Neuropathy G62.9 ; COPD (chronic obstructive pulmonary disease) with chronic bronchitis J44.9 and Acute pain of right knee M25.561 [place] [address] [address] Nov, [place] [address] [address] Nov, Onychomycosis B35.1 and Cont usion of left foot, subsequent encounter S90.32XD [place] [address] [address] Nov, COPD exacerbation J44.1 [place] [address] [address] Sep, [place] [address] [address] Sep, Dysthymic disorder F34.1 ; T obacco abuse Z72.0 ; Pain in right knee M25.561 ; Pain in left knee M25.562 ; Other chronic pain G89.29 and BMI 40.0- 44.9, adult Z68.41 [place] [address] [address] Aug, Major depressive disorder, r ecurrent episode, moderate F33.1 and 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 [place] [address] [place] [address] 14 Aug, 2017 Dysthymic disorder F34.1 ; N on-pressure chronic ulcer of left thigh, unspecified ulcer stage L97.129 ; Tobacco abuse Z72.0 ; Mild chronic obstructive pulmonary disease J44.9 and Forgetfulness R68.89 [place] [address] [address] 09 Aug, 2017 Onychomycosis B35.1 ; Fissur e in skin of foot R23.4 and Foot callus L84 [facility] [address] [address] Jul, Right medial knee pain M25.5 61 ; Upper respiratory tract infection, unspecified type J06.9 and BMI 40.0-44.9, adult Z68.41 [facility] [place] [address] [address] Jul, Nausea and vomiting, intract ability of vomiting not specified, unspecified vomiting type R11.2 ; Left ear pain H92.02 and Gastric pain R10.9 [place] [address] [address] Apr, Encounter for immunization Z 23 [place] [address] [address] Apr, Onychomycosis B35.1 ; Xerosi s of skin L85.3 ; Neuropathy G62.9 and 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 [address] [facility] [id number] [address] [place] [id number] Aug, [facility] [address] [facility] [id number] [address] [place] [id number] Aug, [facility] [address] [facility] [id number] [address] [place] [id number] Jul, [facility] [address] [facility] [id number] [address] [place] [id number] Jul, [facility] [address] [facility] [id number] [address] [place] [address] Jul, Decubitus ulcer of left thig h, stage [address] [facility] [address] [facility] [id number] [address] [place] [address] Jul, Decubitus ulcer of left thig h, stage [address] [facility] [address] [facility] [id number] [address] [place] [address] Jul, [facility] [address] [facility] [id number] [address] [place] [address] 15 Jul, 2016 Decubitus ulcer of left thig h, stage [address] [facility] [address] [facility] [id number] [address] [place] [address] [address], [address] [facility] [address] [facility] [id number] [address] [place] [address] 13 Jul, 2016 Cellulitis of other specifie d site L03.818 ; Illicit drug use F19.90 and Decubitus ulcer of left thigh, stage [address] [facility] [address] [facility] [id number] [address] [place] [address] [address], [address] [facility] [address] [facility] [id number] [address] [place] [address] Jul, Cellulitis of right breast N 61.0 [facility] [address] [facility] [id number] [address] [place] [address] Jun, [facility] [address] [id number] [address] [place] [address] Jun, [facility] [address] [facility] [id number] [address] [place] [address] Jun, Wheezing R06.2 and Arthralgi a, unspecified joint M25.50 [facility] [address] [id number] [address] [place] [address] May, [facility] [address] [facility] [id number] [address] [place] [address] May, [facility] [address] [facility] [id number] [address] [place] [address] May, [facility] [address] [facility] [id number] [address] [place] [address] 05 May, 2016 Shortness of breath R06.02 [facility] [address] [facility] [id number] [address] [place] [address] May, Onychomycosis B35.1 and Fiss ure in skin of foot R23.4 [facility] [address] [facility] [id number] [address] [place] [address] 28 Apr, 2016 [facility] [address] [facility] [id number] [address] [place] [address] 18 Apr, [address] [facility] [address] [facility] [id number] [address] [place] [address] 14 Apr, 2016 Shortness of breath R06.02 ; Essential hypertension I10 ; Dizziness R42 and On home oxygen therapy Z99.81 [facility] [address] [facility] [id number] [address] [place] [address] [address], [address] [facility] [address] [facility] [id number] [address] [place] [address] [address], [address] [facility] [address] [id number] [address] [place] [address] Apr, [facility] [address] [id number] [address] [place] [address] Apr, [facility] [address] [id number] [address] [place] [address] Apr, [facility] [address] [id number] [address] [place] [address] Apr, [facility] [address] [id number] [address] [place] [address] Apr, [facility] [address] [id number] [address] [place] [address] Mar, Mild chronic obstructive pul monary disease J44.9 [facility] [address] [id number] [address] [place] [address] Mar, [facility] [address] [id number] [address] [place] [address] Mar, Epigastric pain R10.13 ; Low back pain M54.5 ; Other chronic pain G89.29 and Breast cancer screening Z12.39 [facility] [address] [id number] [address] [place] [address] Mar, [facility] [address] [id number] [address] [place] [address] Mar, [facility] [address] [id number] [address] [place] [address] Feb, [facility] [address] [id number] [address] [place] [address] [address], [address] [facility] [address] [facility] [id number] [address] [place] [address] 02 Feb, 2016 Fissure in skin of foot R23. [address] [facility] [address] [id number] [address] [place] [address] Jan, Agoraphobia F40.00 [facility] [address] [facility] [id number] [address] [place] [address] Dec, Agoraphobia F40.00 [facility] [address] [facility] [id number] [address] [place] [address] Dec, Mild persistent asthma witho ut complication J45.30 ; Dysthymic disorder F34.1 and Upper respiratory tract infection, unspecified type J06.9 [facility] [address] [facility] [id number] [address] [place] [address] Nov, Agoraphobia F40.00 [facility] [address] [facility] [id number] [address] [place] [address] October, Agoraphobia F40.00 [facility] [address] [facility] [id number] [address] [place] [address] Sep, Panic disorder without agora phobia F41.0 ; Agoraphobia F40.00 [address]hymic disorder F34.1 [facility] [address] [facility] [id number] [address] [place] [address] Sep, Panic attacks F41.0 [facility] [address] [facility] [id number] [address] [place] [address] Sep, [facility] [address] [facility] [id number] [address] [place] [address] Sep, Panic disorder without agora phobia F41.0 ; Varicose veins of both lower extremities I83.[address] [facility] [address] [facility] [id number] [address] [place] [address] Sep, Fatigue R53.83 [facility] [address] [facility] [id number] [address] [place] [address] [address], [address] [facility] [address] [facility] [id number] [address] [place] [address] Aug, [place] [address] [place] [id number] [address] [place] [address] Aug, [place] [address] [address] Aug, Type 2 diabetes mellitus wit h diabetic neuropathic arthropathy E11.610 [place] [address] [address] Aug, Panic disorder without agora phobia F41.0 ; Agoraphobia F40.00 and Dysthymic disorder F34.1 [place] [address] [address] Aug, Shortness of breath R06.02 ; Panic attacks F41.0 ; COPD (chronic obstructive pulmonary disease) J44.9 ; Tobacco abuse Z72.0 ; Family history of diabetes mellitus Z83.3 and Weight gain R63.[address] [address] Aug, [place] [address] [address] Jul, [address] [address] Jun, Onychomycosis B35.1 ; Neurop athy G62.9 and Impaired circulation I99.[address] [address] Mar, Fissure in skin of foot R23. 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 [address] [id number] [address] [place] [address], [place] [address] Jan, [facility] [address] [id number] [address] [place] [address] Dec, [facility] [address] [id number] [address] [place] [address] Dec, Onychomycosis 110.1 and Skin fissures 709.8 [facility] [address] [id number] [address] [place] [address], [place] [address] Sep, [facility] [address] [id number] [address] [place] [address] Sep, [facility] [address] [id number] [address] [place] [address] Aug, [facility] [address] [id number] [address] [place] [address] Aug, [facility] [address] [id number] [address] [place] [address] Jul, [facility] [address] [id number] [address] [place] [address] Jul, [facility] [address] [id number] [address] [place] [address] Jun, [facility] [address] [id number] [address] [place] [address] Jun, [facility] [address] [id number] [address] [place] [address] Jun, [facility] [address] [id number] [address] [place] [address] Jun, [facility] [address] [id number] [address] [place] [address] Jun, [facility] [address] [id number] [address] [place] [address] May, [facility] [address] [id number] [address] [place] [address], [place] [address] May, [facility] [address] [id number] [address] [place] [address], [place] [address] May, [facility] [address] [id number] [address] [place] [address], [place] [address] May, [facility] [address] [id number] [address] [place] [address], [place] [address] May, [facility] [address] [id number] [address] [place] [address], [place] [address] May, [facility] [address] [id number] [address] [place] [address], [place] [address] May, [facility] [address] [id number] [address] [place] [address], [place] [address] May, [facility] [address] [id number] [address] [place] [address], [place] [address] Apr, [facility] [address] [id number] [address] [place] [address], [place] [address] Apr, [facility] [address] [id number] [address] [place] [address], [place] [address] Apr, [facility] [address] [id number] [address] [place] [address], [place] [address] Apr, [facility] [address] [id number] [address] [place] [address], [place] [address] Apr, [facility] [address] [id number] [address] [place] [address], [place] [address] Apr, [facility] [address] [id number] [address] [place] [address], [place] [address] Apr, [facility] [address] [id number] [address] [place] [address], [place] [address] Apr, [facility] [address] [id number] [address] [place] [address], [place] [address] Apr, [facility] [address] [id number] [address] [place] [address], [place] [address] Apr, [facility] [address] [id number] [address] [place] [address], [place] [address] Mar, [facility] [address] [id number] [address] [place] [address], [place] [address] Mar, [facility] [address] [id number] [address] [place] [address], [place] [address] Mar, [facility] [address] [id number] [address] [place] [address], [place] [address] Mar, [facility] [address] [id number] [address] [place] [address], [place] [address] Mar, [facility] [address] [id number] [address] [place] [address], [place] [address] Mar, [facility] [address] [id number] [address] [place] [address], [place] [address] Mar, [facility] [address] [id number] [address] [place] [address], [place] [address] Mar, [facility] [address] [id number] [address] [place] [address], [place] [address] Mar, [facility] [address] [id number] [address] [place] [address], [place] [address] Mar, [facility] [address] [id number] [address] [place] [address], [place] [address] Mar, [facility] [address] [id number] [address] [place] [address], [place] [address] Mar, [facility] [address] [id number] [address] [place] [address], [place] [address] Mar, [facility] [address] [id number] [address] [place] [address], [place] [address] Mar, [facility] [address] [id number] [address] [place] [address], [place] [address] 22 Mar, 2013 [facility] [address] [id number] [address] [place] [address], [place] [address] 20 Mar, 2013 [facility] [address] [id number] [address] [place] [address], [place] [address] 20 Mar, 2013 [facility] [address] [id number] [address] [place] [address], [place] [address] 16 Mar, 2013 [facility] [address] [id number] [address] [place] [address], [place] [address] 16 Mar, 2014 [facility] [address] [id number] [address] [place] [address], [place] [address] 15 Mar, 2014 [facility] [address] [id number] [address] [place] [address], [place] [address] 14 Mar, 2014 [facility] [address] [id number] [address] [place] [address], [place] [address] 14 Mar, 2013 [facility] [address] [id number] [address] [place] [address], [place] [address] 14 Mar, 2014 [facility] [address] [id number] [address] [place] [address] 14 Mar, 2014 [facility] [address] [id number] [address] [place] [address] 09 Mar, 2013 [facility] [address] [id number] [address] [place] [address] 09 Mar, 2013 [facility] [address] [id number] [address] [place] [address], [place] [address] Mar, [facility] [address] [id number] [address] [place] [address] Mar, [facility] [address] [id number] [address] [place] [address] 30 Feb, 2014 [facility] [address] [id number] [address] [place] [address] 30 Feb, 2013 [facility] [address] [id number] [address] [place] [address], [place] [address] 30 Feb, 2013 [facility] [address] [id number] [address] [place] [address], [place] [address] 30 Feb, 2013 [facility] [address] [id number] [address] [place] [address], [place] [address] Feb, 2013 [facility] [address] [id number] [address] [place] [address], [place] [address] Feb, 2013 [facility] [address] [id number] [address] [place] [address], [place] [address] Feb, 2013 [facility] [address] [id number] [address] [place] [address], [place] [address] Feb, 2013 [facility] [address] [id number] [address] [place] [address], [place] [address] Feb, 2013 [facility] [address] [id number] [address] [place] [address], [place] [address] Feb, 2013 [facility] [address] [id number] [address] [place] [address], [place] [address] Feb, 2013 [facility] [address] [id number] [address] [place] [address], [place] [address] Feb, 2013 [facility] [address] [id number] [address] [place] [address], [place] [address] Jan, [facility] [address] [id number] [address] [place] [address], [place] [address] Jan, [facility] [address] [id number] [address] [place] [address], [place] [address] Jan, [facility] [address] [id number] [address] [place] [address], [place] [address] Jan, [facility] [address] [id number] [address] [place] [address], [place] [address] Jan, [facility] [address] [id number] [address] [address] Jan, [facility] [address] [id number] [facility] [address] Jan, [facility] [address] [id number] [facility] [address] Jan, [facility] [address] [id number] [facility] [address] Jan, [facility] [address] [id number] [facility] [address] Jan, [facility] [address] [id number] [address] [place] [address], [place] [address] Jan, [facility] [address] [id number] [address] [place] [address], [place] [address] Jan, [facility] [address] [id number] [address] [place] [address], [place] [address] Jan, [facility] [address] [id number] [address] [place] [address], [place] [address] Dec, [facility] [address] [id number] [address] [place] [address], [place] [address] Dec, [facility] [address] [id number] [address] [place] [address], [place] [address] Dec, [facility] [address] [id number] [address] [place] [address], [place] [address] Dec, [facility] [address] [id number] [address] [place] [address], [place] [address] Dec, [facility] [address] [id number] [address] [place] [address], [place] [address] Dec, [facility] [address] [id number] [address] [place] [address], [place] [address] Dec, [facility] [address] [id number] [address] [place] [address], [place] [address] Dec, [facility] [address] [id number] [facility] [address] Dec, 2013 [facility] [address] [id number] [address] [place] [address], [place] [address] Dec, 2013 [facility] [address] [id number] [address] [place] [address], [place] [address] Dec, 2013 [facility] [address] [id number] [address] [place] [address], [place] [address] Dec, 2013 [facility] [address] [id number] [address] [place] [address], [place] [address] Dec, 2013 [facility] [address] [id number] [address] [place] [address], [place] [address] Dec, 2013 [facility] [address] [id number] [address] [place] [address], [place] [address] Dec, [facility] [address] [id number] [address] [place] [address], [place] [address] Dec, [facility] [address] [id number] [address] [place] [address], [place] [address] Dec, [facility] [address] [id number] [address] [place] [address], [place] [address] Dec, [facility] [address] [id number] [address] [place] [address], [place] [address] Nov, [facility] [address] [id number] [address] [place] [address], [place] [address] Nov, [facility] [address] [id number] [address] [place] [address], [place] [address] Nov, [facility] [address] [id number] [address] [place] [address], [place] [address] Nov, [facility] [address] [id number] [address] [place] [address], [place] [address] 16 Nov, 2013 [facility] [address] [id number] [address] [place] [address], [place] [address] Nov, [facility] [address] [id number] [facility] [address] Nov, [facility] [address] [id number] [facility] [address] Nov, [facility] [address] [id number] [facility] [address] Nov, [facility] [address] [id number] [facility] [address] Nov, [facility] [address] [id number] [address] [place] [address], [place] [address] Nov, [facility] [address] [id number] [address] [place] [address], [place] [address] Nov, [facility] [address] [id number] [address] [place] [address], [place] [address] Nov, [facility] [address] [id number] [address] [place] [address], [place] [address] Nov, [facility] [address] [id number] [address] [place] [address], [place] [address] Nov, [facility] [address] [id number] [address] [place] [address], [place] [address] Nov, [facility] [address] [id number] [address] [place] [address], [place] [address] Nov, [facility] [address] [id number] [address] [place] [address], [place] [address] Nov, [facility] [address] [id number] [address] [place] [address], [place] [address] Nov, [facility] [address] [id number] [address] [place] [address], [place] [address] Nov, [facility] [address] [id number] [address] [place] [address], [place] [address] October, [facility] [address] [id number] [address] [address] October, [facility] [address] [id number] [address] [place] [address], [place] [address] October, [facility] [address] [id number] [address] [place] [address], [place] [address] October, [facility] [address] [id number] [address] [place] [address], [place] [address] Sep, [facility] [address] [id number] [address] [place] [address], [place] [address] Sep, [facility] [address] [id number] [address] [place] [address], [place] [address] Sep, [facility] [address] [id number] [address] [place] [address], [place] [address] Sep, [facility] [address] [id number] [address] [place] [address], [place] [address] Sep, [facility] [address] [id number] [address] [place] [address], [place] [address] Sep, [facility] [address] [id number] [address] [place] [address], [place] [address] Sep, [facility] [address] [id number] [address] [place] [address], [place] [address] Sep, [facility] [address] [id number] [address] [place] [address], [place] [address] Sep, [facility] [address] [id number] [address] [place] [address], [place] [address] Aug, [facility] [address] [id number] [address] [place] [address], [place] [address] Aug, [facility] [address] [id number] [address] [place] [address], [place] [address] Aug, [facility] [address] [id number] [address] [place] [address], [place] [address] Aug, [facility] [address] [id number] [facility] [address] Aug, [facility] [address] [id number] [address] [place] [address], [place] [address] Aug, [facility] [address] [id number] [address] [place] [address], [place] [address] Aug, [facility] [address] [id number] [address] [place] [address], [place] [address] Aug, [facility] [address] [id number] [address] [place] [address], [place] [address] Jul, [facility] [address] [id number] [address] [place] [address], [place] [address] Jul, [facility] [address] [id number] [address] [place] [address], [place] [address] Jun, [facility] [address] [id number] [address] [place] [address], [place] [address] Jun, [facility] [address] [id number] [address] [place] [address], [place] [address] Jun, [facility] [address] [id number] [address] [place] [address], [place] [address] Jun, [facility] [address] [id number] [address] [place] [address], [place] [address] Jun, [facility] [address] [id number] [address] [place] [address], [place] [address] Jun, [facility] [address] [id number] [address] [place] [address], [place] [address] Jun, [facility] [address] [id number] [address] [place] [address], [place] [address] Jun, [facility] [address] [id number] [address] [place] [address], [place] [address] Jun, [facility] [address] [id number] [address] [place] [address], [place] [address] 14 Jun, 2013 [facility] [address] [id number] [address] [place] [address], [place] [address] Jun, [facility] [address] [id number] [address] [place] [address], [place] [address] Jun, [facility] [address] [id number] [address] [place] [address], [place] [address] May, [facility] [address] [id number] [address] [place] [address], [place] [address] May, [facility] [address] [id number] [address] [place] [address], [place] [address] May, [facility] [address] [id number] [address] [place] [address], [place] [address] May, [facility] [address] [id number] [address] [place] [address], [place] [address] May, [facility] [address] [id number] [address] [place] [address], [place] [address] 31 May, 2013 [facility] [address] [id number] [address] [place] [address], [place] [address] 26 May, 2013 [facility] [address] [id number] [address] [place] [address], [place] [address] 23 May, 2013 [facility] [address] [id number] [address] [place] [address], [place] [address] 23 May, 2013 [facility] [address] [id number] [address] [place] [address], [place] [address] 16 May, 2013 [facility] [address] [id number] [address] [place] [address], [place] [address] 16 May, 2013 [facility] [address] [id number] [address] [place] [address], [place] [address] 16 May, 2013 [facility] [address] [id number] [address] [place] [address], [place] [address] May, [facility] [address] [id number] [address] [place] [address], [place] [address] Apr, [facility] [address] [id number] [address] [place] [address], [place] [address] Apr, [facility] [address] [id number] [address] [place] [address], [place] [address] Mar, [facility] [address] [id number] [address] [place] [address], [place] [address] Mar, [facility] [address] [id number] [address] [place] [address], [place] [address] Feb, [facility] [address] [id number] [address] [place] [address], [place] [address] Feb, [facility] [address] [id number] [address] [place] [address], [place] [address] Feb, [facility] [address] [id number] [address] [place] [address], [place] [address] Feb, [facility] [address] [id number] [address] [place] [address], [place] [address] Jan, [facility] [address] [id number] [address] [place] [address] Jan, [facility] [address] [id number] [address] [place] [address] Jan, [facility] [address] [id number] [address] [place] [address] Jan, [facility] [address] [id number] [address] [place] [address], [place] [address] Jan, [facility] [address] [id number] [address] [place] [address], [place] [address] Jan, [facility] [address] [id number] [address] [place] [address] Dec, [facility] [address] [id number] [address] [place] [address] Dec, [facility] [address] [id number] [address] [place] [address], [place] [address] Dec, [facility] [address] [id number] [address] [place] [address], [place] [address] Dec, [facility] [address] [id number] [address] [place] [address], [place] [address] Nov, [facility] [address] [id number] [address] [place] [address], [place] [address] October, [facility] [address] [id number] [address] [place] [address], [place] [address] October, [facility] [address] [id number] [address] [place] [address], [place] [address] October, [facility] [address] [id number] [address] [place] [address], [place] [address] Sep, [facility] [address] [id number] [address] [place] [address], [place] [address] Sep, [facility] [address] [id number] [address] [place] [address], [place] [address] Jun, [facility] [address] [id number] [address] [place] [address], [place] [address] Jun, [facility] [address] [id number] [address] [place] [address], [place] [address] Jun, [facility] [address] [id number] [address] [place] [address], [place] [address] Apr, [facility] [address] [id number] [address] [place] [address], [place] [address] Apr, [facility] [address] [id number] [address] [place] [address], [place] [address] Apr, [facility] [address] [id number] [address] [place] [address], [place] [address] Apr, [facility] [address] [id number] [address] [place] [address], [place] [address] Mar, [facility] [address] [id number] [address] [place] [address], [place] [address] Mar, [facility] [address] [id number] [address] [place] [address], [place] [address] Mar, [facility] [address] [id number] [address] [place] [address], [place] [address] Mar, [facility] [address] [id number] [address] [place] [address], [place] [address] 29 Feb, 2012 [facility] [address] [id number] [address] [place] [address], [place] [address] 27 Feb, 2012 [facility] [address] [id number] [address] [place] [address], [place] [address] Feb, [facility] [address] [id number] [address] [place] [address], [place] [address] Jan, [facility] [address] [id number] [address] [place] [address], [place] [address] Jan, [facility] [address] [id number] [address] [place] [address], [place] [address] Jan, [facility] [address] [id number] [address] [place] [address], [place] [address] Jan, [facility] [address] [id number] [address] [place] [address], [place] [address] Dec, [facility] [address] [id number] [address] [place] [address], [place] [address] Dec, [facility] [address] [id number] [address] [place] [address], [place] [address] Nov, [facility] [address] [id number] [address] [place] [address], [place] [address] Nov, [facility] [address] [id number] [address] [place] [address] [address] October, [facility] [address] [id number] [address] [place] [address], [place] [address] October, [facility] [address] [id number] [address] [place] [address], [place] [address] October, [facility] [address] [id number] [address] [place] [address], [place] [address] Sep, [facility] [address] [id number] [address] [place] [address], [place] [address] Sep, [facility] [address] [id number] [address] [place] [address], [place] [address] Sep, [facility] [address] [id number] [address] [place] [address], [place] [address] Aug, [facility] [address] [id number] [address] [place] [address], [place] [address] Aug, [facility] [address] [id number] [address] [place] [address], [place] [address] Aug, [facility] [address] [id number] [address] [place] [address], [place] [address] Aug, [facility] [address] [id number] [address] [place] [address], [place] [address] Aug, [facility] [address] [id number] [address] [place] [address], [place] [address] Jul, [facility] [address] [id number] [address] [place] [address], [place] [address] 16 Jul, 2011 [facility] [address] [id number] [address] [place] [address], [place] [address] 13 Jul, 2011 [facility] [address] [id number] [address] [place] [address], [place] [address] Jul, [facility] [address] [id number] [address] [place] [address], [place] [address] 07 Jul, 2011 [facility] [address] [id number] [address] [place] [address], [place] [address] 06 Jul, 2011 [facility] [address] [id number] [address] [place] [address], [place] [address] Jul, [facility] [address] [id number] [address] [place] [address], [place] [address] Jul, [facility] [address] [id number] [address] [place] [address], [place] [address] Jun, [facility] [address] [id number] [address] [place] [address], [place] [address] Jun, [facility] [address] [id number] [address] [place] [address], [place] [address] May, [facility] [address] [id number] [address] [place] [address], [place] [address] May, [facility] [address] [id number] [address] [place] [address], [place] [address] May, [facility] [address] [id number] [address] [place] [address], [place] [address] May, [facility] [address] [id number] [address] [place] [address], [place] [address] Apr, [facility] [address] [id number] [address] [place] [address], [place] [address] Apr, [facility] [address] [id number] [address] [place] [address], [place] [address] Apr, [facility] [address] [id number] [address] [place] [address], [place] [address] Mar, [facility] [address] [id number] [address] [place] [address], [place] [address] Mar, [facility] [address] [id number] [address] [place] [address], [place] [address] Mar, [facility] [address] [id number] [address] [place] [address] [address] Mar, [facility] [address] [id number] [address] [place] [address] Dec, [facility] [address] [id number] [address] [place] [address] October, [facility] [address] [id number] [address] [place] [address] May, [facility] [address] [id number] [address] [place] [address] May, [facility] [address] [id number] [address] [place] [address] May, [facility] [address] [id number] [address] [place] [address] May, [facility] [address] [id number] [address] [place] [address] Mar, [facility] [address] [id number] [address] [place] [address] Mar, [facility] [address] [id number] [address] [place] [address] May, [facility] [address] [id number] [address] [place] [address] May, [facility] [address] [id number] [address] [place] [address] May, [facility] [address] [id number] [address] [place] [address] May, [facility] [address] [id number] [address] [place] [address] Apr, [facility] [address] [id number] [address] [place] [address] Apr, [facility] [address] [id number] [address] [place] [address] October, IMMUNIZATIONS No Known Immunizations SOCIAL HISTORY Never Assessed REASON FOR VISIT PLAN OF CARE VITAL SIGNS Height 64 in 2013-06-02 Weight 205 lbs 2013-06-02 Temperature 98.4 degrees Fahrenheit 2013-06-02 Heart Rate 74 bpm 2013-06-02 Respiratory Rate 14 2013-06-02 Blood pressure systolic 122 mmHg 2013-06-02 Blood pressure diastolic 74 mmHg 2013-06-02 MEDICATIONS Unknown Medications RESULTS No Results PROCEDURES Procedure Date Ordered Result Body Site SCR PAP SMER;NEW PT OBTAIN PREP&CONVY-LAB Jun 02, 2013 CYTOPATH C/V AUTO FLUID REDO Jun 02, 2013 TEST FOR BLOOD, FECES Jun 02, 2013 INSTRUCTIONS MEDICATIONS ADMINISTERED No Known Medications MEDICAL [...] History Surgeries only Hospitalization History hypotension, dizziness--[facility] Hospitalization History Colonoscopy 01/30/2014 Hospitalization History pneumonia 01/2019
--- OUTSIDE RECORDS SUMMARY | 2020-01-13 11:36 | XMS REPORT ---
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 Name Role Phone RASHEED RAHMAN Unavailable PROBLEMS Type Condition ICD9-CM Code MLN42-RA Code Onset Dates Condition S tatus SNOMED Code Problem Snoring R06.83 Active 86158486 Problem MRSA (methicillin resistant staph aureus) culture positive Z22.322 Active 966874532 Problem History of illicit drug use Z87.898 Ac tive 065803570 Problem Dysthymic disorder F34.1 Active 7 1426188 Problem Impaired circulation I99.9 Active 31067146 Problem Panic disorder without agoraphobia F41.0 Active 05976182 Problem Agoraphobia F40.00 Active 38608128 Problem Psychotic disorder F29 Active 6 9827328 Problem Mood disorder F39 Active 063280 05 Problem On home oxygen therapy Z99.81 Active 294886507514 Problem Mild chronic obstructive pulmonary disease J44.9 Active 674221806 Problem Neuropathy G62.9 Active 183141362 Problem Essential hypertension I10 Active 25001770 Problem Major depressive disorder, recurrent episode, moderate F33.1 Active 718377386 Problem 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 Active 471718 02 Problem Arthritis M19.90 Active 2670873 Problem 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 Active 323865906 Problem Hypertension, benign I10 Active 16314209 Problem Onychomycosis B35.1 Active 089962 008 Problem Major depressive disorder in full remission F32.5 Active 82242305 Problem Sciatica, left side M54.32 Active 25958207 Problem Varicose veins of both lower extremities I83.93 Active 48639157 Problem COPD exacerbation J44.1 Active 19 5760801 Problem Fatigue R53.83 Active 95561642 Problem Mild persistent asthma without complication J45.30 Active 624333280 Problem Slow transit constipation K59.01 Acti ve 29789506 Problem Chronic obstructive pulmonary disease, unspecified COPD ty pe J44.9 Active 14382620 Problem Body mass index (BMI) 40.0-44.9, adult Z68.41 Active 927848750 Problem Unspecified psychosis not du e to a substance or known physiological condition F29 Active 236226677 ALLERGIES No Information ENCOUNTERS Encounter Location Date Diagnosis [facility] [address] [facility] [id number] [address] [place] [phone] Jan, [facility] [address] [facility] [id number] [address] [place] [phone] Dec, [facility] [address] [facility] [id number] [address] [place] [phone] Dec, [facility] [address] [place] [id number] [place] [address] Dec, [facility] [address] [place] [id number] [place] [phone] Dec, [facility] [address] [facility] [id number] [address] [place] [phone] Dec, Abdominal pain, right upper quadrant R10.11 [place] [address] [facility] [id number] [address] [place] [phone] Dec, [facility] [address] [facility] [id number] [address] [place] [phone] Dec, [facility] [address] [facility] [id number] [address] [place] [phone] Dec, Acute cystitis without hemat uria N30.00 [facility] [address] [facility] [id number] [address] [place] [phone] Nov, Major depressive disorder, r ecurrent episode, moderate F33.1 ; Panic disorder without agoraphobia F41.0 and Morbid obesity E66.01 [facility] [address] [facility] [id number] [address] [place] [phone] Nov, Major depressive disorder, r ecurrent episode, moderate F33.1 and Panic disorder without agoraphobia F41.0 [facility] [address] [facility] [id number] [address] [place] [phone] Nov, [facility] [address] [facility] [id number] [address] [place] [phone] 23 Nov, 2019 [facility] [address] [facility] [id number] [address] [place] [id number] 12 Nov, 2019 COPD exacerbation J44.1 ; Ex posure to viral disease Z20.828 ; Sore throat J02.9 and Community acquired pneumonia of right lower lobe of lung J18.9 [place] [address] [facility] [id number] [address] [place] [phone] Nov, Essential hypertension I10 [place] [address] [facility] [id number] [address] [place] [phone] 12 Nov, 2019 [facility] [id number] [place] [phone] Nov, [facility] [address] 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 [id number] [address] [place] [id number] 10 Nov, 2019 Abdominal pain, right upper quadrant R10.11 [place] [address] [facility] [id number] [address] [place] [phone] October, Major depressive disorder, r ecurrent episode, moderate F33.1 and Panic disorder without agoraphobia F41.0 [place] [address] [facility] [id number] [address] [place] [phone] October, Abdominal pain, right upper quadrant R10.11 [place] [address] [facility] [id number] [address] [place] [phone] Sep, [facility] [id number] [place] [phone] Sep, [place] [address] [address] 15 Sep, 2019 Abdominal pain, right upper quadrant R10.11 [place] [address] [address] 06 Sep, 2019 Panic disorder without agora phobia F41.0 ; Major depressive disorder, recurrent episode, moderate F33.1 and Morbid obesity E66.01 [place] [address] [address] Aug, Bronchitis J40 [place] [address] [address] Aug, Sciatica, left side M54.32 a nd Morbid obesity E66.01 [place] [address] [address] Aug, [place] [address] [address] Aug, Sciatica, left side M54.32 [place] [address] [address] Aug, Neuropathy G62.9 ; Onychomyc osis B35.1 ; Callus of foot L84 and Skin fissures R23.4 [place] [address] [address] Jul, [place] [address] [address] Jul, Morbid obesity E66.01 [place] [address] [address] Jul, Unspecified psychosis not du e to a substance or known physiological condition F29 ; Chronic obstructive pulmonary disease, unspecified COPD type J44.9 and Body mass index (BMI) 40.0-44.9, adult Z68.41 [place] [address] [address] Jun, [facility] [address] [facility] [id number] [address] [place] [phone] Jun, Morbid obesity E66.01 [place] [address] [facility] [id number] [address] [place] [phone] May, Morbid obesity E66.01 [place] [address] [place] [id number] [place] [phone] May, Encounter for immunization Z 23 [place] [address] [facility] [id number] [address] [place] [phone] May, Major depressive disorder, r ecurrent episode, moderate F33.1 ; Panic disorder without agoraphobia F41.0 and Morbid obesity E66.01 [place] [address] [place] [id number] [place] [phone] May, Major depressive disorder in full remission F32.5 and Panic disorder without agoraphobia F41.0 [place] [address] [place] [id number] [place] [phone] Apr, Morbid obesity E66.01 [place] [address] [place] [id number] [place] [id number] Apr, Slow transit constipation K5 9.01 and Cellulitis of left lower extremity L03.116 [place] [address] [place] [id number] [place] [phone] Apr, Morbid obesity E66.01 [place] [address] [facility] [id number] [address] [place] [phone] Apr, [place] [address] [place] [id number] [place] [phone] Apr, Major depressive disorder, r ecurrent episode, moderate F33.1 and Panic disorder without agoraphobia F41.0 [place] [address] [place] [id number] [place] [phone] Mar, Viral upper respiratory trac t infection J06.9 [place] [address] [place] [id number] [place] [id number] 10 Mar, 2019 Bronchitis J40 and Encounter for immunization Z23 [place] [address] [place] [id number] [place] [id number] 08 Mar, 2019 Morbid obesity E66.01 [place] [address] [address] 11 Feb, 2019 Major depressive disorder, r ecurrent episode, moderate F33.1 and Panic disorder without agoraphobia F41.0 [place] [address] [place] [id number] [place] [id number] 10 Feb, 2019 Morbid obesity E66.01 [place] [address] [place] [id number] [place] [id number] 06 Feb, 2019 Onychomycosis B35.1 ; Type 2 diabetes mellitus with diabetic neuropathic arthropathy E11.610 and Xerosis of skin L85.3 [place] [address] [place] [id number] [place] [id number] 04 Feb, 2019 Major depressive disorder, r ecurrent episode, moderate F33.1 ; Panic disorder without agoraphobia F41.0 and Morbid obesity E66.01 [place] [address] [place] [id number] [place] [phone] Jan, Major depressive disorder in full remission F32.5 and Panic disorder without agoraphobia F41.0 [place] [address] [place] [id number] [place] [phone] Jan, Pneumonia of both lower lobe s due to infectious organism J18.1 and Morbid obesity E66.01 [place] [address] [place] [id number] [place] [phone] Jan, [place] [address] [place] [id number] [place] [phone] Jan, Major depressive disorder in full remission F32.5 and Panic disorder without agoraphobia F41.0 [place] [address] [facility] [id number] [address] [place] [phone] Jan, [facility] [address] [place] [id number] [place] [phone] Jan, Major depressive disorder, r ecurrent episode, moderate F33.1 ; Panic disorder without agoraphobia F41.0 and Morbid obesity E66.01 [facility] [address] [place] [id number] [place] [phone] Dec, Bilious vomiting with nausea R11.14 ; Coughing R05 and Choking, subsequent encounter T17.308D [place] [address] [place] [id number] [place] [phone] Dec, Morbid obesity E66.01 [place] [address] [place] [id number] [place] [phone] Dec, Major depressive disorder, r ecurrent episode, moderate F33.1 and Panic disorder without agoraphobia F41.0 [place] [address] [place] [id number] [place] [phone] Dec, [facility] [address] [place] [id number] [place] [phone] Dec, Major depressive disorder, r ecurrent episode, moderate F33.1 [place] [address] [place] [id number] [place] [id number] Nov, Major depressive disorder, r ecurrent episode, moderate F33.1 ; Panic disorder without agoraphobia F41.0 and Morbid obesity E66.01 [facility] [address] [facility] [id number] [address] [place] [id number] Nov, Morbid obesity E66.01 [facility] [address] [place] [id number] [place] [phone] Nov, Major depressive disorder, r ecurrent episode, moderate F33.1 and Panic disorder without agoraphobia F41.0 [facility] [address] [place] [id number] [place] [phone] 18 Nov, 2018 Allergic reaction, initial e ncounter T78.40XA and Morbid obesity E66.01 [place] [address] [facility] [id number] [address] [place] [phone] Nov, [place] [address] [address] 13 Nov, 2018 Morbid obesity E66.01 ; Swal lowing problem R13.10 and Hypertension, benign I10 [facility] [address] [place] [id number] [place] [phone] 07 Nov, 2018 Morbid obesity E66.01 ; COPD exacerbation J44.1 and Non- recurrent acute suppurative otitis media of left ear without spontaneous rupture of tympanic membrane H66.002 [place] [address] [address] Nov, Onychomycosis B35.1 ; Neurop athy G62.9 and Fissure in skin of foot R23.4 [place] [id number] [place] [address] October, Major depressive disorder, r ecurrent episode, moderate F33.1 ; Panic disorder without agoraphobia F41.0 and Morbid obesity E66.01 [facility] [address] [place] [id number] [place] [phone] October, Viral upper respiratory trac t infection J06.9 [place] [address] [place] [id number] [place] [id number] October, [place] [address] [address] October, Major depressive disorder, r ecurrent episode, moderate F33.1 and Panic disorder without agoraphobia F41.0 [place] [id number] [place] [phone] October, [place] [address] [place] [id number] [place] [phone] October, [facility] [address] [facility] [id number] [address] [place] [phone] October, [facility] [address] [facility] [id number] [address] [place] [phone] October, [facility] [address] [facility] [id number] [address] [place] [phone] October, [facility] [address] [facility] [id number] [address] [place] [phone] October, [facility] [address] [facility] [id number] [address] [place] [phone] October, Major depressive disorder, r ecurrent episode, moderate F33.1 and Panic disorder without agoraphobia F41.0 [facility] [address] [facility] [id number] [address] [place] [id number] Sep, Morbid obesity E66.01 and Vane mbar neuritis M54.16 [facility] [address] [facility] [id number] [address] [place] [phone] Sep, Panic disorder without agora phobia F41.0 and Major depressive disorder, recurrent episode, moderate F33.1 [facility] [address] [facility] [id number] [address] [place] [phone] Sep, Gastroenteritis K52.9 ; Low back pain M54.5 ; Other chronic pain G89.29 and Morbid obesity E66.01 [facility] [address] [facility] [id number] [address] [place] [phone] Sep, Major depressive disorder, r ecurrent episode, moderate F33.1 ; Panic disorder without agoraphobia F41.0 and 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 [facility] [address] [facility] [id number] [address] [place] [phone] Sep, Panic disorder without agora phobia F41.0 [facility] [address] [facility] [id number] [address] [place] [id number] Sep, Panic disorder without agora phobia F41.0 [place] [address] [address] Aug, Panic disorder without agora phobia F41.0 ; Major depressive disorder, recurrent episode, moderate F33.1 ; 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 ; Psychotic disorder F29 ; Tardive dyskinesia G24.01 and Morbid obesity E66.01 [place] [address] [address] Aug, Dysthymic disorder F34.1 and Psychotic disorder F29 [place] [address] [address] Aug, Encounter for Medicare [facility] wellness exam Z00.00 ; Morbid obesity E66.01 and 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 [place] [address] [address] Aug, Dysthymic disorder F34.1 and Psychotic disorder F29 [place] [address] [address] Aug, Neuropathy G62.9 ; Onychomyc osis B35.1 and Xerosis of skin L85.3 [place] [address] [address] Jul, [place] [address] [address] Jul, Mood disorder F39 ; Wheezing R06.2 ; Choking, initial encounter T17.308A and Coughing R05 [place] [address] [address] 07 Jul, 2018 Low back pain M54.5 [facility] [address] [place] [id number] [place] [phone] Jun, Flu-like symptoms R68.89 ; B PR 45.0-49.9, adult Z68.42 ; COPD exacerbation J44.1 and Acute bronchitis J20.9 [place] [address] [address] Jun, [place] [address] [address] May, [place] [address] [address] May, Onychomycosis B35.1 and 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 [place] [address] [address] 17 May, 2018 Low back pain M54.5 and Abdoulaye a leg R60.0 [place] [address] [address] 11 May, 2018 BMI 45.0-49.9, adult Z68.42 ; Well woman exam with routine gynecological exam Z01.419 and Breast cancer screening Z12.31 [place] [address] [address] 19 Apr, 2018 Arthritis M19.90 [place] [address] [address] 16 Apr, 2018 Arthritis M19.90 and Otalgia of both ears H92.03 [place] [address] [address] Feb, [place] [address] [address] 28 Feb, 2018 Low back pain M54.5 ; Other chronic pain G89.29 ; Exertional asthma J45.990 and Encounter for immunization Z23 [place] [address] [place] [id number] [place] [address] Feb, Skin fissures R23.4 ; Neurop athy G62.9 and Onychomycosis B35.1 [place] [address] [address] 05 Feb, 2018 Dysthymic disorder F34.1 [place] [address] [address] Feb, [place] [address] [address] Jan, [place] [address] [address] Jan, Abrasion of right elbow, ini tial encounter S50.311A ; Abrasion, right knee, initial encounter S80.211A and Sprain of other ligament of right ankle, initial encounter S93.491A [place] [address] [address] Jan, [facility] [address] [address] Jan, Injury of left ankle, initia l encounter S99.912A ; Fall down stairs, initial encounter W10.8XXA and BMI 45.0-49.9, adult Z68.42 [place] [address] [address] Jan, COPD exacerbation J44.1 [place] [address] [address] Jan, 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 [place] [address] [address] Jan, Bronchitis J40 and Acute sup purative otitis media of left ear without spontaneous rupture of tympanic membrane, recurrence not specified H66.002 [place] [address] [address] Jan, [place] [address] [address] Jan, Bronchitis J40 and BMI 40.0- 44.9, adult Z68.41 [place] [address] [address] Jan, [place] [address] [address] Dec, Gastric pain R10.9 [place] [address] [address] Dec, [place] [address] [address] Dec, History of illicit drug use Z87.898 ; Neuropathy G62.9 ; COPD (chronic obstructive pulmonary disease) with chronic bronchitis J44.9 and Acute pain of right knee M25.561 [place] [address] [address] Nov, [place] [address] [address] Nov, Onychomycosis B35.1 and Cont usion of left foot, subsequent encounter S90.32XD [place] [address] [address] Nov, COPD exacerbation J44.1 [place] [address] [address] Sep, [place] [address] [address] Sep, Dysthymic disorder F34.1 ; T obacco abuse Z72.0 ; Pain in right knee M25.561 ; Pain in left knee M25.562 ; Other chronic pain G89.29 and BMI 40.0- 44.9, adult Z68.41 [place] [address] [address] Aug, Major depressive disorder, r ecurrent episode, moderate F33.1 and 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 [place] [address] [place] [address] 14 Aug, 2017 Dysthymic disorder F34.1 ; N on-pressure chronic ulcer of left thigh, unspecified ulcer stage L97.129 ; Tobacco abuse Z72.0 ; Mild chronic obstructive pulmonary disease J44.9 and Forgetfulness R68.89 [place] [address] [address] 09 Aug, 2017 Onychomycosis B35.1 ; Fissur e in skin of foot R23.4 and Foot callus L84 [facility] [address] [address] Jul, Right medial knee pain M25.5 61 ; Upper respiratory tract infection, unspecified type J06.9 and BMI 40.0-44.9, adult Z68.41 [facility] [place] [address] [address] Jul, Nausea and vomiting, intract ability of vomiting not specified, unspecified vomiting type R11.2 ; Left ear pain H92.02 and Gastric pain R10.9 [place] [address] [address] Apr, Encounter for immunization Z 23 [place] [address] [address] Apr, Onychomycosis B35.1 ; Xerosi s of skin L85.3 ; Neuropathy G62.9 and 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 [id number] [address] [place] [id number] Aug, [facility] [address] [facility] [id number] [address] [place] [phone] Aug, [facility] [address] [facility] [id number] [address] [place] [phone] Jul, [facility] [address] [facility] [id number] [address] [place] [id number] Jul, [facility] [address] [facility] [id number] [address] [place] [phone] Jul, Decubitus ulcer of left thig h, stage 2 L89.892 [facility] [address] [facility] [id number] [address] [place] [id number] Jul, Decubitus ulcer of left thig h, stage 2 L89.892 [facility] [address] [facility] [id number] 25 [place] [id number] Jul, [facility] [address] [facility] [id number] [address] [place] [id number] 15 Jul, 2016 Decubitus ulcer of left thig h, stage 2 L89.892 [facility] [address] [facility] [id number] [address] [place] [id number] 14 Jul, 2016 [facility] [address] [facility] [id number] [address] [place] [id number] 13 Jul, 2016 Cellulitis of other specifie d site L03.818 ; Illicit drug use F19.90 and Decubitus ulcer of left thigh, stage 2 L89.892 [facility] [address] [facility] [id number] [address] [place] [id number] 08 Jul, 2016 [facility] [address] [facility] [id number] [address] [place] [phone] Jul, Cellulitis of right breast N 61.0 [facility] [address] [facility] [id number] [address] [place] [phone] Jun, [facility] [address] [id number] [address] [place] [phone] Jun, [facility] [address] [facility] [id number] [address] [place] [id number] Jun, Wheezing R06.2 and Arthralgi a, unspecified joint M25.50 [facility] [address] [id number] [address] [place] [phone] May, [facility] [address] [facility] [id number] [address] [place] [phone] May, [facility] [address] [facility] [id number] [address] [place] [id number] May, [facility] [address] [facility] [id number] [address] [place] [phone] 05 May, 2016 Shortness of breath R06.02 [facility] [address] [facility] [id number] [address] [place] [phone] May, Onychomycosis B35.1 and Fiss ure in skin of foot R23.4 [facility] [address] [facility] [id number] [address] [place] [phone] 28 Apr, 2016 [facility] [address] [facility] [id number] [address] [place] [id number] 18 Apr, 2016 Dizziness R42 [facility] [address] [facility] [id number] [address] [place] [phone] 14 Apr, 2016 Shortness of breath R06.02 ; Essential hypertension I10 ; Dizziness R42 and On home oxygen therapy Z99.81 [facility] [address] [facility] [id number] [address] [place] [id number] 10 Apr, 2016 [facility] [address] [facility] [id number] [address] [place] [phone] 08 Apr, 2016 [facility] [address] [id number] [address] [place] [phone] Apr, [facility] [address] [id number] [address] [place] [phone] Apr, [facility] [address] [id number] [address] [place] [phone] Apr, [facility] [address] [id number] [address] [place] [phone] Apr, [facility] [address] [id number] [address] [place] [phone] Apr, [facility] [address] [id number] [address] [place] [id number] Mar, Mild chronic obstructive pul monary disease J44.9 [facility] [address] [id number] [address] [place] [id number] Mar, [facility] [address] [id number] [address] [place] [phone] Mar, Epigastric pain R10.13 ; Low back pain M54.5 ; Other chronic pain G89.29 and Breast cancer screening Z12.39 [facility] [address] [id number] [address] [place] [phone] Mar, [facility] [address] [id number] [address] [place] [phone] Mar, [facility] [address] [id number] [address] [place] [phone] Feb, [facility] [address] [id number] [address] [place] [phone] 08 Feb, 2016 [facility] [address] [facility] [id number] [address] [place] [phone] 02 Feb, 2016 Fissure in skin of foot R23. 4 and Onychomycosis B35.1 [facility] [address] [id number] [address] [place] [phone] Jan, Agoraphobia F40.00 [facility] [address] [facility] [id number] [address] [place] [phone] Dec, Agoraphobia F40.00 [facility] [address] [facility] [id number] [address] [place] [id number] Dec, Mild persistent asthma witho ut complication J45.30 ; Dysthymic disorder F34.1 and Upper respiratory tract infection, unspecified type J06.9 [facility] [address] [facility] [id number] [address] [place] [phone] Nov, Agoraphobia F40.00 [facility] [address] [facility] [id number] [address] [place] [phone] October, Agoraphobia F40.00 [facility] [address] [facility] [id number] [address] [place] [id number] Sep, Panic disorder without agora phobia F41.0 ; Agoraphobia F40.00 and Dysthymic disorder F34.1 [facility] [address] [facility] [id number] [address] [place] [phone] Sep, Panic attacks F41.0 [facility] [address] [facility] [id number] [address] [place] [phone] Sep, [facility] [address] [facility] [id number] [address] [place] [phone] Sep, Panic disorder without agora phobia F41.0 ; Varicose veins of both lower extremities I83.93 and Fatigue R53.83 [facility] [address] [facility] [id number] [address] [place] [phone] Sep, Fatigue R53.83 [facility] [address] [facility] [id number] [address] [place] [phone] 05 Sep, 2015 [facility] [address] [facility] [id number] [address] [place] [phone] Aug, [place] [place] [address] [place] [id number] [address] [place] [phone] Aug, [place] [address] [id number] Aug, Type 2 diabetes mellitus wit h diabetic neuropathic arthropathy E11.610 [place] [address] [id number] Aug, Panic disorder without agora phobia F41.0 ; Agoraphobia F40.00 and Dysthymic disorder F34.1 [place] [address] [id number] Aug, Shortness of breath R06.02 ; Panic attacks F41.0 ; COPD (chronic obstructive pulmonary disease) J44.9 ; Tobacco abuse Z72.0 ; Family history of diabetes mellitus Z83.3 and Weight gain R63.[address] [phone] Aug, [place] [address] [id number] Jul, [address] [address] Jun, Onychomycosis B35.1 ; Neurop athy G62.9 and Impaired circulation I99.[address] [address] Mar, Fissure in skin of foot R23. 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 [place] [address] [id number] 18 Feb, 2015 Family history of coronary a rteriosclerosis V17.3 [place] [address] [place] [id number] [address] [place] [phone] 15 Feb, 2015 Allergic rhinitis due to darien agnieszka 477.0 ; Unspecified breast screening V76.10 ; Anxiety 300.00 and Family history of coronary arteriosclerosis V17.3 [facility] [address] [id number] [address] [place] [address], [place] [address] Jan, [facility] [address] [id number] [address] [place] [phone] Dec, [facility] [address] [id number] [address] [place] [phone] Dec, Onychomycosis 110.1 and Skin fissures 709.8 [facility] [address] [id number] [address] [place] [address], [place] [address] Sep, [facility] [address] [id number] [address] [place] [phone] Sep, [facility] [address] [id number] [address] [place] [phone] Aug, [facility] [address] [id number] [address] [place] [phone] Aug, [facility] [address] [id number] [address] [place] [phone] Jul, [facility] [address] [id number] [address] [place] [phone] Jul, [facility] [address] [id number] [address] [place] [phone] Jun, [facility] [address] [id number] [address] [place] [phone] Jun, [facility] [address] [id number] [address] [place] [phone] Jun, [facility] [address] [id number] [address] [place] [phone] Jun, [facility] [address] [id number] [address] [place] [phone] Jun, [facility] [address] [id number] [address] [place] [phone] May, [facility] [address] [id number] [address] [place] [address], [place] [address] May, [facility] [address] [id number] [address] [place] [address], [place] [address] May, [facility] [address] [id number] [address] [place] [address], [place] [address] May, [facility] [address] [id number] [address] [place] [address], [place] [address] May, [facility] [address] [id number] [address] [place] [address], [place] [address] May, [facility] [address] [id number] [address] [place] [address], [place] [address] May, [facility] [address] [id number] [address] [place] [address], [place] [address] May, [facility] [address] [id number] [address] [place] [address], [place] [address] Apr, [facility] [address] [id number] [address] [place] [address], [place] [address] Apr, [facility] [address] [id number] [address] [place] [address], [place] [address] Apr, [facility] [address] [id number] [address] [place] [address], [place] [address] Apr, [facility] [address] [id number] [address] [place] [address], [place] [address] Apr, [facility] [address] [id number] [address] [place] [address], [place] [address] Apr, [facility] [address] [id number] [address] [place] [address], [place] [address] Apr, [facility] [address] [id number] [address] [place] [address], [place] [address] Apr, [facility] [address] [id number] [address] [place] [address], [place] [address] Apr, [facility] [address] [id number] [address] [place] [address], [place] [address] Apr, [facility] [address] [id number] [address] [place] [address], [place] [address] Mar, [facility] [address] [id number] [address] [place] [address], [place] [address] Mar, [facility] [address] [id number] [address] [place] [address], [place] [address] Mar, [facility] [address] [id number] [address] [place] [address], [place] [address] Mar, [facility] [address] [id number] [address] [place] [address], [place] [address] Mar, [facility] [address] [id number] [address] [place] [address], [place] [address] Mar, [facility] [address] [id number] [address] [place] [address], [place] [address] Mar, [facility] [address] [id number] [address] [place] [address], [place] [address] Mar, [facility] [address] [id number] [address] [place] [address], [place] [address] Mar, [facility] [address] [id number] [address] [place] [address], [place] [address] Mar, [facility] [address] [id number] [address] [place] [address], [place] [address] Mar, [facility] [address] [id number] [address] [place] [address], [place] [address] Mar, [facility] [address] [id number] [address] [place] [address], [place] [address] Mar, [facility] [address] [id number] [address] [place] [address], [place] [address] Mar, [facility] [address] [id number] [address] [place] [address], [place] [address] 22 Mar, 2013 [facility] [address] [id number] [address] [place] [address], [place] [address] 20 Mar, 2013 [facility] [address] [id number] [address] [place] [address], [place] [address] 20 Mar, 2013 [facility] [address] [id number] [address] [place] [address], [place] [address] 16 Mar, 2013 [facility] [address] [id number] [address] [place] [address], [place] [address] 16 Mar, 2014 [facility] [address] [id number] [address] [place] [address], [place] [address] 15 Mar, 2014 [facility] [address] [id number] [address] [place] [address], [place] [address] 14 Mar, 2014 [facility] [address] [id number] [address] [place] [address], [place] [address] 14 Mar, 2013 [facility] [address] [id number] [address] [place] [address], [place] [address] 14 Mar, 2014 [facility] [address] [id number] [address] [place] [id number] 14 Mar, 2014 [facility] [address] [id number] [address] [place] [phone] 09 Mar, 2013 [facility] [address] [id number] [address] [place] [phone] 09 Mar, 2013 [facility] [address] [id number] [address] [place] [address], [place] [address] Mar, [facility] [address] [id number] [address] [place] [id number] Mar, [facility] [address] [id number] [address] [place] [id number] 30 Feb, 2014 [facility] [address] [id number] [address] [place] [id number] 30 Feb, 2013 [facility] [address] [id number] [address] [place] [address], [place] [address] 30 Feb, 2013 [facility] [address] [id number] [address] [place] [address], [place] [address] 30 Feb, 2013 [facility] [address] [id number] [address] [place] [address], [place] [address] Feb, 2013 [facility] [address] [id number] [address] [place] [address], [place] [address] Feb, 2013 [facility] [address] [id number] [address] [place] [address], [place] [address] Feb, 2013 [facility] [address] [id number] [address] [place] [address], [place] [address] Feb, 2013 [facility] [address] [id number] [address] [place] [address], [place] [address] Feb, 2013 [facility] [address] [id number] [address] [place] [address], [place] [address] Feb, 2013 [facility] [address] [id number] [address] [place] [address], [place] [address] Feb, 2013 [facility] [address] [id number] [address] [place] [address], [place] [address] Feb, 2013 [facility] [address] [id number] [address] [place] [address], [place] [address] Jan, [facility] [address] [id number] [address] [place] [address], [place] [address] Jan, [facility] [address] [id number] [address] [place] [address], [place] [address] Jan, [facility] [address] [id number] [address] [place] [address], [place] [address] Jan, [facility] [address] [id number] [address] [place] [address], [place] [address] Jan, [facility] [address] [id number] [facility] [place] [address] Jan, [facility] [address] [id number] [facility] [place] [address] Jan, [facility] [address] [id number] [facility] [place] [address] Jan, [facility] [address] [id number] [facility] [place] [address] Jan, [facility] [address] [id number] [facility] [place] [address] Jan, [facility] [address] [id number] [address] [place] [address], [place] [address] Jan, [facility] [address] [id number] [address] [place] [address], [place] [address] Jan, [facility] [address] [id number] [address] [place] [address], [place] [address] Jan, [facility] [address] [id number] [address] [place] [address], [place] [address] Dec, [facility] [address] [id number] [address] [place] [address], [place] [address] Dec, [facility] [address] [id number] [address] [place] [address], [place] [address] Dec, [facility] [address] [id number] [address] [place] [address], [place] [address] Dec, [facility] [address] [id number] [address] [place] [address], [place] [address] Dec, [facility] [address] [id number] [address] [place] [address], [place] [address] Dec, [facility] [address] [id number] [address] [place] [address], [place] [address] Dec, [facility] [address] [id number] [address] [place] [address], [place] [address] Dec, [facility] [address] [id number] [facility] [place] [address] Dec, 2013 [facility] [address] [id number] [address] [place] [address], [place] [address] Dec, 2013 [facility] [address] [id number] [address] [place] [address], [place] [address] Dec, 2013 [facility] [address] [id number] [address] [place] [address], [place] [address] Dec, 2013 [facility] [address] [id number] [address] [place] [address], [place] [address] Dec, 2013 [facility] [address] [id number] [address] [place] [address], [place] [address] Dec, 2013 [facility] [address] [id number] [address] [place] [address], [place] [address] Dec, [facility] [address] [id number] [address] [place] [address], [place] [address] Dec, [facility] [address] [id number] [address] [place] [address], [place] [address] Dec, [facility] [address] [id number] [address] [place] [address], [place] [address] Dec, [facility] [address] [id number] [address] [place] [address], [place] [address] Nov, [facility] [address] [id number] [address] [place] [address], [place] [address] Nov, [facility] [address] [id number] [address] [place] [address], [place] [address] Nov, [facility] [address] [id number] [address] [place] [address], [place] [address] Nov, [facility] [address] [id number] [address] [place] [address], [place] [address] 16 Nov, 2013 [facility] [address] [id number] [address] [place] [address], [place] [address] Nov, [facility] [address] [id number] [facility] [place] [address] Nov, [facility] [address] [id number] [facility] [place] [address] Nov, [facility] [address] [id number] [facility] [place] [address] Nov, [facility] [address] [id number] [facility] [place] [address] Nov, [facility] [address] [id number] [address] [place] [address], [place] [address] Nov, [facility] [address] [id number] [address] [place] [address], [place] [address] Nov, [facility] [address] [id number] [address] [place] [address], [place] [address] Nov, [facility] [address] [id number] [address] [place] [address], [place] [address] Nov, [facility] [address] [id number] [address] [place] [address], [place] [address] Nov, [facility] [address] [id number] [address] [place] [address], [place] [address] Nov, [facility] [address] [id number] [address] [place] [address], [place] [address] Nov, [facility] [address] [id number] [address] [place] [address], [place] [address] Nov, [facility] [address] [id number] [address] [place] [address], [place] [address] Nov, [facility] [address] [id number] [address] [place] [address], [place] [address] Nov, [facility] [address] [id number] [address] [place] [address], [place] [address] October, [facility] [address] [id number] [facility] [place] [address] October, [facility] [address] [id number] [address] [place] [address], [place] [address] October, [facility] [address] [id number] [address] [place] [address], [place] [address] October, [facility] [address] [id number] [address] [place] [address], [place] [address] Sep, [facility] [address] [id number] [address] [place] [address], [place] [address] Sep, [facility] [address] [id number] [address] [place] [address], [place] [address] Sep, [facility] [address] [id number] [address] [place] [address], [place] [address] Sep, [facility] [address] [id number] [address] [place] [address], [place] [address] Sep, [facility] [address] [id number] [address] [place] [address], [place] [address] Sep, [facility] [address] [id number] [address] [place] [address], [place] [address] Sep, [facility] [address] [id number] [address] [place] [address], [place] [address] Sep, [facility] [address] [id number] [address] [place] [address], [place] [address] Sep, [facility] [address] [id number] [address] [place] [address], [place] [address] Aug, [facility] [address] [id number] [address] [place] [address], [place] [address] Aug, [facility] [address] [id number] [address] [place] [address], [place] [address] Aug, [facility] [address] [id number] [address] [place] [address], [place] [address] Aug, [facility] [address] [id number] [facility] [place] [address] Aug, [facility] [address] [id number] [address] [place] [address], [place] [address] Aug, [facility] [address] [id number] [address] [place] [address], [place] [address] Aug, [facility] [address] [id number] [address] [place] [address], [place] [address] Aug, [facility] [address] [id number] [address] [place] [address], [place] [address] Jul, [facility] [address] [id number] [address] [place] [address], [place] [address] Jul, [facility] [address] [id number] [address] [place] [address], [place] [address] Jun, [facility] [address] [id number] [address] [place] [address], [place] [address] Jun, [facility] [address] [id number] [address] [place] [address], [place] [address] Jun, [facility] [address] [id number] [address] [place] [address], [place] [address] Jun, [facility] [address] [id number] [address] [place] [address], [place] [address] Jun, [facility] [address] [id number] [address] [place] [address], [place] [address] Jun, [facility] [address] [id number] [address] [place] [address], [place] [address] Jun, [facility] [address] [id number] [address] [place] [address], [place] [address] Jun, [facility] [address] [id number] [address] [place] [address], [place] [address] Jun, [facility] [address] [id number] [address] [place] [address], [place] [address] 14 Jun, 2013 [facility] [address] [id number] [address] [place] [address], [place] [address] Jun, [facility] [address] [id number] [address] [place] [address], [place] [address] Jun, [facility] [address] [id number] [address] [place] [address], [place] [address] May, [facility] [address] [id number] [address] [place] [address], [place] [address] May, [facility] [address] [id number] [address] [place] [address], [place] [address] May, [facility] [address] [id number] [address] [place] [address], [place] [address] May, [facility] [address] [id number] [address] [place] [address], [place] [address] May, [facility] [address] [id number] [address] [place] [address], [place] [address] 31 May, 2013 [facility] [address] [id number] [address] [place] [address], [place] [address] 26 May, 2013 [facility] [address] [id number] [address] [place] [address], [place] [address] 23 May, 2013 [facility] [address] [id number] [address] [place] [address], [place] [address] 23 May, 2013 [facility] [address] [id number] [address] [place] [address], [place] [address] 16 May, 2013 [facility] [address] [id number] [address] [place] [address], [place] [address] 16 May, 2013 [facility] [address] [id number] [address] [place] [address], [place] [address] 16 May, 2013 [facility] [address] [id number] [address] [place] [address], [place] [address] May, [facility] [address] [id number] [address] [place] [address], [place] [address] Apr, [facility] [address] [id number] [address] [place] [address], [place] [address] Apr, [facility] [address] [id number] [address] [place] [address], [place] [address] Mar, [facility] [address] [id number] [address] [place] [address], [place] [address] Mar, [facility] [address] [id number] [address] [place] [address], [place] [address] Feb, [facility] [address] [id number] [address] [place] [address], [place] [address] Feb, [facility] [address] [id number] [address] [place] [address], [place] [address] Feb, [facility] [address] [id number] [address] [place] [address], [place] [address] Feb, [facility] [address] [id number] [address] [place] [address], [place] [address] Jan, [facility] [address] [id number] [address] [place] [address] Jan, [facility] [address] [id number] [address] [place] [address] Jan, [facility] [address] [id number] [address] [place] [id number] Jan, [facility] [address] [id number] [address] [place] [address], [place] [address] Jan, [facility] [address] [id number] [address] [place] [address], [place] [address] Jan, [facility] [address] [id number] [address] [place] [address] Dec, [facility] [address] [id number] [address] [place] [address] Dec, [facility] [address] [id number] [address] [place] [address], [place] [address] Dec, [facility] [address] [id number] [address] [place] [address], [place] [address] Dec, [facility] [address] [id number] [address] [place] [address], [place] [address] Nov, [facility] [address] [id number] [address] [place] [address], [place] [address] October, [facility] [address] [id number] [address] [place] [address], [place] [address] October, [facility] [address] [id number] [address] [place] [address], [place] [address] October, [facility] [address] [id number] [address] [place] [address], [place] [address] Sep, [facility] [address] [id number] [address] [place] [address], [place] [address] Sep, [facility] [address] [id number] [address] [place] [address], [place] [address] Jun, [facility] [address] [id number] [address] [place] [address], [place] [address] Jun, [facility] [address] [id number] [address] [place] [address], [place] [address] Jun, [facility] [address] [id number] [address] [place] [address], [place] [address] Apr, [facility] [address] [id number] [address] [place] [address], [place] [address] Apr, [facility] [address] [id number] [address] [place] [address], [place] [address] Apr, [facility] [address] [id number] [address] [place] [address], [place] [address] Apr, [facility] [address] [id number] [address] [place] [address], [place] [address] Mar, [facility] [address] [id number] [address] [place] [address], [place] [address] Mar, [facility] [address] [id number] [address] [place] [address], [place] [address] Mar, [facility] [address] [id number] [address] [place] [address], [place] [address] Mar, [facility] [address] [id number] [address] [place] [address], [place] [address] 29 Feb, 2012 [facility] [address] [id number] [address] [place] [address], [place] [address] 27 Feb, 2012 [facility] [address] [id number] [address] [place] [address], [place] [address] Feb, [facility] [address] [id number] [address] [place] [address], [place] [address] Jan, [facility] [address] [id number] [address] [place] [address], [place] [address] Jan, [facility] [address] [id number] [address] [place] [address], [place] [address] Jan, [facility] [address] [id number] [address] [place] [address], [place] [address] Jan, [facility] [address] [id number] [address] [place] [address], [place] [address] Dec, [facility] [address] [id number] [address] [place] [address], [place] [address] Dec, [facility] [address] [id number] [address] [place] [address], [place] [address] Nov, [facility] [address] [id number] [address] [place] [address], [place] [address] Nov, [facility] [address] [id number] [address] [place] [address] [address] October, [facility] [address] [id number] [address] [place] [address], [place] [address] October, [facility] [address] [id number] [address] [place] [address], [place] [address] October, [facility] [address] [id number] [address] [place] [address], [place] [address] Sep, [facility] [address] [id number] [address] [place] [address], [place] [address] Sep, [facility] [address] [id number] [address] [place] [address], [place] [address] Sep, [facility] [address] [id number] [address] [place] [address], [place] [address] Aug, [facility] [address] [id number] [address] [place] [address], [place] [address] Aug, [facility] [address] [id number] [address] [place] [address], [place] [address] Aug, [facility] [address] [id number] [address] [place] [address], [place] [address] Aug, [facility] [address] [id number] [address] [place] [address], [place] [address] Aug, [facility] [address] [id number] [address] [place] [address], [place] [address] Jul, [facility] [address] [id number] [address] [place] [address], [place] [address] 16 Jul, 2011 [facility] [address] [id number] [address] [place] [address], [place] [address] 13 Jul, 2011 [facility] [address] [id number] [address] [place] [address], [place] [address] Jul, [facility] [address] [id number] [address] [place] [address], [place] [address] 07 Jul, 2011 [facility] [address] [id number] [address] [place] [address], [place] [address] 06 Jul, 2011 [facility] [address] [id number] [address] [place] [address], [place] [address] Jul, [facility] [address] [id number] [address] [place] [address], [place] [address] Jul, [facility] [address] [id number] [address] [place] [address], [place] [address] Jun, [facility] [address] [id number] [address] [place] [address], [place] [address] Jun, [facility] [address] [id number] [address] [place] [address], [place] [address] May, [facility] [address] [id number] [address] [place] [address], [place] [address] May, [facility] [address] [id number] [address] [place] [address], [place] [address] May, [facility] [address] [id number] [address] [place] [address], [place] [address] May, [facility] [address] [id number] [address] [place] [address], [place] [address] Apr, [facility] [address] [id number] [address] [place] [address], [place] [address] Apr, [facility] [address] [id number] [address] [place] [address], [place] [address] Apr, [facility] [address] [id number] [address] [place] [address], [place] [address] Mar, [facility] [address] [id number] [address] [place] [address], [place] [address] Mar, [facility] [address] [id number] [address] [place] [address], [place] [address] Mar, [facility] [address] [id number] [address] [place] [address] [address] Mar, [facility] [address] [id number] [address] [place] [address] Dec, [facility] [address] [id number] [address] [place] [address] October, [facility] [address] [id number] [address] [place] [id number] May, [facility] [address] [id number] [address] [place] [address] May, [facility] [address] [id number] [address] [place] [id number] May, [facility] [address] [id number] [address] [place] [id number] May, [facility] [address] [id number] [address] [place] [id number] Mar, [facility] [address] [id number] [address] [place] [id number] Mar, [facility] [address] [id number] [address] [place] [id number] May, [facility] [address] [id number] [address] [place] [id number] May, [facility] [address] [id number] [address] [place] [id number] May, [facility] [address] [id number] [address] [place] [id number] May, [facility] [address] [id number] [address] [place] [id number] Apr, [facility] [address] [id number] [address] [place] [id number] Apr, [facility] [address] [id number] [address] [place] [id number] October, IMMUNIZATIONS No Known Immunizations SOCIAL HISTORY [...] Hospitalization History Surgeries only Hospitalization History hypotension, dizziness--[facility] 6 Hospitalization History Colonoscopy 01/30/2014 Hospitalization History pneumonia 01/2019
--- OUTSIDE RECORDS SUMMARY | 2020-01-13 11:37 | XMS REPORT ---
Author Author Monique RAHMAN [facility] Address [address] [place] [address] Care Team Providers Care Inflatable Buildings Laminator Name Role Phone RASHEED RAHMAN Unavailable PROBLEMS Type Condition ICD9-CM Code NYH42-JP Code Onset Dates Condition S tatus SNOMED Code Problem Snoring R06.83 Active 41412175 Problem MRSA (methicillin resistant staph aureus) culture positive Z22.322 Active 904755305 Problem History of illicit drug use Z87.898 Ac tive 364592395 Problem Dysthymic disorder F34.1 Active 7 7620790 Problem Impaired circulation I99.9 Active 55723890 Problem Panic disorder without agoraphobia F41.0 Active 45599446 Problem Agoraphobia F40.00 Active 68231005 Problem Psychotic disorder F29 Active 6 5808094 Problem Mood disorder F39 Active 815619 05 Problem On home oxygen therapy Z99.81 Active 647750420507 Problem Mild chronic obstructive pulmonary disease J44.9 Active 727844625 Problem Neuropathy G62.9 Active 667115537 Problem Essential hypertension I10 Active 80425043 Problem Major depressive disorder, recurrent episode, moderate F33.1 Active 983935508 Problem 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 Active 086438 02 Problem Arthritis M19.90 Active 2194117 Problem 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 Active 872963694 Problem Hypertension, benign I10 Active 69717812 Problem Onychomycosis B35.1 Active 766036 008 Problem Major depressive disorder in full remission F32.5 Active 77084143 Problem Sciatica, left side M54.32 Active 11612440 Problem Varicose veins of both lower extremities I83.93 Active 49108881 Problem COPD exacerbation J44.1 Active 19 9762854 Problem Fatigue R53.83 Active 30428222 Problem Mild persistent asthma without complication J45.30 Active 212084680 Problem Slow transit constipation K59.01 Acti ve 60107300 Problem Chronic obstructive pulmonary disease, unspecified COPD ty pe J44.9 Active 97196885 Problem Body mass index (BMI) 40.0-44.9, adult Z68.41 Active 433629043 Problem Unspecified psychosis not du e to a substance or known physiological condition F29 Active 729435446 ALLERGIES No Information ENCOUNTERS Encounter Location Date Diagnosis [place] [address] [address] Jan, [place] [address] [facility] [id number] [place] [address] Dec, [place] [address] [address] Nov, Major depressive disorder, r ecurrent episode, moderate F33.1 ; Panic disorder without agoraphobia F41.0 and Morbid obesity E66.01 [place] [address] [address] Nov, Major depressive disorder, r ecurrent episode, moderate F33.1 and Panic disorder without agoraphobia F41.0 [place] [address] [address] Nov, [facility] [address] [place] [id number] [address] [place] [address] Nov, [place] [address] [address] Nov, Essential hypertension I10 [facility] [address] [place] [id number] [address] [place] [address] Nov, COPD exacerbation J44.1 ; Ex posure to viral disease Z20.828 ; Sore throat J02.9 and Community acquired pneumonia of right lower lobe of lung J18.9 [facility] [address] [place] [id number] [address] [place] [address] Nov, [id number] [place] [address] 11 Nov, 2019 [place] [address] [facility] [id number] [address] [place] [address] 11 Nov, 2019 Essential hypertension I10 a nd 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.610 [place] [address] [address] [facility] [id number] [address] [place] [address] 10 Nov, 2019 Abdominal pain, right upper quadrant R10.11 [place] [address] [address] [facility] [id number] [address] [place] [address] 19 Oct, 2019 Major depressive disorder, r ecurrent episode, moderate F33.1 and Panic disorder without agoraphobia F41.0 [place] [address] [address] [facility] [id number] [address] [place] [address] 13 Oct, 2019 Abdominal pain, right upper quadrant R10.11 [place] [address] [address] [facility] [id number] [address] [place] [phone] 29 Sep, [address] [id number] [place] [address] Sep, [place] [address] [address] [facility] [id number] [address] [place] [id number] 15 Sep, 2019 Abdominal pain, right upper quadrant R10.11 [place] [address] [address] [facility] [id number] [address] [place] [address] 06 Sep, 2019 Panic disorder without agora phobia F41.0 ; Major depressive disorder, recurrent episode, moderate F33.1 and Morbid obesity E66.01 [place] [address] [address] [facility] [id number] [address] [place] [address] 26 Aug, 2019 Bronchitis J40 [place] [address] [address] [facility] [id number] [address] [place] [address] Aug, Sciatica, left side M54.32 a nd Morbid obesity E66.01 [place] [address] [address] [facility] [id number] [address] [place] [address] Aug, [place] [address] [facility] [id number] [address] [place] [address] Aug, Sciatica, left side M54.32 [place] [address] [address] Aug, Neuropathy G62.9 ; Onychomyc osis B35.1 ; Callus of foot L84 and Skin fissures R23.4 [place] [address] [address] Jul, [place] [address] [address] Jul, Morbid obesity E66.01 [place] [address] [address] Jul, Unspecified psychosis not du e to a substance or known physiological condition F29 ; Chronic obstructive pulmonary disease, unspecified COPD type J44.9 and Body mass index (BMI) 40.0-44.9, adult Z68.41 [place] [address] [address] Jun, [place] [address] [address] Jun, Morbid obesity E66.01 [place] [address] [address] May, Morbid obesity E66.01 [place] [address] [address] May, Encounter for immunization Z 23 [place] [address] [place] [id number] [address] [place] [address] May, Major depressive disorder, r ecurrent episode, moderate F33.1 ; Panic disorder without agoraphobia F41.0 and Morbid obesity E66.01 [place] [address] [place] [id number] [address] [place] [address] May, Major depressive disorder in full remission F32.5 and Panic disorder without agoraphobia F41.0 [place] [address] [place] [address] Apr, Morbid obesity E66.01 [place] [address] [place] [id number] [address] [place] [address] Apr, Slow transit constipation K5 9.01 and Cellulitis of left lower extremity L03.116 [place] [address] [address] Apr, Morbid obesity E66.01 [place] [address] [address] Apr, [place] [address] [address] Apr, Major depressive disorder, r ecurrent episode, moderate F33.1 and Panic disorder without agoraphobia F41.0 [place] [address] [address] Mar, Viral upper respiratory trac t infection J06.9 [place] [address] [address] Mar, Bronchitis J40 and Encounter for immunization Z23 [place] [address] [place] [id number] [address] [place] [address] Mar, Morbid obesity E66.01 [place] [address] [place] [id number] [place] [address] Feb, Major depressive disorder, r ecurrent episode, moderate F33.1 and Panic disorder without agoraphobia F41.0 [place] [address] [place] [id number] [address] [place] [address] Feb, Morbid obesity E66.01 [place] [address] [place] [id number] [address] [place] [address] 06 Feb, 2019 Onychomycosis B35.1 ; 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 and Xerosis of skin L85.3 [facility] [address] [facility] [id number] [address] [place] [address] Feb, Major depressive disorder, r ecurrent episode, moderate F33.1 ; Panic disorder without agoraphobia F41.0 and Morbid obesity E66.01 [facility] [address] [facility] [id number] [address] [place] [address] Jan, Major depressive disorder in full remission F32.5 and Panic disorder without agoraphobia F41.0 [place] [address] [facility] [id number] [address] [place] [address] Jan, Pneumonia of both lower lobe s due to infectious organism J18.1 and Morbid obesity E66.01 [place] [address] [facility] [id number] [address] [place] [address] Jan, [place] [address] [address] [facility] [id number] [address] [place] [address] Jan, Major depressive disorder in full remission F32.5 and Panic disorder without agoraphobia F41.0 [place] [address] [facility] [id number] [address] [place] [address] Jan, [place] [address] [facility] [id number] [address] [place] [address] Jan, Major depressive disorder, r ecurrent episode, moderate F33.1 ; Panic disorder without agoraphobia F41.0 and Morbid obesity E66.01 [place] [address] [facility] [id number] [address] [place] [address] Dec, Bilious vomiting with nausea R11.14 ; Coughing R05 and Choking, subsequent encounter T17.308D [place] [address] [facility] [id number] [address] [place] [address] Dec, Morbid obesity E66.01 [place] [address] [facility] [id number] [address] [place] [address] Dec, Major depressive disorder, r ecurrent episode, moderate F33.1 and Panic disorder without agoraphobia F41.0 [place] [address] [place] [id number] [address] [place] [address] Dec, [place] [address] [address] Dec, Major depressive disorder, r ecurrent episode, moderate F33.1 [place] [address] [address] Nov, Major depressive disorder, r ecurrent episode, moderate F33.1 ; Panic disorder without agoraphobia F41.0 and Morbid obesity E66.01 [place] [address] [address] Nov, Morbid obesity E66.01 [place] [address] [address] Nov, Major depressive disorder, r ecurrent episode, moderate F33.1 and Panic disorder without agoraphobia F41.0 [facility] [address] [address] Nov, Allergic reaction, initial e ncounter T78.40XA and Morbid obesity E66.01 [place] [address] [address] Nov, [place] [address] [address] Nov, Morbid obesity E66.01 ; Swal lowing problem R13.10 and Hypertension, benign I10 [facility] [address] [place] [id number] [place] [address] 07 Nov, 2018 Morbid obesity E66.01 ; COPD exacerbation J44.1 and Non- recurrent acute suppurative otitis media of left ear without spontaneous rupture of tympanic membrane H66.002 [place] [address] [address] [place] [id number] [address] [place] [address] 07 Nov, 2018 Onychomycosis B35.1 ; Neurop athy G62.9 and Fissure in skin of foot R23.4 [facility] [address] [id number] [address] [place] [address] October, Major depressive disorder, r ecurrent episode, moderate F33.1 ; Panic disorder without agoraphobia F41.0 and Morbid obesity E66.01 [facility] [address] [id number] [address] [place] [address] October, Viral upper respiratory trac t infection J06.9 [facility] [address] [id number] [address] [place] [address] October, [facility] [address] [id number] [address] [place] [address] October, Major depressive disorder, r ecurrent episode, moderate F33.1 and Panic disorder without agoraphobia F41.0 [facility] [address] [id number] [address] [place] [address] October, [facility] [address] [id number] [address] [place] [address] October, [facility] [address] [facility] [id number] [address] [place] [address] October, [facility] [address] [id number] [address] [place] [address] October, [facility] [address] [facility] [id number] [address] [place] [address] October, [facility] [address] [id number] [address] [place] [address] October, [facility] [address] [facility] [id number] [address] [place] [address] October, Major depressive disorder, r ecurrent episode, moderate F33.1 and Panic disorder without agoraphobia F41.0 [facility] [address] [facility] [id number] [address] [place] [address] Sep, Morbid obesity E66.01 and Vane mbar neuritis M54.16 [facility] [address] [facility] [id number] [address] [place] [address] Sep, Panic disorder without agora phobia F41.0 and Major depressive disorder, recurrent episode, moderate F33.1 [facility] [address] [facility] [id number] [address] [place] [address] Sep, Gastroenteritis K52.9 ; Low back pain M54.5 ; Other chronic pain G89.29 and Morbid obesity E66.01 [facility] [address] [facility] [id number] [address] [place] [address] Sep, Major depressive disorder, r ecurrent episode, moderate F33.1 ; Panic disorder without agoraphobia F41.0 and 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 [place] [address] [place] [id number] [address] [place] [address] Sep, Panic disorder without agora phobia F41.0 [facility] [address] [place] [address] Sep, Panic disorder without agora phobia F41.0 [facility] [address] [place] [id number] [address] [place] [address] Aug, Panic disorder without agora phobia F41.0 ; Major depressive disorder, recurrent episode, moderate F33.1 ; 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 ; Psychotic disorder F29 ; Tardive dyskinesia G24.01 and Morbid obesity E66.01 [facility] [address] [place] [id number] [address] [place] [address] Aug, Dysthymic disorder F34.1 and Psychotic disorder F29 [place] [address] [place] [address] Aug, Encounter for Medicare annua l wellness exam Z00.00 ; Morbid obesity E66.01 and 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 [facility] [address] [place] [id number] [address] [place] [address] Aug, Dysthymic disorder F34.1 and Psychotic disorder F29 [place] [address] [address] Aug, Neuropathy G62.9 ; Onychomyc osis B35.1 and Xerosis of skin L85.3 [place] [address] [address] Jul, [place] [address] [address] Jul, Mood disorder F39 ; Wheezing R06.2 ; Choking, initial encounter T17.308A and Coughing R05 [place] [address] [address] Jul, Low back pain M54.5 [facility] [address] [address] Jun, Flu-like symptoms R68.89 ; B OK 45.0-49.9, adult Z68.42 ; COPD exacerbation J44.1 and Acute bronchitis J20.9 [place] [address] [address] Jun, [place] [address] [address] May, [place] [address] [address] May, Onychomycosis B35.1 and 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 [place] [address] [address] May, Low back pain M54.5 and Abdoulaye a leg R60.0 [place] [address] [address] May, BMI 45.0-49.9, adult Z68.42 ; Well woman exam with routine gynecological exam Z01.419 and Breast cancer screening Z12.31 [place] [address] [address] 19 Apr, 2018 Arthritis M19.90 [place] [address] [place] [id number] [place] [address] 16 Apr, 2018 Arthritis M19.90 and Otalgia of both ears H92.03 [place] [address] [address] 28 Feb, 2018 [place] [address] [address] 28 Feb, 2018 Low back pain M54.5 ; Other chronic pain G89.29 ; Exertional asthma J45.990 and Encounter for immunization Z23 [place] [address] [address] Feb, Skin fissures R23.4 ; Neurop athy G62.9 and Onychomycosis B35.1 [place] [address] [address] 05 Feb, 2018 Dysthymic disorder F34.1 [place] [address] [address] 04 Feb, 2018 [place] [address] [address] Jan, [place] [address] [address] Jan, Abrasion of right elbow, ini tial encounter S50.311A ; Abrasion, right knee, initial encounter S80.211A and Sprain of other ligament of right ankle, initial encounter S93.491A [place] [address] [place] [id number] [address] [place] [address] Jan, [facility] [address] [place] [id number] [address] [place] [address] Jan, Injury of left ankle, initia l encounter S99.912A ; Fall down stairs, initial encounter W10.8XXA and BMI 45.0-49.9, adult Z68.42 [place] [address] [place] [address] Jan, COPD exacerbation J44.1 [place] [address] [place] [id number] [address] [place] [address] Jan, 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 [place] [address] [address] Jan, Bronchitis J40 and Acute sup purative otitis media of left ear without spontaneous rupture of tympanic membrane, recurrence not specified H66.002 [place] [address] [address] Jan, [place] [address] [address] Jan, Bronchitis J40 and BMI 40.0- 44.9, adult Z68.41 [place] [address] [place] [address] Jan, [place] [address] [place] [id number] [address] [place] [address] Dec, Gastric pain R10.9 [place] [address] [place] [id number] [address] [place] [address] Dec, [place] [address] [address] Dec, History of illicit drug use Z87.898 ; Neuropathy G62.9 ; COPD (chronic obstructive pulmonary disease) with chronic bronchitis J44.9 and Acute pain of right knee M25.561 [place] [address] [place] [id number] [address] [place] [address] Nov, [place] [address] [place] [id number] [address] [place] [address] Nov, Onychomycosis B35.1 and Cont usion of left foot, subsequent encounter S90.32XD [place] [address] [address] 13 Nov, 2017 COPD exacerbation J44.1 [place] [address] [address] Sep, [place] [address] [address] Sep, Dysthymic disorder F34.1 ; T obacco abuse Z72.0 ; Pain in right knee M25.561 ; Pain in left knee M25.562 ; Other chronic pain G89.29 and BMI 40.0- 44.9, adult Z68.41 [place] [address] [address] Aug, Major depressive disorder, r ecurrent episode, moderate F33.1 and 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 [place] [address] [address] Aug, Dysthymic disorder F34.1 ; N on-pressure chronic ulcer of left thigh, unspecified ulcer stage L97.129 ; Tobacco abuse Z72.0 ; Mild chronic obstructive pulmonary disease J44.9 and Forgetfulness R68.89 [place] [address] [address] Aug, Onychomycosis B35.1 ; Fissur e in skin of foot R23.4 and Foot callus L84 [facility] [address] [address] Jul, Right medial knee pain M25.5 61 ; Upper respiratory tract infection, unspecified type J06.9 and BMI 40.0-44.9, adult Z68.41 [facility] [address] [address] Jul, Nausea and vomiting, intract ability of vomiting not specified, unspecified vomiting type R11.2 ; Left ear pain H92.02 and Gastric pain R10.9 [facility] [address] [facility] [id number] [address] [place] [address] Apr, Encounter for immunization Z 23 [facility] [address] [facility] [id number] [address] [place] [address] Apr, Onychomycosis B35.1 ; Xerosi s of skin L85.3 ; Neuropathy G62.9 and 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 [facility] [address] [facility] [id number] [address] [place] [address] Jan, Onychomycosis B35.1 and Neur opathy G62.9 [facility] [address] [facility] [id number] [address] [place] [address] Dec, [facility] [address] [place] [id number] [address] [place] [address] Dec, [facility] [address] [place] [id number] [address] [place] [address] Nov, [facility] [address] [place] [id number] [address] [place] [address] Aug, [facility] [address] [place] [id number] [address] [place] [address] Aug, [facility] [address] [place] [id number] [address] [place] [address] Jul, [facility] [address] [facility] [id number] [address] [place] [address] Jul, [facility] [address] [facility] [id number] [address] [place] [address] Jul, Decubitus ulcer of left thig h, stage 2 L89.892 [facility] [address] [facility] [id number] [address] [place] [address] Jul, Decubitus ulcer of left thig h, stage 2 L89.892 [facility] [address] [id number] [address] [place] [id number] 17 Jul, 2016 [facility] [address] [id number] [address] [place] [id number] 15 Jul, 2016 Decubitus ulcer of left thig h, stage 2 L89.892 [facility] [address] [id number] [address] [place] [id number] 14 Jul, 2016 [facility] [address] [id number] [address] [place] [id number] 13 Jul, 2016 Cellulitis of other specifie d site L03.818 ; Illicit drug use F19.90 and Decubitus ulcer of left thigh, stage 2 L89.892 [facility] [address] [facility] [id number] [address] [place] [id number] 08 Jul, 2016 [facility] [address] [facility] [id number] [address] [place] [phone] 06 Jul, 2016 Cellulitis of right breast N 61.0 [facility] [address] [id number] [address] [place] [phone] Jun, [facility] [address] [facility] [id number] [address] [place] [phone] Jun, [facility] [address] [facility] [id number] [address] [place] [phone] Jun, Wheezing R06.2 and Arthralgi a, unspecified joint M25.50 [facility] [address] [id number] [address] [place] [address] May, [facility] [address] [facility] [id number] [address] [place] [address] May, [facility] [address] [facility] [id number] [address] [place] [address] May, [facility] [address] [facility] [id number] [address] [place] [address] May, Shortness of breath R06.02 [facility] [address] [id number] [address] [place] [address] 02 May, 2016 Onychomycosis B35.1 and Fiss ure in skin of foot R23.4 [facility] [address] [id number] [address] [place] [address] 28 Apr, 2016 [facility] [address] [id number] [address] [place] [address] 18 Apr, 2016 Dizziness R42 [facility] [address] [id number] [address] [place] [address] 14 Apr, 2016 Shortness of breath R06.02 ; Essential hypertension I10 ; Dizziness R42 and On home oxygen therapy Z99.81 [facility] [address] [id number] [address] [place] [address] 10 Apr, 2016 [facility] [address] [id number] [address] [place] [address] 08 Apr, 2016 [facility] [address] [id number] [address] [place] [address] Apr, [facility] [address] [id number] [address] [place] [address] Apr, [facility] [address] [id number] [address] [place] [address] Apr, [facility] [address] [id number] [address] [place] [address] Apr, [facility] [address] [id number] [address] [place] [address] Apr, [facility] [address] [id number] [address] [place] [address] Mar, Mild chronic obstructive pul monary disease J44.9 [facility] [address] [id number] [address] [place] [address] Mar, [facility] [address] [place] [id number] [address] [place] [address] Mar, Epigastric pain R10.13 ; Low back pain M54.5 ; Other chronic pain G89.29 and Breast cancer screening Z12.39 [facility] [address] [place] [id number] [address] [place] [address] Mar, [facility] [address] [place] [id number] [address] [place] [address] Mar, [facility] [address] [place] [id number] [place] [address] Feb, [place] [address] [address] Feb, [facility] [address] [place] [id number] [place] [address] Feb, Fissure in skin of foot R23. 4 and Onychomycosis B35.1 [place] [address] [address] Jan, Agoraphobia F40.00 [place] [address] [address] Dec, Agoraphobia F40.00 [place] [address] [place] [id number] [place] [address] 07 Dec, 2015 Mild persistent asthma witho ut complication J45.30 ; Dysthymic disorder F34.1 and Upper respiratory tract infection, unspecified type J06.9 [place] [address] [place] [id number] [address] [place] [address] Nov, Agoraphobia F40.00 [place] [address] [place] [id number] [place] [address] October, Agoraphobia F40.00 [place] [address] [place] [id number] [place] [address] Sep, Panic disorder without agora phobia F41.0 ; Agoraphobia F40.00 and Dysthymic disorder F34.1 [place] [address] [place] [id number] [address] [place] [address] Sep, Panic attacks F41.0 [place] [address] [facility] [id number] [address] [place] [address] Sep, [place] [address] [place] [id number] [place] [address] Sep, Panic disorder without agora phobia F41.0 ; Varicose veins of both lower extremities I83.93 and Fatigue R53.83 [place] [address] [place] [id number] [place] [address] Sep, Fatigue R53.83 [place] [address] [place] [id number] [place] [address] Sep, [place] [address] [place] [id number] [place] [address] Aug, [place] [address] [place] [id number] [address] [place] [address] Aug, [place] [address] [place] [id number] [place] [address] Aug, Panic disorder without agora phobia F41.0 ; Agoraphobia F40.00 and Dysthymic disorder F34.1 [place] [address] [place] [id number] [address] [place] [address] Aug, Type 2 diabetes mellitus wit h diabetic neuropathic arthropathy E11.610 [place] [address] [place] [id number] [address] [place] [address] Aug, Shortness of breath R06.02 ; Panic attacks F41.0 ; COPD (chronic obstructive pulmonary disease) J44.9 ; Tobacco abuse Z72.0 ; Family history of diabetes mellitus Z83.3 and Weight gain R63.5 [place] [address] [place] [id number] [address] [place] [address] Aug, [facility] [address] [facility] [id number] [address] [place] [address] Jul, [facility] [address] [place] [id number] [address] [place] [address] Jun, Onychomycosis B35.1 ; Neurop athy G62.9 and Impaired circulation I99.9 [facility] [address] [place] [id number] [address] [place] [address] Mar, Fissure in skin of foot R23. 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 [facility] [address] [place] [id number] [address] [place] [address] 18 Feb, 2015 Family history of coronary a rteriosclerosis V17.3 [place] [address] [address] Feb, Allergic rhinitis due to darien agnieszka 477.0 ; Unspecified breast screening V76.10 ; Anxiety 300.00 and Family history of coronary arteriosclerosis V17.3 [facility] [id number] [place] [address] Jan, [facility] [address] [place] [id number] [address] [place] [address] Dec, [facility] [address] [place] [id number] [address] [place] [address] Dec, Onychomycosis 110.1 and Skin fissures 709.8 [facility] [address] [facility] [id number] [address] [place] [address] Sep, [facility] [address] [place] [id number] [address] [place] [address] Sep, [facility] [address] [place] [id number] [address] [place] [address] Aug, [facility] [address] [place] [id number] [address] [place] [address] Aug, [facility] [address] [id number] [address] [place] [address], [place] [address] Jul, [facility] [address] [id number] [address] [place] [address], [place] [address] Jul, [facility] [address] [id number] [address] [place] [address], [place] [address] Jun, [facility] [address] [id number] [address] [place] [address], [place] [address] Jun, [facility] [address] [id number] [address] [place] [address], [place] [address] Jun, [facility] [address] [id number] [address] [place] [address], [place] [address] Jun, [facility] [address] [id number] [address] [place] [address], [place] [address] Jun, [facility] [address] [id number] [address] [place] [address], [place] [address] May, [facility] [address] [id number] [address] [place] [address], [place] [address] May, [facility] [address] [id number] [address] [place] [address], [place] [address] May, [facility] [address] [id number] [address] [place] [address], [place] [address] May, [facility] [address] [id number] [address] [place] [address], [place] [address] May, [facility] [address] [id number] [address] [place] [address], [place] [address] May, [facility] [address] [id number] [address] [place] [address], [place] [address] May, [facility] [address] [id number] [address] [place] [address], [place] [address] May, [facility] [address] [id number] [address] [place] [address], [place] [address] Apr, [facility] [address] [id number] [address] [place] [address], [place] [address] Apr, [facility] [address] [id number] [address] [place] [address], [place] [address] Apr, [facility] [address] [id number] [address] [place] [address], [place] [address] Apr, [facility] [address] [id number] [address] [place] [address], [place] [address] Apr, [facility] [address] [id number] [address] [place] [address], [place] [address] Apr, [facility] [address] [id number] [address] [place] [address], [place] [address] Apr, [facility] [address] [id number] [address] [place] [address], [place] [address] Apr, [facility] [address] [id number] [address] [place] [address], [place] [address] Apr, [facility] [address] [id number] [address] [place] [address], [place] [address] Apr, [facility] [address] [id number] [address] [place] [address], [place] [address] Mar, [facility] [address] [id number] [address] [place] [address], [place] [address] Mar, [facility] [address] [id number] [address] [place] [address], [place] [address] Mar, [facility] [address] [id number] [address] [place] [address], [place] [address] Mar, [facility] [address] [id number] [address] [place] [address], [place] [address] Mar, [facility] [address] [id number] [address] [place] [address], [place] [address] Mar, [facility] [address] [id number] [address] [place] [address], [place] [address] Mar, [facility] [address] [id number] [address] [place] [address], [place] [address] Mar, [facility] [address] [id number] [address] [place] [address], [place] [address] Mar, [facility] [address] [id number] [address] [place] [address], [place] [address] Mar, [facility] [address] [id number] [address] [place] [address], [place] [address] Mar, [facility] [address] [id number] [address] [place] [address], [place] [address] Mar, [facility] [address] [id number] [address] [place] [address], [place] [address] Mar, [facility] [address] [id number] [address] [place] [address], [place] [address] Mar, [facility] [address] [id number] [address] [place] [address], [place] [address] Mar, [facility] [address] [id number] [address] [place] [address], [place] [address] Mar, [facility] [address] [id number] [address] [place] [address], [place] [address] 20 Mar, 2014 [facility] [address] [id number] [address] [place] [address], [place] [address] 16 Mar, 2014 [facility] [address] [id number] [address] [place] [address], [place] [address] 16 Mar, 2014 [facility] [address] [id number] [address] [place] [address], [place] [address] 15 Mar, 2014 [facility] [address] [id number] [address] [place] [address], [place] [address] 14 Mar, 2014 [facility] [address] [id number] [address] [place] [address] 14 Mar, 2014 [facility] [address] [id number] [address] [place] [address], [place] [address] 14 Mar, 2013 [facility] [address] [id number] [address] [place] [address] 14 Mar, 2013 [facility] [address] [id number] [address] [place] [address], [place] [address] Mar, 2013 [facility] [address] [id number] [address] [place] [address] Mar, 2013 [facility] [address] [id number] [address] [place] [address], [place] [address] Mar, 2013 [facility] [address] [id number] [address] [place] [address] Mar, [facility] [address] [id number] [address] [place] [address] 30 Sep, 2013 [facility] [address] [id number] [address] [place] [address], [place] [address] 30 Sep, 2013 [facility] [address] [id number] [address] [place] [address] 30 Sep, 2013 [facility] [address] [id number] [address] [place] [address], [place] [address] 30 Sep, 2013 [facility] [address] [id number] [address] [place] [address] 26 Sep, 2013 [facility] [address] [id number] [address] [place] [address] 26 Sep, 2013 [facility] [address] [id number] [address] [place] [address], [place] [address] 09 Sep, 2013 [facility] [address] [id number] [address] [place] [address] 09 Sep, 2013 [facility] [address] [id number] [address] [place] [address], [place] [address] 03 Sep, 2013 [facility] [address] [id number] [facility] [place] [address] Feb, 2013 [facility] [address] [id number] [facility] [place] [address] Feb, 2013 [facility] [address] [id number] [facility] [place] [address] Feb, [facility] [address] [id number] [address] [place] [address], [place] [address] Jan, [facility] [address] [id number] [address] [place] [address], [place] [address] Jan, [facility] [address] [id number] [address] [place] [address], [place] [address] Jan, [facility] [address] [id number] [address] [place] [address], [place] [address] Jan, [facility] [address] [id number] [address] [place] [address], [place] [address] Jan, [facility] [address] [id number] [address] [place] [address], [place] [address] Jan, [facility] [address] [id number] [address] [place] [address], [place] [address] Jan, [facility] [address] [id number] [address] [place] [address], [place] [address] Jan, [facility] [address] [id number] [address] [place] [address], [place] [address] Jan, [facility] [address] [id number] [address] [place] [address], [place] [address] Jan, [facility] [address] [id number] [address] [place] [address], [place] [address] Jan, [facility] [address] [id number] [address] [place] [address], [place] [address] Jan, [facility] [address] [id number] [address] [place] [address], [place] [address] Jan, [facility] [address] [id number] [facility] [place] [address] Dec, [facility] [address] [id number] [facility] [place] [address] Dec, [facility] [address] [id number] [facility] [place] [address] Dec, [facility] [address] [id number] [address] [place] [address], [place] [address] Dec, [facility] [address] [id number] [address] [place] [address], [place] [address] Dec, [facility] [address] [id number] [address] [place] [address], [place] [address] Dec, [facility] [address] [id number] [address] [place] [address], [place] [address] Dec, [facility] [address] [id number] [address] [place] [address], [place] [address] Dec, [facility] [address] [id number] [address] [place] [address], [place] [address] Dec, [facility] [address] [id number] [address] [place] [address], [place] [address] Dec, [facility] [address] [id number] [address] [place] [address], [place] [address] Dec, [facility] [address] [id number] [address] [place] [address], [place] [address] Dec, [facility] [address] [id number] [address] [place] [address], [place] [address] Dec, [facility] [address] [id number] [address] [place] [address], [place] [address] Dec, [facility] [address] [id number] [address] [place] [address], [place] [address] Dec, [facility] [address] [id number] [address] [place] [address], [place] [address] Dec, [facility] [address] [id number] [facility] [place] [address] Dec, [facility] [address] [id number] [address] [place] [address], [place] [address] Dec, [facility] [address] [id number] [address] [place] [address], [place] [address] Nov, [facility] [address] [id number] [address] [place] [address], [place] [address] Nov, [facility] [address] [id number] [address] [place] [address], [place] [address] Nov, [facility] [address] [id number] [address] [place] [address], [place] [address] Nov, [facility] [address] [id number] [address] [place] [address], [place] [address] Nov, [facility] [address] [id number] [address] [place] [address], [place] [address] Nov, [facility] [address] [id number] [address] [place] [address], [place] [address] Nov, [facility] [address] [id number] [address] [place] [address], [place] [address] Nov, [facility] [address] [id number] [address] [place] [address], [place] [address] Nov, [facility] [address] [id number] [address] [place] [address], [place] [address] Nov, [facility] [address] [id number] [address] [place] [address], [place] [address] Nov, [facility] [address] [id number] [address] [place] [address], [place] [address] Nov, [facility] [address] [id number] [address] [place] [address], [place] [address] Nov, [facility] [address] [id number] [address] [place] [address] Nov, [facility] [address] [id number] [facility] [place] [address] Nov, [facility] [address] [id number] [address] [place] [address], [place] [address] Nov, [facility] [address] [id number] [address] [place] [address], [place] [address] Nov, [facility] [address] [id number] [address] [place] [address], [place] [address] Nov, [facility] [address] [id number] [address] [place] [address], [place] [address] Nov, [facility] [address] [id number] [address] [place] [address], [place] [address] Nov, [facility] [address] [id number] [address] [place] [address], [place] [address] October, [facility] [address] [id number] [address] [place] [address], [place] [address] October, [facility] [address] [id number] [address] [place] [address], [place] [address] October, [facility] [address] [id number] [address] [place] [address], [place] [address] October, [facility] [address] [id number] [address] [place] [address], [place] [address] Sep, [facility] [address] [id number] [address] [place] [address], [place] [address] Sep, [facility] [address] [id number] [address] [place] [address], [place] [address] Sep, [facility] [address] [id number] [address] [place] [address], [place] [address] Sep, [facility] [address] [id number] [address] [place] [address], [place] [address] Sep, [facility] [address] [id number] [facility] [place] [address] Sep, [facility] [address] [id number] [address] [place] [address], [place] [address] Sep, [facility] [address] [id number] [address] [place] [address], [place] [address] Sep, [facility] [address] [id number] [address] [place] [address], [place] [address] Sep, [facility] [address] [id number] [address] [place] [address], [place] [address] Aug, [facility] [address] [id number] [address] [place] [address], [place] [address] Aug, [facility] [address] [id number] [address] [place] [address], [place] [address] Aug, [facility] [address] [id number] [address] [place] [address], [place] [address] Aug, [facility] [address] [id number] [address] [place] [address], [place] [address] Aug, [facility] [address] [id number] [address] [place] [address], [place] [address] Aug, [facility] [address] [id number] [address] [place] [address], [place] [address] Aug, [facility] [address] [id number] [address] [place] [address], [place] [address] Aug, [facility] [address] [id number] [address] [place] [address], [place] [address] Jul, [facility] [address] [id number] [address] [place] [address], [place] [address] Jul, [facility] [address] [id number] [address] [place] [address], [place] [address] Jun, [facility] [address] [id number] [address] [place] [address], [place] [address] 30 Jun, 2013 [facility] [address] [id number] [address] [place] [address], [place] [address] Jun, [facility] [address] [id number] [address] [place] [address], [place] [address] Jun, [facility] [address] [id number] [address] [place] [address], [place] [address] Jun, [facility] [address] [id number] [address] [place] [address], [place] [address] Jun, [facility] [address] [id number] [address] [place] [address], [place] [address] Jun, [facility] [address] [id number] [address] [place] [address], [place] [address] Jun, [facility] [address] [id number] [address] [place] [address], [place] [address] Jun, [facility] [address] [id number] [address] [place] [address], [place] [address] Jun, [facility] [address] [id number] [address] [place] [address], [place] [address] Jun, [facility] [address] [id number] [address] [place] [address], [place] [address] Jun, [facility] [address] [id number] [address] [place] [address], [place] [address] May, [facility] [address] [id number] [address] [place], [place] [address], [place] [address] May, [facility] [address] [id number] [address] [place] [address], [place] [address] May, [facility] [address] [id number] [address] [place] [address], [place] [address] May, [facility] [address] [id number] [address] [place] [address], [place] [address] May, [facility] [address] [id number] [address] [place] [address], [place] [address] May, [facility] [address] [id number] [address] [place] [address], [place] [address] May, [facility] [address] [id number] [address] [place] [address], [place] [address] May, [facility] [address] [id number] [address] [place] [address], [place] [address] May, [facility] [address] [id number] [address] [place] [address], [place] [address] May, [facility] [address] [id number] [address] [place] [address], [place] [address] May, [facility] [address] [id number] [address] [place] [address], [place] [address] May, [facility] [address] [id number] [address] [place] [address], [place] [address] May, [facility] [address] [id number] [address] [place] [address], [place] [address] Apr, [facility] [address] [id number] [address] [place] [address], [place] [address] Apr, [facility] [address] [id number] [address] [place] [address], [place] [address] Mar, [facility] [address] [id number] [address] [place] [address] Mar, [facility] [address] [id number] [address] [place] [address], [place] [address] 24 Feb, 2013 [facility] [address] [id number] [address] [place] [address], [place] [address] 23 Feb, 2013 [facility] [address] [id number] [address] [place] [address] 05 Feb, 2013 [facility] [address] [id number] [address] [place] [address] Feb, [facility] [address] [id number] [address] [place] [address], [place] [address] Jan, [facility] [address] [id number] [address] [place] [address], [place] [address] Jan, [facility] [address] [id number] [address] [place] [address], [place] [address] Jan, [facility] [address] [id number] [address] [place] [address], [place] [address] Jan, [facility] [address] [id number] [address] [place] [address], [place] [address] Jan, [facility] [address] [id number] [address] [place] [address], [place] [address] Jan, [facility] [address] [id number] [address] [place] [address], [place] [address] Dec, [facility] [address] [id number] [address] [place] [address], [place] [address] Dec, [facility] [address] [id number] [address] [place] [address], [place] [address] Dec, [facility] [address] [id number] [address] [place] [address], [place] [address] Dec, [facility] [address] [id number] [address] [place] [address], [place] [address] Nov, [facility] [address] [id number] [address] [place] [address], [place] [address] October, [facility] [address] [id number] [address] [place] [address], [place] [address] October, [facility] [address] [id number] [address] [place] [address], [place] [address] October, [facility] [address] [id number] [address] [place] [address], [place] [address] Sep, [facility] [address] [id number] [address] [place] [address], [place] [address] Sep, [facility] [address] [id number] [address] [place] [address], [place] [address] Jun, [facility] [address] [id number] [address] [place] [address], [place] [address] Jun, [facility] [address] [id number] [address] [place] [address], [place] [address] Jun, [facility] [address] [id number] [address] [place] [address], [place] [address] Apr, [facility] [address] [id number] [address] [place] [address], [place] [address] Apr, [facility] [address] [id number] [address] [place] [address], [place] [address] Apr, [facility] [address] [id number] [address] [place] [address], [place] [address] Apr, [facility] [address] [id number] [address] [place] [address], [place] [address] Mar, [facility] [address] [id number] [address] [place] [address], [place] [address] Mar, [facility] [address] [id number] [address] [place] [address], [place] [address] Mar, [facility] [address] [id number] [address] [place] [address], [place] [address] Mar, [facility] [address] [id number] [address] [place] [address], [place] [address] 29 Feb, 2012 [facility] [address] [id number] [address] [place] [address], [place] [address] 27 Feb, 2012 [facility] [address] [id number] [address] [place] [address], [place] [address] Feb, [facility] [address] [id number] [address] [place] [address], [place] [address] Jan, [facility] [address] [id number] [address] [place] [address], [place] [address] Jan, [facility] [address] [id number] [address] [place] [address], [place] [address] Jan, [facility] [address] [id number] [address] [place] [address], [place] [address] Jan, [facility] [address] [id number] [address] [place] [address], [place] [address] Dec, [facility] [address] [id number] [address] [place] [address], [place] [address] Dec, [facility] [address] [id number] [address] [place] [address], [place] [address] Nov, [facility] [address] [id number] [address] [place] [address], [place] [address] Nov, [facility] [address] [id number] [address] [place] [address], [place] [address] October, [facility] [address] [id number] [address] [place] [address], [place] [address] October, [facility] [address] [id number] [address] [place] [address], [place] [address] October, [facility] [address] [id number] [address] [place] [address], [place] [address] Sep, [facility] [address] [id number] [address] [place] [address], [place] [address] Sep, [facility] [address] [id number] [address] [place] [address], [place] [address] Sep, [facility] [address] [id number] [address] [place] [address], [place] [address] Aug, [facility] [address] [id number] [address] [place] [address], [place] [address] Aug, [facility] [address] [id number] [address] [place] [address], [place] [address] 15 Aug, 2011 [facility] [address] [id number] [address] [place] [address], [place] [address] 15 Aug, 2011 [facility] [address] [id number] [address] [place] [address], [place] [address] 07 Aug, 2011 [facility] [address] [id number] [address] [place] [address], [place] [address] 23 Jul, 2011 [facility] [address] [id number] [address] [place] [address], [place] [address] 16 Jul, 2011 [facility] [address] [id number] [address] [place] [address], [place] [address] 13 Jul, 2011 [facility] [address] [id number] [address] [place] [address], [place] [address] 09 Jul, 2011 [facility] [address] [id number] [address] [place] [address], [place] [address] 07 Jul, 2011 [facility] [address] [id number] [address] [place] [address], [place] [address] 06 Jul, 2011 [facility] [address] [id number] [address] [place] [address], [place] [address] 03 Jul, 2011 [facility] [address] [id number] [address] [place] [address], [place] [address] Jul, [facility] [address] [id number] [address] [place] [address], [place] [address] Jun, [facility] [address] [id number] [address] [place] [address], [place] [address] Jun, [facility] [address] [id number] [address] [place] [address], [place] [address] May, [facility] [address] [id number] [address] [place] [address], [place] [address] May, [facility] [address] [id number] [address] [place] [address], [place] [address] 08 May, 2011 [facility] [address] [id number] [address] [place] [address], [place] [address] 08 May, 2011 [facility] [address] [id number] [address] [place] [address], [place] [address] 30 Apr, 2011 [facility] [address] [id number] [address] [place] [address], [place] [address] Apr, [facility] [address] [id number] [address] [place] [address], [place] [address] Apr, [facility] [address] [id number] [address] [place] [address], [place] [address] Mar, [facility] [address] [id number] [address] [place] [address], [place] [address] 18 Mar, 2011 [facility] [address] [id number] [address] [place] [address], [place] [address] Mar, [facility] [address] [id number] [address] [place] [address], [place] [address] Mar, [facility] [address] [id number] [address] [place] [address], [place] [address] Dec, [facility] [address] [id number] [address] [place] [address], [place] [address] October, [facility] [address] [id number] [address] [place] [address], [place] [address] May, [facility] [address] [id number] [address] [place] [address] May, [facility] [address] [id number] [address] [place] [address], [place] [address] May, [facility] [address] [id number] [address] [place] [address], [place] [address] 06 May, 2010 [facility] [address] [id number] [address] [place] [address], [place] [address] 26 Mar, 2010 [facility] [address] [id number] [address] [place] [address] Mar, [facility] [address] [id number] [address] [place] [address] May, [facility] [address] [id number] [address] [place] [address] May, [facility] [address] [facility] [id number] [address] [place] [address] May, [facility] [address] [facility] [id number] [address] [place] [address] May, [facility] [address] [facility] [id number] [address] [place] [address] Apr, [facility] [address] [facility] [id number] [address] [place] [address] Apr, [facility] [address] [facility] [id number] [address] [place] [address] October, IMMUNIZATIONS No Known Immunizations SOCIAL HISTORY [...]
--- OUTSIDE RECORDS SUMMARY | 2020-01-13 11:37 | XMS REPORT ---
Author Author Monique RAHMAN [facility] Address [address] [place] [address] Care Team Providers Care Regional Medical Director Name Role Phone RASHEED RAHMAN Unavailable PROBLEMS Type Condition ICD9-CM Code CDX55-WC Code Onset Dates Condition S tatus SNOMED Code Problem Snoring R06.83 Active 83278465 Problem MRSA (methicillin resistant staph aureus) culture positive Z22.322 Active 040579931 Problem History of illicit drug use Z87.898 Ac tive 669758371 Problem Dysthymic disorder F34.1 Active 7 0635667 Problem Impaired circulation I99.9 Active 12188698 Problem Panic disorder without agoraphobia F41.0 Active 48022553 Problem Agoraphobia F40.00 Active 44791965 Problem Psychotic disorder F29 Active 6 3053737 Problem Mood disorder F39 Active 573750 05 Problem On home oxygen therapy Z99.81 Active 163677298819 Problem Mild chronic obstructive pulmonary disease J44.9 Active 252040716 Problem Neuropathy G62.9 Active 339674745 Problem Essential hypertension I10 Active 28249317 Problem Major depressive disorder, recurrent episode, moderate F33.1 Active 120933327 Problem 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 Active 723230 02 Problem Arthritis M19.90 Active 8297934 Problem 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 Active 975489023 Problem Hypertension, benign I10 Active 34138296 Problem Onychomycosis B35.1 Active 753309 008 Problem Major depressive disorder in full remission F32.5 Active 29571795 Problem Sciatica, left side M54.32 Active 57859343 Problem Varicose veins of both lower extremities I83.93 Active 46692814 Problem COPD exacerbation J44.1 Active 19 4220403 Problem Fatigue R53.83 Active 91901377 Problem Mild persistent asthma without complication J45.30 Active 346127826 Problem Slow transit constipation K59.01 Acti ve 71701080 Problem Chronic obstructive pulmonary disease, unspecified COPD ty pe J44.9 Active 61995870 Problem Body mass index (BMI) 40.0-44.9, adult Z68.41 Active 762116119 Problem Unspecified psychosis not du e to a substance or known physiological condition F29 Active 910365456 ALLERGIES No Information ENCOUNTERS Encounter Location Date Diagnosis [place] [address] [address] Jan, [facility] [address] [address] Dec, [place] [address] [address] Nov, Major depressive disorder, r ecurrent episode, moderate F33.1 ; Panic disorder without agoraphobia F41.0 and Morbid obesity E66.01 [place] [address] [address] Nov, Major depressive disorder, r ecurrent episode, moderate F33.1 and Panic disorder without agoraphobia F41.0 [place] [address] [address] Nov, [place] [address] [address] [place] [id number] [place] [address] Nov, [facility] [address] [place] [id number] [address] [place] [address] Nov, COPD exacerbation J44.1 ; Ex posure to viral disease Z20.828 ; Sore throat J02.9 and Community acquired pneumonia of right lower lobe of lung J18.[address] [address] Nov, Essential hypertension I10 [facility] [address] [place] [id number] [address] [place] [address] Nov, [address] [id number] [place] [phone] 11 Nov, 2019 [place] [address] [address] [facility] [id number] [address] [place] [address] 11 Nov, 2019 Essential hypertension I10 a nd 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 arthropathy E11.610 [place] [address] [address] [facility] [id number] [address] [place] [address] 10 Nov, 2019 Abdominal pain, right upper quadrant R10.11 [place] [address] [address] [facility] [id number] [address] [place] [id number] 19 Oct, 2019 Major depressive disorder, r ecurrent episode, moderate F33.1 and Panic disorder without agoraphobia F41.0 [place] [address] [address] [facility] [id number] [address] [place] [id number] 13 Oct, 2019 Abdominal pain, right upper quadrant R10.11 [place] [address] [address] [facility] [id number] [address] [place] [phone] 29 Sep, [id number] [place] [phone] Sep, [place] [address] [address] [facility] [id number] [address] [place] [address] 15 Sep, 2019 Abdominal pain, right upper quadrant R10.11 [place] [address] [address] [facility] [id number] [address] [place] [id number] 06 Sep, 2019 Panic disorder without agora phobia F41.0 ; Major depressive disorder, recurrent episode, moderate F33.1 and Morbid obesity E66.01 [place] [address] [address] [facility] [id number] [address] [place] [id number] 26 Aug, 2019 Bronchitis J40 [place] [address] [address] [facility] [id number] [address] [place] [address] Aug, Sciatica, left side M54.32 a nd Morbid obesity E66.01 [place] [address] [address] [facility] [id number] [address] [place] [address] Aug, [place] [address] [address] [facility] [id number] [address] [place] [address] Aug, Sciatica, left side M54.32 [place] [address] [address] Aug, Neuropathy G62.9 ; Onychomyc osis B35.1 ; Callus of foot L84 and Skin fissures R23.4 [place] [address] [address] Jul, [place] [address] [address] Jul, Morbid obesity E66.01 [place] [address] [address] Jul, Unspecified psychosis not du e to a substance or known physiological condition F29 ; Chronic obstructive pulmonary disease, unspecified COPD type J44.9 and Body mass index (BMI) 40.0-44.9, adult Z68.41 [place] [address] [address] Jun, [place] [address] [address] Jun, Morbid obesity E66.01 [place] [address] [address] May, Morbid obesity E66.01 [place] [address] [address] May, Encounter for immunization Z 23 [place] [address] [address] [place] [id number] [address] [place] [address] May, Major depressive disorder, r ecurrent episode, moderate F33.1 ; Panic disorder without agoraphobia F41.0 and Morbid obesity E66.01 [place] [address] [address] [place] [id number] [place] [address] May, Major depressive disorder in full remission F32.5 and Panic disorder without agoraphobia F41.0 [place] [id number] [place] [address] Apr, Morbid obesity E66.01 [place] [address] [address] [place] [id number] [place] [address] Apr, Slow transit constipation K5 9.01 and Cellulitis of left lower extremity L03.116 [place] [address] [address] Apr, Morbid obesity E66.01 [place] [address] [address] Apr, [place] [address] [address] Apr, Major depressive disorder, r ecurrent episode, moderate F33.1 and Panic disorder without agoraphobia F41.0 [place] [address] [address] Mar, Viral upper respiratory trac t infection J06.9 [place] [address] [address] Mar, Bronchitis J40 and Encounter for immunization Z23 [place] [address] [address] [place] [id number] [place] [address] Mar, Morbid obesity E66.01 [place] [address] [address] [place] [id number] [place] [address] Feb, Major depressive disorder, r ecurrent episode, moderate F33.1 and Panic disorder without agoraphobia F41.0 [place] [address] [address] [place] [id number] [place] [address] Feb, Morbid obesity E66.01 [place] [address] [address] [place] [id number] [place] [address] 06 Feb, 2019 Onychomycosis B35.1 ; 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 arthropathy E11.610 and Xerosis of skin L85.3 [facility] [address] [facility] [id number] [address] [place] [address] Feb, Major depressive disorder, r ecurrent episode, moderate F33.1 ; Panic disorder without agoraphobia F41.0 and Morbid obesity E66.01 [facility] [address] [facility] [id number] [address] [place] [address] Jan, Major depressive disorder in full remission F32.5 and Panic disorder without agoraphobia F41.0 [place] [address] [facility] [id number] [address] [place] [phone] Jan, Pneumonia of both lower lobe s due to infectious organism J18.1 and Morbid obesity E66.01 [place] [address] [address] [facility] [id number] [address] [place] [address] Jan, [place] [address] [address] [facility] [id number] [address] [place] [address] Jan, Major depressive disorder in full remission F32.5 and Panic disorder without agoraphobia F41.0 [place] [address] [facility] [id number] [address] [place] [address] Jan, [place] [address] [address] [facility] [id number] [address] [place] [address] Jan, Major depressive disorder, r ecurrent episode, moderate F33.1 ; Panic disorder without agoraphobia F41.0 and Morbid obesity E66.01 [place] [address] [address] [facility] [id number] [address] [place] [address] Dec, Bilious vomiting with nausea R11.14 ; Coughing R05 and Choking, subsequent encounter T17.308D [place] [address] [address] [facility] [id number] [address] [place] [address] Dec, Morbid obesity E66.01 [place] [address] [address] [facility] [id number] [address] [place] [address] Dec, Major depressive disorder, r ecurrent episode, moderate F33.1 and Panic disorder without agoraphobia F41.0 [place] [address] [address] [place] [id number] [address] [place] [address] Dec, [place] [address] [address] Dec, Major depressive disorder, r ecurrent episode, moderate F33.1 [place] [address] [address] Nov, Major depressive disorder, r ecurrent episode, moderate F33.1 ; Panic disorder without agoraphobia F41.0 and Morbid obesity E66.01 [place] [address] [address] Nov, Morbid obesity E66.01 [place] [address] [address] Nov, Major depressive disorder, r ecurrent episode, moderate F33.1 and Panic disorder without agoraphobia F41.0 [facility] [address] [address] Nov, Allergic reaction, initial e ncounter T78.40XA and Morbid obesity E66.01 [place] [address] [address] Nov, [place] [address] [address] Nov, Morbid obesity E66.01 ; Swal lowing problem R13.10 and Hypertension, benign I10 [facility] [address] [place] [id number] [place] [address] 07 Nov, 2018 Morbid obesity E66.01 ; COPD exacerbation J44.1 and Non- recurrent acute suppurative otitis media of left ear without spontaneous rupture of tympanic membrane H66.002 [place] [id number] [address] [place] [address] 07 Nov, 2018 Onychomycosis B35.1 ; Neurop athy G62.9 and Fissure in skin of foot R23.4 [facility] [address] [id number] [address] [place] [address] October, Major depressive disorder, r ecurrent episode, moderate F33.1 ; Panic disorder without agoraphobia F41.0 and Morbid obesity E66.01 [facility] [address] [id number] [address] [place] [address] October, Viral upper respiratory trac t infection J06.9 [facility] [address] [id number] [address] [place] [phone] October, [facility] [address] [id number] [address] [place] [phone] October, Major depressive disorder, r ecurrent episode, moderate F33.1 and Panic disorder without agoraphobia F41.0 [facility] [address] [id number] [address] [place] [address] October, [facility] [address] [id number] [address] [place] [phone] October, [facility] [address] [facility] [id number] [address] [place] [address] October, [facility] [address] [id number] [address] [place] [address] October, [facility] [address] [facility] [id number] [address] [place] [address] October, [facility] [address] [id number] [address] [place] [address] October, [facility] [address] [facility] [id number] [address] [place] [address] October, Major depressive disorder, r ecurrent episode, moderate F33.1 and Panic disorder without agoraphobia F41.0 [facility] [address] [facility] [id number] [address] [place] [address] Sep, Morbid obesity E66.01 and Vane mbar neuritis M54.16 [facility] [address] [facility] [id number] [address] [place] [address] Sep, Panic disorder without agora phobia F41.0 and Major depressive disorder, recurrent episode, moderate F33.1 [facility] [address] [facility] [id number] [address] [place] [address] Sep, Gastroenteritis K52.9 ; Low back pain M54.5 ; Other chronic pain G89.29 and Morbid obesity E66.01 [facility] [address] [facility] [id number] [address] [place] [address] Sep, Major depressive disorder, r ecurrent episode, moderate F33.1 ; Panic disorder without agoraphobia F41.0 and 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 [place] [id number] [address] [place] [address] Sep, Panic disorder without agora phobia F41.0 [facility] [id number] [place] [address] Sep, Panic disorder without agora phobia F41.0 [facility] [address] [place] [id number] [place] [address] Aug, Panic disorder without agora phobia F41.0 ; Major depressive disorder, recurrent episode, moderate F33.1 ; 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 ; Psychotic disorder F29 ; Tardive dyskinesia G24.01 and Morbid obesity E66.01 [facility] [address] [place] [id number] [place] [address] Aug, Dysthymic disorder F34.1 and Psychotic disorder F29 [place] [address] [id number] [place] [address] Aug, Encounter for Medicare annua l wellness exam Z00.00 ; Morbid obesity E66.01 and 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 [facility] [address] [place] [id number] [address] [place] [address] Aug, Dysthymic disorder F34.1 and Psychotic disorder F29 [place] [address] [address] Aug, Neuropathy G62.9 ; Onychomyc osis B35.1 and Xerosis of skin L85.3 [place] [address] [address] Jul, [place] [address] [address] Jul, Mood disorder F39 ; Wheezing R06.2 ; Choking, initial encounter T17.308A and Coughing R05 [place] [address] [address] Jul, Low back pain M54.5 [facility] [address] [address] Jun, Flu-like symptoms R68.89 ; B MO 45.0-49.9, adult Z68.42 ; COPD exacerbation J44.1 and Acute bronchitis J20.9 [place] [address] [address] Jun, [place] [address] [address] May, [place] [address] [address] May, Onychomycosis B35.1 and 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 [place] [address] [address] May, Low back pain M54.5 and Abdoulaye a leg R60.0 [place] [address] [address] May, BMI 45.0-49.9, adult Z68.42 ; Well woman exam with routine gynecological exam Z01.419 and Breast cancer screening Z12.31 [place] [address] [address] 19 Apr, 2018 Arthritis M19.90 [place] [address] [address] [place] [id number] [place] [address] 16 Apr, 2018 Arthritis M19.90 and Otalgia of both ears H92.03 [place] [address] [address] 28 Feb, 2018 [place] [address] [address] 28 Feb, 2018 Low back pain M54.5 ; Other chronic pain G89.29 ; Exertional asthma J45.990 and Encounter for immunization Z23 [place] [address] [address] Feb, Skin fissures R23.4 ; Neurop athy G62.9 and Onychomycosis B35.1 [place] [address] [address] 05 Feb, 2018 Dysthymic disorder F34.1 [place] [address] [address] 04 Feb, 2018 [place] [address] [address] Jan, [place] [address] [address] Jan, Abrasion of right elbow, ini tial encounter S50.311A ; Abrasion, right knee, initial encounter S80.211A and Sprain of other ligament of right ankle, initial encounter S93.491A [place] [address] [place] [id number] [place] [address] Jan, [facility] [address] [place] [id number] [place] [address] Jan, Injury of left ankle, initia l encounter S99.912A ; Fall down stairs, initial encounter W10.8XXA and BMI 45.0-49.9, adult Z68.42 [place] [address] [place] [address] Jan, COPD exacerbation J44.1 [place] [address] [address] [place] [id number] [place] [address] Jan, 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 [place] [address] [address] Jan, Bronchitis J40 and Acute sup purative otitis media of left ear without spontaneous rupture of tympanic membrane, recurrence not specified H66.002 [place] [address] [address] Jan, [place] [address] [address] Jan, Bronchitis J40 and BMI 40.0- 44.9, adult Z68.41 [place] [address] [place] [address] Jan, [place] [address] [place] [id number] [address] [place] [address] Dec, Gastric pain R10.9 [place] [address] [place] [id number] [place] [address] Dec, [place] [address] [address] Dec, History of illicit drug use Z87.898 ; Neuropathy G62.9 ; COPD (chronic obstructive pulmonary disease) with chronic bronchitis J44.9 and Acute pain of right knee M25.561 [place] [address] [address] [place] [id number] [place] [address] Nov, [place] [address] [place] [id number] [place] [address] Nov, Onychomycosis B35.1 and Cont usion of left foot, subsequent encounter S90.32XD [place] [address] [address] 13 Nov, 2017 COPD exacerbation J44.1 [place] [address] [address] Sep, [place] [address] [address] Sep, Dysthymic disorder F34.1 ; T obacco abuse Z72.0 ; Pain in right knee M25.561 ; Pain in left knee M25.562 ; Other chronic pain G89.29 and BMI 40.0- 44.9, adult Z68.41 [place] [address] [address] Aug, Major depressive disorder, r ecurrent episode, moderate F33.1 and 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 [place] [address] [address] Aug, Dysthymic disorder F34.1 ; N on-pressure chronic ulcer of left thigh, unspecified ulcer stage L97.129 ; Tobacco abuse Z72.0 ; Mild chronic obstructive pulmonary disease J44.9 and Forgetfulness R68.89 [place] [address] [address] Aug, Onychomycosis B35.1 ; Fissur e in skin of foot R23.4 and Foot callus L84 [facility] [address] [address] Jul, Right medial knee pain M25.5 61 ; Upper respiratory tract infection, unspecified type J06.9 and BMI 40.0-44.9, adult Z68.41 [facility] [address] [address] Jul, Nausea and vomiting, intract ability of vomiting not specified, unspecified vomiting type R11.2 ; Left ear pain H92.02 and Gastric pain R10.9 [facility] [address] [facility] [id number] [address] [place] [address] Apr, Encounter for immunization Z 23 [facility] [address] [facility] [id number] [address] [place] [address] Apr, Onychomycosis B35.1 ; Xerosi s of skin L85.3 ; Neuropathy G62.9 and 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 [facility] [address] [facility] [id number] [address] [place] [address] Jan, Onychomycosis B35.1 and Neur opathy G62.9 [facility] [address] [facility] [id number] [address] [place] [address] Dec, [facility] [address] [place] [id number] [place] [address] Dec, [facility] [address] [place] [id number] [place] [address] Nov, [facility] [address] [place] [id number] [place] [address] Aug, [facility] [address] [place] [id number] [place] [address] Aug, [facility] [address] [place] [id number] [place] [address] Jul, [facility] [address] [facility] [id number] [address] [place] [address] Jul, [facility] [address] [facility] [id number] [address] [place] [phone] Jul, Decubitus ulcer of left thig h, stage 2 L89.892 [facility] [address] [facility] [id number] [address] [place] [phone] Jul, Decubitus ulcer of left thig h, stage 2 L89.892 [facility] [address] [id number] [address] [place] [id number] 17 Jul, 2016 [facility] [address] [id number] [address] [place] [id number] 15 Jul, 2016 Decubitus ulcer of left thig h, stage 2 L89.892 [facility] [address] [id number] [address] [place] [phone] 14 Jul, 2016 [facility] [address] [id number] [address] [place] [phone] 13 Jul, 2016 Cellulitis of other specifie d site L03.818 ; Illicit drug use F19.90 and Decubitus ulcer of left thigh, stage 2 L89.892 [facility] [address] [facility] [id number] [address] [place] [id number] 08 Jul, 2016 [facility] [address] [facility] [id number] [address] [place] [phone] 06 Jul, 2016 Cellulitis of right breast N 61.0 [facility] [address] [id number] [address] [place] [id number] Jun, [facility] [address] [facility] [id number] [address] [place] [id number] Jun, [facility] [address] [facility] [id number] [address] [place] [address] Jun, Wheezing R06.2 and Arthralgi a, unspecified joint M25.50 [facility] [address] [id number] [address] [place] [id number] May, [facility] [address] [facility] [id number] [address] [place] [address] May, [facility] [address] [facility] [id number] [address] [place] [id number] May, [facility] [address] [facility] [id number] [address] [place] [address] May, Shortness of breath R06.02 [facility] [address] [id number] [address] [place] [id number] 02 May, 2016 Onychomycosis B35.1 and Fiss ure in skin of foot R23.4 [facility] [address] [id number] [address] [place] [id number] 28 Apr, 2016 [facility] [address] [id number] [address] [place] [id number] 18 Apr, 2016 Dizziness R42 [facility] [address] [id number] [address] [place] [id number] 14 Apr, 2016 Shortness of breath R06.02 ; Essential hypertension I10 ; Dizziness R42 and On home oxygen therapy Z99.81 [facility] [address] [id number] [address] [place] [id number] 10 Apr, 2016 [facility] [address] [id number] [address] [place] [id number] 08 Apr, 2016 [facility] [address] [id number] [address] [place] [phone] Apr, [facility] [address] [id number] [address] [place] [address] Apr, [facility] [address] [id number] [address] [place] [phone] Apr, [facility] [address] [id number] [address] [place] [address] Apr, [facility] [address] [id number] [address] [place] [address] Apr, [facility] [address] [id number] [address] [place] [address] Mar, Mild chronic obstructive pul monary disease J44.9 [facility] [address] [id number] [address] [place] [id number] Mar, [facility] [address] [place] [id number] [address] [place] [address] Mar, Epigastric pain R10.13 ; Low back pain M54.5 ; Other chronic pain G89.29 and Breast cancer screening Z12.39 [facility] [address] [place] [id number] [address] [place] [id number] Mar, [facility] [address] [place] [id number] [address] [place] [address] Mar, [facility] [address] [place] [id number] [place] [address] Feb, [place] [address] [address] Feb, [facility] [address] [place] [id number] [place] [address] Feb, Fissure in skin of foot R23. 4 and Onychomycosis B35.1 [place] [address] [address] Jan, Agoraphobia F40.00 [place] [address] [address] Dec, Agoraphobia F40.00 [place] [address] [place] [id number] [place] [id number] 07 Dec, 2015 Mild persistent asthma witho ut complication J45.30 ; Dysthymic disorder F34.1 and Upper respiratory tract infection, unspecified type J06.9 [place] [address] [place] [id number] [address] [place] [address] Nov, Agoraphobia F40.00 [place] [address] [place] [id number] [place] [address] October, Agoraphobia F40.00 [place] [address] [place] [id number] [place] [address] Sep, Panic disorder without agora phobia F41.0 ; Agoraphobia F40.00 and Dysthymic disorder F34.1 [facility] [address] [place] [id number] [address] [place] [address] Sep, Panic attacks F41.0 [facility] [address] [facility] [id number] [address] [place] [address] Sep, [facility] [address] [place] [id number] [place] [address] Sep, Panic disorder without agora phobia F41.0 ; Varicose veins of both lower extremities I83.93 and Fatigue R53.83 [place] [address] [place] [id number] [place] [address] Sep, Fatigue R53.83 [place] [address] [place] [id number] [place] [address] Sep, [facility] [address] [place] [id number] [place] [address] Aug, [place] [address] [place] [id number] [address] [place] [address] Aug, [place] [address] [place] [id number] [place] [address] Aug, Type 2 diabetes mellitus wit h diabetic neuropathic arthropathy E11.610 [place] [address] [place] [id number] [address] [place] [address] Aug, Panic disorder without agora phobia F41.0 ; Agoraphobia F40.00 and Dysthymic disorder F34.1 [place] [address] [place] [id number] [address] [place] [address] Aug, Shortness of breath R06.02 ; Panic attacks F41.0 ; COPD (chronic obstructive pulmonary disease) J44.9 ; Tobacco abuse Z72.0 ; Family history of diabetes mellitus Z83.3 and Weight gain R63.5 [place] [address] [place] [id number] [place] [phone] Aug, [facility] [address] [facility] [id number] [address] [place] [id number] Jul, [facility] [address] [place] [id number] [address] [place] [address] Jun, Onychomycosis B35.1 ; Neurop athy G62.9 and Impaired circulation I99.9 [facility] [address] [place] [id number] [address] [place] [address] Mar, Fissure in skin of foot R23. 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 [facility] [address] [place] [id number] [address] [place] [id number] 18 Feb, 2015 Family history of coronary a rteriosclerosis V17.3 [place] [address] [address] Feb, Allergic rhinitis due to darien agnieszka 477.0 ; Unspecified breast screening V76.10 ; Anxiety 300.00 and Family history of coronary arteriosclerosis V17.3 [facility] [id number] [place] [address] Jan, [facility] [address] [place] [id number] [address] [place] [address] Dec, [facility] [address] [place] [id number] [address] [place] [address] Dec, Onychomycosis 110.1 and Skin fissures 709.8 [facility] [address] [facility] [id number] [address] [place] [id number] Sep, [facility] [address] [place] [id number] [address] [place] [id number] Sep, [facility] [address] [place] [id number] [address] [place] [address] Aug, [facility] [address] [place] [id number] [address] [place] [address] Aug, [facility] [address] [id number] [address] [place] [address], [place] [address] Jul, [facility] [address] [id number] [address] [place] [address], [place] [address] Jul, [facility] [address] [id number] [address] [place] [address], [place] [address] Jun, [facility] [address] [id number] [address] [place] [address], [place] [address] Jun, [facility] [address] [id number] [address] [place] [address], [place] [address] Jun, [facility] [address] [id number] [address] [place] [address], [place] [address] Jun, [facility] [address] [id number] [address] [place] [address], [place] [address] Jun, [facility] [address] [id number] [address] [place] [address], [place] [address] May, [facility] [address] [id number] [address] [place] [address], [place] [address] May, [facility] [address] [id number] [address] [place] [address], [place] [address] May, [facility] [address] [id number] [address] [place] [address], [place] [address] May, [facility] [address] [id number] [address] [place] [address], [place] [address] May, [facility] [address] [id number] [address] [place] [address], [place] [address] May, [facility] [address] [id number] [address] [place] [address], [place] [address] May, [facility] [address] [id number] [address] [place] [address], [place] [address] May, [facility] [address] [id number] [address] [place] [address], [place] [address] Apr, [facility] [address] [id number] [address] [place] [address], [place] [address] Apr, [facility] [address] [id number] [address] [place] [address], [place] [address] Apr, [facility] [address] [id number] [address] [place] [address], [place] [address] Apr, [facility] [address] [id number] [address] [place] [address], [place] [address] Apr, [facility] [address] [id number] [address] [place] [address], [place] [address] Apr, [facility] [address] [id number] [address] [place] [address], [place] [address] Apr, [facility] [address] [id number] [address] [place] [address], [place] [address] Apr, [facility] [address] [id number] [address] [place] [address], [place] [address] Apr, [facility] [address] [id number] [address] [place] [address], [place] [address] Apr, [facility] [address] [id number] [address] [place] [address], [place] [address] Mar, [facility] [address] [id number] [address] [place] [address], [place] [address] Mar, [facility] [address] [id number] [address] [place] [address], [place] [address] Mar, [facility] [address] [id number] [address] [place] [address], [place] [address] Mar, [facility] [address] [id number] [address] [place] [address], [place] [address] Mar, [facility] [address] [id number] [address] [place] [address], [place] [address] Mar, [facility] [address] [id number] [address] [place] [address], [place] [address] Mar, [facility] [address] [id number] [address] [place] [address], [place] [address] Mar, [facility] [address] [id number] [address] [place] [address], [place] [address] Mar, [facility] [address] [id number] [address] [place] [address], [place] [address] Mar, [facility] [address] [id number] [address] [place] [address], [place] [address] Mar, [facility] [address] [id number] [address] [place] [address], [place] [address] Mar, [facility] [address] [id number] [address] [place] [address], [place] [address] Mar, [facility] [address] [id number] [address] [place] [address], [place] [address] Mar, [facility] [address] [id number] [address] [place] [address], [place] [address] Mar, [facility] [address] [id number] [address] [place] [address], [place] [address] Mar, [facility] [address] [id number] [address] [place] [address], [place] [address] 20 Mar, 2014 [facility] [address] [id number] [address] [place] [address], [place] [address] 16 Mar, 2014 [facility] [address] [id number] [address] [place] [address], [place] [address] 16 Mar, 2014 [facility] [address] [id number] [address] [place] [address], [place] [address] 15 Mar, 2014 [facility] [address] [id number] [address] [place] [address], [place] [address] 14 Mar, 2014 [facility] [address] [id number] [address] [place] [id number] 14 Mar, 2014 [facility] [address] [id number] [address] [place] [address], [place] [address] 14 Mar, 2013 [facility] [address] [id number] [address] [place] [address] 14 Mar, 2013 [facility] [address] [id number] [address] [place] [address], [place] [address] Mar, 2013 [facility] [address] [id number] [address] [place] [address] Mar, 2013 [facility] [address] [id number] [address] [place] [address], [place] [address] Mar, 2013 [facility] [address] [id number] [address] [place] [address] Mar, [facility] [address] [id number] [address] [place] [id number] 30 Sep, 2013 [facility] [address] [id number] [address] [place] [address], [place] [address] 30 Sep, 2013 [facility] [address] [id number] [address] [place] [id number] 30 Sep, 2013 [facility] [address] [id number] [address] [place] [address], [place] [address] 30 Sep, 2013 [facility] [address] [id number] [address] [place] [id number] 26 Sep, 2013 [facility] [address] [id number] [address] [place] [id number] 26 Sep, 2013 [facility] [address] [id number] [address] [place] [address], [place] [address] 09 Sep, 2013 [facility] [address] [id number] [address] [place] [id number] 09 Sep, 2013 [facility] [address] [id number] [address] [place] [address], [place] [address] 03 Sep, 2013 [facility] [address] [id number] [facility] [place] [address] Feb, 2013 [facility] [address] [id number] [facility] [place] [address] Feb, 2013 [facility] [address] [id number] [facility] [place] [address] Feb, [facility] [address] [id number] [address] [place] [address], [place] [address] Jan, [facility] [address] [id number] [address] [place] [address], [place] [address] Jan, [facility] [address] [id number] [address] [place] [address], [place] [address] Jan, [facility] [address] [id number] [address] [place] [address], [place] [address] Jan, [facility] [address] [id number] [address] [place] [address], [place] [address] Jan, [facility] [address] [id number] [address] [place] [address], [place] [address] Jan, [facility] [address] [id number] [address] [place] [address], [place] [address] Jan, [facility] [address] [id number] [address] [place] [address], [place] [address] Jan, [facility] [address] [id number] [address] [place] [address], [place] [address] Jan, [facility] [address] [id number] [address] [place] [address], [place] [address] Jan, [facility] [address] [id number] [address] [place] [address], [place] [address] Jan, [facility] [address] [id number] [address] [place] [address], [place] [address] Jan, [facility] [address] [id number] [address] [place] [address], [place] [address] Jan, [facility] [address] [id number] [facility] [place] [address] Dec, [facility] [address] [id number] [facility] [place] [address] Dec, [facility] [address] [id number] [facility] [place] [address] Dec, [facility] [address] [id number] [address] [place] [address], [place] [address] Dec, [facility] [address] [id number] [address] [place] [address], [place] [address] Dec, [facility] [address] [id number] [address] [place] [address], [place] [address] Dec, [facility] [address] [id number] [address] [place] [address], [place] [address] Dec, [facility] [address] [id number] [address] [place] [address], [place] [address] Dec, [facility] [address] [id number] [address] [place] [address], [place] [address] Dec, [facility] [address] [id number] [address] [place] [address], [place] [address] Dec, [facility] [address] [id number] [address] [place] [address], [place] [address] Dec, [facility] [address] [id number] [address] [place] [address], [place] [address] Dec, [facility] [address] [id number] [address] [place] [address], [place] [address] Dec, [facility] [address] [id number] [address] [place] [address], [place] [address] Dec, [facility] [address] [id number] [address] [place] [address], [place] [address] Dec, [facility] [address] [id number] [address] [place] [address], [place] [address] Dec, [facility] [address] [id number] [facility] [place] [address] Dec, [facility] [address] [id number] [address] [place] [address], [place] [address] Dec, [facility] [address] [id number] [address] [place] [address], [place] [address] Nov, [facility] [address] [id number] [address] [place] [address], [place] [address] Nov, [facility] [address] [id number] [address] [place] [address], [place] [address] Nov, [facility] [address] [id number] [address] [place] [address], [place] [address] Nov, [facility] [address] [id number] [address] [place] [address], [place] [address] Nov, [facility] [address] [id number] [address] [place] [address], [place] [address] Nov, [facility] [address] [id number] [address] [place] [address], [place] [address] Nov, [facility] [address] [id number] [address] [place] [address], [place] [address] Nov, [facility] [address] [id number] [address] [place] [address], [place] [address] Nov, [facility] [address] [id number] [address] [place] [address], [place] [address] Nov, [facility] [address] [id number] [address] [place] [address], [place] [address] Nov, [facility] [address] [id number] [address] [place] [address], [place] [address] Nov, [facility] [address] [id number] [address] [place] [address], [place] [address] Nov, [facility] [address] [id number] [address] [place] [address] Nov, [facility] [address] [id number] [address] [place] [address] Nov, [facility] [address] [id number] [address] [place] [address], [place] [address] Nov, [facility] [address] [id number] [address] [place] [address], [place] [address] Nov, [facility] [address] [id number] [address] [place] [address], [place] [address] Nov, [facility] [address] [id number] [address] [place] [address], [place] [address] Nov, [facility] [address] [id number] [address] [place] [address], [place] [address] Nov, [facility] [address] [id number] [address] [place] [address], [place] [address] October, [facility] [address] [id number] [address] [place] [address], [place] [address] October, [facility] [address] [id number] [address] [place] [address], [place] [address] October, [facility] [address] [id number] [address] [place] [address], [place] [address] October, [facility] [address] [id number] [address] [place] [address], [place] [address] Sep, [facility] [address] [id number] [address] [place] [address], [place] [address] Sep, [facility] [address] [id number] [address] [place] [address], [place] [address] Sep, [facility] [address] [id number] [address] [place] [address], [place] [address] Sep, [facility] [address] [id number] [address] [place] [address], [place] [address] Sep, [facility] [address] [id number] [address] [place] [address] Sep, [facility] [address] [id number] [address] [place] [address], [place] [address] Sep, [facility] [address] [id number] [address] [place] [address], [place] [address] Sep, [facility] [address] [id number] [address] [place] [address], [place] [address] Sep, [facility] [address] [id number] [address] [place] [address], [place] [address] Aug, [facility] [address] [id number] [address] [place] [address], [place] [address] Aug, [facility] [address] [id number] [address] [place] [address], [place] [address] Aug, [facility] [address] [id number] [address] [place] [address], [place] [address] Aug, [facility] [address] [id number] [address] [place] [address], [place] [address] Aug, [facility] [address] [id number] [address] [place] [address], [place] [address] Aug, [facility] [address] [id number] [address] [place] [address], [place] [address] Aug, [facility] [address] [id number] [address] [place] [address], [place] [address] Aug, [facility] [address] [id number] [address] [place] [address], [place] [address] Jul, [facility] [address] [id number] [address] [place] [address], [place] [address] Jul, [facility] [address] [id number] [address] [place] [address], [place] [address] Jun, [facility] [address] [id number] [address] [place] [address], [place] [address] 30 Jun, 2013 [facility] [address] [id number] [address] [place] [address] [address] Jun, [facility] [address] [id number] [address] [place] [address], [place] [address] Jun, [facility] [address] [id number] [address] [place] [address], [place] [address] Jun, [facility] [address] [id number] [address] [place] [address], [place] [address] Jun, [facility] [address] [id number] [address] [place] [address], [place] [address] Jun, [facility] [address] [id number] [address] [place] [address], [place] [address] Jun, [facility] [address] [id number] [address] [place] [address], [place] [address] Jun, [facility] [address] [id number] [address] [place] [address], [place] [address] Jun, [facility] [address] [id number] [address] [place] [address], [place] [address] Jun, [facility] [address] [id number] [address] [place] [address], [place] [address] Jun, [facility] [address] [id number] [address] [place] [address], [place] [address] May, [facility] [address] [id number] [address] [place] [address], [place] [address] May, [facility] [address] [id number] [address] [place] [address], [place] [address] May, [facility] [address] [id number] [address] [place] [address], [place] [address] May, [facility] [address] [id number] [address] [place] [address], [place] [address] May, [facility] [address] [id number] [address] [place] [address], [place] [address] May, [facility] [address] [id number] [address] [place] [address], [place] [address] May, [facility] [address] [id number] [address] [place] [address], [place] [address] May, [facility] [address] [id number] [address] [place] [address], [place] [address] May, [facility] [address] [id number] [address] [place] [address], [place] [address] May, [facility] [address] [id number] [address] [place] [address], [place] [address] May, [facility] [address] [id number] [address] [place] [address], [place] [address] May, [facility] [address] [id number] [address] [place] [address], [place] [address] May, [facility] [address] [id number] [address] [place] [address], [place] [address] Apr, [facility] [address] [id number] [address] [place] [address], [place] [address] Apr, [facility] [address] [id number] [address] [place] [address], [place] [address] Mar, [facility] [address] [id number] [address] [place] [id number] Mar, [facility] [address] [id number] [address] [place] [address], [place] [address] 24 Feb, 2013 [facility] [address] [id number] [address] [place] [address], [place] [address] 23 Feb, 2013 [facility] [address] [id number] [address] [place] [id number] 05 Feb, 2013 [facility] [address] [id number] [address] [place] [id number] Feb, [facility] [address] [id number] [address] [place] [address], [place] [address] Jan, [facility] [address] [id number] [address] [place] [address], [place] [address] Jan, [facility] [address] [id number] [address] [place] [address], [place] [address] Jan, [facility] [address] [id number] [address] [place] [address], [place] [address] Jan, [facility] [address] [id number] [address] [place] [address], [place] [address] Jan, [facility] [address] [id number] [address] [place] [address], [place] [address] Jan, [facility] [address] [id number] [address] [place] [address], [place] [address] Dec, [facility] [address] [id number] [address] [place] [address], [place] [address] Dec, [facility] [address] [id number] [address] [place] [address], [place] [address] Dec, [facility] [address] [id number] [address] [place] [address], [place] [address] Dec, [facility] [address] [id number] [address] [place] [address], [place] [address] Nov, [facility] [address] [id number] [address] [place] [address], [place] [address] October, [facility] [address] [id number] [address] [place] [address], [place] [address] October, [facility] [address] [id number] [address] [place] [address], [place] [address] October, [facility] [address] [id number] [address] [place] [address], [place] [address] Sep, [facility] [address] [id number] [address] [place] [address], [place] [address] Sep, [facility] [address] [id number] [address] [place] [address], [place] [address] Jun, [facility] [address] [id number] [address] [place] [address], [place] [address] Jun, [facility] [address] [id number] [address] [place] [address], [place] [address] Jun, [facility] [address] [id number] [address] [place] [address], [place] [address] Apr, [facility] [address] [id number] [address] [place] [address], [place] [address] Apr, [facility] [address] [id number] [address] [place] [address], [place] [address] Apr, [facility] [address] [id number] [address] [place] [address], [place] [address] Apr, [facility] [address] [id number] [address] [place] [address], [place] [address] Mar, [facility] [address] [id number] [address] [place] [address], [place] [address] Mar, [facility] [address] [id number] [address] [place] [address], [place] [address] Mar, [facility] [address] [id number] [address] [place] [address], [place] [address] Mar, [facility] [address] [id number] [address] [place] [address], [place] [address] 29 Feb, 2012 [facility] [address] [id number] [address] [place] [address], [place] [address] 27 Feb, 2012 [facility] [address] [id number] [address] [place] [address], [place] [address] Feb, [facility] [address] [id number] [address] [place] [address], [place] [address] Jan, [facility] [address] [id number] [address] [place] [address], [place] [address] Jan, [facility] [address] [id number] [address] [place] [address], [place] [address] Jan, [facility] [address] [id number] [address] [place] [address], [place] [address] Jan, [facility] [address] [id number] [address] [place] [address], [place] [address] Dec, [facility] [address] [id number] [address] [place] [address], [place] [address] Dec, [facility] [address] [id number] [address] [place] [address], [place] [address] Nov, [facility] [address] [id number] [address] [place] [address], [place] [address] Nov, [facility] [address] [id number] [address] [place] [address], [place] [address] October, [facility] [address] [id number] [address] [place] [address], [place] [address] October, [facility] [address] [id number] [address] [place] [address], [place] [address] October, [facility] [address] [id number] [address] [place] [address], [place] [address] Sep, [facility] [address] [id number] [address] [place] [address], [place] [address] Sep, [facility] [address] [id number] [address] [place] [address], [place] [address] Sep, [facility] [address] [id number] [address] [place] [address], [place] [address] Aug, [facility] [address] [id number] [address] [place] [address], [place] [address] Aug, [facility] [address] [id number] [address] [place] [address], [place] [address] 15 Aug, 2011 [facility] [address] [id number] [address] [place] [address], [place] [address] 15 Aug, 2011 [facility] [address] [id number] [address] [place] [address], [place] [address] 07 Aug, 2011 [facility] [address] [id number] [address] [place] [address], [place] [address] 23 Jul, 2011 [facility] [address] [id number] [address] [place] [address], [place] [address] 16 Jul, 2011 [facility] [address] [id number] [address] [place] [address], [place] [address] 13 Jul, 2011 [facility] [address] [id number] [address] [place] [address], [place] [address] 09 Jul, 2011 [facility] [address] [id number] [address] [place] [address], [place] [address] 07 Jul, 2011 [facility] [address] [id number] [address] [place] [address], [place] [address] 06 Jul, 2011 [facility] [address] [id number] [address] [place] [address], [place] [address] 03 Jul, 2011 [facility] [address] [id number] [address] [place] [address], [place] [address] Jul, [facility] [address] [id number] [address] [place] [address], [place] [address] Jun, [facility] [address] [id number] [address] [place] [address], [place] [address] Jun, [facility] [address] [id number] [address] [place] [address], [place] [address] May, [facility] [address] [id number] [address] [place] [address], [place] [address] May, [facility] [address] [id number] [address] [place] [address], [place] [address] 08 May, 2011 [facility] [address] [id number] [address] [place] [address], [place] [address] 08 May, 2011 [facility] [address] [id number] [address] [place] [address], [place] [address] 30 Apr, 2011 [facility] [address] [id number] [address] [place] [address], [place] [address] Apr, [facility] [address] [id number] [address] [place] [address], [place] [address] Apr, [facility] [address] [id number] [address] [place] [address], [place] [address] Mar, [facility] [address] [id number] [address] [place] [address], [place] [address] 18 Mar, 2011 [facility] [address] [id number] [address] [place] [address], [place] [address] Mar, [facility] [address] [id number] [address] [place] [address], [place] [address] Mar, [facility] [address] [id number] [address] [place] [address], [place] [address] Dec, [facility] [address] [id number] [address] [place] [address], [place] [address] October, [facility] [address] [id number] [address] [place] [address], [place] [address] May, [facility] [address] [id number] [address] [place] [address] May, [facility] [address] [id number] [address] [place] [address], [place] [address] May, [facility] [address] [id number] [address] [place] [address], [place] [address] 06 May, 2010 [facility] [address] [id number] [address] [place] [address], [place] [address] 26 Mar, 2010 [facility] [address] [id number] [address] [place] [id number] Mar, [facility] [address] [id number] [address] [place] [id number] May, [facility] [address] [id number] [address] [place] [id number] May, [facility] [address] [facility] [id number] [address] [place] [id number] May, [facility] [address] [facility] [id number] [address] [place] [id number] May, [facility] [address] [facility] [id number] [address] [place] [id number] Apr, [facility] [address] [facility] [id number] [address] [place] [id number] Apr, [facility] [address] [facility] [id number] [address] [place] [id number] October, IMMUNIZATIONS No Known Immunizations SOCIAL HISTORY [...]
--- OUTSIDE RECORDS SUMMARY | 2020-01-13 11:38 | XMS REPORT ---
Author Author Monique RAHMAN [facility] Address [address] [place] [address] Care Team Providers Care Key Bed Installer Name Role Phone RASHEED RAHMAN Unavailable PROBLEMS Type Condition ICD9-CM Code PSR38-XK Code Onset Dates Condition S tatus SNOMED Code Problem Snoring R06.83 Active 23565571 Problem MRSA (methicillin resistant staph aureus) culture positive Z22.322 Active 868639482 Problem History of illicit drug use Z87.898 Ac tive 086725802 Problem Dysthymic disorder F34.1 Active 7 8937260 Problem Impaired circulation I99.9 Active 64929938 Problem Panic disorder without agoraphobia F41.0 Active 12119903 Problem Agoraphobia F40.00 Active 39813130 Problem Psychotic disorder F29 Active 6 9602470 Problem Mood disorder F39 Active 043220 05 Problem On home oxygen therapy Z99.81 Active 475673231055 Problem Mild chronic obstructive pulmonary disease J44.9 Active 950932476 Problem Neuropathy G62.9 Active 362659248 Problem Essential hypertension I10 Active 83580178 Problem Major depressive disorder, recurrent episode, moderate F33.1 Active 192397918 Problem 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 Active 691641 02 Problem Arthritis M19.90 Active 8816026 Problem 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 Active 469988180 Problem Hypertension, benign I10 Active 48781672 Problem Onychomycosis B35.1 Active 932636 008 Problem Major depressive disorder in full remission F32.5 Active 96327042 Problem Sciatica, left side M54.32 Active 65005157 Problem Varicose veins of both lower extremities I83.93 Active 18377417 Problem COPD exacerbation J44.1 Active 19 4489840 Problem Fatigue R53.83 Active 79543354 Problem Mild persistent asthma without complication J45.30 Active 589539433 Problem Slow transit constipation K59.01 Acti ve 52560816 Problem Chronic obstructive pulmonary disease, unspecified COPD ty pe J44.9 Active 51853252 Problem Body mass index (BMI) 40.0-44.9, adult Z68.41 Active 245115123 Problem Unspecified psychosis not du e to a substance or known physiological condition F29 Active 357341485 ALLERGIES No Information ENCOUNTERS Encounter Location Date Diagnosis [place] [address] [address] Jan, [facility] [address] [address] Dec, [place] [address] [address] Nov, Major depressive disorder, r ecurrent episode, moderate F33.1 ; Panic disorder without agoraphobia F41.0 and Morbid obesity E66.01 [place] [address] [address] Nov, Major depressive disorder, r ecurrent episode, moderate F33.1 and Panic disorder without agoraphobia F41.0 [place] [address] [address] Nov, [place] [address] [address] [place] [id number] [place] [address] Nov, [facility] [address] [place] [id number] [place] [address] Nov, COPD exacerbation J44.1 ; Ex posure to viral disease Z20.828 ; Sore throat J02.9 and Community acquired pneumonia of right lower lobe of lung J18.[address] [address] Nov, Essential hypertension I10 [facility] [address] [place] [id number] [place] [address] Nov, [id number] [place] [address] 11 Nov, 2019 [place] [address] [address] [facility] [id number] [address] [place] [address] 11 Nov, 2019 Essential hypertension I10 a nd 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 arthropathy E11.610 [place] [address] [address] [facility] [id number] [address] [place] [address] 10 Nov, 2019 Abdominal pain, right upper quadrant R10.11 [place] [address] [address] [facility] [id number] [address] [place] [address] 19 Oct, 2019 Major depressive disorder, r ecurrent episode, moderate F33.1 and Panic disorder without agoraphobia F41.0 [place] [address] [facility] [id number] [address] [place] [address] 13 Oct, 2019 Abdominal pain, right upper quadrant R10.11 [place] [address] [address] [facility] [id number] [address] [place] [address] 29 Sep, [address] [id number] [place] [address] Sep, [place] [address] [address] [facility] [id number] [address] [place] [address] 15 Sep, 2019 Abdominal pain, right upper quadrant R10.11 [place] [address] [address] [facility] [id number] [address] [place] [address] 06 Sep, 2019 Panic disorder without agora phobia F41.0 ; Major depressive disorder, recurrent episode, moderate F33.1 and Morbid obesity E66.01 [place] [address] [address] [facility] [id number] [address] [place] [address] 26 Aug, 2019 Bronchitis J40 [place] [address] [address] [facility] [id number] [address] [place] [address] Aug, Sciatica, left side M54.32 a nd Morbid obesity E66.01 [place] [address] [address] [facility] [id number] [address] [place] [address] Aug, [place] [address] [facility] [id number] [address] [place] [address] Aug, Sciatica, left side M54.32 [place] [address] [address] Aug, Neuropathy G62.9 ; Onychomyc osis B35.1 ; Callus of foot L84 and Skin fissures R23.4 [place] [address] [address] Jul, [place] [address] [address] Jul, Morbid obesity E66.01 [place] [address] [address] Jul, Unspecified psychosis not du e to a substance or known physiological condition F29 ; Chronic obstructive pulmonary disease, unspecified COPD type J44.9 and Body mass index (BMI) 40.0-44.9, adult Z68.41 [place] [address] [address] Jun, [place] [address] [address] Jun, Morbid obesity E66.01 [place] [address] [address] May, Morbid obesity E66.01 [place] [address] [address] May, Encounter for immunization Z 23 [place] [address] [place] [id number] [address] [place] [address] May, Major depressive disorder, r ecurrent episode, moderate F33.1 ; Panic disorder without agoraphobia F41.0 and Morbid obesity E66.01 [place] [address] [place] [id number] [place] [address] May, Major depressive disorder in full remission F32.5 and Panic disorder without agoraphobia F41.0 [place] [address] [place] [address] Apr, Morbid obesity E66.01 [place] [address] [place] [id number] [place] [address] Apr, Slow transit constipation K5 9.01 and Cellulitis of left lower extremity L03.116 [place] [address] [address] Apr, Morbid obesity E66.01 [place] [address] [address] Apr, [place] [address] [address] Apr, Major depressive disorder, r ecurrent episode, moderate F33.1 and Panic disorder without agoraphobia F41.0 [place] [address] [address] Mar, Viral upper respiratory trac t infection J06.9 [place] [address] [address] Mar, Bronchitis J40 and Encounter for immunization Z23 [place] [address] [place] [id number] [place] [address] Mar, Morbid obesity E66.01 [place] [address] [place] [id number] [place] [address] Feb, Major depressive disorder, r ecurrent episode, moderate F33.1 and Panic disorder without agoraphobia F41.0 [place] [address] [place] [id number] [place] [address] Feb, Morbid obesity E66.01 [place] [address] [place] [id number] [place] [address] 06 Feb, 2019 Onychomycosis B35.1 ; Type 2 diabetes mellitus with diabetic neuropathic arthropathy E11.610 and Xerosis of skin L85.3 [facility] [address] [facility] [id number] [address] [place] [address] Feb, Major depressive disorder, r ecurrent episode, moderate F33.1 ; Panic disorder without agoraphobia F41.0 and Morbid obesity E66.01 [facility] [address] [facility] [id number] [address] [place] [address] Jan, Major depressive disorder in full remission F32.5 and Panic disorder without agoraphobia F41.0 [place] [address] [facility] [id number] [address] [place] [address] Jan, Pneumonia of both lower lobe s due to infectious organism J18.1 and Morbid obesity E66.01 [place] [address] [facility] [id number] [address] [place] [address] Jan, [place] [address] [address] [facility] [id number] [address] [place] [address] Jan, Major depressive disorder in full remission F32.5 and Panic disorder without agoraphobia F41.0 [place] [address] [facility] [id number] [address] [place] [address] Jan, [place] [address] [address] [facility] [id number] [address] [place] [address] Jan, Major depressive disorder, r ecurrent episode, moderate F33.1 ; Panic disorder without agoraphobia F41.0 and Morbid obesity E66.01 [place] [address] [facility] [id number] [address] [place] [address] Dec, Bilious vomiting with nausea R11.14 ; Coughing R05 and Choking, subsequent encounter T17.308D [place] [address] [address] [facility] [id number] [address] [place] [address] Dec, Morbid obesity E66.01 [place] [address] [facility] [id number] [address] [place] [address] Dec, Major depressive disorder, r ecurrent episode, moderate F33.1 and Panic disorder without agoraphobia F41.0 [place] [address] [place] [id number] [address] [place] [address] Dec, [place] [address] [address] Dec, Major depressive disorder, r ecurrent episode, moderate F33.1 [place] [address] [address] Nov, Major depressive disorder, r ecurrent episode, moderate F33.1 ; Panic disorder without agoraphobia F41.0 and Morbid obesity E66.01 [place] [address] [address] Nov, Morbid obesity E66.01 [place] [address] [address] Nov, Major depressive disorder, r ecurrent episode, moderate F33.1 and Panic disorder without agoraphobia F41.0 [facility] [address] [address] Nov, Allergic reaction, initial e ncounter T78.40XA and Morbid obesity E66.01 [place] [address] [address] Nov, [place] [address] [address] Nov, Morbid obesity E66.01 ; Swal lowing problem R13.10 and Hypertension, benign I10 [facility] [address] [place] [id number] [place] [address] 07 Nov, 2018 Morbid obesity E66.01 ; COPD exacerbation J44.1 and Non- recurrent acute suppurative otitis media of left ear without spontaneous rupture of tympanic membrane H66.002 [place] [address] [place] [id number] [place] [address] 07 Nov, 2018 Onychomycosis B35.1 ; Neurop athy G62.9 and Fissure in skin of foot R23.4 [facility] [address] [id number] [address] [place] [address] October, Major depressive disorder, r ecurrent episode, moderate F33.1 ; Panic disorder without agoraphobia F41.0 and Morbid obesity E66.01 [facility] [address] [id number] [address] [place] [address] October, Viral upper respiratory trac t infection J06.9 [facility] [address] [id number] [address] [place] [address] October, [facility] [address] [id number] [address] [place] [address] October, Major depressive disorder, r ecurrent episode, moderate F33.1 and Panic disorder without agoraphobia F41.0 [facility] [address] [id number] [address] [place] [address] October, [facility] [address] [id number] [address] [place] [address] October, [facility] [address] [facility] [id number] [address] [place] [address] October, [facility] [address] [id number] [address] [place] [address] October, [facility] [address] [facility] [id number] [address] [place] [address] October, [facility] [address] [id number] [address] [place] [address] October, [facility] [address] [facility] [id number] [address] [place] [address] October, Major depressive disorder, r ecurrent episode, moderate F33.1 and Panic disorder without agoraphobia F41.0 [facility] [address] [facility] [id number] [address] [place] [address] Sep, Morbid obesity E66.01 and Vane mbar neuritis M54.16 [facility] [address] [facility] [id number] [address] [place] [address] Sep, Panic disorder without agora phobia F41.0 and Major depressive disorder, recurrent episode, moderate F33.1 [facility] [address] [facility] [id number] [address] [place] [address] Sep, Gastroenteritis K52.9 ; Low back pain M54.5 ; Other chronic pain G89.29 and Morbid obesity E66.01 [facility] [address] [facility] [id number] [address] [place] [address] Sep, Major depressive disorder, r ecurrent episode, moderate F33.1 ; Panic disorder without agoraphobia F41.0 and 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 [place] [address] [place] [id number] [address] [place] [address] Sep, Panic disorder without agora phobia F41.0 [facility] [address] [place] [address] Sep, Panic disorder without agora phobia F41.0 [facility] [address] [place] [id number] [place] [address] Aug, Panic disorder without agora phobia F41.0 ; Major depressive disorder, recurrent episode, moderate F33.1 ; 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 ; Psychotic disorder F29 ; Tardive dyskinesia G24.01 and Morbid obesity E66.01 [facility] [address] [place] [id number] [place] [address] Aug, Dysthymic disorder F34.1 and Psychotic disorder F29 [place] [address] [place] [address] Aug, Encounter for Medicare annua l wellness exam Z00.00 ; Morbid obesity E66.01 and 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 [facility] [address] [place] [id number] [place] [address] Aug, Dysthymic disorder F34.1 and Psychotic disorder F29 [place] [address] [address] Aug, Neuropathy G62.9 ; Onychomyc osis B35.1 and Xerosis of skin L85.3 [place] [address] [address] Jul, [place] [address] [address] Jul, Mood disorder F39 ; Wheezing R06.2 ; Choking, initial encounter T17.308A and Coughing R05 [place] [address] [address] Jul, Low back pain M54.5 [facility] [address] [address] Jun, Flu-like symptoms R68.89 ; B ID 45.0-49.9, adult Z68.42 ; COPD exacerbation J44.1 and Acute bronchitis J20.9 [place] [address] [address] Jun, [place] [address] [address] May, [place] [address] [address] May, Onychomycosis B35.1 and 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 [place] [address] [address] May, Low back pain M54.5 and Abdoulaye a leg R60.0 [place] [address] [address] May, BMI 45.0-49.9, adult Z68.42 ; Well woman exam with routine gynecological exam Z01.419 and Breast cancer screening Z12.31 [place] [address] [address] 19 Apr, 2018 Arthritis M19.90 [place] [address] [place] [id number] [place] [address] 16 Apr, 2018 Arthritis M19.90 and Otalgia of both ears H92.03 [place] [address] [address] 28 Feb, 2018 [place] [address] [address] 28 Feb, 2018 Low back pain M54.5 ; Other chronic pain G89.29 ; Exertional asthma J45.990 and Encounter for immunization Z23 [place] [address] [address] Feb, Skin fissures R23.4 ; Neurop athy G62.9 and Onychomycosis B35.1 [place] [address] [address] 05 Feb, 2018 Dysthymic disorder F34.1 [place] [address] [address] 04 Feb, 2018 [place] [address] [address] Jan, [place] [address] [address] Jan, Abrasion of right elbow, ini tial encounter S50.311A ; Abrasion, right knee, initial encounter S80.211A and Sprain of other ligament of right ankle, initial encounter S93.491A [place] [address] [place] [id number] [place] [address] Jan, [facility] [address] [place] [id number] [place] [address] Jan, Injury of left ankle, initia l encounter S99.912A ; Fall down stairs, initial encounter W10.8XXA and BMI 45.0-49.9, adult Z68.42 [place] [address] [place] [address] Jan, COPD exacerbation J44.1 [place] [address] [place] [id number] [place] [address] Jan, 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 [place] [address] [address] Jan, Bronchitis J40 and Acute sup purative otitis media of left ear without spontaneous rupture of tympanic membrane, recurrence not specified H66.002 [place] [address] [address] Jan, [place] [address] [address] Jan, Bronchitis J40 and BMI 40.0- 44.9, adult Z68.41 [place] [address] [place] [address] Jan, [place] [address] [place] [id number] [place] [address] Dec, Gastric pain R10.9 [place] [address] [place] [id number] [place] [address] Dec, [place] [address] [address] Dec, History of illicit drug use Z87.898 ; Neuropathy G62.9 ; COPD (chronic obstructive pulmonary disease) with chronic bronchitis J44.9 and Acute pain of right knee M25.561 [place] [address] [place] [id number] [place] [address] Nov, [place] [address] [place] [id number] [place] [address] Nov, Onychomycosis B35.1 and Cont usion of left foot, subsequent encounter S90.32XD [place] [address] [address] 13 Nov, 2017 COPD exacerbation J44.1 [place] [address] [address] Sep, [place] [address] [address] Sep, Dysthymic disorder F34.1 ; T obacco abuse Z72.0 ; Pain in right knee M25.561 ; Pain in left knee M25.562 ; Other chronic pain G89.29 and BMI 40.0- 44.9, adult Z68.41 [place] [address] [address] Aug, Major depressive disorder, r ecurrent episode, moderate F33.1 and 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 [place] [address] [address] Aug, Dysthymic disorder F34.1 ; N on-pressure chronic ulcer of left thigh, unspecified ulcer stage L97.129 ; Tobacco abuse Z72.0 ; Mild chronic obstructive pulmonary disease J44.9 and Forgetfulness R68.89 [place] [address] [address] Aug, Onychomycosis B35.1 ; Fissur e in skin of foot R23.4 and Foot callus L84 [facility] [address] [address] Jul, Right medial knee pain M25.5 61 ; Upper respiratory tract infection, unspecified type J06.9 and BMI 40.0-44.9, adult Z68.41 [facility] [address] [address] Jul, Nausea and vomiting, intract ability of vomiting not specified, unspecified vomiting type R11.2 ; Left ear pain H92.02 and Gastric pain R10.9 [facility] [address] [facility] [id number] [address] [place] [address] Apr, Encounter for immunization Z 23 [facility] [address] [facility] [id number] [address] [place] [address] Apr, Onychomycosis B35.1 ; Xerosi s of skin L85.3 ; Neuropathy G62.9 and 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 [facility] [address] [facility] [id number] [address] [place] [address] Jan, Onychomycosis B35.1 and Neur opathy G62.9 [facility] [address] [facility] [id number] [address] [place] [address] Dec, [facility] [address] [place] [id number] [place] [address] Dec, [facility] [address] [place] [id number] [place] [address] Nov, [facility] [address] [place] [id number] [place] [address] Aug, [facility] [address] [place] [id number] [place] [address] Aug, [facility] [address] [place] [id number] [place] [address] Jul, [facility] [address] [facility] [id number] [address] [place] [address] Jul, [facility] [address] [facility] [id number] [address] [place] [address] Jul, Decubitus ulcer of left thig h, stage 2 L89.892 [facility] [address] [facility] [id number] [address] [place] [address] Jul, Decubitus ulcer of left thig h, stage 2 L89.892 [facility] [address] [id number] [address] [place] [address] 17 Jul, 2016 [facility] [address] [id number] [address] [place] [address] 15 Jul, 2016 Decubitus ulcer of left thig h, stage 2 L89.892 [facility] [address] [id number] [address] [place] [address] 14 Jul, 2016 [facility] [address] [id number] [address] [place] [id number] 13 Jul, 2016 Cellulitis of other specifie d site L03.818 ; Illicit drug use F19.90 and Decubitus ulcer of left thigh, stage 2 L89.892 [facility] [address] [facility] [id number] [address] [place] [id number] 08 Jul, 2016 [facility] [address] [facility] [id number] [address] [place] [id number] 06 Jul, 2016 Cellulitis of right breast N 61.0 [facility] [address] [id number] [address] [place] [id number] Jun, [facility] [address] [facility] [id number] [address] [place] [id number] Jun, [facility] [address] [facility] [id number] [address] [place] [id number] Jun, Wheezing R06.2 and Arthralgi a, unspecified joint M25.50 [facility] [address] [id number] [address] [place] [id number] May, [facility] [address] [facility] [id number] [address] [place] [id number] May, [facility] [address] [facility] [id number] [address] [place] [id number] May, [facility] [address] [facility] [id number] [address] [place] [id number] May, Shortness of breath R06.02 [facility] [address] [id number] [address] [place] [id number] 02 May, 2016 Onychomycosis B35.1 and Fiss ure in skin of foot R23.4 [facility] [address] [id number] [address] [place] [address] 28 Apr, 2016 [facility] [address] [id number] [address] [place] [address] 18 Apr, 2016 Dizziness R42 [facility] [address] [id number] [address] [place] [address] 14 Apr, 2016 Shortness of breath R06.02 ; Essential hypertension I10 ; Dizziness R42 and On home oxygen therapy Z99.81 [facility] [address] [id number] [address] [place] [address] 10 Apr, 2016 [facility] [address] [id number] [address] [place] [address] 08 Apr, 2016 [facility] [address] [id number] [address] [place] [address] Apr, [facility] [address] [id number] [address] [place] [address] Apr, [facility] [address] [id number] [address] [place] [address] Apr, [facility] [address] [id number] [address] [place] [address] Apr, [facility] [address] [id number] [address] [place] [address] Apr, [facility] [address] [id number] [address] [place] [address] Mar, Mild chronic obstructive pul monary disease J44.9 [facility] [address] [id number] [address] [place] [address] Mar, [facility] [address] [place] [id number] [address] [place] [address] Mar, Epigastric pain R10.13 ; Low back pain M54.5 ; Other chronic pain G89.29 and Breast cancer screening Z12.39 [facility] [address] [id number] [address] [place] [address] Mar, [facility] [address] [id number] [address] [place] [address] Mar, [facility] [id number] [place] [address] Feb, [place] [address] [address] Feb, [facility] [id number] [place] [address] Feb, Fissure in skin of foot R23. 4 and Onychomycosis B35.1 [place] [address] [address] Jan, Agoraphobia F40.00 [place] [address] [address] Dec, Agoraphobia F40.00 [place] [address] [place] [id number] [place] [address] 07 Dec, 2015 Mild persistent asthma witho ut complication J45.30 ; Dysthymic disorder F34.1 and Upper respiratory tract infection, unspecified type J06.9 [place] [address] [place] [id number] [address] [place] [address] Nov, Agoraphobia F40.00 [place] [address] [place] [id number] [place] [address] October, Agoraphobia F40.00 [place] [address] [place] [id number] [place] [address] Sep, Panic disorder without agora phobia F41.0 ; Agoraphobia F40.00 and Dysthymic disorder F34.1 [place] [address] [place] [id number] [address] [place] [address] Sep, Panic attacks F41.0 [place] [address] [facility] [id number] [address] [place] [address] Sep, [place] [address] [place] [id number] [place] [address] Sep, Panic disorder without agora phobia F41.0 ; Varicose veins of both lower extremities I83.93 and Fatigue R53.83 [place] [address] [place] [id number] [place] [address] Sep, Fatigue R53.83 [place] [address] [place] [id number] [place] [address] Sep, [place] [address] [place] [id number] [place] [address] Aug, [place] [address] [place] [id number] [address] [place] [address] Aug, [place] [address] [place] [id number] [place] [address] Aug, Panic disorder without agora phobia F41.0 ; Agoraphobia F40.00 and Dysthymic disorder F34.1 [place] [address] [place] [id number] [address] [place] [address] Aug, Type 2 diabetes mellitus wit h diabetic neuropathic arthropathy E11.610 [place] [address] [place] [id number] [address] [place] [address] Aug, Shortness of breath R06.02 ; Panic attacks F41.0 ; COPD (chronic obstructive pulmonary disease) J44.9 ; Tobacco abuse Z72.0 ; Family history of diabetes mellitus Z83.3 and Weight gain R63.5 [place] [address] [place] [id number] [address] [place] [address] Aug, [facility] [address] [facility] [id number] [address] [place] [address] Jul, [facility] [address] [id number] [address] [place] [address] Jun, Onychomycosis B35.1 ; Neurop athy G62.9 and Impaired circulation I99.9 [facility] [address] [address] [id number] [address] [place] [address] Mar, Fissure in skin of foot R23. 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 [facility] [address] [place] [id number] [address] [place] [address] 18 Feb, 2015 Family history of coronary a rteriosclerosis V17.3 [place] [address] [address] Feb, Allergic rhinitis due to darien agnieszka 477.0 ; Unspecified breast screening V76.10 ; Anxiety 300.00 and Family history of coronary arteriosclerosis V17.3 [facility] [id number] [place] [address] Jan, [facility] [address] [place] [id number] [address] [place] [address] Dec, [facility] [address] [address] [id number] [address] [place] [address] Dec, Onychomycosis 110.1 and Skin fissures 709.8 [facility] [address] [facility] [id number] [address] [place] [address] Sep, [facility] [address] [place] [id number] [address] [place] [address] Sep, [facility] [address] [id number] [address] [place] [address] Aug, [facility] [address] [id number] [address] [place] [address] Aug, [facility] [address] [id number] [address] [place] [address], [place] [address] Jul, [facility] [address] [id number] [address] [place] [address], [place] [address] Jul, [facility] [address] [id number] [address] [place] [address], [place] [address] Jun, [facility] [address] [id number] [address] [place] [address], [place] [address] Jun, [facility] [address] [id number] [address] [place] [address], [place] [address] Jun, [facility] [address] [id number] [address] [place] [address], [place] [address] Jun, [facility] [address] [id number] [address] [place] [address], [place] [address] Jun, [facility] [address] [id number] [address] [place] [address], [place] [address] May, [facility] [address] [id number] [address] [place] [address], [place] [address] May, [facility] [address] [id number] [address] [place] [address], [place] [address] May, [facility] [address] [id number] [address] [place] [address], [place] [address] May, [facility] [address] [id number] [address] [place] [address], [place] [address] May, [facility] [address] [id number] [address] [place] [address], [place] [address] May, [facility] [address] [id number] [address] [place] [address], [place] [address] May, [facility] [address] [id number] [address] [place] [address], [place] [address] May, [facility] [address] [id number] [address] [place] [address], [place] [address] Apr, [facility] [address] [id number] [address] [place] [address], [place] [address] Apr, [facility] [address] [id number] [address] [place] [address], [place] [address] Apr, [facility] [address] [id number] [address] [place] [address], [place] [address] Apr, [facility] [address] [id number] [address] [place] [address], [place] [address] Apr, [facility] [address] [id number] [address] [place] [address], [place] [address] Apr, [facility] [address] [id number] [address] [place] [address], [place] [address] Apr, [facility] [address] [id number] [address] [place] [address], [place] [address] Apr, [facility] [address] [id number] [address] [place] [address], [place] [address] Apr, [facility] [address] [id number] [address] [place] [address], [place] [address] Apr, [facility] [address] [id number] [address] [place] [address], [place] [address] Mar, [facility] [address] [id number] [address] [place] [address], [place] [address] Mar, [facility] [address] [id number] [address] [place] [address], [place] [address] Mar, [facility] [address] [id number] [address] [place] [address], [place] [address] Mar, [facility] [address] [id number] [address] [place] [address], [place] [address] Mar, [facility] [address] [id number] [address] [place] [address], [place] [address] Mar, [facility] [address] [id number] [address] [place] [address], [place] [address] Mar, [facility] [address] [id number] [address] [place] [address], [place] [address] Mar, [facility] [address] [id number] [address] [place] [address], [place] [address] Mar, [facility] [address] [id number] [address] [place] [address], [place] [address] Mar, [facility] [address] [id number] [address] [place] [address], [place] [address] Mar, [facility] [address] [id number] [address] [place] [address], [place] [address] Mar, [facility] [address] [id number] [address] [place] [address], [place] [address] Mar, [facility] [address] [id number] [address] [place] [address], [place] [address] Mar, [facility] [address] [id number] [address] [place] [address], [place] [address] Mar, [facility] [address] [id number] [address] [place] [address], [place] [address] Mar, [facility] [address] [id number] [address] [place] [address], [place] [address] 20 Mar, 2014 [facility] [address] [id number] [address] [place] [address], [place] [address] 16 Mar, 2014 [facility] [address] [id number] [address] [place] [address], [place] [address] 16 Mar, 2014 [facility] [address] [id number] [address] [place] [address], [place] [address] 15 Mar, 2014 [facility] [address] [id number] [address] [place] [address], [place] [address] 14 Mar, 2014 [facility] [address] [id number] [address] [place] [address] 14 Mar, 2014 [facility] [address] [id number] [address] [place] [address], [place] [address] 14 Mar, 2013 [facility] [address] [id number] [address] [place] [address] 14 Mar, 2013 [facility] [address] [id number] [address] [place] [address], [place] [address] Mar, 2013 [facility] [address] [id number] [address] [place] [address] Mar, 2013 [facility] [address] [id number] [address] [place] [address], [place] [address] Mar, 2013 [facility] [address] [id number] [address] [place] [address] Mar, [facility] [address] [id number] [address] [place] [address] 30 Sep, 2013 [facility] [address] [id number] [address] [place] [address], [place] [address] 30 Sep, 2013 [facility] [address] [id number] [address] [place] [address] 30 Sep, 2013 [facility] [address] [id number] [address] [place] [address], [place] [address] 30 Sep, 2013 [facility] [address] [id number] [address] [place] [address] 26 Sep, 2013 [facility] [address] [id number] [address] [place] [address] 26 Sep, 2013 [facility] [address] [id number] [address] [place] [address], [place] [address] 09 Sep, 2013 [facility] [address] [id number] [address] [place] [address] 09 Sep, 2013 [facility] [address] [id number] [address] [place] [address], [place] [address] 03 Sep, 2013 [facility] [address] [id number] [facility] [place] [address] Feb, 2013 [facility] [address] [id number] [facility] [place] [address] Feb, 2013 [facility] [address] [id number] [facility] [place] [address] Feb, [facility] [address] [id number] [address] [place] [address], [place] [address] Jan, [facility] [address] [id number] [address] [place] [address], [place] [address] Jan, [facility] [address] [id number] [address] [place] [address], [place] [address] Jan, [facility] [address] [id number] [address] [place] [address], [place] [address] Jan, [facility] [address] [id number] [address] [place] [address], [place] [address] Jan, [facility] [address] [id number] [address] [place] [address], [place] [address] Jan, [facility] [address] [id number] [address] [place] [address], [place] [address] Jan, [facility] [address] [id number] [address] [place] [address], [place] [address] Jan, [facility] [address] [id number] [address] [place] [address], [place] [address] Jan, [facility] [address] [id number] [address] [place] [address], [place] [address] Jan, [facility] [address] [id number] [address] [place] [address], [place] [address] Jan, [facility] [address] [id number] [address] [place] [address], [place] [address] Jan, [facility] [address] [id number] [address] [place] [address], [place] [address] Jan, [facility] [address] [id number] [facility] [place] [address] Dec, [facility] [address] [id number] [facility] [place] [address] Dec, [facility] [address] [id number] [facility] [place] [address] Dec, [facility] [address] [id number] [address] [place] [address], [place] [address] Dec, [facility] [address] [id number] [address] [place] [address], [place] [address] Dec, [facility] [address] [id number] [address] [place] [address], [place] [address] Dec, [facility] [address] [id number] [address] [place] [address], [place] [address] Dec, [facility] [address] [id number] [address] [place] [address], [place] [address] Dec, [facility] [address] [id number] [address] [place] [address], [place] [address] Dec, [facility] [address] [id number] [address] [place] [address], [place] [address] Dec, [facility] [address] [id number] [address] [place] [address], [place] [address] Dec, [facility] [address] [id number] [address] [place] [address], [place] [address] Dec, [facility] [address] [id number] [address] [place] [address], [place] [address] Dec, [facility] [address] [id number] [address] [place] [address], [place] [address] Dec, [facility] [address] [id number] [address] [place] [address], [place] [address] Dec, [facility] [address] [id number] [address] [place] [address], [place] [address] Dec, [facility] [address] [id number] [facility] [place] [address] Dec, [facility] [address] [id number] [address] [place] [address], [place] [address] Dec, [facility] [address] [id number] [address] [place] [address], [place] [address] Nov, [facility] [address] [id number] [address] [place] [address], [place] [address] Nov, [facility] [address] [id number] [address] [place] [address], [place] [address] Nov, [facility] [address] [id number] [address] [place] [address], [place] [address] Nov, [facility] [address] [id number] [address] [place] [address], [place] [address] Nov, [facility] [address] [id number] [address] [place] [address], [place] [address] Nov, [facility] [address] [id number] [address] [place] [address], [place] [address] Nov, [facility] [address] [id number] [address] [place] [address], [place] [address] Nov, [facility] [address] [id number] [address] [place] [address], [place] [address] Nov, [facility] [address] [id number] [address] [place] [address], [place] [address] Nov, [facility] [address] [id number] [address] [place] [address], [place] [address] Nov, [facility] [address] [id number] [address] [place] [address], [place] [address] Nov, [facility] [address] [id number] [address] [place] [address], [place] [address] Nov, [facility] [address] [id number] [facility] [place] [address] Nov, [facility] [address] [id number] [facility] [place] [address] Nov, [facility] [address] [id number] [address] [place] [address], [place] [address] Nov, [facility] [address] [id number] [address] [place] [address], [place] [address] Nov, [facility] [address] [id number] [address] [place] [address], [place] [address] Nov, [facility] [address] [id number] [address] [place] [address], [place] [address] Nov, [facility] [address] [id number] [address] [place] [address], [place] [address] Nov, [facility] [address] [id number] [address] [place] [address], [place] [address] October, [facility] [address] [id number] [address] [place] [address], [place] [address] October, [facility] [address] [id number] [address] [place] [address], [place] [address] October, [facility] [address] [id number] [address] [place] [address], [place] [address] October, [facility] [address] [id number] [address] [place] [address], [place] [address] Sep, [facility] [address] [id number] [address] [place] [address], [place] [address] Sep, [facility] [address] [id number] [address] [place] [address], [place] [address] Sep, [facility] [address] [id number] [address] [place] [address], [place] [address] Sep, [facility] [address] [id number] [address] [place] [address], [place] [address] Sep, [facility] [address] [id number] [facility] [place] [address] Sep, [facility] [address] [id number] [address] [place] [address], [place] [address] Sep, [facility] [address] [id number] [address] [place] [address], [place] [address] Sep, [facility] [address] [id number] [address] [place] [address], [place] [address] Sep, [facility] [address] [id number] [address] [place] [address], [place] [address] Aug, [facility] [address] [id number] [address] [place] [address], [place] [address] Aug, [facility] [address] [id number] [address] [place] [address], [place] [address] Aug, [facility] [address] [id number] [address] [place] [address], [place] [address] Aug, [facility] [address] [id number] [address] [place] [address], [place] [address] Aug, [facility] [address] [id number] [address] [place] [address], [place] [address] Aug, [facility] [address] [id number] [address] [place] [address], [place] [address] Aug, [facility] [address] [id number] [address] [place] [address], [place] [address] Aug, [facility] [address] [id number] [address] [place] [address], [place] [address] Jul, [facility] [address] [id number] [address] [place] [address], [place] [address] Jul, [facility] [address] [id number] [address] [place] [address], [place] [address] Jun, [facility] [address] [id number] [address] [place] [address], [place] [address] 30 Jun, 2013 [facility] [address] [id number] [address] [place] [address], [place] [address] Jun, [facility] [address] [id number] [address] [place] [address], [place] [address] Jun, [facility] [address] [id number] [address] [place] [address], [place] [address] Jun, [facility] [address] [id number] [address] [place] [address], [place] [address] Jun, [facility] [address] [id number] [address] [place] [address], [place] [address] Jun, [facility] [address] [id number] [address] [place] [address], [place] [address] Jun, [facility] [address] [id number] [address] [place] [address], [place] [address] Jun, [facility] [address] [id number] [address] [place] [address], [place] [address] Jun, [facility] [address] [id number] [address] [place] [address], [place] [address] Jun, [facility] [address] [id number] [address] [place] [address], [place] [address] Jun, [facility] [address] [id number] [address] [place] [address], [place] [address] May, [facility] [address] [id number] [address] [place] [address], [place] [address] May[facility] [facility] [address] [id number] [address] [place] [address], [place] [address] May, [facility] [address] [id number] [address] [place] [address], [place] [address] May, [facility] [address] [id number] [address] [place] [address], [place] [address] May, [facility] [address] [id number] [address] [place] [address], [place] [address] May, [facility] [address] [id number] [address] [place] [address], [place] [address] May, [facility] [address] [id number] [address] [place] [address], [place] [address] May, [facility] [address] [id number] [address] [place] [address], [place] [address] May, [facility] [address] [id number] [address] [place] [address], [place] [address] May, [facility] [address] [id number] [address] [place] [address], [place] [address] May, [facility] [address] [id number] [address] [place] [address], [place] [address] May, [facility] [address] [id number] [address] [place] [address], [place] [address] May, [facility] [address] [id number] [address] [place] [address], [place] [address] Apr, [facility] [address] [id number] [address] [place] [address], [place] [address] Apr, [facility] [address] [id number] [address] [place] [address], [place] [address] Mar, [facility] [address] [id number] [address] [place] [address] Mar, [facility] [address] [id number] [address] [place] [address], [place] [address] 24 Feb, 2013 [facility] [address] [id number] [address] [place] [address], [place] [address] 23 Feb, 2013 [facility] [address] [id number] [address] [place] [address] 05 Feb, 2013 [facility] [address] [id number] [address] [place] [address] Feb, [facility] [address] [id number] [address] [place] [address], [place] [address] Jan, [facility] [address] [id number] [address] [place] [address], [place] [address] Jan, [facility] [address] [id number] [address] [place] [address], [place] [address] Jan, [facility] [address] [id number] [address] [place] [address], [place] [address] Jan, [facility] [address] [id number] [address] [place] [address], [place] [address] Jan, [facility] [address] [id number] [address] [place] [address], [place] [address] Jan, [facility] [address] [id number] [address] [place] [address], [place] [address] Dec, [facility] [address] [id number] [address] [place] [address], [place] [address] Dec, [facility] [address] [id number] [address] [place] [address], [place] [address] Dec, [facility] [address] [id number] [address] [place] [address], [place] [address] Dec, [facility] [address] [id number] [address] [place] [address], [place] [address] Nov, [facility] [address] [id number] [address] [place] [address], [place] [address] October, [facility] [address] [id number] [address] [place] [address], [place] [address] October, [facility] [address] [id number] [address] [place] [address], [place] [address] October, [facility] [address] [id number] [address] [place] [address], [place] [address] Sep, [facility] [address] [id number] [address] [place] [address], [place] [address] Sep, [facility] [address] [id number] [address] [place] [address], [place] [address] Jun, [facility] [address] [id number] [address] [place] [address], [place] [address] Jun, [facility] [address] [id number] [address] [place] [address], [place] [address] Jun, [facility] [address] [id number] [address] [place] [address], [place] [address] Apr, [facility] [address] [id number] [address] [place] [address], [place] [address] Apr, [facility] [address] [id number] [address] [place] [address], [place] [address] Apr, [facility] [address] [id number] [address] [place] [address], [place] [address] Apr, [facility] [address] [id number] [address] [place] [address], [place] [address] Mar, [facility] [address] [id number] [address] [place] [address], [place] [address] Mar, [facility] [address] [id number] [address] [place] [address], [place] [address] Mar, [facility] [address] [id number] [address] [place] [address], [place] [address] Mar, [facility] [address] [id number] [address] [place] [address], [place] [address] 29 Feb, 2012 [facility] [address] [id number] [address] [place] [address], [place] [address] 27 Feb, 2012 [facility] [address] [id number] [address] [place] [address], [place] [address] Feb, [facility] [address] [id number] [address] [place] [address], [place] [address] Jan, [facility] [address] [id number] [address] [place] [address], [place] [address] Jan, [facility] [address] [id number] [address] [place] [address], [place] [address] Jan, [facility] [address] [id number] [address] [place] [address], [place] [address] Jan, [facility] [address] [id number] [address] [place] [address], [place] [address] Dec, [facility] [address] [id number] [address] [place] [address], [place] [address] Dec, [facility] [address] [id number] [address] [place] [address], [place] [address] Nov, [facility] [address] [id number] [address] [place] [address], [place] [address] Nov, [facility] [address] [id number] [address] [place] [address], [place] [address] October, [facility] [address] [id number] [address] [place] [address], [place] [address] October, [facility] [address] [id number] [address] [place] [address], [place] [address] October, [facility] [address] [id number] [address] [place] [address], [place] [address] Sep, [facility] [address] [id number] [address] [place] [address], [place] [address] Sep, [facility] [address] [id number] [address] [place] [address], [place] [address] Sep, [facility] [address] [id number] [address] [place] [address], [place] [address] Aug, [facility] [address] [id number] [address] [place] [address], [place] [address] Aug, [facility] [address] [id number] [address] [place] [address], [place] [address] 15 Aug, 2011 [facility] [address] [id number] [address] [place] [address], [place] [address] 15 Aug, 2011 [facility] [address] [id number] [address] [place] [address], [place] [address] 07 Aug, 2011 [facility] [address] [id number] [address] [place] [address], [place] [address] 23 Jul, 2011 [facility] [address] [id number] [address] [place] [address], [place] [address] 16 Jul, 2011 [facility] [address] [id number] [address] [place] [address], [place] [address] 13 Jul, 2011 [facility] [address] [id number] [address] [place] [address], [place] [address] 09 Jul, 2011 [facility] [address] [id number] [address] [place] [address], [place] [address] 07 Jul, 2011 [facility] [address] [id number] [address] [place] [address], [place] [address] 06 Jul, 2011 [facility] [address] [id number] [address] [place] [address], [place] [address] 03 Jul, 2011 [facility] [address] [id number] [address] [place] [address], [place] [address] Jul, [facility] [address] [id number] [address] [place] [address], [place] [address] Jun, [facility] [address] [id number] [address] [place] [address], [place] [address] Jun, [facility] [address] [id number] [address] [place] [address], [place] [address] May, [facility] [address] [id number] [address] [place] [address], [place] [address] May, [facility] [address] [id number] [address] [place] [address], [place] [address] 08 May, 2011 [facility] [address] [id number] [address] [place] [address], [place] [address] 08 May, 2011 [facility] [address] [id number] [address] [place] [address], [place] [address] 30 Apr, 2011 [facility] [address] [id number] [address] [place] [address], [place] [address] Apr, [facility] [address] [id number] [address] [place] [address], [place] [address] Apr, [facility] [address] [id number] [address] [place] [address], [place] [address] Mar, [facility] [address] [id number] [address] [place] [address], [place] [address] 18 Mar, 2011 [facility] [address] [id number] [address] [place] [address], [place] [address] Mar, [facility] [address] [id number] [address] [place] [address], [place] [address] Mar, [facility] [address] [id number] [address] [place] [address], [place] [address] Dec, [facility] [address] [id number] [address] [place] [address], [place] [address] October, [facility] [address] [id number] [address] [place] [address], [place] [address] May, [facility] [address] [id number] [address] [place] [address] May, [facility] [address] [id number] [address] [place] [address], [place] [address] May, [facility] [address] [id number] [address] [place] [address], [place] [address] 06 May, 2010 [facility] [address] [id number] [address] [place] [address], [place] [address] 26 Mar, 2010 [facility] [address] [id number] [address] [place] [address] Mar, [facility] [address] [id number] [address] [place] [address] May, [facility] [address] [id number] [address] [place] [address] May, [facility] [address] [facility] [id number] [address] [place] [address] May, [facility] [address] [facility] [id number] [address] [place] [address] May, [facility] [address] [facility] [id number] [address] [place] [address] Apr, [facility] [address] [facility] [id number] [address] [place] [address] Apr, [facility] [address] [facility] [id number] [address] [place] [address] October, IMMUNIZATIONS No Known Immunizations SOCIAL HISTORY [...]
--- OUTSIDE RECORDS SUMMARY | 2020-01-13 11:38 | XMS REPORT ---
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 Name Role Phone RASHEED RAHMAN Unavailable PROBLEMS Type Condition ICD9-CM Code JEB34-FR Code Onset Dates Condition S tatus SNOMED Code Problem Snoring R06.83 Active 55289004 Problem MRSA (methicillin resistant staph aureus) culture positive Z22.322 Active 789910731 Problem History of illicit drug use Z87.898 Ac tive 170919815 Problem Dysthymic disorder F34.1 Active 7 7930920 Problem Impaired circulation I99.9 Active 60612777 Problem Panic disorder without agoraphobia F41.0 Active 76803121 Problem Agoraphobia F40.00 Active 60891990 Problem Psychotic disorder F29 Active 6 9928521 Problem Mood disorder F39 Active 467618 05 Problem On home oxygen therapy Z99.81 Active 446983734479 Problem Mild chronic obstructive pulmonary disease J44.9 Active 936120859 Problem Neuropathy G62.9 Active 983433443 Problem Essential hypertension I10 Active 28564230 Problem Major depressive disorder, recurrent episode, moderate F33.1 Active 875641813 Problem 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 Active 980828 02 Problem Arthritis M19.90 Active 7307966 Problem 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 Active 447443440 Problem Hypertension, benign I10 Active 24626809 Problem Onychomycosis B35.1 Active 392015 008 Problem Major depressive disorder in full remission F32.5 Active 40071531 Problem Sciatica, left side M54.32 Active 59861978 Problem Varicose veins of both lower extremities I83.93 Active 07350265 Problem COPD exacerbation J44.1 Active 19 7973916 Problem Fatigue R53.83 Active 70314175 Problem Mild persistent asthma without complication J45.30 Active 526271330 Problem Slow transit constipation K59.01 Acti ve 77896257 Problem Chronic obstructive pulmonary disease, unspecified COPD ty pe J44.9 Active 81435829 Problem Body mass index (BMI) 40.0-44.9, adult Z68.41 Active 070881370 Problem Unspecified psychosis not du e to a substance or known physiological condition F29 Active 123993750 ALLERGIES No Information ENCOUNTERS Encounter Location Date Diagnosis [facility] [address] [facility] [id number] [address] [place] [address] Dec, [facility] [address] [facility] [id number] [address] [place] [address] Nov, [place] [address] [facility] [id number] [address] Nov, [place] [address] [facility] [id number] [address] [place] [address] Nov, Essential hypertension I10 [facility] [address] [place] [id number] [address] [place] [address] Nov, COPD exacerbation J44.1 ; Ex posure to viral disease Z20.828 ; Sore throat J02.9 and Community acquired pneumonia of right lower lobe of lung J18.9 [place] [address] [facility] [id number] [address] [place] [address] Nov, [facility] [id number] [place] [address] Nov, [place] [address] [facility] [id number] [address] [place] [address] Nov, Essential hypertension I10 a nd Type 2 diabetes mellitus with diabetic neuropathic arthropathy E11.610 [place] [address] [facility] [id number] [address] [place] [address] Nov, Abdominal pain, right upper quadrant R10.11 [place] [address] [facility] [id number] [address] [place] [address] October, Major depressive disorder, r ecurrent episode, moderate F33.1 and Panic disorder without agoraphobia F41.0 [place] [address] [facility] [id number] [address] [place] [address] October, Abdominal pain, right upper quadrant R10.11 [place] [address] [facility] [id number] [address] [place] [address] Sep, [id number] [place] [address] Sep, [place] [address] [facility] [id number] [address] [place] [address] 15 Sep, 2019 Abdominal pain, right upper quadrant R10.11 [place] [address] [place] [id number] [place] [address] Sep, Panic disorder without agora phobia F41.0 ; Major depressive disorder, recurrent episode, moderate F33.1 and Morbid obesity E66.01 [place] [address] [place] [id number] [address] [place] [address] Aug, Bronchitis J40 [place] [address] [place] [id number] [address] [place] [address] Aug, Sciatica, left side M54.32 a nd Morbid obesity E66.01 [place] [address] [place] [id number] [address] [place] [address] Aug, [place] [address] [place] [id number] [address] [place] [address] Aug, Sciatica, left side M54.32 [place] [address] [place] [id number] [address] [place] [address] Aug, Neuropathy G62.9 ; Onychomyc osis B35.1 ; Callus of foot L84 and Skin fissures R23.4 [place] [address] [place] [id number] [address] [place] [address] Jul, [place] [address] [place] [id number] [address] [place] [address] Jul, Morbid obesity E66.01 [place] [address] [place] [id number] [address] [place] [address] Jul, Unspecified psychosis not du e to a substance or known physiological condition F29 ; Chronic obstructive pulmonary disease, unspecified COPD type J44.9 and Body mass index (BMI) 40.0-44.9, adult Z68.41 [place] [address] [address] Jun, [place] [address] [address] Jun, Morbid obesity E66.01 [place] [address] [address] May, Morbid obesity E66.01 [place] [address] [address] May, Encounter for immunization Z 23 [place] [address] [address] May, Major depressive disorder, r ecurrent episode, moderate F33.1 ; Panic disorder without agoraphobia F41.0 and Morbid obesity E66.01 [place] [address] [address] May, Major depressive disorder in full remission F32.5 and Panic disorder without agoraphobia F41.0 [place] [address] [place] [id number] [address] [place] [address] Apr, Morbid obesity E66.01 [place] [address] [address] Apr, Slow transit constipation K5 9.01 and Cellulitis of left lower extremity L03.116 [place] [address] [place] [id number] [address] [place] [address] Apr, Morbid obesity E66.01 [place] [address] [address] Apr, [place] [address] [address] Apr, Major depressive disorder, r ecurrent episode, moderate F33.1 and Panic disorder without agoraphobia F41.0 [place] [address] [place] [id number] [address] [place] [address] Mar, Viral upper respiratory trac t infection J06.9 [place] [address] [address] Mar, Bronchitis J40 and Encounter for immunization Z23 [place] [address] [address] Mar, Morbid obesity E66.01 [place] [address] [address] Feb, Major depressive disorder, r ecurrent episode, moderate F33.1 and Panic disorder without agoraphobia F41.0 [place] [address] [address] Feb, Morbid obesity E66.01 [place] [address] [address] 06 Feb, 2019 Onychomycosis B35.1 ; 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 [id number] [address] [place] [address] Jan, [place] [address] [facility] [id number] [address] [place] [address] Jan, Major depressive disorder in full remission F32.5 and Panic disorder without agoraphobia F41.0 [place] [address] [facility] [id number] [address] [place] [address] Jan, [place] [address] [facility] [id number] [address] [place] [address] Jan, Major depressive disorder, r ecurrent episode, moderate F33.1 ; Panic disorder without agoraphobia F41.0 and Morbid obesity E66.01 [place] [address] [place] [id number] [address] [place] [address] Dec, Bilious vomiting with nausea R11.14 ; Coughing R05 and Choking, subsequent encounter T17.308D [place] [address] [facility] [id number] [address] [place] [address] Dec, Morbid obesity E66.01 [place] [address] [facility] [id number] [address] [place] [address] Dec, Major depressive disorder, r ecurrent episode, moderate F33.1 and Panic disorder without agoraphobia F41.0 [place] [address] [facility] [id number] [address] [place] [address] Dec, [place] [address] [facility] [id number] [address] [place] [address] Dec, Major depressive disorder, r ecurrent episode, moderate F33.1 [place] [address] [facility] [id number] [address] [place] [address] Nov, Major depressive disorder, r ecurrent episode, moderate F33.1 ; Panic disorder without agoraphobia F41.0 and Morbid obesity E66.01 [place] [address] [address] 20 Nov, 2018 Morbid obesity E66.01 [place] [address] [address] Nov, Major depressive disorder, r ecurrent episode, moderate F33.1 and Panic disorder without agoraphobia F41.0 [facility] [place] [address] [address] Nov, Allergic reaction, initial e ncounter T78.40XA and Morbid obesity E66.01 [place] [address] [address] Nov, [place] [address] [address] Nov, Morbid obesity E66.01 ; Swal lowing problem R13.10 and Hypertension, benign I10 [facility] [place] [address] [address] Nov, Morbid obesity E66.01 ; COPD exacerbation J44.1 and Non- recurrent acute suppurative otitis media of left ear without spontaneous rupture of tympanic membrane H66.002 [place] [address] [address] 07 Nov, 2018 Onychomycosis B35.1 ; Neurop athy G62.9 and Fissure in skin of foot R23.4 [place] [address] [address] October, Major depressive disorder, r ecurrent episode, moderate F33.1 ; Panic disorder without agoraphobia F41.0 and Morbid obesity E66.01 [facility] [place] [address] [address] October, Viral upper respiratory trac t infection J06.9 [place] [address] [address] October, [facility] [address] [id number] [address] [place] [address] October, Major depressive disorder, r ecurrent episode, moderate F33.1 and Panic disorder without agoraphobia F41.0 [facility] [address] [id number] [address] [place] [address] October, [facility] [address] [id number] [address] [place] [address] October, [facility] [address] [id number] [address] [place] [address] October, [facility] [address] [id number] [address] [place] [address] October, [facility] [address] [facility] [id number] [address] [place] [address] October, [facility] [address] [facility] [id number] [address] [place] [address] October, [facility] [address] [facility] [id number] [address] [place] [address] October, Major depressive disorder, r ecurrent episode, moderate F33.1 and Panic disorder without agoraphobia F41.0 [facility] [address] [facility] [id number] [address] [place] [address] Sep, Morbid obesity E66.01 and Vane mbar neuritis M54.16 [facility] [address] [facility] [id number] [address] [place] [address] Sep, Panic disorder without agora phobia F41.0 and Major depressive disorder, recurrent episode, moderate F33.1 [facility] [address] [facility] [id number] [address] [place] [address] Sep, Gastroenteritis K52.9 ; Low back pain M54.5 ; Other chronic pain G89.29 and Morbid obesity E66.01 [facility] [address] [facility] [id number] [address] [place] [address] Sep, Major depressive disorder, r ecurrent episode, moderate F33.1 ; Panic disorder without agoraphobia F41.0 and 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 [place] [address] [place] [address] Sep, Panic disorder without agora phobia F41.0 [place] [address] [address] Sep, Panic disorder without agora phobia F41.0 [place] [address] [place] [id number] [place] [address] Aug, Panic disorder without agora phobia F41.0 ; Major depressive disorder, recurrent episode, moderate F33.1 ; 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 ; Psychotic disorder F29 ; Tardive dyskinesia G24.01 and Morbid obesity E66.01 [place] [address] [address] Aug, Dysthymic disorder F34.1 and Psychotic disorder F29 [place] [address] [address] Aug, [facility] ; Morbid obesity E66.01 and 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 [place] [address] [address] Aug, Dysthymic disorder F34.1 and Psychotic disorder F29 [place] [address] [address] Aug, Neuropathy G62.9 ; Onychomyc osis B35.1 and Xerosis of skin L85.3 [place] [address] [place] [id number] [address] [place] [address] Jul, [place] [address] [place] [id number] [address] [place] [address] Jul, Mood disorder F39 ; Wheezing R06.2 ; Choking, initial encounter T17.308A and Coughing R05 [facility] [address] [address] Jul, Low back pain M54.5 [facility] [address] 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 [place] [address] [address] May, Low back pain M54.5 and Abdoulaye a leg R60.[address] [address] May, BMI 45.0-49.9, adult Z68.42 ; Well woman exam with routine gynecological exam Z01.419 and Breast cancer screening Z12.31 [place] [address] [address] Apr, Arthritis M19.90 [place] [address] [address] Apr, Arthritis M19.90 and Otalgia of both ears H92.03 [place] [address] [place] [id number] [address] [place] [address] Feb, [place] [address] [address] Feb, Low back pain M54.5 ; Other chronic pain G89.29 ; Exertional asthma J45.990 and Encounter for immunization Z23 [facility] [address] [place] [id number] [address] [place] [address] Feb, Skin fissures R23.4 ; Neurop athy G62.9 and Onychomycosis B35.1 [facility] [address] [place] [id number] [address] [place] [address] 05 Feb, 2018 Dysthymic disorder F34.1 [place] [address] [place] [address] 04 Feb, 2018 [place] [address] [place] [id number] [place] [address] Jan, [place] [address] [address] Jan, Abrasion of right elbow, ini tial encounter S50.311A ; Abrasion, right knee, initial encounter S80.211A and Sprain of other ligament of right ankle, initial encounter S93.491A [place] [address] [address] Jan, [facility] [address] [place] [id number] [address] [place] [address] Jan, Injury of left ankle, initia l encounter S99.912A ; Fall down stairs, initial encounter W10.8XXA and BMI 45.0-49.9, adult Z68.42 [facility] [address] [place] [address] Jan, COPD exacerbation J44.1 [place] [address] [place] [id number] [address] [place] [address] Jan, 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 [place] [address] [place] [id number] [address] [place] [address] Jan, Bronchitis J40 and Acute sup purative otitis media of left ear without spontaneous rupture of tympanic membrane, recurrence not specified H66.002 [place] [address] [place] [id number] [address] [place] [address] Jan, [place] [address] [place] [id number] [address] [place] [address] Jan, Bronchitis J40 and BMI 40.0- 44.9, adult Z68.41 [place] [address] [place] [id number] [place] [address] Jan, [place] [address] [place] [id number] [place] [address] Dec, Gastric pain R10.9 [place] [address] [place] [id number] [place] [address] Dec, [place] [address] [address] Dec, History of illicit drug use Z87.898 ; Neuropathy G62.9 ; COPD (chronic obstructive pulmonary disease) with chronic bronchitis J44.9 and Acute pain of right knee M25.561 [place] [address] [address] Nov, [place] [address] [address] Nov, Onychomycosis B35.1 and Cont usion of left foot, subsequent encounter S90.32XD [place] [address] [place] [id number] [address] [place] [address] Nov, COPD exacerbation J44.1 [place] [address] [place] [id number] [place] [address] Sep, [place] [address] [place] [id number] [place] [address] Sep, Dysthymic disorder F34.1 ; T obacco abuse Z72.0 ; Pain in right knee M25.561 ; Pain in left knee M25.562 ; Other chronic pain G89.29 and BMI 40.0- 44.9, adult Z68.[address] [address] Aug, Major depressive disorder, r ecurrent episode, moderate F33.1 and 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 [address] 14 Aug, 2017 Dysthymic disorder F34.1 ; N on-pressure chronic ulcer of left thigh, unspecified ulcer stage L97.129 ; Tobacco abuse Z72.0 ; Mild chronic obstructive pulmonary disease J44.9 and Forgetfulness R68.[address] [address] 09 Aug, 2017 Onychomycosis B35.1 ; Fissur e in skin of foot R23.4 and Foot callus L84 [facility] [address] [place] [address] Jul, Right medial knee pain M25.5 61 ; Upper respiratory tract infection, unspecified type J06.9 and BMI 40.0-44.9, adult Z68.41 [facility] [address] [address] 08 Jul, 2017 Nausea and vomiting, intract ability of vomiting not specified, unspecified vomiting type R11.2 ; Left ear pain H92.02 and Gastric pain R10.9 [place] [address] [address] Apr, Encounter for immunization Z [address] [address] Apr, Onychomycosis B35.1 ; Xerosi s of skin L85.3 ; Neuropathy G62.9 and Type 2 diabetes mellitus with diabetic neuropathic arthropathy E11.[address] [address] Jan, Onychomycosis B35.1 and Neur opathy G62.9 [facility] [address] [facility] [id number] [address] [place] [address] Dec, [facility] [address] [facility] [id number] [address] [place] [address] Dec, [facility] [address] [facility] [id number] [address] [place] [address] Nov, [facility] [address] [facility] [id number] [address] [place] [address] Aug, [facility] [address] [facility] [id number] [address] [place] [address] Aug, [facility] [address] [facility] [id number] [address] [place] [address] Jul, [facility] [address] [facility] [id number] [address] [place] [address] Jul, [facility] [address] [facility] [id number] [address] [place] [address] Jul, Decubitus ulcer of left thig h, stage 2 L89.892 [facility] [address] [place] [id number] [address] [place] [address] 17 Jul, 2016 Decubitus ulcer of left thig h, stage 2 L89.892 [facility] [address] [facility] [id number] [address] [place] [address] 17 Jul, 2016 [facility] [address] [facility] [id number] [address] [place] [address] 15 Jul, 2016 Decubitus ulcer of left thig h, stage 2 L89.892 [facility] [address] [facility] [id number] [address] [place] [address] 14 Jul, 2016 [facility] [address] [facility] [id number] [address] [place] [address] 13 Jul, 2016 Cellulitis of other specifie d site L03.818 ; Illicit drug use F19.90 and Decubitus ulcer of left thigh, stage 2 L89.892 [facility] [address] [place] [id number] [address] [place] [address] Jul, [facility] [address] [place] [id number] [address] [place] [address] Jul, Cellulitis of right breast N 61.0 [facility] [address] [place] [id number] [address] [place] [address] Jun, [facility] [address] [place] [id number] [address] [place] [id number] Jun, [facility] [address] [id number] Jun, Wheezing R06.2 and Arthralgi a, unspecified joint M25.50 [facility] [id number] [place] [phone] May, [facility] [id number] [place] [id number] May, [facility] [id number] [place] [phone] May, [facility] [id number] [place] [id number] May, Shortness of breath R06.02 [facility] [id number] [place] [id number] May, Onychomycosis B35.1 and Fiss ure in skin of foot R23.4 [facility] [id number] [place] [id number] Apr, [facility] [id number] [place] [id number] 18 Apr, 2016 Dizziness R42 [facility] [id number] [place] [id number] Apr, Shortness of breath R06.02 ; Essential hypertension I10 ; Dizziness R42 and On home oxygen therapy Z99.81 [facility] [address] [id number] [address] [place] [address] Apr, [facility] [address] [id number] [address] [place] [address] Apr, [facility] [address] [id number] [address] [place] [address] Apr, [facility] [address] [id number] [address] [place] [address] Apr, [facility] [address] [id number] [address] [place] [address] Apr, [facility] [address] [id number] [address] [place] [address] Apr, [facility] [address] [id number] [address] [place] [address] Apr, [facility] [address] [id number] [address] [place] [address] Mar, Mild chronic obstructive pul monary disease J44.9 [facility] [address] [id number] [address] [place] [address] Mar, [facility] [address] [id number] [address] [place] [address] Mar, Epigastric pain R10.13 ; Low back pain M54.5 ; Other chronic pain G89.29 and Breast cancer screening Z12.39 [facility] [address] [id number] [address] [place] [address] Mar, [facility] [address] [id number] [address] [place] [address] Mar, [facility] [address] [id number] [address] [place] [address] Feb, [facility] [address] [facility] [id number] [address] [place] [address] 08 Feb, 2016 [place] [address] [facility] [id number] [address] [place] [address] Feb, Fissure in skin of foot R23. 4 and Onychomycosis B35.1 [place] [address] [place] [id number] [address] [place] [address] Jan, Agoraphobia F40.00 [place] [address] [facility] [id number] [address] [place] [address] Dec, Agoraphobia F40.00 [place] [address] [place] [id number] [address] [place] [address] Dec, Mild persistent asthma witho ut complication J45.30 ; Dysthymic disorder F34.1 and Upper respiratory tract infection, unspecified type J06.9 [place] [id number] [place] [address] Nov, Agoraphobia F40.00 [place] [address] [place] [id number] [address] [place] [address] October, Agoraphobia F40.00 [place] [address] [place] [id number] [address] [place] [address] Sep, Panic disorder without agora phobia F41.0 ; Agoraphobia F40.00 and Dysthymic disorder F34.1 [place] [address] [place] [id number] [address] [place] [address] Sep, Panic attacks F41.0 [place] [address] [facility] [id number] [address] [place] [address] Sep, [place] [address] [place] [id number] [address] [place] [address] Sep, Panic disorder without agora phobia F41.0 ; Varicose veins of both lower extremities I83.93 and Fatigue R53.83 [place] [address] [place] [id number] [address] [place] [address] 14 Sep, 2015 Fatigue R53.83 [place] [address] [address] 05 Sep, 2015 [place] [address] [address] Aug, [place] [address] [address] Aug, [place] [address] [address] Aug, Type 2 diabetes mellitus wit h diabetic neuropathic arthropathy E11.610 [place] [address] [address] Aug, Panic disorder without agora phobia F41.0 ; Agoraphobia F40.00 and Dysthymic disorder F34.1 [place] [address] [place] [id number] [address] [place] [address] Aug, Shortness of breath R06.02 ; Panic attacks F41.0 ; COPD (chronic obstructive pulmonary disease) J44.9 ; Tobacco abuse Z72.0 ; Family history of diabetes mellitus Z83.3 and Weight gain R63.5 [place] [address] [place] [id number] [address] [place] [address] Aug, [place] [address] [place] [id number] [address] [place] [address] Jul, [place] [address] [place] [id number] [address] [place] [address] Jun, Onychomycosis B35.1 ; Neurop athy G62.9 and Impaired circulation I99.9 [place] [address] [place] [id number] [address] [place] [address] 09 Mar, 2015 Fissure in skin of foot R23. 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 [id number] [address] [place] [address] 18 Feb, 2015 Family history of coronary a rteriosclerosis V17.3 [facility] [address] [facility] [id number] [address] [place] [address] 15 Feb, 2015 Allergic rhinitis due to darien agnieszka 477.0 ; Unspecified breast screening V76.10 ; Anxiety 300.00 and Family history of coronary arteriosclerosis V17.3 [facility] [address] [place] [id number] [address] [place] [address] Jan, [facility] [address] [place] [id number] [address] [place] [address] Dec, [facility] [address] [address] Dec, Onychomycosis 110.1 and Skin fissures 709.8 [facility] [address] [place] [id number] [address] [place] [address] Sep, [facility] [address] [facility] [id number] [address] [place] [address] Sep, [facility] [address] [place] [id number] [address] [place] [address] Aug, [facility] [address] [place] [id number] [address] [place] [address] Aug, [facility] [address] [facility] [id number] [address] [place] [address] Jul, [facility] [address] [place] [id number] [address] [place] [address] Jul, [facility] [address] [place] [id number] [address] [place] [address] Jun, [facility] [address] [place] [id number] [address] [place] [address] Jun, [facility] [address] [place] [id number] [address] [place] [address] Jun, [facility] [address] [id number] [address] [place] [address], [place] [address] Jun, [facility] [address] [id number] [address] [place] [address], [place] [address] Jun, [facility] [address] [id number] [address] [place] [address], [place] [address] May, [facility] [address] [id number] [address] [place] [address], [place] [address] May, [facility] [address] [id number] [address] [place] [address], [place] [address] May, [facility] [address] [id number] [address] [place] [address], [place] [address] May, [facility] [address] [id number] [address] [place] [address], [place] [address] May, [facility] [address] [id number] [address] [place] [address], [place] [address] May, [facility] [address] [id number] [address] [place] [address], [place] [address] May, [facility] [address] [id number] [address] [place] [address], [place] [address] May, [facility] [address] [id number] [address] [place] [address], [place] [address] Apr, [facility] [address] [id number] [address] [place] [address], [place] [address] Apr, [facility] [address] [id number] [address] [place] [address], [place] [address] Apr, [facility] [address] [id number] [address] [place] [address], [place] [address] Apr, [facility] [address] [id number] [address] [place] [address], [place] [address] Apr, [facility] [address] [id number] [address] [place] [address], [place] [address] Apr, [facility] [address] [id number] [address] [place] [address], [place] [address] Apr, [facility] [address] [id number] [address] [place] [address], [place] [address] Apr, [facility] [address] [id number] [address] [place] [address], [place] [address] Apr, [facility] [address] [id number] [address] [place] [address], [place] [address] Apr, [facility] [address] [id number] [address] [place] [address], [place] [address] Mar, [facility] [address] [id number] [address] [place] [address], [place] [address] Mar, [facility] [address] [id number] [address] [place] [address], [place] [address] Mar, [facility] [address] [id number] [address] [place] [address], [place] [address] Mar, [facility] [address] [id number] [address] [place] [address], [place] [address] Mar, [facility] [address] [id number] [address] [place] [address], [place] [address] Mar, [facility] [address] [id number] [address] [place] [address], [place] [address] Mar, [facility] [address] [id number] [address] [place] [address], [place] [address] Mar, [facility] [address] [id number] [address] [place] [address], [place] [address] Mar, [facility] [address] [id number] [address] [place] [address], [place] [address] Mar, [facility] [address] [id number] [address] [place] [address], [place] [address] Mar, [facility] [address] [id number] [address] [place] [address], [place] [address] Mar, [facility] [address] [id number] [address] [place] [address], [place] [address] 22 Mar, 2014 [facility] [address] [id number] [address] [place] [address], [place] [address] Mar, [facility] [address] [id number] [address] [place] [address], [place] [address] Mar, [facility] [address] [id number] [address] [place] [address], [place] [address] Mar, [facility] [address] [id number] [address] [place] [address], [place] [address] 20 Mar, 2014 [facility] [address] [id number] [address] [place] [address], [place] [address] 16 Mar, 2014 [facility] [address] [id number] [address] [place] [address], [place] [address] 16 Mar, 2014 [facility] [address] [id number] [address] [place] [address], [place] [address] 15 Mar, 2014 [facility] [address] [id number] [address] [place] [address] 14 Mar, 2014 [facility] [address] [id number] [address] [place] [address], [place] [address] 14 Mar, 2014 [facility] [address] [id number] [address] [place] [address] 14 Mar, 2014 [facility] [address] [id number] [address] [place] [address], [place] [address] 14 Mar, 2014 [facility] [address] [id number] [address] [place] [address] 09 Mar, 2014 [facility] [address] [id number] [address] [place] [address], [place] [address] 09 Mar, 2014 [facility] [address] [id number] [address] [place] [address], [place] [address] 09 Mar, 2013 [facility] [address] [id number] [address] [place] [address], [place] [address] 09 Mar, 2013 [facility] [address] [id number] [address] [place] [address], [place] [address] 30 Feb, 2013 [facility] [address] [id number] [address] [place] [address], [place] [address] 30 Sep, 2013 [facility] [address] [id number] [address] [place] [address], [place] [address] 30 Feb, 2013 [facility] [address] [id number] [address] [place] [address], [place] [address] 30 Feb, 2013 [facility] [address] [id number] [address] [place] [address], [place] [address] Feb, 2013 [facility] [address] [id number] [address] [place] [address], [place] [address] Feb, 2013 [facility] [address] [id number] [address] [place] [address], [place] [address] Feb, 2013 [facility] [address] [id number] [address] [place] [address], [place] [address] Feb, 2013 [facility] [address] [id number] [address] [place] [address], [place] [address] Feb, 2013 [facility] [address] [id number] [address] [place] [address], [place] [address] Feb, 2013 [facility] [address] [id number] [address] [place] [address], [place] [address] Feb, 2013 [facility] [address] [id number] [address] [place] [address], [place] [address] Feb, 2013 [facility] [address] [id number] [address] [place] [address], [place] [address] Jan, [facility] [address] [id number] [address] [place] [address], [place] [address] Jan, [facility] [address] [id number] [facility] [place] [address] Jan, [facility] [address] [id number] [facility] [place] [address] Jan, [facility] [address] [id number] [facility] [place] [address] Jan, [facility] [address] [id number] [address] [place] [address], [place] [address] Jan, [facility] [address] [id number] [address] [place] [address], [place] [address] Jan, [facility] [address] [id number] [address] [place] [address], [place] [address] Jan, [facility] [address] [id number] [address] [place] [address], [place] [address] Jan, [facility] [address] [id number] [address] [place] [address], [place] [address] Jan, [facility] [address] [id number] [address] [place] [address], [place] [address] Jan, [facility] [address] [id number] [address] [place] [address], [place] [address] Jan, [facility] [address] [id number] [address] [place] [address], [place] [address] Jan, [facility] [address] [id number] [address] [place] [address], [place] [address] Dec, [facility] [address] [id number] [address] [place] [address], [place] [address] Dec, [facility] [address] [id number] [address] [place] [address], [place] [address] Dec, [facility] [address] [id number] [address] [place] [address], [place] [address] Dec, [facility] [address] [id number] [address] [place] [address], [place] [address] Dec, 2013 [facility] [address] [id number] [facility] [place] [address] Dec, [facility] [address] [id number] [address] [place] [address], [place] [address] Dec, [facility] [address] [id number] [address] [place] [address], [place] [address] Dec, [facility] [address] [id number] [address] [place] [address], [place] [address] Dec, [facility] [address] [id number] [address] [place] [address], [place] [address] Dec, [facility] [address] [id number] [address] [place] [address], [place] [address] Dec, [facility] [address] [id number] [address] [place] [address], [place] [address] Dec, [facility] [address] [id number] [address] [place] [address], [place] [address] Dec, [facility] [address] [id number] [address] [place] [address], [place] [address] Dec, [facility] [address] [id number] [address] [place] [address], [place] [address] Dec, [facility] [address] [id number] [address] [place] [address], [place] [address] Dec, [facility] [address] [id number] [address] [place] [address], [place] [address] Dec, [facility] [address] [id number] [address] [place] [address], [place] [address] Dec, [facility] [address] [id number] [address] [place] [address], [place] [address] Nov, [facility] [address] [id number] [address] [place] [address], [place] [address] Nov, [facility] [address] [id number] [facility] [place] [address] 24 Nov, 2013 [facility] [address] [id number] [facility] [place] [address] Nov, [facility] [address] [id number] [facility] [place] [address] Nov, [facility] [address] [id number] [address] [place] [address], [place] [address] Nov, [facility] [address] [id number] [address] [place] [address], [place] [address] Nov, [facility] [address] [id number] [address] [place] [address], [place] [address] Nov, [facility] [address] [id number] [address] [place] [address], [place] [address] Nov, [facility] [address] [id number] [address] [place] [address], [place] [address] Nov, [facility] [address] [id number] [address] [place] [address], [place] [address] Nov, [facility] [address] [id number] [address] [place] [address], [place] [address] Nov, [facility] [address] [id number] [address] [place] [address], [place] [address] Nov, [facility] [address] [id number] [address] [place] [address], [place] [address] Nov, [facility] [address] [id number] [address] [place] [address], [place] [address] Nov, [facility] [address] [id number] [address] [place] [address], [place] [address] Nov, [facility] [address] [id number] [address] [place] [address], [place] [address] Nov, [facility] [address] [id number] [address] [place] [address], [place] [address] Nov, [facility] [address] [id number] [address] [place] [address], [place] [address] Nov, [facility] [address] [id number] [address] [place] [address], [place] [address] Nov, [facility] [address] [id number] [address] [place] [address], [place] [address] October, [facility] [address] [id number] [address] [place] [address], [place] [address] October, [facility] [address] [id number] [address] [place] [address], [place] [address] October, [facility] [address] [id number] [address] [place] [address], [place] [address] October, [facility] [address] [id number] [address] [place] [address], [place] [address] Sep, [facility] [address] [id number] [address] [place] [address], [place] [address] Sep, [facility] [address] [id number] [address] [place] [address], [place] [address] Sep, [facility] [address] [id number] [address] [place] [address], [place] [address] Sep, [facility] [address] [id number] [address] [place] [address], [place] [address] Sep, [facility] [address] [id number] [address] [place] [address], [place] [address] Sep, [facility] [address] [id number] [address] [place] [address], [place] [address] Sep, [facility] [address] [id number] [address] [place] [address], [place] [address] Sep, [facility] [address] [id number] [address] [place] [address], [place] [address] Sep, [facility] [address] [id number] [address] [place] [address], [place] [address] Aug, [facility] [address] [id number] [address] [place] [address], [place] [address] Aug, [facility] [address] [id number] [address] [place] [address], [place] [address] Aug, [facility] [address] [id number] [address] [place] [address], [place] [address] Aug, [facility] [address] [id number] [address] [place] [address], [place] [address] Aug, [facility] [address] [id number] [address] [place] [address], [place] [address] Aug, [facility] [address] [id number] [address] [place] [address], [place] [address] Aug, [facility] [address] [id number] [address] [place] [address], [place] [address] Aug, [facility] [address] [id number] [address] [place] [address], [place] [address] Jul, [facility] [address] [id number] [address] [place] [address], [place] [address] Jul, [facility] [address] [id number] [address] [place] [address], [place] [address] Jun, [facility] [address] [id number] [address] [place] [address], [place] [address] Jun, [facility] [address] [id number] [address] [place] [address], [place] [address] Jun, [facility] [address] [id number] [address] [place] [address], [place] [address] Jun, [facility] [address] [id number] [address] [place] [address], [place] [address] Jun, [facility] [address] [id number] [address] [place] [address], [place] [address] Jun, [facility] [address] [id number] [address] [place] [address], [place] [address] Jun, [facility] [address] [id number] [address] [place] [address], [place] [address] Jun, [facility] [address] [id number] [address] [place] [address], [place] [address] Jun, [facility] [address] [id number] [address] [place] [address], [place] [address] Jun, [facility] [address] [id number] [address] [place] [address], [place] [address] Jun, [facility] [address] [id number] [address] [place] [address], [place] [address] Jun, [facility] [address] [id number] [address] [place] [address], [place] [address] May, [facility] [address] [id number] [address] [place] [address], [place] [address] May, [facility] [address] [id number] [address] [place] [address], [place] [address] May, [facility] [address] [id number] [address] [place] [address], [place] [address] May, [facility] [address] [id number] [address] [place] [address], [place] [address] May, [facility] [address] [id number] [address] [place] [address], [place] [address] 31 May, 2013 [facility] [address] [id number] [address] [place] [address], [place] [address] 26 May, 2013 [facility] [address] [id number] [address] [place] [address], [place] [address] May, [facility] [address] [id number] [address] [place] [address], [place] [address] May, [facility] [address] [id number] [address] [place] [address] [address] May, [facility] [address] [id number] [address] [place] [address], [place] [address] May, [facility] [address] [id number] [address] [place] [address], [place] [address] May, [facility] [address] [id number] [address] [place] [address], [place] [address] May, [facility] [address] [id number] [address] [place] [address], [place] [address] Apr, [facility] [address] [id number] [address] [place] [address], [place] [address] Apr, [facility] [address] [id number] [address] [place] [address], [place] [address] Mar, [facility] [address] [id number] [address] [place] [address], [place] [address] Mar, [facility] [address] [id number] [address] [place] [address], [place] [address] 24 Feb, 2013 [facility] [address] [id number] [address] [place] [address], [place] [address] Feb, [facility] [address] [id number] [address] [place] [address], [place] [address] Feb, [facility] [address] [id number] [address] [place] [address], [place] [address] Feb, [facility] [address] [id number] [address] [place] [address] Jan, [facility] [address] [id number] [address] [place] [address], [place] [address] Jan, [facility] [address] [id number] [address] [place] [address], [place] [address] Jan, [facility] [address] [id number] [address] [place] [address], [place] [address] Jan, [facility] [address] [id number] [address] [place] [address], [place] [address] Jan, [facility] [address] [id number] [address] [place] [address], [place] [address] Jan, [facility] [address] [id number] [address] [place] [address], [place] [address] Dec, [facility] [address] [id number] [address] [place] [address], [place] [address] Dec, [facility] [address] [id number] [address] [place] [address], [place] [address] Dec, [facility] [address] [id number] [address] [place] [address], [place] [address] Dec, [facility] [address] [id number] [address] [place] [address], [place] [address] Nov, [facility] [address] [id number] [address] [place] [address], [place] [address] October, [facility] [address] [id number] [address] [place] [address], [place] [address] October, [facility] [address] [id number] [address] [place] [address], [place] [address] October, [facility] [address] [id number] [address] [place] [address], [place] [address] Sep, [facility] [address] [id number] [address] [place] [address], [place] [address] Sep, [facility] [address] [id number] [address] [place] [address], [place] [address] Jun, [facility] [address] [id number] [address] [place] [address], [place] [address] Jun, [facility] [address] [id number] [address] [place] [address], [place] [address] Jun, [facility] [address] [id number] [address] [place] [address], [place] [address] Apr, [facility] [address] [id number] [address] [place] [address], [place] [address] Apr, [facility] [address] [id number] [address] [place] [address], [place] [address] Apr, [facility] [address] [id number] [address] [place] [address], [place] [address] Apr, [facility] [address] [id number] [address] [place] [address], [place] [address] Mar, [facility] [address] [id number] [address] [place] [address], [place] [address] Mar, [facility] [address] [id number] [address] [place] [address], [place] [address] Mar, [facility] [address] [id number] [address] [place] [address], [place] [address] Mar, [facility] [address] [id number] [address] [place] [address], [place] [address] Feb, [facility] [address] [id number] [address] [place] [address], [place] [address] Feb, [facility] [address] [id number] [address] [place] [address], [place] [address] Feb, [facility] [address] [id number] [address] [place] [address], [place] [address] Jan, [facility] [address] [id number] [address] [place] [address], [place] [address] Jan, [facility] [address] [id number] [address] [place] [address], [place] [address] Jan, [facility] [address] [id number] [address] [place] [address], [place] [address] Jan, [facility] [address] [id number] [address] [place] [address], [place] [address] Dec, [facility] [address] [id number] [address] [place] [address], [place] [address] Dec, [facility] [address] [id number] [address] [place] [address], [place] [address] Nov, [facility] [address] [id number] [address] [place] [address], [place] [address] Nov, [facility] [address] [id number] [address] [place] [address], [place] [address] October, [facility] [address] [id number] [address] [place] [address], [place] [address] October, [facility] [address] [id number] [address] [place] [address], [place] [address] October, [facility] [address] [id number] [address] [place] [address], [place] [address] Sep, [facility] [address] [id number] [address] [place] [address], [place] [address] Sep, [facility] [address] [id number] [address] [place] [address], [place] [address] Sep, [facility] [address] [id number] [address] [place] [address], [place] [address] Aug, [facility] [address] [id number] [address] [place] [address], [place] [address] Aug, [facility] [address] [id number] [address] [place] [address], [place] [address] Aug, [facility] [address] [id number] [address] [place] [address], [place] [address] Aug, [facility] [address] [id number] [address] [place] [address], [place] [address] Aug, [facility] [address] [id number] [address] [place] [address], [place] [address] Jul, [facility] [address] [id number] [address] [place] [address], [place] [address] 16 Jul, 2011 [facility] [address] [id number] [address] [place] [address], [place] [address] 13 Jul, 2011 [facility] [address] [id number] [address] [place] [address], [place] [address] 09 Jul, 2011 [facility] [address] [id number] [address] [place] [address], [place] [address] 07 Jul, 2011 [facility] [address] [id number] [address] [place] [address], [place] [address] Jul, 2011 [facility] [address] [id number] [address] [place] [address], [place] [address] Jul, [facility] [address] [id number] [address] [place] [address], [place] [address] Jul, [facility] [address] [id number] [address] [place] [address], [place] [address] Jun, [facility] [address] [id number] [address] [place] [address], [place] [address] Jun, [facility] [address] [id number] [address] [place] [address], [place] [address] May, [facility] [address] [id number] [address] [place] [address], [place] [address] May, [facility] [address] [id number] [address] [place] [address], [place] [address] May, [facility] [address] [id number] [address] [place] [address], [place] [address] May, [facility] [address] [id number] [address] [place] [address], [place] [address] Apr, [facility] [address] [id number] [address] [place] [address], [place] [address] Apr, [facility] [address] [id number] [address] [place] [address], [place] [address] Apr, [facility] [address] [id number] [address] [place] [address], [place] [address] 18 Mar, 2011 [facility] [address] [id number] [address] [place] [address], [place] [address] 18 Mar, 2011 [facility] [address] [id number] [address] [place] [address], [place] [address] 18 Mar, 2011 [facility] [address] [id number] [address] [place] [address], [place] [address] 2011 [facility] [address] [id number] [address] [place] [address], [place] [address] Dec, [facility] [address] [id number] [address] [place] [address], [place] [address] October, [facility] [address] [id number] [address] [place] [address], [place] [address] 28 May, 2010 [facility] [address] [id number] [address] [place] [address], [place] [address] 13 May, 2010 [facility] [address] [id number] [address] [place] [address], [place] [address] 13 May, 2010 [facility] [address] [id number] [address] [place] [address], [place] [address] 06 May, 2010 [facility] [address] [id number] [address] [place] [address], [place] [address] Mar, [facility] [address] [id number] [address] [place] [address], [place] [address] Mar, [facility] [address] [id number] [address] [place] [address], [place] [address] 31 May, 2009 [facility] [address] [id number] [address] [place] [address], [place] [address] 30 May, 2009 [facility] [address] [id number] [address] [place] [address], [place] [address] 08 May, 2009 [facility] [address] [id number] [address] [place] [address], [place] [address] 08 May, 2009 [facility] [address] [id number] [address] [place] [address] Apr, [facility] [address] [facility] [id number] [address] [place] [address] Apr, [facility] [address] [facility] [id number] [address] [place] [address] October, IMMUNIZATIONS No Known Immunizations SOCIAL HISTORY [...]
--- OUTSIDE RECORDS SUMMARY | 2020-01-13 11:39 | XMS REPORT ---
Author Author Monique RAHMAN [facility] Address [address] [place] [address] Care Team Providers Care Program Clinician Name Role Phone RASHEED RAHMAN Unavailable PROBLEMS Type Condition ICD9-CM Code QEM67-JO Code Onset Dates Condition S tatus SNOMED Code Problem History of illicit drug use Z87.898 Ac tive 422875664 Problem Snoring R06.83 Active 41073326 Problem Impaired circulation I99.9 Active 58051191 Problem MRSA (methicillin resistant staph aureus) culture positive Z22.322 Active 196820814 Problem Panic disorder without agoraphobia F41.0 Active 52976101 Problem Dysthymic disorder F34.1 Active 7 7299456 Problem Mood disorder F39 Active 468103 05 Problem Arthritis M19.90 Active 1143557 Problem Mild chronic obstructive pulmonary disease J44.9 Active 301859984 Problem Mild persistent asthma without complication J45.30 Active 884200362 Problem Essential hypertension I10 Active 31392596 Problem On home oxygen therapy Z99.81 Active 302334159189 Problem 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 Active 964478 02 Problem Neuropathy G62.9 Active 549479977 Problem 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 Active 501723848 Problem Major depressive disorder, recurrent episode, moderate F33.1 Active 881865513 Problem Psychotic disorder F29 Active 6 4562190 Problem Hypertension, benign I10 Active 71332547 Problem Onychomycosis B35.1 Active 646233 008 Problem Body mass index (BMI) 40.0-44.9, adult Z68.41 Active 070570175 Problem Varicose veins of both lower extremities I83.93 Active 90399513 Problem Sciatica, left side M54.32 Active 02513456 Problem Agoraphobia F40.00 Active 28366348 Problem Fatigue R53.83 Active 46925977 Problem Major depressive disorder in full remission F32.5 Active 97567851 Problem Slow transit constipation K59.01 Acti ve 69428140 Problem Chronic obstructive pulmonary disease, unspecified COPD ty pe J44.9 Active 43217162 Problem Unspecified psychosis not du e to a substance or known physiological condition F29 Active 471344763 ALLERGIES No Information ENCOUNTERS Encounter Location Date Diagnosis [place] [address] [place] [id number] [place] [address] Nov, [place] [address] [facility] [id number] [address] [place] [address] Nov, [place] [address] [place] [id number] [place] [address] Nov, [place] [address] [address] October, Major depressive disorder, r ecurrent episode, moderate F33.1 and Panic disorder without agoraphobia F41.0 [place] [address] [place] [id number] [place] [address] October, Abdominal pain, right upper quadrant R10.11 [place] [address] [place] [id number] [address] [place] [address] Sep, [id number] [place] [address] Sep, [place] [address] [place] [id number] [address] [place] [address] 15 Sep, 2019 Abdominal pain, right upper quadrant R10.11 [place] [address] [place] [id number] [address] [place] [address] 06 Sep, 2019 Panic disorder without agora phobia F41.0 ; Major depressive disorder, recurrent episode, moderate F33.1 and Morbid obesity E66.01 [place] [address] [place] [id number] [address] [place] [address] Aug, Bronchitis J40 [place] [address] [place] [id number] [address] [place] [address] Aug, Sciatica, left side M54.32 a nd Morbid obesity E66.01 [place] [address] [address] Aug, [place] [address] [address] Aug, Sciatica, left side M54.32 [place] [address] [address] Aug, Neuropathy G62.9 ; Onychomyc osis B35.1 ; Callus of foot L84 and Skin fissures R23.4 [place] [address] [address] Jul, [place] [address] [address] Jul, Morbid obesity E66.01 [place] [address] [address] Jul, Unspecified psychosis not du e to a substance or known physiological condition F29 ; Chronic obstructive pulmonary disease, unspecified COPD type J44.9 and Body mass index (BMI) 40.0-44.9, adult Z68.41 [place] [address] [address] Jun, [place] [address] [address] Jun, Morbid obesity E66.01 [place] [address] [address] May, Morbid obesity E66.01 [place] [address] [address] May, Encounter for immunization Z 23 [place] [address] [address] May, Major depressive disorder, r ecurrent episode, moderate F33.1 ; Panic disorder without agoraphobia F41.0 and Morbid obesity E66.01 [place] [address] [place] [id number] [place] [address] May, Major depressive disorder in full remission F32.5 and Panic disorder without agoraphobia F41.0 [place] [address] [place] [id number] [address] [place] [address] Apr, Morbid obesity E66.01 [place] [address] [place] [id number] [place] [address] Apr, Slow transit constipation K5 9.01 and Cellulitis of left lower extremity L03.116 [place] [address] [address] Apr, Morbid obesity E66.01 [place] [address] [address] Apr, [place] [address] [address] Apr, Major depressive disorder, r ecurrent episode, moderate F33.1 and Panic disorder without agoraphobia F41.0 [place] [address] [address] Mar, Viral upper respiratory trac t infection J06.9 [place] [address] [address] Mar, Bronchitis J40 and Encounter for immunization Z23 [place] [address] [place] [id number] [place] [address] Mar, Morbid obesity E66.01 [place] [address] [address] Feb, Major depressive disorder, r ecurrent episode, moderate F33.1 and Panic disorder without agoraphobia F41.0 [place] [address] [place] [id number] [place] [address] Feb, Morbid obesity E66.01 [place] [address] [facility] [id number] [address] [place] [address] Feb, Onychomycosis B35.1 ; 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 and Xerosis of skin L85.3 [place] [address] [facility] [id number] [address] [place] [address] Feb, Major depressive disorder, r ecurrent episode, moderate F33.1 ; Panic disorder without agoraphobia F41.0 and Morbid obesity E66.01 [place] [address] [facility] [id number] [address] [place] [address] Jan, Major depressive disorder in full remission F32.5 and Panic disorder without agoraphobia F41.0 [place] [address] [facility] [id number] [address] [place] [address] Jan, Pneumonia of both lower lobe s due to infectious organism J18.1 and Morbid obesity E66.01 [place] [address] [facility] [id number] [address] [place] [address] Jan, [place] [address] [facility] [id number] [address] [place] [address] Jan, Major depressive disorder in full remission F32.5 and Panic disorder without agoraphobia F41.0 [place] [address] [facility] [id number] [address] [place] [address] Jan, [place] [address] [facility] [id number] [address] [place] [address] Jan, Major depressive disorder, r ecurrent episode, moderate F33.1 ; Panic disorder without agoraphobia F41.0 and Morbid obesity E66.01 [place] [address] [facility] [id number] [address] [place] [address] Dec, Bilious vomiting with nausea R11.14 ; Coughing R05 and Choking, subsequent encounter T17.308D [place] [address] [place] [id number] [address] [place] [address] Dec, Morbid obesity E66.01 [place] [address] [facility] [id number] [address] [place] [address] Dec, Major depressive disorder, r ecurrent episode, moderate F33.1 and Panic disorder without agoraphobia F41.0 [place] [address] [facility] [id number] [address] [place] [address] Dec, [place] [address] [facility] [id number] [address] [place] [address] Dec, Major depressive disorder, r ecurrent episode, moderate F33.1 [place] [address] [facility] [id number] [address] [place] [address] Nov, Major depressive disorder, r ecurrent episode, moderate F33.1 ; Panic disorder without agoraphobia F41.0 and Morbid obesity E66.01 [place] [address] [place] [id number] [address] [place] [address] Nov, Morbid obesity E66.01 [place] [address] [place] [id number] [address] [place] [address] Nov, Major depressive disorder, r ecurrent episode, moderate F33.1 and Panic disorder without agoraphobia F41.0 [facility] [address] [place] [id number] [place] [address] Nov, Allergic reaction, initial e ncounter T78.40XA and Morbid obesity E66.01 [place] [address] [facility] [id number] [address] [place] [address] Nov, [place] [address] [facility] [id number] [address] [place] [address] 13 Nov, 2018 Morbid obesity E66.01 ; Swal lowing problem R13.10 and Hypertension, benign I10 [facility] [address] [facility] [id number] [address] [place] [address] 07 Nov, 2018 Morbid obesity E66.01 ; COPD exacerbation J44.1 and Non- recurrent acute suppurative otitis media of left ear without spontaneous rupture of tympanic membrane H66.002 [facility] [address] [facility] [id number] [address] [place] [address] Nov, Onychomycosis B35.1 ; Neurop athy G62.9 and Fissure in skin of foot R23.4 [facility] [address] [id number] [address] [place] [address] October, Major depressive disorder, r ecurrent episode, moderate F33.1 ; Panic disorder without agoraphobia F41.0 and Morbid obesity E66.01 [facility] [address] [facility] [id number] [address] [place] [phone] October, Viral upper respiratory trac t infection J06.9 [facility] [address] [facility] [id number] [address] [place] [address] October, [facility] [address] [facility] [id number] [address] [place] [address] October, Major depressive disorder, r ecurrent episode, moderate F33.1 and Panic disorder without agoraphobia F41.0 [facility] [address] [facility] [id number] [address] [place] [address] October, [facility] [address] [facility] [id number] [address] [place] [address] October, [facility] [address] [facility] [id number] [address] [place] [address] October, [facility] [address] [facility] [id number] [address] [place] [address] October, [facility] [address] [facility] [id number] [address] [place] [address] October, [facility] [address] [facility] [id number] [address] [place] [address] October, [facility] [address] [facility] [id number] [address] [place] [address] October, Major depressive disorder, r ecurrent episode, moderate F33.1 and Panic disorder without agoraphobia F41.0 [facility] [address] [facility] [id number] [address] [place] [address] Sep, Morbid obesity E66.01 and Vane mbar neuritis M54.16 [facility] [address] [facility] [id number] [address] [place] [address] Sep, Panic disorder without agora phobia F41.0 and Major depressive disorder, recurrent episode, moderate F33.[address] [facility] [address] [facility] [id number] [address] [place] [address] Sep, Gastroenteritis K52.9 ; Low back pain M54.5 ; Other chronic pain G89.29 and Morbid obesity E66.01 [facility] [address] [facility] [id number] [address] [place] [address] Sep, Major depressive disorder, r ecurrent episode, moderate F33.1 ; Panic disorder without agoraphobia F41.0 and 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 [facility] [address] [facility] [id number] [address] [place] [address] Sep, Panic disorder without agora phobia F41.0 [facility] [address] [facility] [id number] [address] [place] [address] Sep, Panic disorder without agora phobia F41.0 [facility] [address] [facility] [id number] [address] [place] [address] Aug, Panic disorder without agora phobia F41.0 ; Major depressive disorder, recurrent episode, moderate F33.1 ; 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 ; Psychotic disorder F29 ; Tardive dyskinesia G24.01 and Morbid obesity E66.01 [facility] [address] [facility] [id number] [address] [place] [address] Aug, Dysthymic disorder F34.1 and Psychotic disorder F29 [facility] [address] [facility] [id number] [address] [place] [address] Aug, Encounter for Medicare kai smith wellness exam Z00.00 ; Morbid obesity E66.01 and 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.610 [place] [address] [place] [address] Aug, Dysthymic disorder F34.1 and Psychotic disorder F29 [place] [address] [address] Aug, Neuropathy G62.9 ; Onychomyc osis B35.1 and Xerosis of skin L85.3 [place] [address] [address] Jul, [place] [address] [place] [address] Jul, Mood disorder F39 ; Wheezing R06.2 ; Choking, initial encounter T17.308A and Coughing R05 [place] [address] [place] [id number] [place] [address] Jul, Low back pain M54.5 [facility] [address] [place] [id number] [place] [address] Jun, Flu-like symptoms R68.89 ; B SD 45.0-49.9, adult Z68.42 ; COPD exacerbation J44.1 and Acute bronchitis J20.9 [place] [address] [place] [address] Jun, [place] [address] [place] [address] May, [place] [address] [address] May, Onychomycosis B35.1 and 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 [facility] [address] [place] [address] May, Low back pain M54.5 and Abdoulaye a leg R60.0 [place] [address] [place] [address] 11 May, 2018 BMI 45.0-49.9, adult Z68.42 ; Well woman exam with routine gynecological exam Z01.419 and Breast cancer screening Z12.31 [place] [address] [address] 19 Apr, 2018 Arthritis M19.90 [place] [address] [place] [id number] [place] [address] 16 Apr, 2018 Arthritis M19.90 and Otalgia of both ears H92.03 [place] [id number] [place] [address] 28 Feb, 2018 [place] [address] [address] 28 Feb, 2018 Low back pain M54.5 ; Other chronic pain G89.29 ; Exertional asthma J45.990 and Encounter for immunization Z23 [place] [address] [place] [id number] [address] [place] [address] 21 Feb, 2018 Skin fissures R23.4 ; Neurop athy G62.9 and Onychomycosis B35.1 [place] [address] [place] [id number] [place] [address] 05 Feb, 2018 Dysthymic disorder F34.1 [place] [address] [place] [id number] [address] [place] [address] 04 Feb, 2018 [place] [address] [place] [id number] [address] [place] [address] Jan, [place] [address] [place] [address] Jan, Abrasion of right elbow, ini tial encounter S50.311A ; Abrasion, right knee, initial encounter S80.211A and Sprain of other ligament of right ankle, initial encounter S93.491A [facility] [address] [address] Jan, [facility] [address] [address] Jan, Injury of left ankle, initia l encounter S99.912A ; Fall down stairs, initial encounter W10.8XXA and BMI 45.0-49.9, adult Z68.42 [place] [address] [address] Jan, COPD exacerbation J44.1 [place] [address] [address] Jan, 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 [place] [address] [address] 08 Jan, 2018 Bronchitis J40 and Acute sup purative otitis media of left ear without spontaneous rupture of tympanic membrane, recurrence not specified H66.002 [facility] [address] [address] Jan, [place] [address] [address] 03 Jan, 2018 Bronchitis J40 and BMI 40.0- 44.9, adult Z68.41 [place] [address] [address] Jan, [place] [address] [address] Dec, Gastric pain R10.9 [place] [address] [address] Dec, [place] [address] [address] Dec, History of illicit drug use Z87.898 ; Neuropathy G62.9 ; COPD (chronic obstructive pulmonary disease) with chronic bronchitis J44.9 and Acute pain of right knee M25.561 [place] [address] [place] [address] 30 Nov, 2017 [place] [address] [address] 15 Nov, 2017 Onychomycosis B35.1 and Cont usion of left foot, subsequent encounter S90.32XD [place] [address] [address] 13 Nov, 2017 COPD exacerbation J44.1 [place] [address] [address] Sep, [place] [address] [address] Sep, Dysthymic disorder F34.1 ; T obacco abuse Z72.0 ; Pain in right knee M25.561 ; Pain in left knee M25.562 ; Other chronic pain G89.29 and BMI 40.0- 44.9, adult Z68.41 [place] [address] [address] Aug, Major depressive disorder, r ecurrent episode, moderate F33.1 and 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 [place] [address] [place] [id number] [place] [address] Aug, Dysthymic disorder F34.1 ; N on-pressure chronic ulcer of left thigh, unspecified ulcer stage L97.129 ; Tobacco abuse Z72.0 ; Mild chronic obstructive pulmonary disease J44.9 and Forgetfulness R68.89 [place] [address] [place] [id number] [place] [address] 09 Aug, 2017 Onychomycosis B35.1 ; Fissur e in skin of foot R23.4 and Foot callus L[address] [facility] [address] [place] [address] Jul, Right medial knee pain M25.5 61 ; Upper respiratory tract infection, unspecified type J06.9 and BMI 40.0-44.9, adult Z68.41 [facility] [address] [facility] [id number] [address] [place] [address] Jul, Nausea and vomiting, intract ability of vomiting not specified, unspecified vomiting type R11.2 ; Left ear pain H92.02 and Gastric pain R10.9 [facility] [address] [place] [address] Apr, Encounter for immunization Z 23 [facility] [address] [place] [id number] [place] [address] Apr, Onychomycosis B35.1 ; Xerosi s of skin L85.3 ; Neuropathy G62.9 and 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 [facility] [address] [place] [id number] [place] [address] Jan, Onychomycosis B35.1 and Neur opathy G62.9 [facility] [address] [facility] [id number] [address] [place] [address] Dec, [place] [address] [place] [id number] [place] [address] Dec, [facility] [address] [place] [id number] [place] [address] Nov, [facility] [address] [place] [id number] [place] [address] Aug, [facility] [address] [place] [id number] [place] [address] Aug, [facility] [address] [place] [id number] [place] [address] Jul, [facility] [address] [place] [id number] [place] [address] Jul, [facility] [address] [place] [id number] [place] [address] Jul, Decubitus ulcer of left thig h, stage 2 L89.892 [facility] [address] [id number] [address] [place] [address] 17 Jul, 2016 Decubitus ulcer of left thig h, stage 2 L89.892 [facility] [address] [id number] [address] [place] [address] 17 Jul, 2016 [facility] [address] [id number] [address] [place] [address] 15 Jul, 2016 Decubitus ulcer of left thig h, stage 2 L89.892 [facility] [address] [facility] [id number] [address] [place] [address] 14 Jul, 2016 [facility] [address] [facility] [id number] [address] [place] [address] 13 Jul, 2016 Cellulitis of other specifie d site L03.818 ; Illicit drug use F19.90 and Decubitus ulcer of left thigh, stage 2 L89.892 [facility] [address] [facility] [id number] [address] [place] [id number] Jul, [facility] [address] [facility] [id number] [address] [place] [id number] Jul, Cellulitis of right breast N 61.0 [facility] [address] [facility] [id number] [address] [place] [phone] Jun, [facility] [address] [facility] [id number] [address] [place] [id number] Jun, [facility] [address] [facility] [id number] [address] [place] [id number] Jun, Wheezing R06.2 and Arthralgi a, unspecified joint M25.50 [facility] [address] [id number] [address] [place] [id number] May, [facility] [address] [facility] [id number] [address] [place] [phone] May, [facility] [address] [id number] [address] [place] [phone] May, [facility] [address] [id number] [address] [place] [phone] 05 May, 2016 Shortness of breath R06.02 [facility] [address] [id number] [address] [place] [id number] 02 May, 2016 Onychomycosis B35.1 and Fiss ure in skin of foot R23.4 [facility] [address] [id number] [address] [place] [id number] 28 Apr, 2016 [facility] [address] [id number] [address] [place] [phone] 18 Apr, 2016 Dizziness R42 [facility] [address] [facility] [id number] [address] [place] [id number] 14 Apr, 2016 Shortness of breath R06.02 ; Essential hypertension I10 ; Dizziness R42 and On home oxygen therapy Z99.81 [facility] [address] [id number] [address] [place] [address] Apr, [facility] [address] [id number] [address] [place] [id number] 08 Apr, 2016 [facility] [address] [id number] [address] [place] [address] Apr, [facility] [address] [id number] [address] [place] [address] Apr, [facility] [address] [id number] [address] [place] [address] Apr, [facility] [address] [id number] [address] [place] [address] Apr, [facility] [address] [id number] [address] [place] [address] Apr, [facility] [address] [id number] [address] [place] [address] Mar, Mild chronic obstructive pul monary disease J44.9 [facility] [address] [facility] [id number] [address] [place] [address] Mar, [facility] [address] [facility] [id number] [address] [place] [address] Mar, Epigastric pain R10.13 ; Low back pain M54.5 ; Other chronic pain G89.29 and Breast cancer screening Z12.39 [facility] [address] [facility] [id number] [address] [place] [address] Mar, [facility] [address] [facility] [id number] [address] [place] [id number] Mar, [facility] [address] [facility] [id number] [address] [place] [address] Feb, [place] [address] [place] [id number] [address] [place] [id number] 08 Feb, 2016 [facility] [address] [facility] [id number] [address] [place] [address] 02 Feb, 2016 Fissure in skin of foot R23. 4 and Onychomycosis B35.1 [place] [address] [facility] [id number] [address] [place] [address] Jan, Agoraphobia F40.00 [place] [address] [place] [id number] [address] [place] [address] 14 Dec, 2015 Agoraphobia F40.00 [place] [address] [facility] [id number] [address] [place] [address] 07 Dec, 2015 Mild persistent asthma witho ut complication J45.30 ; Dysthymic disorder F34.1 and Upper respiratory tract infection, unspecified type J06.9 [place] [address] [facility] [id number] [address] [place] [address] 16 Nov, 2015 Agoraphobia F40.00 [place] [address] [place] [id number] [address] [place] [address] October, Agoraphobia F40.00 [facility] [address] [address] Sep, Panic disorder without agora phobia F41.0 ; Agoraphobia F40.00 and Dysthymic disorder F34.1 [facility] [address] [address] Sep, Panic attacks F41.0 [facility] [address] [place] [id number] [place] [address] Sep, [facility] [address] [address] Sep, Panic disorder without agora phobia F41.0 ; Varicose veins of both lower extremities I83.93 and Fatigue R53.83 [facility] [address] [address] Sep, Fatigue R53.83 [facility] [address] [address] Sep, [facility] [address] [address] Aug, [facility] [address] [address] Aug, [facility] [address] [address] Aug, Type 2 diabetes mellitus wit h diabetic neuropathic arthropathy E11.610 [facility] [address] [place] [id number] [address] [place] [address] Aug, Panic disorder without agora phobia F41.0 ; Agoraphobia F40.00 and Dysthymic disorder F34.1 [facility] [address] [place] [id number] [address] [place] [address] Aug, Shortness of breath R06.02 ; Panic attacks F41.0 ; COPD (chronic obstructive pulmonary disease) J44.9 ; Tobacco abuse Z72.0 ; Family history of diabetes mellitus Z83.3 and Weight gain R63.5 [place] [address] [address] Aug, [place] [address] [address] Jul, [place] [address] [address] Jun, Onychomycosis B35.1 ; Neurop athy G62.9 and Impaired circulation I99.[address] [address] Mar, Fissure in skin of foot R23. 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 [address] Feb, Family history of coronary a rteriosclerosis V17.[address] [address] Feb, Allergic rhinitis due to darien agnieszka 477.0 ; Unspecified breast screening V76.10 ; Anxiety 300.00 and Family history of coronary arteriosclerosis V17.3 [place] [address] [address] Jan, [place] [address] [address] Dec, [place] [address] [address] Dec, Onychomycosis 110.1 and Skin fissures 709.8 [place] [address] [address] Sep, [place] [address] [address] Sep, [facility] [address] [id number] [address] [place] [address], [place] [address] Aug, [facility] [address] [id number] [address] [place] [address], [place] [address] Aug, [facility] [address] [id number] [address] [place] [address], [place] [address] Jul, [facility] [address] [id number] [address] [place] [address], [place] [address] Jul, [facility] [address] [id number] [address] [place] [address], [place] [address] Jun, [facility] [address] [id number] [address] [place] [address], [place] [address] Jun, [facility] [address] [id number] [address] [place] [address], [place] [address] Jun, [facility] [address] [id number] [address] [place] [address], [place] [address] Jun, [facility] [address] [id number] [address] [place] [address], [place] [address] Jun, [facility] [address] [id number] [address] [place] [address], [place] [address] May, [facility] [address] [id number] [address] [place] [address], [place] [address] May, [facility] [address] [id number] [address] [place] [address], [place] [address] May, [facility] [address] [id number] [address] [place] [address], [place] [address] May, [facility] [address] [id number] [address] [place] [address], [place] [address] May, [facility] [address] [id number] [address] [place] [address], [place] [address] May, [facility] [address] [id number] [address] [place] [address], [place] [address] May, [facility] [address] [id number] [address] [place] [address], [place] [address] May, [facility] [address] [id number] [address] [place] [address], [place] [address] Apr, [facility] [address] [id number] [address] [place] [address], [place] [address] Apr, [facility] [address] [id number] [address] [place] [address], [place] [address] Apr, [facility] [address] [id number] [address] [place] [address], [place] [address] Apr, [facility] [address] [id number] [address] [place] [address], [place] [address] Apr, [facility] [address] [id number] [address] [place] [address], [place] [address] Apr, [facility] [address] [id number] [address] [place] [address], [place] [address] Apr, [facility] [address] [id number] [address] [place] [address], [place] [address] Apr, [facility] [address] [id number] [address] [place] [address], [place] [address] Apr, [facility] [address] [id number] [address] [place] [address], [place] [address] Apr, [facility] [address] [id number] [address] [place] [address], [place] [address] Mar, [facility] [address] [id number] [address] [place] [address], [place] [address] Mar, [facility] [address] [id number] [address] [place] [address], [place] [address] Mar, [facility] [address] [id number] [address] [place] [address], [place] [address] Mar, [facility] [address] [id number] [address] [place] [address], [place] [address] Mar, [facility] [address] [id number] [address] [place] [address], [place] [address] Mar, [facility] [address] [id number] [address] [place] [address], [place] [address] Mar, [facility] [address] [id number] [address] [place] [address], [place] [address] Mar, [facility] [address] [id number] [address] [place] [address], [place] [address] Mar, [facility] [address] [id number] [address] [place] [address], [place] [address] Mar, [facility] [address] [id number] [address] [place] [address], [place] [address] Mar, [facility] [address] [id number] [address] [place] [address], [place] [address] Mar, [facility] [address] [id number] [address] [place] [address], [place] [address] Mar, [facility] [address] [id number] [address] [place] [address] Mar, [facility] [address] [id number] [address] [place] [address], [place] [address] Mar, [facility] [address] [id number] [address] [place] [address] Mar, [facility] [address] [id number] [address] [place] [address], [place] [address] Mar, [facility] [address] [id number] [address] [place] [address], [place] [address] Mar, [facility] [address] [id number] [address] [place] [address], [place] [address] 16 Mar, 2014 [facility] [address] [id number] [address] [place] [address], [place] [address] 15 Mar, 2013 [facility] [address] [id number] [address] [place] [address], [place] [address] 14 Mar, 2013 [facility] [address] [id number] [address] [place] [address], [place] [address] 14 Mar, 2013 [facility] [address] [id number] [address] [place] [address], [place] [address] 14 Mar, 2013 [facility] [address] [id number] [address] [place] [address], [place] [address] 14 Mar, 2013 [facility] [address] [id number] [address] [place] [address], [place] [address] 09 Mar, 2013 [facility] [address] [id number] [address] [place] [address], [place] [address] 09 Mar, 2013 [facility] [address] [id number] [address] [place] [address], [place] [address] 09 Mar, 2013 [facility] [address] [id number] [address] [place] [address], [place] [address] 09 Mar, 2013 [facility] [address] [id number] [address] [place] [address], [place] [address] 30 Sep, 2013 [facility] [address] [id number] [address] [place] [address], [place] [address] 30 Sep, 2013 [facility] [address] [id number] [address] [place] [address], [place] [address] 30 Sep, 2013 [facility] [address] [id number] [address] [place] [address], [place] [address] 30 Sep, 2013 [facility] [address] [id number] [address] [place] [address], [place] [address] 26 Sep, 2013 [facility] [address] [id number] [address] [place] [address], [place] [address] 26 Sep, 2013 [facility] [address] [id number] [address] [place] [address], [place] [address] 09 Sep, 2013 [facility] [address] [id number] [address] [address] 09 Feb, 2013 [facility] [address] [id number] [address] [address] Feb, 2013 [facility] [address] [id number] [address] [address] Feb, 2013 [facility] [address] [id number] [address] [place] [address], [place] [address] Feb, 2013 [facility] [address] [id number] [address] [place] [address], [place] [address] Feb, 2013 [facility] [address] [id number] [address] [place] [address], [place] [address] Jan, [facility] [address] [id number] [address] [place] [address], [place] [address] Jan, [facility] [address] [id number] [address] [place] [address], [place] [address] Jan, [facility] [address] [id number] [address] [place] [address], [place] [address] Jan, [facility] [address] [id number] [address] [place] [address], [place] [address] Jan, [facility] [address] [id number] [address] [place] [address], [place] [address] Jan, [facility] [address] [id number] [address] [place] [address], [place] [address] Jan, [facility] [address] [id number] [address] [place] [address], [place] [address] Jan, [facility] [address] [id number] [address] [place] [address], [place] [address] Jan, [facility] [address] [id number] [address] [place] [address], [place] [address] Jan, [facility] [address] [id number] [address] [place] [address], [place] [address] Jan, [facility] [address] [id number] [address] [address] Jan, [facility] [address] [id number] [address] [place] [address], [place] [address] Jan, [facility] [address] [id number] [address] [place] [address], [place] [address] Dec, [facility] [address] [id number] [address] [place] [address], [place] [address] Dec, [facility] [address] [id number] [address] [place] [address], [place] [address] Dec, [facility] [address] [id number] [address] [place] [address], [place] [address] Dec, [facility] [address] [id number] [address] [place] [address], [place] [address] Dec, [facility] [address] [id number] [address] [place] [address], [place] [address] Dec, [facility] [address] [id number] [address] [place] [address], [place] [address] Dec, [facility] [address] [id number] [address] [place] [address], [place] [address] Dec, [facility] [address] [id number] [address] [place] [address], [place] [address] Dec, [facility] [address] [id number] [address] [place] [address], [place] [address] Dec, [facility] [address] [id number] [address] [place] [address], [place] [address] Dec, [facility] [address] [id number] [address] [place] [address], [place] [address] Dec, [facility] [address] [id number] [address] [place] [address], [place] [address] Dec, [facility] [address] [id number] [address] [address] Dec, 2013 [facility] [address] [id number] [address] [address] Dec, [facility] [address] [id number] [address] [address] Dec, 2013 [facility] [address] [id number] [address] [place] [address], [place] [address] Dec, [facility] [address] [id number] [address] [place] [address], [place] [address] Dec, [facility] [address] [id number] [address] [place] [address], [place] [address] Nov, [facility] [address] [id number] [address] [place] [address], [place] [address] Nov, [facility] [address] [id number] [address] [place] [address], [place] [address] Nov, [facility] [address] [id number] [address] [place] [address], [place] [address] Nov, [facility] [address] [id number] [address] [place] [address], [place] [address] Nov, [facility] [address] [id number] [address] [place] [address], [place] [address] Nov, [facility] [address] [id number] [address] [place] [address], [place] [address] Nov, [facility] [address] [id number] [address] [place] [address], [place] [address] Nov, [facility] [address] [id number] [address] [place] [address], [place] [address] Nov, [facility] [address] [id number] [address] [place] [address], [place] [address] Nov, [facility] [address] [id number] [address] [place] [address], [place] [address] Nov, [facility] [address] [id number] [address] [place] [address], [place] [address] Nov, [facility] [address] [id number] [address] [place] [address], [place] [address] Nov, [facility] [address] [id number] [address] [place] [address], [place] [address] Nov, [facility] [address] [id number] [address] [place] [address], [place] [address] Nov, [facility] [address] [id number] [address] [place] [address], [place] [address] Nov, [facility] [address] [id number] [address] [place] [address], [place] [address] Nov, [facility] [address] [id number] [address] [place] [address], [place] [address] Nov, [facility] [address] [id number] [address] [place] [address], [place] [address] Nov, [facility] [address] [id number] [address] [place] [address], [place] [address] Nov, [facility] [address] [id number] [address] [place] [address], [place] [address] October, [facility] [address] [id number] [address] [place] [address], [place] [address] October, [facility] [address] [id number] [address] [place] [address], [place] [address] October, [facility] [address] [id number] [address] [place] [address], [place] [address] October, [facility] [address] [id number] [address] [place] [address], [place] [address] Sep, [facility] [address] [id number] [address] [place] [address], [place] [address] Sep, [facility] [address] [id number] [address] [place] [address], [place] [address] Sep, [facility] [address] [id number] [address] [place] [address], [place] [address] Sep, [facility] [address] [id number] [address] [place] [address], [place] [address] Sep, [facility] [address] [id number] [address] [place] [address], [place] [address] Sep, [facility] [address] [id number] [address] [place] [address], [place] [address] Sep, [facility] [address] [id number] [address] [place] [address], [place] [address] Sep, [facility] [address] [id number] [address] [place] [address], [place] [address] Sep, [facility] [address] [id number] [address] [place] [address], [place] [address] Aug, [facility] [address] [id number] [address] [place] [address], [place] [address] Aug, [facility] [address] [id number] [address] [place] [address], [place] [address] Aug, [facility] [address] [id number] [address] [place] [address], [place] [address] Aug, [facility] [address] [id number] [address] [place] [address], [place] [address] Aug, [facility] [address] [id number] [address] [place] [address], [place] [address] Aug, [facility] [address] [id number] [address] [place] [address], [place] [address] Aug, [facility] [address] [id number] [address] [place] [address], [place] [address] Aug, [facility] [address] [id number] [address] [place] [address], [place] [address] Jul, [facility] [address] [id number] [address] [place] [address], [place] [address] Jul, [facility] [address] [id number] [address] [place] [address], [place] [address] Jun, [facility] [address] [id number] [address] [place] [address], [place] [address] Jun, [facility] [address] [id number] [address] [place] [address], [place] [address] Jun, [facility] [address] [id number] [address] [place] [address], [place] [address] Jun, [facility] [address] [id number] [address] [place] [address], [place] [address] Jun, [facility] [address] [id number] [address] [place] [address], [place] [address] Jun, [facility] [address] [id number] [address] [place] [address], [place] [address] Jun, [facility] [address] [id number] [address] [place] [address], [place] [address] Jun, [facility] [address] [id number] [address] [place] [address], [place] [address] Jun, [facility] [address] [id number] [address] [place] [address], [place] [address] Jun, [facility] [address] [id number] [address] [place] [address], [place] [address] Jun, [facility] [address] [id number] [address] [place] [address], [place] [address] Jun, [facility] [address] [id number] [address] [place] [address], [place] [address] May, [facility] [address] [id number] [address] [place] [address], [place] [address] May, [facility] [address] [id number] [address] [place] [address] [address] May, [facility] [address] [id number] [address] [place] [address], [place] [address] May, [facility] [address] [id number] [address] [place] [address], [place] [address] May, [facility] [address] [id number] [address] [place] [address], [place] [address] May, [facility] [address] [id number] [address] [place] [address], [place] [address] May, [facility] [address] [id number] [address] [place] [address], [place] [address] May, [facility] [address] [id number] [address] [place] [address], [place] [address] May, [facility] [address] [id number] [address] [place] [address], [place] [address] May, [facility] [address] [id number] [address] [place] [address], [place] [address] May, [facility] [address] [id number] [address] [place] [address], [place] [address] May, [facility] [address] [id number] [address] [place] [address], [place] [address] May, [facility] [address] [id number] [address] [place] [address], [place] [address] Apr, [facility] [address] [id number] [address] [place] [address] Apr, [facility] [address] [id number] [address] [place] [address], [place] [address] Mar, [facility] [address] [id number] [address] [place] [address], [place] [address] Mar, [facility] [address] [id number] [address] [place] [address], [place] [id number] 24 Feb, 2013 [facility] [address] [id number] [address] [place] [address], [place] [address] Feb, [facility] [address] [id number] [address] [place] [address], [place] [address] Feb, [facility] [address] [id number] [address] [place] [address], [place] [address] Feb, [facility] [address] [id number] [address] [place] [address], [place] [address] Jan, [facility] [address] [id number] [address] [place] [address], [place] [address] Jan, [facility] [address] [id number] [address] [place] [address], [place] [address] Jan, [facility] [address] [id number] [address] [place] [address], [place] [address] Jan, [facility] [address] [id number] [address] [place] [address], [place] [address] Jan, [facility] [address] [id number] [address] [place] [address], [place] [address] Jan, [facility] [address] [id number] [address] [place] [address], [place] [address] Dec, [facility] [address] [id number] [address] [place] [address], [place] [address] Dec, [facility] [address] [id number] [address] [place] [address], [place] [address] Dec, [facility] [address] [id number] [address] [place] [address], [place] [address] Dec, [facility] [address] [id number] [address] [place] [address], [place] [address] Nov, [facility] [address] [id number] [address] [place] [address], [place] [address] October, [facility] [address] [id number] [address] [place] [address], [place] [address] October, [facility] [address] [id number] [address] [place] [address], [place] [address] October, [facility] [address] [id number] [address] [place] [address], [place] [address] Sep, [facility] [address] [id number] [address] [place] [address], [place] [address] Sep, [facility] [address] [id number] [address] [place] [address], [place] [address] Jun, [facility] [address] [id number] [address] [place] [address], [place] [address] Jun, [facility] [address] [id number] [address] [place] [address], [place] [address] Jun, [facility] [address] [id number] [address] [place] [address], [place] [address] Apr, [facility] [address] [id number] [address] [place] [address], [place] [address] Apr, [facility] [address] [id number] [address] [place] [address], [place] [address] Apr, [facility] [address] [id number] [address] [place] [address], [place] [address] Apr, [facility] [address] [id number] [address] [place] [address], [place] [address] Mar, [facility] [address] [id number] [address] [place] [address], [place] [address] Mar, [facility] [address] [id number] [address] [place] [address], [place] [address] Mar, [facility] [address] [id number] [address] [place] [address], [place] [address] Mar, [facility] [address] [id number] [address] [place] [address], [place] [address] Feb, [facility] [address] [id number] [address] [place] [address], [place] [address] Feb, [facility] [address] [id number] [address] [place] [address], [place] [address] Feb, [facility] [address] [id number] [address] [place] [address], [place] [address] Jan, [facility] [address] [id number] [address] [place] [address], [place] [address] Jan, [facility] [address] [id number] [address] [place] [address], [place] [address] Jan, [facility] [address] [id number] [address] [place] [address], [place] [address] Jan, [facility] [address] [id number] [address] [place] [address], [place] [address] Dec, [facility] [address] [id number] [address] [place] [address], [place] [address] Dec, [facility] [address] [id number] [address] [place] [address], [place] [address] Nov, [facility] [address] [id number] [address] [place] [address], [place] [address] Nov, [facility] [address] [id number] [address] [place] [address], [place] [address] October, [facility] [address] [id number] [address] [place] [address], [place] [address] October, [facility] [address] [id number] [address] [place] [address], [place] [address] October, [facility] [address] [id number] [address] [place] [address], [place] [address] Sep, [facility] [address] [id number] [address] [place] [address], [place] [address] Sep, [facility] [address] [id number] [address] [place] [address], [place] [address] Sep, [facility] [address] [id number] [address] [place] [address], [place] [address] 27 Aug, 2011 [facility] [address] [id number] [address] [place] [address], [place] [address] 26 Aug, 2011 [facility] [address] [id number] [address] [place] [address], [place] [address] 15 Aug, 2011 [facility] [address] [id number] [address] [place] [address], [place] [address] 15 Aug, 2011 [facility] [address] [id number] [address] [place] [address], [place] [id number] 07 Aug, 2011 [facility] [address] [id number] [address] [place] [address], [place] [address] 23 Jul, 2011 [facility] [address] [id number] [address] [place] [address], [place] [address] 16 Jul, 2011 [facility] [address] [id number] [address] [place] [address], [place] [address] 13 Jul, 2011 [facility] [address] [id number] [address] [place] [address], [place] [address] 09 Jul, 2011 [facility] [address] [id number] [address] [place] [address], [place] [address] 07 Jul, 2011 [facility] [address] [id number] [address] [place] [address], [place] [address] 06 Jul, 2011 [facility] [address] [id number] [address] [place] [address], [place] [address] Jul, [facility] [address] [id number] [address] [place] [address], [place] [address] Jul, [facility] [address] [id number] [address] [place] [address], [place] [address] Jun, [facility] [address] [id number] [address] [place] [address], [place] [address] Jun, [facility] [address] [id number] [address] [place] [address], [place] [address] May, [facility] [address] [id number] [address] [place] [address], [place] [address] May, [facility] [address] [id number] [address] [place] [address], [place] [address] May, [facility] [address] [id number] [address] [place] [address], [place] [address] May, [facility] [address] [id number] [address] [place] [address], [place] [address] Apr, [facility] [address] [id number] [address] [place] [address], [place] [address] Apr, [facility] [address] [id number] [address] [place] [address], [place] [address] Apr, [facility] [address] [id number] [address] [place] [address], [place] [address] Mar, [facility] [address] [id number] [address] [place] [address], [place] [address] Mar, [facility] [address] [id number] [address] [place] [address], [place] [address] Mar, [facility] [address] [id number] [address] [place] [address], [place] [address] Mar, [facility] [address] [id number] [address] [place] [address], [place] [address] Dec, [facility] [address] [id number] [address] [place] [address], [place] [address] October, [facility] [address] [id number] [address] [place] [address], [place] [address] May, [facility] [address] [id number] [address] [place] [address], [place] [address] May, [facility] [address] [id number] [address] [place] [address], [place] [address] May, [facility] [address] [id number] [address] [place] [address] May, [facility] [address] [id number] [address] [place] [id number] Mar, [facility] [address] [id number] [address] [place] [address] Mar, [facility] [address] [id number] [address] [place] [id number] May, [facility] [address] [id number] [address] [place] [address] May, [facility] [address] [id number] [address] [place] [address] May, [facility] [address] [id number] [address] [place] [address] May, [facility] [address] [id number] [address] [place] [address] Apr, [facility] [address] [id number] [address] [place] [address] Apr, [facility] [address] [id number] [address] [place] [id number] October, IMMUNIZATIONS No Known Immunizations SOCIAL HISTORY [...] History Surgeries only Hospitalization History hypotension, dizziness--[facility] Hospitalization History Colonoscopy 01/30/2014 Hospitalization History pneumonia 01/2019
--- OUTSIDE RECORDS SUMMARY | 2020-01-13 11:39 | XMS REPORT ---
Author Author Monique RAHMAN [facility] Address [address] [place] [address] Care Team Providers Care Configuration Management Architect Name Role Phone RASHEED RAHMAN Unavailable PROBLEMS Type Condition ICD9-CM Code [id number] Code Onset Dates Condition S tatus SNOMED Code Problem Snoring R06.83 Active 68610184 Problem MRSA (methicillin resistant staph aureus) culture positive Z22.322 Active 718267672 Problem History of illicit drug use Z87.898 Ac tive 788733876 Problem Dysthymic disorder F34.1 Active 7 9138526 Problem Impaired circulation I99.9 Active 09393781 Problem Panic disorder without agoraphobia F41.0 Active 18864074 Problem Agoraphobia F40.00 Active 86079754 Problem Psychotic disorder F29 Active 6 4579268 Problem Mood disorder F39 Active 123122 05 Problem On home oxygen therapy Z99.81 Active 959996207784 Problem Mild chronic obstructive pulmonary disease J44.9 Active 717556153 Problem Neuropathy G62.9 Active 302233717 Problem Essential hypertension I10 Active 41870163 Problem Major depressive disorder, recurrent episode, moderate F33.1 Active 458287367 Problem 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 Active 696845 02 Problem Arthritis M19.90 Active 7480969 Problem 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 Active 731810280 Problem Hypertension, benign I10 Active 27224857 Problem Onychomycosis B35.1 Active 475547 008 Problem Major depressive disorder in full remission F32.5 Active 40933561 Problem Sciatica, left side M54.32 Active 84957414 Problem Varicose veins of both lower extremities I83.93 Active 70025455 Problem COPD exacerbation J44.1 Active 19 2475262 Problem Fatigue R53.83 Active 87275074 Problem Mild persistent asthma without complication J45.30 Active 727499428 Problem Slow transit constipation K59.01 Acti ve 67180312 Problem Chronic obstructive pulmonary disease, unspecified COPD ty pe J44.9 Active 27300511 Problem Body mass index (BMI) 40.0-44.9, adult Z68.41 Active 490121339 Problem Unspecified psychosis not du e to a substance or known physiological condition F29 Active 002678945 ALLERGIES No Information ENCOUNTERS Encounter Location Date Diagnosis [place] [address] [facility] [id number] [address] [place] [phone] Nov, [facility] [address] [facility] [id number] [address] [place] [phone] Nov, [place] [address] [facility] [id number] [address] Nov, [facility] [address] [facility] [id number] [address] [place] [id number] 12 Nov, 2019 COPD exacerbation J44.1 ; Ex posure to viral disease Z20.828 ; Sore throat J02.9 and Community acquired pneumonia of right lower lobe of lung J18.9 [place] [address] [place] [id number] [address] [place] [id number] 12 Nov, 2019 Essential hypertension I10 [place] [address] [facility] [id number] [address] [place] [phone] Nov, [facility] [id number] [place] [phone] 11 Nov, 2019 [place] [address] [facility] [id number] [address] [place] [id number] 11 Nov, 2019 Essential hypertension I10 a nd 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 arthropathy E11.610 [place] [address] [facility] [id number] [address] [place] [id number] 10 Nov, 2019 Abdominal pain, right upper quadrant R10.11 [place] [address] [facility] [id number] [address] [place] [id number] October, Major depressive disorder, r ecurrent episode, moderate F33.1 and Panic disorder without agoraphobia F41.0 [place] [address] [facility] [id number] [address] [place] [id number] October, Abdominal pain, right upper quadrant R10.11 [place] [address] [facility] [id number] [address] [place] [phone] Sep, [id number] [place] [phone] Sep, [place] [address] [facility] [id number] [address] [place] [id number] 15 Sep, 2019 Abdominal pain, right upper quadrant R10.11 [place] [address] [place] [id number] [place] [phone] Sep, Panic disorder without agora phobia F41.0 ; Major depressive disorder, recurrent episode, moderate F33.1 and Morbid obesity E66.01 [place] [address] [place] [id number] [address] [place] [phone] Aug, Bronchitis J40 [place] [address] [place] [id number] [address] [place] [id number] Aug, Sciatica, left side M54.32 a nd Morbid obesity E66.01 [place] [address] [place] [id number] [address] [place] [phone] Aug, [place] [address] [place] [id number] [address] [place] [address] Aug, Sciatica, left side M54.32 [place] [address] [place] [id number] [address] [place] [phone] Aug, Neuropathy G62.9 ; Onychomyc osis B35.1 ; Callus of foot L84 and Skin fissures R23.4 [place] [address] [place] [id number] [address] [place] [phone] Jul, [place] [address] [place] [id number] [address] [place] [address] Jul, Morbid obesity E66.01 [place] [address] [place] [id number] [address] [place] [phone] Jul, Unspecified psychosis not du e to a substance or known physiological condition F29 ; Chronic obstructive pulmonary disease, unspecified COPD type J44.9 and Body mass index (BMI) 40.0-44.9, adult Z68.41 [place] [address] [address] Jun, [place] [address] [address] Jun, Morbid obesity E66.01 [place] [address] [address] May, Morbid obesity E66.01 [place] [address] [address] May, Encounter for immunization Z 23 [place] [address] [address] May, Major depressive disorder, r ecurrent episode, moderate F33.1 ; Panic disorder without agoraphobia F41.0 and Morbid obesity E66.01 [place] [address] [address] May, Major depressive disorder in full remission F32.5 and Panic disorder without agoraphobia F41.0 [place] [address] [place] [id number] [address] [place] [address] Apr, Morbid obesity E66.01 [place] [address] [address] Apr, Slow transit constipation K5 9.01 and Cellulitis of left lower extremity L03.116 [place] [address] [place] [id number] [address] [place] [address] Apr, Morbid obesity E66.01 [place] [address] [address] Apr, [place] [address] [address] Apr, Major depressive disorder, r ecurrent episode, moderate F33.1 and Panic disorder without agoraphobia F41.0 [place] [address] [place] [id number] [address] [place] [address] Mar, Viral upper respiratory trac t infection J06.9 [place] [address] [address] Mar, Bronchitis J40 and Encounter for immunization Z23 [place] [address] [address] Mar, Morbid obesity E66.01 [place] [address] [address] Feb, Major depressive disorder, r ecurrent episode, moderate F33.1 and Panic disorder without agoraphobia F41.0 [place] [address] [address] Feb, Morbid obesity E66.01 [place] [address] [address] 06 Feb, 2019 Onychomycosis B35.1 ; 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 and Xerosis of skin L85.3 [place] [address] [address] Feb, Major depressive disorder, r ecurrent episode, moderate F33.1 ; Panic disorder without agoraphobia F41.0 and Morbid obesity E66.01 [place] [address] [address] Jan, Major depressive disorder in full remission F32.5 and Panic disorder without agoraphobia F41.0 [place] [address] [address] Jan, Pneumonia of both lower lobe s due to infectious organism J18.1 and Morbid obesity E66.01 [facility] [address] [facility] [id number] [address] [place] [phone] Jan, [place] [address] [facility] [id number] [address] [place] [phone] Jan, Major depressive disorder in full remission F32.5 and Panic disorder without agoraphobia F41.0 [place] [address] [facility] [id number] [address] [place] [phone] Jan, [place] [address] [facility] [id number] [address] [place] [phone] Jan, Major depressive disorder, r ecurrent episode, moderate F33.1 ; Panic disorder without agoraphobia F41.0 and Morbid obesity E66.01 [place] [address] [place] [id number] [address] [place] [phone] Dec, Bilious vomiting with nausea R11.14 ; Coughing R05 and Choking, subsequent encounter T17.308D [place] [address] [facility] [id number] [address] [place] [address] Dec, Morbid obesity E66.01 [place] [address] [facility] [id number] [address] [place] [id number] Dec, Major depressive disorder, r ecurrent episode, moderate F33.1 and Panic disorder without agoraphobia F41.0 [place] [address] [facility] [id number] [address] [place] [phone] Dec, [place] [address] [facility] [id number] [address] [place] [phone] Dec, Major depressive disorder, r ecurrent episode, moderate F33.1 [place] [address] [facility] [id number] [address] [place] [phone] Nov, Major depressive disorder, r ecurrent episode, moderate F33.1 ; Panic disorder without agoraphobia F41.0 and Morbid obesity E66.01 [place] [address] [address] 20 Nov, 2018 Morbid obesity E66.01 [place] [address] [address] Nov, Major depressive disorder, r ecurrent episode, moderate F33.1 and Panic disorder without agoraphobia F41.0 [facility] [place] [address] [address] Nov, Allergic reaction, initial e ncounter T78.40XA and Morbid obesity E66.01 [place] [address] [address] Nov, [place] [address] [address] Nov, Morbid obesity E66.01 ; Swal lowing problem R13.10 and Hypertension, benign I10 [facility] [place] [address] [address] Nov, Morbid obesity E66.01 ; COPD exacerbation J44.1 and Non- recurrent acute suppurative otitis media of left ear without spontaneous rupture of tympanic membrane H66.002 [place] [address] [address] 07 Nov, 2018 Onychomycosis B35.1 ; Neurop athy G62.9 and Fissure in skin of foot R23.4 [place] [address] [address] October, Major depressive disorder, r ecurrent episode, moderate F33.1 ; Panic disorder without agoraphobia F41.0 and Morbid obesity E66.01 [facility] [place] [address] [address] October, Viral upper respiratory trac t infection J06.9 [place] [address] [address] October, [facility] [address] [id number] [address] [place] [address] October, Major depressive disorder, r ecurrent episode, moderate F33.1 and Panic disorder without agoraphobia F41.0 [facility] [address] [id number] [address] [place] [phone] October, [facility] [address] [id number] [address] [place] [phone] October, [facility] [address] [id number] [address] [place] [phone] October, [facility] [address] [id number] [address] [place] [phone] October, [facility] [address] [facility] [id number] [address] [place] [phone] October, [facility] [address] [facility] [id number] [address] [place] [phone] October, [facility] [address] [facility] [id number] [address] [place] [phone] October, Major depressive disorder, r ecurrent episode, moderate F33.1 and Panic disorder without agoraphobia F41.0 [facility] [address] [facility] [id number] [address] [place] [phone] Sep, Morbid obesity E66.01 and Vane mbar neuritis M54.16 [facility] [address] [facility] [id number] [address] [place] [phone] Sep, Panic disorder without agora phobia F41.0 and Major depressive disorder, recurrent episode, moderate F33.1 [facility] [address] [facility] [id number] [address] [place] [address] Sep, Gastroenteritis K52.9 ; Low back pain M54.5 ; Other chronic pain G89.29 and Morbid obesity E66.01 [facility] [address] [facility] [id number] [address] [place] [phone] Sep, Major depressive disorder, r ecurrent episode, moderate F33.1 ; Panic disorder without agoraphobia F41.0 and 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 [place] [id number] [place] [address] Sep, Panic disorder without agora phobia F41.0 [place] [address] [address] Sep, Panic disorder without agora phobia F41.0 [place] [address] [place] [id number] [place] [address] Aug, Panic disorder without agora phobia F41.0 ; Major depressive disorder, recurrent episode, moderate F33.1 ; 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 ; Psychotic disorder F29 ; Tardive dyskinesia G24.01 and Morbid obesity E66.01 [place] [address] [address] Aug, Dysthymic disorder F34.1 and Psychotic disorder F29 [place] [address] [address] Aug, [facility] Z00.00 ; Morbid obesity E66.01 and 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 [place] [address] [address] Aug, Dysthymic disorder F34.1 and Psychotic disorder F29 [place] [address] [address] Aug, Neuropathy G62.9 ; Onychomyc osis B35.1 and Xerosis of skin L85.3 [place] [address] [place] [id number] [address] [place] [address] Jul, [place] [address] [place] [id number] [address] [place] [address] Jul, Mood disorder F39 ; Wheezing R06.2 ; Choking, initial encounter T17.308A and Coughing R05 [facility] [address] [address] Jul, Low back pain M54.5 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 [place] [address] [address] May, Low back pain M54.5 and Abdoulaye a leg R60.[address] [address] May, BMI 45.0-49.9, adult Z68.42 ; Well woman exam with routine gynecological exam Z01.419 and Breast cancer screening Z12.31 [place] [address] [address] Apr, Arthritis M19.90 [place] [address] [address] Apr, Arthritis M19.90 and Otalgia of both ears H92.03 [place] [address] [place] [id number] [address] [place] [address] Feb, [place] [address] [address] Feb, Low back pain M54.5 ; Other chronic pain G89.29 ; Exertional asthma J45.990 and Encounter for immunization Z23 [facility] [address] [place] [id number] [address] [place] [address] Feb, Skin fissures R23.4 ; Neurop athy G62.9 and Onychomycosis B35.1 [facility] [address] [place] [id number] [address] [place] [address] 05 Feb, 2018 Dysthymic disorder F34.1 [place] [id number] [place] [address] 04 Feb, 2018 [place] [address] [place] [id number] [place] [address] Jan, [place] [address] [address] Jan, Abrasion of right elbow, ini tial encounter S50.311A ; Abrasion, right knee, initial encounter S80.211A and Sprain of other ligament of right ankle, initial encounter S93.491A [place] [address] [address] Jan, 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 [place] [address] [place] [id number] [address] [place] [address] Jan, Bronchitis J40 and Acute sup purative otitis media of left ear without spontaneous rupture of tympanic membrane, recurrence not specified H66.002 [place] [address] [place] [id number] [address] [place] [address] Jan, [place] [address] [place] [id number] [address] [place] [address] Jan, Bronchitis J40 and BMI 40.0- 44.9, adult Z68.41 [place] [address] [place] [id number] [place] [address] Jan, [place] [address] [place] [id number] [place] [address] Dec, Gastric pain R10.9 [place] [address] [place] [id number] [place] [address] Dec, [place] [address] [address] Dec, History of illicit drug use Z87.898 ; Neuropathy G62.9 ; COPD (chronic obstructive pulmonary disease) with chronic bronchitis J44.9 and Acute pain of right knee M25.561 [place] [address] [address] Nov, [place] [address] [address] Nov, Onychomycosis B35.1 and Cont usion of left foot, subsequent encounter S90.32XD [place] [address] [place] [id number] [address] [place] [address] Nov, COPD exacerbation J44.1 [place] [address] [place] [id number] [place] [address] Sep, [place] [address] [place] [id number] [place] [address] Sep, Dysthymic disorder F34.1 ; T obacco abuse Z72.0 ; Pain in right knee M25.561 ; Pain in left knee M25.562 ; Other chronic pain G89.29 and BMI 40.0- 44.9, adult Z68.[address] [address] Aug, Major depressive disorder, r ecurrent episode, moderate F33.1 and 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 [address] 14 Aug, 2017 Dysthymic disorder F34.1 ; N on-pressure chronic ulcer of left thigh, unspecified ulcer stage L97.129 ; Tobacco abuse Z72.0 ; Mild chronic obstructive pulmonary disease J44.9 and Forgetfulness R68.[address] [address] 09 Aug, 2017 Onychomycosis B35.1 ; Fissur e in skin of foot R23.4 and Foot callus L84 [facility] [address] [place] [address] Jul, Right medial knee pain M25.5 61 ; Upper respiratory tract infection, unspecified type J06.9 and BMI 40.0-44.9, adult Z68.41 [facility] [address] [address] 08 Jul, 2017 Nausea and vomiting, intract ability of vomiting not specified, unspecified vomiting type R11.2 ; Left ear pain H92.02 and Gastric pain R10.9 [place] [address] [address] Apr, Encounter for immunization Z [address] [address] Apr, Onychomycosis B35.1 ; Xerosi s of skin L85.3 ; Neuropathy G62.9 and Type 2 diabetes mellitus with diabetic neuropathic arthropathy E11.[address] [address] Jan, Onychomycosis B35.1 and Neur opathy G62.9 [facility] [address] [facility] [id number] [address] [place] [address] Dec, [facility] [address] [facility] [id number] [address] [place] [address] Dec, [facility] [address] [facility] [id number] [address] [place] [phone] Nov, [facility] [address] [facility] [id number] [address] [place] [address] Aug, [facility] [address] [facility] [id number] [address] [place] [address] Aug, [facility] [address] [facility] [id number] [address] [place] [id number] Jul, [facility] [address] [facility] [id number] [address] [place] [address] Jul, [facility] [address] [facility] [id number] [address] [place] [address] Jul, Decubitus ulcer of left thig h, stage 2 L89.892 [facility] [address] [place] [id number] [address] [place] [address] 17 Jul, 2016 Decubitus ulcer of left thig h, stage 2 L89.892 [facility] [address] [facility] [id number] [address] [place] [id number] 17 Jul, 2016 [facility] [address] [facility] [id number] [address] [place] [id number] 15 Jul, 2016 Decubitus ulcer of left thig h, stage 2 L89.892 [facility] [address] [facility] [id number] [address] [place] [address] 14 Jul, 2016 [facility] [address] [facility] [id number] [address] [place] [address] 13 Jul, 2016 Cellulitis of other specifie d site L03.818 ; Illicit drug use F19.90 and Decubitus ulcer of left thigh, stage 2 L89.892 [facility] [address] [place] [id number] [address] [place] [id number] Jul, [facility] [address] [place] [id number] [place] [address] Jul, Cellulitis of right breast N 61.0 [facility] [address] [place] [id number] [place] [id number] Jun, [facility] [address] [place] [id number] [place] [address] Jun, [facility] [address] [id number] Jun, Wheezing R06.2 and Arthralgi a, unspecified joint M25.50 [facility] [id number] [place] [phone] May, [facility] [id number] [place] [phone] May, [facility] [id number] [place] [phone] May, [facility] [id number] [place] [phone] May, Shortness of breath R06.02 [facility] [id number] [address] [place] [phone] May, Onychomycosis B35.1 and Fiss ure in skin of foot R23.4 [facility] [id number] [address] [place] [phone] Apr, [facility] [id number] [address] [place] [phone] 18 Apr, 2016 Dizziness R42 [facility] [id number] [address] [place] [phone] Apr, Shortness of breath R06.02 ; Essential hypertension I10 ; Dizziness R42 and On home oxygen therapy Z99.81 [facility] [address] [id number] [address] [place] [phone] Apr, [facility] [facility] [address] [id number] [address] [place] [address] Apr, [facility] [address] [id number] [address] [place] [address] Apr, [facility] [address] [id number] [address] [place] [address] Apr, [facility] [address] [id number] [address] [place] [address] Apr, [facility] [address] [id number] [address] [place] [address] Apr, [facility] [address] [id number] [address] [place] [address] Apr, [facility] [address] [id number] [address] [place] [address] Mar, Mild chronic obstructive pul monary disease J44.9 [facility] [address] [id number] [address] [place] [address] Mar, [facility] [address] [id number] [address] [place] [address] Mar, Epigastric pain R10.13 ; Low back pain M54.5 ; Other chronic pain G89.29 and Breast cancer screening Z12.39 [facility] [address] [id number] [address] [place] [address] Mar, [facility] [address] [id number] [address] [place] [address] Mar, [facility] [address] [id number] [address] [place] [address] Feb, [facility] [address] [facility] [id number] [address] [place] [id number] 08 Feb, 2016 [place] [address] [facility] [id number] [address] [place] [address] Feb, Fissure in skin of foot R23. 4 and Onychomycosis B35.1 [place] [address] [place] [id number] [address] [place] [address] Jan, Agoraphobia F40.00 [place] [address] [facility] [id number] [address] [place] [address] Dec, Agoraphobia F40.00 [place] [address] [place] [id number] [address] [place] [address] Dec, Mild persistent asthma witho ut complication J45.30 ; Dysthymic disorder F34.1 and Upper respiratory tract infection, unspecified type J06.9 [place] [id number] [place] [address] Nov, Agoraphobia F40.00 [place] [address] [place] [id number] [address] [place] [address] October, Agoraphobia F40.00 [place] [address] [place] [id number] [address] [place] [address] Sep, Panic disorder without agora phobia F41.0 ; Agoraphobia F40.00 and Dysthymic disorder F34.1 [place] [address] [place] [id number] [address] [place] [address] Sep, Panic attacks F41.0 [place] [address] [facility] [id number] [address] [place] [address] Sep, [place] [address] [place] [id number] [address] [place] [address] Sep, Panic disorder without agora phobia F41.0 ; Varicose veins of both lower extremities I83.93 and Fatigue R53.83 [place] [address] [place] [id number] [address] [place] [address] 14 Sep, 2015 Fatigue R53.83 [place] [address] [id number] 05 Sep, 2015 [place] [address] [address] Aug, [place] [address] [address] Aug, [place] [address] [address] Aug, Type 2 diabetes mellitus wit h diabetic neuropathic arthropathy E11.610 [place] [address] [address] Aug, Panic disorder without agora phobia F41.0 ; Agoraphobia F40.00 and Dysthymic disorder F34.1 [place] [address] [place] [id number] [address] [place] [address] Aug, Shortness of breath R06.02 ; Panic attacks F41.0 ; COPD (chronic obstructive pulmonary disease) J44.9 ; Tobacco abuse Z72.0 ; Family history of diabetes mellitus Z83.3 and Weight gain R63.5 [place] [address] [place] [id number] [address] [place] [address] Aug, [place] [address] [place] [id number] [address] [place] [address] Jul, [place] [address] [place] [id number] [address] [place] [address] Jun, Onychomycosis B35.1 ; Neurop athy G62.9 and Impaired circulation I99.9 [place] [address] [place] [id number] [address] [place] [address] 09 Mar, 2015 Fissure in skin of foot R23. 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 [facility] [address] [facility] [id number] [address] [place] [address] 18 Feb, 2015 Family history of coronary a rteriosclerosis V17.3 [facility] [address] [facility] [id number] [address] [place] [address] 15 Feb, 2015 Allergic rhinitis due to darien agnieszka 477.0 ; Unspecified breast screening V76.10 ; Anxiety 300.00 and Family history of coronary arteriosclerosis V17.3 [facility] [address] [place] [id number] [address] [place] [id number] Jan, [facility] [address] [place] [id number] [address] [place] [address] Dec, [facility] [address] [address] Dec, Onychomycosis 110.1 and Skin fissures 709.8 [facility] [address] [place] [id number] [address] [place] [address] Sep, [facility] [address] [facility] [id number] [address] [place] [address] Sep, [facility] [address] [place] [id number] [address] [place] [address] Aug, [facility] [address] [place] [id number] [address] [place] [id number] Aug, [facility] [address] [facility] [id number] [address] [place] [address] Jul, [facility] [address] [place] [id number] [address] [place] [address] Jul, [facility] [address] [place] [id number] [address] [place] [id number] Jun, [facility] [address] [place] [id number] [address] [place] [phone] Jun, [facility] [address] [place] [id number] [address] [place] [address] Jun, [facility] [address] [id number] [address] [place] [address], [place] [address] Jun, [facility] [address] [id number] [address] [place] [address], [place] [address] Jun, [facility] [address] [id number] [address] [place] [address], [place] [address] May, [facility] [address] [id number] [address] [place] [address], [place] [address] May, [facility] [address] [id number] [address] [place] [address], [place] [address] May, [facility] [address] [id number] [address] [place] [address], [place] [address] May, [facility] [address] [id number] [address] [place] [address], [place] [address] May, [facility] [address] [id number] [address] [place] [address], [place] [address] May, [facility] [address] [id number] [address] [place] [address], [place] [address] May, [facility] [address] [id number] [address] [place] [address], [place] [address] May, [facility] [address] [id number] [address] [place] [address], [place] [address] Apr, [facility] [address] [id number] [address] [place] [address], [place] [address] Apr, [facility] [address] [id number] [address] [place] [address], [place] [address] Apr, [facility] [address] [id number] [address] [place] [address], [place] [address] Apr, [facility] [address] [id number] [address] [place] [address], [place] [address] Apr, [facility] [address] [id number] [address] [place] [address], [place] [address] Apr, [facility] [address] [id number] [address] [place] [address], [place] [address] Apr, [facility] [address] [id number] [address] [place] [address], [place] [address] Apr, [facility] [address] [id number] [address] [place] [address], [place] [address] Apr, [facility] [address] [id number] [address] [place] [address], [place] [address] Apr, [facility] [address] [id number] [address] [place] [address], [place] [address] Mar, [facility] [address] [id number] [address] [place] [address], [place] [address] Mar, [facility] [address] [id number] [address] [place] [address], [place] [address] Mar, [facility] [address] [id number] [address] [place] [address], [place] [address] Mar, [facility] [address] [id number] [address] [place] [address], [place] [address] Mar, [facility] [address] [id number] [address] [place] [address], [place] [address] Mar, [facility] [address] [id number] [address] [place] [address], [place] [address] Mar, [facility] [address] [id number] [address] [place] [address], [place] [address] Mar, [facility] [address] [id number] [address] [place] [address], [place] [address] Mar, [facility] [address] [id number] [address] [place] [address], [place] [address] Mar, [facility] [address] [id number] [address] [place] [address], [place] [address] Mar, [facility] [address] [id number] [address] [place] [address], [place] [address] Mar, [facility] [address] [id number] [address] [place] [address], [place] [address] 22 Mar, 2014 [facility] [address] [id number] [address] [place] [address], [place] [address] Mar, [facility] [address] [id number] [address] [place] [address], [place] [address] Mar, [facility] [address] [id number] [address] [place] [address], [place] [address] Mar, [facility] [address] [id number] [address] [place] [address], [place] [address] 20 Mar, 2014 [facility] [address] [id number] [address] [place] [address], [place] [address] 16 Mar, 2014 [facility] [address] [id number] [address] [place] [address], [place] [address] 16 Mar, 2014 [facility] [address] [id number] [address] [place] [address], [place] [address] 15 Mar, 2014 [facility] [address] [id number] [address] [place] [address] 14 Mar, 2014 [facility] [address] [id number] [address] [place] [address], [place] [address] 14 Mar, 2014 [facility] [address] [id number] [address] [place] [address] 14 Mar, 2014 [facility] [address] [id number] [address] [place] [address], [place] [address] 14 Mar, 2014 [facility] [address] [id number] [address] [place] [address] 09 Mar, 2014 [facility] [address] [id number] [address] [place] [address], [place] [address] 09 Mar, 2014 [facility] [address] [id number] [address] [place] [address], [place] [address] 09 Mar, 2013 [facility] [address] [id number] [address] [place] [address], [place] [address] 09 Mar, 2013 [facility] [address] [id number] [address] [place] [address], [place] [address] 30 Feb, 2013 [facility] [address] [id number] [address] [place] [address], [place] [address] 30 Sep, 2013 [facility] [address] [id number] [address] [place] [address], [place] [address] 30 Feb, 2013 [facility] [address] [id number] [address] [place] [address], [place] [address] 30 Feb, 2013 [facility] [address] [id number] [address] [place] [address], [place] [address] Feb, 2013 [facility] [address] [id number] [address] [place] [address], [place] [address] Feb, 2013 [facility] [address] [id number] [address] [place] [address], [place] [address] Feb, 2013 [facility] [address] [id number] [address] [place] [address], [place] [address] Feb, 2013 [facility] [address] [id number] [address] [place] [address], [place] [address] Feb, 2013 [facility] [address] [id number] [address] [place] [address], [place] [address] Feb, 2013 [facility] [address] [id number] [address] [place] [address], [place] [address] Feb, 2013 [facility] [address] [id number] [address] [place] [address], [place] [address] Feb, 2013 [facility] [address] [id number] [address] [place] [address], [place] [address] Jan, [facility] [address] [id number] [address] [place] [address], [place] [address] Jan, [facility] [address] [id number] [facility] [place] [address] Jan, [facility] [address] [id number] [facility] [place] [address] Jan, [facility] [address] [id number] [facility] [place] [address] Jan, [facility] [address] [id number] [address] [place] [address], [place] [address] Jan, [facility] [address] [id number] [address] [place] [address], [place] [address] Jan, [facility] [address] [id number] [address] [place] [address], [place] [address] Jan, [facility] [address] [id number] [address] [place] [address], [place] [address] Jan, [facility] [address] [id number] [address] [place] [address], [place] [address] Jan, [facility] [address] [id number] [address] [place] [address], [place] [address] Jan, [facility] [address] [id number] [address] [place] [address], [place] [address] Jan, [facility] [address] [id number] [address] [place] [address], [place] [address] Jan, [facility] [address] [id number] [address] [place] [address], [place] [address] Dec, [facility] [address] [id number] [address] [place] [address], [place] [address] Dec, [facility] [address] [id number] [address] [place] [address], [place] [address] Dec, [facility] [address] [id number] [address] [place] [address], [place] [address] Dec, [facility] [address] [id number] [address] [place] [address], [place] [address] Dec, 2013 [facility] [address] [id number] [facility] [place] [address] Dec, [facility] [address] [id number] [address] [place] [address], [place] [address] Dec, [facility] [address] [id number] [address] [place] [address], [place] [address] Dec, [facility] [address] [id number] [address] [place] [address], [place] [address] Dec, [facility] [address] [id number] [address] [place] [address], [place] [address] Dec, [facility] [address] [id number] [address] [place] [address], [place] [address] Dec, [facility] [address] [id number] [address] [place] [address], [place] [address] Dec, [facility] [address] [id number] [address] [place] [address], [place] [address] Dec, [facility] [address] [id number] [address] [place] [address], [place] [address] Dec, [facility] [address] [id number] [address] [place] [address], [place] [address] Dec, [facility] [address] [id number] [address] [place] [address], [place] [address] Dec, [facility] [address] [id number] [address] [place] [address], [place] [address] Dec, [facility] [address] [id number] [address] [place] [address], [place] [address] Dec, [facility] [address] [id number] [address] [place] [address], [place] [address] Nov, [facility] [address] [id number] [address] [place] [address], [place] [address] Nov, [facility] [address] [id number] [facility] [place] [address] 24 Nov, 2013 [facility] [address] [id number] [facility] [place] [address] Nov, [facility] [address] [id number] [facility] [place] [address] Nov, [facility] [address] [id number] [address] [place] [address], [place] [address] Nov, [facility] [address] [id number] [address] [place] [address], [place] [address] Nov, [facility] [address] [id number] [address] [place] [address], [place] [address] Nov, [facility] [address] [id number] [address] [place] [address], [place] [address] Nov, [facility] [address] [id number] [address] [place] [address], [place] [address] Nov, [facility] [address] [id number] [address] [place] [address], [place] [address] Nov, [facility] [address] [id number] [address] [place] [address], [place] [address] Nov, [facility] [address] [id number] [address] [place] [address], [place] [address] Nov, [facility] [address] [id number] [address] [place] [address], [place] [address] Nov, [facility] [address] [id number] [address] [place] [address], [place] [address] Nov, [facility] [address] [id number] [address] [place] [address], [place] [address] Nov, [facility] [address] [id number] [address] [place] [address], [place] [address] Nov, [facility] [address] [id number] [address] [place] [address], [place] [address] Nov, [facility] [address] [id number] [address] [place] [address], [place] [address] Nov, [facility] [address] [id number] [address] [place] [address], [place] [address] Nov, [facility] [address] [id number] [address] [place] [address], [place] [address] October, [facility] [address] [id number] [address] [place] [address], [place] [address] October, [facility] [address] [id number] [address] [place] [address], [place] [address] October, [facility] [address] [id number] [address] [place] [address], [place] [address] October, [facility] [address] [id number] [address] [place] [address], [place] [address] Sep, [facility] [address] [id number] [address] [place] [address], [place] [address] Sep, [facility] [address] [id number] [address] [place] [address], [place] [address] Sep, [facility] [address] [id number] [address] [place] [address], [place] [address] Sep, [facility] [address] [id number] [address] [place] [address], [place] [address] Sep, [facility] [address] [id number] [address] [place] [address], [place] [address] Sep, [facility] [address] [id number] [address] [place] [address], [place] [address] Sep, [facility] [address] [id number] [address] [place] [address], [place] [address] Sep, [facility] [address] [id number] [address] [place] [address], [place] [address] Sep, [facility] [address] [id number] [address] [place] [address], [place] [address] Aug, [facility] [address] [id number] [address] [place] [address], [place] [address] Aug, [facility] [address] [id number] [address] [place] [address], [place] [address] Aug, [facility] [address] [id number] [address] [place] [address], [place] [address] Aug, [facility] [address] [id number] [address] [place] [address], [place] [address] Aug, [facility] [address] [id number] [address] [place] [address], [place] [address] Aug, [facility] [address] [id number] [address] [place] [address], [place] [address] Aug, [facility] [address] [id number] [address] [place] [address], [place] [address] Aug, [facility] [address] [id number] [address] [place] [address], [place] [address] Jul, [facility] [address] [id number] [address] [place] [address], [place] [address] Jul, [facility] [address] [id number] [address] [place] [address], [place] [address] Jun, [facility] [address] [id number] [address] [place] [address], [place] [address] Jun, [facility] [address] [id number] [address] [place] [address], [place] [address] Jun, [facility] [address] [id number] [address] [place] [address], [place] [address] Jun, [facility] [address] [id number] [address] [place] [address], [place] [address] Jun, [facility] [address] [id number] [address] [place] [address], [place] [address] Jun, [facility] [address] [id number] [address] [place] [address], [place] [address] Jun, [facility] [address] [id number] [address] [place] [address], [place] [address] Jun, [facility] [address] [id number] [address] [place] [address], [place] [address] Jun, [facility] [address] [id number] [address] [place] [address], [place] [address] Jun, [facility] [address] [id number] [address] [place] [address], [place] [address] Jun, [facility] [address] [id number] [address] [place] [address], [place] [address] Jun, [facility] [address] [id number] [address] [place] [address], [place] [address] May, [facility] [address] [id number] [address] [place] [address], [place] [address] May, [facility] [address] [id number] [address] [place] [address], [place] [address] May, [facility] [address] [id number] [address] [place] [address], [place] [address] May, [facility] [address] [id number] [address] [place] [address], [place] [address] May, [facility] [address] [id number] [address] [place] [address], [place] [address] 31 May, 2013 [facility] [address] [id number] [address] [place] [address], [place] [address] 26 May, 2013 [facility] [address] [id number] [address] [place] [address], [place] [address] May, [facility] [address] [id number] [address] [place] [address], [place] [address] May, [facility] [address] [id number] [address] [place] [address] [address] May, [facility] [address] [id number] [address] [place] [address], [place] [address] May, [facility] [address] [id number] [address] [place] [address], [place] [address] May, [facility] [address] [id number] [address] [place] [address], [place] [address] May, [facility] [address] [id number] [address] [place] [address], [place] [address] Apr, [facility] [address] [id number] [address] [place] [address], [place] [address] Apr, [facility] [address] [id number] [address] [place] [address], [place] [address] Mar, [facility] [address] [id number] [address] [place] [address], [place] [address] Mar, [facility] [address] [id number] [address] [place] [address], [place] [address] 24 Feb, 2013 [facility] [address] [id number] [address] [place] [address], [place] [address] Feb, [facility] [address] [id number] [address] [place] [address], [place] [address] Feb, [facility] [address] [id number] [address] [place] [address], [place] [address] Feb, [facility] [address] [id number] [address] [place] [address] Jan, [facility] [address] [id number] [address] [place] [address], [place] [address] Jan, [facility] [address] [id number] [address] [place] [address], [place] [address] Jan, [facility] [address] [id number] [address] [place] [address], [place] [address] Jan, [facility] [address] [id number] [address] [place] [address], [place] [address] Jan, [facility] [address] [id number] [address] [place] [address], [place] [address] Jan, [facility] [address] [id number] [address] [place] [address], [place] [address] Dec, [facility] [address] [id number] [address] [place] [address], [place] [address] Dec, [facility] [address] [id number] [address] [place] [address], [place] [address] Dec, [facility] [address] [id number] [address] [place] [address], [place] [address] Dec, [facility] [address] [id number] [address] [place] [address], [place] [address] Nov, [facility] [address] [id number] [address] [place] [address], [place] [address] October, [facility] [address] [id number] [address] [place] [address], [place] [address] October, [facility] [address] [id number] [address] [place] [address], [place] [address] October, [facility] [address] [id number] [address] [place] [address], [place] [address] Sep, [facility] [address] [id number] [address] [place] [address], [place] [address] Sep, [facility] [address] [id number] [address] [place] [address], [place] [address] Jun, [facility] [address] [id number] [address] [place] [address], [place] [address] Jun, [facility] [address] [id number] [address] [place] [address], [place] [address] Jun, [facility] [address] [id number] [address] [place] [address], [place] [address] Apr, [facility] [address] [id number] [address] [place] [address], [place] [address] Apr, [facility] [address] [id number] [address] [place] [address], [place] [address] Apr, [facility] [address] [id number] [address] [place] [address], [place] [address] Apr, [facility] [address] [id number] [address] [place] [address], [place] [address] Mar, [facility] [address] [id number] [address] [place] [address], [place] [address] Mar, [facility] [address] [id number] [address] [place] [address], [place] [address] Mar, [facility] [address] [id number] [address] [place] [address], [place] [address] Mar, [facility] [address] [id number] [address] [place] [address], [place] [address] Feb, [facility] [address] [id number] [address] [place] [address], [place] [address] Feb, [facility] [address] [id number] [address] [place] [address], [place] [address] Feb, [facility] [address] [id number] [address] [place] [address], [place] [address] Jan, [facility] [address] [id number] [address] [place] [address], [place] [address] Jan, [facility] [address] [id number] [address] [place] [address], [place] [address] Jan, [facility] [address] [id number] [address] [place] [address], [place] [address] Jan, [facility] [address] [id number] [address] [place] [address], [place] [address] Dec, [facility] [address] [id number] [address] [place] [address], [place] [address] Dec, [facility] [address] [id number] [address] [place] [address], [place] [address] Nov, [facility] [address] [id number] [address] [place] [address], [place] [address] Nov, [facility] [address] [id number] [address] [place] [address], [place] [address] October, [facility] [address] [id number] [address] [place] [address], [place] [address] October, [facility] [address] [id number] [address] [place] [address], [place] [address] October, [facility] [address] [id number] [address] [place] [address], [place] [address] Sep, [facility] [address] [id number] [address] [place] [address], [place] [address] Sep, [facility] [address] [id number] [address] [place] [address], [place] [address] Sep, [facility] [address] [id number] [address] [place] [address], [place] [address] Aug, [facility] [address] [id number] [address] [place] [address], [place] [address] Aug, [facility] [address] [id number] [address] [place] [address], [place] [address] Aug, [facility] [address] [id number] [address] [place] [address], [place] [address] Aug, [facility] [address] [id number] [address] [place] [address], [place] [address] Aug, [facility] [address] [id number] [address] [place] [address], [place] [address] Jul, [facility] [address] [id number] [address] [place] [address], [place] [address] 16 Jul, 2011 [facility] [address] [id number] [address] [place] [address], [place] [address] 13 Jul, 2011 [facility] [address] [id number] [address] [place] [address], [place] [address] 09 Jul, 2011 [facility] [address] [id number] [address] [place] [address], [place] [address] 07 Jul, 2011 [facility] [address] [id number] [address] [place] [address], [place] [address] Jul, 2011 [facility] [address] [id number] [address] [place] [address], [place] [address] Jul, [facility] [address] [id number] [address] [place] [address], [place] [address] Jul, [facility] [address] [id number] [address] [place] [address], [place] [address] Jun, [facility] [address] [id number] [address] [place] [address], [place] [address] Jun, [facility] [address] [id number] [address] [place] [address], [place] [address] May, [facility] [address] [id number] [address] [place] [address], [place] [address] May, [facility] [address] [id number] [address] [place] [address], [place] [address] May, [facility] [address] [id number] [address] [place] [address], [place] [address] May, [facility] [address] [id number] [address] [place] [address], [place] [address] Apr, [facility] [address] [id number] [address] [place] [address], [place] [address] Apr, [facility] [address] [id number] [address] [place] [address], [place] [address] Apr, [facility] [address] [id number] [address] [place] [address], [place] [address] 18 Mar, 2011 [facility] [address] [id number] [address] [place] [address], [place] [address] 18 Mar, 2011 [facility] [address] [id number] [address] [place] [address], [place] [address] 18 Mar, 2011 [facility] [address] [id number] [address] [place] [address], [place] [address] 2011 [facility] [address] [id number] [address] [place] [address], [place] [address] Dec, [facility] [address] [id number] [address] [place] [address], [place] [address] October, [facility] [address] [id number] [address] [place] [address], [place] [address] 28 May, 2010 [facility] [address] [id number] [address] [place] [address], [place] [address] 13 May, 2010 [facility] [address] [id number] [address] [place] [address], [place] [address] 13 May, 2010 [facility] [address] [id number] [address] [place] [address], [place] [address] 06 May, 2010 [facility] [address] [id number] [address] [place] [address], [place] [address] Mar, [facility] [address] [id number] [address] [place] [address], [place] [address] Mar, [facility] [address] [id number] [address] [place] [address], [place] [address] 31 May, 2009 [facility] [address] [id number] [address] [place] [address], [place] [address] 30 May, 2009 [facility] [address] [id number] [address] [place] [address], [place] [address] 08 May, 2009 [facility] [address] [id number] [address] [place] [address], [place] [address] 08 May, 2009 [facility] [address] [id number] [address] [place] [address] Apr, [facility] [address] [facility] [id number] [address] [place] [address] Apr, [facility] [address] [facility] [id number] [address] [place] [address] October, IMMUNIZATIONS No Known Immunizations SOCIAL HISTORY [...]
--- OUTSIDE RECORDS SUMMARY | 2020-01-13 11:40 | XMS REPORT ---
Author Author Monique RAHMAN [facility] Address [address] [place] [address] Care Team Providers Care Homoeopath Name Role Phone RASHEED RAHMAN Unavailable PROBLEMS Type Condition ICD9-CM Code RLB69-HL Code Onset Dates Condition S tatus SNOMED Code Problem History of illicit drug use Z87.898 Ac tive 735226661 Problem Snoring R06.83 Active 52368904 Problem Impaired circulation I99.9 Active 11798610 Problem MRSA (methicillin resistant staph aureus) culture positive Z22.322 Active 949015174 Problem Panic disorder without agoraphobia F41.0 Active 74709306 Problem Dysthymic disorder F34.1 Active 7 1829107 Problem Mood disorder F39 Active 328116 05 Problem Arthritis M19.90 Active 4073810 Problem Mild chronic obstructive pulmonary disease J44.9 Active 229346274 Problem Mild persistent asthma without complication J45.30 Active 667361807 Problem Essential hypertension I10 Active 12310061 Problem On home oxygen therapy Z99.81 Active 168122283727 Problem 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 Active 961891 02 Problem Neuropathy G62.9 Active 745062027 Problem 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 Active 973668719 Problem Major depressive disorder, recurrent episode, moderate F33.1 Active 276565965 Problem Psychotic disorder F29 Active 6 6416986 Problem Hypertension, benign I10 Active 85264197 Problem Onychomycosis B35.1 Active 834502 008 Problem Body mass index (BMI) 40.0-44.9, adult Z68.41 Active 996375494 Problem Varicose veins of both lower extremities I83.93 Active 17052980 Problem Sciatica, left side M54.32 Active 90239085 Problem Agoraphobia F40.00 Active 52455839 Problem Fatigue R53.83 Active 34991803 Problem Major depressive disorder in full remission F32.5 Active 36272300 Problem Slow transit constipation K59.01 Acti ve 64199640 Problem Chronic obstructive pulmonary disease, unspecified COPD ty pe J44.9 Active 62413926 Problem Unspecified psychosis not du e to a substance or known physiological condition F29 Active 027043031 ALLERGIES No Information ENCOUNTERS Encounter Location Date Diagnosis [place] [address] [address] [place] [id number] [place] [phone] Nov, [place] [address] [facility] [id number] [address] [place] [phone] October, [place] [address] [place] [id number] [place] [address] October, Abdominal pain, right upper quadrant R10.11 [place] [address] [place] [id number] [place] [phone] Sep, [id number] [place] [phone] Sep, [place] [address] [place] [id number] [place] [id number] 15 Sep, 2019 Abdominal pain, right upper quadrant R10.11 [place] [address] [place] [id number] [place] [id number] 06 Sep, 2019 Panic disorder without agora phobia F41.0 ; Major depressive disorder, recurrent episode, moderate F33.1 and Morbid obesity E66.01 [place] [address] [place] [id number] [place] [phone] Aug, Bronchitis J40 [place] [address] [place] [id number] [place] [phone] Aug, Sciatica, left side M54.32 a nd Morbid obesity E66.01 [place] [address] [place] [id number] [place] [phone] Aug, [place] [address] [place] [id number] [address] [place] [phone] Aug, Sciatica, left side M54.32 [place] [address] [address] Aug, Neuropathy G62.9 ; Onychomyc osis B35.1 ; Callus of foot L84 and Skin fissures R23.4 [place] [address] [address] Jul, [place] [address] [address] Jul, Morbid obesity E66.01 [place] [address] [address] Jul, Unspecified psychosis not du e to a substance or known physiological condition F29 ; Chronic obstructive pulmonary disease, unspecified COPD type J44.9 and Body mass index (BMI) 40.0-44.9, adult Z68.41 [place] [address] [address] Jun, [place] [address] [address] Jun, Morbid obesity E66.01 [place] [address] [address] May, Morbid obesity E66.01 [place] [address] [address] May, Encounter for immunization Z 23 [place] [address] [address] May, Major depressive disorder, r ecurrent episode, moderate F33.1 ; Panic disorder without agoraphobia F41.0 and Morbid obesity E66.01 [place] [address] [address] May, Major depressive disorder in full remission F32.5 and Panic disorder without agoraphobia F41.0 [place] [address] [address] Apr, Morbid obesity E66.01 [place] [address] [place] [id number] [address] [place] [address] Apr, Slow transit constipation K5 9.01 and Cellulitis of left lower extremity L03.116 [place] [address] [place] [address] Apr, Morbid obesity E66.01 [place] [address] [address] Apr, [place] [address] [address] Apr, Major depressive disorder, r ecurrent episode, moderate F33.1 and Panic disorder without agoraphobia F41.0 [place] [address] [address] Mar, Viral upper respiratory trac t infection J06.9 [place] [address] [address] Mar, Bronchitis J40 and Encounter for immunization Z23 [address] [address] Mar, Morbid obesity E66.01 [place] [address] [address] Feb, Major depressive disorder, r ecurrent episode, moderate F33.1 and Panic disorder without agoraphobia F41.0 [place] [address] [place] [address] Feb, Morbid obesity E66.01 [place] [address] [address] 06 Feb, 2019 Onychomycosis B35.1 ; 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 [id number] [address] [place] [phone] Jan, Major depressive disorder in full remission F32.5 and Panic disorder without agoraphobia F41.0 [facility] [address] [facility] [id number] [address] [place] [id number] Jan, Pneumonia of both lower lobe s due to infectious organism J18.1 and Morbid obesity E66.01 [facility] [address] [facility] [id number] [address] [place] [phone] Jan, [facility] [address] [facility] [id number] [address] [place] [phone] Jan, Major depressive disorder in full remission F32.5 and Panic disorder without agoraphobia F41.0 [facility] [address] [facility] [id number] [address] [place] [phone] Jan, [facility] [address] [facility] [id number] [address] [place] [id number] Jan, Major depressive disorder, r ecurrent episode, moderate F33.1 ; Panic disorder without agoraphobia F41.0 and Morbid obesity E66.01 [place] [id number] [facility] [id number] [address] [place] [phone] Dec, Bilious vomiting with nausea R11.14 ; Coughing R05 and Choking, subsequent encounter T17.308D [facility] [address] [facility] [id number] [address] [place] [address] Dec, Morbid obesity E66.01 [facility] [address] [facility] [id number] [address] [place] [address] Dec, Major depressive disorder, r ecurrent episode, moderate F33.1 and Panic disorder without agoraphobia F41.0 [place] [id number] [address] Dec, [place] [address] [address] Dec, Major depressive disorder, r ecurrent episode, moderate F33.1 [place] [address] [address] Nov, Major depressive disorder, r ecurrent episode, moderate F33.1 ; Panic disorder without agoraphobia F41.0 and Morbid obesity E66.01 [place] [address] [address] Nov, Morbid obesity E66.01 [place] [address] [address] Nov, Major depressive disorder, r ecurrent episode, moderate F33.1 and Panic disorder without agoraphobia F41.0 [facility] [place] [address] [address] Nov, Allergic reaction, initial e ncounter T78.40XA and Morbid obesity E66.[address] [address] Nov, [place] [address] [address] 13 Nov, 2018 Morbid obesity E66.01 ; Swal lowing problem R13.10 and Hypertension, benign I10 [facility]ALK [place] [address] [address] 07 Nov, 2018 Morbid obesity E66.01 ; COPD exacerbation J44.1 and Non- recurrent acute suppurative otitis media of left ear without spontaneous rupture of tympanic membrane H66.002 [place] [address] [address] 07 Nov, 2018 Onychomycosis B35.1 ; Neurop athy G62.9 and Fissure in skin of foot R23.4 [place] [address] [facility] [id number] [address] [place] [address] October, Major depressive disorder, r ecurrent episode, moderate F33.1 ; Panic disorder without agoraphobia F41.0 and Morbid obesity E66.01 [facility] [address] [id number] [address] [place] [address] October, Viral upper respiratory trac t infection J06.9 [facility] [address] [facility] [id number] [address] [place] [phone] October, [facility] [address] [facility] [id number] [address] [place] [id number] October, Major depressive disorder, r ecurrent episode, moderate F33.1 and Panic disorder without agoraphobia F41.0 [facility] [address] [facility] [id number] [address] [place] [phone] October, [facility] [address] [facility] [id number] [address] [place] [phone] October, [facility] [address] [facility] [id number] [address] [place] [phone] October, [facility] [address] [facility] [id number] [address] [place] [phone] October, [facility] [address] [facility] [id number] [address] [place] [phone] October, [facility] [address] [facility] [id number] [address] [place] [phone] October, [facility] [address] [facility] [id number] [address] [place] [address] October, Major depressive disorder, r ecurrent episode, moderate F33.1 and Panic disorder without agoraphobia F41.0 [facility] [address] [facility] [id number] [address] [place] [address] Sep, Morbid obesity E66.01 and Vane mbar neuritis M54.16 [facility] [address] [place] [id number] [address] [place] [address] Sep, Panic disorder without agora phobia F41.0 and Major depressive disorder, recurrent episode, moderate F33.1 [facility] WALK IN [facility] [address] [place] [id number] [address] [place] [address] Sep, Gastroenteritis K52.9 ; Low back pain M54.5 ; Other chronic pain G89.29 and Morbid obesity E66.01 [facility] [address] [address] Sep, Major depressive disorder, r ecurrent episode, moderate F33.1 ; Panic disorder without agoraphobia F41.0 and 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 [place] [address] [address] Sep, Panic disorder without agora phobia F41.0 [place] [address] [address] Sep, Panic disorder without agora phobia F41.0 [place] [address] [address] Aug, Panic disorder without agora phobia F41.0 ; Major depressive disorder, recurrent episode, moderate F33.1 ; 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 ; Psychotic disorder F29 ; Tardive dyskinesia G24.01 and Morbid obesity E66.01 [facility] [address] [place] [id number] [address] [place] [address] Aug, Dysthymic disorder F34.1 and Psychotic disorder F29 [place] [address] [address] Aug, Encounter for Medicare annua l wellness exam Z00.00 ; Morbid obesity E66.01 and 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 [place] [address] [place] [id number] [address] [place] [address] Aug, Dysthymic disorder F34.1 and Psychotic disorder F29 [place] [address] [place] [address] Aug, Neuropathy G62.9 ; Onychomyc osis B35.1 and Xerosis of skin L85.3 [place] [address] [address] Jul, [place] [address] [address] Jul, Mood disorder F39 ; Wheezing R06.2 ; Choking, initial encounter T17.308A and Coughing R05 [place] [address] [address] Jul, Low back pain M54.5 [facility] WALK IN [facility] [address] [address] Jun, Flu-like symptoms R68.89 ; B VA 45.0-49.9, adult Z68.42 ; COPD exacerbation J44.1 and Acute bronchitis J20.9 [place] [address] [address] Jun, [place] [address] [address] May, [place] [address] [address] May, Onychomycosis B35.1 and 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 [place] [address] [place] [id number] [address] [place] [address] May, Low back pain M54.5 and Abdoulaye a leg R60.0 [place] [address] [address] May, BMI 45.0-49.9, adult Z68.42 ; Well woman exam with routine gynecological exam Z01.419 and Breast cancer screening Z12.31 [place] [address] [address] 19 Apr, 2018 Arthritis M19.90 [place] [address] [address] 16 Apr, 2018 Arthritis M19.90 and Otalgia of both ears H92.03 [place] [address] [address] Feb, [place] [address] [address] Feb, Low back pain M54.5 ; Other chronic pain G89.29 ; Exertional asthma J45.990 and Encounter for immunization Z23 [place] [address] [address] Feb, Skin fissures R23.4 ; Neurop athy G62.9 and Onychomycosis B35.1 [place] [address] [address] 05 Feb, 2018 Dysthymic disorder F34.1 [place] [address] [address] Feb, [place] [address] [address] Jan, [place] [address] [address] Jan, Abrasion of right elbow, ini tial encounter S50.311A ; Abrasion, right knee, initial encounter S80.211A and Sprain of other ligament of right ankle, initial encounter S93.491A [place] [address] [address] Jan, [facility] IN [facility] [address] [address] Jan, Injury of left ankle, initia l encounter S99.912A ; Fall down stairs, initial encounter W10.8XXA and BMI 45.0-49.9, adult Z68.42 [facility] [address] [place] [address] Jan, COPD exacerbation J44.1 [facility] [address] [place] [id number] [place] [address] 13 Jan, 2018 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 [place] [address] [address] Jan, Bronchitis J40 and Acute sup purative otitis media of left ear without spontaneous rupture of tympanic membrane, recurrence not specified H66.002 [place] [address] [address] Jan, [place] [address] [address] 03 Jan, 2018 Bronchitis J40 and BMI 40.0- 44.9, adult Z68.41 [place] [address] [address] Jan, [place] [address] [address] Dec, Gastric pain R10.9 [place] [address] [place] [id number] [place] [address] Dec, [place] [address] [address] Dec, History of illicit drug use Z87.898 ; Neuropathy G62.9 ; COPD (chronic obstructive pulmonary disease) with chronic bronchitis J44.9 and Acute pain of right knee M25.561 [place] [address] [place] [id number] [place] [address] Nov, [place] [address] [place] [id number] [place] [address] Nov, Onychomycosis B35.1 and Cont usion of left foot, subsequent encounter S90.32XD [place] [address] [address] Nov, COPD exacerbation J44.1 [place] [address] [address] Sep, [place] [address] [address] Sep, Dysthymic disorder F34.1 ; T obacco abuse Z72.0 ; Pain in right knee M25.561 ; Pain in left knee M25.562 ; Other chronic pain G89.29 and BMI 40.0- 44.9, adult Z68.41 [place] [address] [address] Aug, Major depressive disorder, r ecurrent episode, moderate F33.1 and 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 [place] [address] [address] Aug, Dysthymic disorder F34.1 ; N on-pressure chronic ulcer of left thigh, unspecified ulcer stage L97.129 ; Tobacco abuse Z72.0 ; Mild chronic obstructive pulmonary disease J44.9 and Forgetfulness R68.89 [place] [address] [address] 09 Aug, 2017 Onychomycosis B35.1 ; Fissur e in skin of foot R23.4 and Foot callus L84 [facility] [address] [place] [address] Jul, Right medial knee pain M25.5 61 ; Upper respiratory tract infection, unspecified type J06.9 and BMI 40.0-44.9, adult Z68.41 [facility] [address] [place] [address] 08 Jul, 2017 Nausea and vomiting, intract ability of vomiting not specified, unspecified vomiting type R11.2 ; Left ear pain H92.02 and Gastric pain R10.9 [facility] [address] [facility] [id number] [address] [place] [address] Apr, Encounter for immunization Z 23 [facility] [address] 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 [id number] [address] [place] [address] Jan, Onychomycosis B35.1 and Neur opathy G62.9 [facility] [address] [facility] [id number] [address] [place] [phone] Dec, [facility] [address] [facility] [id number] [address] [place] [address] Dec, [facility] [address] [place] [id number] [place] [address] Nov, [facility] [address] [facility] [id number] [address] [place] [phone] Aug, [facility] [address] [facility] [id number] [address] [place] [address] Aug, [facility] [address] [facility] [id number] [address] [place] [address] Jul, [facility] [address] [place] [id number] [place] [address] Jul, [facility] [address] [facility] [id number] [address] [place] [address] Jul, Decubitus ulcer of left thig h, stage 2 L89.892 [facility] [address] [place] [id number] [place] [address] Jul, Decubitus ulcer of left thig h, stage 2 L89.892 [facility] [address] [place] [id number] [place] [address] 17 Jul, 2016 [facility] [address] [id number] [address] [place] [address] 15 Jul, 2016 Decubitus ulcer of left thig h, stage 2 L89.892 [facility] [address] [id number] [address] [place] [address] 14 Jul, 2016 [facility] [address] [facility] [id number] [address] [place] [address] 13 Jul, 2016 Cellulitis of other specifie d site L03.818 ; Illicit drug use F19.90 and Decubitus ulcer of left thigh, stage 2 L89.892 [facility] [address] [facility] [id number] [address] [place] [address] 08 Jul, 2016 [facility] [address] [facility] [id number] [address] [place] [address] 06 Jul, 2016 Cellulitis of right breast N 61.0 [facility] [address] [facility] [id number] [address] [place] [id number] Jun, [facility] [address] [facility] [id number] [address] [place] [phone] Jun, [facility] [address] [facility] [id number] [address] [place] [address] Jun, Wheezing R06.2 and Arthralgi a, unspecified joint M25.50 [facility] [address] [facility] [id number] [address] [place] [phone] May, [facility] [address] [facility] [id number] [address] [place] [id number] May, [facility] [address] [facility] [id number] [address] [place] [address] May, [facility] [address] [facility] [id number] [address] [place] [address] May, Shortness of breath R06.02 [facility] [address] [id number] [address] [place] [phone] 02 May, 2016 Onychomycosis B35.1 and Fiss ure in skin of foot R23.4 [facility] [address] [id number] [address] [place] [phone] 28 Apr, 2016 [facility] [address] [facility] [id number] [address] [place] [phone] 18 Apr, 2016 Dizziness R42 [facility] [address] [facility] [id number] [address] [place] [id number] 14 Apr, 2016 Shortness of breath R06.02 ; Essential hypertension I10 ; Dizziness R42 and On home oxygen therapy Z99.81 [facility] [address] [facility] [id number] [address] [place] [phone] 10 Apr, 2016 [facility] [address] [facility] [id number] [address] [place] [phone] 08 Apr, 2016 [facility] [address] [facility] [id number] [address] [place] [phone] Apr, [facility] [address] [id number] [address] [place] [phone] Apr, [facility] [address] [facility] [id number] [address] [place] [phone] Apr, [facility] [address] [facility] [id number] [address] [place] [phone] Apr, [facility] [address] [facility] [id number] [address] [place] [phone] Apr, [facility] [address] [id number] [address] [place] [address] Mar, Mild chronic obstructive pul monary disease J44.9 [facility] [address] [id number] [address] [place] [phone] Mar, [facility] [address] [facility] [id number] [address] [place] [address] Mar, Epigastric pain R10.13 ; Low back pain M54.5 ; Other chronic pain G89.29 and Breast cancer screening Z12.39 [facility] [address] [place] [id number] [address] [place] [address] Mar, [place] [address] [facility] [id number] [address] [place] [address] Mar, [place] [address] [place] [id number] [address] [place] [address] Feb, [place] [address] [facility] [id number] [address] [place] [address] Feb, [place] [address] [place] [id number] [place] [address] Feb, Fissure in skin of foot R23. 4 and Onychomycosis B35.1 [place] [address] [place] [id number] [address] [place] [address] Jan, Agoraphobia F40.00 [place] [address] [place] [id number] [address] [place] [address] Dec, Agoraphobia F40.00 [place] [address] [place] [id number] [place] [address] Dec, Mild persistent asthma witho ut complication J45.30 ; Dysthymic disorder F34.1 and Upper respiratory tract infection, unspecified type J06.9 [place] [address] [place] [id number] [address] [place] [address] Nov, Agoraphobia F40.00 [place] [address] [facility] [id number] [address] [place] [address] October, Agoraphobia F40.00 [place] [address] [place] [id number] [address] [place] [phone] Sep, Panic disorder without agora phobia F41.0 ; Agoraphobia F40.00 and Dysthymic disorder F34.1 [place] [address] [facility] [id number] [address] [place] [address] Sep, Panic attacks F41.0 [place] [address] [facility] [id number] [address] [place] [address] Sep, [place] [address] [facility] [id number] [address] [place] [address] Sep, Panic disorder without agora phobia F41.0 ; Varicose veins of both lower extremities I83.93 and Fatigue R53.83 [place] [address] [facility] [id number] [address] [place] [id number] 14 Sep, 2015 Fatigue R53.83 [place] [address] [facility] [id number] [address] [place] [address] Sep, [place] [address] [place] [id number] [address] [place] [phone] Aug, [place] [address] [place] [id number] [address] [place] [address] Aug, [place] [address] [place] [id number] [address] [place] [address] Aug, Type 2 diabetes mellitus wit h diabetic neuropathic arthropathy E11.610 [place] [address] [facility] [id number] [address] [place] [address] Aug, Panic disorder without agora phobia F41.0 ; Agoraphobia F40.00 and Dysthymic disorder F34.1 [place] [address] [place] [id number] [address] [place] [address] Aug, Shortness of breath R06.02 ; Panic attacks F41.0 ; COPD (chronic obstructive pulmonary disease) J44.9 ; Tobacco abuse Z72.0 ; Family history of diabetes mellitus Z83.3 and Weight gain R63.5 [place] [address] [place] [id number] [address] [place] [phone] Aug, [place] [address] [place] [id number] [address] [place] [address] Jul, [facility] [address] [facility] [id number] [address] [place] [address] Jun, Onychomycosis B35.1 ; Neurop athy G62.9 and Impaired circulation I99.9 [facility] [address] [facility] [id number] [address] [place] [address] 09 Mar, 2015 Fissure in skin of foot R23. 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 [id number] [address] [place] [phone] 18 Feb, 2015 Family history of coronary a rteriosclerosis V17.3 [facility] [address] [facility] [id number] [address] [place] [phone] 15 Feb, 2015 Allergic rhinitis due to darien agnieszka 477.0 ; Unspecified breast screening V76.10 ; Anxiety 300.00 and Family history of coronary arteriosclerosis V17.3 [facility] [address] [facility] [id number] [address] [place] [address] Jan, [facility] [address] [facility] [id number] [address] [place] [phone] Dec, [facility] [address] [facility] [id number] [address] [place] [phone] Dec, Onychomycosis 110.1 and Skin fissures 709.8 [facility] [address] [facility] [id number] [address] [place] [phone] Sep, [facility] [address] [facility] [id number] [address] [place] [phone] Sep, [facility] [address] [facility] [id number] [address] [place] [phone] Aug, [facility] [address] [facility] [id number] [address] [place] [id number] Aug, [facility] [address] [id number] [address] [place] [address], [place] [address] Jul, [facility] [address] [id number] [address] [place] [address], [place] [address] Jul, [facility] [address] [id number] [address] [place] [address], [place] [address] Jun, [facility] [address] [id number] [address] [place] [address], [place] [address] Jun, [facility] [address] [id number] [address] [place] [address], [place] [address] Jun, [facility] [address] [id number] [address] [place] [address], [place] [address] Jun, [facility] [address] [id number] [address] [place] [address], [place] [address] Jun, [facility] [address] [id number] [address] [place] [address], [place] [address] May, [facility] [address] [id number] [address] [place] [address], [place] [address] May, [facility] [address] [id number] [address] [place] [address], [place] [address] May, [facility] [address] [id number] [address] [place] [address], [place] [address] May, [facility] [address] [id number] [address] [place] [address], [place] [address] May, [facility] [address] [id number] [address] [place] [address], [place] [address] May, [facility] [address] [id number] [address] [place] [address], [place] [address] May, [facility] [address] [id number] [address] [place] [address], [place] [address] May, [facility] [address] [id number] [address] [place] [address], [place] [address] Apr, [facility] [address] [id number] [address] [place] [address], [place] [address] Apr, [facility] [address] [id number] [address] [place] [address], [place] [address] Apr, [facility] [address] [id number] [address] [place] [address], [place] [address] Apr, [facility] [address] [id number] [address] [place] [address], [place] [address] Apr, [facility] [address] [id number] [address] [place] [address], [place] [address] Apr, [facility] [address] [id number] [address] [place] [address], [place] [address] Apr, [facility] [address] [id number] [address] [place] [address], [place] [address] Apr, [facility] [address] [id number] [address] [place] [address], [place] [address] Apr, [facility] [address] [id number] [address] [place] [address], [place] [address] Apr, [facility] [address] [id number] [address] [place] [address], [place] [address] Mar, [facility] [address] [id number] [address] [place] [address], [place] [address] Mar, [facility] [address] [id number] [address] [place] [address], [place] [address] Mar, [facility] [address] [id number] [address] [place] [address], [place] [address] Mar, [facility] [address] [id number] [address] [place] [address], [place] [address] Mar, [facility] [address] [id number] [address] [place] [address], [place] [address] Mar, [facility] [address] [id number] [address] [place] [address], [place] [address] Mar, [facility] [address] [id number] [address] [place] [address], [place] [address] Mar, [facility] [address] [id number] [address] [place] [address], [place] [address] Mar, [facility] [address] [id number] [address] [place] [address], [place] [address] Mar, [facility] [address] [id number] [address] [place] [address], [place] [address] Mar, [facility] [address] [id number] [address] [place] [address], [place] [address] Mar, [facility] [address] [id number] [address] [place] [address], [place] [address] Mar, [facility] [address] [id number] [address] [place] [address], [place] [address] Mar, [facility] [address] [id number] [address] [place] [address], [place] [address] Mar, [facility] [address] [id number] [address] [place] [address], [place] [address] Mar, [facility] [address] [id number] [address] [place] [address], [place] [address] 20 Mar, 2014 [facility] [address] [id number] [address] [place] [address], [place] [address] 16 Mar, 2014 [facility] [address] [id number] [address] [place] [id number] 16 Mar, 2014 [facility] [address] [id number] [address] [place] [address], [place] [address] 15 Mar, 2014 [facility] [address] [id number] [address] [place] [address], [place] [address] 14 Mar, 2014 [facility] [address] [id number] [address] [place] [address], [place] [address] 14 Mar, 2014 [facility] [address] [id number] [address] [place] [address], [place] [address] 14 Mar, 2013 [facility] [address] [id number] [address] [place] [address], [place] [address] 14 Mar, 2013 [facility] [address] [id number] [address] [place] [address], [place] [address] 09 Mar, 2013 [facility] [address] [id number] [address] [place] [address], [place] [address] 09 Mar, 2013 [facility] [address] [id number] [address] [place] [address], [place] [address] 09 Mar, 2013 [facility] [address] [id number] [address] [place] [address], [place] [address] Mar, 2013 [facility] [address] [id number] [address] [place] [address], [place] [address] 30 Sep, 2013 [facility] [address] [id number] [address] [place] [address], [place] [address] 30 Sep, 2013 [facility] [address] [id number] [address] [place] [address], [place] [address] 30 Sep, 2013 [facility] [address] [id number] [address] [place] [address], [place] [address] 30 Sep, 2013 [facility] [address] [id number] [address] [place] [address], [place] [address] 26 Sep, 2013 [facility] [address] [id number] [address] [place] [address], [place] [address] 26 Sep, 2013 [facility] [address] [id number] [address] [place] [address], [place] [address] 09 Sep, 2013 [facility] [address] [id number] [address] [place] [address], [place] [address] 09 Sep, 2013 [facility] [address] [id number] [address] [place] [address], [place] [address] 03 Sep, 2013 [facility] [address] [id number] [address] [place] [address], [place] [address] Feb, [facility] [address] [id number] [facility] [address] Feb, [facility] [address] [id number] [address] [place] [address], [place] [address] Feb, [facility] [address] [id number] [address] [place] [address], [place] [address] Jan, [facility] [address] [id number] [address] [place] [address], [place] [address] Jan, [facility] [address] [id number] [address] [place] [address], [place] [address] Jan, [facility] [address] [id number] [address] [place] [address], [place] [address] Jan, [facility] [address] [id number] [address] [place] [address], [place] [address] Jan, [facility] [address] [id number] [address] [place] [address], [place] [address] Jan, [facility] [address] [id number] [address] [place] [address], [place] [address] Jan, [facility] [address] [id number] [address] [place] [address], [place] [address] Jan, [facility] [address] [id number] [address] [place] [address], [place] [address] Jan, [facility] [address] [id number] [address] [place] [address], [place] [address] Jan, [facility] [address] [id number] [address] [place] [address], [place] [address] Jan, [facility] [address] [id number] [address] [place] [address], [place] [address] Jan, [facility] [address] [id number] [address] [place] [address], [place] [address] Jan, [facility] [address] [id number] [address] [place] [address], [place] [address] Dec, 2013 [facility] [address] [id number] [facility] [address] Dec, 2013 [facility] [address] [id number] [address] [place] [address], [place] [address] Dec, [facility] [address] [id number] [address] [place] [address], [place] [address] Dec, 2013 [facility] [address] [id number] [address] [place] [address], [place] [address] Dec, 2013 [facility] [address] [id number] [address] [place] [address], [place] [address] Dec, [facility] [address] [id number] [address] [place] [address], [place] [address] Dec, 2013 [facility] [address] [id number] [address] [place] [address], [place] [address] Dec, 2013 [facility] [address] [id number] [address] [place] [address], [place] [address] Dec, [facility] [address] [id number] [address] [place] [address], [place] [address] Dec, 2013 [facility] [address] [id number] [address] [place] [address], [place] [address] Dec, 2013 [facility] [address] [id number] [address] [place] [address], [place] [address] Dec, 2013 [facility] [address] [id number] [address] [place] [address], [place] [address] Dec, 2013 [facility] [address] [id number] [address] [place] [address], [place] [address] Dec, 2013 [facility] [address] [id number] [address] [place] [address], [place] [address] Dec, 2013 [facility] [address] [id number] [address] [place] [address], [place] [address] Dec, 2013 [facility] [address] [id number] [facility] [address] 08 Dec, 2013 [facility] [address] [id number] [facility] [address] Dec, [facility] [address] [id number] [facility] [address] Nov, [facility] [address] [id number] [facility] [address] Nov, [facility] [address] [id number] [facility] [address] Nov, [facility] [address] [id number] [address] [place] [address], [place] [address] Nov, [facility] [address] [id number] [address] [place] [address], [place] [address] Nov, [facility] [address] [id number] [address] [place] [address], [place] [address] Nov, [facility] [address] [id number] [address] [place] [address], [place] [address] Nov, [facility] [address] [id number] [address] [place] [address], [place] [address] Nov, [facility] [address] [id number] [address] [place] [address], [place] [address] Nov, [facility] [address] [id number] [address] [place] [address], [place] [address] Nov, [facility] [address] [id number] [address] [place] [address], [place] [address] Nov, [facility] [address] [id number] [address] [place] [address], [place] [address] Nov, [facility] [address] [id number] [address] [place] [address], [place] [address] Nov, [facility] [address] [id number] [address] [place] [address], [place] [address] Nov, [facility] [address] [id number] [facility] [address] Nov, [facility] [address] [id number] [address] [place] [address], [place] [address] Nov, [facility] [address] [id number] [address] [place] [address], [place] [address] Nov, [facility] [address] [id number] [address] [place] [address], [place] [address] Nov, [facility] [address] [id number] [address] [place] [address], [place] [address] Nov, [facility] [address] [id number] [address] [place] [address], [place] [address] Nov, [facility] [address] [id number] [address] [place] [address], [place] [address] October, [facility] [address] [id number] [address] [place] [address], [place] [address] October, [facility] [address] [id number] [address] [place] [address], [place] [address] October, [facility] [address] [id number] [address] [place] [address], [place] [address] October, [facility] [address] [id number] [address] [place] [address], [place] [address] Sep, [facility] [address] [id number] [address] [place] [address], [place] [address] Sep, [facility] [address] [id number] [address] [place] [address], [place] [address] Sep, [facility] [address] [id number] [address] [place] [address], [place] [address] Sep, [facility] [address] [id number] [address] [place] [address], [place] [address] Sep, [facility] [address] [id number] [facility] [address] Sep, [facility] [address] [id number] [address] [place] [address], [place] [address] Sep, [facility] [address] [id number] [address] [place] [address], [place] [address] Sep, [facility] [address] [id number] [address] [place] [address], [place] [address] Sep, [facility] [address] [id number] [address] [place] [address], [place] [address] Aug, [facility] [address] [id number] [address] [place] [address], [place] [address] Aug, [facility] [address] [id number] [address] [place] [address], [place] [address] Aug, [facility] [address] [id number] [address] [place] [address], [place] [address] Aug, [facility] [address] [id number] [address] [place] [address], [place] [address] Aug, [facility] [address] [id number] [address] [place] [address], [place] [address] Aug, [facility] [address] [id number] [address] [place] [address], [place] [address] Aug, [facility] [address] [id number] [address] [place] [address], [place] [address] Aug, [facility] [address] [id number] [address] [place] [address], [place] [address] Jul, [facility] [address] [id number] [address] [place] [address], [place] [address] Jul, [facility] [address] [id number] [address] [place] [address], [place] [address] Jun, [facility] [address] [id number] [address] [place] [address], [place] [address] Jun, [facility] [address] [id number] [address] [place] [address], [place] [address] Jun, [facility] [address] [id number] [address] [place] [address], [place] [address] Jun, [facility] [address] [id number] [address] [place] [address], [place] [address] Jun, [facility] [address] [id number] [address] [place] [address], [place] [address] Jun, [facility] [address] [id number] [address] [place] [address], [place] [address] Jun, [facility] [address] [id number] [address] [place] [address], [place] [address] Jun, [facility] [address] [id number] [address] [place] [address], [place] [address] Jun, [facility] [address] [id number] [address] [place] [address], [place] [address] Jun, [facility] [address] [id number] [address] [place] [address], [place] [address] Jun, [facility] [address] [id number] [address] [place] [address], [place] [address] Jun, [facility] [address] [id number] [address] [place] [address], [place] [address] May, [facility] [address] [id number] [address] [place] [address], [place] [address] May, [facility] [address] [id number] [address] [place] [address], [place] [address] May, [facility] [address] [id number] [address] [place] [address], [place] [address] May, [facility] [address] [id number] [address] [place] [address], [place] [address] May, [facility] [address] [id number] [address] [place] [address] May, [facility] [address] [id number] [address] [place] [address], [place] [address] May, [facility] [address] [id number] [address] [place] [address], [place] [address] May, [facility] [address] [id number] [address] [place] [address], [place] [address] May, [facility] [address] [id number] [address] [place] [address], [place] [address] May, [facility] [address] [id number] [address] [place] [address], [place] [address] May, [facility] [address] [id number] [address] [place] [address], [place] [address] May, [facility] [address] [id number] [address] [place] [address], [place] [address] May, [facility] [address] [id number] [address] [place] [address], [place] [address] Apr, [facility] [address] [address] [id number] [address] [place] [address], [place] [address] Apr, [facility] [address] [id number] [address] [place] [address], [place] [address] Mar, [facility] [address] [id number] [address] [place] [phone] Mar, [facility] [address] [id number] [address] [place] [id number] 24 Feb, 2013 [facility] [address] [id number] [address] [place] [address], [place] [address] 23 Feb, 2013 [facility] [address] [id number] [address] [place] [address], [place] [address] 05 Feb, 2013 [facility] [address] [id number] [address] [place] [address], [place] [address] 04 Feb, 2013 [facility] [address] [id number] [address] [place] [address], [place] [address] Jan, [facility] [address] [id number] [address] [place] [address], [place] [address] Jan, [facility] [address] [id number] [address] [place] [address], [place] [address] Jan, [facility] [address] [id number] [address] [place] [address], [place] [address] Jan, [facility] [address] [id number] [address] [place] [address], [place] [address] Jan, [facility] [address] [id number] [address] [place] [address], [place] [address] Jan, [facility] [address] [id number] [address] [place] [address], [place] [address] Dec, [facility] [address] [id number] [address] [place] [address], [place] [address] Dec, [facility] [address] [id number] [address] [place] [address], [place] [address] Dec, [facility] [address] [id number] [address] [place] [address], [place] [address] Dec, [facility] [address] [id number] [address] [place] [address], [place] [address] Nov, [facility] [address] [id number] [address] [place] [address], [place] [address] October, [facility] [address] [id number] [address] [place] [address], [place] [address] October, [facility] [address] [id number] [address] [place] [address], [place] [address] October, [facility] [address] [id number] [address] [place] [address], [place] [address] Sep, [facility] [address] [id number] [address] [place] [address], [place] [address] Sep, [facility] [address] [id number] [address] [place] [address], [place] [address] Jun, [facility] [address] [id number] [address] [place] [address], [place] [address] Jun, [facility] [address] [id number] [address] [place] [address], [place] [address] Jun, [facility] [address] [id number] [address] [place] [address], [place] [address] Apr, [facility] [address] [id number] [address] [place] [address], [place] [address] Apr, [facility] [address] [id number] [address] [place] [address], [place] [address] Apr, [facility] [address] [id number] [address] [place] [address], [place] [address] Apr, [facility] [address] [id number] [address] [place] [address], [place] [address] Mar, [facility] [address] [id number] [address] [place] [address], [place] [address] Mar, [facility] [address] [id number] [address] [place] [address], [place] [address] Mar, [facility] [address] [id number] [address] [place] [address], [place] [address] Mar, [facility] [address] [id number] [address] [place] [address], [place] [address] 29 Feb, 2012 [facility] [address] [id number] [address] [place] [address], [place] [address] 27 Feb, 2012 [facility] [address] [id number] [address] [place] [address], [place] [address] 20 Feb, 2012 [facility] [address] [id number] [address] [place] [address], [place] [address] Jan, [facility] [address] [id number] [address] [place] [address], [place] [address] Jan, [facility] [address] [id number] [address] [place] [address], [place] [address] Jan, [facility] [address] [id number] [address] [place] [address], [place] [address] Jan, [facility] [address] [id number] [address] [place] [address], [place] [address] Dec, [facility] [address] [id number] [address] [place] [address], [place] [address] Dec, [facility] [address] [id number] [address] [place] [address], [place] [address] Nov, [facility] [address] [id number] [address] [place] [address], [place] [address] Nov, [facility] [address] [id number] [address] [place] [address], [place] [address] October, [facility] [address] [id number] [address] [place] [address], [place] [address] October, [facility] [address] [id number] [address] [place] [address], [place] [address] October, [facility] [address] [id number] [address] [place] [address], [place] [address] Sep, [facility] [address] [id number] [address] [place] [address], [place] [address] Sep, [facility] [address] [id number] [address] [place] [address], [place] [address] Sep, [facility] [address] [id number] [address] [place] [address], [place] [address] Aug, [facility] [address] [id number] [address] [place] [address], [place] [address] Aug, [facility] [address] [id number] [address] [place] [address], [place] [address] Aug, [facility] [address] [id number] [address] [place] [address], [place] [address] 15 Aug, 2011 [facility] [address] [id number] [address] [place] [address], [place] [address] Aug, [facility] [address] [id number] [address] [place] [address], [place] [address] Jul, [facility] [address] [id number] [address] [place] [address], [place] [address] 16 Jul, 2011 [facility] [address] [id number] [address] [place] [address], [place] [address] 13 Jul, 2011 [facility] [address] [id number] [address] [place] [address], [place] [address] Jul, [facility] [address] [id number] [address] [place] [address], [place] [address] Jul, [facility] [address] [id number] [address] [place] [address], [place] [address] Jul, [facility] [address] [id number] [address] [place] [address], [place] [address] Jul, [facility] [address] [id number] [address] [place] [address], [place] [address] Jul, [facility] [address] [id number] [address] [place] [address], [place] [address] Jun, [facility] [address] [id number] [address] [place] [address], [place] [address] Jun, [facility] [address] [id number] [address] [place] [address], [place] [address] May, [facility] [address] [id number] [address] [place] [address], [place] [address] May, [facility] [address] [id number] [address] [place] [address], [place] [address] May, [facility] [address] [id number] [address] [place] [address], [place] [address] 08 May, 2011 [facility] [address] [id number] [address] [place] [address], [place] [address] 30 Apr, 2011 [facility] [address] [id number] [address] [place] [address], [place] [address] 28 Apr, 2011 [facility] [address] [id number] [address] [place] [address], [place] [address] Apr, [facility] [address] [id number] [address] [place] [address], [place] [address] 18 Mar, 2011 [facility] [address] [id number] [address] [place] [address], [place] [address] 18 Mar, 2011 [facility] [address] [id number] [address] [place] [address], [place] [address] 18 Mar, 2011 [facility] [address] [id number] [address] [place] [address], [place] [address] Mar, [facility] [address] [id number] [address] [place] [address], [place] [address] Dec, [facility] [address] [id number] [address] [place] [address], [place] [address] October, [facility] [address] [id number] [address] [place] [address], [place] [address] May, [facility] [address] [id number] [address] [place] [address], [place] [address] 13 May, 2010 [facility] [address] [id number] [address] [place] [address], [place] [address] May, [facility] [address] [id number] [address] [place] [address], [place] [address] 06 May, 2010 [facility] [address] [id number] [address] [place] [address], [place] [address] Mar, [facility] [address] [id number] [address] [place] [address], [place] [address] Mar, [facility] [address] [id number] [address] [place] [address] May, [facility] [address] [id number] [address] [place] [phone] May, [facility] [address] [id number] [address] [place] [phone] May, [facility] [address] [facility] [id number] [address] [place] [address] May, [facility] [address] [id number] [address] [place] [address] Apr, [facility] [address] [facility] [id number] [address] [place] [address] Apr, [facility] [address] [facility] [id number] [address] [place] [address] October, IMMUNIZATIONS No Known Immunizations SOCIAL HISTORY [...]
--- OUTSIDE RECORDS SUMMARY | 2020-01-13 11:40 | XMS REPORT ---
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 Name Role Phone LEIDY REY Unavailable PROBLEMS Type Condition ICD9-CM Code XOY83-TY Code Onset Dates Condition S tatus SNOMED Code Problem History of illicit drug use Z87.898 Ac tive 067552256 Problem Snoring R06.83 Active 47830193 Problem Impaired circulation I99.9 Active 31809605 Problem MRSA (methicillin resistant staph aureus) culture positive Z22.322 Active 165248088 Problem Panic disorder without agoraphobia F41.0 Active 32939339 Problem Dysthymic disorder F34.1 Active 7 0523645 Problem Mood disorder F39 Active 158813 05 Problem Arthritis M19.90 Active 6115215 Problem Mild chronic obstructive pulmonary disease J44.9 Active 831673651 Problem Mild persistent asthma without complication J45.30 Active 529566638 Problem Essential hypertension I10 Active 34289592 Problem On home oxygen therapy Z99.81 Active 958196374326 Problem 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 Active 798415 02 Problem Neuropathy G62.9 Active 479517754 Problem 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 Active 882273972 Problem Major depressive disorder, recurrent episode, moderate F33.1 Active 023786644 Problem Psychotic disorder F29 Active 6 5844845 Problem Hypertension, benign I10 Active 08831404 Problem Onychomycosis B35.1 Active 357737 008 Problem Body mass index (BMI) 40.0-44.9, adult Z68.41 Active 461236192 Problem Varicose veins of both lower extremities I83.93 Active 15833177 Problem Sciatica, left side M54.32 Active 75108160 Problem Agoraphobia F40.00 Active 26277612 Problem Fatigue R53.83 Active 94664395 Problem Major depressive disorder in full remission F32.5 Active 13321975 Problem Slow transit constipation K59.01 Acti ve 09592436 Problem Chronic obstructive pulmonary disease, unspecified COPD ty pe J44.9 Active 95670767 Problem Unspecified psychosis not du e to a substance or known physiological condition F29 Active 245850836 ALLERGIES No Information ENCOUNTERS Encounter Location Date Diagnosis [place] [address] [address] [facility] [id number] [address] [place] [address] Nov, [place] [address] [facility] [id number] [address] [place] [address] October, [place] [address] [facility] [id number] [address] [place] [address] October, Abdominal pain, right upper quadrant R10.11 [place] [address] [place] [id number] [address] [place] [address] Sep, [id number] [place] [address] Sep, [place] [address] [place] [id number] [address] [place] [address] 15 Sep, 2019 Abdominal pain, right upper quadrant R10.11 [place] [address] [place] [id number] [address] [place] [address] 06 Sep, 2019 Panic disorder without agora phobia F41.0 ; Major depressive disorder, recurrent episode, moderate F33.1 and Morbid obesity E66.01 [place] [address] [place] [id number] [address] [place] [address] Aug, Bronchitis J40 [place] [address] [facility] [id number] [address] [place] [address] Aug, Sciatica, left side M54.32 a nd Morbid obesity E66.01 [place] [address] [facility] [id number] [address] [place] [address] Aug, [place] [address] [facility] [id number] [address] [place] [address] Aug, Sciatica, left side M54.32 [place] [address] [address] Aug, Neuropathy G62.9 ; Onychomyc osis B35.1 ; Callus of foot L84 and Skin fissures R23.4 [place] [address] [address] Jul, [place] [address] [address] Jul, Morbid obesity E66.01 [place] [address] [address] Jul, Unspecified psychosis not du e to a substance or known physiological condition F29 ; Chronic obstructive pulmonary disease, unspecified COPD type J44.9 and Body mass index (BMI) 40.0-44.9, adult Z68.41 [place] [address] [address] Jun, [place] [address] [address] Jun, Morbid obesity E66.01 [place] [address] [address] May, Morbid obesity E66.01 [place] [address] [address] May, Encounter for immunization Z 23 [place] [address] [address] May, Major depressive disorder, r ecurrent episode, moderate F33.1 ; Panic disorder without agoraphobia F41.0 and Morbid obesity E66.01 [place] [address] [address] May, Major depressive disorder in full remission F32.5 and Panic disorder without agoraphobia F41.0 [place] [address] [address] Apr, Morbid obesity E66.01 [place] [address] [place] [id number] [address] [place] [address] Apr, Slow transit constipation K5 9.01 and Cellulitis of left lower extremity L03.116 [place] [address] [place] [id number] [address] [place] [address] Apr, Morbid obesity E66.01 [place] [address] [place] [address] Apr, [place] [address] [place] [id number] [place] [address] Apr, Major depressive disorder, r ecurrent episode, moderate F33.1 and Panic disorder without agoraphobia F41.0 [place] [address] [address] Mar, Viral upper respiratory trac t infection J06.9 [place] [address] [address] Mar, Bronchitis J40 and Encounter for immunization Z23 [address] [address] Mar, Morbid obesity E66.01 [place] [address] [place] [address] Feb, Major depressive disorder, r ecurrent episode, moderate F33.1 and Panic disorder without agoraphobia F41.0 [place] [address] [place] [id number] [address] [place] [address] Feb, Morbid obesity E66.01 [place] [address] [place] [id number] [address] [place] [address] 06 Feb, 2019 Onychomycosis B35.1 ; 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 and Xerosis of skin L85.3 [place] [address] [place] [id number] [address] [place] [address] Feb, Major depressive disorder, r ecurrent episode, moderate F33.1 ; Panic disorder without agoraphobia F41.0 and Morbid obesity E66.01 [facility] [address] [facility] [id number] [address] [place] [address] Jan, Major depressive disorder in full remission F32.5 and Panic disorder without agoraphobia F41.0 [facility] [address] [facility] [id number] [address] [place] [address] Jan, Pneumonia of both lower lobe s due to infectious organism J18.1 and Morbid obesity E66.01 [facility] [address] [facility] [id number] [address] [place] [address] Jan, [facility] [address] [facility] [id number] [address] [place] [address] Jan, Major depressive disorder in full remission F32.5 and Panic disorder without agoraphobia F41.0 [facility] [address] [facility] [id number] [address] [place] [address] Jan, [facility] [address] [facility] [id number] [address] [place] [address] Jan, Major depressive disorder, r ecurrent episode, moderate F33.1 ; Panic disorder without agoraphobia F41.0 and Morbid obesity E66.01 [facility] [address] [facility] [id number] [address] [place] [address] Dec, Bilious vomiting with nausea R11.14 ; Coughing R05 and Choking, subsequent encounter T17.308D [facility] [address] [facility] [id number] [address] [place] [address] Dec, Morbid obesity E66.01 [facility] [address] [facility] [id number] [address] [place] [address] Dec, Major depressive disorder, r ecurrent episode, moderate F33.1 and Panic disorder without agoraphobia F41.0 [facility] [address] [facility] [id number] [address] [place] [address] Dec, [place] [address] [place] [id number] [address] [place] [address] Dec, Major depressive disorder, r ecurrent episode, moderate F33.1 [place] [address] [address] Nov, Major depressive disorder, r ecurrent episode, moderate F33.1 ; Panic disorder without agoraphobia F41.0 and Morbid obesity E66.01 [place] [address] [place] [id number] [address] [place] [address] Nov, Morbid obesity E66.01 [place] [address] [address] Nov, Major depressive disorder, r ecurrent episode, moderate F33.1 and Panic disorder without agoraphobia F41.0 [facility] [place] [address] [address] Nov, Allergic reaction, initial e ncounter T78.40XA and Morbid obesity E66.01 [place] [address] [address] Nov, [place] [address] [address] Nov, Morbid obesity E66.01 ; Swal lowing problem R13.10 and Hypertension, benign I10 [facility] [place] [address] [address] [place] [id number] [address] [place] [address] 07 Nov, 2018 Morbid obesity E66.01 ; COPD exacerbation J44.1 and Non- recurrent acute suppurative otitis media of left ear without spontaneous rupture of tympanic membrane H66.002 [place] [address] [place] [id number] [address] [place] [address] 07 Nov, 2018 Onychomycosis B35.1 ; Neurop athy G62.9 and Fissure in skin of foot R23.4 [place] [address] [place] [id number] [address] [place] [address] October, Major depressive disorder, r ecurrent episode, moderate F33.1 ; Panic disorder without agoraphobia F41.0 and Morbid obesity E66.01 [facility] [address] [id number] [address] [place] [address] October, Viral upper respiratory trac t infection J06.9 [facility] [address] [facility] [id number] [address] [place] [address] October, [facility] [address] [facility] [id number] [address] [place] [address] October, Major depressive disorder, r ecurrent episode, moderate F33.1 and Panic disorder without agoraphobia F41.0 [facility] [address] [facility] [id number] [address] [place] [address] October, [facility] [address] [facility] [id number] [address] [place] [address] October, [facility] [address] [facility] [id number] [address] [place] [address] October, [facility] [address] [facility] [id number] [address] [place] [address] October, [facility] [address] [facility] [id number] [address] [place] [address] October, [facility] [address] [facility] [id number] [address] [place] [address] October, [facility] [address] [facility] [id number] [address] [place] [address] October, Major depressive disorder, r ecurrent episode, moderate F33.1 and Panic disorder without agoraphobia F41.0 [facility] [address] [facility] [id number] [address] [place] [address] Sep, Morbid obesity E66.01 and Vane mbar neuritis M54.16 [facility] [address] [place] [id number] [address] [place] [address] Sep, Panic disorder without agora phobia F41.0 and Major depressive disorder, recurrent episode, moderate F33.1 [facility] [address] [place] [id number] [address] [place] [address] Sep, Gastroenteritis K52.9 ; Low back pain M54.5 ; Other chronic pain G89.29 and Morbid obesity E66.01 [facility] [address] [address] Sep, Major depressive disorder, r ecurrent episode, moderate F33.1 ; Panic disorder without agoraphobia F41.0 and 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 [place] [address] [address] Sep, Panic disorder without agora phobia F41.0 [facility] [address] [address] Sep, Panic disorder without agora phobia F41.0 [facility] [address] [address] Aug, Panic disorder without agora phobia F41.0 ; Major depressive disorder, recurrent episode, moderate F33.1 ; 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 ; Psychotic disorder F29 ; Tardive dyskinesia G24.01 and Morbid obesity E66.01 [facility] [address] [place] [id number] [address] [place] [address] Aug, Dysthymic disorder F34.1 and Psychotic disorder F29 [place] [address] [place] [id number] [address] [place] [address] Aug, Encounter for Medicare annua l wellness exam Z00.00 ; Morbid obesity E66.01 and 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 arthropathy E11.610 [facility] [address] [place] [address] Aug, Dysthymic disorder F34.1 and Psychotic disorder F29 [place] [address] [place] [address] Aug, Neuropathy G62.9 ; Onychomyc osis B35.1 and Xerosis of skin L85.3 [place] [address] [place] [id number] [address] [place] [address] Jul, [place] [address] [address] Jul, Mood disorder F39 ; Wheezing R06.2 ; Choking, initial encounter T17.308A and Coughing R05 [place] [address] [address] Jul, Low back pain M54.5 [facility] IN [facility] [address] [place] [id number] [address] [place] [address] Jun, Flu-like symptoms R68.89 ; B PR 45.0-49.9, adult Z68.42 ; COPD exacerbation J44.1 and Acute bronchitis J20.9 [place] [address] [place] [id number] [address] [place] [address] Jun, [place] [address] [address] May, [place] [address] [address] May, Onychomycosis B35.1 and 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 [place] [address] [place] [id number] [address] [place] [address] May, Low back pain M54.5 and Abdoulaye a leg R60.0 [place] [address] [place] [id number] [place] [address] May, BMI 45.0-49.9, adult Z68.42 ; Well woman exam with routine gynecological exam Z01.419 and Breast cancer screening Z12.31 [place] [address] [address] Apr, Arthritis M19.90 [place] [address] [address] 16 Apr, 2018 Arthritis M19.90 and Otalgia of both ears H92.03 [place] [address] [address] Feb, [place] [address] [address] Feb, Low back pain M54.5 ; Other chronic pain G89.29 ; Exertional asthma J45.990 and Encounter for immunization Z23 [place] [address] [address] Feb, Skin fissures R23.4 ; Neurop athy G62.9 and Onychomycosis B35.1 [place] [address] [address] Feb, Dysthymic disorder F34.1 [place] [address] [address] Feb, [place] [address] [address] Jan, [place] [address] [address] Jan, Abrasion of right elbow, ini tial encounter S50.311A ; Abrasion, right knee, initial encounter S80.211A and Sprain of other ligament of right ankle, initial encounter S93.491A [place] [address] [address] Jan, [facility] [address] [address] Jan, Injury of left ankle, initia l encounter S99.912A ; Fall down stairs, initial encounter W10.8XXA and BMI 45.0-49.9, adult Z68.42 [facility] [address] [place] [address] Jan, COPD exacerbation J44.1 [facility] [address] [place] [id number] [address] [place] [address] 13 Jan, 2018 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 [facility] [address] [address] Jan, Bronchitis J40 and Acute sup purative otitis media of left ear without spontaneous rupture of tympanic membrane, recurrence not specified H66.002 [place] [address] [address] Jan, [place] [address] [place] [id number] [place] [address] Jan, Bronchitis J40 and BMI 40.0- 44.9, adult Z68.41 [place] [address] [place] [id number] [address] [place] [address] Jan, [place] [address] [address] Dec, Gastric pain R10.9 [place] [address] [place] [id number] [place] [address] Dec, [facility] [address] [address] Dec, History of illicit drug use Z87.898 ; Neuropathy G62.9 ; COPD (chronic obstructive pulmonary disease) with chronic bronchitis J44.9 and Acute pain of right knee M25.561 [place] [address] [place] [id number] [address] [place] [address] Nov, [place] [id number] [place] [id number] [address] [place] [address] Nov, Onychomycosis B35.1 and Cont usion of left foot, subsequent encounter S90.32XD [place] [address] [address] 13 Nov, 2017 COPD exacerbation J44.1 [place] [address] [address] Sep, [place] [address] [address] Sep, Dysthymic disorder F34.1 ; T obacco abuse Z72.0 ; Pain in right knee M25.561 ; Pain in left knee M25.562 ; Other chronic pain G89.29 and BMI 40.0- 44.9, adult Z68.41 [place] [address] [address] Aug, Major depressive disorder, r ecurrent episode, moderate F33.1 and 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 [place] [address] [address] 14 Aug, 2017 Dysthymic disorder F34.1 ; N on-pressure chronic ulcer of left thigh, unspecified ulcer stage L97.129 ; Tobacco abuse Z72.0 ; Mild chronic obstructive pulmonary disease J44.9 and Forgetfulness R68.89 [place] [address] [address] 09 Aug, 2017 Onychomycosis B35.1 ; Fissur e in skin of foot R23.4 and Foot callus L84 [facility] [address] [address] Jul, Right medial knee pain M25.5 61 ; Upper respiratory tract infection, unspecified type J06.9 and BMI 40.0-44.9, adult Z68.41 [facility] [address] [address] 08 Jul, 2017 Nausea and vomiting, intract ability of vomiting not specified, unspecified vomiting type R11.2 ; Left ear pain H92.02 and Gastric pain R10.9 [place] [address] [facility] [id number] [address] [place] [address] Apr, Encounter for immunization Z 23 [facility] [address] [facility] [id number] [address] [place] [address] Apr, Onychomycosis B35.1 ; Xerosi s of skin L85.3 ; Neuropathy G62.9 and 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 [facility] [address] [facility] [id number] [address] [place] [address] Jan, Onychomycosis B35.1 and Neur opathy G62.9 [facility] [address] [facility] [id number] [address] [place] [address] Dec, [facility] [address] [facility] [id number] [address] [place] [address] Dec, [facility] [address] [facility] [id number] [address] [place] [address] Nov, [facility] [address] [facility] [id number] [address] [place] [address] Aug, [facility] [address] [facility] [id number] [address] [place] [address] Aug, [facility] [address] [facility] [id number] [address] [place] [address] Jul, [facility] [address] [facility] [id number] [address] [place] [address] Jul, [facility] [address] [facility] [id number] [address] [place] [address] Jul, Decubitus ulcer of left thig h, stage 2 L89.892 [facility] [address] [facility] [id number] [address] [place] [address] Jul, Decubitus ulcer of left thig h, stage 2 L89.892 [facility] [address] [place] [id number] [address] [place] [address] Jul, 2016 [facility] [address] [id number] [address] [place] [address] 15 Jul, 2016 Decubitus ulcer of left thig h, stage 2 L89.892 [facility] [address] [id number] [address] [place] [address] 14 Jul, 2016 [facility] [address] [facility] [id number] [address] [place] [address] 13 Jul, 2016 Cellulitis of other specifie d site L03.818 ; Illicit drug use F19.90 and Decubitus ulcer of left thigh, stage 2 L89.892 [facility] [address] [id number] [address] [place] [address] 08 Jul, 2016 [facility] [address] [facility] [id number] [address] [place] [address] 06 Jul, 2016 Cellulitis of right breast N 61.0 [facility] [address] [facility] [id number] [address] [place] [address] Jun, [facility] [address] [facility] [id number] [address] [place] [address] Jun, [facility] [address] [facility] [id number] [address] [place] [address] Jun, Wheezing R06.2 and Arthralgi a, unspecified joint M25.50 [facility] [address] [facility] [id number] [address] [place] [address] May, [facility] [address] [facility] [id number] [address] [place] [id number] May, [facility] [address] [facility] [id number] [address] [place] [id number] May, [facility] [address] [facility] [id number] [address] [place] [id number] May, Shortness of breath R06.02 [facility] [address] [id number] [address] [place] [id number] 02 May, 2016 Onychomycosis B35.1 and Fiss ure in skin of foot R23.4 [facility] [address] [id number] [address] [place] [id number] 28 Apr, 2016 [facility] [address] [facility] [id number] [address] [place] [id number] 18 Apr, 2016 Dizziness R42 [facility] [address] [facility] [id number] [address] [place] [id number] 14 Apr, 2016 Shortness of breath R06.02 ; Essential hypertension I10 ; Dizziness R42 and On home oxygen therapy Z99.81 [facility] [address] [id number] [address] [place] [id number] Apr, [facility] [address] [facility] [id number] [address] [place] [id number] 08 Apr, 2016 [facility] [address] [id number] [address] [place] [id number] Apr, [facility] [address] [id number] [address] [place] [id number] Apr, [facility] [address] [facility] [id number] [address] [place] [id number] Apr, [facility] [address] [id number] [address] [place] [id number] Apr, [facility] [address] [id number] [place] [address] Apr, [facility] [address] [facility] [id number] [address] [place] [address] Mar, Mild chronic obstructive pul monary disease J44.9 [facility] [address] [id number] [address] [place] [address] Mar, [facility] [address] [facility] [id number] [address] [place] [address] 20 Oct, 2016 Epigastric pain R10.13 ; Low back pain M54.5 ; Other chronic pain G89.29 and Breast cancer screening Z12.39 [place] [address] [address] Mar, [place] [address] [place] [id number] [place] [address] Mar, [place] [address] [address] Feb, [place] [address] [place] [id number] [place] [address] Feb, [place] [address] [address] Feb, Fissure in skin of foot R23. 4 and Onychomycosis B35.[address] [address] Jan, Agoraphobia F40.00 [place] [address] [address] Dec, Agoraphobia F40.00 [place] [address] [address] Dec, Mild persistent asthma witho ut complication J45.30 ; Dysthymic disorder F34.1 and Upper respiratory tract infection, unspecified type J06.9 [place] [address] [place] [id number] [address] [place] [address] Nov, Agoraphobia F40.00 [place] [address] [place] [id number] [address] [place] [address] October, Agoraphobia F40.00 [place] [address] [place] [id number] [place] [address] Sep, Panic disorder without agora phobia F41.0 ; Agoraphobia F40.00 and Dysthymic disorder F34.1 [place] [address] [facility] [id number] [address] [place] [address] Sep, Panic attacks F41.0 [place] [address] [facility] [id number] [address] [place] [address] Sep, [place] [address] [facility] [id number] [address] [place] [address] Sep, Panic disorder without agora phobia F41.0 ; Varicose veins of both lower extremities I83.93 and Fatigue R53.83 [place] [address] [facility] [id number] [address] [place] [address] 14 Sep, 2015 Fatigue R53.83 [place] [address] [facility] [id number] [address] [place] [address] 05 Sep, 2015 [place] [address] [place] [id number] [address] [place] [address] Aug, [place] [id number] [place] [address] Aug, [place] [address] [place] [id number] [address] [place] [address] Aug, Type 2 diabetes mellitus wit h diabetic neuropathic arthropathy E11.610 [place] [address] [place] [id number] [address] [place] [address] Aug, Panic disorder without agora phobia F41.0 ; Agoraphobia F40.00 and Dysthymic disorder F34.1 [place] [address] [place] [id number] [address] [place] [address] Aug, Shortness of breath R06.02 ; Panic attacks F41.0 ; COPD (chronic obstructive pulmonary disease) J44.9 ; Tobacco abuse Z72.0 ; Family history of diabetes mellitus Z83.3 and Weight gain R63.5 [place] [address] [place] [id number] [address] [place] [address] Aug, [place] [address] [place] [id number] [address] [place] [address] Jul, [facility] [address] [facility] [id number] [address] [place] [address] Jun, Onychomycosis B35.1 ; Neurop athy G62.9 and Impaired circulation I99.9 [facility] [address] [facility] [id number] [address] [place] [address] 09 Mar, 2015 Fissure in skin of foot R23. 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 [facility] [address] [facility] [id number] [address] [place] [address] 18 Feb, 2015 Family history of coronary a rteriosclerosis V17.3 [facility] [address] [place] [id number] [address] [place] [address] 15 Feb, 2015 Allergic rhinitis due to darien agnieszka 477.0 ; Unspecified breast screening V76.10 ; Anxiety 300.00 and Family history of coronary arteriosclerosis V17.3 [facility] [address] [facility] [id number] [address] [place] [address] Jan, [facility] [address] [place] [id number] [address] [place] [address] Dec, [facility] [address] [place] [id number] [address] [place] [address] Dec, Onychomycosis 110.1 and Skin fissures 709.8 [facility] [address] [facility] [id number] [address] [place] [address] Sep, [facility] [address] [facility] [id number] [address] [place] [address] Sep, [facility] [address] [facility] [id number] [address] [place] [address] Aug, [facility] [address] [place] [id number] [address] [place] [address] Aug, [facility] [address] [place] [id number] [address] [place] [address] Jul, [facility] [address] [id number] [address] [place] [address], [place] [address] Jul, [facility] [address] [id number] [address] [place] [address], [place] [address] Jun, [facility] [address] [id number] [address] [place] [address], [place] [address] Jun, [facility] [address] [id number] [address] [place] [address], [place] [address] Jun, [facility] [address] [id number] [address] [place] [address], [place] [address] Jun, [facility] [address] [id number] [address] [place] [address], [place] [address] Jun, [facility] [address] [id number] [address] [place] [address], [place] [address] May, [facility] [address] [id number] [address] [place] [address], [place] [address] May, [facility] [address] [id number] [address] [place] [address], [place] [address] May, [facility] [address] [id number] [address] [place] [address], [place] [address] May, [facility] [address] [id number] [address] [place] [address], [place] [address] May, [facility] [address] [id number] [address] [place] [address], [place] [address] May, [facility] [address] [id number] [address] [place] [address], [place] [address] May, [facility] [address] [id number] [address] [place] [address], [place] [address] May, [facility] [address] [id number] [address] [place] [address], [place] [address] Apr, [facility] [address] [id number] [address] [place] [address], [place] [address] Apr, [facility] [address] [id number] [address] [place] [address], [place] [address] Apr, [facility] [address] [id number] [address] [place] [address], [place] [address] Apr, [facility] [address] [id number] [address] [place] [address], [place] [address] Apr, [facility] [address] [id number] [address] [place] [address], [place] [address] Apr, [facility] [address] [id number] [address] [place] [address], [place] [address] Apr, [facility] [address] [id number] [address] [place] [address], [place] [address] Apr, [facility] [address] [id number] [address] [place] [address], [place] [address] Apr, [facility] [address] [id number] [address] [place] [address], [place] [address] Apr, [facility] [address] [id number] [address] [place] [address], [place] [address] Mar, [facility] [address] [id number] [address] [place] [address], [place] [address] Mar, [facility] [address] [id number] [address] [place] [address], [place] [address] Mar, [facility] [address] [id number] [address] [place] [address], [place] [address] Mar, [facility] [address] [id number] [address] [place] [address], [place] [address] Mar, [facility] [address] [id number] [address] [place] [address], [place] [address] Mar, [facility] [address] [id number] [address] [place] [address], [place] [address] Mar, [facility] [address] [id number] [address] [place] [address], [place] [address] Mar, [facility] [address] [id number] [address] [place] [address], [place] [address] Mar, [facility] [address] [id number] [address] [place] [address], [place] [address] Mar, [facility] [address] [id number] [address] [place] [address], [place] [address] Mar, [facility] [address] [id number] [address] [place] [address], [place] [address] Mar, [facility] [address] [id number] [address] [place] [address], [place] [address] Mar, [facility] [address] [id number] [address] [place] [address], [place] [address] Mar, [facility] [address] [id number] [address] [place] [address], [place] [address] Mar, [facility] [address] [id number] [address] [place] [address], [place] [address] 20 Mar, 2014 [facility] [address] [id number] [address] [place] [address], [place] [address] 20 Mar, 2014 [facility] [address] [id number] [address] [place] [address], [place] [address] 16 Mar, 2014 [facility] [address] [id number] [address] [place] [address] 16 Mar, 2013 [facility] [address] [id number] [address] [place] [address], [place] [address] 15 Mar, 2014 [facility] [address] [id number] [address] [place] [address], [place] [address] 14 Mar, 2014 [facility] [address] [id number] [address] [place] [address], [place] [address] 14 Mar, 2014 [facility] [address] [id number] [address] [place] [address], [place] [address] 14 Mar, 2013 [facility] [address] [id number] [address] [place] [address], [place] [address] 14 Mar, 2013 [facility] [address] [id number] [address] [place] [address], [place] [address] 09 Mar, 2013 [facility] [address] [id number] [address] [place] [address], [place] [address] 09 Mar, 2013 [facility] [address] [id number] [address] [place] [address], [place] [address] 09 Mar, 2013 [facility] [address] [id number] [address] [place] [address], [place] [address] Mar, 2013 [facility] [address] [id number] [address] [place] [address], [place] [address] 30 Feb, 2013 [facility] [address] [id number] [address] [place] [address], [place] [address] 30 Sep, 2013 [facility] [address] [id number] [address] [place] [address], [place] [address] 30 Sep, 2013 [facility] [address] [id number] [address] [place] [address], [place] [address] 30 Sep, 2013 [facility] [address] [id number] [address] [place] [address], [place] [address] 26 Sep, 2013 [facility] [address] [id number] [address] [place] [address], [place] [address] 26 Sep, 2013 [facility] [address] [id number] [address] [place] [address], [place] [address] 09 Sep, 2013 [facility] [address] [id number] [address] [place] [address], [place] [address] 09 Sep, 2013 [facility] [address] [id number] [address] [place] [address], [place] [address] 03 Sep, 2013 [facility] [address] [id number] [address] [place] [address], [place] [address] Feb, [facility] [address] [id number] [address] [place] [address], [place] [address] Feb, [facility] [address] [id number] [address] [place] [address], [place] [address] Feb, [facility] [address] [id number] [address] [place] [address], [place] [address] Jan, [facility] [address] [id number] [address] [place] [address], [place] [address] Jan, [facility] [address] [id number] [address] [place] [address], [place] [address] Jan, [facility] [address] [id number] [address] [place] [address], [place] [address] Jan, [facility] [address] [id number] [address] [place] [address], [place] [address] Jan, [facility] [address] [id number] [address] [place] [address], [place] [address] Jan, [facility] [address] [id number] [address] [place] [address], [place] [address] Jan, [facility] [address] [id number] [address] [place] [address], [place] [address] Jan, [facility] [address] [id number] [address] [place] [address], [place] [address] Jan, [facility] [address] [id number] [address] [place] [address], [place] [address] Jan, [facility] [address] [id number] [address] [place] [address], [place] [address] Jan, [facility] [address] [id number] [address] [place] [address], [place] [address] Jan, [facility] [address] [id number] [address] [place] [address], [place] [address] Jan, [facility] [address] [id number] [address] [place] [address], [place] [address] Dec, 2013 [facility] [address] [id number] [facility] [place] [address] Dec, 2013 [facility] [address] [id number] [address] [place] [address], [place] [address] Dec, [facility] [address] [id number] [address] [place] [address], [place] [address] Dec, 2013 [facility] [address] [id number] [address] [place] [address], [place] [address] Dec, 2013 [facility] [address] [id number] [address] [place] [address], [place] [address] Dec, [facility] [address] [id number] [address] [place] [address], [place] [address] Dec, [facility] [address] [id number] [address] [place] [address], [place] [address] Dec, [facility] [address] [id number] [address] [place] [address], [place] [address] Dec, [facility] [address] [id number] [address] [place] [address], [place] [address] Dec, 2013 [facility] [address] [id number] [address] [place] [address], [place] [address] Dec, 2013 [facility] [address] [id number] [address] [place] [address], [place] [address] Dec, 2013 [facility] [address] [id number] [address] [place] [address], [place] [address] Dec, [facility] [address] [id number] [address] [place] [address], [place] [address] Dec, 2013 [facility] [address] [id number] [address] [place] [address], [place] [address] Dec, 2013 [facility] [address] [id number] [address] [place] [address], [place] [address] Dec, 2013 [facility] [address] [id number] [facility] [place] [address] 08 Dec, 2013 [facility] [address] [id number] [facility] [place] [address] Dec, [facility] [address] [id number] [facility] [place] [address] Nov, [facility] [address] [id number] [facility] [place] [address] Nov, [facility] [address] [id number] [address] [place] [address], [place] [address] Nov, [facility] [address] [id number] [address] [place] [address], [place] [address] Nov, [facility] [address] [id number] [address] [place] [address], [place] [address] Nov, [facility] [address] [id number] [address] [place] [address], [place] [address] Nov, [facility] [address] [id number] [address] [place] [address], [place] [address] Nov, [facility] [address] [id number] [address] [place] [address], [place] [address] Nov, [facility] [address] [id number] [address] [place] [address], [place] [address] Nov, [facility] [address] [id number] [address] [place] [address], [place] [address] Nov, [facility] [address] [id number] [address] [place] [address], [place] [address] Nov, [facility] [address] [id number] [address] [place] [address], [place] [address] Nov, [facility] [address] [id number] [address] [place] [address], [place] [address] Nov, [facility] [address] [id number] [address] [place] [address], [place] [address] Nov, [facility] [address] [id number] [facility] [place] [address] Nov, [facility] [address] [id number] [address] [place] [address], [place] [address] Nov, [facility] [address] [id number] [address] [place] [address], [place] [address] Nov, [facility] [address] [id number] [address] [place] [address], [place] [address] Nov, [facility] [address] [id number] [address] [place] [address], [place] [address] Nov, [facility] [address] [id number] [address] [place] [address], [place] [address] Nov, [facility] [address] [id number] [address] [place] [address], [place] [address] October, [facility] [address] [id number] [address] [place] [address], [place] [address] October, [facility] [address] [id number] [address] [place] [address], [place] [address] October, [facility] [address] [id number] [address] [place] [address], [place] [address] October, [facility] [address] [id number] [address] [place] [address], [place] [address] Sep, [facility] [address] [id number] [address] [place] [address], [place] [address] Sep, [facility] [address] [id number] [address] [place] [address], [place] [address] Sep, [facility] [address] [id number] [address] [place] [address], [place] [address] Sep, [facility] [address] [id number] [address] [place] [address], [place] [address] Sep, [facility] [address] [id number] [address] [place] [address], [place] [address] Sep, [facility] [address] [id number] [address] [place] [address], [place] [address] Sep, [facility] [address] [id number] [address] [place] [address], [place] [address] Sep, [facility] [address] [id number] [address] [place] [address], [place] [address] Sep, [facility] [address] [id number] [address] [place] [address], [place] [address] Aug, [facility] [address] [id number] [address] [place] [address], [place] [address] Aug, [facility] [address] [id number] [address] [place] [address], [place] [address] Aug, [facility] [address] [id number] [address] [place] [address], [place] [address] Aug, [facility] [address] [id number] [address] [place] [address], [place] [address] Aug, [facility] [address] [id number] [address] [place] [address], [place] [address] Aug, [facility] [address] [id number] [address] [place] [address], [place] [address] Aug, [facility] [address] [id number] [address] [place] [address], [place] [address] Aug, [facility] [address] [id number] [address] [place] [address], [place] [address] Jul, [facility] [address] [id number] [address] [place] [address], [place] [address] Jul, [facility] [address] [id number] [address] [place] [address], [place] [address] Jun, [facility] [address] [id number] [address] [place] [address], [place] [address] Jun, [facility] [address] [id number] [address] [place] [address], [place] [address] Jun, [facility] [address] [id number] [address] [place] [address], [place] [address] Jun, [facility] [address] [id number] [address] [place] [address], [place] [address] Jun, [facility] [address] [id number] [address] [place] [address], [place] [address] Jun, [facility] [address] [id number] [address] [place] [address], [place] [address] Jun, [facility] [address] [id number] [address] [place] [address], [place] [address] Jun, [facility] [address] [id number] [address] [place] [address], [place] [address] Jun, [facility] [address] [id number] [address] [place] [address], [place] [address] Jun, [facility] [address] [id number] [address] [place] [address], [place] [address] Jun, [facility] [address] [id number] [address] [place] [address], [place] [address] Jun, [facility] [address] [id number] [address] [place] [address], [place] [address] May, [facility] [address] [id number] [address] [place] [address], [place] [address] May, [facility] [address] [id number] [address] [place] [address], [place] [address] May, [facility] [address] [id number] [address] [place] [address], [place] [address] May, [facility] [address] [id number] [address] [place] [address], [place] [address] May, [facility] [address] [id number] [address] [place] [address], [place] [address] May, [facility] [address] [id number] [address] [place] [address], [place] [address] May, [facility] [address] [id number] [address] [place] [address], [place] [address] May, [facility] [address] [id number] [address] [place] [address], [place] [address] May, [facility] [address] [id number] [address] [place] [address], [place] [address] May, [facility] [facility] [address] [id number] [address] [place] [address], [place] [address] May, [facility] [address] [id number] [address] [place] [address], [place] [address] May, [facility] [address] [id number] [address] [place] [address], [place] [address] May, [facility] [address] [id number] [address] [place] [address], [place] [address] Apr, [facility] [address] [id number] [address] [place] [address], [place] [address] Apr, [facility] [address] [id number] [address] [place] [address], [place] [address] Mar, [facility] [address] [id number] [address] [place] [address], [place] [address] Mar, [facility] [address] [id number] [address] [place] [id number] 24 Feb, 2013 [facility] [address] [id number] [address] [place] [address], [place] [id number] 23 Feb, 2013 [facility] [address] [id number] [address] [place] [address], [place] [id number] 05 Feb, 2013 [facility] [address] [id number] [address] [place] [address], [place] [id number] 04 Feb, 2013 [facility] [address] [id number] [address] [place] [address], [place] [address] Jan, [facility] [address] [id number] [address] [place] [address], [place] [address] Jan, [facility] [address] [id number] [address] [place] [address], [place] [address] Jan, [facility] [address] [id number] [address] [place] [address], [place] [address] Jan, [facility] [address] [id number] [address] [place] [address], [place] [address] Jan, [facility] [address] [id number] [address] [place] [address], [place] [address] Jan, [facility] [address] [id number] [address] [place] [address], [place] [address] Dec, [facility] [address] [id number] [address] [place] [address], [place] [address] Dec, [facility] [address] [id number] [address] [place] [address], [place] [address] Dec, [facility] [address] [id number] [address] [place] [address], [place] [address] Dec, [facility] [address] [id number] [address] [place] [address], [place] [address] Nov, [facility] [address] [id number] [address] [place] [address], [place] [address] October, [facility] [address] [id number] [address] [place] [address], [place] [address] October, [facility] [address] [id number] [address] [place] [address], [place] [address] October, [facility] [address] [id number] [address] [place] [address], [place] [address] Sep, [facility] [address] [id number] [address] [place] [address], [place] [address] Sep, [facility] [address] [id number] [address] [place] [address], [place] [address] Jun, [facility] [address] [id number] [address] [place] [address], [place] [address] Jun, [facility] [address] [id number] [address] [place] [address], [place] [address] Jun, [facility] [address] [id number] [address] [place] [address], [place] [address] Apr, [facility] [address] [id number] [address] [place] [address], [place] [address] Apr, [facility] [address] [id number] [address] [place] [address], [place] [address] Apr, [facility] [address] [id number] [address] [place] [address], [place] [address] Apr, [facility] [address] [id number] [address] [place] [address], [place] [address] Mar, [facility] [address] [id number] [address] [place] [address], [place] [address] Mar, [facility] [address] [id number] [address] [place] [address], [place] [address] Mar, [facility] [address] [id number] [address] [place] [address], [place] [address] Mar, [facility] [address] [id number] [address] [place] [id number] 29 Feb, 2012 [facility] [address] [id number] [address] [place] [address], [place] [address] 27 Feb, 2012 [facility] [address] [id number] [address] [place] [address], [place] [address] 20 Feb, 2012 [facility] [address] [id number] [address] [place] [address], [place] [address] 30 Jan, 2012 [facility] [address] [id number] [address] [place] [address], [place] [address] Jan, [facility] [address] [id number] [address] [place] [address], [place] [address] Jan, [facility] [address] [id number] [address] [place] [address], [place] [address] Jan, [facility] [address] [id number] [address] [place] [address], [place] [address] Dec, [facility] [address] [id number] [address] [place] [address], [place] [address] Dec, [facility] [address] [id number] [address] [place] [address], [place] [address] Nov, [facility] [address] [id number] [address] [place] [address], [place] [address] Nov, [facility] [address] [id number] [address] [place] [address], [place] [address] October, [facility] [address] [id number] [address] [place] [address], [place] [address] October, [facility] [address] [id number] [address] [place] [address], [place] [address] October, [facility] [address] [id number] [address] [place] [address], [place] [address] Sep, [facility] [address] [id number] [address] [place] [address], [place] [address] Sep, [facility] [address] [id number] [address] [place] [address], [place] [address] Sep, [facility] [address] [id number] [address] [place] [address], [place] [address] Aug, [facility] [address] [id number] [address] [place] [address], [place] [address] Aug, [facility] [address] [id number] [address] [place] [address], [place] [address] Aug, [facility] [address] [id number] [address] [place] [address], [place] [address] 15 Aug, 2011 [facility] [address] [id number] [address] [place] [address], [place] [address] 07 Aug, 2011 [facility] [address] [id number] [address] [place] [address], [place] [address] 23 Jul, 2011 [facility] [address] [id number] [address] [place] [address], [place] [address] 16 Jul, 2011 [facility] [address] [id number] [address] [place] [address], [place] [address] 13 Jul, 2011 [facility] [address] [id number] [address] [place] [address], [place] [address] 09 Jul, 2011 [facility] [address] [id number] [address] [place] [address], [place] [address] Jul, [facility] [address] [id number] [address] [place] [address], [place] [address] Jul, [facility] [address] [id number] [address] [place] [address], [place] [address] Jul, [facility] [address] [id number] [address] [place] [address], [place] [address] Jul, [facility] [address] [id number] [address] [place] [address], [place] [address] Jun, [facility] [address] [id number] [address] [place] [address], [place] [address] Jun, [facility] [address] [id number] [address] [place] [address], [place] [address] May, [facility] [address] [id number] [address] [place] [address], [place] [address] May, [facility] [address] [id number] [address] [place] [address], [place] [address] May, [facility] [address] [id number] [address] [place] [id number] 08 May, 2011 [facility] [address] [id number] [address] [place] [address], [place] [address] 30 Apr, 2011 [facility] [address] [id number] [address] [place] [address], [place] [address] Apr, [facility] [address] [id number] [address] [place] [address], [place] [address] Apr, [facility] [address] [id number] [address] [place] [address], [place] [address] 18 Mar, 2011 [facility] [address] [id number] [address] [place] [address], [place] [address] Mar, [facility] [address] [id number] [address] [place] [address], [place] [id number] 18 Mar, 2011 [facility] [address] [id number] [address] [place] [address], [place] [address] Mar, [facility] [address] [id number] [address] [place] [address], [place] [address] Dec, [facility] [address] [id number] [address] [place] [address], [place] [address] October, [facility] [address] [id number] [address] [place] [address], [place] [address] May, [facility] [address] [id number] [address] [place] [address], [place] [address] May, [facility] [address] [id number] [address] [place] [address], [place] [address] May, [facility] [address] [id number] [address] [place] [address], [place] [address] 06 May, 2010 [facility] [address] [id number] [address] [place] [address], [place] [address] Mar, [facility] [address] [id number] [address] [place] [address], [place] [address] Mar, [facility] [address] [id number] [address] [place] [id number] May, [facility] [address] [id number] [address] [place] [id number] May, [facility] [address] [id number] [address] [place] [address] May, [facility] [address] [id number] [address] [place] [address] May, [facility] [address] [id number] [address] [place] [address] Apr, [facility] [address] [facility] [id number] [address] [place] [address] Apr, [facility] [address] [facility] [id number] [address] [place] [address] October, IMMUNIZATIONS No Known Immunizations SOCIAL HISTORY Never Assessed REASON FOR VISIT f/u PLAN OF CARE Activity Details Follow Up Next available Reason: VITAL SIGNS MEDICATIONS Unknown Medications RESULTS No Results PROCEDURES Procedure Date Ordered Result Body Site Psychotherapy, patient &/family, 30 minutes, established pat ient September 05, 2018 INSTRUCTIONS MEDICATIONS ADMINISTERED No Known Medications [...]
--- OUTSIDE RECORDS SUMMARY | 2020-01-13 11:41 | XMS REPORT ---
Author Author Monique GRAJEDA [facility] Address [address] [place] [address] Care Team Providers Care Electro Mechanical Technician Name Role Phone ARIAS RGAJEDA Unavailable PROBLEMS Type Condition ICD9-CM Code CVG50-ML Code Onset Dates Condition S tatus SNOMED Code Problem History of illicit drug use Z87.898 Ac tive 808684228 Problem Snoring R06.83 Active 50748277 Problem Impaired circulation I99.9 Active 35411930 Problem MRSA (methicillin resistant staph aureus) culture positive Z22.322 Active 066132606 Problem Panic disorder without agoraphobia F41.0 Active 59472754 Problem Dysthymic disorder F34.1 Active 7 4318887 Problem Mood disorder F39 Active 273331 05 Problem Arthritis M19.90 Active 3885462 Problem Mild chronic obstructive pulmonary disease J44.9 Active 430859730 Problem Mild persistent asthma without complication J45.30 Active 829230400 Problem Essential hypertension I10 Active 36858746 Problem On home oxygen therapy Z99.81 Active 614582160611 Problem 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 Active 791309 02 Problem Neuropathy G62.9 Active 907464831 Problem 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 Active 310654909 Problem Major depressive disorder, recurrent episode, moderate F33.1 Active 944549181 Problem Psychotic disorder F29 Active 6 5071042 Problem Hypertension, benign I10 Active 01122679 Problem Onychomycosis B35.1 Active 124633 008 Problem Body mass index (BMI) 40.0-44.9, adult Z68.41 Active 001767577 Problem Varicose veins of both lower extremities I83.93 Active 47794771 Problem Sciatica, left side M54.32 Active 06148294 Problem Agoraphobia F40.00 Active 40028048 Problem Fatigue R53.83 Active 18087922 Problem Major depressive disorder in full remission F32.5 Active 87557292 Problem Slow transit constipation K59.01 Acti ve 88776110 Problem Chronic obstructive pulmonary disease, unspecified COPD ty pe J44.9 Active 77805868 Problem Unspecified psychosis not du e to a substance or known physiological condition F29 Active 840051286 ALLERGIES No Information ENCOUNTERS Encounter Location Date Diagnosis [place] [address] [place] [address] Nov, [place] [address] [address] [facility] [id number] [address] [place] [address] October, [place] [address] [address] [facility] [id number] [address] [place] [address] Sep, [id number] [place] [address] Sep, [place] [address] [place] [id number] [place] [address] Sep, Abdominal pain, right upper quadrant R10.11 [place] [address] [place] [id number] [address] [place] [address] 06 Sep, 2019 Major depressive disorder, r ecurrent episode, moderate F33.1 ; Panic disorder without agoraphobia F41.0 and Morbid obesity E66.01 [place] [address] [place] [id number] [address] [place] [address] Aug, Bronchitis J40 [place] [address] [place] [id number] [address] [place] [address] Aug, Sciatica, left side M54.32 a nd Morbid obesity E66.01 [place] [address] [facility] [id number] [address] [place] [address] Aug, [place] [address] [place] [id number] [address] [place] [address] Aug, Sciatica, left side M54.32 [place] [address] [facility] [id number] [address] [place] [address] Aug, Neuropathy G62.9 ; Onychomyc osis B35.1 ; Callus of foot L84 and Skin fissures R23.4 [place] [address] [place] [address] Jul, [place] [address] [place] [id number] [address] [place] [address] Jul, Morbid obesity E66.01 [place] [address] [address] Jul, Unspecified psychosis not du e to a substance or known physiological condition F29 ; Chronic obstructive pulmonary disease, unspecified COPD type J44.9 and Body mass index (BMI) 40.0-44.9, adult Z68.41 [place] [address] [address] Jun, [place] [address] [address] Jun, Morbid obesity E66.01 [place] [address] [address] May, Morbid obesity E66.01 [place] [address] [address] May, Encounter for immunization Z 23 [place] [address] [place] [id number] [place] [address] May, Major depressive disorder, r ecurrent episode, moderate F33.1 ; Panic disorder without agoraphobia F41.0 and Morbid obesity E66.01 [place] [address] [place] [address] May, Major depressive disorder in full remission F32.5 and Panic disorder without agoraphobia F41.0 [place] [address] [place] [id number] [address] [place] [address] Apr, Morbid obesity E66.01 [place] [address] [address] Apr, Slow transit constipation K5 9.01 and Cellulitis of left lower extremity L03.116 [place] [address] [address] Apr, Morbid obesity E66.01 [place] [address] [place] [id number] [address] [place] [address] Apr, [place] [address] [address] Apr, Major depressive disorder, r ecurrent episode, moderate F33.1 and Panic disorder without agoraphobia F41.0 [place] [address] [address] Mar, Viral upper respiratory trac t infection J06.9 [place] [address] [address] Mar, Bronchitis J40 and Encounter for immunization Z23 [place] [address] [address] Mar, Morbid obesity E66.01 [place] [address] [address] Feb, Major depressive disorder, r ecurrent episode, moderate F33.1 and Panic disorder without agoraphobia F41.0 [place] [address] [address] Feb, Morbid obesity E66.01 [place] [address] [place] [id number] [place] [address] 06 Feb, 2019 Onychomycosis B35.1 ; 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 and Xerosis of skin L85.3 [place] [address] [place] [id number] [address] [place] [address] Feb, Major depressive disorder, r ecurrent episode, moderate F33.1 ; Panic disorder without agoraphobia F41.0 and Morbid obesity E66.01 [facility] [address] [facility] [id number] [address] [place] [address] Jan, Major depressive disorder in full remission F32.5 and Panic disorder without agoraphobia F41.0 [facility] [address] [facility] [id number] [address] [place] [address] Jan, Pneumonia of both lower lobe s due to infectious organism J18.1 and Morbid obesity E66.01 [facility] [address] [facility] [id number] [address] [place] [phone] Jan, [facility] [address] [facility] [id number] [address] [place] [address] Jan, Major depressive disorder in full remission F32.5 and Panic disorder without agoraphobia F41.0 [facility] [address] [facility] [id number] [address] [place] [phone] Jan, [facility] [address] [facility] [id number] [address] [place] [address] Jan, Major depressive disorder, r ecurrent episode, moderate F33.1 ; Panic disorder without agoraphobia F41.0 and Morbid obesity E66.01 [facility] [address] [facility] [id number] [address] [place] [address] Dec, Bilious vomiting with nausea R11.14 ; Coughing R05 and Choking, subsequent encounter T17.308D [facility] [address] [facility] [id number] [address] [place] [address] Dec, Morbid obesity E66.01 [facility] [address] [facility] [id number] [address] [place] [address] Dec, Major depressive disorder, r ecurrent episode, moderate F33.1 and Panic disorder without agoraphobia F41.0 [facility] [address] [facility] [id number] [address] [place] [address] Dec, [facility] [address] [facility] [id number] [address] [place] [address] Dec, Major depressive disorder, r ecurrent episode, moderate F33.1 [place] [address] [facility] [id number] [address] [place] [address] Nov, Major depressive disorder, r ecurrent episode, moderate F33.1 ; Panic disorder without agoraphobia F41.0 and Morbid obesity E66.01 [place] [address] [place] [id number] [place] [address] Nov, Morbid obesity E66.01 [place] [address] [place] [id number] [address] [place] [address] Nov, Major depressive disorder, r ecurrent episode, moderate F33.1 and Panic disorder without agoraphobia F41.0 [facility] [address] [place] [id number] [address] [place] [address] Nov, Allergic reaction, initial e ncounter T78.40XA and Morbid obesity E66.01 [place] [address] [place] [address] Nov, [place] [address] [address] Nov, Morbid obesity E66.01 ; Swal lowing problem R13.10 and Hypertension, benign I10 [facility] [address] [place] [id number] [place] [address] Nov, Morbid obesity E66.01 ; COPD exacerbation J44.1 and Non- recurrent acute suppurative otitis media of left ear without spontaneous rupture of tympanic membrane H66.002 [place] [address] [place] [id number] [address] [place] [address] 07 Nov, 2018 Onychomycosis B35.1 ; Neurop athy G62.9 and Fissure in skin of foot R23.4 [place] [address] [place] [id number] [address] [place] [address] October, Major depressive disorder, r ecurrent episode, moderate F33.1 ; Panic disorder without agoraphobia F41.0 and Morbid obesity E66.01 [facility] [address] [id number] [address] [place] [address] October, Viral upper respiratory trac t infection J06.9 [facility] [address] [id number] [address] [place] [phone] October, [facility] [address] [facility] [id number] [address] [place] [address] October, Major depressive disorder, r ecurrent episode, moderate F33.1 and Panic disorder without agoraphobia F41.0 [facility] [address] [id number] [address] [place] [address] October, [facility] [address] [facility] [id number] [address] [place] [address] October, [facility] [address] [facility] [id number] [address] [place] [address] October, [facility] [address] [id number] [address] [place] [id number] October, [facility] [address] [facility] [id number] [address] [place] [id number] October, [facility] [address] [facility] [id number] [address] [place] [address] October, [facility] [address] [facility] [id number] [address] [place] [address] October, Major depressive disorder, r ecurrent episode, moderate F33.1 and Panic disorder without agoraphobia F41.0 [facility] [address] [id number] [address] [place] [address] Sep, Morbid obesity E66.01 and Vane mbar neuritis M54.16 [facility] [address] [id number] [address] [place] [address] Sep, Panic disorder without agora phobia F41.0 and Major depressive disorder, recurrent episode, moderate F33.1 [facility] [address] [facility] [id number] [address] [place] [address] Sep, Gastroenteritis K52.9 ; Low back pain M54.5 ; Other chronic pain G89.29 and Morbid obesity E66.01 [facility] [address] [place] [address] Sep, Major depressive disorder, r ecurrent episode, moderate F33.1 ; Panic disorder without agoraphobia F41.0 and 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 [place] [address] [address] Sep, Panic disorder without agora phobia F41.0 [facility] [address] [address] Sep, Panic disorder without agora phobia F41.0 [facility] [address] [address] Aug, Panic disorder without agora phobia F41.0 ; Major depressive disorder, recurrent episode, moderate F33.1 ; 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 ; Psychotic disorder F29 ; Tardive dyskinesia G24.01 and Morbid obesity E66.01 [facility] [address] [place] [id number] [address] [place] [address] Aug, Dysthymic disorder F34.1 and Psychotic disorder F29 [place] [address] [address] Aug, Encounter for Medicare annua l wellness exam Z00.00 ; Morbid obesity E66.01 and 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 [place] [address] [place] [id number] [address] [place] [address] Aug, Dysthymic disorder F34.1 and Psychotic disorder F29 [facility] [address] [place] [id number] [address] [place] [address] Aug, Neuropathy G62.9 ; Onychomyc osis B35.1 and Xerosis of skin L85.3 [place] [address] [address] Jul, [place] [address] [address] Jul, Mood disorder F39 ; Wheezing R06.2 ; Choking, initial encounter T17.308A and Coughing R05 [place] [address] [address] Jul, Low back pain M54.5 [facility] [address] [address] Jun, Flu-like symptoms R68.89 ; B CO 45.0-49.9, adult Z68.42 ; COPD exacerbation J44.1 and Acute bronchitis J20.9 [place] [address] [address] Jun, [place] [address] [address] May, [place] [address] [address] May, Onychomycosis B35.1 and Type 2 diabetes mellitus with diabetic neuropathic arthropathy E11.610 [place] [address] [address] May, Low back pain M54.5 and Abdoulaye a leg R60.0 [place] [address] [address] May, BMI 45.0-49.9, adult Z68.42 ; Well woman exam with routine gynecological exam Z01.419 and Breast cancer screening Z12.31 [place] [address] [place] [id number] [address] [place] [address] Apr, Arthritis M19.90 [place] [address] [address] 16 Apr, 2018 Arthritis M19.90 and Otalgia of both ears H92.03 [place] [address] [address] Feb, [place] [address] [address] 28 Feb, 2018 Low back pain M54.5 ; Other chronic pain G89.29 ; Exertional asthma J45.990 and Encounter for immunization Z23 [place] [address] [address] 21 Feb, 2018 Skin fissures R23.4 ; Neurop athy G62.9 and Onychomycosis B35.1 [place] [address] [address] 05 Feb, 2018 Dysthymic disorder F34.1 [place] [address] [address] 04 Feb, 2018 [place] [address] [address] Jan, [place] [address] [address] Jan, Abrasion of right elbow, ini tial encounter S50.311A ; Abrasion, right knee, initial encounter S80.211A and Sprain of other ligament of right ankle, initial encounter S93.491A [place] [address] [address] Jan, [facility] [address] [place] [id number] [address] [place] [address] Jan, Injury of left ankle, initia l encounter S99.912A ; Fall down stairs, initial encounter W10.8XXA and BMI 45.0-49.9, adult Z68.42 [place] [address] [place] [id number] [address] [place] [address] Jan, COPD exacerbation J44.1 [facility] [address] [facility] [id number] [address] [place] [address] Jan, 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 [facility] [address] [facility] [id number] [address] [place] [address] Jan, Bronchitis J40 and Acute sup purative otitis media of left ear without spontaneous rupture of tympanic membrane, recurrence not specified H66.002 [facility] [address] [place] [id number] [address] [place] [address] Jan, [place] [address] [place] [id number] [address] [place] [address] Jan, Bronchitis J40 and BMI 40.0- 44.9, adult Z68.41 [place] [address] [place] [id number] [address] [place] [address] Jan, [place] [address] [place] [id number] [address] [place] [address] Dec, Gastric pain R10.9 [place] [address] [facility] [id number] [address] [place] [address] Dec, [facility] [address] [place] [id number] [address] [place] [address] Dec, History of illicit drug use Z87.898 ; Neuropathy G62.9 ; COPD (chronic obstructive pulmonary disease) with chronic bronchitis J44.9 and Acute pain of right knee M25.561 [facility] [address] [place] [id number] [address] [place] [address] Nov, [place] [address] [place] [id number] [address] [place] [address] Nov, Onychomycosis B35.1 and Cont usion of left foot, subsequent encounter S90.32XD [facility] [address] [place] [id number] [address] [place] [address] Nov, COPD exacerbation J44.1 [place] [address] [place] [id number] [address] [place] [address] Sep, [place] [address] [address] 30 Sep, 2017 Dysthymic disorder F34.1 ; T obacco abuse Z72.0 ; Pain in right knee M25.561 ; Pain in left knee M25.562 ; Other chronic pain G89.29 and BMI 40.0- 44.9, adult Z68.41 [place] [address] [address] Aug, Major depressive disorder, r ecurrent episode, moderate F33.1 and 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 [place] [address] [address] 14 Aug, 2017 Dysthymic disorder F34.1 ; N on-pressure chronic ulcer of left thigh, unspecified ulcer stage L97.129 ; Tobacco abuse Z72.0 ; Mild chronic obstructive pulmonary disease J44.9 and Forgetfulness R68.89 [place] [address] [place] [id number] [address] [place] [address] 09 Aug, 2017 Onychomycosis B35.1 ; Fissur e in skin of foot R23.4 and Foot callus L84 [facility] [place] [id number] [place] [address] 26 Jul, 2017 Right medial knee pain M25.5 61 ; Upper respiratory tract infection, unspecified type J06.9 and BMI 40.0-44.9, adult Z68.41 [facility] [place] [id number] [place] [address] 08 Jul, 2017 Nausea and vomiting, intract ability of vomiting not specified, unspecified vomiting type R11.2 ; Left ear pain H92.02 and Gastric pain R10.9 [place] [address] [place] [id number] [place] [address] 17 Apr, 2017 Encounter for immunization Z 23 [place] [address] [place] [id number] [address] [place] [address] Apr, Onychomycosis B35.1 ; Xerosi s of skin L85.3 ; Neuropathy G62.9 and 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 [facility] [address] [facility] [id number] [address] [place] [address] Jan, Onychomycosis B35.1 and Neur opathy G62.9 [facility] [address] [id number] [address] [place] [address] Dec, [facility] [address] [id number] [address] [place] [address] Dec, [facility] [address] [facility] [id number] [address] [place] [address] Nov, [facility] [address] [facility] [id number] [address] [place] [address] Aug, [facility] [address] [facility] [id number] [address] [place] [address] Aug, [facility] [address] [facility] [id number] [address] [place] [address] Jul, [facility] [address] [facility] [id number] [address] [place] [address] Jul, [facility] [address] [facility] [id number] [address] [place] [address] Jul, Decubitus ulcer of left thig h, stage 2 L89.892 [facility] [address] [id number] [address] [place] [address] Jul, Decubitus ulcer of left thig h, stage 2 L89.892 [facility] [address] [facility] [id number] [address] [place] [address] Jul, [facility] [address] [facility] [id number] [address] [place] [address] Jul, Decubitus ulcer of left thig h, stage 2 L89.892 [facility] [address] [id number] [address] [place] [id number] 14 Jul, 2016 [facility] [address] [id number] [address] [place] [phone] 13 Jul, 2016 Cellulitis of other specifie d site L03.818 ; Illicit drug use F19.90 and Decubitus ulcer of left thigh, stage 2 L89.892 [facility] [address] [id number] [address] [place] [phone] 08 Jul, 2016 [facility] [address] [id number] [address] [place] [phone] 06 Jul, 2016 Cellulitis of right breast N 61.0 [facility] [address] [facility] [id number] [address] [place] [phone] Jun, [facility] [address] [facility] [id number] [address] [place] [id number] Jun, [facility] [address] [facility] [id number] [address] [place] [phone] Jun, Wheezing R06.2 and Arthralgi a, unspecified joint M25.50 [facility] [address] [facility] [id number] [address] [place] [phone] May, [facility] [address] [facility] [id number] [address] [place] [phone] May, [facility] [address] [facility] [id number] [address] [place] [phone] May, [facility] [address] [facility] [id number] [address] [place] [id number] May, Shortness of breath R06.02 [facility] [address] [facility] [id number] [address] [place] [id number] May, Onychomycosis B35.1 and Fiss ure in skin of foot R23.4 [facility] [address] [id number] [address] [place] [phone] 28 Apr, 2016 [facility] [address] [id number] [address] [place] [phone] 18 Apr, 2016 Dizziness R42 [facility] [address] [id number] [address] [place] [id number] 14 Apr, 2016 Shortness of breath R06.02 ; Essential hypertension I10 ; Dizziness R42 and On home oxygen therapy Z99.81 [facility] [address] [id number] [address] [place] [id number] 10 Apr, 2016 [facility] [address] [id number] [address] [place] [id number] 08 Apr, 2016 [facility] [address] [id number] [address] [place] [id number] Apr, [facility] [address] [id number] [address] [place] [id number] Apr, [facility] [address] [id number] [address] [place] [phone] Apr, [facility] [address] [id number] [address] [place] [id number] Apr, [facility] [address] [id number] [address] [place] [id number] Apr, [facility] [address] [id number] [address] [place] [id number] Mar, Mild chronic obstructive pul monary disease J44.9 [facility] [address] [id number] [address] [place] [id number] Mar, [facility] [address] [facility] [id number] [address] [place] [phone] Mar, Epigastric pain R10.13 ; Low back pain M54.5 ; Other chronic pain G89.29 and Breast cancer screening Z12.39 [facility] [address] [id number] [address] [place] [id number] Mar, [facility] [address] [facility] [id number] [address] [place] [id number] Mar, [facility] [address] [facility] [id number] [address] [place] [id number] Feb, [facility] [address] [facility] [id number] [address] [place] [id number] Feb, [facility] [address] [facility] [id number] [address] [place] [id number] Feb, Fissure in skin of foot R23. 4 and Onychomycosis B35.1 [facility] [address] [id number] [address] [place] [id number] Jan, Agoraphobia F40.00 [place] [address] [address] [id number] [place] [phone] Dec, Agoraphobia F40.00 [facility] [address] [id number] [address] [place] [phone] Dec, Mild persistent asthma witho ut complication J45.30 ; Dysthymic disorder F34.1 and Upper respiratory tract infection, unspecified type J06.9 [place] [address] [place] [id number] [address] [place] [id number] Nov, Agoraphobia F40.00 [facility] [address] [id number] [address] [place] [id number] October, Agoraphobia F40.00 [facility] [address] [id number] [address] [place] [phone] Sep, Panic disorder without agora phobia F41.0 ; Agoraphobia F40.00 and Dysthymic disorder F34.1 [facility] [address] [id number] [address] [place] [phone] Sep, Panic attacks F41.0 [facility] [address] [place] [address] [id number] [address] [place] [id number] Sep, [place] [address] [address] Sep, Panic disorder without agora phobia F41.0 ; Varicose veins of both lower extremities I83.93 and Fatigue R53.83 [place] [address] [address] Sep, Fatigue R53.83 [place] [address] [id number] Sep, [place] [address] [address] Aug, [place] [address] [address] Aug, [place] [address] [address] Aug, Type 2 diabetes mellitus wit h diabetic neuropathic arthropathy E11.610 [place] [address] [address] Aug, Panic disorder without agora phobia F41.0 ; Agoraphobia F40.00 and Dysthymic disorder F34.1 [place] [address] [address] Aug, Shortness of breath R06.02 ; Panic attacks F41.0 ; COPD (chronic obstructive pulmonary disease) J44.9 ; Tobacco abuse Z72.0 ; Family history of diabetes mellitus Z83.3 and Weight gain R63.5 [place] [address] [address] Aug, [place] [address] [place] [id number] [address] [place] [phone] Jul, [place] [address] [address] Jun, Onychomycosis B35.1 ; Neurop athy G62.9 and Impaired circulation I99.9 [facility] [address] [id number] [address] [place] [id number] Mar, Fissure in skin of foot R23. 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 [facility] [id number] [place] [id number] 18 Feb, 2015 Family history of coronary a rteriosclerosis V17.3 [place] [address] [place] [id number] [address] [place] [id number] 15 Feb, 2015 Allergic rhinitis due to darien agnieszka 477.0 ; Unspecified breast screening V76.10 ; Anxiety 300.00 and Family history of coronary arteriosclerosis V17.3 [place] [address] [place] [id number] [address] [place] [id number] Jan, [facility] [address] [id number] [address] [place] [phone] Dec, [facility] [address] [id number] [address] [place] [phone] Dec, Onychomycosis 110.1 and Skin fissures 709.8 [facility] [address] [address] [id number] [address] [place] [id number] Sep, [facility] [address] [id number] [address] [place] [phone] Sep, [facility] [address] [id number] [address] [place] [id number] Aug, [facility] [address] [id number] [address] [place] [phone] Aug, [facility] [address] [id number] [address] [place] [id number] Jul, [facility] [address] [id number] [address] [place] [id number] Jul, [facility] [address] [id number] [address] [place] [address], [place] [address] Jun, [facility] [address] [id number] [address] [place] [address], [place] [address] Jun, [facility] [address] [id number] [address] [place] [address], [place] [address] Jun, [facility] [address] [id number] [address] [place] [address], [place] [address] Jun, [facility] [address] [id number] [address] [place] [address], [place] [address] Jun, [facility] [address] [id number] [address] [place] [address], [place] [address] May, [facility] [address] [id number] [address] [place] [address], [place] [address] May, [facility] [address] [id number] [address] [place] [address], [place] [address] May, [facility] [address] [id number] [address] [place] [address], [place] [address] May, [facility] [address] [id number] [address] [place] [address], [place] [address] May, [facility] [address] [id number] [address] [place] [address], [place] [address] May, [facility] [address] [id number] [address] [place] [address], [place] [address] May, [facility] [address] [id number] [address] [place] [address], [place] [address] May, [facility] [address] [id number] [address] [place] [address], [place] [address] Apr, [facility] [address] [id number] [address] [place] [address], [place] [address] Apr, [facility] [address] [id number] [address] [place] [address], [place] [address] Apr, [facility] [address] [id number] [address] [place] [address], [place] [address] Apr, [facility] [address] [id number] [address] [place] [address], [place] [address] Apr, [facility] [address] [id number] [address] [place] [address], [place] [address] Apr, [facility] [address] [id number] [address] [place] [address], [place] [address] Apr, [facility] [address] [id number] [address] [place] [address], [place] [address] Apr, [facility] [address] [id number] [address] [place] [address], [place] [address] Apr, [facility] [address] [id number] [address] [place] [address], [place] [address] Apr, [facility] [address] [id number] [address] [place] [address], [place] [address] Mar, [facility] [address] [id number] [address] [place] [address], [place] [address] Mar, [facility] [address] [id number] [address] [place] [address], [place] [address] Mar, [facility] [address] [id number] [address] [place] [address], [place] [address] Mar, [facility] [address] [id number] [address] [place] [address], [place] [address] Mar, [facility] [address] [id number] [address] [place] [address], [place] [address] Mar, [facility] [address] [id number] [address] [place] [address], [place] [address] Mar, [facility] [address] [id number] [address] [place] [address], [place] [address] Mar, [facility] [address] [id number] [address] [place] [address], [place] [address] Mar, [facility] [address] [id number] [address] [place] [address], [place] [address] Mar, [facility] [address] [id number] [address] [place] [address], [place] [address] Mar, [facility] [address] [id number] [address] [place] [address], [place] [address] Mar, [facility] [address] [id number] [address] [place] [address], [place] [address] Mar, [facility] [address] [id number] [address] [place] [address], [place] [address] Mar, [facility] [address] [id number] [address] [place] [address], [place] [address] Mar, [facility] [address] [id number] [address] [place] [address], [place] [address] 20 Mar, 2014 [facility] [address] [id number] [address] [place] [address], [place] [address] 20 Mar, 2014 [facility] [address] [id number] [address] [place] [address], [place] [address] 16 Mar, 2014 [facility] [address] [id number] [address] [place] [address], [place] [address] 16 Mar, 2014 [facility] [address] [id number] [address] [place] [address], [place] [address] 15 Mar, 2014 [facility] [address] [id number] [address] [place] [address], [place] [address] 14 Mar, 2014 [facility] [address] [id number] [address] [place] [address], [place] [address] 14 Mar, 2014 [facility] [address] [id number] [address] [place] [address], [place] [address] 14 Mar, 2014 [facility] [address] [id number] [address] [place] [address], [place] [address] 14 Mar, 2013 [facility] [address] [id number] [address] [place] [address], [place] [address] 09 Mar, 2013 [facility] [address] [id number] [address] [place] [address], [place] [address] Mar, 2013 [facility] [address] [id number] [address] [place] [address], [place] [address] Mar, 2013 [facility] [address] [id number] [address] [place] [address], [place] [address] Mar, 2013 [facility] [address] [id number] [address] [place] [address], [place] [address] 30 Sep, 2013 [facility] [address] [id number] [address] [place] [address], [place] [address] 30 Sep, 2013 [facility] [address] [id number] [address] [place] [address], [place] [address] 30 Sep, 2013 [facility] [address] [id number] [address] [place] [address], [place] [address] 30 Sep, 2013 [facility] [address] [id number] [address] [place] [address], [place] [address] 26 Sep, 2013 [facility] [address] [id number] [address] [place] [address], [place] [address] 26 Sep, 2013 [facility] [address] [id number] [address] [place] [address], [place] [address] 09 Sep, 2013 [facility] [address] [id number] [address] [place] [id number] 09 Sep, 2013 [facility] [address] [id number] [address] [place] [address], [place] [address] 03 Sep, 2013 [facility] [address] [id number] [address] [place] [address], [place] [address] 03 Sep, 2013 [facility] [address] [id number] [address] [place] [address], [place] [address] 03 Sep, 2013 [facility] [address] [id number] [facility] [place] [address] Feb, [facility] [address] [id number] [address] [place] [address], [place] [address] Jan, [facility] [address] [id number] [address] [place] [address], [place] [address] Jan, [facility] [address] [id number] [address] [place] [address], [place] [address] Jan, [facility] [address] [id number] [address] [place] [address], [place] [address] Jan, [facility] [address] [id number] [address] [place] [address], [place] [address] Jan, [facility] [address] [id number] [address] [place] [address], [place] [address] Jan, [facility] [address] [id number] [address] [place] [address], [place] [address] Jan, [facility] [address] [id number] [address] [place] [address], [place] [address] Jan, [facility] [address] [id number] [address] [place] [address], [place] [address] Jan, [facility] [address] [id number] [address] [place] [address], [place] [address] Jan, [facility] [address] [id number] [address] [place] [address], [place] [address] Jan, [facility] [address] [id number] [address] [place] [address], [place] [address] Jan, [facility] [address] [id number] [address] [place] [address], [place] [address] Jan, [facility] [address] [id number] [address] [place] [address], [place] [address] Dec, [facility] [address] [id number] [address] [place] [address], [place] [address] Dec, [facility] [address] [id number] [facility] [place] [address] Dec, 2013 [facility] [address] [id number] [address] [place] [address], [place] [address] Dec, [facility] [address] [id number] [address] [place] [address], [place] [address] Dec, 2013 [facility] [address] [id number] [address] [place] [address], [place] [address] Dec, 2013 [facility] [address] [id number] [address] [place] [address], [place] [address] Dec, [facility] [address] [id number] [address] [place] [address], [place] [address] Dec, 2013 [facility] [address] [id number] [address] [place] [address], [place] [address] Dec, [facility] [address] [id number] [address] [place] [address], [place] [address] Dec, [facility] [address] [id number] [address] [place] [address], [place] [address] Dec, [facility] [address] [id number] [address] [place] [address], [place] [address] Dec, 2013 [facility] [address] [id number] [address] [place] [address], [place] [address] Dec, 2013 [facility] [address] [id number] [address] [place] [address], [place] [address] Dec, [facility] [address] [id number] [address] [place] [address], [place] [address] Dec, 2013 [facility] [address] [id number] [address] [place] [address], [place] [address] Dec, 2013 [facility] [address] [id number] [address] [place] [address], [place] [address] Dec, 2013 [facility] [address] [id number] [address] [place] [address], [place] [address] 08 Dec, 2013 [facility] [address] [id number] [facility] [place] [address] Nov, [facility] [address] [id number] [address] [place] [address], [place] [address] Nov, [facility] [address] [id number] [address] [place] [address], [place] [address] Nov, [facility] [address] [id number] [address] [place] [address], [place] [address] Nov, [facility] [address] [id number] [address] [place] [address], [place] [address] Nov, [facility] [address] [id number] [address] [place] [address], [place] [address] Nov, [facility] [address] [id number] [address] [place] [address], [place] [address] Nov, [facility] [address] [id number] [address] [place] [address], [place] [address] Nov, [facility] [address] [id number] [address] [place] [address], [place] [address] Nov, [facility] [address] [id number] [address] [place] [address], [place] [address] Nov, [facility] [address] [id number] [address] [place] [address], [place] [address] Nov, [facility] [address] [id number] [address] [place] [address], [place] [address] Nov, [facility] [address] [id number] [address] [place] [address], [place] [address] Nov, [facility] [address] [id number] [address] [place] [address], [place] [address] Nov, [facility] [address] [id number] [address] [place] [address], [place] [address] Nov, [facility] [address] [id number] [facility] [place] [address] Nov, [facility] [address] [id number] [facility] [place] [address] Nov, [facility] [address] [id number] [address] [place] [address], [place] [address] Nov, [facility] [address] [id number] [address] [place] [address], [place] [address] Nov, [facility] [address] [id number] [address] [place] [address], [place] [address] Nov, [facility] [address] [id number] [address] [place] [address], [place] [address] October, [facility] [address] [id number] [address] [place] [address], [place] [address] October, [facility] [address] [id number] [address] [place] [address], [place] [address] October, [facility] [address] [id number] [address] [place] [address], [place] [address] October, [facility] [address] [id number] [address] [place] [address], [place] [address] Sep, [facility] [address] [id number] [address] [place] [address], [place] [address] Sep, [facility] [address] [id number] [address] [place] [address], [place] [address] Sep, [facility] [address] [id number] [address] [place] [address], [place] [address] Sep, [facility] [address] [id number] [address] [place] [address], [place] [address] Sep, [facility] [address] [id number] [address] [place] [address], [place] [address] Sep, [facility] [address] [id number] [address] [place] [address], [place] [address] Sep, [facility] [address] [id number] [facility] [place] [address] Sep, [facility] [address] [id number] [address] [place] [address], [place] [address] Sep, [facility] [address] [id number] [address] [place] [address], [place] [address] Aug, [facility] [address] [id number] [address] [place] [address], [place] [address] Aug, [facility] [address] [id number] [address] [place] [address], [place] [address] Aug, [facility] [address] [id number] [address] [place] [address], [place] [address] Aug, [facility] [address] [id number] [address] [place] [address], [place] [address] Aug, [facility] [address] [id number] [address] [place] [address], [place] [address] Aug, [facility] [address] [id number] [address] [place] [address], [place] [address] Aug, [facility] [address] [id number] [address] [place] [address], [place] [address] Aug, [facility] [address] [id number] [address] [place] [address], [place] [address] Jul, [facility] [address] [id number] [address] [place] [address], [place] [address] Jul, [facility] [address] [id number] [address] [place] [address], [place] [address] Jun, [facility] [address] [id number] [address] [place] [address], [place] [address] Jun, [facility] [address] [id number] [address] [place] [address], [place] [address] Jun, [facility] [address] [id number] [address] [place] [address], [place] [address] Jun, [facility] [address] [id number] [address] [place] [address], [place] [address] Jun, [facility] [address] [id number] [address] [place] [address], [place] [address] Jun, [facility] [address] [id number] [address] [place] [address], [place] [address] Jun, [facility] [address] [id number] [address] [place] [address], [place] [address] Jun, [facility] [address] [id number] [address] [place] [address], [place] [address] Jun, [facility] [address] [id number] [address] [place] [address], [place] [address] Jun, [facility] [address] [id number] [address] [place] [address], [place] [address] Jun, [facility] [address] [id number] [address] [place] [address], [place] [address] Jun, [facility] [address] [id number] [address] [place] [address], [place] [address] May, [facility] [address] [id number] [address] [place] [address], [place] [address] May, [facility] [facility] [address] [id number] [address] [place] [address], [place] [address] May, [facility] [address] [id number] [address] [place] [address], [place] [address] May, [facility] [address] [id number] [address] [place] [address], [place] [address] May, [facility] [address] [id number] [address] [place] [address], [place] [address] May, [facility] [address] [id number] [address] [place] [address], [place] [address] May, [facility] [address] [id number] [address] [place] [address], [place] [address] May, [facility] [address] [id number] [address] [place] [address], [place] [address] May, [facility] [address] [id number] [address] [place] [address], [place] [address] May, [facility] [address] [id number] [address] [place] [address], [place] [address] May, [facility] [address] [id number] [address] [place] [address], [place] [address] May, [facility] [address] [id number] [address] [place] [address], [place] [address] May, [facility] [address] [id number] [address] [place] [address], [place] [address] Apr, [facility] [address] [id number] [address] [place] [address], [place] [address] Apr, [facility] [address] [id number] [address] [place] [address], [place] [address] Mar, [facility] [address] [id number] [address] [place] [address], [place] [address] Mar, [facility] [address] [id number] [address] [place] [address], [place] [address] 24 Feb, 2013 [facility] [address] [id number] [address] [place] [id number] Feb, [facility] [address] [id number] [address] [place] [address], [place] [address] 05 Feb, 2013 [facility] [address] [id number] [address] [place] [address], [place] [address] 04 Feb, 2013 [facility] [address] [id number] [address] [place] [address], [place] [address] Jan, [facility] [address] [id number] [address] [place] [id number] Jan, [facility] [address] [id number] [address] [place] [address], [place] [address] Jan, [facility] [address] [id number] [address] [place] [address], [place] [address] Jan, [facility] [address] [id number] [address] [place] [address], [place] [address] Jan, [facility] [address] [id number] [address] [place] [address], [place] [address] Jan, [facility] [address] [id number] [address] [place] [address], [place] [address] Dec, [facility] [address] [id number] [address] [place] [address], [place] [address] Dec, [facility] [address] [id number] [address] [place] [address], [place] [address] Dec, [facility] [address] [id number] [address] [place] [address], [place] [address] Dec, [facility] [address] [id number] [address] [place] [address], [place] [address] Nov, [facility] [address] [id number] [address] [place] [address], [place] [address] October, [facility] [address] [id number] [address] [place] [address], [place] [address] October, [facility] [address] [id number] [address] [place] [address], [place] [address] October, [facility] [address] [id number] [address] [place] [address], [place] [address] Sep, [facility] [address] [id number] [address] [place] [address], [place] [address] Sep, [facility] [address] [id number] [address] [place] [address], [place] [address] Jun, [facility] [address] [id number] [address] [place] [address], [place] [address] Jun, [facility] [address] [id number] [address] [place] [address], [place] [address] Jun, [facility] [address] [id number] [address] [place] [address], [place] [address] Apr, [facility] [address] [id number] [address] [place] [address], [place] [address] Apr, [facility] [address] [id number] [address] [place] [address], [place] [address] Apr, [facility] [address] [id number] [address] [place] [address], [place] [address] Apr, [facility] [address] [id number] [address] [place] [address], [place] [address] Mar, [facility] [address] [id number] [address] [place] [address], [place] [address] Mar, [facility] [address] [id number] [address] [place] [address], [place] [address] Mar, [facility] [address] [id number] [address] [place] [address], [place] [address] Mar, [facility] [address] [id number] [address] [place] [address], [place] [id number] 29 Feb, 2012 [facility] [address] [id number] [address] [place] [address], [place] [address] 27 Feb, 2012 [facility] [address] [id number] [address] [place] [address], [place] [address] 20 Feb, 2012 [facility] [address] [id number] [address] [place] [address], [place] [address] 30 Jan, 2012 [facility] [address] [id number] [address] [place] [address], [place] [address] 16 Jan, 2012 [facility] [address] [id number] [address] [place] [address], [place] [address] Jan, [facility] [address] [id number] [address] [place] [address], [place] [address] Jan, [facility] [address] [id number] [address] [place] [address], [place] [address] Dec, [facility] [address] [id number] [address] [place] [address], [place] [address] Dec, [facility] [address] [id number] [address] [place] [address], [place] [address] Nov, [facility] [address] [id number] [address] [place] [address], [place] [address] Nov, [facility] [address] [id number] [address] [place] [address], [place] [address] October, [facility] [address] [id number] [address] [place] [address], [place] [address] October, [facility] [address] [id number] [address] [place] [address], [place] [address] October, [facility] [address] [id number] [address] [place] [address], [place] [address] Sep, [facility] [address] [id number] [address] [place] [address], [place] [address] Sep, [facility] [address] [id number] [address] [place] [address], [place] [address] Sep, [facility] [address] [id number] [address] [place] [address], [place] [address] Aug, [facility] [address] [id number] [address] [place] [address], [place] [address] Aug, [facility] [address] [id number] [address] [place] [address], [place] [address] Aug, [facility] [address] [id number] [address] [place] [address], [place] [address] Aug, [facility] [address] [id number] [address] [place] [address], [place] [address] 07 Aug, 2011 [facility] [address] [id number] [address] [place] [address], [place] [address] Jul, 2011 [facility] [address] [id number] [address] [place] [address], [place] [address] 16 Jul, 2011 [facility] [address] [id number] [address] [place] [address], [place] [address] Jul, 2011 [facility] [address] [id number] [address] [place] [address], [place] [address] Jul, [facility] [address] [id number] [address] [place] [address], [place] [address] Jul, [facility] [address] [id number] [address] [place] [address], [place] [address] Jul, [facility] [address] [id number] [address] [place] [address], [place] [address] Jul, [facility] [address] [id number] [address] [place] [address], [place] [address] Jul, [facility] [address] [id number] [address] [place] [address], [place] [address] Jun, [facility] [address] [id number] [address] [place] [address], [place] [address] Jun, [facility] [address] [id number] [address] [place] [address], [place] [address] May, [facility] [address] [id number] [address] [place] [address], [place] [address] May, [facility] [address] [id number] [address] [place] [address], [place] [address] May, [facility] [address] [id number] [address] [place] [address], [place] [address] May, [facility] [address] [id number] [address] [place] [address], [place] [address] Apr, [facility] [address] [id number] [address] [place] [address], [place] [address] Apr, [facility] [address] [id number] [address] [place] [address], [place] [address] Apr, [facility] [address] [id number] [address] [place] [address], [place] [address] 18 Mar, 2011 [facility] [address] [id number] [address] [place] [address], [place] [address] Mar, [facility] [address] [id number] [address] [place] [address], [place] [address] Mar, [facility] [address] [id number] [address] [place] [address], [place] [address] Mar, [facility] [address] [id number] [address] [place] [address], [place] [address] Dec, [facility] [address] [id number] [address] [place] [address], [place] [address] October, [facility] [address] [id number] [address] [place] [address], [place] [address] May, [facility] [address] [id number] [address] [place] [id number] May, [facility] [address] [id number] [address] [place] [address], [place] [address] May, [facility] [address] [id number] [address] [place] [id number] 06 May, 2010 [facility] [address] [id number] [address] [place] [address], [place] [address] Mar, [facility] [address] [id number] [address] [place] [address], [place] [address] Mar, [facility] [address] [id number] [address] [place] [address], [place] [address] 31 May, 2009 [facility] [address] [id number] [address] [place] [id number] May, [facility] [address] [facility] [id number] [address] [place] [id number] May, [facility] [address] [facility] [id number] [address] [place] [id number] May, [facility] [address] [facility] [id number] [address] [place] [id number] Apr, [facility] [address] [facility] [id number] [address] [place] [id number] Apr, [facility] [address] [facility] [id number] [address] [place] [id number] October, IMMUNIZATIONS No Known Immunizations SOCIAL HISTORY [...]
--- OUTSIDE RECORDS SUMMARY | 2020-01-13 11:41 | XMS REPORT ---
Author Author Monique RAHMAN [facility] Address [address] [place] [address] Care Team Providers Care Chemical Engineering Technologist Name Role Phone RASHEED RAHMAN Unavailable PROBLEMS Type Condition ICD9-CM Code ETA77-OC Code Onset Dates Condition S tatus SNOMED Code Problem History of illicit drug use Z87.898 Ac tive 364811066 Problem Snoring R06.83 Active 23401858 Problem Impaired circulation I99.9 Active 86831695 Problem MRSA (methicillin resistant staph aureus) culture positive Z22.322 Active 687396525 Problem Panic disorder without agoraphobia F41.0 Active 82239615 Problem Dysthymic disorder F34.1 Active 7 5367601 Problem Mood disorder F39 Active 631323 05 Problem Arthritis M19.90 Active 6109275 Problem Mild chronic obstructive pulmonary disease J44.9 Active 108389160 Problem Mild persistent asthma without complication J45.30 Active 336122320 Problem Essential hypertension I10 Active 03554261 Problem On home oxygen therapy Z99.81 Active 203108786109 Problem 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 Active 868219 02 Problem Neuropathy G62.9 Active 327950214 Problem 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 Active 362776311 Problem Major depressive disorder, recurrent episode, moderate F33.1 Active 236244889 Problem Psychotic disorder F29 Active 6 1303428 Problem Hypertension, benign I10 Active 16727496 Problem Onychomycosis B35.1 Active 977542 008 Problem Body mass index (BMI) 40.0-44.9, adult Z68.41 Active 639726656 Problem Varicose veins of both lower extremities I83.93 Active 13874662 Problem Sciatica, left side M54.32 Active 24746712 Problem Agoraphobia F40.00 Active 49776503 Problem Fatigue R53.83 Active 54359609 Problem Major depressive disorder in full remission F32.5 Active 95372771 Problem Slow transit constipation K59.01 Acti ve 44499787 Problem Chronic obstructive pulmonary disease, unspecified COPD ty pe J44.9 Active 20531848 Problem Unspecified psychosis not du e to a substance or known physiological condition F29 Active 580603468 ALLERGIES No Information ENCOUNTERS Encounter Location Date Diagnosis [place] [address] [place] [id number] [place] [id number] Nov, [place] [address] [facility] [id number] [address] [place] [address] October, [place] [address] [place] [id number] [place] [address] October, Abdominal pain, right upper quadrant R10.11 [place] [address] [place] [id number] [place] [address] Sep, [id number] [place] [id number] Sep, [place] [address] [place] [id number] [place] [id number] 15 Sep, 2019 Abdominal pain, right upper quadrant R10.11 [place] [address] [place] [id number] [place] [address] 06 Sep, 2019 Panic disorder without agora phobia F41.0 ; Major depressive disorder, recurrent episode, moderate F33.1 and Morbid obesity E66.01 [place] [address] [place] [id number] [place] [address] Aug, Bronchitis J40 [place] [address] [place] [id number] [place] [address] Aug, Sciatica, left side M54.32 a nd Morbid obesity E66.01 [place] [address] [place] [id number] [place] [id number] Aug, [place] [address] [place] [id number] [place] [address] Aug, Sciatica, left side M54.32 [place] [address] [address] Aug, Neuropathy G62.9 ; Onychomyc osis B35.1 ; Callus of foot L84 and Skin fissures R23.4 [place] [address] [address] Jul, [place] [address] [address] Jul, Morbid obesity E66.01 [place] [address] [address] Jul, Unspecified psychosis not du e to a substance or known physiological condition F29 ; Chronic obstructive pulmonary disease, unspecified COPD type J44.9 and Body mass index (BMI) 40.0-44.9, adult Z68.41 [place] [address] [address] Jun, [place] [address] [address] Jun, Morbid obesity E66.01 [place] [address] [address] May, Morbid obesity E66.01 [place] [address] [address] May, Encounter for immunization Z 23 [place] [address] [address] May, Major depressive disorder, r ecurrent episode, moderate F33.1 ; Panic disorder without agoraphobia F41.0 and Morbid obesity E66.01 [place] [address] [address] May, Major depressive disorder in full remission F32.5 and Panic disorder without agoraphobia F41.0 [place] [address] [address] Apr, Morbid obesity E66.01 [place] [address] [place] [id number] [address] [place] [address] Apr, Slow transit constipation K5 9.01 and Cellulitis of left lower extremity L03.116 [place] [address] [place] [address] Apr, Morbid obesity E66.01 [place] [address] [address] Apr, [place] [address] [address] Apr, Major depressive disorder, r ecurrent episode, moderate F33.1 and Panic disorder without agoraphobia F41.0 [place] [address] [address] Mar, Viral upper respiratory trac t infection J06.9 [place] [address] [address] Mar, Bronchitis J40 and Encounter for immunization Z23 [address] [address] Mar, Morbid obesity E66.01 [place] [address] [address] Feb, Major depressive disorder, r ecurrent episode, moderate F33.1 and Panic disorder without agoraphobia F41.0 [place] [address] [place] [address] Feb, Morbid obesity E66.01 [place] [address] [address] 06 Feb, 2019 Onychomycosis B35.1 ; 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 and Xerosis of skin L85.3 [place] [address] [place] [address] Feb, Major depressive disorder, r ecurrent episode, moderate F33.1 ; Panic disorder without agoraphobia F41.0 and Morbid obesity E66.01 [facility] [address] [facility] [id number] [address] [place] [address] Jan, Major depressive disorder in full remission F32.5 and Panic disorder without agoraphobia F41.0 [facility] [address] [facility] [id number] [address] [place] [address] Jan, Pneumonia of both lower lobe s due to infectious organism J18.1 and Morbid obesity E66.01 [facility] [address] [facility] [id number] [address] [place] [address] Jan, [facility] [address] [facility] [id number] [address] [place] [address] Jan, Major depressive disorder in full remission F32.5 and Panic disorder without agoraphobia F41.0 [facility] [address] [facility] [id number] [address] [place] [address] Jan, [facility] [address] [facility] [id number] [address] [place] [address] Jan, Major depressive disorder, r ecurrent episode, moderate F33.1 ; Panic disorder without agoraphobia F41.0 and Morbid obesity E66.01 [place] [address] [facility] [id number] [address] [place] [address] Dec, Bilious vomiting with nausea R11.14 ; Coughing R05 and Choking, subsequent encounter T17.308D [facility] [address] [facility] [id number] [address] [place] [address] Dec, Morbid obesity E66.01 [facility] [address] [facility] [id number] [address] [place] [address] Dec, Major depressive disorder, r ecurrent episode, moderate F33.1 and Panic disorder without agoraphobia F41.0 [place] [address] [address] Dec, [place] [address] [address] Dec, Major depressive disorder, r ecurrent episode, moderate F33.1 [place] [address] [address] Nov, Major depressive disorder, r ecurrent episode, moderate F33.1 ; Panic disorder without agoraphobia F41.0 and Morbid obesity E66.01 [place] [address] [address] Nov, Morbid obesity E66.01 [place] [address] [address] Nov, Major depressive disorder, r ecurrent episode, moderate F33.1 and Panic disorder without agoraphobia F41.0 [facility] [place] [address] [address] Nov, Allergic reaction, initial e ncounter T78.40XA and Morbid obesity E66.[address] [address] Nov, [place] [address] [address] 13 Nov, 2018 Morbid obesity E66.01 ; Swal lowing problem R13.10 and Hypertension, benign I10 [facility] WALK IN [place] [address] [address] 07 Nov, 2018 Morbid obesity E66.01 ; COPD exacerbation J44.1 and Non- recurrent acute suppurative otitis media of left ear without spontaneous rupture of tympanic membrane H66.002 [place] [address] [address] 07 Nov, 2018 Onychomycosis B35.1 ; Neurop athy G62.9 and Fissure in skin of foot R23.4 [place] [address] [facility] [id number] [address] [place] [address] October, Major depressive disorder, r ecurrent episode, moderate F33.1 ; Panic disorder without agoraphobia F41.0 and Morbid obesity E66.01 [facility] [address] [id number] [address] [place] [address] October, Viral upper respiratory trac t infection J06.9 [facility] [address] [facility] [id number] [address] [place] [address] October, [facility] [address] [facility] [id number] [address] [place] [address] October, Major depressive disorder, r ecurrent episode, moderate F33.1 and Panic disorder without agoraphobia F41.0 [facility] [address] [facility] [id number] [address] [place] [address] October, [facility] [address] [facility] [id number] [address] [place] [address] October, [facility] [address] [facility] [id number] [address] [place] [address] October, [facility] [address] [facility] [id number] [address] [place] [address] October, [facility] [address] [facility] [id number] [address] [place] [address] October, [facility] [address] [facility] [id number] [address] [place] [address] October, [facility] [address] [facility] [id number] [address] [place] [address] October, Major depressive disorder, r ecurrent episode, moderate F33.1 and Panic disorder without agoraphobia F41.0 [facility] [address] [facility] [id number] [address] [place] [address] Sep, Morbid obesity E66.01 and Vane mbar neuritis M54.16 [facility] [address] [place] [id number] [address] [place] [address] Sep, Panic disorder without agora phobia F41.0 and Major depressive disorder, recurrent episode, moderate F33.1 [facility] WALK IN [facility] [address] [place] [id number] [address] [place] [address] Sep, Gastroenteritis K52.9 ; Low back pain M54.5 ; Other chronic pain G89.29 and Morbid obesity E66.01 [facility] [address] [address] Sep, Major depressive disorder, r ecurrent episode, moderate F33.1 ; Panic disorder without agoraphobia F41.0 and 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 [place] [address] [address] Sep, Panic disorder without agora phobia F41.0 [place] [address] [address] Sep, Panic disorder without agora phobia F41.0 [place] [address] [address] Aug, Panic disorder without agora phobia F41.0 ; Major depressive disorder, recurrent episode, moderate F33.1 ; 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 ; Psychotic disorder F29 ; Tardive dyskinesia G24.01 and Morbid obesity E66.01 [facility] [address] [place] [id number] [address] [place] [address] Aug, Dysthymic disorder F34.1 and Psychotic disorder F29 [place] [address] [address] Aug, Encounter for Medicare annua l wellness exam Z00.00 ; Morbid obesity E66.01 and 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 [place] [address] [place] [id number] [address] [place] [address] Aug, Dysthymic disorder F34.1 and Psychotic disorder F29 [place] [address] [place] [address] Aug, Neuropathy G62.9 ; Onychomyc osis B35.1 and Xerosis of skin L85.3 [place] [address] [address] Jul, [place] [address] [address] Jul, Mood disorder F39 ; Wheezing R06.2 ; Choking, initial encounter T17.308A and Coughing R05 [place] [address] [address] Jul, Low back pain M54.5 [facility] WALK IN [facility] [address] [address] Jun, Flu-like symptoms R68.89 ; B ND 45.0-49.9, adult Z68.42 ; COPD exacerbation J44.1 and Acute bronchitis J20.9 [place] [address] [address] Jun, [place] [address] [address] May, [place] [address] [address] May, Onychomycosis B35.1 and 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 [place] [address] [place] [id number] [address] [place] [address] May, Low back pain M54.5 and Abdoulaye a leg R60.0 [place] [address] [address] May, BMI 45.0-49.9, adult Z68.42 ; Well woman exam with routine gynecological exam Z01.419 and Breast cancer screening Z12.31 [place] [address] [address] 19 Apr, 2018 Arthritis M19.90 [place] [address] [address] 16 Apr, 2018 Arthritis M19.90 and Otalgia of both ears H92.03 [place] [address] [address] Feb, [place] [address] [address] Feb, Low back pain M54.5 ; Other chronic pain G89.29 ; Exertional asthma J45.990 and Encounter for immunization Z23 [place] [address] [address] Feb, Skin fissures R23.4 ; Neurop athy G62.9 and Onychomycosis B35.1 [place] [address] [address] 05 Feb, 2018 Dysthymic disorder F34.1 [place] [address] [address] Feb, [place] [address] [address] Jan, [place] [address] [address] Jan, Abrasion of right elbow, ini tial encounter S50.311A ; Abrasion, right knee, initial encounter S80.211A and Sprain of other ligament of right ankle, initial encounter S93.491A [place] [address] [address] Jan, [facility] WALK IN [facility] [address] [address] Jan, Injury of left ankle, initia l encounter S99.912A ; Fall down stairs, initial encounter W10.8XXA and BMI 45.0-49.9, adult Z68.42 [facility] [address] [place] [address] Jan, COPD exacerbation J44.1 [facility] [address] [place] [id number] [place] [address] 13 Jan, 2018 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 [place] [address] [address] Jan, Bronchitis J40 and Acute sup purative otitis media of left ear without spontaneous rupture of tympanic membrane, recurrence not specified H66.002 [place] [address] [address] Jan, [place] [address] [address] 03 Jan, 2018 Bronchitis J40 and BMI 40.0- 44.9, adult Z68.41 [place] [address] [address] Jan, [place] [address] [address] Dec, Gastric pain R10.9 [place] [address] [place] [id number] [place] [address] Dec, [place] [address] [address] Dec, History of illicit drug use Z87.898 ; Neuropathy G62.9 ; COPD (chronic obstructive pulmonary disease) with chronic bronchitis J44.9 and Acute pain of right knee M25.561 [place] [address] [place] [id number] [place] [address] Nov, [place] [address] [place] [id number] [place] [address] Nov, Onychomycosis B35.1 and Cont usion of left foot, subsequent encounter S90.32XD [place] [address] [address] Nov, COPD exacerbation J44.1 [place] [address] [address] Sep, [place] [address] [address] Sep, Dysthymic disorder F34.1 ; T obacco abuse Z72.0 ; Pain in right knee M25.561 ; Pain in left knee M25.562 ; Other chronic pain G89.29 and BMI 40.0- 44.9, adult Z68.41 [place] [address] [address] Aug, Major depressive disorder, r ecurrent episode, moderate F33.1 and 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 [place] [address] [address] Aug, Dysthymic disorder F34.1 ; N on-pressure chronic ulcer of left thigh, unspecified ulcer stage L97.129 ; Tobacco abuse Z72.0 ; Mild chronic obstructive pulmonary disease J44.9 and Forgetfulness R68.89 [place] [address] [address] 09 Aug, 2017 Onychomycosis B35.1 ; Fissur e in skin of foot R23.4 and Foot callus L84 [facility] [address] [place] [address] Jul, Right medial knee pain M25.5 61 ; Upper respiratory tract infection, unspecified type J06.9 and BMI 40.0-44.9, adult Z68.41 [facility] [address] [place] [address] 08 Jul, 2017 Nausea and vomiting, intract ability of vomiting not specified, unspecified vomiting type R11.2 ; Left ear pain H92.02 and Gastric pain R10.9 [facility] [address] [facility] [id number] [address] [place] [address] Apr, Encounter for immunization Z 23 [facility] [address] [facility] [id number] [address] [place] [address] Apr, Onychomycosis B35.1 ; Xerosi s of skin L85.3 ; Neuropathy G62.9 and 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 [facility] [address] [facility] [id number] [address] [place] [address] Jan, Onychomycosis B35.1 and Neur opathy G62.9 [facility] [address] [facility] [id number] [address] [place] [address] Dec, [facility] [address] [facility] [id number] [address] [place] [address] Dec, [facility] [address] [place] [id number] [place] [address] Nov, [facility] [address] [facility] [id number] [address] [place] [address] Aug, [facility] [address] [facility] [id number] [address] [place] [address] Aug, [facility] [address] [facility] [id number] [address] [place] [address] Jul, [facility] [address] [place] [id number] [place] [address] Jul, [facility] [address] [facility] [id number] [address] [place] [address] Jul, Decubitus ulcer of left thig h, stage 2 L89.892 [facility] [address] [place] [id number] [place] [address] Jul, Decubitus ulcer of left thig h, stage 2 L89.892 [facility] [address] [place] [id number] [place] [address] 17 Jul, 2016 [facility] [address] [id number] [address] [place] [address] 15 Jul, 2016 Decubitus ulcer of left thig h, stage 2 L89.892 [facility] [address] [id number] [address] [place] [address] 14 Jul, 2016 [facility] [address] [facility] [id number] [address] [place] [address] 13 Jul, 2016 Cellulitis of other specifie d site L03.818 ; Illicit drug use F19.90 and Decubitus ulcer of left thigh, stage 2 L89.892 [facility] [address] [facility] [id number] [address] [place] [address] 08 Jul, 2016 [facility] [address] [facility] [id number] [address] [place] [address] 06 Jul, 2016 Cellulitis of right breast N 61.0 [facility] [address] [facility] [id number] [address] [place] [address] Jun, [facility] [address] [facility] [id number] [address] [place] [address] Jun, [facility] [address] [facility] [id number] [address] [place] [address] Jun, Wheezing R06.2 and Arthralgi a, unspecified joint M25.50 [facility] [address] [facility] [id number] [address] [place] [address] May, [facility] [address] [facility] [id number] [address] [place] [address] May, [facility] [address] [facility] [id number] [address] [place] [address] May, [facility] [address] [facility] [id number] [address] [place] [address] May, Shortness of breath R06.02 [facility] [address] [id number] [address] [place] [id number] 02 May, 2016 Onychomycosis B35.1 and Fiss ure in skin of foot R23.4 [facility] [address] [id number] [address] [place] [id number] 28 Apr, 2016 [facility] [address] [facility] [id number] [address] [place] [id number] 18 Apr, 2016 Dizziness R42 [facility] [address] [facility] [id number] [address] [place] [id number] 14 Apr, 2016 Shortness of breath R06.02 ; Essential hypertension I10 ; Dizziness R42 and On home oxygen therapy Z99.81 [facility] [address] [facility] [id number] [address] [place] [id number] 10 Apr, 2016 [facility] [address] [facility] [id number] [address] [place] [id number] 08 Apr, 2016 [facility] [address] [facility] [id number] [address] [place] [phone] Apr, [facility] [address] [id number] [address] [place] [id number] Apr, [facility] [address] [facility] [id number] [address] [place] [id number] Apr, [facility] [address] [facility] [id number] [address] [place] [id number] Apr, [facility] [address] [facility] [id number] [address] [place] [id number] Apr, [facility] [address] [id number] [address] [place] [address] Mar, Mild chronic obstructive pul monary disease J44.9 [facility] [address] [id number] [address] [place] [id number] Mar, [facility] [address] [facility] [id number] [address] [place] [address] Mar, Epigastric pain R10.13 ; Low back pain M54.5 ; Other chronic pain G89.29 and Breast cancer screening Z12.39 [place] [address] [place] [id number] [address] [place] [id number] Mar, [place] [address] [facility] [id number] [address] [place] [id number] Mar, [place] [address] [place] [id number] [address] [place] [id number] Feb, [place] [address] [facility] [id number] [address] [place] [phone] Feb, [place] [address] [place] [id number] [place] [address] Feb, Fissure in skin of foot R23. 4 and Onychomycosis B35.1 [place] [address] [place] [id number] [address] [place] [address] Jan, Agoraphobia F40.00 [place] [address] [place] [id number] [address] [place] [address] Dec, Agoraphobia F40.00 [place] [address] [place] [id number] [place] [address] Dec, Mild persistent asthma witho ut complication J45.30 ; Dysthymic disorder F34.1 and Upper respiratory tract infection, unspecified type J06.9 [place] [address] [place] [id number] [address] [place] [address] Nov, Agoraphobia F40.00 [place] [address] [facility] [id number] [address] [place] [address] October, Agoraphobia F40.00 [place] [address] [place] [id number] [address] [place] [phone] Sep, Panic disorder without agora phobia F41.0 ; Agoraphobia F40.00 and Dysthymic disorder F34.1 [place] [address] [facility] [id number] [address] [place] [address] Sep, Panic attacks F41.0 [place] [address] [facility] [id number] [address] [place] [address] Sep, [place] [address] [facility] [id number] [address] [place] [id number] Sep, Panic disorder without agora phobia F41.0 ; Varicose veins of both lower extremities I83.93 and Fatigue R53.83 [place] [address] [facility] [id number] [address] [place] [id number] 14 Sep, 2015 Fatigue R53.83 [place] [address] [facility] [id number] [address] [place] [id number] Sep, [place] [address] [place] [id number] [address] [place] [id number] Aug, [place] [address] [place] [id number] [address] [place] [phone] Aug, [place] [address] [place] [id number] [address] [place] [address] Aug, Type 2 diabetes mellitus wit h diabetic neuropathic arthropathy E11.610 [place] [address] [facility] [id number] [address] [place] [id number] Aug, Panic disorder without agora phobia F41.0 ; Agoraphobia F40.00 and Dysthymic disorder F34.1 [place] [address] [place] [id number] [address] [place] [id number] Aug, Shortness of breath R06.02 ; Panic attacks F41.0 ; COPD (chronic obstructive pulmonary disease) J44.9 ; Tobacco abuse Z72.0 ; Family history of diabetes mellitus Z83.3 and Weight gain R63.5 [place] [address] [place] [id number] [address] [place] [id number] Aug, [place] [address] [place] [id number] [address] [place] [id number] Jul, [facility] [address] [facility] [id number] [address] [place] [id number] Jun, Onychomycosis B35.1 ; Neurop athy G62.9 and Impaired circulation I99.9 [facility] [address] [facility] [id number] [address] [place] [id number] 09 Mar, 2015 Fissure in skin of foot R23. 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 [facility] [address] [facility] [id number] [address] [place] [id number] 18 Feb, 2015 Family history of coronary a rteriosclerosis V17.3 [facility] [address] [facility] [id number] [address] [place] [id number] 15 Feb, 2015 Allergic rhinitis due to darien agnieszka 477.0 ; Unspecified breast screening V76.10 ; Anxiety 300.00 and Family history of coronary arteriosclerosis V17.3 [facility] [address] [facility] [id number] [address] [place] [id number] Jan, [facility] [address] [facility] [id number] [address] [place] [phone] Dec, [facility] [address] [facility] [id number] [address] [place] [id number] Dec, Onychomycosis 110.1 and Skin fissures 709.8 [facility] [address] [facility] [id number] [address] [place] [id number] Sep, [facility] [address] [facility] [id number] [address] [place] [id number] Sep, [facility] [address] [facility] [id number] [address] [place] [phone] Aug, [facility] [address] [facility] [id number] [address] [place] [id number] Aug, [facility] [address] [id number] [address] [place] [address], [place] [address] Jul, [facility] [address] [id number] [address] [place] [address], [place] [address] Jul, [facility] [address] [id number] [address] [place] [address], [place] [address] Jun, [facility] [address] [id number] [address] [place] [address], [place] [address] Jun, [facility] [address] [id number] [address] [place] [address], [place] [address] Jun, [facility] [address] [id number] [address] [place] [address], [place] [address] Jun, [facility] [address] [id number] [address] [place] [address], [place] [address] Jun, [facility] [address] [id number] [address] [place] [address], [place] [address] May, [facility] [address] [id number] [address] [place] [address], [place] [address] May, [facility] [address] [id number] [address] [place] [address], [place] [address] May, [facility] [address] [id number] [address] [place] [address], [place] [address] May, [facility] [address] [id number] [address] [place] [address], [place] [address] May, [facility] [address] [id number] [address] [place] [address], [place] [address] May, [facility] [address] [id number] [address] [place] [address], [place] [address] May, [facility] [address] [id number] [address] [place] [address], [place] [address] May, [facility] [address] [id number] [address] [place] [address], [place] [address] Apr, [facility] [address] [id number] [address] [place] [address], [place] [address] Apr, [facility] [address] [id number] [address] [place] [address], [place] [address] Apr, [facility] [address] [id number] [address] [place] [address], [place] [address] Apr, [facility] [address] [id number] [address] [place] [address], [place] [address] Apr, [facility] [address] [id number] [address] [place] [address], [place] [address] Apr, [facility] [address] [id number] [address] [place] [address], [place] [address] Apr, [facility] [address] [id number] [address] [place] [address], [place] [address] Apr, [facility] [address] [id number] [address] [place] [address], [place] [address] Apr, [facility] [address] [id number] [address] [place] [address], [place] [address] Apr, [facility] [address] [id number] [address] [place] [address], [place] [address] Mar, [facility] [address] [id number] [address] [place] [address], [place] [address] Mar, [facility] [address] [id number] [address] [place] [address], [place] [address] Mar, [facility] [address] [id number] [address] [place] [address], [place] [address] Mar, [facility] [address] [id number] [address] [place] [address], [place] [address] Mar, [facility] [address] [id number] [address] [place] [address], [place] [address] Mar, [facility] [address] [id number] [address] [place] [address], [place] [address] Mar, [facility] [address] [id number] [address] [place] [address], [place] [address] Mar, [facility] [address] [id number] [address] [place] [address], [place] [address] Mar, [facility] [address] [id number] [address] [place] [address], [place] [address] Mar, [facility] [address] [id number] [address] [place] [address], [place] [address] Mar, [facility] [address] [id number] [address] [place] [address], [place] [address] Mar, [facility] [address] [id number] [address] [place] [address], [place] [address] Mar, [facility] [address] [id number] [address] [place] [address], [place] [address] Mar, [facility] [address] [id number] [address] [place] [address], [place] [address] Mar, [facility] [address] [id number] [address] [place] [address], [place] [address] Mar, [facility] [address] [id number] [address] [place] [address], [place] [address] 20 Mar, 2014 [facility] [address] [id number] [address] [place] [address], [place] [address] 16 Mar, 2014 [facility] [address] [id number] [address] [place] [id number] 16 Mar, 2014 [facility] [address] [id number] [address] [place] [address], [place] [address] 15 Mar, 2014 [facility] [address] [id number] [address] [place] [address], [place] [address] 14 Mar, 2014 [facility] [address] [id number] [address] [place] [address], [place] [address] 14 Mar, 2014 [facility] [address] [id number] [address] [place] [address], [place] [address] 14 Mar, 2013 [facility] [address] [id number] [address] [place] [address], [place] [address] 14 Mar, 2013 [facility] [address] [id number] [address] [place] [address], [place] [address] 09 Mar, 2013 [facility] [address] [id number] [address] [place] [address], [place] [address] 09 Mar, 2013 [facility] [address] [id number] [address] [place] [address], [place] [address] 09 Mar, 2013 [facility] [address] [id number] [address] [place] [address], [place] [address] Mar, 2013 [facility] [address] [id number] [address] [place] [address], [place] [address] 30 Sep, 2013 [facility] [address] [id number] [address] [place] [address], [place] [address] 30 Sep, 2013 [facility] [address] [id number] [address] [place] [address], [place] [address] 30 Sep, 2013 [facility] [address] [id number] [address] [place] [address], [place] [address] 30 Sep, 2013 [facility] [address] [id number] [address] [place] [address], [place] [address] 26 Sep, 2013 [facility] [address] [id number] [address] [place] [address], [place] [address] 26 Sep, 2013 [facility] [address] [id number] [address] [place] [address], [place] [address] 09 Sep, 2013 [facility] [address] [id number] [address] [place] [address], [place] [address] 09 Sep, 2013 [facility] [address] [id number] [address] [place] [address], [place] [address] 03 Sep, 2013 [facility] [address] [id number] [address] [place] [address], [place] [address] Feb, [facility] [address] [id number] [facility] [place] [address] Feb, [facility] [address] [id number] [address] [place] [address], [place] [address] Feb, [facility] [address] [id number] [address] [place] [address], [place] [address] Jan, [facility] [address] [id number] [address] [place] [address], [place] [address] Jan, [facility] [address] [id number] [address] [place] [address], [place] [address] Jan, [facility] [address] [id number] [address] [place] [address], [place] [address] Jan, [facility] [address] [id number] [address] [place] [address], [place] [address] Jan, [facility] [address] [id number] [address] [place] [address], [place] [address] Jan, [facility] [address] [id number] [address] [place] [address], [place] [address] Jan, [facility] [address] [id number] [address] [place] [address], [place] [address] Jan, [facility] [address] [id number] [address] [place] [address], [place] [address] Jan, [facility] [address] [id number] [address] [place] [address], [place] [address] Jan, [facility] [address] [id number] [address] [place] [address], [place] [address] Jan, [facility] [address] [id number] [address] [place] [address], [place] [address] Jan, [facility] [address] [id number] [address] [place] [address], [place] [address] Jan, [facility] [address] [id number] [address] [place] [address], [place] [address] Dec, 2013 [facility] [address] [id number] [facility] [place] [address] Dec, 2013 [facility] [address] [id number] [address] [place] [address], [place] [address] Dec, [facility] [address] [id number] [address] [place] [address], [place] [address] Dec, 2013 [facility] [address] [id number] [address] [place] [address], [place] [address] Dec, 2013 [facility] [address] [id number] [address] [place] [address], [place] [address] Dec, [facility] [address] [id number] [address] [place] [address], [place] [address] Dec, 2013 [facility] [address] [id number] [address] [place] [address], [place] [address] Dec, 2013 [facility] [address] [id number] [address] [place] [address], [place] [address] Dec, [facility] [address] [id number] [address] [place] [address], [place] [address] Dec, 2013 [facility] [address] [id number] [address] [place] [address], [place] [address] Dec, 2013 [facility] [address] [id number] [address] [place] [address], [place] [address] Dec, 2013 [facility] [address] [id number] [address] [place] [address], [place] [address] Dec, 2013 [facility] [address] [id number] [address] [place] [address], [place] [address] Dec, 2013 [facility] [address] [id number] [address] [place] [address], [place] [address] Dec, 2013 [facility] [address] [id number] [address] [place] [address], [place] [address] Dec, 2013 [facility] [address] [id number] [facility] [place] [address] 08 Dec, 2013 [facility] [address] [id number] [facility] [place] [address] Dec, [facility] [address] [id number] [facility] [place] [address] Nov, [facility] [address] [id number] [facility] [place] [address] Nov, [facility] [address] [id number] [facility] [place] [address] Nov, [facility] [address] [id number] [address] [place] [address], [place] [address] Nov, [facility] [address] [id number] [address] [place] [address], [place] [address] Nov, [facility] [address] [id number] [address] [place] [address], [place] [address] Nov, [facility] [address] [id number] [address] [place] [address], [place] [address] Nov, [facility] [address] [id number] [address] [place] [address], [place] [address] Nov, [facility] [address] [id number] [address] [place] [address], [place] [address] Nov, [facility] [address] [id number] [address] [place] [address], [place] [address] Nov, [facility] [address] [id number] [address] [place] [address], [place] [address] Nov, [facility] [address] [id number] [address] [place] [address], [place] [address] Nov, [facility] [address] [id number] [address] [place] [address], [place] [address] Nov, [facility] [address] [id number] [address] [place] [address], [place] [address] Nov, [facility] [address] [id number] [facility] [place] [address] Nov, [facility] [address] [id number] [address] [place] [address], [place] [address] Nov, [facility] [address] [id number] [address] [place] [address], [place] [address] Nov, [facility] [address] [id number] [address] [place] [address], [place] [address] Nov, [facility] [address] [id number] [address] [place] [address], [place] [address] Nov, [facility] [address] [id number] [address] [place] [address], [place] [address] Nov, [facility] [address] [id number] [address] [place] [address], [place] [address] October, [facility] [address] [id number] [address] [place] [address], [place] [address] October, [facility] [address] [id number] [address] [place] [address], [place] [address] October, [facility] [address] [id number] [address] [place] [address], [place] [address] October, [facility] [address] [id number] [address] [place] [address], [place] [address] Sep, [facility] [address] [id number] [address] [place] [address], [place] [address] Sep, [facility] [address] [id number] [address] [place] [address], [place] [address] Sep, [facility] [address] [id number] [address] [place] [address], [place] [address] Sep, [facility] [address] [id number] [address] [place] [address], [place] [address] Sep, [facility] [address] [id number] [facility] [place] [address] Sep, [facility] [address] [id number] [address] [place] [address], [place] [address] Sep, [facility] [address] [id number] [address] [place] [address], [place] [address] Sep, [facility] [address] [id number] [address] [place] [address], [place] [address] Sep, [facility] [address] [id number] [address] [place] [address], [place] [address] Aug, [facility] [address] [id number] [address] [place] [address], [place] [address] Aug, [facility] [address] [id number] [address] [place] [address], [place] [address] Aug, [facility] [address] [id number] [address] [place] [address], [place] [address] Aug, [facility] [address] [id number] [address] [place] [address], [place] [address] Aug, [facility] [address] [id number] [address] [place] [address], [place] [address] Aug, [facility] [address] [id number] [address] [place] [address], [place] [address] Aug, [facility] [address] [id number] [address] [place] [address], [place] [address] Aug, [facility] [address] [id number] [address] [place] [address], [place] [address] Jul, [facility] [address] [id number] [address] [place] [address], [place] [address] Jul, [facility] [address] [id number] [address] [place] [address], [place] [address] Jun, [facility] [address] [id number] [address] [place] [address], [place] [address] Jun, [facility] [address] [id number] [address] [place] [address], [place] [address] Jun, [facility] [address] [id number] [address] [place] [address], [place] [address] Jun, [facility] [address] [id number] [address] [place] [address], [place] [address] Jun, [facility] [address] [id number] [address] [place] [address], [place] [address] Jun, [facility] [address] [id number] [address] [place] [address], [place] [address] Jun, [facility] [address] [id number] [address] [place] [address], [place] [address] Jun, [facility] [address] [id number] [address] [place] [address], [place] [address] Jun, [facility] [address] [id number] [address] [place] [address], [place] [address] Jun, [facility] [address] [id number] [address] [place] [address], [place] [address] Jun, [facility] [address] [id number] [address] [place] [address], [place] [address] Jun, [facility] [address] [id number] [address] [place] [address], [place] [address] May, [facility] [address] [id number] [address] [place] [address], [place] [address] May, [facility] [address] [id number] [address] [place] [address], [place] [address] May, [facility] [address] [id number] [address] [place] [address], [place] [address] May, [facility] [address] [id number] [address] [place] [address], [place] [address] May, [facility] [address] [id number] [place] [id number] May, [facility] [address] [id number] [address] [place] [address], [place] [address] May, [facility] [address] [id number] [address] [place] [address], [place] [address] May, [facility] [address] [id number] [address] [place] [address], [place] [address] May, [facility] [address] [id number] [address] [place] [address], [place] [address] May, [facility] [address] [id number] [address] [place] [address], [place] [address] May, [facility] [address] [id number] [address] [place] [address], [place] [address] May, [facility] [address] [id number] [address] [place] [address], [place] [address] May, [facility] [address] [id number] [address] [place] [address], [place] [address] Apr, [facility] [address] [id number] [address] [place] [address], [place] [address] Apr, [facility] [address] [id number] [address] [place] [address], [place] [address] Mar, [facility] [address] [id number] [address] [place] [address] Mar, [facility] [address] [id number] [address] [place] [id number] 24 Feb, 2013 [facility] [address] [id number] [address] [place] [address], [place] [address] 23 Feb, 2013 [facility] [address] [id number] [address] [place] [address], [place] [address] 05 Feb, 2013 [facility] [address] [id number] [address] [place] [address], [place] [address] 04 Feb, 2013 [facility] [address] [id number] [address] [place] [address], [place] [address] Jan, [facility] [address] [id number] [address] [place] [address], [place] [address] Jan, [facility] [address] [id number] [address] [place] [address], [place] [address] Jan, [facility] [address] [id number] [address] [place] [address], [place] [address] Jan, [facility] [address] [id number] [address] [place] [address], [place] [address] Jan, [facility] [address] [id number] [address] [place] [address], [place] [address] Jan, [facility] [address] [id number] [address] [place] [address], [place] [address] Dec, [facility] [address] [id number] [address] [place] [address], [place] [address] Dec, [facility] [address] [id number] [address] [place] [address], [place] [address] Dec, [facility] [address] [id number] [address] [place] [address], [place] [address] Dec, [facility] [address] [id number] [address] [place] [address], [place] [address] Nov, [facility] [address] [id number] [address] [place] [address], [place] [address] October, [facility] [address] [id number] [address] [place] [address], [place] [address] October, [facility] [address] [id number] [address] [place] [address], [place] [address] October, [facility] [address] [id number] [address] [place] [address], [place] [address] Sep, [facility] [address] [id number] [address] [place] [address], [place] [address] Sep, [facility] [address] [id number] [address] [place] [address], [place] [address] Jun, [facility] [address] [id number] [address] [place] [address], [place] [address] Jun, [facility] [address] [id number] [address] [place] [address], [place] [address] Jun, [facility] [address] [id number] [address] [place] [address], [place] [address] Apr, [facility] [address] [id number] [address] [place] [address], [place] [address] Apr, [facility] [address] [id number] [address] [place] [address], [place] [address] Apr, [facility] [address] [id number] [address] [place] [address], [place] [address] Apr, [facility] [address] [id number] [address] [place] [address], [place] [address] Mar, [facility] [address] [id number] [address] [place] [address], [place] [address] Mar, [facility] [address] [id number] [address] [place] [address], [place] [address] Mar, [facility] [address] [id number] [address] [place] [address], [place] [address] Mar, [facility] [address] [id number] [address] [place] [address], [place] [address] 29 Feb, 2012 [facility] [address] [id number] [address] [place] [address], [place] [address] 27 Feb, 2012 [facility] [address] [id number] [address] [place] [address], [place] [address] 20 Feb, 2012 [facility] [address] [id number] [address] [place] [address], [place] [address] Jan, [facility] [address] [id number] [address] [place] [address], [place] [address] Jan, [facility] [address] [id number] [address] [place] [address], [place] [address] Jan, [facility] [address] [id number] [address] [place] [address], [place] [address] Jan, [facility] [address] [id number] [address] [place] [address], [place] [address] Dec, [facility] [address] [id number] [address] [place] [address], [place] [address] Dec, [facility] [address] [id number] [address] [place] [address], [place] [address] Nov, [facility] [address] [id number] [address] [place] [address], [place] [address] Nov, [facility] [address] [id number] [address] [place] [address], [place] [address] October, [facility] [address] [id number] [address] [place] [address], [place] [address] October, [facility] [address] [id number] [address] [place] [address], [place] [address] October, [facility] [address] [id number] [address] [place] [address], [place] [address] Sep, [facility] [address] [id number] [address] [place] [address], [place] [address] Sep, [facility] [address] [id number] [address] [place] [address], [place] [address] Sep, [facility] [address] [id number] [address] [place] [address], [place] [address] Aug, [facility] [address] [id number] [address] [place] [address], [place] [address] Aug, [facility] [address] [id number] [address] [place] [address], [place] [address] Aug, [facility] [address] [id number] [address] [place] [address], [place] [address] 15 Aug, 2011 [facility] [address] [id number] [address] [place] [address], [place] [address] Aug, [facility] [address] [id number] [address] [place] [address], [place] [address] Jul, [facility] [address] [id number] [address] [place] [address], [place] [address] 16 Jul, 2011 [facility] [address] [id number] [address] [place] [address], [place] [address] 13 Jul, 2011 [facility] [address] [id number] [address] [place] [address], [place] [address] Jul, [facility] [address] [id number] [address] [place] [address], [place] [address] Jul, [facility] [address] [id number] [address] [place] [address], [place] [address] Jul, [facility] [address] [id number] [address] [place] [address], [place] [address] Jul, [facility] [address] [id number] [address] [place] [address], [place] [address] Jul, [facility] [address] [id number] [address] [place] [address], [place] [address] Jun, [facility] [address] [id number] [address] [place] [address], [place] [address] Jun, [facility] [address] [id number] [address] [place] [address], [place] [address] May, [facility] [address] [id number] [address] [place] [address], [place] [address] May, [facility] [address] [id number] [address] [place] [address], [place] [address] May, [facility] [address] [id number] [address] [place] [address], [place] [address] 08 May, 2011 [facility] [address] [id number] [address] [place] [address], [place] [address] 30 Apr, 2011 [facility] [address] [id number] [address] [place] [address], [place] [address] 28 Apr, 2011 [facility] [address] [id number] [address] [place] [address], [place] [address] Apr, [facility] [address] [id number] [address] [place] [address], [place] [address] 18 Mar, 2011 [facility] [address] [id number] [address] [place] [address], [place] [address] 18 Mar, 2011 [facility] [address] [id number] [address] [place] [address], [place] [address] 18 Mar, 2011 [facility] [address] [id number] [address] [place] [address], [place] [address] Mar, [facility] [address] [id number] [address] [place] [address], [place] [address] Dec, [facility] [address] [id number] [address] [place] [address], [place] [address] October, [facility] [address] [id number] [address] [place] [address], [place] [address] May, [facility] [address] [id number] [address] [place] [address], [place] [address] 13 May, 2010 [facility] [address] [id number] [address] [place] [address], [place] [address] May, [facility] [address] [id number] [address] [place] [address], [place] [address] 06 May, 2010 [facility] [address] [id number] [address] [place] [address], [place] [address] Mar, [facility] [address] [id number] [address] [place] [address], [place] [address] Mar, [facility] [address] [id number] [address] [place] [address] May, [facility] [address] [id number] [address] [place] [id number] May, [facility] [address] [id number] [address] [place] [address] May, [facility] [address] [facility] [id number] [address] [place] [id number] May, [facility] [address] [id number] [address] [place] [address] Apr, [facility] [address] [facility] [id number] [address] [place] [id number] Apr, [facility] [address] [facility] [id number] [address] [place] [id number] October, IMMUNIZATIONS No Known Immunizations SOCIAL HISTORY [...]
--- OUTSIDE RECORDS SUMMARY | 2020-01-13 11:42 | XMS REPORT ---
Author Author Monique RAHMAN [facility] Address [address] [place] [address] Care Team Providers Care Repack Room Worker Name Role Phone RASHEED RAHMAN Unavailable PROBLEMS Type Condition ICD9-CM Code JXG90-OE Code Onset Dates Condition S tatus SNOMED Code Problem History of illicit drug use Z87.898 Ac tive 497793439 Problem Snoring R06.83 Active 75009413 Problem Impaired circulation I99.9 Active 41173435 Problem MRSA (methicillin resistant staph aureus) culture positive Z22.322 Active 633980124 Problem Panic disorder without agoraphobia F41.0 Active 46587657 Problem Dysthymic disorder F34.1 Active 7 3173883 Problem Mood disorder F39 Active 290252 05 Problem Arthritis M19.90 Active 4105522 Problem Mild chronic obstructive pulmonary disease J44.9 Active 963171102 Problem Mild persistent asthma without complication J45.30 Active 053001181 Problem Essential hypertension I10 Active 45226878 Problem On home oxygen therapy Z99.81 Active 086654797217 Problem 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 Active 171770 02 Problem Neuropathy G62.9 Active 133245868 Problem 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 Active 023534285 Problem Major depressive disorder, recurrent episode, moderate F33.1 Active 057341313 Problem Psychotic disorder F29 Active 6 6258114 Problem Hypertension, benign I10 Active 30457576 Problem Onychomycosis B35.1 Active 154694 008 Problem Body mass index (BMI) 40.0-44.9, adult Z68.41 Active 030415519 Problem Varicose veins of both lower extremities I83.93 Active 11550040 Problem Sciatica, left side M54.32 Active 89301272 Problem Agoraphobia F40.00 Active 47357440 Problem Fatigue R53.83 Active 61651237 Problem Major depressive disorder in full remission F32.5 Active 09283434 Problem Slow transit constipation K59.01 Acti ve 52893444 Problem Chronic obstructive pulmonary disease, unspecified COPD ty pe J44.9 Active 82997534 Problem Unspecified psychosis not du e to a substance or known physiological condition F29 Active 041204354 ALLERGIES No Information ENCOUNTERS Encounter Location Date Diagnosis [place] [address] [place] [id number] [place] [address] Nov, [place] [address] [facility] [id number] [address] [place] [address] October, [place] [address] [facility] [id number] [address] [place] [address] Sep, [id number] [place] [address] Sep, [place] [address] [place] [id number] [place] [address] Sep, Abdominal pain, right upper quadrant R10.11 [place] [address] [facility] [id number] [address] [place] [address] 06 Sep, 2019 Major depressive disorder, r ecurrent episode, moderate F33.1 ; Panic disorder without agoraphobia F41.0 and Morbid obesity E66.01 [place] [address] [place] [id number] [place] [address] Aug, Bronchitis J40 [place] [address] [place] [id number] [place] [address] Aug, Sciatica, left side M54.32 a nd Morbid obesity E66.01 [place] [address] [facility] [id number] [address] [place] [address] Aug, [place] [address] [facility] [id number] [address] [place] [address] 12 Aug, 2019 Sciatica, left side M54.32 [place] [address] [facility] [id number] [address] [place] [address] 06 Aug, 2019 Neuropathy G62.9 ; Onychomyc osis B35.1 ; Callus of foot L84 and Skin fissures R23.4 [place] [address] [address] Jul, [place] [address] [place] [id number] [place] [address] Jul, Morbid obesity E66.01 [place] [address] [address] Jul, Unspecified psychosis not du e to a substance or known physiological condition F29 ; Chronic obstructive pulmonary disease, unspecified COPD type J44.9 and Body mass index (BMI) 40.0-44.9, adult Z68.41 [place] [address] [address] Jun, [place] [address] [address] Jun, Morbid obesity E66.01 [place] [address] [address] May, Morbid obesity E66.01 [place] [address] [address] May, Encounter for immunization Z 23 [place] [address] [address] May, Major depressive disorder, r ecurrent episode, moderate F33.1 ; Panic disorder without agoraphobia F41.0 and Morbid obesity E66.01 [place] [address] [place] [id number] [place] [address] May, Major depressive disorder in full remission F32.5 and Panic disorder without agoraphobia F41.0 [place] [address] [place] [id number] [place] [address] Apr, Morbid obesity E66.01 [place] [address] [address] Apr, Slow transit constipation K5 9.01 and Cellulitis of left lower extremity L03.116 [place] [address] [place] [id number] [address] [place] [address] Apr, Morbid obesity E66.01 [place] [address] [place] [address] Apr, [place] [address] [address] Apr, Major depressive disorder, r ecurrent episode, moderate F33.1 and Panic disorder without agoraphobia F41.0 [place] [address] [address] Mar, Viral upper respiratory trac t infection J06.9 [place] [address] [address] Mar, Bronchitis J40 and Encounter for immunization Z23 [place] [address] [place] [id number] [address] [place] [address] Mar, Morbid obesity E66.01 [place] [address] [address] Feb, Major depressive disorder, r ecurrent episode, moderate F33.1 and Panic disorder without agoraphobia F41.0 [place] [address] [place] [id number] [address] [place] [address] Feb, Morbid obesity E66.01 [place] [address] [place] [address] 06 Feb, 2019 Onychomycosis B35.1 ; 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 and Xerosis of skin L85.3 [place] [address] [place] [id number] [place] [address] Feb, Major depressive disorder, r ecurrent episode, moderate F33.1 ; Panic disorder without agoraphobia F41.0 and Morbid obesity E66.01 [facility] [address] [id number] [address] [place] [address] Jan, Major depressive disorder in full remission F32.5 and Panic disorder without agoraphobia F41.0 [facility] [address] [facility] [id number] [address] [place] [address] Jan, Pneumonia of both lower lobe s due to infectious organism J18.1 and Morbid obesity E66.01 [facility] [address] [facility] [id number] [address] [place] [address] Jan, [facility] [address] [facility] [id number] [address] [place] [address] Jan, Major depressive disorder in full remission F32.5 and Panic disorder without agoraphobia F41.0 [facility] [address] [facility] [id number] [address] [place] [address] Jan, [facility] [address] [facility] [id number] [address] [place] [address] Jan, Major depressive disorder, r ecurrent episode, moderate F33.1 ; Panic disorder without agoraphobia F41.0 and Morbid obesity E66.01 [facility] [address] [facility] [id number] [address] [place] [address] Dec, Bilious vomiting with nausea R11.14 ; Coughing R05 and Choking, subsequent encounter T17.308D [facility] [address] [facility] [id number] [address] [place] [address] Dec, Morbid obesity E66.01 [facility] [address] [facility] [id number] [address] [place] [address] Dec, Major depressive disorder, r ecurrent episode, moderate F33.1 and Panic disorder without agoraphobia F41.0 [facility] [address] [facility] [id number] [address] [place] [address] Dec, [facility] [address] [facility] [id number] [address] [place] [address] Dec, Major depressive disorder, r ecurrent episode, moderate F33.1 [place] [address] [place] [id number] [place] [address] Nov, Major depressive disorder, r ecurrent episode, moderate F33.1 ; Panic disorder without agoraphobia F41.0 and Morbid obesity E66.01 [place] [address] [place] [id number] [place] [address] Nov, Morbid obesity E66.01 [place] [address] [place] [id number] [place] [address] Nov, Major depressive disorder, r ecurrent episode, moderate F33.1 and Panic disorder without agoraphobia F41.0 [facility] [address] [place] [id number] [place] [address] Nov, Allergic reaction, initial e ncounter T78.40XA and Morbid obesity E66.01 [place] [address] [place] [id number] [address] [place] [address] Nov, [place] [address] [address] Nov, Morbid obesity E66.01 ; Swal lowing problem R13.10 and Hypertension, benign I10 [facility] [place] [address] [place] [id number] [place] [address] Nov, Morbid obesity E66.01 ; COPD exacerbation J44.1 and Non- recurrent acute suppurative otitis media of left ear without spontaneous rupture of tympanic membrane H66.002 [place] [address] [place] [id number] [place] [address] 07 Nov, 2018 Onychomycosis B35.1 ; Neurop athy G62.9 and Fissure in skin of foot R23.4 [place] [address] [place] [id number] [place] [address] October, Major depressive disorder, r ecurrent episode, moderate F33.1 ; Panic disorder without agoraphobia F41.0 and Morbid obesity E66.01 [facility] [address] [id number] [address] [place] [address] October, Viral upper respiratory trac t infection J06.9 [facility] [address] [id number] [address] [place] [address] October, [facility] [address] [facility] [id number] [address] [place] [address] October, Major depressive disorder, r ecurrent episode, moderate F33.1 and Panic disorder without agoraphobia F41.0 [facility] [address] [id number] [address] [place] [address] October, [facility] [address] [facility] [id number] [address] [place] [address] October, [facility] [address] [facility] [id number] [address] [place] [address] October, [facility] [address] [id number] [address] [place] [address] October, [facility] [address] [facility] [id number] [address] [place] [address] October, [facility] [address] [facility] [id number] [address] [place] [address] October, [facility] [address] [facility] [id number] [address] [place] [address] October, Major depressive disorder, r ecurrent episode, moderate F33.1 and Panic disorder without agoraphobia F41.0 [facility] [address] [id number] [address] [place] [address] Sep, Morbid obesity E66.01 and Vane mbar neuritis M54.16 [facility] [address] [id number] [address] [place] [address] Sep, Panic disorder without agora phobia F41.0 and Major depressive disorder, recurrent episode, moderate F33.1 [facility] [address] [facility] [id number] [address] [place] [address] Sep, Gastroenteritis K52.9 ; Low back pain M54.5 ; Other chronic pain G89.29 and Morbid obesity E66.01 [facility] [address] [place] [address] Sep, Major depressive disorder, r ecurrent episode, moderate F33.1 ; Panic disorder without agoraphobia F41.0 and 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 [place] [address] [place] [address] Sep, Panic disorder without agora phobia F41.0 [facility] [address] [place] [id number] [address] [place] [address] Sep, Panic disorder without agora phobia F41.0 [facility] [address] [address] Aug, Panic disorder without agora phobia F41.0 ; Major depressive disorder, recurrent episode, moderate F33.1 ; 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 ; Psychotic disorder F29 ; Tardive dyskinesia G24.01 and Morbid obesity E66.01 [facility] [address] [place] [id number] [address] [place] [address] Aug, Dysthymic disorder F34.1 and Psychotic disorder F29 [place] [address] [address] Aug, Encounter for Medicare annua l wellness exam Z00.00 ; Morbid obesity E66.01 and 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 arthropathy E11.610 [place] [address] [place] [id number] [address] [place] [address] Aug, Dysthymic disorder F34.1 and Psychotic disorder F29 [facility] [address] [place] [address] Aug, Neuropathy G62.9 ; Onychomyc osis B35.1 and Xerosis of skin L85.3 [place] [address] [address] Jul, [place] [address] [address] Jul, Mood disorder F39 ; Wheezing R06.2 ; Choking, initial encounter T17.308A and Coughing R05 [place] [address] [address] Jul, Low back pain M54.5 [facility] [address] [address] Jun, Flu-like symptoms R68.89 ; B WI 45.0-49.9, adult Z68.42 ; COPD exacerbation J44.1 and Acute bronchitis J20.9 [place] [address] [address] Jun, [place] [address] [address] May, [place] [address] [address] May, Onychomycosis B35.1 and 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.610 [place] [address] [address] May, Low back pain M54.5 and Abdoulaye a leg R60.0 [place] [address] [address] May, BMI 45.0-49.9, adult Z68.42 ; Well woman exam with routine gynecological exam Z01.419 and Breast cancer screening Z12.31 [place] [address] [address] Apr, Arthritis M19.90 [place] [address] [address] 16 Apr, 2018 Arthritis M19.90 and Otalgia of both ears H92.03 [place] [address] [address] 28 Feb, 2018 [place] [address] [address] 28 Feb, 2018 Low back pain M54.5 ; Other chronic pain G89.29 ; Exertional asthma J45.990 and Encounter for immunization Z23 [place] [address] [address] 21 Feb, 2018 Skin fissures R23.4 ; Neurop athy G62.9 and Onychomycosis B35.1 [place] [address] [address] 05 Feb, 2018 Dysthymic disorder F34.1 [place] [address] [address] 04 Feb, 2018 [place] [address] [address] Jan, [place] [address] [address] Jan, Abrasion of right elbow, ini tial encounter S50.311A ; Abrasion, right knee, initial encounter S80.211A and Sprain of other ligament of right ankle, initial encounter S93.491A [facility] [address] [address] Jan, [facility] [address] [address] Jan, Injury of left ankle, initia l encounter S99.912A ; Fall down stairs, initial encounter W10.8XXA and BMI 45.0-49.9, adult Z68.42 [place] [address] [address] Jan, COPD exacerbation J44.1 [facility] [address] [facility] [id number] [address] [place] [address] Jan, 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 [facility] [address] [place] [id number] [place] [address] Jan, Bronchitis J40 and Acute sup purative otitis media of left ear without spontaneous rupture of tympanic membrane, recurrence not specified H66.002 [facility] [address] [place] [id number] [place] [address] Jan, [place] [address] [place] [id number] [place] [address] Jan, Bronchitis J40 and BMI 40.0- 44.9, adult Z68.41 [place] [address] [place] [id number] [place] [address] Jan, [place] [address] [place] [id number] [place] [address] Dec, Gastric pain R10.9 [place] [address] [place] [id number] [place] [address] Dec, [facility] [address] [place] [id number] [place] [address] Dec, History of illicit drug use Z87.898 ; Neuropathy G62.9 ; COPD (chronic obstructive pulmonary disease) with chronic bronchitis J44.9 and Acute pain of right knee M25.561 [place] [id number] [place] [id number] [place] [address] Nov, [place] [address] [place] [id number] [place] [address] Nov, Onychomycosis B35.1 and Cont usion of left foot, subsequent encounter S90.32XD [place] [address] [place] [id number] [place] [address] Nov, COPD exacerbation J44.1 [place] [address] [place] [id number] [address] [place] [address] Sep, [place] [address] [address] 30 Sep, 2017 Dysthymic disorder F34.1 ; T obacco abuse Z72.0 ; Pain in right knee M25.561 ; Pain in left knee M25.562 ; Other chronic pain G89.29 and BMI 40.0- 44.9, adult Z68.41 [place] [address] [address] Aug, Major depressive disorder, r ecurrent episode, moderate F33.1 and 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 [place] [address] [address] 14 Aug, 2017 Dysthymic disorder F34.1 ; N on-pressure chronic ulcer of left thigh, unspecified ulcer stage L97.129 ; Tobacco abuse Z72.0 ; Mild chronic obstructive pulmonary disease J44.9 and Forgetfulness R68.89 [place] [address] [address] 09 Aug, 2017 Onychomycosis B35.1 ; Fissur e in skin of foot R23.4 and Foot callus L84 [facility] [address] [address] Jul, Right medial knee pain M25.5 61 ; Upper respiratory tract infection, unspecified type J06.9 and BMI 40.0-44.9, adult Z68.41 [facility] [address] [address] 08 Jul, 2017 Nausea and vomiting, intract ability of vomiting not specified, unspecified vomiting type R11.2 ; Left ear pain H92.02 and Gastric pain R10.9 [place] [address] [place] [id number] [address] [place] [address] Apr, Encounter for immunization Z 23 [place] [address] [id number] [address] [place] [address] Apr, Onychomycosis B35.1 ; Xerosi s of skin L85.3 ; Neuropathy G62.9 and 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 [facility] [address] [id number] [address] [place] [address] Jan, Onychomycosis B35.1 and Neur opathy G62.9 [facility] [address] [id number] [address] [place] [address] Dec, [facility] [address] [id number] [address] [place] [address] Dec, [facility] [address] [facility] [id number] [address] [place] [address] Nov, [facility] [address] [facility] [id number] [address] [place] [address] Aug, [facility] [address] [facility] [id number] [address] [place] [address] Aug, [facility] [address] [facility] [id number] [address] [place] [address] Jul, [facility] [address] [facility] [id number] [address] [place] [address] Jul, [facility] [address] [facility] [id number] [address] [place] [address] Jul, Decubitus ulcer of left thig h, stage 2 L89.892 [facility] [address] [id number] [address] [place] [address] Jul, Decubitus ulcer of left thig h, stage 2 L89.892 [facility] [address] [facility] [id number] [address] [place] [address] Jul, [facility] [address] [facility] [id number] [address] [place] [address] Jul, Decubitus ulcer of left thig h, stage 2 L89.892 [facility] [address] [id number] [address] [place] [address] 14 Jul, 2016 [facility] [address] [id number] [address] [place] [address] 13 Jul, 2016 Cellulitis of other specifie d site L03.818 ; Illicit drug use F19.90 and Decubitus ulcer of left thigh, stage 2 L89.892 [facility] [address] [id number] [address] [place] [address] 08 Jul, 2016 [facility] [address] [id number] [address] [place] [address] 06 Jul, 2016 Cellulitis of right breast N 61.0 [facility] [address] [facility] [id number] [address] [place] [address] Jun, [facility] [address] [facility] [id number] [address] [place] [address] Jun, [facility] [address] [id number] [address] [place] [address] Jun, Wheezing R06.2 and Arthralgi a, unspecified joint M25.50 [facility] [address] [facility] [id number] [address] [place] [address] May, [facility] [address] [facility] [id number] [address] [place] [address] May, [facility] [address] [facility] [id number] [address] [place] [id number] May, [facility] [address] [facility] [id number] [address] [place] [id number] May, Shortness of breath R06.02 [facility] [address] [facility] [id number] [address] [place] [id number] May, Onychomycosis B35.1 and Fiss ure in skin of foot R23.4 [facility] [address] [id number] [address] [place] [phone] 28 Apr, 2016 [facility] [address] [id number] [address] [place] [phone] 18 Apr, 2016 Dizziness R42 [facility] [address] [facility] [id number] [address] [place] [phone] 14 Apr, 2016 Shortness of breath R06.02 ; Essential hypertension I10 ; Dizziness R42 and On home oxygen therapy Z99.81 [facility] [address] [id number] [address] [place] [id number] 10 Apr, 2016 [facility] [address] [id number] [address] [place] [id number] 08 Apr, 2016 [facility] [address] [id number] [address] [place] [phone] Apr, [facility] [address] [id number] [address] [place] [phone] Apr, [facility] [address] [id number] [address] [place] [phone] Apr, [facility] [address] [id number] [address] [place] [address] Apr, [facility] [address] [id number] [address] [place] [address] Apr, [facility] [address] [id number] [address] [place] [address] Mar, Mild chronic obstructive pul monary disease J44.9 [facility] [address] [id number] [address] [place] [address] Mar, [facility] [address] [facility] [id number] [address] [place] [address] Mar, Epigastric pain R10.13 ; Low back pain M54.5 ; Other chronic pain G89.29 and Breast cancer screening Z12.39 [facility] [address] [facility] [id number] [address] [place] [address] Mar, [facility] [address] [facility] [id number] [address] [place] [address] Mar, [facility] [address] [facility] [id number] [address] [place] [address] Feb, [facility] [address] [facility] [id number] [address] [place] [address] Feb, [facility] [address] [facility] [id number] [address] [place] [address] Feb, Fissure in skin of foot R23. 4 and Onychomycosis B35.1 [facility] [address] [facility] [id number] [address] [place] [address] Jan, Agoraphobia F40.00 [facility] [address] [place] [id number] [address] [place] [address] Dec, Agoraphobia F40.00 [facility] [place] [address] [facility] [id number] [address] [place] [address] Dec, Mild persistent asthma witho ut complication J45.30 ; Dysthymic disorder F34.1 and Upper respiratory tract infection, unspecified type J06.9 [facility] [address] [place] [id number] [address] [place] [address] Nov, Agoraphobia F40.00 [facility] [address] [place] [id number] [address] [place] [address] October, Agoraphobia F40.00 [facility] [address] [facility] [id number] [address] [place] [address] Sep, Panic disorder without agora phobia F41.0 ; Agoraphobia F40.00 and Dysthymic disorder F34.1 [facility] [address] [facility] [id number] [address] [place] [address] Sep, Panic attacks F41.0 [facility] [address] [address] Sep, [facility] [address] [address] Sep, Panic disorder without agora phobia F41.0 ; Varicose veins of both lower extremities I83.93 and Fatigue R53.83 [facility] [place] [address] [address] Sep, Fatigue R53.83 [place] [address] [address] Sep, [place] [address] [address] Aug, [facility] [address] [address] Aug, [facility] [address] [address] Aug, Type 2 diabetes mellitus wit h diabetic neuropathic arthropathy E11.610 [facility] [address] [address] Aug, Panic disorder without agora phobia F41.0 ; Agoraphobia F40.00 and Dysthymic disorder F34.1 [facility] [address] [address] Aug, Shortness of breath R06.02 ; Panic attacks F41.0 ; COPD (chronic obstructive pulmonary disease) J44.9 ; Tobacco abuse Z72.0 ; Family history of diabetes mellitus Z83.3 and Weight gain R63.5 [facility] [address] [address] Aug, [facility] [facility] [address] [address] Jul, [facility] [address] [address] Jun, Onychomycosis B35.1 ; Neurop athy G62.9 and Impaired circulation I99.9 [facility] [address] [facility] [id number] [address] [place] [address] Mar, Fissure in skin of foot R23. 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 [facility] [address] [place] [id number] [address] [place] [address] 18 Feb, 2015 Family history of coronary a rteriosclerosis V17.3 [facility] [address] [place] [id number] [address] [place] [address] 15 Feb, 2015 Allergic rhinitis due to darien agnieszka 477.0 ; Unspecified breast screening V76.10 ; Anxiety 300.00 and Family history of coronary arteriosclerosis V17.3 [facility] [place] [address] [place] [id number] [address] [place] [address] Jan, [facility] [address] [place] [id number] [address] [place] [address] Dec, [facility] [address] [place] [id number] [address] [place] [address] Dec, Onychomycosis 110.1 and Skin fissures 709.8 [facility] [address] [place] [id number] [address] [place] [address] Sep, [facility] [address] [facility] [id number] [address] [place] [address] Sep, [facility] [address] [place] [id number] [address] [place] [address] Aug, [facility] [address] [place] [id number] [address] [place] [address] Aug, [facility] [address] [place] [id number] [address] [place] [address] Jul, [facility] [address] [place] [id number] [address] [place] [address] Jul, [facility] [address] [id number] [address] [place] [address], [place] [address] Jun, [facility] [address] [id number] [address] [place] [address], [place] [address] Jun, [facility] [address] [id number] [address] [place] [address], [place] [address] Jun, [facility] [address] [id number] [address] [place] [address], [place] [address] Jun, [facility] [address] [id number] [address] [place] [address], [place] [address] Jun, [facility] [address] [id number] [address] [place] [address], [place] [address] May, [facility] [address] [id number] [address] [place] [address], [place] [address] May, [facility] [address] [id number] [address] [place] [address], [place] [address] May, [facility] [address] [id number] [address] [place] [address], [place] [address] May, [facility] [address] [id number] [address] [place] [address], [place] [address] May, [facility] [address] [id number] [address] [place] [address], [place] [address] May, [facility] [address] [id number] [address] [place] [address], [place] [address] May, [facility] [address] [id number] [address] [place] [address], [place] [address] May, [facility] [address] [id number] [address] [place] [address], [place] [address] Apr, [facility] [address] [id number] [address] [place] [address], [place] [address] Apr, [facility] [address] [id number] [address] [place] [address], [place] [address] Apr, [facility] [address] [id number] [address] [place] [address], [place] [address] Apr, [facility] [address] [id number] [address] [place] [address], [place] [address] Apr, [facility] [address] [id number] [address] [place] [address], [place] [address] Apr, [facility] [address] [id number] [address] [place] [address], [place] [address] Apr, [facility] [address] [id number] [address] [place] [address], [place] [address] Apr, [facility] [address] [id number] [address] [place] [address], [place] [address] Apr, [facility] [address] [id number] [address] [place] [address], [place] [address] Apr, [facility] [address] [id number] [address] [place] [address], [place] [address] Mar, [facility] [address] [id number] [address] [place] [address], [place] [address] Mar, [facility] [address] [id number] [address] [place] [address], [place] [address] Mar, [facility] [address] [id number] [address] [place] [address], [place] [address] Mar, [facility] [address] [id number] [address] [place] [address], [place] [address] Mar, [facility] [address] [id number] [address] [place] [address], [place] [address] Mar, [facility] [address] [id number] [address] [place] [address], [place] [address] Mar, [facility] [address] [id number] [address] [place] [address], [place] [address] Mar, [facility] [address] [id number] [address] [place] [address], [place] [address] 24 Mar, 2014 [facility] [address] [id number] [address] [place] [address], [place] [address] 23 Mar, 2014 [facility] [address] [id number] [address] [place] [address], [place] [address] Mar, [facility] [address] [id number] [address] [place] [address], [place] [address] Mar, [facility] [address] [id number] [address] [place] [address], [place] [address] Mar, [facility] [address] [id number] [address] [place] [address], [place] [address] Mar, [facility] [address] [id number] [address] [place] [address], [place] [address] Mar, [facility] [address] [id number] [address] [place] [address], [place] [address] Mar, [facility] [address] [id number] [address] [place] [address], [place] [address] 20 Mar, 2014 [facility] [address] [id number] [address] [place] [address] 16 Mar, 2014 [facility] [address] [id number] [address] [place] [address] 16 Mar, 2014 [facility] [address] [id number] [address] [place] [address] 15 Mar, 2014 [facility] [address] [id number] [address] [place] [address], [place] [address] 14 Mar, 2014 [facility] [address] [id number] [address] [place] [address], [place] [address] 14 Mar, 2014 [facility] [address] [id number] [address] [place] [address] 14 Mar, 2014 [facility] [address] [id number] [address] [place] [address] 14 Mar, 2013 [facility] [address] [id number] [address] [place] [address], [place] [address] 09 Mar, 2013 [facility] [address] [id number] [address] [place] [address] 09 Mar, 2013 [facility] [address] [id number] [address] [place] [address], [place] [address] 09 Mar, 2013 [facility] [address] [id number] [address] [place] [address], [place] [address] 09 Mar, 2013 [facility] [address] [id number] [address] [place] [address], [place] [address] 30 Sep, 2013 [facility] [address] [id number] [address] [place] [address], [place] [address] 30 Sep, 2013 [facility] [address] [id number] [address] [place] [address] 30 Sep, 2013 [facility] [address] [id number] [address] [place] [address], [place] [address] 30 Sep, 2013 [facility] [address] [id number] [address] [place] [address], [place] [address] 26 Sep, 2013 [facility] [address] [id number] [address] [place] [address], [place] [address] 26 Sep, 2013 [facility] [address] [id number] [address] [place] [address], [place] [address] 09 Sep, 2013 [facility] [address] [id number] [address] [place] [address] 09 Sep, 2013 [facility] [address] [id number] [address] [place] [address], [place] [address] 03 Sep, 2013 [facility] [address] [id number] [address] [place] [address], [place] [address] 03 Sep, 2013 [facility] [address] [id number] [address] [place] [address], [place] [address] 03 Sep, 2013 [facility] [address] [id number] [facility] [place] [address] Feb, [facility] [address] [id number] [facility] [place] [address] Jan, [facility] [address] [id number] [facility] [place] [address] Jan, [facility] [address] [id number] [address] [place] [address], [place] [address] Jan, [facility] [address] [id number] [address] [place] [address], [place] [address] Jan, [facility] [address] [id number] [address] [place] [address], [place] [address] Jan, [facility] [address] [id number] [address] [place] [address], [place] [address] Jan, [facility] [address] [id number] [address] [place] [address], [place] [address] Jan, [facility] [address] [id number] [address] [place] [address], [place] [address] Jan, [facility] [address] [id number] [address] [place] [address], [place] [address] Jan, [facility] [address] [id number] [address] [place] [address], [place] [address] Jan, [facility] [address] [id number] [address] [place] [address], [place] [address] Jan, [facility] [address] [id number] [address] [place] [address], [place] [address] Jan, [facility] [address] [id number] [address] [place] [address], [place] [address] Jan, [facility] [address] [id number] [address] [place] [address], [place] [address] Dec, [facility] [address] [id number] [address] [place] [address], [place] [address] Dec, [facility] [address] [id number] [facility] [place] [address] Dec, [facility] [address] [id number] [facility] [place] [address] Dec, [facility] [address] [id number] [facility] [place] [address] Dec, [facility] [address] [id number] [address] [place] [address], [place] [address] Dec, [facility] [address] [id number] [facility] [place] [address] Dec, [facility] [address] [id number] [address] [place] [address], [place] [address] Dec, [facility] [address] [id number] [address] [place] [address], [place] [address] Dec, 2013 [facility] [address] [id number] [address] [place] [address], [place] [address] Dec, 2013 [facility] [address] [id number] [address] [place] [address], [place] [address] Dec, [facility] [address] [id number] [address] [place] [address], [place] [address] Dec, 2013 [facility] [address] [id number] [address] [place] [address], [place] [address] Dec, 2013 [facility] [address] [id number] [address] [place] [address], [place] [address] Dec, 2013 [facility] [address] [id number] [address] [place] [address], [place] [address] Dec, [facility] [address] [id number] [address] [place] [address], [place] [address] Dec, 2013 [facility] [address] [id number] [address] [place] [address], [place] [address] Dec, 2013 [facility] [address] [id number] [facility] [place] [address] 08 Dec, 2013 [facility] [address] [id number] [address] [place] [address], [place] [address] Nov, [facility] [address] [id number] [facility] [place] [address] Nov, [facility] [address] [id number] [address] [place] [address], [place] [address] Nov, [facility] [address] [id number] [address] [place] [address], [place] [address] Nov, [facility] [address] [id number] [address] [place] [address], [place] [address] Nov, [facility] [address] [id number] [address] [place] [address], [place] [address] Nov, [facility] [address] [id number] [address] [place] [address], [place] [address] Nov, [facility] [address] [id number] [address] [place] [address], [place] [address] Nov, [facility] [address] [id number] [address] [place] [address], [place] [address] Nov, [facility] [address] [id number] [address] [place] [address], [place] [address] Nov, [facility] [address] [id number] [address] [place] [address], [place] [address] Nov, [facility] [address] [id number] [address] [place] [address], [place] [address] Nov, [facility] [address] [id number] [address] [place] [address], [place] [address] Nov, [facility] [address] [id number] [address] [place] [address], [place] [address] Nov, [facility] [address] [id number] [address] [place] [address], [place] [address] Nov, [facility] [address] [id number] [address] [place] [address], [place] [address] Nov, [facility] [address] [id number] [address] [place] [address], [place] [address] Nov, [facility] [address] [id number] [address] [place] [address], [place] [address] Nov, [facility] [address] [id number] [address] [place] [address], [place] [address] Nov, [facility] [address] [id number] [address] [place] [address], [place] [address] Nov, [facility] [address] [id number] [address] [place] [address], [place] [address] October, [facility] [address] [id number] [address] [place] [address], [place] [address] October, [facility] [address] [id number] [address] [place] [address], [place] [address] October, [facility] [address] [id number] [address] [place] [address], [place] [address] October, [facility] [address] [id number] [address] [place] [address], [place] [address] Sep, [facility] [address] [id number] [address] [place] [address], [place] [address] Sep, [facility] [address] [id number] [address] [place] [address], [place] [address] Sep, [facility] [address] [id number] [address] [place] [address], [place] [address] Sep, [facility] [address] [id number] [address] [place] [address], [place] [address] Sep, [facility] [address] [id number] [address] [place] [address], [place] [address] Sep, [facility] [address] [id number] [address] [place] [address], [place] [address] Sep, [facility] [address] [id number] [facility] [place] [address] Sep, [facility] [address] [id number] [address] [place] [address], [place] [address] Sep, [facility] [address] [id number] [address] [place] [address], [place] [address] Aug, [facility] [address] [id number] [address] [place] [address], [place] [address] Aug, [facility] [address] [id number] [address] [place] [address], [place] [address] Aug, [facility] [address] [id number] [address] [place] [address], [place] [address] Aug, [facility] [address] [id number] [address] [place] [address], [place] [address] Aug, [facility] [address] [id number] [address] [place] [address], [place] [address] Aug, [facility] [address] [id number] [address] [place] [address], [place] [address] Aug, [facility] [address] [id number] [address] [place] [address], [place] [address] Aug, [facility] [address] [id number] [address] [place] [address], [place] [address] Jul, [facility] [address] [id number] [address] [place] [address], [place] [address] Jul, [facility] [address] [id number] [address] [place] [address], [place] [address] Jun, [facility] [address] [id number] [address] [place] [address], [place] [address] Jun, [facility] [address] [id number] [address] [place] [address], [place] [address] Jun, [facility] [address] [id number] [address] [place] [address], [place] [address] Jun, [facility] [address] [id number] [address] [place] [address], [place] [address] Jun, [facility] [address] [id number] [address] [place] [address], [place] [address] Jun, [facility] [address] [id number] [address] [place] [address], [place] [address] Jun, [facility] [address] [id number] [address] [place] [address], [place] [address] Jun, [facility] [address] [id number] [address] [place] [address], [place] [address] Jun, [facility] [address] [id number] [address] [place] [address], [place] [address] Jun, [facility] [address] [id number] [address] [place] [address], [place] [address] Jun, [facility] [address] [id number] [address] [place] [address], [place] [address] Jun, [facility] [address] [id number] [address] [place] [address], [place] [address] May, [facility] [address] [id number] [address] [place] [address], [place] [address] May, [facility] [address] [id number] [address] [place] [address], [place] [address] May, [facility] [address] [id number] [address] [place] [address], [place] [address] May, [facility] [address] [id number] [address] [place] [address], [place] [address] May, [facility] [address] [id number] [address] [place] [address], [place] [address] May, [facility] [address] [id number] [address] [place] [address], [place] [address] May, [facility] [address] [id number] [address] [place] [address], [place] [address] May, [facility] [address] [id number] [address] [place] [address], [place] [address] May, [facility] [address] [id number] [address] [place] [address], [place] [address] May, [facility] [address] [id number] [address] [place] [address], [place] [address] May, [facility] [address] [id number] [address] [place] [address], [place] [address] May, [facility] [address] [id number] [address] [place] [address], [place] [address] May, [facility] [address] [id number] [address] [place] [address], [place] [address] Apr, [facility] [address] [id number] [address] [place] [address], [place] [address] Apr, [facility] [address] [id number] [address] [place] [address], [place] [address] Mar, [facility] [address] [id number] [address] [place] [address], [place] [address] Mar, [facility] [address] [id number] [address] [place] [address], [place] [address] 24 Feb, 2013 [facility] [address] [id number] [address] [place] [address] Feb, [facility] [address] [id number] [address] [place] [address], [place] [address] 05 Feb, 2013 [facility] [address] [id number] [address] [place] [address], [place] [address] 04 Feb, 2013 [facility] [address] [id number] [address] [place] [address], [place] [address] Jan, [facility] [address] [id number] [address] [place] [address], [place] [address] Jan, [facility] [address] [id number] [address] [place] [address], [place] [address] Jan, [facility] [address] [id number] [address] [place] [address], [place] [address] Jan, [facility] [address] [id number] [address] [place] [address], [place] [address] Jan, [facility] [address] [id number] [address] [place] [address], [place] [address] Jan, [facility] [address] [id number] [address] [place] [address], [place] [address] Dec, [facility] [address] [id number] [address] [place] [address], [place] [address] Dec, [facility] [address] [id number] [address] [place] [address], [place] [address] Dec, [facility] [address] [id number] [address] [place] [address], [place] [address] Dec, [facility] [address] [id number] [address] [place] [address], [place] [address] Nov, [facility] [address] [id number] [address] [place] [address], [place] [address] October, [facility] [address] [id number] [address] [place] [address], [place] [address] October, [facility] [address] [id number] [address] [place] [address], [place] [address] October, [facility] [address] [id number] [address] [place] [address], [place] [address] Sep, [facility] [address] [id number] [address] [place] [address], [place] [address] Sep, [facility] [address] [id number] [address] [place] [address], [place] [address] Jun, [facility] [address] [id number] [address] [place] [address], [place] [address] Jun, [facility] [address] [id number] [address] [place] [address], [place] [address] Jun, [facility] [address] [id number] [address] [place] [address], [place] [address] Apr, [facility] [address] [id number] [address] [place] [address], [place] [address] Apr, [facility] [address] [id number] [address] [place] [address], [place] [address] Apr, [facility] [address] [id number] [address] [place] [address], [place] [address] Apr, [facility] [address] [id number] [address] [place] [address], [place] [address] Mar, [facility] [address] [id number] [address] [place] [address], [place] [address] Mar, [facility] [address] [id number] [address] [place] [address], [place] [address] Mar, [facility] [address] [id number] [address] [place] [address], [place] [address] Mar, [facility] [address] [id number] [address] [place] [address], [place] [address] 29 Feb, 2012 [facility] [address] [id number] [address] [place] [address], [place] [address] 27 Feb, 2012 [facility] [address] [id number] [address] [place] [address], [place] [address] 20 Feb, 2012 [facility] [address] [id number] [address] [place] [address], [place] [address] 30 Jan, 2012 [facility] [address] [id number] [address] [place] [address], [place] [address] 16 Jan, 2012 [facility] [address] [id number] [address] [place] [address], [place] [address] Jan, [facility] [address] [id number] [address] [place] [address], [place] [address] Jan, [facility] [address] [id number] [address] [place] [address], [place] [address] Dec, [facility] [address] [id number] [address] [place] [address], [place] [address] Dec, [facility] [address] [id number] [address] [place] [address], [place] [address] Nov, [facility] [address] [id number] [address] [place] [address], [place] [address] Nov, [facility] [address] [id number] [address] [place] [address], [place] [address] October, [facility] [address] [id number] [address] [place] [address], [place] [address] October, [facility] [address] [id number] [address] [place] [address], [place] [address] October, [facility] [address] [id number] [address] [place] [address], [place] [address] Sep, [facility] [address] [id number] [address] [place] [address], [place] [address] Sep, [facility] [address] [id number] [address] [place] [address], [place] [address] Sep, [facility] [address] [id number] [address] [place] [address], [place] [address] Aug, [facility] [address] [id number] [address] [place] [address], [place] [address] Aug, [facility] [address] [id number] [address] [place] [address], [place] [address] Aug, [facility] [address] [id number] [address] [place] [address], [place] [address] Aug, [facility] [address] [id number] [address] [place] [address], [place] [address] Aug, [facility] [address] [id number] [address] [place] [address], [place] [address] Jul, [facility] [address] [id number] [address] [place] [address], [place] [address] 16 Jul, 2011 [facility] [address] [id number] [address] [place] [address], [place] [address] Jul, 2011 [facility] [address] [id number] [address] [place] [address], [place] [address] Jul, [facility] [address] [id number] [address] [place] [address], [place] [address] Jul, [facility] [address] [id number] [address] [place] [address], [place] [address] Jul, [facility] [address] [id number] [address] [place] [address], [place] [address] Jul, [facility] [address] [id number] [address] [place] [address], [place] [address] Jul, [facility] [address] [id number] [address] [place] [address], [place] [address] Jun, [facility] [address] [id number] [address] [place] [address], [place] [address] Jun, [facility] [address] [id number] [address] [place] [address], [place] [address] May, [facility] [address] [id number] [address] [place] [address], [place] [address] May, [facility] [address] [id number] [address] [place] [address], [place] [address] May, [facility] [address] [id number] [address] [place] [address], [place] [address] May, [facility] [address] [id number] [address] [place] [address], [place] [address] Apr, [facility] [address] [id number] [address] [place] [address], [place] [address] Apr, [facility] [address] [id number] [address] [place] [address], [place] [address] Apr, [facility] [address] [id number] [address] [place] [address], [place] [address] Mar, [facility] [address] [id number] [address] [place] [address], [place] [address] Mar, [facility] [address] [id number] [address] [place] [address], [place] [address] Mar, [facility] [address] [id number] [address] [place] [address], [place] [address] Mar, [facility] [address] [id number] [address] [place] [address], [place] [address] Dec, [facility] [address] [id number] [address] [place] [address], [place] [address] October, [facility] [address] [id number] [address] [place] [address], [place] [address] May, [facility] [address] [id number] [address] [place] [address], [place] [address] May, [facility] [address] [id number] [address] [place] [address], [place] [address] May, [facility] [address] [id number] [address] [place] [address], [place] [address] 06 May, 2010 [facility] [address] [id number] [address] [place] [address], [place] [address] Mar, [facility] [address] [id number] [address] [place] [address], [place] [address] Mar, [facility] [address] [id number] [address] [place] [address], [place] [address] 31 May, 2009 [facility] [address] [id number] [address] [place] [address] May, [facility] [address] [facility] [id number] [address] [place] [address] May, [facility] [address] [facility] [id number] [address] [place] [address] May, [facility] [address] [facility] [id number] [address] [place] [address] Apr, [facility] [address] [facility] [id number] [address] [place] [address] Apr, [facility] [address] [facility] [id number] [address] [place] [address] October, IMMUNIZATIONS No Known Immunizations SOCIAL HISTORY [...]
--- OUTSIDE RECORDS SUMMARY | 2020-01-13 11:42 | XMS REPORT ---
Author Author Monique RAHMAN [facility] Address [address] [place] [address] Care Team Providers Care Endoscopy Tech Name Role Phone RASHEED RAHMAN Unavailable PROBLEMS Type Condition ICD9-CM Code ZTP78-IE Code Onset Dates Condition S tatus SNOMED Code Problem History of illicit drug use Z87.898 Ac tive 650188772 Problem Snoring R06.83 Active 11533432 Problem Impaired circulation I99.9 Active 69264530 Problem MRSA (methicillin resistant staph aureus) culture positive Z22.322 Active 240461927 Problem Panic disorder without agoraphobia F41.0 Active 00437936 Problem Dysthymic disorder F34.1 Active 7 3689040 Problem Mood disorder F39 Active 275921 05 Problem Arthritis M19.90 Active 3949296 Problem Mild chronic obstructive pulmonary disease J44.9 Active 602113094 Problem Mild persistent asthma without complication J45.30 Active 411238127 Problem Essential hypertension I10 Active 91496640 Problem On home oxygen therapy Z99.81 Active 011450180681 Problem 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 Active 004627 02 Problem Neuropathy G62.9 Active 086757668 Problem 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 Active 100463626 Problem Major depressive disorder, recurrent episode, moderate F33.1 Active 470473825 Problem Psychotic disorder F29 Active 6 9897273 Problem Hypertension, benign I10 Active 76623990 Problem Onychomycosis B35.1 Active 016220 008 Problem Body mass index (BMI) 40.0-44.9, adult Z68.41 Active 126399960 Problem Varicose veins of both lower extremities I83.93 Active 79730514 Problem Sciatica, left side M54.32 Active 98534191 Problem Agoraphobia F40.00 Active 57069137 Problem Fatigue R53.83 Active 82998541 Problem Major depressive disorder in full remission F32.5 Active 56821350 Problem Slow transit constipation K59.01 Acti ve 71381663 Problem Chronic obstructive pulmonary disease, unspecified COPD ty pe J44.9 Active 30934179 Problem Unspecified psychosis not du e to a substance or known physiological condition F29 Active 637256683 ALLERGIES No Information ENCOUNTERS Encounter Location Date Diagnosis [place] [address] [place] [id number] [address] [place] [address] Nov, [place] [address] [facility] [id number] [address] [place] [address] October, [place] [address] [facility] [id number] [address] [place] [address] Sep, [id number] [place] [id number] Sep, [place] [address] [place] [id number] [address] [place] [address] Sep, Abdominal pain, right upper quadrant R10.11 [place] [address] [facility] [id number] [address] [place] [address] 06 Sep, 2019 Major depressive disorder, r ecurrent episode, moderate F33.1 ; Panic disorder without agoraphobia F41.0 and Morbid obesity E66.01 [place] [address] [place] [id number] [address] [place] [address] Aug, Bronchitis J40 [place] [address] [place] [id number] [place] [address] Aug, Sciatica, left side M54.32 a nd Morbid obesity E66.01 [place] [address] [facility] [id number] [address] [place] [address] Aug, [place] [address] [facility] [id number] [address] [place] [address] 12 Aug, 2019 Sciatica, left side M54.32 [place] [address] [facility] [id number] [address] [place] [address] 06 Aug, 2019 Neuropathy G62.9 ; Onychomyc osis B35.1 ; Callus of foot L84 and Skin fissures R23.4 [place] [address] [address] Jul, [place] [address] [place] [id number] [place] [address] Jul, Morbid obesity E66.01 [place] [address] [address] Jul, Unspecified psychosis not du e to a substance or known physiological condition F29 ; Chronic obstructive pulmonary disease, unspecified COPD type J44.9 and Body mass index (BMI) 40.0-44.9, adult Z68.41 [place] [address] [address] Jun, [place] [address] [address] Jun, Morbid obesity E66.01 [place] [address] [address] May, Morbid obesity E66.01 [place] [address] [address] May, Encounter for immunization Z 23 [place] [address] [address] May, Major depressive disorder, r ecurrent episode, moderate F33.1 ; Panic disorder without agoraphobia F41.0 and Morbid obesity E66.01 [place] [address] [place] [id number] [place] [address] May, Major depressive disorder in full remission F32.5 and Panic disorder without agoraphobia F41.0 [place] [address] [place] [id number] [place] [address] Apr, Morbid obesity E66.01 [place] [address] [address] Apr, Slow transit constipation K5 9.01 and Cellulitis of left lower extremity L03.116 [place] [address] [place] [id number] [address] [place] [address] Apr, Morbid obesity E66.01 [place] [address] [place] [address] Apr, [place] [address] [address] Apr, Major depressive disorder, r ecurrent episode, moderate F33.1 and Panic disorder without agoraphobia F41.0 [place] [address] [address] Mar, Viral upper respiratory trac t infection J06.9 [place] [address] [address] Mar, Bronchitis J40 and Encounter for immunization Z23 [place] [address] [place] [id number] [address] [place] [address] Mar, Morbid obesity E66.01 [place] [address] [address] Feb, Major depressive disorder, r ecurrent episode, moderate F33.1 and Panic disorder without agoraphobia F41.0 [place] [address] [place] [id number] [address] [place] [address] Feb, Morbid obesity E66.01 [place] [address] [place] [address] 06 Feb, 2019 Onychomycosis B35.1 ; 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 and Xerosis of skin L85.3 [place] [address] [place] [id number] [place] [address] Feb, Major depressive disorder, r ecurrent episode, moderate F33.1 ; Panic disorder without agoraphobia F41.0 and Morbid obesity E66.01 [facility] [address] [id number] [address] [place] [address] Jan, Major depressive disorder in full remission F32.5 and Panic disorder without agoraphobia F41.0 [facility] [address] [facility] [id number] [address] [place] [address] Jan, Pneumonia of both lower lobe s due to infectious organism J18.1 and Morbid obesity E66.01 [facility] [address] [facility] [id number] [address] [place] [address] Jan, [facility] [address] [facility] [id number] [address] [place] [address] Jan, Major depressive disorder in full remission F32.5 and Panic disorder without agoraphobia F41.0 [facility] [address] [facility] [id number] [address] [place] [address] Jan, [facility] [address] [facility] [id number] [address] [place] [address] Jan, Major depressive disorder, r ecurrent episode, moderate F33.1 ; Panic disorder without agoraphobia F41.0 and Morbid obesity E66.01 [facility] [address] [facility] [id number] [address] [place] [address] Dec, Bilious vomiting with nausea R11.14 ; Coughing R05 and Choking, subsequent encounter T17.308D [facility] [address] [facility] [id number] [address] [place] [address] Dec, Morbid obesity E66.01 [facility] [address] [facility] [id number] [address] [place] [address] Dec, Major depressive disorder, r ecurrent episode, moderate F33.1 and Panic disorder without agoraphobia F41.0 [facility] [address] [facility] [id number] [address] [place] [address] Dec, [facility] [address] [facility] [id number] [address] [place] [address] Dec, Major depressive disorder, r ecurrent episode, moderate F33.1 [place] [address] [place] [id number] [place] [phone] Nov, Major depressive disorder, r ecurrent episode, moderate F33.1 ; Panic disorder without agoraphobia F41.0 and Morbid obesity E66.01 [place] [address] [place] [id number] [place] [address] Nov, Morbid obesity E66.01 [place] [address] [place] [id number] [place] [address] Nov, Major depressive disorder, r ecurrent episode, moderate F33.1 and Panic disorder without agoraphobia F41.0 [facility] [address] [place] [id number] [place] [address] Nov, Allergic reaction, initial e ncounter T78.40XA and Morbid obesity E66.01 [place] [address] [place] [id number] [address] [place] [address] Nov, [place] [address] [address] Nov, Morbid obesity E66.01 ; Swal lowing problem R13.10 and Hypertension, benign I10 [facility] [place] [address] [place] [id number] [place] [address] Nov, Morbid obesity E66.01 ; COPD exacerbation J44.1 and Non- recurrent acute suppurative otitis media of left ear without spontaneous rupture of tympanic membrane H66.002 [place] [address] [place] [id number] [place] [address] 07 Nov, 2018 Onychomycosis B35.1 ; Neurop athy G62.9 and Fissure in skin of foot R23.4 [place] [address] [place] [id number] [place] [address] October, Major depressive disorder, r ecurrent episode, moderate F33.1 ; Panic disorder without agoraphobia F41.0 and Morbid obesity E66.01 [facility] [address] [id number] [address] [place] [address] October, Viral upper respiratory trac t infection J06.9 [facility] [address] [id number] [address] [place] [address] October, [facility] [address] [facility] [id number] [address] [place] [address] October, Major depressive disorder, r ecurrent episode, moderate F33.1 and Panic disorder without agoraphobia F41.0 [facility] [address] [id number] [address] [place] [address] October, [facility] [address] [facility] [id number] [address] [place] [address] October, [facility] [address] [facility] [id number] [address] [place] [address] October, [facility] [address] [id number] [address] [place] [phone] October, [facility] [address] [facility] [id number] [address] [place] [address] October, [facility] [address] [facility] [id number] [address] [place] [address] October, [facility] [address] [facility] [id number] [address] [place] [address] October, Major depressive disorder, r ecurrent episode, moderate F33.1 and Panic disorder without agoraphobia F41.0 [facility] [address] [id number] [address] [place] [address] Sep, Morbid obesity E66.01 and Vane mbar neuritis M54.16 [facility] [address] [id number] [address] [place] [address] Sep, Panic disorder without agora phobia F41.0 and Major depressive disorder, recurrent episode, moderate F33.1 [facility] [address] [facility] [id number] [address] [place] [address] Sep, Gastroenteritis K52.9 ; Low back pain M54.5 ; Other chronic pain G89.29 and Morbid obesity E66.01 [facility] [address] [place] [address] Sep, Major depressive disorder, r ecurrent episode, moderate F33.1 ; Panic disorder without agoraphobia F41.0 and Social phobia F40.10 [place] [address] [place] [address] Sep, Panic disorder without agora phobia F41.0 [facility] [address] [place] [id number] [address] [place] [address] Sep, Panic disorder without agora phobia F41.0 [facility] [address] [address] Aug, Panic disorder without agora phobia F41.0 ; Major depressive disorder, recurrent episode, moderate F33.1 ; Social phobia F40.10 ; Psychotic disorder F29 ; Tardive dyskinesia G24.01 and Morbid obesity E66.01 [facility] [address] [place] [id number] [address] [place] [address] Aug, Dysthymic disorder F34.1 and Psychotic disorder F29 [place] [address] [address] Aug, Encounter for Medicare annua l wellness exam Z00.00 ; Morbid obesity E66.01 and 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.610 [place] [address] [place] [id number] [address] [place] [address] Aug, Dysthymic disorder F34.1 and Psychotic disorder F29 [facility] [address] [place] [address] Aug, Neuropathy G62.9 ; Onychomyc osis B35.1 and Xerosis of skin L85.3 [place] [address] [address] Jul, [place] [address] [address] Jul, Mood disorder F39 ; Wheezing R06.2 ; Choking, initial encounter T17.308A and Coughing R05 [place] [address] [address] Jul, Low back pain M54.5 [facility] [address] [address] Jun, Flu-like symptoms R68.89 ; B MA 45.0-49.9, adult Z68.42 ; COPD exacerbation J44.1 and Acute bronchitis J20.9 [place] [address] [address] Jun, [place] [address] [address] May, [place] [address] [address] May, Onychomycosis B35.1 and 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 [place] [address] [address] May, Low back pain M54.5 and Abdoulaye a leg R60.0 [place] [address] [address] May, BMI 45.0-49.9, adult Z68.42 ; Well woman exam with routine gynecological exam Z01.419 and Breast cancer screening Z12.31 [place] [address] [address] Apr, Arthritis M19.90 [place] [address] [address] 16 Apr, 2018 Arthritis M19.90 and Otalgia of both ears H92.03 [place] [address] [address] 28 Feb, 2018 [place] [address] [address] 28 Feb, 2018 Low back pain M54.5 ; Other chronic pain G89.29 ; Exertional asthma J45.990 and Encounter for immunization Z23 [place] [address] [address] 21 Feb, 2018 Skin fissures R23.4 ; Neurop athy G62.9 and Onychomycosis B35.1 [place] [address] [address] 05 Feb, 2018 Dysthymic disorder F34.1 [place] [address] [address] 04 Feb, 2018 [place] [address] [address] Jan, [place] [address] [address] Jan, Abrasion of right elbow, ini tial encounter S50.311A ; Abrasion, right knee, initial encounter S80.211A and Sprain of other ligament of right ankle, initial encounter S93.491A [facility] [address] [address] Jan, [facility] [address] [address] Jan, Injury of left ankle, initia l encounter S99.912A ; Fall down stairs, initial encounter W10.8XXA and BMI 45.0-49.9, adult Z68.42 [place] [address] [address] Jan, COPD exacerbation J44.1 [facility] [address] [facility] [id number] [address] [place] [address] Jan, 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 [facility] [address] [place] [id number] [place] [address] Jan, Bronchitis J40 and Acute sup purative otitis media of left ear without spontaneous rupture of tympanic membrane, recurrence not specified H66.002 [facility] [address] [place] [id number] [place] [address] Jan, [place] [address] [place] [id number] [place] [address] Jan, Bronchitis J40 and BMI 40.0- 44.9, adult Z68.41 [place] [address] [place] [id number] [place] [address] Jan, [place] [address] [place] [id number] [place] [address] Dec, Gastric pain R10.9 [place] [address] [place] [id number] [place] [address] Dec, [facility] [address] [place] [id number] [place] [address] Dec, History of illicit drug use Z87.898 ; Neuropathy G62.9 ; COPD (chronic obstructive pulmonary disease) with chronic bronchitis J44.9 and Acute pain of right knee M25.561 [place] [address] [place] [id number] [place] [address] Nov, [place] [address] [place] [id number] [place] [address] Nov, Onychomycosis B35.1 and Cont usion of left foot, subsequent encounter S90.32XD [place] [address] [place] [id number] [place] [address] Nov, COPD exacerbation J44.1 [place] [address] [place] [id number] [address] [place] [address] Sep, [place] [address] [address] 30 Sep, 2017 Dysthymic disorder F34.1 ; T obacco abuse Z72.0 ; Pain in right knee M25.561 ; Pain in left knee M25.562 ; Other chronic pain G89.29 and BMI 40.0- 44.9, adult Z68.41 [place] [address] [address] Aug, Major depressive disorder, r ecurrent episode, moderate F33.1 and Social phobia F40.10 [place] [address] [address] 14 Aug, 2017 Dysthymic disorder F34.1 ; N on-pressure chronic ulcer of left thigh, unspecified ulcer stage L97.129 ; Tobacco abuse Z72.0 ; Mild chronic obstructive pulmonary disease J44.9 and Forgetfulness R68.89 [place] [address] [address] 09 Aug, 2017 Onychomycosis B35.1 ; Fissur e in skin of foot R23.4 and Foot callus L84 [facility] [address] [address] Jul, Right medial knee pain M25.5 61 ; Upper respiratory tract infection, unspecified type J06.9 and BMI 40.0-44.9, adult Z68.41 [facility] [address] [address] 08 Jul, 2017 Nausea and vomiting, intract ability of vomiting not specified, unspecified vomiting type R11.2 ; Left ear pain H92.02 and Gastric pain R10.9 [place] [address] [place] [id number] [address] [place] [address] Apr, Encounter for immunization Z 23 [place] [address] [id number] [address] [place] [address] Apr, Onychomycosis B35.1 ; Xerosi s of skin L85.3 ; Neuropathy G62.9 and 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 [facility] [address] [id number] [address] [place] [address] Jan, Onychomycosis B35.1 and Neur opathy G62.9 [facility] [address] [id number] [address] [place] [address] Dec, [facility] [address] [id number] [address] [place] [address] Dec, [facility] [address] [facility] [id number] [address] [place] [address] Nov, [facility] [address] [facility] [id number] [address] [place] [address] Aug, [facility] [address] [facility] [id number] [address] [place] [address] Aug, [facility] [address] [facility] [id number] [address] [place] [address] Jul, [facility] [address] [facility] [id number] [address] [place] [address] Jul, [facility] [address] [facility] [id number] [address] [place] [address] Jul, Decubitus ulcer of left thig h, stage 2 L89.892 [facility] [address] [id number] [address] [place] [address] Jul, Decubitus ulcer of left thig h, stage 2 L89.892 [facility] [address] [facility] [id number] [address] [place] [address] Jul, [facility] [address] [facility] [id number] [address] [place] [address] Jul, Decubitus ulcer of left thig h, stage 2 L89.892 [facility] [address] [id number] [address] [place] [address] 14 Jul, 2016 [facility] [address] [id number] [address] [place] [address] 13 Jul, 2016 Cellulitis of other specifie d site L03.818 ; Illicit drug use F19.90 and Decubitus ulcer of left thigh, stage 2 L89.892 [facility] [address] [id number] [address] [place] [address] 08 Jul, 2016 [facility] [address] [id number] [address] [place] [address] 06 Jul, 2016 Cellulitis of right breast N 61.0 [facility] [address] [facility] [id number] [address] [place] [address] Jun, [facility] [address] [facility] [id number] [address] [place] [address] Jun, [facility] [address] [id number] [address] [place] [address] Jun, Wheezing R06.2 and Arthralgi a, unspecified joint M25.50 [facility] [address] [facility] [id number] [address] [place] [address] May, [facility] [address] [facility] [id number] [address] [place] [address] May, [facility] [address] [facility] [id number] [address] [place] [phone] May, [facility] [address] [facility] [id number] [address] [place] [id number] May, Shortness of breath R06.02 [facility] [address] [facility] [id number] [address] [place] [id number] May, Onychomycosis B35.1 and Fiss ure in skin of foot R23.4 [facility] [address] [id number] [address] [place] [phone] 28 Apr, [address] [facility] [address] [id number] [address] [place] [phone] 18 Apr, 2016 Dizziness R42 [facility] [address] [facility] [facility] [id number] [address] [place] [address] 14 Apr, 2016 Shortness of breath R06.02 ; Essential hypertension I10 ; Dizziness R42 and On home oxygen therapy Z99.81 [facility] [address] [id number] [address] [place] [address] 10 Apr, 2016 [facility] [address] [id number] [address] [place] [address] 08 Apr, 2016 [facility] [address] [id number] [address] [place] [address] Apr, [facility] [address] [id number] [address] [place] [address] Apr, [facility] [address] [id number] [address] [place] [address] Apr, [facility] [address] [id number] [address] [place] [address] Apr, [facility] [address] [id number] [address] [place] [address] Apr, [facility] [address] [id number] [address] [place] [address] Mar, Mild chronic obstructive pul monary disease J44.9 [facility] [address] [id number] [address] [place] [address] Mar, [facility] [address] [facility] [id number] [address] [place] [address] Mar, Epigastric pain R10.13 ; Low back pain M54.5 ; Other chronic pain G89.29 and Breast cancer screening Z12.39 [facility] [address] [facility] [id number] [address] [place] [address] Mar, [facility] [address] [facility] [id number] [address] [place] [address] Mar, [facility] [address] [facility] [id number] [address] [place] [address] Feb, [facility] [address] [facility] [id number] [address] [place] [address] Feb, [facility] [address] [facility] [id number] [address] [place] [address] Feb, Fissure in skin of foot R23. 4 and Onychomycosis B35.1 [facility] [address] [facility] [id number] [address] [place] [address] Jan, Agoraphobia F40.00 [facility] [address] [place] [id number] [address] [place] [address] Dec, Agoraphobia F40.00 [facility] [place] [address] [facility] [id number] [address] [place] [address] Dec, Mild persistent asthma witho ut complication J45.30 ; Dysthymic disorder F34.1 and Upper respiratory tract infection, unspecified type J06.9 [place] [address] [place] [id number] [address] [place] [address] Nov, Agoraphobia F40.00 [place] [address] [place] [id number] [address] [place] [address] October, Agoraphobia F40.00 [facility] [address] [facility] [id number] [address] [place] [address] Sep, Panic disorder without agora phobia F41.0 ; Agoraphobia F40.00 and Dysthymic disorder F34.1 [facility] [address] [facility] [id number] [address] [place] [address] Sep, Panic attacks F41.0 [place] [address] [address] Sep, [place] [address] [address] Sep, Panic disorder without agora phobia F41.0 ; Varicose veins of both lower extremities I83.93 and Fatigue R53.83 [place] [address] [address] Sep, Fatigue R53.83 [place] [address] [address] Sep, [place] [address] [address] Aug, [place] [address] [address] Aug, [place] [address] [address] Aug, Type 2 diabetes mellitus wit h diabetic neuropathic arthropathy E11.610 [place] [address] [address] Aug, Panic disorder without agora phobia F41.0 ; Agoraphobia F40.00 and Dysthymic disorder F34.1 [place] [address] [address] Aug, Shortness of breath R06.02 ; Panic attacks F41.0 ; COPD (chronic obstructive pulmonary disease) J44.9 ; Tobacco abuse Z72.0 ; Family history of diabetes mellitus Z83.3 and Weight gain R63.5 [place] [address] [address] Aug, [place] [address] [address] Jul, [place] [address] [address] Jun, Onychomycosis B35.1 ; Neurop athy G62.9 and Impaired circulation I99.9 [facility] [address] [facility] [id number] [address] [place] [address] Mar, Fissure in skin of foot R23. 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 [facility] [address] [place] [id number] [address] [place] [id number] 18 Feb, 2015 Family history of coronary a rteriosclerosis V17.3 [facility] [address] [place] [id number] [address] [place] [address] 15 Feb, 2015 Allergic rhinitis due to darien agnieszka 477.0 ; Unspecified breast screening V76.10 ; Anxiety 300.00 and Family history of coronary arteriosclerosis V17.3 [place] [address] [place] [id number] [address] [place] [address] Jan, [facility] [address] [place] [id number] [address] [place] [address] Dec, [facility] [address] [place] [id number] [address] [place] [address] Dec, Onychomycosis 110.1 and Skin fissures 709.8 [facility] [address] [place] [id number] [address] [place] [address] Sep, [facility] [address] [facility] [id number] [address] [place] [address] Sep, [facility] [address] [place] [id number] [address] [place] [address] Aug, [facility] [address] [place] [id number] [address] [place] [address] Aug, [facility] [address] [place] [id number] [address] [place] [address] Jul, [facility] [address] [place] [id number] [address] [place] [address] Jul, [facility] [address] [id number] [address] [place] [address], [place] [address] Jun, [facility] [address] [id number] [address] [place] [address], [place] [address] Jun, [facility] [address] [id number] [address] [place] [address], [place] [address] Jun, [facility] [address] [id number] [address] [place] [address], [place] [address] Jun, [facility] [address] [id number] [address] [place] [address], [place] [address] Jun, [facility] [address] [id number] [address] [place] [address], [place] [address] May, [facility] [address] [id number] [address] [place] [address], [place] [address] May, [facility] [address] [id number] [address] [place] [address], [place] [address] May, [facility] [address] [id number] [address] [place] [address], [place] [address] May, [facility] [address] [id number] [address] [place] [address], [place] [address] May, [facility] [address] [id number] [address] [place] [address], [place] [address] May, [facility] [address] [id number] [address] [place] [address], [place] [address] May, [facility] [address] [id number] [address] [place] [address], [place] [address] May, [facility] [address] [id number] [address] [place] [address], [place] [address] Apr, [facility] [address] [id number] [address] [place] [address], [place] [address] Apr, [facility] [address] [id number] [address] [place] [address], [place] [address] Apr, [facility] [address] [id number] [address] [place] [address], [place] [address] Apr, [facility] [address] [id number] [address] [place] [address], [place] [address] Apr, [facility] [address] [id number] [address] [place] [address], [place] [address] Apr, [facility] [address] [id number] [address] [place] [address], [place] [address] Apr, [facility] [address] [id number] [address] [place] [address], [place] [address] Apr, [facility] [address] [id number] [address] [place] [address], [place] [address] Apr, [facility] [address] [id number] [address] [place] [address], [place] [address] Apr, [facility] [address] [id number] [address] [place] [address], [place] [address] Mar, [facility] [address] [id number] [address] [place] [address], [place] [address] Mar, [facility] [address] [id number] [address] [place] [address], [place] [address] Mar, [facility] [address] [id number] [address] [place] [address], [place] [address] Mar, [facility] [address] [id number] [address] [place] [address], [place] [address] Mar, [facility] [address] [id number] [address] [place] [address], [place] [address] Mar, [facility] [address] [id number] [address] [place] [address], [place] [address] Mar, [facility] [address] [id number] [address] [place] [address], [place] [address] Mar, [facility] [address] [id number] [address] [place] [address], [place] [address] 24 Mar, 2014 [facility] [address] [id number] [address] [place] [address], [place] [address] 23 Mar, 2014 [facility] [address] [id number] [address] [place] [address], [place] [address] Mar, [facility] [address] [id number] [address] [place] [address], [place] [address] Mar, [facility] [address] [id number] [address] [place] [address], [place] [address] Mar, [facility] [address] [id number] [address] [place] [address], [place] [address] Mar, [facility] [address] [id number] [address] [place] [address], [place] [address] Mar, [facility] [address] [id number] [address] [place] [address], [place] [address] Mar, [facility] [address] [id number] [address] [place] [address], [place] [address] 20 Mar, 2014 [facility] [address] [id number] [address] [place] [id number] 16 Mar, 2014 [facility] [address] [id number] [address] [place] [address] 16 Mar, 2014 [facility] [address] [id number] [address] [place] [address] 15 Mar, 2014 [facility] [address] [id number] [address] [place] [address], [place] [address] 14 Mar, 2014 [facility] [address] [id number] [address] [place] [address], [place] [address] 14 Mar, 2014 [facility] [address] [id number] [address] [place] [id number] 14 Mar, 2014 [facility] [address] [id number] [address] [place] [address] 14 Mar, 2013 [facility] [address] [id number] [address] [place] [address], [place] [address] 09 Mar, 2013 [facility] [address] [id number] [address] [place] [address] 09 Mar, 2013 [facility] [address] [id number] [address] [place] [address], [place] [address] 09 Mar, 2013 [facility] [address] [id number] [address] [place] [address], [place] [address] 09 Mar, 2013 [facility] [address] [id number] [address] [place] [address], [place] [address] 30 Sep, 2013 [facility] [address] [id number] [address] [place] [address], [place] [address] 30 Sep, 2013 [facility] [address] [id number] [address] [place] [address] 30 Sep, 2013 [facility] [address] [id number] [address] [place] [address], [place] [address] 30 Sep, 2013 [facility] [address] [id number] [address] [place] [address], [place] [address] 26 Sep, 2013 [facility] [address] [id number] [address] [place] [address], [place] [address] 26 Sep, 2013 [facility] [address] [id number] [address] [place] [address], [place] [address] 09 Sep, 2013 [facility] [address] [id number] [address] [place] [address] 09 Sep, 2013 [facility] [address] [id number] [address] [place] [address], [place] [address] 03 Sep, 2013 [facility] [address] [id number] [address] [place] [address], [place] [address] 03 Sep, 2013 [facility] [address] [id number] [address] [place] [address], [place] [address] 03 Sep, 2013 [facility] [address] [id number] [facility] [address] Feb, [facility] [address] [id number] [facility] [address] Jan, [facility] [address] [id number] [facility] [place] [address] Jan, [facility] [address] [id number] [address] [place] [address], [place] [address] Jan, [facility] [address] [id number] [address] [place] [address], [place] [address] Jan, [facility] [address] [id number] [address] [place] [address], [place] [address] Jan, [facility] [address] [id number] [address] [place] [address], [place] [address] Jan, [facility] [address] [id number] [address] [place] [address], [place] [address] Jan, [facility] [address] [id number] [address] [place] [address], [place] [address] Jan, [facility] [address] [id number] [address] [place] [address], [place] [address] Jan, [facility] [address] [id number] [address] [place] [address], [place] [address] Jan, [facility] [address] [id number] [address] [place] [address], [place] [address] Jan, [facility] [address] [id number] [address] [place] [address], [place] [address] Jan, [facility] [address] [id number] [address] [place] [address], [place] [address] Jan, [facility] [address] [id number] [address] [place] [address], [place] [address] Dec, [facility] [address] [id number] [address] [place] [address], [place] [address] Dec, [facility] [address] [id number] [facility] [address] Dec, [facility] [address] [id number] [facility] [place] [address] Dec, [facility] [address] [id number] [facility] [place] [address] Dec, [facility] [address] [id number] [address] [place] [address], [place] [address] Dec, [facility] [address] [id number] [facility] [address] Dec, [facility] [address] [id number] [address] [place] [address], [place] [address] Dec, [facility] [address] [id number] [address] [place] [address], [place] [address] Dec, 2013 [facility] [address] [id number] [address] [place] [address], [place] [address] Dec, 2013 [facility] [address] [id number] [address] [place] [address], [place] [address] Dec, [facility] [address] [id number] [address] [place] [address], [place] [address] Dec, 2013 [facility] [address] [id number] [address] [place] [address], [place] [address] Dec, 2013 [facility] [address] [id number] [address] [place] [address], [place] [address] Dec, 2013 [facility] [address] [id number] [address] [place] [address], [place] [address] Dec, [facility] [address] [id number] [address] [place] [address], [place] [address] Dec, 2013 [facility] [address] [id number] [address] [place] [address], [place] [address] Dec, 2013 [facility] [address] [id number] [facility] [address] 08 Dec, 2013 [facility] [address] [id number] [address] [place] [address], [place] [address] Nov, [facility] [address] [id number] [facility] [address] Nov, [facility] [address] [id number] [address] [place] [address], [place] [address] Nov, [facility] [address] [id number] [address] [place] [address], [place] [address] Nov, [facility] [address] [id number] [address] [place] [address], [place] [address] Nov, [facility] [address] [id number] [address] [place] [address], [place] [address] Nov, [facility] [address] [id number] [address] [place] [address], [place] [address] Nov, [facility] [address] [id number] [address] [place] [address], [place] [address] Nov, [facility] [address] [id number] [address] [place] [address], [place] [address] Nov, [facility] [address] [id number] [address] [place] [address], [place] [address] Nov, [facility] [address] [id number] [address] [place] [address], [place] [address] Nov, [facility] [address] [id number] [address] [place] [address], [place] [address] Nov, [facility] [address] [id number] [address] [place] [address], [place] [address] Nov, [facility] [address] [id number] [address] [place] [address], [place] [address] Nov, [facility] [address] [id number] [address] [place] [address], [place] [address] Nov, [facility] [address] [id number] [address] [place] [address], [place] [address] Nov, [facility] [address] [id number] [address] [place] [address], [place] [address] Nov, [facility] [address] [id number] [address] [place] [address], [place] [address] Nov, [facility] [address] [id number] [address] [place] [address], [place] [address] Nov, [facility] [address] [id number] [address] [place] [address], [place] [address] Nov, [facility] [address] [id number] [address] [place] [address], [place] [address] October, [facility] [address] [id number] [address] [place] [address], [place] [address] October, [facility] [address] [id number] [address] [place] [address], [place] [address] October, [facility] [address] [id number] [address] [place] [address], [place] [address] October, [facility] [address] [id number] [address] [place] [address], [place] [address] Sep, [facility] [address] [id number] [address] [place] [address], [place] [address] Sep, [facility] [address] [id number] [address] [place] [address], [place] [address] Sep, [facility] [address] [id number] [address] [place] [address], [place] [address] Sep, [facility] [address] [id number] [address] [place] [address], [place] [address] Sep, [facility] [address] [id number] [address] [place] [address], [place] [address] Sep, [facility] [address] [id number] [address] [place] [address], [place] [address] Sep, [facility] [address] [id number] [facility] [place] [address] Sep, [facility] [address] [id number] [address] [place] [address], [place] [address] Sep, [facility] [address] [id number] [address] [place] [address], [place] [address] Aug, [facility] [address] [id number] [address] [place] [address], [place] [address] Aug, [facility] [address] [id number] [address] [place] [address], [place] [address] Aug, [facility] [address] [id number] [address] [place] [address], [place] [address] Aug, [facility] [address] [id number] [address] [place] [address], [place] [address] Aug, [facility] [address] [id number] [address] [place] [address], [place] [address] Aug, [facility] [address] [id number] [address] [place] [address], [place] [address] Aug, [facility] [address] [id number] [address] [place] [address], [place] [address] Aug, [facility] [address] [id number] [address] [place] [address], [place] [address] Jul, [facility] [address] [id number] [address] [place] [address], [place] [address] Jul, [facility] [address] [id number] [address] [place] [address], [place] [address] Jun, [facility] [address] [id number] [address] [place] [address], [place] [address] Jun, [facility] [address] [id number] [address] [place] [address], [place] [address] Jun, [facility] [address] [id number] [address] [place] [address], [place] [address] Jun, [facility] [address] [id number] [address] [place] [address], [place] [address] Jun, [facility] [address] [id number] [address] [place] [address], [place] [address] Jun, [facility] [address] [id number] [address] [place] [address], [place] [address] Jun, [facility] [address] [id number] [address] [place] [address], [place] [address] Jun, [facility] [address] [id number] [address] [place] [address], [place] [address] Jun, [facility] [address] [id number] [address] [place] [address], [place] [address] Jun, [facility] [address] [id number] [address] [place] [address], [place] [address] Jun, [facility] [address] [id number] [address] [place] [address], [place] [address] Jun, [facility] [address] [id number] [address] [place] [address], [place] [address] May, [facility] [address] [id number] [address] [place] [address], [place] [address] May, [facility] [address] [id number] [address] [place] [address], [place] [address] May, [facility] [address] [id number] [address] [place] [address], [place] [address] May, [facility] [address] [id number] [address] [place] [address], [place] [address] May, [facility] [address] [id number] [address] [place] [address], [place] [address] May, [facility] [address] [id number] [address] [place] [address], [place] [address] May, [facility] [address] [id number] [address] [place] [address], [place] [address] May, [facility] [address] [id number] [address] [place] [address], [place] [address] May, [facility] [address] [id number] [address] [place] [address], [place] [address] May, [facility] [address] [id number] [address] [place] [address], [place] [address] May, [facility] [address] [id number] [address] [place] [address], [place] [address] May, [facility] [address] [id number] [address] [place] [address], [place] [address] May, [facility] [address] [id number] [address] [place] [address], [place] [address] Apr, [facility] [address] [id number] [address] [place] [address], [place] [address] Apr, [facility] [address] [id number] [address] [place] [address], [place] [address] Mar, [facility] [address] [id number] [address] [place] [address], [place] [address] Mar, [facility] [address] [id number] [address] [place] [address], [place] [address] 24 Feb, 2013 [facility] [address] [id number] [address] [place] [address] Feb, [facility] [address] [id number] [address] [place] [address], [place] [address] 05 Feb, 2013 [facility] [address] [id number] [address] [place] [address], [place] [address] 04 Feb, 2013 [facility] [address] [id number] [address] [place] [address], [place] [address] Jan, [facility] [address] [id number] [address] [place] [address], [place] [address] Jan, [facility] [address] [id number] [address] [place] [address], [place] [address] Jan, [facility] [address] [id number] [address] [place] [address], [place] [address] Jan, [facility] [address] [id number] [address] [place] [address], [place] [address] Jan, [facility] [address] [id number] [address] [place] [address], [place] [address] Jan, [facility] [address] [id number] [address] [place] [address], [place] [address] Dec, [facility] [address] [id number] [address] [place] [address], [place] [address] Dec, [facility] [place] [address] [id number] [address] [place] [address], [place] [address] Dec, [facility] [place] [address] [id number] [address] [place] [address], [place] [address] Dec, [facility] [place] [address] [id number] [address] [place] [address], [place] [address] Nov, [facility] [address] [id number] [address] [place] [address], [place] [address] October, [facility] [place] [address] [id number] [address] [place] [address], [place] [address] October, [facility] [address] [id number] [address] [place] [address], [place] [address] October, [facility] [address] [id number] [address] [place] [address], [place] [address] Sep, [facility] [address] [id number] [address] [place] [address], [place] [address] Sep, [facility] [address] [id number] [address] [place] [address], [place] [address] Jun, [facility] [address] [id number] [address] [place] [address], [place] [address] Jun, [facility] [address] [id number] [address] [place] [address], [place] [address] Jun, [facility] [address] [id number] [address] [place] [address], [place] [address] Apr, [facility] [address] [id number] [address] [place] [address], [place] [address] Apr, [facility] [address] [id number] [address] [place] [address], [place] [address] Apr, [facility] [address] [id number] [address] [place] [address], [place] [address] Apr, [facility] [address] [id number] [address] [place] [address], [place] [address] Mar, [facility] [address] [id number] [address] [place] [address], [place] [address] Mar, [facility] [address] [id number] [address] [place] [address], [place] [address] Mar, [facility] [address] [id number] [address] [place] [address], [place] [address] Mar, [facility] [address] [id number] [address] [place] [address], [place] [address] 29 Feb, 2012 [facility] [address] [id number] [address] [place] [address], [place] [address] 27 Feb, 2012 [facility] [address] [id number] [address] [place] [address], [place] [address] 20 Feb, 2012 [facility] [address] [id number] [address] [place] [address], [place] [address] 30 Jan, 2012 [facility] [address] [id number] [address] [place] [address], [place] [address] 16 Jan, 2012 [facility] [address] [id number] [address] [place] [address], [place] [address] Jan, [facility] [address] [id number] [address] [place] [address], [place] [address] Jan, [facility] [address] [id number] [address] [place] [address], [place] [address] Dec, [facility] [address] [id number] [address] [place] [address], [place] [address] Dec, [facility] [address] [id number] [address] [place] [address], [place] [address] Nov, [facility] [address] [id number] [address] [place] [address], [place] [address] Nov, [facility] [address] [id number] [address] [place] [address], [place] [address] October, [facility] [address] [id number] [address] [place] [address], [place] [address] October, [facility] [address] [id number] [address] [place] [address], [place] [address] October, [facility] [address] [id number] [address] [place] [address], [place] [address] Sep, [facility] [address] [id number] [address] [place] [address], [place] [address] Sep, [facility] [address] [id number] [address] [place] [address], [place] [address] Sep, [facility] [address] [id number] [address] [place] [address], [place] [address] Aug, [facility] [address] [id number] [address] [place] [address], [place] [address] Aug, [facility] [address] [id number] [address] [place] [address], [place] [address] Aug, [facility] [address] [id number] [address] [place] [address], [place] [address] Aug, [facility] [address] [id number] [address] [place] [address], [place] [address] Aug, [facility] [address] [id number] [address] [place] [address], [place] [address] Jul, [facility] [address] [id number] [address] [place] [address], [place] [address] 16 Jul, 2011 [facility] [address] [id number] [address] [place] [address], [place] [address] Jul, 2011 [facility] [address] [id number] [address] [place] [address], [place] [address] Jul, [facility] [address] [id number] [address] [place] [address], [place] [address] Jul, [facility] [address] [id number] [address] [place] [address], [place] [address] Jul, [facility] [address] [id number] [address] [place] [address], [place] [address] Jul, [facility] [address] [id number] [address] [place] [address], [place] [address] Jul, [facility] [address] [id number] [address] [place] [address], [place] [address] Jun, [facility] [address] [id number] [address] [place] [address], [place] [address] Jun, [facility] [address] [id number] [address] [place] [address], [place] [address] May, [facility] [address] [id number] [address] [place] [address], [place] [address] May, [facility] [address] [id number] [address] [place] [address], [place] [address] May, [facility] [address] [id number] [address] [place] [address], [place] [address] May, [facility] [address] [id number] [address] [place] [address], [place] [address] Apr, [facility] [address] [id number] [address] [place] [address], [place] [address] Apr, [facility] [address] [id number] [address] [place] [address], [place] [address] Apr, [facility] [address] [id number] [address] [place] [address], [place] [address] Mar, [facility] [address] [id number] [address] [place] [address], [place] [address] Mar, [facility] [address] [id number] [address] [place] [address], [place] [address] Mar, [facility] [address] [id number] [address] [place] [address], [place] [address] Mar, [facility] [address] [id number] [address] [place] [address], [place] [address] Dec, [facility] [address] [id number] [address] [place] [address], [place] [address] October, [facility] [address] [id number] [address] [place] [address], [place] [address] May, [facility] [address] [id number] [address] [place] [address], [place] [address] May, [facility] [address] [id number] [address] [place] [address], [place] [address] May, [facility] [address] [id number] [address] [place] [address], [place] [address] 06 May, 2010 [facility] [address] [id number] [address] [place] [address], [place] [address] Mar, [facility] [address] [id number] [address] [place] [address], [place] [address] Mar, [facility] [address] [id number] [address] [place] [address], [place] [address] 31 May, 2009 [facility] [address] [id number] [address] [place] [address] May, [facility] [address] [facility] [id number] [address] [place] [address] May, [facility] [address] [facility] [id number] [address] [place] [address] May, [facility] [address] [facility] [id number] [address] [place] [address] Apr, [facility] [address] [facility] [id number] [address] [place] [address] Apr, [facility] [address] [facility] [id number] [address] [place] [address] October, IMMUNIZATIONS No Known Immunizations SOCIAL HISTORY [...]
--- OUTSIDE RECORDS SUMMARY | 2020-01-13 11:43 | XMS REPORT ---
Author Author Monique RAHMAN [facility] Address [address] [place] [address] Care Team Providers Care Bank Vault Attendant Name Role Phone RASHEED RAHMAN Unavailable PROBLEMS Type Condition ICD9-CM Code [id number] Code Onset Dates Condition S tatus SNOMED Code Problem History of illicit drug use Z87.898 Ac tive 534432970 Problem Snoring R06.83 Active 66740877 Problem Impaired circulation I99.9 Active 33612693 Problem MRSA (methicillin resistant staph aureus) culture positive Z22.322 Active 188842465 Problem Panic disorder without agoraphobia F41.0 Active 76622759 Problem Dysthymic disorder F34.1 Active 7 6772255 Problem Mood disorder F39 Active 284045 05 Problem Arthritis M19.90 Active 3249389 Problem Mild chronic obstructive pulmonary disease J44.9 Active 449840036 Problem Mild persistent asthma without complication J45.30 Active 056030857 Problem Essential hypertension I10 Active 08270485 Problem On home oxygen therapy Z99.81 Active 755864186777 Problem Social phobia F40.10 Active 851482 02 Problem Neuropathy G62.9 Active 052853547 Problem 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 Active 389779492 Problem Major depressive disorder, recurrent episode, moderate F33.1 Active 814272407 Problem Psychotic disorder F29 Active 6 6457544 Problem Hypertension, benign I10 Active 10691238 Problem Onychomycosis B35.1 Active 252557 008 Problem Body mass index (BMI) 40.0-44.9, adult Z68.41 Active 798504885 Problem Varicose veins of both lower extremities I83.93 Active 13260636 Problem Sciatica, left side M54.32 Active 01216342 Problem Agoraphobia F40.00 Active 63235154 Problem Fatigue R53.83 Active 20784844 Problem Major depressive disorder in full remission F32.5 Active 30560069 Problem Slow transit constipation K59.01 Acti ve 25950262 Problem Chronic obstructive pulmonary disease, unspecified COPD ty pe J44.9 Active 83318177 Problem Unspecified psychosis not du e to a substance or known physiological condition F29 Active 907177042 ALLERGIES No Information ENCOUNTERS Encounter Location Date Diagnosis [place] [address] [address] [place] [id number] [place] [phone] Nov, [place] [address] [facility] [id number] [address] [place] [phone] October, [place] [address] [facility] [id number] [address] [place] [address] Sep, [id number] [place] [phone] Sep, [place] [address] [place] [id number] [place] [phone] Sep, Abdominal pain, right upper quadrant R10.11 [place] [address] [facility] [id number] [address] [place] [phone] 06 Sep, 2019 Major depressive disorder, r ecurrent episode, moderate F33.1 ; Panic disorder without agoraphobia F41.0 and Morbid obesity E66.01 [place] [address] [place] [id number] [place] [phone] Aug, Bronchitis J40 [place] [address] [place] [id number] [place] [phone] Aug, Sciatica, left side M54.32 a nd Morbid obesity E66.01 [place] [address] [facility] [id number] [address] [place] [phone] Aug, [place] [address] [facility] [id number] [address] [place] [phone] 12 Aug, 2019 Sciatica, left side M54.32 [place] [address] [facility] [id number] [address] [place] [phone] 06 Aug, 2019 Neuropathy G62.9 ; Onychomyc osis B35.1 ; Callus of foot L84 and Skin fissures R23.4 [place] [address] [address] Jul, [place] [address] [place] [id number] [place] [address] Jul, Morbid obesity E66.01 [place] [address] [address] Jul, Unspecified psychosis not du e to a substance or known physiological condition F29 ; Chronic obstructive pulmonary disease, unspecified COPD type J44.9 and Body mass index (BMI) 40.0-44.9, adult Z68.41 [place] [address] [address] Jun, [place] [address] [address] Jun, Morbid obesity E66.01 [place] [address] [address] May, Morbid obesity E66.01 [place] [address] [address] May, Encounter for immunization Z 23 [place] [address] [address] May, Major depressive disorder, r ecurrent episode, moderate F33.1 ; Panic disorder without agoraphobia F41.0 and Morbid obesity E66.01 [place] [address] [place] [id number] [place] [phone] May, Major depressive disorder in full remission F32.5 and Panic disorder without agoraphobia F41.0 [place] [address] [place] [id number] [place] [phone] Apr, Morbid obesity E66.01 [place] [address] [address] Apr, Slow transit constipation K5 9.01 and Cellulitis of left lower extremity L03.116 [place] [address] [place] [id number] [address] [place] [phone] Apr, Morbid obesity E66.01 [place] [address] [place] [address] Apr, [place] [address] [address] Apr, Major depressive disorder, r ecurrent episode, moderate F33.1 and Panic disorder without agoraphobia F41.0 [place] [address] [address] Mar, Viral upper respiratory trac t infection J06.9 [place] [address] [address] Mar, Bronchitis J40 and Encounter for immunization Z23 [place] [address] [place] [id number] [address] [place] [address] Mar, Morbid obesity E66.01 [place] [address] [address] Feb, Major depressive disorder, r ecurrent episode, moderate F33.1 and Panic disorder without agoraphobia F41.0 [place] [address] [place] [id number] [address] [place] [phone] Feb, Morbid obesity E66.01 [place] [address] [place] [phone] 06 Feb, 2019 Onychomycosis B35.1 ; 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 and Xerosis of skin L85.3 [place] [address] [place] [id number] [place] [phone] Feb, Major depressive disorder, r ecurrent episode, moderate F33.1 ; Panic disorder without agoraphobia F41.0 and Morbid obesity E66.01 [facility] [address] [id number] [address] [place] [phone] Jan, Major depressive disorder in full remission F32.5 and Panic disorder without agoraphobia F41.0 [facility] [address] [facility] [id number] [address] [place] [phone] Jan, Pneumonia of both lower lobe s due to infectious organism J18.1 and Morbid obesity E66.01 [facility] [address] [facility] [id number] [address] [place] [phone] Jan, [facility] [address] [facility] [id number] [address] [place] [phone] Jan, Major depressive disorder in full remission F32.5 and Panic disorder without agoraphobia F41.0 [facility] [address] [facility] [id number] [address] [place] [phone] Jan, [facility] [address] [facility] [id number] [address] [place] [phone] Jan, Major depressive disorder, r ecurrent episode, moderate F33.1 ; Panic disorder without agoraphobia F41.0 and Morbid obesity E66.01 [facility] [address] [facility] [id number] [address] [place] [phone] Dec, Bilious vomiting with nausea R11.14 ; Coughing R05 and Choking, subsequent encounter T17.308D [facility] [address] [facility] [id number] [address] [place] [phone] Dec, Morbid obesity E66.01 [facility] [address] [facility] [id number] [address] [place] [phone] Dec, Major depressive disorder, r ecurrent episode, moderate F33.1 and Panic disorder without agoraphobia F41.0 [facility] [address] [facility] [id number] [address] [place] [phone] Dec, [facility] [address] [facility] [id number] [address] [place] [phone] Dec, Major depressive disorder, r ecurrent episode, moderate F33.1 [place] [address] [place] [id number] [place] [address] Nov, Major depressive disorder, r ecurrent episode, moderate F33.1 ; Panic disorder without agoraphobia F41.0 and Morbid obesity E66.01 [place] [address] [place] [id number] [place] [phone] Nov, Morbid obesity E66.01 [place] [address] [place] [id number] [place] [phone] Nov, Major depressive disorder, r ecurrent episode, moderate F33.1 and Panic disorder without agoraphobia F41.0 [facility] [address] [place] [id number] [place] [phone] Nov, Allergic reaction, initial e ncounter T78.40XA and Morbid obesity E66.01 [place] [address] [place] [id number] [address] [place] [address] Nov, [place] [address] [address] Nov, Morbid obesity E66.01 ; Swal lowing problem R13.10 and Hypertension, benign I10 [facility] [place] [address] [address] [place] [id number] [place] [phone] Nov, Morbid obesity E66.01 ; COPD exacerbation J44.1 and Non- recurrent acute suppurative otitis media of left ear without spontaneous rupture of tympanic membrane H66.002 [place] [address] [place] [id number] [place] [phone] 07 Nov, 2018 Onychomycosis B35.1 ; Neurop athy G62.9 and Fissure in skin of foot R23.4 [place] [address] [place] [id number] [place] [phone] October, Major depressive disorder, r ecurrent episode, moderate F33.1 ; Panic disorder without agoraphobia F41.0 and Morbid obesity E66.01 [facility] [address] [id number] [address] [place] [phone] October, Viral upper respiratory trac t infection J06.9 [facility] [address] [id number] [address] [place] [phone] October, [facility] [address] [facility] [id number] [address] [place] [phone] October, Major depressive disorder, r ecurrent episode, moderate F33.1 and Panic disorder without agoraphobia F41.0 [facility] [address] [id number] [address] [place] [phone] October, [facility] [address] [facility] [id number] [address] [place] [phone] October, [facility] [address] [facility] [id number] [address] [place] [phone] October, [facility] [address] [id number] [address] [place] [phone] October, [facility] [address] [facility] [id number] [address] [place] [phone] October, [facility] [address] [facility] [id number] [address] [place] [phone] October, [facility] [address] [facility] [id number] [address] [place] [phone] October, Major depressive disorder, r ecurrent episode, moderate F33.1 and Panic disorder without agoraphobia F41.0 [facility] [address] [id number] [address] [place] [phone] Sep, Morbid obesity E66.01 and Vane mbar neuritis M54.16 [facility] [address] [id number] [address] [place] [phone] Sep, Panic disorder without agora phobia F41.0 and Major depressive disorder, recurrent episode, moderate F33.1 [facility] [address] [facility] [id number] [address] [place] [phone] Sep, Gastroenteritis K52.9 ; Low back pain M54.5 ; Other chronic pain G89.29 and Morbid obesity E66.01 [facility] [address] [place] [phone] Sep, Major depressive disorder, r ecurrent episode, moderate F33.1 ; Panic disorder without agoraphobia F41.0 and Social phobia F40.10 [place] [address] [place] [address] Sep, Panic disorder without agora phobia F41.0 [facility] [address] [place] [id number] [address] [place] [phone] Sep, Panic disorder without agora phobia F41.0 [facility] [address] [address] Aug, Panic disorder without agora phobia F41.0 ; Major depressive disorder, recurrent episode, moderate F33.1 ; Social phobia F40.10 ; Psychotic disorder F29 ; Tardive dyskinesia G24.01 and Morbid obesity E66.01 [facility] [address] [place] [id number] [address] [place] [phone] Aug, Dysthymic disorder F34.1 and Psychotic disorder F29 [place] [address] [address] Aug, Encounter for Medicare annua l wellness exam Z00.00 ; Morbid obesity E66.01 and 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.610 [place] [address] [place] [id number] [address] [place] [address] Aug, Dysthymic disorder F34.1 and Psychotic disorder F29 [facility] [address] [place] [phone] Aug, Neuropathy G62.9 ; Onychomyc osis B35.1 and Xerosis of skin L85.3 [place] [address] [address] Jul, [place] [address] [address] Jul, Mood disorder F39 ; Wheezing R06.2 ; Choking, initial encounter T17.308A and Coughing R05 [place] [address] [address] Jul, Low back pain M54.5 [facility] [address] [address] Jun, Flu-like symptoms R68.89 ; B FL 45.0-49.9, adult Z68.42 ; COPD exacerbation J44.1 and Acute bronchitis J20.9 [place] [address] [address] Jun, [place] [address] [address] May, [place] [address] [address] May, Onychomycosis B35.1 and 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.610 [place] [address] [address] May, Low back pain M54.5 and Abdoulaye a leg R60.0 [place] [address] [address] May, BMI 45.0-49.9, adult Z68.42 ; Well woman exam with routine gynecological exam Z01.419 and Breast cancer screening Z12.31 [place] [address] [address] Apr, Arthritis M19.90 [place] [address] [address] 16 Apr, 2018 Arthritis M19.90 and Otalgia of both ears H92.03 [place] [address] [address] 28 Feb, 2018 [place] [address] [address] 28 Feb, 2018 Low back pain M54.5 ; Other chronic pain G89.29 ; Exertional asthma J45.990 and Encounter for immunization Z23 [place] [address] [address] 21 Feb, 2018 Skin fissures R23.4 ; Neurop athy G62.9 and Onychomycosis B35.1 [place] [address] [address] 05 Feb, 2018 Dysthymic disorder F34.1 [place] [address] [address] 04 Feb, 2018 [place] [address] [address] Jan, [place] [address] [address] Jan, Abrasion of right elbow, ini tial encounter S50.311A ; Abrasion, right knee, initial encounter S80.211A and Sprain of other ligament of right ankle, initial encounter S93.491A [facility] [address] [address] Jan, [facility] [address] [address] Jan, Injury of left ankle, initia l encounter S99.912A ; Fall down stairs, initial encounter W10.8XXA and BMI 45.0-49.9, adult Z68.42 [place] [address] [address] Jan, COPD exacerbation J44.1 [facility] [address] [facility] [id number] [address] [place] [phone] Jan, 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 [facility] [address] [place] [id number] [place] [address] Jan, Bronchitis J40 and Acute sup purative otitis media of left ear without spontaneous rupture of tympanic membrane, recurrence not specified H66.002 [facility] [address] [place] [id number] [place] [address] Jan, [place] [address] [place] [id number] [place] [address] Jan, Bronchitis J40 and BMI 40.0- 44.9, adult Z68.41 [place] [address] [place] [id number] [place] [address] Jan, [place] [address] [place] [id number] [place] [address] Dec, Gastric pain R10.9 [place] [address] [place] [id number] [place] [phone] Dec, [facility] [address] [place] [id number] [place] [address] Dec, History of illicit drug use Z87.898 ; Neuropathy G62.9 ; COPD (chronic obstructive pulmonary disease) with chronic bronchitis J44.9 and Acute pain of right knee M25.561 [place] [id number] [place] [id number] [place] [address] Nov, [place] [address] [place] [id number] [place] [address] Nov, Onychomycosis B35.1 and Cont usion of left foot, subsequent encounter S90.32XD [place] [address] [place] [id number] [place] [phone] Nov, COPD exacerbation J44.1 [place] [address] [place] [id number] [address] [place] [address] Sep, [place] [address] [address] 30 Sep, 2017 Dysthymic disorder F34.1 ; T obacco abuse Z72.0 ; Pain in right knee M25.561 ; Pain in left knee M25.562 ; Other chronic pain G89.29 and BMI 40.0- 44.9, adult Z68.41 [place] [address] [address] Aug, Major depressive disorder, r ecurrent episode, moderate F33.1 and Social phobia F40.10 [place] [address] [address] 14 Aug, 2017 Dysthymic disorder F34.1 ; N on-pressure chronic ulcer of left thigh, unspecified ulcer stage L97.129 ; Tobacco abuse Z72.0 ; Mild chronic obstructive pulmonary disease J44.9 and Forgetfulness R68.89 [place] [address] [address] 09 Aug, 2017 Onychomycosis B35.1 ; Fissur e in skin of foot R23.4 and Foot callus L84 [facility] [address] [address] Jul, Right medial knee pain M25.5 61 ; Upper respiratory tract infection, unspecified type J06.9 and BMI 40.0-44.9, adult Z68.41 [facility] [address] [address] 08 Jul, 2017 Nausea and vomiting, intract ability of vomiting not specified, unspecified vomiting type R11.2 ; Left ear pain H92.02 and Gastric pain R10.9 [place] [address] [place] [id number] [address] [place] [address] Apr, Encounter for immunization Z 23 [place] [address] [id number] [address] [place] [address] Apr, Onychomycosis B35.1 ; Xerosi s of skin L85.3 ; Neuropathy G62.9 and 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 [facility] [address] [id number] [address] [place] [address] Jan, Onychomycosis B35.1 and Neur opathy G62.9 [facility] [address] [id number] [address] [place] [phone] Dec, [facility] [address] [id number] [address] [place] [phone] Dec, [facility] [address] [facility] [id number] [address] [place] [address] Nov, [facility] [address] [facility] [id number] [address] [place] [phone] Aug, [facility] [address] [facility] [id number] [address] [place] [phone] Aug, [facility] [address] [facility] [id number] [address] [place] [phone] Jul, [facility] [address] [facility] [id number] [address] [place] [phone] Jul, [facility] [address] [facility] [id number] [address] [place] [phone] Jul, Decubitus ulcer of left thig h, stage 2 L89.892 [facility] [address] [id number] [address] [place] [address] Jul, Decubitus ulcer of left thig h, stage 2 L89.892 [facility] [address] [facility] [id number] [address] [place] [phone] Jul, [facility] [address] [facility] [id number] [address] [place] [address] Jul, Decubitus ulcer of left thig h, stage 2 L89.892 [facility] [address] [id number] [address] [place] [address] 14 Jul, 2016 [facility] [address] [id number] [address] [place] [phone] 13 Jul, 2016 Cellulitis of other specifie d site L03.818 ; Illicit drug use F19.90 and Decubitus ulcer of left thigh, stage 2 L89.892 [facility] [address] [id number] [address] [place] [phone] 08 Jul, 2016 [facility] [address] [id number] [address] [place] [phone] 06 Jul, 2016 Cellulitis of right breast N 61.0 [facility] [address] [facility] [place] [id number] [address] [place] [phone] Jun, [facility] [address] [facility] [place] [id number] [address] [place] [phone] Jun, [facility] [address] [id number] [address] [place] [phone] Jun, Wheezing R06.2 and Arthralgi a, unspecified joint M25.50 [facility] [address] [facility] [place] [id number] [address] [place] [phone] May, [facility] [address] [facility] [place] [id number] [address] [place] [phone] May, [facility] [address] [facility] [place] [id number] [address] [place] [phone] May, [facility] [address] [facility] [place] [id number] [address] [place] [phone] May, Shortness of breath R06.02 [facility] [address] [facility] [place] [id number] [address] [place] [phone] May, Onychomycosis B35.1 and Fiss ure in skin of foot R23.4 [facility] [address] [id number] [address] [place] [phone] 28 Apr, 2016 [facility] [facility] [address] [id number] [address] [place] [id number] 18 Apr, 2016 Dizziness R42 [facility] [address] [facility] [place] [id number] [address] [place] [id number] 14 Apr, 2016 Shortness of breath R06.02 ; Essential hypertension I10 ; Dizziness R42 and On home oxygen therapy Z99.81 [facility] [address] [id number] [address] [place] [id number] 10 Apr, 2016 [facility] [address] [id number] [address] [place] [id number] 08 Apr, 2016 [facility] [address] [id number] [address] [place] [phone] Apr, [facility] [address] [id number] [address] [place] [phone] Apr, [facility] [address] [id number] [address] [place] [phone] Apr, [facility] [address] [id number] [address] [place] [id number] Apr, [facility] [address] [id number] [address] [place] [phone] Apr, [facility] [address] [id number] [address] [place] [phone] Mar, Mild chronic obstructive pul monary disease J44.9 [facility] [address] [id number] [address] [place] [phone] Mar, [facility] [address] [facility] [place] [id number] [address] [place] [phone] Mar, Epigastric pain R10.13 ; Low back pain M54.5 ; Other chronic pain G89.29 and Breast cancer screening Z12.39 [facility] [address] [facility] [place] [id number] [address] [place] [id number] Mar, [facility] [address] [facility] [place] [id number] [address] [place] [phone] Mar, [facility] [address] [facility] [place] [id number] [address] [place] [id number] Feb, [facility] [address] [facility] [place] [id number] [address] [place] [phone] Feb, [facility] [address] [facility] [place] [id number] [address] [place] [id number] Feb, Fissure in skin of foot R23. 4 and Onychomycosis B35.1 [facility] [address] [facility] [place] [id number] [address] [place] [phone] Jan, Agoraphobia F40.00 [place] [place] [address] [place] [id number] [address] [place] [phone] Dec, Agoraphobia F40.00 [place] [address] [facility] [place] [id number] [address] [place] [phone] Dec, Mild persistent asthma witho ut complication J45.30 ; Dysthymic disorder F34.1 and Upper respiratory tract infection, unspecified type J06.9 [place] [address] [place] [id number] [address] [place] [id number] Nov, Agoraphobia F40.00 [place] [address] [place] [id number] [address] [place] [phone] October, Agoraphobia F40.00 [facility] [address] [facility] [place] [id number] [address] [place] [phone] Sep, Panic disorder without agora phobia F41.0 ; Agoraphobia F40.00 and Dysthymic disorder F34.1 [facility] [address] [facility] [place] [id number] [address] [place] [phone] Sep, Panic attacks F41.0 [place] [address] [address] Sep, [place] [address] [address] Sep, Panic disorder without agora phobia F41.0 ; Varicose veins of both lower extremities I83.93 and Fatigue R53.83 [place] [address] [address] Sep, Fatigue R53.83 [place] [address] [address] Sep, [place] [address] [address] Aug, [place] [address] [address] Aug, [place] [address] [address] Aug, Type 2 diabetes mellitus wit h diabetic neuropathic arthropathy E11.610 [place] [address] [address] Aug, Panic disorder without agora phobia F41.0 ; Agoraphobia F40.00 and Dysthymic disorder F34.1 [place] [address] [address] Aug, Shortness of breath R06.02 ; Panic attacks F41.0 ; COPD (chronic obstructive pulmonary disease) J44.9 ; Tobacco abuse Z72.0 ; Family history of diabetes mellitus Z83.3 and Weight gain R63.5 [place] [address] [address] Aug, [place] [address] [address] Jul, [place] [address] [address] Jun, Onychomycosis B35.1 ; Neurop athy G62.9 and Impaired circulation I99.9 [facility] [address] [facility] [place] [id number] [address] [place] [phone] Mar, Fissure in skin of foot R23. 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 [facility] [address] [place] [id number] [address] [place] [phone] 18 Feb, 2015 Family history of coronary a rteriosclerosis V17.3 [facility] [address] [place] [id number] [address] [place] [id number] 15 Feb, 2015 Allergic rhinitis due to darien agnieszka 477.0 ; Unspecified breast screening V76.10 ; Anxiety 300.00 and Family history of coronary arteriosclerosis V17.3 [place] [address] [place] [id number] [address] [place] [id number] Jan, [facility] [address] [place] [id number] [address] [place] [phone] Dec, [facility] [address] [place] [id number] [address] [place] [phone] Dec, Onychomycosis 110.1 and Skin fissures 709.8 [facility] [address] [place] [id number] [address] [place] [phone] Sep, [facility] [address] [facility] [place] [id number] [address] [place] [phone] Sep, [facility] [address] [place] [id number] [address] [place] [phone] Aug, [facility] [address] [place] [id number] [address] [place] [phone] Aug, [facility] [address] [place] [id number] [address] [place] [phone] Jul, [facility] [address] [place] [id number] [address] [place] [phone] Jul, [facility] [address] [id number] [address] [place] [address], [place] [id number] Jun, [facility] [address] [id number] [address] [place] [address], [place] [address] Jun, [facility] [address] [id number] [address] [place] [address], [place] [id number] Jun, [facility] [address] [id number] [address] [place] [address], [place] [address] Jun, [facility] [address] [id number] [address] [place] [address], [place] [id number] Jun, [facility] [address] [id number] [address] [place] [address], [place] [address] May, [facility] [address] [id number] [address] [place] [address], [place] [address] May, [facility] [address] [id number] [address] [place] [address], [place] [address] May, [facility] [address] [id number] [address] [place] [address], [place] [address] May, [facility] [address] [id number] [address] [place] [address], [place] [address] May, [facility] [address] [id number] [address] [place] [address], [place] [address] May, [facility] [address] [id number] [address] [place] [address], [place] [address] May, [facility] [address] [id number] [address] [place] [address], [place] [address] May, [facility] [address] [id number] [address] [place] [address], [place] [address] Apr, [facility] [address] [id number] [address] [place] [address], [place] [id number] Apr, [facility] [address] [id number] [address] [place] [address], [place] [address] Apr, [facility] [address] [id number] [address] [place] [address], [place] [address] Apr, [facility] [address] [id number] [address] [place] [address], [place] [id number] Apr, [facility] [address] [id number] [address] [place] [address], [place] [address] Apr, [facility] [address] [id number] [address] [place] [address], [place] [address] Apr, [facility] [address] [id number] [address] [place] [address], [place] [address] Apr, [facility] [address] [id number] [address] [place] [address], [place] [address] Apr, [facility] [address] [id number] [address] [place] [address], [place] [id number] Apr, [facility] [address] [id number] [address] [place] [address], [place] [id number] Mar, [facility] [address] [id number] [address] [place] [address], [place] [address] Mar, [facility] [address] [id number] [address] [place] [address], [place] [address] Mar, [facility] [address] [id number] [address] [place] [address], [place] [id number] Mar, [facility] [address] [id number] [address] [place] [address], [place] [id number] Mar, [facility] [address] [id number] [address] [place] [address], [place] [address] Mar, [facility] [address] [id number] [address] [place] [address], [place] [address] Mar, [facility] [address] [id number] [address] [place] [address], [place] [id number] Mar, [facility] [address] [id number] [address] [place] [address], [place] [id number] 24 Mar, 2014 [facility] [address] [id number] [address] [place] [address], [place] [address] 23 Mar, 2014 [facility] [address] [id number] [address] [place] [address], [place] [address] Mar, [facility] [address] [id number] [address] [place] [address], [place] [address] Mar, [facility] [address] [id number] [address] [place] [address], [place] [id number] Mar, [facility] [address] [id number] [address] [place] [address], [place] [address] Mar, [facility] [address] [id number] [address] [place] [address], [place] [address] Mar, [facility] [address] [id number] [address] [place] [address], [place] [address] Mar, [facility] [address] [id number] [address] [place] [address], [place] [address] 20 Mar, 2014 [facility] [address] [id number] [address] [place] [id number] 16 Mar, 2014 [facility] [address] [id number] [address] [place] [id number] 16 Mar, 2014 [facility] [address] [id number] [address] [place] [id number] 15 Mar, 2014 [facility] [address] [id number] [address] [place] [address], [place] [id number] 14 Mar, 2014 [facility] [address] [id number] [address] [place] [address], [place] [address] 14 Mar, 2014 [facility] [address] [id number] [address] [place] [id number] 14 Mar, 2014 [facility] [address] [id number] [address] [place] [id number] 14 Mar, 2013 [facility] [address] [id number] [address] [place] [address], [place] [address] 09 Mar, 2013 [facility] [address] [id number] [address] [place] [id number] 09 Mar, 2013 [facility] [address] [id number] [address] [place] [address], [place] [address] 09 Mar, 2013 [facility] [address] [id number] [address] [place] [address], [place] [address] 09 Mar, 2013 [facility] [address] [id number] [address] [place] [address], [place] [id number] 30 Sep, 2013 [facility] [address] [id number] [address] [place] [address], [place] [address] 30 Sep, 2013 [facility] [address] [id number] [address] [place] [id number] 30 Sep, 2013 [facility] [address] [id number] [address] [place] [address], [place] [address] 30 Sep, 2013 [facility] [address] [id number] [address] [place] [address], [place] [id number] 26 Sep, 2013 [facility] [address] [id number] [address] [place] [address], [place] [id number] 26 Sep, 2013 [facility] [address] [id number] [address] [place] [address], [place] [address] 09 Sep, 2013 [facility] [address] [id number] [address] [place] [id number] 09 Sep, 2013 [facility] [address] [id number] [address] [place] [address], [place] [address] 03 Sep, 2013 [facility] [address] [id number] [address] [place] [address], [place] [address] 03 Sep, 2013 [facility] [address] [id number] [address] [place] [address], [place] [address] 03 Sep, 2013 [facility] [address] [id number] [facility] [place] [address] Feb, [facility] [address] [id number] [facility] [place] [address] Jan, [facility] [address] [id number] [facility] [place] [address] Jan, [facility] [address] [id number] [address] [place] [address], [place] [address] Jan, [facility] [address] [id number] [address] [place] [address], [place] [address] Jan, [facility] [address] [id number] [address] [place] [address], [place] [address] Jan, [facility] [address] [id number] [address] [place] [address], [place] [address] Jan, [facility] [address] [id number] [address] [place] [address], [place] [address] Jan, [facility] [address] [id number] [address] [place] [address], [place] [address] Jan, [facility] [address] [id number] [address] [place] [address], [place] [address] Jan, [facility] [address] [id number] [address] [place] [address], [place] [address] Jan, [facility] [address] [id number] [address] [place] [address], [place] [id number] Jan, [facility] [address] [id number] [address] [place] [address], [place] [address] Jan, [facility] [address] [id number] [address] [place] [address], [place] [address] Jan, [facility] [address] [id number] [address] [place] [address], [place] [address] Dec, [facility] [address] [id number] [address] [place] [address], [place] [address] Dec, [facility] [address] [id number] [facility] [place] [address] Dec, [facility] [address] [id number] [facility] [place] [address] Dec, [facility] [address] [id number] [facility] [place] [address] Dec, [facility] [address] [id number] [address] [place] [address], [place] [address] Dec, [facility] [address] [id number] [facility] [place] [address] Dec, [facility] [address] [id number] [address] [place] [address], [place] [address] Dec, [facility] [address] [id number] [address] [place] [address], [place] [address] Dec, 2013 [facility] [address] [id number] [address] [place] [address], [place] [address] Dec, 2013 [facility] [address] [id number] [address] [place] [address], [place] [address] Dec, [facility] [address] [id number] [address] [place] [address], [place] [address] Dec, 2013 [facility] [address] [id number] [address] [place] [address], [place] [address] Dec, 2013 [facility] [address] [id number] [address] [place] [address], [place] [address] Dec, 2013 [facility] [address] [id number] [address] [place] [address], [place] [address] Dec, [facility] [address] [id number] [address] [place] [address], [place] [address] Dec, 2013 [facility] [address] [id number] [address] [place] [address], [place] [address] Dec, 2013 [facility] [address] [id number] [facility] [place] [address] 08 Dec, 2013 [facility] [address] [id number] [address] [place] [address], [place] [address] Nov, [facility] [address] [id number] [facility] [place] [address] Nov, [facility] [address] [id number] [address] [place] [address], [place] [address] Nov, [facility] [address] [id number] [address] [place] [address], [place] [address] Nov, [facility] [address] [id number] [address] [place] [address], [place] [address] Nov, [facility] [address] [id number] [address] [place] [address], [place] [address] Nov, [facility] [address] [id number] [address] [place] [address], [place] [address] Nov, [facility] [address] [id number] [address] [place] [address], [place] [address] Nov, [facility] [address] [id number] [address] [place] [address], [place] [address] Nov, [facility] [address] [id number] [address] [place] [address], [place] [address] Nov, [facility] [address] [id number] [address] [place] [address], [place] [address] Nov, [facility] [address] [id number] [address] [place] [address], [place] [address] Nov, [facility] [address] [id number] [address] [place] [address], [place] [address] Nov, [facility] [address] [id number] [address] [place] [address], [place] [id number] Nov, [facility] [address] [id number] [address] [place] [address], [place] [id number] Nov, [facility] [address] [id number] [address] [place] [address], [place] [id number] Nov, [facility] [address] [id number] [address] [place] [address], [place] [id number] Nov, [facility] [address] [id number] [address] [place] [address], [place] [id number] Nov, [facility] [address] [id number] [address] [place] [address], [place] [id number] Nov, [facility] [address] [id number] [address] [place] [address], [place] [id number] Nov, [facility] [address] [id number] [address] [place] [address], [place] [id number] October, [facility] [address] [id number] [address] [place] [address], [place] [id number] October, [facility] [address] [id number] [address] [place] [address], [place] [id number] October, [facility] [address] [id number] [address] [place] [address], [place] [id number] October, [facility] [address] [id number] [address] [place] [address], [place] [id number] Sep, [facility] [address] [id number] [address] [place] [address], [place] [id number] Sep, [facility] [address] [id number] [address] [place] [address], [place] [id number] Sep, [facility] [address] [id number] [address] [place] [address], [place] [id number] Sep, [facility] [address] [id number] [address] [place] [address], [place] [id number] Sep, [facility] [address] [id number] [address] [place] [address], [place] [id number] Sep, [facility] [address] [id number] [address] [place] [address], [place] [id number] Sep, [facility] [address] [id number] [facility] [place] [id number] Sep, [facility] [address] [id number] [address] [place] [address], [place] [id number] Sep, [facility] [address] [id number] [address] [place] [address], [place] [id number] Aug, [facility] [address] [id number] [address] [place] [address], [place] [id number] Aug, [facility] [address] [id number] [address] [place] [address], [place] [id number] Aug, [facility] [address] [id number] [address] [place] [address], [place] [id number] Aug, [facility] [address] [id number] [address] [place] [address], [place] [id number] Aug, [facility] [address] [id number] [address] [place] [address], [place] [id number] Aug, [facility] [address] [id number] [address] [place] [address], [place] [id number] Aug, [facility] [address] [id number] [address] [place] [address], [place] [id number] Aug, [facility] [address] [id number] [address] [place] [address], [place] [id number] Jul, [facility] [address] [id number] [address] [place] [address], [place] [id number] Jul, [facility] [address] [id number] [address] [place] [address], [place] [id number] Jun, [facility] [address] [id number] [address] [place] [address], [place] [id number] Jun, [facility] [address] [id number] [address] [place] [address], [place] [id number] Jun, [facility] [address] [id number] [address] [place] [address], [place] [id number] Jun, [facility] [address] [id number] [address] [place] [address], [place] [id number] Jun, [facility] [address] [id number] [address] [place] [address], [place] [id number] Jun, [facility] [address] [id number] [address] [place] [address], [place] [id number] Jun, [facility] [address] [id number] [address] [place] [address], [place] [id number] Jun, [facility] [address] [id number] [address] [place] [address], [place] [id number] Jun, [facility] [address] [id number] [address] [place] [address], [place] [id number] Jun, [facility] [address] [id number] [address] [place] [address], [place] [id number] Jun, [facility] [address] [id number] [address] [place] [address], [place] [id number] Jun, [facility] [address] [id number] [address] [place] [address], [place] [id number] May, [facility] [address] [id number] [address] [place] [address], [place] [id number] May, [facility] [address] [id number] [address] [place] [address], [place] [id number] May, [facility] [address] [id number] [address] [place] [address], [place] [id number] May, [facility] [address] [id number] [address] [place] [address], [place] [id number] May, [facility] [address] [id number] [address] [place] [address], [place] [id number] May, [facility] [address] [id number] [address] [place] [address], [place] [address] May, [facility] [address] [id number] [address] [place] [address], [place] [address] May, [facility] [address] [id number] [address] [place] [address], [place] [address] May, [facility] [address] [id number] [address] [place] [address], [place] [address] May, [facility] [address] [id number] [address] [place] [address], [place] [address] May, [facility] [address] [id number] [address] [place] [address], [place] [address] May, [facility] [address] [id number] [address] [place] [address], [place] [address] May, [facility] [address] [id number] [address] [place] [address], [place] [id number] Apr, [facility] [address] [id number] [address] [place] [address], [place] [id number] Apr, [facility] [address] [id number] [address] [place] [address], [place] [address] Mar, [facility] [address] [id number] [address] [place] [address], [place] [address] Mar, [facility] [address] [id number] [address] [place] [address], [place] [id number] 24 Feb, 2013 [facility] [address] [id number] [address] [place] [id number] Feb, [facility] [address] [id number] [address] [place] [address], [place] [id number] 05 Feb, 2013 [facility] [address] [id number] [address] [place] [address], [place] [id number] 04 Feb, 2013 [facility] [address] [id number] [address] [place] [address], [place] [address] Jan, [facility] [address] [id number] [address] [place] [address], [place] [id number] Jan, [facility] [address] [id number] [address] [place] [address], [place] [address] Jan, [facility] [address] [id number] [address] [place] [address], [place] [address] Jan, [facility] [address] [id number] [address] [place] [address], [place] [address] Jan, [facility] [address] [id number] [address] [place] [address], [place] [address] Jan, [facility] [address] [id number] [address] [place] [address], [place] [id number] Dec, [facility] [address] [id number] [address] [place] [address], [place] [id number] Dec, [facility] [address] [id number] [address] [place] [address], [place] [id number] Dec, [facility] [address] [id number] [address] [place] [address], [place] [address] Dec, [facility] [address] [id number] [address] [place] [address], [place] [address] Nov, [facility] [address] [id number] [address] [place] [address], [place] [id number] October, [facility] [address] [id number] [address] [place] [address], [place] [address] October, [facility] [address] [id number] [address] [place] [address], [place] [address] October, [facility] [address] [id number] [address] [place] [address], [place] [address] Sep, [facility] [address] [id number] [address] [place] [address], [place] [id number] Sep, [facility] [address] [id number] [address] [place] [address], [place] [address] Jun, [facility] [address] [id number] [address] [place] [address], [place] [id number] Jun, [facility] [address] [id number] [address] [place] [address], [place] [address] Jun, [facility] [address] [id number] [address] [place] [address], [place] [address] Apr, [facility] [address] [id number] [address] [place] [address], [place] [id number] Apr, [facility] [address] [id number] [address] [place] [address], [place] [address] Apr, [facility] [address] [id number] [address] [place] [address], [place] [id number] Apr, [facility] [address] [id number] [address] [place] [address], [place] [id number] Mar, [facility] [address] [id number] [address] [place] [address], [place] [address] Mar, [facility] [address] [id number] [address] [place] [address], [place] [id number] Mar, [facility] [address] [id number] [address] [place] [address], [place] [address] Mar, [facility] [address] [id number] [address] [place] [address], [place] [address] 29 Feb, 2012 [facility] [address] [id number] [address] [place] [address], [place] [id number] 27 Feb, 2012 [facility] [address] [id number] [address] [place] [address], [place] [id number] 20 Feb, 2012 [facility] [address] [id number] [address] [place] [address], [place] [id number] 30 Jan, 2012 [facility] [address] [id number] [address] [place] [address], [place] [id number] 16 Jan, 2012 [facility] [address] [id number] [address] [place] [address], [place] [id number] Jan, [facility] [address] [id number] [address] [place] [address], [place] [id number] Jan, [facility] [address] [id number] [address] [place] [address], [place] [address] Dec, [facility] [address] [id number] [address] [place] [address], [place] [id number] Dec, [facility] [address] [id number] [address] [place] [address], [place] [address] Nov, [facility] [address] [id number] [address] [place] [address], [place] [id number] Nov, [facility] [address] [id number] [address] [place] [address], [place] [id number] October, [facility] [address] [id number] [address] [place] [address], [place] [address] October, [facility] [address] [id number] [address] [place] [address], [place] [address] October, [facility] [address] [id number] [address] [place] [address], [place] [id number] Sep, [facility] [address] [id number] [address] [place] [address], [place] [address] Sep, [facility] [address] [id number] [address] [place] [address], [place] [address] Sep, [facility] [address] [id number] [address] [place] [address], [place] [address] Aug, [facility] [address] [id number] [address] [place] [address], [place] [id number] Aug, [facility] [address] [id number] [address] [place] [address], [place] [address] Aug, [facility] [address] [id number] [address] [place] [address], [place] [address] Aug, [facility] [address] [id number] [address] [place] [address], [place] [address] Aug, [facility] [address] [id number] [address] [place] [address], [place] [id number] Jul, [facility] [address] [id number] [address] [place] [address], [place] [id number] 16 Jul, 2011 [facility] [address] [id number] [address] [place] [address], [place] [address] Jul, 2011 [facility] [address] [id number] [address] [place] [address], [place] [id number] Jul, [facility] [address] [id number] [address] [place] [address], [place] [address] Jul, [facility] [address] [id number] [address] [place] [address], [place] [address] Jul, [facility] [address] [id number] [address] [place] [address], [place] [address] Jul, [facility] [address] [id number] [address] [place] [address], [place] [id number] Jul, [facility] [address] [id number] [address] [place] [address], [place] [id number] Jun, [facility] [address] [id number] [address] [place] [address], [place] [address] Jun, [facility] [address] [id number] [address] [place] [address], [place] [id number] May, [facility] [address] [id number] [address] [place] [address], [place] [address] May, [facility] [address] [id number] [address] [place] [address], [place] [address] May, [facility] [address] [id number] [address] [place] [address], [place] [address] May, [facility] [address] [id number] [address] [place] [address], [place] [id number] Apr, [facility] [address] [id number] [address] [place] [address], [place] [address] Apr, [facility] [address] [id number] [address] [place] [address], [place] [address] Apr, [facility] [address] [id number] [address] [place] [address], [place] [id number] Mar, [facility] [address] [id number] [address] [place] [address], [place] [address] Mar, [facility] [address] [id number] [address] [place] [address], [place] [id number] Mar, [facility] [address] [id number] [address] [place] [address], [place] [address] Mar, [facility] [address] [id number] [address] [place] [address], [place] [address] Dec, [facility] [address] [id number] [address] [place] [address], [place] [address] October, [facility] [address] [id number] [address] [place] [address], [place] [address] May, [facility] [address] [id number] [address] [place] [address], [place] [address] May, [facility] [address] [id number] [address] [place] [address], [place] [address] May, [facility] [address] [id number] [address] [place] [address], [place] [address] 06 May, 2010 [facility] [address] [id number] [address] [place] [address], [place] [id number] Mar, [facility] [address] [id number] [address] [place] [address], [place] [address] Mar, [facility] [address] [id number] [address] [place] [address], [place] [id number] 31 May, 2009 [facility] [address] [id number] [address] [place] [id number] May, [facility] [address] [facility] [place] [id number] [address] [place] [id number] May, [facility] [address] [facility] [place] [id number] [address] [place] [id number] May, [facility] [address] [facility] [place] [id number] [address] [place] [id number] Apr, [facility] [address] [facility] [place] [id number] [address] [place] [id number] Apr, [facility] [address] [facility] [place] [id number] [address] [place] [id number] October, IMMUNIZATIONS No Known Immunizations SOCIAL HISTORY [...]
--- OUTSIDE RECORDS SUMMARY | 2020-01-13 11:43 | XMS REPORT ---
Author Author Monique RAHMAN [facility] Address [address] [place] [address] Care Team Providers Care Cable Splicer Name Role Phone RASHEED RAHMAN Unavailable PROBLEMS Type Condition ICD9-CM Code [id number] Code Onset Dates Condition S tatus SNOMED Code Problem History of illicit drug use Z87.898 Ac tive 630053754 Problem Snoring R06.83 Active 76740653 Problem Impaired circulation I99.9 Active 68955740 Problem MRSA (methicillin resistant staph aureus) culture positive Z22.322 Active 250826251 Problem Panic disorder without agoraphobia F41.0 Active 67942285 Problem Dysthymic disorder F34.1 Active 7 7806663 Problem Mood disorder F39 Active 117315 05 Problem Arthritis M19.90 Active 0886176 Problem Mild chronic obstructive pulmonary disease J44.9 Active 666041320 Problem Mild persistent asthma without complication J45.30 Active 188267326 Problem Essential hypertension I10 Active 95301776 Problem On home oxygen therapy Z99.81 Active 088530115631 Problem Social phobia F40.10 Active 971165 02 Problem Neuropathy G62.9 Active 839086390 Problem 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 Active 052662346 Problem Major depressive disorder, recurrent episode, moderate F33.1 Active 213429457 Problem Psychotic disorder F29 Active 6 0998949 Problem Hypertension, benign I10 Active 29714554 Problem Onychomycosis B35.1 Active 100897 008 Problem Body mass index (BMI) 40.0-44.9, adult Z68.41 Active 070920510 Problem Varicose veins of both lower extremities I83.93 Active 11201972 Problem Sciatica, left side M54.32 Active 06710234 Problem Agoraphobia F40.00 Active 17679561 Problem Fatigue R53.83 Active 33612527 Problem Major depressive disorder in full remission F32.5 Active 70099557 Problem Slow transit constipation K59.01 Acti ve 36248861 Problem Chronic obstructive pulmonary disease, unspecified COPD ty pe J44.9 Active 74453319 Problem Unspecified psychosis not du e to a substance or known physiological condition F29 Active 888004844 ALLERGIES No Information ENCOUNTERS Encounter Location Date Diagnosis [place] [address] [address] Nov, [place] [address] [address] Sep, Abdominal pain, right upper quadrant R10.11 [place] [address] [address] Sep, Major depressive disorder, r ecurrent episode, moderate F33.1 ; Panic disorder without agoraphobia F41.0 and Morbid obesity E66.01 [place] [address] [address] Aug, Bronchitis J40 [place] [address] [address] Aug, Sciatica, left side M54.32 a nd Morbid obesity E66.01 [place] [address] [address] Aug, [place] [address] [address] Aug, Sciatica, left side M54.32 [place] [address] [address] Aug, Neuropathy G62.9 ; Onychomyc osis B35.1 ; Callus of foot L84 and Skin fissures R23.4 [place] [address] [address] [place] [id number] [place] [address] Jul, [place] [address] [address] Jul, Morbid obesity E66.01 [place] [address] [address] [place] [id number] [place] [address] Jul, Unspecified psychosis not du e to a substance or known physiological condition F29 ; Chronic obstructive pulmonary disease, unspecified COPD type J44.9 and Body mass index (BMI) 40.0-44.9, adult Z68.41 [place] [address] [address] Jun, [place] [address] [address] Jun, Morbid obesity E66.01 [place] [address] [address] May, Morbid obesity E66.01 [place] [address] [address] May, Encounter for immunization Z 23 [place] [address] [address] May, Major depressive disorder, r ecurrent episode, moderate F33.1 ; Panic disorder without agoraphobia F41.0 and Morbid obesity E66.01 [place] [address] [address] May, Major depressive disorder in full remission F32.5 and Panic disorder without agoraphobia F41.0 [place] [address] [address] [place] [id number] [place] [address] Apr, Morbid obesity E66.01 [place] [address] [address] Apr, Slow transit constipation K5 9.01 and Cellulitis of left lower extremity L03.116 [place] [address] [address] [place] [id number] [place] [address] Apr, Morbid obesity E66.01 [place] [address] [address] Apr, [place] [address] [address] Apr, Major depressive disorder, r ecurrent episode, moderate F33.1 and Panic disorder without agoraphobia F41.0 [place] [address] [address] Mar, Viral upper respiratory trac t infection J06.9 [place] [address] [address] Mar, Bronchitis J40 and Encounter for immunization Z23 [address] [address] Mar, Morbid obesity E66.01 [place] [address] [address] Feb, Major depressive disorder, r ecurrent episode, moderate F33.1 and Panic disorder without agoraphobia F41.0 [place] [address] [address] Feb, Morbid obesity E66.01 [place] [address] [address] Feb, Onychomycosis B35.1 ; 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 [id number] [address] [place] [address] Jan, [place] [address] [facility] [id number] [address] [place] [address] Jan, Major depressive disorder in full remission F32.5 and Panic disorder without agoraphobia F41.0 [place] [address] [facility] [id number] [address] [place] [address] Jan, [place] [address] [facility] [id number] [address] [place] [address] Jan, Major depressive disorder, r ecurrent episode, moderate F33.1 ; Panic disorder without agoraphobia F41.0 and Morbid obesity E66.01 [place] [address] [address] [place] [id number] [place] [address] Dec, Bilious vomiting with nausea R11.14 ; Coughing R05 and Choking, subsequent encounter T17.308D [place] [address] [address] [place] [id number] [place] [address] Dec, Morbid obesity E66.01 [place] [address] [facility] [id number] [address] [place] [address] Dec, Major depressive disorder, r ecurrent episode, moderate F33.1 and Panic disorder without agoraphobia F41.0 [place] [address] [facility] [id number] [address] [place] [address] Dec, [place] [address] [facility] [id number] [address] [place] [address] Dec, Major depressive disorder, r ecurrent episode, moderate F33.1 [place] [address] [facility] [id number] [address] [place] [address] Nov, Major depressive disorder, r ecurrent episode, moderate F33.1 ; Panic disorder without agoraphobia F41.0 and Morbid obesity E66.01 [place] [address] [address] 20 Nov, 2018 Morbid obesity E66.01 [place] [address] [address] Nov, Major depressive disorder, r ecurrent episode, moderate F33.1 and Panic disorder without agoraphobia F41.0 [facility] [place] [address] [address] Nov, Allergic reaction, initial e ncounter T78.40XA and Morbid obesity E66.01 [place] [address] [address] Nov, [place] [address] [address] Nov, Morbid obesity E66.01 ; Swal lowing problem R13.10 and Hypertension, benign I10 [facility]ALK IN [place] [address] [address] 07 Nov, 2018 Morbid obesity E66.01 ; COPD exacerbation J44.1 and Non- recurrent acute suppurative otitis media of left ear without spontaneous rupture of tympanic membrane H66.002 [place] [address] [address] 07 Nov, 2018 Onychomycosis B35.1 ; Neurop athy G62.9 and Fissure in skin of foot R23.4 [place] [address] [address] October, Major depressive disorder, r ecurrent episode, moderate F33.1 ; Panic disorder without agoraphobia F41.0 and Morbid obesity E66.01 [facility] IN [place] [address] [address] October, Viral upper respiratory trac t infection J06.9 [place] [address] [address] October, [facility] [address] [facility] [id number] [address] [place] [address] October, Major depressive disorder, r ecurrent episode, moderate F33.1 and Panic disorder without agoraphobia F41.0 [facility] [address] [id number] [address] [place] [address] October, [facility] [address] [facility] [id number] [address] [place] [address] October, [facility] [address] [id number] [address] [place] [address] October, [facility] [address] [facility] [id number] [address] [place] [address] October, [facility] [address] [facility] [id number] [address] [place] [address] October, [facility] [address] [facility] [id number] [address] [place] [address] October, [facility] [address] [facility] [id number] [address] [place] [address] October, Major depressive disorder, r ecurrent episode, moderate F33.1 and Panic disorder without agoraphobia F41.0 [facility] [address] [facility] [id number] [address] [place] [address] Sep, Morbid obesity E66.01 and Vane mbar neuritis M54.16 [facility] [address] [facility] [id number] [address] [place] [address] Sep, Panic disorder without agora phobia F41.0 and Major depressive disorder, recurrent episode, moderate F33.1 [facility] [address] [facility] [id number] [address] [place] [address] Sep, Gastroenteritis K52.9 ; Low back pain M54.5 ; Other chronic pain G89.29 and Morbid obesity E66.01 [facility] [address] [facility] [id number] [address] [place] [address] Sep, Major depressive disorder, r ecurrent episode, moderate F33.1 ; Panic disorder without agoraphobia F41.0 and Social phobia F40.10 [place] [address] [place] [address] Sep, Panic disorder without agora phobia F41.0 [place] [address] [address] [place] [id number] [address] [place] [address] Sep, Panic disorder without agora phobia F41.0 [place] [address] [address] Aug, Panic disorder without agora phobia F41.0 ; Major depressive disorder, recurrent episode, moderate F33.1 ; Social phobia F40.10 ; Psychotic disorder F29 ; Tardive dyskinesia G24.01 and Morbid obesity E66.01 [place] [address] [address] Aug, Dysthymic disorder F34.1 and Psychotic disorder F29 [place] [address] [address] Aug, [facility] Z[facility].00 ; Morbid obesity E66.01 and 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 [place] [address] [place] [id number] [address] [place] [address] Aug, Dysthymic disorder F34.1 and Psychotic disorder F29 [place] [address] [address] Aug, Neuropathy G62.9 ; Onychomyc osis B35.1 and Xerosis of skin L85.3 [place] [address] [address] [place] [id number] [address] [place] [address] Jul, [place] [address] [address] [place] [id number] [address] [place] [address] Jul, Mood disorder F39 ; Wheezing R06.2 ; Choking, initial encounter T17.308A and Coughing R05 [facility] [address] [address] Jul, Low back pain M54.5 [facility] [address] [place] [id number] [place] [address] Jun, Flu-like symptoms R68.89 ; B [place] 45.0-49.9, adult Z68.42 ; COPD exacerbation J44.1 and Acute bronchitis J20.9 [place] [address] [address] Jun, [place] [address] [address] May, [place] [address] [address] May, Onychomycosis B35.1 and 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 [place] [address] [address] May, Low back pain M54.5 and Abdoulaye a leg R60.0 [place] [address] [address] May, BMI 45.0-49.9, adult Z68.42 ; Well woman exam with routine gynecological exam Z01.419 and Breast cancer screening Z12.31 [place] [address] [address] Apr, Arthritis M19.90 [place] [address] [address] Apr, Arthritis M19.90 and Otalgia of both ears H92.03 [place] [address] [address] [place] [id number] [address] [place] [address] Feb, [place] [address] [address] Feb, Low back pain M54.5 ; Other chronic pain G89.29 ; Exertional asthma J45.990 and Encounter for immunization Z23 [facility] [address] [place] [address] Feb, Skin fissures R23.4 ; Neurop athy G62.9 and Onychomycosis B35.1 [facility] [address] [place] [id number] [place] [address] 05 Feb, 2018 Dysthymic disorder F34.1 [place] [address] [place] [address] 04 Feb, 2018 [place] [address] [address] Jan, [place] [address] [address] Jan, Abrasion of right elbow, ini tial encounter S50.311A ; Abrasion, right knee, initial encounter S80.211A and Sprain of other ligament of right ankle, initial encounter S93.491A [place] [address] [address] Jan, [facility] [address] [place] [id number] [place] [address] Jan, Injury of left ankle, initia l encounter S99.912A ; Fall down stairs, initial encounter W10.8XXA and BMI 45.0-49.9, adult Z68.42 [place] [address] [address] [place] [address] Jan, COPD exacerbation J44.1 [place] [address] [address] [place] [id number] [place] [address] Jan, 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 [place] [address] [address] [place] [id number] [place] [address] 08 Jan, 2018 Bronchitis J40 and Acute sup purative otitis media of left ear without spontaneous rupture of tympanic membrane, recurrence not specified H66.002 [place] [address] [address] Jan, [place] [address] [address] [place] [id number] [place] [address] Jan, Bronchitis J40 and BMI 40.0- 44.9, adult Z68.41 [place] [address] [address] Jan, [place] [address] [address] Dec, Gastric pain R10.9 [place] [address] [address] [place] [id number] [place] [address] Dec, [place] [address] [address] Dec, History of illicit drug use Z87.898 ; Neuropathy G62.9 ; COPD (chronic obstructive pulmonary disease) with chronic bronchitis J44.9 and Acute pain of right knee M25.561 [place] [address] [address] Nov, [place] [address] [address] Nov, Onychomycosis B35.1 and Cont usion of left foot, subsequent encounter S90.32XD [place] [address] [address] [place] [id number] [place] [address] Nov, COPD exacerbation J44.1 [place] [address] [address] Sep, [place] [address] [place] [id number] [place] [address] Sep, Dysthymic disorder F34.1 ; T obacco abuse Z72.0 ; Pain in right knee M25.561 ; Pain in left knee M25.562 ; Other chronic pain G89.29 and BMI 40.0- 44.9, adult Z68.41 [place] [address] [address] Aug, Major depressive disorder, r ecurrent episode, moderate F33.1 and Social phobia F40.[address] [address] 14 Aug, 2017 Dysthymic disorder F34.1 ; N on-pressure chronic ulcer of left thigh, unspecified ulcer stage L97.129 ; Tobacco abuse Z72.0 ; Mild chronic obstructive pulmonary disease J44.9 and Forgetfulness R68.[address] [address] 09 Aug, 2017 Onychomycosis B35.1 ; Fissur e in skin of foot R23.4 and Foot callus L84 [facility] [address] [address] Jul, Right medial knee pain M25.5 61 ; Upper respiratory tract infection, unspecified type J06.9 and BMI 40.0-44.9, adult Z68.41 [facility] [address] [address] 08 Jul, 2017 Nausea and vomiting, intract ability of vomiting not specified, unspecified vomiting type R11.2 ; Left ear pain H92.02 and Gastric pain R10.9 [place] [address] [address] Apr, Encounter for immunization Z [address] [address] Apr, Onychomycosis B35.1 ; Xerosi s of skin L85.3 ; Neuropathy G62.9 and 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 [id number] [address] [place] [address] Dec, [facility] [address] [id number] [address] [place] [address] Dec, [facility] [address] [facility] [id number] [address] [place] [address] Nov, [facility] [address] [facility] [id number] [address] [place] [address] Aug, [facility] [address] [facility] [id number] [address] [place] [address] Aug, [facility] [address] [facility] [id number] [address] [place] [address] Jul, [facility] [address] [facility] [id number] [address] [place] [address] Jul, [facility] [address] [facility] [id number] [address] [place] [address] Jul, Decubitus ulcer of left thig h, stage 2 L89.892 [facility] [address] [facility] [id number] [address] [place] [address] 17 Jul, 2016 Decubitus ulcer of left thig h, stage 2 L89.892 [facility] [address] [facility] [id number] [address] [place] [address] 17 Jul, 2016 [facility] [address] [facility] [id number] [address] [place] [address] 15 Jul, 2016 Decubitus ulcer of left thig h, stage 2 L89.892 [facility] [address] [facility] [id number] [address] [place] [address] 14 Jul, 2016 [facility] [address] [facility] [id number] [address] [place] [address] 13 Jul, 2016 Cellulitis of other specifie d site L03.818 ; Illicit drug use F19.90 and Decubitus ulcer of left thigh, stage 2 L89.892 [facility] [address] [facility] [id number] [address] [place] [address] Jul, [facility] [address] [facility] [id number] [address] [place] [address] Jul, Cellulitis of right breast N 61.0 [facility] [address] [facility] [id number] [address] [place] [address] Jun, [facility] [address] [facility] [id number] [address] [place] [address] Jun, [facility] [address] [place] [id number] [address] [place] [address] Jun, Wheezing R06.2 and Arthralgi a, unspecified joint M25.50 [facility] [address] [place] [id number] [place] [address] May, [facility] [address] [place] [id number] [address] [place] [address] May, [facility] [address] [place] [id number] [place] [address] May, [facility] [address] [place] [id number] [place] [address] May, Shortness of breath R06.02 [facility] [address] [facility] [id number] [address] [place] [phone] May, Onychomycosis B35.1 and Fiss ure in skin of foot R23.4 [facility] [address] [facility] [id number] [address] [place] [phone] Apr, [facility] [address] [facility] [id number] [address] [place] [phone] Apr, Dizziness R42 [facility] [address] [id number] [address] [place] [phone] 14 Apr, 2016 Shortness of breath R06.02 ; Essential hypertension I10 ; Dizziness R42 and On home oxygen therapy Z99.81 [facility] [address] [id number] [address] [place] [id number] Apr, [facility] [address] [id number] [address] [place] [id number] 08 Apr, 2016 [facility] [address] [id number] [address] [place] [phone] Apr, [facility] [address] [id number] [address] [place] [phone] Apr, [facility] [address] [id number] [address] [place] [phone] Apr, [facility] [address] [id number] [address] [place] [phone] Apr, [facility] [address] [id number] [address] [place] [phone] Apr, [facility] [address] [id number] [address] [place] [id number] Mar, Mild chronic obstructive pul monary disease J44.9 [facility] [address] [id number] [address] [place] [phone] Mar, [facility] [address] [id number] [address] [place] [phone] Mar, Epigastric pain R10.13 ; Low back pain M54.5 ; Other chronic pain G89.29 and Breast cancer screening Z12.39 [facility] [address] [id number] [address] [place] [address] Mar, [facility] [address] [id number] [address] [place] [address] Mar, [facility] [address] [id number] [address] [place] [address] Feb, [facility] [address] [facility] [id number] [address] [place] [id number] 08 Feb, 2016 [place] [address] [facility] [id number] [address] [place] [address] Feb, Fissure in skin of foot R23. 4 and Onychomycosis B35.1 [place] [address] [address] [place] [id number] [address] [place] [address] Jan, Agoraphobia F40.00 [place] [address] [facility] [id number] [address] [place] [address] Dec, Agoraphobia F40.00 [place] [address] [address] [place] [id number] [address] [place] [address] Dec, Mild persistent asthma witho ut complication J45.30 ; Dysthymic disorder F34.1 and Upper respiratory tract infection, unspecified type J06.9 [place] [id number] [place] [address] Nov, Agoraphobia F40.00 [place] [address] [address] [place] [id number] [address] [place] [address] October, Agoraphobia F40.00 [place] [address] [address] [place] [id number] [address] [place] [address] Sep, Panic disorder without agora phobia F41.0 ; Agoraphobia F40.00 and Dysthymic disorder F34.1 [place] [address] [address] [place] [id number] [address] [place] [address] Sep, Panic attacks F41.0 [place] [address] [facility] [id number] [address] [place] [address] Sep, [place] [address] [address] [place] [id number] [address] [place] [address] Sep, Panic disorder without agora phobia F41.0 ; Varicose veins of both lower extremities I83.93 and Fatigue R53.83 [place] [address] [address] [place] [id number] [address] [place] [address] 14 Sep, 2015 Fatigue R53.83 [place] [address] [address] 05 Sep, 2015 [place] [address] [address] [place] [id number] [address] [place] [address] Aug, [place] [address] [address] Aug, [place] [address] [address] Aug, Type 2 diabetes mellitus wit h diabetic neuropathic arthropathy E11.610 [place] [address] [address] Aug, Panic disorder without agora phobia F41.0 ; Agoraphobia F40.00 and Dysthymic disorder F34.1 [place] [address] [address] [place] [id number] [address] [place] [address] Aug, Shortness of breath R06.02 ; Panic attacks F41.0 ; COPD (chronic obstructive pulmonary disease) J44.9 ; Tobacco abuse Z72.0 ; Family history of diabetes mellitus Z83.3 and Weight gain R63.5 [place] [address] [address] [place] [id number] [address] [place] [address] Aug, [place] [address] [address] [place] [id number] [address] [place] [address] Jul, [place] [address] [address] [place] [id number] [address] [place] [address] Jun, Onychomycosis B35.1 ; Neurop athy G62.9 and Impaired circulation I99.9 [place] [address] [address] [place] [id number] [address] [place] [address] 09 Mar, 2015 Fissure in skin of foot R23. 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 [id number] [address] [place] [address] 18 Feb, 2015 Family history of coronary a rteriosclerosis V17.3 [facility] [address] [facility] [id number] [address] [place] [address] 15 Feb, 2015 Allergic rhinitis due to darien agnieszka 477.0 ; Unspecified breast screening V76.10 ; Anxiety 300.00 and Family history of coronary arteriosclerosis V17.3 [facility] [address] [facility] [id number] [address] [place] [address] Jan, [facility] [address] [facility] [id number] [address] [place] [address] Dec, [facility] [address] [place] [id number] [address] [place] [address] Dec, Onychomycosis 110.1 and Skin fissures 709.8 [facility] [address] [place] [id number] [address] [place] [address] Sep, [facility] [address] [facility] [id number] [address] [place] [address] Sep, [facility] [address] [place] [id number] [address] [place] [address] Aug, [facility] [address] [facility] [id number] [address] [place] [phone] Aug, [facility] [address] [facility] [id number] [address] [place] [address] Jul, [facility] [address] [facility] [id number] [address] [place] [address] Jul, [facility] [address] [facility] [id number] [address] [place] [address] Jun, [facility] [address] [facility] [id number] [address] [place] [address] Jun, [facility] [address] [facility] [id number] [address] [place] [address] Jun, [facility] [address] [id number] [address] [place] [address], [place] [address] Jun, [facility] [address] [id number] [address] [place] [address], [place] [address] Jun, [facility] [address] [id number] [address] [place] [address], [place] [address] May, [facility] [address] [id number] [address] [place] [address], [place] [address] May, [facility] [address] [id number] [address] [place] [address], [place] [address] May, [facility] [address] [id number] [address] [place] [address], [place] [address] May, [facility] [address] [id number] [address] [place] [address], [place] [address] May, [facility] [address] [id number] [address] [place] [address], [place] [address] May, [facility] [address] [id number] [address] [place] [address], [place] [address] May, [facility] [address] [id number] [address] [place] [address], [place] [address] May, [facility] [address] [id number] [address] [place] [address], [place] [address] Apr, [facility] [address] [id number] [address] [place] [address], [place] [address] Apr, [facility] [address] [id number] [address] [place] [address], [place] [address] Apr, [facility] [address] [id number] [address] [place] [address], [place] [address] Apr, [facility] [address] [id number] [address] [place] [address], [place] [address] Apr, [facility] [address] [id number] [address] [place] [address], [place] [address] Apr, [facility] [address] [id number] [address] [place] [address], [place] [address] Apr, [facility] [address] [id number] [address] [place] [address], [place] [address] Apr, [facility] [address] [id number] [address] [place] [address], [place] [address] Apr, [facility] [address] [id number] [address] [place] [address], [place] [address] Apr, [facility] [address] [id number] [address] [place] [address], [place] [address] Mar, [facility] [address] [id number] [address] [place] [address], [place] [address] Mar, [facility] [address] [id number] [address] [place] [address], [place] [address] Mar, [facility] [address] [id number] [address] [place] [address], [place] [address] Mar, [facility] [address] [id number] [address] [place] [address], [place] [address] Mar, [facility] [address] [id number] [address] [place] [address], [place] [address] Mar, [facility] [address] [id number] [address] [place] [address], [place] [address] Mar, [facility] [address] [id number] [address] [place] [address], [place] [address] Mar, [facility] [address] [id number] [address] [place] [address], [place] [address] Mar, [facility] [address] [id number] [address] [place] [address], [place] [address] Mar, [facility] [address] [id number] [address] [place] [address], [place] [address] Mar, [facility] [address] [id number] [address] [place] [address], [place] [address] Mar, 2013 [facility] [address] [id number] [address] [place] [address], [place] [address] 22 Mar, 2014 [facility] [address] [id number] [address] [place] [address], [place] [address] 22 Mar, 2014 [facility] [address] [id number] [address] [place] [address], [place] [address] 22 Mar, 2014 [facility] [address] [id number] [address] [place] [address], [place] [address] 20 Mar, 2014 [facility] [address] [id number] [address] [place] [address], [place] [address] 20 Mar, 2014 [facility] [address] [id number] [address] [place] [address], [place] [address] 16 Mar, 2014 [facility] [address] [id number] [address] [place] [address], [place] [address] 16 Mar, 2014 [facility] [address] [id number] [address] [place] [address], [place] [address] 15 Mar, 2014 [facility] [address] [id number] [address] [place] [address] 14 Mar, 2014 [facility] [address] [id number] [address] [place] [address] 14 Mar, 2014 [facility] [address] [id number] [address] [place] [address] 14 Mar, 2014 [facility] [address] [id number] [address] [place] [address], [place] [address] 14 Mar, 2014 [facility] [address] [id number] [address] [place] [address] 09 Mar, 2014 [facility] [address] [id number] [address] [place] [address] 09 Mar, 2014 [facility] [address] [id number] [address] [place] [address], [place] [address] 09 Mar, 2013 [facility] [address] [id number] [address] [place] [address], [place] [address] 09 Mar, 2013 [facility] [address] [id number] [address] [place] [address], [place] [address] 30 Feb, 2013 [facility] [address] [id number] [address] [place] [address], [place] [address] 30 Feb, 2013 [facility] [address] [id number] [address] [place] [address], [place] [address] 30 Feb, 2013 [facility] [address] [id number] [address] [place] [address], [place] [address] 30 Feb, 2013 [facility] [address] [id number] [address] [place] [address], [place] [address] Feb, 2013 [facility] [address] [id number] [address] [place] [address], [place] [address] Feb, 2013 [facility] [address] [id number] [address] [place] [address], [place] [address] Feb, 2013 [facility] [address] [id number] [address] [place] [address], [place] [address] Feb, 2013 [facility] [address] [id number] [address] [place] [address], [place] [address] Feb, 2013 [facility] [address] [id number] [address] [place] [address], [place] [address] Feb, 2013 [facility] [address] [id number] [address] [place] [address], [place] [address] Feb, 2013 [facility] [address] [id number] [address] [place] [address], [place] [address] Feb, 2013 [facility] [address] [id number] [address] [place] [address], [place] [address] Jan, [facility] [address] [id number] [address] [place] [address], [place] [address] Jan, [facility] [address] [id number] [facility] [place] [address] Jan, [facility] [address] [id number] [facility] [place] [address] Jan, [facility] [address] [id number] [facility] [place] [address] Jan, [facility] [address] [id number] [address] [place] [address], [place] [address] Jan, [facility] [address] [id number] [address] [place] [address], [place] [address] Jan, [facility] [address] [id number] [address] [place] [address], [place] [address] Jan, [facility] [address] [id number] [address] [place] [address], [place] [address] Jan, [facility] [address] [id number] [address] [place] [address], [place] [address] Jan, [facility] [address] [id number] [address] [place] [address], [place] [address] Jan, [facility] [address] [id number] [address] [place] [address], [place] [address] Jan, [facility] [address] [id number] [address] [place] [address], [place] [address] Jan, [facility] [address] [id number] [address] [place] [address], [place] [address] Dec, [facility] [address] [id number] [address] [place] [address], [place] [address] Dec, [facility] [address] [id number] [address] [place] [address], [place] [address] Dec, [facility] [address] [id number] [address] [place] [address], [place] [address] Dec, [facility] [address] [id number] [address] [place] [address], [place] [address] Dec, [facility] [address] [id number] [address] [place] [address], [place] [address] Dec, [facility] [address] [id number] [address] [place] [address], [place] [address] Dec, [facility] [address] [id number] [address] [place] [address], [place] [address] Dec, [facility] [address] [id number] [address] [place] [address], [place] [address] Dec, [facility] [address] [id number] [address] [place] [address], [place] [address] Dec, [facility] [address] [id number] [address] [place] [address], [place] [address] Dec, [facility] [address] [id number] [address] [place] [address], [place] [address] Dec, [facility] [address] [id number] [address] [place] [address], [place] [address] Dec, [facility] [address] [id number] [address] [place] [address], [place] [address] Dec, [facility] [address] [id number] [address] [place] [address], [place] [address] Dec, [facility] [address] [id number] [address] [place] [address], [place] [address] Dec, [facility] [address] [id number] [address] [place] [address], [place] [address] Dec, [facility] [address] [id number] [address] [place] [address], [place] [address] Dec, [facility] [address] [id number] [address] [place] [address], [place] [address] Nov, [facility] [address] [id number] [address] [place] [address], [place] [address] Nov, [facility] [address] [id number] [facility] [place] [address] 24 Nov, 2013 [facility] [address] [id number] [facility] [place] [address] Nov, [facility] [address] [id number] [facility] [place] [address] 16 Nov, 2013 [facility] [address] [id number] [address] [place] [address], [place] [address] Nov, [facility] [address] [id number] [address] [place] [address], [place] [address] Nov, [facility] [address] [id number] [address] [place] [address], [place] [address] Nov, [facility] [address] [id number] [address] [place] [address], [place] [address] Nov, [facility] [address] [id number] [address] [place] [address], [place] [address] Nov, [facility] [address] [id number] [address] [place] [address], [place] [address] Nov, [facility] [address] [id number] [address] [place] [address], [place] [address] Nov, [facility] [address] [id number] [address] [place] [address], [place] [address] Nov, [facility] [address] [id number] [address] [place] [address], [place] [address] Nov, [facility] [address] [id number] [address] [place] [address], [place] [address] Nov, [facility] [address] [id number] [address] [place] [address], [place] [address] Nov, [facility] [address] [id number] [address] [place] [address], [place] [address] Nov, [facility] [address] [id number] [address] [place] [address], [place] [address] Nov, [facility] [address] [id number] [address] [place] [address], [place] [address] Nov, [facility] [address] [id number] [address] [place] [address], [place] [address] Nov, [facility] [address] [id number] [address] [place] [address], [place] [address] October, [facility] [address] [id number] [address] [place] [address], [place] [address] October, [facility] [address] [id number] [address] [place] [address], [place] [address] October, [facility] [address] [id number] [address] [place] [address], [place] [address] October, [facility] [address] [id number] [address] [place] [address], [place] [address] Sep, [facility] [address] [id number] [address] [place] [address], [place] [address] Sep, [facility] [address] [id number] [address] [place] [address], [place] [address] Sep, [facility] [address] [id number] [address] [place] [address], [place] [address] Sep, [facility] [address] [id number] [address] [place] [address], [place] [address] Sep, [facility] [address] [id number] [address] [place] [address], [place] [address] Sep, [facility] [address] [id number] [address] [place] [address], [place] [address] Sep, [facility] [address] [id number] [address] [place] [address], [place] [address] Sep, [facility] [address] [id number] [address] [place] [address], [place] [address] Sep, [facility] [address] [id number] [address] [place] [address], [place] [address] Aug, [facility] [address] [id number] [address] [place] [address], [place] [address] Aug, [facility] [address] [id number] [address] [place] [address], [place] [address] Aug, [facility] [address] [id number] [address] [place] [address], [place] [address] Aug, [facility] [address] [id number] [address] [place] [address], [place] [address] Aug, [facility] [address] [id number] [address] [place] [address], [place] [address] Aug, [facility] [address] [id number] [address] [place] [address], [place] [address] Aug, [facility] [address] [id number] [address] [place] [address], [place] [address] Aug, [facility] [address] [id number] [address] [place] [address], [place] [address] Jul, [facility] [address] [id number] [address] [place] [address], [place] [address] Jul, [facility] [address] [id number] [address] [place] [address], [place] [address] Jun, [facility] [address] [id number] [address] [place] [address], [place] [address] Jun, [facility] [address] [id number] [address] [place] [address], [place] [address] Jun, [facility] [address] [id number] [address] [place] [address], [place] [address] Jun, [facility] [address] [id number] [address] [place] [address], [place] [address] Jun, [facility] [address] [id number] [address] [place] [address], [place] [address] Jun, [facility] [address] [id number] [address] [place] [address], [place] [address] Jun, [facility] [address] [id number] [address] [place] [address], [place] [address] Jun, [facility] [address] [id number] [address] [place] [address], [place] [address] Jun, [facility] [address] [id number] [address] [place] [address], [place] [address] Jun, [facility] [address] [id number] [address] [place] [address], [place] [address] Jun, [facility] [address] [id number] [address] [place] [address], [place] [address] Jun, [facility] [address] [id number] [address] [place] [address], [place] [address] May, [facility] [address] [id number] [address] [place] [address], [place] [address] May, [facility] [address] [id number] [address] [place] [address], [place] [address] May, [facility] [address] [id number] [address] [place] [address], [place] [address] May, [facility] [address] [id number] [address] [place] [address], [place] [address] May, [facility] [address] [id number] [address] [place] [address], [place] [address] May, [facility] [address] [id number] [address] [place] [address], [place] [address] May, [facility] [address] [id number] [address] [place] [address], [place] [address] May, [facility] [address] [id number] [address] [place] [address], [place] [address] May, [facility] [address] [id number] [address] [place] [address], [place] [address] May, [facility] [address] [id number] [address] [place] [address], [place] [address] May, [facility] [address] [id number] [address] [place] [address], [place] [address] May, [facility] [address] [id number] [address] [place] [address], [place] [address] May, [facility] [address] [id number] [address] [place] [address], [place] [address] Apr, [facility] [address] [id number] [address] [place] [address], [place] [address] Apr, [facility] [address] [id number] [address] [place] [address], [place] [address] Mar, [facility] [address] [id number] [address] [place] [address], [place] [address] Mar, [facility] [address] [id number] [address] [place] [address], [place] [address] 24 Feb, 2013 [facility] [address] [id number] [address] [place] [address], [place] [address] Feb, [facility] [facility] [address] [id number] [address] [place] [address], [place] [address] Feb, [facility] [address] [id number] [address] [place] [address] Feb, [facility] [address] [id number] [address] [place] [address] Jan, [facility] [address] [id number] [address] [place] [address], [place] [address] Jan, [facility] [address] [id number] [address] [place] [address], [place] [address] Jan, [facility] [address] [id number] [address] [place] [address], [place] [address] Jan, [facility] [address] [id number] [address] [place] [address], [place] [address] Jan, [facility] [address] [id number] [address] [place] [address], [place] [address] Jan, [facility] [address] [id number] [address] [place] [address], [place] [address] Dec, [facility] [address] [id number] [address] [place] [address], [place] [address] Dec, [facility] [address] [id number] [address] [place] [address], [place] [address] Dec, [facility] [address] [id number] [address] [place] [address], [place] [address] Dec, [facility] [address] [id number] [address] [place] [address], [place] [address] Nov, [facility] [address] [id number] [address] [place] [address], [place] [address] October, [facility] [address] [id number] [address] [place] [address], [place] [address] October, [facility] [address] [id number] [address] [place] [address], [place] [address] October, [facility] [address] [id number] [address] [place] [address], [place] [address] Sep, [facility] [address] [id number] [address] [place] [address], [place] [address] Sep, [facility] [address] [id number] [address] [place] [address], [place] [address] Jun, [facility] [address] [id number] [address] [place] [address], [place] [address] Jun, [facility] [address] [id number] [address] [place] [address], [place] [address] Jun, [facility] [address] [id number] [address] [place] [address], [place] [address] Apr, [facility] [address] [id number] [address] [place] [address], [place] [address] Apr, [facility] [address] [id number] [address] [place] [address], [place] [address] Apr, [facility] [address] [id number] [address] [place] [address], [place] [address] Apr, [facility] [address] [id number] [address] [place] [address], [place] [address] Mar, [facility] [address] [id number] [address] [place] [address], [place] [address] Mar, [facility] [address] [id number] [address] [place] [address], [place] [address] Mar, [facility] [address] [id number] [address] [place] [address], [place] [address] Mar, [facility] [address] [id number] [address] [place] [address], [place] [address] Feb, [facility] [address] [id number] [address] [place] [address], [place] [address] Feb, [facility] [address] [id number] [address] [place] [address], [place] [address] Feb, [facility] [address] [id number] [address] [place] [address], [place] [address] Jan, [facility] [address] [id number] [address] [place] [address], [place] [address] Jan, [facility] [address] [id number] [address] [place] [address], [place] [address] Jan, [facility] [address] [id number] [address] [place] [address], [place] [address] Jan, [facility] [address] [id number] [address] [place] [address], [place] [address] Dec, [facility] [address] [id number] [address] [place] [address], [place] [address] Dec, [facility] [address] [id number] [address] [place] [address], [place] [address] Nov, [facility] [address] [id number] [address] [place] [address], [place] [address] Nov, [facility] [address] [id number] [address] [place] [address], [place] [address] October, [facility] [address] [id number] [address] [place] [address], [place] [address] October, [facility] [address] [id number] [address] [place] [address], [place] [address] October, [facility] [address] [id number] [address] [place] [address], [place] [address] Sep, [facility] [address] [id number] [address] [place] [address], [place] [address] Sep, [facility] [address] [id number] [address] [place] [address], [place] [address] Sep, [facility] [address] [id number] [address] [place] [address], [place] [address] Aug, [facility] [address] [id number] [address] [place] [address], [place] [address] Aug, [facility] [address] [id number] [address] [place] [address], [place] [address] Aug, [facility] [address] [id number] [address] [place] [address], [place] [address] Aug, [facility] [address] [id number] [address] [place] [address], [place] [address] Aug, [facility] [address] [id number] [address] [place] [address], [place] [address] Jul, [facility] [address] [id number] [address] [place] [address], [place] [address] 16 Jul, 2011 [facility] [address] [id number] [address] [place] [address], [place] [address] 13 Jul, 2011 [facility] [address] [id number] [address] [place] [address], [place] [address] 09 Jul, 2011 [facility] [address] [id number] [address] [place] [address], [place] [address] 07 Jul, 2011 [facility] [address] [id number] [address] [place] [address], [place] [address] Jul, 2011 [facility] [address] [id number] [address] [place] [address], [place] [address] Jul, [facility] [address] [id number] [address] [place] [address], [place] [address] Jul, [facility] [address] [id number] [address] [place] [address], [place] [address] Jun, [facility] [address] [id number] [address] [place] [address], [place] [address] Jun, [facility] [address] [id number] [address] [place] [address], [place] [address] May, [facility] [address] [id number] [address] [place] [address], [place] [address] May, [facility] [address] [id number] [address] [place] [address], [place] [address] May, [facility] [address] [id number] [address] [place] [address], [place] [address] May, [facility] [address] [id number] [address] [place] [address], [place] [address] Apr, [facility] [address] [id number] [address] [place] [address], [place] [address] Apr, [facility] [address] [id number] [address] [place] [address], [place] [address] Apr, [facility] [address] [id number] [address] [place] [address], [place] [address] 18 Mar, 2011 [facility] [address] [id number] [address] [place] [address], [place] [address] 18 Mar, 2011 [facility] [address] [id number] [address] [place] [address], [place] [address] 18 Mar, 2011 [facility] [address] [id number] [address] [place] [address], [place] [address] 2011 [facility] [address] [id number] [address] [place] [address], [place] [address] Dec, [facility] [address] [id number] [address] [place] [address], [place] [address] October, [facility] [address] [id number] [address] [place] [address], [place] [address] 28 May, 2010 [facility] [address] [id number] [address] [place] [address], [place] [address] 13 May, 2010 [facility] [address] [id number] [address] [place] [address], [place] [address] 13 May, 2010 [facility] [address] [id number] [address] [place] [address], [place] [address] 06 May, 2010 [facility] [address] [id number] [address] [place] [address], [place] [address] Mar, [facility] [address] [id number] [address] [place] [address], [place] [address] Mar, [facility] [address] [id number] [address] [place] [address], [place] [address] 31 May, 2009 [facility] [address] [id number] [address] [place] [address], [place] [address] 30 May, 2009 [facility] [address] [id number] [address] [place] [address], [place] [address] 08 May, 2009 [facility] [address] [id number] [address] [place] [address], [place] [address] 08 May, 2009 [facility] [address] [id number] [address] [place] [address] Apr, [facility] [address] [facility] [id number] [address] [place] [address] Apr, [facility] [address] [facility] [id number] [address] [place] [address] October, IMMUNIZATIONS No Known Immunizations SOCIAL HISTORY [...]
--- OUTSIDE RECORDS SUMMARY | 2020-01-13 11:44 | XMS REPORT ---
Author Author Monique RAHMAN [facility] Address [address] [place] [address] Care Team Providers Care Rehab Therapist Name Role Phone RASHEED RAHMAN Unavailable PROBLEMS Type Condition ICD9-CM Code MMO78-VB Code Onset Dates Condition S tatus SNOMED Code Problem History of illicit drug use Z87.898 Ac tive 378008520 Problem Snoring R06.83 Active 60667456 Problem Impaired circulation I99.9 Active 14267107 Problem MRSA (methicillin resistant staph aureus) culture positive Z22.322 Active 846770610 Problem Panic disorder without agoraphobia F41.0 Active 40194717 Problem Dysthymic disorder F34.1 Active 7 7895037 Problem Mood disorder F39 Active 147877 05 Problem Arthritis M19.90 Active 9612976 Problem Mild chronic obstructive pulmonary disease J44.9 Active 017552184 Problem Mild persistent asthma without complication J45.30 Active 705091649 Problem Essential hypertension I10 Active 23767835 Problem On home oxygen therapy Z99.81 Active 052164012401 Problem Social phobia F40.10 Active 955107 02 Problem Neuropathy G62.9 Active 452599189 Problem 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 Active 426175552 Problem Major depressive disorder, recurrent episode, moderate F33.1 Active 646905619 Problem Psychotic disorder F29 Active 6 2068112 Problem Hypertension, benign I10 Active 97136718 Problem Onychomycosis B35.1 Active 037326 008 Problem Body mass index (BMI) 40.0-44.9, adult Z68.41 Active 434653887 Problem Varicose veins of both lower extremities I83.93 Active 08637225 Problem Sciatica, left side M54.32 Active 01759322 Problem Agoraphobia F40.00 Active 82162804 Problem Fatigue R53.83 Active 12289322 Problem Major depressive disorder in full remission F32.5 Active 58065752 Problem Slow transit constipation K59.01 Acti ve 31319433 Problem Chronic obstructive pulmonary disease, unspecified COPD ty pe J44.9 Active 75320833 Problem Unspecified psychosis not du e to a substance or known physiological condition F29 Active 561683708 ALLERGIES No Information ENCOUNTERS Encounter Location Date Diagnosis [place] [address] [address] Nov, [place] [address] [address] Sep, Abdominal pain, right upper quadrant R10.11 [place] [address] [address] Sep, Major depressive disorder, r ecurrent episode, moderate F33.1 ; Panic disorder without agoraphobia F41.0 and Morbid obesity E66.01 [place] [address] [address] Aug, Bronchitis J40 [place] [address] [address] Aug, Sciatica, left side M54.32 a nd Morbid obesity E66.01 [place] [address] [address] Aug, [place] [address] [address] Aug, Sciatica, left side M54.32 [place] [address] [address] Aug, Neuropathy G62.9 ; Onychomyc osis B35.1 ; Callus of foot L84 and Skin fissures R23.4 [place] [address] [place] [id number] [address] [place] [address] Jul, [place] [address] [address] Jul, Morbid obesity E66.01 [place] [address] [address] [place] [id number] [place] [address] Jul, Unspecified psychosis not du e to a substance or known physiological condition F29 ; Chronic obstructive pulmonary disease, unspecified COPD type J44.9 and Body mass index (BMI) 40.0-44.9, adult Z68.41 [place] [address] [address] Jun, [place] [address] [address] Jun, Morbid obesity E66.01 [place] [address] [address] May, Morbid obesity E66.01 [place] [address] [address] May, Encounter for immunization Z 23 [place] [address] [address] May, Major depressive disorder, r ecurrent episode, moderate F33.1 ; Panic disorder without agoraphobia F41.0 and Morbid obesity E66.01 [place] [address] [address] May, Major depressive disorder in full remission F32.5 and Panic disorder without agoraphobia F41.0 [place] [address] [place] [id number] [place] [address] Apr, Morbid obesity E66.01 [place] [address] [address] Apr, Slow transit constipation K5 9.01 and Cellulitis of left lower extremity L03.116 [place] [address] [address] [place] [id number] [place] [address] Apr, Morbid obesity E66.01 [place] [address] [address] Apr, [place] [address] [address] Apr, Major depressive disorder, r ecurrent episode, moderate F33.1 and Panic disorder without agoraphobia F41.0 [place] [address] [address] Mar, Viral upper respiratory trac t infection J06.9 [place] [address] [address] Mar, Bronchitis J40 and Encounter for immunization Z23 [address] [address] Mar, Morbid obesity E66.01 [place] [address] [address] Feb, Major depressive disorder, r ecurrent episode, moderate F33.1 and Panic disorder without agoraphobia F41.0 [place] [address] [address] Feb, Morbid obesity E66.01 [place] [address] [address] Feb, Onychomycosis B35.1 ; 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 and Xerosis of skin L85.3 [place] [address] [address] Feb, Major depressive disorder, r ecurrent episode, moderate F33.1 ; Panic disorder without agoraphobia F41.0 and Morbid obesity E66.01 [place] [address] [address] Jan, Major depressive disorder in full remission F32.5 and Panic disorder without agoraphobia F41.0 [place] [address] [address] Jan, Pneumonia of both lower lobe s due to infectious organism J18.1 and Morbid obesity E66.01 [facility] [address] [facility] [id number] [address] [place] [address] Jan, [place] [address] [facility] [id number] [address] [place] [address] Jan, Major depressive disorder in full remission F32.5 and Panic disorder without agoraphobia F41.0 [place] [address] [facility] [id number] [address] [place] [address] Jan, [place] [address] [facility] [id number] [address] [place] [address] Jan, Major depressive disorder, r ecurrent episode, moderate F33.1 ; Panic disorder without agoraphobia F41.0 and Morbid obesity E66.01 [place] [address] [place] [id number] [address] [place] [address] Dec, Bilious vomiting with nausea R11.14 ; Coughing R05 and Choking, subsequent encounter T17.308D [place] [address] [place] [id number] [address] [place] [address] Dec, Morbid obesity E66.01 [place] [address] [facility] [id number] [address] [place] [address] Dec, Major depressive disorder, r ecurrent episode, moderate F33.1 and Panic disorder without agoraphobia F41.0 [place] [address] [facility] [id number] [address] [place] [address] Dec, [place] [address] [facility] [id number] [address] [place] [address] Dec, Major depressive disorder, r ecurrent episode, moderate F33.1 [place] [address] [facility] [id number] [address] [place] [address] Nov, Major depressive disorder, r ecurrent episode, moderate F33.1 ; Panic disorder without agoraphobia F41.0 and Morbid obesity E66.01 [place] [address] [address] 20 Nov, 2018 Morbid obesity E66.01 [place] [address] [address] Nov, Major depressive disorder, r ecurrent episode, moderate F33.1 and Panic disorder without agoraphobia F41.0 [facility] [place] [address] [address] Nov, Allergic reaction, initial e ncounter T78.40XA and Morbid obesity E66.01 [place] [address] [address] Nov, [place] [address] [address] Nov, Morbid obesity E66.01 ; Swal lowing problem R13.10 and Hypertension, benign I10 [facility] [place] [address] [address] 07 Nov, 2018 Morbid obesity E66.01 ; COPD exacerbation J44.1 and Non- recurrent acute suppurative otitis media of left ear without spontaneous rupture of tympanic membrane H66.002 [place] [address] [address] 07 Nov, 2018 Onychomycosis B35.1 ; Neurop athy G62.9 and Fissure in skin of foot R23.4 [place] [address] [address] October, Major depressive disorder, r ecurrent episode, moderate F33.1 ; Panic disorder without agoraphobia F41.0 and Morbid obesity E66.01 [facility] [place] [address] [address] October, Viral upper respiratory trac t infection J06.9 [place] [address] [address] October, [facility] [address] [facility] [id number] [address] [place] [address] October, Major depressive disorder, r ecurrent episode, moderate F33.1 and Panic disorder without agoraphobia F41.0 [facility] [address] [id number] [address] [place] [address] October, [facility] [address] [facility] [id number] [address] [place] [address] October, [facility] [address] [id number] [address] [place] [address] October, [facility] [address] [facility] [id number] [address] [place] [address] October, [facility] [address] [facility] [id number] [address] [place] [address] October, [facility] [address] [facility] [id number] [address] [place] [address] October, [facility] [address] [facility] [id number] [address] [place] [address] October, Major depressive disorder, r ecurrent episode, moderate F33.1 and Panic disorder without agoraphobia F41.0 [facility] [address] [facility] [id number] [address] [place] [address] Sep, Morbid obesity E66.01 and Vane mbar neuritis M54.16 [facility] [address] [facility] [id number] [address] [place] [address] Sep, Panic disorder without agora phobia F41.0 and Major depressive disorder, recurrent episode, moderate F33.1 [facility] [address] [facility] [id number] [address] [place] [address] Sep, Gastroenteritis K52.9 ; Low back pain M54.5 ; Other chronic pain G89.29 and Morbid obesity E66.01 [facility] [address] [facility] [id number] [address] [place] [address] Sep, Major depressive disorder, r ecurrent episode, moderate F33.1 ; Panic disorder without agoraphobia F41.0 and Social phobia F40.10 [place] [address] [place] [address] Sep, Panic disorder without agora phobia F41.0 [place] [address] [address] [place] [id number] [address] [place] [address] Sep, Panic disorder without agora phobia F41.0 [place] [address] [address] Aug, Panic disorder without agora phobia F41.0 ; Major depressive disorder, recurrent episode, moderate F33.1 ; Social phobia F40.10 ; Psychotic disorder F29 ; Tardive dyskinesia G24.01 and Morbid obesity E66.01 [place] [address] [address] Aug, Dysthymic disorder F34.1 and Psychotic disorder F29 [place] [address] [address] Aug, [facility] ; Morbid obesity E66.01 and 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 [place] [address] [address] [place] [id number] [place] [address] Aug, Dysthymic disorder F34.1 and Psychotic disorder F29 [place] [address] [address] Aug, Neuropathy G62.9 ; Onychomyc osis B35.1 and Xerosis of skin L85.3 [place] [address] [address] [place] [id number] [address] [place] [address] Jul, [place] [address] [place] [id number] [address] [place] [address] Jul, Mood disorder F39 ; Wheezing R06.2 ; Choking, initial encounter T17.308A and Coughing R05 [facility] [address] [address] Jul, Low back pain M54.5 [facility] [address] [place] [id number] [address] [place] [address] Jun, Flu-like symptoms R68.89 ; B SC 45.0-49.9, adult Z68.42 ; COPD exacerbation J44.1 and Acute bronchitis J20.9 [place] [address] [address] Jun, [place] [address] [address] May, [place] [address] [address] May, Onychomycosis B35.1 and 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.610 [place] [address] [address] May, Low back pain M54.5 and Abdoulaye a leg R60.0 [place] [address] [address] May, BMI 45.0-49.9, adult Z68.42 ; Well woman exam with routine gynecological exam Z01.419 and Breast cancer screening Z12.31 [place] [address] [address] Apr, Arthritis M19.90 [place] [address] [address] Apr, Arthritis M19.90 and Otalgia of both ears H92.03 [place] [address] [address] [place] [id number] [address] [place] [address] Feb, [place] [address] [address] Feb, Low back pain M54.5 ; Other chronic pain G89.29 ; Exertional asthma J45.990 and Encounter for immunization Z23 [facility] [address] [place] [address] Feb, Skin fissures R23.4 ; Neurop athy G62.9 and Onychomycosis B35.1 [facility] [address] [place] [id number] [address] [place] [address] 05 Feb, 2018 Dysthymic disorder F34.1 [place] [address] [place] [address] 04 Feb, 2018 [place] [address] [address] Jan, [place] [address] [address] Jan, Abrasion of right elbow, ini tial encounter S50.311A ; Abrasion, right knee, initial encounter S80.211A and Sprain of other ligament of right ankle, initial encounter S93.491A [place] [address] [address] Jan, [facility] [address] [place] [id number] [address] [place] [address] Jan, Injury of left ankle, initia l encounter S99.912A ; Fall down stairs, initial encounter W10.8XXA and BMI 45.0-49.9, adult Z68.42 [place] [address] [place] [address] Jan, COPD exacerbation J44.1 [place] [address] [place] [id number] [address] [place] [address] Jan, 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 [place] [address] [place] [id number] [address] [place] [address] 08 Jan, 2018 Bronchitis J40 and Acute sup purative otitis media of left ear without spontaneous rupture of tympanic membrane, recurrence not specified H66.002 [place] [address] [address] Jan, [place] [address] [place] [id number] [place] [address] Jan, Bronchitis J40 and BMI 40.0- 44.9, adult Z68.41 [place] [address] [address] Jan, [place] [address] [address] Dec, Gastric pain R10.9 [place] [address] [place] [id number] [place] [address] Dec, [place] [address] [address] Dec, History of illicit drug use Z87.898 ; Neuropathy G62.9 ; COPD (chronic obstructive pulmonary disease) with chronic bronchitis J44.9 and Acute pain of right knee M25.561 [place] [address] [address] Nov, [place] [address] [address] Nov, Onychomycosis B35.1 and Cont usion of left foot, subsequent encounter S90.32XD [place] [address] [place] [id number] [address] [place] [address] Nov, COPD exacerbation J44.1 [place] [address] [address] Sep, [place] [address] [place] [id number] [place] [address] Sep, Dysthymic disorder F34.1 ; T obacco abuse Z72.0 ; Pain in right knee M25.561 ; Pain in left knee M25.562 ; Other chronic pain G89.29 and BMI 40.0- 44.9, adult Z68.41 [place] [address] [address] Aug, Major depressive disorder, r ecurrent episode, moderate F33.1 and Social phobia F40.[address] [address] 14 Aug, 2017 Dysthymic disorder F34.1 ; N on-pressure chronic ulcer of left thigh, unspecified ulcer stage L97.129 ; Tobacco abuse Z72.0 ; Mild chronic obstructive pulmonary disease J44.9 and Forgetfulness R68.[address] [address] 09 Aug, 2017 Onychomycosis B35.1 ; Fissur e in skin of foot R23.4 and Foot callus L84 [facility] [address] [address] Jul, Right medial knee pain M25.5 61 ; Upper respiratory tract infection, unspecified type J06.9 and BMI 40.0-44.9, adult Z68.41 [facility] [address] [address] 08 Jul, 2017 Nausea and vomiting, intract ability of vomiting not specified, unspecified vomiting type R11.2 ; Left ear pain H92.02 and Gastric pain R10.9 [place] [address] [address] Apr, Encounter for immunization Z [address] [address] Apr, Onychomycosis B35.1 ; Xerosi s of skin L85.3 ; Neuropathy G62.9 and 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 [place] [address] [address] Jan, Onychomycosis B35.1 and Neur opathy G62.9 [facility] [address] [facility] [id number] [address] [place] [address] Dec, [facility] [address] [id number] [address] [place] [address] Dec, [facility] [address] [facility] [id number] [address] [place] [address] Nov, [facility] [address] [facility] [id number] [address] [place] [address] Aug, [facility] [address] [facility] [id number] [address] [place] [address] Aug, [facility] [address] [facility] [id number] [address] [place] [address] Jul, [facility] [address] [facility] [id number] [address] [place] [address] Jul, [facility] [address] [facility] [id number] [address] [place] [address] Jul, Decubitus ulcer of left thig h, stage 2 L89.892 [facility] [address] [facility] [id number] [address] [place] [address] 17 Jul, 2016 Decubitus ulcer of left thig h, stage 2 L89.892 [facility] [address] [facility] [id number] [address] [place] [address] 17 Jul, 2016 [facility] [address] [facility] [id number] [address] [place] [address] 15 Jul, 2016 Decubitus ulcer of left thig h, stage 2 L89.892 [facility] [address] [facility] [id number] [address] [place] [address] 14 Jul, 2016 [facility] [address] [facility] [id number] [address] [place] [address] 13 Jul, 2016 Cellulitis of other specifie d site L03.818 ; Illicit drug use F19.90 and Decubitus ulcer of left thigh, stage 2 L89.892 [facility] [address] [facility] [id number] [address] [place] [address] Jul, [facility] [address] [facility] [id number] [address] [place] [address] Jul, Cellulitis of right breast N 61.0 [facility] [address] [facility] [id number] [address] [place] [address] Jun, [facility] [address] [facility] [id number] [address] [place] [address] Jun, [facility] [address] [place] [id number] [address] [place] [address] Jun, Wheezing R06.2 and Arthralgi a, unspecified joint M25.50 [facility] [address] [place] [id number] [address] [place] [address] May, [facility] [address] [place] [id number] [address] [place] [address] May, [facility] [address] [place] [id number] [address] [place] [address] May, [facility] [address] [place] [id number] [address] [place] [address] May, Shortness of breath R06.02 [facility] [address] [facility] [id number] [address] [place] [address] May, Onychomycosis B35.1 and Fiss ure in skin of foot R23.4 [facility] [address] [facility] [id number] [address] [place] [address] Apr, [facility] [address] [facility] [id number] [address] [place] [address] Apr, Dizziness R42 [facility] [address] [place] [id number] [address] [place] [address] 14 Apr, 2016 Shortness of breath R06.02 ; Essential hypertension I10 ; Dizziness R42 and On home oxygen therapy Z99.81 [facility] [address] [id number] [address] [place] [address] Apr, [facility] [address] [id number] [address] [place] [address] 08 Apr, 2016 [facility] [address] [id number] [address] [place] [address] Apr, [facility] [address] [id number] [address] [place] [address] Apr, [facility] [address] [id number] [address] [place] [address] Apr, [facility] [address] [id number] [address] [place] [address] Apr, [facility] [address] [id number] [address] [place] [address] Apr, [facility] [address] [id number] [address] [place] [address] Mar, Mild chronic obstructive pul monary disease J44.9 [facility] [address] [id number] [address] [place] [id number] Mar, [facility] [address] [id number] [address] [place] [id number] Mar, Epigastric pain R10.13 ; Low back pain M54.5 ; Other chronic pain G89.29 and Breast cancer screening Z12.39 [facility] [address] [id number] [address] [place] [id number] Mar, [facility] [address] [id number] [address] [place] [id number] Mar, [facility] [address] [id number] [address] [place] [id number] Feb, [facility] [address] [facility] [id number] [address] [place] [id number] 08 Feb, 2016 [place] [address] [address] [facility] [id number] [address] [place] [phone] Feb, Fissure in skin of foot R23. 4 and Onychomycosis B35.1 [place] [address] [address] [place] [id number] [address] [place] [id number] Jan, Agoraphobia F40.00 [place] [address] [address] [facility] [id number] [address] [place] [id number] Dec, Agoraphobia F40.00 [place] [address] [address] [place] [id number] [address] [place] [id number] Dec, Mild persistent asthma witho ut complication J45.30 ; Dysthymic disorder F34.1 and Upper respiratory tract infection, unspecified type J06.9 [place] [address] [address] [id number] [place] [address] Nov, Agoraphobia F40.00 [place] [address] [place] [id number] [address] [place] [address] October, Agoraphobia F40.00 [place] [address] [place] [id number] [address] [place] [address] Sep, Panic disorder without agora phobia F41.0 ; Agoraphobia F40.00 and Dysthymic disorder F34.1 [place] [address] [place] [id number] [address] [place] [address] Sep, Panic attacks F41.0 [place] [address] [facility] [id number] [address] [place] [address] Sep, [place] [address] [place] [id number] [address] [place] [address] Sep, Panic disorder without agora phobia F41.0 ; Varicose veins of both lower extremities I83.93 and Fatigue R53.83 [place] [address] [place] [id number] [address] [place] [address] 14 Sep, 2015 Fatigue R53.83 [place] [address] [address] 05 Sep, 2015 [place] [address] [place] [id number] [address] [place] [address] Aug, [place] [address] [address] Aug, [place] [address] [address] Aug, Type 2 diabetes mellitus wit h diabetic neuropathic arthropathy E11.610 [place] [address] [address] Aug, Panic disorder without agora phobia F41.0 ; Agoraphobia F40.00 and Dysthymic disorder F34.1 [place] [address] [place] [id number] [address] [place] [address] Aug, Shortness of breath R06.02 ; Panic attacks F41.0 ; COPD (chronic obstructive pulmonary disease) J44.9 ; Tobacco abuse Z72.0 ; Family history of diabetes mellitus Z83.3 and Weight gain R63.5 [place] [address] [place] [id number] [address] [place] [address] Aug, [place] [address] [place] [id number] [address] [place] [address] Jul, [place] [address] [place] [id number] [address] [place] [address] Jun, Onychomycosis B35.1 ; Neurop athy G62.9 and Impaired circulation I99.9 [place] [address] [place] [id number] [address] [place] [address] 09 Mar, 2015 Fissure in skin of foot R23. 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 [facility] [address] [facility] [id number] [address] [place] [address] 18 Feb, 2015 Family history of coronary a rteriosclerosis V17.3 [facility] [address] [facility] [id number] [address] [place] [address] 15 Feb, 2015 Allergic rhinitis due to darien agnieszka 477.0 ; Unspecified breast screening V76.10 ; Anxiety 300.00 and Family history of coronary arteriosclerosis V17.3 [facility] [address] [facility] [id number] [address] [place] [address] Jan, [facility] [address] [facility] [id number] [address] [place] [address] Dec, [facility] [address] [place] [id number] [address] [place] [address] Dec, Onychomycosis 110.1 and Skin fissures 709.8 [facility] [address] [place] [id number] [address] [place] [address] Sep, [facility] [address] [facility] [id number] [address] [place] [address] Sep, [facility] [address] [place] [id number] [address] [place] [address] Aug, [facility] [address] [facility] [id number] [address] [place] [address] Aug, [facility] [address] [facility] [id number] [address] [place] [address] Jul, [facility] [address] [facility] [id number] [address] [place] [address] Jul, [facility] [address] [facility] [id number] [address] [place] [address] Jun, [facility] [address] [facility] [id number] [address] [place] [address] Jun, [facility] [address] [facility] [id number] [address] [place] [address] Jun, [facility] [address] [id number] [address] [place] [address], [place] [address] Jun, [facility] [address] [id number] [address] [place] [address], [place] [address] Jun, [facility] [address] [id number] [address] [place] [address], [place] [address] May, [facility] [address] [id number] [address] [place] [address], [place] [address] May, [facility] [address] [id number] [address] [place] [address], [place] [address] May, [facility] [address] [id number] [address] [place] [address], [place] [address] May, [facility] [address] [id number] [address] [place] [address], [place] [address] May, [facility] [address] [id number] [address] [place] [address], [place] [address] May, [facility] [address] [id number] [address] [place] [address], [place] [address] May, [facility] [address] [id number] [address] [place] [address], [place] [address] May, [facility] [address] [id number] [address] [place] [address], [place] [address] Apr, [facility] [address] [id number] [address] [place] [address], [place] [address] Apr, [facility] [address] [id number] [address] [place] [address], [place] [address] Apr, [facility] [address] [id number] [address] [place] [address], [place] [address] Apr, [facility] [address] [id number] [address] [place] [address], [place] [address] Apr, [facility] [address] [id number] [address] [place] [address], [place] [address] Apr, [facility] [address] [id number] [address] [place] [address], [place] [address] Apr, [facility] [address] [id number] [address] [place] [address], [place] [address] Apr, [facility] [address] [id number] [address] [place] [address], [place] [address] Apr, [facility] [address] [id number] [address] [place] [address], [place] [address] Apr, [facility] [address] [id number] [address] [place] [address], [place] [address] Mar, [facility] [address] [id number] [address] [place] [address], [place] [address] Mar, [facility] [address] [id number] [address] [place] [address], [place] [address] Mar, [facility] [address] [id number] [address] [place] [address], [place] [address] Mar, [facility] [address] [id number] [address] [place] [address], [place] [address] Mar, [facility] [address] [id number] [address] [place] [address], [place] [address] Mar, [facility] [address] [id number] [address] [place] [address], [place] [address] Mar, [facility] [address] [id number] [address] [place] [address], [place] [address] Mar, [facility] [address] [id number] [address] [place] [address], [place] [address] Mar, [facility] [address] [id number] [address] [place] [address], [place] [address] Mar, [facility] [address] [id number] [address] [place] [address], [place] [address] Mar, [facility] [address] [id number] [address] [place] [address], [place] [address] Mar, 2013 [facility] [address] [id number] [address] [place] [address], [place] [address] 22 Mar, 2014 [facility] [address] [id number] [address] [place] [address], [place] [address] 22 Mar, 2014 [facility] [address] [id number] [address] [place] [address], [place] [address] 22 Mar, 2014 [facility] [address] [id number] [address] [place] [address], [place] [address] 20 Mar, 2014 [facility] [address] [id number] [address] [place] [address], [place] [address] 20 Mar, 2014 [facility] [address] [id number] [address] [place] [address], [place] [address] 16 Mar, 2014 [facility] [address] [id number] [address] [place] [address], [place] [address] 16 Mar, 2014 [facility] [address] [id number] [address] [place] [address], [place] [address] 15 Mar, 2014 [facility] [address] [id number] [address] [place] [address] 14 Mar, 2014 [facility] [address] [id number] [address] [place] [address] 14 Mar, 2014 [facility] [address] [id number] [address] [place] [address] 14 Mar, 2014 [facility] [address] [id number] [address] [place] [address], [place] [address] 14 Mar, 2014 [facility] [address] [id number] [address] [place] [address] 09 Mar, 2014 [facility] [address] [id number] [address] [place] [address] 09 Mar, 2014 [facility] [address] [id number] [address] [place] [address], [place] [address] 09 Mar, 2013 [facility] [address] [id number] [address] [place] [address], [place] [address] 09 Mar, 2013 [facility] [address] [id number] [address] [place] [address], [place] [address] 30 Feb, 2013 [facility] [address] [id number] [address] [place] [address], [place] [address] 30 Feb, 2013 [facility] [address] [id number] [address] [place] [address], [place] [address] 30 Feb, 2013 [facility] [address] [id number] [address] [place] [address], [place] [address] 30 Feb, 2013 [facility] [address] [id number] [address] [place] [address], [place] [address] Feb, 2013 [facility] [address] [id number] [address] [place] [address], [place] [address] Feb, 2013 [facility] [address] [id number] [address] [place] [address], [place] [address] Feb, 2013 [facility] [address] [id number] [address] [place] [address], [place] [address] Feb, 2013 [facility] [address] [id number] [address] [place] [address], [place] [address] Feb, 2013 [facility] [address] [id number] [address] [place] [address], [place] [address] Feb, 2013 [facility] [address] [id number] [address] [place] [address], [place] [address] Feb, 2013 [facility] [address] [id number] [address] [place] [address], [place] [address] Feb, 2013 [facility] [address] [id number] [address] [place] [address], [place] [address] Jan, [facility] [address] [id number] [address] [place] [address], [place] [address] Jan, [facility] [address] [id number] [facility] [place] [address] Jan, [facility] [address] [id number] [facility] [place] [address] Jan, [facility] [address] [id number] [facility] [place] [address] Jan, [facility] [address] [id number] [address] [place] [address], [place] [address] Jan, [facility] [address] [id number] [address] [place] [address], [place] [address] Jan, [facility] [address] [id number] [address] [place] [address], [place] [address] Jan, [facility] [address] [id number] [address] [place] [address], [place] [address] Jan, [facility] [address] [id number] [address] [place] [address], [place] [address] Jan, [facility] [address] [id number] [address] [place] [address], [place] [address] Jan, [facility] [address] [id number] [address] [place] [address], [place] [address] Jan, [facility] [address] [id number] [address] [place] [address], [place] [address] Jan, [facility] [address] [id number] [address] [place] [address], [place] [address] Dec, [facility] [address] [id number] [address] [place] [address], [place] [address] Dec, [facility] [address] [id number] [address] [place] [address], [place] [address] Dec, [facility] [address] [id number] [address] [place] [address], [place] [address] Dec, [facility] [address] [id number] [address] [place] [address], [place] [address] Dec, [facility] [address] [id number] [address] [place] [address], [place] [address] Dec, [facility] [address] [id number] [address] [place] [address], [place] [address] Dec, [facility] [address] [id number] [address] [place] [address], [place] [address] Dec, [facility] [address] [id number] [address] [place] [address], [place] [address] Dec, [facility] [address] [id number] [address] [place] [address], [place] [address] Dec, [facility] [address] [id number] [address] [place] [address], [place] [address] Dec, [facility] [address] [id number] [address] [place] [address], [place] [address] Dec, [facility] [address] [id number] [address] [place] [address], [place] [address] Dec, [facility] [address] [id number] [address] [place] [address], [place] [address] Dec, [facility] [address] [id number] [address] [place] [address], [place] [address] Dec, [facility] [address] [id number] [address] [place] [address], [place] [address] Dec, [facility] [address] [id number] [address] [place] [address], [place] [address] Dec, [facility] [address] [id number] [address] [place] [address], [place] [address] Dec, [facility] [address] [id number] [address] [place] [address], [place] [address] Nov, [facility] [address] [id number] [address] [place] [address], [place] [address] Nov, [facility] [address] [id number] [facility] [place] [address] 24 Nov, 2013 [facility] [address] [id number] [facility] [place] [address] Nov, [facility] [address] [id number] [facility] [place] [address] 16 Nov, 2013 [facility] [address] [id number] [address] [place] [address], [place] [address] Nov, [facility] [address] [id number] [address] [place] [address], [place] [address] Nov, [facility] [address] [id number] [address] [place] [address], [place] [address] Nov, [facility] [address] [id number] [address] [place] [address], [place] [address] Nov, [facility] [address] [id number] [address] [place] [address], [place] [address] Nov, [facility] [address] [id number] [address] [place] [address], [place] [address] Nov, [facility] [address] [id number] [address] [place] [address], [place] [address] Nov, [facility] [address] [id number] [address] [place] [address], [place] [address] Nov, [facility] [address] [id number] [address] [place] [address], [place] [address] Nov, [facility] [address] [id number] [address] [place] [address], [place] [address] Nov, [facility] [address] [id number] [address] [place] [address], [place] [address] Nov, [facility] [address] [id number] [address] [place] [address], [place] [address] Nov, [facility] [address] [id number] [address] [place] [address], [place] [address] Nov, [facility] [address] [id number] [address] [place] [address], [place] [address] Nov, [facility] [address] [id number] [address] [place] [address], [place] [address] Nov, [facility] [address] [id number] [address] [place] [address], [place] [address] October, [facility] [address] [id number] [address] [place] [address], [place] [address] October, [facility] [address] [id number] [address] [place] [address], [place] [address] October, [facility] [address] [id number] [address] [place] [address], [place] [address] October, [facility] [address] [id number] [address] [place] [address], [place] [address] Sep, [facility] [address] [id number] [address] [place] [address], [place] [address] Sep, [facility] [address] [id number] [address] [place] [address], [place] [address] Sep, [facility] [address] [id number] [address] [place] [address], [place] [address] Sep, [facility] [address] [id number] [address] [place] [address], [place] [address] Sep, [facility] [address] [id number] [address] [place] [address], [place] [address] Sep, [facility] [address] [id number] [address] [place] [address], [place] [address] Sep, [facility] [address] [id number] [address] [place] [address], [place] [address] Sep, [facility] [address] [id number] [address] [place] [address], [place] [address] Sep, [facility] [address] [id number] [address] [place] [address], [place] [address] Aug, [facility] [address] [id number] [address] [place] [address], [place] [address] Aug, [facility] [address] [id number] [address] [place] [address], [place] [address] Aug, [facility] [address] [id number] [address] [place] [address], [place] [address] Aug, [facility] [address] [id number] [address] [place] [address], [place] [address] Aug, [facility] [address] [id number] [address] [place] [address], [place] [address] Aug, [facility] [address] [id number] [address] [place] [address], [place] [address] Aug, [facility] [address] [id number] [address] [place] [address], [place] [address] Aug, [facility] [address] [id number] [address] [place] [address], [place] [address] Jul, [facility] [address] [id number] [address] [place] [address], [place] [address] Jul, [facility] [address] [id number] [address] [place] [address], [place] [address] Jun, [facility] [address] [id number] [address] [place] [address], [place] [address] Jun, [facility] [address] [id number] [address] [place] [address], [place] [address] Jun, [facility] [address] [id number] [address] [place] [address], [place] [address] Jun, [facility] [address] [id number] [address] [place] [address], [place] [address] Jun, [facility] [address] [id number] [address] [place] [address], [place] [address] Jun, [facility] [address] [id number] [address] [place] [address], [place] [address] Jun, [facility] [address] [id number] [address] [place] [address], [place] [address] Jun, [facility] [address] [id number] [address] [place] [address], [place] [address] Jun, [facility] [address] [id number] [address] [place] [address], [place] [address] Jun, [facility] [address] [id number] [address] [place] [address], [place] [address] Jun, [facility] [address] [id number] [address] [place] [address], [place] [address] Jun, [facility] [address] [id number] [address] [place] [address], [place] [address] May, [facility] [address] [id number] [address] [place] [address], [place] [address] May, [facility] [address] [id number] [address] [place] [address], [place] [address] May, [facility] [address] [id number] [address] [place] [address], [place] [address] May, [facility] [address] [id number] [address] [place] [address], [place] [address] May, [facility] [address] [id number] [address] [place] [address], [place] [address] May, [facility] [address] [id number] [address] [place] [address], [place] [address] May, [facility] [address] [id number] [address] [place] [address], [place] [address] May, [facility] [address] [id number] [address] [place] [address], [place] [address] May, [facility] [address] [id number] [address] [place] [address], [place] [address] May, [facility] [address] [id number] [address] [place] [address], [place] [address] May, [facility] [address] [id number] [address] [place] [address], [place] [address] May, [facility] [address] [id number] [address] [place] [address], [place] [address] May, [facility] [address] [id number] [address] [place] [address], [place] [address] Apr, [facility] [address] [id number] [address] [place] [address], [place] [address] Apr, [facility] [address] [id number] [address] [place] [address], [place] [address] Mar, [facility] [address] [id number] [address] [place] [address], [place] [address] Mar, [facility] [address] [id number] [address] [place] [address], [place] [address] 24 Feb, 2013 [facility] [address] [id number] [address] [place] [address], [place] [address] Feb, [facility] [address] [id number] [address] [place] [address], [place] [address] Feb, [facility] [address] [id number] [address] [place] [address] Feb, [facility] [address] [id number] [address] [place] [address] Jan, [facility] [address] [id number] [address] [place] [address], [place] [address] Jan, [facility] [address] [id number] [address] [place] [address], [place] [address] Jan, [facility] [address] [id number] [address] [place] [address], [place] [address] Jan, [facility] [address] [id number] [address] [place] [address], [place] [address] Jan, [facility] [address] [id number] [address] [place] [address], [place] [address] Jan, [facility] [address] [id number] [address] [place] [address], [place] [address] Dec, [facility] [address] [id number] [address] [place] [address], [place] [address] Dec, [facility] [address] [id number] [address] [place] [address], [place] [address] Dec, [facility] [address] [id number] [address] [place] [address], [place] [address] Dec, [facility] [address] [id number] [address] [place] [address], [place] [address] Nov, [facility] [address] [id number] [address] [place] [address], [place] [address] October, [facility] [address] [id number] [address] [place] [address], [place] [address] October, [facility] [address] [id number] [address] [place] [address], [place] [address] October, [facility] [address] [id number] [address] [place] [address], [place] [address] Sep, [facility] [address] [id number] [address] [place] [address], [place] [address] Sep, [facility] [address] [id number] [address] [place] [address], [place] [address] Jun, [facility] [address] [id number] [address] [place] [address], [place] [address] Jun, [facility] [address] [id number] [address] [place] [address], [place] [address] Jun, [facility] [address] [id number] [address] [place] [address], [place] [address] Apr, [facility] [address] [id number] [address] [place] [address], [place] [address] Apr, [facility] [address] [id number] [address] [place] [address], [place] [address] Apr, [facility] [address] [id number] [address] [place] [address], [place] [address] Apr, [facility] [address] [id number] [address] [place] [address], [place] [address] Mar, [facility] [address] [id number] [address] [place] [address], [place] [address] Mar, [facility] [address] [id number] [address] [place] [address], [place] [address] Mar, [facility] [address] [id number] [address] [place] [address], [place] [address] Mar, [facility] [address] [id number] [address] [place] [address], [place] [address] Feb, [facility] [address] [id number] [address] [place] [address], [place] [address] Feb, [facility] [address] [id number] [address] [place] [address], [place] [address] Feb, [facility] [address] [id number] [address] [place] [address], [place] [address] Jan, [facility] [address] [id number] [address] [place] [address], [place] [address] Jan, [facility] [address] [id number] [address] [place] [address], [place] [address] Jan, [facility] [address] [id number] [address] [place] [address], [place] [address] Jan, [facility] [address] [id number] [address] [place] [address], [place] [address] Dec, [facility] [address] [id number] [address] [place] [address], [place] [address] Dec, [facility] [address] [id number] [address] [place] [address], [place] [address] Nov, [facility] [address] [id number] [address] [place] [address], [place] [address] Nov, [facility] [address] [id number] [address] [place] [address], [place] [address] October, [facility] [address] [id number] [address] [place] [address], [place] [address] October, [facility] [address] [id number] [address] [place] [address], [place] [address] October, [facility] [address] [id number] [address] [place] [address], [place] [address] Sep, [facility] [address] [id number] [address] [place] [address], [place] [address] Sep, [facility] [address] [id number] [address] [place] [address], [place] [address] Sep, [facility] [address] [id number] [address] [place] [address], [place] [address] Aug, [facility] [address] [id number] [address] [place] [address], [place] [address] Aug, [facility] [address] [id number] [address] [place] [address], [place] [address] Aug, [facility] [address] [id number] [address] [place] [address], [place] [address] Aug, [facility] [address] [id number] [address] [place] [address], [place] [address] Aug, [facility] [address] [id number] [address] [place] [address], [place] [address] Jul, [facility] [address] [id number] [address] [place] [address], [place] [address] 16 Jul, 2011 [facility] [address] [id number] [address] [place] [address], [place] [address] 13 Jul, 2011 [facility] [address] [id number] [address] [place] [address], [place] [address] 09 Jul, 2011 [facility] [address] [id number] [address] [place] [address], [place] [address] 07 Jul, 2011 [facility] [address] [id number] [address] [place] [address], [place] [address] Jul, 2011 [facility] [address] [id number] [address] [place] [address], [place] [address] Jul, [facility] [address] [id number] [address] [place] [address], [place] [address] Jul, [facility] [address] [id number] [address] [place] [address], [place] [address] Jun, [facility] [address] [id number] [address] [place] [address], [place] [address] Jun, [facility] [address] [id number] [address] [place] [address], [place] [address] May, [facility] [address] [id number] [address] [place] [address], [place] [address] May, [facility] [address] [id number] [address] [place] [address], [place] [address] May, [facility] [address] [id number] [address] [place] [address], [place] [address] May, [facility] [address] [id number] [address] [place] [address], [place] [address] Apr, [facility] [address] [id number] [address] [place] [address], [place] [address] Apr, [facility] [address] [id number] [address] [place] [address], [place] [address] Apr, [facility] [address] [id number] [address] [place] [address], [place] [address] 18 Mar, 2011 [facility] [address] [id number] [address] [place] [address], [place] [address] 18 Mar, 2011 [facility] [address] [id number] [address] [place] [address], [place] [address] 18 Mar, 2011 [facility] [address] [id number] [address] [place] [address], [place] [address] 2011 [facility] [address] [id number] [address] [place] [address], [place] [address] Dec, [facility] [address] [id number] [address] [place] [address], [place] [address] October, [facility] [address] [id number] [address] [place] [address], [place] [address] 28 May, 2010 [facility] [address] [id number] [address] [place] [address], [place] [address] 13 May, 2010 [facility] [address] [id number] [address] [place] [address], [place] [address] 13 May, 2010 [facility] [address] [id number] [address] [place] [address], [place] [address] 06 May, 2010 [facility] [address] [id number] [address] [place] [address], [place] [address] Mar, [facility] [address] [id number] [address] [place] [address], [place] [address] Mar, [facility] [address] [id number] [address] [place] [address], [place] [address] 31 May, 2009 [facility] [address] [id number] [address] [place] [address], [place] [address] 30 May, 2009 [facility] [address] [id number] [address] [place] [address], [place] [address] 08 May, 2009 [facility] [address] [id number] [address] [place] [address], [place] [address] 08 May, 2009 [facility] [address] [id number] [address] [address] Apr, [facility] [address] [facility] [id number] [address] [address] Apr, [facility] [address] [facility] [id number] [address] [address] October, IMMUNIZATIONS No Known Immunizations SOCIAL HISTORY [...]
--- OUTSIDE RECORDS SUMMARY | 2020-01-13 11:44 | XMS REPORT ---
Author Author Monique RAHMAN [facility] Address [address] [place] [address] Care Team Providers Care Tanker Service Attendant Name Role Phone RASHEED RAHMAN Unavailable PROBLEMS Type Condition ICD9-CM Code DJI82-AS Code Onset Dates Condition S tatus SNOMED Code Problem History of illicit drug use Z87.898 Ac tive 345316263 Problem Snoring R06.83 Active 71773125 Problem Impaired circulation I99.9 Active 84851270 Problem MRSA (methicillin resistant staph aureus) culture positive Z22.322 Active 157956443 Problem Panic disorder without agoraphobia F41.0 Active 74505568 Problem Dysthymic disorder F34.1 Active 7 3208675 Problem Mood disorder F39 Active 714370 05 Problem Arthritis M19.90 Active 4941339 Problem Mild chronic obstructive pulmonary disease J44.9 Active 067822545 Problem Mild persistent asthma without complication J45.30 Active 636332062 Problem Essential hypertension I10 Active 07210274 Problem On home oxygen therapy Z99.81 Active 079225763660 Problem Social phobia F40.10 Active 208562 02 Problem Neuropathy G62.9 Active 877823420 Problem 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 Active 418730656 Problem Major depressive disorder, recurrent episode, moderate F33.1 Active 001720025 Problem Psychotic disorder F29 Active 6 2700650 Problem Hypertension, benign I10 Active 65674176 Problem Onychomycosis B35.1 Active 682822 008 Problem Body mass index (BMI) 40.0-44.9, adult Z68.41 Active 280410520 Problem Varicose veins of both lower extremities I83.93 Active 19660632 Problem Sciatica, left side M54.32 Active 07530565 Problem Agoraphobia F40.00 Active 65823996 Problem Fatigue R53.83 Active 18232003 Problem Major depressive disorder in full remission F32.5 Active 94137785 Problem Slow transit constipation K59.01 Acti ve 69712147 Problem Chronic obstructive pulmonary disease, unspecified COPD ty pe J44.9 Active 44945076 Problem Unspecified psychosis not du e to a substance or known physiological condition F29 Active 864816234 ALLERGIES No Information ENCOUNTERS Encounter Location Date Diagnosis [place] [address] [address] Nov, [place] [address] [address] Sep, Abdominal pain, right upper quadrant R10.11 [place] [address] [address] Sep, Major depressive disorder, r ecurrent episode, moderate F33.1 ; Panic disorder without agoraphobia F41.0 and Morbid obesity E66.01 [place] [address] [address] Aug, Bronchitis J40 [place] [address] [address] Aug, Sciatica, left side M54.32 a nd Morbid obesity E66.01 [place] [address] [address] Aug, [place] [address] [address] Aug, Sciatica, left side M54.32 [place] [address] [address] Aug, Neuropathy G62.9 ; Onychomyc osis B35.1 ; Callus of foot L84 and Skin fissures R23.4 [place] [address] [address] [place] [id number] [address] [place] [address] Jul, [place] [address] [address] Jul, Morbid obesity E66.01 [place] [address] [address] [place] [id number] [address] [place] [address] Jul, Unspecified psychosis not du e to a substance or known physiological condition F29 ; Chronic obstructive pulmonary disease, unspecified COPD type J44.9 and Body mass index (BMI) 40.0-44.9, adult Z68.41 [place] [address] [address] Jun, [place] [address] [address] Jun, Morbid obesity E66.01 [place] [address] [address] May, Morbid obesity E66.01 [place] [address] [address] May, Encounter for immunization Z 23 [place] [address] [address] May, Major depressive disorder, r ecurrent episode, moderate F33.1 ; Panic disorder without agoraphobia F41.0 and Morbid obesity E66.01 [place] [address] [address] May, Major depressive disorder in full remission F32.5 and Panic disorder without agoraphobia F41.0 [place] [address] [address] [place] [id number] [address] [place] [address] Apr, Morbid obesity E66.01 [place] [address] [address] Apr, Slow transit constipation K5 9.01 and Cellulitis of left lower extremity L03.116 [place] [address] [address] [place] [id number] [address] [place] [address] Apr, Morbid obesity E66.01 [place] [address] [address] Apr, [place] [address] [address] Apr, Major depressive disorder, r ecurrent episode, moderate F33.1 and Panic disorder without agoraphobia F41.0 [place] [address] [address] Mar, Viral upper respiratory trac t infection J06.9 [place] [address] [address] Mar, Bronchitis J40 and Encounter for immunization Z23 [address] [address] Mar, Morbid obesity E66.01 [place] [address] [address] Feb, Major depressive disorder, r ecurrent episode, moderate F33.1 and Panic disorder without agoraphobia F41.0 [place] [address] [address] Feb, Morbid obesity E66.01 [place] [address] [address] Feb, Onychomycosis B35.1 ; 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 and Xerosis of skin L85.3 [place] [address] [address] Feb, Major depressive disorder, r ecurrent episode, moderate F33.1 ; Panic disorder without agoraphobia F41.0 and Morbid obesity E66.01 [place] [address] [address] Jan, Major depressive disorder in full remission F32.5 and Panic disorder without agoraphobia F41.0 [place] [address] [address] Jan, Pneumonia of both lower lobe s due to infectious organism J18.1 and Morbid obesity E66.01 [facility] [address] [facility] [id number] [address] [place] [address] Jan, [place] [address] [facility] [id number] [address] [place] [address] Jan, Major depressive disorder in full remission F32.5 and Panic disorder without agoraphobia F41.0 [place] [address] [facility] [id number] [address] [place] [address] Jan, [place] [address] [facility] [id number] [address] [place] [address] Jan, Major depressive disorder, r ecurrent episode, moderate F33.1 ; Panic disorder without agoraphobia F41.0 and Morbid obesity E66.01 [place] [address] [address] [place] [id number] [address] [place] [address] Dec, Bilious vomiting with nausea R11.14 ; Coughing R05 and Choking, subsequent encounter T17.308D [place] [address] [address] [place] [id number] [address] [place] [address] Dec, Morbid obesity E66.01 [place] [address] [facility] [id number] [address] [place] [address] Dec, Major depressive disorder, r ecurrent episode, moderate F33.1 and Panic disorder without agoraphobia F41.0 [place] [address] [facility] [id number] [address] [place] [address] Dec, [place] [address] [facility] [id number] [address] [place] [address] Dec, Major depressive disorder, r ecurrent episode, moderate F33.1 [place] [address] [facility] [id number] [address] [place] [address] Nov, Major depressive disorder, r ecurrent episode, moderate F33.1 ; Panic disorder without agoraphobia F41.0 and Morbid obesity E66.01 [place] [address] [address] 20 Nov, 2018 Morbid obesity E66.01 [place] [address] [address] Nov, Major depressive disorder, r ecurrent episode, moderate F33.1 and Panic disorder without agoraphobia F41.0 [facility] [place] [address] [address] Nov, Allergic reaction, initial e ncounter T78.40XA and Morbid obesity E66.01 [place] [address] [address] Nov, [place] [address] [address] Nov, Morbid obesity E66.01 ; Swal lowing problem R13.10 and Hypertension, benign I10 [facility] WALK IN [place] [address] [address] 07 Nov, 2018 Morbid obesity E66.01 ; COPD exacerbation J44.1 and Non- recurrent acute suppurative otitis media of left ear without spontaneous rupture of tympanic membrane H66.002 [place] [address] [address] 07 Nov, 2018 Onychomycosis B35.1 ; Neurop athy G62.9 and Fissure in skin of foot R23.4 [place] [address] [address] October, Major depressive disorder, r ecurrent episode, moderate F33.1 ; Panic disorder without agoraphobia F41.0 and Morbid obesity E66.01 [facility]ALK IN [place] [address] [address] October, Viral upper respiratory trac t infection J06.9 [place] [address] [address] October, [facility] [address] [facility] [id number] [address] [place] [address] October, Major depressive disorder, r ecurrent episode, moderate F33.1 and Panic disorder without agoraphobia F41.0 [facility] [address] [id number] [address] [place] [address] October, [facility] [address] [facility] [id number] [address] [place] [address] October, [facility] [address] [id number] [address] [place] [address] October, [facility] [address] [facility] [id number] [address] [place] [address] October, [facility] [address] [facility] [id number] [address] [place] [address] October, [facility] [address] [facility] [id number] [address] [place] [address] October, [facility] [address] [facility] [id number] [address] [place] [address] October, Major depressive disorder, r ecurrent episode, moderate F33.1 and Panic disorder without agoraphobia F41.0 [facility] [address] [facility] [id number] [address] [place] [address] Sep, Morbid obesity E66.01 and Vane mbar neuritis M54.16 [facility] [address] [facility] [id number] [address] [place] [address] Sep, Panic disorder without agora phobia F41.0 and Major depressive disorder, recurrent episode, moderate F33.1 [facility] [address] [facility] [id number] [address] [place] [address] Sep, Gastroenteritis K52.9 ; Low back pain M54.5 ; Other chronic pain G89.29 and Morbid obesity E66.01 [facility] [address] [facility] [id number] [address] [place] [address] Sep, Major depressive disorder, r ecurrent episode, moderate F33.1 ; Panic disorder without agoraphobia F41.0 and Social phobia F40.10 [place] [address] [place] [address] Sep, Panic disorder without agora phobia F41.0 [place] [address] [address] [place] [id number] [address] [place] [address] Sep, Panic disorder without agora phobia F41.0 [place] [address] [address] Aug, Panic disorder without agora phobia F41.0 ; Major depressive disorder, recurrent episode, moderate F33.1 ; Social phobia F40.10 ; Psychotic disorder F29 ; Tardive dyskinesia G24.01 and Morbid obesity E66.01 [place] [address] [address] Aug, Dysthymic disorder F34.1 and Psychotic disorder F29 [place] [address] [address] Aug, [facility] [place] [facility] Z[facility].00 ; Morbid obesity E66.01 and 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 [place] [address] [address] [place] [id number] [address] [place] [address] Aug, Dysthymic disorder F34.1 and Psychotic disorder F29 [place] [address] [address] Aug, Neuropathy G62.9 ; Onychomyc osis B35.1 and Xerosis of skin L85.3 [place] [address] [address] [place] [id number] [address] [place] [address] Jul, [place] [address] [place] [id number] [address] [place] [address] Jul, Mood disorder F39 ; Wheezing R06.2 ; Choking, initial encounter T17.308A and Coughing R05 [facility] [address] [address] Jul, Low back pain M54.5 [facility] [address] [place] [id number] [address] [place] [address] Jun, Flu-like symptoms R68.89 ; B PA 45.0-49.9, adult Z68.42 ; COPD exacerbation J44.1 and Acute bronchitis J20.9 [place] [address] [address] Jun, [place] [address] [address] May, [place] [address] [address] May, Onychomycosis B35.1 and 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.610 [place] [address] [address] May, Low back pain M54.5 and Abdoulaye a leg R60.0 [place] [address] [address] May, BMI 45.0-49.9, adult Z68.42 ; Well woman exam with routine gynecological exam Z01.419 and Breast cancer screening Z12.31 [place] [address] [address] Apr, Arthritis M19.90 [place] [address] [address] Apr, Arthritis M19.90 and Otalgia of both ears H92.03 [place] [address] [address] [place] [id number] [address] [place] [address] Feb, [place] [address] [address] Feb, Low back pain M54.5 ; Other chronic pain G89.29 ; Exertional asthma J45.990 and Encounter for immunization Z23 [facility] [address] [place] [address] Feb, Skin fissures R23.4 ; Neurop athy G62.9 and Onychomycosis B35.1 [facility] [address] [place] [id number] [address] [place] [address] 05 Feb, 2018 Dysthymic disorder F34.1 [place] [address] [place] [address] 04 Feb, 2018 [place] [address] [address] Jan, [place] [address] [address] Jan, Abrasion of right elbow, ini tial encounter S50.311A ; Abrasion, right knee, initial encounter S80.211A and Sprain of other ligament of right ankle, initial encounter S93.491A [place] [address] [address] Jan, [facility] [address] [place] [id number] [address] [place] [address] Jan, Injury of left ankle, initia l encounter S99.912A ; Fall down stairs, initial encounter W10.8XXA and BMI 45.0-49.9, adult Z68.42 [place] [address] [place] [address] Jan, COPD exacerbation J44.1 [place] [address] [address] [place] [id number] [address] [place] [address] Jan, 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 [place] [address] [address] [place] [id number] [address] [place] [address] 08 Jan, 2018 Bronchitis J40 and Acute sup purative otitis media of left ear without spontaneous rupture of tympanic membrane, recurrence not specified H66.002 [place] [address] [address] Jan, [place] [address] [place] [id number] [place] [address] Jan, Bronchitis J40 and BMI 40.0- 44.9, adult Z68.41 [place] [address] [address] Jan, [place] [address] [address] Dec, Gastric pain R10.9 [place] [address] [place] [id number] [place] [address] Dec, [place] [address] [address] Dec, History of illicit drug use Z87.898 ; Neuropathy G62.9 ; COPD (chronic obstructive pulmonary disease) with chronic bronchitis J44.9 and Acute pain of right knee M25.561 [place] [address] [address] Nov, [place] [address] [address] Nov, Onychomycosis B35.1 and Cont usion of left foot, subsequent encounter S90.32XD [place] [address] [address] [place] [id number] [address] [place] [address] Nov, COPD exacerbation J44.1 [place] [address] [address] Sep, [place] [address] [place] [id number] [place] [address] Sep, Dysthymic disorder F34.1 ; T obacco abuse Z72.0 ; Pain in right knee M25.561 ; Pain in left knee M25.562 ; Other chronic pain G89.29 and BMI 40.0- 44.9, adult Z68.41 [place] [address] [address] Aug, Major depressive disorder, r ecurrent episode, moderate F33.1 and Social phobia F40.[address] [address] 14 Aug, 2017 Dysthymic disorder F34.1 ; N on-pressure chronic ulcer of left thigh, unspecified ulcer stage L97.129 ; Tobacco abuse Z72.0 ; Mild chronic obstructive pulmonary disease J44.9 and Forgetfulness R68.[address] [address] 09 Aug, 2017 Onychomycosis B35.1 ; Fissur e in skin of foot R23.4 and Foot callus L84 [facility] N [address] [address] Jul, Right medial knee pain M25.5 61 ; Upper respiratory tract infection, unspecified type J06.9 and BMI 40.0-44.9, adult Z68.41 [facility] [address] [address] 08 Jul, 2017 Nausea and vomiting, intract ability of vomiting not specified, unspecified vomiting type R11.2 ; Left ear pain H92.02 and Gastric pain R10.9 [place] [address] [address] Apr, Encounter for immunization Z [address] [address] Apr, Onychomycosis B35.1 ; Xerosi s of skin L85.3 ; Neuropathy G62.9 and 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 [place] [address] [address] Jan, Onychomycosis B35.1 and Neur opathy G62.9 [facility] [address] [facility] [id number] [address] [place] [address] Dec, [facility] [address] [id number] [address] [place] [address] Dec, [facility] [address] [facility] [id number] [address] [place] [address] Nov, [facility] [address] [facility] [id number] [address] [place] [address] Aug, [facility] [address] [facility] [id number] [address] [place] [address] Aug, [facility] [address] [facility] [id number] [address] [place] [address] Jul, [facility] [address] [facility] [id number] [address] [place] [address] Jul, [facility] [address] [facility] [id number] [address] [place] [address] Jul, Decubitus ulcer of left thig h, stage 2 L89.892 [facility] [address] [facility] [id number] [address] [place] [address] 17 Jul, 2016 Decubitus ulcer of left thig h, stage 2 L89.892 [facility] [address] [facility] [id number] [address] [place] [address] 17 Jul, 2016 [facility] [address] [facility] [id number] [address] [place] [address] 15 Jul, 2016 Decubitus ulcer of left thig h, stage 2 L89.892 [facility] [address] [facility] [id number] [address] [place] [address] 14 Jul, 2016 [facility] [address] [facility] [id number] [address] [place] [address] 13 Jul, 2016 Cellulitis of other specifie d site L03.818 ; Illicit drug use F19.90 and Decubitus ulcer of left thigh, stage 2 L89.892 [facility] [address] [facility] [id number] [address] [place] [address] Jul, [facility] [address] [facility] [id number] [address] [place] [address] Jul, Cellulitis of right breast N 61.0 [facility] [address] [facility] [id number] [address] [place] [address] Jun, [facility] [address] [facility] [id number] [address] [place] [address] Jun, [facility] [address] [place] [id number] [address] [place] [address] Jun, Wheezing R06.2 and Arthralgi a, unspecified joint M25.50 [facility] [address] [place] [id number] [address] [place] [address] May, [facility] [address] [place] [id number] [address] [place] [address] May, [facility] [address] [place] [id number] [address] [place] [address] May, [facility] [address] [place] [id number] [address] [place] [address] May, Shortness of breath R06.02 [facility] [address] [facility] [id number] [address] [place] [address] May, Onychomycosis B35.1 and Fiss ure in skin of foot R23.4 [facility] [address] [facility] [id number] [address] [place] [address] Apr, [facility] [address] [facility] [id number] [address] [place] [address] Apr, Dizziness R42 [facility] [address] [place] [id number] [address] [place] [address] 14 Apr, 2016 Shortness of breath R06.02 ; Essential hypertension I10 ; Dizziness R42 and On home oxygen therapy Z99.81 [facility] [address] [id number] [address] [place] [address] Apr, [facility] [address] [id number] [address] [place] [address] 08 Apr, 2016 [facility] [address] [id number] [address] [place] [address] Apr, [facility] [address] [id number] [address] [place] [address] Apr, [facility] [address] [id number] [address] [place] [address] Apr, [facility] [address] [id number] [address] [place] [address] Apr, [facility] [address] [id number] [address] [place] [address] Apr, [facility] [address] [id number] [address] [place] [address] Mar, Mild chronic obstructive pul monary disease J44.9 [facility] [address] [id number] [address] [place] [address] Mar, [facility] [address] [id number] [address] [place] [address] Mar, Epigastric pain R10.13 ; Low back pain M54.5 ; Other chronic pain G89.29 and Breast cancer screening Z12.39 [facility] [address] [id number] [address] [place] [id number] Mar, [facility] [address] [id number] [address] [place] [id number] Mar, [facility] [address] [id number] [address] [place] [id number] Feb, [facility] [address] [facility] [id number] [address] [place] [id number] 08 Feb, 2016 [place] [address] [address] [facility] [id number] [address] [place] [id number] Feb, Fissure in skin of foot R23. 4 and Onychomycosis B35.1 [place] [address] [address] [place] [id number] [address] [place] [id number] Jan, Agoraphobia F40.00 [place] [address] [address] [facility] [facility] [id number] [address] [place] [address] Dec, Agoraphobia F40.00 [place] [address] [address] [place] [id number] [address] [place] [address] Dec, Mild persistent asthma witho ut complication J45.30 ; Dysthymic disorder F34.1 and Upper respiratory tract infection, unspecified type J06.9 [place] [id number] [place] [address] Nov, Agoraphobia F40.00 [place] [address] [place] [id number] [address] [place] [address] October, Agoraphobia F40.00 [place] [address] [place] [id number] [address] [place] [address] Sep, Panic disorder without agora phobia F41.0 ; Agoraphobia F40.00 and Dysthymic disorder F34.1 [place] [address] [place] [id number] [address] [place] [address] Sep, Panic attacks F41.0 [place] [address] [facility] [id number] [address] [place] [address] Sep, [place] [address] [place] [id number] [address] [place] [address] Sep, Panic disorder without agora phobia F41.0 ; Varicose veins of both lower extremities I83.93 and Fatigue R53.83 [place] [address] [address] [place] [id number] [address] [place] [address] 14 Sep, 2015 Fatigue R53.83 [place] [address] [address] 05 Sep, 2015 [place] [address] [place] [id number] [address] [place] [address] Aug, [place] [address] [address] Aug, [place] [address] [address] Aug, Type 2 diabetes mellitus wit h diabetic neuropathic arthropathy E11.610 [place] [address] [address] Aug, Panic disorder without agora phobia F41.0 ; Agoraphobia F40.00 and Dysthymic disorder F34.1 [place] [address] [place] [id number] [address] [place] [address] Aug, Shortness of breath R06.02 ; Panic attacks F41.0 ; COPD (chronic obstructive pulmonary disease) J44.9 ; Tobacco abuse Z72.0 ; Family history of diabetes mellitus Z83.3 and Weight gain R63.5 [place] [address] [address] [place] [id number] [address] [place] [address] Aug, [place] [address] [place] [id number] [address] [place] [address] Jul, [place] [address] [place] [id number] [address] [place] [address] Jun, Onychomycosis B35.1 ; Neurop athy G62.9 and Impaired circulation I99.9 [place] [address] [address] [place] [id number] [address] [place] [address] 09 Mar, 2015 Fissure in skin of foot R23. 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 [facility] [address] [facility] [id number] [address] [place] [address] 18 Feb, 2015 Family history of coronary a rteriosclerosis V17.3 [facility] [address] [facility] [id number] [address] [place] [address] 15 Feb, 2015 Allergic rhinitis due to darien agnieszka 477.0 ; Unspecified breast screening V76.10 ; Anxiety 300.00 and Family history of coronary arteriosclerosis V17.3 [facility] [address] [facility] [id number] [address] [place] [address] Jan, [facility] [address] [facility] [id number] [address] [place] [address] Dec, [facility] [address] [place] [id number] [address] [place] [address] Dec, Onychomycosis 110.1 and Skin fissures 709.8 [facility] [address] [place] [id number] [address] [place] [address] Sep, [facility] [address] [facility] [id number] [address] [place] [address] Sep, [facility] [address] [place] [id number] [address] [place] [address] Aug, [facility] [address] [facility] [id number] [address] [place] [address] Aug, [facility] [address] [facility] [id number] [address] [place] [address] Jul, [facility] [address] [facility] [id number] [address] [place] [address] Jul, [facility] [address] [facility] [id number] [address] [place] [address] Jun, [facility] [address] [facility] [id number] [address] [place] [address] Jun, [facility] [address] [facility] [id number] [address] [place] [address] Jun, [facility] [address] [id number] [address] [place] [address], [place] [address] Jun, [facility] [address] [id number] [address] [place] [address], [place] [address] Jun, [facility] [address] [id number] [address] [place] [address], [place] [address] May, [facility] [address] [id number] [address] [place] [address], [place] [address] May, [facility] [address] [id number] [address] [place] [address], [place] [address] May, [facility] [address] [id number] [address] [place] [address], [place] [address] May, [facility] [address] [id number] [address] [place] [address], [place] [address] May, [facility] [address] [id number] [address] [place] [address], [place] [address] May, [facility] [address] [id number] [address] [place] [address], [place] [address] May, [facility] [address] [id number] [address] [place] [address], [place] [address] May, [facility] [address] [id number] [address] [place] [address], [place] [address] Apr, [facility] [address] [id number] [address] [place] [address], [place] [address] Apr, [facility] [address] [id number] [address] [place] [address], [place] [address] Apr, [facility] [address] [id number] [address] [place] [address], [place] [address] Apr, [facility] [address] [id number] [address] [place] [address], [place] [address] Apr, [facility] [address] [id number] [address] [place] [address], [place] [address] Apr, [facility] [address] [id number] [address] [place] [address], [place] [address] Apr, [facility] [address] [id number] [address] [place] [address], [place] [address] Apr, [facility] [address] [id number] [address] [place] [address], [place] [address] Apr, [facility] [address] [id number] [address] [place] [address], [place] [address] Apr, [facility] [address] [id number] [address] [place] [address], [place] [address] Mar, [facility] [address] [id number] [address] [place] [address], [place] [address] Mar, [facility] [address] [id number] [address] [place] [address], [place] [address] Mar, [facility] [address] [id number] [address] [place] [address], [place] [address] Mar, [facility] [address] [id number] [address] [place] [address], [place] [address] Mar, [facility] [address] [id number] [address] [place] [address], [place] [address] Mar, [facility] [address] [id number] [address] [place] [address], [place] [address] Mar, [facility] [address] [id number] [address] [place] [address], [place] [address] Mar, [facility] [address] [id number] [address] [place] [address], [place] [address] Mar, [facility] [address] [id number] [address] [place] [address], [place] [address] Mar, [facility] [address] [id number] [address] [place] [address], [place] [address] Mar, [facility] [address] [id number] [address] [place] [address], [place] [address] Mar, 2013 [facility] [address] [id number] [address] [place] [address], [place] [address] 22 Mar, 2014 [facility] [address] [id number] [address] [place] [address], [place] [address] 22 Mar, 2014 [facility] [address] [id number] [address] [place] [address], [place] [address] 22 Mar, 2014 [facility] [address] [id number] [address] [place] [address], [place] [address] 20 Mar, 2014 [facility] [address] [id number] [address] [place] [address], [place] [address] 20 Mar, 2014 [facility] [address] [id number] [address] [place] [address], [place] [address] 16 Mar, 2014 [facility] [address] [id number] [address] [place] [address], [place] [address] 16 Mar, 2014 [facility] [address] [id number] [address] [place] [address], [place] [address] 15 Mar, 2014 [facility] [address] [id number] [address] [place] [address] 14 Mar, 2014 [facility] [address] [id number] [address] [place] [address] 14 Mar, 2014 [facility] [address] [id number] [address] [place] [address] 14 Mar, 2014 [facility] [address] [id number] [address] [place] [address], [place] [address] 14 Mar, 2014 [facility] [address] [id number] [address] [place] [address] 09 Mar, 2014 [facility] [address] [id number] [address] [place] [address] 09 Mar, 2014 [facility] [address] [id number] [address] [place] [address], [place] [address] 09 Mar, 2013 [facility] [address] [id number] [address] [place] [address], [place] [address] 09 Mar, 2013 [facility] [address] [id number] [address] [place] [address], [place] [address] 30 Feb, 2013 [facility] [address] [id number] [address] [place] [address], [place] [address] 30 Feb, 2013 [facility] [address] [id number] [address] [place] [address], [place] [address] 30 Feb, 2013 [facility] [address] [id number] [address] [place] [address], [place] [address] 30 Feb, 2013 [facility] [address] [id number] [address] [place] [address], [place] [address] Feb, 2013 [facility] [address] [id number] [address] [place] [address], [place] [address] Feb, 2013 [facility] [address] [id number] [address] [place] [address], [place] [address] Feb, 2013 [facility] [address] [id number] [address] [place] [address], [place] [address] Feb, 2013 [facility] [address] [id number] [address] [place] [address], [place] [address] Feb, 2013 [facility] [address] [id number] [address] [place] [address], [place] [address] Feb, 2013 [facility] [address] [id number] [address] [place] [address], [place] [address] Feb, 2013 [facility] [address] [id number] [address] [place] [address], [place] [address] Feb, 2013 [facility] [address] [id number] [address] [place] [address], [place] [address] Jan, [facility] [address] [id number] [address] [place] [address], [place] [address] Jan, [facility] [address] [id number] [facility] [place] [address] Jan, [facility] [address] [id number] [facility] [place] [address] Jan, [facility] [address] [id number] [facility] [place] [address] Jan, [facility] [address] [id number] [address] [place] [address], [place] [address] Jan, [facility] [address] [id number] [address] [place] [address], [place] [address] Jan, [facility] [address] [id number] [address] [place] [address], [place] [address] Jan, [facility] [address] [id number] [address] [place] [address], [place] [address] Jan, [facility] [address] [id number] [address] [place] [address], [place] [address] Jan, [facility] [address] [id number] [address] [place] [address], [place] [address] Jan, [facility] [address] [id number] [address] [place] [address], [place] [address] Jan, [facility] [address] [id number] [address] [place] [address], [place] [address] Jan, [facility] [address] [id number] [address] [place] [address], [place] [address] Dec, [facility] [address] [id number] [address] [place] [address], [place] [address] Dec, [facility] [address] [id number] [address] [place] [address], [place] [address] Dec, [facility] [address] [id number] [address] [place] [address], [place] [address] Dec, [facility] [address] [id number] [address] [place] [address], [place] [address] Dec, [facility] [address] [id number] [address] [place] [address], [place] [address] Dec, [facility] [address] [id number] [address] [place] [address], [place] [address] Dec, [facility] [address] [id number] [address] [place] [address], [place] [address] Dec, [facility] [address] [id number] [address] [place] [address], [place] [address] Dec, [facility] [address] [id number] [address] [place] [address], [place] [address] Dec, [facility] [address] [id number] [address] [place] [address], [place] [address] Dec, [facility] [address] [id number] [address] [place] [address], [place] [address] Dec, [facility] [address] [id number] [address] [place] [address], [place] [address] Dec, [facility] [address] [id number] [address] [place] [address], [place] [address] Dec, [facility] [address] [id number] [address] [place] [address], [place] [address] Dec, [facility] [address] [id number] [address] [place] [address], [place] [address] Dec, [facility] [address] [id number] [address] [place] [address], [place] [address] Dec, [facility] [address] [id number] [address] [place] [address], [place] [address] Dec, [facility] [address] [id number] [address] [place] [address], [place] [address] Nov, [facility] [address] [id number] [address] [place] [address], [place] [address] Nov, [facility] [address] [id number] [facility] [place] [address] 24 Nov, 2013 [facility] [address] [id number] [facility] [place] [address] Nov, [facility] [address] [id number] [facility] [place] [address] 16 Nov, 2013 [facility] [address] [id number] [address] [place] [address], [place] [address] Nov, [facility] [address] [id number] [address] [place] [address], [place] [address] Nov, [facility] [address] [id number] [address] [place] [address], [place] [address] Nov, [facility] [address] [id number] [address] [place] [address], [place] [address] Nov, [facility] [address] [id number] [address] [place] [address], [place] [address] Nov, [facility] [address] [id number] [address] [place] [address], [place] [address] Nov, [facility] [address] [id number] [address] [place] [address], [place] [address] Nov, [facility] [address] [id number] [address] [place] [address], [place] [address] Nov, [facility] [address] [id number] [address] [place] [address], [place] [address] Nov, [facility] [address] [id number] [address] [place] [address], [place] [address] Nov, [facility] [address] [id number] [address] [place] [address], [place] [address] Nov, [facility] [address] [id number] [address] [place] [address], [place] [address] Nov, [facility] [address] [id number] [address] [place] [address], [place] [address] Nov, [facility] [address] [id number] [address] [place] [address], [place] [address] Nov, [facility] [address] [id number] [address] [place] [address], [place] [address] Nov, [facility] [address] [id number] [address] [place] [address], [place] [address] October, [facility] [address] [id number] [address] [place] [address], [place] [address] October, [facility] [address] [id number] [address] [place] [address], [place] [address] October, [facility] [address] [id number] [address] [place] [address], [place] [address] October, [facility] [address] [id number] [address] [place] [address], [place] [address] Sep, [facility] [address] [id number] [address] [place] [address], [place] [address] Sep, [facility] [address] [id number] [address] [place] [address], [place] [address] Sep, [facility] [address] [id number] [address] [place] [address], [place] [address] Sep, [facility] [address] [id number] [address] [place] [address], [place] [address] Sep, [facility] [address] [id number] [address] [place] [address], [place] [address] Sep, [facility] [address] [id number] [address] [place] [address], [place] [address] Sep, [facility] [address] [id number] [address] [place] [address], [place] [address] Sep, [facility] [address] [id number] [address] [place] [address], [place] [address] Sep, [facility] [address] [id number] [address] [place] [address], [place] [address] Aug, [facility] [address] [id number] [address] [place] [address], [place] [address] Aug, [facility] [address] [id number] [address] [place] [address], [place] [address] Aug, [facility] [address] [id number] [address] [place] [address], [place] [address] Aug, [facility] [address] [id number] [address] [place] [address], [place] [address] Aug, [facility] [address] [id number] [address] [place] [address], [place] [address] Aug, [facility] [address] [id number] [address] [place] [address], [place] [address] Aug, [facility] [address] [id number] [address] [place] [address], [place] [address] Aug, [facility] [address] [id number] [address] [place] [address], [place] [address] Jul, [facility] [address] [id number] [address] [place] [address], [place] [address] Jul, [facility] [address] [id number] [address] [place] [address], [place] [address] Jun, [facility] [address] [id number] [address] [place] [address], [place] [address] Jun, [facility] [address] [id number] [address] [place] [address], [place] [address] Jun, [facility] [address] [id number] [address] [place] [address], [place] [address] Jun, [facility] [address] [id number] [address] [place] [address], [place] [address] Jun, [facility] [address] [id number] [address] [place] [address], [place] [address] Jun, [facility] [address] [id number] [address] [place] [address], [place] [address] Jun, [facility] [address] [id number] [address] [place] [address], [place] [address] Jun, [facility] [address] [id number] [address] [place] [address], [place] [address] Jun, [facility] [address] [id number] [address] [place] [address], [place] [address] Jun, [facility] [address] [id number] [address] [place] [address], [place] [address] Jun, [facility] [address] [id number] [address] [place] [address], [place] [address] Jun, [facility] [address] [id number] [address] [place] [address], [place] [address] May, [facility] [address] [id number] [address] [place] [address], [place] [address] May, [facility] [address] [id number] [address] [place] [address], [place] [address] May, [facility] [address] [id number] [address] [place] [address], [place] [address] May, [facility] [address] [id number] [address] [place] [address], [place] [address] May, [facility] [address] [id number] [address] [place] [address], [place] [address] May, [facility] [address] [id number] [address] [place] [address], [place] [address] May, [facility] [address] [id number] [address] [place] [address], [place] [address] May, [facility] [address] [id number] [address] [place] [address], [place] [address] May, [facility] [address] [id number] [address] [place] [address], [place] [address] May, [facility] [address] [id number] [address] [place] [address], [place] [address] May, [facility] [address] [id number] [address] [place] [address], [place] [address] May, [facility] [address] [id number] [address] [place] [address], [place] [address] May, [facility] [address] [id number] [address] [place] [address], [place] [address] Apr, [facility] [address] [id number] [address] [place] [address], [place] [address] Apr, [facility] [address] [id number] [address] [place] [address], [place] [address] Mar, [facility] [address] [id number] [address] [place] [address], [place] [address] Mar, [facility] [address] [id number] [address] [place] [address], [place] [address] 24 Feb, 2013 [facility] [address] [id number] [address] [place] [address], [place] [address] Feb, [facility] [address] [id number] [address] [place] [address], [place] [address] Feb, [facility] [address] [id number] [address] [place] [address] Feb, [facility] [address] [id number] [address] [place] [address] Jan, [facility] [address] [id number] [address] [place] [address], [place] [address] Jan, [facility] [address] [id number] [address] [place] [address], [place] [address] Jan, [facility] [address] [id number] [address] [place] [address], [place] [address] Jan, [facility] [address] [id number] [address] [place] [address], [place] [address] Jan, [facility] [address] [id number] [address] [place] [address], [place] [address] Jan, [facility] [address] [id number] [address] [place] [address], [place] [address] Dec, [facility] [address] [id number] [address] [place] [address], [place] [address] Dec, [facility] [address] [id number] [address] [place] [address], [place] [address] Dec, [facility] [address] [id number] [address] [place] [address], [place] [address] Dec, [facility] [address] [id number] [address] [place] [address], [place] [address] Nov, [facility] [address] [id number] [address] [place] [address], [place] [address] October, [facility] [address] [id number] [address] [place] [address], [place] [address] October, [facility] [address] [id number] [address] [place] [address], [place] [address] October, [facility] [address] [id number] [address] [place] [address], [place] [address] Sep, [facility] [address] [id number] [address] [place] [address], [place] [address] Sep, [facility] [address] [id number] [address] [place] [address], [place] [address] Jun, [facility] [address] [id number] [address] [place] [address], [place] [address] Jun, [facility] [address] [id number] [address] [place] [address], [place] [address] Jun, [facility] [address] [id number] [address] [place] [address], [place] [address] Apr, [facility] [address] [id number] [address] [place] [address], [place] [address] Apr, [facility] [address] [id number] [address] [place] [address], [place] [address] Apr, [facility] [address] [id number] [address] [place] [address], [place] [address] Apr, [facility] [address] [id number] [address] [place] [address], [place] [address] Mar, [facility] [address] [id number] [address] [place] [address], [place] [address] Mar, [facility] [address] [id number] [address] [place] [address], [place] [address] Mar, [facility] [address] [id number] [address] [place] [address], [place] [address] Mar, [facility] [address] [id number] [address] [place] [address], [place] [address] Feb, [facility] [address] [id number] [address] [place] [address], [place] [address] Feb, [facility] [address] [id number] [address] [place] [address], [place] [address] Feb, [facility] [address] [id number] [address] [place] [address], [place] [address] Jan, [facility] [address] [id number] [address] [place] [address], [place] [address] Jan, [facility] [address] [id number] [address] [place] [address], [place] [address] Jan, [facility] [address] [id number] [address] [place] [address], [place] [address] Jan, [facility] [address] [id number] [address] [place] [address], [place] [address] Dec, [facility] [address] [id number] [address] [place] [address], [place] [address] Dec, [facility] [address] [id number] [address] [place] [address], [place] [address] Nov, [facility] [address] [id number] [address] [place] [address], [place] [address] Nov, [facility] [address] [id number] [address] [place] [address], [place] [address] October, [facility] [address] [id number] [address] [place] [address], [place] [address] October, [facility] [address] [id number] [address] [place] [address], [place] [address] October, [facility] [address] [id number] [address] [place] [address], [place] [address] Sep, [facility] [address] [id number] [address] [place] [address], [place] [address] Sep, [facility] [address] [id number] [address] [place] [address], [place] [address] Sep, [facility] [address] [id number] [address] [place] [address], [place] [address] Aug, [facility] [address] [id number] [address] [place] [address], [place] [address] Aug, [facility] [address] [id number] [address] [place] [address], [place] [address] Aug, [facility] [address] [id number] [address] [place] [address], [place] [address] Aug, [facility] [address] [id number] [address] [place] [address], [place] [address] Aug, [facility] [address] [id number] [address] [place] [address], [place] [address] Jul, [facility] [address] [id number] [address] [place] [address], [place] [address] 16 Jul, 2011 [facility] [address] [id number] [address] [place] [address], [place] [address] 13 Jul, 2011 [facility] [address] [id number] [address] [place] [address], [place] [address] 09 Jul, 2011 [facility] [address] [id number] [address] [place] [address], [place] [address] 07 Jul, 2011 [facility] [address] [id number] [address] [place] [address], [place] [address] Jul, 2011 [facility] [address] [id number] [address] [place] [address], [place] [address] Jul, [facility] [address] [id number] [address] [place] [address], [place] [address] Jul, [facility] [address] [id number] [address] [place] [address], [place] [address] Jun, [facility] [address] [id number] [address] [place] [address], [place] [address] Jun, [facility] [address] [id number] [address] [place] [address], [place] [address] May, [facility] [address] [id number] [address] [place] [address], [place] [address] May, [facility] [address] [id number] [address] [place] [address], [place] [address] May, [facility] [address] [id number] [address] [place] [address], [place] [address] May, [facility] [address] [id number] [address] [place] [address], [place] [address] Apr, [facility] [address] [id number] [address] [place] [address], [place] [address] Apr, [facility] [address] [id number] [address] [place] [address], [place] [address] Apr, [facility] [address] [id number] [address] [place] [address], [place] [address] 18 Mar, 2011 [facility] [address] [id number] [address] [place] [address], [place] [address] 18 Mar, 2011 [facility] [address] [id number] [address] [place] [address], [place] [address] 18 Mar, 2011 [facility] [address] [id number] [address] [place] [address], [place] [address] 2011 [facility] [address] [id number] [address] [place] [address], [place] [address] Dec, [facility] [address] [id number] [address] [place] [address], [place] [address] October, [facility] [address] [id number] [address] [place] [address], [place] [address] 28 May, 2010 [facility] [address] [id number] [address] [place] [address], [place] [address] 13 May, 2010 [facility] [address] [id number] [address] [place] [address], [place] [address] 13 May, 2010 [facility] [address] [id number] [address] [place] [address], [place] [address] 06 May, 2010 [facility] [address] [id number] [address] [place] [address], [place] [address] Mar, [facility] [address] [id number] [address] [place] [address], [place] [address] Mar, [facility] [address] [id number] [address] [place] [address], [place] [address] 31 May, 2009 [facility] [address] [id number] [address] [place] [address], [place] [address] 30 May, 2009 [facility] [address] [id number] [address] [place] [address], [place] [address] 08 May, 2009 [facility] [address] [id number] [address] [place] [address], [place] [address] 08 May, 2009 [facility] [address] [id number] [address] [address] Apr, [facility] [address] [facility] [id number] [address] [address] Apr, [facility] [address] [facility] [id number] [address] [address] October, IMMUNIZATIONS No Known Immunizations SOCIAL HISTORY [...]
--- OUTSIDE RECORDS SUMMARY | 2020-01-13 11:45 | XMS REPORT ---
Author Author Monique RAHMAN [facility] Address [address] [place] [address] Care Team Providers Care Flavor Maker Name Role Phone RASHEED RAHMAN Unavailable PROBLEMS Type Condition ICD9-CM Code DDR83-NH Code Onset Dates Condition S tatus SNOMED Code Problem History of illicit drug use Z87.898 Ac tive 310341838 Problem Snoring R06.83 Active 35724777 Problem Impaired circulation I99.9 Active 12457791 Problem MRSA (methicillin resistant staph aureus) culture positive Z22.322 Active 608762399 Problem Panic disorder without agoraphobia F41.0 Active 14200066 Problem Dysthymic disorder F34.1 Active 7 5100512 Problem Mood disorder F39 Active 945240 05 Problem Arthritis M19.90 Active 3901982 Problem Mild chronic obstructive pulmonary disease J44.9 Active 547952722 Problem Mild persistent asthma without complication J45.30 Active 516601061 Problem Essential hypertension I10 Active 93181841 Problem On home oxygen therapy Z99.81 Active 974676813472 Problem Social phobia F40.10 Active 543304 02 Problem Neuropathy G62.9 Active 986209770 Problem 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 Active 859955891 Problem Major depressive disorder, recurrent episode, moderate F33.1 Active 227291518 Problem Psychotic disorder F29 Active 6 8883511 Problem Hypertension, benign I10 Active 95453869 Problem Onychomycosis B35.1 Active 323063 008 Problem Body mass index (BMI) 40.0-44.9, adult Z68.41 Active 655904942 Problem Varicose veins of both lower extremities I83.93 Active 18858617 Problem Sciatica, left side M54.32 Active 76570299 Problem Agoraphobia F40.00 Active 24916180 Problem Fatigue R53.83 Active 66373049 Problem Major depressive disorder in full remission F32.5 Active 87084439 Problem Slow transit constipation K59.01 Acti ve 64159480 Problem Chronic obstructive pulmonary disease, unspecified COPD ty pe J44.9 Active 24314576 Problem Unspecified psychosis not du e to a substance or known physiological condition F29 Active 206584400 ALLERGIES No Information ENCOUNTERS Encounter Location Date Diagnosis [place] [address] [address] Nov, [place] [address] [address] Sep, Abdominal pain, right upper quadrant R10.11 [place] [address] [address] Sep, Major depressive disorder, r ecurrent episode, moderate F33.1 ; Panic disorder without agoraphobia F41.0 and Morbid obesity E66.01 [place] [address] [address] Aug, Bronchitis J40 [place] [address] [address] Aug, Sciatica, left side M54.32 a nd Morbid obesity E66.01 [place] [address] [address] Aug, [place] [address] [address] Aug, Sciatica, left side M54.32 [place] [address] [address] Aug, Neuropathy G62.9 ; Onychomyc osis B35.1 ; Callus of foot L84 and Skin fissures R23.4 [place] [address] [place] [id number] [place] [address] Jul, [place] [address] [address] Jul, Morbid obesity E66.01 [place] [address] [place] [id number] [place] [address] Jul, Unspecified psychosis not du e to a substance or known physiological condition F29 ; Chronic obstructive pulmonary disease, unspecified COPD type J44.9 and Body mass index (BMI) 40.0-44.9, adult Z68.41 [place] [address] [address] Jun, [place] [address] [address] Jun, Morbid obesity E66.01 [place] [address] [address] May, Morbid obesity E66.01 [place] [address] [address] May, Encounter for immunization Z 23 [place] [address] [address] May, Major depressive disorder, r ecurrent episode, moderate F33.1 ; Panic disorder without agoraphobia F41.0 and Morbid obesity E66.01 [place] [address] [address] May, Major depressive disorder in full remission F32.5 and Panic disorder without agoraphobia F41.0 [place] [address] [place] [id number] [place] [address] Apr, Morbid obesity E66.01 [place] [address] [address] Apr, Slow transit constipation K5 9.01 and Cellulitis of left lower extremity L03.116 [place] [address] [place] [id number] [place] [address] Apr, Morbid obesity E66.01 [place] [address] [address] Apr, [place] [address] [address] Apr, Major depressive disorder, r ecurrent episode, moderate F33.1 and Panic disorder without agoraphobia F41.0 [place] [address] [address] Mar, Viral upper respiratory trac t infection J06.9 [place] [address] [address] Mar, Bronchitis J40 and Encounter for immunization Z23 [address] [address] Mar, Morbid obesity E66.01 [place] [address] [address] Feb, Major depressive disorder, r ecurrent episode, moderate F33.1 and Panic disorder without agoraphobia F41.0 [place] [address] [address] Feb, Morbid obesity E66.01 [place] [address] [address] Feb, Onychomycosis B35.1 ; 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 and Xerosis of skin L85.3 [place] [address] [address] Feb, Major depressive disorder, r ecurrent episode, moderate F33.1 ; Panic disorder without agoraphobia F41.0 and Morbid obesity E66.01 [place] [address] [address] Jan, Major depressive disorder in full remission F32.5 and Panic disorder without agoraphobia F41.0 [place] [address] [address] Jan, Pneumonia of both lower lobe s due to infectious organism J18.1 and Morbid obesity E66.01 [facility] [address] [facility] [id number] [address] [place] [address] Jan, [place] [address] [facility] [id number] [address] [place] [address] Jan, Major depressive disorder in full remission F32.5 and Panic disorder without agoraphobia F41.0 [place] [address] [facility] [id number] [address] [place] [address] Jan, [place] [address] [facility] [id number] [address] [place] [address] Jan, Major depressive disorder, r ecurrent episode, moderate F33.1 ; Panic disorder without agoraphobia F41.0 and Morbid obesity E66.01 [place] [address] [place] [id number] [place] [address] Dec, Bilious vomiting with nausea R11.14 ; Coughing R05 and Choking, subsequent encounter T17.308D [place] [address] [place] [id number] [place] [address] Dec, Morbid obesity E66.01 [place] [address] [facility] [id number] [address] [place] [address] Dec, Major depressive disorder, r ecurrent episode, moderate F33.1 and Panic disorder without agoraphobia F41.0 [place] [address] [facility] [id number] [address] [place] [address] Dec, [place] [address] [facility] [id number] [address] [place] [address] Dec, Major depressive disorder, r ecurrent episode, moderate F33.1 [place] [address] [facility] [id number] [address] [place] [address] Nov, Major depressive disorder, r ecurrent episode, moderate F33.1 ; Panic disorder without agoraphobia F41.0 and Morbid obesity E66.01 [place] [address] [address] 20 Nov, 2018 Morbid obesity E66.01 [place] [address] [address] Nov, Major depressive disorder, r ecurrent episode, moderate F33.1 and Panic disorder without agoraphobia F41.0 [facility] [place] [address] [address] Nov, Allergic reaction, initial e ncounter T78.40XA and Morbid obesity E66.01 [place] [address] [address] Nov, [place] [address] [address] Nov, Morbid obesity E66.01 ; Swal lowing problem R13.10 and Hypertension, benign I10 [facility] [place] [address] [address] 07 Nov, 2018 Morbid obesity E66.01 ; COPD exacerbation J44.1 and Non- recurrent acute suppurative otitis media of left ear without spontaneous rupture of tympanic membrane H66.002 [place] [address] [address] 07 Nov, 2018 Onychomycosis B35.1 ; Neurop athy G62.9 and Fissure in skin of foot R23.4 [place] [address] [address] October, Major depressive disorder, r ecurrent episode, moderate F33.1 ; Panic disorder without agoraphobia F41.0 and Morbid obesity E66.01 [facility] [place] [address] [address] October, Viral upper respiratory trac t infection J06.9 [place] [address] [address] October, [facility] [address] [facility] [id number] [address] [place] [address] October, Major depressive disorder, r ecurrent episode, moderate F33.1 and Panic disorder without agoraphobia F41.0 [facility] [address] [id number] [address] [place] [id number] October, [facility] [address] [facility] [id number] [address] [place] [address] October, [facility] [address] [id number] [address] [place] [id number] October, [facility] [address] [facility] [id number] [address] [place] [id number] October, [facility] [address] [facility] [id number] [address] [place] [id number] October, [facility] [address] [facility] [id number] [address] [place] [address] October, [facility] [address] [facility] [id number] [address] [place] [address] October, Major depressive disorder, r ecurrent episode, moderate F33.1 and Panic disorder without agoraphobia F41.0 [facility] [address] [facility] [id number] [address] [place] [address] Sep, Morbid obesity E66.01 and Vane mbar neuritis M54.16 [facility] [address] [facility] [id number] [address] [place] [address] Sep, Panic disorder without agora phobia F41.0 and Major depressive disorder, recurrent episode, moderate F33.1 [facility] [address] [facility] [id number] [address] [place] [address] Sep, Gastroenteritis K52.9 ; Low back pain M54.5 ; Other chronic pain G89.29 and Morbid obesity E66.01 [facility] [address] [facility] [id number] [address] [place] [address] Sep, Major depressive disorder, r ecurrent episode, moderate F33.1 ; Panic disorder without agoraphobia F41.0 and Social phobia F40.10 [place] [address] [place] [address] Sep, Panic disorder without agora phobia F41.0 [place] [address] [place] [id number] [place] [address] Sep, Panic disorder without agora phobia F41.0 [place] [address] [address] Aug, Panic disorder without agora phobia F41.0 ; Major depressive disorder, recurrent episode, moderate F33.1 ; Social phobia F40.10 ; Psychotic disorder F29 ; Tardive dyskinesia G24.01 and Morbid obesity E66.01 [place] [address] [address] Aug, Dysthymic disorder F34.1 and Psychotic disorder F29 [place] [address] [address] Aug, 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 [place] [address] [place] [id number] [place] [address] Aug, Dysthymic disorder F34.1 and Psychotic disorder F29 [place] [address] [address] Aug, Neuropathy G62.9 ; Onychomyc osis B35.1 and Xerosis of skin L85.3 [place] [address] [place] [id number] [place] [address] Jul, [place] [address] [place] [id number] [place] [address] Jul, Mood disorder F39 ; Wheezing R06.2 ; Choking, initial encounter T17.308A and Coughing R05 [facility] [address] [address] Jul, Low back pain M54.5 [facility] [address] [place] [id number] [place] [address] Jun, Flu-like symptoms R68.89 ; B SD 45.0-49.9, adult Z68.42 ; COPD exacerbation J44.1 and Acute bronchitis J20.9 [place] [address] [address] Jun, [place] [address] [address] May, [place] [address] [address] May, Onychomycosis B35.1 and 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.610 [place] [address] [address] May, Low back pain M54.5 and Abdoulaye a leg R60.0 [place] [address] [address] May, BMI 45.0-49.9, adult Z68.42 ; Well woman exam with routine gynecological exam Z01.419 and Breast cancer screening Z12.31 [place] [address] [address] Apr, Arthritis M19.90 [place] [address] [address] Apr, Arthritis M19.90 and Otalgia of both ears H92.03 [place] [address] [place] [id number] [place] [address] Feb, [place] [address] [address] Feb, Low back pain M54.5 ; Other chronic pain G89.29 ; Exertional asthma J45.990 and Encounter for immunization Z23 [facility] [address] [place] [address] Feb, Skin fissures R23.4 ; Neurop athy G62.9 and Onychomycosis B35.1 [facility] [address] [place] [id number] [place] [address] 05 Feb, 2018 Dysthymic disorder F34.1 [place] [address] [place] [address] 04 Feb, 2018 [place] [address] [address] Jan, [place] [address] [address] Jan, Abrasion of right elbow, ini tial encounter S50.311A ; Abrasion, right knee, initial encounter S80.211A and Sprain of other ligament of right ankle, initial encounter S93.491A [place] [address] [address] Jan, [facility] [address] [place] [id number] [place] [address] Jan, Injury of left ankle, initia l encounter S99.912A ; Fall down stairs, initial encounter W10.8XXA and BMI 45.0-49.9, adult Z68.42 [place] [address] [place] [address] Jan, COPD exacerbation J44.1 [place] [address] [place] [id number] [place] [address] Jan, 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 [place] [address] [place] [id number] [place] [address] 08 Jan, 2018 Bronchitis J40 and Acute sup purative otitis media of left ear without spontaneous rupture of tympanic membrane, recurrence not specified H66.002 [place] [address] [address] Jan, [place] [address] [place] [id number] [place] [address] Jan, Bronchitis J40 and BMI 40.0- 44.9, adult Z68.41 [place] [address] [address] Jan, [place] [address] [address] Dec, Gastric pain R10.9 [place] [address] [place] [id number] [place] [address] Dec, [place] [address] [address] Dec, History of illicit drug use Z87.898 ; Neuropathy G62.9 ; COPD (chronic obstructive pulmonary disease) with chronic bronchitis J44.9 and Acute pain of right knee M25.561 [place] [address] [address] Nov, [place] [address] [address] Nov, Onychomycosis B35.1 and Cont usion of left foot, subsequent encounter S90.32XD [place] [address] [place] [id number] [place] [address] Nov, COPD exacerbation J44.1 [place] [address] [address] Sep, [place] [address] [place] [id number] [place] [address] Sep, Dysthymic disorder F34.1 ; T obacco abuse Z72.0 ; Pain in right knee M25.561 ; Pain in left knee M25.562 ; Other chronic pain G89.29 and BMI 40.0- 44.9, adult Z68.41 [place] [address] [address] Aug, Major depressive disorder, r ecurrent episode, moderate F33.1 and Social phobia F40.[address] [address] 14 Aug, 2017 Dysthymic disorder F34.1 ; N on-pressure chronic ulcer of left thigh, unspecified ulcer stage L97.129 ; Tobacco abuse Z72.0 ; Mild chronic obstructive pulmonary disease J44.9 and Forgetfulness R68.[address] [address] 09 Aug, 2017 Onychomycosis B35.1 ; Fissur e in skin of foot R23.4 and Foot callus L84 [facility] [address] [address] Jul, Right medial knee pain M25.5 61 ; Upper respiratory tract infection, unspecified type J06.9 and BMI 40.0-44.9, adult Z68.41 [facility] [address] [address] 08 Jul, 2017 Nausea and vomiting, intract ability of vomiting not specified, unspecified vomiting type R11.2 ; Left ear pain H92.02 and Gastric pain R10.9 [place] [address] [address] Apr, Encounter for immunization Z [address] [address] Apr, Onychomycosis B35.1 ; Xerosi s of skin L85.3 ; Neuropathy G62.9 and 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 [place] [address] [address] Jan, Onychomycosis B35.1 and Neur opathy G62.9 [facility] [address] [facility] [id number] [address] [place] [address] Dec, [facility] [address] [id number] [address] [place] [address] Dec, [facility] [address] [facility] [id number] [address] [place] [address] Nov, [facility] [address] [facility] [id number] [address] [place] [address] Aug, [facility] [address] [facility] [id number] [address] [place] [address] Aug, [facility] [address] [facility] [id number] [address] [place] [address] Jul, [facility] [address] [facility] [id number] [address] [place] [address] Jul, [facility] [address] [facility] [id number] [address] [place] [address] Jul, Decubitus ulcer of left thig h, stage 2 L89.892 [facility] [address] [facility] [id number] [address] [place] [address] 17 Jul, 2016 Decubitus ulcer of left thig h, stage 2 L89.892 [facility] [address] [facility] [id number] [address] [place] [id number] 17 Jul, 2016 [facility] [address] [facility] [id number] [address] [place] [id number] 15 Jul, 2016 Decubitus ulcer of left thig h, stage 2 L89.892 [facility] [address] [facility] [id number] [address] [place] [address] 14 Jul, 2016 [facility] [address] [facility] [id number] [address] [place] [address] 13 Jul, 2016 Cellulitis of other specifie d site L03.818 ; Illicit drug use F19.90 and Decubitus ulcer of left thigh, stage 2 L89.892 [facility] [address] [facility] [id number] [address] [place] [address] Jul, [facility] [address] [facility] [id number] [address] [place] [address] Jul, Cellulitis of right breast N 61.0 [facility] [address] [facility] [id number] [address] [place] [id number] Jun, [facility] [address] [facility] [id number] [address] [place] [phone] Jun, [facility] [address] [place] [id number] [address] [place] [address] Jun, Wheezing R06.2 and Arthralgi a, unspecified joint M25.50 [facility] [address] [place] [id number] [address] [place] [address] May, [facility] [address] [place] [id number] [address] [place] [address] May, [facility] [address] [place] [id number] [address] [place] [address] May, [facility] [address] [place] [id number] [address] [place] [address] May, Shortness of breath R06.02 [facility] [address] [facility] [id number] [address] [place] [id number] May, Onychomycosis B35.1 and Fiss ure in skin of foot R23.4 [facility] [address] [facility] [id number] [address] [place] [id number] Apr, [facility] [address] [facility] [id number] [address] [place] [id number] Apr, Dizziness R42 [facility] [address] [place] [id number] [address] [place] [id number] 14 Apr, 2016 Shortness of breath R06.02 ; Essential hypertension I10 ; Dizziness R42 and On home oxygen therapy Z99.81 [facility] [address] [id number] [address] [place] [id number] Apr, [facility] [address] [id number] [address] [place] [id number] 08 Apr, 2016 [facility] [address] [id number] [address] [place] [id number] Apr, [facility] [address] [id number] [address] [place] [id number] Apr, [facility] [address] [id number] [address] [place] [id number] Apr, [facility] [address] [id number] [address] [place] [id number] Apr, [facility] [address] [id number] [address] [place] [id number] Apr, [facility] [address] [id number] [address] [place] [address] [id number] Mar, Mild chronic obstructive pul monary disease J44.9 [facility] [address] [id number] [address] [place] [id number] Mar, [facility] [address] [id number] [address] [place] [id number] Mar, Epigastric pain R10.13 ; Low back pain M54.5 ; Other chronic pain G89.29 and Breast cancer screening Z12.39 [facility] [address] [id number] [address] [place] [id number] Mar, [facility] [address] [id number] [address] [place] [id number] Mar, [facility] [address] [id number] [address] [place] [id number] Feb, [facility] [address] [facility] [id number] [address] [place] [id number] 08 Feb, 2016 [place] [address] [address] [facility] [id number] [address] [place] [id number] Feb, Fissure in skin of foot R23. 4 and Onychomycosis B35.1 [place] [address] [place] [id number] [address] [place] [id number] Jan, Agoraphobia F40.00 [place] [address] [address] [facility] [id number] [address] [place] [id number] Dec, Agoraphobia F40.00 [place] [address] [place] [id number] [address] [place] [id number] Dec, Mild persistent asthma witho ut complication J45.30 ; Dysthymic disorder F34.1 and Upper respiratory tract infection, unspecified type J06.9 [place] [id number] [place] [address] Nov, Agoraphobia F40.00 [place] [address] [place] [id number] [address] [place] [id number] October, Agoraphobia F40.00 [place] [address] [place] [id number] [address] [place] [id number] Sep, Panic disorder without agora phobia F41.0 ; Agoraphobia F40.00 and Dysthymic disorder F34.1 [place] [address] [place] [id number] [address] [place] [id number] Sep, Panic attacks F41.0 [place] [address] [facility] [id number] [address] [place] [id number] Sep, [place] [address] [place] [id number] [address] [place] [id number] Sep, Panic disorder without agora phobia F41.0 ; Varicose veins of both lower extremities I83.93 and Fatigue R53.83 [place] [address] [place] [id number] [address] [place] [id number] 14 Sep, 2015 Fatigue R53.83 [place] [address] [id number] 05 Sep, 2015 [place] [address] [place] [id number] [address] [place] [address] Aug, [place] [address] [address] Aug, [place] [address] [address] Aug, Type 2 diabetes mellitus wit h diabetic neuropathic arthropathy E11.610 [place] [address] [address] Aug, Panic disorder without agora phobia F41.0 ; Agoraphobia F40.00 and Dysthymic disorder F34.1 [place] [address] [address] [place] [id number] [address] [place] [id number] Aug, Shortness of breath R06.02 ; Panic attacks F41.0 ; COPD (chronic obstructive pulmonary disease) J44.9 ; Tobacco abuse Z72.0 ; Family history of diabetes mellitus Z83.3 and Weight gain R63.5 [place] [address] [place] [id number] [address] [place] [id number] Aug, [place] [address] [place] [id number] [address] [place] [address] Jul, [place] [address] [place] [id number] [address] [place] [id number] Jun, Onychomycosis B35.1 ; Neurop athy G62.9 and Impaired circulation I99.9 [place] [address] [place] [id number] [address] [place] [id number] 09 Mar, 2015 Fissure in skin of foot R23. 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 [facility] [address] [facility] [id number] [address] [place] [id number] 18 Feb, 2015 Family history of coronary a rteriosclerosis V17.3 [facility] [address] [facility] [id number] [address] [place] [id number] 15 Feb, 2015 Allergic rhinitis due to darien agnieszka 477.0 ; Unspecified breast screening V76.10 ; Anxiety 300.00 and Family history of coronary arteriosclerosis V17.3 [facility] [address] [facility] [id number] [address] [place] [id number] Jan, [facility] [address] [facility] [id number] [address] [place] [id number] Dec, [facility] [address] [place] [id number] [address] [place] [id number] Dec, Onychomycosis 110.1 and Skin fissures 709.8 [facility] [address] [place] [id number] [address] [place] [id number] Sep, [facility] [address] [facility] [id number] [address] [place] [id number] Sep, [facility] [address] [place] [id number] [address] [place] [id number] Aug, [facility] [address] [facility] [id number] [address] [place] [id number] Aug, [facility] [address] [facility] [id number] [address] [place] [id number] Jul, [facility] [address] [facility] [id number] [address] [place] [id number] Jul, [facility] [address] [facility] [id number] [address] [place] [id number] Jun, [facility] [address] [facility] [id number] [address] [place] [id number] Jun, [facility] [address] [facility] [id number] [address] [place] [id number] Jun, [facility] [address] [id number] [address] [place] [address], [place] [address] Jun, [facility] [address] [id number] [address] [place] [address], [place] [address] Jun, [facility] [address] [id number] [address] [place] [address], [place] [address] May, [facility] [address] [id number] [address] [place] [address], [place] [address] May, [facility] [address] [id number] [address] [place] [address], [place] [address] May, [facility] [address] [id number] [address] [place] [address], [place] [address] May, [facility] [address] [id number] [address] [place] [address], [place] [address] May, [facility] [address] [id number] [address] [place] [address], [place] [address] May, [facility] [address] [id number] [address] [place] [address], [place] [address] May, [facility] [address] [id number] [address] [place] [address], [place] [address] May, [facility] [address] [id number] [address] [place] [address], [place] [address] Apr, [facility] [address] [id number] [address] [place] [address], [place] [address] Apr, [facility] [address] [id number] [address] [place] [address], [place] [address] Apr, [facility] [address] [id number] [address] [place] [address], [place] [address] Apr, [facility] [address] [id number] [address] [place] [address], [place] [address] Apr, [facility] [address] [id number] [address] [place] [address], [place] [address] Apr, [facility] [address] [id number] [address] [place] [address], [place] [address] Apr, [facility] [address] [id number] [address] [place] [address], [place] [address] Apr, [facility] [address] [id number] [address] [place] [address], [place] [address] Apr, [facility] [address] [id number] [address] [place] [address], [place] [address] Apr, [facility] [address] [id number] [address] [place] [address], [place] [address] Mar, [facility] [address] [id number] [address] [place] [address], [place] [address] Mar, [facility] [address] [id number] [address] [place] [address], [place] [address] Mar, [facility] [address] [id number] [address] [place] [address], [place] [address] Mar, [facility] [address] [id number] [address] [place] [address], [place] [address] Mar, [facility] [address] [id number] [address] [place] [address], [place] [address] Mar, [facility] [address] [id number] [address] [place] [address], [place] [address] Mar, [facility] [address] [id number] [address] [place] [address], [place] [address] Mar, [facility] [address] [id number] [address] [place] [address], [place] [address] Mar, [facility] [address] [id number] [address] [place] [address], [place] [address] Mar, [facility] [address] [id number] [address] [place] [address], [place] [address] Mar, [facility] [address] [id number] [address] [place] [address], [place] [address] Mar, 2013 [facility] [address] [id number] [address] [place] [address], [place] [address] 22 Mar, 2014 [facility] [address] [id number] [address] [place] [address], [place] [address] 22 Mar, 2014 [facility] [address] [id number] [address] [place] [address], [place] [address] 22 Mar, 2014 [facility] [address] [id number] [address] [place] [address], [place] [address] 20 Mar, 2014 [facility] [address] [id number] [address] [place] [address], [place] [address] 20 Mar, 2014 [facility] [address] [id number] [address] [place] [address], [place] [address] 16 Mar, 2014 [facility] [address] [id number] [address] [place] [address], [place] [address] 16 Mar, 2014 [facility] [address] [id number] [address] [place] [address], [place] [address] 15 Mar, 2014 [facility] [address] [id number] [address] [place] [id number] 14 Mar, 2014 [facility] [address] [id number] [address] [place] [id number] 14 Mar, 2014 [facility] [address] [id number] [address] [place] [id number] 14 Mar, 2014 [facility] [address] [id number] [address] [place] [address], [place] [address] 14 Mar, 2014 [facility] [address] [id number] [address] [place] [id number] 09 Mar, 2014 [facility] [address] [id number] [address] [place] [id number] 09 Mar, 2014 [facility] [address] [id number] [address] [place] [address], [place] [address] 09 Mar, 2013 [facility] [address] [id number] [address] [place] [address], [place] [address] 09 Mar, 2013 [facility] [address] [id number] [address] [place] [address], [place] [address] 30 Feb, 2013 [facility] [address] [id number] [address] [place] [address], [place] [address] 30 Feb, 2013 [facility] [address] [id number] [address] [place] [address], [place] [address] 30 Feb, 2013 [facility] [address] [id number] [address] [place] [address], [place] [address] 30 Feb, 2013 [facility] [address] [id number] [address] [place] [address], [place] [address] Feb, 2013 [facility] [address] [id number] [address] [place] [address], [place] [address] Feb, 2013 [facility] [address] [id number] [address] [place] [address], [place] [address] Feb, 2013 [facility] [address] [id number] [address] [place] [address], [place] [address] Feb, 2013 [facility] [address] [id number] [address] [place] [address], [place] [address] Feb, 2013 [facility] [address] [id number] [address] [place] [address], [place] [address] Feb, 2013 [facility] [address] [id number] [address] [place] [address], [place] [address] Feb, 2013 [facility] [address] [id number] [address] [place] [address], [place] [address] Feb, 2013 [facility] [address] [id number] [address] [place] [address], [place] [address] Jan, [facility] [address] [id number] [address] [place] [address], [place] [address] Jan, [facility] [address] [id number] [facility] [place] [address] Jan, [facility] [address] [id number] [facility] [place] [address] Jan, [facility] [address] [id number] [facility] [place] [address] Jan, [facility] [address] [id number] [address] [place] [address], [place] [address] Jan, [facility] [address] [id number] [address] [place] [address], [place] [address] Jan, [facility] [address] [id number] [address] [place] [address], [place] [address] Jan, [facility] [address] [id number] [address] [place] [address], [place] [address] Jan, [facility] [address] [id number] [address] [place] [address], [place] [address] Jan, [facility] [address] [id number] [address] [place] [address], [place] [address] Jan, [facility] [address] [id number] [address] [place] [address], [place] [address] Jan, [facility] [address] [id number] [address] [place] [address], [place] [address] Jan, [facility] [address] [id number] [address] [place] [address], [place] [address] Dec, [facility] [address] [id number] [address] [place] [address], [place] [address] Dec, [facility] [address] [id number] [address] [place] [address], [place] [address] Dec, [facility] [address] [id number] [address] [place] [address], [place] [address] Dec, [facility] [address] [id number] [address] [place] [address], [place] [address] Dec, [facility] [address] [id number] [address] [place] [address], [place] [address] Dec, [facility] [address] [id number] [address] [place] [address], [place] [address] Dec, [facility] [address] [id number] [address] [place] [address], [place] [address] Dec, [facility] [address] [id number] [address] [place] [address], [place] [address] Dec, [facility] [address] [id number] [address] [place] [address], [place] [address] Dec, [facility] [address] [id number] [address] [place] [address], [place] [address] Dec, [facility] [address] [id number] [address] [place] [address], [place] [address] Dec, [facility] [address] [id number] [address] [place] [address], [place] [address] Dec, [facility] [address] [id number] [address] [place] [address], [place] [address] Dec, [facility] [address] [id number] [address] [place] [address], [place] [address] Dec, [facility] [address] [id number] [address] [place] [address], [place] [address] Dec, [facility] [address] [id number] [address] [place] [address], [place] [address] Dec, [facility] [address] [id number] [address] [place] [address], [place] [address] Dec, [facility] [address] [id number] [address] [place] [address], [place] [address] Nov, [facility] [address] [id number] [address] [place] [address], [place] [address] Nov, [facility] [address] [id number] [facility] [place] [address] 24 Nov, 2013 [facility] [address] [id number] [facility] [place] [address] Nov, [facility] [address] [id number] [facility] [place] [address] 16 Nov, 2013 [facility] [address] [id number] [address] [place] [address], [place] [address] Nov, [facility] [address] [id number] [address] [place] [address], [place] [address] Nov, [facility] [address] [id number] [address] [place] [address], [place] [address] Nov, [facility] [address] [id number] [address] [place] [address], [place] [address] Nov, [facility] [address] [id number] [address] [place] [address], [place] [address] Nov, [facility] [address] [id number] [address] [place] [address], [place] [address] Nov, [facility] [address] [id number] [address] [place] [address], [place] [address] Nov, [facility] [address] [id number] [address] [place] [address], [place] [address] Nov, [facility] [address] [id number] [address] [place] [address], [place] [address] Nov, [facility] [address] [id number] [address] [place] [address], [place] [address] Nov, [facility] [address] [id number] [address] [place] [address], [place] [address] Nov, [facility] [address] [id number] [address] [place] [address], [place] [address] Nov, [facility] [address] [id number] [address] [place] [address], [place] [address] Nov, [facility] [address] [id number] [address] [place] [address], [place] [address] Nov, [facility] [address] [id number] [address] [place] [address], [place] [address] Nov, [facility] [address] [id number] [address] [place] [address], [place] [address] October, [facility] [address] [id number] [address] [place] [address], [place] [address] October, [facility] [address] [id number] [address] [place] [address], [place] [address] October, [facility] [address] [id number] [address] [place] [address], [place] [address] October, [facility] [address] [id number] [address] [place] [address], [place] [address] Sep, [facility] [address] [id number] [address] [place] [address], [place] [address] Sep, [facility] [address] [id number] [address] [place] [address], [place] [address] Sep, [facility] [address] [id number] [address] [place] [address], [place] [address] Sep, [facility] [address] [id number] [address] [place] [address], [place] [address] Sep, [facility] [address] [id number] [address] [place] [address], [place] [address] Sep, [facility] [address] [id number] [address] [place] [address], [place] [address] Sep, [facility] [address] [id number] [address] [place] [address], [place] [address] Sep, [facility] [address] [id number] [address] [place] [address], [place] [address] Sep, [facility] [address] [id number] [address] [place] [address], [place] [address] Aug, [facility] [address] [id number] [address] [place] [address], [place] [address] Aug, [facility] [address] [id number] [address] [place] [address], [place] [address] Aug, [facility] [address] [id number] [address] [place] [address], [place] [address] Aug, [facility] [address] [id number] [address] [place] [address], [place] [address] Aug, [facility] [address] [id number] [address] [place] [address], [place] [address] Aug, [facility] [address] [id number] [address] [place] [address], [place] [address] Aug, [facility] [address] [id number] [address] [place] [address], [place] [address] Aug, [facility] [address] [id number] [address] [place] [address], [place] [address] Jul, [facility] [address] [id number] [address] [place] [address], [place] [address] Jul, [facility] [address] [id number] [address] [place] [address], [place] [address] Jun, [facility] [address] [id number] [address] [place] [address], [place] [address] Jun, [facility] [address] [id number] [address] [place] [address], [place] [address] Jun, [facility] [address] [id number] [address] [place] [address], [place] [address] Jun, [facility] [address] [id number] [address] [place] [address], [place] [address] Jun, [facility] [address] [id number] [address] [place] [address], [place] [address] Jun, [facility] [address] [id number] [address] [place] [address], [place] [address] Jun, [facility] [address] [id number] [address] [place] [address], [place] [address] Jun, [facility] [address] [id number] [address] [place] [address], [place] [address] Jun, [facility] [address] [id number] [address] [place] [address], [place] [address] Jun, [facility] [address] [id number] [address] [place] [address], [place] [address] Jun, [facility] [address] [id number] [address] [place] [address], [place] [address] Jun, [facility] [address] [id number] [address] [place] [address], [place] [address] May, [facility] [address] [id number] [address] [place] [address], [place] [address] May, [facility] [address] [id number] [address] [place] [address], [place] [address] May, [facility] [address] [id number] [address] [place] [address], [place] [address] May, [facility] [address] [id number] [address] [place] [address], [place] [address] May, [facility] [address] [id number] [address] [place] [address], [place] [address] May, [facility] [address] [id number] [address] [place] [address], [place] [address] May, [facility] [address] [id number] [address] [place] [address], [place] [address] May, [facility] [address] [id number] [address] [place] [address], [place] [address] May, [facility] [address] [id number] [address] [place] [address], [place] [address] May, [facility] [address] [id number] [address] [place] [address], [place] [address] May, [facility] [address] [id number] [address] [place] [address], [place] [address] May, [facility] [address] [id number] [address] [place] [address], [place] [address] May, [facility] [address] [id number] [address] [place] [address], [place] [address] Apr, [facility] [address] [id number] [address] [place] [address], [place] [address] Apr, [facility] [address] [id number] [address] [place] [address], [place] [address] Mar, [facility] [address] [id number] [address] [place] [address], [place] [address] Mar, [facility] [address] [id number] [address] [place] [address], [place] [address] 24 Feb, 2013 [facility] [address] [id number] [address] [place] [address], [place] [address] Feb, [facility] [address] [id number] [address] [place] [address], [place] [address] Feb, [facility] [address] [id number] [address] [place] [address] Feb, [facility] [address] [id number] [address] [place] [address] Jan, [facility] [address] [id number] [address] [place] [address], [place] [address] Jan, [facility] [address] [id number] [address] [place] [address], [place] [address] Jan, [facility] [address] [id number] [address] [place] [address], [place] [address] Jan, [facility] [address] [id number] [address] [place] [address], [place] [address] Jan, [facility] [address] [id number] [address] [place] [address], [place] [address] Jan, [facility] [address] [id number] [address] [place] [address], [place] [address] Dec, [facility] [address] [id number] [address] [place] [address], [place] [address] Dec, [facility] [address] [id number] [address] [place] [address], [place] [address] Dec, [facility] [address] [id number] [address] [place] [address], [place] [address] Dec, [facility] [address] [id number] [address] [place] [address], [place] [address] Nov, [facility] [address] [id number] [address] [place] [address], [place] [address] October, [facility] [address] [id number] [address] [place] [address], [place] [address] October, [facility] [address] [id number] [address] [place] [address], [place] [address] October, [facility] [address] [id number] [address] [place] [address], [place] [address] Sep, [facility] [address] [id number] [address] [place] [address], [place] [address] Sep, [facility] [address] [id number] [address] [place] [address], [place] [address] Jun, [facility] [address] [id number] [address] [place] [address], [place] [address] Jun, [facility] [address] [id number] [address] [place] [address], [place] [address] Jun, [facility] [address] [id number] [address] [place] [address], [place] [address] Apr, [facility] [address] [id number] [address] [place] [address], [place] [address] Apr, [facility] [address] [id number] [address] [place] [address], [place] [address] Apr, [facility] [address] [id number] [address] [place] [address], [place] [address] Apr, [facility] [address] [id number] [address] [place] [address], [place] [address] Mar, [facility] [address] [id number] [address] [place] [address], [place] [address] Mar, [facility] [address] [id number] [address] [place] [address], [place] [address] Mar, [facility] [address] [id number] [address] [place] [address], [place] [address] Mar, [facility] [address] [id number] [address] [place] [address], [place] [address] Feb, [facility] [address] [id number] [address] [place] [address], [place] [address] Feb, [facility] [address] [id number] [address] [place] [address], [place] [address] Feb, [facility] [address] [id number] [address] [place] [address], [place] [address] Jan, [facility] [address] [id number] [address] [place] [address], [place] [address] Jan, [facility] [address] [id number] [address] [place] [address], [place] [address] Jan, [facility] [address] [id number] [address] [place] [address], [place] [address] Jan, [facility] [address] [id number] [address] [place] [address], [place] [address] Dec, [facility] [address] [id number] [address] [place] [address], [place] [address] Dec, [facility] [address] [id number] [address] [place] [address], [place] [address] Nov, [facility] [address] [id number] [address] [place] [address], [place] [address] Nov, [facility] [address] [id number] [address] [place] [address], [place] [address] October, [facility] [address] [id number] [address] [place] [address], [place] [address] October, [facility] [address] [id number] [address] [place] [address], [place] [address] October, [facility] [address] [id number] [address] [place] [address], [place] [address] Sep, [facility] [address] [id number] [address] [place] [address], [place] [address] Sep, [facility] [address] [id number] [address] [place] [address], [place] [address] Sep, [facility] [address] [id number] [address] [place] [address], [place] [address] Aug, [facility] [address] [id number] [address] [place] [address], [place] [address] Aug, [facility] [address] [id number] [address] [place] [address], [place] [address] Aug, [facility] [address] [id number] [address] [place] [address], [place] [address] Aug, [facility] [address] [id number] [address] [place] [address], [place] [address] Aug, [facility] [address] [id number] [address] [place] [address], [place] [address] Jul, [facility] [address] [id number] [address] [place] [address], [place] [address] 16 Jul, 2011 [facility] [address] [id number] [address] [place] [address], [place] [address] 13 Jul, 2011 [facility] [address] [id number] [address] [place] [address], [place] [address] 09 Jul, 2011 [facility] [address] [id number] [address] [place] [address], [place] [address] 07 Jul, 2011 [facility] [address] [id number] [address] [place] [address], [place] [address] Jul, 2011 [facility] [address] [id number] [address] [place] [address], [place] [address] Jul, [facility] [address] [id number] [address] [place] [address], [place] [address] Jul, [facility] [address] [id number] [address] [place] [address], [place] [address] Jun, [facility] [address] [id number] [address] [place] [address], [place] [address] Jun, [facility] [address] [id number] [address] [place] [address], [place] [address] May, [facility] [address] [id number] [address] [place] [address], [place] [address] May, [facility] [address] [id number] [address] [place] [address], [place] [address] May, [facility] [address] [id number] [address] [place] [address], [place] [address] May, [facility] [address] [id number] [address] [place] [address], [place] [address] Apr, [facility] [address] [id number] [address] [place] [address], [place] [address] Apr, [facility] [address] [id number] [address] [place] [address], [place] [address] Apr, [facility] [address] [id number] [address] [place] [address], [place] [address] 18 Mar, 2011 [facility] [address] [id number] [address] [place] [address], [place] [address] 18 Mar, 2011 [facility] [address] [id number] [address] [place] [address], [place] [address] 18 Mar, 2011 [facility] [address] [id number] [address] [place] [address], [place] [address] 2011 [facility] [address] [id number] [address] [place] [address], [place] [address] Dec, [facility] [address] [id number] [address] [place] [address], [place] [address] October, [facility] [address] [id number] [address] [place] [address], [place] [address] 28 May, 2010 [facility] [address] [id number] [address] [place] [address], [place] [address] 13 May, 2010 [facility] [address] [id number] [address] [place] [address], [place] [address] 13 May, 2010 [facility] [address] [id number] [address] [place] [address], [place] [address] 06 May, 2010 [facility] [address] [id number] [address] [place] [address], [place] [address] Mar, [facility] [address] [id number] [address] [place] [address], [place] [address] Mar, [facility] [address] [id number] [address] [place] [address], [place] [address] 31 May, 2009 [facility] [address] [id number] [address] [place] [address], [place] [address] 30 May, 2009 [facility] [address] [id number] [address] [place] [address], [place] [address] 08 May, 2009 [facility] [address] [id number] [address] [place] [address], [place] [address] 08 May, 2009 [facility] [address] [id number] [address] [address] Apr, [facility] [address] [facility] [id number] [address] [address] Apr, [facility] [address] [facility] [id number] [address] [address] October, IMMUNIZATIONS No Known Immunizations SOCIAL HISTORY [...]
--- OUTSIDE RECORDS SUMMARY | 2020-01-13 11:45 | XMS REPORT ---
Author Author Monique RAHMAN [facility] Address [address] [place] [address] Care Team Providers Care Drain Tiler Name Role Phone RASHEED RAHMAN Unavailable PROBLEMS Type Condition ICD9-CM Code DOY62-GJ Code Onset Dates Condition S tatus SNOMED Code Problem History of illicit drug use Z87.898 Ac tive 884367528 Problem Snoring R06.83 Active 13451567 Problem Impaired circulation I99.9 Active 36288986 Problem MRSA (methicillin resistant staph aureus) culture positive Z22.322 Active 217560226 Problem Panic disorder without agoraphobia F41.0 Active 97022531 Problem Dysthymic disorder F34.1 Active 7 0666615 Problem Mood disorder F39 Active 055889 05 Problem Arthritis M19.90 Active 4411334 Problem Mild chronic obstructive pulmonary disease J44.9 Active 338832939 Problem Mild persistent asthma without complication J45.30 Active 556019169 Problem Essential hypertension I10 Active 62686592 Problem On home oxygen therapy Z99.81 Active 748394757085 Problem Social phobia F40.10 Active 005929 02 Problem Neuropathy G62.9 Active 628034800 Problem 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 Active 150429479 Problem Major depressive disorder, recurrent episode, moderate F33.1 Active 794785479 Problem Psychotic disorder F29 Active 6 9347110 Problem Hypertension, benign I10 Active 90588480 Problem Onychomycosis B35.1 Active 320826 008 Problem Body mass index (BMI) 40.0-44.9, adult Z68.41 Active 953179277 Problem Varicose veins of both lower extremities I83.93 Active 85730462 Problem Sciatica, left side M54.32 Active 62316978 Problem Agoraphobia F40.00 Active 00896357 Problem Fatigue R53.83 Active 00705810 Problem Major depressive disorder in full remission F32.5 Active 41608401 Problem Slow transit constipation K59.01 Acti ve 72248376 Problem Chronic obstructive pulmonary disease, unspecified COPD ty pe J44.9 Active 08670826 Problem Unspecified psychosis not du e to a substance or known physiological condition F29 Active 135720780 ALLERGIES No Information ENCOUNTERS Encounter Location Date Diagnosis [place] [address] [address] Nov, [place] [address] [address] Sep, Abdominal pain, right upper quadrant R10.11 [place] [address] [address] Sep, Major depressive disorder, r ecurrent episode, moderate F33.1 ; Panic disorder without agoraphobia F41.0 and Morbid obesity E66.01 [place] [address] [address] Aug, Bronchitis J40 [place] [address] [address] Aug, Sciatica, left side M54.32 a nd Morbid obesity E66.01 [place] [address] [address] Aug, [place] [address] [address] Aug, Sciatica, left side M54.32 [place] [address] [address] Aug, Neuropathy G62.9 ; Onychomyc osis B35.1 ; Callus of foot L84 and Skin fissures R23.4 [place] [address] [address] [place] [id number] [address] [place] [address] Jul, [place] [address] [address] Jul, Morbid obesity E66.01 [place] [address] [address] [place] [id number] [address] [place] [address] Jul, Unspecified psychosis not du e to a substance or known physiological condition F29 ; Chronic obstructive pulmonary disease, unspecified COPD type J44.9 and Body mass index (BMI) 40.0-44.9, adult Z68.41 [place] [address] [address] Jun, [place] [address] [address] Jun, Morbid obesity E66.01 [place] [address] [address] May, Morbid obesity E66.01 [place] [address] [address] May, Encounter for immunization Z 23 [place] [address] [address] May, Major depressive disorder, r ecurrent episode, moderate F33.1 ; Panic disorder without agoraphobia F41.0 and Morbid obesity E66.01 [place] [address] [address] May, Major depressive disorder in full remission F32.5 and Panic disorder without agoraphobia F41.0 [place] [address] [place] [id number] [address] [place] [address] Apr, Morbid obesity E66.01 [place] [address] [address] Apr, Slow transit constipation K5 9.01 and Cellulitis of left lower extremity L03.116 [place] [address] [address] [place] [id number] [address] [place] [address] Apr, Morbid obesity E66.01 [place] [address] [address] Apr, [place] [address] [address] Apr, Major depressive disorder, r ecurrent episode, moderate F33.1 and Panic disorder without agoraphobia F41.0 [place] [address] [address] Mar, Viral upper respiratory trac t infection J06.9 [place] [address] [address] Mar, Bronchitis J40 and Encounter for immunization Z23 [address] [address] Mar, Morbid obesity E66.01 [place] [address] [address] Feb, Major depressive disorder, r ecurrent episode, moderate F33.1 and Panic disorder without agoraphobia F41.0 [place] [address] [address] Feb, Morbid obesity E66.01 [place] [address] [address] Feb, Onychomycosis B35.1 ; 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 [id number] [address] [place] [address] Jan, [place] [address] [facility] [id number] [address] [place] [address] Jan, Major depressive disorder in full remission F32.5 and Panic disorder without agoraphobia F41.0 [place] [address] [facility] [id number] [address] [place] [address] Jan, [place] [address] [facility] [id number] [address] [place] [address] Jan, Major depressive disorder, r ecurrent episode, moderate F33.1 ; Panic disorder without agoraphobia F41.0 and Morbid obesity E66.01 [place] [address] [place] [id number] [address] [place] [address] Dec, Bilious vomiting with nausea R11.14 ; Coughing R05 and Choking, subsequent encounter T17.308D [place] [address] [place] [id number] [address] [place] [address] Dec, Morbid obesity E66.01 [place] [address] [facility] [id number] [address] [place] [address] Dec, Major depressive disorder, r ecurrent episode, moderate F33.1 and Panic disorder without agoraphobia F41.0 [place] [address] [facility] [id number] [address] [place] [address] Dec, [place] [address] [facility] [id number] [address] [place] [address] Dec, Major depressive disorder, r ecurrent episode, moderate F33.1 [place] [address] [facility] [id number] [address] [place] [address] Nov, Major depressive disorder, r ecurrent episode, moderate F33.1 ; Panic disorder without agoraphobia F41.0 and Morbid obesity E66.01 [place] [address] [address] 20 Nov, 2018 Morbid obesity E66.01 [place] [address] [address] Nov, Major depressive disorder, r ecurrent episode, moderate F33.1 and Panic disorder without agoraphobia F41.0 [facility] [place] [address] [address] Nov, Allergic reaction, initial e ncounter T78.40XA and Morbid obesity E66.01 [place] [address] [address] Nov, [place] [address] [address] Nov, Morbid obesity E66.01 ; Swal lowing problem R13.10 and Hypertension, benign I10 [facility] IN [place] [address] [address] 07 Nov, 2018 Morbid obesity E66.01 ; COPD exacerbation J44.1 and Non- recurrent acute suppurative otitis media of left ear without spontaneous rupture of tympanic membrane H66.002 [place] [address] [address] 07 Nov, 2018 Onychomycosis B35.1 ; Neurop athy G62.9 and Fissure in skin of foot R23.4 [place] [address] [address] October, Major depressive disorder, r ecurrent episode, moderate F33.1 ; Panic disorder without agoraphobia F41.0 and Morbid obesity E66.01 [facility] IN [place] [address] [address] October, Viral upper respiratory trac t infection J06.9 [place] [address] [address] October, [facility] [address] [facility] [id number] [address] [place] [address] October, Major depressive disorder, r ecurrent episode, moderate F33.1 and Panic disorder without agoraphobia F41.0 [facility] [address] [id number] [address] [place] [address] October, [facility] [address] [facility] [id number] [address] [place] [address] October, [facility] [address] [id number] [address] [place] [address] October, [facility] [address] [facility] [id number] [address] [place] [address] October, [facility] [address] [facility] [id number] [address] [place] [address] October, [facility] [address] [facility] [id number] [address] [place] [address] October, [facility] [address] [facility] [id number] [address] [place] [address] October, Major depressive disorder, r ecurrent episode, moderate F33.1 and Panic disorder without agoraphobia F41.0 [facility] [address] [facility] [id number] [address] [place] [address] Sep, Morbid obesity E66.01 and Vane mbar neuritis M54.16 [facility] [address] [facility] [id number] [address] [place] [address] Sep, Panic disorder without agora phobia F41.0 and Major depressive disorder, recurrent episode, moderate F33.1 [facility] [address] [facility] [id number] [address] [place] [address] Sep, Gastroenteritis K52.9 ; Low back pain M54.5 ; Other chronic pain G89.29 and Morbid obesity E66.01 [facility] [address] [facility] [id number] [address] [place] [address] Sep, Major depressive disorder, r ecurrent episode, moderate F33.1 ; Panic disorder without agoraphobia F41.0 and Social phobia F40.10 [place] [address] [place] [address] Sep, Panic disorder without agora phobia F41.0 [place] [address] [place] [id number] [address] [place] [address] Sep, Panic disorder without agora phobia F41.0 [place] [address] [address] Aug, Panic disorder without agora phobia F41.0 ; Major depressive disorder, recurrent episode, moderate F33.1 ; Social phobia F40.10 ; Psychotic disorder F29 ; Tardive dyskinesia G24.01 and Morbid obesity E66.01 [place] [address] [address] Aug, Dysthymic disorder F34.1 and Psychotic disorder F29 [place] [address] [address] Aug, [facility] Z00.00 ; Morbid obesity E66.01 and 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 [place] [address] [address] [place] [id number] [address] [place] [address] Aug, Dysthymic disorder F34.1 and Psychotic disorder F29 [place] [address] [address] Aug, Neuropathy G62.9 ; Onychomyc osis B35.1 and Xerosis of skin L85.3 [place] [address] [place] [id number] [address] [place] [address] Jul, [place] [address] [place] [id number] [address] [place] [address] Jul, Mood disorder F39 ; Wheezing R06.2 ; Choking, initial encounter T17.308A and Coughing R05 [facility] [address] [address] Jul, Low back pain M54.5 [facility] [address] [place] [id number] [address] [place] [address] Jun, Flu-like symptoms R68.89 ; B WA 45.0-49.9, adult Z68.42 ; COPD exacerbation J44.1 and Acute bronchitis J20.9 [place] [address] [address] Jun, [place] [address] [address] May, [place] [address] [address] May, Onychomycosis B35.1 and 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.610 [place] [address] [address] May, Low back pain M54.5 and Abdoulaye a leg R60.0 [place] [address] [address] May, BMI 45.0-49.9, adult Z68.42 ; Well woman exam with routine gynecological exam Z01.419 and Breast cancer screening Z12.31 [place] [address] [address] Apr, Arthritis M19.90 [place] [address] [address] Apr, Arthritis M19.90 and Otalgia of both ears H92.03 [place] [address] [place] [id number] [address] [place] [address] Feb, [place] [address] [address] Feb, Low back pain M54.5 ; Other chronic pain G89.29 ; Exertional asthma J45.990 and Encounter for immunization Z23 [facility] [address] [place] [address] Feb, Skin fissures R23.4 ; Neurop athy G62.9 and Onychomycosis B35.1 [facility] [address] [place] [id number] [address] [place] [address] 05 Feb, 2018 Dysthymic disorder F34.1 [place] [address] [place] [address] 04 Feb, 2018 [place] [address] [address] Jan, [place] [address] [address] Jan, Abrasion of right elbow, ini tial encounter S50.311A ; Abrasion, right knee, initial encounter S80.211A and Sprain of other ligament of right ankle, initial encounter S93.491A [place] [address] [address] Jan, [facility] [address] [place] [id number] [address] [place] [address] Jan, Injury of left ankle, initia l encounter S99.912A ; Fall down stairs, initial encounter W10.8XXA and BMI 45.0-49.9, adult Z68.42 [place] [address] [place] [address] Jan, COPD exacerbation J44.1 [place] [address] [place] [id number] [address] [place] [address] Jan, 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 [place] [address] [place] [id number] [address] [place] [address] 08 Jan, 2018 Bronchitis J40 and Acute sup purative otitis media of left ear without spontaneous rupture of tympanic membrane, recurrence not specified H66.002 [place] [address] [address] Jan, [place] [address] [place] [id number] [place] [address] Jan, Bronchitis J40 and BMI 40.0- 44.9, adult Z68.41 [place] [address] [address] Jan, [place] [address] [address] Dec, Gastric pain R10.9 [place] [address] [place] [id number] [place] [address] Dec, [place] [address] [address] Dec, History of illicit drug use Z87.898 ; Neuropathy G62.9 ; COPD (chronic obstructive pulmonary disease) with chronic bronchitis J44.9 and Acute pain of right knee M25.561 [place] [address] [address] Nov, [place] [address] [address] Nov, Onychomycosis B35.1 and Cont usion of left foot, subsequent encounter S90.32XD [place] [address] [place] [id number] [address] [place] [address] Nov, COPD exacerbation J44.1 [place] [address] [address] Sep, [place] [address] [place] [id number] [place] [address] Sep, Dysthymic disorder F34.1 ; T obacco abuse Z72.0 ; Pain in right knee M25.561 ; Pain in left knee M25.562 ; Other chronic pain G89.29 and BMI 40.0- 44.9, adult Z68.41 [place] [address] [address] Aug, Major depressive disorder, r ecurrent episode, moderate F33.1 and Social phobia F40.[address] [address] 14 Aug, 2017 Dysthymic disorder F34.1 ; N on-pressure chronic ulcer of left thigh, unspecified ulcer stage L97.129 ; Tobacco abuse Z72.0 ; Mild chronic obstructive pulmonary disease J44.9 and Forgetfulness R68.[address] [address] 09 Aug, 2017 Onychomycosis B35.1 ; Fissur e in skin of foot R23.4 and Foot callus L84 [facility] N [address] [address] Jul, Right medial knee pain M25.5 61 ; Upper respiratory tract infection, unspecified type J06.9 and BMI 40.0-44.9, adult Z68.41 [facility] W[facility] IN [address] [address] 08 Jul, 2017 Nausea and vomiting, intract ability of vomiting not specified, unspecified vomiting type R11.2 ; Left ear pain H92.02 and Gastric pain R10.9 [place] [address] [address] Apr, Encounter for immunization Z [address] [address] Apr, Onychomycosis B35.1 ; Xerosi s of skin L85.3 ; Neuropathy G62.9 and 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 [id number] [address] [place] [address] Dec, [facility] [address] [id number] [address] [place] [address] Dec, [facility] [address] [facility] [id number] [address] [place] [address] Nov, [facility] [address] [facility] [id number] [address] [place] [address] Aug, [facility] [address] [facility] [id number] [address] [place] [address] Aug, [facility] [address] [facility] [id number] [address] [place] [address] Jul, [facility] [address] [facility] [id number] [address] [place] [address] Jul, [facility] [address] [facility] [id number] [address] [place] [address] Jul, Decubitus ulcer of left thig h, stage 2 L89.892 [facility] [address] [facility] [id number] [address] [place] [address] 17 Jul, 2016 Decubitus ulcer of left thig h, stage 2 L89.892 [facility] [address] [facility] [id number] [address] [place] [address] 17 Jul, 2016 [facility] [address] [facility] [id number] [address] [place] [address] 15 Jul, 2016 Decubitus ulcer of left thig h, stage 2 L89.892 [facility] [address] [facility] [id number] [address] [place] [address] 14 Jul, 2016 [facility] [address] [facility] [id number] [address] [place] [address] 13 Jul, 2016 Cellulitis of other specifie d site L03.818 ; Illicit drug use F19.90 and Decubitus ulcer of left thigh, stage 2 L89.892 [facility] [address] [facility] [id number] [address] [place] [address] Jul, [facility] [address] [facility] [id number] [address] [place] [address] Jul, Cellulitis of right breast N 61.0 [facility] [address] [facility] [id number] [address] [place] [address] Jun, [facility] [address] [facility] [id number] [address] [place] [address] Jun, [facility] [address] [place] [id number] [address] [place] [address] Jun, Wheezing R06.2 and Arthralgi a, unspecified joint M25.50 [facility] [address] [place] [id number] [address] [place] [address] May, [facility] [address] [place] [id number] [address] [place] [address] May, [facility] [address] [place] [id number] [address] [place] [address] May, [facility] [address] [place] [id number] [address] [place] [address] May, Shortness of breath R06.02 [facility] [address] [facility] [id number] [address] [place] [address] May, Onychomycosis B35.1 and Fiss ure in skin of foot R23.4 [facility] [address] [facility] [id number] [address] [place] [address] Apr, [facility] [address] [facility] [id number] [address] [place] [address] Apr, Dizziness R42 [facility] [address] [place] [id number] [address] [place] [address] 14 Apr, 2016 Shortness of breath R06.02 ; Essential hypertension I10 ; Dizziness R42 and On home oxygen therapy Z99.81 [facility] [address] [id number] [address] [place] [address] Apr, [facility] [address] [id number] [address] [place] [address] 08 Apr, 2016 [facility] [address] [id number] [address] [place] [address] Apr, [facility] [address] [id number] [address] [place] [address] Apr, [facility] [address] [id number] [address] [place] [address] Apr, [facility] [address] [id number] [address] [place] [address] Apr, [facility] [address] [id number] [address] [place] [address] Apr, [facility] [address] [id number] [address] [place] [address] Mar, Mild chronic obstructive pul monary disease J44.9 [facility] [address] [id number] [address] [place] [address] Mar, [facility] [address] [id number] [address] [place] [address] Mar, Epigastric pain R10.13 ; Low back pain M54.5 ; Other chronic pain G89.29 and Breast cancer screening Z12.39 [facility] [address] [id number] [address] [place] [id number] Mar, [facility] [address] [id number] [address] [place] [id number] Mar, [facility] [address] [id number] [address] [place] [id number] Feb, [facility] [address] [facility] [id number] [address] [place] [id number] 08 Feb, 2016 [place] [address] [facility] [id number] [address] [place] [id number] Feb, Fissure in skin of foot R23. 4 and Onychomycosis B35.1 [place] [address] [address] [place] [id number] [address] [place] [id number] Jan, Agoraphobia F40.00 [place] [address] [facility] [id number] [address] [place] [id number] Dec, Agoraphobia F40.00 [place] [address] [address] [place] [id number] [address] [place] [id number] Dec, Mild persistent asthma witho ut complication J45.30 ; Dysthymic disorder F34.1 and Upper respiratory tract infection, unspecified type J06.9 [place] [id number] [place] [id number] Nov, Agoraphobia F40.00 [place] [address] [address] [place] [id number] [address] [place] [address] October, Agoraphobia F40.00 [place] [address] [place] [id number] [address] [place] [address] Sep, Panic disorder without agora phobia F41.0 ; Agoraphobia F40.00 and Dysthymic disorder F34.1 [place] [address] [place] [id number] [address] [place] [address] Sep, Panic attacks F41.0 [place] [address] [facility] [id number] [address] [place] [address] Sep, [place] [address] [place] [id number] [address] [place] [address] Sep, Panic disorder without agora phobia F41.0 ; Varicose veins of both lower extremities I83.93 and Fatigue R53.83 [place] [address] [place] [id number] [address] [place] [address] 14 Sep, 2015 Fatigue R53.83 [place] [address] [address] 05 Sep, 2015 [place] [address] [place] [id number] [address] [place] [address] Aug, [place] [address] [address] Aug, [place] [address] [address] Aug, Type 2 diabetes mellitus wit h diabetic neuropathic arthropathy E11.610 [place] [address] [address] Aug, Panic disorder without agora phobia F41.0 ; Agoraphobia F40.00 and Dysthymic disorder F34.1 [place] [address] [place] [id number] [address] [place] [address] Aug, Shortness of breath R06.02 ; Panic attacks F41.0 ; COPD (chronic obstructive pulmonary disease) J44.9 ; Tobacco abuse Z72.0 ; Family history of diabetes mellitus Z83.3 and Weight gain R63.5 [place] [address] [place] [id number] [address] [place] [address] Aug, [place] [address] [place] [id number] [address] [place] [address] Jul, [place] [address] [place] [id number] [address] [place] [address] Jun, Onychomycosis B35.1 ; Neurop athy G62.9 and Impaired circulation I99.9 [place] [address] [place] [id number] [address] [place] [address] 09 Mar, 2015 Fissure in skin of foot R23. 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 [id number] [address] [place] [address] 18 Feb, 2015 Family history of coronary a rteriosclerosis V17.3 [facility] [address] [facility] [id number] [address] [place] [address] 15 Feb, 2015 Allergic rhinitis due to darien agnieszka 477.0 ; Unspecified breast screening V76.10 ; Anxiety 300.00 and Family history of coronary arteriosclerosis V17.3 [facility] [address] [facility] [id number] [address] [place] [address] Jan, [facility] [address] [facility] [id number] [address] [place] [address] Dec, [facility] [address] [place] [id number] [address] [place] [address] Dec, Onychomycosis 110.1 and Skin fissures 709.8 [facility] [address] [place] [id number] [address] [place] [address] Sep, [facility] [address] [facility] [id number] [address] [place] [address] Sep, [facility] [address] [place] [id number] [address] [place] [address] Aug, [facility] [address] [facility] [id number] [address] [place] [address] Aug, [facility] [address] [facility] [id number] [address] [place] [address] Jul, [facility] [address] [facility] [id number] [address] [place] [address] Jul, [facility] [address] [facility] [id number] [address] [place] [address] Jun, [facility] [address] [facility] [id number] [address] [place] [address] Jun, [facility] [address] [facility] [id number] [address] [place] [address] Jun, [facility] [address] [id number] [address] [place] [address], [place] [address] Jun, [facility] [address] [id number] [address] [place] [address], [place] [address] Jun, [facility] [address] [id number] [address] [place] [address], [place] [address] May, [facility] [address] [id number] [address] [place] [address], [place] [address] May, [facility] [address] [id number] [address] [place] [address], [place] [address] May, [facility] [address] [id number] [address] [place] [address], [place] [address] May, [facility] [address] [id number] [address] [place] [address], [place] [address] May, [facility] [address] [id number] [address] [place] [address], [place] [address] May, [facility] [address] [id number] [address] [place] [address], [place] [address] May, [facility] [address] [id number] [address] [place] [address], [place] [address] May, [facility] [address] [id number] [address] [place] [address], [place] [address] Apr, [facility] [address] [id number] [address] [place] [address], [place] [address] Apr, [facility] [address] [id number] [address] [place] [address], [place] [address] Apr, [facility] [address] [id number] [address] [place] [address], [place] [address] Apr, [facility] [address] [id number] [address] [place] [address], [place] [address] Apr, [facility] [address] [id number] [address] [place] [address], [place] [address] Apr, [facility] [address] [id number] [address] [place] [address], [place] [address] Apr, [facility] [address] [id number] [address] [place] [address], [place] [address] Apr, [facility] [address] [id number] [address] [place] [address], [place] [address] Apr, [facility] [address] [id number] [address] [place] [address], [place] [address] Apr, [facility] [address] [id number] [address] [place] [address], [place] [address] Mar, [facility] [address] [id number] [address] [place] [address], [place] [address] Mar, [facility] [address] [id number] [address] [place] [address], [place] [address] Mar, [facility] [address] [id number] [address] [place] [address], [place] [address] Mar, [facility] [address] [id number] [address] [place] [address], [place] [address] Mar, [facility] [address] [id number] [address] [place] [address], [place] [address] Mar, [facility] [address] [id number] [address] [place] [address], [place] [address] Mar, [facility] [address] [id number] [address] [place] [address], [place] [address] Mar, [facility] [address] [id number] [address] [place] [address], [place] [address] Mar, [facility] [address] [id number] [address] [place] [address], [place] [address] Mar, [facility] [address] [id number] [address] [place] [address], [place] [address] Mar, [facility] [address] [id number] [address] [place] [address], [place] [address] Mar, 2013 [facility] [address] [id number] [address] [place] [address], [place] [address] 22 Mar, 2014 [facility] [address] [id number] [address] [place] [address], [place] [address] 22 Mar, 2014 [facility] [address] [id number] [address] [place] [address], [place] [address] 22 Mar, 2014 [facility] [address] [id number] [address] [place] [address], [place] [address] 20 Mar, 2014 [facility] [address] [id number] [address] [place] [address], [place] [address] 20 Mar, 2014 [facility] [address] [id number] [address] [place] [address], [place] [address] 16 Mar, 2014 [facility] [address] [id number] [address] [place] [address], [place] [address] 16 Mar, 2014 [facility] [address] [id number] [address] [place] [address], [place] [address] 15 Mar, 2014 [facility] [address] [id number] [address] [place] [address] 14 Mar, 2014 [facility] [address] [id number] [address] [place] [address] 14 Mar, 2014 [facility] [address] [id number] [address] [place] [address] 14 Mar, 2014 [facility] [address] [id number] [address] [place] [address], [place] [address] 14 Mar, 2014 [facility] [address] [id number] [address] [place] [id number] 09 Mar, 2014 [facility] [address] [id number] [address] [place] [id number] 09 Mar, 2014 [facility] [address] [id number] [address] [place] [address], [place] [address] 09 Mar, 2013 [facility] [address] [id number] [address] [place] [address], [place] [address] 09 Mar, 2013 [facility] [address] [id number] [address] [place] [address], [place] [address] 30 Feb, 2013 [facility] [address] [id number] [address] [place] [address], [place] [address] 30 Feb, 2013 [facility] [address] [id number] [address] [place] [address], [place] [address] 30 Feb, 2013 [facility] [address] [id number] [address] [place] [address], [place] [address] 30 Feb, 2013 [facility] [address] [id number] [address] [place] [address], [place] [address] Feb, 2013 [facility] [address] [id number] [address] [place] [address], [place] [address] Feb, 2013 [facility] [address] [id number] [address] [place] [address], [place] [address] Feb, 2013 [facility] [address] [id number] [address] [place] [address], [place] [address] Feb, 2013 [facility] [address] [id number] [address] [place] [address], [place] [address] Feb, 2013 [facility] [address] [id number] [address] [place] [address], [place] [address] Feb, 2013 [facility] [address] [id number] [address] [place] [address], [place] [address] Feb, 2013 [facility] [address] [id number] [address] [place] [address], [place] [address] Feb, 2013 [facility] [address] [id number] [address] [place] [address], [place] [address] Jan, [facility] [address] [id number] [address] [place] [address], [place] [address] Jan, [facility] [address] [id number] [facility] [place] [address] Jan, [facility] [address] [id number] [facility] [place] [address] Jan, [facility] [address] [id number] [facility] [place] [address] Jan, [facility] [address] [id number] [address] [place] [address], [place] [address] Jan, [facility] [address] [id number] [address] [place] [address], [place] [address] Jan, [facility] [address] [id number] [address] [place] [address], [place] [address] Jan, [facility] [address] [id number] [address] [place] [address], [place] [address] Jan, [facility] [address] [id number] [address] [place] [address], [place] [address] Jan, [facility] [address] [id number] [address] [place] [address], [place] [address] Jan, [facility] [address] [id number] [address] [place] [address], [place] [address] Jan, [facility] [address] [id number] [address] [place] [address], [place] [address] Jan, [facility] [address] [id number] [address] [place] [address], [place] [address] Dec, [facility] [address] [id number] [address] [place] [address], [place] [address] Dec, [facility] [address] [id number] [address] [place] [address], [place] [address] Dec, [facility] [address] [id number] [address] [place] [address], [place] [address] Dec, [facility] [address] [id number] [address] [place] [address], [place] [address] Dec, [facility] [address] [id number] [address] [place] [address], [place] [address] Dec, [facility] [address] [id number] [address] [place] [address], [place] [address] Dec, [facility] [address] [id number] [address] [place] [address], [place] [address] Dec, [facility] [address] [id number] [address] [place] [address], [place] [address] Dec, [facility] [address] [id number] [address] [place] [address], [place] [address] Dec, [facility] [address] [id number] [address] [place] [address], [place] [address] Dec, [facility] [address] [id number] [address] [place] [address], [place] [address] Dec, [facility] [address] [id number] [address] [place] [address], [place] [address] Dec, [facility] [address] [id number] [address] [place] [address], [place] [address] Dec, [facility] [address] [id number] [address] [place] [address], [place] [address] Dec, [facility] [address] [id number] [address] [place] [address], [place] [address] Dec, [facility] [address] [id number] [address] [place] [address], [place] [address] Dec, [facility] [address] [id number] [address] [place] [address], [place] [address] Dec, [facility] [address] [id number] [address] [place] [address], [place] [address] Nov, [facility] [address] [id number] [address] [place] [address], [place] [address] Nov, [facility] [address] [id number] [facility] [place] [address] 24 Nov, 2013 [facility] [address] [id number] [facility] [place] [address] Nov, [facility] [address] [id number] [facility] [place] [address] 16 Nov, 2013 [facility] [address] [id number] [address] [place] [address], [place] [address] Nov, [facility] [address] [id number] [address] [place] [address], [place] [address] Nov, [facility] [address] [id number] [address] [place] [address], [place] [address] Nov, [facility] [address] [id number] [address] [place] [address], [place] [address] Nov, [facility] [address] [id number] [address] [place] [address], [place] [address] Nov, [facility] [address] [id number] [address] [place] [address], [place] [address] Nov, [facility] [address] [id number] [address] [place] [address], [place] [address] Nov, [facility] [address] [id number] [address] [place] [address], [place] [address] Nov, [facility] [address] [id number] [address] [place] [address], [place] [address] Nov, [facility] [address] [id number] [address] [place] [address], [place] [address] Nov, [facility] [address] [id number] [address] [place] [address], [place] [address] Nov, [facility] [address] [id number] [address] [place] [address], [place] [address] Nov, [facility] [address] [id number] [address] [place] [address], [place] [address] Nov, [facility] [address] [id number] [address] [place] [address], [place] [address] Nov, [facility] [address] [id number] [address] [place] [address], [place] [address] Nov, [facility] [address] [id number] [address] [place] [address], [place] [address] October, [facility] [address] [id number] [address] [place] [address], [place] [address] October, [facility] [address] [id number] [address] [place] [address], [place] [address] October, [facility] [address] [id number] [address] [place] [address], [place] [address] October, [facility] [address] [id number] [address] [place] [address], [place] [address] Sep, [facility] [address] [id number] [address] [place] [address], [place] [address] Sep, [facility] [address] [id number] [address] [place] [address], [place] [address] Sep, [facility] [address] [id number] [address] [place] [address], [place] [address] Sep, [facility] [address] [id number] [address] [place] [address], [place] [address] Sep, [facility] [address] [id number] [address] [place] [address], [place] [address] Sep, [facility] [address] [id number] [address] [place] [address], [place] [address] Sep, [facility] [address] [id number] [address] [place] [address], [place] [address] Sep, [facility] [address] [id number] [address] [place] [address], [place] [address] Sep, [facility] [address] [id number] [address] [place] [address], [place] [address] Aug, [facility] [address] [id number] [address] [place] [address], [place] [address] Aug, [facility] [address] [id number] [address] [place] [address], [place] [address] Aug, [facility] [address] [id number] [address] [place] [address], [place] [address] Aug, [facility] [address] [id number] [address] [place] [address], [place] [address] Aug, [facility] [address] [id number] [address] [place] [address], [place] [address] Aug, [facility] [address] [id number] [address] [place] [address], [place] [address] Aug, [facility] [address] [id number] [address] [place] [address], [place] [address] Aug, [facility] [address] [id number] [address] [place] [address], [place] [address] Jul, [facility] [address] [id number] [address] [place] [address], [place] [address] Jul, [facility] [address] [id number] [address] [place] [address], [place] [address] Jun, [facility] [address] [id number] [address] [place] [address], [place] [address] Jun, [facility] [address] [id number] [address] [place] [address], [place] [address] Jun, [facility] [address] [id number] [address] [place] [address], [place] [address] Jun, [facility] [address] [id number] [address] [place] [address], [place] [address] Jun, [facility] [address] [id number] [address] [place] [address], [place] [address] Jun, [facility] [address] [id number] [address] [place] [address], [place] [address] Jun, [facility] [address] [id number] [address] [place] [address], [place] [address] Jun, [facility] [address] [id number] [address] [place] [address], [place] [address] Jun, [facility] [address] [id number] [address] [place] [address], [place] [address] Jun, [facility] [address] [id number] [address] [place] [address], [place] [address] Jun, [facility] [address] [id number] [address] [place] [address], [place] [address] Jun, [facility] [address] [id number] [address] [place] [address], [place] [address] May, [facility] [address] [id number] [address] [place] [address], [place] [address] May, [facility] [address] [id number] [address] [place] [address], [place] [address] May, [facility] [address] [id number] [address] [place] [address], [place] [address] May, [facility] [address] [id number] [address] [place] [address], [place] [address] May, [facility] [address] [id number] [address] [place] [address], [place] [address] May, [facility] [address] [id number] [address] [place] [address], [place] [address] May, [facility] [address] [id number] [address] [place] [address], [place] [address] May, [facility] [address] [id number] [address] [place] [address], [place] [address] May, [facility] [address] [id number] [address] [place] [address], [place] [address] May, [facility] [address] [id number] [address] [place] [address], [place] [address] May, [facility] [address] [id number] [address] [place] [address], [place] [address] May, [facility] [address] [id number] [address] [place] [address], [place] [address] May, [facility] [address] [id number] [address] [place] [address], [place] [address] Apr, [facility] [address] [id number] [address] [place] [address], [place] [address] Apr, [facility] [address] [id number] [address] [place] [address], [place] [address] Mar, [facility] [address] [id number] [address] [place] [address], [place] [address] Mar, [facility] [address] [id number] [address] [place] [address], [place] [address] 24 Feb, 2013 [facility] [address] [id number] [address] [place] [address], [place] [address] Feb, [facility] [address] [id number] [address] [place] [address], [place] [address] Feb, [facility] [address] [id number] [address] [place] [address] Feb, [facility] [address] [id number] [address] [place] [address] Jan, [facility] [address] [id number] [address] [place] [address], [place] [address] Jan, [facility] [address] [id number] [address] [place] [address], [place] [address] Jan, [facility] [address] [id number] [address] [place] [address], [place] [address] Jan, [facility] [address] [id number] [address] [place] [address], [place] [address] Jan, [facility] [address] [id number] [address] [place] [address], [place] [address] Jan, [facility] [address] [id number] [address] [place] [address], [place] [address] Dec, [facility] [address] [id number] [address] [place] [address], [place] [address] Dec, [facility] [address] [id number] [address] [place] [address], [place] [address] Dec, [facility] [address] [id number] [address] [place] [address], [place] [address] Dec, [facility] [address] [id number] [address] [place] [address], [place] [address] Nov, [facility] [address] [id number] [address] [place] [address], [place] [address] October, [facility] [address] [id number] [address] [place] [address], [place] [address] October, [facility] [address] [id number] [address] [place] [address], [place] [address] October, [facility] [address] [id number] [address] [place] [address], [place] [address] Sep, [facility] [address] [id number] [address] [place] [address], [place] [address] Sep, [facility] [address] [id number] [address] [place] [address], [place] [address] Jun, [facility] [address] [id number] [address] [place] [address], [place] [address] Jun, [facility] [address] [id number] [address] [place] [address], [place] [address] Jun, [facility] [address] [id number] [address] [place] [address], [place] [address] Apr, [facility] [address] [id number] [address] [place] [address], [place] [address] Apr, [facility] [address] [id number] [address] [place] [address], [place] [address] Apr, [facility] [address] [id number] [address] [place] [address], [place] [address] Apr, [facility] [address] [id number] [address] [place] [address], [place] [address] Mar, [facility] [address] [id number] [address] [place] [address], [place] [address] Mar, [facility] [address] [id number] [address] [place] [address], [place] [address] Mar, [facility] [address] [id number] [address] [place] [address], [place] [address] Mar, [facility] [address] [id number] [address] [place] [address], [place] [address] Feb, [facility] [address] [id number] [address] [place] [address], [place] [address] Feb, [facility] [address] [id number] [address] [place] [address], [place] [address] Feb, [facility] [address] [id number] [address] [place] [address], [place] [address] Jan, [facility] [address] [id number] [address] [place] [address], [place] [address] Jan, [facility] [address] [id number] [address] [place] [address], [place] [address] Jan, [facility] [address] [id number] [address] [place] [address], [place] [address] Jan, [facility] [address] [id number] [address] [place] [address], [place] [address] Dec, [facility] [address] [id number] [address] [place] [address], [place] [address] Dec, [facility] [address] [id number] [address] [place] [address], [place] [address] Nov, [facility] [address] [id number] [address] [place] [address], [place] [address] Nov, [facility] [address] [id number] [address] [place] [address], [place] [address] October, [facility] [address] [id number] [address] [place] [address], [place] [address] October, [facility] [address] [id number] [address] [place] [address], [place] [address] October, [facility] [address] [id number] [address] [place] [address], [place] [address] Sep, [facility] [address] [id number] [address] [place] [address], [place] [address] Sep, [facility] [address] [id number] [address] [place] [address], [place] [address] Sep, [facility] [address] [id number] [address] [place] [address], [place] [address] Aug, [facility] [address] [id number] [address] [place] [address], [place] [address] Aug, [facility] [address] [id number] [address] [place] [address], [place] [address] Aug, [facility] [address] [id number] [address] [place] [address], [place] [address] Aug, [facility] [address] [id number] [address] [place] [address], [place] [address] Aug, [facility] [address] [id number] [address] [place] [address], [place] [address] Jul, [facility] [address] [id number] [address] [place] [address], [place] [address] 16 Jul, 2011 [facility] [address] [id number] [address] [place] [address], [place] [address] 13 Jul, 2011 [facility] [address] [id number] [address] [place] [address], [place] [address] 09 Jul, 2011 [facility] [address] [id number] [address] [place] [address], [place] [address] 07 Jul, 2011 [facility] [address] [id number] [address] [place] [address], [place] [address] Jul, 2011 [facility] [address] [id number] [address] [place] [address], [place] [address] Jul, [facility] [address] [id number] [address] [place] [address], [place] [address] Jul, [facility] [address] [id number] [address] [place] [address], [place] [address] Jun, [facility] [address] [id number] [address] [place] [address], [place] [address] Jun, [facility] [address] [id number] [address] [place] [address], [place] [address] May, [facility] [address] [id number] [address] [place] [address], [place] [address] May, [facility] [address] [id number] [address] [place] [address], [place] [address] May, [facility] [address] [id number] [address] [place] [address], [place] [address] May, [facility] [address] [id number] [address] [place] [address], [place] [address] Apr, [facility] [address] [id number] [address] [place] [address], [place] [address] Apr, [facility] [address] [id number] [address] [place] [address], [place] [address] Apr, [facility] [address] [id number] [address] [place] [address], [place] [address] 18 Mar, 2011 [facility] [address] [id number] [address] [place] [address], [place] [address] 18 Mar, 2011 [facility] [address] [id number] [address] [place] [address], [place] [address] 18 Mar, 2011 [facility] [address] [id number] [address] [place] [address], [place] [address] 2011 [facility] [address] [id number] [address] [place] [address], [place] [address] Dec, [facility] [address] [id number] [address] [place] [address], [place] [address] October, [facility] [address] [id number] [address] [place] [address], [place] [address] 28 May, 2010 [facility] [address] [id number] [address] [place] [address], [place] [address] 13 May, 2010 [facility] [address] [id number] [address] [place] [address], [place] [address] 13 May, 2010 [facility] [address] [id number] [address] [place] [address], [place] [address] 06 May, 2010 [facility] [address] [id number] [address] [place] [address], [place] [address] Mar, [facility] [address] [id number] [address] [place] [address], [place] [address] Mar, [facility] [address] [id number] [address] [place] [address], [place] [address] 31 May, 2009 [facility] [address] [id number] [address] [place] [address], [place] [address] 30 May, 2009 [facility] [address] [id number] [address] [place] [address], [place] [address] 08 May, 2009 [facility] [address] [id number] [address] [place] [address], [place] [address] 08 May, 2009 [facility] [address] [id number] [address] [address] Apr, [facility] [address] [facility] [id number] [address] [address] Apr, [facility] [address] [facility] [id number] [address] [address] October, IMMUNIZATIONS No Known Immunizations SOCIAL HISTORY Never Assessed REASON FOR VISIT PLAN OF CARE VITAL SIGNS Height 64 in 2014-03-19 Weight 224.4 lbs 2014-03-19 Temperature 97.9 degrees Fahrenheit 2014-03-19 Heart Rate 76 bpm 2014-03-19 Respiratory Rate 20 2014-03-19 Blood pressure systolic 138 mmHg 2014-03-19 Blood pressure diastolic 80 mmHg 2014-03-19 MEDICATIONS Unknown Medications RESULTS No Results PROCEDURES Procedure Date Ordered Result Body Site SMOK TOB CESS CNSL; INTNSV > NEW PT 10 MIN Mar 19, 2014 ADMN FLU VAC NO FEE SCHED SAME DAY Mar 19, 2014 ASSAY OF MAGNESIUM Mar 19, 2014 BASIC METABOLIC PANEL Mar 19, 2014 VENIPUNCT, ROUTINE* Mar 19, 2014 NEB/MDI DEMO Mar 19, 2014 INSTRUCTIONS MEDICATIONS ADMINISTERED No Known Medications [...]
--- OUTSIDE RECORDS SUMMARY | 2020-01-13 11:46 | XMS REPORT ---
Author Author Monique Cobos Doctor Organization [facility] Address Unknown Phone Unavailable Care Team Providers Care Chief Scientific Officer Name Role Phone Migration, Doctor Unavailable Unavailable PROBLEMS Type Condition ICD9-CM Code FOS68-AF Code Onset Dates Condition S tatus SNOMED Code Problem History of illicit drug use Z87.898 Ac tive 753492364 Problem Snoring R06.83 Active 25712392 Problem Impaired circulation I99.9 Active 26877625 Problem MRSA (methicillin resistant staph aureus) culture positive Z22.322 Active 655238201 Problem Panic disorder without agoraphobia F41.0 Active 40861289 Problem Dysthymic disorder F34.1 Active 7 2704718 Problem Mood disorder F39 Active 582422 05 Problem Arthritis M19.90 Active 8086130 Problem Mild chronic obstructive pulmonary disease J44.9 Active 908972982 Problem Mild persistent asthma without complication J45.30 Active 914487289 Problem Essential hypertension I10 Active 12886852 Problem On home oxygen therapy Z99.81 Active 197276518279 Problem Social phobia F40.10 Active 377566 02 Problem Neuropathy G62.9 Active 383629479 Problem 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 Active 106520454 Problem Major depressive disorder, recurrent episode, moderate F33.1 Active 692350978 Problem Psychotic disorder F29 Active 6 3900998 Problem Hypertension, benign I10 Active 81841712 Problem Onychomycosis B35.1 Active 695158 008 Problem Body mass index (BMI) 40.0-44.9, adult Z68.41 Active 056478989 Problem Varicose veins of both lower extremities I83.93 Active 62159098 Problem Sciatica, left side M54.32 Active 59279204 Problem Agoraphobia F40.00 Active 31074287 Problem Fatigue R53.83 Active 82639316 Problem Major depressive disorder in full remission F32.5 Active 79994229 Problem Slow transit constipation K59.01 Acti ve 93063917 Problem Chronic obstructive pulmonary disease, unspecified COPD ty pe J44.9 Active 29805599 Problem Unspecified psychosis not du e to a substance or known physiological condition F29 Active 675777022 ALLERGIES No Information ENCOUNTERS Encounter Location Date Diagnosis [place] [address] [address] Nov, [place] [address] [address] 15 Sep, 2019 Abdominal pain, right upper quadrant R10.11 [place] [address] [address] 06 Sep, 2019 Major depressive disorder, r ecurrent episode, moderate F33.1 ; Panic disorder without agoraphobia F41.0 and Morbid obesity E66.01 [place] [address] [address] Aug, Bronchitis J40 [place] [address] [address] Aug, Sciatica, left side M54.32 a nd Morbid obesity E66.01 [place] [address] [address] Aug, [place] [address] [address] Aug, Sciatica, left side M54.32 [place] [address] [address] Aug, Neuropathy G62.9 ; Onychomyc osis B35.1 ; Callus of foot L84 and Skin fissures R23.4 [place] [address] [address] Jul, [place] [address] [address] 18 Jul, 2019 Morbid obesity E66.01 [place] [address] [address] Jul, Unspecified psychosis not du e to a substance or known physiological condition F29 ; Chronic obstructive pulmonary disease, unspecified COPD type J44.9 and Body mass index (BMI) 40.0-44.9, adult Z68.41 [facility] [address] [facility] [id number] [address] [place] [id number] Jun, [place] [address] [place] [id number] [place] [address] Jun, Morbid obesity E66.01 [place] [address] [place] [id number] [place] [address] May, Morbid obesity E66.01 [place] [address] [address] May, Encounter for immunization Z 23 [place] [address] [address] May, Major depressive disorder, r ecurrent episode, moderate F33.1 ; Panic disorder without agoraphobia F41.0 and Morbid obesity E66.01 [place] [address] [address] May, Major depressive disorder in full remission F32.5 and Panic disorder without agoraphobia F41.0 [place] [address] [place] [id number] [place] [address] Apr, Morbid obesity E66.01 [place] [address] [address] Apr, Slow transit constipation K5 9.01 and Cellulitis of left lower extremity L03.116 [place] [address] [address] Apr, Morbid obesity E66.01 [place] [address] [place] [id number] [place] [id number] Apr, [place] [address] [place] [id number] [place] [address] Apr, Major depressive disorder, r ecurrent episode, moderate F33.1 and Panic disorder without agoraphobia F41.0 [place] [address] [place] [id number] [place] [address] Mar, Viral upper respiratory trac t infection J06.9 [place] [address] [place] [id number] [place] [address] Mar, Bronchitis J40 and Encounter for immunization Z23 [place] [address] [place] [id number] [place] [address] 08 Mar, 2019 Morbid obesity E66.01 [place] [address] [address] Feb, Major depressive disorder, r ecurrent episode, moderate F33.1 and Panic disorder without agoraphobia F41.0 [place] [address] [place] [id number] [place] [address] Feb, Morbid obesity E66.01 [place] [address] [place] [address] 06 Feb, 2019 Onychomycosis B35.1 ; 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 and Xerosis of skin L85.3 [place] [address] [place] [address] 04 Feb, 2019 Major depressive disorder, r ecurrent episode, moderate F33.1 ; Panic disorder without agoraphobia F41.0 and Morbid obesity E66.01 [place] [address] [place] [id number] [place] [id number] Jan, Major depressive disorder in full remission F32.5 and Panic disorder without agoraphobia F41.0 [place] [address] [place] [id number] [place] [id number] Jan, Pneumonia of both lower lobe s due to infectious organism J18.1 and Morbid obesity E66.01 [place] [address] [place] [id number] [place] [address] Jan, [facility] [address] [place] [id number] [place] [address] Jan, Major depressive disorder in full remission F32.5 and Panic disorder without agoraphobia F41.0 [place] [address] [address] Jan, [place] [address] [address] Jan, Major depressive disorder, r ecurrent episode, moderate F33.1 ; Panic disorder without agoraphobia F41.0 and Morbid obesity E66.01 [place] [address] [address] Dec, Bilious vomiting with nausea R11.14 ; Coughing R05 and Choking, subsequent encounter T17.308D [place] [address] [address] Dec, Morbid obesity E66.01 [place] [address] [address] Dec, Major depressive disorder, r ecurrent episode, moderate F33.1 and Panic disorder without agoraphobia F41.0 [place] [address] [address] Dec, [place] [address] [address] Dec, Major depressive disorder, r ecurrent episode, moderate F33.1 [place] [address] [address] Nov, Major depressive disorder, r ecurrent episode, moderate F33.1 ; Panic disorder without agoraphobia F41.0 and Morbid obesity E66.01 [place] [address] [place] [id number] [place] [address] Nov, Morbid obesity E66.01 [facility] [address] [facility] [id number] [address] [place] [address] Nov, Major depressive disorder, r ecurrent episode, moderate F33.1 and Panic disorder without agoraphobia F41.0 [facility] [address] [facility] [id number] [address] [place] [address] Nov, Allergic reaction, initial e ncounter T78.40XA and Morbid obesity E66.01 [place] [address] [place] [id number] [place] [address] Nov, [place] [address] [address] Nov, Morbid obesity E66.01 ; Swal lowing problem R13.10 and Hypertension, benign I10 [facility] [address] [place] [id number] [place] [address] Nov, Morbid obesity E66.01 ; COPD exacerbation J44.1 and Non- recurrent acute suppurative otitis media of left ear without spontaneous rupture of tympanic membrane H66.002 [place] [address] [address] Nov, Onychomycosis B35.1 ; Neurop athy G62.9 and Fissure in skin of foot R23.4 [place] [address] [place] [address] October, Major depressive disorder, r ecurrent episode, moderate F33.1 ; Panic disorder without agoraphobia F41.0 and Morbid obesity E66.01 [facility] [address] [facility] [id number] [address] [place] [id number] October, Viral upper respiratory trac t infection J06.9 [facility] [address] [place] [id number] [place] [id number] October, [place] [address] [place] [id number] [place] [phone] October, Major depressive disorder, r ecurrent episode, moderate F33.1 and Panic disorder without agoraphobia F41.0 [facility] [address] [id number] [address] [place] [id number] October, [facility] [address] [id number] [address] [place] [id number] October, [facility] [address] [facility] [id number] [address] [place] [id number] October, [facility] [address] [id number] [address] [place] [address] October, [facility] [address] [facility] [id number] [address] [place] [address] October, [facility] [address] [facility] [id number] [address] [place] [id number] October, [facility] [address] [facility] [id number] [address] [place] [phone] October, Major depressive disorder, r ecurrent episode, moderate F33.1 and Panic disorder without agoraphobia F41.0 [facility] [address] [facility] [id number] [address] [place] [address] Sep, Morbid obesity E66.01 and Vane mbar neuritis M54.16 [facility] [address] [facility] [id number] [address] [place] [id number] Sep, Panic disorder without agora phobia F41.0 and Major depressive disorder, recurrent episode, moderate F33.1 [facility] [address] [facility] [id number] [address] [place] [address] Sep, Gastroenteritis K52.9 ; Low back pain M54.5 ; Other chronic pain G89.29 and Morbid obesity E66.01 [facility] [address] [facility] [id number] [address] [place] [id number] Sep, Major depressive disorder, r ecurrent episode, moderate F33.1 ; Panic disorder without agoraphobia F41.0 and Social phobia F40.10 [place] [address] [address] Sep, Panic disorder without agora phobia F41.0 [place] [address] [address] Sep, Panic disorder without agora phobia F41.0 [place] [address] [address] Aug, Panic disorder without agora phobia F41.0 ; Major depressive disorder, recurrent episode, moderate F33.1 ; Social phobia F40.10 ; Psychotic disorder F29 ; Tardive dyskinesia G24.01 and Morbid obesity E66.01 [place] [address] [address] Aug, Dysthymic disorder F34.1 and Psychotic disorder F29 [place] [address] [address] Aug, Encounter for Medicare annua l wellness exam Z00.00 ; Morbid obesity E66.01 and 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 [place] [address] [address] Aug, Dysthymic disorder F34.1 and Psychotic disorder F29 [place] [address] [address] Aug, Neuropathy G62.9 ; Onychomyc osis B35.1 and Xerosis of skin L85.3 [place] [address] [address] Jul, [place] [address] [address] Jul, Mood disorder F39 ; Wheezing R06.2 ; Choking, initial encounter T17.308A and Coughing R05 [place] [address] [place] [address] 07 Jul, 2018 Low back pain M54.5 [facility] [address] [address] Jun, Flu-like symptoms R68.89 ; B RI 45.0-49.9, adult Z68.42 ; COPD exacerbation J44.1 and Acute bronchitis J20.9 [place] [address] [address] Jun, [place] [address] [address] May, [place] [address] [address] May, Onychomycosis B35.1 and 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.610 [place] [address] [address] May, Low back pain M54.5 and Abdoulaye a leg R60.0 [place] [address] [address] 11 May, 2018 BMI 45.0-49.9, adult Z68.42 ; Well woman exam with routine gynecological exam Z01.419 and Breast cancer screening Z12.[address] [address] Apr, Arthritis M19.90 [place] [address] [address] 16 Apr, 2018 Arthritis M19.90 and Otalgia of both ears H92.03 [place] [address] [address] Feb, [place] [address] [address] Feb, Low back pain M54.5 ; Other chronic pain G89.29 ; Exertional asthma J45.990 and Encounter for immunization Z23 [facility] [address] [place] [address] Feb, Skin fissures R23.4 ; Neurop athy G62.9 and Onychomycosis B35.1 [place] [address] [facility] [id number] [address] [place] [address] Feb, Dysthymic disorder F34.1 [place] [address] [address] Feb, [place] [address] [address] Jan, [place] [address] [address] Jan, Abrasion of right elbow, ini tial encounter S50.311A ; Abrasion, right knee, initial encounter S80.211A and Sprain of other ligament of right ankle, initial encounter S93.491A [place] [address] [place] [id number] [address] [place] [address] Jan, [facility] [address] [address] Jan, Injury of left ankle, initia l encounter S99.912A ; Fall down stairs, initial encounter W10.8XXA and BMI 45.0-49.9, adult Z68.42 [place] [address] [place] [address] Jan, COPD exacerbation J44.1 [place] [address] [address] Jan, 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 [place] [address] [place] [id number] [place] [address] Jan, Bronchitis J40 and Acute sup purative otitis media of left ear without spontaneous rupture of tympanic membrane, recurrence not specified H66.002 [place] [address] [place] [address] Jan, [facility] [address] [place] [id number] [place] [address] Jan, Bronchitis J40 and BMI 40.0- 44.9, adult Z68.41 [place] [address] [place] [id number] [place] [address] Jan, [facility] [address] [place] [id number] [place] [address] Dec, Gastric pain R10.9 [place] [address] [place] [id number] [place] [address] Dec, [facility] [address] [place] [id number] [place] [address] Dec, History of illicit drug use Z87.898 ; Neuropathy G62.9 ; COPD (chronic obstructive pulmonary disease) with chronic bronchitis J44.9 and Acute pain of right knee M25.561 [place] [address] [address] Nov, [place] [address] [address] Nov, Onychomycosis B35.1 and Cont usion of left foot, subsequent encounter S90.32XD [place] [address] [address] Nov, COPD exacerbation J44.1 [place] [address] [place] [id number] [place] [address] Sep, [place] [address] [place] [id number] [place] [address] Sep, Dysthymic disorder F34.1 ; T obacco abuse Z72.0 ; Pain in right knee M25.561 ; Pain in left knee M25.562 ; Other chronic pain G89.29 and BMI 40.0- 44.9, adult Z68.41 [place] [address] [place] [id number] [place] [address] 22 Aug, 2017 Major depressive disorder, r ecurrent episode, moderate F33.1 and Social phobia F40.10 [place] [address] [place] [id number] [place] [address] 14 Aug, 2017 Dysthymic disorder F34.1 ; N on-pressure chronic ulcer of left thigh, unspecified ulcer stage L97.129 ; Tobacco abuse Z72.0 ; Mild chronic obstructive pulmonary disease J44.9 and Forgetfulness R68.89 [place] [address] [address] 09 Aug, 2017 Onychomycosis B35.1 ; Fissur e in skin of foot R23.4 and Foot callus L84 [facility] [place] [address] [address] 26 Jul, 2017 Right medial knee pain M25.5 61 ; Upper respiratory tract infection, unspecified type J06.9 and BMI 40.0-44.9, adult Z68.41 [facility] [place] [address] [address] 08 Jul, 2017 Nausea and vomiting, intract ability of vomiting not specified, unspecified vomiting type R11.2 ; Left ear pain H92.02 and Gastric pain R10.9 [place] [address] [place] [id number] [address] [place] [address] Apr, Encounter for immunization Z 23 [place] [address] [place] [id number] [place] [address] Apr, Onychomycosis B35.1 ; Xerosi s of skin L85.3 ; Neuropathy G62.9 and 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 [place] [address] [place] [id number] [place] [address] Jan, Onychomycosis B35.1 and Neur opathy G62.9 [place] [address] [place] [id number] [place] [address] Dec, [facility] [address] [id number] [address] [place] [id number] Dec, [facility] [address] [id number] [address] [place] [address] Nov, [facility] [address] [id number] [address] [place] [id number] Aug, [facility] [address] [id number] [address] [place] [id number] Aug, [facility] [address] [id number] [address] [place] [address] Jul, [facility] [address] [id number] [address] [place] [address] Jul, [facility] [address] [facility] [id number] [address] [place] [address] Jul, Decubitus ulcer of left thig h, stage 2 L89.892 [facility] [address] [id number] [address] [place] [id number] Jul, Decubitus ulcer of left thig h, stage 2 L89.892 [facility] [address] [facility] [id number] [address] [place] [id number] 17 Jul, 2016 [facility] [address] [id number] [address] [place] [id number] 15 Jul, 2016 Decubitus ulcer of left thig h, stage 2 L89.892 [facility] [address] [id number] [address] [place] [address] 14 Jul, 2016 [facility] [address] [facility] [id number] [address] [place] [address] 13 Jul, 2016 Cellulitis of other specifie d site L03.818 ; Illicit drug use F19.90 and Decubitus ulcer of left thigh, stage 2 L89.892 [facility] [address] [facility] [id number] [address] [place] [id number] Jul, [facility] [address] [facility] [id number] [address] [place] [id number] Jul, Cellulitis of right breast N 61.0 [facility] [address] [facility] [id number] [address] [place] [id number] Jun, [facility] [address] [facility] [id number] [address] [place] [id number] Jun, [facility] [address] [facility] [id number] [address] [place] [id number] Jun, Wheezing R06.2 and Arthralgi a, unspecified joint M25.50 [place] [address] [place] [id number] [place] [id number] May, [place] [address] [place] [id number] [place] [id number] May, [place] [address] [place] [id number] [place] [id number] May, [place] [address] [place] [id number] [place] [address] May, Shortness of breath R06.02 [place] [address] [place] [id number] [place] [id number] May, Onychomycosis B35.1 and Fiss ure in skin of foot R23.4 [facility] [address] [facility] [id number] [address] [place] [id number] 28 Apr, 2016 [facility] [address] [facility] [id number] [address] [place] [id number] 18 Apr, 2016 Dizziness R42 [place] [address] [facility] [id number] [address] [place] [address] 14 Apr, 2016 Shortness of breath R06.02 ; Essential hypertension I10 ; Dizziness R42 and On home oxygen therapy Z99.81 [facility] [address] [id number] [address] [place] [id number] Apr, [facility] [address] [id number] [address] [place] [id number] Apr, [facility] [address] [id number] [address] [place] [id number] Apr, [facility] [address] [id number] [address] [place] [phone] Apr, [facility] [address] [id number] [address] [place] [id number] Apr, [facility] [address] [id number] [address] [place] [id number] Apr, [facility] [address] [id number] [address] [place] [id number] Apr, [facility] [address] [id number] [address] [place] [id number] Mar, Mild chronic obstructive pul monary disease J44.9 [facility] [address] [id number] [address] [place] [id number] Mar, [facility] [address] [id number] [address] [place] [phone] Mar, Epigastric pain R10.13 ; Low back pain M54.5 ; Other chronic pain G89.29 and Breast cancer screening Z12.39 [facility] [address] [id number] [address] [place] [id number] Mar, [facility] [address] [id number] [address] [place] [id number] Mar, [facility] [address] [id number] [address] [place] [phone] Feb, [facility] [address] [id number] [address] [place] [id number] Feb, [place] [address] [place] [id number] [address] [place] [id number] 02 Feb, 2016 Fissure in skin of foot R23. 4 and Onychomycosis B35.1 [place] [address] [place] [id number] [address] [place] [address] Jan, Agoraphobia F40.00 [place] [address] [place] [id number] [address] [place] [address] Dec, Agoraphobia F40.00 [place] [address] [place] [id number] [place] [address] Dec, Mild persistent asthma witho ut complication J45.30 ; Dysthymic disorder F34.1 and Upper respiratory tract infection, unspecified type J06.9 [place] [address] [address] Nov, Agoraphobia F40.00 [place] [address] [place] [id number] [address] [place] [address] October, Agoraphobia F40.00 [place] [address] [address] Sep, Panic disorder without agora phobia F41.0 ; Agoraphobia F40.00 and Dysthymic disorder F34.1 [place] [address] [place] [id number] [address] [place] [address] Sep, Panic attacks F41.0 [place] [address] [place] [id number] [address] [place] [address] Sep, [place] [address] [address] Sep, Panic disorder without agora phobia F41.0 ; Varicose veins of both lower extremities I83.93 and Fatigue R53.83 [place] [address] [place] [id number] [address] [place] [address] 14 Apr, 2016 Fatigue R53.83 [place] [address] [place] [id number] [address] [place] [address] Sep, [place] [address] [address] Aug, [place] [address] [address] Aug, [place] [address] [address] Aug, Type 2 diabetes mellitus wit h diabetic neuropathic arthropathy E11.610 [place] [address] [address] Aug, Panic disorder without agora phobia F41.0 ; Agoraphobia F40.00 and Dysthymic disorder F34.1 [place] [address] [address] Aug, Shortness of breath R06.02 ; Panic attacks F41.0 ; COPD (chronic obstructive pulmonary disease) J44.9 ; Tobacco abuse Z72.0 ; Family history of diabetes mellitus Z83.3 and Weight gain R63.5 [place] [address] [address] Aug, [place] [address] [address] Jul, [place] [address] [address] Jun, Onychomycosis B35.1 ; Neurop athy G62.9 and Impaired circulation I99.[address] [address] 09 Mar, 2015 Fissure in skin of foot R23. 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 [place] [address] [place] [id number] [address] [place] [address] Feb, Family history of coronary a rteriosclerosis V17.3 [facility] [address] [id number] [address] [place] [address] 15 Feb, 2015 Allergic rhinitis due to darien agnieszka 477.0 ; Unspecified breast screening V76.10 ; Anxiety 300.00 and Family history of coronary arteriosclerosis V17.3 [facility] [address] [id number] [address] [place] [address] Jan, [facility] [address] [id number] [address] [place] [address] Dec, [facility] [address] [id number] [address] [place] [address] Dec, Onychomycosis 110.1 and Skin fissures 709.8 [facility] [address] [id number] [address] [place] [address] Sep, [facility] [address] [id number] [address] [place] [address] Sep, [facility] [address] [id number] [address] [place] [address] Aug, [facility] [address] [id number] [address] [place] [address] Aug, [facility] [address] [id number] [address] [place] [address] Jul, [facility] [address] [id number] [address] [place] [address] Jul, [facility] [address] [id number] [address] [place] [address] Jun, [facility] [address] [id number] [address] [place] [address] Jun, [facility] [address] [id number] [address] [place] [address] Jun, [facility] [address] [id number] [address] [place] [address] [place] [address] Jun, [facility] [address] [id number] [address] [place] [address], [place] [address] Jun, [facility] [address] [id number] [address] [place] [address], [place] [address] May, [facility] [address] [id number] [address] [place] [address], [place] [address] May, [facility] [address] [id number] [address] [place] [address], [place] [address] May, [facility] [address] [id number] [address] [place] [address], [place] [address] May, [facility] [address] [id number] [address] [place] [address], [place] [address] May, [facility] [address] [id number] [address] [place] [address], [place] [address] May, [facility] [address] [id number] [address] [place] [address], [place] [address] May, [facility] [address] [id number] [address] [place] [address], [place] [address] May, [facility] [address] [id number] [address] [place] [address], [place] [address] Apr, [facility] [address] [id number] [address] [place] [address], [place] [address] Apr, [facility] [address] [id number] [address] [place] [address], [place] [address] Apr, [facility] [address] [id number] [address] [place] [address], [place] [address] Apr, [facility] [address] [id number] [address] [place] [address], [place] [address] Apr, [facility] [address] [id number] [address] [place] [address], [place] [address] Apr, [facility] [address] [id number] [address] [place] [address], [place] [address] 07 Apr, 2014 [facility] [address] [id number] [address] [place] [address], [place] [address] Apr, [facility] [address] [id number] [address] [place] [address], [place] [address] Apr, [facility] [address] [id number] [address] [place] [address], [place] [address] Apr, [facility] [address] [id number] [address] [place] [address], [place] [address] Mar, [facility] [address] [id number] [address] [place] [address], [place] [address] Mar, [facility] [address] [id number] [address] [place] [address], [place] [address] Mar, [facility] [address] [id number] [address] [place] [address], [place] [address] Mar, [facility] [address] [id number] [address] [place] [address], [place] [address] Mar, [facility] [address] [id number] [address] [place] [address], [place] [address] Mar, [facility] [address] [id number] [address] [place] [address], [place] [address] Mar, [facility] [address] [id number] [address] [place] [address], [place] [address] Mar, [facility] [address] [id number] [address] [place] [address], [place] [address] Mar, [facility] [address] [id number] [address] [place] [address], [place] [address] Mar, [facility] [address] [id number] [address] [place] [address], [place] [address] Mar, [facility] [address] [id number] [address] [place] [address], [place] [address] Mar, [facility] [address] [id number] [address] [place] [address], [place] [address] 22 Mar, 2013 [facility] [address] [id number] [address] [place] [address], [place] [address] 22 Mar, 2014 [facility] [address] [id number] [address] [place] [address], [place] [address] 22 Mar, 2014 [facility] [address] [id number] [address] [place] [address], [place] [address] 20 Mar, 2013 [facility] [address] [id number] [address] [place] [address], [place] [address] 20 Mar, 2014 [facility] [address] [id number] [address] [place] [address], [place] [address] 16 Mar, 2013 [facility] [address] [id number] [address] [place] [address], [place] [address] 16 Mar, 2013 [facility] [address] [id number] [address] [place] [address] 15 Mar, 2013 [facility] [address] [id number] [address] [place] [address], [place] [address] 14 Mar, 2014 [facility] [address] [id number] [address] [place] [address] 14 Mar, 2013 [facility] [address] [id number] [address] [place] [address] 14 Mar, 2013 [facility] [address] [id number] [address] [place] [address] 14 Mar, 2013 [facility] [address] [id number] [address] [place] [address], [place] [address] 09 Mar, 2014 [facility] [address] [id number] [address] [place] [address] 09 Mar, 2013 [facility] [address] [id number] [address] [place] [address] 09 Mar, 2013 [facility] [address] [id number] [address] [place] [address], [place] [address] 09 Mar, 2013 [facility] [address] [id number] [address] [place] [address], [place] [address] 30 Sep, 2013 [facility] [address] [id number] [address] [place] [address], [place] [address] 30 Sep, 2013 [facility] [address] [id number] [address] [place] [address], [place] [address] 30 Sep, 2013 [facility] [address] [id number] [address] [place] [address], [place] [address] 30 Feb, 2013 [facility] [address] [id number] [address] [place] [address], [place] [address] Feb, 2013 [facility] [address] [id number] [address] [place] [address], [place] [address] Feb, 2013 [facility] [address] [id number] [address] [place] [address], [place] [address] 09 Feb, 2013 [facility] [address] [id number] [address] [place] [address], [place] [address] 09 Feb, 2013 [facility] [address] [id number] [address] [place] [address], [place] [address] Feb, 2013 [facility] [address] [id number] [address] [place] [address], [place] [address] Feb, 2013 [facility] [address] [id number] [address] [place] [address], [place] [address] Feb, 2013 [facility] [address] [id number] [address] [place] [address], [place] [address] Feb, 2013 [facility] [address] [id number] [address] [place] [address], [place] [address] Jan, [facility] [address] [id number] [address] [place] [address], [place] [address] Jan, [facility] [address] [id number] [address] [place] [address], [place] [address] Jan, [facility] [address] [id number] [address] [place] [address], [place] [address] Jan, [facility] [address] [id number] [address] [place] [address], [place] [address] Jan, [facility] [address] [id number] [address] [place] [address], [place] [address] Jan, [facility] [address] [id number] [address] [place] [address], [place] [address] Jan, [facility] [address] [id number] [address] [place] [address], [place] [address] Jan, [facility] [address] [id number] [address] [place] [address], [place] [address] Jan, [facility] [address] [id number] [address] [place] [address], [place] [address] Jan, [facility] [address] [id number] [address] [place] [address], [place] [address] Jan, [facility] [address] [id number] [address] [place] [address], [place] [address] Jan, [facility] [address] [id number] [address] [place] [address], [place] [address] Jan, [facility] [address] [id number] [address] [place] [address], [place] [address] Dec, [facility] [address] [id number] [address] [place] [address], [place] [address] Dec, [facility] [address] [id number] [address] [place] [address], [place] [address] Dec, [facility] [address] [id number] [address] [place] [address], [place] [address] Dec, [facility] [address] [id number] [address] [place] [address], [place] [address] Dec, [facility] [address] [id number] [address] [place] [address], [place] [address] Dec, [facility] [address] [id number] [facility] [address] Dec, 2013 [facility] [address] [id number] [address] [place] [address], [place] [address] Dec, 2013 [facility] [address] [id number] [address] [place] [address], [place] [address] Dec, 2013 [facility] [address] [id number] [address] [place] [address], [place] [address] Dec, 2013 [facility] [address] [id number] [address] [place] [address], [place] [address] Dec, [facility] [address] [id number] [address] [place] [address], [place] [address] Dec, 2013 [facility] [address] [id number] [address] [place] [address], [place] [address] Dec, [facility] [address] [id number] [address] [place] [address], [place] [address] Dec, [facility] [address] [id number] [address] [place] [address], [place] [address] Dec, [facility] [address] [id number] [address] [place] [address], [place] [address] Dec, [facility] [address] [id number] [address] [place] [address], [place] [address] Dec, [facility] [address] [id number] [address] [place] [address], [place] [address] Dec, [facility] [address] [id number] [address] [place] [address], [place] [address] Nov, [facility] [address] [id number] [address] [place] [address], [place] [address] Nov, [facility] [address] [id number] [address] [place] [address], [place] [address] Nov, [facility] [address] [id number] [facility] [address] 24 Nov, 2013 [facility] [address] [id number] [facility] [address] Nov, [facility] [address] [id number] [facility] [address] Nov, [facility] [address] [id number] [facility] [address] Nov, [facility] [address] [id number] [facility] [address] Nov, [facility] [address] [id number] [address] [place] [address], [place] [address] Nov, [facility] [address] [id number] [address] [place] [address], [place] [address] Nov, [facility] [address] [id number] [address] [place] [address], [place] [address] Nov, [facility] [address] [id number] [address] [place] [address], [place] [address] Nov, [facility] [address] [id number] [address] [place] [address], [place] [address] Nov, [facility] [address] [id number] [address] [place] [address], [place] [address] Nov, [facility] [address] [id number] [address] [place] [address], [place] [address] Nov, [facility] [address] [id number] [address] [place] [address], [place] [address] Nov, [facility] [address] [id number] [address] [place] [address], [place] [address] Nov, [facility] [address] [id number] [address] [place] [address], [place] [address] Nov, [facility] [address] [id number] [address] [place] [address], [place] [address] Nov, [facility] [address] [id number] [address] [place] [address], [place] [address] Nov, [facility] [address] [id number] [address] [place] [address], [place] [address] October, [facility] [address] [id number] [address] [place] [address], [place] [address] October, [facility] [address] [id number] [address] [place] [address], [place] [address] October, [facility] [address] [id number] [address] [place] [address], [place] [address] October, [facility] [address] [id number] [address] [place] [address], [place] [address] Sep, [facility] [address] [id number] [address] [place] [address], [place] [address] Sep, [facility] [address] [id number] [address] [place] [address], [place] [address] Sep, [facility] [address] [id number] [address] [place] [address], [place] [address] Sep, [facility] [address] [id number] [address] [place] [address], [place] [address] Sep, [facility] [address] [id number] [address] [place] [address], [place] [address] Sep, [facility] [address] [id number] [address] [place] [address], [place] [address] Sep, [facility] [address] [id number] [address] [place] [address], [place] [address] Sep, [facility] [address] [id number] [address] [place] [address], [place] [address] Sep, [facility] [address] [id number] [address] [place] [address], [place] [address] Aug, [facility] [address] [id number] [address] [place] [address], [place] [address] Aug, [facility] [address] [id number] [address] [place] [address], [place] [address] Aug, [facility] [address] [id number] [address] [place] [address], [place] [address] Aug, [facility] [address] [id number] [address] [place] [address], [place] [address] Aug, [facility] [address] [id number] [address] [place] [address], [place] [address] Aug, [facility] [address] [id number] [address] [place] [address], [place] [address] Aug, [facility] [address] [id number] [address] [place] [address], [place] [address] Aug, [facility] [address] [id number] [address] [place] [address], [place] [address] Jul, [facility] [address] [id number] [address] [place] [address], [place] [address] Jul, [facility] [address] [id number] [address] [place] [address], [place] [address] Jun, [facility] [address] [id number] [address] [place] [address], [place] [address] Jun, [facility] [address] [id number] [address] [place] [address], [place] [address] Jun, [facility] [address] [id number] [address] [place] [address], [place] [address] Jun, [facility] [address] [id number] [address] [place] [address], [place] [address] Jun, [facility] [address] [id number] [address] [place] [address], [place] [address] Jun, [facility] [address] [id number] [address] [place] [address], [place] [address] Jun, [facility] [address] [id number] [address] [place] [address], [place] [address] 15 Jun, 2013 [facility] [address] [id number] [address] [place] [address], [place] [address] 15 Jun, 2013 [facility] [address] [id number] [address] [place] [address], [place] [address] 14 Jun, 2013 [facility] [address] [id number] [address] [place] [address], [place] [address] Jun, [facility] [address] [id number] [address] [place] [address], [place] [address] Jun, [facility] [address] [id number] [address] [place] [address], [place] [address] May, [facility] [address] [id number] [address] [place] [address], [place] [address] May, [facility] [address] [id number] [address] [place] [address], [place] [address] May, [facility] [address] [id number] [address] [place] [address], [place] [address] May, [facility] [address] [id number] [address] [place] [address], [place] [address] May, [facility] [address] [id number] [address] [place] [address], [place] [address] May, [facility] [address] [id number] [address] [place] [address], [place] [address] 26 May, 2013 [facility] [address] [id number] [address] [place] [address], [place] [address] 23 May, 2013 [facility] [address] [id number] [address] [place] [address], [place] [address] 23 May, 2013 [facility] [address] [id number] [address] [place] [address], [place] [address] 16 May, 2013 [facility] [address] [id number] [address] [place] [address], [place] [address] May, [facility] [address] [id number] [address] [place] [address], [place] [address] May, [facility] [address] [id number] [address] [place] [address], [place] [address] May, [facility] [address] [id number] [address] [place] [address], [place] [address] Apr, [facility] [address] [id number] [address] [place] [address], [place] [address] Apr, [facility] [address] [id number] [address] [place] [address], [place] [address] Mar, [facility] [address] [id number] [address] [place] [address], [place] [address] Mar, [facility] [address] [id number] [address] [place] [address], [place] [address] Feb, [facility] [address] [id number] [address] [place] [address], [place] [address] Feb, [facility] [address] [id number] [address] [place] [address], [place] [address] Feb, [facility] [address] [id number] [address] [place] [address], [place] [address] Feb, [facility] [address] [id number] [address] [place] [address], [place] [address] Jan, [facility] [address] [id number] [address] [place] [address], [place] [address] Jan, [facility] [address] [id number] [address] [place] [address], [place] [address] Jan, [facility] [address] [id number] [address] [place] [address], [place] [address] Jan, [facility] [address] [id number] [address] [place] [address], [place] [address] Jan, [facility] [address] [id number] [address] [place] [address], [place] [address] Jan, [facility] [address] [id number] [address] [place] [address], [place] [address] Dec, [facility] [address] [id number] [address] [place] [address], [place] [address] Dec, [facility] [address] [id number] [address] [place] [address], [place] [address] Dec, [facility] [facility] [address] [id number] [address] [place] [address], [place] [address] Dec, [facility] [address] [id number] [address] [place] [address], [place] [address] Nov, [facility] [address] [id number] [address] [place] [address], [place] [address] October, [facility] [address] [id number] [address] [place] [address], [place] [address] October, [facility] [address] [id number] [address] [place] [address], [place] [address] October, [facility] [address] [id number] [address] [place] [address], [place] [address] Sep, [facility] [address] [id number] [address] [place] [address], [place] [address] Sep, [facility] [address] [id number] [address] [place] [address], [place] [address] Jun, [facility] [address] [id number] [address] [place] [address], [place] [address] Jun, [facility] [address] [id number] [address] [place] [address], [place] [address] Jun, [facility] [address] [id number] [address] [place] [address], [place] [address] Apr, [facility] [address] [id number] [address] [place] [address], [place] [address] Apr, [facility] [address] [id number] [address] [place] [address], [place] [address] Apr, [facility] [address] [id number] [address] [place] [address], [place] [address] Apr, [facility] [address] [id number] [address] [place] [address], [place] [address] Mar, [facility] [address] [id number] [address] [place] [address], [place] [address] Mar, [facility] [address] [id number] [address] [place] [address], [place] [address] Mar, [facility] [address] [id number] [address] [place] [address], [place] [address] Mar, [facility] [address] [id number] [address] [place] [address], [place] [address] Feb, [facility] [address] [id number] [address] [place] [address], [place] [address] Feb, [facility] [address] [id number] [address] [place] [address], [place] [address] Feb, [facility] [address] [id number] [address] [place] [address], [place] [address] Jan, [facility] [address] [id number] [address] [place] [address], [place] [address] Jan, [facility] [address] [id number] [address] [place] [address] Jan, [facility] [address] [id number] [address] [place] [address], [place] [address] Jan, [facility] [address] [id number] [address] [place] [address], [place] [address] Dec, [facility] [address] [id number] [address] [place] [address], [place] [address] Dec, [facility] [address] [id number] [address] [place] [address], [place] [address] Nov, [facility] [address] [id number] [address] [place] [address], [place] [address] Nov, [facility] [address] [id number] [address] [place] [address], [place] [address] October, [facility] [address] [id number] [address] [place] [address], [place] [address] October, [facility] [address] [id number] [address] [place] [address], [place] [address] October, [facility] [address] [id number] [address] [place] [address], [place] [address] Sep, [facility] [address] [id number] [address] [place] [address], [place] [address] Sep, [facility] [address] [id number] [address] [place] [address], [place] [address] Sep, [facility] [address] [id number] [address] [place] [address], [place] [address] Aug, [facility] [address] [id number] [address] [place] [address], [place] [address] Aug, [facility] [address] [id number] [address] [place] [address], [place] [address] Aug, [facility] [address] [id number] [address] [place] [address], [place] [address] Aug, [facility] [address] [id number] [address] [place] [address], [place] [address] Aug, [facility] [address] [id number] [address] [place] [address], [place] [address] 23 Jul, 2011 [facility] [address] [id number] [address] [place] [address], [place] [address] 16 Jul, 2011 [facility] [address] [id number] [address] [place] [address], [place] [address] 13 Jul, 2011 [facility] [address] [id number] [address] [place] [address], [place] [address] Jul, [facility] [address] [id number] [address] [place] [address], [place] [address] Jul, [facility] [address] [id number] [address] [place] [address], [place] [address] Jul, [facility] [address] [id number] [address] [place] [address], [place] [address] Jul, [facility] [address] [id number] [address] [place] [address], [place] [address] Jul, [facility] [address] [id number] [address] [place] [address], [place] [address] Jun, [facility] [address] [id number] [address] [place] [address], [place] [address] Jun, [facility] [address] [id number] [address] [place] [address], [place] [address] May, [facility] [address] [id number] [address] [place] [address], [place] [address] May, [facility] [address] [id number] [address] [place] [address] May, [facility] [address] [id number] [address] [place] [address] May, [facility] [address] [id number] [address] [place] [address] Apr, [facility] [address] [id number] [address] [place] [address], [place] [address] Apr, [facility] [address] [id number] [address] [place] [address], [place] [address] Apr, [facility] [address] [id number] [address] [place] [address] Mar, [facility] [address] [id number] [address] [place] [address], [place] [address] 18 Mar, 2011 [facility] [address] [id number] [address] [place] [address], [place] [address] 18 Mar, 2011 [facility] [address] [id number] [address] [place] [address], [place] [address] 2011 [facility] [address] [id number] [address] [place] [address], [place] [address] Dec, [facility] [address] [id number] [address] [place] [address], [place] [address] October, [facility] [address] [id number] [address] [place] [address], [place] [address] 28 May, 2010 [facility] [address] [id number] [address] [place] [address], [place] [address] 13 May, 2010 [facility] [address] [id number] [address] [place] [address], [place] [address] 13 May, 2010 [facility] [address] [id number] [address] [place] [address], [place] [address] 06 May, 2010 [facility] [address] [id number] [address] [place] [address], [place] [address] 26 Mar, 2010 [facility] [address] [id number] [address] [place] [address], [place] [address] 25 Mar, 2010 [facility] [address] [id number] [address] [place] [address], [place] [address] 31 May, 2009 [facility] [address] [id number] [address] [place] [address], [place] [address] 30 May, 2009 [facility] [address] [id number] [address] [place] [address], [place] [address] 08 May, 2009 [facility] [address] [id number] [address] [place] [address], [place] [address] 08 May, 2009 [facility] [address] [id number] [address] [place] [address], [place] [address] Apr, [facility] [address] [id number] [address] [address] Apr, [facility] [address] [facility] [id number] [address] [address] October, IMMUNIZATIONS No Known Immunizations SOCIAL HISTORY Never Assessed REASON FOR VISIT PLAN OF CARE VITAL SIGNS Blood pressure systolic 122 mmHg 2014-04-17 Blood pressure diastolic 72 mmHg 2014-04-17 MEDICATIONS Unknown Medications RESULTS No Results PROCEDURES Procedure Date Ordered Result Body Site DEBRIDE NAIL, 6 OR MORE Apr 17, 2014 INSTRUCTIONS MEDICATIONS ADMINISTERED No Known Medications [...]
--- OUTSIDE RECORDS SUMMARY | 2020-01-13 11:46 | XMS REPORT ---
Author Author Monique RAHMAN [facility] Address [address] [place] [address] Care Team Providers Care Industrial Safety And Health Manager Name Role Phone RASHEED RAHMAN Unavailable PROBLEMS Type Condition ICD9-CM Code DRN36-SI Code Onset Dates Condition S tatus SNOMED Code Problem History of illicit drug use Z87.898 Ac tive 526019602 Problem Snoring R06.83 Active 34588799 Problem Impaired circulation I99.9 Active 64191571 Problem MRSA (methicillin resistant staph aureus) culture positive Z22.322 Active 945871218 Problem Panic disorder without agoraphobia F41.0 Active 80095916 Problem Dysthymic disorder F34.1 Active 7 5885584 Problem Mood disorder F39 Active 155558 05 Problem Arthritis M19.90 Active 7487861 Problem Mild chronic obstructive pulmonary disease J44.9 Active 945643468 Problem Mild persistent asthma without complication J45.30 Active 209013998 Problem Essential hypertension I10 Active 11170720 Problem On home oxygen therapy Z99.81 Active 505564927064 Problem Social phobia F40.10 Active 979763 02 Problem Neuropathy G62.9 Active 321211214 Problem 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 Active 408186381 Problem Major depressive disorder, recurrent episode, moderate F33.1 Active 468637314 Problem Psychotic disorder F29 Active 6 3544788 Problem Hypertension, benign I10 Active 37482763 Problem Onychomycosis B35.1 Active 416181 008 Problem Body mass index (BMI) 40.0-44.9, adult Z68.41 Active 713289635 Problem Varicose veins of both lower extremities I83.93 Active 81205000 Problem Sciatica, left side M54.32 Active 26141647 Problem Agoraphobia F40.00 Active 66625232 Problem Fatigue R53.83 Active 13876752 Problem Major depressive disorder in full remission F32.5 Active 45610392 Problem Slow transit constipation K59.01 Acti ve 73659772 Problem Chronic obstructive pulmonary disease, unspecified COPD ty pe J44.9 Active 53416694 Problem Unspecified psychosis not du e to a substance or known physiological condition F29 Active 746806322 ALLERGIES No Information ENCOUNTERS Encounter Location Date Diagnosis [place] [address] [address] Nov, [place] [address] [address] Sep, Abdominal pain, right upper quadrant R10.11 [place] [address] [address] Sep, Major depressive disorder, r ecurrent episode, moderate F33.1 ; Panic disorder without agoraphobia F41.0 and Morbid obesity E66.01 [place] [address] [address] Aug, Bronchitis J40 [place] [address] [address] Aug, Sciatica, left side M54.32 a nd Morbid obesity E66.01 [place] [address] [address] Aug, [place] [address] [address] Aug, Sciatica, left side M54.32 [place] [address] [address] Aug, Neuropathy G62.9 ; Onychomyc osis B35.1 ; Callus of foot L84 and Skin fissures R23.4 [place] [address] [address] [place] [id number] [place] [address] Jul, [place] [address] [address] Jul, Morbid obesity E66.01 [place] [address] [address] [place] [id number] [place] [address] Jul, Unspecified psychosis not du e to a substance or known physiological condition F29 ; Chronic obstructive pulmonary disease, unspecified COPD type J44.9 and Body mass index (BMI) 40.0-44.9, adult Z68.41 [place] [address] [address] Jun, [place] [address] [address] Jun, Morbid obesity E66.01 [place] [address] [address] May, Morbid obesity E66.01 [place] [address] [address] May, Encounter for immunization Z 23 [place] [address] [address] May, Major depressive disorder, r ecurrent episode, moderate F33.1 ; Panic disorder without agoraphobia F41.0 and Morbid obesity E66.01 [place] [address] [address] May, Major depressive disorder in full remission F32.5 and Panic disorder without agoraphobia F41.0 [place] [address] [place] [id number] [place] [address] Apr, Morbid obesity E66.01 [place] [address] [address] Apr, Slow transit constipation K5 9.01 and Cellulitis of left lower extremity L03.116 [place] [address] [address] [place] [id number] [place] [address] Apr, Morbid obesity E66.01 [place] [address] [address] Apr, [place] [address] [address] Apr, Major depressive disorder, r ecurrent episode, moderate F33.1 and Panic disorder without agoraphobia F41.0 [place] [address] [address] Mar, Viral upper respiratory trac t infection J06.9 [place] [address] [address] Mar, Bronchitis J40 and Encounter for immunization Z23 [address] [address] Mar, Morbid obesity E66.01 [place] [address] [address] Feb, Major depressive disorder, r ecurrent episode, moderate F33.1 and Panic disorder without agoraphobia F41.0 [place] [address] [address] Feb, Morbid obesity E66.01 [place] [address] [address] Feb, Onychomycosis B35.1 ; 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 and Xerosis of skin L85.3 [place] [address] [address] Feb, Major depressive disorder, r ecurrent episode, moderate F33.1 ; Panic disorder without agoraphobia F41.0 and Morbid obesity E66.01 [place] [address] [address] Jan, Major depressive disorder in full remission F32.5 and Panic disorder without agoraphobia F41.0 [place] [address] [address] Jan, Pneumonia of both lower lobe s due to infectious organism J18.1 and Morbid obesity E66.01 [facility] [address] [facility] [id number] [address] [place] [address] Jan, [place] [address] [address] [facility] [id number] [address] [place] [address] Jan, Major depressive disorder in full remission F32.5 and Panic disorder without agoraphobia F41.0 [place] [address] [address] [facility] [id number] [address] [place] [address] Jan, [place] [address] [facility] [id number] [address] [place] [address] Jan, Major depressive disorder, r ecurrent episode, moderate F33.1 ; Panic disorder without agoraphobia F41.0 and Morbid obesity E66.01 [place] [address] [place] [id number] [place] [address] Dec, Bilious vomiting with nausea R11.14 ; Coughing R05 and Choking, subsequent encounter T17.308D [place] [address] [place] [id number] [place] [address] Dec, Morbid obesity E66.01 [place] [address] [facility] [id number] [address] [place] [address] Dec, Major depressive disorder, r ecurrent episode, moderate F33.1 and Panic disorder without agoraphobia F41.0 [place] [address] [facility] [id number] [address] [place] [address] Dec, [place] [address] [facility] [id number] [address] [place] [address] Dec, Major depressive disorder, r ecurrent episode, moderate F33.1 [place] [address] [address] [facility] [id number] [address] [place] [address] Nov, Major depressive disorder, r ecurrent episode, moderate F33.1 ; Panic disorder without agoraphobia F41.0 and Morbid obesity E66.01 [place] [address] [address] 20 Nov, 2018 Morbid obesity E66.01 [place] [address] [address] Nov, Major depressive disorder, r ecurrent episode, moderate F33.1 and Panic disorder without agoraphobia F41.0 [facility] [place] [address] [address] Nov, Allergic reaction, initial e ncounter T78.40XA and Morbid obesity E66.01 [place] [address] [address] Nov, [place] [address] [address] Nov, Morbid obesity E66.01 ; Swal lowing problem R13.10 and Hypertension, benign I10 [facility] WALK IN [place] [address] [address] 07 Nov, 2018 Morbid obesity E66.01 ; COPD exacerbation J44.1 and Non- recurrent acute suppurative otitis media of left ear without spontaneous rupture of tympanic membrane H66.002 [place] [address] [address] 07 Nov, 2018 Onychomycosis B35.1 ; Neurop athy G62.9 and Fissure in skin of foot R23.4 [place] [address] [address] October, Major depressive disorder, r ecurrent episode, moderate F33.1 ; Panic disorder without agoraphobia F41.0 and Morbid obesity E66.01 [facility] WALK IN [place] [address] [address] October, Viral upper respiratory trac t infection J06.9 [place] [address] [address] October, [facility] [address] [facility] [id number] [address] [place] [address] October, Major depressive disorder, r ecurrent episode, moderate F33.1 and Panic disorder without agoraphobia F41.0 [facility] [address] [id number] [address] [place] [address] October, [facility] [address] [facility] [id number] [address] [place] [address] October, [facility] [address] [id number] [address] [place] [address] October, [facility] [address] [facility] [id number] [address] [place] [address] October, [facility] [address] [facility] [id number] [address] [place] [address] October, [facility] [address] [facility] [id number] [address] [place] [address] October, [facility] [address] [facility] [id number] [address] [place] [address] October, Major depressive disorder, r ecurrent episode, moderate F33.1 and Panic disorder without agoraphobia F41.0 [facility] [address] [facility] [id number] [address] [place] [address] Sep, Morbid obesity E66.01 and Vane mbar neuritis M54.16 [facility] [address] [facility] [id number] [address] [place] [address] Sep, Panic disorder without agora phobia F41.0 and Major depressive disorder, recurrent episode, moderate F33.1 [facility] [address] [facility] [id number] [address] [place] [address] Sep, Gastroenteritis K52.9 ; Low back pain M54.5 ; Other chronic pain G89.29 and Morbid obesity E66.01 [facility] [address] [facility] [id number] [address] [place] [address] Sep, Major depressive disorder, r ecurrent episode, moderate F33.1 ; Panic disorder without agoraphobia F41.0 and Social phobia F40.10 [place] [address] [place] [address] Sep, Panic disorder without agora phobia F41.0 [place] [address] [place] [id number] [place] [address] Sep, Panic disorder without agora phobia F41.0 [place] [address] [address] Aug, Panic disorder without agora phobia F41.0 ; Major depressive disorder, recurrent episode, moderate F33.1 ; Social phobia F40.10 ; Psychotic disorder F29 ; Tardive dyskinesia G24.01 and Morbid obesity E66.01 [place] [address] [address] Aug, Dysthymic disorder F34.1 and Psychotic disorder F29 [place] [address] [address] Aug, 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 [place] [address] [place] [id number] [place] [address] Aug, Dysthymic disorder F34.1 and Psychotic disorder F29 [place] [address] [address] Aug, Neuropathy G62.9 ; Onychomyc osis B35.1 and Xerosis of skin L85.3 [place] [address] [place] [id number] [place] [address] Jul, [place] [address] [place] [id number] [place] [address] Jul, Mood disorder F39 ; Wheezing R06.2 ; Choking, initial encounter T17.308A and Coughing R05 [facility] [address] [address] Jul, Low back pain M54.5 [facility] [address] [place] [id number] [place] [address] Jun, Flu-like symptoms R68.89 ; B WA 45.0-49.9, adult Z68.42 ; COPD exacerbation J44.1 and Acute bronchitis J20.9 [place] [address] [address] Jun, [place] [address] [address] May, [place] [address] [address] May, Onychomycosis B35.1 and 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.610 [place] [address] [address] May, Low back pain M54.5 and Abdoulaye a leg R60.0 [place] [address] [address] May, BMI 45.0-49.9, adult Z68.42 ; Well woman exam with routine gynecological exam Z01.419 and Breast cancer screening Z12.31 [place] [address] [address] Apr, Arthritis M19.90 [place] [address] [address] Apr, Arthritis M19.90 and Otalgia of both ears H92.03 [place] [address] [place] [id number] [place] [address] Feb, [place] [address] [address] Feb, Low back pain M54.5 ; Other chronic pain G89.29 ; Exertional asthma J45.990 and Encounter for immunization Z23 [facility] [address] [place] [address] Feb, Skin fissures R23.4 ; Neurop athy G62.9 and Onychomycosis B35.1 [facility] [address] [place] [id number] [place] [address] 05 Feb, 2018 Dysthymic disorder F34.1 [place] [address] [place] [address] 04 Feb, 2018 [place] [address] [address] Jan, [place] [address] [address] Jan, Abrasion of right elbow, ini tial encounter S50.311A ; Abrasion, right knee, initial encounter S80.211A and Sprain of other ligament of right ankle, initial encounter S93.491A [place] [address] [address] Jan, [facility] [address] [place] [id number] [place] [address] Jan, Injury of left ankle, initia l encounter S99.912A ; Fall down stairs, initial encounter W10.8XXA and BMI 45.0-49.9, adult Z68.42 [place] [address] [place] [address] Jan, COPD exacerbation J44.1 [place] [address] [place] [id number] [place] [address] Jan, 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 [place] [address] [place] [id number] [place] [address] 08 Jan, 2018 Bronchitis J40 and Acute sup purative otitis media of left ear without spontaneous rupture of tympanic membrane, recurrence not specified H66.002 [place] [address] [address] Jan, [place] [address] [place] [id number] [place] [address] Jan, Bronchitis J40 and BMI 40.0- 44.9, adult Z68.41 [place] [address] [address] Jan, [place] [address] [address] Dec, Gastric pain R10.9 [place] [address] [place] [id number] [place] [address] Dec, [place] [address] [address] Dec, History of illicit drug use Z87.898 ; Neuropathy G62.9 ; COPD (chronic obstructive pulmonary disease) with chronic bronchitis J44.9 and Acute pain of right knee M25.561 [place] [address] [address] Nov, [place] [address] [address] Nov, Onychomycosis B35.1 and Cont usion of left foot, subsequent encounter S90.32XD [place] [address] [place] [id number] [place] [address] Nov, COPD exacerbation J44.1 [place] [address] [address] Sep, [place] [address] [place] [id number] [place] [address] Sep, Dysthymic disorder F34.1 ; T obacco abuse Z72.0 ; Pain in right knee M25.561 ; Pain in left knee M25.562 ; Other chronic pain G89.29 and BMI 40.0- 44.9, adult Z68.41 [place] [address] [address] Aug, Major depressive disorder, r ecurrent episode, moderate F33.1 and Social phobia F40.[address] [address] 14 Aug, 2017 Dysthymic disorder F34.1 ; N on-pressure chronic ulcer of left thigh, unspecified ulcer stage L97.129 ; Tobacco abuse Z72.0 ; Mild chronic obstructive pulmonary disease J44.9 and Forgetfulness R68.[address] [address] 09 Aug, 2017 Onychomycosis B35.1 ; Fissur e in skin of foot R23.4 and Foot callus L84 [facility] [address] [address] Jul, Right medial knee pain M25.5 61 ; Upper respiratory tract infection, unspecified type J06.9 and BMI 40.0-44.9, adult Z68.41 [facility] WALK IN [address] [address] 08 Jul, 2017 Nausea and vomiting, intract ability of vomiting not specified, unspecified vomiting type R11.2 ; Left ear pain H92.02 and Gastric pain R10.9 [place] [address] [address] Apr, Encounter for immunization Z [address] [address] Apr, Onychomycosis B35.1 ; Xerosi s of skin L85.3 ; Neuropathy G62.9 and 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 [place] [address] [address] Jan, Onychomycosis B35.1 and Neur opathy G62.9 [facility] [address] [facility] [id number] [address] [place] [address] Dec, [facility] [address] [id number] [address] [place] [address] Dec, [facility] [address] [facility] [id number] [address] [place] [address] Nov, [facility] [address] [facility] [id number] [address] [place] [address] Aug, [facility] [address] [facility] [id number] [address] [place] [address] Aug, [facility] [address] [facility] [id number] [address] [place] [address] Jul, [facility] [address] [facility] [id number] [address] [place] [address] Jul, [facility] [address] [facility] [id number] [address] [place] [address] Jul, Decubitus ulcer of left thig h, stage 2 L89.892 [facility] [address] [facility] [id number] [address] [place] [address] 17 Jul, 2016 Decubitus ulcer of left thig h, stage 2 L89.892 [facility] [address] [facility] [id number] [address] [place] [address] 17 Jul, 2016 [facility] [address] [facility] [id number] [address] [place] [address] 15 Jul, 2016 Decubitus ulcer of left thig h, stage 2 L89.892 [facility] [address] [facility] [id number] [address] [place] [address] 14 Jul, 2016 [facility] [address] [facility] [id number] [address] [place] [address] 13 Jul, 2016 Cellulitis of other specifie d site L03.818 ; Illicit drug use F19.90 and Decubitus ulcer of left thigh, stage 2 L89.892 [facility] [address] [facility] [id number] [address] [place] [address] Jul, [facility] [address] [facility] [id number] [address] [place] [address] Jul, Cellulitis of right breast N 61.0 [facility] [address] [facility] [id number] [address] [place] [address] Jun, [facility] [address] [facility] [id number] [address] [place] [address] Jun, [facility] [address] [place] [id number] [place] [address] Jun, Wheezing R06.2 and Arthralgi a, unspecified joint M25.50 [facility] [address] [place] [id number] [place] [address] May, [facility] [address] [place] [id number] [place] [address] May, [facility] [address] [place] [id number] [place] [address] May, [facility] [address] [place] [id number] [place] [address] May, Shortness of breath R06.02 [facility] [address] [facility] [id number] [address] [place] [address] May, Onychomycosis B35.1 and Fiss ure in skin of foot R23.4 [facility] [address] [facility] [id number] [address] [place] [address] Apr, [facility] [address] [facility] [id number] [address] [place] [address] Apr, Dizziness R42 [facility] [address] [place] [id number] [place] [address] 14 Apr, 2016 Shortness of breath R06.02 ; Essential hypertension I10 ; Dizziness R42 and On home oxygen therapy Z99.81 [facility] [address] [id number] [address] [place] [address] Apr, [facility] [address] [id number] [address] [place] [address] 08 Apr, 2016 [facility] [address] [id number] [address] [place] [address] Apr, [facility] [address] [id number] [address] [place] [address] Apr, [facility] [address] [id number] [address] [place] [address] Apr, [facility] [address] [id number] [address] [place] [address] Apr, [facility] [address] [id number] [address] [place] [id number] Apr, [facility] [address] [id number] [address] [place] [id number] Mar, Mild chronic obstructive pul monary disease J44.9 [facility] [address] [id number] [address] [place] [id number] Mar, [facility] [address] [id number] [address] [place] [id number] Mar, Epigastric pain R10.13 ; Low back pain M54.5 ; Other chronic pain G89.29 and Breast cancer screening Z12.39 [facility] [address] [id number] [address] [place] [id number] Mar, [facility] [address] [id number] [address] [place] [id number] Mar, [facility] [address] [id number] [address] [place] [id number] Feb, [facility] [address] [facility] [id number] [address] [place] [id number] 08 Feb, 2016 [place] [address] [address] [facility] [id number] [address] [place] [id number] Feb, Fissure in skin of foot R23. 4 and Onychomycosis B35.1 [place] [address] [address] [place] [id number] [address] [place] [phone] Jan, Agoraphobia F40.00 [place] [address] [address] [facility] [id number] [address] [place] [id number] Dec, Agoraphobia F40.00 [place] [address] [address] [place] [id number] [address] [place] [id number] Dec, Mild persistent asthma witho ut complication J45.30 ; Dysthymic disorder F34.1 and Upper respiratory tract infection, unspecified type J06.9 [place] [id number] [place] [id number] Nov, Agoraphobia F40.00 [place] [address] [address] [place] [id number] [address] [place] [id number] October, Agoraphobia F40.00 [place] [address] [address] [place] [id number] [address] [place] [id number] Sep, Panic disorder without agora phobia F41.0 ; Agoraphobia F40.00 and Dysthymic disorder F34.1 [place] [address] [place] [id number] [address] [place] [address] Sep, Panic attacks F41.0 [place] [address] [facility] [id number] [address] [place] [address] Sep, [place] [address] [place] [id number] [address] [place] [address] Sep, Panic disorder without agora phobia F41.0 ; Varicose veins of both lower extremities I83.93 and Fatigue R53.83 [place] [address] [place] [id number] [address] [place] [address] 14 Sep, 2015 Fatigue R53.83 [place] [address] [id number] 05 Sep, 2015 [place] [address] [place] [id number] [address] [place] [address] Aug, [place] [address] [address] Aug, [place] [address] [address] Aug, Type 2 diabetes mellitus wit h diabetic neuropathic arthropathy E11.610 [place] [address] [address] Aug, Panic disorder without agora phobia F41.0 ; Agoraphobia F40.00 and Dysthymic disorder F34.1 [place] [address] [place] [id number] [address] [place] [address] Aug, Shortness of breath R06.02 ; Panic attacks F41.0 ; COPD (chronic obstructive pulmonary disease) J44.9 ; Tobacco abuse Z72.0 ; Family history of diabetes mellitus Z83.3 and Weight gain R63.5 [place] [address] [place] [id number] [address] [place] [address] Aug, [place] [address] [place] [id number] [address] [place] [address] Jul, [place] [address] [place] [id number] [address] [place] [address] Jun, Onychomycosis B35.1 ; Neurop athy G62.9 and Impaired circulation I99.9 [place] [address] [place] [id number] [address] [place] [id number] 09 Mar, 2015 Fissure in skin of foot R23. 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 [facility] [address] [facility] [id number] [address] [place] [id number] 18 Feb, 2015 Family history of coronary a rteriosclerosis V17.3 [facility] [address] [facility] [id number] [address] [place] [id number] 15 Feb, 2015 Allergic rhinitis due to darien agnieszka 477.0 ; Unspecified breast screening V76.10 ; Anxiety 300.00 and Family history of coronary arteriosclerosis V17.3 [facility] [address] [facility] [id number] [address] [place] [address] Jan, [facility] [address] [facility] [id number] [address] [place] [address] Dec, [facility] [address] [place] [id number] [address] [place] [id number] Dec, Onychomycosis 110.1 and Skin fissures 709.8 [facility] [address] [place] [id number] [address] [place] [phone] Sep, [facility] [address] [facility] [id number] [address] [place] [id number] Sep, [facility] [address] [place] [id number] [address] [place] [address] Aug, [facility] [address] [facility] [id number] [address] [place] [phone] Aug, [facility] [address] [facility] [id number] [address] [place] [phone] Jul, [facility] [address] [facility] [id number] [address] [place] [phone] Jul, [facility] [address] [facility] [id number] [address] [place] [phone] Jun, [facility] [address] [facility] [id number] [address] [place] [id number] Jun, [facility] [address] [facility] [id number] [address] [place] [phone] Jun, [facility] [address] [id number] [address] [place] [address], [place] [address] Jun, [facility] [address] [id number] [address] [place] [address], [place] [address] Jun, [facility] [address] [id number] [address] [place] [address], [place] [address] May, [facility] [address] [id number] [address] [place] [address], [place] [address] May, [facility] [address] [id number] [address] [place] [address], [place] [address] May, [facility] [address] [id number] [address] [place] [address], [place] [address] May, [facility] [address] [id number] [address] [place] [address], [place] [address] May, [facility] [address] [id number] [address] [place] [address], [place] [address] May, [facility] [address] [id number] [address] [place] [address], [place] [address] May, [facility] [address] [id number] [address] [place] [address], [place] [address] May, [facility] [address] [id number] [address] [place] [address], [place] [address] Apr, [facility] [address] [id number] [address] [place] [address], [place] [address] Apr, [facility] [address] [id number] [address] [place] [address], [place] [address] Apr, [facility] [address] [id number] [address] [place] [address], [place] [address] Apr, [facility] [address] [id number] [address] [place] [address], [place] [address] Apr, [facility] [address] [id number] [address] [place] [address], [place] [address] Apr, [facility] [address] [id number] [address] [place] [address], [place] [address] Apr, [facility] [address] [id number] [address] [place] [address], [place] [address] Apr, [facility] [address] [id number] [address] [place] [address], [place] [address] Apr, [facility] [address] [id number] [address] [place] [address], [place] [address] Apr, [facility] [address] [id number] [address] [place] [address], [place] [address] Mar, [facility] [address] [id number] [address] [place] [address], [place] [address] Mar, [facility] [address] [id number] [address] [place] [address], [place] [address] Mar, [facility] [address] [id number] [address] [place] [address], [place] [address] Mar, [facility] [address] [id number] [address] [place] [address], [place] [address] Mar, [facility] [address] [id number] [address] [place] [address], [place] [address] Mar, [facility] [address] [id number] [address] [place] [address], [place] [address] Mar, [facility] [address] [id number] [address] [place] [address], [place] [address] Mar, [facility] [address] [id number] [address] [place] [address], [place] [address] Mar, [facility] [address] [id number] [address] [place] [address], [place] [address] Mar, [facility] [address] [id number] [address] [place] [address], [place] [address] Mar, [facility] [address] [id number] [address] [place] [address], [place] [address] Mar, 2013 [facility] [address] [id number] [address] [place] [address], [place] [address] 22 Mar, 2014 [facility] [address] [id number] [address] [place] [address], [place] [address] 22 Mar, 2014 [facility] [address] [id number] [address] [place] [address], [place] [address] 22 Mar, 2014 [facility] [address] [id number] [address] [place] [address], [place] [address] 20 Mar, 2014 [facility] [address] [id number] [address] [place] [address], [place] [address] 20 Mar, 2014 [facility] [address] [id number] [address] [place] [address], [place] [address] 16 Mar, 2014 [facility] [address] [id number] [address] [place] [address], [place] [address] 16 Mar, 2014 [facility] [address] [id number] [address] [place] [address], [place] [address] 15 Mar, 2014 [facility] [address] [id number] [address] [place] [id number] 14 Mar, 2014 [facility] [address] [id number] [address] [place] [address] 14 Mar, 2014 [facility] [address] [id number] [address] [place] [id number] 14 Mar, 2014 [facility] [address] [id number] [address] [place] [address], [place] [address] 14 Mar, 2014 [facility] [address] [id number] [address] [place] [id number] 09 Mar, 2014 [facility] [address] [id number] [address] [place] [id number] 09 Mar, 2014 [facility] [address] [id number] [address] [place] [address], [place] [address] 09 Mar, 2013 [facility] [address] [id number] [address] [place] [address], [place] [address] 09 Mar, 2013 [facility] [address] [id number] [address] [place] [address], [place] [address] 30 Feb, 2013 [facility] [address] [id number] [address] [place] [address], [place] [address] 30 Feb, 2013 [facility] [address] [id number] [address] [place] [address], [place] [id number] 30 Feb, 2013 [facility] [address] [id number] [address] [place] [address], [place] [address] 30 Feb, 2013 [facility] [address] [id number] [address] [place] [address], [place] [address] Feb, 2013 [facility] [address] [id number] [address] [place] [address], [place] [address] Feb, 2013 [facility] [address] [id number] [address] [place] [address], [place] [address] Feb, 2013 [facility] [address] [id number] [address] [place] [address], [place] [address] Feb, 2013 [facility] [address] [id number] [address] [place] [address], [place] [address] Feb, 2013 [facility] [address] [id number] [address] [place] [address], [place] [address] Feb, 2013 [facility] [address] [id number] [address] [place] [address], [place] [address] Feb, 2013 [facility] [address] [id number] [address] [place] [address], [place] [address] Feb, 2013 [facility] [address] [id number] [address] [place] [address], [place] [address] Jan, [facility] [address] [id number] [address] [place] [address], [place] [address] Jan, [facility] [address] [id number] [facility] [place] [address] Jan, [facility] [address] [id number] [facility] [place] [address] Jan, [facility] [address] [id number] [facility] [place] [address] Jan, [facility] [address] [id number] [address] [place] [address], [place] [address] Jan, [facility] [address] [id number] [address] [place] [address], [place] [address] Jan, [facility] [address] [id number] [address] [place] [address], [place] [address] Jan, [facility] [address] [id number] [address] [place] [address], [place] [address] Jan, [facility] [address] [id number] [address] [place] [address], [place] [address] Jan, [facility] [address] [id number] [address] [place] [address], [place] [address] Jan, [facility] [address] [id number] [address] [place] [address], [place] [address] Jan, [facility] [address] [id number] [address] [place] [address], [place] [address] Jan, [facility] [address] [id number] [address] [place] [address], [place] [address] Dec, [facility] [address] [id number] [address] [place] [address], [place] [address] Dec, [facility] [address] [id number] [address] [place] [address], [place] [address] Dec, [facility] [address] [id number] [address] [place] [address], [place] [address] Dec, [facility] [address] [id number] [address] [place] [address], [place] [address] Dec, [facility] [address] [id number] [address] [place] [address], [place] [address] Dec, [facility] [address] [id number] [address] [place] [address], [place] [address] Dec, [facility] [address] [id number] [address] [place] [address], [place] [address] Dec, [facility] [address] [id number] [address] [place] [address], [place] [address] Dec, [facility] [address] [id number] [address] [place] [address], [place] [address] Dec, [facility] [address] [id number] [address] [place] [address], [place] [address] Dec, [facility] [address] [id number] [address] [place] [address], [place] [address] Dec, [facility] [address] [id number] [address] [place] [address], [place] [address] Dec, [facility] [address] [id number] [address] [place] [address], [place] [address] Dec, [facility] [address] [id number] [address] [place] [address], [place] [address] Dec, [facility] [address] [id number] [address] [place] [address], [place] [address] Dec, [facility] [address] [id number] [address] [place] [address], [place] [address] Dec, [facility] [address] [id number] [address] [place] [address], [place] [address] Dec, [facility] [address] [id number] [address] [place] [address], [place] [address] Nov, [facility] [address] [id number] [address] [place] [address], [place] [address] Nov, [facility] [address] [id number] [facility] [place] [address] 24 Nov, 2013 [facility] [address] [id number] [facility] [place] [address] Nov, [facility] [address] [id number] [facility] [place] [address] 16 Nov, 2013 [facility] [address] [id number] [address] [place] [address], [place] [address] Nov, [facility] [address] [id number] [address] [place] [address], [place] [address] Nov, [facility] [address] [id number] [address] [place] [address], [place] [address] Nov, [facility] [address] [id number] [address] [place] [address], [place] [address] Nov, [facility] [address] [id number] [address] [place] [address], [place] [address] Nov, [facility] [address] [id number] [address] [place] [address], [place] [address] Nov, [facility] [address] [id number] [address] [place] [address], [place] [address] Nov, [facility] [address] [id number] [address] [place] [address], [place] [address] Nov, [facility] [address] [id number] [address] [place] [address], [place] [address] Nov, [facility] [address] [id number] [address] [place] [address], [place] [address] Nov, [facility] [address] [id number] [address] [place] [address], [place] [address] Nov, [facility] [address] [id number] [address] [place] [address], [place] [address] Nov, [facility] [address] [id number] [address] [place] [address], [place] [address] Nov, [facility] [address] [id number] [address] [place] [address], [place] [address] Nov, [facility] [address] [id number] [address] [place] [address], [place] [address] Nov, [facility] [address] [id number] [address] [place] [address], [place] [address] October, [facility] [address] [id number] [address] [place] [address], [place] [address] October, [facility] [address] [id number] [address] [place] [address], [place] [address] October, [facility] [address] [id number] [address] [place] [address], [place] [address] October, [facility] [address] [id number] [address] [place] [address], [place] [address] Sep, [facility] [address] [id number] [address] [place] [address], [place] [address] Sep, [facility] [address] [id number] [address] [place] [address], [place] [address] Sep, [facility] [address] [id number] [address] [place] [address], [place] [address] Sep, [facility] [address] [id number] [address] [place] [address], [place] [address] Sep, [facility] [address] [id number] [address] [place] [address], [place] [address] Sep, [facility] [address] [id number] [address] [place] [address], [place] [address] Sep, [facility] [address] [id number] [address] [place] [address], [place] [address] Sep, [facility] [address] [id number] [address] [place] [address], [place] [address] Sep, [facility] [address] [id number] [address] [place] [address], [place] [address] Aug, [facility] [address] [id number] [address] [place] [address], [place] [address] Aug, [facility] [address] [id number] [address] [place] [address], [place] [address] Aug, [facility] [address] [id number] [address] [place] [address], [place] [address] Aug, [facility] [address] [id number] [address] [place] [address], [place] [id number] Aug, [facility] [address] [id number] [address] [place] [address], [place] [address] Aug, [facility] [address] [id number] [address] [place] [address], [place] [address] Aug, [facility] [address] [id number] [address] [place] [address], [place] [address] Aug, [facility] [address] [id number] [address] [place] [address], [place] [id number] Jul, [facility] [address] [id number] [address] [place] [address], [place] [address] Jul, [facility] [address] [id number] [address] [place] [address], [place] [id number] Jun, [facility] [address] [id number] [address] [place] [address], [place] [address] Jun, [facility] [address] [id number] [address] [place] [address], [place] [id number] Jun, [facility] [address] [id number] [address] [place] [address], [place] [id number] Jun, [facility] [address] [id number] [address] [place] [address], [place] [address] Jun, [facility] [address] [id number] [address] [place] [address], [place] [address] Jun, [facility] [address] [id number] [address] [place] [address], [place] [address] Jun, [facility] [address] [id number] [address] [place] [address], [place] [address] Jun, [facility] [address] [id number] [address] [place] [address], [place] [address] Jun, [facility] [address] [id number] [address] [place] [address], [place] [address] Jun, [facility] [address] [id number] [address] [place] [address], [place] [id number] Jun, [facility] [address] [id number] [address] [place] [address], [place] [address] Jun, [facility] [address] [id number] [address] [place] [address], [place] [id number] May, [facility] [address] [id number] [address] [place] [address], [place] [address] May, [facility] [address] [id number] [address] [place] [address], [place] [id number] May, [facility] [address] [id number] [address] [place] [address], [place] [id number] May, [facility] [address] [id number] [address] [place] [address], [place] [address] May, [facility] [address] [id number] [address] [place] [address], [place] [address] May, [facility] [address] [id number] [address] [place] [address], [place] [address] May, [facility] [address] [id number] [address] [place] [address], [place] [id number] May, [facility] [address] [id number] [address] [place] [address], [place] [id number] May, [facility] [address] [id number] [address] [place] [address], [place] [address] May, [facility] [address] [id number] [address] [place] [address], [place] [address] May, [facility] [address] [id number] [address] [place] [address], [place] [address] May, [facility] [address] [id number] [address] [place] [address], [place] [address] May, [facility] [address] [id number] [address] [place] [address], [place] [address] Apr, [facility] [address] [id number] [address] [place] [address], [place] [address] Apr, [facility] [address] [id number] [address] [place] [address], [place] [address] Mar, [facility] [address] [id number] [address] [place] [address], [place] [id number] Mar, [facility] [address] [id number] [address] [place] [address], [place] [id number] 24 Feb, 2013 [facility] [address] [id number] [address] [place] [address], [place] [address] Feb, [facility] [address] [id number] [address] [place] [address], [place] [address] Feb, [facility] [address] [id number] [address] [place] [id number] Feb, [facility] [address] [id number] [address] [place] [id number] Jan, [facility] [address] [id number] [address] [place] [address], [place] [id number] Jan, [facility] [address] [id number] [address] [place] [address], [place] [id number] Jan, [facility] [address] [id number] [address] [place] [address], [place] [address] Jan, [facility] [address] [id number] [address] [place] [address], [place] [id number] Jan, [facility] [address] [id number] [address] [place] [address], [place] [address] Jan, [facility] [address] [id number] [address] [place] [address], [place] [id number] Dec, [facility] [address] [id number] [address] [place] [address], [place] [address] Dec, [facility] [address] [id number] [address] [place] [address], [place] [id number] Dec, [facility] [address] [id number] [address] [place] [address], [place] [address] Dec, [facility] [address] [id number] [address] [place] [address], [place] [id number] Nov, [facility] [address] [id number] [address] [place] [address], [place] [address] October, [facility] [address] [id number] [address] [place] [address], [place] [address] October, [facility] [address] [id number] [address] [place] [address], [place] [address] October, [facility] [address] [id number] [address] [place] [address], [place] [address] Sep, [facility] [address] [id number] [address] [place] [address], [place] [id number] Sep, [facility] [address] [id number] [address] [place] [address], [place] [address] Jun, [facility] [address] [id number] [address] [place] [address], [place] [address] Jun, [facility] [address] [id number] [address] [place] [address], [place] [address] Jun, [facility] [address] [id number] [address] [place] [address], [place] [address] Apr, [facility] [address] [id number] [address] [place] [address], [place] [address] Apr, [facility] [address] [id number] [address] [place] [address], [place] [id number] Apr, [facility] [address] [id number] [address] [place] [address], [place] [address] Apr, [facility] [address] [id number] [address] [place] [address], [place] [address] Mar, [facility] [address] [id number] [address] [place] [address], [place] [id number] Mar, [facility] [address] [id number] [address] [place] [address], [place] [address] Mar, [facility] [address] [id number] [address] [place] [address], [place] [address] Mar, [facility] [address] [id number] [address] [place] [address], [place] [id number] Feb, [facility] [address] [id number] [address] [place] [address], [place] [id number] Feb, [facility] [address] [id number] [address] [place] [address], [place] [address] Feb, [facility] [address] [id number] [address] [place] [address], [place] [id number] Jan, [facility] [address] [id number] [address] [place] [address], [place] [id number] Jan, [facility] [address] [id number] [address] [place] [address], [place] [id number] Jan, [facility] [address] [id number] [address] [place] [address], [place] [id number] Jan, [facility] [address] [id number] [address] [place] [address], [place] [id number] Dec, [facility] [address] [id number] [address] [place] [address], [place] [id number] Dec, [facility] [address] [id number] [address] [place] [address], [place] [address] Nov, [facility] [address] [id number] [address] [place] [address], [place] [id number] Nov, [facility] [address] [id number] [address] [place] [address], [place] [address] October, [facility] [address] [id number] [address] [place] [address], [place] [address] October, [facility] [address] [id number] [address] [place] [address], [place] [id number] October, [facility] [address] [id number] [address] [place] [address], [place] [address] Sep, [facility] [address] [id number] [address] [place] [address], [place] [address] Sep, [facility] [address] [id number] [address] [place] [address], [place] [address] Sep, [facility] [address] [id number] [address] [place] [address], [place] [id number] Aug, [facility] [address] [id number] [address] [place] [address], [place] [address] Aug, [facility] [address] [id number] [address] [place] [address], [place] [address] Aug, [facility] [address] [id number] [address] [place] [address], [place] [address] Aug, [facility] [address] [id number] [address] [place] [address], [place] [address] Aug, [facility] [address] [id number] [address] [place] [address], [place] [id number] Jul, [facility] [address] [id number] [address] [place] [address], [place] [id number] 16 Jul, 2011 [facility] [address] [id number] [address] [place] [address], [place] [id number] 13 Jul, 2011 [facility] [address] [id number] [address] [place] [address], [place] [id number] 09 Jul, 2011 [facility] [address] [id number] [address] [place] [address], [place] [id number] 07 Jul, 2011 [facility] [address] [id number] [address] [place] [address], [place] [address] Jul, 2011 [facility] [address] [id number] [address] [place] [address], [place] [address] Jul, [facility] [address] [id number] [address] [place] [address], [place] [id number] Jul, [facility] [address] [id number] [address] [place] [address], [place] [address] Jun, [facility] [address] [id number] [address] [place] [address], [place] [id number] Jun, [facility] [address] [id number] [address] [place] [address], [place] [address] May, [facility] [address] [id number] [address] [place] [address], [place] [address] May, [facility] [address] [id number] [address] [place] [address], [place] [address] May, [facility] [address] [id number] [address] [place] [address], [place] [address] May, [facility] [address] [id number] [address] [place] [address], [place] [address] Apr, [facility] [address] [id number] [address] [place] [address], [place] [address] Apr, [facility] [address] [id number] [address] [place] [address], [place] [address] Apr, [facility] [address] [id number] [address] [place] [address], [place] [id number] 18 Mar, 2011 [facility] [address] [id number] [address] [place] [address], [place] [id number] 18 Mar, 2011 [facility] [address] [id number] [address] [place] [address], [place] [id number] 18 Mar, 2011 [facility] [address] [id number] [address] [place] [address], [place] [id number] 2011 [facility] [address] [id number] [address] [place] [address], [place] [address] Dec, [facility] [address] [id number] [address] [place] [address], [place] [id number] October, [facility] [address] [id number] [address] [place] [address], [place] [id number] 28 May, 2010 [facility] [address] [id number] [address] [place] [address], [place] [id number] 13 May, 2010 [facility] [address] [id number] [address] [place] [address], [place] [address] 13 May, 2010 [facility] [address] [id number] [address] [place] [address], [place] [id number] 06 May, 2010 [facility] [address] [id number] [address] [place] [address], [place] [id number] Mar, [facility] [address] [id number] [address] [place] [address], [place] [id number] Mar, [facility] [address] [id number] [address] [place] [address], [place] [id number] 31 May, 2009 [facility] [address] [id number] [address] [place] [address], [place] [id number] 30 May, 2009 [facility] [address] [id number] [address] [place] [address], [place] [id number] 08 May, 2009 [facility] [address] [id number] [address] [place] [address], [place] [id number] 08 May, 2009 [facility] [address] [id number] [address] [address] Apr, [facility] [address] [facility] [id number] [address] [address] Apr, [facility] [address] [facility] [id number] [address] [place] [address] October, IMMUNIZATIONS No Known Immunizations SOCIAL HISTORY [...]
--- OUTSIDE RECORDS SUMMARY | 2020-01-13 11:47 | XMS REPORT ---
Author Author Monique GRAJEDA [facility] Address [address] [place] [address] Care Team Providers Care Concession Stand Attendant Name Role Phone ARIAS GRAJEDA Unavailable PROBLEMS Type Condition ICD9-CM Code PCB49-VA Code Onset Dates Condition S tatus SNOMED Code Problem History of illicit drug use Z87.898 Ac tive 153599818 Problem Snoring R06.83 Active 54611825 Problem Impaired circulation I99.9 Active 44337658 Problem MRSA (methicillin resistant staph aureus) culture positive Z22.322 Active 349745767 Problem Panic disorder without agoraphobia F41.0 Active 11748966 Problem Dysthymic disorder F34.1 Active 7 7692838 Problem Mood disorder F39 Active 960633 05 Problem Arthritis M19.90 Active 2185457 Problem Mild chronic obstructive pulmonary disease J44.9 Active 758776917 Problem Mild persistent asthma without complication J45.30 Active 009217417 Problem Essential hypertension I10 Active 06208936 Problem On home oxygen therapy Z99.81 Active 086747316433 Problem Social phobia F40.10 Active 901338 02 Problem Neuropathy G62.9 Active 005158179 Problem 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 Active 027520967 Problem Major depressive disorder, recurrent episode, moderate F33.1 Active 333608897 Problem Psychotic disorder F29 Active 6 3215892 Problem Hypertension, benign I10 Active 97783616 Problem Onychomycosis B35.1 Active 169376 008 Problem Body mass index (BMI) 40.0-44.9, adult Z68.41 Active 392885141 Problem Varicose veins of both lower extremities I83.93 Active 02729545 Problem Sciatica, left side M54.32 Active 99154692 Problem Agoraphobia F40.00 Active 60534002 Problem Fatigue R53.83 Active 16113136 Problem Major depressive disorder in full remission F32.5 Active 08743373 Problem Slow transit constipation K59.01 Acti ve 85002193 Problem Chronic obstructive pulmonary disease, unspecified COPD ty pe J44.9 Active 85667124 Problem Unspecified psychosis not du e to a substance or known physiological condition F29 Active 024786184 ALLERGIES No Information ENCOUNTERS Encounter Location Date Diagnosis [place] [address] [address] Nov, [place] [address] [address] Sep, [place] [address] [address] Sep, Major depressive disorder, r ecurrent episode, moderate F33.1 ; Panic disorder without agoraphobia F41.0 and Morbid obesity E66.01 [place] [address] [address] Aug, Bronchitis J40 [place] [address] [address] Aug, Sciatica, left side M54.32 a nd Morbid obesity E66.01 [place] [address] [address] Aug, [place] [address] [address] Aug, Sciatica, left side M54.32 [place] [address] [address] Aug, Neuropathy G62.9 ; Onychomyc osis B35.1 ; Callus of foot L84 and Skin fissures R23.4 [place] [address] [address] Jul, [place] [address] [address] Jul, Morbid obesity E66.01 [place] [address] [place] [id number] [place] [address] Jul, Unspecified psychosis not du e to a substance or known physiological condition F29 ; Chronic obstructive pulmonary disease, unspecified COPD type J44.9 and Body mass index (BMI) 40.0-44.9, adult Z68.41 [place] [address] [address] [place] [id number] [place] [address] Jun, [place] [address] [address] Jun, Morbid obesity E66.01 [place] [address] [address] May, Morbid obesity E66.01 [place] [address] [address] May, Encounter for immunization Z 23 [place] [address] [address] May, Major depressive disorder, r ecurrent episode, moderate F33.1 ; Panic disorder without agoraphobia F41.0 and Morbid obesity E66.01 [place] [address] [address] May, Major depressive disorder in full remission F32.5 and Panic disorder without agoraphobia F41.0 [place] [address] [address] [place] [id number] [place] [address] Apr, Morbid obesity E66.01 [place] [address] [address] Apr, Slow transit constipation K5 9.01 and Cellulitis of left lower extremity L03.116 [place] [address] [address] Apr, Morbid obesity E66.01 [place] [address] [address] [place] [id number] [place] [address] Apr, [place] [address] [address] [place] [id number] [place] [address] Apr, Major depressive disorder, r ecurrent episode, moderate F33.1 and Panic disorder without agoraphobia F41.0 [place] [address] [address] [place] [id number] [place] [address] Mar, Viral upper respiratory trac t infection J06.9 [place] [address] [address] Mar, Bronchitis J40 and Encounter for immunization Z23 [place] [address] [address] 08 Mar, 2019 Morbid obesity E66.01 [place] [address] [address] 11 Feb, 2019 Major depressive disorder, r ecurrent episode, moderate F33.1 and Panic disorder without agoraphobia F41.0 [place] [address] [address] Feb, Morbid obesity E66.01 [place] [address] [address] 06 Feb, 2019 Onychomycosis B35.1 ; 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 and Xerosis of skin L85.3 [place] [address] [address] 04 Feb, 2019 Major depressive disorder, r ecurrent episode, moderate F33.1 ; Panic disorder without agoraphobia F41.0 and Morbid obesity E66.01 [place] [address] [place] [id number] [place] [address] Jan, Major depressive disorder in full remission F32.5 and Panic disorder without agoraphobia F41.0 [place] [address] [place] [id number] [place] [address] Jan, Pneumonia of both lower lobe s due to infectious organism J18.1 and Morbid obesity E66.01 [place] [address] [place] [id number] [place] [address] Jan, [place] [address] [place] [id number] [place] [address] Jan, Major depressive disorder in full remission F32.5 and Panic disorder without agoraphobia F41.0 [place] [address] [place] [id number] [place] [address] Jan, [place] [address] [place] [id number] [place] [address] Jan, Major depressive disorder, r ecurrent episode, moderate F33.1 ; Panic disorder without agoraphobia F41.0 and Morbid obesity E66.01 [place] [address] [place] [id number] [place] [address] Dec, Bilious vomiting with nausea R11.14 ; Coughing R05 and Choking, subsequent encounter T17.308D [place] [address] [place] [id number] [place] [address] Dec, Morbid obesity E66.01 [place] [address] [place] [id number] [place] [address] 16 Dec, 2018 Major depressive disorder, r ecurrent episode, moderate F33.1 and Panic disorder without agoraphobia F41.0 [place] [address] [place] [id number] [place] [address] Dec, [place] [address] [place] [id number] [place] [address] Dec, Major depressive disorder, r ecurrent episode, moderate F33.1 [place] [address] [place] [id number] [place] [address] Nov, Major depressive disorder, r ecurrent episode, moderate F33.1 ; Panic disorder without agoraphobia F41.0 and Morbid obesity E66.01 [place] [address] [place] [id number] [place] [address] Nov, Morbid obesity E66.01 [place] [address] [place] [address] Nov, Major depressive disorder, r ecurrent episode, moderate F33.1 and Panic disorder without agoraphobia F41.0 [facility] WALK IN [facility] [address] [place] [id number] [place] [address] Nov, Allergic reaction, initial e ncounter T78.40XA and Morbid obesity E66.01 [place] [address] [place] [address] Nov, [place] [address] [address] Nov, Morbid obesity E66.01 ; Swal lowing problem R13.10 and Hypertension, benign I10 [facility]ALK [facility] [place] [address] [address] [place] [id number] [place] [address] Nov, Morbid obesity E66.01 ; COPD exacerbation J44.1 and Non- recurrent acute suppurative otitis media of left ear without spontaneous rupture of tympanic membrane H66.002 [place] [address] [address] Nov, Onychomycosis B35.1 ; Neurop athy G62.9 and Fissure in skin of foot R23.4 [place] [address] [place] [address] October, Major depressive disorder, r ecurrent episode, moderate F33.1 ; Panic disorder without agoraphobia F41.0 and Morbid obesity E66.01 [facility] WALK IN [facility] [address] [place] [address] October, Viral upper respiratory trac t infection J06.9 [place] [address] [place] [id number] [place] [address] October, [place] [address] [place] [address] October, Major depressive disorder, r ecurrent episode, moderate F33.1 and Panic disorder without agoraphobia F41.0 [facility] [address] [facility] [id number] [address] [place] [address] October, [facility] [address] [facility] [id number] [address] [place] [address] October, [facility] [address] [facility] [id number] [address] [place] [address] October, [facility] [address] [facility] [id number] [address] [place] [address] October, [facility] [address] [facility] [id number] [address] [place] [address] October, [facility] [address] [facility] [id number] [address] [place] [address] October, [facility] [address] [facility] [id number] [address] [place] [address] October, Major depressive disorder, r ecurrent episode, moderate F33.1 and Panic disorder without agoraphobia F41.0 [facility] [address] [place] [id number] [place] [address] Sep, Morbid obesity E66.01 and Vane mbar neuritis M54.16 [facility] [address] [facility] [id number] [address] [place] [address] Sep, Panic disorder without agora phobia F41.0 and Major depressive disorder, recurrent episode, moderate F33.1 [facility] [address] [facility] [id number] [address] [place] [address] Sep, Gastroenteritis K52.9 ; Low back pain M54.5 ; Other chronic pain G89.29 and Morbid obesity E66.01 [facility] [address] [facility] [id number] [address] [place] [address] Sep, Major depressive disorder, r ecurrent episode, moderate F33.1 ; Panic disorder without agoraphobia F41.0 and Social phobia F40.10 [place] [address] [address] Sep, Panic disorder without agora phobia F41.0 [place] [address] [address] Sep, Panic disorder without agora phobia F41.0 [place] [address] [address] Aug, Panic disorder without agora phobia F41.0 ; Major depressive disorder, recurrent episode, moderate F33.1 ; Social phobia F40.10 ; Psychotic disorder F29 ; Tardive dyskinesia G24.01 and Morbid obesity E66.01 [place] [address] [address] Aug, Dysthymic disorder F34.1 and Psychotic disorder F29 [place] [address] [address] Aug, Encounter for Medicare annua l wellness exam Z00.00 ; Morbid obesity E66.01 and 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 [place] [address] [address] Aug, Dysthymic disorder F34.1 and Psychotic disorder F29 [place] [address] [address] Aug, Neuropathy G62.9 ; Onychomyc osis B35.1 and Xerosis of skin L85.3 [place] [address] [address] Jul, [place] [address] [address] Jul, Mood disorder F39 ; Wheezing R06.2 ; Choking, initial encounter T17.308A and Coughing R05 [place] [address] [place] [id number] [place] [address] 07 Jul, 2018 Low back pain M54.5 [facility] [address] [place] [id number] [place] [address] Jun, Flu-like symptoms R68.89 ; B HI 45.0-49.9, adult Z68.42 ; COPD exacerbation J44.1 and Acute bronchitis J20.9 [place] [address] [address] Jun, [place] [address] [address] May, [place] [address] [address] May, Onychomycosis B35.1 and 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.610 [place] [address] [address] May, Low back pain M54.5 and Abdoulaye a leg R60.[address] [address] May, BMI 45.0-49.9, adult Z68.42 ; Well woman exam with routine gynecological exam Z01.419 and Breast cancer screening Z12.31 [place] [address] [address] Apr, Arthritis M19.90 [place] [address] [address] 16 Apr, 2018 Arthritis M19.90 and Otalgia of both ears H92.03 [place] [address] [address] [place] [id number] [place] [address] Feb, [place] [address] [address] Feb, Low back pain M54.5 ; Other chronic pain G89.29 ; Exertional asthma J45.990 and Encounter for immunization Z23 [facility] [address] [facility] [id number] [address] [place] [address] Feb, Skin fissures R23.4 ; Neurop athy G62.9 and Onychomycosis B35.1 [facility] [address] [facility] [id number] [address] [place] [address] Feb, Dysthymic disorder F34.1 [facility] [address] [place] [id number] [place] [address] Feb, [place] [address] [address] Jan, [place] [address] [facility] [id number] [address] [place] [address] Jan, Abrasion of right elbow, ini tial encounter S50.311A ; Abrasion, right knee, initial encounter S80.211A and Sprain of other ligament of right ankle, initial encounter S93.491A [facility] [address] [place] [id number] [place] [address] Jan, [facility] [address] [place] [id number] [place] [address] Jan, Injury of left ankle, initia l encounter S99.912A ; Fall down stairs, initial encounter W10.8XXA and BMI 45.0-49.9, adult Z68.42 [facility] [address] [place] [id number] [place] [address] Jan, COPD exacerbation J44.1 [place] [address] [place] [id number] [place] [address] Jan, 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 [facility] [address] [place] [id number] [place] [address] Jan, Bronchitis J40 and Acute sup purative otitis media of left ear without spontaneous rupture of tympanic membrane, recurrence not specified H66.002 [facility] [address] [place] [id number] [place] [address] Jan, [place] [address] [facility] [id number] [address] [place] [address] Jan, Bronchitis J40 and BMI 40.0- 44.9, adult Z68.41 [place] [address] [place] [id number] [place] [address] Jan, [place] [address] [place] [id number] [place] [address] Dec, Gastric pain R10.9 [place] [address] [place] [id number] [place] [address] Dec, [place] [address] [place] [id number] [place] [address] Dec, History of illicit drug use Z87.898 ; Neuropathy G62.9 ; COPD (chronic obstructive pulmonary disease) with chronic bronchitis J44.9 and Acute pain of right knee M25.561 [place] [address] [place] [id number] [place] [address] Nov, [place] [address] [place] [id number] [place] [address] Nov, Onychomycosis B35.1 and Cont usion of left foot, subsequent encounter S90.32XD [place] [address] [place] [id number] [place] [address] Nov, COPD exacerbation J44.1 [place] [address] [place] [id number] [place] [address] Sep, [place] [address] [place] [id number] [place] [address] Sep, Dysthymic disorder F34.1 ; T obacco abuse Z72.0 ; Pain in right knee M25.561 ; Pain in left knee M25.562 ; Other chronic pain G89.29 and BMI 40.0- 44.9, adult Z68.41 [place] [address] [address] 22 Aug, 2017 Major depressive disorder, r ecurrent episode, moderate F33.1 and Social phobia F40.10 [place] [address] [address] 14 Aug, 2017 Dysthymic disorder F34.1 ; N on-pressure chronic ulcer of left thigh, unspecified ulcer stage L97.129 ; Tobacco abuse Z72.0 ; Mild chronic obstructive pulmonary disease J44.9 and Forgetfulness R68.89 [place] [address] [address] 09 Aug, 2017 Onychomycosis B35.1 ; Fissur e in skin of foot R23.4 and Foot callus L84 [facility] WALK IN [place] [address] [address] 26 Jul, 2017 Right medial knee pain M25.5 61 ; Upper respiratory tract infection, unspecified type J06.9 and BMI 40.0-44.9, adult Z68.41 [facility] WALK IN [address] [address] 08 Jul, 2017 Nausea and vomiting, intract ability of vomiting not specified, unspecified vomiting type R11.2 ; Left ear pain H92.02 and Gastric pain R10.9 [place] [address] [address] Apr, Encounter for immunization Z 23 [place] [address] [address] Apr, Onychomycosis B35.1 ; Xerosi s of skin L85.3 ; Neuropathy G62.9 and 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 [place] [address] [address] Jan, Onychomycosis B35.1 and Neur opathy G62.9 [facility] [address] [facility] [id number] [address] [place] [address] Dec, [facility] [address] [facility] [id number] [address] [place] [address] Dec, [facility] [address] [facility] [id number] [address] [place] [address] Nov, [facility] [address] [facility] [id number] [address] [place] [address] Aug, [facility] [address] [facility] [id number] [address] [place] [address] Aug, [facility] [address] [facility] [id number] [address] [place] [address] Jul, [facility] [address] [place] [id number] [place] [address] Jul, [facility] [address] [facility] [id number] [address] [place] [address] Jul, Decubitus ulcer of left thig h, stage 2 L89.892 [facility] [address] [place] [id number] [place] [address] 17 Jul, 2016 Decubitus ulcer of left thig h, stage 2 L89.892 [facility] [address] [place] [id number] [place] [address] 17 Jul, 2016 [facility] [address] [facility] [id number] [address] [place] [address] 15 Jul, 2016 Decubitus ulcer of left thig h, stage 2 L89.892 [facility] [address] [place] [id number] [place] [address] 14 Jul, 2016 [facility] [address] [place] [id number] [place] [address] 13 Jul, 2016 Cellulitis of other specifie d site L03.818 ; Illicit drug use F19.90 and Decubitus ulcer of left thigh, stage 2 L89.892 [facility] [address] [facility] [id number] [address] [place] [address] Jul, [facility] [address] [facility] [id number] [address] [place] [address] 06 Jul, 2016 Cellulitis of right breast N 61.0 [facility] [address] [facility] [id number] [address] [place] [address] Jun, [facility] [address] [facility] [id number] [address] [place] [address] Jun, [facility] [address] [facility] [id number] [address] [place] [address] Jun, Wheezing R06.2 and Arthralgi a, unspecified joint M25.50 [facility] [address] [place] [id number] [place] [address] May, [facility] [address] [facility] [id number] [address] [place] [address] May, [facility] [address] [place] [id number] [place] [address] May, [facility] [address] [place] [id number] [place] [address] May, Shortness of breath R06.02 [facility] [address] [place] [id number] [address] [place] [id number] May, Onychomycosis B35.1 and Fiss ure in skin of foot R23.4 [facility] [address] [facility] [id number] [address] [place] [id number] Apr, [facility] [address] [facility] [id number] [address] [place] [id number] 18 Apr, 2016 Dizziness R42 [facility] [address] [facility] [id number] [address] [place] [id number] 14 Apr, 2016 Shortness of breath R06.02 ; Essential hypertension I10 ; Dizziness R42 and On home oxygen therapy Z99.81 [facility] [address] [id number] [address] [place] [id number] Apr, [facility] [address] [id number] [address] [place] [phone] Apr, [facility] [address] [id number] [address] [place] [id number] Apr, [facility] [address] [id number] [address] [place] [id number] Apr, [facility] [address] [id number] [address] [place] [id number] Apr, [facility] [address] [id number] [address] [place] [id number] Apr, [facility] [address] [id number] [address] [place] [address] Apr, [facility] [address] [id number] [address] [place] [address] Mar, Mild chronic obstructive pul monary disease J44.9 [facility] [address] [id number] [address] [place] [address] Mar, [facility] [address] [id number] [address] [place] [address] Mar, Epigastric pain R10.13 ; Low back pain M54.5 ; Other chronic pain G89.29 and Breast cancer screening Z12.39 [facility] [address] [id number] [address] [place] [id number] Mar, [facility] [address] [id number] [address] [place] [id number] Mar, [facility] [address] [id number] [address] [place] [id number] Feb, [facility] [address] [id number] [address] [place] [address] Feb, [facility] [address] [facility] [id number] [address] [place] [address] Feb, Fissure in skin of foot R23. 4 and Onychomycosis B35.1 [facility] [address] [facility] [id number] [address] [place] [address] Jan, Agoraphobia F40.00 [place] [address] [place] [id number] [address] [place] [address] Dec, Agoraphobia F40.00 [place] [address] [place] [id number] [address] [place] [address] Dec, Mild persistent asthma witho ut complication J45.30 ; Dysthymic disorder F34.1 and Upper respiratory tract infection, unspecified type J06.9 [place] [address] [place] [id number] [address] [place] [address] Nov, Agoraphobia F40.00 [place] [address] [place] [id number] [address] [place] [address] October, Agoraphobia F40.00 [place] [address] [place] [id number] [address] [place] [address] Sep, Panic disorder without agora phobia F41.0 ; Agoraphobia F40.00 and Dysthymic disorder F34.1 [place] [address] [facility] [id number] [address] [place] [address] Sep, Panic attacks F41.0 [place] [address] [facility] [id number] [address] [place] [address] Sep, [place] [address] [place] [id number] [address] [place] [address] Sep, Panic disorder without agora phobia F41.0 ; Varicose veins of both lower extremities I83.93 and Fatigue R53.83 [place] [address] [place] [id number] [address] [place] [address] Sep, Fatigue R53.83 [place] [address] [place] [id number] [address] [place] [address] Sep, [place] [address] [place] [id number] [address] [place] [address] Aug, [place] [address] [address] Aug, [place] [address] [address] Aug, Type 2 diabetes mellitus wit h diabetic neuropathic arthropathy E11.610 [place] [address] [address] Aug, Panic disorder without agora phobia F41.0 ; Agoraphobia F40.00 and Dysthymic disorder F34.1 [place] [address] [address] Aug, Shortness of breath R06.02 ; Panic attacks F41.0 ; COPD (chronic obstructive pulmonary disease) J44.9 ; Tobacco abuse Z72.0 ; Family history of diabetes mellitus Z83.3 and Weight gain R63.5 [place] [address] [place] [id number] [address] [place] [address] Aug, [place] [address] [place] [id number] [address] [place] [address] Jul, [place] [address] [place] [id number] [address] [place] [address] Jun, Onychomycosis B35.1 ; Neurop athy G62.9 and Impaired circulation I99.9 [place] [id number] [address] [place] [address] 09 Mar, 2015 Fissure in skin of foot R23. 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 [place] [address] [place] [id number] [address] [place] [address] 18 Feb, 2015 Family history of coronary a rteriosclerosis V17.3 [facility] [address] [facility] [id number] [address] [place] [phone] 15 Feb, 2015 Allergic rhinitis due to darien agnieszka 477.0 ; Unspecified breast screening V76.10 ; Anxiety 300.00 and Family history of coronary arteriosclerosis V17.3 [facility] [address] [id number] [address] [place] [address] Jan, [facility] [address] [facility] [id number] [address] [place] [phone] Dec, [facility] [address] [facility] [id number] [address] [place] [address] Dec, Onychomycosis 110.1 and Skin fissures 709.8 [facility] [address] [facility] [id number] [address] [place] [address] Sep, [facility] [address] [facility] [id number] [address] [place] [address] Sep, [facility] [address] [facility] [id number] [address] [place] [address] Aug, [facility] [address] [facility] [id number] [address] [place] [address] Aug, [facility] [address] [facility] [id number] [address] [place] [address] Jul, [facility] [address] [facility] [id number] [address] [place] [address] Jul, [facility] [address] [facility] [id number] [address] [place] [id number] Jun, [facility] [address] [facility] [id number] [address] [place] [address] Jun, [facility] [address] [facility] [id number] [address] [place] [id number] Jun, [facility] [address] [id number] [address] [place] [address], [place] [address] Jun, [facility] [address] [id number] [address] [place] [address], [place] [address] Jun, [facility] [address] [id number] [address] [place] [address], [place] [address] May, [facility] [address] [id number] [address] [place] [address], [place] [address] May, [facility] [address] [id number] [address] [place] [address], [place] [address] May, [facility] [address] [id number] [address] [place] [address], [place] [address] May, [facility] [address] [id number] [address] [place] [address], [place] [address] May, [facility] [address] [id number] [address] [place] [address], [place] [address] May, [facility] [address] [id number] [address] [place] [address], [place] [address] May, [facility] [address] [id number] [address] [place] [address], [place] [address] May, [facility] [address] [id number] [address] [place] [address], [place] [address] Apr, [facility] [address] [id number] [address] [place] [address], [place] [address] Apr, [facility] [address] [id number] [address] [place] [address], [place] [address] Apr, [facility] [address] [id number] [address] [place] [address], [place] [address] Apr, [facility] [address] [id number] [address] [place] [address], [place] [address] Apr, [facility] [address] [id number] [address] [place] [id number] Apr, [facility] [address] [id number] [address] [place] [address], [place] [address] Apr, [facility] [address] [id number] [address] [place] [address], [place] [address] Apr, [facility] [address] [id number] [address] [place] [address], [place] [address] Apr, [facility] [place] [address] [id number] [address] [place] [address] Apr, [facility] [address] [id number] [address] [place] [address], [place] [address] Mar, [facility] [place] [address] [id number] [address] [place] [address], [place] [address] Mar, [facility] [address] [id number] [address] [place] [address], [place] [address] Mar, [facility] [address] [id number] [address] [place] [address], [place] [address] Mar, [facility] [address] [id number] [address] [place] [address] Mar, [facility] [place] [address] [id number] [address] [place] [address], [place] [address] Mar, [facility] [place] [address] [id number] [address] [place] [address] Mar, [facility] [address] [id number] [address] [place] [address] Mar, [facility] [place] [address] [id number] [address] [place] [address], [place] [address] Mar, [facility] [address] [id number] [address] [place] [address], [place] [address] Mar, [facility] [address] [id number] [address] [place] [address], [place] [address] Mar, [facility] [address] [id number] [address] [place] [address], [place] [address] 22 Mar, 2013 [facility] [address] [id number] [address] [place] [address], [place] [address] 22 Mar, 2013 [facility] [address] [id number] [address] [place] [address], [place] [address] 22 Mar, 2013 [facility] [address] [id number] [address] [place] [address], [place] [address] 22 Mar, 2013 [facility] [address] [id number] [address] [place] [address], [place] [address] 20 Mar, 2013 [facility] [address] [id number] [address] [place] [address], [place] [address] 20 Mar, 2013 [facility] [address] [id number] [address] [place] [address], [place] [address] 16 Mar, 2013 [facility] [address] [id number] [address] [place] [address], [place] [address] 16 Mar, 2013 [facility] [address] [id number] [address] [place] [address], [place] [address] 15 Mar, 2014 [facility] [address] [id number] [address] [place] [address], [place] [address] 14 Mar, 2014 [facility] [address] [id number] [address] [place] [address], [place] [address] 14 Mar, 2014 [facility] [address] [id number] [address] [place] [address], [place] [address] 14 Mar, 2013 [facility] [address] [id number] [address] [place] [address], [place] [address] 14 Mar, 2014 [facility] [address] [id number] [address] [place] [address], [place] [address] 09 Mar, 2013 [facility] [address] [id number] [address] [place] [address], [place] [address] 09 Mar, 2014 [facility] [address] [id number] [address] [place] [address], [place] [address] Mar, 2013 [facility] [address] [id number] [address] [place] [address], [place] [address] Mar, 2013 [facility] [address] [id number] [address] [place] [address], [place] [address] Feb, 2013 [facility] [place] [address] [id number] [address] [place] [address], [place] [address] Feb, 2013 [facility] [place] [address] [id number] [address] [place] [address], [place] [address] 30 Feb, 2013 [facility] [place] [address] [id number] [address] [place] [address], [place] [address] 30 Feb, 2013 [facility] [address] [id number] [address] [place] [address], [place] [address] Feb, 2013 [facility] [address] [id number] [address] [place] [address], [place] [address] Feb, 2013 [facility] [address] [id number] [address] [place] [address], [place] [address] Feb, 2013 [facility] [place] [address] [id number] [address] [place] [address], [place] [address] Feb, 2013 [facility] [place] [address] [id number] [address] [place] [address], [place] [address] Feb, 2013 [facility] [place] [address] [id number] [address] [place] [address], [place] [address] Feb, 2013 [facility] [place] [address] [id number] [address] [place] [address], [place] [address] Feb, 2013 [facility] [place] [address] [id number] [address] [place] [address], [place] [address] Feb, 2013 [facility] [address] [id number] [address] [place] [address], [place] [address] Jan, [facility] [place] [address] [id number] [address] [place] [address], [place] [address] Jan, [facility] [place] [address] [id number] [address] [place] [address] [place] [address] Jan, [facility] [place] [address] [id number] [facility] [place] [address] Jan, [facility] [place] [address] [id number] [address] [place] [address], [place] [address] Jan, [facility] [place] [address] [id number] [address] [place] [address], [place] [address] Jan, [facility] [place] [facility] [address] [id number] [address] [place] [address], [place] [address] Jan, [facility] [place] [address] [id number] [address] [place] [address], [place] [address] Jan, [facility] [place] [address] [id number] [address] [place] [address], [place] [address] Jan, [facility] [place] [address] [id number] [address] [place] [address], [place] [address] Jan, [facility] [place] [address] [id number] [address] [place] [address], [place] [address] Jan, [facility] [place] [address] [id number] [address] [place] [address], [place] [address] Jan, [facility] [place] [address] [id number] [address] [place] [address], [place] [address] Jan, [facility] [place] [address] [id number] [address] [place] [address], [place] [address] Dec, [facility] [place] [address] [id number] [address] [place] [address], [place] [address] Dec, [facility] [place] [address] [id number] [address] [place] [address], [place] [address] Dec, [facility] [place] [address] [id number] [address] [place] [address], [place] [address] Dec, [facility] [place] [facility] [address] [id number] [address] [place] [address], [place] [address] Dec, [facility] [place] [address] [id number] [facility] [place] [address] Dec, 2013 [facility] [place] [facility] [address] [id number] [facility] [place] [address] Dec, 2013 [facility] [place] [facility] [address] [id number] [facility] [place] [address] Dec, 2013 [facility] [place] [facility] [address] [id number] [address] [place] [address], [place] [address] Dec, 2013 [facility] [place] [facility] [address] [id number] [address] [place] [address], [place] [address] Dec, 2013 [facility] [place] [address] [id number] [address] [place] [address], [place] [address] Dec, 2013 [facility] [place] [facility] [address] [id number] [address] [place] [address], [place] [address] Dec, 2013 [facility] [place] [facility] [address] [id number] [address] [place] [address], [place] [address] Dec, [facility] [place] [address] [id number] [address] [place] [address], [place] [address] Dec, [facility] [place] [address] [id number] [address] [place] [address], [place] [address] Dec, [facility] [place] [address] [id number] [address] [place] [address], [place] [address] Dec, [facility] [address] [id number] [address] [place] [address], [place] [address] Dec, [facility] [place] [address] [id number] [address] [place] [address], [place] [address] Dec, [facility] [place] [address] [id number] [address] [place] [address], [place] [address] Nov, [facility] [place] [facility] [address] [id number] [address] [place] [address], [place] [address] Nov, [facility] [address] [id number] [address] [place] [address], [place] [address] Nov, [facility] [address] [id number] [facility] [place] [address] Nov, [facility] [address] [id number] [facility] [place] [address] Nov, [facility] [place] [address] [id number] [facility] [place] [address] Nov, [facility] [address] [id number] [facility] [place] [address] Nov, [facility] [place] [facility] [address] [id number] [facility] [place] [address] Nov, [facility] [place] [address] [id number] [address] [place] [address], [place] [address] Nov, [facility] [address] [id number] [address] [place] [address], [place] [address] Nov, [facility] [address] [id number] [address] [place] [address], [place] [address] Nov, [facility] [address] [id number] [address] [place] [address], [place] [address] Nov, [facility] [address] [id number] [address] [place] [address], [place] [address] Nov, [facility] [place] [address] [id number] [address] [place] [address], [place] [address] Nov, [facility] [address] [id number] [address] [place] [address], [place] [address] Nov, [facility] [address] [id number] [address] [place] [address], [place] [address] Nov, [facility] [address] [id number] [address] [place] [address], [place] [address] Nov, [facility] [place] [address] [id number] [facility] [place] [address] Nov, [facility] [address] [id number] [address] [address] Nov, [facility] [address] [id number] [address] [place] [address], [place] [address] Nov, [facility] [address] [id number] [address] [place] [address], [place] [address] October, [facility] [address] [id number] [address] [place] [address], [place] [address] October, [facility] [address] [id number] [address] [place] [address], [place] [address] October, [facility] [address] [id number] [address] [place] [address], [place] [address] October, [facility] [address] [id number] [address] [place] [address], [place] [address] Sep, [facility] [address] [id number] [address] [place] [address], [place] [address] Sep, [facility] [address] [id number] [address] [place] [address], [place] [address] Sep, [facility] [address] [id number] [address] [place] [address], [place] [address] Sep, [facility] [address] [id number] [address] [place] [address], [place] [address] Sep, [facility] [address] [id number] [address] [place] [address], [place] [address] Sep, [facility] [address] [id number] [address] [place] [address], [place] [address] Sep, [facility] [address] [id number] [address] [place] [address], [place] [address] Sep, [facility] [address] [id number] [address] [place] [address], [place] [address] Sep, [facility] [address] [id number] [address] [place] [address], [place] [address] Aug, [facility] [address] [id number] [facility] [place] [address] Aug, [facility] [address] [id number] [address] [place] [address], [place] [address] Aug, [facility] [address] [id number] [address] [place] [address], [place] [address] Aug, [facility] [address] [id number] [address] [place] [address], [place] [address] Aug, [facility] [address] [id number] [address] [place] [address], [place] [address] Aug, [facility] [address] [id number] [address] [place] [address], [place] [address] Aug, [facility] [address] [id number] [address] [place] [address], [place] [address] Aug, [facility] [address] [id number] [address] [place] [address], [place] [address] Jul, [facility] [address] [id number] [address] [place] [address], [place] [address] Jul, [facility] [address] [id number] [address] [place] [address], [place] [address] Jun, [facility] [address] [id number] [address] [place] [address], [place] [address] Jun, [facility] [address] [id number] [address] [place] [address], [place] [address] Jun, [facility] [address] [id number] [address] [place] [address], [place] [address] Jun, [facility] [address] [id number] [address] [place] [address], [place] [address] Jun, [facility] [address] [id number] [address] [place] [address], [place] [address] Jun, [facility] [address] [id number] [address] [place] [address], [place] [address] Jun, [facility] [address] [id number] [address] [place] [address], [place] [address] Jun, [facility] [address] [id number] [address] [place] [address], [place] [address] Jun, [facility] [address] [id number] [address] [place] [address], [place] [address] Jun, [facility] [address] [id number] [address] [place] [address], [place] [address] Jun, [facility] [address] [id number] [address] [place] [address], [place] [address] Jun, [facility] [address] [id number] [address] [place] [address], [place] [address] May, [facility] [address] [id number] [address] [place] [address], [place] [address] May, [facility] [address] [id number] [address] [place] [address], [place] [address] May, [facility] [address] [id number] [address] [place] [address], [place] [address] May, [facility] [address] [id number] [address] [place] [address], [place] [address] May, [facility] [address] [id number] [address] [place] [address], [place] [address] 31 May, 2013 [facility] [address] [id number] [address] [place] [address], [place] [address] 26 May, 2013 [facility] [address] [id number] [address] [place] [address], [place] [address] 23 May, 2013 [facility] [address] [id number] [address] [place] [address], [place] [address] 23 May, 2013 [facility] [address] [id number] [address] [place] [address], [place] [address] 16 May, 2013 [facility] [address] [id number] [address] [place] [address], [place] [address] May, [facility] [facility] [address] [id number] [address] [place] [address], [place] [address] May, [facility] [address] [id number] [address] [place] [address], [place] [address] May, [facility] [address] [id number] [address] [place] [address], [place] [address] Apr, [facility] [address] [id number] [address] [place] [address], [place] [address] Apr, [facility] [address] [id number] [address] [place] [address], [place] [address] Mar, [facility] [address] [id number] [address] [place] [address], [place] [address] Mar, [facility] [address] [id number] [address] [place] [address], [place] [address] Feb, [facility] [address] [id number] [address] [place] [address], [place] [address] Feb, [facility] [address] [id number] [address] [place] [address], [place] [address] Feb, [facility] [address] [id number] [address] [place] [address], [place] [address] Feb, [facility] [address] [id number] [address] [place] [address], [place] [address] Jan, [facility] [address] [id number] [address] [place] [address], [place] [address] Jan, [facility] [address] [id number] [address] [place] [address], [place] [address] Jan, [facility] [address] [id number] [address] [place] [address], [place] [address] Jan, [facility] [address] [id number] [address] [place] [address], [place] [address] Jan, [facility] [address] [id number] [address] [place] [address], [place] [address] Jan, [facility] [address] [id number] [address] [place] [address], [place] [address] Dec, [facility] [address] [id number] [address] [place] [address], [place] [address] Dec, [facility] [address] [id number] [address] [place] [address], [place] [address] Dec, [facility] [address] [id number] [address] [place] [address], [place] [address] Dec, [facility] [address] [id number] [address] [place] [address], [place] [address] Nov, [facility] [address] [id number] [address] [place] [address], [place] [address] October, [facility] [address] [id number] [address] [place] [address], [place] [address] October, [facility] [address] [id number] [address] [place] [address], [place] [address] October, [facility] [address] [id number] [address] [place] [address], [place] [address] Sep, [facility] [address] [id number] [address] [place] [address], [place] [address] Sep, [facility] [address] [id number] [address] [place] [address], [place] [address] Jun, [facility] [address] [id number] [address] [place] [address], [place] [address] Jun, [facility] [address] [id number] [address] [place] [address], [place] [address] Jun, [facility] [address] [id number] [address] [place] [address], [place] [address] Apr, [facility] [address] [id number] [address] [place] [address], [place] [address] Apr, [facility] [address] [id number] [address] [place] [address], [place] [address] Apr, [facility] [address] [id number] [address] [place] [address], [place] [address] Apr, [facility] [address] [id number] [address] [place] [address], [place] [address] Mar, [facility] [address] [id number] [address] [place] [address], [place] [address] Mar, [facility] [address] [id number] [address] [place] [address], [place] [address] Mar, [facility] [address] [id number] [address] [place] [address], [place] [address] Mar, [facility] [address] [id number] [address] [place] [address], [place] [address] Feb, [facility] [address] [id number] [address] [place] [address], [place] [address] Feb, [facility] [address] [id number] [address] [place] [address], [place] [address] Feb, [facility] [address] [id number] [address] [place] [address], [place] [address] Jan, [facility] [address] [id number] [address] [place] [address], [place] [address] 16 Jan, 2012 [facility] [address] [id number] [address] [place] [address], [place] [address] Jan, [facility] [address] [id number] [address] [place] [address], [place] [address] Jan, [facility] [address] [id number] [address] [place] [address], [place] [address] Dec, [facility] [address] [id number] [address] [place] [address], [place] [address] Dec, [facility] [address] [id number] [address] [place] [address], [place] [address] Nov, [facility] [address] [id number] [address] [place] [address], [place] [address] Nov, [facility] [address] [id number] [address] [place] [address], [place] [address] October, [facility] [address] [id number] [address] [place] [address], [place] [address] October, [facility] [address] [id number] [address] [place] [address], [place] [address] October, [facility] [address] [id number] [address] [place] [address], [place] [address] Sep, [facility] [address] [id number] [address] [place] [address], [place] [address] Sep, [facility] [address] [id number] [address] [place] [address], [place] [address] Sep, [facility] [address] [id number] [address] [place] [address], [place] [address] Aug, [facility] [address] [id number] [address] [place] [address], [place] [address] Aug, [facility] [address] [id number] [address] [place] [address], [place] [address] Aug, [facility] [address] [id number] [address] [place] [address], [place] [address] Aug, [facility] [address] [id number] [address] [place] [address], [place] [address] Aug, [facility] [address] [id number] [address] [place] [address], [place] [address] Jul, [facility] [address] [id number] [address] [place] [address], [place] [address] 16 Jul, 2011 [facility] [address] [id number] [address] [place] [address], [place] [address] 13 Jul, 2011 [facility] [address] [id number] [address] [place] [address], [place] [address] 09 Jul, 2011 [facility] [address] [id number] [address] [place] [address], [place] [address] 07 Jul, 2011 [facility] [address] [id number] [address] [place] [address], [place] [address] Jul, [facility] [address] [id number] [address] [place] [address], [place] [address] Jul, [facility] [address] [id number] [address] [place] [address], [place] [address] Jul, [facility] [address] [id number] [address] [place] [address], [place] [address] Jun, [facility] [address] [id number] [address] [place] [address], [place] [address] Jun, [facility] [address] [id number] [address] [place] [address], [place] [address] May, [facility] [address] [id number] [address] [place] [address], [place] [address] May, [facility] [address] [id number] [address] [place] [address], [place] [address] May, [facility] [address] [id number] [address] [place] [address], [place] [address] May, [facility] [address] [id number] [address] [place] [address] Apr, [facility] [address] [id number] [address] [place] [address], [place] [address] Apr, [facility] [address] [id number] [address] [place] [address], [place] [address] Apr, [facility] [address] [id number] [address] [place] [address] Mar, [facility] [address] [id number] [address] [place] [address], [place] [address] 18 Mar, 2011 [facility] [address] [id number] [address] [place] [address], [place] [address] 18 Mar, 2011 [facility] [address] [id number] [address] [place] [address], [place] [address] 2011 [facility] [address] [id number] [address] [place] [address], [place] [address] Dec, [facility] [address] [id number] [address] [place] [address], [place] [address] October, [facility] [address] [id number] [address] [place] [address], [place] [address] 28 May, 2010 [facility] [address] [id number] [address] [place] [address], [place] [address] 13 May, 2010 [facility] [address] [id number] [address] [place] [address], [place] [address] 13 May, 2010 [facility] [address] [id number] [address] [place] [address], [place] [address] May, [facility] [address] [id number] [address] [place] [address], [place] [address] Mar, [facility] [address] [id number] [address] [place] [address], [place] [address] Mar, [facility] [address] [id number] [address] [place] [address], [place] [address] May, [facility] [address] [id number] [address] [place] [address], [place] [address] 30 May, 2009 [facility] [address] [id number] [address] [place] [address], [place] [address] 08 May, 2009 [facility] [address] [id number] [address] [place] [address], [place] [address] 08 May, 2009 [facility] [address] [id number] [address] [place] [address], [place] [address] Apr, [facility] [address] [facility] [id number] [address] [address] Apr, [facility] [address] [facility] [id number] [address] [place] [address] October, IMMUNIZATIONS No Known Immunizations SOCIAL HISTORY Never Assessed REASON FOR VISIT PLAN OF CARE VITAL SIGNS Height 64 in 2014-01-22 Weight 220 lbs 2014-01-22 Temperature 98.8 degrees Fahrenheit 2014-01-22 Heart Rate 70 bpm 2014-01-22 Respiratory Rate 24 2014-01-22 Blood pressure systolic 122 mmHg 2014-01-22 Blood pressure diastolic 68 mmHg 2014-01-22 MEDICATIONS Unknown Medications RESULTS No Results PROCEDURES [...]
--- OUTSIDE RECORDS SUMMARY | 2020-01-13 11:47 | XMS REPORT ---
Author [facility] Address [address] [place] [address] Care Team Providers Care Grain Operator Name Role Phone RASHEED RAHMAN Unavailable PROBLEMS Type Condition ICD9-CM Code YAC81-TM Code Onset Dates Condition S tatus SNOMED Code Problem History of illicit drug use Z87.898 Ac tive 702897410 Problem Snoring R06.83 Active 64513593 Problem Impaired circulation I99.9 Active 61200629 Problem MRSA (methicillin resistant staph aureus) culture positive Z22.322 Active 791425583 Problem Panic disorder without agoraphobia F41.0 Active 64195281 Problem Dysthymic disorder F34.1 Active 7 4617940 Problem Mood disorder F39 Active 347069 05 Problem Arthritis M19.90 Active 5868020 Problem Mild chronic obstructive pulmonary disease J44.9 Active 233868556 Problem Mild persistent asthma without complication J45.30 Active 630862125 Problem Essential hypertension I10 Active 87643284 Problem On home oxygen therapy Z99.81 Active 361361788568 Problem Social phobia F40.10 Active 704650 02 Problem Neuropathy G62.9 Active 462424014 Problem 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 Active 500007630 Problem Major depressive disorder, recurrent episode, moderate F33.1 Active 494499198 Problem Psychotic disorder F29 Active 6 7972636 Problem Hypertension, benign I10 Active 00572520 Problem Onychomycosis B35.1 Active 196163 008 Problem Body mass index (BMI) 40.0-44.9, adult Z68.41 Active 678731338 Problem Varicose veins of both lower extremities I83.93 Active 45621003 Problem Sciatica, left side M54.32 Active 72523279 Problem Agoraphobia F40.00 Active 17376872 Problem Fatigue R53.83 Active 94635752 Problem Major depressive disorder in full remission F32.5 Active 50688205 Problem Slow transit constipation K59.01 Acti ve 52670699 Problem Chronic obstructive pulmonary disease, unspecified COPD ty pe J44.9 Active 69196118 Problem Unspecified psychosis not du e to a substance or known physiological condition F29 Active 378855933 ALLERGIES No Information ENCOUNTERS Encounter Location Date Diagnosis [place] [address] [address] Nov, [place] [address] [address] Sep, Major depressive disorder, r ecurrent episode, moderate F33.1 ; Panic disorder without agoraphobia F41.0 and Morbid obesity E66.01 [place] [address] [address] Aug, Bronchitis J40 [place] [address] [address] Aug, Sciatica, left side M54.32 a nd Morbid obesity E66.01 [place] [address] [address] Aug, [place] [address] [address] Aug, Sciatica, left side M54.32 [place] [address] [address] Aug, Neuropathy G62.9 ; Onychomyc osis B35.1 ; Callus of foot L84 and Skin fissures R23.4 [place] [address] [place] [id number] [place] [address] Jul, [place] [address] [address] Jul, Morbid obesity E66.01 [place] [address] [address] Jul, Unspecified psychosis not du e to a substance or known physiological condition F29 ; Chronic obstructive pulmonary disease, unspecified COPD type J44.9 and Body mass index (BMI) 40.0-44.9, adult Z68.41 [place] [address] [address] [place] [id number] [place] [address] Jun, [place] [address] [place] [id number] [place] [address] Jun, Morbid obesity E66.01 [place] [address] [place] [id number] [place] [address] May, Morbid obesity E66.01 [place] [address] [address] May, Encounter for immunization Z 23 [place] [address] [place] [id number] [place] [address] May, Major depressive disorder, r ecurrent episode, moderate F33.1 ; Panic disorder without agoraphobia F41.0 and Morbid obesity E66.01 [place] [address] [place] [id number] [place] [address] May, Major depressive disorder in full remission F32.5 and Panic disorder without agoraphobia F41.0 [place] [address] [place] [id number] [place] [address] Apr, Morbid obesity E66.01 [place] [address] [place] [id number] [place] [address] Apr, Slow transit constipation K5 9.01 and Cellulitis of left lower extremity L03.116 [place] [address] [address] [place] [id number] [place] [address] Apr, Morbid obesity E66.01 [place] [address] [place] [id number] [place] [address] Apr, [place] [address] [place] [id number] [place] [address] Apr, Major depressive disorder, r ecurrent episode, moderate F33.1 and Panic disorder without agoraphobia F41.0 [place] [address] [address] Mar, Viral upper respiratory trac t infection J06.9 [place] [address] [place] [id number] [place] [address] Mar, Bronchitis J40 and Encounter for immunization Z23 [place] [address] [address] Mar, Morbid obesity E66.01 [place] [address] [address] Feb, Major depressive disorder, r ecurrent episode, moderate F33.1 and Panic disorder without agoraphobia F41.0 [place] [address] [address] Feb, Morbid obesity E66.01 [place] [address] [address] 06 Feb, 2019 Onychomycosis B35.1 ; 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 [address] [facility] [id number] [address] [place] [address] Jan, Major depressive disorder in full remission F32.5 and Panic disorder without agoraphobia F41.0 [place] [address] [facility] [id number] [address] [place] [address] Jan, [place] [address] [place] [id number] [place] [address] Jan, Major depressive disorder, r ecurrent episode, moderate F33.1 ; Panic disorder without agoraphobia F41.0 and Morbid obesity E66.01 [place] [address] [place] [id number] [place] [address] Dec, Bilious vomiting with nausea R11.14 ; Coughing R05 and Choking, subsequent encounter T17.308D [place] [address] [address] Dec, Morbid obesity E66.01 [place] [address] [place] [id number] [place] [address] Dec, Major depressive disorder, r ecurrent episode, moderate F33.1 and Panic disorder without agoraphobia F41.0 [place] [address] [place] [id number] [place] [address] Dec, [place] [address] [place] [id number] [place] [address] Dec, Major depressive disorder, r ecurrent episode, moderate F33.1 [place] [address] [facility] [id number] [address] [place] [address] Nov, Major depressive disorder, r ecurrent episode, moderate F33.1 ; Panic disorder without agoraphobia F41.0 and Morbid obesity E66.01 [facility] [address] [place] [id number] [place] [address] Nov, Morbid obesity E66.01 [place] [address] [address] Nov, Major depressive disorder, r ecurrent episode, moderate F33.1 and Panic disorder without agoraphobia F41.0 [facility] [address] [address] Nov, Allergic reaction, initial e ncounter T78.40XA and Morbid obesity E66.01 [place] [address] [address] Nov, [place] [address] [address] Nov, Morbid obesity E66.01 ; Swal lowing problem R13.10 and Hypertension, benign I10 [facility] [place] [address] [address] Nov, Morbid obesity E66.01 ; COPD exacerbation J44.1 and Non- recurrent acute suppurative otitis media of left ear without spontaneous rupture of tympanic membrane H66.002 [place] [address] [address] Nov, Onychomycosis B35.1 ; Neurop athy G62.9 and Fissure in skin of foot R23.4 [place] [address] [address] October, Major depressive disorder, r ecurrent episode, moderate F33.1 ; Panic disorder without agoraphobia F41.0 and Morbid obesity E66.01 [facility] [address] [place] [id number] [place] [address] October, Viral upper respiratory trac t infection J06.9 [place] [address] [place] [id number] [place] [address] October, [place] [address] [address] October, Major depressive disorder, r ecurrent episode, moderate F33.1 and Panic disorder without agoraphobia F41.0 [facility] [address] [id number] [address] [place] [address] October, [facility] [address] [facility] [id number] [address] [place] [address] October, [facility] [address] [facility] [id number] [address] [place] [address] October, [facility] [address] [facility] [id number] [address] [place] [address] October, [facility] [address] [id number] [address] [place] [address] October, [facility] [address] [facility] [id number] [address] [place] [address] October, [facility] [address] [facility] [id number] [address] [place] [address] October, Major depressive disorder, r ecurrent episode, moderate F33.1 and Panic disorder without agoraphobia F41.0 [facility] [address] [facility] [id number] [address] [place] [address] Sep, Morbid obesity E66.01 and Vane mbar neuritis M54.16 [facility] [address] [facility] [id number] [address] [place] [address] Sep, Panic disorder without agora phobia F41.0 and Major depressive disorder, recurrent episode, moderate F33.1 [facility] [address] [facility] [id number] [address] [place] [address] Sep, Gastroenteritis K52.9 ; Low back pain M54.5 ; Other chronic pain G89.29 and Morbid obesity E66.01 [facility] [address] [facility] [id number] [address] [place] [address] Sep, Major depressive disorder, r ecurrent episode, moderate F33.1 ; Panic disorder without agoraphobia F41.0 and Social phobia F40.10 [place] [address] [address] Sep, Panic disorder without agora phobia F41.0 [place] [address] [address] Sep, Panic disorder without agora phobia F41.0 [place] [address] [address] Aug, Panic disorder without agora phobia F41.0 ; Major depressive disorder, recurrent episode, moderate F33.1 ; Social phobia F40.10 ; Psychotic disorder F29 ; Tardive dyskinesia G24.01 and Morbid obesity E66.01 [place] [address] [address] Aug, Dysthymic disorder F34.1 and Psychotic disorder F29 [place] [address] [address] Aug, Encounter for Medicare ann l wellness exam Z00.00 ; Morbid obesity E66.01 and 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 [place] [address] [address] Aug, Dysthymic disorder F34.1 and Psychotic disorder F29 [place] [address] [address] Aug, Neuropathy G62.9 ; Onychomyc osis B35.1 and Xerosis of skin L85.3 [place] [address] [address] Jul, [place] [address] [address] Jul, Mood disorder F39 ; Wheezing R06.2 ; Choking, initial encounter T17.308A and Coughing R05 [place] [address] [address] Jul, Low back pain M54.5 [facility] [address] [facility] [id number] [address] [place] [address] Jun, Flu-like symptoms R68.89 ; B NV 45.0-49.9, adult Z68.42 ; COPD exacerbation J44.1 and Acute bronchitis J20.9 [facility] [address] [place] [id number] [place] [address] Jun, 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 [place] [address] [address] May, Low back pain M54.5 and Abdoulaye a leg R60.0 [place] [address] [address] [place] [id number] [place] [address] 11 May, 2018 BMI 45.0-49.9, adult Z68.42 ; Well woman exam with routine gynecological exam Z01.419 and Breast cancer screening Z12.31 [place] [address] [place] [id number] [place] [address] Apr, Arthritis M19.90 [place] [address] [place] [id number] [place] [address] 16 Apr, 2018 Arthritis M19.90 and Otalgia of both ears H92.03 [place] [address] [place] [id number] [place] [address] Feb, [place] [address] [address] Feb, Low back pain M54.5 ; Other chronic pain G89.29 ; Exertional asthma J45.990 and Encounter for immunization Z23 [place] [address] [place] [id number] [place] [address] Feb, Skin fissures R23.4 ; Neurop athy G62.9 and Onychomycosis B35.1 [place] [address] [address] 05 Feb, 2018 Dysthymic disorder F34.1 [place] [address] [address] Feb, [place] [address] [address] Jan, [place] [address] [address] Jan, Abrasion of right elbow, ini tial encounter S50.311A ; Abrasion, right knee, initial encounter S80.211A and Sprain of other ligament of right ankle, initial encounter S93.491A [place] [address] [address] Jan, [facility] [address] [address] Jan, Injury of left ankle, initia l encounter S99.912A ; Fall down stairs, initial encounter W10.8XXA and BMI 45.0-49.9, adult Z68.42 [place] [address] [address] Jan, COPD exacerbation J44.1 [place] [address] [address] 13 Jan, 2018 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 [place] [address] [address] 08 Jan, 2018 Bronchitis J40 and Acute sup purative otitis media of left ear without spontaneous rupture of tympanic membrane, recurrence not specified H66.002 [place] [address] [address] Jan, [place] [place] [id number] [place] [address] Jan, Bronchitis J40 and BMI 40.0- 44.9, adult Z68.41 [place] [address] [place] [id number] [place] [address] Jan, [place] [address] [place] [id number] [place] [address] Dec, Gastric pain R10.9 [place] [address] [place] [id number] [place] [address] Dec, [place] [address] [address] Dec, History of illicit drug use Z87.898 ; Neuropathy G62.9 ; COPD (chronic obstructive pulmonary disease) with chronic bronchitis J44.9 and Acute pain of right knee M25.561 [place] [address] [place] [id number] [place] [address] Nov, [place] [address] [address] Nov, Onychomycosis B35.1 and Cont usion of left foot, subsequent encounter S90.32XD [place] [address] [address] Nov, COPD exacerbation J44.1 [place] [address] [place] [id number] [place] [address] Sep, [place] [address] [place] [id number] [place] [address] Sep, Dysthymic disorder F34.1 ; T obacco abuse Z72.0 ; Pain in right knee M25.561 ; Pain in left knee M25.562 ; Other chronic pain G89.29 and BMI 40.0- 44.9, adult Z68.41 [place] [address] [place] [address] [place] [address] 22 Aug, 2017 Major depressive disorder, r ecurrent episode, moderate F33.1 and Social phobia F40.10 [place] [address] [address] 14 Aug, 2017 Dysthymic disorder F34.1 ; N on-pressure chronic ulcer of left thigh, unspecified ulcer stage L97.129 ; Tobacco abuse Z72.0 ; Mild chronic obstructive pulmonary disease J44.9 and Forgetfulness R68.89 [place] [address] [address] 09 Aug, 2017 Onychomycosis B35.1 ; Fissur e in skin of foot R23.4 and Foot callus L84 [facility] [address] [address] 26 Jul, 2017 Right medial knee pain M25.5 61 ; Upper respiratory tract infection, unspecified type J06.9 and BMI 40.0-44.9, adult Z68.41 [facility] [place] [address] [address] 08 Jul, 2017 Nausea and vomiting, intract ability of vomiting not specified, unspecified vomiting type R11.2 ; Left ear pain H92.02 and Gastric pain R10.9 [place] [address] [address] Apr, Encounter for immunization Z 23 [place] [address] [address] Apr, Onychomycosis B35.1 ; Xerosi s of skin L85.3 ; Neuropathy G62.9 and 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 [address] [id number] [address] [place] [address] Dec, [facility] [address] [id number] [address] [place] [address] Nov, [facility] [address] [facility] [id number] [address] [place] [address] Aug, [facility] [address] [id number] [address] [place] [address] Aug, [facility] [address] [id number] [address] [place] [address] Jul, [facility] [address] [facility] [id number] [address] [place] [address] Jul, [facility] [address] [facility] [id number] [address] [place] [address] Jul, Decubitus ulcer of left thig h, stage [address] [facility] [address] [facility] [id number] [address] [place] [address] 17 Jul, 2016 Decubitus ulcer of left thig h, stage [address] [facility] [address] [facility] [id number] [address] [place] [address] 17 Jul, 2016 [facility] [address] [facility] [id number] [address] [place] [address] 15 Jul, 2016 Decubitus ulcer of left thig h, stage [address] [facility] [address] [facility] [id number] [address] [place] [address] 14 Jul, 2016 [facility] [address] [facility] [id number] [address] [place] [address] 13 Jul, 2016 Cellulitis of other specifie d site L03.818 ; Illicit drug use F19.90 and Decubitus ulcer of left thigh, stage [address] [facility] [address] [facility] [id number] [address] [place] [address] 08 Jul, 2016 [facility] [address] [place] [id number] [place] [address] Jul, Cellulitis of right breast N 61.0 [place] [address] [facility] [id number] [address] [place] [address] Jun, [facility] [address] [address] Jun, [facility] [address] [place] [id number] [place] [address] Jun, Wheezing R06.2 and Arthralgi a, unspecified joint M25.50 [place] [address] [place] [id number] [place] [address] May, [place] [address] [address] May, [place] [address] [place] [id number] [place] [address] May, [place] [address] [address] 05 May, 2016 Shortness of breath R06.02 [place] [address] [address] May, Onychomycosis B35.1 and Fiss ure in skin of foot R23.4 [facility] [address] [place] [id number] [place] [address] Apr, [facility] [address] [address] 18 Apr, 2016 Dizziness R42 [place] [address] [place] [id number] [place] [address] 14 Apr, 2016 Shortness of breath R06.02 ; Essential hypertension I10 ; Dizziness R42 and On home oxygen therapy Z99.81 [place] [address] [id number] [address] [place] [address] Apr, [facility] [address] [id number] [address] [place] [address] Apr, [facility] [address] [id number] [address] [place] [address] Apr, [facility] [address] [id number] [address] [place] [address] Apr, [facility] [address] [id number] [address] [place] [address] Apr, [facility] [address] [id number] [address] [place] [address] Apr, [facility] [address] [id number] [address] [place] [address] Apr, [facility] [address] [id number] [address] [place] [address] Mar, Mild chronic obstructive pul monary disease J44.9 [facility] [address] [id number] [address] [place] [address] Mar, [facility] [address] [id number] [address] [place] [address] Mar, Epigastric pain R10.13 ; Low back pain M54.5 ; Other chronic pain G89.29 and Breast cancer screening Z12.39 [facility] [address] [id number] [address] [place] [address] Mar, [facility] [address] [id number] [address] [place] [address] Mar, [facility] [address] [id number] [address] [place] [address] Feb, [facility] [address] [id number] [address] [place] [address] Feb, [facility] [address] [id number] [address] [place] [id number] 02 Feb, 2016 Fissure in skin of foot R23. 4 and Onychomycosis B35.1 [place] [address] [address] [facility] [id number] [address] [place] [address] Jan, Agoraphobia F40.00 [place] [address] [address] [facility] [id number] [address] [place] [address] Dec, Agoraphobia F40.00 [place] [address] [address] [facility] [id number] [address] [place] [address] Dec, Mild persistent asthma witho ut complication J45.30 ; Dysthymic disorder F34.1 and Upper respiratory tract infection, unspecified type J06.9 [place] [address] [address] [facility] [id number] [address] [place] [address] Nov, Agoraphobia F40.00 [place] [address] [address] [place] [id number] [address] [place] [address] October, Agoraphobia F40.00 [place] [address] [address] [place] [id number] [address] [place] [address] Sep, Panic disorder without agora phobia F41.0 ; Agoraphobia F40.00 and Dysthymic disorder F34.1 [place] [address] [address] [place] [id number] [address] [place] [address] Sep, Panic attacks F41.0 [place] [address] [address] [facility] [id number] [address] [place] [address] Sep, [place] [address] [address] [facility] [id number] [address] [place] [address] Sep, Panic disorder without agora phobia F41.0 ; Varicose veins of both lower extremities I83.93 and Fatigue R53.83 [place] [address] [address] [facility] [id number] [address] [place] [id number] 14 Sep, 2015 Fatigue R53.83 [place] [address] [id number] [place] [id number] Sep, [facility] [address] [place] [id number] [address] [place] [address] Aug, [place] [address] [address] [place] [id number] [address] [place] [address] Aug, [place] [address] [address] Aug, Type 2 diabetes mellitus wit h diabetic neuropathic arthropathy E11.610 [place] [address] [address] [place] [id number] [address] [place] [address] Aug, Panic disorder without agora phobia F41.0 ; Agoraphobia F40.00 and Dysthymic disorder F34.1 [place] [address] [place] [id number] [address] [place] [address] Aug, Shortness of breath R06.02 ; Panic attacks F41.0 ; COPD (chronic obstructive pulmonary disease) J44.9 ; Tobacco abuse Z72.0 ; Family history of diabetes mellitus Z83.3 and Weight gain R63.5 [place] [address] [address] Aug, [place] [address] [place] [id number] [address] [place] [address] Jul, [place] [address] [address] Jun, Onychomycosis B35.1 ; Neurop athy G62.9 and Impaired circulation I99.9 [place] [address] [place] [id number] [address] [place] [address] 09 Mar, 2015 Fissure in skin of foot R23. 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 [address] [id number] [address] [place] [address] 15 Feb, 2015 Allergic rhinitis due to darien agnieszka 477.0 ; Unspecified breast screening V76.10 ; Anxiety 300.00 and Family history of coronary arteriosclerosis V17.3 [facility] [address] [id number] [address] [place] [address] Jan, [facility] [address] [id number] [address] [place] [address] Dec, [facility] [address] [id number] [address] [place] [address] Dec, Onychomycosis 110.1 and Skin fissures 709.8 [facility] [address] [id number] [address] [place] [address] Sep, [facility] [address] [id number] [address] [place] [address] Sep, [facility] [address] [id number] [address] [place] [address] Aug, [facility] [address] [id number] [address] [place] [address] Aug, [facility] [address] [id number] [address] [place] [address] Jul, [facility] [address] [id number] [address] [place] [address] Jul, [facility] [address] [id number] [address] [place] [address] Jun, [facility] [address] [id number] [address] [place] [address] Jun, [facility] [address] [id number] [address] [place] [address] Jun, [facility] [address] [facility] [id number] [address] [place] [address] Jun, [facility] [address] [id number] [address] [place] [address], [place] [address] Jun, [facility] [address] [id number] [address] [place] [address], [place] [address] May, [facility] [address] [id number] [address] [place] [address], [place] [address] May, [facility] [address] [id number] [address] [place] [address], [place] [address] May, [facility] [address] [id number] [address] [place] [address], [place] [address] May, [facility] [address] [id number] [address] [place] [address], [place] [address] May, [facility] [address] [id number] [address] [place] [address], [place] [address] May, [facility] [address] [id number] [address] [place] [address], [place] [address] May, [facility] [address] [id number] [address] [place] [address], [place] [address] May, [facility] [address] [id number] [address] [place] [address], [place] [address] Apr, [facility] [address] [id number] [address] [place] [address], [place] [address] Apr, [facility] [address] [id number] [address] [place] [address], [place] [address] Apr, [facility] [address] [id number] [address] [place] [address], [place] [address] Apr, [facility] [address] [id number] [address] [place] [address], [place] [address] Apr, [facility] [address] [id number] [address] [place] [address], [place] [address] Apr, [facility] [address] [id number] [address] [place] [address], [place] [address] 07 Apr, 2014 [facility] [address] [id number] [address] [place] [address], [place] [address] Apr, [facility] [address] [id number] [address] [place] [address], [place] [address] Apr, [facility] [address] [id number] [address] [place] [address], [place] [address] Apr, [facility] [address] [id number] [address] [place] [address], [place] [address] Mar, [facility] [address] [id number] [address] [place] [address], [place] [address] Mar, [facility] [address] [id number] [address] [place] [address], [place] [address] Mar, [facility] [address] [id number] [address] [place] [address], [place] [address] Mar, [facility] [address] [id number] [address] [place] [address], [place] [address] Mar, [facility] [address] [id number] [address] [place] [address], [place] [address] Mar, [facility] [address] [id number] [address] [place] [address], [place] [address] Mar, [facility] [address] [id number] [address] [place] [address], [place] [address] Mar, [facility] [address] [id number] [address] [place] [address], [place] [address] Mar, [facility] [address] [id number] [address] [place] [address], [place] [address] Mar, [facility] [address] [id number] [address] [place] [address], [place] [address] Mar, [facility] [address] [id number] [address] [place] [address], [place] [address] Mar, [facility] [address] [id number] [address] [place] [address], [place] [address] 22 Mar, 2013 [facility] [address] [id number] [address] [place] [address], [place] [address] 22 Mar, 2013 [facility] [address] [id number] [address] [place] [address], [place] [address] 22 Mar, 2013 [facility] [address] [id number] [address] [place] [address], [place] [address] 20 Mar, 2013 [facility] [address] [id number] [address] [place] [address], [place] [address] 20 Mar, 2013 [facility] [address] [id number] [address] [place] [address], [place] [address] 16 Mar, 2014 [facility] [address] [id number] [address] [place] [address], [place] [address] 16 Mar, 2014 [facility] [address] [id number] [address] [place] [address], [place] [address] 15 Mar, 2014 [facility] [address] [id number] [address] [place] [address], [place] [address] 14 Mar, 2014 [facility] [address] [id number] [address] [place] [address], [place] [address] 14 Mar, 2014 [facility] [address] [id number] [address] [place] [address], [place] [address] 14 Mar, 2014 [facility] [address] [id number] [address] [place] [address], [place] [address] 14 Mar, 2014 [facility] [address] [id number] [address] [place] [address], [place] [address] 09 Mar, 2014 [facility] [address] [id number] [address] [place] [address], [place] [address] 09 Mar, 2014 [facility] [address] [id number] [address] [place] [address], [place] [address] 09 Mar, 2014 [facility] [address] [id number] [address] [place] [address], [place] [address] 09 Mar, 2013 [facility] [address] [id number] [address] [place] [address], [place] [address] 30 Sep, 2013 [facility] [address] [id number] [address] [place] [address], [place] [address] 30 Feb, 2013 [facility] [address] [id number] [address] [place] [address], [place] [address] 30 Feb, 2013 [facility] [address] [id number] [address] [place] [address], [place] [address] 30 Feb, 2013 [facility] [address] [id number] [address] [place] [address], [place] [address] Feb, 2013 [facility] [address] [id number] [address] [place] [address], [place] [address] Feb, 2013 [facility] [address] [id number] [address] [place] [address], [place] [address] Feb, 2013 [facility] [address] [id number] [address] [place] [address], [place] [address] Feb, 2013 [facility] [address] [id number] [address] [place] [address], [place] [address] Feb, 2013 [facility] [address] [id number] [address] [place] [address], [place] [address] Feb, 2013 [facility] [address] [id number] [address] [place] [address], [place] [address] Feb, 2013 [facility] [address] [id number] [address] [place] [address], [place] [address] Feb, 2013 [facility] [address] [id number] [address] [place] [address], [place] [address] Jan, [facility] [address] [id number] [address] [place] [address], [place] [address] Jan, [facility] [address] [id number] [address] [place] [address], [place] [address] Jan, [facility] [address] [id number] [facility] [place] [address] Jan, [facility] [address] [id number] [address] [place] [address], [place] [address] Jan, [facility] [address] [id number] [address] [place] [address], [place] [address] Jan, [facility] [address] [id number] [address] [place] [address], [place] [address] Jan, [facility] [address] [id number] [address] [place] [address], [place] [address] Jan, [facility] [address] [id number] [address] [place] [address], [place] [address] Jan, [facility] [address] [id number] [address] [place] [address], [place] [address] Jan, [facility] [address] [id number] [address] [place] [address], [place] [address] Jan, [facility] [address] [id number] [address] [place] [address], [place] [address] Jan, [facility] [address] [id number] [address] [place] [address], [place] [address] Jan, [facility] [address] [id number] [address] [place] [address], [place] [address] Dec, [facility] [address] [id number] [address] [place] [address], [place] [address] Dec, [facility] [address] [id number] [address] [place] [address], [place] [address] Dec, [facility] [address] [id number] [address] [place] [address], [place] [address] Dec, [facility] [address] [id number] [address] [place] [address], [place] [address] Dec, [facility] [address] [id number] [address] [place] [address], [place] [address] Dec, [facility] [address] [id number] [address] [place] [address], [place] [address] Dec, 2013 [facility] [address] [id number] [address] [place] [address], [place] [address] Dec, 2013 [facility] [address] [id number] [address] [place] [address], [place] [address] Dec, 2013 [facility] [address] [id number] [address] [place] [address], [place] [address] Dec, 2013 [facility] [address] [id number] [address] [place] [address], [place] [address] Dec, 2013 [facility] [address] [id number] [address] [place] [address], [place] [address] Dec, 2013 [facility] [address] [id number] [address] [place] [address], [place] [address] Dec, 2013 [facility] [address] [id number] [address] [place] [address], [place] [address] Dec, 2013 [facility] [address] [id number] [address] [place] [address], [place] [address] Dec, [facility] [address] [id number] [address] [place] [address], [place] [address] Dec, [facility] [address] [id number] [address] [place] [address], [place] [address] Dec, [facility] [address] [id number] [address] [place] [address], [place] [address] Dec, [facility] [address] [id number] [address] [place] [address], [place] [address] Nov, [facility] [address] [id number] [address] [place] [address], [place] [address] Nov, [facility] [address] [id number] [address] [place] [address], [place] [address] Nov, [facility] [address] [id number] [address] [place] [address], [place] [address] Nov, [facility] [address] [id number] [facility] [place] [address] Nov, [facility] [address] [id number] [address] [place] [address], [place] [address] Nov, [facility] [address] [id number] [address] [place] [address], [place] [address] Nov, [facility] [address] [id number] [address] [place] [address], [place] [address] Nov, [facility] [address] [id number] [address] [place] [address], [place] [address] Nov, [facility] [address] [id number] [address] [place] [address], [place] [address] Nov, [facility] [address] [id number] [address] [place] [address], [place] [address] Nov, [facility] [address] [id number] [address] [place] [address], [place] [address] Nov, [facility] [address] [id number] [address] [place] [address], [place] [address] Nov, [facility] [address] [id number] [address] [place] [address], [place] [address] Nov, [facility] [address] [id number] [address] [place] [address], [place] [address] Nov, [facility] [address] [id number] [address] [place] [address], [place] [address] Nov, [facility] [address] [id number] [address] [place] [address], [place] [address] Nov, [facility] [address] [id number] [address] [place] [address], [place] [address] Nov, [facility] [address] [id number] [address] [place] [address], [place] [address] Nov, [facility] [address] [id number] [facility] [place] [address] Nov, [facility] [address] [id number] [address] [place] [address], [place] [address] October, [facility] [address] [id number] [address] [place] [address], [place] [address] October, [facility] [address] [id number] [address] [place] [address], [place] [address] October, [facility] [address] [id number] [address] [place] [address], [place] [address] October, [facility] [address] [id number] [address] [place] [address], [place] [address] Sep, [facility] [address] [id number] [address] [place] [address], [place] [address] Sep, [facility] [address] [id number] [address] [place] [address], [place] [address] Sep, [facility] [address] [id number] [address] [place] [address], [place] [address] Sep, [facility] [address] [id number] [address] [place] [address], [place] [address] Sep, [facility] [address] [id number] [address] [place] [address], [place] [address] Sep, [facility] [address] [id number] [address] [place] [address], [place] [address] Sep, [facility] [address] [id number] [address] [place] [address], [place] [address] Sep, [facility] [address] [id number] [address] [place] [address], [place] [address] Sep, [facility] [address] [id number] [address] [place] [address], [place] [address] Aug, [facility] [address] [id number] [address] [place] [address], [place] [address] Aug, [facility] [address] [id number] [facility] [place] [address] Aug, [facility] [address] [id number] [facility] [place] [address] Aug, [facility] [address] [id number] [facility] [place] [address] Aug, [facility] [address] [id number] [address] [place] [address], [place] [address] Aug, [facility] [address] [id number] [address] [place] [address], [place] [address] Aug, [facility] [address] [id number] [address] [place] [address], [place] [address] Aug, [facility] [address] [id number] [address] [place] [address], [place] [address] Jul, [facility] [address] [id number] [address] [place] [address], [place] [address] Jul, [facility] [address] [id number] [address] [place] [address], [place] [address] Jun, [facility] [address] [id number] [address] [place] [address], [place] [address] Jun, [facility] [address] [id number] [address] [place] [address], [place] [address] Jun, [facility] [address] [id number] [address] [place] [address], [place] [address] Jun, [facility] [address] [id number] [address] [place] [address], [place] [address] Jun, [facility] [address] [id number] [address] [place] [address], [place] [address] Jun, [facility] [address] [id number] [address] [place] [address], [place] [address] Jun, [facility] [address] [id number] [address] [place] [address], [place] [address] 15 Jun, 2013 [facility] [address] [id number] [address] [place] [address], [place] [address] 15 Jun, 2013 [facility] [address] [id number] [address] [place] [address], [place] [address] 14 Jun, 2013 [facility] [address] [id number] [address] [place] [address], [place] [address] 02 Jun, 2013 [facility] [address] [id number] [address] [place] [address], [place] [address] 02 Jun, 2013 [facility] [address] [id number] [address] [place] [address], [place] [address] 31 May, 2013 [facility] [address] [id number] [address] [place] [address], [place] [address] 31 May, 2013 [facility] [address] [id number] [address] [place] [address], [place] [address] 31 May, 2013 [facility] [address] [id number] [address] [place] [address], [place] [address] 31 May, 2013 [facility] [address] [id number] [address] [place] [address], [place] [address] 31 May, 2013 [facility] [address] [id number] [address] [place] [address], [place] [address] 31 May, 2013 [facility] [address] [id number] [address] [place] [address], [place] [address] 26 May, 2013 [facility] [address] [id number] [address] [place] [address], [place] [address] 23 May, 2013 [facility] [address] [id number] [address] [place] [address], [place] [address] 23 May, 2013 [facility] [address] [id number] [address] [place] [address], [place] [address] 16 May, 2013 [facility] [address] [id number] [address] [place] [address], [place] [address] 16 May, 2013 [facility] [address] [id number] [address] [place] [address], [place] [address] May, [facility] [address] [id number] [address] [place] [address], [place] [address] May, [facility] [address] [id number] [address] [place] [address], [place] [address] Apr, [facility] [address] [id number] [address] [place] [address], [place] [address] Apr, [facility] [address] [id number] [address] [place] [address], [place] [address] Mar, [facility] [address] [id number] [address] [place] [address], [place] [address] Mar, [facility] [address] [id number] [address] [place] [address], [place] [address] Feb, [facility] [address] [id number] [address] [place] [address], [place] [address] Feb, [facility] [address] [id number] [address] [place] [address], [place] [address] Feb, [facility] [address] [id number] [address] [place] [address], [place] [address] Feb, [facility] [address] [id number] [address] [place] [address], [place] [address] Jan, [facility] [address] [id number] [address] [place] [address], [place] [address] Jan, [facility] [address] [id number] [address] [place] [address], [place] [address] Jan, [facility] [address] [id number] [address] [place] [address], [place] [address] Jan, [facility] [address] [id number] [address] [place] [address], [place] [address] Jan, [facility] [address] [id number] [address] [place] [address], [place] [address] Jan, [facility] [address] [id number] [address] [place] [address], [place] [address] Dec, [facility] [address] [id number] [address] [place] [address], [place] [address] Dec, [facility] [address] [id number] [address] [place] [address], [place] [address] Dec, [facility] [address] [id number] [address] [place] [address], [place] [address] Dec, [facility] [address] [id number] [address] [place] [address], [place] [address] Nov, [facility] [address] [id number] [address] [place] [address], [place] [address] October, [facility] [address] [id number] [address] [place] [address], [place] [address] October, [facility] [address] [id number] [address] [place] [address], [place] [address] October, [facility] [address] [id number] [address] [place] [address], [place] [address] Sep, [facility] [address] [id number] [address] [place] [address], [place] [address] Sep, [facility] [address] [id number] [address] [place] [address], [place] [address] Jun, [facility] [address] [id number] [address] [place] [address], [place] [address] Jun, [facility] [address] [id number] [address] [place] [address], [place] [address] Jun, [facility] [address] [id number] [address] [place] [address], [place] [address] Apr, [facility] [address] [id number] [address] [place] [address], [place] [address] Apr, [facility] [address] [id number] [address] [place] [address], [place] [address] Apr, [facility] [address] [id number] [address] [place] [address], [place] [address] Apr, [facility] [address] [id number] [address] [place] [address], [place] [address] Mar, [facility] [address] [id number] [address] [place] [address], [place] [address] Mar, [facility] [address] [id number] [address] [place] [address], [place] [address] Mar, [facility] [address] [id number] [address] [place] [address], [place] [address] Mar, [facility] [address] [id number] [address] [place] [address], [place] [address] Feb, [facility] [address] [id number] [address] [place] [address], [place] [address] Feb, [facility] [address] [id number] [address] [place] [address], [place] [address] Feb, [facility] [address] [id number] [address] [place] [address], [place] [address] Jan, [facility] [address] [id number] [address] [place] [address], [place] [address] Jan, [facility] [address] [id number] [address] [place] [address], [place] [address] Jan, [facility] [address] [id number] [address] [place] [address], [place] [address] Jan, [facility] [address] [id number] [address] [place] [address], [place] [address] Dec, [facility] [address] [id number] [address] [place] [address], [place] [address] Dec, [facility] [address] [id number] [address] [place] [address], [place] [address] Nov, [facility] [address] [id number] [address] [place] [address], [place] [address] Nov, [facility] [address] [id number] [address] [place] [address], [place] [address] October, [facility] [address] [id number] [address] [place] [address], [place] [address] October, [facility] [address] [id number] [address] [place] [address], [place] [address] October, [facility] [address] [id number] [address] [place] [address], [place] [address] Sep, [facility] [address] [id number] [address] [place] [address], [place] [address] Sep, [facility] [address] [id number] [address] [place] [address], [place] [address] Sep, [facility] [address] [id number] [address] [place] [address], [place] [address] Aug, [facility] [address] [id number] [address] [place] [address], [place] [address] Aug, [facility] [address] [id number] [address] [place] [address], [place] [address] Aug, [facility] [address] [id number] [address] [place] [address], [place] [address] Aug, [facility] [address] [id number] [address] [place] [address], [place] [address] Aug, [facility] [address] [id number] [address] [place] [address], [place] [address] 23 Jul, 2011 [facility] [address] [id number] [address] [place] [address], [place] [address] 16 Jul, 2011 [facility] [address] [id number] [address] [place] [address], [place] [address] 13 Jul, 2011 [facility] [address] [id number] [address] [place] [address], [place] [address] 09 Jul, 2011 [facility] [address] [id number] [address] [place] [address], [place] [address] Jul, [facility] [address] [id number] [address] [place] [address], [place] [address] Jul, [facility] [address] [id number] [address] [place] [address], [place] [address] Jul, [facility] [address] [id number] [address] [place] [address], [place] [address] Jul, [facility] [address] [id number] [address] [place] [address], [place] [address] Jun, [facility] [address] [id number] [address] [place] [address], [place] [address] Jun, [facility] [address] [id number] [address] [place] [address], [place] [address] May, [facility] [address] [id number] [address] [place] [address], [place] [address] May, [facility] [address] [id number] [address] [place] [address], [place] [address] May, [facility] [address] [id number] [address] [place] [address], [place] [address] May, [facility] [address] [id number] [address] [place] [address], [place] [address] Apr, [facility] [address] [id number] [address] [place] [address], [place] [address] Apr, [facility] [address] [id number] [address] [place] [address], [place] [address] Apr, [facility] [address] [id number] [address] [place] [address], [place] [address] Mar, [facility] [address] [id number] [address] [place] [address], [place] [address] Mar, [facility] [address] [id number] [address] [place] [address], [place] [address] 18 Mar, 2011 [facility] [address] [id number] [address] [place] [address], [place] [address] 2011 [facility] [address] [id number] [address] [place] [address], [place] [address] Dec, [facility] [address] [id number] [address] [place] [address], [place] [address] October, [facility] [address] [id number] [address] [place] [address], [place] [address] 28 May, 2010 [facility] [address] [id number] [address] [place] [address], [place] [address] 13 May, 2010 [facility] [address] [id number] [address] [place] [address], [place] [address] 13 May, 2010 [facility] [address] [id number] [address] [place] [address], [place] [address] 06 May, 2010 [facility] [address] [id number] [address] [place] [address], [place] [address] Mar, [facility] [address] [id number] [address] [place] [address] Mar, [facility] [address] [id number] [address] [place] [address], [place] [address] 31 May, 2009 [facility] [address] [id number] [address] [place] [address] 30 May, 2009 [facility] [address] [id number] [address] [place] [address], [place] [address] May, [facility] [address] [id number] [address] [place] [address], [place] [address] 08 May, 2009 [facility] [address] [id number] [address] [place] [address] Apr, [facility] [address] [id number] [address] [place] [address] Apr, [facility] [address] [facility] [id number] [address] [address] October, IMMUNIZATIONS No Known Immunizations SOCIAL HISTORY [...]
--- OUTSIDE RECORDS SUMMARY | 2020-01-13 11:48 | XMS REPORT ---
Author Author Monique RAHMAN [facility] Address [address] [place] [address] Care Team Providers Care Warehouse Foreman Name Role Phone RASHEED RAHMAN Unavailable PROBLEMS Type Condition ICD9-CM Code [id number] Code Onset Dates Condition S tatus SNOMED Code Problem History of illicit drug use Z87.898 Ac tive 455952803 Problem Snoring R06.83 Active 22635203 Problem Impaired circulation I99.9 Active 22200767 Problem MRSA (methicillin resistant staph aureus) culture positive Z22.322 Active 188590835 Problem Panic disorder without agoraphobia F41.0 Active 50861546 Problem Dysthymic disorder F34.1 Active 7 5710160 Problem Mood disorder F39 Active 787451 05 Problem Arthritis M19.90 Active 0320828 Problem Mild chronic obstructive pulmonary disease J44.9 Active 272003837 Problem Mild persistent asthma without complication J45.30 Active 012081627 Problem Essential hypertension I10 Active 56839030 Problem On home oxygen therapy Z99.81 Active 457648573709 Problem Social phobia F40.10 Active 409162 02 Problem Neuropathy G62.9 Active 060611684 Problem 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 Active 214437952 Problem Major depressive disorder, recurrent episode, moderate F33.1 Active 751704303 Problem Psychotic disorder F29 Active 6 0591594 Problem Hypertension, benign I10 Active 10669695 Problem Onychomycosis B35.1 Active 087160 008 Problem Body mass index (BMI) 40.0-44.9, adult Z68.41 Active 923987811 Problem Varicose veins of both lower extremities I83.93 Active 15105526 Problem Sciatica, left side M54.32 Active 32382727 Problem Agoraphobia F40.00 Active 45681972 Problem Fatigue R53.83 Active 94868095 Problem Major depressive disorder in full remission F32.5 Active 09010367 Problem Slow transit constipation K59.01 Acti ve 25850393 Problem Chronic obstructive pulmonary disease, unspecified COPD ty pe J44.9 Active 58092027 Problem Unspecified psychosis not du e to a substance or known physiological condition F29 Active 367987353 ALLERGIES No Information ENCOUNTERS Encounter Location Date Diagnosis [place] [address] [address] Nov, [place] [address] [address] Sep, Major depressive disorder, r ecurrent episode, moderate F33.1 ; Panic disorder without agoraphobia F41.0 and Morbid obesity E66.01 [place] [address] [address] Aug, Bronchitis J40 [place] [address] [address] Aug, Sciatica, left side M54.32 a nd Morbid obesity E66.01 [place] [address] [address] Aug, [place] [address] [address] Aug, Sciatica, left side M54.32 [place] [address] [address] Aug, Neuropathy G62.9 ; Onychomyc osis B35.1 ; Callus of foot L84 and Skin fissures R23.4 [place] [address] [place] [id number] [place] [address] Jul, [place] [address] [address] Jul, Morbid obesity E66.01 [place] [address] [address] Jul, Unspecified psychosis not du e to a substance or known physiological condition F29 ; Chronic obstructive pulmonary disease, unspecified COPD type J44.9 and Body mass index (BMI) 40.0-44.9, adult Z68.41 [place] [address] [place] [id number] [place] [address] Jun, [place] [address] [place] [id number] [place] [address] Jun, Morbid obesity E66.01 [place] [address] [place] [id number] [place] [address] May, Morbid obesity E66.01 [place] [address] [address] May, Encounter for immunization Z 23 [place] [address] [place] [id number] [place] [address] May, Major depressive disorder, r ecurrent episode, moderate F33.1 ; Panic disorder without agoraphobia F41.0 and Morbid obesity E66.01 [place] [address] [place] [id number] [place] [address] May, Major depressive disorder in full remission F32.5 and Panic disorder without agoraphobia F41.0 [place] [address] [place] [id number] [place] [address] Apr, Morbid obesity E66.01 [place] [address] [place] [id number] [place] [address] Apr, Slow transit constipation K5 9.01 and Cellulitis of left lower extremity L03.116 [place] [address] [place] [id number] [place] [address] Apr, Morbid obesity E66.01 [place] [address] [place] [id number] [place] [address] Apr, [place] [address] [place] [id number] [place] [address] Apr, Major depressive disorder, r ecurrent episode, moderate F33.1 and Panic disorder without agoraphobia F41.0 [place] [address] [address] Mar, Viral upper respiratory trac t infection J06.9 [place] [address] [place] [id number] [place] [address] Mar, Bronchitis J40 and Encounter for immunization Z23 [place] [address] [address] Mar, Morbid obesity E66.01 [place] [address] [address] Feb, Major depressive disorder, r ecurrent episode, moderate F33.1 and Panic disorder without agoraphobia F41.0 [place] [address] [address] Feb, Morbid obesity E66.01 [place] [address] [address] 06 Feb, 2019 Onychomycosis B35.1 ; 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 and Xerosis of skin L85.3 [place] [address] [address] 04 Feb, 2019 Major depressive disorder, r ecurrent episode, moderate F33.1 ; Panic disorder without agoraphobia F41.0 and Morbid obesity E66.01 [place] [address] [place] [id number] [place] [address] Jan, Major depressive disorder in full remission F32.5 and Panic disorder without agoraphobia F41.[address] [address] Jan, Pneumonia of both lower lobe s due to infectious organism J18.1 and Morbid obesity E66.01 [place] [address] [address] Jan, [facility] [address] [facility] [id number] [address] [place] [address] Jan, Major depressive disorder in full remission F32.5 and Panic disorder without agoraphobia F41.0 [place] [address] [facility] [id number] [address] [place] [address] Jan, [place] [address] [place] [id number] [place] [address] Jan, Major depressive disorder, r ecurrent episode, moderate F33.1 ; Panic disorder without agoraphobia F41.0 and Morbid obesity E66.01 [place] [address] [place] [id number] [place] [address] Dec, Bilious vomiting with nausea R11.14 ; Coughing R05 and Choking, subsequent encounter T17.308D [place] [address] [address] Dec, Morbid obesity E66.01 [place] [address] [place] [id number] [place] [address] Dec, Major depressive disorder, r ecurrent episode, moderate F33.1 and Panic disorder without agoraphobia F41.0 [place] [address] [place] [id number] [place] [address] Dec, [place] [address] [place] [id number] [place] [address] Dec, Major depressive disorder, r ecurrent episode, moderate F33.1 [place] [address] [facility] [id number] [address] [place] [address] Nov, Major depressive disorder, r ecurrent episode, moderate F33.1 ; Panic disorder without agoraphobia F41.0 and Morbid obesity E66.01 [facility] [address] [place] [id number] [place] [address] Nov, Morbid obesity E66.01 [place] [address] [address] Nov, Major depressive disorder, r ecurrent episode, moderate F33.1 and Panic disorder without agoraphobia F41.0 [facility] [address] [address] Nov, Allergic reaction, initial e ncounter T78.40XA and Morbid obesity E66.01 [place] [address] [address] Nov, [place] [address] [address] Nov, Morbid obesity E66.01 ; Swal lowing problem R13.10 and Hypertension, benign I10 [facility] [place] [address] [address] Nov, Morbid obesity E66.01 ; COPD exacerbation J44.1 and Non- recurrent acute suppurative otitis media of left ear without spontaneous rupture of tympanic membrane H66.002 [place] [address] [address] Nov, Onychomycosis B35.1 ; Neurop athy G62.9 and Fissure in skin of foot R23.4 [place] [address] [address] October, Major depressive disorder, r ecurrent episode, moderate F33.1 ; Panic disorder without agoraphobia F41.0 and Morbid obesity E66.01 [facility] [address] [place] [id number] [place] [address] October, Viral upper respiratory trac t infection J06.9 [place] [address] [place] [id number] [place] [address] October, [place] [address] [address] October, Major depressive disorder, r ecurrent episode, moderate F33.1 and Panic disorder without agoraphobia F41.0 [facility] [address] [id number] [address] [place] [address] October, [facility] [address] [facility] [id number] [address] [place] [address] October, [facility] [address] [facility] [id number] [address] [place] [address] October, [facility] [address] [facility] [id number] [address] [place] [address] October, [facility] [address] [id number] [address] [place] [address] October, [facility] [address] [facility] [id number] [address] [place] [address] October, [facility] [address] [facility] [id number] [address] [place] [address] October, Major depressive disorder, r ecurrent episode, moderate F33.1 and Panic disorder without agoraphobia F41.0 [facility] [address] [facility] [id number] [address] [place] [address] Sep, Morbid obesity E66.01 and Vane mbar neuritis M54.16 [facility] [address] [facility] [id number] [address] [place] [address] Sep, Panic disorder without agora phobia F41.0 and Major depressive disorder, recurrent episode, moderate F33.1 [facility] [address] [facility] [id number] [address] [place] [address] Sep, Gastroenteritis K52.9 ; Low back pain M54.5 ; Other chronic pain G89.29 and Morbid obesity E66.01 [facility] [address] [facility] [id number] [address] [place] [address] Sep, Major depressive disorder, r ecurrent episode, moderate F33.1 ; Panic disorder without agoraphobia F41.0 and Social phobia F40.10 [place] [address] [address] Sep, Panic disorder without agora phobia F41.0 [place] [address] [address] Sep, Panic disorder without agora phobia F41.0 [place] [address] [address] Aug, Panic disorder without agora phobia F41.0 ; Major depressive disorder, recurrent episode, moderate F33.1 ; Social phobia F40.10 ; Psychotic disorder F29 ; Tardive dyskinesia G24.01 and Morbid obesity E66.01 [place] [address] [address] Aug, Dysthymic disorder F34.1 and Psychotic disorder F29 [place] [address] [address] Aug, Encounter for Medicare ann l wellness exam Z00.00 ; Morbid obesity E66.01 and 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 [place] [address] [address] Aug, Dysthymic disorder F34.1 and Psychotic disorder F29 [place] [address] [address] Aug, Neuropathy G62.9 ; Onychomyc osis B35.1 and Xerosis of skin L85.3 [place] [address] [address] Jul, [place] [address] [address] Jul, Mood disorder F39 ; Wheezing R06.2 ; Choking, initial encounter T17.308A and Coughing R05 [place] [address] [address] Jul, Low back pain M54.5 [facility] [address] [facility] [id number] [address] [place] [address] Jun, Flu-like symptoms R68.89 ; B OK 45.0-49.9, adult Z68.42 ; COPD exacerbation J44.1 and Acute bronchitis J20.9 [facility] [address] [place] [id number] [place] [address] Jun, [facility] [address] [place] [id number] [place] [address] May, [place] [address] [address] May, Onychomycosis B35.1 and 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 [place] [address] [address] May, Low back pain M54.5 and Abdoulaye a leg R60.0 [place] [address] [place] [id number] [place] [address] 11 May, 2018 BMI 45.0-49.9, adult Z68.42 ; Well woman exam with routine gynecological exam Z01.419 and Breast cancer screening Z12.31 [place] [address] [place] [id number] [place] [address] Apr, Arthritis M19.90 [place] [address] [place] [id number] [place] [address] 16 Apr, 2018 Arthritis M19.90 and Otalgia of both ears H92.03 [place] [address] [place] [id number] [place] [address] Feb, [place] [address] [address] Feb, Low back pain M54.5 ; Other chronic pain G89.29 ; Exertional asthma J45.990 and Encounter for immunization Z23 [place] [address] [place] [id number] [place] [address] Feb, Skin fissures R23.4 ; Neurop athy G62.9 and Onychomycosis B35.1 [place] [address] [address] 05 Feb, 2018 Dysthymic disorder F34.1 [place] [address] [address] Feb, [place] [address] [address] Jan, [place] [address] [address] Jan, Abrasion of right elbow, ini tial encounter S50.311A ; Abrasion, right knee, initial encounter S80.211A and Sprain of other ligament of right ankle, initial encounter S93.491A [place] [address] [address] Jan, [facility] [address] [address] Jan, Injury of left ankle, initia l encounter S99.912A ; Fall down stairs, initial encounter W10.8XXA and BMI 45.0-49.9, adult Z68.42 [place] [address] [address] Jan, COPD exacerbation J44.1 [place] [address] [address] 13 Jan, 2018 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 [place] [address] [address] 08 Jan, 2018 Bronchitis J40 and Acute sup purative otitis media of left ear without spontaneous rupture of tympanic membrane, recurrence not specified H66.002 [place] [address] [address] Jan, [place] [id number] [place] [id number] [place] [address] Jan, Bronchitis J40 and BMI 40.0- 44.9, adult Z68.41 [place] [address] [place] [id number] [place] [address] Jan, [place] [address] [place] [id number] [place] [address] Dec, Gastric pain R10.9 [place] [address] [place] [id number] [place] [address] Dec, [place] [address] [address] Dec, History of illicit drug use Z87.898 ; Neuropathy G62.9 ; COPD (chronic obstructive pulmonary disease) with chronic bronchitis J44.9 and Acute pain of right knee M25.561 [place] [address] [place] [id number] [place] [address] Nov, [place] [address] [address] Nov, Onychomycosis B35.1 and Cont usion of left foot, subsequent encounter S90.32XD [place] [address] [address] Nov, COPD exacerbation J44.1 [place] [address] [place] [id number] [place] [address] Sep, [place] [address] [place] [id number] [place] [address] Sep, Dysthymic disorder F34.1 ; T obacco abuse Z72.0 ; Pain in right knee M25.561 ; Pain in left knee M25.562 ; Other chronic pain G89.29 and BMI 40.0- 44.9, adult Z68.41 [place] [address] [place] [address] [place] [address] 22 Aug, 2017 Major depressive disorder, r ecurrent episode, moderate F33.1 and Social phobia F40.10 [place] [address] [address] 14 Aug, 2017 Dysthymic disorder F34.1 ; N on-pressure chronic ulcer of left thigh, unspecified ulcer stage L97.129 ; Tobacco abuse Z72.0 ; Mild chronic obstructive pulmonary disease J44.9 and Forgetfulness R68.89 [place] [address] [address] 09 Aug, 2017 Onychomycosis B35.1 ; Fissur e in skin of foot R23.4 and Foot callus L84 [facility] N [address] [address] 26 Jul, 2017 Right medial knee pain M25.5 61 ; Upper respiratory tract infection, unspecified type J06.9 and BMI 40.0-44.9, adult Z68.41 [facility] [place] [address] [address] 08 Jul, 2017 Nausea and vomiting, intract ability of vomiting not specified, unspecified vomiting type R11.2 ; Left ear pain H92.02 and Gastric pain R10.9 [place] [address] [address] Apr, Encounter for immunization Z 23 [place] [address] [address] Apr, Onychomycosis B35.1 ; Xerosi s of skin L85.3 ; Neuropathy G62.9 and 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 [place] [address] [place] [id number] [place] [address] Jan, Onychomycosis B35.1 and Neur opathy G62.9 [place] [address] [address] Dec, [facility] [address] [id number] [address] [place] [address] Dec, [facility] [address] [id number] [address] [place] [address] Nov, [facility] [address] [facility] [id number] [address] [place] [address] Aug, [facility] [address] [id number] [address] [place] [address] Aug, [facility] [address] [id number] [address] [place] [address] Jul, [facility] [address] [facility] [id number] [address] [place] [address] Jul, [facility] [address] [facility] [id number] [address] [place] [address] Jul, Decubitus ulcer of left thig h, stage 2 L89.892 [facility] [address] [facility] [id number] [address] [place] [address] 17 Jul, 2016 Decubitus ulcer of left thig h, stage 2 L89.892 [facility] [address] [facility] [id number] [address] [place] [address] 17 Jul, 2016 [facility] [address] [facility] [id number] [address] [place] [address] 15 Jul, 2016 Decubitus ulcer of left thig h, stage 2 L89.892 [facility] [address] [facility] [id number] [address] [place] [address] 14 Jul, 2016 [facility] [address] [facility] [id number] [address] [place] [address] 13 Jul, 2016 Cellulitis of other specifie d site L03.818 ; Illicit drug use F19.90 and Decubitus ulcer of left thigh, stage 2 L89.892 [facility] [address] [facility] [id number] [address] [place] [address] 08 Jul, 2016 [facility] [address] [place] [id number] [place] [address] Jul, Cellulitis of right breast N 61.0 [place] [address] [facility] [id number] [address] [place] [address] Jun, [facility] [address] [address] Jun, [facility] [address] [place] [id number] [place] [address] Jun, Wheezing R06.2 and Arthralgi a, unspecified joint M25.50 [place] [address] [place] [id number] [place] [address] May, [place] [address] [address] May, [place] [address] [place] [id number] [place] [address] May, [place] [address] [address] 05 May, 2016 Shortness of breath R06.02 [place] [address] [address] May, Onychomycosis B35.1 and Fiss ure in skin of foot R23.4 [facility] [address] [place] [id number] [place] [address] Apr, [facility] [address] [address] 18 Apr, 2016 Dizziness R42 [place] [address] [place] [id number] [place] [address] 14 Apr, 2016 Shortness of breath R06.02 ; Essential hypertension I10 ; Dizziness R42 and On home oxygen therapy Z99.81 [place] [address] [id number] [address] [place] [address] Apr, [facility] [address] [id number] [address] [place] [address] Apr, [facility] [address] [id number] [address] [place] [address] Apr, [facility] [address] [id number] [address] [place] [address] Apr, [facility] [address] [id number] [address] [place] [address] Apr, [facility] [address] [id number] [address] [place] [address] Apr, [facility] [address] [id number] [address] [place] [address] Apr, [facility] [address] [id number] [address] [place] [id number] Mar, Mild chronic obstructive pul monary disease J44.9 [facility] [address] [id number] [address] [place] [id number] Mar, [facility] [address] [id number] [address] [place] [id number] Mar, Epigastric pain R10.13 ; Low back pain M54.5 ; Other chronic pain G89.29 and Breast cancer screening Z12.39 [facility] [address] [id number] [address] [place] [id number] Mar, [facility] [address] [id number] [address] [place] [id number] Mar, [facility] [address] [id number] [address] [place] [phone] Feb, [facility] [address] [id number] [address] [place] [id number] Feb, [facility] [address] [id number] [address] [place] [id number] 02 Feb, 2016 Fissure in skin of foot R23. 4 and Onychomycosis B35.1 [place] [address] [address] [facility] [id number] [address] [place] [id number] Jan, Agoraphobia F40.00 [place] [address] [address] [facility] [id number] [address] [place] [address] Dec, Agoraphobia F40.00 [place] [address] [address] [facility] [id number] [address] [place] [address] Dec, Mild persistent asthma witho ut complication J45.30 ; Dysthymic disorder F34.1 and Upper respiratory tract infection, unspecified type J06.9 [place] [address] [address] [facility] [id number] [address] [place] [address] Nov, Agoraphobia F40.00 [place] [address] [address] [place] [id number] [address] [place] [address] October, Agoraphobia F40.00 [place] [address] [address] [place] [id number] [address] [place] [address] Sep, Panic disorder without agora phobia F41.0 ; Agoraphobia F40.00 and Dysthymic disorder F34.1 [place] [address] [address] [place] [id number] [address] [place] [address] Sep, Panic attacks F41.0 [place] [address] [address] [facility] [id number] [address] [place] [address] Sep, [place] [address] [address] [facility] [id number] [address] [place] [address] Sep, Panic disorder without agora phobia F41.0 ; Varicose veins of both lower extremities I83.93 and Fatigue R53.83 [place] [address] [address] [facility] [id number] [address] [place] [address] 14 Sep, 2015 Fatigue R53.83 [place] [id number] [place] [address] Sep, [facility] [address] [place] [id number] [address] [place] [address] Aug, [place] [address] [address] [place] [id number] [address] [place] [address] Aug, [place] [address] [address] Aug, Type 2 diabetes mellitus wit h diabetic neuropathic arthropathy E11.610 [place] [address] [address] [place] [id number] [address] [place] [address] Aug, Panic disorder without agora phobia F41.0 ; Agoraphobia F40.00 and Dysthymic disorder F34.1 [place] [address] [address] [place] [id number] [address] [place] [address] Aug, Shortness of breath R06.02 ; Panic attacks F41.0 ; COPD (chronic obstructive pulmonary disease) J44.9 ; Tobacco abuse Z72.0 ; Family history of diabetes mellitus Z83.3 and Weight gain R63.5 [place] [address] [address] Aug, [place] [address] [address] [place] [id number] [address] [place] [address] Jul, [place] [address] [address] Jun, Onychomycosis B35.1 ; Neurop athy G62.9 and Impaired circulation I99.9 [place] [address] [address] [place] [id number] [address] [place] [address] 09 Mar, 2015 Fissure in skin of foot R23. 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 [place] [id number] [place] [address] 18 Feb, 2015 Family history of coronary a rteriosclerosis V17.3 [facility] [address] [id number] [address] [place] [address] 15 Feb, 2015 Allergic rhinitis due to darien agnieszka 477.0 ; Unspecified breast screening V76.10 ; Anxiety 300.00 and Family history of coronary arteriosclerosis V17.3 [facility] [address] [id number] [address] [place] [address] Jan, [facility] [address] [id number] [address] [place] [address] Dec, [facility] [address] [id number] [address] [place] [address] Dec, Onychomycosis 110.1 and Skin fissures 709.8 [facility] [address] [id number] [address] [place] [address] Sep, [facility] [address] [id number] [address] [place] [address] Sep, [facility] [address] [id number] [address] [place] [address] Aug, [facility] [address] [id number] [address] [place] [address] Aug, [facility] [address] [id number] [address] [place] [address] Jul, [facility] [address] [id number] [address] [place] [address] Jul, [facility] [address] [id number] [address] [place] [address] Jun, [facility] [address] [id number] [address] [place] [address] Jun, [facility] [address] [id number] [address] [place] [address] Jun, [facility] [address] [facility] [id number] [address] [place] [address] Jun, [facility] [address] [id number] [address] [place] [address], [place] [address] Jun, [facility] [address] [id number] [address] [place] [address], [place] [address] May, [facility] [address] [id number] [address] [place] [address], [place] [address] May, [facility] [address] [id number] [address] [place] [address], [place] [address] May, [facility] [address] [id number] [address] [place] [address], [place] [address] May, [facility] [address] [id number] [address] [place] [address], [place] [address] May, [facility] [address] [id number] [address] [place] [address], [place] [address] May, [facility] [address] [id number] [address] [place] [address], [place] [address] May, [facility] [address] [id number] [address] [place] [address], [place] [address] May, [facility] [address] [id number] [address] [place] [address], [place] [address] Apr, [facility] [address] [id number] [address] [place] [address], [place] [address] Apr, [facility] [address] [id number] [address] [place] [address], [place] [address] Apr, [facility] [address] [id number] [address] [place] [address], [place] [address] Apr, [facility] [address] [id number] [address] [place] [address], [place] [address] Apr, [facility] [address] [id number] [address] [place] [address], [place] [address] Apr, [facility] [address] [id number] [address] [place] [address], [place] [address] 07 Apr, 2014 [facility] [address] [id number] [address] [place] [address], [place] [address] Apr, [facility] [address] [id number] [address] [place] [address], [place] [address] Apr, [facility] [address] [id number] [address] [place] [address], [place] [address] Apr, [facility] [address] [id number] [address] [place] [address], [place] [address] Mar, [facility] [address] [id number] [address] [place] [address], [place] [address] Mar, [facility] [address] [id number] [address] [place] [address], [place] [address] Mar, [facility] [address] [id number] [address] [place] [address], [place] [address] Mar, [facility] [address] [id number] [address] [place] [address], [place] [address] Mar, [facility] [address] [id number] [address] [place] [address], [place] [address] Mar, [facility] [address] [id number] [address] [place] [address], [place] [address] Mar, [facility] [address] [id number] [address] [place] [address], [place] [address] Mar, [facility] [address] [id number] [address] [place] [address], [place] [address] Mar, [facility] [address] [id number] [address] [place] [address], [place] [address] Mar, [facility] [address] [id number] [address] [place] [address], [place] [address] Mar, [facility] [address] [id number] [address] [place] [address], [place] [address] Mar, [facility] [address] [id number] [address] [place] [address], [place] [address] 22 Mar, 2013 [facility] [address] [id number] [address] [place] [address], [place] [address] 22 Mar, 2013 [facility] [address] [id number] [address] [place] [address], [place] [address] 22 Mar, 2013 [facility] [address] [id number] [address] [place] [address], [place] [address] 20 Mar, 2013 [facility] [address] [id number] [address] [place] [address], [place] [address] 20 Mar, 2013 [facility] [address] [id number] [address] [place] [address], [place] [address] 16 Mar, 2014 [facility] [address] [id number] [address] [place] [address], [place] [address] 16 Mar, 2014 [facility] [address] [id number] [address] [place] [address], [place] [address] 15 Mar, 2014 [facility] [address] [id number] [address] [place] [address], [place] [address] 14 Mar, 2014 [facility] [address] [id number] [address] [place] [address], [place] [address] 14 Mar, 2014 [facility] [address] [id number] [address] [place] [address], [place] [address] 14 Mar, 2014 [facility] [address] [id number] [address] [place] [address], [place] [address] 14 Mar, 2014 [facility] [address] [id number] [address] [place] [address], [place] [address] 09 Mar, 2014 [facility] [address] [id number] [address] [place] [address], [place] [address] 09 Mar, 2014 [facility] [address] [id number] [address] [place] [address], [place] [address] 09 Mar, 2014 [facility] [address] [id number] [address] [place] [address], [place] [address] 09 Mar, 2013 [facility] [address] [id number] [address] [place] [address], [place] [address] 30 Sep, 2013 [facility] [address] [id number] [address] [place] [address], [place] [address] 30 Feb, 2013 [facility] [address] [id number] [address] [place] [address], [place] [address] 30 Feb, 2013 [facility] [address] [id number] [address] [place] [address], [place] [address] 30 Feb, 2013 [facility] [address] [id number] [address] [place] [address], [place] [address] Feb, 2013 [facility] [address] [id number] [address] [place] [address], [place] [address] Feb, 2013 [facility] [address] [id number] [address] [place] [address], [place] [address] Feb, 2013 [facility] [address] [id number] [address] [place] [address], [place] [address] Feb, 2013 [facility] [address] [id number] [address] [place] [address], [place] [address] Feb, 2013 [facility] [address] [id number] [address] [place] [address], [place] [address] Feb, 2013 [facility] [address] [id number] [address] [place] [address], [place] [address] Feb, 2013 [facility] [address] [id number] [address] [place] [address], [place] [address] Feb, 2013 [facility] [address] [id number] [address] [place] [address], [place] [address] Jan, [facility] [address] [id number] [address] [place] [address], [place] [address] Jan, [facility] [address] [id number] [address] [place] [address], [place] [address] Jan, [facility] [address] [id number] [facility] [place] [address] Jan, [facility] [address] [id number] [address] [place] [address], [place] [address] Jan, [facility] [address] [id number] [address] [place] [address], [place] [address] Jan, [facility] [address] [id number] [address] [place] [address], [place] [address] Jan, [facility] [address] [id number] [address] [place] [address], [place] [address] Jan, [facility] [address] [id number] [address] [place] [address], [place] [address] Jan, [facility] [address] [id number] [address] [place] [address], [place] [address] Jan, [facility] [address] [id number] [address] [place] [address], [place] [address] Jan, [facility] [address] [id number] [address] [place] [address], [place] [address] Jan, [facility] [address] [id number] [address] [place] [address], [place] [address] Jan, [facility] [address] [id number] [address] [place] [address], [place] [address] Dec, [facility] [address] [id number] [address] [place] [address], [place] [address] Dec, [facility] [address] [id number] [address] [place] [address], [place] [address] Dec, [facility] [address] [id number] [address] [place] [address], [place] [address] Dec, [facility] [address] [id number] [address] [place] [address], [place] [address] Dec, [facility] [address] [id number] [address] [place] [address], [place] [address] Dec, [facility] [address] [id number] [address] [place] [address], [place] [address] Dec, 2013 [facility] [address] [id number] [address] [place] [address], [place] [address] Dec, 2013 [facility] [address] [id number] [address] [place] [address], [place] [address] Dec, 2013 [facility] [address] [id number] [address] [place] [address], [place] [address] Dec, 2013 [facility] [address] [id number] [address] [place] [address], [place] [address] Dec, 2013 [facility] [address] [id number] [address] [place] [address], [place] [address] Dec, 2013 [facility] [address] [id number] [address] [place] [address], [place] [address] Dec, 2013 [facility] [address] [id number] [address] [place] [address], [place] [address] Dec, 2013 [facility] [address] [id number] [address] [place] [address], [place] [address] Dec, [facility] [address] [id number] [address] [place] [address], [place] [address] Dec, [facility] [address] [id number] [address] [place] [address], [place] [address] Dec, [facility] [address] [id number] [address] [place] [address], [place] [address] Dec, [facility] [address] [id number] [address] [place] [address], [place] [address] Nov, [facility] [address] [id number] [address] [place] [address], [place] [address] Nov, [facility] [address] [id number] [address] [place] [address], [place] [address] Nov, [facility] [address] [id number] [address] [place] [address], [place] [address] Nov, [facility] [address] [id number] [facility] [place] [address] Nov, [facility] [address] [id number] [address] [place] [address], [place] [address] Nov, [facility] [address] [id number] [address] [place] [address], [place] [address] Nov, [facility] [address] [id number] [address] [place] [address], [place] [address] Nov, [facility] [address] [id number] [address] [place] [address], [place] [address] Nov, [facility] [address] [id number] [address] [place] [address], [place] [address] Nov, [facility] [address] [id number] [address] [place] [address], [place] [address] Nov, [facility] [address] [id number] [address] [place] [address], [place] [address] Nov, [facility] [address] [id number] [address] [place] [address], [place] [address] Nov, [facility] [address] [id number] [address] [place] [address], [place] [address] Nov, [facility] [address] [id number] [address] [place] [address], [place] [address] Nov, [facility] [address] [id number] [address] [place] [address], [place] [address] Nov, [facility] [address] [id number] [address] [place] [address], [place] [address] Nov, [facility] [address] [id number] [address] [place] [address], [place] [address] Nov, [facility] [address] [id number] [address] [place] [address], [place] [address] Nov, [facility] [address] [id number] [facility] [place] [address] Nov, [facility] [address] [id number] [address] [place] [address], [place] [address] October, [facility] [address] [id number] [address] [place] [address], [place] [address] October, [facility] [address] [id number] [address] [place] [address], [place] [address] October, [facility] [address] [id number] [address] [place] [address], [place] [address] October, [facility] [address] [id number] [address] [place] [address], [place] [address] Sep, [facility] [address] [id number] [address] [place] [address], [place] [address] Sep, [facility] [address] [id number] [address] [place] [address], [place] [address] Sep, [facility] [address] [id number] [address] [place] [address], [place] [address] Sep, [facility] [address] [id number] [address] [place] [address], [place] [address] Sep, [facility] [address] [id number] [address] [place] [address], [place] [address] Sep, [facility] [address] [id number] [address] [place] [address], [place] [address] Sep, [facility] [address] [id number] [address] [place] [address], [place] [address] Sep, [facility] [address] [id number] [address] [place] [address], [place] [address] Sep, [facility] [address] [id number] [address] [place] [address], [place] [address] Aug, [facility] [address] [id number] [address] [place] [address], [place] [address] Aug, [facility] [address] [id number] [facility] [place] [address] Aug, [facility] [address] [id number] [facility] [place] [address] Aug, [facility] [address] [id number] [facility] [place] [address] Aug, [facility] [address] [id number] [address] [place] [address], [place] [address] Aug, [facility] [address] [id number] [address] [place] [address], [place] [address] Aug, [facility] [address] [id number] [address] [place] [address], [place] [address] Aug, [facility] [address] [id number] [address] [place] [address], [place] [address] Jul, [facility] [address] [id number] [address] [place] [address], [place] [address] Jul, [facility] [address] [id number] [address] [place] [address], [place] [address] Jun, [facility] [address] [id number] [address] [place] [address], [place] [address] Jun, [facility] [address] [id number] [address] [place] [address], [place] [address] Jun, [facility] [address] [id number] [address] [place] [address], [place] [address] Jun, [facility] [address] [id number] [address] [place] [address], [place] [address] Jun, [facility] [address] [id number] [address] [place] [address], [place] [address] Jun, [facility] [address] [id number] [address] [place] [address], [place] [address] Jun, [facility] [address] [id number] [address] [place] [address], [place] [address] 15 Jun, 2013 [facility] [address] [id number] [address] [place] [address], [place] [address] 15 Jun, 2013 [facility] [address] [id number] [address] [place] [address], [place] [address] 14 Jun, 2013 [facility] [address] [id number] [address] [place] [address], [place] [address] 02 Jun, 2013 [facility] [address] [id number] [address] [place] [address], [place] [address] 02 Jun, 2013 [facility] [address] [id number] [address] [place] [address], [place] [address] 31 May, 2013 [facility] [address] [id number] [address] [place] [address], [place] [address] 31 May, 2013 [facility] [address] [id number] [address] [place] [address], [place] [address] 31 May, 2013 [facility] [address] [id number] [address] [place] [address], [place] [address] 31 May, 2013 [facility] [address] [id number] [address] [place] [address], [place] [address] 31 May, 2013 [facility] [address] [id number] [address] [place] [address], [place] [address] 31 May, 2013 [facility] [address] [id number] [address] [place] [address], [place] [address] 26 May, 2013 [facility] [address] [id number] [address] [place] [address], [place] [address] 23 May, 2013 [facility] [address] [id number] [address] [place] [address], [place] [address] 23 May, 2013 [facility] [address] [id number] [address] [place] [address], [place] [address] 16 May, 2013 [facility] [address] [id number] [address] [place] [address], [place] [address] 16 May, 2013 [facility] [address] [id number] [address] [place] [address], [place] [address] May, [facility] [address] [id number] [address] [place] [address], [place] [address] May, [facility] [address] [id number] [address] [place] [address], [place] [address] Apr, [facility] [address] [id number] [address] [place] [address], [place] [address] Apr, [facility] [address] [id number] [address] [place] [address], [place] [address] Mar, [facility] [address] [id number] [address] [place] [address], [place] [address] Mar, [facility] [address] [id number] [address] [place] [address], [place] [address] Feb, [facility] [address] [id number] [address] [place] [address], [place] [address] Feb, [facility] [address] [id number] [address] [place] [address], [place] [address] Feb, [facility] [address] [id number] [address] [place] [address], [place] [address] Feb, [facility] [address] [id number] [address] [place] [address], [place] [address] Jan, [facility] [address] [id number] [address] [place] [address], [place] [address] Jan, [facility] [address] [id number] [address] [place] [address], [place] [address] Jan, [facility] [address] [id number] [address] [place] [address], [place] [address] Jan, [facility] [address] [id number] [address] [place] [place] [address], [place] [address] Jan, [facility] [address] [id number] [address] [place] [address], [place] [address] Jan, [facility] [address] [id number] [address] [place] [address], [place] [address] Dec, [facility] [address] [id number] [address] [place] [address], [place] [address] Dec, [facility] [address] [id number] [address] [place] [address], [place] [address] Dec, [facility] [address] [id number] [address] [place] [address], [place] [address] Dec, [facility] [address] [id number] [address] [place] [address], [place] [address] Nov, [facility] [address] [id number] [address] [place] [address], [place] [address] October, [facility] [address] [id number] [address] [place] [address], [place] [address] October, [facility] [address] [id number] [address] [place] [address], [place] [address] October, [facility] [address] [id number] [address] [place] [address], [place] [address] Sep, [facility] [address] [id number] [address] [place] [address], [place] [address] Sep, [facility] [address] [id number] [address] [place] [address], [place] [address] Jun, [facility] [address] [id number] [address] [place] [address], [place] [address] Jun, [facility] [address] [id number] [address] [place] [address], [place] [address] Jun, [facility] [address] [id number] [address] [place] [address], [place] [address] Apr, [facility] [address] [id number] [address] [place] [address], [place] [address] Apr, [facility] [address] [id number] [address] [place] [address], [place] [address] Apr, [facility] [address] [id number] [address] [place] [address], [place] [address] Apr, [facility] [address] [id number] [address] [place] [address], [place] [address] Mar, [facility] [address] [id number] [address] [place] [address], [place] [address] Mar, [facility] [address] [id number] [address] [place] [address], [place] [address] Mar, [facility] [address] [id number] [address] [place] [address], [place] [address] Mar, [facility] [address] [id number] [address] [place] [address], [place] [address] Feb, [facility] [address] [id number] [address] [place] [address], [place] [address] Feb, [facility] [address] [id number] [address] [place] [address], [place] [address] Feb, [facility] [address] [id number] [address] [place] [address], [place] [address] Jan, [facility] [address] [id number] [address] [place] [address], [place] [address] Jan, [facility] [address] [id number] [address] [place] [address], [place] [address] Jan, [facility] [address] [id number] [address] [place] [address], [place] [address] Jan, [facility] [address] [id number] [address] [place] [address], [place] [address] Dec, [facility] [address] [id number] [address] [place] [address], [place] [address] Dec, [facility] [address] [id number] [address] [place] [address], [place] [address] Nov, [facility] [address] [id number] [address] [place] [address], [place] [address] Nov, [facility] [address] [id number] [address] [place] [address], [place] [address] October, [facility] [address] [id number] [address] [place] [address], [place] [address] October, [facility] [address] [id number] [address] [place] [address], [place] [address] October, [facility] [address] [id number] [address] [place] [address], [place] [address] Sep, [facility] [address] [id number] [address] [place] [address], [place] [address] Sep, [facility] [address] [id number] [address] [place] [address], [place] [address] Sep, [facility] [address] [id number] [address] [place] [address], [place] [address] Aug, [facility] [address] [id number] [address] [place] [address], [place] [address] Aug, [facility] [address] [id number] [address] [place] [address], [place] [address] Aug, [facility] [address] [id number] [address] [place] [address], [place] [address] Aug, [facility] [address] [id number] [address] [place] [address], [place] [address] Aug, [facility] [address] [id number] [address] [place] [address], [place] [address] 23 Jul, 2011 [facility] [address] [id number] [address] [place] [address], [place] [address] 16 Jul, 2011 [facility] [address] [id number] [address] [place] [address], [place] [address] 13 Jul, 2011 [facility] [address] [id number] [address] [place] [address], [place] [address] 09 Jul, 2011 [facility] [address] [id number] [address] [place] [address], [place] [address] Jul, [facility] [address] [id number] [address] [place] [address], [place] [address] Jul, [facility] [address] [id number] [address] [place] [address], [place] [address] Jul, [facility] [address] [id number] [address] [place] [address], [place] [address] Jul, [facility] [address] [id number] [address] [place] [address], [place] [address] Jun, [facility] [address] [id number] [address] [place] [address], [place] [address] Jun, [facility] [address] [id number] [address] [place] [address], [place] [address] May, [facility] [address] [id number] [address] [place] [address], [place] [address] May, [facility] [address] [id number] [address] [place] [address], [place] [address] May, [facility] [address] [id number] [address] [place] [address], [place] [address] May, [facility] [address] [id number] [address] [place] [address], [place] [address] Apr, [facility] [address] [id number] [address] [place] [address], [place] [address] Apr, [facility] [address] [id number] [address] [place] [address], [place] [address] Apr, [facility] [address] [id number] [address] [place] [address], [place] [address] Mar, [facility] [address] [id number] [address] [place] [address], [place] [address] Mar, [facility] [address] [id number] [address] [place] [address], [place] [address] 18 Mar, 2011 [facility] [address] [id number] [address] [place] [address], [place] [address] 2011 [facility] [address] [id number] [address] [place] [address], [place] [address] Dec, [facility] [address] [id number] [address] [place] [address], [place] [address] October, [facility] [address] [id number] [address] [place] [address], [place] [address] 28 May, 2010 [facility] [address] [id number] [address] [place] [address], [place] [address] 13 May, 2010 [facility] [address] [id number] [address] [place] [address], [place] [address] 13 May, 2010 [facility] [address] [id number] [address] [place] [address], [place] [address] 06 May, 2010 [facility] [address] [id number] [address] [place] [address], [place] [address] Mar, [facility] [address] [id number] [address] [place] [address] Mar, [facility] [address] [id number] [address] [place] [address], [place] [address] 31 May, 2009 [facility] [address] [id number] [address] [place] [address] 30 May, 2009 [facility] [address] [id number] [address] [place] [address], [place] [address] May, [facility] [address] [id number] [address] [place] [address], [place] [address] 08 May, 2009 [facility] [address] [id number] [address] [place] [address] Apr, [facility] [address] [id number] [address] [place] [address] Apr, [facility] [address] [facility] [id number] [address] [address] October, IMMUNIZATIONS No Known Immunizations SOCIAL HISTORY [...]
--- OUTSIDE RECORDS SUMMARY | 2020-01-13 11:48 | XMS REPORT ---
Author Author Monique RAHMAN [facility] Address [address] [place] [address] Care Team Providers Care Drum Filler Name Role Phone RASHEED RAHMAN Unavailable PROBLEMS Type Condition ICD9-CM Code STP03-LJ Code Onset Dates Condition S tatus SNOMED Code Problem History of illicit drug use Z87.898 Ac tive 802302556 Problem Snoring R06.83 Active 96649566 Problem Impaired circulation I99.9 Active 66928165 Problem MRSA (methicillin resistant staph aureus) culture positive Z22.322 Active 024462840 Problem Panic disorder without agoraphobia F41.0 Active 09555203 Problem Dysthymic disorder F34.1 Active 7 0020662 Problem Mood disorder F39 Active 845388 05 Problem Arthritis M19.90 Active 1238414 Problem Mild chronic obstructive pulmonary disease J44.9 Active 058628341 Problem Mild persistent asthma without complication J45.30 Active 798603113 Problem Essential hypertension I10 Active 75403007 Problem On home oxygen therapy Z99.81 Active 361237568403 Problem Social phobia F40.10 Active 969239 02 Problem Neuropathy G62.9 Active 176272553 Problem 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 Active 992509195 Problem Major depressive disorder, recurrent episode, moderate F33.1 Active 883025166 Problem Psychotic disorder F29 Active 6 5963733 Problem Hypertension, benign I10 Active 14974074 Problem Onychomycosis B35.1 Active 030033 008 Problem Body mass index (BMI) 40.0-44.9, adult Z68.41 Active 673514805 Problem Varicose veins of both lower extremities I83.93 Active 44918185 Problem Sciatica, left side M54.32 Active 12959327 Problem Agoraphobia F40.00 Active 53556734 Problem Fatigue R53.83 Active 93284474 Problem Major depressive disorder in full remission F32.5 Active 89354113 Problem Slow transit constipation K59.01 Acti ve 94559233 Problem Chronic obstructive pulmonary disease, unspecified COPD ty pe J44.9 Active 23755181 Problem Unspecified psychosis not du e to a substance or known physiological condition F29 Active 000579510 ALLERGIES No Information ENCOUNTERS Encounter Location Date Diagnosis [place] [address] [address] Nov, [place] [address] [address] Sep, Major depressive disorder, r ecurrent episode, moderate F33.1 ; Panic disorder without agoraphobia F41.0 and Morbid obesity E66.01 [place] [address] [address] Aug, Bronchitis J40 [place] [address] [address] Aug, Sciatica, left side M54.32 a nd Morbid obesity E66.01 [place] [address] [address] Aug, [place] [address] [address] Aug, Sciatica, left side M54.32 [place] [address] [address] Aug, Neuropathy G62.9 ; Onychomyc osis B35.1 ; Callus of foot L84 and Skin fissures R23.4 [place] [address] [place] [id number] [place] [address] Jul, [place] [address] [address] Jul, Morbid obesity E66.01 [place] [address] [address] Jul, Unspecified psychosis not du e to a substance or known physiological condition F29 ; Chronic obstructive pulmonary disease, unspecified COPD type J44.9 and Body mass index (BMI) 40.0-44.9, adult Z68.41 [place] [address] [place] [id number] [place] [address] Jun, [place] [address] [place] [id number] [place] [address] Jun, Morbid obesity E66.01 [place] [address] [place] [id number] [place] [address] May, Morbid obesity E66.01 [place] [address] [address] May, Encounter for immunization Z 23 [place] [address] [place] [id number] [place] [address] May, Major depressive disorder, r ecurrent episode, moderate F33.1 ; Panic disorder without agoraphobia F41.0 and Morbid obesity E66.01 [place] [address] [place] [id number] [place] [address] May, Major depressive disorder in full remission F32.5 and Panic disorder without agoraphobia F41.0 [place] [address] [place] [id number] [place] [address] Apr, Morbid obesity E66.01 [place] [address] [place] [id number] [place] [address] Apr, Slow transit constipation K5 9.01 and Cellulitis of left lower extremity L03.116 [place] [address] [place] [id number] [place] [address] Apr, Morbid obesity E66.01 [place] [address] [place] [id number] [place] [address] Apr, [place] [address] [place] [id number] [place] [address] Apr, Major depressive disorder, r ecurrent episode, moderate F33.1 and Panic disorder without agoraphobia F41.0 [place] [address] [address] Mar, Viral upper respiratory trac t infection J06.9 [place] [address] [place] [id number] [place] [address] Mar, Bronchitis J40 and Encounter for immunization Z23 [place] [address] [address] Mar, Morbid obesity E66.01 [place] [address] [address] Feb, Major depressive disorder, r ecurrent episode, moderate F33.1 and Panic disorder without agoraphobia F41.0 [place] [address] [address] Feb, Morbid obesity E66.01 [place] [address] [address] 06 Feb, 2019 Onychomycosis B35.1 ; 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 and Xerosis of skin L85.3 [place] [address] [address] 04 Feb, 2019 Major depressive disorder, r ecurrent episode, moderate F33.1 ; Panic disorder without agoraphobia F41.0 and Morbid obesity E66.01 [place] [address] [place] [id number] [place] [address] Jan, Major depressive disorder in full remission F32.5 and Panic disorder without agoraphobia F41.[address] [address] Jan, Pneumonia of both lower lobe s due to infectious organism J18.1 and Morbid obesity E66.01 [place] [address] [address] Jan, [facility] [address] [facility] [id number] [address] [place] [address] Jan, Major depressive disorder in full remission F32.5 and Panic disorder without agoraphobia F41.0 [place] [id number] [facility] [id number] [address] [place] [address] Jan, [place] [address] [place] [id number] [place] [address] Jan, Major depressive disorder, r ecurrent episode, moderate F33.1 ; Panic disorder without agoraphobia F41.0 and Morbid obesity E66.01 [place] [address] [place] [id number] [place] [address] Dec, Bilious vomiting with nausea R11.14 ; Coughing R05 and Choking, subsequent encounter T17.308D [place] [address] [address] Dec, Morbid obesity E66.01 [place] [address] [place] [id number] [place] [address] Dec, Major depressive disorder, r ecurrent episode, moderate F33.1 and Panic disorder without agoraphobia F41.0 [place] [address] [place] [id number] [place] [address] Dec, [place] [address] [place] [id number] [place] [address] Dec, Major depressive disorder, r ecurrent episode, moderate F33.1 [place] [address] [facility] [id number] [address] [place] [address] Nov, Major depressive disorder, r ecurrent episode, moderate F33.1 ; Panic disorder without agoraphobia F41.0 and Morbid obesity E66.01 [facility] [address] [place] [id number] [place] [address] Nov, Morbid obesity E66.01 [place] [address] [address] Nov, Major depressive disorder, r ecurrent episode, moderate F33.1 and Panic disorder without agoraphobia F41.0 [facility] [address] [address] Nov, Allergic reaction, initial e ncounter T78.40XA and Morbid obesity E66.01 [place] [address] [address] Nov, [place] [address] [address] Nov, Morbid obesity E66.01 ; Swal lowing problem R13.10 and Hypertension, benign I10 [facility] [place] [address] [address] Nov, Morbid obesity E66.01 ; COPD exacerbation J44.1 and Non- recurrent acute suppurative otitis media of left ear without spontaneous rupture of tympanic membrane H66.002 [place] [address] [address] Nov, Onychomycosis B35.1 ; Neurop athy G62.9 and Fissure in skin of foot R23.4 [place] [address] [address] October, Major depressive disorder, r ecurrent episode, moderate F33.1 ; Panic disorder without agoraphobia F41.0 and Morbid obesity E66.01 [facility] [address] [place] [id number] [place] [address] October, Viral upper respiratory trac t infection J06.9 [place] [address] [place] [id number] [place] [address] October, [place] [address] [address] October, Major depressive disorder, r ecurrent episode, moderate F33.1 and Panic disorder without agoraphobia F41.0 [facility] [address] [id number] [address] [place] [address] October, [facility] [address] [facility] [id number] [address] [place] [address] October, [facility] [address] [facility] [id number] [address] [place] [address] October, [facility] [address] [facility] [id number] [address] [place] [address] October, [facility] [address] [id number] [address] [place] [address] October, [facility] [address] [facility] [id number] [address] [place] [address] October, [facility] [address] [facility] [id number] [address] [place] [address] October, Major depressive disorder, r ecurrent episode, moderate F33.1 and Panic disorder without agoraphobia F41.0 [facility] [address] [facility] [id number] [address] [place] [address] Sep, Morbid obesity E66.01 and Vane mbar neuritis M54.16 [facility] [address] [facility] [id number] [address] [place] [address] Sep, Panic disorder without agora phobia F41.0 and Major depressive disorder, recurrent episode, moderate F33.1 [facility] [address] [facility] [id number] [address] [place] [address] Sep, Gastroenteritis K52.9 ; Low back pain M54.5 ; Other chronic pain G89.29 and Morbid obesity E66.01 [facility] [address] [facility] [id number] [address] [place] [address] Sep, Major depressive disorder, r ecurrent episode, moderate F33.1 ; Panic disorder without agoraphobia F41.0 and Social phobia F40.10 [place] [address] [address] Sep, Panic disorder without agora phobia F41.0 [place] [address] [address] Sep, Panic disorder without agora phobia F41.0 [place] [address] [address] Aug, Panic disorder without agora phobia F41.0 ; Major depressive disorder, recurrent episode, moderate F33.1 ; Social phobia F40.10 ; Psychotic disorder F29 ; Tardive dyskinesia G24.01 and Morbid obesity E66.01 [place] [address] [address] Aug, Dysthymic disorder F34.1 and Psychotic disorder F29 [place] [address] [address] Aug, Encounter for Medicare ann l wellness exam Z00.00 ; Morbid obesity E66.01 and 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 [place] [address] [address] Aug, Dysthymic disorder F34.1 and Psychotic disorder F29 [place] [address] [address] Aug, Neuropathy G62.9 ; Onychomyc osis B35.1 and Xerosis of skin L85.3 [place] [address] [address] Jul, [place] [address] [address] Jul, Mood disorder F39 ; Wheezing R06.2 ; Choking, initial encounter T17.308A and Coughing R05 [place] [address] [address] Jul, Low back pain M54.5 [facility] [address] [facility] [id number] [address] [place] [address] Jun, Flu-like symptoms R68.89 ; B NM 45.0-49.9, adult Z68.42 ; COPD exacerbation J44.1 and Acute bronchitis J20.9 [facility] [address] [place] [id number] [place] [address] Jun, [facility] [address] [place] [id number] [place] [address] May, [place] [address] [address] May, Onychomycosis B35.1 and 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 [place] [address] [address] May, Low back pain M54.5 and Abdoulaye a leg R60.0 [place] [address] [place] [id number] [place] [address] 11 May, 2018 BMI 45.0-49.9, adult Z68.42 ; Well woman exam with routine gynecological exam Z01.419 and Breast cancer screening Z12.31 [place] [address] [place] [id number] [place] [address] Apr, Arthritis M19.90 [place] [address] [place] [id number] [place] [address] 16 Apr, 2018 Arthritis M19.90 and Otalgia of both ears H92.03 [place] [address] [place] [id number] [place] [address] Feb, [place] [address] [address] Feb, Low back pain M54.5 ; Other chronic pain G89.29 ; Exertional asthma J45.990 and Encounter for immunization Z23 [place] [address] [place] [id number] [place] [address] Feb, Skin fissures R23.4 ; Neurop athy G62.9 and Onychomycosis B35.1 [place] [address] [address] 05 Feb, 2018 Dysthymic disorder F34.1 [place] [address] [address] Feb, [place] [address] [address] Jan, [place] [address] [address] Jan, Abrasion of right elbow, ini tial encounter S50.311A ; Abrasion, right knee, initial encounter S80.211A and Sprain of other ligament of right ankle, initial encounter S93.491A [place] [address] [address] Jan, [facility] [address] [address] Jan, Injury of left ankle, initia l encounter S99.912A ; Fall down stairs, initial encounter W10.8XXA and BMI 45.0-49.9, adult Z68.42 [place] [address] [address] Jan, COPD exacerbation J44.1 [place] [address] [address] 13 Jan, 2018 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 [place] [address] [address] 08 Jan, 2018 Bronchitis J40 and Acute sup purative otitis media of left ear without spontaneous rupture of tympanic membrane, recurrence not specified H66.002 [place] [address] [address] Jan, [place] [id number] [place] [id number] [place] [address] Jan, Bronchitis J40 and BMI 40.0- 44.9, adult Z68.41 [place] [address] [place] [id number] [place] [address] Jan, [place] [address] [place] [id number] [place] [address] Dec, Gastric pain R10.9 [place] [address] [place] [id number] [place] [address] Dec, [place] [address] [address] Dec, History of illicit drug use Z87.898 ; Neuropathy G62.9 ; COPD (chronic obstructive pulmonary disease) with chronic bronchitis J44.9 and Acute pain of right knee M25.561 [place] [address] [place] [id number] [place] [address] Nov, [place] [address] [address] Nov, Onychomycosis B35.1 and Cont usion of left foot, subsequent encounter S90.32XD [place] [address] [address] Nov, COPD exacerbation J44.1 [place] [address] [place] [id number] [place] [address] Sep, [place] [address] [place] [id number] [place] [address] Sep, Dysthymic disorder F34.1 ; T obacco abuse Z72.0 ; Pain in right knee M25.561 ; Pain in left knee M25.562 ; Other chronic pain G89.29 and BMI 40.0- 44.9, adult Z68.41 [place] [address] [place] [id number] [place] [address] 22 Aug, 2017 Major depressive disorder, r ecurrent episode, moderate F33.1 and Social phobia F40.10 [place] [address] [address] 14 Aug, 2017 Dysthymic disorder F34.1 ; N on-pressure chronic ulcer of left thigh, unspecified ulcer stage L97.129 ; Tobacco abuse Z72.0 ; Mild chronic obstructive pulmonary disease J44.9 and Forgetfulness R68.89 [place] [address] [address] 09 Aug, 2017 Onychomycosis B35.1 ; Fissur e in skin of foot R23.4 and Foot callus L84 [facility] [address] [address] 26 Jul, 2017 Right medial knee pain M25.5 61 ; Upper respiratory tract infection, unspecified type J06.9 and BMI 40.0-44.9, adult Z68.41 [facility] IN [place] [address] [address] 08 Jul, 2017 Nausea and vomiting, intract ability of vomiting not specified, unspecified vomiting type R11.2 ; Left ear pain H92.02 and Gastric pain R10.9 [place] [address] [address] Apr, Encounter for immunization Z 23 [place] [address] [address] Apr, Onychomycosis B35.1 ; Xerosi s of skin L85.3 ; Neuropathy G62.9 and 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 [place] [address] [place] [id number] [place] [address] Jan, Onychomycosis B35.1 and Neur opathy G62.9 [place] [address] [address] Dec, [facility] [address] [id number] [address] [place] [address] Dec, [facility] [address] [id number] [address] [place] [address] Nov, [facility] [address] [facility] [id number] [address] [place] [address] Aug, [facility] [address] [id number] [address] [place] [address] Aug, [facility] [address] [id number] [address] [place] [address] Jul, [facility] [address] [facility] [id number] [address] [place] [address] Jul, [facility] [address] [facility] [id number] [address] [place] [address] Jul, Decubitus ulcer of left thig h, stage 2 L89.892 [facility] [address] [facility] [id number] [address] [place] [address] 17 Jul, 2016 Decubitus ulcer of left thig h, stage 2 L89.892 [facility] [address] [facility] [id number] [address] [place] [address] 17 Jul, 2016 [facility] [address] [facility] [id number] [address] [place] [address] 15 Jul, 2016 Decubitus ulcer of left thig h, stage 2 L89.892 [facility] [address] [facility] [id number] [address] [place] [address] 14 Jul, 2016 [facility] [address] [facility] [id number] [address] [place] [address] 13 Jul, 2016 Cellulitis of other specifie d site L03.818 ; Illicit drug use F19.90 and Decubitus ulcer of left thigh, stage 2 L89.892 [facility] [address] [facility] [id number] [address] [place] [address] 08 Jul, 2016 [facility] [address] [place] [id number] [place] [address] Jul, Cellulitis of right breast N 61.0 [place] [address] [facility] [id number] [address] [place] [address] Jun, [facility] [address] [address] Jun, [facility] [address] [place] [id number] [place] [address] Jun, Wheezing R06.2 and Arthralgi a, unspecified joint M25.50 [place] [address] [place] [id number] [place] [address] May, [place] [address] [address] May, [place] [address] [place] [id number] [place] [address] May, [place] [address] [address] 05 May, 2016 Shortness of breath R06.02 [place] [address] [address] May, Onychomycosis B35.1 and Fiss ure in skin of foot R23.4 [facility] [address] [place] [id number] [place] [id number] Apr, [facility] [address] [address] 18 Apr, 2016 Dizziness R42 [place] [address] [place] [id number] [place] [address] 14 Apr, 2016 Shortness of breath R06.02 ; Essential hypertension I10 ; Dizziness R42 and On home oxygen therapy Z99.81 [place] [address] [id number] [address] [place] [address] Apr, [facility] [address] [id number] [address] [place] [address] Apr, [facility] [address] [id number] [address] [place] [address] Apr, [facility] [address] [id number] [address] [place] [address] Apr, [facility] [address] [id number] [address] [place] [address] Apr, [facility] [address] [id number] [address] [place] [address] Apr, [facility] [address] [id number] [address] [place] [address] Apr, [facility] [address] [id number] [address] [place] [address] Mar, Mild chronic obstructive pul monary disease J44.9 [facility] [address] [id number] [address] [place] [address] Mar, [facility] [address] [id number] [address] [place] [address] Mar, Epigastric pain R10.13 ; Low back pain M54.5 ; Other chronic pain G89.29 and Breast cancer screening Z12.39 [facility] [address] [id number] [address] [place] [address] Mar, [facility] [address] [id number] [address] [place] [id number] Mar, [facility] [address] [id number] [address] [place] [id number] Feb, [facility] [address] [id number] [address] [place] [id number] Feb, [facility] [address] [id number] [address] [place] [id number] 02 Feb, 2016 Fissure in skin of foot R23. 4 and Onychomycosis B35.1 [place] [address] [address] [facility] [id number] [address] [place] [id number] Jan, Agoraphobia F40.00 [place] [address] [address] [facility] [id number] [address] [place] [phone] Dec, Agoraphobia F40.00 [place] [address] [address] [facility] [id number] [address] [place] [id number] Dec, Mild persistent asthma witho ut complication J45.30 ; Dysthymic disorder F34.1 and Upper respiratory tract infection, unspecified type J06.9 [place] [address] [address] [facility] [id number] [address] [place] [id number] Nov, Agoraphobia F40.00 [place] [address] [address] [place] [id number] [address] [place] [id number] October, Agoraphobia F40.00 [place] [address] [address] [place] [id number] [address] [place] [id number] Sep, Panic disorder without agora phobia F41.0 ; Agoraphobia F40.00 and Dysthymic disorder F34.1 [place] [address] [place] [id number] [address] [place] [address] Sep, Panic attacks F41.0 [place] [address] [facility] [id number] [address] [place] [address] Sep, [place] [address] [facility] [id number] [address] [place] [address] Sep, Panic disorder without agora phobia F41.0 ; Varicose veins of both lower extremities I83.93 and Fatigue R53.83 [place] [address] [facility] [id number] [address] [place] [address] 14 Sep, 2015 Fatigue R53.83 [place] [id number] [place] [address] Sep, [facility] [address] [place] [id number] [address] [place] [address] Aug, [place] [address] [place] [id number] [address] [place] [address] Aug, [place] [address] [address] Aug, Type 2 diabetes mellitus wit h diabetic neuropathic arthropathy E11.610 [place] [address] [place] [id number] [address] [place] [address] Aug, Panic disorder without agora phobia F41.0 ; Agoraphobia F40.00 and Dysthymic disorder F34.1 [place] [address] [place] [id number] [address] [place] [address] Aug, Shortness of breath R06.02 ; Panic attacks F41.0 ; COPD (chronic obstructive pulmonary disease) J44.9 ; Tobacco abuse Z72.0 ; Family history of diabetes mellitus Z83.3 and Weight gain R63.5 [place] [address] [address] Aug, [place] [address] [place] [id number] [address] [place] [address] Jul, [place] [address] [address] Jun, Onychomycosis B35.1 ; Neurop athy G62.9 and Impaired circulation I99.9 [place] [address] [place] [id number] [address] [place] [address] 09 Mar, 2015 Fissure in skin of foot R23. 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 [place] [id number] [place] [address] 18 Feb, 2015 Family history of coronary a rteriosclerosis V17.3 [facility] [address] [id number] [address] [place] [address] 15 Feb, 2015 Allergic rhinitis due to darien agnieszka 477.0 ; Unspecified breast screening V76.10 ; Anxiety 300.00 and Family history of coronary arteriosclerosis V17.3 [facility] [address] [id number] [address] [place] [address] Jan, [facility] [address] [id number] [address] [place] [address] Dec, [facility] [address] [id number] [address] [place] [address] Dec, Onychomycosis 110.1 and Skin fissures 709.8 [facility] [address] [id number] [address] [place] [address] Sep, [facility] [address] [id number] [address] [place] [address] Sep, [facility] [address] [id number] [address] [place] [address] Aug, [facility] [address] [id number] [address] [place] [address] Aug, [facility] [address] [id number] [address] [place] [address] Jul, [facility] [address] [id number] [address] [place] [address] Jul, [facility] [address] [id number] [address] [place] [address] Jun, [facility] [address] [id number] [address] [place] [address] Jun, [facility] [address] [id number] [address] [place] [address] Jun, [facility] [address] [facility] [id number] [address] [place] [address] Jun, [facility] [address] [id number] [address] [place] [address], [place] [address] Jun, [facility] [address] [id number] [address] [place] [address], [place] [address] May, [facility] [address] [id number] [address] [place] [address], [place] [address] May, [facility] [address] [id number] [address] [place] [address], [place] [address] May, [facility] [address] [id number] [address] [place] [address], [place] [address] May, [facility] [address] [id number] [address] [place] [address], [place] [address] May, [facility] [address] [id number] [address] [place] [address], [place] [address] May, [facility] [address] [id number] [address] [place] [address], [place] [address] May, [facility] [address] [id number] [address] [place] [address], [place] [address] May, [facility] [address] [id number] [address] [place] [address], [place] [address] Apr, [facility] [address] [id number] [address] [place] [address], [place] [address] Apr, [facility] [address] [id number] [address] [place] [address], [place] [address] Apr, [facility] [address] [id number] [address] [place] [address], [place] [address] Apr, [facility] [address] [id number] [address] [place] [address], [place] [address] Apr, [facility] [address] [id number] [address] [place] [address], [place] [address] Apr, [facility] [address] [id number] [address] [place] [address], [place] [address] 07 Apr, 2014 [facility] [address] [id number] [address] [place] [address], [place] [address] Apr, [facility] [address] [id number] [address] [place] [address], [place] [address] Apr, [facility] [address] [id number] [address] [place] [address], [place] [address] Apr, [facility] [address] [id number] [address] [place] [address], [place] [address] Mar, [facility] [address] [id number] [address] [place] [address], [place] [address] Mar, [facility] [address] [id number] [address] [place] [address], [place] [address] Mar, [facility] [address] [id number] [address] [place] [address], [place] [address] Mar, [facility] [address] [id number] [address] [place] [address], [place] [address] Mar, [facility] [address] [id number] [address] [place] [address], [place] [address] Mar, [facility] [address] [id number] [address] [place] [address], [place] [address] Mar, [facility] [address] [id number] [address] [place] [address], [place] [address] Mar, [facility] [address] [id number] [address] [place] [address], [place] [address] Mar, [facility] [address] [id number] [address] [place] [address], [place] [address] Mar, [facility] [address] [id number] [address] [place] [address], [place] [address] Mar, [facility] [address] [id number] [address] [place] [address], [place] [address] Mar, [facility] [address] [id number] [address] [place] [address], [place] [address] 22 Mar, 2013 [facility] [address] [id number] [address] [place] [address], [place] [address] 22 Mar, 2013 [facility] [address] [id number] [address] [place] [address], [place] [address] 22 Mar, 2013 [facility] [address] [id number] [address] [place] [address], [place] [address] 20 Mar, 2013 [facility] [address] [id number] [address] [place] [address], [place] [address] 20 Mar, 2013 [facility] [address] [id number] [address] [place] [address], [place] [address] 16 Mar, 2014 [facility] [address] [id number] [address] [place] [address], [place] [address] 16 Mar, 2014 [facility] [address] [id number] [address] [place] [address], [place] [address] 15 Mar, 2014 [facility] [address] [id number] [address] [place] [address], [place] [address] 14 Mar, 2014 [facility] [address] [id number] [address] [place] [address], [place] [address] 14 Mar, 2014 [facility] [address] [id number] [address] [place] [address], [place] [address] 14 Mar, 2014 [facility] [address] [id number] [address] [place] [address], [place] [address] 14 Mar, 2014 [facility] [address] [id number] [address] [place] [address], [place] [address] 09 Mar, 2014 [facility] [address] [id number] [address] [place] [address], [place] [address] 09 Mar, 2014 [facility] [address] [id number] [address] [place] [address], [place] [address] 09 Mar, 2014 [facility] [address] [id number] [address] [place] [address], [place] [address] 09 Mar, 2013 [facility] [address] [id number] [address] [place] [address], [place] [address] 30 Sep, 2013 [facility] [address] [id number] [address] [place] [address], [place] [address] 30 Feb, 2013 [facility] [address] [id number] [address] [place] [address], [place] [address] 30 Feb, 2013 [facility] [address] [id number] [address] [place] [address], [place] [address] 30 Feb, 2013 [facility] [address] [id number] [address] [place] [address], [place] [address] Feb, 2013 [facility] [address] [id number] [address] [place] [address], [place] [address] Feb, 2013 [facility] [address] [id number] [address] [place] [address], [place] [address] Feb, 2013 [facility] [address] [id number] [address] [place] [address], [place] [address] Feb, 2013 [facility] [address] [id number] [address] [place] [address], [place] [address] Feb, 2013 [facility] [address] [id number] [address] [place] [address], [place] [address] Feb, 2013 [facility] [address] [id number] [address] [place] [address], [place] [address] Feb, 2013 [facility] [address] [id number] [address] [place] [address], [place] [address] Feb, 2013 [facility] [address] [id number] [address] [place] [address], [place] [address] Jan, [facility] [address] [id number] [address] [place] [address], [place] [address] Jan, [facility] [address] [id number] [address] [place] [address], [place] [address] Jan, [facility] [address] [id number] [facility] [place] [address] Jan, [facility] [address] [id number] [address] [place] [address], [place] [address] Jan, [facility] [address] [id number] [address] [place] [address], [place] [address] Jan, [facility] [address] [id number] [address] [place] [address], [place] [address] Jan, [facility] [address] [id number] [address] [place] [address], [place] [address] Jan, [facility] [address] [id number] [address] [place] [address], [place] [address] Jan, [facility] [address] [id number] [address] [place] [address], [place] [address] Jan, [facility] [address] [id number] [address] [place] [address], [place] [address] Jan, [facility] [address] [id number] [address] [place] [address], [place] [address] Jan, [facility] [address] [id number] [address] [place] [address], [place] [address] Jan, [facility] [address] [id number] [address] [place] [address], [place] [address] Dec, [facility] [address] [id number] [address] [place] [address], [place] [address] Dec, [facility] [address] [id number] [address] [place] [address], [place] [address] Dec, [facility] [address] [id number] [address] [place] [address], [place] [address] Dec, [facility] [address] [id number] [address] [place] [address], [place] [address] Dec, [facility] [address] [id number] [address] [place] [address], [place] [address] Dec, [facility] [address] [id number] [address] [place] [address], [place] [address] Dec, 2013 [facility] [address] [id number] [address] [place] [address], [place] [address] Dec, 2013 [facility] [address] [id number] [address] [place] [address], [place] [address] Dec, 2013 [facility] [address] [id number] [address] [place] [address], [place] [address] Dec, 2013 [facility] [address] [id number] [address] [place] [address], [place] [address] Dec, 2013 [facility] [address] [id number] [address] [place] [address], [place] [address] Dec, 2013 [facility] [address] [id number] [address] [place] [address], [place] [address] Dec, 2013 [facility] [address] [id number] [address] [place] [address], [place] [address] Dec, 2013 [facility] [address] [id number] [address] [place] [address], [place] [address] Dec, [facility] [address] [id number] [address] [place] [address], [place] [address] Dec, [facility] [address] [id number] [address] [place] [address], [place] [address] Dec, [facility] [address] [id number] [address] [place] [address], [place] [address] Dec, [facility] [address] [id number] [address] [place] [address], [place] [address] Nov, [facility] [address] [id number] [address] [place] [address], [place] [address] Nov, [facility] [address] [id number] [address] [place] [address], [place] [address] Nov, [facility] [address] [id number] [address] [place] [address], [place] [address] Nov, [facility] [address] [id number] [address] [place] [address] Nov, [facility] [address] [id number] [address] [place] [address], [place] [address] Nov, [facility] [address] [id number] [address] [place] [address], [place] [address] Nov, [facility] [address] [id number] [address] [place] [address], [place] [address] Nov, [facility] [address] [id number] [address] [place] [address], [place] [address] Nov, [facility] [address] [id number] [address] [place] [address], [place] [address] Nov, [facility] [address] [id number] [address] [place] [address], [place] [address] Nov, [facility] [address] [id number] [address] [place] [address], [place] [address] Nov, [facility] [address] [id number] [address] [place] [address], [place] [address] Nov, [facility] [address] [id number] [address] [place] [address], [place] [address] Nov, [facility] [address] [id number] [address] [place] [address], [place] [address] Nov, [facility] [address] [id number] [address] [place] [address], [place] [address] Nov, [facility] [address] [id number] [address] [place] [address], [place] [address] Nov, [facility] [address] [id number] [address] [place] [address], [place] [address] Nov, [facility] [address] [id number] [address] [place] [address], [place] [address] Nov, [facility] [address] [id number] [address] [place] [address] Nov, [facility] [address] [id number] [address] [place] [address], [place] [address] October, [facility] [address] [id number] [address] [place] [address], [place] [address] October, [facility] [address] [id number] [address] [place] [address], [place] [address] October, [facility] [address] [id number] [address] [place] [address], [place] [address] October, [facility] [address] [id number] [address] [place] [address], [place] [address] Sep, [facility] [address] [id number] [address] [place] [address], [place] [address] Sep, [facility] [address] [id number] [address] [place] [address], [place] [address] Sep, [facility] [address] [id number] [address] [place] [address], [place] [address] Sep, [facility] [address] [id number] [address] [place] [address], [place] [address] Sep, [facility] [address] [id number] [address] [place] [address], [place] [address] Sep, [facility] [address] [id number] [address] [place] [address], [place] [address] Sep, [facility] [address] [id number] [address] [place] [address], [place] [address] Sep, [facility] [address] [id number] [address] [place] [address], [place] [address] Sep, [facility] [address] [id number] [address] [place] [address], [place] [address] Aug, [facility] [address] [id number] [address] [place] [address], [place] [address] Aug, [facility] [address] [id number] [address] [place] [address] Aug, [facility] [address] [id number] [address] [place] [address] Aug, [facility] [address] [id number] [address] [place] [address] Aug, [facility] [address] [id number] [address] [place] [address], [place] [address] Aug, [facility] [address] [id number] [address] [place] [address], [place] [address] Aug, [facility] [address] [id number] [address] [place] [address], [place] [address] Aug, [facility] [address] [id number] [address] [place] [address], [place] [address] Jul, [facility] [address] [id number] [address] [place] [address], [place] [address] Jul, [facility] [address] [id number] [address] [place] [address], [place] [address] Jun, [facility] [address] [id number] [address] [place] [address], [place] [address] Jun, [facility] [address] [id number] [address] [place] [address], [place] [address] Jun, [facility] [address] [id number] [address] [place] [address], [place] [address] Jun, [facility] [address] [id number] [address] [place] [address], [place] [address] Jun, [facility] [address] [id number] [address] [place] [address], [place] [address] Jun, [facility] [address] [id number] [address] [place] [address], [place] [address] Jun, [facility] [address] [id number] [address] [place] [address], [place] [address] 15 Jun, 2013 [facility] [address] [id number] [address] [place] [address], [place] [address] 15 Jun, 2013 [facility] [address] [id number] [address] [place] [address], [place] [address] 14 Jun, 2013 [facility] [address] [id number] [address] [place] [address], [place] [address] 02 Jun, 2013 [facility] [address] [id number] [address] [place] [address], [place] [address] 02 Jun, 2013 [facility] [address] [id number] [address] [place] [address], [place] [address] 31 May, 2013 [facility] [address] [id number] [address] [place] [address], [place] [address] 31 May, 2013 [facility] [address] [id number] [address] [place] [address], [place] [address] 31 May, 2013 [facility] [address] [id number] [address] [place] [address], [place] [address] 31 May, 2013 [facility] [address] [id number] [address] [place] [address], [place] [address] 31 May, 2013 [facility] [address] [id number] [address] [place] [address], [place] [address] 31 May, 2013 [facility] [address] [id number] [address] [place] [address], [place] [address] 26 May, 2013 [facility] [address] [id number] [address] [place] [address], [place] [address] 23 May, 2013 [facility] [address] [id number] [address] [place] [address], [place] [address] 23 May, 2013 [facility] [address] [id number] [address] [place] [address], [place] [address] 16 May, 2013 [facility] [address] [id number] [address] [place] [address], [place] [address] 16 May, 2013 [facility] [address] [id number] [address] [place] [address], [place] [address] May, [facility] [address] [id number] [address] [place] [address], [place] [address] May, [facility] [address] [id number] [address] [place] [address], [place] [address] Apr, [facility] [address] [id number] [address] [place] [address], [place] [address] Apr, [facility] [address] [id number] [address] [place] [address], [place] [address] Mar, [facility] [address] [id number] [address] [place] [address], [place] [address] Mar, [facility] [address] [id number] [address] [place] [address], [place] [address] Feb, [facility] [address] [id number] [address] [place] [address], [place] [address] Feb, [facility] [address] [id number] [address] [place] [address], [place] [address] Feb, [facility] [address] [id number] [address] [place] [address], [place] [address] Feb, [facility] [address] [id number] [address] [place] [address], [place] [address] Jan, [facility] [address] [id number] [address] [place] [address], [place] [address] Jan, [facility] [address] [id number] [address] [place] [address], [place] [address] Jan, [facility] [address] [id number] [address] [place] [address], [place] [address] Jan, [facility] [address] [id number] [address] [place] [address], [place] [address] Jan, [facility] [address] [id number] [address] [place] [address], [place] [address] Jan, [facility] [address] [id number] [address] [place] [address], [place] [address] Dec, [facility] [address] [id number] [address] [place] [address], [place] [address] Dec, [facility] [address] [id number] [address] [place] [address], [place] [address] Dec, [facility] [address] [id number] [address] [place] [address], [place] [address] Dec, [facility] [address] [id number] [address] [place] [address], [place] [address] Nov, [facility] [address] [id number] [address] [place] [address], [place] [address] October, [facility] [address] [id number] [address] [place] [address], [place] [address] October, [facility] [address] [id number] [address] [place] [address], [place] [address] October, [facility] [address] [id number] [address] [place] [address], [place] [address] Sep, [facility] [address] [id number] [address] [place] [address], [place] [address] Sep, [facility] [address] [id number] [address] [place] [address], [place] [address] Jun, [facility] [address] [id number] [address] [place] [address], [place] [address] Jun, [facility] [address] [id number] [address] [place] [address], [place] [address] Jun, [facility] [address] [id number] [address] [place] [address], [place] [address] Apr, [facility] [address] [id number] [address] [place] [address], [place] [address] Apr, [facility] [address] [id number] [address] [place] [address], [place] [address] Apr, [facility] [address] [id number] [address] [place] [address], [place] [address] Apr, [facility] [address] [id number] [address] [place] [address], [place] [address] Mar, [facility] [address] [id number] [address] [place] [address], [place] [address] Mar, [facility] [address] [id number] [address] [place] [address], [place] [address] Mar, [facility] [address] [id number] [address] [place] [address], [place] [address] Mar, [facility] [address] [id number] [address] [place] [address], [place] [address] Feb, [facility] [address] [id number] [address] [place] [address], [place] [address] Feb, [facility] [address] [id number] [address] [place] [address], [place] [address] Feb, [facility] [address] [id number] [address] [place] [address], [place] [address] Jan, [facility] [address] [id number] [address] [place] [address], [place] [address] Jan, [facility] [address] [id number] [address] [place] [address], [place] [address] Jan, [facility] [address] [id number] [address] [place] [address], [place] [address] Jan, [facility] [address] [id number] [address] [place] [address], [place] [address] Dec, [facility] [address] [id number] [address] [place] [address], [place] [address] Dec, [facility] [address] [id number] [address] [place] [address], [place] [address] Nov, [facility] [address] [id number] [address] [place] [address], [place] [address] Nov, [facility] [address] [id number] [address] [place] [address], [place] [address] October, [facility] [address] [id number] [address] [place] [address], [place] [address] October, [facility] [address] [id number] [address] [place] [address], [place] [address] October, [facility] [address] [id number] [address] [place] [address], [place] [address] Sep, [facility] [address] [id number] [address] [place] [address], [place] [address] Sep, [facility] [address] [id number] [address] [place] [address], [place] [address] Sep, [facility] [address] [id number] [address] [place] [address], [place] [address] Aug, [facility] [address] [id number] [address] [place] [address], [place] [address] Aug, [facility] [address] [id number] [address] [place] [address], [place] [address] Aug, [facility] [address] [id number] [address] [place] [address], [place] [address] Aug, [facility] [address] [id number] [address] [place] [address], [place] [address] Aug, [facility] [address] [id number] [address] [place] [address], [place] [address] 23 Jul, 2011 [facility] [address] [id number] [address] [place] [address], [place] [address] 16 Jul, 2011 [facility] [address] [id number] [address] [place] [address], [place] [address] 13 Jul, 2011 [facility] [address] [id number] [address] [place] [address], [place] [address] 09 Jul, 2011 [facility] [address] [id number] [address] [place] [address], [place] [address] Jul, [facility] [address] [id number] [address] [place] [address], [place] [address] Jul, [facility] [address] [id number] [address] [place] [address], [place] [address] Jul, [facility] [address] [id number] [address] [place] [address], [place] [address] Jul, [facility] [address] [id number] [address] [place] [address], [place] [address] Jun, [facility] [address] [id number] [address] [place] [address], [place] [address] Jun, [facility] [address] [id number] [address] [place] [address], [place] [address] May, [facility] [address] [id number] [address] [place] [address], [place] [address] May, [facility] [address] [id number] [address] [place] [address], [place] [address] May, [facility] [address] [id number] [address] [place] [address], [place] [address] May, [facility] [address] [id number] [address] [place] [address], [place] [address] Apr, [facility] [address] [id number] [address] [place] [address], [place] [address] Apr, [facility] [address] [id number] [address] [place] [address], [place] [address] Apr, [facility] [address] [id number] [address] [place] [address], [place] [address] Mar, [facility] [address] [id number] [address] [place] [address], [place] [address] Mar, [facility] [address] [id number] [address] [place] [address], [place] [address] 18 Mar, 2011 [facility] [address] [id number] [address] [place] [address], [place] [address] 2011 [facility] [address] [id number] [address] [place] [address], [place] [address] Dec, [facility] [address] [id number] [address] [place] [address], [place] [address] October, [facility] [address] [id number] [address] [place] [address], [place] [address] 28 May, 2010 [facility] [address] [id number] [address] [place] [address], [place] [address] 13 May, 2010 [facility] [address] [id number] [address] [place] [address], [place] [address] 13 May, 2010 [facility] [address] [id number] [address] [place] [address], [place] [address] 06 May, 2010 [facility] [address] [id number] [address] [place] [address], [place] [address] Mar, [facility] [address] [id number] [address] [place] [address] Mar, [facility] [address] [id number] [address] [place] [address], [place] [address] 31 May, 2009 [facility] [address] [id number] [address] [place] [address] 30 May, 2009 [facility] [address] [id number] [address] [place] [address], [place] [address] May, [facility] [address] [id number] [address] [place] [address], [place] [address] 08 May, 2009 [facility] [address] [id number] [address] [place] [address] Apr, [facility] [address] [id number] [address] [place] [address] Apr, [facility] [address] [facility] [id number] [address] [address] October, IMMUNIZATIONS No Known Immunizations SOCIAL HISTORY [...]
--- OUTSIDE RECORDS SUMMARY | 2020-01-13 11:49 | XMS REPORT ---
Author Author Monique RAHMAN [facility] Address [address] [place] [address] Care Team Providers Care Supervisor Rod Placing Name Role Phone RASHEED RAHMAN Unavailable PROBLEMS Type Condition ICD9-CM Code JJI70-EV Code Onset Dates Condition S tatus SNOMED Code Problem History of illicit drug use Z87.898 Ac tive 114748977 Problem Snoring R06.83 Active 48105150 Problem Impaired circulation I99.9 Active 87905177 Problem MRSA (methicillin resistant staph aureus) culture positive Z22.322 Active 910538655 Problem Panic disorder without agoraphobia F41.0 Active 97399966 Problem Dysthymic disorder F34.1 Active 7 8356829 Problem Mood disorder F39 Active 478966 05 Problem Arthritis M19.90 Active 9937890 Problem Mild chronic obstructive pulmonary disease J44.9 Active 219304959 Problem Mild persistent asthma without complication J45.30 Active 397512766 Problem Essential hypertension I10 Active 49838068 Problem On home oxygen therapy Z99.81 Active 927314588828 Problem Social phobia F40.10 Active 678410 02 Problem Neuropathy G62.9 Active 895930760 Problem 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 Active 123626224 Problem Major depressive disorder, recurrent episode, moderate F33.1 Active 159748971 Problem Psychotic disorder F29 Active 6 9870635 Problem Hypertension, benign I10 Active 40336121 Problem Onychomycosis B35.1 Active 449742 008 Problem Body mass index (BMI) 40.0-44.9, adult Z68.41 Active 353151031 Problem Varicose veins of both lower extremities I83.93 Active 16107611 Problem Sciatica, left side M54.32 Active 46294177 Problem Agoraphobia F40.00 Active 58886092 Problem Fatigue R53.83 Active 19230510 Problem Major depressive disorder in full remission F32.5 Active 92304766 Problem Slow transit constipation K59.01 Acti ve 38128741 Problem Chronic obstructive pulmonary disease, unspecified COPD ty pe J44.9 Active 52220462 Problem Unspecified psychosis not du e to a substance or known physiological condition F29 Active 911073263 ALLERGIES No Information ENCOUNTERS Encounter Location Date Diagnosis [place] [address] [address] Nov, [place] [address] [address] Sep, [place] [address] [address] Sep, [place] [address] [address] Aug, Bronchitis J40 [place] [address] [address] Aug, Sciatica, left side M54.32 a nd Morbid obesity E66.01 [place] [address] [address] Aug, [place] [address] [address] [place] [id number] [place] [address] Aug, Sciatica, left side M54.32 [place] [address] [address] Aug, Neuropathy G62.9 ; Onychomyc osis B35.1 ; Callus of foot L84 and Skin fissures R23.4 [place] [address] [address] [place] [id number] [place] [address] Jul, [place] [address] [place] [id number] [place] [address] Jul, Morbid obesity E66.01 [place] [address] [place] [id number] [place] [address] Jul, Unspecified psychosis not du e to a substance or known physiological condition F29 ; Chronic obstructive pulmonary disease, unspecified COPD type J44.9 and Body mass index (BMI) 40.0-44.9, adult Z68.41 [place] [address] [place] [id number] [place] [address] Jun, [place] [address] [place] [id number] [place] [address] Jun, Morbid obesity E66.01 [place] [address] [place] [id number] [place] [address] May, Morbid obesity E66.01 [place] [address] [place] [id number] [place] [address] May, Encounter for immunization Z 23 [place] [address] [place] [id number] [place] [address] May, Major depressive disorder, r ecurrent episode, moderate F33.1 ; Panic disorder without agoraphobia F41.0 and Morbid obesity E66.01 [place] [address] [place] [id number] [place] [address] May, Major depressive disorder in full remission F32.5 and Panic disorder without agoraphobia F41.0 [place] [address] [place] [id number] [place] [address] Apr, Morbid obesity E66.01 [place] [address] [place] [id number] [place] [address] Apr, Slow transit constipation K5 9.01 and Cellulitis of left lower extremity L03.116 [place] [address] [place] [id number] [place] [address] Apr, Morbid obesity E66.01 [place] [address] [place] [id number] [place] [address] Apr, [place] [address] [place] [id number] [place] [address] Apr, Major depressive disorder, r ecurrent episode, moderate F33.1 and Panic disorder without agoraphobia F41.0 [place] [address] [address] Mar, Viral upper respiratory trac t infection J06.9 [place] [address] [place] [id number] [place] [address] Mar, Bronchitis J40 and Encounter for immunization Z23 [place] [address] [address] Mar, Morbid obesity E66.01 [place] [address] [address] Feb, Major depressive disorder, r ecurrent episode, moderate F33.1 and Panic disorder without agoraphobia F41.0 [place] [address] [address] Feb, Morbid obesity E66.01 [place] [address] [address] 06 Feb, 2019 Onychomycosis B35.1 ; 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 and Xerosis of skin L85.3 [place] [address] [address] 04 Feb, 2019 Major depressive disorder, r ecurrent episode, moderate F33.1 ; Panic disorder without agoraphobia F41.0 and Morbid obesity E66.01 [place] [address] [place] [id number] [place] [address] Jan, Major depressive disorder in full remission F32.5 and Panic disorder without agoraphobia F41.0 [place] [address] [address] Jan, Pneumonia of both lower lobe s due to infectious organism J18.1 and Morbid obesity E66.01 [place] [address] [address] Jan, [facility] [address] [place] [id number] [place] [address] Jan, Major depressive disorder in full remission F32.5 and Panic disorder without agoraphobia F41.0 [place] [address] [address] [facility] [id number] [address] [place] [address] Jan, [place] [address] [place] [id number] [place] [address] Jan, Major depressive disorder, r ecurrent episode, moderate F33.1 ; Panic disorder without agoraphobia F41.0 and Morbid obesity E66.01 [place] [address] [place] [id number] [place] [address] Dec, Bilious vomiting with nausea R11.14 ; Coughing R05 and Choking, subsequent encounter T17.308D [place] [address] [address] Dec, Morbid obesity E66.01 [place] [address] [place] [id number] [place] [address] Dec, Major depressive disorder, r ecurrent episode, moderate F33.1 and Panic disorder without agoraphobia F41.0 [place] [address] [place] [id number] [place] [address] Dec, [place] [address] [place] [id number] [place] [address] Dec, Major depressive disorder, r ecurrent episode, moderate F33.1 [place] [address] [address] [facility] [id number] [address] [place] [address] Nov, Major depressive disorder, r ecurrent episode, moderate F33.1 ; Panic disorder without agoraphobia F41.0 and Morbid obesity E66.01 [facility] [address] [place] [id number] [place] [address] Nov, Morbid obesity E66.01 [place] [address] [address] Nov, Major depressive disorder, r ecurrent episode, moderate F33.1 and Panic disorder without agoraphobia F41.0 [facility] [place] [address] [address] Nov, Allergic reaction, initial e ncounter T78.40XA and Morbid obesity E66.01 [place] [address] [address] Nov, [place] [address] [address] Nov, Morbid obesity E66.01 ; Swal lowing problem R13.10 and Hypertension, benign I10 [facility]ALK IN [place] [address] [address] Nov, Morbid obesity E66.01 ; COPD exacerbation J44.1 and Non- recurrent acute suppurative otitis media of left ear without spontaneous rupture of tympanic membrane H66.002 [place] [address] [address] Nov, Onychomycosis B35.1 ; Neurop athy G62.9 and Fissure in skin of foot R23.4 [place] [address] [address] October, Major depressive disorder, r ecurrent episode, moderate F33.1 ; Panic disorder without agoraphobia F41.0 and Morbid obesity E66.01 [facility] WALK IN [facility] [address] [address] October, Viral upper respiratory trac t infection J06.9 [place] [address] [address] October, [place] [address] [address] October, Major depressive disorder, r ecurrent episode, moderate F33.1 and Panic disorder without agoraphobia F41.0 [facility] [address] [facility] [id number] [address] [place] [address] October, [facility] [address] [facility] [id number] [address] [place] [address] October, [facility] [address] [facility] [id number] [address] [place] [address] October, [facility] [address] [facility] [id number] [address] [place] [address] October, [facility] [address] [facility] [id number] [address] [place] [address] October, [facility] [address] [facility] [id number] [address] [place] [address] October, [facility] [address] [facility] [id number] [address] [place] [address] October, Major depressive disorder, r ecurrent episode, moderate F33.1 and Panic disorder without agoraphobia F41.0 [facility] [address] [facility] [id number] [address] [place] [address] Sep, Morbid obesity E66.01 and Vane mbar neuritis M54.16 [facility] [address] [facility] [id number] [address] [place] [address] Sep, Panic disorder without agora phobia F41.0 and Major depressive disorder, recurrent episode, moderate F33.1 [facility] [address] [facility] [id number] [address] [place] [address] Sep, Gastroenteritis K52.9 ; Low back pain M54.5 ; Other chronic pain G89.29 and Morbid obesity E66.01 [facility] [address] [facility] [id number] [address] [place] [address] Sep, Major depressive disorder, r ecurrent episode, moderate F33.1 ; Panic disorder without agoraphobia F41.0 and Social phobia F40.10 [place] [address] [address] Sep, Panic disorder without agora phobia F41.0 [place] [address] [address] Sep, Panic disorder without agora phobia F41.0 [place] [address] [address] Aug, Panic disorder without agora phobia F41.0 ; Major depressive disorder, recurrent episode, moderate F33.1 ; Social phobia F40.10 ; Psychotic disorder F29 ; Tardive dyskinesia G24.01 and Morbid obesity E66.01 [place] [address] [address] Aug, Dysthymic disorder F34.1 and Psychotic disorder F29 [place] [address] [address] Aug, Encounter for Medicare annua l wellness exam Z00.00 ; Morbid obesity E66.01 and 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 [place] [address] [address] Aug, Dysthymic disorder F34.1 and Psychotic disorder F29 [place] [address] [address] Aug, Neuropathy G62.9 ; Onychomyc osis B35.1 and Xerosis of skin L85.3 [place] [address] [address] Jul, [place] [address] [address] Jul, Mood disorder F39 ; Wheezing R06.2 ; Choking, initial encounter T17.308A and Coughing R05 [place] [address] [address] Jul, Low back pain M54.5 [facility] [address] [facility] [id number] [address] [place] [address] Jun, Flu-like symptoms R68.89 ; B NH 45.0-49.9, adult Z68.42 ; COPD exacerbation J44.1 and Acute bronchitis J20.9 [facility] [address] [place] [id number] [place] [address] Jun, 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 [place] [address] [address] May, Low back pain M54.5 and Abdoulaye a leg R60.0 [place] [address] [address] [place] [id number] [place] [address] 11 May, 2018 BMI 45.0-49.9, adult Z68.42 ; Well woman exam with routine gynecological exam Z01.419 and Breast cancer screening Z12.31 [place] [address] [place] [id number] [place] [address] Apr, Arthritis M19.90 [place] [address] [place] [id number] [place] [address] 16 Apr, 2018 Arthritis M19.90 and Otalgia of both ears H92.03 [place] [address] [place] [id number] [place] [address] Feb, [place] [address] [address] Feb, Low back pain M54.5 ; Other chronic pain G89.29 ; Exertional asthma J45.990 and Encounter for immunization Z23 [place] [address] [address] Feb, Skin fissures R23.4 ; Neurop athy G62.9 and Onychomycosis B35.1 [place] [address] [address] 05 Feb, 2018 Dysthymic disorder F34.1 [place] [address] [address] Feb, [place] [address] [address] Jan, [place] [address] [address] Jan, Abrasion of right elbow, ini tial encounter S50.311A ; Abrasion, right knee, initial encounter S80.211A and Sprain of other ligament of right ankle, initial encounter S93.491A [place] [address] [address] Jan, [facility] [address] [address] Jan, Injury of left ankle, initia l encounter S99.912A ; Fall down stairs, initial encounter W10.8XXA and BMI 45.0-49.9, adult Z68.42 [place] [address] [address] Jan, COPD exacerbation J44.1 [place] [address] [address] 13 Jan, 2018 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 [place] [address] [address] 08 Jan, 2018 Bronchitis J40 and Acute sup purative otitis media of left ear without spontaneous rupture of tympanic membrane, recurrence not specified H66.002 [place] [address] [address] Jan, [place] [id number] [place] [id number] [place] [address] Jan, Bronchitis J40 and BMI 40.0- 44.9, adult Z68.41 [place] [address] [place] [id number] [place] [address] Jan, [place] [address] [place] [id number] [place] [address] Dec, Gastric pain R10.9 [place] [address] [place] [id number] [place] [address] Dec, [place] [address] [place] [id number] [place] [address] Dec, History of illicit drug use Z87.898 ; Neuropathy G62.9 ; COPD (chronic obstructive pulmonary disease) with chronic bronchitis J44.9 and Acute pain of right knee M25.561 [place] [address] [place] [address] Nov, [place] [address] [address] Nov, Onychomycosis B35.1 and Cont usion of left foot, subsequent encounter S90.32XD [place] [address] [place] [id number] [place] [address] Nov, COPD exacerbation J44.1 [place] [address] [place] [id number] [place] [address] Sep, [place] [address] [place] [id number] [place] [address] Sep, Dysthymic disorder F34.1 ; T obacco abuse Z72.0 ; Pain in right knee M25.561 ; Pain in left knee M25.562 ; Other chronic pain G89.29 and BMI 40.0- 44.9, adult Z68.41 [place] [address] [address] Aug, Major depressive disorder, r ecurrent episode, moderate F33.1 and Social phobia F40.10 [place] [address] [address] 14 Aug, 2017 Dysthymic disorder F34.1 ; N on-pressure chronic ulcer of left thigh, unspecified ulcer stage L97.129 ; Tobacco abuse Z72.0 ; Mild chronic obstructive pulmonary disease J44.9 and Forgetfulness R68.89 [place] [address] [address] 09 Aug, 2017 Onychomycosis B35.1 ; Fissur e in skin of foot R23.4 and Foot callus L84 [facility] [address] [address] Jul, Right medial knee pain M25.5 61 ; Upper respiratory tract infection, unspecified type J06.9 and BMI 40.0-44.9, adult Z68.41 [facility]ALK IN [place] [address] [address] 08 Jul, 2017 Nausea and vomiting, intract ability of vomiting not specified, unspecified vomiting type R11.2 ; Left ear pain H92.02 and Gastric pain R10.9 [place] [address] [address] Apr, Encounter for immunization Z 23 [place] [address] [address] Apr, Onychomycosis B35.1 ; Xerosi s of skin L85.3 ; Neuropathy G62.9 and 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 [address] [id number] [address] [place] [address] Dec, [facility] [address] [id number] [address] [place] [address] Nov, [facility] [address] [facility] [id number] [address] [place] [address] Aug, [facility] [address] [id number] [address] [place] [address] Aug, [facility] [address] [id number] [address] [place] [address] Jul, [facility] [address] [facility] [id number] [address] [place] [address] Jul, [facility] [address] [facility] [id number] [address] [place] [address] Jul, Decubitus ulcer of left thig h, stage [address] [facility] [address] [facility] [id number] [address] [place] [address] 17 Jul, 2016 Decubitus ulcer of left thig h, stage [address] [facility] [address] [facility] [id number] [address] [place] [address] 17 Jul, 2016 [facility] [address] [facility] [id number] [address] [place] [address] 15 Jul, 2016 Decubitus ulcer of left thig h, stage [address] [facility] [address] [facility] [id number] [address] [place] [address] 14 Jul, 2016 [facility] [address] [facility] [id number] [address] [place] [address] 13 Jul, 2016 Cellulitis of other specifie d site L03.818 ; Illicit drug use F19.90 and Decubitus ulcer of left thigh, stage [address] [facility] [address] [facility] [id number] [address] [place] [address] 08 Jul, 2016 [facility] [address] [place] [id number] [address] [place] [address] Jul, Cellulitis of right breast N 61.0 [facility] [address] [facility] [id number] [address] [place] [address] Jun, [facility] [address] [address] Jun, [place] [address] [place] [id number] [place] [address] Jun, Wheezing R06.2 and Arthralgi a, unspecified joint M25.50 [place] [address] [place] [id number] [place] [address] May, [place] [address] [address] May, [facility] [address] [place] [id number] [place] [address] May, [place] [address] [address] 05 May, 2016 Shortness of breath R06.02 [place] [address] [place] [id number] [place] [address] May, Onychomycosis B35.1 and Fiss ure in skin of foot R23.4 [facility] [address] [id number] [address] [place] [phone] Apr, [facility] [address] [id number] 18 Apr, 2016 Dizziness R42 [place] [address] [place] [id number] [place] [id number] 14 Apr, 2016 Shortness of breath R06.02 ; Essential hypertension I10 ; Dizziness R42 and On home oxygen therapy Z99.81 [facility] [address] [id number] [address] [place] [phone] Apr, [facility] [address] [id number] [address] [place] [id number] Apr, [facility] [address] [id number] [address] [place] [phone] Apr, [facility] [address] [id number] [address] [place] [id number] Apr, [facility] [address] [id number] [address] [place] [id number] Apr, [facility] [address] [id number] [address] [place] [id number] Apr, [facility] [address] [id number] [address] [place] [phone] Apr, [facility] [address] [id number] [address] [place] [id number] Mar, Mild chronic obstructive pul monary disease J44.9 [facility] [address] [id number] [address] [place] [id number] Mar, [facility] [address] [id number] [address] [place] [id number] Mar, Epigastric pain R10.13 ; Low back pain M54.5 ; Other chronic pain G89.29 and Breast cancer screening Z12.39 [facility] [address] [id number] [address] [place] [phone] Mar, [facility] [address] [id number] [address] [place] [id number] Mar, [facility] [address] [id number] [address] [place] [id number] Feb, [facility] [address] [id number] [address] [place] [id number] Feb, [facility] [address] [id number] [address] [place] [id number] Feb, Fissure in skin of foot R23. 4 and Onychomycosis B35.1 [place] [address] [address] [place] [id number] [address] [place] [id number] Jan, Agoraphobia F40.00 [place] [address] [address] [facility] [id number] [address] [place] [id number] Dec, Agoraphobia F40.00 [place] [address] [address] [facility] [id number] [address] [place] [address] Dec, Mild persistent asthma witho ut complication J45.30 ; Dysthymic disorder F34.1 and Upper respiratory tract infection, unspecified type J06.9 [place] [address] [address] [facility] [id number] [address] [place] [id number] Nov, Agoraphobia F40.00 [place] [address] [address] [place] [id number] [address] [place] [address] October, Agoraphobia F40.00 [place] [address] [address] [place] [id number] [address] [place] [id number] Sep, Panic disorder without agora phobia F41.0 ; Agoraphobia F40.00 and Dysthymic disorder F34.1 [place] [address] [address] [place] [id number] [address] [place] [id number] Sep, Panic attacks F41.0 [place] [address] [address] [facility] [id number] [address] [place] [id number] Sep, [place] [address] [address] [facility] [id number] [address] [place] [id number] Sep, Panic disorder without agora phobia F41.0 ; Varicose veins of both lower extremities I83.93 and Fatigue R53.83 [place] [address] [address] [facility] [id number] [address] [place] [id number] 14 Sep, 2015 Fatigue R53.83 [place] [address] [address] [place] [id number] [address] [place] [id number] Sep, [facility] [address] [place] [id number] [address] [place] [id number] Aug, [facility] [address] [place] [id number] [address] [place] [address] Aug, [facility] [address] [address] Aug, Type 2 diabetes mellitus wit h diabetic neuropathic arthropathy E11.610 [place] 817541 [place] [id number] [address] [place] [address] Aug, Panic disorder without agora phobia F41.0 ; Agoraphobia F40.00 and Dysthymic disorder F34.1 [place] [address] [address] Aug, Shortness of breath R06.02 ; Panic attacks F41.0 ; COPD (chronic obstructive pulmonary disease) J44.9 ; Tobacco abuse Z72.0 ; Family history of diabetes mellitus Z83.3 and Weight gain R63.5 [place] [address] [address] Aug, [place] [address] [place] [id number] [address] [place] [id number] Jul, [place] [address] [address] Jun, Onychomycosis B35.1 ; Neurop athy G62.9 and Impaired circulation I99.9 [place] [address] [address] [place] [id number] [address] [place] [id number] 09 Mar, 2015 Fissure in skin of foot R23. 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 [address] [id number] [address] [place] [id number] 15 Feb, 2015 Allergic rhinitis due to darien agnieszka 477.0 ; Unspecified breast screening V76.10 ; Anxiety 300.00 and Family history of coronary arteriosclerosis V17.3 [facility] [address] [id number] [address] [place] [id number] Jan, [facility] [address] [id number] [address] [place] [id number] Dec, [facility] [address] [id number] [address] [place] [id number] Dec, Onychomycosis 110.1 and Skin fissures 709.8 [facility] [address] [id number] [address] [place] [id number] Sep, [facility] [address] [id number] [address] [place] [id number] Sep, [facility] [address] [id number] [address] [place] [id number] Aug, [facility] [address] [id number] [address] [place] [id number] Aug, [facility] [address] [id number] [address] [place] [id number] Jul, [facility] [address] [id number] [address] [place] [id number] Jul, [facility] [address] [id number] [address] [place] [id number] Jun, [facility] [address] [id number] [address] [place] [id number] Jun, [facility] [address] [id number] [address] [place] [id number] Jun, [facility] [address] [facility] [id number] [address] [place] [id number] Jun, [facility] [address] [id number] [address] [place] [address], [place] [address] Jun, [facility] [address] [id number] [address] [place] [address], [place] [address] May, [facility] [address] [id number] [address] [place] [address], [place] [address] May, [facility] [address] [id number] [address] [place] [address], [place] [address] May, [facility] [address] [id number] [address] [place] [address], [place] [address] May, [facility] [address] [id number] [address] [place] [address], [place] [address] May, [facility] [address] [id number] [address] [place] [address], [place] [address] May, [facility] [address] [id number] [address] [place] [address], [place] [address] May, [facility] [address] [id number] [address] [place] [address], [place] [address] May, [facility] [address] [id number] [address] [place] [address], [place] [address] Apr, [facility] [address] [id number] [address] [place] [address], [place] [address] Apr, [facility] [address] [id number] [address] [place] [address], [place] [address] Apr, [facility] [address] [id number] [address] [place] [address], [place] [address] Apr, [facility] [address] [id number] [address] [place] [address], [place] [address] Apr, [facility] [address] [id number] [address] [place] [address], [place] [address] Apr, [facility] [address] [id number] [address] [place] [id number] 07 Apr, 2014 [facility] [address] [id number] [address] [place] [address], [place] [address] Apr, [facility] [address] [id number] [address] [place] [id number] Apr, [facility] [address] [id number] [address] [place] [address], [place] [address] Apr, [facility] [address] [id number] [address] [place] [address], [place] [address] Mar, [facility] [address] [id number] [address] [place] [address], [place] [address] Mar, [facility] [address] [id number] [address] [place] [address], [place] [address] Mar, [facility] [address] [id number] [address] [place] [id number] Mar, [facility] [address] [id number] [address] [place] [address], [place] [address] Mar, [facility] [address] [id number] [address] [place] [address], [place] [address] Mar, [facility] [address] [id number] [address] [place] [id number] Mar, [facility] [address] [id number] [address] [place] [address], [place] [address] Mar, [facility] [address] [id number] [address] [place] [id number] Mar, [facility] [address] [id number] [address] [place] [address], [place] [address] Mar, [facility] [address] [id number] [address] [place] [address], [place] [address] Mar, [facility] [address] [id number] [address] [place] [address], [place] [address] Mar, [facility] [address] [id number] [address] [place] [address], [place] [address] 22 Mar, 2013 [facility] [address] [id number] [address] [place] [address], [place] [address] 22 Mar, 2013 [facility] [address] [id number] [address] [place] [address], [place] [address] 22 Mar, 2013 [facility] [address] [id number] [address] [place] [address], [place] [address] 20 Mar, 2013 [facility] [address] [id number] [address] [place] [address], [place] [address] 20 Mar, 2013 [facility] [address] [id number] [address] [place] [address], [place] [address] 16 Mar, 2013 [facility] [address] [id number] [address] [place] [address], [place] [address] 16 Mar, 2014 [facility] [address] [id number] [address] [place] [address], [place] [address] 15 Mar, 2013 [facility] [address] [id number] [address] [place] [address], [place] [address] 14 Mar, 2014 [facility] [address] [id number] [address] [place] [address], [place] [address] 14 Mar, 2013 [facility] [address] [id number] [address] [place] [address], [place] [address] 14 Mar, 2014 [facility] [address] [id number] [address] [place] [address], [place] [address] 14 Mar, 2013 [facility] [address] [id number] [address] [place] [address], [place] [address] 09 Mar, 2014 [facility] [address] [id number] [address] [place] [address], [place] [address] 09 Mar, 2013 [facility] [address] [id number] [address] [place] [address], [place] [address] 09 Mar, 2014 [facility] [address] [id number] [address] [place] [address] [address] Mar, [facility] [address] [id number] [address] [place] [address], [place] [address] 30 Feb, 2013 [facility] [address] [id number] [address] [place] [address], [place] [address] 30 Feb, 2013 [facility] [address] [id number] [address] [place] [address], [place] [address] 30 Feb, 2013 [facility] [address] [id number] [address] [place] [address], [place] [address] 30 Feb, 2013 [facility] [address] [id number] [address] [place] [address], [place] [address] Feb, 2013 [facility] [address] [id number] [address] [place] [address], [place] [address] Feb, 2013 [facility] [address] [id number] [address] [place] [address], [place] [address] Feb, 2013 [facility] [address] [id number] [address] [place] [address], [place] [address] Feb, 2013 [facility] [address] [id number] [address] [place] [address], [place] [address] Feb, 2013 [facility] [address] [id number] [address] [place] [address], [place] [address] Feb, 2013 [facility] [address] [id number] [address] [place] [address], [place] [address] Feb, 2013 [facility] [address] [id number] [address] [place] [address], [place] [address] Feb, 2013 [facility] [address] [id number] [address] [place] [address], [place] [address] Jan, [facility] [address] [id number] [address] [place] [address], [place] [address] Jan, [facility] [address] [id number] [address] [place] [address], [place] [address] Jan, [facility] [address] [id number] [facility] [place] [address] Jan, [facility] [address] [id number] [address] [place] [address], [place] [address] Jan, [facility] [address] [id number] [address] [place] [address], [place] [address] Jan, [facility] [address] [id number] [address] [place] [address], [place] [address] Jan, [facility] [address] [id number] [address] [place] [address], [place] [address] Jan, [facility] [address] [id number] [address] [place] [address], [place] [address] Jan, [facility] [address] [id number] [address] [place] [address], [place] [address] Jan, [facility] [address] [id number] [address] [place] [address], [place] [address] Jan, [facility] [address] [id number] [address] [place] [address], [place] [address] Jan, [facility] [address] [id number] [address] [place] [address], [place] [address] Jan, [facility] [address] [id number] [address] [place] [address], [place] [address] Dec, [facility] [address] [id number] [address] [place] [address], [place] [address] Dec, [facility] [address] [id number] [address] [place] [address], [place] [address] Dec, [facility] [address] [id number] [address] [place] [address], [place] [address] Dec, [facility] [address] [id number] [address] [place] [address], [place] [address] Dec, [facility] [address] [id number] [address] [place] [address], [place] [address] Dec, [facility] [address] [id number] [facility] [place] [address] Dec, [facility] [address] [id number] [address] [place] [address], [place] [address] Dec, [facility] [address] [id number] [address] [place] [address], [place] [address] Dec, [facility] [address] [id number] [address] [place] [address], [place] [address] Dec, [facility] [address] [id number] [address] [place] [address], [place] [address] Dec, [facility] [address] [id number] [address] [place] [address], [place] [address] Dec, [facility] [address] [id number] [address] [place] [address], [place] [address] Dec, [facility] [address] [id number] [address] [place] [address], [place] [address] Dec, [facility] [address] [id number] [address] [place] [address], [place] [address] Dec, [facility] [address] [id number] [address] [place] [address], [place] [address] Dec, [facility] [address] [id number] [address] [place] [address], [place] [address] Dec, [facility] [address] [id number] [address] [place] [address], [place] [address] Dec, [facility] [address] [id number] [address] [place] [address], [place] [address] Nov, [facility] [address] [id number] [address] [place] [address], [place] [address] Nov, [facility] [address] [id number] [address] [place] [address], [place] [address] Nov, [facility] [address] [id number] [address] [place] [address], [place] [address] Nov, [facility] [address] [id number] [facility] [place] [address] Nov, [facility] [address] [id number] [address] [place] [address], [place] [address] Nov, [facility] [address] [id number] [address] [place] [address], [place] [address] Nov, [facility] [address] [id number] [address] [place] [address], [place] [address] Nov, [facility] [address] [id number] [address] [place] [address], [place] [address] Nov, [facility] [address] [id number] [address] [place] [address], [place] [address] Nov, [facility] [address] [id number] [address] [place] [address], [place] [address] Nov, [facility] [address] [id number] [address] [place] [address], [place] [address] Nov, [facility] [address] [id number] [address] [place] [address], [place] [address] Nov, [facility] [address] [id number] [address] [place] [address], [place] [address] Nov, [facility] [address] [id number] [address] [place] [address], [place] [address] Nov, [facility] [address] [id number] [address] [place] [address], [place] [address] Nov, [facility] [address] [id number] [address] [place] [address], [place] [address] Nov, [facility] [address] [id number] [address] [place] [address], [place] [address] Nov, [facility] [address] [id number] [address] [place] [address], [place] [address] Nov, [facility] [address] [id number] [address] [place] [address], [place] [address] Nov, [facility] [address] [id number] [address] [place] [address], [place] [address] October, [facility] [address] [id number] [address] [place] [address], [place] [address] October, [facility] [address] [id number] [address] [place] [address], [place] [address] October, [facility] [address] [id number] [address] [place] [address], [place] [address] October, [facility] [address] [id number] [address] [place] [address], [place] [address] Sep, [facility] [address] [id number] [address] [place] [address], [place] [address] Sep, [facility] [address] [id number] [address] [place] [address], [place] [address] Sep, [facility] [address] [id number] [address] [place] [address], [place] [address] Sep, [facility] [address] [id number] [address] [place] [address], [place] [address] Sep, [facility] [address] [id number] [address] [place] [address], [place] [address] Sep, [facility] [address] [id number] [address] [place] [address], [place] [address] Sep, [facility] [address] [id number] [address] [place] [address], [place] [address] Sep, [facility] [address] [id number] [address] [place] [address], [place] [address] Sep, [facility] [address] [id number] [address] [place] [address], [place] [address] Aug, [facility] [address] [id number] [address] [place] [address], [place] [address] Aug, [facility] [address] [id number] [facility] [place] [address] Aug, [facility] [address] [id number] [address] [place] [address], [place] [address] Aug, [facility] [address] [id number] [address] [place] [address], [place] [address] Aug, [facility] [address] [id number] [address] [place] [address], [place] [address] Aug, [facility] [address] [id number] [address] [place] [address], [place] [address] Aug, [facility] [address] [id number] [address] [place] [address], [place] [address] Aug, [facility] [address] [id number] [address] [place] [address], [place] [address] Jul, [facility] [address] [id number] [address] [place] [address], [place] [address] Jul, [facility] [address] [id number] [address] [place] [address], [place] [address] Jun, [facility] [address] [id number] [address] [place] [address], [place] [address] Jun, [facility] [address] [id number] [address] [place] [address], [place] [address] Jun, [facility] [address] [id number] [address] [place] [address], [place] [address] Jun, [facility] [address] [id number] [address] [place] [address], [place] [address] Jun, [facility] [address] [id number] [address] [place] [address], [place] [address] Jun, [facility] [address] [id number] [address] [place] [address], [place] [address] Jun, [facility] [address] [id number] [address] [place] [address], [place] [address] 15 Jun, 2013 [facility] [address] [id number] [address] [place] [address], [place] [address] 15 Jun, 2013 [facility] [address] [id number] [address] [place] [address], [place] [address] 14 Jun, 2013 [facility] [address] [id number] [address] [place] [address], [place] [address] 02 Jun, 2013 [facility] [address] [id number] [address] [place] [address], [place] [address] 02 Jun, 2013 [facility] [address] [id number] [address] [place] [address], [place] [address] 31 May, 2013 [facility] [address] [id number] [address] [place] [address], [place] [address] 31 May, 2013 [facility] [address] [id number] [address] [place] [address], [place] [address] 31 May, 2013 [facility] [address] [id number] [address] [place] [address], [place] [address] 31 May, 2013 [facility] [address] [id number] [address] [place] [address], [place] [address] 31 May, 2013 [facility] [address] [id number] [address] [place] [address], [place] [address] 31 May, 2013 [facility] [address] [id number] [address] [place] [address], [place] [address] 26 May, 2013 [facility] [address] [id number] [address] [place] [address], [place] [address] 23 May, 2013 [facility] [address] [id number] [address] [place] [address], [place] [address] 23 May, 2013 [facility] [address] [id number] [address] [place] [address], [place] [address] 16 May, 2013 [facility] [address] [id number] [address] [place] [address], [place] [address] 16 May, 2013 [facility] [address] [id number] [address] [place] [address], [place] [address] May, [facility] [address] [id number] [address] [place] [address], [place] [address] May, [facility] [address] [id number] [address] [place] [address], [place] [address] Apr, [facility] [address] [id number] [address] [place] [address], [place] [address] Apr, [facility] [address] [id number] [address] [place] [address] [address] Mar, [facility] [address] [id number] [address] [place] [address], [place] [address] Mar, [facility] [address] [id number] [address] [place] [address], [place] [address] Feb, [facility] [address] [id number] [address] [place] [address], [place] [address] Feb, [facility] [address] [id number] [address] [place] [address], [place] [address] Feb, [facility] [address] [id number] [address] [place] [address], [place] [address] Feb, [facility] [address] [id number] [address] [place] [address], [place] [address] Jan, [facility] [address] [id number] [address] [place] [address], [place] [address] Jan, [facility] [address] [id number] [address] [place] [address], [place] [address] Jan, [facility] [address] [id number] [address] [place] [address], [place] [address] Jan, [facility] [address] [id number] [address] [place] [address], [place] [address] Jan, [facility] [address] [id number] [address] [place] [address], [place] [address] Jan, [facility] [address] [id number] [address] [place] [address], [place] [address] Dec, [facility] [address] [id number] [address] [place] [address], [place] [address] Dec, [facility] [address] [id number] [address] [place] [address], [place] [address] Dec, [facility] [address] [id number] [address] [place] [address], [place] [address] Dec, [facility] [address] [id number] [address] [place] [address], [place] [address] Nov, [facility] [address] [id number] [address] [place] [address], [place] [address] October, [facility] [address] [id number] [address] [place] [address], [place] [address] October, [facility] [address] [id number] [address] [place] [address], [place] [address] October, [facility] [address] [id number] [address] [place] [address], [place] [address] Sep, [facility] [address] [id number] [address] [place] [address], [place] [address] Sep, [facility] [address] [id number] [address] [place] [address], [place] [address] Jun, [facility] [address] [id number] [address] [place] [address], [place] [address] Jun, [facility] [address] [id number] [address] [place] [address], [place] [address] Jun, [facility] [address] [id number] [address] [place] [address], [place] [address] Apr, [facility] [address] [id number] [address] [place] [address], [place] [address] Apr, [facility] [address] [id number] [address] [place] [address], [place] [address] Apr, [facility] [address] [id number] [address] [place] [address], [place] [address] Apr, [facility] [address] [id number] [address] [place] [address], [place] [address] Mar, [facility] [address] [id number] [address] [place] [address], [place] [address] Mar, [facility] [address] [id number] [address] [place] [address], [place] [address] Mar, [facility] [address] [id number] [address] [place] [address], [place] [address] Mar, [facility] [address] [id number] [address] [place] [address], [place] [address] Feb, [facility] [address] [id number] [address] [place] [address], [place] [address] Feb, [facility] [address] [id number] [address] [place] [address], [place] [address] Feb, [facility] [address] [id number] [address] [place] [address], [place] [address] Jan, [facility] [address] [id number] [address] [place] [address], [place] [address] Jan, [facility] [address] [id number] [address] [place] [address], [place] [address] Jan, [facility] [address] [id number] [address] [place] [address], [place] [address] Jan, [facility] [address] [id number] [address] [place] [address], [place] [address] Dec, [facility] [address] [id number] [address] [place] [address], [place] [address] Dec, [facility] [address] [id number] [address] [place] [address], [place] [address] Nov, [facility] [address] [id number] [address] [place] [address], [place] [address] Nov, [facility] [address] [id number] [address] [place] [address], [place] [address] October, [facility] [address] [id number] [address] [place] [address], [place] [address] October, [facility] [address] [id number] [address] [place] [address], [place] [address] October, [facility] [address] [id number] [address] [place] [address], [place] [address] Sep, [facility] [address] [id number] [address] [place] [address], [place] [address] Sep, [facility] [address] [id number] [address] [place] [address], [place] [address] Sep, [facility] [address] [id number] [address] [place] [address], [place] [address] Aug, [facility] [address] [id number] [address] [place] [address], [place] [address] Aug, [facility] [address] [id number] [address] [place] [address], [place] [address] Aug, [facility] [address] [id number] [address] [place] [address], [place] [address] Aug, [facility] [address] [id number] [address] [place] [address], [place] [address] 07 Aug, 2011 [facility] [address] [id number] [address] [place] [address], [place] [address] 23 Jul, 2011 [facility] [address] [id number] [address] [place] [address], [place] [address] 16 Jul, 2011 [facility] [address] [id number] [address] [place] [address], [place] [address] 13 Jul, 2011 [facility] [address] [id number] [address] [place] [address] [place] [address] 09 Jul, 2011 [facility] [address] [id number] [address] [place] [address], [place] [address] Jul, [facility] [address] [id number] [address] [place] [address], [place] [address] 06 Jul, 2011 [facility] [address] [id number] [address] [place] [address], [place] [address] Jul, [facility] [address] [id number] [address] [place] [address], [place] [address] Jul, [facility] [address] [id number] [address] [place] [address], [place] [address] Jun, [facility] [address] [id number] [address] [place] [address], [place] [address] Jun, [facility] [address] [id number] [address] [place] [address], [place] [address] May, [facility] [address] [id number] [address] [place] [address], [place] [address] May, [facility] [address] [id number] [address] [place] [address], [place] [address] May, [facility] [address] [id number] [address] [place] [address], [place] [address] May, [facility] [address] [id number] [address] [place] [address], [place] [address] Apr, [facility] [address] [id number] [address] [place] [address], [place] [address] Apr, [facility] [address] [id number] [address] [place] [address], [place] [address] Apr, [facility] [address] [id number] [address] [place] [address], [place] [address] Mar, [facility] [address] [id number] [address] [place] [address], [place] [address] Mar, [facility] [address] [id number] [address] [place] [address], [place] [address] 18 Mar, 2011 [facility] [address] [id number] [address] [place] [address], [place] [address] 2011 [facility] [address] [id number] [address] [place] [address], [place] [address] Dec, [facility] [address] [id number] [address] [place] [address], [place] [address] October, [facility] [address] [id number] [address] [place] [address], [place] [address] May, [facility] [address] [id number] [address] [place] [address], [place] [address] 13 May, 2010 [facility] [address] [id number] [address] [place] [address], [place] [address] 13 May, 2010 [facility] [address] [id number] [address] [place] [address], [place] [address] 06 May, 2010 [facility] [address] [id number] [address] [place] [address], [place] [address] Mar, [facility] [address] [id number] [address] [place] [address], [place] [address] Mar, [facility] [address] [id number] [address] [place] [address], [place] [address] 31 May, 2009 [facility] [address] [id number] [address] [place] [address] 30 May, 2009 [facility] [address] [id number] [address] [place] [address], [place] [address] 08 May, 2009 [facility] [address] [id number] [address] [place] [address], [place] [address] 08 May, 2009 [facility] [address] [id number] [address] [place] [address], [place] [address] Apr, [facility] [address] [id number] [address] [place] [address] Apr, [facility] [address] [facility] [id number] [place] [address] October, IMMUNIZATIONS No Known Immunizations SOCIAL HISTORY Never Assessed REASON FOR VISIT PLAN OF CARE VITAL SIGNS Height 64 in 2013-07-10 Weight 200 lbs 2013-07-10 Temperature 97 degrees Fahrenheit 2013-07-10 Heart Rate 80 bpm 2013-07-10 Respiratory Rate 18 2013-07-10 Blood pressure systolic 96 mmHg 2013-07-10 Blood pressure diastolic 70 mmHg 2013-07-10 MEDICATIONS Unknown Medications RESULTS No Results PROCEDURES [...]
--- OUTSIDE RECORDS SUMMARY | 2020-01-13 11:49 | XMS REPORT ---
Author Author Monique RAHMAN [facility] Address [address] [place] [address] Care Team Providers Care Allergy Nurse Name Role Phone RASHEED RAHMAN Unavailable PROBLEMS Type Condition ICD9-CM Code GUX05-UG Code Onset Dates Condition S tatus SNOMED Code Problem History of illicit drug use Z87.898 Ac tive 715163596 Problem Snoring R06.83 Active 03403689 Problem Impaired circulation I99.9 Active 84352934 Problem MRSA (methicillin resistant staph aureus) culture positive Z22.322 Active 118522610 Problem Panic disorder without agoraphobia F41.0 Active 32342907 Problem Dysthymic disorder F34.1 Active 7 1206557 Problem Mood disorder F39 Active 984238 05 Problem Arthritis M19.90 Active 5487250 Problem Mild chronic obstructive pulmonary disease J44.9 Active 649624066 Problem Mild persistent asthma without complication J45.30 Active 506239140 Problem Essential hypertension I10 Active 15933425 Problem On home oxygen therapy Z99.81 Active 255120070225 Problem Social phobia F40.10 Active 420901 02 Problem Neuropathy G62.9 Active 151167358 Problem 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 Active 074809618 Problem Major depressive disorder, recurrent episode, moderate F33.1 Active 931540950 Problem Psychotic disorder F29 Active 6 5682758 Problem Hypertension, benign I10 Active 50920097 Problem Onychomycosis B35.1 Active 828525 008 Problem Body mass index (BMI) 40.0-44.9, adult Z68.41 Active 769087497 Problem Varicose veins of both lower extremities I83.93 Active 70706336 Problem Sciatica, left side M54.32 Active 85874884 Problem Agoraphobia F40.00 Active 49926826 Problem Fatigue R53.83 Active 31836832 Problem Major depressive disorder in full remission F32.5 Active 61783981 Problem Slow transit constipation K59.01 Acti ve 87625123 Problem Chronic obstructive pulmonary disease, unspecified COPD ty pe J44.9 Active 55207495 Problem Unspecified psychosis not du e to a substance or known physiological condition F29 Active 252011149 ALLERGIES No Information ENCOUNTERS Encounter Location Date Diagnosis [place] [address] [address] Nov, [place] [address] [address] Sep, [place] [address] [address] Sep, [place] [address] [address] Aug, Bronchitis J40 [place] [address] [address] Aug, Sciatica, left side M54.32 a nd Morbid obesity E66.01 [place] [address] [address] Aug, [place] [address] [address] [place] [id number] [place] [address] Aug, Sciatica, left side M54.32 [place] [address] [address] Aug, Neuropathy G62.9 ; Onychomyc osis B35.1 ; Callus of foot L84 and Skin fissures R23.4 [place] [address] [place] [id number] [place] [address] Jul, [place] [address] [place] [id number] [place] [address] Jul, Morbid obesity E66.01 [place] [address] [place] [id number] [place] [address] Jul, Unspecified psychosis not du e to a substance or known physiological condition F29 ; Chronic obstructive pulmonary disease, unspecified COPD type J44.9 and Body mass index (BMI) 40.0-44.9, adult Z68.41 [place] [address] [place] [id number] [place] [id number] Jun, [place] [address] [place] [id number] [place] [address] Jun, Morbid obesity E66.01 [place] [address] [place] [id number] [place] [address] May, Morbid obesity E66.01 [place] [address] [place] [id number] [place] [address] May, Encounter for immunization Z 23 [place] [address] [place] [id number] [place] [address] May, Major depressive disorder, r ecurrent episode, moderate F33.1 ; Panic disorder without agoraphobia F41.0 and Morbid obesity E66.01 [place] [address] [place] [id number] [place] [address] May, Major depressive disorder in full remission F32.5 and Panic disorder without agoraphobia F41.0 [place] [address] [place] [id number] [place] [address] Apr, Morbid obesity E66.01 [place] [address] [place] [id number] [place] [address] Apr, Slow transit constipation K5 9.01 and Cellulitis of left lower extremity L03.116 [place] [address] [place] [id number] [place] [address] Apr, Morbid obesity E66.01 [place] [address] [place] [id number] [place] [address] Apr, [place] [address] [place] [id number] [place] [address] Apr, Major depressive disorder, r ecurrent episode, moderate F33.1 and Panic disorder without agoraphobia F41.0 [place] [address] [address] Mar, Viral upper respiratory trac t infection J06.9 [place] [address] [place] [id number] [place] [address] Mar, Bronchitis J40 and Encounter for immunization Z23 [place] [address] [address] Mar, Morbid obesity E66.01 [place] [address] [address] Feb, Major depressive disorder, r ecurrent episode, moderate F33.1 and Panic disorder without agoraphobia F41.0 [place] [address] [address] Feb, Morbid obesity E66.01 [place] [address] [address] 06 Feb, 2019 Onychomycosis B35.1 ; 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 and Xerosis of skin L85.3 [place] [address] [address] 04 Feb, 2019 Major depressive disorder, r ecurrent episode, moderate F33.1 ; Panic disorder without agoraphobia F41.0 and Morbid obesity E66.01 [place] [address] [place] [id number] [place] [address] Jan, Major depressive disorder in full remission F32.5 and Panic disorder without agoraphobia F41.0 [place] [address] [address] Jan, Pneumonia of both lower lobe s due to infectious organism J18.1 and Morbid obesity E66.01 [place] [address] [address] Jan, [facility] [address] [place] [id number] [place] [address] Jan, Major depressive disorder in full remission F32.5 and Panic disorder without agoraphobia F41.0 [place] [address] [facility] [id number] [address] [place] [address] Jan, [place] [address] [place] [id number] [place] [address] Jan, Major depressive disorder, r ecurrent episode, moderate F33.1 ; Panic disorder without agoraphobia F41.0 and Morbid obesity E66.01 [place] [address] [place] [id number] [place] [address] Dec, Bilious vomiting with nausea R11.14 ; Coughing R05 and Choking, subsequent encounter T17.308D [place] [address] [address] Dec, Morbid obesity E66.01 [place] [address] [place] [id number] [place] [address] Dec, Major depressive disorder, r ecurrent episode, moderate F33.1 and Panic disorder without agoraphobia F41.0 [place] [address] [place] [id number] [place] [phone] Dec, [place] [address] [place] [id number] [place] [address] Dec, Major depressive disorder, r ecurrent episode, moderate F33.1 [place] [address] [facility] [id number] [address] [place] [address] Nov, Major depressive disorder, r ecurrent episode, moderate F33.1 ; Panic disorder without agoraphobia F41.0 and Morbid obesity E66.01 [facility] [address] [place] [id number] [place] [address] Nov, Morbid obesity E66.01 [place] [address] [address] Nov, Major depressive disorder, r ecurrent episode, moderate F33.1 and Panic disorder without agoraphobia F41.0 [facility] [place] [address] [address] Nov, Allergic reaction, initial e ncounter T78.40XA and Morbid obesity E66.01 [place] [address] [address] Nov, [place] [address] [address] Nov, Morbid obesity E66.01 ; Swal lowing problem R13.10 and Hypertension, benign I10 [facility] WALK IN [place] [address] [address] Nov, Morbid obesity E66.01 ; COPD exacerbation J44.1 and Non- recurrent acute suppurative otitis media of left ear without spontaneous rupture of tympanic membrane H66.002 [place] [address] [address] Nov, Onychomycosis B35.1 ; Neurop athy G62.9 and Fissure in skin of foot R23.4 [place] [address] [address] October, Major depressive disorder, r ecurrent episode, moderate F33.1 ; Panic disorder without agoraphobia F41.0 and Morbid obesity E66.01 [facility] WALK IN [facility] [address] [address] October, Viral upper respiratory trac t infection J06.9 [place] [address] [address] October, [place] [address] [address] October, Major depressive disorder, r ecurrent episode, moderate F33.1 and Panic disorder without agoraphobia F41.0 [facility] [address] [facility] [id number] [address] [place] [address] October, [facility] [address] [facility] [id number] [address] [place] [phone] October, [facility] [address] [facility] [id number] [address] [place] [address] October, [facility] [address] [facility] [id number] [address] [place] [address] October, [facility] [address] [facility] [id number] [address] [place] [phone] October, [facility] [address] [facility] [id number] [address] [place] [phone] October, [facility] [address] [facility] [id number] [address] [place] [address] October, Major depressive disorder, r ecurrent episode, moderate F33.1 and Panic disorder without agoraphobia F41.0 [facility] [address] [facility] [id number] [address] [place] [address] Sep, Morbid obesity E66.01 and Vane mbar neuritis M54.16 [facility] [address] [facility] [id number] [address] [place] [address] Sep, Panic disorder without agora phobia F41.0 and Major depressive disorder, recurrent episode, moderate F33.1 [facility] [address] [facility] [id number] [address] [place] [address] Sep, Gastroenteritis K52.9 ; Low back pain M54.5 ; Other chronic pain G89.29 and Morbid obesity E66.01 [facility] [address] [facility] [id number] [address] [place] [address] Sep, Major depressive disorder, r ecurrent episode, moderate F33.1 ; Panic disorder without agoraphobia F41.0 and Social phobia F40.10 [place] [address] [address] Sep, Panic disorder without agora phobia F41.0 [place] [address] [address] Sep, Panic disorder without agora phobia F41.0 [place] [address] [address] Aug, Panic disorder without agora phobia F41.0 ; Major depressive disorder, recurrent episode, moderate F33.1 ; Social phobia F40.10 ; Psychotic disorder F29 ; Tardive dyskinesia G24.01 and Morbid obesity E66.01 [place] [address] [address] Aug, Dysthymic disorder F34.1 and Psychotic disorder F29 [place] [address] [address] Aug, Encounter for Medicare annua l wellness exam Z00.00 ; Morbid obesity E66.01 and 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 [place] [address] [address] Aug, Dysthymic disorder F34.1 and Psychotic disorder F29 [place] [address] [address] Aug, Neuropathy G62.9 ; Onychomyc osis B35.1 and Xerosis of skin L85.3 [place] [address] [address] Jul, [place] [address] [address] Jul, Mood disorder F39 ; Wheezing R06.2 ; Choking, initial encounter T17.308A and Coughing R05 [place] [address] [address] Jul, Low back pain M54.5 [facility] [address] [facility] [id number] [address] [place] [address] Jun, Flu-like symptoms R68.89 ; B TN 45.0-49.9, adult Z68.42 ; COPD exacerbation J44.1 and Acute bronchitis J20.9 [facility] [address] [place] [id number] [place] [address] Jun, [facility] [address] [place] [id number] [address] [place] [address] May, [place] [address] [address] May, Onychomycosis B35.1 and 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 [place] [address] [address] May, Low back pain M54.5 and Abdoulaye a leg R60.0 [place] [address] [place] [id number] [place] [address] 11 May, 2018 BMI 45.0-49.9, adult Z68.42 ; Well woman exam with routine gynecological exam Z01.419 and Breast cancer screening Z12.31 [place] [address] [place] [id number] [place] [address] Apr, Arthritis M19.90 [place] [address] [place] [id number] [place] [address] 16 Apr, 2018 Arthritis M19.90 and Otalgia of both ears H92.03 [place] [address] [place] [id number] [place] [address] Feb, [place] [address] [address] Feb, Low back pain M54.5 ; Other chronic pain G89.29 ; Exertional asthma J45.990 and Encounter for immunization Z23 [place] [address] [address] Feb, Skin fissures R23.4 ; Neurop athy G62.9 and Onychomycosis B35.1 [place] [address] [address] 05 Feb, 2018 Dysthymic disorder F34.1 [place] [address] [address] Feb, [place] [address] [address] Jan, [place] [address] [address] Jan, Abrasion of right elbow, ini tial encounter S50.311A ; Abrasion, right knee, initial encounter S80.211A and Sprain of other ligament of right ankle, initial encounter S93.491A [place] [address] [address] Jan, [facility] [address] [address] Jan, Injury of left ankle, initia l encounter S99.912A ; Fall down stairs, initial encounter W10.8XXA and BMI 45.0-49.9, adult Z68.42 [place] [address] [address] Jan, COPD exacerbation J44.1 [place] [address] [address] 13 Jan, 2018 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 [place] [address] [address] 08 Jan, 2018 Bronchitis J40 and Acute sup purative otitis media of left ear without spontaneous rupture of tympanic membrane, recurrence not specified H66.002 [place] [address] [address] Jan, [place] [address] [place] [id number] [place] [address] Jan, Bronchitis J40 and BMI 40.0- 44.9, adult Z68.41 [place] [address] [place] [id number] [place] [address] Jan, [place] [address] [place] [id number] [place] [address] Dec, Gastric pain R10.9 [place] [address] [place] [id number] [place] [address] Dec, [place] [address] [place] [id number] [place] [address] Dec, History of illicit drug use Z87.898 ; Neuropathy G62.9 ; COPD (chronic obstructive pulmonary disease) with chronic bronchitis J44.9 and Acute pain of right knee M25.561 [place] [address] [place] [address] Nov, [place] [address] [address] Nov, Onychomycosis B35.1 and Cont usion of left foot, subsequent encounter S90.32XD [place] [address] [place] [id number] [place] [address] Nov, COPD exacerbation J44.1 [place] [address] [place] [id number] [place] [address] Sep, [place] [address] [place] [id number] [place] [address] Sep, Dysthymic disorder F34.1 ; T obacco abuse Z72.0 ; Pain in right knee M25.561 ; Pain in left knee M25.562 ; Other chronic pain G89.29 and BMI 40.0- 44.9, adult Z68.41 [place] [address] [address] Aug, Major depressive disorder, r ecurrent episode, moderate F33.1 and Social phobia F40.10 [place] [address] [address] 14 Aug, 2017 Dysthymic disorder F34.1 ; N on-pressure chronic ulcer of left thigh, unspecified ulcer stage L97.129 ; Tobacco abuse Z72.0 ; Mild chronic obstructive pulmonary disease J44.9 and Forgetfulness R68.89 [place] [address] [address] 09 Aug, 2017 Onychomycosis B35.1 ; Fissur e in skin of foot R23.4 and Foot callus L84 [facility] [address] [address] Jul, Right medial knee pain M25.5 61 ; Upper respiratory tract infection, unspecified type J06.9 and BMI 40.0-44.9, adult Z68.41 [facility]ALK [facility] [place] [address] [address] 08 Jul, 2017 Nausea and vomiting, intract ability of vomiting not specified, unspecified vomiting type R11.2 ; Left ear pain H92.02 and Gastric pain R10.9 [place] [address] [address] Apr, Encounter for immunization Z 23 [place] [address] [address] Apr, Onychomycosis B35.1 ; Xerosi s of skin L85.3 ; Neuropathy G62.9 and 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 [place] [address] [place] [id number] [place] [address] Jan, Onychomycosis B35.1 and Neur opathy G62.9 [place] [address] [address] Dec, [facility] [address] [id number] [address] [place] [address] Dec, [facility] [address] [id number] [address] [place] [address] Nov, [facility] [address] [facility] [id number] [address] [place] [address] Aug, [facility] [address] [id number] [address] [place] [id number] Aug, [facility] [address] [id number] [address] [place] [address] Jul, [facility] [address] [facility] [id number] [address] [place] [address] Jul, [facility] [address] [facility] [id number] [address] [place] [address] Jul, Decubitus ulcer of left thig h, stage 2 L89.892 [facility] [address] [facility] [id number] [address] [place] [address] 17 Jul, 2016 Decubitus ulcer of left thig h, stage 2 L89.892 [facility] [address] [facility] [id number] [address] [place] [address] 17 Jul, 2016 [facility] [address] [facility] [id number] [address] [place] [address] 15 Jul, 2016 Decubitus ulcer of left thig h, stage 2 L89.892 [facility] [address] [facility] [id number] [address] [place] [address] 14 Jul, 2016 [facility] [address] [facility] [id number] [address] [place] [address] 13 Jul, 2016 Cellulitis of other specifie d site L03.818 ; Illicit drug use F19.90 and Decubitus ulcer of left thigh, stage 2 L89.892 [facility] [address] [facility] [id number] [address] [place] [address] 08 Jul, 2016 [facility] [address] [place] [id number] [address] [place] [address] Jul, Cellulitis of right breast N 61.0 [facility] [address] [facility] [id number] [address] [place] [address] Jun, [facility] [address] [address] Jun, [place] [address] [place] [id number] [place] [address] Jun, Wheezing R06.2 and Arthralgi a, unspecified joint M25.50 [place] [address] [place] [id number] [place] [address] May, [place] [address] [address] May, [facility] [address] [place] [id number] [address] [place] [address] May, [place] [address] [address] 05 May, 2016 Shortness of breath R06.02 [place] [address] [place] [id number] [place] [address] May, Onychomycosis B35.1 and Fiss ure in skin of foot R23.4 [facility] [address] [place] [id number] [place] [address] Apr, [facility] [address] [address] 18 Apr, 2016 Dizziness R42 [place] [address] [place] [id number] [place] [address] 14 Apr, 2016 Shortness of breath R06.02 ; Essential hypertension I10 ; Dizziness R42 and On home oxygen therapy Z99.81 [facility] [address] [id number] [address] [place] [phone] Apr, [facility] [address] [id number] [address] [place] [id number] Apr, [facility] [address] [id number] [address] [place] [address] Apr, [facility] [address] [id number] [address] [place] [id number] Apr, [facility] [address] [id number] [address] [place] [id number] Apr, [facility] [address] [id number] [address] [place] [id number] Apr, [facility] [address] [id number] [address] [place] [id number] Apr, [facility] [address] [id number] [address] [place] [address] Mar, Mild chronic obstructive pul monary disease J44.9 [facility] [address] [id number] [address] [place] [id number] Mar, [facility] [address] [id number] [address] [place] [id number] Mar, Epigastric pain R10.13 ; Low back pain M54.5 ; Other chronic pain G89.29 and Breast cancer screening Z12.39 [facility] [address] [id number] [address] [place] [id number] Mar, [facility] [address] [id number] [address] [place] [id number] Mar, [facility] [address] [id number] [address] [place] [phone] Feb, [facility] [address] [id number] [address] [place] [id number] Feb, [facility] [address] [id number] [address] [place] [phone] Feb, Fissure in skin of foot R23. 4 and Onychomycosis B35.1 [place] [address] [address] [place] [id number] [address] [place] [phone] Jan, Agoraphobia F40.00 [place] [address] [address] [facility] [id number] [address] [place] [id number] Dec, Agoraphobia F40.00 [place] [address] [address] [facility] [id number] [address] [place] [id number] Dec, Mild persistent asthma witho ut complication J45.30 ; Dysthymic disorder F34.1 and Upper respiratory tract infection, unspecified type J06.9 [place] [address] [address] [facility] [id number] [address] [place] [id number] Nov, Agoraphobia F40.00 [place] [address] [address] [place] [id number] [address] [place] [id number] October, Agoraphobia F40.00 [place] [address] [address] [place] [id number] [address] [place] [id number] Sep, Panic disorder without agora phobia F41.0 ; Agoraphobia F40.00 and Dysthymic disorder F34.1 [place] [address] [address] [place] [id number] [address] [place] [id number] Sep, Panic attacks F41.0 [place] [address] [address] [facility] [id number] [address] [place] [phone] Sep, [place] [address] [address] [facility] [id number] [address] [place] [id number] Sep, Panic disorder without agora phobia F41.0 ; Varicose veins of both lower extremities I83.93 and Fatigue R53.83 [place] [address] [address] [facility] [id number] [address] [place] [id number] 14 Sep, 2015 Fatigue R53.83 [place] [address] [address] [place] [id number] [address] [place] [id number] Sep, [facility] [address] [place] [id number] [address] [place] [id number] Aug, [facility] [address] [place] [id number] [address] [place] [id number] Aug, [facility] [address] [id number] Aug, Type 2 diabetes mellitus wit h diabetic neuropathic arthropathy E11.610 [place] [address] [place] [id number] [address] [place] [id number] Aug, Panic disorder without agora phobia F41.0 ; Agoraphobia F40.00 and Dysthymic disorder F34.1 [place] [address] [id number] Aug, Shortness of breath R06.02 ; Panic attacks F41.0 ; COPD (chronic obstructive pulmonary disease) J44.9 ; Tobacco abuse Z72.0 ; Family history of diabetes mellitus Z83.3 and Weight gain R63.5 [place] [address] [id number] Aug, [place] [address] [address] [place] [id number] [address] [place] [id number] Jul, [place] [address] [address] Jun, Onychomycosis B35.1 ; Neurop athy G62.9 and Impaired circulation I99.9 [place] [address] [address] [place] [id number] [address] [place] [id number] 09 Mar, 2015 Fissure in skin of foot R23. 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 [place] [id number] [place] [id number] 18 Feb, 2015 Family history of coronary a rteriosclerosis V17.3 [facility] [address] [id number] [address] [place] [id number] 15 Feb, 2015 Allergic rhinitis due to darien agnieszka 477.0 ; Unspecified breast screening V76.10 ; Anxiety 300.00 and Family history of coronary arteriosclerosis V17.3 [facility] [address] [id number] [address] [place] [id number] Jan, [facility] [address] [id number] [address] [place] [id number] Dec, [facility] [address] [id number] [address] [place] [id number] Dec, Onychomycosis 110.1 and Skin fissures 709.8 [facility] [address] [id number] [address] [place] [id number] Sep, [facility] [address] [id number] [address] [place] [id number] Sep, [facility] [address] [id number] [address] [place] [id number] Aug, [facility] [address] [id number] [address] [place] [id number] Aug, [facility] [address] [id number] [address] [place] [id number] Jul, [facility] [address] [id number] [address] [place] [id number] Jul, [facility] [address] [id number] [address] [place] [id number] Jun, [facility] [address] [id number] [address] [place] [id number] Jun, [facility] [address] [id number] [address] [place] [id number] Jun, [facility] [address] [facility] [id number] [address] [place] [id number] Jun, [facility] [address] [id number] [address] [place] [address], [place] [id number] Jun, [facility] [address] [id number] [address] [place] [address], [place] [id number] May, [facility] [address] [id number] [address] [place] [address], [place] [address] May, [facility] [address] [id number] [address] [place] [address], [place] [address] May, [facility] [address] [id number] [address] [place] [address], [place] [id number] May, [facility] [address] [id number] [address] [place] [address], [place] [address] May, [facility] [address] [id number] [address] [place] [address], [place] [address] May, [facility] [address] [id number] [address] [place] [address], [place] [address] May, [facility] [address] [id number] [address] [place] [address], [place] [address] May, [facility] [address] [id number] [address] [place] [address], [place] [id number] Apr, [facility] [address] [id number] [address] [place] [address], [place] [address] Apr, [facility] [address] [id number] [address] [place] [address], [place] [address] Apr, [facility] [address] [id number] [address] [place] [address], [place] [id number] Apr, [facility] [address] [id number] [address] [place] [address], [place] [id number] Apr, [facility] [address] [id number] [address] [place] [address], [place] [address] Apr, [facility] [address] [id number] [address] [place] [id number] 07 Apr, 2014 [facility] [address] [id number] [address] [place] [address], [place] [id number] Apr, [facility] [address] [id number] [address] [place] [id number] Apr, [facility] [address] [id number] [address] [place] [address], [place] [address] Apr, [facility] [address] [id number] [address] [place] [address], [place] [id number] Mar, [facility] [address] [id number] [address] [place] [address], [place] [id number] Mar, [facility] [address] [id number] [address] [place] [address], [place] [address] Mar, [facility] [address] [id number] [address] [place] [id number] Mar, [facility] [address] [id number] [address] [place] [address], [place] [address] Mar, [facility] [address] [id number] [address] [place] [address], [place] [address] Mar, [facility] [address] [id number] [address] [place] [id number] Mar, [facility] [address] [id number] [address] [place] [address], [place] [address] Mar, [facility] [address] [id number] [address] [place] [id number] Mar, [facility] [address] [id number] [address] [place] [address], [place] [address] Mar, [facility] [address] [id number] [address] [place] [address], [place] [address] Mar, [facility] [address] [id number] [address] [place] [address], [place] [address] Mar, [facility] [address] [id number] [address] [place] [address], [place] [address] 22 Mar, 2013 [facility] [address] [id number] [address] [place] [address], [place] [address] 22 Mar, 2013 [facility] [address] [id number] [address] [place] [address], [place] [id number] 22 Mar, 2013 [facility] [address] [id number] [address] [place] [address], [place] [address] 20 Mar, 2013 [facility] [address] [id number] [address] [place] [address], [place] [id number] 20 Mar, 2013 [facility] [address] [id number] [address] [place] [address], [place] [id number] 16 Mar, 2013 [facility] [address] [id number] [address] [place] [address], [place] [address] 16 Mar, 2014 [facility] [address] [id number] [address] [place] [address], [place] [address] 15 Mar, 2013 [facility] [address] [id number] [address] [place] [address], [place] [address] 14 Mar, 2014 [facility] [address] [id number] [address] [place] [address], [place] [address] 14 Mar, 2013 [facility] [address] [id number] [address] [place] [address], [place] [address] 14 Mar, 2014 [facility] [address] [id number] [address] [place] [address], [place] [address] 14 Mar, 2013 [facility] [address] [id number] [address] [place] [address], [place] [address] 09 Mar, 2014 [facility] [address] [id number] [address] [place] [address], [place] [address] 09 Mar, 2013 [facility] [address] [id number] [address] [place] [address], [place] [id number] 09 Mar, 2014 [facility] [address] [id number] [address] [place] [address] [address] Mar, [facility] [address] [id number] [address] [place] [address], [place] [id number] 30 Feb, 2013 [facility] [address] [id number] [address] [place] [address], [place] [id number] 30 Feb, 2013 [facility] [address] [id number] [address] [place] [address], [place] [address] 30 Feb, 2013 [facility] [address] [id number] [address] [place] [address], [place] [address] 30 Feb, 2013 [facility] [address] [id number] [address] [place] [address], [place] [id number] Feb, 2013 [facility] [address] [id number] [address] [place] [address], [place] [address] Feb, 2013 [facility] [address] [id number] [address] [place] [address], [place] [address] Feb, 2013 [facility] [address] [id number] [address] [place] [address], [place] [address] Feb, 2013 [facility] [address] [id number] [address] [place] [address], [place] [address] Feb, 2013 [facility] [address] [id number] [address] [place] [address], [place] [id number] Feb, 2013 [facility] [address] [id number] [address] [place] [address], [place] [address] Feb, 2013 [facility] [address] [id number] [address] [place] [address], [place] [address] Feb, 2013 [facility] [address] [id number] [address] [place] [address], [place] [id number] Jan, [facility] [address] [id number] [address] [place] [address], [place] [address] Jan, [facility] [address] [id number] [address] [place] [address], [place] [address] Jan, [facility] [address] [id number] [facility] [place] [address] Jan, [facility] [address] [id number] [address] [place] [address], [place] [address] Jan, [facility] [address] [id number] [address] [place] [address], [place] [id number] Jan, [facility] [address] [id number] [address] [place] [address], [place] [id number] Jan, [facility] [address] [id number] [address] [place] [address], [place] [address] Jan, [facility] [address] [id number] [address] [place] [address], [place] [address] Jan, [facility] [address] [id number] [address] [place] [address], [place] [address] Jan, [facility] [address] [id number] [address] [place] [address], [place] [address] Jan, [facility] [address] [id number] [address] [place] [address], [place] [address] Jan, [facility] [address] [id number] [address] [place] [address], [place] [id number] Jan, [facility] [address] [id number] [address] [place] [address], [place] [address] Dec, [facility] [address] [id number] [address] [place] [address], [place] [address] Dec, [facility] [address] [id number] [address] [place] [address], [place] [address] Dec, [facility] [address] [id number] [address] [place] [address], [place] [address] Dec, [facility] [address] [id number] [address] [place] [address], [place] [address] Dec, [facility] [address] [id number] [address] [place] [address], [place] [address] Dec, [facility] [address] [id number] [facility] [place] [address] Dec, [facility] [address] [id number] [address] [place] [address], [place] [address] Dec, [facility] [address] [id number] [address] [place] [address], [place] [address] Dec, [facility] [address] [id number] [address] [place] [address], [place] [address] Dec, [facility] [address] [id number] [address] [place] [address], [place] [address] Dec, [facility] [address] [id number] [address] [place] [address], [place] [address] Dec, [facility] [address] [id number] [address] [place] [address], [place] [address] Dec, [facility] [address] [id number] [address] [place] [address], [place] [address] Dec, [facility] [address] [id number] [address] [place] [address], [place] [address] Dec, [facility] [address] [id number] [address] [place] [address], [place] [address] Dec, [facility] [address] [id number] [address] [place] [address], [place] [address] Dec, [facility] [address] [id number] [address] [place] [address], [place] [address] Dec, [facility] [address] [id number] [address] [place] [address], [place] [address] Nov, [facility] [address] [id number] [address] [place] [address], [place] [address] Nov, [facility] [address] [id number] [address] [place] [address], [place] [address] Nov, [facility] [address] [id number] [address] [place] [address], [place] [address] Nov, [facility] [address] [id number] [facility] [place] [address] Nov, [facility] [address] [id number] [address] [place] [address], [place] [address] Nov, [facility] [address] [id number] [address] [place] [address], [place] [address] Nov, [facility] [address] [id number] [address] [place] [address], [place] [address] Nov, [facility] [address] [id number] [address] [place] [address], [place] [address] Nov, [facility] [address] [id number] [address] [place] [address], [place] [address] Nov, [facility] [address] [id number] [address] [place] [address], [place] [address] Nov, [facility] [address] [id number] [address] [place] [address], [place] [address] Nov, [facility] [address] [id number] [address] [place] [address], [place] [address] Nov, [facility] [address] [id number] [address] [place] [address], [place] [address] Nov, [facility] [address] [id number] [address] [place] [address], [place] [address] Nov, [facility] [address] [id number] [address] [place] [address], [place] [address] Nov, [facility] [address] [id number] [address] [place] [address], [place] [address] Nov, [facility] [address] [id number] [address] [place] [address], [place] [address] Nov, [facility] [address] [id number] [address] [place] [address], [place] [address] Nov, [facility] [address] [id number] [address] [place] [address], [place] [address] Nov, [facility] [address] [id number] [address] [place] [address], [place] [address] October, [facility] [address] [id number] [address] [place] [address], [place] [address] October, [facility] [address] [id number] [address] [place] [address], [place] [address] October, [facility] [address] [id number] [address] [place] [address], [place] [address] October, [facility] [address] [id number] [address] [place] [address], [place] [address] Sep, [facility] [address] [id number] [address] [place] [address], [place] [address] Sep, [facility] [address] [id number] [address] [place] [address], [place] [address] Sep, [facility] [address] [id number] [address] [place] [address], [place] [address] Sep, [facility] [address] [id number] [address] [place] [address], [place] [address] Sep, [facility] [address] [id number] [address] [place] [address], [place] [address] Sep, [facility] [address] [id number] [address] [place] [address], [place] [address] Sep, [facility] [address] [id number] [address] [place] [address], [place] [address] Sep, [facility] [address] [id number] [address] [place] [address], [place] [address] Sep, [facility] [address] [id number] [address] [place] [address], [place] [address] Aug, [facility] [address] [id number] [address] [place] [address], [place] [address] Aug, [facility] [address] [id number] [facility] [place] [address] Aug, [facility] [address] [id number] [address] [place] [address], [place] [address] Aug, [facility] [address] [id number] [address] [place] [address], [place] [address] Aug, [facility] [address] [id number] [address] [place] [address], [place] [address] Aug, [facility] [address] [id number] [address] [place] [address], [place] [address] Aug, [facility] [address] [id number] [address] [place] [address], [place] [address] Aug, [facility] [address] [id number] [address] [place] [address], [place] [address] Jul, [facility] [address] [id number] [address] [place] [address], [place] [address] Jul, [facility] [address] [id number] [address] [place] [address], [place] [id number] Jun, [facility] [address] [id number] [address] [place] [address], [place] [id number] Jun, [facility] [address] [id number] [address] [place] [address], [place] [id number] Jun, [facility] [address] [id number] [address] [place] [address], [place] [id number] Jun, [facility] [address] [id number] [address] [place] [address], [place] [id number] Jun, [facility] [address] [id number] [address] [place] [address], [place] [id number] Jun, [facility] [address] [id number] [address] [place] [address], [place] [address] Jun, [facility] [address] [id number] [address] [place] [address], [place] [id number] 15 Jun, 2013 [facility] [address] [id number] [address] [place] [address], [place] [id number] 15 Jun, 2013 [facility] [address] [id number] [address] [place] [address], [place] [id number] 14 Jun, 2013 [facility] [address] [id number] [address] [place] [address], [place] [id number] 02 Jun, 2013 [facility] [address] [id number] [address] [place] [address], [place] [id number] 02 Jun, 2013 [facility] [address] [id number] [address] [place] [address], [place] [id number] 31 May, 2013 [facility] [address] [id number] [address] [place] [address], [place] [id number] 31 May, 2013 [facility] [address] [id number] [address] [place] [address], [place] [id number] 31 May, 2013 [facility] [address] [id number] [address] [place] [address], [place] [id number] 31 May, 2013 [facility] [address] [id number] [address] [place] [address], [place] [id number] 31 May, 2013 [facility] [address] [id number] [address] [place] [address], [place] [id number] 31 May, 2013 [facility] [address] [id number] [address] [place] [address], [place] [id number] 26 May, 2013 [facility] [address] [id number] [address] [place] [address], [place] [id number] 23 May, 2013 [facility] [address] [id number] [address] [place] [address], [place] [id number] 23 May, 2013 [facility] [address] [id number] [address] [place] [address], [place] [id number] 16 May, 2013 [facility] [address] [id number] [address] [place] [address], [place] [id number] 16 May, 2013 [facility] [address] [id number] [address] [place] [address], [place] [id number] May, [facility] [address] [id number] [address] [place] [address], [place] [address] May, [facility] [address] [id number] [address] [place] [address], [place] [id number] Apr, [facility] [address] [id number] [address] [place] [address], [place] [id number] Apr, [facility] [address] [id number] [address] [place] [address], [place] [id number] Mar, [facility] [address] [id number] [address] [place] [address], [place] [address] Mar, [facility] [address] [id number] [address] [place] [address], [place] [id number] Feb, [facility] [address] [id number] [address] [place] [address], [place] [id number] Feb, [facility] [address] [id number] [address] [place] [address], [place] [id number] Feb, [facility] [address] [id number] [address] [place] [address], [place] [id number] Feb, [facility] [address] [id number] [address] [place] [address], [place] [id number] Jan, [facility] [address] [id number] [address] [place] [address], [place] [id number] Jan, [facility] [address] [id number] [address] [place] [address], [place] [id number] Jan, [facility] [address] [id number] [address] [place] [address], [place] [id number] Jan, [facility] [address] [id number] [address] [place] [address], [place] [id number] Jan, [facility] [address] [id number] [address] [place] [address], [place] [id number] Jan, [facility] [address] [id number] [address] [place] [address], [place] [id number] Dec, [facility] [address] [id number] [address] [place] [address], [place] [id number] Dec, [facility] [address] [id number] [address] [place] [address], [place] [id number] Dec, [facility] [address] [id number] [address] [place] [address], [place] [id number] Dec, [facility] [address] [id number] [address] [place] [address], [place] [id number] Nov, [facility] [address] [id number] [address] [place] [address], [place] [id number] October, [facility] [address] [id number] [address] [place] [address], [place] [id number] October, [facility] [address] [id number] [address] [place] [address], [place] [id number] October, [facility] [address] [id number] [address] [place] [address], [place] [id number] Sep, [facility] [address] [id number] [address] [place] [address], [place] [id number] Sep, [facility] [address] [id number] [address] [place] [address], [place] [id number] Jun, [facility] [address] [id number] [address] [place] [address], [place] [id number] Jun, [facility] [address] [id number] [address] [place] [address], [place] [id number] Jun, [facility] [address] [id number] [address] [place] [address], [place] [id number] Apr, [facility] [address] [id number] [address] [place] [address], [place] [id number] Apr, [facility] [address] [id number] [address] [place] [address], [place] [id number] Apr, [facility] [address] [id number] [address] [place] [address], [place] [id number] Apr, [facility] [address] [id number] [address] [place] [address], [place] [id number] Mar, [facility] [address] [id number] [address] [place] [address], [place] [id number] Mar, [facility] [address] [id number] [address] [place] [address], [place] [id number] Mar, [facility] [address] [id number] [address] [place] [address], [place] [id number] Mar, [facility] [address] [id number] [address] [place] [address], [place] [id number] Feb, [facility] [address] [id number] [address] [place] [address], [place] [id number] Feb, [facility] [address] [id number] [address] [place] [address], [place] [id number] Feb, [facility] [address] [id number] [address] [place] [address], [place] [id number] Jan, [facility] [address] [id number] [address] [place] [address], [place] [id number] Jan, [facility] [address] [id number] [address] [place] [address], [place] [id number] Jan, [facility] [address] [id number] [address] [place] [address], [place] [id number] Jan, [facility] [address] [id number] [address] [place] [address], [place] [id number] Dec, [facility] [address] [id number] [address] [place] [address], [place] [id number] Dec, [facility] [address] [id number] [address] [place] [address], [place] [id number] Nov, [facility] [address] [id number] [address] [place] [address], [place] [id number] Nov, [facility] [address] [id number] [address] [place] [address], [place] [id number] October, [facility] [address] [id number] [address] [place] [address], [place] [id number] October, [facility] [address] [id number] [address] [place] [address], [place] [id number] October, [facility] [address] [id number] [address] [place] [address], [place] [id number] Sep, [facility] [address] [id number] [address] [place] [address], [place] [id number] Sep, [facility] [address] [id number] [address] [place] [address], [place] [id number] Sep, [facility] [address] [id number] [address] [place] [address], [place] [id number] Aug, [facility] [address] [id number] [address] [place] [address], [place] [id number] Aug, [facility] [address] [id number] [address] [place] [address], [place] [id number] Aug, [facility] [address] [id number] [address] [place] [address], [place] [id number] Aug, [facility] [address] [id number] [address] [place] [address], [place] [id number] 07 Aug, 2011 [facility] [address] [id number] [address] [place] [address], [place] [id number] 23 Jul, 2011 [facility] [address] [id number] [address] [place] [address], [place] [id number] 16 Jul, 2011 [facility] [address] [id number] [address] [place] [address], [place] [id number] 13 Jul, 2011 [facility] [address] [id number] [address] [place] [address] [place] [id number] 09 Jul, 2011 [facility] [address] [id number] [address] [place] [address], [place] [id number] Jul, [facility] [address] [id number] [address] [place] [address], [place] [id number] 06 Jul, 2011 [facility] [address] [id number] [address] [place] [address], [place] [id number] Jul, [facility] [address] [id number] [address] [place] [address], [place] [id number] Jul, [facility] [address] [id number] [address] [place] [address], [place] [id number] Jun, [facility] [address] [id number] [address] [place] [address], [place] [id number] Jun, [facility] [address] [id number] [address] [place] [address], [place] [id number] May, [facility] [address] [id number] [address] [place] [address], [place] [id number] May, [facility] [address] [id number] [address] [place] [address], [place] [phone] May, [facility] [address] [id number] [address] [place] [address], [place] [id number] May, [facility] [address] [id number] [address] [place] [address], [place] [id number] Apr, [facility] [address] [id number] [address] [place] [address], [place] [id number] Apr, [facility] [address] [id number] [address] [place] [address], [place] [id number] Apr, [facility] [address] [id number] [address] [place] [address], [place] [id number] Mar, [facility] [address] [id number] [address] [place] [address], [place] [id number] Mar, [facility] [address] [id number] [address] [place] [address], [place] [id number] 18 Mar, 2011 [facility] [address] [id number] [address] [place] [address], [place] [id number] 2011 [facility] [address] [id number] [address] [place] [address], [place] [id number] Dec, [facility] [address] [id number] [address] [place] [address], [place] [id number] October, [facility] [address] [id number] [address] [place] [address], [place] [id number] May, [facility] [address] [id number] [address] [place] [address], [place] [id number] 13 May, 2010 [facility] [address] [id number] [address] [place] [address], [place] [id number] 13 May, 2010 [facility] [address] [id number] [address] [place] [address], [place] [id number] 06 May, 2010 [facility] [address] [id number] [address] [place] [address], [place] [id number] Mar, [facility] [address] [id number] [address] [place] [address], [place] [id number] Mar, [facility] [address] [id number] [address] [place] [address], [place] [id number] 31 May, 2009 [facility] [address] [id number] [address] [place] [id number] 30 May, 2009 [facility] [address] [id number] [address] [place] [address], [place] [id number] 08 May, 2009 [facility] [address] [id number] [address] [place] [address], [place] [id number] 08 May, 2009 [facility] [address] [id number] [address] [place] [address], [place] [id number] Apr, [facility] [address] [id number] [address] [place] [id number] Apr, [facility] [address] [facility] [id number] [address] [address] October, IMMUNIZATIONS No Known Immunizations SOCIAL HISTORY [...]
--- OUTSIDE RECORDS SUMMARY | 2020-01-13 11:50 | XMS REPORT ---
Author Author Monique RAHMAN [facility] Address [address] [place] [address] Care Team Providers Care Fisheries Manager Name Role Phone RASHEED RAHMAN Unavailable PROBLEMS Type Condition ICD9-CM Code XFT17-PA Code Onset Dates Condition S tatus SNOMED Code Problem History of illicit drug use Z87.898 Ac tive 754414226 Problem Snoring R06.83 Active 53089705 Problem Impaired circulation I99.9 Active 84990401 Problem MRSA (methicillin resistant staph aureus) culture positive Z22.322 Active 449180756 Problem Panic disorder without agoraphobia F41.0 Active 66338411 Problem Dysthymic disorder F34.1 Active 7 5784401 Problem Mood disorder F39 Active 610509 05 Problem Arthritis M19.90 Active 2644182 Problem Mild chronic obstructive pulmonary disease J44.9 Active 688612998 Problem Mild persistent asthma without complication J45.30 Active 101448245 Problem Essential hypertension I10 Active 37367167 Problem On home oxygen therapy Z99.81 Active 798899867524 Problem Social phobia F40.10 Active 427314 02 Problem Neuropathy G62.9 Active 533694844 Problem 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 Active 400149487 Problem Major depressive disorder, recurrent episode, moderate F33.1 Active 922180093 Problem Psychotic disorder F29 Active 6 9204135 Problem Hypertension, benign I10 Active 72945131 Problem Onychomycosis B35.1 Active 161447 008 Problem Body mass index (BMI) 40.0-44.9, adult Z68.41 Active 335136666 Problem Varicose veins of both lower extremities I83.93 Active 32556375 Problem Sciatica, left side M54.32 Active 85162962 Problem Agoraphobia F40.00 Active 14599788 Problem Fatigue R53.83 Active 49338631 Problem Major depressive disorder in full remission F32.5 Active 80016144 Problem Slow transit constipation K59.01 Acti ve 89095750 Problem Chronic obstructive pulmonary disease, unspecified COPD ty pe J44.9 Active 78661655 Problem Unspecified psychosis not du e to a substance or known physiological condition F29 Active 059574946 ALLERGIES No Information ENCOUNTERS Encounter Location Date Diagnosis [place] [address] [address] Nov, [place] [address] [address] Sep, [place] [address] [address] Sep, [place] [address] [address] Aug, Bronchitis J40 [place] [address] [address] Aug, Sciatica, left side M54.32 a nd Morbid obesity E66.01 [place] [address] [address] Aug, [place] [address] [address] [place] [id number] [place] [address] Aug, Sciatica, left side M54.32 [place] [address] [address] Aug, Neuropathy G62.9 ; Onychomyc osis B35.1 ; Callus of foot L84 and Skin fissures R23.4 [place] [address] [address] [place] [id number] [place] [address] Jul, [place] [address] [place] [id number] [place] [address] Jul, Morbid obesity E66.01 [place] [address] [place] [id number] [place] [address] Jul, Unspecified psychosis not du e to a substance or known physiological condition F29 ; Chronic obstructive pulmonary disease, unspecified COPD type J44.9 and Body mass index (BMI) 40.0-44.9, adult Z68.41 [place] [address] [place] [id number] [place] [address] Jun, [place] [address] [place] [id number] [place] [address] Jun, Morbid obesity E66.01 [place] [address] [place] [id number] [place] [address] May, Morbid obesity E66.01 [place] [address] [place] [id number] [place] [address] May, Encounter for immunization Z 23 [place] [address] [place] [id number] [place] [address] May, Major depressive disorder, r ecurrent episode, moderate F33.1 ; Panic disorder without agoraphobia F41.0 and Morbid obesity E66.01 [place] [address] [place] [id number] [place] [address] May, Major depressive disorder in full remission F32.5 and Panic disorder without agoraphobia F41.0 [place] [address] [address] [place] [id number] [place] [address] Apr, Morbid obesity E66.01 [place] [address] [place] [id number] [place] [address] Apr, Slow transit constipation K5 9.01 and Cellulitis of left lower extremity L03.116 [place] [address] [address] [place] [id number] [place] [address] Apr, Morbid obesity E66.01 [place] [address] [place] [id number] [place] [address] Apr, [place] [address] [place] [id number] [place] [address] Apr, Major depressive disorder, r ecurrent episode, moderate F33.1 and Panic disorder without agoraphobia F41.0 [place] [address] [address] Mar, Viral upper respiratory trac t infection J06.9 [place] [address] [place] [id number] [place] [address] Mar, Bronchitis J40 and Encounter for immunization Z23 [place] [address] [address] Mar, Morbid obesity E66.01 [place] [address] [address] Feb, Major depressive disorder, r ecurrent episode, moderate F33.1 and Panic disorder without agoraphobia F41.0 [place] [address] [address] Feb, Morbid obesity E66.01 [place] [address] [address] 06 Feb, 2019 Onychomycosis B35.1 ; 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 and Xerosis of skin L85.3 [place] [address] [address] 04 Feb, 2019 Major depressive disorder, r ecurrent episode, moderate F33.1 ; Panic disorder without agoraphobia F41.0 and Morbid obesity E66.01 [place] [address] [place] [id number] [place] [address] Jan, Major depressive disorder in full remission F32.5 and Panic disorder without agoraphobia F41.0 [place] [address] [address] Jan, Pneumonia of both lower lobe s due to infectious organism J18.1 and Morbid obesity E66.01 [place] [address] [address] Jan, [facility] [address] [place] [id number] [place] [address] Jan, Major depressive disorder in full remission F32.5 and Panic disorder without agoraphobia F41.0 [place] [address] [facility] [id number] [address] [place] [address] Jan, [place] [address] [place] [id number] [place] [address] Jan, Major depressive disorder, r ecurrent episode, moderate F33.1 ; Panic disorder without agoraphobia F41.0 and Morbid obesity E66.01 [place] [address] [place] [id number] [place] [address] Dec, Bilious vomiting with nausea R11.14 ; Coughing R05 and Choking, subsequent encounter T17.308D [place] [address] [address] Dec, Morbid obesity E66.01 [place] [address] [place] [id number] [place] [address] Dec, Major depressive disorder, r ecurrent episode, moderate F33.1 and Panic disorder without agoraphobia F41.0 [place] [address] [place] [id number] [place] [address] Dec, [place] [address] [place] [id number] [place] [address] Dec, Major depressive disorder, r ecurrent episode, moderate F33.1 [place] [address] [facility] [id number] [address] [place] [address] Nov, Major depressive disorder, r ecurrent episode, moderate F33.1 ; Panic disorder without agoraphobia F41.0 and Morbid obesity E66.01 [facility] [address] [place] [id number] [place] [address] Nov, Morbid obesity E66.01 [place] [address] [address] Nov, Major depressive disorder, r ecurrent episode, moderate F33.1 and Panic disorder without agoraphobia F41.[address] [facility] [place] [address] [address] Nov, Allergic reaction, initial e ncounter T78.40XA and Morbid obesity E66.01 [place] [address] [address] Nov, [place] [address] [address] Nov, Morbid obesity E66.01 ; Swal lowing problem R13.10 and Hypertension, benign I10 [facility] WALK IN [place] [address] [address] Nov, Morbid obesity E66.01 ; COPD exacerbation J44.1 and Non- recurrent acute suppurative otitis media of left ear without spontaneous rupture of tympanic membrane H66.002 [place] [address] [address] Nov, Onychomycosis B35.1 ; Neurop athy G62.9 and Fissure in skin of foot R23.4 [place] [address] [address] October, Major depressive disorder, r ecurrent episode, moderate F33.1 ; Panic disorder without agoraphobia F41.0 and Morbid obesity E66.01 [facility] WALK IN [facility] [address] [address] October, Viral upper respiratory trac t infection J06.9 [place] [address] [address] October, [place] [address] [address] October, Major depressive disorder, r ecurrent episode, moderate F33.1 and Panic disorder without agoraphobia F41.0 [facility] [address] [facility] [id number] [address] [place] [address] October, [facility] [address] [facility] [id number] [address] [place] [address] October, [facility] [address] [facility] [id number] [address] [place] [address] October, [facility] [address] [facility] [id number] [address] [place] [address] October, [facility] [address] [facility] [id number] [address] [place] [address] October, [facility] [address] [facility] [id number] [address] [place] [address] October, [facility] [address] [facility] [id number] [address] [place] [address] October, Major depressive disorder, r ecurrent episode, moderate F33.1 and Panic disorder without agoraphobia F41.0 [facility] [address] [facility] [id number] [address] [place] [address] Sep, Morbid obesity E66.01 and Vane mbar neuritis M54.16 [facility] [address] [facility] [id number] [address] [place] [address] Sep, Panic disorder without agora phobia F41.0 and Major depressive disorder, recurrent episode, moderate F33.1 [facility] [address] [facility] [id number] [address] [place] [address] Sep, Gastroenteritis K52.9 ; Low back pain M54.5 ; Other chronic pain G89.29 and Morbid obesity E66.01 [facility] [address] [facility] [id number] [address] [place] [address] Sep, Major depressive disorder, r ecurrent episode, moderate F33.1 ; Panic disorder without agoraphobia F41.0 and Social phobia F40.10 [place] [address] [address] Sep, Panic disorder without agora phobia F41.0 [place] [address] [address] Sep, Panic disorder without agora phobia F41.0 [place] [address] [address] Aug, Panic disorder without agora phobia F41.0 ; Major depressive disorder, recurrent episode, moderate F33.1 ; Social phobia F40.10 ; Psychotic disorder F29 ; Tardive dyskinesia G24.01 and Morbid obesity E66.01 [place] [address] [address] Aug, Dysthymic disorder F34.1 and Psychotic disorder F29 [place] [address] [address] Aug, Encounter for Medicare annua l wellness exam Z00.00 ; Morbid obesity E66.01 and 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 [address] 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 [place] [address] [address] May, Low back pain M54.5 and Abdoulaye a leg R60.0 [place] [address] [place] [id number] [place] [address] 11 May, 2018 BMI 45.0-49.9, adult Z68.42 ; Well woman exam with routine gynecological exam Z01.419 and Breast cancer screening Z12.31 [place] [address] [place] [id number] [place] [address] Apr, Arthritis M19.90 [place] [address] [place] [id number] [place] [address] 16 Apr, 2018 Arthritis M19.90 and Otalgia of both ears H92.03 [place] [address] [place] [id number] [place] [address] Feb, [place] [address] [address] Feb, Low back pain M54.5 ; Other chronic pain G89.29 ; Exertional asthma J45.990 and Encounter for immunization Z23 [place] [address] [address] Feb, Skin fissures R23.4 ; Neurop athy G62.9 and Onychomycosis B35.1 [place] [address] [address] 05 Feb, 2018 Dysthymic disorder F34.1 [place] [address] [address] Feb, [place] [address] [address] Jan, [place] [address] [address] Jan, Abrasion of right elbow, ini tial encounter S50.311A ; Abrasion, right knee, initial encounter S80.211A and Sprain of other ligament of right ankle, initial encounter S93.491A [place] [address] [address] Jan, 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 [place] [address] [address] 08 Jan, 2018 Bronchitis J40 and Acute sup purative otitis media of left ear without spontaneous rupture of tympanic membrane, recurrence not specified H66.002 [place] [address] [address] Jan, [place] [address] [place] [id number] [place] [address] Jan, Bronchitis J40 and BMI 40.0- 44.9, adult Z68.41 [place] [address] [place] [id number] [place] [address] Jan, [place] [address] [place] [id number] [place] [address] Dec, Gastric pain R10.9 [place] [address] [place] [id number] [place] [address] Dec, [place] [address] [place] [id number] [place] [address] Dec, History of illicit drug use Z87.898 ; Neuropathy G62.9 ; COPD (chronic obstructive pulmonary disease) with chronic bronchitis J44.9 and Acute pain of right knee M25.561 [place] [id number] [place] [address] Nov, [place] [address] [address] Nov, Onychomycosis B35.1 and Cont usion of left foot, subsequent encounter S90.32XD [place] [address] [place] [id number] [place] [address] Nov, COPD exacerbation J44.1 [place] [address] [place] [id number] [place] [address] Sep, [place] [address] [place] [id number] [place] [address] Sep, Dysthymic disorder F34.1 ; T obacco abuse Z72.0 ; Pain in right knee M25.561 ; Pain in left knee M25.562 ; Other chronic pain G89.29 and BMI 40.0- 44.9, adult Z68.41 [place] [address] [address] Aug, Major depressive disorder, r ecurrent episode, moderate F33.1 and Social phobia F40.10 [place] [address] [address] 14 Aug, 2017 Dysthymic disorder F34.1 ; N on-pressure chronic ulcer of left thigh, unspecified ulcer stage L97.129 ; Tobacco abuse Z72.0 ; Mild chronic obstructive pulmonary disease J44.9 and Forgetfulness R68.89 [place] [address] [address] 09 Aug, 2017 Onychomycosis B35.1 ; Fissur e in skin of foot R23.4 and Foot callus L[address] [facility]note 3] N [address] [address] Jul, Right medial knee pain M25.5 61 ; Upper respiratory tract infection, unspecified type J06.9 and BMI 40.0-44.9, adult Z68.41 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 [id number] [address] [place] [address] Aug, [facility] [address] [id number] [address] [place] [address] Aug, [facility] [address] [id number] [address] [place] [address] Jul, [facility] [address] [facility] [id number] [address] [place] [address] Jul, [facility] [address] [facility] [id number] [address] [place] [address] Jul, Decubitus ulcer of left thig h, stage 2 L89.892 [facility] [address] [facility] [id number] [address] [place] [address] 17 Jul, 2016 Decubitus ulcer of left thig h, stage 2 L89.892 [facility] [address] [facility] [id number] [address] [place] [address] 17 Jul, 2016 [facility] [address] [facility] [id number] [address] [place] [address] 15 Jul, 2016 Decubitus ulcer of left thig h, stage 2 L89.892 [facility] [address] [facility] [id number] [address] [place] [address] 14 Jul, 2016 [facility] [address] [facility] [id number] [address] [place] [address] 13 Jul, 2016 Cellulitis of other specifie d site L03.818 ; Illicit drug use F19.90 and Decubitus ulcer of left thigh, stage 2 L89.892 [facility] [address] [facility] [id number] [address] [place] [address] 08 Jul, 2016 [facility] [address] [place] [id number] [place] [address] Jul, Cellulitis of right breast N 61.0 [facility] [address] [facility] [id number] [address] [place] [address] Jun, [facility] [address] [address] Jun, [place] [address] [place] [id number] [place] [address] Jun, Wheezing R06.2 and Arthralgi a, unspecified joint M25.50 [place] [address] [place] [id number] [place] [address] May, [place] [address] [address] May, [facility] [address] [place] [id number] [place] [address] May, [place] [address] [address] 05 May, 2016 Shortness of breath R06.02 [place] [address] [place] [id number] [place] [address] May, Onychomycosis B35.1 and Fiss ure in skin of foot R23.4 [facility] [address] [place] [id number] [place] [address] Apr, [facility] [address] [address] 18 Apr, 2016 Dizziness R42 [place] [address] [place] [id number] [place] [address] 14 Apr, 2016 Shortness of breath R06.02 ; Essential hypertension I10 ; Dizziness R42 and On home oxygen therapy Z99.81 [facility] [address] [id number] [address] [place] [address] Apr, [facility] [address] [id number] [address] [place] [phone] Apr, [facility] [address] [id number] [address] [place] [phone] Apr, [facility] [address] [id number] [address] [place] [phone] Apr, [facility] [address] [id number] [address] [place] [phone] Apr, [facility] [address] [id number] [address] [place] [phone] Apr, [facility] [address] [id number] [address] [place] [phone] Apr, [facility] [address] [id number] [address] [place] [phone] Mar, Mild chronic obstructive pul monary disease J44.9 [facility] [address] [id number] [address] [place] [phone] Mar, [facility] [address] [id number] [address] [place] [phone] Mar, Epigastric pain R10.13 ; Low back pain M54.5 ; Other chronic pain G89.29 and Breast cancer screening Z12.39 [facility] [address] [id number] [address] [place] [phone] Mar, [facility] [address] [id number] [address] [place] [phone] Mar, [facility] [address] [id number] [address] [place] [phone] Feb, [facility] [address] [id number] [address] [place] [phone] Feb, [facility] [facility] [address] [id number] [address] [place] [address] Feb, Fissure in skin of foot R23. 4 and Onychomycosis B35.1 [place] [address] [address] [place] [id number] [address] [place] [address] Jan, Agoraphobia F40.00 [place] [address] [address] [facility] [id number] [address] [place] [address] Dec, Agoraphobia F40.00 [place] [address] [address] [facility] [id number] [address] [place] [address] Dec, Mild persistent asthma witho ut complication J45.30 ; Dysthymic disorder F34.1 and Upper respiratory tract infection, unspecified type J06.9 [place] [address] [address] [facility] [id number] [address] [place] [address] Nov, Agoraphobia F40.00 [place] [address] [place] [id number] [address] [place] [address] October, Agoraphobia F40.00 [place] [address] [place] [id number] [address] [place] [address] Sep, Panic disorder without agora phobia F41.0 ; Agoraphobia F40.00 and Dysthymic disorder F34.1 [place] [address] [address] [place] [id number] [address] [place] [address] Sep, Panic attacks F41.0 [place] [address] [address] [facility] [id number] [address] [place] [address] Sep, [place] [address] [address] [facility] [id number] [address] [place] [address] Sep, Panic disorder without agora phobia F41.0 ; Varicose veins of both lower extremities I83.93 and Fatigue R53.83 [place] [address] [address] [facility] [id number] [address] [place] [address] 14 Sep, 2015 Fatigue R53.83 [place] [address] [place] [id number] [address] [place] [address] Sep, [facility] [address] [place] [id number] [address] [place] [address] Aug, [facility] [address] [place] [id number] [address] [place] [address] Aug, [facility] [address] [address] Aug, Type 2 diabetes mellitus wit h diabetic neuropathic arthropathy E11.610 [place] [address] [place] [id number] [address] [place] [address] Aug, Panic disorder without agora phobia F41.0 ; Agoraphobia F40.00 and Dysthymic disorder F34.1 [place] [address] [address] Aug, Shortness of breath R06.02 ; Panic attacks F41.0 ; COPD (chronic obstructive pulmonary disease) J44.9 ; Tobacco abuse Z72.0 ; Family history of diabetes mellitus Z83.3 and Weight gain R63.5 [place] [address] [address] Aug, [place] [address] [place] [id number] [address] [place] [address] Jul, [place] [address] [address] Jun, Onychomycosis B35.1 ; Neurop athy G62.9 and Impaired circulation I99.9 [place] [address] [place] [id number] [address] [place] [address] 09 Mar, 2015 Fissure in skin of foot R23. 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 [place] [id number] [place] [address] 18 Feb, 2015 Family history of coronary a rteriosclerosis V17.3 [facility] [address] [id number] [address] [place] [address] 15 Feb, 2015 Allergic rhinitis due to darien agnieszka 477.0 ; Unspecified breast screening V76.10 ; Anxiety 300.00 and Family history of coronary arteriosclerosis V17.3 [facility] [address] [id number] [address] [place] [address] Jan, [facility] [address] [id number] [address] [place] [address] Dec, [facility] [address] [id number] [address] [place] [address] Dec, Onychomycosis 110.1 and Skin fissures 709.8 [facility] [address] [id number] [address] [place] [address] Sep, [facility] [address] [id number] [address] [place] [address] Sep, [facility] [address] [id number] [address] [place] [address] Aug, [facility] [address] [id number] [address] [place] [address] Aug, [facility] [address] [id number] [address] [place] [address] Jul, [facility] [address] [id number] [address] [place] [address] Jul, [facility] [address] [id number] [address] [place] [address] Jun, [facility] [address] [id number] [address] [place] [address] Jun, [facility] [address] [id number] [address] [place] [address] Jun, [facility] [address] [facility] [id number] [address] [place] [address] Jun, [facility] [address] [id number] [address] [place] [address], [place] [address] Jun, [facility] [address] [id number] [address] [place] [address], [place] [address] May, [facility] [address] [id number] [address] [place] [address], [place] [address] May, [facility] [address] [id number] [address] [place] [address], [place] [address] May, [facility] [address] [id number] [address] [place] [address], [place] [address] May, [facility] [address] [id number] [address] [place] [address], [place] [address] May, [facility] [address] [id number] [address] [place] [address], [place] [address] May, [facility] [address] [id number] [address] [place] [address], [place] [address] May, [facility] [address] [id number] [address] [place] [address], [place] [address] May, [facility] [address] [id number] [address] [place] [address], [place] [address] Apr, [facility] [address] [id number] [address] [place] [address], [place] [address] Apr, [facility] [address] [id number] [address] [place] [address], [place] [address] Apr, [facility] [address] [id number] [address] [place] [address], [place] [address] Apr, [facility] [address] [id number] [address] [place] [address], [place] [address] Apr, [facility] [address] [id number] [address] [place] [address], [place] [address] Apr, [facility] [address] [id number] [address] [place] [address] 07 Apr, 2014 [facility] [address] [id number] [address] [place] [address], [place] [address] Apr, [facility] [address] [id number] [address] [place] [address] Apr, [facility] [address] [id number] [address] [place] [address], [place] [address] Apr, [facility] [address] [id number] [address] [place] [address], [place] [address] Mar, [facility] [address] [id number] [address] [place] [address], [place] [address] Mar, [facility] [address] [id number] [address] [place] [address], [place] [address] Mar, [facility] [address] [id number] [address] [place] [address] Mar, [facility] [address] [id number] [address] [place] [address], [place] [address] Mar, [facility] [address] [id number] [address] [place] [address], [place] [address] Mar, [facility] [address] [id number] [address] [place] [address] Mar, [facility] [address] [id number] [address] [place] [address], [place] [address] Mar, [facility] [address] [id number] [address] [place] [address] Mar, [facility] [address] [id number] [address] [place] [address], [place] [address] Mar, [facility] [address] [id number] [address] [place] [address], [place] [address] Mar, [facility] [address] [id number] [address] [place] [address], [place] [address] Mar, [facility] [address] [id number] [address] [place] [address], [place] [address] 22 Mar, 2013 [facility] [address] [id number] [address] [place] [address], [place] [address] 22 Mar, 2013 [facility] [address] [id number] [address] [place] [address], [place] [address] 22 Mar, 2013 [facility] [address] [id number] [address] [place] [address], [place] [address] 20 Mar, 2013 [facility] [address] [id number] [address] [place] [address], [place] [address] 20 Mar, 2013 [facility] [address] [id number] [address] [place] [address], [place] [address] 16 Mar, 2013 [facility] [address] [id number] [address] [place] [address], [place] [address] 16 Mar, 2014 [facility] [address] [id number] [address] [place] [address], [place] [address] 15 Mar, 2013 [facility] [address] [id number] [address] [place] [address], [place] [address] 14 Mar, 2014 [facility] [address] [id number] [address] [place] [address], [place] [address] 14 Mar, 2013 [facility] [address] [id number] [address] [place] [address], [place] [address] 14 Mar, 2014 [facility] [address] [id number] [address] [place] [address], [place] [address] 14 Mar, 2013 [facility] [address] [id number] [address] [place] [address], [place] [address] 09 Mar, 2014 [facility] [address] [id number] [address] [place] [address], [place] [address] 09 Mar, 2013 [facility] [address] [id number] [address] [place] [address], [place] [address] 09 Mar, 2014 [facility] [address] [id number] [address] [place] [address] [address] Mar, [facility] [address] [id number] [address] [place] [address], [place] [address] 30 Feb, 2013 [facility] [address] [id number] [address] [place] [address], [place] [address] 30 Feb, 2013 [facility] [address] [id number] [address] [place] [address], [place] [address] 30 Feb, 2013 [facility] [address] [id number] [address] [place] [address], [place] [address] 30 Feb, 2013 [facility] [address] [id number] [address] [place] [address], [place] [address] Feb, 2013 [facility] [address] [id number] [address] [place] [address], [place] [address] Feb, 2013 [facility] [address] [id number] [address] [place] [address], [place] [address] Feb, 2013 [facility] [address] [id number] [address] [place] [address], [place] [address] Feb, 2013 [facility] [address] [id number] [address] [place] [address], [place] [address] Feb, 2013 [facility] [address] [id number] [address] [place] [address], [place] [address] Feb, 2013 [facility] [address] [id number] [address] [place] [address], [place] [address] Feb, 2013 [facility] [address] [id number] [address] [place] [address], [place] [address] Feb, 2013 [facility] [address] [id number] [address] [place] [address], [place] [address] Jan, [facility] [address] [id number] [address] [place] [address], [place] [address] Jan, [facility] [address] [id number] [address] [place] [address], [place] [address] Jan, [facility] [address] [id number] [facility] [place] [address] Jan, [facility] [address] [id number] [address] [place] [address], [place] [address] Jan, [facility] [address] [id number] [address] [place] [address], [place] [address] Jan, [facility] [address] [id number] [address] [place] [address], [place] [address] Jan, [facility] [address] [id number] [address] [place] [address], [place] [address] Jan, [facility] [address] [id number] [address] [place] [address], [place] [address] Jan, [facility] [address] [id number] [address] [place] [address], [place] [address] Jan, [facility] [address] [id number] [address] [place] [address], [place] [address] Jan, [facility] [address] [id number] [address] [place] [address], [place] [address] Jan, [facility] [address] [id number] [address] [place] [address], [place] [address] Jan, [facility] [address] [id number] [address] [place] [address], [place] [address] Dec, [facility] [address] [id number] [address] [place] [address], [place] [address] Dec, [facility] [address] [id number] [address] [place] [address], [place] [address] Dec, [facility] [address] [id number] [address] [place] [address], [place] [address] Dec, [facility] [address] [id number] [address] [place] [address], [place] [address] Dec, [facility] [address] [id number] [address] [place] [address], [place] [address] Dec, [facility] [address] [id number] [facility] [place] [address] Dec, [facility] [address] [id number] [address] [place] [address], [place] [address] Dec, [facility] [address] [id number] [address] [place] [address], [place] [address] Dec, [facility] [address] [id number] [address] [place] [address], [place] [address] Dec, [facility] [address] [id number] [address] [place] [address], [place] [address] Dec, [facility] [address] [id number] [address] [place] [address], [place] [address] Dec, [facility] [address] [id number] [address] [place] [address], [place] [address] Dec, [facility] [address] [id number] [address] [place] [address], [place] [address] Dec, [facility] [address] [id number] [address] [place] [address], [place] [address] Dec, [facility] [address] [id number] [address] [place] [address], [place] [address] Dec, [facility] [address] [id number] [address] [place] [address], [place] [address] Dec, [facility] [address] [id number] [address] [place] [address], [place] [address] Dec, [facility] [address] [id number] [address] [place] [address], [place] [address] Nov, [facility] [address] [id number] [address] [place] [address], [place] [address] Nov, [facility] [address] [id number] [address] [place] [address], [place] [address] Nov, [facility] [address] [id number] [address] [place] [address], [place] [address] Nov, [facility] [address] [id number] [facility] [place] [address] Nov, [facility] [address] [id number] [address] [place] [address], [place] [address] Nov, [facility] [address] [id number] [address] [place] [address], [place] [address] Nov, [facility] [address] [id number] [address] [place] [address], [place] [address] Nov, [facility] [address] [id number] [address] [place] [address], [place] [address] Nov, [facility] [address] [id number] [address] [place] [address], [place] [address] Nov, [facility] [address] [id number] [address] [place] [address], [place] [address] Nov, [facility] [address] [id number] [address] [place] [address], [place] [address] Nov, [facility] [address] [id number] [address] [place] [address], [place] [address] Nov, [facility] [address] [id number] [address] [place] [address], [place] [address] Nov, [facility] [address] [id number] [address] [place] [address], [place] [address] Nov, [facility] [address] [id number] [address] [place] [address], [place] [address] Nov, [facility] [address] [id number] [address] [place] [address], [place] [address] Nov, [facility] [address] [id number] [address] [place] [address], [place] [address] Nov, [facility] [address] [id number] [address] [place] [address], [place] [address] Nov, [facility] [address] [id number] [address] [place] [address], [place] [address] Nov, [facility] [address] [id number] [address] [place] [address], [place] [address] October, [facility] [address] [id number] [address] [place] [address], [place] [address] October, [facility] [address] [id number] [address] [place] [address], [place] [address] October, [facility] [address] [id number] [address] [place] [address], [place] [address] October, [facility] [address] [id number] [address] [place] [address], [place] [address] Sep, [facility] [address] [id number] [address] [place] [address], [place] [address] Sep, [facility] [address] [id number] [address] [place] [address], [place] [address] Sep, [facility] [address] [id number] [address] [place] [address], [place] [address] Sep, [facility] [address] [id number] [address] [place] [address], [place] [address] Sep, [facility] [address] [id number] [address] [place] [address], [place] [address] Sep, [facility] [address] [id number] [address] [place] [address], [place] [address] Sep, [facility] [address] [id number] [address] [place] [address], [place] [address] Sep, [facility] [address] [id number] [address] [place] [address], [place] [address] Sep, [facility] [address] [id number] [address] [place] [address], [place] [address] Aug, [facility] [address] [id number] [address] [place] [address], [place] [address] Aug, [facility] [address] [id number] [facility] [place] [address] Aug, [facility] [address] [id number] [address] [place] [address], [place] [address] Aug, [facility] [address] [id number] [address] [place] [address], [place] [address] Aug, [facility] [address] [id number] [address] [place] [address], [place] [address] Aug, [facility] [address] [id number] [address] [place] [address], [place] [address] Aug, [facility] [address] [id number] [address] [place] [address], [place] [address] Aug, [facility] [address] [id number] [address] [place] [address], [place] [address] Jul, [facility] [address] [id number] [address] [place] [address], [place] [address] Jul, [facility] [address] [id number] [address] [place] [address], [place] [address] Jun, [facility] [address] [id number] [address] [place] [address], [place] [address] Jun, [facility] [address] [id number] [address] [place] [address], [place] [address] Jun, [facility] [address] [id number] [address] [place] [address], [place] [address] Jun, [facility] [address] [id number] [address] [place] [address], [place] [address] Jun, [facility] [address] [id number] [address] [place] [address], [place] [address] Jun, [facility] [address] [id number] [address] [place] [address], [place] [address] Jun, [facility] [address] [id number] [address] [place] [address], [place] [address] 15 Jun, 2013 [facility] [address] [id number] [address] [place] [address], [place] [address] 15 Jun, 2013 [facility] [address] [id number] [address] [place] [address], [place] [address] 14 Jun, 2013 [facility] [address] [id number] [address] [place] [address], [place] [address] 02 Jun, 2013 [facility] [address] [id number] [address] [place] [address], [place] [address] 02 Jun, 2013 [facility] [address] [id number] [address] [place] [address], [place] [address] 31 May, 2013 [facility] [address] [id number] [address] [place] [address], [place] [address] 31 May, 2013 [facility] [address] [id number] [address] [place] [address], [place] [address] 31 May, 2013 [facility] [address] [id number] [address] [place] [address], [place] [address] 31 May, 2013 [facility] [address] [id number] [address] [place] [address], [place] [address] 31 May, 2013 [facility] [address] [id number] [address] [place] [address], [place] [address] 31 May, 2013 [facility] [address] [id number] [address] [place] [address], [place] [address] 26 May, 2013 [facility] [address] [id number] [address] [place] [address], [place] [address] 23 May, 2013 [facility] [address] [id number] [address] [place] [address], [place] [address] 23 May, 2013 [facility] [address] [id number] [address] [place] [address], [place] [address] 16 May, 2013 [facility] [address] [id number] [address] [place] [address], [place] [address] 16 May, 2013 [facility] [address] [id number] [address] [place] [address], [place] [address] May, [facility] [address] [id number] [address] [place] [address], [place] [address] May, [facility] [address] [id number] [address] [place] [address], [place] [address] Apr, [facility] [address] [id number] [address] [place] [address], [place] [address] Apr, [facility] [address] [id number] [address] [place] [address], [place] [address] Mar, [facility] [address] [id number] [address] [place] [address], [place] [address] Mar, [facility] [facility] [address] [id number] [address] [place] [address], [place] [address] Feb, [facility] [address] [id number] [address] [place] [address], [place] [address] Feb, [facility] [address] [id number] [address] [place] [address], [place] [address] Feb, [facility] [address] [id number] [address] [place] [address], [place] [address] Feb, [facility] [address] [id number] [address] [place] [address], [place] [address] Jan, [facility] [address] [id number] [address] [place] [address], [place] [address] Jan, [facility] [address] [id number] [address] [place] [address], [place] [address] Jan, [facility] [address] [id number] [address] [place] [address], [place] [address] Jan, [facility] [address] [id number] [address] [place] [address], [place] [address] Jan, [facility] [address] [id number] [address] [place] [address], [place] [address] Jan, [facility] [address] [id number] [address] [place] [address], [place] [address] Dec, [facility] [address] [id number] [address] [place] [address], [place] [address] Dec, [facility] [address] [id number] [address] [place] [address], [place] [address] Dec, [facility] [address] [id number] [address] [place] [address], [place] [address] Dec, [facility] [address] [id number] [address] [place] [address], [place] [address] Nov, [facility] [address] [id number] [address] [place] [address], [place] [address] October, [facility] [address] [id number] [address] [place] [address], [place] [address] October, [facility] [address] [id number] [address] [place] [address], [place] [address] October, [facility] [address] [id number] [address] [place] [address], [place] [address] Sep, [facility] [address] [id number] [address] [place] [address], [place] [address] Sep, [facility] [address] [id number] [address] [place] [address], [place] [address] Jun, [facility] [address] [id number] [address] [place] [address], [place] [address] Jun, [facility] [address] [id number] [address] [place] [address], [place] [address] Jun, [facility] [address] [id number] [address] [place] [address], [place] [address] Apr, [facility] [address] [id number] [address] [place] [address], [place] [address] Apr, [facility] [address] [id number] [address] [place] [address], [place] [address] Apr, [facility] [address] [id number] [address] [place] [address], [place] [address] Apr, [facility] [address] [id number] [address] [place] [address], [place] [address] Mar, [facility] [address] [id number] [address] [place] [address], [place] [address] Mar, [facility] [address] [id number] [address] [place] [address], [place] [address] Mar, [facility] [address] [id number] [address] [place] [address], [place] [address] Mar, [facility] [address] [id number] [address] [place] [address], [place] [address] Feb, [facility] [address] [id number] [address] [place] [address], [place] [address] Feb, [facility] [address] [id number] [address] [place] [address], [place] [address] Feb, [facility] [address] [id number] [address] [place] [address], [place] [address] Jan, [facility] [address] [id number] [address] [place] [address], [place] [address] Jan, [facility] [address] [id number] [address] [place] [address], [place] [address] Jan, [facility] [address] [id number] [address] [place] [address], [place] [address] Jan, [facility] [address] [id number] [address] [place] [address], [place] [address] Dec, [facility] [address] [id number] [address] [place] [address], [place] [address] Dec, [facility] [address] [id number] [address] [place] [address], [place] [address] Nov, [facility] [address] [id number] [address] [place] [address], [place] [address] Nov, [facility] [address] [id number] [address] [place] [address], [place] [address] October, [facility] [address] [id number] [address] [place] [address], [place] [address] October, [facility] [address] [id number] [address] [place] [address], [place] [address] October, [facility] [address] [id number] [address] [place] [address], [place] [address] Sep, [facility] [address] [id number] [address] [place] [address], [place] [address] Sep, [facility] [address] [id number] [address] [place] [address], [place] [address] Sep, [facility] [address] [id number] [address] [place] [address], [place] [address] Aug, [facility] [address] [id number] [address] [place] [address], [place] [address] Aug, [facility] [address] [id number] [address] [place] [address], [place] [address] Aug, [facility] [address] [id number] [address] [place] [address], [place] [address] Aug, [facility] [address] [id number] [address] [place] [address], [place] [address] 07 Aug, 2011 [facility] [address] [id number] [address] [place] [address], [place] [address] 23 Jul, 2011 [facility] [address] [id number] [address] [place] [address], [place] [address] 16 Jul, 2011 [facility] [address] [id number] [address] [place] [address], [place] [address] 13 Jul, 2011 [facility] [address] [id number] [address] [place] [address] [place] [address] 09 Jul, 2011 [facility] [address] [id number] [address] [place] [address], [place] [address] Jul, [facility] [address] [id number] [address] [place] [address], [place] [address] 06 Jul, 2011 [facility] [address] [id number] [address] [place] [address], [place] [address] Jul, [facility] [address] [id number] [address] [place] [address], [place] [address] Jul, [facility] [address] [id number] [address] [place] [address], [place] [address] Jun, [facility] [address] [id number] [address] [place] [address], [place] [address] Jun, [facility] [address] [id number] [address] [place] [address], [place] [address] May, [facility] [address] [id number] [address] [place] [address], [place] [address] May, [facility] [address] [id number] [address] [place] [address], [place] [address] May, [facility] [address] [id number] [address] [place] [address], [place] [address] May, [facility] [address] [id number] [address] [place] [address], [place] [address] Apr, [facility] [address] [id number] [address] [place] [address], [place] [address] Apr, [facility] [address] [id number] [address] [place] [address], [place] [address] Apr, [facility] [address] [id number] [address] [place] [address], [place] [address] Mar, [facility] [address] [id number] [address] [place] [address], [place] [address] Mar, [facility] [address] [id number] [address] [place] [address], [place] [address] 18 Mar, 2011 [facility] [address] [id number] [address] [place] [address], [place] [address] 2011 [facility] [address] [id number] [address] [place] [address], [place] [address] Dec, [facility] [address] [id number] [address] [place] [address], [place] [address] October, [facility] [address] [id number] [address] [place] [address], [place] [address] May, [facility] [address] [id number] [address] [place] [address], [place] [address] 13 May, 2010 [facility] [address] [id number] [address] [place] [address], [place] [address] 13 May, 2010 [facility] [address] [id number] [address] [place] [address], [place] [address] 06 May, 2010 [facility] [address] [id number] [address] [place] [address], [place] [address] Mar, [facility] [address] [id number] [address] [place] [address], [place] [address] Mar, [facility] [address] [id number] [address] [place] [address], [place] [address] 31 May, 2009 [facility] [address] [id number] [address] [place] [id number] 30 May, 2009 [facility] [address] [id number] [address] [place] [address], [place] [address] 08 May, 2009 [facility] [address] [id number] [address] [place] [address], [place] [address] 08 May, 2009 [facility] [address] [id number] [address] [place] [address], [place] [address] Apr, [facility] [address] [id number] [address] [place] [address] Apr, [facility] [address] [facility] [id number] [address] [address] October, IMMUNIZATIONS No Known Immunizations SOCIAL HISTORY [...]
--- OUTSIDE RECORDS SUMMARY | 2020-01-13 11:50 | XMS REPORT ---
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 Name Role Phone RASHEED RAHMAN Unavailable PROBLEMS Type Condition ICD9-CM Code TDW25-CE Code Onset Dates Condition S tatus SNOMED Code Problem History of illicit drug use Z87.898 Ac tive 838143857 Problem Snoring R06.83 Active 95038423 Problem Impaired circulation I99.9 Active 47303657 Problem MRSA (methicillin resistant staph aureus) culture positive Z22.322 Active 283188505 Problem Panic disorder without agoraphobia F41.0 Active 69397647 Problem Dysthymic disorder F34.1 Active 7 9397240 Problem Mood disorder F39 Active 788102 05 Problem Arthritis M19.90 Active 0777369 Problem Mild chronic obstructive pulmonary disease J44.9 Active 020949285 Problem Mild persistent asthma without complication J45.30 Active 104906342 Problem Essential hypertension I10 Active 87707710 Problem On home oxygen therapy Z99.81 Active 692324805205 Problem Social phobia F40.10 Active 322076 02 Problem Neuropathy G62.9 Active 994935959 Problem 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 Active 855316843 Problem Major depressive disorder, recurrent episode, moderate F33.1 Active 012145838 Problem Psychotic disorder F29 Active 6 7382716 Problem Hypertension, benign I10 Active 49491625 Problem Onychomycosis B35.1 Active 424718 008 Problem Body mass index (BMI) 40.0-44.9, adult Z68.41 Active 971031970 Problem Varicose veins of both lower extremities I83.93 Active 55166353 Problem Sciatica, left side M54.32 Active 15271350 Problem Agoraphobia F40.00 Active 60675370 Problem Fatigue R53.83 Active 53546455 Problem Major depressive disorder in full remission F32.5 Active 53169952 Problem Slow transit constipation K59.01 Acti ve 07570573 Problem Chronic obstructive pulmonary disease, unspecified COPD ty pe J44.9 Active 19309706 Problem Unspecified psychosis not du e to a substance or known physiological condition F29 Active 379079225 ALLERGIES No Information ENCOUNTERS Encounter Location Date Diagnosis [place] [address] [address] Nov, [place] [address] [address] Sep, [place] [address] [address] Sep, [place] [address] [address] Aug, Bronchitis J40 [place] [address] [address] Aug, Sciatica, left side M54.32 a nd Morbid obesity E66.01 [place] [address] [address] Aug, [place] [address] [place] [id number] [place] [address] Aug, Sciatica, left side M54.32 [place] [address] [address] Aug, Neuropathy G62.9 ; Onychomyc osis B35.1 ; Callus of foot L84 and Skin fissures R23.4 [place] [address] [place] [id number] [place] [address] Jul, [place] [address] [place] [id number] [place] [address] Jul, Morbid obesity E66.01 [place] [address] [place] [id number] [place] [address] Jul, Unspecified psychosis not du e to a substance or known physiological condition F29 ; Chronic obstructive pulmonary disease, unspecified COPD type J44.9 and Body mass index (BMI) 40.0-44.9, adult Z68.41 [place] [address] [place] [id number] [place] [address] Jun, [place] [address] [place] [id number] [place] [address] Jun, Morbid obesity E66.01 [place] [address] [place] [id number] [place] [address] May, Morbid obesity E66.01 [place] [address] [place] [id number] [place] [address] May, Encounter for immunization Z 23 [place] [address] [place] [id number] [place] [address] May, Major depressive disorder, r ecurrent episode, moderate F33.1 ; Panic disorder without agoraphobia F41.0 and Morbid obesity E66.01 [place] [address] [place] [id number] [place] [address] May, Major depressive disorder in full remission F32.5 and Panic disorder without agoraphobia F41.0 [place] [address] [place] [id number] [place] [address] Apr, Morbid obesity E66.01 [place] [address] [place] [id number] [place] [address] Apr, Slow transit constipation K5 9.01 and Cellulitis of left lower extremity L03.116 [place] [address] [place] [id number] [place] [address] Apr, Morbid obesity E66.01 [place] [address] [place] [id number] [place] [address] Apr, [place] [address] [place] [id number] [place] [address] Apr, Major depressive disorder, r ecurrent episode, moderate F33.1 and Panic disorder without agoraphobia F41.0 [place] [address] [address] Mar, Viral upper respiratory trac t infection J06.9 [place] [address] [place] [id number] [place] [address] Mar, Bronchitis J40 and Encounter for immunization Z23 [place] [address] [address] Mar, Morbid obesity E66.01 [place] [address] [address] Feb, Major depressive disorder, r ecurrent episode, moderate F33.1 and Panic disorder without agoraphobia F41.0 [place] [address] [address] Feb, Morbid obesity E66.01 [place] [address] [address] 06 Feb, 2019 Onychomycosis B35.1 ; 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 and Xerosis of skin L85.3 [place] [address] [address] 04 Feb, 2019 Major depressive disorder, r ecurrent episode, moderate F33.1 ; Panic disorder without agoraphobia F41.0 and Morbid obesity E66.01 [place] [address] [place] [id number] [place] [address] Jan, Major depressive disorder in full remission F32.5 and Panic disorder without agoraphobia F41.0 [place] [address] [address] Jan, Pneumonia of both lower lobe s due to infectious organism J18.1 and Morbid obesity E66.01 [place] [address] [address] Jan, [facility] [place] [address] [place] [id number] [place] [address] Jan, Major depressive disorder in full remission F32.5 and Panic disorder without agoraphobia F41.0 [place] [address] [facility] [id number] [address] [place] [address] Jan, [place] [address] [place] [id number] [place] [address] Jan, Major depressive disorder, r ecurrent episode, moderate F33.1 ; Panic disorder without agoraphobia F41.0 and Morbid obesity E66.01 [place] [address] [place] [id number] [place] [address] Dec, Bilious vomiting with nausea R11.14 ; Coughing R05 and Choking, subsequent encounter T17.308D [place] [address] [address] Dec, Morbid obesity E66.01 [place] [address] [place] [id number] [place] [address] Dec, Major depressive disorder, r ecurrent episode, moderate F33.1 and Panic disorder without agoraphobia F41.0 [place] [address] [place] [id number] [place] [address] Dec, [place] [address] [place] [id number] [place] [address] Dec, Major depressive disorder, r ecurrent episode, moderate F33.1 [place] [address] [facility] [id number] [address] [place] [address] Nov, Major depressive disorder, r ecurrent episode, moderate F33.1 ; Panic disorder without agoraphobia F41.0 and Morbid obesity E66.01 [facility], [place] [address] [place] [id number] [place] [address] Nov, Morbid obesity E66.01 [place] [address] [address] Nov, Major depressive disorder, r ecurrent episode, moderate F33.1 and Panic disorder without agoraphobia F41.0 [facility] [place] [address] [address] Nov, Allergic reaction, initial e ncounter T78.40XA and Morbid obesity E66.01 [place] [address] [address] Nov, [place] [address] [address] Nov, Morbid obesity E66.01 ; Swal lowing problem R13.10 and Hypertension, benign I10 [facility] IN [place] [address] [address] Nov, Morbid obesity E66.01 ; COPD exacerbation J44.1 and Non- recurrent acute suppurative otitis media of left ear without spontaneous rupture of tympanic membrane H66.002 [place] [address] [address] Nov, Onychomycosis B35.1 ; Neurop athy G62.9 and Fissure in skin of foot R23.4 [place] [address] [address] October, Major depressive disorder, r ecurrent episode, moderate F33.1 ; Panic disorder without agoraphobia F41.0 and Morbid obesity E66.01 [facility] W[facility] IN [facility] [address] [address] October, Viral upper respiratory trac t infection J06.9 [place] [address] [address] October, [place] [address] [address] October, Major depressive disorder, r ecurrent episode, moderate F33.1 and Panic disorder without agoraphobia F41.0 [facility], [place] [address] [facility] [id number] [address] [place] [address] October, [facility] [place] [address] [facility] [id number] [address] [place] [address] October, [facility] [place] [address] [facility] [id number] [address] [place] [address] October, [facility] [place] [address] [facility] [id number] [address] [place] [address] October, [facility] [place] [address] [facility] [id number] [address] [place] [address] October, [facility] [place] [address] [facility] [id number] [address] [place] [address] October, [facility] [place] [address] [facility] [id number] [address] [place] [address] October, Major depressive disorder, r ecurrent episode, moderate F33.1 and Panic disorder without agoraphobia F41.0 [facility] [place] [address] [facility] [id number] [address] [place] [address] Sep, Morbid obesity E66.01 and Vane mbar neuritis M54.16 [facility] [place] [address] [facility] [id number] [address] [place] [address] Sep, Panic disorder without agora phobia F41.0 and Major depressive disorder, recurrent episode, moderate F33.1 [facility] [address] [facility] [id number] [address] [place] [address] Sep, Gastroenteritis K52.9 ; Low back pain M54.5 ; Other chronic pain G89.29 and Morbid obesity E66.01 [facility] [place] [address] [facility] [id number] [address] [place] [address] Sep, Major depressive disorder, r ecurrent episode, moderate F33.1 ; Panic disorder without agoraphobia F41.0 and Social phobia F40.10 [place] [address] [address] Sep, Panic disorder without agora phobia F41.0 [place] [address] [address] Sep, Panic disorder without agora phobia F41.0 [place] [address] [address] Aug, Panic disorder without agora phobia F41.0 ; Major depressive disorder, recurrent episode, moderate F33.1 ; Social phobia F40.10 ; Psychotic disorder F29 ; Tardive dyskinesia G24.01 and Morbid obesity E66.01 [place] [address] [address] Aug, Dysthymic disorder F34.1 and Psychotic disorder F29 [place] [address] [address] Aug, Encounter for Medicare annua l wellness exam Z00.00 ; Morbid obesity E66.01 and 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 [place] [address] [address] Aug, Dysthymic disorder F34.1 and Psychotic disorder F29 [place] [address] [address] Aug, Neuropathy G62.9 ; Onychomyc osis B35.1 and Xerosis of skin L85.3 [place] [address] [address] Jul, [place] [address] [address] Jul, Mood disorder F39 ; Wheezing R06.2 ; Choking, initial encounter T17.308A and Coughing R05 [place] [address] [address] Jul, Low back pain M54.5 [facility] [address] [facility] [id number] [address] [place] [address] Jun, Flu-like symptoms R68.89 ; B OK 45.0-49.9, adult Z68.42 ; COPD exacerbation J44.1 and Acute bronchitis J20.9 [facility], [place] [address] [place] [id number] [place] [address] Jun, [facility], [place] [address] [place] [id number] [place] [address] May, [place] [address] [address] May, Onychomycosis B35.1 and 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 [place] [address] [address] May, Low back pain M54.5 and Abdoulaye a leg R60.0 [place] [address] [place] [id number] [place] [address] 11 May, 2018 BMI 45.0-49.9, adult Z68.42 ; Well woman exam with routine gynecological exam Z01.419 and Breast cancer screening Z12.31 [place] [address] [place] [id number] [place] [address] Apr, Arthritis M19.90 [place] [address] [place] [id number] [place] [address] 16 Apr, 2018 Arthritis M19.90 and Otalgia of both ears H92.03 [place] [address] [place] [id number] [place] [address] Feb, [place] [address] [address] Feb, Low back pain M54.5 ; Other chronic pain G89.29 ; Exertional asthma J45.990 and Encounter for immunization Z23 [place] [address] [address] Feb, Skin fissures R23.4 ; Neurop athy G62.9 and Onychomycosis B35.1 [place] [address] [address] 05 Feb, 2018 Dysthymic disorder F34.1 [place] [address] [address] Feb, [place] [address] [address] Jan, [place] [address] [address] Jan, Abrasion of right elbow, ini tial encounter S50.311A ; Abrasion, right knee, initial encounter S80.211A and Sprain of other ligament of right ankle, initial encounter S93.491A [place] [address] [address] Jan, [facility] [address] [address] Jan, Injury of left ankle, initia l encounter S99.912A ; Fall down stairs, initial encounter W10.8XXA and BMI 45.0-49.9, adult Z68.42 [place] [address] [address] Jan, COPD exacerbation J44.1 [place] [address] [address] 13 Jan, 2018 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 [place] [address] [address] 08 Jan, 2018 Bronchitis J40 and Acute sup purative otitis media of left ear without spontaneous rupture of tympanic membrane, recurrence not specified H66.002 [place] [address] [address] Jan, [place] [address] [place] [id number] [place] [address] Jan, Bronchitis J40 and BMI 40.0- 44.9, adult Z68.41 [place] [address] [place] [id number] [place] [address] Jan, [place] [address] [place] [id number] [place] [address] Dec, Gastric pain R10.9 [place] [address] [place] [id number] [place] [address] Dec, [place] [address] [place] [id number] [place] [address] Dec, History of illicit drug use Z87.898 ; Neuropathy G62.9 ; COPD (chronic obstructive pulmonary disease) with chronic bronchitis J44.9 and Acute pain of right knee M25.561 [place] [id number] [place] [address] Nov, [place] [address] [address] Nov, Onychomycosis B35.1 and Cont usion of left foot, subsequent encounter S90.32XD [place] [address] [place] [id number] [place] [address] Nov, COPD exacerbation J44.1 [place] [address] [place] [id number] [place] [address] Sep, [place] [address] [place] [id number] [place] [address] Sep, Dysthymic disorder F34.1 ; T obacco abuse Z72.0 ; Pain in right knee M25.561 ; Pain in left knee M25.562 ; Other chronic pain G89.29 and BMI 40.0- 44.9, adult Z68.41 [place] [address] [address] Aug, Major depressive disorder, r ecurrent episode, moderate F33.1 and Social phobia F40.10 [place] [address] [address] 14 Aug, 2017 Dysthymic disorder F34.1 ; N on-pressure chronic ulcer of left thigh, unspecified ulcer stage L97.129 ; Tobacco abuse Z72.0 ; Mild chronic obstructive pulmonary disease J44.9 and Forgetfulness R68.89 [place] [address] [address] 09 Aug, 2017 Onychomycosis B35.1 ; Fissur e in skin of foot R23.4 and Foot callus L84 [facility] [address] [address] Jul, Right medial knee pain M25.5 61 ; Upper respiratory tract infection, unspecified type J06.9 and BMI 40.0-44.9, adult Z68.41 [facility] IN [place] [address] [address] 08 Jul, 2017 Nausea and vomiting, intract ability of vomiting not specified, unspecified vomiting type R11.2 ; Left ear pain H92.02 and Gastric pain R10.9 [place] [address] [address] Apr, Encounter for immunization Z 23 [place] [address] [address] Apr, Onychomycosis B35.1 ; Xerosi s of skin L85.3 ; Neuropathy G62.9 and 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 [place] [address] [place] [id number] [place] [address] Jan, Onychomycosis B35.1 and Neur opathy G62.9 [place] [address] [address] Dec, [facility] [place] [address] [id number] [address] [place] [address] Dec, [facility] [place] [address] [id number] [address] [place] [address] Nov, [facility] [place] [address] [facility] [id number] [address] [place] [address] Aug, [facility] [place] [address] [id number] [address] [place] [address] Aug, [facility] [place] [address] [id number] [address] [place] [address] Jul, [facility] [place] [address] [facility] [id number] [address] [place] [address] Jul, [facility] [place] [address] [facility] [id number] [address] [place] [address] Jul, Decubitus ulcer of left thig h, stage 2 L89.892 [facility] [place] [address] [facility] [id number] [address] [place] [address] 17 Jul, 2016 Decubitus ulcer of left thig h, stage 2 L89.892 [facility] [place] [address] [facility] [id number] [address] [place] [address] 17 Jul, 2016 [facility] [place] [address] [facility] [id number] [address] [place] [address] 15 Jul, 2016 Decubitus ulcer of left thig h, stage 2 L89.892 [facility] [place] [address] [facility] [id number] [address] [place] [address] 14 Jul, 2016 [facility] [place] [address] [facility] [id number] [address] [place] [address] 13 Jul, 2016 Cellulitis of other specifie d site L03.818 ; Illicit drug use F19.90 and Decubitus ulcer of left thigh, stage 2 L89.892 [facility] [place] [address] [facility] [id number] [address] [place] [id number] 08 Jul, 2016 [facility] [place] [address] [place] [id number] [address] [place] [address] Jul, Cellulitis of right breast N 61.0 [facility] [place] [address] [facility] [id number] [address] [place] [address] Jun, [facility], [place] [address] [address] Jun, [place] [address] [place] [id number] [place] [address] Jun, Wheezing R06.2 and Arthralgi a, unspecified joint M25.50 [place] [address] [place] [id number] [place] [address] May, [place] [address] [address] May, [facility], [place] [address] [place] [id number] [place] [address] May, [place] [address] [address] 05 May, 2016 Shortness of breath R06.02 [place] [address] [place] [id number] [place] [address] May, Onychomycosis B35.1 and Fiss ure in skin of foot R23.4 [facility] [place] [address] [place] [id number] [address] [place] [address] Apr, [facility] [address] [address] 18 Apr, 2016 Dizziness R42 [place] [address] [place] [id number] [place] [address] 14 Apr, 2016 Shortness of breath R06.02 ; Essential hypertension I10 ; Dizziness R42 and On home oxygen therapy Z99.81 [facility] [address] [id number] [address] [place] [id number] Apr, [facility] [address] [id number] [address] [place] [id number] Apr, [facility] [address] [id number] [address] [place] [id number] Apr, [facility] [address] [id number] [address] [place] [id number] Apr, [facility] [address] [id number] [address] [place] [id number] Apr, [facility] [place] [address] [id number] [address] [place] [id number] Apr, [facility] [place] [address] [id number] [address] [place] [id number] Apr, [facility] [place] [address] [id number] [address] [place] [id number] Mar, Mild chronic obstructive pul monary disease J44.9 [facility] [place] [address] [id number] [address] [place] [id number] Mar, [facility] [place] [address] [id number] [address] [place] [id number] Mar, Epigastric pain R10.13 ; Low back pain M54.5 ; Other chronic pain G89.29 and Breast cancer screening Z12.39 [facility] [place] [address] [id number] [address] [place] [id number] Mar, [facility] [place] [address] [id number] [address] [place] [phone] Mar, [facility] [place] [address] [id number] [address] [place] [id number] Feb, [facility], [place] [address] [id number] [address] [place] [id number] Feb, [facility], [place] [address] [id number] [address] [place] [address] Feb, Fissure in skin of foot R23. 4 and Onychomycosis B35.1 [place] [address] [place] [id number] [address] [place] [address] Jan, Agoraphobia F40.00 [place] [address] [address] [facility] [id number] [address] [place] [address] Dec, Agoraphobia F40.00 [place] [address] [address] [facility] [id number] [address] [place] [address] Dec, Mild persistent asthma witho ut complication J45.30 ; Dysthymic disorder F34.1 and Upper respiratory tract infection, unspecified type J06.9 [place] [address] [address] [facility] [id number] [address] [place] [address] Nov, Agoraphobia F40.00 [place] [address] [place] [id number] [address] [place] [address] October, Agoraphobia F40.00 [place] [address] [place] [id number] [address] [place] [address] Sep, Panic disorder without agora phobia F41.0 ; Agoraphobia F40.00 and Dysthymic disorder F34.1 [place] [address] [place] [id number] [address] [place] [address] Sep, Panic attacks F41.0 [place] [address] [address] [facility] [id number] [address] [place] [address] Sep, [place] [address] [address] [facility] [id number] [address] [place] [address] Sep, Panic disorder without agora phobia F41.0 ; Varicose veins of both lower extremities I83.93 and Fatigue R53.83 [place] [address] [address] [facility] [id number] [address] [place] [address] 14 Sep, 2015 Fatigue R53.83 [place] [address] [address] [place] [id number] [address] [place] [address] Sep, [facility], [place] [address] [place] [id number] [address] [place] [address] Aug, [facility], [place] [address] [place] [id number] [address] [place] [address] Aug, [facility], [place] [address] [address] Aug, Type 2 diabetes mellitus wit h diabetic neuropathic arthropathy E11.610 [place] [address] [place] [id number] [address] [place] [address] Aug, Panic disorder without agora phobia F41.0 ; Agoraphobia F40.00 and Dysthymic disorder F34.1 [place] [address] [address] Aug, Shortness of breath R06.02 ; Panic attacks F41.0 ; COPD (chronic obstructive pulmonary disease) J44.9 ; Tobacco abuse Z72.0 ; Family history of diabetes mellitus Z83.3 and Weight gain R63.5 [place] [address] [address] Aug, [place] [address] [place] [id number] [address] [place] [address] Jul, [place] [address] [address] Jun, Onychomycosis B35.1 ; Neurop athy G62.9 and Impaired circulation I99.9 [place] [address] [address] [place] [id number] [address] [place] [address] 09 Mar, 2015 Fissure in skin of foot R23. 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 [place] [id number] [place] [address] 18 Feb, 2015 Family history of coronary a rteriosclerosis V17.3 [facility], [place] [address] [id number] [address] [place] [address] 15 Feb, 2015 Allergic rhinitis due to darien agnieszka 477.0 ; Unspecified breast screening V76.10 ; Anxiety 300.00 and Family history of coronary arteriosclerosis V17.3 [facility], [place] [address] [id number] [address] [place] [address] Jan, [facility], [place] [address] [id number] [address] [place] [address] Dec, [facility], [place] [address] [id number] [address] [place] [address] Dec, Onychomycosis 110.1 and Skin fissures 709.8 [facility], [place] [address] [id number] [address] [place] [address] Sep, [facility], [place] [address] [id number] [address] [place] [address] Sep, [facility], [place] [address] [id number] [address] [place] [address] Aug, [facility], [place] [address] [id number] [address] [place] [address] Aug, [facility], [place] [address] [id number] [address] [place] [address] Jul, [facility], [place] [address] [id number] [address] [place] [phone] Jul, [facility], [place] [address] [id number] [address] [place] [id number] Jun, [facility], [place] [address] [id number] [address] [place] [id number] Jun, [facility], [place] [address] [id number] [address] [place] [id number] Jun, [facility], [place] [address] [facility] [id number] [address] [place] [address] Jun, [facility] [address] [id number] [address] [place] [address], [place] [address] Jun, [facility] [address] [id number] [address] [place] [address], [place] [address] May, [facility] [address] [id number] [address] [place] [address], [place] [address] May, [facility] [address] [id number] [address] [place] [address], [place] [address] May, [facility] [address] [id number] [address] [place] [address], [place] [address] May, [facility] [address] [id number] [address] [place] [address], [place] [address] May, [facility] [address] [id number] [address] [place] [address], [place] [address] May, [facility] [address] [id number] [address] [place] [address], [place] [address] May, [facility] [address] [id number] [address] [place] [address], [place] [address] May, [facility] [address] [id number] [address] [place] [address], [place] [address] Apr, [facility] [address] [id number] [address] [place] [address], [place] [address] Apr, [facility] [address] [id number] [address] [place] [address], [place] [address] Apr, [facility] [address] [id number] [address] [place] [address], [place] [address] Apr, [facility] [address] [id number] [address] [place] [address], [place] [address] Apr, [facility] [address] [id number] [address] [place] [address], [place] [address] Apr, [facility] [address] [id number] [address] [place] [id number] 07 Apr, 2014 [facility] [address] [id number] [address] [place] [address], [place] [address] Apr, [facility] [address] [id number] [address] [place] [address] Apr, [facility] [address] [id number] [address] [place] [address], [place] [address] Apr, [facility] [address] [id number] [address] [place] [address], [place] [address] Mar, [facility] [address] [id number] [address] [place] [address], [place] [address] Mar, [facility] [address] [id number] [address] [place] [address], [place] [address] Mar, [facility] [address] [id number] [address] [place] [phone] Mar, [facility] [address] [id number] [address] [place] [address], [place] [address] Mar, [facility] [address] [id number] [address] [place] [address], [place] [address] Mar, [facility] [address] [id number] [address] [place] [address] Mar, [facility] [address] [id number] [address] [place] [address], [place] [address] Mar, [facility] [address] [id number] [address] [place] [address] Mar, [facility] [address] [id number] [address] [place] [address], [place] [address] Mar, [facility] [address] [id number] [address] [place] [address], [place] [address] Mar, [facility] [address] [id number] [address] [place] [address], [place] [address] Mar, [facility] [address] [id number] [address] [place] [address], [place] [address] 22 Mar, 2013 [facility] [address] [id number] [address] [place] [address], [place] [address] 22 Mar, 2013 [facility] [address] [id number] [address] [place] [address], [place] [address] 22 Mar, 2013 [facility] [address] [id number] [address] [place] [address], [place] [address] 20 Mar, 2013 [facility] [address] [id number] [address] [place] [address], [place] [address] 20 Mar, 2013 [facility] [address] [id number] [address] [place] [address], [place] [address] 16 Mar, 2013 [facility] [address] [id number] [address] [place] [address], [place] [address] 16 Mar, 2014 [facility] [address] [id number] [address] [place] [address], [place] [address] 15 Mar, 2013 [facility] [address] [id number] [address] [place] [address], [place] [address] 14 Mar, 2014 [facility] [address] [id number] [address] [place] [address], [place] [address] 14 Mar, 2013 [facility] [address] [id number] [address] [place] [address], [place] [address] 14 Mar, 2014 [facility] [address] [id number] [address] [place] [address], [place] [address] 14 Mar, 2013 [facility] [address] [id number] [address] [place] [address], [place] [address] 09 Mar, 2014 [facility] [address] [id number] [address] [place] [address], [place] [address] 09 Mar, 2013 [facility] [address] [id number] [address] [place] [address], [place] [address] 09 Mar, 2014 [facility] [address] [id number] [address] [place] [address] [address] Mar, [facility] [address] [id number] [address] [place] [address], [place] [address] 30 Feb, 2013 [facility] [address] [id number] [address] [place] [address], [place] [address] 30 Feb, 2013 [facility] [address] [id number] [address] [place] [address], [place] [address] 30 Feb, 2013 [facility] [address] [id number] [address] [place] [address], [place] [address] 30 Feb, 2013 [facility] [address] [id number] [address] [place] [address], [place] [address] Feb, 2013 [facility] [address] [id number] [address] [place] [address], [place] [address] Feb, 2013 [facility] [address] [id number] [address] [place] [address], [place] [address] Feb, 2013 [facility] [address] [id number] [address] [place] [address], [place] [address] Feb, 2013 [facility] [address] [id number] [address] [place] [address], [place] [address] Feb, 2013 [facility] [address] [id number] [address] [place] [address], [place] [address] Feb, 2013 [facility] [address] [id number] [address] [place] [address], [place] [address] Feb, 2013 [facility] [address] [id number] [address] [place] [address], [place] [address] Feb, 2013 [facility] [address] [id number] [address] [place] [address], [place] [address] Jan, [facility] [address] [id number] [address] [place] [address], [place] [address] Jan, [facility] [address] [id number] [address] [place] [address], [place] [address] Jan, [facility] [address] [id number] [facility] [place] [address] Jan, [facility] [address] [id number] [address] [place] [address], [place] [address] Jan, [facility] [address] [id number] [address] [place] [address], [place] [address] Jan, [facility] [address] [id number] [address] [place] [address], [place] [address] Jan, [facility] [address] [id number] [address] [place] [address], [place] [address] Jan, [facility] [address] [id number] [address] [place] [address], [place] [address] Jan, [facility] [address] [id number] [address] [place] [address], [place] [address] Jan, [facility] [address] [id number] [address] [place] [address], [place] [address] Jan, [facility] [address] [id number] [address] [place] [address], [place] [address] Jan, [facility] [address] [id number] [address] [place] [address], [place] [address] Jan, [facility] [address] [id number] [address] [place] [address], [place] [address] Dec, [facility] [address] [id number] [address] [place] [address], [place] [address] Dec, [facility] [address] [id number] [address] [place] [address], [place] [address] Dec, [facility] [address] [id number] [address] [place] [address], [place] [address] Dec, [facility] [address] [id number] [address] [place] [address], [place] [address] Dec, [facility] [address] [id number] [address] [place] [address], [place] [address] Dec, [facility] [address] [id number] [facility] [place] [address] Dec, [facility] [address] [id number] [address] [place] [address], [place] [address] Dec, [facility] [address] [id number] [address] [place] [address], [place] [address] Dec, [facility] [address] [id number] [address] [place] [address], [place] [address] Dec, [facility] [address] [id number] [address] [place] [address], [place] [address] Dec, [facility] [address] [id number] [address] [place] [address], [place] [address] Dec, [facility] [address] [id number] [address] [place] [address], [place] [address] Dec, [facility] [address] [id number] [address] [place] [address], [place] [address] Dec, [facility] [address] [id number] [address] [place] [address], [place] [address] Dec, [facility] [address] [id number] [address] [place] [address], [place] [address] Dec, [facility] [address] [id number] [address] [place] [address], [place] [address] Dec, [facility] [address] [id number] [address] [place] [address], [place] [address] Dec, [facility] [address] [id number] [address] [place] [address], [place] [address] Nov, [facility] [address] [id number] [address] [place] [address], [place] [address] Nov, [facility] [address] [id number] [address] [place] [address], [place] [address] Nov, [facility] [address] [id number] [address] [place] [address], [place] [address] Nov, [facility] [address] [id number] [facility] [place] [address] Nov, [facility] [address] [id number] [address] [place] [address], [place] [address] Nov, [facility] [address] [id number] [address] [place] [address], [place] [address] Nov, [facility] [address] [id number] [address] [place] [address], [place] [address] Nov, [facility] [address] [id number] [address] [place] [address], [place] [address] Nov, [facility] [address] [id number] [address] [place] [address], [place] [address] Nov, [facility] [address] [id number] [address] [place] [address], [place] [address] Nov, [facility] [address] [id number] [address] [place] [address], [place] [address] Nov, [facility] [address] [id number] [address] [place] [address], [place] [address] Nov, [facility] [address] [id number] [address] [place] [address], [place] [address] Nov, [facility] [address] [id number] [address] [place] [address], [place] [address] Nov, [facility] [address] [id number] [address] [place] [address], [place] [address] Nov, [facility] [address] [id number] [address] [place] [address], [place] [address] Nov, [facility] [address] [id number] [address] [place] [address], [place] [address] Nov, [facility] [address] [id number] [address] [place] [address], [place] [address] Nov, [facility] [address] [id number] [address] [place] [address], [place] [address] Nov, [facility] [address] [id number] [address] [place] [address], [place] [address] October, [facility] [address] [id number] [address] [place] [address], [place] [address] October, [facility] [address] [id number] [address] [place] [address], [place] [address] October, [facility] [address] [id number] [address] [place] [address], [place] [address] October, [facility] [address] [id number] [address] [place] [address], [place] [address] Sep, [facility] [address] [id number] [address] [place] [address], [place] [address] Sep, [facility] [address] [id number] [address] [place] [address], [place] [address] Sep, [facility] [address] [id number] [address] [place] [address], [place] [address] Sep, [facility] [address] [id number] [address] [place] [address], [place] [address] Sep, [facility] [address] [id number] [address] [place] [address], [place] [address] Sep, [facility] [address] [id number] [address] [place] [address], [place] [address] Sep, [facility] [address] [id number] [address] [place] [address], [place] [address] Sep, [facility] [address] [id number] [address] [place] [address], [place] [address] Sep, [facility] [address] [id number] [address] [place] [address], [place] [address] Aug, [facility] [address] [id number] [address] [place] [address], [place] [address] Aug, [facility] [address] [id number] [facility] [place] [address] Aug, [facility] [address] [id number] [address] [place] [address], [place] [address] Aug, [facility] [address] [id number] [address] [place] [address], [place] [address] Aug, [facility] [address] [id number] [address] [place] [address], [place] [address] Aug, [facility] [address] [id number] [address] [place] [address], [place] [address] Aug, [facility] [address] [id number] [address] [place] [address], [place] [address] Aug, [facility] [address] [id number] [address] [place] [address], [place] [address] Jul, [facility] [address] [id number] [address] [place] [address], [place] [address] Jul, [facility] [address] [id number] [address] [place] [address], [place] [address] Jun, [facility] [address] [id number] [address] [place] [address], [place] [address] Jun, [facility] [address] [id number] [address] [place] [address], [place] [address] Jun, [facility] [address] [id number] [address] [place] [address], [place] [address] Jun, [facility] [address] [id number] [address] [place] [address], [place] [address] Jun, [facility] [address] [id number] [address] [place] [address], [place] [address] Jun, [facility] [address] [id number] [address] [place] [address], [place] [address] Jun, [facility] [address] [id number] [address] [place] [address], [place] [address] 15 Jun, 2013 [facility] [address] [id number] [address] [place] [address], [place] [address] 15 Jun, 2013 [facility] [address] [id number] [address] [place] [address], [place] [address] 14 Jun, 2013 [facility] [address] [id number] [address] [place] [address], [place] [address] 02 Jun, 2013 [facility] [address] [id number] [address] [place] [address], [place] [address] 02 Jun, 2013 [facility] [address] [id number] [address] [place] [address], [place] [address] 31 May, 2013 [facility] [address] [id number] [address] [place] [address], [place] [address] 31 May, 2013 [facility] [address] [id number] [address] [place] [address], [place] [address] 31 May, 2013 [facility] [address] [id number] [address] [place] [address], [place] [address] 31 May, 2013 [facility] [address] [id number] [address] [place] [address], [place] [address] 31 May, 2013 [facility] [address] [id number] [address] [place] [address], [place] [address] 31 May, 2013 [facility] [address] [id number] [address] [place] [address], [place] [address] 26 May, 2013 [facility] [address] [id number] [address] [place] [address], [place] [address] 23 May, 2013 [facility] [address] [id number] [address] [place] [address], [place] [address] 23 May, 2013 [facility] [address] [id number] [address] [place] [address], [place] [address] 16 May, 2013 [facility] [address] [id number] [address] [place] [address], [place] [address] 16 May, 2013 [facility] [address] [id number] [address] [place] [address], [place] [address] May, [facility] [address] [id number] [address] [place] [address], [place] [address] May, [facility] [address] [id number] [address] [place] [address], [place] [address] Apr, [facility] [address] [id number] [address] [place] [address], [place] [address] Apr, [facility] [address] [id number] [address] [place] [address], [place] [address] Mar, [facility] [address] [id number] [address] [place] [address], [place] [address] Mar, [facility] [address] [id number] [address] [place] [address], [place] [address] Feb, [facility] [address] [id number] [address] [place] [address], [place] [address] Feb, [facility] [address] [id number] [address] [place] [address], [place] [address] Feb, [facility] [address] [id number] [address] [place] [address], [place] [address] Feb, [facility] [address] [id number] [address] [place] [address], [place] [address] Jan, [facility] [address] [id number] [address] [place] [address], [place] [address] Jan, [facility] [address] [id number] [address] [place] [address], [place] [address] Jan, [facility] [address] [id number] [address] [place] [address], [place] [address] Jan, [facility] [address] [id number] [address] [place] [address], [place] [address] Jan, [facility] [address] [id number] [address] [place] [address], [place] [address] Jan, [facility] [address] [id number] [address] [place] [address], [place] [address] Dec, [facility] [address] [id number] [address] [place] [address], [place] [address] Dec, [facility] [address] [id number] [address] [place] [address], [place] [address] Dec, [facility] [address] [id number] [address] [place] [address], [place] [address] Dec, [facility] [address] [id number] [address] [place] [address], [place] [address] Nov, [facility] [address] [id number] [address] [place] [address], [place] [address] October, [facility] [address] [id number] [address] [place] [address], [place] [address] October, [facility] [address] [id number] [address] [place] [address], [place] [address] October, [facility] [address] [id number] [address] [place] [address], [place] [address] Sep, [facility] [address] [id number] [address] [place] [address], [place] [address] Sep, [facility] [address] [id number] [address] [place] [address], [place] [address] Jun, [facility] [address] [id number] [address] [place] [address], [place] [address] Jun, [facility] [address] [id number] [address] [place] [address], [place] [address] Jun, [facility] [address] [id number] [address] [place] [address], [place] [address] Apr, [facility] [address] [id number] [address] [place] [address], [place] [address] Apr, [facility] [address] [id number] [address] [place] [address], [place] [address] Apr, [facility] [address] [id number] [address] [place] [address], [place] [address] Apr, [facility] [address] [id number] [address] [place] [address], [place] [address] Mar, [facility] [address] [id number] [address] [place] [address], [place] [address] Mar, [facility] [address] [id number] [address] [place] [address], [place] [address] Mar, [facility] [address] [id number] [address] [place] [address], [place] [address] Mar, [facility] [address] [id number] [address] [place] [address], [place] [address] Feb, [facility] [address] [id number] [address] [place] [address], [place] [address] Feb, [facility] [address] [id number] [address] [place] [address], [place] [address] Feb, [facility] [address] [id number] [address] [place] [address], [place] [address] Jan, [facility] [address] [id number] [address] [place] [address], [place] [address] Jan, [facility] [address] [id number] [address] [place] [address], [place] [address] Jan, [facility] [address] [id number] [address] [place] [address], [place] [address] Jan, [facility] [address] [id number] [address] [place] [address], [place] [address] Dec, [facility] [address] [id number] [address] [place] [address], [place] [address] Dec, [facility] [address] [id number] [address] [place] [address], [place] [address] Nov, [facility] [address] [id number] [address] [place] [address], [place] [address] Nov, [facility] [address] [id number] [address] [place] [address], [place] [address] October, [facility] [address] [id number] [address] [place] [address], [place] [address] October, [facility] [address] [id number] [address] [place] [address], [place] [address] October, [facility] [address] [id number] [address] [place] [address], [place] [address] Sep, [facility] [address] [id number] [address] [place] [address], [place] [address] Sep, [facility] [address] [id number] [address] [place] [address], [place] [address] Sep, [facility] [address] [id number] [address] [place] [address], [place] [address] Aug, [facility] [address] [id number] [address] [place] [address], [place] [address] Aug, [facility] [address] [id number] [address] [place] [address], [place] [address] Aug, [facility] [address] [id number] [address] [place] [address], [place] [address] Aug, [facility] [address] [id number] [address] [place] [address], [place] [address] 07 Aug, 2011 [facility] [address] [id number] [address] [place] [address], [place] [address] 23 Jul, 2011 [facility] [address] [id number] [address] [place] [address], [place] [address] 16 Jul, 2011 [facility] [address] [id number] [address] [place] [address], [place] [address] 13 Jul, 2011 [facility] [address] [id number] [address] [place] [address] [place] [address] 09 Jul, 2011 [facility] [address] [id number] [address] [place] [address], [place] [address] Jul, [facility] [address] [id number] [address] [place] [address], [place] [address] 06 Jul, 2011 [facility] [address] [id number] [address] [place] [address], [place] [address] Jul, [facility] [address] [id number] [address] [place] [address], [place] [address] Jul, [facility] [address] [id number] [address] [place] [address], [place] [address] Jun, [facility] [address] [id number] [address] [place] [address], [place] [address] Jun, [facility] [address] [id number] [address] [place] [address], [place] [address] May, [facility] [address] [id number] [address] [place] [address], [place] [address] May, [facility] [address] [id number] [address] [place] [address], [place] [address] May, [facility] [address] [id number] [address] [place] [address], [place] [address] May, [facility] [address] [id number] [address] [place] [address], [place] [address] Apr, [facility] [address] [id number] [address] [place] [address], [place] [address] Apr, [facility] [address] [id number] [address] [place] [address], [place] [address] Apr, [facility] [address] [id number] [address] [place] [address], [place] [address] Mar, [facility] [address] [id number] [address] [place] [address], [place] [address] Mar, [facility] [address] [id number] [address] [place] [address], [place] [address] 18 Mar, 2011 [facility] [address] [id number] [address] [place] [address], [place] [address] 2011 [facility] [address] [id number] [address] [place] [address], [place] [address] Dec, [facility] [address] [id number] [address] [place] [address], [place] [address] October, [facility] [address] [id number] [address] [place] [address], [place] [address] May, [facility] [address] [id number] [address] [place] [address], [place] [address] 13 May, 2010 [facility] [address] [id number] [address] [place] [address], [place] [address] 13 May, 2010 [facility] [address] [id number] [address] [place] [address], [place] [address] 06 May, 2010 [facility] [address] [id number] [address] [place] [address], [place] [address] Mar, [facility] [address] [id number] [address] [place] [address], [place] [address] Mar, [facility] [address] [id number] [address] [place] [address], [place] [address] 31 May, 2009 [facility] [address] [id number] [address] [place] [address] 30 May, 2009 [facility] [address] [id number] [address] [place] [address], [place] [address] 08 May, 2009 [facility] [address] [id number] [address] [place] [address], [place] [address] 08 May, 2009 [facility] [address] [id number] [address] [place] [address], [place] [address] Apr, [facility] [address] [id number] [address] [place] [address] Apr, [facility] [place] [address] [facility] [id number] [address] [address] October, IMMUNIZATIONS No Known Immunizations SOCIAL HISTORY [...]
--- OUTSIDE RECORDS SUMMARY | 2020-01-13 11:51 | XMS REPORT ---
Author Author Monique RAHMAN [facility] Address [address] [place] [address] Care Team Providers [employer] Name Role Phone RASHEED RAHMAN Unavailable PROBLEMS Type Condition ICD9-CM Code IQW49-EV Code Onset Dates Condition S tatus SNOMED Code Problem History of illicit drug use Z87.898 Ac tive 684168826 Problem Snoring R06.83 Active 50269764 Problem Impaired circulation I99.9 Active 03404833 Problem MRSA (methicillin resistant staph aureus) culture positive Z22.322 Active 235212133 Problem Panic disorder without agoraphobia F41.0 Active 83474840 Problem Dysthymic disorder F34.1 Active 7 5899372 Problem Mood disorder F39 Active 021731 05 Problem Arthritis M19.90 Active 8661320 Problem Mild chronic obstructive pulmonary disease J44.9 Active 438096694 Problem Mild persistent asthma without complication J45.30 Active 950998191 Problem Essential hypertension I10 Active 00679438 Problem On home oxygen therapy Z99.81 Active 733037695402 Problem Social phobia F40.10 Active 035560 02 Problem Neuropathy G62.9 Active 762877727 Problem 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 Active 094237658 Problem Major depressive disorder, recurrent episode, moderate F33.1 Active 963941334 Problem Psychotic disorder F29 Active 6 5709482 Problem Hypertension, benign I10 Active 06497952 Problem Onychomycosis B35.1 Active 298075 008 Problem Body mass index (BMI) 40.0-44.9, adult Z68.41 Active 160283451 Problem Varicose veins of both lower extremities I83.93 Active 90110898 Problem Sciatica, left side M54.32 Active 00442222 Problem Agoraphobia F40.00 Active 52109669 Problem Fatigue R53.83 Active 41843639 Problem Major depressive disorder in full remission F32.5 Active 79893143 Problem Slow transit constipation K59.01 Acti ve 47810183 Problem Chronic obstructive pulmonary disease, unspecified COPD ty pe J44.9 Active 52285177 Problem Unspecified psychosis not du e to a substance or known physiological condition F29 Active 086070617 ALLERGIES No Information ENCOUNTERS Encounter Location Date Diagnosis [place] [address] [address] Nov, [place] [address] [address] Sep, [place] [address] [address] Sep, [place] [address] [address] Aug, Sciatica, left side M54.32 [place] [address] [address] Aug, Neuropathy G62.9 ; Onychomycosis B35.1 ; Callus of foot L84 and Skin fissures R23.4 [place] [address] [address] Jul, [place] [address] [address] Jul, Morbid obesity E66.01 [place] [address] [address] Jul, Unspecified psychosis not due to a subst ance or known physiological condition F29 ; Chronic obstructive pulmonary disease, unspecified COPD type J44.9 and Body mass index (BMI) 40.0-44.9, adult Z68.41 [place] [address] [address] Jun, [place] [address] [address] Jun, Morbid obesity E66.01 [place] [address] [address] May, Morbid obesity E66.01 [place] [address] [address] May, Encounter for immunization Z23 [place] [address] [address] May, Major depressive disorder, recurrent epi sode, moderate F33.1 ; Panic disorder without agoraphobia F41.0 and Morbid obesity E66.01 [place] [address] [address] May, Major depressive disorder in full remiss ion F32.5 and Panic disorder without agoraphobia F41.0 [place] [address] [address] Apr, Morbid obesity E66.01 [place] [address] [address] Apr, Slow transit constipation K59.01 and Lois lulitis of left lower extremity L03.116 [place] [address] [address] Apr, Morbid obesity E66.01 [place] [address] [address] Apr, [place] [address] [address] Apr, Major depressive disorder, recurrent epi sode, moderate F33.1 and Panic disorder without agoraphobia F41.0 [place] [address] [address] Mar, Viral upper respiratory tract infection J06.9 [place] [address] [address] Mar, Bronchitis J40 and Encounter for immuniz ation Z23 [place] [address] [address] Mar, Morbid obesity E66.01 [place] [address] [address] 11 Feb, 2019 Major depressive disorder, recurrent epi sode, moderate F33.1 and Panic disorder without agoraphobia F41.0 [place] [address] [address] 10 Feb, 2019 Morbid obesity E66.01 [place] [address] [address] 06 Feb, 2019 Onychomycosis B35.1 ; Type 2 diabetes me llitus with diabetic neuropathic arthropathy E11.610 and Xerosis of skin L85.3 [place] [address] [address] 04 Feb, 2019 Major depressive disorder, recurrent epi sode, moderate F33.1 ; Panic disorder without agoraphobia F41.0 and Morbid obesity E66.01 [place] [address] [address] Jan, Major depressive disorder in full remiss ion F32.5 and Panic disorder without agoraphobia F41.0 [place] [address] [address] Jan, Pneumonia of both lower lobes due to inf ectious organism J18.1 and Morbid obesity E66.01 [place] [address] [address] Jan, [place] [address] [address] Jan, Major depressive disorder in full remiss ion F32.5 and Panic disorder without agoraphobia F41.0 [place] [address] [address] Jan, [place] [address] [address] Jan, Major depressive disorder, recurrent epi sode, moderate F33.1 ; Panic disorder without agoraphobia F41.0 and Morbid obesity E66.01 [place] [address] [address] Dec, Bilious vomiting with nausea R11.14 ; Co ughing R05 and Choking, subsequent encounter T17.308D [place] [address] [address] Dec, Morbid obesity E66.01 [place] [address] [address] Dec, Major depressive disorder, recurrent epi sode, moderate F33.1 and Panic disorder without agoraphobia F41.0 [place] [address] [address] Dec, [place] [address] [address] Dec, Major depressive disorder, recurrent epi sode, moderate F33.[address] [address] Nov, Major depressive disorder, recurrent epi sode, moderate F33.1 ; Panic disorder without agoraphobia F41.0 and Morbid obesity E66.01 [place] [address] [address] Nov, Morbid obesity E66.01 [place] [address] [address] Nov, Major depressive disorder, recurrent epi sode, moderate F33.1 and Panic disorder without agoraphobia F41.0 [facility] [address] [facility] [id number] [address] [address] Nov, Allergic reaction, initial e ncounter T78.40XA and Morbid obesity E66.01 [place] [address] [address] Nov, [address] [address] 13 Nov, 2018 Morbid obesity E66.01 ; Swallowing probl em R13.10 and Hypertension, benign I10 [facility] [address] [facility] [id number] [address] [address] Nov, Morbid obesity E66.01 ; COPD exacerbation J44.1 and Non- recurrent acute suppurative otitis media of left ear without spontaneous rupture of tympanic membrane H66.002 [facility] [address] [address] Nov, Onychomycosis B35.1 ; Neuropathy G62.9 a nd Fissure in skin of foot R23.4 [place] [address] [address] October, Major depressive disorder, recurrent epi sode, moderate F33.1 ; Panic disorder without agoraphobia F41.0 and Morbid obesity E66.01 [facility] [address] [facility] [id number] [address] [address] October, Viral upper respiratory trac t infection J06.9 [place] [address] [address] October, [facility] [address] [address] October, Major depressive disorder, recurrent epi sode, moderate F33.1 and Panic disorder without agoraphobia F41.0 [place] [address] [address] October, [place] [address] [address] October, [place] [address] [address] October, [place] [address] [address] October, [facility] [address] [address] October, [facility] [address] [address] October, [place] [address] [address] October, Major depressive disorder, recurrent epi sode, moderate F33.1 and Panic disorder without agoraphobia F41.0 [place] [address] [address] Sep, Morbid obesity E66.01 and Lumbar neuriti s M54.16 [place] [address] [address] Sep, Panic disorder without agoraphobia F41.0 and Major depressive disorder, recurrent episode, moderate F33.1 [facility] [address] [facility] [id number] [address] [place] [address] Sep, Gastroenteritis K52.9 ; Low back pain M54.5 ; Other chronic pain G89.29 and Morbid obesity E66.01 [place] [address] [address] Sep, Major depressive disorder, recurrent epi sode, moderate F33.1 ; Panic disorder without agoraphobia F41.0 and Social phobia F40.10 [place] [address] [address] Sep, Panic disorder without agoraphobia F41.0 [place] [address] [address] Sep, Panic disorder without agoraphobia F41.0 [place] [address] [address] Aug, Panic disorder without agoraphobia F41.0 ; Major depressive disorder, recurrent episode, moderate F33.1 ; Social phobia F40.10 ; Psychotic disorder F29 ; Tardive dyskinesia G24.01 and Morbid obesity E66.01 [place] [address] [address] Aug, Dysthymic disorder F34.1 and Psychotic d isorder F29 [place] [address] [address] Aug, Encounter for Medicare annual wellness e xam Z00.00 ; Morbid obesity E66.01 and 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.610 [place] [address] [address] Aug, Dysthymic disorder F34.1 and Psychotic d isorder F29 [place] [address] [address] Aug, Neuropathy G62.9 ; Onychomycosis B35.1 a nd Xerosis of skin L85.3 [place] [address] [address] 13 Jul, 2018 [place] [address] [address] Jul, Mood disorder F39 ; Wheezing R06.2 ; iDego sanchez, initial encounter T17.308A and Coughing R05 [place] [address] [address] 07 Jul, 2018 Low back pain M54.5 [facility] [address] [facility] [id number] [address] [place] [address] Jun, Flu-like symptoms R68.89 ; B NV 45.0-49.9, adult Z68.42 ; COPD exacerbation J44.1 and Acute bronchitis J20.9 [place] [address] [address] Jun, [place] [address] [address] May, [place] [address] [address] May, Onychomycosis B35.1 and Type 2 diabetes mellitus with diabetic neuropathic arthropathy E11.610 [place] [address] [address] May, Low back pain M54.5 and Edema leg R60.0 [place] [address] [address] 11 May, 2018 BMI 45.0-49.9, adult Z68.42 ; Well woman exam with routine gynecological exam Z01.419 and Breast cancer screening Z12.31 [place] [address] [address] 19 Apr, 2018 Arthritis M19.90 [place] [address] [address] 16 Apr, 2018 Arthritis M19.90 and Otalgia of both ear s H92.03 [place] [address] [address] 28 Feb, 2018 [place] [address] [address] 28 Feb, 2018 Low back pain M54.5 ; Other chronic pain G89.29 ; Exertional asthma J45.990 and Encounter for immunization Z23 [place] [address] [address] 21 Feb, 2018 Skin fissures R23.4 ; Neuropathy G62.9 a nd Onychomycosis B35.1 [place] [address] [address] 05 Feb, 2018 Dysthymic disorder F34.1 [place] [address] [address] 04 Feb, 2018 [place] [address] [address] Jan, [place] [address] [address] Jan, Abrasion of right elbow, initial encount er S50.311A ; Abrasion, right knee, initial encounter S80.211A and Sprain of other ligament of right ankle, initial encounter S93.491A [place] [address] [address] Jan, [facility] [address] [facility] [id number] [address] [place] [address] Jan, Injury of left ankle, initia l encounter S99.912A ; Fall down stairs, initial encounter W10.8XXA and BMI 45.0-49.9, adult Z68.42 [facility] [address] [address] Jan, COPD exacerbation J44.1 [place] [address] [address] Jan, Dysfunction of both eustachian tubes H69 .83 [place] [address] [address] Jan, Bronchitis J40 and Acute suppurative giovana tis media of left ear without spontaneous rupture of tympanic membrane, recurrence not specified H66.002 [place] [address] [address] Jan, [place] [address] [address] 03 Jan, 2018 Bronchitis J40 and BMI 40.0-44.9, adult Z68.41 [place] [address] [address] Jan, [place] [address] [address] Dec, Gastric pain R10.9 [place] [address] [address] Dec, [place] [address] [address] Dec, History of illicit drug use Z87.898 ; Ne uropathy G62.9 ; COPD (chronic obstructive pulmonary disease) with chronic bronchitis J44.9 and Acute pain of right knee M25.561 [place] [address] [address] Nov, [place] [address] [address] 15 Nov, 2017 Onychomycosis B35.1 and Contusion of lef t foot, subsequent encounter S90.32XD [address] [address] 13 Nov, 2017 COPD exacerbation J44.[address] [address] Sep, [address] [address] Sep, Dysthymic disorder F34.1 ; Tobacco abuse Z72.0 ; Pain in right knee M25.561 ; Pain in left knee M25.562 ; Other chronic pain G89.29 and BMI 40.0- 44.9, adult Z68.[address] [address] Aug, Major depressive disorder, recurrent epi sode, moderate F33.1 and Social phobia F40.[address] [address] Aug, Dysthymic disorder F34.1 ; Non-pressure chronic ulcer of left thigh, unspecified ulcer stage L97.129 ; Tobacco abuse Z72.0 ; Mild chronic obstructive pulmonary disease J44.9 and Forgetfulness R68.[address] [address] Aug, Onychomycosis B35.1 ; Fissure in skin of foot R23.4 and Foot callus L84 [facility] [address] [place] [id number] [place] [address] Jul, Right medial knee pain M25.5 61 ; Upper respiratory tract infection, unspecified type J06.9 and BMI 40.0-44.9, adult Z68.41 [facility] [address] [place] [id number] [place] [address] Jul, Nausea and vomiting, intract ability of vomiting not specified, unspecified vomiting type R11.2 ; Left ear pain H92.02 and Gastric pain R10.9 [place] [address] [address] Apr, Encounter for immunization Z23 [facility] [address] [address] Apr, Onychomycosis B35.1 ; Xerosis of skin L8 5.3 ; Neuropathy G62.9 and 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 [place] [address] [address] Jan, Onychomycosis B35.1 and Neuropathy G62.9 [place] [address] [address] Dec, [place] [address] [address] Dec, [place] [address] [address] Nov, [place] [address] [address] Aug, [place] [address] [address] Aug, [place] [address] [address] Jul, [place] [address] [address] Jul, [place] [address] [address] Jul, Decubitus ulcer of left thigh, stage 2 L 89.892 [place] [address] [address] Jul, Decubitus ulcer of left thigh, stage 2 L 89.892 [place] [address] [address] 17 Jul, 2016 [facility] [address] [address] 15 Jul, 2016 Decubitus ulcer of left thigh, stage 2 L 89.892 [facility] [address] [address] 14 Jul, 2016 [facility] [address] [address] 13 Jul, 2016 Cellulitis of other specified site L03.8 18 ; Illicit drug use F19.90 and Decubitus ulcer of left thigh, stage 2 L89.892 [facility] [address] [address] 08 Jul, 2016 [facility] [address] [address] 06 Jul, 2016 Cellulitis of right breast N61.0 [facility] [address] [address] Jun, [facility] [address] [address] Jun, [facility] [address] [address] Jun, Wheezing R06.2 and Arthralgia, unspecifi ed joint M25.50 [facility] [address] [address] May, [facility] [address] [address] May, [facility] [address] [address] May, [facility] [address] [address] May, Shortness of breath R06.02 [facility] [address] [address] May, Onychomycosis B35.1 and Fissure in skin of foot R23.4 [facility] [address] [place] [id number] [place] [address] 28 Apr, 2016 [facility] [address] [facility] [id number] [address] [place] [address] 18 Apr, 2016 Dizziness R42 [facility] [address] [place] [id number] [place] [address] 14 Apr, 2016 Shortness of breath R06.02 ; Essential h ypertension I10 ; Dizziness R42 and On home oxygen therapy Z99.81 [facility] [address] [address] Apr, [facility] [address] [address] 08 Apr, 2016 [facility] [address] [address] Apr, [facility] [address] [address] Apr, [facility] [address] [address] Apr, [facility] [address] [address] Apr, [facility] [address] [address] Apr, [facility] [address] [address] Mar, Mild chronic obstructive pulmonary disea se J44.9 [facility] [address] [address] Mar, [facility] [address] [address] Mar, Epigastric pain R10.13 ; Low back pain M 54.5 ; Other chronic pain G89.29 and Breast cancer screening Z12.39 [facility] [address] [address] Mar, [facility] [address] [address] Mar, [facility] [address] [address] Feb, [facility] [address] [address] Feb, [facility] [address] [address] Feb, Fissure in skin of foot R23.4 and Onycho mycosis B35.1 [facility] [address] [address] Jan, Agoraphobia F40.00 [place] [address] [address] Dec, Agoraphobia F40.00 [place] [address] [address] Dec, Mild persistent asthma without complicat ion J45.30 ; Dysthymic disorder F34.1 and Upper respiratory tract infection, unspecified type J06.9 [place] [address] [address] Nov, Agoraphobia F40.00 [place] [address] [address] October, Agoraphobia F40.00 [facility] [address] [address] Sep, Panic disorder without agoraphobia F41.0 ; Agoraphobia F40.00 and Dysthymic disorder F34.1 [place] [address] [address] Sep, Panic attacks F41.0 [facility] [address] [address] Sep, [facility] [address] [address] Sep, Panic disorder without agoraphobia F41.0 ; Varicose veins of both lower extremities I83.93 and Fatigue R53.83 [place] [address] [address] 14 Sep, 2015 Fatigue R53.83 [place] [address] [address] Sep, [place] [address] [address] Aug, [place] [address] [address] Aug, [place] [address] [address] Aug, Type 2 diabetes mellitus with diabetic n europathic arthropathy E11.610 [place] [address] [address] Aug, Panic disorder without agoraphobia F41.0 ; Agoraphobia F40.00 and Dysthymic disorder F34.1 [place] [address] [address] Aug, Shortness of breath R06.02 ; Panic attac ks F41.0 ; COPD (chronic obstructive pulmonary disease) J44.9 ; Tobacco abuse Z72.0 ; Family history of diabetes mellitus Z83.3 and Weight gain R63.5 [place] [address] [address] Aug, [place] [address] [address] Jul, [place] [address] [address] Jun, Onychomycosis B35.1 ; Neuropathy G62.9 a nd Impaired circulation I99.9 [place] [address] [address] Mar, Fissure in skin of foot R23.4 ; Onychomy cosis B35.1 and 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 [facility] [address] [address] 18 Feb, 2015 Family history of coronary arteriosclero sis V17.3 [facility] [address] [address] 15 Feb, 2015 Allergic rhinitis due to pollen 477.0 ; Unspecified breast screening V76.10 ; Anxiety 300.00 and Family history of coronary arteriosclerosis V17.3 [facility] [address] [address] Jan, [facility] [address] [address] Dec, [facility] [address] [address] Dec, Onychomycosis 110.1 and Skin fissures 70 9.8 [facility] [address] [address] Sep, [facility] [address] [address] Sep, [facility] [address] [address] Aug, [facility] [address] [address] Aug, [facility] [address] [address] Jul, [facility] [address] [address] Jul, [facility] [address] [address] Jun, [facility] [address] [address] Jun, [facility] [address] [place] [address] Jun, [facility] [address] [id number] [place] [address] Jun, [facility] [address] [id number] [place] [address] Jun, [facility] [address] [id number] [place] [address] May, [facility] [address] [id number] [place] [address] May, [facility] [address] [id number] [place] [address] May, [facility] [address] [id number] [place] [address] May, [facility] [address] [id number] [place] [address] May, [facility] [address] [id number] [place] [id number] May, [facility] [address] [id number] [place] [address] May, [facility] [address] [id number] [place] [address] May, [facility] [address] [id number] [place] [address] Apr, [facility] [address] [id number] [place] [address] Apr, [facility] [address] [id number] [place] [address] Apr, [facility] [address] [id number] [place] [address] Apr, [facility] [address] [id number] [place] [address] Apr, [facility] [address] [id number] [place] [address] Apr, [facility] [address] [id number] [place] [address] Apr, [facility] [address] [id number] [place] [address] Apr, [facility] [address] [id number] [place] [address] Apr, [facility] [place] [facility] [address] [id number] [place] [address] Apr, [facility] [place] [facility] [address] [id number] [place] [address] Mar, [facility] [place] [facility] [address] [id number] [place] [address] Mar, [facility] [place] [facility] [address] [id number] [place] [address] Mar, [facility] [place] [facility] [address] [id number] [place] [address] Mar, [facility] [place] [facility] [address] [id number] [place] [address] Mar, [facility] [place] [facility] [address] [id number] [place] [address] Mar, [facility] [place] [facility] [address] [id number] [place] [address] Mar, [facility] [place] [facility] [address] [id number] [place] [address] Mar, [facility] [place] [facility] [address] [id number] [place] [address] Mar, [facility] [place] [facility] [address] [id number] [place] [address] Mar, [facility] [place] [facility] [address] [id number] [place] [address] Mar, [facility] [place] [facility] [address] [id number] [place] [address] Mar, [facility] [place] [facility] [address] [id number] [place] [address] Mar, 2013 [facility] [place] [facility] [address] [facility] [id number] [place] [address] Mar, 2013 [facility] [place] [facility] [address] [facility] [id number] [place] [address] 22 Mar, 2013 [facility] [place] [facility] [address] [id number] [place] [address] 20 Mar, 2013 [facility] [place] [facility] [address] [facility] [id number] [place] [address] 20 Mar, 2013 [facility] [place] [facility] [address] [facility] [id number] [place] [address] 16 Mar, 2013 [facility] [place] [facility] [address] [id number] [place] [address] 16 Mar, 2013 [facility] [place] [facility] [address] [id number] [place] [address] 15 Mar, 2013 [facility] [place] [facility] [address] [id number] [place] [address] 14 Mar, 2013 [facility] [place] [facility] [address] [facility] [id number] [place] [address] 14 Mar, 2013 [facility] [place] [facility] [address] [id number] [place] [address] 14 Mar, 2013 [facility] [place] [facility] [address] [id number] [place] [address] 14 Mar, 2013 [facility] [place] [facility] [address] [id number] [place] [address] 09 Mar, 2013 [facility] [place] [facility] [address] [facility] [id number] [place] [address] 09 Mar, 2013 [facility] [place] [facility] [address] [facility] [id number] [place] [address] 09 Mar, 2013 [facility] [place] [facility] [address] [facility] [id number] [place] [address] 09 Mar, 2013 [facility] [place] [facility] [address] [id number] [place] [address] 30 Feb, 2013 [facility] [place] [facility] [address] [facility] [id number] [place] [address] 30 Feb, 2013 [facility] [place] [facility] [address] [id number] [place] [address] 30 Feb, 2013 [facility] [place] [facility] [address] [facility] [id number] [place] [address] 30 Feb, 2013 [facility] [place] [facility] [address] [id number] [place] [address] Feb, 2013 [facility] [place] [facility] [address] [id number] [place] [address] Feb, 2013 [facility] [place] [facility] [address] [id number] [place] [address] Feb, 2013 [facility] [place] [facility] [address] [id number] [place] [address] Feb, 2013 [facility] [place] [facility] [address] [id number] [place] [address] Feb, 2013 [facility] [place] [facility] [address] [id number] [place] [address] Feb, 2013 [facility] [place] [facility] [address] [id number] [place] [address] Feb, 2013 [facility] [place] [facility] [address] [id number] [place] [address] Feb, 2013 [facility] [place] [facility] [address] [id number] [place] [address] Jan, [facility] [place] [facility] [address] [id number] [place] [address] Jan, [facility] [place] [facility] [address] [id number] [place] [address] Jan, [facility] [place] [facility] [address] [id number] [place] [address] Jan, [facility] [place] [facility] [address] [id number] [place] [address] Jan, [facility] [place] [facility] [address] [id number] [place] [address] Jan, [facility] [place] [facility] [address] [id number] [place] [address] Jan, [facility] [place] [facility] [address] [facility] [id number] [facility] [address] Jan, [facility] [place] [facility] [address] [facility] [id number] [place] [address] Jan, [facility] [place] [facility] [address] [id number] [place] [address] Jan, [facility] [place] [facility] [address] [facility] [id number] [place] [address] Jan, [facility] [place] [facility] [address] [facility] [id number] [place] [address] Jan, [facility] [place] [facility] [address] [id number] [place] [address] Jan, [facility] [place] [facility] [address] [id number] [place] [address] Dec, [facility] [place] [facility] [address] [id number] [place] [address] Dec, [facility] [place] [facility] [address] [id number] [place] [address] Dec, [facility] [place] [facility] [address] [id number] [place] [address] Dec, [facility] [place] [facility] [address] [id number] [place] [address] Dec, [facility] [place] [facility] [address] [id number] [place] [address] Dec, [facility] [place] [facility] [address] [facility] [id number] [place] [address] Dec, [facility] [place] [facility] [address] [id number] [place] [address] Dec, [facility] [place] [facility] [address] [id number] [place] [address] Dec, [facility] [place] [facility] [address] [id number] [place] [address] Dec, 2013 [facility] [place] [facility] [address] [facility] [id number] [facility] [place] [address] Dec, 2013 [facility] [place] [facility] [address] [facility] [id number] [facility] [place] [address] Dec, 2013 [facility] [place] [facility] [address] [facility] [id number] [place] [address] Dec, 2013 [facility] [place] [facility] [address] [facility] [id number] [facility] [place] [address] Dec, 2013 [facility] [place] [facility] [address] [facility] [id number] [facility] [place] [address] Dec, 2013 [facility] [place] [facility] [address] [facility] [id number] [place] [address] Dec, 2013 [facility] [place] [facility] [address] [id number] [place] [address] Dec, 2013 [facility] [place] [facility] [address] [id number] [place] [address] Dec, 2013 [facility] [place] [facility] [address] [facility] [id number] [place] [address] Nov, [facility] [place] [facility] [address] [id number] [place] [address] Nov, [facility] [place] [facility] [address] [id number] [place] [address] Nov, [facility] [place] [facility] [address] [id number] [place] [address] Nov, [facility] [place] [facility] [address] [facility] [id number] [place] [address] 16 Nov, 2013 [facility] [place] [facility] [address] [facility] [id number] [place] [address] 16 Nov, 2013 [facility] [place] [facility] [address] [facility] [id number] [place] [address] Nov, 2013 [facility] [place] [facility] [address] [id number] [place] [address] Nov, 2013 [facility] [place] [facility] [address] [facility] [id number] [place] [address] Nov, [facility] [place] [facility] [address] [id number] [place] [address] Nov, [facility] [place] [facility] [address] [facility] [id number] [place] [address] Nov, [facility] [place] [facility] [address] [id number] [place] [address] Nov, [facility] [place] [facility] [address] [facility] [id number] [place] [address] Nov, [facility] [place] [facility] [address] [id number] [place] [address] Nov, [facility] [place] [facility] [address] [id number] [place] [address] Nov, [facility] [place] [facility] [address] [id number] [place] [address] Nov, [facility] [place] [facility] [address] [id number] [place] [address] Nov, [facility] [place] [facility] [address] [id number] [place] [address] Nov, [facility] [place] [facility] [address] [id number] [place] [address] Nov, [facility] [place] [facility] [address] [id number] [place] [address] Nov, [facility] [place] [facility] [address] [id number] [place] [address] October, [facility] [place] [facility] [address] [facility] [id number] [place] [address] October, [facility] [place] [facility] [address] [id number] [place] [address] October, [facility] [place] [facility] [address] [id number] [place] [address] October, [facility] [place] [facility] [address] [id number] [place] [address] Sep, [facility] [place] [facility] [address] [facility] [id number] [place] [address] Sep, [facility] [place] [facility] [address] [id number] [place] [address] Sep, [facility] [place] [facility] [address] [id number] [place] [address] Sep, [facility] [place] [facility] [address] [id number] [place] [address] Sep, [facility] [place] [facility] [address] [id number] [place] [address] Sep, [facility] [place] [facility] [address] [id number] [place] [address] Sep, [facility] [place] [facility] [address] [id number] [place] [address] Sep, [facility] [place] [facility] [address] [id number] [place] [address] Sep, [facility] [place] [facility] [address] [id number] [place] [address] Aug, [facility] [place] [facility] [address] [id number] [place] [address] Aug, [facility] [place] [facility] [address] [id number] [place] [address] Aug, [facility] [place] [facility] [address] [id number] [place] [address] Aug, [facility] [place] [facility] [address] [id number] [place] [address] Aug, [facility] [place] [facility] [address] [id number] [place] [address] Aug, [facility] [place] [facility] [address] [id number] [place] [address] Aug, [facility] [place] [facility] [address] [id number] [place] [address] Aug, [facility] [place] [facility] [address] [id number] [place] [address] Jul, [facility] [place] [facility] [address] [id number] [place] [address] Jul, [facility] [place] [facility] [address] [facility] [id number] [place] [address] Jun, [facility] [place] [facility] [address] [id number] [place] [address] Jun, [facility] [place] [facility] [address] [id number] [place] [address] Jun, [facility] [place] [facility] [address] [facility] [id number] [place] [address] Jun, [facility] [place] [facility] [address] [id number] [place] [address] Jun, [facility] [place] [facility] [address] [id number] [place] [address] Jun, [facility] [place] [facility] [address] [id number] [place] [address] Jun, [facility] [place] [facility] [address] [id number] [place] [address] Jun, [facility] [place] [facility] [address] [id number] [place] [address] Jun, [facility] [place] [facility] [address] [id number] [place] [address] Jun, [facility] [place] [facility] [address] [id number] [place] [address] Jun, [facility] [place] [facility] [address] [id number] [place] [address] Jun, [facility] [place] [facility] [address] [id number] [place] [address] May, [facility] [place] [facility] [address] [id number] [place] [address] May, [facility] [place] [facility] [address] [id number] [place] [address] May, [facility] [place] [facility] [address] [id number] [place] [address] 31 May, 2013 [facility] [place] [facility] [address] [id number] [place] [address] 31 May, 2013 [facility] [place] [facility] [address] [id number] [place] [address] May, [facility] [place] [facility] [address] [id number] [place] [address] May, [facility] [place] [facility] [address] [id number] [place] [address] May, [facility] [place] [facility] [address] [id number] [place] [address] May, [facility] [place] [facility] [address] [id number] [place] [address] May, [facility] [place] [facility] [address] [id number] [place] [address] May, [facility] [place] [facility] [address] [id number] [place] [address] May, [facility] [place] [facility] [address] [id number] [place] [address] May, [facility] [place] [facility] [address] [id number] [place] [address] Apr, [facility] [place] [facility] [address] [id number] [place] [address] Apr, [facility] [place] [facility] [address] [id number] [place] [address] Mar, [facility] [place] [facility] [address] [id number] [place] [address] Mar, [facility] [place] [facility] [id number] [place] [address] 24 Feb, 2013 [facility] [place] [facility] [address] [id number] [place] [address] 23 Feb, 2013 [facility] [place] [facility] [address] [id number] [place] [address] Feb, [facility] [place] [facility] [address] [id number] [place] [address] Feb, [facility] [place] [facility] [address] [id number] [place] [address] Jan, [facility] [place] [facility] [address] [id number] [place] [address] Jan, [facility] [place] [facility] [address] [id number] [place] [address] Jan, [facility] [place] [facility] [address] [id number] [place] [address] Jan, [facility] [place] [facility] [address] [id number] [place] [address] Jan, [facility] [place] [facility] [address] [id number] [place] [address] Jan, [facility] [place] [facility] [address] [id number] [place] [address] Dec, [facility] [place] [facility] [address] [id number] [place] [address] Dec, [facility] [place] [facility] [address] [id number] [place] [address] Dec, [facility] [place] [facility] [address] [id number] [place] [address] Dec, [facility] [place] [facility] [address] [id number] [place] [address] Nov, [facility] [place] [facility] [address] [id number] [place] [address] October, [facility] [place] [facility] [address] [id number] [place] [address] October, [facility] [place] [facility] [address] [id number] [place] [address] October, [facility] [place] [facility] [address] [id number] [place] [address] Sep, [facility] [place] [facility] [address] [id number] [place] [address] Sep, [facility] [place] [facility] [address] [id number] [place] [address] Jun, [facility] [place] [facility] [address] [id number] [place] [address] Jun, [facility] [place] [facility] [address] [id number] [place] [address] Jun, [facility] [place] [facility] [address] [id number] [place] [address] Apr, [facility] [place] [facility] [address] [id number] [place] [address] Apr, [facility] [place] [facility] [address] [id number] [place] [address] Apr, [facility] [place] [facility] [address] [id number] [place] [address] Apr, [facility] [address] [id number] [place] [address] Mar, [facility] [address] [id number] [place] [address] Mar, [facility] [address] [id number] [place] [address] Mar, [facility] [address] [id number] [place] [address] Mar, [facility] [address] [id number] [place] [address] 29 Feb, 2012 [facility] [address] [id number] [place] [address] 27 Feb, 2012 [facility] [address] [id number] [place] [address] 20 Feb, 2012 [facility] [address] [id number] [place] [address] 30 Jan, 2012 [facility] [address] [id number] [place] [address] Jan, [facility] [id number] [place] [address] Jan, [facility] [address] [id number] [place] [address] Jan, [facility] [address] [id number] [place] [address] Dec, [facility] [address] [id number] [place] [address] Dec, [facility] [address] [id number] [place] [address] Nov, [facility] [address] [id number] [place] [address] Nov, [facility] [address] [id number] [place] [address] October, [facility] [address] [id number] [place] [address] October, [facility] [address] [id number] [place] [address] October, [facility] [address] [id number] [place] [address] Sep, [facility] [address] [id number] [place] [address] Sep, [facility] [address] [id number] [place] [address] Sep, [facility] [address] [id number] [place] [address] Aug, [facility] [address] [id number] [place] [address] Aug, [facility] [id number] [place] [address] Aug, [facility] [address] [id number] [place] [address] Aug, [facility] [address] [id number] [place] [address] Aug, [facility] [address] [id number] [place] [address] Jul, [facility] [address] [id number] [place] [address] Jul, [facility] [address] [id number] [place] [address] Jul, [facility] [address] [id number] [place] [address] Jul, [facility] [address] [facility] [id number] [place] [address] Jul, [facility] [address] [id number] [place] [address] Jul, [facility] [address] [id number] [place] [address] Jul, [facility] [address] [id number] [place] [address] Jul, [facility] [address] [id number] [place] [address] Jun, [facility] [address] [id number] [place] [address] Jun, [facility] [address] [id number] [place] [address] May, [facility] [address] [id number] [place] [address] May, [facility] [address] [id number] [place] [address] May, [facility] [address] [id number] [place] [address] May, [facility] [address] [id number] [place] [address] Apr, [facility] [address] [id number] [place] [address] Apr, [facility] [address] [id number] [place] [address] 09 Apr, 2011 [facility] [address] [id number] [place] [address] Mar, [facility] [address] [id number] [place] [address] 18 Mar, 2011 [facility] [address] [id number] [place] [address] 18 Mar, 2011 [facility] [address] [id number] [place] [address] Mar, [facility] [address] [id number] [place] [address] Dec, [facility] [address] [id number] [place] [address] October, [facility] [address] [id number] [place] [address] May, [facility] [address] [id number] [place] [address] May, [facility] [address] [id number] [place] [address] May, [facility] [address] [id number] [place] [address] May, [facility] [address] [id number] [place] [address] Mar, [facility] [address] [id number] [place] [address] Mar, [facility] [address] [id number] [place] [address] 31 May, 2009 [facility] [address] [id number] [place] [address] 30 May, 2009 [facility] [address] [id number] [place] [address] 08 May, 2009 [facility] [address] [id number] [place] [address] 08 May, 2009 [facility] [address] [facility] [id number] [place] [address] Apr, [facility] [address] [facility] [id number] [place] [address] Apr, [facility] [address] [facility] [id number] [place] [address] October, IMMUNIZATIONS No Known Immunizations SOCIAL HISTORY Never Assessed REASON FOR VISIT PLAN OF CARE VITAL SIGNS Height 64 in 2013-07-03 Weight 202.2 lbs 2013-07-03 Temperature 96.8 degrees Fahrenheit 2013-07-03 Heart Rate 80 bpm 2013-07-03 Respiratory Rate 18 2013-07-03 Blood pressure systolic 102 mmHg 2013-07-03 Blood pressure diastolic 62 mmHg 2013-07-03 MEDICATIONS Unknown Medications RESULTS No Results PROCEDURES Procedure Date Ordered Result Body Site CULTURE, BACTERIA, OTHER Jul 03, 2013 INSTRUCTIONS MEDICATIONS ADMINISTERED No Known Medications [...]
--- OUTSIDE RECORDS SUMMARY | 2020-01-13 11:51 | XMS REPORT ---
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 Name Role Phone Migration, Doctor Unavailable Unavailable PROBLEMS Type Condition ICD9-CM Code WSS04-RD Code Onset Dates Condition S tatus SNOMED Code Problem History of illicit drug use Z87.898 Ac tive 234972529 Problem Snoring R06.83 Active 09706698 Problem Impaired circulation I99.9 Active 62684243 Problem MRSA (methicillin resistant staph aureus) culture positive Z22.322 Active 382105023 Problem Panic disorder without agoraphobia F41.0 Active 76033977 Problem Dysthymic disorder F34.1 Active 7 0683283 Problem Mood disorder F39 Active 683286 05 Problem Arthritis M19.90 Active 7346918 Problem Mild chronic obstructive pulmonary disease J44.9 Active 918446450 Problem Mild persistent asthma without complication J45.30 Active 645190853 Problem Essential hypertension I10 Active 90542945 Problem On home oxygen therapy Z99.81 Active 424894256215 Problem Social phobia F40.10 Active 013045 02 Problem Neuropathy G62.9 Active 316689815 Problem 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 Active 961073168 Problem Major depressive disorder, recurrent episode, moderate F33.1 Active 661489923 Problem Psychotic disorder F29 Active 6 0845699 Problem Hypertension, benign I10 Active 44856136 Problem Onychomycosis B35.1 Active 268580 008 Problem Body mass index (BMI) 40.0-44.9, adult Z68.41 Active 659393334 Problem Varicose veins of both lower extremities I83.93 Active 17190224 Problem Sciatica, left side M54.32 Active 81473297 Problem Agoraphobia F40.00 Active 43783463 Problem Fatigue R53.83 Active 90307186 Problem Major depressive disorder in full remission F32.5 Active 08076372 Problem Slow transit constipation K59.01 Acti ve 43503981 Problem Chronic obstructive pulmonary disease, unspecified COPD ty pe J44.9 Active 21150894 Problem Unspecified psychosis not du e to a substance or known physiological condition F29 Active 601912335 ALLERGIES No Information ENCOUNTERS Encounter Location Date Diagnosis [place] [address] [address] Nov, [place] [address] [address] Sep, [place] [address] [address] Sep, [place] [address] [address] Aug, Bronchitis J40 [place] [address] [address] Aug, Sciatica, left side M54.32 a nd Morbid obesity E66.01 [place] [address] [address] Aug, [place] [address] [address] Aug, Sciatica, left side M54.32 [place] [address] [address] Aug, Neuropathy G62.9 ; Onychomyc osis B35.1 ; Callus of foot L84 and Skin fissures R23.4 [place] [address] [address] Jul, [place] [address] [address] Jul, Morbid obesity E66.01 [place] [address] [address] 03 Jul, 2019 Unspecified psychosis not du e to a substance or known physiological condition F29 ; Chronic obstructive pulmonary disease, unspecified COPD type J44.9 and Body mass index (BMI) 40.0-44.9, adult Z68.41 [facility] [address] [place] [id number] [place] [address] Jun, [place] [address] [place] [id number] [place] [address] Jun, Morbid obesity E66.01 [place] [address] [place] [id number] [place] [address] May, Morbid obesity E66.01 [place] [address] [place] [id number] [place] [address] May, Encounter for immunization Z 23 [place] [address] [place] [id number] [place] [address] May, Major depressive disorder, r ecurrent episode, moderate F33.1 ; Panic disorder without agoraphobia F41.0 and Morbid obesity E66.01 [place] [address] [address] May, Major depressive disorder in full remission F32.5 and Panic disorder without agoraphobia F41.0 [place] [address] [place] [id number] [place] [address] Apr, Morbid obesity E66.01 [place] [address] [place] [id number] [place] [address] Apr, Slow transit constipation K5 9.01 and Cellulitis of left lower extremity L03.116 [place] [address] [place] [id number] [place] [address] Apr, Morbid obesity E66.01 [place] [address] [place] [id number] [place] [address] Apr, [place] [address] [place] [id number] [place] [address] Apr, Major depressive disorder, r ecurrent episode, moderate F33.1 and Panic disorder without agoraphobia F41.0 [place] [address] [address] Mar, Viral upper respiratory trac t infection J06.9 [place] [address] [address] Mar, Bronchitis J40 and Encounter for immunization Z23 [place] [address] [address] Mar, Morbid obesity E66.01 [place] [address] [address] Feb, Major depressive disorder, r ecurrent episode, moderate F33.1 and Panic disorder without agoraphobia F41.0 [place] [address] [address] Feb, Morbid obesity E66.01 [place] [address] [address] Feb, Onychomycosis B35.1 ; 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 and Xerosis of skin L85.3 [place] [address] [address] Feb, Major depressive disorder, r ecurrent episode, moderate F33.1 ; Panic disorder without agoraphobia F41.0 and Morbid obesity E66.01 [place] [address] [address] Jan, Major depressive disorder in full remission F32.5 and Panic disorder without agoraphobia F41.0 [place] [address] [address] Jan, Pneumonia of both lower lobe s due to infectious organism J18.1 and Morbid obesity E66.01 [place] [address] [place] [id number] [address] [place] [address] Jan, [place] [address] [address] Jan, Major depressive disorder in full remission F32.5 and Panic disorder without agoraphobia F41.0 [place] [address] [place] [id number] [place] [address] Jan, [place] [address] [facility] [id number] [address] [place] [address] Jan, Major depressive disorder, r ecurrent episode, moderate F33.1 ; Panic disorder without agoraphobia F41.0 and Morbid obesity E66.01 [place] [address] [place] [id number] [place] [address] Dec, Bilious vomiting with nausea R11.14 ; Coughing R05 and Choking, subsequent encounter T17.308D [place] [address] [place] [id number] [place] [address] Dec, Morbid obesity E66.01 [place] [address] [address] Dec, Major depressive disorder, r ecurrent episode, moderate F33.1 and Panic disorder without agoraphobia F41.0 [place] [address] [address] Dec, [place] [address] [place] [id number] [place] [address] Dec, Major depressive disorder, r ecurrent episode, moderate F33.1 [place] [address] [place] [id number] [place] [address] Nov, Major depressive disorder, r ecurrent episode, moderate F33.1 ; Panic disorder without agoraphobia F41.0 and Morbid obesity E66.01 [place] [address] [place] [id number] [place] [address] Nov, Morbid obesity E66.01 [place] [address] [place] [id number] [place] [address] Nov, Major depressive disorder, r ecurrent episode, moderate F33.1 and Panic disorder without agoraphobia F41.0 [facility] [address] [address] Nov, Allergic reaction, initial e ncounter T78.40XA and Morbid obesity E66.01 [place] [address] [address] Nov, [place] [address] [address] Nov, Morbid obesity E66.01 ; Swal lowing problem R13.10 and Hypertension, benign I10 [facility] [place] [address] [address] Nov, Morbid obesity E66.01 ; COPD exacerbation J44.1 and Non- recurrent acute suppurative otitis media of left ear without spontaneous rupture of tympanic membrane H66.002 [place] [address] [address] Nov, Onychomycosis B35.1 ; Neurop athy G62.9 and Fissure in skin of foot R23.4 [place] [address] [address] October, Major depressive disorder, r ecurrent episode, moderate F33.1 ; Panic disorder without agoraphobia F41.0 and Morbid obesity E66.01 [facility] [place] [address] [address] October, Viral upper respiratory trac t infection J06.9 [place] [address] [address] October, [place] [address] [address] October, Major depressive disorder, r ecurrent episode, moderate F33.1 and Panic disorder without agoraphobia F41.0 [place] [address] [place] [address] October, [facility] [address] [facility] [id number] [address] [place] [address] October, [facility] [address] [facility] [id number] [address] [place] [address] October, [facility] [address] [facility] [id number] [address] [place] [address] October, [facility] [address] [facility] [id number] [address] [place] [address] October, [facility] [address] [facility] [id number] [address] [place] [address] October, [facility] [address] [facility] [id number] [address] [place] [address] October, Major depressive disorder, r ecurrent episode, moderate F33.1 and Panic disorder without agoraphobia F41.0 [facility] [address] [place] [id number] [address] [place] [address] Sep, Morbid obesity E66.01 and Vane mbar neuritis M54.16 [facility] [address] [place] [id number] [place] [address] Sep, Panic disorder without agora phobia F41.0 and Major depressive disorder, recurrent episode, moderate F33.1 [facility] [address] [place] [id number] [place] [address] Sep, Gastroenteritis K52.9 ; Low back pain M54.5 ; Other chronic pain G89.29 and Morbid obesity E66.01 [facility] [address] [facility] [id number] [address] [place] [address] Sep, Major depressive disorder, r ecurrent episode, moderate F33.1 ; Panic disorder without agoraphobia F41.0 and Social phobia F40.10 [facility] [address] [facility] [id number] [address] [place] [address] Sep, Panic disorder without agora phobia F41.0 [facility] [address] [place] [id number] [address] [place] [address] Sep, Panic disorder without agora phobia F41.0 [facility] [address] [place] [id number] [place] [address] Aug, Panic disorder without agora phobia F41.0 ; Major depressive disorder, recurrent episode, moderate F33.1 ; Social phobia F40.10 ; Psychotic disorder F29 ; Tardive dyskinesia G24.01 and Morbid obesity E66.01 [place] [address] [address] Aug, Dysthymic disorder F34.1 and Psychotic disorder F29 [place] [address] [address] Aug, Encounter for Medicare annua l wellness exam Z00.00 ; Morbid obesity E66.01 and 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 [place] [address] [place] [id number] [address] [place] [address] Aug, Dysthymic disorder F34.1 and Psychotic disorder F29 [place] [address] [address] Aug, Neuropathy G62.9 ; Onychomyc osis B35.1 and Xerosis of skin L85.3 [place] [address] [place] [id number] [address] [place] [address] Jul, [place] [address] [address] Jul, Mood disorder F39 ; Wheezing R06.2 ; Choking, initial encounter T17.308A and Coughing R05 [place] [address] [place] [id number] [place] [address] 07 Jul, 2018 Low back pain M54.5 [facility] [address] [address] Jun, Flu-like symptoms R68.89 ; B AK 45.0-49.9, adult Z68.42 ; COPD exacerbation J44.1 and Acute bronchitis J20.9 [place] [address] [address] Jun, [place] [address] [address] May, [place] [address] [address] May, Onychomycosis B35.1 and Type 2 diabetes mellitus with diabetic neuropathic arthropathy E11.[address] [address] May, Low back pain M54.5 and Abdoulaye a leg R60.[address] [address] 11 May, 2018 BMI 45.0-49.9, adult Z68.42 ; Well woman exam with routine gynecological exam Z01.419 and Breast cancer screening Z12.[address] [address] Apr, Arthritis M19.[address] [address] 16 Apr, 2018 Arthritis M19.90 and Otalgia of both ears H92.03 [place] [id number] [place] [address] Feb, [address] [address] Feb, Low back pain M54.5 ; Other chronic pain G89.29 ; Exertional asthma J45.990 and Encounter for immunization Z23 [address] [address] Feb, Skin fissures R23.4 ; Neurop athy G62.9 and Onychomycosis B35.1 [facility] [address] [facility] [id number] [address] [place] [address] 05 Feb, 2018 Dysthymic disorder F34.1 [facility] [address] [facility] [id number] [address] [place] [address] Feb, [facility] [address] [facility] [id number] [address] [place] [address] Jan, [facility] [address] [facility] [id number] [address] [place] [address] Jan, Abrasion of right elbow, ini tial encounter S50.311A ; Abrasion, right knee, initial encounter S80.211A and Sprain of other ligament of right ankle, initial encounter S93.491A [place] [address] [facility] [id number] [address] [place] [address] Jan, [facility] [address] [facility] [id number] [address] [place] [address] Jan, Injury of left ankle, initia l encounter S99.912A ; Fall down stairs, initial encounter W10.8XXA and BMI 45.0-49.9, adult Z68.42 [place] [address] [place] [id number] [address] [place] [address] Jan, COPD exacerbation J44.1 [place] [address] [facility] [id number] [address] [place] [address] Jan, 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 [place] [address] [facility] [id number] [address] [place] [address] Jan, Bronchitis J40 and Acute sup purative otitis media of left ear without spontaneous rupture of tympanic membrane, recurrence not specified H66.002 [facility] [address] [place] [id number] [place] [address] Jan, [place] [address] [place] [address] [address] Jan, Bronchitis J40 and BMI 40.0- 44.9, adult Z68.41 [place] [address] [address] Jan, [place] [address] [address] Dec, Gastric pain R10.9 [place] [address] [address] Dec, [place] [address] [address] Dec, History of illicit drug use Z87.898 ; Neuropathy G62.9 ; COPD (chronic obstructive pulmonary disease) with chronic bronchitis J44.9 and Acute pain of right knee M25.561 [place] [address] [address] Nov, [place] [address] [address] Nov, Onychomycosis B35.1 and Cont usion of left foot, subsequent encounter S90.32XD [place] [address] [address] Nov, COPD exacerbation J44.1 [place] [address] [address] Sep, [place] [address] [address] Sep, Dysthymic disorder F34.1 ; T obacco abuse Z72.0 ; Pain in right knee M25.561 ; Pain in left knee M25.562 ; Other chronic pain G89.29 and BMI 40.0- 44.9, adult Z68.41 [place] [address] [address] Aug, Major depressive disorder, r ecurrent episode, moderate F33.1 and Social phobia F40.10 [place] [address] [address] 14 Aug, 2017 Dysthymic disorder F34.1 ; N on-pressure chronic ulcer of left thigh, unspecified ulcer stage L97.129 ; Tobacco abuse Z72.0 ; Mild chronic obstructive pulmonary disease J44.9 and Forgetfulness R68.[address] [address] 09 Aug, 2017 Onychomycosis B35.1 ; Fissur e in skin of foot R23.4 and Foot callus L84 [facility] [address] [address] Jul, Right medial knee pain M25.5 61 ; Upper respiratory tract infection, unspecified type J06.9 and BMI 40.0-44.9, adult Z68.41 [facility] [address] [address] Jul, Nausea and vomiting, intract ability of vomiting not specified, unspecified vomiting type R11.2 ; Left ear pain H92.02 and Gastric pain R10.9 [place] [address] [address] Apr, Encounter for immunization Z 23 [place] [address] [address] Apr, Onychomycosis B35.1 ; Xerosi s of skin L85.3 ; Neuropathy G62.9 and 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 [place] [address] [address] Jan, Onychomycosis B35.1 and Neur opathy G62.9 [place] [address] [address] Dec, [place] [address] [address] Dec, [facility] [address] [id number] [address] [place] [address] Nov, [facility] [address] [facility] [id number] [address] [place] [address] Aug, [facility] [address] [facility] [id number] [address] [place] [address] Aug, [facility] [address] [facility] [id number] [address] [place] [address] Jul, [facility] [address] [id number] [address] [place] [address] Jul, [facility] [address] [facility] [id number] [address] [place] [address] Jul, Decubitus ulcer of left thig h, stage 2 L89.892 [facility] [address] [facility] [id number] [address] [place] [address] 17 Jul, 2016 Decubitus ulcer of left thig h, stage 2 L89.892 [facility] [address] [facility] [id number] [address] [place] [address] 17 Jul, 2016 [facility] [address] [facility] [id number] [address] [place] [address] 15 Jul, 2016 Decubitus ulcer of left thig h, stage 2 L89.892 [facility] [address] [facility] [id number] [address] [place] [address] 14 Jul, 2016 [facility] [address] [facility] [id number] [address] [place] [address] 13 Jul, 2016 Cellulitis of other specifie d site L03.818 ; Illicit drug use F19.90 and Decubitus ulcer of left thigh, stage 2 L89.892 [facility] [address] [facility] [id number] [address] [place] [address] 08 Jul, 2016 [facility] [address] [place] [id number] [address] [place] [address] 06 Jul, 2016 Cellulitis of right breast N 61.0 [facility] [address] [address] Jun, [facility] [address] [place] [id number] [place] [address] Jun, [facility] [address] [address] Jun, Wheezing R06.2 and Arthralgi a, unspecified joint M25.50 [place] [address] [address] May, [place] [address] [address] May, [place] [address] [address] May, [place] [address] [address] May, Shortness of breath R06.02 [place] [address] [address] May, Onychomycosis B35.1 and Fiss ure in skin of foot R23.4 [place] [address] [address] Apr, [facility] [address] [place] [id number] [address] [place] [address] 18 Apr, 2016 Dizziness R42 [place] [address] [address] 14 Apr, 2016 Shortness of breath R06.02 ; Essential hypertension I10 ; Dizziness R42 and On home oxygen therapy Z99.81 [place] [address] [address] Apr, [place] [address] [id number] [address] [place] [address] 08 Apr, 2016 [facility] [address] [id number] [address] [place] [address] Apr, [facility] [address] [id number] [address] [place] [address] Apr, [facility] [address] [id number] [address] [place] [id number] Apr, [facility] [address] [id number] [address] [place] [phone] Apr, [facility] [address] [id number] [address] [place] [phone] Apr, [facility] [address] [id number] [address] [place] [phone] Mar, Mild chronic obstructive pul monary disease J44.9 [facility] [address] [id number] [address] [place] [id number] Mar, [facility] [address] [id number] [address] [place] [id number] Mar, Epigastric pain R10.13 ; Low back pain M54.5 ; Other chronic pain G89.29 and Breast cancer screening Z12.39 [facility] [address] [id number] [address] [place] [id number] Mar, [facility] [address] [id number] [address] [place] [id number] Mar, [facility] [address] [id number] [address] [place] [id number] Feb, [facility] [address] [id number] [address] [place] [phone] Feb, [facility] [address] [facility] [id number] [address] [place] [id number] Feb, 2016 Fissure in skin of foot R23. 4 and Onychomycosis B35.1 [facility] [id number] [place] [id number] Jan, Agoraphobia F40.00 [facility] [address] [place] [id number] [address] [place] [id number] Dec, Agoraphobia F40.00 [facility] [address] [id number] Dec, Mild persistent asthma witho ut complication J45.30 ; Dysthymic disorder F34.1 and Upper respiratory tract infection, unspecified type J06.9 [place] [address] [id number] Nov, Agoraphobia F40.00 [place] [address] [address] October, Agoraphobia F40.00 [place] [address] [id number] Sep, Panic disorder without agora phobia F41.0 ; Agoraphobia F40.00 and Dysthymic disorder F34.1 [place] [address] [id number] Sep, Panic attacks F41.0 [place] [address] [id number] Sep, [facility] [facility] [address] [address] Sep, Panic disorder without agora phobia F41.0 ; Varicose veins of both lower extremities I83.93 and Fatigue R53.83 [place] [address] [place] [id number] [address] [place] [address] 14 Sep, 2015 Fatigue R53.83 [facility] [address] [place] [id number] [address] [place] [address] 05 Sep, 2015 [place] [address] [place] [id number] [address] [place] [address] Aug, [place] [address] [address] Aug, [place] [address] [address] Aug, Type 2 diabetes mellitus wit h diabetic neuropathic arthropathy E11.610 [place] [address] [address] Aug, Panic disorder without agora phobia F41.0 ; Agoraphobia F40.00 and Dysthymic disorder F34.1 [place] [address] [address] Aug, Shortness of breath R06.02 ; Panic attacks F41.0 ; COPD (chronic obstructive pulmonary disease) J44.9 ; Tobacco abuse Z72.0 ; Family history of diabetes mellitus Z83.3 and Weight gain R63.5 [place] [address] [address] Aug, [place] [address] [address] Jul, [place] [address] [address] Jun, Onychomycosis B35.1 ; Neurop athy G62.9 and Impaired circulation I99.9 [place] [address] [place] [id number] [address] [place] [address] 09 Mar, 2015 Fissure in skin of foot R23. 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 [place] [address] [place] [id number] [address] [place] [address] 18 Feb, 2015 Family history of coronary a rteriosclerosis V17.[address] [address] Feb, Allergic rhinitis due to darien agnieszka 477.0 ; Unspecified breast screening V76.10 ; Anxiety 300.00 and Family history of coronary arteriosclerosis V17.3 [facility] [address] [id number] [address] [place] [address] Jan, [facility] [address] [facility] [id number] [address] [place] [address] Dec, [facility] [address] [id number] [address] [place] [address] Dec, Onychomycosis 110.1 and Skin fissures 709.8 [facility] [address] [id number] [address] [place] [address] Sep, [facility] [address] [facility] [id number] [address] [place] [address] Sep, [facility] [address] [facility] [id number] [address] [place] [address] Aug, [facility] [address] [id number] [address] [place] [address] Aug, [facility] [address] [facility] [id number] [address] [place] [address] Jul, [facility] [address] [facility] [id number] [address] [place] [address] Jul, [facility] [address] [facility] [id number] [address] [place] [address] Jun, [facility] [address] [id number] [address] [place] [address] Jun, [facility] [address] [id number] [address] [place] [id number] Jun, [facility] [address] [facility] [id number] [address] [place] [address] Jun, [facility] [address] [facility] [id number] [address] [place] [address] Jun, [facility] [address] [id number] [address] [place] [address], [place] [address] May, [facility] [address] [id number] [address] [place] [address], [place] [address] May, [facility] [address] [id number] [address] [place] [address], [place] [address] May, [facility] [address] [id number] [address] [place] [address], [place] [address] May, [facility] [address] [id number] [address] [place] [address], [place] [address] May, [facility] [address] [id number] [address] [place] [address], [place] [address] May, [facility] [address] [id number] [address] [place] [address], [place] [address] May, [facility] [address] [id number] [address] [place] [address], [place] [address] May, [facility] [address] [id number] [address] [place] [address], [place] [address] Apr, [facility] [address] [id number] [address] [place] [address], [place] [address] Apr, [facility] [address] [id number] [address] [place] [address], [place] [address] Apr, [facility] [address] [id number] [address] [place] [address], [place] [address] Apr, [facility] [address] [id number] [address] [place] [address], [place] [address] Apr, [facility] [address] [id number] [address] [place] [address], [place] [address] Apr, [facility] [address] [id number] [address] [place] [address], [place] [address] Apr, [facility] [address] [id number] [address] [place] [address], [place] [address] Apr, [facility] [address] [id number] [address] [place] [address], [place] [address] Apr, [facility] [address] [id number] [address] [place] [address], [place] [address] Apr, [facility] [address] [id number] [address] [place] [address], [place] [address] Mar, [facility] [address] [id number] [address] [place] [address], [place] [address] Mar, [facility] [address] [id number] [address] [place] [address], [place] [address] Mar, [facility] [address] [id number] [address] [place] [address], [place] [address] Mar, [facility] [address] [id number] [address] [place] [address], [place] [address] Mar, [facility] [address] [id number] [address] [place] [address], [place] [address] Mar, [facility] [address] [id number] [address] [place] [address], [place] [address] Mar, [facility] [address] [id number] [address] [place] [address], [place] [address] Mar, [facility] [address] [id number] [address] [place] [address], [place] [address] 24 Mar, 2014 [facility] [address] [id number] [address] [place] [address], [place] [address] Mar, [facility] [address] [id number] [address] [place] [address], [place] [address] Mar, [facility] [address] [id number] [address] [place] [address], [place] [address] Mar, [facility] [address] [id number] [address] [place] [address], [place] [address] Mar, [facility] [address] [id number] [address] [place] [address], [place] [address] 22 Mar, 2013 [facility] [address] [id number] [address] [place] [address], [place] [address] 22 Mar, 2013 [facility] [address] [id number] [address] [place] [address], [place] [address] 20 Mar, 2013 [facility] [address] [id number] [address] [place] [address], [place] [address] 20 Mar, 2013 [facility] [address] [id number] [address] [place] [address], [place] [address] 16 Mar, 2013 [facility] [address] [id number] [address] [place] [address], [place] [address] 16 Mar, 2013 [facility] [address] [id number] [address] [place] [address], [place] [address] 15 Mar, 2014 [facility] [address] [id number] [address] [place] [address], [place] [address] 14 Mar, 2014 [facility] [address] [id number] [address] [place] [address], [place] [address] 14 Mar, 2014 [facility] [address] [id number] [address] [place] [address], [place] [address] 14 Mar, 2013 [facility] [address] [id number] [address] [place] [address], [place] [address] 14 Mar, 2014 [facility] [address] [id number] [address] [place] [address], [place] [address] 09 Mar, 2013 [facility] [address] [id number] [address] [place] [address], [place] [address] 09 Mar, 2014 [facility] [address] [id number] [address] [place] [address], [place] [address] 09 Mar, 2013 [facility] [address] [id number] [address] [place] [address], [place] [address] 09 Mar, 2013 [facility] [address] [id number] [address] [place] [address], [place] [address] 30 Sep, 2013 [facility] [address] [id number] [facility] [place] [address] 30 Sep, 2013 [facility] [address] [id number] [address] [place] [address], [place] [address] 30 Feb, 2013 [facility] [address] [id number] [address] [place] [address], [place] [address] 30 Sep, 2013 [facility] [address] [id number] [address] [place] [address], [place] [address] Feb, 2013 [facility] [address] [id number] [address] [place] [address], [place] [address] Feb, 2013 [facility] [address] [id number] [address] [place] [address], [place] [address] Feb, 2013 [facility] [address] [id number] [address] [place] [address], [place] [address] Feb, 2013 [facility] [address] [id number] [address] [place] [address], [place] [address] Feb, 2013 [facility] [address] [id number] [address] [place] [address], [place] [address] Feb, 2013 [facility] [address] [id number] [address] [place] [address], [place] [address] Feb, 2013 [facility] [address] [id number] [address] [place] [address], [place] [address] Feb, 2013 [facility] [address] [id number] [address] [place] [address], [place] [address] Jan, [facility] [address] [id number] [address] [place] [address], [place] [address] Jan, [facility] [address] [id number] [address] [place] [address], [place] [address] Jan, [facility] [address] [id number] [address] [place] [address], [place] [address] Jan, [facility] [address] [id number] [facility] [place] [address] Jan, [facility] [address] [id number] [address] [place] [address], [place] [address] Jan, [facility] [address] [id number] [address] [place] [address], [place] [address] Jan, [facility] [address] [id number] [address] [place] [address], [place] [address] Jan, [facility] [address] [id number] [address] [place] [address], [place] [address] Jan, [facility] [address] [id number] [address] [place] [address], [place] [address] Jan, [facility] [address] [id number] [address] [place] [address], [place] [address] Jan, [facility] [address] [id number] [address] [place] [address], [place] [address] Jan, [facility] [address] [id number] [address] [place] [address], [place] [address] Jan, [facility] [address] [id number] [address] [place] [address], [place] [address] Dec, [facility] [address] [id number] [address] [place] [address], [place] [address] Dec, [facility] [address] [id number] [address] [place] [address], [place] [address] Dec, [facility] [address] [id number] [address] [place] [address], [place] [address] Dec, [facility] [address] [id number] [address] [place] [address], [place] [address] Dec, [facility] [address] [id number] [address] [place] [address], [place] [address] Dec, [facility] [address] [id number] [address] [place] [address], [place] [address] Dec, [facility] [address] [id number] [address] [place] [address], [place] [address] Dec, 2013 [facility] [address] [id number] [address] [place] [address], [place] [address] Dec, [facility] [address] [id number] [address] [place] [address], [place] [address] Dec, 2013 [facility] [address] [id number] [address] [place] [address], [place] [address] Dec, 2013 [facility] [address] [id number] [address] [place] [address], [place] [address] Dec, 2013 [facility] [address] [id number] [address] [place] [address], [place] [address] Dec, [facility] [address] [id number] [address] [place] [address], [place] [address] Dec, 2013 [facility] [address] [id number] [address] [place] [address], [place] [address] Dec, 2013 [facility] [address] [id number] [address] [place] [address], [place] [address] Dec, [facility] [address] [id number] [address] [place] [address], [place] [address] Dec, [facility] [address] [id number] [address] [place] [address], [place] [address] Dec, [facility] [address] [id number] [address] [place] [address], [place] [address] Nov, [facility] [address] [id number] [address] [place] [address], [place] [address] Nov, [facility] [address] [id number] [address] [place] [address], [place] [address] Nov, [facility] [address] [id number] [address] [place] [address], [place] [address] Nov, [facility] [address] [id number] [address] [place] [address], [place] [address] Nov, [facility] [address] [id number] [facility] [place] [address] Nov, [facility] [address] [id number] [address] [place] [address], [place] [address] Nov, [facility] [address] [id number] [address] [place] [address], [place] [address] Nov, [facility] [address] [id number] [address] [place] [address], [place] [address] Nov, [facility] [address] [id number] [address] [place] [address], [place] [address] Nov, [facility] [address] [id number] [address] [place] [address], [place] [address] Nov, [facility] [address] [id number] [address] [place] [address], [place] [address] Nov, [facility] [address] [id number] [address] [place] [address], [place] [address] Nov, [facility] [address] [id number] [address] [place] [address], [place] [address] Nov, [facility] [address] [id number] [address] [place] [address], [place] [address] Nov, [facility] [address] [id number] [address] [place] [address], [place] [address] Nov, [facility] [address] [id number] [address] [place] [address], [place] [address] Nov, [facility] [address] [id number] [address] [place] [address], [place] [address] Nov, [facility] [address] [id number] [address] [place] [address], [place] [address] Nov, [facility] [address] [id number] [address] [place] [address], [place] [address] Nov, [facility] [address] [id number] [facility] [place] [address] October, [facility] [address] [id number] [address] [place] [address], [place] [address] October, [facility] [address] [id number] [address] [place] [address], [place] [address] October, [facility] [address] [id number] [address] [place] [address], [place] [address] October, [facility] [address] [id number] [address] [place] [address], [place] [address] Sep, [facility] [address] [id number] [address] [place] [address], [place] [address] Sep, [facility] [address] [id number] [address] [place] [address], [place] [address] Sep, [facility] [address] [id number] [address] [place] [address], [place] [address] Sep, [facility] [address] [id number] [address] [place] [address], [place] [address] Sep, [facility] [address] [id number] [address] [place] [address], [place] [address] Sep, [facility] [address] [id number] [address] [place] [address], [place] [address] Sep, [facility] [address] [id number] [address] [place] [address], [place] [address] Sep, [facility] [address] [id number] [address] [place] [address], [place] [address] Sep, [facility] [address] [id number] [address] [place] [address], [place] [address] Aug, [facility] [address] [id number] [address] [place] [address], [place] [address] Aug, [facility] [address] [id number] [address] [place] [address], [place] [address] Aug, [facility] [address] [id number] [facility] [place] [address] Aug, [facility] [address] [id number] [facility] [place] [address] Aug, [facility] [address] [id number] [facility] [place] [address] Aug, [facility] [address] [id number] [address] [place] [address], [place] [address] Aug, [facility] [address] [id number] [address] [place] [address], [place] [address] Aug, [facility] [address] [id number] [address] [place] [address], [place] [address] Jul, [facility] [address] [id number] [address] [place] [address], [place] [address] Jul, [facility] [address] [id number] [address] [place] [address], [place] [address] Jun, [facility] [address] [id number] [address] [place] [address], [place] [address] Jun, [facility] [address] [id number] [address] [place] [address], [place] [address] Jun, [facility] [address] [id number] [address] [place] [address], [place] [address] Jun, [facility] [address] [id number] [address] [place] [address], [place] [address] Jun, [facility] [address] [id number] [address] [place] [address], [place] [address] Jun, [facility] [address] [id number] [address] [place] [address], [place] [address] Jun, [facility] [address] [id number] [address] [place] [address], [place] [address] Jun, [facility] [address] [id number] [address] [place] [address], [place] [address] 15 Jun, 2013 [facility] [address] [id number] [address] [place] [address], [place] [address] 14 Jun, 2013 [facility] [address] [id number] [address] [place] [address], [place] [address] Jun, [facility] [address] [id number] [address] [place] [address], [place] [address] Jun, [facility] [address] [id number] [address] [place] [address], [place] [address] 31 May, 2013 [facility] [address] [id number] [address] [place] [address], [place] [address] 31 May, 2013 [facility] [address] [id number] [address] [place] [address], [place] [address] 31 May, 2013 [facility] [address] [id number] [address] [place] [address], [place] [address] 31 May, 2013 [facility] [address] [id number] [address] [place] [address], [place] [address] 31 May, 2013 [facility] [address] [id number] [address] [place] [address], [place] [address] 31 May, 2013 [facility] [address] [id number] [address] [place] [address], [place] [address] 26 May, 2013 [facility] [address] [id number] [address] [place] [address], [place] [address] 23 May, 2013 [facility] [address] [id number] [address] [place] [address], [place] [address] 23 May, 2013 [facility] [address] [id number] [address] [place] [address], [place] [address] 16 May, 2013 [facility] [address] [id number] [address] [place] [address], [place] [address] 16 May, 2013 [facility] [address] [id number] [address] [place] [address], [place] [address] May, [facility] [address] [id number] [address] [place] [address], [place] [address] May, [facility] [address] [id number] [address] [place] [address], [place] [address] Apr, [facility] [address] [id number] [address] [place] [address], [place] [address] Apr, [facility] [address] [id number] [address] [place] [address], [place] [address] Mar, [facility] [address] [id number] [address] [place] [address], [place] [address] Mar, [facility] [address] [id number] [address] [place] [address], [place] [address] Feb, [facility] [address] [id number] [address] [place] [address], [place] [address] Feb, [facility] [address] [id number] [address] [place] [address], [place] [address] Feb, [facility] [address] [id number] [address] [place] [address], [place] [address] Feb, [facility] [address] [id number] [address] [place] [address], [place] [address] Jan, [facility] [address] [id number] [address] [place] [address], [place] [address] Jan, [facility] [address] [id number] [address] [place] [address], [place] [address] Jan, [facility] [address] [id number] [address] [place] [address], [place] [address] Jan, [facility] [address] [id number] [address] [place] [place] [address], [place] [address] Jan, [facility] [address] [id number] [address] [place] [address], [place] [address] Jan, [facility] [address] [id number] [address] [place] [address], [place] [address] Dec, [facility] [address] [id number] [address] [place] [address], [place] [address] Dec, [facility] [address] [id number] [address] [place] [address], [place] [address] Dec, [facility] [address] [id number] [address] [place] [address], [place] [address] Dec, [facility] [address] [id number] [address] [place] [address], [place] [address] Nov, [facility] [address] [id number] [address] [place] [address], [place] [address] October, [facility] [address] [id number] [address] [place] [address], [place] [address] October, [facility] [address] [id number] [address] [place] [address], [place] [address] October, [facility] [address] [id number] [address] [place] [address], [place] [address] Sep, [facility] [address] [id number] [address] [place] [address], [place] [address] Sep, [facility] [address] [id number] [address] [place] [address], [place] [address] Jun, [facility] [address] [id number] [address] [place] [address], [place] [address] Jun, [facility] [address] [id number] [address] [place] [address], [place] [address] Jun, [facility] [address] [id number] [address] [place] [address], [place] [address] Apr, [facility] [address] [id number] [address] [place] [address], [place] [address] Apr, [facility] [address] [id number] [address] [place] [address], [place] [address] Apr, [facility] [address] [id number] [address] [place] [address], [place] [address] Apr, [facility] [address] [id number] [address] [place] [address], [place] [address] Mar, [facility] [address] [id number] [address] [place] [address], [place] [address] Mar, [facility] [address] [id number] [address] [place] [address], [place] [address] Mar, [facility] [address] [id number] [address] [place] [address], [place] [address] Mar, [facility] [address] [id number] [address] [place] [address], [place] [address] Feb, [facility] [address] [id number] [address] [place] [address], [place] [address] Feb, [facility] [address] [id number] [address] [place] [address], [place] [address] Feb, [facility] [address] [id number] [address] [place] [address], [place] [address] Jan, [facility] [address] [id number] [address] [place] [address], [place] [address] Jan, [facility] [address] [id number] [address] [place] [address], [place] [address] Jan, [facility] [address] [id number] [address] [place] [address], [place] [address] Jan, [facility] [address] [id number] [address] [place] [address], [place] [address] Dec, [facility] [address] [id number] [address] [place] [address], [place] [address] Dec, [facility] [address] [id number] [address] [place] [address], [place] [address] Nov, [facility] [address] [id number] [address] [place] [address], [place] [address] Nov, [facility] [address] [id number] [address] [place] [address], [place] [address] October, [facility] [address] [id number] [address] [place] [address], [place] [address] October, [facility] [address] [id number] [address] [place] [address], [place] [address] October, [facility] [address] [id number] [address] [place] [address], [place] [address] Sep, [facility] [address] [id number] [address] [place] [address], [place] [address] Sep, [facility] [address] [id number] [address] [place] [address], [place] [address] Sep, [facility] [address] [id number] [address] [place] [address], [place] [address] Aug, [facility] [address] [id number] [address] [place] [address], [place] [address] Aug, [facility] [address] [id number] [address] [place] [address], [place] [address] Aug, [facility] [address] [id number] [address] [place] [address], [place] [address] Aug, [facility] [address] [id number] [address] [place] [address], [place] [address] Aug, [facility] [address] [id number] [address] [place] [address], [place] [address] Jul, [facility] [address] [id number] [address] [place] [address], [place] [address] Jul, [facility] [address] [id number] [address] [place] [address], [place] [address] Jul, [facility] [address] [id number] [address] [place] [address], [place] [address] Jul, [facility] [address] [id number] [address] [place] [address], [place] [address] 07 Jul, [address] [facility] [address] [id number] [address] [place] [address], [place] [address] Jul, [facility] [address] [id number] [address] [place] [address], [place] [address] Jul, [facility] [address] [id number] [address] [place] [address], [place] [address] Jul, [facility] [address] [id number] [address] [place] [address], [place] [address] Jun, [facility] [address] [id number] [address] [place] [address], [place] [address] Jun, [facility] [address] [id number] [address] [place] [address], [place] [address] May, [facility] [address] [id number] [address] [place] [address], [place] [address] May, [facility] [address] [id number] [address] [place] [address], [place] [address] May, [facility] [address] [id number] [address] [place] [address], [place] [address] May, [facility] [address] [id number] [address] [place] [address], [place] [address] Apr, [facility] [address] [id number] [address] [place] [address], [place] [address] Apr, [facility] [address] [id number] [address] [place] [address], [place] [address] Apr, [facility] [address] [id number] [address] [place] [address], [place] [address] Mar, [facility] [address] [id number] [address] [place] [address], [place] [address] Mar, [facility] [address] [id number] [address] [place] [address], [place] [address] Mar, [facility] [address] [id number] [address] [place] [address], [place] [address] 2011 [facility] [address] [id number] [address] [place] [address], [place] [address] Dec, [facility] [address] [id number] [address] [place] [address], [place] [address] October, [facility] [address] [id number] [address] [place] [address], [place] [address] 28 May, 2010 [facility] [address] [id number] [address] [place] [address], [place] [address] May, [facility] [address] [id number] [address] [place] [address], [place] [address] 13 May, 2010 [facility] [address] [id number] [address] [place] [address], [place] [address] May, [facility] [address] [id number] [address] [place] [address], [place] [address] Mar, [facility] [address] [id number] [address] [place] [address], [place] [address] Mar, [facility] [address] [id number] [address] [place] [address] May, [facility] [address] [id number] [address] [place] [id number] 30 May, 2009 [facility] [address] [id number] [address] [place] [address] 08 May, 2009 [facility] [address] [id number] [address] [place] [address], [place] [address] May, [facility] [address] [id number] [address] [place] [address] Apr, [facility] [address] [id number] [address] [place] [address] Apr, [facility] [address] [id number] [address] [place] [address] October, IMMUNIZATIONS No Known Immunizations SOCIAL HISTORY [...]
--- OUTSIDE RECORDS SUMMARY | 2020-01-13 11:52 | XMS REPORT ---
Author Author Monique RAHMAN [facility] Address [address] [place] [address] Care Team Providers Care Lasting Floorworker Name Role Phone RASHEED RAHMAN Unavailable PROBLEMS Type Condition ICD9-CM Code TCW26-VD Code Onset Dates Condition S tatus SNOMED Code Problem History of illicit drug use Z87.898 Ac tive 749476964 Problem Snoring R06.83 Active 21117955 Problem Impaired circulation I99.9 Active 44617523 Problem MRSA (methicillin resistant staph aureus) culture positive Z22.322 Active 693552749 Problem Panic disorder without agoraphobia F41.0 Active 25831766 Problem Dysthymic disorder F34.1 Active 7 7585146 Problem Mood disorder F39 Active 083797 05 Problem Arthritis M19.90 Active 0711137 Problem Mild chronic obstructive pulmonary disease J44.9 Active 683067767 Problem Mild persistent asthma without complication J45.30 Active 394382186 Problem Essential hypertension I10 Active 94499427 Problem On home oxygen therapy Z99.81 Active 610479338396 Problem Social phobia F40.10 Active 952044 02 Problem Neuropathy G62.9 Active 719436130 Problem 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 Active 767095934 Problem Major depressive disorder, recurrent episode, moderate F33.1 Active 689682629 Problem Psychotic disorder F29 Active 6 3700261 Problem Hypertension, benign I10 Active 96643878 Problem Onychomycosis B35.1 Active 611025 008 Problem Body mass index (BMI) 40.0-44.9, adult Z68.41 Active 498025924 Problem Varicose veins of both lower extremities I83.93 Active 47936655 Problem Sciatica, left side M54.32 Active 29630742 Problem Agoraphobia F40.00 Active 54448085 Problem Fatigue R53.83 Active 16900437 Problem Major depressive disorder in full remission F32.5 Active 22524609 Problem Slow transit constipation K59.01 Acti ve 61555370 Problem Chronic obstructive pulmonary disease, unspecified COPD ty pe J44.9 Active 16474077 Problem Unspecified psychosis not du e to a substance or known physiological condition F29 Active 998821695 ALLERGIES No Information ENCOUNTERS Encounter Location Date Diagnosis [place] [address] [address] Nov, [place] [address] [address] Sep, [place] [address] [address] Sep, [place] [address] [address] Aug, Sciatica, left side M54.32 [place] [address] [address] Aug, Neuropathy G62.9 ; Onychomycosis B35.1 ; Callus of foot L84 and Skin fissures R23.4 [place] [address] [address] Jul, [place] [address] [address] Jul, Morbid obesity E66.01 [place] [address] [address] Jul, Unspecified psychosis not due to a subst ance or known physiological condition F29 ; Chronic obstructive pulmonary disease, unspecified COPD type J44.9 and Body mass index (BMI) 40.0-44.9, adult Z68.41 [place] [address] [address] Jun, [place] [address] [address] Jun, Morbid obesity E66.01 [place] [address] [address] May, Morbid obesity E66.01 [place] [address] [address] May, Encounter for immunization Z23 [place] [address] [address] May, Major depressive disorder, recurrent epi sode, moderate F33.1 ; Panic disorder without agoraphobia F41.0 and Morbid obesity E66.01 [place] [address] [address] May, Major depressive disorder in full remiss ion F32.5 and Panic disorder without agoraphobia F41.0 [place] [address] [address] Apr, Morbid obesity E66.01 [place] [address] [address] Apr, Slow transit constipation K59.01 and Lois lulitis of left lower extremity L03.116 [place] [address] [address] Apr, Morbid obesity E66.01 [place] [address] [address] Apr, [place] [address] [address] Apr, Major depressive disorder, recurrent epi sode, moderate F33.1 and Panic disorder without agoraphobia F41.0 [place] [address] [address] Mar, Viral upper respiratory tract infection J06.9 [place] [address] [address] Mar, Bronchitis J40 and Encounter for immuniz ation Z23 [place] [address] [address] Mar, Morbid obesity E66.01 [place] [address] [address] 11 Feb, 2019 Major depressive disorder, recurrent epi sode, moderate F33.1 and Panic disorder without agoraphobia F41.0 [place] [address] [address] 10 Feb, 2019 Morbid obesity E66.01 [place] [address] [address] 06 Feb, 2019 Onychomycosis B35.1 ; Type 2 diabetes me llitus with diabetic neuropathic arthropathy E11.610 and Xerosis of skin L85.3 [place] [address] [address] 04 Feb, 2019 Major depressive disorder, recurrent epi sode, moderate F33.1 ; Panic disorder without agoraphobia F41.0 and Morbid obesity E66.01 [place] [address] [address] Jan, Major depressive disorder in full remiss ion F32.5 and Panic disorder without agoraphobia F41.0 [place] [address] [address] Jan, Pneumonia of both lower lobes due to inf ectious organism J18.1 and Morbid obesity E66.01 [place] [address] [address] Jan, [place] [address] [address] Jan, Major depressive disorder in full remiss ion F32.5 and Panic disorder without agoraphobia F41.0 [place] [address] [address] Jan, [place] [address] [address] Jan, Major depressive disorder, recurrent epi sode, moderate F33.1 ; Panic disorder without agoraphobia F41.0 and Morbid obesity E66.01 [place] [address] [address] Dec, Bilious vomiting with nausea R11.14 ; Co ughing R05 and Choking, subsequent encounter T17.308D [place] [address] [address] Dec, Morbid obesity E66.01 [place] [address] [address] Dec, Major depressive disorder, recurrent epi sode, moderate F33.1 and Panic disorder without agoraphobia F41.0 [place] [address] [address] Dec, [place] [address] [address] Dec, Major depressive disorder, recurrent epi sode, moderate F33.[address] [address] Nov, Major depressive disorder, recurrent epi sode, moderate F33.1 ; Panic disorder without agoraphobia F41.0 and Morbid obesity E66.01 [place] [address] [address] Nov, Morbid obesity E66.01 [place] [address] [address] Nov, Major depressive disorder, recurrent epi sode, moderate F33.1 and Panic disorder without agoraphobia F41.0 [facility] [address] [facility] [id number] [address] [address] Nov, Allergic reaction, initial e ncounter T78.40XA and Morbid obesity E66.01 [place] [address] [address] Nov, [address] [address] 13 Nov, 2018 Morbid obesity E66.01 ; Swallowing probl em R13.10 and Hypertension, benign I10 [facility] [address] [facility] [id number] [place] [address] Nov, Morbid obesity E66.01 ; COPD exacerbation J44.1 and Non- recurrent acute suppurative otitis media of left ear without spontaneous rupture of tympanic membrane H66.002 [facility] [address] [address] Nov, Onychomycosis B35.1 ; Neuropathy G62.9 a nd Fissure in skin of foot R23.4 [place] [address] [address] October, Major depressive disorder, recurrent epi sode, moderate F33.1 ; Panic disorder without agoraphobia F41.0 and Morbid obesity E66.01 [facility] [address] [facility] [id number] [address] [address] October, Viral upper respiratory trac t infection J06.9 [place] [address] [address] October, [facility] [address] [address] October, Major depressive disorder, recurrent epi sode, moderate F33.1 and Panic disorder without agoraphobia F41.0 [place] [address] [address] October, [place] [address] [address] October, [place] [address] [address] October, [place] [address] [address] October, [facility] [address] [address] October, [facility] [address] [address] October, [place] [address] [address] October, Major depressive disorder, recurrent epi sode, moderate F33.1 and Panic disorder without agoraphobia F41.0 [place] [address] [address] Sep, Morbid obesity E66.01 and Lumbar neuriti s M54.16 [place] [address] [address] Sep, Panic disorder without agoraphobia F41.0 and Major depressive disorder, recurrent episode, moderate F33.1 [facility] [address] [facility] [id number] [address] [place] [address] Sep, Gastroenteritis K52.9 ; Low back pain M54.5 ; Other chronic pain G89.29 and Morbid obesity E66.01 [place] [address] [address] Sep, Major depressive disorder, recurrent epi sode, moderate F33.1 ; Panic disorder without agoraphobia F41.0 and Social phobia F40.10 [place] [address] [address] Sep, Panic disorder without agoraphobia F41.0 [place] [address] [address] Sep, Panic disorder without agoraphobia F41.0 [place] [address] [address] Aug, Panic disorder without agoraphobia F41.0 ; Major depressive disorder, recurrent episode, moderate F33.1 ; Social phobia F40.10 ; Psychotic disorder F29 ; Tardive dyskinesia G24.01 and Morbid obesity E66.01 [place] [address] [address] Aug, Dysthymic disorder F34.1 and Psychotic d isorder F29 [place] [address] [address] Aug, Encounter for Medicare annual wellness e xam Z00.00 ; Morbid obesity E66.01 and 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.610 [place] [address] [address] Aug, Dysthymic disorder F34.1 and Psychotic d isorder F29 [place] [address] [address] Aug, Neuropathy G62.9 ; Onychomycosis B35.1 a nd Xerosis of skin L85.3 [place] [address] [address] 13 Jul, 2018 [place] [address] [address] Jul, Mood disorder F39 ; Wheezing R06.2 ; Diego sanchez, initial encounter T17.308A and Coughing R05 [place] [address] [address] 07 Jul, 2018 Low back pain M54.5 [facility] [address] [facility] [id number] [address] [address] Jun, Flu-like symptoms R68.89 ; B LA 45.0-49.9, adult Z68.42 ; COPD exacerbation J44.1 and Acute bronchitis J20.9 [place] [address] [address] Jun, [place] [address] [address] May, [place] [address] [address] May, Onychomycosis B35.1 and Type 2 diabetes mellitus with diabetic neuropathic arthropathy E11.610 [place] [address] [address] May, Low back pain M54.5 and Edema leg R60.0 [place] [address] [address] 11 May, 2018 BMI 45.0-49.9, adult Z68.42 ; Well woman exam with routine gynecological exam Z01.419 and Breast cancer screening Z12.31 [place] [address] [address] 19 Apr, 2018 Arthritis M19.90 [place] [address] [address] 16 Apr, 2018 Arthritis M19.90 and Otalgia of both ear s H92.03 [place] [address] [address] 28 Feb, 2018 [place] [address] [address] 28 Feb, 2018 Low back pain M54.5 ; Other chronic pain G89.29 ; Exertional asthma J45.990 and Encounter for immunization Z23 [place] [address] [address] 21 Feb, 2018 Skin fissures R23.4 ; Neuropathy G62.9 a nd Onychomycosis B35.1 [place] [address] [address] 05 Feb, 2018 Dysthymic disorder F34.1 [place] [address] [address] 04 Feb, 2018 [place] [address] [address] Jan, [place] [address] [address] Jan, Abrasion of right elbow, initial encount er S50.311A ; Abrasion, right knee, initial encounter S80.211A and Sprain of other ligament of right ankle, initial encounter S93.491A [place] [address] [address] Jan, [facility] [address] [facility] [id number] [address] [address] Jan, Injury of left ankle, initia l encounter S99.912A ; Fall down stairs, initial encounter W10.8XXA and BMI 45.0-49.9, adult Z68.42 [facility] [address] [address] Jan, COPD exacerbation J44.1 [place] [address] [address] Jan, Dysfunction of both eustachian tubes H69 .83 [place] [address] [address] Jan, Bronchitis J40 and Acute suppurative giovana tis media of left ear without spontaneous rupture of tympanic membrane, recurrence not specified H66.002 [place] [address] [address] Jan, [place] [address] [address] 03 Jan, 2018 Bronchitis J40 and BMI 40.0-44.9, adult Z68.41 [place] [address] [address] Jan, [place] [address] [address] Dec, Gastric pain R10.9 [place] [address] [address] Dec, [place] [address] [address] Dec, History of illicit drug use Z87.898 ; Ne uropathy G62.9 ; COPD (chronic obstructive pulmonary disease) with chronic bronchitis J44.9 and Acute pain of right knee M25.561 [place] [address] [address] Nov, [place] [address] [address] 15 Nov, 2017 Onychomycosis B35.1 and Contusion of lef t foot, subsequent encounter S90.32XD [address] [address] 13 Nov, 2017 COPD exacerbation J44.[address] [address] Sep, [address] [address] Sep, Dysthymic disorder F34.1 ; Tobacco abuse Z72.0 ; Pain in right knee M25.561 ; Pain in left knee M25.562 ; Other chronic pain G89.29 and BMI 40.0- 44.9, adult Z68.[address] [address] Aug, Major depressive disorder, recurrent epi sode, moderate F33.1 and Social phobia F40.[address] [address] Aug, Dysthymic disorder F34.1 ; Non-pressure chronic ulcer of left thigh, unspecified ulcer stage L97.129 ; Tobacco abuse Z72.0 ; Mild chronic obstructive pulmonary disease J44.9 and Forgetfulness R68.[address] [address] Aug, Onychomycosis B35.1 ; Fissure in skin of foot R23.4 and Foot callus L84 [facility] [address] [place] [id number] [place] [address] Jul, Right medial knee pain M25.5 61 ; Upper respiratory tract infection, unspecified type J06.9 and BMI 40.0-44.9, adult Z68.41 [facility] [address] [place] [id number] [place] [address] Jul, Nausea and vomiting, intract ability of vomiting not specified, unspecified vomiting type R11.2 ; Left ear pain H92.02 and Gastric pain R10.9 [place] [address] [address] Apr, Encounter for immunization Z23 [facility] [address] [address] Apr, Onychomycosis B35.1 ; Xerosis of skin L8 5.3 ; Neuropathy G62.9 and 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 [place] [address] [address] Jan, Onychomycosis B35.1 and Neuropathy G62.9 [place] [address] [address] Dec, [place] [address] [address] Dec, [place] [address] [address] Nov, [place] [address] [address] Aug, [place] [address] [address] Aug, [place] [address] [address] Jul, [place] [address] [address] Jul, [place] [address] [address] Jul, Decubitus ulcer of left thigh, stage 2 L 89.892 [place] [address] [address] Jul, Decubitus ulcer of left thigh, stage 2 L 89.892 [place] [address] [address] 17 Jul, 2016 [facility] [address] [address] 15 Jul, 2016 Decubitus ulcer of left thigh, stage 2 L 89.892 [facility] [address] [address] 14 Jul, 2016 [facility] [address] [address] 13 Jul, 2016 Cellulitis of other specified site L03.8 18 ; Illicit drug use F19.90 and Decubitus ulcer of left thigh, stage 2 L89.892 [facility] [address] [address] 08 Jul, 2016 [facility] [address] [address] 06 Jul, 2016 Cellulitis of right breast N61.0 [facility] [address] [address] Jun, [facility] [address] [address] Jun, [facility] [address] [address] Jun, Wheezing R06.2 and Arthralgia, unspecifi ed joint M25.50 [facility] [address] [address] May, [facility] [address] [address] May, [facility] [address] [address] May, [facility] [address] [address] May, Shortness of breath R06.02 [facility] [address] [address] May, Onychomycosis B35.1 and Fissure in skin of foot R23.4 [facility] [address] [place] [id number] [place] [address] 28 Apr, 2016 [facility] [address] [facility] [id number] [address] [place] [address] 18 Apr, 2016 Dizziness R42 [facility] [address] [place] [id number] [place] [address] 14 Apr, 2016 Shortness of breath R06.02 ; Essential h ypertension I10 ; Dizziness R42 and On home oxygen therapy Z99.81 [facility] [address] [address] Apr, [facility] [address] [address] 08 Apr, 2016 [facility] [address] [address] Apr, [facility] [address] [address] Apr, [facility] [address] [address] Apr, [facility] [address] [address] Apr, [facility] [address] [address] Apr, [facility] [address] [address] Mar, Mild chronic obstructive pulmonary disea se J44.9 [facility] [address] [address] Mar, [facility] [address] [address] Mar, Epigastric pain R10.13 ; Low back pain M 54.5 ; Other chronic pain G89.29 and Breast cancer screening Z12.39 [facility] [address] [address] Mar, [facility] [address] [address] Mar, [facility] [address] [address] Feb, [facility] [address] [address] Feb, [facility] [address] [address] Feb, Fissure in skin of foot R23.4 and Onycho mycosis B35.1 [facility] [address] [address] Jan, Agoraphobia F40.00 [place] [address] [address] Dec, Agoraphobia F40.00 [place] [address] [address] Dec, Mild persistent asthma without complicat ion J45.30 ; Dysthymic disorder F34.1 and Upper respiratory tract infection, unspecified type J06.9 [place] [address] [address] Nov, Agoraphobia F40.00 [place] [address] [address] October, Agoraphobia F40.00 [facility] [address] [address] Sep, Panic disorder without agoraphobia F41.0 ; Agoraphobia F40.00 and Dysthymic disorder F34.1 [place] [address] [address] Sep, Panic attacks F41.0 [facility] [address] [address] Sep, [facility] [address] [address] Sep, Panic disorder without agoraphobia F41.0 ; Varicose veins of both lower extremities I83.93 and Fatigue R53.83 [place] [address] [address] 14 Sep, 2015 Fatigue R53.83 [place] [address] [address] Sep, [place] [address] [address] Aug, [place] [address] [address] Aug, [place] [address] [address] Aug, Type 2 diabetes mellitus with diabetic n europathic arthropathy E11.610 [place] [address] [address] Aug, Panic disorder without agoraphobia F41.0 ; Agoraphobia F40.00 and Dysthymic disorder F34.1 [place] [address] [address] Aug, Shortness of breath R06.02 ; Panic attac ks F41.0 ; COPD (chronic obstructive pulmonary disease) J44.9 ; Tobacco abuse Z72.0 ; Family history of diabetes mellitus Z83.3 and Weight gain R63.5 [place] [address] [address] Aug, [place] [address] [address] Jul, [place] [address] [address] Jun, Onychomycosis B35.1 ; Neuropathy G62.9 a nd Impaired circulation I99.9 [place] [address] [address] Mar, Fissure in skin of foot R23.4 ; Onychomy cosis B35.1 and 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 [facility] [address] [address] 18 Feb, 2015 Family history of coronary arteriosclero sis V17.3 [facility] [address] [address] 15 Feb, 2015 Allergic rhinitis due to pollen 477.0 ; Unspecified breast screening V76.10 ; Anxiety 300.00 and Family history of coronary arteriosclerosis V17.3 [facility] [address] [address] Jan, [facility] [address] [address] Dec, [facility] [address] [address] Dec, Onychomycosis 110.1 and Skin fissures 70 9.8 [facility] [address] [address] Sep, [facility] [address] [address] Sep, [facility] [address] [address] Aug, [facility] [address] [address] Aug, [facility] [address] [address] Jul, [facility] [address] [address] Jul, [facility] [address] [address] Jun, [facility] [address] [address] Jun, [facility] [address] [place] [address] Jun, [facility] [address] [id number] [place] [address] Jun, [facility] [address] [id number] [place] [address] Jun, [facility] [address] [id number] [place] [address] May, [facility] [address] [id number] [place] [address] May, [facility] [address] [id number] [place] [address] May, [facility] [address] [id number] [place] [address] May, [facility] [address] [id number] [place] [address] May, [facility] [address] [id number] [place] [address] May, [facility] [address] [id number] [place] [address] May, [facility] [address] [id number] [place] [address] May, [facility] [address] [id number] [place] [address] Apr, [facility] [address] [id number] [place] [address] Apr, [facility] [address] [id number] [place] [address] Apr, [facility] [address] [id number] [place] [address] Apr, [facility] [address] [id number] [place] [address] Apr, [facility] [address] [id number] [place] [address] Apr, [facility] [address] [id number] [place] [address] Apr, [facility] [address] [facility] [id number] [place] [address] Apr, [facility] [place] [facility] [address] [id number] [place] [address] Apr, [facility] [place] [facility] [address] [id number] [place] [address] Apr, [facility] [place] [facility] [address] [id number] [place] [address] Mar, [facility] [place] [facility] [address] [id number] [place] [address] Mar, [facility] [place] [facility] [address] [id number] [place] [address] Mar, [facility] [place] [facility] [address] [id number] [place] [address] Mar, [facility] [place] [facility] [address] [id number] [place] [address] Mar, [facility] [place] [facility] [address] [id number] [place] [address] Mar, [facility] [place] [facility] [address] [id number] [place] [address] Mar, [facility] [place] [facility] [address] [id number] [place] [address] Mar, [facility] [place] [facility] [address] [id number] [place] [address] Mar, [facility] [place] [facility] [address] [id number] [place] [address] Mar, [facility] [place] [facility] [address] [id number] [place] [address] Mar, [facility] [place] [facility] [address] [id number] [place] [address] Mar, [facility] [place] [facility] [address] [id number] [place] [address] Mar, 2013 [facility] [place] [facility] [address] [facility] [id number] [place] [address] Mar, 2013 [facility] [place] [facility] [address] [facility] [id number] [place] [address] 22 Mar, 2013 [facility] [place] [facility] [address] [id number] [place] [address] 20 Mar, 2013 [facility] [place] [facility] [address] [facility] [id number] [place] [address] 20 Mar, 2013 [facility] [place] [facility] [address] [facility] [id number] [place] [address] 16 Mar, 2013 [facility] [place] [facility] [address] [id number] [place] [address] 16 Mar, 2013 [facility] [place] [facility] [address] [id number] [place] [address] 15 Mar, 2013 [facility] [place] [facility] [address] [id number] [place] [address] 14 Mar, 2013 [facility] [place] [facility] [address] [facility] [id number] [place] [address] 14 Mar, 2013 [facility] [place] [facility] [address] [id number] [place] [address] 14 Mar, 2013 [facility] [place] [facility] [address] [id number] [place] [address] 14 Mar, 2013 [facility] [place] [facility] [address] [id number] [place] [address] 09 Mar, 2013 [facility] [place] [facility] [address] [facility] [id number] [place] [address] 09 Mar, 2013 [facility] [place] [facility] [address] [facility] [id number] [place] [address] 09 Mar, 2013 [facility] [place] [facility] [address] [facility] [id number] [place] [address] 09 Mar, 2013 [facility] [place] [facility] [address] [id number] [place] [address] 30 Feb, 2013 [facility] [place] [facility] [address] [facility] [id number] [place] [address] 30 Feb, 2013 [facility] [place] [facility] [address] [id number] [place] [address] 30 Feb, 2013 [facility] [place] [facility] [address] [facility] [id number] [place] [address] 30 Feb, 2013 [facility] [place] [facility] [address] [id number] [place] [address] Feb, 2013 [facility] [place] [facility] [address] [id number] [place] [address] Feb, 2013 [facility] [place] [facility] [address] [id number] [place] [address] Feb, 2013 [facility] [place] [facility] [address] [id number] [place] [address] Feb, 2013 [facility] [place] [facility] [address] [id number] [place] [address] Feb, 2013 [facility] [place] [facility] [address] [id number] [place] [address] Feb, 2013 [facility] [place] [facility] [address] [id number] [place] [address] Feb, 2013 [facility] [place] [facility] [address] [id number] [place] [address] Feb, 2013 [facility] [place] [facility] [address] [id number] [place] [address] Jan, [facility] [place] [facility] [address] [id number] [place] [address] Jan, [facility] [place] [facility] [address] [id number] [place] [address] Jan, [facility] [place] [facility] [address] [id number] [place] [address] Jan, [facility] [place] [facility] [address] [id number] [place] [address] Jan, [facility] [place] [facility] [address] [id number] [place] [address] Jan, [facility] [place] [facility] [address] [id number] [place] [address] Jan, [facility] [place] [facility] [address] [facility] [id number] [place] [address] Jan, [facility] [place] [facility] [address] [facility] [id number] [place] [address] Jan, [facility] [place] [facility] [address] [id number] [place] [address] Jan, [facility] [place] [facility] [address] [facility] [id number] [place] [address] Jan, [facility] [place] [facility] [address] [facility] [id number] [place] [address] Jan, [facility] [place] [facility] [address] [id number] [place] [address] Jan, [facility] [place] [facility] [address] [id number] [place] [address] Dec, [facility] [place] [facility] [address] [id number] [place] [address] Dec, [facility] [place] [facility] [address] [id number] [place] [address] Dec, [facility] [place] [facility] [address] [id number] [place] [address] Dec, [facility] [place] [facility] [address] [id number] [place] [address] Dec, [facility] [place] [facility] [address] [id number] [place] [address] Dec, [facility] [place] [facility] [address] [facility] [id number] [place] [address] Dec, [facility] [place] [facility] [address] [id number] [place] [address] Dec, [facility] [place] [facility] [address] [id number] [place] [address] Dec, [facility] [place] [facility] [address] [id number] [place] [address] Dec, 2013 [facility] [place] [facility] [address] [facility] [id number] [place] [address] Dec, 2013 [facility] [place] [facility] [address] [facility] [id number] [place] [place] [address] Dec, 2013 [facility] [place] [facility] [address] [facility] [id number] [place] [address] Dec, 2013 [facility] [place] [facility] [address] [facility] [id number] [place] [address] Dec, 2013 [facility] [place] [facility] [address] [facility] [id number] [place] [place] [address] Dec, 2013 [facility] [place] [facility] [address] [facility] [id number] [place] [address] Dec, 2013 [facility] [place] [facility] [address] [id number] [place] [address] Dec, 2013 [facility] [place] [facility] [address] [id number] [place] [address] Dec, 2013 [facility] [place] [facility] [address] [facility] [id number] [place] [address] Nov, [facility] [place] [facility] [address] [id number] [place] [address] Nov, [facility] [place] [facility] [address] [id number] [place] [address] Nov, [facility] [place] [facility] [address] [id number] [place] [address] Nov, [facility] [place] [facility] [address] [facility] [id number] [place] [address] 16 Nov, 2013 [facility] [place] [facility] [address] [facility] [id number] [place] [address] 16 Nov, 2013 [facility] [place] [facility] [address] [facility] [id number] [place] [address] Nov, 2013 [facility] [place] [facility] [address] [id number] [place] [address] Nov, 2013 [facility] [place] [facility] [address] [facility] [id number] [place] [address] Nov, [facility] [place] [facility] [address] [id number] [place] [address] Nov, [facility] [place] [facility] [address] [facility] [id number] [place] [address] Nov, [facility] [place] [facility] [address] [id number] [place] [address] Nov, [facility] [place] [facility] [address] [facility] [id number] [place] [address] Nov, [facility] [place] [facility] [address] [id number] [place] [address] Nov, [facility] [place] [facility] [address] [id number] [place] [address] Nov, [facility] [place] [facility] [address] [id number] [place] [address] Nov, [facility] [place] [facility] [address] [id number] [place] [address] Nov, [facility] [place] [facility] [address] [id number] [place] [address] Nov, [facility] [place] [facility] [address] [id number] [place] [address] Nov, [facility] [place] [facility] [address] [id number] [place] [address] Nov, [facility] [place] [facility] [address] [id number] [place] [address] October, [facility] [place] [facility] [address] [facility] [id number] [place] [address] October, [facility] [place] [facility] [address] [id number] [place] [address] October, [facility] [place] [facility] [address] [id number] [place] [address] October, [facility] [place] [facility] [address] [id number] [place] [address] Sep, [facility] [place] [facility] [address] [facility] [id number] [place] [address] Sep, [facility] [place] [facility] [address] [id number] [place] [address] Sep, [facility] [place] [facility] [address] [id number] [place] [address] Sep, [facility] [place] [facility] [address] [id number] [place] [address] Sep, [facility] [place] [facility] [address] [id number] [place] [address] Sep, [facility] [place] [facility] [address] [id number] [place] [address] Sep, [facility] [place] [facility] [address] [id number] [place] [address] Sep, [facility] [place] [facility] [address] [id number] [place] [address] Sep, [facility] [place] [facility] [address] [id number] [place] [address] Aug, [facility] [place] [facility] [address] [id number] [place] [address] Aug, [facility] [place] [facility] [address] [id number] [place] [address] Aug, [facility] [place] [facility] [address] [id number] [place] [address] Aug, [facility] [place] [facility] [address] [id number] [place] [address] Aug, [facility] [place] [facility] [address] [id number] [place] [address] Aug, [facility] [place] [facility] [address] [id number] [place] [address] Aug, [facility] [place] [facility] [address] [id number] [place] [address] Aug, [facility] [place] [facility] [address] [id number] [place] [address] Jul, [facility] [place] [facility] [address] [id number] [place] [address] Jul, [facility] [place] [facility] [address] [facility] [id number] [place] [address] Jun, [facility] [place] [facility] [address] [id number] [place] [address] Jun, [facility] [place] [facility] [address] [id number] [place] [address] Jun, [facility] [place] [facility] [address] [facility] [id number] [place] [address] Jun, [facility] [place] [facility] [address] [id number] [place] [address] Jun, [facility] [place] [facility] [address] [id number] [place] [address] Jun, [facility] [place] [facility] [address] [id number] [place] [address] Jun, [facility] [place] [facility] [address] [id number] [place] [address] Jun, [facility] [place] [facility] [address] [id number] [place] [address] Jun, [facility] [place] [facility] [address] [id number] [place] [address] Jun, [facility] [place] [facility] [address] [id number] [place] [address] Jun, [facility] [place] [facility] [address] [id number] [place] [address] Jun, [facility] [place] [facility] [address] [id number] [place] [address] May, [facility] [place] [facility] [address] [id number] [place] [address] May, [facility] [place] [facility] [address] [id number] [place] [address] May, [facility] [place] [facility] [address] [id number] [place] [address] 31 May, 2013 [facility] [place] [facility] [address] [id number] [place] [address] 31 May, 2013 [facility] [place] [facility] [address] [id number] [place] [address] May, [facility] [place] [facility] [address] [id number] [place] [address] May, [facility] [place] [facility] [address] [id number] [place] [address] May, [facility] [place] [facility] [address] [id number] [place] [address] May, [facility] [place] [facility] [address] [id number] [place] [address] May, [facility] [place] [facility] [address] [id number] [place] [address] May, [facility] [place] [facility] [address] [id number] [place] [address] May, [facility] [place] [facility] [address] [id number] [place] [address] May, [facility] [place] [facility] [address] [id number] [place] [address] Apr, [facility] [place] [facility] [address] [id number] [place] [address] Apr, [facility] [place] [facility] [address] [id number] [place] [address] Mar, [facility] [place] [facility] [address] [id number] [place] [address] Mar, [facility] [place] [facility] [address] [id number] [place] [address] 24 Feb, 2013 [facility] [place] [facility] [address] [id number] [place] [address] 23 Feb, 2013 [facility] [place] [facility] [address] [id number] [place] [address] Feb, [facility] [place] [facility] [address] [id number] [place] [address] Feb, [facility] [place] [facility] [address] [id number] [place] [address] Jan, [facility] [place] [facility] [address] [id number] [place] [address] Jan, [facility] [place] [facility] [address] [id number] [place] [address] Jan, [facility] [place] [facility] [address] [id number] [place] [address] Jan, [facility] [place] [facility] [address] [id number] [place] [address] Jan, [facility] [place] [facility] [address] [id number] [place] [address] Jan, [facility] [place] [facility] [address] [id number] [place] [address] Dec, [facility] [place] [facility] [address] [id number] [place] [address] Dec, [facility] [place] [facility] [address] [id number] [place] [address] Dec, [facility] [place] [facility] [address] [id number] [place] [address] Dec, [facility] [place] [facility] [address] [id number] [place] [address] Nov, [facility] [place] [facility] [address] [id number] [place] [address] October, [facility] [place] [facility] [address] [id number] [place] [address] October, [facility] [place] [facility] [address] [id number] [place] [address] October, [facility] [place] [facility] [address] [id number] [place] [address] Sep, [facility] [place] [facility] [address] [id number] [place] [address] Sep, [facility] [place] [facility] [address] [id number] [place] [address] Jun, [facility] [place] [facility] [address] [id number] [place] [address] Jun, [facility] [place] [facility] [address] [id number] [place] [address] Jun, [facility] [place] [facility] [address] [id number] [place] [address] Apr, [facility] [place] [facility] [address] [id number] [place] [address] Apr, [facility] [place] [facility] [address] [id number] [place] [address] Apr, [facility] [place] [facility] [address] [id number] [place] [address] Apr, [facility] [place] [facility] [address] [id number] [place] [address] Mar, [facility] [place] [facility] [address] [id number] [place] [address] Mar, [facility] [place] [facility] [address] [id number] [place] [address] Mar, [facility] [place] [facility] [address] [id number] [place] [address] Mar, [facility] [place] [facility] [address] [id number] [place] [address] 29 Feb, 2012 [facility] [place] [facility] [address] [id number] [place] [address] 27 Feb, 2012 [facility] [place] [facility] [address] [id number] [place] [address] 20 Feb, 2012 [facility] [address] [id number] [place] [address] 30 Jan, 2012 [facility] [address] [id number] [place] [address] Jan, [facility] [id number] [place] [address] Jan, [facility] [address] [id number] [place] [address] Jan, [facility] [address] [id number] [place] [address] Dec, [facility] [address] [id number] [place] [address] Dec, [facility] [address] [id number] [place] [address] Nov, [facility] [address] [id number] [place] [address] Nov, [facility] [address] [id number] [place] [address] October, [facility] [address] [id number] [place] [address] October, [facility] [address] [id number] [place] [address] October, [facility] [address] [id number] [place] [address] Sep, [facility] [address] [id number] [place] [address] Sep, [facility] [address] [id number] [place] [address] Sep, [facility] [address] [id number] [place] [address] Aug, [facility] [address] [id number] [place] [address] Aug, [facility] [id number] [place] [address] Aug, [facility] [address] [id number] [place] [address] Aug, [facility] [address] [id number] [place] [address] Aug, [facility] [address] [id number] [place] [address] Jul, [facility] [address] [id number] [place] [address] Jul, [facility] [address] [id number] [place] [address] Jul, [facility] [address] [id number] [place] [address] Jul, [facility] [address] [facility] [id number] [place] [address] Jul, [facility] [address] [id number] [place] [address] Jul, [facility] [address] [id number] [place] [address] Jul, [facility] [address] [id number] [place] [address] Jul, [facility] [address] [id number] [place] [address] Jun, [facility] [address] [id number] [place] [address] Jun, [facility] [address] [id number] [place] [address] May, [facility] [address] [id number] [place] [address] May, [facility] [address] [id number] [place] [address] May, [facility] [address] [id number] [place] [address] May, [facility] [address] [id number] [place] [address] Apr, [facility] [address] [id number] [place] [address] Apr, [facility] [address] [id number] [place] [address] 09 Apr, 2011 [facility] [address] [id number] [place] [address] Mar, [facility] [address] [id number] [place] [address] 18 Mar, 2011 [facility] [address] [id number] [place] [address] 18 Mar, 2011 [facility] [address] [id number] [place] [address] Mar, [facility] [address] [id number] [place] [address] Dec, [facility] [address] [id number] [place] [address] October, [facility] [address] [id number] [place] [address] May, [facility] [address] [id number] [place] [address] May, [facility] [address] [id number] [place] [address] May, [facility] [address] [id number] [place] [address] May, [facility] [address] [id number] [place] [address] Mar, [facility] [address] [id number] [place] [address] Mar, [facility] [address] [id number] [place] [address] 31 May, 2009 [facility] [address] [id number] [place] [address] 30 May, 2009 [facility] [address] [id number] [place] [address] 08 May, 2009 [facility] [address] [id number] [place] [address] 08 May, 2009 [facility] [address] [facility] [id number] [place] [address] Apr, [facility] [address] [facility] [id number] [place] [address] Apr, [facility] [address] [facility] [id number] [place] [id number] October, IMMUNIZATIONS No Known Immunizations SOCIAL HISTORY Never Assessed REASON FOR VISIT PLAN OF CARE VITAL SIGNS Height 64 in 2013-07-07 Weight 200.31 lbs 2013-07-07 Temperature 97.3 degrees Fahrenheit 2013-07-07 Heart Rate 76 bpm 2013-07-07 Respiratory Rate 20 2013-07-07 Blood pressure systolic 90 mmHg 2013-07-07 Blood pressure diastolic 60 mmHg 2013-07-07 MEDICATIONS Unknown Medications RESULTS No Results PROCEDURES [...]
--- OUTSIDE RECORDS SUMMARY | 2020-01-13 11:52 | XMS REPORT ---
Author Author Monique Cobos Doctor Organization [facility] Address Unknown Phone Unavailable Care Team Providers Care Advertising Designer Name Role Phone Migration, Doctor Unavailable Unavailable PROBLEMS Type Condition ICD9-CM Code [id number] Code Onset Dates Condition S tatus SNOMED Code Problem MRSA (methicillin resistant staph aureus) culture positive Z22.322 Active 025024278 Problem History of illicit drug use Z87.898 Ac tive 433899388 Problem Snoring R06.83 Active 50257740 Problem Dysthymic disorder F34.1 Active 7 6405915 Problem Impaired circulation I99.9 Active 57446995 Problem Arthritis M19.90 Active 0293186 Problem 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 Active 277748780 Problem Mild persistent asthma without complication J45.30 Active 523219604 Problem Varicose veins of both lower extremities I83.93 Active 27357796 Problem On home oxygen therapy Z99.81 Active 681947285836 Problem Mild chronic obstructive pulmonary disease J44.9 Active 807326912 Problem Neuropathy G62.9 Active 386035092 Problem Essential hypertension I10 Active 54866952 Problem Social phobia F40.10 Active 885319 02 Problem Major depressive disorder, recurrent episode, moderate F33.1 Active 323998145 Problem Mood disorder F39 Active 003382 05 Problem Psychotic disorder F29 Active 6 8126303 Problem Hypertension, benign I10 Active 65692720 Problem Body mass index (BMI) 40.0-44.9, adult Z68.41 Active 438408499 Problem Panic disorder without agoraphobia F41.0 Active 57300254 Problem Unspecified psychosis not du e to a substance or known physiological condition F29 Active 984538089 Problem Agoraphobia F40.00 Active 54816304 Problem Fatigue R53.83 Active 40674832 Problem Onychomycosis B35.1 Active 179848 008 Problem Major depressive disorder in full remission F32.5 Active 82452082 Problem Slow transit constipation K59.01 Acti ve 84483460 Problem Chronic obstructive pulmonary disease, unspecified COPD ty pe J44.9 Active 59288106 ALLERGIES No Information ENCOUNTERS Encounter Location Date Diagnosis [place] [address] [address] Nov, [place] [address] [address] Sep, [place] [address] [address] Sep, [place] [address] [address] Aug, [place] [address] [address] Aug, Neuropathy G62.9 ; Onychomycosis B35.1 ; Callus of foot L84 and Skin fissures R23.[address] [address] Jul, [place] [address] [address] Jul, Morbid obesity E66.[address] [address] Jul, Unspecified psychosis not due to a subst ance or known physiological condition F29 ; Chronic obstructive pulmonary disease, unspecified COPD type J44.9 and Body mass index (BMI) 40.0-44.9, adult Z68.[address] [address] Jun, [address] [address] Jun, Morbid obesity E66.01 [place] [address] [address] May, Morbid obesity E66.01 [place] [address] [address] May, Encounter for immunization Z23 [address] [id number] [place] [address] May, Major depressive disorder, recurrent epi sode, moderate F33.1 ; Panic disorder without agoraphobia F41.0 and Morbid obesity E66.01 [place] [address] [address] May, Major depressive disorder in full remiss ion F32.5 and Panic disorder without agoraphobia F41.0 [place] [address] [address] Apr, Morbid obesity E66.[address] [address] Apr, Slow transit constipation K59.01 and Lois lulitis of left lower extremity L03.[address] [address] Apr, Morbid obesity E66.[address] [address] Apr, [address] [address] Apr, Major depressive disorder, recurrent epi sode, moderate F33.1 and Panic disorder without agoraphobia F41.[address] [address] Mar, Viral upper respiratory tract infection J06.[address] [address] Mar, Bronchitis J40 and Encounter for immuniz ation Z23 [address] [address] Mar, Morbid obesity E66.[address] [address] Feb, Major depressive disorder, recurrent epi sode, moderate F33.1 and Panic disorder without agoraphobia F41.0 [place] [id number] [place] [address] 10 Feb, 2019 Morbid obesity E66.01 [place] [address] [address] Feb, Onychomycosis B35.1 ; Type 2 diabetes me llitus with diabetic neuropathic arthropathy E11.610 and Xerosis of skin L85.3 [place] [address] [address] Feb, Major depressive disorder, recurrent epi sode, moderate F33.1 ; Panic disorder without agoraphobia F41.0 and Morbid obesity E66.01 [place] [address] [address] Jan, Major depressive disorder in full remiss ion F32.5 and Panic disorder without agoraphobia F41.[address] [address] Jan, Pneumonia of both lower lobes due to inf ectious organism J18.1 and Morbid obesity E66.01 [place] [address] [address] Jan, [place] [address] [address] Jan, Major depressive disorder in full remiss ion F32.5 and Panic disorder without agoraphobia F41.0 [place] [address] [address] Jan, [place] [address] [address] Jan, Major depressive disorder, recurrent epi sode, moderate F33.1 ; Panic disorder without agoraphobia F41.0 and Morbid obesity E66.01 [place] [address] [address] Dec, Bilious vomiting with nausea R11.14 ; Co ughing R05 and Choking, subsequent encounter T17.308D [place] [address] [address] Dec, Morbid obesity E66.01 [place] [address] [address] Dec, Major depressive disorder, recurrent epi sode, moderate F33.1 and Panic disorder without agoraphobia F41.0 [place] [address] [address] Dec, [place] [address] [address] Dec, Major depressive disorder, recurrent epi sode, moderate F33.1 [place] [address] [address] Nov, Major depressive disorder, recurrent epi sode, moderate F33.1 ; Panic disorder without agoraphobia F41.0 and Morbid obesity E66.01 [place] [address] [address] Nov, Morbid obesity E66.01 [place] [address] [address] Nov, Major depressive disorder, recurrent epi sode, moderate F33.1 and Panic disorder without agoraphobia F41.0 [facility] [place] [address] [place] [address] Nov, Allergic reaction, initial e ncounter T78.40XA and Morbid obesity E66.01 [place] [address] [address] Nov, [place] [address] [address] 13 Nov, 2018 Morbid obesity E66.01 ; Swallowing probl em R13.10 and Hypertension, benign I10 [facility] [address] [place] [address] 07 Nov, 2018 Morbid obesity E66.01 ; COPD exacerbation J44.1 and Non- recurrent acute suppurative otitis media of left ear without spontaneous rupture of tympanic membrane H66.002 [facility] [address] [address] Nov, Onychomycosis B35.1 ; Neuropathy G62.9 a nd Fissure in skin of foot R23.4 [facility] [address] [address] October, Major depressive disorder, recurrent epi sode, moderate F33.1 ; Panic disorder without agoraphobia F41.0 and Morbid obesity E66.01 [facility] IN [facility] [address] [facility] [id number] [address] [place] [address] October, Viral upper respiratory trac t infection J06.9 [facility] [address] [address] October, [facility] [address] [address] October, Major depressive disorder, recurrent epi sode, moderate F33.1 and Panic disorder without agoraphobia F41.0 [facility] [address] [address] October, [facility] [address] [address] October, [facility] [address] [address] October, [facility] [address] [address] October, [facility] [address] [address] October, [facility] [address] [address] October, [facility] [address] [address] October, Major depressive disorder, recurrent epi sode, moderate F33.1 and Panic disorder without agoraphobia F41.0 [place] [address] [address] Sep, Morbid obesity E66.01 and Lumbar neuriti s M54.16 [place] [address] [place] [id number] Sep, Panic disorder without agoraphobia F41.0 and Major depressive disorder, recurrent episode, moderate F33.1 [facility] [address] [facility] [id number] [address] [place] [address] Sep, Gastroenteritis K52.9 ; Low back pain M54.5 ; Other chronic pain G89.29 and Morbid obesity E66.01 [place] [address] [address] Sep, Major depressive disorder, recurrent epi sode, moderate F33.1 ; Panic disorder without agoraphobia F41.0 and Social phobia F40.10 [place] [address] [address] Sep, Panic disorder without agoraphobia F41.0 [place] [address] [address] Sep, Panic disorder without agoraphobia F41.0 [place] [address] [address] Aug, Panic disorder without agoraphobia F41.0 ; Major depressive disorder, recurrent episode, moderate F33.1 ; Social phobia F40.10 ; Psychotic disorder F29 ; Tardive dyskinesia G24.01 and Morbid obesity E66.01 [place] [address] [address] Aug, Dysthymic disorder F34.1 and Psychotic d isorder F29 [place] [address] [address] Aug, Encounter for Medicare annual wellness e xam Z00.00 ; Morbid obesity E66.01 and 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 arthropathy E11.610 [place] [address] [address] 12 Aug, 2018 Dysthymic disorder F34.1 and Psychotic d isorder F29 [place] [address] [address] 08 Aug, 2018 Neuropathy G62.9 ; Onychomycosis B35.1 a nd Xerosis of skin L85.3 [place] [address] [address] Jul, [place] [address] [address] Jul, Mood disorder F39 ; Wheezing R06.2 ; Diego sanchez, initial encounter T17.308A and Coughing R05 [place] [address] [address] 07 Jul, 2018 Low back pain M54.5 [facility] [address] [facility] [id number] [address] [place] [address] Jun, Flu-like symptoms R68.89 ; B PR 45.0-49.9, adult Z68.42 ; COPD exacerbation J44.1 and Acute bronchitis J20.9 [place] [address] [address] Jun, [place] [address] [address] May, [place] [address] [address] May, Onychomycosis B35.1 and Type 2 diabetes mellitus with diabetic neuropathic arthropathy E11.610 [place] [address] [address] May, Low back pain M54.5 and Edema leg R60.0 [place] [address] [address] May, BMI 45.0-49.9, adult Z68.42 ; Well woman exam with routine gynecological exam Z01.419 and Breast cancer screening Z12.31 [place] [address] [address] 19 Apr, 2018 Arthritis M19.90 [place] [address] [address] 16 Apr, 2018 Arthritis M19.90 and Otalgia of both ear s H92.03 [place] [address] [address] 28 Feb, 2018 [place] [address] [address] 28 Feb, 2018 Low back pain M54.5 ; Other chronic pain G89.29 ; Exertional asthma J45.990 and Encounter for immunization Z23 [place] [address] [address] 21 Feb, 2018 Skin fissures R23.4 ; Neuropathy G62.9 a nd Onychomycosis B35.1 [place] [address] [address] 05 Feb, 2018 Dysthymic disorder F34.1 [place] [address] [address] 04 Feb, 2018 [place] [address] [address] Jan, [place] [address] [address] Jan, Abrasion of right elbow, initial encount er S50.311A ; Abrasion, right knee, initial encounter S80.211A and Sprain of other ligament of right ankle, initial encounter S93.491A [place] [address] [address] Jan, [facility] [address] [facility] [id number] [address] [place] [address] Jan, Injury of left ankle, initia l encounter S99.912A ; Fall down stairs, initial encounter W10.8XXA and BMI 45.0-49.9, adult Z68.[address] [address] Jan, COPD exacerbation J44.[address] [address] 13 Jan, 2018 Dysfunction of both eustachian tubes H69 .[address] [address] Jan, Bronchitis J40 and Acute suppurative giovana tis media of left ear without spontaneous rupture of tympanic membrane, recurrence not specified H66.[address] [address] Jan, [address] [address] Jan, Bronchitis J40 and BMI 40.0-44.9, adult Z68.[address] [address] Jan, [address] [address] Dec, Gastric pain R10.[address] [address] Dec, [address] [address] Dec, History of illicit drug use Z87.898 ; Ne uropathy G62.9 ; COPD (chronic obstructive pulmonary disease) with chronic bronchitis J44.9 and Acute pain of right knee M25.[address] [address] Nov, [address] [address] Nov, Onychomycosis B35.1 and Contusion of lef t foot, subsequent encounter S90.32XD [address] [id number] [place] [address] 13 Nov, 2017 COPD exacerbation J44.[address] [address] Sep, [address] [address] Sep, Dysthymic disorder F34.1 ; Tobacco abuse Z72.0 ; Pain in right knee M25.561 ; Pain in left knee M25.562 ; Other chronic pain G89.29 and BMI 40.0- 44.9, adult Z68.[address] [address] Aug, Major depressive disorder, recurrent epi sode, moderate F33.1 and Social phobia F40.[address] [address] 14 Aug, 2017 Dysthymic disorder F34.1 ; Non-pressure chronic ulcer of left thigh, unspecified ulcer stage L97.129 ; Tobacco abuse Z72.0 ; Mild chronic obstructive pulmonary disease J44.9 and Forgetfulness R68.[address] [address] 09 Aug, 2017 Onychomycosis B35.1 ; Fissure in skin of foot R23.4 and Foot callus L84 [facility] [address] [place] [id number] [place] [address] Jul, Right medial knee pain M25.5 61 ; Upper respiratory tract infection, unspecified type J06.9 and BMI 40.0-44.9, adult Z68.41 [facility] [place] [id number] [place] [address] 08 Jul, 2017 Nausea and vomiting, intract ability of vomiting not specified, unspecified vomiting type R11.2 ; Left ear pain H92.02 and Gastric pain R10.[address] [address] Apr, Encounter for immunization Z23 [facility] [address] [place] [id number] [place] [address] Apr, Onychomycosis B35.1 ; Xerosis of skin L8 5.3 ; Neuropathy G62.9 and 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.610 [facility] [address] [place] [id number] [place] [address] Jan, Onychomycosis B35.1 and Neuropathy G62.9 [facility] [address] [address] Dec, [facility] [address] [address] Dec, [facility] [address] [address] Nov, [facility] [address] [address] Aug, [facility] [address] [address] Aug, [facility] [address] [address] Jul, [facility] [address] [address] Jul, [facility] [address] [address] Jul, Decubitus ulcer of left thigh, stage 2 L 89.892 [facility] [address] [place] [id number] [place] [address] Jul, Decubitus ulcer of left thigh, stage 2 L 89.892 [place] [address] [address] Jul, [facility] [address] [address] Jul, Decubitus ulcer of left thigh, stage 2 L 89.892 [facility] [address] [address] 14 Jul, 2016 [place] [address] [address] 13 Jul, 2016 Cellulitis of other specified site L03.8 18 ; Illicit drug use F19.90 and Decubitus ulcer of left thigh, stage 2 L89.892 [place] [address] [address] 08 Jul, 2016 [facility] [address] [address] 06 Jul, 2016 Cellulitis of right breast N61.0 [place] [address] [address] Jun, [place] [address] [address] Jun, [place] [address] [address] Jun, Wheezing R06.2 and Arthralgia, unspecifi ed joint M25.50 [place] [address] [address] May, [facility] [address] [address] May, [place] [address] [address] May, [facility] [address] [address] May, Shortness of breath R06.02 [place] [address] [address] May, Onychomycosis B35.1 and Fissure in skin of foot R23.4 [place] [address] [address] Apr, [facility] [address] [facility] [id number] [address] [place] [address] 18 Apr, 2016 Dizziness R42 [facility] [address] [address] 14 Apr, 2016 Shortness of breath R06.02 ; Essential h ypertension I10 ; Dizziness R42 and On home oxygen therapy Z99.81 [facility] [address] [address] Apr, [facility] [address] [address] Apr, [facility] [address] [address] Apr, [facility] [address] [address] Apr, [facility] [address] [address] Apr, [facility] [address] [address] Apr, [facility] [address] [address] Apr, [facility] [address] [address] Mar, Mild chronic obstructive pulmonary disea se J44.9 [facility] [address] [address] Mar, [facility] [address] [address] Mar, Epigastric pain R10.13 ; Low back pain M 54.5 ; Other chronic pain G89.29 and Breast cancer screening Z12.39 [facility] [address] [address] Mar, [facility] [address] [address] Mar, [facility] [address] [address] Feb, [place] [address] [address] Feb, [place] [address] [address] Feb, Fissure in skin of foot R23.4 and Onycho mycosis B35.1 [place] [address] [address] Jan, Agoraphobia F40.00 [place] [address] [address] Dec, Agoraphobia F40.00 [place] [address] [address] Dec, Mild persistent asthma without complicat ion J45.30 ; Dysthymic disorder F34.1 and Upper respiratory tract infection, unspecified type J06.9 [place] [address] [address] Nov, Agoraphobia F40.00 [place] [address] [address] October, Agoraphobia F40.00 [place] [address] [address] Sep, Panic disorder without agoraphobia F41.0 ; Agoraphobia F40.00 and Dysthymic disorder F34.1 [place] [address] [address] Sep, Panic attacks F41.0 [place] [address] [address] Sep, [place] [address] [address] Sep, Panic disorder without agoraphobia F41.0 ; Varicose veins of both lower extremities I83.93 and Fatigue R53.83 [place] [address] [address] 14 Sep, 2015 Fatigue R53.83 [place] [address] [address] 05 Sep, 2015 [place] [address] [address] Aug, [place] [address] [address] Aug, [place] [address] [address] Aug, Type 2 diabetes mellitus with diabetic n europathic arthropathy E11.610 [place] [address] [address] Aug, Panic disorder without agoraphobia F41.0 ; Agoraphobia F40.00 and Dysthymic disorder F34.1 [place] [address] [address] Aug, Shortness of breath R06.02 ; Panic attac nv F41.0 ; COPD (chronic obstructive pulmonary disease) J44.9 ; Tobacco abuse Z72.0 ; Family history of diabetes mellitus Z83.3 and Weight gain R63.5 [place] [address] [address] Aug, [place] [address] [address] Jul, [place] [address] [address] Jun, Onychomycosis B35.1 ; Neuropathy G62.9 a nd Impaired circulation I99.9 [place] [address] [address] 09 Mar, 2015 Fissure in skin of foot R23.4 ; Onychomy cosis B35.1 and 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 [place] [address] [address] 18 Feb, 2015 Family history of coronary arteriosclero sis V17.3 [facility] [address] [place] [id number] [place] [address] 15 Feb, 2015 Allergic rhinitis due to pollen 477.0 ; Unspecified breast screening V76.10 ; Anxiety 300.00 and Family history of coronary arteriosclerosis V17.3 [facility] [address] [place] [id number] [place] [address] Jan, [facility] [address] [address] Dec, [facility] [address] [address] Dec, Onychomycosis 110.1 and Skin fissures 70 9.8 [facility] [address] [place] [id number] [place] [address] Sep, [facility] [address] [address] Sep, [facility] [address] [place] [id number] [place] [address] Aug, [facility] [address] [address] Aug, [facility] [address] [place] [id number] [place] [address] Jul, [facility] [address] [address] Jul, [facility] [address] [place] [id number] [place] [address] Jun, [facility] [address] [address] Jun, [facility] [address] [address] Jun, [facility] [address] [address] Jun, [facility] [place] [facility] [address] [id number] [place] [address] Jun, [facility] [place] [facility] [address] [id number] [place] [address] May, [facility] [place] [facility] [address] [id number] [place] [address] May, [facility] [place] [facility] [address] [id number] [place] [address] May, [facility] [place] [facility] [address] [id number] [place] [address] May, [facility] [place] [facility] [address] [id number] [place] [address] May, [facility] [place] [facility] [address] [id number] [place] [address] May, [facility] [place] [facility] [address] [id number] [place] [address] May, [facility] [place] [facility] [address] [id number] [place] [address] May, [facility] [address] [id number] [place] [address] Apr, [facility] [address] [id number] [place] [address] Apr, [facility] [address] [id number] [place] [address] Apr, [facility] [address] [id number] [place] [address] Apr, [facility] [address] [id number] [place] [address] Apr, [facility] [address] [id number] [place] [address] Apr, [facility] [address] [id number] [place] [address] Apr, [facility] [address] [id number] [place] [address] Apr, [facility] [address] [id number] [place] [address] Apr, 2013 [facility] [address] [id number] [place] [address] Apr, [facility] [address] [id number] [place] [address] Mar, [facility] [address] [id number] [place] [address] Mar, [facility] [place] [facility] [address] [facility] [id number] [place] [address] Mar, [facility] [place] [facility] [address] [id number] [place] [address] Mar, [facility] [place] [facility] [address] [id number] [place] [address] Mar, [facility] [place] [facility] [address] [id number] [place] [address] Mar, [facility] [place] [facility] [address] [id number] [place] [address] Mar, [facility] [place] [facility] [address] [id number] [place] [address] Mar, [facility] [place] [facility] [address] [id number] [place] [address] Mar, [facility] [place] [facility] [address] [id number] [place] [address] Mar, [facility] [place] [facility] [address] [id number] [place] [address] Mar, [facility] [place] [facility] [address] [id number] [place] [address] Mar, [facility] [place] [facility] [address] [id number] [place] [address] Mar, [facility] [place] [facility] [address] [id number] [place] [address] Mar, 2013 [facility] [place] [facility] [address] [id number] [place] [address] 22 Mar, 2013 [facility] [place] [facility] [address] [facility] [id number] [place] [address] 20 Mar, 2013 [facility] [place] [facility] [address] [facility] [id number] [place] [address] 20 Mar, 2013 [facility] [place] [facility] [address] [id number] [place] [address] 16 Mar, 2013 [facility] [place] [facility] [address] [id number] [place] [address] 16 Mar, 2013 [facility] [place] [facility] [address] [id number] [place] [address] 15 Mar, 2014 [facility] [place] [facility] [address] [id number] [place] [address] 14 Mar, 2014 [facility] [place] [facility] [address] [id number] [place] [address] 14 Mar, 2014 [facility] [place] [facility] [address] [id number] [place] [address] 14 Mar, 2013 [facility] [place] [facility] [address] [id number] [place] [address] 14 Mar, 2014 [facility] [place] [facility] [address] [id number] [place] [address] 09 Mar, 2013 [facility] [place] [facility] [address] [id number] [place] [address] 09 Mar, 2013 [facility] [place] [facility] [address] [id number] [place] [address] 09 Mar, 2013 [facility] [place] [facility] [address] [id number] [place] [address] 09 Mar, 2013 [facility] [place] [facility] [address] [id number] [place] [address] 30 Feb, 2013 [facility] [place] [facility] [address] [id number] [place] [address] 30 Feb, 2013 [facility] [place] [facility] [address] [id number] [place] [address] 30 Feb, 2013 [facility] [place] [facility] [address] [id number] [place] [address] 30 Feb, 2013 [facility] [place] [facility] [address] [id number] [place] [address] Feb, 2013 [facility] [place] [facility] [address] [id number] [place] [address] Feb, 2013 [facility] [place] [facility] [address] [id number] [place] [address] Feb, 2013 [facility] [place] [facility] [address] [facility] [id number] [place] [address] Feb, 2013 [facility] [place] [facility] [address] [id number] [place] [address] Feb, 2013 [facility] [place] [facility] [address] [id number] [place] [address] Feb, 2013 [facility] [place] [facility] [address] [id number] [place] [address] Feb, 2013 [facility] [place] [facility] [address] [id number] [place] [address] Feb, 2013 [facility] [place] [facility] [address] [id number] [place] [address] Jan, [facility] [place] [facility] [address] [id number] [place] [address] Jan, [facility] [place] [facility] [address] [id number] [place] [address] Jan, [facility] [place] [facility] [address] [id number] [place] [address] Jan, [facility] [place] [facility] [address] [id number] [place] [address] Jan, [facility] [place] [facility] [address] [id number] [place] [address] Jan, [facility] [place] [facility] [address] [id number] [place] [address] Jan, [facility] [place] [facility] [address] [id number] [place] [address] Jan, [facility] [place] [facility] [address] [id number] [place] [address] Jan, [facility] [place] [facility] [address] [id number] [place] [address] Jan, [facility] [place] [facility] [address] [facility] [id number] [place] [address] Jan, [facility] [place] [facility] [address] [id number] [place] [address] Jan, [facility] [place] [facility] [address] [facility] [id number] [place] [address] Jan, [facility] [place] [facility] [address] [facility] [id number] [place] [address] Dec, [facility] [place] [facility] [address] [facility] [id number] [place] [address] Dec, [facility] [place] [facility] [address] [id number] [place] [address] Dec, [facility] [place] [facility] [address] [facility] [id number] [place] [address] Dec, [facility] [place] [facility] [address] [id number] [place] [address] Dec, [facility] [place] [facility] [address] [id number] [place] [address] Dec, [facility] [place] [facility] [address] [id number] [place] [address] Dec, [facility] [place] [facility] [address] [facility] [id number] [place] [address] Dec, [facility] [place] [facility] [address] [id number] [place] [address] Dec, [facility] [place] [facility] [address] [facility] [id number] [place] [address] Dec, [facility] [place] [facility] [address] [id number] [place] [address] Dec, [facility] [place] [facility] [address] [facility] [id number] [place] [address] Dec, 2013 [facility] [place] [facility] [address] [facility] [id number] [place] [address] Dec, 2013 [facility] [place] [facility] [address] [facility] [id number] [place] [address] Dec, 2013 [facility] [place] [facility] [address] [id number] [place] [address] Dec, 2013 [facility] [place] [facility] [address] [facility] [id number] [place] [address] Dec, 2013 [facility] [place] [facility] [address] [facility] [id number] [place] [address] Dec, 2013 [facility] [place] [facility] [address] [id number] [place] [address] Dec, 2013 [facility] [place] [facility] [address] [id number] [place] [address] Nov, [facility] [place] [facility] [address] [id number] [place] [address] Nov, [facility] [place] [facility] [address] [id number] [place] [address] Nov, [facility] [place] [facility] [address] [id number] [place] [address] Nov, [facility] [place] [facility] [address] [id number] [place] [address] Nov, [facility] [place] [facility] [address] [id number] [place] [address] Nov, [facility] [place] [facility] [address] [facility] [id number] [place] [address] Nov, [facility] [place] [facility] [address] [id number] [place] [address] Nov, [facility] [place] [facility] [address] [id number] [place] [address] Nov, [facility] [place] [facility] [address] [id number] [place] [address] Nov, [facility] [place] [facility] [address] [facility] [id number] [place] [address] Nov, [facility] [place] [facility] [address] [id number] [place] [address] Nov, [facility] [place] [facility] [address] [id number] [place] [address] Nov, [facility] [place] [facility] [address] [id number] [place] [address] Nov, [facility] [place] [facility] [address] [facility] [id number] [place] [address] Nov, [facility] [place] [facility] [address] [id number] [place] [address] Nov, [facility] [place] [facility] [address] [id number] [place] [address] Nov, [facility] [place] [facility] [address] [id number] [place] [address] Nov, [facility] [place] [facility] [address] [id number] [place] [address] Nov, [facility] [place] [facility] [address] [id number] [place] [address] Nov, [facility] [place] [facility] [address] [id number] [place] [address] October, [facility] [place] [facility] [address] [id number] [place] [address] October, [facility] [place] [facility] [address] [id number] [place] [address] October, [facility] [place] [facility] [address] [id number] [place] [address] October, [facility] [place] [facility] [address] [id number] [place] [address] Sep, [facility] [place] [facility] [address] [id number] [place] [address] Sep, [facility] [place] [facility] [address] [id number] [place] [address] Sep, [facility] [place] [facility] [address] [facility] [id number] [place] [address] 17 Sep, 2013 [facility] [place] [facility] [address] [facility] [id number] [place] [address] Sep, [facility] [place] [facility] [address] [facility] [id number] [place] [address] Sep, [facility] [place] [facility] [address] [id number] [place] [address] Sep, [facility] [place] [facility] [address] [facility] [id number] [place] [address] Sep, [facility] [place] [facility] [address] [id number] [place] [address] Sep, [facility] [place] [facility] [address] [id number] [place] [address] Aug, [facility] [place] [facility] [address] [id number] [place] [address] Aug, [facility] [place] [facility] [address] [id number] [place] [address] Aug, [facility] [place] [facility] [address] [id number] [place] [address] Aug, [facility] [place] [facility] [address] [id number] [place] [address] Aug, [facility] [place] [facility] [address] [id number] [place] [address] Aug, [facility] [place] [facility] [address] [id number] [place] [address] Aug, [facility] [place] [facility] [address] [id number] [place] [address] Aug, [facility] [place] [facility] [address] [id number] [place] [address] Jul, [facility] [place] [facility] [address] [id number] [place] [address] Jul, [facility] [place] [facility] [address] [id number] [place] [address] Jun, [facility] [place] [facility] [address] [id number] [place] [address] Jun, [facility] [place] [facility] [address] [id number] [place] [address] Jun, [facility] [place] [facility] [address] [id number] [place] [address] Jun, [facility] [place] [facility] [address] [id number] [place] [address] Jun, [facility] [place] [facility] [address] [id number] [place] [address] Jun, [facility] [place] [facility] [address] [id number] [place] [address] Jun, [facility] [place] [facility] [address] [id number] [place] [address] Jun, [facility] [place] [facility] [address] [id number] [place] [address] Jun, [facility] [place] [facility] [address] [id number] [place] [address] Jun, [facility] [place] [facility] [address] [id number] [place] [address] Jun, [facility] [place] [facility] [address] [id number] [place] [address] Jun, [facility] [place] [facility] [address] [id number] [place] [address] May, [facility] [place] [facility] [address] [id number] [place] [address] May, [facility] [place] [facility] [address] [id number] [place] [address] May, [facility] [place] [facility] [address] [id number] [place] [address] May, [facility] [place] [facility] [address] [id number] [place] [address] May, [facility] [place] [facility] [address] [id number] [place] [address] 31 May, 2013 [facility] [place] [facility] [address] [id number] [place] [address] May, [facility] [place] [facility] [address] [id number] [place] [address] May, [facility] [place] [facility] [address] [id number] [place] [address] May, [facility] [place] [facility] [address] [id number] [place] [address] May, [facility] [place] [facility] [address] [id number] [place] [address] May, [facility] [place] [facility] [address] [id number] [place] [address] May, [facility] [place] [facility] [address] [id number] [place] [address] May, [facility] [place] [facility] [address] [id number] [place] [address] Apr, [facility] [place] [facility] [address] [id number] [place] [address] Apr, [facility] [place] [facility] [address] [id number] [place] [address] Mar, [facility] [place] [facility] [address] [id number] [place] [address] Mar, [facility] [place] [facility] [address] [id number] [place] [address] 24 Feb, 2013 [facility] [place] [facility] [address] [id number] [place] [address] 23 Feb, 2012 [facility] [place] [facility] [address] [id number] [place] [address] Feb, [facility] [place] [facility] [address] [id number] [place] [address] Feb, [facility] [place] [facility] [address] [id number] [place] [address] Jan, [facility] [place] [facility] [address] [facility] [id number] [place] [address] Jan, [facility] [place] [facility] [address] [facility] [id number] [place] [address] Jan, [facility] [place] [facility] [address] [id number] [place] [address] Jan, [facility] [place] [facility] [address] [id number] [place] [address] Jan, [facility] [place] [facility] [address] [facility] [id number] [place] [address] Jan, [facility] [place] [facility] [address] [id number] [place] [address] Dec, [facility] [place] [facility] [address] [id number] [place] [address] Dec, [facility] [place] [facility] [address] [id number] [place] [address] Dec, [facility] [place] [facility] [address] [id number] [place] [address] Dec, [facility] [place] [facility] [address] [id number] [place] [address] Nov, [facility] [place] [facility] [address] [id number] [place] [address] October, [facility] [place] [facility] [address] [id number] [place] [address] October, [facility] [address] [id number] [place] [address] October, [facility] [address] [id number] [place] [address] Sep, [facility] [address] [id number] [place] [address] Sep, [facility] [address] [id number] [place] [address] Jun, [facility] [address] [id number] [place] [address] Jun, [facility] [address] [id number] [place] [address] Jun, [facility] [address] [id number] [place] [address] Apr, [facility] [address] [id number] [place] [address] Apr, [facility] [address] [id number] [place] [address] Apr, [facility] [address] [id number] [place] [address] Apr, [facility] [address] [id number] [place] [address] Mar, [facility] [address] [id number] [place] [address] Mar, [facility] [address] [id number] [place] [address] Mar, [facility] [address] [id number] [place] [address] Mar, [facility] [address] [id number] [place] [address] Feb, [facility] [address] [id number] [place] [address] Feb, [facility] [address] [id number] [place] [address] Feb, [facility] [address] [id number] [place] [address] 30 Jan, 2012 [facility] [id number] [place] [address] Jan, [facility] [address] [id number] [place] [address] Jan, [facility] [address] [id number] [place] [address] Jan, [facility] [address] [id number] [place] [address] Dec, [facility] [address] [id number] [place] [address] Dec, [facility] [address] [id number] [place] [address] Nov, [facility] [address] [id number] [place] [address] Nov, [facility] [address] [id number] [place] [address] October, [facility] [address] [id number] [place] [address] October, [facility] [address] [id number] [place] [address] October, [facility] [address] [id number] [place] [address] Sep, [facility] [address] [id number] [place] [address] Sep, [facility] [address] [id number] [place] [address] Sep, [facility] [address] [id number] [place] [address] Aug, [facility] [address] [id number] [place] [address] Aug, [facility] [address] [id number] [place] [address] Aug, [facility] [address] [id number] [place] [address] Aug, [facility] [address] [id number] [place] [address] Aug, [facility] [address] [id number] [place] [address] Jul, [facility] [address] [id number] [place] [address] 16 Jul, 2011 [facility] [address] [id number] [place] [address] Jul, [facility] [address] [id number] [place] [address] Jul, [facility] [address] [id number] [place] [address] Jul, [facility] [address] [id number] [place] [address] Jul, [facility] [address] [id number] [place] [address] Jul, [facility] [address] [id number] [place] [address] Jul, [facility] [id number] [place] [address] Jun, [facility] [id number] [place] [address] Jun, [facility] [address] [id number] [place] [address] May, [facility] [id number] [place] [address] May, [facility] [address] [id number] [place] [address] May, [facility] [id number] [place] [address] May, [facility] [address] [id number] [place] [address] Apr, [facility] [id number] [place] [address] Apr, [facility] [address] [id number] [place] [address] Apr, [facility] [address] [id number] [place] [address] Mar, [facility] [address] [id number] [place] [address] 18 Mar, 2011 [facility] [address] [id number] [place] [address] 18 Mar, 2011 [facility] [address] [id number] [place] [address] 2011 [facility] [address] [id number] [place] [address] Dec, [facility] [address] [id number] [place] [address] October, [facility] [address] [id number] [place] [address] May, [facility] [address] [id number] [place] [address] 13 May, 2010 [facility] [address] [id number] [place] [address] 13 May, 2010 [facility] [address] [id number] [place] [address] 06 May, 2010 [facility] [address] [id number] [place] [address] Mar, [facility] [address] [facility] [id number] [place] [address] Mar, [facility] [address] [id number] [place] [address] May, [facility] [address] [id number] [place] [address] 30 May, 2009 [facility] [address] [id number] [place] [address] 08 May, 2009 [facility] [address] [id number] [place] [address] May, [facility] [address] [id number] [place] [address] Apr, [facility] [address] [id number] [place] [address] Apr, [facility] [address] [facility] [id number] [place] [address] October, IMMUNIZATIONS No Known Immunizations SOCIAL HISTORY Never Assessed REASON FOR VISIT PLAN OF CARE VITAL SIGNS Height 64 in 2013-08-15 Weight 202.7 lbs 2013-08-15 Temperature 97.1 degrees Fahrenheit 2013-08-15 Heart Rate 78 bpm 2013-08-15 Respiratory Rate 18 2013-08-15 Blood pressure systolic 154 mmHg 2013-08-15 Blood pressure diastolic 82 mmHg 2013-08-15 MEDICATIONS Unknown Medications RESULTS No Results PROCEDURES [...]
--- OUTSIDE RECORDS SUMMARY | 2020-01-13 11:53 | XMS REPORT ---
Author Author Monique RAHMAN [facility] Address [address] [place] [address] Care Team Providers Care Duty Engineer Name Role Phone RASHEED RAHMAN Unavailable PROBLEMS Type Condition ICD9-CM Code SPO38-BE Code Onset Dates Condition S tatus SNOMED Code Problem MRSA (methicillin resistant staph aureus) culture positive Z22.322 Active 896754987 Problem History of illicit drug use Z87.898 Ac tive 444223455 Problem Snoring R06.83 Active 66371309 Problem Dysthymic disorder F34.1 Active 7 1521335 Problem Impaired circulation I99.9 Active 96202455 Problem Arthritis M19.90 Active 1515076 Problem 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 Active 657529247 Problem Mild persistent asthma without complication J45.30 Active 862736283 Problem Varicose veins of both lower extremities I83.93 Active 55158806 Problem On home oxygen therapy Z99.81 Active 314796392561 Problem Mild chronic obstructive pulmonary disease J44.9 Active 143319207 Problem Neuropathy G62.9 Active 891140332 Problem Essential hypertension I10 Active 86659661 Problem Social phobia F40.10 Active 783079 02 Problem Major depressive disorder, recurrent episode, moderate F33.1 Active 462865938 Problem Mood disorder F39 Active 114396 05 Problem Psychotic disorder F29 Active 6 9519639 Problem Hypertension, benign I10 Active 83651869 Problem Body mass index (BMI) 40.0-44.9, adult Z68.41 Active 856036140 Problem Panic disorder without agoraphobia F41.0 Active 08907911 Problem Unspecified psychosis not du e to a substance or known physiological condition F29 Active 354276873 Problem Agoraphobia F40.00 Active 90737600 Problem Fatigue R53.83 Active 85060237 Problem Onychomycosis B35.1 Active 606310 008 Problem Major depressive disorder in full remission F32.5 Active 24311623 Problem Slow transit constipation K59.01 Acti ve 07486769 Problem Chronic obstructive pulmonary disease, unspecified COPD ty pe J44.9 Active 91610502 ALLERGIES No Information ENCOUNTERS Encounter Location Date Diagnosis [place] [address] [address] Sep, [place] [address] [address] Sep, [place] [address] [address] Aug, [place] [address] [address] Aug, [place] [address] [address] Jul, [place] [address] [address] Jul, Morbid obesity E66.01 [place] [address] [address] Jul, Unspecified psychosis not due to a subst ance or known physiological condition F29 ; Chronic obstructive pulmonary disease, unspecified COPD type J44.9 and Body mass index (BMI) 40.0-44.9, adult Z68.41 [place] [address] [address] Jun, [place] [address] [address] Jun, Morbid obesity E66.01 [place] [address] [address] May, Morbid obesity E66.01 [place] [address] [address] May, Encounter for immunization Z23 [place] [address] [address] May, Major depressive disorder, recurrent epi sode, moderate F33.1 ; Panic disorder without agoraphobia F41.0 and Morbid obesity E66.01 [place] [address] [address] May, Major depressive disorder in full remiss ion F32.5 and Panic disorder without agoraphobia F41.0 [place] [address] [address] Apr, Morbid obesity E66.01 [place] [address] [address] Apr, Slow transit constipation K59.01 and Lois lulitis of left lower extremity L03.[address] [address] Apr, Morbid obesity E66.[address] [address] Apr, [address] [address] Apr, Major depressive disorder, recurrent epi sode, moderate F33.1 and Panic disorder without agoraphobia F41.[address] [address] Mar, Viral upper respiratory tract infection J06.[address] [address] Mar, Bronchitis J40 and Encounter for immuniz ation Z23 [address] [address] Mar, Morbid obesity E66.[address] [address] Feb, Major depressive disorder, recurrent epi sode, moderate F33.1 and Panic disorder without agoraphobia F41.[address] [address] Feb, Morbid obesity E66.01 [place] [address] [address] Feb, Onychomycosis B35.1 ; Type 2 diabetes me llitus with diabetic neuropathic arthropathy E11.610 and Xerosis of skin L85.3 [place] [address] [address] Feb, Major depressive disorder, recurrent epi sode, moderate F33.1 ; Panic disorder without agoraphobia F41.0 and Morbid obesity E66.01 [place] [address] [address] Jan, Major depressive disorder in full remiss ion F32.5 and Panic disorder without agoraphobia F41.0 [place] [address] [address] Jan, Pneumonia of both lower lobes due to inf ectious organism J18.1 and Morbid obesity E66.01 [place] [address] [address] Jan, [place] [address] [address] Jan, Major depressive disorder in full remiss ion F32.5 and Panic disorder without agoraphobia F41.0 [place] [address] [address] Jan, [place] [address] [address] Jan, Major depressive disorder, recurrent epi sode, moderate F33.1 ; Panic disorder without agoraphobia F41.0 and Morbid obesity E66.[address] [address] Dec, Bilious vomiting with nausea R11.14 ; Co ughing R05 and Choking, subsequent encounter T17.308D [place] [address] [address] Dec, Morbid obesity E66.01 [place] [address] [address] 16 Dec, 2018 Major depressive disorder, recurrent epi sode, moderate F33.1 and Panic disorder without agoraphobia F41.0 [place] [address] [address] Dec, [place] [address] [address] Dec, Major depressive disorder, recurrent epi sode, moderate F33.1 [place] [address] [address] Nov, Major depressive disorder, recurrent epi sode, moderate F33.1 ; Panic disorder without agoraphobia F41.0 and Morbid obesity E66.01 [place] [address] [address] Nov, Morbid obesity E66.01 [place] [address] [address] Nov, Major depressive disorder, recurrent epi sode, moderate F33.1 and Panic disorder without agoraphobia F41.0 [facility] [place] [id number] [place] [address] 18 Nov, 2018 Allergic reaction, initial e ncounter T78.40XA and Morbid obesity E66.01 [place] [address] [address] Nov, [place] [address] [address] 13 Nov, 2018 Morbid obesity E66.01 ; Swallowing probl em R13.10 and Hypertension, benign I10 [facility] [place] [id number] [place] [address] 07 Nov, 2018 Morbid obesity E66.01 ; COPD exacerbation J44.1 and Non- recurrent acute suppurative otitis media of left ear without spontaneous rupture of tympanic membrane H66.002 [place] [address] [address] 07 Nov, 2018 Onychomycosis B35.1 ; Neuropathy G62.9 a nd Fissure in skin of foot R23.4 [facility] [address] [place] [id number] [place] [address] October, Major depressive disorder, recurrent epi sode, moderate F33.1 ; Panic disorder without agoraphobia F41.0 and Morbid obesity E66.01 [facility] [address] [facility] [id number] [address] [address] October, Viral upper respiratory trac t infection J06.9 [place] [address] [address] October, [facility] [address] [address] October, Major depressive disorder, recurrent epi sode, moderate F33.1 and Panic disorder without agoraphobia F41.0 [facility] [address] [address] October, [facility] [address] [address] October, [facility] [address] [address] October, [facility] [address] [address] October, [facility] [address] [address] October, [facility] [address] [address] October, [facility] [address] [address] October, Major depressive disorder, recurrent epi sode, moderate F33.1 and Panic disorder without agoraphobia F41.0 [facility] [address] [address] Sep, Morbid obesity E66.01 and Lumbar neuriti s M54.16 [place] [address] [address] Sep, Panic disorder without agoraphobia F41.0 and Major depressive disorder, recurrent episode, moderate F33.1 [facility] [address] [facility] [id number] [address] [place] [address] Sep, Gastroenteritis K52.9 ; Low back pain M54.5 ; Other chronic pain G89.29 and Morbid obesity E66.01 [facility] [address] [address] Sep, Major depressive disorder, recurrent epi sode, moderate F33.1 ; Panic disorder without agoraphobia F41.0 and Social phobia F40.10 [place] [address] [address] Sep, Panic disorder without agoraphobia F41.0 [facility] [address] [address] Sep, Panic disorder without agoraphobia F41.0 [place] [address] [address] Aug, Panic disorder without agoraphobia F41.0 ; Major depressive disorder, recurrent episode, moderate F33.1 ; Social phobia F40.10 ; Psychotic disorder F29 ; Tardive dyskinesia G24.01 and Morbid obesity E66.01 [place] [address] [address] Aug, Dysthymic disorder F34.1 and Psychotic d isorder F29 [place] [address] [address] Aug, Encounter for Medicare annual wellness e xam Z00.00 ; Morbid obesity E66.01 and Type 2 diabetes mellitus with diabetic neuropathic arthropathy E11.610 [place] [address] [address] Aug, Dysthymic disorder F34.1 and Psychotic d isorder F29 [place] [address] [address] Aug, Neuropathy G62.9 ; Onychomycosis B35.1 a nd Xerosis of skin L85.3 [place] [address] [address] Jul, [place] [address] [address] Jul, Mood disorder F39 ; Wheezing R06.2 ; Diego sanchez, initial encounter T17.308A and Coughing R05 [place] [address] [address] Jul, Low back pain M54.5 [facility] [address] [facility] [id number] [address] [place] [address] Jun, Flu-like symptoms R68.89 ; B NM 45.0-49.9, adult Z68.42 ; COPD exacerbation J44.1 and Acute bronchitis J20.9 [place] [address] [address] Jun, [place] [address] [address] May, [place] [address] [address] May, Onychomycosis B35.1 and Type 2 diabetes mellitus with diabetic neuropathic arthropathy E11.610 [place] [address] [address] May, Low back pain M54.5 and Edema leg R60.0 [place] [address] [address] May, BMI 45.0-49.9, adult Z68.42 ; Well woman exam with routine gynecological exam Z01.419 and Breast cancer screening Z12.31 [place] [address] [address] Apr, Arthritis M19.90 [place] [address] [address] 16 Apr, 2018 Arthritis M19.90 and Otalgia of both ear s H92.03 [place] [address] [address] 28 Feb, 2018 [place] [address] [address] 28 Feb, 2018 Low back pain M54.5 ; Other chronic pain G89.29 ; Exertional asthma J45.990 and Encounter for immunization Z23 [place] [address] [address] 21 Feb, 2018 Skin fissures R23.4 ; Neuropathy G62.9 a nd Onychomycosis B35.1 [place] [address] [address] 05 Feb, 2018 Dysthymic disorder F34.1 [place] [address] [address] 04 Feb, 2018 [place] [address] [address] Jan, [place] [address] [address] Jan, Abrasion of right elbow, initial encount er S50.311A ; Abrasion, right knee, initial encounter S80.211A and Sprain of other ligament of right ankle, initial encounter S93.491A [place] [address] [address] Jan, [facility] [address] [facility] [id number] [address] [place] [address] Jan, Injury of left ankle, initia l encounter S99.912A ; Fall down stairs, initial encounter W10.8XXA and BMI 45.0-49.9, adult Z68.42 [place] [address] [address] Jan, COPD exacerbation J44.1 [place] [address] [address] Jan, Dysfunction of both eustachian tubes H69 .83 [place] [address] [address] Jan, Bronchitis J40 and Acute suppurative giovana tis media of left ear without spontaneous rupture of tympanic membrane, recurrence not specified H66.002 [place] [address] [address] Jan, [place] [address] [address] Jan, Bronchitis J40 and BMI 40.0-44.9, adult Z68.[address] [address] Jan, [place] [address] [address] Dec, Gastric pain R10.[address] [address] Dec, [place] [address] [address] Dec, History of illicit drug use Z87.898 ; Ne uropathy G62.9 ; COPD (chronic obstructive pulmonary disease) with chronic bronchitis J44.9 and Acute pain of right knee M25.561 [place] [address] [address] Nov, [address] [address] Nov, Onychomycosis B35.1 and Contusion of lef t foot, subsequent encounter S90.32XD [address] [address] Nov, COPD exacerbation J44.1 [place] [address] [address] Sep, [address] [address] Sep, Dysthymic disorder F34.1 ; Tobacco abuse Z72.0 ; Pain in right knee M25.561 ; Pain in left knee M25.562 ; Other chronic pain G89.29 and BMI 40.0- 44.9, adult Z68.41 [place] [address] [address] Aug, Major depressive disorder, recurrent epi sode, moderate F33.1 and Social phobia F40.[address] [address] 14 Aug, 2017 Dysthymic disorder F34.1 ; Non-pressure chronic ulcer of left thigh, unspecified ulcer stage L97.129 ; Tobacco abuse Z72.0 ; Mild chronic obstructive pulmonary disease J44.9 and Forgetfulness R68.[address] [address] 09 Aug, 2017 Onychomycosis B35.1 ; Fissure in skin of foot R23.4 and Foot callus L84 [facility] [address] [place], [place] [id number] [address] [place] [address] 26 Jul, 2017 Right medial knee pain M25.5 61 ; Upper respiratory tract infection, unspecified type J06.9 and BMI 40.0-44.9, adult Z68.41 [facility] [address] [place], [place] [id number] [address] [place] [address] 08 Jul, 2017 Nausea and vomiting, intract ability of vomiting not specified, unspecified vomiting type R11.2 ; Left ear pain H92.02 and Gastric pain R10.[address] [address] 17 Apr, 2017 Encounter for immunization Z23 [address] [address] Apr, Onychomycosis B35.1 ; Xerosis of skin L8 5.3 ; Neuropathy G62.9 and 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.610 [place] [address] [address] Jan, Onychomycosis B35.1 and Neuropathy G62.9 [facility] [address] [address] Dec, [facility] [address] [address] Dec, [place] [address] [address] Nov, [place] [address] [address] Aug, [place] [address] [address] Aug, [facility] [address] [address] Jul, [place] [address] [address] Jul, [place] [address] [address] Jul, Decubitus ulcer of left thigh, stage 2 L 89.892 [place] [address] [address] Jul, Decubitus ulcer of left thigh, stage 2 L 89.892 [facility] [address] [address] Jul, [place] [address] [address] Jul, Decubitus ulcer of left thigh, stage 2 L 89.892 [place] [address] [address] Jul, [facility] [address] [place] [id number] [place] [address] 13 Jul, 2016 Cellulitis of other specified site L03.8 18 ; Illicit drug use F19.90 and Decubitus ulcer of left thigh, stage 2 L89.892 [facility] [address] [place] [id number] [place] [address] 08 Jul, 2016 [facility] [address] [address] 06 Jul, 2016 Cellulitis of right breast N61.0 [facility] [address] [address] Jun, [place] [address] [address] Jun, [facility] [address] [address] Jun, Wheezing R06.2 and Arthralgia, unspecifi ed joint M25.50 [facility] [address] [place] [id number] [place] [address] May, [place] [address] [address] May, [facility] [address] [address] May, [place] [address] [address] May, Shortness of breath R06.02 [facility] [address] [place] [id number] [place] [address] May, Onychomycosis B35.1 and Fissure in skin of foot R23.4 [facility] [address] [place] [id number] [place] [address] Apr, [facility] [address] [facility] [id number] [address] [place] [address] Apr, Dizziness R42 [facility] [address] [address] 14 Apr, 2016 Shortness of breath R06.02 ; Essential h ypertension I10 ; Dizziness R42 and On home oxygen therapy Z99.81 [facility] [address] [address] 10 Apr, 2016 [facility] [address] [address] Apr, [facility] [address] [address] Apr, [facility] [address] [address] Apr, [facility] [address] [address] Apr, [facility] [address] [address] Apr, [facility] [address] [address] Apr, [facility] [address] [address] Mar, Mild chronic obstructive pulmonary disea se J44.9 [facility] [address] [address] Mar, [facility] [address] [address] Mar, Epigastric pain R10.13 ; Low back pain M 54.5 ; Other chronic pain G89.29 and Breast cancer screening Z12.39 [facility] [address] [address] Mar, [facility] [address] [address] Mar, [facility] [address] [address] Feb, [facility] [address] [address] 08 Feb, 2016 [facility] [address] [address] Feb, Fissure in skin of foot R23.4 and Onycho mycosis B35.1 [facility] [address] [address] Jan, Agoraphobia F40.00 [place] [address] [address] Dec, Agoraphobia F40.00 [place] [address] [address] Dec, Mild persistent asthma without complicat ion J45.30 ; Dysthymic disorder F34.1 and Upper respiratory tract infection, unspecified type J06.9 [place] [address] [address] Nov, Agoraphobia F40.00 [place] [address] [address] October, Agoraphobia F40.00 [place] [address] [address] Sep, Panic disorder without agoraphobia F41.0 ; Agoraphobia F40.00 and Dysthymic disorder F34.1 [place] [address] [address] Sep, Panic attacks F41.0 [place] [address] [address] Sep, [place] [address] [address] Sep, Panic disorder without agoraphobia F41.0 ; Varicose veins of both lower extremities I83.93 and Fatigue R53.83 [place] [address] [address] Sep, Fatigue R53.83 [place] [address] [address] Sep, [place] [address] [address] Aug, [place] [address] [address] Aug, [place] [address] [address] Aug, Type 2 diabetes mellitus with diabetic n europathic arthropathy E11.610 [place] [address] [address] Aug, Panic disorder without agoraphobia F41.0 ; Agoraphobia F40.00 and Dysthymic disorder F34.1 [place] [address] [address] Aug, Shortness of breath R06.02 ; Panic attac pr F41.0 ; COPD (chronic obstructive pulmonary disease) J44.9 ; Tobacco abuse Z72.0 ; Family history of diabetes mellitus Z83.3 and Weight gain R63.5 [place] [address] [address] Aug, [place] [address] [address] Jul, [place] [address] [address] Jun, Onychomycosis B35.1 ; Neuropathy G62.9 a nd Impaired circulation I99.9 [place] [address] [address] 09 Mar, 2015 Fissure in skin of foot R23.4 ; Onychomy cosis B35.1 and 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 [place] [address] [address] 18 Feb, 2015 Family history of coronary arteriosclero sis V17.3 [place] [address] [place] [id number] [place] [address] 15 Feb, 2015 Allergic rhinitis due to pollen 477.0 ; Unspecified breast screening V76.10 ; Anxiety 300.00 and Family history of coronary arteriosclerosis V17.3 [facility] [address] [id number] [place] [address] Jan, [facility] [address] [id number] [place] [address] Dec, [facility] [address] [address] [id number] [place] [address] Dec, Onychomycosis 110.1 and Skin fissures 70 9.8 [facility] [address] [place] [id number] [place] [address] Sep, [facility] [address] [place] [id number] [place] [address] Sep, [facility] [id number] [place] [address] Aug, [facility] [id number] [place] [address] Aug, [facility] [address] [id number] [place] [address] Jul, [facility] [address] [address] [id number] [place] [address] Jul, [facility] [address] [id number] [place] [address] Jun, [facility] [address] [address] [id number] [place] [address] Jun, [facility] [address] [id number] [place] [address] Jun, [facility] [id number] [place] [address] Jun, [facility] [address] [id number] [place] [address] Jun, [facility] [address] [id number] [place] [address] May, [facility] [address] [id number] [place] [address] May, [facility] [address] [id number] [place] [address] May, [facility] [address] [id number] [place] [address] May, [facility] [address] [id number] [place] [address] May, [facility] [address] [id number] [place] [address] May, [facility] [address] [id number] [place] [address] May, [facility] [address] [id number] [place] [address] May, [facility] [address] [id number] [place] [address] Apr, [facility] [address] [id number] [place] [address] Apr, [facility] [address] [id number] [place] [address] Apr, [facility] [address] [id number] [place] [address] Apr, [facility] [address] [id number] [place] [address] Apr, [facility] [address] [id number] [place] [address] Apr, [facility] [address] [id number] [place] [address] Apr, [facility] [address] [id number] [place] [address] Apr, [facility] [address] [id number] [place] [address] Apr, 2013 [facility] [address] [facility] [id number] [place] [address] Apr, 2013 [facility] [address] [facility] [id number] [place] [address] Mar, [facility] [address] [id number] [place] [address] Mar, [facility] [address] [facility] [id number] [place] [address] Mar, [facility] [place] [facility] [address] [facility] [id number] [place] [address] Mar, [facility] [place] [facility] [address] [id number] [place] [address] Mar, [facility] [place] [facility] [address] [id number] [place] [address] Mar, [facility] [place] [facility] [address] [id number] [place] [address] Mar, [facility] [place] [facility] [address] [facility] [id number] [place] [address] Mar, [facility] [place] [facility] [address] [id number] [place] [address] Mar, [facility] [place] [facility] [address] [id number] [place] [address] Mar, [facility] [place] [facility] [address] [id number] [place] [address] Mar, [facility] [place] [facility] [address] [facility] [id number] [place] [address] Mar, [facility] [place] [facility] [address] [facility] [id number] [place] [address] Mar, [facility] [place] [facility] [address] [facility] [id number] [place] [address] Mar, [facility] [place] [facility] [address] [id number] [place] [address] Mar, [facility] [place] [facility] [address] [id number] [place] [address] 20 Mar, 2013 [facility] [place] [facility] [address] [facility] [id number] [place] [address] 20 Mar, 2013 [facility] [place] [facility] [address] [id number] [place] [address] 16 Mar, 2013 [facility] [place] [facility] [address] [id number] [place] [address] 16 Mar, 2014 [facility] [place] [facility] [address] [id number] [place] [address] 15 Mar, 2013 [facility] [place] [facility] [address] [id number] [place] [address] 14 Mar, 2014 [facility] [place] [facility] [address] [id number] [place] [address] 14 Mar, 2013 [facility] [place] [facility] [address] [id number] [place] [address] 14 Mar, 2014 [facility] [place] [facility] [address] [id number] [place] [address] 14 Mar, 2013 [facility] [place] [facility] [address] [id number] [place] [address] 09 Mar, 2014 [facility] [place] [facility] [address] [id number] [place] [address] 09 Mar, 2013 [facility] [place] [facility] [address] [id number] [place] [address] 09 Mar, 2013 [facility] [place] [facility] [address] [id number] [place] [address] 09 Mar, 2013 [facility] [place] [facility] [address] [id number] [place] [address] 30 Sep, 2013 [facility] [place] [facility] [address] [id number] [place] [address] 30 Sep, 2013 [facility] [place] [facility] [address] [id number] [place] [address] 30 Sep, 2013 [facility] [place] [facility] [address] [id number] [place] [address] 30 Sep, 2013 [facility] [place] [facility] [address] [id number] [place] [address] Feb, 2013 [facility] [place] [facility] [address] [id number] [place] [address] Feb, 2013 [facility] [place] [facility] [address] [id number] [place] [address] Feb, 2013 [facility] [place] [facility] [address] [id number] [place] [address] Feb, 2013 [facility] [place] [facility] [address] [id number] [place] [address] Feb, 2013 [facility] [place] [facility] [address] [id number] [place] [address] Feb, 2013 [facility] [place] [facility] [address] [id number] [place] [address] Feb, 2013 [facility] [place] [facility] [address] [id number] [place] [address] Feb, 2013 [facility] [place] [facility] [address] [id number] [place] [address] Jan, [facility] [place] [facility] [address] [id number] [place] [address] Jan, [facility] [place] [facility] [address] [id number] [place] [address] Jan, [facility] [place] [facility] [address] [id number] [place] [address] Jan, [facility] [place] [facility] [address] [id number] [place] [address] Jan, [facility] [place] [facility] [address] [id number] [place] [address] Jan, [facility] [place] [facility] [address] [id number] [place] [address] Jan, [facility] [place] [facility] [address] [id number] [place] [address] Jan, [facility] [place] [facility] [address] [id number] [place] [address] Jan, [facility] [place] [facility] [address] [id number] [place] [address] Jan, [facility] [place] [facility] [address] [facility] [id number] [place] [address] Jan, [facility] [place] [facility] [address] [facility] [id number] [facility] [address] Jan, [facility] [place] [facility] [address] [facility] [id number] [place] [address] Jan, [facility] [place] [facility] [address] [facility] [id number] [place] [address] Dec, [facility] [place] [facility] [address] [facility] [id number] [place] [address] Dec, [facility] [place] [facility] [address] [facility] [id number] [facility] [address] Dec, [facility] [place] [facility] [address] [id number] [place] [address] Dec, [facility] [place] [facility] [address] [facility] [id number] [place] [address] Dec, [facility] [place] [facility] [address] [facility] [id number] [place] [address] Dec, [facility] [place] [facility] [address] [facility] [id number] [facility] [address] Dec, [facility] [place] [facility] [address] [id number] [place] [address] Dec, [facility] [place] [facility] [address] [facility] [id number] [place] [address] Dec, [facility] [place] [facility] [address] [id number] [facility] [address] Dec, [facility] [place] [facility] [address] [facility] [id number] [facility] [place] [address] Dec, [facility] [place] [facility] [address] [facility] [id number] [facility] [address] Dec, [facility] [place] [facility] [address] [facility] [id number] [place] [address] Dec, 2013 [facility] [place] [facility] [address] [facility] [id number] [facility] [address] Dec, 2013 [facility] [place] [facility] [address] [facility] [id number] [place] [address] Dec, 2013 [facility] [place] [facility] [address] [id number] [place] [address] Dec, 2013 [facility] [place] [facility] [address] [facility] [id number] [place] [address] Dec, 2013 [facility] [place] [facility] [address] [facility] [id number] [place] [address] Dec, 2013 [facility] [place] [facility] [address] [id number] [place] [address] Nov, [facility] [place] [facility] [address] [id number] [place] [address] Nov, [facility] [place] [facility] [address] [id number] [place] [address] Nov, [facility] [place] [facility] [address] [id number] [place] [address] Nov, [facility] [place] [facility] [address] [id number] [place] [address] Nov, [facility] [place] [facility] [address] [id number] [place] [address] Nov, [facility] [place] [facility] [address] [id number] [place] [address] Nov, [facility] [place] [facility] [address] [facility] [id number] [place] [address] Nov, [facility] [place] [facility] [address] [id number] [place] [address] Nov, [facility] [place] [facility] [address] [id number] [place] [address] Nov, [facility] [place] [facility] [address] [id number] [place] [address] Nov, [facility] [place] [facility] [address] [id number] [place] [address] Nov, [facility] [place] [facility] [address] [id number] [place] [address] Nov, [facility] [place] [facility] [address] [id number] [place] [address] Nov, [facility] [place] [facility] [address] [id number] [place] [address] Nov, [facility] [place] [facility] [address] [id number] [place] [address] Nov, [facility] [place] [facility] [address] [id number] [place] [address] Nov, [facility] [place] [facility] [address] [id number] [place] [address] Nov, [facility] [place] [facility] [address] [id number] [place] [address] Nov, [facility] [place] [facility] [address] [id number] [place] [address] Nov, [facility] [place] [facility] [address] [id number] [place] [address] October, [facility] [place] [facility] [address] [id number] [place] [address] October, [facility] [place] [facility] [address] [id number] [place] [address] October, [facility] [place] [facility] [address] [id number] [place] [address] October, [facility] [place] [facility] [address] [id number] [place] [address] Sep, [facility] [place] [facility] [address] [id number] [place] [address] Sep, [facility] [place] [facility] [address] [id number] [place] [address] Sep, [facility] [place] [facility] [address] [id number] [place] [address] 17 Sep, 2013 [facility] [place] [facility] [address] [facility] [id number] [facility] [address] Sep, [facility] [place] [facility] [address] [facility] [id number] [place] [address] Sep, [facility] [place] [facility] [address] [facility] [id number] [facility] [address] Sep, [facility] [place] [facility] [address] [id number] [place] [address] Sep, [facility] [place] [facility] [address] [facility] [id number] [place] [address] Sep, [facility] [place] [facility] [address] [id number] [place] [address] Aug, [facility] [place] [facility] [address] [id number] [place] [address] Aug, [facility] [place] [facility] [address] [id number] [place] [address] Aug, [facility] [place] [facility] [address] [facility] [id number] [facility] [address] Aug, [facility] [place] [facility] [address] [id number] [place] [address] Aug, [facility] [place] [facility] [address] [id number] [place] [address] Aug, [facility] [place] [facility] [address] [id number] [place] [address] Aug, [facility] [place] [facility] [address] [facility] [id number] [place] [address] Aug, [facility] [place] [facility] [address] [facility] [id number] [place] [address] Jul, [facility] [place] [facility] [address] [facility] [id number] [place] [address] Jul, [facility] [place] [facility] [address] [id number] [place] [address] Jun, [facility] [place] [facility] [address] [id number] [place] [address] Jun, [facility] [place] [facility] [address] [id number] [place] [address] Jun, [facility] [place] [facility] [address] [id number] [place] [address] Jun, [facility] [place] [facility] [address] [id number] [place] [address] Jun, [facility] [place] [facility] [address] [id number] [place] [address] Jun, [facility] [place] [facility] [address] [id number] [place] [address] Jun, [facility] [place] [facility] [address] [id number] [place] [address] Jun, [facility] [place] [facility] [address] [id number] [place] [address] Jun, [facility] [place] [facility] [address] [id number] [place] [address] Jun, [facility] [place] [facility] [address] [id number] [place] [address] Jun, [facility] [place] [facility] [address] [id number] [place] [address] Jun, [facility] [place] [facility] [address] [id number] [place] [address] May, [facility] [place] [facility] [address] [id number] [place] [address] May, [facility] [place] [facility] [address] [id number] [place] [address] May, [facility] [place] [facility] [address] [id number] [place] [address] May, [facility] [place] [facility] [address] [id number] [place] [address] May, [facility] [place] [facility] [address] [id number] [place] [address] May, [facility] [place] [facility] [address] [id number] [place] [address] May, [facility] [place] [facility] [address] [id number] [place] [address] May, [facility] [place] [facility] [address] [id number] [place] [address] May, [facility] [place] [facility] [address] [id number] [place] [address] May, [facility] [place] [facility] [address] [id number] [place] [address] May, [facility] [place] [facility] [address] [id number] [place] [address] May, [facility] [place] [facility] [address] [id number] [place] [address] May, [facility] [place] [facility] [address] [id number] [place] [address] Apr, [facility] [place] [facility] [address] [id number] [place] [address] Apr, [facility] [place] [facility] [address] [id number] [place] [address] Mar, [facility] [place] [facility] [address] [id number] [place] [address] Mar, [facility] [place] [facility] [address] [id number] [place] [address] 24 Feb, 2013 [facility] [place] [facility] [address] [id number] [place] [address] 23 Feb, 2013 [facility] [place] [facility] [address] [id number] [place] [address] 05 Feb, 2013 [facility] [place] [facility] [address] [id number] [place] [address] 04 Feb, 2013 [facility] [place] [facility] [address] [id number] [place] [address] 28 Jan, 2013 [facility] [place] [facility] [address] [id number] [place] [address] Jan, [facility] [place] [facility] [address] [facility] [id number] [place] [address] Jan, [facility] [place] [facility] [address] [id number] [place] [address] Jan, [facility] [place] [facility] [address] [id number] [place] [address] Jan, [facility] [place] [facility] [address] [id number] [place] [address] Jan, [facility] [place] [facility] [address] [facility] [id number] [place] [address] Dec, [facility] [place] [facility] [address] [id number] [place] [address] Dec, [facility] [place] [facility] [address] [id number] [place] [address] Dec, [facility] [place] [facility] [address] [id number] [place] [address] Dec, [facility] [place] [facility] [address] [id number] [place] [address] Nov, [facility] [place] [facility] [address] [id number] [place] [address] October, [facility] [place] [facility] [address] [id number] [place] [address] October, [facility] [place] [facility] [address] [id number] [place] [address] October, [facility] [place] [facility] [address] [id number] [place] [address] Sep, [facility] [place] [facility] [address] [id number] [place] [address] Sep, [facility] [place] [facility] [address] [id number] [place] [address] Jun, [facility] [place] [facility] [address] [id number] [place] [address] Jun, [facility] [place] [facility] [address] [id number] [place] [address] Jun, [facility] [place] [facility] [address] [id number] [place] [address] Apr, [facility] [place] [facility] [address] [id number] [place] [address] Apr, [facility] [place] [facility] [address] [id number] [place] [address] Apr, [facility] [place] [facility] [address] [id number] [place] [address] Apr, [facility] [place] [facility] [address] [id number] [place] [address] Mar, [facility] [place] [facility] [address] [id number] [place] [address] Mar, [facility] [place] [facility] [id number] [place] [address] Mar, [facility] [place] [facility] [address] [id number] [place] [address] Mar, [facility] [place] [facility] [address] [id number] [place] [address] Feb, [facility] [place] [facility] [address] [id number] [place] [address] Feb, [facility] [place] [facility] [address] [id number] [place] [address] Feb, [facility] [place] [facility] [address] [id number] [place] [address] Jan, [facility] [place] [facility] [address] [id number] [place] [address] Jan, [facility] [place] [facility] [address] [id number] [place] [address] Jan, [facility] [place] [facility] [address] [id number] [place] [address] Jan, [facility] [place] [facility] [address] [id number] [place] [address] Dec, [facility] [place] [facility] [address] [id number] [place] [address] Dec, [facility] [place] [facility] [address] [id number] [place] [address] Nov, [facility] [place] [facility] [address] [id number] [place] [address] Nov, [facility] [place] [facility] [address] [id number] [place] [address] October, [facility] [place] [facility] [address] [id number] [place] [address] October, [facility] [place] [facility] [address] [id number] [place] [address] October, [facility] [place] [facility] [address] [id number] [place] [address] Sep, [facility] [place] [facility] [address] [id number] [place] [address] Sep, [facility] [place] [facility] [address] [id number] [place] [address] Sep, [facility] [place] [facility] [address] [id number] [place] [address] Aug, [facility] [place] [facility] [address] [id number] [place] [address] Aug, [facility] [place] [facility] [address] [id number] [place] [address] Aug, [facility] [place] [facility] [address] [id number] [place] [address] 15 Aug, 2011 [facility] [place] [facility] [address] [id number] [place] [address] Aug, [facility] [place] [facility] [address] [id number] [place] [address] Jul, [facility] [place] [facility] [address] [id number] [place] [address] 16 Jul, 2011 [facility] [place] [facility] [address] [id number] [place] [address] Jul, [facility] [address] [id number] [place] [address] Jul, [facility] [address] [id number] [place] [address] Jul, [facility] [id number] [place] [address] Jul, [facility] [id number] [place] [address] Jul, [facility] [address] [id number] [place] [address] Jul, [facility] [id number] [place] [address] Jun, [facility] [id number] [place] [address] Jun, [facility] [id number] [place] [address] May, [facility] [id number] [place] [address] May, [facility] [id number] [place] [address] May, [facility] [id number] [place] [address] May, [facility] [id number] [place] [address] Apr, [facility] [address] [id number] [place] [address] Apr, [facility] [id number] [place] [address] Apr, [facility] [id number] [place] [address] Mar, [facility] [id number] [place] [address] Mar, [facility] [address] [id number] [place] [address] 18 Mar, 2011 [facility] [address] [id number] [place] [address] Mar, [facility] [address] [id number] [place] [address] Dec, [facility] [address] [id number] [place] [address] October, [facility] [address] [id number] [place] [address] May, [facility] [address] [id number] [place] [address] 13 May, 2010 [facility] [address] [id number] [place] [address] 13 May, 2010 [facility] [address] [id number] [place] [address] May, [facility] [address] [id number] [place] [address] Mar, [facility] [address] [id number] [place] [address] Mar, [facility] [address] [id number] [place] [address] May, [facility] [address] [id number] [place] [address] 30 May, 2009 [facility] [address] [id number] [place] [address] 08 May, 2009 [facility] [address] [id number] [place] [address] 08 May, 2009 [facility] [address] [id number] [place] [address] Apr, [facility] [address] [id number] [place] [address] Apr, [facility] [address] [id number] [place] [address] October, IMMUNIZATIONS No Known Immunizations SOCIAL HISTORY [...]
--- OUTSIDE RECORDS SUMMARY | 2020-01-13 11:53 | XMS REPORT ---
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 Name Role Phone MICAELAIVAN Unavailable PROBLEMS Type Condition ICD9-CM Code NCC69-AE Code Onset Dates Condition S tatus SNOMED Code Problem MRSA (methicillin resistant staph aureus) culture positive Z22.322 Active 977271997 Problem History of illicit drug use Z87.898 Ac tive 739961493 Problem Snoring R06.83 Active 76102931 Problem Dysthymic disorder F34.1 Active 7 9032632 Problem Impaired circulation I99.9 Active 81170275 Problem Arthritis M19.90 Active 8643008 Problem 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 Active 419864023 Problem Mild persistent asthma without complication J45.30 Active 550436055 Problem Varicose veins of both lower extremities I83.93 Active 19287007 Problem On home oxygen therapy Z99.81 Active 418936569171 Problem Mild chronic obstructive pulmonary disease J44.9 Active 008555398 Problem Neuropathy G62.9 Active 932325495 Problem Essential hypertension I10 Active 68464806 Problem Social phobia F40.10 Active 184224 02 Problem Major depressive disorder, recurrent episode, moderate F33.1 Active 571678127 Problem Mood disorder F39 Active 596546 05 Problem Psychotic disorder F29 Active 6 2961047 Problem Hypertension, benign I10 Active 70091952 Problem Body mass index (BMI) 40.0-44.9, adult Z68.41 Active 364904921 Problem Panic disorder without agoraphobia F41.0 Active 25150849 Problem Unspecified psychosis not du e to a substance or known physiological condition F29 Active 733234374 Problem Agoraphobia F40.00 Active 10794096 Problem Fatigue R53.83 Active 56120206 Problem Onychomycosis B35.1 Active 792828 008 Problem Major depressive disorder in full remission F32.5 Active 44324861 Problem Slow transit constipation K59.01 Acti ve 78435682 Problem Chronic obstructive pulmonary disease, unspecified COPD ty pe J44.9 Active 81569778 ALLERGIES No Information ENCOUNTERS Encounter Location Date Diagnosis [place] [address] [address] Nov, [place] [address] [address] Sep, [place] [address] [address] Sep, [place] [address] [address] Aug, [place] [address] [address] Aug, Neuropathy G62.9 ; Onychomycosis B35.1 ; Callus of foot L84 and Skin fissures R23.4 [place] [address] [address] Jul, [place] [address] [address] Jul, Morbid obesity E66.01 [place] [address] [address] Jul, Unspecified psychosis not due to a subst ance or known physiological condition F29 ; Chronic obstructive pulmonary disease, unspecified COPD type J44.9 and Body mass index (BMI) 40.0-44.9, adult Z68.41 [place] [address] [address] Jun, [address] [address] Jun, Morbid obesity E66.01 [place] [address] [address] May, Morbid obesity E66.01 [place] [address] [address] May, Encounter for immunization Z23 [place] [address] [address] May, Major depressive disorder, recurrent epi sode, moderate F33.1 ; Panic disorder without agoraphobia F41.0 and Morbid obesity E66.01 [place] [address] [address] May, Major depressive disorder in full remiss ion F32.5 and Panic disorder without agoraphobia F41.0 [place] [address] [address] Apr, Morbid obesity E66.01 [place] [address] [address] Apr, Slow transit constipation K59.01 and Lois lulitis of left lower extremity L03.116 [place] [address] [address] Apr, Morbid obesity E66.01 [place] [address] [address] Apr, [place] [address] [address] Apr, Major depressive disorder, recurrent epi sode, moderate F33.1 and Panic disorder without agoraphobia F41.0 [place] [address] [address] Mar, Viral upper respiratory tract infection J06.9 [place] [address] [address] 10 Mar, 2019 Bronchitis J40 and Encounter for immuniz ation Z23 [address] [address] Mar, Morbid obesity E66.01 [place] [address] [address] Feb, Major depressive disorder, recurrent epi sode, moderate F33.1 and Panic disorder without agoraphobia F41.0 [place] [address] [address] 10 Feb, 2019 Morbid obesity E66.01 [place] [address] [address] 06 Feb, 2019 Onychomycosis B35.1 ; Type 2 diabetes me llitus with diabetic neuropathic arthropathy E11.610 and Xerosis of skin L85.3 [place] [address] [address] Feb, Major depressive disorder, recurrent epi sode, moderate F33.1 ; Panic disorder without agoraphobia F41.0 and Morbid obesity E66.01 [place] [address] [address] Jan, Major depressive disorder in full remiss ion F32.5 and Panic disorder without agoraphobia F41.0 [place] [address] [address] Jan, Pneumonia of both lower lobes due to inf ectious organism J18.1 and Morbid obesity E66.01 [place] [address] [address] Jan, [place] [address] [address] Jan, Major depressive disorder in full remiss ion F32.5 and Panic disorder without agoraphobia F41.0 [place] [address] [address] Jan, [place] [address] [address] Jan, Major depressive disorder, recurrent epi sode, moderate F33.1 ; Panic disorder without agoraphobia F41.0 and Morbid obesity E66.01 [place] [address] [address] Dec, Bilious vomiting with nausea R11.14 ; Co ughing R05 and Choking, subsequent encounter T17.308D [place] [address] [address] 18 Dec, 2018 Morbid obesity E66.01 [place] [address] [place] [address] 16 Dec, 2018 Major depressive disorder, recurrent epi sode, moderate F33.1 and Panic disorder without agoraphobia F41.0 [place] [address] [address] 15 Dec, 2018 [place] [address] [place] [address] Dec, Major depressive disorder, recurrent epi sode, moderate F33.1 [place] [address] [address] 28 Nov, 2018 Major depressive disorder, recurrent epi sode, moderate F33.1 ; Panic disorder without agoraphobia F41.0 and Morbid obesity E66.01 [place] [address] [address] Nov, Morbid obesity E66.01 [place] [address] [address] Nov, Major depressive disorder, recurrent epi sode, moderate F33.1 and Panic disorder without agoraphobia F41.0 [facility] WALK IN [facility] [address] [facility] [id number] [address] [place] [address] 18 Nov, 2018 Allergic reaction, initial e ncounter T78.40XA and Morbid obesity E66.01 [place] [address] [address] 18 Nov, 2018 [place] [address] [address] 13 Nov, 2018 Morbid obesity E66.01 ; Swallowing probl em R13.10 and Hypertension, benign I10 [facility] WALK IN [facility] [address] [facility] [id number] [address] [place] [address] Nov, Morbid obesity E66.01 ; COPD exacerbation J44.1 and Non- recurrent acute suppurative otitis media of left ear without spontaneous rupture of tympanic membrane H66.002 [facility] [place] [address] [place] [id number] [place] [address] Nov, Onychomycosis B35.1 ; Neuropathy G62.9 a nd Fissure in skin of foot R23.4 [facility] [place] [address] [address] October, Major depressive disorder, recurrent epi sode, moderate F33.1 ; Panic disorder without agoraphobia F41.0 and Morbid obesity E66.01 [facility] IN [facility] [address] [facility] [id number] [address] [place] [address] October, Viral upper respiratory trac t infection J06.9 [facility] [place] [address] [address] October, [facility] [place] [address] [address] October, Major depressive disorder, recurrent epi sode, moderate F33.1 and Panic disorder without agoraphobia F41.0 [facility] [place] [address] [address] October, [facility] [place] [address] [address] October, [facility] [place] [address] [address] October, [facility] [place] [address] [address] October, [facility] [place] [address] [address] October, [facility] [place] [address] [address] October, [facility] [place] [address] [address] October, Major depressive disorder, recurrent epi sode, moderate F33.1 and Panic disorder without agoraphobia F41.0 [place] [address] [address] Sep, Morbid obesity E66.01 and Lumbar neuriti s M54.16 [place] [address] [address] Sep, Panic disorder without agoraphobia F41.0 and Major depressive disorder, recurrent episode, moderate F33.1 [facility] WALK IN CARE [address] [facility] [id number] [address] [place] [address] Sep, Gastroenteritis K52.9 ; Low back pain M54.5 ; Other chronic pain G89.29 and Morbid obesity E66.01 [place] [address] [address] Sep, Major depressive disorder, recurrent epi sode, moderate F33.1 ; Panic disorder without agoraphobia F41.0 and Social phobia F40.10 [place] [address] [address] Sep, Panic disorder without agoraphobia F41.0 [place] [address] [address] Sep, Panic disorder without agoraphobia F41.0 [place] [address] [address] Aug, Panic disorder without agoraphobia F41.0 ; Major depressive disorder, recurrent episode, moderate F33.1 ; Social phobia F40.10 ; Psychotic disorder F29 ; Tardive dyskinesia G24.01 and Morbid obesity E66.01 [place] [address] [address] Aug, Dysthymic disorder F34.1 and Psychotic d isorder F29 [place] [address] [address] Aug, Encounter for Medicare annual wellness e xam Z00.00 ; Morbid obesity E66.01 and 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.610 [place] [address] [address] Aug, Dysthymic disorder F34.1 and Psychotic d isorder F29 [place] [address] [address] Aug, Neuropathy G62.9 ; Onychomycosis B35.1 a nd Xerosis of skin L85.3 [place] [address] [address] 13 Jul, 2018 [place] [address] [address] Jul, Mood disorder F39 ; Wheezing R06.2 ; Diego sanchez, initial encounter T17.308A and Coughing R05 [place] [address] [address] Jul, Low back pain M54.5 [facility] WALK IN CARE [address] [facility] [id number] [address] [place] [address] Jun, Flu-like symptoms R68.89 ; B DE 45.0-49.9, adult Z68.42 ; COPD exacerbation J44.1 and Acute bronchitis J20.9 [place] [address] [address] Jun, [place] [address] [address] May, [place] [address] [address] May, Onychomycosis B35.1 and Type 2 diabetes mellitus with diabetic neuropathic arthropathy E11.610 [place] [address] [address] May, Low back pain M54.5 and Edema leg R60.0 [place] [address] [address] May, BMI 45.0-49.9, adult Z68.42 ; Well woman exam with routine gynecological exam Z01.419 and Breast cancer screening Z12.31 [place] [address] [address] 19 Apr, 2018 Arthritis M19.90 [place] [address] [address] 16 Apr, 2018 Arthritis M19.90 and Otalgia of both ear s H92.03 [place] [address] [address] 28 Feb, 2018 [place] [address] [address] Feb, Low back pain M54.5 ; Other chronic pain G89.29 ; Exertional asthma J45.990 and Encounter for immunization Z23 [place] [address] [address] Feb, Skin fissures R23.4 ; Neuropathy G62.9 a nd Onychomycosis B35.1 [place] [address] [address] 05 Feb, 2018 Dysthymic disorder F34.1 [place] [address] [address] Feb, [place] [address] [address] Jan, [place] [address] [address] Jan, Abrasion of right elbow, initial encount er S50.311A ; Abrasion, right knee, initial encounter S80.211A and Sprain of other ligament of right ankle, initial encounter S93.491A [place] [address] [address] Jan, [facility] WALK IN CARE [address] [facility] [id number] [address] [place] [address] Jan, Injury of left ankle, initia l encounter S99.912A ; Fall down stairs, initial encounter W10.8XXA and BMI 45.0-49.9, adult Z68.42 [place] [address] [address] Jan, COPD exacerbation J44.[address] [address] Jan, Dysfunction of both eustachian tubes H69 .83 [place] [address] [address] 08 Jan, 2018 Bronchitis J40 and Acute suppurative giovana tis media of left ear without spontaneous rupture of tympanic membrane, recurrence not specified H66.002 [place] [address] [address] Jan, [place] [address] [address] Jan, Bronchitis J40 and BMI 40.0-44.9, adult Z68.41 [place] [address] [address] Jan, [place] [address] [address] Dec, Gastric pain R10.9 [place] [address] [address] Dec, [address] [address] Dec, History of illicit drug use Z87.898 ; Ne uropathy G62.9 ; COPD (chronic obstructive pulmonary disease) with chronic bronchitis J44.9 and Acute pain of right knee M25.561 [place] [address] [address] Nov, [address] [address] Nov, Onychomycosis B35.1 and Contusion of lef t foot, subsequent encounter S90.32XD [address] [address] Nov, COPD exacerbation J44.[address] [address] Sep, [address] [address] Sep, Dysthymic disorder F34.1 ; Tobacco abuse Z72.0 ; Pain in right knee M25.561 ; Pain in left knee M25.562 ; Other chronic pain G89.29 and BMI 40.0- 44.9, adult Z68.[address] [address] Aug, Major depressive disorder, recurrent epi sode, moderate F33.1 and Social phobia F40.[address] [address] Aug, Dysthymic disorder F34.1 ; Non-pressure chronic ulcer of left thigh, unspecified ulcer stage L97.129 ; Tobacco abuse Z72.0 ; Mild chronic obstructive pulmonary disease J44.9 and Forgetfulness R68.[address] [address] 09 Aug, 2017 Onychomycosis B35.1 ; Fissure in skin of foot R23.4 and Foot callus L84 [facility]ARE [address] [place], [place] [id number] [address] [place] [address] Jul, Right medial knee pain M25.5 61 ; Upper respiratory tract infection, unspecified type J06.9 and BMI 40.0-44.9, adult Z68.41 [facility] W[facility] IN [place] [id number] [address] [place] [address] 08 Jul, 2017 Nausea and vomiting, intract ability of vomiting not specified, unspecified vomiting type R11.2 ; Left ear pain H92.02 and Gastric pain R10.9 [place] [address] [address] Apr, Encounter for immunization Z23 [facility] [place] [address] [address] Apr, Onychomycosis B35.1 ; Xerosis of skin L8 5.3 ; Neuropathy G62.9 and 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 arthropathy E11.610 [place] [address] [address] Jan, Onychomycosis B35.1 and Neuropathy G62.9 [place] [address] [address] Dec, [place] [address] [address] Dec, [place] [address] [address] Nov, [facility] [place] [address] [address] Aug, [facility] [place] [address] [address] Aug, [facility] [place] [address] [address] Jul, [place] [address] [address] Jul, [facility] [place] [address] [address] Jul, Decubitus ulcer of left thigh, stage 2 L 89.892 [facility] [place] [address] [address] Jul, Decubitus ulcer of left thigh, stage 2 L 89.892 [facility] [place] [address] [address] Jul, [facility] [place] [address] [address] 15 Jul, 2016 Decubitus ulcer of left thigh, stage 2 L 89.892 [place] [address] [address] 14 Jul, 2016 [place] [address] [address] 13 Jul, 2016 Cellulitis of other specified site L03.8 18 ; Illicit drug use F19.90 and Decubitus ulcer of left thigh, stage 2 L89.892 [place] [address] [address] 08 Jul, 2016 [place] [address] [address] 06 Jul, 2016 Cellulitis of right breast N61.0 [place] [address] [address] Jun, [place] [address] [address] Jun, [place] [address] [address] Jun, Wheezing R06.2 and Arthralgia, unspecifi ed joint M25.50 [place] [address] [address] May, [place] [address] [address] May, [place] [address] [address] May, [place] [address] [address] May, Shortness of breath R06.02 [place] [address] [address] May, Onychomycosis B35.1 and Fissure in skin of foot R23.4 [place] [address] [address] Apr, [facility] W[facility] IN CARE [address] [facility] [id number] [address] [place] [address] 18 Apr, 2016 Dizziness R42 [facility] [place] [address] [place] [id number] [place] [address] 14 Apr, 2016 Shortness of breath R06.02 ; Essential h ypertension I10 ; Dizziness R42 and On home oxygen therapy Z99.81 [facility] [place] [address] [address] Apr, [facility] [place] [address] [address] 08 Apr, 2016 [facility] [place] [address] [address] Apr, [facility] [place] [address] [address] Apr, [facility] [place] [address] [address] Apr, [facility] [place] [address] [address] Apr, [facility] [place] [address] [address] Apr, [facility] [place] [address] [address] Mar, Mild chronic obstructive pulmonary disea se J44.9 [facility] [place] [address] [address] Mar, [facility] [place] [address] [address] Mar, Epigastric pain R10.13 ; Low back pain M 54.5 ; Other chronic pain G89.29 and Breast cancer screening Z12.39 [facility] [place] [address] [address] 06 Mar, 2016 [facility] [place] [address] [address] Mar, [facility] [place] [address] [address] Feb, [facility] [place] [address] [address] 08 Feb, 2016 [facility] [place] [address] [address] 02 Feb, 2016 Fissure in skin of foot R23.4 and Onycho mycosis B35.1 [facility] [place] [address] [address] Jan, Agoraphobia F40.00 [facility] [place] [address] [address] Dec, Agoraphobia F40.00 [place] [address] [address] Dec, Mild persistent asthma without complicat ion J45.30 ; Dysthymic disorder F34.1 and Upper respiratory tract infection, unspecified type J06.9 [facility] [place] [address] [address] Nov, Agoraphobia F40.00 [place] [address] [address] October, Agoraphobia F40.00 [facility] [place] [address] [address] Sep, Panic disorder without agoraphobia F41.0 ; Agoraphobia F40.00 and Dysthymic disorder F34.1 [facility] [place] [address] [address] Sep, Panic attacks F41.0 [facility] [place] [address] [address] Sep, [facility] [place] [address] [address] Sep, Panic disorder without agoraphobia F41.0 ; Varicose veins of both lower extremities I83.93 and Fatigue R53.83 [place] [address] [address] 14 Sep, 2015 Fatigue R53.83 [place] [address] [address] 05 Sep, 2015 [place] [address] [address] Aug, [place] [address] [address] Aug, [place] [address] [address] Aug, Type 2 diabetes mellitus with diabetic n europathic arthropathy E11.610 [place] [address] [address] Aug, Panic disorder without agoraphobia F41.0 ; Agoraphobia F40.00 and Dysthymic disorder F34.1 [place] [address] [address] Aug, Shortness of breath R06.02 ; Panic attac ks F41.0 ; COPD (chronic obstructive pulmonary disease) J44.9 ; Tobacco abuse Z72.0 ; Family history of diabetes mellitus Z83.3 and Weight gain R63.5 [place] [address] [address] Aug, [place] [address] [address] Jul, [place] [address] [address] Jun, Onychomycosis B35.1 ; Neuropathy G62.9 a nd Impaired circulation I99.9 [place] [address] [address] 09 Mar, 2015 Fissure in skin of foot R23.4 ; Onychomy cosis B35.1 and 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 [facility] [place] [address] [place] [id number] [place] [address] 18 Feb, 2015 Family history of coronary arteriosclero sis V17.3 [facility] [place] [address] [place] [id number] [place] [address] 15 Feb, 2015 Allergic rhinitis due to pollen 477.0 ; Unspecified breast screening V76.10 ; Anxiety 300.00 and Family history of coronary arteriosclerosis V17.3 [facility] [place] [address] [place] [id number] [place] [address] Jan, [facility] [place] [address] [address] Dec, [facility] [place] [address] [address] Dec, Onychomycosis 110.1 and Skin fissures 70 9.8 [facility] [place] [address] [place] [id number] [place] [address] Sep, [facility] [place] [address] [address] Sep, [facility] [place] [address] [address] Aug, [facility] [place] [address] [address] Aug, [facility] [place] [address] [address] Jul, [facility] [place] [address] [address] Jul, [facility] [place] [address] [address] Jun, [facility] [place] [address] [address] Jun, [facility] [place] [address] [address] Jun, [facility] [place] [address] [place] [id number] [place] [address] Jun, [facility] [address] [id number] [place] [address] Jun, [facility] [address] [id number] [place] [address] May, [facility] [address] [id number] [place] [address] May, [facility] [address] [id number] [place] [address] May, [facility] [address] [id number] [place] [address] May, [facility] [address] [id number] [place] [address] May, [facility] [address] [id number] [place] [address] May, [facility] [address] [id number] [place] [address] May, [facility] [address] [id number] [place] [address] May, [facility] [address] [id number] [place] [address] Apr, [facility] [address] [id number] [place], [place] [address] Apr, [facility] [place] [facility] [address] [id number] [place] [address] Apr, [facility] [place] [facility] [address] [id number] [place] [address] Apr, [facility] [place] [facility] [address] [id number] [place] [address] Apr, [facility] [place] [facility] [address] [id number] [place] [address] Apr, [facility] [place] [facility] [address] [id number] [place] [address] Apr, [facility] [place] [facility] [address] [id number] [place] [address] Apr, 2013 [facility] [place] [facility] [address] [id number] [place] [address] Apr, 2013 [facility] [place] [facility] [address] [id number] [place] [address] Apr, 2013 [facility] [place] [facility] [address] [id number] [place] [address] Mar, [facility] [place] [facility] [address] [id number] [place] [address] Mar, [facility] [place] [facility] [address] [id number] [place] [address] Mar, [facility] [place] [facility] [address] [id number] [place] [address] Mar, [facility] [place] [facility] [address] [id number] [place] [address] Mar, [facility] [place] [facility] [address] [id number] [place] [address] Mar, [facility] [place] [facility] [address] [id number] [place] [address] Mar, [facility] [place] [facility] [address] [id number] [place] [address] Mar, [facility] [place] [facility] [address] [id number] [place] [address] 24 Mar, 2014 [facility] [place] [facility] [address] [id number] [place] [address] Mar, [facility] [place] [facility] [address] [id number] [place] [address] Mar, [facility] [place] [facility] [address] [id number] [place] [address] Mar, [facility] [place] [facility] [address] [id number] [place] [address] Mar, [facility] [place] [facility] [address] [id number] [place] [address] 22 Mar, 2013 [facility] [place] [facility] [address] [facility] [id number] [place] [address] 22 Mar, 2013 [facility] [place] [facility] [address] [facility] [id number] [place] [address] 20 Mar, 2013 [facility] [place] [facility] [address] [id number] [place] [address] 20 Mar, 2013 [facility] [place] [facility] [address] [facility] [id number] [place] [address] 16 Mar, 2013 [facility] [place] [facility] [address] [facility] [id number] [place] [address] 16 Mar, 2013 [facility] [place] [facility] [address] [id number] [place] [address] 15 Mar, 2013 [facility] [place] [facility] [address] [id number] [place] [address] 14 Mar, 2013 [facility] [place] [facility] [address] [id number] [place] [address] 14 Mar, 2013 [facility] [place] [facility] [address] [id number] [place] [address] 14 Mar, 2013 [facility] [place] [facility] [address] [id number] [place] [address] 14 Mar, 2013 [facility] [place] [facility] [address] [id number] [place] [address] 09 Mar, 2013 [facility] [place] [facility] [address] [id number] [place] [address] 09 Mar, 2013 [facility] [place] [facility] [address] [id number] [place] [address] 09 Mar, 2013 [facility] [place] [facility] [address] [id number] [place] [address] 09 Mar, 2013 [facility] [place] [facility] [address] [id number] [place] [address] 30 Feb, 2013 [facility] [place] [facility] [address] [id number] [place] [address] 30 Feb, 2013 [facility] [place] [facility] [address] [id number] [place] [address] 30 Feb, 2013 [facility] [place] [facility] [address] [id number] [place] [address] 30 Feb, 2013 [facility] [place] [facility] [address] [facility] [id number] [place] [address] Feb, 2013 [facility] [place] [facility] [address] [id number] [place] [address] Feb, 2013 [facility] [place] [facility] [address] [facility] [id number] [place] [address] Feb, 2013 [facility] [place] [facility] [address] [id number] [place] [address] Feb, 2013 [facility] [place] [facility] [address] [id number] [place] [address] Feb, 2013 [facility] [place] [facility] [address] [id number] [place] [address] Feb, 2013 [facility] [place] [facility] [address] [id number] [place] [address] Feb, 2013 [facility] [place] [facility] [address] [id number] [place] [address] Feb, 2013 [facility] [place] [facility] [address] [id number] [place] [address] Jan, [facility] [place] [facility] [address] [id number] [place] [address] Jan, [facility] [place] [facility] [address] [id number] [place] [address] Jan, [facility] [place] [facility] [address] [id number] [place] [address] Jan, [facility] [place] [facility] [address] [id number] [place] [address] Jan, [facility] [place] [facility] [address] [id number] [place] [address] Jan, [facility] [place] [facility] [address] [id number] [place] [address] Jan, [facility] [place] [facility] [address] [id number] [place] [address] Jan, [facility] [place] [facility] [address] [facility] [id number] [place] [address] Jan, [facility] [place] [facility] [address] [facility] [id number] [place] [address] Jan, [facility] [place] [facility] [address] [facility] [id number] [place] [address] Jan, [facility] [place] [facility] [address] [facility] [id number] [place] [address] Jan, [facility] [place] [facility] [address] [id number] [place] [address] Jan, [facility] [place] [facility] [address] [id number] [place] [address] Dec, [facility] [place] [facility] [address] [id number] [place] [address] Dec, [facility] [place] [facility] [address] [id number] [place] [address] Dec, [facility] [place] [facility] [address] [id number] [place] [address] Dec, [facility] [place] [facility] [address] [id number] [place] [address] Dec, [facility] [place] [facility] [address] [id number] [place] [address] Dec, [facility] [place] [facility] [address] [id number] [place] [address] Dec, [facility] [place] [facility] [address] [facility] [id number] [place] [address] Dec, [facility] [place] [facility] [address] [facility] [id number] [place] [address] Dec, [facility] [place] [facility] [address] [id number] [place] [address] Dec, [facility] [place] [facility] [address] [id number] [place] [address] Dec, 2013 [facility] [place] [facility] [address] [facility] [id number] [place] [address] Dec, 2013 [facility] [place] [facility] [address] [facility] [id number] [place] [address] Dec, 2013 [facility] [place] [facility] [address] [id number] [place] [address] Dec, 2013 [facility] [place] [facility] [address] [facility] [id number] [place] [address] Dec, 2013 [facility] [place] [facility] [address] [facility] [id number] [place] [address] Dec, 2013 [facility] [place] [facility] [address] [facility] [id number] [place] [address] Dec, 2013 [facility] [place] [facility] [address] [id number] [place] [address] Dec, 2013 [facility] [place] [facility] [address] [id number] [place] [address] Nov, [facility] [place] [facility] [address] [id number] [place] [address] Nov, [facility] [place] [facility] [address] [id number] [place] [address] Nov, [facility] [place] [facility] [address] [id number] [place] [address] 24 Nov, 2013 [facility] [place] [facility] [address] [id number] [place] [address] 16 Nov, 2013 [facility] [place] [facility] [address] [facility] [id number] [place] [address] 16 Nov, 2013 [facility] [place] [facility] [address] [id number] [place] [address] 16 Nov, 2013 [facility] [place] [facility] [address] [id number] [place] [address] 16 Nov, 2013 [facility] [place] [facility] [address] [id number] [place] [address] 12 Nov, 2013 [facility] [place] [facility] [address] [id number] [place] [address] Nov, [facility] [place] [facility] [address] [id number] [place] [address] Nov, [facility] [place] [facility] [address] [facility] [id number] [place] [address] Nov, [facility] [place] [facility] [address] [id number] [place] [address] Nov, [facility] [place] [facility] [address] [facility] [id number] [place] [address] Nov, [facility] [place] [facility] [address] [facility] [id number] [place] [address] Nov, [facility] [place] [facility] [address] [id number] [place] [address] Nov, [facility] [place] [facility] [address] [id number] [place] [address] Nov, [facility] [place] [facility] [address] [id number] [place] [address] Nov, [facility] [place] [facility] [address] [id number] [place] [address] Nov, [facility] [place] [facility] [address] [id number] [place] [address] Nov, [facility] [place] [facility] [address] [id number] [place] [address] October, [facility] [place] [facility] [address] [id number] [place] [address] October, [facility] [place] [facility] [address] [facility] [id number] [place] [address] October, [facility] [place] [facility] [address] [id number] [place] [address] October, [facility] [place] [facility] [address] [id number] [place] [address] Sep, [facility] [place] [facility] [address] [id number] [place] [address] Sep, [facility] [place] [facility] [address] [facility] [id number] [place] [address] Sep, [facility] [place] [facility] [address] [id number] [place] [address] Sep, [facility] [place] [facility] [address] [id number] [place] [address] Sep, [facility] [place] [facility] [address] [id number] [place] [address] Sep, [facility] [place] [facility] [address] [facility] [id number] [place] [address] Sep, [facility] [place] [facility] [address] [id number] [place] [address] Sep, [facility] [place] [facility] [address] [id number] [place] [address] Sep, [facility] [place] [facility] [address] [id number] [place] [address] Aug, [facility] [place] [facility] [address] [id number] [place] [address] Aug, [facility] [place] [facility] [address] [id number] [place] [address] Aug, [facility] [place] [facility] [address] [id number] [place] [address] Aug, [facility] [place] [facility] [address] [id number] [place] [address] Aug, [facility] [place] [facility] [address] [id number] [place] [address] Aug, [facility] [place] [facility] [address] [id number] [place] [address] Aug, [facility] [place] [facility] [address] [id number] [place] [address] Aug, [facility] [place] [facility] [address] [id number] [place] [address] Jul, [facility] [place] [facility] [address] [id number] [place] [address] Jul, [facility] [place] [facility] [address] [id number] [place] [address] Jun, [facility] [place] [facility] [address] [id number] [place] [address] Jun, [facility] [place] [facility] [address] [id number] [place] [address] Jun, [facility] [place] [facility] [address] [id number] [place] [address] Jun, [facility] [place] [facility] [address] [id number] [place] [address] Jun, [facility] [place] [facility] [address] [id number] [place] [address] Jun, [facility] [place] [facility] [address] [id number] [place] [address] Jun, [facility] [place] [facility] [address] [id number] [place] [address] Jun, [facility] [place] [facility] [address] [id number] [place] [address] Jun, [facility] [place] [facility] [address] [id number] [place] [address] Jun, [facility] [place] [facility] [address] [id number] [place] [address] Jun, [facility] [place] [facility] [address] [id number] [place] [address] Jun, [facility] [place] [facility] [address] [id number] [place] [address] May, [facility] [place] [facility] [address] [id number] [place] [address] May, [facility] [place] [facility] [address] [id number] [place] [address] May, [facility] [place] [facility] [address] [id number] [place] [address] May, [facility] [place] [facility] [address] [id number] [place] [address] 31 May, 2013 [facility] [place] [facility] [address] [id number] [place] [address] May, [facility] [place] [facility] [address] [id number] [place] [address] May, [facility] [place] [facility] [address] [id number] [place] [address] May, [facility] [place] [facility] [address] [id number] [place] [address] May, [facility] [place] [facility] [address] [id number] [place] [address] May, [facility] [place] [facility] [address] [id number] [place] [address] May, [facility] [place] [facility] [address] [id number] [place] [address] May, [facility] [place] [facility] [address] [id number] [place] [address] May, [facility] [place] [facility] [address] [id number] [place] [address] Apr, [facility] [place] [facility] [address] [id number] [place] [address] Apr, [facility] [place] [facility] [address] [id number] [place] [address] Mar, [facility] [place] [facility] [address] [id number] [place] [address] Mar, [facility] [place] [facility] [address] [id number] [place] [address] 24 Feb, 2013 [facility] [place] [facility] [address] [id number] [place] [address] 23 Feb, 2013 [facility] [place] [facility] [address] [id number] [place] [address] 05 Sep2012 [facility] [place] [facility] [address] [id number] [place] [address] Feb, [facility] [place] [facility] [address] [id number] [place] [address] Jan, [facility] [place] [facility] [address] [id number] [place] [address] Jan, [facility] [place] [facility] [address] [id number] [place] [address] Jan, [facility] [place] [facility] [address] [id number] [place] [address] Jan, [facility] [place] [facility] [address] [id number] [place] [address] Jan, [facility] [place] [facility] [address] [id number] [place] [address] Jan, [facility] [place] [facility] [address] [id number] [place] [address] Dec, [facility] [place] [facility] [address] [id number] [place] [address] Dec, [facility] [place] [facility] [address] [id number] [place] [address] Dec, [facility] [place] [facility] [address] [id number] [place] [address] Dec, [facility] [place] [facility] [address] [id number] [place] [address] Nov, [facility] [place] [facility] [address] [id number] [place] [address] October, [facility] [place] [facility] [address] [id number] [place] [address] October, [facility] [place] [facility] [address] [id number] [place] [address] October, [facility] [place] [facility] [address] [id number] [place] [address] Sep, [facility] [place] [facility] [address] [id number] [place] [address] Sep, [facility] [place] [facility] [address] [id number] [place] [address] Jun, [facility] [place] [facility] [address] [id number] [place] [address] Jun, [facility] [place] [facility] [address] [id number] [place] [address] Jun, [facility] [place] [facility] [address] [id number] [place] [address] Apr, [facility] [place] [facility] [address] [id number] [place] [address] Apr, [facility] [place] [facility] [address] [id number] [place] [address] Apr, [facility] [place] [facility] [address] [id number] [place] [address] Apr, [facility] [place] [facility] [address] [id number] [place] [address] Mar, [facility] [place] [facility] [address] [id number] [place] [address] Mar, [facility] [place] [facility] [address] [id number] [place] [address] Mar, [facility] [place] [facility] [address] [id number] [place] [address] Mar, [facility] [place] [facility] [address] [id number] [place] [address] 29 Feb, 2012 [facility] [place] [facility] [address] [id number] [place] [address] 27 Feb, 2012 [facility] [place] [facility] [address] [id number] [place] [address] 20 Feb, 2012 [facility] [place] [facility] [address] [id number] [place] [address] 30 Jan, 2012 [facility] [place] [facility] [address] [id number] [place] [address] 16 Jan, 2012 [facility] [place] [facility] [address] [id number] [place] [address] Jan, [facility] [place] [facility] [address] [id number] [place] [address] Jan, [facility] [place] [facility] [address] [id number] [place] [address] Dec, [facility] [place] [facility] [address] [id number] [place] [address] Dec, [facility] [place] [facility] [address] [id number] [place] [address] Nov, [facility] [place] [facility] [address] [id number] [place] [address] Nov, [facility] [place] [facility] [address] [id number] [place] [address] October, [facility] [place] [facility] [address] [id number] [place] [address] October, [facility] [place] [facility] [address] [id number] [place] [address] October, [facility] [place] [facility] [address] [id number] [place] [address] Sep, [facility] [place] [facility] [address] [id number] [place] [address] Sep, [facility] [place] [facility] [address] [id number] [place] [address] Sep, [facility] [place] [facility] [address] [id number] [place] [address] Aug, [facility] [place] [facility] [address] [id number] [place] [address] Aug, [facility] [place] [facility] [address] [id number] [place] [address] Aug, [facility] [place] [facility] [address] [id number] [place] [address] Aug, [facility] [place] [facility] [address] [id number] [place] [address] Aug, [facility] [place] [facility] [address] [id number] [place] [address] Jul, [facility] [address] [id number] [place] [address] Jul, [facility] [place] [facility] [address] [id number] [place] [address] Jul, [facility] [place] [facility] [address] [id number] [place] [address] Jul, [facility] [address] [id number] [place] [address] Jul, [facility] [address] [id number] [place] [address] Jul, [facility] [address] [id number] [place] [address] Jul, [facility] [address] [id number] [place] [address] Jul, [facility] [address] [id number] [place] [address] Jun, [facility] [address] [id number] [place] [address] Jun, [facility] [address] [id number] [place] [address] May, [facility] [address] [id number] [place] [address] May, [facility] [address] [id number] [place] [address] May, [facility] [address] [id number] [place] [address] May, [facility] [address] [id number] [place] [address] Apr, [facility] [address] [id number] [place] [address] Apr, [facility] [address] [id number] [place] [address] Apr, [facility] [address] [id number] [place] [address] 18 Mar, 2011 [facility] [address] [facility] [id number] [place] [address] 18 Mar, 2011 [facility] [address] [id number] [place] [address] 18 Mar, 2011 [facility] [address] [id number] [place] [address] 2011 [facility] [address] [id number] [place] [address] Dec, [facility] [address] [id number] [place] [address] October, [facility] [address] [id number] [place] [address] May, [facility] [address] [id number] [place] [address] 13 May, 2010 [facility] [address] [id number] [place] [address] 13 May, 2010 [facility] [address] [id number] [place] [address] May, [facility] [address] [id number] [place] [address] Mar, [facility] [address] [id number] [place] [address] Mar, [facility] [address] [id number] [place] [address] May, [facility] [address] [id number] [place] [address] 30 May, 2009 [facility] [address] [id number] [place] [address] 08 May, 2009 [facility] [address] [id number] [place] [address] 08 May, 2009 [facility] [address] [id number] [place] [address] Apr, [facility] [place] [address] [facility] [id number] [place] [address] Apr, [facility] [place] [address] [facility] [id number] [place] [address] October, IMMUNIZATIONS No Known Immunizations SOCIAL HISTORY Never Assessed REASON FOR VISIT 3 MO F/U Patel Garza MA PLAN OF CARE Activity Details Follow Up 3 Months Reason: VITAL SIGNS Height 64 in 2018-08-16 Blood pressure systolic 114 mmHg 2018-08-16 Blood pressure diastolic 62 mmHg 2018-08-16 MEDICATIONS Unknown Medications RESULTS No Results PROCEDURES Procedure Date Ordered Result Body Site DEBRIDE NAIL, 6 OR MORE August 16, 2018 INSTRUCTIONS MEDICATIONS ADMINISTERED No Known Medications [...]
--- OUTSIDE RECORDS SUMMARY | 2020-01-13 11:54 | XMS REPORT ---
Author Author Monique RAHMAN [facility] Address [address] [place] [address] Care Team Providers Care Senior It Specialist Name Role Phone RASHEDE RAHMAN Unavailable PROBLEMS Type Condition ICD9-CM Code GXY94-TM Code Onset Dates Condition S tatus SNOMED Code Problem MRSA (methicillin resistant staph aureus) culture positive Z22.322 Active 844965437 Problem History of illicit drug use Z87.898 Ac tive 181964428 Problem Snoring R06.83 Active 06353984 Problem Dysthymic disorder F34.1 Active 7 1803190 Problem Impaired circulation I99.9 Active 47475669 Problem Arthritis M19.90 Active 0283891 Problem 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 Active 302647072 Problem Mild persistent asthma without complication J45.30 Active 638365009 Problem Varicose veins of both lower extremities I83.93 Active 53504023 Problem On home oxygen therapy Z99.81 Active 704595795847 Problem Mild chronic obstructive pulmonary disease J44.9 Active 189926977 Problem Neuropathy G62.9 Active 665852819 Problem Essential hypertension I10 Active 32550558 Problem Social phobia F40.10 Active 803578 02 Problem Major depressive disorder, recurrent episode, moderate F33.1 Active 530263627 Problem Mood disorder F39 Active 056561 05 Problem Psychotic disorder F29 Active 6 9672314 Problem Hypertension, benign I10 Active 58767242 Problem Body mass index (BMI) 40.0-44.9, adult Z68.41 Active 170166189 Problem Panic disorder without agoraphobia F41.0 Active 98009239 Problem Unspecified psychosis not du e to a substance or known physiological condition F29 Active 398801348 Problem Agoraphobia F40.00 Active 54071141 Problem Fatigue R53.83 Active 04032564 Problem Onychomycosis B35.1 Active 885133 008 Problem Major depressive disorder in full remission F32.5 Active 61940928 Problem Slow transit constipation K59.01 Acti ve 28571408 Problem Chronic obstructive pulmonary disease, unspecified COPD ty pe J44.9 Active 64095775 ALLERGIES No Information ENCOUNTERS Encounter Location Date Diagnosis [place] [address] [address] Sep, [place] [address] [address] Sep, [place] [address] [address] Aug, [place] [address] [address] Aug, [place] [address] [address] Jul, [place] [address] [address] Jul, Morbid obesity E66.01 [place] [address] [address] Jul, Unspecified psychosis not due to a subst ance or known physiological condition F29 ; Chronic obstructive pulmonary disease, unspecified COPD type J44.9 and Body mass index (BMI) 40.0-44.9, adult Z68.41 [place] [address] [address] Jun, [place] [address] [address] Jun, Morbid obesity E66.01 [place] [address] [address] May, Morbid obesity E66.01 [place] [address] [address] May, Encounter for immunization Z23 [place] [address] [address] May, Major depressive disorder, recurrent epi sode, moderate F33.1 ; Panic disorder without agoraphobia F41.0 and Morbid obesity E66.01 [place] [address] [address] May, Major depressive disorder in full remiss ion F32.5 and Panic disorder without agoraphobia F41.0 [place] [address] [address] Apr, Morbid obesity E66.01 [place] [address] [address] Apr, Slow transit constipation K59.01 and Lois lulitis of left lower extremity L03.[address] [address] Apr, Morbid obesity E66.[address] [address] Apr, [address] [address] Apr, Major depressive disorder, recurrent epi sode, moderate F33.1 and Panic disorder without agoraphobia F41.[address] [address] Mar, Viral upper respiratory tract infection J06.[address] [address] Mar, Bronchitis J40 and Encounter for immuniz ation Z23 [address] [address] Mar, Morbid obesity E66.[address] [address] Feb, Major depressive disorder, recurrent epi sode, moderate F33.1 and Panic disorder without agoraphobia F41.[address] [address] Feb, Morbid obesity E66.01 [place] [address] [address] Feb, Onychomycosis B35.1 ; Type 2 diabetes me llitus with diabetic neuropathic arthropathy E11.610 and Xerosis of skin L85.3 [place] [address] [address] Feb, Major depressive disorder, recurrent epi sode, moderate F33.1 ; Panic disorder without agoraphobia F41.0 and Morbid obesity E66.01 [place] [address] [address] Jan, Major depressive disorder in full remiss ion F32.5 and Panic disorder without agoraphobia F41.0 [place] [address] [address] Jan, Pneumonia of both lower lobes due to inf ectious organism J18.1 and Morbid obesity E66.01 [place] [address] [address] Jan, [place] [address] [address] Jan, Major depressive disorder in full remiss ion F32.5 and Panic disorder without agoraphobia F41.0 [place] [address] [address] Jan, [place] [address] [address] Jan, Major depressive disorder, recurrent epi sode, moderate F33.1 ; Panic disorder without agoraphobia F41.0 and Morbid obesity E66.[address] [address] Dec, Bilious vomiting with nausea R11.14 ; Co ughing R05 and Choking, subsequent encounter T17.308D [place] [address] [address] Dec, Morbid obesity E66.01 [place] [address] [address] 16 Dec, 2018 Major depressive disorder, recurrent epi sode, moderate F33.1 and Panic disorder without agoraphobia F41.0 [place] [address] [address] Dec, [place] [address] [address] Dec, Major depressive disorder, recurrent epi sode, moderate F33.1 [place] [address] [address] Nov, Major depressive disorder, recurrent epi sode, moderate F33.1 ; Panic disorder without agoraphobia F41.0 and Morbid obesity E66.01 [place] [address] [address] Nov, Morbid obesity E66.01 [place] [address] [address] Nov, Major depressive disorder, recurrent epi sode, moderate F33.1 and Panic disorder without agoraphobia F41.0 [facility] [place] [id number] [place] [address] 18 Nov, 2018 Allergic reaction, initial e ncounter T78.40XA and Morbid obesity E66.01 [place] [address] [address] Nov, [place] [address] [address] 13 Nov, 2018 Morbid obesity E66.01 ; Swallowing probl em R13.10 and Hypertension, benign I10 [facility] [place] [id number] [place] [address] 07 Nov, 2018 Morbid obesity E66.01 ; COPD exacerbation J44.1 and Non- recurrent acute suppurative otitis media of left ear without spontaneous rupture of tympanic membrane H66.002 [place] [address] [address] 07 Nov, 2018 Onychomycosis B35.1 ; Neuropathy G62.9 a nd Fissure in skin of foot R23.4 [facility] [address] [place] [id number] [place] [address] October, Major depressive disorder, recurrent epi sode, moderate F33.1 ; Panic disorder without agoraphobia F41.0 and Morbid obesity E66.01 [facility] [address] [facility] [id number] [address] [place] [address] October, Viral upper respiratory trac t infection J06.9 [place] [address] [address] October, [facility] [address] [address] October, Major depressive disorder, recurrent epi sode, moderate F33.1 and Panic disorder without agoraphobia F41.0 [facility] [address] [address] October, [facility] [address] [address] October, [facility] [address] [address] October, [facility] [address] [address] October, [facility] [address] [address] October, [facility] [address] [address] October, [facility] [address] [address] October, Major depressive disorder, recurrent epi sode, moderate F33.1 and Panic disorder without agoraphobia F41.0 [facility] [address] [address] Sep, Morbid obesity E66.01 and Lumbar neuriti s M54.16 [place] [address] [address] Sep, Panic disorder without agoraphobia F41.0 and Major depressive disorder, recurrent episode, moderate F33.1 [facility] [address] [facility] [id number] [address] [place] [address] Sep, Gastroenteritis K52.9 ; Low back pain M54.5 ; Other chronic pain G89.29 and Morbid obesity E66.01 [facility] [address] [address] Sep, Major depressive disorder, recurrent epi sode, moderate F33.1 ; Panic disorder without agoraphobia F41.0 and Social phobia F40.10 [place] [address] [address] Sep, Panic disorder without agoraphobia F41.0 [facility] [address] [address] Sep, Panic disorder without agoraphobia F41.0 [place] [address] [address] Aug, Panic disorder without agoraphobia F41.0 ; Major depressive disorder, recurrent episode, moderate F33.1 ; Social phobia F40.10 ; Psychotic disorder F29 ; Tardive dyskinesia G24.01 and Morbid obesity E66.01 [place] [address] [address] Aug, Dysthymic disorder F34.1 and Psychotic d isorder F29 [place] [address] [address] Aug, Encounter for Medicare annual wellness e xam Z00.00 ; Morbid obesity E66.01 and 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.610 [place] [address] [address] Aug, Dysthymic disorder F34.1 and Psychotic d isorder F29 [place] [address] [address] Aug, Neuropathy G62.9 ; Onychomycosis B35.1 a nd Xerosis of skin L85.3 [place] [address] [address] Jul, [place] [address] [address] Jul, Mood disorder F39 ; Wheezing R06.2 ; Diego sanchez, initial encounter T17.308A and Coughing R05 [place] [address] [address] Jul, Low back pain M54.5 [facility] [address] [facility] [id number] [address] [place] [address] Jun, Flu-like symptoms R68.89 ; B SC 45.0-49.9, adult Z68.42 ; COPD exacerbation J44.1 and Acute bronchitis J20.9 [place] [address] [address] Jun, [place] [address] [address] May, [place] [address] [address] May, Onychomycosis B35.1 and Type 2 diabetes mellitus with diabetic neuropathic arthropathy E11.610 [place] [address] [address] May, Low back pain M54.5 and Edema leg R60.0 [place] [address] [address] May, BMI 45.0-49.9, adult Z68.42 ; Well woman exam with routine gynecological exam Z01.419 and Breast cancer screening Z12.31 [place] [address] [address] Apr, Arthritis M19.90 [place] [address] [address] 16 Apr, 2018 Arthritis M19.90 and Otalgia of both ear s H92.03 [place] [address] [address] 28 Feb, 2018 [place] [address] [address] 28 Feb, 2018 Low back pain M54.5 ; Other chronic pain G89.29 ; Exertional asthma J45.990 and Encounter for immunization Z23 [place] [address] [address] 21 Feb, 2018 Skin fissures R23.4 ; Neuropathy G62.9 a nd Onychomycosis B35.1 [place] [address] [address] 05 Feb, 2018 Dysthymic disorder F34.1 [place] [address] [address] 04 Feb, 2018 [place] [address] [address] Jan, [place] [address] [address] Jan, Abrasion of right elbow, initial encount er S50.311A ; Abrasion, right knee, initial encounter S80.211A and Sprain of other ligament of right ankle, initial encounter S93.491A [place] [address] [address] Jan, [facility] [address] [facility] [id number] [address] [place] [address] Jan, Injury of left ankle, initia l encounter S99.912A ; Fall down stairs, initial encounter W10.8XXA and BMI 45.0-49.9, adult Z68.42 [place] [address] [address] Jan, COPD exacerbation J44.1 [place] [address] [address] Jan, Dysfunction of both eustachian tubes H69 .83 [place] [address] [address] Jan, Bronchitis J40 and Acute suppurative giovana tis media of left ear without spontaneous rupture of tympanic membrane, recurrence not specified H66.002 [place] [address] [address] Jan, [place] [address] [address] Jan, Bronchitis J40 and BMI 40.0-44.9, adult Z68.[address] [address] Jan, [place] [address] [address] Dec, Gastric pain R10.[address] [address] Dec, [place] [address] [address] Dec, History of illicit drug use Z87.898 ; Ne uropathy G62.9 ; COPD (chronic obstructive pulmonary disease) with chronic bronchitis J44.9 and Acute pain of right knee M25.561 [place] [address] [address] Nov, [address] [address] Nov, Onychomycosis B35.1 and Contusion of lef t foot, subsequent encounter S90.32XD [address] [address] Nov, COPD exacerbation J44.1 [place] [address] [address] Sep, [address] [address] Sep, Dysthymic disorder F34.1 ; Tobacco abuse Z72.0 ; Pain in right knee M25.561 ; Pain in left knee M25.562 ; Other chronic pain G89.29 and BMI 40.0- 44.9, adult Z68.41 [place] [address] [address] Aug, Major depressive disorder, recurrent epi sode, moderate F33.1 and Social phobia F40.[address] [address] 14 Aug, 2017 Dysthymic disorder F34.1 ; Non-pressure chronic ulcer of left thigh, unspecified ulcer stage L97.129 ; Tobacco abuse Z72.0 ; Mild chronic obstructive pulmonary disease J44.9 and Forgetfulness R68.[address] [address] 09 Aug, 2017 Onychomycosis B35.1 ; Fissure in skin of foot R23.4 and Foot callus L84 [facility] [address] [place], [place] [id number] [address] [place] [address] 26 Jul, 2017 Right medial knee pain M25.5 61 ; Upper respiratory tract infection, unspecified type J06.9 and BMI 40.0-44.9, adult Z68.41 [facility] [address] [place], [place] [id number] [address] [place] [address] 08 Jul, 2017 Nausea and vomiting, intract ability of vomiting not specified, unspecified vomiting type R11.2 ; Left ear pain H92.02 and Gastric pain R10.[address] [address] 17 Apr, 2017 Encounter for immunization Z23 [address] [address] Apr, Onychomycosis B35.1 ; Xerosis of skin L8 5.3 ; Neuropathy G62.9 and 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 [place] [address] [address] Jan, Onychomycosis B35.1 and Neuropathy G62.9 [facility] [address] [address] Dec, [facility] [address] [address] Dec, [place] [address] [address] Nov, [place] [address] [address] Aug, [place] [address] [address] Aug, [facility] [address] [address] Jul, [place] [address] [address] Jul, [place] [address] [address] Jul, Decubitus ulcer of left thigh, stage 2 L 89.892 [place] [address] [address] Jul, Decubitus ulcer of left thigh, stage 2 L 89.892 [facility] [address] [address] Jul, [place] [address] [address] Jul, Decubitus ulcer of left thigh, stage 2 L 89.892 [place] [address] [address] Jul, [facility] [address] [place] [id number] [place] [address] 13 Jul, 2016 Cellulitis of other specified site L03.8 18 ; Illicit drug use F19.90 and Decubitus ulcer of left thigh, stage 2 L89.892 [facility] [address] [place] [id number] [place] [address] 08 Jul, 2016 [facility] [address] [address] 06 Jul, 2016 Cellulitis of right breast N61.0 [facility] [address] [address] Jun, [place] [address] [address] Jun, [facility] [address] [address] Jun, Wheezing R06.2 and Arthralgia, unspecifi ed joint M25.50 [facility] [address] [place] [id number] [place] [address] May, [place] [address] [address] May, [facility] [address] [address] May, [place] [address] [address] May, Shortness of breath R06.02 [facility] [address] [place] [id number] [place] [address] May, Onychomycosis B35.1 and Fissure in skin of foot R23.4 [facility] [address] [place] [id number] [place] [address] Apr, [facility] [address] [facility] [id number] [address] [place] [address] Apr, Dizziness R42 [facility] [address] [address] 14 Apr, 2016 Shortness of breath R06.02 ; Essential h ypertension I10 ; Dizziness R42 and On home oxygen therapy Z99.81 [facility] [address] [address] 10 Apr, 2016 [facility] [address] [address] Apr, [facility] [address] [address] Apr, [facility] [address] [address] Apr, [facility] [address] [address] Apr, [facility] [address] [address] Apr, [facility] [address] [address] Apr, [facility] [address] [address] Mar, Mild chronic obstructive pulmonary disea se J44.9 [facility] [address] [address] Mar, [facility] [address] [address] Mar, Epigastric pain R10.13 ; Low back pain M 54.5 ; Other chronic pain G89.29 and Breast cancer screening Z12.39 [facility] [address] [address] Mar, [facility] [address] [address] Mar, [facility] [address] [address] Feb, [facility] [address] [address] 08 Feb, 2016 [facility] [address] [address] Feb, Fissure in skin of foot R23.4 and Onycho mycosis B35.1 [facility] [address] [address] Jan, Agoraphobia F40.00 [place] [address] [address] Dec, Agoraphobia F40.00 [place] [address] [address] Dec, Mild persistent asthma without complicat ion J45.30 ; Dysthymic disorder F34.1 and Upper respiratory tract infection, unspecified type J06.9 [place] [address] [address] Nov, Agoraphobia F40.00 [place] [address] [address] October, Agoraphobia F40.00 [place] [address] [address] Sep, Panic disorder without agoraphobia F41.0 ; Agoraphobia F40.00 and Dysthymic disorder F34.1 [place] [address] [address] Sep, Panic attacks F41.0 [place] [address] [address] Sep, [place] [address] [address] Sep, Panic disorder without agoraphobia F41.0 ; Varicose veins of both lower extremities I83.93 and Fatigue R53.83 [place] [address] [address] Sep, Fatigue R53.83 [place] [address] [address] Sep, [place] [address] [address] Aug, [place] [address] [address] Aug, [place] [address] [address] Aug, Type 2 diabetes mellitus with diabetic n europathic arthropathy E11.610 [place] [address] [address] Aug, Panic disorder without agoraphobia F41.0 ; Agoraphobia F40.00 and Dysthymic disorder F34.1 [place] [address] [address] Aug, Shortness of breath R06.02 ; Panic attac mt F41.0 ; COPD (chronic obstructive pulmonary disease) J44.9 ; Tobacco abuse Z72.0 ; Family history of diabetes mellitus Z83.3 and Weight gain R63.5 [place] [address] [address] Aug, [place] [address] [address] Jul, [place] [address] [address] Jun, Onychomycosis B35.1 ; Neuropathy G62.9 a nd Impaired circulation I99.9 [place] [address] [address] 09 Mar, 2015 Fissure in skin of foot R23.4 ; Onychomy cosis B35.1 and 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 [place] [address] [address] 18 Feb, 2015 Family history of coronary arteriosclero sis V17.3 [place] [address] [place] [id number] [place] [address] 15 Feb, 2015 Allergic rhinitis due to pollen 477.0 ; Unspecified breast screening V76.10 ; Anxiety 300.00 and Family history of coronary arteriosclerosis V17.3 [facility] [address] [place] [id number] [place] [address] Jan, [facility] [address] [place] [id number] [place] [address] Dec, [facility] [address] [place] [id number] [place] [address] Dec, Onychomycosis 110.1 and Skin fissures 70 9.8 [facility] [address] [place] [id number] [place] [address] Sep, [facility] [address] [place] [id number] [place] [address] Sep, [facility] [address] [place] [id number] [place] [address] Aug, [facility] [address] [place] [id number] [place] [address] Aug, [facility] [address] [place] [id number] [place] [address] Jul, [facility] [address] [place] [id number] [place] [address] Jul, [facility] [address] [place] [id number] [place] [address] Jun, [facility] [address] [place] [id number] [place] [address] Jun, [facility] [address] [place] [id number] [place] [address] Jun, [facility] [address] [place] [id number] [place] [address] Jun, [facility] [address] [place] [id number] [place] [address] Jun, [facility] [address] [id number] [place] [address] May, [facility] [address] [id number] [place] [address] May, [facility] [address] [id number] [place] [address] May, [facility] [address] [id number] [place] [address] May, [facility] [address] [id number] [place] [address] May, [facility] [address] [id number] [place] [address] May, [facility] [address] [id number] [place] [address] May, [facility] [address] [id number] [place] [address] May, [facility] [address] [id number] [place] [address] Apr, [facility] [address] [id number] [place] [address] Apr, [facility] [address] [id number] [place] [address] Apr, [facility] [address] [id number] [place] [address] Apr, [facility] [address] [id number] [place] [address] Apr, [facility] [place] [facility] [address] [id number] [place] [address] Apr, [facility] [place] [facility] [address] [id number] [place] [address] Apr, [facility] [place] [facility] [address] [id number] [place] [address] Apr, [facility] [place] [facility] [address] [id number] [place] [address] Apr, 2013 [facility] [place] [facility] [address] [facility] [id number] [place] [address] Apr, 2013 [facility] [place] [facility] [address] [facility] [id number] [place] [address] Mar, [facility] [place] [facility] [address] [id number] [place] [address] Mar, [facility] [place] [facility] [address] [facility] [id number] [place] [address] Mar, [facility] [place] [facility] [address] [facility] [id number] [place] [address] Mar, [facility] [place] [facility] [address] [id number] [place] [address] Mar, [facility] [place] [facility] [address] [id number] [place] [address] Mar, [facility] [place] [facility] [address] [id number] [place] [address] Mar, [facility] [place] [facility] [address] [facility] [id number] [place] [address] Mar, [facility] [place] [facility] [address] [id number] [place] [address] Mar, [facility] [place] [facility] [address] [id number] [place] [address] Mar, [facility] [place] [facility] [address] [id number] [place] [address] Mar, [facility] [place] [facility] [address] [facility] [id number] [place] [address] Mar, [facility] [place] [facility] [address] [facility] [id number] [place] [address] Mar, [facility] [place] [facility] [address] [facility] [id number] [place] [address] Mar, [facility] [place] [facility] [address] [id number] [place] [address] Mar, [facility] [place] [facility] [address] [id number] [place] [address] 20 Mar, 2013 [facility] [place] [facility] [address] [facility] [id number] [place] [address] 20 Mar, 2013 [facility] [place] [facility] [address] [id number] [place] [address] 16 Mar, 2013 [facility] [place] [facility] [address] [id number] [place] [address] 16 Mar, 2014 [facility] [place] [facility] [address] [id number] [place] [address] 15 Mar, 2013 [facility] [place] [facility] [address] [id number] [place] [address] 14 Mar, 2014 [facility] [place] [facility] [address] [id number] [place] [address] 14 Mar, 2013 [facility] [place] [facility] [address] [id number] [place] [address] 14 Mar, 2014 [facility] [place] [facility] [address] [id number] [place] [address] 14 Mar, 2013 [facility] [place] [facility] [address] [id number] [place] [address] 09 Mar, 2014 [facility] [place] [facility] [address] [id number] [place] [address] 09 Mar, 2013 [facility] [place] [facility] [address] [id number] [place] [address] 09 Mar, 2013 [facility] [place] [facility] [address] [id number] [place] [address] 09 Mar, 2013 [facility] [place] [facility] [address] [id number] [place] [address] 30 Sep, 2013 [facility] [place] [facility] [address] [id number] [place] [address] 30 Sep, 2013 [facility] [place] [facility] [address] [id number] [place] [address] 30 Sep, 2013 [facility] [place] [facility] [address] [id number] [place] [address] 30 Sep, 2013 [facility] [place] [facility] [address] [id number] [place] [address] Feb, 2013 [facility] [place] [facility] [address] [id number] [place] [address] Feb, 2013 [facility] [place] [facility] [address] [id number] [place] [address] Feb, 2013 [facility] [place] [facility] [address] [id number] [place] [address] Feb, 2013 [facility] [place] [facility] [address] [id number] [place] [address] Feb, 2013 [facility] [place] [facility] [address] [id number] [place] [address] Feb, 2013 [facility] [place] [facility] [address] [id number] [place] [address] Feb, 2013 [facility] [place] [facility] [address] [id number] [place] [address] Feb, 2013 [facility] [place] [facility] [address] [id number] [place] [address] Jan, [facility] [place] [facility] [address] [id number] [place] [address] Jan, [facility] [place] [facility] [address] [id number] [place] [address] Jan, [facility] [place] [facility] [address] [id number] [place] [address] Jan, [facility] [place] [facility] [address] [id number] [place] [address] Jan, [facility] [place] [facility] [address] [id number] [place] [address] Jan, [facility] [place] [facility] [address] [id number] [place] [address] Jan, [facility] [place] [facility] [address] [id number] [place] [address] Jan, [facility] [place] [facility] [address] [id number] [place] [address] Jan, [facility] [place] [facility] [address] [id number] [place] [address] Jan, [facility] [place] [facility] [address] [facility] [id number] [place] [address] Jan, [facility] [place] [facility] [address] [facility] [id number] [facility] [place] [address] Jan, [facility] [place] [facility] [address] [facility] [id number] [place] [address] Jan, [facility] [place] [facility] [address] [facility] [id number] [place] [address] Dec, [facility] [place] [facility] [address] [facility] [id number] [place] [address] Dec, [facility] [place] [facility] [address] [facility] [id number] [facility] [place] [address] Dec, [facility] [place] [facility] [address] [id number] [place] [address] Dec, [facility] [place] [facility] [address] [facility] [id number] [place] [address] Dec, [facility] [place] [facility] [address] [facility] [id number] [place] [address] Dec, [facility] [place] [facility] [address] [facility] [id number] [facility] [place] [address] Dec, [facility] [place] [facility] [address] [id number] [facility] [place] [address] Dec, [facility] [place] [facility] [address] [facility] [id number] [place] [address] Dec, [facility] [place] [facility] [address] [id number] [facility] [place] [address] Dec, [facility] [place] [facility] [address] [facility] [id number] [facility] [place] [address] Dec, [facility] [place] [facility] [address] [facility] [id number] [facility] [place] [address] Dec, [facility] [place] [facility] [address] [facility] [id number] [place] [address] Dec, 2013 [facility] [place] [facility] [address] [facility] [id number] [facility] [place] [place] [address] Dec, 2013 [facility] [place] [facility] [address] [facility] [id number] [place] [address] Dec, 2013 [facility] [place] [facility] [address] [id number] [place] [address] Dec, 2013 [facility] [place] [facility] [address] [facility] [id number] [place] [address] Dec, 2013 [facility] [place] [facility] [address] [facility] [id number] [place] [address] Dec, 2013 [facility] [place] [facility] [address] [id number] [place] [address] Nov, [facility] [place] [facility] [address] [id number] [place] [address] Nov, [facility] [place] [facility] [address] [id number] [place] [address] Nov, [facility] [place] [facility] [address] [id number] [place] [address] Nov, [facility] [place] [facility] [address] [id number] [place] [address] Nov, [facility] [place] [facility] [address] [id number] [place] [address] Nov, [facility] [place] [facility] [address] [id number] [place] [address] Nov, [facility] [place] [facility] [address] [facility] [id number] [place] [address] Nov, [facility] [place] [facility] [address] [id number] [place] [address] Nov, [facility] [place] [facility] [address] [id number] [place] [address] Nov, [facility] [place] [facility] [address] [id number] [place] [address] Nov, [facility] [place] [facility] [address] [id number] [place] [address] Nov, [facility] [place] [facility] [address] [id number] [place] [address] Nov, [facility] [place] [facility] [address] [id number] [place] [address] Nov, [facility] [place] [facility] [address] [id number] [place] [address] Nov, [facility] [place] [facility] [address] [id number] [place] [address] Nov, [facility] [place] [facility] [address] [id number] [place] [address] Nov, [facility] [place] [facility] [address] [id number] [place] [address] Nov, [facility] [place] [facility] [address] [id number] [place] [address] Nov, [facility] [place] [facility] [address] [id number] [place] [address] Nov, [facility] [place] [facility] [address] [id number] [place] [address] October, [facility] [place] [facility] [address] [id number] [place] [address] October, [facility] [place] [facility] [address] [id number] [place] [address] October, [facility] [place] [facility] [address] [id number] [place] [address] October, [facility] [place] [facility] [address] [id number] [place] [address] Sep, [facility] [place] [facility] [address] [id number] [place] [address] Sep, [facility] [place] [facility] [address] [id number] [place] [address] Sep, [facility] [place] [facility] [address] [id number] [place] [address] 17 Sep, 2013 [facility] [place] [facility] [address] [facility] [id number] [facility] [place] [address] Sep, [facility] [place] [facility] [address] [facility] [id number] [place] [address] Sep, [facility] [place] [facility] [address] [facility] [id number] [facility] [place] [address] Sep, [facility] [place] [facility] [address] [id number] [place] [address] Sep, [facility] [place] [facility] [address] [facility] [id number] [place] [address] Sep, [facility] [place] [facility] [address] [id number] [facility] [place] [address] Aug, [facility] [place] [facility] [address] [id number] [place] [address] Aug, [facility] [place] [facility] [address] [id number] [facility] [place] [address] Aug, [facility] [place] [facility] [address] [facility] [id number] [facility] [place] [address] Aug, [facility] [place] [facility] [address] [id number] [facility] [place] [address] Aug, [facility] [place] [facility] [address] [id number] [place] [address] Aug, [facility] [place] [facility] [address] [id number] [place] [address] Aug, [facility] [place] [facility] [address] [facility] [id number] [place] [address] Aug, [facility] [place] [facility] [address] [facility] [id number] [place] [address] Jul, [facility] [place] [facility] [address] [facility] [id number] [place] [address] Jul, [facility] [place] [facility] [address] [id number] [facility] [place] [address] Jun, [facility] [place] [facility] [address] [id number] [place] [address] Jun, [facility] [place] [facility] [address] [id number] [place] [address] Jun, [facility] [place] [facility] [address] [id number] [place] [address] Jun, [facility] [place] [facility] [address] [id number] [place] [address] Jun, [facility] [place] [facility] [address] [id number] [place] [address] Jun, [facility] [place] [facility] [address] [id number] [place] [address] Jun, [facility] [place] [facility] [address] [id number] [place] [address] Jun, [facility] [place] [facility] [address] [id number] [place] [address] Jun, [facility] [place] [facility] [address] [id number] [place] [address] Jun, [facility] [place] [facility] [address] [id number] [place] [address] Jun, [facility] [place] [facility] [address] [id number] [place] [address] Jun, [facility] [place] [facility] [address] [id number] [place] [address] May, [facility] [place] [facility] [address] [id number] [place] [address] May, [facility] [place] [facility] [address] [id number] [place] [address] May, [facility] [place] [facility] [address] [id number] [place] [address] May, [facility] [place] [facility] [address] [id number] [place] [address] May, [facility] [place] [facility] [address] [id number] [place] [address] May, [facility] [place] [facility] [address] [id number] [place] [address] May, [facility] [place] [facility] [address] [id number] [place] [address] May, [facility] [place] [facility] [address] [id number] [place] [address] May, [facility] [place] [facility] [address] [id number] [place] [address] May, [facility] [place] [facility] [address] [id number] [place] [address] May, [facility] [place] [facility] [address] [id number] [place] [address] May, [facility] [place] [facility] [address] [id number] [place] [address] May, [facility] [place] [facility] [address] [id number] [place] [address] Apr, [facility] [place] [facility] [address] [id number] [place] [address] Apr, [facility] [place] [facility] [address] [id number] [place] [address] Mar, [facility] [place] [facility] [address] [id number] [place] [address] Mar, [facility] [place] [facility] [address] [id number] [place] [address] 24 Feb, 2013 [facility] [place] [facility] [address] [id number] [place] [address] 23 Feb, 2013 [facility] [place] [facility] [address] [id number] [place] [address] 05 Feb, 2013 [facility] [place] [facility] [address] [id number] [place] [address] 04 Feb, 2013 [facility] [place] [facility] [address] [id number] [place] [address] 28 Jan, 2013 [facility] [place] [facility] [address] [id number] [place] [address] Jan, [facility] [place] [facility] [address] [facility] [id number] [place] [address] Jan, [facility] [place] [facility] [address] [id number] [place] [address] Jan, [facility] [place] [facility] [address] [id number] [place] [address] Jan, [facility] [place] [facility] [address] [id number] [place] [address] Jan, [facility] [place] [facility] [address] [facility] [id number] [place] [address] Dec, [facility] [place] [facility] [address] [id number] [place] [address] Dec, [facility] [place] [facility] [address] [id number] [place] [address] Dec, [facility] [place] [facility] [address] [id number] [place] [address] Dec, [facility] [place] [facility] [address] [id number] [place] [address] Nov, [facility] [place] [facility] [address] [id number] [place] [address] October, [facility] [place] [facility] [address] [id number] [place] [address] October, [facility] [place] [facility] [address] [id number] [place] [address] October, [facility] [place] [facility] [address] [id number] [place] [address] Sep, [facility] [place] [facility] [address] [id number] [place] [address] Sep, [facility] [place] [facility] [address] [id number] [place] [address] Jun, [facility] [place] [facility] [address] [id number] [place] [address] Jun, [facility] [place] [facility] [address] [id number] [place] [address] Jun, [facility] [place] [facility] [address] [id number] [place] [address] Apr, [facility] [place] [facility] [address] [id number] [place] [address] Apr, [facility] [place] [facility] [address] [id number] [place] [address] Apr, [facility] [place] [facility] [address] [id number] [place] [address] Apr, [facility] [place] [facility] [address] [id number] [place] [address] Mar, [facility] [place] [facility] [address] [id number] [place] [address] Mar, [facility] [place] [facility] [id number] [place] [address] Mar, [facility] [place] [facility] [address] [id number] [place] [address] Mar, [facility] [place] [facility] [address] [id number] [place] [address] Feb, [facility] [place] [facility] [address] [id number] [place] [address] Feb, [facility] [place] [facility] [address] [id number] [place] [address] Feb, [facility] [place] [facility] [address] [id number] [place] [address] Jan, [facility] [place] [facility] [address] [id number] [place] [address] Jan, [facility] [place] [facility] [address] [id number] [place] [address] Jan, [facility] [place] [facility] [address] [id number] [place] [address] Jan, [facility] [place] [facility] [address] [id number] [place] [address] Dec, [facility] [address] [id number] [place] [address] Dec, [facility] [address] [id number] [place] [address] Nov, [facility] [address] [id number] [place] [address] Nov, [facility] [address] [id number] [place] [address] October, [facility] [address] [id number] [place] [address] October, [facility] [address] [id number] [place] [address] October, [facility] [address] [id number] [place] [address] Sep, [facility] [address] [id number] [place] [address] Sep, [facility] [address] [id number] [place] [address] Sep, [facility] [address] [id number] [place] [address] Aug, [facility] [address] [id number] [place] [address] Aug, [facility] [address] [id number] [place] [address] Aug, [facility] [address] [id number] [place] [address] 15 Aug, 2011 [facility] [address] [id number] [place] [address] Aug, [facility] [address] [id number] [place] [address] Jul, [facility] [address] [id number] [place] [address] 16 Jul, 2011 [facility] [address] [id number] [place] [address] Jul, [facility] [address] [id number] [place] [address] Jul, [facility] [address] [id number] [place] [address] Jul, [facility] [id number] [place] [address] Jul, [facility] [id number] [place] [address] Jul, [facility] [address] [id number] [place] [address] Jul, [facility] [id number] [place] [address] Jun, [facility] [id number] [place] [address] Jun, [facility] [id number] [place] [address] May, [facility] [id number] [place] [address] May, [facility] [id number] [place] [address] May, [facility] [id number] [place] [address] May, [facility] [id number] [place] [address] Apr, [facility] [address] [id number] [place] [address] Apr, [facility] [id number] [place] [address] Apr, [facility] [id number] [place] [address] Mar, [facility] [id number] [place] [address] Mar, [facility] [address] [id number] [place] [address] 18 Mar, 2011 [facility] [address] [id number] [place] [address] Mar, [facility] [address] [id number] [place] [address] Dec, [facility] [address] [id number] [place] [address] October, [facility] [address] [id number] [place] [address] May, [facility] [address] [id number] [place] [address] 13 May, 2010 [facility] [address] [id number] [place] [address] 13 May, 2010 [facility] [address] [id number] [place] [address] May, [facility] [address] [id number] [place] [address] Mar, [facility] [address] [id number] [place] [address] Mar, [facility] [address] [id number] [place] [address] May, [facility] [address] [id number] [place] [address] 30 May, 2009 [facility] [address] [id number] [place] [address] 08 May, 2009 [facility] [address] [id number] [place] [address] 08 May, 2009 [facility] [address] [id number] [place] [address] Apr, [facility] [address] [id number] [place] [address] Apr, [facility] [address] [id number] [place] [address] October, IMMUNIZATIONS No Known Immunizations SOCIAL HISTORY [...]
--- OUTSIDE RECORDS SUMMARY | 2020-01-13 11:54 | XMS REPORT ---
Author Author Monique Cobos Doctor Organization [facility] Address Unknown Phone Unavailable Care Team Providers Care Geosciences Professor Name Role Phone Migration, Doctor Unavailable Unavailable PROBLEMS Type Condition ICD9-CM Code KVS51-XC Code Onset Dates Condition S tatus SNOMED Code Problem MRSA (methicillin resistant staph aureus) culture positive Z22.322 Active 436987234 Problem History of illicit drug use Z87.898 Ac tive 448592710 Problem Snoring R06.83 Active 55221634 Problem Dysthymic disorder F34.1 Active 7 1247602 Problem Impaired circulation I99.9 Active 80226987 Problem Arthritis M19.90 Active 8111366 Problem 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 Active 793607532 Problem Mild persistent asthma without complication J45.30 Active 354550886 Problem Varicose veins of both lower extremities I83.93 Active 09041061 Problem On home oxygen therapy Z99.81 Active 902570260975 Problem Mild chronic obstructive pulmonary disease J44.9 Active 449880710 Problem Neuropathy G62.9 Active 365446702 Problem Essential hypertension I10 Active 39659847 Problem Social phobia F40.10 Active 287996 02 Problem Major depressive disorder, recurrent episode, moderate F33.1 Active 065589871 Problem Mood disorder F39 Active 547246 05 Problem Psychotic disorder F29 Active 6 9242504 Problem Hypertension, benign I10 Active 45803985 Problem Body mass index (BMI) 40.0-44.9, adult Z68.41 Active 898269615 Problem Panic disorder without agoraphobia F41.0 Active 06169884 Problem Unspecified psychosis not du e to a substance or known physiological condition F29 Active 529812135 Problem Agoraphobia F40.00 Active 00180448 Problem Fatigue R53.83 Active 72398536 Problem Onychomycosis B35.1 Active 004204 008 Problem Major depressive disorder in full remission F32.5 Active 38041767 Problem Slow transit constipation K59.01 Acti ve 47063481 Problem Chronic obstructive pulmonary disease, unspecified COPD ty pe J44.9 Active 95136771 ALLERGIES No Information ENCOUNTERS Encounter Location Date Diagnosis [place] [address] [address] Sep, [place] [address] [address] Sep, [place] [address] [address] Aug, [place] [address] [address] Aug, [place] [address] [address] Jul, [place] [address] [address] Jul, Morbid obesity E66.01 [place] [address] [address] Jul, Unspecified psychosis not due to a subst ance or known physiological condition F29 ; Chronic obstructive pulmonary disease, unspecified COPD type J44.9 and Body mass index (BMI) 40.0-44.9, adult Z68.41 [place] [address] [address] Jun, [place] [address] [address] Jun, Morbid obesity E66.01 [place] [address] [address] May, Morbid obesity E66.01 [place] [address] [address] May, Encounter for immunization Z23 [place] [address] [address] May, Major depressive disorder, recurrent epi sode, moderate F33.1 ; Panic disorder without agoraphobia F41.0 and Morbid obesity E66.01 [place] [address] [address] May, Major depressive disorder in full remiss ion F32.5 and Panic disorder without agoraphobia F41.0 [place] [address] [address] Apr, Morbid obesity E66.01 [place] [address] [address] Apr, Slow transit constipation K59.01 and Lois lulitis of left lower extremity L03.116 [place] [address] [address] Apr, Morbid obesity E66.01 [place] [address] [address] Apr, [address] [address] Apr, Major depressive disorder, recurrent epi sode, moderate F33.1 and Panic disorder without agoraphobia F41.0 [place] [address] [address] Mar, Viral upper respiratory tract infection J06.[address] [address] Mar, Bronchitis J40 and Encounter for immuniz ation Z23 [address] [address] Mar, Morbid obesity E66.01 [place] [address] [address] Feb, Major depressive disorder, recurrent epi sode, moderate F33.1 and Panic disorder without agoraphobia F41.0 [place] [address] [address] Feb, Morbid obesity E66.[address] [address] 06 Feb, 2019 Onychomycosis B35.1 ; Type 2 diabetes me llitus with diabetic neuropathic arthropathy E11.610 and Xerosis of skin L85.3 [place] [address] [address] Feb, Major depressive disorder, recurrent epi sode, moderate F33.1 ; Panic disorder without agoraphobia F41.0 and Morbid obesity E66.01 [place] [address] [place] [address] Jan, Major depressive disorder in full remiss ion F32.5 and Panic disorder without agoraphobia F41.[address] [address] Jan, Pneumonia of both lower lobes due to inf ectious organism J18.1 and Morbid obesity E66.[address] [address] Jan, [address] [address] Jan, Major depressive disorder in full remiss ion F32.5 and Panic disorder without agoraphobia F41.0 [place] [address] [address] Jan, [address] [address] Jan, Major depressive disorder, recurrent epi sode, moderate F33.1 ; Panic disorder without agoraphobia F41.0 and Morbid obesity E66.01 [place] [address] [address] Dec, Bilious vomiting with nausea R11.14 ; Co ughing R05 and Choking, subsequent encounter T17.308D [address] [address] Dec, Morbid obesity E66.[address] [address] Dec, Major depressive disorder, recurrent epi sode, moderate F33.1 and Panic disorder without agoraphobia F41.0 [place] [address] [address] Dec, [place] [address] [address] Dec, Major depressive disorder, recurrent epi sode, moderate F33.1 [place] [address] [address] Nov, Major depressive disorder, recurrent epi sode, moderate F33.1 ; Panic disorder without agoraphobia F41.0 and Morbid obesity E66.01 [place] [address] [address] Nov, Morbid obesity E66.01 [place] [address] [address] Nov, Major depressive disorder, recurrent epi sode, moderate F33.1 and Panic disorder without agoraphobia F41.0 [facility] [address] [address] Nov, Allergic reaction, initial e ncounter T78.40XA and Morbid obesity E66.01 [place] [address] [address] Nov, [place] [address] [address] 13 Nov, 2018 Morbid obesity E66.01 ; Swallowing probl em R13.10 and Hypertension, benign I10 [facility] [address] [address] 07 Nov, 2018 Morbid obesity E66.01 ; COPD exacerbation J44.1 and Non- recurrent acute suppurative otitis media of left ear without spontaneous rupture of tympanic membrane H66.002 [place] [address] [address] 07 Nov, 2018 Onychomycosis B35.1 ; Neuropathy G62.9 a nd Fissure in skin of foot R23.4 [facility] [address] [place] [id number] [place] [address] October, Major depressive disorder, recurrent epi sode, moderate F33.1 ; Panic disorder without agoraphobia F41.0 and Morbid obesity E66.01 [facility] [address] [facility] [id number] [address] [place] [address] October, Viral upper respiratory trac t infection J06.9 [facility] [address] [address] October, [place] [address] [address] October, Major depressive disorder, recurrent epi sode, moderate F33.1 and Panic disorder without agoraphobia F41.0 [facility] [address] [address] October, [facility] [address] [address] October, [facility] [address] [address] October, [facility] [address] [address] October, [facility] [address] [address] October, [facility] [address] [address] October, [facility] [address] [address] October, Major depressive disorder, recurrent epi sode, moderate F33.1 and Panic disorder without agoraphobia F41.0 [facility] [address] [place] [id number] [place] [address] Sep, Morbid obesity E66.01 and Lumbar neuriti s M54.16 [facility] [address] [address] Sep, Panic disorder without agoraphobia F41.0 and Major depressive disorder, recurrent episode, moderate F33.1 [facility] [address] [facility] [id number] [address] [place] [address] Sep, Gastroenteritis K52.9 ; Low back pain M54.5 ; Other chronic pain G89.29 and Morbid obesity E66.01 [place] [address] [address] Sep, Major depressive disorder, recurrent epi sode, moderate F33.1 ; Panic disorder without agoraphobia F41.0 and Social phobia F40.10 [place] [address] [address] Sep, Panic disorder without agoraphobia F41.0 [place] [address] [address] Sep, Panic disorder without agoraphobia F41.0 [place] [address] [address] Aug, Panic disorder without agoraphobia F41.0 ; Major depressive disorder, recurrent episode, moderate F33.1 ; Social phobia F40.10 ; Psychotic disorder F29 ; Tardive dyskinesia G24.01 and Morbid obesity E66.01 [place] [address] [address] Aug, Dysthymic disorder F34.1 and Psychotic d isorder F29 [place] [address] [address] Aug, Encounter for Medicare annual wellness e xam Z00.00 ; Morbid obesity E66.01 and Type 2 diabetes mellitus with diabetic neuropathic arthropathy E11.610 [place] [address] [address] Aug, Dysthymic disorder F34.1 and Psychotic d isorder F29 [place] [address] [address] Aug, Neuropathy G62.9 ; Onychomycosis B35.1 a nd Xerosis of skin L85.3 [place] [address] [address] 13 Jul, 2018 [place] [address] [address] Jul, Mood disorder F39 ; Wheezing R06.2 ; Diego laura, initial encounter T17.308A and Coughing R05 [place] [address] [address] Jul, Low back pain M54.5 [facility] [address] [facility] [id number] [address] [place] [address] Jun, Flu-like symptoms R68.89 ; B NE 45.0-49.9, adult Z68.42 ; COPD exacerbation J44.1 and Acute bronchitis J20.9 [place] [address] [address] Jun, [place] [address] [address] May, [place] [address] [address] May, Onychomycosis B35.1 and Type 2 diabetes mellitus with diabetic neuropathic arthropathy E11.610 [place] [address] [address] May, Low back pain M54.5 and Edema leg R60.0 [place] [address] [address] May, BMI 45.0-49.9, adult Z68.42 ; Well woman exam with routine gynecological exam Z01.419 and Breast cancer screening Z12.31 [place] [address] [address] Apr, Arthritis M19.90 [place] [address] [address] 16 Apr, 2018 Arthritis M19.90 and Otalgia of both ear s H92.03 [place] [address] [address] 28 Feb, 2018 [place] [address] [address] Feb, Low back pain M54.5 ; Other chronic pain G89.29 ; Exertional asthma J45.990 and Encounter for immunization Z23 [place] [address] [address] 21 Feb, 2018 Skin fissures R23.4 ; Neuropathy G62.9 a nd Onychomycosis B35.1 [place] [address] [address] 05 Feb, 2018 Dysthymic disorder F34.1 [place] [address] [address] 04 Feb, 2018 [place] [address] [address] Jan, [place] [address] [address] Jan, Abrasion of right elbow, initial encount er S50.311A ; Abrasion, right knee, initial encounter S80.211A and Sprain of other ligament of right ankle, initial encounter S93.491A [place] [address] [address] Jan, [facility] [address] [facility] [id number] [address] [place] [address] Jan, Injury of left ankle, initia l encounter S99.912A ; Fall down stairs, initial encounter W10.8XXA and BMI 45.0-49.9, adult Z68.42 [place] [address] [address] Jan, COPD exacerbation J44.1 [place] [address] [address] Jan, Dysfunction of both eustachian tubes H69 .83 [place] [address] [address] Jan, Bronchitis J40 and Acute suppurative giovana tis media of left ear without spontaneous rupture of tympanic membrane, recurrence not specified H66.002 [place] [address] [address] Jan, [address] [address] Jan, Bronchitis J40 and BMI 40.0-44.9, adult Z68.[address] [address] Jan, [address] [address] Dec, Gastric pain R10.[address] [address] Dec, [address] [address] Dec, History of illicit drug use Z87.898 ; Ne uropathy G62.9 ; COPD (chronic obstructive pulmonary disease) with chronic bronchitis J44.9 and Acute pain of right knee M25.[address] [address] Nov, [address] [address] Nov, Onychomycosis B35.1 and Contusion of lef t foot, subsequent encounter S90.32XD [address] [address] Nov, COPD exacerbation J44.[address] [address] Sep, [address] [address] Sep, Dysthymic disorder F34.1 ; Tobacco abuse Z72.0 ; Pain in right knee M25.561 ; Pain in left knee M25.562 ; Other chronic pain G89.29 and BMI 40.0- 44.9, adult Z68.[address] [address] Aug, Major depressive disorder, recurrent epi sode, moderate F33.1 and Social phobia F40.[address] [address] Aug, Dysthymic disorder F34.1 ; Non-pressure chronic ulcer of left thigh, unspecified ulcer stage L97.129 ; Tobacco abuse Z72.0 ; Mild chronic obstructive pulmonary disease J44.9 and Forgetfulness R68.[address] [address] Aug, Onychomycosis B35.1 ; Fissure in skin of foot R23.4 and Foot callus L84 [facility] [address] [address] Jul, Right medial knee pain M25.5 61 ; Upper respiratory tract infection, unspecified type J06.9 and BMI 40.0-44.9, adult Z68.41 [facility] [address] [address] Jul, Nausea and vomiting, intract ability of vomiting not specified, unspecified vomiting type R11.2 ; Left ear pain H92.02 and Gastric pain R10.[address] [address] Apr, Encounter for immunization Z23 [address] [address] Apr, Onychomycosis B35.1 ; Xerosis of skin L8 5.3 ; Neuropathy G62.9 and 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.610 [facility] [address] [place] [id number] [place] [address] Jan, Onychomycosis B35.1 and Neuropathy G62.9 [facility] [address] [place] [id number] [place] [address] Dec, [facility] [address] [address] Dec, [facility] [address] [address] Nov, [facility] [address] [address] Aug, [facility] [address] [address] Aug, [facility] [address] [address] Jul, [facility] [address] [place] [id number] [place] [address] Jul, [facility] [address] [address] Jul, Decubitus ulcer of left thigh, stage 2 L 89.892 [facility] [address] [address] Jul, Decubitus ulcer of left thigh, stage 2 L 89.892 [facility] [address] [place] [id number] [place] [address] 17 Jul, 2016 [facility] [address] [address] Jul, Decubitus ulcer of left thigh, stage 2 L 89.892 [facility] [address] [address] 14 Jul, 2016 [facility] [address] [address] Jul, Cellulitis of other specified site L03.8 18 ; Illicit drug use F19.90 and Decubitus ulcer of left thigh, stage 2 L89.892 [place] [address] [address] 08 Jul, 2016 [facility] [address] [address] 06 Jul, 2016 Cellulitis of right breast N61.0 [place] [address] [address] Jun, [place] [address] [address] Jun, [place] [address] [address] Jun, Wheezing R06.2 and Arthralgia, unspecifi ed joint M25.50 [place] [address] [address] May, [place] [address] [address] May, [place] [address] [address] May, [place] [address] [address] May, Shortness of breath R06.02 [place] [address] [address] May, Onychomycosis B35.1 and Fissure in skin of foot R23.4 [place] [address] [address] Apr, [facility] [address] [facility] [id number] [address] [place] [address] Apr, Dizziness R42 [place] [address] [address] 14 Apr, 2016 Shortness of breath R06.02 ; Essential h ypertension I10 ; Dizziness R42 and On home oxygen therapy Z99.81 [facility] [address] [address] Apr, [facility] [address] [address] Apr, [facility] [address] [address] Apr, [facility] [address] [address] Apr, [facility] [address] [address] Apr, [facility] [address] [address] Apr, [facility] [address] [address] Apr, [facility] [address] [address] Mar, Mild chronic obstructive pulmonary disea se J44.9 [facility] [address] [address] Mar, [facility] [address] [address] Mar, Epigastric pain R10.13 ; Low back pain M 54.5 ; Other chronic pain G89.29 and Breast cancer screening Z12.39 [facility] [address] [address] Mar, [facility] [address] [address] Mar, [facility] [address] [address] Feb, [facility] [address] [address] Feb, [facility] [address] [address] Feb, Fissure in skin of foot R23.4 and Onycho mycosis B35.1 [place] [address] [address] Jan, Agoraphobia F40.00 [place] [address] [address] Dec, Agoraphobia F40.00 [place] [address] [address] Dec, Mild persistent asthma without complicat ion J45.30 ; Dysthymic disorder F34.1 and Upper respiratory tract infection, unspecified type J06.9 [place] [address] [address] Nov, Agoraphobia F40.00 [place] [address] [address] October, Agoraphobia F40.00 [place] [address] [address] Sep, Panic disorder without agoraphobia F41.0 ; Agoraphobia F40.00 and Dysthymic disorder F34.1 [place] [address] [address] Sep, Panic attacks F41.0 [place] [address] [address] Sep, [place] [address] [address] Sep, Panic disorder without agoraphobia F41.0 ; Varicose veins of both lower extremities I83.93 and Fatigue R53.83 [place] [address] [address] 14 Sep, 2015 Fatigue R53.83 [place] [address] [address] Sep, [place] [address] [address] Aug, [place] [address] [address] Aug, [place] [address] [address] Aug, Type 2 diabetes mellitus with diabetic n europathic arthropathy E11.610 [place] [address] [address] Aug, Panic disorder without agoraphobia F41.0 ; Agoraphobia F40.00 and Dysthymic disorder F34.1 [place] [address] [address] Aug, Shortness of breath R06.02 ; Panic attac ks F41.0 ; COPD (chronic obstructive pulmonary disease) J44.9 ; Tobacco abuse Z72.0 ; Family history of diabetes mellitus Z83.3 and Weight gain R63.5 [place] [address] [address] Aug, [place] [address] [address] Jul, [place] [address] [address] Jun, Onychomycosis B35.1 ; Neuropathy G62.9 a nd Impaired circulation I99.9 [place] [address] [address] 09 Mar, 2015 Fissure in skin of foot R23.4 ; Onychomy cosis B35.1 and 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 [place] [address] [address] 18 Feb, 2015 Family history of coronary arteriosclero sis V17.3 [place] [address] [address] 15 Feb, 2015 Allergic rhinitis due to pollen 477.0 ; Unspecified breast screening V76.10 ; Anxiety 300.00 and Family history of coronary arteriosclerosis V17.3 [facility] [id number] [place] [address] Jan, [facility] [id number] [place] [address] Dec, [facility] [address] [address] Dec, Onychomycosis 110.1 and Skin fissures 70 9.8 [facility] [id number] [place] [address] Sep, [facility] [address] [address] Sep, [facility] [id number] [place] [address] Aug, [facility] [id number] [place] [address] Aug, [facility] [id number] [place] [address] Jul, [facility] [address] [address] Jul, [facility] [id number] [place] [address] Jun, [facility] [id number] [place] [address] Jun, [facility] [id number] [place] [address] Jun, [facility] [address] [address] Jun, [facility] [id number] [place] [address] Jun, [facility] [address] [address] May, [facility] [address] [id number] [place] [address] May, [facility] [address] [id number] [place] [address] May, [facility] [address] [id number] [place] [address] May, [facility] [address] [id number] [place] [address] May, [facility] [address] [id number] [place] [address] May, [facility] [address] [id number] [place] [address] May, [facility] [address] [id number] [place] [address] May, [facility] [address] [id number] [place] [address] Apr, [facility] [address] [id number] [place] [address] Apr, [facility] [address] [id number] [place] [address] Apr, [facility] [address] [id number] [place] [address] Apr, [facility] [address] [id number] [place] [address] Apr, [facility] [id number] [place] [address] Apr, [facility] [id number] [place] [address] Apr, [facility] [id number] [place] [address] Apr, [facility] [id number] [place] [address] Apr, [facility] [id number] [place] [address] Apr, [facility] [address] [facility] [id number] [place] [address] Mar, [facility] [address] [facility] [id number] [place] [address] Mar, [facility] [id number] [place] [address] Mar, [facility] [address] [facility] [id number] [place] [address] Mar, [facility] [address] [facility] [id number] [place] [address] Mar, [facility] [id number] [place] [address] Mar, [facility] [id number] [place] [address] Mar, [facility] [id number] [place] [address] Mar, [facility] [address] [facility] [id number] [place] [address] Mar, [facility] [id number] [place] [address] Mar, [facility] [address] [id number] [place] [address] Mar, [facility] [place] [facility] [id number] [place] [address] Mar, [facility] [place] [facility] [address] [facility] [id number] [place] [address] Mar, [facility] [place] [facility] [address] [facility] [id number] [place] [address] Mar, [facility] [place] [facility] [address] [facility] [id number] [place] [address] Mar, [facility] [place] [facility] [id number] [place] [address] Mar, [facility] [place] [facility] [id number] [place] [address] 20 Mar, 2013 [facility] [place] [facility] [address] [facility] [id number] [place] [address] 16 Mar, 2013 [facility] [place] [facility] [id number] [place] [address] 16 Mar, 2013 [facility] [place] [facility] [id number] [place] [address] 15 Mar, 2014 [facility] [place] [facility] [id number] [place] [address] 14 Mar, 2014 [facility] [place] [facility] [id number] [place] [address] 14 Mar, 2014 [facility] [place] [facility] [id number] [place] [address] 14 Mar, 2014 [facility] [place] [facility] [id number] [place] [address] 14 Mar, 2014 [facility] [place] [facility] [id number] [place] [address] 09 Mar, 2013 [facility] [place] [facility] [id number] [place] [address] 09 Mar, 2013 [facility] [place] [facility] [id number] [place] [address] 09 Mar, 2013 [facility] [place] [facility] [id number] [place] [address] 09 Mar, 2013 [facility] [place] [facility] [id number] [place] [address] 30 Feb, 2013 [facility] [place] [facility] [id number] [place] [address] 30 Sep, 2013 [facility] [place] [facility] [id number] [place] [address] 30 Sep, 2013 [facility] [place] [facility] [id number] [place] [address] 30 Sep, 2013 [facility] [place] [facility] [id number] [place] [address] 26 Feb, 2013 [facility] [place] [facility] [address] [id number] [place] [address] Feb, 2013 [facility] [place] [facility] [address] [id number] [place] [address] Feb, 2013 [facility] [place] [facility] [id number] [place] [address] Feb, 2013 [facility] [place] [facility] [address] [id number] [place] [address] Feb, 2013 [facility] [place] [facility] [address] [id number] [place] [address] Feb, 2013 [facility] [place] [facility] [address] [id number] [place] [address] Feb, 2013 [facility] [place] [facility] [id number] [place] [address] Feb, 2013 [facility] [place] [facility] [id number] [place] [address] Jan, [facility] [place] [facility] [id number] [place] [address] Jan, [facility] [place] [facility] [address] [id number] [place] [address] Jan, [facility] [place] [facility] [id number] [place] [address] Jan, [facility] [place] [facility] [id number] [place] [address] Jan, [facility] [place] [facility] [address] [id number] [place] [address] Jan, [facility] [place] [facility] [address] [id number] [place] [address] Jan, [facility] [place] [facility] [address] [id number] [place] [address] Jan, [facility] [place] [facility] [id number] [place] [address] Jan, [facility] [place] [facility] [id number] [place] [address] Jan, [facility] [place] [facility] [address] [id number] [place] [address] Jan, [facility] [place] [facility] [address] [facility] [id number] [place] [address] Jan, [facility] [place] [facility] [address] [facility] [id number] [place] [address] Jan, [facility] [place] [facility] [address] [facility] [id number] [place] [address] Dec, [facility] [place] [facility] [address] [facility] [id number] [place] [address] Dec, [facility] [place] [facility] [address] [facility] [id number] [place] [address] Dec, [facility] [place] [facility] [address] [facility] [id number] [place] [address] Dec, [facility] [place] [facility] [id number] [place] [address] Dec, [facility] [place] [facility] [address] [facility] [id number] [place] [address] Dec, [facility] [place] [facility] [address] [facility] [id number] [place] [address] Dec, [facility] [place] [facility] [address] [facility] [id number] [place] [address] Dec, [facility] [place] [facility] [id number] [place] [address] Dec, [facility] [place] [facility] [address] [facility] [id number] [place] [address] Dec, [facility] [place] [facility] [address] [id number] [place] [address] Dec, [facility] [place] [facility] [address] [facility] [id number] [place] [address] Dec, [facility] [place] [facility] [address] [facility] [id number] [place] [address] Dec, 2013 [facility] [place] [facility] [address] [facility] [id number] [place] [address] Dec, 2013 [facility] [place] [facility] [address] [facility] [id number] [place] [address] Dec, 2013 [facility] [place] [facility] [address] [facility] [id number] [place] [address] Dec, 2013 [facility] [place] [facility] [id number] [place] [address] Dec, 2013 [facility] [place] [facility] [address] [facility] [id number] [place] [address] Dec, 2013 [facility] [place] [facility] [address] [facility] [id number] [place] [address] Nov, [facility] [place] [facility] [id number] [place] [address] Nov, [facility] [place] [facility] [id number] [place] [address] Nov, [facility] [place] [facility] [id number] [place] [address] Nov, [facility] [place] [facility] [id number] [place] [address] Nov, [facility] [place] [facility] [id number] [place] [address] Nov, [facility] [place] [facility] [id number] [place] [address] Nov, [facility] [place] [facility] [id number] [place] [address] Nov, [facility] [place] [facility] [address] [facility] [id number] [place] [address] Nov, [facility] [place] [facility] [id number] [place] [address] Nov, [facility] [place] [facility] [id number] [place] [address] Nov, [facility] [place] [facility] [id number] [place] [address] Nov, [facility] [place] [facility] [address] [id number] [place] [address] Nov, [facility] [place] [facility] [id number] [place] [address] Nov, [facility] [place] [facility] [id number] [place] [address] Nov, [facility] [place] [facility] [id number] [place] [address] Nov, [facility] [place] [facility] [id number] [place] [address] Nov, [facility] [place] [facility] [id number] [place] [address] Nov, [facility] [place] [facility] [id number] [place] [address] Nov, [facility] [place] [facility] [id number] [place] [address] Nov, [facility] [place] [facility] [id number] [place] [address] October, [facility] [place] [facility] [id number] [place] [address] October, [facility] [place] [facility] [id number] [place] [address] October, [facility] [place] [facility] [id number] [place] [address] October, [facility] [place] [facility] [id number] [place] [address] Sep, [facility] [place] [facility] [id number] [place] [address] Sep, [facility] [place] [facility] [id number] [place] [address] Sep, [facility] [place] [facility] [id number] [place] [address] Sep, [facility] [place] [facility] [id number] [place] [address] Sep, [facility] [place] [facility] [address] [facility] [id number] [place] [address] Sep, [facility] [place] [facility] [address] [facility] [id number] [place] [address] Sep, [facility] [place] [facility] [address] [facility] [id number] [place] [address] Sep, [facility] [place] [facility] [id number] [place] [address] Sep, [facility] [place] [facility] [address] [facility] [id number] [place] [address] Aug, [facility] [place] [facility] [id number] [place] [address] Aug, [facility] [place] [facility] [id number] [place] [address] Aug, [facility] [place] [facility] [id number] [place] [address] Aug, [facility] [place] [facility] [address] [facility] [id number] [place] [address] Aug, [facility] [place] [facility] [id number] [place] [address] Aug, [facility] [place] [facility] [id number] [place] [address] Aug, [facility] [place] [facility] [id number] [place] [address] Aug, [facility] [place] [facility] [id number] [place] [address] Jul, [facility] [place] [facility] [address] [facility] [id number] [place] [address] Jul, [facility] [place] [facility] [id number] [place] [address] Jun, [facility] [place] [facility] [id number] [place] [address] Jun, [facility] [place] [facility] [id number] [place] [address] Jun, [facility] [place] [facility] [id number] [place] [address] Jun, [facility] [place] [facility] [id number] [place] [address] Jun, [facility] [place] [facility] [id number] [place] [address] Jun, [facility] [place] [facility] [id number] [place] [address] Jun, [facility] [place] [facility] [id number] [place] [address] Jun, [facility] [place] [facility] [id number] [place] [address] Jun, [facility] [place] [facility] [id number] [place] [address] Jun, [facility] [place] [facility] [id number] [place] [address] Jun, [facility] [place] [facility] [id number] [place] [address] Jun, [facility] [place] [facility] [id number] [place] [address] May, [facility] [place] [facility] [id number] [place] [address] May, [facility] [place] [facility] [id number] [place] [address] May, [facility] [place] [facility] [id number] [place] [address] May, [facility] [place] [facility] [id number] [place] [address] May, [facility] [place] [facility] [id number] [place] [address] May, [facility] [place] [facility] [id number] [place] [address] May, [facility] [place] [facility] [id number] [place] [address] May, [facility] [place] [facility] [id number] [place] [address] May, [facility] [place] [facility] [id number] [place] [address] May, [facility] [place] [facility] [id number] [place] [address] May, [facility] [place] [facility] [id number] [place] [address] May, [facility] [place] [facility] [id number] [place] [address] May, [facility] [place] [facility] [id number] [place] [address] Apr, [facility] [place] [facility] [id number] [place] [address] Apr, [facility] [place] [facility] [id number] [place] [address] Mar, [facility] [place] [facility] [id number] [place] [address] Mar, [facility] [place] [facility] [id number] [place] [address] 24 Feb, 2013 [facility] [place] [facility] [id number] [place] [address] 23 Feb, 2013 [facility] [place] [facility] [id number] [place] [address] 05 Feb, 2013 [facility] [place] [facility] [id number] [place] [address] 04 Feb, 2013 [facility] [place] [facility] [id number] [place] [address] Jan, [facility] [place] [facility] [id number] [place] [address] Jan, [facility] [place] [facility] [id number] [place] [address] Jan, [facility] [place] [facility] [address] [facility] [id number] [place] [address] Jan, [facility] [place] [facility] [id number] [place] [address] Jan, [facility] [place] [facility] [id number] [place] [address] Jan, [facility] [place] [facility] [id number] [place] [address] Dec, [facility] [place] [facility] [address] [facility] [id number] [place] [address] Dec, [facility] [place] [facility] [id number] [place] [address] Dec, [facility] [place] [facility] [id number] [place] [address] Dec, [facility] [place] [facility] [id number] [place] [address] Nov, [facility] [place] [facility] [id number] [place] [address] October, [facility] [place] [facility] [id number] [place] [address] October, [facility] [place] [facility] [id number] [place] [address] October, [facility] [place] [facility] [id number] [place] [address] Sep, [facility] [place] [facility] [id number] [place] [address] Sep, [facility] [place] [facility] [id number] [place] [address] Jun, [facility] [place] [facility] [id number] [place] [address] Jun, [facility] [place] [facility] [id number] [place] [address] Jun, [facility] [place] [facility] [id number] [place] [address] Apr, [facility] [place] [facility] [address] [id number] [place] [address] Apr, [facility] [place] [facility] [id number] [place] [address] Apr, [facility] [place] [facility] [id number] [place] [address] Apr, [facility] [place] [facility] [id number] [place] [address] Mar, [facility] [place] [facility] [id number] [place] [address] Mar, [facility] [place] [facility] [id number] [place] [address] Mar, [facility] [place] [facility] [id number] [place] [address] Mar, [facility] [place] [facility] [id number] [place] [address] Feb, [facility] [place] [facility] [id number] [place] [address] Feb, [facility] [place] [facility] [id number] [place] [address] Feb, [facility] [place] [facility] [id number] [place] [address] Jan, [facility] [place] [facility] [id number] [place] [address] Jan, [facility] [place] [facility] [id number] [place] [address] Jan, [facility] [place] [facility] [id number] [place] [address] Jan, [facility] [place] [facility] [id number] [place] [address] Dec, [facility] [place] [facility] [id number] [place] [address] Dec, [facility] [place] [facility] [id number] [place] [address] Nov, [facility] [place] [facility] [id number] [place] [address] Nov, [facility] [place] [facility] [id number] [place] [address] October, [facility] [place] [facility] [id number] [place] [address] October, [facility] [place] [facility] [id number] [place] [address] October, [facility] [place] [facility] [id number] [place] [address] Sep, [facility] [place] [facility] [id number] [place] [address] Sep, [facility] [place] [facility] [id number] [place] [address] Sep, [facility] [place] [facility] [id number] [place] [address] Aug, [facility] [place] [facility] [id number] [place] [address] Aug, [facility] [place] [facility] [id number] [place] [address] Aug, [facility] [place] [facility] [id number] [place] [address] Aug, [facility] [place] [facility] [id number] [place] [address] Aug, [facility] [place] [facility] [id number] [place] [address] Jul, [facility] [place] [facility] [id number] [place] [address] 16 Jul, 2011 [facility] [place] [facility] [id number] [place] [address] 13 Jul, 2011 [facility] [place] [facility] [id number] [place] [address] Jul, [facility] [place] [facility] [id number] [place] [address] Jul, [facility] [place] [facility] [id number] [place] [address] Jul, [facility] [place] [facility] [id number] [place] [address] Jul, [facility] [place] [facility] [id number] [place] [address] Jul, [facility] [place] [facility] [id number] [place] [address] Jun, [facility] [place] [facility] [id number] [place] [address] Jun, [facility] [place] [facility] [id number] [place] [address] May, [facility] [place] [facility] [id number] [place] [address] May, [facility] [place] [facility] [id number] [place] [address] May, [facility] [place] [facility] [id number] [place] [address] May, [facility] [place] [facility] [id number] [place] [address] Apr, [facility] [place] [facility] [id number] [place] [address] Apr, [facility] [place] [facility] [id number] [place] [address] Apr, [facility] [place] [facility] [id number] [place] [address] Mar, [facility] [place] [facility] [id number] [place] [address] Mar, [facility] [place] [facility] [id number] [place] [address] Mar, [facility] [place] [facility] [id number] [place] [address] 2011 [facility] [id number] [place] [address] Dec, [facility] [id number] [place] [address] October, [facility] [id number] [place] [address] May, [facility] [id number] [place] [address] May, [facility] [id number] [place] [address] May, [facility] [id number] [place] [address] May, [facility] [id number] [place] [address] Mar, [facility] [id number] [place] [address] Mar, [facility] [id number] [place] [address] May, [facility] [id number] [place] [address] May, [facility] [id number] [place] [address] May, [facility] [id number] [place] [address] May, [facility] [id number] [place] [address] Apr, [facility] [id number] [place] [address] Apr, [facility] [id number] [place] [address] October, IMMUNIZATIONS No Known Immunizations SOCIAL HISTORY Never Assessed REASON FOR VISIT PLAN OF CARE VITAL SIGNS Blood pressure systolic 110 mmHg 2013-09-04 Blood pressure diastolic 74 mmHg 2013-09-04 MEDICATIONS Unknown Medications RESULTS No Results PROCEDURES [...]
--- OUTSIDE RECORDS SUMMARY | 2020-01-13 11:55 | XMS REPORT ---
Author Author Monique RAHMAN [facility] Address [address] [place] [address] Care Team Providers Care Cafe Team Member Name Role Phone RASHEED RAHMAN Unavailable PROBLEMS Type Condition ICD9-CM Code JGE48-OL Code Onset Dates Condition S tatus SNOMED Code Problem MRSA (methicillin resistant staph aureus) culture positive Z22.322 Active 036611323 Problem History of illicit drug use Z87.898 Ac tive 209617014 Problem Snoring R06.83 Active 63905555 Problem Dysthymic disorder F34.1 Active 7 8161883 Problem Impaired circulation I99.9 Active 01312012 Problem Arthritis M19.90 Active 5678538 Problem 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 Active 156810689 Problem Mild persistent asthma without complication J45.30 Active 897767928 Problem Varicose veins of both lower extremities I83.93 Active 53423199 Problem On home oxygen therapy Z99.81 Active 377099199637 Problem Mild chronic obstructive pulmonary disease J44.9 Active 799038602 Problem Neuropathy G62.9 Active 016487132 Problem Essential hypertension I10 Active 71841363 Problem Social phobia F40.10 Active 567002 02 Problem Major depressive disorder, recurrent episode, moderate F33.1 Active 210704799 Problem Mood disorder F39 Active 812272 05 Problem Psychotic disorder F29 Active 6 9000049 Problem Hypertension, benign I10 Active 14939006 Problem Body mass index (BMI) 40.0-44.9, adult Z68.41 Active 370015586 Problem Panic disorder without agoraphobia F41.0 Active 92082993 Problem Unspecified psychosis not du e to a substance or known physiological condition F29 Active 218908537 Problem Agoraphobia F40.00 Active 79914110 Problem Fatigue R53.83 Active 30669072 Problem Onychomycosis B35.1 Active 909702 008 Problem Major depressive disorder in full remission F32.5 Active 61088142 Problem Slow transit constipation K59.01 Acti ve 80518539 Problem Chronic obstructive pulmonary disease, unspecified COPD ty pe J44.9 Active 22086466 ALLERGIES No Information ENCOUNTERS Encounter Location Date Diagnosis [place] [address] [address] Aug, [place] [address] [address] Aug, [place] [address] [address] Jul, [place] [address] [address] Jul, [place] [address] [address] Jul, Unspecified psychosis not due to a subst ance or known physiological condition F29 ; Chronic obstructive pulmonary disease, unspecified COPD type J44.9 and Body mass index (BMI) 40.0-44.9, adult Z68.41 [place] [address] [address] Jun, [place] [address] [address] Jun, Morbid obesity E66.01 [place] [address] [address] May, Morbid obesity E66.01 [place] [address] [address] May, Encounter for immunization Z23 [place] [address] [address] May, Major depressive disorder, recurrent epi sode, moderate F33.1 ; Panic disorder without agoraphobia F41.0 and Morbid obesity E66.01 [place] [address] [address] May, Major depressive disorder in full remiss ion F32.5 and Panic disorder without agoraphobia F41.[address] [address] Apr, Morbid obesity E66.[address] [address] Apr, Slow transit constipation K59.01 and Lois lulitis of left lower extremity L03.[address] [address] Apr, Morbid obesity E66.[address] [address] Apr, [address] [address] Apr, Major depressive disorder, recurrent epi sode, moderate F33.1 and Panic disorder without agoraphobia F41.[address] [address] Mar, Viral upper respiratory tract infection J06.[address] [address] Mar, Bronchitis J40 and Encounter for immuniz ation Z23 [address] [address] Mar, Morbid obesity E66.[address] [address] Feb, Major depressive disorder, recurrent epi sode, moderate F33.1 and Panic disorder without agoraphobia F41.[address] [address] Feb, Morbid obesity E66.[address] [address] 06 Feb, 2019 Onychomycosis B35.1 ; Type 2 diabetes me llitus with diabetic neuropathic arthropathy E11.610 and Xerosis of skin L85.[address] [id number] [place] [address] Feb, Major depressive disorder, recurrent epi sode, moderate F33.1 ; Panic disorder without agoraphobia F41.0 and Morbid obesity E66.01 [place] [address] [address] Jan, Major depressive disorder in full remiss ion F32.5 and Panic disorder without agoraphobia F41.0 [place] [address] [address] Jan, Pneumonia of both lower lobes due to inf ectious organism J18.1 and Morbid obesity E66.01 [place] [address] [address] Jan, [place] [address] [address] Jan, Major depressive disorder in full remiss ion F32.5 and Panic disorder without agoraphobia F41.0 [place] [address] [address] Jan, [place] [address] [address] Jan, Major depressive disorder, recurrent epi sode, moderate F33.1 ; Panic disorder without agoraphobia F41.0 and Morbid obesity E66.01 [place] [address] [address] Dec, Bilious vomiting with nausea R11.14 ; Co ughing R05 and Choking, subsequent encounter T17.308D [place] [address] [address] Dec, Morbid obesity E66.01 [place] [address] [address] Dec, Major depressive disorder, recurrent epi sode, moderate F33.1 and Panic disorder without agoraphobia F41.0 [place] [address] [address] Dec, [place] [address] [address] Dec, Major depressive disorder, recurrent epi sode, moderate F33.1 [place] [address] [address] Nov, Major depressive disorder, recurrent epi sode, moderate F33.1 ; Panic disorder without agoraphobia F41.0 and Morbid obesity E66.01 [place] [address] [address] Nov, Morbid obesity E66.01 [place] [address] [address] Nov, Major depressive disorder, recurrent epi sode, moderate F33.1 and Panic disorder without agoraphobia F41.0 [facility] [place] [address] [address] Nov, Allergic reaction, initial e ncounter T78.40XA and Morbid obesity E66.[address] [address] Nov, [address] [address] Nov, Morbid obesity E66.01 ; Swallowing probl em R13.10 and Hypertension, benign I10 [facility] IN [place] [id number] [place] [address] Nov, Morbid obesity E66.01 ; COPD exacerbation J44.1 and Non- recurrent acute suppurative otitis media of left ear without spontaneous rupture of tympanic membrane H66.[address] [address] Nov, Onychomycosis B35.1 ; Neuropathy G62.9 a nd Fissure in skin of foot R23.[address] [address] October, Major depressive disorder, recurrent epi sode, moderate F33.1 ; Panic disorder without agoraphobia F41.0 and Morbid obesity E66.01 [facility] IN [facility] [address] [facility] [id number] [address] [place] [address] October, Viral upper respiratory trac t infection J06.9 [facility] [address] [address] October, [facility] [address] [address] October, Major depressive disorder, recurrent epi sode, moderate F33.1 and Panic disorder without agoraphobia F41.0 [facility] [address] [address] October, [facility] [address] [address] October, [facility] [address] [address] October, [facility] [address] [address] October, [place] [address] [address] October, [facility] [address] [address] October, [facility] [address] [address] October, Major depressive disorder, recurrent epi sode, moderate F33.1 and Panic disorder without agoraphobia F41.0 [facility] [address] [address] Sep, Morbid obesity E66.01 and Lumbar neuriti s M54.16 [facility] [address] [place] [id number] [place] [address] Sep, Panic disorder without agoraphobia F41.0 and Major depressive disorder, recurrent episode, moderate F33.1 [facility] [address] [facility] [id number] [address] [place] [address] Sep, Gastroenteritis K52.9 ; Low back pain M54.5 ; Other chronic pain G89.29 and Morbid obesity E66.01 [facility] [address] [address] Sep, Major depressive disorder, recurrent epi sode, moderate F33.1 ; Panic disorder without agoraphobia F41.0 and Social phobia F40.10 [place] [address] [address] Sep, Panic disorder without agoraphobia F41.0 [place] [address] [address] Sep, Panic disorder without agoraphobia F41.0 [place] [address] [address] Aug, Panic disorder without agoraphobia F41.0 ; Major depressive disorder, recurrent episode, moderate F33.1 ; Social phobia F40.10 ; Psychotic disorder F29 ; Tardive dyskinesia G24.01 and Morbid obesity E66.01 [place] [address] [address] Aug, Dysthymic disorder F34.1 and Psychotic d isorder F29 [place] [address] [address] Aug, Encounter for Medicare annual wellness e xam Z00.00 ; Morbid obesity E66.01 and 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 arthropathy E11.610 [place] [address] [address] Aug, Dysthymic disorder F34.1 and Psychotic d isorder F29 [place] [address] [address] Aug, Neuropathy G62.9 ; Onychomycosis B35.1 a nd Xerosis of skin L85.3 [place] [address] [address] Jul, [place] [address] [address] Jul, Mood disorder F39 ; Wheezing R06.2 ; Diego sanchez, initial encounter T17.308A and Coughing R05 [place] [address] [address] 07 Jul, 2018 Low back pain M54.5 [facility] [address] [facility] [id number] [address] [place] [address] Jun, Flu-like symptoms R68.89 ; B [place] 45.0-49.9, adult Z68.42 ; COPD exacerbation J44.1 and Acute bronchitis J20.9 [place] [address] [address] Jun, [place] [address] [address] May, [place] [address] [address] May, Onychomycosis B35.1 and Type 2 diabetes mellitus with diabetic neuropathic arthropathy E11.610 [place] [address] [address] May, Low back pain M54.5 and Edema leg R60.0 [place] [address] [address] May, BMI 45.0-49.9, adult Z68.42 ; Well woman exam with routine gynecological exam Z01.419 and Breast cancer screening Z12.[address] [address] Apr, Arthritis M19.90 [place] [address] [address] 16 Apr, 2018 Arthritis M19.90 and Otalgia of both ear s H92.03 [place] [address] [address] Feb, [place] [address] [address] 28 Feb, 2018 Low back pain M54.5 ; Other chronic pain G89.29 ; Exertional asthma J45.990 and Encounter for immunization Z23 [place] [address] [address] Feb, Skin fissures R23.4 ; Neuropathy G62.9 a nd Onychomycosis B35.1 [place] [address] [address] 05 Feb, 2018 Dysthymic disorder F34.1 [place] [address] [address] 04 Feb, 2018 [place] [address] [address] Jan, [place] [address] [address] Jan, Abrasion of right elbow, initial encount er S50.311A ; Abrasion, right knee, initial encounter S80.211A and Sprain of other ligament of right ankle, initial encounter S93.491A [place] [address] [address] Jan, [facility] [address] [facility] [id number] [address] [place] [address] Jan, Injury of left ankle, initia l encounter S99.912A ; Fall down stairs, initial encounter W10.8XXA and BMI 45.0-49.9, adult Z68.42 [place] [address] [address] Jan, COPD exacerbation J44.1 [place] [address] [address] 13 Jan, 2018 Dysfunction of both eustachian tubes H69 .83 [place] [address] [address] 08 Jan, 2018 Bronchitis J40 and Acute suppurative giovana tis media of left ear without spontaneous rupture of tympanic membrane, recurrence not specified H66.002 [place] [address] [address] Jan, [place] [address] [address] Jan, Bronchitis J40 and BMI 40.0-44.9, adult Z68.41 [place] [address] [address] Jan, [place] [address] [address] Dec, Gastric pain R10.9 [place] [address] [address] Dec, [place] [address] [address] Dec, History of illicit drug use Z87.898 ; Ne uropathy G62.9 ; COPD (chronic obstructive pulmonary disease) with chronic bronchitis J44.9 and Acute pain of right knee M25.561 [place] [address] [address] Nov, [place] [address] [address] Nov, Onychomycosis B35.1 and Contusion of lef t foot, subsequent encounter S90.32XD [address] [address] Nov, COPD exacerbation J44.1 [place] [address] [address] Sep, [place] [address] [address] Sep, Dysthymic disorder F34.1 ; Tobacco abuse Z72.0 ; Pain in right knee M25.561 ; Pain in left knee M25.562 ; Other chronic pain G89.29 and BMI 40.0- 44.9, adult Z68.[address] [address] 22 Aug, 2017 Major depressive disorder, recurrent epi sode, moderate F33.1 and Social phobia F40.[address] [address] 14 Aug, 2017 Dysthymic disorder F34.1 ; Non-pressure chronic ulcer of left thigh, unspecified ulcer stage L97.129 ; Tobacco abuse Z72.0 ; Mild chronic obstructive pulmonary disease J44.9 and Forgetfulness R68.[address] [address] 09 Aug, 2017 Onychomycosis B35.1 ; Fissure in skin of foot R23.4 and Foot callus L84 [facility] [place] [id number] [place] [address] Jul, Right medial knee pain M25.5 61 ; Upper respiratory tract infection, unspecified type J06.9 and BMI 40.0-44.9, adult Z68.41 [facility] [address] [address] 08 Jul, 2017 Nausea and vomiting, intract ability of vomiting not specified, unspecified vomiting type R11.2 ; Left ear pain H92.02 and Gastric pain R10.[address] [address] Apr, Encounter for immunization Z23 [address] [address] Apr, Onychomycosis B35.1 ; Xerosis of skin L8 5.3 ; Neuropathy G62.9 and Type 2 diabetes mellitus with diabetic neuropathic arthropathy E11.[address] [address] Jan, Onychomycosis B35.1 and Neuropathy G62.9 [facility] [address] [address] Dec, [facility] [address] [address] Dec, [facility] [address] [address] Nov, [facility] [address] [address] Aug, [facility] [address] [address] Aug, [facility] [address] [address] Jul, [facility] [address] [address] Jul, [facility] [address] [address] Jul, Decubitus ulcer of left thigh, stage 2 L 89.892 [place] [address] [address] 17 Jul, 2016 Decubitus ulcer of left thigh, stage 2 L 89.892 [place] [address] [address] 17 Jul, 2016 [facility] [address] [address] 15 Jul, 2016 Decubitus ulcer of left thigh, stage 2 L 89.892 [facility] [address] [address] 14 Jul, 2016 [facility] [address] [address] 13 Jul, 2016 Cellulitis of other specified site L03.8 18 ; Illicit drug use F19.90 and Decubitus ulcer of left thigh, stage 2 L89.892 [place] [address] [address] Jul, [place] [address] [address] Jul, Cellulitis of right breast N61.0 [place] [address] [address] Jun, [place] [address] [address] Jun, [place] [address] [address] Jun, Wheezing R06.2 and Arthralgia, unspecifi ed joint M25.50 [place] [address] [address] May, [place] [address] [address] May, [place] [address] [address] May, [place] [address] [address] May, Shortness of breath R06.02 [place] [address] [address] 02 May, 2016 Onychomycosis B35.1 and Fissure in skin of foot R23.4 [place] [address] [address] Apr, [facility] [address] [facility] [id number] [address] [place] [address] Apr, Dizziness R42 [place] [address] [address] 14 Apr, 2016 Shortness of breath R06.02 ; Essential h ypertension I10 ; Dizziness R42 and On home oxygen therapy Z99.81 [place] [address] [address] Apr, [facility] [address] [address] Apr, [facility] [address] [address] Apr, [facility] [address] [address] Apr, [facility] [address] [address] Apr, [facility] [address] [address] Apr, [facility] [address] [address] Apr, [facility] [address] [address] Mar, Mild chronic obstructive pulmonary disea se J44.9 [facility] [address] [address] Mar, [facility] [address] [address] Mar, Epigastric pain R10.13 ; Low back pain M 54.5 ; Other chronic pain G89.29 and Breast cancer screening Z12.39 [facility] [address] [address] Mar, [facility] [address] [address] Mar, [facility] [address] [address] Feb, [facility] [address] [address] Feb, [facility] [address] [address] Feb, Fissure in skin of foot R23.4 and Onycho mycosis B35.1 [facility] [address] [address] Jan, Agoraphobia F40.00 [facility] [address] [address] Dec, Agoraphobia F40.00 [facility] [address] [address] Dec, Mild persistent asthma without complicat ion J45.30 ; Dysthymic disorder F34.1 and Upper respiratory tract infection, unspecified type J06.9 [facility] [address] [address] Nov, Agoraphobia F40.00 [place] [address] [address] October, Agoraphobia F40.00 [place] [address] [address] Sep, Panic disorder without agoraphobia F41.0 ; Agoraphobia F40.00 and Dysthymic disorder F34.1 [place] [address] [address] Sep, Panic attacks F41.0 [facility] [address] [address] Sep, [facility] [address] [address] Sep, Panic disorder without agoraphobia F41.0 ; Varicose veins of both lower extremities I83.93 and Fatigue R53.83 [place] [address] [address] Sep, Fatigue R53.83 [facility] [address] [address] Sep, [facility] [address] [address] Aug, [facility] [address] [address] Aug, [place] [address] [address] Aug, Type 2 diabetes mellitus with diabetic n europathic arthropathy E11.610 [place] [address] [address] Aug, Panic disorder without agoraphobia F41.0 ; Agoraphobia F40.00 and Dysthymic disorder F34.1 [place] [address] [address] Aug, Shortness of breath R06.02 ; Panic attac ks F41.0 ; COPD (chronic obstructive pulmonary disease) J44.9 ; Tobacco abuse Z72.0 ; Family history of diabetes mellitus Z83.3 and Weight gain R63.5 [place] [address] [address] Aug, [place] [address] [address] Jul, [place] [address] [address] Jun, Onychomycosis B35.1 ; Neuropathy G62.9 a nd Impaired circulation I99.[address] [address] 09 Mar, 2015 Fissure in skin of foot R23.4 ; Onychomy cosis B35.1 and Type 2 diabetes mellitus with diabetic neuropathic arthropathy E11.610 [place] [address] [address] 18 Feb, 2015 Family history of coronary arteriosclero sis V17.3 [place] [address] [address] 15 Feb, 2015 Allergic rhinitis due to pollen 477.0 ; Unspecified breast screening V76.10 ; Anxiety 300.00 and Family history of coronary arteriosclerosis V17.3 [place] [address] [id number] [place] [address] Jan, [facility] [address] [id number] [place] [address] Dec, [facility] [address] [id number] [place] [address] Dec, Onychomycosis 110.1 and Skin fissures 70 9.8 [facility] [address] [id number] [place] [address] Sep, [facility] [address] [id number] [place] [address] Sep, [facility] [address] [id number] [place] [address] Aug, [facility] [address] [id number] [place] [address] Aug, [facility] [address] [id number] [place] [address] Jul, [facility] [address] [id number] [place] [address] Jul, [facility] [address] [id number] [place] [address] Jun, [facility] [address] [id number] [place] [address] Jun, [facility] [address] [id number] [place] [address] Jun, [facility] [address] [id number] [place] [address] Jun, [facility] [address] [id number] [place] [address] Jun, [facility] [address] [id number] [place] [address] May[facility] [address] [id number] [place], [place] [address] May, [facility] [address] [id number] [place] [address] May, [facility] [place] [facility] [address] [id number] [place] [address] May, [facility] [place] [facility] [address] [id number] [place] [address] May, [facility] [place] [facility] [address] [id number] [place] [address] May, [facility] [place] [facility] [address] [id number] [place] [address] May, [facility] [place] [facility] [address] [id number] [place] [address] May, [facility] [place] [facility] [address] [id number] [place] [address] Apr, [facility] [place] [facility] [address] [id number] [place] [address] Apr, [facility] [place] [facility] [address] [id number] [place] [address] Apr, [facility] [place] [facility] [address] [id number] [place] [address] Apr, [facility] [place] [facility] [address] [id number] [place] [address] Apr, [facility] [place] [facility] [address] [id number] [place] [address] Apr, [facility] [place] [facility] [address] [id number] [place] [address] Apr, [facility] [place] [facility] [address] [id number] [place] [address] Apr, [facility] [place] [facility] [id number] [place] [address] Apr, [facility] [place] [facility] [address] [id number] [place] [address] Apr, [facility] [place] [facility] [address] [id number] [place] [address] Mar, [facility] [place] [facility] [address] [facility] [id number] [place] [address] Mar, 2013 [facility] [place] [facility] [address] [facility] [id number] [place] [address] Mar, [facility] [place] [facility] [address] [facility] [id number] [place] [address] Mar, [facility] [place] [facility] [address] [id number] [place] [address] Mar, [facility] [place] [facility] [address] [facility] [id number] [place] [address] Mar, 2013 [facility] [place] [facility] [address] [facility] [id number] [place] [address] Mar, [facility] [place] [facility] [address] [id number] [place] [address] Mar, 2013 [facility] [place] [facility] [address] [id number] [place] [address] Mar, [facility] [place] [facility] [address] [id number] [place] [address] Mar, [facility] [place] [facility] [address] [id number] [place] [address] Mar, [facility] [place] [facility] [address] [id number] [place] [address] Mar, 2013 [facility] [place] [facility] [address] [id number] [place] [address] Mar, [facility] [place] [facility] [address] [facility] [id number] [place] [address] Mar, 2013 [facility] [place] [facility] [address] [facility] [id number] [place] [address] Mar, [facility] [place] [facility] [address] [facility] [id number] [place] [address] Mar, [facility] [place] [facility] [address] [id number] [place] [address] Mar, [facility] [place] [facility] [address] [id number] [place] [address] 16 Mar, 2013 [facility] [place] [facility] [address] [facility] [id number] [place] [address] 16 Mar, 2013 [facility] [place] [facility] [address] [facility] [id number] [place] [address] 15 Mar, 2013 [facility] [place] [facility] [address] [id number] [place] [address] 14 Mar, 2013 [facility] [place] [facility] [address] [facility] [id number] [place] [address] 14 Mar, 2013 [facility] [place] [facility] [address] [facility] [id number] [place] [address] 14 Mar, 2013 [facility] [place] [facility] [address] [id number] [place] [address] 14 Mar, 2013 [facility] [place] [facility] [address] [id number] [place] [address] 09 Mar, 2013 [facility] [place] [facility] [address] [id number] [place] [address] 09 Mar, 2013 [facility] [place] [facility] [address] [id number] [place] [address] 09 Mar, 2013 [facility] [place] [facility] [address] [id number] [place] [address] 09 Mar, 2013 [facility] [place] [facility] [address] [id number] [place] [address] 30 Sep, 2013 [facility] [place] [facility] [address] [id number] [place] [address] 30 Sep, 2013 [facility] [place] [facility] [address] [id number] [place] [address] 30 Sep, 2013 [facility] [place] [facility] [address] [id number] [place] [address] 30 Sep, 2013 [facility] [place] [facility] [address] [id number] [place] [address] 26 Sep, 2013 [facility] [place] [facility] [address] [id number] [place] [address] 26 Sep, 2013 [facility] [place] [facility] [address] [id number] [place] [address] 09 Feb, 2013 [facility] [place] [facility] [address] [id number] [place] [address] Feb, 2013 [facility] [place] [facility] [address] [facility] [id number] [place] [address] Feb, 2013 [facility] [place] [facility] [address] [id number] [place] [address] Feb, 2013 [facility] [place] [facility] [address] [facility] [id number] [place] [address] Feb, 2013 [facility] [place] [facility] [address] [id number] [place] [address] Feb, 2013 [facility] [place] [facility] [address] [id number] [place] [address] Jan, [facility] [place] [facility] [address] [id number] [place] [address] Jan, [facility] [place] [facility] [address] [id number] [place] [address] Jan, [facility] [place] [facility] [address] [id number] [place] [address] Jan, [facility] [place] [facility] [address] [id number] [place] [address] Jan, [facility] [place] [facility] [address] [id number] [place] [address] Jan, [facility] [place] [facility] [address] [id number] [place] [address] Jan, [facility] [place] [facility] [address] [id number] [place] [address] Jan, [facility] [place] [facility] [address] [id number] [place] [address] Jan, [facility] [place] [facility] [address] [id number] [place] [address] Jan, [facility] [place] [facility] [address] [id number] [place] [address] Jan, [facility] [place] [facility] [address] [id number] [facility] [place] [address] Jan, [facility] [place] [facility] [address] [facility] [id number] [facility] [place] [address] Jan, [facility] [place] [facility] [address] [facility] [id number] [facility] [place] [address] Dec, [facility] [place] [facility] [address] [facility] [id number] [facility] [place] [address] Dec, [facility] [place] [facility] [address] [facility] [id number] [place] [address] Dec, [facility] [place] [facility] [address] [facility] [id number] [facility] [place] [address] Dec, [facility] [place] [facility] [address] [facility] [id number] [place] [address] Dec, [facility] [place] [facility] [address] [id number] [place] [address] Dec, [facility] [place] [facility] [address] [facility] [id number] [place] [address] Dec, [facility] [place] [facility] [address] [facility] [id number] [place] [address] Dec, [facility] [place] [facility] [address] [facility] [id number] [place] [address] Dec, [facility] [place] [facility] [address] [id number] [place] [address] Dec, [facility] [place] [facility] [address] [facility] [id number] [place] [address] Dec, [facility] [place] [facility] [address] [facility] [id number] [place] [address] Dec, [facility] [place] [facility] [address] [facility] [id number] [place] [address] Dec, [facility] [place] [facility] [address] [facility] [id number] [place] [address] Dec, [facility] [place] [facility] [address] [facility] [id number] [facility] [place] [address] Dec, [facility] [place] [facility] [address] [facility] [id number] [facility] [place] [address] Dec, [facility] [place] [facility] [address] [facility] [id number] [facility] [place] [address] Dec, [facility] [place] [facility] [address] [id number] [place] [address] Dec, [facility] [place] [facility] [address] [facility] [id number] [facility] [place] [address] Nov, [facility] [place] [facility] [address] [facility] [id number] [facility] [place] [address] Nov, [facility] [place] [facility] [address] [facility] [id number] [place] [address] Nov, [facility] [place] [facility] [address] [id number] [place] [address] Nov, [facility] [place] [facility] [address] [id number] [place] [address] Nov, [facility] [place] [facility] [address] [facility] [id number] [place] [address] Nov, [facility] [place] [facility] [address] [id number] [place] [address] Nov, [facility] [place] [facility] [address] [id number] [place] [address] Nov, [facility] [place] [facility] [address] [id number] [place] [address] Nov, [facility] [place] [facility] [address] [facility] [id number] [facility] [place] [address] Nov, [facility] [place] [facility] [address] [facility] [id number] [place] [address] Nov, [facility] [place] [facility] [address] [facility] [id number] [place] [address] Nov, [facility] [place] [facility] [address] [id number] [place] [address] Nov, [facility] [place] [facility] [address] [id number] [place] [address] Nov, [facility] [place] [facility] [address] [id number] [place] [address] Nov, [facility] [place] [facility] [address] [id number] [place] [address] Nov, [facility] [place] [facility] [address] [id number] [place] [address] Nov, [facility] [place] [facility] [address] [id number] [place] [address] Nov, [facility] [place] [facility] [address] [id number] [place] [address] Nov, [facility] [place] [facility] [address] [id number] [place] [address] Nov, [facility] [place] [facility] [address] [id number] [place] [address] October, [facility] [place] [facility] [address] [id number] [place] [address] October, [facility] [place] [facility] [address] [id number] [place] [address] October, [facility] [place] [facility] [address] [id number] [place] [address] October, [facility] [place] [facility] [address] [id number] [place] [address] Sep, [facility] [place] [facility] [address] [id number] [place] [address] Sep, [facility] [place] [facility] [address] [id number] [place] [address] Sep, [facility] [place] [facility] [address] [id number] [place] [address] Sep, [facility] [place] [facility] [address] [id number] [place] [address] Sep, [facility] [place] [facility] [address] [id number] [place] [address] Sep, [facility] [place] [facility] [address] [facility] [id number] [place] [address] Sep, [facility] [place] [facility] [address] [facility] [id number] [place] [address] Sep, [facility] [place] [facility] [address] [id number] [place] [address] Sep, [facility] [place] [facility] [address] [id number] [place] [address] Aug, [facility] [place] [facility] [address] [facility] [id number] [place] [address] Aug, [facility] [place] [facility] [address] [id number] [place] [address] Aug, [facility] [place] [facility] [address] [id number] [place] [address] Aug, [facility] [place] [facility] [address] [id number] [place] [address] Aug, [facility] [place] [facility] [address] [id number] [place] [address] Aug, [facility] [place] [facility] [address] [id number] [place] [address] Aug, [facility] [place] [facility] [address] [id number] [place] [address] Aug, [facility] [place] [facility] [address] [id number] [place] [address] Jul, [facility] [place] [facility] [address] [id number] [place] [address] Jul, [facility] [place] [facility] [address] [facility] [id number] [place] [address] Jun, [facility] [place] [facility] [address] [id number] [place] [address] Jun, [facility] [place] [facility] [address] [id number] [place] [address] Jun, [facility] [place] [facility] [address] [id number] [place] [address] Jun, [facility] [place] [facility] [address] [id number] [place] [address] Jun, [facility] [place] [facility] [address] [id number] [place] [address] Jun, [facility] [place] [facility] [address] [id number] [place] [address] Jun, [facility] [place] [facility] [address] [id number] [place] [address] Jun, [facility] [place] [facility] [address] [id number] [place] [address] Jun, [facility] [place] [facility] [address] [id number] [place] [address] Jun, [facility] [place] [facility] [address] [id number] [place] [address] Jun, [facility] [place] [facility] [address] [id number] [place] [address] Jun, [facility] [place] [facility] [address] [id number] [place] [address] May, [facility] [place] [facility] [address] [id number] [place] [address] May, [facility] [place] [facility] [address] [id number] [place] [address] May, [facility] [place] [facility] [address] [id number] [place] [address] May, [facility] [place] [facility] [address] [id number] [place] [address] May, [facility] [place] [facility] [address] [id number] [place] [address] May, [facility] [place] [facility] [address] [id number] [place] [address] May, [facility] [place] [facility] [address] [id number] [place] [address] May, [facility] [place] [facility] [address] [id number] [place] [address] May, [facility] [place] [facility] [address] [id number] [place] [address] May, [facility] [place] [facility] [address] [id number] [place] [address] May, [facility] [place] [facility] [address] [id number] [place] [address] May, [facility] [place] [facility] [address] [id number] [place] [address] May, [facility] [place] [facility] [address] [id number] [place] [address] Apr, [facility] [place] [facility] [address] [id number] [place] [address] Apr, [facility] [place] [facility] [address] [id number] [place] [address] Mar, [facility] [place] [facility] [address] [id number] [place] [address] Mar, [facility] [place] [facility] [address] [id number] [place] [address] 24 Feb, 2013 [facility] [place] [facility] [address] [id number] [place] [address] Feb, [facility] [place] [facility] [address] [id number] [place] [address] Feb, [facility] [place] [facility] [address] [id number] [place] [address] Feb, [facility] [place] [facility] [address] [id number] [place] [address] Jan, [facility] [place] [facility] [address] [id number] [place] [address] Jan, [facility] [place] [facility] [address] [id number] [place] [address] Jan, [facility] [place] [facility] [address] [id number] [place] [address] Jan, [facility] [address] [id number] [place] [address] Jan, [facility] [place] [facility] [address] [id number] [place] [address] Jan, [facility] [place] [facility] [address] [id number] [place] [address] Dec, [facility] [place] [facility] [address] [id number] [place] [address] Dec, [facility] [place] [facility] [address] [id number] [place] [address] Dec, [facility] [place] [facility] [address] [id number] [place] [address] Dec, [facility] [place] [facility] [address] [id number] [place] [address] Nov, [facility] [place] [facility] [address] [id number] [place] [address] October, [facility] [place] [facility] [address] [id number] [place] [address] October, [facility] [place] [facility] [address] [id number] [place] [address] October, [facility] [address] [id number] [place] [address] Sep, [facility] [address] [id number] [place] [address] Sep, [facility] [address] [id number] [place] [address] Jun, [facility] [address] [id number] [place] [address] Jun, [facility] [address] [id number] [place] [address] Jun, [facility] [address] [id number] [place] [address] Apr, [facility] [address] [id number] [place] [address] Apr, [facility] [address] [id number] [place] [address] Apr, [facility] [address] [id number] [place] [address] Apr, [facility] [address] [id number] [place] [address] Mar, [facility] [address] [id number] [place] [address] Mar, [facility] [address] [id number] [facility] [place] [address] Mar, [facility] [address] [id number] [place] [address] Mar, [facility] [address] [id number] [place] [address] Feb, [facility] [address] [id number] [place] [address] Feb, [facility] [address] [id number] [place] [address] Feb, [facility] [address] [id number] [place] [address] Jan, [facility] [address] [id number] [place] [address] Jan, [facility] [address] [id number] [place] [address] Jan, [facility] [address] [id number] [place] [address] Jan, [facility] [address] [id number] [place] [address] Dec, [facility] [address] [id number] [place] [address] Dec, [facility] [address] [id number] [place] [address] Nov, [facility] [address] [id number] [place] [address] Nov, [facility] [address] [id number] [place] [address] October, [facility] [address] [id number] [place] [address] October, [facility] [address] [id number] [place] [address] October, [facility] [address] [id number] [place] [address] Sep, [facility] [address] [id number] [place] [address] Sep, [facility] [address] [id number] [place] [address] Sep, [facility] [address] [id number] [place] [address] Aug, [facility] [address] [id number] [place] [address] Aug, [facility] [address] [id number] [place] [address] Aug, [facility] [address] [id number] [place] [address] Aug, [facility] [address] [id number] [place] [address] Aug, [facility] [address] [id number] [place] [address] Jul, [facility] [address] [id number] [place] [address] 16 Jul, 2011 [facility] [address] [id number] [place] [address] 13 Jul, 2011 [facility] [address] [id number] [place] [address] 09 Jul, 2011 [facility] [address] [id number] [place] [address] 07 Jul, 2011 [facility] [address] [id number] [place] [address] Jul, [facility] [address] [id number] [place] [address] Jul, [facility] [address] [id number] [place] [address] Jul, [facility] [address] [id number] [place] [address] Jun, [facility] [address] [id number] [place] [address] Jun, [facility] [address] [id number] [place] [address] May, [facility] [address] [id number] [place] [address] May, [facility] [address] [id number] [place] [address] May, [facility] [address] [id number] [place] [address] May, [facility] [address] [id number] [place] [address] Apr, [facility] [address] [id number] [place] [address] Apr, [facility] [address] [id number] [place] [address] Apr, [facility] [address] [id number] [place] [address] Mar, [facility] [address] [id number] [place] [address] Mar, [facility] [address] [id number] [place] [address] Mar, [facility] [address] [id number] [place] [address] Mar, [facility] [id number] [place] [address] Dec, [facility] [facility] [address] [id number] [place] [address] October, [facility] [address] [id number] [place] [address] May, [facility] [address] [id number] [place] [address] May, [facility] [address] [id number] [place] [address] May, [facility] [address] [id number] [place] [address] May, [facility] [address] [id number] [place] [address] Mar, [facility] [address] [id number] [place] [address] Mar, [facility] [address] [id number] [place] [address] May, [facility] [address] [id number] [place] [address] May, [facility] [address] [id number] [place] [address] May, [facility] [address] [id number] [place] [address] May, [facility] [address] [id number] [place] [address] Apr, [facility] [address] [id number] [place] [address] Apr, [facility] [id number] [place] [address] October, IMMUNIZATIONS No Known Immunizations SOCIAL HISTORY Never Assessed REASON FOR VISIT PLAN OF CARE VITAL SIGNS MEDICATIONS Unknown Medications RESULTS No Results PROCEDURES No Known procedures INSTRUCTIONS MEDICATIONS ADMINISTERED No Known Medications MEDICAL (GENERAL) HISTORY Type Description Date Medical History Anxiety disorder Medical History depression Medical History acid reflux Medical History asthma Medical History copd Medical History [facility] History hyperlipidemia Surgical History carpal tunnel release [...]
--- OUTSIDE RECORDS SUMMARY | 2020-01-13 11:55 | XMS REPORT ---
Author Author Monique GRAJEDA [facility] Address [address] [place] [address] Care Team Providers Care Call Out Clerk Name Role Phone ARIAS GRAJEDA Unavailable PROBLEMS Type Condition ICD9-CM Code ACL58-LJ Code Onset Dates Condition S tatus SNOMED Code Problem MRSA (methicillin resistant staph aureus) culture positive Z22.322 Active 243648837 Problem History of illicit drug use Z87.898 Ac tive 632814442 Problem Snoring R06.83 Active 14658418 Problem Dysthymic disorder F34.1 Active 7 9353194 Problem Impaired circulation I99.9 Active 71494247 Problem Arthritis M19.90 Active 4209703 Problem 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 Active 309548822 Problem Mild persistent asthma without complication J45.30 Active 697930817 Problem Varicose veins of both lower extremities I83.93 Active 48777657 Problem On home oxygen therapy Z99.81 Active 834615516575 Problem Mild chronic obstructive pulmonary disease J44.9 Active 195448462 Problem Neuropathy G62.9 Active 228975058 Problem Essential hypertension I10 Active 00241270 Problem Social phobia F40.10 Active 115949 02 Problem Major depressive disorder, recurrent episode, moderate F33.1 Active 404747799 Problem Mood disorder F39 Active 716267 05 Problem Psychotic disorder F29 Active 6 5646464 Problem Hypertension, benign I10 Active 65792404 Problem Body mass index (BMI) 40.0-44.9, adult Z68.41 Active 415397781 Problem Panic disorder without agoraphobia F41.0 Active 77539555 Problem Unspecified psychosis not du e to a substance or known physiological condition F29 Active 834448256 Problem Agoraphobia F40.00 Active 64226494 Problem Fatigue R53.83 Active 42918726 Problem Onychomycosis B35.1 Active 742884 008 Problem Major depressive disorder in full remission F32.5 Active 49760832 Problem Slow transit constipation K59.01 Acti ve 33088737 Problem Chronic obstructive pulmonary disease, unspecified COPD ty pe J44.9 Active 66849690 ALLERGIES No Information ENCOUNTERS Encounter Location Date Diagnosis [place] [address] [address] Aug, [place] [address] [address] Aug, [place] [address] [address] Jul, [place] [address] [address] Jul, Morbid obesity E66.01 [place] [address] [address] Jul, Unspecified psychosis not due to a subst ance or known physiological condition F29 ; Chronic obstructive pulmonary disease, unspecified COPD type J44.9 and Body mass index (BMI) 40.0-44.9, adult Z68.41 [place] [address] [address] Jun, [place] [address] [address] Jun, Morbid obesity E66.01 [place] [address] [address] May, Morbid obesity E66.01 [place] [address] [address] May, Encounter for immunization Z23 [place] [address] [address] May, Major depressive disorder, recurrent epi sode, moderate F33.1 ; Panic disorder without agoraphobia F41.0 and Morbid obesity E66.01 [place] [address] [address] May, Major depressive disorder in full remiss ion F32.5 and Panic disorder without agoraphobia F41.0 [place] [address] [address] Apr, Morbid obesity E66.01 [place] [address] [address] Apr, Slow transit constipation K59.01 and Lois lulitis of left lower extremity L03.[address] [address] Apr, Morbid obesity E66.01 [place] [address] [address] Apr, [address] [address] Apr, Major depressive disorder, recurrent epi sode, moderate F33.1 and Panic disorder without agoraphobia F41.[address] [address] Mar, Viral upper respiratory tract infection J06.[address] [address] Mar, Bronchitis J40 and Encounter for immuniz ation Z23 [address] [address] Mar, Morbid obesity E66.[address] [address] Feb, Major depressive disorder, recurrent epi sode, moderate F33.1 and Panic disorder without agoraphobia F41.[address] [address] Feb, Morbid obesity E66.[address] [address] 06 Feb, 2019 Onychomycosis B35.1 ; Type 2 diabetes me llitus with diabetic neuropathic arthropathy E11.610 and Xerosis of skin L85.3 [place] [address] [address] Feb, Major depressive disorder, recurrent epi sode, moderate F33.1 ; Panic disorder without agoraphobia F41.0 and Morbid obesity E66.01 [place] [address] [address] Jan, Major depressive disorder in full remiss ion F32.5 and Panic disorder without agoraphobia F41.0 [place] [address] [address] Jan, Pneumonia of both lower lobes due to inf ectious organism J18.1 and Morbid obesity E66.01 [place] [address] [address] Jan, [place] [address] [address] Jan, Major depressive disorder in full remiss ion F32.5 and Panic disorder without agoraphobia F41.0 [place] [address] [address] Jan, [place] [address] [address] Jan, Major depressive disorder, recurrent epi sode, moderate F33.1 ; Panic disorder without agoraphobia F41.0 and Morbid obesity E66.01 [place] [address] [address] Dec, Bilious vomiting with nausea R11.14 ; Co ughing R05 and Choking, subsequent encounter T17.308D [place] [address] [address] Dec, Morbid obesity E66.01 [place] [address] [address] Dec, Major depressive disorder, recurrent epi sode, moderate F33.1 and Panic disorder without agoraphobia F41.0 [place] [address] [address] Dec, [place] [address] [address] Dec, Major depressive disorder, recurrent epi sode, moderate F33.1 [place] [address] [address] Nov, Major depressive disorder, recurrent epi sode, moderate F33.1 ; Panic disorder without agoraphobia F41.0 and Morbid obesity E66.01 [place] [address] [address] Nov, Morbid obesity E66.01 [place] [address] [address] Nov, Major depressive disorder, recurrent epi sode, moderate F33.1 and Panic disorder without agoraphobia F41.0 [facility] [place] [id number] [place] [address] Nov, Allergic reaction, initial e ncounter T78.40XA and Morbid obesity E66.01 [place] [address] [address] Nov, [address] [address] Nov, Morbid obesity E66.01 ; Swallowing probl em R13.10 and Hypertension, benign I10 [facility] [place] [id number] [place] [address] Nov, Morbid obesity E66.01 ; COPD exacerbation J44.1 and Non- recurrent acute suppurative otitis media of left ear without spontaneous rupture of tympanic membrane H66.002 [place] [address] [address] 07 Nov, 2018 Onychomycosis B35.1 ; Neuropathy G62.9 a nd Fissure in skin of foot R23.4 [place] [address] [address] October, Major depressive disorder, recurrent epi sode, moderate F33.1 ; Panic disorder without agoraphobia F41.0 and Morbid obesity E66.01 [facility] [address] [facility] [id number] [address] [place] [address] October, Viral upper respiratory trac t infection J06.9 [facility] [address] [address] October, [facility] [address] [address] October, Major depressive disorder, recurrent epi sode, moderate F33.1 and Panic disorder without agoraphobia F41.0 [facility] [address] [address] October, [facility] [address] [address] October, [facility] [address] [address] October, [facility] [address] [address] October, [facility] [address] [address] October, [facility] [address] [address] October, [facility] [address] [address] October, Major depressive disorder, recurrent epi sode, moderate F33.1 and Panic disorder without agoraphobia F41.0 [facility] [address] [address] Sep, Morbid obesity E66.01 and Lumbar neuriti s M54.16 [facility] [address] [address] Sep, Panic disorder without agoraphobia F41.0 and Major depressive disorder, recurrent episode, moderate F33.1 [facility] [address] [facility] [id number] [address] [place] [address] Sep, Gastroenteritis K52.9 ; Low back pain M54.5 ; Other chronic pain G89.29 and Morbid obesity E66.01 [facility] [address] [address] Sep, Major depressive disorder, recurrent epi sode, moderate F33.1 ; Panic disorder without agoraphobia F41.0 and Social phobia F40.10 [place] [address] [address] Sep, Panic disorder without agoraphobia F41.0 [place] [address] [address] Sep, Panic disorder without agoraphobia F41.0 [place] [address] [address] Aug, Panic disorder without agoraphobia F41.0 ; Major depressive disorder, recurrent episode, moderate F33.1 ; Social phobia F40.10 ; Psychotic disorder F29 ; Tardive dyskinesia G24.01 and Morbid obesity E66.01 [facility] [address] [address] Aug, Dysthymic disorder F34.1 and Psychotic d isorder F29 [place] [address] [address] Aug, Encounter for Medicare annual wellness e xam Z00.00 ; Morbid obesity E66.01 and Type 2 diabetes mellitus with diabetic neuropathic arthropathy E11.610 [place] [address] [place] [id number] Aug, Dysthymic disorder F34.1 and Psychotic d isorder F29 [place] [address] [place] [id number] Aug, Neuropathy G62.9 ; Onychomycosis B35.1 a nd Xerosis of skin L85.3 [place] [address] [address] Jul, [place] [address] [address] Jul, Mood disorder F39 ; Wheezing R06.2 ; Diego sanchez, initial encounter T17.308A and Coughing R05 [place] [address] [address] Jul, Low back pain M54.5 [facility] [address] [facility] [id number] [address] [place] [address] Jun, Flu-like symptoms R68.89 ; B MN 45.0-49.9, adult Z68.42 ; COPD exacerbation J44.1 and Acute bronchitis J20.9 [place] [address] [address] Jun, [place] [address] [address] May, [address] [address] May, Onychomycosis B35.1 and Type 2 diabetes mellitus with diabetic neuropathic arthropathy E11.610 [place] [address] [address] May, Low back pain M54.5 and Edema leg R60.0 [place] [address] [address] May, BMI 45.0-49.9, adult Z68.42 ; Well woman exam with routine gynecological exam Z01.419 and Breast cancer screening Z12.[address] [address] Apr, Arthritis M19.90 [place] [address] [address] 16 Apr, 2018 Arthritis M19.90 and Otalgia of both ear s H92.03 [place] [address] [address] Feb, [place] [address] [address] Feb, Low back pain M54.5 ; Other chronic pain G89.29 ; Exertional asthma J45.990 and Encounter for immunization Z23 [place] [address] [address] 21 Feb, 2018 Skin fissures R23.4 ; Neuropathy G62.9 a nd Onychomycosis B35.1 [place] [address] [address] 05 Feb, 2018 Dysthymic disorder F34.1 [place] [address] [address] 04 Feb, 2018 [place] [address] [address] Jan, [place] [address] [address] Jan, Abrasion of right elbow, initial encount er S50.311A ; Abrasion, right knee, initial encounter S80.211A and Sprain of other ligament of right ankle, initial encounter S93.491A [place] [address] [address] Jan, [facility] [address] [facility] [id number] [address] [place] [address] Jan, Injury of left ankle, initia l encounter S99.912A ; Fall down stairs, initial encounter W10.8XXA and BMI 45.0-49.9, adult Z68.42 [place] [address] [address] Jan, COPD exacerbation J44.1 [place] [address] [address] Jan, Dysfunction of both eustachian tubes H69 .83 [place] [address] [address] Jan, Bronchitis J40 and Acute suppurative giovana tis media of left ear without spontaneous rupture of tympanic membrane, recurrence not specified H66.002 [place] [address] [address] Jan, [place] [address] [address] Jan, Bronchitis J40 and BMI 40.0-44.9, adult Z68.41 [place] [address] [address] Jan, [place] [address] [address] Dec, Gastric pain R10.9 [place] [address] [address] Dec, [place] [address] [address] Dec, History of illicit drug use Z87.898 ; Ne uropathy G62.9 ; COPD (chronic obstructive pulmonary disease) with chronic bronchitis J44.9 and Acute pain of right knee M25.561 [place] [address] [address] Nov, [place] [address] [address] Nov, Onychomycosis B35.1 and Contusion of lef t foot, subsequent encounter S90.32XD [address] [address] Nov, COPD exacerbation J44.1 [place] [address] [address] Sep, [place] [address] [address] 30 Apr, 2018 Dysthymic disorder F34.1 ; Tobacco abuse Z72.0 ; Pain in right knee M25.561 ; Pain in left knee M25.562 ; Other chronic pain G89.29 and BMI 40.0- 44.9, adult Z68.[address] [address] Aug, Major depressive disorder, recurrent epi sode, moderate F33.1 and Social phobia F40.[address] [address] 14 Aug, 2017 Dysthymic disorder F34.1 ; Non-pressure chronic ulcer of left thigh, unspecified ulcer stage L97.129 ; Tobacco abuse Z72.0 ; Mild chronic obstructive pulmonary disease J44.9 and Forgetfulness R68.[address] [address] Aug, Onychomycosis B35.1 ; Fissure in skin of foot R23.4 and Foot callus L84 [facility] [place] [id number] [place] [address] Jul, Right medial knee pain M25.5 61 ; Upper respiratory tract infection, unspecified type J06.9 and BMI 40.0-44.9, adult Z68.41 [facility] [address] [address] 08 Jul, 2017 Nausea and vomiting, intract ability of vomiting not specified, unspecified vomiting type R11.2 ; Left ear pain H92.02 and Gastric pain R10.[address] [address] Apr, Encounter for immunization Z23 [address] [address] Apr, Onychomycosis B35.1 ; Xerosis of skin L8 5.3 ; Neuropathy G62.9 and Type 2 diabetes mellitus with diabetic neuropathic arthropathy E11.[address] [address] Jan, Onychomycosis B35.1 and Neuropathy G62.9 [facility] [address] [address] Dec, [facility] [address] [address] Dec, [facility] [address] [address] Nov, [facility] [address] [address] Aug, [facility] [address] [address] Aug, [facility] [address] [address] Jul, [facility] [address] [address] Jul, [facility] [address] [address] Jul, Decubitus ulcer of left thigh, stage 2 L 89.892 [place] [address] [address] 17 Jul, 2016 Decubitus ulcer of left thigh, stage 2 L 89.892 [place] [address] [address] 17 Jul, 2016 [facility] [address] [address] 15 Jul, 2016 Decubitus ulcer of left thigh, stage 2 L 89.892 [facility] [address] [address] 14 Jul, 2016 [facility] [address] [address] 13 Jul, 2016 Cellulitis of other specified site L03.8 18 ; Illicit drug use F19.90 and Decubitus ulcer of left thigh, stage 2 L89.892 [place] [address] [address] Jul, [place] [address] [address] Jul, Cellulitis of right breast N61.0 [place] [address] [address] Jun, [place] [address] [address] Jun, [place] [address] [address] Jun, Wheezing R06.2 and Arthralgia, unspecifi ed joint M25.50 [place] [address] [address] May, [place] [address] [address] May, [place] [address] [address] May, [place] [address] [address] May, Shortness of breath R06.02 [place] [address] [address] May, Onychomycosis B35.1 and Fissure in skin of foot R23.4 [place] [address] [address] Apr, [facility] [address] [facility] [id number] [address] [place] [address] Apr, Dizziness R42 [place] [address] [address] 14 Apr, 2016 Shortness of breath R06.02 ; Essential h ypertension I10 ; Dizziness R42 and On home oxygen therapy Z99.81 [place] [address] [place] [address] Apr, [facility] [address] [address] Apr, [facility] [address] [address] Apr, [facility] [address] [address] Apr, [facility] [address] [address] Apr, [facility] [address] [address] Apr, [facility] [address] [address] Apr, [facility] [address] [address] Mar, Mild chronic obstructive pulmonary disea se J44.9 [facility] [address] [address] Mar, [facility] [address] [address] Mar, Epigastric pain R10.13 ; Low back pain M 54.5 ; Other chronic pain G89.29 and Breast cancer screening Z12.39 [facility] [address] [address] Mar, [facility] [address] [address] Mar, [facility] [address] [address] Feb, [facility] [address] [address] Feb, [facility] [address] [address] Feb, 2016 Fissure in skin of foot R23.4 and Onycho mycosis B35.1 [facility] [address] [address] Jan, Agoraphobia F40.00 [place] [address] [address] Dec, Agoraphobia F40.00 [facility] [address] [address] Dec, Mild persistent asthma without complicat ion J45.30 ; Dysthymic disorder F34.1 and Upper respiratory tract infection, unspecified type J06.9 [place] [address] [address] Nov, Agoraphobia F40.00 [place] [address] [address] October, Agoraphobia F40.00 [place] [address] [address] Sep, Panic disorder without agoraphobia F41.0 ; Agoraphobia F40.00 and Dysthymic disorder F34.1 [place] [address] [address] Sep, Panic attacks F41.0 [place] [address] [address] Sep, [place] [address] [address] Sep, Panic disorder without agoraphobia F41.0 ; Varicose veins of both lower extremities I83.93 and Fatigue R53.83 [place] [address] [address] Sep, Fatigue R53.83 [facility] [address] [address] Sep, [facility] [address] [address] Aug, [place] [address] [address] Aug, [place] [address] [address] Aug, Type 2 diabetes mellitus with diabetic n europathic arthropathy E11.610 [place] [address] [address] Aug, Panic disorder without agoraphobia F41.0 ; Agoraphobia F40.00 and Dysthymic disorder F34.1 [place] [address] [address] Aug, Shortness of breath R06.02 ; Panic attac ks F41.0 ; COPD (chronic obstructive pulmonary disease) J44.9 ; Tobacco abuse Z72.0 ; Family history of diabetes mellitus Z83.3 and Weight gain R63.5 [place] [address] [address] Aug, [place] [address] [address] Jul, [place] [address] [address] Jun, Onychomycosis B35.1 ; Neuropathy G62.9 a nd Impaired circulation I99.[address] [address] Mar, Fissure in skin of foot R23.4 ; Onychomy cosis B35.1 and Type 2 diabetes mellitus with diabetic neuropathic arthropathy E11.610 [place] [address] [address] 18 Feb, 2015 Family history of coronary arteriosclero sis V17.3 [place] [address] [address] 15 Feb, 2015 Allergic rhinitis due to pollen 477.0 ; Unspecified breast screening V76.10 ; Anxiety 300.00 and Family history of coronary arteriosclerosis V17.3 [place] [address] [id number] [place] [address] Jan, [facility] [address] [id number] [place] [address] Dec, [facility] [address] [id number] [place] [address] Dec, Onychomycosis 110.1 and Skin fissures 70 9.8 [facility] [address] [id number] [place] [address] Sep, [facility] [address] [id number] [place] [address] Sep, [facility] [address] [id number] [place] [address] Aug, [facility] [address] [id number] [place] [address] Aug, [facility] [address] [place] [id number] [place] [address] Jul, [facility] [address] [id number] [place] [address] Jul, [facility] [address] [place] [id number] [place] [address] Jun, [facility] [address] [id number] [place] [address] Jun, [facility] [address] [place] [id number] [place] [address] Jun, [facility] [address] [id number] [place] [address] Jun, [facility] [address] [place] [id number] [place] [address] Jun, [facility] [address] [id number] [place] [address] May, [facility] [address] [place] [id number] [place] [address] May, [facility] [address] [id number] [place] [address] May, [facility] [address] [id number] [place] [address] May, [facility] [address] [id number] [place] [address] May, [facility] [address] [id number] [place] [address] May, [facility] [address] [id number] [place] [address] May, [facility] [address] [id number] [place] [address] May, [facility] [id number] [place] [address] Apr, [facility] [address] [facility] [id number] [place] [address] Apr, [facility] [id number] [place] [address] Apr, [facility] [id number] [place] [address] Apr, [facility] [id number] [place] [address] Apr, [facility] [id number] [place] [address] Apr, [facility] [id number] [place] [address] Apr, [facility] [id number] [place] [address] Apr, [facility] [id number] [place] [address] Apr, [facility] [id number] [place] [address] Apr, [facility] [facility] [address] [id number] [place] [address] Mar, [facility] [place] [facility] [address] [facility] [id number] [place] [address] Mar, 2013 [facility] [place] [facility] [address] [id number] [place] [address] Mar, 2013 [facility] [place] [facility] [address] [id number] [place] [address] Mar, 2013 [facility] [place] [facility] [address] [id number] [place] [address] Mar, 2013 [facility] [place] [facility] [address] [facility] [id number] [place] [address] Mar, 2013 [facility] [place] [facility] [address] [id number] [place] [address] Mar, [facility] [place] [facility] [address] [id number] [place] [address] Mar, 2013 [facility] [place] [facility] [address] [id number] [place] [address] Mar, [facility] [place] [facility] [address] [id number] [place] [address] Mar, 2013 [facility] [place] [facility] [address] [id number] [place] [address] Mar, [facility] [place] [facility] [address] [id number] [place] [address] Mar, 2013 [facility] [place] [facility] [address] [id number] [place] [address] Mar, [facility] [place] [facility] [address] [id number] [place] [address] Mar, 2013 [facility] [place] [facility] [address] [facility] [id number] [place] [address] Mar, [facility] [place] [facility] [address] [id number] [place] [address] Mar, 2013 [facility] [place] [facility] [address] [id number] [place] [address] Mar, 2013 [facility] [place] [facility] [address] [id number] [place] [address] 16 Mar, 2013 [facility] [place] [facility] [address] [facility] [id number] [place] [address] 16 Mar, 2013 [facility] [place] [facility] [address] [facility] [id number] [place] [address] 15 Mar, 2013 [facility] [place] [facility] [address] [id number] [place] [address] 14 Mar, 2013 [facility] [place] [facility] [address] [id number] [place] [address] 14 Mar, 2013 [facility] [place] [facility] [address] [id number] [place] [address] 14 Mar, 2013 [facility] [place] [facility] [address] [id number] [place] [address] 14 Mar, 2013 [facility] [place] [facility] [address] [id number] [place] [address] 09 Mar, 2013 [facility] [place] [facility] [address] [id number] [place] [address] 09 Mar, 2013 [facility] [place] [facility] [address] [id number] [place] [address] 09 Mar, 2013 [facility] [place] [facility] [address] [id number] [place] [address] 09 Mar, 2013 [facility] [place] [facility] [address] [id number] [place] [address] 30 Feb, 2013 [facility] [place] [facility] [address] [id number] [place] [address] 30 Sep, 2013 [facility] [place] [facility] [address] [id number] [place] [address] 30 Sep, 2013 [facility] [place] [facility] [address] [id number] [place] [address] 30 Sep, 2013 [facility] [place] [facility] [address] [id number] [place] [address] 26 Sep, 2013 [facility] [place] [facility] [address] [id number] [place] [address] 26 Sep, 2013 [facility] [place] [facility] [address] [id number] [place] [address] 09 Sep, 2013 [facility] [place] [facility] [address] [id number] [place] [address] Feb, 2013 [facility] [place] [facility] [address] [facility] [id number] [place] [address] Feb, 2013 [facility] [place] [facility] [address] [id number] [place] [address] Feb, 2013 [facility] [place] [facility] [address] [id number] [place] [address] Feb, 2013 [facility] [place] [facility] [address] [id number] [place] [address] Feb, 2013 [facility] [place] [facility] [address] [id number] [place] [address] Jan, [facility] [place] [facility] [address] [id number] [place] [address] Jan, [facility] [place] [facility] [address] [id number] [place] [address] Jan, [facility] [place] [facility] [address] [id number] [place] [address] Jan, [facility] [place] [facility] [address] [id number] [place] [address] Jan, [facility] [place] [facility] [address] [id number] [place] [address] Jan, [facility] [place] [facility] [address] [id number] [place] [address] Jan, [facility] [place] [facility] [address] [id number] [place] [address] Jan, [facility] [place] [facility] [address] [id number] [place] [address] Jan, [facility] [place] [facility] [address] [id number] [place] [address] Jan, [facility] [place] [facility] [address] [id number] [place] [address] Jan, [facility] [place] [facility] [address] [facility] [id number] [place] [address] Jan, [facility] [place] [facility] [address] [facility] [id number] [place] [address] Jan, [facility] [place] [facility] [address] [facility] [id number] [place] [address] Dec, [facility] [place] [facility] [address] [facility] [id number] [place] [address] Dec, [facility] [place] [facility] [address] [facility] [id number] [place] [address] Dec, [facility] [place] [facility] [address] [facility] [id number] [place] [address] Dec, [facility] [place] [facility] [address] [id number] [place] [address] Dec, [facility] [place] [facility] [address] [id number] [place] [address] Dec, [facility] [place] [facility] [address] [facility] [id number] [place] [address] Dec, [facility] [place] [facility] [address] [id number] [place] [address] Dec, [facility] [place] [facility] [address] [id number] [place] [address] Dec, [facility] [place] [facility] [address] [id number] [place] [address] Dec, [facility] [place] [facility] [address] [facility] [id number] [place] [address] Dec, [facility] [place] [facility] [address] [facility] [id number] [place] [address] Dec, [facility] [place] [facility] [address] [facility] [id number] [place] [address] Dec, [facility] [place] [facility] [address] [id number] [place] [address] Dec, [facility] [place] [facility] [address] [id number] [place] [address] Dec, 2013 [facility] [place] [facility] [address] [facility] [id number] [place] [address] Dec, [facility] [place] [facility] [address] [facility] [id number] [place] [address] Dec, [facility] [place] [facility] [address] [id number] [place] [address] Dec, [facility] [place] [facility] [address] [facility] [id number] [place] [address] Nov, [facility] [place] [facility] [address] [facility] [id number] [place] [address] Nov, [facility] [place] [facility] [address] [id number] [place] [address] Nov, [facility] [place] [facility] [address] [id number] [place] [address] Nov, [facility] [place] [facility] [address] [id number] [place] [address] Nov, [facility] [place] [facility] [address] [id number] [place] [address] Nov, [facility] [place] [facility] [address] [id number] [place] [address] Nov, [facility] [place] [facility] [address] [id number] [place] [address] Nov, [facility] [place] [facility] [address] [id number] [place] [address] Nov, [facility] [place] [facility] [address] [facility] [id number] [place] [address] Nov, [facility] [place] [facility] [address] [id number] [place] [address] Nov, [facility] [place] [facility] [address] [facility] [id number] [place] [address] Nov, [facility] [place] [facility] [address] [id number] [place] [address] Nov, [facility] [place] [facility] [address] [id number] [place] [address] Nov, [facility] [place] [facility] [address] [id number] [place] [address] Nov, [facility] [place] [facility] [address] [facility] [id number] [place] [address] Nov, [facility] [place] [facility] [address] [id number] [place] [address] Nov, [facility] [place] [facility] [address] [facility] [id number] [place] [address] Nov, [facility] [place] [facility] [address] [facility] [id number] [place] [address] Nov, [facility] [place] [facility] [address] [id number] [place] [address] Nov, [facility] [place] [facility] [address] [id number] [place] [address] October, [facility] [place] [facility] [address] [id number] [place] [address] October, [facility] [place] [facility] [address] [id number] [place] [address] October, [facility] [place] [facility] [address] [id number] [place] [address] October, [facility] [place] [facility] [address] [id number] [place] [address] Sep, [facility] [place] [facility] [address] [id number] [place] [address] Sep, [facility] [place] [facility] [address] [facility] [id number] [place] [address] Sep, [facility] [place] [facility] [address] [id number] [place] [address] Sep, [facility] [place] [facility] [address] [id number] [place] [address] Sep, [facility] [place] [facility] [address] [id number] [place] [address] Sep, [facility] [place] [facility] [address] [id number] [place] [address] Sep, [facility] [place] [facility] [address] [id number] [place] [address] Sep, [facility] [place] [facility] [address] [id number] [place] [address] Sep, [facility] [place] [facility] [address] [id number] [place] [address] Aug, [facility] [place] [facility] [address] [id number] [place] [address] Aug, [facility] [place] [facility] [address] [id number] [place] [address] Aug, [facility] [place] [facility] [address] [id number] [place] [address] Aug, [facility] [place] [facility] [address] [id number] [place] [address] Aug, [facility] [place] [facility] [address] [id number] [place] [address] Aug, [facility] [place] [facility] [address] [id number] [place] [address] Aug, [facility] [place] [facility] [address] [id number] [place] [address] Aug, [facility] [place] [facility] [address] [id number] [place] [address] Jul, [facility] [place] [facility] [address] [id number] [place] [address] Jul, [facility] [place] [facility] [address] [id number] [place] [address] Jun, [facility] [place] [facility] [address] [id number] [place] [address] Jun, [facility] [place] [facility] [address] [id number] [place] [address] Jun, [facility] [place] [facility] [address] [id number] [place] [address] Jun, [facility] [place] [facility] [address] [facility] [id number] [place] [address] Jun, [facility] [place] [facility] [address] [id number] [place] [address] Jun, [facility] [place] [facility] [address] [id number] [place] [address] Jun, [facility] [place] [facility] [address] [id number] [place] [address] Jun, [facility] [place] [facility] [address] [id number] [place] [address] Jun, [facility] [place] [facility] [address] [id number] [place] [address] Jun, [facility] [place] [facility] [address] [id number] [place] [address] Jun, [facility] [place] [facility] [address] [id number] [place] [address] Jun, [facility] [place] [facility] [address] [id number] [place] [address] May, [facility] [place] [facility] [address] [id number] [place] [address] May, [facility] [place] [facility] [address] [id number] [place] [address] May, [facility] [place] [facility] [address] [id number] [place] [address] May, [facility] [place] [facility] [address] [id number] [place] [address] May, [facility] [place] [facility] [address] [id number] [place] [address] May, [facility] [place] [facility] [address] [id number] [place] [address] May, [facility] [place] [facility] [address] [id number] [place] [address] May, [facility] [place] [facility] [address] [id number] [place] [address] May, [facility] [place] [facility] [address] [id number] [place] [address] May, [facility] [place] [facility] [address] [id number] [place] [address] May, [facility] [place] [facility] [address] [id number] [place] [address] May, [facility] [place] [facility] [address] [id number] [place] [address] May, [facility] [place] [facility] [address] [id number] [place] [address] Apr, [facility] [place] [facility] [address] [id number] [place] [address] Apr, [facility] [place] [facility] [address] [id number] [place] [address] Mar, [facility] [place] [facility] [address] [id number] [place] [address] Mar, [facility] [place] [facility] [address] [id number] [place] [address] 24 Feb, 2013 [facility] [place] [facility] [address] [id number] [place] [address] Feb, [facility] [place] [facility] [address] [id number] [place] [address] Feb, [facility] [place] [facility] [address] [id number] [place] [address] Feb, [facility] [place] [facility] [address] [id number] [place] [address] Jan, [facility] [place] [facility] [address] [id number] [place] [address] Jan, [facility] [place] [facility] [address] [id number] [place] [address] Jan, [facility] [place] [facility] [address] [id number] [place] [address] Jan, [facility] [place] [facility] [address] [id number] [place] [address] Jan, [facility] [place] [facility] [address] [id number] [place] [address] Jan, [facility] [place] [facility] [address] [id number] [place] [address] Dec, [facility] [place] [facility] [address] [id number] [place] [address] Dec, [facility] [place] [facility] [address] [id number] [place] [address] Dec, [facility] [place] [facility] [address] [id number] [place] [address] Dec, [facility] [place] [facility] [address] [id number] [place] [address] Nov, [facility] [place] [facility] [address] [id number] [place] [address] October, [facility] [place] [facility] [address] [id number] [place] [address] October, [facility] [place] [facility] [address] [id number] [place] [address] October, [facility] [place] [facility] [address] [id number] [place] [address] Sep, [facility] [place] [facility] [address] [id number] [place] [address] Sep, [facility] [place] [facility] [address] [id number] [place] [address] Jun, [facility] [place] [facility] [address] [id number] [place] [address] Jun, [facility] [place] [facility] [address] [id number] [place] [address] Jun, [facility] [place] [facility] [address] [id number] [place] [address] Apr, [facility] [place] [facility] [address] [id number] [place] [address] Apr, [facility] [place] [facility] [address] [id number] [place] [address] Apr, [facility] [place] [facility] [address] [id number] [place] [address] Apr, [facility] [place] [facility] [address] [id number] [place] [address] Mar, [facility] [place] [facility] [address] [id number] [place] [address] Mar, [facility] [place] [facility] [address] [id number] [place] [address] Mar, [facility] [place] [facility] [address] [id number] [place] [address] Mar, [facility] [place] [facility] [address] [id number] [place] [address] Feb, [facility] [place] [facility] [address] [id number] [place] [address] Feb, [facility] [place] [facility] [address] [id number] [place] [address] Feb, [facility] [place] [facility] [address] [id number] [place] [address] Jan, [facility] [place] [facility] [address] [id number] [place] [address] Jan, [facility] [place] [facility] [address] [id number] [place] [address] Jan, [facility] [place] [facility] [address] [id number] [place] [address] Jan, [facility] [place] [facility] [address] [id number] [place] [address] Dec, [facility] [place] [facility] [address] [id number] [place] [address] Dec, [facility] [place] [facility] [address] [id number] [place] [address] Nov, [facility] [place] [facility] [address] [id number] [place] [address] Nov, [facility] [place] [facility] [address] [id number] [place] [address] October, [facility] [place] [facility] [address] [id number] [place] [address] October, [facility] [place] [facility] [address] [id number] [place] [address] October, [facility] [place] [facility] [id number] [place] [address] Sep, [facility] [id number] [place] [address] Sep, [facility] [id number] [place] [address] Sep, [facility] [id number] [place] [address] Aug, [facility] [id number] [place] [address] Aug, [facility] [id number] [place] [address] Aug, [facility] [id number] [place] [address] Aug, [facility] [id number] [place] [address] Aug, [facility] [id number] [place] [address] Jul, [facility] [id number] [place] [address] 16 Jul, 2011 [facility] [id number] [place] [address] 13 Jul, 2011 [facility] [id number] [place] [address] 09 Jul, 2011 [facility] [id number] [place] [address] 07 Jul, 2011 [facility] [id number] [place] [address] Jul, [facility] [id number] [place] [address] Jul, [facility] [id number] [place] [address] Jul, [facility] [id number] [place] [address] Jun, [facility] [id number] [place] [address] Jun, [facility] [id number] [place] [address] May, [facility] [id number] [place] [address] May, [facility] [id number] [place] [address] May, [facility] [id number] [place] [address] May, [facility] [id number] [place] [address] Apr, [facility] [id number] [place] [address] Apr, [facility] [id number] [place] [address] Apr, [facility] [id number] [place] [address] Mar, [facility] [id number] [place] [address] Mar, [facility] [id number] [place] [address] Mar, [facility] [id number] [place] [address] Mar, [facility] [id number] [place] [address] Dec, [facility] [id number] [place] [address] October, [facility] [id number] [place] [address] May, [facility] [id number] [place] [address] May, [facility] [id number] [place] [address] May, [facility] [id number] [place] [address] May, [facility] [id number] [place] [address] Mar, [facility] [id number] [place] [address] Mar, [facility] [id number] [place] [address] May, [facility] [id number] [place] [address] May, [facility] [id number] [place] [address] May, [facility] [id number] [place] [address] May, [facility] [id number] [place] [address] Apr, [facility] [id number] [place] [address] Apr, [facility] [id number] [place] [address] October, IMMUNIZATIONS No Known Immunizations SOCIAL HISTORY [...]
--- OUTSIDE RECORDS SUMMARY | 2020-01-13 11:56 | XMS REPORT ---
Author Author Monique ANAYA Organization [facility] Address [address] [place] [address] Care Team Providers Care Silver Solution Mixer Name Role Phone NANCY ANAYA Unavailable PROBLEMS Type Condition ICD9-CM Code ABX79-UH Code Onset Dates Condition S tatus SNOMED Code Problem Panic disorder without agoraphobia F41.0 Active 30025708 Problem Agoraphobia F40.00 Active 70883172 Problem Fatigue R53.83 Active 68763752 Problem Varicose veins of both lower extremities I83.93 Active 23475897 Problem Mild chronic obstructive pulmonary disease J44.9 Active 661049447 Problem Mild persistent asthma without complication J45.30 Active 256083580 Problem Essential hypertension I10 Active 86846950 Problem Snoring R06.83 Active 16516578 Problem On home oxygen therapy Z99.81 Active 365948039759 Problem MRSA (methicillin resistant staph aureus) culture positive Z22.322 Active 075723615 Problem Major depressive disorder, recurrent episode, moderate F33.1 Active 813696304 Problem 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 Active 046328261 Problem Arthritis M19.90 Active 8313196 Problem Major depressive disorder in full remission F32.5 Active 84661749 Problem Social phobia F40.10 Active 297363 02 Problem Impaired circulation I99.9 Active 48119895 Problem Slow transit constipation K59.01 Acti ve 66680065 Problem Neuropathy G62.9 Active 771149909 Problem History of illicit drug use Z87.898 Ac tive 328073259 Problem Dysthymic disorder F34.1 Active 7 3846345 Problem Mood disorder F39 Active 133747 05 Problem Psychotic disorder F29 Active 6 4304149 Problem Hypertension, benign I10 Active 54844123 Problem Onychomycosis B35.1 Active 204911 008 ALLERGIES No Information ENCOUNTERS Encounter Location Date Diagnosis [facility] [address] [address] Aug, [place] [address] [address] Jul, [place] [address] [address] Jul, [place] [address] [address] May, Morbid obesity E66.01 [place] [address] [address] May, Encounter for immunization Z23 [place] [address] [address] May, Major depressive disorder, recurrent epi sode, moderate F33.1 ; Panic disorder without agoraphobia F41.0 and Morbid obesity E66.01 [place] [address] [address] May, Major depressive disorder in full remiss ion F32.5 and Panic disorder without agoraphobia F41.0 [place] [address] [address] Apr, Morbid obesity E66.01 [place] [address] [address] Apr, Slow transit constipation K59.01 and Lois lulitis of left lower extremity L03.116 [place] [address] [address] Apr, Morbid obesity E66.01 [place] [address] [address] Apr, [place] [address] [address] Apr, Major depressive disorder, recurrent epi sode, moderate F33.1 and Panic disorder without agoraphobia F41.0 [place] [address] [address] Mar, Viral upper respiratory tract infection J06.9 [place] [address] [address] 10 Mar, 2019 Bronchitis J40 and Encounter for immuniz ation Z23 [place] [address] [address] Mar, Morbid obesity E66.01 [place] [address] [address] Feb, Major depressive disorder, recurrent epi sode, moderate F33.1 and Panic disorder without agoraphobia F41.0 [place] [address] [address] Feb, Morbid obesity E66.01 [place] [address] [address] 06 Feb, 2019 Onychomycosis B35.1 ; Type 2 diabetes me llitus with diabetic neuropathic arthropathy E11.610 and Xerosis of skin L85.3 [place] [address] [address] 04 Feb, 2019 Major depressive disorder, recurrent epi sode, moderate F33.1 ; Panic disorder without agoraphobia F41.0 and Morbid obesity E66.01 [place] [address] [address] Jan, Major depressive disorder in full remiss ion F32.5 and Panic disorder without agoraphobia F41.0 [place] [address] [address] Jan, Pneumonia of both lower lobes due to inf ectious organism J18.1 and Morbid obesity E66.01 [place] [address] [address] Jan, [address] [address] Jan, Major depressive disorder in full remiss ion F32.5 and Panic disorder without agoraphobia F41.0 [place] [address] [address] Jan, [place] [address] [address] Jan, Major depressive disorder, recurrent epi sode, moderate F33.1 ; Panic disorder without agoraphobia F41.0 and Morbid obesity E66.01 [place] [address] [address] Dec, Bilious vomiting with nausea R11.14 ; Co ughing R05 and Choking, subsequent encounter T17.308D [place] [address] [address] Dec, Morbid obesity E66.01 [place] [address] [address] Dec, Major depressive disorder, recurrent epi sode, moderate F33.1 and Panic disorder without agoraphobia F41.0 [place] [address] [address] Dec, [place] [address] [address] Dec, Major depressive disorder, recurrent epi sode, moderate F33.1 [place] [address] [address] Nov, Major depressive disorder, recurrent epi sode, moderate F33.1 ; Panic disorder without agoraphobia F41.0 and Morbid obesity E66.01 [place] [address] [address] Nov, Morbid obesity E66.01 [place] [address] [address] Nov, Major depressive disorder, recurrent epi sode, moderate F33.1 and Panic disorder without agoraphobia F41.0 [facility] [address] [facility] [id number] [address] [place] [address] Nov, Allergic reaction, initial e ncounter T78.40XA and Morbid obesity E66.[address] [address] Nov, [place] [address] [address] Nov, Morbid obesity E66.01 ; Swallowing probl em R13.10 and Hypertension, benign I10 [facility] [place] [id number] [address] [place] [address] 07 Nov, 2018 Morbid obesity E66.01 ; COPD exacerbation J44.1 and Non- recurrent acute suppurative otitis media of left ear without spontaneous rupture of tympanic membrane H66.[address] [address] Nov, Onychomycosis B35.1 ; Neuropathy G62.9 a nd Fissure in skin of foot R23.[address] [address] October, Major depressive disorder, recurrent epi sode, moderate F33.1 ; Panic disorder without agoraphobia F41.0 and Morbid obesity E66.01 [facility] [place] [id number] [address] [place] [address] October, Viral upper respiratory trac t infection J06.9 [place] [address] [address] October, [address] [address] October, Major depressive disorder, recurrent epi sode, moderate F33.1 and Panic disorder without agoraphobia F41.0 [place] [address] [address] October, [place] [address] [address] October, [place] [id number] [place] [address] October, [facility] [address] [address] October, [facility] [address] [address] October, [facility] [address] [address] October, [facility] [address] [address] October, Major depressive disorder, recurrent epi sode, moderate F33.1 and Panic disorder without agoraphobia F41.0 [place] [address] [address] Sep, Morbid obesity E66.01 and Lumbar neuriti s M54.16 [place] [address] [address] Sep, Panic disorder without agoraphobia F41.0 and Major depressive disorder, recurrent episode, moderate F33.1 [facility] IN [facility] [address] [facility] [id number] [address] [place] [address] Sep, Gastroenteritis K52.9 ; Low back pain M54.5 ; Other chronic pain G89.29 and Morbid obesity E66.01 [facility] [address] [address] Sep, Major depressive disorder, recurrent epi sode, moderate F33.1 ; Panic disorder without agoraphobia F41.0 and Social phobia F40.10 [facility] [address] [address] Sep, Panic disorder without agoraphobia F41.0 [facility] [address] [address] Sep, Panic disorder without agoraphobia F41.0 [facility] [address] [address] Aug, Panic disorder without agoraphobia F41.0 ; Major depressive disorder, recurrent episode, moderate F33.1 ; Social phobia F40.10 ; Psychotic disorder F29 ; Tardive dyskinesia G24.01 and Morbid obesity E66.01 [place] [address] [address] Aug, Dysthymic disorder F34.1 and Psychotic d isorder F29 [place] [address] [address] Aug, Encounter for Medicare annual wellness e xam Z00.00 ; Morbid obesity E66.01 and 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.610 [place] [address] [address] Aug, Dysthymic disorder F34.1 and Psychotic d isorder F29 [place] [address] [address] Aug, Neuropathy G62.9 ; Onychomycosis B35.1 a nd Xerosis of skin L85.3 [place] [address] [address] Jul, [address] [address] Jul, Mood disorder F39 ; Wheezing R06.2 ; Diego sanchez, initial encounter T17.308A and Coughing R05 [place] [address] [address] Jul, Low back pain M54.5 [facility] [address] [facility] [id number] [address] [place] [address] Jun, Flu-like symptoms R68.89 ; B MA 45.0-49.9, adult Z68.42 ; COPD exacerbation J44.1 and Acute bronchitis J20.9 [place] [address] [address] Jun, [place] [address] [address] May, [place] [address] [address] May, Onychomycosis B35.1 and Type 2 diabetes mellitus with diabetic neuropathic arthropathy E11.610 [place] [address] [address] May, Low back pain M54.5 and Edema leg R60.0 [place] [address] [address] May, BMI 45.0-49.9, adult Z68.42 ; Well woman exam with routine gynecological exam Z01.419 and Breast cancer screening Z12.31 [place] [address] [address] 19 Apr, 2018 Arthritis M19.90 [place] [address] [address] 16 Apr, 2018 Arthritis M19.90 and Otalgia of both ear s H92.03 [place] [address] [address] Feb, [place] [address] [address] Feb, Low back pain M54.5 ; Other chronic pain G89.29 ; Exertional asthma J45.990 and Encounter for immunization Z23 [place] [address] [address] Feb, Skin fissures R23.4 ; Neuropathy G62.9 a nd Onychomycosis B35.1 [place] [address] [address] 05 Feb, 2018 Dysthymic disorder F34.1 [place] [address] [address] Feb, [place] [address] [address] Jan, [facility] [address] [address] Jan, Abrasion of right elbow, initial encount er S50.311A ; Abrasion, right knee, initial encounter S80.211A and Sprain of other ligament of right ankle, initial encounter S93.491A [facility] [address] [address] Jan, [facility] [address] [facility] [id number] [address] [place] [address] Jan, Injury of left ankle, initia l encounter S99.912A ; Fall down stairs, initial encounter W10.8XXA and BMI 45.0-49.9, adult Z68.42 [place] [address] [address] Jan, COPD exacerbation J44.1 [place] [address] [address] Jan, Dysfunction of both eustachian tubes H69 .83 [place] [address] [address] 08 Jan, 2018 Bronchitis J40 and Acute suppurative giovana tis media of left ear without spontaneous rupture of tympanic membrane, recurrence not specified H66.002 [facility] [address] [address] Jan, [place] [address] [address] Jan, Bronchitis J40 and BMI 40.0-44.9, adult Z68.41 [place] [address] [address] Jan, [place] [address] [address] Dec, Gastric pain R10.9 [place] [address] [address] Dec, [place] [address] [address] Dec, History of illicit drug use Z87.898 ; Ne uropathy G62.9 ; COPD (chronic obstructive pulmonary disease) with chronic bronchitis J44.9 and Acute pain of right knee M25.561 [place] [address] [address] Nov, [place] [address] [address] Nov, Onychomycosis B35.1 and Contusion of lef t foot, subsequent encounter S90.32XD [address] [address] Nov, COPD exacerbation J44.1 [place] [address] [address] Sep, [place] [address] [address] Sep, Dysthymic disorder F34.1 ; Tobacco abuse Z72.0 ; Pain in right knee M25.561 ; Pain in left knee M25.562 ; Other chronic pain G89.29 and BMI 40.0- 44.9, adult Z68.[address] [address] Aug, Major depressive disorder, recurrent epi sode, moderate F33.1 and Social phobia F40.[address] [address] Aug, Dysthymic disorder F34.1 ; Non-pressure chronic ulcer of left thigh, unspecified ulcer stage L97.129 ; Tobacco abuse Z72.0 ; Mild chronic obstructive pulmonary disease J44.9 and Forgetfulness R68.89 [place] [address] [address] 09 Aug, 2017 Onychomycosis B35.1 ; Fissure in skin of foot R23.4 and Foot callus L84 [facility] [address] [facility] [id number] [address] [address] Jul, Right medial knee pain M25.5 61 ; Upper respiratory tract infection, unspecified type J06.9 and BMI 40.0-44.9, adult Z68.41 [facility] [address] [facility] [id number] [place] [address] 08 Jul, 2017 Nausea and vomiting, intract ability of vomiting not specified, unspecified vomiting type R11.2 ; Left ear pain H92.02 and Gastric pain R10.9 [place] [address] [address] Apr, Encounter for immunization Z23 [place] [address] [address] Apr, Onychomycosis B35.1 ; Xerosis of skin L8 5.3 ; Neuropathy G62.9 and 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 [place] [address] [address] Jan, Onychomycosis B35.1 and Neuropathy G62.9 [place] [address] [address] Dec, [place] [address] [address] Dec, [place] [address] [address] Nov, [place] [address] [address] Aug, [place] [address] [address] Aug, [place] [address] [address] Jul, [place] [address] [address] Jul, [place] [address] [address] 17 Jul, 2016 Decubitus ulcer of left thigh, stage 2 L 89.892 [facility] [address] [address] 17 Jul, 2016 Decubitus ulcer of left thigh, stage 2 L 89.892 [facility] [address] [address] 17 Jul, 2016 [facility] [address] [address] 15 Jul, 2016 Decubitus ulcer of left thigh, stage 2 L 89.892 [facility] [address] [address] 14 Jul, 2016 [facility] [address] [address] 13 Jul, 2016 Cellulitis of other specified site L03.8 18 ; Illicit drug use F19.90 and Decubitus ulcer of left thigh, stage 2 L89.892 [facility] [address] [address] 08 Jul, 2016 [place] [address] [address] 06 Jul, 2016 Cellulitis of right breast N61.0 [facility] [address] [address] Jun, [facility] [address] [address] Jun, [facility] [address] [address] Jun, Wheezing R06.2 and Arthralgia, unspecifi ed joint M25.50 [facility] [address] [address] May, [facility] [address] [address] May, [facility] [address] [address] May, [facility] [address] [address] 05 May, 2016 Shortness of breath R06.02 [facility] [address] [address] 02 May, 2016 Onychomycosis B35.1 and Fissure in skin of foot R23.4 [facility] [address] [address] 28 Apr, 2016 [facility] [address] [facility] [id number] [address] [place] [address] 18 Apr, 2016 Dizziness R42 [place] [address] [address] 14 Apr, 2016 Shortness of breath R06.02 ; Essential h ypertension I10 ; Dizziness R42 and On home oxygen therapy Z99.81 [facility] [address] [address] Apr, [place] [address] [address] 08 Apr, 2016 [facility] [address] [address] 07 Apr, 2016 [place] [address] [address] Apr, [facility] [address] [address] Apr, [facility] [address] [address] Apr, [facility] [address] [address] Apr, [facility] [address] [address] Mar, Mild chronic obstructive pulmonary disea se J44.9 [facility] [address] [address] Mar, [place] [address] [address] Mar, Epigastric pain R10.13 ; Low back pain M 54.5 ; Other chronic pain G89.29 and Breast cancer screening Z12.39 [place] [address] [address] Mar, [facility] [address] [address] Mar, [place] [address] [address] Feb, [place] [address] [address] Feb, [place] [address] [address] Feb, Fissure in skin of foot R23.4 and Onycho mycosis B35.1 [place] [address] [address] Jan, Agoraphobia F40.00 [place] [address] [address] Dec, Agoraphobia F40.00 [place] [address] [address] Dec, Mild persistent asthma without complicat ion J45.30 ; Dysthymic disorder F34.1 and Upper respiratory tract infection, unspecified type J06.9 [place] [address] [address] Nov, Agoraphobia F40.00 [place] [address] [address] October, Agoraphobia F40.00 [place] [address] [address] Sep, Panic disorder without agoraphobia F41.0 ; Agoraphobia F40.00 and Dysthymic disorder F34.1 [place] [address] [address] Sep, Panic attacks F41.0 [place] [address] [address] Sep, [place] [address] [address] Sep, Panic disorder without agoraphobia F41.0 ; Varicose veins of both lower extremities I83.93 and Fatigue R53.83 [place] [address] [address] Sep, Fatigue R53.83 [place] [address] [address] Sep, [place] [address] [address] Aug, [place] [address] [address] Aug, [place] [address] [address] Aug, Type 2 diabetes mellitus with diabetic n europathic arthropathy E11.610 [place] [address] [address] Aug, Panic disorder without agoraphobia F41.0 ; Agoraphobia F40.00 and Dysthymic disorder F34.1 [place] [address] [address] Aug, Shortness of breath R06.02 ; Panic attac ks F41.0 ; COPD (chronic obstructive pulmonary disease) J44.9 ; Tobacco abuse Z72.0 ; Family history of diabetes mellitus Z83.3 and Weight gain R63.5 [place] [address] [address] Aug, [place] [address] [address] Jul, [facility] [address] [address] Jun, Onychomycosis B35.1 ; Neuropathy G62.9 a nd Impaired circulation I99.9 [facility] [address] [address] Mar, Fissure in skin of foot R23.4 ; Onychomy cosis B35.1 and 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 [place] [address] [address] 18 Feb, 2015 Family history of coronary arteriosclero sis V17.3 [place] [address] [address] 15 Feb, 2015 Allergic rhinitis due to pollen 477.0 ; Unspecified breast screening V76.10 ; Anxiety 300.00 and Family history of coronary arteriosclerosis V17.3 [facility] [address] [address] Jan, [facility] [address] [address] Dec, [place] [address] [address] Dec, Onychomycosis 110.1 and Skin fissures 70 9.8 [facility] [address] [address] Sep, [facility] [address] [address] Sep, [facility] [address] [address] Aug, [facility] [address] [address] Aug, [facility] [address] [address] Jul, [facility] [address] [facility] [id number] [place] [address] Jul, [facility] [address] [id number] [place] [address] Jun, [facility] [address] [id number] [place] [address] Jun, [facility] [address] [id number] [place] [address] Jun, [facility] [address] [id number] [place] [address] Jun, [facility] [address] [id number] [place] [address] Jun, [facility] [address] [id number] [place] [address] May, [facility] [address] [id number] [place] [address] May, [facility] [address] [id number] [place] [address] May, [facility] [address] [id number] [place] [address] May, [facility] [address] [id number] [place] [address] May, [facility] [address] [id number] [place] [address] May, [facility] [address] [id number] [place] [address] May, [facility] [address] [id number] [place] [address] May, [facility] [address] [id number] [place] [address] Apr, [facility] [address] [id number] [place] [address] Apr, [facility] [address] [id number] [place] [address] Apr, [facility] [address] [id number] [place] [address] Apr, [facility] [address] [id number] [place] [address] Apr, [facility] [address] [id number] [place] [address] Apr, [facility] [address] [id number] [place] [address] Apr, [facility] [address] [id number] [place] [address] Apr, [facility] [address] [id number] [place] [address] Apr, [facility] [address] [id number] [place] [address] Apr, [facility] [address] [id number] [place] [address] Mar, [facility] [address] [id number] [place] [address] Mar, [facility] [address] [id number] [place] [address] Mar, [facility] [address] [id number] [place] [address] Mar, [facility] [address] [id number] [place] [address] Mar, [facility] [address] [id number] [place] [address] Mar, [facility] [place] [facility] [id number] [place] [address] Mar, [facility] [place] [facility] [address] [id number] [place] [address] Mar, [facility] [place] [facility] [address] [id number] [place] [address] Mar, [facility] [place] [facility] [address] [facility] [id number] [place] [address] 23 Mar, 2013 [facility] [place] [facility] [address] [facility] [id number] [place] [address] 23 Mar, 2013 [facility] [place] [facility] [address] [facility] [id number] [place] [address] Mar, 2013 [facility] [place] [facility] [address] [id number] [place] [address] 22 Mar, 2014 [facility] [place] [facility] [address] [facility] [id number] [place] [address] Mar, 2013 [facility] [place] [facility] [address] [facility] [id number] [place] [address] 22 Mar, 2013 [facility] [place] [facility] [address] [id number] [place] [address] 20 Mar, 2013 [facility] [place] [facility] [address] [id number] [place] [address] 20 Mar, 2013 [facility] [place] [facility] [address] [id number] [place] [address] 16 Mar, 2013 [facility] [place] [facility] [address] [id number] [place] [address] 16 Mar, 2013 [facility] [place] [facility] [address] [id number] [place] [address] 15 Mar, 2013 [facility] [place] [facility] [address] [id number] [place] [address] 14 Mar, 2013 [facility] [place] [facility] [address] [id number] [place] [address] 14 Mar, 2013 [facility] [place] [facility] [address] [facility] [id number] [place] [address] 14 Mar, 2013 [facility] [place] [facility] [address] [id number] [place] [address] 14 Mar, 2013 [facility] [place] [facility] [address] [id number] [place] [address] 09 Mar, 2013 [facility] [place] [facility] [address] [id number] [place] [address] Mar, 2013 [facility] [place] [facility] [address] [facility] [id number] [place] [address] Mar, 2013 [facility] [place] [facility] [address] [facility] [id number] [place] [address] Mar, 2013 [facility] [place] [facility] [address] [id number] [place] [address] Feb, 2013 [facility] [place] [facility] [address] [id number] [place] [address] Feb, 2013 [facility] [place] [facility] [address] [facility] [id number] [place] [address] Feb, 2013 [facility] [place] [facility] [address] [id number] [place] [address] Feb, 2013 [facility] [place] [facility] [address] [id number] [place] [address] Feb, 2013 [facility] [place] [facility] [address] [id number] [place] [address] Feb, 2013 [facility] [place] [facility] [address] [id number] [place] [address] Feb, 2013 [facility] [place] [facility] [address] [id number] [place] [address] Feb, 2013 [facility] [place] [facility] [address] [id number] [place] [address] Feb, 2013 [facility] [place] [facility] [address] [id number] [place] [address] Feb, 2013 [facility] [place] [facility] [address] [id number] [place] [address] Feb, 2013 [facility] [place] [facility] [address] [id number] [place] [address] Feb, 2013 [facility] [place] [facility] [address] [id number] [place] [address] Jan, [facility] [place] [facility] [address] [id number] [place] [address] Jan, [facility] [place] [facility] [address] [id number] [place] [address] Jan, [facility] [place] [facility] [address] [id number] [facility] [place] [address] Jan, [facility] [place] [facility] [address] [facility] [id number] [place] [address] Jan, [facility] [place] [facility] [address] [id number] [place] [address] Jan, [facility] [place] [facility] [address] [id number] [place] [address] Jan, [facility] [place] [facility] [address] [id number] [place] [address] Jan, [facility] [place] [facility] [address] [id number] [place] [address] Jan, [facility] [place] [facility] [address] [id number] [place] [address] Jan, [facility] [place] [facility] [address] [id number] [place] [address] Jan, [facility] [place] [facility] [address] [id number] [place] [address] Jan, [facility] [place] [facility] [address] [id number] [place] [address] Jan, [facility] [place] [facility] [address] [id number] [place] [address] Dec, [facility] [place] [facility] [address] [id number] [place] [address] Dec, [facility] [place] [facility] [address] [id number] [place] [address] Dec, [facility] [place] [facility] [address] [id number] [place] [address] Dec, [facility] [place] [facility] [address] [id number] [place] [address] Dec, [facility] [place] [facility] [address] [id number] [place] [address] Dec, [facility] [place] [facility] [address] [id number] [place] [address] Dec, 2013 [facility] [place] [facility] [address] [facility] [id number] [place] [address] Dec, 2013 [facility] [place] [facility] [address] [facility] [id number] [place] [address] Dec, 2013 [facility] [place] [facility] [address] [id number] [place] [address] Dec, 2013 [facility] [place] [facility] [address] [facility] [id number] [place] [address] Dec, 2013 [facility] [place] [facility] [address] [facility] [id number] [place] [address] Dec, 2013 [facility] [place] [facility] [address] [id number] [place] [address] Dec, 2013 [facility] [place] [facility] [address] [id number] [place] [address] Dec, 2013 [facility] [place] [facility] [address] [id number] [place] [address] Dec, 2013 [facility] [place] [facility] [address] [id number] [place] [address] Dec, 2013 [facility] [place] [facility] [address] [id number] [place] [address] Dec, [facility] [place] [facility] [address] [id number] [place] [address] Dec, 2013 [facility] [place] [facility] [address] [id number] [place] [address] Nov, [facility] [place] [facility] [address] [facility] [id number] [place] [address] Nov, [facility] [place] [facility] [address] [id number] [place] [address] Nov, [facility] [place] [facility] [address] [id number] [place] [address] Nov, [facility] [place] [facility] [address] [id number] [place] [address] Nov, [facility] [place] [facility] [address] [facility] [id number] [place] [address] Nov, [facility] [place] [facility] [address] [facility] [id number] [facility] [place] [address] Nov, [facility] [place] [facility] [address] [facility] [id number] [place] [address] Nov, [facility] [place] [facility] [address] [facility] [id number] [facility] [place] [address] Nov, [facility] [place] [facility] [address] [facility] [id number] [facility] [place] [address] Nov, [facility] [place] [facility] [address] [facility] [id number] [place] [address] Nov, [facility] [place] [facility] [address] [id number] [place] [address] Nov, [facility] [place] [facility] [address] [id number] [place] [address] Nov, [facility] [place] [facility] [address] [facility] [id number] [place] [address] Nov, [facility] [place] [facility] [address] [id number] [place] [address] Nov, [facility] [place] [facility] [address] [id number] [place] [address] Nov, [facility] [place] [facility] [address] [id number] [place] [address] Nov, [facility] [place] [facility] [address] [facility] [id number] [place] [address] Nov, [facility] [place] [facility] [address] [facility] [id number] [place] [address] Nov, [facility] [place] [facility] [address] [facility] [id number] [place] [address] Nov, [facility] [place] [facility] [address] [id number] [place] [address] October, [facility] [place] [facility] [address] [id number] [place] [address] October, [facility] [place] [facility] [address] [id number] [place] [address] October, [facility] [place] [facility] [address] [id number] [place] [address] October, [facility] [place] [facility] [address] [id number] [place] [address] Sep, [facility] [place] [facility] [address] [id number] [place] [address] Sep, [facility] [place] [facility] [address] [id number] [place] [address] Sep, [facility] [place] [facility] [address] [id number] [place] [address] Sep, [facility] [place] [facility] [address] [id number] [place] [address] Sep, [facility] [place] [facility] [address] [id number] [place] [address] Sep, [facility] [place] [facility] [address] [id number] [place] [address] Sep, [facility] [place] [facility] [address] [id number] [place] [address] Sep, [facility] [place] [facility] [address] [id number] [place] [address] Sep, [facility] [place] [facility] [address] [id number] [place] [address] Aug, [facility] [place] [facility] [address] [id number] [place] [address] Aug, [facility] [place] [facility] [address] [id number] [place] [address] Aug, [facility] [place] [facility] [address] [id number] [place] [address] Aug, [facility] [place] [facility] [address] [id number] [place] [address] Aug, [facility] [place] [facility] [address] [id number] [place] [address] Aug, [facility] [place] [facility] [address] [id number] [place] [address] Aug, [facility] [place] [facility] [address] [id number] [place] [address] Aug, [facility] [place] [facility] [address] [id number] [place] [address] Jul, [facility] [place] [facility] [address] [id number] [place] [address] Jul, [facility] [place] [facility] [address] [id number] [place] [address] Jun, [facility] [place] [facility] [address] [id number] [place] [address] Jun, [facility] [place] [facility] [address] [id number] [place] [address] Jun, [facility] [place] [facility] [address] [id number] [place] [address] Jun, [facility] [place] [facility] [address] [id number] [place] [address] Jun, [facility] [place] [facility] [address] [id number] [place] [address] Jun, [facility] [place] [facility] [address] [id number] [place] [address] Jun, [facility] [place] [facility] [address] [id number] [place] [address] Jun, [facility] [place] [facility] [address] [id number] [place] [address] Jun, [facility] [place] [facility] [address] [id number] [place] [address] Jun, [facility] [place] [facility] [address] [id number] [place] [address] Jun, [facility] [place] [facility] [address] [id number] [place] [address] Jun, [facility] [place] [facility] [address] [id number] [place] [address] May, [facility] [place] [facility] [address] [id number] [place] [address] May, [facility] [place] [facility] [address] [id number] [place] [address] May, [facility] [place] [facility] [address] [id number] [place] [address] May, [facility] [place] [facility] [address] [id number] [place] [address] May, [facility] [place] [facility] [address] [id number] [place] [address] May, [facility] [place] [facility] [address] [id number] [place] [address] May, [facility] [place] [facility] [address] [id number] [place] [address] May, [facility] [place] [facility] [address] [id number] [place] [address] May, [facility] [place] [facility] [address] [id number] [place] [address] May, [facility] [place] [facility] [address] [id number] [place] [address] May, [facility] [place] [facility] [address] [id number] [place] [address] May, [facility] [place] [facility] [address] [id number] [place] [address] May, [facility] [place] [facility] [address] [id number] [place] [address] Apr, [facility] [place] [facility] [address] [id number] [place] [address] Apr, [facility] [place] [facility] [address] [id number] [place] [address] Mar, [facility] [place] [facility] [address] [id number] [place] [address] Mar, [facility] [place] [facility] [address] [id number] [place] [address] Feb, [facility] [place] [facility] [address] [id number] [place] [address] Feb, [facility] [place] [facility] [address] [id number] [place] [address] Feb, [facility] [place] [facility] [address] [id number] [place] [address] Feb, [facility] [place] [facility] [address] [id number] [place] [address] Jan, [facility] [place] [facility] [address] [id number] [place] [address] Jan, [facility] [place] [facility] [address] [id number] [place] [address] Jan, [facility] [place] [facility] [address] [id number] [place] [address] Jan, [facility] [place] [facility] [address] [id number] [place] [address] Jan, [facility] [place] [facility] [address] [id number] [place] [address] Jan, [facility] [place] [facility] [address] [id number] [place] [address] Dec, [facility] [place] [facility] [address] [id number] [place] [address] Dec, [facility] [place] [facility] [address] [id number] [place] [address] Dec, [facility] [place] [facility] [address] [id number] [place] [address] Dec, [facility] [place] [facility] [address] [id number] [place] [address] Nov, [facility] [place] [facility] [address] [id number] [place] [address] October, [facility] [place] [facility] [address] [id number] [place] [address] October, [facility] [place] [facility] [address] [id number] [place] [address] October, [facility] [place] [facility] [address] [id number] [place] [address] Sep, [facility] [place] [facility] [address] [id number] [place] [address] Sep, [facility] [place] [facility] [address] [id number] [place] [address] Jun, [facility] [place] [facility] [address] [id number] [place] [address] Jun, [facility] [place] [facility] [address] [id number] [place] [address] Jun, [facility] [place] [facility] [address] [id number] [place] [address] Apr, [facility] [place] [facility] [address] [id number] [place] [address] Apr, [facility] [place] [facility] [address] [id number] [place] [address] Apr, [facility] [place] [facility] [address] [id number] [place] [address] Apr, [facility] [place] [facility] [address] [id number] [place] [address] Mar, [facility] [place] [facility] [address] [id number] [place] [address] Mar, [facility] [place] [facility] [address] [id number] [place] [address] Mar, [facility] [place] [facility] [address] [id number] [place] [address] Mar, [facility] [place] [facility] [address] [id number] [place] [address] Feb, [facility] [place] [facility] [address] [id number] [place] [address] 27 Feb, 2012 [facility] [place] [facility] [address] [id number] [place] [address] Feb, [facility] [place] [facility] [address] [id number] [place] [address] Jan, [facility] [place] [facility] [address] [id number] [place] [address] Jan, [facility] [place] [facility] [address] [id number] [place] [address] Jan, [facility] [place] [facility] [address] [id number] [place] [address] Jan, [facility] [place] [facility] [address] [id number] [place] [address] Dec, [facility] [place] [facility] [address] [id number] [place] [address] Dec, [facility] [place] [facility] [address] [id number] [place] [address] Nov, [facility] [place] [facility] [address] [id number] [place] [address] Nov, [facility] [place] [facility] [address] [id number] [place] [address] October, [facility] [place] [facility] [address] [id number] [place] [address] October, [facility] [place] [facility] [address] [id number] [place] [address] October, [facility] [place] [facility] [address] [id number] [place] [address] Sep, [facility] [place] [facility] [address] [id number] [place] [address] Sep, [facility] [place] [facility] [address] [id number] [place] [address] Sep, [facility] [place] [facility] [address] [id number] [place] [address] Aug, [facility] [place] [facility] [address] [id number] [place] [address] 26 Aug, 2011 [facility] [place] [facility] [address] [id number] [place] [address] 15 Aug, 2011 [facility] [place] [address] [id number] [place] [address] 15 Aug, 2011 [facility] [address] [id number] [place] [address] Aug, [facility] [address] [id number] [place] [address] 23 Jul, 2011 [facility] [address] [id number] [place] [address] 16 Jul, 2011 [facility] [address] [id number] [place] [address] 13 Jul, 2011 [facility] [id number] [place] [address] Jul, [facility] [address] [id number] [place] [address] Jul, [facility] [address] [id number] [place] [address] Jul, [facility] [address] [id number] [place] [address] Jul, [facility] [address] [id number] [place] [address] Jul, [facility] [address] [id number] [place] [address] Jun, [facility] [address] [id number] [place] [address] Jun, [facility] [id number] [place] [address] May, [facility] [address] [id number] [place] [address] May, [facility] [address] [id number] [place] [address] 08 May, 2011 [facility] [address] [id number] [place] [address] 08 May, 2011 [facility] [address] [id number] [place] [address] Apr, [facility] [address] [id number] [place] [address] Apr, [facility] [address] [id number] [place] [address] Apr, [facility] [address] [id number] [place] [address] Mar, [facility] [address] [id number] [place] [address] Mar, [facility] [address] [id number] [place] [address] Mar, [facility] [address] [id number] [place] [address] Mar, [facility] [address] [id number] [place] [address] Dec, [facility] [address] [id number] [place] [address] October, [facility] [address] [id number] [place] [address] May, [facility] [address] [id number] [place] [address] May, [facility] [address] [id number] [place] [address] May, [facility] [address] [id number] [place] [address] May, [facility] [address] [id number] [place] [address] Mar, [facility] [address] [id number] [place] [address] Mar, [facility] [address] [id number] [place] [address] May, [facility] [address] [id number] [place] [address] May, [facility] [address] [id number] [place] [address] May, [facility] [address] [id number] [place] [address] May, [facility] [address] [id number] [place] [address] Apr, [facility] [id number] [place] [address] Apr, [facility] [address] [id number] [place] [address] October, IMMUNIZATIONS No Known Immunizations SOCIAL HISTORY [...]
--- OUTSIDE RECORDS SUMMARY | 2020-01-13 12:13 | XMS REPORT ---
Author Author Monique RAHMAN [facility] Address [address] [place] [address] Care Team Providers Care [employer] Monitoring Technician Name Role Phone RASHEED RAHMAN Unavailable PROBLEMS Type Condition ICD9-CM Code WXN36-SK Code Onset Dates Condition S tatus SNOMED Code Problem MRSA (methicillin resistant staph aureus) culture positive Z22.322 Active 961786642 Problem History of illicit drug use Z87.898 Ac tive 063255549 Problem Snoring R06.83 Active 66364032 Problem Dysthymic disorder F34.1 Active 7 2107563 Problem Impaired circulation I99.9 Active 52787422 Problem Arthritis M19.90 Active 4314835 Problem 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 Active 875425720 Problem Mild persistent asthma without complication J45.30 Active 265066846 Problem Varicose veins of both lower extremities I83.93 Active 25155564 Problem On home oxygen therapy Z99.81 Active 726625403812 Problem Mild chronic obstructive pulmonary disease J44.9 Active 536664612 Problem Neuropathy G62.9 Active 217667578 Problem Essential hypertension I10 Active 67027101 Problem Social phobia F40.10 Active 450238 02 Problem Major depressive disorder, recurrent episode, moderate F33.1 Active 111076548 Problem Mood disorder F39 Active 801332 05 Problem Psychotic disorder F29 Active 6 8332051 Problem Hypertension, benign I10 Active 08153043 Problem Body mass index (BMI) 40.0-44.9, adult Z68.41 Active 411190631 Problem Panic disorder without agoraphobia F41.0 Active 12645179 Problem Unspecified psychosis not du e to a substance or known physiological condition F29 Active 064071465 Problem Agoraphobia F40.00 Active 11043352 Problem Fatigue R53.83 Active 51545379 Problem Onychomycosis B35.1 Active 016558 008 Problem Major depressive disorder in full remission F32.5 Active 55870181 Problem Slow transit constipation K59.01 Acti ve 32067693 Problem Chronic obstructive pulmonary disease, unspecified COPD ty pe J44.9 Active 63415130 ALLERGIES No Information ENCOUNTERS Encounter Location Date Diagnosis [place] [address] [address] Aug, [place] [address] [address] Aug, [place] [address] [address] Jul, [place] [address] [address] Jul, [place] [address] [address] Jul, Unspecified psychosis not due to a subst ance or known physiological condition F29 ; Chronic obstructive pulmonary disease, unspecified COPD type J44.9 and Body mass index (BMI) 40.0-44.9, adult Z68.41 [place] [address] [address] Jun, [place] [address] [address] Jun, Morbid obesity E66.01 [place] [address] [address] May, Morbid obesity E66.01 [place] [address] [address] May, Encounter for immunization Z23 [place] [address] [address] May, Major depressive disorder, recurrent epi sode, moderate F33.1 ; Panic disorder without agoraphobia F41.0 and Morbid obesity E66.01 [place] [address] [address] May, Major depressive disorder in full remiss ion F32.5 and Panic disorder without agoraphobia F41.[address] [address] Apr, Morbid obesity E66.[address] [address] Apr, Slow transit constipation K59.01 and Lois lulitis of left lower extremity L03.[address] [address] Apr, Morbid obesity E66.[address] [address] Apr, [address] [address] Apr, Major depressive disorder, recurrent epi sode, moderate F33.1 and Panic disorder without agoraphobia F41.[address] [address] Mar, Viral upper respiratory tract infection J06.[address] [address] Mar, Bronchitis J40 and Encounter for immuniz ation Z23 [address] [address] Mar, Morbid obesity E66.[address] [address] Feb, Major depressive disorder, recurrent epi sode, moderate F33.1 and Panic disorder without agoraphobia F41.[address] [address] Feb, Morbid obesity E66.[address] [address] 06 Feb, 2019 Onychomycosis B35.1 ; Type 2 diabetes me llitus with diabetic neuropathic arthropathy E11.610 and Xerosis of skin L85.[address] [id number] [place] [address] Feb, Major depressive disorder, recurrent epi sode, moderate F33.1 ; Panic disorder without agoraphobia F41.0 and Morbid obesity E66.01 [place] [address] [address] Jan, Major depressive disorder in full remiss ion F32.5 and Panic disorder without agoraphobia F41.0 [place] [address] [address] Jan, Pneumonia of both lower lobes due to inf ectious organism J18.1 and Morbid obesity E66.01 [place] [address] [address] Jan, [place] [address] [address] Jan, Major depressive disorder in full remiss ion F32.5 and Panic disorder without agoraphobia F41.0 [place] [address] [address] Jan, [place] [address] [address] Jan, Major depressive disorder, recurrent epi sode, moderate F33.1 ; Panic disorder without agoraphobia F41.0 and Morbid obesity E66.01 [place] [address] [address] Dec, Bilious vomiting with nausea R11.14 ; Co ughing R05 and Choking, subsequent encounter T17.308D [place] [address] [address] Dec, Morbid obesity E66.01 [place] [address] [address] Dec, Major depressive disorder, recurrent epi sode, moderate F33.1 and Panic disorder without agoraphobia F41.0 [place] [address] [address] Dec, [place] [address] [address] Dec, Major depressive disorder, recurrent epi sode, moderate F33.1 [place] [address] [address] Nov, Major depressive disorder, recurrent epi sode, moderate F33.1 ; Panic disorder without agoraphobia F41.0 and Morbid obesity E66.01 [place] [address] [address] Nov, Morbid obesity E66.01 [place] [address] [address] Nov, Major depressive disorder, recurrent epi sode, moderate F33.1 and Panic disorder without agoraphobia F41.0 [facility] [place] [address] [address] Nov, Allergic reaction, initial e ncounter T78.40XA and Morbid obesity E66.[address] [address] Nov, [address] [address] Nov, Morbid obesity E66.01 ; Swallowing probl em R13.10 and Hypertension, benign I10 [facility] IN [place] [id number] [address] [place] [address] Nov, Morbid obesity E66.01 ; COPD exacerbation J44.1 and Non- recurrent acute suppurative otitis media of left ear without spontaneous rupture of tympanic membrane H66.[address] [address] Nov, Onychomycosis B35.1 ; Neuropathy G62.9 a nd Fissure in skin of foot R23.[address] [address] October, Major depressive disorder, recurrent epi sode, moderate F33.1 ; Panic disorder without agoraphobia F41.0 and Morbid obesity E66.01 [facility] IN [facility] [address] [facility] [id number] [address] [place] [address] October, Viral upper respiratory trac t infection J06.9 [facility] [address] [address] October, [facility] [address] [address] October, Major depressive disorder, recurrent epi sode, moderate F33.1 and Panic disorder without agoraphobia F41.0 [facility] [address] [address] October, [facility] [address] [address] October, [facility] [address] [address] October, [facility] [address] [address] October, [place] [address] [address] October, [facility] [address] [address] October, [facility] [address] [address] October, Major depressive disorder, recurrent epi sode, moderate F33.1 and Panic disorder without agoraphobia F41.0 [facility] [address] [address] Sep, Morbid obesity E66.01 and Lumbar neuriti s M54.16 [facility] [address] [place] [id number] [place] [address] Sep, Panic disorder without agoraphobia F41.0 and Major depressive disorder, recurrent episode, moderate F33.1 [facility] [address] [facility] [id number] [address] [place] [address] Sep, Gastroenteritis K52.9 ; Low back pain M54.5 ; Other chronic pain G89.29 and Morbid obesity E66.01 [facility] [address] [address] Sep, Major depressive disorder, recurrent epi sode, moderate F33.1 ; Panic disorder without agoraphobia F41.0 and Social phobia F40.10 [place] [address] [address] Sep, Panic disorder without agoraphobia F41.0 [place] [address] [address] Sep, Panic disorder without agoraphobia F41.0 [place] [address] [address] Aug, Panic disorder without agoraphobia F41.0 ; Major depressive disorder, recurrent episode, moderate F33.1 ; Social phobia F40.10 ; Psychotic disorder F29 ; Tardive dyskinesia G24.01 and Morbid obesity E66.01 [place] [address] [address] Aug, Dysthymic disorder F34.1 and Psychotic d isorder F29 [place] [address] [address] Aug, Encounter for Medicare annual wellness e xam Z00.00 ; Morbid obesity E66.01 and 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 arthropathy E11.610 [place] [address] [address] Aug, Dysthymic disorder F34.1 and Psychotic d isorder F29 [place] [address] [address] Aug, Neuropathy G62.9 ; Onychomycosis B35.1 a nd Xerosis of skin L85.3 [place] [address] [address] Jul, [place] [address] [address] Jul, Mood disorder F39 ; Wheezing R06.2 ; Diego sanchez, initial encounter T17.308A and Coughing R05 [place] [address] [address] 07 Jul, 2018 Low back pain M54.5 [facility] WALK IN [facility] [address] [facility] [id number] [address] [place] [address] Jun, Flu-like symptoms R68.89 ; B HI 45.0-49.9, adult Z68.42 ; COPD exacerbation J44.1 and Acute bronchitis J20.9 [place] [address] [address] Jun, [place] [address] [address] May, [place] [address] [address] May, Onychomycosis B35.1 and Type 2 diabetes mellitus with diabetic neuropathic arthropathy E11.610 [place] [address] [address] May, Low back pain M54.5 and Edema leg R60.0 [place] [address] [address] May, BMI 45.0-49.9, adult Z68.42 ; Well woman exam with routine gynecological exam Z01.419 and Breast cancer screening Z12.[address] [address] Apr, Arthritis M19.90 [place] [address] [address] 16 Apr, 2018 Arthritis M19.90 and Otalgia of both ear s H92.03 [place] [address] [address] Feb, [place] [address] [address] 28 Feb, 2018 Low back pain M54.5 ; Other chronic pain G89.29 ; Exertional asthma J45.990 and Encounter for immunization Z23 [place] [address] [address] Feb, Skin fissures R23.4 ; Neuropathy G62.9 a nd Onychomycosis B35.1 [place] [address] [address] 05 Feb, 2018 Dysthymic disorder F34.1 [place] [address] [address] 04 Feb, 2018 [place] [address] [address] Jan, [place] [address] [address] Jan, Abrasion of right elbow, initial encount er S50.311A ; Abrasion, right knee, initial encounter S80.211A and Sprain of other ligament of right ankle, initial encounter S93.491A [place] [address] [address] Jan, [facility] [address] [facility] [id number] [address] [place] [address] Jan, Injury of left ankle, initia l encounter S99.912A ; Fall down stairs, initial encounter W10.8XXA and BMI 45.0-49.9, adult Z68.42 [place] [address] [address] Jan, COPD exacerbation J44.1 [place] [address] [address] 13 Jan, 2018 Dysfunction of both eustachian tubes H69 .83 [place] [address] [address] 08 Jan, 2018 Bronchitis J40 and Acute suppurative giovana tis media of left ear without spontaneous rupture of tympanic membrane, recurrence not specified H66.002 [place] [address] [address] Jan, [place] [address] [address] Jan, Bronchitis J40 and BMI 40.0-44.9, adult Z68.41 [place] [address] [address] Jan, [place] [address] [address] Dec, Gastric pain R10.9 [place] [address] [address] Dec, [place] [address] [address] Dec, History of illicit drug use Z87.898 ; Ne uropathy G62.9 ; COPD (chronic obstructive pulmonary disease) with chronic bronchitis J44.9 and Acute pain of right knee M25.561 [place] [address] [address] Nov, [place] [address] [address] Nov, Onychomycosis B35.1 and Contusion of lef t foot, subsequent encounter S90.32XD [address] [address] Nov, COPD exacerbation J44.1 [place] [address] [address] Sep, [place] [address] [address] Sep, Dysthymic disorder F34.1 ; Tobacco abuse Z72.0 ; Pain in right knee M25.561 ; Pain in left knee M25.562 ; Other chronic pain G89.29 and BMI 40.0- 44.9, adult Z68.[address] [address] 22 Aug, 2017 Major depressive disorder, recurrent epi sode, moderate F33.1 and Social phobia F40.[address] [address] 14 Aug, 2017 Dysthymic disorder F34.1 ; Non-pressure chronic ulcer of left thigh, unspecified ulcer stage L97.129 ; Tobacco abuse Z72.0 ; Mild chronic obstructive pulmonary disease J44.9 and Forgetfulness R68.[address] [address] 09 Aug, 2017 Onychomycosis B35.1 ; Fissure in skin of foot R23.4 and Foot callus L84 [facility] IN [place] [id number] [address] [place] [address] Jul, Right medial knee pain M25.5 61 ; Upper respiratory tract infection, unspecified type J06.9 and BMI 40.0-44.9, adult Z68.41 [facility] W[facility] IN [address] [address] 08 Jul, 2017 Nausea and vomiting, intract ability of vomiting not specified, unspecified vomiting type R11.2 ; Left ear pain H92.02 and Gastric pain R10.[address] [address] Apr, Encounter for immunization Z23 [address] [address] Apr, Onychomycosis B35.1 ; Xerosis of skin L8 5.3 ; Neuropathy G62.9 and Type 2 diabetes mellitus with diabetic neuropathic arthropathy E11.[address] [address] Jan, Onychomycosis B35.1 and Neuropathy G62.9 [facility] [address] [address] Dec, [facility] [address] [address] Dec, [facility] [address] [address] Nov, [facility] [address] [address] Aug, [facility] [address] [address] Aug, [facility] [address] [address] Jul, [facility] [address] [address] Jul, [facility] [address] [address] Jul, Decubitus ulcer of left thigh, stage 2 L 89.892 [place] [address] [address] 17 Jul, 2016 Decubitus ulcer of left thigh, stage 2 L 89.892 [place] [address] [address] 17 Jul, 2016 [facility] [address] [address] 15 Jul, 2016 Decubitus ulcer of left thigh, stage 2 L 89.892 [facility] [address] [address] 14 Jul, 2016 [facility] [address] [address] 13 Jul, 2016 Cellulitis of other specified site L03.8 18 ; Illicit drug use F19.90 and Decubitus ulcer of left thigh, stage 2 L89.892 [place] [address] [address] Jul, [place] [address] [address] Jul, Cellulitis of right breast N61.0 [place] [address] [address] Jun, [place] [address] [address] Jun, [place] [address] [address] Jun, Wheezing R06.2 and Arthralgia, unspecifi ed joint M25.50 [place] [address] [address] May, [place] [address] [address] May, [place] [address] [address] May, [place] [address] [address] May, Shortness of breath R06.02 [place] [address] [address] 02 May, 2016 Onychomycosis B35.1 and Fissure in skin of foot R23.4 [place] [address] [address] Apr, [facility] [address] [facility] [id number] [address] [place] [address] Apr, Dizziness R42 [place] [address] [address] 14 Apr, 2016 Shortness of breath R06.02 ; Essential h ypertension I10 ; Dizziness R42 and On home oxygen therapy Z99.81 [place] [address] [address] Apr, [facility] [address] [address] Apr, [facility] [address] [address] Apr, [facility] [address] [address] Apr, [facility] [address] [address] Apr, [facility] [address] [address] Apr, [facility] [address] [address] Apr, [facility] [address] [address] Mar, Mild chronic obstructive pulmonary disea se J44.9 [facility] [address] [address] Mar, [facility] [address] [address] Mar, Epigastric pain R10.13 ; Low back pain M 54.5 ; Other chronic pain G89.29 and Breast cancer screening Z12.39 [facility] [address] [address] Mar, [facility] [address] [address] Mar, [facility] [address] [address] Feb, [facility] [address] [address] Feb, [facility] [address] [address] Feb, Fissure in skin of foot R23.4 and Onycho mycosis B35.1 [facility] [address] [address] Jan, Agoraphobia F40.00 [facility] [address] [address] Dec, Agoraphobia F40.00 [facility] [address] [address] Dec, Mild persistent asthma without complicat ion J45.30 ; Dysthymic disorder F34.1 and Upper respiratory tract infection, unspecified type J06.9 [facility] [address] [address] Nov, Agoraphobia F40.00 [place] [address] [address] October, Agoraphobia F40.00 [place] [address] [address] Sep, Panic disorder without agoraphobia F41.0 ; Agoraphobia F40.00 and Dysthymic disorder F34.1 [place] [address] [address] Sep, Panic attacks F41.0 [facility] [address] [address] Sep, [facility] [address] [address] Sep, Panic disorder without agoraphobia F41.0 ; Varicose veins of both lower extremities I83.93 and Fatigue R53.83 [place] [address] [address] Sep, Fatigue R53.83 [facility] [address] [address] Sep, [facility] [address] [address] Aug, [facility] [address] [address] Aug, [place] [address] [address] Aug, Type 2 diabetes mellitus with diabetic n europathic arthropathy E11.610 [place] [address] [address] Aug, Panic disorder without agoraphobia F41.0 ; Agoraphobia F40.00 and Dysthymic disorder F34.1 [place] [address] [address] Aug, Shortness of breath R06.02 ; Panic attac ks F41.0 ; COPD (chronic obstructive pulmonary disease) J44.9 ; Tobacco abuse Z72.0 ; Family history of diabetes mellitus Z83.3 and Weight gain R63.5 [place] [address] [address] Aug, [place] [address] [address] Jul, [place] [address] [address] Jun, Onychomycosis B35.1 ; Neuropathy G62.9 a nd Impaired circulation I99.[address] [address] 09 Mar, 2015 Fissure in skin of foot R23.4 ; Onychomy cosis B35.1 and Type 2 diabetes mellitus with diabetic neuropathic arthropathy E11.610 [place] [address] [address] 18 Feb, 2015 Family history of coronary arteriosclero sis V17.3 [place] [address] [address] 15 Feb, 2015 Allergic rhinitis due to pollen 477.0 ; Unspecified breast screening V76.10 ; Anxiety 300.00 and Family history of coronary arteriosclerosis V17.3 [place] [address] [id number] [place] [address] Jan, [facility] [address] [id number] [place] [address] Dec, [facility] [address] [id number] [place] [address] Dec, Onychomycosis 110.1 and Skin fissures 70 9.8 [facility] [address] [id number] [place] [address] Sep, [facility] [address] [id number] [place] [address] Sep, [facility] [address] [id number] [place] [address] Aug, [facility] [address] [id number] [place] [address] Aug, [facility] [address] [id number] [place] [address] Jul, [facility] [address] [id number] [place] [address] Jul, [facility] [address] [id number] [place] [address] Jun, [facility] [address] [id number] [place] [address] Jun, [facility] [address] [id number] [place] [address] Jun, [facility] [place] [facility] [address] [id number] [place] [address] Jun, [facility] [address] [id number] [place] [address] Jun, [facility] [place] [facility] [address] [id number] [place] [address] May, [facility] [place] [facility] [address] [id number] [place] [address] May, [facility] [address] [id number] [place] [address] May, [facility] [place] [facility] [address] [id number] [place] [address] May, [facility] [place] [facility] [address] [id number] [place] [address] May, [facility] [place] [facility] [address] [id number] [place] [address] May, [facility] [place] [facility] [address] [id number] [place] [address] May, [facility] [place] [facility] [address] [id number] [place] [address] May, [facility] [address] [id number] [place] [address] Apr, [facility] [address] [id number] [place] [address] Apr, [facility] [address] [id number] [place] [address] Apr, [facility] [address] [id number] [place] [address] Apr, [facility] [address] [id number] [place] [address] Apr, [facility] [address] [id number] [place] [address] Apr, [facility] [address] [id number] [place] [address] Apr, [facility] [address] [id number] [place] [address] Apr, [facility] [id number] [place] [address] Apr, [facility] [address] [id number] [place] [address] Apr, [facility] [place] [facility] [address] [id number] [place] [address] Mar, [facility] [place] [facility] [address] [facility] [id number] [place] [address] Mar, 2013 [facility] [place] [facility] [address] [facility] [id number] [place] [address] Mar, [facility] [place] [facility] [address] [facility] [id number] [place] [address] Mar, [facility] [place] [facility] [address] [id number] [place] [address] Mar, [facility] [place] [facility] [address] [facility] [id number] [place] [address] Mar, 2013 [facility] [place] [facility] [address] [facility] [id number] [place] [address] Mar, [facility] [place] [facility] [address] [id number] [place] [address] Mar, 2013 [facility] [place] [facility] [address] [id number] [place] [address] Mar, [facility] [place] [facility] [address] [id number] [place] [address] Mar, [facility] [place] [facility] [address] [id number] [place] [address] Mar, [facility] [place] [facility] [address] [id number] [place] [address] Mar, 2013 [facility] [place] [facility] [address] [id number] [place] [address] Mar, [facility] [place] [facility] [address] [facility] [id number] [place] [address] Mar, 2013 [facility] [place] [facility] [address] [facility] [id number] [place] [address] Mar, [facility] [place] [facility] [address] [facility] [id number] [place] [address] Mar, [facility] [place] [facility] [address] [id number] [place] [address] Mar, [facility] [place] [facility] [address] [id number] [place] [address] 16 Mar, 2013 [facility] [place] [facility] [address] [facility] [id number] [place] [address] 16 Mar, 2013 [facility] [place] [facility] [address] [facility] [id number] [place] [address] 15 Mar, 2013 [facility] [place] [facility] [address] [id number] [place] [address] 14 Mar, 2013 [facility] [place] [facility] [address] [facility] [id number] [place] [address] 14 Mar, 2013 [facility] [place] [facility] [address] [facility] [id number] [place] [address] 14 Mar, 2013 [facility] [place] [facility] [address] [id number] [place] [address] 14 Mar, 2013 [facility] [place] [facility] [address] [id number] [place] [address] 09 Mar, 2013 [facility] [place] [facility] [address] [id number] [place] [address] 09 Mar, 2013 [facility] [place] [facility] [address] [id number] [place] [address] 09 Mar, 2013 [facility] [place] [facility] [address] [id number] [place] [address] 09 Mar, 2013 [facility] [place] [facility] [address] [id number] [place] [address] 30 Sep, 2013 [facility] [place] [facility] [address] [id number] [place] [address] 30 Sep, 2013 [facility] [place] [facility] [address] [id number] [place] [address] 30 Sep, 2013 [facility] [place] [facility] [address] [id number] [place] [address] 30 Sep, 2013 [facility] [place] [facility] [address] [id number] [place] [address] 26 Sep, 2013 [facility] [place] [facility] [address] [id number] [place] [address] 26 Sep, 2013 [facility] [place] [facility] [address] [id number] [place] [address] 09 Feb, 2013 [facility] [place] [facility] [address] [id number] [place] [address] Feb, 2013 [facility] [place] [facility] [address] [facility] [id number] [place] [address] Feb, 2013 [facility] [place] [facility] [address] [id number] [place] [address] Feb, 2013 [facility] [place] [facility] [address] [facility] [id number] [place] [address] Feb, 2013 [facility] [place] [facility] [address] [id number] [place] [address] Feb, 2013 [facility] [place] [facility] [address] [id number] [place] [address] Jan, [facility] [place] [facility] [address] [id number] [place] [address] Jan, [facility] [place] [facility] [address] [id number] [place] [address] Jan, [facility] [place] [facility] [address] [id number] [place] [address] Jan, [facility] [place] [facility] [address] [id number] [place] [address] Jan, [facility] [place] [facility] [address] [id number] [place] [address] Jan, [facility] [place] [facility] [address] [id number] [place] [address] Jan, [facility] [place] [facility] [address] [id number] [place] [address] Jan, [facility] [place] [facility] [address] [id number] [place] [address] Jan, [facility] [place] [facility] [address] [id number] [place] [address] Jan, [facility] [place] [facility] [address] [id number] [place] [address] Jan, [facility] [place] [facility] [address] [id number] [facility] [place] [address] Jan, [facility] [place] [facility] [address] [facility] [id number] [facility] [place] [address] Jan, [facility] [place] [facility] [address] [facility] [id number] [facility] [place] [address] Dec, [facility] [place] [facility] [address] [facility] [id number] [facility] [place] [address] Dec, [facility] [place] [facility] [address] [facility] [id number] [place] [address] Dec, [facility] [place] [facility] [address] [facility] [id number] [facility] [place] [address] Dec, [facility] [place] [facility] [address] [facility] [id number] [place] [address] Dec, [facility] [place] [facility] [address] [id number] [place] [address] Dec, [facility] [place] [facility] [address] [facility] [id number] [place] [address] Dec, [facility] [place] [facility] [address] [facility] [id number] [place] [address] Dec, [facility] [place] [facility] [address] [facility] [id number] [place] [address] Dec, [facility] [place] [facility] [address] [id number] [place] [address] Dec, [facility] [place] [facility] [address] [facility] [id number] [place] [address] Dec, [facility] [place] [facility] [address] [facility] [id number] [place] [address] Dec, [facility] [place] [facility] [address] [facility] [id number] [place] [address] Dec, [facility] [place] [facility] [address] [facility] [id number] [place] [address] Dec, [facility] [place] [facility] [address] [facility] [id number] [facility] [place] [address] Dec, [facility] [place] [facility] [address] [facility] [id number] [facility] [place] [address] Dec, [facility] [place] [facility] [address] [facility] [id number] [facility] [place] [address] Dec, [facility] [place] [facility] [address] [id number] [place] [address] Dec, [facility] [place] [facility] [address] [facility] [id number] [facility] [place] [address] Nov, [facility] [place] [facility] [address] [facility] [id number] [facility] [place] [address] Nov, [facility] [place] [facility] [address] [facility] [id number] [place] [address] Nov, [facility] [place] [facility] [address] [id number] [place] [address] Nov, [facility] [place] [facility] [address] [id number] [place] [address] Nov, [facility] [place] [facility] [address] [facility] [id number] [place] [address] Nov, [facility] [place] [facility] [address] [id number] [place] [address] Nov, [facility] [place] [facility] [address] [id number] [place] [address] Nov, [facility] [place] [facility] [address] [id number] [place] [address] Nov, [facility] [place] [facility] [address] [facility] [id number] [facility] [place] [address] Nov, [facility] [place] [facility] [address] [facility] [id number] [place] [address] Nov, [facility] [place] [facility] [address] [facility] [id number] [place] [address] Nov, [facility] [place] [facility] [address] [id number] [place] [address] Nov, [facility] [place] [facility] [address] [id number] [place] [address] Nov, [facility] [place] [facility] [address] [id number] [place] [address] Nov, [facility] [place] [facility] [address] [id number] [place] [address] Nov, [facility] [place] [facility] [address] [id number] [place] [address] Nov, [facility] [place] [facility] [address] [id number] [place] [address] Nov, [facility] [place] [facility] [address] [id number] [place] [address] Nov, [facility] [place] [facility] [address] [id number] [place] [address] Nov, [facility] [place] [facility] [address] [id number] [place] [address] October, [facility] [place] [facility] [address] [id number] [place] [address] October, [facility] [place] [facility] [address] [id number] [place] [address] October, [facility] [place] [facility] [address] [id number] [place] [address] October, [facility] [place] [facility] [address] [id number] [place] [address] Sep, [facility] [place] [facility] [address] [id number] [place] [address] Sep, [facility] [place] [facility] [address] [id number] [place] [address] Sep, [facility] [place] [facility] [address] [id number] [place] [address] Sep, [facility] [place] [facility] [address] [id number] [place] [address] Sep, [facility] [place] [facility] [address] [id number] [place] [address] Sep, [facility] [place] [facility] [address] [facility] [id number] [place] [address] Sep, [facility] [place] [facility] [address] [facility] [id number] [place] [address] Sep, [facility] [place] [facility] [address] [id number] [place] [address] Sep, [facility] [place] [facility] [address] [id number] [place] [address] Aug, [facility] [place] [facility] [address] [facility] [id number] [place] [address] Aug, [facility] [place] [facility] [address] [id number] [place] [address] Aug, [facility] [place] [facility] [address] [id number] [place] [address] Aug, [facility] [place] [facility] [address] [id number] [place] [address] Aug, [facility] [place] [facility] [address] [id number] [place] [address] Aug, [facility] [place] [facility] [address] [id number] [place] [address] Aug, [facility] [place] [facility] [address] [id number] [place] [address] Aug, [facility] [place] [facility] [address] [id number] [place] [address] Jul, [facility] [place] [facility] [address] [id number] [place] [address] Jul, [facility] [place] [facility] [address] [facility] [id number] [place] [address] Jun, [facility] [place] [facility] [address] [id number] [place] [address] Jun, [facility] [place] [facility] [address] [id number] [place] [address] Jun, [facility] [place] [facility] [address] [id number] [place] [address] Jun, [facility] [place] [facility] [address] [id number] [place] [address] Jun, [facility] [place] [facility] [address] [id number] [place] [address] Jun, [facility] [place] [facility] [address] [id number] [place] [address] Jun, [facility] [place] [facility] [address] [id number] [place] [address] Jun, [facility] [place] [facility] [address] [id number] [place] [address] Jun, [facility] [place] [facility] [address] [id number] [place] [address] Jun, [facility] [place] [facility] [address] [id number] [place] [address] Jun, [facility] [place] [facility] [address] [id number] [place] [address] Jun, [facility] [place] [facility] [address] [id number] [place] [address] May, [facility] [place] [facility] [address] [id number] [place] [address] May, [facility] [place] [facility] [address] [id number] [place] [address] May, [facility] [place] [facility] [address] [id number] [place] [address] May, [facility] [place] [facility] [address] [id number] [place] [address] May, [facility] [place] [facility] [address] [id number] [place] [address] May, [facility] [place] [facility] [address] [id number] [place] [address] May, [facility] [place] [facility] [address] [id number] [place] [address] May, [facility] [place] [facility] [address] [id number] [place] [address] May, [facility] [place] [facility] [address] [id number] [place] [address] May, [facility] [place] [facility] [address] [id number] [place] [address] May, [facility] [place] [facility] [address] [id number] [place] [address] May, [facility] [place] [facility] [address] [id number] [place] [address] May, [facility] [place] [facility] [address] [id number] [place] [address] Apr, [facility] [place] [facility] [address] [id number] [place] [address] Apr, [facility] [place] [facility] [address] [id number] [place] [address] Mar, [facility] [place] [facility] [address] [id number] [place] [address] Mar, [facility] [place] [facility] [address] [id number] [place] [address] 24 Feb, 2013 [facility] [place] [facility] [address] [id number] [place] [address] Feb, [facility] [place] [facility] [address] [id number] [place] [address] Feb, [facility] [place] [facility] [address] [id number] [place] [address] Feb, [facility] [place] [facility] [address] [id number] [place] [address] Jan, [facility] [place] [facility] [address] [id number] [place] [address] Jan, [facility] [place] [facility] [address] [id number] [place] [address] Jan, [facility] [place] [facility] [address] [id number] [place] [address] Jan, [facility] [place] [facility] [address] [id number] [place] [address] Jan, [facility] [place] [facility] [address] [id number] [place] [address] Jan, [facility] [place] [facility] [address] [id number] [place] [address] Dec, [facility] [place] [facility] [address] [id number] [place] [address] Dec, [facility] [place] [facility] [address] [id number] [place] [address] Dec, [facility] [place] [facility] [address] [id number] [place] [address] Dec, [facility] [place] [facility] [address] [id number] [place] [address] Nov, [facility] [place] [facility] [address] [id number] [place] [address] October, [facility] [place] [facility] [address] [id number] [place] [address] October, [facility] [place] [facility] [address] [id number] [place] [address] October, [facility] [place] [facility] [address] [id number] [place] [address] Sep, [facility] [place] [facility] [address] [id number] [place] [address] Sep, [facility] [place] [facility] [address] [id number] [place] [address] Jun, [facility] [place] [facility] [address] [id number] [place] [address] Jun, [facility] [place] [facility] [address] [id number] [place] [address] Jun, [facility] [place] [facility] [address] [id number] [place] [address] Apr, [facility] [place] [facility] [address] [id number] [place] [address] Apr, [facility] [place] [facility] [address] [id number] [place] [address] Apr, [facility] [place] [facility] [address] [id number] [place] [address] Apr, [facility] [place] [facility] [address] [id number] [place] [address] Mar, [facility] [address] [id number] [place] [address] Mar, [facility] [address] [id number] [facility] [place] [address] Mar, [facility] [address] [id number] [place] [address] Mar, [facility] [address] [id number] [place] [address] Feb, [facility] [address] [id number] [place] [address] Feb, [facility] [address] [id number] [place] [address] Feb, [facility] [address] [id number] [place] [address] Jan, [facility] [address] [id number] [place] [address] Jan, [facility] [address] [id number] [place] [address] Jan, [facility] [address] [id number] [place] [address] Jan, [facility] [address] [id number] [place] [address] Dec, [facility] [address] [id number] [place] [address] Dec, [facility] [address] [id number] [place] [address] Nov, [facility] [address] [id number] [place] [address] Nov, [facility] [address] [id number] [place] [address] October, [facility] [address] [id number] [place] [address] October, [facility] [address] [id number] [place] [address] October, [facility] [address] [id number] [place] [address] Sep, [facility] [address] [id number] [place] [address] Sep, [facility] [address] [id number] [place] [address] Sep, [facility] [address] [id number] [place] [address] Aug, [facility] [address] [id number] [place] [address] Aug, [facility] [address] [id number] [place] [address] Aug, [facility] [address] [id number] [place] [address] Aug, [facility] [address] [id number] [place] [address] Aug, [facility] [address] [id number] [place] [address] Jul, [facility] [address] [id number] [place] [address] 16 Jul, 2011 [facility] [address] [id number] [place] [address] 13 Jul, 2011 [facility] [address] [id number] [place] [address] 09 Jul, 2011 [facility] [address] [id number] [place] [address] 07 Jul, 2011 [facility] [address] [id number] [place] [address] Jul, [facility] [address] [id number] [place] [address] Jul, [facility] [address] [id number] [place] [address] Jul, [facility] [address] [id number] [place] [address] Jun, [facility] [address] [id number] [place] [address] Jun, [facility] [address] [id number] [place] [address] May, [facility] [address] [id number] [place] [address] May, [facility] [address] [id number] [place] [address] May, [facility] [address] [id number] [place] [address] May, [facility] [address] [id number] [place] [address] Apr, [facility] [address] [id number] [place] [address] Apr, [facility] [address] [id number] [place] [address] Apr, [facility] [address] [id number] [place] [address] Mar, [facility] [address] [id number] [place] [address] Mar, [facility] [address] [id number] [place] [address] Mar, [facility] [address] [id number] [place] [address] Mar, [facility] [id number] [place] [address] Dec, [facility] [id number] [place] [address] October, [facility] [id number] [place] [address] May, [facility] [id number] [place] [address] May, [facility] [id number] [place] [address] May, [facility] [id number] [place] [address] May, [facility] [id number] [place] [address] Mar, [facility] [id number] [place] [address] Mar, [facility] [id number] [place] [address] May, [facility] [id number] [place] [address] May, [facility] [id number] [place] [address] May, [facility] [id number] [place] [address] May, [facility] [id number] [place] [address] Apr, [facility] [id number] [place] [address] Apr, [facility] [id number] [place] [address] October, IMMUNIZATIONS No Known Immunizations SOCIAL HISTORY Never Assessed REASON FOR VISIT PLAN OF CARE VITAL SIGNS MEDICATIONS Unknown Medications RESULTS No Results PROCEDURES No Known procedures INSTRUCTIONS MEDICATIONS ADMINISTERED No Known Medications MEDICAL (GENERAL) HISTORY Type Description Date Medical History Anxiety disorder Medical History depression Medical History acid reflux Medical History asthma Medical History copd Medical History [facility] History hyperlipidemia Surgical History carpal tunnel release [...]
--- OUTSIDE RECORDS SUMMARY | 2020-01-13 12:13 | XMS REPORT ---
Author Author Monique RAHMAN [facility] Address [address] [place] [address] Care Team Providers Care Independent Beauty Consultant Name Role Phone RASHEED RAHMAN Unavailable PROBLEMS Type Condition ICD9-CM Code EOX43-QE Code Onset Dates Condition S tatus SNOMED Code Problem MRSA (methicillin resistant staph aureus) culture positive Z22.322 Active 144253223 Problem History of illicit drug use Z87.898 Ac tive 455592702 Problem Snoring R06.83 Active 33302522 Problem Dysthymic disorder F34.1 Active 7 5438950 Problem Impaired circulation I99.9 Active 48523560 Problem Arthritis M19.90 Active 3202071 Problem 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 Active 945841657 Problem Mild persistent asthma without complication J45.30 Active 337903064 Problem Varicose veins of both lower extremities I83.93 Active 74556479 Problem On home oxygen therapy Z99.81 Active 356609682377 Problem Mild chronic obstructive pulmonary disease J44.9 Active 160654364 Problem Neuropathy G62.9 Active 899102025 Problem Essential hypertension I10 Active 59222276 Problem Social phobia F40.10 Active 945244 02 Problem Major depressive disorder, recurrent episode, moderate F33.1 Active 188941892 Problem Mood disorder F39 Active 183131 05 Problem Psychotic disorder F29 Active 6 3137370 Problem Hypertension, benign I10 Active 46392285 Problem Body mass index (BMI) 40.0-44.9, adult Z68.41 Active 876981581 Problem Panic disorder without agoraphobia F41.0 Active 91890688 Problem Unspecified psychosis not du e to a substance or known physiological condition F29 Active 373603023 Problem Agoraphobia F40.00 Active 63998619 Problem Fatigue R53.83 Active 44429741 Problem Onychomycosis B35.1 Active 918425 008 Problem Major depressive disorder in full remission F32.5 Active 37606213 Problem Slow transit constipation K59.01 Acti ve 55572199 Problem Chronic obstructive pulmonary disease, unspecified COPD ty pe J44.9 Active 11257392 ALLERGIES No Information ENCOUNTERS Encounter Location Date Diagnosis [place] [address] [address] Aug, [place] [address] [address] Aug, [place] [address] [address] Jul, [place] [address] [address] Jul, [place] [address] [address] Jul, Unspecified psychosis not due to a subst ance or known physiological condition F29 ; Chronic obstructive pulmonary disease, unspecified COPD type J44.9 and Body mass index (BMI) 40.0-44.9, adult Z68.41 [place] [address] [address] Jun, [place] [address] [address] Jun, Morbid obesity E66.01 [place] [address] [address] May, Morbid obesity E66.01 [place] [address] [address] May, Encounter for immunization Z23 [place] [address] [address] May, Major depressive disorder, recurrent epi sode, moderate F33.1 ; Panic disorder without agoraphobia F41.0 and Morbid obesity E66.01 [place] [address] [address] May, Major depressive disorder in full remiss ion F32.5 and Panic disorder without agoraphobia F41.[address] [address] Apr, Morbid obesity E66.[address] [address] Apr, Slow transit constipation K59.01 and Lois lulitis of left lower extremity L03.[address] [address] Apr, Morbid obesity E66.[address] [address] Apr, [address] [address] Apr, Major depressive disorder, recurrent epi sode, moderate F33.1 and Panic disorder without agoraphobia F41.[address] [address] Mar, Viral upper respiratory tract infection J06.[address] [address] Mar, Bronchitis J40 and Encounter for immuniz ation Z23 [address] [address] Mar, Morbid obesity E66.[address] [address] Feb, Major depressive disorder, recurrent epi sode, moderate F33.1 and Panic disorder without agoraphobia F41.[address] [address] Feb, Morbid obesity E66.[address] [address] 06 Feb, 2019 Onychomycosis B35.1 ; Type 2 diabetes me llitus with diabetic neuropathic arthropathy E11.610 and Xerosis of skin L85.[address] [id number] [place] [address] Feb, Major depressive disorder, recurrent epi sode, moderate F33.1 ; Panic disorder without agoraphobia F41.0 and Morbid obesity E66.01 [place] [address] [address] Jan, Major depressive disorder in full remiss ion F32.5 and Panic disorder without agoraphobia F41.0 [place] [address] [address] Jan, Pneumonia of both lower lobes due to inf ectious organism J18.1 and Morbid obesity E66.01 [place] [address] [address] Jan, [place] [address] [address] Jan, Major depressive disorder in full remiss ion F32.5 and Panic disorder without agoraphobia F41.0 [place] [address] [address] Jan, [place] [address] [address] Jan, Major depressive disorder, recurrent epi sode, moderate F33.1 ; Panic disorder without agoraphobia F41.0 and Morbid obesity E66.01 [place] [address] [address] Dec, Bilious vomiting with nausea R11.14 ; Co ughing R05 and Choking, subsequent encounter T17.308D [place] [address] [address] Dec, Morbid obesity E66.01 [place] [address] [address] Dec, Major depressive disorder, recurrent epi sode, moderate F33.1 and Panic disorder without agoraphobia F41.0 [place] [address] [address] Dec, [place] [address] [address] Dec, Major depressive disorder, recurrent epi sode, moderate F33.1 [place] [address] [address] Nov, Major depressive disorder, recurrent epi sode, moderate F33.1 ; Panic disorder without agoraphobia F41.0 and Morbid obesity E66.01 [place] [address] [address] Nov, Morbid obesity E66.01 [place] [address] [address] Nov, Major depressive disorder, recurrent epi sode, moderate F33.1 and Panic disorder without agoraphobia F41.0 [facility] [place] [address] [address] Nov, Allergic reaction, initial e ncounter T78.40XA and Morbid obesity E66.[address] [address] Nov, [address] [address] Nov, Morbid obesity E66.01 ; Swallowing probl em R13.10 and Hypertension, benign I10 [facility] [place] [id number] [address] [place] [address] Nov, Morbid obesity E66.01 ; COPD exacerbation J44.1 and Non- recurrent acute suppurative otitis media of left ear without spontaneous rupture of tympanic membrane H66.[address] [address] Nov, Onychomycosis B35.1 ; Neuropathy G62.9 a nd Fissure in skin of foot R23.[address] [address] October, Major depressive disorder, recurrent epi sode, moderate F33.1 ; Panic disorder without agoraphobia F41.0 and Morbid obesity E66.01 [facility] [address] [facility] [id number] [address] [place] [address] October, Viral upper respiratory trac t infection J06.9 [facility] [address] [address] October, [facility] [address] [address] October, Major depressive disorder, recurrent epi sode, moderate F33.1 and Panic disorder without agoraphobia F41.0 [facility] [address] [address] October, [facility] [address] [address] October, [facility] [address] [address] October, [facility] [address] [address] October, [place] [address] [address] October, [facility] [address] [address] October, [facility] [address] [address] October, Major depressive disorder, recurrent epi sode, moderate F33.1 and Panic disorder without agoraphobia F41.0 [facility] [address] [address] Sep, Morbid obesity E66.01 and Lumbar neuriti s M54.16 [facility] [address] [place] [id number] [place] [address] Sep, Panic disorder without agoraphobia F41.0 and Major depressive disorder, recurrent episode, moderate F33.1 [facility] [address] [facility] [id number] [address] [place] [address] Sep, Gastroenteritis K52.9 ; Low back pain M54.5 ; Other chronic pain G89.29 and Morbid obesity E66.01 [facility] [address] [address] Sep, Major depressive disorder, recurrent epi sode, moderate F33.1 ; Panic disorder without agoraphobia F41.0 and Social phobia F40.10 [place] [address] [address] Sep, Panic disorder without agoraphobia F41.0 [place] [address] [address] Sep, Panic disorder without agoraphobia F41.0 [place] [address] [address] Aug, Panic disorder without agoraphobia F41.0 ; Major depressive disorder, recurrent episode, moderate F33.1 ; Social phobia F40.10 ; Psychotic disorder F29 ; Tardive dyskinesia G24.01 and Morbid obesity E66.01 [place] [address] [address] Aug, Dysthymic disorder F34.1 and Psychotic d isorder F29 [place] [address] [address] Aug, Encounter for Medicare annual wellness e xam Z00.00 ; Morbid obesity E66.01 and Type 2 diabetes mellitus with diabetic neuropathic arthropathy E11.610 [place] [address] [address] Aug, Dysthymic disorder F34.1 and Psychotic d isorder F29 [place] [address] [address] Aug, Neuropathy G62.9 ; Onychomycosis B35.1 a nd Xerosis of skin L85.3 [place] [address] [address] Jul, [place] [address] [address] Jul, Mood disorder F39 ; Wheezing R06.2 ; Diego sanchez, initial encounter T17.308A and Coughing R05 [place] [address] [address] 07 Jul, 2018 Low back pain M54.5 [facility] [address] [facility] [id number] [address] [place] [address] Jun, Flu-like symptoms R68.89 ; B [place] 45.0-49.9, adult Z68.42 ; COPD exacerbation J44.1 and Acute bronchitis J20.9 [place] [address] [address] Jun, [place] [address] [address] May, [place] [address] [address] May, Onychomycosis B35.1 and Type 2 diabetes mellitus with diabetic neuropathic arthropathy E11.610 [place] [address] [address] May, Low back pain M54.5 and Edema leg R60.0 [place] [address] [address] May, BMI 45.0-49.9, adult Z68.42 ; Well woman exam with routine gynecological exam Z01.419 and Breast cancer screening Z12.[address] [address] Apr, Arthritis M19.90 [place] [address] [address] 16 Apr, 2018 Arthritis M19.90 and Otalgia of both ear s H92.03 [place] [address] [address] Feb, [place] [address] [address] 28 Feb, 2018 Low back pain M54.5 ; Other chronic pain G89.29 ; Exertional asthma J45.990 and Encounter for immunization Z23 [place] [address] [address] Feb, Skin fissures R23.4 ; Neuropathy G62.9 a nd Onychomycosis B35.1 [place] [address] [address] 05 Feb, 2018 Dysthymic disorder F34.1 [place] [address] [address] 04 Feb, 2018 [place] [address] [address] Jan, [place] [address] [address] Jan, Abrasion of right elbow, initial encount er S50.311A ; Abrasion, right knee, initial encounter S80.211A and Sprain of other ligament of right ankle, initial encounter S93.491A [place] [address] [address] Jan, [facility] [address] [facility] [id number] [address] [place] [address] Jan, Injury of left ankle, initia l encounter S99.912A ; Fall down stairs, initial encounter W10.8XXA and BMI 45.0-49.9, adult Z68.42 [place] [address] [address] Jan, COPD exacerbation J44.1 [place] [address] [address] 13 Jan, 2018 Dysfunction of both eustachian tubes H69 .83 [place] [address] [address] 08 Jan, 2018 Bronchitis J40 and Acute suppurative giovana tis media of left ear without spontaneous rupture of tympanic membrane, recurrence not specified H66.002 [place] [address] [address] Jan, [place] [address] [address] Jan, Bronchitis J40 and BMI 40.0-44.9, adult Z68.41 [place] [address] [address] Jan, [place] [address] [address] Dec, Gastric pain R10.9 [place] [address] [address] Dec, [place] [address] [address] Dec, History of illicit drug use Z87.898 ; Ne uropathy G62.9 ; COPD (chronic obstructive pulmonary disease) with chronic bronchitis J44.9 and Acute pain of right knee M25.561 [place] [address] [address] Nov, [place] [address] [address] Nov, Onychomycosis B35.1 and Contusion of lef t foot, subsequent encounter S90.32XD [address] [address] Nov, COPD exacerbation J44.1 [place] [address] [address] Sep, [place] [address] [address] Sep, Dysthymic disorder F34.1 ; Tobacco abuse Z72.0 ; Pain in right knee M25.561 ; Pain in left knee M25.562 ; Other chronic pain G89.29 and BMI 40.0- 44.9, adult Z68.[address] [address] 22 Aug, 2017 Major depressive disorder, recurrent epi sode, moderate F33.1 and Social phobia F40.[address] [address] 14 Aug, 2017 Dysthymic disorder F34.1 ; Non-pressure chronic ulcer of left thigh, unspecified ulcer stage L97.129 ; Tobacco abuse Z72.0 ; Mild chronic obstructive pulmonary disease J44.9 and Forgetfulness R68.[address] [address] 09 Aug, 2017 Onychomycosis B35.1 ; Fissure in skin of foot R23.4 and Foot callus L84 [facility] [place] [id number] [place] [address] Jul, Right medial knee pain M25.5 61 ; Upper respiratory tract infection, unspecified type J06.9 and BMI 40.0-44.9, adult Z68.41 [facility] [address] [address] 08 Jul, 2017 Nausea and vomiting, intract ability of vomiting not specified, unspecified vomiting type R11.2 ; Left ear pain H92.02 and Gastric pain R10.[address] [address] Apr, Encounter for immunization Z23 [address] [address] Apr, Onychomycosis B35.1 ; Xerosis of skin L8 5.3 ; Neuropathy G62.9 and Type 2 diabetes mellitus with diabetic neuropathic arthropathy E11.[address] [address] Jan, Onychomycosis B35.1 and Neuropathy G62.9 [facility] [address] [address] Dec, [facility] [address] [address] Dec, [facility] [address] [address] Nov, [facility] [address] [address] Aug, [facility] [address] [address] Aug, [facility] [address] [address] Jul, [facility] [address] [address] Jul, [facility] [address] [address] Jul, Decubitus ulcer of left thigh, stage 2 L 89.892 [place] [address] [address] 17 Jul, 2016 Decubitus ulcer of left thigh, stage 2 L 89.892 [place] [address] [address] 17 Jul, 2016 [facility] [address] [address] 15 Jul, 2016 Decubitus ulcer of left thigh, stage 2 L 89.892 [facility] [address] [address] 14 Jul, 2016 [facility] [address] [address] 13 Jul, 2016 Cellulitis of other specified site L03.8 18 ; Illicit drug use F19.90 and Decubitus ulcer of left thigh, stage 2 L89.892 [place] [address] [address] Jul, [place] [address] [address] Jul, Cellulitis of right breast N61.0 [place] [address] [address] Jun, [place] [address] [address] Jun, [place] [address] [address] Jun, Wheezing R06.2 and Arthralgia, unspecifi ed joint M25.50 [place] [address] [address] May, [place] [address] [address] May, [place] [address] [address] May, [place] [address] [address] May, Shortness of breath R06.02 [place] [address] [address] 02 May, 2016 Onychomycosis B35.1 and Fissure in skin of foot R23.4 [place] [address] [address] Apr, [facility] [address] [facility] [id number] [address] [place] [address] Apr, Dizziness R42 [place] [address] [address] 14 Apr, 2016 Shortness of breath R06.02 ; Essential h ypertension I10 ; Dizziness R42 and On home oxygen therapy Z99.81 [place] [address] [address] Apr, [facility] [address] [address] Apr, [facility] [address] [address] Apr, [facility] [address] [address] Apr, [facility] [address] [address] Apr, [facility] [address] [address] Apr, [facility] [address] [address] Apr, [facility] [address] [address] Mar, Mild chronic obstructive pulmonary disea se J44.9 [facility] [address] [address] Mar, [facility] [address] [address] Mar, Epigastric pain R10.13 ; Low back pain M 54.5 ; Other chronic pain G89.29 and Breast cancer screening Z12.39 [facility] [address] [address] Mar, [facility] [address] [address] Mar, [facility] [address] [address] Feb, [facility] [address] [address] Feb, [facility] [address] [address] Feb, Fissure in skin of foot R23.4 and Onycho mycosis B35.1 [facility] [address] [address] Jan, Agoraphobia F40.00 [facility] [address] [address] Dec, Agoraphobia F40.00 [facility] [address] [address] Dec, Mild persistent asthma without complicat ion J45.30 ; Dysthymic disorder F34.1 and Upper respiratory tract infection, unspecified type J06.9 [facility] [address] [address] Nov, Agoraphobia F40.00 [place] [address] [address] October, Agoraphobia F40.00 [place] [address] [address] Sep, Panic disorder without agoraphobia F41.0 ; Agoraphobia F40.00 and Dysthymic disorder F34.1 [place] [address] [address] Sep, Panic attacks F41.0 [facility] [address] [address] Sep, [facility] [address] [address] Sep, Panic disorder without agoraphobia F41.0 ; Varicose veins of both lower extremities I83.93 and Fatigue R53.83 [place] [address] [address] Sep, Fatigue R53.83 [facility] [address] [address] Sep, [facility] [address] [address] Aug, [facility] [address] [address] Aug, [place] [address] [address] Aug, Type 2 diabetes mellitus with diabetic n europathic arthropathy E11.610 [place] [address] [address] Aug, Panic disorder without agoraphobia F41.0 ; Agoraphobia F40.00 and Dysthymic disorder F34.1 [place] [address] [address] Aug, Shortness of breath R06.02 ; Panic attac ks F41.0 ; COPD (chronic obstructive pulmonary disease) J44.9 ; Tobacco abuse Z72.0 ; Family history of diabetes mellitus Z83.3 and Weight gain R63.5 [place] [address] [address] Aug, [place] [address] [address] Jul, [place] [address] [address] Jun, Onychomycosis B35.1 ; Neuropathy G62.9 a nd Impaired circulation I99.[address] [address] 09 Mar, 2015 Fissure in skin of foot R23.4 ; Onychomy cosis B35.1 and Type 2 diabetes mellitus with diabetic neuropathic arthropathy E11.610 [place] [address] [address] 18 Feb, 2015 Family history of coronary arteriosclero sis V17.3 [place] [address] [address] 15 Feb, 2015 Allergic rhinitis due to pollen 477.0 ; Unspecified breast screening V76.10 ; Anxiety 300.00 and Family history of coronary arteriosclerosis V17.3 [place] [address] [id number] [place] [address] Jan, [facility] [address] [id number] [place] [address] Dec, [facility] [address] [id number] [place] [address] Dec, Onychomycosis 110.1 and Skin fissures 70 9.8 [facility] [address] [id number] [place] [address] Sep, [facility] [address] [id number] [place] [address] Sep, [facility] [address] [id number] [place] [address] Aug, [facility] [address] [id number] [place] [address] Aug, [facility] [address] [id number] [place] [address] Jul, [facility] [address] [id number] [place] [address] Jul, [facility] [address] [id number] [place] [address] Jun, [facility] [address] [id number] [place] [address] Jun, [facility] [address] [id number] [place] [address] Jun, [facility] [place] [facility] [address] [id number] [place] [address] Jun, [facility] [address] [id number] [place] [address] Jun, [facility] [place] [facility] [address] [id number] [place] [address] May, [facility] [place] [facility] [address] [id number] [place] [address] May, [facility] [address] [id number] [place] [address] May, [facility] [place] [facility] [address] [id number] [place] [address] May, [facility] [place] [facility] [address] [id number] [place] [address] May, [facility] [place] [facility] [address] [id number] [place] [address] May, [facility] [place] [facility] [address] [id number] [place] [address] May, [facility] [place] [facility] [address] [id number] [place] [address] May, [facility] [place] [facility] [address] [id number] [place] [address] Apr, [facility] [place] [facility] [address] [id number] [place] [address] Apr, [facility] [place] [facility] [address] [id number] [place] [address] Apr, [facility] [place] [facility] [address] [id number] [place] [address] Apr, [facility] [address] [id number] [place] [address] Apr, [facility] [address] [id number] [place] [address] Apr, [facility] [address] [id number] [place] [address] Apr, [facility] [address] [id number] [place] [address] Apr, [facility] [id number] [place] [address] Apr, [facility] [address] [id number] [place] [address] Apr, [facility] [address] [id number] [place] [address] Mar, [facility] [address] [facility] [id number] [place] [address] Mar, 2013 [facility] [address] [facility] [id number] [place] [address] Mar, [facility] [address] [facility] [id number] [place] [address] Mar, [facility] [address] [id number] [place] [address] Mar, [facility] [address] [facility] [id number] [place] [address] Mar, 2013 [facility] [address] [facility] [id number] [place] [address] Mar, [facility] [address] [id number] [place] [address] Mar, 2013 [facility] [address] [id number] [place] [address] Mar, [facility] [place] [facility] [address] [id number] [place] [address] Mar, [facility] [place] [facility] [address] [id number] [place] [address] Mar, [facility] [place] [facility] [address] [id number] [place] [address] Mar, 2013 [facility] [place] [facility] [address] [id number] [place] [address] Mar, [facility] [place] [facility] [address] [facility] [id number] [place] [address] Mar, 2013 [facility] [place] [facility] [address] [facility] [id number] [place] [address] Mar, [facility] [place] [facility] [address] [facility] [id number] [place] [address] Mar, [facility] [place] [facility] [address] [id number] [place] [address] Mar, [facility] [place] [facility] [address] [id number] [place] [address] 16 Mar, 2013 [facility] [place] [facility] [address] [facility] [id number] [place] [address] 16 Mar, 2013 [facility] [place] [facility] [address] [facility] [id number] [place] [address] 15 Mar, 2013 [facility] [place] [facility] [address] [id number] [place] [address] 14 Mar, 2013 [facility] [place] [facility] [address] [facility] [id number] [place] [address] 14 Mar, 2013 [facility] [place] [facility] [address] [facility] [id number] [place] [address] 14 Mar, 2013 [facility] [place] [facility] [address] [id number] [place] [address] 14 Mar, 2013 [facility] [place] [facility] [address] [id number] [place] [address] 09 Mar, 2013 [facility] [place] [facility] [address] [id number] [place] [address] 09 Mar, 2013 [facility] [place] [facility] [address] [id number] [place] [address] 09 Mar, 2013 [facility] [place] [facility] [address] [id number] [place] [address] 09 Mar, 2013 [facility] [place] [facility] [address] [id number] [place] [address] 30 Sep, 2013 [facility] [place] [facility] [address] [id number] [place] [address] 30 Sep, 2013 [facility] [place] [facility] [address] [id number] [place] [address] 30 Sep, 2013 [facility] [place] [facility] [address] [id number] [place] [address] 30 Sep, 2013 [facility] [place] [facility] [address] [id number] [place] [address] 26 Sep, 2013 [facility] [place] [facility] [address] [id number] [place] [address] 26 Sep, 2013 [facility] [place] [facility] [address] [id number] [place] [address] 09 Feb, 2013 [facility] [place] [facility] [address] [id number] [place] [address] Feb, 2013 [facility] [place] [facility] [address] [facility] [id number] [place] [address] Feb, 2013 [facility] [place] [facility] [address] [id number] [place] [address] Feb, 2013 [facility] [place] [facility] [address] [facility] [id number] [place] [address] Feb, 2013 [facility] [place] [facility] [address] [id number] [place] [address] Feb, 2013 [facility] [place] [facility] [address] [id number] [place] [address] Jan, [facility] [place] [facility] [address] [id number] [place] [address] Jan, [facility] [place] [facility] [address] [id number] [place] [address] Jan, [facility] [place] [facility] [address] [id number] [place] [address] Jan, [facility] [place] [facility] [address] [id number] [place] [address] Jan, [facility] [place] [facility] [address] [id number] [place] [address] Jan, [facility] [place] [facility] [address] [id number] [place] [address] Jan, [facility] [place] [facility] [address] [id number] [place] [address] Jan, [facility] [place] [facility] [address] [id number] [place] [address] Jan, [facility] [place] [facility] [address] [id number] [place] [address] Jan, [facility] [place] [facility] [address] [id number] [place] [address] Jan, [facility] [place] [facility] [address] [id number] [facility] [place] [address] Jan, [facility] [place] [facility] [address] [facility] [id number] [facility] [place] [address] Jan, [facility] [place] [facility] [address] [facility] [id number] [facility] [place] [address] Dec, [facility] [place] [facility] [address] [facility] [id number] [facility] [place] [address] Dec, [facility] [place] [facility] [address] [facility] [id number] [place] [address] Dec, [facility] [place] [facility] [address] [facility] [id number] [facility] [place] [address] Dec, [facility] [place] [facility] [address] [facility] [id number] [place] [address] Dec, [facility] [place] [facility] [address] [id number] [place] [address] Dec, [facility] [place] [facility] [address] [facility] [id number] [place] [address] Dec, [facility] [place] [facility] [address] [facility] [id number] [place] [address] Dec, [facility] [place] [facility] [address] [facility] [id number] [place] [address] Dec, [facility] [place] [facility] [address] [id number] [place] [address] Dec, [facility] [place] [facility] [address] [facility] [id number] [place] [address] Dec, [facility] [place] [facility] [address] [facility] [id number] [place] [address] Dec, [facility] [place] [facility] [address] [facility] [id number] [place] [address] Dec, [facility] [place] [facility] [address] [facility] [id number] [place] [address] Dec, [facility] [place] [facility] [address] [facility] [id number] [facility] [place] [address] Dec, [facility] [place] [facility] [address] [facility] [id number] [facility] [place] [address] Dec, [facility] [place] [facility] [address] [facility] [id number] [facility] [place] [address] Dec, [facility] [place] [facility] [address] [id number] [place] [address] Dec, [facility] [place] [facility] [address] [facility] [id number] [facility] [place] [address] Nov, [facility] [place] [facility] [address] [facility] [id number] [facility] [place] [address] Nov, [facility] [place] [facility] [address] [facility] [id number] [place] [address] Nov, [facility] [place] [facility] [address] [id number] [place] [address] Nov, [facility] [place] [facility] [address] [id number] [place] [address] Nov, [facility] [place] [facility] [address] [facility] [id number] [place] [address] Nov, [facility] [place] [facility] [address] [id number] [place] [address] Nov, [facility] [place] [facility] [address] [id number] [place] [address] Nov, [facility] [place] [facility] [address] [id number] [place] [address] Nov, [facility] [place] [facility] [address] [facility] [id number] [facility] [place] [address] Nov, [facility] [place] [facility] [address] [facility] [id number] [place] [address] Nov, [facility] [place] [facility] [address] [facility] [id number] [place] [address] Nov, [facility] [place] [facility] [address] [id number] [place] [address] Nov, [facility] [place] [facility] [address] [id number] [place] [address] Nov, [facility] [place] [facility] [address] [id number] [place] [address] Nov, [facility] [place] [facility] [address] [id number] [place] [address] Nov, [facility] [place] [facility] [address] [id number] [place] [address] Nov, [facility] [place] [facility] [address] [id number] [place] [address] Nov, [facility] [place] [facility] [address] [id number] [place] [address] Nov, [facility] [place] [facility] [address] [id number] [place] [address] Nov, [facility] [place] [facility] [address] [id number] [place] [address] October, [facility] [place] [facility] [address] [id number] [place] [address] October, [facility] [place] [facility] [address] [id number] [place] [address] October, [facility] [place] [facility] [address] [id number] [place] [address] October, [facility] [place] [facility] [address] [id number] [place] [address] Sep, [facility] [place] [facility] [address] [id number] [place] [address] Sep, [facility] [place] [facility] [address] [id number] [place] [address] Sep, [facility] [place] [facility] [address] [id number] [place] [address] Sep, [facility] [place] [facility] [address] [id number] [place] [address] Sep, [facility] [place] [facility] [address] [id number] [place] [address] Sep, [facility] [place] [facility] [address] [facility] [id number] [place] [address] Sep, [facility] [place] [facility] [address] [facility] [id number] [place] [address] Sep, [facility] [place] [facility] [address] [id number] [place] [address] Sep, [facility] [place] [facility] [address] [id number] [place] [address] Aug, [facility] [place] [facility] [address] [facility] [id number] [place] [address] Aug, [facility] [place] [facility] [address] [id number] [place] [address] Aug, [facility] [place] [facility] [address] [id number] [place] [address] Aug, [facility] [place] [facility] [address] [id number] [place] [address] Aug, [facility] [place] [facility] [address] [id number] [place] [address] Aug, [facility] [place] [facility] [address] [id number] [place] [address] Aug, [facility] [place] [facility] [address] [id number] [place] [address] Aug, [facility] [place] [facility] [address] [id number] [place] [address] Jul, [facility] [place] [facility] [address] [id number] [place] [address] Jul, [facility] [place] [facility] [address] [facility] [id number] [place] [address] Jun, [facility] [place] [facility] [address] [id number] [place] [address] Jun, [facility] [place] [facility] [address] [id number] [place] [address] Jun, [facility] [place] [facility] [address] [id number] [place] [address] Jun, [facility] [place] [facility] [address] [id number] [place] [address] Jun, [facility] [place] [facility] [address] [id number] [place] [address] Jun, [facility] [place] [facility] [address] [id number] [place] [address] Jun, [facility] [place] [facility] [address] [id number] [place] [address] Jun, [facility] [place] [facility] [address] [id number] [place] [address] Jun, [facility] [place] [facility] [address] [id number] [place] [address] Jun, [facility] [place] [facility] [address] [id number] [place] [address] Jun, [facility] [place] [facility] [address] [id number] [place] [address] Jun, [facility] [place] [facility] [address] [id number] [place] [address] May, [facility] [place] [facility] [address] [id number] [place] [address] May, [facility] [place] [facility] [address] [id number] [place] [address] May, [facility] [place] [facility] [address] [id number] [place] [address] May, [facility] [place] [facility] [address] [id number] [place] [address] May, [facility] [place] [facility] [address] [id number] [place] [address] May, [facility] [place] [facility] [address] [id number] [place] [address] May, [facility] [place] [facility] [address] [id number] [place] [address] May, [facility] [place] [facility] [address] [id number] [place] [address] May, [facility] [place] [facility] [address] [id number] [place] [address] May, [facility] [place] [facility] [address] [id number] [place] [address] May, [facility] [place] [facility] [address] [id number] [place] [address] May, [facility] [place] [facility] [address] [id number] [place] [address] May, [facility] [place] [facility] [address] [id number] [place] [address] Apr, [facility] [place] [facility] [address] [id number] [place] [address] Apr, [facility] [place] [facility] [address] [id number] [place] [address] Mar, [facility] [place] [facility] [address] [id number] [place] [address] Mar, [facility] [place] [facility] [address] [id number] [place] [address] 24 Feb, 2013 [facility] [place] [facility] [address] [id number] [place] [address] Feb, [facility] [place] [facility] [address] [id number] [place] [address] Feb, [facility] [place] [facility] [address] [id number] [place] [address] Feb, [facility] [place] [facility] [address] [id number] [place] [address] Jan, [facility] [place] [facility] [address] [id number] [place] [address] Jan, [facility] [place] [facility] [address] [id number] [place] [address] Jan, [facility] [place] [facility] [address] [id number] [place] [address] Jan, [facility] [address] [id number] [place] [address] Jan, [facility] [place] [facility] [address] [id number] [place] [address] Jan, [facility] [place] [facility] [address] [id number] [place] [address] Dec, [facility] [place] [facility] [address] [id number] [place] [address] Dec, [facility] [place] [facility] [address] [id number] [place] [address] Dec, [facility] [place] [facility] [address] [id number] [place] [address] Dec, [facility] [place] [facility] [address] [id number] [place] [address] Nov, [facility] [place] [facility] [address] [id number] [place] [address] October, [facility] [place] [facility] [address] [id number] [place] [address] October, [facility] [place] [facility] [address] [id number] [place] [address] October, [facility] [place] [facility] [address] [id number] [place] [address] Sep, [facility] [place] [facility] [address] [id number] [place] [address] Sep, [facility] [place] [facility] [address] [id number] [place] [address] Jun, [facility] [place] [facility] [address] [id number] [place] [address] Jun, [facility] [place] [facility] [address] [id number] [place] [address] Jun, [facility] [place] [facility] [address] [id number] [place] [address] Apr, [facility] [place] [facility] [address] [id number] [place] [address] Apr, [facility] [place] [facility] [address] [id number] [place] [address] Apr, [facility] [place] [facility] [address] [id number] [place] [address] Apr, [facility] [place] [facility] [address] [id number] [place] [address] Mar, [facility] [place] [facility] [address] [id number] [place] [address] Mar, [facility] [place] [facility] [address] [id number] [facility] [place] [address] Mar, [facility] [place] [facility] [address] [id number] [place] [address] Mar, [facility] [place] [facility] [address] [id number] [place] [address] Feb, [facility] [place] [facility] [address] [id number] [place] [address] Feb, [facility] [place] [facility] [address] [id number] [place] [address] Feb, [facility] [place] [facility] [address] [id number] [place] [address] Jan, [facility] [place] [facility] [address] [id number] [place] [address] Jan, [facility] [place] [facility] [address] [id number] [place] [address] Jan, [facility] [place] [facility] [address] [id number] [place] [address] Jan, [facility] [place] [facility] [address] [id number] [place] [address] Dec, [facility] [place] [facility] [address] [id number] [place] [address] Dec, [facility] [place] [facility] [address] [id number] [place] [address] Nov, [facility] [place] [facility] [address] [id number] [place] [address] Nov, [facility] [place] [facility] [address] [id number] [place] [address] October, [facility] [place] [facility] [address] [id number] [place] [address] October, [facility] [place] [facility] [address] [id number] [place] [address] October, [facility] [place] [facility] [address] [id number] [place] [address] Sep, [facility] [place] [facility] [address] [id number] [place] [address] Sep, [facility] [place] [facility] [address] [id number] [place] [address] Sep, [facility] [place] [facility] [address] [id number] [place] [address] Aug, [facility] [place] [facility] [address] [id number] [place] [address] Aug, [facility] [place] [facility] [address] [id number] [place] [address] Aug, [facility] [place] [facility] [address] [id number] [place] [address] Aug, [facility] [place] [facility] [address] [id number] [place] [address] Aug, [facility] [place] [facility] [address] [id number] [place] [address] Jul, [facility] [place] [facility] [address] [id number] [place] [address] 16 Jul, 2011 [facility] [place] [facility] [address] [id number] [place] [address] 13 Jul, 2011 [facility] [place] [facility] [address] [id number] [place] [address] 09 Jul, 2011 [facility] [place] [facility] [address] [id number] [place] [address] 07 Jul, 2011 [facility] [place] [facility] [address] [id number] [place] [address] Jul, [facility] [place] [facility] [address] [id number] [place] [address] Jul, [facility] [place] [facility] [address] [id number] [place] [address] Jul, [facility] [place] [facility] [address] [id number] [place] [address] Jun, [facility] [place] [facility] [address] [id number] [place] [address] Jun, [facility] [place] [facility] [address] [id number] [place] [address] May, [facility] [address] [id number] [place] [address] May, [facility] [address] [id number] [place] [address] May, [facility] [address] [id number] [place] [address] May, [facility] [address] [id number] [place] [address] Apr, [facility] [address] [id number] [place] [address] Apr, [facility] [address] [id number] [place] [address] Apr, [facility] [address] [id number] [place] [address] Mar, [facility] [address] [id number] [place] [address] Mar, [facility] [address] [id number] [place] [address] Mar, [facility] [address] [id number] [place] [address] Mar, [facility] [id number] [place] [address] Dec, [facility] [id number] [place] [address] October, [facility] [id number] [place] [address] May, [facility] [id number] [place] [address] May, [facility] [id number] [place] [address] May, [facility] [id number] [place] [address] May, [facility] [id number] [place] [address] Mar, [facility] [id number] [place] [address] Mar, [facility] [id number] [place] [address] May, [facility] [id number] [place] [address] May, [facility] [id number] [place] [address] May, [facility] [id number] [place] [address] May, [facility] [id number] [place] [address] Apr, [facility] [id number] [place] [address] Apr, [facility] [id number] [place] [address] October, IMMUNIZATIONS No Known Immunizations SOCIAL HISTORY Never Assessed REASON FOR VISIT PLAN OF CARE VITAL SIGNS MEDICATIONS Unknown Medications RESULTS No Results PROCEDURES No Known procedures INSTRUCTIONS MEDICATIONS ADMINISTERED No Known Medications MEDICAL (GENERAL) HISTORY Type Description Date Medical History Anxiety disorder Medical History depression Medical History acid reflux Medical History asthma Medical History copd Medical History [facility] History hyperlipidemia Surgical History carpal tunnel release [...]
--- OUTSIDE RECORDS SUMMARY | 2020-01-13 12:14 | XMS REPORT ---
Author Author Monique RAHMAN [facility] [address] Address [address] [place] [address] Care Team Providers Care Nuclear Medical Technologist Name Role Phone RASHEED RAHMAN Unavailable PROBLEMS Type Condition ICD9-CM Code PAZ62-GQ Code Onset Dates Condition S tatus SNOMED Code Problem MRSA (methicillin resistant staph aureus) culture positive Z22.322 Active 103450328 Problem History of illicit drug use Z87.898 Ac tive 943512716 Problem Snoring R06.83 Active 07150997 Problem Dysthymic disorder F34.1 Active 7 0570253 Problem Impaired circulation I99.9 Active 03651729 Problem Arthritis M19.90 Active 6011858 Problem 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 Active 454178581 Problem Mild persistent asthma without complication J45.30 Active 136233071 Problem Varicose veins of both lower extremities I83.93 Active 08436790 Problem On home oxygen therapy Z99.81 Active 886762329214 Problem Mild chronic obstructive pulmonary disease J44.9 Active 284798321 Problem Neuropathy G62.9 Active 496922877 Problem Essential hypertension I10 Active 80764915 Problem Social phobia F40.10 Active 839384 02 Problem Major depressive disorder, recurrent episode, moderate F33.1 Active 220403799 Problem Mood disorder F39 Active 079979 05 Problem Psychotic disorder F29 Active 6 1982259 Problem Hypertension, benign I10 Active 02871757 Problem Body mass index (BMI) 40.0-44.9, adult Z68.41 Active 633716375 Problem Panic disorder without agoraphobia F41.0 Active 31830844 Problem Unspecified psychosis not du e to a substance or known physiological condition F29 Active 255844978 Problem Agoraphobia F40.00 Active 92573696 Problem Fatigue R53.83 Active 21101632 Problem Onychomycosis B35.1 Active 636589 008 Problem Major depressive disorder in full remission F32.5 Active 43216049 Problem Slow transit constipation K59.01 Acti ve 65497102 Problem Chronic obstructive pulmonary disease, unspecified COPD ty pe J44.9 Active 01256475 ALLERGIES No Information ENCOUNTERS Encounter Location Date Diagnosis [place] [address] [address] Aug, [place] [address] [address] Aug, [place] [address] [address] Jul, [place] [address] [address] Jul, [place] [address] [address] Jul, Unspecified psychosis not due to a subst ance or known physiological condition F29 ; Chronic obstructive pulmonary disease, unspecified COPD type J44.9 and Body mass index (BMI) 40.0-44.9, adult Z68.41 [place] [address] [address] Jun, [place] [address] [address] Jun, Morbid obesity E66.01 [place] [address] [address] May, Morbid obesity E66.01 [place] [address] [address] May, Encounter for immunization Z23 [place] [address] [address] May, Major depressive disorder, recurrent epi sode, moderate F33.1 ; Panic disorder without agoraphobia F41.0 and Morbid obesity E66.01 [place] [address] [address] May, Major depressive disorder in full remiss ion F32.5 and Panic disorder without agoraphobia F41.[address] [address] Apr, Morbid obesity E66.[address] [address] Apr, Slow transit constipation K59.01 and Lois lulitis of left lower extremity L03.[address] [address] Apr, Morbid obesity E66.[address] [address] Apr, [address] [address] Apr, Major depressive disorder, recurrent epi sode, moderate F33.1 and Panic disorder without agoraphobia F41.[address] [address] Mar, Viral upper respiratory tract infection J06.[address] [address] Mar, Bronchitis J40 and Encounter for immuniz ation Z23 [address] [address] Mar, Morbid obesity E66.[address] [address] Feb, Major depressive disorder, recurrent epi sode, moderate F33.1 and Panic disorder without agoraphobia F41.[address] [address] Feb, Morbid obesity E66.[address] [address] 06 Feb, 2019 Onychomycosis B35.1 ; Type 2 diabetes me llitus with diabetic neuropathic arthropathy E11.610 and Xerosis of skin L85.[address] [id number] [place] [address] Feb, Major depressive disorder, recurrent epi sode, moderate F33.1 ; Panic disorder without agoraphobia F41.0 and Morbid obesity E66.01 [place] [address] [address] Jan, Major depressive disorder in full remiss ion F32.5 and Panic disorder without agoraphobia F41.0 [place] [address] [address] Jan, Pneumonia of both lower lobes due to inf ectious organism J18.1 and Morbid obesity E66.01 [place] [address] [address] Jan, [place] [address] [address] Jan, Major depressive disorder in full remiss ion F32.5 and Panic disorder without agoraphobia F41.0 [place] [address] [address] Jan, [place] [address] [address] Jan, Major depressive disorder, recurrent epi sode, moderate F33.1 ; Panic disorder without agoraphobia F41.0 and Morbid obesity E66.01 [place] [address] [address] Dec, Bilious vomiting with nausea R11.14 ; Co ughing R05 and Choking, subsequent encounter T17.308D [place] [address] [address] Dec, Morbid obesity E66.01 [place] [address] [address] Dec, Major depressive disorder, recurrent epi sode, moderate F33.1 and Panic disorder without agoraphobia F41.0 [place] [address] [address] Dec, [place] [address] [address] Dec, Major depressive disorder, recurrent epi sode, moderate F33.1 [place] [address] [address] Nov, Major depressive disorder, recurrent epi sode, moderate F33.1 ; Panic disorder without agoraphobia F41.0 and Morbid obesity E66.01 [place] [address] [address] Nov, Morbid obesity E66.01 [place] [address] [address] Nov, Major depressive disorder, recurrent epi sode, moderate F33.1 and Panic disorder without agoraphobia F41.0 [facility] [place] [address] [address] Nov, Allergic reaction, initial e ncounter T78.40XA and Morbid obesity E66.[address] [address] Nov, [address] [address] Nov, Morbid obesity E66.01 ; Swallowing probl em R13.10 and Hypertension, benign I10 [facility] IN [place] [id number] [place] [address] Nov, Morbid obesity E66.01 ; COPD exacerbation J44.1 and Non- recurrent acute suppurative otitis media of left ear without spontaneous rupture of tympanic membrane H66.[address] [address] Nov, Onychomycosis B35.1 ; Neuropathy G62.9 a nd Fissure in skin of foot R23.[address] [address] October, Major depressive disorder, recurrent epi sode, moderate F33.1 ; Panic disorder without agoraphobia F41.0 and Morbid obesity E66.01 [facility] IN [facility] [address] [facility] [id number] [address] [place] [address] October, Viral upper respiratory trac t infection J06.9 [facility] [address] [address] October, [facility] [address] [address] October, Major depressive disorder, recurrent epi sode, moderate F33.1 and Panic disorder without agoraphobia F41.0 [facility] [address] [address] October, [facility] [address] [address] October, [facility] [address] [address] October, [facility] [address] [address] October, [place] [address] [address] October, [facility] [address] [address] October, [facility] [address] [address] October, Major depressive disorder, recurrent epi sode, moderate F33.1 and Panic disorder without agoraphobia F41.0 [facility] [address] [address] Sep, Morbid obesity E66.01 and Lumbar neuriti s M54.16 [facility] [address] [place] [id number] [place] [address] Sep, Panic disorder without agoraphobia F41.0 and Major depressive disorder, recurrent episode, moderate F33.1 [facility] [address] [facility] [id number] [address] [place] [address] Sep, Gastroenteritis K52.9 ; Low back pain M54.5 ; Other chronic pain G89.29 and Morbid obesity E66.01 [facility] [address] [address] Sep, Major depressive disorder, recurrent epi sode, moderate F33.1 ; Panic disorder without agoraphobia F41.0 and Social phobia F40.10 [place] [address] [address] Sep, Panic disorder without agoraphobia F41.0 [place] [address] [address] Sep, Panic disorder without agoraphobia F41.0 [place] [address] [address] Aug, Panic disorder without agoraphobia F41.0 ; Major depressive disorder, recurrent episode, moderate F33.1 ; Social phobia F40.10 ; Psychotic disorder F29 ; Tardive dyskinesia G24.01 and Morbid obesity E66.01 [place] [address] [address] Aug, Dysthymic disorder F34.1 and Psychotic d isorder F29 [place] [address] [address] Aug, Encounter for Medicare annual wellness e xam Z00.00 ; Morbid obesity E66.01 and Type 2 diabetes mellitus with diabetic neuropathic arthropathy E11.610 [place] [address] [address] Aug, Dysthymic disorder F34.1 and Psychotic d isorder F29 [place] [address] [address] Aug, Neuropathy G62.9 ; Onychomycosis B35.1 a nd Xerosis of skin L85.3 [place] [address] [address] Jul, [place] [address] [address] Jul, Mood disorder F39 ; Wheezing R06.2 ; Diego sanchez, initial encounter T17.308A and Coughing R05 [place] [address] [address] 07 Jul, 2018 Low back pain M54.5 [facility] [address] [facility] [id number] [address] [place] [address] Jun, Flu-like symptoms R68.89 ; B [place] 45.0-49.9, adult Z68.42 ; COPD exacerbation J44.1 and Acute bronchitis J20.9 [place] [address] [address] Jun, [place] [address] [address] May, [place] [address] [address] May, Onychomycosis B35.1 and Type 2 diabetes mellitus with diabetic neuropathic arthropathy E11.610 [place] [address] [address] May, Low back pain M54.5 and Edema leg R60.0 [place] [address] [address] May, BMI 45.0-49.9, adult Z68.42 ; Well woman exam with routine gynecological exam Z01.419 and Breast cancer screening Z12.[address] [address] Apr, Arthritis M19.90 [place] [address] [address] 16 Apr, 2018 Arthritis M19.90 and Otalgia of both ear s H92.03 [place] [address] [address] Feb, [place] [address] [address] 28 Feb, 2018 Low back pain M54.5 ; Other chronic pain G89.29 ; Exertional asthma J45.990 and Encounter for immunization Z23 [place] [address] [address] Feb, Skin fissures R23.4 ; Neuropathy G62.9 a nd Onychomycosis B35.1 [place] [address] [address] 05 Feb, 2018 Dysthymic disorder F34.1 [place] [address] [address] 04 Feb, 2018 [place] [address] [address] Jan, [place] [address] [address] Jan, Abrasion of right elbow, initial encount er S50.311A ; Abrasion, right knee, initial encounter S80.211A and Sprain of other ligament of right ankle, initial encounter S93.491A [place] [address] [address] Jan, [facility] [address] [facility] [id number] [address] [place] [address] Jan, Injury of left ankle, initia l encounter S99.912A ; Fall down stairs, initial encounter W10.8XXA and BMI 45.0-49.9, adult Z68.42 [place] [address] [address] Jan, COPD exacerbation J44.1 [place] [address] [address] 13 Jan, 2018 Dysfunction of both eustachian tubes H69 .83 [place] [address] [address] 08 Jan, 2018 Bronchitis J40 and Acute suppurative giovana tis media of left ear without spontaneous rupture of tympanic membrane, recurrence not specified H66.002 [place] [address] [address] Jan, [place] [address] [address] Jan, Bronchitis J40 and BMI 40.0-44.9, adult Z68.41 [place] [address] [address] Jan, [place] [address] [address] Dec, Gastric pain R10.9 [place] [address] [address] Dec, [place] [address] [address] Dec, History of illicit drug use Z87.898 ; Ne uropathy G62.9 ; COPD (chronic obstructive pulmonary disease) with chronic bronchitis J44.9 and Acute pain of right knee M25.561 [place] [address] [address] Nov, [place] [address] [address] Nov, Onychomycosis B35.1 and Contusion of lef t foot, subsequent encounter S90.32XD [address] [address] Nov, COPD exacerbation J44.1 [place] [address] [address] Sep, [place] [address] [address] Sep, Dysthymic disorder F34.1 ; Tobacco abuse Z72.0 ; Pain in right knee M25.561 ; Pain in left knee M25.562 ; Other chronic pain G89.29 and BMI 40.0- 44.9, adult Z68.[address] [address] 22 Aug, 2017 Major depressive disorder, recurrent epi sode, moderate F33.1 and Social phobia F40.[address] [address] 14 Aug, 2017 Dysthymic disorder F34.1 ; Non-pressure chronic ulcer of left thigh, unspecified ulcer stage L97.129 ; Tobacco abuse Z72.0 ; Mild chronic obstructive pulmonary disease J44.9 and Forgetfulness R68.[address] [address] 09 Aug, 2017 Onychomycosis B35.1 ; Fissure in skin of foot R23.4 and Foot callus L84 [facility] [place] [id number] [address] [place] [address] Jul, Right medial knee pain M25.5 61 ; Upper respiratory tract infection, unspecified type J06.9 and BMI 40.0-44.9, adult Z68.41 [facility] [address] [address] 08 Jul, 2017 Nausea and vomiting, intract ability of vomiting not specified, unspecified vomiting type R11.2 ; Left ear pain H92.02 and Gastric pain R10.[address] [address] Apr, Encounter for immunization Z23 [address] [address] Apr, Onychomycosis B35.1 ; Xerosis of skin L8 5.3 ; Neuropathy G62.9 and Type 2 diabetes mellitus with diabetic neuropathic arthropathy E11.[address] [address] Jan, Onychomycosis B35.1 and Neuropathy G62.9 [facility] [address] [address] Dec, [facility] [address] [address] Dec, [facility] [address] [address] Nov, [facility] [address] [address] Aug, [facility] [address] [address] Aug, [facility] [address] [address] Jul, [facility] [address] [address] Jul, [facility] [address] [address] Jul, Decubitus ulcer of left thigh, stage 2 L 89.892 [place] [address] [address] 17 Jul, 2016 Decubitus ulcer of left thigh, stage 2 L 89.892 [place] [address] [address] 17 Jul, 2016 [facility] [address] [address] 15 Jul, 2016 Decubitus ulcer of left thigh, stage 2 L 89.892 [facility] [address] [address] 14 Jul, 2016 [facility] [address] [address] 13 Jul, 2016 Cellulitis of other specified site L03.8 18 ; Illicit drug use F19.90 and Decubitus ulcer of left thigh, stage 2 L89.892 [place] [address] [address] Jul, [place] [address] [address] Jul, Cellulitis of right breast N61.0 [place] [address] [address] Jun, [place] [address] [address] Jun, [place] [address] [address] Jun, Wheezing R06.2 and Arthralgia, unspecifi ed joint M25.50 [place] [address] [address] May, [place] [address] [address] May, [place] [address] [address] May, [place] [address] [address] May, Shortness of breath R06.02 [place] [address] [address] 02 May, 2016 Onychomycosis B35.1 and Fissure in skin of foot R23.4 [place] [address] [address] Apr, [facility] [address] [facility] [id number] [address] [place] [address] Apr, Dizziness R42 [place] [address] [address] 14 Apr, 2016 Shortness of breath R06.02 ; Essential h ypertension I10 ; Dizziness R42 and On home oxygen therapy Z99.81 [place] [address] [address] Apr, [facility] [address] [address] Apr, [facility] [address] [address] Apr, [facility] [address] [address] Apr, [facility] [address] [address] Apr, [facility] [address] [address] Apr, [facility] [address] [address] Apr, [facility] [address] [address] Mar, Mild chronic obstructive pulmonary disea se J44.9 [facility] [address] [address] Mar, [facility] [address] [address] Mar, Epigastric pain R10.13 ; Low back pain M 54.5 ; Other chronic pain G89.29 and Breast cancer screening Z12.39 [facility] [address] [address] Mar, [facility] [address] [address] Mar, [facility] [address] [address] Feb, [facility] [address] [address] Feb, [facility] [address] [address] Feb, Fissure in skin of foot R23.4 and Onycho mycosis B35.1 [facility] [address] [address] Jan, Agoraphobia F40.00 [facility] [address] [address] Dec, Agoraphobia F40.00 [facility] [address] [address] Dec, Mild persistent asthma without complicat ion J45.30 ; Dysthymic disorder F34.1 and Upper respiratory tract infection, unspecified type J06.9 [facility] [address] [address] Nov, Agoraphobia F40.00 [place] [address] [address] October, Agoraphobia F40.00 [place] [address] [address] Sep, Panic disorder without agoraphobia F41.0 ; Agoraphobia F40.00 and Dysthymic disorder F34.1 [place] [address] [address] Sep, Panic attacks F41.0 [facility] [address] [address] Sep, [facility] [address] [address] Sep, Panic disorder without agoraphobia F41.0 ; Varicose veins of both lower extremities I83.93 and Fatigue R53.83 [place] [address] [address] Sep, Fatigue R53.83 [facility] [address] [address] Sep, [facility] [address] [address] Aug, [facility] [address] [address] Aug, [place] [address] [address] Aug, Type 2 diabetes mellitus with diabetic n europathic arthropathy E11.610 [place] [address] [address] Aug, Panic disorder without agoraphobia F41.0 ; Agoraphobia F40.00 and Dysthymic disorder F34.1 [place] [address] [address] Aug, Shortness of breath R06.02 ; Panic attac ks F41.0 ; COPD (chronic obstructive pulmonary disease) J44.9 ; Tobacco abuse Z72.0 ; Family history of diabetes mellitus Z83.3 and Weight gain R63.5 [place] [address] [address] Aug, [place] [address] [address] Jul, [place] [address] [address] Jun, Onychomycosis B35.1 ; Neuropathy G62.9 a nd Impaired circulation I99.[address] [address] 09 Mar, 2015 Fissure in skin of foot R23.4 ; Onychomy cosis B35.1 and 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.610 [place] [address] [address] 18 Feb, 2015 Family history of coronary arteriosclero sis V17.3 [place] [address] [address] 15 Feb, 2015 Allergic rhinitis due to pollen 477.0 ; Unspecified breast screening V76.10 ; Anxiety 300.00 and Family history of coronary arteriosclerosis V17.3 [place] [address] [id number] [place] [address] Jan, [facility] [address] [id number] [place] [address] Dec, [facility] [address] [id number] [place] [address] Dec, Onychomycosis 110.1 and Skin fissures 70 9.8 [facility] [address] [id number] [place] [address] Sep, [facility] [address] [id number] [place] [address] Sep, [facility] [address] [id number] [place] [address] Aug, [facility] [address] [id number] [place] [address] Aug, [facility] [address] [id number] [place] [address] Jul, [facility] [address] [id number] [place] [address] Jul, [facility] [address] [id number] [place] [address] Jun, [facility] [address] [id number] [place] [address] Jun, [facility] [address] [id number] [place] [address] Jun, [facility] [place] [facility] [address] [id number] [place] [address] Jun, [facility] [address] [id number] [place] [address] Jun, [facility] [place] [facility] [address] [id number] [place] [address] May, [facility] [address] [id number] [place] [address] May, [facility] [address] [id number] [place] [address] May, [facility] [address] [id number] [place] [address] May, [facility] [address] [id number] [place] [address] May, [facility] [address] [id number] [place] [address] May, [facility] [address] [id number] [place] [address] May, [facility] [address] [id number] [place] [address] May, [facility] [address] [id number] [place] [address] Apr, [facility] [address] [id number] [place] [address] Apr, [facility] [address] [id number] [place] [address] Apr, [facility] [address] [id number] [place] [address] Apr, [facility] [place] [facility] [address] [id number] [place] [address] Apr, [facility] [place] [facility] [address] [id number] [place] [address] Apr, [facility] [place] [facility] [address] [id number] [place] [address] Apr, [facility] [place] [facility] [address] [id number] [place] [address] Apr, [facility] [place] [facility] [id number] [place] [address] Apr, [facility] [place] [facility] [address] [id number] [place] [address] Apr, [facility] [place] [facility] [address] [id number] [place] [address] Mar, [facility] [place] [facility] [address] [facility] [id number] [place] [address] Mar, 2013 [facility] [place] [facility] [address] [facility] [id number] [place] [address] Mar, [facility] [place] [facility] [address] [facility] [id number] [place] [address] Mar, [facility] [place] [facility] [address] [id number] [place] [address] Mar, [facility] [place] [facility] [address] [facility] [id number] [place] [address] Mar, 2013 [facility] [place] [facility] [address] [facility] [id number] [place] [address] Mar, [facility] [place] [facility] [address] [id number] [place] [address] Mar, 2013 [facility] [place] [facility] [address] [id number] [place] [address] Mar, [facility] [place] [facility] [address] [id number] [place] [address] Mar, [facility] [place] [facility] [address] [id number] [place] [address] Mar, [facility] [place] [facility] [address] [id number] [place] [address] Mar, 2013 [facility] [place] [facility] [address] [id number] [place] [address] Mar, [facility] [place] [facility] [address] [facility] [id number] [place] [address] Mar, 2013 [facility] [place] [facility] [address] [facility] [id number] [place] [address] Mar, [facility] [place] [facility] [address] [facility] [id number] [place] [address] Mar, [facility] [place] [facility] [address] [id number] [place] [address] Mar, [facility] [place] [facility] [address] [id number] [place] [address] 16 Mar, 2013 [facility] [place] [facility] [address] [facility] [id number] [place] [address] 16 Mar, 2013 [facility] [place] [facility] [address] [facility] [id number] [place] [address] 15 Mar, 2013 [facility] [place] [facility] [address] [id number] [place] [address] 14 Mar, 2013 [facility] [place] [facility] [address] [facility] [id number] [place] [address] 14 Mar, 2013 [facility] [place] [facility] [address] [facility] [id number] [place] [address] 14 Mar, 2013 [facility] [place] [facility] [address] [id number] [place] [address] 14 Mar, 2013 [facility] [place] [facility] [address] [id number] [place] [address] 09 Mar, 2013 [facility] [place] [facility] [address] [id number] [place] [address] 09 Mar, 2013 [facility] [place] [facility] [address] [id number] [place] [address] 09 Mar, 2013 [facility] [place] [facility] [address] [id number] [place] [address] 09 Mar, 2013 [facility] [place] [facility] [address] [id number] [place] [address] 30 Sep, 2013 [facility] [place] [facility] [address] [id number] [place] [address] 30 Sep, 2013 [facility] [place] [facility] [address] [id number] [place] [address] 30 Sep, 2013 [facility] [place] [facility] [address] [id number] [place] [address] 30 Sep, 2013 [facility] [place] [facility] [address] [id number] [place] [address] 26 Sep, 2013 [facility] [place] [facility] [address] [id number] [place] [address] 26 Sep, 2013 [facility] [place] [facility] [address] [id number] [place] [address] 09 Feb, 2013 [facility] [place] [facility] [address] [id number] [place] [address] Feb, 2013 [facility] [place] [facility] [address] [facility] [id number] [place] [address] Feb, 2013 [facility] [place] [facility] [address] [id number] [place] [address] Feb, 2013 [facility] [place] [facility] [address] [facility] [id number] [place] [address] Feb, 2013 [facility] [place] [facility] [address] [id number] [place] [address] Feb, 2013 [facility] [place] [facility] [address] [id number] [place] [address] Jan, [facility] [place] [facility] [address] [id number] [place] [address] Jan, [facility] [place] [facility] [address] [id number] [place] [address] Jan, [facility] [place] [facility] [address] [id number] [place] [address] Jan, [facility] [place] [facility] [address] [id number] [place] [address] Jan, [facility] [place] [facility] [address] [id number] [place] [address] Jan, [facility] [place] [facility] [address] [id number] [place] [address] Jan, [facility] [place] [facility] [address] [id number] [place] [address] Jan, [facility] [place] [facility] [address] [id number] [place] [address] Jan, [facility] [place] [facility] [address] [id number] [place] [address] Jan, [facility] [place] [facility] [address] [id number] [place] [address] Jan, [facility] [place] [facility] [address] [id number] [facility] [place] [address] Jan, [facility] [place] [facility] [address] [facility] [id number] [facility] [place] [address] Jan, [facility] [place] [facility] [address] [facility] [id number] [facility] [place] [address] Dec, [facility] [place] [facility] [address] [facility] [id number] [facility] [place] [address] Dec, [facility] [place] [facility] [address] [facility] [id number] [place] [address] Dec, [facility] [place] [facility] [address] [facility] [id number] [facility] [place] [address] Dec, [facility] [place] [facility] [address] [facility] [id number] [place] [address] Dec, [facility] [place] [facility] [address] [id number] [place] [address] Dec, [facility] [place] [facility] [address] [facility] [id number] [place] [address] Dec, [facility] [place] [facility] [address] [facility] [id number] [place] [address] Dec, [facility] [place] [facility] [address] [facility] [id number] [place] [address] Dec, [facility] [place] [facility] [address] [id number] [place] [address] Dec, [facility] [place] [facility] [address] [facility] [id number] [place] [address] Dec, [facility] [place] [facility] [address] [facility] [id number] [place] [address] Dec, [facility] [place] [facility] [address] [facility] [id number] [place] [address] Dec, [facility] [place] [facility] [address] [facility] [id number] [place] [address] Dec, [facility] [place] [facility] [address] [facility] [id number] [facility] [place] [address] Dec, [facility] [place] [facility] [address] [facility] [id number] [facility] [place] [address] Dec, [facility] [place] [facility] [address] [facility] [id number] [facility] [place] [address] Dec, [facility] [place] [facility] [address] [id number] [place] [address] Dec, [facility] [place] [facility] [address] [facility] [id number] [facility] [place] [address] Nov, [facility] [place] [facility] [address] [facility] [id number] [facility] [place] [address] Nov, [facility] [place] [facility] [address] [facility] [id number] [place] [address] Nov, [facility] [place] [facility] [address] [id number] [place] [address] Nov, [facility] [place] [facility] [address] [id number] [place] [address] Nov, [facility] [place] [facility] [address] [facility] [id number] [place] [address] Nov, [facility] [place] [facility] [address] [id number] [place] [address] Nov, [facility] [place] [facility] [address] [id number] [place] [address] Nov, [facility] [place] [facility] [address] [id number] [place] [address] Nov, [facility] [place] [facility] [address] [facility] [id number] [facility] [place] [address] Nov, [facility] [place] [facility] [address] [facility] [id number] [place] [address] Nov, [facility] [place] [facility] [address] [facility] [id number] [place] [address] Nov, [facility] [place] [facility] [address] [id number] [place] [address] Nov, [facility] [place] [facility] [address] [id number] [place] [address] Nov, [facility] [place] [facility] [address] [id number] [place] [address] Nov, [facility] [place] [facility] [address] [id number] [place] [address] Nov, [facility] [place] [facility] [address] [id number] [place] [address] Nov, [facility] [place] [facility] [address] [id number] [place] [address] Nov, [facility] [place] [facility] [address] [id number] [place] [address] Nov, [facility] [place] [facility] [address] [id number] [place] [address] Nov, [facility] [place] [facility] [address] [id number] [place] [address] October, [facility] [place] [facility] [address] [id number] [place] [address] October, [facility] [place] [facility] [address] [id number] [place] [address] October, [facility] [place] [facility] [address] [id number] [place] [address] October, [facility] [place] [facility] [address] [id number] [place] [address] Sep, [facility] [place] [facility] [address] [id number] [place] [address] Sep, [facility] [place] [facility] [address] [id number] [place] [address] Sep, [facility] [place] [facility] [address] [id number] [place] [address] Sep, [facility] [place] [facility] [address] [id number] [place] [address] Sep, [facility] [place] [facility] [address] [id number] [place] [address] Sep, [facility] [place] [facility] [address] [facility] [id number] [place] [address] Sep, [facility] [place] [facility] [address] [facility] [id number] [place] [address] Sep, [facility] [place] [facility] [address] [id number] [place] [address] Sep, [facility] [place] [facility] [address] [id number] [place] [address] Aug, [facility] [place] [facility] [address] [facility] [id number] [place] [address] Aug, [facility] [place] [facility] [address] [id number] [place] [address] Aug, [facility] [place] [facility] [address] [id number] [place] [address] Aug, [facility] [place] [facility] [address] [id number] [place] [address] Aug, [facility] [place] [facility] [address] [id number] [place] [address] Aug, [facility] [place] [facility] [address] [id number] [place] [address] Aug, [facility] [place] [facility] [address] [id number] [place] [address] Aug, [facility] [place] [facility] [address] [id number] [place] [address] Jul, [facility] [place] [facility] [address] [id number] [place] [address] Jul, [facility] [place] [facility] [address] [facility] [id number] [place] [address] Jun, [facility] [place] [facility] [address] [id number] [place] [address] Jun, [facility] [place] [facility] [address] [id number] [place] [address] Jun, [facility] [place] [facility] [address] [id number] [place] [address] Jun, [facility] [place] [facility] [address] [id number] [place] [address] Jun, [facility] [place] [facility] [address] [id number] [place] [address] Jun, [facility] [place] [facility] [address] [id number] [place] [address] Jun, [facility] [place] [facility] [address] [id number] [place] [address] Jun, [facility] [place] [facility] [address] [id number] [place] [address] Jun, [facility] [place] [facility] [address] [id number] [place] [address] Jun, [facility] [place] [facility] [address] [id number] [place] [address] Jun, [facility] [place] [facility] [address] [id number] [place] [address] Jun, [facility] [place] [facility] [address] [id number] [place] [address] May, [facility] [place] [facility] [address] [id number] [place] [address] May, [facility] [place] [facility] [address] [id number] [place] [address] May, [facility] [place] [facility] [address] [id number] [place] [address] May, [facility] [place] [facility] [address] [id number] [place] [address] May, [facility] [place] [facility] [address] [id number] [place] [address] May, [facility] [place] [facility] [address] [id number] [place] [address] May, [facility] [place] [facility] [address] [id number] [place] [address] May, [facility] [place] [facility] [address] [id number] [place] [address] May, [facility] [place] [facility] [address] [id number] [place] [address] May, [facility] [place] [facility] [address] [id number] [place] [address] May, [facility] [place] [facility] [address] [id number] [place] [address] May, [facility] [place] [facility] [address] [id number] [place] [address] May, [facility] [place] [facility] [address] [id number] [place] [address] Apr, [facility] [place] [facility] [address] [id number] [place] [address] Apr, [facility] [place] [facility] [address] [id number] [place] [address] Mar, [facility] [place] [facility] [address] [id number] [place] [address] Mar, [facility] [place] [facility] [address] [id number] [place] [address] 24 Feb, 2013 [facility] [place] [facility] [address] [id number] [place] [address] Feb, [facility] [place] [facility] [address] [id number] [place] [address] Feb, [facility] [place] [facility] [address] [id number] [place] [address] Feb, [facility] [place] [facility] [address] [id number] [place] [address] Jan, [facility] [place] [facility] [address] [id number] [place] [address] Jan, [facility] [place] [facility] [address] [id number] [place] [address] Jan, [facility] [place] [facility] [address] [id number] [place] [address] Jan, [facility] [address] [id number] [place] [address] Jan, [facility] [place] [facility] [address] [id number] [place] [address] Jan, [facility] [place] [facility] [address] [id number] [place] [address] Dec, [facility] [place] [facility] [address] [id number] [place] [address] Dec, [facility] [place] [facility] [address] [id number] [place] [address] Dec, [facility] [place] [facility] [address] [id number] [place] [address] Dec, [facility] [place] [facility] [address] [id number] [place] [address] Nov, [facility] [place] [facility] [address] [id number] [place] [address] October, [facility] [place] [facility] [address] [id number] [place] [address] October, [facility] [place] [facility] [address] [id number] [place] [address] October, [facility] [place] [facility] [address] [id number] [place] [address] Sep, [facility] [place] [facility] [address] [id number] [place] [address] Sep, [facility] [place] [facility] [address] [id number] [place] [address] Jun, [facility] [place] [facility] [address] [id number] [place] [address] Jun, [facility] [place] [facility] [address] [id number] [place] [address] Jun, [facility] [place] [facility] [address] [id number] [place] [address] Apr, [facility] [place] [facility] [address] [id number] [place] [address] Apr, [facility] [address] [id number] [place] [address] Apr, [facility] [address] [id number] [place] [address] Apr, [facility] [address] [id number] [place] [address] Mar, [facility] [address] [id number] [place] [address] Mar, [facility] [address] [id number] [facility] [place] [address] Mar, [facility] [address] [id number] [place] [address] Mar, [facility] [address] [id number] [place] [address] Feb, [facility] [address] [id number] [place] [address] Feb, [facility] [address] [id number] [place] [address] Feb, [facility] [address] [id number] [place] [address] Jan, [facility] [address] [id number] [place] [address] Jan, [facility] [address] [id number] [place] [address] Jan, [facility] [address] [id number] [place] [address] Jan, [facility] [address] [id number] [place] [address] Dec, [facility] [address] [id number] [place] [address] Dec, [facility] [address] [id number] [place] [address] Nov, [facility] [address] [id number] [place] [address] Nov, [facility] [address] [id number] [place] [address] October, [facility] [address] [id number] [place] [address] October, [facility] [address] [id number] [place] [address] October, [facility] [address] [id number] [place] [address] Sep, [facility] [address] [id number] [place] [address] Sep, [facility] [address] [id number] [place] [address] Sep, [facility] [address] [id number] [place] [address] Aug, [facility] [address] [id number] [place] [address] Aug, [facility] [address] [id number] [place] [address] Aug, [facility] [address] [id number] [place] [address] Aug, [facility] [address] [id number] [place] [address] Aug, [facility] [address] [id number] [place] [address] Jul, [facility] [address] [id number] [place] [address] 16 Jul, 2011 [facility] [address] [id number] [place] [address] 13 Jul, 2011 [facility] [address] [id number] [place] [address] 09 Jul, 2011 [facility] [address] [id number] [place] [address] 07 Jul, 2011 [facility] [address] [id number] [place] [address] Jul, [facility] [address] [id number] [place] [address] Jul, [facility] [address] [id number] [place] [address] Jul, [facility] [address] [id number] [place] [address] Jun, [facility] [address] [id number] [place] [address] Jun, [facility] [address] [id number] [place] [address] May, [facility] [address] [id number] [place] [address] May, [facility] [address] [id number] [place] [address] May, [facility] [address] [id number] [place] [address] May, [facility] [address] [id number] [place] [address] Apr, [facility] [address] [id number] [place] [address] Apr, [facility] [address] [id number] [place] [address] Apr, [facility] [address] [id number] [place] [address] Mar, [facility] [address] [id number] [place] [address] Mar, [facility] [address] [id number] [place] [address] Mar, [facility] [address] [id number] [place] [address] Mar, [facility] [id number] [place] [address] Dec, [facility] [id number] [place] [address] October, [facility] [id number] [place] [address] May, [facility] [id number] [place] [address] May, [facility] [id number] [place] [address] May, [facility] [id number] [place] [address] May, [facility] [id number] [place] [address] Mar, [facility] [id number] [place] [address] Mar, [facility] [id number] [place] [address] May, [facility] [id number] [place] [address] May, [facility] [id number] [place] [address] May, [facility] [id number] [place] [address] May, [facility] [id number] [place] [address] Apr, [facility] [id number] [place] [address] Apr, [facility] [id number] [place] [address] October, IMMUNIZATIONS No Known Immunizations SOCIAL HISTORY Never Assessed REASON FOR VISIT PLAN OF CARE VITAL SIGNS MEDICATIONS Unknown Medications RESULTS No Results PROCEDURES No Known procedures INSTRUCTIONS MEDICATIONS ADMINISTERED No Known Medications MEDICAL (GENERAL) HISTORY Type Description Date Medical History Anxiety disorder Medical History depression Medical History acid reflux Medical History asthma Medical History copd Medical History [facility] hyperlipidemia Surgical History carpal tunnel [...]
--- OUTSIDE RECORDS SUMMARY | 2020-01-13 12:14 | XMS REPORT ---
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 Active 591039797 Problem Mild persistent asthma without complication J45.30 Active 006048787 Problem Varicose veins of both lower extremities I83.93 Active 22662803 Problem On home oxygen therapy Z99.81 Active 371830291478 Problem Mild chronic obstructive pulmonary disease J44.9 Active 537148998 Problem Neuropathy G62.9 Active 889529977 Problem Essential hypertension I10 Active 44459767 Problem Social phobia F40.10 Active 369600 02 Problem Major depressive disorder, recurrent episode, moderate F33.1 Active 186179085 Problem Mood disorder F39 Active 429146 05 Problem Psychotic disorder F29 Active 6 8009500 Problem Hypertension, benign I10 Active 41417149 Problem Body mass index (BMI) 40.0-44.9, adult Z68.41 Active 561314710 Problem Panic disorder without agoraphobia F41.0 Active 71588462 Problem Unspecified psychosis not du e to a substance or known physiological condition F29 Active 744152720 Problem Agoraphobia F40.00 Active 27704299 Problem Fatigue R53.83 Active 54380256 Problem Onychomycosis B35.1 Active 313511 008 Problem Major depressive disorder in full remission F32.5 Active 01596409 Problem Slow transit constipation K59.01 Acti ve 23584758 Problem Chronic obstructive pulmonary disease, unspecified COPD ty pe J44.9 Active 90677836 ALLERGIES No Information ENCOUNTERS Encounter Location Date Diagnosis [place] [address] [address] Aug, [place] [address] [address] Aug, [place] [address] [address] Jul, [place] [address] [address] Jul, [place] [address] [address] Jul, Unspecified psychosis not due to a subst ance or known physiological condition F29 ; Chronic obstructive pulmonary disease, unspecified COPD type J44.9 and Body mass index (BMI) 40.0-44.9, adult Z68.41 [place] [address] [address] Jun, [place] [address] [address] Jun, Morbid obesity E66.01 [place] [address] [address] May, Morbid obesity E66.01 [place] [address] [address] May, Encounter for immunization Z23 [place] [address] [address] May, Major depressive disorder, recurrent epi sode, moderate F33.1 ; Panic disorder without agoraphobia F41.0 and Morbid obesity E66.01 [place] [address] [address] May, Major depressive disorder in full remiss ion F32.5 and Panic disorder without agoraphobia F41.[address] [address] Apr, Morbid obesity E66.[address] [address] Apr, Slow transit constipation K59.01 and Lois lulitis of left lower extremity L03.[address] [address] Apr, Morbid obesity E66.[address] [address] Apr, [address] [address] Apr, Major depressive disorder, recurrent epi sode, moderate F33.1 and Panic disorder without agoraphobia F41.[address] [address] Mar, Viral upper respiratory tract infection J06.[address] [address] Mar, Bronchitis J40 and Encounter for immuniz ation Z23 [address] [address] Mar, Morbid obesity E66.[address] [address] Feb, Major depressive disorder, recurrent epi sode, moderate F33.1 and Panic disorder without agoraphobia F41.[address] [address] Feb, Morbid obesity E66.[address] [address] 06 Feb, 2019 Onychomycosis B35.1 ; Type 2 diabetes me llitus with diabetic neuropathic arthropathy E11.610 and Xerosis of skin L85.[address] [id number] [place] [address] Feb, Major depressive disorder, recurrent epi sode, moderate F33.1 ; Panic disorder without agoraphobia F41.0 and Morbid obesity E66.01 [place] [address] [address] Jan, Major depressive disorder in full remiss ion F32.5 and Panic disorder without agoraphobia F41.0 [place] [address] [address] Jan, Pneumonia of both lower lobes due to inf ectious organism J18.1 and Morbid obesity E66.01 [place] [address] [address] Jan, [place] [address] [address] Jan, Major depressive disorder in full remiss ion F32.5 and Panic disorder without agoraphobia F41.0 [place] [address] [address] Jan, [place] [address] [address] Jan, Major depressive disorder, recurrent epi sode, moderate F33.1 ; Panic disorder without agoraphobia F41.0 and Morbid obesity E66.01 [place] [address] [address] Dec, Bilious vomiting with nausea R11.14 ; Co ughing R05 and Choking, subsequent encounter T17.308D [place] [address] [address] Dec, Morbid obesity E66.01 [place] [address] [address] Dec, Major depressive disorder, recurrent epi sode, moderate F33.1 and Panic disorder without agoraphobia F41.0 [place] [address] [address] Dec, [place] [address] [address] Dec, Major depressive disorder, recurrent epi sode, moderate F33.1 [place] [address] [address] Nov, Major depressive disorder, recurrent epi sode, moderate F33.1 ; Panic disorder without agoraphobia F41.0 and Morbid obesity E66.01 [place] [address] [address] Nov, Morbid obesity E66.01 [place] [address] [address] Nov, Major depressive disorder, recurrent epi sode, moderate F33.1 and Panic disorder without agoraphobia F41.0 [facility] [place] [address] [address] Nov, Allergic reaction, initial e ncounter T78.40XA and Morbid obesity E66.[address] [address] Nov, [address] [address] Nov, Morbid obesity E66.01 ; Swallowing probl em R13.10 and Hypertension, benign I10 [facility] IN [place] [id number] [place] [address] Nov, Morbid obesity E66.01 ; COPD exacerbation J44.1 and Non- recurrent acute suppurative otitis media of left ear without spontaneous rupture of tympanic membrane H66.[address] [address] Nov, Onychomycosis B35.1 ; Neuropathy G62.9 a nd Fissure in skin of foot R23.[address] [address] October, Major depressive disorder, recurrent epi sode, moderate F33.1 ; Panic disorder without agoraphobia F41.0 and Morbid obesity E66.01 [facility] [address] [facility] [id number] [address] [place] [address] October, Viral upper respiratory trac t infection J06.9 [facility] [place] [address] [address] October, [facility] [place] [address] [address] October, Major depressive disorder, recurrent epi sode, moderate F33.1 and Panic disorder without agoraphobia F41.0 [facility] [place] [address] [address] October, [facility] [place] [address] [address] October, [facility] [place] [address] [address] October, [facility] [place] [address] [address] October, [place] [address] [address] October, [facility] [place] [address] [address] October, [facility] [place] [address] [address] October, Major depressive disorder, recurrent epi sode, moderate F33.1 and Panic disorder without agoraphobia F41.0 [facility] [place] [address] [address] Sep, Morbid obesity E66.01 and Lumbar neuriti s M54.16 [facility] [place] [address] [place] [id number] [place] [address] Sep, Panic disorder without agoraphobia F41.0 and Major depressive disorder, recurrent episode, moderate F33.1 [facility] [address] [facility] [id number] [address] [place] [address] Sep, Gastroenteritis K52.9 ; Low back pain M54.5 ; Other chronic pain G89.29 and Morbid obesity E66.01 [facility] [place] [address] [address] Sep, Major depressive disorder, recurrent epi sode, moderate F33.1 ; Panic disorder without agoraphobia F41.0 and Social phobia F40.10 [place] [address] [address] Sep, Panic disorder without agoraphobia F41.0 [place] [address] [address] Sep, Panic disorder without agoraphobia F41.0 [place] [address] [address] Aug, Panic disorder without agoraphobia F41.0 ; Major depressive disorder, recurrent episode, moderate F33.1 ; Social phobia F40.10 ; Psychotic disorder F29 ; Tardive dyskinesia G24.01 and Morbid obesity E66.01 [place] [address] [address] Aug, Dysthymic disorder F34.1 and Psychotic d isorder F29 [place] [address] [address] Aug, Encounter for Medicare annual wellness e xam Z00.00 ; Morbid obesity E66.01 and Type 2 diabetes mellitus with diabetic neuropathic arthropathy E11.610 [place] [address] [address] Aug, Dysthymic disorder F34.1 and Psychotic d isorder F29 [place] [address] [address] Aug, Neuropathy G62.9 ; Onychomycosis B35.1 a nd Xerosis of skin L85.3 [place] [address] [address] Jul, [place] [address] [address] Jul, Mood disorder F39 ; Wheezing R06.2 ; Diego sanchez, initial encounter T17.308A and Coughing R05 [place] [address] [address] 07 Jul, 2018 Low back pain M54.5 [facility] [address] [facility] [id number] [address] [place] [address] Jun, Flu-like symptoms R68.89 ; B NV 45.0-49.9, adult Z68.42 ; COPD exacerbation J44.1 and Acute bronchitis J20.9 [place] [address] [address] Jun, [place] [address] [address] May, [place] [address] [address] May, Onychomycosis B35.1 and Type 2 diabetes mellitus with diabetic neuropathic arthropathy E11.610 [place] [address] [address] May, Low back pain M54.5 and Edema leg R60.0 [place] [address] [address] May, BMI 45.0-49.9, adult Z68.42 ; Well woman exam with routine gynecological exam Z01.419 and Breast cancer screening Z12.[address] [address] Apr, Arthritis M19.90 [place] [address] [address] 16 Apr, 2018 Arthritis M19.90 and Otalgia of both ear s H92.03 [place] [address] [address] Feb, [place] [address] [address] 28 Feb, 2018 Low back pain M54.5 ; Other chronic pain G89.29 ; Exertional asthma J45.990 and Encounter for immunization Z23 [place] [address] [address] Feb, Skin fissures R23.4 ; Neuropathy G62.9 a nd Onychomycosis B35.1 [place] [address] [address] 05 Feb, 2018 Dysthymic disorder F34.1 [place] [address] [address] 04 Feb, 2018 [place] [address] [address] Jan, [place] [address] [address] Jan, Abrasion of right elbow, initial encount er S50.311A ; Abrasion, right knee, initial encounter S80.211A and Sprain of other ligament of right ankle, initial encounter S93.491A [place] [address] [address] Jan, [facility] [address] [facility] [id number] [address] [place] [address] Jan, Injury of left ankle, initia l encounter S99.912A ; Fall down stairs, initial encounter W10.8XXA and BMI 45.0-49.9, adult Z68.42 [place] [address] [address] Jan, COPD exacerbation J44.1 [place] [address] [address] 13 Jan, 2018 Dysfunction of both eustachian tubes H69 .83 [place] [address] [address] 08 Jan, 2018 Bronchitis J40 and Acute suppurative giovana tis media of left ear without spontaneous rupture of tympanic membrane, recurrence not specified H66.002 [place] [address] [address] Jan, [place] [address] [address] Jan, Bronchitis J40 and BMI 40.0-44.9, adult Z68.41 [place] [address] [address] Jan, [place] [address] [address] Dec, Gastric pain R10.9 [place] [address] [address] Dec, [place] [address] [address] Dec, History of illicit drug use Z87.898 ; Ne uropathy G62.9 ; COPD (chronic obstructive pulmonary disease) with chronic bronchitis J44.9 and Acute pain of right knee M25.561 [place] [address] [address] Nov, [place] [address] [address] Nov, Onychomycosis B35.1 and Contusion of lef t foot, subsequent encounter S90.32XD [address] [address] Nov, COPD exacerbation J44.1 [place] [address] [address] Sep, [place] [address] [address] Sep, Dysthymic disorder F34.1 ; Tobacco abuse Z72.0 ; Pain in right knee M25.561 ; Pain in left knee M25.562 ; Other chronic pain G89.29 and BMI 40.0- 44.9, adult Z68.[address] [address] 22 Aug, 2017 Major depressive disorder, recurrent epi sode, moderate F33.1 and Social phobia F40.[address] [address] 14 Aug, 2017 Dysthymic disorder F34.1 ; Non-pressure chronic ulcer of left thigh, unspecified ulcer stage L97.129 ; Tobacco abuse Z72.0 ; Mild chronic obstructive pulmonary disease J44.9 and Forgetfulness R68.[address] [address] 09 Aug, 2017 Onychomycosis B35.1 ; Fissure in skin of foot R23.4 and Foot callus L84 [facility] [place] [id number] [place] [address] Jul, Right medial knee pain M25.5 61 ; Upper respiratory tract infection, unspecified type J06.9 and BMI 40.0-44.9, adult Z68.41 [facility] [address] [address] 08 Jul, 2017 Nausea and vomiting, intract ability of vomiting not specified, unspecified vomiting type R11.2 ; Left ear pain H92.02 and Gastric pain R10.[address] [address] Apr, Encounter for immunization Z23 [address] [address] Apr, Onychomycosis B35.1 ; Xerosis of skin L8 5.3 ; Neuropathy G62.9 and Type 2 diabetes mellitus with diabetic neuropathic arthropathy E11.[address] [address] Jan, Onychomycosis B35.1 and Neuropathy G62.9 [facility] [place] [address] [address] Dec, [facility] [place] [address] [address] Dec, [facility] [place] [address] [address] Nov, [facility] [place] [address] [address] Aug, [facility] [place] [address] [address] Aug, [facility] [place] [address] [address] Jul, [facility] [place] [address] [address] Jul, [facility] [place] [address] [address] Jul, Decubitus ulcer of left thigh, stage 2 L 89.892 [place] [address] [address] 17 Jul, 2016 Decubitus ulcer of left thigh, stage 2 L 89.892 [place] [address] [address] 17 Jul, 2016 [facility] [place] [address] [address] 15 Jul, 2016 Decubitus ulcer of left thigh, stage 2 L 89.892 [facility] [place] [address] [address] 14 Jul, 2016 [facility] [place] [address] [address] 13 Jul, 2016 Cellulitis of other specified site L03.8 18 ; Illicit drug use F19.90 and Decubitus ulcer of left thigh, stage 2 L89.892 [place] [address] [address] Jul, [place] [address] [address] Jul, Cellulitis of right breast N61.0 [place] [address] [address] Jun, [place] [address] [address] Jun, [place] [address] [address] Jun, Wheezing R06.2 and Arthralgia, unspecifi ed joint M25.50 [place] [address] [address] May, [place] [address] [address] May, [place] [address] [address] May, [place] [address] [address] May, Shortness of breath R06.02 [place] [address] [address] 02 May, 2016 Onychomycosis B35.1 and Fissure in skin of foot R23.4 [place] [address] [address] Apr, [facility] [address] [facility] [id number] [address] [place] [address] Apr, Dizziness R42 [place] [address] [address] 14 Apr, 2016 Shortness of breath R06.02 ; Essential h ypertension I10 ; Dizziness R42 and On home oxygen therapy Z99.81 [place] [address] [address] Apr, [facility] [place] [address] [address] Apr, [facility] [place] [address] [address] Apr, [facility] [place] [address] [address] Apr, [facility] [place] [address] [address] Apr, [facility] [place] [address] [address] Apr, [facility] [place] [address] [address] Apr, [facility] [place] [address] [address] Mar, Mild chronic obstructive pulmonary disea se J44.9 [facility] [place] [address] [address] Mar, [facility] [place] [address] [address] Mar, Epigastric pain R10.13 ; Low back pain M 54.5 ; Other chronic pain G89.29 and Breast cancer screening Z12.39 [facility] [place] [address] [address] Mar, [facility] [place] [address] [address] Mar, [facility] [place] [address] [address] Feb, [facility] [place] [address] [address] Feb, [facility] [place] [address] [address] Feb, Fissure in skin of foot R23.4 and Onycho mycosis B35.1 [facility] [place] [address] [address] Jan, Agoraphobia F40.00 [facility] [place] [address] [address] Dec, Agoraphobia F40.00 [facility] [place] [address] [address] Dec, Mild persistent asthma without complicat ion J45.30 ; Dysthymic disorder F34.1 and Upper respiratory tract infection, unspecified type J06.9 [facility] [place] [address] [address] Nov, Agoraphobia F40.00 [place] [address] [address] October, Agoraphobia F40.00 [place] [address] [address] Sep, Panic disorder without agoraphobia F41.0 ; Agoraphobia F40.00 and Dysthymic disorder F34.1 [place] [address] [address] Sep, Panic attacks F41.0 [facility] [place] [address] [address] Sep, [facility] [place] [address] [address] Sep, Panic disorder without agoraphobia F41.0 ; Varicose veins of both lower extremities I83.93 and Fatigue R53.83 [place] [address] [address] Sep, Fatigue R53.83 [facility] [place] [address] [address] Sep, [facility] [place] [address] [address] Aug, [facility] [place] [address] [address] Aug, [place] [address] [address] Aug, Type 2 diabetes mellitus with diabetic n europathic arthropathy E11.610 [place] [address] [address] Aug, Panic disorder without agoraphobia F41.0 ; Agoraphobia F40.00 and Dysthymic disorder F34.1 [place] [address] [address] Aug, Shortness of breath R06.02 ; Panic attac ks F41.0 ; COPD (chronic obstructive pulmonary disease) J44.9 ; Tobacco abuse Z72.0 ; Family history of diabetes mellitus Z83.3 and Weight gain R63.5 [place] [address] [address] Aug, [place] [address] [address] Jul, [place] [address] [address] Jun, Onychomycosis B35.1 ; Neuropathy G62.9 a nd Impaired circulation I99.[address] [address] 09 Mar, 2015 Fissure in skin of foot R23.4 ; Onychomy cosis B35.1 and 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 [address] [id number] [place] [address] Dec, [facility] [address] [id number] [place] [address] Dec, Onychomycosis 110.1 and Skin fissures 70 9.8 [facility] [address] [id number] [place] [address] Sep, [facility] [address] [id number] [place] [address] Sep, [facility] [address] [id number] [place] [address] Aug, [facility] [address] [id number] [place] [address] Aug, [facility] [address] [id number] [place] [address] Jul, [facility] [address] [id number] [place] [address] Jul, [facility] [address] [id number] [place] [address] Jun, [facility] [address] [id number] [place] [address] Jun, [facility] [address] [id number] [place] [address] Jun, [facility] [place] [facility] [address] [id number] [place] [address] Jun, [facility] [address] [id number] [place] [address] Jun, [facility] [place] [facility] [address] [id number] [place] [address] May, [facility] [place] [facility] [address] [id number] [place] [address] May, [facility] [address] [id number] [place] [address] May, [facility] [address] [id number] [place] [address] May, [facility] [address] [id number] [place] [address] May, [facility] [address] [id number] [place] [address] May, [facility] [address] [id number] [place] [address] May, [facility] [address] [id number] [place] [address] May, [facility] [address] [id number] [place] [address] Apr, [facility] [address] [id number] [place] [address] Apr, [facility] [address] [id number] [place] [address] Apr, [facility] [address] [id number] [place] [address] Apr, [facility] [address] [id number] [place] [address] Apr, [facility] [place] [facility] [address] [id number] [place] [address] Apr, [facility] [place] [facility] [address] [id number] [place] [address] Apr, [facility] [place] [facility] [address] [id number] [place] [address] Apr, [facility] [place] [facility] [id number] [place] [address] Apr, [facility] [place] [facility] [address] [id number] [place] [address] Apr, [facility] [place] [facility] [address] [id number] [place] [address] Mar, [facility] [place] [facility] [address] [facility] [id number] [place] [address] Mar, 2013 [facility] [place] [facility] [address] [facility] [id number] [place] [address] Mar, [facility] [place] [facility] [address] [facility] [id number] [place] [address] Mar, [facility] [place] [facility] [address] [id number] [place] [address] Mar, [facility] [place] [facility] [address] [facility] [id number] [place] [address] Mar, 2013 [facility] [place] [facility] [address] [facility] [id number] [place] [address] Mar, [facility] [place] [facility] [address] [id number] [place] [address] Mar, 2013 [facility] [place] [facility] [address] [id number] [place] [address] Mar, [facility] [place] [facility] [address] [id number] [place] [address] Mar, [facility] [place] [facility] [address] [id number] [place] [address] Mar, [facility] [place] [facility] [address] [id number] [place] [address] Mar, 2013 [facility] [place] [facility] [address] [id number] [place] [address] Mar, [facility] [place] [facility] [address] [facility] [id number] [place] [address] Mar, 2013 [facility] [place] [facility] [address] [facility] [id number] [place] [address] Mar, [facility] [place] [facility] [address] [facility] [id number] [place] [address] Mar, [facility] [place] [facility] [address] [id number] [place] [address] Mar, [facility] [place] [facility] [address] [id number] [place] [address] 16 Mar, 2013 [facility] [place] [facility] [address] [facility] [id number] [place] [address] 16 Mar, 2013 [facility] [place] [facility] [address] [facility] [id number] [place] [address] 15 Mar, 2013 [facility] [place] [facility] [address] [id number] [place] [address] 14 Mar, 2013 [facility] [place] [facility] [address] [facility] [id number] [place] [address] 14 Mar, 2013 [facility] [place] [facility] [address] [facility] [id number] [place] [address] 14 Mar, 2013 [facility] [place] [facility] [address] [id number] [place] [address] 14 Mar, 2013 [facility] [place] [facility] [address] [id number] [place] [address] 09 Mar, 2013 [facility] [place] [facility] [address] [id number] [place] [address] 09 Mar, 2013 [facility] [place] [facility] [address] [id number] [place] [address] 09 Mar, 2013 [facility] [place] [facility] [address] [id number] [place] [address] 09 Mar, 2013 [facility] [place] [facility] [address] [id number] [place] [address] 30 Sep, 2013 [facility] [place] [facility] [address] [id number] [place] [address] 30 Sep, 2013 [facility] [place] [facility] [address] [id number] [place] [address] 30 Sep, 2013 [facility] [place] [facility] [address] [id number] [place] [address] 30 Sep, 2013 [facility] [place] [facility] [address] [id number] [place] [address] 26 Sep, 2013 [facility] [place] [facility] [address] [id number] [place] [address] 26 Sep, 2013 [facility] [place] [facility] [address] [id number] [place] [address] 09 Feb, 2013 [facility] [place] [facility] [address] [id number] [place] [address] Feb, 2013 [facility] [place] [facility] [address] [facility] [id number] [place] [address] Feb, 2013 [facility] [place] [facility] [address] [id number] [place] [address] Feb, 2013 [facility] [place] [facility] [address] [facility] [id number] [place] [address] Feb, 2013 [facility] [place] [facility] [address] [id number] [place] [address] Feb, 2013 [facility] [place] [facility] [address] [id number] [place] [address] Jan, [facility] [place] [facility] [address] [id number] [place] [address] Jan, [facility] [place] [facility] [address] [id number] [place] [address] Jan, [facility] [place] [facility] [address] [id number] [place] [address] Jan, [facility] [place] [facility] [address] [id number] [place] [address] Jan, [facility] [place] [facility] [address] [id number] [place] [address] Jan, [facility] [place] [facility] [address] [id number] [place] [address] Jan, [facility] [place] [facility] [address] [id number] [place] [address] Jan, [facility] [place] [facility] [address] [id number] [place] [address] Jan, [facility] [place] [facility] [address] [id number] [place] [address] Jan, [facility] [place] [facility] [address] [id number] [place] [address] Jan, [facility] [place] [facility] [address] [id number] [facility] [place] [address] Jan, [facility] [place] [facility] [address] [facility] [id number] [facility] [place] [address] Jan, [facility] [place] [facility] [address] [facility] [id number] [facility] [place] [address] Dec, [facility] [place] [facility] [address] [facility] [id number] [facility] [place] [address] Dec, [facility] [place] [facility] [address] [facility] [id number] [place] [address] Dec, [facility] [place] [facility] [address] [facility] [id number] [facility] [place] [address] Dec, [facility] [place] [facility] [address] [facility] [id number] [place] [address] Dec, [facility] [place] [facility] [address] [id number] [place] [address] Dec, [facility] [place] [facility] [address] [facility] [id number] [place] [address] Dec, [facility] [place] [facility] [address] [facility] [id number] [place] [address] Dec, [facility] [place] [facility] [address] [facility] [id number] [place] [address] Dec, [facility] [place] [facility] [address] [id number] [place] [address] Dec, [facility] [place] [facility] [address] [facility] [id number] [place] [address] Dec, [facility] [place] [facility] [address] [facility] [id number] [place] [address] Dec, [facility] [place] [facility] [address] [facility] [id number] [place] [address] Dec, [facility] [place] [facility] [address] [facility] [id number] [place] [address] Dec, [facility] [place] [facility] [address] [facility] [id number] [facility] [place] [address] Dec, [facility] [place] [facility] [address] [facility] [id number] [facility] [place] [address] Dec, [facility] [place] [facility] [address] [facility] [id number] [facility] [place] [address] Dec, [facility] [place] [facility] [address] [id number] [place] [address] Dec, [facility] [place] [facility] [address] [facility] [id number] [facility] [place] [address] Nov, [facility] [place] [facility] [address] [facility] [id number] [facility] [place] [address] Nov, [facility] [place] [facility] [address] [facility] [id number] [place] [address] Nov, [facility] [place] [facility] [address] [id number] [place] [address] Nov, [facility] [place] [facility] [address] [id number] [place] [address] Nov, [facility] [place] [facility] [address] [facility] [id number] [place] [address] Nov, [facility] [place] [facility] [address] [id number] [place] [address] Nov, [facility] [place] [facility] [address] [id number] [place] [address] Nov, [facility] [place] [facility] [address] [id number] [place] [address] Nov, [facility] [place] [facility] [address] [facility] [id number] [facility] [place] [address] Nov, [facility] [place] [facility] [address] [facility] [id number] [place] [address] Nov, [facility] [place] [facility] [address] [facility] [id number] [place] [address] Nov, [facility] [place] [facility] [address] [id number] [place] [address] Nov, [facility] [place] [facility] [address] [id number] [place] [address] Nov, [facility] [place] [facility] [address] [id number] [place] [address] Nov, [facility] [place] [facility] [address] [id number] [place] [address] Nov, [facility] [place] [facility] [address] [id number] [place] [address] Nov, [facility] [place] [facility] [address] [id number] [place] [address] Nov, [facility] [place] [facility] [address] [id number] [place] [address] Nov, [facility] [place] [facility] [address] [id number] [place] [address] Nov, [facility] [place] [facility] [address] [id number] [place] [address] October, [facility] [place] [facility] [address] [id number] [place] [address] October, [facility] [place] [facility] [address] [id number] [place] [address] October, [facility] [place] [facility] [address] [id number] [place] [address] October, [facility] [place] [facility] [address] [id number] [place] [address] Sep, [facility] [place] [facility] [address] [id number] [place] [address] Sep, [facility] [place] [facility] [address] [id number] [place] [address] Sep, [facility] [place] [facility] [address] [id number] [place] [address] Sep, [facility] [place] [facility] [address] [id number] [place] [address] Sep, [facility] [place] [facility] [address] [id number] [place] [address] Sep, [facility] [place] [facility] [address] [facility] [id number] [place] [address] Sep, [facility] [place] [facility] [address] [facility] [id number] [place] [address] Sep, [facility] [place] [facility] [address] [id number] [place] [address] Sep, [facility] [place] [facility] [address] [id number] [place] [address] Aug, [facility] [place] [facility] [address] [facility] [id number] [place] [address] Aug, [facility] [place] [facility] [address] [id number] [place] [address] Aug, [facility] [place] [facility] [address] [id number] [place] [address] Aug, [facility] [place] [facility] [address] [id number] [place] [address] Aug, [facility] [place] [facility] [address] [id number] [place] [address] Aug, [facility] [place] [facility] [address] [id number] [place] [address] Aug, [facility] [place] [facility] [address] [id number] [place] [address] Aug, [facility] [place] [facility] [address] [id number] [place] [address] Jul, [facility] [place] [facility] [address] [id number] [place] [address] Jul, [facility] [place] [facility] [address] [facility] [id number] [place] [address] Jun, [facility] [place] [facility] [address] [id number] [place] [address] Jun, [facility] [place] [facility] [address] [id number] [place] [address] Jun, [facility] [place] [facility] [address] [id number] [place] [address] Jun, [facility] [place] [facility] [address] [id number] [place] [address] Jun, [facility] [place] [facility] [address] [id number] [place] [address] Jun, [facility] [place] [facility] [address] [id number] [place] [address] Jun, [facility] [place] [facility] [address] [id number] [place] [address] Jun, [facility] [place] [facility] [address] [id number] [place] [address] Jun, [facility] [place] [facility] [address] [id number] [place] [address] Jun, [facility] [place] [facility] [address] [id number] [place] [address] Jun, [facility] [place] [facility] [address] [id number] [place] [address] Jun, [facility] [place] [facility] [address] [id number] [place] [address] May, [facility] [place] [facility] [address] [id number] [place] [address] May, [facility] [place] [facility] [address] [id number] [place] [address] May, [facility] [place] [facility] [address] [id number] [place] [address] May, [facility] [place] [facility] [address] [id number] [place] [address] May, [facility] [place] [facility] [address] [id number] [place] [address] May, [facility] [place] [facility] [address] [id number] [place] [address] May, [facility] [place] [facility] [address] [id number] [place] [address] May, [facility] [place] [facility] [address] [id number] [place] [address] May, [facility] [place] [facility] [address] [id number] [place] [address] May, [facility] [place] [facility] [address] [id number] [place] [address] May, [facility] [place] [facility] [address] [id number] [place] [address] May, [facility] [place] [facility] [address] [id number] [place] [address] May, [facility] [place] [facility] [address] [id number] [place] [address] Apr, [facility] [place] [facility] [address] [id number] [place] [address] Apr, [facility] [place] [facility] [address] [id number] [place] [address] Mar, [facility] [place] [facility] [address] [id number] [place] [address] Mar, [facility] [place] [facility] [address] [id number] [place] [address] 24 Feb, 2013 [facility] [place] [facility] [address] [id number] [place] [address] Feb, [facility] [place] [facility] [address] [id number] [place] [address] Feb, [facility] [place] [facility] [address] [id number] [place] [address] Feb, [facility] [place] [facility] [address] [id number] [place] [address] Jan, [facility] [place] [facility] [address] [id number] [place] [address] Jan, [facility] [place] [facility] [address] [id number] [place] [address] Jan, [facility] [place] [facility] [address] [id number] [place] [address] Jan, [facility] [address] [id number] [place] [address] Jan, [facility] [place] [facility] [address] [id number] [place] [address] Jan, [facility] [place] [facility] [address] [id number] [place] [address] Dec, [facility] [place] [facility] [address] [id number] [place] [address] Dec, [facility] [place] [facility] [address] [id number] [place] [address] Dec, [facility] [place] [facility] [address] [id number] [place] [address] Dec, [facility] [place] [facility] [address] [id number] [place] [address] Nov, [facility] [place] [facility] [address] [id number] [place] [address] October, [facility] [place] [facility] [address] [id number] [place] [address] October, [facility] [place] [facility] [address] [id number] [place] [address] October, [facility] [place] [facility] [address] [id number] [place] [address] Sep, [facility] [place] [facility] [address] [id number] [place] [address] Sep, [facility] [place] [facility] [address] [id number] [place] [address] Jun, [facility] [place] [facility] [address] [id number] [place] [address] Jun, [facility] [place] [facility] [address] [id number] [place] [address] Jun, [facility] [place] [facility] [address] [id number] [place] [address] Apr, [facility] [place] [facility] [address] [id number] [place] [address] Apr, [facility] [place] [facility] [address] [id number] [place] [address] Apr, [facility] [place] [facility] [address] [id number] [place] [address] Apr, [facility] [place] [facility] [address] [id number] [place] [address] Mar, [facility] [place] [facility] [address] [id number] [place] [address] Mar, [facility] [place] [facility] [address] [id number] [facility] [place] [address] Mar, [facility] [place] [facility] [address] [id number] [place] [address] Mar, [facility] [place] [facility] [address] [id number] [place] [address] Feb, [facility] [place] [facility] [address] [id number] [place] [address] Feb, [facility] [place] [facility] [address] [id number] [place] [address] Feb, [facility] [place] [facility] [address] [id number] [place] [address] Jan, [facility] [place] [facility] [address] [id number] [place] [address] Jan, [facility] [place] [facility] [address] [id number] [place] [address] Jan, [facility] [place] [facility] [address] [id number] [place] [address] Jan, [facility] [place] [facility] [address] [id number] [place] [address] Dec, [facility] [place] [facility] [address] [id number] [place] [address] Dec, [facility] [place] [facility] [address] [id number] [place] [address] Nov, [facility] [place] [facility] [address] [id number] [place] [address] Nov, [facility] [place] [facility] [address] [id number] [place] [address] October, [facility] [place] [facility] [address] [id number] [place] [address] October, [facility] [place] [facility] [address] [id number] [place] [address] October, [facility] [place] [facility] [address] [id number] [place] [address] Sep, [facility] [place] [facility] [address] [id number] [place] [address] Sep, [facility] [place] [facility] [address] [id number] [place] [address] Sep, [facility] [place] [facility] [address] [id number] [place] [address] Aug, [facility] [place] [facility] [address] [id number] [place] [address] Aug, [facility] [place] [facility] [address] [id number] [place] [address] Aug, [facility] [place] [facility] [address] [id number] [place] [address] Aug, [facility] [place] [facility] [address] [id number] [place] [address] Aug, [facility] [place] [facility] [address] [id number] [place] [address] Jul, [facility] [address] [id number] [place] [address] 16 Jul, 2011 [facility] [address] [id number] [place] [address] 13 Jul, 2011 [facility] [address] [id number] [place] [address] 09 Jul, 2011 [facility] [address] [id number] [place] [address] 07 Jul, 2011 [facility] [address] [id number] [place] [address] Jul, [facility] [address] [id number] [place] [address] Jul, [facility] [address] [id number] [place] [address] Jul, [facility] [address] [id number] [place] [address] Jun, [facility] [address] [id number] [place] [address] Jun, [facility] [address] [id number] [place] [address] May, [facility] [address] [id number] [place] [address] May, [facility] [address] [id number] [place] [address] May, [facility] [address] [id number] [place] [address] May, [facility] [address] [id number] [place] [address] Apr, [facility] [address] [id number] [place] [address] Apr, [facility] [address] [id number] [place] [address] Apr, [facility] [address] [id number] [place] [address] Mar, [facility] [address] [id number] [place] [address] Mar, [facility] [address] [id number] [place] [address] Mar, [facility] [address] [id number] [place] [address] Mar, [facility] [address] [id number] [place] [address] Dec, [facility] [place] [id number] [place] [address] October, [facility] [place] [id number] [place] [address] May, [facility] [place] [id number] [place] [address] May, [facility] [place] [id number] [place] [address] May, [facility] [place] [id number] [place] [address] May, [facility] [place] [id number] [place] [address] Mar, [facility] [place] [id number] [place] [address] Mar, [facility], [place] [id number] [place] [address] May, [facility] [place] [id number] [place] [address] May, [facility] [place] [id number] [place] [address] May, [facility] [place] [id number] [place] [address] May, [facility] [place] [id number] [place] [address] Apr, [facility], [place] [id number] [place] [address] Apr, [facility], [place] [id number] [place] [address] October, IMMUNIZATIONS No Known Immunizations SOCIAL HISTORY Never Assessed REASON FOR VISIT PLAN OF CARE VITAL SIGNS Height 64 in 2013-09-11 Weight 207.06 lbs 2013-09-11 Temperature 97.6 degrees Fahrenheit 2013-09-11 Heart Rate 80 bpm 2013-09-11 Respiratory Rate 18 2013-09-11 Blood pressure systolic 124 mmHg 2013-09-11 Blood pressure diastolic 70 mmHg 2013-09-11 MEDICATIONS Unknown Medications RESULTS No Results PROCEDURES Procedure Date Ordered Result Body Site DRUG SCREEN, QUALITATE/MULTI September 11, 2013 CHROMOSOME STUDY, ADDITIONAL September 11, 2013 INSTRUCTIONS MEDICATIONS ADMINISTERED No Known Medications [...]
--- OUTSIDE RECORDS SUMMARY | 2020-01-13 12:15 | XMS REPORT ---
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 Name Role Phone RASHEED RAHMAN Unavailable PROBLEMS Type Condition ICD9-CM Code WDN82-TU Code Onset Dates Condition S tatus SNOMED Code Problem Panic disorder without agoraphobia F41.0 Active 22161465 Problem Agoraphobia F40.00 Active 69559221 Problem Fatigue R53.83 Active 72517375 Problem Varicose veins of both lower extremities I83.93 Active 70607126 Problem Mild chronic obstructive pulmonary disease J44.9 Active 883359440 Problem Mild persistent asthma without complication J45.30 Active 838500610 Problem Essential hypertension I10 Active 98665577 Problem Snoring R06.83 Active 72066276 Problem On home oxygen therapy Z99.81 Active 978322050016 Problem MRSA (methicillin resistant staph aureus) culture positive Z22.322 Active 450762949 Problem Major depressive disorder, recurrent episode, moderate F33.1 Active 750921867 Problem 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 Active 366669521 Problem Arthritis M19.90 Active 6165466 Problem Major depressive disorder in full remission F32.5 Active 17081205 Problem Social phobia F40.10 Active 544339 02 Problem Impaired circulation I99.9 Active 86056895 Problem Slow transit constipation K59.01 Acti ve 83898153 Problem Neuropathy G62.9 Active 086856020 Problem History of illicit drug use Z87.898 Ac tive 831216100 Problem Dysthymic disorder F34.1 Active 7 7755173 Problem Mood disorder F39 Active 365747 05 Problem Psychotic disorder F29 Active 6 1718927 Problem Hypertension, benign I10 Active 15661048 Problem Onychomycosis B35.1 Active 218076 008 ALLERGIES No Information ENCOUNTERS Encounter Location Date Diagnosis [facility] [id number] [place] [address] Aug, [facility] [address] [address] Jul, [facility] [address] [address] Jul, [facility] [address] [address] Jul, [facility] [address] [address] Jun, [place] [address] [address] Jun, Morbid obesity E66.01 [place] [address] [address] May, Morbid obesity E66.01 [place] [address] [address] May, Encounter for immunization Z23 [place] [address] [address] May, Major depressive disorder, recurrent epi sode, moderate F33.1 ; Panic disorder without agoraphobia F41.0 and Morbid obesity E66.01 [place] [address] [address] May, Major depressive disorder in full remiss ion F32.5 and Panic disorder without agoraphobia F41.0 [place] [address] [address] Apr, Morbid obesity E66.01 [place] [address] [address] Apr, Slow transit constipation K59.01 and Lois lulitis of left lower extremity L03.116 [place] [address] [address] Apr, Morbid obesity E66.01 [place] [address] [address] Apr, [place] [address] [address] Apr, Major depressive disorder, recurrent epi sode, moderate F33.1 and Panic disorder without agoraphobia F41.0 [place] [address] [address] Mar, Viral upper respiratory tract infection J06.9 [place] [address] [address] Mar, Bronchitis J40 and Encounter for immuniz ation Z23 [address] [address] Mar, Morbid obesity E66.[address] [address] Feb, Major depressive disorder, recurrent epi sode, moderate F33.1 and Panic disorder without agoraphobia F41.0 [place] [address] [address] Feb, Morbid obesity E66.[address] [address] Feb, Onychomycosis B35.1 ; Type 2 diabetes me llitus with diabetic neuropathic arthropathy E11.610 and Xerosis of skin L85.[address] [address] Feb, Major depressive disorder, recurrent epi sode, moderate F33.1 ; Panic disorder without agoraphobia F41.0 and Morbid obesity E66.[address] [address] Jan, Major depressive disorder in full remiss ion F32.5 and Panic disorder without agoraphobia F41.[address] [address] Jan, Pneumonia of both lower lobes due to inf ectious organism J18.1 and Morbid obesity E66.01 [place] [address] [address] Jan, [place] [address] [address] Jan, Major depressive disorder in full remiss ion F32.5 and Panic disorder without agoraphobia F41.0 [place] [address] [address] Jan, [place] [address] [address] Jan, Major depressive disorder, recurrent epi sode, moderate F33.1 ; Panic disorder without agoraphobia F41.0 and Morbid obesity E66.01 [place] [address] [address] Dec, Bilious vomiting with nausea R11.14 ; Co ughing R05 and Choking, subsequent encounter T17.308D [place] [address] [address] Dec, Morbid obesity E66.01 [place] [address] [address] Dec, Major depressive disorder, recurrent epi sode, moderate F33.1 and Panic disorder without agoraphobia F41.0 [place] [address] [address] Dec, [place] [address] [address] Dec, Major depressive disorder, recurrent epi sode, moderate F33.1 [place] [address] [address] Nov, Major depressive disorder, recurrent epi sode, moderate F33.1 ; Panic disorder without agoraphobia F41.0 and Morbid obesity E66.01 [place] [address] [address] Nov, Morbid obesity E66.01 [place] [address] [address] Nov, Major depressive disorder, recurrent epi sode, moderate F33.1 and Panic disorder without agoraphobia F41.0 [facility] [address] [address] Nov, Allergic reaction, initial e ncounter T78.40XA and Morbid obesity E66.01 [place] [address] [address] Nov, [address] [address] Nov, Morbid obesity E66.01 ; Swallowing probl em R13.10 and Hypertension, benign I10 [facility] [address] [address] Nov, Morbid obesity E66.01 ; COPD exacerbation J44.1 and Non- recurrent acute suppurative otitis media of left ear without spontaneous rupture of tympanic membrane H66.002 [place] [address] [address] Nov, Onychomycosis B35.1 ; Neuropathy G62.9 a nd Fissure in skin of foot R23.4 [place] [address] [address] October, Major depressive disorder, recurrent epi sode, moderate F33.1 ; Panic disorder without agoraphobia F41.0 and Morbid obesity E66.01 [facility] [place] [address] [address] October, Viral upper respiratory trac t infection J06.9 [place] [address] [address] October, [place] [address] [address] October, Major depressive disorder, recurrent epi sode, moderate F33.1 and Panic disorder without agoraphobia F41.0 [place] [address] [address] October, [facility] [address] [address] October, [facility] [address] [address] October, [facility] [address] [address] October, [facility] [address] [address] October, [facility] [address] [address] October, [place] [address] [address] October, Major depressive disorder, recurrent epi sode, moderate F33.1 and Panic disorder without agoraphobia F41.0 [facility] [address] [address] Sep, Morbid obesity E66.01 and Lumbar neuriti s M54.16 [place] [address] [address] Sep, Panic disorder without agoraphobia F41.0 and Major depressive disorder, recurrent episode, moderate F33.1 [facility] [address] [facility] [id number] [place] [address] Sep, Gastroenteritis K52.9 ; Low back pain M54.5 ; Other chronic pain G89.29 and Morbid obesity E66.01 [facility] [address] [address] Sep, Major depressive disorder, recurrent epi sode, moderate F33.1 ; Panic disorder without agoraphobia F41.0 and Social phobia F40.10 [place] [address] [address] 16 Sep, 2018 Panic disorder without agoraphobia F41.0 [place] [address] [address] Sep, Panic disorder without agoraphobia F41.0 [place] [address] [address] Aug, Panic disorder without agoraphobia F41.0 ; Major depressive disorder, recurrent episode, moderate F33.1 ; Social phobia F40.10 ; Psychotic disorder F29 ; Tardive dyskinesia G24.01 and Morbid obesity E66.01 [place] [address] [address] Aug, Dysthymic disorder F34.1 and Psychotic d isorder F29 [place] [address] [address] Aug, Encounter for Medicare annual wellness e xam Z00.00 ; Morbid obesity E66.01 and Type 2 diabetes mellitus with diabetic neuropathic arthropathy E11.610 [place] [address] [address] Aug, Dysthymic disorder F34.1 and Psychotic d isorder F29 [place] [address] [address] Aug, Neuropathy G62.9 ; Onychomycosis B35.1 a nd Xerosis of skin L85.3 [place] [address] [address] Jul, [place] [address] [address] Jul, Mood disorder F39 ; Wheezing R06.2 ; Diego sanchez, initial encounter T17.308A and Coughing R05 [place] [address] [address] 07 Jul, 2018 Low back pain M54.[address] [facility] [address] [facility] [id number] [address] [place] [address] Jun, Flu-like symptoms R68.89 ; B GA 45.0-49.9, adult Z68.42 ; COPD exacerbation J44.1 and Acute bronchitis J20.9 [place] [address] [address] Jun, [place] [address] [address] May, [place] [address] [address] May, Onychomycosis B35.1 and Type 2 diabetes mellitus with diabetic neuropathic arthropathy E11.610 [place] [address] [address] May, Low back pain M54.5 and Edema leg R60.[address] [address] 11 May, 2018 BMI 45.0-49.9, adult Z68.42 ; Well woman exam with routine gynecological exam Z01.419 and Breast cancer screening Z12.[address] [address] Apr, Arthritis M19.[address] [address] 16 Apr, 2018 Arthritis M19.90 and Otalgia of both ear s H92.03 [place] [address] [address] Feb, [address] [address] Feb, Low back pain M54.5 ; Other chronic pain G89.29 ; Exertional asthma J45.990 and Encounter for immunization Z23 [address] [address] Feb, Skin fissures R23.4 ; Neuropathy G62.9 a nd Onychomycosis B35.1 [place] [address] [address] 05 Feb, 2018 Dysthymic disorder F34.1 [place] [address] [address] Feb, [place] [address] [address] Jan, [place] [address] [address] Jan, Abrasion of right elbow, initial encount er S50.311A ; Abrasion, right knee, initial encounter S80.211A and Sprain of other ligament of right ankle, initial encounter S93.491A [place] [address] [address] Jan, [facility] [address] [facility] [id number] [address] [place] [address] Jan, Injury of left ankle, initia l encounter S99.912A ; Fall down stairs, initial encounter W10.8XXA and BMI 45.0-49.9, adult Z68.42 [place] [address] [address] Jan, COPD exacerbation J44.1 [place] [address] [address] Jan, Dysfunction of both eustachian tubes H69 .83 [place] [address] [address] 08 Jan, 2018 Bronchitis J40 and Acute suppurative giovana tis media of left ear without spontaneous rupture of tympanic membrane, recurrence not specified H66.002 [place] [address] [address] Jan, [place] [address] [address] 03 Jan, 2018 Bronchitis J40 and BMI 40.0-44.9, adult Z68.41 [place] [address] [address] Jan, [place] [address] [address] Dec, Gastric pain R10.9 [place] [address] [address] Dec, [place] [address] [address] Dec, History of illicit drug use Z87.898 ; Ne uropathy G62.9 ; COPD (chronic obstructive pulmonary disease) with chronic bronchitis J44.9 and Acute pain of right knee M25.[address] [address] Nov, [address] [address] Nov, Onychomycosis B35.1 and Contusion of lef t foot, subsequent encounter S90.32XD [address] [address] Nov, COPD exacerbation J44.[address] [address] Sep, [address] [address] Sep, Dysthymic disorder F34.1 ; Tobacco abuse Z72.0 ; Pain in right knee M25.561 ; Pain in left knee M25.562 ; Other chronic pain G89.29 and BMI 40.0- 44.9, adult Z68.41 [place] [address] [address] Aug, Major depressive disorder, recurrent epi sode, moderate F33.1 and Social phobia F40.[address] [address] Aug, Dysthymic disorder F34.1 ; Non-pressure chronic ulcer of left thigh, unspecified ulcer stage L97.129 ; Tobacco abuse Z72.0 ; Mild chronic obstructive pulmonary disease J44.9 and Forgetfulness R68.89 [place] [address] [address] Aug, Onychomycosis B35.1 ; Fissure in skin of foot R23.4 and Foot callus L84 [facility] [address] [place], [place] [id number] [address] [place] [address] Jul, Right medial knee pain M25.5 61 ; Upper respiratory tract infection, unspecified type J06.9 and BMI 40.0-44.9, adult Z68.[address] 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.610 [place] [address] [address] Jan, Onychomycosis B35.1 and Neuropathy G62.9 [place] [address] [address] Dec, [place] [address] [address] Dec, [place] [address] [address] Nov, [place] [address] [address] Aug, [facility] [id number] [place] [address] Aug, [facility] [address] [place] [address] Jul, [facility] [id number] [place] [address] Jul, [facility] [address] [place] [address] Jul, Decubitus ulcer of left thigh, stage 2 L 89.892 [facility] [id number] [place] [address] 17 Jul, 2016 Decubitus ulcer of left thigh, stage 2 L 89.892 [facility] [id number] [place] [address] 17 Jul, 2016 [facility] [address] [place] [address] 15 Jul, 2016 Decubitus ulcer of left thigh, stage 2 L 89.892 [facility] [id number] [place] [address] 14 Jul, 2016 [facility] [address] [place] [address] 13 Jul, 2016 Cellulitis of other specified site L03.8 18 ; Illicit drug use F19.90 and Decubitus ulcer of left thigh, stage 2 L89.892 [facility] [id number] [place] [address] Jul, [facility] [address] [place] [address] Jul, Cellulitis of right breast N61.0 [facility] [address] [place] [address] Jun, [facility] [address] [place] [address] Jun, [facility] [address] [address] 04 Jun, 2016 Wheezing R06.2 and Arthralgia, unspecifi ed joint M25.50 [facility] [address] [address] May, [facility] [address] [address] May, [facility] [address] [address] May, [facility] [address] [address] 05 May, 2016 Shortness of breath R06.02 [place] [address] [address] 02 May, 2016 Onychomycosis B35.1 and Fissure in skin of foot R23.4 [place] [address] [address] Apr, [facility] [address] [facility] [id number] [address] [place] [address] 18 Apr, 2016 Dizziness R42 [place] [address] [address] 14 Apr, 2016 Shortness of breath R06.02 ; Essential h ypertension I10 ; Dizziness R42 and On home oxygen therapy Z99.81 [place] [address] [address] Apr, [facility] [address] [address] 08 Apr, 2016 [facility] [address] [address] Apr, [facility] [address] [address] Apr, [facility] [address] [address] Apr, [place] [address] [address] Apr, [place] [address] [address] Apr, [place] [address] [address] Mar, Mild chronic obstructive pulmonary disea se J44.9 [place] [address] [address] Mar, [place] [address] [address] Mar, Epigastric pain R10.13 ; Low back pain M 54.5 ; Other chronic pain G89.29 and Breast cancer screening Z12.[address] [address] Mar, [address] [address] Mar, [place] [address] [address] Feb, [address] [address] Feb, [address] [address] Feb, Fissure in skin of foot R23.4 and Onycho mycosis B35.[address] [address] Jan, Agoraphobia F40.00 [place] [address] [address] Dec, Agoraphobia F40.[address] [address] Dec, Mild persistent asthma without complicat ion J45.30 ; Dysthymic disorder F34.1 and Upper respiratory tract infection, unspecified type J06.9 [place] [address] [address] Nov, Agoraphobia F40.00 [place] [address] [address] October, Agoraphobia F40.00 [place] [address] [address] Sep, Panic disorder without agoraphobia F41.0 ; Agoraphobia F40.00 and Dysthymic disorder F34.1 [place] [address] [address] Sep, Panic attacks F41.0 [place] [address] [address] Sep, [place] [address] [address] Sep, Panic disorder without agoraphobia F41.0 ; Varicose veins of both lower extremities I83.93 and Fatigue R53.83 [place] [address] [address] Sep, Fatigue R53.83 [place] [address] [address] Sep, [place] [address] [address] Aug, [place] [address] [address] Aug, [place] [address] [address] Aug, Type 2 diabetes mellitus with diabetic n europathic arthropathy E11.610 [place] [address] [address] Aug, Panic disorder without agoraphobia F41.0 ; Agoraphobia F40.00 and Dysthymic disorder F34.1 [place] [address] [address] Aug, Shortness of breath R06.02 ; Panic attac ks F41.0 ; COPD (chronic obstructive pulmonary disease) J44.9 ; Tobacco abuse Z72.0 ; Family history of diabetes mellitus Z83.3 and Weight gain R63.5 [place] [address] [address] Aug, [place] [address] [address] Jul, [place] [address] [address] Jun, Onychomycosis B35.1 ; Neuropathy G62.9 a nd Impaired circulation I99.9 [place] [address] [address] 09 Mar, 2015 Fissure in skin of foot R23.4 ; Onychomy cosis B35.1 and 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 [place] [address] [address] Feb, Family history of coronary arteriosclero sis V17.3 [place] [address] [address] 15 Feb, 2015 Allergic rhinitis due to pollen 477.0 ; Unspecified breast screening V76.10 ; Anxiety 300.00 and Family history of coronary arteriosclerosis V17.3 [place] [address] [address] Jan, [place] [address] [address] Dec, [address] [address] Dec, Onychomycosis 110.1 and Skin fissures 70 9.8 [place] [address] [address] Sep, [place] [address] [address] Sep, [facility] [address] [id number] [place] [address] Aug, [facility] [address] [id number] [place] [address] Aug, [facility] [address] [id number] [place] [address] Jul, [facility] [address] [id number] [place] [address] Jul, [facility] [address] [id number] [place] [address] Jun, [facility] [address] [id number] [place] [address] Jun, [facility] [address] [id number] [place] [address] Jun, [facility] [address] [id number] [place] [address] Jun, [facility] [address] [id number] [place] [address] Jun, [facility] [address] [id number] [place] [address] May, [facility] [address] [id number] [place] [address] May, [facility] [address] [id number] [place] [address] May, [facility] [address] [id number] [place] [address] May, [facility] [address] [id number] [place] [address] May, [facility] [address] [id number] [place] [address] May, [facility] [address] [id number] [place] [address] May, [facility] [address] [id number] [place] [address] May, [facility] [address] [id number] [place] [address] Apr, [facility] [address] [id number] [place] [address] Apr, [facility] [address] [id number] [place] [address] Apr, [facility] [address] [id number] [place] [address] Apr, [facility] [address] [id number] [place] [address] Apr, [facility] [address] [id number] [place] [address] Apr, [facility] [address] [id number] [place] [address] Apr, [facility] [address] [id number] [place] [address] Apr, [facility] [address] [id number] [place] [address] Apr, [facility] [address] [id number] [place] [address] Apr, [facility] [address] [id number] [place] [address] Mar, [facility] [address] [id number] [place] [address] Mar, [facility] [address] [id number] [place] [address] Mar, [facility] [id number] [place] [address] Mar, [facility] [address] [id number] [place] [address] Mar, [facility] [address] [id number] [place] [address] Mar, [facility] [address] [facility] [id number] [place] [address] 27 Mar, 2013 [facility] [address] [facility] [id number] [place] [address] 27 Mar, 2013 [facility] [address] [facility] [facility] [id number] [place] [address] 24 Mar, 2013 [facility] [place] [facility] [address] [facility] [id number] [place] [address] Mar, 2013 [facility] [place] [facility] [address] [facility] [id number] [place] [address] 23 Mar, 2013 [facility] [place] [facility] [address] [id number] [place] [address] Mar, 2013 [facility] [place] [facility] [address] [id number] [place] [address] Mar, 2013 [facility] [place] [facility] [address] [id number] [place] [address] 22 Mar, 2013 [facility] [place] [facility] [address] [facility] [id number] [place] [address] 22 Mar, 2013 [facility] [place] [facility] [address] [id number] [place] [address] 20 Mar, 2013 [facility] [place] [facility] [address] [id number] [place] [address] 20 Mar, 2013 [facility] [place] [facility] [address] [id number] [place] [address] 16 Mar, 2013 [facility] [place] [facility] [address] [facility] [id number] [place] [address] 16 Mar, 2013 [facility] [place] [facility] [address] [facility] [id number] [place] [address] 15 Mar, 2013 [facility] [place] [facility] [address] [facility] [id number] [place] [address] 14 Mar, 2013 [facility] [place] [facility] [address] [id number] [place] [address] 14 Mar, 2013 [facility] [place] [facility] [address] [id number] [place] [address] 14 Mar, 2013 [facility] [place] [facility] [address] [facility] [id number] [place] [address] 14 Mar, 2013 [facility] [place] [facility] [address] [id number] [place] [address] Mar, 2013 [facility] [place] [facility] [address] [id number] [place] [address] 09 Mar, 2013 [facility] [place] [facility] [address] [id number] [place] [address] Mar, 2013 [facility] [place] [facility] [address] [id number] [place] [address] Mar, 2013 [facility] [place] [facility] [address] [id number] [place] [address] 30 Feb, 2013 [facility] [place] [facility] [address] [id number] [place] [address] 30 Sep, 2013 [facility] [place] [facility] [address] [id number] [place] [address] 30 Sep, 2013 [facility] [place] [facility] [address] [id number] [place] [address] 30 Sep, 2013 [facility] [place] [facility] [address] [id number] [place] [address] Sep, 2013 [facility] [place] [facility] [address] [id number] [place] [address] 26 Sep, 2013 [facility] [place] [facility] [address] [id number] [place] [address] 09 Sep, 2013 [facility] [place] [facility] [address] [id number] [place] [address] 09 Sep, 2013 [facility] [place] [facility] [address] [id number] [place] [address] Sep, 2013 [facility] [place] [facility] [address] [id number] [place] [address] Sep, 2013 [facility] [place] [facility] [address] [id number] [place] [address] Sep, 2013 [facility] [place] [facility] [address] [id number] [place] [address] Feb, [facility] [place] [facility] [address] [facility] [id number] [place] [address] Jan, [facility] [place] [facility] [address] [facility] [id number] [place] [address] Jan, [facility] [place] [facility] [address] [id number] [place] [address] Jan, [facility] [place] [facility] [address] [facility] [id number] [place] [address] Jan, [facility] [place] [facility] [address] [facility] [id number] [place] [address] Jan, [facility] [place] [facility] [address] [id number] [place] [address] Jan, [facility] [place] [facility] [address] [id number] [place] [address] Jan, [facility] [place] [facility] [address] [id number] [place] [address] Jan, [facility] [place] [facility] [address] [id number] [place] [address] Jan, [facility] [place] [facility] [address] [id number] [place] [address] Jan, [facility] [place] [facility] [address] [id number] [place] [address] Jan, [facility] [place] [facility] [address] [id number] [place] [address] Jan, [facility] [place] [facility] [address] [facility] [id number] [place] [address] Jan, [facility] [place] [facility] [address] [id number] [place] [address] Dec, [facility] [place] [facility] [address] [id number] [place] [address] Dec, [facility] [place] [facility] [address] [id number] [place] [address] Dec, [facility] [place] [facility] [address] [id number] [place] [address] Dec, 2013 [facility] [place] [facility] [address] [id number] [place] [address] Dec, 2013 [facility] [place] [facility] [address] [facility] [id number] [place] [address] Dec, 2013 [facility] [place] [facility] [address] [facility] [id number] [place] [address] Dec, 2013 [facility] [place] [facility] [address] [facility] [id number] [place] [address] Dec, 2013 [facility] [place] [facility] [address] [facility] [id number] [place] [address] Dec, 2013 [facility] [place] [facility] [address] [facility] [id number] [place] [address] Dec, 2013 [facility] [place] [facility] [address] [id number] [place] [address] Dec, 2013 [facility] [place] [facility] [address] [facility] [id number] [place] [address] Dec, 2013 [facility] [place] [facility] [address] [id number] [place] [address] Dec, 2013 [facility] [place] [facility] [address] [id number] [place] [address] Dec, 2013 [facility] [place] [facility] [address] [id number] [place] [address] Dec, 2013 [facility] [place] [facility] [address] [facility] [id number] [place] [address] Dec, 2013 [facility] [place] [facility] [address] [facility] [id number] [place] [address] Dec, 2013 [facility] [place] [facility] [address] [facility] [id number] [place] [address] Dec, 2013 [facility] [place] [facility] [address] [id number] [place] [address] Nov, 2013 [facility] [place] [facility] [address] [facility] [id number] [place] [address] Nov, [facility] [place] [facility] [address] [facility] [id number] [place] [address] Nov, [facility] [place] [facility] [address] [facility] [id number] [place] [address] Nov, [facility] [place] [facility] [address] [id number] [place] [address] Nov, [facility] [place] [facility] [address] [facility] [id number] [place] [address] Nov, [facility] [place] [facility] [address] [facility] [id number] [place] [address] Nov, [facility] [place] [facility] [address] [id number] [place] [address] Nov, [facility] [place] [facility] [address] [id number] [place] [address] Nov, [facility] [place] [facility] [address] [id number] [place] [address] Nov, [facility] [place] [facility] [address] [facility] [id number] [place] [address] Nov, [facility] [place] [facility] [address] [id number] [place] [address] Nov, [facility] [place] [facility] [address] [id number] [place] [address] Nov, [facility] [place] [facility] [address] [id number] [place] [address] Nov, [facility] [place] [facility] [address] [facility] [id number] [place] [address] Nov, [facility] [place] [facility] [address] [id number] [place] [address] Nov, [facility] [place] [facility] [address] [facility] [id number] [place] [address] Nov, [facility] [place] [facility] [address] [id number] [place] [address] Nov, [facility] [place] [facility] [address] [id number] [place] [address] Nov, [facility] [place] [facility] [address] [id number] [place] [address] Nov, [facility] [place] [facility] [address] [id number] [place] [address] October, [facility] [place] [facility] [address] [id number] [place] [address] October, [facility] [place] [facility] [address] [id number] [place] [address] October, [facility] [place] [facility] [address] [id number] [place] [address] October, [facility] [place] [facility] [address] [id number] [place] [address] Sep, [facility] [place] [facility] [address] [id number] [place] [address] Sep, [facility] [place] [facility] [address] [id number] [place] [address] Sep, [facility] [place] [facility] [address] [id number] [place] [address] Sep, [facility] [place] [facility] [address] [id number] [place] [address] Sep, [facility] [place] [facility] [address] [id number] [place] [address] Sep, [facility] [place] [facility] [address] [id number] [place] [address] Sep, [facility] [place] [facility] [address] [id number] [place] [address] Sep, [facility] [place] [facility] [address] [id number] [place] [address] Sep, [facility] [place] [facility] [address] [id number] [place] [address] Aug, [facility] [place] [facility] [address] [id number] [place] [address] Aug, [facility] [place] [facility] [address] [facility] [id number] [place] [address] Aug, [facility] [place] [facility] [address] [facility] [id number] [place] [address] Aug, [facility] [place] [facility] [address] [facility] [id number] [place] [address] Aug, [facility] [place] [facility] [address] [id number] [place] [address] Aug, [facility] [place] [facility] [address] [facility] [id number] [place] [address] Aug, [facility] [place] [facility] [address] [id number] [place] [address] Aug, [facility] [place] [facility] [address] [id number] [place] [address] Jul, [facility] [place] [facility] [address] [id number] [place] [address] Jul, [facility] [place] [facility] [address] [id number] [place] [address] Jun, [facility] [place] [facility] [address] [id number] [place] [address] Jun, [facility] [place] [facility] [address] [id number] [place] [address] Jun, [facility] [place] [facility] [address] [id number] [place] [address] Jun, [facility] [place] [facility] [address] [facility] [id number] [place] [address] Jun, [facility] [place] [facility] [address] [facility] [id number] [place] [address] Jun, [facility] [place] [facility] [address] [id number] [place] [address] Jun, [facility] [place] [facility] [address] [id number] [place] [address] Jun, [facility] [place] [facility] [address] [id number] [place] [address] 15 Jun, 2013 [facility] [place] [facility] [address] [id number] [place] [address] 14 Jun, 2013 [facility] [place] [facility] [address] [id number] [place] [address] Jun, [facility] [place] [facility] [address] [id number] [place] [address] Jun, [facility] [place] [facility] [address] [id number] [place] [address] May, [facility] [place] [facility] [address] [id number] [place] [address] May, [facility] [place] [facility] [address] [id number] [place] [address] May, [facility] [place] [facility] [address] [id number] [place] [address] May, [facility] [place] [facility] [address] [id number] [place] [address] May, [facility] [place] [facility] [address] [id number] [place] [address] May, [facility] [place] [facility] [address] [id number] [place] [address] 26 May, 2013 [facility] [place] [facility] [address] [id number] [place] [address] May, [facility] [place] [facility] [address] [id number] [place] [address] 23 May, 2013 [facility] [place] [facility] [address] [id number] [place] [address] 16 May, 2013 [facility] [place] [facility] [address] [id number] [place] [address] 16 May, 2013 [facility] [place] [facility] [address] [id number] [place] [address] 16 May, 2013 [facility] [place] [facility] [address] [id number] [place] [address] 16 May, 2013 [facility] [place] [facility] [address] [id number] [place] [address] Apr, [facility] [place] [facility] [address] [id number] [place] [address] Apr, [facility] [place] [facility] [address] [id number] [place] [address] Mar, [facility] [place] [facility] [address] [id number] [place] [address] Mar, [facility] [place] [facility] [address] [id number] [place] [address] Feb, [facility] [place] [facility] [address] [id number] [place] [address] Feb, [facility] [place] [facility] [address] [id number] [place] [address] Feb, [facility] [place] [facility] [address] [id number] [place] [address] Feb, [facility] [place] [facility] [address] [id number] [place] [address] Jan, [facility] [place] [facility] [address] [id number] [place] [address] Jan, [facility] [place] [facility] [address] [id number] [place] [address] Jan, [facility] [place] [facility] [address] [id number] [place] [address] Jan, [facility] [place] [facility] [address] [id number] [place] [address] Jan, [facility] [place] [facility] [address] [id number] [place] [address] Jan, [facility] [place] [facility] [address] [id number] [place] [address] Dec, [facility] [place] [facility] [address] [id number] [place] [address] Dec, [facility] [place] [facility] [address] [id number] [place] [address] Dec, [facility] [place] [facility] [address] [id number] [place] [address] Dec, [facility] [place] [facility] [address] [id number] [place] [address] Nov, [facility] [place] [facility] [address] [id number] [place] [address] October, [facility] [place] [facility] [address] [id number] [place] [address] October, [facility] [place] [facility] [address] [id number] [place] [address] October, [facility] [place] [facility] [address] [id number] [place] [address] Sep, [facility] [place] [facility] [address] [id number] [place] [address] Sep, [facility] [place] [facility] [address] [id number] [place] [address] Jun, [facility] [place] [facility] [address] [id number] [place] [address] Jun, [facility] [place] [facility] [address] [id number] [place] [address] Jun, [facility] [place] [facility] [address] [id number] [place] [address] Apr, [facility] [place] [facility] [address] [id number] [place] [address] Apr, [facility] [place] [facility] [address] [id number] [place] [address] Apr, [facility] [place] [facility] [address] [id number] [place] [address] Apr, [facility] [place] [facility] [address] [id number] [place] [address] Mar, [facility] [place] [facility] [address] [id number] [place] [address] Mar, [facility] [address] [id number] [place] [address] Mar, [facility] [id number] [place] [address] Mar, [facility] [address] [id number] [place] [address] Feb, [facility] [address] [id number] [place] [address] Feb, [facility] [address] [id number] [place] [address] Feb, [facility] [address] [id number] [place] [address] Jan, [facility] [address] [id number] [place] [address] Jan, [facility] [address] [id number] [place] [address] Jan, [facility] [address] [id number] [place] [address] Jan, [facility] [address] [id number] [place] [address] Dec, [facility] [address] [id number] [place] [address] Dec, [facility] [address] [id number] [place] [address] Nov, [facility] [address] [id number] [place] [address] Nov, [facility] [address] [id number] [place] [address] October, [facility] [id number] [place] [address] October, [facility] [address] [id number] [place] [address] October, [facility] [address] [id number] [place] [address] Sep, [facility] [address] [id number] [place] [address] Sep, [facility] [address] [id number] [place] [address] Sep, [facility] [address] [id number] [place] [address] Aug, [facility] [address] [id number] [place] [address] Aug, [facility] [address] [id number] [place] [address] Aug, [facility] [address] [id number] [place] [address] 15 Aug, 2011 [facility] [address] [id number] [place] [address] Aug, [facility] [address] [id number] [place] [address] Jul, [facility] [address] [id number] [place] [address] 16 Jul, 2011 [facility] [address] [id number] [place] [address] Jul, [facility] [address] [id number] [place] [address] Jul, [facility] [address] [id number] [place] [address] Jul, [facility] [address] [id number] [place] [address] 06 Jul, 2011 [facility] [address] [id number] [place] [address] Jul, [facility] [address] [id number] [place] [address] Jul, [facility] [address] [id number] [place] [address] Jun, [facility] [address] [id number] [place] [address] Jun, [facility] [address] [id number] [place] [address] May, [facility] [address] [id number] [place] [address] May, [facility] [address] [id number] [place] [address] May, [facility] [address] [id number] [place] [address] May, [facility] [address] [id number] [place] [address] Apr, [facility] [address] [id number] [place] [address] Apr, [facility] [address] [id number] [place] [address] Apr, [facility] [address] [id number] [place] [address] Mar, [facility] [address] [id number] [place] [address] Mar, [facility] [address] [id number] [place] [address] Mar, [facility] [address] [id number] [place] [address] Mar, [facility] [id number] [place] [address] Dec, [facility] [address] [id number] [place] [address] October, [facility] [address] [id number] [place] [address] May, [facility] [address] [id number] [place] [address] May, [facility] [address] [id number] [place] [address] May, [facility] [address] [id number] [place] [address] May, [facility] [address] [id number] [place] [address] Mar, [facility] [address] [id number] [place] [address] Mar, [facility] [id number] [place] [address] May, [facility] [id number] [place] [address] May, [facility] [address] [address] May, [facility] [id number] [place] [address] May, [facility] [id number] [place] [address] Apr, [facility] [id number] [place] [address] Apr, [facility] [address] [id number] [place] [address] October, IMMUNIZATIONS No Known Immunizations SOCIAL HISTORY [...]
--- OUTSIDE RECORDS SUMMARY | 2020-01-13 12:15 | XMS REPORT ---
Author Author Monique RAHMAN Organization [facility] Address [address] [place] [address] Care Team Providers Care Arc Cutter Plasma Arc Name Role Phone RASHEED RAHMAN Unavailable PROBLEMS Type Condition ICD9-CM Code [id number] Code Onset Dates Condition S tatus SNOMED Code Problem Panic disorder without agoraphobia F41.0 Active 64413737 Problem Agoraphobia F40.00 Active 08626513 Problem Fatigue R53.83 Active 86385918 Problem Varicose veins of both lower extremities I83.93 Active 03263289 Problem Mild chronic obstructive pulmonary disease J44.9 Active 472214255 Problem Mild persistent asthma without complication J45.30 Active 532957581 Problem Essential hypertension I10 Active 55330334 Problem Snoring R06.83 Active 67218903 Problem On home oxygen therapy Z99.81 Active 712946682221 Problem MRSA (methicillin resistant staph aureus) culture positive Z22.322 Active 546153174 Problem Major depressive disorder, recurrent episode, moderate F33.1 Active 777384755 Problem 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 Active 623055620 Problem Arthritis M19.90 Active 0515022 Problem Major depressive disorder in full remission F32.5 Active 55535620 Problem Social phobia F40.10 Active 213050 02 Problem Impaired circulation I99.9 Active 43803051 Problem Slow transit constipation K59.01 Acti ve 90372236 Problem Neuropathy G62.9 Active 202609322 Problem History of illicit drug use Z87.898 Ac tive 231680093 Problem Dysthymic disorder F34.1 Active 7 3670266 Problem Mood disorder F39 Active 129115 05 Problem Psychotic disorder F29 Active 6 4180328 Problem Hypertension, benign I10 Active 51526574 Problem Onychomycosis B35.1 Active 706987 008 ALLERGIES No Information ENCOUNTERS Encounter Location Date Diagnosis [facility] [id number] [place] [address] Aug, [facility] [address] [address] Jul, [facility] [address] [address] Jul, [facility] [address] [address] Jul, [facility] [address] [address] Jun, [place] [address] [address] Jun, Morbid obesity E66.01 [place] [address] [address] May, Morbid obesity E66.01 [place] [address] [address] May, Encounter for immunization Z23 [place] [address] [address] May, Major depressive disorder, recurrent epi sode, moderate F33.1 ; Panic disorder without agoraphobia F41.0 and Morbid obesity E66.01 [place] [address] [address] May, Major depressive disorder in full remiss ion F32.5 and Panic disorder without agoraphobia F41.0 [place] [address] [address] Apr, Morbid obesity E66.01 [place] [address] [address] Apr, Slow transit constipation K59.01 and Lois lulitis of left lower extremity L03.116 [place] [address] [address] Apr, Morbid obesity E66.01 [place] [address] [address] Apr, [place] [address] [address] Apr, Major depressive disorder, recurrent epi sode, moderate F33.1 and Panic disorder without agoraphobia F41.0 [place] [address] [address] Mar, Viral upper respiratory tract infection J06.9 [place] [address] [address] Mar, Bronchitis J40 and Encounter for immuniz ation Z23 [address] [address] Mar, Morbid obesity E66.[address] [address] Feb, Major depressive disorder, recurrent epi sode, moderate F33.1 and Panic disorder without agoraphobia F41.0 [place] [address] [address] Feb, Morbid obesity E66.[address] [address] Feb, Onychomycosis B35.1 ; Type 2 diabetes me llitus with diabetic neuropathic arthropathy E11.610 and Xerosis of skin L85.[address] [address] Feb, Major depressive disorder, recurrent epi sode, moderate F33.1 ; Panic disorder without agoraphobia F41.0 and Morbid obesity E66.[address] [address] Jan, Major depressive disorder in full remiss ion F32.5 and Panic disorder without agoraphobia F41.[address] [address] Jan, Pneumonia of both lower lobes due to inf ectious organism J18.1 and Morbid obesity E66.01 [place] [address] [address] Jan, [place] [address] [address] Jan, Major depressive disorder in full remiss ion F32.5 and Panic disorder without agoraphobia F41.0 [place] [address] [address] Jan, [place] [address] [address] Jan, Major depressive disorder, recurrent epi sode, moderate F33.1 ; Panic disorder without agoraphobia F41.0 and Morbid obesity E66.01 [place] [address] [address] Dec, Bilious vomiting with nausea R11.14 ; Co ughing R05 and Choking, subsequent encounter T17.308D [place] [address] [address] Dec, Morbid obesity E66.01 [place] [address] [address] Dec, Major depressive disorder, recurrent epi sode, moderate F33.1 and Panic disorder without agoraphobia F41.0 [place] [address] [address] Dec, [place] [address] [address] Dec, Major depressive disorder, recurrent epi sode, moderate F33.1 [place] [address] [address] Nov, Major depressive disorder, recurrent epi sode, moderate F33.1 ; Panic disorder without agoraphobia F41.0 and Morbid obesity E66.01 [place] [address] [address] Nov, Morbid obesity E66.01 [place] [address] [address] Nov, Major depressive disorder, recurrent epi sode, moderate F33.1 and Panic disorder without agoraphobia F41.0 [facility] [address] [address] Nov, Allergic reaction, initial e ncounter T78.40XA and Morbid obesity E66.01 [place] [address] [address] Nov, [address] [address] Nov, Morbid obesity E66.01 ; Swallowing probl em R13.10 and Hypertension, benign I10 [facility] [address] [address] Nov, Morbid obesity E66.01 ; COPD exacerbation J44.1 and Non- recurrent acute suppurative otitis media of left ear without spontaneous rupture of tympanic membrane H66.002 [place] [address] [address] Nov, Onychomycosis B35.1 ; Neuropathy G62.9 a nd Fissure in skin of foot R23.4 [place] [address] [address] October, Major depressive disorder, recurrent epi sode, moderate F33.1 ; Panic disorder without agoraphobia F41.0 and Morbid obesity E66.01 [facility] [place] [address] [address] October, Viral upper respiratory trac t infection J06.9 [place] [address] [address] October, [place] [address] [address] October, Major depressive disorder, recurrent epi sode, moderate F33.1 and Panic disorder without agoraphobia F41.0 [place] [address] [address] October, [facility] [address] [address] October, [facility] [address] [address] October, [facility] [address] [address] October, [facility] [address] [address] October, [facility] [address] [address] October, [place] [address] [address] October, Major depressive disorder, recurrent epi sode, moderate F33.1 and Panic disorder without agoraphobia F41.0 [facility] [address] [address] Sep, Morbid obesity E66.01 and Lumbar neuriti s M54.16 [place] [address] [address] Sep, Panic disorder without agoraphobia F41.0 and Major depressive disorder, recurrent episode, moderate F33.1 [facility] [address] [facility] [id number] [place] [address] Sep, Gastroenteritis K52.9 ; Low back pain M54.5 ; Other chronic pain G89.29 and Morbid obesity E66.01 [facility] [address] [address] Sep, Major depressive disorder, recurrent epi sode, moderate F33.1 ; Panic disorder without agoraphobia F41.0 and Social phobia F40.10 [place] [address] [address] 16 Sep, 2018 Panic disorder without agoraphobia F41.0 [place] [address] [address] Sep, Panic disorder without agoraphobia F41.0 [place] [address] [address] Aug, Panic disorder without agoraphobia F41.0 ; Major depressive disorder, recurrent episode, moderate F33.1 ; Social phobia F40.10 ; Psychotic disorder F29 ; Tardive dyskinesia G24.01 and Morbid obesity E66.01 [place] [address] [address] Aug, Dysthymic disorder F34.1 and Psychotic d isorder F29 [place] [address] [address] Aug, Encounter for Medicare annual wellness e xam Z00.00 ; Morbid obesity E66.01 and Type 2 diabetes mellitus with diabetic neuropathic arthropathy E11.610 [place] [address] [address] Aug, Dysthymic disorder F34.1 and Psychotic d isorder F29 [place] [address] [address] Aug, Neuropathy G62.9 ; Onychomycosis B35.1 a nd Xerosis of skin L85.3 [place] [address] [address] Jul, [place] [address] [address] Jul, Mood disorder F39 ; Wheezing R06.2 ; Diego sanchez, initial encounter T17.308A and Coughing R05 [place] [address] [address] 07 Jul, 2018 Low back pain M54.5 [facility] [address] [facility] [id number] [address] [place] [address] Jun, Flu-like symptoms R68.89 ; B WI 45.0-49.9, adult Z68.42 ; COPD exacerbation J44.1 and Acute bronchitis J20.9 [place] [address] [address] Jun, [place] [address] [address] May, [place] [address] [address] May, Onychomycosis B35.1 and Type 2 diabetes mellitus with diabetic neuropathic arthropathy E11.610 [place] [address] [address] May, Low back pain M54.5 and Edema leg R60.[address] [address] 11 May, 2018 BMI 45.0-49.9, adult Z68.42 ; Well woman exam with routine gynecological exam Z01.419 and Breast cancer screening Z12.[address] [address] Apr, Arthritis M19.[address] [address] 16 Apr, 2018 Arthritis M19.90 and Otalgia of both ear s H92.03 [place] [address] [address] Feb, [address] [address] Feb, Low back pain M54.5 ; Other chronic pain G89.29 ; Exertional asthma J45.990 and Encounter for immunization Z23 [address] [address] Feb, Skin fissures R23.4 ; Neuropathy G62.9 a nd Onychomycosis B35.1 [place] [address] [address] 05 Feb, 2018 Dysthymic disorder F34.1 [place] [address] [address] Feb, [place] [address] [address] Jan, [place] [address] [address] Jan, Abrasion of right elbow, initial encount er S50.311A ; Abrasion, right knee, initial encounter S80.211A and Sprain of other ligament of right ankle, initial encounter S93.491A [place] [address] [address] Jan, [facility] [address] [facility] [id number] [address] [place] [address] Jan, Injury of left ankle, initia l encounter S99.912A ; Fall down stairs, initial encounter W10.8XXA and BMI 45.0-49.9, adult Z68.42 [place] [address] [address] Jan, COPD exacerbation J44.1 [place] [address] [address] Jan, Dysfunction of both eustachian tubes H69 .83 [place] [address] [address] 08 Jan, 2018 Bronchitis J40 and Acute suppurative giovana tis media of left ear without spontaneous rupture of tympanic membrane, recurrence not specified H66.002 [place] [address] [address] Jan, [place] [address] [address] 03 Jan, 2018 Bronchitis J40 and BMI 40.0-44.9, adult Z68.41 [place] [address] [address] Jan, [place] [address] [address] Dec, Gastric pain R10.9 [place] [address] [address] Dec, [place] [address] [address] Dec, History of illicit drug use Z87.898 ; Ne uropathy G62.9 ; COPD (chronic obstructive pulmonary disease) with chronic bronchitis J44.9 and Acute pain of right knee M25.[address] [address] Nov, [address] [address] Nov, Onychomycosis B35.1 and Contusion of lef t foot, subsequent encounter S90.32XD [address] [address] Nov, COPD exacerbation J44.[address] [address] Sep, [address] [address] Sep, Dysthymic disorder F34.1 ; Tobacco abuse Z72.0 ; Pain in right knee M25.561 ; Pain in left knee M25.562 ; Other chronic pain G89.29 and BMI 40.0- 44.9, adult Z68.41 [place] [address] [address] Aug, Major depressive disorder, recurrent epi sode, moderate F33.1 and Social phobia F40.[address] [address] Aug, Dysthymic disorder F34.1 ; Non-pressure chronic ulcer of left thigh, unspecified ulcer stage L97.129 ; Tobacco abuse Z72.0 ; Mild chronic obstructive pulmonary disease J44.9 and Forgetfulness R68.89 [place] [address] [address] Aug, Onychomycosis B35.1 ; Fissure in skin of foot R23.4 and Foot callus L84 [facility] [address] [place], [place] [id number] [address] [place] [address] Jul, Right medial knee pain M25.5 61 ; Upper respiratory tract infection, unspecified type J06.9 and BMI 40.0-44.9, adult Z68.41 [facility] [address] [address] Jul, Nausea and vomiting, intract ability of vomiting not specified, unspecified vomiting type R11.2 ; Left ear pain H92.02 and Gastric pain R10.9 [place] [address] [address] Apr, Encounter for immunization Z23 [address] [address] Apr, Onychomycosis B35.1 ; Xerosis of skin L8 5.3 ; Neuropathy G62.9 and 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.610 [place] [address] [address] Jan, Onychomycosis B35.1 and Neuropathy G62.9 [place] [address] [address] Dec, [place] [address] [address] Dec, [place] [address] [address] Nov, [place] [address] [address] Aug, [facility] [id number] [place] [address] Aug, [facility] [id number] [place] [address] Jul, [facility] [id number] [place] [address] Jul, [facility] [id number] [place] [address] Jul, Decubitus ulcer of left thigh, stage 2 L 89.892 [facility] [id number] [place] [address] 17 Jul, 2016 Decubitus ulcer of left thigh, stage 2 L 89.892 [facility] [id number] [place] [address] 17 Jul, 2016 [facility] [id number] [place] [address] 15 Jul, 2016 Decubitus ulcer of left thigh, stage 2 L 89.892 [facility] [id number] [place] [address] 14 Jul, 2016 [facility] [id number] [place] [address] 13 Jul, 2016 Cellulitis of other specified site L03.8 18 ; Illicit drug use F19.90 and Decubitus ulcer of left thigh, stage 2 L89.892 [facility] [id number] [place] [address] Jul, [facility] [id number] [place] [address] Jul, Cellulitis of right breast N61.0 [facility] [id number] [place] [address] Jun, [facility] [id number] [place] [address] Jun, [facility] [address] [address] 04 Jun, 2016 Wheezing R06.2 and Arthralgia, unspecifi ed joint M25.50 [facility] [address] [address] May, [facility] [address] [address] May, [facility] [address] [address] May, [facility] [address] [address] 05 May, 2016 Shortness of breath R06.02 [place] [address] [address] 02 May, 2016 Onychomycosis B35.1 and Fissure in skin of foot R23.4 [place] [address] [address] Apr, [facility] [address] [facility] [id number] [address] [place] [address] 18 Apr, 2016 Dizziness R42 [place] [address] [address] 14 Apr, 2016 Shortness of breath R06.02 ; Essential h ypertension I10 ; Dizziness R42 and On home oxygen therapy Z99.81 [place] [address] [address] Apr, [facility] [address] [address] 08 Apr, 2016 [facility] [address] [address] Apr, [facility] [address] [address] Apr, [facility] [address] [address] Apr, [place] [address] [address] Apr, [place] [address] [address] Apr, [place] [address] [address] Mar, Mild chronic obstructive pulmonary disea se J44.9 [place] [address] [address] Mar, [place] [address] [address] Mar, Epigastric pain R10.13 ; Low back pain M 54.5 ; Other chronic pain G89.29 and Breast cancer screening Z12.[address] [address] Mar, [address] [address] Mar, [place] [address] [address] Feb, [address] [address] Feb, [address] [address] Feb, Fissure in skin of foot R23.4 and Onycho mycosis B35.[address] [address] Jan, Agoraphobia F40.00 [place] [address] [address] Dec, Agoraphobia F40.[address] [address] Dec, Mild persistent asthma without complicat ion J45.30 ; Dysthymic disorder F34.1 and Upper respiratory tract infection, unspecified type J06.9 [place] [address] [address] Nov, Agoraphobia F40.00 [place] [address] [address] October, Agoraphobia F40.00 [place] [address] [address] Sep, Panic disorder without agoraphobia F41.0 ; Agoraphobia F40.00 and Dysthymic disorder F34.1 [place] [address] [address] Sep, Panic attacks F41.0 [place] [address] [address] Sep, [place] [address] [address] Sep, Panic disorder without agoraphobia F41.0 ; Varicose veins of both lower extremities I83.93 and Fatigue R53.83 [place] [address] [address] Sep, Fatigue R53.83 [place] [address] [address] Sep, [place] [address] [address] Aug, [place] [address] [address] Aug, [place] [address] [address] Aug, Type 2 diabetes mellitus with diabetic n europathic arthropathy E11.610 [place] [address] [address] Aug, Panic disorder without agoraphobia F41.0 ; Agoraphobia F40.00 and Dysthymic disorder F34.1 [place] [address] [address] Aug, Shortness of breath R06.02 ; Panic attac ks F41.0 ; COPD (chronic obstructive pulmonary disease) J44.9 ; Tobacco abuse Z72.0 ; Family history of diabetes mellitus Z83.3 and Weight gain R63.5 [place] [address] [address] Aug, [place] [address] [address] Jul, [place] [address] [address] Jun, Onychomycosis B35.1 ; Neuropathy G62.9 a nd Impaired circulation I99.9 [place] [address] [address] 09 Mar, 2015 Fissure in skin of foot R23.4 ; Onychomy cosis B35.1 and 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 [place] [address] [address] Feb, Family history of coronary arteriosclero sis V17.3 [place] [address] [address] 15 Feb, 2015 Allergic rhinitis due to pollen 477.0 ; Unspecified breast screening V76.10 ; Anxiety 300.00 and Family history of coronary arteriosclerosis V17.3 [place] [address] [address] Jan, [place] [address] [address] Dec, [address] [address] Dec, Onychomycosis 110.1 and Skin fissures 70 9.8 [place] [address] [address] Sep, [place] [address] [address] Sep, [facility] [address] [id number] [place] [address] Aug, [facility] [address] [id number] [place] [address] Aug, [facility] [address] [id number] [place] [address] Jul, [facility] [address] [id number] [place] [address] Jul, [facility] [address] [id number] [place] [address] Jun, [facility] [address] [id number] [place] [address] Jun, [facility] [address] [id number] [place] [address] Jun, [facility] [address] [id number] [place] [address] Jun, [facility] [address] [id number] [place] [address] Jun, [facility] [address] [id number] [place] [address] May, [facility] [address] [id number] [place] [address] May, [facility] [address] [id number] [place] [address] May, [facility] [address] [id number] [place] [address] May, [facility] [address] [id number] [place] [address] May, [facility] [address] [id number] [place] [address] May, [facility] [address] [id number] [place] [address] May, [facility] [address] [id number] [place] [address] May, [facility] [address] [id number] [place] [address] Apr, [facility] [address] [id number] [place] [address] Apr, [facility] [address] [id number] [place] [address] Apr, [facility] [address] [id number] [place] [address] Apr, [facility] [address] [id number] [place] [address] Apr, [facility] [address] [id number] [place] [address] Apr, [facility] [address] [id number] [place] [address] Apr, [facility] [address] [id number] [place] [address] Apr, [facility] [address] [id number] [place] [address] Apr, [facility] [address] [id number] [place] [address] Apr, [facility] [address] [id number] [place] [address] Mar, [facility] [address] [id number] [place] [address] Mar, [facility] [address] [id number] [place] [address] Mar, [facility] [id number] [place] [address] Mar, [facility] [address] [id number] [place] [address] Mar, [facility] [address] [id number] [place] [address] Mar, [facility] [address] [facility] [id number] [place] [address] 27 Mar, 2013 [facility] [address] [facility] [id number] [place] [address] 27 Mar, 2013 [facility] [address] [facility] [id number] [place] [address] 24 Mar, 2013 [facility] [address] [facility] [id number] [place] [address] Mar, 2013 [facility] [address] [facility] [id number] [place] [address] 23 Mar, 2013 [facility] [place] [facility] [address] [id number] [place] [address] Mar, 2013 [facility] [place] [facility] [address] [id number] [place] [address] Mar, 2013 [facility] [place] [facility] [address] [id number] [place] [address] 22 Mar, 2013 [facility] [place] [facility] [address] [facility] [id number] [place] [address] 22 Mar, 2013 [facility] [place] [facility] [address] [id number] [place] [address] 20 Mar, 2013 [facility] [place] [facility] [address] [id number] [place] [address] 20 Mar, 2013 [facility] [place] [facility] [address] [id number] [place] [address] 16 Mar, 2013 [facility] [place] [facility] [address] [facility] [id number] [place] [address] 16 Mar, 2013 [facility] [place] [facility] [address] [facility] [id number] [place] [address] 15 Mar, 2013 [facility] [place] [facility] [address] [facility] [id number] [place] [address] 14 Mar, 2013 [facility] [place] [facility] [address] [id number] [place] [address] 14 Mar, 2013 [facility] [place] [facility] [address] [id number] [place] [address] 14 Mar, 2013 [facility] [place] [facility] [address] [facility] [id number] [place] [address] 14 Mar, 2013 [facility] [place] [facility] [address] [id number] [place] [address] Mar, 2013 [facility] [place] [facility] [address] [id number] [place] [address] 09 Mar, 2013 [facility] [place] [facility] [address] [id number] [place] [address] Mar, 2013 [facility] [place] [facility] [address] [id number] [place] [address] Mar, 2013 [facility] [place] [facility] [address] [id number] [place] [address] 30 Feb, 2013 [facility] [place] [facility] [address] [id number] [place] [address] 30 Sep, 2013 [facility] [place] [facility] [address] [id number] [place] [address] 30 Sep, 2013 [facility] [place] [facility] [address] [id number] [place] [address] 30 Sep, 2013 [facility] [place] [facility] [address] [id number] [place] [address] Sep, 2013 [facility] [place] [facility] [address] [id number] [place] [address] 26 Sep, 2013 [facility] [place] [facility] [address] [id number] [place] [address] 09 Sep, 2013 [facility] [place] [facility] [address] [id number] [place] [address] 09 Sep, 2013 [facility] [place] [facility] [address] [id number] [place] [address] Sep, 2013 [facility] [place] [facility] [address] [id number] [place] [address] Sep, 2013 [facility] [place] [facility] [address] [id number] [place] [address] Sep, 2013 [facility] [place] [facility] [address] [id number] [place] [address] Feb, [facility] [place] [facility] [address] [facility] [id number] [place] [address] Jan, [facility] [place] [facility] [address] [facility] [id number] [place] [address] Jan, [facility] [place] [facility] [address] [id number] [place] [address] Jan, [facility] [place] [facility] [address] [facility] [id number] [place] [address] Jan, [facility] [place] [facility] [address] [facility] [id number] [place] [address] Jan, [facility] [place] [facility] [address] [id number] [place] [address] Jan, [facility] [place] [facility] [address] [id number] [place] [address] Jan, [facility] [place] [facility] [address] [id number] [place] [address] Jan, [facility] [place] [facility] [address] [id number] [place] [address] Jan, [facility] [place] [facility] [address] [id number] [place] [address] Jan, [facility] [place] [facility] [address] [id number] [place] [address] Jan, [facility] [place] [facility] [address] [id number] [place] [address] Jan, [facility] [place] [facility] [address] [facility] [id number] [place] [address] Jan, [facility] [place] [facility] [address] [id number] [place] [address] Dec, [facility] [place] [facility] [address] [id number] [place] [address] Dec, [facility] [place] [facility] [address] [id number] [place] [address] Dec, [facility] [place] [facility] [address] [id number] [facility] [place] [address] Dec, 2013 [facility] [place] [facility] [address] [id number] [place] [address] Dec, 2013 [facility] [place] [facility] [address] [facility] [id number] [facility] [place] [address] Dec, 2013 [facility] [place] [facility] [address] [facility] [id number] [place] [address] Dec, 2013 [facility] [place] [facility] [address] [facility] [id number] [place] [address] Dec, 2013 [facility] [place] [facility] [address] [facility] [id number] [place] [address] Dec, 2013 [facility] [place] [facility] [address] [facility] [id number] [place] [address] Dec, 2013 [facility] [place] [facility] [address] [id number] [place] [address] Dec, 2013 [facility] [place] [facility] [address] [facility] [id number] [place] [address] Dec, 2013 [facility] [place] [facility] [address] [id number] [place] [address] Dec, 2013 [facility] [place] [facility] [address] [id number] [place] [address] Dec, 2013 [facility] [place] [facility] [address] [id number] [place] [address] Dec, 2013 [facility] [place] [facility] [address] [facility] [id number] [place] [address] Dec, 2013 [facility] [place] [facility] [address] [facility] [id number] [place] [address] Dec, 2013 [facility] [place] [facility] [address] [facility] [id number] [place] [address] Dec, 2013 [facility] [place] [facility] [address] [id number] [place] [address] Nov, 2013 [facility] [place] [facility] [address] [facility] [id number] [facility] [place] [address] Nov, [facility] [place] [facility] [address] [facility] [id number] [facility] [place] [address] Nov, [facility] [place] [facility] [address] [facility] [id number] [place] [address] Nov, [facility] [place] [facility] [address] [id number] [place] [address] Nov, [facility] [place] [facility] [address] [facility] [id number] [facility] [place] [address] Nov, [facility] [place] [facility] [address] [facility] [id number] [facility] [place] [address] Nov, [facility] [place] [facility] [address] [id number] [place] [address] Nov, [facility] [place] [facility] [address] [id number] [place] [address] Nov, [facility] [place] [facility] [address] [id number] [place] [address] Nov, [facility] [place] [facility] [address] [facility] [id number] [facility] [place] [address] Nov, [facility] [place] [facility] [address] [id number] [place] [address] Nov, [facility] [place] [facility] [address] [id number] [place] [address] Nov, [facility] [place] [facility] [address] [id number] [place] [address] Nov, [facility] [place] [facility] [address] [facility] [id number] [place] [address] Nov, [facility] [place] [facility] [address] [id number] [place] [address] Nov, [facility] [place] [facility] [address] [facility] [id number] [place] [address] Nov, [facility] [place] [facility] [address] [id number] [place] [address] Nov, [facility] [place] [facility] [address] [id number] [place] [address] Nov, [facility] [place] [facility] [address] [id number] [place] [address] Nov, [facility] [place] [facility] [address] [id number] [place] [address] October, [facility] [place] [facility] [address] [id number] [place] [address] October, [facility] [place] [facility] [address] [id number] [place] [address] October, [facility] [place] [facility] [address] [id number] [place] [address] October, [facility] [place] [facility] [address] [id number] [place] [address] Sep, [facility] [place] [facility] [address] [id number] [place] [address] Sep, [facility] [place] [facility] [address] [id number] [place] [address] Sep, [facility] [place] [facility] [address] [id number] [place] [address] Sep, [facility] [place] [facility] [address] [id number] [place] [address] Sep, [facility] [place] [facility] [address] [id number] [place] [address] Sep, [facility] [place] [facility] [address] [id number] [place] [address] Sep, [facility] [place] [facility] [address] [id number] [place] [address] Sep, [facility] [place] [facility] [address] [id number] [place] [address] Sep, [facility] [place] [facility] [address] [id number] [place] [address] Aug, [facility] [place] [facility] [address] [id number] [place] [address] Aug, [facility] [place] [facility] [address] [facility] [id number] [place] [address] Aug, [facility] [place] [facility] [address] [facility] [id number] [facility] [place] [address] Aug, [facility] [place] [facility] [address] [facility] [id number] [place] [address] Aug, [facility] [place] [facility] [address] [id number] [place] [address] Aug, [facility] [place] [facility] [address] [facility] [id number] [facility] [place] [address] Aug, [facility] [place] [facility] [address] [id number] [place] [address] Aug, [facility] [place] [facility] [address] [id number] [place] [address] Jul, [facility] [place] [facility] [address] [id number] [place] [address] Jul, [facility] [place] [facility] [address] [id number] [place] [address] Jun, [facility] [place] [facility] [address] [id number] [place] [address] Jun, [facility] [place] [facility] [address] [id number] [place] [address] Jun, [facility] [place] [facility] [address] [id number] [place] [address] Jun, [facility] [place] [facility] [address] [facility] [id number] [place] [address] Jun, [facility] [place] [facility] [address] [facility] [id number] [place] [address] Jun, [facility] [place] [facility] [address] [id number] [place] [address] Jun, [facility] [place] [facility] [address] [id number] [place] [address] Jun, [facility] [place] [facility] [address] [id number] [facility] [place] [address] 15 Jun, 2013 [facility] [place] [facility] [address] [id number] [place] [address] 14 Jun, 2013 [facility] [place] [facility] [address] [id number] [place] [address] Jun, [facility] [place] [facility] [address] [id number] [place] [address] Jun, [facility] [place] [facility] [address] [id number] [place] [address] May, [facility] [place] [facility] [address] [id number] [place] [address] May, [facility] [place] [facility] [address] [id number] [place] [address] May, [facility] [place] [facility] [address] [id number] [place] [address] May, [facility] [place] [facility] [address] [id number] [place] [address] May, [facility] [place] [facility] [address] [id number] [place] [address] May, [facility] [place] [facility] [address] [id number] [place] [address] 26 May, 2013 [facility] [place] [facility] [address] [id number] [place] [address] May, [facility] [place] [facility] [address] [id number] [place] [address] 23 May, 2013 [facility] [place] [facility] [address] [id number] [place] [address] 16 May, 2013 [facility] [place] [facility] [address] [id number] [place] [address] 16 May, 2013 [facility] [place] [facility] [address] [id number] [place] [address] 16 May, 2013 [facility] [place] [facility] [address] [id number] [place] [address] 16 May, 2013 [facility] [place] [facility] [address] [id number] [place] [address] Apr, [facility] [place] [facility] [address] [id number] [place] [address] Apr, [facility] [place] [facility] [address] [id number] [place] [address] Mar, [facility] [place] [facility] [address] [id number] [place] [address] Mar, [facility] [place] [facility] [address] [id number] [place] [address] Feb, [facility] [place] [facility] [address] [id number] [place] [address] Feb, [facility] [place] [facility] [address] [id number] [place] [address] Feb, [facility] [place] [facility] [address] [id number] [place] [address] Feb, [facility] [place] [facility] [address] [id number] [place] [address] Jan, [facility] [place] [facility] [address] [id number] [place] [address] Jan, [facility] [place] [facility] [address] [id number] [place] [address] Jan, [facility] [place] [facility] [address] [id number] [place] [address] Jan, [facility] [place] [facility] [address] [id number] [place] [address] Jan, [facility] [place] [facility] [address] [id number] [place] [address] Jan, [facility] [place] [facility] [address] [id number] [place] [address] Dec, [facility] [place] [facility] [address] [id number] [place] [address] Dec, [facility] [place] [facility] [address] [id number] [place] [address] Dec, [facility] [place] [facility] [address] [id number] [place] [address] Dec, [facility] [place] [facility] [address] [id number] [place] [address] Nov, [facility] [place] [facility] [address] [id number] [place] [address] October, [facility] [place] [facility] [address] [id number] [place] [address] October, [facility] [place] [facility] [address] [id number] [place] [address] October, [facility] [place] [facility] [address] [id number] [place] [address] Sep, [facility] [place] [facility] [address] [id number] [place] [address] Sep, [facility] [place] [facility] [address] [id number] [place] [address] Jun, [facility] [place] [facility] [address] [id number] [place] [address] Jun, [facility] [place] [facility] [address] [id number] [place] [address] Jun, [facility] [place] [facility] [address] [id number] [place] [address] Apr, [facility] [place] [facility] [address] [id number] [place] [address] Apr, [facility] [place] [facility] [address] [id number] [place] [address] Apr, [facility] [place] [facility] [address] [id number] [place] [address] Apr, [facility] [place] [facility] [address] [id number] [place] [address] Mar, [facility] [place] [facility] [address] [id number] [place] [address] Mar, [facility] [place] [facility] [address] [id number] [place] [address] Mar, [facility] [place] [facility] [address] [id number] [place] [address] Mar, [facility] [place] [facility] [address] [id number] [place] [address] Feb, [facility] [place] [facility] [address] [id number] [place] [address] Feb, [facility] [place] [facility] [address] [id number] [place] [address] Feb, [facility] [place] [facility] [address] [id number] [place] [address] Jan, [facility] [place] [facility] [address] [id number] [place] [address] Jan, [facility] [place] [facility] [address] [id number] [place] [address] Jan, [facility] [address] [id number] [place] [address] Jan, [facility] [address] [id number] [place] [address] Dec, [facility] [address] [id number] [place] [address] Dec, [facility] [address] [id number] [place] [address] Nov, [facility] [address] [id number] [place] [address] Nov, [facility] [address] [id number] [place] [address] October, [facility] [id number] [place] [address] October, [facility] [address] [id number] [place] [address] October, [facility] [address] [id number] [place] [address] Sep, [facility] [address] [id number] [place] [address] Sep, [facility] [address] [id number] [place] [address] Sep, [facility] [address] [id number] [place] [address] Aug, [facility] [address] [id number] [place] [address] Aug, [facility] [address] [id number] [place] [address] Aug, [facility] [address] [id number] [place] [address] 15 Aug, 2011 [facility] [address] [id number] [place] [address] Aug, [facility] [address] [id number] [place] [address] Jul, [facility] [address] [id number] [place] [address] 16 Jul, 2011 [facility] [address] [id number] [place] [address] Jul, [facility] [address] [id number] [place] [address] Jul, [facility] [address] [id number] [place] [address] Jul, [facility] [address] [id number] [place] [address] 06 Jul, 2011 [facility] [address] [id number] [place] [address] Jul, [facility] [address] [id number] [place] [address] Jul, [facility] [address] [id number] [place] [address] Jun, [facility] [address] [id number] [place] [address] Jun, [facility] [address] [id number] [place] [address] May, [facility] [address] [id number] [place] [address] May, [facility] [address] [id number] [place] [address] May, [facility] [address] [id number] [place] [address] May, [facility] [address] [id number] [place] [address] Apr, [facility] [address] [id number] [place] [address] Apr, [facility] [address] [id number] [place] [address] Apr, [facility] [address] [id number] [place] [address] Mar, [facility] [address] [id number] [place] [address] Mar, [facility] [address] [id number] [place] [address] Mar, [facility] [address] [id number] [place] [address] Mar, [facility] [id number] [place] [address] Dec, [facility] [address] [id number] [place] [address] October, [facility] [address] [id number] [place] [address] May, [facility] [address] [id number] [place] [address] May, [facility] [address] [id number] [place] [address] May, [facility] [address] [id number] [place] [address] May, [facility] [address] [id number] [place] [address] Mar, [facility] [address] [id number] [place] [address] Mar, [facility] [id number] [place] [address] May, [facility] [id number] [place] [address] May, [facility] [address] [address] May, [facility] [id number] [place] [address] May, [facility] [id number] [place] [address] Apr, [facility] [id number] [place] [address] Apr, [facility] [address] [id number] [place] [address] October, IMMUNIZATIONS No Known Immunizations SOCIAL HISTORY [...]
--- OUTSIDE RECORDS SUMMARY | 2020-01-13 12:16 | XMS REPORT ---
Author Author Monique RAHMAN Organization [facility] Address [address] [place] [address] Care Team Providers Care Payroll Technician Name Role Phone RASHEED RAHMAN Unavailable PROBLEMS Type Condition ICD9-CM Code [id number] Code Onset Dates Condition S tatus SNOMED Code Problem Panic disorder without agoraphobia F41.0 Active 14930632 Problem Agoraphobia F40.00 Active 61199346 Problem Fatigue R53.83 Active 76338257 Problem Varicose veins of both lower extremities I83.93 Active 27002159 Problem Mild chronic obstructive pulmonary disease J44.9 Active 468672082 Problem Mild persistent asthma without complication J45.30 Active 921721596 Problem Essential hypertension I10 Active 49453170 Problem Snoring R06.83 Active 01887764 Problem On home oxygen therapy Z99.81 Active 558024221124 Problem MRSA (methicillin resistant staph aureus) culture positive Z22.322 Active 830235559 Problem Major depressive disorder, recurrent episode, moderate F33.1 Active 562445145 Problem 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 Active 970869892 Problem Arthritis M19.90 Active 4207425 Problem Major depressive disorder in full remission F32.5 Active 16983200 Problem Social phobia F40.10 Active 687741 02 Problem Impaired circulation I99.9 Active 98422403 Problem Slow transit constipation K59.01 Acti ve 27047407 Problem Neuropathy G62.9 Active 367039076 Problem History of illicit drug use Z87.898 Ac tive 527079674 Problem Dysthymic disorder F34.1 Active 7 9477033 Problem Mood disorder F39 Active 782886 05 Problem Psychotic disorder F29 Active 6 8206832 Problem Hypertension, benign I10 Active 11901672 Problem Onychomycosis B35.1 Active 883104 008 ALLERGIES No Information ENCOUNTERS Encounter Location Date Diagnosis [facility] [address] [address] Aug, [place] [address] [address] Jul, [place] [address] [address] Jul, [place] [address] [address] May, Morbid obesity E66.01 [place] [address] [address] May, Encounter for immunization Z23 [place] [address] [address] May, Major depressive disorder, recurrent epi sode, moderate F33.1 ; Panic disorder without agoraphobia F41.0 and Morbid obesity E66.01 [place] [address] [address] May, Major depressive disorder in full remiss ion F32.5 and Panic disorder without agoraphobia F41.0 [place] [address] [address] Apr, Morbid obesity E66.01 [place] [address] [address] Apr, Slow transit constipation K59.01 and Lois lulitis of left lower extremity L03.116 [place] [address] [address] Apr, Morbid obesity E66.01 [place] [address] [address] Apr, [place] [address] [address] Apr, Major depressive disorder, recurrent epi sode, moderate F33.1 and Panic disorder without agoraphobia F41.0 [place] [address] [address] Mar, Viral upper respiratory tract infection J06.9 [place] [address] [address] 10 Mar, 2019 Bronchitis J40 and Encounter for immuniz ation Z23 [place] [address] [address] Mar, Morbid obesity E66.01 [place] [address] [address] Feb, Major depressive disorder, recurrent epi sode, moderate F33.1 and Panic disorder without agoraphobia F41.0 [place] [address] [address] Feb, Morbid obesity E66.01 [place] [address] [address] 06 Feb, 2019 Onychomycosis B35.1 ; Type 2 diabetes me llitus with diabetic neuropathic arthropathy E11.610 and Xerosis of skin L85.3 [place] [address] [address] 04 Feb, 2019 Major depressive disorder, recurrent epi sode, moderate F33.1 ; Panic disorder without agoraphobia F41.0 and Morbid obesity E66.01 [place] [address] [address] Jan, Major depressive disorder in full remiss ion F32.5 and Panic disorder without agoraphobia F41.0 [place] [address] [address] Jan, Pneumonia of both lower lobes due to inf ectious organism J18.1 and Morbid obesity E66.01 [place] [address] [address] Jan, [address] [address] Jan, Major depressive disorder in full remiss ion F32.5 and Panic disorder without agoraphobia F41.0 [place] [address] [address] Jan, [place] [address] [address] Jan, Major depressive disorder, recurrent epi sode, moderate F33.1 ; Panic disorder without agoraphobia F41.0 and Morbid obesity E66.01 [place] [address] [address] Dec, Bilious vomiting with nausea R11.14 ; Co ughing R05 and Choking, subsequent encounter T17.308D [place] [address] [address] Dec, Morbid obesity E66.01 [place] [address] [address] Dec, Major depressive disorder, recurrent epi sode, moderate F33.1 and Panic disorder without agoraphobia F41.0 [place] [address] [address] Dec, [place] [address] [address] Dec, Major depressive disorder, recurrent epi sode, moderate F33.1 [place] [address] [address] Nov, Major depressive disorder, recurrent epi sode, moderate F33.1 ; Panic disorder without agoraphobia F41.0 and Morbid obesity E66.01 [place] [address] [address] Nov, Morbid obesity E66.01 [place] [address] [address] Nov, Major depressive disorder, recurrent epi sode, moderate F33.1 and Panic disorder without agoraphobia F41.0 [facility] [address] [facility] [id number] [address] [place] [address] Nov, Allergic reaction, initial e ncounter T78.40XA and Morbid obesity E66.[address] [address] Nov, [place] [address] [address] Nov, Morbid obesity E66.01 ; Swallowing probl em R13.10 and Hypertension, benign I10 [facility] [place] [id number] [place] [address] 07 Nov, 2018 Morbid obesity E66.01 ; COPD exacerbation J44.1 and Non- recurrent acute suppurative otitis media of left ear without spontaneous rupture of tympanic membrane H66.[address] [address] Nov, Onychomycosis B35.1 ; Neuropathy G62.9 a nd Fissure in skin of foot R23.[address] [address] October, Major depressive disorder, recurrent epi sode, moderate F33.1 ; Panic disorder without agoraphobia F41.0 and Morbid obesity E66.01 [facility] [place] [id number] [address] [place] [address] October, Viral upper respiratory trac t infection J06.9 [place] [address] [address] October, [address] [address] October, Major depressive disorder, recurrent epi sode, moderate F33.1 and Panic disorder without agoraphobia F41.0 [place] [address] [address] October, [place] [address] [address] October, [place] [id number] [place] [address] October, [facility] [address] [address] October, [facility] [address] [address] October, [facility] [address] [address] October, [facility] [address] [address] October, Major depressive disorder, recurrent epi sode, moderate F33.1 and Panic disorder without agoraphobia F41.0 [place] [address] [address] Sep, Morbid obesity E66.01 and Lumbar neuriti s M54.16 [place] [address] [address] Sep, Panic disorder without agoraphobia F41.0 and Major depressive disorder, recurrent episode, moderate F33.1 [facility] [address] [facility] [id number] [address] [place] [address] Sep, Gastroenteritis K52.9 ; Low back pain M54.5 ; Other chronic pain G89.29 and Morbid obesity E66.01 [facility] [address] [address] Sep, Major depressive disorder, recurrent epi sode, moderate F33.1 ; Panic disorder without agoraphobia F41.0 and Social phobia F40.10 [facility] [address] [address] Sep, Panic disorder without agoraphobia F41.0 [facility] [address] [address] Sep, Panic disorder without agoraphobia F41.0 [facility] [address] [address] Aug, Panic disorder without agoraphobia F41.0 ; Major depressive disorder, recurrent episode, moderate F33.1 ; Social phobia F40.10 ; Psychotic disorder F29 ; Tardive dyskinesia G24.01 and Morbid obesity E66.01 [place] [address] [address] Aug, Dysthymic disorder F34.1 and Psychotic d isorder F29 [place] [address] [address] Aug, Encounter for Medicare annual wellness e xam Z00.00 ; Morbid obesity E66.01 and 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.610 [place] [address] [address] Aug, Dysthymic disorder F34.1 and Psychotic d isorder F29 [place] [address] [address] Aug, Neuropathy G62.9 ; Onychomycosis B35.1 a nd Xerosis of skin L85.3 [place] [address] [address] Jul, [address] [address] Jul, Mood disorder F39 ; Wheezing R06.2 ; Diego sanchez, initial encounter T17.308A and Coughing R05 [place] [address] [address] Jul, Low back pain M54.5 [facility] [address] [facility] [id number] [address] [place] [address] Jun, Flu-like symptoms R68.89 ; B NH 45.0-49.9, adult Z68.42 ; COPD exacerbation J44.1 and Acute bronchitis J20.9 [place] [address] [address] Jun, [place] [address] [address] May, [place] [address] [address] May, Onychomycosis B35.1 and Type 2 diabetes mellitus with diabetic neuropathic arthropathy E11.610 [place] [address] [address] May, Low back pain M54.5 and Edema leg R60.0 [place] [address] [address] May, BMI 45.0-49.9, adult Z68.42 ; Well woman exam with routine gynecological exam Z01.419 and Breast cancer screening Z12.31 [place] [address] [address] 19 Apr, 2018 Arthritis M19.90 [place] [address] [address] 16 Apr, 2018 Arthritis M19.90 and Otalgia of both ear s H92.03 [place] [address] [address] Feb, [place] [address] [address] Feb, Low back pain M54.5 ; Other chronic pain G89.29 ; Exertional asthma J45.990 and Encounter for immunization Z23 [place] [address] [address] Feb, Skin fissures R23.4 ; Neuropathy G62.9 a nd Onychomycosis B35.1 [place] [address] [address] 05 Feb, 2018 Dysthymic disorder F34.1 [place] [address] [address] Feb, [place] [address] [address] Jan, [facility] [address] [address] Jan, Abrasion of right elbow, initial encount er S50.311A ; Abrasion, right knee, initial encounter S80.211A and Sprain of other ligament of right ankle, initial encounter S93.491A [facility] [address] [address] Jan, [facility] [address] [facility] [id number] [address] [place] [address] Jan, Injury of left ankle, initia l encounter S99.912A ; Fall down stairs, initial encounter W10.8XXA and BMI 45.0-49.9, adult Z68.42 [place] [address] [address] Jan, COPD exacerbation J44.1 [place] [address] [address] Jan, Dysfunction of both eustachian tubes H69 .83 [place] [address] [address] 08 Jan, 2018 Bronchitis J40 and Acute suppurative giovana tis media of left ear without spontaneous rupture of tympanic membrane, recurrence not specified H66.002 [facility] [address] [address] Jan, [place] [address] [address] Jan, Bronchitis J40 and BMI 40.0-44.9, adult Z68.41 [place] [address] [address] Jan, [place] [address] [address] Dec, Gastric pain R10.9 [place] [address] [address] Dec, [place] [address] [address] Dec, History of illicit drug use Z87.898 ; Ne uropathy G62.9 ; COPD (chronic obstructive pulmonary disease) with chronic bronchitis J44.9 and Acute pain of right knee M25.561 [place] [address] [address] Nov, [place] [address] [address] Nov, Onychomycosis B35.1 and Contusion of lef t foot, subsequent encounter S90.32XD [address] [address] Nov, COPD exacerbation J44.1 [place] [address] [address] Sep, [place] [address] [address] Sep, Dysthymic disorder F34.1 ; Tobacco abuse Z72.0 ; Pain in right knee M25.561 ; Pain in left knee M25.562 ; Other chronic pain G89.29 and BMI 40.0- 44.9, adult Z68.[address] [address] Aug, Major depressive disorder, recurrent epi sode, moderate F33.1 and Social phobia F40.[address] [address] Aug, Dysthymic disorder F34.1 ; Non-pressure chronic ulcer of left thigh, unspecified ulcer stage L97.129 ; Tobacco abuse Z72.0 ; Mild chronic obstructive pulmonary disease J44.9 and Forgetfulness R68.89 [place] [address] [address] 09 Aug, 2017 Onychomycosis B35.1 ; Fissure in skin of foot R23.4 and Foot callus L84 [facility] [address] [facility] [id number] [address] [address] Jul, Right medial knee pain M25.5 61 ; Upper respiratory tract infection, unspecified type J06.9 and BMI 40.0-44.9, adult Z68.41 [facility] [address] [facility] [id number] [place] [address] 08 Jul, 2017 Nausea and vomiting, intract ability of vomiting not specified, unspecified vomiting type R11.2 ; Left ear pain H92.02 and Gastric pain R10.9 [place] [address] [address] Apr, Encounter for immunization Z23 [place] [address] [address] Apr, Onychomycosis B35.1 ; Xerosis of skin L8 5.3 ; Neuropathy G62.9 and 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 [place] [address] [address] Jan, Onychomycosis B35.1 and Neuropathy G62.9 [place] [address] [address] Dec, [place] [address] [address] Dec, [place] [address] [address] Nov, [place] [address] [address] Aug, [place] [address] [address] Aug, [place] [address] [address] Jul, [place] [address] [address] Jul, [place] [address] [address] 17 Jul, 2016 Decubitus ulcer of left thigh, stage 2 L 89.892 [facility] [address] [address] 17 Jul, 2016 Decubitus ulcer of left thigh, stage 2 L 89.892 [facility] [address] [address] 17 Jul, 2016 [facility] [address] [address] 15 Jul, 2016 Decubitus ulcer of left thigh, stage 2 L 89.892 [facility] [address] [address] 14 Jul, 2016 [facility] [address] [address] 13 Jul, 2016 Cellulitis of other specified site L03.8 18 ; Illicit drug use F19.90 and Decubitus ulcer of left thigh, stage 2 L89.892 [facility] [address] [address] 08 Jul, 2016 [place] [address] [address] 06 Jul, 2016 Cellulitis of right breast N61.0 [facility] [address] [address] Jun, [facility] [address] [address] Jun, [facility] [address] [address] Jun, Wheezing R06.2 and Arthralgia, unspecifi ed joint M25.50 [facility] [address] [address] May, [facility] [address] [address] May, [facility] [address] [address] May, [facility] [address] [address] 05 May, 2016 Shortness of breath R06.02 [facility] [address] [address] 02 May, 2016 Onychomycosis B35.1 and Fissure in skin of foot R23.4 [facility] [address] [address] 28 Apr, 2016 [facility] [address] [facility] [id number] [address] [place] [address] 18 Apr, 2016 Dizziness R42 [place] [address] [address] 14 Apr, 2016 Shortness of breath R06.02 ; Essential h ypertension I10 ; Dizziness R42 and On home oxygen therapy Z99.81 [facility] [address] [address] Apr, [place] [address] [address] 08 Apr, 2016 [facility] [address] [address] 07 Apr, 2016 [place] [address] [address] Apr, [facility] [address] [address] Apr, [facility] [address] [address] Apr, [facility] [address] [address] Apr, [facility] [address] [address] Mar, Mild chronic obstructive pulmonary disea se J44.9 [facility] [address] [address] Mar, [place] [address] [address] Mar, Epigastric pain R10.13 ; Low back pain M 54.5 ; Other chronic pain G89.29 and Breast cancer screening Z12.39 [place] [address] [address] Mar, [facility] [address] [address] Mar, [place] [address] [address] Feb, [place] [address] [address] Feb, [place] [address] [address] Feb, Fissure in skin of foot R23.4 and Onycho mycosis B35.1 [place] [address] [address] Jan, Agoraphobia F40.00 [place] [address] [address] Dec, Agoraphobia F40.00 [place] [address] [address] Dec, Mild persistent asthma without complicat ion J45.30 ; Dysthymic disorder F34.1 and Upper respiratory tract infection, unspecified type J06.9 [place] [address] [address] Nov, Agoraphobia F40.00 [place] [address] [address] October, Agoraphobia F40.00 [place] [address] [address] Sep, Panic disorder without agoraphobia F41.0 ; Agoraphobia F40.00 and Dysthymic disorder F34.1 [place] [address] [address] Sep, Panic attacks F41.0 [place] [address] [address] Sep, [place] [address] [address] Sep, Panic disorder without agoraphobia F41.0 ; Varicose veins of both lower extremities I83.93 and Fatigue R53.83 [place] [address] [address] Sep, Fatigue R53.83 [place] [address] [address] Sep, [place] [address] [address] Aug, [place] [address] [address] Aug, [place] [address] [address] Aug, Type 2 diabetes mellitus with diabetic n europathic arthropathy E11.610 [place] [address] [address] Aug, Panic disorder without agoraphobia F41.0 ; Agoraphobia F40.00 and Dysthymic disorder F34.1 [place] [address] [address] Aug, Shortness of breath R06.02 ; Panic attac ks F41.0 ; COPD (chronic obstructive pulmonary disease) J44.9 ; Tobacco abuse Z72.0 ; Family history of diabetes mellitus Z83.3 and Weight gain R63.5 [place] [address] [address] Aug, [place] [address] [address] Jul, [facility] [address] [address] Jun, Onychomycosis B35.1 ; Neuropathy G62.9 a nd Impaired circulation I99.9 [facility] [address] [address] Mar, Fissure in skin of foot R23.4 ; Onychomy cosis B35.1 and 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 [place] [address] [address] 18 Feb, 2015 Family history of coronary arteriosclero sis V17.3 [place] [address] [address] 15 Feb, 2015 Allergic rhinitis due to pollen 477.0 ; Unspecified breast screening V76.10 ; Anxiety 300.00 and Family history of coronary arteriosclerosis V17.3 [facility] [address] [address] Jan, [facility] [address] [address] Dec, [place] [address] [address] Dec, Onychomycosis 110.1 and Skin fissures 70 9.8 [facility] [address] [address] Sep, [facility] [address] [address] Sep, [facility] [address] [address] Aug, [facility] [address] [address] Aug, [facility] [address] [address] Jul, [facility] [address] [id number] [place] [address] Jul, [facility] [address] [id number] [place] [address] Jun, [facility] [address] [id number] [place] [address] Jun, [facility] [address] [id number] [place] [address] Jun, [facility] [address] [id number] [place] [address] Jun, [facility] [address] [id number] [place] [address] Jun, [facility] [address] [id number] [place] [address] May, [facility] [address] [id number] [place] [address] May, [facility] [address] [id number] [place] [address] May, [facility] [address] [id number] [place] [address] May, [facility] [address] [id number] [place] [address] May, [facility] [address] [id number] [place] [address] May, [facility] [address] [id number] [place] [address] May, [facility] [address] [id number] [place] [address] May, [facility] [address] [id number] [place] [address] Apr, [facility] [address] [id number] [place] [address] Apr, [facility] [address] [id number] [place] [address] Apr, [facility] [address] [id number] [place] [address] Apr, [facility] [address] [id number] [place] [address] Apr, [facility] [address] [id number] [place] [address] Apr, [facility] [address] [id number] [place] [address] Apr, [facility] [address] [id number] [place] [address] Apr, [facility] [address] [id number] [place] [address] Apr, [facility] [address] [id number] [place] [address] Apr, [facility] [address] [id number] [place] [address] Mar, [facility] [address] [id number] [place] [address] Mar, [facility] [address] [id number] [place] [address] Mar, [facility] [address] [id number] [place] [address] Mar, [facility] [address] [id number] [place] [address] Mar, [facility] [address] [id number] [place] [address] Mar, [facility] [id number] [place] [address] Mar, [facility] [address] [id number] [place] [address] Mar, [facility] [address] [id number] [place] [address] Mar, [facility] [address] [facility] [id number] [place] [address] 23 Mar, 2013 [facility] [address] [facility] [id number] [place] [address] 23 Mar, 2013 [facility] [place] [facility] [address] [facility] [facility] [id number] [place] [address] Mar, 2013 [facility] [place] [facility] [address] [id number] [place] [address] 22 Mar, 2014 [facility] [place] [facility] [address] [facility] [id number] [place] [address] Mar, 2013 [facility] [place] [facility] [address] [facility] [facility] [id number] [place] [address] 22 Mar, 2013 [facility] [place] [facility] [address] [id number] [place] [address] 20 Mar, 2013 [facility] [place] [facility] [address] [id number] [place] [address] 20 Mar, 2013 [facility] [place] [facility] [address] [id number] [place] [address] 16 Mar, 2013 [facility] [place] [facility] [address] [id number] [place] [address] 16 Mar, 2013 [facility] [place] [facility] [address] [id number] [place] [address] 15 Mar, 2013 [facility] [place] [facility] [address] [id number] [place] [address] 14 Mar, 2013 [facility] [place] [facility] [address] [id number] [place] [address] 14 Mar, 2013 [facility] [place] [facility] [address] [facility] [id number] [place] [address] 14 Mar, 2013 [facility] [place] [facility] [address] [id number] [place] [address] 14 Mar, 2013 [facility] [place] [facility] [address] [id number] [place] [address] 09 Mar, 2013 [facility] [place] [facility] [address] [id number] [place] [address] Mar, 2013 [facility] [place] [facility] [address] [facility] [id number] [place] [address] Mar, 2013 [facility] [place] [facility] [address] [facility] [id number] [place] [address] Mar, 2013 [facility] [place] [facility] [address] [id number] [place] [address] Feb, 2013 [facility] [place] [facility] [address] [id number] [place] [address] Feb, 2013 [facility] [place] [facility] [address] [id number] [place] [address] Feb, 2013 [facility] [place] [facility] [address] [id number] [place] [address] Feb, 2013 [facility] [place] [facility] [address] [id number] [place] [address] Feb, 2013 [facility] [place] [facility] [address] [id number] [place] [address] Feb, 2013 [facility] [place] [facility] [address] [id number] [place] [address] Feb, 2013 [facility] [place] [facility] [address] [id number] [place] [address] Feb, 2013 [facility] [place] [facility] [address] [id number] [place] [address] Feb, 2013 [facility] [place] [facility] [address] [id number] [place] [address] Feb, 2013 [facility] [place] [facility] [address] [id number] [place] [address] Feb, 2013 [facility] [place] [facility] [address] [id number] [place] [address] Feb, 2013 [facility] [place] [facility] [address] [id number] [place] [address] Jan, [facility] [place] [facility] [address] [id number] [place] [address] Jan, [facility] [place] [facility] [address] [id number] [place] [address] Jan, [facility] [place] [facility] [address] [id number] [facility] [place] [address] Jan, [facility] [place] [facility] [address] [facility] [id number] [place] [address] Jan, [facility] [place] [facility] [address] [id number] [place] [address] Jan, [facility] [place] [facility] [address] [id number] [place] [address] Jan, [facility] [place] [facility] [address] [id number] [place] [address] Jan, [facility] [place] [facility] [address] [id number] [place] [address] Jan, [facility] [place] [facility] [address] [id number] [place] [address] Jan, [facility] [place] [facility] [address] [id number] [place] [address] Jan, [facility] [place] [facility] [address] [id number] [place] [address] Jan, [facility] [place] [facility] [address] [id number] [place] [address] Jan, [facility] [place] [facility] [address] [id number] [place] [address] Dec, [facility] [place] [facility] [address] [id number] [place] [address] Dec, [facility] [place] [facility] [address] [id number] [place] [address] Dec, [facility] [place] [facility] [address] [id number] [place] [address] Dec, [facility] [place] [facility] [address] [id number] [place] [address] Dec, [facility] [place] [facility] [address] [id number] [place] [address] Dec, [facility] [place] [facility] [address] [id number] [place] [address] Dec, 2013 [facility] [place] [facility] [address] [facility] [facility] [id number] [place] [address] Dec, 2013 [facility] [place] [facility] [address] [facility] [facility] [id number] [place] [address] Dec, 2013 [facility] [place] [facility] [address] [id number] [place] [address] Dec, 2013 [facility] [place] [facility] [address] [facility] [id number] [place] [address] Dec, 2013 [facility] [place] [facility] [address] [facility] [facility] [id number] [place] [address] Dec, 2013 [facility] [place] [facility] [address] [id number] [place] [address] Dec, 2013 [facility] [place] [facility] [address] [id number] [place] [address] Dec, 2013 [facility] [place] [facility] [address] [id number] [place] [address] Dec, 2013 [facility] [place] [facility] [address] [id number] [place] [address] Dec, 2013 [facility] [place] [facility] [address] [id number] [place] [address] Dec, [facility] [place] [facility] [address] [id number] [place] [address] Dec, 2013 [facility] [place] [facility] [address] [id number] [place] [address] Nov, [facility] [place] [facility] [address] [facility] [id number] [place] [address] Nov, [facility] [place] [facility] [address] [id number] [place] [address] Nov, [facility] [place] [facility] [address] [id number] [place] [address] Nov, [facility] [place] [facility] [address] [id number] [place] [address] Nov, [facility] [place] [facility] [address] [facility] [id number] [place] [address] Nov, [facility] [place] [facility] [address] [id number] [facility] [place] [address] Nov, [facility] [place] [facility] [address] [id number] [place] [address] Nov, [facility] [place] [facility] [address] [id number] [facility] [place] [address] Nov, [facility] [place] [facility] [address] [id number] [facility] [place] [address] Nov, [facility] [place] [facility] [address] [id number] [place] [address] Nov, [facility] [place] [facility] [address] [id number] [place] [address] Nov, [facility] [place] [facility] [address] [id number] [place] [address] Nov, [facility] [place] [facility] [address] [facility] [id number] [place] [address] Nov, [facility] [place] [facility] [address] [id number] [place] [address] Nov, [facility] [place] [facility] [address] [id number] [place] [address] Nov, [facility] [place] [facility] [address] [id number] [place] [address] Nov, [facility] [place] [facility] [address] [facility] [id number] [place] [address] Nov, [facility] [place] [facility] [address] [facility] [id number] [place] [address] Nov, [facility] [place] [facility] [address] [facility] [id number] [place] [address] Nov, [facility] [place] [facility] [address] [id number] [place] [address] October, [facility] [place] [facility] [address] [id number] [place] [address] October, [facility] [place] [facility] [address] [id number] [place] [address] October, [facility] [place] [facility] [address] [id number] [place] [address] October, [facility] [place] [facility] [address] [id number] [place] [address] Sep, [facility] [place] [facility] [address] [id number] [place] [address] Sep, [facility] [place] [facility] [address] [id number] [place] [address] Sep, [facility] [place] [facility] [address] [id number] [place] [address] Sep, [facility] [place] [facility] [address] [id number] [place] [address] Sep, [facility] [place] [facility] [address] [id number] [place] [address] Sep, [facility] [place] [facility] [address] [id number] [place] [address] Sep, [facility] [place] [facility] [address] [id number] [place] [address] Sep, [facility] [place] [facility] [address] [id number] [place] [address] Sep, [facility] [place] [facility] [address] [id number] [place] [address] Aug, [facility] [place] [facility] [address] [id number] [place] [address] Aug, [facility] [place] [facility] [address] [id number] [place] [address] Aug, [facility] [place] [facility] [address] [id number] [place] [address] Aug, [facility] [place] [facility] [address] [id number] [place] [address] Aug, [facility] [place] [facility] [address] [id number] [place] [address] Aug, [facility] [place] [facility] [address] [id number] [place] [address] Aug, [facility] [place] [facility] [address] [id number] [place] [address] Aug, [facility] [place] [facility] [address] [id number] [place] [address] Jul, [facility] [place] [facility] [address] [id number] [place] [address] Jul, [facility] [place] [facility] [address] [id number] [place] [address] Jun, [facility] [place] [facility] [address] [id number] [place] [address] Jun, [facility] [place] [facility] [address] [id number] [place] [address] Jun, [facility] [place] [facility] [address] [id number] [place] [address] Jun, [facility] [place] [facility] [address] [id number] [place] [address] Jun, [facility] [place] [facility] [address] [id number] [place] [address] Jun, [facility] [place] [facility] [address] [id number] [place] [address] Jun, [facility] [place] [facility] [address] [id number] [place] [address] Jun, [facility] [place] [facility] [address] [id number] [place] [address] Jun, [facility] [place] [facility] [address] [id number] [place] [address] Jun, [facility] [place] [facility] [address] [id number] [place] [address] Jun, [facility] [place] [facility] [address] [id number] [place] [address] Jun, [facility] [place] [facility] [address] [id number] [place] [address] May, [facility] [place] [facility] [address] [id number] [place] [address] May, [facility] [place] [facility] [address] [id number] [place] [address] May, [facility] [place] [facility] [address] [id number] [place] [address] May, [facility] [place] [facility] [address] [id number] [place] [address] May, [facility] [place] [facility] [address] [id number] [place] [address] May, [facility] [place] [facility] [address] [id number] [place] [address] May, [facility] [place] [facility] [address] [id number] [place] [address] May, [facility] [place] [facility] [address] [id number] [place] [address] May, [facility] [place] [facility] [address] [id number] [place] [address] May, [facility] [place] [facility] [address] [id number] [place] [address] May, [facility] [place] [facility] [address] [id number] [place] [address] May, [facility] [place] [facility] [address] [id number] [place] [address] May, [facility] [place] [facility] [address] [id number] [place] [address] Apr, [facility] [place] [facility] [address] [id number] [place] [address] Apr, [facility] [place] [facility] [address] [id number] [place] [address] Mar, [facility] [place] [facility] [address] [id number] [place] [address] Mar, [facility] [place] [facility] [address] [id number] [place] [address] Feb, [facility] [place] [facility] [address] [id number] [place] [address] Feb, [facility] [place] [facility] [address] [id number] [place] [address] Feb, [facility] [place] [facility] [address] [id number] [place] [address] Feb, [facility] [place] [facility] [address] [id number] [place] [address] Jan, [facility] [place] [facility] [address] [id number] [place] [address] Jan, [facility] [place] [facility] [address] [id number] [place] [address] Jan, [facility] [place] [facility] [address] [id number] [place] [address] Jan, [facility] [place] [facility] [address] [id number] [place] [address] Jan, [facility] [place] [facility] [address] [id number] [place] [address] Jan, [facility] [place] [facility] [address] [id number] [place] [address] Dec, [facility] [place] [facility] [address] [id number] [place] [address] Dec, [facility] [place] [facility] [address] [id number] [place] [address] Dec, [facility] [place] [facility] [address] [id number] [place] [address] Dec, [facility] [place] [facility] [address] [id number] [place] [address] Nov, [facility] [place] [facility] [address] [id number] [place] [address] October, [facility] [place] [facility] [address] [id number] [place] [address] October, [facility] [place] [facility] [address] [id number] [place] [address] October, [facility] [place] [facility] [address] [id number] [place] [address] Sep, [facility] [place] [facility] [address] [id number] [place] [address] Sep, [facility] [place] [facility] [address] [id number] [place] [address] Jun, [facility] [place] [facility] [address] [id number] [place] [address] Jun, [facility] [place] [facility] [address] [id number] [place] [address] Jun, [facility] [place] [facility] [address] [id number] [place] [address] Apr, [facility] [place] [facility] [address] [id number] [place] [address] Apr, [facility] [place] [facility] [address] [id number] [place] [address] Apr, [facility] [place] [facility] [address] [id number] [place] [address] Apr, [facility] [place] [facility] [address] [id number] [place] [address] Mar, [facility] [place] [facility] [address] [id number] [place] [address] Mar, [facility] [place] [facility] [address] [id number] [place] [address] Mar, [facility] [place] [facility] [address] [id number] [place] [address] Mar, [facility] [place] [facility] [address] [id number] [place] [address] Feb, [facility] [place] [facility] [address] [id number] [place] [address] 27 Feb, 2012 [facility] [place] [facility] [address] [id number] [place] [address] Feb, [facility] [place] [facility] [address] [id number] [place] [address] Jan, [facility] [place] [facility] [address] [id number] [place] [address] Jan, [facility] [place] [facility] [address] [id number] [place] [address] Jan, [facility] [place] [facility] [address] [id number] [place] [address] Jan, [facility] [place] [facility] [address] [id number] [place] [address] Dec, [facility] [place] [facility] [address] [id number] [place] [address] Dec, [facility] [place] [facility] [address] [id number] [place] [address] Nov, [facility] [place] [facility] [address] [id number] [place] [address] Nov, [facility] [place] [facility] [address] [id number] [place] [address] October, [facility] [place] [facility] [address] [id number] [place] [address] October, [facility] [place] [facility] [address] [id number] [place] [address] October, [facility] [place] [facility] [address] [id number] [place] [address] Sep, [facility] [place] [facility] [address] [id number] [place] [address] Sep, [facility] [place] [facility] [address] [id number] [place] [address] Sep, [facility] [place] [facility] [address] [id number] [place] [address] Aug, [facility] [place] [facility] [address] [id number] [place] [address] 26 Aug, 2011 [facility] [place] [facility] [address] [id number] [place] [address] 15 Aug, 2011 [facility] [place] [facility] [address] [id number] [place] [address] 15 Aug, 2011 [facility] [place] [facility] [address] [id number] [place] [address] Aug, [facility] [place] [facility] [address] [id number] [place] [address] 23 Jul, 2011 [facility] [place] [facility] [address] [id number] [place] [address] 16 Jul, 2011 [facility] [place] [facility] [address] [id number] [place] [address] 13 Jul, 2011 [facility] [place] [facility] [address] [id number] [place] [address] Jul, [facility] [place] [facility] [address] [id number] [place] [address] Jul, [facility] [place] [facility] [address] [id number] [place] [address] Jul, [facility] [place] [address] [id number] [place] [address] Jul, [facility] [address] [id number] [place] [address] Jul, [facility] [address] [id number] [place] [address] Jun, [facility] [address] [id number] [place] [address] Jun, [facility] [address] [id number] [place] [address] May, [facility] [address] [id number] [place] [address] May, [facility] [address] [id number] [place] [address] 08 May, 2011 [facility] [address] [id number] [place] [address] 08 May, 2011 [facility] [address] [id number] [place] [address] Apr, [facility] [address] [id number] [place] [address] Apr, [facility] [address] [id number] [place] [address] Apr, [facility] [address] [id number] [place] [address] Mar, [facility] [address] [id number] [place] [address] Mar, [facility] [address] [id number] [place] [address] Mar, [facility] [address] [id number] [place] [address] Mar, [facility] [address] [id number] [place] [address] Dec, [facility] [address] [id number] [place] [address] October, [facility] [address] [id number] [place] [address] May, [facility] [address] [id number] [place] [address] May, [facility] [address] [id number] [place] [address] May, [facility] [address] [id number] [place] [address] May, [facility] [address] [id number] [place] [address] Mar, [facility] [address] [id number] [place] [address] Mar, [facility] [address] [id number] [place] [address] May, [facility] [address] [id number] [place] [address] May, [facility] [address] [id number] [place] [address] May, [facility] [address] [id number] [place] [address] May, [facility] [address] [id number] [place] [address] Apr, [facility] [address] [id number] [place] [address] Apr, [facility] [address] [id number] [place] [address] October, IMMUNIZATIONS No Known Immunizations SOCIAL HISTORY [...]
--- OUTSIDE RECORDS SUMMARY | 2020-01-13 12:16 | XMS REPORT ---
Author Author Monique ANAYA Organization [facility] Address [address] [place] [address] Care Team Providers Care Health Spa Manager Name Role Phone NANCY ANAYA Unavailable PROBLEMS Type Condition ICD9-CM Code ZCI62-[place] Code Onset Dates Condition S tatus SNOMED Code Problem Panic disorder without agoraphobia F41.0 Active 16693324 Problem Agoraphobia F40.00 Active 42365620 Problem Fatigue R53.83 Active 32469204 Problem Varicose veins of both lower extremities I83.93 Active 58521794 Problem Mild chronic obstructive pulmonary disease J44.9 Active 653602839 Problem Mild persistent asthma without complication J45.30 Active 926782606 Problem Essential hypertension I10 Active 93619279 Problem Snoring R06.83 Active 62740286 Problem On home oxygen therapy Z99.81 Active 740245100407 Problem MRSA (methicillin resistant staph aureus) culture positive Z22.322 Active 737400139 Problem Major depressive disorder, recurrent episode, moderate F33.1 Active 406563374 Problem 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 Active 246121427 Problem Arthritis M19.90 Active 0260574 Problem Major depressive disorder in full remission F32.5 Active 30659410 Problem Social phobia F40.10 Active 996972 02 Problem Impaired circulation I99.9 Active 31413984 Problem Slow transit constipation K59.01 Acti ve 70639846 Problem Neuropathy G62.9 Active 002107142 Problem History of illicit drug use Z87.898 Ac tive 885597719 Problem Dysthymic disorder F34.1 Active 7 3500370 Problem Mood disorder F39 Active 018496 05 Problem Psychotic disorder F29 Active 6 3499035 Problem Hypertension, benign I10 Active 53448015 Problem Onychomycosis B35.1 Active 280317 008 ALLERGIES No Information ENCOUNTERS Encounter Location Date Diagnosis [facility] [address] [address] Aug, [facility] [address] [address] Jul, [facility] [address] [address] Jul, [place] [address] [address] Jun, [place] [address] [address] Jun, Morbid obesity E66.01 [place] [address] [address] May, Morbid obesity E66.01 [place] [address] [address] May, Encounter for immunization Z23 [place] [address] [address] May, Major depressive disorder, recurrent epi sode, moderate F33.1 ; Panic disorder without agoraphobia F41.0 and Morbid obesity E66.01 [place] [address] [address] May, Major depressive disorder in full remiss ion F32.5 and Panic disorder without agoraphobia F41.0 [place] [address] [address] Apr, Morbid obesity E66.01 [place] [address] [address] Apr, Slow transit constipation K59.01 and Lois lulitis of left lower extremity L03.116 [place] [address] [address] Apr, Morbid obesity E66.01 [place] [address] [address] Apr, [place] [address] [address] Apr, Major depressive disorder, recurrent epi sode, moderate F33.1 and Panic disorder without agoraphobia F41.0 [place] [address] [address] Mar, Viral upper respiratory tract infection J06.[address] [address] Mar, Bronchitis J40 and Encounter for immuniz ation Z23 [address] [address] Mar, Morbid obesity E66.[address] [address] Feb, Major depressive disorder, recurrent epi sode, moderate F33.1 and Panic disorder without agoraphobia F41.[address] [address] Feb, Morbid obesity E66.[address] [address] Feb, Onychomycosis B35.1 ; Type 2 diabetes me llitus with diabetic neuropathic arthropathy E11.610 and Xerosis of skin L85.[address] [address] Feb, Major depressive disorder, recurrent epi sode, moderate F33.1 ; Panic disorder without agoraphobia F41.0 and Morbid obesity E66.[address] [address] Jan, Major depressive disorder in full remiss ion F32.5 and Panic disorder without agoraphobia F41.[address] [address] Jan, Pneumonia of both lower lobes due to inf ectious organism J18.1 and Morbid obesity E66.[address] [place] [address] Jan, [place] [address] [address] Jan, Major depressive disorder in full remiss ion F32.5 and Panic disorder without agoraphobia F41.0 [place] [address] [address] Jan, [place] [address] [address] Jan, Major depressive disorder, recurrent epi sode, moderate F33.1 ; Panic disorder without agoraphobia F41.0 and Morbid obesity E66.01 [place] [address] [address] Dec, Bilious vomiting with nausea R11.14 ; Co ughing R05 and Choking, subsequent encounter T17.308D [place] [address] [address] Dec, Morbid obesity E66.01 [place] [address] [address] Dec, Major depressive disorder, recurrent epi sode, moderate F33.1 and Panic disorder without agoraphobia F41.0 [place] [address] [address] Dec, [place] [address] [address] Dec, Major depressive disorder, recurrent epi sode, moderate F33.1 [place] [address] [address] Nov, Major depressive disorder, recurrent epi sode, moderate F33.1 ; Panic disorder without agoraphobia F41.0 and Morbid obesity E66.01 [place] [address] [address] Nov, Morbid obesity E66.01 [place] [address] [address] Nov, Major depressive disorder, recurrent epi sode, moderate F33.1 and Panic disorder without agoraphobia F41.0 [facility] [place] [address] [place] [id number] [place] [address] Nov, Allergic reaction, initial e ncounter T78.40XA and Morbid obesity E66.01 [place] [address] [address] Nov, [place] [address] [address] Nov, Morbid obesity E66.01 ; Swallowing probl em R13.10 and Hypertension, benign I10 [facility] [place] [address] [place] [id number] [place] [address] Nov, Morbid obesity E66.01 ; COPD exacerbation J44.1 and Non- recurrent acute suppurative otitis media of left ear without spontaneous rupture of tympanic membrane H66.002 [place] [address] [address] Nov, Onychomycosis B35.1 ; Neuropathy G62.9 a nd Fissure in skin of foot R23.4 [place] [address] [address] October, Major depressive disorder, recurrent epi sode, moderate F33.1 ; Panic disorder without agoraphobia F41.0 and Morbid obesity E66.01 [facility] [place] [address] [address] [place] [id number] [place] [address] October, Viral upper respiratory trac t infection J06.9 [place] [address] [address] October, [address] [address] October, Major depressive disorder, recurrent epi sode, moderate F33.1 and Panic disorder without agoraphobia F41.0 [place] [address] [place] [id number] [place] [address] October, [facility] [address] [address] October, [facility] [address] [address] October, [facility] [address] [address] October, [facility] [address] [address] October, [facility] [address] [address] October, [facility] [address] [address] October, Major depressive disorder, recurrent epi sode, moderate F33.1 and Panic disorder without agoraphobia F41.0 [facility] [address] [address] Sep, Morbid obesity E66.01 and Lumbar neuriti s M54.16 [facility] [address] [address] Sep, Panic disorder without agoraphobia F41.0 and Major depressive disorder, recurrent episode, moderate F33.1 [facility] [address] [facility] [id number] [address] [place] [address] Sep, Gastroenteritis K52.9 ; Low back pain M54.5 ; Other chronic pain G89.29 and Morbid obesity E66.01 [facility] [address] [address] Sep, Major depressive disorder, recurrent epi sode, moderate F33.1 ; Panic disorder without agoraphobia F41.0 and Social phobia F40.10 [facility] [address] [address] Sep, Panic disorder without agoraphobia F41.0 [place] [address] [address] Sep, Panic disorder without agoraphobia F41.0 [place] [address] [address] Aug, Panic disorder without agoraphobia F41.0 ; Major depressive disorder, recurrent episode, moderate F33.1 ; Social phobia F40.10 ; Psychotic disorder F29 ; Tardive dyskinesia G24.01 and Morbid obesity E66.01 [place] [address] [address] Aug, Dysthymic disorder F34.1 and Psychotic d isorder F29 [place] [address] [address] Aug, Encounter for Medicare annual wellness e xam Z00.00 ; Morbid obesity E66.01 and Type 2 diabetes mellitus with diabetic neuropathic arthropathy E11.610 [place] [address] [address] Aug, Dysthymic disorder F34.1 and Psychotic d isorder F29 [place] [address] [address] Aug, Neuropathy G62.9 ; Onychomycosis B35.1 a nd Xerosis of skin L85.3 [place] [address] [address] Jul, [place] [address] [address] Jul, Mood disorder F39 ; Wheezing R06.2 ; Diego sanchez, initial encounter T17.308A and Coughing R05 [place] [address] [address] 07 Jul, 2018 Low back pain M54.5 [facility] [address] [facility] [id number] [address] [place] [address] Jun, Flu-like symptoms R68.89 ; B NJ 45.0-49.9, adult Z68.42 ; COPD exacerbation J44.1 and Acute bronchitis J20.9 [place] [address] [address] Jun, [place] [address] [address] May, [place] [address] [address] May, Onychomycosis B35.1 and Type 2 diabetes mellitus with diabetic neuropathic arthropathy E11.610 [place] [address] [address] May, Low back pain M54.5 and Edema leg R60.0 [place] [address] [address] 11 May, 2018 BMI 45.0-49.9, adult Z68.42 ; Well woman exam with routine gynecological exam Z01.419 and Breast cancer screening Z12.31 [place] [address] [address] 19 Apr, 2018 Arthritis M19.90 [place] [address] [address] 16 Apr, 2018 Arthritis M19.90 and Otalgia of both ear s H92.03 [place] [address] [address] Feb, [place] [address] [address] 28 Feb, 2018 Low back pain M54.5 ; Other chronic pain G89.29 ; Exertional asthma J45.990 and Encounter for immunization Z23 [place] [address] [address] Feb, Skin fissures R23.4 ; Neuropathy G62.9 a nd Onychomycosis B35.1 [place] [address] [address] Feb, Dysthymic disorder F34.1 [facility] [address] [address] Feb, [facility] [address] [address] Jan, [facility] [address] [address] Jan, Abrasion of right elbow, initial encount er S50.311A ; Abrasion, right knee, initial encounter S80.211A and Sprain of other ligament of right ankle, initial encounter S93.491A [place] [address] [address] Jan, [facility] [address] [facility] [id number] [address] [place] [address] Jan, Injury of left ankle, initia l encounter S99.912A ; Fall down stairs, initial encounter W10.8XXA and BMI 45.0-49.9, adult Z68.42 [place] [address] [address] Jan, COPD exacerbation J44.1 [place] [address] [address] Jan, Dysfunction of both eustachian tubes H69 .83 [place] [address] [address] 08 Jan, 2018 Bronchitis J40 and Acute suppurative giovana tis media of left ear without spontaneous rupture of tympanic membrane, recurrence not specified H66.002 [place] [address] [address] Jan, [place] [address] [address] Jan, Bronchitis J40 and BMI 40.0-44.9, adult Z68.41 [place] [address] [address] Jan, [place] [address] [address] Dec, Gastric pain R10.[address] [address] Dec, [address] [address] Dec, History of illicit drug use Z87.898 ; Ne uropathy G62.9 ; COPD (chronic obstructive pulmonary disease) with chronic bronchitis J44.9 and Acute pain of right knee M25.[address] [address] Nov, [address] [address] Nov, Onychomycosis B35.1 and Contusion of lef t foot, subsequent encounter S90.32XD [address] [address] Nov, COPD exacerbation J44.[address] [address] Sep, [address] [address] Sep, Dysthymic disorder F34.1 ; Tobacco abuse Z72.0 ; Pain in right knee M25.561 ; Pain in left knee M25.562 ; Other chronic pain G89.29 and BMI 40.0- 44.9, adult Z68.[address] [address] Aug, Major depressive disorder, recurrent epi sode, moderate F33.1 and Social phobia F40.[address] [address] Aug, Dysthymic disorder F34.1 ; Non-pressure chronic ulcer of left thigh, unspecified ulcer stage L97.129 ; Tobacco abuse Z72.0 ; Mild chronic obstructive pulmonary disease J44.9 and Forgetfulness R68.89 [place] [address] [address] Aug, Onychomycosis B35.1 ; Fissure in skin of foot R23.4 and Foot callus L84 [facility] [address] [facility] [id number] [address] [address] Jul, Right medial knee pain M25.5 61 ; Upper respiratory tract infection, unspecified type J06.9 and BMI 40.0-44.9, adult Z68.41 [facility] [address] 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 [place] [address] [address] Jan, Onychomycosis B35.1 and Neuropathy G62.9 [place] [address] [address] Dec, [place] [address] [address] Dec, [place] [address] [address] Nov, [place] [address] [address] Aug, [place] [address] [address] Aug, [facility] [address] [address] Jul, [facility] [address] [address] Jul, [facility] [address] [address] Jul, Decubitus ulcer of left thigh, stage 2 L 89.892 [facility] [address] [address] 17 Jul, 2016 Decubitus ulcer of left thigh, stage 2 L 89.892 [facility] [address] [address] 17 Jul, 2016 [facility] [address] [address] 15 Jul, 2016 Decubitus ulcer of left thigh, stage 2 L 89.892 [place] [address] [address] 14 Jul, 2016 [facility] [address] [address] 13 Jul, 2016 Cellulitis of other specified site L03.8 18 ; Illicit drug use F19.90 and Decubitus ulcer of left thigh, stage 2 L89.892 [place] [address] [address] 08 Jul, 2016 [facility] [address] [address] 06 Jul, 2016 Cellulitis of right breast N61.0 [facility] [address] [address] Jun, [place] [address] [address] Jun, [facility] [address] [address] Jun, Wheezing R06.2 and Arthralgia, unspecifi ed joint M25.50 [facility] [address] [place] [id number] [place] [address] May, [facility] [address] [address] May, [facility] [address] [address] 06 May, 2016 [facility] [address] [address] 05 May, 2016 Shortness of breath R06.02 [facility] [address] [address] 02 May, 2016 Onychomycosis B35.1 and Fissure in skin of foot R23.4 [place] [address] [place] [id number] [place] [address] 28 Apr, 2016 [facility] [address] [facility] [id number] [address] [place] [address] 18 Apr, 2016 Dizziness R42 [place] [address] [address] 14 Apr, 2016 Shortness of breath R06.02 ; Essential h ypertension I10 ; Dizziness R42 and On home oxygen therapy Z99.81 [place] [address] [place] [id number] [place] [address] Apr, [facility] [address] [address] 08 Apr, 2016 [facility] [address] [address] Apr, [facility] [address] [address] Apr, [facility] [address] [address] Apr, [facility] [address] [address] Apr, [facility] [address] [address] Apr, [place] [address] [address] Mar, Mild chronic obstructive pulmonary disea se J44.9 [facility] [address] [address] Mar, [place] [address] [address] Mar, Epigastric pain R10.13 ; Low back pain M 54.5 ; Other chronic pain G89.29 and Breast cancer screening Z12.39 [place] [address] [address] Mar, [place] [address] [address] Mar, [place] [address] [address] Feb, [place] [address] [address] Feb, [address] [address] Feb, Fissure in skin of foot R23.4 and Onycho mycosis B35.1 [place] [address] [address] Jan, Agoraphobia F40.00 [place] [address] [address] Dec, Agoraphobia F40.00 [place] [address] [address] Dec, Mild persistent asthma without complicat ion J45.30 ; Dysthymic disorder F34.1 and Upper respiratory tract infection, unspecified type J06.9 [place] [address] [address] Nov, Agoraphobia F40.00 [place] [address] [address] October, Agoraphobia F40.00 [place] [address] [address] Sep, Panic disorder without agoraphobia F41.0 ; Agoraphobia F40.00 and Dysthymic disorder F34.1 [place] [address] [address] Sep, Panic attacks F41.0 [place] [address] [address] Sep, [place] [address] [address] Sep, Panic disorder without agoraphobia F41.0 ; Varicose veins of both lower extremities I83.93 and Fatigue R53.83 [place] [address] [address] Sep, Fatigue R53.83 [place] [address] [address] Sep, [place] [address] [address] Aug, [place] [address] [address] Aug, [place] [address] [address] Aug, Type 2 diabetes mellitus with diabetic n europathic arthropathy E11.610 [facility] [address] [address] Aug, Panic disorder without agoraphobia F41.0 ; Agoraphobia F40.00 and Dysthymic disorder F34.1 [place] [address] [address] Aug, Shortness of breath R06.02 ; Panic attac ks F41.0 ; COPD (chronic obstructive pulmonary disease) J44.9 ; Tobacco abuse Z72.0 ; Family history of diabetes mellitus Z83.3 and Weight gain R63.5 [place] [address] [address] Aug, [place] [address] [address] Jul, [place] [address] [address] Jun, Onychomycosis B35.1 ; Neuropathy G62.9 a nd Impaired circulation I99.[address] [address] 09 Mar, 2015 Fissure in skin of foot R23.4 ; Onychomy cosis B35.1 and 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 [place] [address] [address] Feb, Family history of coronary arteriosclero sis V17.3 [place] [address] [address] 15 Feb, 2015 Allergic rhinitis due to pollen 477.0 ; Unspecified breast screening V76.10 ; Anxiety 300.00 and Family history of coronary arteriosclerosis V17.3 [place] [address] [address] Jan, [place] [address] [address] Dec, [place] [address] [address] Dec, Onychomycosis 110.1 and Skin fissures 70 9.8 [place] [address] [address] 14 Sep, 2014 [place] [address] [address] Sep, [place] [address] [address] Aug, [facility] [address] [id number] [place] [address] Aug, [facility] [address] [id number] [place] [address] Jul, [facility] [address] [id number] [place] [address] Jul, [facility] [address] [id number] [place] [address] Jun, [facility] [address] [id number] [place] [address] Jun, [facility] [address] [id number] [place] [address] Jun, [facility] [address] [id number] [place] [address] Jun, [facility] [address] [id number] [place] [address] Jun, [facility] [address] [id number] [place] [address] May, [facility] [address] [id number] [place] [address] May, [facility] [address] [id number] [place] [address] May, [facility] [address] [id number] [place] [address] May, [facility] [address] [id number] [place] [address] May, [facility] [address] [id number] [place] [address] May, [facility] [address] [id number] [place] [address] May, [facility] [address] [id number] [place] [address] May, [facility] [address] [id number] [place] [address] Apr, [facility] [address] [id number] [place] [address] Apr, [facility] [address] [id number] [place] [address] Apr, [facility] [address] [id number] [place] [address] Apr, [facility] [address] [id number] [place] [address] Apr, [facility] [address] [id number] [place] [address] Apr, [facility] [address] [id number] [place] [address] Apr, [facility] [address] [id number] [place] [address] Apr, [facility] [address] [id number] [place] [address] Apr, [facility] [address] [id number] [place] [address] Apr, [facility] [address] [id number] [place] [address] Mar, [facility] [address] [id number] [place] [address] Mar, [facility] [address] [id number] [place] [address] Mar, [facility] [address] [id number] [place] [address] Mar, [facility] [id number] [place] [address] Mar, [facility] [address] [id number] [place] [address] Mar, [facility] [address] [id number] [place] [address] Mar, [facility] [address] [facility] [id number] [place] [address] 27 Mar, 2013 [facility] [address] [facility] [id number] [place] [address] 24 Mar, 2013 [facility] [address] [facility] [id number] [place] [address] 23 Mar, 2013 [facility] [address] [facility] [id number] [place] [address] 23 Mar, 2013 [facility] [address] [facility] [id number] [place] [address] Mar, 2013 [facility] [address] [id number] [place] [address] 22 Mar, 2013 [facility] [address] [id number] [place] [address] 22 Mar, 2013 [facility] [address] [id number] [place] [address] 22 Mar, 2013 [facility] [facility] [address] [facility] [id number] [place] [address] 20 Mar, 2013 [facility] [address] [id number] [place] [address] 20 Mar, 2013 [facility] [address] [id number] [place] [address] 16 Mar, 2013 [facility] [address] [id number] [place] [address] 16 Mar, 2013 [facility] [address] [facility] [id number] [place] [address] 15 Mar, 2013 [facility] [address] [facility] [id number] [place] [address] 14 Mar, 2013 [facility] [address] [facility] [id number] [place] [address] 14 Mar, 2013 [facility] [address] [id number] [place] [address] 14 Mar, 2013 [facility] [address] [facility] [id number] [place] [address] 14 Mar, 2013 [facility] [address] [facility] [id number] [place] [address] 09 Mar, 2013 [facility] [address] [id number] [place] [address] Mar, 2013 [facility] [address] [id number] [place] [address] Mar, 2013 [facility] [address] [id number] [place] [address] Mar, 2013 [facility] [address] [id number] [place] [address] 30 Feb, 2013 [facility] [address] [id number] [place] [address] 30 Feb, 2013 [facility] [address] [id number] [place] [address] 30 Sep, 2013 [facility] [address] [id number] [place] [address] 30 Sep, 2013 [facility] [address] [id number] [place] [address] Sep, 2013 [facility] [address] [id number] [place] [address] Sep, 2013 [facility] [address] [id number] [place] [address] Sep, 2013 [facility] [address] [id number] [place] [address] Sep, 2013 [facility] [address] [id number] [place] [address] Sep, 2013 [facility] [address] [id number] [place] [address] Sep, 2013 [facility] [address] [id number] [place] [address] Sep, 2013 [facility] [address] [id number] [place] [address] Sep, 2013 [facility] [address] [id number] [place] [address] Jan, [facility] [address] [facility] [id number] [place] [address] Jan, [facility] [address] [facility] [id number] [place] [address] Jan, [facility] [address] [facility] [id number] [place] [address] Jan, [facility] [address] [facility] [id number] [place] [address] Jan, [facility] [address] [facility] [id number] [place] [address] Jan, [facility] [address] [id number] [place] [address] Jan, [facility] [address] [id number] [place] [address] Jan, [facility] [address] [id number] [place] [address] Jan, [facility] [address] [facility] [id number] [place] [address] Jan, [facility] [address] [id number] [place] [address] Jan, [facility] [address] [id number] [place] [address] Jan, [facility] [address] [id number] [place] [address] Jan, [facility] [address] [facility] [id number] [place] [address] Dec, [facility] [address] [id number] [place] [address] Dec, [facility] [address] [facility] [id number] [place] [address] Dec, [facility] [address] [id number] [place] [address] Dec, [facility] [address] [id number] [place] [address] Dec, 2013 [facility] [address] [facility] [id number] [place] [address] Dec, 2013 [facility] [address] [facility] [id number] [place] [address] Dec, 2013 [facility] [address] [facility] [id number] [place] [address] Dec, 2013 [facility] [address] [facility] [id number] [place] [address] Dec, 2013 [facility] [address] [facility] [id number] [place] [address] Dec, 2013 [facility] [address] [id number] [place] [address] Dec, 2013 [facility] [address] [id number] [place] [address] Dec, 2013 [facility] [address] [facility] [id number] [place] [address] Dec, 2013 [facility] [address] [id number] [place] [address] Dec, 2013 [facility] [address] [id number] [place] [address] Dec, 2013 [facility] [address] [id number] [place] [address] Dec, 2013 [facility] [address] [facility] [id number] [place] [address] Dec, 2013 [facility] [address] [facility] [id number] [place] [address] Dec, 2013 [facility] [address] [facility] [id number] [place] [address] Nov, [facility] [address] [id number] [place] [address] Nov, [facility] [address] [id number] [place] [address] Nov, [facility] [address] [facility] [id number] [place] [address] Nov, [facility] [address] [facility] [id number] [place] [address] Nov, [facility] [address] [id number] [place] [address] Nov, [facility] [address] [facility] [id number] [place] [address] Nov, [facility] [address] [facility] [id number] [place] [address] Nov, [facility] [address] [id number] [place] [address] Nov, [facility] [address] [id number] [place] [address] Nov, [facility] [address] [id number] [place] [address] Nov, [facility] [address] [facility] [id number] [place] [address] Nov, [facility] [address] [id number] [place] [address] Nov, [facility] [address] [id number] [place] [address] Nov, [facility] [address] [id number] [place] [address] Nov, [facility] [address] [facility] [id number] [place] [address] Nov, [facility] [address] [id number] [place] [address] Nov, [facility] [address] [facility] [id number] [place] [address] Nov, [facility] [address] [id number] [place] [address] Nov, [facility] [address] [id number] [place] [address] Nov, [facility] [address] [id number] [place] [address] October, [facility] [address] [id number] [place] [address] October, [facility] [address] [id number] [place] [address] October, [facility] [address] [id number] [place] [address] October, [facility] [address] [id number] [place] [address] Sep, [facility] [address] [id number] [place] [address] Sep, [facility] [address] [id number] [place] [address] Sep, [facility] [address] [id number] [place] [address] Sep, [facility] [address] [id number] [place] [address] Sep, [facility] [address] [id number] [place] [address] Sep, [facility] [address] [id number] [place] [address] Sep, [facility] [address] [id number] [place] [address] Sep, [facility] [address] [id number] [place] [address] Sep, [facility] [address] [id number] [place] [address] Aug, [facility] [address] [id number] [place] [address] Aug, [facility] [address] [id number] [place] [address] Aug, [facility] [address] [facility] [id number] [place] [address] Aug, [facility] [address] [id number] [place] [address] Aug, [facility] [address] [id number] [place] [address] Aug, [facility] [address] [id number] [place] [address] Aug, [facility] [address] [facility] [id number] [place] [address] Aug, [facility] [address] [id number] [place] [address] Jul, [facility] [address] [id number] [place] [address] Jul, [facility] [address] [id number] [place] [address] Jun, [facility] [address] [id number] [place] [address] Jun, [facility] [address] [id number] [place] [address] Jun, [facility] [address] [id number] [place] [address] Jun, [facility] [address] [id number] [place] [address] Jun, [facility] [address] [id number] [place] [address] Jun, [facility] [address] [id number] [place] [address] Jun, [facility] [address] [id number] [place] [address] Jun, [facility] [address] [id number] [place] [address] Jun, [facility] [address] [id number] [place] [address] 14 Jun, 2013 [facility] [address] [id number] [place] [address] Jun, [facility] [address] [id number] [place] [address] Jun, [facility] [address] [id number] [place] [address] May, [facility] [address] [id number] [place] [address] May, [facility] [address] [id number] [place] [address] May, [facility] [address] [id number] [place] [address] May, [facility] [address] [id number] [place] [address] May, [facility] [address] [id number] [place] [address] May, [facility] [address] [id number] [place] [address] 26 May, 2013 [facility] [address] [id number] [place] [address] May, [facility] [address] [id number] [place] [address] May, [facility] [address] [id number] [place] [address] 16 May, 2013 [facility] [address] [id number] [place] [address] 16 May, 2013 [facility] [address] [id number] [place] [address] 16 May, 2013 [facility] [address] [id number] [place] [address] May, [facility] [address] [id number] [place] [address] 29 Apr, 2013 [facility] [address] [id number] [place] [address] Apr, [facility] [address] [id number] [place] [address] Mar, [facility] [address] [id number] [place] [address] Mar, [facility] [address] [id number] [place] [address] Feb, [facility] [address] [id number] [place] [address] Feb, [facility] [address] [id number] [place] [address] Feb, [facility] [address] [id number] [place] [address] Feb, [facility] [address] [id number] [place] [address] Jan, [facility] [address] [id number] [place] [address] Jan, [facility] [address] [id number] [place] [address] Jan, [facility] [address] [id number] [place] [address] Jan, [facility] [address] [id number] [place] [address] Jan, [facility] [address] [id number] [place] [address] Jan, [facility] [address] [id number] [place] [address] Dec, [facility] [address] [id number] [place] [address] Dec, [facility] [address] [id number] [place] [address] Dec, [facility] [address] [id number] [place] [address] Dec, [facility] [address] [id number] [place] [address] Nov, [facility] [address] [id number] [place] [address] October, [facility] [address] [id number] [place] [address] October, [facility] [address] [id number] [place] [address] October, [facility] [address] [id number] [place] [address] Sep, [facility] [address] [id number] [place] [address] Sep, [facility] [address] [id number] [place] [address] Jun, [facility] [address] [id number] [place] [address] Jun, [facility] [address] [id number] [place] [address] Jun, [facility] [address] [id number] [place] [address] Apr, [facility] [address] [id number] [place] [address] Apr, [facility] [address] [id number] [place] [address] Apr, [facility] [address] [id number] [place] [address] Apr, [facility] [address] [id number] [place] [address] Mar, [facility] [address] [id number] [place] [address] Mar, [facility] [address] [id number] [place] [address] Mar, [facility] [address] [id number] [place] [address] 23 Mar, 2012 [facility] [address] [id number] [place] [address] 29 Feb, 2012 [facility] [address] [id number] [place] [address] Feb, [facility] [address] [id number] [place] [address] Feb, [facility] [address] [id number] [place] [address] Jan, [facility] [address] [id number] [place] [address] Jan, [facility] [address] [id number] [place] [address] Jan, [facility] [address] [id number] [place] [address] Jan, [facility] [address] [id number] [place] [address] Dec, [facility] [address] [id number] [place] [address] Dec, [facility] [address] [id number] [place] [address] Nov, [facility] [address] [id number] [place] [address] Nov, [facility] [address] [id number] [place] [address] October, [facility] [address] [id number] [place] [address] October, [facility] [address] [id number] [place] [address] October, [facility] [address] [id number] [place] [address] Sep, [facility] [address] [id number] [place] [address] Sep, [facility] [address] [id number] [place] [address] Sep, [facility] [address] [id number] [place] [address] Aug, [facility] [address] [id number] [place] [address] Aug, [facility] [address] [id number] [place] [address] Aug, [facility] [address] [id number] [place] [address] 15 Aug, 2011 [facility] [address] [id number] [place] [address] Aug, [facility] [address] [id number] [place] [address] Jul, [facility] [address] [id number] [place] [address] 16 Jul, 2011 [facility] [address] [id number] [place] [address] Jul, [facility] [address] [id number] [place] [address] Jul, [facility] [address] [id number] [place] [address] Jul, [facility] [address] [id number] [place] [address] Jul, [facility] [address] [id number] [place] [address] Jul, [facility] [address] [id number] [place] [address] Jul, [facility] [address] [id number] [place] [address] Jun, [facility] [address] [id number] [place] [address] Jun, [facility] [address] [id number] [place] [address] May, [facility] [address] [id number] [place] [address] May, [facility] [address] [id number] [place] [address] May, [facility] [address] [id number] [place] [address] May, [facility] [address] [id number] [place] [address] Apr, [facility] [address] [id number] [place] [address] Apr, [facility] [address] [id number] [place] [address] Apr, [facility] [address] [id number] [place] [address] Mar, [facility] [address] [id number] [place] [address] Mar, [facility] [address] [id number] [place] [address] Mar, [facility] [address] [id number] [place] [address] Mar, [facility] [address] [id number] [place] [address] Dec, [facility] [address] [id number] [place] [address] October, [facility] [address] [id number] [place] [address] May, [facility] [address] [id number] [place] [address] May, [facility] [address] [id number] [place] [address] May, [facility] [address] [id number] [place] [address] May, [facility] [address] [id number] [place] [address] Mar, [facility] [address] [id number] [place] [address] Mar, [facility] [address] [id number] [place] [address] May, [facility] [id number] [place] [address] May, [facility] [address] [address] May, [facility] [id number] [place] [address] May, [facility] [id number] [place] [address] Apr, [facility] [id number] [place] [address] Apr, [facility] [address] [id number] [place] [address] October, IMMUNIZATIONS No Known Immunizations SOCIAL HISTORY Never Assessed REASON FOR VISIT PLAN OF CARE VITAL SIGNS Height 64 in 2013-11-17 Weight 212.1 lbs 2013-11-17 Heart Rate 76 bpm 2013-11-17 Respiratory Rate 18 2013-11-17 Blood pressure systolic 110 mmHg 2013-11-17 Blood pressure diastolic 70 mmHg 2013-11-17 MEDICATIONS Unknown Medications RESULTS No Results PROCEDURES Procedure Date Ordered Result Body Site COMPLETE CBC W/AUTO DIFF WBC November 17, 2013 VENIPUNCT, ROUTINE* November 17, 2013 INSTRUCTIONS MEDICATIONS ADMINISTERED No Known Medications [...]
--- OUTSIDE RECORDS SUMMARY | 2020-01-13 12:17 | XMS REPORT ---
Author Author Monique RAHMAN Organization [facility] Address [address] [place] [address] Care Team Providers Care Carport Erector Name Role Phone RASHEED RAHMAN Unavailable PROBLEMS Type Condition ICD9-CM Code TBC14-IG Code Onset Dates Condition S tatus SNOMED Code Problem Panic disorder without agoraphobia F41.0 Active 69376879 Problem Agoraphobia F40.00 Active 21130151 Problem Fatigue R53.83 Active 72242348 Problem Varicose veins of both lower extremities I83.93 Active 12046639 Problem Mild chronic obstructive pulmonary disease J44.9 Active 846019937 Problem Mild persistent asthma without complication J45.30 Active 644852494 Problem Essential hypertension I10 Active 22011752 Problem Snoring R06.83 Active 99348213 Problem On home oxygen therapy Z99.81 Active 652121787959 Problem MRSA (methicillin resistant staph aureus) culture positive Z22.322 Active 217351230 Problem Major depressive disorder, recurrent episode, moderate F33.1 Active 519269552 Problem 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 Active 685168571 Problem Arthritis M19.90 Active 1749269 Problem Major depressive disorder in full remission F32.5 Active 40732517 Problem Social phobia F40.10 Active 734251 02 Problem Impaired circulation I99.9 Active 58168468 Problem Slow transit constipation K59.01 Acti ve 88141215 Problem Neuropathy G62.9 Active 737682920 Problem History of illicit drug use Z87.898 Ac tive 870090530 Problem Dysthymic disorder F34.1 Active 7 6307916 Problem Mood disorder F39 Active 245537 05 Problem Psychotic disorder F29 Active 6 7640155 Problem Hypertension, benign I10 Active 20353506 Problem Onychomycosis B35.1 Active 451911 008 ALLERGIES No Information ENCOUNTERS Encounter Location Date Diagnosis [facility] [address] [address] Aug, [place] [address] [address] Jul, [place] [address] [address] Jul, [place] [address] [address] May, Morbid obesity E66.01 [place] [address] [address] May, Encounter for immunization Z23 [place] [address] [address] May, Major depressive disorder, recurrent epi sode, moderate F33.1 ; Panic disorder without agoraphobia F41.0 and Morbid obesity E66.01 [place] [address] [address] May, Major depressive disorder in full remiss ion F32.5 and Panic disorder without agoraphobia F41.0 [place] [address] [address] Apr, Morbid obesity E66.01 [place] [address] [address] Apr, Slow transit constipation K59.01 and Lois lulitis of left lower extremity L03.116 [place] [address] [address] Apr, Morbid obesity E66.01 [place] [address] [address] Apr, [place] [address] [address] Apr, Major depressive disorder, recurrent epi sode, moderate F33.1 and Panic disorder without agoraphobia F41.0 [place] [address] [address] Mar, Viral upper respiratory tract infection J06.9 [place] [address] [address] 10 Mar, 2019 Bronchitis J40 and Encounter for immuniz ation Z23 [place] [address] [address] Mar, Morbid obesity E66.01 [place] [address] [address] Feb, Major depressive disorder, recurrent epi sode, moderate F33.1 and Panic disorder without agoraphobia F41.0 [place] [address] [address] Feb, Morbid obesity E66.01 [place] [address] [address] 06 Feb, 2019 Onychomycosis B35.1 ; Type 2 diabetes me llitus with diabetic neuropathic arthropathy E11.610 and Xerosis of skin L85.3 [place] [address] [address] 04 Feb, 2019 Major depressive disorder, recurrent epi sode, moderate F33.1 ; Panic disorder without agoraphobia F41.0 and Morbid obesity E66.01 [place] [address] [address] Jan, Major depressive disorder in full remiss ion F32.5 and Panic disorder without agoraphobia F41.0 [place] [address] [address] Jan, Pneumonia of both lower lobes due to inf ectious organism J18.1 and Morbid obesity E66.01 [place] [address] [address] Jan, [address] [address] Jan, Major depressive disorder in full remiss ion F32.5 and Panic disorder without agoraphobia F41.0 [place] [address] [address] Jan, [place] [address] [address] Jan, Major depressive disorder, recurrent epi sode, moderate F33.1 ; Panic disorder without agoraphobia F41.0 and Morbid obesity E66.01 [place] [address] [address] Dec, Bilious vomiting with nausea R11.14 ; Co ughing R05 and Choking, subsequent encounter T17.308D [place] [address] [address] Dec, Morbid obesity E66.01 [place] [address] [address] Dec, Major depressive disorder, recurrent epi sode, moderate F33.1 and Panic disorder without agoraphobia F41.0 [place] [address] [address] Dec, [place] [address] [address] Dec, Major depressive disorder, recurrent epi sode, moderate F33.1 [place] [address] [address] Nov, Major depressive disorder, recurrent epi sode, moderate F33.1 ; Panic disorder without agoraphobia F41.0 and Morbid obesity E66.01 [place] [address] [address] Nov, Morbid obesity E66.01 [place] [address] [address] Nov, Major depressive disorder, recurrent epi sode, moderate F33.1 and Panic disorder without agoraphobia F41.0 [facility] [address] [facility] [id number] [address] [place] [address] Nov, Allergic reaction, initial e ncounter T78.40XA and Morbid obesity E66.[address] [address] Nov, [place] [address] [address] Nov, Morbid obesity E66.01 ; Swallowing probl em R13.10 and Hypertension, benign I10 [facility] [place] [id number] [address] [place] [address] 07 Nov, 2018 Morbid obesity E66.01 ; COPD exacerbation J44.1 and Non- recurrent acute suppurative otitis media of left ear without spontaneous rupture of tympanic membrane H66.[address] [address] Nov, Onychomycosis B35.1 ; Neuropathy G62.9 a nd Fissure in skin of foot R23.[address] [address] October, Major depressive disorder, recurrent epi sode, moderate F33.1 ; Panic disorder without agoraphobia F41.0 and Morbid obesity E66.01 [facility] [place] [id number] [address] [place] [address] October, Viral upper respiratory trac t infection J06.9 [place] [address] [address] October, [address] [address] October, Major depressive disorder, recurrent epi sode, moderate F33.1 and Panic disorder without agoraphobia F41.0 [place] [address] [address] October, [place] [address] [address] October, [place] [id number] [place] [address] October, [facility] [address] [address] October, [facility] [address] [address] October, [facility] [address] [address] October, [facility] [address] [address] October, Major depressive disorder, recurrent epi sode, moderate F33.1 and Panic disorder without agoraphobia F41.0 [place] [address] [address] Sep, Morbid obesity E66.01 and Lumbar neuriti s M54.16 [place] [address] [address] Sep, Panic disorder without agoraphobia F41.0 and Major depressive disorder, recurrent episode, moderate F33.1 [facility] [address] [facility] [id number] [address] [place] [address] Sep, Gastroenteritis K52.9 ; Low back pain M54.5 ; Other chronic pain G89.29 and Morbid obesity E66.01 [facility] [address] [address] Sep, Major depressive disorder, recurrent epi sode, moderate F33.1 ; Panic disorder without agoraphobia F41.0 and Social phobia F40.10 [facility] [address] [address] Sep, Panic disorder without agoraphobia F41.0 [facility] [address] [address] Sep, Panic disorder without agoraphobia F41.0 [facility] [address] [address] Aug, Panic disorder without agoraphobia F41.0 ; Major depressive disorder, recurrent episode, moderate F33.1 ; Social phobia F40.10 ; Psychotic disorder F29 ; Tardive dyskinesia G24.01 and Morbid obesity E66.01 [place] [address] [address] Aug, Dysthymic disorder F34.1 and Psychotic d isorder F29 [place] [address] [address] Aug, Encounter for Medicare annual wellness e xam Z00.00 ; Morbid obesity E66.01 and Type 2 diabetes mellitus with diabetic neuropathic arthropathy E11.610 [place] [address] [address] Aug, Dysthymic disorder F34.1 and Psychotic d isorder F29 [place] [address] [address] Aug, Neuropathy G62.9 ; Onychomycosis B35.1 a nd Xerosis of skin L85.3 [place] [address] [address] Jul, [address] [address] Jul, Mood disorder F39 ; Wheezing R06.2 ; Diego sanchez, initial encounter T17.308A and Coughing R05 [place] [address] [address] Jul, Low back pain M54.5 [facility] [address] [facility] [id number] [address] [place] [address] Jun, Flu-like symptoms R68.89 ; B VT 45.0-49.9, adult Z68.42 ; COPD exacerbation J44.1 and Acute bronchitis J20.9 [place] [address] [address] Jun, [place] [address] [address] May, [place] [address] [address] May, Onychomycosis B35.1 and Type 2 diabetes mellitus with diabetic neuropathic arthropathy E11.610 [place] [address] [address] May, Low back pain M54.5 and Edema leg R60.0 [place] [address] [address] May, BMI 45.0-49.9, adult Z68.42 ; Well woman exam with routine gynecological exam Z01.419 and Breast cancer screening Z12.31 [place] [address] [address] 19 Apr, 2018 Arthritis M19.90 [place] [address] [address] 16 Apr, 2018 Arthritis M19.90 and Otalgia of both ear s H92.03 [place] [address] [address] Feb, [place] [address] [address] Feb, Low back pain M54.5 ; Other chronic pain G89.29 ; Exertional asthma J45.990 and Encounter for immunization Z23 [place] [address] [address] Feb, Skin fissures R23.4 ; Neuropathy G62.9 a nd Onychomycosis B35.1 [place] [address] [address] 05 Feb, 2018 Dysthymic disorder F34.1 [place] [address] [address] Feb, [place] [address] [address] Jan, [facility] [address] [address] Jan, Abrasion of right elbow, initial encount er S50.311A ; Abrasion, right knee, initial encounter S80.211A and Sprain of other ligament of right ankle, initial encounter S93.491A [facility] [address] [address] Jan, [facility] [address] [facility] [id number] [address] [place] [address] Jan, Injury of left ankle, initia l encounter S99.912A ; Fall down stairs, initial encounter W10.8XXA and BMI 45.0-49.9, adult Z68.42 [place] [address] [address] Jan, COPD exacerbation J44.1 [place] [address] [address] Jan, Dysfunction of both eustachian tubes H69 .83 [place] [address] [address] 08 Jan, 2018 Bronchitis J40 and Acute suppurative giovana tis media of left ear without spontaneous rupture of tympanic membrane, recurrence not specified H66.002 [facility] [address] [address] Jan, [place] [address] [address] Jan, Bronchitis J40 and BMI 40.0-44.9, adult Z68.41 [place] [address] [address] Jan, [place] [address] [address] Dec, Gastric pain R10.9 [place] [address] [address] Dec, [place] [address] [address] Dec, History of illicit drug use Z87.898 ; Ne uropathy G62.9 ; COPD (chronic obstructive pulmonary disease) with chronic bronchitis J44.9 and Acute pain of right knee M25.561 [place] [address] [address] Nov, [place] [address] [address] Nov, Onychomycosis B35.1 and Contusion of lef t foot, subsequent encounter S90.32XD [address] [address] Nov, COPD exacerbation J44.1 [place] [address] [address] Sep, [place] [address] [address] Sep, Dysthymic disorder F34.1 ; Tobacco abuse Z72.0 ; Pain in right knee M25.561 ; Pain in left knee M25.562 ; Other chronic pain G89.29 and BMI 40.0- 44.9, adult Z68.[address] [address] Aug, Major depressive disorder, recurrent epi sode, moderate F33.1 and Social phobia F40.[address] [address] Aug, Dysthymic disorder F34.1 ; Non-pressure chronic ulcer of left thigh, unspecified ulcer stage L97.129 ; Tobacco abuse Z72.0 ; Mild chronic obstructive pulmonary disease J44.9 and Forgetfulness R68.89 [place] [address] [address] 09 Aug, 2017 Onychomycosis B35.1 ; Fissure in skin of foot R23.4 and Foot callus L84 [facility] [address] [facility] [id number] [address] [address] Jul, Right medial knee pain M25.5 61 ; Upper respiratory tract infection, unspecified type J06.9 and BMI 40.0-44.9, adult Z68.41 [facility] [address] 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 [place] [address] [address] Jan, Onychomycosis B35.1 and Neuropathy G62.9 [place] [address] [address] Dec, [place] [address] [address] Dec, [place] [address] [address] Nov, [place] [address] [address] Aug, [place] [address] [address] Aug, [place] [address] [address] Jul, [place] [address] [address] Jul, [place] [address] [address] 17 Jul, 2016 Decubitus ulcer of left thigh, stage 2 L 89.892 [facility] [address] [address] 17 Jul, 2016 Decubitus ulcer of left thigh, stage 2 L 89.892 [facility] [address] [address] 17 Jul, 2016 [facility] [address] [address] 15 Jul, 2016 Decubitus ulcer of left thigh, stage 2 L 89.892 [facility] [address] [address] 14 Jul, 2016 [facility] [address] [address] 13 Jul, 2016 Cellulitis of other specified site L03.8 18 ; Illicit drug use F19.90 and Decubitus ulcer of left thigh, stage 2 L89.892 [facility] [address] [address] 08 Jul, 2016 [place] [address] [address] 06 Jul, 2016 Cellulitis of right breast N61.0 [facility] [address] [address] Jun, [facility] [address] [address] Jun, [facility] [address] [address] Jun, Wheezing R06.2 and Arthralgia, unspecifi ed joint M25.50 [facility] [address] [address] May, [facility] [address] [address] May, [facility] [address] [address] May, [facility] [address] [address] 05 May, 2016 Shortness of breath R06.02 [facility] [address] [address] 02 May, 2016 Onychomycosis B35.1 and Fissure in skin of foot R23.4 [facility] [address] [address] 28 Apr, 2016 [facility] [address] [facility] [id number] [address] [place] [address] 18 Apr, 2016 Dizziness R42 [place] [address] [address] 14 Apr, 2016 Shortness of breath R06.02 ; Essential h ypertension I10 ; Dizziness R42 and On home oxygen therapy Z99.81 [facility] [address] [address] Apr, [place] [address] [address] 08 Apr, 2016 [facility] [address] [address] 07 Apr, 2016 [place] [address] [address] Apr, [facility] [address] [address] Apr, [facility] [address] [address] Apr, [facility] [address] [address] Apr, [facility] [address] [address] Mar, Mild chronic obstructive pulmonary disea se J44.9 [facility] [address] [address] Mar, [place] [address] [address] Mar, Epigastric pain R10.13 ; Low back pain M 54.5 ; Other chronic pain G89.29 and Breast cancer screening Z12.39 [place] [address] [address] Mar, [facility] [address] [address] Mar, [place] [address] [address] Feb, [place] [address] [address] Feb, [place] [address] [address] Feb, Fissure in skin of foot R23.4 and Onycho mycosis B35.1 [place] [address] [address] Jan, Agoraphobia F40.00 [place] [address] [address] Dec, Agoraphobia F40.00 [place] [address] [address] Dec, Mild persistent asthma without complicat ion J45.30 ; Dysthymic disorder F34.1 and Upper respiratory tract infection, unspecified type J06.9 [place] [address] [address] Nov, Agoraphobia F40.00 [place] [address] [address] October, Agoraphobia F40.00 [place] [address] [address] Sep, Panic disorder without agoraphobia F41.0 ; Agoraphobia F40.00 and Dysthymic disorder F34.1 [place] [address] [address] Sep, Panic attacks F41.0 [place] [address] [address] Sep, [place] [address] [address] Sep, Panic disorder without agoraphobia F41.0 ; Varicose veins of both lower extremities I83.93 and Fatigue R53.83 [place] [address] [address] Sep, Fatigue R53.83 [place] [address] [address] Sep, [place] [address] [address] Aug, [place] [address] [address] Aug, [place] [address] [address] Aug, Type 2 diabetes mellitus with diabetic n europathic arthropathy E11.610 [place] [address] [address] Aug, Panic disorder without agoraphobia F41.0 ; Agoraphobia F40.00 and Dysthymic disorder F34.1 [place] [address] [address] Aug, Shortness of breath R06.02 ; Panic attac ks F41.0 ; COPD (chronic obstructive pulmonary disease) J44.9 ; Tobacco abuse Z72.0 ; Family history of diabetes mellitus Z83.3 and Weight gain R63.5 [place] [address] [address] Aug, [place] [id number] [address] Jul, [facility] [address] [address] Jun, Onychomycosis B35.1 ; Neuropathy G62.9 a nd Impaired circulation I99.9 [facility] [address] [address] Mar, Fissure in skin of foot R23.4 ; Onychomy cosis B35.1 and 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 [place] [address] [address] 18 Feb, 2015 Family history of coronary arteriosclero sis V17.3 [place] [address] [address] 15 Feb, 2015 Allergic rhinitis due to pollen 477.0 ; Unspecified breast screening V76.10 ; Anxiety 300.00 and Family history of coronary arteriosclerosis V17.3 [facility] [address] [address] Jan, [facility] [address] [address] Dec, [place] [address] [address] Dec, Onychomycosis 110.1 and Skin fissures 70 9.8 [facility] [address] [address] Sep, [facility] [address] [address] Sep, [facility] [address] [address] Aug, [facility] [address] [address] Aug, [facility] [address] [address] Jul, [facility] [address] [facility] [id number] [place] [address] Jul, [facility] [address] [id number] [place] [address] Jun, [facility] [address] [id number] [place] [address] Jun, [facility] [address] [id number] [place] [address] Jun, [facility] [address] [id number] [place] [address] Jun, [facility] [address] [id number] [place] [address] Jun, [facility] [address] [id number] [place] [address] May, [facility] [address] [id number] [place] [address] May, [facility] [address] [id number] [place] [address] May, [facility] [address] [id number] [place] [address] May, [facility] [address] [id number] [place] [address] May, [facility] [address] [id number] [place] [address] May, [facility] [address] [id number] [place] [address] May, [facility] [address] [id number] [place] [address] May, [facility] [address] [id number] [place] [address] Apr, [facility] [address] [id number] [place] [address] Apr, [facility] [address] [id number] [place] [address] Apr, [facility] [address] [id number] [place] [address] Apr, [facility] [address] [id number] [place] [address] Apr, [facility] [place] [facility] [address] [id number] [place] [address] Apr, [facility] [place] [facility] [address] [id number] [place] [address] Apr, [facility] [place] [facility] [address] [id number] [place] [address] Apr, [facility] [place] [facility] [address] [id number] [place] [address] Apr, [facility] [place] [facility] [address] [id number] [place] [address] Apr, [facility] [place] [facility] [address] [id number] [place] [address] Mar, [facility] [place] [facility] [address] [id number] [place] [address] Mar, [facility] [place] [facility] [address] [id number] [place] [address] Mar, [facility] [place] [facility] [address] [id number] [place] [address] Mar, [facility] [place] [facility] [address] [id number] [place] [address] Mar, [facility] [place] [facility] [address] [id number] [place] [address] Mar, [facility] [place] [facility] [id number] [place] [address] Mar, [facility] [place] [facility] [address] [id number] [place] [address] Mar, [facility] [place] [facility] [address] [id number] [place] [address] Mar, [facility] [place] [facility] [address] [facility] [id number] [place] [address] 23 Mar, 2013 [facility] [place] [facility] [address] [facility] [id number] [place] [address] 23 Mar, 2013 [facility] [place] [facility] [address] [facility] [id number] [place] [address] Mar, 2013 [facility] [place] [facility] [address] [id number] [place] [address] 22 Mar, 2014 [facility] [place] [facility] [address] [facility] [id number] [place] [address] Mar, 2013 [facility] [place] [facility] [address] [facility] [id number] [place] [address] 22 Mar, 2013 [facility] [place] [facility] [address] [id number] [place] [address] 20 Mar, 2013 [facility] [place] [facility] [address] [id number] [place] [address] 20 Mar, 2013 [facility] [place] [facility] [address] [id number] [place] [address] 16 Mar, 2013 [facility] [place] [facility] [address] [id number] [place] [address] 16 Mar, 2013 [facility] [place] [facility] [address] [id number] [place] [address] 15 Mar, 2013 [facility] [place] [facility] [address] [id number] [place] [address] 14 Mar, 2013 [facility] [place] [facility] [address] [id number] [place] [address] 14 Mar, 2013 [facility] [place] [facility] [address] [facility] [id number] [place] [address] 14 Mar, 2013 [facility] [place] [facility] [address] [id number] [place] [address] 14 Mar, 2013 [facility] [place] [facility] [address] [id number] [place] [address] 09 Mar, 2013 [facility] [place] [facility] [address] [id number] [place] [address] Mar, 2013 [facility] [place] [facility] [address] [facility] [id number] [place] [address] Mar, 2013 [facility] [place] [facility] [address] [facility] [id number] [place] [address] Mar, 2013 [facility] [place] [facility] [address] [id number] [place] [address] Feb, 2013 [facility] [place] [facility] [address] [id number] [place] [address] Feb, 2013 [facility] [place] [facility] [address] [facility] [id number] [place] [address] Feb, 2013 [facility] [place] [facility] [address] [id number] [place] [address] Feb, 2013 [facility] [place] [facility] [address] [id number] [place] [address] Feb, 2013 [facility] [place] [facility] [address] [id number] [place] [address] Feb, 2013 [facility] [place] [facility] [address] [id number] [place] [address] Feb, 2013 [facility] [place] [facility] [address] [id number] [place] [address] Feb, 2013 [facility] [place] [facility] [address] [id number] [place] [address] Feb, 2013 [facility] [place] [facility] [address] [id number] [place] [address] Feb, 2013 [facility] [place] [facility] [address] [id number] [place] [address] Feb, 2013 [facility] [place] [facility] [address] [id number] [place] [address] Feb, 2013 [facility] [place] [facility] [address] [id number] [place] [address] Jan, [facility] [place] [facility] [address] [id number] [place] [address] Jan, [facility] [place] [facility] [address] [id number] [place] [address] Jan, [facility] [place] [facility] [address] [id number] [facility] [place] [address] Jan, [facility] [place] [facility] [address] [facility] [id number] [place] [address] Jan, [facility] [place] [facility] [address] [id number] [place] [address] Jan, [facility] [place] [facility] [address] [id number] [place] [address] Jan, [facility] [place] [facility] [address] [id number] [place] [address] Jan, [facility] [place] [facility] [address] [id number] [place] [address] Jan, [facility] [place] [facility] [address] [id number] [place] [address] Jan, [facility] [place] [facility] [address] [id number] [place] [address] Jan, [facility] [place] [facility] [address] [id number] [place] [address] Jan, [facility] [place] [facility] [address] [id number] [place] [address] Jan, [facility] [place] [facility] [address] [id number] [place] [address] Dec, [facility] [place] [facility] [address] [id number] [place] [address] Dec, [facility] [place] [facility] [address] [id number] [place] [address] Dec, [facility] [place] [facility] [address] [id number] [place] [address] Dec, [facility] [place] [facility] [address] [id number] [place] [address] Dec, [facility] [place] [facility] [address] [id number] [place] [address] Dec, [facility] [place] [facility] [address] [id number] [place] [address] Dec, 2013 [facility] [place] [facility] [address] [facility] [id number] [place] [address] Dec, 2013 [facility] [place] [facility] [address] [facility] [id number] [place] [address] Dec, 2013 [facility] [place] [facility] [address] [id number] [place] [address] Dec, 2013 [facility] [place] [facility] [address] [facility] [id number] [place] [address] Dec, 2013 [facility] [place] [facility] [address] [facility] [id number] [place] [address] Dec, 2013 [facility] [place] [facility] [address] [id number] [place] [address] Dec, 2013 [facility] [place] [facility] [address] [id number] [place] [address] Dec, 2013 [facility] [place] [facility] [address] [id number] [place] [address] Dec, 2013 [facility] [place] [facility] [address] [id number] [place] [address] Dec, 2013 [facility] [place] [facility] [address] [id number] [place] [address] Dec, [facility] [place] [facility] [address] [id number] [place] [address] Dec, 2013 [facility] [place] [facility] [address] [id number] [place] [address] Nov, [facility] [place] [facility] [address] [facility] [id number] [place] [address] Nov, [facility] [place] [facility] [address] [id number] [place] [address] Nov, [facility] [place] [facility] [address] [id number] [place] [address] Nov, [facility] [place] [facility] [address] [id number] [place] [address] Nov, [facility] [place] [facility] [address] [facility] [id number] [place] [address] Nov, [facility] [place] [facility] [address] [facility] [id number] [facility] [place] [address] Nov, [facility] [place] [facility] [address] [facility] [id number] [place] [address] Nov, [facility] [place] [facility] [address] [facility] [id number] [facility] [place] [address] Nov, [facility] [place] [facility] [address] [facility] [id number] [facility] [place] [address] Nov, [facility] [place] [facility] [address] [facility] [id number] [place] [address] Nov, [facility] [place] [facility] [address] [id number] [place] [address] Nov, [facility] [place] [facility] [address] [id number] [place] [address] Nov, [facility] [place] [facility] [address] [facility] [id number] [place] [address] Nov, [facility] [place] [facility] [address] [id number] [place] [address] Nov, [facility] [place] [facility] [address] [id number] [place] [address] Nov, [facility] [place] [facility] [address] [id number] [place] [address] Nov, [facility] [place] [facility] [address] [facility] [id number] [place] [address] Nov, [facility] [place] [facility] [address] [facility] [id number] [place] [address] Nov, [facility] [place] [facility] [address] [facility] [id number] [place] [address] Nov, [facility] [place] [facility] [address] [id number] [place] [address] October, [facility] [place] [facility] [address] [id number] [place] [address] October, [facility] [place] [facility] [address] [id number] [place] [address] October, [facility] [place] [facility] [address] [id number] [place] [address] October, [facility] [place] [facility] [address] [id number] [place] [address] Sep, [facility] [place] [facility] [address] [id number] [place] [address] Sep, [facility] [place] [facility] [address] [id number] [place] [address] Sep, [facility] [place] [facility] [address] [id number] [place] [address] Sep, [facility] [place] [facility] [address] [id number] [place] [address] Sep, [facility] [place] [facility] [address] [id number] [place] [address] Sep, [facility] [place] [facility] [address] [id number] [place] [address] Sep, [facility] [place] [facility] [address] [id number] [place] [address] Sep, [facility] [place] [facility] [address] [id number] [place] [address] Sep, [facility] [place] [facility] [address] [id number] [place] [address] Aug, [facility] [place] [facility] [address] [id number] [place] [address] Aug, [facility] [place] [facility] [address] [id number] [place] [address] Aug, [facility] [place] [facility] [address] [id number] [place] [address] Aug, [facility] [place] [facility] [address] [id number] [place] [address] Aug, [facility] [place] [facility] [address] [id number] [place] [address] Aug, [facility] [place] [facility] [address] [id number] [place] [address] Aug, [facility] [place] [facility] [address] [id number] [place] [address] Aug, [facility] [place] [facility] [address] [id number] [place] [address] Jul, [facility] [place] [facility] [address] [id number] [place] [address] Jul, [facility] [place] [facility] [address] [id number] [place] [address] Jun, [facility] [place] [facility] [address] [id number] [place] [address] Jun, [facility] [place] [facility] [address] [id number] [place] [address] Jun, [facility] [place] [facility] [address] [id number] [place] [address] Jun, [facility] [place] [facility] [address] [id number] [place] [address] Jun, [facility] [place] [facility] [address] [id number] [place] [address] Jun, [facility] [place] [facility] [address] [id number] [place] [address] Jun, [facility] [place] [facility] [address] [id number] [place] [address] Jun, [facility] [place] [facility] [address] [id number] [place] [address] Jun, [facility] [place] [facility] [address] [id number] [place] [address] Jun, [facility] [place] [facility] [address] [id number] [place] [address] Jun, [facility] [place] [facility] [address] [id number] [place] [address] Jun, [facility] [place] [facility] [address] [id number] [place] [address] May, [facility] [place] [facility] [address] [id number] [place] [address] May, [facility] [place] [facility] [address] [id number] [place] [address] May, [facility] [place] [facility] [address] [id number] [place] [address] May, [facility] [place] [facility] [address] [id number] [place] [address] May, [facility] [place] [facility] [address] [id number] [place] [address] May, [facility] [place] [facility] [address] [id number] [place] [address] May, [facility] [place] [facility] [address] [id number] [place] [address] May, [facility] [place] [facility] [address] [id number] [place] [address] May, [facility] [place] [facility] [address] [id number] [place] [address] May, [facility] [place] [facility] [address] [id number] [place] [address] May, [facility] [place] [facility] [address] [id number] [place] [address] May, [facility] [place] [facility] [address] [id number] [place] [address] May, [facility] [place] [facility] [address] [id number] [place] [address] Apr, [facility] [place] [facility] [address] [id number] [place] [address] Apr, [facility] [place] [facility] [address] [id number] [place] [address] Mar, [facility] [place] [facility] [address] [id number] [place] [address] Mar, [facility] [place] [facility] [address] [id number] [place] [address] Feb, [facility] [place] [facility] [address] [id number] [place] [address] Feb, [facility] [place] [facility] [address] [id number] [place] [address] Feb, [facility] [place] [facility] [address] [id number] [place] [address] Feb, [facility] [place] [facility] [address] [id number] [place] [address] Jan, [facility] [place] [facility] [address] [id number] [place] [address] Jan, [facility] [place] [facility] [address] [id number] [place] [address] Jan, [facility] [place] [facility] [address] [id number] [place] [address] Jan, [facility] [place] [facility] [address] [id number] [place] [address] Jan, [facility] [place] [facility] [address] [id number] [place] [address] Jan, [facility] [place] [facility] [address] [id number] [place] [address] Dec, [facility] [place] [facility] [address] [id number] [place] [address] Dec, [facility] [place] [facility] [address] [id number] [place] [address] Dec, [facility] [place] [facility] [address] [id number] [place] [address] Dec, [facility] [place] [facility] [address] [id number] [place] [address] Nov, [facility] [place] [facility] [address] [id number] [place] [address] October, [facility] [place] [facility] [address] [id number] [place] [address] October, [facility] [place] [facility] [address] [id number] [place] [address] October, [facility] [place] [facility] [address] [id number] [place] [address] Sep, [facility] [address] [id number] [place] [address] Sep, [facility] [address] [id number] [place] [address] Jun, [facility] [address] [id number] [place] [address] Jun, [facility] [address] [id number] [place] [address] Jun, [facility] [id number] [place] [address] Apr, [facility] [address] [id number] [place] [address] Apr, [facility] [id number] [place] [address] Apr, [facility] [address] [id number] [place] [address] Apr, [facility] [address] [id number] [place] [address] Mar, [facility] [address] [id number] [place] [address] Mar, [facility] [address] [id number] [place] [address] Mar, [facility] [address] [id number] [place] [address] Mar, [facility] [address] [id number] [place] [address] Feb, [facility] [address] [id number] [place] [address] 27 Feb, 2012 [facility] [address] [id number] [place] [address] Feb, [facility] [address] [id number] [place] [address] Jan, [facility] [address] [id number] [place] [address] Jan, [facility] [address] [id number] [place] [address] Jan, [facility] [address] [id number] [place] [address] Jan, [facility] [address] [id number] [place] [address] Dec, [facility] [address] [id number] [place] [address] Dec, [facility] [address] [id number] [place] [address] Nov, [facility] [address] [id number] [place] [address] Nov, [facility] [address] [id number] [place] [address] October, [facility] [address] [id number] [place] [address] October, [facility] [address] [id number] [place] [address] October, [facility] [address] [id number] [place] [address] Sep, [facility] [address] [id number] [place] [address] Sep, [facility] [address] [id number] [place] [address] Sep, [facility] [address] [id number] [place] [address] Aug, [facility] [address] [id number] [place] [address] 26 Aug, 2011 [facility] [address] [id number] [place] [address] 15 Aug, 2011 [facility] [address] [id number] [place] [address] 15 Aug, 2011 [facility] [address] [id number] [place] [address] Aug, [facility] [address] [id number] [place] [address] 23 Jul, 2011 [facility] [address] [id number] [place] [address] 16 Jul, 2011 [facility] [address] [id number] [place] [address] 13 Jul, 2011 [facility] [id number] [place] [address] Jul, [facility] [address] [id number] [place] [address] Jul, [facility] [address] [id number] [place] [address] Jul, [facility] [address] [id number] [place] [address] Jul, [facility] [address] [id number] [place] [address] Jul, [facility] [address] [id number] [place] [address] Jun, [facility] [address] [id number] [place] [address] Jun, [facility] [id number] [place] [address] May, [facility] [address] [id number] [place] [address] May, [facility] [address] [id number] [place] [address] 08 May, 2011 [facility] [address] [id number] [place] [address] 08 May, 2011 [facility] [address] [id number] [place] [address] Apr, [facility] [address] [id number] [place] [address] Apr, [facility] [address] [id number] [place] [address] Apr, [facility] [address] [id number] [place] [address] Mar, [facility] [address] [id number] [place] [address] Mar, [facility] [address] [id number] [place] [address] Mar, [facility] [address] [id number] [place] [address] Mar[facility] [address] [id number] [place] [address] Dec, [facility] [address] [id number] [place] [address] October, [facility] [address] [id number] [place] [address] May, [facility] [address] [id number] [place] [address] May, [facility] [address] [id number] [place] [address] May, [facility] [address] [id number] [place] [address] May, [facility] [address] [id number] [place] [address] Mar, [facility] [address] [id number] [place] [address] Mar, [facility] [address] [id number] [place] [address] May[facility] [address] [id number] [place] [address] May, [facility] [address] [id number] [place] [address] May, [facility] [address] [id number] [place] [address] May, [facility] [address] [id number] [place] [address] Apr, [facility] [id number] [place] [address] Apr, [facility] [address] [id number] [place] [address] October, IMMUNIZATIONS No Known Immunizations SOCIAL HISTORY [...]
--- OUTSIDE RECORDS SUMMARY | 2020-01-13 12:17 | XMS REPORT ---
Author Author Monique ANAYA Organization [facility] Address [address] [place] [address] Care Team Providers Care Director [employer] Name Role Phone NANCY ANAYA Unavailable PROBLEMS Type Condition ICD9-CM Code OPP38-MQ Code Onset Dates Condition S tatus SNOMED Code Problem Panic disorder without agoraphobia F41.0 Active 85747876 Problem Agoraphobia F40.00 Active 97100676 Problem Fatigue R53.83 Active 60469922 Problem Varicose veins of both lower extremities I83.93 Active 95768922 Problem Mild chronic obstructive pulmonary disease J44.9 Active 242152388 Problem Mild persistent asthma without complication J45.30 Active 819553427 Problem Essential hypertension I10 Active 31632899 Problem Snoring R06.83 Active 72969176 Problem On home oxygen therapy Z99.81 Active 926297443333 Problem MRSA (methicillin resistant staph aureus) culture positive Z22.322 Active 668603615 Problem Major depressive disorder, recurrent episode, moderate F33.1 Active 941607745 Problem 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 Active 573511520 Problem Arthritis M19.90 Active 7013654 Problem Major depressive disorder in full remission F32.5 Active 62276622 Problem Social phobia F40.10 Active 096955 02 Problem Impaired circulation I99.9 Active 53950671 Problem Slow transit constipation K59.01 Acti ve 63814684 Problem Neuropathy G62.9 Active 807323208 Problem History of illicit drug use Z87.898 Ac tive 813603096 Problem Dysthymic disorder F34.1 Active 7 0327159 Problem Mood disorder F39 Active 922259 05 Problem Psychotic disorder F29 Active 6 8798201 Problem Hypertension, benign I10 Active 22428013 Problem Onychomycosis B35.1 Active 768452 008 ALLERGIES No Information ENCOUNTERS Encounter Location Date Diagnosis [facility] [address] [address] Aug, [place] [address] [address] Jul, [place] [address] [address] Jul, [place] [address] [address] May, Morbid obesity E66.01 [place] [address] [address] May, Encounter for immunization Z23 [place] [address] [address] May, Major depressive disorder, recurrent epi sode, moderate F33.1 ; Panic disorder without agoraphobia F41.0 and Morbid obesity E66.01 [place] [address] [address] May, Major depressive disorder in full remiss ion F32.5 and Panic disorder without agoraphobia F41.0 [place] [address] [address] Apr, Morbid obesity E66.01 [place] [address] [address] Apr, Slow transit constipation K59.01 and Lois lulitis of left lower extremity L03.116 [place] [address] [address] Apr, Morbid obesity E66.01 [place] [address] [address] Apr, [place] [address] [address] Apr, Major depressive disorder, recurrent epi sode, moderate F33.1 and Panic disorder without agoraphobia F41.0 [place] [address] [address] Mar, Viral upper respiratory tract infection J06.9 [place] [address] [address] 10 Mar, 2019 Bronchitis J40 and Encounter for immuniz ation Z23 [place] [address] [address] Mar, Morbid obesity E66.01 [place] [address] [address] Feb, Major depressive disorder, recurrent epi sode, moderate F33.1 and Panic disorder without agoraphobia F41.0 [place] [address] [address] Feb, Morbid obesity E66.01 [place] [address] [address] 06 Feb, 2019 Onychomycosis B35.1 ; Type 2 diabetes me llitus with diabetic neuropathic arthropathy E11.610 and Xerosis of skin L85.3 [place] [address] [address] 04 Feb, 2019 Major depressive disorder, recurrent epi sode, moderate F33.1 ; Panic disorder without agoraphobia F41.0 and Morbid obesity E66.01 [place] [address] [address] Jan, Major depressive disorder in full remiss ion F32.5 and Panic disorder without agoraphobia F41.0 [place] [address] [address] Jan, Pneumonia of both lower lobes due to inf ectious organism J18.1 and Morbid obesity E66.01 [place] [address] [address] Jan, [address] [address] Jan, Major depressive disorder in full remiss ion F32.5 and Panic disorder without agoraphobia F41.0 [place] [address] [address] Jan, [place] [address] [address] Jan, Major depressive disorder, recurrent epi sode, moderate F33.1 ; Panic disorder without agoraphobia F41.0 and Morbid obesity E66.01 [place] [address] [address] Dec, Bilious vomiting with nausea R11.14 ; Co ughing R05 and Choking, subsequent encounter T17.308D [place] [address] [address] Dec, Morbid obesity E66.01 [place] [address] [address] Dec, Major depressive disorder, recurrent epi sode, moderate F33.1 and Panic disorder without agoraphobia F41.0 [place] [address] [address] Dec, [place] [address] [address] Dec, Major depressive disorder, recurrent epi sode, moderate F33.1 [place] [address] [address] Nov, Major depressive disorder, recurrent epi sode, moderate F33.1 ; Panic disorder without agoraphobia F41.0 and Morbid obesity E66.01 [place] [address] [address] Nov, Morbid obesity E66.01 [place] [address] [address] Nov, Major depressive disorder, recurrent epi sode, moderate F33.1 and Panic disorder without agoraphobia F41.0 [facility] [address] [facility] [id number] [address] [place] [address] Nov, Allergic reaction, initial e ncounter T78.40XA and Morbid obesity E66.[address] [address] Nov, [place] [address] [address] Nov, Morbid obesity E66.01 ; Swallowing probl em R13.10 and Hypertension, benign I10 [facility] IN [place] [id number] [address] [place] [address] 07 Nov, 2018 Morbid obesity E66.01 ; COPD exacerbation J44.1 and Non- recurrent acute suppurative otitis media of left ear without spontaneous rupture of tympanic membrane H66.[address] [address] Nov, Onychomycosis B35.1 ; Neuropathy G62.9 a nd Fissure in skin of foot R23.[address] [address] October, Major depressive disorder, recurrent epi sode, moderate F33.1 ; Panic disorder without agoraphobia F41.0 and Morbid obesity E66.01 [facility] IN [place] [id number] [address] [place] [address] October, Viral upper respiratory trac t infection J06.9 [place] [address] [address] October, [address] [address] October, Major depressive disorder, recurrent epi sode, moderate F33.1 and Panic disorder without agoraphobia F41.0 [place] [address] [address] October, [place] [address] [address] October, [place] [id number] [place] [address] October, [facility] [address] [address] October, [facility] [address] [address] October, [facility] [address] [address] October, [facility] [address] [address] October, Major depressive disorder, recurrent epi sode, moderate F33.1 and Panic disorder without agoraphobia F41.0 [place] [address] [address] Sep, Morbid obesity E66.01 and Lumbar neuriti s M54.16 [place] [address] [address] Sep, Panic disorder without agoraphobia F41.0 and Major depressive disorder, recurrent episode, moderate F33.1 [facility] [address] [facility] [id number] [address] [place] [address] Sep, Gastroenteritis K52.9 ; Low back pain M54.5 ; Other chronic pain G89.29 and Morbid obesity E66.01 [facility] [address] [address] Sep, Major depressive disorder, recurrent epi sode, moderate F33.1 ; Panic disorder without agoraphobia F41.0 and Social phobia F40.10 [facility] [address] [address] Sep, Panic disorder without agoraphobia F41.0 [facility] [address] [address] Sep, Panic disorder without agoraphobia F41.0 [facility] [address] [address] Aug, Panic disorder without agoraphobia F41.0 ; Major depressive disorder, recurrent episode, moderate F33.1 ; Social phobia F40.10 ; Psychotic disorder F29 ; Tardive dyskinesia G24.01 and Morbid obesity E66.01 [place] [address] [address] Aug, Dysthymic disorder F34.1 and Psychotic d isorder F29 [place] [address] [address] Aug, Encounter for Medicare annual wellness e xam Z00.00 ; Morbid obesity E66.01 and 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 arthropathy E11.610 [place] [address] [address] Aug, Dysthymic disorder F34.1 and Psychotic d isorder F29 [place] [address] [address] Aug, Neuropathy G62.9 ; Onychomycosis B35.1 a nd Xerosis of skin L85.3 [place] [address] [address] Jul, [address] [address] Jul, Mood disorder F39 ; Wheezing R06.2 ; Diego sanchez, initial encounter T17.308A and Coughing R05 [place] [address] [address] Jul, Low back pain M54.5 [facility] [address] [facility] [id number] [address] [place] [address] Jun, Flu-like symptoms R68.89 ; B RI 45.0-49.9, adult Z68.42 ; COPD exacerbation J44.1 and Acute bronchitis J20.9 [place] [address] [address] Jun, [place] [address] [address] May, [place] [address] [address] May, Onychomycosis B35.1 and Type 2 diabetes mellitus with diabetic neuropathic arthropathy E11.610 [place] [address] [address] May, Low back pain M54.5 and Edema leg R60.0 [place] [address] [address] May, BMI 45.0-49.9, adult Z68.42 ; Well woman exam with routine gynecological exam Z01.419 and Breast cancer screening Z12.31 [place] [address] [address] 19 Apr, 2018 Arthritis M19.90 [place] [address] [address] 16 Apr, 2018 Arthritis M19.90 and Otalgia of both ear s H92.03 [place] [address] [address] Feb, [place] [address] [address] Feb, Low back pain M54.5 ; Other chronic pain G89.29 ; Exertional asthma J45.990 and Encounter for immunization Z23 [place] [address] [address] Feb, Skin fissures R23.4 ; Neuropathy G62.9 a nd Onychomycosis B35.1 [place] [address] [address] 05 Feb, 2018 Dysthymic disorder F34.1 [place] [address] [address] Feb, [place] [address] [address] Jan, [facility] [address] [address] Jan, Abrasion of right elbow, initial encount er S50.311A ; Abrasion, right knee, initial encounter S80.211A and Sprain of other ligament of right ankle, initial encounter S93.491A [facility] [address] [address] Jan, [facility] [address] [facility] [id number] [address] [place] [address] Jan, Injury of left ankle, initia l encounter S99.912A ; Fall down stairs, initial encounter W10.8XXA and BMI 45.0-49.9, adult Z68.42 [place] [address] [address] Jan, COPD exacerbation J44.1 [place] [address] [address] Jan, Dysfunction of both eustachian tubes H69 .83 [place] [address] [address] 08 Jan, 2018 Bronchitis J40 and Acute suppurative giovana tis media of left ear without spontaneous rupture of tympanic membrane, recurrence not specified H66.002 [facility] [address] [address] Jan, [place] [address] [address] Jan, Bronchitis J40 and BMI 40.0-44.9, adult Z68.41 [place] [address] [address] Jan, [place] [address] [address] Dec, Gastric pain R10.9 [place] [address] [address] Dec, [place] [address] [address] Dec, History of illicit drug use Z87.898 ; Ne uropathy G62.9 ; COPD (chronic obstructive pulmonary disease) with chronic bronchitis J44.9 and Acute pain of right knee M25.561 [place] [address] [address] Nov, [place] [address] [address] Nov, Onychomycosis B35.1 and Contusion of lef t foot, subsequent encounter S90.32XD [address] [address] Nov, COPD exacerbation J44.1 [place] [address] [address] Sep, [place] [address] [address] Sep, Dysthymic disorder F34.1 ; Tobacco abuse Z72.0 ; Pain in right knee M25.561 ; Pain in left knee M25.562 ; Other chronic pain G89.29 and BMI 40.0- 44.9, adult Z68.[address] [address] Aug, Major depressive disorder, recurrent epi sode, moderate F33.1 and Social phobia F40.[address] [address] Aug, Dysthymic disorder F34.1 ; Non-pressure chronic ulcer of left thigh, unspecified ulcer stage L97.129 ; Tobacco abuse Z72.0 ; Mild chronic obstructive pulmonary disease J44.9 and Forgetfulness R68.89 [place] [address] [address] 09 Aug, 2017 Onychomycosis B35.1 ; Fissure in skin of foot R23.4 and Foot callus L84 [facility] [address] [facility] [id number] [address], [place] [address] Jul, Right medial knee pain M25.5 61 ; Upper respiratory tract infection, unspecified type J06.9 and BMI 40.0-44.9, adult Z68.41 [facility] [address] [facility] [id number] [address] [address] 08 Jul, 2017 Nausea and vomiting, intract ability of vomiting not specified, unspecified vomiting type R11.2 ; Left ear pain H92.02 and Gastric pain R10.9 [place] [address] [address] Apr, Encounter for immunization Z23 [place] [address] [address] Apr, Onychomycosis B35.1 ; Xerosis of skin L8 5.3 ; Neuropathy G62.9 and 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 [place] [address] [address] Jan, Onychomycosis B35.1 and Neuropathy G62.9 [place] [address] [address] Dec, [place] [address] [address] Dec, [place] [address] [address] Nov, [place] [address] [address] Aug, [place] [address] [address] Aug, [place] [address] [address] Jul, [place] [address] [address] Jul, [place] [address] [address] 17 Jul, 2016 Decubitus ulcer of left thigh, stage 2 L 89.892 [facility] [address] [address] 17 Jul, 2016 Decubitus ulcer of left thigh, stage 2 L 89.892 [facility] [address] [address] 17 Jul, 2016 [facility] [address] [address] 15 Jul, 2016 Decubitus ulcer of left thigh, stage 2 L 89.892 [facility] [address] [address] 14 Jul, 2016 [facility] [address] [address] 13 Jul, 2016 Cellulitis of other specified site L03.8 18 ; Illicit drug use F19.90 and Decubitus ulcer of left thigh, stage 2 L89.892 [facility] [address] [address] 08 Jul, 2016 [place] [address] [address] 06 Jul, 2016 Cellulitis of right breast N61.0 [facility] [address] [address] Jun, [facility] [address] [address] Jun, [facility] [address] [address] Jun, Wheezing R06.2 and Arthralgia, unspecifi ed joint M25.50 [facility] [address] [address] May, [facility] [address] [address] May, [facility] [address] [address] May, [facility] [address] [address] 05 May, 2016 Shortness of breath R06.02 [facility] [address] [address] 02 May, 2016 Onychomycosis B35.1 and Fissure in skin of foot R23.4 [facility] [address] [address] 28 Apr, 2016 [facility] [address] [facility] [id number] [address] [place] [address] 18 Apr, 2016 Dizziness R42 [place] [address] [address] 14 Apr, 2016 Shortness of breath R06.02 ; Essential h ypertension I10 ; Dizziness R42 and On home oxygen therapy Z99.81 [facility] [address] [address] Apr, [place] [address] [address] 08 Apr, 2016 [facility] [address] [address] 07 Apr, 2016 [place] [address] [address] Apr, [facility] [address] [address] Apr, [facility] [address] [address] Apr, [facility] [address] [address] Apr, [facility] [address] [address] Mar, Mild chronic obstructive pulmonary disea se J44.9 [facility] [address] [address] Mar, [place] [address] [address] Mar, Epigastric pain R10.13 ; Low back pain M 54.5 ; Other chronic pain G89.29 and Breast cancer screening Z12.39 [place] [address] [address] Mar, [facility] [address] [address] Mar, [place] [address] [address] Feb, [place] [address] [address] Feb, [place] [address] [address] Feb, Fissure in skin of foot R23.4 and Onycho mycosis B35.1 [place] [address] [address] Jan, Agoraphobia F40.00 [place] [address] [address] Dec, Agoraphobia F40.00 [place] [address] [address] Dec, Mild persistent asthma without complicat ion J45.30 ; Dysthymic disorder F34.1 and Upper respiratory tract infection, unspecified type J06.9 [place] [address] [address] Nov, Agoraphobia F40.00 [place] [address] [address] October, Agoraphobia F40.00 [place] [address] [address] Sep, Panic disorder without agoraphobia F41.0 ; Agoraphobia F40.00 and Dysthymic disorder F34.1 [place] [address] [address] Sep, Panic attacks F41.0 [place] [address] [address] Sep, [place] [address] [address] Sep, Panic disorder without agoraphobia F41.0 ; Varicose veins of both lower extremities I83.93 and Fatigue R53.83 [place] [address] [address] Sep, Fatigue R53.83 [place] [address] [address] Sep, [place] [address] [address] Aug, [place] [address] [address] Aug, [place] [address] [address] Aug, Type 2 diabetes mellitus with diabetic n europathic arthropathy E11.610 [place] [address] [address] Aug, Panic disorder without agoraphobia F41.0 ; Agoraphobia F40.00 and Dysthymic disorder F34.1 [place] [address] [address] Aug, Shortness of breath R06.02 ; Panic attac ks F41.0 ; COPD (chronic obstructive pulmonary disease) J44.9 ; Tobacco abuse Z72.0 ; Family history of diabetes mellitus Z83.3 and Weight gain R63.5 [place] [address] [address] Aug, [place] [address] [address] Jul, [facility] [address] [address] Jun, Onychomycosis B35.1 ; Neuropathy G62.9 a nd Impaired circulation I99.9 [facility] [address] [address] Mar, Fissure in skin of foot R23.4 ; Onychomy cosis B35.1 and 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 [place] [address] [address] 18 Feb, 2015 Family history of coronary arteriosclero sis V17.3 [place] [address] [address] 15 Feb, 2015 Allergic rhinitis due to pollen 477.0 ; Unspecified breast screening V76.10 ; Anxiety 300.00 and Family history of coronary arteriosclerosis V17.3 [facility] [address] [address] Jan, [facility] [address] [address] Dec, [place] [address] [address] Dec, Onychomycosis 110.1 and Skin fissures 70 9.8 [facility] [address] [address] Sep, [facility] [address] [address] Sep, [facility] [address] [address] Aug, [facility] [address] [address] Aug, [facility] [address] [address] Jul, [facility] [address] [facility] [id number] [place] [address] Jul, [facility] [address] [id number] [place] [address] Jun, [facility] [address] [id number] [place] [address] Jun, [facility] [address] [id number] [place] [address] Jun, [facility] [address] [id number] [place] [address] Jun, [facility] [address] [id number] [place] [address] Jun, [facility] [address] [id number] [place] [address] May, [facility] [address] [id number] [place] [address] May, [facility] [address] [id number] [place] [address] May, [facility] [address] [id number] [place] [address] May, [facility] [address] [id number] [place] [address] May, [facility] [address] [id number] [place] [address] May, [facility] [address] [id number] [place] [address] May, [facility] [address] [id number] [place] [address] May, [facility] [address] [id number] [place] [address] Apr, [facility] [address] [id number] [place] [address] Apr, [facility] [address] [id number] [place] [address] Apr, [facility] [address] [id number] [place] [address] Apr, [facility] [address] [id number] [place] [address] Apr, [facility] [address] [id number] [place] [address] Apr, [facility] [address] [id number] [place] [address] Apr, [facility] [address] [id number] [place] [address] Apr, [facility] [address] [id number] [place] [address] Apr, [facility] [address] [id number] [place] [address] Apr, [facility] [address] [id number] [place] [address] Mar, [facility] [address] [id number] [place] [address] Mar, [facility] [address] [id number] [place] [address] Mar, [facility] [address] [id number] [place] [address] Mar, [facility] [address] [id number] [place] [address] Mar, [facility] [address] [id number] [place] [address] Mar, [facility] [id number] [place] [address] Mar, [facility] [address] [id number] [place] [address] Mar, [facility] [address] [id number] [place] [address] Mar, [facility] [address] [facility] [id number] [place] [address] 23 Mar, 2013 [facility] [address] [facility] [id number] [place] [address] 23 Mar, 2013 [facility] [address] [facility] [id number] [place] [address] Mar, 2013 [facility] [address] [id number] [place] [address] 22 Mar, 2014 [facility] [address] [facility] [id number] [place] [address] Mar, 2013 [facility] [address] [facility] [id number] [place] [address] 22 Mar, 2013 [facility] [address] [id number] [place] [address] 20 Mar, 2013 [facility] [address] [id number] [place] [address] 20 Mar, 2013 [facility] [place] [facility] [address] [id number] [place] [address] 16 Mar, 2013 [facility] [place] [facility] [address] [id number] [place] [address] 16 Mar, 2013 [facility] [place] [facility] [address] [id number] [place] [address] 15 Mar, 2013 [facility] [place] [facility] [address] [id number] [place] [address] 14 Mar, 2013 [facility] [place] [facility] [address] [id number] [place] [address] 14 Mar, 2013 [facility] [place] [facility] [address] [facility] [id number] [place] [address] 14 Mar, 2013 [facility] [place] [facility] [address] [id number] [place] [address] 14 Mar, 2013 [facility] [place] [facility] [address] [id number] [place] [address] 09 Mar, 2013 [facility] [place] [facility] [address] [id number] [place] [address] Mar, 2013 [facility] [place] [facility] [address] [facility] [id number] [place] [address] Mar, 2013 [facility] [place] [facility] [address] [facility] [id number] [place] [address] Mar, 2013 [facility] [place] [facility] [address] [id number] [place] [address] Feb, 2013 [facility] [place] [facility] [address] [id number] [place] [address] Feb, 2013 [facility] [place] [facility] [address] [facility] [id number] [place] [address] Feb, 2013 [facility] [place] [facility] [address] [id number] [place] [address] Feb, 2013 [facility] [place] [facility] [address] [id number] [place] [address] Feb, 2013 [facility] [place] [facility] [address] [id number] [place] [address] Feb, 2013 [facility] [place] [facility] [address] [id number] [place] [address] Feb, 2013 [facility] [place] [facility] [address] [id number] [place] [address] Feb, 2013 [facility] [place] [facility] [address] [id number] [place] [address] Feb, 2013 [facility] [place] [facility] [address] [id number] [place] [address] Feb, 2013 [facility] [place] [facility] [address] [id number] [place] [address] Feb, 2013 [facility] [place] [facility] [address] [id number] [place] [address] Feb, 2013 [facility] [place] [facility] [address] [id number] [place] [address] Jan, [facility] [place] [facility] [address] [id number] [place] [address] Jan, [facility] [place] [facility] [address] [id number] [place] [address] Jan, [facility] [place] [facility] [address] [id number] [facility] [place] [address] Jan, [facility] [place] [facility] [address] [facility] [id number] [place] [address] Jan, [facility] [place] [facility] [address] [id number] [place] [address] Jan, [facility] [place] [facility] [address] [id number] [place] [address] Jan, [facility] [place] [facility] [address] [id number] [place] [address] Jan, [facility] [place] [facility] [address] [id number] [place] [address] Jan, [facility] [place] [facility] [address] [id number] [place] [address] Jan, [facility] [place] [facility] [address] [id number] [place] [address] Jan, [facility] [place] [facility] [address] [id number] [place] [address] Jan, [facility] [place] [facility] [address] [id number] [place] [address] Jan, [facility] [place] [facility] [address] [id number] [place] [address] Dec, [facility] [place] [facility] [address] [id number] [place] [address] Dec, [facility] [place] [facility] [address] [id number] [place] [address] Dec, [facility] [place] [facility] [address] [id number] [place] [address] Dec, [facility] [place] [facility] [address] [id number] [place] [address] Dec, [facility] [place] [facility] [address] [id number] [place] [address] Dec, [facility] [place] [facility] [address] [id number] [place] [address] Dec, 2013 [facility] [place] [facility] [address] [facility] [id number] [place] [address] Dec, 2013 [facility] [place] [facility] [address] [facility] [id number] [place] [address] Dec, 2013 [facility] [place] [facility] [address] [id number] [place] [address] Dec, 2013 [facility] [place] [facility] [address] [facility] [id number] [place] [address] Dec, 2013 [facility] [place] [facility] [address] [facility] [id number] [place] [address] Dec, 2013 [facility] [place] [facility] [address] [id number] [place] [address] Dec, 2013 [facility] [place] [facility] [address] [id number] [place] [address] Dec, 2013 [facility] [place] [facility] [address] [id number] [place] [address] Dec, 2013 [facility] [place] [facility] [address] [id number] [place] [address] Dec, 2013 [facility] [place] [facility] [address] [id number] [place] [address] Dec, [facility] [place] [facility] [address] [id number] [place] [address] Dec, 2013 [facility] [place] [facility] [address] [id number] [place] [address] Nov, [facility] [place] [facility] [address] [facility] [id number] [place] [address] Nov, [facility] [place] [facility] [address] [id number] [place] [address] Nov, [facility] [place] [facility] [address] [id number] [place] [address] Nov, [facility] [place] [facility] [address] [id number] [place] [address] Nov, [facility] [place] [facility] [address] [facility] [id number] [place] [address] Nov, [facility] [place] [facility] [address] [facility] [id number] [facility] [place] [address] Nov, [facility] [place] [facility] [address] [facility] [id number] [place] [address] Nov, [facility] [place] [facility] [address] [facility] [id number] [facility] [place] [address] Nov, [facility] [place] [facility] [address] [facility] [id number] [facility] [place] [address] Nov, [facility] [place] [facility] [address] [facility] [id number] [place] [address] Nov, [facility] [place] [facility] [address] [id number] [place] [address] Nov, [facility] [place] [facility] [address] [id number] [place] [address] Nov, [facility] [place] [facility] [address] [facility] [id number] [place] [address] Nov, [facility] [place] [facility] [address] [id number] [place] [address] Nov, [facility] [place] [facility] [address] [id number] [place] [address] Nov, [facility] [place] [facility] [address] [id number] [place] [address] Nov, [facility] [place] [facility] [address] [facility] [id number] [place] [address] Nov, [facility] [place] [facility] [address] [facility] [id number] [place] [address] Nov, [facility] [place] [facility] [address] [facility] [id number] [place] [address] Nov, [facility] [place] [facility] [address] [id number] [place] [address] October, [facility] [place] [facility] [address] [id number] [place] [address] October, [facility] [place] [facility] [address] [id number] [place] [address] October, [facility] [place] [facility] [address] [id number] [place] [address] October, [facility] [place] [facility] [address] [id number] [place] [address] Sep, [facility] [place] [facility] [address] [id number] [place] [address] Sep, [facility] [place] [facility] [address] [id number] [place] [address] Sep, [facility] [place] [facility] [address] [id number] [place] [address] Sep, [facility] [place] [facility] [address] [id number] [place] [address] Sep, [facility] [place] [facility] [address] [id number] [place] [address] Sep, [facility] [place] [facility] [address] [id number] [place] [address] Sep, [facility] [place] [facility] [address] [id number] [place] [address] Sep, [facility] [place] [facility] [address] [id number] [place] [address] Sep, [facility] [place] [facility] [address] [id number] [place] [address] Aug, [facility] [place] [facility] [address] [id number] [place] [address] Aug, [facility] [place] [facility] [address] [id number] [place] [address] Aug, [facility] [place] [facility] [address] [id number] [place] [address] Aug, [facility] [place] [facility] [address] [id number] [place] [address] Aug, [facility] [place] [facility] [address] [id number] [place] [address] Aug, [facility] [place] [facility] [address] [id number] [place] [address] Aug, [facility] [place] [facility] [address] [id number] [place] [address] Aug, [facility] [place] [facility] [address] [id number] [place] [address] Jul, [facility] [place] [facility] [address] [id number] [place] [address] Jul, [facility] [place] [facility] [address] [id number] [place] [address] Jun, [facility] [place] [facility] [address] [id number] [place] [address] Jun, [facility] [place] [facility] [address] [id number] [place] [address] Jun, [facility] [place] [facility] [address] [id number] [place] [address] Jun, [facility] [place] [facility] [address] [id number] [place] [address] Jun, [facility] [place] [facility] [address] [id number] [place] [address] Jun, [facility] [place] [facility] [address] [id number] [place] [address] Jun, [facility] [place] [facility] [address] [id number] [place] [address] Jun, [facility] [place] [facility] [address] [id number] [place] [address] Jun, [facility] [place] [facility] [address] [id number] [place] [address] Jun, [facility] [place] [facility] [address] [id number] [place] [address] Jun, [facility] [place] [facility] [address] [id number] [place] [address] Jun, [facility] [place] [facility] [address] [id number] [place] [address] May, [facility] [place] [facility] [address] [id number] [place] [address] May, [facility] [place] [facility] [address] [id number] [place] [address] May, [facility] [place] [facility] [address] [id number] [place] [address] May, [facility] [place] [facility] [address] [id number] [place] [address] May, [facility] [place] [facility] [address] [id number] [place] [address] May, [facility] [place] [facility] [address] [id number] [place] [address] May, [facility] [place] [facility] [address] [id number] [place] [address] May, [facility] [place] [facility] [address] [id number] [place] [address] May, [facility] [place] [facility] [address] [id number] [place] [address] May, [facility] [place] [facility] [address] [id number] [place] [address] May, [facility] [place] [facility] [address] [id number] [place] [address] May, [facility] [place] [facility] [address] [id number] [place] [address] May, [facility] [place] [facility] [address] [id number] [place] [address] Apr, [facility] [place] [facility] [address] [id number] [place] [address] Apr, [facility] [place] [facility] [address] [id number] [place] [address] Mar, [facility] [place] [facility] [address] [id number] [place] [address] Mar, [facility] [place] [facility] [address] [id number] [place] [address] Feb, [facility] [place] [facility] [address] [id number] [place] [address] Feb, [facility] [place] [facility] [address] [id number] [place] [address] Feb, [facility] [place] [facility] [address] [id number] [place] [address] Feb, [facility] [place] [facility] [address] [id number] [place] [address] Jan, [facility] [place] [facility] [address] [id number] [place] [address] Jan, [facility] [place] [facility] [address] [id number] [place] [address] Jan, [facility] [place] [facility] [address] [id number] [place] [address] Jan, [facility] [place] [facility] [address] [id number] [place] [address] Jan, [facility] [place] [facility] [address] [id number] [place] [address] Jan, [facility] [place] [facility] [address] [id number] [place] [address] Dec, [facility] [place] [facility] [address] [id number] [place] [address] Dec, [facility] [place] [facility] [address] [id number] [place] [address] Dec, [facility] [place] [facility] [address] [id number] [place] [address] Dec, [facility] [place] [facility] [address] [id number] [place] [address] Nov, [facility] [place] [facility] [address] [id number] [place] [address] October, [facility] [place] [facility] [address] [id number] [place] [address] October, [facility] [place] [facility] [address] [id number] [place] [address] October, [facility] [place] [facility] [address] [id number] [place] [address] Sep, [facility] [place] [facility] [address] [id number] [place] [address] Sep, [facility] [place] [facility] [address] [id number] [place] [address] Jun, [facility] [place] [facility] [address] [id number] [place] [address] Jun, [facility] [place] [facility] [address] [id number] [place] [address] Jun, [facility] [place] [facility] [id number] [place] [address] Apr, [facility] [place] [facility] [address] [id number] [place] [address] Apr, [facility] [place] [facility] [address] [id number] [place] [address] Apr, [facility] [place] [facility] [address] [id number] [place] [address] Apr, [facility] [place] [facility] [address] [id number] [place] [address] Mar, [facility] [place] [facility] [address] [id number] [place] [address] Mar, [facility] [place] [facility] [address] [id number] [place] [address] Mar, [facility] [place] [facility] [address] [id number] [place] [address] Mar, [facility] [place] [facility] [address] [id number] [place] [address] Feb, [facility] [place] [facility] [address] [id number] [place] [address] 27 Feb, 2012 [facility] [place] [facility] [address] [id number] [place] [address] Feb, [facility] [place] [facility] [address] [id number] [place] [address] Jan, [facility] [place] [facility] [address] [id number] [place] [address] Jan, [facility] [place] [facility] [address] [id number] [place] [address] Jan, [facility] [place] [facility] [address] [id number] [place] [address] Jan, [facility] [place] [facility] [address] [id number] [place] [address] Dec, [facility] [place] [facility] [address] [id number] [place] [address] Dec, [facility] [place] [facility] [address] [id number] [place] [address] Nov, [facility] [place] [facility] [address] [id number] [place] [address] Nov, [facility] [place] [facility] [address] [id number] [place] [address] October, [facility] [place] [facility] [address] [id number] [place] [address] October, [facility] [place] [facility] [address] [id number] [place] [address] October, [facility] [place] [facility] [address] [id number] [place] [address] Sep, [facility] [place] [facility] [address] [id number] [place] [address] Sep, [facility] [place] [facility] [address] [id number] [place] [address] Sep, [facility] [place] [facility] [address] [id number] [place] [address] Aug, [facility] [place] [facility] [address] [id number] [place] [address] 26 Aug, 2011 [facility] [place] [facility] [address] [id number] [place] [address] 15 Aug, 2011 [facility] [place] [facility] [address] [id number] [place] [address] 15 Aug, 2011 [facility] [place] [facility] [address] [id number] [place] [address] Aug, [facility] [place] [facility] [address] [id number] [place] [address] 23 Jul, 2011 [facility] [place] [facility] [address] [id number] [place] [address] 16 Jul, 2011 [facility] [place] [facility] [address] [id number] [place] [address] 13 Jul, 2011 [facility] [place] [facility] [address] [id number] [place] [address] Jul, [facility] [place] [facility] [address] [id number] [place] [address] Jul, [facility] [place] [facility] [address] [id number] [place] [address] Jul, [facility] [place] [facility] [address] [id number] [place] [address] Jul, [facility] [place] [facility] [address] [id number] [place] [address] Jul, [facility] [place] [facility] [address] [id number] [place] [address] Jun, [facility] [place] [facility] [address] [id number] [place] [address] Jun, [facility] [place] [facility] [address] [id number] [place] [address] May, [facility] [address] [facility] [id number] [place] [address] May, [facility] [address] [id number] [place] [address] 08 May, 2011 [facility] [id number] [place] [address] 08 May, 2011 [facility] [address] [id number] [place] [address] Apr, [facility] [address] [facility] [address] [id number] [place] [address] Apr, [facility] [address] [facility] [id number] [place] [address] Apr, [facility] [address] [facility] [address] [id number] [place] [address] Mar, [facility] [address] [facility] [address] [id number] [place] [address] Mar, [facility] [address] [facility] [address] [id number] [place] [address] Mar, [facility] [address] [id number] [place] [address] Mar, [facility] [address] [facility] [id number] [place] [address] Dec, [facility] [address] [id number] [place] [address] October, [facility] [address] [facility] [id number] [place] [address] May, [facility] [address] [id number] [place] [address] May, [facility] [address] [facility] [address] [id number] [place] [address] May, [facility] [address] [id number] [place] [address] May, [facility] [address] [facility] [id number] [place] [address] Mar, [facility] [address] [id number] [place] [address] Mar, [facility] [address] [id number] [place] [address] May, [facility] [id number] [place] [address] May, [facility] [id number] [place] [address] May, [facility] [address] [id number] [place] [address] May, [facility] [address] [facility] [address] [id number] [place] [address] Apr, [facility] [id number] [place] [address] Apr, [facility] [address] [id number] [place] [address] October, IMMUNIZATIONS No Known Immunizations SOCIAL HISTORY [...]
--- OUTSIDE RECORDS SUMMARY | 2020-01-13 12:17 | XMS REPORT ---
Author Author Monique RAHMAN Organization [facility] Address [address] [place] [address] Care Team Providers Care Light Bulb Replacer Name Role Phone RASHEED RAHMAN Unavailable PROBLEMS Type Condition ICD9-CM Code PCR20-BB Code Onset Dates Condition S tatus SNOMED Code Problem Panic disorder without agoraphobia F41.0 Active 77539631 Problem Agoraphobia F40.00 Active 50468989 Problem Fatigue R53.83 Active 56586466 Problem Varicose veins of both lower extremities I83.93 Active 58780264 Problem Mild chronic obstructive pulmonary disease J44.9 Active 224534663 Problem Mild persistent asthma without complication J45.30 Active 475165720 Problem Essential hypertension I10 Active 81286167 Problem Snoring R06.83 Active 60278262 Problem On home oxygen therapy Z99.81 Active 752919797177 Problem MRSA (methicillin resistant staph aureus) culture positive Z22.322 Active 511105316 Problem Major depressive disorder, recurrent episode, moderate F33.1 Active 727774348 Problem 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 Active 114706128 Problem Arthritis M19.90 Active 8671157 Problem Major depressive disorder in full remission F32.5 Active 68756199 Problem Social phobia F40.10 Active 256180 02 Problem Impaired circulation I99.9 Active 38778639 Problem Slow transit constipation K59.01 Acti ve 71994303 Problem Neuropathy G62.9 Active 383884280 Problem History of illicit drug use Z87.898 Ac tive 345717326 Problem Dysthymic disorder F34.1 Active 7 9253765 Problem Mood disorder F39 Active 907470 05 Problem Psychotic disorder F29 Active 6 0624468 Problem Hypertension, benign I10 Active 38361447 Problem Onychomycosis B35.1 Active 569155 008 ALLERGIES No Information ENCOUNTERS Encounter Location Date Diagnosis [facility] [address] [address] Aug, [place] [address] [address] Jul, [place] [address] [address] Jul, [place] [address] [address] May, Morbid obesity E66.01 [place] [address] [address] May, Encounter for immunization Z23 [place] [address] [address] May, Major depressive disorder, recurrent epi sode, moderate F33.1 ; Panic disorder without agoraphobia F41.0 and Morbid obesity E66.01 [place] [address] [address] May, Major depressive disorder in full remiss ion F32.5 and Panic disorder without agoraphobia F41.0 [place] [address] [address] Apr, Morbid obesity E66.01 [place] [address] [address] Apr, Slow transit constipation K59.01 and Lois lulitis of left lower extremity L03.116 [place] [address] [address] Apr, Morbid obesity E66.01 [place] [address] [address] Apr, [place] [address] [address] Apr, Major depressive disorder, recurrent epi sode, moderate F33.1 and Panic disorder without agoraphobia F41.0 [place] [address] [address] Mar, Viral upper respiratory tract infection J06.9 [place] [address] [address] 10 Mar, 2019 Bronchitis J40 and Encounter for immuniz ation Z23 [place] [address] [address] Mar, Morbid obesity E66.01 [place] [address] [address] Feb, Major depressive disorder, recurrent epi sode, moderate F33.1 and Panic disorder without agoraphobia F41.0 [place] [address] [address] Feb, Morbid obesity E66.01 [place] [address] [address] 06 Feb, 2019 Onychomycosis B35.1 ; Type 2 diabetes me llitus with diabetic neuropathic arthropathy E11.610 and Xerosis of skin L85.3 [place] [address] [address] 04 Feb, 2019 Major depressive disorder, recurrent epi sode, moderate F33.1 ; Panic disorder without agoraphobia F41.0 and Morbid obesity E66.01 [place] [address] [address] Jan, Major depressive disorder in full remiss ion F32.5 and Panic disorder without agoraphobia F41.0 [place] [address] [address] Jan, Pneumonia of both lower lobes due to inf ectious organism J18.1 and Morbid obesity E66.01 [place] [address] [address] Jan, [address] [address] Jan, Major depressive disorder in full remiss ion F32.5 and Panic disorder without agoraphobia F41.0 [place] [address] [address] Jan, [place] [address] [address] Jan, Major depressive disorder, recurrent epi sode, moderate F33.1 ; Panic disorder without agoraphobia F41.0 and Morbid obesity E66.01 [place] [address] [address] Dec, Bilious vomiting with nausea R11.14 ; Co ughing R05 and Choking, subsequent encounter T17.308D [place] [address] [address] Dec, Morbid obesity E66.01 [place] [address] [address] Dec, Major depressive disorder, recurrent epi sode, moderate F33.1 and Panic disorder without agoraphobia F41.0 [place] [address] [address] Dec, [place] [address] [address] Dec, Major depressive disorder, recurrent epi sode, moderate F33.1 [place] [address] [address] Nov, Major depressive disorder, recurrent epi sode, moderate F33.1 ; Panic disorder without agoraphobia F41.0 and Morbid obesity E66.01 [place] [address] [address] Nov, Morbid obesity E66.01 [place] [address] [address] Nov, Major depressive disorder, recurrent epi sode, moderate F33.1 and Panic disorder without agoraphobia F41.0 [facility] [address] [facility] [id number] [address] [place] [address] Nov, Allergic reaction, initial e ncounter T78.40XA and Morbid obesity E66.[address] [address] Nov, [place] [address] [address] Nov, Morbid obesity E66.01 ; Swallowing probl em R13.10 and Hypertension, benign I10 [facility] [place] [id number] [address] [place] [address] 07 Nov, 2018 Morbid obesity E66.01 ; COPD exacerbation J44.1 and Non- recurrent acute suppurative otitis media of left ear without spontaneous rupture of tympanic membrane H66.[address] [address] Nov, Onychomycosis B35.1 ; Neuropathy G62.9 a nd Fissure in skin of foot R23.[address] [address] October, Major depressive disorder, recurrent epi sode, moderate F33.1 ; Panic disorder without agoraphobia F41.0 and Morbid obesity E66.01 [facility] [place] [id number] [address] [place] [address] October, Viral upper respiratory trac t infection J06.9 [place] [address] [address] October, [address] [address] October, Major depressive disorder, recurrent epi sode, moderate F33.1 and Panic disorder without agoraphobia F41.0 [place] [address] [address] October, [place] [address] [address] October, [place] [id number] [place] [address] October, [facility] [address] [address] October, [facility] [address] [address] October, [facility] [address] [address] October, [facility] [address] [address] October, Major depressive disorder, recurrent epi sode, moderate F33.1 and Panic disorder without agoraphobia F41.0 [place] [address] [address] Sep, Morbid obesity E66.01 and Lumbar neuriti s M54.16 [place] [address] [address] Sep, Panic disorder without agoraphobia F41.0 and Major depressive disorder, recurrent episode, moderate F33.1 [facility] [address] [facility] [id number] [address] [place] [address] Sep, Gastroenteritis K52.9 ; Low back pain M54.5 ; Other chronic pain G89.29 and Morbid obesity E66.01 [facility] [address] [address] Sep, Major depressive disorder, recurrent epi sode, moderate F33.1 ; Panic disorder without agoraphobia F41.0 and Social phobia F40.10 [facility] [address] [address] Sep, Panic disorder without agoraphobia F41.0 [facility] [address] [address] Sep, Panic disorder without agoraphobia F41.0 [facility] [address] [address] Aug, Panic disorder without agoraphobia F41.0 ; Major depressive disorder, recurrent episode, moderate F33.1 ; Social phobia F40.10 ; Psychotic disorder F29 ; Tardive dyskinesia G24.01 and Morbid obesity E66.01 [place] [address] [address] Aug, Dysthymic disorder F34.1 and Psychotic d isorder F29 [place] [address] [address] Aug, Encounter for Medicare annual wellness e xam Z00.00 ; Morbid obesity E66.01 and 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.610 [place] [address] [address] Aug, Dysthymic disorder F34.1 and Psychotic d isorder F29 [place] [address] [address] Aug, Neuropathy G62.9 ; Onychomycosis B35.1 a nd Xerosis of skin L85.3 [place] [address] [address] Jul, [address] [address] Jul, Mood disorder F39 ; Wheezing R06.2 ; Diego sanchez, initial encounter T17.308A and Coughing R05 [place] [address] [address] Jul, Low back pain M54.5 [facility] [address] [facility] [id number] [address] [place] [address] Jun, Flu-like symptoms R68.89 ; B AR 45.0-49.9, adult Z68.42 ; COPD exacerbation J44.1 and Acute bronchitis J20.9 [place] [address] [address] Jun, [place] [address] [address] May, [place] [address] [address] May, Onychomycosis B35.1 and Type 2 diabetes mellitus with diabetic neuropathic arthropathy E11.610 [place] [address] [address] May, Low back pain M54.5 and Edema leg R60.0 [place] [address] [address] May, BMI 45.0-49.9, adult Z68.42 ; Well woman exam with routine gynecological exam Z01.419 and Breast cancer screening Z12.31 [place] [address] [address] 19 Apr, 2018 Arthritis M19.90 [place] [address] [address] 16 Apr, 2018 Arthritis M19.90 and Otalgia of both ear s H92.03 [place] [address] [address] Feb, [place] [address] [address] Feb, Low back pain M54.5 ; Other chronic pain G89.29 ; Exertional asthma J45.990 and Encounter for immunization Z23 [place] [address] [address] Feb, Skin fissures R23.4 ; Neuropathy G62.9 a nd Onychomycosis B35.1 [place] [address] [address] 05 Feb, 2018 Dysthymic disorder F34.1 [place] [address] [address] Feb, [place] [address] [address] Jan, [facility] [address] [address] Jan, Abrasion of right elbow, initial encount er S50.311A ; Abrasion, right knee, initial encounter S80.211A and Sprain of other ligament of right ankle, initial encounter S93.491A [facility] [address] [address] Jan, [facility] [address] [facility] [id number] [address] [place] [address] Jan, Injury of left ankle, initia l encounter S99.912A ; Fall down stairs, initial encounter W10.8XXA and BMI 45.0-49.9, adult Z68.42 [place] [address] [address] Jan, COPD exacerbation J44.1 [place] [address] [address] Jan, Dysfunction of both eustachian tubes H69 .83 [place] [address] [address] 08 Jan, 2018 Bronchitis J40 and Acute suppurative giovana tis media of left ear without spontaneous rupture of tympanic membrane, recurrence not specified H66.002 [facility] [address] [address] Jan, [place] [address] [address] Jan, Bronchitis J40 and BMI 40.0-44.9, adult Z68.41 [place] [address] [address] Jan, [place] [address] [address] Dec, Gastric pain R10.9 [place] [address] [address] Dec, [place] [address] [address] Dec, History of illicit drug use Z87.898 ; Ne uropathy G62.9 ; COPD (chronic obstructive pulmonary disease) with chronic bronchitis J44.9 and Acute pain of right knee M25.561 [place] [address] [address] Nov, [place] [address] [address] Nov, Onychomycosis B35.1 and Contusion of lef t foot, subsequent encounter S90.32XD [address] [address] Nov, COPD exacerbation J44.1 [place] [address] [address] Sep, [place] [address] [address] Sep, Dysthymic disorder F34.1 ; Tobacco abuse Z72.0 ; Pain in right knee M25.561 ; Pain in left knee M25.562 ; Other chronic pain G89.29 and BMI 40.0- 44.9, adult Z68.[address] [address] Aug, Major depressive disorder, recurrent epi sode, moderate F33.1 and Social phobia F40.[address] [address] Aug, Dysthymic disorder F34.1 ; Non-pressure chronic ulcer of left thigh, unspecified ulcer stage L97.129 ; Tobacco abuse Z72.0 ; Mild chronic obstructive pulmonary disease J44.9 and Forgetfulness R68.89 [place] [address] [address] 09 Aug, 2017 Onychomycosis B35.1 ; Fissure in skin of foot R23.4 and Foot callus L84 [facility] [address] [facility] [id number] [place] [address] Jul, Right medial knee pain M25.5 61 ; Upper respiratory tract infection, unspecified type J06.9 and BMI 40.0-44.9, adult Z68.41 [facility] [address] [facility] [id number] [place] [address] 08 Jul, 2017 Nausea and vomiting, intract ability of vomiting not specified, unspecified vomiting type R11.2 ; Left ear pain H92.02 and Gastric pain R10.9 [place] [address] [address] Apr, Encounter for immunization Z23 [place] [address] [address] Apr, Onychomycosis B35.1 ; Xerosis of skin L8 5.3 ; Neuropathy G62.9 and 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 [place] [address] [address] Jan, Onychomycosis B35.1 and Neuropathy G62.9 [place] [address] [address] Dec, [place] [address] [address] Dec, [place] [address] [address] Nov, [place] [address] [address] Aug, [place] [address] [address] Aug, [place] [address] [address] Jul, [place] [address] [address] Jul, [place] [address] [address] 17 Jul, 2016 Decubitus ulcer of left thigh, stage 2 L 89.892 [facility] [address] [address] 17 Jul, 2016 Decubitus ulcer of left thigh, stage 2 L 89.892 [facility] [address] [address] 17 Jul, 2016 [facility] [address] [address] 15 Jul, 2016 Decubitus ulcer of left thigh, stage 2 L 89.892 [facility] [address] [address] 14 Jul, 2016 [facility] [address] [address] 13 Jul, 2016 Cellulitis of other specified site L03.8 18 ; Illicit drug use F19.90 and Decubitus ulcer of left thigh, stage 2 L89.892 [facility] [address] [address] 08 Jul, 2016 [place] [address] [address] 06 Jul, 2016 Cellulitis of right breast N61.0 [facility] [address] [address] Jun, [facility] [address] [address] Jun, [facility] [address] [address] Jun, Wheezing R06.2 and Arthralgia, unspecifi ed joint M25.50 [facility] [address] [address] May, [facility] [address] [address] May, [facility] [address] [address] May, [facility] [address] [address] 05 May, 2016 Shortness of breath R06.02 [facility] [address] [address] 02 May, 2016 Onychomycosis B35.1 and Fissure in skin of foot R23.4 [facility] [address] [address] 28 Apr, 2016 [facility] [address] [facility] [id number] [address] [place] [address] 18 Apr, 2016 Dizziness R42 [place] [address] [address] 14 Apr, 2016 Shortness of breath R06.02 ; Essential h ypertension I10 ; Dizziness R42 and On home oxygen therapy Z99.81 [facility] [address] [address] Apr, [place] [address] [address] 08 Apr, 2016 [facility] [address] [address] 07 Apr, 2016 [place] [address] [address] Apr, [facility] [address] [address] Apr, [facility] [address] [address] Apr, [facility] [address] [address] Apr, [facility] [address] [address] Mar, Mild chronic obstructive pulmonary disea se J44.9 [facility] [address] [address] Mar, [place] [address] [address] Mar, Epigastric pain R10.13 ; Low back pain M 54.5 ; Other chronic pain G89.29 and Breast cancer screening Z12.39 [place] [address] [address] Mar, [facility] [address] [address] Mar, [place] [address] [address] Feb, [place] [address] [address] Feb, [place] [address] [address] Feb, Fissure in skin of foot R23.4 and Onycho mycosis B35.1 [place] [address] [address] Jan, Agoraphobia F40.00 [place] [address] [address] Dec, Agoraphobia F40.00 [place] [address] [address] Dec, Mild persistent asthma without complicat ion J45.30 ; Dysthymic disorder F34.1 and Upper respiratory tract infection, unspecified type J06.9 [place] [address] [address] Nov, Agoraphobia F40.00 [place] [address] [address] October, Agoraphobia F40.00 [place] [address] [address] Sep, Panic disorder without agoraphobia F41.0 ; Agoraphobia F40.00 and Dysthymic disorder F34.1 [place] [address] [address] Sep, Panic attacks F41.0 [place] [address] [address] Sep, [place] [address] [address] Sep, Panic disorder without agoraphobia F41.0 ; Varicose veins of both lower extremities I83.93 and Fatigue R53.83 [place] [address] [address] Sep, Fatigue R53.83 [place] [address] [address] Sep, [place] [address] [address] Aug, [place] [address] [address] Aug, [place] [address] [address] Aug, Type 2 diabetes mellitus with diabetic n europathic arthropathy E11.610 [place] [address] [address] Aug, Panic disorder without agoraphobia F41.0 ; Agoraphobia F40.00 and Dysthymic disorder F34.1 [place] [address] [address] Aug, Shortness of breath R06.02 ; Panic attac ks F41.0 ; COPD (chronic obstructive pulmonary disease) J44.9 ; Tobacco abuse Z72.0 ; Family history of diabetes mellitus Z83.3 and Weight gain R63.5 [place] [address] [address] Aug, [place] [address] [address] Jul, [facility] [address] [address] Jun, Onychomycosis B35.1 ; Neuropathy G62.9 a nd Impaired circulation I99.9 [facility] [address] [address] Mar, Fissure in skin of foot R23.4 ; Onychomy cosis B35.1 and 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 [place] [address] [address] 18 Feb, 2015 Family history of coronary arteriosclero sis V17.3 [place] [address] [address] 15 Feb, 2015 Allergic rhinitis due to pollen 477.0 ; Unspecified breast screening V76.10 ; Anxiety 300.00 and Family history of coronary arteriosclerosis V17.3 [facility] [address] [address] Jan, [facility] [address] [address] Dec, [place] [address] [address] Dec, Onychomycosis 110.1 and Skin fissures 70 9.8 [facility] [address] [address] Sep, [facility] [address] [address] Sep, [facility] [address] [address] Aug, [facility] [address] [address] Aug, [facility] [address] [address] Jul, [facility] [address] [facility] [id number] [place] [address] Jul, [facility] [address] [id number] [place] [address] Jun, [facility] [address] [id number] [place] [address] Jun, [facility] [address] [id number] [place] [address] Jun, [facility] [address] [id number] [place] [address] Jun, [facility] [address] [id number] [place] [address] Jun, [facility] [address] [id number] [place] [address] May, [facility] [address] [id number] [place] [address] May, [facility] [address] [id number] [place] [address] May, [facility] [address] [id number] [place] [address] May, [facility] [address] [id number] [place] [address] May, [facility] [address] [id number] [place] [address] May, [facility] [address] [id number] [place] [address] May, [facility] [address] [id number] [place] [address] May, [facility] [address] [id number] [place] [address] Apr, [facility] [address] [id number] [place] [address] Apr, [facility] [address] [id number] [place] [address] Apr, [facility] [address] [id number] [place] [address] Apr, [facility] [address] [id number] [place] [address] Apr, [facility] [address] [id number] [place] [address] Apr, [facility] [address] [id number] [place] [address] Apr, [facility] [address] [id number] [place] [address] Apr, [facility] [address] [id number] [place] [address] Apr, [facility] [address] [id number] [place] [address] Apr, [facility] [address] [id number] [place] [address] Mar, [facility] [address] [id number] [place] [address] Mar, [facility] [address] [id number] [place] [address] Mar, [facility] [address] [id number] [place] [address] Mar, [facility] [address] [id number] [place] [address] Mar, [facility] [address] [id number] [place] [address] Mar, [facility] [id number] [place] [address] Mar, [facility] [address] [id number] [place] [address] Mar, [facility] [address] [id number] [place] [address] Mar, [facility] [address] [facility] [facility] [id number] [place] [address] 23 Mar, 2013 [facility] [place] [facility] [address] [facility] [id number] [place] [address] 23 Mar, 2013 [facility] [place] [facility] [address] [facility] [id number] [place] [address] Mar, 2013 [facility] [place] [facility] [address] [id number] [place] [address] 22 Mar, 2014 [facility] [place] [facility] [address] [facility] [id number] [place] [address] Mar, 2013 [facility] [place] [facility] [address] [facility] [id number] [place] [address] 22 Mar, 2013 [facility] [place] [facility] [address] [id number] [place] [address] 20 Mar, 2013 [facility] [place] [facility] [address] [id number] [place] [address] 20 Mar, 2013 [facility] [place] [facility] [address] [id number] [place] [address] 16 Mar, 2013 [facility] [place] [facility] [address] [id number] [place] [address] 16 Mar, 2013 [facility] [place] [facility] [address] [id number] [place] [address] 15 Mar, 2013 [facility] [place] [facility] [address] [id number] [place] [address] 14 Mar, 2013 [facility] [place] [facility] [address] [id number] [place] [address] 14 Mar, 2013 [facility] [place] [facility] [address] [facility] [id number] [place] [address] 14 Mar, 2013 [facility] [place] [facility] [address] [id number] [place] [address] 14 Mar, 2013 [facility] [place] [facility] [address] [id number] [place] [address] 09 Mar, 2013 [facility] [place] [facility] [address] [id number] [place] [address] Mar, 2013 [facility] [place] [facility] [address] [facility] [id number] [place] [address] Mar, 2013 [facility] [place] [facility] [address] [facility] [id number] [place] [address] Mar, 2013 [facility] [place] [facility] [address] [id number] [place] [address] Feb, 2013 [facility] [place] [facility] [address] [id number] [place] [address] Feb, 2013 [facility] [place] [facility] [address] [facility] [id number] [place] [address] Feb, 2013 [facility] [place] [facility] [address] [id number] [place] [address] Feb, 2013 [facility] [place] [facility] [address] [id number] [place] [address] Feb, 2013 [facility] [place] [facility] [address] [id number] [place] [address] Feb, 2013 [facility] [place] [facility] [address] [id number] [place] [address] Feb, 2013 [facility] [place] [facility] [address] [id number] [place] [address] Feb, 2013 [facility] [place] [facility] [address] [id number] [place] [address] Feb, 2013 [facility] [place] [facility] [address] [id number] [place] [address] Feb, 2013 [facility] [place] [facility] [address] [id number] [place] [address] Feb, 2013 [facility] [place] [facility] [address] [id number] [place] [address] Feb, 2013 [facility] [place] [facility] [address] [id number] [place] [address] Jan, [facility] [place] [facility] [address] [id number] [place] [address] Jan, [facility] [place] [facility] [address] [id number] [place] [address] Jan, [facility] [place] [facility] [address] [id number] [place] [address] Jan, [facility] [place] [facility] [address] [facility] [id number] [place] [address] Jan, [facility] [place] [facility] [address] [id number] [place] [address] Jan, [facility] [place] [facility] [address] [id number] [place] [address] Jan, [facility] [place] [facility] [address] [id number] [place] [address] Jan, [facility] [place] [facility] [address] [id number] [place] [address] Jan, [facility] [place] [facility] [address] [id number] [place] [address] Jan, [facility] [place] [facility] [address] [id number] [place] [address] Jan, [facility] [place] [facility] [address] [id number] [place] [address] Jan, [facility] [place] [facility] [address] [id number] [place] [address] Jan, [facility] [place] [facility] [address] [id number] [place] [address] Dec, [facility] [place] [facility] [address] [id number] [place] [address] Dec, [facility] [place] [facility] [address] [id number] [place] [address] Dec, [facility] [place] [facility] [address] [id number] [place] [address] Dec, [facility] [place] [facility] [address] [id number] [place] [address] Dec, [facility] [place] [facility] [address] [id number] [place] [address] Dec, [facility] [place] [facility] [address] [id number] [place] [address] Dec, 2013 [facility] [place] [facility] [address] [facility] [id number] [place] [address] Dec, 2013 [facility] [place] [facility] [address] [facility] [id number] [place] [address] Dec, 2013 [facility] [place] [facility] [address] [id number] [place] [address] Dec, 2013 [facility] [place] [facility] [address] [facility] [id number] [place] [address] Dec, 2013 [facility] [place] [facility] [address] [facility] [id number] [place] [address] Dec, 2013 [facility] [place] [facility] [address] [id number] [place] [address] Dec, 2013 [facility] [place] [facility] [address] [id number] [place] [address] Dec, 2013 [facility] [place] [facility] [address] [id number] [place] [address] Dec, 2013 [facility] [place] [facility] [address] [id number] [place] [address] Dec, 2013 [facility] [place] [facility] [address] [id number] [place] [address] Dec, [facility] [place] [facility] [address] [id number] [place] [address] Dec, 2013 [facility] [place] [facility] [address] [id number] [place] [address] Nov, [facility] [place] [facility] [address] [facility] [id number] [place] [address] Nov, [facility] [place] [facility] [address] [id number] [place] [address] Nov, [facility] [place] [facility] [address] [id number] [place] [address] Nov, [facility] [place] [facility] [address] [id number] [place] [address] Nov, [facility] [place] [facility] [address] [facility] [id number] [place] [address] Nov, [facility] [place] [facility] [address] [facility] [id number] [place] [address] Nov, [facility] [place] [facility] [address] [facility] [id number] [place] [address] Nov, [facility] [place] [facility] [address] [facility] [id number] [place] [address] Nov, [facility] [place] [facility] [address] [facility] [id number] [place] [address] Nov, [facility] [place] [facility] [address] [facility] [id number] [place] [address] Nov, [facility] [place] [facility] [address] [id number] [place] [address] Nov, [facility] [place] [facility] [address] [id number] [place] [address] Nov, [facility] [place] [facility] [address] [facility] [id number] [place] [address] Nov, [facility] [place] [facility] [address] [id number] [place] [address] Nov, [facility] [place] [facility] [address] [id number] [place] [address] Nov, [facility] [place] [facility] [address] [id number] [place] [address] Nov, [facility] [place] [facility] [address] [facility] [id number] [place] [address] Nov, [facility] [place] [facility] [address] [facility] [id number] [place] [address] Nov, [facility] [place] [facility] [address] [facility] [id number] [place] [address] Nov, [facility] [place] [facility] [address] [id number] [place] [address] October, [facility] [place] [facility] [address] [id number] [place] [address] October, [facility] [place] [facility] [address] [id number] [place] [address] October, [facility] [place] [facility] [address] [id number] [place] [address] October, [facility] [place] [facility] [address] [id number] [place] [address] Sep, [facility] [place] [facility] [address] [id number] [place] [address] Sep, [facility] [place] [facility] [address] [id number] [place] [address] Sep, [facility] [place] [facility] [address] [id number] [place] [address] Sep, [facility] [place] [facility] [address] [id number] [place] [address] Sep, [facility] [place] [facility] [address] [id number] [place] [address] Sep, [facility] [place] [facility] [address] [id number] [place] [address] Sep, [facility] [place] [facility] [address] [id number] [place] [address] Sep, [facility] [place] [facility] [address] [id number] [place] [address] Sep, [facility] [place] [facility] [address] [id number] [place] [address] Aug, [facility] [place] [facility] [address] [id number] [place] [address] Aug, [facility] [place] [facility] [address] [id number] [place] [address] Aug, [facility] [place] [facility] [address] [id number] [place] [address] Aug, [facility] [place] [facility] [address] [id number] [place] [address] Aug, [facility] [place] [facility] [address] [id number] [place] [address] Aug, [facility] [place] [facility] [address] [id number] [place] [address] Aug, [facility] [place] [facility] [address] [id number] [place] [address] Aug, [facility] [place] [facility] [address] [id number] [place] [address] Jul, [facility] [place] [facility] [address] [id number] [place] [address] Jul, [facility] [place] [facility] [address] [id number] [place] [address] Jun, [facility] [place] [facility] [address] [id number] [place] [address] Jun, [facility] [place] [facility] [address] [id number] [place] [address] Jun, [facility] [place] [facility] [address] [id number] [place] [address] Jun, [facility] [place] [facility] [address] [id number] [place] [address] Jun, [facility] [place] [facility] [address] [id number] [place] [address] Jun, [facility] [place] [facility] [address] [id number] [place] [address] Jun, [facility] [place] [facility] [address] [id number] [place] [address] Jun, [facility] [place] [facility] [address] [id number] [place] [address] Jun, [facility] [place] [facility] [address] [id number] [place] [address] Jun, [facility] [place] [facility] [address] [id number] [place] [address] Jun, [facility] [place] [facility] [address] [id number] [place] [address] Jun, [facility] [place] [facility] [address] [id number] [place] [address] May, [facility] [place] [facility] [address] [id number] [place] [address] May, [facility] [place] [facility] [address] [id number] [place] [address] May, [facility] [place] [facility] [address] [id number] [place] [address] May, [facility] [place] [facility] [address] [id number] [place] [address] May, [facility] [place] [facility] [address] [id number] [place] [address] May, [facility] [place] [facility] [address] [id number] [place] [address] May, [facility] [place] [facility] [address] [id number] [place] [address] May, [facility] [place] [facility] [address] [id number] [place] [address] May, [facility] [place] [facility] [address] [id number] [place] [address] May, [facility] [place] [facility] [address] [id number] [place] [address] May, [facility] [place] [facility] [address] [id number] [place] [address] May, [facility] [place] [facility] [address] [id number] [place] [address] May, [facility] [place] [facility] [address] [id number] [place] [address] Apr, [facility] [place] [facility] [address] [id number] [place] [address] Apr, [facility] [place] [facility] [address] [id number] [place] [address] Mar, [facility] [place] [facility] [address] [id number] [place] [address] Mar, [facility] [place] [facility] [address] [id number] [place] [address] Feb, [facility] [place] [facility] [address] [id number] [place] [address] Feb, [facility] [place] [facility] [address] [id number] [place] [address] Feb, [facility] [place] [facility] [address] [id number] [place] [address] Feb, [facility] [place] [facility] [address] [id number] [place] [address] Jan, [facility] [place] [facility] [address] [id number] [place] [address] Jan, [facility] [place] [facility] [address] [id number] [place] [address] Jan, [facility] [place] [facility] [address] [id number] [place] [address] Jan, [facility] [place] [facility] [address] [id number] [place] [address] Jan, [facility] [place] [facility] [address] [id number] [place] [address] Jan, [facility] [place] [facility] [address] [id number] [place] [address] Dec, [facility] [place] [facility] [address] [id number] [place] [address] Dec, [facility] [place] [facility] [address] [id number] [place] [address] Dec, [facility] [place] [facility] [address] [id number] [place] [address] Dec, [facility] [place] [facility] [address] [id number] [place] [address] Nov, [facility] [place] [facility] [address] [id number] [place] [address] October, [facility] [place] [facility] [address] [id number] [place] [address] October, [facility] [place] [facility] [address] [id number] [place] [address] October, [facility] [place] [facility] [address] [id number] [place] [address] Sep, [facility] [place] [facility] [address] [id number] [place] [address] Sep, [facility] [place] [facility] [address] [id number] [place] [address] Jun, [facility] [place] [facility] [address] [id number] [place] [address] Jun, [facility] [place] [facility] [address] [id number] [place] [address] Jun, [facility] [place] [facility] [id number] [place] [address] Apr, [facility] [place] [facility] [address] [id number] [place] [address] Apr, [facility] [place] [facility] [address] [id number] [place] [address] Apr, [facility] [place] [facility] [address] [id number] [place] [address] Apr, [facility] [place] [facility] [address] [id number] [place] [address] Mar, [facility] [place] [facility] [address] [id number] [place] [address] Mar, [facility] [place] [facility] [address] [id number] [place] [address] Mar, [facility] [place] [facility] [address] [id number] [place] [address] Mar, [facility] [place] [facility] [address] [id number] [place] [address] Feb, [facility] [place] [facility] [address] [id number] [place] [address] 27 Feb, 2012 [facility] [place] [facility] [address] [id number] [place] [address] Feb, [facility] [place] [facility] [address] [id number] [place] [address] Jan, [facility] [place] [facility] [address] [id number] [place] [address] Jan, [facility] [place] [facility] [address] [id number] [place] [address] Jan, [facility] [place] [facility] [address] [id number] [place] [address] Jan, [facility] [place] [facility] [address] [id number] [place] [address] Dec, [facility] [place] [facility] [address] [id number] [place] [address] Dec, [facility] [place] [facility] [address] [id number] [place] [address] Nov, [facility] [place] [facility] [address] [id number] [place] [address] Nov, [facility] [place] [facility] [address] [id number] [place] [address] October, [facility] [place] [facility] [address] [id number] [place] [address] October, [facility] [place] [facility] [address] [id number] [place] [address] October, [facility] [place] [facility] [address] [id number] [place] [address] Sep, [facility] [place] [facility] [address] [id number] [place] [address] Sep, [facility] [place] [facility] [address] [id number] [place] [address] Sep, [facility] [place] [facility] [address] [id number] [place] [address] Aug, [facility] [place] [facility] [address] [id number] [place] [address] 26 Aug, 2011 [facility] [place] [facility] [address] [id number] [place] [address] 15 Aug, 2011 [facility] [place] [facility] [address] [id number] [place] [address] 15 Aug, 2011 [facility] [place] [facility] [address] [id number] [place] [address] Aug, [facility] [place] [facility] [address] [id number] [place] [address] 23 Jul, 2011 [facility] [place] [facility] [address] [id number] [place] [address] 16 Jul, 2011 [facility] [place] [facility] [address] [id number] [place] [address] 13 Jul, 2011 [facility] [place] [facility] [address] [id number] [place] [address] Jul, [facility] [place] [facility] [address] [id number] [place] [address] Jul, [facility] [place] [facility] [address] [id number] [place] [address] Jul, [facility] [place] [facility] [address] [id number] [place] [address] Jul, [facility] [place] [facility] [address] [id number] [place] [address] Jul, [facility] [place] [facility] [address] [id number] [place] [address] Jun, [facility] [address] [id number] [place] [address] Jun, [facility] [id number] [place] [address] May, [facility] [address] [id number] [place] [address] May, [facility] [address] [id number] [place] [address] 08 May, 2011 [facility] [address] [id number] [place] [address] 08 May, 2011 [facility] [address] [id number] [place] [address] Apr, [facility] [address] [id number] [place] [address] Apr, [facility] [address] [id number] [place] [address] Apr, [facility] [address] [id number] [place] [address] Mar, [facility] [address] [id number] [place] [address] Mar, [facility] [address] [id number] [place] [address] Mar, [facility] [address] [id number] [place] [address] Mar, [facility] [address] [id number] [place] [address] Dec, [facility] [address] [id number] [place] [address] October, [facility] [address] [id number] [place] [address] May, [facility] [address] [id number] [place] [address] May, [facility] [address] [id number] [place] [address] May, [facility] [address] [id number] [place] [address] May, [facility] [address] [id number] [place] [address] Mar, [facility] [address] [id number] [place] [address] Mar, [facility] [address] [id number] [place] [address] May, [facility] [address] [id number] [place] [address] May, [facility] [address] [id number] [place] [address] May, [facility] [address] [id number] [place] [address] May, [facility] [address] [id number] [place] [address] Apr, [facility] [address] [id number] [place] [address] Apr, [facility] [address] [id number] [place] [address] October, IMMUNIZATIONS No Known Immunizations SOCIAL HISTORY Never Assessed REASON FOR VISIT PLAN OF CARE VITAL SIGNS MEDICATIONS Unknown Medications RESULTS No Results PROCEDURES Procedure Date Ordered Result Body Site COMPLETE CBC W/AUTO DIFF WBC December 02, 2013 LIPID PANEL December 02, 2013 COMPREHEN METABOLIC PANEL December 02, 2013 VENIPUNCT, ROUTINE* December 02, 2013 INSTRUCTIONS MEDICATIONS ADMINISTERED No Known [...]
--- OUTSIDE RECORDS SUMMARY | 2020-01-13 12:18 | XMS REPORT ---
Author Author Monique RAHMAN Organization [facility] Address [address] [place] [address] Care Team Providers Care Sample Worker Name Role Phone RASHEED RAHMAN Unavailable PROBLEMS Type Condition ICD9-CM Code QSP34-JG Code Onset Dates Condition S tatus SNOMED Code Problem Panic disorder without agoraphobia F41.0 Active 62509235 Problem Agoraphobia F40.00 Active 14332842 Problem Fatigue R53.83 Active 72020271 Problem Varicose veins of both lower extremities I83.93 Active 76189523 Problem Mild chronic obstructive pulmonary disease J44.9 Active 437319705 Problem Mild persistent asthma without complication J45.30 Active 517750279 Problem On home oxygen therapy Z99.81 Active 304034943544 Problem History of illicit drug use Z87.898 Ac tive 784963430 Problem Essential hypertension I10 Active 30311872 Problem MRSA (methicillin resistant staph aureus) culture positive Z22.322 Active 709746792 Problem Major depressive disorder, recurrent episode, moderate F33.1 Active 353351026 Problem 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 Active 332444102 Problem Arthritis M19.90 Active 3104906 Problem Major depressive disorder in full remission F32.5 Active 11446538 Problem Social phobia F40.10 Active 806538 02 Problem Impaired circulation I99.9 Active 45382390 Problem Slow transit constipation K59.01 Acti ve 41052585 Problem Neuropathy G62.9 Active 729540918 Problem Snoring R06.83 Active 35363595 Problem Dysthymic disorder F34.1 Active 7 7817296 Problem Mood disorder F39 Active 467197 05 Problem Psychotic disorder F29 Active 6 4194961 Problem Hypertension, benign I10 Active 87782673 Problem Onychomycosis B35.1 Active 875992 008 ALLERGIES No Information ENCOUNTERS Encounter Location Date Diagnosis [facility] [address] [address] Aug, [place] [address] [address] Jul, [place] [address] [address] Jul, [place] [address] [address] May, Morbid obesity E66.01 [place] [address] [address] May, Encounter for immunization Z23 [place] [address] [address] May, Major depressive disorder, recurrent epi sode, moderate F33.1 ; Panic disorder without agoraphobia F41.0 and Morbid obesity E66.01 [place] [address] [address] May, Major depressive disorder in full remiss ion F32.5 and Panic disorder without agoraphobia F41.0 [place] [address] [address] Apr, Morbid obesity E66.01 [place] [address] [address] Apr, Slow transit constipation K59.01 and Lois lulitis of left lower extremity L03.116 [place] [address] [address] Apr, Morbid obesity E66.01 [place] [address] [address] Apr, [place] [address] [address] Apr, Major depressive disorder, recurrent epi sode, moderate F33.1 and Panic disorder without agoraphobia F41.0 [place] [address] [address] Mar, Viral upper respiratory tract infection J06.9 [place] [address] [address] 10 Mar, 2019 Bronchitis J40 and Encounter for immuniz ation Z23 [place] [address] [address] Mar, Morbid obesity E66.01 [place] [address] [address] Feb, Major depressive disorder, recurrent epi sode, moderate F33.1 and Panic disorder without agoraphobia F41.0 [place] [address] [address] Feb, Morbid obesity E66.01 [place] [address] [address] 06 Feb, 2019 Onychomycosis B35.1 ; Type 2 diabetes me llitus with diabetic neuropathic arthropathy E11.610 and Xerosis of skin L85.3 [place] [address] [address] 04 Feb, 2019 Major depressive disorder, recurrent epi sode, moderate F33.1 ; Panic disorder without agoraphobia F41.0 and Morbid obesity E66.01 [place] [address] [address] Jan, Major depressive disorder in full remiss ion F32.5 and Panic disorder without agoraphobia F41.0 [place] [address] [address] Jan, Pneumonia of both lower lobes due to inf ectious organism J18.1 and Morbid obesity E66.01 [place] [address] [address] Jan, [address] [address] Jan, Major depressive disorder in full remiss ion F32.5 and Panic disorder without agoraphobia F41.0 [place] [address] [address] Jan, [place] [address] [address] Jan, Major depressive disorder, recurrent epi sode, moderate F33.1 ; Panic disorder without agoraphobia F41.0 and Morbid obesity E66.01 [place] [address] [address] Dec, Bilious vomiting with nausea R11.14 ; Co ughing R05 and Choking, subsequent encounter T17.308D [place] [address] [address] Dec, Morbid obesity E66.01 [place] [address] [address] Dec, Major depressive disorder, recurrent epi sode, moderate F33.1 and Panic disorder without agoraphobia F41.0 [place] [address] [address] Dec, [place] [address] [address] Dec, Major depressive disorder, recurrent epi sode, moderate F33.1 [place] [address] [address] Nov, Major depressive disorder, recurrent epi sode, moderate F33.1 ; Panic disorder without agoraphobia F41.0 and Morbid obesity E66.01 [place] [address] [address] Nov, Morbid obesity E66.01 [place] [address] [address] Nov, Major depressive disorder, recurrent epi sode, moderate F33.1 and Panic disorder without agoraphobia F41.0 [facility] [address] [facility] [id number] [address] [place] [address] Nov, Allergic reaction, initial e ncounter T78.40XA and Morbid obesity E66.[address] [address] Nov, [place] [address] [address] Nov, Morbid obesity E66.01 ; Swallowing probl em R13.10 and Hypertension, benign I10 [facility] [place] [id number] [address] [place] [address] 07 Nov, 2018 Morbid obesity E66.01 ; COPD exacerbation J44.1 and Non- recurrent acute suppurative otitis media of left ear without spontaneous rupture of tympanic membrane H66.[address] [address] Nov, Onychomycosis B35.1 ; Neuropathy G62.9 a nd Fissure in skin of foot R23.[address] [address] October, Major depressive disorder, recurrent epi sode, moderate F33.1 ; Panic disorder without agoraphobia F41.0 and Morbid obesity E66.01 [facility] [place] [id number] [address] [place] [address] October, Viral upper respiratory trac t infection J06.9 [place] [address] [address] October, [address] [address] October, Major depressive disorder, recurrent epi sode, moderate F33.1 and Panic disorder without agoraphobia F41.0 [place] [address] [address] October, [place] [address] [address] October, [place] [id number] [place] [address] October, [facility] [address] [address] October, [facility] [address] [address] October, [facility] [address] [address] October, [facility] [address] [address] October, Major depressive disorder, recurrent epi sode, moderate F33.1 and Panic disorder without agoraphobia F41.0 [place] [address] [address] Sep, Morbid obesity E66.01 and Lumbar neuriti s M54.16 [place] [address] [address] Sep, Panic disorder without agoraphobia F41.0 and Major depressive disorder, recurrent episode, moderate F33.1 [facility] [address] [facility] [id number] [address] [place] [address] Sep, Gastroenteritis K52.9 ; Low back pain M54.5 ; Other chronic pain G89.29 and Morbid obesity E66.01 [facility] [address] [address] Sep, Major depressive disorder, recurrent epi sode, moderate F33.1 ; Panic disorder without agoraphobia F41.0 and Social phobia F40.10 [facility] [address] [address] Sep, Panic disorder without agoraphobia F41.0 [facility] [address] [address] Sep, Panic disorder without agoraphobia F41.0 [facility] [address] [address] Aug, Panic disorder without agoraphobia F41.0 ; Major depressive disorder, recurrent episode, moderate F33.1 ; Social phobia F40.10 ; Psychotic disorder F29 ; Tardive dyskinesia G24.01 and Morbid obesity E66.01 [place] [address] [address] Aug, Dysthymic disorder F34.1 and Psychotic d isorder F29 [place] [address] [address] Aug, Encounter for Medicare annual wellness e xam Z00.00 ; Morbid obesity E66.01 and Type 2 diabetes mellitus with diabetic neuropathic arthropathy E11.610 [place] [address] [address] Aug, Dysthymic disorder F34.1 and Psychotic d isorder F29 [place] [address] [address] Aug, Neuropathy G62.9 ; Onychomycosis B35.1 a nd Xerosis of skin L85.3 [place] [address] [address] Jul, [address] [address] Jul, Mood disorder F39 ; Wheezing R06.2 ; Diego sanchez, initial encounter T17.308A and Coughing R05 [place] [address] [address] Jul, Low back pain M54.5 [facility] [address] [facility] [id number] [address] [place] [address] Jun, Flu-like symptoms R68.89 ; B [place] 45.0-49.9, adult Z68.42 ; COPD exacerbation J44.1 and Acute bronchitis J20.9 [place] [address] [address] Jun, [place] [address] [address] May, [place] [address] [address] May, Onychomycosis B35.1 and Type 2 diabetes mellitus with diabetic neuropathic arthropathy E11.610 [place] [address] [address] May, Low back pain M54.5 and Edema leg R60.0 [place] [address] [address] May, BMI 45.0-49.9, adult Z68.42 ; Well woman exam with routine gynecological exam Z01.419 and Breast cancer screening Z12.31 [place] [address] [address] 19 Apr, 2018 Arthritis M19.90 [place] [address] [address] 16 Apr, 2018 Arthritis M19.90 and Otalgia of both ear s H92.03 [place] [address] [address] Feb, [place] [address] [address] Feb, Low back pain M54.5 ; Other chronic pain G89.29 ; Exertional asthma J45.990 and Encounter for immunization Z23 [place] [address] [address] Feb, Skin fissures R23.4 ; Neuropathy G62.9 a nd Onychomycosis B35.1 [place] [address] [address] 05 Feb, 2018 Dysthymic disorder F34.1 [place] [address] [address] Feb, [place] [address] [address] Jan, [facility] [address] [address] Jan, Abrasion of right elbow, initial encount er S50.311A ; Abrasion, right knee, initial encounter S80.211A and Sprain of other ligament of right ankle, initial encounter S93.491A [facility] [address] [address] Jan, [facility] [address] [facility] [id number] [address] [place] [address] Jan, Injury of left ankle, initia l encounter S99.912A ; Fall down stairs, initial encounter W10.8XXA and BMI 45.0-49.9, adult Z68.42 [place] [address] [address] Jan, COPD exacerbation J44.1 [place] [address] [address] Jan, Dysfunction of both eustachian tubes H69 .83 [place] [address] [address] 08 Jan, 2018 Bronchitis J40 and Acute suppurative giovana tis media of left ear without spontaneous rupture of tympanic membrane, recurrence not specified H66.002 [facility] [address] [address] Jan, [place] [address] [address] Jan, Bronchitis J40 and BMI 40.0-44.9, adult Z68.41 [place] [address] [address] Jan, [place] [address] [address] Dec, Gastric pain R10.9 [place] [address] [address] Dec, [place] [address] [address] Dec, History of illicit drug use Z87.898 ; Ne uropathy G62.9 ; COPD (chronic obstructive pulmonary disease) with chronic bronchitis J44.9 and Acute pain of right knee M25.561 [place] [address] [address] Nov, [place] [address] [address] Nov, Onychomycosis B35.1 and Contusion of lef t foot, subsequent encounter S90.32XD [address] [address] Nov, COPD exacerbation J44.1 [place] [address] [address] Sep, [place] [address] [address] Sep, Dysthymic disorder F34.1 ; Tobacco abuse Z72.0 ; Pain in right knee M25.561 ; Pain in left knee M25.562 ; Other chronic pain G89.29 and BMI 40.0- 44.9, adult Z68.[address] [address] Aug, Major depressive disorder, recurrent epi sode, moderate F33.1 and Social phobia F40.[address] [address] Aug, Dysthymic disorder F34.1 ; Non-pressure chronic ulcer of left thigh, unspecified ulcer stage L97.129 ; Tobacco abuse Z72.0 ; Mild chronic obstructive pulmonary disease J44.9 and Forgetfulness R68.89 [place] [address] [address] 09 Aug, 2017 Onychomycosis B35.1 ; Fissure in skin of foot R23.4 and Foot callus L84 [facility] [address] [facility] [id number] [place] [address] Jul, Right medial knee pain M25.5 61 ; Upper respiratory tract infection, unspecified type J06.9 and BMI 40.0-44.9, adult Z68.41 [facility] [address] [facility] [id number] [place] [address] 08 Jul, 2017 Nausea and vomiting, intract ability of vomiting not specified, unspecified vomiting type R11.2 ; Left ear pain H92.02 and Gastric pain R10.9 [place] [address] [address] Apr, Encounter for immunization Z23 [place] [address] [address] Apr, Onychomycosis B35.1 ; Xerosis of skin L8 5.3 ; Neuropathy G62.9 and 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 [place] [address] [address] Jan, Onychomycosis B35.1 and Neuropathy G62.9 [place] [address] [address] Dec, [place] [address] [address] Dec, [place] [address] [address] Nov, [place] [address] [address] Aug, [place] [address] [address] Aug, [place] [address] [address] Jul, [place] [address] [address] Jul, [place] [address] [address] 17 Jul, 2016 Decubitus ulcer of left thigh, stage 2 L 89.892 [facility] [address] [address] 17 Jul, 2016 Decubitus ulcer of left thigh, stage 2 L 89.892 [facility] [address] [address] 17 Jul, 2016 [facility] [address] [address] 15 Jul, 2016 Decubitus ulcer of left thigh, stage 2 L 89.892 [facility] [address] [address] 14 Jul, 2016 [facility] [address] [address] 13 Jul, 2016 Cellulitis of other specified site L03.8 18 ; Illicit drug use F19.90 and Decubitus ulcer of left thigh, stage 2 L89.892 [facility] [address] [address] 08 Jul, 2016 [place] [address] [address] 06 Jul, 2016 Cellulitis of right breast N61.0 [facility] [address] [address] Jun, [facility] [address] [address] Jun, [facility] [address] [address] Jun, Wheezing R06.2 and Arthralgia, unspecifi ed joint M25.50 [facility] [address] [address] May, [facility] [address] [address] May, [facility] [address] [address] May, [facility] [address] [address] 05 May, 2016 Shortness of breath R06.02 [facility] [address] [address] 02 May, 2016 Onychomycosis B35.1 and Fissure in skin of foot R23.4 [facility] [address] [address] 28 Apr, 2016 [facility] [address] [facility] [id number] [address] [place] [address] 18 Apr, 2016 Dizziness R42 [place] [address] [address] 14 Apr, 2016 Shortness of breath R06.02 ; Essential h ypertension I10 ; Dizziness R42 and On home oxygen therapy Z99.81 [facility] [address] [address] Apr, [place] [address] [address] 08 Apr, 2016 [facility] [address] [address] 07 Apr, 2016 [place] [address] [address] Apr, [facility] [address] [address] Apr, [facility] [address] [address] Apr, [facility] [address] [address] Apr, [facility] [address] [address] Mar, Mild chronic obstructive pulmonary disea se J44.9 [facility] [address] [address] Mar, [place] [address] [address] Mar, Epigastric pain R10.13 ; Low back pain M 54.5 ; Other chronic pain G89.29 and Breast cancer screening Z12.39 [place] [address] [address] Mar, [facility] [address] [address] Mar, [place] [address] [address] Feb, [place] [address] [address] Feb, [place] [address] [address] Feb, Fissure in skin of foot R23.4 and Onycho mycosis B35.1 [place] [address] [address] Jan, Agoraphobia F40.00 [place] [address] [address] Dec, Agoraphobia F40.00 [place] [address] [address] Dec, Mild persistent asthma without complicat ion J45.30 ; Dysthymic disorder F34.1 and Upper respiratory tract infection, unspecified type J06.9 [place] [address] [address] Nov, Agoraphobia F40.00 [place] [address] [address] October, Agoraphobia F40.00 [place] [address] [address] Sep, Panic disorder without agoraphobia F41.0 ; Agoraphobia F40.00 and Dysthymic disorder F34.1 [place] [address] [address] Sep, Panic attacks F41.0 [place] [address] [address] Sep, [place] [address] [address] Sep, Panic disorder without agoraphobia F41.0 ; Varicose veins of both lower extremities I83.93 and Fatigue R53.83 [place] [address] [address] Sep, Fatigue R53.83 [place] [address] [address] Sep, [place] [address] [address] Aug, [place] [address] [address] Aug, [place] [address] [address] Aug, Panic disorder without agoraphobia F41.0 ; Agoraphobia F40.00 and Dysthymic disorder F34.1 [place] [address] [address] Aug, Type 2 diabetes mellitus with diabetic n europathic arthropathy E11.610 [place] [address] [address] Aug, Shortness of breath R06.02 ; Panic attac ks F41.0 ; COPD (chronic obstructive pulmonary disease) J44.9 ; Tobacco abuse Z72.0 ; Family history of diabetes mellitus Z83.3 and Weight gain R63.5 [place] [address] [address] Aug, [place] [address] [address] Jul, [facility] [address] [address] Jun, Onychomycosis B35.1 ; Neuropathy G62.9 a nd Impaired circulation I99.9 [facility] [address] [address] Mar, Fissure in skin of foot R23.4 ; Onychomy cosis B35.1 and 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 [place] [address] [address] 18 Feb, 2015 Family history of coronary arteriosclero sis V17.3 [place] [address] [address] 15 Feb, 2015 Allergic rhinitis due to pollen 477.0 ; Unspecified breast screening V76.10 ; Anxiety 300.00 and Family history of coronary arteriosclerosis V17.3 [facility] [address] [address] Jan, [facility] [address] [address] Dec, [place] [address] [address] Dec, Onychomycosis 110.1 and Skin fissures 70 9.8 [facility] [address] [address] Sep, [facility] [address] [address] Sep, [facility] [address] [address] Aug, [facility] [address] [address] Aug, [facility] [address] [address] Jul, [facility] [address] [facility] [id number] [place] [address] Jul, [facility] [address] [id number] [place] [address] Jun, [facility] [address] [id number] [place] [address] Jun, [facility] [address] [id number] [place] [address] Jun, [facility] [address] [id number] [place] [address] Jun, [facility] [address] [id number] [place] [address] Jun, [facility] [address] [id number] [place] [address] May, [facility] [address] [id number] [place] [address] May, [facility] [address] [id number] [place] [address] May, [facility] [address] [id number] [place] [address] May, [facility] [address] [id number] [place] [address] May, [facility] [address] [id number] [place] [address] May, [facility] [address] [id number] [place] [address] May, [facility] [address] [id number] [place] [address] May, [facility] [address] [id number] [place] [address] Apr, [facility] [address] [id number] [place] [address] Apr, [facility] [address] [id number] [place] [address] Apr, [facility] [address] [id number] [place] [address] Apr, [facility] [address] [id number] [place] [address] Apr, [facility] [address] [id number] [place] [address] Apr, [facility] [address] [id number] [place] [address] Apr, [facility] [address] [id number] [place] [address] Apr, [facility] [address] [id number] [place] [address] Apr, [facility] [address] [id number] [place] [address] Apr, [facility] [address] [id number] [place] [address] Mar, [facility] [address] [id number] [place] [address] Mar, [facility] [address] [id number] [place] [address] Mar, [facility] [address] [id number] [place] [address] Mar, [facility] [address] [id number] [place] [address] Mar, [facility] [address] [id number] [place] [address] Mar, [facility] [place] [facility] [address] [id number] [place] [address] Mar, [facility] [place] [facility] [address] [id number] [place] [address] Mar, [facility] [place] [facility] [address] [id number] [place] [address] Mar, [facility] [place] [facility] [address] [facility] [id number] [place] [address] 23 Mar, 2013 [facility] [place] [facility] [address] [facility] [id number] [place] [address] 23 Mar, 2013 [facility] [place] [facility] [address] [facility] [id number] [place] [address] Mar, 2013 [facility] [place] [facility] [address] [id number] [place] [address] 22 Mar, 2014 [facility] [place] [facility] [address] [facility] [id number] [place] [address] Mar, 2013 [facility] [place] [facility] [address] [facility] [id number] [place] [address] 22 Mar, 2013 [facility] [place] [facility] [address] [id number] [place] [address] 20 Mar, 2013 [facility] [place] [facility] [address] [id number] [place] [address] 20 Mar, 2013 [facility] [place] [facility] [address] [id number] [place] [address] 16 Mar, 2013 [facility] [place] [facility] [address] [id number] [place] [address] 16 Mar, 2013 [facility] [place] [facility] [address] [id number] [place] [address] 15 Mar, 2013 [facility] [place] [facility] [address] [id number] [place] [address] 14 Mar, 2013 [facility] [place] [facility] [address] [id number] [place] [address] 14 Mar, 2013 [facility] [place] [facility] [address] [facility] [id number] [place] [address] 14 Mar, 2013 [facility] [place] [facility] [address] [id number] [place] [address] 14 Mar, 2013 [facility] [place] [facility] [address] [id number] [place] [address] 09 Mar, 2013 [facility] [place] [facility] [address] [id number] [place] [address] Mar, 2013 [facility] [place] [facility] [address] [facility] [id number] [place] [address] Mar, 2013 [facility] [place] [facility] [address] [facility] [id number] [place] [address] Mar, 2013 [facility] [place] [facility] [address] [id number] [place] [address] Feb, 2013 [facility] [place] [facility] [address] [id number] [place] [address] Feb, 2013 [facility] [place] [facility] [address] [facility] [id number] [place] [address] Feb, 2013 [facility] [place] [facility] [address] [id number] [place] [address] Feb, 2013 [facility] [place] [facility] [address] [id number] [place] [address] Feb, 2013 [facility] [place] [facility] [address] [id number] [place] [address] Feb, 2013 [facility] [place] [facility] [address] [id number] [place] [address] Feb, 2013 [facility] [place] [facility] [address] [id number] [place] [address] Feb, 2013 [facility] [place] [facility] [address] [id number] [place] [address] Feb, 2013 [facility] [place] [facility] [address] [id number] [place] [address] Feb, 2013 [facility] [place] [facility] [address] [id number] [place] [address] Feb, 2013 [facility] [place] [facility] [address] [id number] [place] [address] Feb, 2013 [facility] [place] [facility] [address] [id number] [place] [address] Jan, [facility] [place] [facility] [address] [id number] [place] [address] Jan, [facility] [place] [facility] [address] [id number] [place] [address] Jan, [facility] [place] [facility] [address] [id number] [facility] [place] [address] Jan, [facility] [place] [facility] [address] [facility] [id number] [place] [address] Jan, [facility] [place] [facility] [address] [id number] [place] [address] Jan, [facility] [place] [facility] [address] [id number] [place] [address] Jan, [facility] [place] [facility] [address] [id number] [place] [address] Jan, [facility] [place] [facility] [address] [id number] [place] [address] Jan, [facility] [place] [facility] [address] [id number] [place] [address] Jan, [facility] [place] [facility] [address] [id number] [place] [address] Jan, [facility] [place] [facility] [address] [id number] [place] [address] Jan, [facility] [place] [facility] [address] [id number] [place] [address] Jan, [facility] [place] [facility] [address] [id number] [place] [address] Dec, [facility] [place] [facility] [address] [id number] [place] [address] Dec, [facility] [place] [facility] [address] [id number] [place] [address] Dec, [facility] [place] [facility] [address] [id number] [place] [address] Dec, [facility] [place] [facility] [address] [id number] [place] [address] Dec, [facility] [place] [facility] [address] [id number] [place] [address] Dec, [facility] [place] [facility] [address] [id number] [place] [address] Dec, 2013 [facility] [place] [facility] [address] [facility] [id number] [place] [address] Dec, 2013 [facility] [place] [facility] [address] [facility] [id number] [place] [address] Dec, 2013 [facility] [place] [facility] [address] [id number] [place] [address] Dec, 2013 [facility] [place] [facility] [address] [facility] [id number] [place] [address] Dec, 2013 [facility] [place] [facility] [address] [facility] [id number] [place] [address] Dec, 2013 [facility] [place] [facility] [address] [id number] [place] [address] Dec, 2013 [facility] [place] [facility] [address] [id number] [place] [address] Dec, 2013 [facility] [place] [facility] [address] [id number] [place] [address] Dec, 2013 [facility] [place] [facility] [address] [id number] [place] [address] Dec, 2013 [facility] [place] [facility] [address] [id number] [place] [address] Dec, [facility] [place] [facility] [address] [id number] [place] [address] Dec, 2013 [facility] [place] [facility] [address] [id number] [place] [address] Nov, [facility] [place] [facility] [address] [facility] [id number] [place] [address] Nov, [facility] [place] [facility] [address] [id number] [place] [address] Nov, [facility] [place] [facility] [address] [id number] [place] [address] Nov, [facility] [place] [facility] [address] [id number] [place] [address] Nov, [facility] [place] [facility] [address] [facility] [id number] [place] [address] Nov, [facility] [place] [facility] [address] [facility] [id number] [facility] [place] [address] Nov, [facility] [place] [facility] [address] [facility] [id number] [place] [address] Nov, [facility] [place] [facility] [address] [facility] [id number] [facility] [place] [address] Nov, [facility] [place] [facility] [address] [facility] [id number] [facility] [place] [address] Nov, [facility] [place] [facility] [address] [facility] [id number] [place] [address] Nov, [facility] [place] [facility] [address] [id number] [place] [address] Nov, [facility] [place] [facility] [address] [id number] [place] [address] Nov, [facility] [place] [facility] [address] [facility] [id number] [place] [address] Nov, [facility] [place] [facility] [address] [id number] [place] [address] Nov, [facility] [place] [facility] [address] [id number] [place] [address] Nov, [facility] [place] [facility] [address] [id number] [place] [address] Nov, [facility] [place] [facility] [address] [facility] [id number] [place] [address] Nov, [facility] [place] [facility] [address] [facility] [id number] [place] [address] Nov, [facility] [place] [facility] [address] [facility] [id number] [place] [address] Nov, [facility] [place] [facility] [address] [id number] [place] [address] October, [facility] [place] [facility] [address] [id number] [place] [address] October, [facility] [place] [facility] [address] [id number] [place] [address] October, [facility] [place] [facility] [address] [id number] [place] [address] October, [facility] [place] [facility] [address] [id number] [place] [address] Sep, [facility] [place] [facility] [address] [id number] [place] [address] Sep, [facility] [place] [facility] [address] [id number] [place] [address] Sep, [facility] [place] [facility] [address] [id number] [place] [address] Sep, [facility] [place] [facility] [address] [id number] [place] [address] Sep, [facility] [place] [facility] [address] [id number] [place] [address] Sep, [facility] [place] [facility] [address] [id number] [place] [address] Sep, [facility] [place] [facility] [address] [id number] [place] [address] Sep, [facility] [place] [facility] [address] [id number] [place] [address] Sep, [facility] [place] [facility] [address] [id number] [place] [address] Aug, [facility] [place] [facility] [address] [id number] [place] [address] Aug, [facility] [place] [facility] [address] [id number] [place] [address] Aug, [facility] [place] [facility] [address] [id number] [place] [address] Aug, [facility] [place] [facility] [address] [id number] [place] [address] Aug, [facility] [place] [facility] [address] [id number] [place] [address] Aug, [facility] [place] [facility] [address] [id number] [place] [address] Aug, [facility] [place] [facility] [address] [id number] [place] [address] Aug, [facility] [place] [facility] [address] [id number] [place] [address] Jul, [facility] [place] [facility] [address] [id number] [place] [address] Jul, [facility] [place] [facility] [address] [id number] [place] [address] Jun, [facility] [place] [facility] [address] [id number] [place] [address] Jun, [facility] [place] [facility] [address] [id number] [place] [address] Jun, [facility] [place] [facility] [address] [id number] [place] [address] Jun, [facility] [place] [facility] [address] [id number] [place] [address] Jun, [facility] [place] [facility] [address] [id number] [place] [address] Jun, [facility] [place] [facility] [address] [id number] [place] [address] Jun, [facility] [place] [facility] [address] [id number] [place] [address] Jun, [facility] [place] [facility] [address] [id number] [place] [address] Jun, [facility] [place] [facility] [address] [id number] [place] [address] Jun, [facility] [place] [facility] [address] [id number] [place] [address] Jun, [facility] [place] [facility] [address] [id number] [place] [address] Jun, [facility] [place] [facility] [address] [id number] [place] [address] May, [facility] [place] [facility] [address] [id number] [place] [address] May, [facility] [place] [facility] [address] [id number] [place] [address] May, [facility] [place] [facility] [address] [id number] [place] [address] May, [facility] [place] [facility] [address] [id number] [place] [address] May, [facility] [place] [facility] [address] [id number] [place] [address] May, [facility] [place] [facility] [address] [id number] [place] [address] May, [facility] [place] [facility] [address] [id number] [place] [address] May, [facility] [place] [facility] [address] [id number] [place] [address] May, [facility] [place] [facility] [address] [id number] [place] [address] May, [facility] [place] [facility] [address] [id number] [place] [address] May, [facility] [place] [facility] [address] [id number] [place] [address] May, [facility] [place] [facility] [address] [id number] [place] [address] May, [facility] [place] [facility] [address] [id number] [place] [address] Apr, [facility] [place] [facility] [address] [id number] [place] [address] Apr, [facility] [place] [facility] [address] [id number] [place] [address] Mar, [facility] [place] [facility] [address] [id number] [place] [address] Mar, [facility] [place] [facility] [address] [id number] [place] [address] Feb, [facility] [place] [facility] [address] [id number] [place] [address] Feb, [facility] [place] [facility] [address] [id number] [place] [address] Feb, [facility] [place] [facility] [address] [id number] [place] [address] Feb, [facility] [place] [facility] [address] [id number] [place] [address] Jan, [facility] [place] [facility] [address] [id number] [place] [address] Jan, [facility] [place] [facility] [address] [id number] [place] [address] Jan, [facility] [place] [facility] [address] [id number] [place] [address] Jan, [facility] [place] [facility] [address] [id number] [place] [address] Jan, [facility] [place] [facility] [address] [id number] [place] [address] Jan, [facility] [place] [facility] [address] [id number] [place] [address] Dec, [facility] [place] [facility] [address] [id number] [place] [address] Dec, [facility] [place] [facility] [address] [id number] [place] [address] Dec, [facility] [place] [facility] [address] [id number] [place] [address] Dec, [facility] [place] [facility] [address] [id number] [place] [address] Nov, [facility] [place] [facility] [address] [id number] [place] [address] October, [facility] [place] [facility] [address] [id number] [place] [address] October, [facility] [place] [facility] [address] [id number] [place] [address] October, [facility] [place] [facility] [address] [id number] [place] [address] Sep, [facility] [place] [facility] [address] [id number] [place] [address] Sep, [facility] [place] [facility] [address] [id number] [place] [address] Jun, [facility] [place] [facility] [address] [id number] [place] [address] Jun, [facility] [place] [facility] [address] [id number] [place] [address] Jun, [facility] [place] [facility] [id number] [place] [address] Apr, [facility] [place] [facility] [address] [id number] [place] [address] Apr, [facility] [id number] [place] [address] Apr, [facility] [address] [id number] [place] [address] Apr, [facility] [address] [id number] [place] [address] Mar, [facility] [address] [id number] [place] [address] Mar, [facility] [address] [id number] [place] [address] Mar, [facility] [address] [id number] [place] [address] Mar, [facility] [address] [id number] [place] [address] Feb, [facility] [address] [id number] [place] [address] 27 Feb, 2012 [facility] [address] [id number] [place] [address] Feb, [facility] [address] [id number] [place] [address] Jan, [facility] [address] [id number] [place] [address] Jan, [facility] [address] [id number] [place] [address] Jan, [facility] [address] [id number] [place] [address] Jan, [facility] [address] [id number] [place] [address] Dec, [facility] [address] [id number] [place] [address] Dec, [facility] [address] [id number] [place] [address] Nov, [facility] [address] [id number] [place] [address] Nov, [facility] [address] [id number] [place] [address] October, [facility] [address] [id number] [place] [address] October, [facility] [address] [id number] [place] [address] October, [facility] [address] [id number] [place] [address] Sep, [facility] [address] [id number] [place] [address] Sep, [facility] [address] [id number] [place] [address] Sep, [facility] [address] [id number] [place] [address] Aug, [facility] [address] [id number] [place] [address] 26 Aug, 2011 [facility] [address] [id number] [place] [address] 15 Aug, 2011 [facility] [address] [id number] [place] [address] 15 Aug, 2011 [facility] [address] [id number] [place] [address] Aug, [facility] [address] [id number] [place] [address] 23 Jul, 2011 [facility] [address] [id number] [place] [address] 16 Jul, 2011 [facility] [address] [id number] [place] [address] 13 Jul, 2011 [facility] [id number] [place] [address] Jul, [facility] [address] [id number] [place] [address] Jul, [facility] [address] [id number] [place] [address] Jul, [facility] [address] [id number] [place] [address] Jul, [facility] [address] [id number] [place] [address] Jul, [facility] [address] [id number] [place] [address] Jun, [facility] [address] [id number] [place] [address] Jun, [facility] [id number] [place] [address] May, [facility] [address] [id number] [place] [address] May, [facility] [address] [id number] [place] [address] 08 May, 2011 [facility] [address] [id number] [place] [address] 08 May, 2011 [facility] [address] [id number] [place] [address] Apr, [facility] [address] [id number] [place] [address] Apr, [facility] [address] [id number] [place] [address] Apr, [facility] [address] [id number] [place] [address] Mar, [facility] [address] [id number] [place] [address] Mar, [facility] [address] [id number] [place] [address] Mar, [facility] [address] [id number] [place] [address] Mar, [facility] [address] [id number] [place] [address] Dec, [facility] [address] [id number] [place] [address] October, [facility] [address] [id number] [place] [address] May, [facility] [address] [id number] [place] [address] May, [facility] [address] [id number] [place] [address] May, [facility] [address] [id number] [place] [address] May, [facility] [address] [id number] [place] [address] Mar, [facility] [address] [id number] [place] [address] Mar, [facility] [address] [id number] [place] [address] May, [facility] [address] [id number] [place] [address] May[facility] [address] [id number] [place] [address] May, [facility] [address] [id number] [place] [address] May, [facility] [address] [id number] [place] [address] Apr, [facility] [id number] [place] [address] Apr, [facility] [address] [id number] [place] [address] October, IMMUNIZATIONS No Known Immunizations SOCIAL HISTORY [...]
--- OUTSIDE RECORDS SUMMARY | 2020-01-13 12:18 | XMS REPORT ---
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 Name Role Phone RASHEED RAHMAN Unavailable PROBLEMS Type Condition ICD9-CM Code MUY64-QT Code Onset Dates Condition S tatus SNOMED Code Problem Panic disorder without agoraphobia F41.0 Active 82585616 Problem Agoraphobia F40.00 Active 17179921 Problem Fatigue R53.83 Active 87658142 Problem Varicose veins of both lower extremities I83.93 Active 17732366 Problem Mild chronic obstructive pulmonary disease J44.9 Active 949665447 Problem Mild persistent asthma without complication J45.30 Active 870962579 Problem Essential hypertension I10 Active 85167519 Problem Snoring R06.83 Active 76404273 Problem On home oxygen therapy Z99.81 Active 366784818236 Problem MRSA (methicillin resistant staph aureus) culture positive Z22.322 Active 752557112 Problem Major depressive disorder, recurrent episode, moderate F33.1 Active 490314366 Problem 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 Active 321217526 Problem Arthritis M19.90 Active 9546617 Problem Major depressive disorder in full remission F32.5 Active 67450349 Problem Social phobia F40.10 Active 763637 02 Problem Impaired circulation I99.9 Active 88144586 Problem Slow transit constipation K59.01 Acti ve 57940812 Problem Neuropathy G62.9 Active 566197794 Problem History of illicit drug use Z87.898 Ac tive 732068175 Problem Dysthymic disorder F34.1 Active 7 1972696 Problem Mood disorder F39 Active 074507 05 Problem Psychotic disorder F29 Active 6 0051206 Problem Hypertension, benign I10 Active 28135029 Problem Onychomycosis B35.1 Active 959145 008 ALLERGIES No Information ENCOUNTERS Encounter Location Date Diagnosis [facility] [address] [address] Aug, [place] [address] [address] Jul, [place] [address] [address] Jul, [place] [address] [address] May, Morbid obesity E66.01 [place] [address] [address] May, Encounter for immunization Z23 [place] [address] [address] May, Major depressive disorder, recurrent epi sode, moderate F33.1 ; Panic disorder without agoraphobia F41.0 and Morbid obesity E66.01 [place] [address] [address] May, Major depressive disorder in full remiss ion F32.5 and Panic disorder without agoraphobia F41.0 [place] [address] [address] Apr, Morbid obesity E66.01 [place] [address] [address] Apr, Slow transit constipation K59.01 and Lois lulitis of left lower extremity L03.116 [place] [address] [address] Apr, Morbid obesity E66.01 [place] [address] [address] Apr, [place] [address] [address] Apr, Major depressive disorder, recurrent epi sode, moderate F33.1 and Panic disorder without agoraphobia F41.0 [place] [address] [address] Mar, Viral upper respiratory tract infection J06.9 [place] [address] [address] 10 Mar, 2019 Bronchitis J40 and Encounter for immuniz ation Z23 [place] [address] [address] Mar, Morbid obesity E66.01 [place] [address] [address] Feb, Major depressive disorder, recurrent epi sode, moderate F33.1 and Panic disorder without agoraphobia F41.0 [place] [address] [address] Feb, Morbid obesity E66.01 [place] [address] [address] 06 Feb, 2019 Onychomycosis B35.1 ; Type 2 diabetes me llitus with diabetic neuropathic arthropathy E11.610 and Xerosis of skin L85.3 [place] [address] [address] 04 Feb, 2019 Major depressive disorder, recurrent epi sode, moderate F33.1 ; Panic disorder without agoraphobia F41.0 and Morbid obesity E66.01 [place] [address] [address] Jan, Major depressive disorder in full remiss ion F32.5 and Panic disorder without agoraphobia F41.0 [place] [address] [address] Jan, Pneumonia of both lower lobes due to inf ectious organism J18.1 and Morbid obesity E66.01 [place] [address] [address] Jan, [address] [address] Jan, Major depressive disorder in full remiss ion F32.5 and Panic disorder without agoraphobia F41.0 [place] [address] [address] Jan, [place] [address] [address] Jan, Major depressive disorder, recurrent epi sode, moderate F33.1 ; Panic disorder without agoraphobia F41.0 and Morbid obesity E66.01 [place] [address] [address] Dec, Bilious vomiting with nausea R11.14 ; Co ughing R05 and Choking, subsequent encounter T17.308D [place] [address] [address] Dec, Morbid obesity E66.01 [place] [address] [address] Dec, Major depressive disorder, recurrent epi sode, moderate F33.1 and Panic disorder without agoraphobia F41.0 [place] [address] [address] Dec, [place] [address] [address] Dec, Major depressive disorder, recurrent epi sode, moderate F33.1 [place] [address] [address] Nov, Major depressive disorder, recurrent epi sode, moderate F33.1 ; Panic disorder without agoraphobia F41.0 and Morbid obesity E66.01 [place] [address] [address] Nov, Morbid obesity E66.01 [place] [address] [address] Nov, Major depressive disorder, recurrent epi sode, moderate F33.1 and Panic disorder without agoraphobia F41.0 [facility] [address] [facility] [id number] [address] [place] [address] Nov, Allergic reaction, initial e ncounter T78.40XA and Morbid obesity E66.[address] [address] Nov, [place] [address] [address] Nov, Morbid obesity E66.01 ; Swallowing probl em R13.10 and Hypertension, benign I10 [facility] [place] [id number] [address] [place] [address] 07 Nov, 2018 Morbid obesity E66.01 ; COPD exacerbation J44.1 and Non- recurrent acute suppurative otitis media of left ear without spontaneous rupture of tympanic membrane H66.[address] [address] Nov, Onychomycosis B35.1 ; Neuropathy G62.9 a nd Fissure in skin of foot R23.[address] [address] October, Major depressive disorder, recurrent epi sode, moderate F33.1 ; Panic disorder without agoraphobia F41.0 and Morbid obesity E66.01 [facility] [place] [id number] [address] [place] [address] October, Viral upper respiratory trac t infection J06.9 [place] [address] [address] October, [address] [address] October, Major depressive disorder, recurrent epi sode, moderate F33.1 and Panic disorder without agoraphobia F41.0 [place] [address] [address] October, [place] [address] [address] October, [place] [id number] [place] [address] October, [facility] [address] [address] October, [facility] [address] [address] October, [facility] [address] [address] October, [facility] [address] [address] October, Major depressive disorder, recurrent epi sode, moderate F33.1 and Panic disorder without agoraphobia F41.0 [place] [address] [address] Sep, Morbid obesity E66.01 and Lumbar neuriti s M54.16 [place] [address] [address] Sep, Panic disorder without agoraphobia F41.0 and Major depressive disorder, recurrent episode, moderate F33.1 [facility] WALK IN [facility] [address] [facility] [id number] [address] [place] [address] Sep, Gastroenteritis K52.9 ; Low back pain M54.5 ; Other chronic pain G89.29 and Morbid obesity E66.01 [facility] [address] [address] Sep, Major depressive disorder, recurrent epi sode, moderate F33.1 ; Panic disorder without agoraphobia F41.0 and Social phobia F40.10 [facility] [address] [address] Sep, Panic disorder without agoraphobia F41.0 [facility] [address] [address] Sep, Panic disorder without agoraphobia F41.0 [facility] [address] [address] Aug, Panic disorder without agoraphobia F41.0 ; Major depressive disorder, recurrent episode, moderate F33.1 ; Social phobia F40.10 ; Psychotic disorder F29 ; Tardive dyskinesia G24.01 and Morbid obesity E66.01 [place] [address] [address] Aug, Dysthymic disorder F34.1 and Psychotic d isorder F29 [place] [address] [address] Aug, Encounter for Medicare annual wellness e xam Z00.00 ; Morbid obesity E66.01 and Type 2 diabetes mellitus with diabetic neuropathic arthropathy E11.610 [place] [address] [address] Aug, Dysthymic disorder F34.1 and Psychotic d isorder F29 [place] [address] [address] Aug, Neuropathy G62.9 ; Onychomycosis B35.1 a nd Xerosis of skin L85.3 [place] [address] [address] Jul, [address] [address] Jul, Mood disorder F39 ; Wheezing R06.2 ; Diego sanchez, initial encounter T17.308A and Coughing R05 [place] [address] [address] Jul, Low back pain M54.[address] [facility] [address] [facility] [id number] [address] [place] [address] Jun, Flu-like symptoms R68.89 ; B MT 45.0-49.9, adult Z68.42 ; COPD exacerbation J44.1 and Acute bronchitis J20.9 [place] [address] [address] Jun, [place] [address] [address] May, [place] [address] [address] May, Onychomycosis B35.1 and Type 2 diabetes mellitus with diabetic neuropathic arthropathy E11.610 [place] [address] [address] May, Low back pain M54.5 and Edema leg R60.0 [place] [address] [address] May, BMI 45.0-49.9, adult Z68.42 ; Well woman exam with routine gynecological exam Z01.419 and Breast cancer screening Z12.31 [place] [address] [address] 19 Apr, 2018 Arthritis M19.90 [place] [address] [address] 16 Apr, 2018 Arthritis M19.90 and Otalgia of both ear s H92.03 [place] [address] [address] Feb, [place] [address] [address] Feb, Low back pain M54.5 ; Other chronic pain G89.29 ; Exertional asthma J45.990 and Encounter for immunization Z23 [place] [address] [address] Feb, Skin fissures R23.4 ; Neuropathy G62.9 a nd Onychomycosis B35.1 [place] [address] [address] 05 Feb, 2018 Dysthymic disorder F34.1 [place] [address] [address] Feb, [place] [address] [address] Jan, [facility] [address] [address] Jan, Abrasion of right elbow, initial encount er S50.311A ; Abrasion, right knee, initial encounter S80.211A and Sprain of other ligament of right ankle, initial encounter S93.491A [facility] [address] [address] Jan, [facility] [address] [facility] [id number] [address] [place] [address] Jan, Injury of left ankle, initia l encounter S99.912A ; Fall down stairs, initial encounter W10.8XXA and BMI 45.0-49.9, adult Z68.42 [place] [address] [address] Jan, COPD exacerbation J44.1 [place] [address] [address] Jan, Dysfunction of both eustachian tubes H69 .83 [place] [address] [address] 08 Jan, 2018 Bronchitis J40 and Acute suppurative giovana tis media of left ear without spontaneous rupture of tympanic membrane, recurrence not specified H66.002 [facility] [address] [address] Jan, [place] [address] [address] Jan, Bronchitis J40 and BMI 40.0-44.9, adult Z68.41 [place] [address] [address] Jan, [place] [address] [address] Dec, Gastric pain R10.9 [place] [address] [address] Dec, [place] [address] [address] Dec, History of illicit drug use Z87.898 ; Ne uropathy G62.9 ; COPD (chronic obstructive pulmonary disease) with chronic bronchitis J44.9 and Acute pain of right knee M25.561 [place] [address] [address] Nov, [place] [address] [address] Nov, Onychomycosis B35.1 and Contusion of lef t foot, subsequent encounter S90.32XD [address] [address] Nov, COPD exacerbation J44.1 [place] [address] [address] Sep, [place] [address] [address] Sep, Dysthymic disorder F34.1 ; Tobacco abuse Z72.0 ; Pain in right knee M25.561 ; Pain in left knee M25.562 ; Other chronic pain G89.29 and BMI 40.0- 44.9, adult Z68.[address] [address] Aug, Major depressive disorder, recurrent epi sode, moderate F33.1 and Social phobia F40.[address] [address] Aug, Dysthymic disorder F34.1 ; Non-pressure chronic ulcer of left thigh, unspecified ulcer stage L97.129 ; Tobacco abuse Z72.0 ; Mild chronic obstructive pulmonary disease J44.9 and Forgetfulness R68.89 [place] [address] [address] 09 Aug, 2017 Onychomycosis B35.1 ; Fissure in skin of foot R23.4 and Foot callus L84 [facility] [address] [facility] [id number] [address] [address] Jul, Right medial knee pain M25.5 61 ; Upper respiratory tract infection, unspecified type J06.9 and BMI 40.0-44.9, adult Z68.41 [facility] [address] [facility] [id number] [address] [address] 08 Jul, 2017 Nausea and vomiting, intract ability of vomiting not specified, unspecified vomiting type R11.2 ; Left ear pain H92.02 and Gastric pain R10.9 [place] [address] [address] Apr, Encounter for immunization Z23 [place] [address] [address] Apr, Onychomycosis B35.1 ; Xerosis of skin L8 5.3 ; Neuropathy G62.9 and 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 [place] [address] [address] Jan, Onychomycosis B35.1 and Neuropathy G62.9 [place] [address] [address] Dec, [place] [address] [address] Dec, [place] [address] [address] Nov, [place] [address] [address] Aug, [place] [address] [address] Aug, [place] [address] [address] Jul, [place] [address] [address] Jul, [place] [address] [address] 17 Jul, 2016 Decubitus ulcer of left thigh, stage 2 L 89.892 [facility] [address] [address] 17 Jul, 2016 Decubitus ulcer of left thigh, stage 2 L 89.892 [facility] [address] [address] 17 Jul, 2016 [facility] [address] [address] 15 Jul, 2016 Decubitus ulcer of left thigh, stage 2 L 89.892 [facility] [address] [address] 14 Jul, 2016 [facility] [address] [address] 13 Jul, 2016 Cellulitis of other specified site L03.8 18 ; Illicit drug use F19.90 and Decubitus ulcer of left thigh, stage 2 L89.892 [facility] [address] [address] 08 Jul, 2016 [place] [address] [address] 06 Jul, 2016 Cellulitis of right breast N61.0 [facility] [address] [address] Jun, [facility] [address] [address] Jun, [facility] [address] [address] Jun, Wheezing R06.2 and Arthralgia, unspecifi ed joint M25.50 [facility] [address] [address] May, [facility] [address] [address] May, [facility] [address] [address] May, [facility] [address] [address] 05 May, 2016 Shortness of breath R06.02 [facility] [address] [address] 02 May, 2016 Onychomycosis B35.1 and Fissure in skin of foot R23.4 [facility] [address] [address] 28 Apr, [address] [facility] [address] [facility] [id number] [address] [place] [address] 18 Apr, 2016 Dizziness R42 [place] [address] [address] 14 Apr, 2016 Shortness of breath R06.02 ; Essential h ypertension I10 ; Dizziness R42 and On home oxygen therapy Z99.81 [facility] [address] [address] Apr, [place] [address] [address] 08 Apr, 2016 [facility] [address] [address] 07 Apr, 2016 [place] [address] [address] Apr, [facility] [address] [address] Apr, [facility] [address] [address] Apr, [facility] [address] [address] Apr, [facility] [address] [address] Mar, Mild chronic obstructive pulmonary disea se J44.9 [facility] [address] [address] Mar, [place] [address] [address] Mar, Epigastric pain R10.13 ; Low back pain M 54.5 ; Other chronic pain G89.29 and Breast cancer screening Z12.39 [place] [address] [address] Mar, [facility] [address] [address] Mar, [place] [address] [address] Feb, [place] [address] [address] Feb, [place] [address] [address] Feb, Fissure in skin of foot R23.4 and Onycho mycosis B35.1 [place] [address] [address] Jan, Agoraphobia F40.00 [place] [address] [address] Dec, Agoraphobia F40.00 [place] [address] [address] Dec, Mild persistent asthma without complicat ion J45.30 ; Dysthymic disorder F34.1 and Upper respiratory tract infection, unspecified type J06.9 [place] [address] [address] Nov, Agoraphobia F40.00 [place] [address] [address] October, Agoraphobia F40.00 [place] [address] [address] Sep, Panic disorder without agoraphobia F41.0 ; Agoraphobia F40.00 and Dysthymic disorder F34.1 [place] [address] [address] Sep, Panic attacks F41.0 [place] [address] [address] Sep, [place] [address] [address] Sep, Panic disorder without agoraphobia F41.0 ; Varicose veins of both lower extremities I83.93 and Fatigue R53.83 [place] [address] [address] Sep, Fatigue R53.83 [place] [address] [address] Sep, [place] [address] [address] Aug, [place] [address] [address] Aug, [place] [address] [address] Aug, Type 2 diabetes mellitus with diabetic n europathic arthropathy E11.610 [place] [address] [address] Aug, Panic disorder without agoraphobia F41.0 ; Agoraphobia F40.00 and Dysthymic disorder F34.1 [place] [address] [address] Aug, Shortness of breath R06.02 ; Panic attac ks F41.0 ; COPD (chronic obstructive pulmonary disease) J44.9 ; Tobacco abuse Z72.0 ; Family history of diabetes mellitus Z83.3 and Weight gain R63.5 [place] [address] [address] Aug, [place] [address] [address] Jul, [facility] [address] [address] Jun, Onychomycosis B35.1 ; Neuropathy G62.9 a nd Impaired circulation I99.9 [facility] [address] [address] Mar, Fissure in skin of foot R23.4 ; Onychomy cosis B35.1 and 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 [place] [address] [address] 18 Feb, 2015 Family history of coronary arteriosclero sis V17.3 [place] [address] [address] 15 Feb, 2015 Allergic rhinitis due to pollen 477.0 ; Unspecified breast screening V76.10 ; Anxiety 300.00 and Family history of coronary arteriosclerosis V17.3 [facility] [address] [address] Jan, [facility] [address] [address] Dec, [place] [address] [address] Dec, Onychomycosis 110.1 and Skin fissures 70 9.8 [facility] [address] [address] Sep, [facility] [address] [address] Sep, [facility] [address] [address] Aug, [facility] [address] [address] Aug, [facility] [address] [address] Jul, [facility] [address] [facility] [id number] [place] [address] Jul, [facility] [address] [id number] [place] [address] Jun, [facility] [address] [id number] [place] [address] Jun, [facility] [address] [id number] [place] [address] Jun, [facility] [address] [id number] [place] [address] Jun, [facility] [address] [id number] [place] [address] Jun, [facility] [address] [id number] [place] [address] May, [facility] [address] [id number] [place] [address] May, [facility] [address] [id number] [place] [address] May, [facility] [address] [id number] [place] [address] May, [facility] [address] [id number] [place] [address] May, [facility] [address] [id number] [place] [address] May, [facility] [address] [id number] [place] [address] May, [facility] [address] [id number] [place] [address] May, [facility] [address] [id number] [place] [address] Apr, [facility] [address] [id number] [place] [address] Apr, [facility] [address] [id number] [place] [address] Apr, [facility] [address] [id number] [place] [address] Apr, [facility] [address] [id number] [place] [address] Apr, [facility] [address] [id number] [place] [address] Apr, [facility] [address] [id number] [place] [address] Apr, [facility] [address] [id number] [place] [address] Apr, [facility] [address] [id number] [place] [address] Apr, [facility] [address] [id number] [place] [address] Apr, [facility] [address] [id number] [place] [address] Mar, [facility] [address] [id number] [place] [address] Mar, [facility] [address] [id number] [place] [address] Mar, [facility] [address] [id number] [place] [address] Mar, [facility] [address] [id number] [place] [address] Mar, [facility] [address] [id number] [place] [address] Mar, [facility] [id number] [place] [address] Mar, [facility] [place] [facility] [address] [facility] [id number] [place] [address] Mar, [facility] [place] [facility] [address] [facility] [id number] [place] [address] Mar, [facility] [place] [facility] [address] [facility] [id number] [place] [address] 23 Mar, 2013 [facility] [place] [facility] [address] [facility] [id number] [place] [address] 23 Mar, 2013 [facility] [place] [facility] [address] [facility] [id number] [place] [address] Mar, 2013 [facility] [place] [facility] [address] [id number] [place] [address] 22 Mar, 2014 [facility] [place] [facility] [address] [facility] [id number] [place] [address] Mar, 2013 [facility] [place] [facility] [address] [facility] [id number] [place] [address] 22 Mar, 2013 [facility] [place] [facility] [address] [id number] [place] [address] 20 Mar, 2013 [facility] [place] [facility] [address] [id number] [place] [address] 20 Mar, 2013 [facility] [place] [facility] [address] [id number] [place] [address] 16 Mar, 2013 [facility] [place] [facility] [address] [id number] [place] [address] 16 Mar, 2013 [facility] [place] [facility] [address] [id number] [place] [address] 15 Mar, 2013 [facility] [place] [facility] [address] [id number] [place] [address] 14 Mar, 2013 [facility] [place] [facility] [address] [id number] [place] [address] 14 Mar, 2013 [facility] [place] [facility] [address] [facility] [id number] [place] [address] 14 Mar, 2013 [facility] [place] [facility] [address] [id number] [place] [address] 14 Mar, 2013 [facility] [place] [facility] [address] [id number] [place] [address] 09 Mar, 2013 [facility] [place] [facility] [address] [id number] [place] [address] Mar, 2013 [facility] [place] [facility] [address] [facility] [id number] [place] [address] Mar, 2013 [facility] [place] [facility] [address] [facility] [id number] [place] [address] Mar, 2013 [facility] [place] [facility] [address] [id number] [place] [address] Feb, 2013 [facility] [place] [facility] [address] [id number] [place] [address] Feb, 2013 [facility] [place] [facility] [address] [facility] [id number] [place] [address] Feb, 2013 [facility] [place] [facility] [address] [id number] [place] [address] Feb, 2013 [facility] [place] [facility] [address] [id number] [place] [address] Feb, 2013 [facility] [place] [facility] [address] [id number] [place] [address] Feb, 2013 [facility] [place] [facility] [address] [id number] [place] [address] Feb, 2013 [facility] [place] [facility] [address] [id number] [place] [address] Feb, 2013 [facility] [place] [facility] [address] [facility] [id number] [place] [address] Feb, 2013 [facility] [place] [facility] [address] [id number] [place] [address] Feb, 2013 [facility] [place] [facility] [address] [facility] [id number] [place] [address] Feb, 2013 [facility] [place] [facility] [address] [facility] [id number] [place] [address] Feb, 2013 [facility] [place] [facility] [address] [facility] [id number] [place] [address] Jan, [facility] [place] [facility] [address] [id number] [place] [address] Jan, [facility] [place] [facility] [address] [facility] [id number] [place] [address] Jan, [facility] [place] [facility] [address] [id number] [place] [address] Jan, [facility] [place] [facility] [address] [facility] [id number] [place] [address] Jan, [facility] [place] [facility] [address] [id number] [place] [address] Jan, [facility] [place] [facility] [address] [id number] [place] [address] Jan, [facility] [place] [facility] [address] [id number] [place] [address] Jan, [facility] [place] [facility] [address] [id number] [place] [address] Jan, [facility] [place] [facility] [address] [facility] [id number] [place] [address] Jan, [facility] [place] [facility] [address] [facility] [id number] [place] [address] Jan, [facility] [place] [facility] [address] [id number] [place] [address] Jan, [facility] [place] [facility] [address] [facility] [id number] [place] [address] Jan, [facility] [place] [facility] [address] [facility] [id number] [place] [address] Dec, [facility] [place] [facility] [address] [facility] [id number] [place] [address] Dec, [facility] [place] [facility] [address] [id number] [place] [address] Dec, [facility] [place] [facility] [address] [id number] [place] [address] Dec, [facility] [place] [facility] [address] [facility] [id number] [place] [address] Dec, [facility] [place] [facility] [address] [facility] [id number] [place] [address] Dec, [facility] [place] [facility] [address] [id number] [place] [address] Dec, 2013 [facility] [place] [facility] [address] [facility] [id number] [place] [address] Dec, 2013 [facility] [place] [facility] [address] [facility] [id number] [place] [address] Dec, 2013 [facility] [place] [facility] [address] [id number] [place] [address] Dec, 2013 [facility] [place] [facility] [address] [facility] [id number] [place] [address] Dec, 2013 [facility] [place] [facility] [address] [facility] [id number] [place] [address] Dec, 2013 [facility] [place] [facility] [address] [facility] [id number] [place] [address] Dec, 2013 [facility] [place] [facility] [address] [facility] [id number] [place] [address] Dec, 2013 [facility] [place] [facility] [address] [facility] [id number] [place] [address] Dec, 2013 [facility] [place] [facility] [address] [facility] [id number] [place] [address] Dec, 2013 [facility] [place] [facility] [address] [facility] [id number] [place] [address] Dec, [facility] [place] [facility] [address] [facility] [id number] [place] [address] Dec, 2013 [facility] [place] [facility] [address] [facility] [id number] [place] [address] Nov, [facility] [place] [facility] [address] [facility] [id number] [place] [address] Nov, [facility] [place] [facility] [address] [facility] [id number] [place] [address] Nov, [facility] [place] [facility] [address] [facility] [id number] [place] [address] Nov, [facility] [place] [facility] [address] [facility] [id number] [place] [address] Nov, [facility] [place] [facility] [address] [facility] [id number] [place] [address] Nov, [facility] [place] [facility] [address] [facility] [id number] [place] [address] Nov, [facility] [place] [facility] [address] [facility] [id number] [place] [address] Nov, [facility] [place] [facility] [address] [facility] [id number] [place] [address] Nov, [facility] [place] [facility] [address] [facility] [id number] [place] [address] Nov, [facility] [place] [facility] [address] [facility] [id number] [place] [address] Nov, [facility] [place] [facility] [address] [facility] [id number] [place] [address] Nov, [facility] [place] [facility] [address] [facility] [id number] [place] [address] Nov, [facility] [place] [facility] [address] [facility] [id number] [place] [address] Nov, [facility] [place] [facility] [address] [facility] [id number] [place] [address] Nov, [facility] [place] [facility] [address] [facility] [id number] [place] [address] Nov, [facility] [place] [facility] [address] [facility] [id number] [place] [address] Nov, [facility] [place] [facility] [address] [facility] [id number] [place] [address] Nov, [facility] [place] [facility] [address] [facility] [id number] [place] [address] Nov, [facility] [place] [facility] [address] [facility] [id number] [place] [address] Nov, [facility] [place] [facility] [address] [facility] [id number] [place] [address] October, [facility] [place] [facility] [address] [id number] [place] [address] October, [facility] [place] [facility] [address] [id number] [place] [address] October, [facility] [place] [facility] [address] [id number] [place] [address] October, [facility] [place] [facility] [address] [facility] [id number] [place] [address] Sep, [facility] [place] [facility] [address] [facility] [id number] [place] [address] Sep, [facility] [place] [facility] [address] [facility] [id number] [place] [address] Sep, [facility] [place] [facility] [address] [facility] [id number] [place] [address] Sep, [facility] [place] [facility] [address] [facility] [id number] [place] [address] Sep, [facility] [place] [facility] [address] [facility] [id number] [place] [address] Sep, [facility] [place] [facility] [address] [facility] [id number] [place] [address] Sep, [facility] [place] [facility] [address] [facility] [id number] [place] [address] Sep, [facility] [place] [facility] [address] [facility] [id number] [place] [address] Sep, [facility] [place] [facility] [address] [facility] [id number] [place] [address] Aug, [facility] [place] [facility] [address] [facility] [id number] [place] [address] Aug, [facility] [place] [facility] [address] [facility] [id number] [place] [address] Aug, [facility] [place] [facility] [address] [facility] [id number] [place] [address] Aug, [facility] [place] [facility] [address] [facility] [id number] [place] [address] Aug, [facility] [place] [facility] [address] [facility] [id number] [place] [address] Aug, [facility] [place] [facility] [address] [facility] [id number] [place] [address] Aug, [facility] [place] [facility] [address] [id number] [place] [address] Aug, [facility] [place] [facility] [address] [id number] [place] [address] Jul, [facility] [place] [facility] [address] [facility] [id number] [place] [address] Jul, [facility] [place] [facility] [address] [facility] [id number] [place] [address] Jun, [facility] [place] [facility] [address] [id number] [place] [address] Jun, [facility] [place] [facility] [address] [id number] [place] [address] Jun, [facility] [place] [facility] [address] [id number] [place] [address] Jun, [facility] [place] [facility] [address] [id number] [place] [address] Jun, [facility] [place] [facility] [address] [id number] [place] [address] Jun, [facility] [place] [facility] [address] [id number] [place] [address] Jun, [facility] [place] [facility] [address] [id number] [place] [address] Jun, [facility] [place] [facility] [address] [id number] [place] [address] Jun, [facility] [place] [facility] [address] [id number] [place] [address] Jun, [facility] [place] [facility] [address] [facility] [id number] [place] [address] Jun, [facility] [place] [facility] [address] [facility] [id number] [place] [address] Jun, [facility] [place] [facility] [address] [facility] [id number] [place] [address] May, [facility] [place] [facility] [address] [facility] [id number] [place] [address] May, [facility] [place] [facility] [address] [facility] [id number] [place] [address] May, [facility] [place] [facility] [address] [id number] [place] [address] May, [facility] [place] [facility] [address] [id number] [place] [address] May, [facility] [place] [facility] [address] [id number] [place] [address] May, [facility] [place] [facility] [address] [id number] [place] [address] May, [facility] [place] [facility] [address] [id number] [place] [address] May, [facility] [place] [facility] [address] [id number] [place] [address] May, [facility] [place] [facility] [address] [id number] [place] [address] May, [facility] [place] [facility] [address] [id number] [place] [address] May, [facility] [place] [facility] [address] [id number] [place] [address] May, [facility] [place] [facility] [address] [id number] [place] [address] May, [facility] [place] [facility] [address] [id number] [place] [address] Apr, [facility] [place] [facility] [address] [id number] [place] [address] Apr, [facility] [place] [facility] [address] [id number] [place] [address] Mar, [facility] [place] [facility] [address] [id number] [place] [address] Mar, [facility] [place] [facility] [address] [id number] [place] [address] Feb, [facility] [place] [facility] [address] [id number] [place] [address] Feb, [facility] [place] [facility] [address] [id number] [place] [address] Feb, [facility] [place] [facility] [address] [id number] [place] [address] Feb, [facility] [place] [facility] [address] [id number] [place] [address] Jan, [facility] [place] [facility] [address] [id number] [place] [address] Jan, [facility] [place] [facility] [address] [id number] [place] [address] Jan, [facility] [place] [facility] [address] [id number] [place] [address] Jan, [facility] [place] [facility] [address] [id number] [place] [address] Jan, [facility] [place] [facility] [address] [id number] [place] [address] Jan, [facility] [place] [facility] [address] [id number] [place] [address] Dec, [facility] [place] [facility] [address] [id number] [place] [address] Dec, [facility] [place] [facility] [address] [id number] [place] [address] Dec, [facility] [place] [facility] [address] [id number] [place] [address] Dec, [facility] [place] [facility] [address] [id number] [place] [address] Nov, [facility] [place] [facility] [address] [id number] [place] [address] October, [facility] [place] [facility] [address] [id number] [place] [address] October, [facility] [place] [facility] [address] [id number] [place] [address] October, [facility] [place] [facility] [address] [id number] [place] [address] Sep, [facility] [place] [facility] [address] [id number] [place] [address] Sep, [facility] [place] [facility] [address] [id number] [place] [address] Jun, [facility] [place] [facility] [address] [id number] [place] [address] Jun, [facility] [place] [facility] [address] [id number] [place] [address] Jun, [facility] [place] [facility] [id number] [place] [address] Apr, [facility] [place] [facility] [address] [id number] [place] [address] Apr, [facility] [place] [facility] [address] [id number] [place] [address] Apr, [facility] [place] [facility] [address] [id number] [place] [address] Apr, [facility] [place] [facility] [address] [id number] [place] [address] Mar, [facility] [place] [facility] [address] [id number] [place] [address] Mar, [facility] [place] [facility] [address] [id number] [place] [address] Mar, [facility] [place] [facility] [address] [id number] [place] [address] Mar, [facility] [place] [facility] [address] [id number] [place] [address] Feb, [facility] [place] [facility] [address] [id number] [place] [address] 27 Feb, 2012 [facility] [place] [facility] [address] [id number] [place] [address] Feb, [facility] [place] [facility] [address] [id number] [place] [address] Jan, [facility] [place] [facility] [address] [id number] [place] [address] Jan, [facility] [place] [facility] [address] [id number] [place] [address] Jan, [facility] [place] [facility] [address] [id number] [place] [address] Jan, [facility] [place] [facility] [address] [id number] [place] [address] Dec, [facility] [place] [facility] [address] [id number] [place] [address] Dec, [facility] [place] [facility] [address] [id number] [place] [address] Nov, [facility] [place] [facility] [address] [id number] [place] [address] Nov, [facility] [place] [facility] [address] [id number] [place] [address] October, [facility] [place] [facility] [address] [id number] [place] [address] October, [facility] [place] [facility] [address] [id number] [place] [address] October, [facility] [place] [facility] [address] [id number] [place] [address] Sep, [facility] [place] [facility] [address] [id number] [place] [address] Sep, [facility] [place] [facility] [address] [id number] [place] [address] Sep, [facility] [place] [facility] [address] [id number] [place] [address] Aug, [facility] [place] [facility] [address] [id number] [place] [address] 26 Aug, 2011 [facility] [place] [facility] [address] [id number] [place] [address] 15 Aug, 2011 [facility] [place] [facility] [address] [id number] [place] [address] 15 Aug, 2011 [facility] [place] [facility] [address] [id number] [place] [address] Aug, [facility] [place] [facility] [address] [id number] [place] [address] 23 Jul, 2011 [facility] [place] [facility] [address] [id number] [place] [address] 16 Jul, 2011 [facility] [place] [facility] [address] [id number] [place] [address] 13 Jul, 2011 [facility] [place] [facility] [id number] [place] [address] Jul, [facility] [address] [id number] [place] [address] Jul, [facility] [address] [id number] [place] [address] Jul, [facility] [address] [id number] [place] [address] Jul, [facility] [address] [id number] [place] [address] Jul, [facility] [address] [id number] [place] [address] Jun, [facility] [address] [id number] [place] [address] Jun, [facility] [id number] [place] [address] May, [facility] [address] [id number] [place] [address] May, [facility] [address] [id number] [place] [address] 08 May, 2011 [facility] [address] [id number] [place] [address] 08 May, 2011 [facility] [address] [id number] [place] [address] Apr, [facility] [address] [id number] [place] [address] Apr, [facility] [address] [id number] [place] [address] Apr, [facility] [address] [id number] [place] [address] Mar, [facility] [address] [id number] [place] [address] Mar, [facility] [address] [id number] [place] [address] Mar, [facility] [address] [id number] [place] [address] Mar, [facility] [address] [id number] [place] [address] Dec, [facility] [address] [id number] [place] [address] October, [facility] [address] [id number] [place] [address] May, [facility] [address] [id number] [place] [address] May, [facility] [address] [id number] [place] [address] May, [facility] [address] [id number] [place] [address] May, [facility] [address] [id number] [place] [address] Mar, [facility] [address] [id number] [place] [address] Mar, [facility] [address] [id number] [place] [address] May, [facility] [address] [id number] [place] [address] May, [facility] [address] [id number] [place] [address] May, [facility] [address] [id number] [place] [address] May, [facility] [address] [id number] [place] [address] Apr, [facility] [id number] [place] [address] Apr, [facility] [address] [id number] [place] [address] October, IMMUNIZATIONS No Known Immunizations SOCIAL HISTORY [...]
--- OUTSIDE RECORDS SUMMARY | 2020-01-13 12:19 | XMS REPORT ---
Author Author Monique Cobos Doctor Organization [facility] Address Unknown Phone Unavailable Care Team Providers Care Lock Up Worker Name Role Phone Migration, Doctor Unavailable Unavailable PROBLEMS Type Condition ICD9-CM Code [id number] Code Onset Dates Condition S tatus SNOMED Code Problem Panic disorder without agoraphobia F41.0 Active 37830509 Problem Agoraphobia F40.00 Active 82593847 Problem Fatigue R53.83 Active 85311770 Problem Varicose veins of both lower extremities I83.93 Active 78499766 Problem Mild chronic obstructive pulmonary disease J44.9 Active 348212647 Problem Mild persistent asthma without complication J45.30 Active 098508837 Problem Essential hypertension I10 Active 15370083 Problem Snoring R06.83 Active 38454903 Problem On home oxygen therapy Z99.81 Active 645041841251 Problem MRSA (methicillin resistant staph aureus) culture positive Z22.322 Active 102006998 Problem Major depressive disorder, recurrent episode, moderate F33.1 Active 511343708 Problem 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 Active 789225732 Problem Arthritis M19.90 Active 6631883 Problem Major depressive disorder in full remission F32.5 Active 58669846 Problem Social phobia F40.10 Active 140309 02 Problem Impaired circulation I99.9 Active 29955011 Problem Slow transit constipation K59.01 Acti ve 75554765 Problem Neuropathy G62.9 Active 963402092 Problem History of illicit drug use Z87.898 Ac tive 035784180 Problem Dysthymic disorder F34.1 Active 7 1653391 Problem Mood disorder F39 Active 429319 05 Problem Psychotic disorder F29 Active 6 4257525 Problem Hypertension, benign I10 Active 95495916 Problem Onychomycosis B35.1 Active 496413 008 ALLERGIES No Information ENCOUNTERS Encounter Location Date Diagnosis [facility] [address] [id number] [place] [address] Aug, [facility] [id number] [place] [address] Jul, [facility] [address] [address] Jul, [facility] [address] [address] May, Morbid obesity E66.01 [place] [address] [address] May, Encounter for immunization Z23 [place] [address] [address] May, Major depressive disorder, recurrent epi sode, moderate F33.1 ; Panic disorder without agoraphobia F41.0 and Morbid obesity E66.01 [place] [address] [address] May, Major depressive disorder in full remiss ion F32.5 and Panic disorder without agoraphobia F41.0 [place] [address] [address] Apr, Morbid obesity E66.01 [place] [address] [address] Apr, Slow transit constipation K59.01 and Lois lulitis of left lower extremity L03.116 [place] [address] [address] Apr, Morbid obesity E66.01 [place] [address] [address] Apr, [place] [address] [address] Apr, Major depressive disorder, recurrent epi sode, moderate F33.1 and Panic disorder without agoraphobia F41.0 [place] [address] [address] Mar, Viral upper respiratory tract infection J06.9 [place] [address] [address] Mar, Bronchitis J40 and Encounter for immuniz ation Z23 [address] [address] 08 Mar, 2019 Morbid obesity E66.[address] [address] Feb, Major depressive disorder, recurrent epi sode, moderate F33.1 and Panic disorder without agoraphobia F41.0 [place] [address] [address] Feb, Morbid obesity E66.[address] [address] Feb, Onychomycosis B35.1 ; Type 2 diabetes me llitus with diabetic neuropathic arthropathy E11.610 and Xerosis of skin L85.[address] [address] Feb, Major depressive disorder, recurrent epi sode, moderate F33.1 ; Panic disorder without agoraphobia F41.0 and Morbid obesity E66.[address] [address] Jan, Major depressive disorder in full remiss ion F32.5 and Panic disorder without agoraphobia F41.[address] [address] Jan, Pneumonia of both lower lobes due to inf ectious organism J18.1 and Morbid obesity E66.01 [place] [address] [address] Jan, [address] [address] Jan, Major depressive disorder in full remiss ion F32.5 and Panic disorder without agoraphobia F41.[address] [address] Jan, [place] [address] [address] Jan, Major depressive disorder, recurrent epi sode, moderate F33.1 ; Panic disorder without agoraphobia F41.0 and Morbid obesity E66.01 [place] [address] [address] Dec, Bilious vomiting with nausea R11.14 ; Co ughing R05 and Choking, subsequent encounter T17.308D [place] [address] [address] Dec, Morbid obesity E66.01 [place] [address] [address] Dec, Major depressive disorder, recurrent epi sode, moderate F33.1 and Panic disorder without agoraphobia F41.0 [place] [address] [address] Dec, [place] [address] [address] Dec, Major depressive disorder, recurrent epi sode, moderate F33.1 [place] [address] [address] Nov, Major depressive disorder, recurrent epi sode, moderate F33.1 ; Panic disorder without agoraphobia F41.0 and Morbid obesity E66.01 [place] [address] [address] Nov, Morbid obesity E66.01 [place] [address] [address] Nov, Major depressive disorder, recurrent epi sode, moderate F33.1 and Panic disorder without agoraphobia F41.0 [facility] [address] [facility] [id number] [address] [place] [address] Nov, Allergic reaction, initial e ncounter T78.40XA and Morbid obesity E66.01 [facility] [id number] [place] [address] Nov, [place] [address] [address] Nov, Morbid obesity E66.01 ; Swallowing probl em R13.10 and Hypertension, benign I10 [facility] [id number] [address] Nov, Morbid obesity E66.01 ; COPD exacerbation J44.1 and Non- recurrent acute suppurative otitis media of left ear without spontaneous rupture of tympanic membrane H66.002 [place] [address] [address] 07 Nov, 2018 Onychomycosis B35.1 ; Neuropathy G62.9 a nd Fissure in skin of foot R23.4 [place] [address] [address] October, Major depressive disorder, recurrent epi sode, moderate F33.1 ; Panic disorder without agoraphobia F41.0 and Morbid obesity E66.01 [facility] [id number] [place] [address] October, Viral upper respiratory trac t infection J06.9 [place] [id number] [place] [address] October, [place] [address] [address] October, Major depressive disorder, recurrent epi sode, moderate F33.1 and Panic disorder without agoraphobia F41.0 [place] [address] [address] October, [place] [address] [address] October, [facility] [address] [address] October, [place] [address] [address] October, [facility] [address] [address] October, [facility] [address] [address] October, [facility] [address] [address] October, Major depressive disorder, recurrent epi sode, moderate F33.1 and Panic disorder without agoraphobia F41.0 [place] [address] [address] Sep, Morbid obesity E66.01 and Lumbar neuriti s M54.16 [place] [address] [address] Sep, Panic disorder without agoraphobia F41.0 and Major depressive disorder, recurrent episode, moderate F33.1 [facility] [address] [facility] [id number] [place] [address] Sep, Gastroenteritis K52.9 ; Low back pain M54.5 ; Other chronic pain G89.29 and Morbid obesity E66.01 [place] [address] [address] Sep, Major depressive disorder, recurrent epi sode, moderate F33.1 ; Panic disorder without agoraphobia F41.0 and Social phobia F40.10 [place] [address] [address] Sep, Panic disorder without agoraphobia F41.0 [facility] [address] [address] Sep, Panic disorder without agoraphobia F41.0 [facility] [address] [address] Aug, Panic disorder without agoraphobia F41.0 ; Major depressive disorder, recurrent episode, moderate F33.1 ; Social phobia F40.10 ; Psychotic disorder F29 ; Tardive dyskinesia G24.01 and Morbid obesity E66.01 [place] [address] [address] Aug, Dysthymic disorder F34.1 and Psychotic d isorder F29 [place] [address] [address] Aug, Encounter for Medicare annual wellness e xam Z00.00 ; Morbid obesity E66.01 and Type 2 diabetes mellitus with diabetic neuropathic arthropathy E11.610 [place] [address] [address] Aug, Dysthymic disorder F34.1 and Psychotic d isorder F29 [place] [address] [address] Aug, Neuropathy G62.9 ; Onychomycosis B35.1 a nd Xerosis of skin L85.3 [place] [address] [address] Jul, [address] [address] Jul, Mood disorder F39 ; Wheezing R06.2 ; Diego sanchez, initial encounter T17.308A and Coughing R05 [place] [address] [address] Jul, Low back pain M54.5 [facility] [address] [facility] [id number] [place] [address] Jun, Flu-like symptoms R68.89 ; B W[place] 45.0-49.9, adult Z68.42 ; COPD exacerbation J44.1 and Acute bronchitis J20.9 [place] [address] [address] Jun, [place] [address] [address] May, [place] [address] [address] May, Onychomycosis B35.1 and Type 2 diabetes mellitus with diabetic neuropathic arthropathy E11.610 [place] [address] [address] May, Low back pain M54.5 and Edema leg R60.[address] [address] May, BMI 45.0-49.9, adult Z68.42 ; Well woman exam with routine gynecological exam Z01.419 and Breast cancer screening Z12.[address] [address] Apr, Arthritis M19.[address] [address] 16 Apr, 2018 Arthritis M19.90 and Otalgia of both ear s H92.03 [place] [address] [address] Feb, [place] [address] [address] 28 Feb, 2018 Low back pain M54.5 ; Other chronic pain G89.29 ; Exertional asthma J45.990 and Encounter for immunization Z23 [address] [address] Feb, Skin fissures R23.4 ; Neuropathy G62.9 a nd Onychomycosis B35.1 [place] [address] [address] 05 Feb, 2018 Dysthymic disorder F34.1 [place] [address] [address] Feb, [place] [address] [address] Jan, [place] [address] [address] Jan, Abrasion of right elbow, initial encount er S50.311A ; Abrasion, right knee, initial encounter S80.211A and Sprain of other ligament of right ankle, initial encounter S93.491A [facility] [address] [address] Jan, [facility] [address] [facility] [id number] [address] [place] [address] Jan, Injury of left ankle, initia l encounter S99.912A ; Fall down stairs, initial encounter W10.8XXA and BMI 45.0-49.9, adult Z68.42 [place] [address] [address] Jan, COPD exacerbation J44.1 [place] [address] [address] Jan, Dysfunction of both eustachian tubes H69 .83 [place] [address] [address] Jan, Bronchitis J40 and Acute suppurative giovana tis media of left ear without spontaneous rupture of tympanic membrane, recurrence not specified H66.002 [place] [address] [address] Jan, [place] [address] [address] Jan, Bronchitis J40 and BMI 40.0-44.9, adult Z68.41 [place] [address] [address] Jan, [place] [address] [address] Dec, Gastric pain R10.9 [place] [address] [address] Dec, [place] [address] [address] Dec, History of illicit drug use Z87.898 ; Ne uropathy G62.9 ; COPD (chronic obstructive pulmonary disease) with chronic bronchitis J44.9 and Acute pain of right knee M25.561 [place] [address] [address] 30 Nov, 2017 [place] [address] [address] 15 Nov, 2017 Onychomycosis B35.1 and Contusion of lef t foot, subsequent encounter S90.32XD [place] [address] [address] Nov, COPD exacerbation J44.1 [place] [address] [address] Sep, [place] [address] [address] Sep, Dysthymic disorder F34.1 ; Tobacco abuse Z72.0 ; Pain in right knee M25.561 ; Pain in left knee M25.562 ; Other chronic pain G89.29 and BMI 40.0- 44.9, adult Z68.41 [place] [address] [address] Aug, Major depressive disorder, recurrent epi sode, moderate F33.1 and Social phobia F40.[address] [address] Aug, Dysthymic disorder F34.1 ; Non-pressure chronic ulcer of left thigh, unspecified ulcer stage L97.129 ; Tobacco abuse Z72.0 ; Mild chronic obstructive pulmonary disease J44.9 and Forgetfulness R68.89 [place] [address] [address] 09 Aug, 2017 Onychomycosis B35.1 ; Fissure in skin of foot R23.4 and Foot callus L84 [facility] [address] [facility] [id number] [address] [place] [address] Jul, Right medial knee pain M25.5 61 ; Upper respiratory tract infection, unspecified type J06.9 and BMI 40.0-44.9, adult Z68.41 [facility] [address] [facility] [id number] [address] [place] [address] Jul, Nausea and vomiting, intract ability of vomiting not specified, unspecified vomiting type R11.2 ; Left ear pain H92.02 and Gastric pain R10.9 [place] [address] [address] Apr, Encounter for immunization Z23 [place] [address] [address] Apr, Onychomycosis B35.1 ; Xerosis of skin L8 5.3 ; Neuropathy G62.9 and 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 [place] [address] [address] Jan, Onychomycosis B35.1 and Neuropathy G62.9 [facility] [address] [address] Dec, [place] [address] [address] Dec, [facility] [address] [address] Nov, [place] [address] [address] Aug, [facility] [address] [address] Aug, [place] [address] [address] Jul, [place] [address] [address] Jul, [place] [address] [address] Jul, Decubitus ulcer of left thigh, stage 2 L 89.892 [facility] [address] [address] 17 Jul, 2016 Decubitus ulcer of left thigh, stage 2 L 89.892 [facility] [address] [address] 17 Jul, 2016 [facility] [address] [address] 15 Jul, 2016 Decubitus ulcer of left thigh, stage 2 L 89.892 [facility] [address] [address] 14 Jul, 2016 [facility] [address] [address] 13 Jul, 2016 Cellulitis of other specified site L03.8 18 ; Illicit drug use F19.90 and Decubitus ulcer of left thigh, stage 2 L89.892 [facility] [address] [address] 08 Jul, 2016 [facility] [address] [address] 06 Jul, 2016 Cellulitis of right breast N61.0 [place] [address] [address] Jun, [facility] [address] [address] Jun, [place] [address] [address] Jun, Wheezing R06.2 and Arthralgia, unspecifi ed joint M25.50 [facility] [address] [address] May, [facility] [address] [address] May, [facility] [address] [address] May, [facility] [address] [address] 05 May, 2016 Shortness of breath R06.02 [facility] [address] [address] May, Onychomycosis B35.1 and Fissure in skin of foot R23.4 [place] [address] [address] Apr, [facility] [address] [facility] [id number] [address] [place] [address] 18 Apr, 2016 Dizziness R42 [place] [address] [address] 14 Apr, 2016 Shortness of breath R06.02 ; Essential h ypertension I10 ; Dizziness R42 and On home oxygen therapy Z99.81 [place] [address] [address] Apr, [facility] [address] [address] 08 Apr, 2016 [place] [address] [address] Apr, [facility] [address] [address] 04 Apr, 2016 [place] [address] [address] Apr, [facility] [address] [address] Apr, [facility] [address] [address] Apr, [place] [address] [address] Mar, Mild chronic obstructive pulmonary disea se J44.9 [facility] [address] [address] Mar, [place] [address] [address] Mar, Epigastric pain R10.13 ; Low back pain M 54.5 ; Other chronic pain G89.29 and Breast cancer screening Z12.39 [place] [address] [address] Mar, [place] [address] [address] Mar, [place] [address] [address] Feb, [place] [address] [address] Feb, [place] [address] [address] Feb, Fissure in skin of foot R23.4 and Onycho mycosis B35.1 [place] [address] [address] Jan, Agoraphobia F40.00 [place] [address] [address] Dec, Agoraphobia F40.00 [place] [address] [address] Dec, Mild persistent asthma without complicat ion J45.30 ; Dysthymic disorder F34.1 and Upper respiratory tract infection, unspecified type J06.9 [place] [address] [address] Nov, Agoraphobia F40.00 [place] [address] [address] October, Agoraphobia F40.00 [place] [address] [address] Sep, Panic disorder without agoraphobia F41.0 ; Agoraphobia F40.00 and Dysthymic disorder F34.1 [place] [address] [address] Sep, Panic attacks F41.0 [place] [address] [address] Sep, [place] [address] [address] Sep, Panic disorder without agoraphobia F41.0 ; Varicose veins of both lower extremities I83.93 and Fatigue R53.83 [place] [address] [address] Sep, Fatigue R53.83 [place] [address] [address] Sep, [place] [address] [address] Aug, [place] [address] [address] Aug, [place] [address] [address] Aug, Panic disorder without agoraphobia F41.0 ; Agoraphobia F40.00 and Dysthymic disorder F34.1 [place] [address] [address] Aug, Type 2 diabetes mellitus with diabetic n europathic arthropathy E11.610 [place] [address] [address] Aug, Shortness of breath R06.02 ; Panic attac ks F41.0 ; COPD (chronic obstructive pulmonary disease) J44.9 ; Tobacco abuse Z72.0 ; Family history of diabetes mellitus Z83.3 and Weight gain R63.5 [place] [address] [address] Aug, [place] [address] [address] Jul, [place] [address] [address] 08 Jun, 2015 Onychomycosis B35.1 ; Neuropathy G62.9 a nd Impaired circulation I99.9 [place] [address] [address] 09 Mar, 2015 Fissure in skin of foot R23.4 ; Onychomy cosis B35.1 and Type 2 diabetes mellitus with diabetic neuropathic arthropathy E11.610 [place] [address] [address] 18 Feb, 2015 Family history of coronary arteriosclero sis V17.3 [place] [address] [address] Feb, Allergic rhinitis due to pollen 477.0 ; Unspecified breast screening V76.10 ; Anxiety 300.00 and Family history of coronary arteriosclerosis V17.3 [place] [address] [address] Jan, [place] [address] [address] Dec, [place] [address] [address] Dec, Onychomycosis 110.1 and Skin fissures 70 9.8 [place] [address] [address] Sep, [place] [address] [address] Sep, [place] [address] [address] Aug, [place] [address] [address] Aug, [place] [address] [address] Jul, [place] [address] [address] Jul, [facility] [address] [id number] [place] [address] Jun, [facility] [address] [id number] [place] [address] Jun, [facility] [address] [id number] [place] [address] Jun, [facility] [address] [id number] [place] [address] Jun, [facility] [address] [id number] [place] [address] Jun, [facility] [address] [id number] [place] [address] May, [facility] [address] [id number] [place] [address] May, [facility] [address] [id number] [place] [address] May, [facility] [address] [id number] [place] [address] May, [facility] [address] [id number] [place] [address] May, [facility] [address] [id number] [place] [address] May, [facility] [address] [id number] [place] [address] May, [facility] [address] [id number] [place] [address] May, [facility] [address] [id number] [place] [address] Apr, [facility] [address] [id number] [place] [address] Apr, [facility] [address] [id number] [place] [address] Apr, [facility] [address] [id number] [place] [address] Apr, [facility] [address] [id number] [place] [address] Apr, [facility] [address] [id number] [place] [address] Apr, [facility] [address] [id number] [place] [address] Apr, [facility] [address] [id number] [place] [address] Apr, [facility] [address] [id number] [place] [address] Apr, [facility] [address] [id number] [place] [address] Apr, [facility] [address] [id number] [place] [address] Mar, [facility] [address] [id number] [place] [address] Mar, [facility] [address] [id number] [place] [address] Mar, [facility] [address] [id number] [place] [address] Mar, [facility] [address] [id number] [place] [address] Mar, [facility] [address] [id number] [place] [address] Mar, [facility] [address] [id number] [place] [address] Mar, [facility] [id number] [place] [address] Mar, [facility] [address] [id number] [place] [address] Mar, [facility] [address] [id number] [place] [address] Mar, [facility] [address] [facility] [id number] [place] [address] 23 Mar, 2013 [facility] [address] [facility] [id number] [place] [address] Mar, 2013 [facility] [address] [id number] [place] [address] 22 Mar, 2013 [facility] [address] [id number] [place] [address] 22 Mar, 2013 [facility] [place] [facility] [address] [facility] [id number] [place] [address] 22 Mar, 2013 [facility] [place] [facility] [address] [facility] [id number] [place] [address] 20 Mar, 2014 [facility] [place] [facility] [address] [id number] [place] [address] 20 Mar, 2013 [facility] [place] [facility] [address] [id number] [place] [address] 16 Mar, 2013 [facility] [place] [facility] [address] [id number] [place] [address] 16 Mar, 2013 [facility] [place] [facility] [address] [id number] [place] [address] 15 Mar, 2013 [facility] [place] [facility] [address] [id number] [place] [address] 14 Mar, 2013 [facility] [place] [facility] [address] [id number] [place] [address] 14 Mar, 2013 [facility] [place] [facility] [address] [id number] [place] [address] 14 Mar, 2013 [facility] [place] [facility] [address] [facility] [id number] [place] [address] 14 Mar, 2013 [facility] [place] [facility] [address] [id number] [place] [address] 09 Mar, 2013 [facility] [place] [facility] [address] [id number] [place] [address] 09 Mar, 2013 [facility] [place] [facility] [address] [id number] [place] [address] 09 Mar, 2013 [facility] [place] [facility] [address] [facility] [id number] [place] [address] Mar, 2013 [facility] [place] [facility] [address] [facility] [id number] [place] [address] 30 Feb, 2013 [facility] [place] [facility] [address] [id number] [place] [address] 30 Feb, 2013 [facility] [place] [facility] [address] [id number] [place] [address] 30 Feb, 2013 [facility] [place] [facility] [address] [facility] [id number] [place] [address] 30 Feb, 2013 [facility] [place] [facility] [address] [id number] [place] [address] Feb, 2013 [facility] [place] [facility] [address] [id number] [place] [address] Feb, 2013 [facility] [place] [facility] [address] [id number] [place] [address] Feb, 2013 [facility] [place] [facility] [address] [id number] [place] [address] Feb, 2013 [facility] [place] [facility] [address] [id number] [place] [address] Feb, 2013 [facility] [place] [facility] [address] [id number] [place] [address] Feb, 2013 [facility] [place] [facility] [address] [id number] [place] [address] Feb, 2013 [facility] [place] [facility] [address] [id number] [place] [address] Feb, 2013 [facility] [place] [facility] [address] [id number] [place] [address] Jan, [facility] [place] [facility] [address] [id number] [place] [address] Jan, [facility] [place] [facility] [address] [id number] [place] [address] Jan, [facility] [place] [facility] [address] [id number] [place] [address] Jan, [facility] [place] [facility] [address] [id number] [facility] [place] [address] Jan, [facility] [place] [facility] [address] [facility] [id number] [place] [address] Jan, [facility] [place] [facility] [address] [id number] [place] [address] Jan, [facility] [place] [facility] [address] [facility] [id number] [place] [address] Jan, [facility] [place] [facility] [address] [id number] [place] [address] Jan, [facility] [place] [facility] [address] [id number] [place] [address] Jan, [facility] [place] [facility] [address] [id number] [place] [address] Jan, [facility] [place] [facility] [address] [id number] [place] [address] Jan, [facility] [place] [facility] [address] [id number] [place] [address] Jan, [facility] [place] [facility] [address] [id number] [place] [address] Dec, [facility] [place] [facility] [address] [id number] [place] [address] Dec, [facility] [place] [facility] [address] [id number] [place] [address] Dec, [facility] [place] [facility] [address] [id number] [place] [address] Dec, [facility] [place] [facility] [address] [id number] [place] [address] Dec, [facility] [place] [facility] [address] [id number] [place] [address] Dec, [facility] [place] [facility] [address] [id number] [place] [address] Dec, [facility] [place] [facility] [address] [facility] [id number] [place] [address] Dec, 2013 [facility] [place] [facility] [address] [facility] [id number] [place] [address] Dec, 2013 [facility] [place] [facility] [address] [facility] [id number] [place] [address] Dec, 2013 [facility] [place] [facility] [address] [id number] [place] [address] Dec, 2013 [facility] [place] [facility] [address] [facility] [id number] [place] [address] Dec, 2013 [facility] [place] [facility] [address] [id number] [place] [address] Dec, 2013 [facility] [place] [facility] [address] [id number] [place] [address] Dec, 2013 [facility] [place] [facility] [address] [id number] [place] [address] Dec, 2013 [facility] [place] [facility] [address] [id number] [place] [address] Dec, 2013 [facility] [place] [facility] [address] [id number] [place] [address] Dec, 2013 [facility] [place] [facility] [address] [id number] [place] [address] Dec, 2013 [facility] [place] [facility] [address] [id number] [place] [address] Nov, [facility] [place] [facility] [address] [id number] [place] [address] Nov, [facility] [place] [facility] [address] [facility] [id number] [place] [address] Nov, [facility] [place] [facility] [address] [id number] [place] [address] Nov, [facility] [place] [facility] [address] [id number] [place] [address] Nov, [facility] [place] [facility] [address] [id number] [place] [address] Nov, [facility] [place] [facility] [address] [facility] [id number] [place] [address] Nov, [facility] [place] [facility] [address] [facility] [id number] [facility] [place] [address] Nov, [facility] [place] [facility] [address] [facility] [id number] [place] [address] Nov, [facility] [place] [facility] [address] [facility] [id number] [facility] [place] [address] Nov, [facility] [place] [facility] [address] [facility] [id number] [facility] [place] [address] Nov, [facility] [place] [facility] [address] [facility] [id number] [place] [address] Nov, [facility] [place] [facility] [address] [id number] [place] [address] Nov, [facility] [place] [facility] [address] [id number] [place] [address] Nov, [facility] [place] [facility] [address] [facility] [id number] [place] [address] Nov, [facility] [place] [facility] [address] [id number] [place] [address] Nov, [facility] [place] [facility] [address] [id number] [place] [address] Nov, [facility] [place] [facility] [address] [id number] [place] [address] Nov, [facility] [place] [facility] [address] [facility] [id number] [place] [address] Nov, [facility] [place] [facility] [address] [facility] [id number] [place] [address] Nov, [facility] [place] [facility] [address] [facility] [id number] [place] [address] October, [facility] [place] [facility] [address] [id number] [place] [address] October, [facility] [place] [facility] [address] [id number] [place] [address] October, [facility] [place] [facility] [address] [id number] [place] [address] October, [facility] [place] [facility] [address] [id number] [place] [address] Sep, [facility] [place] [facility] [address] [id number] [place] [address] Sep, [facility] [place] [facility] [address] [id number] [place] [address] Sep, [facility] [place] [facility] [address] [facility] [id number] [place] [address] Sep, [facility] [place] [facility] [address] [id number] [place] [address] Sep, [facility] [place] [facility] [address] [id number] [place] [address] Sep, [facility] [place] [facility] [address] [id number] [place] [address] Sep, [facility] [place] [facility] [address] [id number] [place] [address] Sep, [facility] [place] [facility] [address] [id number] [place] [address] Sep, [facility] [place] [facility] [address] [id number] [place] [address] Aug, [facility] [place] [facility] [address] [id number] [place] [address] Aug, [facility] [place] [facility] [address] [id number] [place] [address] Aug, [facility] [place] [facility] [address] [id number] [place] [address] Aug, [facility] [place] [facility] [address] [id number] [place] [address] Aug, [facility] [place] [facility] [address] [id number] [place] [address] Aug, [facility] [place] [facility] [address] [id number] [place] [address] Aug, [facility] [place] [facility] [address] [id number] [place] [address] Aug, [facility] [place] [facility] [address] [id number] [place] [address] Jul, [facility] [place] [facility] [address] [id number] [place] [address] Jul, [facility] [place] [facility] [address] [id number] [place] [address] Jun, [facility] [place] [facility] [address] [id number] [place] [address] Jun, [facility] [place] [facility] [address] [id number] [place] [address] Jun, [facility] [place] [facility] [address] [id number] [place] [address] Jun, [facility] [place] [facility] [address] [id number] [place] [address] Jun, [facility] [place] [facility] [address] [id number] [place] [address] Jun, [facility] [place] [facility] [address] [id number] [place] [address] Jun, [facility] [place] [facility] [address] [id number] [place] [address] Jun, [facility] [place] [facility] [address] [id number] [place] [address] Jun, [facility] [place] [facility] [address] [id number] [place] [address] Jun, [facility] [place] [facility] [address] [id number] [place] [address] Jun, [facility] [place] [facility] [address] [id number] [place] [address] Jun, [facility] [place] [facility] [address] [id number] [place] [address] May, [facility] [place] [facility] [address] [id number] [place] [address] May, [facility] [place] [facility] [address] [id number] [place] [address] May, [facility] [place] [facility] [address] [id number] [place] [address] May, [facility] [place] [facility] [address] [id number] [place] [address] May, [facility] [place] [facility] [address] [id number] [place] [address] May, [facility] [place] [facility] [address] [id number] [place] [address] May, [facility] [place] [facility] [address] [id number] [place] [address] May, [facility] [place] [facility] [address] [id number] [place] [address] May, [facility] [place] [facility] [address] [id number] [place] [address] May, [facility] [place] [facility] [address] [id number] [place] [address] May, [facility] [place] [facility] [address] [id number] [place] [address] May, [facility] [place] [facility] [address] [id number] [place] [address] May, [facility] [place] [facility] [address] [id number] [place] [address] Apr, [facility] [place] [facility] [address] [id number] [place] [address] Apr, [facility] [place] [facility] [address] [id number] [place] [address] Mar, [facility] [place] [facility] [address] [id number] [place] [address] Mar, [facility] [place] [facility] [address] [id number] [place] [address] Feb, [facility] [place] [facility] [address] [id number] [place] [address] Feb, [facility] [place] [facility] [address] [id number] [place] [address] Feb, [facility] [place] [facility] [address] [id number] [place] [address] Feb, [facility] [place] [facility] [address] [id number] [place] [address] Jan, [facility] [place] [facility] [address] [id number] [place] [address] Jan, [facility] [place] [facility] [address] [id number] [place] [address] Jan, [facility] [place] [facility] [address] [id number] [place] [address] Jan, [facility] [place] [facility] [address] [id number] [place] [address] Jan, [facility] [place] [facility] [address] [id number] [place] [address] Jan, [facility] [place] [facility] [address] [id number] [place] [address] Dec, [facility] [place] [facility] [address] [id number] [place] [address] Dec, [facility] [place] [facility] [address] [id number] [place] [address] Dec, [facility] [place] [facility] [address] [id number] [place] [address] Dec, [facility] [place] [facility] [address] [id number] [place] [address] Nov, [facility] [place] [facility] [address] [id number] [place] [address] October, [facility] [place] [facility] [address] [id number] [place] [address] October, [facility] [place] [facility] [address] [id number] [place] [address] October, [facility] [place] [facility] [address] [id number] [place] [address] Sep, [facility] [place] [facility] [address] [id number] [place] [address] Sep, [facility] [place] [facility] [address] [id number] [place] [address] Jun, [facility] [place] [facility] [address] [id number] [place] [address] Jun, [facility] [place] [facility] [address] [id number] [place] [address] Jun, [facility] [place] [facility] [address] [id number] [place] [address] Apr, [facility] [place] [facility] [address] [id number] [place] [address] Apr, [facility] [place] [facility] [address] [id number] [place] [address] Apr, [facility] [place] [facility] [address] [id number] [place] [address] Apr, [facility] [place] [facility] [address] [id number] [place] [address] Mar, [facility] [place] [facility] [address] [id number] [place] [address] Mar, [facility] [place] [facility] [address] [id number] [place] [address] Mar, [facility] [place] [facility] [address] [id number] [place] [address] Mar, [facility] [place] [facility] [address] [id number] [place] [address] 29 Feb, 2012 [facility] [place] [facility] [address] [id number] [place] [address] Feb, [facility] [place] [facility] [address] [id number] [place] [address] Feb, [facility] [place] [facility] [address] [id number] [place] [address] Jan, [facility] [place] [facility] [address] [id number] [place] [address] Jan, [facility] [place] [facility] [address] [id number] [place] [address] Jan, [facility] [place] [facility] [address] [id number] [place] [address] Jan, [facility] [place] [facility] [address] [id number] [place] [address] Dec, [facility] [place] [facility] [address] [id number] [place] [address] Dec, [facility] [place] [facility] [address] [id number] [place] [address] Nov, [facility] [place] [facility] [address] [id number] [place] [address] Nov, [facility] [place] [facility] [address] [id number] [place] [address] October, [facility] [place] [facility] [address] [id number] [place] [address] October, [facility] [place] [facility] [address] [id number] [place] [address] October, [facility] [place] [facility] [address] [id number] [place] [address] Sep, [facility] [place] [facility] [address] [id number] [place] [address] Sep, [facility] [place] [facility] [address] [id number] [place] [address] Sep, [facility] [place] [facility] [address] [id number] [place] [address] Aug, [facility] [place] [facility] [address] [id number] [place] [address] Aug, [facility] [place] [facility] [address] [id number] [place] [address] 15 Aug, 2011 [facility] [place] [facility] [address] [id number] [place] [address] 15 Aug, 2011 [facility] [place] [facility] [address] [id number] [place] [address] 07 Aug, 2011 [facility] [place] [facility] [address] [id number] [place] [address] 23 Jul, 2011 [facility] [place] [facility] [address] [id number] [place] [address] 16 Jul, 2011 [facility] [place] [facility] [address] [id number] [place] [address] 13 Jul, 2011 [facility] [place] [facility] [address] [id number] [place] [address] 09 Jul, 2011 [facility] [place] [facility] [id number] [place] [address] 07 Jul, 2011 [facility] [place] [facility] [id number] [place] [address] 06 Jul, 2011 [facility] [place] [facility] [address] [id number] [place] [address] 03 Jul, 2011 [facility] [address] [id number] [place] [address] Jul, [facility] [address] [id number] [place] [address] Jun, [facility] [address] [id number] [place] [address] Jun, [facility] [address] [id number] [place] [address] May, [facility] [address] [id number] [place] [address] May, [facility] [address] [id number] [place] [address] 08 May, 2011 [facility] [address] [id number] [place] [address] 08 May, 2011 [facility] [address] [id number] [place] [address] 30 Apr, 2011 [facility] [address] [id number] [place] [address] Apr, [facility] [address] [id number] [place] [address] Apr, [facility] [address] [id number] [place] [address] Mar, [facility] [address] [id number] [place] [address] Mar, [facility] [address] [id number] [place] [address] Mar, [facility] [address] [id number] [place] [address] Mar, [facility] [address] [id number] [place] [address] Dec, [facility] [address] [id number] [place] [address] October, [facility] [address] [id number] [place] [address] May, [facility] [address] [id number] [place] [address] May, [facility] [address] [id number] [place] [address] May, [facility] [address] [id number] [place] [address] May, [facility] [address] [id number] [place] [address] Mar, [facility] [address] [id number] [place] [address] Mar, [facility] [address] [id number] [place] [address] May, [facility] [address] [id number] [place] [address] May, [facility] [address] [id number] [place] [address] May, [facility] [address] [id number] [place] [address] May, [facility] [address] [id number] [place] [address] Apr, [facility] [address] [id number] [place] [address] Apr, [facility] [address] [id number] [place] [address] October, IMMUNIZATIONS No Known Immunizations SOCIAL HISTORY [...]
--- OUTSIDE RECORDS SUMMARY | 2020-01-13 12:19 | XMS REPORT ---
Author Author Monique Cobos Doctor Organization [facility] Address Unknown Phone Unavailable Care Team Providers Care Dungeon Master Name Role Phone Migration, Doctor Unavailable Unavailable PROBLEMS Type Condition ICD9-CM Code [id number] Code Onset Dates Condition S tatus SNOMED Code Problem Panic disorder without agoraphobia F41.0 Active 03613679 Problem Agoraphobia F40.00 Active 88678887 Problem Fatigue R53.83 Active 75093411 Problem Varicose veins of both lower extremities I83.93 Active 03353078 Problem Mild chronic obstructive pulmonary disease J44.9 Active 780964455 Problem Mild persistent asthma without complication J45.30 Active 382827915 Problem Essential hypertension I10 Active 16212464 Problem Snoring R06.83 Active 63747065 Problem On home oxygen therapy Z99.81 Active 598041743908 Problem MRSA (methicillin resistant staph aureus) culture positive Z22.322 Active 032799514 Problem Major depressive disorder, recurrent episode, moderate F33.1 Active 222396776 Problem 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 Active 713718396 Problem Arthritis M19.90 Active 2479043 Problem Major depressive disorder in full remission F32.5 Active 99342880 Problem Social phobia F40.10 Active 358852 02 Problem Impaired circulation I99.9 Active 54180049 Problem Slow transit constipation K59.01 Acti ve 79365674 Problem Neuropathy G62.9 Active 271751485 Problem History of illicit drug use Z87.898 Ac tive 869431836 Problem Dysthymic disorder F34.1 Active 7 0143812 Problem Mood disorder F39 Active 184934 05 Problem Psychotic disorder F29 Active 6 7294919 Problem Hypertension, benign I10 Active 09264071 Problem Onychomycosis B35.1 Active 947234 008 ALLERGIES No Information ENCOUNTERS Encounter Location Date Diagnosis [facility] [address] [address] [id number] [place] [address] Aug, [facility] [id number] [place] [address] Jul, [facility] [address] [address] Jul, [facility] [address] [address] May, Morbid obesity E66.01 [place] [address] [address] May, Encounter for immunization Z23 [place] [address] [address] May, Major depressive disorder, recurrent epi sode, moderate F33.1 ; Panic disorder without agoraphobia F41.0 and Morbid obesity E66.01 [place] [address] [address] May, Major depressive disorder in full remiss ion F32.5 and Panic disorder without agoraphobia F41.0 [place] [address] [address] Apr, Morbid obesity E66.01 [place] [address] [address] Apr, Slow transit constipation K59.01 and Lois lulitis of left lower extremity L03.116 [place] [address] [address] Apr, Morbid obesity E66.01 [place] [address] [address] Apr, [place] [address] [address] Apr, Major depressive disorder, recurrent epi sode, moderate F33.1 and Panic disorder without agoraphobia F41.0 [place] [address] [address] Mar, Viral upper respiratory tract infection J06.9 [place] [address] [address] Mar, Bronchitis J40 and Encounter for immuniz ation Z23 [address] [address] 08 Mar, 2019 Morbid obesity E66.[address] [address] Feb, Major depressive disorder, recurrent epi sode, moderate F33.1 and Panic disorder without agoraphobia F41.0 [place] [address] [address] Feb, Morbid obesity E66.[address] [address] Feb, Onychomycosis B35.1 ; Type 2 diabetes me llitus with diabetic neuropathic arthropathy E11.610 and Xerosis of skin L85.[address] [address] Feb, Major depressive disorder, recurrent epi sode, moderate F33.1 ; Panic disorder without agoraphobia F41.0 and Morbid obesity E66.[address] [address] Jan, Major depressive disorder in full remiss ion F32.5 and Panic disorder without agoraphobia F41.[address] [address] Jan, Pneumonia of both lower lobes due to inf ectious organism J18.1 and Morbid obesity E66.01 [place] [address] [address] Jan, [address] [address] Jan, Major depressive disorder in full remiss ion F32.5 and Panic disorder without agoraphobia F41.[address] [address] Jan, [place] [address] [address] Jan, Major depressive disorder, recurrent epi sode, moderate F33.1 ; Panic disorder without agoraphobia F41.0 and Morbid obesity E66.01 [place] [address] [address] Dec, Bilious vomiting with nausea R11.14 ; Co ughing R05 and Choking, subsequent encounter T17.308D [place] [address] [address] Dec, Morbid obesity E66.01 [place] [address] [address] Dec, Major depressive disorder, recurrent epi sode, moderate F33.1 and Panic disorder without agoraphobia F41.0 [place] [address] [address] Dec, [place] [address] [address] Dec, Major depressive disorder, recurrent epi sode, moderate F33.1 [place] [address] [address] Nov, Major depressive disorder, recurrent epi sode, moderate F33.1 ; Panic disorder without agoraphobia F41.0 and Morbid obesity E66.01 [place] [address] [address] Nov, Morbid obesity E66.01 [place] [address] [address] Nov, Major depressive disorder, recurrent epi sode, moderate F33.1 and Panic disorder without agoraphobia F41.0 [facility] [address] [facility] [id number] [place] [address] Nov, Allergic reaction, initial e ncounter T78.40XA and Morbid obesity E66.01 [facility] [id number] [place] [address] Nov, [place] [address] [address] Nov, Morbid obesity E66.01 ; Swallowing probl em R13.10 and Hypertension, benign I10 [facility] [id number] [address] Nov, Morbid obesity E66.01 ; COPD exacerbation J44.1 and Non- recurrent acute suppurative otitis media of left ear without spontaneous rupture of tympanic membrane H66.002 [place] [address] [address] 07 Nov, 2018 Onychomycosis B35.1 ; Neuropathy G62.9 a nd Fissure in skin of foot R23.4 [place] [address] [address] October, Major depressive disorder, recurrent epi sode, moderate F33.1 ; Panic disorder without agoraphobia F41.0 and Morbid obesity E66.01 [facility] [id number] [place] [address] October, Viral upper respiratory trac t infection J06.9 [place] [id number] [place] [address] October, [place] [address] [address] October, Major depressive disorder, recurrent epi sode, moderate F33.1 and Panic disorder without agoraphobia F41.0 [place] [address] [address] October, [place] [address] [address] October, [facility] [address] [address] October, [place] [address] [address] October, [facility] [address] [address] October, [facility] [address] [address] October, [facility] [address] [address] October, Major depressive disorder, recurrent epi sode, moderate F33.1 and Panic disorder without agoraphobia F41.0 [place] [address] [address] Sep, Morbid obesity E66.01 and Lumbar neuriti s M54.16 [place] [address] [address] Sep, Panic disorder without agoraphobia F41.0 and Major depressive disorder, recurrent episode, moderate F33.1 [facility] [address] [facility] [id number] [place] [address] Sep, Gastroenteritis K52.9 ; Low back pain M54.5 ; Other chronic pain G89.29 and Morbid obesity E66.01 [place] [address] [address] Sep, Major depressive disorder, recurrent epi sode, moderate F33.1 ; Panic disorder without agoraphobia F41.0 and Social phobia F40.10 [place] [address] [address] Sep, Panic disorder without agoraphobia F41.0 [facility] [address] [address] Sep, Panic disorder without agoraphobia F41.0 [facility] [address] [address] Aug, Panic disorder without agoraphobia F41.0 ; Major depressive disorder, recurrent episode, moderate F33.1 ; Social phobia F40.10 ; Psychotic disorder F29 ; Tardive dyskinesia G24.01 and Morbid obesity E66.01 [place] [address] [address] Aug, Dysthymic disorder F34.1 and Psychotic d isorder F29 [place] [address] [address] Aug, Encounter for Medicare annual wellness e xam Z00.00 ; Morbid obesity E66.01 and 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 arthropathy E11.610 [place] [address] [address] Aug, Dysthymic disorder F34.1 and Psychotic d isorder F29 [place] [address] [address] Aug, Neuropathy G62.9 ; Onychomycosis B35.1 a nd Xerosis of skin L85.3 [place] [address] [address] Jul, [address] [address] Jul, Mood disorder F39 ; Wheezing R06.2 ; Diego sanchez, initial encounter T17.308A and Coughing R05 [place] [address] [address] Jul, Low back pain M54.5 [facility] [address] [facility] [id number] [address] [address] Jun, Flu-like symptoms R68.89 ; B W[place] 45.0-49.9, adult Z68.42 ; COPD exacerbation J44.1 and Acute bronchitis J20.9 [place] [address] [address] Jun, [place] [address] [address] May, [place] [address] [address] May, Onychomycosis B35.1 and Type 2 diabetes mellitus with diabetic neuropathic arthropathy E11.610 [place] [address] [address] May, Low back pain M54.5 and Edema leg R60.[address] [address] May, BMI 45.0-49.9, adult Z68.42 ; Well woman exam with routine gynecological exam Z01.419 and Breast cancer screening Z12.[address] [address] Apr, Arthritis M19.[address] [address] 16 Apr, 2018 Arthritis M19.90 and Otalgia of both ear s H92.03 [place] [address] [address] Feb, [place] [address] [address] 28 Feb, 2018 Low back pain M54.5 ; Other chronic pain G89.29 ; Exertional asthma J45.990 and Encounter for immunization Z23 [address] [address] Feb, Skin fissures R23.4 ; Neuropathy G62.9 a nd Onychomycosis B35.1 [place] [address] [address] 05 Feb, 2018 Dysthymic disorder F34.1 [place] [address] [address] Feb, [place] [address] [address] Jan, [place] [address] [address] Jan, Abrasion of right elbow, initial encount er S50.311A ; Abrasion, right knee, initial encounter S80.211A and Sprain of other ligament of right ankle, initial encounter S93.491A [facility] [address] [address] Jan, [facility] [address] [facility] [id number] [address] [place] [address] Jan, Injury of left ankle, initia l encounter S99.912A ; Fall down stairs, initial encounter W10.8XXA and BMI 45.0-49.9, adult Z68.42 [place] [address] [address] Jan, COPD exacerbation J44.1 [place] [address] [address] Jan, Dysfunction of both eustachian tubes H69 .83 [place] [address] [address] Jan, Bronchitis J40 and Acute suppurative giovana tis media of left ear without spontaneous rupture of tympanic membrane, recurrence not specified H66.002 [place] [address] [address] Jan, [place] [address] [address] Jan, Bronchitis J40 and BMI 40.0-44.9, adult Z68.41 [place] [address] [address] Jan, [place] [address] [address] Dec, Gastric pain R10.9 [place] [address] [address] Dec, [place] [address] [address] Dec, History of illicit drug use Z87.898 ; Ne uropathy G62.9 ; COPD (chronic obstructive pulmonary disease) with chronic bronchitis J44.9 and Acute pain of right knee M25.561 [place] [address] [address] 30 Nov, 2017 [place] [address] [address] 15 Nov, 2017 Onychomycosis B35.1 and Contusion of lef t foot, subsequent encounter S90.32XD [place] [address] [address] Nov, COPD exacerbation J44.1 [place] [address] [address] Sep, [place] [address] [address] Sep, Dysthymic disorder F34.1 ; Tobacco abuse Z72.0 ; Pain in right knee M25.561 ; Pain in left knee M25.562 ; Other chronic pain G89.29 and BMI 40.0- 44.9, adult Z68.41 [place] [address] [address] Aug, Major depressive disorder, recurrent epi sode, moderate F33.1 and Social phobia F40.[address] [address] Aug, Dysthymic disorder F34.1 ; Non-pressure chronic ulcer of left thigh, unspecified ulcer stage L97.129 ; Tobacco abuse Z72.0 ; Mild chronic obstructive pulmonary disease J44.9 and Forgetfulness R68.89 [place] [address] [address] 09 Aug, 2017 Onychomycosis B35.1 ; Fissure in skin of foot R23.4 and Foot callus L84 [facility] [address] [facility] [id number] [address] [place] [address] Jul, Right medial knee pain M25.5 61 ; Upper respiratory tract infection, unspecified type J06.9 and BMI 40.0-44.9, adult Z68.41 [facility] [address] [facility] [id number] [address] [place] [address] Jul, Nausea and vomiting, intract ability of vomiting not specified, unspecified vomiting type R11.2 ; Left ear pain H92.02 and Gastric pain R10.9 [place] [address] [address] Apr, Encounter for immunization Z23 [place] [address] [address] Apr, Onychomycosis B35.1 ; Xerosis of skin L8 5.3 ; Neuropathy G62.9 and 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 [place] [address] [address] Jan, Onychomycosis B35.1 and Neuropathy G62.9 [facility] [address] [address] Dec, [place] [address] [address] Dec, [facility] [address] [address] Nov, [place] [address] [address] Aug, [facility] [address] [address] Aug, [place] [address] [address] Jul, [place] [address] [address] Jul, [place] [address] [address] Jul, Decubitus ulcer of left thigh, stage 2 L 89.892 [facility] [address] [address] 17 Jul, 2016 Decubitus ulcer of left thigh, stage 2 L 89.892 [facility] [address] [address] 17 Jul, 2016 [facility] [address] [address] 15 Jul, 2016 Decubitus ulcer of left thigh, stage 2 L 89.892 [facility] [address] [address] 14 Jul, 2016 [facility] [address] [address] 13 Jul, 2016 Cellulitis of other specified site L03.8 18 ; Illicit drug use F19.90 and Decubitus ulcer of left thigh, stage 2 L89.892 [facility] [address] [address] 08 Jul, 2016 [facility] [address] [address] 06 Jul, 2016 Cellulitis of right breast N61.0 [place] [address] [address] Jun, [facility] [address] [address] Jun, [place] [address] [address] Jun, Wheezing R06.2 and Arthralgia, unspecifi ed joint M25.50 [facility] [address] [address] May, [facility] [address] [address] May, [facility] [address] [address] May, [facility] [address] [address] 05 May, 2016 Shortness of breath R06.02 [facility] [address] [address] May, Onychomycosis B35.1 and Fissure in skin of foot R23.4 [place] [address] [address] Apr, [facility] [address] [facility] [id number] [address] [place] [address] 18 Apr, 2016 Dizziness R42 [place] [address] [address] 14 Apr, 2016 Shortness of breath R06.02 ; Essential h ypertension I10 ; Dizziness R42 and On home oxygen therapy Z99.81 [place] [address] [address] Apr, [facility] [address] [address] 08 Apr, 2016 [place] [address] [address] Apr, [facility] [address] [address] 04 Apr, 2016 [place] [address] [address] Apr, [facility] [address] [address] Apr, [facility] [address] [address] Apr, [place] [address] [address] Mar, Mild chronic obstructive pulmonary disea se J44.9 [facility] [address] [address] Mar, [place] [address] [address] Mar, Epigastric pain R10.13 ; Low back pain M 54.5 ; Other chronic pain G89.29 and Breast cancer screening Z12.39 [place] [address] [address] Mar, [place] [address] [address] Mar, [place] [address] [address] Feb, [place] [address] [address] Feb, [place] [address] [address] Feb, Fissure in skin of foot R23.4 and Onycho mycosis B35.1 [place] [address] [address] Jan, Agoraphobia F40.00 [place] [address] [address] Dec, Agoraphobia F40.00 [place] [address] [address] Dec, Mild persistent asthma without complicat ion J45.30 ; Dysthymic disorder F34.1 and Upper respiratory tract infection, unspecified type J06.9 [place] [address] [address] Nov, Agoraphobia F40.00 [place] [address] [address] October, Agoraphobia F40.00 [place] [address] [address] Sep, Panic disorder without agoraphobia F41.0 ; Agoraphobia F40.00 and Dysthymic disorder F34.1 [place] [address] [address] Sep, Panic attacks F41.0 [place] [address] [address] Sep, [place] [address] [address] Sep, Panic disorder without agoraphobia F41.0 ; Varicose veins of both lower extremities I83.93 and Fatigue R53.83 [place] [address] [address] Sep, Fatigue R53.83 [place] [address] [address] Sep, [place] [address] [address] Aug, [place] [address] [address] Aug, [place] [address] [address] Aug, Panic disorder without agoraphobia F41.0 ; Agoraphobia F40.00 and Dysthymic disorder F34.1 [place] [address] [address] Aug, Type 2 diabetes mellitus with diabetic n europathic arthropathy E11.610 [place] [address] [address] Aug, Shortness of breath R06.02 ; Panic attac ks F41.0 ; COPD (chronic obstructive pulmonary disease) J44.9 ; Tobacco abuse Z72.0 ; Family history of diabetes mellitus Z83.3 and Weight gain R63.5 [place] [address] [address] Aug, [place] [address] [address] Jul, [place] [address] [address] 08 Jun, 2015 Onychomycosis B35.1 ; Neuropathy G62.9 a nd Impaired circulation I99.9 [place] [address] [address] 09 Mar, 2015 Fissure in skin of foot R23.4 ; Onychomy cosis B35.1 and 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 [place] [address] [address] 18 Feb, 2015 Family history of coronary arteriosclero sis V17.3 [place] [address] [address] Feb, Allergic rhinitis due to pollen 477.0 ; Unspecified breast screening V76.10 ; Anxiety 300.00 and Family history of coronary arteriosclerosis V17.3 [place] [address] [address] Jan, [place] [address] [address] Dec, [place] [address] [address] Dec, Onychomycosis 110.1 and Skin fissures 70 9.8 [place] [address] [address] Sep, [place] [address] [address] Sep, [place] [address] [address] Aug, [place] [address] [address] Aug, [place] [address] [address] Jul, [place] [address] [address] Jul, [facility] [address] [id number] [place] [address] Jun, [facility] [address] [id number] [place] [address] Jun, [facility] [address] [id number] [place] [address] Jun, [facility] [address] [id number] [place] [address] Jun, [facility] [address] [id number] [place] [address] Jun, [facility] [address] [id number] [place] [address] May, [facility] [address] [id number] [place] [address] May, [facility] [address] [id number] [place] [address] May, [facility] [address] [id number] [place] [address] May, [facility] [address] [id number] [place] [address] May, [facility] [address] [id number] [place] [address] May, [facility] [address] [id number] [place] [address] May, [facility] [address] [id number] [place] [address] May, [facility] [address] [id number] [place] [address] Apr, [facility] [address] [id number] [place] [address] Apr, [facility] [address] [id number] [place] [address] Apr, [facility] [address] [id number] [place] [address] Apr, [facility] [address] [id number] [place] [address] Apr, [facility] [address] [id number] [place] [address] Apr, [facility] [address] [id number] [place] [address] Apr, [facility] [address] [id number] [place] [address] Apr, [facility] [address] [id number] [place] [address] Apr, [facility] [address] [id number] [place] [address] Apr, [facility] [address] [id number] [place] [address] Mar, [facility] [address] [id number] [place] [address] Mar, [facility] [address] [address] [facility] [id number] [place] [address] Mar, [facility] [place] [facility] [address] [id number] [place] [address] Mar, [facility] [place] [facility] [address] [id number] [place] [address] Mar, [facility] [place] [facility] [address] [id number] [place] [address] Mar, [facility] [place] [facility] [address] [id number] [place] [address] Mar, [facility] [place] [facility] [id number] [place] [address] Mar, [facility] [place] [facility] [address] [id number] [place] [address] Mar, [facility] [place] [facility] [address] [id number] [place] [address] Mar, [facility] [place] [facility] [address] [facility] [id number] [place] [address] 23 Mar, 2013 [facility] [place] [facility] [address] [facility] [id number] [place] [address] Mar, 2013 [facility] [place] [facility] [address] [id number] [place] [address] 22 Mar, 2013 [facility] [place] [facility] [address] [id number] [place] [address] 22 Mar, 2013 [facility] [place] [facility] [address] [facility] [id number] [place] [address] 22 Mar, 2013 [facility] [place] [facility] [address] [facility] [id number] [place] [address] 20 Mar, 2014 [facility] [place] [facility] [address] [id number] [place] [address] 20 Mar, 2013 [facility] [place] [facility] [address] [id number] [place] [address] 16 Mar, 2013 [facility] [place] [facility] [address] [id number] [place] [address] 16 Mar, 2013 [facility] [place] [facility] [address] [id number] [place] [address] 15 Mar, 2013 [facility] [place] [facility] [address] [id number] [place] [address] 14 Mar, 2013 [facility] [place] [facility] [address] [id number] [place] [address] 14 Mar, 2013 [facility] [place] [facility] [address] [id number] [place] [address] 14 Mar, 2013 [facility] [place] [facility] [address] [facility] [id number] [place] [address] 14 Mar, 2013 [facility] [place] [facility] [address] [id number] [place] [address] 09 Mar, 2013 [facility] [place] [facility] [address] [id number] [place] [address] 09 Mar, 2013 [facility] [place] [facility] [address] [id number] [place] [address] 09 Mar, 2013 [facility] [place] [facility] [address] [facility] [id number] [place] [address] Mar, 2013 [facility] [place] [facility] [address] [facility] [id number] [place] [address] 30 Feb, 2013 [facility] [place] [facility] [address] [id number] [place] [address] 30 Feb, 2013 [facility] [place] [facility] [address] [id number] [place] [address] 30 Feb, 2013 [facility] [place] [facility] [address] [facility] [id number] [place] [address] 30 Feb, 2013 [facility] [place] [facility] [address] [id number] [place] [address] Feb, 2013 [facility] [place] [facility] [address] [id number] [place] [address] Feb, 2013 [facility] [place] [facility] [address] [id number] [place] [address] Feb, 2013 [facility] [place] [facility] [address] [id number] [place] [address] Feb, 2013 [facility] [place] [facility] [address] [id number] [place] [address] Feb, 2013 [facility] [place] [facility] [address] [id number] [place] [address] Feb, 2013 [facility] [place] [facility] [address] [id number] [place] [address] Feb, 2013 [facility] [place] [facility] [address] [id number] [place] [address] Feb, 2013 [facility] [place] [facility] [address] [id number] [place] [address] Jan, [facility] [place] [facility] [address] [id number] [place] [address] Jan, [facility] [place] [facility] [address] [id number] [place] [address] Jan, [facility] [place] [facility] [address] [id number] [place] [address] Jan, [facility] [place] [facility] [address] [id number] [facility] [address] Jan, [facility] [place] [facility] [address] [facility] [id number] [place] [address] Jan, [facility] [place] [facility] [address] [id number] [place] [address] Jan, [facility] [place] [facility] [address] [facility] [id number] [place] [address] Jan, [facility] [place] [facility] [address] [id number] [place] [address] Jan, [facility] [place] [facility] [address] [id number] [place] [address] Jan, [facility] [place] [facility] [address] [id number] [place] [address] Jan, [facility] [place] [facility] [address] [id number] [place] [address] Jan, [facility] [place] [facility] [address] [id number] [place] [address] Jan, [facility] [place] [facility] [address] [id number] [place] [address] Dec, [facility] [place] [facility] [address] [id number] [place] [address] Dec, [facility] [place] [facility] [address] [id number] [place] [address] Dec, [facility] [place] [facility] [address] [id number] [place] [address] Dec, [facility] [place] [facility] [address] [id number] [place] [address] Dec, [facility] [place] [facility] [address] [id number] [place] [address] Dec, [facility] [place] [facility] [address] [id number] [place] [address] Dec, [facility] [place] [facility] [address] [facility] [id number] [place] [address] Dec, 2013 [facility] [place] [facility] [address] [facility] [id number] [place] [address] Dec, 2013 [facility] [place] [facility] [address] [facility] [id number] [place] [address] Dec, 2013 [facility] [place] [facility] [address] [id number] [place] [address] Dec, 2013 [facility] [place] [facility] [address] [facility] [id number] [place] [address] Dec, 2013 [facility] [place] [facility] [address] [id number] [place] [address] Dec, 2013 [facility] [place] [facility] [address] [id number] [place] [address] Dec, 2013 [facility] [place] [facility] [address] [id number] [place] [address] Dec, 2013 [facility] [place] [facility] [address] [id number] [place] [address] Dec, 2013 [facility] [place] [facility] [address] [id number] [place] [address] Dec, 2013 [facility] [place] [facility] [address] [id number] [place] [address] Dec, 2013 [facility] [place] [facility] [address] [id number] [place] [address] Nov, [facility] [place] [facility] [address] [id number] [place] [address] Nov, [facility] [place] [facility] [address] [facility] [id number] [place] [address] Nov, [facility] [place] [facility] [address] [id number] [place] [address] Nov, [facility] [place] [facility] [address] [id number] [place] [address] Nov, [facility] [place] [facility] [address] [id number] [place] [address] Nov, [facility] [place] [facility] [address] [facility] [id number] [place] [address] Nov, [facility] [place] [facility] [address] [facility] [id number] [facility] [address] Nov, [facility] [place] [facility] [address] [facility] [id number] [place] [address] Nov, [facility] [place] [facility] [address] [facility] [id number] [facility] [address] Nov, [facility] [place] [facility] [address] [facility] [id number] [facility] [address] Nov, [facility] [place] [facility] [address] [facility] [id number] [place] [address] Nov, [facility] [place] [facility] [address] [id number] [place] [address] Nov, [facility] [place] [facility] [address] [id number] [place] [address] Nov, [facility] [place] [facility] [address] [facility] [id number] [place] [address] Nov, [facility] [place] [facility] [address] [id number] [place] [address] Nov, [facility] [place] [facility] [address] [id number] [place] [address] Nov, [facility] [place] [facility] [address] [id number] [place] [address] Nov, [facility] [place] [facility] [address] [facility] [id number] [place] [address] Nov, [facility] [place] [facility] [address] [facility] [id number] [place] [address] Nov, [facility] [place] [facility] [address] [facility] [id number] [place] [address] October, [facility] [place] [facility] [address] [id number] [place] [address] October, [facility] [place] [facility] [address] [id number] [place] [address] October, [facility] [place] [facility] [address] [id number] [place] [address] October, [facility] [place] [facility] [address] [id number] [place] [address] Sep, [facility] [place] [facility] [address] [id number] [place] [address] Sep, [facility] [place] [facility] [address] [id number] [place] [address] Sep, [facility] [place] [facility] [address] [facility] [id number] [place] [address] Sep, [facility] [place] [facility] [address] [id number] [place] [address] Sep, [facility] [place] [facility] [address] [id number] [place] [address] Sep, [facility] [place] [facility] [address] [id number] [place] [address] Sep, [facility] [place] [facility] [address] [id number] [place] [address] Sep, [facility] [place] [facility] [address] [id number] [place] [address] Sep, [facility] [place] [facility] [address] [id number] [place] [address] Aug, [facility] [place] [facility] [address] [id number] [place] [address] Aug, [facility] [place] [facility] [address] [id number] [place] [address] Aug, [facility] [place] [facility] [address] [id number] [place] [address] Aug, [facility] [place] [facility] [address] [id number] [place] [address] Aug, [facility] [place] [facility] [address] [id number] [place] [address] Aug, [facility] [place] [facility] [address] [id number] [place] [address] Aug, [facility] [place] [facility] [address] [id number] [place] [address] Aug, [facility] [place] [facility] [address] [id number] [place] [address] Jul, [facility] [place] [facility] [address] [id number] [place] [address] Jul, [facility] [place] [facility] [address] [id number] [place] [address] Jun, [facility] [place] [facility] [address] [id number] [place] [address] Jun, [facility] [place] [facility] [address] [id number] [place] [address] Jun, [facility] [place] [facility] [address] [id number] [place] [address] Jun, [facility] [place] [facility] [address] [id number] [place] [address] Jun, [facility] [place] [facility] [address] [id number] [place] [address] Jun, [facility] [place] [facility] [address] [id number] [place] [address] Jun, [facility] [place] [facility] [address] [id number] [place] [address] Jun, [facility] [place] [facility] [address] [id number] [place] [address] Jun, [facility] [place] [facility] [address] [id number] [place] [address] Jun, [facility] [place] [facility] [address] [id number] [place] [address] Jun, [facility] [place] [facility] [address] [id number] [place] [address] Jun, [facility] [place] [facility] [address] [id number] [place] [address] May, [facility] [place] [facility] [address] [id number] [place] [address] May, [facility] [place] [facility] [address] [id number] [place] [address] May, [facility] [place] [facility] [address] [id number] [place] [address] May, [facility] [place] [facility] [address] [id number] [place] [address] May, [facility] [place] [facility] [address] [id number] [place] [address] May, [facility] [place] [facility] [address] [id number] [place] [address] May, [facility] [place] [facility] [address] [id number] [place] [address] May, [facility] [place] [facility] [address] [id number] [place] [address] May, [facility] [place] [facility] [address] [id number] [place] [address] May, [facility] [place] [facility] [address] [id number] [place] [address] May, [facility] [place] [facility] [address] [id number] [place] [address] May, [facility] [place] [facility] [address] [id number] [place] [address] May, [facility] [place] [facility] [address] [id number] [place] [address] Apr, [facility] [place] [facility] [address] [id number] [place] [address] Apr, [facility] [place] [facility] [address] [id number] [place] [address] Mar, [facility] [place] [facility] [address] [id number] [place] [address] Mar, [facility] [place] [facility] [address] [id number] [place] [address] Feb, [facility] [place] [facility] [address] [id number] [place] [address] Feb, [facility] [place] [facility] [address] [id number] [place] [address] Feb, [facility] [place] [facility] [address] [id number] [place] [address] Feb, [facility] [place] [facility] [address] [id number] [place] [address] Jan, [facility] [place] [facility] [address] [id number] [place] [address] Jan, [facility] [place] [facility] [address] [id number] [place] [address] Jan, [facility] [place] [facility] [address] [id number] [place] [address] Jan, [facility] [place] [facility] [address] [id number] [place] [address] Jan, [facility] [place] [facility] [address] [id number] [place] [address] Jan, [facility] [place] [facility] [address] [id number] [place] [address] Dec, [facility] [place] [facility] [address] [id number] [place] [address] Dec, [facility] [place] [facility] [address] [id number] [place] [address] Dec, [facility] [place] [facility] [address] [id number] [place] [address] Dec, [facility] [place] [facility] [address] [id number] [place] [address] Nov, [facility] [place] [facility] [address] [id number] [place] [address] October, [facility] [place] [facility] [address] [id number] [place] [address] October, [facility] [place] [facility] [address] [id number] [place] [address] October, [facility] [place] [facility] [address] [id number] [place] [address] Sep, [facility] [place] [facility] [address] [id number] [place] [address] Sep, [facility] [place] [facility] [address] [id number] [place] [address] Jun, [facility] [place] [facility] [address] [id number] [place] [address] Jun, [facility] [place] [facility] [address] [id number] [place] [address] Jun, [facility] [place] [facility] [address] [id number] [place] [address] Apr, [facility] [place] [facility] [address] [id number] [place] [address] Apr, [facility] [place] [facility] [address] [id number] [place] [address] Apr, [facility] [place] [facility] [address] [id number] [place] [address] Apr, [facility] [place] [facility] [address] [id number] [place] [address] Mar, [facility] [place] [facility] [address] [id number] [place] [address] Mar, [facility] [place] [facility] [address] [id number] [place] [address] Mar, [facility] [place] [facility] [address] [id number] [place] [address] Mar, [facility] [place] [facility] [address] [id number] [place] [address] 29 Feb, 2012 [facility] [place] [facility] [address] [id number] [place] [address] Feb, [facility] [place] [facility] [address] [id number] [place] [address] Feb, [facility] [place] [facility] [address] [id number] [place] [address] Jan, [facility] [place] [facility] [address] [id number] [place] [address] Jan, [facility] [place] [facility] [address] [id number] [place] [address] Jan, [facility] [place] [facility] [address] [id number] [place] [address] Jan, [facility] [place] [facility] [address] [id number] [place] [address] Dec, [facility] [place] [facility] [address] [id number] [place] [address] Dec, [facility] [place] [facility] [address] [id number] [place] [address] Nov, [facility] [place] [facility] [address] [id number] [place] [address] Nov, [facility] [place] [facility] [address] [id number] [place] [address] October, [facility] [place] [facility] [address] [id number] [place] [address] October, [facility] [place] [facility] [address] [id number] [place] [address] October, [facility] [place] [facility] [address] [id number] [place] [address] Sep, [facility] [address] [id number] [place] [address] Sep, [facility] [address] [id number] [place] [address] Sep, [facility] [address] [id number] [place] [address] Aug, [facility] [address] [id number] [place] [address] Aug, [facility] [address] [id number] [place] [address] 15 Aug, 2011 [facility] [address] [id number] [place] [address] 15 Aug, 2011 [facility] [address] [id number] [place] [address] 07 Aug, 2011 [facility] [address] [id number] [place] [address] 23 Jul, 2011 [facility] [address] [id number] [place] [address] 16 Jul, 2011 [facility] [address] [id number] [place] [address] 13 Jul, 2011 [facility] [address] [id number] [place] [address] 09 Jul, 2011 [facility] [id number] [place] [address] 07 Jul, 2011 [facility] [id number] [place] [address] 06 Jul, 2011 [facility] [address] [id number] [place] [address] 03 Jul, 2011 [facility] [id number] [place] [address] Jul, [facility] [id number] [place] [address] Jun, [facility] [id number] [place] [address] Jun, [facility] [address] [id number] [place] [address] May, [facility] [id number] [place] [address] May, [facility] [address] [id number] [place] [address] 08 May, 2011 [facility] [id number] [place] [address] 08 May, 2011 [facility] [address] [id number] [place] [address] 30 Apr, 2011 [facility] [address] [id number] [place] [address] Apr, [facility] [address] [id number] [place] [address] Apr, [facility] [address] [id number] [place] [address] Mar, [facility] [address] [id number] [place] [address] Mar, [facility] [address] [id number] [place] [address] Mar, [facility] [address] [id number] [place] [address] Mar, [facility] [address] [id number] [place] [address] Dec, [facility] [address] [id number] [place] [address] October, [facility] [address] [id number] [place] [address] May, [facility] [address] [id number] [place] [address] May, [facility] [address] [id number] [place] [address] May, [facility] [address] [id number] [place] [address] May, [facility] [address] [id number] [place] [address] Mar, [facility] [address] [id number] [place] [address] Mar, [facility] [address] [id number] [place] [address] May, [facility] [address] [id number] [place] [address] May, [facility] [address] [id number] [place] [address] May, [facility] [address] [id number] [place] [address] May, [facility] [address] [id number] [place] [address] Apr, [facility] [address] [id number] [place] [address] Apr, [facility] [address] [id number] [place] [address] October, IMMUNIZATIONS No Known Immunizations SOCIAL HISTORY [...]
--- OUTSIDE RECORDS SUMMARY | 2020-01-13 12:24 | XMS REPORT | Continuity of Care Document ---
Author Organization Unknown Address Unknown Phone Unavailable Allergies Active Description Code Type Severity Reaction Onset Reported/Identified Relationship to Patient Clinical Status Yes codeine [id number] Drug Allergy Mild N/A 05/27/2008 Yes codeine Drug Allergy N/A N/A 08/10/2008 Yes codeine Drug Allergy 08/10/2008 Yes bees OA N/A N /A 12/14/2008 Yes bees OA 12/14/2008 Yes Bactrim DS 800-160 mg tablet Drug Allergy N/A N/A 01/06/2014 Yes hydrocodone-acetaminophen 10-325 mg tablet Drug Allergy N/A N/A 5 Yes bee venom (honey bee) [id number] Drug Allergy Unknown N/A 09/16/2014 Yes codeine [id number] Drug Allergy Severe ANAPHYLAXIS BUT 08/19/2019 Yes sulfamethoxazole [id number] Drug Allergy Severe N/A 08/19/2019 Yes trimethoprim [id number] Drug Allergy Severe N/A 08/19/2019 Yes venom-honey bee [id number] D rug Allergy Unknown N/A 08/19/2019 Medications There is no data. Problems Date Dx Coded Attending Type Code Diagnosis Diagnosed By 05/10/1047 JEN SANTIAGO MD, Ot M25.51 2 PAIN IN LEFT SHOULDER 05/10/1047 JEN SANTIAGO MD Ot M25.61 2 STIFFNESS OF LEFT SHOULDER, NOT ELSEWHER 05/10/1047 JEN SANTIAGO MD Ot Z47.89 ENCOUNTER FOR OTHER ORTHOPEDIC AFTERCARE 05/10/1212 JEN SANTIAGO MD Ot M25.51 2 PAIN IN LEFT SHOULDER 05/10/1212 JEN SANTIAGO MD, Ot Z47.89 ENCOUNTER FOR OTHER ORTHOPEDIC AFTERCARE 05/10/1343 CESAR PATTON DO Ot R10. 30 LOWER ABDOMINAL PAIN, UNSPECIFIED 05/10/1343 CESAR PATTON DO Ot R19. 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 05/10/1453 SOSA RESENDIZ MD Ot F15.10 OTHER STIMULANT ABUSE, UNCOMPLICATED 05/10/1453 SOSA RESENDIZ MD Ot L03.818 CELLULITIS OF OTHER SITES 05/10/1453 SOSA RESENDIZ MD Ot L97.122 NON-PRESSURE CHRONIC ULCER OF LEFT THIGH 05/10/1619 JEN SANTIAGO MD Ot M25.51 2 PAIN IN LEFT SHOULDER 05/10/1619 JEN SANTIAGO MD Ot Z47.89 ENCOUNTER FOR OTHER ORTHOPEDIC AFTERCARE 01/10/2008 RASHEED RAHMAN APRN S 724.5 Backache Unspecified 01/10/2008 724.5 Back ache Unspecified 01/10/2008 NICOLA RAHMAN APRNA S 724.5 Backache Unspecified 01/10/2008 724.5 Back ache Unspecified 01/10/2008 724.5 Back ache Unspecified 01/10/2008 NICOLA RAHMAN APRNA S 724.5 Backache Unspecified 01/10/2008 NAKIA RAHMAN APRNNDA S 724.5 Backache Unspecified 01/10/2008 NAKIA RAHMAN APRNNDA S 724.5 Backache Unspecified 01/10/2008 NAKIA RAHMAN APRNNDA S 724.5 Backache Unspecified 01/10/2008 NAKIA RAHMAN APRNNDA S 724.5 Backache Unspecified 01/10/2008 AMINA MATTHEWS MD 724.5 Backache Unspecified 01/10/2008 JACK YUAN DO 724.5 Backache Unspecified 01/10/2008 NICOLA RAHMAN APRNA S 724.5 Backache Unspecified 01/10/2008 NAKIA RAHMAN APRNNDA S 724.5 Backache Unspecified 01/10/2008 NANCY ANAYA APRN 724 .5 Backache Unspecified 01/10/2008 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, RASHEED S 724.5 Backache Unspecified 01/10/2008 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, RASHEED S 724.5 Backache Unspecified 01/10/2008 YUAN DO JACK K 724.5 Backache Unspecified 01/10/2008 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, RASHEED S 724.5 Backache Unspecified 01/10/2008 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, RASHEED S 724.5 Backache Unspecified 01/10/2008 ARIAS GRAJEDA MD 724.5 Backache Unspecified 01/10/2008 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, RASHEED S 724.5 Backache Unspecified 01/10/2008 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, RASHEED S 724.5 Backache Unspecified 01/10/2008 YUAN JACK HDEZ K 724.5 Backache Unspecified 01/10/2008 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, RASHEED S 724.5 Backache Unspecified 01/10/2008 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, RASHEED S 724.5 Backache Unspecified 01/10/2008 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, RASHEED S 724.5 Backache Unspecified 02/18/2008 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, RASHEED S 729.1 MYALGIA AND MYOSITIS UNSPECIFIED 02/18/2008 729.1 MYAL MAGALI AND MYOSITIS UNSPECIFIED 02/18/2008 JOSIAH LERNER, RASHEED S 729.1 MYALGIA AND MYOSITIS UNSPECIFIED 02/18/2008 729.1 MYAL MGAALI AND MYOSITIS UNSPECIFIED 02/18/2008 729.1 MYAL MAGALI AND MYOSITIS UNSPECIFIED 02/18/2008 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, RASHEED S 729.1 MYALGIA AND MYOSITIS UNSPECIFIED 02/18/2008 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, RASHEED S 729.1 MYALGIA AND MYOSITIS UNSPECIFIED 02/18/2008 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, RASHEED S 729.1 MYALGIA AND MYOSITIS UNSPECIFIED 02/18/2008 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, RASHEED S 729.1 MYALGIA AND MYOSITIS UNSPECIFIED 02/18/2008 JOSIAH LERNER RASHEED S 729.1 MYALGIA AND MYOSITIS UNSPECIFIED 02/18/2008 BYRON ESCOTO, AMINA Marr 729.1 MYALGIA AND MYOSITIS UNSPECIFIED 02/18/2008 JACK YUAN DO 729.1 MYALGIA AND MYOSITIS UNSPECIFIED 02/18/2008 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, RASHEED S 729.1 MYALGIA AND MYOSITIS UNSPECIFIED 02/18/2008 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, RASHEED S 729.1 MYALGIA AND MYOSITIS UNSPECIFIED 02/18/2008 NANCY ANAYA APRN 729 .1 MYALGIA AND MYOSITIS UNSPECIFIED 02/18/2008 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, RASHEED S 729.1 MYALGIA AND MYOSITIS UNSPECIFIED 02/18/2008 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, RASHEED S 729.1 MYALGIA AND MYOSITIS UNSPECIFIED 02/18/2008 JACK YUAN DO K 729.1 MYALGIA AND MYOSITIS UNSPECIFIED 02/18/2008 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, RASHEED S 729.1 MYALGIA AND MYOSITIS UNSPECIFIED 02/18/2008 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, RASHEED S 729.1 MYALGIA AND MYOSITIS UNSPECIFIED 02/18/2008 NICCI ESCOTO, ARIAS 729.1 MYALGIA AND MYOSITIS UNSPECIFIED 02/18/2008 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, RASHEED S 729.1 MYALGIA AND MYOSITIS UNSPECIFIED 02/18/2008 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, RASHEED S 729.1 MYALGIA AND MYOSITIS UNSPECIFIED 02/18/2008 JACK YUAN DO K 729.1 MYALGIA AND MYOSITIS UNSPECIFIED 02/18/2008 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, RASHEED S 729.1 MYALGIA AND MYOSITIS UNSPECIFIED 02/18/2008 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, RASHEED S 729.1 MYALGIA AND MYOSITIS UNSPECIFIED 02/18/2008 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, RASHEED S 729.1 MYALGIA AND MYOSITIS UNSPECIFIED 06/22/2008 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, RASHEED S 782.1 Rash 06/22/2008 782.1 Rash 06/22/2008 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, RASHEED S 782.1 Rash 06/22/2008 782.1 Rash 06/22/2008 782.1 Rash 06/22/2008 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, RASHEED S 782.1 Rash 06/22/2008 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, RASHEED S 782.1 Rash 06/22/2008 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, RASHEED S 782.1 Rash 06/22/2008 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, RASHEED S 782.1 Rash 06/22/2008 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, RASHEED S 782.1 Rash 06/22/2008 BYRON ESCOTO, AMINA Marr 782.1 Rash 06/22/2008 YUAN DO, JACK K 782.1 Rash 06/22/2008 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, RASHEED S 782.1 Rash 06/22/2008 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, RASHEED S 782.1 Rash 06/22/2008 JACLYN RETAIL BUSINESS MANAGER, NANCY L 782 .1 Rash 06/22/2008 JOSIHA RETAIL BUSINESS MANAGER, RASHEED S 782.1 Rash 06/22/2008 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, RASHEED S 782.1 Rash 06/22/2008 YUAN DO, JACK K 782.1 Rash 06/22/2008 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, RASHEED S 782.1 Rash 06/22/2008 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, RASHEED S 782.1 Rash 06/22/2008 NICCI ESCOTO, ARIAS 782.1 Rash 06/22/2008 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, RASHEED S 782.1 Rash 06/22/2008 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, RASHEED S 782.1 Rash 06/22/2008 YUAN DO, JACK K 782.1 Rash 06/22/2008 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, RASHEED S 782.1 Rash 06/22/2008 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, RASHEED S 782.1 Rash 06/22/2008 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, RASHEED S 782.1 Rash 08/10/2008 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, RASHEED S 708.9 Unspecified Urticaria 08/10/2008 708.9 Unsp ecified Urticaria 08/10/2008 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, RASHEED S 708.9 Unspecified Urticaria 08/10/2008 708.9 Unsp ecified Urticaria 08/10/2008 708.9 Unsp ecified Urticaria 08/10/2008 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, RASHEED S 708.9 Unspecified Urticaria 08/10/2008 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, RASHEED S 708.9 Unspecified Urticaria 08/10/2008 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, RASHEED S 708.9 Unspecified Urticaria 08/10/2008 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, RASHEED S 708.9 Unspecified Urticaria 08/10/2008 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, RASHEED S 708.9 Unspecified Urticaria 08/10/2008 BYRON ESCOTO, AMINA Marr 708.9 Unspecified Urticaria 08/10/2008 YUAN DO, JACK K 708.9 Unspecified Urticaria 08/10/2008 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, RASHEED S 708.9 Unspecified Urticaria 08/10/2008 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, RASHEED S 708.9 Unspecified Urticaria 08/10/2008 JACLYN RETAIL BUSINESS MANAGER, NANCY L 708 .9 Unspecified Urticaria 08/10/2008 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, RASHEED S 708.9 Unspecified Urticaria 08/10/2008 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, RASHEED S 708.9 Unspecified Urticaria 08/10/2008 YUAN DO, JACK K 708.9 Unspecified Urticaria 08/10/2008 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, RASHEED S 708.9 Unspecified Urticaria 08/10/2008 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, RASHEED S 708.9 Unspecified Urticaria 08/10/2008 ARIAS GRAJEDA MD 708.9 Unspecified Urticaria 08/10/2008 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, RASHEED S 708.9 Unspecified Urticaria 08/10/2008 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, RASHEED S 708.9 Unspecified Urticaria 08/10/2008 YUAN DO, JACK K 708.9 Unspecified Urticaria 08/10/2008 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, RASHEED S 708.9 Unspecified Urticaria 08/10/2008 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, RASHEED S 708.9 Unspecified Urticaria 08/10/2008 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, RASHEED S 708.9 Unspecified Urticaria 08/17/2008 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, RASHEED S 465.9 Acute Upper Respiratory Infections Of Unspecified Site 08/17/2008 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, RASHEED S 692.81 Dermatitis Due To Cosmetics 08/17/2008 465.9 Acut e Upper Respiratory Infections Of Unspecified Site 08/17/2008 692.81 Epifanio matitis Due To Cosmetics 08/17/2008 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, RASHEED S 465.9 Acute Upper Respiratory Infections Of Unspecified Site 08/17/2008 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, RASHEED S 692.81 Dermatitis Due To Cosmetics 08/17/2008 465.9 Acut e Upper Respiratory Infections Of Unspecified Site 08/17/2008 692.81 Epifanio matitis Due To Cosmetics 08/17/2008 465.9 Acut e Upper Respiratory Infections Of Unspecified Site 08/17/2008 692.81 Epifanio matitis Due To Cosmetics 08/17/2008 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, RASHEED S 465.9 Acute Upper Respiratory Infections Of Unspecified Site 08/17/2008 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, RASHEED S 692.81 Dermatitis Due To Cosmetics 08/17/2008 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, RASHEED S 465.9 Acute Upper Respiratory Infections Of Unspecified Site 08/17/2008 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, RASHEED S 692.81 Dermatitis Due To Cosmetics 08/17/2008 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, RASHEED S 465.9 Acute Upper Respiratory Infections Of Unspecified Site 08/17/2008 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, RASHEED S 692.81 Dermatitis Due To Cosmetics 08/17/2008 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, RASHEED S 465.9 Acute Upper Respiratory Infections Of Unspecified Site 08/17/2008 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, RASHEED S 692.81 Dermatitis Due To Cosmetics 08/17/2008 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, RASHEED S 465.9 Acute Upper Respiratory Infections Of Unspecified Site 08/17/2008 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, RASHEED S 692.81 Dermatitis Due To Cosmetics 08/17/2008 AMINA MATTHEWS MD 465.9 Acute Upper Respiratory Infections Of Unspecified Site 08/17/2008 AMINA MATTHEWS MD 692.81 Dermatitis Due To Cosmetics 08/17/2008 YUAN DO JACK K 465.9 Acute Upper Respiratory Infections Of Unspecified Site 08/17/2008 YUAN DO, JACK K 692.81 Dermatitis Due To Cosmetics 08/17/2008 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, RASHEED S 465.9 Acute Upper Respiratory Infections Of Unspecified Site 08/17/2008 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, RASHEED S 692.81 Dermatitis Due To Cosmetics 08/17/2008 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, RASHEED S 465.9 Acute Upper Respiratory Infections Of Unspecified Site 08/17/2008 JOISAH RETAIL BUSINESS MANAGER, RASHEED S 692.81 Dermatitis Due To Cosmetics 08/17/2008 MADL RETAIL BUSINESS MANAGER, NANCY L 465 .9 Acute Upper Respiratory Infections Of Unspecified Site 08/17/2008 MADL RETAIL BUSINESS MANAGER, NANCY L 692 .81 Dermatitis Due To Cosmetics 08/17/2008 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, RASHEED S 465.9 Acute Upper Respiratory Infections Of Unspecified Site 08/17/2008 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, RASHEED S 692.81 Dermatitis Due To Cosmetics 08/17/2008 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, RASHEED S 465.9 Acute Upper Respiratory Infections Of Unspecified Site 08/17/2008 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, RASHEED S 692.81 Dermatitis Due To Cosmetics 08/17/2008 INDER YUAN DOA K 465.9 Acute Upper Respiratory Infections Of Unspecified Site 08/17/2008 YUAN DO JACK K 692.81 Dermatitis Due To Cosmetics 08/17/2008 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, RASHEED S 465.9 Acute Upper Respiratory Infections Of Unspecified Site 08/17/2008 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, RASHEED S 692.81 Dermatitis Due To Cosmetics 08/17/2008 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, RASHEED S 465.9 Acute Upper Respiratory Infections Of Unspecified Site 08/17/2008 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, RASHEED S 692.81 Dermatitis Due To Cosmetics 08/17/2008 ARIAS GRAJEDA MD 465.9 Acute Upper Respiratory Infections Of Unspecified Site 08/17/2008 NICCI ESCOTO ARIAS 692.8 1 Dermatitis Due To Cosmetics 08/17/2008 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, RASHEED S 465.9 Acute Upper Respiratory Infections Of Unspecified Site 08/17/2008 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, RASHEED S 692.81 Dermatitis Due To Cosmetics 08/17/2008 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, RASHEED S 465.9 Acute Upper Respiratory Infections Of Unspecified Site 08/17/2008 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, RASHEED S 692.81 Dermatitis Due To Cosmetics 08/17/2008 YUAN DO, JACK K 465.9 Acute Upper Respiratory Infections Of Unspecified Site 08/17/2008 YUAN DO, JACK K 692.81 Dermatitis Due To Cosmetics 08/17/2008 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, RASHEED S 465.9 Acute Upper Respiratory Infections Of Unspecified Site 08/17/2008 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, RASHEED S 692.81 Dermatitis Due To Cosmetics 08/17/2008 NAKIA RAHMAN APRNNDA S 465.9 Acute Upper Respiratory Infections Of Unspecified Site 08/17/2008 JOSIAH LERNER RASHEED S 692.81 Dermatitis Due To Cosmetics 08/17/2008 JOSIAH LERNER RASHEED S 465.9 Acute Upper Respiratory Infections Of Unspecified Site 08/17/2008 NAKIA RAHMAN APRNNDA S 692.81 Dermatitis Due To Cosmetics 10/27/2008 NICOLA RAHMAN APRNA S 696.1 Other Psoriasis And Similar Disorders 10/27/2008 RASHEED RAHMAN APRN S 704.00 Alopecia Unspecified 10/27/2008 696.1 Othe r Psoriasis And Similar Disorders 10/27/2008 704.00 Oral pecia Unspecified 10/27/2008 NAKIA RAHMAN APRNNDA S 696.1 Other Psoriasis And Similar Disorders 10/27/2008 NICOLA RAHMAN APRNA S 704.00 Alopecia Unspecified 10/27/2008 696.1 Othe r Psoriasis And Similar Disorders 10/27/2008 704.00 Oral pecia Unspecified 10/27/2008 696.1 Othe r Psoriasis And Similar Disorders 10/27/2008 704.00 Oral pecia Unspecified 10/27/2008 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, RASHEED S 696.1 Other Psoriasis And Similar Disorders 10/27/2008 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, RASHEED S 704.00 Alopecia Unspecified 10/27/2008 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, RASHEED S 696.1 Other Psoriasis And Similar Disorders 10/27/2008 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, RASHEED S 704.00 Alopecia Unspecified 10/27/2008 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, RASHEED S 696.1 Other Psoriasis And Similar Disorders 10/27/2008 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, RASHEED S 704.00 Alopecia Unspecified 10/27/2008 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, RASHEED S 696.1 Other Psoriasis And Similar Disorders 10/27/2008 JOSIAH COVARRUBIASN, RASHEED S 704.00 Alopecia Unspecified 10/27/2008 JOSIAH COVARRUBIASN, RASHEED S 696.1 Other Psoriasis And Similar Disorders 10/27/2008 JOSIAH COVARRUBIASN, RASHEED S 704.00 Alopecia Unspecified 10/27/2008 AMINA MATTHEWS MD 696.1 Other Psoriasis And Similar Disorders 10/27/2008 AMINA MATTHEWS MD M 704.00 Alopecia Unspecified 10/27/2008 YUAN DO JACK K 696.1 Other Psoriasis And Similar Disorders 10/27/2008 YUAN DO JACK K 704.00 Alopecia Unspecified 10/27/2008 JOSIAH COVARRUBIASN, RASHEED S 696.1 Other Psoriasis And Similar Disorders 10/27/2008 JOSIAH COVARRUBIASN, RASHEED S 704.00 Alopecia Unspecified 10/27/2008 JOSIAH COVARRUBIASN, RASHEED S 696.1 Other Psoriasis And Similar Disorders 10/27/2008 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, RASHEED S 704.00 Alopecia Unspecified 10/27/2008 MADL RETAIL BUSINESS MANAGER, NANCY L 696 .1 Other Psoriasis And Similar Disorders 10/27/2008 MADL RETAIL BUSINESS MANAGER, NANCY L 704 .00 Alopecia Unspecified 10/27/2008 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, RASHEED S 696.1 Other Psoriasis And Similar Disorders 10/27/2008 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, RASHEED S 704.00 Alopecia Unspecified 10/27/2008 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, RASHEED S 696.1 Other Psoriasis And Similar Disorders 10/27/2008 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, RASHEED S 704.00 Alopecia Unspecified 10/27/2008 YUAN DO, JACK K 696.1 Other Psoriasis And Similar Disorders 10/27/2008 YUAN DO, JACK K 704.00 Alopecia Unspecified 10/27/2008 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, RASHEED S 696.1 Other Psoriasis And Similar Disorders 10/27/2008 JOSIAH COVARRUBIASN, RASHEED S 704.00 Alopecia Unspecified 10/27/2008 JOSIAH COVARRUBIASN, RASHEED S 696.1 Other Psoriasis And Similar Disorders 10/27/2008 JOSIAH LERNER, RASHEED S 704.00 Alopecia Unspecified 10/27/2008 ARIAS GRAJEDA MD 696.1 Other Psoriasis And Similar Disorders 10/27/2008 ARIAS GRAJEDA MD 704.0 0 Alopecia Unspecified 10/27/2008 JOSIAH LERNER RASHEED S 696.1 Other Psoriasis And Similar Disorders 10/27/2008 JOSIAH COVARRUBIASN RASHEED S 704.00 Alopecia Unspecified 10/27/2008 JOSIAH COVARRUBIASN, RASHEED S 696.1 Other Psoriasis And Similar Disorders 10/27/2008 JOSIAH LERNER, RASHEED S 704.00 Alopecia Unspecified 10/27/2008 YUAN DO, JACK K 696.1 Other Psoriasis And Similar Disorders 10/27/2008 YUAN DO JACK K 704.00 Alopecia Unspecified 10/27/2008 JOSIAH COVARRUBIASN, RASHEED S 696.1 Other Psoriasis And Similar Disorders 10/27/2008 JOSIAH COVARRUBIASN, RASHEED S 704.00 Alopecia Unspecified 10/27/2008 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, RASHEED S 696.1 Other Psoriasis And Similar Disorders 10/27/2008 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, RASHEED S 704.00 Alopecia Unspecified 10/27/2008 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, RASHEED S 696.1 Other Psoriasis And Similar Disorders 10/27/2008 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, RASHEED S 704.00 Alopecia Unspecified 12/14/2008 JOSIAH LERNER RASHEED S 682.3 Cellulitis And Abscess Of Upper Arm And Forearm 12/14/2008 682.3 Cell ulitis And Abscess Of Upper Arm And Forearm 12/14/2008 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, RASHEED S 682.3 Cellulitis And Abscess Of Upper Arm And Forearm 12/14/2008 682.3 Cell ulitis And Abscess Of Upper Arm And Forearm 12/14/2008 682.3 Cell ulitis And Abscess Of Upper Arm And Forearm 12/14/2008 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, RASHEED S 682.3 Cellulitis And Abscess Of Upper Arm And Forearm 12/14/2008 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, RASHEED S 682.3 Cellulitis And Abscess Of Upper Arm And Forearm 12/14/2008 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, RASHEED S 682.3 Cellulitis And Abscess Of Upper Arm And Forearm 12/14/2008 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, RASHEED S 682.3 Cellulitis And Abscess Of Upper Arm And Forearm 12/14/2008 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, RASHEED S 682.3 Cellulitis And Abscess Of Upper Arm And Forearm 12/14/2008 BYRON ESCOTO, AMINA Marr 682.3 Cellulitis And Abscess Of Upper Arm And Forearm 12/14/2008 JACK YUAN DO 682.3 Cellulitis And Abscess Of Upper Arm And Forearm 12/14/2008 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, RASHEED S 682.3 Cellulitis And Abscess Of Upper Arm And Forearm 12/14/2008 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, RASHEED S 682.3 Cellulitis And Abscess Of Upper Arm And Forearm 12/14/2008 NANCY ANAYA APRN 682 .3 Cellulitis And Abscess Of Upper Arm And Forearm 12/14/2008 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, RASHEED S 682.3 Cellulitis And Abscess Of Upper Arm And Forearm 12/14/2008 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, RASHEED S 682.3 Cellulitis And Abscess Of Upper Arm And Forearm 12/14/2008 JACK YUAN DO 682.3 Cellulitis And Abscess Of Upper Arm And Forearm 12/14/2008 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, RASHEED S 682.3 Cellulitis And Abscess Of Upper Arm And Forearm 12/14/2008 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, RASHEED S 682.3 Cellulitis And Abscess Of Upper Arm And Forearm 12/14/2008 NICCI ESCOTO, ARIAS 682.3 Cellulitis And Abscess Of Upper Arm And Forearm 12/14/2008 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, RASHEED S 682.3 Cellulitis And Abscess Of Upper Arm And Forearm 12/14/2008 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, RASHEED S 682.3 Cellulitis And Abscess Of Upper Arm And Forearm 12/14/2008 JACK YUAN DO 682.3 Cellulitis And Abscess Of Upper Arm And Forearm 12/14/2008 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, RASHEED S 682.3 Cellulitis And Abscess Of Upper Arm And Forearm 12/14/2008 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, RASHEED S 682.3 Cellulitis And Abscess Of Upper Arm And Forearm 12/14/2008 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, RASHEED S 682.3 Cellulitis And Abscess Of Upper Arm And Forearm 08/03/2009 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, RASHEED S 496 CHRONIC OBSTRUCTIVE PULMONARY DISEASE 08/03/2009 496 CHRONI C OBSTRUCTIVE PULMONARY DISEASE 08/03/2009 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, RASHEED S 496 CHRONIC OBSTRUCTIVE PULMONARY DISEASE 08/03/2009 496 CHRONI C OBSTRUCTIVE PULMONARY DISEASE 08/03/2009 496 CHRONI C OBSTRUCTIVE PULMONARY DISEASE 08/03/2009 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, RASHEED S 496 CHRONIC OBSTRUCTIVE PULMONARY DISEASE 08/03/2009 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, RASHEED S 496 CHRONIC OBSTRUCTIVE PULMONARY DISEASE 08/03/2009 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, RASHEED S 496 CHRONIC OBSTRUCTIVE PULMONARY DISEASE 08/03/2009 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, RASHEED S 496 CHRONIC OBSTRUCTIVE PULMONARY DISEASE 08/03/2009 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, RASHEED S 496 CHRONIC OBSTRUCTIVE PULMONARY DISEASE 08/03/2009 AMINA MATTHEWS MD 496 CHRONIC OBSTRUCTIVE PULMONARY DISEASE 08/03/2009 JACK YUAN DO 496 CHRONIC OBSTRUCTIVE PULMONARY DISEASE 08/03/2009 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, RASHEED S 496 CHRONIC OBSTRUCTIVE PULMONARY DISEASE 08/03/2009 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, RASHEED S 496 CHRONIC OBSTRUCTIVE PULMONARY DISEASE 08/03/2009 NANCY ANAYA APRN 496 CHRONIC OBSTRUCTIVE PULMONARY DISEASE 08/03/2009 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, RASHEED S 496 CHRONIC OBSTRUCTIVE PULMONARY DISEASE 08/03/2009 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, RASHEED S 496 CHRONIC OBSTRUCTIVE PULMONARY DISEASE 08/03/2009 KWABENA DO JACK K 496 CHRONIC OBSTRUCTIVE PULMONARY DISEASE 08/03/2009 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, RASHEED S 496 CHRONIC OBSTRUCTIVE PULMONARY DISEASE 08/03/2009 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, RASHEED S 496 CHRONIC OBSTRUCTIVE PULMONARY DISEASE 08/03/2009 ARIAS GRAJEDA MD 49Aristeo CHRONIC OBSTRUCTIVE PULMONARY DISEASE 08/03/2009 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, RASHEED S 496 CHRONIC OBSTRUCTIVE PULMONARY DISEASE 08/03/2009 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, 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 S 496 CHRONIC OBSTRUCTIVE PULMONARY DISEASE 08/03/2009 JACK YUAN DO 496 CHRONIC OBSTRUCTIVE PULMONARY DISEASE 08/03/2009 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, RASHEED S 496 CHRONIC OBSTRUCTIVE PULMONARY DISEASE 08/03/2009 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, 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 S 496 CHRONIC OBSTRUCTIVE PULMONARY DISEASE 08/03/2009 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, RASHEED S 496 CHRONIC OBSTRUCTIVE PULMONARY DISEASE 04/05/2010 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, RASHEED S 535.40 Other Specified Gastritis (without Hemorrhage) 04/05/2010 535.40 Oth er Specified Gastritis (without Hemorrhage) 04/05/2010 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, RASHEED S 535.40 Other Specified Gastritis (without Hemorrhage) 04/05/2010 535.40 Oth er Specified Gastritis (without Hemorrhage) 04/05/2010 535.40 Oth er Specified Gastritis (without Hemorrhage) 04/05/2010 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, RASHEED S 535.40 Other Specified Gastritis (without Hemorrhage) 04/05/2010 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, RASHEED S 535.40 Other Specified Gastritis (without Hemorrhage) 04/05/2010 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, RASHEED S 535.40 Other Specified Gastritis (without Hemorrhage) 04/05/2010 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, 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 535.40 Other Specified Gastritis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 METHICILLIN RESISTANT 08/24/2011 JOSIAH RETAIL BUSINESS MANAGER, RASHEED S 780.4 DIZZINESS 08/24/2011 JOSIAH RETAIL BUSINESS MANAGER, RASHEED S 788.33 URGE AND STRESS INCONTINENCE 08/24/2011 JOSIAH RETAIL BUSINESS MANAGER, RASHEED S 041.12 MRSA, METHICILLIN RESISTANT 08/24/2011 JOSIAH RETAIL BUSINESS MANAGER, RASHEED S 780.4 DIZZINESS 08/24/2011 JOSIAH RETAIL BUSINESS MANAGER, RASHEED S 788.33 URGE AND STRESS INCONTINENCE 08/24/2011 ARIAS GRAJEDA MD 041.1 2 MRSA, METHICILLIN RESISTANT 08/24/2011 ARIAS GRJAEDA MD 780.4 DIZZINESS 08/24/2011 ARIAS GRAJEDA MD 788.3 3 URGE AND STRESS INCONTINENCE 08/24/2011 JOSIAH RETAIL BUSINESS MANAGER, ARSHEED S 041.12 MRSA, METHICILLIN RESISTANT 08/24/2011 JOSIAH RETAIL BUSINESS MANAGER, RASHEED S 780.4 DIZZINESS 08/24/2011 JOSIAH RETAIL BUSINESS MANAGER, RASHEED S 788.33 URGE AND STRESS INCONTINENCE 08/24/2011 JOSIAH RETAIL BUSINESS MANAGER, RASHEED S 041.12 MRSA, METHICILLIN RESISTANT 08/24/2011 JOSIAH RETAIL BUSINESS MANAGER, RASHEED S 780.4 DIZZINESS 08/24/2011 JOSIAH RETAIL BUSINESS MANAGER, RASHEED S 788.33 URGE AND STRESS INCONTINENCE 08/24/2011 YUAN DO, JACK K 041.12 MRSA, METHICILLIN RESISTANT 08/24/2011 YUAN DO, JACK K 780.4 DIZZINESS 08/24/2011 YUAN DO, JACK K 788.33 URGE AND STRESS INCONTINENCE 08/24/2011 JOSIAH RETAIL BUSINESS MANAGER, RASHEED S 041.12 MRSA, METHICILLIN RESISTANT 08/24/2011 JOSIAH RETAIL BUSINESS MANAGER, RASHEED S 780.4 DIZZINESS 08/24/2011 JOSIAH RETAIL BUSINESS MANAGER, RASHEED S 788.33 URGE AND STRESS INCONTINENCE 08/24/2011 JOSIAH RETAIL BUSINESS MANAGER, RASHEED S 041.12 MRSA, METHICILLIN RESISTANT 08/24/2011 JOSIAH RETAIL BUSINESS MANAGER, RASHEED S 780.4 DIZZINESS 08/24/2011 JOSIAH RETAIL BUSINESS MANAGER, RASHEED S 788.33 URGE AND STRESS INCONTINENCE 08/24/2011 JOSIAH LERNER RASHEED S 041.12 MRSA, METHICILLIN RESISTANT 08/24/2011 JOSIAH RETAIL BUSINESS MANAGER, RASHEED S 780.4 DIZZINESS 08/24/2011 JOSIAH RETAIL BUSINESS MANAGER, RASHEED S 788.33 URGE AND STRESS INCONTINENCE 10/26/2011 Ot 287.5 THRO MBOCYTOPENIA NOS 10/26/2011 Ot 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 10/26/2011 Ot 327.23 OBS TRUCTIVE SLEEP APNEA (ADULT) (PEDIATR 10/26/2011 Ot 401.9 HYPE RTENSION NOS 10/26/2011 Ot 496 CHR AI RWAY OBSTRUCT NEC 10/26/2011 Ot 596.51 HYP ERTONICITY OF BLADDER 10/26/2011 Ot 715.36 LOC OSTEOARTH NOS-L/LEG 01/18/2012 Ot V43.65 KNE E JOINT REPLACEMENT STATUS 01/18/2012 Ot V54.81 AFT ERCARE FOLLOWING JOINT REPLACEMENT 01/18/2012 Ot V57.1 PHYS ICAL THERAPY NEC 04/02/2012 NICOLA RAHMAN APRNA S 079.99 VIRAL SYNDROME 04/02/2012 RASHEED RAHMAN APRN S 466.0 BRONCHITIS, ACUTE 04/02/2012 079.99 VIR AL SYNDROME 04/02/2012 466.0 BRON CHITIS, ACUTE 04/02/2012 JOSIAH RETAIL BUSINESS MANAGER, RASHEED S 079.99 VIRAL SYNDROME 04/02/2012 JOSIAH RETAIL BUSINESS MANAGER, RASHEED S 466.0 BRONCHITIS, ACUTE 04/02/2012 079.99 VIR AL SYNDROME 04/02/2012 466.0 BRON CHITIS, ACUTE 04/02/2012 079.99 VIR AL SYNDROME 04/02/2012 466.0 BRON CHITIS, ACUTE 04/02/2012 JOSIAH RETAIL BUSINESS MANAGER, RASHEED S 079.99 VIRAL SYNDROME 04/02/2012 JOSIAH RETAIL BUSINESS MANAGER, RASHEED S 466.0 BRONCHITIS, ACUTE 04/02/2012 JOSIAH RETAIL BUSINESS MANAGER, RASHEED S 079.99 VIRAL SYNDROME 04/02/2012 JOSIAH RETAIL BUSINESS MANAGER, RASHEED S 466.0 BRONCHITIS, ACUTE 04/02/2012 JOSIAH RETAIL BUSINESS MANAGER, RASHEED S 079.99 VIRAL SYNDROME 04/02/2012 JOSIAH RETAIL BUSINESS MANAGER, RASHEED S 466.0 BRONCHITIS, ACUTE 04/02/2012 JOSIAH RETAIL BUSINESS MANAGER, RASHEED S 079.99 VIRAL SYNDROME 04/02/2012 JOSIAH RETAIL BUSINESS MANAGER, RASHEED S 466.0 BRONCHITIS, ACUTE 04/02/2012 JOSIAH RETAIL BUSINESS MANAGER, RASHEED S 079.99 VIRAL SYNDROME 04/02/2012 JOSIAH RETAIL BUSINESS MANAGER, RASHEED S 466.0 BRONCHITIS, ACUTE 04/02/2012 AMINA MATTHEWS MD 079.99 VIRAL SYNDROME 04/02/2012 AMINA MATTHEWS MD 466.0 BRONCHITIS, ACUTE 04/02/2012 YUAN DO, JACK K 079.99 VIRAL SYNDROME 04/02/2012 YUAN DO, JACK K 466.0 BRONCHITIS, ACUTE 04/02/2012 JOSIAH RETAIL BUSINESS MANAGER, RASHEED S 079.99 VIRAL SYNDROME 04/02/2012 JOSIAH RETAIL BUSINESS MANAGER, RASHEED S 466.0 BRONCHITIS, ACUTE 04/02/2012 JOSIAH RETAIL BUSINESS MANAGER, RASHEED S 079.99 VIRAL SYNDROME 04/02/2012 JOSIAH RETAIL BUSINESS MANAGER, RASHEED S 466.0 BRONCHITIS, ACUTE 04/02/2012 NANCY ANAYA APRN 079 .99 VIRAL SYNDROME 04/02/2012 MADL RETAIL BUSINESS MANAGER, NANCY L 466 .0 BRONCHITIS, ACUTE 04/02/2012 JOSIAH RETAIL BUSINESS MANAGER, RASHEED S 079.99 VIRAL SYNDROME 04/02/2012 JOSIAH RETAIL BUSINESS MANAGER, RASHEED S 466.0 BRONCHITIS, ACUTE 04/02/2012 JOSIAH RETAIL BUSINESS MANAGER, RASHEED S 079.99 VIRAL SYNDROME 04/02/2012 JOSIAH RETAIL BUSINESS MANAGER, RASHEED S 466.0 BRONCHITIS, ACUTE 04/02/2012 YUAN DO, JACK K 079.99 VIRAL SYNDROME 04/02/2012 YUAN DO, JACK K 466.0 BRONCHITIS, ACUTE 04/02/2012 JOSIAH RETAIL BUSINESS MANAGER, RASHEED S 079.99 VIRAL SYNDROME 04/02/2012 JOSIAH RETAIL BUSINESS MANAGER, RASHEED S 466.0 BRONCHITIS, ACUTE 04/02/2012 JOSIAH RETAIL BUSINESS MANAGER, RASHEED S 079.99 VIRAL SYNDROME 04/02/2012 JOSIAH RETAIL BUSINESS MANAGER, RASHEED S 466.0 BRONCHITIS, ACUTE 04/02/2012 ARIAS GRAJEDA MD 079.9 9 VIRAL SYNDROME 04/02/2012 ARIAS GRAJEDA MD 466.0 BRONCHITIS, ACUTE 04/02/2012 JOSIAH RETAIL BUSINESS MANAGER, RASHEED S 079.99 VIRAL SYNDROME 04/02/2012 JOSIAH RETAIL BUSINESS MANAGER, RASHEED S 466.0 BRONCHITIS, ACUTE 04/02/2012 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, RASHEED S 079.99 VIRAL SYNDROME 04/02/2012 JOSIAH RETAIL BUSINESS MANAGER, RASHEED S 466.0 BRONCHITIS, ACUTE 04/02/2012 YUAN DO, JACK K 079.99 VIRAL SYNDROME 04/02/2012 YUAN DO, JACK K 466.0 BRONCHITIS, ACUTE 04/02/2012 JOSIAH RETAIL BUSINESS MANAGER, RASHEED S 079.99 VIRAL SYNDROME 04/02/2012 JOSIAH RETAIL BUSINESS MANAGER, RASHEED S 466.0 BRONCHITIS, ACUTE 04/02/2012 JOSIAH RETAIL BUSINESS MANAGER, RASHEED S 079.99 VIRAL SYNDROME 04/02/2012 JOSIAH RETAIL BUSINESS MANAGER, RASHEED S 466.0 BRONCHITIS, ACUTE 04/02/2012 JOSIAH RETAIL BUSINESS MANAGER, RASHEED S 079.99 VIRAL SYNDROME 04/02/2012 JOSIAH RETAIL BUSINESS MANAGER, RASHEED S 466.0 BRONCHITIS, ACUTE 01/07/2013 V07.4 HORM ONE REPLACEMENT THERAPY (POSTMENOPAUSAL) 01/07/2013 JOSIAH LERNER, RASHEED S V07.4 HORMONE REPLACEMENT THERAPY (POSTMENOPAUSAL) 01/07/2013 JOSIAH COVARRUBIASN, RASHEED S V07.4 HORMONE REPLACEMENT THERAPY (POSTMENOPAUSAL) 01/07/2013 JOSIAH COVARRUBIASN, RASHEED S V07.4 HORMONE REPLACEMENT THERAPY (POSTMENOPAUSAL) [...] REPLACEMENT THERAPY (POSTMENOPAUSAL) 01/07/2013 NANCY ANAYA APRN V07 .4 HORMONE REPLACEMENT THERAPY (POSTMENOPAUSAL) 01/07/2013 JOSIAH LERNER, [...] S V76.10 BREAST CANCER SCREENING 06/02/2013 JOSIAH RETAIL BUSINESS MANAGER, RASHEED S V76.2 CERVICAL CANCER SCREENING (PAP [...] V76.2 CERVICAL CANCER SCREENING (PAP SMEAR) 06/02/2013 JACK YUAN DO K 696.1 PSORIASIS 06/02/2013 JACK YUAN DO K V73.81 HPV SCREENING 06/02/2013 JACK YUAN DO K V76.10 BREAST CANCER SCREENING 06/02/2013 INDER YUAN DOA K V76.2 CERVICAL CANCER SCREENING (PAP SMEAR) 06/02/2013 JOSIAH LERNER RASHEED S 696.1 PSORIASIS 06/02/2013 JOSIAH RETAIL BUSINESS MANAGER, RASHEED S V73.81 HPV SCREENING 06/02/2013 JOSIAH RETAIL BUSINESS MANAGER, RASHEED S V76.10 BREAST CANCER SCREENING 06/02/2013 JOSIAH RETAIL BUSINESS MANAGER, RASHEED S V76.2 CERVICAL CANCER SCREENING (PAP SMEAR) 06/02/2013 JOSIAH RETAIL BUSINESS MANAGER, RASHEED S 696.1 PSORIASIS 06/02/2013 JOSIAH RETAIL BUSINESS MANAGER, RASHEED S V73.81 HPV SCREENING 06/02/2013 JOSIAH RETAIL BUSINESS MANAGER, RASHEED S V76.10 BREAST CANCER SCREENING 06/02/2013 JOSIAH RETAIL BUSINESS MANAGER, RASHEED S V76.2 CERVICAL CANCER SCREENING (PAP SMEAR) 06/02/2013 MADL RETAIL BUSINESS MANAGER, NANCY L 696 .1 PSORIASIS 06/02/2013 MADL RETAIL BUSINESS MANAGER, NANCY L V73 .81 HPV SCREENING 06/02/2013 MADL RETAIL BUSINESS MANAGER, NANCY L V76 .10 BREAST CANCER SCREENING 06/02/2013 MADL RETAIL BUSINESS MANAGER, NANCY L V76 .2 CERVICAL CANCER SCREENING (PAP SMEAR) 06/02/2013 JOSIAH LERNER, RASHEED S 696.1 PSORIASIS 06/02/2013 JOSIAH RETAIL BUSINESS MANAGER, RASHEED S V73.81 HPV SCREENING 06/02/2013 JOSIAH LERNER RASHEED S V76.10 BREAST CANCER SCREENING 06/02/2013 JOSIAH LERNER, RASHEED S V76.2 CERVICAL CANCER SCREENING (PAP SMEAR) 06/02/2013 JOSIAH LERNER RASHEED S 696.1 PSORIASIS 06/02/2013 JOSIAH LERNER, RASHEED S V73.81 HPV SCREENING 06/02/2013 JOSIAH RETAIL BUSINESS MANAGER, RASHEED S V76.10 BREAST CANCER SCREENING 06/02/2013 JOSIAH RETAIL BUSINESS MANAGER, RASHEED S V76.2 CERVICAL CANCER SCREENING (PAP SMEAR) 06/02/2013 YUAN DO, JACK K 696.1 PSORIASIS 06/02/2013 YUAN DO, JACK K V73.81 HPV SCREENING 06/02/2013 YUAN DO, JACK K V76.10 BREAST CANCER SCREENING 06/02/2013 YUAN DO, JACK K V76.2 CERVICAL CANCER SCREENING (PAP SMEAR) 06/02/2013 JOSIAH RETAIL BUSINESS MANAGER, RASHEED S 696.1 PSORIASIS 06/02/2013 JOSIAH LERNER RASHEED S V73.81 HPV SCREENING 06/02/2013 JOSIAH LERNER RASHEED S V76.10 BREAST CANCER SCREENING 06/02/2013 JOSIAH RETAIL BUSINESS MANAGER, RASHEED S V76.2 CERVICAL CANCER SCREENING (PAP SMEAR) 06/02/2013 JOSIAH LERNER RASHEED S 696.1 PSORIASIS 06/02/2013 JOSIAH LERNER RASHEED S V73.81 HPV SCREENING 06/02/2013 JOSIAH LERNER RASHEED S V76.10 BREAST CANCER SCREENING 06/02/2013 JOSIAH LERNER RASHEED S V76.2 CERVICAL CANCER SCREENING (PAP SMEAR) 06/02/2013 ARIAS GRAJEDA MD 696.1 PSORIASIS 06/02/2013 ARIAS GRAJEDA MD V73.8 1 HPV SCREENING 06/02/2013 ARIAS GRAJEDA MD V76.1 0 BREAST CANCER SCREENING 06/02/2013 ARIAS GRAJEDA MD V76.2 CERVICAL CANCER SCREENING (PAP SMEAR) 06/02/2013 JOSIAH LERNER RASHEED S 696.1 PSORIASIS 06/02/2013 JOSIAH LRENER RASHEED S V73.81 HPV SCREENING 06/02/2013 JOSIAH LERNER RASHEED S V76.10 BREAST CANCER SCREENING 06/02/2013 JOSIAH LERNER RASHEED S V76.2 CERVICAL CANCER SCREENING (PAP SMEAR) 06/02/2013 NAKIA RAHMAN APRNNDA S 696.1 PSORIASIS 06/02/2013 JOSIAH LERNER RASHEED [...] CERVICAL CANCER SCREENING (PAP SMEAR) 06/02/2013 JOSIAH RETAIL BUSINESS MANAGER, RASHEED S 696.1 PSORIASIS 06/02/2013 JOSIAH RETAIL BUSINESS MANAGER, RASHEED S V73.81 HPV SCREENING 06/02/2013 JOSIAH RETAIL BUSINESS MANAGER, RASHEED S V76.10 BREAST CANCER SCREENING 06/02/2013 JOSIAH RETAIL BUSINESS MANAGER, RASHEED S V76.2 CERVICAL CANCER SCREENING (PAP SMEAR) 06/02/2013 JOSIAH RETAIL BUSINESS MANAGER, RASHEED S 696.1 PSORIASIS 06/02/2013 JOSIAH RETAIL BUSINESS MANAGER, RASHEED S V73.81 HPV SCREENING 06/02/2013 JOSIAH RETAIL BUSINESS MANAGER, RASHEED S V76.10 BREAST CANCER SCREENING 06/02/2013 JOSIAH RETAIL BUSINESS MANAGER, RASHEED S V76.2 CERVICAL CANCER SCREENING (PAP SMEAR) 06/02/2013 JOSIAH RETAIL BUSINESS MANAGER, RASHEED S 696.1 PSORIASIS 06/02/2013 JOSIAH RETAIL BUSINESS MANAGER, RASHEED S V73.81 HPV SCREENING 06/02/2013 JOSIAH RETAIL BUSINESS MANAGER, RASHEED S V76.10 BREAST CANCER SCREENING 06/02/2013 JOSIAH RETAIL BUSINESS MANAGER, RASHEED S V76.2 CERVICAL CANCER SCREENING (PAP SMEAR) 07/03/2013 JOSIAH LERNER, RASHEED S 682.6 CELLULITIS AND ABSCESS OF LEG EXCEPT FOOT 07/03/2013 BYRON ESCOTO, AMINA Marr 682.6 CELLULITIS AND ABSCESS OF LEG EXCEPT FOOT 07/03/2013 JACK YUAN DO 682.6 CELLULITIS AND ABSCESS OF LEG EXCEPT FOOT 07/03/2013 NAKIA RAHMAN APRNNDA S 682.6 CELLULITIS AND ABSCESS OF LEG EXCEPT FOOT 07/03/2013 JOSIAH LERNER RASHEED S 682.6 CELLULITIS AND ABSCESS OF LEG EXCEPT FOOT 07/03/2013 NANCY ANAYA APRN 682 .6 CELLULITIS AND ABSCESS OF LEG EXCEPT FOOT 07/03/2013 JOSIAH LERNER RASHEED S 682.6 CELLULITIS AND ABSCESS OF LEG EXCEPT FOOT 07/03/2013 JOSIAH LERNER RASHEED S 682.6 CELLULITIS AND ABSCESS OF LEG EXCEPT FOOT 07/03/2013 JACK YUAN DO 682.6 CELLULITIS AND ABSCESS OF LEG EXCEPT FOOT 07/03/2013 JOSIAH RETAIL BUSINESS MANAGER, RASHEED S 682.6 CELLULITIS AND ABSCESS OF LEG EXCEPT FOOT 07/03/2013 JOSIAH RETAIL BUSINESS MANAGER, RASHEED S 682.6 CELLULITIS AND ABSCESS OF LEG EXCEPT FOOT 07/03/2013 NICCI ESCOTO, ARIAS 682.6 CELLULITIS AND ABSCESS OF LEG EXCEPT FOOT 07/03/2013 JOSIAH RETAIL BUSINESS MANAGER, RASHEED S 682.6 CELLULITIS AND ABSCESS OF LEG EXCEPT FOOT 07/03/2013 JOSIAH RETAIL BUSINESS MANAGER, RASHEED S 682.6 CELLULITIS AND ABSCESS OF LEG EXCEPT FOOT 07/03/2013 JACK YUAN DO K 682.6 CELLULITIS AND ABSCESS OF LEG EXCEPT FOOT 07/03/2013 JOSIAH RETAIL BUSINESS MANAGER, RASHEED S 682.6 CELLULITIS AND ABSCESS OF LEG EXCEPT FOOT 07/03/2013 JOSIAH RETAIL BUSINESS MANAGER, RASHEED S 682.6 CELLULITIS AND ABSCESS OF LEG EXCEPT FOOT 07/03/2013 JOSIAH RETAIL BUSINESS MANAGER, RASHEED S 682.6 CELLULITIS AND ABSCESS OF LEG EXCEPT FOOT 08/15/2013 BYRON ESCOTO, AMINA Marr 461.9 SINUSITIS ACUTE 08/15/2013 JACK YUAN DO K 461.9 SINUSITIS ACUTE 08/15/2013 JOSIAH RETAIL BUSINESS MANAGER, RASHEED S 461.9 SINUSITIS ACUTE 08/15/2013 JOSIAH RETAIL BUSINESS MANAGER, RASHEED S 461.9 SINUSITIS ACUTE 08/15/2013 JACLYN LERNER, NANCY L 461 .9 SINUSITIS ACUTE 08/15/2013 JOSIAH RETAIL BUSINESS MANAGER, RASHEED S 461.9 SINUSITIS ACUTE 08/15/2013 JOSIAH RETAIL BUSINESS MANAGER, RASHEED S 461.9 SINUSITIS ACUTE 08/15/2013 JACK YUAN DO K 461.9 SINUSITIS ACUTE 08/15/2013 JOSIAH RETAIL BUSINESS MANAGER, RASHEED S 461.9 SINUSITIS ACUTE 08/15/2013 JOSIAH RETAIL BUSINESS MANAGER, RASHEED S 461.9 SINUSITIS ACUTE 08/15/2013 ARIAS GRAJEDA MD 461.9 SINUSITIS ACUTE 08/15/2013 JOSIAH RETAIL BUSINESS MANAGER, RASHEED S 461.9 SINUSITIS ACUTE 08/15/2013 JOSIAH RETAIL BUSINESS MANAGER, RASHEED S 461.9 SINUSITIS ACUTE 08/15/2013 YUAN DO, JACK K 461.9 SINUSITIS ACUTE 08/15/2013 JOSIAH RETAIL BUSINESS MANAGER, RASHEED S 461.9 SINUSITIS ACUTE 08/15/2013 JOSIAH RETAIL BUSINESS MANAGER, RASHEED S 461.9 SINUSITIS ACUTE 08/15/2013 JOSIAH RETAIL BUSINESS MANAGER, RASHEED S 461.9 SINUSITIS ACUTE 09/04/2013 YUAN DO, JACK K 733.92 CHONDROMALACIA 09/04/2013 JOSIAH RETAIL BUSINESS MANAGER, RASHEED S 733.92 CHONDROMALACIA 09/04/2013 JOSIAH RETAIL BUSINESS MANAGER, RASHEED S 733.92 CHONDROMALACIA 09/04/2013 BERTHA ANAYA APRNA L 733 .92 CHONDROMALACIA 09/04/2013 JOSIAH RETAIL BUSINESS MANAGER, RASHEED S 733.92 CHONDROMALACIA 09/04/2013 JOSIAH RETAIL BUSINESS MANAGER, RASHEED S 733.92 CHONDROMALACIA 09/04/2013 YUAN DO, JACK K 733.92 CHONDROMALACIA 09/04/2013 JOSIAH RETAIL BUSINESS MANAGER, RASHEED S 733.92 CHONDROMALACIA 09/04/2013 JOSIAH RETAIL BUSINESS MANAGER, RASHEED S 733.92 CHONDROMALACIA 09/04/2013 NICCI ESCOTO, ARIAS 733.9 2 CHONDROMALACIA 09/04/2013 JOSIAH RETAIL BUSINESS MANAGER, RASHEED S 733.92 CHONDROMALACIA 09/04/2013 JOSIAH RETAIL BUSINESS MANAGER, RASHEED S 733.92 CHONDROMALACIA 09/04/2013 YUAN DO, JACK K 733.92 CHONDROMALACIA 09/04/2013 JOSIAH RETAIL BUSINESS MANAGER, RASHEED S 733.92 CHONDROMALACIA 09/04/2013 JOSIAH RETAIL BUSINESS MANAGER, RASHEED S 733.92 CHONDROMALACIA 09/04/2013 JOSIAH RETAIL BUSINESS MANAGER, RASHEED S 733.92 CHONDROMALACIA 09/11/2013 JOSIAH RETAIL BUSINESS MANAGER, RASHEED S 477.0 ALLERGIC RHINITIS DUE TO POLLEN 09/11/2013 JOSIAH RETAIL BUSINESS MANAGER, RASHEED S 477.0 ALLERGIC RHINITIS DUE TO POLLEN 09/11/2013 MADL RETAIL BUSINESS MANAGER, NANCY L 477 .0 ALLERGIC RHINITIS DUE TO POLLEN 09/11/2013 JOSIAH RETAIL BUSINESS MANAGER, RASHEED S 477.0 ALLERGIC RHINITIS DUE TO POLLEN 09/11/2013 JOSIAH RETAIL BUSINESS MANAGER, RASHEED S 477.0 ALLERGIC RHINITIS DUE TO POLLEN 09/11/2013 YUAN DO, JACK K 477.0 ALLERGIC RHINITIS DUE TO POLLEN 09/11/2013 JOSIAH RETAIL BUSINESS MANAGER, RASHEED S 477.0 ALLERGIC RHINITIS DUE TO POLLEN 09/11/2013 JOSIAH RETAIL BUSINESS MANAGER, RASHEED S 477.0 ALLERGIC RHINITIS DUE TO POLLEN 09/11/2013 ARIAS GRAJEDA MD 477.0 ALLERGIC RHINITIS DUE TO POLLEN 09/11/2013 JOSIAH RETAIL BUSINESS MANAGER, RASHEED S 477.0 ALLERGIC RHINITIS DUE TO POLLEN 09/11/2013 JOSIAH RETAIL BUSINESS MANAGER, RASHEED S 477.0 ALLERGIC RHINITIS DUE TO POLLEN 09/11/2013 YUAN DO, JACK K 477.0 ALLERGIC RHINITIS DUE TO POLLEN 09/11/2013 JOSIAH RETAIL BUSINESS MANAGER, RASHEED S 477.0 ALLERGIC RHINITIS DUE TO POLLEN 09/11/2013 JOSIAH RETAIL BUSINESS MANAGER, RASHEED S 477.0 ALLERGIC RHINITIS DUE TO POLLEN 09/11/2013 JOSIAH RETAIL BUSINESS MANAGER, RASHEED S 477.0 ALLERGIC RHINITIS DUE TO POLLEN 10/31/2013 DINO TILLMAN ASSOCIATE OF SCIENCE IN NURSING Ot 715. 36 LOC OSTEOARTH NOS-L/LEG 10/31/2013 DINO TILLMAN ASSOCIATE OF SCIENCE IN NURSING Ot 729. 89 MUSCSKEL SYMPT LIMB NEC 10/31/2013 DINO TILLMAN ASSOCIATE OF SCIENCE IN NURSING Ot 733. 92 CHONDROMALACIA 10/31/2013 DINO TILLMAN ASSOCIATE OF SCIENCE IN NURSING Ot V43. 65 KNEE JOINT REPLACEMENT STATUS 10/31/2013 DINO TILLMAN ASSOCIATE OF SCIENCE IN NURSING Ot V54. 81 AFTERCARE FOLLOWING JOINT REPLACEMENT 10/31/2013 DINO TLILMAN ASSOCIATE OF SCIENCE IN NURSING Ot V57. 1 PHYSICAL THERAPY NEC 11/17/2013 MADL KARINA LERNERNYA L 578 .1 BLOOD IN STOOL 11/17/2013 MADL RETAIL BUSINESS MANAGER, NANCY L 789 .06 ABDOMINAL PAIN EPIGASTRIC 11/17/2013 JOSIAH RETAIL BUSINESS MANAGER, RASHEED S 578.1 BLOOD IN STOOL 11/17/2013 JOSIAH RETAIL BUSINESS MANAGER, RASHEED S 789.06 ABDOMINAL PAIN EPIGASTRIC 11/17/2013 JOSIAH RETAIL BUSINESS MANAGER, RASHEED S 578.1 BLOOD IN STOOL 11/17/2013 JOSIAH RETAIL BUSINESS MANAGER, RASHEED S 789.06 ABDOMINAL PAIN EPIGASTRIC 11/17/2013 YUAN DO, JACK K 578.1 BLOOD IN STOOL 11/17/2013 YUAN DO, JACK K 789.06 ABDOMINAL PAIN EPIGASTRIC 11/17/2013 JOSIAH RETAIL BUSINESS MANAGER, RASHEED S 578.1 BLOOD IN STOOL 11/17/2013 JOSIAH RETAIL BUSINESS MANAGER, RASHEED S 789.06 ABDOMINAL PAIN EPIGASTRIC 11/17/2013 JOSIAH RETAIL BUSINESS MANAGER, RASHEED S 578.1 BLOOD IN STOOL 11/17/2013 JOSIAH RETAIL BUSINESS MANAGER, RASHEED S 789.06 ABDOMINAL PAIN EPIGASTRIC 11/17/2013 ARIAS GRAJEDA MD 578.1 BLOOD IN STOOL 11/17/2013 ARIAS GRAJEDA MD 789.0 6 ABDOMINAL PAIN EPIGASTRIC 11/17/2013 JOSIAH RETAIL BUSINESS MANAGER, RASHEED S 578.1 BLOOD IN STOOL 11/17/2013 JOSIAH RETAIL BUSINESS MANAGER, RASHEED S 789.06 ABDOMINAL PAIN EPIGASTRIC 11/17/2013 JOSIAH RETAIL BUSINESS MANAGER, RASHEED S 578.1 BLOOD IN STOOL 11/17/2013 JOSIAH RETAIL BUSINESS MANAGER, RASHEED S 789.06 ABDOMINAL PAIN EPIGASTRIC 11/17/2013 YUAN DO, JACK K 578.1 BLOOD IN STOOL 11/17/2013 YUAN DO, JACK K 789.06 ABDOMINAL PAIN EPIGASTRIC 11/17/2013 JOSIAH RETAIL BUSINESS MANAGER, RASHEED S 578.1 BLOOD IN STOOL 11/17/2013 JOSIAH RETAIL BUSINESS MANAGER, RASHEED S 789.06 ABDOMINAL PAIN EPIGASTRIC 11/17/2013 JOSIAH RETAIL BUSINESS MANAGER, RASHEED S 578.1 BLOOD IN STOOL 11/17/2013 JOSIAH RETAIL BUSINESS MANAGER, RASHEED S 789.06 ABDOMINAL PAIN EPIGASTRIC 11/17/2013 JOSIAH RETAIL BUSINESS MANAGER, RASHEED S 578.1 BLOOD IN STOOL 11/17/2013 JOSIAH RETAIL BUSINESS MANAGER, RASHEED S 789.06 ABDOMINAL PAIN EPIGASTRIC 12/17/2013 YUAN DO, JACK K 354.0 CARPAL TUNNEL SYNDROME 12/17/2013 JOSIAH RETAIL BUSINESS MANAGER, RASHEED S 354.0 CARPAL TUNNEL SYNDROME 12/17/2013 JOSIAH RETAIL BUSINESS MANAGER, RASHEED S 354.0 CARPAL TUNNEL SYNDROME 12/17/2013 ARIAS GRAJEDA MD 354.0 CARPAL TUNNEL SYNDROME 12/17/2013 JOSIAH RETAIL BUSINESS MANAGER, RASHEED S 354.0 CARPAL TUNNEL SYNDROME 12/17/2013 JOSIAH RETAIL BUSINESS MANAGER, RASHEED S 354.0 CARPAL TUNNEL SYNDROME 12/17/2013 JACK YUAN DO K 354.0 CARPAL TUNNEL SYNDROME 12/17/2013 JOSIAH RETAIL BUSINESS MANAGER, RASHEED S 354.0 CARPAL TUNNEL SYNDROME 12/17/2013 JOSIAH RETAIL BUSINESS MANAGER, RASHEED S 354.0 CARPAL TUNNEL SYNDROME 12/17/2013 JOSIAH RETAIL BUSINESS MANAGER, RASHEED S 354.0 CARPAL TUNNEL SYNDROME 12/18/2013 JACK YUAN DO K V76.10 BREAST CANCER SCREENING 12/18/2013 JOSIAH RETAIL BUSINESS MANAGER, RASHEED S V76.10 BREAST CANCER SCREENING 12/18/2013 JOSIAH RETAIL BUSINESS MANAGER, RASHEED S V76.10 BREAST CANCER SCREENING 12/18/2013 ARIAS GRAJEDA MD V76.1 0 BREAST CANCER SCREENING 12/18/2013 JOSIAH RETAIL BUSINESS MANAGER, RASHEED S V76.10 BREAST CANCER SCREENING 12/18/2013 JOSIAH RETAIL BUSINESS MANAGER, RASHEED S V76.10 BREAST CANCER SCREENING 12/18/2013 JACK YUAN DO K V76.10 BREAST CANCER SCREENING 12/18/2013 JOSIAH RETAIL BUSINESS MANAGER, RASHEED S V76.10 BREAST CANCER SCREENING 12/18/2013 JOSIAH RETAIL BUSINESS MANAGER, RASHEED S V76.10 BREAST CANCER SCREENING 12/18/2013 JOSIAH RETAIL BUSINESS MANAGER, RASHEED S V76.10 BREAST CANCER SCREENING 01/05/2014 JOSIAH RETAIL BUSINESS MANAGER, RASHEED S 356.9 NEUROPATHY 01/05/2014 JOSIAH RETAIL BUSINESS MANAGER, RASHEED S 599.0 URINARY TRACT INFECTION 01/05/2014 JOSIAH RETAIL BUSINESS MANAGER, RASHEED S 719.47 PAIN- FOOT 01/05/2014 JOSIAH RETAIL BUSINESS MANAGER, RASHEED S 356.9 NEUROPATHY 01/05/2014 JOSIAH RETAIL BUSINESS MANAGER, RASHEED S 599.0 URINARY TRACT INFECTION 01/05/2014 JOSIAH RETAIL BUSINESS MANAGER, RASHEED S 719.47 PAIN- FOOT 01/05/2014 ARIAS GRAJEDA MD 356.9 NEUROPATHY 01/05/2014 ARIAS GRAJEDA MD 599.0 URINARY TRACT INFECTION 01/05/2014 ARIAS GRAJEDA MD 719.4 7 PAIN- FOOT 01/05/2014 JOSIAH RETAIL BUSINESS MANAGER, RASHEED S 356.9 NEUROPATHY 01/05/2014 JOSIAH RETAIL BUSINESS MANAGER, RASHEED S 599.0 URINARY TRACT INFECTION 01/05/2014 JOSIAH RETAIL BUSINESS MANAGER, RASHEED S 719.47 PAIN- FOOT 01/05/2014 JOSIAH RETAIL BUSINESS MANAGER, RASHEED S 356.9 NEUROPATHY 01/05/2014 JOSIAH RETAIL BUSINESS MANAGER, RASHEED S 599.0 URINARY TRACT INFECTION 01/05/2014 JOSIAH RETAIL BUSINESS MANAGER, RASHEED S 719.47 PAIN- FOOT 01/05/2014 YUAN DO, JACK K 356.9 NEUROPATHY 01/05/2014 YUAN DO, JACK K 599.0 URINARY TRACT INFECTION 01/05/2014 YUAN DO, JACK K 719.47 PAIN- FOOT 01/05/2014 JOSIAH RETAIL BUSINESS MANAGER, RASHEED S 356.9 NEUROPATHY 01/05/2014 JOSIAH RETAIL BUSINESS MANAGER, RASHEED S 599.0 URINARY TRACT INFECTION 01/05/2014 JOSIAH RETAIL BUSINESS MANAGER, RASHEED S 719.47 PAIN- FOOT 01/05/2014 JOSIAH RETAIL BUSINESS MANAGER, RASHEED S 356.9 NEUROPATHY 01/05/2014 JOSIAH RETAIL BUSINESS MANAGER, RASHEED S 599.0 URINARY TRACT INFECTION 01/05/2014 JOSIAH RETAIL BUSINESS MANAGER, RASHEED S 719.47 PAIN- FOOT 01/05/2014 JOSIAH RETAIL BUSINESS MANAGER, RASHEED S 356.9 NEUROPATHY 01/05/2014 JOSIAH RETAIL BUSINESS MANAGER, RASHEED S 599.0 URINARY TRACT INFECTION 01/05/2014 JOSIAH RETAIL BUSINESS MANAGER, RASHEED S 719.47 PAIN- FOOT 01/30/2014 JAMIE [...] GRAJEDA MD 455.6 HEMORRHOIDS NOS 02/02/2014 JOSIAH RETAIL BUSINESS MANAGER, RASHEED S 211.9 POLYP- GI 02/02/2014 JOSIAH RETAIL BUSINESS MANAGER, RASHEED S 455.6 HEMORRHOIDS NOS 02/02/2014 JOSIAH RETAIL BUSINESS MANAGER, RASHEED S 211.9 POLYP- GI 02/02/2014 JOSIAH RETAIL BUSINESS MANAGER, RASHEED S 455.6 HEMORRHOIDS NOS 02/02/2014 YUAN DO, JACK K 211.9 POLYP- GI 02/02/2014 YUAN DO, JACK K 455.6 HEMORRHOIDS NOS 02/02/2014 JOSIAH RETAIL BUSINESS MANAGER, RASHEED S 211.9 POLYP- GI 02/02/2014 JOSIAH RETAIL BUSINESS MANAGER, RASHEED S 455.6 HEMORRHOIDS NOS 02/02/2014 JOSIAH RETAIL BUSINESS MANAGER, RASHEED S 211.9 POLYP- GI 02/02/2014 JOSIAH RETAIL BUSINESS MANAGER, RASHEED S 455.6 HEMORRHOIDS NOS 02/02/2014 JOSIAH RETAIL BUSINESS MANAGER, RASHEED S 211.9 POLYP- GI 02/02/2014 JOSIAH RETAIL BUSINESS MANAGER, RASHEED S 455.6 HEMORRHOIDS NOS 02/10/2014 JOSEE ESCOTO FACC, ROGER FACP CCDS Ot 272.4 HYPERLIPIDEMIA NEC/NOS 02/10/2014 JOSEE ESCOTO FACC, ROGER FACP CCDS Ot 278.00 OBESITY, NOS 02/10/2014 JOSEE ESCOTO FACC, ROGER FACP CCDS Ot 305.1 TOBACCO USE DISORDER 02/10/2014 JOSEE ESCOTO FACC, ROGER FACP CCDS Ot 401.9 HYPERTENSION NOS 02/10/2014 JOSEE ESCOTO FACC, ROGER FACP CCDS Ot 530.81 ESOPHAGEAL REFLUX 02/10/2014 ROGER TRIPP MD, FACC FACP CCDS Ot 786.50 CHEST PAIN NOS 02/10/2014 ROGER TRIPP MD, FACC FACP CCDS Ot V17.3 FAM HX-ISCHEM HEART DIS 02/10/2014 JOSEE ESCOTO FACLuciana, ROGER KIMP CCDS Ot V58.69 OTH MED,LT,CURRENT USE 02/10/2014 JOSEE ESCOTO FACLuciana, ROGER FACP CCDS Ot V85.37 BODY MASS INDEX 37.0-37.9, ADULT 03/04/2014 NESS ESCOTO, SOSA Shelby Ot 49 6 CHR AIRWAY OBSTRUCT NEC 03/04/2014 SOSA GUSMAN MD Ot 717.40 DERANG LAT MENISCUS NOS 03/04/2014 SOSA GUSMAN MD Ot V57.1 PHYSICAL THERAPY NEC 03/04/2014 SOSA GUSMAN MD Ot V58.69 OTH MED,LT,CURRENT USE 03/19/2014 RASHEED RAHMAN APRN S 729.82 CRAMP OF LIMB 03/19/2014 NICOLA RAHMAN APRNA S V04.81 FLU SHOT 03/19/2014 NAKIA RAHMAN APRNNDA S V15.82 NICOTINE ABUSE 03/19/2014 YUAN DO JACK K 729.82 CRAMP OF LIMB 03/19/2014 YUAN DO JACK K V04.81 FLU SHOT 03/19/2014 YUAN DO JACK K V15.82 NICOTINE ABUSE 03/19/2014 NAKIA RAHMAN APRNNDA S 729.82 CRAMP OF LIMB 03/19/2014 NAKIA RAHMAN APRNNDA S V04.81 FLU SHOT 03/19/2014 NAKIA RAHMAN APRNNDA S V15.82 NICOTINE ABUSE 03/19/2014 NAKIA RAHMAN APRNNDA S 729.82 CRAMP OF LIMB 03/19/2014 NAKIA RAHMAN APRNNDA S V04.81 FLU SHOT 03/19/2014 NAKIA RAHMAN APRNNDA S V15.82 NICOTINE ABUSE 03/19/2014 NAKIA RAHMAN APRNNDA S 729.82 CRAMP OF LIMB 03/19/2014 NAKIA RAHMAN APRNNDA S V04.81 FLU SHOT 03/19/2014 NAKIA RAHMAN APRNNDA S V15.82 NICOTINE ABUSE 03/26/2014 NAKIA RAHMAN APRNNDA S 788.1 DYSURIA 03/26/2014 YUAN DO, JACK K 788.1 DYSURIA 03/26/2014 JOSIAH LERNER, RASHEED S 788.1 DYSURIA 03/26/2014 JOSIAH LERNER, RASHEED S 788.1 DYSURIA 03/26/2014 JOSIAH LERNER RASHEED S 788.1 DYSURIA 04/07/2014 RASHEED RAHMAN Ot 719.46 JOINT PAIN-L/LEG 04/07/2014 RASHEED RAHMAN Ot V57.1 PHYSICAL THERAPY NEC 04/10/2014 LIBERTY SANDOVAL RETAIL BUSINESS MANAGER Ot 491.21 OBSTR CHRONIC BRONCHITIS, W (ACUTE) EXAC 04/10/2014 LIBERTY SANDOVAL RETAIL BUSINESS MANAGER Ot 786.05 SHORTNESS OF BREATH 04/10/2014 LIBERTY SANDOVAL APRN Ot 787.02 NAUSEA ALONE 04/10/2014 LIBERTY SANDOVAL RETAIL BUSINESS MANAGER Ot 787.91 DIARRHEA 04/17/2014 YUAN DO, JACK K 110.1 ONYCHOMYCOSIS 04/17/2014 YUAN DO, JACK K 706.8 XEROSIS 04/17/2014 JOSIAH LERNER, RASHEED S 110.1 ONYCHOMYCOSIS 04/17/2014 JOSIAH LERNER, RASHEED S 706.8 XEROSIS 04/17/2014 JOSIAH LERNER, RASHEED S 110.1 ONYCHOMYCOSIS 04/17/2014 JOSIAH LERNER, RASHEED S 706.8 XEROSIS 04/17/2014 JOSIAH LERNER, RASHEED S 110.1 ONYCHOMYCOSIS 04/17/2014 JOSIAH LERNER, RASHEED S 706.8 XEROSIS 06/03/2014 JOSIAH LERNER RASHEED S 466.0 BRONCHITIS, ACUTE 06/03/2014 JOSIAH LERNER, RASHEED S 466.0 BRONCHITIS, ACUTE 06/03/2014 JOSIAH LERNER RASHEED S 466.0 BRONCHITIS, ACUTE 07/06/2014 NAKIA RAHMAN APRNNDA S 719.41 PAIN- SHOULDER 07/27/2014 Ot 786.50 [...] OBSTRUCT NEC 09/23/2014 RYAN JONES MD Ot 530.8 1 ESOPHAGEAL REFLUX 09/23/2014 RYAN JONES MD Ot 596.5 1 HYPERTONICITY OF BLADDER 09/23/2014 RYAN JONES MD Ot 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 09/23/2014 RYAN JONES MD Ot 788.3 0 UNSPECIFIED URINARY INCONTINENCE 10/12/2014 Ot 786.50 10/12/2014 Ot 715.36 10/12/2014 Ot 791.9 10/12/2014 Ot V57.1 10/12/2014 Ot V57.21 10/12/2014 Ot V72.63 10/12/2014 Ot V74.8 10/12/2014 RASHEED RAHMAN Ot V76.12 10/12/2014 RASHEED RAHMAN Ot V76.12 10/12/2014 SAMEERA ESCOTO, JAMIE Ot V72.84 10/12/2014 NESS ESCOTO, SOSA Shelby Ot 717.7 10/12/2014 NESS ESCOTO, SOSA Shelby Ot V72.84 10/12/2014 NESS ESCOTO, SOSA Shelby Ot V74.8 10/12/2014 NESS ESCOTO, SOSA Shelby Ot 727.61 10/12/2014 RYAN JONES MD Ot 599.8 2 10/12/2014 RYAN JONES MD Ot 788.3 0 10/12/2014 KAREN ESCOTO, RYAN A Ot V72.8 4 10/12/2014 KAREN ESCOTO, RYAN A Ot V74.8 10/29/2014 Ot 786.50 10/29/2014 Ot 715.36 10/29/2014 Ot 791.9 10/29/2014 Ot V57.1 10/29/2014 Ot V57.21 10/29/2014 Ot V72.63 10/29/2014 Ot V74.8 10/29/2014 RASHEED RAHMAN Ot V76.12 10/29/2014 RASHEED RAHMAN Ot V76.12 10/29/2014 SAMEERA ESCOTO, JAMIE Ot V72.84 10/29/2014 NESS ESCOTO, SOSA P Ot 717.7 10/29/2014 NESS ESCOTO, OSSA P Ot V72.84 10/29/2014 NESS ESCOTO, SOSA P Ot V74.8 10/29/2014 NESS ESCOTO, SOSA P Ot 727.61 10/29/2014 KAREN ESCOTO, RYAN Sunni Ot 599.8 2 10/29/2014 KAREN ESCOTO, RYAN A Ot 788.3 0 10/29/2014 KAREN ESCOTO, RYAN A Ot V72.8 4 10/29/2014 KAREN ESCOTO, RYAN Sunni Ot V74.8 10/29/2014 GELLENDER DO, MORAIMA Moeller Ot 719.46 10/29/2014 GELLENDER DO, MORAIMA A Ot 724.2 10/29/2014 GELLENDER DO, MORIAMA A Ot 959.7 10/29/2014 GELLENDER DO, MORAIMA Moeller Ot E000.8 10/29/2014 GELLENDER DO, MORAIMA A Ot E849.0 10/29/2014 GELLENDER DO, MORAIMA A Ot E888.9 10/29/2014 GELLENDER DO, MORAIMA A Ot 789.01 11/09/2014 GELLENDER DO, MORAIMA A Ot 719.46 11/09/2014 GELLENDER DO, MORAIMA A Ot 724.2 11/09/2014 GELLENDER DO, MORAIMA A Ot 959.7 11/09/2014 GELLENDER DO, MORAIMA Sunni Ot E000.8 11/09/2014 GELLENDER DO, MORAIMA Moeller [...] RUFINA ESCOTO, NARAYAN Marr Ot V74.8 12/03/2014 [facility] MORAIMA Moeller Ot 575.8 12/05/2014 RUFINA ESCOTO, NARAYAN Marr Ot 575.8 12/05/2014 RUFINA ESCOTO, NARAYAN M Ot V72.63 12/05/2014 RUFINA ESCOTO, NARAYAN M Ot V72.81 12/05/2014 RUFINA ESCOTO, NARAYAN Marr Ot V74.8 01/13/2015 SOSA GUSMAN MD Ot 272.4 HYPERLIPIDEMIA NEC/NOS 01/13/2015 SOSA GUSMAN MD Ot 305.1 TOBACCO USE DISORDER 01/13/2015 SOSA GUSMAN MD Ot 401.9 HYPERTENSION NOS 01/13/2015 SOSA GUSMAN MD Ot 49 6 CHR AIRWAY OBSTRUCT NEC 01/13/2015 SOSA GUSMAN MD Ot 715.31 LOC OSTEOARTH NOS-SHLDER 01/13/2015 SOSA GUSMAN MD Ot 840.7 (SLAP) SUPERIOR [...] V76.12 03/17/2015 RASHEED RAHMAN Ot V76.12 03/17/2015 JAMIE LOVE MD Ot V72.84 03/17/2015 NESS ESCOTO, SOSA Shelby Ot 717.7 03/17/2015 NESS ESCOTO, SOSA Shelby Ot V72.84 03/17/2015 NESS ESCOTO, SOSA Shelby Ot V74.8 03/17/2015 NESS ESCOTO, SOSA Shelby Ot 727.61 03/17/2015 KAREN ESCOTO, RYAN Moeller Ot 599.8 2 03/17/2015 KAREN ESCOTO, RYAN Moeller Ot 788.3 0 03/17/2015 RYAN JONES MD Ot V72.8 4 03/17/2015 RYAN JONES MD Ot V74.8 03/17/2015 MORAIMA NOEL DO Ot 719.46 03/17/2015 MORAIMA NOEL DO Ot 724.2 03/17/2015 GELLENDER DO, MORAIMA Moeller Ot 959.7 03/17/2015 GELLENDER DO, MORAIMA Moeller Ot E000.8 03/17/2015 GELLENDER DO, MORAIMA Moeller Ot E849.0 03/17/2015 GELLENDER DO, MORAIMA Moeller Ot E888.9 03/17/2015 GELLENDER DO, MORAIMA Moeller Ot 789.01 03/17/2015 GELLENDER DO, MORAIMA Moeller Ot 575.8 03/17/2015 RUFINA ESCOTO, NARAYAN Marr Ot 575.8 03/17/2015 RUFINA ESCOTO, NARAYAN Marr Ot V72.63 03/17/2015 RUFINA ESCOTO, NARAYAN M Ot V72.81 03/17/2015 RUFINA ESCOTO, NARAYAN Marr Ot V74.8 03/17/2015 NESS ESCOTO, SOSA Shelby Ot 715.31 03/17/2015 NESS ESCOTO, SOSA Shelby Ot 727.61 03/17/2015 NESS ESCOTO, SOSA Shelby Ot 840.7 03/17/2015 NESS ESCOTO, SOSA Shelby Ot V72.83 03/24/2015 SOSA GUSMAN MD Ot E78.5 HYPERLIPIDEMIA, UNSPECIFIED 03/24/2015 SOSA GUSMAN MD Ot G56.02 CARPAL TUNNEL SYNDROME, LEFT UPPER LIMB 03/24/2015 SOSA GUSMAN MD Ot I1 0 ESSENTIAL (PRIMARY) HYPERTENSION 03/24/2015 SOSA GUSMAN MD Ot J44.9 CHRONIC OBSTRUCTIVE PULMONARY DISEASE, U 04/08/2015 RASHEED RAHMAN Ot Z12.31 04/13/2015 RASHEED RAHMAN Ot Z12.31 04/21/2015 SOSA GUSMAN MD Ot E78.5 HYPERLIPIDEMIA, UNSPECIFIED 04/21/2015 SOSA GUSMAN MD Ot G56.01 CARPAL TUNNEL SYNDROME, RIGHT UPPER LIMB 04/21/2015 SOSA GUSMAN MD Ot I1 0 ESSENTIAL (PRIMARY) HYPERTENSION 04/21/2015 SOSA GUSMAN MD Ot J44.9 CHRONIC OBSTRUCTIVE PULMONARY DISEASE, U 04/21/2015 SOSA GUSMAN MD Ot Z11.2 ENCOUNTER FOR SCREENING FOR OTHER BACTER 04/23/2015 TRAVISYOUSUFDER DOMORAIMA Ot Z13.89 04/23/2015 GELLENDER DO, MORAIMA Moeller Ot Z13.89 05/21/2015 GELLENDER DO, MORAIMA Moeller Ot J40 05/21/2015 GELLENDER DO, MORAIMA Moeller Ot J44.9 05/25/2015 GELLENDER DO, MORAIMA Moeller Ot J40 05/25/2015 GELLENDER DO, MORAIMA Moeller Ot J44.9 05/28/2015 GELLENDER DO, MORAIMA Moeller Ot N39.0 06/16/2015 GELLENDER DO, MORAIMA Moeller Ot N39.0 06/22/2015 GELLENDER DO, MORAIMA Moeller Ot N39.0 11/25/2015 SOSA GUSMAN MD Ot [...] HYPERLIPIDEMIA, UNSPECIFIED 12/08/2015 SOSA GUSMAN MD Ot I1 0 ESSENTIAL (PRIMARY) HYPERTENSION 12/08/2015 SOSA GUSMAN MD Ot J44.9 CHRONIC OBSTRUCTIVE PULMONARY DISEASE, U 12/08/2015 SOSA GUSMAN MD Ot M19.012 PRIMARY OSTEOARTHRITIS, LEFT SHOULDER 12/08/2015 SOSA GUSMAN MD Ot M75.41 IMPINGEMENT SYNDROME OF RIGHT SHOULDER 12/08/2015 SOSA GUSMAN MD Ot 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 12/09/2015 SOSA GUSMAN MD Ot E78.5 HYPERLIPIDEMIA, UNSPECIFIED 12/09/2015 SOSA GUSMAN MD Ot I1 0 ESSENTIAL (PRIMARY) HYPERTENSION 12/09/2015 SOSA GUSMAN MD Ot J44.9 CHRONIC OBSTRUCTIVE PULMONARY DISEASE, U 12/09/2015 SOSA GUSMAN MD Ot M19.012 PRIMARY OSTEOARTHRITIS, LEFT SHOULDER 12/09/2015 SOSA GUSMAN MD Ot M75.41 IMPINGEMENT SYNDROME OF RIGHT SHOULDER 12/09/2015 SOSA GUSMAN MD Ot 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 12/10/2015 SOSA GUSMAN MD Ot E78.5 HYPERLIPIDEMIA, UNSPECIFIED 12/10/2015 SOSA GUSMAN MD Ot I1 0 ESSENTIAL (PRIMARY) HYPERTENSION 12/10/2015 SOSA GUSMAN MD [...] LABRUM LESION OF RIGHT 01/04/2016 LIBERTY SANDOVAL RETAIL BUSINESS MANAGER Ot F17.210 NICOTINE DEPENDENCE, CIGARETTES, UNCOMPL 01/04/2016 LIBERTY SANDOVAL RETAIL BUSINESS MANAGER Ot T78.40XA ALLERGY, UNSPECIFIED, INITIAL ENCOUNTER 01/04/2016 Ot 715.36 LOC OSTEOARTH NOS-L/LEG 01/04/2016 Ot 791.9 ABN URINE FINDINGS NEC 01/04/2016 Ot V57.1 PHYS ICAL THERAPY NEC 01/04/2016 Ot V57.21 ENC OUNTER FOR OCCUPATIONAL THERAPY 01/04/2016 Ot V72.63 PRE -PROCEDURAL LABORATORY EXAMINATION 01/04/2016 Ot V74.8 SCRE EN-BACTERIAL DIS [facility] 01/04/2016 RASHEED RAHMAN Ot V76.12 OTH SCREEN [...] RUPTURE 01/04/2016 KAREN ESCOTO, RYAN Moeller Ot 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 01/04/2016 KAREN ESCOTO, RYAN Moeller Ot 788.3 0 UNSPECIFIED URINARY INCONTINENCE 01/04/2016 KAREN ESCOTO, RYAN Moeller Ot V72.8 4 EXAM PRE-OPERATIVE NOS 01/04/2016 KAREN ESCOTO, RYAN Moeller Ot V74.8 SCREEN-BACTERIAL DIS NEC 01/04/2016 MORAIMA NOEL DO Ot 719.46 JOINT PAIN-L/LEG 01/04/2016 MORAIMA NOEL DO Ot 724.2 LUMBAGO 01/04/2016 GELLENDER DOMORAIMA Ot 959.7 LOWER LEG INJURY NOS 01/04/2016 BERT MORAIMA HDEZ Ot E000.8 OTHER EXTERNAL CAUSE STATUS 01/04/2016 BERT MORAIMA HDEZ Ot E849.0 ACCIDENT IN HOME 01/04/2016 BERT MORAIMA HDEZ Ot E888.9 FALL NOS 01/04/2016 BERT MORAIMA HDEZ Ot 789.01 ABDOMINAL PAIN, RIGHT UPPER QUADRANT 01/04/2016 MORAIMA NOEL DO Ot 575.8 DIS OF GALLBLADDER NEC 01/04/2016 RUFINA ESCOTO, NARAYAN Marr Ot 575.8 DIS OF GALLBLADDER NEC 01/04/2016 RUFINA ESCOTO, NARAYAN Marr Ot V72.63 PRE-PROCEDURAL LABORATORY EXAMINATION 01/04/2016 RUFINA ESCOTO, NARAYAN Marr Ot V72.81 [id number] CARDIOVASCULAR 01/04/2016 RUFINA ESCOTO, NARAYAN Marr Ot V74.8 SCREEN-BACTERIAL DIS NEC 01/04/2016 NESS ESCOTO, SOSA Shelby Ot 715.31 LOC OSTEOARTH NOS-SHLDER 01/04/2016 SOSA GUSMAN MD Ot 727.61 ROTATOR CUFF RUPTURE 01/04/2016 NESS ESCOTO, SOSA Shelby Ot 840.7 (SLAP) SUPERIOR GLENOID LABRUM LESIONS 01/04/2016 SOSA GUSMAN MD Ot V72.83 EXAM PRE-OPERATIVE NEC 01/04/2016 Ot G56.02 CAR PAL TUNNEL SYNDROME, LEFT UPPER LIMB 01/04/2016 Ot Z01.818 EN COUNTER FOR OTHER PREPROCEDURAL EXAMIN 01/04/2016 Ot Z11.2 ENCO UNTER FOR SCREENING FOR OTHER BACTER 01/04/2016 RASHEED RAHMAN Ot Z12.31 ENCNTR SCREEN MAMMOGRAM FOR MALIGNANT NE 01/04/2016 MORAIMA NOEL DO Ot Z13.89 ENCOUNTER FOR SCREENING FOR OTHER DISORD 01/04/2016 SOSA GUSMAN MD Ot G56.01 CARPAL TUNNEL SYNDROME, RIGHT UPPER LIMB 01/04/2016 SOSA GUSMAN MD Ot Z01.818 ENCOUNTER FOR [...] UNSPECIFIED, INITIAL ENCOUNTER 01/13/2016 DINO TILLMAN Ot R22. 31 LOCALIZED SWELLING, MASS AND LUMP, RIGHT 02/04/2016 SOSA GUSMAN MD Ot S43.431D SUPERIOR GLENOID LABRUM LESION OF RIGHT 02/04/2016 SOSA GUSMAN MD Ot S43.431D SUPERIOR GLENOID LABRUM LESION OF RIGHT 02/04/2016 DINO TILLMAN Ot R22. 31 LOCALIZED SWELLING, MASS AND LUMP, RIGHT 02/08/2016 SOSA GUSMAN MD Ot S43.431D SUPERIOR GLENOID LABRUM LESION OF RIGHT 02/08/2016 TILLMAN, DINO D ASSOCIATE OF SCIENCE IN NURSING Ot R22. 31 LOCALIZED SWELLING, MASS AND LUMP, RIGHT 02/21/2016 NESS ESCOTO, SOSA Shelby Ot S43.431D SUPERIOR GLENOID LABRUM LESION OF RIGHT 04/03/2016 Ot 715.36 LOC OSTEOARTH NOS-L/LEG 04/03/2016 Ot 791.9 ABN URINE FINDINGS NEC 04/03/2016 Ot V57.1 PHYS ICAL THERAPY NEC 04/03/2016 Ot V57.21 ENC OUNTER FOR OCCUPATIONAL THERAPY 04/03/2016 Ot V72.63 PRE -PROCEDURAL LABORATORY EXAMINATION 04/03/2016 Ot V74.8 SCRE EN-BACTERIAL DIS NEC 04/03/2016 RASHEED RAHMAN Ot V76.12 OTH SCREEN MAMMO-MALIGN NEOPLASM OF SAMANTHA 04/03/2016 RASHEED RAHMAN Ot V76.12 OTH SCREEN MAMMO-MALIGN NEOPLASM OF SAMANTHA 04/03/2016 JAMIE LOVE MD Ot V72.84 EXAM PRE-OPERATIVE NOS 04/03/2016 SOSA GUSMAN MD Ot 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 PATELLAE 04/03/2016 SOSA GUSMAN MD Ot V72.84 EXAM PRE-OPERATIVE NOS 04/03/2016 SOSA GUSMAN MD Ot V74.8 SCREEN-BACTERIAL DIS NEC 04/03/2016 SOSA GUSMAN MD Ot 727.61 ROTATOR CUFF RUPTURE 04/03/2016 RYAN JONES MD Ot 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 04/03/2016 RYAN JONES MD Ot 788.3 0 UNSPECIFIED URINARY INCONTINENCE 04/03/2016 RYAN JONES MD Ot V72.8 4 EXAM PRE-OPERATIVE NOS 04/03/2016 RYAN JONES MD Ot V74.8 SCREEN-BACTERIAL DIS NEC 04/03/2016 MORAIMA NOEL DO Ot 719.46 JOINT PAIN-L/LEG 04/03/2016 MORAIMA NOEL DO Ot 724.2 LUMBAGO 04/03/2016 MORAIMA NOEL DO Ot 959.7 LOWER LEG INJURY NOS 04/03/2016 MORAIMA NOEL DO Ot E000.8 OTHER EXTERNAL CAUSE STATUS 04/03/2016 MORAIMA NOEL DO Ot E849.0 ACCIDENT IN HOME 04/03/2016 BERT MORAIMA HDEZ Ot E888.9 FALL NOS 04/03/2016 MORAIMA NOEL DO Ot 789.01 ABDOMINAL PAIN, RIGHT UPPER QUADRANT 04/03/2016 MORAIMA NOEL DO Ot 575.8 DIS OF GALLBLADDER NEC 04/03/2016 RUFINA ESCOTO, NARAYAN Marr Ot 575.8 DIS OF GALLBLADDER NEC 04/03/2016 RUFINA ESCOTO, NARAYAN Marr Ot V72.63 PRE-PROCEDURAL LABORATORY EXAMINATION 04/03/2016 RUFINA ESCOTO, NARAYAN Marr Ot V72.81 [id number] CARDIOVASCULAR 04/03/2016 RUFINA ESCOTO, NARAYAN Marr Ot V74.8 SCREEN-BACTERIAL DIS NEC 04/03/2016 NESS ESCOTO, SOSA Shelby Ot 715.31 LOC OSTEOARTH NOS-SHLDER 04/03/2016 NESS ESCOTO, SOSA Shelby Ot 727.61 ROTATOR CUFF RUPTURE 04/03/2016 SOSA GUSMAN MD Ot 840.7 (SLAP) SUPERIOR GLENOID LABRUM LESIONS 04/03/2016 NESS ESCOTO, SOSA Shelby Ot V72.83 EXAM PRE-OPERATIVE NEC 04/03/2016 Ot G56.02 CAR PAL TUNNEL SYNDROME, LEFT UPPER LIMB 04/03/2016 Ot Z01.818 EN COUNTER FOR OTHER PREPROCEDURAL EXAMIN 04/03/2016 Ot Z11.2 ENCO UNTER FOR SCREENING FOR OTHER BACTER 04/03/2016 RASHEED [...] URINARY TRACT INFECTION, SITE NOT SPECIF 04/03/2016 TILLMAN, DINO D ASSOCIATE OF SCIENCE IN NURSING Ot R22. 31 LOCALIZED SWELLING, MASS AND LUMP, RIGHT 04/03/2016 RASHEED RAHMAN ASSOCIATE OF SCIENCE IN NURSING Ot Z12.31 ENCNTR SCREEN MAMMOGRAM FOR MALIGNANT NE 04/03/2016 RASHEED RAHMAN ASSOCIATE OF SCIENCE IN NURSING Ot Z12.31 ENCNTR SCREEN MAMMOGRAM FOR MALIGNANT NE 04/04/2016 RASHEED RAHMAN ASSOCIATE OF SCIENCE IN NURSING Ot Z12.31 ENCNTR SCREEN MAMMOGRAM FOR MALIGNANT NE 04/12/2016 Ot 715.36 LOC OSTEOARTH NOS-L/LEG 04/12/2016 Ot 791.9 ABN URINE FINDINGS NEC 04/12/2016 Ot V57.1 PHYS ICAL THERAPY NEC 04/12/2016 Ot V57.21 ENC OUNTER FOR OCCUPATIONAL THERAPY 04/12/2016 Ot V72.63 PRE -PROCEDURAL LABORATORY EXAMINATION 04/12/2016 Ot V74.8 SCRE EN-BACTERIAL DIS NEC 04/12/2016 RASHEED RAHMAN ASSOCIATE OF SCIENCE IN NURSING Ot V76.12 OTH SCREEN MAMMO-MALIGN NEOPLASM OF SAMANTHA 04/12/2016 RASHEED RAHMAN ASSOCIATE OF SCIENCE IN NURSING Ot V76.12 OTH SCREEN MAMMO-MALIGN NEOPLASM OF SAMANTHA 04/12/2016 SAMEERA ESCOTO, JAMIE Ot V72.84 EXAM PRE-OPERATIVE NOS 04/12/2016 NESS ESCOTO, SOSA Shelby Ot 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 PATELLAE 04/12/2016 SOSA GUSMAN MD Ot V72.84 EXAM PRE-OPERATIVE NOS 04/12/2016 SOSA GUSMAN MD Ot V74.8 SCREEN-BACTERIAL DIS NEC 04/12/2016 SOSA GUSMAN MD Ot 727.61 ROTATOR CUFF RUPTURE 04/12/2016 RYAN JONES MD Ot 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 04/12/2016 RYAN JONES MD Ot 788.3 0 UNSPECIFIED URINARY INCONTINENCE 04/12/2016 RYAN JONES MD Ot V72.8 4 EXAM PRE-OPERATIVE NOS 04/12/2016 RYAN JONES MD Ot V74.8 SCREEN-BACTERIAL DIS NEC 04/12/2016 MORAIMA NOEL DO Ot 719.46 JOINT PAIN-L/LEG 04/12/2016 MORAIMA NOEL DO Ot 724.2 LUMBAGO 04/12/2016 BERT HDEZ MORAIMA Moeller Ot 959.7 LOWER LEG INJURY NOS 04/12/2016 BERT HDEZ MORAIMA Moeller Ot E000.8 OTHER EXTERNAL CAUSE STATUS 04/12/2016 BERT HDEZ MORAIMA Moeller Ot E849.0 ACCIDENT IN HOME 04/12/2016 BRET HDEZ MORAIMA Moeller Ot E888.9 FALL NOS 04/12/2016 BERT HDEZ MORAIMA Moeller Ot 789.01 ABDOMINAL PAIN, RIGHT UPPER QUADRANT 04/12/2016 BERT HDEZMORAIMA Ot 575.8 DIS OF GALLBLADDER NEC 04/12/2016 RUFINA ESCOTO, NARAYAN Marr Ot 575.8 DIS OF GALLBLADDER NEC 04/12/2016 RUFINA ESCOTO, NARAYAN Marr Ot V72.63 PRE-PROCEDURAL LABORATORY EXAMINATION 04/12/2016 RUFINA ESCOTO, NARAYAN Marr Ot V72.81 [id number] CARDIOVASCULAR 04/12/2016 RUFINA ESCOTO, NARAYAN Marr Ot V74.8 SCREEN-BACTERIAL DIS NEC 04/12/2016 NESS ESCOTO, SOSA Shelby Ot 715.31 LOC OSTEOARTH NOS-SHLDER 04/12/2016 NESS ESCOTO, SOSA Shelby Ot 727.61 ROTATOR CUFF RUPTURE 04/12/2016 NESS ESCOTO, SOSA Shelby Ot 840.7 (SLAP) SUPERIOR GLENOID LABRUM LESIONS 04/12/2016 SOSA GUSMAN MD Ot V72.83 EXAM PRE-OPERATIVE NEC 04/12/2016 Ot G56.02 CAR PAL TUNNEL SYNDROME, LEFT UPPER LIMB 04/12/2016 Ot Z01.818 EN COUNTER FOR OTHER PREPROCEDURAL EXAMIN 04/12/2016 Ot Z11.2 ENCO UNTER FOR SCREENING FOR OTHER BACTER 04/12/2016 RASHEED RAHMAN Ot Z12.31 ENCNTR SCREEN MAMMOGRAM FOR MALIGNANT NE 04/12/2016 BERT HDEZMORAIMA Ot Z13.89 ENCOUNTER FOR SCREENING FOR OTHER DISORD 04/12/2016 NESS ESCOTO, SOSA Shelby Ot G56.01 CARPAL TUNNEL SYNDROME, RIGHT UPPER LIMB 04/12/2016 SOSA GUSMAN MD Ot Z01.818 ENCOUNTER FOR OTHER PREPROCEDURAL EXAMIN 04/12/2016 MAXIMUSEPIFANIO MORAIMA HDEZ Ot J40 BRONCHITIS, NOT SPECIFIED ACUTE OR CH 04/12/2016 MORAIMA NOEL DO Ot J44.9 CHRONIC OBSTRUCTIVE PULMONARY DISEASE, U 04/12/2016 MORAIMA NOEL DO Ot N39.0 URINARY TRACT INFECTION, SITE NOT SPECIF 04/12/2016 PRIMO DINO Radu FIELDS Ot R22. 31 LOCALIZED SWELLING, MASS AND LUMP, RIGHT 04/12/2016 RASHEED RAHMAN Ot Z12.31 ENCNTR SCREEN MAMMOGRAM FOR MALIGNANT NE 04/13/2016 RASHEED RAHMAN Ot Z12.31 ENCNTR SCREEN MAMMOGRAM FOR MALIGNANT NE 04/13/2016 LAURA ROBLERO MD Ot E78.00 PURE HYPERCHOLESTEROLEMIA, UNSPECIFIED 04/13/2016 LAURA ROBLERO MD Ot E86 .0 DEHYDRATION 04/13/2016 LAURA ROBLERO MD Ot F17.210 NICOTINE DEPENDENCE, CIGARETTES, UNCOMPL 04/13/2016 LAURA ROBLERO MD Ot F41 .9 ANXIETY DISORDER, UNSPECIFIED 04/13/2016 LAURA ROBLERO MD Ot I10 ESSENTIAL (PRIMARY) HYPERTENSION 04/13/2016 LAURA ROBLERO MD Ot I95 .9 HYPOTENSION, UNSPECIFIED 04/13/2016 LAURA ROBLERO MD, Ot J44 .9 CHRONIC OBSTRUCTIVE PULMONARY DISEASE, U 04/13/2016 LAURA ROBLERO MD Ot J45.909 UNSPECIFIED ASTHMA, UNCOMPLICATED 04/13/2016 LAURA ROBLERO MD, Ot K21 .9 GASTRO-ESOPHAGEAL REFLUX DISEASE WITHOUT 04/13/2016 LAURA ROBLERO MD, Ot L40 .9 PSORIASIS, UNSPECIFIED 04/13/2016 LAURA ROBLERO MD Ot M19.90 UNSPECIFIED OSTEOARTHRITIS, UNSPECIFIED 04/13/2016 LAURA ROBLERO MD, Ot M54 .9 DORSALGIA, UNSPECIFIED 04/13/2016 LAURA ROBLERO MD Ot N17 .9 ACUTE KIDNEY FAILURE, UNSPECIFIED 04/13/2016 LAURA ROBLERO MD, Ot N31 .9 NEUROMUSCULAR DYSFUNCTION OF BLADDER, UN 04/13/2016 LAURA ROBLERO MD Ot Z96.651 PRESENCE OF RIGHT ARTIFICIAL KNEE JOINT 06/01/2016 RASHEED RAHMAN Ot Z12.31 ENCNTR SCREEN MAMMOGRAM FOR MALIGNANT NE 07/13/2016 YAMILET SEGAL MD Ot E87.6 HYPOKALEMIA 07/13/2016 YAMILET SEGAL MD Ot 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, UNCOMPLICATED 07/13/2016 YAMILET SEGAL MD Ot F17.2 10 NICOTINE DEPENDENCE, CIGARETTES, UNCOMPL 07/13/2016 YAMILET SEGAL MD Ot F41.9 ANXIETY DISORDER, UNSPECIFIED 07/13/2016 YAMILET SEGAL MD Ot I10 ESSENTIAL (PRIMARY) HYPERTENSION 07/13/2016 YAMILET SEGAL MD Ot J44.9 CHRONIC OBSTRUCTIVE PULMONARY DISEASE, U 07/13/2016 YAMILET SEGAL MD Ot J45.9 09 UNSPECIFIED ASTHMA, UNCOMPLICATED 07/13/2016 YAMILET SEGAL MD Ot K21.9 GASTRO-ESOPHAGEAL REFLUX DISEASE WITHOUT 07/13/2016 YAMILET SEGAL MD Ot L08.9 LOCAL INFECTION OF THE SKIN AND SUBCUTAN 07/13/2016 YAMILET SEGAL MD Ot M19.9 1 PRIMARY OSTEOARTHRITIS, UNSPECIFIED SITE 07/13/2016 YAMILET SEGAL MD Ot M54.2 CERVICALGIA 07/13/2016 YAMILET SEGAL MD Ot M54.9 DORSALGIA, UNSPECIFIED 07/13/2016 YAMILET SEGAL MD Ot N31.9 NEUROMUSCULAR DYSFUNCTION OF BLADDER, UN 07/13/2016 YAMILET SEGAL MD Ot R51 HEADACHE 07/13/2016 YAMILET SEGAL MD Ot Z91.8 1 HISTORY OF FALLING 07/13/2016 YAMILET SEGAL MD Ot E87.6 HYPOKALEMIA 07/13/2016 YAMILET SEGAL MD Ot 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, UNCOMPLICATED 07/13/2016 YAMILET SEGAL MD Ot F17.2 10 NICOTINE DEPENDENCE, CIGARETTES, UNCOMPL 07/13/2016 YAMILET SEGAL MD Ot F41.9 ANXIETY DISORDER, UNSPECIFIED 07/13/2016 YAMILET SEGAL MD Ot I10 ESSENTIAL (PRIMARY) HYPERTENSION 07/13/2016 YAMILET SEGAL MD Ot J44.9 CHRONIC OBSTRUCTIVE PULMONARY DISEASE, U 07/13/2016 YAMILET SEGAL MD Ot J45.9 09 UNSPECIFIED ASTHMA, UNCOMPLICATED 07/13/2016 YAMILET SEGAL MD Ot K21.9 GASTRO-ESOPHAGEAL REFLUX DISEASE WITHOUT 07/13/2016 YAMILET SEGAL MD Ot L08.9 LOCAL INFECTION OF THE SKIN AND SUBCUTAN 07/13/2016 YAMILET SEGAL MD Ot M19.9 1 PRIMARY OSTEOARTHRITIS, UNSPECIFIED SITE 07/13/2016 YAMILET SEGAL MD Ot M54.2 CERVICALGIA 07/13/2016 YAMILET SEGAL MD Ot M54.9 DORSALGIA, UNSPECIFIED 07/13/2016 YAMILET SEGAL MD Ot N31.9 NEUROMUSCULAR DYSFUNCTION OF BLADDER, UN 07/13/2016 YAMILET SEGAL MD Ot R51 HEADACHE 07/13/2016 YAMILET SEGAL MD Ot Z91.8 1 HISTORY OF FALLING 07/13/2016 YAMILET SEGAL MD Ot E87.6 HYPOKALEMIA 07/13/2016 YAMILET SEGAL MD Ot 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, UNCOMPLICATED 07/13/2016 YAMILET SEGAL MD Ot F17.2 10 NICOTINE DEPENDENCE, CIGARETTES, UNCOMPL 07/13/2016 YAMILET SEGAL MD Ot F41.9 ANXIETY DISORDER, UNSPECIFIED 07/13/2016 YAMILET SEGAL MD Ot I10 ESSENTIAL (PRIMARY) HYPERTENSION 07/13/2016 YAMILET SEGAL MD Ot J44.9 CHRONIC OBSTRUCTIVE PULMONARY DISEASE, U 07/13/2016 YAMILET SEAGL MD Ot J45.9 09 UNSPECIFIED ASTHMA, UNCOMPLICATED 07/13/2016 YAMILET SEGAL MD Ot K21.9 GASTRO-ESOPHAGEAL REFLUX DISEASE WITHOUT 07/13/2016 YAMILET SEGAL MD Ot L08.9 LOCAL INFECTION OF THE SKIN AND SUBCUTAN 07/13/2016 YAMILET SEGAL MD Ot M19.9 1 PRIMARY OSTEOARTHRITIS, UNSPECIFIED SITE 07/13/2016 YAMILET SEGAL MD Ot M54.2 CERVICALGIA 07/13/2016 YAMILET SEGAL MD Ot M54.9 DORSALGIA, UNSPECIFIED 07/13/2016 YAMILET SEGAL MD Ot N31.9 NEUROMUSCULAR DYSFUNCTION OF BLADDER, UN 07/13/2016 YAMILET SEGAL MD Ot R51 HEADACHE 07/13/2016 YAMILET SEGAL MD Ot Z91.8 1 HISTORY OF FALLING 07/13/2016 YAMILET SEGAL MD Ot E87.6 HYPOKALEMIA 07/13/2016 YAMILET SEGAL MD Ot 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, UNCOMPLICATED 07/13/2016 YAMILET SEGAL MD Ot F17.2 10 NICOTINE DEPENDENCE, CIGARETTES, UNCOMPL 07/13/2016 YAMILET SEGAL MD Ot F41.9 ANXIETY DISORDER, UNSPECIFIED 07/13/2016 YAMILET SEGAL MD Ot I10 ESSENTIAL (PRIMARY) HYPERTENSION 07/13/2016 YAMILET SEGAL MD Ot J44.9 CHRONIC OBSTRUCTIVE PULMONARY DISEASE, U 07/13/2016 YAMILET SEGAL MD Ot J45.9 09 UNSPECIFIED ASTHMA, UNCOMPLICATED 07/13/2016 YAMILET SEGAL MD Ot K21.9 GASTRO-ESOPHAGEAL REFLUX DISEASE WITHOUT 07/13/2016 YAMILET SEGAL MD Ot L08.9 LOCAL INFECTION OF THE SKIN AND SUBCUTAN 07/13/2016 YAMILET SEGAL MD Ot M19.9 1 PRIMARY OSTEOARTHRITIS, UNSPECIFIED SITE 07/13/2016 YAMILET SEGAL MD Ot M54.2 CERVICALGIA 07/13/2016 YAMILET SEGAL MD Ot M54.9 DORSALGIA, UNSPECIFIED 07/13/2016 YAMILET SEGAL MD Ot N31.9 NEUROMUSCULAR DYSFUNCTION OF BLADDER, UN 07/13/2016 YAMILET SEGAL MD Ot R51 HEADACHE 07/13/2016 YAMILET SEGAL MD Ot Z91.8 1 HISTORY OF FALLING 07/14/2016 YAMILET SEGAL MD Ot E87.6 HYPOKALEMIA 07/14/2016 YAMILET SEGAL MD Ot 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, UNCOMPLICATED 07/14/2016 YAMILET SEGAL MD Ot F17.2 10 NICOTINE DEPENDENCE, CIGARETTES, UNCOMPL 07/14/2016 YAMILET SEGAL MD Ot F41.9 ANXIETY DISORDER, UNSPECIFIED 07/14/2016 YAMILET SEGAL MD Ot I10 ESSENTIAL (PRIMARY) HYPERTENSION 07/14/2016 YAMILET SEGAL MD Ot J44.9 CHRONIC OBSTRUCTIVE PULMONARY DISEASE, U 07/14/2016 YAMILET SEGAL MD Ot J45.9 09 UNSPECIFIED ASTHMA, UNCOMPLICATED 07/14/2016 YAMILET SEGAL MD Ot K21.9 GASTRO-ESOPHAGEAL REFLUX DISEASE WITHOUT 07/14/2016 GAULT MD, YAMILET R Ot L08.9 LOCAL INFECTION OF THE SKIN AND SUBCUTAN 07/14/2016 YAMILET SEGAL MD Ot M19.9 1 PRIMARY OSTEOARTHRITIS, UNSPECIFIED SITE 07/14/2016 YAMILET SEGAL MD Ot M54.2 CERVICALGIA 07/14/2016 YAMILET SEGAL MD, Ot M54.9 DORSALGIA, UNSPECIFIED 07/14/2016 YAMILET SEGAL MD Ot N31.9 NEUROMUSCULAR DYSFUNCTION OF BLADDER, UN 07/14/2016 YAMILET SEGAL MD Ot R51 HEADACHE 07/14/2016 YAMILET SEGAL MD Ot Z91.8 1 HISTORY OF FALLING 07/14/2016 YAMILET SEGAL MD Ot E87.6 HYPOKALEMIA 07/14/2016 YAMILET SEGAL MD Ot 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, UNCOMPLICATED 07/14/2016 YAMILET SEGAL MD Ot F17.2 10 NICOTINE DEPENDENCE, CIGARETTES, UNCOMPL 07/14/2016 YAMILET SEGAL MD Ot F41.9 ANXIETY DISORDER, UNSPECIFIED 07/14/2016 YAMILET SEGAL MD Ot I10 ESSENTIAL (PRIMARY) HYPERTENSION 07/14/2016 YAMILET SEGAL MD Ot J44.9 CHRONIC OBSTRUCTIVE PULMONARY DISEASE, U 07/14/2016 YAMILET SEGAL MD Ot J45.9 09 UNSPECIFIED ASTHMA, UNCOMPLICATED 07/14/2016 YAMILET SEGAL MD Ot K21.9 GASTRO-ESOPHAGEAL REFLUX DISEASE WITHOUT 07/14/2016 YAMILET SEGAL MD Ot L08.9 LOCAL INFECTION OF THE SKIN AND SUBCUTAN 07/14/2016 YAMILET SEGAL MD Ot M19.9 1 PRIMARY OSTEOARTHRITIS, UNSPECIFIED SITE 07/14/2016 YAMILET SEGAL MD Ot M54.2 CERVICALGIA 07/14/2016 YAMILET SEGAL MD Ot M54.9 DORSALGIA, UNSPECIFIED 07/14/2016 YAMILET SEGAL MD Ot N31.9 NEUROMUSCULAR DYSFUNCTION OF BLADDER, UN 07/14/2016 YAMILET SEGAL MD Ot R51 HEADACHE 07/14/2016 YAMILET SEGAL MD Ot Z91.8 1 HISTORY OF FALLING 07/14/2016 YAMILET SEGAL MD Ot E87.6 HYPOKALEMIA 07/14/2016 GAULT MD, YAMILET R Ot 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, UNCOMPLICATED 07/14/2016 YAMILET SEGAL MD Ot F17.2 10 NICOTINE DEPENDENCE, CIGARETTES, UNCOMPL 07/14/2016 YAMILET SEGAL MD Ot F41.9 ANXIETY DISORDER, UNSPECIFIED 07/14/2016 YAMILET SEGAL MD Ot I10 ESSENTIAL (PRIMARY) HYPERTENSION 07/14/2016 YAMILET SEGAL MD Ot J44.9 CHRONIC OBSTRUCTIVE PULMONARY DISEASE, U 07/14/2016 YAMILET SEGAL MD Ot J45.9 09 UNSPECIFIED ASTHMA, UNCOMPLICATED 07/14/2016 YAMILET SEGAL MD Ot K21.9 GASTRO-ESOPHAGEAL REFLUX DISEASE WITHOUT 07/14/2016 YAMILET SEGAL MD Ot L08.9 LOCAL INFECTION OF THE SKIN AND SUBCUTAN 07/14/2016 YAMILET SEGAL MD Ot M19.9 1 PRIMARY OSTEOARTHRITIS, UNSPECIFIED SITE 07/14/2016 YAMILET SEGAL MD Ot M54.2 CERVICALGIA 07/14/2016 YAMILET SEGAL MD Ot M54.9 DORSALGIA, UNSPECIFIED 07/14/2016 YAMILET SEGAL MD Ot N31.9 NEUROMUSCULAR DYSFUNCTION OF BLADDER, UN 07/14/2016 YAMILET SEGAL MD Ot R51 HEADACHE 07/14/2016 YAMILET SEGAL MD Ot Z91.8 1 HISTORY OF FALLING 07/15/2016 YAMILET SEGAL MD Ot E87.6 HYPOKALEMIA 07/15/2016 YAMILET SEGAL MD Ot 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, UNCOMPLICATED 07/15/2016 YAMILET SEGAL MD Ot F17.2 10 NICOTINE DEPENDENCE, CIGARETTES, UNCOMPL 07/15/2016 YAMILET SEGAL MD Ot F41.9 ANXIETY DISORDER, UNSPECIFIED 07/15/2016 YAMILET SEGAL MD Ot I10 ESSENTIAL (PRIMARY) HYPERTENSION 07/15/2016 YAMILET SEGAL MD Ot J44.9 CHRONIC OBSTRUCTIVE PULMONARY DISEASE, U 07/15/2016 YAMILET SEGAL MD Ot J45.9 09 UNSPECIFIED ASTHMA, UNCOMPLICATED 07/15/2016 YAMILET SEGAL MD Ot K21.9 GASTRO-ESOPHAGEAL REFLUX DISEASE WITHOUT 07/15/2016 YAMILET SEGAL MD R Ot L08.9 LOCAL INFECTION OF THE SKIN AND SUBCUTAN 07/15/2016 YAMILET SEGAL MD Ot M19.9 1 PRIMARY OSTEOARTHRITIS, UNSPECIFIED SITE 07/15/2016 YAMILET SEGAL MD, Ot M54.2 CERVICALGIA 07/15/2016 YAMILET SEGAL MD, Ot M54.9 DORSALGIA, UNSPECIFIED 07/15/2016 YAMILET SEGAL MD Ot N31.9 NEUROMUSCULAR DYSFUNCTION OF BLADDER, UN 07/15/2016 YAMILET SEGAL MD Ot R51 HEADACHE 07/15/2016 YAMILET SEGAL MD Ot Z91.8 1 HISTORY OF FALLING 07/15/2016 YAMILET SEGAL MD Ot E87.6 HYPOKALEMIA 07/15/2016 YAMILET SEGAL MD, Ot 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, UNCOMPLICATED 07/15/2016 YAMILET SEGAL MD Ot F17.2 10 NICOTINE DEPENDENCE, CIGARETTES, UNCOMPL 07/15/2016 YAMILET SEGAL MD Ot F32.9 MAJOR DEPRESSIVE DISORDER, SINGLE EPISOD 07/15/2016 YAMILET SEGAL MD Ot F41.9 ANXIETY DISORDER, UNSPECIFIED 07/15/2016 YAMILET SEGAL MD Ot I10 ESSENTIAL (PRIMARY) HYPERTENSION 07/15/2016 YAMILET SEGAL MD Ot J44.9 CHRONIC OBSTRUCTIVE PULMONARY DISEASE, U 07/15/2016 YAMILET SEGAL MD Ot J45.9 09 UNSPECIFIED ASTHMA, UNCOMPLICATED 07/15/2016 YAMILET SEGAL MD, Ot K21.9 GASTRO-ESOPHAGEAL REFLUX DISEASE WITHOUT 07/15/2016 YAMILET SEGAL MD Ot L03.1 16 CELLULITIS OF LEFT LOWER LIMB 07/15/2016 YAMILET SEGAL MD Ot L08.9 LOCAL INFECTION OF THE SKIN AND SUBCUTAN 07/15/2016 YAMILET SEGAL MD Ot L97.1 29 NON-PRESSURE CHRONIC ULCER OF LEFT THIGH 07/15/2016 YAMILET SEGAL MD Ot M19.9 1 PRIMARY OSTEOARTHRITIS, UNSPECIFIED SITE 07/15/2016 YAMILET SEGAL MD Ot M54.2 CERVICALGIA 07/15/2016 YAMILET SEGAL MD Ot M54.9 DORSALGIA, UNSPECIFIED 07/15/2016 YAMILET SEGAL MD, Ot N31.9 NEUROMUSCULAR DYSFUNCTION OF BLADDER, UN 07/15/2016 LUZMA ESCOTO YAMILET Guevara Ot N61.0 MASTITIS WITHOUT ABSCESS 07/15/2016 LUZMA ESCOTO, YAMILET R Ot R51 HEADACHE 07/15/2016 LUZMA ESCOTO, YAMILET Guevara Ot T43.621A POISONING BY AMPHETAMINES, ACCIDENTAL (U 07/15/2016 LUZMA ESCOTO, YAMILET Guevara Ot Z91.8 1 HISTORY OF FALLING 07/29/2016 Ot 715.36 LOC OSTEOARTH NOS-L/LEG 07/29/2016 Ot 791.9 ABN URINE FINDINGS NEC 07/29/2016 Ot V57.1 PHYS ICAL THERAPY NEC 07/29/2016 Ot V57.21 ENC OUNTER FOR OCCUPATIONAL THERAPY 07/29/2016 Ot V72.63 PRE -PROCEDURAL LABORATORY EXAMINATION 07/29/2016 Ot V74.8 SCRE EN-BACTERIAL DIS NEC 07/29/2016 RASHEED RAHMAN Ot V76.12 [...] CUFF RUPTURE 07/29/2016 RYAN JONES MD Ot 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 07/29/2016 RYAN JONES MD Ot 788.3 0 UNSPECIFIED URINARY INCONTINENCE 07/29/2016 RYAN JONES MD Ot V72.8 4 EXAM PRE-OPERATIVE NOS 07/29/2016 RYAN JONES MD Ot V74.8 SCREEN-BACTERIAL DIS NEC 07/29/2016 MORAIMA NOEL DO Ot 719.46 JOINT PAIN-L/LEG 07/29/2016 MORAIMA NOEL DO Ot 724.2 LUMBAGO 07/29/2016 MORAIMA NOEL DO Ot 959.7 LOWER LEG INJURY NOS 07/29/2016 MORAIMA NOEL DO Sunni Ot E000.8 OTHER EXTERNAL CAUSE STATUS 07/29/2016 BERT HDEZ MORAIMA Moeller Ot E849.0 ACCIDENT IN HOME 07/29/2016 BERT HDEZMORAIMA Ot E888.9 FALL NOS 07/29/2016 BERT HDEZMORAIMA Ot 789.01 ABDOMINAL PAIN, RIGHT UPPER QUADRANT 07/29/2016 TRAVISYOUSUFEPIFANIO MORAIMA HDEZ Ot 575.8 DIS OF GALLBLADDER NEC 07/29/2016 RUFINA ESCOTO, NARAYAN Marr Ot 575.8 DIS OF GALLBLADDER NEC 07/29/2016 RUFINA ESCOTO, NARAYAN Marr Ot V72.63 PRE-PROCEDURAL LABORATORY EXAMINATION 07/29/2016 RUFINA ESCOTO, NARAYAN Marr Ot V72.81 [id number] CARDIOVASCULAR 07/29/2016 RUFINA ESCOTO, NARAYAN Marr Ot V74.8 SCREEN-BACTERIAL DIS NEC 07/29/2016 NESS ESCOTO, SOSA Shelby Ot 715.31 LOC OSTEOARTH NOS-SHLDER 07/29/2016 NESS ESCOTO, SOSA Shelby Ot 727.61 ROTATOR CUFF RUPTURE 07/29/2016 NESS ESCOTO, SOSA Shelby Ot 840.7 (SLAP) SUPERIOR GLENOID LABRUM LESIONS 07/29/2016 SOSA GUSMAN MD Ot V72.83 EXAM PRE-OPERATIVE NEC 07/29/2016 Ot G56.02 CAR PAL TUNNEL SYNDROME, LEFT UPPER LIMB 07/29/2016 Ot Z01.818 EN COUNTER FOR OTHER PREPROCEDURAL EXAMIN 07/29/2016 Ot Z11.2 ENCO UNTER FOR SCREENING FOR OTHER BACTER 07/29/2016 RASHEED RAHMAN Ot Z12.31 ENCNTR SCREEN MAMMOGRAM FOR MALIGNANT NE 07/29/2016 BERT HDEZMORAIMA Ot Z13.89 ENCOUNTER FOR SCREENING FOR OTHER DISORD 07/29/2016 SOSA GUSMAN MD Ot G56.01 CARPAL TUNNEL SYNDROME, RIGHT UPPER LIMB 07/29/2016 SOSA GUSMAN MD Ot Z01.818 ENCOUNTER FOR OTHER PREPROCEDURAL EXAMIN 07/29/2016 BERT HDEZMORAIMA Ot J40 BRONCHITIS, NOT SPECIFIED ACUTE OR CH 07/29/2016 TRAVISYOUSUFEPIFANIO MORAIMA HDEZ Ot J44.9 CHRONIC OBSTRUCTIVE PULMONARY DISEASE, U 07/29/2016 BERT HDEZ MORAIMA Sunni Ot N39.0 URINARY TRACT INFECTION, SITE NOT SPECIF 07/29/2016 DINO TILLMAN Radu FIELDS Ot R22. 31 LOCALIZED SWELLING, MASS AND LUMP, RIGHT 07/29/2016 [...] ABN URINE FINDINGS NEC 10/25/2016 Ot V57.1 PHYS ICAL THERAPY NEC 10/25/2016 Ot V57.21 ENC OUNTER FOR OCCUPATIONAL THERAPY 10/25/2016 Ot V72.63 PRE -PROCEDURAL LABORATORY EXAMINATION 10/25/2016 Ot V74.8 SCRE EN-BACTERIAL DIS NEC 10/25/2016 RASHEED RAHMAN Ot V76.12 OTH SCREEN MAMMO-MALIGN NEOPLASM OF SAMANTHA 10/25/2016 RASHEED RAHMAN Ot V76.12 OTH SCREEN MAMMO-MALIGN NEOPLASM OF SAMANTHA 10/25/2016 SAMEERA ESCOTO, ADANAAJENNA Ot V72.84 EXAM PRE-OPERATIVE NOS 10/25/2016 NESS ESCOTO, SOSA Shelby Ot 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 PATELLAE 10/25/2016 NESS ESCOTO, SOSA Shelby Ot V72.84 EXAM PRE-OPERATIVE NOS 10/25/2016 NESS ESCOTO, SOSA Shelby Ot V74.8 SCREEN-BACTERIAL DIS NEC 10/25/2016 NESS ESCOTO, SOSA Shelby Ot 727.61 ROTATOR CUFF RUPTURE 10/25/2016 KAREN ESCOTO, RYAN Moeller Ot 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 10/25/2016 RYAN JONES MD Ot 788.3 0 UNSPECIFIED URINARY INCONTINENCE 10/25/2016 RYAN JONES MD Ot V72.8 4 EXAM PRE-OPERATIVE NOS 10/25/2016 RYAN JONES MD Ot V74.8 SCREEN-BACTERIAL DIS NEC 10/25/2016 MORAIMA NOEL DO Ot 719.46 JOINT PAIN-L/LEG 10/25/2016 MORAIMA NOEL DO Ot 724.2 LUMBAGO 10/25/2016 MAXIMUSEPIFANIO DOMORAIMA Ot 959.7 LOWER LEG INJURY NOS 10/25/2016 MAXIMUSEPIFANIO MORAIMA HDEZ Ot E000.8 OTHER EXTERNAL CAUSE STATUS 10/25/2016 BERT DO MORAIMA Sunni Ot E849.0 ACCIDENT IN HOME 10/25/2016 BERT MORAIMA HDEZ Ot E888.9 FALL NOS 10/25/2016 MAXIMUSEPIFANIO MORAIMA HDEZ Ot 789.01 ABDOMINAL PAIN, RIGHT UPPER QUADRANT 10/25/2016 MORAIMA NOEL DO Ot 575.8 DIS OF GALLBLADDER NEC 10/25/2016 RUFINA ESCOTO, NARAYAN Marr Ot 575.8 DIS OF GALLBLADDER NEC 10/25/2016 RUFINA ESCOTO, NARAYAN Marr Ot V72.63 PRE-PROCEDURAL LABORATORY EXAMINATION 10/25/2016 RUFINA ESCOTO, NARAYAN Marr Ot V72.81 ROAS-BNG-NLSPQNAIC CARDIOVASCULAR 10/25/2016 RUFINA ESCOTO, NARAYAN Marr Ot V74.8 SCREEN-BACTERIAL DIS NEC 10/25/2016 NESS ESCOTO, SOSA Shelby Ot 715.31 LOC OSTEOARTH NOS-SHLDER 10/25/2016 SOSA GUSMAN MD Ot 727.61 ROTATOR CUFF RUPTURE 10/25/2016 SOSA GUSMAN MD Ot 840.7 (SLAP) SUPERIOR GLENOID LABRUM LESIONS 10/25/2016 SOSA GUSMAN MD Ot V72.83 EXAM PRE-OPERATIVE NEC 10/25/2016 Ot G56.02 CAR PAL TUNNEL SYNDROME, LEFT UPPER LIMB 10/25/2016 Ot Z01.818 EN COUNTER FOR OTHER PREPROCEDURAL EXAMIN 10/25/2016 Ot Z11.2 ENCO UNTER FOR SCREENING FOR OTHER BACTER 10/25/2016 RASHEED [...] SITE NOT SPECIF 10/25/2016 DINO TILLMAN Ot R22. 31 LOCALIZED SWELLING, MASS AND LUMP, RIGHT 10/25/2016 RASHEED RAHMAN Ot Z12.31 ENCNTR SCREEN MAMMOGRAM FOR MALIGNANT NE 10/25/2016 SOSA GUSMAN MD Ot M75.121 COMPLETE ROTATR-CUFF TEAR/RUPTR OF R JOSSY 10/31/2016 MEDARDO DUFFY MD Ot Z51. 81 ENCOUNTER FOR THERAPEUTIC DRUG LEVEL MON 10/31/2016 MEDARDO DUFFY MD Ot Z79.899 OTHER BLENDER CONVEYOR OPERATOR (CURRENT) DRUG THERAPY 11/17/2016 MEDARDO DUFFY MD Ot Z51. 81 ENCOUNTER FOR THERAPEUTIC DRUG LEVEL MON 11/17/2016 MEDARDO DUFFY MD Ot Z79.899 OTHER BLENDER CONVEYOR OPERATOR (CURRENT) DRUG THERAPY 11/21/2016 MEDARDO DUFFY MD Ot Z51. 81 ENCOUNTER FOR THERAPEUTIC DRUG LEVEL MON 11/21/2016 MEDARDO DUFFY MD, Ot Z79.899 OTHER BLENDER CONVEYOR OPERATOR (CURRENT) DRUG THERAPY 05/01/2017 RASHEED RAHMANP Ot V76.12 OTH SCREEN MAMMO-MALIGN NEOPLASM OF SAMANTHA 05/01/2017 RASHEED RAHMAN DIAMOND Ot V76.12 OTH SCREEN MAMMO-MALIGN NEOPLASM OF SAMANTHA 05/01/2017 SAMEERA ESCOTO, JAMIE Ot V72.84 EXAM PRE-OPERATIVE NOS 05/01/2017 NESS ESCOTO, SOSA Shelby Ot 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 PATELLAE 05/01/2017 SOSA GUSMAN MD Ot V72.84 EXAM PRE-OPERATIVE NOS 05/01/2017 NESS ESCOTO, SOSA Shelby Ot V74.8 SCREEN-BACTERIAL DIS NEC 05/01/2017 SOSA GUSMAN MD Ot 727.61 ROTATOR CUFF RUPTURE 05/01/2017 KAREN ESCOTO, RYAN Moeller Ot 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 05/01/2017 RYAN JONES MD Ot 788.3 0 UNSPECIFIED URINARY INCONTINENCE 05/01/2017 RYAN JONES MD Ot V72.8 4 EXAM PRE-OPERATIVE NOS 05/01/2017 KAREN ESCOTO, RYAN [...] 05/01/2017 RUFINA ESCOTO, NARAYAN Marr Ot V72.81 BFJI-ESN-XHCNGDOAR CARDIOVASCULAR 05/01/2017 RUFINA ESCOTO, NARAYAN Marr Ot V74.8 SCREEN-BACTERIAL DIS NEC 05/01/2017 SOSA GUSMAN MD Ot 715.31 LOC OSTEOARTH NOS-SHLDER 05/01/2017 SOSA GUSMAN MD Ot 727.61 ROTATOR CUFF RUPTURE 05/01/2017 SOSA GUSMAN MD Ot 840.7 (SLAP) SUPERIOR GLENOID LABRUM LESIONS 05/01/2017 SOSA GUSMAN MD Ot V72.83 EXAM PRE-OPERATIVE NEC 05/01/2017 Ot G56.02 CAR PAL TUNNEL SYNDROME, LEFT UPPER LIMB 05/01/2017 Ot Z01.818 EN COUNTER FOR OTHER PREPROCEDURAL EXAMIN 05/01/2017 Ot Z11.2 ENCO UNTER FOR SCREENING FOR OTHER BACTER 05/01/2017 RASHEED RAHMAN Ot Z12.31 ENCNTR SCREEN MAMMOGRAM FOR MALIGNANT NE 05/01/2017 MOARIMA NOEL DO Ot Z13.89 ENCOUNTER FOR SCREENING [...] SITE NOT SPECIF 05/01/2017 DINO TILLMAN Ot R22. 31 LOCALIZED SWELLING, MASS AND LUMP, RIGHT 05/01/2017 RASHEED RAHMAN Ot Z12.31 ENCNTR SCREEN MAMMOGRAM FOR MALIGNANT NE 05/01/2017 SOSA GUSMAN MD Ot M75.121 COMPLETE ROTATR-CUFF TEAR/RUPTR OF R JOSSY 05/01/2017 MEDARDO DUFFY MD Ot Z51. 81 ENCOUNTER FOR THERAPEUTIC DRUG LEVEL MON 05/01/2017 MEDARDO DUFFY MD Ot Z79.899 OTHER BLENDER CONVEYOR OPERATOR (CURRENT) DRUG THERAPY 05/01/2017 MEDARDO DUFFY MD Ot Z12. 31 ENCNTR SCREEN MAMMOGRAM FOR MALIGNANT NE 05/02/2017 PAMELA ESCOTO, JEN Zhong Ot M25.81 1 OTHER SPECIFIED JOINT DISORDERS, RIGHT S 05/11/2017 [...] Ot Z72.0 TOBACCO USE 05/21/2017 RASHEED RAHMAN ASSOCIATE OF SCIENCE IN NURSING Ot V76.12 OTH SCREEN MAMMO-MALIGN NEOPLASM OF SAMANTHA 05/21/2017 RASHEED RAHMAN ASSOCIATE OF SCIENCE IN NURSING Ot V76.12 OTH SCREEN MAMMO-MALIGN NEOPLASM OF SAMANTHA 05/21/2017 JAMIE LOVE MD Ot V72.84 EXAM PRE-OPERATIVE NOS 05/21/2017 SOSA GUSMAN MD Ot 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 PATELLAE 05/21/2017 SOSA GUSMAN MD Ot V72.84 EXAM PRE-OPERATIVE NOS 05/21/2017 SOSA GUSMAN MD Ot V74.8 SCREEN-BACTERIAL DIS NEC 05/21/2017 SOSA GUSMAN MD Ot 727.61 ROTATOR CUFF RUPTURE 05/21/2017 RYAN JONES MD Ot 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 05/21/2017 RYAN JONES MD Ot 788.3 0 UNSPECIFIED URINARY INCONTINENCE 05/21/2017 RYAN JONES MD Ot V72.8 4 EXAM PRE-OPERATIVE NOS 05/21/2017 RYAN JONES MD [...] 05/21/2017 RUFINA ESCOTO, NARAYAN Marr Ot V72.81 EFZH-XBI-MISOKEKUD CARDIOVASCULAR 05/21/2017 RUFINA ESCOTO, NARAYAN Marr Ot V74.8 SCREEN-BACTERIAL DIS NEC 05/21/2017 SOSA GUSMAN MD Ot 715.31 LOC OSTEOARTH NOS-SHLDER 05/21/2017 SOSA GUSMAN MD Ot 727.61 ROTATOR CUFF RUPTURE 05/21/2017 SOSA GUSMAN MD Ot 840.7 (SLAP) SUPERIOR GLENOID LABRUM LESIONS 05/21/2017 SOSA GUSMAN MD Ot V72.83 EXAM PRE-OPERATIVE NEC 05/21/2017 Ot G56.02 CAR PAL TUNNEL SYNDROME, LEFT UPPER LIMB 05/21/2017 Ot Z01.818 EN COUNTER FOR OTHER PREPROCEDURAL EXAMIN 05/21/2017 Ot Z11.2 ENCO UNTER FOR SCREENING FOR OTHER BACTER 05/21/2017 RASHEED RAHMAN Ot Z12.31 ENCNTR SCREEN MAMMOGRAM FOR MALIGNANT NE 05/21/2017 MORAIMA NOEL DO Sunni Ot Z13.89 ENCOUNTER FOR SCREENING FOR OTHER DISORD 05/21/2017 SOSA GUSMAN MD Ot G56.01 CARPAL TUNNEL SYNDROME, RIGHT UPPER LIMB 05/21/2017 SOSA GUSMAN MD Ot Z01.818 ENCOUNTER FOR OTHER PREPROCEDURAL EXAMIN 05/21/2017 BERT HDEZMORAIMA Ot J40 BRONCHITIS, NOT SPECIFIED ACUTE OR CH 05/21/2017 BERT HDEZMORAIMA Ot J44.9 CHRONIC OBSTRUCTIVE PULMONARY DISEASE, U 05/21/2017 BERT HDEZ MORAIMA Moeller Ot N39.0 URINARY TRACT INFECTION, SITE NOT SPECIF 05/21/2017 DINO TILLMAN DIAMOND Ot R22. 31 LOCALIZED SWELLING, MASS AND LUMP, RIGHT 05/21/2017 RASHEED RAHMAN Ot Z12.31 ENCNTR SCREEN MAMMOGRAM FOR MALIGNANT NE 05/21/2017 NESS ESCOTO, SOSA Shelby Ot M75.121 COMPLETE ROTATR-CUFF TEAR/RUPTR OF R JOSSY 05/21/2017 MEDARDO DUFFY MD Ot Z51. 81 ENCOUNTER FOR THERAPEUTIC DRUG LEVEL MON 05/21/2017 MEDARDO DUFFY MD Ot Z79.899 OTHER BLENDER CONVEYOR OPERATOR (CURRENT) DRUG THERAPY 05/21/2017 MEDARDO DUFFY MD, Ot Z12. 31 ENCNTR SCREEN MAMMOGRAM FOR MALIGNANT NE 05/21/2017 JEN SANTIAGO MD Ot M25.81 1 OTHER SPECIFIED JOINT DISORDERS, RIGHT S 05/21/2017 JOSEE ESCOTO FACC, ALI FACP CCDS Ot E78.4 OTHER HYPERLIPIDEMIA 05/21/2017 JOSEE ESCOTO FACC, ALI FACP CCDS Ot I10 ESSENTIAL (PRIMARY) HYPERTENSION 05/21/2017 JOSEE ESCOTO FACC, ALI FACP CCDS Ot J43.8 OTHER EMPHYSEMA 05/21/2017 JOSEE ESCOTO FACC, ALI FACP CCDS Ot R06.02 SHORTNESS OF BREATH 05/21/2017 JOSEE ESCOTO FACC, ROGER KIMP CCDS Ot Z72.0 TOBACCO USE 05/22/2017 JEN SANTIAGO MD Ot M25.81 1 OTHER SPECIFIED JOINT DISORDERS, RIGHT S 05/29/2017 MEDARDO DUFFY MD, Ot Z12. 31 ENCNTR SCREEN MAMMOGRAM FOR MALIGNANT NE 05/30/2017 JEN SANTIAGO MD Ot M25.81 1 OTHER SPECIFIED JOINT DISORDERS, RIGHT S 05/30/2017 JEN SANTIAGO MD Ot M25.51 2 PAIN IN LEFT SHOULDER 05/30/2017 JEN SANTIAGO MD Ot Z47.89 ENCOUNTER FOR OTHER ORTHOPEDIC AFTERCARE 06/01/2017 JOSEE ESCOTO FACC, ALI FACP CCDS Ot E78.4 OTHER HYPERLIPIDEMIA 06/01/2017 JOSEE ESCOTO FACC, ALI FACP CCDS Ot I10 ESSENTIAL (PRIMARY) HYPERTENSION 06/01/2017 JOSEE ESCOTO FACC, ALI FACP CCDS Ot J43.8 OTHER EMPHYSEMA 06/01/2017 JOSEE MD FACC, ALI FACP CCDS Ot R06.02 SHORTNESS OF BREATH 06/01/2017 JOSEE ESCOTO FACC, ALI FACP CCDS Ot Z72.0 TOBACCO USE 06/05/2017 CLIVE ESCOTO, MEDARDO Chowdhury Ot Z12. 31 ENCNTR SCREEN MAMMOGRAM FOR MALIGNANT NE 06/05/2017 JEN SANTIAGO MD Ot M25.51 2 PAIN IN LEFT SHOULDER 06/05/2017 JEN SANTIAGO [...] CIGARETTES, SELF 07/09/2017 JEN SANTIAGO MD Ot M25.51 2 PAIN IN LEFT SHOULDER 07/09/2017 JEN SANTIAGO MD Ot Z47.89 ENCOUNTER FOR OTHER ORTHOPEDIC AFTERCARE 07/10/2017 JEN SANTIAGO MD Ot M25.51 2 PAIN IN LEFT SHOULDER 07/10/2017 JEN SANTIAGO MD Ot Z47.89 ENCOUNTER FOR OTHER ORTHOPEDIC AFTERCARE 07/11/2017 JEN SANTIAGO MD Ot M25.51 2 PAIN IN LEFT SHOULDER 07/11/2017 JEN SANTIAGO MD Ot Z47.89 ENCOUNTER FOR OTHER ORTHOPEDIC AFTERCARE 07/11/2017 JEN SANTIAGO MD Ot M25.51 2 PAIN IN LEFT SHOULDER 07/11/2017 JEN SANTIAGO [...] OTHER DISEASES OF UR 07/19/2017 GERMAN HENDERSON MD Ot Z88.2 ALLERGY STATUS [...] Ot F41.9 ANXIETY DISORDER, UNSPECIFIED 07/23/2017 GERMAN HNEDERSON MD Ot G47.30 SLEEP APNEA, UNSPECIFIED 07/23/2017 [...] KNEE JOINT 08/02/2017 JEN SANTIAGO MD Ot M25.51 2 PAIN IN LEFT SHOULDER 08/02/2017 JEN SANTIAGO MD Ot Z47.89 ENCOUNTER FOR OTHER ORTHOPEDIC AFTERCARE 08/27/2017 JEN SANTIAGO MD Ot M25.51 2 PAIN IN LEFT SHOULDER 08/27/2017 JEN SANTIAGO MD Ot Z47.89 ENCOUNTER FOR OTHER ORTHOPEDIC AFTERCARE 08/28/2017 JEN SANTIAGO MD Ot M25.51 2 PAIN IN LEFT SHOULDER 08/28/2017 JEN SANTIAGO MD Ot Z47.89 ENCOUNTER FOR OTHER ORTHOPEDIC AFTERCARE 08/28/2017 JEN SANTIAGO MD Ot M25.51 2 PAIN IN LEFT SHOULDER 08/28/2017 JEN SANTIAGO MD Ot Z47.89 ENCOUNTER FOR OTHER ORTHOPEDIC AFTERCARE 09/05/2017 JEN SANTIAGO MD Ot M25.51 2 PAIN IN LEFT SHOULDER 09/05/2017 JEN SANTIAGO MD Ot Z47.89 ENCOUNTER FOR OTHER ORTHOPEDIC AFTERCARE 09/20/2017 JEN SANTIAGO MD Ot M25.51 2 PAIN IN LEFT SHOULDER 09/20/2017 JEN SANTIAGO MD Ot Z47.89 ENCOUNTER FOR OTHER ORTHOPEDIC AFTERCARE 10/08/2017 JEN SANTIAGO MD Ot M25.51 2 PAIN IN LEFT SHOULDER 10/08/2017 JEN SANTIAGO MD Ot M25.61 2 STIFFNESS OF LEFT SHOULDER, NOT ELSEWHER 10/08/2017 JEN SANTIAGO MD Ot Z47.89 ENCOUNTER FOR OTHER ORTHOPEDIC AFTERCARE 10/12/2017 JEN SANTIAGO MD Ot M25.51 2 PAIN IN LEFT SHOULDER 10/12/2017 JEN SANTIAGO MD Ot M25.61 2 STIFFNESS OF LEFT SHOULDER, NOT ELSEWHER 10/12/2017 JEN SANTIAGO MD Ot Z47.89 ENCOUNTER FOR OTHER ORTHOPEDIC AFTERCARE 11/09/2017 JEN SANTIAGO MD Ot M25.51 2 PAIN IN LEFT SHOULDER 11/09/2017 JEN SANTIAGO MD Ot M25.61 2 STIFFNESS OF LEFT SHOULDER, NOT ELSEWHER 11/09/2017 [...] CUFF RUPTURE 02/26/2018 RYAN JONES MD Ot 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 02/26/2018 RYAN JONES MD Ot 788.3 0 UNSPECIFIED URINARY INCONTINENCE 02/26/2018 RYAN JONES MD Ot V72.8 4 EXAM PRE-OPERATIVE NOS 02/26/2018 RYAN JONES MD Ot V74.8 SCREEN-BACTERIAL DIS NEC 02/26/2018 GELLENDER DO, MORAIMA Moeller Ot 719.46 JOINT PAIN-L/LEG 02/26/2018 TRAVISLENDER DO, MORAIMA Moeller Ot 724.2 LUMBAGO 02/26/2018 MAXIMUSDER DO, MORAIMA Moeller Ot 959.7 LOWER LEG [...] 02/26/2018 RUFINA ESCOTO, NARAYAN Marr Ot V72.81 IRIF-CTK-AFENCULNA CARDIOVASCULAR 02/26/2018 RUFINA ESCOTO, NARAYAN Marr Ot V74.8 SCREEN-BACTERIAL DIS NEC 02/26/2018 NESS ESCOTO, SOSA Shelby Ot 715.31 LOC OSTEOARTH NOS-SHLDER 02/26/2018 NESS ESCOTO, SOSA Shelby Ot 727.61 ROTATOR CUFF RUPTURE 02/26/2018 SOSA GUSMAN MD Ot 840.7 (SLAP) SUPERIOR GLENOID LABRUM LESIONS 02/26/2018 SOSA GUSMAN MD Ot V72.83 EXAM PRE-OPERATIVE NEC 02/26/2018 Ot G56.02 CAR PAL TUNNEL SYNDROME, LEFT UPPER LIMB 02/26/2018 Ot Z01.818 EN COUNTER FOR OTHER PREPROCEDURAL EXAMIN 02/26/2018 Ot Z11.2 ENCO UNTER FOR SCREENING FOR OTHER BACTER 02/26/2018 RASHEED RAHMAN Ot Z12.31 ENCNTR SCREEN MAMMOGRAM FOR MALIGNANT NE 02/26/2018 MORAIMA NOEL DO Ot Z13.89 ENCOUNTER FOR SCREENING FOR OTHER DISORD 02/26/2018 OSSA GUSMAN MD Ot G56.01 CARPAL TUNNEL SYNDROME, RIGHT UPPER LIMB 02/26/2018 SOSA GUSMAN MD Ot Z01.818 ENCOUNTER FOR OTHER PREPROCEDURAL EXAMIN 02/26/2018 MORAIMA NOEL DO Ot J40 BRONCHITIS, NOT SPECIFIED ACUTE OR CH 02/26/2018 MORAIMA NOEL DO Ot J44.9 CHRONIC OBSTRUCTIVE PULMONARY DISEASE, U 02/26/2018 MORAIMA NOEL DO Ot N39.0 URINARY TRACT INFECTION, SITE NOT SPECIF 02/26/2018 DINO TILLMAN Ot R22. 31 LOCALIZED SWELLING, MASS AND LUMP, RIGHT 02/26/2018 RASHEED RAHMAN Ot Z12.31 ENCNTR SCREEN MAMMOGRAM FOR MALIGNANT NE 02/26/2018 SOSA GUSMAN MD Ot M75.121 COMPLETE ROTATR-CUFF TEAR/RUPTR OF R JOSSY 02/26/2018 CLIVE ESCOTO, MEDARDO Chowdhury Ot Z51. 81 ENCOUNTER FOR THERAPEUTIC DRUG LEVEL MON 02/26/2018 MEDARDO DUFFY MD Ot Z79.899 OTHER SKILLED NURSING (CURRENT) DRUG THERAPY 02/26/2018 MEDARDO DUFFY MD Ot Z12. 31 ENCNTR SCREEN MAMMOGRAM FOR MALIGNANT NE 02/26/2018 JEN SANTIAGO MD Ot M25.81 1 OTHER SPECIFIED JOINT DISORDERS, RIGHT S 02/26/2018 [...] TOBACCO CIGARETTES, SELF 02/26/2018 BAIMA, COURTNEY L ASSOCIATE OF SCIENCE IN NURSING Ot 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 02/26/2018 BAIMA, COURTNEY L ASSOCIATE OF SCIENCE IN NURSING Ot 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 02/26/2018 BAIMA, COURTNEY L ASSOCIATE OF SCIENCE IN NURSING Ot 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 02/26/2018 RASHEED RAHMAN ASSOCIATE OF SCIENCE IN NURSING Ot V76.12 OTH SCREEN MAMMO-MALIGN NEOPLASM OF [...] CUFF RUPTURE 02/26/2018 RYAN JONES MD Ot 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 02/26/2018 RYAN JONES MD Ot 788.3 0 UNSPECIFIED URINARY INCONTINENCE 02/26/2018 RYAN JONES MD Ot V72.8 4 EXAM PRE-OPERATIVE NOS 02/26/2018 RYAN JONES MD [...] 02/26/2018 RUFINA ESCOTO, NARAYAN Marr Ot V72.81 TLGE-AVG-AOPEBVEQJ CARDIOVASCULAR 02/26/2018 RUFINA ESCOTO, NARAYAN Marr Ot V74.8 SCREEN-BACTERIAL DIS NEC 02/26/2018 NESS ESCOTO, SOSA Shelby Ot 715.31 LOC OSTEOARTH NOS-SHLDER 02/26/2018 NESS ESCOTO, SOSA Shelby Ot 727.61 ROTATOR CUFF RUPTURE 02/26/2018 NESS ESCOTO, SOSA Shelby Ot 840.7 (SLAP) SUPERIOR GLENOID LABRUM LESIONS 02/26/2018 SOSA GUSMAN MD Ot V72.83 EXAM PRE-OPERATIVE NEC 02/26/2018 Ot G56.02 CAR PAL TUNNEL SYNDROME, LEFT UPPER LIMB 02/26/2018 Ot Z01.818 EN COUNTER FOR OTHER PREPROCEDURAL EXAMIN 02/26/2018 Ot Z11.2 ENCO UNTER FOR SCREENING FOR OTHER BACTER 02/26/2018 RASHEED [...] J44.9 CHRONIC OBSTRUCTIVE PULMONARY DISEASE, U 02/26/2018 BERT HDEZ MORAIMA Sunni Ot N39.0 URINARY TRACT INFECTION, SITE NOT SPECIF 02/26/2018 TILLMANDINO Gan Radu ASSOCIATE OF SCIENCE IN NURSING Ot R22. 31 LOCALIZED SWELLING, MASS AND LUMP, RIGHT 02/26/2018 RASHEED RAHMAN Ot Z12.31 ENCNTR SCREEN MAMMOGRAM FOR MALIGNANT NE 02/26/2018 NESS ESCOTO, SOSA Shelby Ot M75.121 COMPLETE ROTATR-CUFF TEAR/RUPTR OF R JOSSY 02/26/2018 MEDARDO DUFFY MD Ot Z51. 81 ENCOUNTER FOR THERAPEUTIC DRUG LEVEL MON 02/26/2018 MEDARDO DUFFY MD Ot Z79.899 OTHER SKILLED NURSING (CURRENT) DRUG THERAPY 02/26/2018 MEDARDO DUFFY MD Ot Z12. 31 ENCNTR SCREEN MAMMOGRAM FOR MALIGNANT NE 02/26/2018 PAMELA ESCOTO, JEN Zhong Ot M25.81 1 OTHER SPECIFIED JOINT DISORDERS, RIGHT S 02/26/2018 [...] SELF 02/26/2018 COURTNEY HONG Ot 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 02/28/2018 RASHEED RAHMAN Ot V76.12 OTH SCREEN MAMMO-MALIGN NEOPLASM OF SAMANTHA 02/28/2018 RASHEED RAHMAN Ot V76.12 OTH SCREEN MAMMO-MALIGN NEOPLASM OF SAMANTHA 02/28/2018 SAMEERA ESCOTO, ADANAAJENNA Ot V72.84 EXAM PRE-OPERATIVE NOS 02/28/2018 NESS ESCOTO, SOSA Shelby Ot 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 PATELLAE 02/28/2018 NESS ESCOTO, SOSA Shelby Ot V72.84 EXAM PRE-OPERATIVE NOS 02/28/2018 NESS ESCOTO, SOSA Shelby Ot V74.8 SCREEN-BACTERIAL DIS NEC 02/28/2018 NESS ESCOTO, SOSA Shelby Ot 727.61 ROTATOR CUFF RUPTURE 02/28/2018 KAREN ESCOTO, RYAN Moeller Ot 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 02/28/2018 KAREN ESCOTO, RYAN Moeller Ot 788.3 0 UNSPECIFIED URINARY INCONTINENCE 02/28/2018 KAREN ESCOTO, RYAN Moeller Ot V72.8 4 EXAM PRE-OPERATIVE NOS 02/28/2018 KAREN ESCOTO, RYAN Moeller Ot V74.8 SCREEN-BACTERIAL DIS NEC 02/28/2018 GELLENDER DO, MORAIMA A Ot 719.46 JOINT PAIN-L/LEG 02/28/2018 BERT DO, MORAIMA A Ot 724.2 LUMBAGO 02/28/2018 GELLENDER DO, MORAIMA A Ot 959.7 LOWER LEG INJURY NOS 02/28/2018 BERT HDEZ, MORAIMA A Ot E000.8 OTHER EXTERNAL CAUSE STATUS 02/28/2018 BERT HDEZ, MORAIMA A Ot E849.0 ACCIDENT IN HOME 02/28/2018 BERT HDEZ, MORAIMA A Ot E888.9 FALL NOS 02/28/2018 BERT HDEZ, MORAIMA Moeller Ot 789.01 ABDOMINAL PAIN, RIGHT UPPER QUADRANT 02/28/2018 BERT DO, MORAIMA A Ot 575.8 DIS OF GALLBLADDER NEC 02/28/2018 RUFINA ESCOTO, NARAYAN Marr Ot 575.8 DIS OF GALLBLADDER NEC 02/28/2018 RUFINA ESCOTO, NARAYAN Marr Ot V72.63 PRE-PROCEDURAL LABORATORY EXAMINATION 02/28/2018 RUFINA ESCOTO, NARAYAN Marr Ot V72.81 XMML-IME-[id number] CARDIOVASCULAR 02/28/2018 RUFINA ESCOTO, NARAYAN Marr Ot V74.8 SCREEN-BACTERIAL DIS NEC 02/28/2018 NESS ESCOTO, SOSA Shelby Ot 715.31 LOC OSTEOARTH NOS-SHLDER 02/28/2018 SOSA GUSMAN MD Ot 727.61 ROTATOR CUFF RUPTURE 02/28/2018 SOSA GUSMAN MD Ot 840.7 (SLAP) SUPERIOR GLENOID LABRUM LESIONS 02/28/2018 SOSA GUSMAN MD Ot V72.83 EXAM PRE-OPERATIVE NEC 02/28/2018 Ot G56.02 CAR PAL TUNNEL SYNDROME, LEFT UPPER LIMB 02/28/2018 Ot Z01.818 EN COUNTER FOR OTHER PREPROCEDURAL EXAMIN 02/28/2018 Ot Z11.2 ENCO UNTER FOR SCREENING FOR OTHER BACTER 02/28/2018 RASHEED [...] SITE NOT SPECIF 02/28/2018 DINO TILLMAN Ot R22. 31 LOCALIZED SWELLING, MASS AND LUMP, RIGHT 02/28/2018 RASHEED RAHMAN Ot Z12.31 ENCNTR SCREEN MAMMOGRAM FOR MALIGNANT NE 02/28/2018 SOSA GUSMAN MD Ot M75.121 COMPLETE ROTATR-CUFF TEAR/RUPTR OF R JOSSY 02/28/2018 MEDARDO DUFFY MD Ot Z51. 81 ENCOUNTER FOR THERAPEUTIC DRUG LEVEL MON 02/28/2018 MEDARDO DUFFY MD Ot Z79.899 OTHER SKILLED NURSING (CURRENT) DRUG THERAPY 02/28/2018 MEDARDO DUFFY MD Ot Z12. 31 ENCNTR SCREEN MAMMOGRAM FOR MALIGNANT NE 02/28/2018 PAMELA ESCOTO, JEN Zhong Ot M25.81 1 OTHER SPECIFIED JOINT DISORDERS, RIGHT S 02/28/2018 JOSEE ESCOTO FACC, ALI FACP CCDS Ot E78.4 OTHER HYPERLIPIDEMIA 02/28/2018 JOSEE ESOCTO [facility] Ot I10 ESSENTIAL (PRIMARY) HYPERTENSION 02/28/2018 JOSEE ESCOTO [facility] Ot J43.8 OTHER EMPHYSEMA 02/28/2018 JOSEE ESCOTO [facility] Ot R06.02 SHORTNESS OF BREATH 02/28/2018 JOSEE ESCOTO [facility] Ot Z72.0 TOBACCO USE 02/28/2018 SOSA RESENDIZ MD Ot 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 02/28/2018 SOSA RESENDIZ MD Ot T65.222D TOXIC EFFECT OF TOBACCO CIGARETTES, SELF 02/28/2018 SOSA RESENDIZ MD Ot 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 02/28/2018 SOSA RESENDIZ MD Ot T65.222D TOXIC EFFECT OF TOBACCO CIGARETTES, SELF 02/28/2018 RUTHIEAJAY COURTNEY Evan ASSOCIATE OF SCIENCE IN NURSING Ot 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 03/05/2018 RASHEED RAHMAN Ot V76.12 OTH SCREEN [...] CUFF RUPTURE 03/05/2018 RYAN JONES MD Ot 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 03/05/2018 RYAN JONES MD Ot 788.3 0 UNSPECIFIED URINARY INCONTINENCE 03/05/2018 RYAN JONES MD Ot V72.8 4 EXAM PRE-OPERATIVE NOS 03/05/2018 RYAN JONES MD Ot V74.8 SCREEN-BACTERIAL DIS NEC 03/05/2018 MORAIMA NOEL DO Ot 719.46 JOINT PAIN-L/LEG 03/05/2018 BERT HDEZ, [...] 03/05/2018 RUFINA ESCOTO, NARAYAN Marr Ot V72.81 [id number]-[id number] CARDIOVASCULAR 03/05/2018 RUFINA ESCOTO, NARAYAN Marr Ot V74.8 SCREEN-BACTERIAL DIS NEC 03/05/2018 NESS ESCOTO, SOSA Shelby Ot 715.31 LOC OSTEOARTH NOS-SHLDER 03/05/2018 NESS ESCOTO, SOSA Shelby Ot 727.61 ROTATOR CUFF RUPTURE 03/05/2018 NESS ESCOTO, SOSA Shelby Ot 840.7 (SLAP) SUPERIOR GLENOID LABRUM LESIONS 03/05/2018 NESS ESCOTO, SOSA Shelby Ot V72.83 EXAM PRE-OPERATIVE NEC 03/05/2018 Ot G56.02 CAR PAL TUNNEL SYNDROME, LEFT UPPER LIMB 03/05/2018 Ot Z01.818 EN COUNTER FOR OTHER PREPROCEDURAL EXAMIN 03/05/2018 Ot Z11.2 ENCO UNTER FOR SCREENING FOR OTHER BACTER 03/05/2018 RASHEED [...] URINARY TRACT INFECTION, SITE NOT SPECIF 03/05/2018 DINO TILLMAN ASSOCIATE OF SCIENCE IN NURSING Ot R22. 31 LOCALIZED SWELLING, MASS AND LUMP, RIGHT 03/05/2018 JOSIAHNAKIARASHEED ASSOCIATE OF SCIENCE IN NURSING Ot Z12.31 ENCNTR SCREEN MAMMOGRAM FOR MALIGNANT NE 03/05/2018 NESS ESCOTO, SOSA Shelby Ot M75.121 COMPLETE ROTATR-CUFF TEAR/RUPTR OF R JOSSY 03/05/2018 CLIVE ESCOTO, MEDARDO Chowdhury Ot Z51. 81 ENCOUNTER FOR THERAPEUTIC DRUG LEVEL MON 03/05/2018 MEDARDO DUFFY MD Ot Z79.899 OTHER BLENDER CONVEYOR OPERATOR (CURRENT) DRUG THERAPY 03/05/2018 MEDARDO DUFFY MD Ot Z12. 31 ENCNTR SCREEN MAMMOGRAM FOR MALIGNANT NE 03/05/2018 JEN SANTIAGO MD Ot M25.81 1 OTHER SPECIFIED JOINT DISORDERS, RIGHT S 03/05/2018 [...] SELF 03/05/2018 COURTNEY HONG Ot 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 03/05/2018 BAICOURTNEY MOSS ASSOCIATE OF SCIENCE IN NURSING Ot 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 03/17/2018 CITLALI ESCOTO, JUANA Lovelace Ot R06.02 SHORTNESS OF BREATH 03/17/2018 CITLALI ESCOTO, JUANA Lovelace Ot T78.40XA ALLERGY, UNSPECIFIED, INITIAL ENCOUNTER 03/19/2018 [...] ESCOTO FACC, ALI FACP CCDS Ot Z79.82 SKILLED NURSING (CURRENT) USE OF ASPIRIN 03/26/2018 JOSEE ESCOTO FACC, ALI FACP CCDS Ot Z79.899 OTHER SKILLED NURSING (CURRENT) DRUG THERAPY 03/26/2018 JOSEE ESCOTO FACC, [...] ESCOTO FACC, ALI FACP CCDS Ot Z79.82 BLENDER CONVEYOR OPERATOR (CURRENT) USE OF ASPIRIN 03/29/2018 JOSEE ESCOTO FACC, ALI FACP CCDS Ot Z79.899 OTHER SKILLED NURSING (CURRENT) DRUG THERAPY 03/29/2018 JOSEE ESCOTO FACC, ALI FACP CCDS Ot Z82.49 FAMILY HX OF ISCHEM HEART DIS AND OTH DI 04/02/2018 BAIMA, COURTNEY L ASSOCIATE OF SCIENCE IN NURSING Ot E78.4 OTHER HYPERLIPIDEMIA 04/02/2018 BAIMA, COURTNEY L ASSOCIATE OF SCIENCE IN NURSING Ot F17.200 NICOTINE DEPENDENCE, UNSPECIFIED, UNCOMP 04/02/2018 BAIMA, COURTNEY L ASSOCIATE OF SCIENCE IN NURSING Ot I 10 ESSENTIAL (PRIMARY) HYPERTENSION 04/02/2018 BAIMA, COURTNEY L ASSOCIATE OF SCIENCE IN NURSING Ot 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 EXTR [facility] 04/05/2018 BAIMA, COURTNEY L ASSOCIATE OF SCIENCE IN NURSING Ot E78.2 MIXED HYPERLIPIDEMIA 04/05/2018 BAIMA, COURTNEY L ASSOCIATE OF SCIENCE IN NURSING Ot I 10 ESSENTIAL (PRIMARY) HYPERTENSION 04/05/2018 BAIMA, COURTNEY L ASSOCIATE OF SCIENCE IN NURSING Ot I65.23 OCCLUSION AND STENOSIS OF BILATERAL [place] 04/05/2018 BAIMA, COURTNEY L ASSOCIATE OF SCIENCE IN NURSING Ot 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 EXTR [facility] 04/05/2018 BAIMA, COURTNEY L ASSOCIATE OF SCIENCE IN NURSING Ot R06.00 DYSPNEA, UNSPECIFIED 04/05/2018 BAIMA, COURTNEY L ASSOCIATE OF SCIENCE IN NURSING Ot R60.0 LOCALIZED EDEMA 04/09/2018 BAIMA, COURTNEY L ASSOCIATE OF SCIENCE IN NURSING Ot E78.4 OTHER HYPERLIPIDEMIA 04/09/2018 BAIMA, COURTNEY L ASSOCIATE OF SCIENCE IN NURSING Ot F17.200 NICOTINE DEPENDENCE, UNSPECIFIED, UNCOMP 04/09/2018 BAIAJAY, COURTNEY L ASSOCIATE OF SCIENCE IN NURSING Ot I 10 ESSENTIAL (PRIMARY) HYPERTENSION 04/09/2018 BAIMA, COURTNEY L ASSOCIATE OF SCIENCE IN NURSING Ot 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 04/18/2018 BAIAJAY, COURTNEY L ASSOCIATE OF SCIENCE IN NURSING Ot E78.2 MIXED HYPERLIPIDEMIA 04/18/2018 BAIMA, COURTNEY L ASSOCIATE OF SCIENCE IN NURSING Ot I 10 ESSENTIAL (PRIMARY) HYPERTENSION 04/18/2018 BAIMA, COURTNEY L ASSOCIATE OF SCIENCE IN NURSING Ot I65.23 OCCLUSION AND STENOSIS OF BILATERAL [place] 04/18/2018 BAIMA, COURTNEY L ASSOCIATE OF SCIENCE IN NURSING Ot 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 04/18/2018 BAIMA, COURTNEY L ASSOCIATE OF SCIENCE IN NURSING Ot R06.00 DYSPNEA, UNSPECIFIED 04/18/2018 BAIMA, COURTNEY L ASSOCIATE OF SCIENCE IN NURSING Ot R60.0 LOCALIZED EDEMA 04/19/2018 RASHEED RAHMAN ASSOCIATE OF SCIENCE IN NURSING Ot V76.12 OTH SCREEN MAMMO-MALIGN NEOPLASM OF SAMANTHA 04/19/2018 RASHEED RAHMAN ASSOCIATE OF SCIENCE IN NURSING Ot V76.12 OTH SCREEN MAMMO-MALIGN NEOPLASM OF SAMANTHA 04/19/2018 SAMEERA ESCOTO, JAMIE Ot V72.84 EXAM PRE-OPERATIVE NOS 04/19/2018 NESS ESCOTO, SOSA Shelby Ot 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 PATELLAE 04/19/2018 SOSA GUSMAN MD Ot V72.84 EXAM PRE-OPERATIVE NOS 04/19/2018 SOSA GUSMAN MD Ot V74.8 SCREEN-BACTERIAL DIS NEC 04/19/2018 SOSA GUSMAN MD Ot 727.61 ROTATOR CUFF RUPTURE 04/19/2018 RYAN JONES MD Ot 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 04/19/2018 RYAN JONES MD Ot 788.3 0 UNSPECIFIED URINARY INCONTINENCE 04/19/2018 RYAN JONES MD Ot V72.8 4 EXAM PRE-OPERATIVE NOS 04/19/2018 RYAN JONES MD Ot V74.8 SCREEN-BACTERIAL DIS NEC 04/19/2018 MORAIMA NOEL DO Ot 719.46 JOINT PAIN-L/LEG 04/19/2018 MORAIMA NOEL DO Ot 724.2 LUMBAGO 04/19/2018 MORAIMA NOEL DO Ot 959.7 LOWER LEG INJURY NOS 04/19/2018 BERT HDEZ MORAIMA Moeller Ot E000.8 OTHER EXTERNAL CAUSE STATUS 04/19/2018 MORAIMA NOEL DO Sunni Ot E849.0 ACCIDENT IN HOME 04/19/2018 BERT HDEZ MORAIMA Moeller Ot E888.9 FALL NOS 04/19/2018 BERT HDEZ MORAIMA Moeller Ot 789.01 ABDOMINAL PAIN, RIGHT UPPER QUADRANT 04/19/2018 BERT HDEZ MORAIMA Moeller Ot 575.8 DIS OF GALLBLADDER NEC 04/19/2018 RUFINA ESCOTO, NARAYAN Marr Ot 575.8 DIS OF GALLBLADDER NEC 04/19/2018 RUFINA ESCOTO, NARAYAN Marr Ot V72.63 PRE-PROCEDURAL LABORATORY EXAMINATION 04/19/2018 RUFINA ESCOTO, NARAYAN Marr Ot V72.81 [id number]-[id number] CARDIOVASCULAR 04/19/2018 RUFINA ESCOTO, NARAYAN Marr Ot V74.8 SCREEN-BACTERIAL DIS NEC 04/19/2018 NESS ESCOTO, SOSA Shelby Ot 715.31 LOC OSTEOARTH NOS-SHLDER 04/19/2018 NESS ESCOTO, SOSA Shelby Ot 727.61 ROTATOR CUFF RUPTURE 04/19/2018 NESS ESCOTO, SOSA Shelby Ot 840.7 (SLAP) SUPERIOR GLENOID LABRUM LESIONS 04/19/2018 SOSA GUSMAN MD Ot V72.83 EXAM PRE-OPERATIVE NEC 04/19/2018 Ot G56.02 CAR PAL TUNNEL SYNDROME, LEFT UPPER LIMB 04/19/2018 Ot Z01.818 EN COUNTER FOR OTHER PREPROCEDURAL EXAMIN 04/19/2018 Ot Z11.2 ENCO UNTER FOR SCREENING FOR OTHER BACTER 04/19/2018 RASHEED [...] CHRONIC OBSTRUCTIVE PULMONARY DISEASE, U 04/19/2018 BERT HDEZ MORAIMA Moeller Ot N39.0 URINARY TRACT INFECTION, SITE NOT SPECIF 04/19/2018 TILLMANDINO Gan Radu ASSOCIATE OF SCIENCE IN NURSING Ot R22. 31 LOCALIZED SWELLING, MASS AND LUMP, RIGHT 04/19/2018 RASHEED RAHMAN DIAMOND Ot Z12.31 ENCNTR SCREEN MAMMOGRAM FOR MALIGNANT NE 04/19/2018 NESS ESCOTO, SOSA Shelby Ot M75.121 COMPLETE ROTATR-CUFF TEAR/RUPTR OF R JOSSY 04/19/2018 MEDARDO DUFFY MD Ot Z51. 81 ENCOUNTER FOR THERAPEUTIC DRUG LEVEL MON 04/19/2018 MEDARDO DUFFY MD, Ot Z79.899 OTHER BLENDER CONVEYOR OPERATOR (CURRENT) DRUG THERAPY 04/19/2018 MEDARDO DUFFY MD, Ot Z12. 31 ENCNTR SCREEN MAMMOGRAM FOR MALIGNANT NE 04/19/2018 PAMELA ESCOTO, JEN Zhong Ot M25.81 1 OTHER SPECIFIED JOINT DISORDERS, RIGHT S 04/19/2018 [...] OF TOBACCO CIGARETTES, SELF 04/19/2018 COURTNEY HONG ASSOCIATE OF SCIENCE IN NURSING Ot E78.4 OTHER HYPERLIPIDEMIA 04/19/2018 COURTNEY HONG ASSOCIATE OF SCIENCE IN NURSING Ot F17.200 NICOTINE DEPENDENCE, UNSPECIFIED, UNCOMP 04/19/2018 COURTNEY HONG ASSOCIATE OF SCIENCE IN NURSING Ot I 10 ESSENTIAL (PRIMARY) HYPERTENSION 04/19/2018 BAIMA, COURTNEY L ASSOCIATE OF SCIENCE IN NURSING Ot 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 EXTR [facility] 04/19/2018 BAIMA, COURTNEY L ASSOCIATE OF SCIENCE IN NURSING Ot E78.2 MIXED HYPERLIPIDEMIA 04/19/2018 BAIMA, COURTNEY L ASSOCIATE OF SCIENCE IN NURSING Ot I 10 ESSENTIAL (PRIMARY) HYPERTENSION 04/19/2018 BAIMA, COURTNEY L ASSOCIATE OF SCIENCE IN NURSING Ot I65.23 OCCLUSION AND STENOSIS OF BILATERAL [place] 04/19/2018 BAIMA, COURTNEY L ASSOCIATE OF SCIENCE IN NURSING Ot 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 [facility] 04/19/2018 BAIMA, COURTNEY L ASSOCIATE OF SCIENCE IN NURSING Ot R06.00 DYSPNEA, UNSPECIFIED 04/19/2018 BAIMA, COURTNEY L ASSOCIATE OF SCIENCE IN NURSING Ot R60.0 LOCALIZED EDEMA 04/23/2018 BAIMA, COURTNEY L ASSOCIATE OF SCIENCE IN NURSING Ot E78.2 MIXED HYPERLIPIDEMIA 04/23/2018 BAIMA, COURTNEY L ASSOCIATE OF SCIENCE IN NURSING Ot I 10 ESSENTIAL (PRIMARY) HYPERTENSION 04/23/2018 BAIMA, COURTNEY L ASSOCIATE OF SCIENCE IN NURSING Ot I65.23 OCCLUSION AND STENOSIS OF BILATERAL [place] 04/23/2018 BAIMA, COURTNEY L ASSOCIATE OF SCIENCE IN NURSING Ot 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 [facility] 04/23/2018 BAIMA, COURTNEY L ASSOCIATE OF SCIENCE IN NURSING Ot R06.09 OTHER FORMS OF DYSPNEA 04/23/2018 BAIMA, COURTNEY L ASSOCIATE OF SCIENCE IN NURSING Ot R60.0 LOCALIZED EDEMA 05/01/2018 BAIMA, COURTNEY L ASSOCIATE OF SCIENCE IN NURSING Ot E78.2 MIXED HYPERLIPIDEMIA 05/01/2018 BAIMA, COURTNEY L ASSOCIATE OF SCIENCE IN NURSING Ot I 10 ESSENTIAL (PRIMARY) HYPERTENSION 05/01/2018 BAIMA, COURTNEY L ASSOCIATE OF SCIENCE IN NURSING Ot I65.23 OCCLUSION AND STENOSIS OF BILATERAL [place] 05/01/2018 BAIMA, COURTNEY L ASSOCIATE OF SCIENCE IN NURSING Ot 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 05/01/2018 BAIMA, COURTNEY L ASSOCIATE OF SCIENCE IN NURSING Ot R06.09 OTHER FORMS OF DYSPNEA 05/01/2018 BAIMA, COURTNEY L ASSOCIATE OF SCIENCE IN NURSING Ot R60.0 LOCALIZED EDEMA 05/19/2018 LIBERTY SANDOVAL APRN Ot E78.00 PURE HYPERCHOLESTEROLEMIA, UNSPECIFIED 05/19/2018 LIBERTY SANDOVAL APRN Ot F41 .9 ANXIETY DISORDER, UNSPECIFIED 05/19/2018 LIBERTY SANDOVAL APRN Ot G47.30 SLEEP APNEA, UNSPECIFIED 05/19/2018 LIBERTY SANDOVAL APRN Ot I10 ESSENTIAL (PRIMARY) HYPERTENSION 05/19/2018 LIBERTY SANDOVAL APRN Ot J44 .9 CHRONIC OBSTRUCTIVE PULMONARY DISEASE, U 05/19/2018 LIBERTY SANDOVAL APRN Ot K21 .9 GASTRO-ESOPHAGEAL REFLUX DISEASE WITHOUT 05/19/2018 LIBERTY SANDOVAL APRN Ot R11 .2 NAUSEA WITH VOMITING, UNSPECIFIED 05/19/2018 LIBERTY SANDOVAL APRN Ot R19 .7 DIARRHEA, UNSPECIFIED 05/19/2018 LIBERTY SANDOVAL APRN Ot Z79.52 BLENDER CONVEYOR OPERATOR (CURRENT) USE OF SYSTEMIC STER 05/19/2018 LIBERTY SANDOVAL APRN Ot Z79.82 BLENDER CONVEYOR OPERATOR (CURRENT) USE OF ASPIRIN 05/19/2018 LIBERTY SANDOVAL APRN Ot Z87.448 PERSONAL HISTORY OF OTHER DISEASES OF UR 05/19/2018 LIBERTY SANDOVAL APRN Ot Z88 .2 ALLERGY STATUS TO SULFONAMIDES STATUS 05/19/2018 LIBERTY SANDOVAL APRN Ot Z88 .5 ALLERGY STATUS TO NARCOTIC AGENT STATUS 05/19/2018 LIBERTY SANDOVAL APRN Ot Z88 .8 ALLERGY STATUS TO OTH DRUG/MEDS/BIOL SUB 05/19/2018 LIBERTY SANDOVAL APRN Ot Z90.710 ACQUIRED ABSENCE OF BOTH CERVIX AND UTER 05/19/2018 LIBERTY SANDOVAL APRN Ot Z95 .9 PRESENCE OF CARDIAC AND VASCULAR IMPLANT 05/19/2018 LIBERTY SANDOVAL APRN Ot Z96.651 PRESENCE OF RIGHT ARTIFICIAL KNEE JOINT 05/22/2018 LIBERTY SANDOVAL APRN Ot E78.00 PURE HYPERCHOLESTEROLEMIA, UNSPECIFIED 05/22/2018 LIBERTY SANDOVAL APRN Ot F41 .9 ANXIETY DISORDER, UNSPECIFIED 05/22/2018 LIBERTY SANDOVAL APRN Ot G47.30 SLEEP APNEA, UNSPECIFIED 05/22/2018 LIBERTY SANDOVAL APRN Ot I10 ESSENTIAL (PRIMARY) HYPERTENSION 05/22/2018 LIBERTY SANDOVAL APRN Ot J44 .9 CHRONIC OBSTRUCTIVE PULMONARY DISEASE, U 05/22/2018 LIBERTY SANDOVAL APRN Ot K21 .9 GASTRO-ESOPHAGEAL REFLUX DISEASE WITHOUT 05/22/2018 LIBERTY SANDOVAL APRN Ot R11 .2 NAUSEA WITH VOMITING, UNSPECIFIED 05/22/2018 LIBERTY SANDOVAL APRN Ot R19 .7 DIARRHEA, UNSPECIFIED 05/22/2018 LIBERTY SANDOVAL APRN Ot Z79.52 BLENDER CONVEYOR OPERATOR (CURRENT) USE OF SYSTEMIC STER 05/22/2018 LIBERTY SANDOVAL APRN Ot Z79.82 BLENDER CONVEYOR OPERATOR (CURRENT) USE OF ASPIRIN 05/22/2018 LIBERTY SANDOVAL APRN Ot Z87.448 PERSONAL HISTORY OF OTHER DISEASES OF UR 05/22/2018 LIBERTY SANDOVAL APRN Ot Z88 .2 ALLERGY STATUS TO SULFONAMIDES STATUS 05/22/2018 LIBERTY SANDOVAL APRN Ot Z88 .5 ALLERGY STATUS TO NARCOTIC AGENT STATUS 05/22/2018 LIBERTY SANDOVAL APRN Ot Z88 .8 ALLERGY STATUS TO OTH DRUG/MEDS/BIOL SUB 05/22/2018 LIBERTY SANDOVAL APRN Ot Z90.710 ACQUIRED ABSENCE OF BOTH CERVIX AND UTER 05/22/2018 LIBERTY SANDOVAL APRN Ot Z95 .9 PRESENCE OF CARDIAC AND VASCULAR IMPLANT 05/22/2018 LIBERTY SANDOVAL APRN Ot Z96.651 PRESENCE OF RIGHT ARTIFICIAL KNEE JOINT 05/29/2018 SAKINA PARRA RETAIL BUSINESS MANAGER Ot Z12.31 ENCNTR SCREEN MAMMOGRAM FOR MALIGNANT NE 06/03/2018 SAKINA PARRA RETAIL BUSINESS MANAGER Ot Z12.31 ENCNTR SCREEN MAMMOGRAM FOR MALIGNANT NE 06/07/2018 SAKINA PARRA RETAIL BUSINESS MANAGER Ot Z12.31 ENCNTR SCREEN MAMMOGRAM FOR MALIGNANT NE 06/10/2018 JEN SANTIAGO MD Ot M25.51 2 PAIN IN LEFT SHOULDER 06/10/2018 JEN SANITAGO MD Ot Z47.89 ENCOUNTER FOR OTHER ORTHOPEDIC AFTERCARE 06/12/2018 JEN SANTIAGO MD Ot M25.51 2 PAIN IN LEFT SHOULDER 06/12/2018 JEN SANTIAGO MD Ot Z47.89 ENCOUNTER FOR OTHER ORTHOPEDIC AFTERCARE 07/02/2018 JEN SANTIAGO MD Ot M25.51 2 PAIN IN LEFT SHOULDER 07/02/2018 JEN SANTIAGO MD Ot Z47.89 ENCOUNTER FOR OTHER ORTHOPEDIC AFTERCARE 07/03/2018 JEN SANTIAGO MD Ot M25.51 2 PAIN IN LEFT SHOULDER 07/03/2018 JEN SANTIAGO MD Ot Z47.89 ENCOUNTER FOR OTHER ORTHOPEDIC AFTERCARE 07/27/2018 DAISY, LEANNA E RETAIL BUSINESS MANAGER Ot G47.9 SLEEP DISORDER, UNSPECIFIED 07/27/2018 DAISY LEANNA E RETAIL BUSINESS MANAGER Ot G47.9 SLEEP DISORDER, UNSPECIFIED 07/28/2018 YA VILLAINE E RETAIL BUSINESS MANAGER Ot G47.9 SLEEP DISORDER, UNSPECIFIED 07/28/2018 DAISY, LEANNA E RETAIL BUSINESS MANAGER Ot G47.9 SLEEP DISORDER, UNSPECIFIED 07/28/2018 DAISY, LEANNA E RETAIL BUSINESS MANAGER Ot G47.9 SLEEP DISORDER, UNSPECIFIED 07/28/2018 DAISY LEANNA E RETAIL BUSINESS MANAGER Ot E66.09 OTHER OBESITY DUE TO EXCESS CALORIES 07/28/2018 DAISY LEANNA E RETAIL BUSINESS MANAGER Ot G47.10 HYPERSOMNIA, UNSPECIFIED 07/28/2018 YA VILLAINE E RETAIL BUSINESS MANAGER Ot G47.50 PARASOMNIA, UNSPECIFIED 07/28/2018 DAISY LEANNA E RETAIL BUSINESS MANAGER Ot J43.8 OTHER EMPHYSEMA 07/28/2018 DAISY LEANNA E RETAIL BUSINESS MANAGER Ot R06.02 SHORTNESS OF BREATH 07/28/2018 YA VILLAINE E RETAIL BUSINESS MANAGER Ot Z72.0 TOBACCO USE 07/29/2018 DAISY LEANNA E RETAIL BUSINESS MANAGER Ot E66.09 OTHER OBESITY DUE TO EXCESS CALORIES 07/29/2018 DAISY LEANNA E RETAIL BUSINESS MANAGER Ot G47.10 HYPERSOMNIA, UNSPECIFIED 07/29/2018 AY VILLAINE E RETAIL BUSINESS MANAGER Ot G47.50 PARASOMNIA, UNSPECIFIED 07/29/2018 DAISY LEANNA E RETAIL BUSINESS MANAGER Ot J43.8 OTHER EMPHYSEMA 07/29/2018 DAISY LEANNA E RETAIL BUSINESS MANAGER Ot R06.02 SHORTNESS OF BREATH 07/29/2018 YA VILLAINE E RETAIL BUSINESS MANAGER Ot Z72.0 TOBACCO USE 07/29/2018 DAISY LEANNA E RETAIL BUSINESS MANAGER Ot E66.09 OTHER OBESITY DUE TO EXCESS CALORIES 07/29/2018 DAISY LEANNA E RETAIL BUSINESS MANAGER Ot G47.10 HYPERSOMNIA, UNSPECIFIED 07/29/2018 DAISY LEANNA E RETAIL BUSINESS MANAGER Ot G47.50 PARASOMNIA, UNSPECIFIED 07/29/2018 DAISY LEANNA E RETAIL BUSINESS MANAGER Ot J43.8 OTHER EMPHYSEMA 07/29/2018 YA VILLAINE E RETAIL BUSINESS MANAGER Ot R06.02 SHORTNESS OF BREATH 07/29/2018 YA VILLAINE E RETAIL BUSINESS MANAGER Ot Z72.0 TOBACCO USE 07/31/2018 Ot E66.9 OBES ITY, UNSPECIFIED 07/31/2018 Ot G47.10 HYP ERSOMNIA, UNSPECIFIED 07/31/2018 Ot G47.33 OBS TRUCTIVE SLEEP APNEA (ADULT) (PEDIATR 07/31/2018 Ot G47.50 PAR ASOMNIA, UNSPECIFIED 07/31/2018 Ot 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 OBSTRUCTIVE PULMONARY DISEASE, U 07/31/2018 Ot R06.02 JOSSY RTNESS OF BREATH 07/31/2018 Ot Z68.42 BOD Y MASS INDEX (BMI) 45.0-49.9, ADULT 07/31/2018 Ot Z72.0 TOBA INDUSTRIAL SWEEPER CLEANER USE 08/08/2018 LEANNA VILLA APRN Ot E66.09 OTHER OBESITY DUE TO EXCESS CALORIES 08/08/2018 LEANNA VILLA APRN Ot G47.10 HYPERSOMNIA, UNSPECIFIED 08/08/2018 LEANNA VILLA APRN Ot G47.50 PARASOMNIA, UNSPECIFIED 08/08/2018 LEANNA VILLA APRN Ot J43.8 OTHER EMPHYSEMA 08/08/2018 LEANNA VILLA APRN Ot R06.02 SHORTNESS OF BREATH 08/08/2018 LEANNA VILLA APRN Ot Z72.0 TOBACCO USE 08/26/2018 JOSIAH, RASHEED DIAMOND Ot V76.12 OTH SCREEN MAMMO-MALIGN NEOPLASM OF SAMANTHA 08/26/2018 JAMIE LOVE MD Ot V72.84 EXAM PRE-OPERATIVE NOS 08/26/2018 SOSA GUSMAN MD Ot 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 PATELLAE 08/26/2018 SOSA GUSMAN MD Ot V72.84 EXAM PRE-OPERATIVE NOS 08/26/2018 SOSA GUSMAN MD Ot V74.8 SCREEN-BACTERIAL DIS NEC 08/26/2018 SOSA UGSMAN MD Ot 727.61 ROTATOR CUFF RUPTURE 08/26/2018 RYAN JONES MD Ot 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 08/26/2018 RYAN JONES MD Ot 788.3 0 UNSPECIFIED URINARY INCONTINENCE 08/26/2018 RYAN JONES MD Ot V72.8 4 EXAM PRE-OPERATIVE NOS 08/26/2018 RYAN JONES MD Ot V74.8 SCREEN-BACTERIAL DIS NEC 08/26/2018 BERT HDEZ, MORAIMA Moeller Ot 719.46 JOINT PAIN-L/LEG 08/26/2018 MORAIMA NOEL DO Ot 724.2 LUMBAGO 08/26/2018 MORAIMA NOEL DO Ot 959.7 LOWER LEG INJURY NOS 08/26/2018 MORAIMA NOEL DO Ot E000.8 OTHER EXTERNAL CAUSE STATUS 08/26/2018 MORAIMA NOEL DO Ot E849.0 ACCIDENT IN HOME 08/26/2018 MORAIMA NOEL DO Ot E888.9 FALL NOS 08/26/2018 MORAIMA NOEL DO Ot 789.01 ABDOMINAL PAIN, RIGHT UPPER QUADRANT 08/26/2018 MORAIMA NOEL DO Ot 575.8 DIS OF GALLBLADDER NEC 08/26/2018 RUFINA ESCOTO, NARAYAN Marr Ot 575.8 DIS OF GALLBLADDER NEC 08/26/2018 RUFINA ESCOTO, NARAYAN Marr Ot V72.63 PRE-PROCEDURAL LABORATORY EXAMINATION 08/26/2018 RUFINA ESCOTO, NARAYAN Marr Ot V72.81 SKEI-[id number]-[id number] CARDIOVASCULAR 08/26/2018 RUFINA ESCOTO, NARAYAN Marr Ot V74.8 SCREEN-BACTERIAL DIS NEC 08/26/2018 NESS ESCOTO, SOSA Shelby Ot 715.31 LOC OSTEOARTH NOS-SHLDER 08/26/2018 NESS ECSOTO, SOSA Shelby Ot 727.61 ROTATOR CUFF RUPTURE 08/26/2018 NESS ESCOTO, SOSA Shelby Ot 840.7 (SLAP) SUPERIOR GLENOID LABRUM LESIONS 08/26/2018 NESS ESCOTO, SOSA Shelby Ot V72.83 EXAM PRE-OPERATIVE NEC 08/26/2018 Ot G56.02 CAR PAL TUNNEL SYNDROME, LEFT UPPER LIMB 08/26/2018 Ot Z01.818 EN COUNTER FOR OTHER PREPROCEDURAL EXAMIN 08/26/2018 Ot Z11.2 ENCO UNTER FOR SCREENING FOR OTHER BACTER 08/26/2018 RASHEED RAHMAN Ot Z12.31 ENCNTR SCREEN MAMMOGRAM FOR MALIGNANT NE 08/26/2018 MORAIMA NOEL DO Ot Z13.89 ENCOUNTER FOR SCREENING FOR OTHER DISORD 08/26/2018 NESS ESCOTO, SOSA Shelby Ot G56.01 CARPAL TUNNEL SYNDROME, RIGHT UPPER LIMB 08/26/2018 SOSA GUSMAN MD Ot Z01.818 ENCOUNTER FOR OTHER PREPROCEDURAL EXAMIN 08/26/2018 MORAIMA NOEL DO Ot J40 BRONCHITIS, NOT SPECIFIED ACUTE OR CH 08/26/2018 MORAIMA NOEL DO Ot J44.9 CHRONIC OBSTRUCTIVE PULMONARY DISEASE, U 08/26/2018 MORAIMA NOEL DO Ot N39.0 URINARY TRACT INFECTION, SITE NOT SPECIF 08/26/2018 PRIMO DINO Radu ASSOCIATE OF SCIENCE IN NURSING Ot R22. 31 LOCALIZED SWELLING, MASS AND LUMP, RIGHT 08/26/2018 RASHEED RAHMANP Ot Z12.31 ENCNTR SCREEN MAMMOGRAM FOR MALIGNANT NE 08/26/2018 SOSA GUSMAN MD Ot M75.121 COMPLETE ROTATR-CUFF TEAR/RUPTR OF R JOSSY 08/26/2018 CLIVE ESCOTO, MEDARDO Chowdhury Ot Z51. 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 31 ENCNTR SCREEN MAMMOGRAM FOR MALIGNANT NE 08/26/2018 PAMELA ESCOTO, JEN Zhong Ot M25.81 1 OTHER SPECIFIED JOINT DISORDERS, RIGHT S 08/26/2018 [...] LEFT HEEL AND MIDFO 08/26/2018 SOSA RESENDIZ MD Ot T65.222D TOXIC EFFECT OF TOBACCO CIGARETTES, SELF 08/26/2018 SOSA RESENDIZ MD Ot 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 08/26/2018 SOSA RESENDIZ MD Ot T65.222D TOXIC EFFECT OF TOBACCO CIGARETTES, SELF 08/26/2018 BAIMA, COURTNEY L ASSOCIATE OF SCIENCE IN NURSING Ot E78.4 OTHER HYPERLIPIDEMIA 08/26/2018 BAIMA, COURTNEY L ASSOCIATE OF SCIENCE IN NURSING Ot F17.200 NICOTINE DEPENDENCE, UNSPECIFIED, UNCOMP 08/26/2018 BAIMA, COURTNEY L ASSOCIATE OF SCIENCE IN NURSING Ot I 10 ESSENTIAL (PRIMARY) HYPERTENSION 08/26/2018 BAIMA, COURTNEY L ASSOCIATE OF SCIENCE IN NURSING Ot 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 08/26/2018 BAIMA, COURTNEY L ASSOCIATE OF SCIENCE IN NURSING Ot E78.2 MIXED HYPERLIPIDEMIA 08/26/2018 BAIMA, COURTNEY L ASSOCIATE OF SCIENCE IN NURSING Ot I 10 ESSENTIAL (PRIMARY) HYPERTENSION 08/26/2018 BAIMA, COURTNEY L ASSOCIATE OF SCIENCE IN NURSING Ot I65.23 OCCLUSION AND STENOSIS OF BILATERAL [place] 08/26/2018 BAIMA, COURTNEY L ASSOCIATE OF SCIENCE IN NURSING Ot 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 08/26/2018 BAIMA, COURTNEY L ASSOCIATE OF SCIENCE IN NURSING Ot R06.00 DYSPNEA, UNSPECIFIED 08/26/2018 BAIMA, COURTNEY L ASSOCIATE OF SCIENCE IN NURSING Ot R60.0 LOCALIZED EDEMA 08/26/2018 BAIMA, COURTNEY L ASSOCIATE OF SCIENCE IN NURSING Ot E78.2 MIXED HYPERLIPIDEMIA 08/26/2018 BAIMA, COURTNEY L ASSOCIATE OF SCIENCE IN NURSING Ot I 10 ESSENTIAL (PRIMARY) HYPERTENSION 08/26/2018 BAIMA, COURTNEY L ASSOCIATE OF SCIENCE IN NURSING Ot I65.23 OCCLUSION AND STENOSIS OF BILATERAL [place] 08/26/2018 BAIMA, COURTNEY L ASSOCIATE OF SCIENCE IN NURSING Ot 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 08/26/2018 BAIMA, COURTNEY L ASSOCIATE OF SCIENCE IN NURSING Ot R06.09 OTHER FORMS OF DYSPNEA 08/26/2018 BAIMA, COURTNEY L ASSOCIATE OF SCIENCE IN NURSING Ot R60.0 LOCALIZED EDEMA 08/26/2018 SAKINA PARRA RETAIL BUSINESS MANAGER Ot Z12.31 ENCNTR SCREEN MAMMOGRAM FOR MALIGNANT NE 08/26/2018 LEANNA VILLA APRN Ot E66.09 OTHER OBESITY DUE TO EXCESS CALORIES 08/26/2018 LEANNA VILLA APRN Ot G47.50 PARASOMNIA, UNSPECIFIED 08/26/2018 LEANNA VILLA APRN Ot J44.9 CHRONIC OBSTRUCTIVE PULMONARY DISEASE, U 08/26/2018 LEANNA VILLA APRN Ot R29.818 OTHER SYMPTOMS AND SIGNS INVOLVING THE N 08/26/2018 LEANNA VILLA APRN Ot R91.8 OTHER NONSPECIFIC ABNORMAL FINDING OF LISA 08/26/2018 LEANNA VILLA RETAIL BUSINESS MANAGER Ot Z72.0 TOBACCO USE 08/26/2018 LEANNA VILLA RETAIL BUSINESS MANAGER Ot E66.09 OTHER OBESITY DUE TO EXCESS CALORIES 08/26/2018 LEANNA VILLA RETAIL BUSINESS MANAGER Ot G47.10 HYPERSOMNIA, UNSPECIFIED 08/26/2018 LEANNA VILLA RETAIL BUSINESS MANAGER Ot G47.50 PARASOMNIA, UNSPECIFIED 08/26/2018 LEANNA VILLA RETAIL BUSINESS MANAGER Ot J43.8 OTHER EMPHYSEMA 08/26/2018 LEANNA VILLA RETAIL BUSINESS MANAGER Ot R06.02 SHORTNESS OF BREATH 08/26/2018 LEANNA VILLA RETAIL BUSINESS MANAGER Ot Z72.0 TOBACCO USE 08/26/2018 Ot E66.9 OBES ITY, UNSPECIFIED 08/26/2018 Ot G47.10 HYP ERSOMNIA, UNSPECIFIED 08/26/2018 Ot G47.33 OBS TRUCTIVE SLEEP APNEA (ADULT) (PEDIATR 08/26/2018 Ot G47.50 PAR ASOMNIA, UNSPECIFIED 08/26/2018 Ot 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 OBSTRUCTIVE PULMONARY DISEASE, U 08/26/2018 Ot R06.02 JOSSY RTNESS OF BREATH 08/26/2018 Ot Z68.42 BOD Y MASS INDEX (BMI) 45.0-49.9, ADULT 08/26/2018 Ot Z72.0 TOBA INDUSTRIAL 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33 OBS TRUCTIVE SLEEP APNEA (ADULT) (PEDIATR 08/26/2018 Ot G47.50 PAR ASOMNIA, UNSPECIFIED 08/26/2018 Ot 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 OBSTRUCTIVE PULMONARY DISEASE, U 08/26/2018 Ot R06.02 JOSSY RTNESS OF BREATH 08/26/2018 Ot Z68.42 BOD Y MASS INDEX (BMI) 45.0-49.9, ADULT 08/26/2018 Ot Z72.0 TOBA INDUSTRIAL SWEEPER CLEANER USE 08/30/2018 LEANNA VILLA RETAIL BUSINESS MANAGER Ot E66.09 OTHER OBESITY DUE TO EXCESS CALORIES 08/30/2018 YA VILLAINE E RETAIL BUSINESS MANAGER Ot G47.50 PARASOMNIA, UNSPECIFIED 08/30/2018 YA VILLAINE E RETAIL BUSINESS MANAGER Ot J44.9 CHRONIC OBSTRUCTIVE PULMONARY DISEASE, U 08/30/2018 LEANNA VILLA RETAIL BUSINESS MANAGER Ot R29.818 OTHER SYMPTOMS AND SIGNS INVOLVING THE N 08/30/2018 AY VILLAINE Arvin RETAIL BUSINESS MANAGER Ot R91.8 OTHER NONSPECIFIC ABNORMAL FINDING OF LISA 08/30/2018 LEANNA VILLA RETAIL BUSINESS MANAGER Ot Z72.0 TOBACCO USE 09/16/2018 LEANNA VILLA RETAIL BUSINESS MANAGER Ot E66.9 OBESITY, UNSPECIFIED 09/16/2018 YA VILLAINE E RETAIL BUSINESS MANAGER Ot G47.10 HYPERSOMNIA, UNSPECIFIED 09/16/2018 YA VILLAINE E RETAIL BUSINESS MANAGER Ot G47.33 OBSTRUCTIVE SLEEP APNEA (ADULT) (PEDIATR 09/16/2018 LEANNA VILLA RETAIL BUSINESS MANAGER Ot G47.50 PARASOMNIA, UNSPECIFIED 09/16/2018 LEANNA VILLA RETAIL BUSINESS MANAGER Ot J44.9 CHRONIC OBSTRUCTIVE PULMONARY DISEASE, U 09/16/2018 LEANNA VILLA RETAIL BUSINESS MANAGER Ot R06.02 SHORTNESS OF BREATH 09/16/2018 LEANNA VILLA RETAIL BUSINESS MANAGER Ot Z68.42 BODY MASS INDEX (BMI) 45.0-49.9, ADULT 09/16/2018 LEANNA VILLA RETAIL BUSINESS MANAGER Ot Z72.0 TOBACCO USE 09/17/2018 YA VILLAINE E RETAIL BUSINESS MANAGER Ot E66.9 OBESITY, UNSPECIFIED 09/17/2018 YA VILLAINE E RETAIL BUSINESS MANAGER Ot G47.10 HYPERSOMNIA, UNSPECIFIED 09/17/2018 YA VILLAINE E RETAIL BUSINESS MANAGER Ot G47.33 OBSTRUCTIVE SLEEP APNEA (ADULT) (PEDIATR 09/17/2018 YA VILLAINE E RETAIL BUSINESS MANAGER Ot G47.50 PARASOMNIA, UNSPECIFIED 09/17/2018 DAISY, LEANNA E RETAIL BUSINESS MANAGER Ot J44.9 CHRONIC OBSTRUCTIVE PULMONARY DISEASE, U 09/17/2018 DAISY, LEANNA E RETAIL BUSINESS MANAGER Ot R06.02 SHORTNESS OF BREATH 09/17/2018 DAISY, LEANNA E RETAIL BUSINESS MANAGER Ot Z68.42 BODY MASS INDEX (BMI) 45.0-49.9, ADULT 09/17/2018 DAISY, LEANNA E RETAIL BUSINESS MANAGER Ot Z72.0 TOBACCO USE 09/19/2018 DAISY, LEANNA E RETAIL BUSINESS MANAGER Ot E66.9 OBESITY, UNSPECIFIED 09/19/2018 DAISY, LEANNA E RETAIL BUSINESS MANAGER Ot G47.10 HYPERSOMNIA, UNSPECIFIED 09/19/2018 DAISY, LEANNA E RETAIL BUSINESS MANAGER Ot G47.33 OBSTRUCTIVE SLEEP APNEA (ADULT) (PEDIATR 09/19/2018 DAISY, LEANNA E RETAIL BUSINESS MANAGER Ot G47.50 PARASOMNIA, UNSPECIFIED 09/19/2018 DAISY, LEANNA E RETAIL BUSINESS MANAGER Ot J44.9 CHRONIC OBSTRUCTIVE PULMONARY DISEASE, U 09/19/2018 DAISY, LEANNA E RETAIL BUSINESS MANAGER Ot R06.02 SHORTNESS OF BREATH 09/19/2018 DAISY, LEANNA E RETAIL BUSINESS MANAGER Ot Z68.42 BODY MASS INDEX (BMI) 45.0-49.9, ADULT 09/19/2018 DAISY, LEANNA E RETAIL BUSINESS MANAGER Ot Z72.0 TOBACCO USE 09/26/2018 DAISY, LEANNA E RETAIL BUSINESS MANAGER Ot E66.9 OBESITY, UNSPECIFIED 09/26/2018 DAISY, LEANNA E RETAIL BUSINESS MANAGER Ot G47.10 HYPERSOMNIA, UNSPECIFIED 09/26/2018 DAISY, LEANNA E RETAIL BUSINESS MANAGER Ot G47.33 OBSTRUCTIVE SLEEP APNEA (ADULT) (PEDIATR 09/26/2018 DAISY, LEANNA E RETAIL BUSINESS MANAGER Ot G47.50 PARASOMNIA, UNSPECIFIED 09/26/2018 DAISY, LEANNA E RETAIL BUSINESS MANAGER Ot J44.9 CHRONIC OBSTRUCTIVE PULMONARY DISEASE, U 09/26/2018 DAISY, LEANNA E RETAIL BUSINESS MANAGER Ot R06.02 SHORTNESS OF BREATH 09/26/2018 DAISY, LEANNA E RETAIL BUSINESS MANAGER Ot Z68.42 BODY MASS INDEX (BMI) 45.0-49.9, ADULT 09/26/2018 DAISY, LEANNA E RETAIL BUSINESS MANAGER Ot Z72.0 TOBACCO USE 10/01/2018 DAISY, LEANNA E RETAIL BUSINESS MANAGER Ot E66.9 OBESITY, UNSPECIFIED 10/01/2018 DAISY, LEANNA E RETAIL BUSINESS MANAGER Ot G47.10 HYPERSOMNIA, UNSPECIFIED 10/01/2018 DAISY, LEANNA E RETAIL BUSINESS MANAGER Ot G47.33 OBSTRUCTIVE SLEEP APNEA (ADULT) (PEDIATR 10/01/2018 DAISY, LEANNA E RETAIL BUSINESS MANAGER Ot G47.50 PARASOMNIA, UNSPECIFIED 10/01/2018 DAISY, LEANNA E RETAIL BUSINESS MANAGER Ot J44.9 CHRONIC OBSTRUCTIVE PULMONARY DISEASE, U 10/01/2018 DAISY, LEANNA E RETAIL BUSINESS MANAGER Ot R06.02 SHORTNESS OF BREATH 10/01/2018 DAISY, LEANNA E RETAIL BUSINESS MANAGER Ot Z68.42 BODY MASS INDEX (BMI) 45.0-49.9, ADULT 10/01/2018 DAISY, LEANNA E RETAIL BUSINESS MANAGER Ot Z72.0 TOBACCO USE 10/08/2018 DAISY, LEANNA E RETAIL BUSINESS MANAGER Ot E66.9 OBESITY, UNSPECIFIED 10/08/2018 DAISY, LEANNA E RETAIL BUSINESS MANAGER Ot G47.10 HYPERSOMNIA, UNSPECIFIED 10/08/2018 DAISY, LEANNA E RETAIL BUSINESS MANAGER Ot G47.33 OBSTRUCTIVE SLEEP APNEA (ADULT) (PEDIATR 10/08/2018 DAISY, LEANNA E RETAIL BUSINESS MANAGER Ot G47.50 PARASOMNIA, UNSPECIFIED 10/08/2018 DAISY, LEANNA E RETAIL BUSINESS MANAGER Ot J44.9 CHRONIC OBSTRUCTIVE PULMONARY DISEASE, U 10/08/2018 DAISY, LEANNA E RETAIL BUSINESS MANAGER Ot R06.02 SHORTNESS OF BREATH 10/08/2018 DAISY, LEANNA E RETAIL BUSINESS MANAGER Ot Z68.42 BODY MASS INDEX (BMI) 45.0-49.9, ADULT 10/08/2018 DAISY, LEANNA E RETAIL BUSINESS MANAGER Ot Z72.0 TOBACCO USE 10/10/2018 DAISY, LEANNA E RETAIL BUSINESS MANAGER Ot E66.9 OBESITY, UNSPECIFIED 10/10/2018 DAISY, LEANNA E RETAIL BUSINESS MANAGER Ot G47.10 HYPERSOMNIA, UNSPECIFIED 10/10/2018 DAISY, LEANNA E RETAIL BUSINESS MANAGER Ot G47.33 OBSTRUCTIVE SLEEP APNEA (ADULT) (PEDIATR 10/10/2018 DAISY, LEANNA E RETAIL BUSINESS MANAGER Ot G47.50 PARASOMNIA, UNSPECIFIED 10/10/2018 DAISY, LEANNA E RETAIL BUSINESS MANAGER Ot J44.9 CHRONIC OBSTRUCTIVE PULMONARY DISEASE, U 10/10/2018 DAISY, LEANNA E RETAIL BUSINESS MANAGER Ot R06.02 SHORTNESS OF BREATH 10/10/2018 DAISY, LEANNA E RETAIL BUSINESS MANAGER Ot Z68.42 BODY MASS INDEX (BMI) 45.0-49.9, ADULT 10/10/2018 DAISY, LEANNA E RETAIL BUSINESS MANAGER Ot Z72.0 TOBACCO USE 10/10/2018 DAISY, LEANNA E RETAIL BUSINESS MANAGER Ot E66.9 OBESITY, UNSPECIFIED 10/10/2018 DAISY, LEANNA E RETAIL BUSINESS MANAGER Ot G47.10 HYPERSOMNIA, UNSPECIFIED 10/10/2018 DAISY, LEANNA E RETAIL BUSINESS MANAGER Ot G47.33 OBSTRUCTIVE SLEEP APNEA (ADULT) (PEDIATR 10/10/2018 DAISY, LEANNA E RETAIL BUSINESS MANAGER Ot G47.50 PARASOMNIA, UNSPECIFIED 10/10/2018 DAISY, LEANNA E RETAIL BUSINESS MANAGER Ot J44.9 CHRONIC OBSTRUCTIVE PULMONARY DISEASE, U 10/10/2018 DAISY, LEANNA E RETAIL BUSINESS MANAGER Ot R06.02 SHORTNESS OF BREATH 10/10/2018 DAISY, LEANNA E RETAIL BUSINESS MANAGER Ot Z68.42 BODY MASS INDEX (BMI) 45.0-49.9, ADULT 10/10/2018 DAISY, LEANNA E RETAIL BUSINESS MANAGER Ot Z72.0 TOBACCO USE 10/22/2018 DAISY, LEANNA E RETAIL BUSINESS MANAGER Ot E66.09 OTHER OBESITY DUE TO EXCESS CALORIES 10/22/2018 DAISY, LEANNA E RETAIL BUSINESS MANAGER Ot G47.10 HYPERSOMNIA, UNSPECIFIED 10/22/2018 DAISY, LEANNA E RETAIL BUSINESS MANAGER Ot G47.33 OBSTRUCTIVE SLEEP APNEA (ADULT) (PEDIATR 10/22/2018 YA VILLAINE E RETAIL BUSINESS MANAGER Ot G47.50 PARASOMNIA, UNSPECIFIED 10/22/2018 YA VILLAINE E RETAIL BUSINESS MANAGER Ot J44.9 CHRONIC OBSTRUCTIVE PULMONARY DISEASE, U 10/22/2018 DAISY, LEANNA E RETAIL BUSINESS MANAGER Ot R91.1 SOLITARY PULMONARY NODULE 10/22/2018 DAISY, LEANNA E RETAIL BUSINESS MANAGER Ot Z72.0 TOBACCO USE 10/28/2018 DAISY, LEANNA E RETAIL BUSINESS MANAGER Ot E66.09 OTHER OBESITY DUE TO EXCESS CALORIES 10/28/2018 DAISY, LEANNA E RETAIL BUSINESS MANAGER Ot G47.10 HYPERSOMNIA, UNSPECIFIED 10/28/2018 DAISY, LEANNA E RETAIL BUSINESS MANAGER Ot G47.33 OBSTRUCTIVE SLEEP APNEA (ADULT) (PEDIATR 10/28/2018 DAISY, LEANNA E RETAIL BUSINESS MANAGER Ot G47.50 PARASOMNIA, UNSPECIFIED 10/28/2018 DAISY, LEANNA E RETAIL BUSINESS MANAGER Ot J44.9 CHRONIC OBSTRUCTIVE PULMONARY DISEASE, U 10/28/2018 DAISY, LEANNA E RETAIL BUSINESS MANAGER Ot R91.1 SOLITARY PULMONARY NODULE 10/28/2018 DAISY, LEANNA E RETAIL BUSINESS MANAGER Ot Z72.0 TOBACCO USE 10/29/2018 DAISY, LEANNA E RETAIL BUSINESS MANAGER Ot E66.9 OBESITY, UNSPECIFIED 10/29/2018 DAISY, LEANNA E RETAIL BUSINESS MANAGER Ot G47.10 HYPERSOMNIA, UNSPECIFIED 10/29/2018 DAISY, LEANNA E RETAIL BUSINESS MANAGER Ot G47.33 OBSTRUCTIVE SLEEP APNEA (ADULT) (PEDIATR 10/29/2018 LEANNA VILLA RETAIL BUSINESS MANAGER Ot G47.50 PARASOMNIA, UNSPECIFIED 10/29/2018 LEANNA VILLA RETAIL BUSINESS MANAGER Ot J44.9 CHRONIC OBSTRUCTIVE PULMONARY DISEASE, U 10/29/2018 DAISY, LEANNA E RETAIL BUSINESS MANAGER Ot R06.02 SHORTNESS OF BREATH 10/29/2018 LEANNA VILLA E RETAIL BUSINESS MANAGER Ot Z68.42 BODY MASS INDEX (BMI) 45.0-49.9, ADULT 10/29/2018 LEANNA VILLA RETAIL BUSINESS MANAGER Ot Z72.0 TOBACCO USE 10/29/2018 LEANNA VILLA RETAIL BUSINESS MANAGER Ot E66.9 OBESITY, UNSPECIFIED 10/29/2018 DAISY, LEANNA E RETAIL BUSINESS MANAGER Ot G47.10 HYPERSOMNIA, UNSPECIFIED 10/29/2018 DAISY, LEANNA E RETAIL BUSINESS MANAGER Ot G47.33 OBSTRUCTIVE SLEEP APNEA (ADULT) (PEDIATR 10/29/2018 YA VILLAINE E RETAIL BUSINESS MANAGER Ot G47.50 PARASOMNIA, UNSPECIFIED 10/29/2018 DAISY, LEANNA E RETAIL BUSINESS MANAGER Ot J44.9 CHRONIC OBSTRUCTIVE PULMONARY DISEASE, U 10/29/2018 YA VILLAINE E RETAIL BUSINESS MANAGER Ot R06.02 SHORTNESS OF BREATH 10/29/2018 DAISY, LEANNA E RETAIL BUSINESS MANAGER Ot Z68.42 BODY MASS INDEX (BMI) 45.0-49.9, ADULT 10/29/2018 YA VILLAINE E RETAIL BUSINESS MANAGER Ot Z72.0 TOBACCO USE 11/06/2018 YA VILLAINE E RETAIL BUSINESS MANAGER Ot E66.9 OBESITY, UNSPECIFIED 11/06/2018 DAISY, LEANNA E RETAIL BUSINESS MANAGER Ot G47.10 HYPERSOMNIA, UNSPECIFIED 11/06/2018 DAISY, LEANNA E RETAIL BUSINESS MANAGER Ot G47.33 OBSTRUCTIVE SLEEP APNEA (ADULT) (PEDIATR 11/06/2018 DAISY, LEANNA E RETAIL BUSINESS MANAGER Ot G47.50 PARASOMNIA, UNSPECIFIED 11/06/2018 DAISY, LEANNA E RETAIL BUSINESS MANAGER Ot J44.9 CHRONIC OBSTRUCTIVE PULMONARY DISEASE, U 11/06/2018 DAISY, LEANNA E RETAIL BUSINESS MANAGER Ot R06.02 SHORTNESS OF BREATH 11/06/2018 DAISY, LEANNA E RETAIL BUSINESS MANAGER Ot Z68.42 BODY MASS INDEX (BMI) 45.0-49.9, ADULT 11/06/2018 DAISY, LEANNA E RETAIL BUSINESS MANAGER Ot Z72.0 TOBACCO USE 11/07/2018 DAISY, LEANNA E RETAIL BUSINESS MANAGER Ot E66.9 OBESITY, UNSPECIFIED 11/07/2018 DAISY, LEANNA E RETAIL BUSINESS MANAGER Ot G47.10 HYPERSOMNIA, UNSPECIFIED 11/07/2018 DAISY, LEANNA E RETAIL BUSINESS MANAGER Ot G47.33 OBSTRUCTIVE SLEEP APNEA (ADULT) (PEDIATR 11/07/2018 DAISY, LEANNA E RETAIL BUSINESS MANAGER Ot G47.50 PARASOMNIA, UNSPECIFIED 11/07/2018 DAISY, LEANNA E RETAIL BUSINESS MANAGER Ot J44.9 CHRONIC OBSTRUCTIVE PULMONARY DISEASE, U 11/07/2018 DAISY, LEANNA E RETAIL BUSINESS MANAGER Ot R06.02 SHORTNESS OF BREATH 11/07/2018 DAISY, LEANNA E RETAIL BUSINESS MANAGER Ot Z68.42 BODY MASS INDEX (BMI) 45.0-49.9, ADULT 11/07/2018 DAISY, LEANNA E RETAIL BUSINESS MANAGER Ot Z72.0 TOBACCO USE 11/15/2018 DAISY, LEANNA E RETAIL BUSINESS MANAGER Ot E66.9 OBESITY, UNSPECIFIED 11/15/2018 DAISY, LEANNA E RETAIL BUSINESS MANAGER Ot G47.10 HYPERSOMNIA, UNSPECIFIED 11/15/2018 DAISY, LEANNA E RETAIL BUSINESS MANAGER Ot G47.33 OBSTRUCTIVE SLEEP APNEA (ADULT) (PEDIATR 11/15/2018 DAISY, LEANNA E RETAIL BUSINESS MANAGER Ot G47.50 PARASOMNIA, UNSPECIFIED 11/15/2018 DAISY, LEANNA E RETAIL BUSINESS MANAGER Ot J44.9 CHRONIC OBSTRUCTIVE PULMONARY DISEASE, U 11/15/2018 DAISY, LEANNA E RETAIL BUSINESS MANAGER Ot R06.02 SHORTNESS OF BREATH 11/15/2018 DAISY, LEANNA E RETAIL BUSINESS MANAGER Ot Z68.42 BODY MASS INDEX (BMI) 45.0-49.9, ADULT 11/15/2018 LEANNA VILLA RETAIL BUSINESS MANAGER Ot Z72.0 TOBACCO USE 11/24/2018 LEANNA VILLA RETAIL BUSINESS MANAGER Ot E66.9 OBESITY, UNSPECIFIED 11/24/2018 LEANNA VILLA RETAIL BUSINESS MANAGER Ot G47.10 HYPERSOMNIA, UNSPECIFIED 11/24/2018 LEANNA VILLA RETAIL BUSINESS MANAGER Ot G47.33 OBSTRUCTIVE SLEEP APNEA (ADULT) (PEDIATR 11/24/2018 DAISYYA CHAIREZINE E RETAIL BUSINESS MANAGER Ot G47.50 PARASOMNIA, UNSPECIFIED 11/24/2018 LEANNA VILLA RETAIL BUSINESS MANAGER Ot J44.9 CHRONIC OBSTRUCTIVE PULMONARY DISEASE, U 11/24/2018 LEANNA VILLA RETAIL BUSINESS MANAGER Ot R06.02 SHORTNESS OF BREATH 11/24/2018 LEANNA VILLA RETAIL BUSINESS MANAGER Ot Z68.42 BODY MASS INDEX (BMI) 45.0-49.9, ADULT 11/24/2018 LEANNA VILLA RETAIL BUSINESS MANAGER Ot Z72.0 TOBACCO USE 11/28/2018 RASHEED RAHMAN Ot V76.12 OTH SCREEN MAMMO-MALIGN NEOPLASM OF SAMANTHA 11/28/2018 SAMEERA ESCOTO, JAMIE Ot V72.84 EXAM PRE-OPERATIVE NOS 11/28/2018 NESS ESCOTO, SOSA Shelby Ot 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 PATELLAE 11/28/2018 SOSA GUSMAN MD Ot V72.84 EXAM PRE-OPERATIVE NOS 11/28/2018 SOSA GUSMAN MD Ot V74.8 SCREEN-BACTERIAL DIS NEC 11/28/2018 SOSA GUSMAN MD Ot 727.61 ROTATOR CUFF RUPTURE 11/28/2018 RYAN JONES MD Ot 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 11/28/2018 RYAN JONES MD Ot 788.3 0 UNSPECIFIED URINARY INCONTINENCE 11/28/2018 RYAN JONES MD Ot V72.8 4 EXAM PRE-OPERATIVE NOS 11/28/2018 RYAN JONES MD Ot V74.8 SCREEN-BACTERIAL DIS NEC 11/28/2018 MORAIMA NOEL DO Ot 719.46 JOINT PAIN-L/LEG 11/28/2018 MORAIMA NOEL DO Ot 724.2 LUMBAGO 11/28/2018 BERT HDEZ, MORAIMA Moeller Ot 959.7 LOWER LEG INJURY NOS 11/28/2018 MORAIMA NOEL DO Ot E000.8 OTHER EXTERNAL CAUSE STATUS 11/28/2018 MORAIMA NOEL DO Ot E849.0 ACCIDENT IN HOME 11/28/2018 MORAIMA NOEL DO Ot E888.9 FALL NOS 11/28/2018 MORIAMA NOEL DO Ot 789.01 ABDOMINAL PAIN, RIGHT UPPER QUADRANT 11/28/2018 MORAIMA NOEL DO Ot 575.8 DIS OF GALLBLADDER NEC 11/28/2018 RUFINA ESCOTO, NARAYAN Marr Ot 575.8 DIS OF GALLBLADDER NEC 11/28/2018 RUFINA ESCOTO, NARAYAN Marr Ot V72.63 PRE-PROCEDURAL LABORATORY EXAMINATION 11/28/2018 RUFINA ESCOTO, NARAYAN Marr Ot V72.81 TRGI-[id number] CARDIOVASCULAR 11/28/2018 RUFINA ESCOTO, NARAYAN Marr Ot V74.8 SCREEN-BACTERIAL DIS NEC 11/28/2018 NESS ESCOTO, SOSA Shelby Ot 715.31 LOC OSTEOARTH NOS-SHLDER 11/28/2018 NESS ESCOTO, SOSA Shelby Ot 727.61 ROTATOR CUFF RUPTURE 11/28/2018 NESS ESCOTO, SOSA Shelby Ot 840.7 (SLAP) SUPERIOR GLENOID LABRUM LESIONS 11/28/2018 NESS ESCOTO, SOSA Shelby Ot V72.83 EXAM PRE-OPERATIVE NEC 11/28/2018 Ot G56.02 CAR PAL TUNNEL SYNDROME, LEFT UPPER LIMB 11/28/2018 Ot Z01.818 EN COUNTER FOR OTHER PREPROCEDURAL EXAMIN 11/28/2018 Ot Z11.2 ENCO UNTER FOR SCREENING FOR OTHER BACTER 11/28/2018 RASHEED RAHMAN Ot Z12.31 ENCNTR SCREEN MAMMOGRAM FOR MALIGNANT NE 11/28/2018 MORAIMA NOEL DO Ot Z13.89 ENCOUNTER FOR SCREENING FOR OTHER DISORD 11/28/2018 NESS ESCOTO, SOSA Shelby Ot G56.01 CARPAL TUNNEL SYNDROME, RIGHT UPPER LIMB 11/28/2018 SOSA GUSMAN MD Ot Z01.818 ENCOUNTER FOR OTHER PREPROCEDURAL EXAMIN 11/28/2018 MORAIMA NOEL DO Ot J40 BRONCHITIS, NOT SPECIFIED ACUTE OR CH 11/28/2018 MORAIMA NOEL DO Ot J44.9 CHRONIC OBSTRUCTIVE PULMONARY DISEASE, U 11/28/2018 MORAIMA NOEL DO Ot N39.0 URINARY TRACT INFECTION, SITE NOT SPECIF 11/28/2018 DINO TILLMAN ASSOCIATE OF SCIENCE IN NURSING Ot R22. 31 LOCALIZED SWELLING, MASS AND LUMP, RIGHT 11/28/2018 JOSIAHRASHEED PETER ASSOCIATE OF SCIENCE IN NURSING Ot Z12.31 ENCNTR SCREEN MAMMOGRAM FOR MALIGNANT NE 11/28/2018 NESS ESCOTO, SOSA Shelby Ot M75.121 COMPLETE ROTATR-CUFF TEAR/RUPTR OF R JOSSY 11/28/2018 MEDARDO DUFFY MD Ot Z51. 81 ENCOUNTER FOR THERAPEUTIC DRUG LEVEL MON 11/28/2018 MEDARDO DUFFY MD Ot Z79.899 OTHER SKILLED NURSING (CURRENT) DRUG THERAPY 11/28/2018 MEDARDO DUFFY MD Ot Z12. 31 ENCNTR SCREEN MAMMOGRAM FOR MALIGNANT NE 11/28/2018 PAMELA ESCOTO, JEN Zhong Ot M25.81 1 OTHER SPECIFIED JOINT DISORDERS, RIGHT S 11/28/2018 [...] OF TOBACCO CIGARETTES, SELF 11/28/2018 COURTNEY HONG ASSOCIATE OF SCIENCE IN NURSING Ot E78.4 OTHER HYPERLIPIDEMIA 11/28/2018 COURTNEY HONG ASSOCIATE OF SCIENCE IN NURSING Ot F17.200 NICOTINE DEPENDENCE, UNSPECIFIED, UNCOMP 11/28/2018 BAIMA, COURTNEY L ASSOCIATE OF SCIENCE IN NURSING Ot I 10 ESSENTIAL (PRIMARY) HYPERTENSION 11/28/2018 BAIMA, COURTNEY L ASSOCIATE OF SCIENCE IN NURSING Ot 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 11/28/2018 BAIMA, CORUTNEY L ASSOCIATE OF SCIENCE IN NURSING Ot E78.2 MIXED HYPERLIPIDEMIA 11/28/2018 BAIMA, COURTNEY L ASSOCIATE OF SCIENCE IN NURSING Ot I 10 ESSENTIAL (PRIMARY) HYPERTENSION 11/28/2018 BAIMA, COURTNEY L ASSOCIATE OF SCIENCE IN NURSING Ot I65.23 OCCLUSION AND STENOSIS OF BILATERAL [place] 11/28/2018 BAIMA, COURTNEY L ASSOCIATE OF SCIENCE IN NURSING Ot 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 11/28/2018 BAIMA, COURTNEY L ASSOCIATE OF SCIENCE IN NURSING Ot R06.00 DYSPNEA, UNSPECIFIED 11/28/2018 BAIMA, COURTNEY L ASSOCIATE OF SCIENCE IN NURSING Ot R60.0 LOCALIZED EDEMA 11/28/2018 BAIMA, COURTNEY L ASSOCIATE OF SCIENCE IN NURSING Ot E78.2 MIXED HYPERLIPIDEMIA 11/28/2018 BAIMA, COURTNEY L ASSOCIATE OF SCIENCE IN NURSING Ot I 10 ESSENTIAL (PRIMARY) HYPERTENSION 11/28/2018 BAIMA, COURTNEY L ASSOCIATE OF SCIENCE IN NURSING Ot I65.23 OCCLUSION AND STENOSIS OF BILATERAL [place] 11/28/2018 BAIMA, COURTNEY L ASSOCIATE OF SCIENCE IN NURSING Ot 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 W [facility] 11/28/2018 BAIMA, COURTNEY L ASSOCIATE OF SCIENCE IN NURSING Ot R06.09 OTHER FORMS OF DYSPNEA 11/28/2018 BAIMA, COURTNEY L ASSOCIATE OF SCIENCE IN NURSING Ot R60.0 LOCALIZED EDEMA 11/28/2018 SAKINA PARRA RETAIL BUSINESS MANAGER Ot Z12.31 ENCNTR SCREEN MAMMOGRAM FOR MALIGNANT NE 11/28/2018 LEANNA VILLA APRN Ot E66.09 OTHER OBESITY DUE TO EXCESS CALORIES 11/28/2018 LEANNA VILLA APRN Ot G47.50 PARASOMNIA, UNSPECIFIED 11/28/2018 LEANNA VILLA APRN Ot J44.9 CHRONIC OBSTRUCTIVE PULMONARY DISEASE, U 11/28/2018 LEANNA VILLA APRN Ot R29.818 OTHER SYMPTOMS AND SIGNS INVOLVING THE N 11/28/2018 LEANNA VILLA APRN Ot R91.8 OTHER NONSPECIFIC ABNORMAL FINDING OF LISA 11/28/2018 LEANNA VILLA APRN Ot Z72.0 TOBACCO USE 11/28/2018 DAISY, LEANNA E RETAIL BUSINESS MANAGER Ot E66.09 OTHER OBESITY DUE TO EXCESS CALORIES 11/28/2018 LEANNA VILLA RETAIL BUSINESS MANAGER Ot G47.10 HYPERSOMNIA, UNSPECIFIED 11/28/2018 LEANNA VILLA RETAIL BUSINESS MANAGER Ot G47.50 PARASOMNIA, UNSPECIFIED 11/28/2018 LEANNA VILLA RETAIL BUSINESS MANAGER Ot J43.8 OTHER EMPHYSEMA 11/28/2018 LEANNA VILLA RETAIL BUSINESS MANAGER Ot R06.02 SHORTNESS OF BREATH 11/28/2018 LEANNA VILLA RETAIL BUSINESS MANAGER Ot Z72.0 TOBACCO USE 11/28/2018 Ot E66.9 OBES ITY, UNSPECIFIED 11/28/2018 Ot G47.10 HYP ERSOMNIA, UNSPECIFIED 11/28/2018 Ot G47.33 OBS TRUCTIVE SLEEP APNEA (ADULT) (PEDIATR 11/28/2018 Ot G47.50 PAR ASOMNIA, UNSPECIFIED 11/28/2018 Ot 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 OBSTRUCTIVE PULMONARY DISEASE, U 11/28/2018 Ot R06.02 JOSSY RTNESS OF BREATH 11/28/2018 Ot Z68.42 BOD Y MASS INDEX (BMI) 45.0-49.9, ADULT 11/28/2018 Ot Z72.0 TOBA INDUSTRIAL SWEEPER CLEANER USE 11/28/2018 LEANNA VILLA RETAIL BUSINESS MANAGER Ot E66.09 OTHER OBESITY DUE TO EXCESS CALORIES 11/28/2018 LEANNA VILLA RETAIL BUSINESS MANAGER Ot G47.10 HYPERSOMNIA, UNSPECIFIED 11/28/2018 LEANNA VILLA RETAIL BUSINESS MANAGER Ot G47.33 OBSTRUCTIVE SLEEP APNEA (ADULT) (PEDIATR 11/28/2018 LEANNA VILLA RETAIL BUSINESS MANAGER Ot G47.50 PARASOMNIA, UNSPECIFIED 11/28/2018 LEANNA VILLA RETAIL BUSINESS MANAGER Ot J44.9 CHRONIC OBSTRUCTIVE PULMONARY DISEASE, U 11/28/2018 LEANNA VILLA RETAIL BUSINESS MANAGER Ot R91.1 SOLITARY PULMONARY NODULE 11/28/2018 LEANNA VILLA RETAIL BUSINESS MANAGER Ot Z72.0 TOBACCO USE 11/28/2018 LEANNA VILLA RETAIL BUSINESS MANAGER Ot E66.9 OBESITY, UNSPECIFIED 11/28/2018 LEANNA VILLA RETAIL BUSINESS MANAGER Ot G47.10 HYPERSOMNIA, UNSPECIFIED 11/28/2018 LEANNA VILLA RETAIL BUSINESS MANAGER Ot G47.33 OBSTRUCTIVE SLEEP APNEA (ADULT) (PEDIATR 11/28/2018 DAISY, LEANNA E RETAIL BUSINESS MANAGER Ot G47.50 PARASOMNIA, UNSPECIFIED 11/28/2018 DAISY, LEANNA E RETAIL BUSINESS MANAGER Ot J44.9 CHRONIC OBSTRUCTIVE PULMONARY DISEASE, U 11/28/2018 LEANNA VILLA RETAIL BUSINESS MANAGER Ot R06.02 SHORTNESS OF BREATH 11/28/2018 LEANNA VILLA RETAIL BUSINESS MANAGER Ot Z68.42 BODY MASS INDEX (BMI) 45.0-49.9, ADULT 11/28/2018 YA VILLAINE E RETAIL BUSINESS MANAGER Ot Z72.0 TOBACCO USE 11/28/2018 DAISY, LEANNA E RETAIL BUSINESS MANAGER Ot E66.09 OTHER OBESITY DUE TO EXCESS CALORIES 11/28/2018 DAISY LEANNA E RETAIL BUSINESS MANAGER Ot G47.10 HYPERSOMNIA, UNSPECIFIED 11/28/2018 DAISY, LEANNA E RETAIL BUSINESS MANAGER Ot G47.33 OBSTRUCTIVE SLEEP APNEA (ADULT) (PEDIATR 11/28/2018 YA VILLAINE E RETAIL BUSINESS MANAGER Ot G47.50 PARASOMNIA, UNSPECIFIED 11/28/2018 YA VILLAINE E RETAIL BUSINESS MANAGER Ot J44.9 CHRONIC OBSTRUCTIVE PULMONARY DISEASE, U 11/28/2018 YA VILLAINE E RETAIL BUSINESS MANAGER Ot R91.1 SOLITARY PULMONARY NODULE 11/28/2018 YA VILLAINE E RETAIL BUSINESS MANAGER Ot Z72.0 TOBACCO USE 11/28/2018 DAISY, LEANNA E RETAIL BUSINESS MANAGER Ot E66.09 OTHER OBESITY DUE TO EXCESS CALORIES 11/28/2018 YA VILLAINE E RETAIL BUSINESS MANAGER Ot G47.10 HYPERSOMNIA, UNSPECIFIED 11/28/2018 YA VILLAINE E RETAIL BUSINESS MANAGER Ot G47.33 OBSTRUCTIVE SLEEP APNEA (ADULT) (PEDIATR 11/28/2018 YA VILLAINE E RETAIL BUSINESS MANAGER Ot G47.50 PARASOMNIA, UNSPECIFIED 11/28/2018 LEANNA VILLA RETAIL BUSINESS MANAGER Ot J44.9 CHRONIC OBSTRUCTIVE PULMONARY DISEASE, U 11/28/2018 DAISY, LEANNA E RETAIL BUSINESS MANAGER Ot R91.1 SOLITARY PULMONARY NODULE 11/28/2018 YA VILLAINE E RETAIL BUSINESS MANAGER Ot Z72.0 TOBACCO USE 11/28/2018 DAISY, LEANNA E RETAIL BUSINESS MANAGER Ot E66.09 OTHER OBESITY DUE TO EXCESS CALORIES 11/28/2018 YA VILLAINE E RETAIL BUSINESS MANAGER Ot G47.10 HYPERSOMNIA, UNSPECIFIED 11/28/2018 YA VILLAINE E RETAIL BUSINESS MANAGER Ot G47.33 OBSTRUCTIVE SLEEP APNEA (ADULT) (PEDIATR 11/28/2018 LEANNA VILLA RETAIL BUSINESS MANAGER Ot G47.50 PARASOMNIA, UNSPECIFIED 11/28/2018 YA VILLAINE E RETAIL BUSINESS MANAGER Ot J44.9 CHRONIC OBSTRUCTIVE PULMONARY DISEASE, U 11/28/2018 YA VILLAINE E RETAIL BUSINESS MANAGER Ot R91.1 SOLITARY PULMONARY NODULE 11/28/2018 YA VILLAINE E RETAIL BUSINESS MANAGER Ot Z72.0 TOBACCO USE 11/29/2018 THOMAS JENNINGS ASSOCIATE OF SCIENCE IN NURSING Ot K44.9 DIAPHRAGMATIC HERNIA WITHOUT OBSTRUCTION 11/30/2018 YA VILLAINE E RETAIL BUSINESS MANAGER Ot E66.9 OBESITY, UNSPECIFIED 11/30/2018 YA VILLAINE E RETAIL BUSINESS MANAGER Ot G47.10 HYPERSOMNIA, UNSPECIFIED 11/30/2018 LEANNA VILLA RETAIL BUSINESS MANAGER Ot G47.33 OBSTRUCTIVE SLEEP APNEA (ADULT) (PEDIATR 11/30/2018 LEANNA VILLA RETAIL BUSINESS MANAGER Ot G47.50 PARASOMNIA, UNSPECIFIED 11/30/2018 LEANNA VILLA RETAIL BUSINESS MANAGER Ot J44.9 CHRONIC OBSTRUCTIVE PULMONARY DISEASE, U 11/30/2018 LEANNA VILLA E RETAIL BUSINESS MANAGER Ot R06.02 SHORTNESS OF BREATH 11/30/2018 LEANNA VILLA E RETAIL BUSINESS MANAGER Ot Z68.42 BODY MASS INDEX (BMI) 45.0-49.9, ADULT 11/30/2018 LEANNA VILLA RETAIL BUSINESS MANAGER Ot Z72.0 TOBACCO USE 12/04/2018 THOMAS JENNINGS ASSOCIATE OF SCIENCE IN NURSING Ot K44.9 DIAPHRAGMATIC HERNIA WITHOUT OBSTRUCTION 01/03/2019 THOMAS JENNINGS ASSOCIATE OF SCIENCE IN NURSING Ot K44.9 DIAPHRAGMATIC HERNIA WITHOUT OBSTRUCTION 01/13/2019 LEANNA VILLA RETAIL BUSINESS MANAGER Ot E66.9 OBESITY, UNSPECIFIED 01/13/2019 LEANNA VILLA RETAIL BUSINESS MANAGER Ot G47.10 HYPERSOMNIA, UNSPECIFIED 01/13/2019 LEANNA VILLA RETAIL BUSINESS MANAGER Ot G47.33 OBSTRUCTIVE SLEEP APNEA (ADULT) (PEDIATR 01/13/2019 LEANNA VILLA RETAIL BUSINESS MANAGER Ot G47.50 PARASOMNIA, UNSPECIFIED 01/13/2019 LEANNA VILLA RETAIL BUSINESS MANAGER Ot J44.9 CHRONIC OBSTRUCTIVE PULMONARY DISEASE, U 01/13/2019 LEANNA VILLA RETAIL BUSINESS MANAGER Ot R06.02 SHORTNESS OF BREATH 01/13/2019 LEANNA VILLA RETAIL BUSINESS MANAGER Ot Z68.42 BODY MASS INDEX (BMI) 45.0-49.9, ADULT 01/13/2019 LEANNA VILLA RETAIL BUSINESS MANAGER Ot Z72.0 TOBACCO USE 01/13/2019 LEANNA VILLA RETAIL BUSINESS MANAGER Ot E66.09 OTHER OBESITY DUE TO EXCESS CALORIES 01/13/2019 LEANNA VILLA RETAIL BUSINESS MANAGER Ot G47.10 HYPERSOMNIA, UNSPECIFIED 01/13/2019 LEANNA VILLA RETAIL BUSINESS MANAGER Ot G47.33 OBSTRUCTIVE SLEEP APNEA (ADULT) (PEDIATR 01/13/2019 LEANNA VILLA RETAIL BUSINESS MANAGER Ot G47.50 PARASOMNIA, UNSPECIFIED 01/13/2019 LEANNA VILLA RETAIL BUSINESS MANAGER Ot J44.9 CHRONIC OBSTRUCTIVE PULMONARY DISEASE, U 01/13/2019 LEANNA VILLA RETAIL BUSINESS MANAGER Ot R91.1 SOLITARY PULMONARY NODULE 01/13/2019 LEANNA VILLA RETAIL BUSINESS MANAGER Ot Z72.0 TOBACCO USE 01/14/2019 YAMILET SEGAL MD Ot E66.9 OBESITY, UNSPECIFIED 01/14/2019 YAMILET SEGAL MD Ot E78.0 0 PURE HYPERCHOLESTEROLEMIA, UNSPECIFIED 01/14/2019 YAMILET SEGAL MD Ot F17.2 10 NICOTINE DEPENDENCE, CIGARETTES, UNCOMPL 01/14/2019 YAMILET SEGAL MD Ot F41.9 ANXIETY DISORDER, UNSPECIFIED 01/14/2019 YAMILET SEGAL MD Ot G47.3 0 SLEEP APNEA, UNSPECIFIED 01/14/2019 YAMILET SEGAL MD Ot I10 ESSENTIAL (PRIMARY) HYPERTENSION 01/14/2019 YAMILET SEGAL MD Ot J18.1 LOBAR PNEUMONIA, UNSPECIFIED ORGANISM 01/14/2019 YAMILET SEGAL MD Ot 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 01/14/2019 YAMILET SEGAL MD Ot J44.0 CHRONIC OBSTRUCTIVE PULMON DISEASE W ACU 01/14/2019 YAMILET SEGAL MD, Ot K21.9 GASTRO-ESOPHAGEAL REFLUX DISEASE WITHOUT 01/14/2019 YAMILET SEGAL MD Ot L40.9 PSORIASIS, UNSPECIFIED 01/14/2019 YAMILET SEGAL MD Ot M19.9 1 PRIMARY OSTEOARTHRITIS, UNSPECIFIED SITE 01/14/2019 YAMILET SEGAL MD Ot M54.9 DORSALGIA, UNSPECIFIED 01/14/2019 YAMILET SEGAL MD, Ot N31.9 NEUROMUSCULAR DYSFUNCTION OF BLADDER, UN 01/14/2019 YAMILET SEGAL MD, Ot R04.2 HEMOPTYSIS 01/14/2019 YAMILET SGEAL MD, Ot Z68.4 3 BODY MASS INDEX (BMI) 50-59.9, ADULT 01/14/2019 YAMILET SEGAL MD, Ot Z96.6 51 PRESENCE OF RIGHT ARTIFICIAL KNEE JOINT 01/14/2019 YAMILET SEGAL MD, Ot Z99.8 1 DEPENDENCE ON SUPPLEMENTAL OXYGEN 01/15/2019 YAMILET SEGAL MD, Ot E66.9 OBESITY, UNSPECIFIED 01/15/2019 YAMILET SEGAL MD, Ot E78.0 0 PURE HYPERCHOLESTEROLEMIA, UNSPECIFIED 01/15/2019 YAMILET SEGAL MD, Ot F17.2 10 NICOTINE DEPENDENCE, CIGARETTES, UNCOMPL 01/15/2019 YAMILET SEGAL MD, Ot F41.9 ANXIETY DISORDER, UNSPECIFIED 01/15/2019 YAMILET SEGAL MD, Ot G47.3 0 SLEEP APNEA, UNSPECIFIED 01/15/2019 YAMILET SEGAL MD, Ot I10 ESSENTIAL (PRIMARY) HYPERTENSION 01/15/2019 YAMILET SEGAL MD, Ot J18.1 LOBAR PNEUMONIA, UNSPECIFIED ORGANISM 01/15/2019 YAMILET SEGAL MD, Ot 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 01/15/2019 YAMILET SEGAL MD, Ot J44.0 CHRONIC OBSTRUCTIVE PULMON DISEASE W ACU 01/15/2019 YAMILET SEGAL MD, Ot J96.2 1 ACUTE AND CHRONIC RESPIRATORY FAILURE [place] 01/15/2019 YAMILET SEGAL MD, Ot K21.9 GASTRO-ESOPHAGEAL REFLUX DISEASE WITHOUT 01/15/2019 YAMILET SEGAL MD, Ot L40.9 PSORIASIS, UNSPECIFIED 01/15/2019 YAMILET SEGAL MD, Ot M19.9 1 PRIMARY OSTEOARTHRITIS, UNSPECIFIED SITE 01/15/2019 YAMILET SEGAL MD, Ot M54.9 DORSALGIA, UNSPECIFIED 01/15/2019 YAMILET SEGAL MD, Ot N31.9 NEUROMUSCULAR DYSFUNCTION OF BLADDER, UN 01/15/2019 YAMILET SEGAL MD, Ot R04.2 HEMOPTYSIS 01/15/2019 GAULT MD, YAMILET R Ot Z68.4 3 BODY MASS INDEX (BMI) 50-59.9, ADULT 01/15/2019 YAMILET SEGAL MD Ot Z96.6 51 PRESENCE OF RIGHT ARTIFICIAL KNEE JOINT 01/15/2019 YAMILET SEGAL MD Ot Z99.8 1 DEPENDENCE ON SUPPLEMENTAL OXYGEN 02/03/2019 RASHEED RAHMAN Ot V76.12 OTH SCREEN MAMMO-MALIGN NEOPLASM OF SAMANTHA 02/03/2019 SAMEERA ESCOTO, JAMIE Ot V72.84 EXAM PRE-OPERATIVE NOS 02/03/2019 NESS ESCOTO, SOSA Shelby Ot 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 PATELLAE 02/03/2019 SOSA GUSMAN MD Ot V72.84 EXAM PRE-OPERATIVE NOS 02/03/2019 NESS ESCOTO, SOSA Shelby Ot V74.8 SCREEN-BACTERIAL DIS NEC 02/03/2019 SOSA GUSMAN MD Ot 727.61 ROTATOR CUFF RUPTURE 02/03/2019 RYAN JONES MD Ot 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 02/03/2019 RYAN JONES MD Ot 788.3 0 UNSPECIFIED URINARY INCONTINENCE 02/03/2019 RYAN JONES MD Ot V72.8 4 EXAM PRE-OPERATIVE NOS 02/03/2019 KAREN ESCOTO, RYAN Moeller Ot V74.8 SCREEN-BACTERIAL DIS NEC 02/03/2019 MAXIMUSDER DOMORAIMA Ot 719.46 JOINT PAIN-L/LEG 02/03/2019 MORAIMA NOEL DO Ot 724.2 LUMBAGO 02/03/2019 BERT DOMORAIMA Ot 959.7 LOWER LEG INJURY NOS 02/03/2019 MAXIMUSDER DOMORAIMA Ot E000.8 OTHER EXTERNAL CAUSE STATUS 02/03/2019 MAXIMUSDER DOMORAIMA Ot E849.0 ACCIDENT IN HOME 02/03/2019 MORAIMA NOEL DO Ot E888.9 FALL NOS 02/03/2019 MORAIMA NOEL DO Ot 789.01 ABDOMINAL PAIN, RIGHT UPPER QUADRANT 02/03/2019 MORAIMA NOEL DO Ot 575.8 DIS OF GALLBLADDER NEC 02/03/2019 RUFINA ESCOTO, NARAYAN Marr Ot 575.8 DIS OF GALLBLADDER NEC 02/03/2019 RUFINA ESCOTO, NARAYAN Marr Ot V72.63 PRE-PROCEDURAL LABORATORY EXAMINATION 02/03/2019 RUFINA ESCOTO, NARAYAN Marr Ot V72.81 [id number] CARDIOVASCULAR 02/03/2019 RUFINA ESCOTO, NARAYAN Marr Ot V74.8 SCREEN-BACTERIAL DIS NEC 02/03/2019 NESS ESCOTO, SOSA Shelby Ot 715.31 LOC OSTEOARTH NOS-SHLDER 02/03/2019 SOSA GUSMAN MD Ot 727.61 ROTATOR CUFF RUPTURE 02/03/2019 SOSA GUSMAN MD Ot 840.7 (SLAP) SUPERIOR GLENOID LABRUM LESIONS 02/03/2019 SOSA GUSMAN MD Ot V72.83 EXAM PRE-OPERATIVE NEC 02/03/2019 Ot G56.02 CAR PAL TUNNEL SYNDROME, LEFT UPPER LIMB 02/03/2019 Ot Z01.818 EN COUNTER FOR OTHER PREPROCEDURAL EXAMIN 02/03/2019 Ot Z11.2 ENCO UNTER FOR SCREENING FOR OTHER BACTER 02/03/2019 RASHEED RAHMAN Ot Z12.31 ENCNTR SCREEN MAMMOGRAM FOR MALIGNANT NE 02/03/2019 MORAIMA NOEL DO Ot Z13.89 ENCOUNTER FOR SCREENING FOR OTHER DISORD 02/03/2019 SOSA GUSMAN MD Ot G56.01 CARPAL TUNNEL SYNDROME, RIGHT UPPER LIMB 02/03/2019 SOSA GUSMAN MD Ot Z01.818 ENCOUNTER FOR OTHER PREPROCEDURAL EXAMIN 02/03/2019 MORAIMA NOEL DO Ot J40 BRONCHITIS, NOT SPECIFIED ACUTE OR CH 02/03/2019 MORAIMA NOEL DO Ot J44.9 CHRONIC OBSTRUCTIVE PULMONARY DISEASE, U 02/03/2019 MORAIMA NOEL DO Ot N39.0 URINARY TRACT INFECTION, SITE NOT SPECIF 02/03/2019 DINO TLILMAN Ot R22. 31 LOCALIZED SWELLING, MASS AND LUMP, RIGHT 02/03/2019 RASHEED RAHMAN Ot Z12.31 ENCNTR SCREEN MAMMOGRAM FOR MALIGNANT NE 02/03/2019 SOSA GUSMAN MD Ot M75.121 COMPLETE ROTATR-CUFF TEAR/RUPTR OF R JOSSY 02/03/2019 MEDARDO DUFFY MD Ot Z51. 81 ENCOUNTER FOR THERAPEUTIC DRUG LEVEL MON 02/03/2019 MEDARDO DUFFY MD Ot Z79.899 OTHER BLENDER CONVEYOR OPERATOR (CURRENT) DRUG THERAPY 02/03/2019 CLIVE ESCOTO, MEDARDO Chowdhury Ot Z12. 31 ENCNTR SCREEN MAMMOGRAM FOR MALIGNANT NE 02/03/2019 PAMELA ESCOTO, JEN Zhong Ot M25.81 1 OTHER SPECIFIED JOINT DISORDERS, RIGHT S 02/03/2019 JOSEE ESCOTO FAC, ALI FACP CCDS Ot E78.4 OTHER HYPERLIPIDEMIA 02/03/2019 JOSEE ESCOTO FAC, ALI FACP CCDS Ot I10 ESSENTIAL (PRIMARY) HYPERTENSION 02/03/2019 JOSEE ESCOTO FAC, ALI FACP CCDS Ot J43.8 OTHER EMPHYSEMA 02/03/2019 JOSEE ESCOTO FAC, ALI FACP CCDS Ot R06.02 SHORTNESS OF BREATH 02/03/2019 JOSEE ESCOTO FAC, ALI FACP CCDS Ot Z72.0 TOBACCO USE 02/03/2019 SOSA RESENDIZ MD Ot 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 02/03/2019 SOSA REESNDIZ MD Ot T65.222D TOXIC EFFECT OF TOBACCO CIGARETTES, SELF 02/03/2019 SOSA RESENDIZ MD Ot 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 02/03/2019 SOSA RESENDIZ MD Ot T65.222D TOXIC EFFECT OF TOBACCO CIGARETTES, SELF 02/03/2019 BAIMA, COURTNEY L ASSOCIATE OF SCIENCE IN NURSING Ot E78.4 OTHER HYPERLIPIDEMIA 02/03/2019 BAIMA, COURTNEY L ASSOCIATE OF SCIENCE IN NURSING Ot F17.200 NICOTINE DEPENDENCE, UNSPECIFIED, UNCOMP 02/03/2019 BAIAJAY, COURTNEY L ASSOCIATE OF SCIENCE IN NURSING Ot I 10 ESSENTIAL (PRIMARY) HYPERTENSION 02/03/2019 BAIMA, COURTNEY L ASSOCIATE OF SCIENCE IN NURSING Ot 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 W INTRMT 02/03/2019 BAIMA, COURTNEY L ASSOCIATE OF SCIENCE IN NURSING Ot R06.00 DYSPNEA, UNSPECIFIED 02/03/2019 BAIMA, COURTNEY L ASSOCIATE OF SCIENCE IN NURSING Ot R60.0 LOCALIZED EDEMA 02/03/2019 COURTNEY HONG ASSOCIATE OF SCIENCE IN NURSING Ot E78.2 MIXED HYPERLIPIDEMIA 02/03/2019 COURTNEY HONG ASSOCIATE OF SCIENCE IN NURSING Ot I 10 ESSENTIAL (PRIMARY) HYPERTENSION 02/03/2019 COURTNEY HONG ASSOCIATE OF SCIENCE IN NURSING Ot I65.23 OCCLUSION AND STENOSIS OF BILATERAL [place] 02/03/2019 COURTNEY HONG ASSOCIATE OF SCIENCE IN NURSING Ot 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 02/03/2019 RUTHIECOURTNEY MOSS ASSOCIATE OF SCIENCE IN NURSING Ot R06.09 OTHER FORMS OF DYSPNEA 02/03/2019 COURTNEY HONG ASSOCIATE OF SCIENCE IN NURSING Ot R60.0 LOCALIZED EDEMA 02/03/2019 SAKINA PARRA APRN Ot Z12.31 ENCNTR SCREEN MAMMOGRAM FOR MALIGNANT NE 02/03/2019 LEANNA VILLA RETAIL BUSINESS MANAGER Ot E66.09 OTHER OBESITY DUE TO EXCESS CALORIES 02/03/2019 LEANNA VILLA RETAIL BUSINESS MANAGER Ot G47.50 PARASOMNIA, UNSPECIFIED 02/03/2019 LEANNA VILLA RETAIL BUSINESS MANAGER Ot J44.9 CHRONIC OBSTRUCTIVE PULMONARY DISEASE, U 02/03/2019 LEANNA VILLA RETAIL BUSINESS MANAGER Ot R29.818 OTHER SYMPTOMS AND SIGNS INVOLVING THE N 02/03/2019 LEANNA VILLA RETAIL BUSINESS MANAGER Ot R91.8 OTHER NONSPECIFIC ABNORMAL FINDING OF LISA 02/03/2019 LEANNA VILLA RETAIL BUSINESS MANAGER Ot Z72.0 TOBACCO USE 02/03/2019 LEANNA VILLA RETAIL BUSINESS MANAGER Ot E66.09 OTHER OBESITY DUE TO EXCESS CALORIES 02/03/2019 LEANNA VILLA RETAIL BUSINESS MANAGER Ot G47.10 HYPERSOMNIA, UNSPECIFIED 02/03/2019 LEANNA VILLA RETAIL BUSINESS MANAGER Ot G47.50 PARASOMNIA, UNSPECIFIED 02/03/2019 LEANNA VILLA RETAIL BUSINESS MANAGER Ot J43.8 OTHER EMPHYSEMA 02/03/2019 LEANNA VILLA RETAIL BUSINESS MANAGER Ot R06.02 SHORTNESS OF BREATH 02/03/2019 LEANNA VILLA APRN Ot Z72.0 TOBACCO USE 02/03/2019 Ot E66.9 OBES ITY, UNSPECIFIED 02/03/2019 Ot G47.10 HYP ERSOMNIA, UNSPECIFIED 02/03/2019 Ot G47.33 OBS TRUCTIVE SLEEP APNEA (ADULT) (PEDIATR 02/03/2019 Ot G47.50 PAR ASOMNIA, UNSPECIFIED 02/03/2019 Ot 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 OBSTRUCTIVE PULMONARY DISEASE, U 02/03/2019 Ot R06.02 JOSSY RTNESS OF BREATH 02/03/2019 Ot Z68.42 BOD Y MASS INDEX (BMI) 45.0-49.9, ADULT 02/03/2019 Ot Z72.0 TOBA INDUSTRIAL SWEEPER CLEANER USE 02/03/2019 LEANNA VILLA RETAIL BUSINESS MANAGER Ot E66.09 OTHER OBESITY DUE TO EXCESS CALORIES 02/03/2019 LEANNA VILLA RETAIL BUSINESS MANAGER Ot G47.10 HYPERSOMNIA, UNSPECIFIED 02/03/2019 LEANNA VILLA RETAIL BUSINESS MANAGER Ot G47.33 OBSTRUCTIVE SLEEP APNEA (ADULT) (PEDIATR 02/03/2019 LEANNA VILLA RETAIL BUSINESS MANAGER Ot G47.50 PARASOMNIA, UNSPECIFIED 02/03/2019 LEANNA VILLA RETAIL BUSINESS MANAGER Ot J44.9 CHRONIC OBSTRUCTIVE PULMONARY DISEASE, U 02/03/2019 LEANNA VILLA RETAIL BUSINESS MANAGER Ot R91.1 SOLITARY PULMONARY NODULE 02/03/2019 LEANNA VILLA RETAIL BUSINESS MANAGER Ot Z72.0 TOBACCO USE 02/03/2019 THOMAS JENNINGS Ot K44.9 DIAPHRAGMATIC HERNIA WITHOUT OBSTRUCTION 02/03/2019 LEANNA VILLA RETAIL BUSINESS MANAGER Ot E66.9 OBESITY, UNSPECIFIED 02/03/2019 LEANNA VILLA RETAIL BUSINESS MANAGER Ot G47.10 HYPERSOMNIA, UNSPECIFIED 02/03/2019 LEANNA VILLA RETAIL BUSINESS MANAGER Ot G47.33 OBSTRUCTIVE SLEEP APNEA (ADULT) (PEDIATR 02/03/2019 LEANNA VILLA RETAIL BUSINESS MANAGER Ot G47.50 PARASOMNIA, UNSPECIFIED 02/03/2019 LEANNA VILLA RETAIL BUSINESS MANAGER Ot J44.9 CHRONIC OBSTRUCTIVE PULMONARY DISEASE, U 02/03/2019 LEANNA VILLA RETAIL BUSINESS MANAGER Ot R06.02 SHORTNESS OF BREATH 02/03/2019 LEANNA VILLA RETAIL BUSINESS MANAGER Ot Z68.42 BODY MASS INDEX (BMI) 45.0-49.9, ADULT 02/03/2019 LEANNA VILLA RETAIL BUSINESS MANAGER Ot Z72.0 TOBACCO USE 02/03/2019 THOMAS JENNINGS Ot K44.9 DIAPHRAGMATIC HERNIA WITHOUT OBSTRUCTION 02/20/2019 CARL ESCOTO, SOSA Shelby Ot R07 .0 PAIN IN THROAT 02/20/2019 CARL ESCOTO, SOSA Shelby Ot R09.89 OT SYMPTOMS AND SIGNS INVOLVING THE CIR 2019 LEANNA VILLA APRN Ot E66.9 OBESITY, UNSPECIFIED 2019 LEANNA VILLA APRN Ot G47.10 HYPERSOMNIA, UNSPECIFIED 2019 LEANNA VILLA APRN Ot G47.33 OBSTRUCTIVE SLEEP APNEA (ADULT) (PEDIATR 2019 LEANNA VILLA APRN Ot G47.50 PARASOMNIA, UNSPECIFIED 2019 LEANNA VILLA APRN Ot J44.9 CHRONIC OBSTRUCTIVE PULMONARY DISEASE, U 2019 LEANNA VILLA APRN Ot R06.02 SHORTNESS OF BREATH 2019 LEANNA VILLA APRN Ot Z68.42 BODY MASS INDEX (BMI) 45.0-49.9, ADULT 2019 LEANNA VILLA APRN Ot Z72.0 TOBACCO USE 2019 CESAR PATTON DO Ot Z01.818 ENCOUNTER FOR OTHER PREPROCEDURAL EXAMIN 03/17/2019 CESAR PATTON DO Ot Z01.818 ENCOUNTER FOR OTHER PREPROCEDURAL EXAMIN 03/18/2019 CESAR PATTON DO Ot E66. 01 MORBID (SEVERE) OBESITY DUE TO EXCESS CA 03/18/2019 CESAR PATTON DO Ot E78. 5 HYPERLIPIDEMIA, UNSPECIFIED 03/18/2019 CESAR PATTON DO Ot F17.210 NICOTINE DEPENDENCE, CIGARETTES, UNCOMPL 03/18/2019 CESAR PATTON DO Ot F32. 9 MAJOR DEPRESSIVE DISORDER, SINGLE EPISOD 03/18/2019 CESAR PATTON DO Ot G47. 33 OBSTRUCTIVE SLEEP APNEA (ADULT) (PEDIATR 03/18/2019 CESAR PATTON DO Ot I10 ESSENTIAL (PRIMARY) HYPERTENSION 03/18/2019 CESAR PATTON DO Ot I65. 23 OCCLUSION AND STENOSIS OF BILATERAL [place] 03/18/2019 CESAR PATTON DO Ot J44. 9 CHRONIC OBSTRUCTIVE PULMONARY DISEASE, U 03/18/2019 CESAR PATTON DO Ot K21. 0 GASTRO-ESOPHAGEAL REFLUX DISEASE WITH ES 03/18/2019 CESAR PATTON DO Ot K29. 50 UNSPECIFIED CHRONIC GASTRITIS WITHOUT BL 03/18/2019 CESAR PATTON DO Ot K44. 9 DIAPHRAGMATIC HERNIA WITHOUT OBSTRUCTION 03/18/2019 CESAR PATTON DO Ot N31. 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 11 ENCOUNTER FOR SCREENING FOR MALIGNANT NE 03/18/2019 CESAR PATTON DO Ot Z68. 43 BODY MASS INDEX (BMI) 50.0-59.9, ADULT 03/18/2019 CESAR PATTON DO Ot Z79. 51 SKILLED NURSING (CURRENT) USE OF INHALED STERO 03/18/2019 CESAR PATTON DO Ot Z79.891 SKILLED NURSING (CURRENT) USE OF OPIATE ANALGE 03/18/2019 CESAR PATTON DO Ot Z79.899 OTHER SKILLED NURSING (CURRENT) DRUG THERAPY 03/18/2019 CESAR PATTON DO Ot Z88. 1 ALLERGY STATUS TO OTHER ANTIBIOTIC AGENT 03/18/2019 CESAR PATTON DO Ot Z88. 5 ALLERGY STATUS TO NARCOTIC AGENT STATUS 03/18/2019 CESAR PATTON DO Ot Z88. 8 ALLERGY STATUS TO OTH DRUG/MEDS/BIOL SUB 03/18/2019 CESAR PATTON DO Ot Z90.710 ACQUIRED ABSENCE OF BOTH CERVIX AND UTER 03/18/2019 CESAR PATTON DO Ot Z90.722 ACQUIRED ABSENCE OF OVARIES, BILATERAL 03/18/2019 CESAR PATTON DO Ot Z91.030 BEE ALLERGY STATUS 03/18/2019 CESAR PATTON DO Ot Z96.651 PRESENCE OF RIGHT ARTIFICIAL KNEE JOINT 03/18/2019 CESAR PATTON DO Ot Z99. 81 DEPENDENCE ON SUPPLEMENTAL OXYGEN 03/22/2019 CESAR PATTON DO Ot E66. 01 MORBID (SEVERE) OBESITY DUE TO EXCESS CA 03/22/2019 CESAR PATTON DO Ot E78. 5 HYPERLIPIDEMIA, UNSPECIFIED 03/22/2019 CESAR PATTON DO Ot F17.210 NICOTINE DEPENDENCE, CIGARETTES, UNCOMPL 03/22/2019 CESAR PATTON DO Ot F32. 9 MAJOR DEPRESSIVE DISORDER, SINGLE EPISOD 03/22/2019 CESAR PATTON DO Ot G47. 33 OBSTRUCTIVE SLEEP APNEA (ADULT) (PEDIATR 03/22/2019 CESAR PATTON DO Ot I10 ESSENTIAL (PRIMARY) HYPERTENSION 03/22/2019 CESAR PATTON DO Ot I65. 23 OCCLUSION AND STENOSIS OF BILATERAL [place] 03/22/2019 CESAR PATTON DO Ot J44. 9 CHRONIC OBSTRUCTIVE PULMONARY DISEASE, U 03/22/2019 CESAR PATTON DO Ot K21. 0 GASTRO-ESOPHAGEAL REFLUX DISEASE WITH ES 03/22/2019 CESAR PATTON DO Ot K29. 50 UNSPECIFIED CHRONIC GASTRITIS WITHOUT BL 03/22/2019 CESAR PATTON DO Ot K44. 9 DIAPHRAGMATIC HERNIA WITHOUT OBSTRUCTION 03/22/2019 CESAR PATTON DO Ot N31. 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 11 ENCOUNTER FOR SCREENING FOR MALIGNANT NE 03/22/2019 CESAR PATTON DO Ot Z68. 43 BODY MASS INDEX (BMI) 50.0-59.9, ADULT 03/22/2019 CESAR PATTON DO Ot Z79. 51 BLENDER CONVEYOR OPERATOR (CURRENT) USE OF INHALED STERO 03/22/2019 CESAR PATTON DO Ot Z79.891 BLENDER CONVEYOR OPERATOR (CURRENT) USE OF OPIATE ANALGE 03/22/2019 CESAR PATTON DO, Ot Z79.899 OTHER SKILLED NURSING (CURRENT) DRUG THERAPY 03/22/2019 CESAR PATTON DO Ot Z88. 1 ALLERGY STATUS TO OTHER ANTIBIOTIC AGENT 03/22/2019 CESAR PATTON DO Ot Z88. 5 ALLERGY STATUS TO NARCOTIC AGENT STATUS 03/22/2019 CESAR PATTON DO Ot Z88. 8 ALLERGY STATUS TO OTH DRUG/MEDS/BIOL SUB 03/22/2019 CESAR PATTON DO Ot Z90.710 ACQUIRED ABSENCE OF BOTH CERVIX AND UTER 03/22/2019 CESAR PATTON DO Ot Z90.722 ACQUIRED ABSENCE OF OVARIES, BILATERAL 03/22/2019 CESAR PATTON DO Ot Z91.030 BEE ALLERGY STATUS 03/22/2019 CESAR PATTON DO Ot Z96.651 PRESENCE OF RIGHT ARTIFICIAL KNEE JOINT 03/22/2019 CESAR PATTON DO Ot Z99. 81 DEPENDENCE ON SUPPLEMENTAL OXYGEN 04/09/2019 CESAR PATTON DO Ot Z01.818 ENCOUNTER FOR OTHER PREPROCEDURAL EXAMIN 04/09/2019 CESAR PATTON DO Ot Z01.818 ENCOUNTER FOR OTHER PREPROCEDURAL EXAMIN 04/11/2019 CESAR PATTON DO Ot Z01.818 ENCOUNTER FOR OTHER PREPROCEDURAL EXAMIN [facility]/11/[facility] ENCOUNTER FOR OTHER PREPROCEDURAL EXAMIN 04/15/2019 LEANNA VILLA APRN Ot J44.9 CHRONIC OBSTRUCTIVE PULMONARY DISEASE, U 04/15/2019 LEANNA VILLA APRN Ot M48.54XA COLLAPSED VERTEBRA, NEC, THORACIC REGION 04/15/2019 LEANNA VILLA APRN Ot M51.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, 04/15/2019 LEANNA VILLA APRN Ot R91.8 OTHER NONSPECIFIC ABNORMAL FINDING OF LISA 04/15/2019 LEANNA VILLA APRN Ot Z72.0 TOBACCO USE 05/05/2019 SOSA HENRY MD Ot R07 .0 PAIN IN THROAT 05/05/2019 SOSA HENRY MD Ot R09.89 OTH SYMPTOMS AND SIGNS INVOLVING THE CIR 05/07/2019 SOSA HENRY MD Ot R07 .0 PAIN IN THROAT 05/07/2019 SOSA HENRY MD Ot R09.89 OTH SYMPTOMS AND SIGNS INVOLVING THE CIR 05/12/2019 RASHEED RAHMAN Ot V76.12 OTH SCREEN MAMMO-MALIGN NEOPLASM OF SAMANTHA 05/12/2019 SAMEERA ESCOTO, JAMIE Ot V72.84 EXAM PRE-OPERATIVE NOS 05/12/2019 SOSA GUSMAN MD Ot 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 PATELLAE 05/12/2019 SOSA GUSMAN MD Ot V72.84 EXAM PRE-OPERATIVE NOS 05/12/2019 SOSA GUSMAN MD Ot V74.8 SCREEN-BACTERIAL DIS NEC 05/12/2019 SOSA GUSMAN MD Ot 727.61 ROTATOR CUFF RUPTURE 05/12/2019 RYAN JONES MD Ot 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 05/12/2019 RYAN JONES MD Ot 788.3 0 UNSPECIFIED URINARY INCONTINENCE 05/12/2019 RYAN JONES MD Ot V72.8 4 EXAM PRE-OPERATIVE NOS 05/12/2019 KAREN ESCOTO, RYAN Moeller Ot V74.8 SCREEN-BACTERIAL DIS NEC 05/12/2019 BERT HDEZ, MORAIMA Moeller Ot 719.46 JOINT PAIN-L/LEG 05/12/2019 BERT HDEZ, MORAIMA Sunni Ot 724.2 LUMBAGO 05/12/2019 BERT HDEZ, MORAIMA Moeller Ot 959.7 LOWER LEG INJURY NOS 05/12/2019 MORAIMA NOEL DO Ot E000.8 OTHER EXTERNAL CAUSE STATUS 05/12/2019 MORAIMA NOEL DO Ot E849.0 ACCIDENT IN HOME 05/12/2019 BERT HDEZ, MORAIMA Moeller Ot E888.9 FALL NOS 05/12/2019 MORAIMA NOEL DO Ot 789.01 ABDOMINAL PAIN, RIGHT UPPER QUADRANT 05/12/2019 BERT HDEZ MORAIMA Moeller Ot 575.8 DIS OF GALLBLADDER NEC 05/12/2019 RUFINA ESCOTO, NARAYAN Marr Ot 575.8 DIS OF GALLBLADDER NEC 05/12/2019 RUFINA ESCOTO, NARAYAN Marr Ot V72.63 PRE-PROCEDURAL LABORATORY EXAMINATION 05/12/2019 RUFINA ESCOTO, NARAYAN Marr Ot V72.81 [id number] CARDIOVASCULAR 05/12/2019 RUFINA ESCOTO, NARAYAN Marr Ot V74.8 SCREEN-BACTERIAL DIS NEC 05/12/2019 NESS ESCOTO, SOSA Shelby Ot 715.31 LOC OSTEOARTH NOS-SHLDER 05/12/2019 NESS ESCOTO, SOSA Shelby Ot 727.61 ROTATOR CUFF RUPTURE 05/12/2019 SOSA GUSMAN MD Ot 840.7 (SLAP) SUPERIOR GLENOID LABRUM LESIONS 05/12/2019 NESS ESCOTO, SOSA Shelby Ot V72.83 EXAM PRE-OPERATIVE NEC 05/12/2019 Ot G56.02 CAR PAL TUNNEL SYNDROME, LEFT UPPER LIMB 05/12/2019 Ot Z01.818 EN COUNTER FOR OTHER PREPROCEDURAL EXAMIN 05/12/2019 Ot Z11.2 ENCO UNTER FOR SCREENING FOR OTHER BACTER 05/12/2019 RASHEED RAHMAN Ot Z12.31 ENCNTR SCREEN MAMMOGRAM FOR MALIGNANT NE 05/12/2019 BERT HDEZ MORAIMA Moeller Ot Z13.89 ENCOUNTER FOR SCREENING FOR OTHER DISORD 05/12/2019 NESS ESCOTO, SOSA Shelby Ot G56.01 CARPAL TUNNEL SYNDROME, RIGHT UPPER LIMB 05/12/2019 NESS ESCOTO, SOSA Shelby Ot Z01.818 ENCOUNTER FOR OTHER PREPROCEDURAL EXAMIN 05/12/2019 MORAIMA NOEL DO Ot J40 BRONCHITIS, NOT SPECIFIED ACUTE OR CH 05/12/2019 MORAIMA NOEL DO Ot J44.9 CHRONIC OBSTRUCTIVE PULMONARY DISEASE, U 05/12/2019 MORAIMA NOEL DO Ot N39.0 URINARY TRACT INFECTION, SITE NOT SPECIF 05/12/2019 DINO TILLMAN ASSOCIATE OF SCIENCE IN NURSING Ot R22. 31 LOCALIZED SWELLING, MASS AND LUMP, RIGHT 05/12/2019 RASHEED RAHMANP Ot Z12.31 ENCNTR SCREEN MAMMOGRAM FOR MALIGNANT NE 05/12/2019 SOSA GUSMAN MD Ot M75.121 COMPLETE ROTATR-CUFF TEAR/RUPTR OF R JOSSY 05/12/2019 CLIVE ESCOTO, MEDARDO Chowdhury Ot Z51. 81 ENCOUNTER FOR THERAPEUTIC DRUG LEVEL MON 05/12/2019 CLIVE ESCOTO, MEDARDO Chowdhury Ot Z79.899 OTHER SKILLED NURSING (CURRENT) DRUG THERAPY 05/12/2019 MEDARDO DUFFY MD Ot Z12. 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 05/12/2019 SOSA RESENDIZ MD Ot T65.222D TOXIC EFFECT OF TOBACCO CIGARETTES, SELF 05/12/2019 SOSA RESENDIZ MD Ot 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 05/12/2019 SOSA RESENDIZ MD, Ot T65.222D TOXIC EFFECT OF TOBACCO CIGARETTES, SELF 05/12/2019 COURTNEY HONG L ASSOCIATE OF SCIENCE IN NURSING Ot E78.4 OTHER HYPERLIPIDEMIA 05/12/2019 BAIMA, COURTNEY L ASSOCIATE OF SCIENCE IN NURSING Ot F17.200 NICOTINE DEPENDENCE, UNSPECIFIED, UNCOMP 05/12/2019 BAIMA, COURTNEY L ASSOCIATE OF SCIENCE IN NURSING Ot I 10 ESSENTIAL (PRIMARY) HYPERTENSION 05/12/2019 BAIMA, COURTNEY L ASSOCIATE OF SCIENCE IN NURSING Ot 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 05/12/2019 BAIMA, COURTNEY L ASSOCIATE OF SCIENCE IN NURSING Ot E78.2 MIXED HYPERLIPIDEMIA 05/12/2019 BAIMA, COURTNEY L ASSOCIATE OF SCIENCE IN NURSING Ot I 10 ESSENTIAL (PRIMARY) HYPERTENSION 05/12/2019 BAIMA, COURTNEY L ASSOCIATE OF SCIENCE IN NURSING Ot I65.23 OCCLUSION AND STENOSIS OF BILATERAL [place] 05/12/2019 BAIMA, COURTNEY L ASSOCIATE OF SCIENCE IN NURSING Ot 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 05/12/2019 BAIMA, COURTNEY L ASSOCIATE OF SCIENCE IN NURSING Ot R06.00 DYSPNEA, UNSPECIFIED 05/12/2019 BAIMA, COURTNEY L ASSOCIATE OF SCIENCE IN NURSING Ot R60.0 LOCALIZED EDEMA 05/12/2019 BAIMA, COURTNEY L ASSOCIATE OF SCIENCE IN NURSING Ot E78.2 MIXED HYPERLIPIDEMIA 05/12/2019 BAIMA, COURTNEY L ASSOCIATE OF SCIENCE IN NURSING Ot I 10 ESSENTIAL (PRIMARY) HYPERTENSION 05/12/2019 BAIMA, COURTNEY L ASSOCIATE OF SCIENCE IN NURSING Ot I65.23 OCCLUSION AND STENOSIS OF BILATERAL [place] 05/12/2019 BAIMA, COURTNEY L ASSOCIATE OF SCIENCE IN NURSING Ot 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 05/12/2019 BAIMA, COURTNEY L ASSOCIATE OF SCIENCE IN NURSING Ot R06.09 OTHER FORMS OF DYSPNEA 05/12/2019 BAIMA, COURTNEY L ASSOCIATE OF SCIENCE IN NURSING Ot R60.0 LOCALIZED EDEMA 05/12/2019 SAKINA PARRA APRN Ot Z12.31 ENCNTR SCREEN MAMMOGRAM FOR MALIGNANT NE 05/12/2019 LEANNA VILLA APRN Ot E66.09 OTHER OBESITY DUE TO EXCESS CALORIES 05/12/2019 LEANNA VILLA APRN Ot G47.50 PARASOMNIA, UNSPECIFIED 05/12/2019 LEANNA VILLA APRN Ot J44.9 CHRONIC OBSTRUCTIVE PULMONARY DISEASE, U 05/12/2019 LEANNA VILLA APRN Ot R29.818 OTHER SYMPTOMS AND SIGNS INVOLVING THE N 05/12/2019 DAISY, LEANNA E RETAIL BUSINESS MANAGER Ot R91.8 OTHER NONSPECIFIC ABNORMAL FINDING OF LISA 05/12/2019 LEANNA VILLA RETAIL BUSINESS MANAGER Ot Z72.0 TOBACCO USE 05/12/2019 LEANNA VILLA RETAIL BUSINESS MANAGER Ot E66.09 OTHER OBESITY DUE TO EXCESS CALORIES 05/12/2019 LEANNA VILLA RETAIL BUSINESS MANAGER Ot G47.10 HYPERSOMNIA, UNSPECIFIED 05/12/2019 LEANNA VILLA RETAIL BUSINESS MANAGER Ot G47.50 PARASOMNIA, UNSPECIFIED 05/12/2019 LEANNA VILLA RETAIL BUSINESS MANAGER Ot J43.8 OTHER EMPHYSEMA 05/12/2019 LEANNA VILLA RETAIL BUSINESS MANAGER Ot R06.02 SHORTNESS OF BREATH 05/12/2019 LEANNA VILLA RETAIL BUSINESS MANAGER Ot Z72.0 TOBACCO USE 05/12/2019 Ot E66.9 OBES ITY, UNSPECIFIED 05/12/2019 Ot G47.10 HYP ERSOMNIA, UNSPECIFIED 05/12/2019 Ot G47.33 OBS TRUCTIVE SLEEP APNEA (ADULT) (PEDIATR 05/12/2019 Ot G47.50 PAR ASOMNIA, UNSPECIFIED 05/12/2019 Ot 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 OBSTRUCTIVE PULMONARY DISEASE, U 05/12/2019 Ot R06.02 JOSSY RTNESS OF BREATH 05/12/2019 Ot Z68.42 BOD Y MASS INDEX (BMI) 45.0-49.9, ADULT 05/12/2019 Ot Z72.0 TOBA [employer]RI[employer] SWEEPER CLEANER USE 05/12/2019 LEANNA VILLA RETAIL BUSINESS MANAGER Ot E66.09 OTHER OBESITY DUE TO EXCESS CALORIES 05/12/2019 LEANNA VILLA RETAIL BUSINESS MANAGER Ot G47.10 HYPERSOMNIA, UNSPECIFIED 05/12/2019 LEANNA VILLA RETAIL BUSINESS MANAGER Ot G47.33 OBSTRUCTIVE SLEEP APNEA (ADULT) (PEDIATR 05/12/2019 LEANNA VILLA RETAIL BUSINESS MANAGER Ot G47.50 PARASOMNIA, UNSPECIFIED 05/12/2019 LEANNA VILLA RETAIL BUSINESS MANAGER Ot J44.9 CHRONIC OBSTRUCTIVE PULMONARY DISEASE, U 05/12/2019 LEANNA VILLA RETAIL BUSINESS MANAGER Ot R91.1 SOLITARY PULMONARY NODULE 05/12/2019 LEANNA VILLA RETAIL BUSINESS MANAGER Ot Z72.0 TOBACCO USE 05/12/2019 THOMAS JENNINGS Ot K44.9 DIAPHRAGMATIC HERNIA WITHOUT OBSTRUCTION 05/12/2019 LEANNA VILLA APRN Ot E66.9 OBESITY, UNSPECIFIED 05/12/2019 LEANNA VILLA APRN Ot G47.10 HYPERSOMNIA, UNSPECIFIED 05/12/2019 LEANNA VILLA APRN Ot G47.33 OBSTRUCTIVE SLEEP APNEA (ADULT) (PEDIATR 05/12/2019 LEANNA VILLA APRN Ot G47.50 PARASOMNIA, UNSPECIFIED 05/12/2019 LEANNA VILLA APRN Ot J44.9 CHRONIC OBSTRUCTIVE PULMONARY DISEASE, U 05/12/2019 LEANNA VILLA APRN Ot R06.02 SHORTNESS OF BREATH 05/12/2019 LEANNA VILLA APRN Ot Z68.42 BODY MASS INDEX (BMI) 45.0-49.9, ADULT 05/12/2019 LEANNA VILLA APRN Ot Z72.0 TOBACCO USE 05/12/2019 SOSA HENRY MD Ot R07 .0 PAIN IN THROAT 05/12/2019 SOSA HENRY MD Ot R09.89 OT SYMPTOMS AND SIGNS INVOLVING THE CIR 05/12/2019 LEANNA VILLA APRN Ot J44.9 CHRONIC OBSTRUCTIVE PULMONARY DISEASE, U 05/12/2019 LEANNA VILLA APRN Ot M48.54XA COLLAPSED VERTEBRA, NEC, THORACIC REGION 05/12/2019 LEANNA VILLA APRN Ot M51.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, 05/12/2019 LEANNA VILLA APRN Ot R91.8 OTHER NONSPECIFIC ABNORMAL FINDING OF LISA 05/12/2019 LEANNA VILLA APRN Ot Z72.0 TOBACCO USE 05/14/2019 SOSA RESENDIZ MD Ot E66.01 MORBID (SEVERE) OBESITY DUE TO EXCESS CA 05/14/2019 SOSA RESENDIZ MD Ot F17.218 NICOTINE DEPENDENCE, CIGARETTES, W OTH D 05/14/2019 SOSA RESENDIZ MD Ot I87.323 CHRONIC VENOUS HTN W INFLAMMATION OF [place]AYLOR 05/14/2019 SOSA RESENDIZ MD Ot T65.222A TOXIC EFFECT OF TOBACCO CIGARETTES, SELF 07/01/2019 CESAR PATTON DO Ot Z01.818 ENCOUNTER FOR OTHER PREPROCEDURAL EXAMIN 07/02/2019 CESAR PATTON DO Ot Z01.818 ENCOUNTER FOR OTHER PREPROCEDURAL EXAMIN 07/07/2019 CESAR PATTON DO D Ot Z01.818 ENCOUNTER FOR OTHER PREPROCEDURAL EXAMIN 07/08/2019 RASHEED RAHMAN Ot V76.12 OTH SCREEN MAMMO-MALIGN NEOPLASM OF SAMANTHA 07/08/2019 SAMEERA ESCOTO, JAMIE Ot V72.84 EXAM PRE-OPERATIVE NOS 07/08/2019 NESS ESCOTO, SOSA Shelby Ot 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 PATELLAE 07/08/2019 NESS ESCOTO, SOSA Shelby Ot V72.84 EXAM PRE-OPERATIVE NOS 07/08/2019 NESS ESCOTO, SOSA Shelby Ot V74.8 SCREEN-BACTERIAL DIS NEC 07/08/2019 NESS ESCOTO, SOSA Shelby Ot 727.61 ROTATOR CUFF RUPTURE 07/08/2019 KAREN ESCOTO, RYAN Moeller Ot 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 07/08/2019 RYAN JONES MD Ot 788.3 0 UNSPECIFIED URINARY INCONTINENCE 07/08/2019 RYAN JONES MD Ot V72.8 4 EXAM PRE-OPERATIVE NOS 07/08/2019 KAREN ESCOTO, RYAN Moeller Ot V74.8 SCREEN-BACTERIAL DIS NEC 07/08/2019 GELLENDER DO, MORAIMA Moeller Ot 719.46 JOINT PAIN-L/LEG 07/08/2019 [facility]OR[facility]A Moeller Ot 724.2 LUMBAGO 07/08/2019 [facility] MORAIMA Moeller Ot 959.7 LOWER LEG INJURY NOS 07/08/2019 GELLENDER DO, MORAIMA Moeller Ot E000.8 OTHER EXTERNAL CAUSE STATUS 07/08/2019 GELLENDER DO, MORAIMA Moeller Ot E849.0 ACCIDENT IN HOME 07/08/2019 GELLENDER DO, MORAIMA Moeller Ot E888.9 FALL NOS 07/08/2019 GELLENDER DO, MORAIMA Moeller Ot 789.01 ABDOMINAL PAIN, RIGHT UPPER QUADRANT 07/08/2019 GELLENDER DO, MORAIMA Moeller Ot 575.8 DIS OF GALLBLADDER NEC 07/08/2019 RUFINA ESCOTO, NARAYAN Marr Ot 575.8 DIS OF GALLBLADDER NEC 07/08/2019 RUFINA ESCOTO, NARAYAN Marr Ot V72.63 PRE-PROCEDURAL LABORATORY EXAMINATION 07/08/2019 RUFINA ESCOTO, NARAYAN Marr Ot V72.81 [id number] CARDIOVASCULAR 07/08/2019 RUFINA ESCOTO, NARAYAN Marr Ot V74.8 SCREEN-BACTERIAL DIS NEC 07/08/2019 NESS ESCOTO, SOSA Shelby Ot 715.31 LOC OSTEOARTH NOS-SHLDER 07/08/2019 NESS ESCOTO, SOSA Shelby Ot 727.61 ROTATOR CUFF RUPTURE 07/08/2019 SOSA GUSMAN MD Ot 840.7 (SLAP) SUPERIOR GLENOID LABRUM LESIONS 07/08/2019 SOSA GUSMAN MD Ot V72.83 EXAM PRE-OPERATIVE NEC 07/08/2019 Ot G56.02 CAR PAL TUNNEL SYNDROME, LEFT UPPER LIMB 07/08/2019 Ot Z01.818 EN COUNTER FOR OTHER PREPROCEDURAL EXAMIN 07/08/2019 Ot Z11.2 ENCO UNTER FOR SCREENING FOR OTHER BACTER 07/08/2019 RASHEED RAHMAN Ot Z12.31 ENCNTR SCREEN MAMMOGRAM FOR MALIGNANT NE 07/08/2019 MORAIMA NOEL DO Ot Z13.89 ENCOUNTER FOR SCREENING FOR OTHER DISORD 07/08/2019 SOSA GUSMAN MD Ot G56.01 CARPAL TUNNEL SYNDROME, RIGHT UPPER LIMB 07/08/2019 SOSA GUSMAN MD Ot Z01.818 ENCOUNTER FOR OTHER PREPROCEDURAL EXAMIN 07/08/2019 MORAIMA NOEL DO Ot J40 BRONCHITIS, NOT SPECIFIED ACUTE OR CH 07/08/2019 MORAIMA NOEL DO Ot J44.9 CHRONIC OBSTRUCTIVE PULMONARY DISEASE, U 07/08/2019 MORAIMA NOEL DO Ot N39.0 URINARY TRACT INFECTION, SITE NOT SPECIF 07/08/2019 DINO TILLMAN Ot R22. 31 LOCALIZED SWELLING, MASS AND LUMP, RIGHT 07/08/2019 RASHEED RAHMAN Ot Z12.31 ENCNTR SCREEN MAMMOGRAM FOR MALIGNANT NE 07/08/2019 SOSA GUSMAN MD Ot M75.121 COMPLETE ROTATR-CUFF TEAR/RUPTR OF R JOSSY 07/08/2019 MEDARDO DUFFY MD Ot Z51. 81 ENCOUNTER FOR THERAPEUTIC DRUG LEVEL MON 07/08/2019 MEDARDO DUFFY MD Ot Z79.899 OTHER BLENDER CONVEYOR OPERATOR (CURRENT) DRUG THERAPY 07/08/2019 MEDARDO DUFFY MD Ot Z12. 31 ENCNTR SCREEN MAMMOGRAM FOR MALIGNANT NE 07/08/2019 PAMELA ESCOTO, JEN Zhong Ot M25.81 1 OTHER SPECIFIED JOINT DISORDERS, RIGHT S 07/08/2019 JOSEE ESCOTO [facility], ALI FACP CCDS Ot E78.4 OTHER HYPERLIPIDEMIA 07/08/2019 JOSEE ESCOTO [facility], ALI FACP CCDS Ot I10 ESSENTIAL (PRIMARY) HYPERTENSION 07/08/2019 JOSEE ESCOTO [facility], ALI FACP CCDS Ot J43.8 OTHER EMPHYSEMA 07/08/2019 JOSEE ESCOTO [facility], ALI FACP CCDS Ot R06.02 SHORTNESS OF BREATH 07/08/2019 JOSEE ESCOTO [facility], ALI FACP CCDS Ot Z72.0 TOBACCO USE 07/08/2019 MARTÍN ESCOTO, SOSA Tellez Ot 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 07/08/2019 SOSA RESENDIZ MD Ot T65.222D TOXIC EFFECT OF TOBACCO CIGARETTES, SELF 07/08/2019 SOSA RESENDIZ MD Ot 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 07/08/2019 SOSA RESENDIZ MD Ot T65.222D TOXIC EFFECT OF TOBACCO CIGARETTES, SELF 07/08/2019 BAIMA, COURTNEY L ASSOCIATE OF SCIENCE IN NURSING Ot E78.4 OTHER HYPERLIPIDEMIA 07/08/2019 BAIMA, COURTNEY L ASSOCIATE OF SCIENCE IN NURSING Ot F17.200 NICOTINE DEPENDENCE, UNSPECIFIED, UNCOMP 07/08/2019 BAIMA, COURTNEY L ASSOCIATE OF SCIENCE IN NURSING Ot I 10 ESSENTIAL (PRIMARY) HYPERTENSION 07/08/2019 BAIMA, COURTNEY L ASSOCIATE OF SCIENCE IN NURSING Ot 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 07/08/[facility] BAIMA, COURTNEY L ASSOCIATE OF SCIENCE IN NURSING Ot E78.2 MIXED HYPERLIPIDEMIA 07/08/2019 BAIMA, COURTNEY L ASSOCIATE OF SCIENCE IN NURSING Ot I 10 ESSENTIAL (PRIMARY) HYPERTENSION 07/08/2019 BAIMA, COURTNEY L ASSOCIATE OF SCIENCE IN NURSING Ot I65.23 OCCLUSION AND STENOSIS OF BILATERAL [place] 07/08/2019 BAIMA, COURTNEY L ASSOCIATE OF SCIENCE IN NURSING Ot 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 07/08/2019 BAIMA, COURTNEY L ASSOCIATE OF SCIENCE IN NURSING Ot R06.00 DYSPNEA, UNSPECIFIED 07/08/2019 BAIMA, COURTNEY L ASSOCIATE OF SCIENCE IN NURSING Ot R60.0 LOCALIZED EDEMA 07/08/2019 BAIMA, COURTNEY L ASSOCIATE OF SCIENCE IN NURSING Ot E78.2 MIXED HYPERLIPIDEMIA 07/08/2019 BAIMA, COURTNEY L ASSOCIATE OF SCIENCE IN NURSING Ot I 10 ESSENTIAL (PRIMARY) HYPERTENSION 07/08/2019 COURTNEY HONG ASSOCIATE OF SCIENCE IN NURSING Ot I65.23 OCCLUSION AND STENOSIS OF BILATERAL [place] 07/08/2019 RUTHIECOURTNEY MOSS ASSOCIATE OF SCIENCE IN NURSING Ot 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 07/08/2019 RUTHIECOURTNEY MOSS ASSOCIATE OF SCIENCE IN NURSING Ot R06.09 OTHER FORMS OF DYSPNEA 07/08/2019 GELY CUORTNEY Gordon ASSOCIATE OF SCIENCE IN NURSING Ot R60.0 LOCALIZED EDEMA 07/08/2019 SAKINA PARRA RETAIL BUSINESS MANAGER Ot Z12.31 ENCNTR SCREEN MAMMOGRAM FOR MALIGNANT NE 07/08/2019 YA VILLAINE Arvin RETAIL BUSINESS MANAGER Ot E66.09 OTHER OBESITY DUE TO EXCESS CALORIES 07/08/2019 DAISY LEANNA Arvin RETAIL BUSINESS MANAGER Ot G47.50 PARASOMNIA, UNSPECIFIED 07/08/2019 DAISY LEANNA Arvin RETAIL BUSINESS MANAGER Ot J44.9 CHRONIC OBSTRUCTIVE PULMONARY DISEASE, U 07/08/2019 YA VILLAINE Arvin RETAIL BUSINESS MANAGER Ot R29.818 OTHER SYMPTOMS AND SIGNS INVOLVING THE N 07/08/2019 YA VILLAINE Arvin RETAIL BUSINESS MANAGER Ot R91.8 OTHER NONSPECIFIC ABNORMAL FINDING OF LISA 07/08/2019 LEANNA VILLA RETAIL BUSINESS MANAGER Ot Z72.0 TOBACCO USE 07/08/2019 LEANNA VILLA RETAIL BUSINESS MANAGER Ot E66.09 OTHER OBESITY DUE TO EXCESS CALORIES 07/08/2019 YA VILLAINE Arvin RETAIL BUSINESS MANAGER Ot G47.10 HYPERSOMNIA, UNSPECIFIED 07/08/2019 YA VILLAINE Arvin RETAIL BUSINESS MANAGER Ot G47.50 PARASOMNIA, UNSPECIFIED 07/08/2019 LEANNA VILLA RETAIL BUSINESS MANAGER Ot J43.8 OTHER EMPHYSEMA 07/08/2019 YA VILLAINE Arvin RETAIL BUSINESS MANAGER Ot R06.02 SHORTNESS OF BREATH 07/08/2019 YA VILLAINE Arvin RETAIL BUSINESS MANAGER Ot Z72.0 TOBACCO USE 07/08/2019 Ot E66.9 OBES ITY, UNSPECIFIED 07/08/2019 Ot G47.10 HYP ERSOMNIA, UNSPECIFIED 07/08/2019 Ot G47.33 OBS TRUCTIVE SLEEP APNEA (ADULT) (PEDIATR 07/08/2019 Ot G47.50 PAR ASOMNIA, UNSPECIFIED 07/08/2019 Ot 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 OBSTRUCTIVE PULMONARY DISEASE, U 07/08/2019 Ot R06.02 JOSSY RTNESS OF BREATH 07/08/2019 Ot Z68.42 BOD Y MASS INDEX (BMI) 45.0-49.9, ADULT 07/08/2019 Ot Z72.0 TOBA INDUSTRIAL SWEEPER CLEANER USE 07/08/2019 LEANNA VILLA RETAIL BUSINESS MANAGER Ot E66.09 OTHER OBESITY DUE TO EXCESS CALORIES 07/08/2019 LEANNA VILLA RETAIL BUSINESS MANAGER Ot G47.10 HYPERSOMNIA, UNSPECIFIED 07/08/2019 LEANNA VILLA RETAIL BUSINESS MANAGER Ot G47.33 OBSTRUCTIVE SLEEP APNEA (ADULT) (PEDIATR 07/08/2019 LEANNA VILLA RETAIL BUSINESS MANAGER Ot G47.50 PARASOMNIA, UNSPECIFIED 07/08/2019 LEANNA VILLA RETAIL BUSINESS MANAGER Ot J44.9 CHRONIC OBSTRUCTIVE PULMONARY DISEASE, U 07/08/2019 LEANNA VILLA RETAIL BUSINESS MANAGER Ot R91.1 SOLITARY PULMONARY NODULE 07/08/2019 LEANNA VILLA RETAIL BUSINESS MANAGER Ot Z72.0 TOBACCO USE 07/08/2019 THOMAS JENNINGS Ot K44.9 DIAPHRAGMATIC HERNIA WITHOUT OBSTRUCTION 07/08/2019 LEANNA VILLA RETAIL BUSINESS MANAGER Ot E66.9 OBESITY, UNSPECIFIED 07/08/2019 LEANNA VILLA RETAIL BUSINESS MANAGER Ot G47.10 HYPERSOMNIA, UNSPECIFIED 07/08/2019 LEANNA VILLA RETAIL BUSINESS MANAGER Ot G47.33 OBSTRUCTIVE SLEEP APNEA (ADULT) (PEDIATR 07/08/2019 LEANNA VILLA RETAIL BUSINESS MANAGER Ot G47.50 PARASOMNIA, UNSPECIFIED 07/08/2019 LEANNA VILLA RETAIL BUSINESS MANAGER Ot J44.9 CHRONIC OBSTRUCTIVE PULMONARY DISEASE, U 07/08/2019 LEANNA VILLA RETAIL BUSINESS MANAGER Ot R06.02 SHORTNESS OF BREATH 07/08/2019 LEANNA VILLA RETAIL BUSINESS MANAGER Ot Z68.42 BODY MASS INDEX (BMI) 45.0-49.9, ADULT 07/08/2019 LEANNA VILLA RETAIL BUSINESS MANAGER Ot Z72.0 TOBACCO USE 07/08/2019 SOSA HENRY MD Ot R07 .0 PAIN IN THROAT 07/08/2019 SOSA HENRY MD Ot R09.89 OTH SYMPTOMS AND SIGNS INVOLVING THE CIR 07/08/2019 LEANNA VILLA RETAIL BUSINESS MANAGER Ot J44.9 CHRONIC OBSTRUCTIVE PULMONARY DISEASE, U 07/08/2019 LEANNA VILLA RETAIL BUSINESS MANAGER Ot M48.54XA COLLAPSED VERTEBRA, NEC, THORACIC REGION 07/08/2019 LEANNA VILLA APRN Ot M51.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, 07/08/2019 LEANNA VILLA APRN Ot R91.8 OTHER NONSPECIFIC ABNORMAL FINDING OF LISA 07/08/2019 LEANNA VILLA APRN Ot Z72.0 TOBACCO USE 07/08/2019 SOSA RESENDIZ MD Ot E66.01 MORBID (SEVERE) OBESITY DUE TO EXCESS CA 07/08/2019 SOSA RESENDIZ MD Ot F17.218 NICOTINE DEPENDENCE, CIGARETTES, W OTH D 07/08/2019 SOSA RESENDIZ MD Ot I87.323 CHRONIC VENOUS HTN W INFLAMMATION OF [place]AYLOR 07/08/2019 SOSA RESENDIZ MD Ot T65.222A TOXIC EFFECT OF TOBACCO CIGARETTES, SELF 07/08/2019 CESAR PATTON DO Ot 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 79 BENIGN LIPOMATOUS NEOPLASM OF OTHER SITE 07/08/2019 CESAR PATTON DO Ot E66. 01 MORBID (SEVERE) OBESITY DUE TO EXCESS CA 07/08/2019 POOJA HDEZ, CESAR Lovelace Ot E78. 5 HYPERLIPIDEMIA, UNSPECIFIED 07/08/2019 POOJA HDEZ CESAR D Ot F17.210 NICOTINE DEPENDENCE, CIGARETTES, UNCOMPL 07/08/2019 CESAR PATTON DO Ot F41. 9 ANXIETY DISORDER, UNSPECIFIED 07/08/2019 CESAR PATTON DO Ot G47. 50 PARASOMNIA, UNSPECIFIED 07/08/2019 CESAR PATTON DO Ot I10 ESSENTIAL (PRIMARY) HYPERTENSION 07/08/2019 PATTON DOCESAR Ot I65. 23 OCCLUSION AND STENOSIS OF BILATERAL [place] 07/08/2019 POOJA HDEZ CESAR D Ot J44. 9 CHRONIC OBSTRUCTIVE PULMONARY DISEASE, U 07/08/2019 CESAR PATTON DO Ot K21. 9 GASTRO-ESOPHAGEAL REFLUX DISEASE WITHOUT 07/08/2019 PATTON DOCESAR Ot K59. 09 OTHER CONSTIPATION 07/08/2019 PATTON DOCESAR Ot R10. 30 LOWER ABDOMINAL PAIN, UNSPECIFIED 07/08/2019 CESAR PATTON DO Ot Z68. 42 BODY MASS INDEX (BMI) 45.0-49.9, ADULT 07/08/2019 [facility] CESAR D Ot Z79.899 OTHER BLENDER CONVEYOR OPERATOR (CURRENT) DRUG THERAPY 07/08/2019 [facility] CESAR D Ot Z82. 49 FAMILY HX OF ISCHEM HEART DIS AND OTH DI 07/08/2019 [facility]. 3 FAMILY HISTORY OF DIABETES MELLITUS 07/08/2019 [facility] Z88. 1 ALLERGY STATUS TO OTHER ANTIBIOTIC AGENT 07/08/2019 [facility] Z88. 2 ALLERGY STATUS TO SULFONAMIDES STATUS 07/08/2019 [facility] Z88. 5 ALLERGY STATUS TO NARCOTIC AGENT STATUS 07/08/2019 [facility] CESAR D Ot Z90.710 ACQUIRED ABSENCE OF BOTH CERVIX AND UTER 07/08/2019 [facility] Z90. 89 ACQUIRED ABSENCE OF OTHER ORGANS 07/08/2019 [facility] CESAR D Ot Z91.030 BEE ALLERGY STATUS 07/08/2019 [facility] Z99. 89 DEPENDENCE ON OTHER ENABLING MACHINES AN 07/09/2019 RASHEED RAHMAN Ot V76.12 OTH SCREEN MAMMO-MALIGN NEOPLASM OF SAMANTHA 07/09/2019 SAMEERA ESCOTO, JAMIE Ot V72.84 EXAM PRE-OPERATIVE NOS 07/09/2019 NESS ESCOTO, SOSA Shelby Ot 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 PATELLAE 07/09/2019 SOSA GUSMAN MD Ot V72.84 EXAM PRE-OPERATIVE NOS 07/09/2019 ENSS ESCOTO, SOSA Shelby Ot V74.8 SCREEN-BACTERIAL DIS NEC 07/09/2019 SOSA GUSMAN MD Ot 727.61 ROTATOR CUFF RUPTURE 07/09/2019 RYAN JONES MD Ot 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 07/09/2019 RYAN JONES MD Ot 788.3 0 UNSPECIFIED URINARY INCONTINENCE 07/09/2019 RYAN JONES MD Ot V72.8 4 EXAM PRE-OPERATIVE NOS 07/09/2019 RYAN JONES MD Ot V74.8 SCREEN-BACTERIAL DIS NEC 07/09/2019 MORAIMA NOEL DO Ot 719.46 JOINT PAIN-L/LEG 07/09/2019 MORAIMA NOEL DO Sunni Ot 724.2 LUMBAGO 07/09/2019 BERT DO, MORAIMA Moeller Ot 959.7 LOWER LEG INJURY NOS 07/09/2019 BERT HDEZ, MORAIMA Moeller Ot E000.8 OTHER EXTERNAL CAUSE STATUS 07/09/2019 BERT HDEZ, MORAIMA Moeller Ot E849.0 ACCIDENT IN HOME 07/09/2019 BERT HDEZ, MORAIMA Moeller Ot E888.9 FALL NOS 07/09/2019 BERT HDEZ, MORAIMA Moeller Ot 789.01 ABDOMINAL PAIN, RIGHT UPPER QUADRANT 07/09/2019 BERT HDEZ, MORAIMA Moeller Ot 575.8 DIS OF GALLBLADDER NEC 07/09/2019 RUFINA ESCOTO, NARAYAN Marr Ot 575.8 DIS OF GALLBLADDER NEC 07/09/2019 RUFINA ESCOTO, NARAYAN Marr Ot V72.63 PRE-PROCEDURAL LABORATORY EXAMINATION 07/09/2019 RUFINA ESCOTO, NARAYAN Marr Ot V72.81 [id number] CARDIOVASCULAR 07/09/2019 RUFINA ESCOTO, NARAYAN Marr Ot V74.8 SCREEN-BACTERIAL DIS NEC 07/09/2019 NESS ESCOTO, SOSA Shelby Ot 715.31 LOC OSTEOARTH NOS-SHLDER 07/09/2019 NESS ESCOTO, SOSA Shelby Ot 727.61 ROTATOR CUFF RUPTURE 07/09/2019 NESS ESCOTO, SOSA Shelby Ot 840.7 (SLAP) SUPERIOR GLENOID LABRUM LESIONS 07/09/2019 NESS ESCOTO, SOSA Shelby Ot V72.83 EXAM PRE-OPERATIVE NEC 07/09/2019 Ot G56.02 CAR PAL TUNNEL SYNDROME, LEFT UPPER LIMB 07/09/2019 Ot Z01.818 EN COUNTER FOR OTHER PREPROCEDURAL EXAMIN 07/09/2019 Ot Z11.2 ENCO UNTER FOR SCREENING FOR OTHER BACTER 07/09/2019 RASHEED RAHMAN Ot Z12.31 ENCNTR SCREEN MAMMOGRAM FOR MALIGNANT NE 07/09/2019 BERT HDEZ, MORAIMA Moeller Ot Z13.89 ENCOUNTER FOR SCREENING FOR OTHER DISORD 07/09/2019 NESS ESCOTO, SOSA Shelby Ot G56.01 CARPAL TUNNEL SYNDROME, RIGHT UPPER LIMB 07/09/2019 NESS ESCOTO, SOSA Shelby Ot Z01.818 ENCOUNTER FOR OTHER PREPROCEDURAL EXAMIN 07/09/2019 BERT HDEZ, MORAIMA Moeller Ot J40 BRONCHITIS, NOT SPECIFIED ACUTE OR CH 07/09/2019 BERT HDEZMORAIMA Ot J44.9 CHRONIC OBSTRUCTIVE PULMONARY DISEASE, U 07/09/2019 MAXIMUSEPIFANIO MORAIMA HDEZ Ot N39.0 URINARY TRACT INFECTION, SITE NOT SPECIF 07/09/2019 DINO TILLMAN ASSOCIATE OF SCIENCE IN NURSING Ot R22. 31 LOCALIZED SWELLING, MASS AND LUMP, RIGHT 07/09/2019 JOSIAHRASHEED ISAAC ASSOCIATE OF SCIENCE IN NURSING Ot Z12.31 ENCNTR SCREEN MAMMOGRAM FOR MALIGNANT NE 07/09/2019 NESS ESCOTO, SOSA Shelby Ot M75.121 COMPLETE ROTATR-CUFF TEAR/RUPTR OF R JOSSY 07/09/2019 MEDARDO DUFFY MD Ot Z51. 81 ENCOUNTER FOR THERAPEUTIC DRUG LEVEL MON 07/09/2019 MEDARDO DUFFY MD Ot Z79.899 OTHER BLENDER CONVEYOR OPERATOR (CURRENT) DRUG THERAPY 07/09/2019 MEDARDO DUFFY MD Ot Z12. 31 ENCNTR SCREEN MAMMOGRAM FOR MALIGNANT NE 07/09/2019 PAMELA ESCOTO, JEN Zhong Ot M25.81 1 OTHER SPECIFIED JOINT DISORDERS, RIGHT S 07/09/2019 JOSEE ESCOTO FACC, ALI FACP CCDS Ot E78.4 OTHER HYPERLIPIDEMIA 07/09/2019 JOSEE ESCOTO FACC, ALI FACP CCDS Ot I10 ESSENTIAL (PRIMARY) HYPERTENSION 07/09/2019 JOSEE ESCOTO FACC, ALI FACP CCDS Ot J43.8 OTHER EMPHYSEMA 07/09/2019 JOSEE ESCOTO FACC, ALI FACP CCDS Ot R06.02 SHORTNESS OF BREATH 07/09/2019 JOSEE ESCOTO FACC, ALI FACP CCDS Ot Z72.0 TOBACCO USE 07/09/2019 SOSA RESENDIZ MD Ot 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 07/09/2019 SOSA RESENDIZ MD Ot T65.222D TOXIC EFFECT OF TOBACCO CIGARETTES, SELF 07/09/2019 SOSA RESENDIZ MD Ot 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 07/09/2019 SOSA RESENDIZ MD Ot T65.222D TOXIC EFFECT OF TOBACCO CIGARETTES, SELF 07/09/2019 COURTNEY HONG ASSOCIATE OF SCIENCE IN NURSING Ot E78.4 OTHER HYPERLIPIDEMIA 07/09/2019 COURTNEY HONG ASSOCIATE OF SCIENCE IN NURSING Ot F17.200 NICOTINE DEPENDENCE, UNSPECIFIED, UNCOMP 07/09/2019 BAIMA, COURTNEY L ASSOCIATE OF SCIENCE IN NURSING Ot I 10 ESSENTIAL (PRIMARY) HYPERTENSION 07/09/2019 BAIMA, COURTNEY L ASSOCIATE OF SCIENCE IN NURSING Ot 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 07/[facility] BAIMA, COURTNEY L ASSOCIATE OF SCIENCE IN NURSING Ot E78.2 MIXED HYPERLIPIDEMIA 07/09/2019 BAIMA, COURTNEY L ASSOCIATE OF SCIENCE IN NURSING Ot I 10 ESSENTIAL (PRIMARY) HYPERTENSION 07/09/2019 BAIMA, COURTNEY L ASSOCIATE OF SCIENCE IN NURSING Ot I65.23 OCCLUSION AND STENOSIS OF BILATERAL [place] 07/09/2019 BAIMA, COURTNEY L ASSOCIATE OF SCIENCE IN NURSING Ot 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 07/09/2019 BAIMA, COURTNEY L ASSOCIATE OF SCIENCE IN NURSING Ot R06.00 DYSPNEA, UNSPECIFIED 07/09/2019 BAIMA, COURTNEY L ASSOCIATE OF SCIENCE IN NURSING Ot R60.0 LOCALIZED EDEMA 07/09/2019 BAIMA, OCURTNEY L ASSOCIATE OF SCIENCE IN NURSING Ot E78.2 MIXED HYPERLIPIDEMIA 07/09/2019 BAIMA, COURTNEY L ASSOCIATE OF SCIENCE IN NURSING Ot I 10 ESSENTIAL (PRIMARY) HYPERTENSION 07/09/2019 BAIMA, COURTNEY L ASSOCIATE OF SCIENCE IN NURSING Ot I65.23 OCCLUSION AND STENOSIS OF BILATERAL [place] 07/09/2019 BAIMA, COURTNEY L ASSOCIATE OF SCIENCE IN NURSING Ot 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 W [facility] 07/09/2019 BAIMA, COURTNEY L ASSOCIATE OF SCIENCE IN NURSING Ot R06.09 OTHER FORMS OF DYSPNEA 07/09/2019 BAIMA, COURTNEY L ASSOCIATE OF SCIENCE IN NURSING Ot R60.0 LOCALIZED EDEMA 07/09/2019 SAKINA PARRA APRN Ot Z12.31 ENCNTR SCREEN MAMMOGRAM FOR MALIGNANT NE 07/09/2019 LEANNA VILLA APRN Ot E66.09 OTHER OBESITY DUE TO EXCESS CALORIES 07/09/2019 LEANNA IVLLA APRN Ot G47.50 PARASOMNIA, UNSPECIFIED 07/09/2019 LEANNA VILLA APRN Ot J44.9 CHRONIC OBSTRUCTIVE PULMONARY DISEASE, U 07/09/2019 LEANNA VILLA APRN Ot R29.818 OTHER SYMPTOMS AND SIGNS INVOLVING THE N 07/09/2019 LEANNA VILLA APRN Ot R91.8 OTHER NONSPECIFIC ABNORMAL FINDING OF LISA 07/09/2019 LEANNA VILLA APRN Ot Z72.0 TOBACCO USE 07/09/2019 DAISY, LEANNA E RETAIL BUSINESS MANAGER Ot E66.09 OTHER OBESITY DUE TO EXCESS CALORIES 07/09/2019 LEANNA VILLA RETAIL BUSINESS MANAGER Ot G47.10 HYPERSOMNIA, UNSPECIFIED 07/09/2019 LEANNA VILLA RETAIL BUSINESS MANAGER Ot G47.50 PARASOMNIA, UNSPECIFIED 07/09/2019 YA VILLAINE E RETAIL BUSINESS MANAGER Ot J43.8 OTHER EMPHYSEMA 07/09/2019 LEANNA VILLA RETAIL BUSINESS MANAGER Ot R06.02 SHORTNESS OF BREATH 07/09/2019 LEANNA VILLA RETAIL BUSINESS MANAGER Ot Z72.0 TOBACCO USE 07/09/2019 Ot E66.9 OBES ITY, UNSPECIFIED 07/09/2019 Ot G47.10 HYP ERSOMNIA, UNSPECIFIED 07/09/2019 Ot G47.33 OBS TRUCTIVE SLEEP APNEA (ADULT) (PEDIATR 07/09/2019 Ot G47.50 PAR ASOMNIA, UNSPECIFIED 07/09/2019 Ot 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 OBSTRUCTIVE PULMONARY DISEASE, U 07/09/2019 Ot R06.02 JOSSY RTNESS OF BREATH 07/09/2019 Ot Z68.42 BOD Y MASS INDEX (BMI) 45.0-49.9, ADULT 07/09/2019 Ot Z72.0 TOBA [employer]EE[employer] CLEANER USE 07/09/2019 LEANNA VILLA RETAIL BUSINESS MANAGER Ot E66.09 OTHER OBESITY DUE TO EXCESS CALORIES 07/09/2019 LEANNA VILLA RETAIL BUSINESS MANAGER Ot G47.10 HYPERSOMNIA, UNSPECIFIED 07/09/2019 LEANNA VILLA RETAIL BUSINESS MANAGER Ot G47.33 OBSTRUCTIVE SLEEP APNEA (ADULT) (PEDIATR 07/09/2019 LEANNA VILLA RETAIL BUSINESS MANAGER Ot G47.50 PARASOMNIA, UNSPECIFIED 07/09/2019 LEANNA VILLA RETAIL BUSINESS MANAGER Ot J44.9 CHRONIC OBSTRUCTIVE PULMONARY DISEASE, U 07/09/2019 YA VILLAINE E RETAIL BUSINESS MANAGER Ot R91.1 SOLITARY PULMONARY NODULE 07/09/2019 LEANNA VILLA RETAIL BUSINESS MANAGER Ot Z72.0 TOBACCO USE 07/09/2019 THOMAS JENNINGS Ot K44.9 DIAPHRAGMATIC HERNIA WITHOUT OBSTRUCTION 07/09/2019 LEANNA VILLA RETAIL BUSINESS MANAGER Ot E66.9 OBESITY, UNSPECIFIED 07/09/2019 LEANNA VILLA RETAIL BUSINESS MANAGER Ot G47.10 HYPERSOMNIA, UNSPECIFIED 07/09/2019 DAISYLEANNA CHAIREZ APRN Ot G47.33 OBSTRUCTIVE SLEEP APNEA (ADULT) (PEDIATR 07/09/2019 LEANNA VILLA APRN Ot G47.50 PARASOMNIA, UNSPECIFIED 07/09/2019 LEANNA VILLA APRN Ot J44.9 CHRONIC OBSTRUCTIVE PULMONARY DISEASE, U 07/09/2019 LEANNA VILLA APRN Ot R06.02 SHORTNESS OF BREATH 07/09/2019 LEANNA VILLA APRN Ot Z68.42 BODY MASS INDEX (BMI) 45.0-49.9, ADULT 07/09/2019 LEANNA VILLA APRN Ot Z72.0 TOBACCO USE 07/09/2019 SOSA HENRY MD Ot R07 .0 PAIN IN THROAT 07/09/2019 SOSA HENRY MD Ot R09.89 OTH SYMPTOMS AND SIGNS INVOLVING THE CIR 07/09/2019 LEANNA VILLA APRN Ot J44.9 CHRONIC OBSTRUCTIVE PULMONARY DISEASE, U 07/09/2019 LEANNA VILLA APRN Ot M48.54XA COLLAPSED VERTEBRA, NEC, THORACIC REGION 07/09/2019 LEANNA VILLA APRN Ot M51.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, 07/09/2019 LEANNA VILLA APRN Ot R91.8 OTHER NONSPECIFIC ABNORMAL FINDING OF LISA 07/09/2019 LEANNA VILLA APRN Ot Z72.0 TOBACCO USE 07/09/2019 SOSA RESENDIZ MD Ot E66.01 MORBID (SEVERE) OBESITY DUE TO EXCESS CA 07/09/2019 SOSA RESENDIZ MD Ot F17.218 NICOTINE DEPENDENCE, CIGARETTES, W OTH D 07/09/2019 SOSA RESENDIZ MD Ot I87.323 CHRONIC VENOUS HTN W INFLAMMATION OF [place] 07/09/2019 SOSA RESENDIZ MD Ot T65.222A TOXIC EFFECT OF TOBACCO CIGARETTES, SELF 07/10/2019 CESAR PATTON DO Ot D17. 79 BENIGN LIPOMATOUS NEOPLASM OF OTHER SITE 07/10/2019 CESAR PATTON DO Ot E66. 01 MORBID (SEVERE) OBESITY DUE TO EXCESS CA 07/10/2019 CESAR PATTON DO Ot E78. 5 HYPERLIPIDEMIA, UNSPECIFIED 07/10/2019 CESAR PATTON DO Ot F17.210 NICOTINE DEPENDENCE, CIGARETTES, UNCOMPL 07/10/2019 CESAR PATTON DO Ot F41. 9 ANXIETY DISORDER, UNSPECIFIED 07/10/2019 [facility] PARASOMNIA, UNSPECIFIED 07/10/2019 PATTON CESAR HDEZ Ot I10 ESSENTIAL (PRIMARY) HYPERTENSION 07/10/2019 [facility]65. 23 OCCLUSION AND STENOSIS OF BILATERAL [place] 07/10/2019 [facility] J44. 9 CHRONIC OBSTRUCTIVE PULMONARY DISEASE, U 07/10/2019 PATTON CESAR HDEZ Ot K21. 9 GASTRO-ESOPHAGEAL REFLUX DISEASE WITHOUT 07/10/2019 [facility] K59. 09 OTHER CONSTIPATION 07/10/2019 [facility] Z68. 42 BODY MASS INDEX (BMI) 45.0-49.9, ADULT 07/10/2019 [facility] Z79.899 OTHER SKILLED NURSING (CURRENT) DRUG THERAPY 07/10/2019 [facility] Z82. 49 FAMILY HX OF ISCHEM HEART DIS AND OTH DI [facility] 3 FAMILY HISTORY OF DIABETES MELLITUS 07/10/2019 [facility] 1 ALLERGY STATUS TO OTHER ANTIBIOTIC AGENT 07/10/2019 PAT[facility] DOCESAR Ot Z88. 2 ALLERGY STATUS TO SULFONAMIDES STATUS 07/10/2019 [facility]. 5 ALLERGY STATUS TO NARCOTIC AGENT STATUS 07/10/2019 [facility] Z90.710 ACQUIRED ABSENCE OF BOTH CERVIX AND UTER 07/10/2019 [place] CESAR Ot Z90. 89 ACQUIRED ABSENCE OF OTHER ORGANS 07/10/2019 [facility] Z91.030 BEE ALLERGY STATUS 07/10/2019 [facility]99. 89 DEPENDENCE ON OTHER ENABLING MACHINES AN 07/12/2019 CESAR PAT[place] DO Ot D17. 79 BENIGN LIPOMATOUS NEOPLASM OF OTHER SITE 07/12/2019 [facility] CESAR HDEZ Ot E66. 01 MORBID (SEVERE) OBESITY DUE TO EXCESS CA 07/12/2019 CESAR PATTON DO Ot E78. 5 HYPERLIPIDEMIA, UNSPECIFIED 07/12/2019 CESAR PATTON DO Ot F17.210 NICOTINE DEPENDENCE, CIGARETTES, UNCOMPL 07/12/2019 [facility] F41. 9 ANXIETY DISORDER, UNSPECIFIED 07/12/2019 [facility] G47. 50 PARASOMNIA, UNSPECIFIED 07/12/2019 [facility] I10 ESSENTIAL (PRIMARY) HYPERTENSION 07/12/2019 [facility] I65. 23 OCCLUSION AND STENOSIS OF BILATERAL [place] 07/12/2019 [facility] J44. 9 CHRONIC OBSTRUCTIVE PULMONARY DISEASE, U 07/12/2019 [facility] DOCESAR Ot K21. 9 GASTRO-ESOPHAGEAL REFLUX DISEASE WITHOUT 07/12/2019 [facility] K59. 09 OTHER CONSTIPATION 07/12/2019 [place] DOCESAR Ot Z68. 42 BODY MASS INDEX (BMI) 45.0-49.9, ADULT 07/12/2019 [facility] Z79.899 OTHER SKILLED NURSING (CURRENT) DRUG THERAPY 07/12/2019 [facility] Z82. 49 FAMILY HX OF ISCHEM HEART DIS AND OTH DI 07/12/2019 [facility]83. 3 FAMILY HISTORY OF DIABETES MELLITUS 07/12/2019 [facility]. 1 ALLERGY STATUS TO OTHER ANTIBIOTIC AGENT 07/12/2019 [facility]88. 2 ALLERGY STATUS TO SULFONAMIDES STATUS 07/12/2019 [facility]88. 5 ALLERGY STATUS TO NARCOTIC AGENT STATUS 07/12/2019 [facility] Z90.710 ACQUIRED ABSENCE OF BOTH CERVIX AND UTER 07/12/2019 [facility] Z90. 89 ACQUIRED ABSENCE OF OTHER ORGANS 07/12/2019 [facility] Z91.030 BEE ALLERGY STATUS 07/12/2019 [facility] Z99. 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 07/15/2019 RYAN JONES MD Ot 788.3 0 UNSPECIFIED URINARY INCONTINENCE 07/15/2019 RYAN JONES MD Ot V72.8 4 EXAM PRE-OPERATIVE NOS 07/15/2019 KAREN ESCOTO, RYAN Moeller Ot V74.8 SCREEN-BACTERIAL DIS NEC 07/15/2019 GELLENDER DO, MORAIMA Moeller Ot 719.46 JOINT PAIN-L/LEG 07/15/2019 [facility] MOR[facility]AM Moeller Ot 724.2 LUMBAGO 07/15/2019 [facility], MORAIMA Moeller Ot 959.7 LOWER LEG INJURY NOS 07/15/2019 [facility], MORAIMA Moeller Ot E000.8 OTHER EXTERNAL CAUSE STATUS 07/15/2019 [facility], MORAIMA Moeller Ot E849.0 ACCIDENT IN HOME 07/15/2019 [facility], MORAIMA Moeller Ot E888.9 FALL NOS 07/15/2019 [facility], MORAIMA Moeller Ot 789.01 ABDOMINAL PAIN, RIGHT UPPER QUADRANT 07/15/2019 [facility], MORAIMA Moeller Ot 575.8 DIS OF GALLBLADDER NEC 07/15/2019 RUFINA ESCOTO, NARAYAN Marr Ot 575.8 DIS OF GALLBLADDER NEC 07/15/2019 RUFINA ESCOTO, NARAYAN Marr Ot V72.63 PRE-PROCEDURAL LABORATORY EXAMINATION 07/15/2019 RUFINA ESCOTO, NARAYAN Marr Ot V72.81 PSVG-DWA-KPHQEPLLK CARDIOVASCULAR 07/15/2019 RUFINA ESCOTO, NARAYAN Marr Ot V74.8 SCREEN-BACTERIAL DIS NEC 07/15/2019 NESS ESCOTO, SOSA Shelby Ot 715.31 LOC OSTEOARTH NOS-SHLDER 07/15/2019 SOSA GUSMAN MD Ot 727.61 ROTATOR CUFF RUPTURE 07/15/2019 SOSA GUSMAN MD Ot 840.7 (SLAP) SUPERIOR GLENOID LABRUM LESIONS 07/15/2019 SOSA GUSMAN MD Ot V72.83 EXAM PRE-OPERATIVE NEC 07/15/2019 Ot G56.02 CAR PAL TUNNEL SYNDROME, LEFT UPPER LIMB 07/15/2019 Ot Z01.818 EN COUNTER FOR OTHER PREPROCEDURAL EXAMIN 07/15/2019 Ot Z11.2 ENCO UNTER FOR SCREENING FOR OTHER BACTER 07/15/2019 RASHEED RAHMAN Ot Z12.31 ENCNTR SCREEN MAMMOGRAM FOR MALIGNANT NE 07/15/2019 MORAIMA NOEL DO Ot Z13.89 ENCOUNTER FOR SCREENING FOR OTHER DISORD 07/15/2019 SOSA GUSMAN MD Ot G56.01 CARPAL TUNNEL SYNDROME, RIGHT UPPER LIMB 07/15/2019 SOSA GUSMAN MD Ot Z01.818 ENCOUNTER FOR OTHER PREPROCEDURAL EXAMIN 07/15/2019 MORAIMA NOEL DO Ot J40 BRONCHITIS, NOT SPECIFIED ACUTE OR CH 07/15/2019 [facility] Ot J44.9 CHRONIC OBSTRUCTIVE PULMONARY DISEASE, U 07/15/2019 [facility] DO Ot N39.0 URINARY TRACT INFECTION, SITE NOT SPECIF 07/15/2019 DINO TILLMAN Ot R22. 31 LOCALIZED SWELLING, MASS AND LUMP, RIGHT 07/15/2019 RASHEED RAHMAN Ot Z12.31 ENCNTR SCREEN MAMMOGRAM FOR MALIGNANT NE 07/15/2019 SOSA GUSMAN MD Ot M75.121 COMPLETE ROTATR-CUFF TEAR/RUPTR OF R JOSSY 07/15/2019 MEDARDO DUFFY MD Ot Z51. 81 ENCOUNTER FOR THERAPEUTIC DRUG LEVEL MON 07/15/2019 MEDARDO DUFFY MD Ot Z79.899 OTHER BLENDER CONVEYOR OPERATOR (CURRENT) DRUG THERAPY 07/15/2019 MEDARDO DUFFY MD Ot Z12. 31 ENCNTR SCREEN MAMMOGRAM FOR MALIGNANT NE 07/15/2019 JEN SANTIAGO MD Ot M25.81 1 OTHER SPECIFIED JOINT DISORDERS, RIGHT S 07/15/2019 JOSEE ESCOTO FACC, ALI FACP CCDS Ot E78.4 OTHER HYPERLIPIDEMIA 07/15/2019 JOSEE ESCOTO FACC, ALI FACP CCDS Ot I10 ESSENTIAL (PRIMARY) HYPERTENSION 07/15/2019 JOSEE ESCOTO FACC, ALI FACP CCDS Ot J43.8 OTHER EMPHYSEMA 07/15/2019 JOSEE ESCOTO FACC, ALI FACP CCDS Ot R06.02 SHORTNESS OF BREATH 07/15/2019 JOSEE ESCOTO [facility], [facility] FACP CCDS Ot Z72.0 TOBACCO USE 07/15/2019 SOSA RESENDIZ MD Ot 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 07/15/2019 SOSA RESENDIZ MD Ot T65.222D TOXIC EFFECT OF TOBACCO CIGARETTES, SELF 07/15/2019 SOSA RESENDIZ MD Ot 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 07/15/2019 SOSA RESENDIZ MD Ot T65.222D TOXIC EFFECT OF TOBACCO CIGARETTES, SELF 07/15/2019 BAIMA, COURTNEY L ASSOCIATE OF SCIENCE IN NURSING Ot E78.4 OTHER HYPERLIPIDEMIA 07/15/2019 BAIMA, COURTNEY L ASSOCIATE OF SCIENCE IN NURSING Ot F17.200 NICOTINE DEPENDENCE, UNSPECIFIED, UNCOMP 07/15/2019 BAIMA, COURTNEY L ASSOCIATE OF SCIENCE IN NURSING Ot I 10 ESSENTIAL (PRIMARY) HYPERTENSION 07/15/2019 BAIMA, COURTNEY L ASSOCIATE OF SCIENCE IN NURSING Ot 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 07/15/2019 BAIMA, COURTNEY L ASSOCIATE OF SCIENCE IN NURSING Ot E78.2 MIXED HYPERLIPIDEMIA 07/15/2019 BAIMA, COURTNEY L ASSOCIATE OF SCIENCE IN NURSING Ot I 10 ESSENTIAL (PRIMARY) HYPERTENSION 07/15/2019 BAIMA, COURTNEY L ASSOCIATE OF SCIENCE IN NURSING Ot I65.23 OCCLUSION AND STENOSIS OF BILATERAL [place] 07/15/2019 BAIMA, COURTNEY L ASSOCIATE OF SCIENCE IN NURSING Ot 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 07/15/2019 BAIMA, COURTNEY L ASSOCIATE OF SCIENCE IN NURSING Ot R06.00 DYSPNEA, UNSPECIFIED 07/15/2019 BAIMA, COURTNEY L ASSOCIATE OF SCIENCE IN NURSING Ot R60.0 LOCALIZED EDEMA 07/15/2019 BAIMA, COURTNEY L ASSOCIATE OF SCIENCE IN NURSING Ot E78.2 MIXED HYPERLIPIDEMIA 07/15/2019 BAIMA, COURTNEY L ASSOCIATE OF SCIENCE IN NURSING Ot I 10 ESSENTIAL (PRIMARY) HYPERTENSION 07/15/2019 BAIMA, COURTNEY L ASSOCIATE OF SCIENCE IN NURSING Ot I65.23 OCCLUSION AND STENOSIS OF BILATERAL [place] 07/15/2019 BAIMA, COURTNEY L ASSOCIATE OF SCIENCE IN NURSING Ot 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 07/15/2019 BAIMA, COURTNEY L ASSOCIATE OF SCIENCE IN NURSING Ot R06.09 OTHER FORMS OF DYSPNEA 07/15/2019 BAIMA, COURTNEY L ASSOCIATE OF SCIENCE IN NURSING Ot R60.0 LOCALIZED EDEMA 07/15/2019 SAKINA PARRA RETAIL BUSINESS MANAGER Ot Z12.31 ENCNTR SCREEN MAMMOGRAM FOR MALIGNANT NE 07/15/2019 LEANNA VILLA RETAIL BUSINESS MANAGER Ot E66.09 OTHER OBESITY DUE TO EXCESS CALORIES 07/15/2019 YA VILLAINE Arvin RETAIL BUSINESS MANAGER Ot G47.50 PARASOMNIA, UNSPECIFIED 07/15/2019 YA VILLAINE E RETAIL BUSINESS MANAGER Ot J44.9 CHRONIC OBSTRUCTIVE PULMONARY DISEASE, U 07/15/2019 LEANNA VILLA RETAIL BUSINESS MANAGER Ot R29.818 OTHER SYMPTOMS AND SIGNS INVOLVING THE N 07/15/2019 LEANNA VILLA RETAIL BUSINESS MANAGER Ot R91.8 OTHER NONSPECIFIC ABNORMAL FINDING OF LISA 07/15/2019 LEANNA VILLA RETAIL BUSINESS MANAGER Ot Z72.0 TOBACCO USE 07/15/2019 LEANNA VILLA RETAIL BUSINESS MANAGER Ot E66.09 OTHER OBESITY DUE TO EXCESS CALORIES 07/15/2019 LEANNA VILLA RETAIL BUSINESS MANAGER Ot G47.10 HYPERSOMNIA, UNSPECIFIED 07/15/2019 LEANNA VILLA RETAIL BUSINESS MANAGER Ot G47.50 PARASOMNIA, UNSPECIFIED 07/15/2019 LEANNA VILLA RETAIL BUSINESS MANAGER Ot J43.8 OTHER EMPHYSEMA 07/15/2019 LEANNA VILLA RETAIL BUSINESS MANAGER Ot R06.02 SHORTNESS OF BREATH 07/15/2019 LEANNA VILLA RETAIL BUSINESS MANAGER Ot Z72.0 TOBACCO USE 07/15/2019 Ot E66.9 OBES ITY, UNSPECIFIED 07/15/2019 Ot G47.10 HYP ERSOMNIA, UNSPECIFIED 07/15/2019 Ot G47.33 OBS TRUCTIVE SLEEP APNEA (ADULT) (PEDIATR 07/15/2019 Ot G47.50 PAR ASOMNIA, UNSPECIFIED 07/15/2019 Ot 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 OBSTRUCTIVE PULMONARY DISEASE, U 07/15/2019 Ot R06.02 JOSSY RTNESS OF BREATH 07/15/2019 Ot Z68.42 BOD Y MASS INDEX (BMI) 45.0-49.9, ADULT 07/15/2019 Ot Z72.0 TOBA INDUSTRIAL SWEEPER CLEANER USE 07/15/2019 LEANNA VILLA RETAIL BUSINESS MANAGER Ot E66.09 OTHER OBESITY DUE TO EXCESS CALORIES 07/15/2019 LEANNA VILLA RETAIL BUSINESS MANAGER Ot G47.10 HYPERSOMNIA, UNSPECIFIED 07/15/2019 DAISY, LEANNA E RETAIL BUSINESS MANAGER Ot G47.33 OBSTRUCTIVE SLEEP APNEA (ADULT) (PEDIATR 07/15/2019 DAISY, LEANNA E RETAIL BUSINESS MANAGER Ot G47.50 PARASOMNIA, UNSPECIFIED 07/15/2019 YA VILLAINE Arvin RETAIL BUSINESS MANAGER Ot J44.9 CHRONIC OBSTRUCTIVE PULMONARY DISEASE, U 07/15/2019 YA VILLAINE E RETAIL BUSINESS MANAGER Ot R91.1 SOLITARY PULMONARY NODULE 07/15/2019 LEANNA VILLA RETAIL BUSINESS MANAGER Ot Z72.0 TOBACCO USE 07/15/2019 THOMAS JENNINGS Ot K44.9 DIAPHRAGMATIC HERNIA WITHOUT OBSTRUCTION 07/15/2019 LEANNA VILLA RETAIL BUSINESS MANAGER Ot E66.9 OBESITY, UNSPECIFIED 07/15/2019 YA VILLAINE E RETAIL BUSINESS MANAGER Ot G47.10 HYPERSOMNIA, UNSPECIFIED 07/15/2019 YA VILLAINE E RETAIL BUSINESS MANAGER Ot G47.33 OBSTRUCTIVE SLEEP APNEA (ADULT) (PEDIATR 07/15/2019 LEANNA VILLA E RETAIL BUSINESS MANAGER Ot G47.50 PARASOMNIA, UNSPECIFIED 07/15/2019 LEANNA VILLA RETAIL BUSINESS MANAGER Ot J44.9 CHRONIC OBSTRUCTIVE PULMONARY DISEASE, U 07/15/2019 LEANNA VILLA RETAIL BUSINESS MANAGER Ot R06.02 SHORTNESS OF BREATH 07/15/2019 LEANNA VILLA RETAIL BUSINESS MANAGER Ot Z68.42 BODY MASS INDEX (BMI) 45.0-49.9, ADULT 07/15/2019 LEANNA VILLA RETAIL BUSINESS MANAGER Ot Z72.0 TOBACCO USE 07/15/2019 CARL ESCOTO, SOSA Shelby Ot R07 .0 PAIN IN THROAT 07/15/2019 CARL ESCOTO, SOSA Shelby Ot R09.89 OTH SYMPTOMS AND SIGNS INVOLVING THE CIR 07/15/2019 YA VILLAINE Arvin RETAIL BUSINESS MANAGER Ot J44.9 CHRONIC OBSTRUCTIVE PULMONARY DISEASE, U 07/15/2019 YA VILLAINE Arvin RETAIL BUSINESS MANAGER Ot M48.54XA COLLAPSED VERTEBRA, NEC, THORACIC REGION 07/15/2019 YA VILLAINE E RETAIL BUSINESS MANAGER Ot M51.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, 07/15/2019 YA VILLAINE E RETAIL BUSINESS MANAGER Ot R91.8 OTHER NONSPECIFIC ABNORMAL FINDING OF LISA 07/15/2019 LEANNA VILLA RETAIL BUSINESS MANAGER Ot Z72.0 TOBACCO USE 07/15/2019 MARTÍN ESCOTO, SOSA Tellez Ot E66.01 MORBID (SEVERE) OBESITY DUE TO EXCESS CA 07/15/2019 SOSA RESENDIZ MD Ot F17.218 NICOTINE DEPENDENCE, CIGARETTES, W OTH D 07/15/2019 SOSA RESENDIZ MD Ot I87.323 CHRONIC VENOUS HTN W INFLAMMATION OF TAYLOR 07/15/2019 SOSA RESENDIZ MD Ot T65.222A TOXIC EFFECT OF TOBACCO CIGARETTES, SELF 08/14/2019 SOSA GUSMAN MD Ot 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 PATELLAE 08/14/2019 SOSA GUSMAN MD Ot V72.84 EXAM PRE-OPERATIVE NOS 08/14/2019 NESS ESCOTO, SOSA Shelby Ot V74.8 SCREEN-BACTERIAL DIS NEC 08/14/2019 SOSA GUSMAN MD Ot 727.61 ROTATOR CUFF RUPTURE 08/14/2019 RYAN JONES MD Ot 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 08/14/2019 RYAN JONES MD Ot 788.3 0 UNSPECIFIED URINARY INCONTINENCE 08/14/2019 RYAN JONES MD Ot V72.8 4 EXAM PRE-OPERATIVE NOS 08/14/2019 RYAN JONES MD Ot V74.8 SCREEN-BACTERIAL DIS NEC 08/14/2019 GELLENDER DO, MORAIMA Moeller Ot 719.46 JOINT PAIN-L/LEG 08/14/2019 GELLENDER DO, MORAIMA Moeller Ot 724.2 LUMBAGO 08/14/2019 GELLENDER DO, MORAIMA Moeller Ot 959.7 LOWER LEG INJURY NOS 08/14/2019 GELLENDER DO, MORAIMA Moeller Ot E000.8 OTHER EXTERNAL CAUSE STATUS 08/14/2019 GELLENDER DOMORAIMA Ot E849.0 ACCIDENT IN HOME 08/14/2019 GELLENDER DO, MORAIMA Moeller Ot E888.9 FALL NOS 08/14/2019 GELLENDER DO, MORAIMA Moeller Ot 789.01 ABDOMINAL PAIN, RIGHT UPPER QUADRANT 08/14/2019 GELLENDER DO, MORAIMA Moeller Ot 575.8 DIS OF GALLBLADDER NEC 08/14/2019 RUFINA ESCOTO, NARAYAN Marr Ot 575.8 DIS OF GALLBLADDER NEC 08/14/2019 RUFINA ESCOTO, NARAYAN Marr Ot V72.63 PRE-PROCEDURAL LABORATORY EXAMINATION 08/14/2019 RUFINA ESCOTO, NARAYAN Marr Ot V72.81 WRWS-HPI-IHLYTRKLD CARDIOVASCULAR 08/14/2019 RUFINA ESCOTO, NARAYAN Marr Ot V74.8 SCREEN-BACTERIAL DIS NEC 08/14/2019 NESS ESCOTO, SOSA Shelby Ot 715.31 LOC OSTEOARTH NOS-SHLDER 08/14/2019 SOSA GUSMAN MD Ot 727.61 ROTATOR CUFF RUPTURE 08/14/2019 SOSA GUSMAN MD Ot 840.7 (SLAP) SUPERIOR GLENOID LABRUM LESIONS 08/14/2019 SOSA GUSMAN MD Ot V72.83 EXAM PRE-OPERATIVE NEC 08/14/2019 Ot G56.02 CAR PAL TUNNEL SYNDROME, LEFT UPPER LIMB 08/14/2019 Ot Z01.818 EN COUNTER FOR OTHER PREPROCEDURAL EXAMIN 08/14/2019 Ot Z11.2 ENCO UNTER FOR SCREENING FOR OTHER BACTER 08/14/2019 RASHEED RAHAMN Ot Z12.31 ENCNTR SCREEN MAMMOGRAM FOR MALIGNANT NE 08/14/2019 MORAIMA NOEL DO Ot Z13.89 ENCOUNTER FOR SCREENING FOR OTHER DISORD 08/14/2019 SOSA GUSMAN MD Ot G56.01 CARPAL TUNNEL SYNDROME, RIGHT UPPER LIMB 08/14/2019 SOSA GUSMAN MD Ot Z01.818 ENCOUNTER FOR OTHER PREPROCEDURAL EXAMIN 08/14/2019 BERT DOMORAIMA Ot J40 BRONCHITIS, NOT SPECIFIED ACUTE OR CH 08/14/2019 MAXIMUSDER DOMORAIMA Ot J44.9 CHRONIC OBSTRUCTIVE PULMONARY DISEASE, U 08/14/2019 TRAVISLENDER DOMORAIMA Ot N39.0 URINARY TRACT INFECTION, SITE NOT SPECIF 08/14/2019 DINO TILLMAN Ot R22. 31 LOCALIZED SWELLING, MASS AND LUMP, RIGHT 08/14/2019 RASHEED RAHMAN Ot Z12.31 ENCNTR SCREEN MAMMOGRAM FOR MALIGNANT NE 08/14/2019 SOSA GUSMAN MD Ot M75.121 COMPLETE ROTATR-CUFF TEAR/RUPTR OF R JOSSY 08/14/2019 MEDARDO DUFFY MD Ot Z51. 81 ENCOUNTER FOR THERAPEUTIC DRUG LEVEL MON 08/14/2019 MEDARDO DUFFY MD Ot Z79.899 OTHER BLENDER CONVEYOR OPERATOR (CURRENT) DRUG THERAPY 08/14/2019 MEDARDO DUFFY MD Ot Z12. 31 ENCNTR SCREEN MAMMOGRAM FOR MALIGNANT NE 08/14/2019 JEN SANTIAGO MD Ot M25.81 1 OTHER SPECIFIED JOINT DISORDERS, RIGHT S 08/14/2019 JOSEE ESCOTO [facility], ALI FACP CCDS Ot E78.4 OTHER HYPERLIPIDEMIA 08/14/2019 JOSEE ESCOTO [facility], ALI FACP CCDS Ot I10 ESSENTIAL (PRIMARY) HYPERTENSION 08/14/2019 JOSEE ESCOTO [facility], ALI FACP CCDS Ot J43.8 OTHER EMPHYSEMA 08/14/2019 JOSEE ESCOTO [facility], ALI FACP CCDS Ot R06.02 SHORTNESS OF BREATH 08/14/2019 JOSEE ESCOTO [facility], ALI FACP CCDS Ot Z72.0 TOBACCO USE 08/14/2019 SOSA RESENDIZ MD Ot 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 08/14/2019 SOSA RESENDIZ MD Ot T65.222D TOXIC EFFECT OF TOBACCO CIGARETTES, SELF 08/14/2019 SOSA RESENDIZ MD Ot 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 08/14/2019 SOSA RESENDIZ MD Ot T65.222D TOXIC EFFECT OF TOBACCO CIGARETTES, SELF 08/14/2019 BAIMA, COURTNEY L ASSOCIATE OF SCIENCE IN NURSING Ot E78.4 OTHER HYPERLIPIDEMIA 08/14/2019 BAIMA, COURTNEY L ASSOCIATE OF SCIENCE IN NURSING Ot F17.200 NICOTINE DEPENDENCE, UNSPECIFIED, UNCOMP 08/14/2019 BAIMA, COURTNEY L ASSOCIATE OF SCIENCE IN NURSING Ot I 10 ESSENTIAL (PRIMARY) HYPERTENSION 08/14/2019 BAIMA, COURTNEY L ASSOCIATE OF SCIENCE IN NURSING Ot 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 08/14/2019 BAIMA, COURTNEY L ASSOCIATE OF SCIENCE IN NURSING Ot E78.2 MIXED HYPERLIPIDEMIA 08/14/2019 BAIMA, COURTNEY L ASSOCIATE OF SCIENCE IN NURSING Ot I 10 ESSENTIAL (PRIMARY) HYPERTENSION 08/14/2019 BAIMA, COURTNEY L ASSOCIATE OF SCIENCE IN NURSING Ot I65.23 OCCLUSION AND STENOSIS OF BILATERAL [place] 08/14/2019 BAIMA, COURTNEY L ASSOCIATE OF SCIENCE IN NURSING Ot 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 08/14/2019 BAIMA, COURTNEY L ASSOCIATE OF SCIENCE IN NURSING Ot R06.00 DYSPNEA, UNSPECIFIED 08/14/2019 BAIMA, COURTNEY L ASSOCIATE OF SCIENCE IN NURSING Ot R60.0 LOCALIZED EDEMA 08/14/2019 BAIMA, COURTNEY L ASSOCIATE OF SCIENCE IN NURSING Ot E78.2 MIXED HYPERLIPIDEMIA 08/14/2019 BAIMA, COURTNEY L ASSOCIATE OF SCIENCE IN NURSING Ot I 10 ESSENTIAL (PRIMARY) HYPERTENSION 08/14/2019 COURTNEY HONG ASSOCIATE OF SCIENCE IN NURSING Ot I65.23 OCCLUSION AND STENOSIS OF BIL[place]AL [place] 08/14/2019 COURTNEY HONG ASSOCIATE OF SCIENCE IN NURSING Ot 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 08/14/2019 COURTNEY HONG ASSOCIATE OF SCIENCE IN NURSING Ot R06.09 OTHER FORMS OF DYSPNEA 08/14/2019 RUTHIECOURTNEY MOSS ASSOCIATE OF SCIENCE IN NURSING Ot R60.0 LOCALIZED EDEMA 08/14/2019 SAKINA PARRA RETAIL BUSINESS MANAGER Ot Z12.31 ENCNTR SCREEN MAMMOGRAM FOR MALIGNANT NE 08/14/2019 DAISY LEANNA E RETAIL BUSINESS MANAGER Ot E66.09 OTHER OBESITY DUE TO EXCESS CALORIES 08/14/2019 DAISY LEANNA E RETAIL BUSINESS MANAGER Ot G47.50 PARASOMNIA, UNSPECIFIED 08/14/2019 DAISY LEANNA E RETAIL BUSINESS MANAGER Ot J44.9 CHRONIC OBSTRUCTIVE PULMONARY DISEASE, U 08/14/2019 YA VILLAINE Arvin RETAIL BUSINESS MANAGER Ot R29.818 OTHER SYMPTOMS AND SIGNS INVOLVING THE N 08/14/2019 YA VILLAINE Arvin RETAIL BUSINESS MANAGER Ot R91.8 OTHER NONSPECIFIC ABNORMAL FINDING OF LISA 08/14/2019 YA VILLAINE Arvin RETAIL BUSINESS MANAGER Ot Z72.0 TOBACCO USE 08/14/2019 DAISY LEANNA E RETAIL BUSINESS MANAGER Ot E66.09 OTHER OBESITY DUE TO EXCESS CALORIES 08/14/2019 DAISY LEANNA E RETAIL BUSINESS MANAGER Ot G47.10 HYPERSOMNIA, UNSPECIFIED 08/14/2019 DAISY LEANNA E RETAIL BUSINESS MANAGER Ot G47.50 PARASOMNIA, UNSPECIFIED 08/14/2019 DAISY LEANNA E RETAIL BUSINESS MANAGER Ot J43.8 OTHER EMPHYSEMA 08/14/2019 DAISY LEANNA E RETAIL BUSINESS MANAGER Ot R06.02 SHORTNESS OF BREATH 08/14/2019 DAISY LEANNA E RETAIL BUSINESS MANAGER Ot Z72.0 TOBACCO USE 08/14/2019 Ot E66.9 OBES ITY, UNSPECIFIED 08/14/2019 Ot G47.10 HYP ERSOMNIA, UNSPECIFIED 08/14/2019 Ot G47.33 OBS TRUCTIVE SLEEP APNEA (ADULT) (PEDIATR 08/14/2019 Ot G47.50 PAR ASOMNIA, UNSPECIFIED 08/14/2019 Ot 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 OBSTRUCTIVE PULMONARY DISEASE, U 08/14/2019 Ot R06.02 JOSSY RTNESS OF BREATH 08/14/2019 Ot Z68.42 BOD Y MASS INDEX (BMI) 45.0-49.9, ADULT 08/14/2019 Ot Z72.0 TOBA INDUSTRIAL SWEEPER CLEANER USE 08/14/2019 LEANNA VILLA RETAIL BUSINESS MANAGER Ot E66.09 OTHER OBESITY DUE TO EXCESS CALORIES 08/14/2019 LEANNA VILLA E RETAIL BUSINESS MANAGER Ot G47.10 HYPERSOMNIA, UNSPECIFIED 08/14/2019 LEANNA VILLA E RETAIL BUSINESS MANAGER Ot G47.33 OBSTRUCTIVE SLEEP APNEA (ADULT) (PEDIATR 08/14/2019 YA VILLAINE E RETAIL BUSINESS MANAGER Ot G47.50 PARASOMNIA, UNSPECIFIED 08/14/2019 LEANNA VILLA RETAIL BUSINESS MANAGER Ot J44.9 CHRONIC OBSTRUCTIVE PULMONARY DISEASE, U 08/14/2019 LEANNA VILLA RETAIL BUSINESS MANAGER Ot R91.1 SOLITARY PULMONARY NODULE 08/14/2019 LEANNA VILLA RETAIL BUSINESS MANAGER Ot Z72.0 TOBACCO USE 08/14/2019 THOMAS JENNINGS Ot K44.9 DIAPHRAGMATIC HERNIA WITHOUT OBSTRUCTION 08/14/2019 LEANNA VILLA RETAIL BUSINESS MANAGER Ot E66.9 OBESITY, UNSPECIFIED 08/14/2019 LEANNA VILLA E RETAIL BUSINESS MANAGER Ot G47.10 HYPERSOMNIA, UNSPECIFIED 08/14/2019 LEANNA VILLA E RETAIL BUSINESS MANAGER Ot G47.33 OBSTRUCTIVE SLEEP APNEA (ADULT) (PEDIATR 08/14/2019 LEANNA VILLA E RETAIL BUSINESS MANAGER Ot G47.50 PARASOMNIA, UNSPECIFIED 08/14/2019 LEANNA VILLA E RETAIL BUSINESS MANAGER Ot J44.9 CHRONIC OBSTRUCTIVE PULMONARY DISEASE, U 08/14/2019 LEANNA VILLA RETAIL BUSINESS MANAGER Ot R06.02 SHORTNESS OF BREATH 08/14/2019 LEANNA VILLA RETAIL BUSINESS MANAGER Ot Z68.42 BODY MASS INDEX (BMI) 45.0-49.9, ADULT 08/14/2019 LEANNA VILLA RETAIL BUSINESS MANAGER Ot Z72.0 TOBACCO USE 08/14/2019 SOSA HENRY MD Ot R07 .0 PAIN IN THROAT 08/14/2019 SOSA HENRY MD Ot R09.89 OTH SYMPTOMS AND SIGNS INVOLVING THE CIR 08/14/2019 LEANNA VILLA RETAIL BUSINESS MANAGER Ot J44.9 CHRONIC OBSTRUCTIVE PULMONARY DISEASE, U 08/14/2019 LEANNA VILLA RETAIL BUSINESS MANAGER Ot M48.54XA COLLAPSED VERTEBRA, NEC, THORACIC REGION 08/14/2019 LEANNA VILLA RETAIL BUSINESS MANAGER Ot M51.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, 08/14/2019 LEANNA VILLA APRN Ot R91.8 OTHER NONSPECIFIC ABNORMAL FINDING OF LISA 08/14/2019 LEANNA VILLA APRN Ot Z72.0 TOBACCO USE 08/14/2019 SOSA RESENDIZ MD Ot E66.01 MORBID (SEVERE) OBESITY DUE TO EXCESS CA 08/14/2019 SOSA RESENDIZ MD Ot F17.218 NICOTINE DEPENDENCE, CIGARETTES, W OTH D 08/14/2019 SOSA RESENDIZ MD Ot I87.323 CHRONIC VENOUS HTN W INFLAMMATION OF TAYLOR 08/14/2019 SOSA RESENDIZ MD Ot T65.222A TOXIC EFFECT OF TOBACCO CIGARETTES, SELF 08/19/2019 LEANNA VILLA APRN Ot E66.9 OBESITY, UNSPECIFIED 08/19/2019 LEANNA VILLA APRN Ot G47.10 HYPERSOMNIA, UNSPECIFIED 08/19/2019 LEANNA VILLA APRN Ot G47.33 OBSTRUCTIVE SLEEP APNEA (ADULT) (PEDIATR 08/19/2019 LEANNA VILLA APRN Ot G47.50 PARASOMNIA, UNSPECIFIED 08/19/2019 LEANNA VILLA APRN Ot J44.9 CHRONIC OBSTRUCTIVE PULMONARY DISEASE, U 08/19/2019 LEANNA VILLA APRN Ot R06.02 SHORTNESS OF BREATH 08/19/2019 LEANNA VILLA RETAIL BUSINESS MANAGER Ot Z68.42 BODY MASS INDEX (BMI) 45.0-49.9, ADULT 08/19/2019 LEANNA VILLA APRN Ot Z72.0 TOBACCO USE 08/19/2019 RYAN JONES MD Ot Z01.8 18 ENCOUNTER FOR OTHER PREPROCEDURAL EXAMIN 08/26/2019 SOSA GUSMAN MD Ot 727.61 ROTATOR CUFF RUPTURE 08/26/2019 RYAN JONES MD Ot 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 08/26/2019 RYAN JONES MD Ot 788.3 0 UNSPECIFIED URINARY INCONTINENCE 08/26/2019 RYAN JONES MD Ot V72.8 4 EXAM PRE-OPERATIVE NOS 08/26/2019 KAREN MD, RYAN A Ot V74.8 SCREEN-BACTERIAL DIS NEC 08/26/2019 TRAVISLENDER DO, MORAIMA Moeller Ot 719.46 JOINT PAIN-L/LEG 08/26/2019 [facility] MORAIMA Moeller Ot 724.2 LUMBAGO 08/26/2019 [facility], MORAIMA Moeller Ot 959.7 LOWER LEG INJURY NOS 08/26/2019 MAXIMUSDER DO, MORAIMA Moeller Ot E000.8 OTHER EXTERNAL CAUSE STATUS 08/26/2019 [facility] MORAIMA Moeller Ot E849.0 ACCIDENT IN HOME 08/26/2019 [facility], MORAIMA Moeller Ot E888.9 FALL NOS 08/26/2019 [facility], MORAIMA Moeller Ot 789.01 ABDOMINAL PAIN, RIGHT UPPER QUADRANT 08/26/2019 [facility], MORAIMA Moeller Ot 575.8 DIS OF GALLBLADDER NEC 08/26/2019 RUFINA ESCOTO, NARAYAN Marr Ot 575.8 DIS OF GALLBLADDER NEC 08/26/2019 RUFINA ESCOTO, NARAYAN Marr Ot V72.63 PRE-PROCEDURAL LABORATORY EXAMINATION 08/26/2019 RUFINA ESCOTO, NARAYAN Marr Ot V72.81 [id number] CARDIOVASCULAR 08/26/2019 RUFINA ESCOTO, NARAYAN Marr Ot V74.8 SCREEN-BACTERIAL DIS NEC 08/26/2019 NESS ESCOTO, SOSA Shelby Ot 715.31 LOC OSTEOARTH NOS-SHLDER 08/26/2019 NESS ESCOTO, SOSA Shelby Ot 727.61 ROTATOR CUFF RUPTURE 08/26/2019 NESS ESCOTO, SOSA Shelby Ot 840.7 (SLAP) SUPERIOR GLENOID LABRUM LESIONS 08/26/2019 NESS ESCOTO, SOSA Shelby Ot V72.83 EXAM PRE-OPERATIVE NEC 08/26/2019 Ot G56.02 CAR PAL TUNNEL SYNDROME, LEFT UPPER LIMB 08/26/2019 Ot Z01.818 EN COUNTER FOR OTHER PREPROCEDURAL EXAMIN 08/26/2019 Ot Z11.2 ENCO UNTER FOR SCREENING FOR OTHER BACTER 08/26/2019 RASHEED RAHMAN Ot Z12.31 ENCNTR SCREEN MAMMOGRAM FOR MALIGNANT NE 08/26/2019 [facility], MORAIMA Moeller Ot Z13.89 ENCOUNTER FOR SCREENING FOR OTHER DISORD 08/26/2019 NESS ESCOTO, SOSA Shelby Ot G56.01 CARPAL TUNNEL SYNDROME, RIGHT UPPER LIMB 08/26/2019 SOSA GUSMAN MD Ot Z01.818 ENCOUNTER FOR OTHER PREPROCEDURAL EXAMIN 08/26/2019 MORAIMA NOEL DO Ot J40 BRONCHITIS, NOT SPECIFIED ACUTE OR CH 08/26/2019 MORAIMA NOEL DO Ot J44.9 CHRONIC OBSTRUCTIVE PULMONARY DISEASE, U 08/26/2019 MORAIMA NOEL DO Ot N39.0 URINARY TRACT INFECTION, SITE NOT SPECIF 08/26/2019 PRIMO DINO Radu FIELDS Ot R22. 31 LOCALIZED SWELLING, MASS AND LUMP, RIGHT 08/26/2019 RASHEED RAHMAN Ot Z12.31 ENCNTR SCREEN MAMMOGRAM FOR MALIGNANT NE 08/26/2019 SOSA GUSMAN MD Ot M75.121 COMPLETE ROTATR-CUFF TEAR/RUPTR OF R JOSSY 08/26/2019 MEDARDO DUFFY MD Ot Z51. 81 ENCOUNTER FOR THERAPEUTIC DRUG LEVEL MON 08/26/2019 MEDARDO DUFFY MD Ot Z79.899 OTHER SKILLED NURSING (CURRENT) DRUG THERAPY 08/26/2019 MEDARDO DUFFY MD Ot Z12. 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 08/26/2019 SOSA RESENDIZ MD Ot T65.222D TOXIC EFFECT OF TOBACCO CIGARETTES, SELF 08/26/2019 SOSA RESENDIZ MD Ot 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 08/26/2019 SOSA RESENDIZ MD Ot T65.222D TOXIC EFFECT OF TOBACCO CIGARETTES, SELF 08/26/2019 BAIMA, COURTNEY L ASSOCIATE OF SCIENCE IN NURSING Ot E78.4 OTHER HYPERLIPIDEMIA 08/26/2019 BAIMA, COURTNEY L ASSOCIATE OF SCIENCE IN NURSING Ot F17.200 NICOTINE DEPENDENCE, UNSPECIFIED, UNCOMP 08/26/2019 BAIMA, COURTNEY L ASSOCIATE OF SCIENCE IN NURSING Ot I 10 ESSENTIAL (PRIMARY) HYPERTENSION 08/26/2019 BAIMA, COURTNEY L ASSOCIATE OF SCIENCE IN NURSING Ot 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 [facility] 08/26/2019 BAIMA, COURTNEY L ASSOCIATE OF SCIENCE IN NURSING Ot E78.2 MIXED HYPERLIPIDEMIA 08/26/2019 BAIMA, COURTNEY L ASSOCIATE OF SCIENCE IN NURSING Ot I 10 ESSENTIAL (PRIMARY) HYPERTENSION 08/26/2019 BAIMA, COURTNEY L ASSOCIATE OF SCIENCE IN NURSING Ot I65.23 OCCLUSION AND STENOSIS OF [place] 08/26/2019 BAIMA, COURTNEY L ASSOCIATE OF SCIENCE IN NURSING Ot 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 [facility] 08/26/2019 BAIMA, COURTNEY L ASSOCIATE OF SCIENCE IN NURSING Ot R06.00 DYSPNEA, UNSPECIFIED 08/26/2019 BAIMA, COURTNEY L ASSOCIATE OF SCIENCE IN NURSING Ot R60.0 LOCALIZED EDEMA 08/26/2019 BAIMA, COURTNEY L ASSOCIATE OF SCIENCE IN NURSING Ot E78.2 MIXED HYPERLIPIDEMIA 08/26/2019 BAIMA, COURTNEY L ASSOCIATE OF SCIENCE IN NURSING Ot I 10 ESSENTIAL (PRIMARY) HYPERTENSION 08/26/2019 BAIMA, COURTNEY L ASSOCIATE OF SCIENCE IN NURSING Ot I65.23 OCCLUSION AND STENOSIS OF [place] 08/26/2019 BAIMA, COURTNEY L ASSOCIATE OF SCIENCE IN NURSING Ot 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 08/26/2019 BAIMA, COURTNEY L ASSOCIATE OF SCIENCE IN NURSING Ot R06.09 OTHER FORMS OF DYSPNEA 08/26/2019 BAIMA, COURTNEY L ASSOCIATE OF SCIENCE IN NURSING Ot R60.0 LOCALIZED EDEMA 08/26/2019 SAKINA PARRA RETAIL BUSINESS MANAGER Ot Z12.31 ENCNTR SCREEN MAMMOGRAM FOR MALIGNANT NE 08/26/2019 LEANNA VILLA APRN Ot E66.09 OTHER OBESITY DUE TO EXCESS CALORIES 08/26/2019 LEANNA VILLA APRN Ot G47.50 PARASOMNIA, UNSPECIFIED 08/26/2019 ELANNA VILLA RETAIL BUSINESS MANAGER Ot J44.9 CHRONIC OBSTRUCTIVE PULMONARY DISEASE, U 08/26/2019 LEANNA VILLA APRN Ot R29.818 OTHER SYMPTOMS AND SIGNS INVOLVING THE N 08/26/2019 DAISY, LEANNA E RETAIL BUSINESS MANAGER Ot R91.8 OTHER NONSPECIFIC ABNORMAL FINDING OF LISA 08/26/2019 LEANNA VILLA RETAIL BUSINESS MANAGER Ot Z72.0 TOBACCO USE 08/26/2019 LEANNA VILLA RETAIL BUSINESS MANAGER Ot E66.09 OTHER OBESITY DUE TO EXCESS CALORIES 08/26/2019 YA VILLAINE E RETAIL BUSINESS MANAGER Ot G47.10 HYPERSOMNIA, UNSPECIFIED 08/26/2019 YA VILLAINE E RETAIL BUSINESS MANAGER Ot G47.50 PARASOMNIA, UNSPECIFIED 08/26/2019 LEANNA VILLA E RETAIL BUSINESS MANAGER Ot J43.8 OTHER EMPHYSEMA 08/26/2019 LEANNA VILLA E RETAIL BUSINESS MANAGER Ot R06.02 SHORTNESS OF BREATH 08/26/2019 LEANNA VILLA RETAIL BUSINESS MANAGER Ot Z72.0 TOBACCO USE 08/26/2019 Ot E66.9 OBES ITY, UNSPECIFIED 08/26/2019 Ot G47.10 HYP ERSOMNIA, UNSPECIFIED 08/26/2019 Ot G47.33 OBS TRUCTIVE SLEEP APNEA (ADULT) (PEDIATR 08/26/2019 Ot G47.50 PAR ASOMNIA, UNSPECIFIED 08/26/2019 Ot 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 OBSTRUCTIVE PULMONARY DISEASE, U 08/26/2019 Ot R06.02 JOSSY RTNESS OF BREATH 08/26/2019 Ot Z68.42 BOD Y MASS INDEX (BMI) 45.0-49.9, ADULT 08/26/2019 Ot Z72.0 TOBA INDUSTRIAL SWEEPER CLEANER USE 08/26/2019 LEANNA VILLA RETAIL BUSINESS MANAGER Ot E66.09 OTHER OBESITY DUE TO EXCESS CALORIES 08/26/2019 LEANNA VILLA RETAIL BUSINESS MANAGER Ot G47.10 HYPERSOMNIA, UNSPECIFIED 08/26/2019 LEANNA VILLA RETAIL BUSINESS MANAGER Ot G47.33 OBSTRUCTIVE SLEEP APNEA (ADULT) (PEDIATR 08/26/2019 LEANNA VILLA RETAIL BUSINESS MANAGER Ot G47.50 PARASOMNIA, UNSPECIFIED 08/26/2019 LEANNA VILLA RETAIL BUSINESS MANAGER Ot J44.9 CHRONIC OBSTRUCTIVE PULMONARY DISEASE, U 08/26/2019 LEANNA VILLA RETAIL BUSINESS MANAGER Ot R91.1 SOLITARY PULMONARY NODULE 08/26/2019 LEANNA VILLA RETAIL BUSINESS MANAGER Ot Z72.0 TOBACCO USE 08/26/2019 THOMAS JENNINGS Ot K44.9 DIAPHRAGMATIC HERNIA WITHOUT OBSTRUCTION 08/26/2019 LEANNA VILLA RETAIL BUSINESS MANAGER Ot E66.9 OBESITY, UNSPECIFIED 08/26/2019 LEANNA VILLA RETAIL BUSINESS MANAGER Ot G47.10 HYPERSOMNIA, UNSPECIFIED 08/26/2019 LEANNA VILLA RETAIL BUSINESS MANAGER Ot G47.33 OBSTRUCTIVE SLEEP APNEA (ADULT) (PEDIATR 08/26/2019 LEANNA VILLA RETAIL BUSINESS MANAGER Ot G47.50 PARASOMNIA, UNSPECIFIED 08/26/2019 LEANNA VILLA RETAIL BUSINESS MANAGER Ot J44.9 CHRONIC OBSTRUCTIVE PULMONARY DISEASE, U 08/26/2019 LEANNA VILLA RETAIL BUSINESS MANAGER Ot R06.02 SHORTNESS OF BREATH 08/26/2019 LEANNA VILLA RETAIL BUSINESS MANAGER Ot Z68.42 BODY MASS INDEX (BMI) 45.0-49.9, ADULT 08/26/2019 LEANNA VILLA RETAIL BUSINESS MANAGER Ot Z72.0 TOBACCO USE 08/26/2019 CARL ESCOTO, SOSA Shelby Ot R07 .0 PAIN IN THROAT 08/26/2019 CARL ESCOTO, SOSA Shelby Ot R09.89 OTH SYMPTOMS AND SIGNS INVOLVING THE CIR 08/26/2019 LEANNA VILLA APRN Ot J44.9 CHRONIC OBSTRUCTIVE PULMONARY DISEASE, U 08/26/2019 LEANNA VILLA RETAIL BUSINESS MANAGER Ot M48.54XA COLLAPSED VERTEBRA, NEC, THORACIC REGION 08/26/2019 LEANNA VILLA RETAIL BUSINESS MANAGER Ot M51.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, 08/26/2019 LEANNA VILLA RETAIL BUSINESS MANAGER Ot R91.8 OTHER NONSPECIFIC ABNORMAL FINDING OF LISA 08/26/2019 LEANNA VILLA RETAIL BUSINESS MANAGER Ot Z72.0 TOBACCO USE 08/26/2019 SOSA RESENDIZ MD Ot E66.01 MORBID (SEVERE) OBESITY DUE TO EXCESS CA 08/26/2019 SOSA RESENDIZ MD Ot F17.218 NICOTINE DEPENDENCE, CIGARETTES, W OTH D 08/26/2019 SOSA RESENDIZ MD Ot I87.323 CHRONIC VENOUS HTN W INFLAMMATION OF [place] 08/26/2019 SOSA RESENDIZ MD Ot T65.222A TOXIC EFFECT OF TOBACCO CIGARETTES, SELF 08/26/2019 RYAN JONES MD Ot F17.2 10 NICOTINE DEPENDENCE, CIGARETTES, UNCOMPL 08/26/2019 RYAN JONES MD Ot G47.3 3 OBSTRUCTIVE SLEEP APNEA (ADULT) (PEDIATR 08/26/2019 RYAN JONES MD Ot I10 ESSENTIAL (PRIMARY) HYPERTENSION 08/26/2019 RYAN JONES MD Ot I25.1 0 ATHSCL HEART DISEASE OF [place] CORONARY 08/26/2019 RYAN JONES MD, Ot J44.9 CHRONIC OBSTRUCTIVE PULMONARY DISEASE, U 08/26/2019 RYAN JONES MD, Ot K21.9 GASTRO-ESOPHAGEAL REFLUX DISEASE WITHOUT 08/26/2019 RYAN JONES MD Ot M19.9 1 PRIMARY OSTEOARTHRITIS, UNSPECIFIED SITE 08/26/2019 RYAN JONES MD Ot N32.8 1 OVERACTIVE BLADDER 08/26/2019 RYAN JONES MD Ot N39.4 1 URGE INCONTINENCE 08/26/2019 RYAN JONES MD Ot Z11.2 ENCOUNTER FOR SCREENING FOR OTHER BACTER 08/26/2019 RYAN JONES MD Ot Z79.8 99 OTHER BLENDER CONVEYOR OPERATOR (CURRENT) DRUG THERAPY 08/26/2019 RYAN JONES MD, Ot Z88.2 ALLERGY STATUS TO SULFONAMIDES STATUS 08/26/2019 RYAN JONES MD Ot Z88.5 ALLERGY STATUS TO NARCOTIC AGENT STATUS 08/26/2019 RYAN JONES MD Ot Z96.6 51 PRESENCE OF RIGHT ARTIFICIAL KNEE JOINT 08/26/2019 RYAN JONES MD Ot Z99.8 1 DEPENDENCE ON SUPPLEMENTAL OXYGEN 08/27/2019 RYAN JONES MD Ot F17.2 10 NICOTINE DEPENDENCE, CIGARETTES, UNCOMPL 08/27/2019 RYAN JONES MD Ot G47.3 3 OBSTRUCTIVE SLEEP APNEA (ADULT) (PEDIATR 08/27/2019 RYAN JONES MD Ot I10 ESSENTIAL (PRIMARY) HYPERTENSION 08/27/2019 RYAN JONES MD, Ot I25.1 0 ATHSCL HEART DISEASE OF [place] CORONARY 08/27/2019 RYAN JONES MD Ot J44.9 CHRONIC OBSTRUCTIVE PULMONARY DISEASE, U 08/27/2019 RYAN JONES MD Ot K21.9 GASTRO-ESOPHAGEAL REFLUX DISEASE WITHOUT 08/27/2019 RYAN JONES MD Ot M19.9 1 PRIMARY OSTEOARTHRITIS, UNSPECIFIED SITE 08/27/2019 RYAN JONES MD Ot N32.8 1 OVERACTIVE BLADDER 08/27/2019 RYAN JONES MD Ot N39.4 1 URGE INCONTINENCE 08/27/2019 RYAN JONES MD Ot Z11.2 ENCOUNTER FOR SCREENING FOR OTHER BACTER 08/27/2019 RYAN JONES MD Ot Z79.8 99 OTHER SKILLED NURSING (CURRENT) DRUG THERAPY 08/27/2019 RYAN JONES MD Ot Z88.2 ALLERGY STATUS TO SULFONAMIDES STATUS 08/27/2019 RYAN JONES MD Ot Z88.5 ALLERGY STATUS TO NARCOTIC AGENT STATUS 08/27/2019 RYAN JONES MD Ot Z96.6 51 PRESENCE OF RIGHT ARTIFICIAL KNEE JOINT 08/27/2019 RYAN JONES MD Ot Z99.8 1 DEPENDENCE ON SUPPLEMENTAL OXYGEN 11/18/2019 LEANNA VILLA APRN Ot F17.210 NICOTINE DEPENDENCE, CIGARETTES, UNCOMPL 11/18/2019 LEANNA VILLA RETAIL BUSINESS MANAGER Ot J30.9 ALLERGIC RHINITIS, UNSPECIFIED 11/18/2019 LEANNA VILLA RETAIL BUSINESS MANAGER Ot J44.1 CHRONIC OBSTRUCTIVE PULMONARY DISEASE W 11/18/2019 LEANNA VILLA RETAIL BUSINESS MANAGER Ot R92.8 OTH ABN AND INCONCLUSIVE FINDINGS ON DX 11/18/2019 LEANNA VILLA RETAIL BUSINESS MANAGER Ot S22.049A UNSP FRACTURE OF FOURTH THORACIC VERTEBR 11/28/2019 LEANNA VILLA APRN Ot F17.210 NICOTINE DEPENDENCE, CIGARETTES, UNCOMPL 11/28/2019 LEANNA VILLA RETAIL BUSINESS MANAGER Ot J30.9 ALLERGIC RHINITIS, UNSPECIFIED 11/28/2019 LEANNA VILLA RETAIL BUSINESS MANAGER Ot J44.1 CHRONIC OBSTRUCTIVE PULMONARY DISEASE W 11/28/2019 LEANNA VILLA RETAIL BUSINESS MANAGER Ot R92.8 OTH ABN AND INCONCLUSIVE FINDINGS ON DX 11/28/2019 LEANNA VILLA RETAIL BUSINESS MANAGER Ot S22.049A UNSP FRACTURE OF FOURTH THORACIC VERTEBR 12/08/2019 JOSEE ESCOTO FACC, ALI FACP CCDS Ot G47.33 OBSTRUCTIVE SLEEP APNEA (ADULT) (PEDIATR 12/08/2019 JOSEE ESCOTO FACC, ALI FACP CCDS Ot I77.89 OTHER SPECIFIED DISORDERS OF ARTERIES AN 12/08/2019 JOSEE ESCOTO FACC, ALI FACP CCDS Ot J44.9 CHRONIC OBSTRUCTIVE PULMONARY DISEASE, U 12/08/2019 JO[facility] ESCOTO [facility] Z72.0 TOBACCO USE 12/10/2019 JOSEE ESCOTO [facility] Ot G47.33 OBSTRUCTIVE SLEEP APNEA (ADULT) (PEDIATR 12/10/2019 JOSEE ESCOTO [facility], [facility] CCDS Ot I77.89 OTHER SPECIFIED DISORDERS OF ARTERIES AN 12/10/2019 JOSEE ESCOTO [facility], [facility] Ot J44.9 CHRONIC OBSTRUCTIVE PULMONARY DISEASE, U 12/10/2019 JOSEE ESCOTO [facility], [facility] CCDS Ot Z72.0 TOBACCO USE 12/18/2019 TIRO CESAR HDEZ Ot R10. 30 LOWER ABDOMINAL PAIN, UNSPECIFIED 12/18/2019 TIRO DOCESAR Ot R19. 4 CHANGE IN BOWEL HABIT [facility] ENCOUNTER FOR PREPROCEDURAL LABORATORY E 12/18/2019 [facility].828 CONTACT W AND EXPOSURE TO OTH VIRAL COMM 12/23/2019 NESS ESCOTO, SOSA Shelby Ot 727.61 ROTATOR CUFF RUPTURE 12/23/2019 RYAN JONES MD Ot 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 12/23/2019 RYAN JONES MD Ot 788.3 0 UNSPECIFIED URINARY INCONTINENCE 12/23/2019 RYAN JONES MD Ot V72.8 4 EXAM PRE-OPERATIVE NOS 12/23/2019 RYAN JONES MD Ot V74.8 SCREEN-BACTERIAL DIS NEC 12/23/2019 GELLENDER DOMORAIMA Ot 719.46 JOINT PAIN-L/LEG 12/23/2019 GELLENDER DOMORAIMA Ot 724.2 LUMBAGO 12/23/2019 GELLENDER DOMORAIMA Ot 959.7 LOWER LEG INJURY NOS 12/23/2019 GELLENDER DOMORAIMA Ot E000.8 OTHER EXTERNAL CAUSE STATUS 12/23/2019 GELLENDER DOMORAIMA Ot E849.0 ACCIDENT IN HOME 12/23/2019 GELLENDER DOMORAIMA Ot E888.9 FALL NOS 12/23/2019 GELLENDER DOMORAIMA Ot 789.01 ABDOMINAL PAIN, RIGHT UPPER QUADRANT 12/23/2019 GELLENDER DOMORAIMA Ot 575.8 DIS OF GALLBLADDER NEC 12/23/2019 RUFINA ESCOTO, NARAYAN Marr Ot 575.8 DIS OF GALLBLADDER NEC 12/23/2019 RUFINA ESCOTO, NARAYAN Marr Ot V72.63 PRE-PROCEDURAL LABORATORY EXAMINATION 12/23/2019 RUFINA ESCOTO, NARAYAN Marr Ot V72.81 [id number] CARDIOVASCULAR 12/23/2019 RUFINA ECSOTO, NARAYAN Marr Ot V74.8 SCREEN-BACTERIAL DIS NEC 12/23/2019 NESS ESCOTO, SOSA Shelby Ot 715.31 LOC OSTEOARTH NOS-SHLDER 12/23/2019 NESS ESCOTO, SOSA Shelby Ot 727.61 ROTATOR CUFF RUPTURE 12/23/2019 NESS ESCOTO, SOSA Shelby Ot 840.7 (SLAP) SUPERIOR GLENOID LABRUM LESIONS 12/23/2019 NESS ESCOTO, SOSA Shelby Ot V72.83 EXAM PRE-OPERATIVE NEC 12/23/2019 Ot G56.02 CAR PAL TUNNEL SYNDROME, LEFT UPPER LIMB 12/23/2019 Ot Z01.818 EN COUNTER FOR OTHER PREPROCEDURAL EXAMIN 12/23/2019 Ot Z11.2 ENCO UNTER FOR SCREENING FOR OTHER BACTER 12/23/2019 RASHEED RAHMAN Ot Z12.31 ENCNTR SCREEN MAMMOGRAM FOR MALIGNANT NE 12/23/2019 MORAIMA NOEL DO Ot Z13.89 ENCOUNTER FOR SCREENING FOR OTHER DISORD 12/23/2019 NESS ESCOTO, SOSA Shelby Ot G56.01 CARPAL TUNNEL SYNDROME, RIGHT UPPER LIMB 12/23/2019 NESS ESCOTO, SOSA Shelby Ot Z01.818 ENCOUNTER FOR OTHER PREPROCEDURAL EXAMIN 12/23/2019 MORAIMA NOEL DO Ot J40 BRONCHITIS, NOT SPECIFIED ACUTE OR CH 12/23/2019 BERT DOMORAIMA Ot J44.9 CHRONIC OBSTRUCTIVE PULMONARY DISEASE, U 12/23/2019 GELLENDER DOMORAIMA Ot N39.0 URINARY TRACT INFECTION, SITE NOT SPECIF 12/23/2019 DINO TILLMAN Ot R22. 31 LOCALIZED SWELLING, MASS AND LUMP, RIGHT 12/23/2019 RASHEED RAHMAN Ot Z12.31 ENCNTR SCREEN MAMMOGRAM FOR MALIGNANT NE 12/23/2019 NESS ESCOTO, SOSA Shelby Ot M75.121 COMPLETE ROTATR-CUFF TEAR/RUPTR OF R JOSSY 12/23/2019 MEDARDO DUFFY MD Ot Z51. 81 ENCOUNTER FOR THERAPEUTIC DRUG LEVEL MON 12/23/2019 MEDARDO DUFFY MD Ot Z79.899 OTHER SKILLED NURSING (CURRENT) DRUG THERAPY 12/23/2019 MEDARDO DUFFY MD Ot Z12. 31 ENCNTR SCREEN MAMMOGRAM FOR MALIGNANT NE 12/23/2019 PAMELA ESCOTO, JEN Zhong Ot M25.81 1 OTHER SPECIFIED JOINT DISORDERS, RIGHT S 12/23/2019 JOSEE ESCOTO FAC, ALI FACP CCDS Ot E78.4 OTHER HYPERLIPIDEMIA 12/23/2019 JOSEE ESCOTO FACC, ALI FACP CCDS Ot I10 ESSENTIAL (PRIMARY) HYPERTENSION 12/23/2019 JOSEE ESCOTO FACC, ALI FACP CCDS Ot J43.8 OTHER EMPHYSEMA 12/23/2019 JOSEE ESCOTO FACC, ALI FACP CCDS Ot R06.02 SHORTNESS OF BREATH 12/23/2019 JOSEE ESCOTO FACC, ALI FACP CCDS Ot Z72.0 TOBACCO USE 12/23/2019 SOSA RESENDIZ MD Ot 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 12/23/2019 SOSA RESENDIZ MD Ot T65.222D TOXIC EFFECT OF TOBACCO CIGARETTES, SELF 12/23/2019 SOSA RESENDIZ MD Ot 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 12/23/2019 SOSA RESENDIZ MD Ot T65.222D TOXIC EFFECT OF TOBACCO CIGARETTES, SELF 12/23/2019 BAIMA, COURTNEY L ASSOCIATE OF SCIENCE IN NURSING Ot E78.4 OTHER HYPERLIPIDEMIA 12/23/2019 BAIMA, COURTNEY L ASSOCIATE OF SCIENCE IN NURSING Ot F17.200 NICOTINE DEPENDENCE, UNSPECIFIED, UNCOMP 12/23/2019 BAIMA, COURTNEY L ASSOCIATE OF SCIENCE IN NURSING Ot I 10 ESSENTIAL (PRIMARY) HYPERTENSION 12/23/2019 BAIMA, COURTNEY L ASSOCIATE OF SCIENCE IN NURSING Ot 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 12/23/2019 BAIMA, COURTNEY L ASSOCIATE OF SCIENCE IN NURSING Ot E78.2 MIXED HYPERLIPIDEMIA 12/23/2019 BAIMA, COURTNEY L ASSOCIATE OF SCIENCE IN NURSING Ot I 10 ESSENTIAL (PRIMARY) HYPERTENSION 12/23/2019 BAIMA, COURTNEY L ASSOCIATE OF SCIENCE IN NURSING Ot I65.23 OCCLUSION AND STENOSIS OF [place]AL [place] 12/23/2019 BAIMA, COURTNEY L ASSOCIATE OF SCIENCE IN NURSING Ot 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 12/23/2019 BAIMA, COURTNEY L ASSOCIATE OF SCIENCE IN NURSING Ot R06.00 DYSPNEA, UNSPECIFIED 12/23/2019 BAIMA, COURTNEY L ASSOCIATE OF SCIENCE IN NURSING Ot R60.0 LOCALIZED EDEMA 12/23/2019 BAIMA, COURTNEY L ASSOCIATE OF SCIENCE IN NURSING Ot E78.2 MIXED HYPERLIPIDEMIA 12/23/2019 BAIMA, COURTNEY L ASSOCIATE OF SCIENCE IN NURSING Ot I 10 ESSENTIAL (PRIMARY) HYPERTENSION 12/23/2019 BAIMA, COURTNEY L ASSOCIATE OF SCIENCE IN NURSING Ot I65.23 OCCLUSION AND STENOSIS OF [place]AL [place] 12/23/2019 BAIMA, COURTNEY L ASSOCIATE OF SCIENCE IN NURSING Ot 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 12/23/2019 BAIMA, COURTNEY L ASSOCIATE OF SCIENCE IN NURSING Ot R06.09 OTHER FORMS OF DYSPNEA 12/23/2019 BAIMA, COURTNEY L ASSOCIATE OF SCIENCE IN NURSING Ot R60.0 LOCALIZED EDEMA 12/23/2019 SAKINA PARRA RETAIL BUSINESS MANAGER Ot Z12.31 ENCNTR SCREEN MAMMOGRAM FOR MALIGNANT NE 12/23/2019 LEANNA VILLA RETAIL BUSINESS MANAGER Ot E66.09 OTHER OBESITY DUE TO EXCESS CALORIES 12/23/2019 LEANNA VILLA RETAIL BUSINESS MANAGER Ot G47.50 PARASOMNIA, UNSPECIFIED 12/23/2019 LEANNA VILLA RETAIL BUSINESS MANAGER Ot J44.9 CHRONIC OBSTRUCTIVE PULMONARY DISEASE, U 12/23/2019 LEANNA VILLA RETAIL BUSINESS MANAGER Ot R29.818 OTHER SYMPTOMS AND SIGNS INVOLVING THE N 12/23/2019 LEANNA VILLA RETAIL BUSINESS MANAGER Ot R91.8 OTHER NONSPECIFIC ABNORMAL FINDING OF LISA 12/23/2019 LEANNA VILLA RETAIL BUSINESS MANAGER Ot Z72.0 TOBACCO USE 12/23/2019 LEANNA VILLA RETAIL BUSINESS MANAGER Ot E66.09 OTHER OBESITY DUE TO EXCESS CALORIES 12/23/2019 LEANNA VILLA RETAIL BUSINESS MANAGER Ot G47.10 HYPERSOMNIA, UNSPECIFIED 12/23/2019 LEANNA VILLA RETAIL BUSINESS MANAGER Ot G47.50 PARASOMNIA, UNSPECIFIED 12/23/2019 LEANNA VILLA RETAIL BUSINESS MANAGER Ot J43.8 OTHER EMPHYSEMA 12/23/2019 ELANNA VILLA RETAIL BUSINESS MANAGER Ot R06.02 SHORTNESS OF BREATH 12/23/2019 LEANNA VILLA RETAIL BUSINESS MANAGER Ot Z72.0 TOBACCO USE 12/23/2019 Ot E66.9 OBES ITY, UNSPECIFIED 12/23/2019 Ot G47.10 HYP ERSOMNIA, UNSPECIFIED 12/23/2019 Ot G47.33 OBS TRUCTIVE SLEEP APNEA (ADULT) (PEDIATR 12/23/2019 Ot G47.50 PAR ASOMNIA, UNSPECIFIED 12/23/2019 Ot 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 OBSTRUCTIVE PULMONARY DISEASE, U 12/23/2019 Ot R06.02 JOSSY RTNESS OF BREATH 12/23/2019 Ot Z68.42 BOD Y MASS INDEX (BMI) 45.0-49.9, ADULT 12/23/2019 Ot Z72.0 TOBA INDUSTRIAL SWEEPER CLEANER USE 12/23/2019 LEANNA VILLA E RETAIL BUSINESS MANAGER Ot E66.09 OTHER OBESITY DUE TO EXCESS CALORIES 12/23/2019 LEANNA VILLA E RETAIL BUSINESS MANAGER Ot G47.10 HYPERSOMNIA, UNSPECIFIED 12/23/2019 DAISY LEANNA E RETAIL BUSINESS MANAGER Ot G47.33 OBSTRUCTIVE SLEEP APNEA (ADULT) (PEDIATR 12/23/2019 LEANNA VILLA E RETAIL BUSINESS MANAGER Ot G47.50 PARASOMNIA, UNSPECIFIED 12/23/2019 LEANNA VILLA E RETAIL BUSINESS MANAGER Ot J44.9 CHRONIC OBSTRUCTIVE PULMONARY DISEASE, U 12/23/2019 YA VILLAINE E RETAIL BUSINESS MANAGER Ot R91.1 SOLITARY PULMONARY NODULE 12/23/2019 LEANNA VILLA RETAIL BUSINESS MANAGER Ot Z72.0 TOBACCO USE 12/23/2019 THOMAS JENNINGS Ot K44.9 DIAPHRAGMATIC HERNIA WITHOUT OBSTRUCTION 12/23/2019 LEANNA VILLA E RETAIL BUSINESS MANAGER Ot E66.9 OBESITY, UNSPECIFIED 12/23/2019 LEANNA VILLA E RETAIL BUSINESS MANAGER Ot G47.10 HYPERSOMNIA, UNSPECIFIED 12/23/2019 LEANNA VILLA E RETAIL BUSINESS MANAGER Ot G47.33 OBSTRUCTIVE SLEEP APNEA (ADULT) (PEDIATR 12/23/2019 LEANNA VILLA E RETAIL BUSINESS MANAGER Ot G47.50 PARASOMNIA, UNSPECIFIED 12/23/2019 YA VILLAINE E RETAIL BUSINESS MANAGER Ot J44.9 CHRONIC OBSTRUCTIVE PULMONARY DISEASE, U 12/23/2019 YA VILLAINE E RETAIL BUSINESS MANAGER Ot R06.02 SHORTNESS OF BREATH 12/23/2019 LEANNA VILLA E RETAIL BUSINESS MANAGER Ot Z68.42 BODY MASS INDEX (BMI) 45.0-49.9, ADULT 12/23/2019 LEANNA VILLA E RETAIL BUSINESS MANAGER Ot Z72.0 TOBACCO USE 12/23/2019 SOSA HENRY MD Ot R07 .0 PAIN IN THROAT 12/23/2019 SOSA HENRY MD Ot R09.89 OTH SYMPTOMS AND SIGNS INVOLVING THE CIR 12/23/2019 LEANNA VILLA APRN Ot J44.9 CHRONIC OBSTRUCTIVE PULMONARY DISEASE, U 12/23/2019 LEANNA VILLA APRN Ot M48.54XA COLLAPSED VERTEBRA, NEC, THORACIC REGION 12/23/2019 LEANNA VILLA APRN Ot M51.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, 12/23/2019 LEANNA VILLA APRN Ot R91.8 OTHER NONSPECIFIC ABNORMAL FINDING OF LISA 12/23/2019 LEANNA VILLA APRN Ot Z72.0 TOBACCO USE 12/23/2019 SOSA RESENDIZ MD Ot E66.01 MORBID (SEVERE) OBESITY DUE TO EXCESS CA 12/23/2019 SOSA RESENDIZ MD Ot F17.218 NICOTINE DEPENDENCE, CIGARETTES, W OTH D 12/23/2019 SOSA RESENDIZ MD Ot I87.323 CHRONIC VENOUS HTN W INFLAMMATION OF TAYLOR 12/23/2019 SOSA RESENDIZ MD Ot T65.222A TOXIC EFFECT OF TOBACCO CIGARETTES, SELF 12/23/2019 LEANNA VILLA APRN Ot F17.210 NICOTINE DEPENDENCE, CIGARETTES, UNCOMPL 12/23/2019 LEANNA VILLA APRN Ot J30.9 ALLERGIC RHINITIS, UNSPECIFIED 12/23/2019 LEANNA VILLA APRN Ot J44.1 CHRONIC OBSTRUCTIVE PULMONARY DISEASE W 12/23/2019 LEANNA VILLA APRN Ot R92.8 OTH ABN AND INCONCLUSIVE FINDINGS ON DX 12/23/2019 LEANNA VILLA APRN Ot S22.049A UNSP FRACTURE OF FOURTH THORACIC VERTEBR 12/23/2019 JOSEE ESCOTO FAC, ALI FACP CCDS Ot G47.33 OBSTRUCTIVE SLEEP APNEA (ADULT) (PEDIATR 12/23/2019 JOSEE ESCOTO FACC, ALI FACP CCDS Ot I77.89 OTHER SPECIFIED DISORDERS OF ARTERIES AN 12/23/2019 JOSEE ESCOTO FACC, ALI FACP CCDS Ot J44.9 CHRONIC OBSTRUCTIVE PULMONARY DISEASE, U 12/23/2019 JOSEE ESCOTO FACC, ALI FACP CCDS Ot Z72.0 TOBACCO USE 12/23/2019 CESAR PATTON DO Ot F17.210 NICOTINE DEPENDENCE, CIGARETTES, UNCOMPL 12/23/2019 [facility] OBSTRUCTIVE SLEEP APNEA (ADULT) (PEDIATR 12/23/2019 [facility] G89. 18 OTHER ACUTE POSTPROCEDURAL PAIN 12/23/2019 [facility]10 ESSENTIAL (PRIMARY) HYPERTENSION 12/23/2019 [facility] J44. 9 CHRONIC OBSTRUCTIVE PULMONARY DISEASE, U 12/23/2019 [facility] K21. 9 GASTRO-ESOPHAGEAL REFLUX DISEASE WITHOUT 12/23/2019 [facility] K62. 1 RECTAL POLYP 12/23/2019 [facility] M06. 9 RHEUMATOID ARTHRITIS, UNSPECIFIED 12/23/2019 [facility] M54. 5 LOW BACK PAIN 12/23/2019 [facility] R19. 4 CHANGE IN BOWEL HABIT 12/23/2019 PATTON DOCESAR Ot Z79. 51 BLENDER CONVEYOR OPERATOR (CURRENT) USE OF INHALED STERO 12/23/2019 [facility] Z79.899 OTHER BLENDER CONVEYOR OPERATOR (CURRENT) DRUG THERAPY 12/23/2019 [facility] Z88. 2 ALLERGY STATUS TO SULFONAMIDES STATUS 12/23/2019 [facility] Z88. 5 ALLERGY STATUS TO NARCOTIC AGENT STATUS 12/23/2019 [facility] Z88. 8 ALLERGY STATUS TO OTH DRUG/MEDS/BIOL SUB 12/23/2019 [facility] Z91.030 BEE ALLERGY STATUS 12/26/2019 [facility] F17.210 NICOTINE DEPENDENCE, CIGARETTES, UNCOMPL 12/26/2019 [facility] G47. 33 OBSTRUCTIVE SLEEP APNEA (ADULT) (PEDIATR 12/26/2019 [facility] G89. 18 OTHER ACUTE POSTPROCEDURAL PAIN 12/26/2019 [facility] I10 ESSENTIAL (PRIMARY) HYPERTENSION 12/26/2019 [facility] J44. 9 CHRONIC OBSTRUCTIVE PULMONARY DISEASE, U 12/26/2019 [facility] K21. 9 GASTRO-ESOPHAGEAL REFLUX DISEASE WITHOUT 12/26/2019 [facility] K62. 1 RECTAL POLYP 12/26/2019 [facility] M06. 9 RHEUMATOID ARTHRITIS, UNSPECIFIED 12/26/2019 [facility] M54. 5 LOW BACK PAIN 12/26/2019 [facility] R19. 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 2 ALLERGY STATUS TO SULFONAMIDES STATUS 12/26/2019 [facility] Z88. 5 ALLERGY STATUS TO NARCOTIC AGENT STATUS 12/26/2019 [facility] Z88. 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 12/30/2019 RYAN JONES MD Ot 788.3 0 UNSPECIFIED URINARY INCONTINENCE 12/30/2019 RYAN JONES MD Ot V72.8 4 EXAM PRE-OPERATIVE NOS 12/30/2019 RYAN JONES MD Ot V74.8 SCREEN-BACTERIAL DIS NEC 12/30/2019 MORAIMA NOEL DO Ot 719.46 JOINT PAIN-L/LEG 12/30/2019 MORAIMA NOEL DO Ot 724.2 LUMBAGO 12/30/2019 OMRAIMA NOEL DO Ot 959.7 LOWER LEG INJURY NOS 12/30/2019 BERT HDEZ, MORAIMA Moeller Ot E000.8 OTHER EXTERNAL CAUSE STATUS 12/30/2019 BERT HDEZ, MORAIMA Sunni Ot E849.0 ACCIDENT IN HOME 12/30/2019 BERT HDEZ, MORAIMA Moeller Ot E888.9 FALL NOS 12/30/2019 BERT HDEZ, MORAIMA Sunni Ot 789.01 ABDOMINAL PAIN, RIGHT UPPER QUADRANT 12/30/2019 BERT HDEZ, MORAIMA Moeller Ot 575.8 DIS OF GALLBLADDER NEC 12/30/2019 RUFINA ESCOTO, NARAYAN Marr Ot 575.8 DIS OF GALLBLADDER NEC 12/30/2019 RUFINA ESCOTO, NARAYAN Marr Ot V72.63 PRE-PROCEDURAL LABORATORY EXAMINATION 12/30/2019 RUFINA ESCOTO, NARAYAN Marr Ot V72.81 [id number] CARDIOVASCULAR 12/30/2019 RUFINA ESCOTO, NARAYAN Marr Ot V74.8 SCREEN-BACTERIAL DIS NEC 12/30/2019 NESS ESCOTO, SOSA Shelby Ot 715.31 LOC OSTEOARTH NOS-SHLDER 12/30/2019 NESS ESCOTO, SOSA Shelby Ot 727.61 ROTATOR CUFF RUPTURE 12/30/2019 NESS ESCOTO, SOSA Shelby Ot 840.7 (SLAP) SUPERIOR GLENOID LABRUM LESIONS 12/30/2019 NESS ESCOTO, SOSA Shelby Ot V72.83 EXAM PRE-OPERATIVE NEC 12/30/2019 Ot G56.02 CAR PAL TUNNEL SYNDROME, LEFT UPPER LIMB 12/30/2019 Ot Z01.818 EN COUNTER FOR OTHER PREPROCEDURAL EXAMIN 12/30/2019 Ot Z11.2 ENCO UNTER FOR SCREENING FOR OTHER BACTER 12/30/2019 RASHEED RAHMAN Ot Z12.31 ENCNTR SCREEN MAMMOGRAM FOR MALIGNANT NE 12/30/2019 BERT HDEZ, MORAIMA Moeller Ot Z13.89 ENCOUNTER FOR SCREENING FOR OTHER DISORD 12/30/2019 NESS ESCOTO, SOSA Shelby Ot G56.01 CARPAL TUNNEL SYNDROME, RIGHT UPPER LIMB 12/30/2019 NESS ESCOTO, SOSA Shelby Ot Z01.818 ENCOUNTER FOR OTHER PREPROCEDURAL EXAMIN 12/30/2019 BERT HDEZ, MORAIMA Moeller Ot J40 BRONCHITIS, NOT SPECIFIED ACUTE OR CH 12/30/2019 BERT HDEZ, MORAIMA Moeller Ot J44.9 CHRONIC OBSTRUCTIVE PULMONARY DISEASE, U 12/30/2019 MORAIMA NOEL DO Ot N39.0 URINARY TRACT INFECTION, SITE NOT SPECIF 12/30/2019 DINO TILLMAN ASSOCIATE OF SCIENCE IN NURSING Ot R22. 31 LOCALIZED SWELLING, MASS AND LUMP, RIGHT 12/30/2019 RASHEED RAHMAN DIAMOND Ot Z12.31 ENCNTR SCREEN MAMMOGRAM FOR MALIGNANT NE 12/30/2019 NESS ESCOTO, SOSA Shelby Ot M75.121 COMPLETE ROTATR-CUFF TEAR/RUPTR OF R JOSSY 12/30/2019 CLIVE ESCOTO, MEDARDO Chowdhury Ot Z51. 81 ENCOUNTER FOR THERAPEUTIC DRUG LEVEL MON 12/30/2019 MEDARDO DUFFY MD Ot Z79.899 OTHER SKILLED NURSING (CURRENT) DRUG THERAPY 12/30/2019 MEDARDO DUFFY MD Ot Z12. 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 12/30/2019 SOSA RESENDIZ MD Ot T65.222D TOXIC EFFECT OF TOBACCO CIGARETTES, SELF 12/30/2019 SOSA RESENDIZ MD Ot 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 12/30/2019 SOSA RESENDIZ MD Ot T65.222D TOXIC EFFECT OF TOBACCO CIGARETTES, SELF 12/30/2019 COURTNEY HONG ASSOCIATE OF SCIENCE IN NURSING Ot E78.4 OTHER HYPERLIPIDEMIA 12/30/2019 COURTNEY HONG ASSOCIATE OF SCIENCE IN NURSING Ot F17.200 NICOTINE DEPENDENCE, UNSPECIFIED, UNCOMP 12/30/2019 COURTNEY HONG ASSOCIATE OF SCIENCE IN NURSING Ot I 10 ESSENTIAL (PRIMARY) HYPERTENSION 12/30/2019 BAIMA, COURTNEY L ASSOCIATE OF SCIENCE IN NURSING Ot 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 12/30/2019 BAIMA, COURTNEY L ASSOCIATE OF SCIENCE IN NURSING Ot E78.2 MIXED HYPERLIPIDEMIA 12/30/2019 BAIMA, COURTNEY L ASSOCIATE OF SCIENCE IN NURSING Ot I 10 ESSENTIAL (PRIMARY) HYPERTENSION 12/30/2019 BAIMA, COURTNEY L ASSOCIATE OF SCIENCE IN NURSING Ot I65.23 OCCLUSION AND STENOSIS OF BILATERAL [place] 12/30/2019 BAIMA, COURTNEY L ASSOCIATE OF SCIENCE IN NURSING Ot 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 12/30/2019 BAIMA, COURTNEY L ASSOCIATE OF SCIENCE IN NURSING Ot R06.00 DYSPNEA, UNSPECIFIED 12/30/2019 BAIMA, COURTNEY L ASSOCIATE OF SCIENCE IN NURSING Ot R60.0 LOCALIZED EDEMA 12/30/2019 BAIMA, COURTNEY L ASSOCIATE OF SCIENCE IN NURSING Ot E78.2 MIXED HYPERLIPIDEMIA 12/30/2019 BAIMA, COURTNEY L ASSOCIATE OF SCIENCE IN NURSING Ot I 10 ESSENTIAL (PRIMARY) HYPERTENSION 12/30/2019 BAIMA, COURTNEY L ASSOCIATE OF SCIENCE IN NURSING Ot I65.23 OCCLUSION AND STENOSIS OF BILATERAL [place] 12/30/2019 BAIMA, COURTNEY L ASSOCIATE OF SCIENCE IN NURSING Ot 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 W [facility] 12/30/2019 BAIMA, COURTNEY L ASSOCIATE OF SCIENCE IN NURSING Ot R06.09 OTHER FORMS OF DYSPNEA 12/30/2019 BAIMA, COURTNEY L ASSOCIATE OF SCIENCE IN NURSING Ot R60.0 LOCALIZED EDEMA 12/30/2019 SAKINA PARRA RETAIL BUSINESS MANAGER Ot Z12.31 ENCNTR SCREEN MAMMOGRAM FOR MALIGNANT NE 12/30/2019 LEANNA VILLA APRN Ot E66.09 OTHER OBESITY DUE TO EXCESS CALORIES 12/30/2019 LEANNA VILLA RETAIL BUSINESS MANAGER Ot G47.50 PARASOMNIA, UNSPECIFIED 12/30/2019 LEANNA VILLA RETAIL BUSINESS MANAGER Ot J44.9 CHRONIC OBSTRUCTIVE PULMONARY DISEASE, U 12/30/2019 LEANNA VILLA RETAIL BUSINESS MANAGER Ot R29.818 OTHER SYMPTOMS AND SIGNS INVOLVING THE N 12/30/2019 LEANNA VILLA RETAIL BUSINESS MANAGER Ot R91.8 OTHER NONSPECIFIC ABNORMAL FINDING OF LISA 12/30/2019 LEANNA VILLA RETAIL BUSINESS MANAGER Ot Z72.0 TOBACCO USE 12/30/2019 LEANNA VILLA RETAIL BUSINESS MANAGER Ot E66.09 OTHER OBESITY DUE TO EXCESS CALORIES 12/30/2019 DAISY, LEANNA E RETAIL BUSINESS MANAGER Ot G47.10 HYPERSOMNIA, UNSPECIFIED 12/30/2019 YA VILLAINE E RETAIL BUSINESS MANAGER Ot G47.50 PARASOMNIA, UNSPECIFIED 12/30/2019 LEANNA VILLA E RETAIL BUSINESS MANAGER Ot J43.8 OTHER EMPHYSEMA 12/30/2019 YA VILLAINE E RETAIL BUSINESS MANAGER Ot R06.02 SHORTNESS OF BREATH 12/30/2019 YA VILLAINE E RETAIL BUSINESS MANAGER Ot Z72.0 TOBACCO USE 12/30/2019 Ot E66.9 OBES ITY, UNSPECIFIED 12/30/2019 Ot G47.10 HYP ERSOMNIA, UNSPECIFIED 12/30/2019 Ot G47.33 OBS TRUCTIVE SLEEP APNEA (ADULT) (PEDIATR 12/30/2019 Ot G47.50 PAR ASOMNIA, UNSPECIFIED 12/30/2019 Ot 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 OBSTRUCTIVE PULMONARY DISEASE, U 12/30/2019 Ot R06.02 JOSSY RTNESS OF BREATH 12/30/2019 Ot Z68.42 BOD Y MASS INDEX (BMI) 45.0-49.9, ADULT 12/30/2019 Ot Z72.0 TOBA INDUSTRIAL SWEEPER CLEANER USE 12/30/2019 LEANNA VILLA E RETAIL BUSINESS MANAGER Ot E66.09 OTHER OBESITY DUE TO EXCESS CALORIES 12/30/2019 LEANNA VILLA E RETAIL BUSINESS MANAGER Ot G47.10 HYPERSOMNIA, UNSPECIFIED 12/30/2019 LEANNA VILLA E RETAIL BUSINESS MANAGER Ot G47.33 OBSTRUCTIVE SLEEP APNEA (ADULT) (PEDIATR 12/30/2019 LEANNA VILLA RETAIL BUSINESS MANAGER Ot G47.50 PARASOMNIA, UNSPECIFIED 12/30/2019 LEANNA VILLA RETAIL BUSINESS MANAGER Ot J44.9 CHRONIC OBSTRUCTIVE PULMONARY DISEASE, U 12/30/2019 YA VILLAINE E RETAIL BUSINESS MANAGER Ot R91.1 SOLITARY PULMONARY NODULE 12/30/2019 YA VILLAINE E RETAIL BUSINESS MANAGER Ot Z72.0 TOBACCO USE 12/30/2019 THOMAS JENNINGS Ot K44.9 DIAPHRAGMATIC HERNIA WITHOUT OBSTRUCTION 12/30/2019 LEANNA VILLA RETAIL BUSINESS MANAGER Ot E66.9 OBESITY, UNSPECIFIED 12/30/2019 DAISY LEANNA E RETAIL BUSINESS MANAGER Ot G47.10 HYPERSOMNIA, UNSPECIFIED 12/30/2019 DAISY LEANNA E RETAIL BUSINESS MANAGER Ot G47.33 OBSTRUCTIVE SLEEP APNEA (ADULT) (PEDIATR 12/30/2019 LEANNA VILLA APRN Ot G47.50 PARASOMNIA, UNSPECIFIED 12/30/2019 LEANNA VILLA APRN Ot J44.9 CHRONIC OBSTRUCTIVE PULMONARY DISEASE, U 12/30/2019 LEANNA VILLA APRN Ot R06.02 SHORTNESS OF BREATH 12/30/2019 LEANNA VILLA APRN Ot Z68.42 BODY MASS INDEX (BMI) 45.0-49.9, ADULT 12/30/2019 LEANNA VILLA APRN Ot Z72.0 TOBACCO USE 12/30/2019 SOSA HENRY MD Ot R07 .0 PAIN IN THROAT 12/30/2019 SOSA HENRY MD Ot R09.89 OTH SYMPTOMS AND SIGNS INVOLVING THE CIR 12/30/2019 LEANNA VILLA APRN Ot J44.9 CHRONIC OBSTRUCTIVE PULMONARY DISEASE, U 12/30/2019 LEANNA VILLA APRN Ot M48.54XA COLLAPSED VERTEBRA, NEC, THORACIC REGION 12/30/2019 LEANNA VILLA APRN Ot M51.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, 12/30/2019 LEANNA VILLA APRN Ot R91.8 OTHER NONSPECIFIC ABNORMAL FINDING OF LISA 12/30/2019 LEANNA VILLA APRN Ot Z72.0 TOBACCO USE 12/30/2019 SOSA RESENDIZ MD Ot E66.01 MORBID (SEVERE) OBESITY DUE TO EXCESS CA 12/30/2019 SOSA RESENDIZ MD Ot F17.218 NICOTINE DEPENDENCE, CIGARETTES, W OTH D 12/30/2019 SOSA RESENDIZ MD Ot I87.323 CHRONIC VENOUS HTN W INFLAMMATION OF [place]AYLOR 12/30/2019 SOSA RESENDIZ MD Ot T65.222A TOXIC EFFECT OF TOBACCO CIGARETTES, SELF 12/30/2019 LEANNA VILLA APRN Ot F17.210 NICOTINE DEPENDENCE, CIGARETTES, UNCOMPL 12/30/2019 LEANNA VILLA APRN Ot J30.9 ALLERGIC RHINITIS, UNSPECIFIED 12/30/2019 LEANNA VILLA APRN Ot J44.1 CHRONIC OBSTRUCTIVE PULMONARY DISEASE W 12/30/2019 LEANNA VILLA APRN Ot R92.8 OTH ABN AND INCONCLUSIVE FINDINGS ON DX 12/30/2019 LEANNA VILLA APRN Ot S22.049A UNSP FRACTURE OF FOURTH THORACIC VERTEBR 12/30/2019 JOSEE ESCOTO FACC, ALI FACP CCDS Ot G47.33 OBSTRUCTIVE SLEEP APNEA (ADULT) (PEDIATR 12/30/2019 JOSEE ESCOTO [facility], [facility] CCDS Ot I77.89 OTHER SPECIFIED DISORDERS OF ARTERIES AN 12/30/2019 JOSEE ESCOTO [facility] Ot J44.9 CHRONIC OBSTRUCTIVE PULMONARY DISEASE, U 12/30/2019 JOSEE ESCOTO [facility] Ot Z72.0 TOBACCO USE 12/30/2019 NESS ESCOTO, SOSA Shelby Ot 727.61 ROTATOR CUFF RUPTURE 12/30/2019 RYAN JONES MD Ot 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 12/30/2019 RYAN JONES MD Ot 788.3 0 UNSPECIFIED URINARY INCONTINENCE 12/30/2019 RYAN JONES MD Ot V72.8 4 EXAM PRE-OPERATIVE NOS 12/30/2019 RYAN JONES MD Ot V74.8 SCREEN-BACTERIAL DIS NEC 12/30/2019 GELLENDER DO, MORAIMA Moeller Ot 719.46 JOINT PAIN-L/LEG 12/30/2019 GELLENDER DO, MORAIMA Moeller Ot 724.2 LUMBAGO 12/30/2019 GELLENDER DO, MORAIMA Moeller Ot 959.7 LOWER LEG INJURY NOS 12/30/2019 GELLENDER DO, MORAIMA A Ot E000.8 OTHER EXTERNAL CAUSE STATUS 12/30/2019 GELLENDER DO, MORAIMA A Ot E849.0 ACCIDENT IN HOME 12/30/2019 GELLENDER DO, MORAIMA A Ot E888.9 FALL NOS 12/30/2019 GELLENDER DO, MORAIMA A Ot 789.01 ABDOMINAL PAIN, RIGHT UPPER QUADRANT 12/30/2019 GELLENDER DO, MORAIMA A Ot 575.8 DIS OF GALLBLADDER NEC 12/30/2019 RUFINA ESCOTO, NARAYAN Marr Ot 575.8 DIS OF GALLBLADDER NEC 12/30/2019 RUFINA ESCOTO, NARAYAN Marr Ot V72.63 PRE-PROCEDURAL LABORATORY EXAMINATION 12/30/2019 RUFINA ESCOTO, NARAYAN Marr Ot V72.81 [id number] CARDIOVASCULAR 12/30/2019 RUFINA ESCOTO, NARAYAN Marr Ot V74.8 SCREEN-BACTERIAL DIS NEC 12/30/2019 NESS ESCOTO, SOSA Shelby Ot 715.31 LOC OSTEOARTH NOS-SHLDER 12/30/2019 SOSA GUSMAN MD Ot 727.61 ROTATOR CUFF RUPTURE 12/30/2019 SOSA GUSMAN MD Ot 840.7 (SLAP) SUPERIOR GLENOID LABRUM LESIONS 12/30/2019 SOSA GUSMAN MD Ot V72.83 EXAM PRE-OPERATIVE NEC 12/30/2019 Ot G56.02 CAR PAL TUNNEL SYNDROME, LEFT UPPER LIMB 12/30/2019 Ot Z01.818 EN COUNTER FOR OTHER PREPROCEDURAL EXAMIN 12/30/2019 Ot Z11.2 ENCO UNTER FOR SCREENING FOR OTHER BACTER 12/30/2019 RASHEED RAHMAN Ot Z12.31 ENCNTR SCREEN MAMMOGRAM FOR MALIGNANT NE 12/30/2019 MORAIMA NOEL DO Ot Z13.89 ENCOUNTER FOR SCREENING FOR OTHER DISORD 12/30/2019 SOSA GUSMAN MD Ot G56.01 CARPAL TUNNEL SYNDROME, RIGHT UPPER LIMB 12/30/2019 SOSA GUSMAN MD Ot Z01.818 ENCOUNTER FOR OTHER PREPROCEDURAL EXAMIN 12/30/2019 MORAIMA NOEL DO Ot J40 BRONCHITIS, NOT SPECIFIED ACUTE OR CH 12/30/2019 MORAIMA NOEL DO Ot J44.9 CHRONIC OBSTRUCTIVE PULMONARY DISEASE, U 12/30/2019 MORAIMA NOEL DO Ot N39.0 URINARY TRACT INFECTION, SITE NOT SPECIF 12/30/2019 DINO TILLMAN Ot R22. 31 LOCALIZED SWELLING, MASS AND LUMP, RIGHT 12/30/2019 RASHEED RAHMAN Ot Z12.31 ENCNTR SCREEN MAMMOGRAM FOR MALIGNANT NE 12/30/2019 SOSA GUSMAN MD Ot M75.121 COMPLETE ROTATR-CUFF TEAR/RUPTR OF R JOSSY 12/30/2019 MEDARDO DUFFY MD Ot Z51. 81 ENCOUNTER FOR THERAPEUTIC DRUG LEVEL MON 12/30/2019 MEDARDO DUFFY MD Ot Z79.899 OTHER BLENDER CONVEYOR OPERATOR (CURRENT) DRUG THERAPY 12/30/2019 MEDARDO DUFFY MD Ot Z12. 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 12/30/2019 SOSA RESENDIZ MD Ot T65.222D TOXIC EFFECT OF TOBACCO CIGARETTES, SELF 12/30/2019 SOSA RESENDIZ MD Ot 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 12/30/2019 SOSA RESENDIZ MD Ot T65.222D TOXIC EFFECT OF TOBACCO CIGARETTES, SELF 12/30/2019 BAIMA, COURTNEY L ASSOCIATE OF SCIENCE IN NURSING Ot E78.4 OTHER HYPERLIPIDEMIA 12/30/2019 BAIMA, COURTNEY L ASSOCIATE OF SCIENCE IN NURSING Ot F17.200 NICOTINE DEPENDENCE, UNSPECIFIED, UNCOMP 12/30/2019 BAIMA, COURTNEY L ASSOCIATE OF SCIENCE IN NURSING Ot I 10 ESSENTIAL (PRIMARY) HYPERTENSION 12/30/2019 BAIMA, COURTNEY L ASSOCIATE OF SCIENCE IN NURSING Ot 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 [facility] 12/30/2019 BAIMA, COURTNEY L ASSOCIATE OF SCIENCE IN NURSING Ot E78.2 MIXED HYPERLIPIDEMIA 12/30/2019 BAIMA, COURTNEY L ASSOCIATE OF SCIENCE IN NURSING Ot I 10 ESSENTIAL (PRIMARY) HYPERTENSION 12/30/2019 BAIMA, COURTNEY L ASSOCIATE OF SCIENCE IN NURSING Ot I65.23 OCCLUSION AND STENOSIS OF BILATERAL [place] 12/30/2019 BAIMA, COURTNEY L ASSOCIATE OF SCIENCE IN NURSING Ot 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 [facility] 12/30/2019 BAIMA, COURTNEY L ASSOCIATE OF SCIENCE IN NURSING Ot R06.00 DYSPNEA, UNSPECIFIED 12/30/2019 BAIMA, COURTNEY L ASSOCIATE OF SCIENCE IN NURSING Ot R60.0 LOCALIZED EDEMA 12/30/2019 BAIMA, COURTNEY L ASSOCIATE OF SCIENCE IN NURSING Ot E78.2 MIXED HYPERLIPIDEMIA 12/30/2019 BAIMA, COURTNEY L ASSOCIATE OF SCIENCE IN NURSING Ot I 10 ESSENTIAL (PRIMARY) HYPERTENSION 12/30/2019 BAIMA, COURTNEY L ASSOCIATE OF SCIENCE IN NURSING Ot I65.23 OCCLUSION AND STENOSIS OF BILATERAL [place] 12/30/2019 BAIMA, COURTNEY L ASSOCIATE OF SCIENCE IN NURSING Ot 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 12/30/2019 RUTHIECOURTNEY MOSS ASSOCIATE OF SCIENCE IN NURSING Ot R06.09 OTHER FORMS OF DYSPNEA 12/30/2019 RUTHIECOURTNEY MOSS ASSOCIATE OF SCIENCE IN NURSING Ot R60.0 LOCALIZED EDEMA 12/30/2019 SAKINA PARRA RETAIL BUSINESS MANAGER Ot Z12.31 ENCNTR SCREEN MAMMOGRAM FOR MALIGNANT NE 12/30/2019 LEANNA VILLA RETAIL BUSINESS MANAGER Ot E66.09 OTHER OBESITY DUE TO EXCESS CALORIES 12/30/2019 LEANNA VILLA RETAIL BUSINESS MANAGER Ot G47.50 PARASOMNIA, UNSPECIFIED 12/30/2019 LEANNA VILLA RETAIL BUSINESS MANAGER Ot J44.9 CHRONIC OBSTRUCTIVE PULMONARY DISEASE, U 12/30/2019 LEANNA VILLA RETAIL BUSINESS MANAGER Ot R29.818 OTHER SYMPTOMS AND SIGNS INVOLVING THE N 12/30/2019 LEANNA VILLA RETAIL BUSINESS MANAGER Ot R91.8 OTHER NONSPECIFIC ABNORMAL FINDING OF LISA 12/30/2019 LEANNA VILLA RETAIL BUSINESS MANAGER Ot Z72.0 TOBACCO USE 12/30/2019 LEANNA VILLA RETAIL BUSINESS MANAGER Ot E66.09 OTHER OBESITY DUE TO EXCESS CALORIES 12/30/2019 LEANNA VILLA RETAIL BUSINESS MANAGER Ot G47.10 HYPERSOMNIA, UNSPECIFIED 12/30/2019 LEANNA VLILA RETAIL BUSINESS MANAGER Ot G47.50 PARASOMNIA, UNSPECIFIED 12/30/2019 LEANNA VILLA RETAIL BUSINESS MANAGER Ot J43.8 OTHER EMPHYSEMA 12/30/2019 LEANNA VILLA RETAIL BUSINESS MANAGER Ot R06.02 SHORTNESS OF BREATH 12/30/2019 LEANNA VILLA RETAIL BUSINESS MANAGER Ot Z72.0 TOBACCO USE 12/30/2019 Ot E66.9 OBES ITY, UNSPECIFIED 12/30/2019 Ot G47.10 HYP ERSOMNIA, UNSPECIFIED 12/30/2019 Ot G47.33 OBS TRUCTIVE SLEEP APNEA (ADULT) (PEDIATR 12/30/2019 Ot G47.50 PAR ASOMNIA, UNSPECIFIED 12/30/2019 Ot 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 OBSTRUCTIVE PULMONARY DISEASE, U 12/30/2019 Ot R06.02 JOSSY RTNESS OF BREATH 12/30/2019 Ot Z68.42 BOD Y MASS INDEX (BMI) 45.0-49.9, ADULT 12/30/2019 Ot Z72.0 TOBA INDUSTRIAL SWEEPER CLEANER USE 12/30/2019 LEANNA VILLA RETAIL BUSINESS MANAGER Ot E66.09 OTHER OBESITY DUE TO EXCESS CALORIES 12/30/2019 LEANNA VILLA RETAIL BUSINESS MANAGER Ot G47.10 HYPERSOMNIA, UNSPECIFIED 12/30/2019 LEANNA VILLA E RETAIL BUSINESS MANAGER Ot G47.33 OBSTRUCTIVE SLEEP APNEA (ADULT) (PEDIATR 12/30/2019 LEANNA VILLA E RETAIL BUSINESS MANAGER Ot G47.50 PARASOMNIA, UNSPECIFIED 12/30/2019 LEANNA VILLA E RETAIL BUSINESS MANAGER Ot J44.9 CHRONIC OBSTRUCTIVE PULMONARY DISEASE, U 12/30/2019 LEANNA VILLA RETAIL BUSINESS MANAGER Ot R91.1 SOLITARY PULMONARY NODULE 12/30/2019 LEANNA VILLA RETAIL BUSINESS MANAGER Ot Z72.0 TOBACCO USE 12/30/2019 THOMAS JENNINGS Ot K44.9 DIAPHRAGMATIC HERNIA WITHOUT OBSTRUCTION 12/30/2019 LEANNA VILLA RETAIL BUSINESS MANAGER Ot E66.9 OBESITY, UNSPECIFIED 12/30/2019 LEANNA VILLA RETAIL BUSINESS MANAGER Ot G47.10 HYPERSOMNIA, UNSPECIFIED 12/30/2019 LEANNA VILLA RETAIL BUSINESS MANAGER Ot G47.33 OBSTRUCTIVE SLEEP APNEA (ADULT) (PEDIATR 12/30/2019 LEANNA VILLA E RETAIL BUSINESS MANAGER Ot G47.50 PARASOMNIA, UNSPECIFIED 12/30/2019 LEANNA VILLA RETAIL BUSINESS MANAGER Ot J44.9 CHRONIC OBSTRUCTIVE PULMONARY DISEASE, U 12/30/2019 LEANNA VILLA RETAIL BUSINESS MANAGER Ot R06.02 SHORTNESS OF BREATH 12/30/2019 LEANNA VILLA RETAIL BUSINESS MANAGER Ot Z68.42 BODY MASS INDEX (BMI) 45.0-49.9, ADULT 12/30/2019 LEANNA VILLA RETAIL BUSINESS MANAGER Ot Z72.0 TOBACCO USE 12/30/2019 CARL ESCOTO, SOSA Shelby Ot R07 .0 PAIN IN THROAT 12/30/2019 SOSA HENRY MD Ot R09.89 OTH SYMPTOMS AND SIGNS INVOLVING THE CIR 12/30/2019 LEANNA VILLA RETAIL BUSINESS MANAGER Ot J44.9 CHRONIC OBSTRUCTIVE PULMONARY DISEASE, U 12/30/2019 LEANNA VILLA RETAIL BUSINESS MANAGER Ot M48.54XA COLLAPSED VERTEBRA, NEC, THORACIC REGION 12/30/2019 LEANNA VILLA RETAIL BUSINESS MANAGER Ot M51.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, 12/30/2019 LEANNA VILLA APRN Ot R91.8 OTHER NONSPECIFIC ABNORMAL FINDING OF LISA 12/30/2019 LEANNA VILLA APRN Ot Z72.0 TOBACCO USE 12/30/2019 SOSA RESENDIZ MD Ot E66.01 MORBID (SEVERE) OBESITY DUE TO EXCESS CA 12/30/2019 SOSA RESENDIZ MD Ot F17.218 NICOTINE DEPENDENCE, CIGARETTES, W OTH D 12/30/2019 SOSA RESENDIZ MD Ot I87.323 CHRONIC VENOUS HTN W INFLAMMATION OF [place]AYLOR 12/30/2019 SOSA RESENDIZ MD Ot T65.222A TOXIC EFFECT OF TOBACCO CIGARETTES, SELF 12/30/2019 LEANNA VILLA APRN Ot F17.210 NICOTINE DEPENDENCE, CIGARETTES, UNCOMPL 12/30/2019 LEANNA VILLA APRN Ot J30.9 ALLERGIC RHINITIS, UNSPECIFIED 12/30/2019 LEANNA VILLA APRN Ot J44.1 CHRONIC OBSTRUCTIVE PULMONARY DISEASE W 12/30/2019 LEANNA VILLA APRN Ot R92.8 OTH ABN AND INCONCLUSIVE FINDINGS ON DX 12/30/2019 LEANNA VILLA APRN Ot S22.049A UNSP FRACTURE OF FOURTH THORACIC VERTEBR 12/30/2019 JOSEE ESCOTO FAC, ALI FACP CCDS Ot G47.33 OBSTRUCTIVE SLEEP APNEA (ADULT) (PEDIATR 12/30/2019 JOSEE ESCOTO FACC, ALI FACP CCDS Ot I77.89 OTHER SPECIFIED DISORDERS OF ARTERIES AN 12/30/2019 JOSEE ESCOTO FAC, ALI FACP CCDS Ot J44.9 CHRONIC OBSTRUCTIVE PULMONARY DISEASE, U 12/30/2019 JOSEE ESCOTO FAC, ALI FACP CCDS Ot Z72.0 TOBACCO USE 01/01/2020 LEANNA VILLA RETAIL BUSINESS MANAGER Ot G47.33 OBSTRUCTIVE SLEEP APNEA (ADULT) (PEDIATR 01/01/2020 LEANNA VILLA RETAIL BUSINESS MANAGER Ot J30.9 ALLERGIC RHINITIS, UNSPECIFIED 01/01/2020 LEANNA VILLA RETAIL BUSINESS MANAGER Ot J44.9 CHRONIC OBSTRUCTIVE PULMONARY DISEASE, U 01/01/2020 LEANNA VILLA RETAIL BUSINESS MANAGER Ot J98.4 OTHER DISORDERS OF LUNG 01/01/2020 LEANNA VILLA RETAIL BUSINESS MANAGER Ot R91.8 OTHER NONSPECIFIC ABNORMAL FINDING OF LISA 01/01/2020 LEANNA VILLA RETAIL BUSINESS MANAGER Ot Z72.0 TOBACCO USE 01/08/2020 NESS ESCOTO, SOSA Shelby Ot 727.61 ROTATOR CUFF RUPTURE 01/08/2020 KAREN ESCOTO, RYAN Moeller Ot 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 01/08/2020 KAREN ESCOTO, RYAN Moeller Ot 788.3 0 UNSPECIFIED URINARY INCONTINENCE 01/08/2020 KAREN ESCOTO, RYAN Moeller Ot V72.8 4 EXAM PRE-OPERATIVE NOS 01/08/2020 KAREN ESCOTO, RYAN Moeller Ot V74.8 SCREEN-BACTERIAL DIS NEC 01/08/2020 GELLENDER DO, MORAIMA Moeller Ot 719.46 JOINT PAIN-L/LEG 01/08/2020 [facility] MORAIMA Moeller Ot 724.2 LUMBAGO 01/08/2020 [facility], MORAIMA Moeller Ot 959.7 LOWER LEG INJURY NOS 01/08/2020 [facility], MORAIMA Moeller Ot E000.8 OTHER EXTERNAL CAUSE STATUS 01/08/2020 [facility], MORAIMA Moeller Ot E849.0 ACCIDENT IN HOME 01/08/2020 [facility], MORAIMA Moeller Ot E888.9 FALL NOS 01/08/2020 [facility], MORAIMA Moeller Ot 789.01 ABDOMINAL PAIN, RIGHT UPPER QUADRANT 01/08/2020 [facility], MORAIMA Moeller Ot 575.8 DIS OF GALLBLADDER NEC 01/08/2020 RUFINA ESCOTO, NARAYAN Marr Ot 575.8 DIS OF GALLBLADDER NEC 01/08/2020 RUFINA ESCOTO, NARAYAN Marr Ot V72.63 PRE-PROCEDURAL LABORATORY EXAMINATION 01/08/2020 RUFINA ESCOTO, NARAYAN Marr Ot V72.81 ILNX-HAG-WDILNGRDB CARDIOVASCULAR 01/08/2020 RUFINA ESCOTO, NARAYAN Marr Ot V74.8 SCREEN-BACTERIAL DIS NEC 01/08/2020 NESS ESCOTO, SOSA Shelby Ot 715.31 LOC OSTEOARTH NOS-SHLDER 01/08/2020 NESS ESCOTO, SOSA Shelby Ot 727.61 ROTATOR CUFF RUPTURE 01/08/2020 NESS ESCTOO, SOSA Shelby Ot 840.7 (SLAP) SUPERIOR GLENOID LABRUM LESIONS 01/08/2020 NESS ESCOTO, SOSA Shelby Ot V72.83 EXAM PRE-OPERATIVE NEC 01/08/2020 Ot G56.02 CAR PAL TUNNEL SYNDROME, LEFT UPPER LIMB 01/08/2020 Ot Z01.818 EN COUNTER FOR OTHER PREPROCEDURAL EXAMIN 01/08/2020 Ot Z11.2 ENCO UNTER FOR SCREENING FOR OTHER BACTER 01/08/2020 RASHEED RAHMAN Ot Z12.31 ENCNTR SCREEN MAMMOGRAM FOR MALIGNANT NE 01/08/2020 BERT DOMORAIMA Ot Z13.89 ENCOUNTER FOR SCREENING FOR OTHER DISORD 01/08/2020 SOSA GUSMAN MD Ot G56.01 CARPAL TUNNEL SYNDROME, RIGHT UPPER LIMB 01/08/2020 SOSA GUSMAN MD Ot Z01.818 ENCOUNTER FOR OTHER PREPROCEDURAL EXAMIN 01/08/2020 BERT DOMORAIMA Ot J40 BRONCHITIS, NOT SPECIFIED ACUTE OR CH 01/08/2020 [facility] J44.9 CHRONIC OBSTRUCTIVE PULMONARY DISEASE, U 01/08/2020 REPLACED BY [facility] DO, MORAIMA Moeller Ot N39.0 URINARY TRACT INFECTION, SITE NOT SPECIF 01/08/2020 DINO TILLMAN Ot R22. 31 LOCALIZED SWELLING, MASS AND LUMP, RIGHT 01/08/2020 RASHEED RAHMAN Ot Z12.31 ENCNTR SCREEN MAMMOGRAM FOR MALIGNANT NE 01/08/2020 SOSA GUSMAN MD Ot M75.121 COMPLETE ROTATR-CUFF TEAR/RUPTR OF R JOSSY 01/08/2020 MEDARDO DUFFY MD Ot Z51. 81 ENCOUNTER FOR THERAPEUTIC DRUG LEVEL MON 01/08/2020 MEDARDO DUFFY MD Ot Z79.899 OTHER BLENDER CONVEYOR OPERATOR (CURRENT) DRUG THERAPY 01/08/2020 MEDARDO DUFFY MD Ot Z12. 31 ENCNTR SCREEN MAMMOGRAM FOR MALIGNANT NE 01/08/2020 JEN SANTIAGO MD Ot M25.81 1 OTHER SPECIFIED JOINT DISORDERS, RIGHT S 01/08/2020 JOSEE ESCOTO FACC, ALI FACP CCDS Ot E78.4 OTHER HYPERLIPIDEMIA 01/08/2020 JOSEE ESCOTO FACC, ALI FACP CCDS Ot I10 ESSENTIAL (PRIMARY) HYPERTENSION 01/08/2020 JOSEE ESCOTO FACC, ALI FACP CCDS Ot J43.8 OTHER EMPHYSEMA 01/08/2020 JOSEE ESCOTO FACC, ALI FACP CCDS Ot R06.02 SHORTNESS OF BREATH 01/08/2020 JOSEE ESCOTO FACC, ALI FACP CCDS Ot Z72.0 TOBACCO USE 01/08/2020 SOSA RESENDIZ MD Ot 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 01/08/2020 SOSA RESENDIZ MD Ot T65.222D TOXIC EFFECT OF TOBACCO CIGARETTES, SELF 01/08/2020 SOSA RESENDIZ MD Ot 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 01/08/2020 SOSA RESENDIZ MD Ot T65.222D TOXIC EFFECT OF TOBACCO CIGARETTES, SELF 01/08/2020 BAIMA, COURTNEY L ASSOCIATE OF SCIENCE IN NURSING Ot E78.4 OTHER HYPERLIPIDEMIA 01/08/2020 BAIMA, COURTNEY L ASSOCIATE OF SCIENCE IN NURSING Ot F17.200 NICOTINE DEPENDENCE, UNSPECIFIED, UNCOMP 01/08/2020 BAIMA, COURTNEY L ASSOCIATE OF SCIENCE IN NURSING Ot I 10 ESSENTIAL (PRIMARY) HYPERTENSION 01/08/2020 BAIMA, COURTNEY L ASSOCIATE OF SCIENCE IN NURSING Ot 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 01/08/2020 BAIMA, COURTNEY L ASSOCIATE OF SCIENCE IN NURSING Ot E78.2 MIXED HYPERLIPIDEMIA 01/08/2020 BAIMA, COURTNEY L ASSOCIATE OF SCIENCE IN NURSING Ot I 10 ESSENTIAL (PRIMARY) HYPERTENSION 01/08/2020 BAIMA, COURTNEY L ASSOCIATE OF SCIENCE IN NURSING Ot I65.23 OCCLUSION AND STENOSIS OF BILATERAL [place] 01/08/2020 BAIMA, COURTNEY L ASSOCIATE OF SCIENCE IN NURSING Ot 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 01/08/2020 BAIMA, COURTNEY L ASSOCIATE OF SCIENCE IN NURSING Ot R06.00 DYSPNEA, UNSPECIFIED 01/08/2020 BAIMA, COURTNEY L ASSOCIATE OF SCIENCE IN NURSING Ot R60.0 LOCALIZED EDEMA 01/08/2020 BAIMA, COURTNEY L ASSOCIATE OF SCIENCE IN NURSING Ot E78.2 MIXED HYPERLIPIDEMIA 01/08/2020 BAIMA, COURTNEY L ASSOCIATE OF SCIENCE IN NURSING Ot I 10 ESSENTIAL (PRIMARY) HYPERTENSION 01/08/2020 BAIMA, COURTNEY L ASSOCIATE OF SCIENCE IN NURSING Ot I65.23 OCCLUSION AND STENOSIS OF BILATERAL [place] 01/08/2020 BAIMA, COURTNEY L ASSOCIATE OF SCIENCE IN NURSING Ot 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 01/08/2020 BAIMA, COURTNEY L ASSOCIATE OF SCIENCE IN NURSING Ot R06.09 OTHER FORMS OF DYSPNEA 01/08/2020 BAIMA, COURTNEY L ASSOCIATE OF SCIENCE IN NURSING Ot R60.0 LOCALIZED EDEMA 01/08/2020 SAKINA PARRA RETAIL BUSINESS MANAGER Ot Z12.31 ENCNTR SCREEN MAMMOGRAM FOR MALIGNANT NE 01/08/2020 DAISY, LEANNA E RETAIL BUSINESS MANAGER Ot E66.09 OTHER OBESITY DUE TO EXCESS CALORIES 01/08/2020 DAISY, LEANNA E RETAIL BUSINESS MANAGER Ot G47.50 PARASOMNIA, UNSPECIFIED 01/08/2020 DAISY, LEANNA E RETAIL BUSINESS MANAGER Ot J44.9 CHRONIC OBSTRUCTIVE PULMONARY DISEASE, U 01/08/2020 DAISY, LEANNA E RETAIL BUSINESS MANAGER Ot R29.818 OTHER SYMPTOMS AND SIGNS INVOLVING THE N 01/08/2020 YA VILLAINE E RETAIL BUSINESS MANAGER Ot R91.8 OTHER NONSPECIFIC ABNORMAL FINDING OF LISA 01/08/2020 DAISY, LEANNA E RETAIL BUSINESS MANAGER Ot Z72.0 TOBACCO USE 01/08/2020 DAISY, LEANNA E RETAIL BUSINESS MANAGER Ot E66.09 OTHER OBESITY DUE TO EXCESS CALORIES 01/08/2020 DAISY, LEANNA E RETAIL BUSINESS MANAGER Ot G47.10 HYPERSOMNIA, UNSPECIFIED 01/08/2020 DAISY, LEANNA E RETAIL BUSINESS MANAGER Ot G47.50 PARASOMNIA, UNSPECIFIED 01/08/2020 YA VILLAINE E RETAIL BUSINESS MANAGER Ot J43.8 OTHER EMPHYSEMA 01/08/2020 LEANNA VILLA E RETAIL BUSINESS MANAGER Ot R06.02 SHORTNESS OF BREATH 01/08/2020 LEANNA VILLA E RETAIL BUSINESS MANAGER Ot Z72.0 TOBACCO USE 01/08/2020 Ot E66.9 OBES ITY, UNSPECIFIED 01/08/2020 Ot G47.10 HYP ERSOMNIA, UNSPECIFIED 01/08/2020 Ot G47.33 OBS TRUCTIVE SLEEP APNEA (ADULT) (PEDIATR 01/08/2020 Ot G47.50 PAR ASOMNIA, UNSPECIFIED 01/08/2020 Ot 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 OBSTRUCTIVE PULMONARY DISEASE, U 01/08/2020 Ot R06.02 JOSSY RTNESS OF BREATH 01/08/2020 Ot Z68.42 BOD Y MASS INDEX (BMI) 45.0-49.9, ADULT 01/08/2020 Ot Z72.0 TOBA INDUSTRIAL SWEEPER CLEANER USE 01/08/2020 YA VILLAINE E RETAIL BUSINESS MANAGER Ot E66.09 OTHER OBESITY DUE TO EXCESS CALORIES 01/08/2020 DAISY LEANNA E RETAIL BUSINESS MANAGER Ot G47.10 HYPERSOMNIA, UNSPECIFIED 01/08/2020 DAISY, LEANNA E RETAIL BUSINESS MANAGER Ot G47.33 OBSTRUCTIVE SLEEP APNEA (ADULT) (PEDIATR 01/08/2020 DAISY, LEANNA E RETAIL BUSINESS MANAGER Ot G47.50 PARASOMNIA, UNSPECIFIED 01/08/2020 LEANNA VILLA RETAIL BUSINESS MANAGER Ot J44.9 CHRONIC OBSTRUCTIVE PULMONARY DISEASE, U 01/08/2020 LEANNA VILLA RETAIL BUSINESS MANAGER Ot R91.1 SOLITARY PULMONARY NODULE 01/08/2020 LEANNA VILLA RETAIL BUSINESS MANAGER Ot Z72.0 TOBACCO USE 01/08/2020 THOMAS JENNINGS DIAMOND Ot K44.9 DIAPHRAGMATIC HERNIA WITHOUT OBSTRUCTION 01/08/2020 LEANNA VILLA APRN Ot E66.9 OBESITY, UNSPECIFIED 01/08/2020 LEANNA VILLA RETAIL BUSINESS MANAGER Ot G47.10 HYPERSOMNIA, UNSPECIFIED 01/08/2020 LEANNA VILLA RETAIL BUSINESS MANAGER Ot G47.33 OBSTRUCTIVE SLEEP APNEA (ADULT) (PEDIATR 01/08/2020 LEANNA VILLA APRN Ot G47.50 PARASOMNIA, UNSPECIFIED 01/08/2020 LEANNA VILLA RETAIL BUSINESS MANAGER Ot J44.9 CHRONIC OBSTRUCTIVE PULMONARY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 UNTER FOR SCREENING FOR OTHER BACTER 01/13/2020 RASHEED RAHMAN Ot Z12.31 ENCNTR SCREEN MAMMOGRAM FOR MALIGNANT NE 01/13/2020 MORAIMA NOEL DO Ot Z13.89 ENCOUNTER FOR SCREENING FOR OTHER DISORD 01/13/2020 NESS ESCOTO, SOSA Shelby Ot G56.01 CARPAL TUNNEL SYNDROME, RIGHT UPPER LIMB 01/13/2020 NESS ESCOTO, SOSA Shelby Ot Z01.818 ENCOUNTER FOR OTHER PREPROCEDURAL EXAMIN 01/13/2020 MORAIMA NOEL DO Ot J40 BRONCHITIS, NOT SPECIFIED ACUTE OR CH 01/13/2020 MORAIMA NOEL DO Ot J44.9 CHRONIC OBSTRUCTIVE PULMONARY DISEASE, U 01/13/2020 MORAIMA NOEL DO Ot N39.0 URINARY TRACT INFECTION, SITE NOT SPECIF 01/13/2020 DINO TILLMAN Ot R22. 31 LOCALIZED SWELLING, MASS AND LUMP, RIGHT 01/13/2020 RASHEED RAHMAN Ot Z12.31 ENCNTR SCREEN MAMMOGRAM FOR MALIGNANT NE 01/13/2020 SOSA GUSMAN MD Ot M75.121 COMPLETE ROTATR-CUFF TEAR/RUPTR OF R JOSSY 01/13/2020 MEDADRO DUFFY MD Ot Z51. 81 ENCOUNTER FOR THERAPEUTIC DRUG LEVEL MON 01/13/2020 MEDARDO DUFFY MD Ot Z79.899 OTHER SKILLED NURSING (CURRENT) DRUG THERAPY 01/13/2020 MEDARDO DUFFY MD Ot Z12. 31 ENCNTR SCREEN MAMMOGRAM FOR MALIGNANT NE 01/13/2020 JEN SANTIAGO MD Ot M25.81 1 OTHER SPECIFIED JOINT DISORDERS, RIGHT S 01/13/2020 JOSEE ESCOTO FAC, ALI FACP CCDS Ot E78.4 OTHER HYPERLIPIDEMIA 01/13/2020 JOSEE ESCOTO FACC, ALI FACP CCDS Ot I10 ESSENTIAL (PRIMARY) HYPERTENSION 01/13/2020 JOSEE ESCOTO FACC, ALI FACP CCDS Ot J43.8 OTHER EMPHYSEMA 01/13/2020 JOSEE ESCOTO FACC, ALI FACP CCDS Ot R06.02 SHORTNESS OF BREATH 01/13/2020 JOSEE ESCOTO FACC, ALI FACP CCDS Ot Z72.0 TOBACCO USE 01/13/2020 SOSA RESENDIZ MD Ot 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 01/13/2020 SOSA RESENDIZ MD Ot T65.222D TOXIC EFFECT OF TOBACCO CIGARETTES, SELF 01/13/2020 SOSA RESENDIZ MD Ot 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 01/13/2020 SOSA RESENDIZ MD Ot T65.222D TOXIC EFFECT OF TOBACCO CIGARETTES, SELF 01/13/2020 BAIMA, COURTNEY L ASSOCIATE OF SCIENCE IN NURSING Ot E78.4 OTHER HYPERLIPIDEMIA 01/13/2020 BAIMA, COURTNEY L ASSOCIATE OF SCIENCE IN NURSING Ot F17.200 NICOTINE DEPENDENCE, UNSPECIFIED, UNCOMP 01/13/2020 BAIMA, COURTNEY L ASSOCIATE OF SCIENCE IN NURSING Ot I 10 ESSENTIAL (PRIMARY) HYPERTENSION 01/13/2020 BAIMA, COURTNEY L ASSOCIATE OF SCIENCE IN NURSING Ot 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 01/13/2020 BAIMA, COURTNEY L ASSOCIATE OF SCIENCE IN NURSING Ot E78.2 MIXED HYPERLIPIDEMIA 01/13/2020 BAIMA, COURTNEY L ASSOCIATE OF SCIENCE IN NURSING Ot I 10 ESSENTIAL (PRIMARY) HYPERTENSION 01/13/2020 BAIMA, COURTNEY L ASSOCIATE OF SCIENCE IN NURSING Ot I65.23 OCCLUSION AND STENOSIS OF BILATERAL [place] 01/13/2020 BAIMA, COURTNEY L ASSOCIATE OF SCIENCE IN NURSING Ot 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 01/13/2020 BAIMA, COURTNEY L ASSOCIATE OF SCIENCE IN NURSING Ot R06.00 DYSPNEA, UNSPECIFIED 01/13/2020 BAIMA, COURTNEY L ASSOCIATE OF SCIENCE IN NURSING Ot R60.0 LOCALIZED EDEMA 01/13/2020 BAIMA, COURTNEY L ASSOCIATE OF SCIENCE IN NURSING Ot E78.2 MIXED HYPERLIPIDEMIA 01/13/2020 BAIMA, COURTNEY L ASSOCIATE OF SCIENCE IN NURSING Ot I 10 ESSENTIAL (PRIMARY) HYPERTENSION 01/13/2020 BAIMA, COURTNEY L ASSOCIATE OF SCIENCE IN NURSING Ot I65.23 OCCLUSION AND STENOSIS OF BILATERAL [place] 01/13/2020 BAIMA, COURTNEY L ASSOCIATE OF SCIENCE IN NURSING Ot 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 01/13/2020 BAIMA, COURTNEY L ASSOCIATE OF SCIENCE IN NURSING Ot R06.09 OTHER FORMS OF DYSPNEA 01/13/2020 BAIMA, COURTNEY L ASSOCIATE OF SCIENCE IN NURSING Ot R60.0 LOCALIZED EDEMA 01/13/2020 AIDA SAKINA Lovelace RETAIL BUSINESS MANAGER Ot Z12.31 ENCNTR SCREEN MAMMOGRAM FOR MALIGNANT NE 01/13/2020 LEANNA VILLA RETAIL BUSINESS MANAGER Ot E66.09 OTHER OBESITY DUE TO EXCESS CALORIES 01/13/2020 LEANNA VILLA RETAIL BUSINESS MANAGER Ot G47.50 PARASOMNIA, UNSPECIFIED 01/13/2020 LEANNA VILLA RETAIL BUSINESS MANAGER Ot J44.9 CHRONIC OBSTRUCTIVE PULMONARY DISEASE, U 01/13/2020 LEANNA VILLA RETAIL BUSINESS MANAGER Ot R29.818 OTHER SYMPTOMS AND SIGNS INVOLVING THE N 01/13/2020 LEANNA VILLA RETAIL BUSINESS MANAGER Ot R91.8 OTHER NONSPECIFIC ABNORMAL FINDING OF LISA 01/13/2020 LEANNA VILLA RETAIL BUSINESS MANAGER Ot Z72.0 TOBACCO USE 01/13/2020 LEANNA VILLA RETAIL BUSINESS MANAGER Ot E66.09 OTHER OBESITY DUE TO EXCESS CALORIES 01/13/2020 LEANNA VILLA RETAIL BUSINESS MANAGER Ot G47.10 HYPERSOMNIA, UNSPECIFIED 01/13/2020 LEANNA VILLA RETAIL BUSINESS MANAGER Ot G47.50 PARASOMNIA, UNSPECIFIED 01/13/2020 LEANNA VILLA RETAIL BUSINESS MANAGER Ot J43.8 OTHER EMPHYSEMA 01/13/2020 LEANNA VILLA RETAIL BUSINESS MANAGER Ot R06.02 SHORTNESS OF BREATH 01/13/2020 LEANNA VILLA RETAIL BUSINESS MANAGER Ot Z72.0 TOBACCO USE 01/13/2020 Ot E66.9 OBES ITY, UNSPECIFIED 01/13/2020 Ot G47.10 HYP ERSOMNIA, UNSPECIFIED 01/13/2020 Ot G47.33 OBS TRUCTIVE SLEEP APNEA (ADULT) (PEDIATR 01/13/2020 Ot G47.50 PAR ASOMNIA, UNSPECIFIED 01/13/2020 Ot 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 OBSTRUCTIVE PULMONARY DISEASE, U 01/13/2020 Ot R06.02 JOSSY RTNESS OF BREATH 01/13/2020 Ot Z68.42 BOD Y MASS INDEX (BMI) 45.0-49.9, ADULT 01/13/2020 Ot Z72.0 TOBA INDUSTRIAL SWEEPER CLEANER USE 01/13/2020 DAISY, LEANNA E RETAIL BUSINESS MANAGER Ot E66.09 OTHER OBESITY DUE TO EXCESS CALORIES 01/13/2020 DAISY, LEANNA E RETAIL BUSINESS MANAGER Ot G47.10 HYPERSOMNIA, UNSPECIFIED 01/13/2020 DAISY, LEANNA E RETAIL BUSINESS MANAGER Ot G47.33 OBSTRUCTIVE SLEEP APNEA (ADULT) (PEDIATR 01/13/2020 DIASY, LEANNA E RETAIL BUSINESS MANAGER Ot G47.50 PARASOMNIA, UNSPECIFIED 01/13/2020 DAISY, LEANNA E RETAIL BUSINESS MANAGER Ot J44.9 CHRONIC OBSTRUCTIVE PULMONARY DISEASE, U 01/13/2020 DAISY, LEANNA E RETAIL BUSINESS MANAGER Ot R91.1 SOLITARY PULMONARY NODULE 01/13/2020 DAISY, LEANNA E RETAIL BUSINESS MANAGER Ot Z72.0 TOBACCO USE 01/13/2020 THOMAS JENNIGNS Ot K44.9 DIAPHRAGMATIC HERNIA WITHOUT OBSTRUCTION 01/13/2020 DAISY, LEANNA E RETAIL BUSINESS MANAGER Ot E66.9 OBESITY, UNSPECIFIED 01/13/2020 DAISY, LEANNA E RETAIL BUSINESS MANAGER Ot G47.10 HYPERSOMNIA, UNSPECIFIED 01/13/2020 DAISY, LEANNA E RETAIL BUSINESS MANAGER Ot G47.33 OBSTRUCTIVE SLEEP APNEA (ADULT) (PEDIATR 01/13/2020 DAISY, LEANNA E RETAIL BUSINESS MANAGER Ot G47.50 PARASOMNIA, UNSPECIFIED 01/13/2020 DAISY, LEANNA E RETAIL BUSINESS MANAGER Ot J44.9 CHRONIC OBSTRUCTIVE PULMONARY DISEASE, U 01/13/2020 DAISY, LEANNA E RETAIL BUSINESS MANAGER Ot R06.02 SHORTNESS OF BREATH 01/13/2020 DAISY, LEANNA E RETAIL BUSINESS MANAGER Ot Z68.42 BODY MASS INDEX (BMI) 45.0-49.9, ADULT 01/13/2020 DAISY, LEANNA E RETAIL BUSINESS MANAGER Ot Z72.0 TOBACCO USE 01/13/2020 SOSA HENRY MD Ot R07 .0 PAIN IN THROAT 01/13/2020 SOSA HENRY MD Ot R09.89 OTH SYMPTOMS AND SIGNS INVOLVING THE CIR 01/13/2020 LEANNA VILLA APRN Ot J44.9 CHRONIC OBSTRUCTIVE PULMONARY DISEASE, U 01/13/2020 LEANNA VILLA APRN Ot M48.54XA COLLAPSED VERTEBRA, NEC, THORACIC REGION 01/13/2020 LEANNA VILLA APRN Ot M51.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, 01/13/2020 LEANNA VILLA APRN Ot R91.8 OTHER NONSPECIFIC ABNORMAL FINDING OF LISA 01/13/2020 LEANNA VILLA APRN Ot Z72.0 TOBACCO USE 01/13/2020 SOSA RESENDIZ MD Ot E66.01 MORBID (SEVERE) OBESITY DUE TO EXCESS CA 01/13/2020 SOSA RESENDIZ MD Ot F17.218 NICOTINE DEPENDENCE, CIGARETTES, W OTH D 01/13/2020 SOSA RESENDIZ MD Ot I87.323 CHRONIC VENOUS HTN W INFLAMMATION OF [place]AYLOR 01/13/2020 SOSA RESENDIZ MD Ot T65.222A TOXIC EFFECT OF TOBACCO CIGARETTES, SELF 01/13/2020 LEANNA VILLA APRN Ot F17.210 NICOTINE DEPENDENCE, CIGARETTES, UNCOMPL 01/13/2020 LEANNA VILLA APRN Ot J30.9 ALLERGIC RHINITIS, UNSPECIFIED 01/13/2020 LEANNA VILLA APRN Ot J44.1 CHRONIC OBSTRUCTIVE PULMONARY DISEASE W 01/13/2020 LEANNA VILLA APRN Ot R92.8 OTH ABN AND INCONCLUSIVE FINDINGS ON DX 01/13/2020 LEANNA VILLA APRN Ot S22.049A UNSP FRACTURE OF FOURTH THORACIC VERTEBR 01/13/2020 JOSEE KIM, ALI FACP CCDS Ot G47.33 OBSTRUCTIVE SLEEP APNEA (ADULT) (PEDIATR 01/13/2020 JOSEE ESCOTO FACC, ALI FACP CCDS Ot I77.89 OTHER SPECIFIED DISORDERS OF ARTERIES AN 01/13/2020 JOSEE ESCOTO FACC, ALI FACP CCDS Ot J44.9 CHRONIC OBSTRUCTIVE PULMONARY DISEASE, U 01/13/2020 JOSEE ESCOTO FACC, ALI FACP CCDS Ot Z72.0 TOBACCO USE 01/13/2020 LEANNA VILLA APRN Ot G47.33 OBSTRUCTIVE SLEEP APNEA (ADULT) (PEDIATR 01/13/2020 LEANNA VILLA APRN Ot J30.9 ALLERGIC RHINITIS, UNSPECIFIED 01/13/2020 LEANNA VILLA APRN Ot J44.9 CHRONIC OBSTRUCTIVE PULMONARY DISEASE, U 01/13/2020 LEANNA VILLA APRN Ot J98.4 OTHER DISORDERS OF LUNG 01/13/2020 LEANNA VILLA APRN Ot R91.8 OTHER NONSPECIFIC ABNORMAL FINDING OF LISA 01/13/2020 LEANNA VILLA APRN Ot Z72.0 TOBACCO USE Procedures Code Description Performed By Per formed On 38.93 VENO US CATHETERIZATION NEC 08/13/2011 81.54 TOTA L KNEE REPLACEMENT 10/23/2011 57483 XRAY KNEE RIGHT 1 OR 2 VIEWS 02/12/2013 Q0091 PAP SMEAR OBTAIN SMEAR 06/02/2013 60393 HEMOCCULT 06/02/2013 95429 PAP SMEAR 06/05/2013 47567 CULT URE WOUND (AEROBIC) 07/06/2013 67549 URIN E DRUG SCREEN (IN-HOUSE) 09/11/2013 52367 URIN E METH/AMPHETAMINE GC/MS 09/18/2013 74562 ROUT INE VENIPUNCTURE 11/17/2013 33284 CBC 11/17/2013 Orthopedi Sosa Gusman 11/20/2013 63228 HEMOCCULT 11/20/2013 41316 HEMOCCULT 11/20/2013 01155 XRAY KNEE LEFT, 1 OR 2 VIEWS 11/20/2013 09596 MAMM OGRAM, SCREENING 11/21/2013 94166 AMERITOX 11/21/2013 General S Darrel Love 11/21/2013 04111 ROUT INE VENIPUNCTURE 12/02/2013 26007 CBC 12/02/2013 [id number] GF R CALC (RESULT ONLY) 12/02/2013 76894 CMP 12/02/2013 78652 LIPI D PANEL 12/02/2013 72090 XRAY FOOT LEFT COMP MIN 3 VIEWS 01/05/2014 Cardiolog Roger Tripp 01/05/2014 37061 XRAY FOOT RIGHT COMP MIN 3 VIEWS 01/05/2014 85280 UA W / CULTURE IF INDICATED 01/05/2014 18989 CULT URE URINE 01/06/2014 88845 ROUT INE VENIPUNCTURE 03/19/2014 G0008 FLU ADMINISTRATION (MEDICARE ONLY) 03/19/2014 78681 PULM ONARY EDUCATION 03/19/2014 G0437 MIGUELANGEL INDUSTRIAL SWEEPER CLEANER-USE SEASONAL CLERK>10MIN 03/19/2014 [id number] GF R CALC (RESULT ONLY) 03/19/2014 34867 BMP 03/19/2014 14156 MAGNESIUM 03/19/2014 Physical P hysical Therapy, Via [facility] 03/30/2014 21396 DEBR SAMUEL NAIL >6 04/17/2014 28501 OXIMETRY 06/03/2014 63787 AMERITOX 07/08/2014 [id number] IN SERTION OF INFUSION DEV INTO SUP VENA 07/12/2016 Results Test Result Range Bacterial blood culture - 04/12/16 10:00 Bacterial blood culture NG NRG PT panel in platelet poor plasma by coag ulation assay - 04/12/16 10:10 Prothrombin time (PT) in platelet poor plasma by coagu lation assay 13.3 s 12.2-14.7 INR in platelet poor plasma or blood by coagulation as say 1.0 0.8-1.4 Activated partial thromboplastin time (a PTT) in platelet poor plasma bycoagulation assay - 04/12/16 10:10 Activated partial thromboplastin time (a PTT) in platelet poor plasma bycoagulation assay 26 s 24-35 Blood lactic acid measurement (moles/vol ume) - 04/12/16 10:10 Blood lactic acid measurement (moles/volume) 1.8 m mol/L 0.5- 2.0 Comprehensive metabolic panel - 04/12/16 10:10 Serum or plasma sodium measurement (moles/volume) 135 mmol/L 135-145 Serum or plasma potassium measurement (moles/volume) 3.1 mmol/L 3.6-5.0 Serum or plasma chloride measurement (moles/volume) 97 mmol/L 98-107 Carbon dioxide 28 mmol/L 21-32 Serum or plasma anion gap determination (moles/volume) 10 mmol/L 5-14 Serum or plasma urea nitrogen measurement (mass/volume ) 33 mg/dL 7-18 Serum or plasma creatinine measurement (mass/volume) 1.77 mg/dL 0.60-1.30 Serum or plasma urea nitrogen/creatinine mass ratio 19 NRG Serum or plasma creatinine measurement w ith calculation of estimated glomerular filtration rate 30 NRG Serum or plasma glucose measurement (mass/volume) 99 mg/dL 70-105 Serum or plasma calcium measurement (mass/volume) 8.3 mg/dL 8.5-10.1 Serum or plasma total bilirubin measurement (mass/volu me) 0.4 mg/dL 0.1-1.0 Serum or plasma alkaline phosphatase jose surement (enzymatic activity/volume) 73 U/L 40-136 Serum or plasma aspartate aminotransfera se measurement (enzymatic activity/volume) 20 U/L 5-34 Serum or plasma alanine aminotransferase measurement (enzymatic activity/volume) 18 U/L 0-55 Serum or plasma protein measurement (mass/volume) 6.5 g/dL 6.4-8.2 Serum or plasma albumin measurement (mass/volume) 3.6 g/dL 3.2-4.5 Serum or plasma troponin i.cardiac measu rement (mass/volume) - 04/12/16 10:10 Serum or plasma troponin i.cardiac measurement (mass/v olume) < ng/mL <0.30 Serum or plasma C reactive protein measu rement (mass/volume) - 04/12/16 10:10 Serum or plasma C reactive protein measurement (mass/v olume) 4.67 mg/dL 0.00-0.50 Bacterial blood culture - 04/12/16 10:10 Bacterial blood culture NG NRG Activated partial thromboplastin time (a PTT) in platelet poor plasma bycoagulation assay - 04/12/16 16:00 Activated partial thromboplastin time (a PTT) in platelet poor plasma bycoagulation assay 56 s 24-35 Whole blood basic metabolic panel - 07/27 17:21 Serum or plasma sodium measurement (moles/volume) 139 mmol/L 135-145 Serum or plasma potassium measurement (moles/volume) 3.2 mmol/L 3.6-5.0 Serum or plasma chloride measurement (moles/volume) 104 mmol/L 98-107 Carbon dioxide 26 mmol/L 21-32 Serum or plasma anion gap determination (moles/volume) 9 mmol/L 5-14 Serum or plasma urea nitrogen measurement (mass/volume ) 29 mg/dL 7-18 Serum or plasma creatinine measurement (mass/volume) 1.26 mg/dL 0.60-1.30 Serum or plasma urea nitrogen/creatinine mass ratio 23 NRG Serum or plasma creatinine measurement w ith calculation of estimated glomerular filtration rate 44 NRG Serum or plasma glucose measurement (mass/volume) 114 mg/dL 70-105 Serum or plasma calcium measurement (mass/volume) 7.7 mg/dL 8.5-10.1 Activated partial thromboplastin time (a PTT) in platelet poor plasma bycoagulation assay - 04/12/16 23:11 Activated partial thromboplastin time (a PTT) in platelet poor plasma bycoagulation assay 29 s 24-35 Complete blood count (CBC) with automate d white blood cell (WBC) differential - 04/13/16 05:03 Blood leukocytes automated count (number/volume) 4.7 10*3/uL 4.3-11.0 Blood erythrocytes automated count (number/volume) 3.86 10*6/uL 4.35-5.85 Venous blood hemoglobin measurement (mass/volume) 11.4 g/dL 11.5-16.0 Blood hematocrit (volume fraction) 34 % 35-52 Automated erythrocyte mean corpuscular volume 89 [ foz_us] 80-99 Automated erythrocyte mean corpuscular h emoglobin (mass per erythrocyte) 30 pg 25-34 Automated erythrocyte mean corpuscular h emoglobin concentration measurement (mass/volume) 33 g/dL 32-36 Automated erythrocyte distribution width ratio 13. 7 % 10.0- 14.5 Automated blood platelet count [...] 10*3 1.0-4.0 Blood monocytes automated count (number/volume) 0. 6 10*3 0.0-1.0 Automated eosinophil count 0.3 10*3/uL 0 .0-0.3 Automated blood basophil count (count/volume) 0.0 10*3/uL 0.0-0.1 Comprehensive metabolic panel - 04/13/16 05:10 Serum or plasma sodium measurement (moles/volume) 140 mmol/L 135-145 Serum or plasma potassium measurement (moles/volume) 3.3 mmol/L 3.6-5.0 Serum or plasma chloride measurement (moles/volume) 106 mmol/L 98-107 Carbon dioxide 24 mmol/L 21-32 Serum or plasma anion gap determination (moles/volume) 10 mmol/L 5-14 Serum or plasma urea nitrogen measurement (mass/volume ) 21 mg/dL 7-18 Serum or plasma creatinine measurement (mass/volume) 0.84 mg/dL 0.60-1.30 Serum or plasma urea nitrogen/creatinine mass ratio 25 NRG Serum or plasma creatinine measurement w ith calculation of estimated glomerular filtration rate > NRG Serum or plasma glucose measurement (mass/volume) 98 mg/dL 70-105 Serum or plasma calcium measurement (mass/volume) 7.9 mg/dL 8.5-10.1 Serum or plasma total bilirubin measurement (mass/volu me) 0.3 mg/dL 0.1-1.0 Serum or plasma alkaline phosphatase jose surement (enzymatic activity/volume) 60 U/L 40-136 Serum or plasma aspartate aminotransfera se measurement (enzymatic activity/volume) 13 U/L 5-34 Serum or plasma alanine aminotransferase measurement (enzymatic activity/volume) 16 U/L 0-55 Serum or plasma protein measurement (mass/volume) 5.4 g/dL 6.4-8.2 Serum or plasma albumin measurement (mass/volume) 3.0 g/dL 3.2-4.5 Complete blood count (CBC) with automate d white blood cell (WBC) differential - 07/12/16 15:20 Blood leukocytes automated count (number/volume) 9.8 10*3/uL 4.3-11.0 Blood erythrocytes automated count (number/volume) 4.53 10*6/uL 4.35-5.85 Venous blood hemoglobin measurement (mass/volume) 13.4 g/dL 11.5-16.0 Blood hematocrit (volume fraction) 39 % 35-52 Automated erythrocyte mean corpuscular volume 86 [ foz_us] 80-99 Automated erythrocyte mean corpuscular h emoglobin (mass per erythrocyte) 30 pg 25-34 Automated erythrocyte mean corpuscular h emoglobin concentration measurement (mass/volume) 34 g/dL 32-36 Automated erythrocyte distribution width ratio 15. 6 % 10.0- 14.5 Automated blood platelet count [...] 10*3 1.0-4.0 Blood monocytes automated count (number/volume) 1. 3 10*3 0.0-1.0 Automated eosinophil count 0.1 10*3/uL 0 .0-0.3 Automated blood basophil count (count/volume) 0.0 10*3/uL 0.0-0.1 Comprehensive metabolic panel - 07/12/16 15:20 Serum or plasma sodium measurement (moles/volume) 137 mmol/L 135-145 Serum or plasma potassium measurement (moles/volume) 2.0 mmol/L 3.6-5.0 Serum or plasma chloride measurement (moles/volume) 93 mmol/L 98-107 Carbon dioxide 31 mmol/L 21-32 Serum or plasma anion gap determination (moles/volume) 13 mmol/L 5-14 Serum or plasma urea nitrogen measurement (mass/volume ) 12 mg/dL 7-18 Serum or plasma creatinine measurement (mass/volume) 0.98 mg/dL 0.60-1.30 Serum or plasma urea nitrogen/creatinine mass ratio 12 NRG Serum or plasma creatinine measurement w ith calculation of estimated glomerular filtration rate 59 NRG Serum or plasma glucose measurement (mass/volume) 117 mg/dL 70-105 Serum or plasma calcium measurement (mass/volume) 9.2 mg/dL 8.5-10.1 Serum or plasma total bilirubin measurement (mass/volu me) 0.6 mg/dL 0.1-1.0 Serum or plasma alkaline phosphatase jose surement (enzymatic activity/volume) 66 U/L 40-136 Serum or plasma aspartate aminotransfera se measurement (enzymatic activity/volume) 30 U/L 5-34 Serum or plasma alanine aminotransferase measurement (enzymatic activity/volume) 26 U/L 0-55 Serum or plasma protein measurement (mass/volume) 6.9 g/dL 6.4-8.2 Serum or plasma albumin measurement (mass/volume) 3.7 g/dL 3.2-4.5 Magnesium - 07/12/16 15:20 Magnesium 1.7 mg/dL 1.8-2.4 THYROID STIMULATING HORMONE - 07/12/16 1 5:20 THYROID STIMULATING HORMONE 1.46 u[iU]/mL 0.35-4.94 Serum or plasma salicylates measurement (mass/volume) - 07/12/16 15:20 Serum or plasma salicylates measurement (mass/volume) < mg/dL 5.0-20.0 Serum or plasma acetaminophen measuremen t (mass/volume) - 07/12/16 15:20 Serum or plasma acetaminophen measurement (mass/volume ) < ug/mL 10-30 Valproic acid - 07/12/16 15:20 Valproic acid < ug/mL 50.0-100.0 Serum or plasma ethanol measurement (mas s/volume) - 07/12/16 15:20 Serum or plasma ethanol measurement (mass/volume) < mg/dL <10 Urine drug screening test - 07/12/16 15: 43 Urine phencyclidine detection by screening method NEGATIVE NEGATIVE Urine benzodiazepines detection by screening method POSITIVE NEGATIVE Urine cocaine detection NEGATIVE NEGATI VE Urine amphetamines detection by screening method P OSITIVE NEGATIVE Urine methamphetamine detection by screening method POSITIVE NEGATIVE Urine cannabinoids detection by screening method N EGATIVE NEGATIVE Urine opiates detection by screening method POSITI VE NEGATIVE Urine barbiturates detection NEGATIVE N EGATIVE Screening urine tricyclic antidepressants detection NEGATIVE NEGATIVE Urine methadone detection by screening method NEGA TIVE NEGATIVE Urine oxycodone detection NEGATIVE NEGA TIVE Urine propoxyphene detection NEGATIVE N EGATIVE Blood lactic acid measurement (moles/vol ume) - 07/12/16 15:50 Blood lactic acid measurement (moles/volume) 1.9 m mol/L 0.5- 2.0 Bacterial blood culture - 07/12/16 15:50 Bacterial blood culture NG NRG Bacterial blood culture - 07/12/16 16:37 Bacterial blood culture NG NRG Methicillin resistant Staphylococcus aur eus (MRSA) screening culture - 07/12/16 21:50 Methicillin resistant Staphylococcus aureus (MRSA) scr eening culture NEG NRG Complete blood count (CBC) with automate d white blood cell (WBC) differential - 07/13/16 04:11 Blood leukocytes automated count (number/volume) 6.4 10*3/uL 4.3-11.0 Blood erythrocytes automated count (number/volume) 4.02 10*6/uL 4.35-5.85 Venous blood hemoglobin measurement (mass/volume) 11.9 g/dL 11.5-16.0 Blood hematocrit (volume fraction) 36 % 35-52 Automated erythrocyte mean corpuscular volume 89 [ foz_us] 80-99 Automated erythrocyte mean corpuscular h emoglobin (mass per erythrocyte) 30 pg 25-34 Automated erythrocyte mean corpuscular h emoglobin concentration measurement (mass/volume) 33 g/dL 32-36 Automated erythrocyte distribution width ratio 16. 0 % 10.0- 14.5 Automated blood platelet count [...] 10*3 1.0-4.0 Blood monocytes automated count (number/volume) 0. 9 10*3 0.0-1.0 Automated eosinophil count 0.2 10*3/uL 0 .0-0.3 Automated blood basophil count (count/volume) 0.0 10*3/uL 0.0-0.1 Comprehensive metabolic panel - 07/13/16 04:11 Serum or plasma sodium measurement (moles/volume) 141 mmol/L 135-145 Serum or plasma potassium measurement (moles/volume) 2.4 mmol/L 3.6-5.0 Serum or plasma chloride measurement (moles/volume) 101 mmol/L 98-107 Carbon dioxide 29 mmol/L 21-32 Serum or plasma anion gap determination (moles/volume) 11 mmol/L 5-14 Serum or plasma urea nitrogen measurement (mass/volume ) 7 mg/dL 7-18 Serum or plasma creatinine measurement (mass/volume) 0.72 mg/dL 0.60-1.30 Serum or plasma urea nitrogen/creatinine mass ratio 10 NRG Serum or plasma creatinine measurement w ith calculation of estimated glomerular filtration rate > NRG Serum or plasma glucose measurement (mass/volume) 115 mg/dL 70-105 Serum or plasma calcium measurement (mass/volume) 7.8 mg/dL 8.5-10.1 Serum or plasma total bilirubin measurement (mass/volu me) 0.6 mg/dL 0.1-1.0 Serum or plasma alkaline phosphatase jose surement (enzymatic activity/volume) 52 U/L 40-136 Serum or plasma aspartate aminotransfera se measurement (enzymatic activity/volume) 26 U/L 5-34 Serum or plasma alanine aminotransferase measurement (enzymatic activity/volume) 20 U/L 0-55 Serum or plasma protein measurement (mass/volume) 5.7 g/dL 6.4-8.2 Serum or plasma albumin measurement (mass/volume) 2.9 g/dL 3.2-4.5 Magnesium - 07/13/16 04:11 Magnesium 2.1 mg/dL 1.8-2.4 Whole blood basic metabolic panel - 07/28 13:30 Serum or plasma sodium measurement (moles/volume) 139 mmol/L 135-145 Serum or plasma potassium measurement (moles/volume) 2.7 mmol/L 3.6-5.0 Serum or plasma chloride measurement (moles/volume) 102 mmol/L 98-107 Carbon dioxide 30 mmol/L 21-32 Serum or plasma anion gap determination (moles/volume) 7 mmol/L 5-14 Serum or plasma urea nitrogen measurement (mass/volume ) 8 mg/dL 7-18 Serum or plasma creatinine measurement (mass/volume) 0.68 mg/dL 0.60-1.30 Serum or plasma urea nitrogen/creatinine mass ratio 12 NRG Serum or plasma creatinine measurement w ith calculation of estimated glomerular filtration rate > NRG Serum or plasma glucose measurement (mass/volume) 103 mg/dL 70-105 Serum or plasma calcium measurement (mass/volume) 7.8 mg/dL 8.5-10.1 Vancomycin trough - 07/13/16 17:58 Vancomycin trough 15.0 ug/mL 10.0-20.0 Gram stain microscopy - 07/13/16 17:58 GRAM STAIN RESULT FEW WBC'S, NO BACTERIA OBSERVED NRG Bacteria identification in wound by cult ure - 07/13/16 17:58 Bacteria identification in wound by culture [id number] NRG QUANTITY OF GROWTH Scant Growth NRG Whole blood basic metabolic panel - 07/28 22:35 Serum or plasma sodium measurement (moles/volume) 142 mmol/L 135-145 Serum or plasma potassium measurement (moles/volume) 3.4 mmol/L 3.6-5.0 Serum or plasma chloride measurement (moles/volume) 107 mmol/L 98-107 Carbon dioxide 28 mmol/L 21-32 Serum or plasma anion gap determination (moles/volume) 7 mmol/L 5-14 Serum or plasma urea nitrogen measurement (mass/volume ) 7 mg/dL 7-18 Serum or plasma creatinine measurement (mass/volume) 0.67 mg/dL 0.60-1.30 Serum or plasma urea nitrogen/creatinine mass ratio 10 NRG Serum or plasma creatinine measurement w ith calculation of estimated glomerular filtration rate > NRG Serum or plasma glucose measurement (mass/volume) 104 mg/dL 70-105 Serum or plasma calcium measurement (mass/volume) 7.6 mg/dL 8.5-10.1 Complete blood count (CBC) with automate d white blood cell (WBC) differential - 07/14/16 04:35 Blood leukocytes automated count (number/volume) 6.4 10*3/uL 4.3-11.0 Blood erythrocytes automated count (number/volume) 3.70 10*6/uL 4.35-5.85 Venous blood hemoglobin measurement (mass/volume) 11.0 g/dL 11.5-16.0 Blood hematocrit (volume fraction) 34 % 35-52 Automated erythrocyte mean corpuscular volume 91 [ foz_us] 80-99 Automated erythrocyte mean corpuscular h emoglobin (mass per erythrocyte) 30 pg 25-34 Automated erythrocyte mean corpuscular h emoglobin concentration measurement (mass/volume) 33 g/dL 32-36 Automated erythrocyte distribution width ratio 16. 8 % 10.0- 14.5 Automated blood platelet count [...] 10*3 1.0-4.0 Blood monocytes automated count (number/volume) 0. 6 10*3 0.0-1.0 Automated eosinophil count 0.2 10*3/uL 0 .0-0.3 Automated blood basophil count (count/volume) 0.0 10*3/uL 0.0-0.1 Whole blood basic metabolic panel - 08/25 04:35 Serum or plasma sodium measurement (moles/volume) 144 mmol/L 135-145 Serum or plasma potassium measurement (moles/volume) 3.3 mmol/L 3.6-5.0 Serum or plasma chloride measurement (moles/volume) 110 mmol/L 98-107 Carbon dioxide 26 mmol/L 21-32 Serum or plasma anion gap determination (moles/volume) 8 mmol/L 5-14 Serum or plasma urea nitrogen measurement (mass/volume ) 6 mg/dL 7-18 Serum or plasma creatinine measurement (mass/volume) 0.67 mg/dL 0.60-1.30 Serum or plasma urea nitrogen/creatinine mass ratio 9 NRG Serum or plasma creatinine measurement w ith calculation of estimated glomerular filtration rate > NRG Serum or plasma glucose measurement (mass/volume) 104 mg/dL 70-105 Serum or plasma calcium measurement (mass/volume) 7.5 mg/dL 8.5-10.1 Serum or plasma phosphate measurement (m ass/volume) - 07/14/16 04:35 Serum or plasma phosphate measurement (mass/volume) 2.3 mg/dL 2.3-4.7 Magnesium - 07/14/16 04:35 Magnesium 1.8 mg/dL 1.8-2.4 Hemoglobin A1c - 07/14/16 04:35 Hemoglobin A1c 6.2 % 4.5-6.2 Serum or plasma potassium measurement (m oles/volume) - 07/14/16 14:37 Serum or plasma potassium measurement (moles/volume) 3.9 mmol/L 3.6-5.0 Blood CBC with ordered manual differenti al panel - 07/15/16 05:45 Blood leukocytes automated count (number/volume) 6.1 10*3/uL 4.3-11.0 Blood erythrocytes automated count (number/volume) 3.65 10*6/uL 4.35-5.85 Venous blood hemoglobin measurement (mass/volume) 10.7 g/dL 11.5-16.0 Blood hematocrit (volume fraction) 33 % 35-52 Automated erythrocyte mean corpuscular volume 92 [ foz_us] 80-99 Automated erythrocyte mean corpuscular h emoglobin (mass per erythrocyte) 29 pg 25-34 Automated erythrocyte mean corpuscular h emoglobin concentration measurement (mass/volume) 32 g/dL 32-36 Automated erythrocyte distribution width ratio 16. 4 % 10.0- 14.5 Automated blood platelet count [...] 10*3 1.0-4.0 Blood monocytes automated count (number/volume) 0. 5 10*3 0.0-1.0 Automated eosinophil count 0.3 10*3/uL 0 .0-0.3 Automated blood basophil count (count/volume) 0.0 10*3/uL [...] NRG Blood anisocytosis detection by light microscopy S LIGHT NRG Blood macrocytes detection by light microscopy SLI T NRG Blood microcytes detection by light microscopy SLI T NRG Blood spherocytes detection by light microscopy [facility] Comprehensive metabolic panel - 07/15/16 05:45 Serum or plasma sodium measurement (moles/volume) 142 mmol/L 135-145 Serum or plasma potassium measurement (moles/volume) 3.8 mmol/L 3.6-5.0 Serum or plasma chloride measurement (moles/volume) 110 mmol/L 98-107 Carbon dioxide 25 mmol/L 21-32 Serum or plasma anion gap determination (moles/volume) 7 mmol/L 5-14 Serum or plasma urea nitrogen measurement (mass/volume ) 9 mg/dL 7-18 Serum or plasma creatinine measurement (mass/volume) 0.65 mg/dL 0.60-1.30 Serum or plasma urea nitrogen/creatinine mass ratio 14 NRG Serum or plasma creatinine measurement w ith calculation of estimated glomerular filtration rate > NRG Serum or plasma glucose measurement (mass/volume) 93 mg/dL 70-105 Serum or plasma calcium measurement (mass/volume) 7.5 mg/dL 8.5-10.1 Serum or plasma total bilirubin measurement (mass/volu me) 0.3 mg/dL 0.1-1.0 Serum or plasma alkaline phosphatase jose surement (enzymatic activity/volume) 51 U/L 40-136 Serum or plasma aspartate aminotransfera se measurement (enzymatic activity/volume) 13 U/L 5-34 Serum or plasma alanine aminotransferase measurement (enzymatic activity/volume) 13 U/L 0-55 Serum or plasma protein measurement (mass/volume) 5.3 g/dL 6.4-8.2 Serum or plasma albumin measurement (mass/volume) 2.5 g/dL 3.2-4.5 Magnesium - 07/15/16 05:45 Magnesium 1.5 mg/dL 1.8-2.4 Bacteria identification in isolate by an aerobe culture - 08/08/16 09:37 Bacteria identification in isolate by anaerobe culture [facility] Gram stain microscopy - 08/08/16 09:37 GRAM STAIN RESULT NO BACTERIA [facility] Bacteria identification in wound by cult ure - 08/08/16 09:37 Bacteria identification in wound by culture [id number] NRG FREE TEXT EXTERNAL (NOT JK) NRG QUANTITY OF GROWTH Scant Growth NR Whole blood basic metabolic panel - 10/09 12/25 10:02 Serum or plasma sodium measurement (moles/volume) 137 mmol/L 135-145 Serum or plasma potassium measurement (moles/volume) 4.0 mmol/L 3.6-5.0 Serum or plasma chloride measurement (moles/volume) 107 mmol/L 98-107 Carbon dioxide 21 mmol/L 21-32 Serum or plasma anion gap determination (moles/volume) 9 mmol/L 5-14 Serum or plasma urea nitrogen measurement (mass/volume ) 14 mg/dL 7-18 Serum or plasma creatinine measurement (mass/volume) 0.74 mg/dL 0.60-1.30 Serum or plasma urea nitrogen/creatinine mass ratio 19 NRG Serum or plasma creatinine measurement w ith calculation of estimated glomerular filtration rate > NRG Serum or plasma glucose measurement (mass/volume) 113 mg/dL 70-105 Serum or plasma calcium measurement (mass/volume) 9.0 mg/dL 8.5-10.1 Automated blood complete blood count (he mogram) panel - 05/01/17 08:42 Blood leukocytes automated count (number/volume) 4.4 10*3/uL 4.3-11.0 Blood erythrocytes automated count (number/volume) 4.70 10*6/uL 4.35-5.85 Venous blood hemoglobin measurement (mass/volume) 14.2 g/dL 11.5-16.0 Blood hematocrit (volume fraction) 42 % 35-52 Automated erythrocyte mean corpuscular volume 88 [ foz_us] 80-99 Automated erythrocyte mean corpuscular h emoglobin (mass per erythrocyte) 30 pg 25-34 Automated erythrocyte mean corpuscular h emoglobin concentration measurement (mass/volume) 34 g/dL 32-36 Automated erythrocyte distribution width ratio 13. 3 % 10.0- 14.5 Automated blood platelet count [...] 5-14 Serum or plasma urea nitrogen measurement (mass/volume ) 27 mg/dL 7-18 Serum or plasma creatinine measurement (mass/volume) 0.75 mg/dL 0.60-1.30 Serum or plasma urea nitrogen/creatinine mass ratio 36 NRG Serum or plasma creatinine measurement w ith calculation of estimated glomerular filtration rate > NRG Serum or plasma glucose measurement (mass/volume) 94 mg/dL 70-105 Serum or plasma calcium measurement (mass/volume) 8.9 mg/dL 8.5-10.1 Serum or plasma total bilirubin measurement (mass/volu me) 0.3 mg/dL 0.1-1.0 Serum or plasma alkaline phosphatase jose surement (enzymatic activity/volume) 55 U/L 40-136 Serum or plasma aspartate aminotransfera se measurement (enzymatic activity/volume) 17 U/L 5-34 Serum or plasma alanine aminotransferase measurement (enzymatic activity/volume) 15 U/L 0-55 Serum or plasma protein measurement (mass/volume) 6.7 g/dL 6.4-8.2 Serum or plasma albumin measurement (mass/volume) 3.6 g/dL 3.2-4.5 Influenza virus A and B antigen detectio n - 07/19/17 17:05 FLU RESULT NEGATIVE FOR INFLUENZA A AND B ANTIGENS BY IA [facility] Complete blood count (CBC) with automate d white blood cell (WBC) differential - 07/19/17 19:00 Blood leukocytes automated count (number/volume) 7.2 10*3/uL 4.3-11.0 Blood erythrocytes automated count (number/volume) 4.46 10*6/uL 4.35-5.85 Venous blood hemoglobin measurement (mass/volume) 13.5 g/dL 11.5-16.0 Blood hematocrit (volume fraction) 40 % 35-52 Automated erythrocyte mean corpuscular volume 89 [ foz_us] 80-99 Automated erythrocyte mean corpuscular h emoglobin (mass per erythrocyte) 30 pg 25-34 Automated erythrocyte mean corpuscular h emoglobin concentration measurement (mass/volume) 34 g/dL 32-36 Automated erythrocyte distribution width ratio 13. 5 % 10.0- 14.5 Automated blood platelet count [...] 10*3 1.0-4.0 Blood monocytes automated count (number/volume) 0. 8 10*3 0.0-1.0 Automated eosinophil count 0.5 10*3/uL 0 .0-0.3 Automated blood basophil count (count/volume) 0.0 10*3/uL 0.0-0.1 Comprehensive metabolic panel - 07/19/17 19:00 Serum or plasma sodium measurement (moles/volume) 142 mmol/L 135-145 Serum or plasma potassium measurement (moles/volume) 4.3 mmol/L 3.6-5.0 Serum or plasma chloride measurement (moles/volume) 107 mmol/L 98-107 Carbon dioxide 25 mmol/L 21-32 Serum or plasma anion gap determination (moles/volume) 10 mmol/L 5-14 Serum or plasma urea nitrogen measurement (mass/volume ) 20 mg/dL 7-18 Serum or plasma creatinine measurement (mass/volume) 0.81 mg/dL 0.60-1.30 Serum or plasma urea nitrogen/creatinine mass ratio 25 NRG Serum or plasma creatinine measurement w ith calculation of estimated glomerular filtration rate > NRG Serum or plasma glucose measurement (mass/volume) 96 mg/dL 70-105 Serum or plasma calcium measurement (mass/volume) 8.9 mg/dL 8.5-10.1 Serum or plasma total bilirubin measurement (mass/volu me) 0.3 mg/dL 0.1-1.0 Serum or plasma alkaline phosphatase jose surement (enzymatic activity/volume) 70 U/L 40-136 Serum or plasma aspartate aminotransfera se measurement (enzymatic activity/volume) 18 U/L 5-34 Serum or plasma alanine aminotransferase measurement (enzymatic activity/volume) 16 U/L 0-55 Serum or plasma protein measurement (mass/volume) 6.9 g/dL 6.4-8.2 Serum or plasma albumin measurement (mass/volume) 3.8 g/dL 3.2-4.5 Lipase - 07/19/17 19:00 Lipase 21 U/L 8-78 TSH - 12/28/17 09:27 TSH 1.92 mIU/L NRG CBC - 01/28/18 10:19 WHITE BLOOD CELL COUNT 7.1 Thousand/uL 3 .8-10.8 RED BLOOD CELL COUNT 4.61 Million/uL 3.8 0-5.10 HEMOGLOBIN 13.4 g/dL 11.7-15.5 HEMATOCRIT 40.5 % 35.0-45.0 MCV 87.9 fL 80.0-100.0 MCH 29.1 pg 27.0-33.0 MCHC 33.1 g/dL 32.0-36.0 RDW 14.1 % 11.0-15.0 PLATELET COUNT 153 Thousand/uL 140-400 MPV 12.1 fL 7.5-12.5 ABSOLUTE NEUTROPHILS 4494 cells/uL 1500- 7800 ABSOLUTE LYMPHOCYTES 1711 cells/uL 850-3 900 ABSOLUTE MONOCYTES 767 cells/uL 200-950 ABSOLUTE EOSINOPHILS 99 cells/uL 15-500 ABSOLUTE BASOPHILS 28 cells/uL 0-200 NEUTROPHILS 63.3 % NRG LYMPHOCYTES 24.1 % NRG MONOCYTES 10.8 % NRG EOSINOPHILS 1.4 % NRG BASOPHILS 0.4 % NRG Automated blood complete blood count (he mogram) panel - 03/26/18 10:15 Blood leukocytes automated count (number/volume) 6.5 10*3/uL 4.3-11.0 Blood erythrocytes automated count (number/volume) 4.71 10*6/uL 4.35-5.85 Venous blood hemoglobin measurement (mass/volume) 13.8 g/dL 11.5-16.0 Blood hematocrit (volume fraction) 42 % 35-52 Automated erythrocyte mean corpuscular volume 89 [ foz_us] 80-99 Automated erythrocyte mean corpuscular h emoglobin (mass per erythrocyte) 29 pg 25-34 Automated erythrocyte mean corpuscular h emoglobin concentration measurement (mass/volume) 33 g/dL 32-36 Automated erythrocyte distribution width ratio 14. 4 % 10.0- 14.5 Automated blood platelet count (count/volume) 168 10*3/uL 130-400 Automated blood platelet mean volume measurement 10.9 [foz_us] 7.4-10.4 PT panel in platelet poor plasma by coag ulation assay - 03/26/18 10:15 Prothrombin time (PT) in platelet poor plasma by coagu lation assay 13.0 s 12.2-14.7 INR in platelet poor plasma or blood by coagulation as say 1.0 0.8-1.4 Activated partial thromboplastin time (a PTT) in platelet poor plasma bycoagulation assay - 03/26/18 10:15 Activated partial thromboplastin time (a PTT) in platelet poor plasma bycoagulation assay 28 s 24-35 Comprehensive metabolic panel - 03/26/18 10:15 Serum or plasma sodium measurement (moles/volume) 138 mmol/L 135-145 Serum or plasma potassium measurement (moles/volume) 4.3 mmol/L 3.6-5.0 Serum or plasma chloride measurement (moles/volume) 104 mmol/L 98-107 Carbon dioxide 24 mmol/L 21-32 Serum or plasma anion gap determination (moles/volume) 10 mmol/L 5-14 Serum or plasma urea nitrogen measurement (mass/volume ) 18 mg/dL 7-18 Serum or plasma creatinine measurement (mass/volume) 0.88 mg/dL 0.60-1.30 Serum or plasma urea nitrogen/creatinine mass ratio 20 NRG Serum or plasma creatinine measurement w ith calculation of estimated glomerular filtration rate > NRG Serum or plasma glucose measurement (mass/volume) 95 mg/dL 70-105 Serum or plasma calcium measurement (mass/volume) 9.4 mg/dL 8.5-10.1 Serum or plasma total bilirubin measurement (mass/volu me) 0.4 mg/dL 0.1-1.0 Serum or plasma alkaline phosphatase jose surement (enzymatic activity/volume) 63 U/L 40-136 Serum or plasma aspartate aminotransfera se measurement (enzymatic activity/volume) 24 U/L 5-34 Serum [...] Serum or plasma cholesterol in HDL measurement (mass/v olume) 44 mg/dL 40-60 Cholesterol in LDL [mass/volume] in serum or plasma by direct assay 92 mg/dL 1-129 Serum or plasma cholesterol in VLDL measurement (mass/ volume) 25 mg/dL 5-40 Methicillin resistant Staphylococcus aur eus (MRSA) screening culture - 03/26/18 10:15 Methicillin resistant Staphylococcus aureus (MRSA) scr eening culture NEG NRG Complete blood count (CBC) with automate d white blood cell (WBC) differential - 05/19/18 11:35 Blood leukocytes automated count (number/volume) 8.3 10*3/uL 4.3-11.0 Blood erythrocytes automated count (number/volume) 5.07 10*6/uL 4.35-5.85 Venous blood hemoglobin measurement (mass/volume) 14.3 g/dL 11.5-16.0 Blood hematocrit (volume fraction) 44 % 35-52 Automated erythrocyte mean corpuscular volume 86 [ foz_us] 80-99 Automated erythrocyte mean corpuscular h emoglobin (mass per erythrocyte) 28 pg 25-34 Automated erythrocyte mean corpuscular h emoglobin concentration measurement (mass/volume) 33 g/dL 32-36 Automated erythrocyte distribution width ratio 14. 6 % 10.0- 14.5 Automated blood platelet count [...] 10*3 1.0-4.0 Blood monocytes automated count (number/volume) 0. 9 10*3 0.0-1.0 Automated eosinophil count 0.3 10*3/uL 0 .0-0.3 Automated blood basophil count (count/volume) 0.0 10*3/uL 0.0-0.1 Comprehensive metabolic panel - 05/19/18 12:32 Serum or plasma sodium measurement (moles/volume) 139 mmol/L 135-145 Serum or plasma potassium measurement (moles/volume) 4.8 mmol/L 3.6-5.0 Serum or plasma chloride measurement (moles/volume) 109 mmol/L 98-107 Carbon dioxide 19 mmol/L 21-32 Serum or plasma anion gap determination (moles/volume) 11 mmol/L 5-14 Serum or plasma urea nitrogen measurement (mass/volume ) 22 mg/dL 7-18 Serum or plasma creatinine measurement (mass/volume) 0.91 mg/dL 0.60-1.30 Serum or plasma urea nitrogen/creatinine mass ratio 24 NRG Serum or plasma creatinine measurement w ith calculation of estimated glomerular filtration rate > NRG Serum or plasma glucose measurement (mass/volume) 94 mg/dL 70-105 Serum or plasma calcium measurement (mass/volume) 8.6 mg/dL 8.5-10.1 Serum or plasma total bilirubin measurement (mass/volu me) 0.3 mg/dL 0.1-1.0 Serum or plasma alkaline phosphatase jose surement (enzymatic activity/volume) 65 U/L 40-136 Serum or plasma aspartate aminotransfera se measurement (enzymatic activity/volume) 18 U/L 5-34 Serum or plasma alanine aminotransferase measurement (enzymatic activity/volume) 18 U/L 0-55 Serum or plasma protein measurement (mass/volume) 6.7 g/dL 6.4-8.2 Serum or plasma albumin measurement (mass/volume) 3.6 g/dL 3.2-4.5 CALCIUM CORRECTED 8.9 mg/dL 8.5-10.1 Lipase - 05/19/18 12:32 Lipase 12 U/L 8-78 Complete urinalysis with reflex to cultu re - 05/19/18 13:01 Urine color determination YELLOW NRG Urine clarity determination SLIGHTLY CLOUDY NRG Urine pH measurement by test strip 6.5 5-9 Specific gravity of urine by test strip 1.005 1.016-1.022 Urine protein assay by test strip, semi-quantitative NEGATIVE NEGATIVE Urine glucose detection by automated test strip NE GATIVE NEGATIVE Erythrocytes detection in urine sediment by light micr oscopy NEGATIVE NEGATIVE Urine ketones detection by automated test strip NE GATIVE NEGATIVE Urine nitrite detection by test strip NEGATIVE NEGATIVE Urine total bilirubin detection by test strip NEGA TIVE NEGATIVE Urine urobilinogen measurement by automated test strip (mass/volume) NORMAL NORMAL Urine leukocyte esterase detection by dipstick NEG ATIVE NEGATIVE Automated urine sediment erythrocyte cou nt by microscopy (number/high power field) NONE NRG Automated urine sediment leukocyte count by microscopy (number/high power field) NONE NRG Bacteria detection in urine sediment by light microsco py NEGATIVE NRG Squamous epithelial cells detection in u rine sediment by light microscopy 2-5 NRG Crystals detection in urine sediment by light microsco py NONE NRG Casts detection in urine sediment by light microscopy NONE NRG Mucus detection in urine sediment by light microscopy NEGATIVE NRG Complete urinalysis with reflex to culture NO NRG SUREPATH PAP AND HPV mRNA E6/E7 - 16:17 CLINICAL INFORMATION: NRG LMP: N/A NRG PREV. PAP: 2013- WNL NRG PREV. BX: NRG SOURCE: Vagina NRG STATEMENT OF ADEQUACY: NRG INTERPRETATION/RESULT: NRG [employer] CASE [employer]: NRG HPV mRNA E6/E7, SUREPATH VIAL Not Detected NOT DETECTED COMMENT NRG Arterial blood gas measurement - 9 10:44 Blood pCO2 44 mm[Hg] 35-45 Blood pO2 61 mm[Hg] 79-93 Arterial blood bicarbonate measurement (moles/volume) 27 mmol/L 23-27 Arterial blood base excess by calculation 2.5 mmol /L -2.5-2.5 Arterial blood oxygen saturation measurement 93 % 94-100 * Inhaled oxygen flow rate ROOM AIR NRG Arterial blood pH measurement with patient temperature correction 7.40 7.37-7.43 Arterial blood carbon dioxide, total measurement (mole s/volume) 28.4 mmol/L 21.0-31.0 Body site RT BRACH NRG Assessment of wrist artery patency prior to arterial p uncture YES-POS NRG Setting of ventilation mode NO NR G Measurement of body temperature 97.6 NRG Complete blood count (CBC) with automate d white blood cell (WBC) differential - 01/13/19 10:36 Blood leukocytes automated count (number/volume) 18.9 10*3/uL 4.3-11.0 Blood erythrocytes automated count (number/volume) 4.35 10*6/uL 4.35-5.85 Venous blood hemoglobin measurement (mass/volume) 12.3 g/dL 11.5-16.0 Blood hematocrit (volume fraction) 40 % 35-52 Automated erythrocyte mean corpuscular volume 92 [ foz_us] 80-99 Automated erythrocyte mean corpuscular h emoglobin (mass per erythrocyte) 28 pg 25-34 Automated erythrocyte mean corpuscular h emoglobin concentration measurement (mass/volume) 31 g/dL 32-36 Automated erythrocyte distribution width ratio 15. 1 % 10.0- 14.5 Automated blood platelet count (count/volume) 194 10*3/uL 130-400 Automated blood platelet mean volume measurement 10.5 [foz_us] 7.4-10.4 Automated blood neutrophils/100 leukocytes 84 % 42-75 Automated blood lymphocytes/100 leukocytes 8 % 12-44 Blood monocytes/100 leukocytes 8 % 0-12 Automated blood eosinophils/100 leukocytes 0 % 0-10 Automated blood basophils/100 leukocytes 0 % 0-10 Blood neutrophils automated count (number/volume) 15.9 10*3 1.8-7.8 Blood lymphocytes automated count (number/volume) 1.4 10*3 1.0-4.0 Blood monocytes automated count (number/volume) 1. 5 10*3 0.0-1.0 Automated eosinophil count 0.0 10*3/uL 0 .0-0.3 Automated blood basophil count (count/volume) 0.0 10*3/uL 0.0-0.1 Blood lactic acid measurement (moles/vol ume) - 01/13/19 10:36 Blood lactic acid measurement (moles/volume) 1.33 mmol/L 0.50-2.00 Comprehensive metabolic panel - 01/13/19 10:36 Serum or plasma sodium measurement (moles/volume) 139 mmol/L 135-145 Serum or plasma potassium measurement (moles/volume) 3.9 mmol/L 3.6-5.0 Serum or plasma chloride measurement (moles/volume) 105 mmol/L 98-107 Carbon dioxide 25 mmol/L 21-32 Serum or plasma anion gap determination (moles/volume) 9 mmol/L 5-14 Serum or plasma urea nitrogen measurement (mass/volume ) 20 mg/dL 7-18 Serum or plasma creatinine measurement (mass/volume) 1.02 mg/dL 0.60-1.30 Serum or plasma urea nitrogen/creatinine mass ratio 20 NRG Serum or plasma creatinine measurement w ith calculation of estimated glomerular filtration rate 56 NRG Serum or plasma glucose measurement (mass/volume) 140 mg/dL 70-105 Serum or plasma calcium measurement (mass/volume) 9.0 mg/dL 8.5-10.1 Serum or plasma total bilirubin measurement (mass/volu me) 0.5 mg/dL 0.1-1.0 Serum or plasma alkaline phosphatase jose surement (enzymatic activity/volume) 81 U/L 40-136 Serum or plasma aspartate aminotransfera se measurement (enzymatic activity/volume) 11 U/L 5-34 Serum or plasma alanine aminotransferase measurement (enzymatic activity/volume) 13 U/L 0-55 Serum or plasma protein measurement (mass/volume) 7.1 g/dL 6.4-8.2 Serum or plasma albumin measurement (mass/volume) 3.4 g/dL 3.2-4.5 CALCIUM CORRECTED 9.5 mg/dL 8.5-10.1 PT panel in platelet poor plasma by coag ulation assay - 01/13/19 10:36 Prothrombin time (PT) in platelet poor plasma by coagu lation assay 14.2 s 12.2-14.7 INR in platelet poor plasma or blood by coagulation as say 1.1 0.8-1.4 Activated partial thromboplastin time (a PTT) in platelet poor plasma bycoagulation assay - 01/13/19 10:36 Activated partial thromboplastin time (a PTT) in platelet poor plasma bycoagulation assay 32 s 24-35 Manual absolute plasma cell count - 10/27 10:36 Blood monocytes/100 leukocytes 5 % NRG Manual blood segmented neutrophils/100 leukocytes 83 % NRG Blood band neutrophils/100 leukocytes 3 % NRG Manual blood lymphocytes/100 leukocytes 9 % NRG Manual eosinophils/100 leukocytes in nose 0 % NRG Manual blood basophils/100 leukocytes 0 % NR Blood anisocytosis detection by light microscopy S LIGHT NR Bacterial blood culture - 01/13/19 10:36 Bacterial blood culture NG NR Arterial blood gas measurement - 9 10:57 Blood pCO2 57 mm[Hg] 35-45 Blood pO2 35 mm[Hg] 79-93 Arterial blood bicarbonate measurement (moles/volume) 28 mmol/L 23-27 Arterial blood base excess by calculation 3.0 mmol /L -2.5-2.5 Arterial blood oxygen saturation measurement 54 % 94-100 * Inhaled oxygen flow rate 22 NRG Arterial blood pH measurement with patient temperature correction 7.32 7.37-7.43 Arterial blood carbon dioxide, total measurement (mole s/volume) 29.8 mmol/L 21.0-31.0 Body site R RAD NRG Assessment of wrist artery patency prior to arterial p uncture YES-POS NRG Setting of ventilation mode NO NR G Measurement of body temperature 101.8 NRG Bacterial blood culture - 01/13/19 11:35 QUANTITY OF GROWTH . NRG Bacterial blood culture SEE COMMEN NRG Complete urinalysis with reflex to cultu re - 01/13/19 11:50 Urine color determination YELLOW NRG Urine clarity determination VERY CLOUDY NRG Urine pH measurement by test strip 8 5-9 Specific gravity of urine by test strip 1.015 1.016-1.022 Urine protein assay by test strip, semi-quantitative NEGATIVE NEGATIVE Urine glucose detection by automated test strip NE GATIVE NEGATIVE Erythrocytes detection in urine sediment by light micr oscopy 3+ NEGATIVE Urine ketones detection by automated test strip NE GATIVE NEGATIVE Urine nitrite detection by test strip NEGATIVE NEGATIVE Urine total bilirubin detection by test strip NEGA TIVE NEGATIVE Urine urobilinogen measurement by automated test strip (mass/volume) 1 mg/dL NORMAL Urine leukocyte esterase detection by dipstick 2+ NEGATIVE Automated urine sediment erythrocyte cou nt by microscopy (number/high power field) [HPF] NRG Automated urine sediment leukocyte count by microscopy (number/high power field) [HPF] NRG Bacteria detection in urine sediment by light microsco py MODERATE NRG Squamous epithelial cells detection in u rine sediment by light microscopy 5-10 NRG Crystals detection in urine sediment by light microsco py PRESENT NRG Casts detection in urine sediment by light microscopy NONE NRG Mucus detection in urine sediment by light microscopy NEGATIVE NRG Complete urinalysis with reflex to culture CULTURE PENDING NRG Amorphous sediment detection in urine sediment by ligh t microscopy FEW KINZA PHOSPHATE NRG Bacterial urine culture - 01/13/19 11:50 Bacterial urine culture 3 OR MORE NRG COLONY COUNT 70,000 cfu/ml NRG FTX;REPORTABLE GRAM POSITIVES, SUGGESTING PROBABLE NRG FREE TEXT ENTRY 2 COLLECTION CONTAMINATION WITH SK IN CONSTANZA NRG FREE TEXT ENTRY 3 NO SUSCEPTIBILITY PERFORMED NRG Sputum Gram stain - 01/14/19 03:29 Sputum Gram stain No bacteria seen NRG Bacterial sputum culture - 01/14/19 03:2 9 FREE TEXT EXTERNAL SEE COMMENTS NRG QUANTITY OF GROWTH Rare NR FREE TEXT ENTRY 2 ID REPORTED 01/16/19 13:05 [facility] Bacterial sputum culture [id number] [facility] Complete blood count (CBC) with automate d white blood cell (WBC) differential - 01/14/19 04:45 Blood leukocytes automated count (number/volume) 15.6 10*3/uL 4.3-11.0 Blood erythrocytes automated count (number/volume) 4.22 10*6/uL 4.35-5.85 Venous blood hemoglobin measurement (mass/volume) 12.2 g/dL 11.5-16.0 Blood hematocrit (volume fraction) 39 % 35-52 Automated erythrocyte mean corpuscular volume 92 [ foz_us] 80-99 Automated erythrocyte mean corpuscular h emoglobin (mass per erythrocyte) 29 pg 25-34 Automated erythrocyte mean corpuscular h emoglobin concentration measurement (mass/volume) 31 g/dL 32-36 Automated erythrocyte distribution width ratio 14. 7 % 10.0- 14.5 Automated blood platelet count (count/volume) 172 10*3/uL 130-400 Automated blood platelet mean volume measurement 10.8 [foz_us] 7.4-10.4 Automated blood neutrophils/100 leukocytes 89 % 42-75 Automated blood lymphocytes/100 leukocytes 6 % 12-44 Blood monocytes/100 leukocytes 5 % 0-12 Automated blood eosinophils/100 leukocytes 0 % 0-10 Automated blood basophils/100 leukocytes 0 % 0-10 Blood neutrophils automated count (number/volume) 13.9 10*3 1.8-7.8 Blood lymphocytes automated count (number/volume) 0.9 10*3 1.0-4.0 Blood monocytes automated count (number/volume) 0. 8 10*3 0.0-1.0 Automated eosinophil count 0.0 10*3/uL 0 .0-0.3 Automated blood basophil count (count/volume) 0.0 10*3/uL 0.0-0.1 Comprehensive metabolic panel - 01/14/19 04:45 Serum or plasma sodium measurement (moles/volume) 142 mmol/L 135-145 Serum or plasma potassium measurement (moles/volume) 3.9 mmol/L 3.6-5.0 Serum or plasma chloride measurement (moles/volume) 110 mmol/L 98-107 Carbon dioxide 22 mmol/L 21-32 Serum or plasma anion gap determination (moles/volume) 10 mmol/L 5-14 Serum or plasma urea nitrogen measurement (mass/volume ) 21 mg/dL 7-18 Serum or plasma creatinine measurement (mass/volume) 0.80 mg/dL 0.60-1.30 Serum or plasma urea nitrogen/creatinine mass ratio 26 NRG Serum or plasma creatinine measurement w ith calculation of estimated glomerular filtration rate > NRG Serum or plasma glucose measurement (mass/volume) 171 mg/dL 70-105 Serum or plasma calcium measurement (mass/volume) 9.5 mg/dL 8.5-10.1 Serum or plasma total bilirubin measurement (mass/volu me) 0.3 mg/dL 0.1-1.0 Serum or plasma alkaline phosphatase jose surement (enzymatic activity/volume) 79 U/L 40-136 Serum or plasma aspartate aminotransfera se measurement (enzymatic activity/volume) 7 U/L 5-34 Serum or plasma alanine aminotransferase measurement (enzymatic activity/volume) 12 U/L 0-55 Serum or plasma protein measurement (mass/volume) 6.2 g/dL 6.4-8.2 Serum or plasma albumin measurement (mass/volume) 3.3 g/dL 3.2-4.5 CALCIUM CORRECTED 10.1 mg/dL 8.5-10.1 Complete blood count (CBC) with automate d white blood cell (WBC) differential - 01/15/19 05:45 Blood leukocytes automated count (number/volume) 12.0 10*3/uL 4.3-11.0 Blood erythrocytes automated count (number/volume) 4.04 10*6/uL 4.35-5.85 Venous blood hemoglobin measurement (mass/volume) 11.5 g/dL 11.5-16.0 Blood hematocrit (volume fraction) 37 % 35-52 Automated erythrocyte mean corpuscular volume 92 [ foz_us] 80-99 Automated erythrocyte mean corpuscular h emoglobin (mass per erythrocyte) 28 pg 25-34 Automated erythrocyte mean corpuscular h emoglobin concentration measurement (mass/volume) 31 g/dL 32-36 Automated erythrocyte distribution width ratio 15. 2 % 10.0- 14.5 Automated blood platelet count (count/volume) 182 10*3/uL 130-400 Automated blood platelet mean volume measurement 10.4 [foz_us] 7.4-10.4 Automated blood neutrophils/100 leukocytes 76 % 42-75 Automated blood lymphocytes/100 leukocytes 17 % 12-44 Blood monocytes/100 leukocytes 8 % 0-12 Automated blood eosinophils/100 leukocytes 0 % 0-10 Automated blood basophils/100 leukocytes 0 % 0-10 Blood neutrophils automated count (number/volume) 9.0 10*3 1.8-7.8 Blood lymphocytes automated count (number/volume) 2.0 10*3 1.0-4.0 Blood monocytes automated count (number/volume) 0. 9 10*3 0.0-1.0 Automated eosinophil count 0.0 10*3/uL 0 .0-0.3 Automated blood basophil count (count/volume) 0.0 10*3/uL 0.0-0.1 Whole blood basic metabolic panel - 7 05:45 Serum or plasma sodium measurement (moles/volume) 143 mmol/L 135-145 Serum or plasma potassium measurement (moles/volume) 3.9 mmol/L 3.6-5.0 Serum or plasma chloride measurement (moles/volume) 110 mmol/L 98-107 Carbon dioxide 23 mmol/L 21-32 Serum or plasma anion gap determination (moles/volume) 10 mmol/L 5-14 Serum or plasma urea nitrogen measurement (mass/volume ) 22 mg/dL 7-18 Serum or plasma creatinine measurement (mass/volume) 0.80 mg/dL 0.60-1.30 Serum or plasma urea nitrogen/creatinine mass ratio 28 NRG Serum or plasma creatinine measurement w ith calculation of estimated glomerular filtration rate > NRG Serum or plasma glucose measurement (mass/volume) 121 mg/dL 70-105 Serum or plasma calcium measurement (mass/volume) 9.0 mg/dL 8.5-10.1 Methicillin resistant Staphylococcus aur eus (MRSA) screening culture - 08/26/19 06:19 Methicillin resistant Staphylococcus aureus (MRSA) scr eening culture NEG NRG [id number] - 11/12/19 10:17 Serum or plasma urea nitrogen measurement (mass/volume ) 16 mg/dL 7-18 Serum or plasma creatinine measurement (mass/volume) 0.88 mg/dL 0.60-1.30 Serum or plasma urea nitrogen/creatinine mass ratio 18 NRG Serum or plasma creatinine measurement w ith calculation of estimated glomerular filtration rate > NRG COVID-19 ([facility]) - 11/21/19 11:12 TSH - 11/21/19 11:13 TSH 4.81 mIU/L 0.40-4.50 Coronavirus SARS-CoV-2 SO 2018 - 0 07:59 Coronavirus Ab [Units/volume] in Serum Negative Negative Encounters ACCT No. Visit Date/Time Discharge Status Pt. Type Provider Facility Loc./Unit Complaint [id number] 07/06/2014 11:51:00 07/06/2014 23:59: 59 CLS Outpatient JOSIAH RETAIL BUSINESS MANAGER, RASHEED S [id number] 06/03/2014 10:36:00 06/03/2014 23:59: 59 CLS Outpatient JOSIAH RETAIL BUSINESS MANAGER, RASHEED S [id number] 06/03/2014 10:36:00 06/03/2014 23:59: 59 CLS Outpatient JOSIAH RETAIL BUSINESS MANAGER, RASHEED S [id number] 04/17/2014 10:45:00 04/17/2014 23:59: 59 CLS Outpatient JACK YUAN DO [id number] 03/19/2014 11:26:00 03/19/2014 23:59: 59 CLS Outpatient JOSIAH RETAIL BUSINESS MANAGER, RASHEED S [id number] 01/22/2014 13:09:00 01/22/2014 23:59: 59 CLS Outpatient ARIAS GRAJEDA MD [id number] 01/05/2014 09:23:00 01/05/2014 23:59: 59 CLS Outpatient JOSIAH RETAIL BUSINESS MANAGER, RASHEED S [id number] 01/05/2014 09:23:00 01/05/2014 23:59: 59 CLS Outpatient JOSIAH RETAIL BUSINESS MANAGER, RASHEED S [id number] 12/02/2013 11:14:00 12/02/2013 23:59: 59 CLS Outpatient JOSIAH RETAIL BUSINESS MANAGER, RASHEED S [id number] 11/20/2013 13:23:00 11/20/2013 23:59: 59 CLS Outpatient JOSIAH RETAIL BUSINESS MANAGER, RASHEED S [id number] 11/20/2013 13:23:00 11/20/2013 23:59: 59 CLS Outpatient JOSIAH RETAIL BUSINESS MANAGER, RASHEED S [id number] 11/20/2013 12:59:00 11/20/2013 23:59: 59 CLS Outpatient JACK YUAN DO [id number] 11/17/2013 10:47:00 11/17/2013 23:59: 59 CLS Outpatient NANCY ANAYA APRN [id number] 09/11/2013 08:36:00 09/11/2013 23:59: 59 CLS Outpatient JOSIAH RETAIL BUSINESS MANAGERNAKIARASHEED S [id number] 09/11/2013 08:36:00 09/11/2013 23:59: 59 CLS Outpatient JOSIAH RETAIL BUSINESS MANAGERNAKIARASHEED S [id number] 09/04/2013 15:45:00 09/04/2013 23:59: 59 CLS Outpatient JACK YUAN DO [id number] 08/15/2013 08:26:00 08/15/2013 23:59: 59 CLS Outpatient AMINA MATHTEWS MD [id number] 07/10/2013 13:22:00 07/10/2013 23:59: 59 CLS Outpatient JOSIAH RETAIL BUSINESS MANAGERNAKIARASHEED S [id number] 06/02/2013 09:17:00 06/02/2013 23:59: 59 CLS Outpatient JOSIAH RETAIL BUSINESS MANAGERNAKIARASHEED S [id number] 06/02/2013 09:17:00 06/02/2013 23:59: 59 CLS Outpatient JOSIAH RETAIL BUSINESS MANAGERNAKIARASHEED S [id number] 02/12/2013 13:47:00 02/12/2013 23:59: 59 CLS Outpatient JOSIAH RETAIL BUSINESS MANAGERNAKIARASHEED S [id number] 02/12/2013 13:47:00 02/12/2013 23:59: 59 CLS Outpatient JOSIAH RETAIL BUSINESS MANAGERNAKIARASHEED S [id number] 06/27/2012 09:44:00 06/27/2012 23:59: 59 CLS Outpatient JOSIAH RETAIL BUSINESS MANAGER, RASHEED S [id number] 04/02/2012 09:21:00 04/02/2012 23:59: 59 CLS Outpatient [id number] 04/02/2012 09:21:00 04/02/2012 23:59:5 9 CLS Outpatient JOSIAH RETAIL BUSINESS MANAGER RASHEED S [id number] 01/07/2013 09:53:00 Document Registration [id number] 10/15/2012 10:07:00 Document Registration [id number] 01/09/2020 11:00:00 01/09/2020 23:59:5 9 CLS Outpatient [facility]HA[facility] [id number] 11/21/2019 10:00:00 Document Registration [id number] 11/21/2019 10:00:00 Document Registration [id number] 05/21/2018 14:00:00 Document Registration [id number] 01/28/2018 09:40:00 Document Registration [id number] 12/28/2017 09:00:00 Document Registration [id number] 12/30/2019 07:49:00 23:59:59 CLS Outpatient LEANNA VILLA APRN [facility] RAD ABNORMAL FINDIN GS OF LUNG FIELD [id number] 12/23/2019 06:58:00 10:45:00 DIS Outpatient CESAR PATTON DO [facility] ENDO ABD PAIN/CHANGE IN CHANDU L HABITS [id number] 12/18/2019 05:34:00 13:44:00 DIS Outpatient CESAR PATTON DO [facility] PREOP COLONOSCOPY [id number] 12/05/2019 07:14:00 23:59:59 CLS Outpatient JOSEE ESCOTO FACC, ROGER MARIE CC DS [facility] CARD SOB,CURRENT TOBACCO USE,COPD,CAROTID ART DISEASE [id number] 11/06/2019 10:15:00 23:59:59 CLS Outpatient LEANNA VILLA APRN [facility] RAD ABN CT [id number] 08/26/2019 05:57:00 10:03:00 DIS Outpatient RYAN JONES MD [facility] SDC INCONTINENCE [id number] 08/19/2019 10:16:00 10:55:00 DIS Outpatient RYAN JONES MD [facility] PREOP INCONTINENCE [id number] 07/08/2019 08:31:00 10:45:00 DIS Outpatient CESAR PATTON DO [facility] ENDO CHANGE IN BOWEL HABITS [id number] 07/01/2019 05:36:00 13:10:00 DIS Outpatient CESAR PATTON DO [facility] PREOP COLONOSCOPY [id number] 05/12/2019 07:58:00 23:59:59 CLS Outpatient SOSA RESENDIZ MD [facility] WOUNDCARE [id number] 04/11/2019 07:35:00 23:59:59 CLS Outpatient LEANNA VILLA RETAIL BUSINESS MANAGER [facility] RAD COPD [id number] 04/11/2019 12:50:00 13:14:00 DIS Outpatient CESAR PATTON DO [facility] PREOP COLONOSCOPY [id number] 03/18/2019 05:56:00 09:15:00 DIS Outpatient PATTON CESAR HDEZ [facility] ENDO SCREENING/DYSPHAGIA/EPI GASTRIC ABD PAIN [id number] 2019 05:29:00 10:13:00 DIS Outpatient CESAR PATTON DO [facility] PREOP COLONOSCOPY/EGD [id number] 02/18/2019 08:22:00 23:59:59 CLS Outpatient SOSA HENRY MD [facility] RAD UNILATERAL THROAT PAIN [id number] 01/13/2019 12:14:00 12:48:00 DIS Inpatient LUZMA ESCOTO, YAMILET Guevara [facility] 4TH RLL PNEUMONIA;COPD [id number] 11/28/2018 08:52:00 23:59:59 CLS Outpatient THOMAS JENNINGS [facility] RAD SWALLOWING PROBLEM [id number] 11/25/2018 00:12:00 23:59:59 CLS Preadmit LEANNA VILLA APRN [facility] PULM COPD [id number] 08/26/2018 09:05:00 00:01:00 DIS Outpatient LEANNA VILLA APRN [facility] PULM COPD [id number] 10/21/2018 11:02:00 23:59:59 CLS Outpatient LEANNA VILLA RETAIL BUSINESS MANAGER [facility] RAD COPD, HYPERSOMN IA, SLEEP DISORDER [id number] 07/27/2018 19:07:00 019 06:04:00 DIS Outpatient LEANNA VILLA RETAIL BUSINESS MANAGER [facility] SLEEP SOB [id number] 07/26/2018 12:52:00 23:59:59 CLS Outpatient LEANNA VILLA RETAIL BUSINESS MANAGER [facility] RT SOB [id number] 07/15/2018 11:27:00 23:59:59 CLS Outpatient LEANNA VILLA RETAIL BUSINESS MANAGER [facility] RAD SOB [id number] 07/03/2018 11:28:00 12:13:00 DIS Outpatient JEN SANTIAGO MD [facility] REHAB S/P L RCR [id number] 07/01/2018 16:35:00 23:59:59 CLS Preadmit LEANNA VILLA RETAIL BUSINESS MANAGER [facility] RT SOB [id number] 06/06/2018 09:20:00 018 16:20:00 DIS Outpatient JEN SANTIAGO MD [facility] REHAB S/P RCR [id number] 05/28/2018 09:00:00 018 23:59:59 CLS Outpatient SAKINA PARRA RETAIL BUSINESS MANAGER [facility] RAD SCREENING [id number] 05/19/2018 10:58:00 14:27:00 DIS Emergency LIBERTY SANDOVAL RETAIL BUSINESS MANAGER [facility] ER VOMITING,DIARRHEA [id number] 04/19/2018 10:58:00 23:59:59 CLS Outpatient COURTNEY HONG ASSOCIATE OF SCIENCE IN NURSING [facility] CARD OCCUSION AND ST ENOSIS OF BILAT CAROTID ARTERIES [id number] 03/26/2018 08:36:00 018 23:59:59 CLS Outpatient COURTNEY HONG [facility] RAD OCCLUSION AND S TENOSIS OF BILAT CAROTID ARTERIES [id number] 03/26/2018 09:40:00 018 16:00:00 DIS Outpatient JOSEE ESCOTO FACLuciana, ROGER MARIE CC DS [facility] CATH MICHELLE N,SOB,BILAT LEG EDEMA [id number] 03/17/2018 10:55:00 018 12:14:00 DIS Emergency JUANA GODWIN MD [facility] ER POSS ALLERGIC R EACTION [id number] 03/05/2018 11:40:00 018 23:59:59 CLS Outpatient COURTNEY HONG [facility] RAD I10 HTN [id number] 09/12/2017 08:19:00 018 10:48:00 DIS Outpatient JEN SANTIAGO MD [facility] REHAB LT SHOULDER RCR [id number] 08/23/2017 08:00:00 018 00:01:00 DIS Outpatient JEN SANTIAGO MD [facility] REHAB LT SHOULDER RCR [id number] 07/19/2017 16:27:00 018 20:52:00 DIS Emergency GERMAN HENDERSON MD [facility] ER VOMITING, CANT EAT [id number] 05/28/2017 10:12:00 017 23:59:59 CLS Outpatient SOSA RESENDIZ MD [facility] WOUNDCARE [id number] 05/21/2017 08:43:00 017 23:59:59 CLS Outpatient SOSA RESENDIZ MD [facility] WOUNDCARE [id number] 05/10/2017 07:08:00 017 23:59:59 CLS Outpatient JOSEE ESCOTO FACC, ROGER MARIE CC DS [facility] CARD R06.02 SOB [id number] 05/08/2017 09:13:00 23:59:59 CLS Outpatient MEDARDO DUFFY MD [facility] RAD SCREENING [id number] 05/01/2017 08:15:00 23:59:59 CLS Outpatient JEN SANTIAGO MD [facility] LAB PRE OP LABS [id number] 11/22/2016 11:00:00 23:59:59 CLS Preadmit SSOA GUSMAN MD [facility] RAD SHOULDER JOINT PAIN M25 .512 [id number] 10/25/2016 09:50:00 23:59:59 CLS Outpatient MEDARDO DUFFY MD [facility] LAB Z79.899 [id number] 09/08/2016 08:23:00 14:54:00 DIS Outpatient SOSA RESENDIZ MD [facility] WOUNDCARE [id number] 07/29/2016 07:42:00 017 23:59:59 CLS Outpatient SOSA GUSMAN MD [facility] RAD COMPLETE ROTATOR CUFF TEAR OR RUPTURE [id number] 07/12/2016 18:16:00 13:40:00 DIS Inpatient YAMILET SEGAL MD [facility] 4TH HYPOKALEMIA, NEUROTIC S KIN WOUND LEFT THIGH [id number] 04/12/2016 11:25:00 16:00:00 DIS Inpatient LAURA ROBLERO MD [facility] ICU HYPOTENSION DIZZINESS A CUTE RENAL FAILURE [id number] 04/03/2016 09:24:00 016 23:59:59 CLS Outpatient RASHEED RAHMAN [facility] RAD BREAST CANCER SCREENIN G [id number] 01/05/2016 10:45:00 016 13:49:00 DIS Outpatient SOSA GUSMAN MD [facility] REHAB R SHOULDER SCOPE;BICEP TENOTOMY;DCE;SAD [id number] 01/12/2016 15:26:00 23:59:59 CLS Outpatient DINO TILLMAN [facility] RAD R PROXIMAL FOREARM MAS [id number] 01/04/2016 09:53:00 10:47:00 DIS Emergency LIBERTY SANDOVAL EDUARDA [facility] ER BEE STING [id number] 12/27/2015 19:50:00 05:30:00 DIS Outpatient RASHEED RAHMAN [facility] SLEEP SNORING,CHOKING/GASPIN G,DAYTIME SLEEPINESS [id number] 12/08/2015 10:23:00 15:32:00 DIS Outpatient SOSA GUSMAN MD [facility] ARTHRITIS [id number] 11/25/2015 13:03:00 13:32:00 DIS Outpatient SOSA GUSMAN MD [facility] PREOP ARTHRITIS [id number] 05/17/2015 10:40:00 23:59:59 CLS Outpatient MORAIMA NOEL DO [facility] LAB INFECTION [id number] 04/30/2015 10:56:00 23:59:59 CLS Outpatient MORAIMA NOEL DO [facility] RAD COPD,BRONCHITIS [id number] 04/21/2015 07:48:00 11:40:00 DIS Outpatient SOSA GUSMAN MD [facility] RIGHT CARPAL TUNNEL SY NDROME [id number] 04/12/2015 08:19:00 23:59:59 CLS Outpatient SOSA GUSMAN MD [facility] PREOP RIGHT CARPAL TUNNEL RE LEASE [id number] 03/30/2015 10:44:00 23:59:59 CLS Outpatient MORAIMA NOEL DO [facility] LAB CHECK FOR DRUGS [id number] 03/24/2015 09:00:00 13:15:00 DIS Outpatient SOSA GUSMAN MD [facility] LEFT CARPAL TUNNEL SYN DROME [id number] 03/19/2015 10:46:00 23:59:59 CLS Outpatient RASHEED RAHMAN [facility] RAD SCREENING [id number] 02/10/2015 10:43:00 11:26:00 DIS Outpatient SOSA GUSMAN MD [facility] REHAB L SHOULDER; BICEP TENO JARETT; OPEN RC REPAIR [id number] 01/13/2015 06:00:00 10:55:00 DIS Outpatient SOSA GUSMAN MD [facility] LEFT SHOULDER SLAP TEA R; ROTATOR CUFF TEAR [id number] 01/07/2015 09:59:00 23:59:59 CLS Outpatient SOSA GUSMAN MD [facility] PREOP LEFT SHOULDER SLAP TEA R; ROTATOR CUFF TEAR [id number] 11/11/2014 08:36:00 13:50:00 DIS Outpatient NARAYAN ALMARAZ MD [facility] DYSKNESIA [id number] 11/06/2014 12:39:00 23:59:59 CLS Outpatient NARAYAN ALMARAZ MD [facility] PREOP DYSKNESIA [id number] 10/29/2014 09:26:00 23:59:59 CLS Outpatient MORAIMA NOEL DO [facility] CARD PAIN IN RIGHT U PPER QUADRANT [id number] 10/22/2014 08:21:00 23:59:59 CLS Outpatient MORAIMA NOEL DO [facility] RAD RUQ PAIN [id number] 10/12/2014 10:02:00 23:59:59 CLS Outpatient MORAIMA NOEL DO [facility] RAD FELL RT KNEE PA IN, LOWER BACK PAIN [id number] 09/23/2014 06:00:00 10:20:00 DIS Outpatient RYAN JONES MD [facility] INTRINSIC SPHINCTER DEF ICIENCY; INCONTINENCE [id number] 09/16/2014 10:27:00 23:59:59 CLS Outpatient RYAN JONES MD [facility] PREOP INTRINSIC SPHINCTER DEF ICIENCY; INCONTINENCE [id number] 07/28/2014 09:04:00 23:59:59 CLS Outpatient SOSA GUSMAN MD [facility] RAD LEFT SHOULDER RTC [id number] 04/10/2014 14:46:00 15:58:00 DIS Emergency LIBERTY SANDOVAL APRN [facility] ER FEVER, SOA, DIARRHEA [id number] 04/07/2014 13:56:00 17:00:00 DIS Outpatient RASHEED RAHMAN [facility] REHAB KNEE PAIN [id number] 03/04/2014 06:00:00 10:10:00 DIS Outpatient SOSA GUSMAN MD [facility] LEFT KNEE CHONDROMALAS IA [id number] 02/27/2014 11:49:00 23:59:59 CLS Outpatient SOSA GUSMAN MD [facility] PREOP LEFT KNEE CHONDROMALAS IA [id number] 02/10/2014 09:42:00 17:00:00 DIS Outpatient JOSEE ESCOTO FACCROGER FACP CC DS [facility] CATH ANGINA SOB DIZZINESS [id number] 02/03/2014 09:43:00 23:59:59 CLS Outpatient RASHEED RAHMAN [facility] RAD SCREENING [id number] 01/30/2014 08:46:00 23:59:59 CLS Outpatient JAMIE LOVE MD [facility] RECTAL BLEEDING [id number] 01/29/2014 09:11:00 23:59:59 CLS Outpatient JAMIE LOVE MD [facility] PREOP RECTAL BLEEDING [id number] 10/15/2013 08:45:00 014 12:22:00 DIS Outpatient DINO TILLMAN [facility] REHAB B LE WEAKNESS;S/P R TKA ;SEVERE L DJD [id number] 01/09/2013 11:24:00 013 23:59:59 CLS Outpatient RASHEED RAHMAN [facility] RAD SCREENING [id number] 01/19/2020 12:30:00 P EN Preadmit THOMAS JENNINGS [facility] RAD LEFT ANTERIOR KNEE PAIN [id number] 01/13/2020 07:35:[address] Outpatient JOSEE ESCOTO FACCROGER FACP CCDS [facility] CATH CHEST PAIN [id number] 07/29/2018 10:52:00 Document Registration [id number] 03/17/2015 09:34:00 Document Registration [id number] 07/27/2014 13:00:00 Document Registration [id number] 01/15/2012 10:47:00 Document Registration [id number] 10/23/2011 05:44:00 Document Registration [id number] 10/20/2011 09:40:00 Document Registration [id number] 08/12/2011 21:58:00 Document Registration [id number] 05/12/2010 11:10:00 Document Registration
== END 2020-01-13 14:15 ==
LOC: CATH 07:35 → SDC 11:20 → CATH 14:15
PROVIDERS: ATTEND Internal Medicine Cardiovascular Disease
DX: I25.10 Atherosclerotic heart disease of native coronary artery without angina pectoris (principal); R94.39 Abnormal result of other cardiovascular function study; J44.9 Chronic obstructive pulmonary disease, unspecified; G47.10 Hypersomnia, unspecified; E78.5 Hyperlipidemia, unspecified; I10 Essential (primary) hypertension; K21.9 Gastro-esophageal reflux disease without esophagitis; E66.2 Morbid (severe) obesity with alveolar hypoventilation; Z68.43 Body mass index [BMI] 50.0-59.9, adult; F17.210 Nicotine dependence, cigarettes, uncomplicated; Z79.51 Long term (current) use of inhaled steroids; Z88.5 Allergy status to narcotic agent; Z88.8 Allergy status to other drugs, medicaments and biological substances; Z88.2 Allergy status to sulfonamides; Z91.030 Bee allergy status; Z90.710 Acquired absence of both cervix and uterus; Z90.49 Acquired absence of other specified parts of digestive tract
CPT/HCPCS: 80053; 80061; 85027; 85610; 85730; 87081; 93458; C1760; C1894; 36415

== ENCOUNTER → 2020-01-19 | Outpatient (CLI) | payer MEDICARE, MEDICAID ==
[~2020-01-19] MED LIST changes: +CETI10TA17 PO; +DOCU100C37 PO; +FAMO20TA25 PO; +PANT40TA3 PO; +TIZA4CAP8 PO; +TRAZ-227 PO
--- NOTE | 2020-01-19 12:46 | Diagnostic Imaging Report ---
EXAMINATION: Magnetic resonance imaging of the left knee without intravenous contrast. DATE: January 19, 2020. COMPARISON: Radiographs November 21, 2011. INDICATION: 59-year-old female, left knee pain. TECHNIQUE: Multiplanar, multisequence non contrast enhanced MR imaging was accomplished. FINDINGS: MENISCI: There is an oblique tear with some multidirectional components involving the anterior horn/body junction, body, and posterior horn of the medial meniscus extending towards the posterior root attachment. There is medial meniscal extrusion measuring 6 mm. There is a free edge tear involving the body of the lateral meniscus, perhaps best illustrated on coronal PD sequence image 12. LIGAMENTS AND TENDONS: The anterior and posterior cruciate ligaments are intact. There is mass effect on the superficial component of the medial collateral ligament complex relating to the extruded medial meniscus. The medial collateral ligament complex is otherwise intact. The iliotibial band, mid third lateral capsular ligament, fibular collateral ligament, biceps femoris tendon, and conjoined tendon are intact. The quadriceps tendon and patella ligament are intact. JOINT: There are broad areas of near full-thickness cartilage loss involving the medial compartment. The lateral and patellofemoral compartment cartilage is grossly intact. There is a small knee joint effusion. There is no identified intra-articular body or prominent synovitis. BONE: There is edema-like signal in the medial tibial plateau without identified fracture line. There is very minimal marrow edema in the adjacent medial femoral condyle. The additional bone marrow signal is unremarkable. There is no identified fracture line or pathognomonic signal changes of osteonecrosis. BURSAE AND SOFT TISSUES: There is a very small Ward's cyst. IMPRESSION: 1. Oblique tear with some multidirectional components involving the anterior horn/body junction, body, posterior horn, and posterior root attachment of the medial meniscus with 6 mm medial meniscal extrusion. 2. Tear involving the body of the lateral meniscus. 3. Intact anterior and posterior cruciate ligaments. 4. Severe medial compartment osteoarthritis. Small knee joint effusion without prominent synovitis or intra-articular body. 5. Edema-like signal in the medial tibial plateau and medial femoral condyle, most likely reflecting degenerative related marrow edema, stress related marrow changes, or bone contusions. No acute fracture. No pathognomonic signal changes of osteonecrosis. 6. Small Ward's cyst. Dictated by: Dictated on workstation # [id number]
== END ==
LOC: RAD 11:38
PROVIDERS: ATTEND Nurse Practitioner Community Health
DX: S83.242A Other tear of medial meniscus, current injury, left knee, initial encounter (principal); S83.282A Other tear of lateral meniscus, current injury, left knee, initial encounter; M17.12 Unilateral primary osteoarthritis, left knee; M71.22 Synovial cyst of popliteal space [Baker], left knee
CPT/HCPCS: 73721

== ENCOUNTER → 2020-04-28 | Outpatient (CLI) | payer MEDICARE, MEDICAID ==
[~2020-04-28] MED LIST changes: +ALPR.25T PO; -ALPR0.254 PO; +AMLO-251 PO; -AMLO10TA7 PO; -PANT40TA3 PO; +PANT40TA52 PO
--- NOTE | 2020-04-28 08:58 | Diagnostic Imaging Report ---
INDICATION: COPD. Shortness of breath. COMPARISON: 02/02/2019. EXAMINATION: PA and lateral chest views. FINDINGS: Mild obstructive lung disease is present. There are no infiltrates. No masses. The heart is not enlarged. No pulmonary edema. No pneumothorax or pleural effusion. No bony abnormalities. IMPRESSION: Mild hyperaeration of the lungs bilaterally. No acute changes. Dictated by: Dictated on workstation # [id number]
== END ==
LOC: RAD 08:29
PROVIDERS: ATTEND Nurse Practitioner Family
DX: J44.9 Chronic obstructive pulmonary disease, unspecified (principal)
CPT/HCPCS: 71046

== ENCOUNTER → 2020-06-16 | Outpatient (CLI) | payer MEDICARE, MEDICAID ==
[~2020-06-16] MED LIST changes: -CLIN300C11 PO; +CLIN300C12 PO; -MONT10TA26 PO; +MONT10TA97 PO
--- NOTE | 2020-06-16 10:27 | Diagnostic Imaging Report ---
PROCEDURE: MRI lumbar spine. TECHNIQUE: Multiplanar, multisequence MRI of the lumbar spine was performed without contrast. INDICATION: Back pain. FINDINGS: Lumbar statures are normal. The alignment anatomic. The marrow signal intensity normal. The pedicles and pars were intact. Primary abnormality is at the L4-L5 level where there is fatty Modic type II changes across the articular endplates, disc desiccation, disc stature loss bulging with endplate osteophytes and mild thickening of ligamenta flava. Findings result in a mild degree of spinal canal stenosis and nccd-in-kfisxbim left foraminal narrowing with borderline mild right foraminal narrowing. In addition, the left lateral recess is at least mildly impinged below this disc space level. The discs at the remaining levels showed slight generalized annular bulge and slight desiccation but no focal herniation and no resultant stenosis. IMPRESSION: 1. Degenerative changes at L4-L5 with mild canal, left greater than right neural foraminal and left lateral recess impingement on the basis of osteophyte disc material, thickening of ligamenta flava and facet hypertrophy. 2. Normal alignment. No acute abnormality. No intrathecal abnormality. Dictated by: Dictated on workstation # [id number]
== END ==
LOC: RAD 08:40
PROVIDERS: ATTEND Physician Assistant
DX: M47.816 Spondylosis without myelopathy or radiculopathy, lumbar region (principal); M48.061 Spinal stenosis, lumbar region without neurogenic claudication; M89.38 Hypertrophy of bone, other site
CPT/HCPCS: 72148

== ENCOUNTER → 2020-06-16 | Outpatient (CLI) | payer MEDICARE, MEDICAID ==
[~2020-06-16] MED LIST changes: +CATHETER FLUSH 10 ML SYR IV PRN; +HOLD METFORMIN - RECEIVED CONTRAST 20 ML VIAL IV SCH; +IOHEXOL 350 MG/ML 100 ML (OMNIPAQUE 350) VIAL IV ONE; +NS 100 ML (IVPB) BAG IV ONE
[2020-06-16 09:36] LABS: CREATININE SERUM 0.95 MG/DL (0.60-1.30)
--- NOTE | 2020-06-16 10:39 | Diagnostic Imaging Report ---
PROCEDURE: CT chest with contrast only. TECHNIQUE: Multiple contiguous axial images were obtained through the chest after administration of intravenous contrast. Auto Exposure Controls were utilized during the CT exam to meet ALARA standards for radiation dose reduction. INDICATION: Pleural nodularity interval negative PET/ Compared with CT chest 11/12/2019. Ovoid circumscribed juxtapleural nodule peripherally at the right middle lobe measures smaller than on prior at 9 mm this reduction is likely owing to slice localization but well-defined and does not show suspicious characteristics. The left upper lobe subpleural nodule at 6 mm also stable. Some subpleural scarring bilaterally otherwise unchanged. No new mass, no suspicious lesion and no thoracic lymphadenopathy. IMPRESSION: Stable or decreased benign appearing pulmonary nodules with no adverse development. No suspicious finding given the appearance in comparison with priors as well as the interval PET scan. One additional one-year follow-up recommended and if continued stability and/or reduction should be demonstrated at that time no further workup would likely be needed. No adverse development or acute appearing abnormalities. Dictated by: Dictated on workstation # [id number]
== END ==
LOC: RAD 08:38
PROVIDERS: ATTEND Nurse Practitioner Family
DX: R91.8 Other nonspecific abnormal finding of lung field (principal)
CPT/HCPCS: 36415; 71260; 82565; 84520

== ENCOUNTER → 2021-07-26 | Outpatient (CLI) | payer MEDICARE, MEDICAID ==
[~2021-07-26] MED LIST changes: -CATHETER FLUSH 10 ML SYR IV PRN; +CLIN-144 PO; -CLIN300C12 PO; +CYCL10TA25 PO; -CYCL10TA9 PO; +ESCI20TA39 PO; -ESCI20TA45 PO; -FLUO20CA46 PO; +FLUO20CA48 PO; -HOLD METFORMIN - RECEIVED CONTRAST 20 ML VIAL IV SCH; -HYDR50TA3 PO; +HYDR50TA6 PO; -IOHEXOL 350 MG/ML 100 ML (OMNIPAQUE 350) VIAL IV ONE; +MONT-40 PO; -MONT10TA97 PO; -NS 100 ML (IVPB) BAG IV ONE; -OXYC-471 PO; +OXYC1TAB11 PO; +SERT-412 PO; -SERT25TA5 PO; +TIZA-169 PO; -TIZA2TAB7 PO
--- NOTE | 2021-07-26 13:32 | Diagnostic Imaging Report ---
EXAMINATION: Left knee radiographs, 4 views. COMPARISON: MRI left knee January 19, 2020. Knee radiographs November 21, 2011. HISTORY: 61-year-old female, left knee pain. FINDINGS: There is severe medial compartment joint space loss with anwi-ce-btxm articulation as well as severe patellofemoral compartment joint space loss with yorw-uy-eoxo articulation. There is no left knee joint effusion. There is no prominent notch osteophyte formation. The patella is normally positioned. There is a potential ossified intra-articular body posteriorly measuring 8 mm in size. There is substantial progression of at least the medial compartment osteoarthritis since November 21, 2011. There is note of severe medial compartment osteoarthritis on prior MRI on January 19, 2020. IMPRESSION: 1. Severe medial and patellofemoral compartment osteoarthritis of the left knee without left knee joint effusion. Dictated by: Dictated on workstation # [id number]
== END ==
LOC: ORTHO 10:49
PROVIDERS: ATTEND Orthopaedic Surgery
DX: M17.12 Unilateral primary osteoarthritis, left knee (principal); M25.462 Effusion, left knee
CPT/HCPCS: 73564; G0463; 99203

== ENCOUNTER → 2021-08-12 | Outpatient (CLI) | payer MEDICARE, MEDICAID ==
[2021-08-12 09:14] LABS: BASOPHILS % (AUTO) 0 % (0-10); EOSINOPHILS # (AUTO) 0.1 10^3/uL (0.0-0.3); EOSINOPHILS % (AUTO) 1 % (0-10); HEMATOCRIT 46 % (35-52); HEMOGLOBIN 14.9 g/dL (11.5-16.0); LYMPHOCYTES # (AUTO) 1.7 10^3/uL (1.0-4.0); LYMPHOCYTES % (AUTO) 23 % (12-44); MEAN CORPUSCULAR HEMOGLOBIN 33 pg (25-34); MEAN CORPUSCULAR HGB CONC 33 g/dL (32-36); MEAN CORPUSCULAR VOLUME 99 fL (80-99); MEAN PLATELET VOLUME 10.5 fL (9.0-12.2); MONOCYTES # (AUTO) 0.7 10^3/uL (0.0-1.0); MONOCYTES % (AUTO) 10 % (0-12); NEUTROPHILS # (AUTO) 4.6 10^3/uL (1.8-7.8); NEUTROPHILS % (AUTO) 64 % (42-75); PLATELET COUNT 152 10^3/uL (130-400); WHITE BLOOD COUNT 7.1 10^3/uL (4.3-11.0)
[2021-08-12 09:27] LABS: POTASSIUM 3.8 MMOL/L (3.6-5.0)
[2021-08-12 09:28] LABS: CALCIUM 9.5 MG/DL (8.5-10.1)
[2021-08-12 09:33] LABS: CREATININE SERUM 0.81 MG/DL (0.60-1.30)
== END ==
LOC: LAB 08:32
PROVIDERS: ATTEND Orthopaedic Surgery
DX: Z01.89 Encounter for other specified special examinations (principal); M17.12 Unilateral primary osteoarthritis, left knee
CPT/HCPCS: 36415; 80048; 85025; 85730

== ENCOUNTER → 2021-08-16 | Outpatient (CLI) | payer MEDICARE, MEDICAID ==
[2021-08-16 10:37] LABS: BILIRUBIN,URINE NEGATIVE (NEGATIVE); CLARITY,URINE SL CLOUDY; COLOR,URINE YELLOW; GLUCOSE, URINE (UA) NEGATIVE (NEGATIVE); KETONES,URINE NEGATIVE (NEGATIVE); LEUKOCYTE ESTERASE ,URINE NEGATIVE (NEGATIVE); NITRITE,URINE NEGATIVE (NEGATIVE); PH,URINE 6.5 (5-9); PROTEIN,URINE NEGATIVE (NEGATIVE)
[2021-08-16 10:43] LABS: BACTERIA,URINE NEGATIVE /HPF; RBC,URINE 0-2 /HPF; WBC,URINE RARE /HPF
--- NOTE | 2021-08-16 14:20 | Diagnostic Imaging Report ---
INDICATION: Preop for knee surgery. TIME OF EXAM: 10:33 AM Correlation is made with prior chest from 04/28/2020. FINDINGS: The heart size is normal. The pulmonary vascularity is unremarkable. The lungs are clear. No infiltrate, effusion or pneumothorax is detected. IMPRESSION: No acute cardiopulmonary process is detected. Dictated by: Dictated on workstation # [id number]
== END ==
LOC: CARD 10:30
PROVIDERS: ATTEND Orthopaedic Surgery
DX: Z01.89 Encounter for other specified special examinations (principal); Z01.810 Encounter for preprocedural cardiovascular examination; M17.12 Unilateral primary osteoarthritis, left knee
CPT/HCPCS: 71046; 81000; 93005

== ENCOUNTER 2021-09-05 05:30 | Outpatient (CLI) | payer MEDICARE, MEDICAID ==
[~2021-09-05] VITALS: Ht 160 cm; Wt 119.0 kg
[2021-09-06] MEDS ORDERED: CELE50CA PO (09:12)
== END 2021-09-06 09:27 ==
LOC: PREOP 05:30
PROVIDERS: ATTEND Orthopaedic Surgery
DX: Z01.818 Encounter for other preprocedural examination (principal)

== ENCOUNTER 2021-09-12 06:08 | Observation (INO) | payer MEDICARE, MEDICAID ==
[~2021-09-12] VITALS: Ht 160 cm; Wt 119.0 kg
[2021-09-12] VITALS (9 sets, daily range): BP systolic 114–162; BP diastolic 43–78
[~2021-09-12 06:08] MED LIST changes: +CELE50CA PO
[2021-09-12] MEDS ORDERED: ceFAZolin 2 GM IV Premixed 50 ML IV ONE (06:30)
[2021-09-12] MEDS ORDERED: TRANEXAMIC ACID INJECTION 3,000 MG, SODIUM CHLORIDE 0.9% IRRIGATIO 150 ML IV ONE ×2 (06:45)
[2021-09-12] MEDS: LACTATED RINGERS 1,000 ML IV PRN ×3 (06:52→08:50)
--- NOTE | 2021-09-12 07:18 | History & Physical Orthopedic ---
History and Physical Subjective Date of Exam 09/12/21 Chief Complaint Left Knee Pain HPI/Events since last exam has been having ongoing difficulty with left knee pain for the past year, has severe pain at times, has been treating with ice, NSAIDs, and narcotics, has refused prior attempts at injections Medical, Surgical History HTN, COPD, Sleep Apnea, Hysterectomy, R TKA, Cholecystectomy Social History 1/2 ppd smoker Family History Noncontributory Review of Systems - Allergies: Coded Allergies: codeine (Verified Allergy, Severe, ANAPHYLAXIS BUT PT CAN TAKE MORPHINE, 08/19/19) sulfamethoxazole (Verified Allergy, Severe, 08/19/19) "STROKE-LIKE" SYMPTOMS trimethoprim (Verified Allergy, Severe, 08/19/19) "STROKE-LIKE" SYMPTOMS venom-honey bee (Verified Allergy, Unknown, 08/19/19) Home Meds Reported Medications Celecoxib (Celebrex) 50 Mg Capsule, 50 MG PO BID, CAP 09/06/21 Trazodone HCl (Trazodone HCl) 100 Mg Tablet, 100 MG PO HS, TAB 01/13/20 Pantoprazole Sodium (Pantoprazole Sodium) 40 Mg Tablet.dr, 40 MG PO DAILY, TAB 01/13/20 Cetirizine HCl (Cetirizine HCl) 10 Mg Tablet, 10 MG PO DAILY, TAB 01/13/20 Tizanidine HCl (Tizanidine HCl) 4 Mg Capsule, 4 MG PO TID PRN for MUSCLE SPASMS, CAP 01/13/20 Albuterol Sulfate (Albuterol Sulfate) 2.5 Mg/3 Ml Vial.neb, 2.5 MG NEB BID PRN for SHORTNESS OF BREATH, EA 01/13/19 Albuterol Sulfate (Albuterol Sulfate) 2.5 Mg/3 Ml Vial.neb, 2.5 MG NEB BID, EA 01/13/19 Tiotropium [place] (Spiriva) 1 Inh Aerp, 1 CAP INH DAILY, INHALER 01/13/19 Albuterol Sulfate (PROAIR HFA) 1 Puff Puff, 2 PUFF IH Q6H PRN for SHORTNESS OF BREATH, INHALER 1 PUFF = 90 MCG 01/13/19 Gabapentin (Gabapentin) 400 Mg Capsule, 400 MG PO TID, CAP 01/13/19 Hydroxyzine HCl (Hydroxyzine HCl) 25 Mg Tablet, 25 MG PO TID PRN for ANXIETY, TAB 01/13/19 Buspirone HCl (Buspirone HCl) 15 Mg Tablet, 15 MG PO TID, TAB 01/13/19 Mirabegron (Myrbetriq) 50 Mg Tab.er.24h, 50 MG PO HS, TAB 01/13/19 Escitalopram Oxalate (Escitalopram Oxalate) 20 Mg Tablet, 20 MG PO DAILY, TAB 01/13/19 Topiramate (Topiramate) 100 Mg Tablet, 100 MG PO DAILY, TAB 01/13/19 Tramadol HCl (Tramadol HCl) 50 Mg Tablet, 50-100 MG PO TID, TAB 01/13/19 Meloxicam (Meloxicam) 7.5 Mg Tablet, 7.5 MG PO DAILY, TAB 03/26/18 Budesonide/Formoterol Fumarate (Symbicort 160-4.5 Mcg Inhaler) 10.2 Gm Hfa.aer.ad, 2 PUFF INH BID, INHALER 04/12/16 Montelukast Sodium (Montelukast Sodium) 10 Mg Tablet, 10 MG PO HS, TAB 04/12/16 Ropinirole HCl (Ropinirole HCl) 0.5 Mg Tablet, 0.5 MG PO HS, TAB 04/12/16 Simvastatin (Simvastatin) 40 Mg Tablet, 40 MG PO HS, TAB 04/12/16 Discontinued Reported Medications Docusate Sodium (Docusate Sodium) 100 Mg Capsule, 100 MG PO DAILY, CAP 01/13/20 Famotidine (Heartburn Relief) 20 Mg Tablet, 20 MG PO DAILY, TAB 01/13/20 Objective Exam Gen: Alert and Oriented CV: S1 and S2 present Resp: Symmetric chest expansion, no labored breathing GI: Soft, NT L Knee: crepitation with motion noted, 5-125 ROM, 5/5 strength, sensation grossly intact to light touch, distal pulses palpable Assessment and Plan Assessment Left Knee Primary Osteoarthritis Problem List Left Knee Primary Osteoarthritis Plan Reviewed exam and prior radiographs. Has continued daily symptoms that limit her activities. Has successfully underwent R TKA. Now has elected to proceed with L TKA. Nature of the procedure and the postoperative course were discussed. Risks and benefits were discussed. Will plan on proceeding with L TKA this AM. Final Diagonsis Left Knee Primary Osteoarthritis Level of the visit: Level 3 (preop global) BRIANNA SANTOS MD Sep 12, 2021 07:18
[2021-09-12] MEDS ORDERED: proPOfol 200 MG/20 ML (DIPRIVAN) VIAL IV ONE (07:51)
[2021-09-12] MEDS ORDERED: LIDOCAINE PF 2% 5 ML (XYLOCAINE) VIAL ONE (07:51)
[2021-09-12] MEDS ORDERED: MIDAZOLAM 2 MG/2 ML (VERSED) VIAL ONE (07:51)
[2021-09-12] MEDS ORDERED: NEOSTIGMINE 3 MG/3 ML VIAL ONE (07:51)
[2021-09-12] MEDS ORDERED: ONDANSETRON 4 MG/2 ML (SDV) Z0FRAN ONE (07:51)
[2021-09-12] MEDS ORDERED: ROCURONIUM 10 MG/ML 5 ML SYRINGE IV ONE (07:51)
[2021-09-12] MEDS ORDERED: GLYCOPYRROLATE 0.2 MG/ML (ROBINUL) 2 ML VIAL ONE (07:51)
[2021-09-12] MEDS ORDERED: fentaNYL INJ 100 MCG/2 ML AMP ONE (07:51)
[2021-09-12] MEDS ORDERED: HYDROmorphone 2 MG/ML VIAL (DILAUDID) ONE (08:58)
[2021-09-12] MEDS ORDERED: BUPIVACAINE 0.5% 30 ML (SENSORCAINE) VIAL ONE (09:19)
[2021-09-12] MEDS ORDERED: SEVOFLURANE (ULTANE) 15 ML INHAL SOLN ONE ×3 (09:39→10:38)
--- NOTE | 2021-09-12 09:55 | Operative Report - Ortho ---
Operative Report Surgeon (s)/Fourth Mate (s) Surgeon BRIANNA SANTOS MD Fourth Mate n/a Pre-Operative Diagnosis LEFT KNEE PRIMARY OSTEOARTHRITIS Post-Operative Diagnosis same Operative Report Date of Procedure: Sep 12, 2021 Name of Procedure Performed: Left Total Knee Arthroplasty Description & Findings After obtaining informed consent and marking the patient in the preoperative holding area, the patient did receive IV antibiotics. Patient was taken to the operating room and anesthesia was induced. Surgical timeout was taken. The left lower extremity was prepped and draped in the usual sterile fashion. Incision was made and carried down to fascia. Arthrotomy was performed on the medial side of the patella. Patella was retracted laterally and knee was flexed. Found to have circumferential osteophtye around the distal femur as well as exposed bone in the medial compartment. Hole was made in the distal femur for the intramedullary distal femoral cutting guide. Resection was made then the extramedullary tibial guide was put into place and aligned with the tibial crest. It was set to take 2 mm off of the affected medial side. Drop glenroy was used to confirm alignment. Resection was made and was parallel to the joint line. Tibial bone block was removed. Attention was turned back to the femur and it was sized as a 4. 4-in-1 block for a size [address]. Anterior cut was made and there was no notch. Posterior cut was made followed by the chamfers. Box cut was performed. Lug holes were drilled. Lamina product manager e commerce was put into place and the menisci and posterior osteophytes were removed. The knee was trialed with a size 4 femur and a size 4 tibia with a 9 mm poly trial. It was found to come out to full extension and flexed beyond 120 degrees. It demonstrated some opening laterally with stress. Knee was brought out into extension and the patella was measured at less than 20 mm of thickness. Osteophytes were removed from around the perimeter of the patella. Trial implants were removed. Tibial tray was pinned and punched. The cut bone surfaces were lavaged with pulsatile normal saline. Implants were opened and assembled on the back table. Cement was mixed. Cement was applied to the cut bone surface as well as the implant surface. A size 4 tibial component was impacted into placed and excess cement was removed using a [place]. A size 4 femoral component was impacted into place and excess cement was removed using a [place]. Tibial tray was lavaged with saline. An 11 mm thick polyethylene trial was placed. Knee was brought into extension. The knee was irrigated with normal saline. Irrigation was removed and tranexamic acid was placed. A betadine soak was performed and then further irrigation. Once the cement had set, the knee was once again trialed; found to come to full extension, flexed beyond 120 degrees, and was stable to varus and valgus stress. The polyethylene trial was then exchanged for an 11 mm polyethylene insert. Further tranexamic acid was applied for hemostasis. Tourniquet was dropped and electrocautery was used for further hemostasis. Fascial layer was closed with #1 Ethibond. The subcutaneous layer was closed with 2-0 Vicryl. The skin was closed with ruperto. Wound was dressed with xeroform, 4x4s, ABD, webril, and MELO wrap. Patient tolerated the procedure well and was stable to the recovery room. Anesthesia Type General plus regional Estimated Blood Loss 150 mL Specimen(s) collected/removed None BRIANNA SANTOS MD Sep 12, 2021 09:55
[2021-09-12] MEDS ORDERED: BISACODYL 5 MG (DULCOLAX) TABLET PO PRN (10:00)
[2021-09-12] MEDS ORDERED: ACETAMINOPHEN 500 MG TAB (TYLENOL) PO PRN (10:00)
[2021-09-12] MEDS ORDERED: ONDANSETRON 4 MG/2 ML (SDV) Z0FRAN IV PRN (10:00)
[2021-09-12] MEDS ORDERED: MILK OF MAGNESIA 400 MG/5 ML 30 ML UDC PO PRN (10:00)
[2021-09-12] MEDS ORDERED: NS IV 1000 ML 1,000 ML IV SCH (10:00)
[2021-09-12] MEDS ORDERED: RT-ALBUTEROL SULF 2.5 MG/3 ML PRE-MIX VIAL IH PRN (10:15)
[2021-09-12] MEDS ORDERED: morphine INJ 10 MG/ML 1ML (SYR OR VIAL) IVP ONE (10:15)
[2021-09-12] MEDS ORDERED: ONDANSETRON 4 MG/2 ML (SDV) Z0FRAN IVP PRN (10:15)
[2021-09-12] MEDS ORDERED: HYDROmorphone 2 MG/ML VIAL (DILAUDID) IV ONE (10:15)
--- NOTE | 2021-09-12 10:21 | Diagnostic Imaging Report ---
Indication: Postop left knee. Time of Exam: 10:00 a.m. Two views of the left knee demonstrate postop changes of total knee arthroplasty. Prosthetic elements are in good position. No fracture or loosening is seen. There are overlying skin ruperto. IMPRESSION: Satisfactory postop appearance to the left knee. Dictated by: Dictated on workstation # [id number]
[2021-09-12] MEDS: busPIRone 15 MG (BUSPAR) TABLET PO SCH ×2 (12:01→21:00)
[2021-09-12] MEDS: morphine INJ 4 MG/ML 1 ML (VIAL/SYRINGE) IVP PRN ×2 (12:01→17:10)
[2021-09-12] MEDS: GABAPENTIN 400 MG (NEURONTIN) CAP PO SCH ×2 (12:01→21:00)
--- NOTE | 2021-09-12 13:54 | Physical Therapy Evaluation ---
PT Evaluation-General Medical Diagnosis Admission Date Medical Diagnosis: L TKA Onset Date: Sep 12, 2021 Therapy Diagnosis Therapy Diagnosis: Impaired mobility, strength, ROM, ambulation, transfers Height/Weight Height (Feet): 5 Height (Inches): 3.00 Weight (Pounds): 317 Weight (Ounces): 8.0 Precautions Precautions/Isolations: Standard Precautions Weight Bear Status Full Weight Bearing Weight Bearing/Tolerated Referral Physician: Rodolfo Reason for Referral: Evaluation/Treatment Medical History Additional Medical History Medical, Surgical History HTN, COPD, Sleep Apnea, Hysterectomy, R TKA, Cholecystectomy Social History Home: Multilevel Current Living Status: Alone Entry Into Home: Level Entry PT Steps Into Home: 0 Patient uses elevator inside home. Patient lives alone but has full-time professional help Prior Prior Level of Function SCALE: Activities may be completed with or without assistive devices. 5-Zuqjcdnruz-sbeyvxe completes the activity by him/herself with no assistance from a helper. 5-Set-up or Clean-up Assistance-helper sets up or cleans up; patient completes activity. [place] assists only prior to or following the activity. 4-Supervision or Touching Assistance-helper provides verbal cues and/or touching/steadying and/or contact guard assistance as patient completes activity. Assistance may be provided throughout the activity or intermittently. 3-Partial/Moderate Assistance-helper does LESS THAN HALF the effort. Nocatee lifts, holds or supports trunk or limbs, but provides less than half the effort. 2-Substantial/Maximal Assistance-helper does MORE THAN HALF the effort. [place]e lifts or holds trunk or limbs and provides more than half the effort. 2-Jnihboroe-tccfdo does ALL the effort. Patient does none of the effort to complete the activity. Or, the assistance of 2 or more helpers is required for the patient to complete the activity. If activity was not attempted, code reason: 7-Patient Refused. 9-Not Applicable-not attempted and the patient did not perform the activity before the current illness, exacerbation or injury. 10-Not Attempted due to Environmental Limitations-(lack of equipment, weather restraints, etc.). 88-Not Attempted due to Medical Conditions or Safety Concerns. Bed Mobility: 6 Transfers (B,C,W/C): 6 Gait: 6 Prior Devices Use: Walker Prior Device Use: Four wheel walker PT Evaluation-Current Subjective Patient was in bed eating upon arrival. Patient consented to treatment. Pain Numeric Pain Scale: 10-Worst Possible Pain Location: Left Location Body Site: Knee Pt/Family Goals To be independent at home. Objective Patient Orientation: Person, Place, Time, Situation ROM/Strength ROM Lower Extremities LLE: knee flexion 30 degrees, extension +2 degrees RLE: Grossly WFL Strength Lower Extremities LLE: Grossly impaired due to pain. RLE: Grossly WFL Integumentary/Posture Bowel Incontinence: No Bladder Incontinence: Wilson Cath Sensory Vision: Functional Hearing: Functional Sensation Right Lower Extremit: Intact Sensation Left Lower Extremity: Impaired Sensation Lower Extremities left leg still a little numb Transfers Roll Left to Right (QC): 3 Sit to Lying (QC): 3 Lying to Sitting/Side of Bed(Q: 2 Sit to Stand (QC): 3 Chair/Buq-wd-Ojbbc Xfer(QC): 88 Toilet Transfer (QC): 88 Car Transfer (QC): 88 Gait Does the Patient Walk?: Yes Mode of Locomotion: Walk Anticipated Mode of Locomotion: Walk Gait Assistive Device: FWW Balance Sitting Static: Normal Sitting Dynamic: Normal Standing Static: Good Standing Dynamic: Good Treatment LE strengthening, ROM Side stepping 3ft LLE total knee protocol x10 (AP, QS, HS, SAQ, SLR) Assessment/Needs Patient was unable to tolerate any weight on the LLE due to pain. Patient has significantly limited ROM and strength in LLE. Patient was able to side step 3ft with FWW and CGA. Patient was left in bed with ice, tray, call light, and all needs met. CPM not donned due to patient having very short legs and the CPM placement would be very uncomfortable. Rehab Potential: Fair PT Administrative Hearing Officer Goals Prison Goals PT Administrative Hearing Officer Goals Time Frame: Sep 19, 2021 Roll Left & Right (QC): 6 Sit to Lying (QC): 6 Lying-Sitting on Side/Bed(QC): 6 Sit to Stand (QC): 4 Chair/Dea-gk-Jvvwf Xfer(QC): 4 Does the Patient Walk: No and Walking Goal IS indicated Walk 10 feet (QC): 4 Walk 50ft with 2 Turns (QC): 4 Walk 150 ft (QC): 4 PT Plan Problem List Problem List: Activity Tolerance, Functional Strength, Safety, Balance, Gait, Transfer, Bed Mobility, ROM Treatment/Plan Treatment Plan: Continue Plan of Care Treatment Plan: Bed Mobility, Education, Functional Activity Mic, Functional Strength, Gait, Safety, Therapeutic Exercise, Transfers Treatment Duration: Sep 19, 2021 Frequency: 11 times per week Estimated Hrs Per Day: .25 hour per day Patient and/or Family Agrees t: Yes Safety Risks/Education Patient Education: Transfer Techniques, Correct Positioning, Safety Issues Teaching Recipient: Patient Teaching Methods: Discussion Response to Teaching: Verbalize Understanding Discharge Recommendations Plan Patient will work on LE ambulation, strengthening, ROM, and functional activities including transfers. Time/GCodes Time In: 124 Time Out: 144 Total Billed Treatment Time: 20 Total Billed Treatment 1 Visit EVL 20min WILLY FISH PT Sep 12, 2021 13:54
[2021-09-12] MEDS ORDERED: hydrOXYzine (VISTARIL/ATARAX) 25 MG capsule/tablet PO PRN (14:00)
[2021-09-12] MEDS: MONTELUKAST 10 MG (SINGULAIR) TAB PO SCH (21:00)
[2021-09-12] MEDS: traZODone 100 MG (DESYREL) TAB PO SCH (21:00)
[2021-09-12] MEDS: rOPINIRole 0.25 MG (REQUIP) TAB PO SCH (21:00)
[2021-09-12] MEDS: SIMvastatin 40 MG (ZOCOR) TAB PO SCH (21:00)
[2021-09-12] MEDS: DOCUSATE SODIUM 100 MG (COLACE) CAP PO SCH (21:00)
[2021-09-12] MEDS: MIRABEGRON 25 MG TAB (MYRBETRIQ) PO SCH (21:00)
[2021-09-12] MEDS: ceFAZolin INJECTION 2,000 MG in NS (IVPB) 50 ML IV SCH (21:01)
[2021-09-12] MEDS: CELECOXIB 100 MG (CeleBREX) CAP PO SCH (21:01)
[2021-09-12] MEDS: RT-ALBUTEROL SULF 2.5 MG/3 ML PRE-MIX VIAL IH SCH (21:17)
[2021-09-12] MEDS: RT--FLUTICASONE/SALMETEROL 113-14 (AIRDUO RespiCLICK) IH SCH (21:17)
[2021-09-13] VITALS (7 sets, daily range): BP systolic 135–171; BP diastolic 66–81
[2021-09-13] MEDS: morphine INJ 4 MG/ML 1 ML (VIAL/SYRINGE) IVP PRN ×5 (03:31→20:53)
[2021-09-13] MEDS: MULTIVIT W/MINERALS TAB (THERAGRAN M) PO SCH (05:24)
[2021-09-13] MEDS: ceFAZolin INJECTION 2,000 MG in NS (IVPB) 50 ML IV SCH (05:26)
[2021-09-13 06:46] LABS: HEMOGLOBIN 13.6 g/dL (11.5-16.0)
--- NOTE | 2021-09-13 08:19 | Progress Note - Ortho ---
Progress Note Subjective Date of Exam 09/13/21 Chief Complaint POD #1 L TKA HPI/Events since last exam dressing replaced yesterday secondary to bleeding, pain controlled, patient without concerns Review of Systems - Allergies: Coded Allergies: codeine (Verified Allergy, Severe, ANAPHYLAXIS BUT PT CAN TAKE MORPHINE, 08/19/19) sulfamethoxazole (Verified Allergy, Severe, 08/19/19) "STROKE-LIKE" SYMPTOMS trimethoprim (Verified Allergy, Severe, 08/19/19) "STROKE-LIKE" SYMPTOMS venom-honey bee (Verified Allergy, Unknown, 08/19/19) Home Meds Reported Medications Celecoxib (Celebrex) 50 Mg Capsule, 50 MG PO BID, CAP 09/06/21 Trazodone HCl (Trazodone HCl) 100 Mg Tablet, 100 MG PO HS, TAB 01/13/20 Pantoprazole Sodium (Pantoprazole Sodium) 40 Mg Tablet.dr, 40 MG PO DAILY, TAB 01/13/20 Cetirizine HCl (Cetirizine HCl) 10 Mg Tablet, 10 MG PO DAILY, TAB 01/13/20 Tizanidine HCl (Tizanidine HCl) 4 Mg Capsule, 4 MG PO TID PRN for MUSCLE SPASMS, CAP 01/13/20 Albuterol Sulfate (Albuterol Sulfate) 2.5 Mg/3 Ml Vial.neb, 2.5 MG NEB BID PRN for SHORTNESS OF BREATH, EA 01/13/19 Albuterol Sulfate (Albuterol Sulfate) 2.5 Mg/3 Ml Vial.neb, 2.5 MG NEB BID, EA 01/13/19 Tiotropium [place] (Spiriva) 1 Inh Aerp, 1 CAP INH DAILY, INHALER 01/13/19 Albuterol Sulfate (PROAIR HFA) 1 Puff Puff, 2 PUFF IH Q6H PRN for SHORTNESS OF BREATH, INHALER 1 PUFF = 90 MCG 01/13/19 Gabapentin (Gabapentin) 400 Mg Capsule, 400 MG PO TID, CAP 01/13/19 Hydroxyzine HCl (Hydroxyzine HCl) 25 Mg Tablet, 25 MG PO TID PRN for ANXIETY, TAB 01/13/19 Buspirone HCl (Buspirone HCl) 15 Mg Tablet, 15 MG PO TID, TAB 01/13/19 Mirabegron (Myrbetriq) 50 Mg Tab.er.24h, 50 MG PO HS, TAB 01/13/19 Escitalopram Oxalate (Escitalopram Oxalate) 20 Mg Tablet, 20 MG PO DAILY, TAB 01/13/19 Topiramate (Topiramate) 100 Mg Tablet, 100 MG PO DAILY, TAB 01/13/19 Tramadol HCl (Tramadol HCl) 50 Mg Tablet, 50-100 MG PO TID, TAB 01/13/19 Meloxicam (Meloxicam) 7.5 Mg Tablet, 7.5 MG PO DAILY, TAB 03/26/18 Budesonide/Formoterol Fumarate (Symbicort 160-4.5 Mcg Inhaler) 10.2 Gm Hfa.aer.ad, 2 PUFF INH BID, INHALER 04/12/16 Montelukast Sodium (Montelukast Sodium) 10 Mg Tablet, 10 MG PO HS, TAB 04/12/16 Ropinirole HCl (Ropinirole HCl) 0.5 Mg Tablet, 0.5 MG PO HS, TAB 04/12/16 Simvastatin (Simvastatin) 40 Mg Tablet, 40 MG PO HS, TAB 04/12/16 Discontinued Reported Medications Docusate Sodium (Docusate Sodium) 100 Mg Capsule, 100 MG PO DAILY, CAP 01/13/20 Famotidine (Heartburn Relief) 20 Mg Tablet, 20 MG PO DAILY, TAB 01/13/20 Objective Exam L Knee: Dressing C/D/I, +DF of ankle, no s/s of DVT Vital Signs Vital Signs Date Time Temp Pulse Resp B/P (MAP) Pulse Ox O2 Delivery O2 Flow Rate FiO2 09/13/21 03:57 36.6 88 18 160/75 (103) 95 Nasal Cannula 6.00 09/13/21 00:13 37.7 81 18 144/67 (92) 96 Nasal Cannula 6.00 09/12/21 21:21 97 Nasal Cannula 6.00 09/12/21 21:18 97 Nasal Cannula 6.00 09/12/21 20:50 Nasal Cannula 6.00 09/12/21 19:50 37.3 79 19 134/78 (96) 97 Nasal Cannula 6.00 09/12/21 15:24 37.8 78 20 114/72 (86) 95 Nasal Cannula 6.00 09/12/21 10:45 16 130/55 (80) 95 OxyMask 6 09/12/21 10:45 OxyMask 6 09/12/21 10:40 37.1 12 131/57 (81) 94 OxyMask 6 09/12/21 10:34 OxyMask 6 09/12/21 10:30 13 135/58 (83) 95 OxyMask 6 09/12/21 10:25 OxyMask 6 09/12/21 10:20 10 142/43 (76) 93 OxyMask 6 09/12/21 10:10 OxyMask 8 09/12/21 10:10 11 162/60 (94) 100 OxyMask 8 09/12/21 10:00 9 145/57 (86) 98 OxyMask 8 09/12/21 09:55 OxyMask 8 09/12/21 09:55 37.6 16 145/62 (89) 99 OxyMask 8 I & O 09/13/21 07:00 Intake Total 2610 ml Output Total 2555 ml Balance 55 ml Lab Results Laboratory Tests 09/13/21 06:40: Hemoglobin 13.6, Hematocrit 41 Microbiology 09/12/21 MRSA Screen - Final, Complete MRSA not isolated Imaging 2 postop views of the left knee were reviewed and demonstrated an obliqued AP but components appear to be adequate alignment, no postop complication Assessment and Plan Assessment Left Knee Primary Osteoarthitis s/p L TKA Problem List Left Knee Primary Osteoarthitis s/p L TKA Plan PT/OT DVT prophylaxis With good progress, will consider home with home health tomorrow. If difficul ty, consider inpatient rehab. Final Diagonsis Left Knee Primary Osteoarthitis s/p L TKA Level of the visit: Level 3 (postop global) BRIANNA SANTOS MD Sep 13, 2021 08:18
[2021-09-13] MEDS: RT--FLUTICASONE/SALMETEROL 113-14 (AIRDUO RespiCLICK) IH SCH ×2 (08:24→20:15)
[2021-09-13] MEDS: RT-ALBUTEROL SULF 2.5 MG/3 ML PRE-MIX VIAL IH SCH ×2 (08:24→20:15)
--- NOTE | 2021-09-13 09:05 | Physical Therapy Daily Note ---
PT Daily Note-Current Subjective Patient agrees to PT. Pain Numeric Pain Scale: 8 Location: Left Location Body Site: Knee Pain Description: Acute Comment: pain medication issued Mental Status Patient Orientation: Normal For Age Attachments: Oxygen (6L), Wilson Catheter, Polar Pack Transfers SCALE: Activities may be completed with or without assistive devices. 0-Myxcfcobaj-xnqtrhr completes the activity by him/herself with no assistance from a helper. 5-Set-up or Clean-up Assistance-helper sets up or cleans up; patient completes activity. [place] assists only prior to or following the activity. 4-Supervision or Touching Assistance-helper provides verbal cues and/or touching/steadying and/or contact guard assistance as patient completes acti vity. Assistance may be provided throughout the activity or intermittently. 3-Partial/Moderate Assistance-helper does LESS THAN HALF the effort. [place] lifts, holds or supports trunk or limbs, but provides less than half the effort. 2-Substantial/Maximal Assistance-helper does MORE THAN HALF the effort. [place] lifts or holds trunk or limbs and provides more than half the effort. 0-Gfhzqfcuh-ddsrog does ALL the effort. Patient does none of the effort to complete the activity. Or, the assistance of 2 or more helpers is required for the patient to complete the activity. If activity was not attempted, code reason: 7-Patient Refused. 9-Not Applicable-not attempted and the patient did not perform the activity before the current illness, exacerbation or injury. 10-Not Attempted due to Environmental Limitations-(lack of equipment, weather restraints, etc.). 88-Not Attempted due to Medical Conditions or Safety Concerns. Lying to Sitting/Side of Bed(Q: 3 Sit to Stand (QC): 4 Chair/Hbt-bd-Yyyog Xfer(QC): 4 Weight Bearing Full Weight Bearing Weight Bearing/Tolerated Gait Training Distance: 20' Walk 10 feet (QC): 4 Gait Assistive Device: FWW antalgic, functional gait sequence Exercises Supine Ex: Ankle pumps, Quad Set, Heel Slides, Straight leg raise Supine Reps: 12 Seated Therapy Exercises: Long arc quads Seated Reps: 12 Assessment Patient improving with treatment plan. She does limit ROM left knee with flexion due to pain. Education on importance of performing AROM to increase ROM left knee. Patient voices understanding. Patient states she wants to go home tomorrow and she has 01/01 care that assists her with all ADL's and mobility per her report. PT Penitentiary Goals An/Ssn 2 4 Operator Goals PT Penitentiary Goals Time Frame: Sep 19, 2021 Roll Left & Right (QC): 6 Sit to Lying (QC): 6 Lying-Sitting on Side/Bed(QC): 6 Sit to Stand (QC): 4 Chair/Bnv-sx-Yjmfq Xfer(QC): 4 Does the Patient Walk: No and Walking Goal IS indicated Walk 10 feet (QC): 4 Walk 50ft with 2 Turns (QC): 4 Walk 150 ft (QC): 4 PT Plan Treatment/Plan Treatment Plan: Continue Plan of Care Treatment Plan: Bed Mobility, Education, Functional Activity Mic, Functional Strength, Gait, Safety, Therapeutic Exercise, Transfers Treatment Duration: Sep 19, 2021 Frequency: 11 times per week Estimated Hrs Per Day: .25 hour per day Patient and/or Family Agrees t: Yes Time/GCodes Time In: 820 Time Out: 844 Total Billed Treatment Time: 24 Total Billed Treatment 1 visit EX 13 min GT 11 min MARGOT KEN PT Sep 13, 2021 09:05
[2021-09-13] MEDS: toPIRamate 100 MG (TOPAMAX) TAB PO SCH (09:22)
[2021-09-13] MEDS: GABAPENTIN 400 MG (NEURONTIN) CAP PO SCH ×3 (09:22→20:53)
[2021-09-13] MEDS: CELECOXIB 100 MG (CeleBREX) CAP PO SCH ×2 (09:22→20:53)
[2021-09-13] MEDS: DOCUSATE SODIUM 100 MG (COLACE) CAP PO SCH ×2 (09:23→20:53)
[2021-09-13] MEDS: LORATADINE (CLARITIN) 10 MG TAB PO SCH (09:23)
[2021-09-13] MEDS: APIXABAN 2.5 MG (ELIQUIS) TABLET PO SCH ×2 (09:23→20:53)
[2021-09-13] MEDS: PANTOPRAZOLE 40 MG (PROTONIX) TAB PO SCH (09:23)
[2021-09-13] MEDS: busPIRone 15 MG (BUSPAR) TABLET PO SCH ×3 (09:23→20:53)
--- NOTE | 2021-09-13 11:45 | Anesthesia-General Post-Op ---
General Patient Condition Mental Status/LOC: Same as Preop Cardiovascular: Satisfactory Nausea/Vomiting: Absent Respiratory: Satisfactory Pain: Controlled Complications: Absent Post Op Complications Complications None Follow Up Care/Instructions Patient Instructions None needed. Anesthesia/Patient Condition Patient Condition Patient is doing well, no complaints, stable vital signs, no apparent adverse anesthesia problems. No complications reported per nursing. ISAAK GEIGER CRNA Sep 13, 2021 11:45
--- NOTE | 2021-09-13 12:05 | Occupational Therapy Eval ---
OT Evaluation-General/PLF Medical Diagnosis Admission Date Medical Diagnosis: L TKA Onset Date: Sep 12, 2021 Therapy Diagnosis Therapy Diagnosis: n/a Height/Weight Height (Feet): 5 Height (Inches): 3.00 Weight (Pounds): 317 Weight (Ounces): 8.0 Precautions Precautions/Isolations: Standard Precautions Referral Physician: Rodolfo Referral Reason: Evaluation/Treatment Medical History Additional Medical History HTN, COPD, hysterectomy, R TKA, smoker Current History s/p L TKA 09/12/21 Social History Home: Apartment (5th floor) Current Living Status: Alone Entry Into Home: Level Entry Steps Into Home: 0 ADL-Prior Level of Function SCALE: Activities may be completed with or without assistive devices. 9-Mdhzzxbgpq-qkekdug completes the activity by him/herself with no assistance fr om a helper. 5-Set-up or Clean-up Assistance-helper sets up or cleans up; patient completes activity. [place] assists only prior to or following the activity. 4-Supervision or Touching Assistance-helper provides verbal cues and/or touching/steadying and/or contact guard assistance as patient completes activity. Assistance may be provided throughout the activity or intermittently. 3-Partial/Moderate Assistance-helper does LESS THAN HALF the effort. [place] lifts, holds or supports trunk or limbs, but provides less than half the effort. 2-Substantial/Maximal Assistance-helper does MORE THAN HALF the effort. [place] lifts or holds trunk or limbs and provides more than half the effort. 9-Pjteijsmw-ivgvme does ALL the effort. Patient does none of the effort to complete the activity. Or, the assistance of 2 or more helpers is required for the patient to complete the activity. If activity was not attempted, code reason: 7-Patient Refused. 9-Not Applicable-not attempted and the patient did not perform the activity before the current illness, exacerbation or injury. 10-Not Attempted due to Environmental Limitations-(lack of equipment, weather restraints, etc.). 88-Not Attempted due to Medical Conditions or Safety Concerns. ADL PLOF Comments Pt reports having assistance 01/01 at home with upsetter helper and boyfriend assistance. She is able to don shirt and feed herself. Requires assistance toileting, showering, LB dressing, footwear and IADLs. Self Care: Independent Functional Cognition: Independent DME/Equipment: Bath Chair, Tub/Shower OT Current Status Subjective Pt in recliner, agreeable to OT evaluation. Mental Status/Objective Patient Orientation: Person, Place, Situation Attachments: Oxygen Current Upper Extremity ROM WFL ADL-Treatment Eating (QC): 6 Oral Hygiene (QC): 5 (per clincial judgment.) Upper Body Dressing (QC): 5 (Per pt report.) Other Treatments Pt up in recliner, agreeable to OT evaluation. OT provided education on purpose and benefit of OT, she verbalized understanding. Pt provided information about PLOF and home set up. Pt indicates she has no concerns with her ability to complete ADLs at home, she has assistance with all ADLs prior. Pt able to don shirt and feed herself, otherwise has assistance at home for other ADLs. Pt currently reports she is at baseline with ADLs, and doesn't want further OT services at this time. OT informed pt if she has a decline in ADL function, or has questions to let her nurse know and new orders can be sent. Post tx, pt up in recliner, call light in reach and all needs met. Education OT Patient Education: Correct positioning, Energy conservation, Exercise program, Modified ADL techniques, Progress toward Goal/Update tx plan, Purpose of tx/functional activities, Rehab process Teaching Recipient: Patient Teaching Methods: Discussion Response to Teaching: Verbalize Understanding OT Pluck Trimmer Goals Pluck Trimmer Goals 1=Demonstrate adherence to instructed precautions during ADL tasks. 2=Patient will verbalize/demonstrate understanding of assistive devices/modifications for ADL. 3=Patient will improve strength/tolerance for activity to enable patient to perform ADL's. OT Education/Plan Problem List/Assessment Assessment: No Skilled OT Needs ID'd No skilled OT services indicated at this time as pt is at OF with ADLs. d/c from OT Discharge Recommendations Plan/Recommendations: Discharge/Goals Met Treatment Plan/Plan of Care Patient would benefit from OT for education, treatment and training to promote independence in ADL's, mobility, safety and/or upper extremity function for ADL's. Plan of Care: ADL Retraining, Functional Mobility, UE Funct Exercise/Act Treatment Duration: Sep 13, 2021 Frequency: 1 time per week (eval only) Estimated Hrs Per Day: .25 hour per day Rehab Potential: Fair Time/GCodes Start Time: 11:40 Stop Time: 11:50 Total Time Billed (hr/min): 10 Billed Treatment Time 1. ARIANE BARNETT OT Sep 13, 2021 12:05
--- NOTE | 2021-09-13 14:05 | Physical Therapy Daily Note ---
PT Daily Note-Current Subjective Upon arrival pt was sitting in recliner. Pt had difficulty moving L knee at beginning of session. Nurse enters with pain meds. Pain Location: Left Location Body Site: Knee Comment: Pt reported pain, but was not rated. Mental Status Patient Orientation: Normal For Age Attachments: Oxygen, Wilson Catheter Transfers SCALE: Activities may be completed with or without assistive devices. 4-Xscosjhwtm-qfineeq completes the activity by him/herself with no assistance from a helper. 5-Set-up or Clean-up Assistance-helper sets up or cleans up; patient completes activity. [place] assists only prior to or following the activity. 4-Supervision or Touching Assistance-helper provides verbal cues and/or touching/steadying and/or contact guard assistance as patient completes activity. Assistance may be provided throughout the activity or intermittently. 3-Partial/Moderate Assistance-helper does LESS THAN HALF the effort. [place] lifts, holds or supports trunk or limbs, but provides less than half the effort. 2-Substantial/Maximal Assistance-helper does MORE THAN HALF the effort. [place] lifts or holds trunk or limbs and provides more than half the effort. 4-Gurbkijbn-kltxdh does ALL the effort. Patient does none of the effort to complete the activity. Or, the assistance of 2 or more helpers is required for the patient to complete the activity. If activity was not attempted, code reason: 7-Patient Refused. 9-Not Applicable-not attempted and the patient did not perform the activity before the current illness, exacerbation or injury. 10-Not Attempted due to Environmental Limitations-(lack of equipment, weather restraints, etc.). 88-Not Attempted due to Medical Conditions or Safety Concerns. Sit to Lying (QC): 3 Sit to Stand (QC): 3 Weight Bearing Full Weight Bearing Weight Bearing/Tolerated Gait Training Distance: 20' Walk 10 feet (QC): 4 Gait Assistive Device: FWW slow, antalgic Exercises Supine Ex: Ankle pumps (10), Heel Slides (2 x10), Straight leg raise (10) Seated Therapy Exercises: Long arc quads (10), Hamstring Curls (10) Assessment Current Status: Good Progress (Pt would benefit from more PT, to help with ROM, and strength of L knee.) Pt would benefit from more PT to help with ROM, and strength of the L knee. Patient appears to self limit due to pain and inactivity PLOF. PT Mcc Goals Mcc Goals PT Advertising Consultant Goals Time Frame: Sep 19, 2021 Roll Left & Right (QC): 6 Sit to Lying (QC): 6 Lying-Sitting on Side/Bed(QC): 6 Sit to Stand (QC): 4 Chair/Wnk-kq-Mmuro Xfer(QC): 4 Does the Patient Walk: No and Walking Goal IS indicated Walk 10 feet (QC): 4 Walk 50ft with 2 Turns (QC): 4 Walk 150 ft (QC): 4 PT Plan Problem List Problem List: Activity Tolerance, Functional Strength, Gait, Transfer Treatment/Plan Treatment Plan: Continue Plan of Care Treatment Plan: Bed Mobility, Education, Functional Activity Mic, Functional Strength, Gait, Safety, Therapeutic Exercise, Transfers Treatment Duration: Sep 19, 2021 Frequency: 11 times per week Estimated Hrs Per Day: .5 hour per day Patient and/or Family Agrees t: Yes Safety Risks/Education Patient Education: Gait Training, Transfer Techniques, Correct Positioning, Safety Issues Teaching Recipient: Patient Teaching Methods: Discussion Response to Teaching: Verbalize Understanding, Return Demonstration Time/GCodes Time In: 1330 Time Out: 1356 Total Billed Treatment Time: 26 Total Billed Treatment 1, EX 18, GT 8 ELISABETH QUINTERO GUT PULLER Sep 13, 2021 14:05
[2021-09-13] MEDS: MIRABEGRON 25 MG TAB (MYRBETRIQ) PO SCH (20:53)
[2021-09-13] MEDS: traZODone 100 MG (DESYREL) TAB PO SCH (20:53)
[2021-09-13] MEDS: rOPINIRole 0.25 MG (REQUIP) TAB PO SCH (20:53)
[2021-09-13] MEDS: SIMvastatin 40 MG (ZOCOR) TAB PO SCH (20:53)
[2021-09-13] MEDS: MONTELUKAST 10 MG (SINGULAIR) TAB PO SCH (20:53)
[2021-09-14 00:16] VITALS: BP 127/61
[2021-09-14 04:05] VITALS: BP 138/60
[2021-09-14] MEDS: morphine INJ 4 MG/ML 1 ML (VIAL/SYRINGE) IVP PRN ×3 (04:23→11:25)
[2021-09-14 05:29] LABS: HEMOGLOBIN 12.7 g/dL (11.5-16.0)
[2021-09-14] MEDS: MULTIVIT W/MINERALS TAB (THERAGRAN M) PO SCH (06:21)
[2021-09-14] MEDS: CELECOXIB 100 MG (CeleBREX) CAP PO SCH (08:03)
[2021-09-14] MEDS: PANTOPRAZOLE 40 MG (PROTONIX) TAB PO SCH (08:03)
[2021-09-14] MEDS: LORATADINE (CLARITIN) 10 MG TAB PO SCH (08:03)
[2021-09-14] MEDS: DOCUSATE SODIUM 100 MG (COLACE) CAP PO SCH (08:03)
[2021-09-14] MEDS: toPIRamate 100 MG (TOPAMAX) TAB PO SCH (08:03)
[2021-09-14] MEDS: APIXABAN 2.5 MG (ELIQUIS) TABLET PO SCH (08:04)
[2021-09-14] MEDS: busPIRone 15 MG (BUSPAR) TABLET PO SCH ×2 (08:04→13:09)
[2021-09-14] MEDS: GABAPENTIN 400 MG (NEURONTIN) CAP PO SCH ×2 (08:04→13:09)
[2021-09-14 08:09] VITALS: BP 143/64
[2021-09-14] MEDS: RT--FLUTICASONE/SALMETEROL 113-14 (AIRDUO RespiCLICK) IH SCH (10:01)
[2021-09-14] MEDS: RT-ALBUTEROL SULF 2.5 MG/3 ML PRE-MIX VIAL IH SCH (10:01)
--- NOTE | 2021-09-14 10:07 | Physical Therapy Daily Note ---
PT Daily Note-Current Subjective Pt. agrees to Rx with encouragement. Minimal c/o discomfort in left knee, states she really wants to go home soon. Mental Status Patient Orientation: Normal For Age Attachments: Oxygen (6L) Transfers SCALE: Activities may be completed with or without assistive devices. 8-Orxokxxxyq-svojvzn completes the activity by him/herself with no assistance from a helper. 5-Set-up or Clean-up Assistance-helper sets up or cleans up; patient completes activity. [place] assists only prior to or following the activity. 4-Supervision or Touching Assistance-helper provides verbal cues and/or touching/steadying and/or contact guard assistance as patient completes activity. Assistance may be provided throughout the activity or intermittently. 3-Partial/Moderate Assistance-helper does LESS THAN HALF the effort. [place] lifts, holds or supports trunk or limbs, but provides less than half the effort. 2-Substantial/Maximal Assistance-helper does MORE THAN HALF the effort. [place] lifts or holds trunk or limbs and provides more than half the effort. 4-Uhjcrpmjm-zsplgp does ALL the effort. Patient does none of the effort to complete the activity. Or, the assistance of 2 or more helpers is required for the patient to complete the activity. If activity was not attempted, code reason: 7-Patient Refused. 9-Not Applicable-not attempted and the patient did not perform the activity before the current illness, exacerbation or injury. 10-Not Attempted due to Environmental Limitations-(lack of equipment, weather restraints, etc.). 88-Not Attempted due to Medical Conditions or Safety Concerns. Roll Left & Right (QC): 6 Lying to Sitting/Side of Bed(Q: 4 Sit to Stand (QC): 6 Chair/Iij-ed-Cbauc Xfer(QC): 6 Toilet Transfer (QC): 6 Weight Bearing Full Weight Bearing Weight Bearing/Tolerated Gait Training Does the Patient Walk?: Yes Walk 10 feet (QC): 4 Gait Persons Needed: 1 Gait Assistive Device: FWW 25ftx2, needed assist for O2 management occas only, slow, heavy wt bearing on FWW, cues to turn to protect o2 tubing Exercises Supine Ex: Ankle pumps, Quad Set, Heel Slides (assisted), Scooting Supine Reps: 15 Seated Therapy Exercises: Ankle pumps, Sit to stand Seated Reps: 10 Treatments TRFs, gait, toileted with SBA, up in recliner after Rx with RT present Assessment Current Status: Good Progress pt. shares that she was limited PLOF to just inside her apt PT Turbine Operator Goals [facility] Goals PT Turbine Operator Goals Time Frame: Sep 19, 2021 Roll Left & Right (QC): 6 Sit to Lying (QC): 6 Lying-Sitting on Side/Bed(QC): 6 Sit to Stand (QC): 4 Chair/Wwe-rn-Lzxca Xfer(QC): 4 Does the Patient Walk: No and Walking Goal IS indicated Walk 10 feet (QC): 4 Walk 50ft with 2 Turns (QC): 4 Walk 150 ft (QC): 4 PT Plan Treatment/Plan Treatment Plan: Continue Plan of Care Treatment Plan: Bed Mobility, Education, Functional Activity Mic, Functional Strength, Gait, Safety, Therapeutic Exercise, Transfers Treatment Duration: Sep 19, 2021 Frequency: 11 times per week Estimated Hrs Per Day: .5 hour per day Patient and/or Family Agrees t: Yes Safety Risks/Education Patient Education: Gait Training, Transfer Techniques, Correct Positioning, Disease Process, Safety Issues Teaching Recipient: Patient Teaching Methods: Demonstration, Discussion Response to Teaching: Verbalize Understanding, Return Demonstration, Reinforcement Needed Time/GCodes Time In: 930 Time Out: 1000 Total Billed Treatment Time: 30 Total Billed Treatment 1,GT15m,EX15m NURA MENJIVAR RIVET MAKER Sep 14, 2021 10:07
[2021-09-14 11:41] VITALS: BP 134/81
--- NOTE | 2021-09-14 13:19 | Physical Therapy Daily Note ---
PT Daily Note-Current Subjective Pt. agrees to Rx. Wants to go back to bed after the Rx. c/o pain in left knee at 5/10. Pain Numeric Pain Scale: 5-Moderate Pain Location: Left Location Body Site: Knee Pain Description: Ache Mental Status Patient Orientation: Normal For Age Attachments: Oxygen (6L) Transfers SCALE: Activities may be completed with or without assistive devices. 5-Bgwzbawavz-jtdvlwk completes the activity by him/herself with no assistance from a helper. 5-Set-up or Clean-up Assistance-helper sets up or cleans up; patient completes activity. [place] assists only prior to or following the activity. 4-Supervision or Touching Assistance-helper provides verbal cues and/or touching/steadying and/or contact guard assistance as patient completes activity. Assistance may be provided throughout the activity or intermittently. 3-Partial/Moderate Assistance-helper does LESS THAN HALF the effort. [place] lifts, holds or supports trunk or limbs, but provides less than half the effort. 2-Substantial/Maximal Assistance-helper does MORE THAN HALF the effort. [place] lifts or holds trunk or limbs and provides more than half the effort. 4-Tblcbczhr-xgahno does ALL the effort. Patient does none of the effort to complete the activity. Or, the assistance of 2 or more helpers is required for the patient to complete the activity. If activity was not attempted, code reason: 7-Patient Refused. 9-Not Applicable-not attempted and the patient did not perform the activity before the current illness, exacerbation or injury. 10-Not Attempted due to Environmental Limitations-(lack of equipment, weather restraints, etc.). 88-Not Attempted due to Medical Conditions or Safety Concerns. Roll Left & Right (QC): 6 Lying to Sitting/Side of Bed(Q: 4 Sit to Stand (QC): 6 Chair/Qaz-gp-Kzxgc Xfer(QC): 6 Weight Bearing Full Weight Bearing Weight Bearing/Tolerated Gait Training Does the Patient Walk?: Yes Gait Assistive Device: FWW 25ft, 35ft CGA, slow, O2 insitiu , therapist handling tubing, fatigued with gait Exercises Supine Ex: Ankle pumps, Quad Set, Heel Slides, Straight leg raise (assisted) Supine Reps: 15 Seated Therapy Exercises: Ankle pumps, Sit to stand Seated Reps: 8 Treatments in bed after Rx, cold pack insitu, [place] at hand Assessment Current Status: Good Progress audible breathing exhale PT Residential Goals Meat Supervisor Goals PT Residential Goals Time Frame: Sep 19, 2021 Roll Left & Right (QC): 6 Sit to Lying (QC): 6 Lying-Sitting on Side/Bed(QC): 6 Sit to Stand (QC): 4 Chair/Get-vb-Mietx Xfer(QC): 4 Does the Patient Walk: No and Walking Goal IS indicated Walk 10 feet (QC): 4 Walk 50ft with 2 Turns (QC): 4 Walk 150 ft (QC): 4 PT Plan Treatment/Plan Treatment Plan: Continue Plan of Care Treatment Plan: Bed Mobility, Education, Functional Activity Mic, Functional Strength, Gait, Safety, Therapeutic Exercise, Transfers Treatment Duration: Sep 19, 2021 Frequency: 11 times per week Estimated Hrs Per Day: .5 hour per day Patient and/or Family Agrees t: Yes Safety Risks/Education Patient Education: Gait Training, Transfer Techniques, Correct Positioning, Disease Process, Safety Issues Teaching Recipient: Patient Teaching Methods: Demonstration, Discussion Response to Teaching: Verbalize Understanding, Return Demonstration, Reinforcement Needed Time/GCodes Time In: 1240 Time Out: 1305 Total Billed Treatment Time: 25 Total Billed Treatment 1,GT13m,EX12m NURA MENJIVAR WAFER PRODUCTION LEAD WORKER Sep 14, 2021 13:19
--- NOTE | 2021-09-14 14:24 | Progress Note - Ortho ---
Progress Note Subjective Date of Exam 09/14/21 Chief Complaint POD #2 L TKA HPI/Events since last exam making progress with therapy, wants to go home Review of Systems - Allergies: Coded Allergies: codeine (Verified Allergy, Severe, ANAPHYLAXIS BUT PT CAN TAKE MORPHINE, 08/19/19) sulfamethoxazole (Verified Allergy, Severe, 08/19/19) "STROKE-LIKE" SYMPTOMS trimethoprim (Verified Allergy, Severe, 08/19/19) "STROKE-LIKE" SYMPTOMS venom-honey bee (Verified Allergy, Unknown, 08/19/19) Home Meds Reported Medications Celecoxib (Celebrex) 50 Mg Capsule, 50 MG PO BID, CAP 09/06/21 Trazodone HCl (Trazodone HCl) 100 Mg Tablet, 100 MG PO HS, TAB 01/13/20 Pantoprazole Sodium (Pantoprazole Sodium) 40 Mg Tablet.dr, 40 MG PO DAILY, TAB 01/13/20 Cetirizine HCl (Cetirizine HCl) 10 Mg Tablet, 10 MG PO DAILY, TAB 01/13/20 Tizanidine HCl (Tizanidine HCl) 4 Mg Capsule, 4 MG PO TID PRN for MUSCLE SPASMS, CAP 01/13/20 Albuterol Sulfate (Albuterol Sulfate) 2.5 Mg/3 Ml Vial.neb, 2.5 MG NEB BID PRN for SHORTNESS OF BREATH, EA 01/13/19 Albuterol Sulfate (Albuterol Sulfate) 2.5 Mg/3 Ml Vial.neb, 2.5 MG NEB BID, EA 01/13/19 Tiotropium Garden (Spiriva) 1 Inh Aerp, 1 CAP INH DAILY, INHALER 01/13/19 Albuterol Sulfate (PROAIR HFA) 1 Puff Puff, 2 PUFF IH Q6H PRN for SHORTNESS OF BREATH, INHALER 1 PUFF = 90 MCG 01/13/19 Gabapentin (Gabapentin) 400 Mg Capsule, 400 MG PO TID, CAP 01/13/19 Hydroxyzine HCl (Hydroxyzine HCl) 25 Mg Tablet, 25 MG PO TID PRN for ANXIETY, TAB 01/13/19 Buspirone HCl (Buspirone HCl) 15 Mg Tablet, 15 MG PO TID, TAB 01/13/19 Mirabegron (Myrbetriq) 50 Mg Tab.er.24h, 50 MG PO HS, TAB 01/13/19 Escitalopram Oxalate (Escitalopram Oxalate) 20 Mg Tablet, 20 MG PO DAILY, TAB 01/13/19 Topiramate (Topiramate) 100 Mg Tablet, 100 MG PO DAILY, TAB 01/13/19 Tramadol HCl (Tramadol HCl) 50 Mg Tablet, 50-100 MG PO TID, TAB 01/13/19 Meloxicam (Meloxicam) 7.5 Mg Tablet, 7.5 MG PO DAILY, TAB 03/26/18 Budesonide/Formoterol Fumarate (Symbicort 160-4.5 Mcg Inhaler) 10.2 Gm Hfa.aer.ad, 2 PUFF INH BID, INHALER 04/12/16 Montelukast Sodium (Montelukast Sodium) 10 Mg Tablet, 10 MG PO HS, TAB 04/12/16 Ropinirole HCl (Ropinirole HCl) 0.5 Mg Tablet, 0.5 MG PO HS, TAB 04/12/16 Simvastatin (Simvastatin) 40 Mg Tablet, 40 MG PO HS, TAB 04/12/16 Objective Exam L Knee: Some drainage from lower portion of incision, ruperto intact, +DF of ankle, no s/s of DVT Vital Signs Vital Signs Date Time Temp Pulse Resp B/P (MAP) Pulse Ox O2 Delivery O2 Flow Rate FiO2 09/14/21 11:41 36.9 84 19 134/81 (98) 96 High Flow N/C 6.00 09/14/21 10:01 97 Nasal Cannula 6.00 09/14/21 08:09 36.3 84 16 143/64 (90) 97 High Flow N/C 6.00 09/14/21 08:00 High Flow N/C 6.00 09/14/21 04:05 37.4 88 18 138/60 (86) 96 High Flow N/C 6.00 09/14/21 00:16 36.5 88 20 127/61 (83) 97 High Flow N/C 6.00 09/13/21 21:00 High Flow N/C 6.00 09/13/21 20:15 98 Nasal Cannula 6.00 09/13/21 19:54 35.7 90 18 148/66 (93) 98 Nasal Cannula 6.00 09/13/21 16:00 36.0 77 20 171/74 (106) 99 Nasal Cannula 6.00 I & O 09/14/21 07:00 Intake Total 1020 ml Output Total 2075 ml Balance -1055 ml Lab Results Laboratory Tests 09/14/21 05:22: Hemoglobin 12.7, Hematocrit 39 Microbiology 09/12/21 MRSA Screen - Final, Complete MRSA not isolated Assessment and Plan Assessment Left Knee Primary Osteoarthritis s/p L TKA Problem List Left Knee Primary Osteoarthritis s/p L TKA Plan D/C Home with Home Health BID dressing changes until incision stops draining Final Diagonsis Left Knee Primary Osteoarthritis s/p L TKA Level of the visit: Level 3 (postop global) BRIANNA SANTOS MD Sep 14, 2021 14:24
[2021-09-14] MEDS ORDERED: APIX2.5T PO (14:27)
--- NOTE | 2021-09-14 14:29 | D/C HH Face to Face Order ---
D/C Face to Face Orders Instructions for Patient Via [facility], Patient Instructions/FollowUp: WBAT with walker, dry dressing twice daily until stops draining, home health therapy, f/u in 2 weeks Physician to follow Patient: Tai Reynolds Discharge Diet for Home: No Restrictions Patient Data-Allergies,Ht & Wt Patient Allergies: Coded Allergies: codeine (Verified Allergy, Severe, ANAPHYLAXIS BUT PT CAN TAKE MORPHINE, 08/19/19) sulfamethoxazole (Verified Allergy, Severe, 08/19/19) "STROKE-LIKE" SYMPTOMS trimethoprim (Verified Allergy, Severe, 08/19/19) "STROKE-LIKE" SYMPTOMS venom-honey bee (Verified Allergy, Unknown, 08/19/19) Height (Feet): 5 Height (Inches): 3.00 Weight (Pounds): 317 Weight (Ounces): 8.0 Home Health Need/Face to Face Date of Face to Face: Sep 14, 2021 Clinical Findings: Muscle weakness, Pain with ambulation I have seen Pt [id number]: Yes Discharged To: Home Diagnosis/Conditions: Left Knee Primary Osteoarthritis s/p L TKA Patient is Homebound due to: Melissa fall risk due to instabilty, Muscle weakness, Pain w/ambulation Homebound Status Due to the above stated illness, injury or surgical procedure (medical condition or diagnosis) and associated clinical findings, the patient is homebound because of his/her inability to leave home except with aid of a supportive device and/or person AND leaving the home requires a considerable and taxing effort or is medically contraindicated. Pt req the following assistanc: Walker Home Health Nursing Orders Home Health Services Order: Physical Therapy-Evaluate & Treat Home Health Infusion Therapy Line Start Date: Sep 12, 2021 Therapy Orders Therapy Specific Orders: Gait training, Increase strength/endurance, Restore ROM Certify Stmt I certify that this patient is under my care and that I, a nurse practitioner or a physician; a undertaker assistant working with me, had a face to face encounter that - meets the physician face to face encounter requirements with this patient as dated. TAI REYNOLDS MD Sep 14, 2021 14:29
[2021-09-14 16:00] VITALS: BP 137/62
== END 2021-09-14 16:51 | disposition home health service (06) ==
LOC: SDC 06:08 → EDSTATUS 07:30 → 4TH 10:58 → SDC 13:54 → 4TH 13:54
PROVIDERS: ADMIT Orthopaedic Surgery; ATTEND Orthopaedic Surgery
DX: M17.12 Unilateral primary osteoarthritis, left knee (principal); E66.01 Morbid (severe) obesity due to excess calories; F17.210 Nicotine dependence, cigarettes, uncomplicated; Z96.651 Presence of right artificial knee joint; Z79.1 Long term (current) use of non-steroidal anti-inflammatories (NSAID); Z68.42 Body mass index [BMI] 45.0-49.9, adult
CPT/HCPCS: 27447; 73560; 85014 ×2; 85018 ×2; 87081; 94640 ×5; 94664; 94760 ×3; 96374; 96376; 97110 ×2; 97116 ×2; 97161; 97165; C1713 ×2; C1776 ×3; G0378; G0379; 36415

== ENCOUNTER → 2021-09-27 | Outpatient (CLI) | payer MEDICARE, MEDICAID ==
[~2021-09-27] MED LIST changes: +APIX2.5T PO; +CIPR-225 PO; +OMEP20TA56 PO; -OMEP20TA7 PO
== END ==
LOC: ORTHO 10:30
PROVIDERS: ATTEND Orthopaedic Surgery
DX: Z47.89 Encounter for other orthopedic aftercare (principal); Z98.890 Other specified postprocedural states

== ENCOUNTER 2021-10-03 08:08 | Emergency (ER) | payer MEDICARE, MEDICAID ==
[~2021-10-03] VITALS: Ht 160 cm; Wt 119.0 kg
[~2021-10-03 08:08] MED LIST changes: -CIPR-225 PO; -OMEP20TA56 PO; +OMEP20TA7 PO
[2021-10-03] MEDS ORDERED: fentaNYL INJ 100 MCG/2 ML AMP IVP ONE (09:00)
[2021-10-03 09:03] VITALS: BP_SYST 139; BP_SYST 145; BP_DIAS 77; BP_DIAS 79; BP_DIAS 81
--- NOTE | 2021-10-03 09:15 | ED Lower Extremity ---
General Chief Complaint: Lower Extremity Stated Complaint: FELL, L KNEE PAIN Nursing Triage Note: pt states she had lt knee replaced on 09/12/21, cc of fall this a.m. and lac to lt knee, bandage in place bleeding controlled at triage. pt ambulated with difficulty from waiting rm. Source: patient Exam Limitations: no limitations History of Present Illness Date Seen by Provider: Oct 03, 2021 Time Seen by Provider: 08:44 Initial Comments Patient to ER by private conveyance from home with chief complaint she was sitting on the couch she got up to walk out on the patio and got dizzy falling to her knees. She struck her left knee where she had surgery [address] Santos[address] She opened up the wound with the impact on concrete. She has a chronic history of dizziness and has had this worked up extensively by Dr. Anthony villela who says in the last year she has had a clean heart catheterization as well as echocardiogram. Heart cath 2013 showed a EF of 60% and no significant artery disease. MPI 2019 showed an EF of 79% and small amount of basal inferior ischemia and echocar diogram 2018 showed EF of 60 to 65% with mild tricuspid regurgitation. Smokes 2 packs a day plus vaporized nicotine, COPD, hyperlipidemia, GERD and bilateral knee replacement. Peripheral arterial disease noted on AMAN from 2018. Allergies and Home Medications Allergies Coded Allergies: codeine (Verified Allergy, Severe, ANAPHYLAXIS BUT PT CAN TAKE MORPHINE, 08/19/19) sulfamethoxazole (Verified Allergy, Severe, 08/19/19) "STROKE-LIKE" SYMPTOMS trimethoprim (Verified Allergy, Severe, 08/19/19) "STROKE-LIKE" SYMPTOMS venom-honey bee (Verified Allergy, Unknown, 08/19/19) Patient Home Medication List Home Medication List Reviewed: Yes Albuterol Sulfate (Proair Hfa) 1 Puff Puff, 2 PUFF IH Q6H PRN for SHORTNESS OF BREATH, (Reported) Entered as Reported by: MIGUEL MARINELLI on 01/13/19 1332 Albuterol Sulfate (Albuterol Sulfate) 2.5 Mg/3 Ml Vial.neb, 2.5 MG NEB BID, (Reported) Entered as Reported by: MIGUEL MARINELLI on 01/13/19 1332 Albuterol Sulfate (Albuterol Sulfate) 2.5 Mg/3 Ml Vial.neb, 2.5 MG NEB BID PRN for SHORTNESS OF BREATH, (Reported) Entered as Reported by: MIGUEL MARINELLI on 01/13/19 1332 Apixaban (Eliquis) 2.5 Mg Tablet, 2.5 MG PO BID Prescribed by: BRIANNA SANTOS MD on 09/14/21 1427 Budesonide/Formoterol Fumarate (Symbicort 160-4.5 Mcg Inhaler) 10.2 Gm Hfa.aer.ad, 2 PUFF INH BID, (Reported) Entered as Reported by: MIGUEL MARINELLI on 04/12/16 1258 Buspirone HCl (Buspirone HCl) 15 Mg Tablet, 15 MG PO TID, (Reported) Entered as Reported by: MIGUEL MARINELLI on 01/13/19 1320 Celecoxib (Celebrex) 50 Mg Capsule, 50 MG PO BID, (Reported) Entered as Reported by: JANELL CUTLER on 09/06/21 0912 Cetirizine HCl (Cetirizine HCl) 10 Mg Tablet, 10 MG PO DAILY, (Reported) Entered as Reported by: ROSALIND QUINTANA on 01/13/20 0807 Escitalopram Oxalate (Escitalopram Oxalate) 20 Mg Tablet, 20 MG PO DAILY, (Reported) Entered as Reported by: MIGUEL MARINELLI on 01/13/19 1320 Gabapentin (Gabapentin) 400 Mg Capsule, 400 MG PO TID, (Reported) Entered as Reported by: MIGUEL MARINELLI on 01/13/19 1320 Hydroxyzine HCl (Hydroxyzine HCl) 25 Mg Tablet, 25 MG PO TID PRN for ANXIETY, (Reported) Entered as Reported by: MIGUEL MARINELLI on 01/13/19 1320 Meloxicam (Meloxicam) 7.5 Mg Tablet, 7.5 MG PO DAILY, (Reported) Entered as Reported by: MARIBETH TAYLOR on 03/26/18 1036 Mirabegron (Myrbetriq) 50 Mg Tab.er.24h, 50 MG PO HS, (Reported) Entered as Reported by: MIGUEL MARINELLI on 01/13/19 1320 Montelukast Sodium (Montelukast Sodium) 10 Mg Tablet, 10 MG PO HS, (Reported) Entered as Reported by: MIGUEL MARINELLI on 04/12/16 1258 Pantoprazole Sodium (Pantoprazole Sodium) 40 Mg Tablet.dr, 40 MG PO DAILY, (Reported) Entered as Reported by: ROSALIND QUINTANA on 01/13/20 0807 Ropinirole HCl (Ropinirole HCl) 0.5 Mg Tablet, 0.5 MG PO HS, (Reported) Entered as Reported by: MIGUEL MARINELLI on 04/12/16 1258 Simvastatin (Simvastatin) 40 Mg Tablet, 40 MG PO HS, (Reported) Entered as Reported by: MIGUEL MARINELLI on 04/12/16 1258 Tiotropium Ensign (Spiriva) 1 Inh Aerp, 1 CAP INH DAILY, (Reported) Entered as Reported by: MIGUEL MARINELLI on 01/13/19 1332 Tizanidine HCl (Tizanidine HCl) 4 Mg Capsule, 4 MG PO TID PRN for MUSCLE SPASMS, (Reported) Entered as Reported by: ROSALIND QUINTANA on 01/13/20 0807 Topiramate (Topiramate) 100 Mg Tablet, 100 MG PO DAILY, (Reported) Entered as Reported by: MIGUEL MARINELLI on 01/13/19 1320 Tramadol HCl (Tramadol HCl) 50 Mg Tablet, 50-100 MG PO TID, (Reported) Entered as Reported by: MIGUEL MARINELLI on 01/13/19 1320 Trazodone HCl (Trazodone HCl) 100 Mg Tablet, 100 MG PO HS, (Reported) Entered as Reported by: ROSALIND QUINTANA on 01/13/20 0807 Review of Systems Constitutional: No chills, No fever, No malaise EENTM: No ear discharge, No ear pain Respiratory: No cough, No phlegm Cardiovascular: No chest pain, No edema, No palpitations Gastrointestinal: No abdominal pain, No nausea, No vomiting Genitourinary: No discharge, No dysuria : No Musculoskeletal: see HPI; No back pain; joint pain Skin: see HPI All Other Systems Reviewed Negative Unless Noted: Yes Past Kdxkmre-Aoqjez-Lmdlgf Hx Patient Social History Tobacco Use?: Yes Smoking Status: Current Everyday Smoker Use of E-Cig and/or Vaping dev: Yes E-Cig or Vaping type used: Nicotine Substance type: Methamphetamine (Hx of) Alcohol Use?: No Immunizations Up To Date Tetanus Booster (TDap): Unknown PED Vaccines UTD: No Seasonal Allergies Seasonal Allergies: Yes (INHALER AND NEBULIZER USE) Past Medical History Surgeries: Yes (RIGHT TKR, LEFT KNEE SCOPE, HEART CATH, LEFT SHOULDER SCOPE, BILAT CTR) Bladder Surgery, Gallbladder, Hysterectomy, Orthopedic Respiratory: Yes (, lung ca) Asthma, Sleep Apnea, COPD Currently Using CPAP: Yes Currently Using BIPAP: No Cardiac: Yes Coronary Artery Disease, High Cholesterol, Hypertension Neurological: No Reproductive Disorders: No (HYTERECTOMY) 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 Sexually Transmitted Disease: No HIV/AIDS: No Genitourinary: Yes Bladder Infection, Neurogenic Bladder Gastrointestinal: Yes Gastroesophageal Reflux, Chronic Constipation Musculoskeletal: Yes (BACK PROBLEMS) Degenerate Disk Disease, Arthritis, Chronic Back Pain Endocrine: No HEENT: Yes (GLASSES) Cataract Loss of Vision: Denies Hearing Impairment: Denies Cancer: Yes Lung Psychosocial: Yes Anxiety, Depression Integumentary: Yes Psoriasis Blood Disorders: No Adverse Reaction/Blood Tranf: No (N/A) Family Medical History Cardiovascular disease 19 MOTHER FH: hepatic cirrhosis 19 FATHER, Myocardial infarction 19 FATHER, Rectal cancer 19 MOTHER No Pertinent Family Hx Physical Exam Vital Signs Vital Signs - First Documented 10/03/21 08:42 Temp 35.5 Pulse 68 Resp 20 B/P (MAP) 135/77 (96) Pulse Ox 97 O2 Delivery Room Air Capillary Refill : Less Than 3 Seconds Height, Weight, BMI Height: 5'3.00" Weight: 317lbs. 8.0oz. 144.607237ly; 46.00 BMI Method:Stated General Appearance: WD/WN, mild distress HEENT: PERRL/EOMI, pharynx normal Neck: full range of motion, normal inspection Cardiovascular: normal peripheral pulses, regular rate, rhythm Respiratory: lungs clear, normal breath sounds, no respiratory distress, no accessory muscle use Gastrointestinal: normal bowel sounds, non tender, soft Hips: bilateral hip non-tender, bilateral hip normal inspection, bilateral hip normal range of motion, bilateral hip no evidence of injury Knees: right knee non-tender, right knee normal inspection, right knee normal range of motion, right knee no evidence of injury; left knee pain, left knee soft tissue tenderness, left knee other (6 cm separation of the surgical wound without significant exsanguination.) Ankles: bilateral ankle non-tender, bilateral ankle normal inspection, bilateral ankle normal range of motion, bilateral ankle no evidence of injury Feet: bilateral foot non-tender, bilateral foot normal inspection, bilateral foot normal range of motion, bilateral foot no evidence of injury Neurologic/Psychiatric: no motor/sensory deficits, alert, normal mood/affect, oriented x 3 Skin: normal color, warm/dry, other (6 cm linear laceration that is hemostatic) Progress/Results/Core Measures Results/Orders Lab Results Laboratory Tests Test 10/03/21 09:05 10/03/21 09:30 Range/Units White Blood Count 8.8 4.3-11.0 10^3/uL Red Blood Count 4.24 3.80-5.11 10^6/uL Hemoglobin 13.3 11.5-16.0 g/dL Hematocrit 43 35-52 % Mean Corpuscular Volume 101 H 80-99 fL Mean Corpuscular Hemoglobin 31 25-34 pg Mean Corpuscular Hemoglobin Concent 31 L 32-36 g/dL Red Cell Distribution Width 14.9 H 10.0-14.5 % Platelet Count 224 130-400 10^3/uL Mean Platelet Volume 10.8 9.0-12.2 fL Immature Granulocyte % (Auto) 1 % Neutrophils (%) (Auto) 63 42-75 % Lymphocytes (%) (Auto) 25 12-44 % Monocytes (%) (Auto) 10 0-12 % Eosinophils (%) (Auto) 1 0-10 % Basophils (%) (Auto) 0 0-10 % Neutrophils # (Auto) 5.6 1.8-7.8 10^3/uL Lymphocytes # (Auto) 2.2 1.0-4.0 10^3/uL Monocytes # (Auto) 0.9 0.0-1.0 10^3/uL Eosinophils # (Auto) 0.1 0.0-0.3 10^3/uL Basophils # (Auto) 0.0 0.0-0.1 10^3/uL Immature Granulocyte # (Auto) 0.1 0.0-0.1 10^3/uL Sodium Level 143 135-145 MMOL/L Potassium Level 3.9 3.6-5.0 MMOL/L Chloride Level 108 H 98-107 MMOL/L Carbon Dioxide Level 23 21-32 MMOL/L Anion Gap 12 5-14 MMOL/L Blood Urea Nitrogen 23 H 7-18 MG/DL Creatinine 0.89 0.60-1.30 MG/DL Estimat Glomerular Filtration Rate 75 BUN/Creatinine Ratio 26 Glucose Level 93 70-105 MG/DL Calcium Level 9.5 8.5-10.1 MG/DL Urine Color YELLOW Urine Clarity CLEAR Urine pH 5.5 5-9 Urine Specific Glenn >=1.030 1.016-1.022 Urine Protein NEGATIVE NEGATIVE Urine Glucose (UA) NEGATIVE NEGATIVE Urine Ketones NEGATIVE NEGATIVE Urine Nitrite POSITIVE H NEGATIVE Urine Bilirubin NEGATIVE NEGATIVE Urine Urobilinogen 0.2 < = 1.0 MG/DL Urine Leukocyte Esterase TRACE H NEGATIVE Urine RBC (Auto) NEGATIVE NEGATIVE Urine RBC NONE /HPF Urine WBC 10-25 H /HPF Urine Squamous Epithelial Cells 2-5 /HPF Urine Crystals NONE /LPF Urine Bacteria LARGE H /HPF Urine Casts NONE /LPF Urine Mucus SMALL H /LPF Urine Culture Indicated YES Urine Opiates Screen NEGATIVE NEGATIVE Urine Oxycodone Screen NEGATIVE NEGATIVE Urine Methadone Screen NEGATIVE NEGATIVE Urine Propoxyphene Screen NEGATIVE NEGATIVE Urine Barbiturates Screen NEGATIVE NEGATIVE Ur Tricyclic Antidepressants Screen NEGATIVE NEGATIVE Urine Phencyclidine Screen NEGATIVE NEGATIVE Urine Amphetamines Screen NEGATIVE NEGATIVE Urine Methamphetamines Screen NEGATIVE NEGATIVE Urine Benzodiazepines Screen NEGATIVE NEGATIVE Urine Cocaine Screen NEGATIVE NEGATIVE Urine Cannabinoids Screen NEGATIVE NEGATIVE My Orders Orders - MIGUEL NIXON Fentanyl Inj (Sublimaze Injection) (10/03/21 09:00) Cbc With Automated Diff (10/03/21 08:48) Basic Metabolic Panel (10/03/21 08:48) Knee, Left, 3 Views (10/03/21 08:48) Ua Culture If Indicated (10/03/21 08:49) Drug Screen Stat (Urine) (10/03/21 08:49) Orthostatic Vital Signs (Adult (10/03/21 08:49) Urine Culture (10/03/21 09:30) Cefazolin 2 Gm Iv Premixed (Ancef 2 Gm P (10/03/21 10:45) Bupivacaine 0.25% W/Epi Inj (Marcaine 0. (10/03/21 11:45) Lidocaine 1% Inj 20 Ml (Xylocaine 1% Inj (10/03/21 11:45) Medications Given in ED Current Medications Medications Dose Ordered Sig/Alfred Route Start Time Stop Time Status Last Admin Dose Admin Bupivacaine HCl/ Epinephrine Bitart 30 ml ONCE ONCE INJ 10/03/21 11:45 10/03/21 11:46 DC 10/03/21 11:55 30 ML Cefazolin Sodium/ Dextrose 50 ml @ 100 mls/hr ONCE ONCE IV 10/03/21 10:45 10/03/21 11:14 DC 10/03/21 11:24 100 MLS/HR Fentanyl Citrate 75 mcg ONCE ONCE IVP 10/03/21 09:00 10/03/21 09:01 DC 10/03/21 09:07 75 MCG Lidocaine HCl 20 ml ONCE ONCE INJ 10/03/21 11:45 10/03/21 11:46 DC 10/03/21 11:56 20 ML Vital Signs/I&O 10/03/21 10/03/21 10/03/21 10/03/21 08:42 09:03 09:07 13:23 Temp 35.5 35.5 35.5 Pulse 68 67 65 76 90 Resp 20 20 B/P (MAP) 135/77 (96) 145/77 (99) 154/75 145/79 (101) 139/81 (100) Pulse Ox 97 96 O2 Delivery Room Air Room Air Blood Pressure Mean: 96 Progress Progress Note #1: Time: 10:11 Progress Note Pressure dressing over the wound to reapproximate skin edges. TDAP will be given. She is already on some kind of antibiotics for her cold by Oscar Choi. A phone call was placed to Dr. Brianna Santos and a voice message was left. Progress Note #2: Time: 13:01 Progress Note 1030: Discussed the case with Dr. Santos who agrees to either admit the patient and take her to cleanout when he gets back in town or ask Dr. Mitchell to address the patient's needs. 1040: Call Dr. Mitchell who says he would come down to see the patient. Dr. Mitchell did see the patient discussed the case with Dr. Santos and agreed to do a cleanout here in the ER under local anesthesia. Patient just ate before coming in so could not go to general anesthesia until after 1630 today. Patient agreed to this so they cleaned the wound out under local anesthesia and reapproximated skin edges using nylon. The wound was cleaned with Betadine and Kerlix scrub. See the orthopedic surgeon's note for procedure notes. He has prescribed her antibiotics, pain medicines and to follow-up next Sunday with Dr. Santos. Diagnostic Imaging Diagonstic Imaging: Xray Plain Films/CT/US/NM/MRI: knee Comments [facility]. [place], [place] NAME: ELLIOT GREENBERG [facility] REC#: [id number] PT STATUS: REG ER : 1960 PHYSICIAN: MIGUEL NIXON MD ADMIT DATE: 10/03/21/ER Draft Date of Exam:10/03/21 KNEE, LEFT, 3 VIEWS INDICATION: Left knee arthroplasty. FINDINGS: 3 views of the left knee demonstrate a well-seated arthroplasty without evidence of fracture, dislocation or joint effusion. IMPRESSION: Well-seated stable left knee arthroplasty. Dictated on workstation # [id number] Dict: 10/03/21929 Trans: 10/03/21937 CV [id number] Interpreted by: RAD PINEDA Electronically signed by: Reviewed: Reviewed by Me Departure Impression Primary Impression: Surgical wound breakdown Qualified Codes: T81.31XA - Disruption of external operation (surgical) wound, not elsewhere classified, initial encounter Additional Impressions: Fall Qualified Codes: W19.XXXA - Unspecified fall, initial encounter Knee pain Qualified Codes: M25.562 - Pain in left knee UTI (urinary tract infection) Qualified Codes: N30.00 - Acute cystitis without hematuria Disposition: HOME, SELF-CARE Condition: Improved Departure-Patient Inst. Decision time for Depature: 13:04 Referrals: [facility] [place] Primary Care Physician [facility] (Family) Primary Care Physician BRIANNA SANTOS MD Patient Instructions: Preventing Falls ED, Urinary Tract Infection, Adult ED Add. Discharge Instructions: Keep the wound clean with a dry gauze dressing. Change it at least daily or more frequently if it becomes soiled. Use the pain medicines as prescribed. Use the antibiotics as prescribed. This should cover infection in your knee as well as your urinary tract infection. Drink plenty of fluids. Follow-up with Dr. Santos at your scheduled appointment next week. All discharge instructions reviewed with patient and/or family. Voiced understanding. Copy Copies To 1: BRIANNA SANTOS MD, TITUS J Oct 03, 2021 09:15
[2021-10-03 09:22] LABS: BASOPHILS % (AUTO) 0 % (0-10); EOSINOPHILS # (AUTO) 0.1 10^3/uL (0.0-0.3); EOSINOPHILS % (AUTO) 1 % (0-10); HEMATOCRIT 43 % (35-52); HEMOGLOBIN 13.3 g/dL (11.5-16.0); LYMPHOCYTES # (AUTO) 2.2 10^3/uL (1.0-4.0); LYMPHOCYTES % (AUTO) 25 % (12-44); MEAN CORPUSCULAR HEMOGLOBIN 31 pg (25-34); MEAN CORPUSCULAR HGB CONC 31 g/dL (32-36); MEAN CORPUSCULAR VOLUME 101 fL (80-99); MEAN PLATELET VOLUME 10.8 fL (9.0-12.2); MONOCYTES # (AUTO) 0.9 10^3/uL (0.0-1.0); MONOCYTES % (AUTO) 10 % (0-12); NEUTROPHILS # (AUTO) 5.6 10^3/uL (1.8-7.8); NEUTROPHILS % (AUTO) 63 % (42-75); PLATELET COUNT 224 10^3/uL (130-400); WHITE BLOOD COUNT 8.8 10^3/uL (4.3-11.0)
[2021-10-03 09:36] LABS: CALCIUM 9.5 MG/DL (8.5-10.1); CREATININE SERUM 0.89 MG/DL (0.60-1.30); POTASSIUM 3.9 MMOL/L (3.6-5.0)
[2021-10-03 09:38] LABS: BILIRUBIN,URINE NEGATIVE (NEGATIVE); CLARITY,URINE CLEAR; COLOR,URINE YELLOW; GLUCOSE, URINE (UA) NEGATIVE (NEGATIVE); KETONES,URINE NEGATIVE (NEGATIVE); LEUKOCYTE ESTERASE ,URINE TRACE (NEGATIVE); NITRITE,URINE POSITIVE (NEGATIVE); PH,URINE 5.5 (5-9); PROTEIN,URINE NEGATIVE (NEGATIVE)
--- NOTE | 2021-10-03 09:39 | Diagnostic Imaging Report ---
INDICATION: Left knee arthroplasty. FINDINGS: 3 views of the left knee demonstrate a well-seated arthroplasty without evidence of fracture, dislocation or joint effusion. IMPRESSION: Well-seated stable left knee arthroplasty. Dictated by: Dictated on workstation # [id number]
[2021-10-03 09:54] LABS: AMPHETAMINE SCREEN, URINE NEGATIVE (NEGATIVE); BARBITURATE SCREEN URINE NEGATIVE (NEGATIVE); BENZODIAZEPINES SCREEN URINE NEGATIVE (NEGATIVE); CANNABINOID SCREEN, URINE NEGATIVE (NEGATIVE); COCAINE SCREEN URINE NEGATIVE (NEGATIVE); METHADONE STAT NEGATIVE (NEGATIVE); METHAMPHETAMINE SCREEN URINE S NEGATIVE (NEGATIVE); OPIATE SCREEN URINE NEGATIVE (NEGATIVE); OXYCODONE STAT NEGATIVE (NEGATIVE); PROPOXYPHENE STAT NEGATIVE (NEGATIVE); TRICYCLIC ANTIDEPRESSANTS SCRE NEGATIVE (NEGATIVE)
[2021-10-03 09:58] LABS: BACTERIA,URINE LARGE /HPF
[2021-10-03] MEDS ORDERED: ceFAZolin 2 GM IV Premixed 50 ML IV ONE (10:45)
[2021-10-03] MEDS ORDERED: LIDOCAINE 1% INJ 20 ML VIAL INJ ONE (11:45)
[2021-10-03] MEDS ORDERED: BUP/EPI 0.25% 1:200,000 (MARCAINE) 30 ML VIAL INJ ONE (11:45)
--- NOTE | 2021-10-03 12:46 | Consultation - Ortho ---
Consult - Ortho Subjective Date of Exam 10/03/21 Chief Complaint Fall this morning. 3 weeks status post right total knee arthroplasty by Dr. Santos HPI/Events since last exam Mrs Edmond Fell this morning while at home directly on the front of the left knee. She had a left total knee arthroplasty by Dr. Santos on 09/12/2021. She saw him last week and had her ruperto removed. She states she was doing very well prior to her fall today. She was seen in the emergency room noted to have opening of her incision midportion. Dr. Jimenez called Dr. Santos who was not available today so I saw the patient in the emergency room. I talked to Dr. Santos about proceeding with closure of the wound. Medical, Surgical History Reviewed and no additions or change Social History Reviewed and no additions or change Family History Reviewed and no additions or change Review of Systems Reviewed and no additions or changes Allergies: Coded Allergies: codeine (Verified Allergy, Severe, ANAPHYLAXIS BUT PT CAN TAKE MORPHINE, 08/19/19) sulfamethoxazole (Verified Allergy, Severe, 08/19/19) "STROKE-LIKE" SYMPTOMS trimethoprim (Verified Allergy, Severe, 08/19/19) "STROKE-LIKE" SYMPTOMS venom-honey bee (Verified Allergy, Unknown, 08/19/19) Home Meds Active Scripts Apixaban (Eliquis) 2.5 Mg Tablet, 2.5 MG PO BID for 12 Days, #24 TAB 0 Refills Prov:BRIANNA SANTOS MD 09/14/21 Reported Medications Celecoxib (Celebrex) 50 Mg Capsule, 50 MG PO BID, CAP 09/06/21 Trazodone HCl (Trazodone HCl) 100 Mg Tablet, 100 MG PO HS, TAB 01/13/20 Pantoprazole Sodium (Pantoprazole Sodium) 40 Mg Tablet.dr, 40 MG PO DAILY, TAB 01/13/20 Cetirizine HCl (Cetirizine HCl) 10 Mg Tablet, 10 MG PO DAILY, TAB 01/13/20 Tizanidine HCl (Tizanidine HCl) 4 Mg Capsule, 4 MG PO TID PRN for MUSCLE SPASMS, CAP 01/13/20 Albuterol Sulfate (Albuterol Sulfate) 2.5 Mg/3 Ml Vial.neb, 2.5 MG NEB BID PRN for SHORTNESS OF BREATH, EA 01/13/19 Albuterol Sulfate (Albuterol Sulfate) 2.5 Mg/3 Ml Vial.neb, 2.5 MG NEB BID, EA 01/13/19 Tiotropium [place] (Spiriva) 1 Inh Aerp, 1 CAP INH DAILY, INHALER 01/13/19 Albuterol Sulfate (PROAIR HFA) 1 Puff Puff, 2 PUFF IH Q6H PRN for SHORTNESS OF BREATH, INHALER 1 PUFF = 90 MCG 01/13/19 Gabapentin (Gabapentin) 400 Mg Capsule, 400 MG PO TID, CAP 01/13/19 Hydroxyzine HCl (Hydroxyzine HCl) 25 Mg Tablet, 25 MG PO TID PRN for ANXIETY, TAB 01/13/19 Buspirone HCl (Buspirone HCl) 15 Mg Tablet, 15 MG PO TID, TAB 01/13/19 Mirabegron (Myrbetriq) 50 Mg Tab.er.24h, 50 MG PO HS, TAB 01/13/19 Escitalopram Oxalate (Escitalopram Oxalate) 20 Mg Tablet, 20 MG PO DAILY, TAB 01/13/19 Topiramate (Topiramate) 100 Mg Tablet, 100 MG PO DAILY, TAB 01/13/19 Tramadol HCl (Tramadol HCl) 50 Mg Tablet, 50-100 MG PO TID, TAB 01/13/19 Meloxicam (Meloxicam) 7.5 Mg Tablet, 7.5 MG PO DAILY, TAB 03/26/18 Budesonide/Formoterol Fumarate (Symbicort 160-4.5 Mcg Inhaler) 10.2 Gm Hfa.aer.ad, 2 PUFF INH BID, INHALER 04/12/16 Montelukast Sodium (Montelukast Sodium) 10 Mg Tablet, 10 MG PO HS, TAB 04/12/16 Ropinirole HCl (Ropinirole HCl) 0.5 Mg Tablet, 0.5 MG PO HS, TAB 04/12/16 Simvastatin (Simvastatin) 40 Mg Tablet, 40 MG PO HS, TAB 04/12/16 Objective Exam Constitutional: [] HEENT: [] Neck: [] Cardiovascular: [] Respiratory: [] Gastrointestinal: [] Genitourinary: [] Skin: [] Back/Spine: [] Extremities: Left kneeher wound shows no bleeding. There is no redness or drainage. The length of the wound is 6 cm and the skin is 8 mm. No debris.This is in the midportion of her wound. The upper and lower aspects of the wounds are healing well without redness or drainage.[] Neurologic: [] Psychiatric: [] Hematologic/lymphatic/immunologic: [] Vital Signs Vital Signs Date Time Temp Pulse Resp B/P (MAP) Pulse Ox O2 Delivery O2 Flow Rate FiO2 10/03/21 09:07 35.5 10/03/21 09:03 67 145/77 (99) 76 145/79 (101) 90 139/81 (100) 10/03/21 08:42 35.5 68 20 135/77 (96) 97 Room Air Lab Results Laboratory Tests 10/03/21 09:05: White Blood Count 8.8, Red Blood Count 4.24, Hemoglobin 13.3, Hematocrit 43, Mean Corpuscular Volume 101H, Mean Corpuscular Hemoglobin 31, Mean Corpuscular Hemoglobin Concent 31L, Red Cell Distribution Width 14.9H, Platelet Count 224, Mean Platelet Volume 10.8, Immature Granulocyte % (Auto) 1, Neutrophils (%) (Auto) 63, Lymphocytes (%) (Auto) 25, Monocytes (%) (Auto) 10, Eosinophils (%) (Auto) 1, Basophils (%) (Auto) 0, Neutrophils # (Auto) 5.6, Lymphocytes # (Auto) 2.2, Monocytes # (Auto) 0.9, Eosinophils # (Auto) 0.1, Basophils # (Auto) 0.0, Immature Granulocyte # (Auto) 0.1, Sodium Level 143, Potassium Level 3.9, Chloride Level 108H, Carbon Dioxide Level 23, Anion Gap 12, Blood Urea Nitrogen 23H, Creatinine 0.89, Estimat Glomerular Filtration Rate 75, BUN/Creatinine Ratio 26, Glucose Level 93, Calcium Level 9.5 10/03/21 09:30: Urine Color YELLOW, Urine Clarity CLEAR, Urine pH 5.5, Urine Specific [place] >=1.030, Urine Protein NEGATIVE, Urine Glucose (UA) NEGATIVE, Urine Ketones NEGATIVE, Urine Nitrite POSITIVEH, Urine Bilirubin NEGATIVE, Urine Urobilinogen 0.2, Urine Leukocyte Esterase TRACEH, Urine RBC (Auto) NEGATIVE, Urine RBC NONE, Urine WBC 10-25H, Urine Squamous Epithelial Cells 2-5, Urine Crystals NONE, Urine Bacteria LARGEH, Urine Casts NONE, Urine Mucus SMALLH, Urine Culture Indicated YES, Urine Opiates Screen NEGATIVE, Urine Oxycodone Screen NEGATIVE, Urine Methadone Screen NEGATIVE, Urine Propoxyphene Screen NEGATIVE, Urine Barbiturates Screen NEGATIVE, Ur Tricyclic Antidepressants Screen NEGATIVE, Urine Phencyclidine Screen NEGATIVE, Urine Amphetamines Screen NEGATIVE, Urine Methamphetamines Screen NEGATIVE, Urine Benzodiazepines Screen NEGATIVE, Urine Cocaine Screen NEGATIVE, Urine Cannabinoids Screen NEGATIVE Imaging X-rays were reviewed which shows good position of the total knee components with no other abnormalities Assessment and Plan Assessment Wound dehiscence 3 weeks postop Problem List Status post left total knee Plan The above was discussed with the patient. Again I discussed options with Dr. Santos. Basically the skin is just where she struck her knee. No debris is noted. This could be closed probably in the ER after irrigation or up in the OR. I talked to anesthesia and they said it be at least 430 before they could proceed so I elected to wash this out in the ER and close it. Dr. Santos was fine with that. Procedurethe patient was given 2 g Ancef IV in the emergency room. I cleansed the skin around the incision with Betadine and then injected the incision with a 50-50 mixture of 1% Xylocaine and 0.25% Marcaine. 20 mL total. I then scrubbed the wound with a scrub brush and hexachlorophene. Then irrigated the wound out with 1000 mL of normal saline. I then closed the wounds in layers wi th 2-0 Vicryl and 3-0 nylon. I did inject another 5 mL of 1% Xylocaine in the upper medial aspect the wound as the patient still had some sensation there. The wound closed very well. I then dressed the wound with Betadine 4 x 4's Curlex and an Jeramie wrap. The patient requested pain medication stronger than tramadol. I prescribed hydrocodone 5/325 #20 which she can take 1 every 6 hours as needed pain. Continue with tramadol as needed. Also prescribed Keflex 500 mg #42 she will take 1 every 6 hours x1 week. Follow-up in the office with Dr. Santos next week for recheck of wound. Final Diagonsis Status post left total knee arthroplasty with Traumatic wound dehiscence Level of the visit: Level 3 PAIGE CERVANTES MD Oct 03, 2021 12:46
[2021-10-03 13:23] VITALS: BP 154/75
== END 2021-10-03 13:23 | disposition home or self-care (01) ==
LOC: EDUNIT# 08:08 → ER 08:10
DX: T81.31XA Disruption of external operation (surgical) wound, not elsewhere classified, initial encounter (principal); N30.00 Acute cystitis without hematuria; F17.210 Nicotine dependence, cigarettes, uncomplicated; F17.290 Nicotine dependence, other tobacco product, uncomplicated; Z96.653 Presence of artificial knee joint, bilateral; W18.30XA Fall on same level, unspecified, initial encounter
CPT/HCPCS: 12002; 36415; 73562; 80048; 80306; 81000; 85025; 87077; 87088; 87186

== ENCOUNTER 2021-10-06 08:36 | Outpatient (RCR) | payer MEDICARE, MEDICAID ==
[~2021-10-06 08:36] MED LIST changes: +OMEP20TA56 PO; -OMEP20TA7 PO
[2021-10-09] MEDS ORDERED: CIPR-225 PO (18:15)
== END 2021-10-08 | disposition home or self-care (01) ==
PROVIDERS: ATTEND Orthopaedic Surgery
DX: Z09 Encounter for follow-up examination after completed treatment for conditions other than malignant neoplasm (principal); I10 Essential (primary) hypertension; E78.00 Pure hypercholesterolemia, unspecified; E11.9 Type 2 diabetes mellitus without complications

== ENCOUNTER 2021-10-14 10:45 | Outpatient (RCR) | payer MEDICARE, MEDICAID ==
[~2021-10-14 10:45] MED LIST changes: +CIPR-225 PO; -QUIN10TA14 PO; +QUIN10TA31 PO; -QUIN20TA16 PO; +QUIN20TA36 PO
== END 2021-11-08 | disposition home or self-care (01) ==
PROVIDERS: ATTEND Orthopaedic Surgery
DX: Z47.1 Aftercare following joint replacement surgery (principal); Z96.652 Presence of left artificial knee joint

== ENCOUNTER → 2021-10-18 | Outpatient (CLI) | payer MEDICARE, MEDICAID ==
[~2021-10-18] MED LIST changes: +QUIN10TA14 PO; -QUIN10TA31 PO; +QUIN20TA16 PO; -QUIN20TA36 PO
--- NOTE | 2021-10-18 15:33 | Diagnostic Imaging Report ---
INDICATION: Postoperative follow-up. Some pain EXAMINATION: Left knee 10/18/2021 COMPARISON: 09/12/2021 FINDINGS: 2 views of the knee. The anterior skin ruperto have been removed in the interval. There is persistent soft tissue prominence anteriorly. The total knee arthroplasty appears intact and well aligned. No evidence for loosening or fracture. IMPRESSION: 1. Expected postoperative findings with no acute osseous abnormality. Dictated by: Dictated on workstation # [id number]
== END ==
LOC: ORTHO 09:39
PROVIDERS: ATTEND Orthopaedic Surgery
DX: Z47.89 Encounter for other orthopedic aftercare (principal); Z98.890 Other specified postprocedural states
CPT/HCPCS: 73560

== ENCOUNTER → 2022-01-26 | Outpatient (CLI) | payer MEDICARE, MEDICAID ==
[~2022-01-26] MED LIST changes: -QUIN10TA14 PO; +QUIN10TA31 PO; -QUIN20TA16 PO; +QUIN20TA36 PO
== END ==
LOC: ORTHO 09:21
PROVIDERS: ATTEND Orthopaedic Surgery
DX: Z96.652 Presence of left artificial knee joint (principal)
CPT/HCPCS: 99213

== ENCOUNTER → 2022-02-06 | Outpatient (CLI) | payer MEDICARE, MEDICAID ==
[~2022-02-06] MED LIST changes: +CATHETER FLUSH 10 ML SYR IV PRN; +HOLD METFORMIN - RECEIVED CONTRAST 20 ML VIAL IV SCH; +IOHEXOL 350 MG/ML 100 ML (OMNIPAQUE 350) VIAL IV ONE; +NS 100 ML (IVPB) BAG IV ONE
--- NOTE | 2022-02-06 11:07 | Diagnostic Imaging Report ---
INDICATION: Difficulty breathing, pulmonary nodules. TECHNIQUE: Multiple contiguous axial images were obtained through the chest after administration of intravenous contrast. Auto Exposure Controls were utilized during the CT exam to meet ALARA standards for radiation dose reduction. Comparison made to 06/16/2020. There are no enlarged mediastinal or hilar nodes. There are no enlarged axillary nodes or chest wall lesions. There is no pleural or pericardial fluid. Lung parenchymal windows demonstrate extensive emphysematous changes. There is an ovoid pulmonary nodule in the right middle lobe along the pleural surface, this measures about 9 mm in diameter and is unchanged compared to the prior study. Small nodule in the left upper lobe measuring about 6 mm is also unchanged. No new discrete pulmonary nodule is seen. There is no focal infiltrate. IMPRESSION: Stable pulmonary nodules compared to the previous study as described above. Underlying emphysematous change. Since these nodules are stable over 2 years' time, additional followup is not needed unless clinically warranted. Dictated by: Dictated on workstation # [id number]
== END ==
LOC: RAD 09:14
PROVIDERS: ATTEND Nurse Practitioner Family
DX: J43.9 Emphysema, unspecified (principal); R91.8 Other nonspecific abnormal finding of lung field
CPT/HCPCS: 71260

== ENCOUNTER → 2022-03-27 | Outpatient (CLI) | payer OTHER, MEDICAID ==
[~2022-03-27] MED LIST changes: -CATHETER FLUSH 10 ML SYR IV PRN; -HOLD METFORMIN - RECEIVED CONTRAST 20 ML VIAL IV SCH; -IOHEXOL 350 MG/ML 100 ML (OMNIPAQUE 350) VIAL IV ONE; -NS 100 ML (IVPB) BAG IV ONE; +RT-ALBUTEROL SULF 2.5 MG/3 ML PRE-MIX VIAL INH ONE
== END ==
LOC: RT 10:45
PROVIDERS: ATTEND Nurse Practitioner Family
DX: J43.9 Emphysema, unspecified (principal)
CPT/HCPCS: 94060; 94726; 94729